=== PATIENT | male | born 1995 | race Caucasian/White ===

== ENCOUNTER 2022-09-09 08:54 | Emergency (ER) | payer MEDICAID, SELFPAY ==
[2022-09-09 09:00] VITALS: BP 142/86; PULSE 89; RESP 20; TEMP 36.7; O2SAT 97
--- NOTE | 2022-09-09 09:13 | ED.EAR ---
HPI - Ear Problem General Chief complaint: Ear Stated complaint: ears Time Seen by Provider: 09/09/22 09:14 Source: patient, RN notes reviewed and old records reviewed Mode of arrival: ambulatory Limitations: no limitations History of Present Illness HPI Narrative: 27 year old male who presents to [facility] with complaints of right ear pain for the past month but consistent discomfort for the past week. Patient reports he has feelings of fluid in his ear with some intermittent pain. Patient reports he has been taking Singulair daily using nasal saline also some nasal spray OTC from [facility]. Patient denies any fevers chills or sweats, or body aches. Patient reports chronic sinus congestion and drainage reports that he has had sinus surgery in past. MD Complaint: ear pain Location: right ear Duration: intermittent Severity: moderate Discharge from ear: Reports no Treatment prior to arrival: eardrops Related Data Home Medications Medication Instructions Recorded Confirmed amlodipine 10 mg tablet mg 09/09/22 lisinopril 10 mg tablet mg 09/09/22 montelukast 10 mg tablet mg 09/09/22 omeprazole 40 mg capsule,delayed mg 09/09/22 release pravastatin 40 mg tablet mg 09/09/22 sitagliptin phosphate 25 mg tablet mg 09/09/22 (Januvia) Allergies Allergy/AdvReac Type Severity Reaction Status Date / Time No Known Allergies Allergy Verified 09/09/22 09:16 Review of Systems Review of Systems: CONSTITUTIONAL: Denies malaise, chills, sweats, or fever. EYES: Denies visual changes, redness, or discharge. ENT: Reports rhinorrhea, congestion, sinus pain, right otalgia no sore throat. CARDIOVASCULAR: Denies chest pain, palpitations, or edema. RESPIRATORY: Reports no acute cough.? Denies dyspnea. GASTROINTESTINAL: Denies abdominal pain, nausea, vomiting, diarrhea SKIN: Denies rash or itching. MUSCULOSKELETAL: Denies myalgia. NEUROLOGIC: Reports some headaches. All systems reviewed & are unremarkable except as noted in HPI and below PMFSH Past Medical History Medical History (Updated 09/10/22 @ 08:44 by Opal Hood NP) Arthrogryposis Sinus infection Surgical History Surgical History (Updated 09/09/22 @ 09:38 by Opal Hood NP) History of sinus surgery Hx of appendectomy Social History Social History Smoking status: Never smoker Substance use type: does not use Living arrangements: with family Gender identity (if verbalized by the patient): Male Comments At time of signature, agree with nursing past medical, surgical, social and family history. There is no relevant family history pertinent to the presenting complaint Exam Narrative: GENERAL: Well-appearing, well-nourished, and in no acute distress. HEAD: Normocephalic EYES: PERRLA, conjunctivae clear ENT: Nares clear, turbinates edematous and erythematous, clear discharge. Mucous membranes moist. TM pearly retana with dull light reflex bilaterally; no tragal tenderness.fluid noted on right TM.. Oropharynx erythematous without lesions. Tonsils not enlarged and without exudate, no drooling, no hoarseness, no trismus, uvula midline.post nasal drainage NECK: Supple. No lymphadenopathy CHEST: Clear to auscultation, breath sounds equal. No wheezing, rhonchi, rales, or stridor. No respiratory distress, speaks in full sentences.no cough, SAO2 97% on room air HEART: Regular rate and rhythm. No murmur heard. SKIN: Warm, dry, no rash. NEURO: Alert and oriented x3. PSYCH: Normal mood and affect Course Course Emergency Course: Patient is aware of diagnosis, understands and agrees to treatment plan.? Anticipatory guidance given.? Patient agrees to follow-up as directed and is aware of reasons to seek care at the emergency department. Portions of this record may have been created with voice recognition software Level of Care: [facility] Care Visit V
== END 2022-09-09 09:33 | disposition home or self-care (01) ==
PROVIDERS: Emergency Provider Registered Nurse; PCP Internal Medicine
DX: H69.91 Unspecified Eustachian tube disorder, right ear (principal); J06.9 Acute upper respiratory infection, unspecified
CPT/HCPCS: 99203; G0463

== ENCOUNTER 2023-05-06 15:29 | Emergency (ER) | payer OTHER, MEDICAID, SELFPAY ==
--- NOTE | ~2023-05-06 | US_ITS ---
US scrotum doppler DATE: 05/06/2023 16:59 INDICATION: Scrotal pain TECHNIQUE: Real-time and color flow imaging and Doppler analysis COMPARISON: None FINDINGS: The right testicle measures 4.2 x 2 x 3 cm. The left testicle measures 4.6 x 2.1 x 2.5 cm. No testicular mass lesion or torsion is evident. There is vascular flow to both testicles. There is an approximately 7 mm cyst of the head of the right epididymis. No hydrocele or varicocele is demonstrated. IMPRESSION: No testicular mass lesion or torsion 7 mm cyst of head of right epididymis Reviewed, dictated and finalized at [facility]. Reviewed, dictated and finalized at [facility]. [facility] SERVICE COORDINATOR
[2023-05-06 15:36] VITALS: BP 134/97; PULSE 100; RESP 18; TEMP 37; O2SAT 100
--- NOTE | 2023-05-06 19:01 | ED.MALEGU ---
HPI - Male Genitourinary General Chief complaint: Urogenital-Male Stated complaint: Testicle pain Time Seen by Provider: 05/06/23 18:52 Source: patient Mode of arrival: ambulatory Limitations: no limitations History of Present Illness HPI Narrative: This is a 28 year old male that presents to the ER for right testicular pain. Reports intermittent over the last couple of weeks. Reports some dysuria. The pain worsened today which prompted him to be seen. Reports no concern for STDs. Denies fever, edema, erythema or hematuria. Related Data Home Medications Medication Instructions Recorded Confirmed amlodipine 10 mg tablet mg 09/09/22 lisinopril 10 mg tablet mg 09/09/22 montelukast 10 mg tablet mg 09/09/22 omeprazole 40 mg capsule,delayed mg 09/09/22 release pravastatin 40 mg tablet mg 09/09/22 sitagliptin phosphate 25 mg tablet mg 09/09/22 (Januvia) Allergies Allergy/AdvReac Type Severity Reaction Status Date / Time No Known Allergies Allergy Verified 09/09/22 09:16 Review of Systems Review of Systems: CONSTITUTIONAL: Denies fever GASTROINTESTINAL: Denies abdominal pain, nausea, vomiting GENITOURINARY: Reports dysuria. Denies hematuria. SKIN: Denies rash All systems reviewed & are unremarkable except as noted in HPI and below PMFSH Past Medical History Medical History (Updated 05/06/23 @ 20:07 by Gloria Whyte PA-C) Arthrogryposis History of gastroesophageal reflux (GERD) History of hyperlipidemia History of hypertension Surgical History Surgical History (Updated 09/09/22 @ 09:38 by Opal Hood NP) History of sinus surgery Hx of appendectomy Social History Social History Smoking status: Never smoker Substance use type: does not use Living arrangements: with family Gender identity (if verbalized by the patient): Male Exam Narrative: GENERAL: Well-appearing, well-nourished, and in no acute distress. HEAD: Normocephalic, atraumatic. EYES: EOMI. CHEST: Clear to auscultation. No respiratory distress. No wheezes rales or rhonchi HEART: Regular rate and rhythm. No murmur heard. Normal peripheral pulses. ABDOMEN: Soft, nontender, nondistended, normal active bowel sounds. No CVA tenderness EXTREMITIES: Normal range of motion. No edema. SKIN: Warm, dry, no rash. NEURO: No focal deficits. Alert and oriented x3. PSYCH: Normal mood and affect MALE GENITAL: No abnormal rashes or lesions. Mild tenderness to palpation of the right testicle. No abnormal erythema or edema of the scrotum Course Course Emergency Course: Patient updated on his workup. Reports he has outpatient follow up with urology. Would like to be discharged and follow up as planned Vital Signs Vital signs: Vital Signs Temperature 98.6 F 05/06/23 15:36 Pulse Rate 100 05/06/23 15:36 Respiratory Rate 18 05/06/23 15:36 Blood Pressure 134/97 H 05/06/23 15:36 Pulse Oximetry 100 05/06/23 15:36 Oxygen Delivery Room Air 05/06/23 15:36 Temperature 98.6 F 05/06/23 15:36 Pulse Rate 100 05/06/23 15:36 Respiratory Rate 18 05/06/23 15:36 Blood Pressure 134/97 H 05/06/23 15:36 Pulse Oximetry 100 05/06/23 15:36 Oxygen Delivery Room Air 05/06/23 15:36 MDM - Male Genitourinary MDM Narrative Medical decision making narrative: Patient presents to the emergency department for right testicular pain ongoing over the last couple of weeks. He is afebrile and nontoxic appearing. No concerning findings on exam. UA without evidence of infection. Testicular ultrasound shows a 7 mm cyst of the head of the right epididymis. No other acute abnormalities. Patient updated on his workup. Reports he has outpatient follow up with urology. Would like to be discharged and follow up as planned. He was given warnings to return to the ER Differential Diagnosis Differential diagnosis: Likely urinary tract infection, epididymitis and ot
--- NOTE | 2023-05-06 19:15 | PC.NURSE ---
Report received from BRYANT Gongora. Assumed care of patient at this time.
[2023-05-06 19:52] LABS: Appearance Urine Clear (Clear); Bacteria Urine None Seen /hpf; Bilirubin Urine Negative (Negative); Blood Urine Negative (Negative); Color Urine Dark Yellow (Yellow); Glucose Urine UA Negative (Negative); Ketones Urine Negative (Negative); Leukocyte Esterase Ur Negative LEU/UL (Negative); Nitrate Urine Negative (Negative); Non Pathogenic Casts 0-2; Protein Urine Trace mg/dL (Negative); RBC Urine 0-2 /hpf (0-2); Squamous Epithelial Cell Urine None seen /hpf (Few); WBC Urine 0-5 /hpf
[2023-05-06 19:54] LABS: Add Urine Microscopic? YES
== END 2023-05-06 20:35 | disposition home or self-care (01) ==
PROVIDERS: Emergency Provider Physician Assistant; PCP Internal Medicine
DX: N50.811 Right testicular pain (principal); E78.5 Hyperlipidemia, unspecified; I10 Essential (primary) hypertension
CPT/HCPCS: 76870; 81001; 93976; 99284

== ENCOUNTER 2023-12-12 18:34 | Emergency (ER) | payer OTHER, MEDICAID, SELFPAY ==
[2023-12-12 18:40] VITALS: BP 132/90; PULSE 91; RESP 20; TEMP 37.2; O2SAT 98
--- NOTE | 2023-12-12 18:51 | ED.GENADULT ---
HPI - General Adult General Chief complaint: Upper Respiratory Infection Stated complaint: Sore Throat/Headache Time Seen by Provider: 12/12/23 18:51 Source: patient, RN notes reviewed and old records reviewed Mode of arrival: ambulatory Limitations: no limitations History of Present Illness HPI narrative: 28-year-old male to [facility] for complaint of sore throat, headache, bilateral ear pain worse on the right, excessive sweating intermittently for 1 month. Patient reports history of sinus issues including septoplasty. Patient endorses 12 year history of chewing tobacco use; quit 3 years ago. Patient verbalizes concern for malignancy due to tobacco history. Patient has attempted to treat at home with [id number] medications with little relief. Patient denies shortness of breath, difficulty swallowing, hoarseness, fever, chest pain. Patient reports that he is anticipating the arrival of his baby girl in December wants to make sure that he does not have anything that is contagious. Patient able to tolerate fluids by mouth. Respirations even and nonlabored. Patient able to speak in complete sentences without difficulty. Patient in no acute distress. Related Data Home Medications Medication Instructions Recorded Confirmed amlodipine 10 mg tablet 10 mg PO DAILY 09/09/22 12/12/23 lisinopril 10 mg tablet 10 mg PO DAILY 09/09/22 12/12/23 montelukast 10 mg tablet 10 mg PO DAILY 09/09/22 12/12/23 omeprazole 40 mg capsule,delayed 40 mg PO DAILY 09/09/22 12/12/23 release pravastatin 40 mg tablet 40 mg PO DAILY 09/09/22 12/12/23 sitagliptin phosphate 25 mg tablet 25 mg PO DAILY 09/09/22 12/12/23 (Januvia) bupropion HCl 75 mg tablet 75 mg PO BID 12/12/23 12/12/23 ezetimibe 10 mg tablet 10 mg PO DAILY 12/12/23 12/12/23 linagliptin 5 mg tablet (Tradjenta) 5 mg PO DAILY 12/12/23 12/12/23 sulfasalazine 500 mg 500 mg PO BID 12/12/23 12/12/23 tablet,delayed release tretinoin 0.1 % topical cream See Rx Instructions .Route .COMPLEX 12/12/23 12/12/23 vilazodone 10 mg tablet 10 mg PO DAILY 12/12/23 12/12/23 Allergies Allergy/AdvReac Type Severity Reaction Status Date / Time No Known Allergies Allergy Verified 12/12/23 18:58 Review of Systems Review of Systems: All systems reviewed & are unremarkable except as noted in HPI and below Constitutional: Constitutional: Reports as per HPI, Reports excessive sweating and Reports headache(s) Eyes: Eyes: Reports no additional eye complaints ENT: Reports as per HPI, Reports otalgia ( Bilateral; worsening right), Reports nasal congestion and Reports sore throat Cardiovascular: Cardiovascular: Reports no additional cardiovascular complaints, Denies chest pain and Denies dyspnea Respiratory: Respiratory: Reports no additional respiratory complaints, Denies cough and Denies dyspnea Musculoskeletal: Musculoskeletal: Reports no additional musculoskeletal complaints Neurologic: Reports system reviewed and no additional complaints, except as documented Psychiatric: Psychiatric: Reports no additional psychiatric complaints PMFSH Past Medical History Medical History Arthrogryposis History of gastroesophageal reflux (GERD) History of hyperlipidemia History of hypertension Surgical History Surgical History History of sinus surgery Hx of appendectomy Social History Social History Smoking status: Never smoker Substance use type: does not use Living arrangements: with family Gender identity (if verbalized by the patient): Male Comments At the time of my signature, I reviewed and agree with the nursing past medical, surgical, social, and family history. There is no relevant family history pertinent to the patient complaint. Exam Const: General: cooperative, no acute distress, alert, tired appe
[2023-12-12 19:13] LABS: EDINFLUASCREEN Negative; EDINFLUBSCREEN Negative
[2023-12-12 19:14] LABS: EDMONONEGPOS Negative; EDSTREPNEGPOS1 Presumptive Negative
== END 2023-12-12 19:25 | disposition home or self-care (01) ==
PROVIDERS: Emergency Provider Nurse Practitioner Family; PCP Internal Medicine
DX: H66.92 Otitis media, unspecified, left ear (principal); Z20.822 Contact with and (suspected) exposure to COVID-19; K21.9 Gastro-esophageal reflux disease without esophagitis; E78.5 Hyperlipidemia, unspecified; I10 Essential (primary) hypertension; Z87.891 Personal history of nicotine dependence
CPT/HCPCS: 36416; 86308; 87081; 87426; 87804; 87880; 99213; G0463

== ENCOUNTER 2024-05-06 10:10 | Emergency (ER) | payer OTHER, MEDICAID, SELFPAY ==
[2024-05-06 10:26] VITALS: BP 141/95; PULSE 105; RESP 18; TEMP 37.6; O2SAT 98
--- NOTE | 2024-05-06 10:44 | ED.URI ---
HPI - URI/Sore Throat General Chief Complaint: Upper Respiratory Infection Stated Complaint: Sore Throat/Headache History of Present Illness HPI Narrative: Patient presents with sore throat, nasal drainage cough fever and body aches. No shortness of breath no chest pain no trouble swallowing no drooling. Patient is not taking thing [id number] for symptoms. Related Data Home Medications ?Medication ?Instructions ?Recorded ?Confirmed ?Last Taken ?Type amlodipine 10 mg tablet 10 mg PO DAILY 09/09/22 05/06/24 Unknown History lisinopril 10 mg tablet 10 mg PO DAILY 09/09/22 05/06/24 Unknown History montelukast 10 mg tablet 10 mg PO DAILY 09/09/22 05/06/24 Unknown History omeprazole 40 mg capsule,delayed 40 mg PO DAILY 09/09/22 05/06/24 Unknown History release pravastatin 40 mg tablet 40 mg PO DAILY 09/09/22 05/06/24 Unknown History bupropion HCl 75 mg tablet 75 mg PO BID 12/12/23 05/06/24 Unknown History ezetimibe 10 mg tablet 10 mg PO DAILY 12/12/23 05/06/24 Unknown History linagliptin 5 mg tablet (Tradjenta) 5 mg PO DAILY 12/12/23 05/06/24 Unknown History sulfasalazine 500 mg 500 mg PO BID 12/12/23 12/12/23 Unknown History tablet,delayed release vilazodone 10 mg tablet 10 mg PO DAILY 12/12/23 12/12/23 Unknown History sulfasalazine 500 mg tablet 05/06/24 Unknown History Allergies Allergy/AdvReac Type Severity Reaction Status Date / Time No Known Allergies Allergy Verified 05/06/24 10:22 Review of Systems Review of Systems: CONSTITUTIONAL: Denies chills, or sweats. Reports fever and generalized body aches EYES: Denies visual changes, redness, or discharge. ENT: Denies otalgia. Reports nasal congestion runny nose and sore throat CARDIOVASCULAR: Denies chest pain, palpitations, or edema. RESPIRATORY: Denies dyspnea. Reports occasional cough GASTROINTESTINAL: Denies abdominal pain, nausea, vomiting, or diarrhea. GENITOURINARY: Denies dysuria or hematuria. SKIN: Denies rash or itching. MUSCULOSKELETAL: Denies back pain, joint pain, or myalgia. Reports generalized body aches NEUROLOGIC: Denies headache, numbness, or weakness. PSYCHIATRIC: Denies anxiety or depression. [facility] Past Medical History Medical History Arthrogryposis History of gastroesophageal reflux (GERD) History of hyperlipidemia History of hypertension Surgical History Surgical History History of sinus surgery Hx of appendectomy Social History Social History Smoking status: Never smoker Substance use type: does not use Living arrangements: with family Gender identity (if verbalized by the patient): Male Comments At time of signature, agree with nursing past medical, surgical, social and family history. There is no relevant family history pertinent to the presenting complaint Exam Narrative: The patient is a well-developed, well-nourished in no acute distress. SKIN: Skin is warm and dry without erythema, swelling or exudate. There is good turgor. No tenting. HEAD: Atraumatic. Normocephalic. No temporal or scalp tenderness. EYES: Moist and bright. Sclera and conjunctivae normal. No discharge. PERRLA. Extraocular motions intact. Gross visual acuity intact. EARS: Pinna is normal shape and contour. Clear external auditory canals. TM pearly hazel with good cone of light, no erythema or suppuration. Bilateral cerumen noted no gross hearing deficit. NOSE: pink, moist mucosa with good air movement. Clear rhinorrhea without nasal flaring. Septum midline. Mouth: moist mucous membranes. THROAT; mild erythema noted to posterior oropharynx with moderate postnasal drainage. Without exudate or ulceration.. Uvula midline. Normal movement of soft palate. NECK: Supple and nontender with full range of motion without discomfort. No meningeal signs. LUNGS: Equal and bilateral breath sounds without wheezes, rales or rhonchi. CHEST: The chest wall is without retractions or use of accessory muscles. HEART: Has a regular rate and rhythm without murmur, gallops, click or rub. ABDOMEN: Soft, nontender with positive active bowel sounds. No rebound tenderness. EXTREMITIES: Without cyanosis, clubbing or edema. Equal 2+ distal pulses and 2 second capillary refill noted. NEUROLOGIC: alert, active, . The patient moves all extremities with normal muscle strength. Normal muscle tone is noted. Normal coordination is noted. NO focal neurological findings noted. Course Course Level of Care: Express Care Visit Vital Signs Vital signs: Vital Signs Temperature 37.6 C 05/06/24 10:26 Pulse Rate 105 H 05/06/24 10:26 Respiratory Rate 18 05/06/24 10:26 Blood Pressure 141/95 H 05/06/24 10:26 Pulse Oximetry 98 05/06/24 10:26 Oxygen Delivery Room Air 05/06/24 10:26 Temperature 37.6 C 05/06/24 10:26 Pulse Rate 105 H 05/06/24 10:26 Respiratory Rate 18 05/06/24 10:26 Blood Pressure 141/95 H 05/06/24 10:26 Pulse Oximetry 98 05/06/24 10:26 Oxygen Delivery Room Air 05/06/24 10:26 Please ISAAC schedule a followup visit with your personal physician for further evaluation and treatment. Including recheck and discussion of your blood pressure. If your symptoms persist, change or worsen significantly before you can contact your personal physician then please, without delay, go to the emergency department for further evaluation Discharge Plan Discharge Clinical Impression: Upper respiratory infection, Viral infection Patient Disposition: Home, Self-Care Condition: Stable Instructions: Antibiotic Form Additional Instructions: *Throw away your current toothbrush and begin using a new toothbrush in 48 hours in order to prevent re-infection. If anyone else's toothbrush is stored near yours, they should also throw away their current toothbrush and begin using a new one. *Sanitize all reusable water bottles. *Do not share items with others. *Wash your hands often. Supportive care/Soothing measures/Pain relief: *Avoid cigarette smoke (including secondhand smoke) *Avoid acidic foods and beverages *Eat a soft diet for the next 3-4 days *Salt water gargles may alleviate some of the throat discomfort. Most recipes call for ? to ? teaspoon of salt per 8 ounces (approximately 240 mL) of warm water. *You can take tylenol or ibuprofen per the package instructions for pain/fever. *Sipping cold or warm beverages (eg, tea with honey or lemon) *Eat cold or frozen desserts (eg, ice cream, popsicles) *Sucking on ice *Sucking on hard candy Viruses are everywhere and can spread like wildfire. Sx can last up to 3-4 weeks. Treatment is aimed toward your specific symptoms. You must treat your symptoms in order to feel better while the virus runs it's course. Increase fluids especially water. Do not share items with others. You can take Tylenol or ibuprofen per the package instructions for pain/fever. Wash your hands as often as possible. Purchase and begin using an over the counter antihistamine/decongestant combo such as Zyrtec D, Belinda D, Claritin D as well as Flonase nasal spray per the package instructions. Salt water gargles may alleviate some of your throat discomfort. Go to the ER if your symptoms become worse of if ANY new symptoms develop Patient Language: Tongan Prescriptions: No Action pravastatin 40 mg tablet 40 mg PO DAILY omeprazole 40 mg capsule,delayed release(DR/EC) 40 mg PO DAILY amlodipine 10 mg tablet 10 mg PO DAILY lisinopril 10 mg tablet 10 mg PO DAILY montelukast 10 mg tablet 10 mg PO DAILY bupropion HCl 75 mg tablet 75 mg PO BID ezetimibe 10 mg tablet 10 mg PO DAILY Tradjenta 5 mg tablet 5 mg PO DAILY vilazodone 10 mg tablet 10 mg PO DAILY sulfasalazine 500 mg tablet,delayed release (DR/EC) 500 mg PO BID sulfasalazine 500 mg tablet Follow-up/Referrals: Shakira,MD Pankaj [Primary Care Provider] - Stand Alone Forms: Work/School Release IP
[2024-05-06 10:52] LABS: EDSTREPNEGPOS1 Negative (Negative)
[2024-05-06 11:03] LABS: EDCOVIDSCREEN Negative (Negative); EDINFLUASCREEN Negative (Negative); EDINFLUBSCREEN Negative (Negative)
--- OUTSIDE RECORDS SUMMARY | 2024-05-13 10:42 | XMS_ITS | Encounter Summary ---
Author Organization [facility] Address [address] [place] [address] Care Team Providers Care Mobile Game Engineer Name Role Phone Pankaj Rosenberg MD Primary Care Provider Reason for Visit * Auth/Cert (Routine) Specialty Diagnoses / Procedures Referred By Horacio t Referred To Contact Diagnoses Gallbladder polyp Gallbladder polyp Procedures LAPAROSCOPIC CHOLECYSTECTOMY Referral ID Status Reason Start Date Expiration Date Visits Re quested Visits Authorized [id number] 1 1 Encounter Details Date Type Department Care Team (Late st Contact Info) Description 07/13/2022 7:25 AM DOMESTIC TRAVEL CONSULTANT Anesthesia Event [facility] [address] [place] [address] Ramin Cuello MD [address] [place] [id number] Marla Richard, POSITION DESCRIPTION MANAGER-HONEY BLENDER [address] [facility] [place] [address] Anesthesia Record Procedure Summary Procedure Name Responsible Anesthesiologist Anesthesia Start Time Anesthesia Stop Time LAPAROSCOPIC CHOLECYSTECTOMY (Abdomen) Ramin Cuello MD 07/13/22 0725 07/13/22 0948 Events Date Time Event Comment 07/13/2022 0718 0725 An Start 0725 Pt In Room 0725 An Start Data 0731 PT Reassessment 0731 Induction 0734 An Intubation 0734 Anes Ready 0751 Time Out Anesthesia part icipated in timeout at the time documented in the record by nursing 0753 Proc Start 0933 Proc Stop 0933 An Emergence 0935 Extubation 0938 an stop data 0938 Pt out of Room 0938 ANPTO2 0948 An Stop Meds Name Total ceFAZolin 2,000 mg IVPB 3 g midazolam 2 mg/2mL injection 2 mg fentaNYL 100 mcg/2ml injection 100 mcg propofol 200mg/20mL injection 250 mg rocuronium 50 mg/5 mL injection 120 mg hydromorphone 2 mg/10mL prefilled syring e 1 mg sugammadex 200 mg/2mL injection 250 mg ondansetron 4mg/2mL injection 4 mg dexmedeTOMIDine (Precedex) 80 mcg in 20 mL infusion 20 mcg lactated ringers infusion 750 mL * Agents Name Insp. N2O Exp. Isoflurane Exp. N2O O2 Air Insp. Isoflurane * Blood No blood administrations on file. Lines, Drains, and Airways Type Details Placement Removal Peripheral IV Date: 07/13/22; Time : 06; Orientation: Anterior, Distal, Right; Placed By: MAEGAN; Tolerance: Well 07/13/22 0644 by Maria A Abreu RN 07/13/22 1118 by Mounika Perry RN ETT Date: 07/13/22; Time : 733; Placed By: Saman Orantes; Vent: mask not attempted; Induction: Standard IV, Rapid Sequence; Blade Type: Video; Blade Size: 4; Laryngoscopy View: Grade 1 (full cords); Intubation Adjuncts: Stylet, Video Laryngoscope; Tube: Endotracheal Tube; Placement: Oral; Tube Type: Cuffed-inflated; Tube Size(mm): 8 MM; Depth of Insertion: 23 CM; Measured From: teeth; Attempts: 1; Cuff Infated: Air; Cuff Vol(mL): 10 mL; Verified By: Direct visualization, Bilateral breath sounds, Chest Auscultation, CO2 Monitor 07/13/22 0734 by Jenifer Coto Anes Asst 07/13/22 0935 by Jenifer Coto Anes Asst Peripheral IV Date: 07/13/22; Time : 07; Orientation: Right; Placed By: joann coto; Tolerance: Well, General Anesthesia 07/13/22 0735 by Jenifer Coto Anes Asst 07/13/22 1052 by Mounika Perry RN Gastric Tube 07/13/22; 0745; charleen lindsey, caa; OGT; 18; Well, General Anesthesia; 07/13/22; 0934; lashonda; Per protocol 07/13/22 0745 by Jenifer Coto Anes Asst 07/13/22 0934 by Jenifer Coto, Cherelles Asst Procedural Site (Incision) 07/13/22; 0809; Abdomen; Laparoscopic; 07/13/22; 1727 07/13/22 0809 by Jorge A Keith RN 07/13/22 1727 by Generic, Auto Release documented in this encounter Social History Tobacco Use Types Packs/Day Years Used Date Smoking Tobacco: Never Smokeless Tobacco: Former Chew Quit: 09/15/2020 Alcohol Use Standard Drinks/Week Comments Yes 0 (1 standard drink = 0.6 oz pur e alcohol) occ AUDIT-C Answer Date Recorded Q1: How often do you have a drink containing alc ohol? Monthly or less 03/17/2022 Q2: How many drinks containi ng alcohol do you have on a typical day when you are drinking? 1 or 2 03/17/2022 Q3: How often do you have si x or more drinks on one occasion? Never 03/17/2022 Hunger Vital Sign Answer Date Recorded Within the past 12 months, y ou worried that your food would run out before you got the money to buy more. Never true 03/18/20 22 Within the past 12 months, t he food you bought just didn't last and you didn't have money to get more. Never true 03/18/2022 Sex and Gender Information Value Date Recorded Sex Assigned at Not on file Gender Identity Not on file Sexual Orientation Not on file documented as of this encounter Functional Status Functional Status Response Date of Assess ment Is person deaf or have serious hearing difficult y? No 03/18/2022 Is person blind or have serious difficulty seein g? No 03/18/2022 Does person have serious dif ficulty walking/climbing stairs? No 03/18/2022 Does person have difficulty dressing/bathing? No 03/18/2022 Does person have difficulty doing errands alone? No 03/18/2022 Cognitive Status Response Date of Assessm ent Does person have difficulty concentrating/remembering/making decisions? No 03/18/2022 documented as of this encounter Progress Notes * Ramin Cuello MD - 07/13/2022 11:00 AM CST ANESTHESIA POSTOP EVALUATION NOTE Procedure: LAPAROSCOPIC CHOLECYSTECTOMY (Abdomen) Chuck Barlow is a 27 year old male Patient Vitals for the past 6 hrs: BP Temp Pulse Resp SpO2 Pain Rating Score #1 Pain Scale/Observation Pulse - (SPO2/Cuff) 07/13/22 0940 128/77 99.1 ??F (37.3 ??C) 99 12 97 % 4 N;B -- 07/13/22 0945 117/65 -- 109 23 98 % -- -- -- 07/13/22 0950 114/80 -- 98 20 99 % -- B -- 07/13/22 0955 120/68 -- 99 16 99 % -- -- -- 07/13/22 1000 124/84 -- 95 20 99 % 4 N -- 07/13/22 1005 132/76 -- 92 18 99 % -- -- -- 07/13/22 1010 117/65 -- 97 21 99 % -- -- -- 07/13/22 1015 116/70 98.6 ??F (37 ??C) 100 18 95 % 4 N -- 07/13/22 1020 114/63 -- 92 17 94 % -- -- -- 07/13/22 1025 112/73 -- 96 10 94 % 3 N -- 07/13/22 1038 -- 98.7 ??F (37.1 ??C) -- -- -- -- -- -- 07/13/22 1039 -- 98.7 ??F (37.1 ??C) -- -- -- -- -- -- 07/13/22 1040 -- -- -- -- -- 4 N -- 07/13/22 1045 109/72 -- 91 19 93 % -- -- 90 bpm 07/13/22 1050 120/78 -- 95 13 93 % -- -- 94 bpm 07/13/22 1100 115/76 -- 88 22 93 % -- -- 88 bpm 07/13/22 1101 115/76 -- 94 14 93 % -- -- 94 bpm 07/13/22 1105 122/74 -- 83 26 92 % -- -- 83 bpm 07/13/22 1110 117/72 -- 90 18 94 % -- -- 89 bpm 07/13/22 1115 -- -- -- -- -- 2 N -- Anesthesia Type: general ETT Pre-op Diagnosis Codes: * Gallbladder polyp [K82.4] Mental Status: awake Neuro Status: No numbness, tingling or visual disturbances Respiratory Function: natural Cardiac Function: stable Postop Pain: acceptable to the patient Postop Hydration: adequate Postop Nausea: none Assessment: no apparent anesthetic complications Patient Disposition: Release from Anesthesia Care Additional Comments: Patient reports that pain is well-controlled and is ready for discharge to thenext level of care. NOTABLE EVENTS: There were no known notable events for this encounter. STIC TRAVEL CONSULTANT * aRmin Cuello MD - 06/29/2022 1:45 PM CST Images from the original note were not included. ANESTHESIA PREOPERATIVE EVALUATION NOTE Procedure: LAPAROSCOPIC CHOLECYSTECTOMY WITH POSSIBLE OPEN (Abdomen) Vitals: LMP: No LMP for male patient. OB Status: unknown ANESTHESIA PRE-EVALUATION NOTE History of Present Illness: 27 year old male with history of gastroschisis and small bowel obstruction with multiple growing polyps. He is scheduled for laparoscopic cholecystectomy, possible open with Dr. Miles. Medical history is significant for HLD, KARRIE (CPAP compliant), NIDDM (HgA1c 5.6%), obesity (BMI 37),GERD (well controlled), HTN No known allergies The patient is a current non-smoker. Physical Exam: Orientation X3 Airway/Mallampati Score: III Mouth Opening Distance: 3 fingerwidths Neck ROM: full (thick neck) TM Distance: > 3 FB Teeth: normal Heart: normal - S1 S2 Lungs: clear to ausculation bilaterally (decreased at bases) Abdomen Exam: obese Review of Systems: History of anesthetic complications: Yes Sleep Apnea Risk: Yes, CPAP - compliant Malignant Hyperthermia: No Delayed Emergence: No Emergence Agitation: No Induction/Emergence Bronchospasm: No Post Dural Puncture Headache: No Atypical Pseudocholinesterase: No Difficult IV Access: Yes (use sonosite) GERD: Yes, well controlled Poor Exercise Tolerance: No (can walk 3-4 blocks without CP or SOB at moderate pace) Recent Chest Pain: No Shortness of Breath: No AICD/Pacemaker: No Renal Disease: No Diagnostic Tests: ECG(s) reviewed: Yes Lab(s) reviewed: Yes (06/29/22). Other Findings: 08/18/21 SINUS RHYTHM 78 bpm ANESTHESIA PLAN ASA Score: 2 NPO Status: Patient instructed to be NPO after midnight Anesthesia Plan: general ETT Planned Induction: intravenous Planned Postop Destination: PACU Anesthetic plan was discussed with: patient Anesthetic Plan discussion was: Consented The patient's procedural Anesthetic Plan was discussed with the resident, orthodontic technician assistant and WAFER POLISHING WORKER. This evaluation was based on PAT clinic visit I. Perioperative Cardiac Risk Index Stratification based on 2014 ACC/AHA Guidelines for patients undergoing noncardiac surgery Perioperative risk of a Major Adverse Cardiac Event (MACE) during hospitalization. Add one point (0-6) for each positive RCRI (Revised Cardiac Risk Indicator) 1. Is the surgery high-risk? NO 2. History of ischemic heart disease? NO 3. History of CHF? no New Murmur? no 4. History of cerebrovascular disease? Prior TIA or stroke no Carotid bruit ? no 5. Insulin-dependent Diabetes? YES 6. Preoperative creatinine > 2 mg/dl? no Baseline Cr? 0.8-0.97 Total RCRI / MACE score 1 Point >= 0.9% If MACE < 1%, no further testing required. Proceed to surgery. Patient is at low risk of MACE. If MACE > 1% Elevated risk. Need to assess the patient's functional capacity. 4 METs = Can walk up a flight of steps or a hill or walk on level ground at 3 mph If > 4 METs. Proceed to surgery. If < 4 METs or unknown functional capacity then discuss with attending, as further workup may beindicated. II. Consults: NO III. CIEDs Does patient have a CIED (cardiovascular implantable electronic device eg: PM, AICD)? no IV. Anticoagulants Is patient receiving chronic antiplatelet/ anticoagulant medications? What is periop plan ? NO V. Previous blood transfusion? no VII. Known KARRIE or STOP-BANG> 5 yes Snoring, feel Tired, Observed apnea, high blood Pressure, BMI>35, Age > 50, Neck circumference > 18 VIII. Known or suspected difficult airway no IX. Frailty screen: No data recorded X. Suboxone (Buprenorphine / Naloxone) therapy? N/A XI. Most recent EKG 4/5/22 SINUS RHYTHM 78 bpm No previous ECG available for comparison XII. Additional testing needed within 3 months prior to DOS (if possible, else on DOS) - CBC w/o diff if ASA >= 3 OR expected blood loss >250 OR previously abnormal - BMP if ASA >= 3 AND non low- risk procedure / previously abnormal - CMP (instead of BMP) for patient with chronic liver disease or previously abnormal -PT/ PTT/ INR if recent use of anticoagulants OR scheduled for major vascular procedures including aortic and carotid stents / aneurysm coiling / TIPS Additional testing needed on DOS : - EPOC blood glucose for patients w/ DM - EPOC whole blood K+ for patient with ESRD or poorly controlled K+ Labs ordered today including PAT and surgeon orders: CBC, BMP and T&S Labs/ tests ordered or in need of review on DOS: T&S and POC glucose Summary: Chuck Barlow is a 27 year old male presenting for LAPAROSCOPIC CHOLECYSTECTOMY WITH POSSIBLE OPEN (Abdomen). They have an ASA score of 2 and a RCRI / MACE score of 0 Points >= 0.4% Follow up results - have ALL the above ordered labs and vital signs been reviewed? YES - results are grossly WNL for this patient They ARE OPTIMIZED - PAT EVALUATION COMPLETE Marla Richard, POSITION DESCRIPTION MANAGER-HONEY BLENDER 06/30/2022 9:01 AM for this procedure. Preoperative plan was not discussed with PAT attending, preoperative plan and physical exam will bediscussed with attending in holding area. Final clearance pending evaluation by the attending Anesthesiologist on the day of surgery. PAT evaluation end: BMI, Height, Weight Tobacco History Estimated body mass index is 37.73 kg/m?? as calculated from the following: Height as of this encounter: 1.803 m (5' 11 ). Weight as of this encounter: 122.7 kg (270 lb 8 oz). Social History Tobacco Use Smoking Status Never Smokeless Tobacco Former ??? Types: Chew ??? Quit date: 09/15/2020 Alcohol History Drug History Social History Substance and Sexual Activity Alcohol Use Yes Comment: occ Social History Substance and Sexual Activity Drug Use Never Outpatient Medications: Inpatient Medications: Outpatient Medications Marked as Taking for the 06/29/22 encounter (Hospital Encounter) with [facility] 1 Medication Sig Last Dose ??? ketoconazole Apply to affected area Two times a week ??? omeprazole Take 1 (one) capsule by mouth once daily as needed No current facility-administered medications for this encounter. Allergies: No Known Allergies Relevant Problems Anesthesia (+) KARRIE (obstructive sleep apnea) Cardiovascular (+) Essential hypertension, benign Neuro/Psych (+) History of gastroschisis Pulmonary (+) KARRIE (obstructive sleep apnea) GI (+) Gastroesophageal reflux disease without esophagitis Endocrine (+) Controlled type 2 diabetes mellitus without complication, without long-term current use of insulin ([facility]) Other (+) Nonalcoholic steatohepatitis Problem List: Patient Active Problem List Diagnosis Date Noted ??? Leukocytosis 03/21/2022 Priority: Not Prioritized ??? Partial small bowel obstruction ([facility]) 03/17/2022 Priority: Not Prioritized ??? S/P small bowel resection 09/17/2021 Priority: Not Prioritized ??? S/P exploratory laparotomy 09/17/2021 Priority: Not Prioritized ??? History of gastroschisis 09/16/2021 Priority: Not Prioritized ??? KARRIE (obstructive sleep apnea) 09/12/2021 Priority: Not Prioritized ??? Pure hypercholesterolemia 09/12/2021 Priority: Not Prioritized ??? Gastroesophageal reflux disease without esophagitis 07/13/2021 Priority: Not Prioritized ??? Controlled type 2 diabetes mellitus without complication, without long-term current use of insulin ([facility]) 06/16/2021 Priority: Not Prioritized ??? Arthrogryposis 06/15/2021 Priority: Not Prioritized ??? Essential hypertension, benign 12/11/2020 Priority: Not Prioritized ??? Gallbladder polyp 12/11/2020 Priority: Not Prioritized ??? Mixed hyperlipidemia 12/11/2020 Priority: Not Prioritized ??? Nonalcoholic steatohepatitis 12/11/2020 Priority: Not Prioritized ??? Deviated nasal septum 12/13/2019 Priority: Not Prioritized Last Assessment & Plan: Continue nasal saline 2-3 times per day May blow nose gently Restart Allergy medications once cleared by Surgical Scrub Tech PROCEDURE PERFORMED: Septoplasty Submucosal Reduction of Inferior Turbinates bilaterally Last Assessment & Plan: Continue nasal saline 2-3 times per day May blow nose gently Restart Allergy medications once cleared by Surgical Scrub Tech PROCEDURE PERFORMED: Septoplasty Submucosal Reduction of Inferior Turbinates bilaterally ??? Hypertrophy of nasal turbinates 12/13/2019 Priority: Not Prioritized Last Assessment & Plan: Septoplasty and Inferior turbinate submucosal reduction bilaterally Risks and complications include anesthesia, bleeding, infection, injury to surrounding structures including brain with csf leak, eyes with vision changes, nasal mucosa, atrophic rhinitis, septal perforation, no guarantee that sense of smell will return, need for further surgery. Added automatically from request for surgery [id number] ??? Allergic rhinitis 10/22/2019 Priority: Not Prioritized Last Assessment & Plan: Continue nasal saline 2-3 times per day May blow nose gently Restart Allergy medications once cleared by Surgical Scrub Tech Last Assessment & Plan: Continue nasal saline 2-3 times per day May blow nose gently Restart Allergy medications once cleared by Surgical Scrub Tech ??? Elbow problem 09/10/2013 Priority: Not Prioritized ??? Insomnia 09/10/2013 Priority: Not Prioritized Medical History: Past Medical History: Diagnosis Date ??? Arthrogryposis 06/15/2021 ??? Controlled type 2 diabetes mellitus without complication, without long-term current use of insulin ([facility]) 06/16/2021 last A1C 5.6 1 month ago ??? Essential hypertension controlled with medication ??? GERD (gastroesophageal reflux disease) controlled with medication ??? 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 KARRIE (obstructive sleep apnea) 09/12/2021 Surgical History: Past Surgical History: Procedure Laterality Date ??? Laparotomy N/A 09/17/2021 N/A; LAPAROTOMY EXPLORATORY, BOWEL RESECTION, ENTROLYSIS ??? Small Bowel Resection EVP BUSINESS DEVELOPMENT Status: No LMP for male patient. unknown OB History No obstetric history on file. Covid Vaccine: Lab Results: Recent Labs Base Name 03/21/22 0815 [id number] SPECIMENTYPE Cap Fingerstick Recent Labs Component Name 06/29/22 1504 WBC 9.6 RBC 5.15 HCT 41.7 HGB 13.5 PLTCOUNT 359 MCV 81.0 MCH 26.2* MCHC 32.4 MPV 10.3 Recent Labs Component Name 06/29/22 1504 ABORH O POS ABSCG NEG Recent Labs Component Name 03/17/22 1703 BLOODU Negative WBCU 0-5 NITRITE Negative PROTEINU Negative Recent Labs Component Name 06/29/22 1504 POTASSIUM 4.0 CALCIUM 9.7 CO2 23 GLUCOSE 150* BUN 11 CREATININE 0.63* Recent Labs Component Name 03/21/22 0606 MAGNESIUM 2.1 Recent Labs Component Name 03/21/22 0606 PHOS 3.7 No results found for requested labs within last 120 days. Recent Labs Result Component Current Result Alkaline Phosphatase 113 (03/17/2022) ALT 40 (03/17/2022) Anion Gap 15 (06/29/2022) AST 17 (03/17/2022) eGFR by CKD-EPI >90 (06/29/2022) STIC TRAVEL CONSULTANT documented in this encounter Procedure Notes * Jenifer Coto Anes Asst - 07/13/2022 8:05 AM CSTAssociated Order(s): ETT Placement Endotracheal Tube Placement: Patient Location: OR. Intubation Event Date/Time: 07/13/2022 7:34 AM Procedure: intubation (85236). Procedure Section: Sedation: under general anesthesia. Indications for Airway Management: anesthesia Procedure pretreatments used? No Induction: standard IV and rapid sequence Patient Position: sniffing and supine (shoulder roll) Mask Ventilation: not attempted. Blade Type: Video Blade Size: 4 Laryngoscopy View: grade 1 (full cords) Intubation Adjuncts: stylet and video laryngoscope Tube: endotracheal tube Placement: oral Tube type: cuff - inflated Tube Size (MM): 8 Depth of Insertion (CM): 23 Measured From: teeth Cuff volume (mL): 10 Cuff Inflated With: air Number of Attempts: 1. Placement Verified By: direct visualization, bilateral breath sounds, chest auscultation and CO2 monitor CXR Findings: ETT in proper place. Tube secured with: adhesive tape. Dentition unchanged? Yes Difficult Airway? No. Procedure Start Time: 07/13/2022 7:34 AM. Procedure End Time: 07/13/2022 7:34 AM. Procedure Total Time: 0 minutes. Staff Section Anesthesia Provider: Jenifer Coto Anes Asst, Performed the procedure STIC TRAVEL CONSULTANT documented in this encounter Miscellaneous Notes * Addendum Note - Ramin Cuello MD - 07/13/2022 5:00 PM CST Addendum created 07/13/22 1700 by Ramin Cuello MD Intraprocedure Staff edited STIC TRAVEL CONSULTANT * Anesthesia Transfer of Care - Jenifer Coto Anes Asst - 07/13/2022 9:48 AM CST ANESTHESIA TRANSFER OF CARE NOTE Today's Date: 07/13/2022 Date of : 1995 Patient: Chuck Barlow Procedure(s): LAPAROSCOPIC CHOLECYSTECTOMY Surgeon(s): Primary: Carolyn Miles MD Resident - Assisting: Jessica Vogel MD; Serena Farmer MD Preop Diagnosis: Pre-op Diagnois: * Gallbladder polyp [K82.4] Pre-op Meds (From admission, onward) Start Stop Status Route Frequency Ordered 07/13/22 0746 ceFAZolin (Ancef) 2,000 mg in 50 mL IVPB -- Sent IV PRN 07/13/22 0747 07/13/22 0750 dexmedeTOMIDine (Precedex) 80 mcg in 20 mL infusion -- Sent IV PRN 07/13/22 0808 07/13/22 0731 fentaNYL (PF) (Sublimaze) injection -- Sent IV PRN 07/13/22 0807 07/13/22 0758 HYDROmorphone HCl-NaCl 2-0.9 MG/10ML-% SOSY -- Sent IV PRN 07/13/22 0758 07/13/22 0545 lactated ringers infusion -- Dispensed IV PRE-OP CONTINUOUS 07/13/22 0539 07/13/22 0725 midazolam (Versed) injection -- Sent IV PRN 07/13/22 0807 07/13/22 0908 ondansetron (Zofran) injection -- Sent IV PRN 07/13/22 0908 07/13/22 1000 oxyCODONE (immediate release) (Roxicodone) tablet 5 mg 07/13 2158 Sent PO ONCE 07/13/22 0944 07/13/22 0731 propofol (Diprivan) injection -- Sent IV PRN 07/13/22 0807 07/13/22 0731 rocuronium (Zemuron) injection -- Sent IV PRN 07/13/22 0808 07/13/22 0931 sugammadex (Bridion) injection -- Sent IV PRN 07/13/22 0931 Post-op Diagnosis: * Gallbladder polyp [K82.4] . No Known Allergies Vitals: Patient Vitals for the past 3 hrs: BP Temp Pulse Resp SpO2 07/13/22 0945 117/65 -- 109 23 98 % 07/13/22 0940 128/77 99.1 ??F (37.3 ??C) 99 12 97 % Lines, Drains, and Airways Type Details Placement Removal Peripheral IV Date: 07/13/22; Time: 643; Orientation: Anterior, Distal, Left; Location: Wrist; Placed By: MAEGAN; Gauge: 18 Gauge; Locals: None; Tolerance: Well 07/13/22643 by Maria A Abreu RN ETT Date: 07/13/22; Time: 733; Placed By: Saman Orantes; Vent: mask not attempted; Induction: Standard IV, Rapid Sequence; Blade Type: Video; Blade Size: 4; Laryngoscopy View: Grade 1 (full cords); Intubation Adjuncts: Stylet, Video Laryngoscope; Tube: Endotracheal Tube; Placement: Oral; Tube Type: Cuffed- inflated; Tube Size(mm): 8 MM; Depth of Insertion: 23 CM; Measured From: teeth; Attempts: 1; Cuff Infated: Air; Cuff Vol(mL): 10 mL; Verified By: Direct visualization, Bilateral breath sounds, Chest Auscultation, CO2 Monitor 07/13/22733 by Jenifer Coto Anes Asst 07/13/22934 by Jenifer Coto Anes Asst Peripheral IV Date: 07/13/22; Time: 734; Orientation: Right; Location: Foot; Placed By: joann coto; Gauge: 20 Gauge; Locals: None; Tolerance: Well, General Anesthesia 07/13/22 0735 by Jenifer Coto Anes Asst Gastric Tube 07/13/22; 0745; lashonda, caa; OGT; 18; Well, General Anesthesia; 07/13/22; 0934; lashonda; Per protocol 07/13/22 0745 by Jenifer Coto Anes Asst 07/13/22 0934 by Jenifer Coto Anes Asst Intraprocedure I/O Totals Intake lactated ringers infusion 250.00 mL ceFAZolin 2,000 mg IVPB 10.00 mL Total Intake 260 mL Output Estimated Blood Loss 25 mL Total Output 25 mL Net Net Volume 235 mL Patient Transfer Location: PACU Transport Airway: spontaneous respirations and supplemental O2 Transport Monitoring: heart rate and continuous pulse oximetry Complications: None Handoff Given? Yes Checklist or Protocol - The worrell handoff elements that must be included in the transfer of care checklist include: 1. Identification of patient. 2. Identification of responsible practitioner (PACU nurse or advanced practitioner). 3. Discussion of pertinent medical history. 4. Discussion of the surgical/procedure course (procedure, reason for surgery, procedure performed). 5. Intraoperative anesthetic management and issue/concerns. 6. Expectations/Plans for the early post-procedure period. 7. Opportunity for questions and acknowledgement of understanding of report from the receiving PACUteam. Saman Orantes STIC TRAVEL CONSULTANT * Anesthesia Transfer of Care - Jenifer Coto Anes Asst - 07/13/2022 9:47 AM CST ANESTHESIA TRANSFER OF CARE NOTE Today's Date: 07/13/2022 Date of : 1995 Patient: Chuck Barlow Procedure(s): LAPAROSCOPIC CHOLECYSTECTOMY Surgeon(s): Primary: Carolyn Miles MD Resident - Assisting: Jessica Vogel MD; Serena Farmer MD Preop Diagnosis: Pre-op Diagnois: * Gallbladder polyp [K82.4] Pre-op Meds (From admission, onward) Start Stop Status Route Frequency Ordered 07/13/22 0746 ceFAZolin (Ancef) 2,000 mg in 50 mL IVPB -- Sent IV PRN 07/13/22 0747 07/13/22 0750 dexmedeTOMIDine (Precedex) 80 mcg in 20 mL infusion -- Sent IV PRN 07/13/22 0808 07/13/22 0731 fentaNYL (PF) (Sublimaze) injection -- Sent IV PRN 07/13/22 0807 07/13/22 0758 HYDROmorphone HCl-NaCl 2-0.9 MG/10ML-% SOSY -- Sent IV PRN 07/13/22 0758 07/13/22 0545 lactated ringers infusion -- Dispensed IV PRE-OP CONTINUOUS 07/13/22 0539 07/13/22 0725 midazolam (Versed) injection -- Sent IV PRN 07/13/22 0807 07/13/22 0908 ondansetron (Zofran) injection -- Sent IV PRN 07/13/22 0908 07/13/22 1000 oxyCODONE (immediate release) (Roxicodone) tablet 5 mg 07/13 2158 Sent PO ONCE 07/13/22 0944 07/13/22 0731 propofol (Diprivan) injection -- Sent IV PRN 07/13/22 0807 07/13/22 0731 rocuronium (Zemuron) injection -- Sent IV PRN 07/13/22 0808 07/13/22 0931 sugammadex (Bridion) injection -- Sent IV PRN 07/13/22 0931 Post-op Diagnosis: * Gallbladder polyp [K82.4] . No Known Allergies Vitals: Patient Vitals for the past 3 hrs: BP Temp Pulse Resp SpO2 07/13/22 0945 117/65 -- 109 23 98 % 07/13/22 0940 128/77 99.1 ??F (37.3 ??C) 99 12 97 % Lines, Drains, and Airways Type Details Placement Removal Peripheral IV Date: 07/13/22; Time: 643; Orientation: Anterior, Distal, Left; Location: Wrist; Placed By: MAEGAN; Gauge: 18 Gauge; Locals: None; Tolerance: Well 07/13/22 0644 by Maria A Abreu RN ETT Date: 07/13/22; Time: 733; Placed By: Saman Orantes; Vent: mask not attempted; Induction: Standard IV, Rapid Sequence; Blade Type: Video; Blade Size: 4; Laryngoscopy View: Grade 1 (full cords); Intubation Adjuncts: Stylet, Video Laryngoscope; Tube: Endotracheal Tube; Placement: Oral; Tube Type: Cuffed- inflated; Tube Size(mm): 8 MM; Depth of Insertion: 23 CM; Measured From: teeth; Attempts: 1; Cuff Infated: Air; Cuff Vol(mL): 10 mL; Verified By: Direct visualization, Bilateral breath sounds, Chest Auscultation, CO2 Monitor 07/13/2234 by Jenifer Coto Anes Asst 07/13/2235 by Jenifer Coto Anes Asst Peripheral IV Date: 07/13/22; Time: 734; Orientation: Right; Location: Foot; Placed By: joann coto; Gauge: 20 Gauge; Locals: None; Tolerance: Well, General Anesthesia 07/13/2235 by Jenifer Coto Anes Asst Gastric Tube 07/13/22; 0745; joann coto; OGT; 18; Well, General Anesthesia; 07/13/22; 0934; [email or web address]; Per protocol 07/13/22 0745 by Jenifer Coto Anes Asst 07/13/22933 by Jenifer Coto Anes Asst Intraprocedure I/O Totals Intake lactated ringers infusion 250.00 mL ceFAZolin 2,000 mg IVPB 10.00 mL Total Intake 260 mL Output Estimated Blood Loss 25 mL Total Output 25 mL Net Net Volume 235 mL Patient Transfer Location: Endo Recovery Transport Airway: supplemental O2 and spontaneous respirations Transport Monitoring: heart rate and continuous pulse oximetry Complications: None Handoff Given? Yes Checklist or Protocol - The worrell handoff elements that must be included in the transfer of care checklist include: 1. Identification of patient. 2. Identification of responsible practitioner (PACU nurse or advanced practitioner). 3. Discussion of pertinent medical history. 4. Discussion of the surgical/procedure course (procedure, reason for surgery, procedure performed). 5. Intraoperative anesthetic management and issue/concerns. 6. Expectations/Plans for the early post-procedure period. 7. Opportunity for questions and acknowledgement of understanding of report from the receiving PACUteam. Saman Orantes STIC TRAVEL CONSULTANT documented in this encounter Plan of Treatment Not on file documented as of this encounter Procedures Procedure Name Priority Date/Time Associated Diagnosis Comments ENDOTRACHEAL TUBE NOTE Routine 07/13/2022 8:05 AM DOMESTIC TRAVEL CONSULTANT documented in this encounter Results * ETT LINE PERFORMABLE (07/13/2022 8:05 AM DOMESTIC TRAVEL CONSULTANT) Narrative Jenifer Coto Anes Asst - 07/13/2022 8:05 AM DOMESTIC TRAVEL CONSULTANT Jenifer Coto Anes Asst ? 07/13/2022 ??8:06 AM Endotracheal Tube Placement: ? Patient Location: OR. Intubation Event Date/Time: ??07/13/2022 7:34 AM Procedure: intubation ([id number]). Procedure Section: ?? Sedation: under general anesthesia. Indications for Airway Management: ??anesthesia Procedure pretreatments used? ??No Induction: standard IV and rapid sequence Patient Position: ??sniffing and supine (shoulder roll) Mask Ventilation: not attempted. Blade Type: Video Blade Size: 4 Laryngoscopy View: grade 1 (full cords) Intubation Adjuncts: stylet and video laryngoscope Tube: endotracheal tube Placement: oral Tube type: cuff - inflated Tube Size (MM): 8 Depth of Insertion (CM): 23 Measured From: teeth Cuff volume (mL): ??10 Cuff Inflated With: air Number of Attempts: 1. Placement Verified By: direct visualization, bilateral breath sounds, chest auscultation and CO2 monitor CXR Findings: ETT in proper place. Tube secured with: ??adhesive tape. Dentition unchanged? ??Yes Difficult Airway? ??No. Procedure Start Time: 07/13/2022 7:34 AM. Procedure End Time: 07/13/2022 7:34 AM. Procedure Total Time: 0 ??minutes. Staff Section ? Anesthesia Provider: Jenifer Coto Anes Asst, Performed the procedure Ramin Cuello MD GENERAL ANESTHESIA O RDERABLES documented in this encounter Visit Diagnoses Not on filedocumented in this encounter Administered Medications Inactive Administered Medications - up to 3 most recent administrations Medication Order MAR Action Action Date Dose Rate Site ceFAZolin (Ancef) 2,000 mg in 50 mL IVPB Intravenous, PRN, Starting on Tue07/13/22 at 0746, Until Tue07/13/22 at 0948, Anesthesia Intra-op $ Given 07/13/2022 7:46 AM DOMESTIC TRAVEL CONSULTANT 3 g dexmedeTOMIDine (Precedex) 80 mcg in 20 mL infusion Intravenous, PRN, Starting on Tue07/13/22 at 0750, Until Tue07/13/22 at 0948, Anesthesia Intra-op $ Given 07/13/2022 9:04 AM DOMESTIC TRAVEL CONSULTANT 4 mcg $ Given 07/13/2022 8:31 AM DOMESTIC TRAVEL CONSULTANT 8 mcg $ Given 07/13/2022 7:50 AM DOMESTIC TRAVEL CONSULTANT 8 mcg fentaNYL (PF) (Sublimaze) injection Intravenous, PRN, Starting on Tue07/13/22 at 0731, Until Tue07/13/22 at 0948, Anesthesia Intra-op $ Given 07/13/2022 7:31 AM DOMESTIC TRAVEL CONSULTANT 100 mcg HYDROmorphone HCl-NaCl 2-0.9 MG/10ML-% SOSY Intravenous, PRN, Starting on Tue07/13/22 at 0758, Until Tue07/13/22 at 0948, Anesthesia Intra-op $ Given 07/13/2022 7:58 AM DOMESTIC TRAVEL CONSULTANT 0.5 mg $ Given 07/13/2022 7:49 AM DOMESTIC TRAVEL CONSULTANT 0.5 mg lactated ringers infusion at 20 mL/hr, Intravenous, PRE-OP CONTINUOUS, Starting on Tue07/13/22 at 0545, Until Tue07/13/22 at 1227, Pre-op Restarted 07/13/2022 7:24 AM DOMESTIC TRAVEL CONSULTANT $ New Bag/Syringe 07/13/2022 6:58 AM DOMESTIC TRAVEL CONSULTANT 20 mL/ hr midazolam (Versed) injection Intravenous, PRN, Starting on Tue07/13/22 at 0725, Until Tue07/13/22 at 0948, Anesthesia Intra-op $ Given 07/13/2022 7:25 AM DOMESTIC TRAVEL CONSULTANT 2 mg ondansetron (Zofran) injection Intravenous, PRN, Starting on Tue07/13/22 at 0908, Until Tue07/13/22 at 0948, Anesthesia Intra-op $ Given 07/13/2022 9:08 AM DOMESTIC TRAVEL CONSULTANT 4 mg propofol (Diprivan) injection Intravenous, PRN, Starting on Tue07/13/22 at 0731, Until Tue07/13/22 at 0948, Anesthesia Intra-op $ Given 07/13/2022 9:29 AM DOMESTIC TRAVEL CONSULTANT 50 mg $ Given 07/13/2022 7:31 AM DOMESTIC TRAVEL CONSULTANT 200 mg rocuronium (Zemuron) injection Intravenous, PRN, Starting on Tue07/13/22 at 0731, Until Tue07/13/22 at 0948, Anesthesia Intra-op $ Given 07/13/2022 9:02 AM DOMESTIC TRAVEL CONSULTANT 20 mg $ Given 07/13/2022 8:16 AM DOMESTIC TRAVEL CONSULTANT 20 mg $ Given 07/13/2022 7:31 AM DOMESTIC TRAVEL CONSULTANT 80 mg sugammadex (Bridion) injection Intravenous, PRN, Starting on Tue07/13/22 at 0931, Until Tue07/13/22 at 0948, Anesthesia Intra-op $ Given 07/13/2022 9:31 AM DOMESTIC TRAVEL CONSULTANT 250 mg documented in this encounter Care Teams Mobile Game Engineer Relationship Specialty Start Date End Date Pankaj Rosenberg MD [id number] [address] PCP - General 10/06/21 documented as of this encounter
--- OUTSIDE RECORDS SUMMARY | 2024-05-13 10:42 | XMS_ITS | Encounter Summary ---
Author Organization [facility] Address [address] [facility] [address] Care Team Providers Care Machine Folder Name Role Phone Pankaj Rosenberg MD Primary Care Provider [phone] Reason for Visit * Auth/Cert (Routine) Specialty Diagnoses / Procedures Referred By Horacio espinoza Referred To Contact Diagnoses Gallbladder polyp Gallbladder polyp Procedures LAPAROSCOPIC CHOLECYSTECTOMY Referral ID Status Reason Start Date Expiration Date Visits Re quested Visits Authorized [id number] 1 1 Encounter Details Date Type Department Care Team (Late st Contact Info) Description 07/13/2022 7:30 AM CHILD WELFARE SPECIALIST - 07/13/2022 9:52 AM CHILD WELFARE SPECIALIST Surgery [facility] [address] [place] [phone] Carolyn Miles MD [address] [place] [address] LAPAROSCOPIC CHOLECYSTECTOMY Surgery Details Date/Time Status Location OR Service Patient Class Case Class Case Type Trauma Case? 07/13/2022 7:30 AM Posted [facility] OR OR 14 General Surgery Day Care Elective > 5 days Panel 1 Procedure LRB Anes Op Region Wound Class Comments LAPAROSCOPIC CHOLECYSTECTOMY N/A General Abdomen C lean Contaminated Surgeon Surgeon Role Service Panel Carolyn Miles MD Primary General 1 Jessica Vogel MD Resident - Assisting General 1 Serena Farmer MD Resident - Assisting General 1 Special Needs SUPINE 2/20am documented in this encounter Social History Tobacco Use Types Packs/Day Years Used Date Smoking Tobacco: Never Smokeless Tobacco: Former Chew Quit: 09/15/2020 Tobacco Cessation:Counseling Given: Not Answered Alcohol Use Standard Drinks/Week Comments Yes 0 [...] on file documented as of this encounter Last Filed Vital Signs Vital Sign Reading Time Taken Comments Blood Pressure 114/80 07/13/2022 9:50 AM CHILD WELFARE SPECIALIST Pulse 98 07/13/2022 9:50 AM CHILD WELFARE SPECIALIST Temperature 37.3 ??C (99.1 ??F) 07/13/2022 9:40 AM CS T Respiratory Rate 20 07/13/2022 9:50 AM CHILD WELFARE SPECIALIST Oxygen Saturation 99% 07/13/2022 9:50 AM CHILD WELFARE SPECIALIST Inhaled Oxygen Concentration - - Weight 121.2 kg (267 lb 4.8 oz) 07/13/2022 6:01 AM CHILD WELFARE SPECIALIST Height 180.3 cm (5' 11 ) 07/13/2022 6:01 AM CHILD WELFARE SPECIALIST Body Mass Index 37.28 07/13/2022 6:01 AM CHILD WELFARE SPECIALIST documented in this encounter Functional Status Functional Status Response Date of Assess ment Is person deaf or have serious hearing difficult y? No 07/13/2022 Is person blind or have serious difficulty seein g? No 07/13/2022 Does person have serious dif ficulty walking/climbing stairs? No 07/13/2022 Does person have difficulty dressing/bathing? No 07/13/2022 Does person have difficulty doing errands alone? No 07/13/2022 Cognitive Status Response Date of Assessm ent Does person have difficulty concentrating/remembering/making decisions? No 07/13/2022 documented as of this encounter Medications at Time of Discharge Medication Sig Dispensed Refills Start Date End Date amLODIPine (NORVASC) 10 MG tablet Take 1 (one) tablet by mouth once daily 09/09/2021 ketoconazole (Nizoral) 2 % shampoo Apply to affected area Two times a week 06/17/2022 montelukast (SINGULAIR) 10 MG tablet Take 1 (one) tablet by mouth at bedtime 09/10/2021 omeprazole (PriLOSEC) 40 MG capsule Take 1 (one) capsule by mouth once daily as needed 06/15/2022 pravastatin (PRAVACHOL) 40 MG tablet Take 1 (one) tablet by mouth every evening 04/29/2021 SALINE NASAL SPRAY NA SITagliptin (JANUVIA) 25 MG tablet Take 1 (one) tablet by mouth once daily 08/21/2021 acetaminophen (Tylenol) 325 MG tablet Take 2 (two) tablets by mouth every 4 hours as needed for Fever or Pain Maximum allowable Acetaminophen amount = 4 Grams (4000 mg) / 24 hours. 30 tablet 07/13/2022 10/08/2022 Lancets (ONETOUCH DELICA PLUS 33G EXTRA FINE LANCET) USE 1 LANCET TO PRICK FINGER TWICE DAILY BEFORE TESTING 100 Each 09/16/2021 10/08/2022 lisinopril (PRINIVIL; ZESTRIL) 40 MG tablet Take 1 (one) tablet by mouth once daily 08/21/2021 07/28/2022 oxyCODONE, immediate release, (Roxicodone) 5 MG tabletIndications:Ga llbladder polyp Take 1 (one) tablet by mouth every 6 hours as needed for Pain 10 tablet 07/13/2022 10/08/2022 senna-docusate (Senokot-S) 8.6-50 MG tablet Take 1 (one) tablet by mouth 2 times daily as needed for Constipation 07/13/2022 07/29/19 23 documented as of this encounter H&P Notes * Gulshan Owusu DO - 07/13/2022 6:06 AM CST Images from the original note were not included. 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 - Admit to pre-op holding - Proceed with procedure: laparoscopic cholecystectomy, possible open - Risks and benefits of procedure, complications and expected course discussed with patient/family.Consent in chart. - Blood consent in chart - Pre-operative antibiotics - NPO since 0000 - OK for OR with Dr. Miles SUBJECTIVE Procedure: Laparoscopic cholecystectomy, possible open History of Present Illness: Patient is a 27 year old male hx of gastroschisis, small bowel obstruction (s/p laparotomy small bowel resection). Who presents for discussion cholecystectomy in the setting of gallbladder polyps. Hestates these have been followed for some time, but have recently gotten larger. His previous imaging from 01/03 showed a 0.6cm polyp, and repeat us 09/04 showed a 7.8 x 6.3x 8.4 mm polyp, with a second non-mobile foci. There was not any findings of cholecystitis on last imaging. On presentation today, patient has had no changes to his past medical history and denies any fevers, chills, nausea, or vomiting. He was NPO at midnight. Past Medical History: Past Medical History: Diagnosis Date ??? Arthrogryposis 06/15/2021 ??? Controlled type 2 diabetes mellitus without complication, without long-term current use of insulin ([facility]) 06/16/2021 last A1C 5.6 1 month ago ??? Essential hypertension controlled with medication ??? GERD (gastroesophageal reflux disease) controlled with medication ??? 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 KARRIE (obstructive sleep apnea) 09/12/2021 PCP: Pankaj Rosenberg MD Past Surgical History: Past Surgical History: Procedure Laterality Date ??? Laparotomy N/A 09/17/2021 N/A; LAPAROTOMY EXPLORATORY, BOWEL RESECTION, ENTROLYSIS ??? Small Bowel Resection Family History: No family history on file. Social History: Social History Tobacco Use ??? Smoking status: Never ??? Smokeless tobacco: Former Types: Chew Quit date: 09/15/2020 Substance Use Topics ??? Alcohol use: Yes Comment: occ Allergies: No Known Allergies Medications: Medications Prior to Admission Medication Sig Dispense Refill ??? amLODIPine (NORVASC) 10 MG tablet Take 1 (one) tablet by mouth once daily ??? ketoconazole (Nizoral) 2 % shampoo Apply to affected area Two times a week ??? Lancets (ONETOUCH DELICA PLUS 33G EXTRA FINE LANCET) USE 1 LANCET TO PRICK FINGER TWICE DAILY BEFORE TESTING 100 Each PRN ??? lisinopril (PRINIVIL; ZESTRIL) 40 MG tablet Take 1 (one) tablet by mouth once daily ??? montelukast (SINGULAIR) 10 MG tablet Take 1 (one) tablet by mouth at bedtime ??? omeprazole (PriLOSEC) 40 MG capsule Take 1 (one) capsule by mouth once daily as needed ??? pravastatin (PRAVACHOL) 40 MG tablet Take 1 tablet by mouth every evening (Patient not taking: Reported on 06/17/2022) ??? SALINE NASAL SPRAY NA ??? SITagliptin (JANUVIA) 25 MG tablet Take 1 (one) tablet by mouth once daily Review of Systems: positives are in bold; Constitutional: fevers, chills, sweats, fatigue, weight loss/gain, chronic pain HEENT: head trauma, vision/hearing/voice changes, eye/ear/throat pain, nasal discharge, dysphagia, sores, ulcers, sinus pain Respiratory: cough, hemoptysis, sputum, KASPER, dyspnea at rest, PND, wheezing Cardiovascular: chest pain/discomfort, palpitations, lower extremity edema, calf/leg pain Gastrointestinal: nausea/vomiting, diarrhea, constipation, melena, abdominal pain Genitourinary: dysuria, urgency, frequency, incontinence, hematuria Integument: rash, ulcers, itching Hematologic/lymphatic: easy bruising, bleeding, petechiae Musculoskeletal: myalgias, arthralgias Neurological: headaches, dizziness, numbness, tingling, seizures Behavioral/Psych: anxiety, depression, memory problems Endocrine: polyuria, polydipsia, polyphagia, heat/cold intolerance OBJECTIVE Vitals: 07/13/22 0601 Weight: 121.2 kg (267 lb 4.8 oz) Height: 1.803 m (5' 11 ) No data recorded. No data recorded. No data recorded. Estimated body mass index is 37.28 kg/m?? as calculated from the following: Height as of this encounter: 1.803 m (5' 11 ). Weight as of this encounter: 121.2 kg (267 lb 4.8 oz). PREVIOUS WEIGHTS: Wt Readings from Last 5 Encounters: 07/13/22 121.2 kg (267 lb 4.8 oz) 06/29/22 122.7 kg (270 lb 8 oz) 06/17/22 122.5 kg (270 lb) 03/17/22 117.9 kg (260 lb) 10/07/21 110.7 kg (244 lb) Physical Examination: Physical Exam General: Alert, NAD, AAOx4. HEENT: NCAT, PERRL, No Scleral Injection Neck: Trachea Midline, No JVD, Supple, no LAD Chest: No increase of respiratory effort, CTAB Cardiovascular: RRR, no murmurs, no lower extremity edema Abdomen: soft, NTND, well-healed midline incision Skin: No rashes or ulcers noted Neurological: CN II-XII grossly intact. No focal deficits Data Review: Labs: Recent Labs Component Name 06/29/22 1504 WBC 9.6 HCT 41.7 HGB 13.5 PLTCOUNT 359 Recent Labs Component Name 06/29/22 1504 NA 139 POTASSIUM 4.0 CL 105 CO2 23 BUN 11 CREATININE 0.63* Recent Labs Component Name 03/21/22 0606 03/18/22 0419 03/17/22 0341 ALT - - 40 AST - - 17 ALKPHOS - - 113 TBILI - - 1.0 ALB 3.6 - 4.1 - = values in this interval not displayed. No results for input(s): INR, PTT in the last 07566 hours. Radiology Impressions: U/S 08/18/2021- found in media tabs Impression: 1. 2nonmobile hyperechoic foci attached to the gallbladder wall. Most likely polyps. The largest measures 7.8x6.3x8.4mm, and located closer to the fundus. No shadowing gallbladder calculi. No gallbladder wall thickening or pericholecystic fluid. 2. Mild fatty infiltration of the liver without focal mass. Hepatic and portal veins are patent. Common bile duct measure 4.4mm 3. Right kidney measures 10.9x5.4x5.9cm. No focal mass or hydronephrosis. 4. Partially visualized pancreas without gross abnormality ? Gulshan Owusu, PGY-1 General Surgery 07/12/2022 6:06 AM D WELFARE SPECIALIST Associated attestation - Carolyn Miles MD - 07/13/2022 7:07 AM CHILD WELFARE SPECIALIST I have seen and examined the patient with the resident and I agree with the findings and plan of care as documented by the resident. Date of Service: 07/13/22 Plan for lap vs open cholecystectomy Risks and benefits again discussed. Questions answered Carolyn Miles MD documented in this encounter OR Notes * Brief Op Note - Serena Farmer MD - 07/13/2022 7:53 AM CST Brief Op Note Procedure: LAPAROSCOPIC CHOLECYSTECTOMY Patient Name: Chuck Barlow Date of Service: 07/13/2022 Pre-Op Diagnosis: Gallbladder polyp Post-Op Diagnosis: Same Surgeon(s) and Role: * Carolyn Miles MD - Primary * Serena Farmer MD - Resident - Assisting * Jessica Vogel MD - Resident - Assisting Composite Mechanic(s): Dylan [email or web address] Anesthesia Type: general ETT Complications: none Findings: Small gallbladder, no inflammation, no cystic artery identified EBL: minimal blood loss Urine Output : None IV Fluid Intake: per anesthesia Drains: None Specimen(s): ID Type Source Tests Collected by Time Destination A : GALLBLADDER Resection without Tumor [place]bl[place] [id number] Implant(s): None Serena Farmer MD D WELFARE SPECIALIST * Operative - Carolyn Miles MD - 07/13/2022 7:53 AM CST Operative Report Patient Name: Chuck Barlow DATE OF PROCEDURE: 07/13/22 ? Surgeons and Role: Attending: Carolyn Miles MD Resident: Jessica Vogel MD, Ronda Farmer MD? Anesthesia: General endotracheal anesthesia ? Preoperative Diagnosis:?? Gallbladder polyps ? Postoperative Diagnosis:?? Same ? Procedure:?? 1. Laparoscopic cholecystectomy ? Brief findings: 1. Single cystic duct, diminutive cystic artery ? Lines/Tubes: PIV ? Disposition:?? PACU? Status:?? Stable ? EBL:? 5??cc ? Complications: None apparent ? Specimen(s): Gallbladder ?? INDICATIONS FOR PROCEDURE: Chuck Barlow is a 27 year old male who presents with hx of gallbladder polyps recently getting largeron last ultrasound. We discussed continued surveillance vs cholecystectomy- he would like to proceed with cholecystectomy Due to the nature of the diagnosis a discussion of operative and non-operative treatment options, as well as the risks and benefits, was held with the patient and patient's family. After discussing the options, risks, and benefits, the patient and patient's family elected to undergo operative intervention. Informed consent was obtained and we proceeded to the operating room for treatment. DETAILED SURGICAL PROCEDURE: The patient brought to the operating room. His identity was confirmed by the operating room staff. After the patient's identity was confirmed the patient was anesthetized. The patient was then positioned on the surgical table in the supine position with a footboard. The patient was then prepped with chlorhexadine in standard sterile fashion. Following completion of surgical site preparation, the patient was draped in standard sterile fashion. A time out was then called to again confirm and identify the patient, position, surgical site and side, procedure, pre-op antibiotic, allergies, and that all necessary equipment was in the room. The abdomen was entered using a veress needle at houser's point and once insufflation was achieved a visiport was used at the same spot. On entrance there was no injury noted. There were dense adhesions of small bowel to the anterior abdominal wall. We were able to stay way from this for our port pl acement. A 5mm port was placed in the midline at the superior portion of his upper midline scar. 2 other 5mm ports were placed along the right subcostal margin. A 10mm port was placed in the epigastrium. The gallbladder was grasped and retracted cephalad. The infundibulum and cystic duct were identified using blunt dissection and eletrocautery. The cystic plate was cleared more than fci up the gallbladder. There was a single very diminutive vessel that did not appear to be the cystic artery- but there were no other vessels found when the cystic plate was cleared. On clearing the cystic duct it was inadvertently entered and bile was spilled. This was suctioned free. The duct was then theonly thing running into the gallbladder and this was clipped and transected. The gallbladder was then removed off the bed and put into an endocatch bag. The cystic plate was evaluated and hemostasis was achieved. The gallbladder was placed in an endocatch bag and removed through the epigastric portsite. The epigastric port site fascia was closed with 0 vicryl. Skin was closed with 4-0 monocryl and skin glue. The patient tolerated the procedure well, was extubated and taken to PACU. Carolyn Miles MD 07/13/2022 9:08 AM D WELFARE SPECIALIST documented in this encounter Miscellaneous Notes * Clinical References AVS - Mounika Luke RN - 07/13/2022 10:54 AM CHILD WELFARE SPECIALIST [id number] Discharge Instructions for Laparoscopic Gallbladder Removal Surgery (Cholecystectomy) You had surgery to remove your gallbladder. This is called a cholecystectomy. You had the surgery done with laparoscopy. This means it was done with several small incisions. People who have the surgery done this way often recover more quickly. They may have less pain than with open gallbladder surgery. You can live a full and healthy life without your gallbladder. This includes eating the foods and doing the things you enjoyed before. Below are guidelines for home care after surgery. Home care To care for yourself at home: ?? Get plenty of rest. Don?t worry if you feel tired for the first couple of weeks after your surgery. Fatigue is common. Nap when you feel tired. ?? Wash the skin around your cut (incision) daily with mild soap and water. It's OK to shower the day after your surgery unless your healthcare provider says not to. ?? Eat your normal diet. But don't eat rich, greasy, or spicy food for a few days. Many surgeons advise a low-fat diet for the first month after surgery. Don?t eat fried food during this time. ?? You can walk around the house, do office work, climb stairs, or ride in a car if you feel able to do so. ?? Ask someone to drive you to your appointments for the next [address] until you have stopped taking pain medicine. Make sure you can step on the brake pedal with no delay. ?? Eat more fiber and use a stool softener if you are constipated. Pain medicine can cause constipation. Talk with your provider if you need more help. ?? Don?t sit in a bathtub, swimming pool, or hot tub until your healthcare provider says it?s safe.Wait until the incision is closed. Wait until any surgical tubes (drains) are removed. Follow-up care Make a follow-up appointment with your surgeon as advised. Call your healthcare provider if these symptoms don?t go away within 1 week after your surgery: ?? Extreme tiredness (fatigue) ?? Pain around the incision ?? Diarrhea or constipation ?? Loss of appetite When to call your healthcare provider Call your healthcare provider right away if you have any of these: ?? Yellowing of your eyes or skin (jaundice) ?? Chills ?? Fever of 100.4??F (38.0??C) or higher, or as directed by your provider ?? Redness or swelling of the incision ?? Fluid leaking or a bad smell from the incision ?? Incision pain that gets worse ?? Dark or rust-colored urine ?? Stool that is light in color instead of brown ?? Increasing belly pain ?? Rectal bleeding ?? Trouble breathing or shortness of breath ?? Leg swelling Last Reviewed Date: 2021 ?? [id number] [employer]. All rights reserved. This information is not intended as a substitute for professional medical care. Always follow your healthcare professional's instructions. D WELFARE SPECIALIST documented in this encounter Plan of Treatment Not on file documented as of this encounter Procedures Procedure Name Priority Date/Time Associated Diagnosis Comments GLUCOSE - POINT OF CARE Routine 07/13/2022 9:54 AM CHILD WELFARE SPECIALIST PATHOLOGY TISSUE Routine 07/13/2022 9:02 AM CHILD WELFARE SPECIALIST Gallbladder polyp [place] LAP,CHOLECYSTECTO MY 07/13/2022 7:53 AM CHILD WELFARE SPECIALIST Gallbladder polyp Special Needs SUPINE 2/20am TYPE + SCREEN PANEL ISAAC 07/13/2022 6:35 AM CHILD WELFARE SPECIALIST Pre-op exam GLUCOSE - POINT OF CARE Routine 07/13/2022 6:16 AM CHILD WELFARE SPECIALIST documented in this encounter Results * (ABNORMAL) GLUCOSE - POINT OF CARE (07/13/2022 9:54 AM CHILD WELFARE SPECIALIST) Glucose WB/POC 154(H) 70 - 115 mg/dL 07/13/2022 10:00 AM CHILD WELFARE SPECIALIST [facility] Specimen Type Cap Fingerstick 2022 10:00 AM CHILD WELFARE SPECIALIST [facility] Blood BLOOD SPECIMEN / Unknown 07/13/2022 9:54 AM CHILD WELFARE SPECIALIST 07/13/2022 10:00 AM CHILD WELFARE SPECIALIST Carolyn Miles MD LAB - POINT OF CARE ORDERABLES Performing Organization Address [facility]/State/[facility] Co de Phone Number [facility] [address] [place] [phone], [facility] [phone] * PATHOLOGY TISSUE (07/13/2022 9:02 AM CHILD WELFARE SPECIALIST) Case Report Surgical Pathology Report ? Case: [id number] ? Authorizing Provider: ??Carolyn Miles MD ? Collected: ? 07/13/2022 09:02 AM ? Ordering Location: ? [facility] ?Received: ?07/13/2022 10:25 AM ? Pathologist: ? Gene Guardado MD ? Specimen: ?Gallbladder, GALLBLADDER ? 07/16/2022 1:33 PM [facility] Final Diagnosis Gallbladder, cholecystectomy (A): - Mild chronic cholecystitis 07/16/2022 1:33 PM [facility] Microscopic Description and Comment Microscopic examination substantiates the final diagnosis. No polyp identified grossly. 07/16/2022 1:33 PM [facility] Clinical History The patient is is a 27 year old male who presents with hx of gallbladder polyps recently getting larger on last ultrasound. The patient underwent cholecystectomy 07/16/2022 1:33 PM [facility] Gross Description Requisition and specimen are labeled with the patient's name,Chuck Barlow. Received in formalin, specimen A is an intact gallbladder 4.5 cm length by 2.5 cm diameter. The serosa is sutherland-purple. The open cystic duct measures 0.4 x 0.4 cm. Opened to show sutherland-brown velvety mucosa with a mild erosion.No stones or lesions are identified. The wall thickness is up to 0.2 cm. Market Researcher section is submitted in cassette A1-A2. /MA Additional sections are submitted in cassettes A3. /ME 07/16/2022 1:33 PM [facility] Disclaimer The performance characteristics of all immunohistochemical and indirect immunofluorescence stains (if any) cited in this report were determined by the Histopathology Laboratory of [facility]. Some of these tests were developed by our own laboratory and have not been cleared or approved by the US Food and Drug Administration. The FDA does not require this test to go through premarket FDA review. These tests are used for clinical purposes. They should not be regarded as investigational or for research. This laboratory is certified under the Clinical Laboratory Improvement Amendments (CLIA) as qualified to perform high complexity clinical laboratory testing. This case has been personally reviewed and interpreted by the attending (teaching) pathologist. 07/16/2022 1:33 PM CHILD WELFARE SPECIALIST [facility] Embedded Images 07/16/2022 1:33 PM [facility] Resection without Tumor ENTIRE GALLBLADDER / Unknown 07/13/2022 9:02 AM CHILD WELFARE SPECIALIST 07/13/2022 10:25 AM CHILD WELFARE SPECIALIST Comment:Pre-op diagnosis: Gallbladder polyp Carolyn Miles MD LAB - PATHOLOGY/CYTO LOGY ORDERABLES Performing Organization Address City/[facility]/ZIP Co de Phone Number [facility] [address] [place] [address], [facility] [phone] * TYPE + SCREEN PANEL (07/13/2022 6:35 AM CHILD WELFARE SPECIALIST) Antibody Screen NEG 7:27 AM [facility] ABO Rh O POS 07/13/2022 7:27 AM [facility] Blood Bank BLOOD SPECIMEN / Unknown Venipuncture / Unknown 07/13/2022 6:35 AM CHILD WELFARE SPECIALIST 07/13/2022 6:47 AM CHILD WELFARE SPECIALIST Marla Richard PRODUCT SAFETY TESTER-LIGHTING ENGINEERING TECHNICIAN LAB - BLOOD BANK ORDERABLES Performing Organization Address [facility]/ZIP Co de Phone Number [facility] [address] [phone], [facility] [phone] * (ABNORMAL) GLUCOSE - POINT OF CARE (07/13/2022 6:16 AM CHILD WELFARE SPECIALIST) Glucose WB/POC 139(H) 70 - 115 mg/dL 07/13/2022 6:20 AM CHILD WELFARE SPECIALIST [facility] Specimen Type Venous 07/13/2022 6:20 AM CHILD WELFARE SPECIALIST [facility] Blood BLOOD SPECIMEN / Unknown 07/13/2022 6:16 AM CHILD WELFARE SPECIALIST 07/13/2022 6:20 AM CHILD WELFARE SPECIALIST Carolyn Miles MD LAB - POINT OF CARE ORDERABLES [facility] [address] [place] [phone], [facility] [phone] documented in this encounter Visit Diagnoses Diagnosis Pre-op exam- Primary Preoperative examination, unspecified Gallbladder polyp Cholesterolosis of gallbladder Gallbladder polyp Cholesterolosis of gallbladder documented in this encounter Administered Medications Inactive Administered Medications - up to 3 most recent administrations Medication Order MAR Action Action Date Dose Rate Site acetaminophen (Tylenol) tablet 650 mg 650 mg, Oral, ONCE PRN, pain, 1 dose, Starting on Tue07/13/22 at 0955, Until Tue07/13/22 at 1227, For pain, if not given in last 6 hours. Patient preference for lesser PRN pain meds may be honored when the patient requests a less strong medication, a lower dose, or a less intrusive route of administration when the lesser drug, dose and route have been ordered for the patient. This patient request must be documented in the MAR., PACU BUPivacaine PF (Marcaine PF) 0.25 % injection PRN, Starting on Tue07/13/22 at 0838, Until Tue07/13/22 at 0944, Intra-op $ Given 07/13/2022 8:38 AM CHILD WELFARE SPECIALIST 10.5 mL dexAMETHasone (Decadron) injection 4 mg 4 mg, Intravenous, ONCE PRN, Nausea/Vomiting, 1 dose, Starting on Tue07/13/22 at 0955, Until Tue07/13/22 at 1227, Third choice, use if first and second choice was ineffective., PACU EPINEPHrine 1 MG/ML injection PRN, Starting on Tue07/13/22 at 0839, Until Tue07/13/22 at 0944, Intra-op $ Given 07/13/2022 8:39 AM CHILD WELFARE SPECIALIST 0.105 mcg fentaNYL (PF) (Sublimaze) injection 25 mcg 25 mcg, Intravenous, EVERY 10 MIN PRN, Mild Pain, 4 doses, Starting on Tue07/13/22 at 0955, Until Tue07/13/22 at 1227, Maximum total of 4 doses. If patient reaches max total dose, please consult anesthesiologist prior to further administration of pain meds. Hold pain meds if there are signs of hypoventilation. Patient preference for lesser PRN pain meds may be honored when the patient requests a less strong medication, a lower dose, or a less intrusive route of administration when the lesser drug, dose and route have been ordered for the patient. This patient request must be documented in the MAR., PACU $ Given 07/13/2022 10:15 AM CHILD WELFARE SPECIALIST 25 mcg $ Given 07/13/2022 10:00 AM CHILD WELFARE SPECIALIST 25 mcg fentaNYL (PF) (Sublimaze) injection 50 mcg 50 mcg, Intravenous, EVERY 10 MIN PRN, Moderate Pain, 4 doses, Starting on Tue07/13/22 at 0955, Until Tue07/13/22 at 1227, Maximum total of 4 doses. If patient reaches max total dose, please consult anesthesiologist prior to further administration of pain meds. Hold pain meds if there are signs of hypoventilation. Patient preference for lesser PRN pain meds may be honored when the patient requests a less strong medication, a lower dose, or a less intrusive route of administration when the lesser drug, dose and route have been ordered for the patient. This patient request must be documented in the MAR., PACU HYDROmorphone (Dilaudid) injection 0.5 mg 0.5 mg, Intravenous, EVERY 10 MIN PRN, Severe Pain, 4 doses, Starting on Tue07/13/22 at 0955, Until Tue07/13/22 at 1227, Maximum total of 4 doses If patient reaches max total dose, please consult anesthesiologist prior to further administration of pain meds. Hold pain meds if there are signs of hypoventilation. Patient preference for lesser PRN pain meds may be honored when the patient requests a less strong medication, a lower dose, or a less intrusive route of administration when the lesser drug, dose and route have been ordered for the patient. This patient request must be documented in the MAR., PACU lactated ringers infusion at 20 mL/hr, Intravenous, PRE-OP CONTINUOUS, Starting on Tue07/13/22 at 0545, Until Tue07/13/22 at 1227, Pre-op Restarted 07/13/2022 7:24 AM CHILD WELFARE SPECIALIST $ New Bag/Syringe 07/13/2022 6:58 AM CHILD WELFARE SPECIALIST 20 mL/ hr lidocaine PF (Xylocaine MPF) 1 % injection PRN, Starting on Tue07/13/22 at 0839, Until Tue07/13/22 at 0944, Intra-op $ Given 07/13/2022 8:39 AM CHILD WELFARE SPECIALIST 10.5 mL naloxone (Narcan) injection 0.04 mg 0.04 mg, Intravenous, POST-OP MULTIPLE, Starting on Tue07/13/22 at 0955, Until Tue07/13/22 at 1227, If respirations are less than 8 per minute and O2 sat is less than 90%, bag/mask patient and notify anesthesia immediately. If directed to administer naloxone, dilute 0.4mg in 9mL normal saline for dilution of 0.04mg/mL. Administer 1mL over 30 seconds while observing the patient response and titrating to effect. If no response, continue IV naloxone at the same rate up to a total of 0.8 mg of diluted naloxone., PACU ondansetron (Zofran) injection 4 mg 4 mg, Intravenous, ONCE PRN, Nausea/Vomiting, 1 dose, Starting on Tue07/13/22 at 0955, Until Tue07/13/22 at 1227, Second choice, use if first choice was ineffective., PACU oxyCODONE (immediate release) (Roxicodone) tablet 5 mg 5 mg, Oral, ONCE, 1 dose, On Tue07/13/22 at 1000, Patient preference for lesser PRN pain meds may be honored when the patient requests a less strong medication, a lower dose, or a less intrusive route of administration when the lesser drug, dose and route have been ordered for the patient. This patient request must be documented in the MAR. $ Given 07/13/2022 10:46 AM CHILD WELFARE SPECIALIST 5 mg prochlorperazine (Compazine) injection 10 mg 10 mg, Intravenous, ONCE PRN, Nausea/Vomiting, 1 dose, Starting on Tue07/13/22 at 0955, Until Tue07/13/22 at 1227, First choice, PACU throat lozenge 1 lozenge 1 lozenge, Oral, EVERY 1 HOUR PRN, Sore Throat, Starting on Tue07/13/22 at 0955, Until Tue07/13/22 at 1227, PACU documented in this encounter Active and Recently Administered Medications Times are shown in CHILD WELFARE SPECIALIST. Scheduled Medication Order 07/11/2022 07/12/2022 07/13/2022 naloxone (Narcan) injection 0.04 mg 0.04 mg, Intravenous, POST-OP MULTIPLE, Starting on Tue07/13/22 at 0955, Until Tue07/13/22 at 1227, If respirations are less than 8 per minute and O2 sat is less than 90%, bag/mask patient and notify anesthesia immediately. If directed to administer naloxone, dilute 0.4mg in 9mL normal saline for dilution of 0.04mg/mL. Administer 1mL over 30 seconds while observing the patient response and titrating to effect. If no response, continue IV naloxone at the same rate up to a total of 0.8 mg of diluted naloxone., PACU oxyCODONE (immediate release) (Roxicodone) tablet 5 mg (COMPLETED) 5 mg, Oral, ONCE, 1 dose, On Tue07/13/22 at 1000, Patient preference for lesser PRN pain meds may be honored when the patient requests a less strong medication, a lower dose, or a less intrusive route of administration when the lesser drug, dose and route have been ordered for the patient. This patient request must be documented in the MAR. 1046 ($ Given - Prov ider: Mounika Luke RN) Continuous Medication Order 07/11/2022 07/12/2022 07/13/2022 lactated ringers infusion at 20 mL/hr, Intravenous, PRE-OP CONTINUOUS, Starting on Tue07/13/22 at 0545, Until Tue07/13/22 at 1227, Pre-op 0658 ($ New Bag/Syri nge - Provider: Maria A Abreu RN)0723 (Paused - Provider: Saman Orantes - Comment: Switch to gravity)0724 (Restarted - Provider: Saman Orantes Assalexis)0932 (Anesthesia Volume Adjustment - Provider: Saman Orantes) PRN Medication Order 07/11/2022 07/12/2022 07/13/2022 acetaminophen (Tylenol) tablet 650 mg 650 mg, Oral, ONCE PRN, pain, 1 dose, Starting on Tue07/13/22 at 0955, Until Tue07/13/22 at 1227, For pain, if not given in last 6 hours. Patient preference for lesser PRN pain meds may be honored when the patient requests a less strong medication, a lower dose, or a less intrusive route of administration when the lesser drug, dose and route have been ordered for the patient. This patient request must be documented in the MAR., PACU BUPivacaine PF (Marcaine PF) 0.25 % injection (CANCELED) PRN, Starting on Tue07/13/22 at 0838, Until Tue07/13/22 at 0944, Intra-op 0838 ($ Given - Prov ider: Carolyn Miles MD) dexAMETHasone (Decadron) injection 4 mg 4 mg, Intravenous, ONCE PRN, Nausea/Vomiting, 1 dose, Starting on Tue07/13/22 at 0955, Until Tue07/13/22 at 1227, Third choice, use if first and second choice was ineffective., PACU EPINEPHrine 1 MG/ML injection (CANCELED) PRN, Starting on Tue07/13/22 at 0839, Until Tue07/13/22 at 0944, Intra-op 0839 ($ Given - Prov ider: Carolyn Miles MD) fentaNYL (PF) (Sublimaze) injection 25 mcg 25 mcg, Intravenous, EVERY 10 MIN PRN, Mild Pain, 4 doses, Starting on Tue07/13/22 at 0955, Until Tue07/13/22 at 1227, Maximum total of 4 doses. If patient reaches max total dose, please consult anesthesiologist prior to further administration of pain meds. Hold pain meds if there are signs of hypoventilation. Patient preference for lesser PRN pain meds may be honored when the patient requests a less strong medication, a lower dose, or a less intrusive route of administration when the lesser drug, dose and route have been ordered for the patient. This patient request must be documented in the MAR., PACU 1000 ($ Given - Prov ider: Lissa J Mikayla)1015 ($ Given - Provider: Lissa Degroot) fentaNYL (PF) (Sublimaze) injection 50 mcg 50 mcg, Intravenous, EVERY 10 MIN PRN, Moderate Pain, 4 doses, Starting on Tue07/13/22 at 0955, Until Tue07/13/22 at 1227, Maximum total of 4 doses. If patient reaches max total dose, please consult anesthesiologist prior to further administration of pain meds. Hold pain meds if there are signs of hypoventilation. Patient preference for lesser PRN pain meds may be honored when the patient requests a less strong medication, a lower dose, or a less intrusive route of administration when the lesser drug, dose and route have been ordered for the patient. This patient request must be documented in the MAR., PACU HYDROmorphone (Dilaudid) injection 0.5 mg 0.5 mg, Intravenous, EVERY 10 MIN PRN, Severe Pain, 4 doses, Starting on Tue07/13/22 at 0955, Until Tue07/13/22 at 1227, Maximum total of 4 doses If patient reaches max total dose, please consult anesthesiologist prior to further administration of pain meds. Hold pain meds if there are signs of hypoventilation. Patient preference for lesser PRN pain meds may be honored when the patient requests a less strong medication, a lower dose, or a less intrusive route of administration when the lesser drug, dose and route have been ordered for the patient. This patient request must be documented in the MAR., PACU lidocaine PF (Xylocaine MPF) 1 % injection (CANCELED) PRN, Starting on Tue07/13/22 at 0839, Until Tue07/13/22 at 0944, Intra-op 0839 ($ Given - Prov ider: Carolyn Miles MD) ondansetron (Zofran) injection 4 mg 4 mg, Intravenous, ONCE PRN, Nausea/Vomiting, 1 dose, Starting on Tue07/13/22 at 0955, Until Tue07/13/22 at 1227, Second choice, use if first choice was ineffective., PACU prochlorperazine (Compazine) injection 10 mg 10 mg, Intravenous, ONCE PRN, Nausea/Vomiting, 1 dose, Starting on Tue07/13/22 at 0955, Until Tue07/13/22 at 1227, First choice, PACU throat lozenge 1 lozenge 1 lozenge, Oral, EVERY 1 HOUR PRN, Sore Throat, Starting on Tue07/13/22 at 0955, Until Tue07/13/22 at 1227, PACU documented in this encounter Care Teams Machine Folder Relationship Specialty Start Date End Date Pankaj Rosenberg MD [address] [facility] [address] [place] [id number] PCP - General 10/06/21 documented as of this encounter
--- OUTSIDE RECORDS SUMMARY | 2024-05-13 10:42 | XMS_ITS | Encounter Summary ---
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 2-4 times a month 09/15/2021 Q2: How many drinks containi ng alcohol do you have on a typical day when you are drinking? 3 or 4 09/15/2021 Q3: How often do you have si x or more drinks on one occasion? Weekly 09/15/2021 Hunger Vital Sign Answer Date Recorded Within the past 12 months, y ou worried that your food would run out before you got the money to buy more. Never true 09/17/19 22 Within the past 12 months, t he food you bought just didn't last and you didn't have money to get more. Never true 09/16/2021 Sex and Gender Information Value Date Recorded Sex Assigned at Not on file Gender Identity Not on file Sexual Orientation Not on file documented as of this encounter Functional Status Functional Status Response Date of Assess ment Is person deaf or have serious hearing difficult y? No 09/15/2021 Is person blind or have serious difficulty seein g? No 09/15/2021 Does person have serious dif ficulty walking/climbing stairs? No 09/15/2021 Does person have difficulty dressing/bathing? No 09/15/2021 Does person have difficulty doing errands alone? No 09/15/2021 Cognitive Status Response Date of Assessm ent Does person have difficulty concentrating/remembering/making decisions? No 09/15/2021 documented as of this encounter Progress Notes * Alise Serra, OD - 02/25/2022 12:01 PM CDT HPI Chief Complaint Patient presents with ??? Retina Evaluation Pt was diagnosed with diabetes <1 year ago. Is compliant with Januvia, takes it every morning. Current A1C 5.5 (2 months ago), unknown blood sugar. Does not wear glasses, denies distance and near blur. The following was also reviewed and updated: Current Outpatient Medications Medication Sig Dispense Refill ??? Alcohol Swabs (ALCOHOL PREP) 70 % USE 1 SWAB TO CLEAN SKIN TWICE DAILY BEFORE TESTING 100 Each PRN ??? amLODIPine (NORVASC) 10 MG tablet Take 10 mg by mouth once daily ??? blood glucose (ONETOUCH VERIO) test strip USE 1 STRIP TO CHECK BLOOD SUGAR TWICE DAILY Reasons:FOR DIABETES EDUCATION 100 strip PRN ??? Blood Glucose Monitoring Suppl (ONETOUCH VERIO REFLECT) w/Device KIT Use 1 Units 2 times daily USE MACHINE TO CHECK BLOOD SUGAR TWICE DAILY 1 kit 0 ??? cetirizine (ZYRTEC) 5 MG chew tablet Take 5 mg by mouth once daily ??? cyclobenzaprine (FLEXERIL) 10 MG tablet Take 1 (one) tablet by mouth 3 times daily (Patient nottaking: Reported on 10/07/2021) 30 tablet 0 ??? HYDROcodone-acetaminophen (NORCO) 7.5-325 MG tablet Take 1 (one) tablet by mouth every 6 hours as needed for Pain (Patient not taking: Reported on 10/07/2021) 12 tablet 0 ??? Lancets (ONETOUCH DELICA PLUS 33G EXTRA FINE LANCET) USE 1 LANCET TO PRICK FINGER TWICE DAILY BEFORE TESTING 100 Each PRN ??? lidocaine (LIDODERM) 5 % patch Apply 1 (one) patch to skin every 24 hours (Patient not taking: Reported on 10/07/2021) 12 patch 0 ??? lisinopril (PRINIVIL; ZESTRIL) 40 MG tablet Take 40 mg by mouth once daily ??? loratadine (CLARITIN) 10 MG tablet Take 10 mg by mouth once daily as needed (Patient not taking: Reported on 10/07/2021) ??? montelukast (SINGULAIR) 10 MG tablet Take 10 mg by mouth at bedtime ??? omeprazole (PRILOSEC) 40 MG capsule Take 40 mg by mouth once daily ??? polyethylene glycol 3350 (MIRALAX) 17 GM/SCOOP powder Take 17 (seventeen) g by mouth once daily(Patient not taking: Reported on 10/07/2021) 238 g 0 ??? pravastatin (PRAVACHOL) 40 MG tablet Take 1 tablet by mouth every evening ??? SALINE NASAL SPRAY NA ??? SITagliptin (JANUVIA) 25 MG tablet Take 25 mg by mouth once daily ??? traMADol 100 MG TABS Take 100 mg by mouth every 8 hours (Patient not taking: Reported on 10/07/2021) 12 tablet 0 No current facility-administered medications for this visit. No Known Allergies Review of Systems Past Medical History: Diagnosis Date ??? Arthrogryposis 06/15/2021 ??? Controlled type 2 diabetes mellitus without complication, without long-term current use of insulin 06/16/2021 ??? 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 KARRIE (obstructive sleep apnea) 09/12/2021 Past Surgical History: Procedure Laterality Date ??? Laparotomy N/A 09/17/2021 N/A; LAPAROTOMY EXPLORATORY, BOWEL RESECTION, ENTROLYSIS No family history on file. Social History Tobacco Use ??? Smoking status: Never Smoker ??? Smokeless tobacco: Former User Types: Chew Quit date: 09/15/2020 Vaping Use ??? Vaping Use: Never used Substance Use Topics ??? Alcohol use: Yes Comment: occ ??? Drug use: Never Base Eye Exam Visual Acuity (Snellen - Linear) Right Left Dist cc 20/15 20/15 Tonometry (Applanation, 2:22 PM) Right Left Pressure 15 15 Pupils Pupils Shape React APD Right PERRL Round Brisk None Left PERRL Round Brisk None Visual Coker Left Right Full Full Extraocular Movement Right Left Full Full Neuro/Psych Oriented x3: Yes Mood/Affect: Normal Dilation Both eyes: 1.0% Mydriacyl @ 2:22 PM Slit Lamp and Fundus Exam External Exam Right Left External Normal Normal Slit Lamp Exam Right Left Lids/Lashes Normal Normal Conjunctiva/Sclera White and quiet White and quiet Cornea Clear Clear Anterior Chamber Deep and quiet Deep and quiet Iris Round and reactive, no NVI Round and reactive, no NVI Lens Clear Clear Anterior Vitreous Normal Normal Fundus Exam Right Left Disc Normal, no NVD Normal, no NVD C/D Ratio 0.2 0.2 Macula Normal, no CSME Normal, no CSME Vessels Normal Normal Periphery Normal, no NVE Normal, no NVE Study findings: none Assessment/Plan 1. Diabetes type 2 with no ocular manifestations OU Encouraged tight BG control and continued care with managing physician, discussed consequences of elevated glucose over time -explained to patient that although initial diabetic changes are usually reversible, the ophthalmiccomplications of diabetes can be vision threatening. Patient expressed understanding of the need tocontrol DM. Alise Serra, OD * Puma Purcell - 02/24/2022 2:24 PM CDT Puma's A&P #DM II without ocular manifestations Uncorrected VA today 20/15 OD, OS, OU No retinopathy Dx <1 year ago A1c 5.5 Unknown BS Encourage pt to continue good BS control and PCP follow up. Pt ed on effects of diabetes in the eye. Puma Sibley 4th Year Optometry Movie Extra documented in this encounter Plan of Treatment Not on file documented as of this encounter Visit Diagnoses Diagnosis Diabetes mellitus without ophthalmic manifestations (HCC)- Primary Type II or unspecified type diabetes mellitus without mention of complication, not stated as uncontrolled documented in this encounter Care Teams Building Construction Ironworker Relationship Specialty Start Date End Date Pankaj Rosenberg MD [address] [address] PCP - General 10/06/21 documented as of this encounter
--- OUTSIDE RECORDS SUMMARY | 2024-05-13 10:42 | XMS_ITS | Encounter Summary ---
Author Organization [facility] Address [address] [place] [address] Care Team Providers Care Nuclear Technician Name Role Phone Bertha Ochoa MD Primary Care Provider [phone] Encounter Details Date Type Department Care Team (Late st Contact Info) Description 09/22/2021 11:59 PM CDT Anesthesia Event [facility] [address] [place] [phone] Alexsandra Ingram DO [address] [place] [address] [place] [address] Anesthesia Record Procedure Summary Procedure Name Responsible Anesthesiologist Anesthesia Start Time Anesthesia Stop Time PAIN POSTOP ANES Events No events on file. Meds * Agents No agents on file. * Blood No blood administrations on file. Lines, Drains, and Airways No LDAs on file. documented in this encounter Social History Tobacco Use Types Packs/Day Years Used Date Smoking Tobacco: Never Smokeless Tobacco: Former Chew Quit: 09/15/2020 Alcohol Use Standard Drinks/Week Comments Yes 0 (1 standard drink = 0.6 oz pur e alcohol) occ AUDIT-C Answer Date Recorded Q1: How often do you have a drink containing alcohol? Never 07/25/2022 Q2: How many drinks containi ng alcohol do you have on a typical day when you are drinking? Patient does not drink Q3: How often do you have si x or more drinks on one occasion? Never 07/25/2022 Overall Financial Resource Strain (CARDIA) Answe r Date Recorded How hard is it for you to pa y for the very basics like food, housing, medical care, and heating? Not hard at all 07/27/2022 [facility] [place] of Occupat ional Health - Occupational Stress Questionnaire Answer Date Recorded Do you feel stress - tense, restless, nervous, or anxious, or unable to sleep at night because your mind is troubled all the time - these days? Not at all 07/27/2022 Hunger Vital Sign Answer Date Recorded Within the past 12 months, y ou worried that your food would run out before you got the money to buy more. Never true 07/28/19 23 Within the past 12 months, t he food you bought just didn't last and you didn't have money to get more. Never true 07/27/2022 PRAPARE - Transportation Answer Date Re corded In the past 12 months, has l ack of transportation kept you from medical appointments or from getting medications? No 07/14 In the past 12 months, has l ack of transportation kept you from meetings, work, or from getting things needed for daily living? No 07/27/2022 Housing Stability Vital Sign Answer Kaiden e Recorded In the last 12 months, was t here a time when you were not able to pay the mortgage or rent on time? Yes 07/27/2022 In the last 12 months, how many places have you lived? 1 07/27/2022 In the last 12 months, was t here a time when you did not have a steady place to sleep or slept in a jail (including now)? No 07/27/2022 Sex and Gender Information Value Date Recorded [...] as of this encounter Progress Notes * Alexsandra Ingram DO - 09/22/2021 8:19 AM CDT [facility] Plan of Care Note Patient seen and examined. Patient's pain adequately controlled on PO regimen, discharge paperwork already printed. Patient vocalized understanding for discharge pain regimen. Patient seen and discussed with Dr. Godinez. Alexsandra Ingram DO Anesthesiology and Critical Care PGY-2 09/22/2021 10:23 AM documented in this encounter Plan of Treatment Not on file documented as of this encounter Visit Diagnoses Not on filedocumented in this encounter Care Teams Nuclear Technician Relationship Specialty Start Date End Date Bertha Ochoa MD [address] [place] [address] PCP - General 09/21/21 10/05/21 documented as of this encounter
--- OUTSIDE RECORDS SUMMARY | 2024-05-13 10:42 | XMS_ITS | Encounter Summary ---
Author Organization [facility] Address [address] [place] [address] Care Team Providers Care Tobacco Stemmer Machine Name Role Phone Pankaj Rosenberg MD Primary Care Provider [phone] Reason for Visit * Reason Onset Date Comments Surgery Scheduling 06/17/2022 Encounter Details Date Type Department Care Team (Late st Contact Info) Description 06/17/2022 Telephone [facility] [address] [place] [address] Carolyn Miles MD [address] [place] [address] Surgery Scheduling Social History Tobacco Use Types Packs/Day Years [...] No 03/18/2022 documented as of this encounter Plan of Treatment Not on file documented as of this encounter Visit Diagnoses Not on filedocumented in this encounter Care Teams Tobacco Stemmer Machine Relationship Specialty Start Date End Date Pankaj Rosenberg MD [address] [address] PCP - General 10/06/21 documented as of this encounter
--- OUTSIDE RECORDS SUMMARY | 2024-05-13 10:42 | XMS_ITS | Patient Health Summary ---
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 PM [facility] Lymphocyte Absolute 2.07 1.10 - 3.90 10? 3 /uL 10/07/2022 5:46 PM [facility] Monocytes Absolute 0.52 0.26 - 1.07 10? 3 /uL 10/07/2022 5:46 PM [facility] Eosinophils Absolute 0.09 0.00 - 0.47 10? 3 /uL 10/07/2022 5:46 PM [facility] Basophils Absolute 0.06 0.00 - 0.08 10? 3 /uL 10/07/2022 5:46 PM [facility] Immature Granulocytes % 0.4 0.0 - 1.0 % 10/07/2022 5:46 PM [facility] Immature Granulocytes Absolute 0.05 10/07/2022 5:46 PM [facility] Blood BLOOD SPECIMEN / Unknown Venipuncture / Unknown 10/07/2022 5:34 PM CDT 10/07/2022 5:40 PM CDT Bharati Delaney PA-C LAB - HEMATOLOGY OR DERABLES [facility] [address] [place] [address], [facility] [phone] * (ABNORMAL) COMPREHENSIVE METABOLIC PANEL (10/07/2022 5:34 PM [facility]) Only the most recent of4 resultswithin the time period is included. BUN 16 7 - 26 mg/dL 10/07/2022 6:08 PM [facility] Creatinine 0.76 0.71 - 1.16 mg/dL 10/07/2022 6:08 PM [facility] Sodium 138 136 - 145 mmol/L 10/07/2022 6:08 PM [facility] Potassium 4.3 3.5 - 4.5 mmol/L 10/07/2022 6:08 PM [facility] Chloride 103 98 - 107 mmol/L 10/07/2022 6:08 PM [facility] CO2 23 22 - 29 mmol/L 10/07/2022 6:08 PM [facility] Glucose 116(H) 70 - 115 mg/dL 10/07/2022 6:08 PM [facility] Calcium 10.5(H) 8.4 - 10.2 mg/dL 10/07/2022 6:08 PM [facility] Protein Total 8.7(H) 6.0 - 8.3 g/dL 10/07/2022 6:08 PM [facility] Albumin 4.5 3.4 - 5.0 g/dL 10/07/2022 6:08 PM [facility] Bilirubin Total 1.0 0.2 - 1.2 mg/dL 10/07/2022 6:08 PM [facility] Alkaline Phosphatase 98 40 - 150 U/L 10/07/2022 6:08 PM [facility] ALT 40 5 - 55 U/L 10/07/2022 6:08 PM [facility] AST 23 5 - 34 U/L 10/07/2022 6:08 PM [facility] Anion Gap 16 8 - 18 10/07/2022 6:08 PM [facility] BUN/Creatinine Ratio 21 7 - 23 10/07/2022 6:08 PM [facility] Osmolality Calculated 288 270 - 300 mOsm/kg 10/07/2022 6:08 PM [facility] Albumin/Globulin Ratio 1.1 1.1 - 2.3 10/07/2022 6:08 PM [facility] eGFR by CKD-EPI >90 >=90 mL/min/1.7 3 m2 10/07/2022 6:08 PM [facility] Blood BLOOD SPECIMEN / Unknown Venipuncture / Unknown 10/07/2022 5:34 PM CDT 10/07/2022 5:40 PM CDT Bharati Delaney PA-C LAB - CHEMISTRY ORD ERABLES [facility] [address] [place] [address], [facility] [phone] * (ABNORMAL) CBC W/O DIFFERENTIAL (07/28/2022 2:43 AM CDT) Only the most recent of16 resultswithin the time period is included. WBC 8.6 3.5 - 10.5 10? 3 /uL 07/28/2022 3:21 AM [facility] RBC 4.83 4.30 - 5.70 10? 6 /uL 07/28/2022 3:21 AM [facility] Hemoglobin 12.7 12.0 - 17.6 g/dL 07/28/2022 3:21 AM [facility] Hematocrit 39.2 35.2 - 51.7 % 07/28/2022 3:21 AM [facility] MCV 81.2 80.7 - 98.3 fL 07/28/2022 3:21 AM [facility] MCH 26.3(L) 26.7 - 34.0 pg 07/28/2022 3:21 AM [facility] MCHC 32.4 30.8 - 35.9 g/dL 07/28/2022 3:21 AM [facility] RDW-SD 39.4 36.0 - 50.0 fL 07/28/2022 3:21 AM [facility] RDW-CV 13.5 11.2 - 14.8 % 07/28/2022 3:21 AM [facility] Platelet Count 352 150 - 400 10? 3 /uL 07/28/2022 3:21 AM [facility] MPV 10.2 9.4 - 12.9 fL 07/28/2022 3:21 AM [facility] nRBC Absolute 0.00 0 10? 3 /uL 07/28/2022 3:21 AM [facility] nRBC Auto 0.0 0 /100 WBC 07/28/2022 3:21 AM [facility] Blood BLOOD SPECIMEN / Unknown Lab Venipuncture / Unknown 07/28/2022 2:43 AM CDT 07/28/2022 3:13 AM CDT Velia Gray MD LAB - HEMATOLOGY ORD ERABLES [facility] [address] [place] [address], [facility] [phone] * (ABNORMAL) BASIC METABOLIC PANEL (CALCIUM TOTAL) (07/28/2022 2:43 AM CDT) Only the most recent of11 resultswithin the time period is included. BUN 15 7 - 26 mg/dL 07/28/2022 3:39 AM [facility] Creatinine 0.86 0.71 - 1.16 mg/dL 07/28/2022 3:39 AM [facility] Sodium 144 136 - 145 mmol/L 07/28/2022 3:39 AM [facility] Potassium 3.8 3.5 - 4.5 mmol/L 07/28/2022 3:39 AM [facility] Chloride 105 98 - 107 mmol/L 07/28/2022 3:39 AM [facility] CO2 25 22 - 29 mmol/L 07/28/2022 3:39 AM [facility] Glucose 121(H) 70 - 115 mg/dL 07/28/2022 3:39 AM [facility] Calcium 9.4 8.4 - 10.2 mg/dL 07/28/2022 3:39 AM [facility] Anion Gap 18 8 - 18 07/28/2022 3:39 AM [facility] BUN/Creatinine Ratio 17 7 - 23 07/28/2022 3:39 AM CDT [facility] Osmolality Calculated 300 270 - 300 mOsm/kg 07/28/2022 3:39 AM CDT [facility] eGFR by CKD-EPI >90 >=90 mL/min/1.7 3 m2 07/28/2022 3:39 AM CDT [facility] Blood BLOOD SPECIMEN / Unknown Lab Venipuncture / Unknown 07/28/2022 2:43 AM CDT 07/28/2022 3:09 AM CDT Velia Gray MD LAB - CHEMISTRY ORDPatricia REYES [address] [address], [facility] [phone] * PHOSPHORUS BLOOD (07/28/2022 2:43 AM CDT) Only the most recent of10 resultswithin the time period is included. Phosphorus 4.2 2.8 - 5.1 mg/dL 07/28/2022 3:39 AM CDT [facility] Blood BLOOD SPECIMEN / Unknown Lab Venipuncture / Unknown 07/28/2022 2:43 AM CDT 07/28/2022 3:09 AM CDT Velia Gray MD LAB - CHEMISTRY ORDPatricia REYES [address] [address], [place] [phone] * MAGNESIUM BLOOD (07/28/2022 2:43 AM CDT) Only the most recent of14 resultswithin the time period is included. Magnesium 2.2 1.6 - 2.6 mg/dL 07/28/2022 3:39 AM CDT [facility] Blood BLOOD SPECIMEN / Unknown Lab Venipuncture / Unknown 07/28/2022 2:43 AM CDT 07/28/2022 3:09 AM CDT Velia Gray MD LAB - CHEMISTRY ORDE RABLES [facility] Organization Address City/State/ZIP Co de Phone Number [facility] [address] [place] [address], [facility] [phone] * FL SMALL BOWEL SERIES (07/27/2022 2:25 PM CDT) Only the most recent of2 resultswithin the time period is included. Anatomical Region Laterality Modality Abdomen Radiographic Merissa ging 07/27/2022 2:22 PM CDT Impressions 07/27/2022 2:27 PM CDT IMPRESSION: No evidence of small bowel bowel obstruction. > Interpreting Provider: Ginette Wellington MD on 07/27/2022 2:27 PM Narrative 07/27/2022 2:27 PM CDT PROCEDURE: ??FL SMALL BOWEL SERIES, DATE/TIME OF EXAM: ??07/27/2022 2:26 PM, LOCATION ??[facility] INDICATION: K56.600: Partial obstruction of small intestine (CMS/HCC) ADDITIONAL CLINICAL INFORMATION: Ordering Provider Reason For Exam: ??SBO Technique/contrast: The nasogastric tube was advanced further into the stomach so that the side-port was within the stomach. A total of 200 cc water-soluble contrast (Isovue-300) was given through the NG tube, 100 cc at a time. Serial images were taken. FINDINGS: Aircraft Engineer image shows small bowel distention up to 4.5 cm. There is progressive advancement of the contrast column, with opacification of the ascending colon at 2 hours. Much of the small bowel is right-sided. Procedure Note Ginette Wellington MD - 07/27/2022 PROCEDURE: FL SMALL BOWEL SERIES, DATE/TIME OF EXAM: 07/27/2022 2:26PM, LOCATION [facility] INDICATION: K56.600: Partial obstruction of small intestine (CMS/HCC) ADDITIONAL CLINICAL INFORMATION: Ordering Provider Reason For Exam: SBO Technique/contrast: The nasogastric tube was advanced further into the stomach so that the side-port was within the stomach. A total of 200 cc water-solublecontrast (Isovue-300) was given through the NG tube, 100 cc at a time. Serialimages were taken. FINDINGS: Aircraft Engineer image shows small bowel distention up to 4.5 cm. There isprogressive advancement of the contrast column, with opacification of the ascending colon at 2 hours. Much of the small bowel is right-sided. IMPRESSION: No evidence of small bowel bowel obstruction. > Interpreting Provider: Ginette Wellington MD on 07/27/2022 2:27 PM Christiane Downing MD FLUOROSCOPY ORDERABL ES * (ABNORMAL) HEMOGLOBIN A1C (07/26/2022 3:44 AM CDT) Only the most recent of2 resultswithin the time period is included. Hemoglobin A1c 6.3(H) <=5.6 % 07/26/2022 11:04 AM CDT [facility] Estimated Average Glucose 134 mg/dL 07/26/2022 11:04 AM CDT [facility] Comment: HbA1c Interpretation: Normal : < 5.7% Pre-diabetes: 5.7-6.4% Diabetes: Equal to or greater than 6.5% Test results diagnostic of diabetes should be repeated for confirmation. Treatment target values recommended by ADA and other clinical organizations should be used to evaluate metabolic control in patients. Reference: [place] [employer], Standards of Care in Diabetes -2020 In patients 70 years and older consider HbA1c target range of 7.0-7.5% (Reference: Reid Orellana et al. JAMDA. 2012) The Sebia assay for the measurement of HbA1c is a National Glycohemoglobin Standardization Program (NGSP) certified method. Blood BLOOD SPECIMEN / Unknown Venipuncture / Unknown 07/26/2022 3:44 AM CDT 07/26/2022 4:05 AM CDT Velia Gray MD LAB - CHEMISTRY [place] [facility] [address] [address], [facility] [phone] * XR ABDOMEN KUB PORTABLE (07/25/2022 11:18 PM CDT) Only the most recent of4 resultswithin the time period is included. Anatomical Region Laterality Modality Abdomen Radiographic Merissa ging 07/25/2022 11:3 2 PM CDT Narrative 07/26/2022 12:25 AM CDT PROCEDURE: ??XR ABDOMEN KUB PORTABLE, DATE/TIME OF EXAM: ??07/25/2022 11:19 PM, LOCATION ??[facility] INDICATION: R10.84: Abdominal pain, generalized ADDITIONAL CLINICAL INFORMATION: Ordering Provider Reason For Exam: ??ng tube placement COMPARISON: Abdominal radiographs 07/25/2022 at 4:45 PM FINDINGS/IMPRESSION: 1.Interval placement of a suction-type enteric tube that courses below the diaphragm and with the distal tip superimposing the gastric body. 2.Previously seen liquid levels within some bowel loops is no longer conspicuous on this examination. 3.Surgical clips projecting over the right upper abdominal quadrant, consistent with prior cholecystectomy. Report dictated by Adelita Pruitt MD (family medicine resident). Oseas Zhou MD, PhD have personally reviewed and interpreted this examination/study. > Interpreting Provider: Oseas Nguyen MD, PhD on 07/26/2022 12:25 AM Procedure Note Oseas Nguyen MD - 07/26/2022 PROCEDURE: XR ABDOMEN KUB PORTABLE, DATE/TIME OF EXAM: 07/25/2022 11:19 PM, LOCATION [facility] INDICATION: R10.84: Abdominal pain, generalized ADDITIONAL CLINICAL INFORMATION: Ordering Provider Reason For Exam: ng tube placement COMPARISON: Abdominal radiographs 07/25/2022 at 4:45 PM FINDINGS/IMPRESSION: 1.Interval placement of a suction-type enteric tube that courses belowthe diaphragm and with the distal tip superimposing the gastric body. 2.Previously seen liquid levels within some bowel loops is no longer conspicuous on this examination. 3.Surgical clips projecting over the right upper abdominal quadrant, consistent with prior cholecystectomy. Report dictated by Adelita Pruitt MD (family medicine resident). Oseas Zhou MD, PhD have personally reviewed and interpreted this examination/study. > Interpreting Provider: Oseas Nguyen MD, PhD on 07/26/2022 12:25 AM Velia Gray MD DIAGNOSTIC IMAGING O RDERABLES * PT-INR [facility] (07/25/2022 4:57 PM CDT) [facility] PT 12.7 12.1 - 14.8 Seconds 07/25/2022 5:39 PM CDT [facility] INR 1.0 See Comment 07/25/2022 5:39 PM CDT [facility] Comment:The suggested therap eutic range for standard coumadin (warfarin) therapy is an INR of 2.0-3.0. For high-risk patients (Mechanical Mitral Valve Prosthesis, etc.), the suggested prophylactic therapeutic range is an INR of 2.5-3.5. Blood BLOOD SPECIMEN / Unknown Venipuncture / Unknown 07/25/2022 4:57 PM CDT 07/25/2022 5:17 PM CDT Velia Gray MD LAB - COAGULATION OR DERABLES Performing Organization Address City/[facility]/ZIP Co de Phone Number [address] [address], [place] [phone] * TYPE + SCREEN PANEL (07/25/2022 4:57 PM CDT) Only the most recent of3 resultswithin the time period is included. Antibody Screen NEG 5:48 PM CDT [facility] ABO Rh O POS 07/25/2022 5:48 PM CDT [facility] Blood Bank BLOOD SPECIMEN / Unknown Venipuncture / Unknown 07/25/2022 4:57 PM CDT 07/25/2022 5:13 PM CDT Velia Gray MD LAB - BLOOD BANK ORD ERABLES [facility] [address] [place] [address], [place] [phone] * LACTIC ACID BLOOD (07/25/2022 4:57 PM CDT) Only the most recent of2 resultswithin the time period is included. Lactic Acid-Stat 1.6 <=2.0 mmol/L 07/25/2022 5:38 PM CDT [facility] Blood BLOOD SPECIMEN / Unknown Venipuncture / Unknown 07/25/2022 4:57 PM CDT 07/25/2022 5:17 PM CDT Velia Gray MD LAB - CHEMISTRY [place] [facility] Organization Address City/State/ZIP Co de Phone Number [facility] [address] [place] [address], [facility] [phone] * XR ABDOMEN KUB (07/25/2022 4:52 PM CDT) Only the most recent of2 resultswithin the time period is included. Anatomical Region Laterality Modality Abdomen Radiographic Merissa ging 07/25/2022 5:06 PM CDT Impressions 07/25/2022 11:16 PM CDT IMPRESSION: Stool in the distal colon. Multiple small bowel air-fluid levels without significant small bowel distention. Recommend clinical correlation with constipation. Report dictated by Uche Hensley MD (family medicine resident). Sabra Zhou MD have personally reviewed and interpreted this examination/study. > Interpreting Provider: Sabra Tracy MD on 07/25/2022 11:16 PM Narrative 07/25/2022 11:16 PM CDT PROCEDURE: ??XR ABDOMEN KUB, DATE/TIME OF EXAM: ??07/25/2022 4:27 PM, LOCATION [facility] INDICATION: R10.84: Abdominal pain, generalized ADDITIONAL CLINICAL INFORMATION: Ordering Provider Reason For Exam: ??n/a COMPARISON: Multiple prior examinations, most recently portable KUB dated 03/17/2022 FINDINGS: Multiple small bowel air-fluid levels are noted without significant small bowel distention. Stool is present throughout the colon most prominent in the sigmoid colon. Free intraperitoneal air is not adequately assessed on supine radiographs. The visible osseous structures are intact. The lung bases are clear. 2 surgical likely postsurgical cholecystectomy clips superimpose the right upper quadrant. Procedure Note Lexi Tracy MD - 07/25/2022 PROCEDURE: XR ABDOMEN KUB, DATE/TIME OF EXAM: 07/25/2022 4:27 PM,LOCATION [facility] INDICATION: R10.84: Abdominal pain, generalized ADDITIONAL CLINICAL INFORMATION: Ordering Provider Reason For Exam: n/a COMPARISON: Multiple prior examinations, most recently portable KUB dated 03/17/2022 FINDINGS: Multiple small bowel air-fluid levels are noted without significantsmall bowel distention. Stool is present throughout the colon most prominentin the sigmoid colon. Free intraperitoneal air is not adequately assessedon supine radiographs. The visible osseous structures are intact. The lung bases are clear. 2 surgical likely postsurgical cholecystectomy clips superimpose the right upper quadrant. IMPRESSION: Stool in the distal colon. Multiple small bowel air-fluid levels without significant small bowel distention. Recommend clinical correlation with constipation. Report dictated by Uche Hensley MD (family medicine resident). ISabra MD have personally reviewed and interpreted this examination/study. > Interpreting Provider: Sabra Tracy MD on 07/25/2022 11:16 PM Velia Gray MD DIAGNOSTIC IMAGING O RDERABLES * PATHOLOGY TISSUE (07/13/2022 9:02 AM [employer]ACHINE [employer]) Only the most recent of2 resultswithin the time period is included. Case Report Surgical Pathology Report ? Case: [id number] ? Authorizing Provider: ??Carolyn Miles MD ? Collected: ? 07/13/2022 09:02 AM ? Ordering Location: ? [facility] ?Received: ?07/13/2022 10:25 AM ? Pathologist: ? Gene Guardado MD ? Specimen: ?Gallbladder, GALLBLADDER ? 07/16/2022 1:33 PM [facility] Final Diagnosis Gallbladder, cholecystectomy (A): - Mild chronic cholecystitis 07/16/2022 1:33 PM [facility] Microscopic Description and Comment Microscopic examination substantiates the final diagnosis. No polyp identified grossly. 07/16/2022 1:33 PM [facility] Clinical History The patient is is a 27 year old male who presents with hx of gallbladder polyps recently getting larger on last ultrasound. The patient underwent cholecystectomy 07/16/2022 1:33 PM [facility] Gross Description Requisition [...] wall thickness is up to 0.2 cm. Furnace Reliner section is submitted in cassette A1-A2. /MA Additional sections are submitted in cassettes A3. /ME 07/16/2022 1:33 PM [facility] Disclaimer The performance characteristics of all immunohistochemical and indirect immunofluorescence stains (if any) cited in this report were determined by the Histopathology Laboratory of [facility]. Some of these tests were [...] the attending (teaching) pathologist. 07/16/2022 1:33 PM [facility] Embedded Images 07/16/2022 1:33 PM [facility] Resection without Tumor ENTIRE GALLBLADDER / Unknown 07/13/2022 9:02 AM SECTION LEADER AND MACHINE SETTER 07/13/2022 10:25 AM [employer] [facility] [employer] Comment:Pre-op diagnosis: Gallbladder polyp Carolyn Miles MD LAB - PATHOLOGY/CYTO LOGY ORDERABLES [facility] [address] [place] [address], [facility] [phone] * ETT LINE PERFORMABLE (07/13/2022 8:05 AM SECTION LEADER AND MACHINE SETTER) Narrative Jenifer Coto Anes Asst - 07/13/2022 8:05 AM SECTION LEADER AND MACHINE SETTER Jenifer Coto Anes Asst ? 07/13/2022 ??8:06 AM Endotracheal Tube Placement: ? Patient Location: OR. Intubation Event Date/Time: ??07/13/2022 7:34 AM Procedure: intubation ([id number]). Procedure Section: ?? Sedation: under general anesthesia. [...] Ramin Cuello MD GENERAL ANESTHESIA O RDERABLES * RENAL FUNCTION PANEL (03/21/2022 6:06 AM [facility]) Only the most recent of4 resultswithin the time period is included. BUN 11 7 - 26 mg/dL 03/21/2022 8:26 AM [facility] Creatinine 0.82 0.71 - 1.16 mg/dL 03/21/2022 8:26 AM [facility] Sodium 140 136 - 145 mmol/L 03/21/2022 8:26 AM [facility] Potassium 4.0 3.5 - 4.5 mmol/L 03/21/2022 8:26 AM [facility] Chloride 107 98 - 107 mmol/L 03/21/2022 8:26 AM [facility] CO2 23 22 - 29 mmol/L 03/21/2022 8:26 AM [facility] Glucose 109 70 - 115 mg/dL 03/21/2022 8:26 AM [facility] Albumin 3.6 3.4 - 5.0 g/dL 03/21/2022 8:26 AM [facility] Calcium 9.3 8.4 - 10.2 mg/dL 03/21/2022 8:26 AM [facility] Phosphorus 3.7 2.8 - 5.1 mg/dL 03/21/2022 8:26 AM [facility] Anion Gap 14 8 - 18 03/21/2022 8:26 AM [facility] BUN/Creatinine Ratio 13 7 - 23 03/21/2022 8:26 AM [facility] Osmolality Calculated 290 270 - 300 mOsm/kg 03/21/2022 8:26 AM [facility] eGFR by CKD-EPI >90 >=90 mL/min/1.7 3 m2 03/21/2022 8:26 AM [facility] Blood BLOOD SPECIMEN / Unknown Lab Venipuncture / Unknown 03/21/2022 6:06 AM SE[employer] LEAD[employer] AND MACHINE SETTER 03/21/2022 7:05 AM [facility] Jay King PA-C LAB - CHEMISTRY ORD ERABLES [facility] [address] [place] [address], [facility] [phone] * CULTURE BLOOD (03/17/2022 5:27 AM CDT) Only the most recent of2 resultswithin the time period is included. Culture No growth day 5 YAN 03/22/2022 7:30 AM SECTION LEADER AND MACHINE SETTER [facility] Blood PERIPHERAL BLOOD / Unknown Venipuncture / Unknown 03/17/2022 5:27 AM CDT 03/17/2022 5:32 AM CDT Carolyn Houston MD LAB - MICROBIOLOGY O RDERABLES [facility] [address] [place], [place] [address], [facility] [phone] * PROCALCITONIN LEVEL (03/17/2022 5:22 AM CDT) PROCALCITONIN <0.02 <=0.10 ng/mL 03/17/2022 6:42 AM CDT [facility] Blood BLOOD SPECIMEN / Unknown Venipuncture / Unknown 03/17/2022 5:22 AM CDT 03/17/2022 5:47 AM CDT Narrative [facility] - 03/17/2022 6:42 AM CDT The change in procalcitonin (PCT) concentration over time provides support in decision making on antibiotic discontinuation for suspected or confirmed septic patients. Follow-up samples should be tested once every 1-2 days based upon physician discretion taking into account the patient? s evolution and progress. Consider discontinuation of ??antibiotic therapy ??if the PCT current ??is <= 0.5 ng/mL or if the delta PCT is > 80%. ??Duration of antibiotics should not be determined solely on PCT; established guidelines for the indication should be followed. ? PCT peak: ??Highest observed PCT concentration ? PCT current: Most recent PCT concentration ? Calculate delta PCT using the following equation: ?Delta PCT ??= ?? PCT Peak ? PCT current ??X 100% ? PCT Peak The Change in Procalcitonin Calculator is available at [email or web address] ?? If clinical picture has not improved and PCT remains high, reevaluate and consider treatment failure or other causes. Carolyn Houston MD LAB - CHEMISTRY [place] Performing Organization Address City/[facility]/ZIP Co de Phone Number [address] [address], [place] [phone] * CREATININE - POCT INTERFACED (03/17/2022 4:16 AM CDT) Creatinine POCT 0.89 0.30 - 1.30 mg/dL 03/17/2022 4:28 AM CDT [facility] eGFR >90 >90 mL/min/1.7 3 m2 03/17/2022 4:28 AM CDT [facility] Blood BLOOD SPECIMEN / Unknown 03/17/2022 4:16 AM CDT 03/17/2022 4:27 AM CDT Provider Unknown LAB - POINT OF CARE ORDERABLES Performing Organization Address [facility]/ZIP Co de Phone Number [address] [address], [place] [phone] * LIPASE BLOOD (03/17/2022 3:41 AM CDT) Lipase 26 8 - 78 U/L 03/17/2022 4:19 AM CDT [facility] Blood BLOOD SPECIMEN / Unknown Venipuncture / Unknown 03/17/2022 3:41 AM CDT 03/17/2022 3:51 AM CDT Eriberto Plascencia PA-C LAB - CHEM ISTRY ORDERABLES [facility] [address] [place] [address], [facility] [phone] * ARTERIAL LINE PERFORMABLE (09/17/2021 10:51 AM CDT) Narrative Darryl Samano MD - 09/17/2021 10:51 AM CDT Gene Rangel DO ? 09/17/2021 10:51 AM Arterial Line Placement Procedure Note Patient Location: OR. Procedure: Arterial Line ([id number]). Procedure Section ?? Indications: continuous blood pressure monitoring. Skin Prep: Chloraprep. Orientation: Left. Site: radial. Site Identification: ultrasound guided with sterile sleeve and gel. Sterile Technique: cap and mask. Gauge: 20. Catheter Length: 1 and 3/4 inch. Catheter Type: Arrow. Number of Attempts: 2. Line Secured with: tape and Tegaderm. Procedure Tolerance: performed while patient under general anesthesia. Procedure Start Time: 09/17/2021 10:32 AM. Staff Section ? Anesthesia Provider: Darryl Samano MD ? Provider #1: Gene Rangel DO, Performed the procedure. Darryl Samano MD GENERAL ANESTHESI A ORDERABLES * ETT LINE PERFORMABLE (09/17/2021 10:49 AM CDT) Narrative Darryl Samano MD - 09/17/2021 10:49 AM CDT Gene Rangel DO ? 09/17/2021 11:01 AM Endotracheal Tube Placement: ? Patient Location: OR. Intubation Event Date/Time: ??09/17/2021 10:16 AM Procedure: intubation (15788). Procedure Section: ?? Sedation: under general anesthesia. Indications for Airway Management: ??anesthesia Induction: rapid sequence Patient Position: ??sniffing and supine Mask Ventilation: not attempted. Blade Type: Video Blade Size: 4 Laryngoscopy View: grade 1 (full cords) Intubation Adjuncts: stylet Tube: endotracheal tube Placement: oral Tube type: cuff - inflated Tube Size (MM): 8 Depth of Insertion (CM): 23 Measured From: lips Cuff Inflated With: air Number of Attempts: 2. Placement Verified By: direct visualization, bilateral breath sounds, chest auscultation and CO2 monitor Tube secured with: ??adhesive tape. Difficult Airway? ??No. Procedure Start Time: 09/17/2021 10:16 AM. Staff Section ? Anesthesia Provider: Darryl Samano MD ? Provider #1: Gene Rangel DO, Performed the procedure. Darryl Samano MD GENERAL ANESTHESI A ORDERABLES * EPIDURAL BLOCK PERF (09/17/2021 9:55 AM CDT) Narrative Nicole Suárez MD - 09/17/2021 9:55 AM CDT Nicole Suárez MD ? 09/17/2021 10:01 AM Neuraxial Block Note ?? Pre-Procedure: ?? Procedure Name: ??Neuraxial Block Patient Location: ??Pre-op Referred By: surgeon. Indications: ??at surgeon's request Pre-Anesthetic Checklist: ??Patient identified, IV Checked, Risks and benefits discussed, Surgical consent verified, Monitors and equipment, Site examined, Pre-op evaluation done, Time-out performed, Informed consent obtained, Questions answered/anesthesia questions answered and Allergies reviewed Anticoagulation/ Anti-thrombosis status confirmed? ??Yes Supplemental O2: ??nasal cannula Monitors: ??BP, continuous pluse ox, EKG and End tidal CO2 Patient Condition: ??awake Patient Sedated? ??Yes ? Sedation Type: ??mild ? Sedation Agents: ??midazolam (VERSED) injection - Intravenous 2 mg - 09/17/2021 9:35:00 AM Procedure: ?? Block Type: ??Epidural Prep: ??Chloraprep Sterile Field: ??mask, cap/hat, sterile established and sterile gloves Approach: ??midline Skin was localized? ??Yes Skin localized with: lidocaine (XYLOCAINE) 1 % injection - Infiltration 1 mL - 09/17/2021 4:56:00 AM Epidural Block: ?? Is this procedure for postop pain? ??Yes ? Reason: ??anticipated postoperative pain Needle Type: ??Tuohy Needle gauge: ??18 G Placement Site: ??Thoracic (T12-L1) Number of Attempts: ??1 Loss of Resistance: ??8 ?? saline Catheter threaded to (cm): ??6 Catheter length at skin (cm): ??14 CSF Aspirated from catheter: ??No Blood Aspirated: ??No Test Dose: ??lidocaine 1.5% with 1-200,000 epinephrine ?? 3 ??mL at ??09/17/2021 9:54 AM Test Dose Response: ??No Epidural Local Anesthetic Used? ??No Degree of difficulty: ??none Procedure Tolerance: ??tolerated well Sensory Level: ??T9 Motor Blockade: ??No Position post procedure: ??head of bed elevated 30 degrees Start Time: ??09/17/2021 7:40 PM End Time: ??09/17/2021 7:58 PM Total Time: ??18 Staff: ?? Anesthesia Provider: ??Nicole Suárez MD Provider #1: ??Alexsandra Ingram, DO ?? - ??performed the procedure Additional Notes: ??Procedure performed for postoperative pain relief after abdominal surgery. I was present and supervised throughout the procedure. Nicole Suárez MD Nicole Suárez MD [facility] Care Teams Micromatic Hone Operator Relationship Specialty Start Date End Date Pankaj Rosenberg MD [address] [place] [address] PCP - General 10/06/21
--- OUTSIDE RECORDS SUMMARY | 2024-05-13 10:42 | XMS_ITS | Encounter Summary ---
Author Organization [facility] Address [address] [place] [address] Care Team Providers Care Customer Contact Sales Associate Name Role Phone Pankaj Rosenberg MD Primary Care Provider [phone] Reason for Visit * Reason Comments Post-Op LAP POST OP 5.10.04 Encounter Details Date Type Department Care Team (Late st Contact Info) Description 10/07/2021 1:45 PM CDT Office Visit [facility] General Surgery [address] [place] [id number] S/P partial resection of colon (Primary Dx) Social History Tobacco Use Types [...] Sign Reading Time Taken Comments Blood Pressure 129/101 10/07/2021 1:45 PM CDT Pulse 116 10/07/2021 1:45 PM CDT Temperature 36.5 ??C (97.7 ??F) 10/07/2021 1:45 PM CD T Respiratory Rate 18 10/07/2021 1:45 PM CDT Oxygen Saturation 98% 10/07/2021 1:45 PM CDT Inhaled Oxygen Concentration - - Weight 110.7 kg (244 lb) 10/07/2021 1:45 PM CDT Height 180.3 cm (5' 11 ) 10/07/2021 1:45 PM CDT Body Mass Index 34.03 10/07/2021 1:45 PM CDT documented in this encounter Functional Status Functional [...] as of this encounter Progress Notes * Jt Seo - 10/07/2021 1:45 PM CDT Images from the original note were not included. Acute Care Surgery Clinic Progress Note Patient Name: Chuck Barlow Date of : 1995 Chief Complaint/Reason for clinic visit: post-operative visit HPI: Chuck Barlow is a 26 year old male with a PMHx of HTN, HLD, T2DM, GERD, gastroschisis, and two small bowel obstructions s/p small bowel resections prior to age 4 who was transferred to [facility] on OSH on 09/15 for evaluation of small bowel obstruction. He underwent exploratory laparotomy, small bowel resection, and enterolysis on 09/17/21. Pathology showed serosal adhesions, stricture, and focal ulceration. Surgical margins were viable. Subjective: Patient is s/p exploratory laparotomy, small bowel resection, and enterolysis on 09/17/21. He is continuing to recover well. He is having bowel movements and flatus consistently. Patient denies blood in stool. He is voiding spontaneously. He is tolerating an unrestricted diet well. He denies fevers, chills, nausea, vomiting, and diarrhea. Patient no longer experiences any abdominal pain or discomfort. Objective There were no vitals filed for this visit. Current Outpatient Medications Medication Sig Dispense Refill ??? Alcohol Swabs (ALCOHOL PREP) 70 % USE 1 SWAB TO CLEAN SKIN TWICE DAILY BEFORE TESTING 100 Each PRN ??? amLODIPine (NORVASC) 10 MG tablet Take 10 mg by mouth once daily ??? blood glucose (emereUCH VERIO) test strip USE 1 STRIP TO CHECK BLOOD SUGAR TWICE DAILY Reasons:FOR DIABETES EDUCATION 100 strip PRN ??? Blood Glucose Monitoring Suppl (emereUCH VERIO REFLECT) w/Device KIT Use 1 Units 2 times daily USE MACHINE TO CHECK BLOOD SUGAR TWICE DAILY 1 kit 0 ??? cetirizine (ZYRTEC) 5 MG chew tablet Take 5 mg by mouth once daily ??? cyclobenzaprine (FLEXERIL) 10 MG tablet Take 1 (one) tablet by mouth 3 times daily 30 tablet 0 ??? HYDROcodone-acetaminophen (NORCO) 7.5-325 MG tablet Take 1 (one) tablet by mouth every 6 hours as needed for Pain 12 tablet 0 ??? Lancets (PROGENESIS TECHNOLOGIESTOUCH DELICA PLUS 33G EXTRA FINE LANCET) USE 1 LANCET TO PRICK FINGER TWICE DAILY BEFORE TESTING 100 Each PRN ??? lidocaine (LIDODERM) 5 % patch Apply 1 (one) patch to skin every 24 hours 12 patch 0 ??? lisinopril (PRINIVIL; ZESTRIL) 40 MG tablet Take 40 mg by mouth once daily ??? loratadine (CLARITIN) 10 MG tablet Take 10 mg by mouth once daily as needed ??? montelukast (SINGULAIR) 10 MG tablet Take 10 mg by mouth at bedtime ??? omeprazole (PRILOSEC) 40 MG capsule Take 40 mg by mouth once daily ??? polyethylene glycol 3350 (MIRALAX) 17 GM/SCOOP powder Take 17 (seventeen) g by mouth once [id number] g 0 ??? pravastatin (PRAVACHOL) 40 MG tablet Take 1 tablet by mouth every evening ??? SALINE NASAL SPRAY NA ??? SITagliptin (JANUVIA) 25 MG tablet Take 25 mg by mouth once daily ??? traMADol 100 MG TABS Take 100 mg by mouth every 8 hours 12 tablet 0 No current facility-administered medications for this visit. Physical Exam Gen: NAD HEENT: AT/NC, EOMI CV: RRR Pulm: Nonlabored respirations. Symmetric chest rise. Abd: Soft, NT/ND. Midline incision dry and well approximated with alessia. MSK: WWP, no c/c/e Neuro: Moving all extremities, no focal deficits Psych: Appropriate mood and affect Assessment/Plan Chuck Barlow is a 26 year old male who is s/p exploratory laparotomy, small bowel resection, and enterolysis on 09/17/21. He continues to recover well, with no return of obstructive symptoms. Today we removed his midline alessia. Plan: 1) We recommend OTC stool softener, Colace. 2) Avoid lifting over 20 pounds for 3 more weeks. 3) Call the office with any concerns. 4) Follow up as needed. 5) Recommend continued diabetic control. HIRA Mukherjee Patient seen in clinic with HIRA Hernandez Wound healed Discussed postop lifting restrictions and duration Alessia removed Agree with assessment and plan as outlined documented in this encounter Plan of Treatment Not on file documented as of this encounter Visit Diagnoses Diagnosis S/P partial resection of colon- Primary Other postprocedural status documented in this encounter Care Teams Customer Contact Sales Associate Relationship Specialty Start Date End Date Pankaj Rosenberg MD [address] [facility] [address] [place] [id number] PCP - General 10/06/21 documented as of this encounter
--- OUTSIDE RECORDS SUMMARY | 2024-05-13 10:42 | XMS_ITS | Encounter Summary ---
Author Organization [facility] Address [address] [facility] [place] [address] Care Team Providers Care Patent Solicitor Name Role Phone Pankaj Rosenberg MD Primary Care Provider [phone] Reason for Referral * Evaluate & Treat (Routine) - Closed Specialty Diagnoses / Procedures Referred By Horacio t Referred To Contact Surgery-General Diagnoses Partial obstruction of small intestine (HCC) S/P exploratory laparotomy Christiane Downing MD [address] [place] [address] Count Includes [facility] [address] [facility], [place] [address] Referral ID Status Reason Start Date Expiration Date V isits Requested Visits Authorized [id number] Closed Discharge Follow-up 07/27/2022 07/27/2023 1 1 Reason for Visit * Reason Comments Pain Abdominal 27 y/o male to ED w/ abdominal pain since this AM; PMHx includes multiple bowel obstruction, cholecystectomy on 07/13, and bowel resection 09/2021. Says pain he is having is similar to how he presented with obstructions. LBM was this AM. * Auth/Cert (Routine) Specialty Diagnoses / Procedures Referred By Contac t Referred To Contact Referral ID Status Reason Start Date Expiration Date Visits Re quested Visits Authorized [id number] 1 1 Encounter Details Date Type Department Care Team (Latest Contact Info) Description 07/25/2022 4:40 PM CDT - 07/28/2022 10:58 AM CDT Hospital Encounter [facility] ACUTE [address] [place] [id number] Velia Gray MD [address] [place] [address] Nikita Chavez MD [address] [id number] Christiane Downing MD [address] [place] [address] Shelbi Vasques DO [address] OF [facility] INTERNAL MEDICINE [place], [place] [id number] Internal Medicine Discharge Disposition: Home or Self Care Social History Tobacco Use Types Packs/Day Years [...] and heating? Not hard at all 07/27/2022 [employer] [facility] - Occupational Stress [...] Sign Reading Time Taken Comments Blood Pressure 132/93 07/28/2022 7:57 AM CDT Pulse 75 07/28/2022 7:57 AM CDT Temperature 37.1 ??C (98.8 ??F) 07/28/2022 7:57 AM CD T Respiratory Rate 20 07/28/2022 4:21 AM CDT Oxygen Saturation 100% 07/28/2022 7:57 AM CDT Inhaled Oxygen Concentration - - Weight 120.2 kg (265 lb) 07/25/2022 4:03 PM CDT Height 180.3 cm (5' 11 ) 07/25/2022 4:03 PM CDT Body Mass Index 36.96 07/25/2022 4:03 PM CDT documented in this encounter Functional Status Functional Status Response Date of Assess ment Is person deaf or have serious hearing difficult y? No 07/27/2022 Is person blind or have serious difficulty seein g? No 07/27/2022 Does person have serious dif ficulty walking/climbing stairs? No 07/27/2022 Does person have difficulty dressing/bathing? No 07/27/2022 Does person have difficulty doing errands alone? No 07/27/2022 Cognitive Status Response Date of Assessm ent Does person have difficulty concentrating/remembering/making decisions? No 07/27/2022 documented as of this encounter Discharge Summaries * Gurinder Alatorre MD - 07/28/2022 8:35 AM CDT Images from the original note were not included. [facility] INTERNAL MEDICINE DISCHARGE SUMMARY PATIENT: Sheri Cannon 27 year old male : 1995 ADMISSION INFORMATION ADMISSION DISCHARGE Date: 07/25/2022 Date: 07/28/2022 Admitting Physician Christiane Downing MD Discharge Physician: Shelbi Jones, DO Present on Admission: ??? (Resolved) Abdominal pain, generalized ??? History of gastroschisis ??? Partial small bowel obstruction (CMS/HCC) ??? S/P small bowel resection ??? S/P exploratory laparotomy ??? 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 ACS was consulted and placed NGT to LITS for decompression. Pt improved significantly over the day. On 07/27, he had a small bowel follow through which showed no signs of obstruction after which his NGT was removed and his diet was advanced. Pt tolerating PO intake well. He has been given clear instructions of following up with General Surgery. He is being discharged with a bowel regimen which has been sent to his preferred pharmacy in [place], [place]. Note to PCP: Med changes w/rationale: 1. Miralax 17g BID and [id number] BID for constipation Abx: none Follow up imaging: none Follow up labs: none Follow-up appointments: Future Appointments July 10:00 AM Appointment with Carolyn Miles at [facility] ([phone]) [address] [facility], Second Level [facility] [address] Significant Diagnostic Studies: Labs this admission: CBC: Recent Labs Lab 07/28/22 0243 07/27/22 0257 07/26/22 0344 WBC 8.6 8.2 11.2* HGB 12.7 12.2 12.4 HCT 39.2 38.1 38.6 MCV 81.2 80.5* 80.4* PLTCOUNT 352 342 411* BMP: Recent Labs Lab 07/28/22 0243 07/27/22 0257 07/26/22 0344 NA 144 141 136 POTASSIUM 3.8 3.9 4.0 CL 105 105 101 BUN 15 15 16 CREATININE 0.86 0.86 0.77 CALCIUM 9.4 9.3 9.4 CMP: Recent Labs Lab 07/25/22 1754 03/21/22 0606 03/20/22 0428 03/18/22 0419 03/17/22 0341 09/15/21 1848 AST 20 -- -- -- 17 22 ALT 55 -- -- -- 40 47 TBILI 0.8 -- -- -- 1.0 1.2 ALKPHOS 120 -- -- -- 113 80 ALB 4.2 3.6 3.5 1 4.1 3.7 PROT 8.2 -- -- -- 8.2 7.7 1 = values in this interval not displayed. Coagulation: Recent Labs Lab Units 07/25/22 1657 PT Seconds 12.7 INR 1.0 Pertinent Microbiology: none Pending labs: none Imaging: XR ABDOMEN KUB Result Date: 07/25/2022 IMPRESSION: Stool in the distal colon. Multiple small bowel air-fluid levels without significant small bowel distention. Recommend clinical correlation with constipation. Report dictated by Uche Hensley MD (radiology clerk). I, Sabra Tracy MD have personally reviewed and interpreted this examination/study. > Interpreting Provider: Sabra Tracy MD on 07/25/2022 11:[address] ABDOMEN PELVIS W CONTRAST Result Date: 07/25/2022 IMPRESSION Mild borderline dilatation of small bowel loops in the right hemiabdomen. No discrete transition point however suggestion of mild narrowing at the anastomosis. Findings may represent partial obstruction. These findings are not significantly changed since prior CT dated 09/15/2021. The ileocecal valve is located in the left lower quadrant. This report was drafted by Dr. Robin Lundberg MD. (vice president talent management). I, Adriel Rosen MD have personally reviewed and interpreted this examination/study. > Interpreting Provider: Adriel Rosen MD on 07/25/2022 11:14 PM FL SMALL BOWEL SERIES Result Date: 07/27/2022 IMPRESSION: No evidence of small bowel bowel obstruction. > Interpreting Provider: Ginette Wellington MD on 07/27/2022 2:27 PM Discharge Exam: Vitals: BP 132/93 Pulse 75 Temp 98.8 ??F (37.1 ??C) Resp 20 Ht 1.803 m (5' 11 ) Wt 120.2 kg (265 lb) SpO2 100% Gen: Alert, cooperative, no distress Head: Normocephalic, without obvious abnormality, atraumatic Eyes: Conjunctivae/corneas clear, EOMI Nose: Mucosa normal. No drainage. Throat: Moist mucous membranes Neck: No JVD, no carotid bruit, trachea midline Back: Symmetric, no curvature Resp: CTAB, no wheezes/crackles CV: RRR, S1S2, No M/R/G Abd: S/NT/ND, BS+, no bruits, midline scars present, lap kirstie ports healing well Ext: RUE with bowing of humerus Pulses: 2+ DP B Skin: Skin color, texture, turgor normal. No rashes or lesions Neuro: No focal deficits DISCHARGE PLANNING Disposition: Home Patient Instructions: Medication List START taking these medications polyethylene glycol 3350 17 GM/SCOOP powder Commonly known as: Miralax Take 17 (seventeen) g by mouth 2 times daily senna-docusate 8.6-50 MG tablet Commonly known as: Senokot-S Take 1 (one) tablet by mouth 2 times daily for 90 days CONTINUE taking these medications amLODIPine 10 MG tablet Commonly known as: Norvasc ketoconazole 2 % shampoo Commonly known as: Nizoral lisinopril 10 MG tablet Commonly known as: Prinivil; Zestril Take 1 (one) tablet by mouth once daily for 90 days montelukast 10 MG tablet Commonly known as: Singulair omeprazole 40 MG capsule Commonly known as: PriLOSEC pravastatin 40 MG tablet Commonly known as: Pravachol SALINE NASAL SPRAY NA SITagliptin 25 MG tablet Commonly known as: Maximuvia ASK your doctor about these medications acetaminophen 325 MG tablet Commonly known as: Tylenol Take 2 (two) tablets by mouth every 4 hours as needed for Fever or Pain Maximum allowable Acetaminophen amount = 4 Grams (4000 mg) / 24 hours. ONETOUCH DELICA PLUS 33G EXTRA FINE LANCET USE 1 LANCET TO PRICK FINGER TWICE DAILY BEFORE TESTING oxyCODONE (immediate release) 5 MG tablet Commonly known as: Roxicodone Take 1 (one) tablet by mouth every 6 hours as needed for Pain Where to Get Your Medications These medications were sent to [facility] #[id number] - [address] [facility] [address] [facility] [address] , [facility] [address] ?? lisinopril 10 MG tablet ?? polyethylene glycol 3350 17 GM/SCOOP powder ?? senna-docusate 8.6-50 MG tablet Discharge Instructions [facility] ACUTE CARE SURGERY PATIENT DISCHARGE INSTRUCTIONS Date of admission: 07/25/2022 Date of discharge: 07/28/22 Admitting Diagnosis: partial bowel obstruction Primary surgical team: Acute Care Surgery Service Consultation teams: radiology Summary of Specific instructions for SHERI CANNON Diet: Resume your diet as tolerated. Activity: Resume your normal activities Bathing: Shower daily. 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 Call our office to schedule a follow-up appointment if one wasn't make for you prior to your discharge. The number is [phone]. Option 1 for General Surgery. Acute Care Surgery Clinic: [facility] Acute Care Surgery Clinic-[address] [place] [address] If you have questions or concerns: 1. Please call the general surgery office at [phone]. 2. You may also contact the Acute Care Surgery Nurse Practitioner, THEE Michelle at [phone]. Outside Business Hours Questions or Concerns 1. Please call [facility] Hospital Plaster Caster at [phone] and have the General Surgery software consultant resident paged. Medications: You have been provided a prescription for: Medication List START taking these medications polyethylene glycol 3350 17 GM/SCOOP powder Commonly known as: Miralax Take 17 (seventeen) g by mouth 2 times daily senna-docusate 8.6-50 MG tablet Commonly known as: Senokot-S Take 1 (one) tablet by mouth 2 times daily for 90 days CONTINUE taking these medications amLODIPine 10 MG tablet Commonly known as: Norvasc ketoconazole 2 % shampoo Commonly known as: Nizoral lisinopril 10 MG tablet Commonly known as: Prinivil; Zestril Take 1 (one) tablet by mouth once daily for 90 days montelukast 10 MG tablet Commonly known as: Singulair omeprazole 40 MG capsule Commonly known as: PriLOSEC pravastatin 40 MG tablet Commonly known as: Pravachol SALINE NASAL SPRAY NA SITagliptin 25 MG tablet Commonly known as: Januvia ASK your doctor about these medications acetaminophen 325 MG tablet Commonly known as: Tylenol Take 2 (two) tablets by mouth every 4 hours as needed for Fever or Pain Maximum allowable Acetaminophen amount = 4 Grams (4000 mg) / 24 hours. ONETOUCH DELICA PLUS 33G EXTRA FINE LANCET USE 1 LANCET TO PRICK FINGER TWICE DAILY BEFORE TESTING oxyCODONE (immediate release) 5 MG tablet Commonly known as: Roxicodone Take 1 (one) tablet by mouth every 6 hours as needed for Pain Where to Get Your Medications These medications were sent to [facility] #[id number] - [address] [facility] [address] [facility] [address], [facility] [address] ?? lisinopril 10 MG tablet ?? polyethylene glycol 3350 17 GM/SCOOP powder ?? senna-docusate 8.6-50 MG tablet General Your full recovery will take some time. This handout covers some common questions and concerns. Pain Control When you leave the hospital, you should have a prescription for pain medication. Have it filled at a pharmacy near your home if it was not filled prior to discharge by [facility] Outpatient [facility]. Some patients experience nausea and/or vomiting from certain narcotics. If you get any of these side effects, call the office at the number listed above or call the main hospital ([phone]) and ask for the Acute Care Surgery Resident software consultant. A prescription for a different pain reliever can be called in to your pharmacist. (Please have the number of your pharmacy available). You may also try regularTylenol. Medication refills can be obtained from the office during business hours (Tuesday through Tuesday, 8:00 a.m. to 2:00 p.m.). Constipation is a frequent side effect of narcotic use. Please see instructions below for ways to help prevent constipation. Do not drive while on narcotic pain medication. Bowel Movements Your bowel movements may be irregular for several weeks. If you go for more than a couple of days without having a bowel movement, you may try to relieve the constipation by drinking warm prune juice, eating prunes, apples, apricots, raisins, or bran and water, or by taking an over the counter laxative such at MiraLAX Activity It is common after you first get home to feel very tired. This may last for several weeks. You willneed lots of rest. Check with your doctor if your job entails heavy physical exertion or if you have specific questions regarding when you should return to work You may do normal daily activities as you are able. This includes walking up and down stairs, walking outside the house, travelling as a passenger in a car, etc. Avoid strenuous activities, such as sports or weight lifting until your follow up visit. What to Watch For If any of the following occur in the first two weeks after you get home, call the General Surgery Office at the number listed above. ??? You feel as if you are getting sicker instead of better. ??? Pain becomes much worse than when you left the hospital. ??? The area around your incision develops green/yellow drainage, foul odor, bleeding, warmth, swelling, redness ??? Your temperature goes above 101.4??F (38.5??C). ??? You have vomiting that lasts more than one day. ??? You have severe diarrhea lasting more than three days. Seek Immediate Medical Attention at an Emergency Room for the following: ??? Loss of consciousness ??? Altered mental status/confusion ??? Chest pain/pressure/palpitations ??? Shortness of Breath ??? Severe pain FMLA/Short Term Disability/School Excuse Paperwork If you have paperwork that needs to be completed by your surgical team; please have it faxed to: THEE Michelle Division of Acute Care Surgery [phone] Or you may have it emailed to: [email or web address] MyChart: All of your medical records, test results, inpatient notes, upcoming appointments and prescription refills can be accessed via Music Messenger (MM). You may also message your treatment team for non urgent requests. If you have not signed up for Music Messenger (MM), ask your health care provider to send you the link. This is the best way to stay up to date on your healthcare. [email or web address] Signed: Gurinder Piña MD Internal Medicine Resident [facility] 07/28/2022 10:39 AM Associated attestation - Shelbi Vasques DO - 07/28/2022 4:09 PM CDT I have seen and examined the patient with the resident and I agree with the findings and plan of care as documented by the resident. Date of Service: 07/28/2022 Shelbi Vasques DO documented in this encounter Discharge Instructions * Discharge Instructions* Gurinder Alatorre MD - 07/27/2022 8:42 AM CDT [facility] ACUTE CARE SURGERY PATIENT DISCHARGE INSTRUCTIONS Date of admission: 07/25/2022 Date of discharge: 07/28/22 Admitting Diagnosis: partial bowel obstruction Primary surgical team: Acute Care Surgery Service Consultation teams: radiology Summary of Specific instructions for SHERI CANNON Diet: Resume your diet as tolerated. Activity: Resume your normal activities Bathing: Shower daily. 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 Call our office to schedule a follow-up appointment if one wasn't make for you prior to your discharge. The number is [phone]. Option 1 for General Surgery. Acute Care Surgery Clinic: [facility] Acute Care Surgery Clinic-[address] [place] [address] If you have questions or concerns: 1. Please call the general surgery office at [phone]. 2. You may also contact the Acute Care Surgery Nurse Practitioner, THEE Michelle at [phone]. Outside Business Hours Questions or Concerns 1. Please call [facility] Plaster Caster at [phone] and have the General Surgery software consultant resident paged. Medications: You have been provided a prescription for: Medication List START taking these medications polyethylene glycol 3350 17 GM/SCOOP powder Commonly known as: Miralax Take 17 (seventeen) g by mouth 2 times daily senna-docusate 8.6-50 MG tablet Commonly known as: Senokot-S Take 1 (one) tablet by mouth 2 times daily for 90 days CONTINUE taking these medications amLODIPine 10 MG tablet Commonly known as: Norvasc ketoconazole 2 % shampoo Commonly known as: Nizoral lisinopril 10 MG tablet Commonly known as: Prinivil; Zestril Take 1 (one) tablet by mouth once daily for 90 days montelukast 10 MG tablet Commonly known as: Singulair omeprazole 40 MG capsule Commonly known as: PriLOSEC pravastatin 40 MG tablet Commonly known as: Pravachol SALINE NASAL SPRAY NA SITagliptin 25 MG tablet Commonly known as: Januvia ASK your doctor about these medications acetaminophen 325 MG tablet Commonly known as: Tylenol Take 2 (two) tablets by mouth every 4 hours as needed for Fever or Pain Maximum allowable Acetaminophen amount = 4 Grams (4000 mg) / 24 hours. ONETOUCH DELICA PLUS 33G EXTRA FINE LANCET USE 1 LANCET TO PRICK FINGER TWICE DAILY BEFORE TESTING oxyCODONE (immediate release) 5 MG tablet Commonly known as: Roxicodone Take 1 (one) tablet by mouth every 6 hours as needed for Pain Where to Get Your Medications These medications were sent to [facility] #[id number] - [address] [facility] [address] [address], [facility] [address] lisinopril 10 MG tablet polyethylene glycol 3350 17 GM/SCOOP powder senna-docusate 8.6-50 MG tablet General Your full recovery will take some time. This handout covers some common questions and concerns. Pain Control When you leave the hospital, you should have a prescription for pain medication. Have it filled at a pharmacy near your home if it was not filled prior to discharge by [facility] Out[facility]. Some patients experience nausea and/or vomiting from certain narcotics. If you get any of these side effects, call the office at the number listed above or call the [facility] ([phone]) and ask for the Acute Care Surgery Resident software consultant. A prescription for a different pain reliever can be called in to your pharmacist. (Please have the number of your pharmacy available). You may also try regularTylenol. Medication refills can be obtained from the office during business hours (Tuesday through Tuesday, 8:00 a.m. to 2:00 p.m.). Constipation is a frequent side effect of narcotic use. Please see instructions below for ways to help prevent constipation. Do not drive while on narcotic pain medication. Bowel Movements Your bowel movements may be irregular for several weeks. If you go for more than a couple of days without having a bowel movement, you may try to relieve the constipation by drinking warm prune juice, eating prunes, apples, apricots, raisins, or bran and water, or by taking an over the counter laxative such at MiraLAX Activity It is common after you first get home to feel very tired. This may last for several weeks. You willneed lots of rest. Check with your doctor if your job entails heavy physical exertion or if you have specific questions regarding when you should return to work You may do normal daily activities as you are able. This includes walking up and down stairs, walking outside the house, travelling as a passenger in a car, etc. Avoid strenuous activities, such as sports or weight lifting until your follow up visit. What to Watch For If any of the following occur in the first two weeks after you get home, call the General Surgery Office at the number listed above. You feel as if you are getting sicker instead of better. Pain becomes much worse than when you left the hospital. The area around your incision develops green/yellow drainage, foul odor, bleeding, warmth, swelling, redness Your temperature goes above 101.4??F (38.5??C). You have vomiting that lasts more than one day. You have severe diarrhea lasting more than three days. Seek Immediate Medical Attention at an Emergency Room for the following: Loss of consciousness Altered mental status/confusion Chest pain/pressure/palpitations Shortness of Breath Severe pain FMLA/Short Term Disability/School Excuse Paperwork If you have paperwork that needs to be completed by your surgical team; please have it faxed to: Elvia Hawkins [facility] Division of Acute Care Surgery [phone] Or you may have it emailed to: [email or web address] MyChart: All of your medical records, test results, inpatient notes, upcoming appointments and prescription refills can be accessed via Music Messenger (MM). You may also message your treatment team for non urgent requests. If you have not signed up for Music Messenger (MM), ask your health care provider to send you the link. This is the best way to stay up to date on your healthcare. [email or web address] documented in this encounter Medications at Time of Discharge [...] by mouth once daily as needed 06/15/2022 polyethylene glycol 3350 (Miralax) 17 GM/SCOOP powder Take 17 (seventeen) g by mouth 2 times daily 850 g 2 07/28/2022 pravastatin (PRAVACHOL) 40 MG tablet Take 1 [...] BEFORE TESTING 100 Each 09/16/2021 10/08/2022 lisinopril (Prinivil; Zestril) 10 MG tablet Take 1 (one) tablet by mouth once daily for 90 days 30 tablet 2 07/28/2022 10/26/2022 oxyCODONE, immediate release, (Roxicodone) 5 MG tabletIndications:Ga llbladder polyp Take 1 (one) tablet by mouth every 6 hours as needed for Pain 10 tablet 07/13/2022 10/08/2022 senna-docusate (Senokot-S) 8.6-50 MG tablet Take 1 (one) tablet by mouth 2 times daily for 90 days 60 tablet 2 07/28/2022 10/26/2022 documented as of this encounter Progress Notes * Cherelle Martinez - 07/28/2022 8:08 AM CDT Internal Medicine MS3 Progress Note 07/28/2022 8:08 AM Patient: Sheri Cannon (:1995) Room: [facility] Admit Date: 07/25/2022. Hospital Day: 3 CC: abdominal pain and nausea Subjective: Interval History: No acute events overnight. Patient had diarrhea from the fluoroscopy dye until about midnight and has been passing gas since then. He denies any nausea. He continues to have some soreness in mid-abdomen near scar from previous abdominal surgeries. He is tolerating solid diet well. Hospital Course: Sheri Cannon is a 27 year old male with PMH of gastroschisis as a child, SBO 09/2021 s/p ex lap (managed conservatively), recent laparoscopic cholecystectomy on 07/13/22) who presents with acute GI illness and possible SBO. Surgery was consulted and had no concern for acute perforation, however CT showed partial small bowel obstruction and NG tube was placed for urgent decompression.Small bowel fluoroscopy on 07/27/22 did not show any obstruction and NG tube was removed. Review of Systems Constitutional: Negative for chills and fever. Respiratory: Negative for cough and shortness of breath. Cardiovascular: Negative for chest pain. Gastrointestinal: Positive for abdominal pain and diarrhea. Negative for nausea and vomiting. Genitourinary: Negative for hematuria. Neurological: Negative for dizziness and tingling. Objective: Patient Vitals for the past 6 hrs: Temp Pulse Resp BP BP Method 07/28/22 0757 98.8 ??F (37.1 ??C) 75 -- 132/93 -- 07/28/22 0421 97.8 ??F (36.6 ??C) 81 20 113/79 Automatic Intake/Output Summary (Last 24 hours) at 07/28/2022 0808 Last data filed at 07/27/2022 2350 Gross per 24 hour Intake 1170 ml Output -- Net 1170 ml Physical Exam: General: Well-appearing, A&Ox3, no acute distress. HEENT: Normocephalic and atraumatic. Neck: Supple, trachea is midline. Cardiac: RRR. Normal S1 and S2. No murmurs, rubs, or gallops. Pulmonary: CTAB while supine, no wheezes or crackles. No use of accessory breathing muscles. Abdominal: Soft, mildly tender, non-distended. Bowel sounds are present. No hepatomegaly, splenomegaly, or masses noted. Extremities: No clubbing, cyanosis, or edema noted. Neuro: No focal neurologic deficits noted. CN II-XII grossly intact. Moves all extremities spontaneously. Skin: Warm and dry. No rashes or lesions noted. Labs: CBC: Recent Labs Component Name 07/28/2224207/27/2225607/26/22343 WBC 8.6 8.2 11.2* HGB 12.7 12.2 12.4 PLTCOUNT 352 342 411* BMP: Recent Labs Component Name 07/28/2224207/27/2225607/26/22343 NA 144 141 136 POTASSIUM 3.8 3.9 4.0 CL 105 105 101 CO2 25 25 25 BUN 15 15 16 CREATININE 0.86 0.86 0.77 Recent Labs Component Name 07/28/2224207/27/2225623 0344 CALCIUM 9.4 9.3 9.4 MAGNESIUM 2.2 2.1 1.9 PHOS 4.2 3.8 4.0 LFT: Recent Labs Component Name 07/25/22 1754 03/21/22 0606 03/20/22 0428 03/18/22 0419 03/17/22 0341 09/15/21 1848 PROT 8.2 - - - 8.2 7.7 ALB 4.2 3.6 3.5 - 4.1 3.7 ALKPHOS 120 - - - 113 80 AST 20 - - - 17 22 ALT 55 - - - 40 47 - = values in this interval not displayed. Coagulation: Recent Labs Component Name 07/25/22 1657 PT 12.7 INR 1.0 Cardiac markers: No results for input(s): CKTOTAL, CKMB, TROPONINI in the last 84341 hours. ABG:No results for input(s): PHART, IPA7IUZ, PO2ART, LKL4KGH, BASEEXCESS in the last 40889 hours. Invalid input(s): SO2ABG, FOHBABG UA:@EPUA@ Imaging: PROCEDURE: FL SMALL BOWEL SERIES, DATE/TIME OF EXAM: 07/27/2022 2:26 PM, LOCATION [facility] ?? IMPRESSION: ?? No evidence of small bowel bowel obstruction. 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 #Small bowel obstruction, resolved Assessment: ?? Possibly due to recent cholecystectomy given past history of SBO ?? Small bowel series normal, no SBO noted Plan: ?? Normal diet ?? Compazine inj 10mg Q6H PRN for nausea/vomiting ?? Toradol inj 15mg Q6H PRN for moderate/severe pain ?? Tylenol 650mg Q4H PRN for moderate pain ?? F/u surgery outpatient for recurrent SBO #Hypertension ?? Continue home amlodipine 10mg QD and lisinopril 40mg QD #DMII ?? SSI humalog 100u/ml 0-6 #Leukocytosis, resolved ?? Likely reactive, low concern for infection Consults: surgery F/E/N: Diet: clear liquid Lytes: Keep K~4, P~3, Mg~2 IVF: n/a Lines: peripheral IV L wrist DVT Prophylaxis: lovenox inj 40mg SQ QD Code: full Dispo: d/c today This patient was discussed with Dr. Vasques, internal medicine attending. Cherelle Martinez, MS3 Associated attestation - Shelbi Vasques DO - 07/28/2022 4:04 PM CDT This note is for educational purposes. Please see resident/attending note from today. Shelbi Vasques DO 07/28/22 * Gurpreet Klein DO - 07/28/2022 6:12 AM CDT OK to DC from ACS perspective now with JI. Can follow up in clinic to discuss his recurrent SBO. Call with questions. Gurpreet Klein DO General Surgery Resident PGY-5 [facility] July 28, 2022 6:13 AM * Irma Alvarez RN - 07/27/2022 10:51 PM CDT Problem: Pain/Discomfort Goal: Patient exhibits reduced pain/discomfort as evidenced by pain scores Outcome: Progressing Goal: Patient uses pharmacological and non-pharmacological pain management strategies. Outcome: Progressing Goal: Patient verbalizes acceptable level of pain relief and ability to engage in desired activity. Outcome: Progressing Problem: Ineffective breathing pattern related to obstructive sleep apnea Goal: Maintains optimal sleep pattern, as evidenced by relaxed breathing at normal rate and depth. Outcome: Progressing Goal: Adheres to CPAP (Continuous Positive Airway Pressure) device regimen as prescribed. Outcome: Progressing Problem: Sleep deprivation related to sleep apnea. Goal: Achieves restful, refreshing sleep pattern. Outcome: Progressing * Gurinder Alatorre MD - 07/27/2022 6:40 PM CDT [facility] INTERNAL MEDICINE PROGRESS NOTE Patient: Sheri Cannon Sex: male Age: [age] year old Date of : 1995 Date of Admission: 07/25/2022 Date: 07/27/2022 LOS: 2 SUBJECTIVE Interval History: No acute events overnight. Pt much improved clinically. Small bowel follow through with no concernsfor obstruction. NG tube removed. OK to ADAT per ACS. Hospital Course: Sheri Cannon is a 27 year old male with a PMHx of gastroschisis with repair in infancy, SBO 10/04 s/p ex lap and resection of mid-terminal ileum, and most recently, lap kirstie on 07/13 who presented to EDwith abdominal pain found to have a partial obstruction on CT. ACS was consulted and placed NGT to LITS for decompression. Pt improved significantly over the day. On 07/27, he had a small bowel followthrough which showed no signs of obstruction after which his NGT was removed and his diet was advanced. Pt tolerating PO intake well. OBJECTIVE Vital Signs: Vitals: 07/27/22 0405 07/27/22 0725 07/27/22 1159 07/27/22 1556 BP: 123/81 137/89 128/87 128/91 Pulse: 71 77 90 99 Resp: 18 18 20 Temp: 98.3 ??F (36.8 ??C) 97.4 ??F (36.3 ??C) 98.2 ??F (36.8 ??C) 98.1 ??F (36.7 ??C) SpO2: 96% 94% 96% 94% Weight: Height: Temp Min: 97.4 ??F (36.3 ??C) Max: 98.3 ??F (36.8 ??C), Pulse Min: 71 Max: 110, Resp Min: 16 Max: 20, BP Min: 104/87 Max: 163/92 Intake & Output: In: 164.1 [I.V.:164.1] Out: 1200 [Urine:700; Drains:500] Physical Exam: General: Alert and oriented to person, place, time and situation, no acute distress, obese. Neck: No JVD or cartoid bruit. Trachea midline. Heart: RRR, Normal S1 and S2. No murmurs appreciated. Chest: Normal breath sounds, no wheezes or rhonchi Abdomen: Soft, tender, non-distended, bowel sounds present, multiple scars present notable for big scar at midline and smaller incisions consistent with lap kirstie port sites Extremities: No lower extremity edema, 2+ distal peripheral pulses, R arm with weakness in upper arm supported by blankets and pillows Neuro: No focal deficits noted Intake/Output Summary (Last 24 hours) at 07/27/2022 1840 Last data filed at 07/27/2022 1505 Gross per 24 hour Intake 664.05 ml Output 1400 ml Net -735.95 ml Current Medications: Scheduled: ??? [START ON 07/28/2022] amLODIPine 10 mg Oral QDAY ??? enoxaparin 40 mg Subcutaneous QDAY ??? insulin aspart 0-6 Units Subcutaneous q4h ??? iopamidol 30 mL Oral Contrast - Once ??? iopamidol Intravenous Contrast - Once ??? [START ON 07/28/2022] lisinopril 40 mg Oral QDAY ??? montelukast 10 mg Oral AT BEDTIME ??? pantoprazole EC 40 mg Oral QDAY ??? patient supplied medication 1 drop Each Eye QDAY ??? pravastatin 40 mg Oral QPM Continuous: PRN: ??? acetaminophen ??? dextrose IV for hypoglycemia OR dextrose IV for hypoglycemia ??? glucagon ??? glucose (Diabetic Use) ??? glucose (Diabetic Use) gel ??? glucose chew tab Significant Lab Results: Recent Labs Component Name 07/27/22 02507/26/22 0344 07/25/22 1630 WBC 8.2 11.2* 14.9* HGB 12.2 12.4 14.4 HCT 38.1 38.6 44.5 PLTCOUNT 342 411* 477* Recent Labs Component Name 07/27/22 0257 07/26/22 0344 07/25/22 1754 POTASSIUM 3.9 - 4.0 CO2 25 - 24 BUN 15 - 13 CREATININE 0.86 - 0.68* CALCIUM 9.3 - 10.1 ALT - - 55 AST - - 20 GLUCOSE 95 - 126* - = values in this interval not displayed. Microbiology: n/a Imaging & Studies: XR ABDOMEN KUB Result Date: 07/25/2022 IMPRESSION: Stool in the distal colon. Multiple small bowel air-fluid levels without significant small bowel distention. Recommend clinical correlation with constipation. Report dictated by Uche Hensley MD (radiology clerk). ISabra MD have personally reviewed and interpreted this examination/study. > Interpreting Provider: Sabra Tracy MD on 07/25/2022 11:[address] ABDOMEN PELVIS W CONTRAST Result Date: 07/25/2022 IMPRESSION Mild borderline dilatation of small bowel loops in the right hemiabdomen. No discrete transition point however suggestion of mild narrowing at the anastomosis. Findings may represent partial obstruction. These findings are not significantly changed since prior CT dated 09/15/2021. The ileocecal valve is located in the left lower quadrant. This report was drafted by Dr. Robin Lundberg MD. (vice president talent management). I, Adriel Rosen MD have personally reviewed and interpreted this examination/study. > Interpreting Provider: Adriel Rosen MD on 07/25/2022 11:14 PM FL SMALL BOWEL SERIES Result Date: 07/27/2022 IMPRESSION: No evidence of small bowel bowel obstruction. > Interpreting Provider: Ginette Wellington MD on 07/27/2022 2:27 PM ASSESSMENT & PLAN #Bowel obstruction Hx of multiple bowel surgeries due to gastroschisis and prior bowel obstructions, most recently Mayrequiring surgery and in Nov (not requiring surg). Plan: -ACS consulted, appreciate recs -NGT out -ADAT ?? #Hypertension (HTN) No evidence of new target-organ dysfunction related to HTN. Past 24 hrs: Blood pressure control: adequate. Plan: -Serial monitoring of blood pressure. -Continue home amlodipine -Continue home lisinopril ?? #Type 2 diabetes mellitus (T2DM) Long-term glycemic control unknown. Past 24 hrs: Glycemic control: adequate; Plan: -Daily assessment of glycemic control and modification of insulin regimen to maintain serum glucoselevel 140-180 mg/dL. -Follow up on pending HbA1c to evaluate long-term glycemic control. 0-6 SSI ?? #Leukocytosis Low concern for infection, likely reactive. Plan: -CTM ?? GERD: Continue home omeprazole Hyperlipidemia: Continue home pravastatin Obstructive sleep apnea: Home CPAP Nausea: Compazine PRN Code: Full Code Diet: DIET REGULAR Electrolytes: Replete PRN to K ~4, Mg ~2 and Phos ~3 PPx: Lovenox Access: Peripheral IV Left Wrist (Active) Placement Date/Time: 07/25/22 1630 Orientation: Left Location: Wrist IV Catheter Size: (c) 22 GaugeProcedure Tolerance: Well Blood Specimens obtained?: Yes Number of days: 2 Dispo: Home on dc The above assessment and plan will be discussed with the attending. This note is not final until attested by attending physician. GURINDER PIÑA MD Internal Medicine Resident [facility] 07/27/2022 6:40 PM Associated attestation - Shelbi Vasques DO - 07/28/2022 4:00 PM CDT I have seen and examined the patient with the resident and I agree with the findings and plan of care as documented by the resident. Active Problem List History of gastroschisis POA: Yes S/P small bowel resection POA: Yes S/P exploratory laparotomy POA: Yes Partial small bowel obstruction (CMS/HCC) POA: Yes Date of Service: 07/27/2022 Shelbi Vasques DO * Jayesh Banks, RN - 07/27/2022 2:33 PM CDT Case Management Initial Assessment Anticipated Discharge Date: 07/28/22 Transportation at Discharge: Friend Anticipated level of care at discharge: Home Anticipated level of care provider: None Prior to admission level of care: Home Prior to admit provider: None Discharge Goals and Plans: Plans: No discharge needs identified at this time. Consult Case Management if discharge planning needs arrise. Comments: 27 year old male with Gastroschisis as childhood, admitted 07/25 for management of his diabetes, hypertension and SBO. 07/27 NGT removed. Lives with: Significant Other and child Physical Limitations: None Requires Assistance With: None Preferred Pharmacy: [facility] - [address] [facility] [id number] [address] [facility] [id number] Advance Directive: No Advance Directive Information Given: Refused Information Would you like assistance on completing and executing or revising an Advance Directive?: No READMISSION RISK SCORE is 14 at 4:20 PM 07/27/2022. Met with patient and significant other Family Support (name and phone): Extended Emergency Contact Information Primary Emergency Contact: Lizeth Cannon Address: [address] [place] [address] Relation: Other Secondary Emergency Contact: Mary Montes De Oca Mobile Relation: Significant other Patient or unit support representative requests care coordination reach out to family or caregiver listed above regarding discharge planning and at time of discharge? No Patient/Family provided with list of resources? Unknown Preferred Provider / High Quality Network List given?: Unknown Reason for provider choice: Unknown Equipment at Home: CPAP List DME pt. requires but does not have.: None Dj Instructor Referral: No Will continue to follow. For any questions or needs please contact: [employer] Name/Phone number: Jayesh Banks RN [phone] * Cherelle Martinez - 07/27/2022 1:31 PM CDT Internal Medicine MS3 Progress Note 07/27/2022 1:32 PM Patient: Sheri Cannon (:1995) Room: [facility] Admit Date: 07/25/2022. Hospital Day: 2 CC: abdominal pain and nausea Subjective: Interval History: No acute events overnight. Patient has been passing gas and nausea is decreased. He denies any bowel movements overnight but did have bowel movements yesterday. He continues to have some soreness in mid-abdomen near scar from previous abdominal surgeries. 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 Surgery was consulted and had no concern for acute perforation, however CT showed partial small bowel obstruction and NG tube was placed for urgent decompression. Review of Systems Constitutional: Negative for chills and fever. Respiratory: Negative for cough and shortness of breath. Cardiovascular: Negative for chest pain. Gastrointestinal: Positive for abdominal pain. Negative for nausea and vomiting. Neurological: Negative for dizziness. Objective: Patient Vitals for the past 6 hrs: Temp Pulse Resp BP BP Method 07/27/22 1159 98.2 ??F (36.8 ??C) 90 18 128/87 Automatic Intake/Output Summary (Last 24 hours) at 07/27/2022 1332 Last data filed at 07/27/2022 0737 Gross per 24 hour Intake 164.05 ml Output 1400 ml Net -1235.95 ml Physical Exam: General: Well-appearing, A&Ox3, no acute distress. HEENT: Normocephalic and atraumatic, NG tube in place. Neck: Supple, trachea is midline. Cardiac: RRR. Normal S1 and S2. No murmurs, rubs, or gallops. Pulmonary: CTAB, no wheezes or crackles. No use of accessory breathing muscles. Abdominal: Soft, mildly tender, non-distended. Bowel sounds are present. No hepatomegaly, splenomegaly, or masses noted. Extremities: No clubbing, cyanosis, or edema noted. Neuro: No focal neurologic deficits noted. CN II-XII grossly intact. Moves all extremities spontaneously. Skin: Warm and dry. No rashes or lesions noted. Labs: CBC: Recent Labs Component Name 07/27/2225607/26/2234307/25/22 1630 WBC 8.2 11.2* 14.9* HGB 12.2 12.4 14.4 PLTCOUNT 342 411* 477* BMP: Recent Labs Component Name 07/27/2225607/26/22 0344 07/25/22 1754 NA 141 136 139 POTASSIUM 3.9 4.0 4.0 CL 105 101 104 CO2 25 25 24 BUN 15 16 13 CREATININE 0.86 0.77 0.68* Recent Labs Component Name 07/27/22 02507/26/22 0344 07/25/22 1754 06/29/22 1504 03/21/22 0606 CALCIUM 9.3 9.4 10.1 - 9.3 MAGNESIUM 2.1 1.9 - - 2.1 PHOS 3.8 4.0 - - 3.7 - = values in this interval not displayed. LFT: Recent Labs Component Name 07/25/22 1754 03/21/22 0606 03/20/22 0428 03/18/22 0419 03/17/22 0341 09/15/21 1848 PROT 8.2 - - - 8.2 7.7 ALB 4.2 3.6 3.5 - 4.1 3.7 ALKPHOS 120 - - - 113 80 AST 20 - - - 17 22 ALT 55 - - - 40 47 - = values in this interval not displayed. Coagulation: Recent Labs Component Name 07/25/22 1657 PT 12.7 INR 1.0 Cardiac markers: No results for input(s): CKTOTAL, CKMB, TROPONINI in the last 31649 hours. ABG:No results for input(s): PHART, OJU1YYB, PO2ART, OJC1NZZ, BASEEXCESS in the last 73279 hours. Invalid input(s): SO2ABG, FOHBABG UA:@EPUA@ Imaging: Small bowel fluoroscopy series 07/27/22, not resulted at the time of this note. 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 #Small bowel obstruction Assessment: ?? Possibly due to recent cholecystectomy given past history of SBO Plan: ?? NG tube decompression ?? Small bowel series ?? If obstruction is resolved, consult surgery for removal of NG tube during PM rounds and increasediet ?? If obstruction is not resolved, continue NG decompression ?? Compazine inj 10mg Q6H PRN for nausea/vomiting ?? Toradol inj 15mg Q6H PRN for moderate/severe pain ?? Tylenol 650mg Q4H PRN for moderate pain #Hypertension ?? Continue home amlodipine 10mg QD and lisinopril 40mg QD #DMII ?? SSI humalog 100u/ml 0-6 #Leukocytosis, resolved ?? Likely reactive, low concern for infection Consults: surgery F/E/N: Diet: clear liquid Lytes: Keep K~4, P~3, Mg~2 IVF: n/a Lines: peripheral IV L wrist DVT Prophylaxis: lovenox inj 40mg SQ QD Code: full Dispo: inpatient This patient was discussed with Dr. Vasques, internal medicine attending. Cherelle Martinez, MS3 Associated attestation - Shelbi Vasques DO - 07/27/2022 4:36 PM CDT This note is for educational purposes. Please see resident/attending note from today. Shelbi Vasques DO 07/27/22 * Leslie Bal RN - 07/27/2022 10:18 AM CDT Problem: Pain/Discomfort Goal: Patient exhibits reduced pain/discomfort as evidenced by pain scores Outcome: Progressing Goal: Patient uses pharmacological and non-pharmacological pain management strategies. Outcome: Progressing Goal: Patient verbalizes acceptable level of pain relief and ability to engage in desired activity. Outcome: Progressing Problem: Ineffective breathing pattern related to obstructive sleep apnea Goal: Maintains optimal sleep pattern, as evidenced by relaxed breathing at normal rate and depth. Outcome: Progressing Goal: Adheres to CPAP (Continuous Positive Airway Pressure) device regimen as prescribed. Outcome: Progressing Problem: Sleep deprivation related to sleep apnea. Goal: Achieves restful, refreshing sleep pattern. Outcome: Progressing Problem: Fall Risk Goal: Fall risk and fall related injury risk are minimized (interventions related to the fall risk can be found in the flowsheet documentation) Outcome: Progressing * Akhil Gross DO - 07/27/2022 8:00 AM CDT ACUTE CARE SURGERY PROGRESS NOTE ADMIT: 07/25/2022 4:40 PM LOS: 2 days 07/27/2022 RECENT EVENTS: Patient has been HDS, afebrile, reported passing flatus overnight. Bilious output from NGT and mild distention and minimal tenderness. Reports no appetite. EXAM: Blood pressure 137/89, pulse 77, temperature 97.4 ??F (36.3 ??C), temperature source Oral, resp. rate 18, height 1.803 m (5' 11 ), weight 120.2 kg (265 lb), SpO2 94 %. Temp: [97.4 ??F (36.3 ??C)-98.3 ??F (36.8 ??C)] 97.4 ??F (36.3 ??C) Pulse: [71-85] 77 Resp: [16-18] 18 BP: (104-148)/(70-99) 137/89 DIET: DIET NPO Except: NO EXCEPTIONS Ins/Outs: 07/26 0701 - 07/27 0700 In: 164.1 [I.V.:164.1] Out: 1000 [Urine:700; Drains:300] Physical Exam Gen: NAD HEENT: AT/NC, EOMI, oropharynx clear CV: RRR Pulm: Nonlabored respirations Abd: Midline scar appears well healed no palpable ventral hernias, Soft, moderately distended, tender along periumbilical region. Recent laparoscopic incision c/d/i. MSK: WWP, no c/c/e Neuro: Moving all extremities, no focal deficits Psych: Appropriate mood and affect RECENT LABS: Recent Labs Component Name 07/27/22 02507/26/22 0344 07/25/22 1630 WBC 8.2 11.2* 14.9* HGB 12.2 12.4 14.4 HCT 38.1 38.6 44.5 MCV 80.5* 80.4* 81.1 Recent Labs Component Name 07/27/22 0257 07/26/22 0344 07/25/22 1754 06/29/22 1504 03/21/22 0606 NA 141 136 139 - 140 CL 105 101 104 - 107 CO2 25 25 24 - 23 BUN 15 16 13 - 11 CREATININE 0.86 0.77 0.68* - 0.82 CALCIUM 9.3 9.4 10.1 - 9.3 MAGNESIUM 2.1 1.9 - - 2.1 PHOS 3.8 4.0 - - 3.7 - = values in this interval not displayed. Recent Labs Component Name 07/25/22 1754 03/21/22 0606 03/20/22 0428 03/18/22 0419 03/17/22 0341 09/15/21 1848 PROT 8.2 - - - 8.2 7.7 ALB 4.2 3.6 3.5 - 4.1 3.7 TBILI 0.8 - - - 1.0 1.2 AST 20 - - - 17 22 ALT 55 - - - 40 47 ALKPHOS 120 - - - 113 80 - = values in this interval not displayed. Recent Labs Component Name 07/25/22 1657 INR 1.0 ASSESSMENT: Sheri Cannon is a 27 year old male with Gastroschisis as childhood, small bowel obstruction in 09/2021 s/p ex lap, then SBO managed conservatively, recent laparoscopic cholecystectomy (07/13/22) who presented following an acute viral gastrointestinal illness with imaging, and symptoms consistent with partial SBO. Patient is currently admitted to medicine team for management of his diabetes, hypertension and SBO. PLAN: - Plan for small bowel follow through today (ordered) - If contrast passes to patients colon then OK to remove NG tube and advance diet - Continue IVF and electrolyte replacements as contrast can cause diarrhea - Surgery will plan to reevaluate patient on PM rounds for NGT removal Staff: Dr. Vladimir Gross DO 07/26/2022 8:00 AM General Surgery PGY3 I respond to [employer] Chat when on-call and able. Associated attestation - Ananda Gilbert DO - 07/30/2022 12:55 PM CDT I examined patient with resident team on the date of service. I agree with above note and plan. Ananda Gilbert DO * Akhil Gross DO - 07/26/2022 8:56 AM CDT ACUTE CARE SURGERY PROGRESS NOTE ADMIT: 07/25/2022 4:40 PM LOS: 1 day 07/26/2022 RECENT EVENTS: Patient has been HDS, afebrile, reports passing two bowel movements overnight. High output from NGT and mild distention and minimal tenderness. Reports no appetite. EXAM: Blood pressure 119/76, pulse 88, temperature 97.5 ??F (36.4 ??C), resp. rate 16, height 1.803 m (5'11 ), weight 120.2 kg (265 lb), SpO2 94 %. Temp: [97.5 ??F (36.4 ??C)] 97.5 ??F (36.4 ??C) Pulse: [88-110] 88 Resp: [16-18] 16 BP: (119-163)/(76-100) 119/76 DIET: DIET NPO Except: NO EXCEPTIONS Ins/Outs: 07/25 0701 - 07/26 0700 In: - Out: 200 [Drains:200] Physical Exam Gen: NAD HEENT: AT/NC, EOMI, oropharynx clear CV: RRR Pulm: Nonlabored respirations Abd: Midline scar appears well healed no palpable ventral hernias, Soft, moderately distended, tender along periumbilical region. Recent laparoscopic incision c/d/i. MSK: WWP, no c/c/e Neuro: Moving all extremities, no focal deficits Psych: Appropriate mood and affect RECENT LABS: Recent Labs Component Name 07/26/22 03407/25/22 1630 06/29/22 1504 WBC 11.2* 14.9* 9.6 HGB 12.4 14.4 13.5 HCT 38.6 44.5 41.7 MCV 80.4* 81.1 81.0 Recent Labs Component Name 07/26/22 0344 07/25/22 1754 06/29/22 1504 03/21/22 0606 03/20/22 0428 NA 136 139 139 140 144 CL 101 104 105 107 109* CO2 25 24 23 23 19* BUN 16 13 11 11 10 CREATININE 0.77 0.68* 0.63* 0.82 0.97 CALCIUM 9.4 10.1 9.7 9.3 9.2 MAGNESIUM 1.9 - - 2.1 2.1 PHOS 4.0 - - 3.7 4.5 Recent Labs Component Name 07/25/22 1754 03/21/22 0606 03/20/22 0428 03/18/22 0419 03/17/22 0341 09/15/21 1848 PROT 8.2 - - - 8.2 7.7 ALB 4.2 3.6 3.5 - 4.1 3.7 TBILI 0.8 - - - 1.0 1.2 AST 20 - - - 17 22 ALT 55 - - - 40 47 ALKPHOS 120 - - - 113 80 - = values in this interval not displayed. Recent Labs Component Name 07/25/22 1657 INR 1.0 ASSESSMENT: Sheri Cannon is a 27 year old male with Gastroschisis as childhood, small bowel obstruction in 09/2021 s/p ex lap, then SBO managed conservatively, recent laparoscopic cholecystectomy (07/13/22) who presented following an acute viral gastrointestinal illness with imaging, and symptoms consistent with partial SBO. Patient is currently admitted to medicine team for management of his diabetes, hypertension and SBO. PLAN: - NGT LIWS still has high output, recommend leaving NGT for re-evaluation this evening or tomorrow. - Continue bowel rest NPO and IVF Staff: Dr. Vladimir Gross, 07/26/2022 9:05 AM General Surgery PGY3 I respond to Epic Chat when on-call and able. Associated attestation - Ananda Gilbert DO - 07/30/2022 12:54 PM CDT I examined patient with resident team on the date of service. I agree with above note and plan. Ananda Gilbert DO documented in this encounter H&P Notes * Cedric Love MD - 07/25/2022 10:32 PM CDT [facility] INTERNAL MEDICINE HISTORY & PHYSICAL NOTE Date of Admission: 07/25/2022 Patient: Sheri Cannon Sex: male Age: [age] year old Date of : 1995 Code Status: Prior ASSESSMENT & PLAN In summary, the patient is a 27 year old male with a history of gastroschisis s/p repair, multiple prior abdominal surgeries, T2DM, KARRIE and GERD who presents with acute abdominal pain and nausea, is found to have imaging consistant with partial obstruction Patient Active Problem List: History of gastroschisis Allergic rhinitis Arthrogryposis Controlled type 2 diabetes mellitus without complication, without long-term current use of insulin (CMS/HCC) Deviated nasal septum Elbow problem Essential hypertension, benign Gallbladder polyp Gastroesophageal reflux disease without esophagitis Hypertrophy of nasal turbinates Insomnia Mixed hyperlipidemia Nonalcoholic steatohepatitis KARRIE (obstructive sleep apnea) Pure hypercholesterolemia S/P small bowel resection S/P exploratory laparotomy Partial small bowel obstruction (CMS/HCC) Leukocytosis Abdominal pain, generalized Bowel obstruction Hx of multiple bowel surgeries due to gastroschisis and prior bowel obstructions, most recently Mayrequiring surgery and in Nov (not requiring surg). Plan: ACS consulted, appreciate recs NG decompression Tap water enema Dulcolax suppository Hypertension (HTN) No evidence of new target-organ dysfunction related to HTN. Past 24 hrs: Blood pressure control: adequate. Plan: Serial monitoring of blood pressure. Continue home amlodipine Continue home lisinopril Type 2 diabetes mellitus (T2DM) Long-term glycemic control unknown. Past 24 hrs: Glycemic control: adequate; Plan: Daily assessment of glycemic control and modification of insulin regimen to maintain serum glucose level 140-180 mg/dL. Follow up on pending HbA1c to evaluate long-term glycemic control. 0-6 SSI Leukocytosis Low concern for infection, likely reactive. Plan: CTM GERD: Continue home omeprazole Hyperlipidemia: Continue home pravastatin Obstructive sleep apnea: Home CPAP Nausea: Compazine PRN FEN: DIET NPO Except: NO EXCEPTIONS GI PPx: PPI po DVT PPx: Enoxaparin Activity: Bedrest LDA: PIV Disposition: Admit to medicine Code Status: Full Code SUBJECTIVE Chief Complaint: Chief Complaint Patient presents with ??? Pain Abdominal 27 y/o male to ED w/ abdominal pain since this AM; PMHx includes multiple bowel obstruction, cholecystectomy on 07/13, and bowel resection 09/2021. Says pain he is having is similar to how he presented with obstructions. LBM was this AM. History of Present Illness: Sheri Cannon is a 27 year old male with a PMH of HTN, T2DM, HLD, KARRIE and gastroschisis who present toED with abdominal pain found to have a partial obstruction on CT. Abdominal pain since this AM; PMHx includes multiple bowel obstruction, cholecystectomy on 07/13, and bowel resection 09/2021. Says pain he is having is similar to how he presented with obstructions.LBM was this AM. Not passing gas. Onset of symptoms was gradual with gradually worsening course since that time. The pain is located epigastric without radiation. The pain is intermittent with waves of intense pain. The pain is made worse by nothing and is relieved by nothing. The patient also complains of nausea. The patient denies vomiting, diarrhea, constipation, melena, coffee ground emesis, hematemesis, hematochezia, fever, chills. The pertinent past history includes multiple bowel surgeries most recently 09/2021 s/p ex lap, resection of mid-terminal ileum and laparoscopic cholecystectomy by Dr. Miles on 07/13/22 In the ED radiological images were obtained through a CT A/P concerning for partial obstruction. Pertinent labs. CBC: leukocytosis 14.9 , thrombocythemia 477, VS: WNL Review of Systems: Review of Systems Constitutional: Positive for diaphoresis. HENT: Negative. Eyes: Negative. Respiratory: Negative. Cardiovascular: Negative. Gastrointestinal: Positive for abdominal pain and nausea. Negative for blood in stool, constipation, diarrhea, heartburn, melena and vomiting. Genitourinary: Negative. Musculoskeletal: Negative. Skin: Negative. Neurological: Negative. Endo/Heme/Allergies: Negative. Psychiatric/Behavioral: Negative. Medical and Surgical History Past Medical History: Diagnosis Date ??? Arthrogryposis 06/15/2021 ??? Controlled type 2 diabetes mellitus without complication, without long-term current use of insulin ([facility]) 06/16/2021 last A1C 5.6 1 month ago ??? Essential hypertension controlled with medication ??? GERD (gastroesophageal reflux disease) controlled with medication ??? 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 KARRIE (obstructive sleep apnea) 09/12/2021 Past Surgical History: Procedure Laterality Date ??? Cholecystectomy, Laparoscopic N/A 07/13/2022 N/A; LAPAROSCOPIC CHOLECYSTECTOMY ??? Laparotomy N/A 09/17/2021 N/A; LAPAROTOMY EXPLORATORY, BOWEL RESECTION, ENTROLYSIS ??? Septoplasty Bilateral 2019 ??? Small Bowel Resection Current Outpatient Medications Medication Instructions ??? acetaminophen (TYLENOL) 650 mg, Oral, EVERY 4 HOURS PRN, Maximum allowable Acetaminophen amount= 4 Grams (4000 mg) / 24 hours. ??? amLODIPine (NORVASC) 10 mg, Oral, DAILY ??? ketoconazole (Nizoral) 2 % shampoo Topical, TWO TIMES WEEKLY ??? Lancets (ONETOUCH DELICA PLUS 33G EXTRA FINE LANCET) USE 1 LANCET TO PRICK FINGER TWICE DAILY BEFORE TESTING ??? lisinopril (PRINIVIL; ZESTRIL) 40 mg, Oral, DAILY ??? montelukast (SINGULAIR) 10 mg, Oral, AT BEDTIME ??? omeprazole (PRILOSEC) 40 mg, Oral, DAILY PRN ??? oxyCODONE (immediate release) (ROXICODONE) 5 mg, Oral, EVERY 6 HOURS PRN ??? pravastatin (PRAVACHOL) 40 MG tablet 1 tablet, Oral, EVERY EVENING ??? SALINE NASAL SPRAY NA Nasal ??? senna-docusate (Senokot-S) 8.6-50 MG tablet 1 tablet, Oral, 2 TIMES DAILY PRN ??? SITagliptin (JANUVIA) 25 mg, Oral, DAILY No Known Allergies Social and Family Medical History Social History Socioeconomic History ??? Marital status: Single Spouse name: Not on file ??? Number of children: Not on file ??? Years of education: Not on file ??? Highest education level: Not on file Occupational History ??? Not on file Tobacco Use ??? Smoking status: Never ??? Smokeless tobacco: Former Types: Chew Quit date: 09/15/2020 Vaping Use ??? Vaping Use: Never used Substance and Sexual Activity ??? Alcohol use: Yes Comment: occ ??? Drug use: Never ??? Sexual activity: Not on file Other Topics Concern ??? Not on file Social History Narrative ??? Not on file Social Determinants of Health Financial Resource Strain: Not on file Food Insecurity: No Food Insecurity ??? Worried About Running Out of Food in the Last Year: Never true ??? Ran Out of Food in the Last Year: Never true Transportation Needs: Not on file Stress: Not on file Housing Stability: Not on file No family history on file. Home Medications: No current facility-administered medications on file prior to encounter. Current Outpatient Medications on File Prior to Encounter Medication Sig Dispense Refill ??? acetaminophen (Tylenol) 325 MG tablet Take 2 (two) tablets by mouth every 4 hours as needed forFever or Pain Maximum allowable Acetaminophen amount = 4 Grams (4000 mg) / 24 hours. 30 tablet 0 ??? amLODIPine (NORVASC) 10 MG tablet Take [...] by mouth once daily as needed ??? oxyCODONE, immediate release, (Roxicodone) 5 MG tablet Take 1 (one) tablet by mouth every 6 hours as needed for Pain 10 tablet 0 ??? pravastatin (PRAVACHOL) 40 MG tablet Take 1 (one) tablet by mouth every evening ??? SALINE NASAL SPRAY NA ??? senna-docusate (Senokot-S) 8.6-50 MG tablet Take 1 (one) tablet by mouth 2 times daily as needed for Constipation ??? SITagliptin (JANUVIA) 25 MG tablet Take 1 (one) tablet by mouth once daily Current Medications: Scheduled: ??? [START ON 07/26/2022] amLODIPine 10 mg Oral QDAY ??? bisacodyl 10 mg Rectal Once ??? [START ON 07/26/2022] enoxaparin 40 mg Subcutaneous QDAY ??? [START ON 07/26/2022] insulin aspart 0-6 Units Subcutaneous q4h ??? iopamidol Intravenous Contrast - Once ??? [START ON 07/26/2022] lisinopril 40 mg Oral QDAY ??? montelukast 10 mg Oral AT BEDTIME ??? [START ON 07/26/2022] pravastatin 40 mg Oral QPM Continuous: PRN: OBJECTIVE Vital Signs: Temp: [97.5 ??F (36.4 ??C)] 97.5 ??F (36.4 ??C) Pulse: [90-110] 90 Resp: [16-18] 16 BP: (121-143)/(88-100) 142/88 Physical Exam: General: alert and oriented, no acute distress, pleasant and cooperative Head: normocephalic, atraumatic Eyes: conjunctivae clear, extraocular muscles intact Mouth/Throat: oropharynx clear with no lesions, moist mucous membranes Neck: no jugular venous distension, no cervical lympadenopathy, good range of motion CV: regular rate and rhythm, no murmurs appreciated Resp: clear to auscultation bilaterally, no wheezes or crackles heard Abd: soft, tender, distended, normoactive bowel sounds, multiple scars present Extremities: no lower extremity edema, no cyanosis Skin: skin color and turgor normal, no rashes or lesions noted Neuro: moving all extremities well, no focal deficits Lab Results: CBC: Recent Labs Component Name 07/25/22 1630 06/29/22 1504 03/21/22 0606 WBC 14.9* 9.6 6.7 HGB 14.4 13.5 13.1 HCT 44.5 41.7 40.5 MCV 81.1 81.0 81.5 Coagulation Panel: Recent Labs Component Name 07/25/22 1657 PT 12.7 INR 1.0 BMP: Recent Labs Component Name 07/25/22 1754 06/29/22 1504 03/21/22 0606 NA 139 139 140 POTASSIUM 4.0 4.0 4.0 CL 104 105 107 CO2 24 23 23 BUN 13 11 11 CREATININE 0.68* 0.63* 0.82 CALCIUM 10.1 9.7 9.3 Recent Labs Component Name 03/21/22 0606 03/20/22 0428 03/19/22 0321 MAGNESIUM 2.1 2.1 2.1 Recent Labs Component Name 03/21/22 0606 03/20/22 0428 03/19/22 0321 PHOS 3.7 4.5 3.9 Hepatic Panel: Recent Labs Component Name 07/25/22 1754 03/21/22 0606 03/20/22 0428 03/18/22 0419 03/17/22 0341 09/15/21 1848 AST 20 - - - 17 22 ALT 55 - - - 40 47 ALKPHOS 120 - - - 113 80 TBILI 0.8 - - - 1.0 1.2 ALB 4.2 3.6 3.5 - 4.1 3.7 - = values in this interval not displayed. ABG: No results for input(s): PH, PCO2, PO2 in the last 16823 hours. Invalid input(s): BICAR3 Amylase/Lipase: Invalid input(s): AMYL, LIPA Thyroid Studies: No results for input(s): TSH, T4 in the last 48187 hours. Cardiac Enzymes: No results for input(s): CKTOTAL, CKMB, TROPONINI in the last 78293 hours. Invalid input(s): CKMBINDEX Lipid Panel: No results for input(s): LDLCALC, HDL in the last 10669 hours. Microbiology: Reviewed in chart Imaging & Studies: Reviewed in chart The above assessment and plan will be discussed with the attending. This note is not final until attested by attending physician. Cedric Love MD Internal Medicine Resident [facility] 07/25/2022 10:32 PM Associated attestation - Nikita Chavez MD - 07/26/2022 11:59 AM CDT I have seen and examined the patient with the resident and I agree with the findings and plan of care as documented by the resident. In addition: Active Problem List History of gastroschisis POA: Yes S/P small bowel resection POA: Yes S/P exploratory laparotomy POA: Yes Partial small bowel obstruction (CMS/HCC) POA: Yes Leukocytosis POA: Yes Abdominal pain, generalized POA: Yes Plan -Partial SBO: pt with prior hx of SBO in the setting of multiple abdominal surgeries in the past.. Already improving clinically with treatment overnight. Continue NPO with mIVF. NGT to LIWS. Replete electrolytes. Avoid opioids. ACS following -Leukocytosis: likely reactive, low suspicion for infxn Date of Service: 07/26/2022 Nikita Chavez MD * Gene Quesada MD - 07/25/2022 9:06 PM CDT Images from the original note were not included. Acute Care Surgery History and Physical Patient Name: Sheri Cannon Age/Gender: 27 year old male : 1995 Date: 07/25/2022 Chief Complaint: Nausea, vomiting and Abdominal pain. Consult Reason: Small bowel obstruction. HPI: Sheri Cannon is a 27 year old male with medical history of HTN, DM, HLD and significant history of Gastroschisis as childhood repaired primarily, small bowel obstruction in 09/2021 s/p ex lap, resection of mid-terminal ileum, primary anastomosis by Dr. Cesar and most recent laparoscopic kirstie cystectomy by Dr. Miles on 07/13/22 has presented with complain of abdominal pain associated with nausea and loss of appetite for 1 day. He describes the pain as he previously had when he found to have obstruction and recently also had similar pain in 03/2022 when managed non operatively for partial small bowel obstruction successfully. Patient reports pain along periumbilical region, non radiating and constant. He had last BM this AM, small in amount. He denies any vomiting but complains persistent nausea for which he has not been able to tolerate any food. Denies any recent weight loss, fever or chills. On arrival to ED, his vitals HR 110, received bolus and improved to 90. Stable from there. BP 140-130/88-92. Temp 97.5 Labs remarkable for WBC 14.9. Lactate 1.6and BMP wnl. He underwent CT AP with IV contrast that suggestive of proximal dilation of small intestine and narrowing at the previous small bowel anastomosis concerning possible stricture and partial small bowelobstruction. ACS consulted for the same. Past Medical History: Diagnosis Date ??? Arthrogryposis 06/15/2021 ??? Controlled type 2 diabetes mellitus without complication, without long-term current use of insulin ([facility]) 06/16/2021 last A1C 5.6 1 month ago ??? Essential hypertension controlled with medication ??? GERD (gastroesophageal reflux disease) controlled with medication ??? 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 KARRIE (obstructive sleep apnea) 09/12/2021 Past Surgical History: Procedure Laterality Date ??? Cholecystectomy, Laparoscopic N/A 07/13/2022 N/A; LAPAROSCOPIC CHOLECYSTECTOMY ??? Laparotomy N/A 09/17/2021 N/A; LAPAROTOMY EXPLORATORY, BOWEL RESECTION, ENTROLYSIS ??? Septoplasty Bilateral 2020 ??? Small Bowel Resection Outpatient Medications: ??? acetaminophen (Tylenol) 325 MG tablet ??? amLODIPine (NORVASC) 10 MG tablet ??? ketoconazole (Nizoral) 2 % shampoo ??? Lancets (ONETOUCH DELICA PLUS 33G EXTRA FINE LANCET) ??? lisinopril (PRINIVIL; ZESTRIL) 40 MG tablet ??? montelukast (SINGULAIR) 10 MG tablet ??? omeprazole (PriLOSEC) 40 MG capsule ??? oxyCODONE, immediate release, (Roxicodone) 5 MG tablet ??? pravastatin (PRAVACHOL) 40 MG tablet ??? SALINE NASAL SPRAY NA ??? senna-docusate (Senokot-S) 8.6-50 MG tablet ??? SITagliptin (JANUVIA) 25 MG tablet REVIEW OF SYSTEMS Constitutional: Anorexia Eyes: Negative for visual changes CV: Negative for chest pain Pulm: Negative for dyspnea GI: Abdominal pain, nausea. : Negative for dysuria, hematuria MSK: Negative for myalgias, arthralgias Skin: Negative for skin changes Neuro: Negative for weakness Remainder of ROS negative unless documented in HPI PHYSICAL EXAM Vitals: 07/25/22 1603 07/25/22 1700 07/25/22 1900 BP: (!) 143/100 121/92 142/88 Pulse: 107 (!) 110 90 Resp: 18 16 16 Temp: 97.5 ??F (36.4 ??C) SpO2: 99% 93% 94% Weight: 120.2 kg (265 lb) Height: 1.803 m (5' 11 ) Estimated body mass index is 36.96 kg/m?? as calculated from the following: Height as of this encounter: 1.803 m (5' 11 ). Weight as of this encounter: 120.2 kg (265 lb). Gen: NAD HEENT: AT/NC, EOMI, oropharynx clear CV: RRR Pulm: Nonlabored respirations Abd: Soft, moderately distended, tender along periumbilical region. Recent laparoscopic incision c/d/i. MSK: WWP, no c/c/e Neuro: Moving all extremities, no focal deficits Psych: Appropriate mood and affect Recent Labs: Recent Labs Component Name 07/25/22 1630 WBC 14.9* HGB 14.4 HCT 44.5 Recent Labs Component Name 07/25/22 1754 NA 139 CL 104 CO2 24 BUN 13 CREATININE 0.68* Recent Labs Component Name 07/25/22 1657 PT 12.7 INR 1.0 Imaging: CT AP with IV contrast: 07/25/22 - 19:29 Mild borderline dilatation of small bowel loops in the right hemiabdomen. No discrete transition point however suggestion of mild narrowing at the anastomosis. Findings may represent partial obstruction. These findings are not significantly changed since prior CT dated 09/15/2021. Assessment and Plan: Sheri Cannon is a 27 year old male with medical history of HTN, DM, HLD and significant history of Gastroschisis as childhood repaired primarily, small bowel obstruction in 09/2021 s/p ex lap, resection of mid-terminal ileum, primary anastomosis by Dr. Cesar and most recent laparoscopic cholecyste ctomy by Dr. Miles on 07/13/22 has presented with complain of abdominal pain associated with nauseaand loss of appetite for 1 day. Based on clinical exam and labs with vitals patient appears to be non peritonitic. No acute concernfor perforation. - Given the obstruction in small bowel finding on CT at the previous anastomotic site, recommend NGdecompression urgent. - Keep the NG to LIWS once placement is confirmed. - Recommend enema and dulcolax suppository to help with aggressive bowel clean out. - Surgery following closely. Recommend rest of the care per ED. Staff: Dr. Quesada Senior: Dr. Og Elizabeth MD General Surgery PGY-1 07/25/2022 9:08 PM Pt seen and examined with team History and exam discussed with ACS chief Labs and films reviewed Agree with above assessments and plan Pt with obstructive sx -NG -IVF -will follow documented in this encounter Consult Notes * Jose Beard, RD/LD - 07/27/2022 1:11 PM CDTAssociated Order(s): IP CONSULT TO NUTRITIONAL SERV Initial Nutrition Assessment Brief Synopsis: Patient is at Nutrition Risk; Specific criteria can be found in assessment below Nutrition Plan: NPO+TF TF recommendations continuous Jevity 1.5 at 60 ml/hr. Provides 2160 kcal, 92 g protein, 311 g carbohydrate, 1094 ml free water. +100 ml q 6 hrs free water flush or per MD if on IVF +200 ml q4 hrs free water flush or per MD if not on additional fluids Tube Feeding Recommendations-Bolus Jevity 1.5 360ml x4 bolus/day +120 ml water flush before and after each bolus feed Recommendations to Physician: Pt at risk for refeeding. Recommend starting TF at 20ml/hr and advancing 20ml/h q12h until at goal. Monitor for refeeding andreplace lytes before beginning TF if needed. Comments: Consulted for MST score of 3. RD attempted to see Pt this morning, Pt was off floor. Pt currently NPO, noted NG tube placed, team will discuss NGT removal, see TF recs for both continuous and bolus above as needed. Last BM was 07/[address] to follow up per clinical nutrition guidelines. Assessment: Med/Surg History and Clinical Diagnoses: 27 year old male with Gastroschisis as childhood, small bowel obstruction in 09/2021 s/p ex lap, then SBO managed conservatively, recent laparoscopic cholecystectomy (07/13/22) who presented following an acute viral gastrointestinal illness with imaging, and symptoms consistent with partial SBO. Height: 180.3 cm (5' 11 ) Weight: 120.2 kg (265 lb) BMI: Body mass index is 36.96 kg/m??. BMI Range: Severely Obese Class 2 IBW/lb (Calculated) Male: 172 , Recent Weights/Methods 09/15/2021 1700 09/15/2021 1822 10/07/2021 1345 03/17/2022 0822 06/17/2022 0935 06/29/2022 1422 07/13/2022 0601 07/25/2022 1603 Weight: -- 118 kg (260 lb 2.3 oz) 110.7 kg (244 lb) 117.9 kg (260 lb) 122.5 kg (270 lb) 122.7 kg (270 lb 8 oz) 121.2 kg (267 lb 4.8 oz) 120.2 kg (265 lb) Weight Method (Utilize Scales): -- -- -- Stated -- -- Standing Stated Wt Comments: monitoring Diet order accuracy Current diet order: NPO Nutrition recommendation: alter/change nutrition order P.O.Intake for the past 48 hrs: No data recorded Supplement(s) Consumed- Last 48 hours None Food Allergies: No known food allergies GI Concerns: None Chewing/Swallowing: None Estimated Needs: KCAL: 0930-5580 (25-30kcal/kg IBW) Protein (g): 78-94 (1-1.2g/kg IBW) Fluid (ml): 1 ml/kcal Needs based on: Kcal/kg- (Comment) (78kg) Recommended Access Route: TF Laboratory values: Recent Labs Component Name 07/27/22 0257 07/26/22 0344 07/25/22 1754 06/29/22 1504 03/21/22 0606 03/20/22 0428 03/17/22 0416 03/17/22 0341 09/16/21 0238 09/15/21 1848 BUN 15 16 13 - 11 - 7 CREATININE 0.86 0.77 0.68* - 0.82 0.97 - 0.83 - 0.64* NA 141 136 139 - 140 144 - 138 - 139 POTASSIUM 3.9 4.0 4.0 - 4.0 4.2 - 4.5 - 3.7 CL 105 101 104 - 107 109* - 105 - 101 CO2 25 25 24 - 23 19* - 20* - 24 GLUCOSE 95 151* 126* - 109 92 - 158* - 79 CALCIUM 9.3 9.4 10.1 - 9.3 9.2 - 10.1 - 9.7 PROT - - 8.2 - - - - 8.2 - 7.7 ALB - - 4.2 - 3.6 3.5 - 4.1 - 3.7 TBILI - - 0.8 - - - - 1.0 - 1.2 ALKPHOS - - 120 - - - - 113 - 80 ALT - - 55 - - - - 40 - 47 AST - - 20 - - - - 17 - 22 ANIONGAP 15 14 15 - 14 20* - 18 - 18 BCR 17 21 19 - 13 10 - 11 OSMOLALITY 293 286 290 - 290 297 - 290 - 285 AGRATIO - - 1.1 - - - - 1.0* - 0.9* EGFR >90 >90 >90 - >90 >90 - >90 - >90 - = values in this interval not displayed. Medications: Current Facility-Administered Medications Medication ??? acetaminophen (Tylenol) tablet 650 mg ??? amLODIPine (Norvasc) tablet 10 mg ??? dextrose 10 % IV bolus Or ??? dextrose 10 % IV bolus ??? enoxaparin (Lovenox) injection 40 mg ??? glucagon (Glucagen) injection 1 mg ??? glucose (Diabetic Use) (Dex4 Glucose) oral liquid ??? glucose (Diabetic Use) oral gel ??? glucose chew tablet 4 tablet ??? insulin lispro (HumaLOG;ADMelog) 100 UNIT/ML pen 0-6 Units ??? iopamidol (Isovue 300) 61 % contrast 30 mL ??? iopamidol (Isovue 370) 76 % contrast ??? lisinopril (Prinivil; Zestril) tablet 40 mg ??? montelukast (Singulair) tablet 10 mg ??? pantoprazole EC (Protonix) tablet 40 mg ??? pravastatin (Pravachol) tablet 40 mg ??? prochlorperazine (Compazine) injection 10 mg Skin/Wound: WDL Education needed: None Education Provided: Not indicated Nutrition Care Process (1) Nutrition Diagnostic Statement: Inadequate oral intake related to:: decreased ability to consume or tolerate food and/or fluids due to illness as evidenced by:: need for parenteral or enteral intake to supplement oral intake Nutrition Diagnostic Statement Progress: New diagnostic statement established Nutrition Intervention: Enteral nutrition: Monitoring: TF, BM, labs, meds, weight Evaluation: Nutrition Goal: Total intake will meet estimated nutrient needs Nutrition Goal Timeframe: Throughout stay Nutrition Goal Progress: New goal established Ascom: [id number] documented in this encounter ED Notes * Michelle Qureshi RN - 07/26/2022 11:48 PM CDT Report called to BRYANT Calabrese * Michelle Qureshi RN - 07/26/2022 10:20 PM CDT Gave patient toothbrush and toothpaste per his request and escorted sister to and from cafeteria after they opened at 10pm * Michelle Qureshi RN - 07/26/2022 10:08 PM CDT Spoke with Provider Singh and informed him patients pain is 5/10. Explained to patient that opioids will effect the intestine and since he has a bowel obstructions that is not ideal and can not have PO meds with NG tube, will notify provider if pain worsens, no orders at this time * Micehlle Qureshi RN - 07/26/2022 9:53 PM CDT Patient requesting pain meds, collector of internal revenue A paged * Michelle Qureshi RN - 07/26/2022 8:12 PM CDT Placed recliner in room for family, patient watching TV and on cell phone * Michelle Qureshi RN - 07/26/2022 7:40 PM CDT Assumed care of patient at 1915, patient resting at this time * Katlyn Mercedes RN - 07/26/2022 7:16 PM CDT Report to machinist 2nd shift RN * Katlyn Mercedes RN - 07/26/2022 7:24 AM CDT Report from Alicia HURTADO * Alicia Howard RN - 07/26/2022 4:25 AM CDT Pt opting to take the second dulcolax suppository in hopes that he can have another bowel movement.Requesting to hold off on the enema for now. * Alicia Howard RN - 07/26/2022 2:54 AM CDT Pt able to pass a small amount of soft, watery stool prior to enema administration, and feels he could pass more soon on his own. Pt reconsidering the second dulcolax suppository that was previously refused. RN will check back shortly. * Alicia Howard RN - 07/26/2022 1:05 AM CDT Reached out to ED charge regarding out of stock enema supplies. * Alicia Howard RN - 07/25/2022 11:03 PM CDT at bedside. LEOBARDO delayed. * Velia Gray MD - 07/25/2022 4:49 PM CDT ED Attending Note: Chief complaint: Chief Complaint Patient presents with ??? Pain Abdominal 27 y/o male to ED w/ abdominal pain since this AM; PMHx includes multiple bowel obstruction, cholecystectomy on 07/13, and bowel resection 09/2021. Says pain he is having is similar to how he presented with obstructions. LBM was this AM. HPI: Sheri R Aud is a 27 year old male with history of arthogryposis, gastroschisis s/p infant repair, multiple prior abdominal surgeries (most recently bowel obstruction -> small bowel resection) presenting to [facility] for abdominal pain, nausea, vomiting. States this AM abdominal pain woke him from sleep, diffuse, mostly lower abdominal / midline and radiates to the sides, waxes/wanes in severity but always there, sharp in quality. Denies fevers, chills. +nausea, +NBNB emesis. Last BM this AM, andwas normal, non-bloody. Endorses normal bowel movements up until today. Has not passed gas since this AM. Was concerned he had another SBO, so came to [facility] ED for evaluation. Past Medical History: Diagnosis Date ??? Arthrogryposis 06/15/2021 ??? Controlled type 2 diabetes mellitus without complication, without long-term current use of insulin ([facility]) 06/16/2021 last A1C 5.6 1 month ago ??? Essential hypertension controlled with medication ??? GERD (gastroesophageal reflux disease) controlled with medication ??? 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 KARRIE (obstructive sleep apnea) 09/12/2021 Past Surgical History: Procedure Laterality Date ??? Cholecystectomy, Laparoscopic N/A 07/13/2022 N/A; LAPAROSCOPIC CHOLECYSTECTOMY ??? Laparotomy N/A 09/17/2021 N/A; LAPAROTOMY EXPLORATORY, BOWEL RESECTION, ENTROLYSIS ??? Septoplasty Bilateral 2019 ??? Small Bowel Resection Social History Tobacco Use ??? Smoking status: Never ??? Smokeless tobacco: Former Types: Chew Quit date: 09/15/2020 Vaping Use ??? Vaping Use: Never used Substance Use Topics ??? Alcohol use: Yes Comment: occ ??? Drug use: Never Review of Systems Constitutional: Negative for diaphoresis and fever. HENT: Negative for congestion and sore throat. Eyes: Negative for pain and redness. Respiratory: Negative for cough, shortness of breath and wheezing. Cardiovascular: Negative for chest pain and leg swelling. Gastrointestinal: Positive for abdominal pain, nausea and vomiting. Negative for blood in stool anddiarrhea. Genitourinary: Negative for dysuria and urgency. Musculoskeletal: Negative for back pain, myalgias and neck pain. Skin: Negative for rash. Neurological: Negative for loss of consciousness and headaches. Physical Exam Vitals and nursing note reviewed. Constitutional: General: He is not in acute distress. Appearance: He is well-developed. He is not diaphoretic. HENT: Head: Normocephalic and atraumatic. Eyes: General: No scleral icterus. Pupils: Pupils are equal, round, and reactive to light. Neck: Vascular: No JVD. Cardiovascular: Rate and Rhythm: Regular rhythm. Heart sounds: Normal heart sounds. No murmur heard. No friction rub. No gallop. Comments: tachycardic Pulmonary: Effort: Pulmonary effort is normal. No respiratory distress. Breath sounds: Normal breath sounds. No wheezing or rales. Abdominal: General: Bowel sounds are normal. There is no distension. Palpations: Abdomen is soft. Tenderness: There is generalized abdominal tenderness. There is no guarding or rebound. Musculoskeletal: General: No deformity. Normal range of motion. Cervical back: Normal range of motion and neck supple. Skin: General: Skin is warm and dry. Findings: No rash. Neurological: Mental Status: He is alert and oriented to person, place, and time. Cranial Nerves: No cranial nerve deficit. Motor: No abnormal muscle tone. The patient's oxygen saturation monitor was interpreted by me. The reading was 100%. The patient was on RA at the time of the reading. This is interpreted as normal. Medical Decision Making: Patient presents to [facility] ED with diffuse abdominal pain, here on evaluation uncomfortable, nauseated, endorsing diffuse abdominal pain, though fortunately no peritoneal signs. History of multiple prior SBOs, including small bowel resection in September 2021. Would favor symptomatic control with IV fluids, pain control, antiemetics; obtain labwork, including lactate; obtain CT abd/pelvis with IV contrast to evaluate for ?SBO. DDx may also include colitis,diverticulitis, appendicitis - would not favor aortic pathology, gallbladder pathology, hepatitis, p ancreatitis. However highest degree of concern is for SBO vs pSBO. He is agreeable to this plan. I ordered and independently interpreted the following labwork/imaging: Lactate wnl at 1.6 WBC mildly elevated to 14.9 I reviewed and summarized prior records as follows: Prior SBO with bowel resection in September 2021 I discussed the patient's case with the following consultants/providers: ACS - will come to evaluate the patient Medicine - will accept patient for admission Labs Reviewed CBC W AUTO DIFFERENTIAL - Abnormal; Notable for the following components: Result Value WBC 14.9 (*) MCH 26.2 (*) Platelet Count 477 (*) Neutrophils % 75.2 (*) Lymphocytes % 16.6 (*) Monocytes % 4.2 (*) Neutrophils Absolute 11.18 (*) Basophils Absolute 0.12 (*) All other components within normal limits COMPREHENSIVE METABOLIC PANEL - Abnormal; Notable for the following components: Creatinine 0.68 (*) Glucose 126 (*) All other components within normal limits GLUCOSE - POINT OF CARE - Abnormal; Notable for the following components: Glucose WB/POC 134 (*) All other components within normal limits PT-INR [facility] - Normal LACTIC ACID BLOOD - Normal PHOSPHORUS BLOOD MAGNESIUM BLOOD CBC W/O DIFFERENTIAL BASIC METABOLIC PANEL (CALCIUM TOTAL) HEMOGLOBIN A1C TYPE + SCREEN PANEL XR ABDOMEN KUB PORTABLE Final Result PROCEDURE: XR ABDOMEN KUB PORTABLE, DATE/TIME OF EXAM: 07/25/2022 11:19 PM, LOCATION [facility] INDICATION: R10.84: Abdominal pain, generalized ADDITIONAL CLINICAL [...] cholecystectomy. Report dictated by Adelita Pruitt MD (radiology clerk). I, Oseas Nguyen MD, PhD have personally reviewed and interpreted this examination/study. > Interpreting Provider: Oseas Nguyen MD, PhD on 07/26/2022 12:[address] ABDOMEN PELVIS W CONTRAST Final Result PROCEDURE: CT ABDOMEN PELVIS W CONTRAST, DATE/TIME OF EXAM: 07/25/2022 7:30 PM, LOCATION [facility] INDICATION: R10.84: Abdominal pain, generalized ADDITIONAL CLINICAL INFORMATION: Ordering Provider Reason For Exam: prior history of SBO requiring resection, concern for SBO vs appy today COMPARISON: CT abdomen pelvis dated 03/17/2022 and 09/15/2021 TECHNIQUE: CT of the abdomen and pelvis was performed following the uneventful administration of 100 mL of Isovue 370 intravenous contrast according to standard protocol. Findings Lower Chest: Lung bases are clear. Abdomen: Liver and Gall Bladder: Interval postoperative changes of cholecystectomy. There is mild stranding at the gallbladder fossa (series 3, image 55), likely scarring/post cholecystectomy. There is no focal hepatic lesion. There is no intrahepatic or extrahepatic bile duct dilatation. Spleen: Normal. Pancreas: Normal. Kidneys and Adrenals: Both kidneys enhance symmetrically. There is no hydronephrosis or nephrolithiasis. Adrenals are normal. Gastrointestinal: The lower esophagus and stomach are normal. There are changes of small bowel anastomosis in the lower anterior abdomen are redemonstrated. There is mild borderline dilatation of small bowel loops in the lower right hemiabdomen, no significant change since 09/15/2021. No discrete transition point is identified however there is suggestion of mild narrowing at the small bowel anastomosis (series 3, image 121). This may represent partial obstruction. The cecum is located in the left mid abdomen. Bowel loop enhances normally. There is no pneumatosis or bowel wall thickening. Large bowel loops are decompressed. The ileocecal valve is located in the left lower quadrant on series 3 image 80 and series 4 image 32. Mesentery/Peritoneum/Retroperitoneum: Multiple subcentimeter mesenteric and retroperitoneal lymph nodes are unchanged, nonspecific. No enlarged retroperitoneal lymph node. There is no free intraperitoneal air or fluid. Pelvic Structures: The urinary bladder is normal. The prostate is normal. There is no pelvic lymphadenopathy. No free pelvic fluid. Vasculature: The abdominal aorta and IVC are normal. Retroaortic left renal vein is incidentally noted. Bones and Soft tissues: Bone windows demonstrate no suspicious lytic or blastic lesions. The visible osseous structures are intact. IMPRESSION Mild borderline dilatation of small bowel loops in the right hemiabdomen. No discrete transition point however suggestion of mild narrowing at the anastomosis. Findings may represent partial obstruction. These findings are not significantly changed since prior CT dated 09/15/2021. The ileocecal valve is located in the left lower quadrant. This report was drafted by Dr. Robin Lundberg MD. (vice president talent management). I, Adriel Rosen MD have personally reviewed and interpreted this examination/study. > Interpreting Provider: Adriel Rosen MD on 07/25/2022 11:14 PM XR ABDOMEN KUB Final Result PROCEDURE: XR ABDOMEN KUB, DATE/TIME OF EXAM: 07/25/2022 4:27 PM, LOCATION [facility] INDICATION: R10.84: Abdominal pain, generalized ADDITIONAL CLINICAL [...] constipation. Report dictated by Uche Hensley MD (radiology clerk). ISabra MD have personally reviewed and interpreted this examination/study. > Interpreting Provider: Sabra Tracy MD on 07/25/2022 11:16 PM No results found. ED Course: 7:00pm - CT imaging notable for dilated loops of fluid-filled small bowel, without significant air-fluid levels. There is a stricture noted, likely at prior anastomatic site, which could be contributory to what is likely pSBO. Will discuss with ACS for evaluation. 10:00pm - Discussed with ACS, recommend NGT placement, suppository for constipation, admission for pain control, serial abdominal examinations, and staged diet advancement to medicine service. ACS will continue to follow. Patient counseled on this plan and agreable. Final Clinical Impression: 1. Partial obstruction of small intestine (CMS/HCC) 2. Abdominal pain, generalized Disposition: Admission to medicine floor, ACS following. Velia Gray M.D. 07/25/2022 4:49 PM * Aurelio Youngblood, BRYANT - 07/25/2022 4:07 PM CDT 27 y/o male to ED w/ abdominal pain since this AM; PMHx includes multiple bowel obstruction, cholecystectomy on 07/13, and bowel resection 09/2021. Says pain he is having is similar to how he presented with obstructions. LBM was this AM. documented in this encounter Plan of Treatment Scheduled Referrals Name Type Priority Associated Diagnoses Orde r Schedule Ref to General Surgery [facility] Outpatient Referral Routine Partial obstruction of small intestine (HCC) S/P exploratory laparotomy Ordered: 07/27/2022 documented as of this encounter Procedures Procedure Name Priority Date/Time Associated Diagnosis Comments GLUCOSE - POINT OF CARE Routine 07/28/2022 8:21 AM CDT GLUCOSE - POINT OF CARE Routine 07/28/2022 4:26 AM CDT CBC W/O DIFFERENTIAL AM Draw 07/28/2022 2:43 AM CDT BASIC METABOLIC PANEL (CALCIUM TOTAL) AM Draw 07/28/2022 2:43 AM CDT PHOSPHORUS BLOOD AM Draw 07/28/2022 2:43 AM CDT MAGNESIUM BLOOD AM Draw 07/28/2022 2:43 AM CDT GLUCOSE - POINT OF CARE Routine 07/27/2022 11:45 PM CDT GLUCOSE - POINT OF CARE Routine 07/27/2022 8:06 PM CDT GLUCOSE - POINT OF CARE Routine 07/27/2022 5:24 PM CDT FL SMALL BOWEL SERIES STAT 07/27/2022 2:25 PM CDT Partial obstruction of small intestine (HCC) GLUCOSE - POINT OF CARE Routine 07/27/2022 11:59 AM CDT GLUCOSE - POINT OF CARE Routine 07/27/2022 7:26 AM CDT GLUCOSE - POINT OF CARE Routine 07/27/2022 4:01 AM CDT CBC W/O DIFFERENTIAL AM Draw 07/27/2022 2:57 AM CDT BASIC METABOLIC PANEL (CALCIUM TOTAL) AM Draw 07/27/2022 2:57 AM CDT PHOSPHORUS BLOOD AM Draw 07/27/2022 2:57 AM CDT MAGNESIUM BLOOD AM Draw 07/27/2022 2:57 AM CDT GLUCOSE - POINT OF CARE Routine 07/27/2022 1:08 AM CDT GLUCOSE - POINT OF CARE Routine 07/26/2022 8:59 PM CDT GLUCOSE - POINT OF CARE Routine 07/26/2022 2:13 PM CDT GLUCOSE - POINT OF CARE Routine 07/26/2022 8:38 AM CDT HEMOGLOBIN A1C ISAAC 07/26/2022 3:44 AM CDT CBC W/O DIFFERENTIAL STAT 07/26/2022 3:44 AM CDT BASIC METABOLIC PANEL (CALCIUM TOTAL) STAT 07/26/2022 3:44 AM CDT PHOSPHORUS BLOOD STAT 07/26/2022 3:44 AM CDT MAGNESIUM BLOOD STAT 07/26/2022 3:44 AM CDT GLUCOSE - POINT OF CARE Routine 07/26/2022 3:42 AM CDT GLUCOSE - POINT OF CARE Routine 07/26/2022 12:18 AM CDT XR ABDOMEN KUB PORTABLE STAT 07/25/2022 11:18 PM CDT Abdominal pain, generalized CT ABDOMEN PELVIS W CONTRAST STAT 07/25/2022 7:29 PM CDT Abdominal pain, generalized COMPREHENSIVE METABOLIC PANEL STAT 07/25/2022 5:54 PM CDT PT-INR [facility] STAT 07/25/2022 4:57 PM CDT TYPE + SCREEN PANEL STAT 07/25/2022 4 :57 PM CDT LACTIC ACID BLOOD STAT 07/25/2022 4:5 7 PM CDT XR ABDOMEN KUB STAT 07/25/2022 4:52 PM CDT Abdominal pain, generalized CBC W AUTO DIFFERENTIAL STAT 07/25/2022 4:30 PM CDT documented in this encounter Results * GLUCOSE - POINT OF CARE (07/28/2022 8:21 AM CDT) Glucose WB/POC 103 70 - 115 mg/dL 07/28/2022 8:31 AM CDT [facility] Specimen Type Cap Fingerstick 2022 8:31 AM CDT [facility] Blood BLOOD SPECIMEN / Unknown 07/28/2022 8:21 AM CDT 07/28/2022 8:31 AM CDT Shelbi Vasques DO LAB - POINT OF CARE ORDERABLES Performing Organization Address City/State/[facility] Co de Phone Number [address] [address], [facility] [phone] * (ABNORMAL) GLUCOSE - POINT OF CARE (07/28/2022 4:26 AM CDT) Glucose WB/POC 154(H) 70 - 115 mg/dL 07/28/2022 4:30 AM CDT [facility] Specimen Type Venous 07/28/2022 4:30 AM CDT [facility] Blood BLOOD SPECIMEN / Unknown 07/28/2022 4:26 AM CDT 07/28/2022 4:30 AM CDT Shelbi Vasques DO LAB - POINT OF CARE ORDERABLES Performing Organization Address City/[facility]/ZIP Co de Phone Number [facility] [address] [place] [address], [facility] [phone] * (ABNORMAL) BASIC METABOLIC PANEL (CALCIUM TOTAL) (07/28/2022 2:43 AM CDT) BUN 15 7 - 26 mg/dL 07/28/2022 3:39 AM [facility] Creatinine 0.86 0.71 - 1.16 mg/dL 07/28/2022 3:39 AM [facility] Sodium 144 136 - 145 mmol/L 07/28/2022 3:39 AM [facility] Potassium 3.8 3.5 - 4.5 mmol/L 07/28/2022 3:39 AM [facility] Chloride 105 98 - 107 mmol/L 07/28/2022 3:39 AM [facility] CO2 25 22 - 29 mmol/L 07/28/2022 3:39 AM [facility] Glucose 121(H) 70 - 115 mg/dL 07/28/2022 3:39 AM [facility] Calcium 9.4 8.4 - 10.2 mg/dL 07/28/2022 3:39 AM [facility] Anion Gap 18 8 - 18 07/28/2022 3:39 AM [facility] BUN/Creatinine Ratio 17 7 - 23 07/28/2022 3:39 AM [facility] Osmolality Calculated 300 270 - 300 mOsm/kg 07/28/2022 3:39 AM [facility] eGFR by CKD-EPI >90 >=90 mL/min/1.7 3 m2 07/28/2022 3:39 AM [facility] Blood BLOOD SPECIMEN / Unknown Lab Venipuncture / Unknown 07/28/2022 2:43 AM CDT 07/28/2022 3:09 AM CDT Velia Gray MD LAB - CHEMISTRY [place] [facility] [address] [place] [address], [facility] [phone] * (ABNORMAL) CBC W/O DIFFERENTIAL (07/28/2022 2:43 AM CDT) WBC 8.6 3.5 - 10.5 10? 3 /uL 07/28/2022 3:21 AM CDT [facility] RBC 4.83 4.30 - 5.70 10? 6 /uL 07/28/2022 3:21 AM [facility] Hemoglobin 12.7 12.0 - 17.6 g/dL 07/28/2022 3:21 AM [facility] Hematocrit 39.2 35.2 - 51.7 % 07/28/2022 3:21 AM [facility] MCV 81.2 80.7 - 98.3 fL 07/28/2022 3:21 AM [facility] MCH 26.3(L) 26.7 - 34.0 pg 07/28/2022 3:21 AM [facility] MCHC 32.4 30.8 - 35.9 g/dL 07/28/2022 3:21 AM [facility] RDW-SD 39.4 36.0 - 50.0 fL 07/28/2022 3:21 AM [facility] RDW-CV 13.5 11.2 - 14.8 % 07/28/2022 3:21 AM [facility] Platelet Count 352 150 - 400 10? 3 /uL 07/28/2022 3:21 AM [facility] MPV 10.2 9.4 - 12.9 fL 07/28/2022 3:21 AM [facility] nRBC Absolute 0.00 0 10? 3 /uL 07/28/2022 3:21 AM [facility] nRBC Auto 0.0 0 /100 WBC 07/28/2022 3:21 AM [facility] Blood BLOOD SPECIMEN / Unknown Lab Venipuncture / Unknown 07/28/2022 2:43 AM CDT 07/28/2022 3:13 AM CDT Velia Gray MD LAB - HEMATOLOGY [facility] [place] [address] [address], [place] [phone] * MAGNESIUM BLOOD (07/28/2022 2:43 AM CDT) Magnesium 2.2 1.6 - 2.6 mg/dL 07/28/2022 3:39 AM CDT [facility] Blood BLOOD SPECIMEN / Unknown Lab Venipuncture / Unknown 07/28/2022 2:43 AM CDT 07/28/2022 3:09 AM CDT Velia Gray MD LAB - CHEMISTRY [place] [address] [address], [place] [phone] * PHOSPHORUS BLOOD (07/28/2022 2:43 AM CDT) Phosphorus 4.2 2.8 - 5.1 mg/dL 07/28/2022 3:39 AM CDT [facility] Blood BLOOD SPECIMEN / Unknown Lab Venipuncture / Unknown 07/28/2022 2:43 AM CDT 07/28/2022 3:09 AM CDT Velia Gray MD LAB - CHEMISTRY [place] [address] [address], [place] [phone] * GLUCOSE - POINT OF CARE (07/27/2022 11:45 PM CDT) Glucose WB/POC 111 70 - 115 mg/dL 07/27/2022 11:58 PM CDT [facility] Specimen Type Venous 07/27/2022 11:58 PM CDT [facility] Blood BLOOD SPECIMEN / Unknown 07/27/2022 11:45 PM CDT 07/27/2022 11:58 PM CDT Shelbi Vasques DO LAB - POINT OF CARE ORDERABLES [address] [address], [place] [phone] * (ABNORMAL) GLUCOSE - POINT OF CARE (07/27/2022 8:06 PM CDT) Glucose WB/POC 122(H) 70 - 115 mg/dL 07/27/2022 8:11 PM CDT [facility] Specimen Type Venous 07/27/2022 8:11 PM CDT [facility] Blood BLOOD SPECIMEN / Unknown 07/27/2022 8:06 PM CDT 07/27/2022 8:11 PM CDT Christiane Downing MD LAB - POINT OF CARE ORDERABLES Performing Organization Address City/[facility]/ZIP Co de Phone Number [address] [address], [place] [phone] * GLUCOSE - POINT OF CARE (07/27/2022 5:24 PM CDT) Glucose WB/POC 105 70 - 115 mg/dL 07/27/2022 6:19 PM CDT [facility] Specimen Type Arterial 07/27/2022 6:19 PM CDT [facility] Blood BLOOD SPECIMEN / Unknown 07/27/2022 5:24 PM CDT 07/27/2022 6:19 PM CDT Christiane Downing MD LAB - POINT OF CARE ORDERABLES [address] [address], [place] [phone] * FL SMALL BOWEL SERIES (07/27/2022 2:25 PM CDT) Anatomical Region Laterality Modality Abdomen Radiographic Merissa ging 07/27/2022 2:22 PM CDT Impressions 07/27/2022 2:27 PM CDT IMPRESSION: No evidence of small bowel bowel obstruction. > Interpreting Provider: Ginette Wellington MD on 07/27/2022 2:27 PM Narrative 07/27/2022 2:27 PM CDT PROCEDURE: ??FL SMALL BOWEL SERIES, DATE/TIME OF EXAM: ??07/27/2022 2:26 PM, LOCATION ??[facility] INDICATION: K56.600: Partial obstruction of small intestine (CMS/HCC) ADDITIONAL CLINICAL INFORMATION: Ordering Provider Reason For Exam: ??SBO Technique/contrast: The nasogastric tube was advanced further into the stomach so that the side-port was within the stomach. A total of 200 cc water-soluble contrast (Isovue-300) was given through the NG tube, 100 cc at a time. Serial images were taken. FINDINGS: Deli Worker image shows small bowel distention up to 4.5 cm. There is progressive advancement of the contrast column, with opacification of the ascending colon at 2 hours. Much of the small bowel is right-sided. Procedure Note Ginette Wellington MD - 07/27/2022 PROCEDURE: FL SMALL BOWEL SERIES, DATE/TIME OF EXAM: 07/27/2022 2:26PM, LOCATION [facility] INDICATION: K56.600: Partial obstruction of small intestine (CMS/HCC) ADDITIONAL CLINICAL INFORMATION: Ordering Provider Reason For Exam: SBO Technique/contrast: The nasogastric tube was advanced further into the stomach so that the side-port was within the stomach. A total of 200 cc water-solublecontrast (Isovue-300) was given through the NG tube, 100 cc at a time. Serialimages were taken. FINDINGS: Deli Worker image shows small bowel distention up to 4.5 cm. There isprogressive advancement of the contrast column, with opacification of the ascending colon at 2 hours. Much of the small bowel is right-sided. IMPRESSION: No evidence of small bowel bowel obstruction. > Interpreting Provider: Ginette Wellington MD on 07/27/2022 2:27 PM Christiane Downing MD FLUOROSCOPY ORDERABL ES * (ABNORMAL) GLUCOSE - POINT OF CARE (07/27/2022 11:59 AM CDT) Glucose WB/POC 122(H) 70 - 115 mg/dL 07/27/2022 6:19 PM CDT [facility] Specimen Type Arterial 07/27/2022 6:19 PM CDT [facility] Blood BLOOD SPECIMEN / Unknown 07/27/2022 11:59 AM CDT 07/27/2022 6:19 PM CDT Christiane Downing MD LAB - POINT OF CARE ORDERABLES [address] [address], [place] [phone] * GLUCOSE - POINT OF CARE (07/27/2022 7:26 AM CDT) Glucose WB/POC 104 70 - 115 mg/dL 07/27/2022 11:30 AM CDT [facility] Specimen Type Arterial 07/27/2022 11:30 AM CDT [facility] Blood BLOOD SPECIMEN / Unknown 07/27/2022 7:26 AM CDT 07/27/2022 11:30 AM CDT Christiane Downing MD LAB - POINT OF CARE ORDERABLES Performing Organization Address City/[facility]/ZIP Co de Phone Number [address] [address], [place] [phone] * GLUCOSE - POINT OF CARE (07/27/2022 4:01 AM CDT) Glucose WB/POC 97 70 - 115 mg/dL 07/27/2022 4:02 AM CDT [facility] Specimen Type Cap Fingerstick 2022 4:02 AM CDT [facility] Blood BLOOD SPECIMEN / Unknown 07/27/2022 4:01 AM CDT 07/27/2022 4:02 AM CDT Christiane oDwning MD LAB - POINT OF CARE ORDERABLES [address] [address], [place] [phone] * BASIC METABOLIC PANEL (CALCIUM TOTAL) (07/27/2022 2:57 AM CDT) Pathologist [facility] BUN 15 7 - 26 mg/dL 07/27/2022 4:19 AM [facility] Creatinine 0.86 0.71 - 1.16 mg/dL 07/27/2022 4:19 AM [facility] Sodium 141 136 - 145 mmol/L 07/27/2022 4:19 AM [facility] Potassium 3.9 3.5 - 4.5 mmol/L 07/27/2022 4:19 AM [facility] Chloride 105 98 - 107 mmol/L 07/27/2022 4:19 AM [facility] CO2 25 22 - 29 mmol/L 07/27/2022 4:19 AM [facility] Glucose 95 70 - 115 mg/dL 07/27/2022 4:19 AM [facility] Calcium 9.3 8.4 - 10.2 mg/dL 07/27/2022 4:19 AM [facility] Anion Gap 15 8 - 18 07/27/2022 4:19 AM [facility] BUN/Creatinine Ratio 17 7 - 23 07/27/2022 4:19 AM [facility] Osmolality Calculated 293 270 - 300 mOsm/kg 07/27/2022 4:19 AM [facility] eGFR by CKD-EPI >90 >=90 mL/min/1.7 3 m2 07/27/2022 4:19 AM [facility] Blood BLOOD SPECIMEN / Unknown Lab Venipuncture / Unknown 07/27/2022 2:57 AM CDT 07/27/2022 3:49 AM CDT Velia Gray MD LAB - CHEMISTRY [place] [facility] Organization Address City/State/ZIP Co de Phone Number [address] [address], [facility] [phone] * (ABNORMAL) CBC W/O DIFFERENTIAL (07/27/2022 2:57 AM CDT) Pathologist [facility] WBC 8.2 3.5 - 10.5 10? 3 /uL 07/27/2022 4:03 AM [facility] RBC 4.73 4.30 - 5.70 10? 6 /uL 07/27/2022 4:03 AM [facility] Hemoglobin 12.2 12.0 - 17.6 g/dL 07/27/2022 4:03 AM [facility] Hematocrit 38.1 35.2 - 51.7 % 07/27/2022 4:03 AM [facility] MCV 80.5(L) 80.7 - 98.3 fL 07/27/2022 4:03 AM [facility] MCH 25.8(L) 26.7 - 34.0 pg 07/27/2022 4:03 AM [facility] MCHC 32.0 30.8 - 35.9 g/dL 07/27/2022 4:03 AM [facility] RDW-SD 38.7 36.0 - 50.0 fL 07/27/2022 4:03 AM [facility] RDW-CV 13.4 11.2 - 14.8 % 07/27/2022 4:03 AM [facility] Platelet Count 342 150 - 400 10? 3 /uL 07/27/2022 4:03 AM [facility] MPV 10.3 9.4 - 12.9 fL 07/27/2022 4:03 AM [facility] nRBC Absolute 0.00 0 10? 3 /uL 07/27/2022 4:03 AM [facility] nRBC Auto 0.0 0 /100 WBC 07/27/2022 4:03 AM [facility] Blood BLOOD SPECIMEN / Unknown Lab Venipuncture / Unknown 07/27/2022 2:57 AM CDT 07/27/2022 3:50 AM CDT Velia Gray MD LAB - HEMATOLOGY ORD ERABLES [facility] [address] [place] [address], [facility] [phone] * MAGNESIUM BLOOD (07/27/2022 2:57 AM CDT) Magnesium 2.1 1.6 - 2.6 mg/dL 07/27/2022 4:19 AM CDT [facility] Blood BLOOD SPECIMEN / Unknown Lab Venipuncture / Unknown 07/27/2022 2:57 AM CDT 07/27/2022 3:49 AM CDT Velia Gray MD LAB - CHEMISTRY ORDPatricia REYES [address] [address], [place] [phone] * PHOSPHORUS BLOOD (07/27/2022 2:57 AM CDT) Phosphorus 3.8 2.8 - 5.1 mg/dL 07/27/2022 4:19 AM CDT [facility] Blood BLOOD SPECIMEN / Unknown Lab Venipuncture / Unknown 07/27/2022 2:57 AM CDT 07/27/2022 3:49 AM CDT Velia Gray MD LAB - CHEMISTRY [place] REYES Performing Organization Address [facility]/ZIP Co de Phone Number [address] [address], [place] [phone] * GLUCOSE - POINT OF CARE (07/27/2022 1:08 AM CDT) Glucose WB/POC 83 70 - 115 mg/dL 07/27/2022 4:02 AM CDT [facility] Specimen Type Cap Fingerstick 2022 4:02 AM CDT [facility] Blood BLOOD SPECIMEN / Unknown 07/27/2022 1:08 AM CDT 07/27/2022 4:02 AM CDT Christiane Downing MD LAB - POINT OF CARE ORDERABLES Performing Organization Address City/[facility]/ZIP Co de Phone Number [address] [address], [place] [phone] * GLUCOSE - POINT OF CARE (07/26/2022 8:59 PM CDT) Glucose WB/POC 100 70 - 115 mg/dL 07/26/2022 9:04 PM CDT [facility] Specimen Type Cap Fingerstick 2022 9:04 PM CDT [facility] Blood BLOOD SPECIMEN / Unknown 07/26/2022 8:59 PM CDT 07/26/2022 9:04 PM CDT Nikita Chavez MD LAB - POINT OF CARE ORDERABLES Performing Organization Address City/[facility]/ZIP Co de Phone Number [address] [address], [place] [phone] * GLUCOSE - POINT OF CARE (07/26/2022 2:13 PM CDT) Glucose WB/POC 106 70 - 115 mg/dL 07/26/2022 2:17 PM CDT [facility] Specimen Type Cap Fingerstick 2022 2:17 PM CDT [facility] Blood BLOOD SPECIMEN / Unknown 07/26/2022 2:13 PM CDT 07/26/2022 2:17 PM CDT Nikita Chavez MD LAB - POINT OF CARE ORDERABLES Performing Organization Address City/[facility]/ZIP Co de Phone Number [address] [address], [place] [phone] * (ABNORMAL) GLUCOSE - POINT OF CARE (07/26/2022 8:38 AM CDT) Glucose WB/POC 130(H) 70 - 115 mg/dL 07/26/2022 8:39 AM CDT [facility] Specimen Type Cap Fingerstick 2022 8:39 AM CDT [facility] Blood BLOOD SPECIMEN / Unknown 07/26/2022 8:38 AM CDT 07/26/2022 8:39 AM CDT Nikita Chavez MD LAB - POINT OF CARE ORDERABLES [facility] [address] [place] [address], [facility] [phone] * (ABNORMAL) BASIC METABOLIC PANEL (CALCIUM TOTAL) (07/26/2022 3:44 AM CDT) BUN 16 7 - 26 mg/dL 07/26/2022 4:32 AM [facility] Creatinine 0.77 0.71 - 1.16 mg/dL 07/26/2022 4:32 AM [facility] Sodium 136 136 - 145 mmol/L 07/26/2022 4:32 AM [facility] Potassium 4.0 3.5 - 4.5 mmol/L 07/26/2022 4:32 AM [facility] Chloride 101 98 - 107 mmol/L 07/26/2022 4:32 AM [facility] CO2 25 22 - 29 mmol/L 07/26/2022 4:32 AM [facility] Glucose 151(H) 70 - 115 mg/dL 07/26/2022 4:32 AM [facility] Calcium 9.4 8.4 - 10.2 mg/dL 07/26/2022 4:32 AM [facility] Anion Gap 14 8 - 18 07/26/2022 4:32 AM [facility] BUN/Creatinine Ratio 21 7 - 23 07/26/2022 4:32 AM [facility] Osmolality Calculated 286 270 - 300 mOsm/kg 07/26/2022 4:32 AM [facility] eGFR by CKD-EPI >90 >=90 mL/min/1.7 3 m2 07/26/2022 4:32 AM [facility] Blood BLOOD SPECIMEN / Unknown Venipuncture / Unknown 07/26/2022 3:44 AM CDT 07/26/2022 4:05 AM [facility][NOTE 3] Velia Gray MD LAB - CHEMISTRY TRAY REYES [facility] [address] [place] [address], [facility] [phone] * (ABNORMAL) CBC W/O DIFFERENTIAL (07/26/2022 3:44 AM CDT) WBC 11.2(H) 3.5 - 10.5 10? 3 /uL 07/26/2022 4:10 AM [facility] RBC 4.80 4.30 - 5.70 10? 6 /uL 07/26/2022 4:10 AM [facility] Hemoglobin 12.4 12.0 - 17.6 g/dL 07/26/2022 4:10 AM [facility] Hematocrit 38.6 35.2 - 51.7 % 07/26/2022 4:10 AM [facility] MCV 80.4(L) 80.7 - 98.3 fL 07/26/2022 4:10 AM [facility] MCH 25.8(L) 26.7 - 34.0 pg 07/26/2022 4:10 AM [facility] MCHC 32.1 30.8 - 35.9 g/dL 07/26/2022 4:10 AM [facility] RDW-SD 40.0 36.0 - 50.0 fL 07/26/2022 4:10 AM [facility] RDW-CV 13.6 11.2 - 14.8 % 07/26/2022 4:10 AM [facility] Platelet Count 411(H) 150 - 400 10? 3 /uL 07/26/2022 4:10 AM [facility] MPV 10.3 9.4 - 12.9 fL 07/26/2022 4:10 AM [facility] nRBC Absolute 0.00 0 10? 3 /uL 07/26/2022 4:10 AM [facility] nRBC Auto 0.0 0 /100 WBC 07/26/2022 4:10 AM [facility] Blood BLOOD SPECIMEN / Unknown Venipuncture / Unknown 07/26/2022 3:44 AM CDT 07/26/2022 4:05 AM CDT Velia Gray MD LAB - HEMATOLOGY ORD ERABLES [facility] [address] [place] [address], [facility] [phone] * MAGNESIUM BLOOD (07/26/2022 3:44 AM CDT) Magnesium 1.9 1.6 - 2.6 mg/dL 07/26/2022 4:32 AM CDT [facility] Blood BLOOD SPECIMEN / Unknown Venipuncture / Unknown 07/26/2022 3:44 AM CDT 07/26/2022 4:05 AM CDT Velia Gray MD LAB - CHEMISTRY ORDPatricia REYES [address] [address], [facility] [phone] * PHOSPHORUS BLOOD (07/26/2022 3:44 AM CDT) Phosphorus 4.0 2.8 - 5.1 mg/dL 07/26/2022 4:32 AM CDT [facility] Blood BLOOD SPECIMEN / Unknown Venipuncture / Unknown 07/26/2022 3:44 AM CDT 07/26/2022 4:05 AM CDT Velia Gray MD LAB - CHEMISTRY [place] RE[place] Performing Organization Address City/[facility]/ZIP Co de Phone Number [address] [address], [facility] [phone] * (ABNORMAL) HEMOGLOBIN A1C (07/26/2022 3:44 AM CDT) Hemoglobin A1c 6.3(H) <=5.6 % 07/26/2022 11:04 AM CDT [facility] Estimated Average Glucose 134 mg/dL 07/26/2022 11:04 AM CDT [facility] Comment: HbA1c Interpretation: Normal : < 5.7% Pre-diabetes: 5.7-6.4% Diabetes: Equal to or greater than 6.5% Test results diagnostic of diabetes should be repeated for confirmation. Treatment target values recommended by ADA and other clinical organizations should be used to evaluate metabolic control in patients. Reference: [place] [employer], Standards of Care in Diabetes [...] Gray MD LAB - CHEMISTRY ORDE RABLES [address] [address], [place] [phone] * (ABNORMAL) GLUCOSE - POINT OF CARE (07/26/2022 3:42 AM CDT) Glucose WB/POC 147(H) 70 - 115 mg/dL 07/26/2022 3:43 AM CDT [facility] Specimen Type Venous 07/26/2022 3:43 AM CDT [facility] Blood BLOOD SPECIMEN / Unknown 07/26/2022 3:42 AM CDT 07/26/2022 3:43 AM CDT Velia Gray MD LAB - POINT OF CARE ORDERABLES [address] [address], [place] [phone] * (ABNORMAL) GLUCOSE - POINT OF CARE (07/26/2022 12:18 AM CDT) Glucose WB/POC 134(H) 70 - 115 mg/dL 07/26/2022 12:24 AM CDT [facility] Specimen Type Venous 07/26/2022 12:24 AM CDT [facility] Blood BLOOD SPECIMEN / Unknown 07/26/2022 12:18 AM CDT 07/26/2022 12:24 AM CDT Velia Gray MD LAB - POINT OF CARE ORDERABLES [facility] [address] [place] [address], [facility] [phone] * XR ABDOMEN KUB PORTABLE (07/25/2022 11:18 PM CDT) Anatomical Region Laterality Modality Abdomen Radiographic Merissa ging 07/25/2022 11:3 2 PM CDT Narrative 07/26/2022 12:25 AM CDT PROCEDURE: ??XR ABDOMEN KUB PORTABLE, DATE/TIME OF EXAM: ??07/25/2022 11:19 PM, LOCATION ??[facility] INDICATION: R10.84: Abdominal pain, generalized ADDITIONAL CLINICAL [...] cholecystectomy. Report dictated by Adelita Pruitt MD (radiology clerk). I, Oseas Nguyen MD, PhD have personally reviewed and interpreted this examination/study. > Interpreting Provider: Oseas Nguyen MD, PhD on 07/26/2022 12:25 AM Procedure Note Oseas Nguyen MD - 07/26/2022 PROCEDURE: XR ABDOMEN KUB PORTABLE, DATE/TIME OF EXAM: 07/25/2022 11:19 PM, LOCATION [facility] INDICATION: R10.84: Abdominal pain, generalized ADDITIONAL CLINICAL [...] cholecystectomy. Report dictated by Adelita Pruitt MD (radiology clerk). Oseas Zhou MD, PhD have personally reviewed and interpreted this examination/study. > Interpreting Provider: Oseas Nguyen MD, PhD on 07/26/2022 12:25 AM Velia Gray MD DIAGNOSTIC IMAGING O RDERABLES * CT ABDOMEN PELVIS W CONTRAST (07/25/2022 7:29 PM CDT) Anatomical Region Laterality Modality Abdomen, Pelvis Computed Tomogra phy 07/25/2022 7:34 PM CDT Impressions 07/25/2022 11:14 PM CDT IMPRESSION Mild borderline dilatation of small bowel loops in the right hemiabdomen. No discrete transition point however suggestion of mild narrowing at the anastomosis. Findings may represent partial obstruction. These findings are not significantly changed since prior CT dated 09/15/2021. The ileocecal valve is located in the left lower quadrant. This report was drafted by Dr. Robin Lundberg MD. (vice president talent management). IAdriel MD have personally reviewed and interpreted this examination/study. > Interpreting Provider: Adriel Rosen MD on 07/25/2022 11:14 PM Narrative 07/25/2022 11:14 PM CDT PROCEDURE: ??CT ABDOMEN PELVIS W CONTRAST, DATE/TIME OF EXAM: ??07/25/2022 7:30 PM, LOCATION ??[facility] INDICATION: R10.84: Abdominal pain, generalized ADDITIONAL CLINICAL INFORMATION: Ordering Provider Reason For Exam: ??prior history of SBO requiring resection, concern for SBO vs appy today COMPARISON: CT abdomen pelvis dated 03/17/2022 and 09/15/2021 TECHNIQUE: CT of the abdomen and pelvis was performed following the uneventful administration of 100 mL of Isovue 370 intravenous contrast according to standard protocol. Findings Lower Chest: Lung bases are clear. Abdomen: Liver and Gall Bladder: Interval postoperative changes of cholecystectomy. There is mild stranding at the gallbladder fossa (series 3, image 55), likely scarring/post cholecystectomy. There is no focal hepatic lesion. There is no intrahepatic or extrahepatic bile duct dilatation. Spleen: Normal. Pancreas: Normal. Kidneys and Adrenals: Both kidneys enhance symmetrically. There is no hydronephrosis or nephrolithiasis. Adrenals are normal. Gastrointestinal: The lower esophagus and stomach are normal. There are changes of small bowel anastomosis in the lower anterior abdomen are redemonstrated. There is mild borderline dilatation of small bowel loops in the lower right hemiabdomen, no significant change since 09/15/2021. No discrete transition point is identified however there is suggestion of mild narrowing at the small bowel anastomosis (series 3, image 121). This may represent partial obstruction. The cecum is located in the left mid abdomen. Bowel loop enhances normally. There is no pneumatosis or bowel wall thickening. Large bowel loops are decompressed. The ileocecal valve is located in the left lower quadrant on series 3 image 80 and series 4 image 32. Mesentery/Peritoneum/Retroperitoneum: Multiple subcentimeter mesenteric and retroperitoneal lymph nodes are unchanged, nonspecific. No enlarged retroperitoneal lymph node. There is no free intraperitoneal air or fluid. Pelvic Structures: The urinary bladder is normal. The prostate is normal. There is no pelvic lymphadenopathy. No free pelvic fluid. Vasculature: The abdominal aorta and IVC are normal. Retroaortic left renal vein is incidentally noted. Bones and Soft tissues: Bone windows demonstrate no suspicious lytic or blastic lesions. The visible osseous structures are intact. Procedure Note Adriel Rosen MD - 07/25/2022 PROCEDURE: CT ABDOMEN PELVIS W CONTRAST, DATE/TIME OF EXAM: 07/25/2022 7:30 PM, LOCATION [facility] INDICATION: R10.84: Abdominal pain, generalized ADDITIONAL CLINICAL INFORMATION: Ordering Provider Reason For Exam: prior history of SBO requiring resection, concern for SBO vs appy today COMPARISON: CT abdomen pelvis dated 03/17/2022 and 09/15/2021 TECHNIQUE: CT of the abdomen and pelvis was performed following the uneventful administration of 100 mL of Isovue 370 intravenous contrast according to standard protocol. Findings Lower Chest: Lung bases are clear. Abdomen: Liver and Gall Bladder: Interval postoperative changes of cholecystectomy. There is mildstranding at the gallbladder fossa (series 3, image 55), likely scarring/post cholecystectomy. There is no focal hepatic lesion. There is no intrahepatic orextrahepatic bile duct dilatation. Spleen: Normal. Pancreas: Normal. Kidneys and Adrenals: Both kidneys enhance symmetrically. There is no hydronephrosis or nephrolithiasis. Adrenals are normal. Gastrointestinal: The lower esophagus and stomach are normal. There are changes of small bowel anastomosis in the lower anterior abdomen are redemonstrated.There is mild borderline dilatation of small bowel loops in the lower right hemiabdomen, no significant change since 09/15/2021. No discretetransition point is identified however there is suggestion of mild narrowing at the small bowel anastomosis (series 3, image 121). This may representpartial obstruction. The cecum is located in the left mid abdomen. Bowel loop enhances normally. There is no pneumatosis or bowel wall thickening.Large bowel loops are decompressed. The ileocecal valve is located in the left lower quadrant on series 3 image 80 and series 4 image 32. Mesentery/Peritoneum/Retroperitoneum: Multiple subcentimeter mesenteric and retroperitoneal lymph nodes are unchanged, nonspecific. No enlarged retroperitoneal lymph node. There isno free intraperitoneal air or fluid. Pelvic Structures: The urinary bladder is normal. The prostate is normal. There is nopelvic lymphadenopathy. No free pelvic fluid. Vasculature: The abdominal aorta and IVC are normal. Retroaortic left renal vein is incidentally noted. Bones and Soft tissues: Bone windows demonstrate no suspicious lytic or blastic lesions. The visible osseous structures are intact. IMPRESSION Mild borderline dilatation of small bowel loops in the righthemiabdomen. No discrete transition point however suggestion of mild narrowing at the anastomosis. Findings may represent partial obstruction. These findingsare not significantly changed since prior CT dated 09/15/2021. The ileocecal valve is located in the left lower quadrant. This report was drafted by Dr. Robin Lundberg MD. (vice president talent management). I, Adriel Rosen MD have personally reviewed and interpreted this examination/study. > Interpreting Provider: Adriel Rosen MD on 07/25/2022 11:14 PM Velia Gray MD CT ORDERABLES * (ABNORMAL) COMPREHENSIVE METABOLIC PANEL (07/25/2022 5:54 PM CDT) BUN 13 7 - 26 mg/dL 07/25/2022 6:25 PM CDT [facility] Creatinine 0.68(L) 0.71 - 1.16 mg/dL 07/25/2022 6:25 PM CDT [facility] Sodium 139 136 - 145 mmol/L 07/25/2022 6:25 PM [facility] Potassium 4.0 3.5 - 4.5 mmol/L 07/25/2022 6:25 PM [facility] Chloride 104 98 - 107 mmol/L 07/25/2022 6:25 PM [facility] CO2 24 22 - 29 mmol/L 07/25/2022 6:25 PM [facility] Glucose 126(H) 70 - 115 mg/dL 07/25/2022 6:25 PM [facility] Calcium 10.1 8.4 - 10.2 mg/dL 07/25/2022 6:25 PM [facility] Protein Total 8.2 6.0 - 8.3 g/dL 07/25/2022 6:25 PM [facility] Albumin 4.2 3.4 - 5.0 g/dL 07/25/2022 6:25 PM [facility] Bilirubin Total 0.8 0.2 - 1.2 mg/dL 07/25/2022 6:25 PM [facility] Alkaline Phosphatase 120 40 - 150 U/L 07/25/2022 6:25 PM [facility] ALT 55 5 - 55 U/L 07/25/2022 6:25 PM [facility] AST 20 5 - 34 U/L 07/25/2022 6:25 PM [facility] Anion Gap 15 8 - 18 07/25/2022 6:25 PM [facility] BUN/Creatinine Ratio 19 7 - 23 07/25/2022 6:25 PM [facility] Osmolality Calculated 290 270 - 300 mOsm/kg 07/25/2022 6:25 PM [facility] Albumin/Globulin Ratio 1.1 1.1 - 2.3 07/25/2022 6:25 PM [facility] eGFR by CKD-EPI >90 >=90 mL/min/1.7 3 m2 07/25/2022 6:25 PM [facility] Blood BLOOD SPECIMEN / Unknown Venipuncture / Unknown 07/25/2022 5:54 PM CDT 07/25/2022 6:00 PM CDT Velia Gray MD LAB - CHEMISTRY [place]RAY RE[place] [address] [address], [place] [phone] * LACTIC ACID BLOOD (07/25/2022 4:57 PM CDT) [facility] Lactic Acid-Stat 1.6 <=2.0 mmol/L 07/25/2022 5:38 PM CDT [facility] Blood BLOOD SPECIMEN / Unknown Venipuncture / Unknown 07/25/2022 4:57 PM CDT 07/25/2022 5:17 PM CDT Velia Gray MD LAB - CHEMISTRY TRAY REYES Performing Organization Address City/[facility]/ZIP Co de Phone Number [address] [address], [place] [phone] * PT-INR [facility] (07/25/2022 4:57 PM CDT) [facility] PT 12.7 12.1 - 14.8 Seconds 07/25/2022 5:39 PM CDT [facility] INR 1.0 See Comment 07/25/2022 5:39 PM CDT [facility] Comment:The suggested therap eutic range for standard coumadin (warfarin) therapy is an INR of 2.0-3.0. For high-risk patients (Mechanical Mitral Valve Prosthesis, etc.), the suggested prophylactic therapeutic range is an INR of 2.5-3.5. Blood BLOOD SPECIMEN / Unknown Venipuncture / Unknown 07/25/2022 4:57 PM CDT 07/25/2022 5:17 PM CDT Velia Gray MD LAB - COAGULATION OR DERABLES [address] [address], [place] [phone] * TYPE + SCREEN PANEL (07/25/2022 4:57 PM CDT) [facility] Antibody Screen NEG 5:48 PM CDT [facility] ABO Rh O POS 07/25/2022 5:48 PM CDT [facility] Blood Bank BLOOD SPECIMEN / Unknown Venipuncture / Unknown 07/25/2022 4:57 PM CDT 07/25/2022 5:13 PM CDT Velia Gray MD LAB - BLOOD BANK ORD ERABLES [facility] [address] [place] [address], [facility] [phone] * XR ABDOMEN KUB (07/25/2022 4:52 PM CDT) Anatomical Region Laterality Modality Abdomen Radiographic Merissa ging 07/25/2022 5:06 PM CDT Impressions 07/25/2022 11:16 PM CDT IMPRESSION: Stool in the distal colon. Multiple small bowel air-fluid levels without significant small bowel distention. Recommend clinical correlation with constipation. Report dictated by Uche Hensley MD (radiology clerk). ISabra MD have personally reviewed and interpreted this examination/study. > Interpreting Provider: Sabra Tracy MD on 07/25/2022 11:16 PM Narrative 07/25/2022 11:16 PM CDT PROCEDURE: ??XR ABDOMEN KUB, DATE/TIME OF EXAM: ??07/25/2022 4:27 PM, LOCATION [facility] INDICATION: R10.84: Abdominal pain, generalized ADDITIONAL CLINICAL [...] KUB, DATE/TIME OF EXAM: 07/25/2022 4:27 PM,LOCATION [facility] INDICATION: R10.84: Abdominal pain, generalized ADDITIONAL CLINICAL [...] constipation. Report dictated by Uche Hensley MD (radiology clerk). ISabra MD have personally reviewed and interpreted this examination/study. > Interpreting Provider: Sabra Tracy MD on 07/25/2022 11:16 PM Velia Gray MD DIAGNOSTIC IMAGING O RDERABLES * (ABNORMAL) CBC W AUTO DIFFERENTIAL (07/25/2022 4:30 PM CDT) WBC 14.9(H) 3.5 - 10.5 10? 3 /uL 07/25/2022 4:40 PM T [facility] RBC 5.49 4.30 - 5.70 10? 6 /uL 07/25/2022 4:40 PM [facility] Hemoglobin 14.4 12.0 - 17.6 g/dL 07/25/2022 4:40 PM [facility] Hematocrit 44.5 35.2 - 51.7 % 07/25/2022 4:40 PM [facility] MCV 81.1 80.7 - 98.3 fL 07/25/2022 4:40 PM [facility] MCH 26.2(L) 26.7 - 34.0 pg 07/25/2022 4:40 PM [facility] MCHC 32.4 30.8 - 35.9 g/dL 07/25/2022 4:40 PM [facility] RDW-SD 39.5 36.0 - 50.0 fL 07/25/2022 4:40 PM [facility] RDW-CV 13.6 11.2 - 14.8 % 07/25/2022 4:40 PM [facility] Platelet Count 477(H) 150 - 400 10? 3 /uL 07/25/2022 4:40 PM [facility] MPV 10.2 9.4 - 12.9 fL 07/25/2022 4:40 PM [facility] nRBC Absolute 0.00 0 10? 3 /uL 07/25/2022 4:40 PM [facility] nRBC Auto 0.0 0 /100 WBC 07/25/2022 4:40 PM [facility] Neutrophils % 75.2(H) 35.0 - 70.0 % 07/25/2022 4:40 PM [facility] Lymphocytes % 16.6(L) 20.0 - 43.0 % 07/25/2022 4:40 PM [facility] Monocytes % 4.2(L) 5.0 - 13.0 % 07/25/2022 4:40 PM [facility] Eosinophils % 2.4 0.0 - 6.0 % 07/25/2022 4:40 PM [facility] Basophil % 0.8 0.0 - 2.0 % 07/25/2022 4:40 PM [facility] Neutrophils Absolute 11.18(H) 1.60 - 7.00 10? 3 /uL 07/25/2022 4:40 PM [facility] Lymphocyte Absolute 2.47 1.10 - 3.90 10? 3 /uL 07/25/2022 4:40 PM [facility] Monocytes Absolute 0.63 0.26 - 1.07 10? 3 /uL 07/25/2022 4:40 PM [facility] Eosinophils Absolute 0.35 0.00 - 0.47 10? 3 /uL 07/25/2022 4:40 PM [facility] Basophils Absolute 0.12(H) 0.00 - 0.08 10? 3 /uL 07/25/2022 4:40 PM [facility] Immature Granulocytes % 0.8 0.0 - 1.0 % 07/25/2022 4:40 PM CDT [facility] Immature Granulocytes Absolute 0.12 07/25/2022 4:40 PM CDT [facility] Blood BLOOD SPECIMEN / Unknown Venipuncture / Unknown 07/25/2022 4:30 PM CDT 07/25/2022 4:36 PM CDT Velia Gray MD LAB - HEMATOLOGY ORD ERABLES [facility] [address] [place] [address], [facility] [phone] documented in this encounter Visit Diagnoses Diagnosis Partial obstruction of small intestine (HCC)- Primary Unspecified intestinal obstruction Abdominal pain, generalized Partial small bowel obstruction (HCC) Unspecified intestinal obstruction S/P exploratory laparotomy Other postprocedural status Abdominal pain, generalized History of gastroschisis Partial small bowel obstruction (HCC) Unspecified intestinal obstruction S/P small bowel resection Other postprocedural status S/P exploratory laparotomy Other postprocedural status Leukocytosis Leukocytosis, unspecified documented in this encounter Administered Medications Inactive Administered Medications - up to 3 most recent administrations Medication Order MAR Action Action Date Dose Rate Site amLODIPine (Norvasc) tablet 10 mg 10 mg, Oral, DAILY, First dose (after last modification) on Tue07/28/22 at 0900, Until Discontinued $ Given 07/28/2022 8:40 AM CDT 10 mg bisacodyl (Dulcolax) suppository 10 mg 10 mg, Rectal, ONCE, 1 dose, On Tue07/25/22 at 2215 $ Given 07/25/2022 10:22 PM CDT 10 mg bisacodyl (Dulcolax) suppository 10 mg 10 mg, Rectal, ONCE, 1 dose, On Tue07/25/22 at 2345 $ Given 07/26/2022 4:28 AM CDT 10 mg dextrose 10 % IV bolus 12.5 g, at 468.75 mL/hr, Intravenous, PRN, Other, Bedside Glucose less than 70 mg/dL -If NOT able to eat and/or NPO and with IV Access, Starting on Tue07/25/22 at 2313, Until Tue07/28/22 at 1206, If NOT able to eat and/or NPO and with IV Access: For Bedside Glucose 54-69 mg/dL give 12.5 g Dextrose IV STAT For Bedside Glucose LESS than 54 mg/dl verify with a second Bedside Glucose (from a different site) and give 25 g Dextrose IV STAT Re-check and Re-treat blood glucose EVERY , 10-25 minutes until blood glucose GREATER than or equal to 80 mg/dl. NOTIFY PROVIDER OF HYPOGLYCEMIC EVENT. dextrose 10 % IV bolus 25 g, at 937.5 mL/hr, Intravenous, PRN, Other, Bedside Glucose less than 70 mg/dL -If NOT able to eat and/or NPO and with IV Access, Starting on Tue07/25/22 at 2313, Until Tue07/28/22 at 1206, If NOT able to eat and/or NPO and with IV Access: For Bedside Glucose 54-69 mg/dL - give 12.5 g Dextrose IV STAT For Bedside Glucose LESS than 54 mg/dl - verify with a second Bedside Glucose (from a different site) and give 25 g Dextrose IV STAT Re-check and Re-treat blood glucose EVERY - 10-25 minutes until blood glucose GREATER than or equal to 80 mg/dl. - If repeat bedside glucose 54-79 give 12.5 g Dextrose IV STAT NOTIFY PROVIDER OF HYPOGLYCEMIC EVENT. dextrose 5 % and lactated ringers infusion at 75 mL/hr, Intravenous, CONTINUOUS, Starting on Tue07/26/22 at 0100, Until Tue07/27/22 at 0059 $ New Bag/Syringe 07/26/2022 3:12 PM CDT 75 mL/hr $ New Bag/Syringe 07/26/2022 12:44 AM CDT 75 mL /hr dextrose 5 % and lactated ringers infusion at 75 mL/hr, Intravenous, CONTINUOUS, Starting on Tue07/27/22 at 0200, Until Tue07/27/22 at 0959 Current Rate 07/27/2022 6:12 AM CDT 75 mL/hr Current Rate 07/27/2022 4:00 AM CDT 75 mL/hr $ New Bag/Syringe 07/27/2022 4:00 AM CDT 75 mL/ hr enoxaparin (Lovenox) injection 40 mg 40 mg, Subcutaneous, DAILY, First dose on Tue07/26/22 at 0900, Until Discontinued, (for prefilled syringes) do not expel air bubble from the syringe prior to the injection Remind Patient to not rub injection site. Could cause hematoma. $ Given 07/28/2022 8:41 AM CDT 40 mg Ab dominal Tissue $ Given 07/27/2022 12:12 PM CDT 40 mg A bdominal Tissue $ Given 07/26/2022 8:52 AM CDT 40 mg Ab d Left Upper Quadrant glucagon (Glucagen) injection 1 mg 1 mg, Subcutaneous, PRN, Bedside Glucose less than 70 mg/dL - If NOT able to eat and/or NPO and withOUT IV Access, Starting on 07/25/22 at 2313, Until Tue07/28/22 at 1206, If NOT able to eat and/or NPO and NO IV Access: For Bedside glucose 54-69 mg/dL - Give 1 mg SQ For Bedside Glucose LESS than 54 mg/dl - verify with a second bedside glucose (from a different site) - Give 1 mg SQ Re-check and Re-treat blood glucose EVERY 10-25 minutes until blood glucose GREATER than or equal to 80 mg/dl. NOTIFY PROVIDER OF HYPOGLYCEMIC EVENT. Reconstitute vial with 1 mL of sterile water for injection for a final concentration of 1 mg/mL; shake vial gently; use immediately and discard unused portion glucose (Diabetic Use) (Dex4 Glucose) oral liquid Oral, PRN, Other, Bedside Glucose less than 70 mg/dL -If able to eat and does not have swallowing difficulties, Starting on 07/25/22 at 2313, Until Tue07/28/22 at 1206, If able to eat and can swallow thin liquids: For Bedside Glucose 54 - 69 mg/dL Give 15 grams of oral carbohydrates - 1 glucose liquid (see MAR) If patient refuses glucose liquid, then offer: - 4 ounces of fruit juice OR - 4 ounces non-diet soda OR - 8 ounces of fat-free milk For Bedside Glucose LESS than 54 mg/dL - verify with a second Bedside Glucose (from a different site) - If pt is symptomatic, do not delay treatment - If accuracy of the POC glucose is in question, confirm glucose with a STAT laboratory test. Give 30 grams of oral carbohydrates - 2 glucose liquid (see MAR) If patient refuses glucose liquid, then offer: - 8 ounces of fruit juice OR - 8 ounces non-diet soda OR - 16 ounces of fat-free milk Re-check and Re-treat blood glucose EVERY 10-25 minutes until blood glucose GREATER than or equal to 80 mg/dl. - If on recheck, bedside glucose 54-79 mg/dL - Give 15 grams of oral carbohydrates (see above for choices) NOTIFY PROVIDER OF HYPOGLYCEMIC EVENT. glucose (Diabetic Use) oral gel Oral, PRN, Other, Bedside Glucose less than 70 mg/dL -If able to eat and does not have swallowing difficulties, Starting on 07/25/22 at 2313, Until Tue07/28/22 at 1206, If able to eat and is better able to swallow gel: For Bedside Glucose 54 - 69 mg/dL Give 15 grams of oral carbohydrates - 1 glucose gel (see MAR) If patient refuses glucose gel, then offer: - 4 ounces of fruit juice OR - 4 ounces non-diet soda OR - 8 ounces of fat-free milk For Bedside Glucose LESS than 54 mg/dL verify with a second Bedside Glucose (from a different site) - If pt is symptomatic, do not delay treatment - If accuracy of the POC glucose is in question, confirm glucose with a STAT laboratory test Give 30 grams of oral carbohydrates - 2 glucose gels (see MAR) If patient refuses glucose gel, then offer: - 8 ounces of fruit juice OR - 8 ounces non-diet soda OR - 16 ounces of fat-free milk Re-check and Re-treat blood glucose EVERY 10-25 minutes until blood glucose GREATER than or equal to 80 mg/dl. - If on recheck, bedside glucose 54-79 mg/dL - Give 15 grams of oral carbohydrates (see above for choices) NOTIFY PROVIDER OF HYPOGLYCEMIC EVENT. glucose chew tablet 4 tablet 4 tablet (16 g), Oral, PRN, Other, Bedside Glucose less than 70 mg/dL -If able to eat and does not have swallowing difficulties, Starting on 07/25/22 at 2313, Until Tue07/28/22 at 1206, If able to eat and does not have swallowing difficulties: For Bedside Glucose 54 - 69 mg/dL Give 16 grams of oral carbohydrates - 4 glucose tabs (see MAR) If patient refuses glucose tabs, then offer: - 4 ounces of fruit juice OR - 4 ounces non-diet soda OR - 8 ounces of fat-free milk For Bedside Glucose LESS than 54 mg/dL - verify with a second Bedside Glucose (from a different site) - If pt is symptomatic, do not delay treatment - If accuracy of the POC glucose is in question, confirm glucose with a STAT laboratory test. Give 32 grams of oral carbohydrates - 8 glucose tabs (see MAR) If patient refuses glucose gel, then offer: - 8 ounces of fruit juice OR - 8 ounces non-diet soda OR - 16 ounces of fat-free milk Re-check and Re-treat blood glucose EVERY 10-25 minutes until blood glucose GREATER than or equal to 80 mg/dl. - If on recheck, bedside glucose 54-79 mg/dL - Give 15 grams of oral carbohydrates (see above for choices). NOTIFY PROVIDER OF HYPOGLYCEMIC EVENT. HYDROmorphone (Dilaudid) injection 0.5 mg 0.5 mg, Intravenous, NOW, 1 dose, On 07/25/22 at 1745, Patient preference for lesser PRN pain meds may be honored when the patient requests a less strong medication, a lower dose, or a less intrusive route of administration when the lesser drug, dose and route have been ordered for the patient. This patient request must be documented in the MAR. $ Given 07/25/2022 5:45 PM CDT 0.5 mg HYDROmorphone (Dilaudid) injection 0.5 mg 0.5 mg, Intravenous, NOW, 1 dose, On 07/25/22 at 2215, Patient preference for lesser PRN pain meds may be honored when the patient requests a less strong medication, a lower dose, or a less intrusive route of administration when the lesser drug, dose and route have been ordered for the patient. This patient request must be documented in the MAR. $ Given 07/25/2022 10:20 PM CDT 0.5 mg insulin lispro (HumaLOG;ADMelog) 100 UNIT/ML pen 0-6 Units 0-6 Units, Subcutaneous, EVERY 4 HOURS, First dose on 07/26/22 at 0000, Until Discontinued, DO NOT HOLD CORRECTION BOLUS EVEN IF PATIENT IS NPO. BEDSIDE GLUCOSE MUST BE PERFORMED AND DOCUMENTED WITHIN 30-60 MINUTES OF CORRECTION INSULIN ADMINISTRATION. BG (mg/dL) LESS than 70 = follow Hypoglycemic guidelines 150-200 = give 1 unit 201-250 = give 2 units 251-300 = give 3 units 301-350 = give 4 units 351-400 = give 5 units and notify physician GREATER than 400 = give 6 units and notify physician iopamidol (Isovue 300) 61 % contrast 30 mL 30 mL, Oral, CONTRAST ONCE, Starting on Tue07/27/22 at 1156, Until Tue07/28/22 at 1206 $ Given - Contrast 07/27/2022 10:00 AM CDT 200 mL iopamidol (Isovue 370) 76 % contrast Intravenous, CONTRAST ONCE, Starting on Tue07/25/22 at 1921, Until Tue07/27/22 at 1920 $ Given - Contrast 07/25/2022 7:21 PM CDT 100 mL ketorolac (Toradol) injection 15 mg 15 mg, Intravenous, ONCE, 1 dose, On Tue07/26/22 at 0900 $ Given 07/26/2022 8:52 AM CDT 15 mg ketorolac (Toradol) injection 15 mg 15 mg, Intravenous, ONCE, 1 dose, On Tue07/27/22 at 0030 $ Given 07/27/2022 1:01 AM CDT 15 mg ketorolac (Toradol) injection 15 mg 15 mg, Intravenous, EVERY 6 HOURS PRN, Moderate Pain, Severe Pain, Starting on Tue07/27/22 at 1320, Until Tue07/27/22 at 1544 $ Given 07/27/2022 1:51 PM CDT 15 mg ketorolac (Toradol) injection 30 mg 30 mg, Intravenous, ONCE, 1 dose, On Tue07/26/22 at 1615 $ Given 07/26/2022 4:12 PM CDT 30 mg lactated ringers IV bolus 1,000 mL, at 983.61 mL/hr, Administer over 61 Minutes, ONCE, 1 dose, On Tue07/25/22 at 1800 $ New Bag/Syringe 07/25/2022 5:48 PM CDT 1,000 mL 983.61 mL/hr lisinopril (Prinivil; Zestril) tablet 40 mg 40 mg, Oral, DAILY, First dose (after last modification) on Tue07/28/22 at 0900, Until Discontinued $ Given 07/28/2022 8:40 AM CDT 40 mg montelukast (Singulair) tablet 10 mg 10 mg, Oral, AT BEDTIME, First dose (after last reorder) on Tue07/27/22 at 2100, Until Discontinued $ Given 07/27/2022 9:13 PM CDT 10 mg morphine injection 4 mg 4 mg, Intravenous, ONCE, 1 dose, On Tue07/25/22 at 2000, Patient preference for lesser PRN pain meds may be honored when the patient requests a less strong medication, a lower dose, or a less intrusive route of administration when the lesser drug, dose and route have been ordered for the patient. This patient request must be documented in the MAR. $ Given 07/25/2022 7:49 PM CDT 4 mg ondansetron (Zofran) injection 4 mg 4 mg, Intravenous, NOW, 1 dose, On Tue07/25/22 at 1745, Administer over 2 to 5 minutes. $ Given 07/25/2022 5:46 PM CDT 4 mg ondansetron (Zofran) injection 4 mg 4 mg, Intravenous, NOW, 1 dose, On Tue07/25/22 at 1945, Administer over 2 to 5 minutes. $ Given 07/25/2022 7:49 PM CDT 4 mg Other MED NAME: ketotifen fumarate ophthalmic solution 0.035%, instill one drop into each eye daily, Each Eye, DAILY, First dose on Tue07/27/22 at 2100, Until Discontinued $ Given 07/27/2022 9:21 PM CDT pantoprazole EC (Protonix) tablet 40 mg 40 mg, Oral, DAILY, First dose on Tue07/26/22 at 0900, Until Discontinued, Do not crush, chew, or cut in half. pravastatin (Pravachol) tablet 40 mg 40 mg, Oral, EVERY EVENING, First dose (after last modification) on Tue07/27/22 at 1700, Until Discontinued $ Given 07/27/2022 9:13 PM CDT 40 mg prochlorperazine (Compazine) injection 10 mg 10 mg, Intravenous, ONCE, 1 dose, On Tue07/25/22 at 2230, Max intravenous rate = 5 mg/min $ Given 07/25/2022 10:21 PM CDT 10 mg documented in this encounter Active and Recently Administered Medications Times are shown in CDT. Scheduled Medication Order 07/26/2022 07/27/2022 07/28/2022 amLODIPine (Norvasc) tablet 10 mg 10 mg, Oral, DAILY, First dose (after last modification) on Tue07/28/22 at 0900, Until Discontinued 0840 ($ Given - Provider: Cindy Solis, RN) bisacodyl (Dulcolax) suppository 10 mg (COMPLETED) 10 mg, Rectal, ONCE, 1 dose, On Tue07/25/22 at 2345 0428 ($ Given - Provider: Alicia Howard, BRYANT) enoxaparin (Lovenox) injection 40 mg 40 mg, Subcutaneous, DAILY, First dose on Tue07/26/22 at 0900, Until Discontinued, (for prefilled syringes) do not expel air bubble from the syringe prior to the injection Remind Patient to not rub injection site. Could cause hematoma. 0852 ($ Given - Provider: Katlyn Mercedes RN) 1212 ($ Given - Provider: Leslie Bal RN) 0841 ($ Given - Provider: Cindy Solis, BRYANT) insulin lispro (HumaLOG;ADMelog) 100 UNIT/ML pen 0-6 Units 0-6 Units, Subcutaneous, EVERY 4 HOURS, First dose on Tue07/26/22 at 0000, Until Discontinued, DO NOT HOLD CORRECTION BOLUS EVEN IF PATIENT IS NPO. BEDSIDE GLUCOSE MUST BE PERFORMED AND DOCUMENTED WITHIN 30-60 MINUTES OF CORRECTION INSULIN ADMINISTRATION. BG (mg/dL) LESS than 70 = follow Hypoglycemic guidelines 150-200 = give 1 unit 201-250 = give 2 units 251-300 = give 3 units 301-350 = give 4 units 351-400 = give 5 units and notify physician GREATER than 400 = give 6 units and notify physician 0019 (Not Administered - Provider: Alicia Howard RN - Reason: Per Administration Instructions)0344 (Not Administered - Provider: Alicia Howard RN - Reason: Per Administration Instructions)0839 (Not Administered - Provider: Katlyn Mercedes RN - Reason: Patient Condition - Comment: bgl 130)1400 (Not Administered - Provider: Katlyn Mercedes RN - Reason: Patient Condition - Comment: bgl <150)1701 (Not Administered - Provider: Katlyn Mercedes RN - Reason: NPO)2150 (Not Administered - Provider: Michelle Qureshi RN - Reason: See Comments - Comment: glucose 100) 0049 (Not Administered - Provider: Jesika Leon - Reason: Patient Condition - Comment: Glucose 83mg/dl)0402 (Not Administered - Provider: Jesika Leon - Reason: Per Administration Instructions - Comment: blood sugar 97)0758 (Not Administered - Provider: Leslie Bal RN - Reason: Per Administration Instructions)1209 (Not Administered - Provider: Leslie Bal RN - Reason: Per Administration Instructions)1819 (Not Administered - Provider: Leslie Bal RN - Reason: Per Administration Instructions)2033 (Not Administered - Provider: Irma Alvarez RN - Reason: See Comments - Comment: 122) 0041 (Not Administered - Provider: Irma Alvarez RN - Reason: See Comments - Comment: 111)0550 (Not Administered - Provider: Irma Alvarez RN - Reason: Medication not available - Comment: no pen available ,pen requested)0844 (Not Administered - Provider: Cindy Solis RN - Reason: Per Administration Instructions) iopamidol (Isovue 300) 61 % contrast 30 mL 30 mL, Oral, CONTRAST ONCE, Starting on Tue07/27/22 at 1156, Until Tue07/28/22 at 1206 1000 ($ Given - Contrast - Provider: Prosper Mariscal) ketorolac (Toradol) injection 15 mg (COMPLETED) 15 mg, Intravenous, ONCE, 1 dose, On Tue07/26/22 at 0900 0852 ($ Given - Provider: Katlyn Mercedes RN) ketorolac (Toradol) injection 15 mg (COMPLETED) 15 mg, Intravenous, ONCE, 1 dose, On Tue07/27/22 at 0030 0101 ($ Given - Provider: Jesika Leon) ketorolac (Toradol) injection 30 mg (COMPLETED) 30 mg, Intravenous, ONCE, 1 dose, On Tue07/26/22 at 1615 1612 ($ Given - Provider: Katlyn Mercedes RN) lisinopril (Prinivil; Zestril) tablet 40 mg 40 mg, Oral, DAILY, First dose (after last modification) on Tue07/28/22 at 0900, Until Discontinued 0840 ($ Given - Provider: Cindy Solis RN) montelukast (Singulair) tablet 10 mg 10 mg, Oral, AT BEDTIME, First dose (after last reorder) on Tue07/27/22 at 2100, Until Discontinued 2112 ($ Given - Provider: Irma Alvarez RN) Other MED NAME: ketotifen fumarate ophthalmic solution 0.035%, instill one drop into each eye daily, Each Eye, DAILY, First dose on Tue07/27/22 at 2100, Until Discontinued 2120 ($ Given - Provider: Irma Alvarez RN) 0844 (Not Administered - Provider: Cindy Solis RN - Reason: Refused-Patient) pantoprazole EC (Protonix) tablet 40 mg 40 mg, Oral, DAILY, First dose on Tue07/26/22 at 0900, Until Discontinued, Do not crush, chew, or cut in half. 0845 (Not Administered - Provider: Katlyn Mercedes RN - Reason: NPO) 0935 (Not Administered - Provider: Leslie Bal RN - Reason: NPO - Comment: hold per md request) 0844 (Not Administered - Provider: Cindy Solis RN - Reason: Refused-Patient) pravastatin (Pravachol) tablet 40 mg 40 mg, Oral, EVERY EVENING, First dose (after last modification) on Tue07/27/22 at 1700, Until Discontinued 2112 ($ Given - Provider: Irma Alvarez RN) Continuous Medication Order 07/26/2022 07/27/2022 07/28/2022 dextrose 5 % and lactated ringers infusion () at 75 mL/hr, Intravenous, CONTINUOUS, Starting on Tue07/26/22 at 0100, Until Tue07/27/22 at 0059 0044 ($ New Bag/Syringe - Provider: Alicia Howard RN)1512 ($ New Bag/Syringe - Provider: Katlyn Mercedes RN) dextrose 5 % and lactated ringers infusion () at 75 mL/hr, Intravenous, CONTINUOUS, Starting on Tue07/27/22 at 0200, Until Tue07/27/22 at 0959 0400 ($ New Bag/Syringe - Provider: Jesika Leon)0400 (Current Rate - Provider: Jesika Leon)0612 (Current Rate - Provider: Jesika Leon) PRN Medication Order 07/26/2022 07/27/2022 07/28/2022 acetaminophen (Tylenol) tablet 650 mg 650 mg, Oral, EVERY 4 HOURS PRN, Moderate Pain, Starting on 07/25/22 at 2315, Until Tue07/28/22 at 1206, Patient preference for lesser PRN pain meds may be honored when the patient requests a less strong medication, a lower dose, or a less intrusive route of administration when the lesser drug, dose and route have been ordered for the patient. This patient request must be documented in the MAR. dextrose 10 % IV bolus(Linked Group 1) 12.5 g, at 468.75 mL/hr, Intravenous, PRN, Other, Bedside Glucose less than 70 mg/dL -If NOT able to eat and/or NPO and with IV Access, Starting on 07/25/22 at 2313, Until Tue07/28/22 at 1206, If NOT able to eat and/or NPO and with IV Access: For Bedside Glucose 54-69 mg/dL give 12.5 g Dextrose IV STAT For Bedside Glucose LESS than 54 mg/dl verify with a second Bedside Glucose (from a different site) and give 25 g Dextrose IV STAT Re-check and Re-treat blood glucose EVERY , 10-25 minutes until blood glucose GREATER than or equal to 80 mg/dl. NOTIFY PROVIDER OF HYPOGLYCEMIC EVENT. dextrose 10 % IV bolus(Linked Group 1) 25 g, at 937.5 mL/hr, Intravenous, PRN, Other, Bedside Glucose less than 70 mg/dL -If NOT able to eat and/or NPO and with IV Access, Starting on 07/25/22 at 2313, Until Tue07/28/22 at 1206, If NOT able to eat and/or NPO and with IV Access: For Bedside Glucose 54-69 mg/dL - give 12.5 g Dextrose IV STAT For Bedside Glucose LESS than 54 mg/dl - verify with a second Bedside Glucose (from a different site) and give 25 g Dextrose IV STAT Re-check and Re-treat blood glucose EVERY - 10-25 minutes until blood glucose GREATER than or equal to 80 mg/dl. - If repeat bedside glucose 54-79 give 12.5 g Dextrose IV STAT NOTIFY PROVIDER OF HYPOGLYCEMIC EVENT. glucagon (Glucagen) injection 1 mg 1 mg, Subcutaneous, PRN, Bedside Glucose less than 70 mg/dL - If NOT able to eat and/or NPO and withOUT IV Access, Starting on Tue07/25/22 at 2313, Until Tue07/28/22 at 1206, If NOT able to eat and/or NPO and NO IV Access: For Bedside glucose 54-69 mg/dL - Give 1 mg SQ For Bedside Glucose LESS than 54 mg/dl - verify with a second bedside glucose (from a different site) - Give 1 mg SQ Re-check and Re-treat blood glucose EVERY 10-25 minutes until blood glucose GREATER than or equal to 80 mg/dl. NOTIFY PROVIDER OF HYPOGLYCEMIC EVENT. Reconstitute vial with 1 mL of sterile water for injection for a final concentration of 1 mg/mL; shake vial gently; use immediately and discard unused portion glucose (Diabetic Use) (Dex4 Glucose) oral liquid Oral, PRN, Other, Bedside Glucose less than 70 mg/dL -If able to eat and does not have swallowing difficulties, Starting on Tue07/25/22 at 2313, Until Tue07/28/22 at 1206, If able to eat and can swallow thin liquids: For Bedside Glucose 54 - 69 mg/dL Give 15 grams of oral carbohydrates - 1 glucose liquid (see MAR) If patient refuses glucose liquid, then offer: - 4 ounces of fruit juice OR - 4 ounces non-diet soda OR - 8 ounces of fat-free milk For Bedside Glucose LESS than 54 mg/dL - verify with a second Bedside Glucose (from a different site) - If pt is symptomatic, do not delay treatment - If accuracy of the POC glucose is in question, confirm glucose with a STAT laboratory test. Give 30 grams of oral carbohydrates - 2 glucose liquid (see MAR) If patient refuses glucose liquid, then offer: - 8 ounces of fruit juice OR - 8 ounces non-diet soda OR - 16 ounces of fat-free milk Re-check and Re-treat blood glucose EVERY 10-25 minutes until blood glucose GREATER than or equal to 80 mg/dl. - If on recheck, bedside glucose 54-79 mg/dL - Give 15 grams of oral carbohydrates (see above for choices) NOTIFY PROVIDER OF HYPOGLYCEMIC EVENT. glucose (Diabetic Use) oral gel Oral, PRN, Other, Bedside Glucose less than 70 mg/dL -If able to eat and does not have swallowing difficulties, Starting on 07/25/22 at 2313, Until 07/28/22 at 1206, If able to eat and is better able to swallow gel: For Bedside Glucose 54 - 69 mg/dL Give 15 grams of oral carbohydrates - 1 glucose gel (see MAR) If patient refuses glucose gel, then offer: - 4 ounces of fruit juice OR - 4 ounces non-diet soda OR - 8 ounces of fat-free milk For Bedside Glucose LESS than 54 mg/dL verify with a second Bedside Glucose (from a different site) - If pt is symptomatic, do not delay treatment - If accuracy of the POC glucose is in question, confirm glucose with a STAT laboratory test Give 30 grams of oral carbohydrates - 2 glucose gels (see MAR) If patient refuses glucose gel, then offer: - 8 ounces of fruit juice OR - 8 ounces non-diet soda OR - 16 ounces of fat-free milk Re-check and Re-treat blood glucose EVERY 10-25 minutes until blood glucose GREATER than or equal to 80 mg/dl. - If on recheck, bedside glucose 54-79 mg/dL - Give 15 grams of oral carbohydrates (see above for choices) NOTIFY PROVIDER OF HYPOGLYCEMIC EVENT. glucose chew tablet 4 tablet 4 tablet (16 g), Oral, PRN, Other, Bedside Glucose less than 70 mg/dL -If able to eat and does not have swallowing difficulties, Starting on 07/25/22 at 2313, Until 07/28/22 at 1206, If able to eat and does not have swallowing difficulties: For Bedside Glucose 54 - 69 mg/dL Give 16 grams of oral carbohydrates - 4 glucose tabs (see MAR) If patient refuses glucose tabs, then offer: - 4 ounces of fruit juice OR - 4 ounces non-diet soda OR - 8 ounces of fat-free milk For Bedside Glucose LESS than 54 mg/dL - verify with a second Bedside Glucose (from a different site) - If pt is symptomatic, do not delay treatment - If accuracy of the POC glucose is in question, confirm glucose with a STAT laboratory test. Give 32 grams of oral carbohydrates - 8 glucose tabs (see MAR) If patient refuses glucose gel, then offer: - 8 ounces of fruit juice OR - 8 ounces non-diet soda OR - 16 ounces of fat-free milk Re-check and Re-treat blood glucose EVERY 10-25 minutes until blood glucose GREATER than or equal to 80 mg/dl. - If on recheck, bedside glucose 54-79 mg/dL - Give 15 grams of oral carbohydrates (see above for choices). NOTIFY PROVIDER OF HYPOGLYCEMIC EVENT. ketorolac (Toradol) injection 15 mg (CANCELED) 15 mg, Intravenous, EVERY 6 HOURS PRN, Moderate Pain, Severe Pain, Starting on Tue07/27/22 at 1320, Until Tue07/27/22 at 1544 1351 ($ Given - Provider: Leslie Bal RN) Linked Groups Order Group 1: dextrose 10 % IV bolusJump to med 12.5 g, at 468.75 mL/hr, Intravenous, PRN, Other, Bedside Glucose less than 70 mg/dL -If NOT able to eat and/or NPO and with IV Access, Starting on Tue07/25/22 at 2313, Until Tue07/28/22 at 1206, If NOT able to eat and/or NPO and with IV Access: For Bedside Glucose 54-69 mg/dL give 12.5 g Dextrose IV STAT For Bedside Glucose LESS than 54 mg/dl verify with a second Bedside Glucose (from a different site) and give 25 g Dextrose IV STAT Re-check and Re-treat blood glucose EVERY , 10-25 minutes until blood glucose GREATER than or equal to 80 mg/dl. NOTIFY PROVIDER OF HYPOGLYCEMIC EVENT. Or dextrose 10 % IV bolusJump to med 25 g, at 937.5 mL/hr, Intravenous, PRN, Other, Bedside Glucose less than 70 mg/dL -If NOT able to eat and/or NPO and with IV Access, Starting on Tue07/25/22 at 2313, Until Tue07/28/22 at 1206, If NOT able to eat and/or NPO and with IV Access: For Bedside Glucose 54-69 mg/dL - give 12.5 g Dextrose IV STAT For Bedside Glucose LESS than 54 mg/dl - verify with a second Bedside Glucose (from a different site) and give 25 g Dextrose IV STAT Re-check and Re-treat blood glucose EVERY - 10-25 minutes until blood glucose GREATER than or equal to 80 mg/dl. - If repeat bedside glucose 54- 79 give 12.5 g Dextrose IV STAT NOTIFY PROVIDER OF HYPOGLYCEMIC EVENT. documented in this encounter Care Teams Patent Solicitor Relationship Specialty Start Date End Date Pankaj Rosenberg MD [address] [facility] [address] [place] [id number] PCP - General 10/06/21 documented as of this encounter
--- OUTSIDE RECORDS SUMMARY | 2024-05-13 10:42 | XMS_ITS | Encounter Summary ---
Author Organization [facility] Address [address] [place] [address] Care Team Providers Care Endodontics Dentist Name Role Phone Pankaj Rosenberg MD Primary Care Provider [phone] Encounter Details Date Type Department Care Team (Latest Contact Info) Description 06/29/2022 1:30 PM CUSTOMER EXPERIENCE CONSULTANT - 06/29/2022 2:46 PM [facility] Hospital Encounter [facility] PAT [address] [place] [address] Carolyn Miles MD [address] [place] [address] Discharge Disposition: Home or Self Care Anesthesia Record Procedure Summary Procedure Name Responsible [...] Room 0938 ANPTO2 0948 An Stop Meds * Agents No agents on file. * Blood No blood administrations on file. Lines, Drains, and Airways Type Details Placement Removal Peripheral IV Date: 07/13/22; Time : 0644; Orientation: Anterior, Distal, Right; Placed By: MAEGAN; Tolerance: Well 07/13/22 0644 by Maria A Abreu RN 07/13/22 1118 by Mounika Perry RN ETT Date: 07/13/22; Time : 0734; Placed By: Saman Orantes; Vent: mask not [...] Monitor 07/13/22 0734 by Jenifer Coto Anes Assalexis 07/13/22 0935 by Jenifer Coto Anes Asst Peripheral IV Date: 07/13/22; Time : 734; Orientation: Right; Placed By: joann coto; Tolerance: Well, General Anesthesia 07/13/22 0735 by Jenifer Coto Anes Asst 07/13/22 1052 by Mounika Perry RN Gastric Tube 07/13/22; 0745; joann sheriff; OGT; 18; Well, General Anesthesia; 07/13/22; 0934; lashonda; Per protocol 07/13/22 0745 by Jenifer Coto Anes Asst 07/13/22 0934 by Jenifer Coto Anes Asst Procedural Site (Incision) 07/13/22; 0809; Abdomen; Laparoscopic; 07/13/22; 1727 07/13/22 0809 by Jorge A Keith RN 07/13/22 1727 by Belle, Auto Release documented in this encounter Social [...] Sign Reading Time Taken Comments Blood Pressure 148/89 06/29/2022 2:22 PM CUSTOMER EXPERIENCE CONSULTANT Pulse 86 06/29/2022 2:22 PM CUSTOMER EXPERIENCE CONSULTANT Temperature 36.9 ??C (98.5 ??F) 06/29/2022 2:22 PM CS T Respiratory Rate 18 06/29/2022 2:22 PM CUSTOMER EXPERIENCE CONSULTANT Oxygen Saturation 99% 06/29/2022 2:22 PM CUSTOMER EXPERIENCE CONSULTANT Inhaled Oxygen Concentration - - Weight 122.7 kg (270 lb 8 oz) 06/29/2022 2:22 PM CUSTOMER EXPERIENCE CONSULTANT Height 180.3 cm (5' 11 ) 06/29/2022 2:22 PM CUSTOMER EXPERIENCE CONSULTANT Body Mass Index 37.73 06/29/2022 2:22 PM CUSTOMER EXPERIENCE CONSULTANT documented in this encounter Functional Status Functional [...] No 03/18/2022 documented as of this encounter Medications at [...] 24 hours. 30 tablet 07/13/2022 10/08/2022 Lancets (AVIATOUCH DELICA PLUS 33G EXTRA FINE LANCET) USE [...] 07/29/19 23 documented as of this encounter Plan of Treatment Not on file documented as of this encounter Results * TYPE + SCREEN PANEL (06/29/2022 3:04 PM CUSTOMER EXPERIENCE CONSULTANT) Antibody Screen NEG 3 4:02 PM [facility] ABO Rh O POS 06/29/2022 4:02 PM [facility] Blood Bank BLOOD SPECIMEN / Unknown Lab Venipuncture / Unknown 06/29/2022 3:04 PM CUSTOMER EXPERIENCE CONSULTANT 06/29/2022 3:07 PM CUSTOMER EXPERIENCE CONSULTANT Marla Richard AUTOMATIC SCREWMAKER-ALUMINUM MOLDER LAB - BLOOD BANK ORDERABLES [facility] B[facility]OD [facility] LAB [address] [place] [address], [facility] [phone] * (ABNORMAL) CBC W/O DIFFERENTIAL (06/29/2022 3:04 PM CUSTOMER EXPERIENCE CONSULTANT) WBC 9.6 3.5 - 10.5 10? 3 /uL 06/29/2022 3:31 PM [facility] RBC 5.15 4.30 - 5.70 10? 6 /uL 06/29/2022 3:31 PM [facility] Hemoglobin 13.5 12.0 - 17.6 g/dL 06/29/2022 3:31 PM [facility] Hematocrit 41.7 35.2 - 51.7 % 06/29/2022 3:31 PM [facility] MCV 81.0 80.7 - 98.3 fL 06/29/2022 3:31 PM [facility] MCH 26.2(L) 26.7 - 34.0 pg 06/29/2022 3:31 PM [facility] MCHC 32.4 30.8 - 35.9 g/dL 06/29/2022 3:31 PM [facility] RDW-SD 40.5 36.0 - 50.0 fL 06/29/2022 3:31 PM [facility] RDW-CV 14.0 11.2 - 14.8 % 06/29/2022 3:31 PM [facility] Platelet Count 359 150 - 400 10? 3 /uL 06/29/2022 3:31 PM [facility] MPV 10.3 9.4 - 12.9 fL 06/29/2022 3:31 PM [facility] nRBC Absolute 0.00 0 10? 3 /uL 06/29/2022 3:31 PM [facility] nRBC Auto 0.0 0 /100 WBC 06/29/2022 3:31 PM [facility] Blood BLOOD SPECIMEN / Unknown Lab Venipuncture / Unknown 06/29/2022 3:04 PM CUSTOMER EXPERIENCE CONSULTANT 06/29/2022 3:26 PM CUSTOMER EXPERIENCE CONSULTANT Marla Richard AUTOMATIC SCREWMAKER-ALUMINUM MOLDER LAB - HEMATOLOGY ORDERABLES [facility] [address] [place] [address], [facility] [phone] * (ABNORMAL) BASIC METABOLIC PANEL (CALCIUM TOTAL) (06/29/2022 3:04 PM CUSTOMER EXPERIENCE CONSULTANT) BUN 11 7 - 26 mg/dL 06/29/2022 3:52 PM [facility] Creatinine 0.63(L) 0.71 - 1.16 mg/dL 06/29/2022 3:52 PM [facility] Sodium 139 136 - 145 mmol/L 06/29/2022 3:52 PM [facility] Potassium 4.0 3.5 - 4.5 mmol/L 06/29/2022 3:52 PM [facility] Chloride 105 98 - 107 mmol/L 06/29/2022 3:52 PM [facility] CO2 23 22 - 29 mmol/L 06/29/2022 3:52 PM [facility] Glucose 150(H) 70 - 115 mg/dL 06/29/2022 3:52 PM [facility] Calcium 9.7 8.4 - 10.2 mg/dL 06/29/2022 3:52 PM [facility] Anion Gap 15 8 - 18 06/29/2022 3:52 PM [facility] BUN/Creatinine Ratio 17 7 - 23 06/29/2022 3:52 PM [facility] Osmolality Calculated 290 270 - 300 mOsm/kg 06/29/2022 3:52 PM [facility] eGFR by CKD-EPI >90 >=90 mL/min/1.7 3 m2 06/29/2022 3:52 PM [facility] Blood BLOOD SPECIMEN / Unknown Lab Venipuncture / Unknown 06/29/2022 3:04 PM CUSTOMER EXPERIENCE CONSULTANT 06/29/2022 3:26 PM CUSTOMER EXPERIENCE CONSULTANT Marla Richard AUTOMATIC SCREWMAKER-ALUMINUM MOLDER LAB - CHEMISTRY ORDERABLES [facility] [address] [place] [address], [facility] [phone] documented in this encounter Visit Diagnoses Diagnosis Pre-op evaluation- Primary Preoperative examination, unspecified documented in this encounter Care Teams Endodontics Dentist Relationship Specialty Start Date End Date Pankaj Rosenberg MD [facility] [address] [place] [address] PCP - General 10/06/21 documented as of this encounter
--- OUTSIDE RECORDS SUMMARY | 2024-05-13 10:42 | XMS_ITS | Encounter Summary ---
Author Organization [facility] Address [address] [place] [address] Care Team Providers Care Warp Changer Name Role Phone Pankaj Rosenberg MD Primary Care Provider [phone] Reason for Visit * Auth/Cert (Routine) Specialty Diagnoses / Procedures Referred By Horacio t Referred To Contact Diagnoses Gallbladder polyp Gallbladder polyp Procedures LAPAROSCOPIC CHOLECYSTECTOMY Referral ID Status Reason Start Date Expiration Date Visits Re quested Visits Authorized [id number] 1 1 Encounter Details Date Type Department Care Team (Latest Contact Info) Description 07/13/2022 5:27 AM [facility] - 07/13/2022 11:27 AM [facility] Hospital Encounter [facility] [address] [place] [address] Carolyn Miles MD [address] [place] [address] Surgery General Discharge Disposition: Home or Self Care Social [...] Sign Reading Time Taken Comments Blood Pressure 117/72 07/13/2022 11:10 AM [facility] Pulse 90 07/13/2022 11:10 AM [facility] Temperature 37.1 ??C (98.7 ??F) 07/13/2022 1 0:39 AM [facility] Respiratory Rate 18 07/13/2022 11:1 0 AM [facility] Oxygen Saturation 94% 07/13/2022 11: 10 AM [facility] Inhaled Oxygen Concentration - - Weight 121.2 kg (267 lb 4.8 oz) 07/13/2022 6:01 AM [facility] Height 180.3 cm (5' 11 ) 07/13/2022 6:01 AM [facility] Body Mass Index 37.28 07/13/2022 6:01 AM [facility] PEELER documented in this encounter Functional Status Functional [...] Blue Surgery Pre-Op History and Physical Chuck Barlow Age: [age] year old male Date of [...] complication, without long-term current use of insulin ([facility]) 06/16/2021 last A1C 5.6 1 month ago [...] 07/13/22 121.2 kg (267 lb 4.8 oz) 02/14/23 122.7 kg (270 lb 8 oz) 06/17/22 [...] for input(s): INR, PTT in the last 84461 hours. Radiology Impressions: U/S 08/18/2021- found in [...] pancreas without gross abnormality ? Gulshan Owusu, DO PGY-1 General Surgery 07/12/2022 6:06 AM [facility] Associated attestation - Carolyn Miles MD - 07/13/2022 7:07 AM [facility] I have seen and examined the patient [...] Jessica Vogel MD - Resident - Assisting Signaler(s): Dylan [id number] Anesthesia Type: general ETT Complications: none Findings: Small gallbladder, no inflammation, no cystic artery identified EBL: minimal blood loss Urine Output : None IV Fluid Intake: per anesthesia Drains: None Specimen(s): ID Type Source Tests Collected by Time Destination A : GALLBLADDER Resection without Tumor Gallbl[place] [id number] Implant(s): None Serena Farmer MD [facility] * Operative - Carolyn Miles MD - [...] The cystic plate was cleared more than prison up the gallbladder. There was a single [...] PACU. Carolyn Miles MD 07/13/2022 9:08 AM [facility] documented in this encounter Miscellaneous Notes * Clinical References ARTURO - Mounika Luke RN - 07/13/2022 10:54 AM [facility] [id number] Discharge Instructions for Laparoscopic Gallbladder Removal Surgery [...] Leg swelling Last Reviewed Date: 2021 ?? [id number] [employer]. All rights reserved. This information is not intended as a substitute for professional medical care. Always follow your healthcare professional's instructions. [facility] documented in this encounter Plan of Treatment Not on file documented as of this encounter Procedures Procedure Name Priority Date/Time Associated Diagnosis Comments GLUCOSE - POINT OF CARE Routine 07/13/2022 9:54 AM [facility] PATHOLOGY TISSUE Routine 07/13/2022 9:02 AM [facility] Gallbladder polyp NE LAP,CHOLECYSTECTO MY 07/13/2022 7:53 AM [facility] Gallbladder polyp Special Needs SUPINE 2/20am TYPE + SCREEN PANEL ISAAC 07/13/2022 6:35 AM [facility] Pre-op exam GLUCOSE - POINT OF CARE Routine 07/13/2022 6:16 AM [facility] documented in this encounter Results * (ABNORMAL) GLUCOSE - POINT OF CARE (07/13/2022 9:54 AM [facility]) Glucose WB/POC 154(H) 70 - 115 mg/dL 07/13/2022 10:00 AM [facility] Specimen Type Cap Fingerstick 2022 10:00 AM [facility] Blood BLOOD SPECIMEN / Unknown 07/13/2022 9:54 AM [facility] 07/13/2022 10:00 AM [facility] Carolyn Miles MD LAB - POINT OF CARE ORDERABLES Performing Organization Address [facility] de Phone Number [facility] [address] [place], [place] [address], [facility] [phone] * PATHOLOGY TISSUE (07/13/2022 9:02 AM [facility]) Pathologist [facility] Case Report Surgical Pathology Report ? Case: [id number] ? Authorizing Provider: ??Carolyn Miles MD ? Collected: ? 07/13/2022 09:02 AM ? Ordering Location: ? [facility] ?Received: ?07/13/2022 10:25 AM ? Pathologist: ? Gene Guardado MD ? Specimen: ?Gallbladder, GALLBLADDER ? 07/16/2022 1:33 PM [facility] PATHOLOGY LAB Final Diagnosis Gallbladder, cholecystectomy (A): - Mild chronic cholecystitis 07/16/2022 1:33 PM [facility] PATH[facility] Microscopic Description and Comment Microscopic examination substantiates the final diagnosis. No polyp identified grossly. 07/16/2022 1:33 PM [facility] PATH[facility] Clinical History The patient is is a 27 year old male who presents with hx of gallbladder polyps recently getting larger on last ultrasound. The patient underwent cholecystectomy 07/16/2022 1:33 PM [facility] PATH[facility]Y [facility] Gross Description Requisition and specimen [...] wall thickness is up to 0.2 cm. Net Repairer section is submitted in cassette [id number]. /MA Additional sections are submitted in cassettes A3. /ME 07/16/2022 1:33 PM [facility] PATH[facility] Disclaimer The performance characteristics of all immunohistochemical and indirect immunofluorescence stains (if any) cited in this report were determined by the Histopathology Laboratory of [facility]. Some of these tests were developed by [...] the attending (teaching) pathologist. 07/16/2022 1:33 PM [facility] PATHOLOGY LAB Embedded Images 07/16/2022 1:33 PM [facility] PATH[facility]Y LAB Resection without Tumor ENTIRE GALLBLADDER / Unknown 07/13/2022 9:02 AM [facility] 07/13/2022 10:25 AM [facility] Comment:Pre-op diagnosis: Gallbladder polyp Carolyn Miles MD LAB - PATHOLOGY/CYTO LOGY ORDERABLES Performing Organization Address City/[facility]/ZIP Co de Phone Number [facility] PATHOLOGY LAB [address] [place] [address], [facility] [phone] * TYPE + SCREEN PANEL (07/13/2022 6:35 AM [facility]) Antibody Screen NEG 7:27 AM [facility] BLOOD [facility] LAB ABO Rh O POS 07/13/2022 7:27 AM [facility] B[facility]OD [facility] LAB Blood Bank BLOOD SPECIMEN / Unknown Venipuncture / Unknown 07/13/2022 6:35 AM [facility] 07/13/2022 6:47 AM [facility] Marla Richard APRN-PRIVATE ADVISOR LAB - BLOOD BANK ORDERABLES Performing Organization Address [facility]/ZIP Co de Phone Number [facility] B[facility]OD [facility] LAB [address] [place] [address], [facility] [phone] * (ABNORMAL) GLUCOSE - POINT OF CARE (07/13/2022 6:16 AM [facility]) Glucose WB/POC 139(H) 70 - 115 mg/dL 07/13/2022 6:20 AM [facility] Specimen Type Venous 07/13/2022 6:20 AM [facility] Blood BLOOD SPECIMEN / Unknown 07/13/2022 6:16 AM [facility] 07/13/2022 6:20 AM [facility] Carolyn Miles MD LAB - POINT OF CARE ORDERABLES Performing Organization Address City/[facility]/ZIP Co de Phone Number [facility] [address] [place] [address], [place] [phone] documented in this encounter Visit Diagnoses Diagnosis Pre-op exam- Primary Preoperative examination, unspecified Gallbladder polyp Cholesterolosis of gallbladder documented in [...] must be documented in the MAR., PACU dexAMETHasone (Decadron) injection 4 mg 4 mg, Intravenous, ONCE PRN, Nausea/Vomiting, 1 dose, Starting on Tue07/13/22 at 0955, Until Tue07/13/22 at 1227, Third choice, use if first and second choice was ineffective., PACU fentaNYL (PF) (Sublimaze) injection 25 mcg 25 [...] MAR., PACU $ Given 07/13/2022 10:15 AM [facility] 25 mcg $ Given 07/13/2022 10:00 AM [facility] 25 mcg fentaNYL (PF) (Sublimaze) injection 50 [...] at 1227, Pre-op Restarted 07/13/2022 7:24 AM [facility] $ New Bag/Syringe 07/13/2022 6:58 AM [facility] 20 mL/ hr naloxone (Narcan) injection 0.04 mg 0.04 mg, [...] the MAR. $ Given 07/13/2022 10:46 AM [facility] 5 mg prochlorperazine (Compazine) injection 10 mg 10 mg, Intravenous, ONCE PRN, Nausea/Vomiting, 1 dose, Starting on Tue07/13/22 at 0955, Until Tue07/13/22 at 1227, First choice, PACU throat lozenge 1 lozenge 1 lozenge, Oral, EVERY 1 HOUR PRN, Sore Throat, Starting on Tue07/13/22 at 0955, Until Tue07/13/22 at 1227, PACU documented in this encounter Active and Recently Administered Medications Times are shown in [facility]. Scheduled Medication Order 07/11/2022 07/12/2022 07/13/2022 naloxone [...] Abreu RN)0723 (Paused - Provider: Saman Orantes Assalexis - Comment: Switch to gravity)0724 (Restarted - Provider: Saman Orantes)0932 (Anesthesia Volume Adjustment - Provider: Saman Orantes) [...] 1000 ($ Given - Prov ider: Lissa Degroot)1015 ($ Given - Provider: Lissa Degroot) fentaNYL [...] PACU documented in this encounter Care Teams Warp Changer Relationship Specialty Start Date End Date Pankaj Rosenberg MD [address] [facility] [address] [place] [address] PCP - General 10/06/21 documented as of this encounter
--- OUTSIDE RECORDS SUMMARY | 2024-05-13 10:42 | XMS_ITS | Encounter Summary ---
Author Organization [facility] Address [address] [place] [address] Care Team Providers Care Corrections Corporal Name Role Phone Pankaj Rosenberg MD Primary Care Provider [phone] Encounter Details Date Type Department Care Team (Latest Contact Info) Description 06/29/2022 Travel Social History Tobacco Use Types Packs/Day Years [...] on filedocumented in this encounter Care Teams Corrections Corporal Relationship Specialty Start Date End Date Pankaj Rosenberg MD [address] [address] PCP - General 10/06/21 documented as of this encounter
--- OUTSIDE RECORDS SUMMARY | 2024-05-13 10:42 | XMS_ITS | Encounter Summary ---
Author Organization [facility] Address [address] [facility] [place] [address] Care Team Providers Care Bag Machine Operator Name Role Phone Pankaj Rosenberg MD Primary Care Provider [phone] Reason for Visit * Reason Onset Date Comments Results 07/19/2022 Encounter Details Date Type Department Care Team (Late st Contact Info) Description 07/19/2022 Telephone [facility] [address] [place] [address] Carolyn Miles MD [address] [place] [address] Results (/) Social History Tobacco Use Types Packs/Day Years [...] No 07/13/2022 documented as of this encounter Miscellaneous Notes * Telephone Encounter - Carolyn Miles MD - 07/19/2022 9:20 AM CST Called to discuss pathology results. Mild chronic kirstie. Girlfriend and patient had a few days of n/v/d- possibly viral. Feeling better today. Plan to see him in clinic for wound check. Carolyn Miles MD 07/19/2022 9:23 AM E FIGHTER documented in this encounter Plan of Treatment Not on file documented as of this encounter Visit Diagnoses Not on filedocumented in this encounter Care Teams Bag Machine Operator Relationship Specialty Start Date End Date Pankaj Rosenberg MD [address] [address] PCP - General 10/06/21 documented as of this encounter
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
--- OUTSIDE RECORDS SUMMARY | 2024-05-13 10:42 | XMS_ITS | Referral Summary ---
Author Organization [facility] Address [address] [place] [address] Care Team Providers Care Mortgage Accounting Clerk Name Role Phone Pankaj Rosenberg MD Primary Care Provider [phone] Source Comments [facility],non-owned Affiliates and Associated Physician Practices is amultiple site organization consisting of ambulatory clinics and hospital sitesin [place], [place], [place] and [place]. This disclosure is being madepursuant to the Care Everywhere program and may not contain all information available regarding this patient. Last updated 18.[facility] [employer] Allergies No known active allergies Medications * [...] gently Restart Allergy medications once cleared by Senior Construction Manager PROCEDURE PERFORMED: Septoplasty Submucosal Reduction of Inferior Turbinates bilaterally Last Assessment & Plan: Continue nasal saline 2-3 times per day May blow nose gently Restart Allergy medications once cleared by Senior Construction Manager PROCEDURE PERFORMED: Septoplasty Submucosal Reduction of Inferior [...] surgery. Added automatically from request for surgery [id number] Allergic rhinitis 10/22/2019 Overview (09/16/2021): Last Assessment & Plan: Continue nasal saline 2-3 times per day May blow nose gently Restart Allergy medications once cleared by Senior Construction Manager Last Assessment & Plan: Continue nasal saline 2-3 times per day May blow nose gently Restart Allergy medications once cleared by Senior Construction Manager Elbow problem 09/10/2013 Insomnia 09/10/2013 Resolved Problems [...] and heating? Not hard at all 07/27/2022 [facility] of Occupat ional Health - Occupational Stress [...] place to sleep or slept in a fdc (including now)? No 07/27/2022 Sex and Gender [...] Mass Index 36.26 10/07/2022 4:29 PM CDT Functional Status Functional Status Response Date of [...] person have difficulty concentrating/remembering/making decisions? No 07/27/2022 Plan of Treatment Not on file Procedures Procedure Name Priority Date/Time Associated Diagnosis Comments COMPREHENSIVE METABOLIC PANEL STAT 10/07/2022 5:34 PM CDT HEMOGLOBIN A1C ISAAC 07/26/2022 3:44 AM CDT from Last 3 Months or Most Recently Relevant to Health Maintenance Results * (ABNORMAL) COMPREHENSIVE METABOLIC PANEL (10/07/2022 5:34 PM CDT) BUN 16 7 - 26 mg/dL 10/07/2022 6:08 PM [facility] Creatinine 0.76 0.71 - 1.16 mg/dL 10/07/2022 6:08 PM [facility] Sodium 138 136 - 145 mmol/L 10/07/2022 6:08 PM [facility] Potassium 4.3 3.5 - 4.5 mmol/L 10/07/2022 6:08 PM [facility] Chloride 103 98 - 107 mmol/L 10/07/2022 6:08 PM [facility] CO2 23 22 - 29 mmol/L 10/07/2022 6:08 PM [facility] Glucose 116(H) 70 - 115 mg/dL 10/07/2022 6:08 PM [facility] Calcium 10.5(H) 8.4 - 10.2 mg/dL 10/07/2022 6:08 PM [facility] Protein Total 8.7(H) 6.0 - 8.3 g/dL 10/07/2022 6:08 PM [facility] Albumin 4.5 3.4 - 5.0 g/dL 10/07/2022 6:08 PM [facility] Bilirubin Total 1.0 0.2 - 1.2 mg/dL 10/07/2022 6:08 PM [facility] Alkaline Phosphatase 98 40 - 150 U/L 10/07/2022 6:08 PM [facility] ALT 40 5 - 55 U/L 10/07/2022 6:08 PM [facility] AST 23 5 - 34 U/L 10/07/2022 6:08 PM [facility] Anion Gap 16 8 - 18 10/07/2022 6:08 PM [facility] BUN/Creatinine Ratio 21 7 - 23 10/07/2022 6:08 PM [facility] Osmolality Calculated 288 270 - 300 mOsm/kg 10/07/2022 6:08 PM [facility] Albumin/Globulin Ratio 1.1 1.1 - 2.3 10/07/2022 6:08 PM [facility] eGFR by CKD-EPI >90 >=90 mL/min/1.7 3 m2 10/07/2022 6:08 PM [facility] Blood BLOOD SPECIMEN / Unknown Venipuncture / Unknown 10/07/2022 5:34 PM CDT 10/07/2022 5:40 PM T Bharati Delaney PA-C LAB - CHEMISTRY ORD ERABLES [facility] [address] [place] [address], [facility] [phone] * (ABNORMAL) HEMOGLOBIN A1C (07/26/2022 3:[address] [facility]) Hemoglobin A1c 6.3(H) <=5.6 % 07/26/2022 11:04 AM [facility] Estimated Average Glucose 134 mg/dL 07/26/2022 11:04 AM [facility] Comment: HbA1c Interpretation: Normal : < 5.7% Pre-diabetes: 5.7-6.4% Diabetes: Equal to or greater than 6.5% Test results diagnostic of diabetes should be repeated for confirmation. Treatment target values recommended by ADA and other clinical organizations should be used to evaluate metabolic control in patients. Reference: [place] Diabetes Association, Standards of Care in Diabetes [...] Gray MD LAB - CHEMISTRY [facility] Organization Address City/State/ZIP Co de Phone Number [facility] [address] [place] [address], [facility] [phone] from Last 3 Months or Most Recently [...] 5:54 PM 09/22/2021 10:49 AM Care Teams Mortgage Accounting Clerk Relationship Specialty Start Date End Date Pankaj Rosenberg MD [address] [address] PCP - General 10/06/21
--- OUTSIDE RECORDS SUMMARY | 2024-05-13 10:42 | XMS_ITS | Encounter Summary ---
Author Organization [facility] Address [address] [place] [address] Care Team Providers Care Environmental Monitoring Specialist Name Role Phone Pankaj Rosenberg MD Primary Care Provider [phone] Encounter Details Date Type Department Care Team (Latest Contact Info) Description 06/29/2022 2:47 PM FRONT DESK SUPERVISOR - 06/29/2022 11:59 PM [facility] Hospital Encounter [facility] OP DRAW STATION [address] [place] [address] Carolyn Miles MD [address] [place] [address] Discharge Disposition: Home or Self Care Social [...] daily as needed for Constipation 07/13/2022 07/29/19 documented as of this encounter Plan of Treatment Not on file documented as of this encounter Procedures Procedure Name Priority Date/Time Associated Diagnosis Comments TYPE + SCREEN PANEL Routine 06/29/2022 3 :04 PM FRONT DESK SUPERVISOR Pre-op evaluation CBC W/O DIFFERENTIAL Routine 06/29/2022 3:04 PM FRONT DESK SUPERVISOR Pre-op evaluation BASIC METABOLIC PANEL (CALCIUM TOTAL) Routine 06/29/2022 3:04 PM FRONT DESK SUPERVISOR Pre-op evaluation documented in this encounter Results * TYPE + SCREEN PANEL (06/29/2022 3:04 PM FRONT DESK SUPERVISOR) Pathologist [facility] Antibody Screen NEG 3 4:02 PM FRONT DESK SUPERVISOR [facility] ABO Rh O POS 06/29/2022 4:02 PM FRONT DESK SUPERVISOR [facility] Blood Bank BLOOD SPECIMEN / Unknown Lab Venipuncture / Unknown 06/29/2022 3:04 PM FRONT DESK SUPERVISOR 06/29/2022 3:07 PM FRONT DESK SUPERVISOR Marla Richard HSE ADVISOR-CRAYON MOLDING MACHINE OPERATOR LAB - BLOOD BANK ORDERABLES [facility] [address] [place] [address], [place] [phone] * (ABNORMAL) CBC W/O DIFFERENTIAL (06/29/2022 3:04 PM FRONT DESK SUPERVISOR) Pathologist [facility] WBC 9.6 3.5 - 10.5 10? 3 /uL 06/29/2022 3:31 PM FRONT DESK SUPERVISOR [facility] RBC 5.15 4.30 - 5.70 10? 6 /uL 06/29/2022 3:31 PM [facility] Hemoglobin 13.5 12.0 - 17.6 g/dL 06/29/2022 3:31 PM [facility] Hematocrit 41.7 35.2 - 51.7 % 06/29/2022 3:31 PM [facility] MCV 81.0 80.7 - 98.3 fL 06/29/2022 3:31 PM [facility] MCH 26.2(L) 26.7 - 34.0 pg 06/29/2022 3:31 PM [facility] MCHC 32.4 30.8 - 35.9 g/dL 06/29/2022 3:31 PM [facility] RDW-SD 40.5 36.0 - 50.0 fL 06/29/2022 3:31 PM [facility] RDW-CV 14.0 11.2 - 14.8 % 06/29/2022 3:31 PM [facility] Platelet Count 359 150 - 400 10? 3 /uL 06/29/2022 3:31 PM [facility] MPV 10.3 9.4 - 12.9 fL 06/29/2022 3:31 PM [facility] nRBC Absolute 0.00 0 10? 3 /uL 06/29/2022 3:31 PM [facility] nRBC Auto 0.0 0 /100 WBC 06/29/2022 3:31 PM [facility] Blood BLOOD SPECIMEN / Unknown Lab Venipuncture / Unknown 06/29/2022 3:04 PM FRONT DESK SUPERVISOR 06/29/2022 3:26 PM [facility] Marla Richard HSE ADVISOR-CRAYON MOLDING MACHINE OPERATOR LAB - HEMATOLOGY ORDERABLES [facility] [address] [place] [address], [place] [phone] * (ABNORMAL) BASIC METABOLIC PANEL (CALCIUM TOTAL) (06/29/2022 3:04 PM FRONT DESK SUPERVISOR) BUN 11 7 - 26 mg/dL 06/29/2022 3:52 PM [facility] Creatinine 0.63(L) 0.71 - 1.16 mg/dL 06/29/2022 3:52 PM [facility] Sodium 139 136 - 145 mmol/L 06/29/2022 3:52 PM [facility] Potassium 4.0 3.5 - 4.5 mmol/L 06/29/2022 3:52 PM [facility] Chloride 105 98 - 107 mmol/L 06/29/2022 3:52 PM [facility] CO2 23 22 - 29 mmol/L 06/29/2022 3:52 PM [facility] Glucose 150(H) 70 - 115 mg/dL 06/29/2022 3:52 PM [facility] Calcium 9.7 8.4 - 10.2 mg/dL 06/29/2022 3:52 PM [facility] Anion Gap 15 8 - 18 06/29/2022 3:52 PM [facility] BUN/Creatinine Ratio 17 7 - 23 06/29/2022 3:52 PM [facility] Osmolality Calculated 290 270 - 300 mOsm/kg 06/29/2022 3:52 PM [facility] eGFR by CKD-EPI >90 >=90 mL/min/1.7 3 m2 06/29/2022 3:52 PM [facility] Blood BLOOD SPECIMEN / Unknown Lab Venipuncture / Unknown 06/29/2022 3:04 PM FRONT DESK SUPERVISOR 06/29/2022 3:26 PM [facility] Marla Richard HSE ADVISOR-CRAYON MOLDING MACHINE OPERATOR LAB - CHEMISTRY ORDERABLES Performing Organization Address [facility]/ZIP Co de Phone Number [facility] [address] [place] [address] [phone] documented in this encounter Visit Diagnoses Diagnosis Pre-op evaluation Preoperative examination, unspecified documented in this encounter Care Teams Environmental Monitoring Specialist Relationship Specialty Start Date End Date Pankaj Rosenberg MD [address] [facility] [address] [place] [address] PCP - General 10/06/21 documented as of this encounter
--- OUTSIDE RECORDS SUMMARY | 2024-05-13 10:42 | XMS_ITS | Encounter Summary ---
Author Organization [facility] Address [address] [place] [address] Care Team Providers Care Top Polisher Name Role Phone Pankaj Rosenberg MD Primary Care Provider [phone] Reason for Visit * Reason Comments Establish Care Gallbladder polyp * Consult, Test & Treat (Routine) - Closed Specialty Diagnoses / Procedures Referred By Horacio espinoza Referred To Contact General Surgery Diagnoses [place] [id number] [facility] [address] [place] [id number] Referral ID Status Reason Start Date Expiration Date Visits Re quested Visits Authorized [id number] Closed 04/30/2022 04/30/2023 1 1 Encounter Details Date Type Department Care Team (Late st Contact Info) Description 06/17/2022 9:30 AM CORKING MACHINE OPERATOR Office Visit [facility] General Surgery [address] [facility] [place] [id number] Carolyn Miles MD [address] [place] [address] Gallbladder polyp (Primary Dx) Social History Tobacco Use Types [...] Sign Reading Time Taken Comments Blood Pressure 158/97 06/17/2022 9:35 AM CORKING MACHINE OPERATOR Pulse 102 06/17/2022 9:35 AM CORKING MACHINE OPERATOR Temperature 37.1 ??C (98.7 ??F) 06/17/2022 9:35 AM CS T Respiratory Rate - - Oxygen Saturation - - Inhaled Oxygen Concentration - - Weight 122.5 kg (270 lb) 06/17/2022 9:35 AM CORKING MACHINE OPERATOR Height 180.3 cm (5' 11 ) 06/17/2022 9:35 AM CORKING MACHINE OPERATOR Body Mass Index 37.66 06/17/2022 9:35 AM CORKING MACHINE OPERATOR documented in this encounter Functional Status Functional [...] as of this encounter Progress Notes * Carolyn Miles MD - 06/17/2022 9:53 AM CST Images from the original note were not included. Surgical Oncology History and Physical Encounter Date: 06/17/2022 Patient's Primary Care Physician: Pankaj Rosenberg MD Name: Chuck Barlow Age: [age] year old Sex: male Chief Complaint: Gallbladder polyps Assessment and Plan: Mr. Chuck Barlow is a 27yo male with hx of gastroschisis and small bowel obstruction with multiple growing polyps. - Discussed plan for laparoscopic vs open cholecystectomy - Risks and benefits were discussed including hollow viscous injury, bile leak, common bile duct injury, intraabdominal infection among others. He has had multiple surgeries previously, we discussed the potential of needing adhesiolysis History of Present Illness Chuck Barlow is a 27 year old male with hx of gastroschisis, small bowel obstruction (s/p laparotomy small bowel resection). Who presents for discussion cholecystectomy in the setting of gallbladder polyps. He states these have been followed for some time, but have recently gotten larger. He was admitted to [facility] 03/2022 for small bowel obstruction which was treated with exploration and small bowel resection. Since that time he has been doing well. He does not have any pain with meals, nausea or vomiting. He states he has intermittent abdominal pain which he has attributed to his other surgical history. His previous imaging from 01/03 showed a 0.6cm polyp, and repeat us 09/04 showed a 7.8 x 6.3x 8.4 mm polyp, with a second non-mobile foci. There was not any findings of cholecystitis on last imaging. Past Medical History: Past Medical History: Diagnosis Date ??? Arthrogryposis 06/15/2021 ??? Controlled type 2 diabetes mellitus without complication, without long-term current use of insulin ([facility]) 06/16/2021 ??? 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 KARRIE (obstructive sleep apnea) 09/12/2021 Past Surgical Hisotry: Past Surgical History: Procedure Laterality Date ??? Laparotomy N/A 09/17/2021 N/A; LAPAROTOMY EXPLORATORY, BOWEL RESECTION, ENTROLYSIS Family History: No family history pertinent to this episode Social History: Social History Occupational History ??? Not on file Tobacco Use ??? Smoking status: Never ??? Smokeless tobacco: Former Types: Chew Quit date: 09/15/2020 Vaping Use ??? Vaping Use: Never used Substance and Sexual Activity ??? Alcohol use: Yes Comment: occ ??? Drug use: Never ??? Sexual activity: Not on file Current medications: Current Outpatient Medications on File Prior to Visit Medication Sig Dispense Refill ??? Alcohol Swabs (ALCOHOL PREP) 70 % USE 1 SWAB TO CLEAN SKIN TWICE DAILY BEFORE TESTING (Patient not taking: Reported on 06/17/2022) 100 Each PRN ??? amLODIPine (NORVASC) 10 MG tablet Take 1 (one) tablet by mouth once daily ??? blood glucose (FloorPrep SolutionsTOUCH VERIO) test strip USE 1 STRIP TO CHECK BLOOD SUGAR TWICE DAILY Reasons:FOR DIABETES EDUCATION (Patient not taking: Reported on 06/17/2022) 100 strip PRN ??? Blood Glucose Monitoring Suppl (FloorPrep SolutionsTOUCH VERIO REFLECT) w/Device KIT Use 1 Units 2 times daily USE MACHINE TO CHECK BLOOD SUGAR TWICE DAILY (Patient not taking: Reported on 06/17/2022) 1 kit 0 ??? Lancets (FloorPrep SolutionsTOUCH DELICA PLUS 33G EXTRA FINE LANCET) USE 1 LANCET TO PRICK FINGER TWICE DAILY BEFORE TESTING 100 Each PRN ??? lisinopril (PRINIVIL; ZESTRIL) 40 MG tablet Take 1 (one) tablet by mouth once daily ??? montelukast (SINGULAIR) 10 MG tablet Take 1 (one) tablet by mouth at bedtime ??? oxyCODONE, immediate release, (Roxicodone) 5 MG tablet Take 1 (one) tablet by mouth every 6 hours as needed for Pain (Patient not taking: Reported on 06/17/2022) 7 tablet 0 ??? polyethylene glycol 3350 (MIRALAX) 17 GM/SCOOP powder Take 17 (seventeen) g by mouth once daily(Patient not taking: Reported on 06/17/2022) 238 g 0 ??? pravastatin (PRAVACHOL) 40 MG tablet Take 1 tablet by mouth every evening (Patient not taking: Reported on 06/17/2022) ??? SALINE NASAL SPRAY NA ??? SITagliptin (JANUVIA) 25 MG tablet Take 1 (one) tablet by mouth once daily No current facility-administered medications on file prior to visit. Allergies: No allergies Review of Systems Constitutional: Negative for fatigue, weight loss, fevers, chills, anorexia. Eyes: Negative for changes in vision or ocular discharge Ears: Negative for ear pain Nose: Negative for rhinorrhea, epistaxis Mouth: Negative for sores Throat: Negative for sore throat Respiratory: Negative for shortness of breath, acute cough, asthma, wheezing Cardiovascular: Negative for chest pain, cyanosis Gastrointestinal: Negative for nausea, vomiting, hemetemesis, hematochezia, abdominal pain, constipation, diarrhea Genitourinary: Negative for dysuria, hematuria Skin: Negative for rash Hematologic/lymphatic: Negative for easy bruising Musculoskeletal:Negative for joint pain, muscle pain Neurological: Negative for headaches, seizures Physical Examination: BP 158/97 Pulse 102 Temp 98.7 ??F (37.1 ??C) (Temporal) Ht 1.803 m (5' 11 ) Wt 122.5 kg (270 lb) Exam GEN: NAD, well appearing HEENT: NC/AT, no ocular discharge, non-erythematous posterior pharynx Neck: Supple, no thyromegaly Resp: CTAB, non-labored on room air CV: RRR, no m/r/g Abd: Soft, NT/ND, well healed vertical midline incision Ext: no cyanosis, clubbing, or edema Neuro: A&Ox3, grossly intact Psych: appropriate mood and affect Labs No new labs Imaging: U/S 08/18/2021- found in media tabs Impression: [...] 4. Partially visualized pancreas without gross abnormality Carolyn Miles MD 06/17/2022 9:53 AM ING MACHINE OPERATOR documented in this encounter Plan of Treatment Not on file documented as of this encounter Visit Diagnoses Diagnosis Gallbladder polyp- Primary Cholesterolosis of gallbladder documented in this encounter Care Teams Top Polisher Relationship Specialty Start Date End Date Pankaj Rosenberg MD [facility] [facility] [address] [place] [address] PCP - General 10/06/21 documented as of this encounter
--- OUTSIDE RECORDS SUMMARY | 2024-05-13 10:42 | XMS_ITS | Encounter Summary ---
Author Organization [facility] Address [address] [place] [address] Care Team Providers Care Track Laying Machine Operator Name Role Phone Pankaj Rosenberg MD Primary Care Provider Reason for Visit * Reason Comments Pain Abdominal Pt c/o sharp abdomin al pain around his belly button X 1 day. Pt reports hx bowel resection in September feels the same as when I needed this pt reports hot flashes, n/v. Pt denies fever, chills * Auth/Cert (Routine) Specialty Diagnoses / Procedures Referred By Horacio t Referred To Contact Referral ID Status Reason Start Date Expiration Date Visits Re quested Visits Authorized [id number] 1 1 Encounter Details Date Type Department Care Team (Late st Contact Info) Description 03/17/2022 2:29 AM CDT - 03/21/2022 11:15 AM [facility] Hospital Encounter [facility] 7S ACUTE [address] [place] [id number] Ananda Shepherd MD [address] [place] [address] [place] [address] Hector Funk DO [address] [place] [address] [place] [address] [place] [id number] Internal Medicine Discharge Disposition: Home or Self [...] Sign Reading Time Taken Comments Blood Pressure 144/91 03/21/2022 8:13 AM SPRAY DRIER OPERATOR Pulse 70 03/21/2022 8:13 AM SPRAY DRIER OPERATOR Temperature 36.9 ??C (98.4 ??F) 03/21/2022 8:13 AM CS T Respiratory Rate 18 03/21/2022 8:13 AM SPRAY DRIER OPERATOR Oxygen Saturation 98% 03/21/2022 8:13 AM SPRAY DRIER OPERATOR Inhaled Oxygen Concentration - - Weight 117.9 kg (260 lb) 03/17/2022 8:22 AM CDT Height 177.8 cm (5' 10 ) 03/17/2022 8:22 AM CDT Body Mass Index 37.31 03/17/2022 8:22 AM CDT documented in this encounter Functional Status [...] No 03/18/2022 documented as of this encounter Discharge Summaries * Modesto Traylor MD - 03/21/2022 10:22 AM CST Physician Discharge Summary Patient ID: Chuck Barlow [id number] 26 year old 1995 Admit date: 03/17/2022 Discharge date: 03/21/2022 Admitting Physician: Hector Funk DO Discharge Physician: Modesto Traylor MD Discharged Condition: stable Problem List History of gastroschisis POA: Yes Controlled type 2 diabetes mellitus without complication, without long-term current use of insulin (CMS/HCC) POA: Yes Essential hypertension, benign POA: Yes Partial small bowel obstruction (CMS/HCC) POA: Yes Leukocytosis POA: Yes Hospital Course: Patient is a 26 yo M w/ hx of HTN, DM2, gastroschisis who presents with abdominal pain. Found to have partial SBO managed medically with NG, fluids and pain control. Surgery consulted but no surgicalintervention was necessary as SBO resolved with conservative management only. Patient having flatusthroughout, had large BM on day of discharge with good improvement of pain overall. Consults: General surgery Significant Diagnostic Studies: See hospital course Treatments: See hospital course Discharge Exam: General appearance: alert, cooperative, no distress Heart: regular rhythm, normal S1 and S2, without murmurs, rubs or gallops Lungs: breath sounds normal and symmetric; no rales or wheezes Abdomen: soft without mass, non-tender, with normal bowel sounds Extremities: no clubbing, cyanosis or edema Disposition: Home Patient Instructions: Current Discharge Medication List START taking these medications Instructions Authorizing Provider oxyCODONE (immediate release) 5 MG tablet Commonly known as: Roxicodone Quantity Dispensed: 7 tablet Take 1 (one) tablet by mouth every 6 hours as needed for Pain Modesto Traylor MD polyethylene glycol 3350 17 GM/SCOOP powder Commonly known as: Miralax Quantity Dispensed: 238 g Take 17 (seventeen) g by mouth once daily Elvia Hawkins, CASTING MOLDER-LIFTS AND CRANES INSPECTOR CONTINUE taking these medications which have NOT CHANGED Instructions Authorizing Provider Alcohol Prep 70 % Quantity Dispensed: 100 Each USE 1 SWAB TO CLEAN SKIN TWICE DAILY BEFORE TESTING Ananda Gilbert, DO amLODIPine 10 MG tablet Commonly known as: Norvasc Take 10 mg by mouth once daily lisinopril 40 MG tablet Commonly known as: Prinivil; Zestril Take 40 mg by mouth once daily montelukast 10 MG tablet Commonly known as: Singulair Take 10 mg by mouth at bedtime ONETOUCH DELICA PLUS 33G EXTRA FINE LANCET Quantity Dispensed: 100 Each USE 1 LANCET TO PRICK FINGER TWICE DAILY BEFORE TESTING Ananda Gilbert, DO OneTouch Verio Reflect w/Device Kit Quantity Dispensed: 1 kit Use 1 Units 2 times daily USE MACHINE TO CHECK BLOOD SUGAR TWICE DAILY Ananda Gilbert, DO OneTouch Verio test strip Generic drug: blood glucose Quantity Dispensed: 100 strip USE 1 STRIP TO CHECK BLOOD SUGAR TWICE DAILY Reasons: FOR DIABETES EDUCATION Ananda Gilbert, DO pravastatin 40 MG tablet Commonly known as: Pravachol Take 1 tablet by mouth every evening SALINE NASAL SPRAY NA SITagliptin 25 MG tablet Commonly known as: Januvia Take 25 mg by mouth once daily STOP taking these medications cetirizine 5 MG chew tablet Commonly known as: ZyrTEC cyclobenzaprine 10 MG tablet Commonly known as: Flexeril HYDROcodone-acetaminophen 7.5-325 MG tablet Commonly known as: [place] lidocaine 5 % patch Commonly known as: Lidoderm loratadine 10 MG tablet Commonly known as: Claritin omeprazole 40 MG capsule Commonly known as: PriLOSEC traMADol HCl 100 MG Tabs Signed: Modesto Traylor MD 03/21/2022 1:06 PM Y DRIER OPERATOR documented in this encounter Discharge Instructions * Discharge Instructions* Karrie Melo RN - 03/21/2022 10:21 AM SPRAY DRIER OPERATOR DISCHARGE INSTRUCTIONS: Mr Barlow You were admitted for small bowel obstruction. Luckily it has resolved without surgery. If you havethe symptoms that brought you in again - abdominal pain, bloating, constipation, especially if you stop having gas- please come to the emergency room. Please continue to take Miralax - or the generic equivalent once per day but you can stop if you are having very watery stools or having diarrhea. If you need to call [facility] for any reason, you may reach us at [phone] and dial [phone] for the hydro electric station operator. CONCERNING SYMPTOMS: When to call your healthcare provider: Call your healthcare provider immediately if you have any of the following: - Dizziness - Weakness in arms/legs - Fever of 101??F or higher - Shaking chills - Intractable nausea and vomiting - Severe headache - Confusion/altered mental status - Seizures (convulsions) If you are unable to reach your primary provider, please go to the nearest emergency room or call EMS ([phone]). FOLLOW-UP APPOINTMENTS: There is a full list of your follow up appointments at the beginning of this document. It is essential that you keep all of your follow-up appointments and go to your doctors appointments as scheduled. If a follow-up with your primary care provider has not been scheduled, you need to schedule an appointment tofollow-up on your hospitalization within 1-2 weeks. If there is a conflict,please call the clinic ahead of time and reschedule the appointment. Thanks! Modesto Traylor MD Internal Medicine Department [address] [address] Y DRIER OPERATOR documented in this encounter Medications at Time of Discharge Medication Sig Dispensed Refills Start Date End Date amLODIPine (NORVASC) 10 MG tablet Take 1 (one) tablet by mouth once daily 09/09/2021 montelukast (SINGULAIR) 10 MG tablet Take 1 (one) tablet by mouth at bedtime 09/10/2021 pravastatin (PRAVACHOL) 40 MG tablet Take 1 (one) tablet by mouth every evening 04/29/2021 SALINE NASAL SPRAY NA SITagliptin (JANUVIA) 25 MG tablet Take 1 (one) tablet by mouth once daily 08/21/2021 Alcohol Swabs (ALCOHOL PREP) 70 % USE 1 SWAB TO CLEAN SKIN TWICE DAILY BEFORE TESTING 100 Each 09/16/2021 06/29/2022 blood glucose (ONETOUCH VERIO) test stripIndications:FOR DIABETES EDUCATION USE 1 STRIP TO CHECK BLOOD SUGAR TWICE DAILY Reasons: FOR DIABETES EDUCATION 100 strip 09/16/2021 06/29/2022 Blood Glucose Monitoring Suppl (ONETOUCH VERIO REFLECT) w/Device KIT Use 1 Units 2 times daily USE MACHINE TO CHECK BLOOD SUGAR TWICE DAILY 1 kit 09/16/2021 06/29/2022 Lancets (ONETOUCH DELICA PLUS 33G EXTRA FINE LANCET) USE 1 LANCET TO PRICK FINGER TWICE DAILY BEFORE TESTING 100 Each 09/16/2021 10/08/2022 lisinopril (PRINIVIL; ZESTRIL) 40 MG tablet Take 1 (one) tablet by mouth once daily 08/21/2021 07/28/2022 oxyCODONE, immediate release, (Roxicodone) 5 MG tablet Take 1 (one) tablet by mouth every 6 hours as needed for Pain 7 tablet 03/21/2022 06/29/2022 polyethylene glycol 3350 (MIRALAX) 17 GM/SCOOP powder Take 17 (seventeen) g by mouth once daily 238 g 09/22/2021 06/29/2022 documented as of this encounter Progress Notes * Milagros Foreman RN - 03/21/2022 11:15 AM CST Discharge To Home Discharge Date: 03/21/2022 Transportation at time of Discharge: private car Family Member who will transport: patient arranged Comments: No further case management needs at this time. Milagros Foreman RN Case Manager [phone] Y DRIER OPERATOR * Karrie Melo RN - 03/21/2022 10:41 AM CST Problem: Pain/Discomfort Goal: Patient exhibits reduced pain/discomfort as evidenced by pain scores 03/21/2022 1041 by Karrie Melo RN Outcome: Adequate for Discharge 03/21/2022 0845 by Karrie Melo RN Outcome: Progressing Goal: Patient uses pharmacological and non-pharmacological pain management strategies. 03/21/2022 1041 by Karrie Melo RN Outcome: Adequate for Discharge 03/21/2022 0845 by Karrie Melo RN Outcome: Progressing Goal: Patient verbalizes acceptable level of pain relief and ability to engage in desired activity. 03/21/2022 1041 by Karrie Melo RN Outcome: Adequate for Discharge 03/21/2022 0845 by Karrie Melo RN Outcome: Progressing Problem: Fall Risk Goal: Fall risk and fall related injury risk are minimized (interventions related to the fall risk can be found in the flowsheet documentation) 03/21/2022 1041 by Karrie Melo RN Outcome: Adequate for Discharge 03/21/2022 0845 by Karrie Melo RN Outcome: Progressing Y DRIER OPERATOR * Karrie Melo RN - 03/21/2022 8:46 AM CST Problem: Pain/Discomfort Goal: Patient exhibits reduced pain/discomfort as evidenced by pain scores Outcome: Progressing Goal: Patient uses pharmacological and non-pharmacological pain management strategies. Outcome: Progressing Goal: Patient verbalizes acceptable level of pain relief and ability to engage in desired activity. Outcome: Progressing Problem: Fall Risk Goal: Fall risk and fall related injury risk are minimized (interventions related to the fall risk can be found in the flowsheet documentation) Outcome: Progressing Y DRIER OPERATOR * Lorna Parmar RN - 03/20/2022 7:30 PM CDT Problem: Pain/Discomfort Goal: Patient exhibits reduced pain/discomfort as evidenced by pain scores Outcome: Progressing Goal: Patient uses pharmacological and non-pharmacological pain management strategies. Outcome: Progressing Goal: Patient verbalizes acceptable level of pain relief and ability to engage in desired activity. Outcome: Progressing Problem: Fall Risk Goal: Fall risk and fall related injury risk are minimized (interventions related to the fall risk can be found in the flowsheet documentation) Outcome: Progressing * Modesto Traylor MD - 03/20/2022 2:42 PM CDT Internal Medicine Progress Note Med 4 Admission Date: 03/17/2022 Hospital Day: 3 Interval History: Pain continues to improve, more flatus, tolerating solids, no BM yet OBJECTIVE Exam: Height: 177.8 cm (5' 10 ) Body mass index is 37.31 kg/m??. Unable to calculate weight change. Weight: 117.9 kg (260 lb) Temp (24hrs), Av ??F (36.7 ??C), Min:97.3 ??F (36.3 ??C), Max:98.4 ??F (36.9 ??C) Intake/Output Summary (Last 24 hours) at 03/20/2022 1442 Last data filed at 03/20/2022 1311 Gross per 24 hour Intake 4011.13 ml Output 2800 ml Net 1211.13 ml Vitals: 03/19/22 2307 03/20/22 0413 03/20/22 0754 03/20/22 1223 BP: 135/94 130/85 135/85 134/88 Pulse: 72 72 62 71 Resp: 18 16 18 18 Temp: 98.4 ??F (36.9 ??C) 97.6 ??F (36.4 ??C) 97.3 ??F (36.3 ??C) 98.1 ??F (36.7 ??C) SpO2: 97% 98% 99% 99% Weight: Height: Exam Gen: NAD, conversational, pleasant, cooperative Eyes: EOMI; PERRL; anicteric, non-injected sclerae Mouth: moist oral mucous membrane; no lesions or sores appreciated; no tonsillar exudates CV: normal S1, S2; RRR; no MRGs appreciated; 2+ radial, DP pulses bilaterally; no LE edema bilaterally Pulm: CTAB; no wheezes or crackles GI: abd mod distended, mod ttp worst at epigastrium/RUQ; +BS; no HSM, no guarding or rebound Psych: AOx3; calm, congruent affect Skin: no rashes appreciated Labs: CBC: Recent Labs Lab 03/20/22426 WBC 7.1 HGB 12.1 HCT 37.8 MCV 81.8 PLTCOUNT 280 BMP: Recent Labs Lab 03/20/22427 NA 144 POTASSIUM 4.2 CL 109* CO2 19* BUN 10 CREATININE 0.97 CALCIUM 9.2 CMP: Recent Labs Lab 03/20/22 0428 03/18/22 0419 03/17/22 0341 AST -- -- 17 ALT -- -- 40 TBILI -- -- 1.0 ALKPHOS -- -- 113 ALB 3.5 1 4.1 PROT -- -- 8.2 1 = values in this interval not displayed. Imaging: Reviewed in chart Problem List Partial small bowel obstruction (CMS/HCC) POA: Unknown Assessment/Plan: Partial SBO - improved - clamp trial yesterday went well - NG removed - Cont reg diet - Start miralax and docusate - ACS following DM2 - well controlled, can dc bs checks if ok once starts diet HTN - hold home meds for now F/E/N- Replete electrolytes as needed, npo diet Code Status- Full Code DVT ppx- lovenox Dispo- Floor Modseto Traylor MD * Miranda Mcclendon RN - 03/20/2022 9:32 AM CDT Problem: Pain/Discomfort Goal: Patient exhibits reduced pain/discomfort as evidenced by pain scores Outcome: Progressing Goal: Patient uses pharmacological and non-pharmacological pain management strategies. Outcome: Progressing Goal: Patient verbalizes acceptable level of pain relief and ability to engage in desired activity. Outcome: Progressing * Lorna Parmar RN - 03/19/2022 8:37 PM CDT Problem: Pain/Discomfort Goal: Patient exhibits reduced pain/discomfort as evidenced by pain scores Outcome: Progressing Goal: Patient uses pharmacological and non-pharmacological pain management strategies. Outcome: Progressing Goal: Patient verbalizes acceptable level of pain relief and ability to engage in desired activity. Outcome: Progressing Problem: Fall Risk Goal: Fall risk and fall related injury risk are minimized (interventions related to the fall risk can be found in the flowsheet documentation) Outcome: Progressing * Modesto Traylor MD - 03/19/2022 1:09 PM CDT Internal Medicine Progress Note Med 4 Admission Date: 03/17/2022 Hospital Day: 2 Interval History: Pain improved, more flatus overnight. OBJECTIVE Exam: Height: 177.8 cm (5' 10 ) Body mass index is 37.31 kg/m??. Unable to calculate weight change. Weight: 117.9 kg (260 lb) Temp (24hrs), Av.2 ??F (36.8 ??C), Min:97.7 ??F (36.5 ??C), Max:99 ??F (37.2 ??C) Intake/Output Summary (Last 24 hours) at 03/19/2022 1309 Last data filed at 03/19/2022 1147 Gross per 24 hour Intake 1693.1 ml Output 3525 ml Net -1831.9 ml Vitals: 03/18/22 2337 03/19/22 0441 03/19/22 0739 03/19/22 1146 BP: 142/97 118/76 139/95 132/81 Pulse: 84 64 70 70 Resp: 18 18 16 16 Temp: 98.7 ??F (37.1 ??C) 97.9 ??F (36.6 ??C) 97.9 ??F (36.6 ??C) 98.1 ??F (36.7 ??C) SpO2: 96% 97% 98% 100% Weight: Height: Exam Gen: NAD, conversational, pleasant, cooperative Eyes: EOMI; PERRL; anicteric, non-injected sclerae Mouth: moist oral mucous membrane; no lesions or sores appreciated; no tonsillar exudates CV: normal S1, S2; RRR; no MRGs appreciated; 2+ radial, DP pulses bilaterally; no LE edema bilaterally Pulm: CTAB; no wheezes or crackles GI: abd mod distended, mod ttp worst at epigastrium/RUQ; +BS; no HSM, no guarding or rebound Psych: AOx3; calm, congruent affect Skin: no rashes appreciated Labs: CBC: Recent Labs Lab 03/19/22 0321 WBC 7.3 HGB 11.4* HCT 36.1 MCV 82.4 PLTCOUNT 306 BMP: Recent Labs Lab 03/19/22 0321 NA 139 POTASSIUM 3.6 CL 105 CO2 26 BUN 9 CREATININE 0.82 CALCIUM 9.2 CMP: Recent Labs Lab 03/19/22 0321 03/18/22 0419 03/17/22 0341 AST -- -- 17 ALT -- -- 40 TBILI -- -- 1.0 ALKPHOS -- -- 113 ALB 3.4 1 4.1 PROT -- -- 8.2 1 = values in this interval not displayed. Imaging: Reviewed in chart Problem List Partial small bowel obstruction (CMS/HCC) POA: Unknown Assessment/Plan: Partial SBO - improved - clamp trial yesterday went well - NG removed - Tolerating CLD yesterday into this am - Start FLD today - ACS following DM2 - well controlled, can dc bs checks if ok once starts diet HTN - hold home meds for now F/E/N- Replete electrolytes as needed, npo diet Code Status- Full Code DVT ppx- lovenox Dispo- Floor Modesto Traylor MD * Miranda Mcclendon RN - 03/19/2022 8:05 AM CDT Problem: Pain/Discomfort Goal: Patient exhibits reduced pain/discomfort as evidenced by pain scores Outcome: Progressing Goal: Patient uses pharmacological and non-pharmacological pain management strategies. Outcome: Progressing Goal: Patient verbalizes acceptable level of pain relief and ability to engage in desired activity. Outcome: Progressing * Tena Napier DO - 03/19/2022 6:02 AM CDT Images from the original note were not included. ACUTE CARE SURGERY PROGRESS NOTE ADMIT: 03/17/2022 2:29 AM LOS: 2 days 03/19/2022 HISTORY: Chuck Barlow is a 26 year old male with PMHx s/f gastroschisis, SBO as an infant, and SBO w/small bowel resection in 09/17/2021, HTN, HLD, and T2DM??who presented to the ED initially for 1-day of worsening periumbilical pain and nausea.??He first noticed the abd pain upon waking up on 03/16, and the pain worsened and became sharp throughout the day. It radiates to his L and R abdomen. He says the pain feels similar to when I had my last obstruction. Pt has also been nauseated, and he had1 episode of bilious, non-bloody emesis upon arrival to [facility]. He reports passing gas while waiting for a room in the ED, and he last passed a normal BM on 03/16. Pt's last full meal was around noon on 03/16. Laboratory workup in the ED revealed a WBC of 24.2 and initial lactate of 3.0 w/ repeat lactate 1.6. CT abdomen revealed mild small bowel dilation with no definitive transition point suggesting partial small bowel obstruction. NG tube was successfully placed in the ED, and pt's pain and nausea have improved since onset. His NG was removed and he is tolerating a clear liquid diet. Procedures: ACS: 03/17/22 - NG tube placed in ED 03/18/22 - NG removed SUBJECTIVE: Pt continued having abdominal pain overnight ranging from 1-7 out of 10 overnight, but his pain hasimproved since being admitted. Pt was able to tolerate 960 mL of PO intake on clear liquid diet after his NG tube was removed. He is passing gas but has not passed a BM in 3 days. No nausea or vomiting. Pt has not been ambulating. WBC decreased to 7.3 today. He has been afebrile w/ regular pulse, respiratory rate, and oxygen saturation. Holding home blood pressure meds now. Antibiotics: None OBJECTIVE: Blood pressure 118/76, pulse 64, temperature 97.9 ??F (36.6 ??C), resp. rate 18, height 5' 10 (1.778 m), weight 260 lb (117.9 kg), SpO2 97 %. Temp: [97.7 ??F (36.5 ??C)-99 ??F (37.2 ??C)] 97.9 ??F (36.6 ??C) Pulse: [64-84] 64 Resp: [18] 18 BP: (118-143)/(76-97) 118/76 DIET: DIET CLEAR LIQUID Ins/Outs: 03/18 701 - 03/19 700 In: 3156.4 [P.O.:960; I.V.:2136.4] Out: 3250 [Urine:3150; Drains:100] Physical Exam Gen: No acute distress; appears comfortable, resting in bed ENT: Head atraumatic; NG tube has been removed Resp: Non-labored breathing on room air CV: Regular rate Abd: Soft, no distension; no peritoneal signs MSK: No edema Neuro: No focal deficits, able to move all extremities Psych: Appropriate mood and affect RECENT LABS: Recent Labs Component Name 03/19/2232003/18/2241803/17/22340 WBC 7.3 9.7 24.2* HGB 11.4* 11.8* 13.7 HCT 36.1 36.8 43.2 MCV 82.4 82.3 81.8 Recent Labs Component Name 03/19/2232003/18/2241803/17/2234009/22/21 025 NA 139 141 138 141 CL 105 107 105 105 CO2 26 22 20* 23 BUN 9 13 14 8 CREATININE 0.82 0.90 0.83 0.80 CALCIUM 9.2 8.8 10.1 9.6 MAGNESIUM 2.1 2.1 - 1.9 PHOS 3.9 3.8 - 4.5 Recent Labs Component Name 03/19/2232003/18/2241803/17/2234009/15/21 1848 PROT - - 8.2 7.7 ALB 3.4 3.3* 4.1 3.7 TBILI - - 1.0 1.2 AST - - 17 22 ALT - - 40 47 ALKPHOS - - 113 80 No results for input(s): PROTIME, INR, PTT in the last 19288 hours. CULTURES: Culture Date/Time Value Ref Range Status 03/17/2022 05:27 AM No growth 24 hours Preliminary 03/17/2022 05:22 AM No growth 24 hours Preliminary RECENT IMAGING: XR ABDOMEN KUB Result Date: 03/17/2022 IMPRESSION: Enteric tube terminates in the stomach. I, Ginette Wellington MD have personally reviewed andinterpreted this examination/study. > Interpreting Provider: Ginette Wellington MD on 03/17/2022 8:[address] ABDOMEN PELVIS W CONTRAST Result Date: 03/17/2022 Impression: 1.Mild small bowel dilation, predominantly in the right abdomen, gradually tapering down in the distal ileum. There is no definitive transition point, likely representing partial bowel obstruction versus ileus. No pneumatosis. 2.There is mild mesenteric stranding in the lower abdomen around the anastomosis, which may represent postoperative changes or reactive changes. These findings were discussed in detail with the patient's care provider, Ms. Plascencia (FERNANDO) by Dr. Fitch via telephone at 5:00 PM on 03/17/2022 with readback comprehension and verification. > Dictated by Gwen Fitch MD(consultant luxury and auto. vice president [employer] (ex )). I, Andrea Guillory have personally reviewed and interpreted this examination/ study. > Interpreting Provider: Andrea Guillory on 03/17/2022 9:36 AM PATHOLOGY: Specimens (From admission, onward) None ASSESSMENT: Chuck Barlow is a 26 year old male with PMH s/f gastroschisis, SBO as an infant, and SBO with small bowel resection on 09/17/21. He presented to [facility] for partial SBO evident on CT of the abdomen. NG tube was placed in the ED and placed to low intermittent wall suction. CBC at admission revealed a leukocytosis of 24.2. No evidence of an acute abdomen. NG tube was removed on 03/18 and pt is tolerating a clear liquid diet. PLAN: Neuro: Multimodal Pain regimen - IV Tylenol 1,000 mg q8h PRN - IV Dilaudid 0.5 mg q4h PRN - Phenol 1.4% liquid spray for sore throat related to NG tube insertion Cardiac: - Normal heart rate - Holding home blood pressure medications - Continue to monitor vital signs Pulm: - Normal oxygen saturation on room air - Encourage I/S FEN/GI: - Diet: advance as tolerated - IVF: 0.9% NaCl infusion at 100 mL/hr - Ulcer ppx: N/A - Bowel regimen/bowel movement: None currently. Has not passed a BM since 03/16. - Replete lytes Mg >2, Phos >3, K >4 - IV Compazine 5 mg q6h PRN Renal: UOP is adequate Strict I&Os Heme: - WBC decreased from 24.2 on admission to 7.3 (03/19) - Hgb 11.4 - Continue daily CBCs - Anticoagulation with lovenox 40 mg subQ QD Transfuse Hgb <7, platelets <50 ID: -No acute concerns Endo: - Hx of Type 2 DM - Insulin lispro 0-6 units SubQ TID w/ meals MSK: - AAT - PT/OT - OOB x3 Ppx: Lovenox 40 mg QD, encouraged pt to ambulate, IV Compazine 5 mg q6h PRN LDAs: PIV x2 Dispo: Inpatient floor No acute surgical indication present at this time. Acute Care Surgery will be signing off. Please page ACS for any new questions or concerns. Thank you for allowing us to participate in the care of this patient. Debi Martinez 3rd-year Medical Student Resident Addendum I have verified the documentation of the medical student including all history, exam, and medical decision-making details. I have personally performed a physical exam and have personally reviewed thedata to support my medical decision-making as outlined in the medical student's note, and I arrive i ndependently at the same conclusion. Note has been edited by me where appropriate. Tena Napier DO PGY1 Surgery Resident Associated attestation - Devang Noel MD - 03/20/2022 11:20 AM CDT I have seen and examined the patient with the resident and I agree with the findings and plan of care as documented by the resident. Date of Service: 03/19 Devang Noel MD * Lorna Parmar RN - 03/18/2022 7:37 PM CDT Problem: Pain/Discomfort Goal: Patient exhibits reduced pain/discomfort as evidenced by pain scores Outcome: Progressing Goal: Patient uses pharmacological and non-pharmacological pain management strategies. Outcome: Progressing Goal: Patient verbalizes acceptable level of pain relief and ability to engage in desired activity. Outcome: Progressing Problem: Fall Risk Goal: Fall risk and fall related injury risk are minimized (interventions related to the fall risk can be found in the flowsheet documentation) Outcome: Progressing * Milagros Foreman RN - 03/18/2022 3:29 PM CDT A Chart Review has been conducted by Case Management. Based on current condition, will patient be able to return to prior living situation? yes Anticipated Discharge Date: 03/19/22 Anticipated discharge needs: will be determined closer to discharge date Barriers to discharge / additional discharge needs: n/a Additional comments: n/a Per nursing assessments: Transportation at discharge: Family Transportation (who): patient to arrange Metal Crafts Teacher/Support: Lizeth Barlow Metal Crafts Teacher person: n/a Home/Functional Status: Functional and Cognitive Status Is person deaf or have serious hearing difficulty?: No Is person blind or have serious difficulty seeing?: No Does person have serious difficulty walking/climbing stairs?: No Does person have difficulty dressing/bathing?: No Does person have difficulty doing errands alone?: No Does person have difficulty concentrating/remembering/making decisions?: No ?. Will continue to follow. For any questions or needs please contact: Transportation Agent Name/Phone number: Milagros Foreman RN Case Manager [phone] * Patito Trevizo - 03/18/2022 1:44 PM CDT Casting Machine Operator [employer] had initial visit with this patient and his mother. I introduced the role of pastoral careand inquired about needs. No immediate needs at this time, but patient and mother aware of the 06/12presence of rehabilitation therapist support as needed. Pastoral Care Ascom: [phone] Patito Trevizo 03/18/2022 1:47 PM * Diane Hyatt MD - 03/18/2022 12:04 PM CDT Images from the original note were not included. ACUTE CARE SURGERY PROGRESS NOTE ADMIT: 03/17/2022 2:29 AM LOS: 1 day 03/18/2022 HISTORY: Chuck Barlow is a 26 year old male with PMHx s/f gastroschisis, SBO as an , and SBO w/small bowel resection in 09/17/2021, HTN, HLD, and T2DM who presented to the ED initially for 1-day of worsening periumbilical pain and nausea. He first noticed the abd pain upon waking up yesterday (03/16), and the pain worsened and became sharp throughout the day. It radiates to his L and R abdomen.He says the pain feels similar to when I had my last obstruction. Pt has also been nauseated, andhe had 1 episode of bilious, non-bloody emesis upon arrival to [facility] ED. He reports passing gas whilewaiting for a room in the ED, and he last passed a normal BM yesterday. Pt's last full meal was around noon yesterday, but he had a piece of chicken last night. Laboratory workup in the ED revealed aWBC of 24.2 and initial lactate of 3.0 w/ repeat lactate 1.6. CT abdomen revealed mild small bowel dilation with no definitive transition point suggesting partial small bowel obstruction. NG tube wassuccessfully placed in the ED, and pt's pain and nausea have improved since onset. Procedures: ACS: 03/17/22 - NG tube placed in ED SUBJECTIVE: NAEON. Feels better this AM, reports mild abdominal soreness but reports it has improved since yesterday. Passed flatus several times overnight, no BM. NG put out 660 since placement yesterday. Antibiotics: None OBJECTIVE: Blood pressure 143/88, pulse 83, temperature 98.5 ??F (36.9 ??C), temperature source Oral, resp. rate 18, height 5' 10 (1.778 m), weight 260 lb (117.9 kg), SpO2 97 %. Temp: [98.4 ??F (36.9 ??C)-99.1 ??F (37.3 ??C)] 98.5 ??F (36.9 ??C) Pulse: [83-92] 83 Resp: [16-18] 18 BP: (122-145)/(84-97) 143/88 DIET: DIET NPO Except: ICE CHIPS Ins/Outs: 03/17 701 - 03/18 07 In: 60 Out: 1560 [Urine:900; Drains:660] Physical Exam Gen: Alert and oriented, NAD ENT: Head atraumatic, NG tube in place Resp: unlabored breathing on RA CV: RRR, pulse 2+ Abd: Soft, NT/ND, no rebound/guarding, non-peritoneal MSK: WWP, no c/c/e Neuro: Moving all extremities, no focal deficits Psych: Appropriate mood and affect RECENT LABS: Recent Labs Component Name 03/18/2241803/17/2234009/22/21 0252 WBC 9.7 24.2* 9.5 HGB 11.8* 13.7 12.0 HCT 36.8 43.2 36.4 MCV 82.3 81.8 84.8 Recent Labs Component Name 03/18/2241803/17/2234009/22/21 0252 09/21/21 0235 NA 141 138 141 141 CL 107 105 105 103 CO2 22 20* 23 27 BUN 13 14 8 5* CREATININE 0.90 0.83 0.80 0.58* CALCIUM 8.8 10.1 9.6 9.3 MAGNESIUM 2.1 - 1.9 1.8 PHOS 3.8 - 4.5 4.1 Recent Labs Component Name 03/18/2241803/17/2234009/15/21 1848 PROT - 8.2 7.7 ALB 3.3* 4.1 3.7 TBILI - 1.0 1.2 AST - 17 22 ALT - 40 47 ALKPHOS - 113 80 No results for input(s): PROTIME, INR, PTT in the last 15678 hours. CULTURES: Culture Date/Time Value Ref Range Status 03/17/2022 05:27 AM No growth 24 hours Preliminary 03/17/2022 05:22 AM No growth 24 hours Preliminary RECENT IMAGING: XR ABDOMEN KUB Result Date: 03/17/2022 IMPRESSION: Enteric tube terminates in the stomach. IGinette MD have personally reviewed andinterpreted this examination/study. > Interpreting Provider: Ginette Wellington MD on 03/17/2022 8:[address] ABDOMEN PELVIS W CONTRAST Result Date: 03/17/2022 Impression: 1.Mild small bowel dilation, predominantly in the right abdomen, gradually tapering down in the distal ileum. There is no definitive transition point, likely representing partial bowel obstruction versus ileus. No pneumatosis. 2.There is mild mesenteric stranding in the lower abdomen around the anastomosis, which may represent postoperative changes or reactive changes. These findings were discussed in detail with the patient's care provider, Ms. Plascencia ([place]) by Dr. Fitch via telephone at 5:00 PM on 03/17/2022 with readback comprehension and verification. > Dictated by Gwen Fitch MD(consultant luxury and auto. vice president [employer] (ex )). IAndrea have personally reviewed and interpreted this examination/ study. > Interpreting Provider: Andrea Guillory on 03/17/2022 9:36 AM PATHOLOGY: Specimens (From admission, onward) None ASSESSMENT: Chuck Barlow is a 26 year old male with PMH s/f gastroschisis, SBO as an , and SBO with small bowel resection on 09/17/21. He presented to [facility] for partial SBO evident on CT of the abdomen. NGT was placed in the ED and placed to LIWS. CBC at admission revealed a leukocytosis of 24.2. No evidence of an acute abdomen. 660 of bilious content out of NG tube since placement yesterday. PLAN: Neuro: Multimodal Pain regimen - Acetaminophen IV 1000mg x8PRN - Dilaudid 0.5 mg q4h prn Cardiac: - MAPs > 65 - Continue to monitor vital signs Pulm: - Encourage I/S FEN/GI: Diet: NPO IVF: NS @ 100ml/hr NG tube to LIWS, placed to gravity this morning -plan to DC later today and start CLD Ulcer ppx: N/A Bowel regimen/bowel movement: None Replete lytes Mg >2, Phos >3, K >4 Renal: UOP Strict I&Os Heme: - Hgb 11.8 (from 13.7) - Continue daily CBCs - Anticoagulation with heparin Transfuse Hgb <7, platelets <50 ID: -No acute concerns Endo: - Humalog 100u/ml, 0-6 units MSK: - AAT - PT/OT - OOB x3 Ppx: Heparin, SCDs LDAs: PIV, NG tube Dispo: inpatient floor Patient to be seen with: Dr. Bert Napier, PGY-1 03/18/2022 12:04 PM Chief Resident Attestation I have independently examined the patient and agree with the above note, except where addended. Diane Hyatt MD 03/18/2022 12:14 PM Associated attestation - Devang Noel MD - 03/20/2022 11:20 AM CDT I have seen and examined the patient with the resident and I agree with the findings and plan of care as documented by the resident. Date of Service: 03/18 Devang Noel MD * Modesto Traylor MD - 03/18/2022 11:25 AM CDT Internal Medicine Progress Note Med 4 Admission Date: 03/17/2022 Hospital Day: 1 Interval History: Patient feeling better, less pain, having flatus OBJECTIVE Exam: Height: 177.8 cm (5' 10 ) Body mass index is 37.31 kg/m??. Unable to calculate weight change. Weight: 117.9 kg (260 lb) Temp (24hrs), Av.7 ??F (37.1 ??C), Min:98.4 ??F (36.9 ??C), Max:99.1 ??F (37.3 ??C) Intake/Output Summary (Last 24 hours) at 03/18/2022 1127 Last data filed at 03/18/2022 0813 Gross per 24 hour Intake 1613.26 ml Output 1960 ml Net -346.74 ml Vitals: 03/17/22 2217 03/17/22 2218 03/18/22 0409 03/18/22 0750 BP: 129/91 122/89 143/88 Pulse: 91 92 83 Resp: 16 18 18 18 Temp: 99.1 ??F (37.3 ??C) 98.4 ??F (36.9 ??C) 98.5 ??F (36.9 ??C) SpO2: 96% 98% 97% Weight: Height: Exam Gen: NAD, conversational, pleasant, cooperative Eyes: EOMI; PERRL; anicteric, non-injected sclerae Mouth: moist oral mucous membrane; no lesions or sores appreciated; no tonsillar exudates CV: normal S1, S2; RRR; no MRGs appreciated; 2+ radial, DP pulses bilaterally; no LE edema bilaterally Pulm: CTAB; no wheezes or crackles GI: abd mod distended, mod ttp worst at epigastrium/RUQ; +BS; no HSM, no guarding or rebound Psych: AOx3; calm, congruent affect Skin: no rashes appreciated Labs: CBC: Recent Labs Lab 03/18/22 0419 WBC 9.7 HGB 11.8* HCT 36.8 MCV 82.3 PLTCOUNT 300 BMP: Recent Labs Lab 03/18/22 0419 NA 141 POTASSIUM 4.0 CL 107 CO2 22 BUN 13 CREATININE 0.90 CALCIUM 8.8 CMP: Recent Labs Lab 03/18/22 0419 03/17/22 0341 AST -- 17 ALT -- 40 TBILI -- 1.0 ALKPHOS -- 113 ALB 3.3* 4.1 PROT -- 8.2 Imaging: Reviewed in chart Problem List Partial small bowel obstruction (CMS/HCC) POA: Unknown Assessment/Plan: Partial SBO - improved - clamp trial today - CLD later if doing well - ACS following - Cont IVF - Cont anitemetics - Cont pain control DM2 - well controlled, can dc bs checks if ok once starts diet HTN - hold home meds for now F/E/N- Replete electrolytes as needed, npo diet Code Status- Full Code DVT ppx- lovenox Dispo- Floor Modesto Traylor MD * Mira Hoffman RN - 03/18/2022 8:10 AM CDT Problem: Pain/Discomfort Goal: Patient exhibits reduced pain/discomfort as evidenced by pain scores Outcome: Progressing Goal: Patient uses pharmacological and non-pharmacological pain management strategies. Outcome: Progressing Goal: Patient verbalizes acceptable level of pain relief and ability to engage in desired activity. Outcome: Progressing Problem: Fall Risk Goal: Fall risk and fall related injury risk are minimized (interventions related to the fall risk can be found in the flowsheet documentation) Outcome: Progressing * Lorna Parmar RN - 03/17/2022 11:59 PM CDT Problem: Pain/Discomfort Goal: Patient exhibits reduced pain/discomfort as evidenced by pain scores Outcome: Progressing Goal: Patient uses pharmacological and non-pharmacological pain management strategies. Outcome: Progressing Goal: Patient verbalizes acceptable level of pain relief and ability to engage in desired activity. Outcome: Progressing documented in this encounter H&P Notes * Jay King PA-C - 03/17/2022 12:30 PM CDT Images from the original note were not included. GENERAL INTERNAL MEDICINE HISTORY AND PHYSICAL Chief Complaint: Abdominal pain History of Present Illness: Chuck Barlow is a 26 year old male with history s/f gastroschisis, SBO as an , and SBO w/ exploratory laparotomy and small bowel resection, on 09/17/2021, HTN, HLD, T2DM, who presented to the ED for 1 day of worsening periumbilical pain and nausea. He first noticed the abdominal pain, when waking up on 03/16 and the pain worsened and became sharp throughout the day. It radiates to his L & R abdomen and he states that it is similar in character to his last SBO. Pain worsened to extreme and unbearable so he decided to come into ED. He was nauseated and had 1 episode of bilious, non-bloody emesis upon ED arrival this morning, and he last had a normal BM yesterday. Of note, patient passed gas while sititng in waiting room last night. NG tube was placed in ED, andhis pain and nausea improved. Currently endorses mild periumblical pain that radiates bilaterally to sides of abdomen, but not to his back. Denies N/V, constipation. Review of Systems: Constitutional: Negative for fevers, chills, fatigue, appetite changes, weight gain or weight loss. Eyes: Negative for visual disturbance. Ears, nose, mouth, throat, and face: Negative for sore throat, rhinorrhea. Respiratory: Negative for cough, shortness of breath or wheezing. Cardiovascular: Negative for chest pain or palpitations. Gastrointestinal: Positive for abdominal pain, negative for nausea, vomiting, constipation, diarrhea, hematemesis, hematochezia and melena. Genitourinary: Negative for dysuria, frequency, urgency or incontinence. Hematologic/lymphatic: Negative for bleeding or easy bruising Integument: Negative for rash or ulcers Musculoskeletal: Negative for myalgias or arthralgias. Neurological: Negative for dizziness, lightheadedness, headache. Past Medical History: Past Medical History: Diagnosis Date ??? Arthrogryposis 06/15/2021 ??? Controlled type 2 diabetes mellitus without complication, without long-term current use of insulin ([facility]) 06/16/2021 ??? 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 KARRIE (obstructive sleep apnea) 09/12/2021 - HTN - High cholesterol Surgical History: Past Surgical History: Procedure Laterality Date ??? Laparotomy N/A 09/17/2021 N/A; LAPAROTOMY EXPLORATORY, BOWEL RESECTION, ENTROLYSIS - Septoplasty 2020 Social History: Social History Socioeconomic History ??? Marital status: Single Tobacco Use ??? Smoking status: Never ??? Smokeless tobacco: Former Types: Chew Quit date: 09/15/2020 Vaping Use ??? Vaping Use: Never used Substance and Sexual Activity ??? Alcohol use: Yes, 6-8 drinks per week Comment: occ ??? Drug use: Never Family History: Hypertension in grandparents Heart disease in grandparents Allergies: Denies. Home Medications: Current Medications Alcohol Swabs (ALCOHOL PREP) 70 % USE 1 SWAB TO CLEAN SKIN TWICE DAILY BEFORE TESTING amLODIPine (NORVASC) 10 MG tablet Take 10 mg by mouth once daily blood glucose (ONETOUCH VERIO) test strip USE 1 STRIP TO CHECK BLOOD SUGAR TWICE DAILY Reasons: FORDIABETES EDUCATION Blood Glucose Monitoring Suppl (NeurOpticsUCH VERIO REFLECT) w/Device KIT Use 1 Units 2 times daily USE MACHINE TO CHECK BLOOD SUGAR TWICE DAILY cetirizine (ZYRTEC) 5 MG chew tablet Take 5 mg by mouth once daily cyclobenzaprine (FLEXERIL) 10 MG tablet Take 1 (one) tablet by mouth 3 times daily HYDROcodone-acetaminophen (NORCO) 7.5-325 MG tablet Take 1 (one) tablet by mouth every 6 hours as needed for Pain Lancets (Elite Form DELICA PLUS 33G EXTRA FINE LANCET) USE 1 LANCET TO PRICK FINGER TWICE DAILY BEFORE TESTING lidocaine (LIDODERM) 5 % patch Apply 1 (one) patch to skin every 24 hours lisinopril (PRINIVIL; ZESTRIL) 40 MG tablet Take 40 mg by mouth once daily loratadine (CLARITIN) 10 MG tablet Take 10 mg by mouth once daily as needed montelukast (SINGULAIR) 10 MG tablet Take 10 mg by mouth at bedtime omeprazole (PRILOSEC) 40 MG capsule Take 40 mg by mouth once daily polyethylene glycol 3350 (MIRALAX) 17 GM/SCOOP powder Take 17 (seventeen) g by mouth once daily pravastatin (PRAVACHOL) 40 MG tablet Take 1 tablet by mouth every evening SALINE NASAL SPRAY NA SITagliptin (JANUVIA) 25 MG tablet Take 25 mg by mouth once daily traMADol 100 MG TABS Take 100 mg by mouth every 8 hours Physical Examination: BP 135/85 Pulse 98 Temp 98.1 ??F (36.7 ??C) (Temporal) Resp 16 Ht 1.778 m (5' 10 ) Wt 117.9 kg (260 lb) SpO2 95% Comments; NG tube securely in place GEN: In NAD HEENT: NCAT, EOMI, MMM RESP: Clear to auscultation bilaterally CARDIO: Regular rate and rhythm, Nl S1 and S2 No gallops. GI: Abdomen soft and mildly tender on palpation in periumbilical region non- distended, +BS, no organomegaly EXT: No edema. NEURO: No focal deficits PSYCH: A+Ox3 SKIN: Warm and dry, no rashes or lesions Labs: CBC: Recent Labs Lab Units 03/17/22 0341 WBC 10??3/uL 24.2* RBC 10??6/uL 5.28 HGB g/dL 13.7 HCT % 43.2 BMP: Recent Labs Lab Units 03/17/22 0341 NA mmol/L 138 CL mmol/L 105 CO2 mmol/L 20* BUN mg/dL 14 CREATININE mg/dL 0.83 CALCIUM mg/dL 10.1 LFTs: Recent Labs Lab Units 03/17/22 0341 AST U/L 17 ALT U/L 40 TBILI mg/dL 1.0 ALB g/dL 4.1 Radiology: XR ABDOMEN KUB Result Date: 03/17/2022 IMPRESSION: Enteric tube terminates in the stomach. IGinette MD have personally reviewed andinterpreted this examination/study. > Interpreting Provider: Ginette Wellington MD on 03/17/2022 8:[address] ABDOMEN PELVIS W CONTRAST Result Date: 03/17/2022 Impression: 1.Mild small bowel dilation, predominantly in the right abdomen, gradually tapering down in the distal ileum. There is no definitive transition point, likely representing partial bowel obstruction versus ileus. No pneumatosis. 2.There is mild mesenteric stranding in the lower abdomen around the anastomosis, which may represent postoperative changes or reactive changes. These findings were discussed in detail with the patient's care provider, Ms. Plascencia ([place]) by Dr. Fitch via telephone at 5:00 PM on 03/17/2022 with readback comprehension and verification. > Dictated by Gwen Fitch MD(consultant luxury and auto. vice president [employer] (ex )). IAndrea have personally reviewed and interpreted this examination/ study. > Interpreting Provider: Andrea Guillory on 03/17/2022 9:36 AM Assessment & Plan SBO - past medical history s/f gastroschisis, SBO as an , and SBO w/ exploratory laparotomy and small bowel resection, on 09/17/2021 - CT A/P 03/17 revealed mild dilation of SB in R abdomen, gradually tapering down in the distal ileum. No evidence of transition point, likely representing partial SBO vs. Ileus PLAN: NG tube with intermittent suction (NG tube was accidentally pulled out while repositioning patient,but successfully re-inserted, with KUB confirming proper placement) Antiemetics Pain control with Tylenol IV 1g q8 PRN for mild/moderate and 0.5 mg Dilaudid q4 PRN for severe IV fluids NPO, Advance diet as tolerated Surgery c/s appreciate recs -> no surgical intervention at this time Leukocytosis - likely 2/2 SBO - no signs/symptoms of infection - UA negative - Bcx pending - continue to monitor T2DM - Hgb A1c 6.5 - on Januvia at home - SSI, bedside glucose QID HTN - Hold home Amlodipine, Lisinopril , as BP is stable; resume once SBO improves - monitor and restart as needed Hyperlipidemia - continue statin once SBO improves DVT PPx: Heparin Code Status: Full Discharge Planning: Pharmacy: Will determine PCP: Pankaj Rosenberg MD PT/OT Consulted: No SW/Dispo: Inpatient This was discussed with the Attending Physician. Jay King PA-C General Internal Medicine 03/17/2022 11:42 AM documented in this encounter Consult Notes * Diane Hyatt MD - 03/17/2022 10:41 AM CDT ACUTE CARE SURGERY CONSULT NOTE ADMIT: 03/17/2022 2:29 AM LOS: 0 days 03/17/2022 History of Present Illness: Chuck Barlow is a 26 year old male with PMHx s/f gastroschisis, SBO as an infant, and SBO w/ small bowel resection in 09/17/2021, HTN, HLD, and T2DM who presented to the ED initially for 1-day of worsening periumbilical pain and nausea. He first noticed the abd pain upon waking up yesterday (03/16), andthe pain worsened and became sharp throughout the day. It radiates to his L and R abdomen. He says the pain feels similar to when I had my last obstruction. Pt has also been nauseated, and he had 1episode of bilious, non-bloody emesis upon [facility]. He reports passing gas while waiting for a room in the ED, and he last passed a normal BM yesterday. Pt's last full meal was around noon yesterday, but he had a piece of chicken last night. Laboratory workup in the ED revealed a WBC of 24.2 and initial lactate of 3.0 w/ repeat lactate 1.6. CT abdomen revealed mild small bowel dilation with no definitive transition point suggesting partial small bowel obstruction. NG tube was successfully placed in the ED, and pt's pain and nausea have improved since onset. Past Medical History: Past Medical History: Diagnosis Date ??? Arthrogryposis 06/15/2021 ??? Controlled type 2 diabetes mellitus without complication, without long-term current use of insulin ([facility]) 06/16/2021 ??? 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 KARRIE (obstructive sleep apnea) 09/12/2021 - HTN - High cholesterol Past Surgical History: Past Surgical History: Procedure Laterality Date ??? Laparotomy N/A 09/17/2021 N/A; LAPAROTOMY EXPLORATORY, BOWEL RESECTION, ENTROLYSIS Home Medications: Current Facility-Administered Medications Medication ??? 0.9% NaCl infusion ??? 0.9% NaCl injection 3 mL And ??? 0.9% NaCl injection 1-10 mL ??? cefTRIAXone (Rocephin) 2,000 mg in 0.9% NaCl IV 50 mL IVPB ??? HYDROmorphone (Dilaudid) injection 0.5 mg ??? phenol 1.4 % liquid 1 spray ??? prochlorperazine (Compazine) injection 5 mg Current Outpatient Medications Medication Sig ??? Alcohol Swabs (ALCOHOL PREP) 70 % USE 1 SWAB TO CLEAN SKIN TWICE DAILY BEFORE TESTING ??? amLODIPine (NORVASC) 10 MG tablet Take 10 mg by mouth once daily ??? blood glucose (ONETOUCH VERIO) test strip USE 1 STRIP TO CHECK BLOOD SUGAR TWICE DAILY Reasons:FOR DIABETES EDUCATION ??? Blood Glucose Monitoring Suppl (ONETOUCH VERIO REFLECT) w/Device KIT Use 1 Units 2 times daily USE MACHINE TO CHECK BLOOD SUGAR TWICE DAILY ??? cetirizine (ZYRTEC) 5 MG chew tablet Take 5 mg by mouth once daily ??? cyclobenzaprine (FLEXERIL) 10 MG tablet Take 1 (one) tablet by mouth 3 times daily (Patient nottaking: Reported on 10/07/2021) ??? HYDROcodone-acetaminophen (NORCO) 7.5-325 MG tablet Take 1 (one) tablet by mouth every 6 hours as needed for Pain (Patient not taking: Reported on 10/07/2021) ??? Lancets (ONETOUCH DELICA PLUS 33G EXTRA FINE LANCET) USE 1 LANCET TO PRICK FINGER TWICE DAILY BEFORE TESTING ??? lidocaine (LIDODERM) 5 % patch Apply 1 (one) patch to skin every 24 hours (Patient not taking: Reported on 10/07/2021) ??? lisinopril (PRINIVIL; ZESTRIL) 40 MG tablet [...] once daily(Patient not taking: Reported on 10/07/2021) ??? pravastatin (PRAVACHOL) 40 MG tablet Take 1 tablet by mouth every evening ??? SALINE NASAL SPRAY NA ??? SITagliptin (JANUVIA) 25 MG tablet Take 25 mg by mouth once daily ??? traMADol 100 MG TABS Take 100 mg by mouth every 8 hours (Patient not taking: Reported on 10/07/2021) Allergies: No Known Allergies Social History: Social History Socioeconomic History ??? Marital status: Single Tobacco Use ??? Smoking status: Never ??? Smokeless tobacco: Former Types: Chew Quit date: 09/15/2020 Vaping Use ??? Vaping Use: Never used Substance and Sexual Activity ??? Alcohol use: Yes Comment: occ ??? Drug use: Never Family History: No family history on file. Review of Systems: positives are in bold; [...] problems Endocrine: polyuria, polydipsia, polyphagia, heat/cold intolerance Objective: BP 135/85 Pulse 98 Temp 98.1 ??F (36.7 ??C) (Temporal) Resp 16 Ht 5' 10 (1.778 m) Wt 260lb (117.9 kg) SpO2 95% Physical Exam: Vital Signs: Temp: [98.1 ??F (36.7 ??C)] Pulse: [98] Resp: [16] BP: (135-142)/(85-92) SpO2: [95 %] GEN: Sitting comfortably in bed; no acute distress; not toxic appearing HEENT: NG tube in place; head atraumatic Resp: Non-labored breathing on room air; lungs are clear to auscultation bilaterally CV: RRR Abd: Soft, mild diffuse tenderness; normoactive BS in all quadrants; no rebound/guarding; no peritoneal signs; negative Ashton's sign; negative McBurney's sign; prior vertical midline incision is well-healed w/ no signs of infection MSK: No edema Neuro: No focal deficits; able to move all his extremities Labs: CBC: Lab results smartLinks are not currently available BMP: Lab results smartLinks are not currently available Recent Labs Component Name 03/17/2234009/22/2125109/21/21 0235 WBC 24.2* 9.5 10.1 HGB 13.7 12.0 10.7* HCT 43.2 36.4 32.3* Recent Labs Component Name 03/17/2234009/22/2125109/21/21 0235 09/20/21 0935 NA 138 141 141 141 CL 105 105 103 103 CO2 20* 23 27 25 BUN 14 8 5* 5* CREATININE 0.83 0.80 0.58* 0.60* CALCIUM 10.1 9.6 9.3 9.3 MAGNESIUM - 1.9 1.8 1.8 Recent Labs Component Name 03/17/22 0341 09/15/21 1848 PROT 8.2 7.7 ALB 4.1 3.7 TBILI 1.0 1.2 AST 17 22 ALT 40 47 ALKPHOS 113 80 No results for input(s): PROTIME, INR, PTT in the last 95956 hours. Imaging: XR ABDOMEN KUB Result Date: 03/17/2022 IMPRESSION: Enteric tube terminates in the stomach. I, Ginette Wellington MD have personally reviewed andinterpreted this examination/study. > Interpreting Provider: Ginette Wellington MD on 03/17/2022 8:[address] ABDOMEN PELVIS W CONTRAST Result Date: 03/17/2022 Impression: 1.Mild small bowel dilation, predominantly in the right abdomen, gradually tapering down in the distal ileum. There is no definitive transition point, likely representing partial bowel obstruction versus ileus. No pneumatosis. 2.There is mild mesenteric stranding in the lower abdomen around the anastomosis, which may represent postoperative changes or reactive changes. These findings were discussed in detail with the patient's care provider, Ms. Plascencia ([place]) by Dr. Fitch via telephone at 5:00 PM on 03/17/2022 with readback comprehension and verification. > Dictated by Gwen Fitch MD(consultant luxury and auto. vice president [employer] (ex )). IAndrea have personally reviewed and interpreted this examination/ study. > Interpreting Provider: Andrea Guillory on 03/17/2022 9:36 AM Assessment: Chuck Barlow is a 26 year old male with PMHx s/f gastroschisis, SBO as an , and SBOw/ small bowel resection in 09/17/2021, presenting here today for partial small bowel obstruction evident on CT scan. NG tube was placed for low intermittent wall suction. No acute abdomen signs. Pt also has leukocytosis (WBC 24.2). Plan: - NPO; pt may have occasional ice chips and cough drops while NG tube is in place - Continue decompression w/ low intermittent wall suction by NG tube - No acute surgical intervention at this time - Recommend further workup of leukocytosis; please contact surgery with any questions/concerns Debi Martinez 3rd-year Medical Student Chief Resident Attestation I have independently examined the patient and agree with the above note, except where addended. Leukocytosis not typical for SBO of 1-day duration, and patient is passing flatus and last BM was day prior to presentation. Recommend further workup for etiology of leukocytosis, which could also be thecausative agent of his emesis. If patient continues to pass flatus and have BMs, will likely remove NG tube tomorrow AM. Diane Hyatt MD 03/17/2022 11:24 AM Associated attestation - Devang Noel MD - 03/19/2022 5:07 PM CDT I have seen and examined the patient with the resident and I agree with the findings and plan of care as documented by the resident. Date of Service: 03/17 Patient seen and examined, having symptoms of pSBO h/o Gastroschisis Will manage non operatively at first Devang Noel MD documented in this encounter ED Notes * Lacy Mercedes RN - 03/17/2022 8:22 AM CDT Xray performed to check NG placement * Marshall Cotton MD - 03/17/2022 8:02 AM CDT Bed: [facility] Expected date: Expected time: Means of arrival: Comments: Fast track Alpha * Devang Noel MD - 03/17/2022 6:48 AM CDT ED Attending Note History: Chuck Barlow is a 26 year old male with a past medical history that includes HTN, HLD, T2DM, GERD, gastroschisis, two SBO s/p small bowel resections prior to age 4, and an additional SBO s/p ex-lap, small bowel resection, and enterolysis on 09/17 is presenting to the ED c/o sharp perumbilical abdominalpain that began on Tuesday (03/16) morning. He states that he recently had a bowel resection in September and he states his pain feels similar to when he needed the procedure. Patient states he had a normalBM yesterday. He reports that his pain has progressively worsened. Patient states that he was vomited multiple times during his ED stay. He denies any blood in his stool or vomit. He mentions that heis currently still nauseous. Patient states that he is still passing gas. Patient also reports that his GI wanted his gallbladder to be removed as well, but his GI wanted to wait. Patient denies a fever, chills, shortness of breath, and chest pain. Patient has no other complaints or modifying factors. Past Medical History: Diagnosis Date ??? Arthrogryposis 06/15/2021 ??? Controlled type 2 diabetes mellitus without complication, without long-term current use of insulin ([facility]) 06/16/2021 ??? 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 KARRIE (obstructive sleep apnea) 09/12/2021 Past Surgical History: Procedure Laterality Date ??? Laparotomy N/A 09/17/2021 N/A; LAPAROTOMY EXPLORATORY, BOWEL RESECTION, ENTROLYSIS Social History Socioeconomic History ??? Marital status: [...] Never true Transportation Needs: Not on file Physical Activity: Not on file Stress: Not on file Social Connections: Not on file Intimate Partner Violence: Not on file Housing Stability: Not on file Review of Systems: Review of Systems Constitutional: Negative for chills, fever and malaise/fatigue. HENT: Negative for congestion, ear pain and sore throat. Eyes: Negative for blurred vision, pain and discharge. Respiratory: Negative for cough and shortness of breath. Cardiovascular: Negative for chest pain and palpitations. Gastrointestinal: Positive for abdominal pain, nausea and vomiting. Negative for diarrhea. Genitourinary: Negative for dysuria, frequency and hematuria. Musculoskeletal: Negative for back pain, myalgias and neck pain. Skin: Negative for itching and rash. Neurological: Negative for dizziness, tingling and headaches. Psychiatric/Behavioral: Negative for depression and suicidal ideas. Patient Vitals for the past 6 hrs: BP 03/17/22 0824 135/85 Exam: Physical Exam Vitals and nursing note reviewed. Constitutional: General: He is not in acute distress. Appearance: He is not diaphoretic. HENT: Head: Normocephalic and atraumatic. Mouth/Throat: Mouth: Mucous membranes are moist. Eyes: General: No scleral icterus. Extraocular Movements: Extraocular movements intact. Conjunctiva/sclera: Conjunctivae normal. Pupils: Pupils are equal, round, and reactive to light. Cardiovascular: Rate and Rhythm: Normal rate and regular rhythm. Pulses: Normal pulses. Radial pulses are 2+ on the right side and 2+ on the left side. Dorsalis pedis pulses are 2+ on the right side and 2+ on the left side. Heart sounds: No murmur heard. No friction rub. No gallop. Pulmonary: Effort: Pulmonary effort is normal. No respiratory distress. Breath sounds: Normal breath sounds. No wheezing. Abdominal: General: Abdomen is flat. Bowel sounds are normal. There is no distension. Palpations: Abdomen is soft. Tenderness: There is abdominal tenderness in the right lower quadrant and periumbilical area. Musculoskeletal: General: No swelling or deformity. Normal range of motion. Cervical back: Normal range of motion and neck supple. Skin: General: Skin is warm and dry. Findings: No bruising. Neurological: General: No focal deficit present. Mental Status: He is alert and oriented to person, place, and time. Psychiatric: Mood and Affect: Mood normal. Behavior: Behavior normal. Medical Decision Makin. Abdominal pain DDX: SBO vs partial SBO vs bowel ischemia vs appendicitis vs pancreatitis vs cholecystitis vs metabolic abnormality vs other Plan: labs, CT A/P, symptomatic management, reassess, anticipate admission Results: Labs Reviewed COMPREHENSIVE METABOLIC PANEL - Abnormal; Notable for the following components: Result Value CO2 20 (*) Glucose 158 (*) Albumin/Globulin Ratio 1.0 (*) All other components within normal limits CBC W AUTO DIFFERENTIAL - Abnormal; Notable for the following components: WBC 24.2 (*) MCH 25.9 (*) Platelet Count 484 (*) Neutrophils % 85.0 (*) Lymphocytes % 10.1 (*) Monocytes % 3.8 (*) Neutrophils Absolute 20.57 (*) All other components within normal limits LACTIC ACID BLOOD - Abnormal; Notable for the following components: Lactic Acid-Stat 3.0 (*) All other components within normal limits LIPASE BLOOD - Normal PROCALCITONIN LEVEL - Normal Narrative: The change in procalcitonin (PCT) concentration over time provides support in decision making on antibiotic discontinuation for suspected or confirmed septic patients. Follow-up samples should be tested once every 1-2 days based upon physician discretion taking into account the patient???s evolution and progress. Consider discontinuation of antibiotic therapy if the PCT current is <= 0.5 ng/mL or if the delta PCT is > 80%. Duration of antibiotics should not be determined solely on PCT; established guidelines for the indication should be followed. ?? PCT peak: Highest observed PCT concentration ?? PCT current: Most recent PCT concentration ?? Calculate delta PCT using the following equation: Delta PCT = PCT Peak - PCT current X 100% PCT Peak The Change in Procalcitonin Calculator is available at [email or web address] If clinical picture has not improved and PCT remains high, reevaluate and consider treatment failure or other causes. LACTIC ACID BLOOD REFLEX TO REPEAT - Normal CREATININE - POCT INTERFACED - Normal CULTURE BLOOD CULTURE BLOOD URINALYSIS REFLEX TO MICROSCOPIC NO CULTURE XR ABDOMEN KUB Final Result PROCEDURE: XR ABDOMEN KUB, DATE/TIME OF EXAM: 03/17/2022 8:14 AM, LOCATION [facility] INDICATION: K56.600: Partial small bowel obstruction (CMS/HCC) R11.14: Bilious vomiting with nausea ADDITIONAL CLINICAL INFORMATION: Ordering Provider Reason For Exam: post-NGT placement IMPRESSION: Enteric tube terminates in the stomach. I, Ginette Wellington MD have personally reviewed and interpreted this examination/study. > Interpreting Provider: Ginette Wellington MD on 03/17/2022 8:[address] ABDOMEN PELVIS W CONTRAST Final Result EXAMINATION: CT ABDOMEN PELVIS W CONTRAST DATE/TIME OF EXAM: 03/17/2022 4:33 AM, LOCATION [facility] HISTORY: R10.13: Abdominal pain, epigastric 26M with h/o arthrogryposis, gastroschisis, multiple small bowel obstructions s/p small bowel resection x 2 in childhood and on 09/17/2021 . evaluate SBO COMPARISON: CT abdomen pelvis with contrast dated 09/15/2021 TECHNIQUE: CT of the abdomen and pelvis was performed following the uneventful administration of 100 mL of Isovue 370 intravenous contrast according to standard protocol. Findings: Lower Chest: The visible lung bases are clear. The heart size is normal without pericardial effusion. Liver: The liver enhances homogenously. The portal vein is patent. Gallbladder and Bile Ducts: The gallbladder is nondistended. The intrahepatic and extrahepatic bile ducts are nondilated. Spleen: Normal. Pancreas: Normal. Adrenals: Normal in morphology without mass lesion. Kidneys: The kidneys enhance symmetrically. There is no evidence of renal calculus or hydronephrosis. Gastrointestinal: The distal esophagus and stomach appear normal. Suture line in the small bowel loop in the midabdomen with focal bowel dilatation measuring up to 4.8 cm proximal to the small bowel anastomosis (series 4 image 52), favored to represent expected postoperative changes. There is mild diffuse dilatation of the small bowel loops in the right abdomen, measuring up to 3.3 cm (series 3 image 116), gradually tapering down in the distal ileum, without a definitive transition point. Ventrally oriented small bowel loops likely related to adhesions. No bowel wall thickening/hypoenhancement or pneumatosis. The colon and proximal small bowel are nondilated. The cecum is identified in the left mid abdomen. The appendix is not identified. There is no inflammatory changes around the cecum. Mesentery/Peritoneum/Retroperitoneum: Multiple prominent mesenteric lymph nodes and 1.3 cm portacaval lymph node (series 3 image 52) are likely reactive. There is no free intraperitoneal air or fluid. There is mild mesenteric stranding in the lower abdomen (series 4 image 60). Bladder: Normal. Reproductive Organs: The prostate is normal in size with punctate calcification. Vasculature: No vascular abnormality is present. Bones: No suspicious lytic or blastic lesions. The visible osseous structures are intact. Soft tissues: Normal. Impression: 1.Mild small bowel dilation, predominantly in the right abdomen, gradually tapering down in the distal ileum. There is no definitive transition point, likely representing partial bowel obstruction versus ileus. No pneumatosis. 2.There is mild mesenteric stranding in the lower abdomen around the anastomosis, which may represent postoperative changes or reactive changes. These findings were discussed in detail with the patient's care provider, Ms. Plascencia ([place]) by Dr. Fitch via telephone at 5:00 PM on 03/17/2022 with readback comprehension and verification. > Dictated by Gwen Fitch MD (consultant luxury and auto. vice president [employer] (ex )). I, Andrea Guillory have personally reviewed and interpreted this examination/study. > Interpreting Provider: Andrea Guillory on 03/17/2022 9:36 AM ED course: The patient's Oxygen Saturation Monitor was interpreted by me. The reading was 99%. The patient wason RA at the time of the reading. This is interpreted as normal. 6:51 AM Labs reviewed. Leukocytosis to 24.2. H&H is stable. Creatinine at baseline. No marked electrolyte abnormality. Lactic is elevated. Lipase is negative. CT A/P reads mild small bowel dilation, predominantly in the right abdomen, gradually tapering down in the distal ileum. There is no definitive transition point, likely representing partial bowel obstruction. There is mild mesenteric stranding in the lower abdomen around the anastomosis, which may represent postoperative changes or reactive changes. Will order Rocephin and will consult ACS. 7:06 AM Discussed all the pertinent aspects of the case with ACS who will see the patient. 10:41 AM Spoke with ACS who recommends admission to medicine. Per ACS, no acute surgical intervention required at this time. Med admissions paged. 10:58 AM After discussion with medicine, the patient will be admitted to their service for further management of nausea, vomiting, and partial SBO. Admitting provider is Dr. Funk. -I have reviewed the diagnostic findings with the patient and they have had an opportunity to ask me any questions they have about care, diagnosis, and reason for admission. The patient states understanding and agrees to admission. - Medicine team has assumed care Consult Yes 1. ACS Procedure done at this time No Ultrasound done at this time No Orders Placed This Encounter ??? CULTURE BLOOD ??? CT ABDOMEN PELVIS W CONTRAST ??? XR ABDOMEN KUB ??? COMPREHENSIVE METABOLIC PANEL ??? CBC W AUTO DIFFERENTIAL ??? LACTIC ACID BLOOD ??? LIPASE BLOOD ??? URINALYSIS REFLEX TO MICROSCOPIC NO CULTURE ??? PROCALCITONIN LEVEL ??? LACTIC ACID BLOOD REFLEX TO REPEAT ??? IP CONSULT TO GENERAL SURGERY ??? AND Linked Order Group ??? 0.9% NaCl injection 3 mL ??? 0.9% NaCl injection 1-10 mL ??? ondansetron (Zofran) injection 4 mg ??? famotidine (Pepcid) injection 20 mg ??? iopamidol (Isovue 370) contrast ADS Med ??? cefTRIAXone (Rocephin) 2,000 mg in 0.9% NaCl IV 50 mL IVPB ??? 0.9% NaCl infusion ??? prochlorperazine (Compazine) injection 5 mg ??? DISCONTD: HYDROmorphone (Dilaudid) injection 0.2 mg ??? HYDROmorphone (Dilaudid) injection 0.2 mg ??? phenol 1.4 % liquid 1 spray ??? HYDROmorphone (Dilaudid) injection 0.5 mg ??? DISCONTD: phenol 1.4 % liquid 1 spray Medications 0.9% NaCl injection 3 mL (3 mL Intracatheter $ Given 03/17/22 0745) And 0.9% NaCl injection 1-10 mL (has no administration in time range) cefTRIAXone (Rocephin) 2,000 mg in 0.9% NaCl IV 50 mL IVPB (2,000 mg Intravenous $ Bolus New Bag 03/17/22 0523) 0.9% NaCl infusion ( Intravenous $ New Bag 03/17/22 0800) prochlorperazine (Compazine) injection 5 mg (5 mg Intravenous $ Given 03/17/22 0743) phenol 1.4 % liquid 1 spray (1 spray Mouth/Throat $ Given 03/17/22 1045) ondansetron (Zofran) injection 4 mg (4 mg Intravenous $ Given 03/17/22 0402) famotidine (Pepcid) injection 20 mg (20 mg Intravenous $ Given 03/17/22 0402) iopamidol (Isovue 370) contrast ADS Med (100 mL $ Given - Contrast 03/17/22 9693) HYDROmorphone (Dilaudid) injection 0.2 mg (0.2 mg Intravenous $ Given 03/17/22 3713) HYDROmorphone (Dilaudid) injection 0.5 mg (0.5 mg Intravenous $ Given 03/17/22 9421) Clinical Impression: 1. Abdominal pain, epigastric 2. Partial small bowel obstruction (CMS/HCC) 3. Bilious vomiting with nausea Disposition: Admitted to medicine By signing my name below, I, Pattie Espinal, attest that this documentation has been prepared under the direction and in the presence of Dr. Shepherd. Signed: Kenyatta Le. I, Dr. Shepherd, personally performed the services described in this documentation. All medical record entries made by the scribe were at my direction and in my presence. I have reviewed the chart andagree that the record reflects my personal performance and is accurate and complete. documented in this encounter Plan of Treatment Not on file documented as of this encounter Procedures Procedure Name Priority Date/Time Associated Diagnosis Comments GLUCOSE - POINT OF CARE Routine 03/21/2022 8:15 AM SPRAY DRIER OPERATOR CBC W/O DIFFERENTIAL AM Draw 03/21/2022 6:06 AM SPRAY DRIER OPERATOR RENAL FUNCTION PANEL Routine 03/21/2022 6:06 AM SPRAY DRIER OPERATOR MAGNESIUM BLOOD Routine 03/21/2022 6:06 AM SPRAY DRIER OPERATOR GLUCOSE - POINT OF CARE Routine 03/20/2022 8:42 PM CDT GLUCOSE - POINT OF CARE Routine 03/20/2022 5:08 PM CDT GLUCOSE - POINT OF CARE Routine 03/20/2022 12:21 PM CDT GLUCOSE - POINT OF CARE Routine 03/20/2022 7:51 AM CDT RENAL FUNCTION PANEL Routine 03/20/2022 4:28 AM CDT MAGNESIUM BLOOD Routine 03/20/2022 4:28 AM CDT CBC W/O DIFFERENTIAL AM Draw 03/20/2022 4:27 AM CDT GLUCOSE - POINT OF CARE Routine 03/19/2022 8:23 PM CDT GLUCOSE - POINT OF CARE Routine 03/19/2022 5:39 PM CDT GLUCOSE - POINT OF CARE Routine 03/19/2022 11:45 AM CDT GLUCOSE - POINT OF CARE Routine 03/19/2022 7:37 AM CDT CBC W/O DIFFERENTIAL AM Draw 03/19/2022 3:21 AM CDT RENAL FUNCTION PANEL Routine 03/19/2022 3:21 AM CDT MAGNESIUM BLOOD Routine 03/19/2022 3:21 AM CDT GLUCOSE - POINT OF CARE Routine 03/18/2022 7:58 PM CDT GLUCOSE - POINT OF CARE Routine 03/18/2022 3:48 PM CDT GLUCOSE - POINT OF CARE Routine 03/18/2022 12:30 PM CDT GLUCOSE - POINT OF CARE Routine 03/18/2022 7:50 AM CDT CBC W/O DIFFERENTIAL AM Draw 03/18/2022 4:19 AM CDT RENAL FUNCTION PANEL Routine 03/18/2022 4:19 AM CDT MAGNESIUM BLOOD Routine 03/18/2022 4:19 AM CDT GLUCOSE - POINT OF CARE Routine 03/17/2022 10:20 PM CDT GLUCOSE - POINT OF CARE Routine 03/17/2022 6:16 PM CDT URINALYSIS REFLEX TO MICROSCOPIC NO CULTURE STAT 03/17/2022 5:03 PM CDT XR ABDOMEN KUB PORTABLE STAT 03/17/2022 3:16 PM CDT Abdominal pain, epigastric Bilious vomiting with nausea XR ABDOMEN KUB PORTABLE STAT 03/17/2022 1:24 PM CDT Abdominal pain, epigastric LACTIC ACID BLOOD REFLEX TO REPEAT STAT 03/17/2022 8:33 AM CDT XR ABDOMEN KUB STAT 03/17/2022 8:27 AM CDT Partial small bowel obstruction (HCC) Bilious vomiting with nausea CULTURE BLOOD Timed 03/17/2022 5:27 AM CDT PROCALCITONIN LEVEL STAT 03/17/2022 5 :22 AM CDT CULTURE BLOOD Timed 03/17/2022 5:[address] ABDOMEN PELVIS W CONTRAST STAT 03/17/2022 4:31 AM CDT Abdominal pain, epigastric CREATININE - POCT INTERFACED Routine 03/17/2022 4:16 AM CDT CBC W AUTO DIFFERENTIAL STAT 03/17/2022 3:41 AM CDT COMPREHENSIVE METABOLIC PANEL STAT 03/17/2022 3:41 AM CDT LIPASE BLOOD STAT 03/17/2022 3:41 AM CDT LACTIC ACID BLOOD STAT 03/17/2022 3:4 1 AM CDT documented in this encounter Results * GLUCOSE - POINT OF CARE (03/21/2022 8:15 AM SPRAY DRIER OPERATOR) Pathologist [facility] Glucose WB/POC 96 70 - 115 mg/dL 03/21/2022 8:45 AM [facility] Specimen Type Cap Fingerstick 2021 8:45 AM [facility] Blood BLOOD SPECIMEN / Unknown 03/21/2022 8:15 AM SPRAY DRIER OPERATOR 03/21/2022 8:45 AM SPRAY DRIER OPERATOR Modesto Traylor MD LAB - POINT OF CARE ORDERABLES [facility] [address] [place] [address], [place] [phone] * MAGNESIUM BLOOD (03/21/2022 6:06 AM SPRAY DRIER OPERATOR) [facility] Magnesium 2.1 1.6 - 2.6 mg/dL 03/21/2022 8:26 AM [facility] Blood BLOOD SPECIMEN / Unknown Lab Venipuncture / Unknown 03/21/2022 6:06 AM SPRAY DRIER OPERATOR 03/21/2022 7:05 AM SPRAY DRIER OPERATOR Jay King PA-C LAB - CHEMISTRY ORD ERABLES [facility] [address] [place] [id number], [place] [phone] * RENAL FUNCTION PANEL (03/21/2022 6:06 AM SPRAY DRIER OPERATOR) Pathologist [facility] BUN 11 7 - 26 mg/dL 03/21/2022 8:26 AM [facility] Creatinine 0.82 0.71 - 1.16 mg/dL 03/21/2022 8:26 AM [facility] Sodium 140 136 - 145 mmol/L 03/21/2022 8:26 AM [facility] Potassium 4.0 3.5 - 4.5 mmol/L 03/21/2022 8:26 AM [facility] Chloride 107 98 - 107 mmol/L 03/21/2022 8:26 AM [facility] CO2 23 22 - 29 mmol/L 03/21/2022 8:26 AM [facility] Glucose 109 70 - 115 mg/dL 03/21/2022 8:26 AM [facility] Albumin 3.6 3.4 - 5.0 g/dL 03/21/2022 8:26 AM [facility] Calcium 9.3 8.4 - 10.2 mg/dL 03/21/2022 8:26 AM [facility] Phosphorus 3.7 2.8 - 5.1 mg/dL 03/21/2022 8:26 AM [facility] Anion Gap 14 8 - 18 03/21/2022 8:26 AM [facility] BUN/Creatinine Ratio 13 7 - 23 03/21/2022 8:26 AM [facility] Osmolality Calculated 290 270 - 300 mOsm/kg 03/21/2022 8:26 AM [facility] eGFR by CKD-EPI >90 >=90 mL/min/1.7 3 m2 03/21/2022 8:26 AM [facility] Blood BLOOD SPECIMEN / Unknown Lab Venipuncture / Unknown 03/21/2022 6:06 AM [facility] 03/21/2022 7:05 AM [facility] Jay King PA-C LAB - CHEMISTRY ORD ERABLES [facility] [address] [place] [address], [facility] [phone] * (ABNORMAL) CBC W/O DIFFERENTIAL (03/21/2022 6:06 AM [facility]) WBC 6.7 3.5 - 10.5 10? 3 /uL 03/21/2022 7:14 AM [facility] RBC 4.97 4.30 - 5.70 10? 6 /uL 03/21/2022 7:14 AM [facility] Hemoglobin 13.1 12.0 - 17.6 g/dL 03/21/2022 7:14 AM [facility] Hematocrit 40.5 35.2 - 51.7 % 03/21/2022 7:14 AM [facility] MCV 81.5 80.7 - 98.3 fL 03/21/2022 7:14 AM [facility] MCH 26.4(L) 26.7 - 34.0 pg 03/21/2022 7:14 AM [facility] MCHC 32.3 30.8 - 35.9 g/dL 03/21/2022 7:14 AM [facility] RDW-SD 38.5 36.0 - 50.0 fL 03/21/2022 7:14 AM [facility] RDW-CV 13.2 11.2 - 14.8 % 03/21/2022 7:14 AM [facility] Platelet Count 324 150 - 400 10? 3 /uL 03/21/2022 7:14 AM [facility] MPV 10.2 9.4 - 12.9 fL 03/21/2022 7:14 AM [facility] nRBC Absolute 0.00 0 10? 3 /uL 03/21/2022 7:14 AM [facility] nRBC Auto 0.0 0 /100 WBC 03/21/2022 7:14 AM [facility] Blood BLOOD SPECIMEN / Unknown Lab Venipuncture / Unknown 03/21/2022 6:06 AM SPRAY DRIER OPERATOR 03/21/2022 7:04 AM SPRAY DRIER OPERATOR Jay King PA-C LAB - HEMATOLOGY OR DERABLES Performing Organization Address [facility] Co de Phone Number [facility] [address] [place] [phone] [phone] * GLUCOSE - POINT OF CARE (03/20/2022 8:42 PM CDT) Glucose WB/POC 112 70 - 115 mg/dL 03/20/2022 8:44 PM CDT [facility] Specimen Type Cap Fingerstick 2021 8:44 PM CDT [facility] Blood BLOOD SPECIMEN / Unknown 03/20/2022 8:42 PM CDT 03/20/2022 8:44 PM CDT Modesto Traylor MD LAB - POINT OF CARE ORDERABLES [address] [address], [place] [phone] * (ABNORMAL) GLUCOSE - POINT OF CARE (03/20/2022 5:08 PM CDT) Glucose WB/POC 118(H) 70 - 115 mg/dL 03/20/2022 5:20 PM CDT [facility] Specimen Type Cap Fingerstick 2021 5:20 PM CDT [facility] Blood BLOOD SPECIMEN / Unknown 03/20/2022 5:08 PM CDT 03/20/2022 5:20 PM CDT Modesto Traylor MD LAB - POINT OF CARE ORDERABLES Performing Organization Address City/[facility]/ZIP Co de Phone Number [address] [address], [place] [phone] * GLUCOSE - POINT OF CARE (03/20/2022 12:21 PM CDT) Glucose WB/POC 96 70 - 115 mg/dL 03/20/2022 12:26 PM CDT [facility] Specimen Type Cap Fingerstick 2021 12:26 PM CDT [facility] Blood BLOOD SPECIMEN / Unknown 03/20/2022 12:21 PM CDT 03/20/2022 12:26 PM CDT [place] Traylor MD LAB - POINT OF CARE ORDERABLES [address] [address], [place] [phone] * GLUCOSE - POINT OF CARE (03/20/2022 7:51 AM CDT) Glucose WB/POC 89 70 - 115 mg/dL 03/20/2022 7:56 AM CDT [facility] Specimen Type Cap Fingerstick 2021 7:56 AM CDT [facility] Blood BLOOD SPECIMEN / Unknown 03/20/2022 7:51 AM CDT 03/20/2022 7:56 AM CDT Modesto Traylor MD LAB - POINT OF CARE ORDERABLES Performing Organization Address [facility] Co de Phone Number [address] [address], [facility] [phone] * MAGNESIUM BLOOD (03/20/2022 4:28 AM CDT) Magnesium 2.1 1.6 - 2.6 mg/dL 03/20/2022 6:42 AM CDT [facility] Comment:Hemolysis detected i n this specimen. Hemolysis is known to cause elevations in this analyte. Caution should be exercised in the interpretation of this result. Recommend repeat testing if clinically indicated. Blood BLOOD SPECIMEN / Unknown Lab Venipuncture / Unknown 03/20/2022 4:28 AM CDT 03/20/2022 5:34 AM CDT Jay King PA-C LAB - CHEMISTRY ORD ERABLES Performing Organization Address [facility]/ZIP Co de Phone Number [address] [address], [facility] [phone] * (ABNORMAL) RENAL FUNCTION PANEL (03/20/2022 4:28 AM CDT) BUN 10 7 - 26 mg/dL 03/20/2022 6:37 AM CDT [facility] Creatinine 0.97 0.71 - 1.16 mg/dL 03/20/2022 6:37 AM CDT [facility] Sodium 144 136 - 145 mmol/L 03/20/2022 6:37 AM CDT [facility] Potassium 4.2 3.5 - 4.5 mmol/L 03/20/2022 6:37 AM T [facility] Comment:Hemolysis detected i n this specimen. Hemolysis may cause false elevations in potassium leading to pseudohyperkalemia or masked hypokalemia. Recommend repeat testing if clinically indicated. Chloride 109(H) 98 - 107 mmol/L 03/20/2022 6:37 AM [facility] CO2 19(L) 22 - 29 mmol/L 03/20/2022 6:37 AM [facility] Glucose 92 70 - 115 mg/dL 03/20/2022 6:37 AM [facility] Albumin 3.5 3.4 - 5.0 g/dL 03/20/2022 6:37 AM [facility] Calcium 9.2 8.4 - 10.2 mg/dL 03/20/2022 6:37 AM [facility] Phosphorus 4.5 2.8 - 5.1 mg/dL 03/20/2022 6:37 AM [facility] Anion Gap 20(H) 8 - 18 03/20/2022 6:37 AM [facility] BUN/Creatinine Ratio 10 7 - 23 1109/2021 6:37 AM [facility] Osmolality Calculated 297 270 - 300 mOsm/kg 03/20/2022 6:37 AM [facility] eGFR by CKD-EPI >90 >=90 mL/min/1. 73 m2 03/20/2022 6:37 AM [facility] Blood BLOOD SPECIMEN / Unknown Lab Venipuncture / Unknown 03/20/2022 4:28 AM CDT 03/20/2022 5:34 AM CDT Jay King PA-C LAB - CHEMISTRY ORD ERABLES Performing Organization Address [facility]/State/[facility] Co de Phone Number [facility] [address] [place] [phone] [phone] * (ABNORMAL) CBC W/O DIFFERENTIAL (03/20/2022 4:27 AM CDT) WBC 7.1 3.5 - 10.5 10? 3 /uL 03/20/2022 5:50 AM [facility] RBC 4.62 4.30 - 5.70 10? 6 /uL 03/20/2022 5:50 AM [facility] Hemoglobin 12.1 12.0 - 17.6 g/dL 03/20/2022 5:50 AM [facility] Hematocrit 37.8 35.2 - 51.7 % 03/20/2022 5:50 AM [facility] MCV 81.8 80.7 - 98.3 fL 03/20/2022 5:50 AM [facility] MCH 26.2(L) 26.7 - 34.0 pg 03/20/2022 5:50 AM [facility] MCHC 32.0 30.8 - 35.9 g/dL 03/20/2022 5:50 AM [facility] RDW-SD 38.5 36.0 - 50.0 fL 03/20/2022 5:50 AM [facility] RDW-CV 13.1 11.2 - 14.8 % 03/20/2022 5:50 AM [facility] Platelet Count 280 150 - 400 10? 3 /uL 03/20/2022 5:50 AM [facility] MPV 11.0 9.4 - 12.9 fL 03/20/2022 5:50 AM [facility] nRBC Absolute 0.00 0 10? 3 /uL 03/20/2022 5:50 AM [facility] nRBC Auto 0.0 0 /100 WBC 03/20/2022 5:50 AM [facility] Blood BLOOD SPECIMEN / Unknown Lab Venipuncture / Unknown 03/20/2022 4:27 AM CDT 03/20/2022 5:34 AM CDT Jay King PA-C LAB - HEMATOLOGY OR DERABLES [facility] [address] [place] [address], [facility] [phone] * (ABNORMAL) GLUCOSE - POINT OF CARE (03/19/2022 8:23 PM CDT) Glucose WB/POC 121(H) 70 - 115 mg/dL 03/19/2022 8:28 PM [facility] Specimen Type Cap Fingerstick 2021 8:28 PM [facility] Blood BLOOD SPECIMEN / Unknown 03/19/2022 8:23 PM CDT 03/19/2022 8:28 PM CDT Modesto Traylor MD LAB - POINT OF CARE ORDERABLES [facility] [address] [place] [address], [place] [phone] * (ABNORMAL) GLUCOSE - POINT OF CARE (03/19/2022 5:39 PM CDT) Glucose WB/POC 144(H) 70 - 115 mg/dL 03/19/2022 5:49 PM CDT [facility] Specimen Type Cap Fingerstick 2021 5:49 PM CDT [facility] Blood BLOOD SPECIMEN / Unknown 03/19/2022 5:39 PM CDT 03/19/2022 5:49 PM CDT Modesto Traylor MD LAB - POINT OF CARE ORDERABLES Performing Organization Address City/[facility]/ZIP Co de Phone Number [address] [address], [place] [phone] * (ABNORMAL) GLUCOSE - POINT OF CARE (03/19/2022 11:45 AM CDT) Glucose WB/POC 136(H) 70 - 115 mg/dL 03/19/2022 11:49 AM CDT [facility] Specimen Type Cap Fingerstick 2021 11:49 AM CDT [facility] Blood BLOOD SPECIMEN / Unknown 03/19/2022 11:45 AM CDT 03/19/2022 11:49 AM CDT Modesto Traylor MD LAB - POINT OF CARE ORDERABLES [address] [address], [place] [phone] * GLUCOSE - POINT OF CARE (03/19/2022 7:37 AM CDT) Glucose WB/POC 89 70 - 115 mg/dL 03/19/2022 7:48 AM CDT [facility] Specimen Type Cap Fingerstick 2021 7:48 AM CDT [facility] Blood BLOOD SPECIMEN / Unknown 03/19/2022 7:37 AM CDT 03/19/2022 7:48 AM CDT Modesto Traylor MD LAB - POINT OF CARE ORDERABLES [address] [address], [place] [phone] * MAGNESIUM BLOOD (03/19/2022 3:21 AM CDT) Pathologist [facility] Magnesium 2.1 1.6 - 2.6 mg/dL 03/19/2022 5:24 AM CDT [facility] Blood BLOOD SPECIMEN / Unknown Lab Venipuncture / Unknown 03/19/2022 3:21 AM CDT 03/19/2022 4:57 AM CDT Jay King PA-C LAB - CHEMISTRY ORD ERABLES Performing Organization Address City/[facility]/ZIP Co de Phone Number [address] [address], [place] [phone] * RENAL FUNCTION PANEL (03/19/2022 3:21 AM CDT) Pathologist [facility] BUN 9 7 - 26 mg/dL 03/19/2022 5:24 AM CDT [facility] Creatinine 0.82 0.71 - 1.16 mg/dL 03/19/2022 5:24 AM T [facility] Sodium 139 136 - 145 mmol/L 03/19/2022 5:24 AM T [facility] Potassium 3.6 3.5 - 4.5 mmol/L 03/19/2022 5:24 AM [facility] Chloride 105 98 - 107 mmol/L 03/19/2022 5:24 AM T [facility] CO2 26 22 - 29 mmol/L 03/19/2022 5:24 AM [facility] Glucose 79 70 - 115 mg/dL 03/19/2022 5:24 AM [facility] Albumin 3.4 3.4 - 5.0 g/dL 03/19/2022 5:24 AM [facility] Calcium 9.2 8.4 - 10.2 mg/dL 03/19/2022 5:24 AM [facility] Phosphorus 3.9 2.8 - 5.1 mg/dL 03/19/2022 5:24 AM [facility] Anion Gap 12 8 - 18 03/19/2022 5:24 AM [facility] BUN/Creatinine Ratio 11 7 - 23 03/19/2022 5:24 AM [facility] Osmolality Calculated 286 270 - 300 mOsm/kg 03/19/2022 5:24 AM [facility] eGFR by CKD-EPI >90 >=90 mL/min/1.7 3 m2 03/19/2022 5:24 AM [facility] Blood BLOOD SPECIMEN / Unknown Lab Venipuncture / Unknown 03/19/2022 3:21 AM CDT 03/19/2022 4:57 AM CDT Jay King PA-C LAB - CHEMISTRY ORD ERABLES [facility] [address] [place] [address], [facility] [phone] * (ABNORMAL) CBC W/O DIFFERENTIAL (03/19/2022 3:21 AM CDT) WBC 7.3 3.5 - 10.5 10? 3 /uL 03/19/2022 5:12 AM [facility] RBC 4.38 4.30 - 5.70 10? 6 /uL 03/19/2022 5:12 AM [facility] Hemoglobin 11.4(L) 12.0 - 17.6 g/dL 03/19/2022 5:12 AM [facility] Hematocrit 36.1 35.2 - 51.7 % 03/19/2022 5:12 AM [facility] MCV 82.4 80.7 - 98.3 fL 03/19/2022 5:12 AM T [facility] MCH 26.0(L) 26.7 - 34.0 pg 03/19/2022 5:12 AM T [facility] MCHC 31.6 30.8 - 35.9 g/dL 03/19/2022 5:12 AM [facility] RDW-SD 39.3 36.0 - 50.0 fL 03/19/2022 5:12 AM [facility] RDW-CV 13.2 11.2 - 14.8 % 03/19/2022 5:12 AM [facility] Platelet Count 306 150 - 400 10? 3 /uL 03/19/2022 5:12 AM [facility] MPV 10.2 9.4 - 12.9 fL 03/19/2022 5:12 AM [facility] nRBC Absolute 0.00 0 10? 3 /uL 03/19/2022 5:12 AM [facility] nRBC Auto 0.0 0 /100 WBC 03/19/2022 5:12 AM [facility] Blood BLOOD SPECIMEN / Unknown Lab Venipuncture / Unknown 03/19/2022 3:21 AM CDT 03/19/2022 4:57 AM CDT Jay King PA-C LAB - HEMATOLOGY OR DERABLES Performing Organization Address City/State/[facility] Co de Phone Number [facility] [address] [place] [address], [facility] [phone] * GLUCOSE - POINT OF CARE (03/18/2022 7:58 PM CDT) Glucose WB/POC 86 70 - 115 mg/dL 03/18/2022 8:06 PM CDT [facility] Specimen Type Cap Fingerstick 2021 8:06 PM CDT [facility] Blood BLOOD SPECIMEN / Unknown 03/18/2022 7:58 PM CDT 03/18/2022 8:06 PM CDT Modesto Traylor MD LAB - POINT OF CARE ORDERABLES Performing Organization Address City/[facility]/ZIP Co de Phone Number [address] [address], [place] [phone] * GLUCOSE - POINT OF CARE (03/18/2022 3:48 PM CDT) Glucose WB/POC 83 70 - 115 mg/dL 03/18/2022 3:52 PM CDT [facility] Specimen Type Cap Fingerstick 2021 3:52 PM CDT [facility] Blood BLOOD SPECIMEN / Unknown 03/18/2022 3:48 PM CDT 03/18/2022 3:52 PM CDT Modesto Traylor MD LAB - POINT OF CARE ORDERABLES Performing Organization Address [facility]/ZIP Co de Phone Number [address] [address], [place] [phone] * GLUCOSE - POINT OF CARE (03/18/2022 12:30 PM CDT) Glucose WB/POC 86 70 - 115 mg/dL 03/18/2022 12:38 PM CDT [facility] Specimen Type Cap Fingerstick 2021 12:38 PM CDT [facility] Blood BLOOD SPECIMEN / Unknown 03/18/2022 12:30 PM CDT 03/18/2022 12:38 PM CDT Modesto Traylor MD LAB - POINT OF CARE ORDERABLES Performing Organization Address City/[facility]/ZIP Co de Phone Number [address] [address], [place] [phone] * GLUCOSE - POINT OF CARE (03/18/2022 7:50 AM CDT) Glucose WB/POC 90 70 - 115 mg/dL 03/18/2022 8:00 AM CDT [facility] Specimen Type Cap Fingerstick 2021 8:00 AM CDT [facility] Blood BLOOD SPECIMEN / Unknown 03/18/2022 7:50 AM CDT 03/18/2022 8:00 AM CDT Hector Funk DO LAB - POINT OF CARE ORDERABLES Performing Organization Address City/[facility]/ZIP Co de Phone Number [address] [address], [facility] [phone] * MAGNESIUM BLOOD (03/18/2022 4:19 AM CDT) Magnesium 2.1 1.6 - 2.6 mg/dL 03/18/2022 5:41 AM T [facility] Blood BLOOD SPECIMEN / Unknown Lab Venipuncture / Unknown 03/18/2022 4:19 AM CDT 03/18/2022 5:12 AM CDT Jay King PA-C LAB - CHEMISTRY ORD ERABLES Performing Organization Address City/[facility]/ZIP Co de Phone Number [address] [address], [facility] [phone] * (ABNORMAL) RENAL FUNCTION PANEL (03/18/2022 4:19 AM CDT) BUN 13 7 - 26 mg/dL 03/18/2022 5:41 AM [facility] Creatinine 0.90 0.71 - 1.16 mg/dL 03/18/2022 5:41 AM [facility] Sodium 141 136 - 145 mmol/L 03/18/2022 5:41 AM [facility] Potassium 4.0 3.5 - 4.5 mmol/L 03/18/2022 5:41 AM [facility] Chloride 107 98 - 107 mmol/L 03/18/2022 5:41 AM [facility] CO2 22 22 - 29 mmol/L 03/18/2022 5:41 AM [facility] Glucose 90 70 - 115 mg/dL 03/18/2022 5:41 AM [facility] Albumin 3.3(L) 3.4 - 5.0 g/dL 03/18/2022 5:41 AM [facility] Calcium 8.8 8.4 - 10.2 mg/dL 03/18/2022 5:41 AM [facility] Phosphorus 3.8 2.8 - 5.1 mg/dL 03/18/2022 5:41 AM [facility] Anion Gap 16 8 - 18 03/18/2022 5:41 AM [facility] BUN/Creatinine Ratio 14 7 - 23 03/18/2022 5:41 AM [facility] Osmolality Calculated 292 270 - 300 mOsm/kg 03/18/2022 5:41 AM [facility] eGFR by CKD-EPI >90 >=90 mL/min/1.7 3 m2 03/18/2022 5:41 AM [facility] Blood BLOOD SPECIMEN / Unknown Lab Venipuncture / Unknown 03/18/2022 4:19 AM CDT 03/18/2022 5:12 AM CDT Jay King PA-C LAB - CHEMISTRY ORD ERABLES [facility] [address] [place] [address], [facility] [phone] * (ABNORMAL) CBC W/O DIFFERENTIAL (03/18/2022 4:19 AM CDT) WBC 9.7 3.5 - 10.5 10? 3 /uL 03/18/2022 5:41 AM [facility] RBC 4.47 4.30 - 5.70 10? 6 /uL 03/18/2022 5:41 AM [facility] Hemoglobin 11.8(L) 12.0 - 17.6 g/dL 03/18/2022 5:41 AM [facility] Hematocrit 36.8 35.2 - 51.7 % 03/18/2022 5:41 AM [facility] MCV 82.3 80.7 - 98.3 fL 03/18/2022 5:41 AM [facility] MCH 26.4(L) 26.7 - 34.0 pg 03/18/2022 5:41 AM [facility] MCHC 32.1 30.8 - 35.9 g/dL 03/18/2022 5:41 AM [facility] RDW-SD 40.2 36.0 - 50.0 fL 03/18/2022 5:41 AM [facility] RDW-CV 13.6 11.2 - 14.8 % 03/18/2022 5:41 AM [facility] Platelet Count 300 150 - 400 10? 3 /uL 03/18/2022 5:41 AM [facility] MPV 10.4 9.4 - 12.9 fL 03/18/2022 5:41 AM [facility] nRBC Absolute 0.00 0 10? 3 /uL 03/18/2022 5:41 AM [facility] nRBC Auto 0.0 0 /100 WBC 03/18/2022 5:41 AM [facility] Blood BLOOD SPECIMEN / Unknown Lab Venipuncture / Unknown 03/18/2022 4:19 AM CDT 03/18/2022 5:12 AM CDT Jay King PA-C LAB - HEMATOLOGY OR DERABLES [address] [address], [facility] [phone] * GLUCOSE - POINT OF CARE (03/17/2022 10:20 PM CDT) [facility] Glucose WB/POC 89 70 - 115 mg/dL 03/17/2022 11:55 PM T [facility] Specimen Type Arterial 03/17/2022 11:55 PM T [facility] Blood BLOOD SPECIMEN / Unknown 03/17/2022 10:20 PM CDT 03/17/2022 11:55 PM CDT Hector Funk DO LAB - POINT OF CARE ORDERABLES [address] [address], [place] [phone] * GLUCOSE - POINT OF CARE (03/17/2022 6:16 PM CDT) Glucose WB/POC 87 70 - 115 mg/dL 03/17/2022 6:21 PM CDT [facility] Specimen Type Cap Fingerstick 2021 6:21 PM CDT [facility] Blood BLOOD SPECIMEN / Unknown 03/17/2022 6:16 PM CDT 03/17/2022 6:21 PM CDT Ananda Shepherd MD LAB - POINT OF CARE ORDERABLES [facility] [address] [place] [phone], [facility] [phone] * URINALYSIS REFLEX TO MICROSCOPIC NO CULTURE (03/17/2022 5:03 PM CDT) Color UA Yellow Straw, Yellow 03/17/2022 5:14 PM CDT [facility] Clarity UA Clear Clear 03/17/2022 5:14 PM T [facility] Specific [place] UA 1.024 1.005 - 1.030 03/17/2022 5:14 PM [facility] pH UA 7.0 5.0 - 8.0 pH 03/17/2022 5:14 PM T [facility] Protein UA Negative Negative 03/17/2022 5:14 PM T [facility] Glucose UA Negative Negative 03/17/2022 5:14 PM T [facility] Ketone UA Negative Negative 03/17/2022 5:14 PM T [facility] Bilirubin UA Negative Negative 03/17/2022 5:14 PM [facility] Blood UA Negative Negative 03/17/2022 5:14 PM [facility] Nitrite UA Negative Negative 03/17/2022 5:14 PM [facility] Leukocyte Esterase Negative Negative 03/17/2022 5:14 PM T [facility] Urobilinogen UA Negative Negative mg/dL 03/17/2022 5:14 PM T [facility] RBC UA 0-2 None Seen, 0-2, 3-5 /HPF 03/17/2022 5:14 PM CDT [facility] WBC UA 0-5 None Seen, 0-5 /HPF 03/17/2022 5:14 PM CDT [facility] Squamous Epithelial Cells UA None Seen None Seen, 0-2, 3-5 /HPF 03/17/2022 5:14 PM CDT [facility] Urine URINE SPECIMEN OBTAINED BY CLEAN CATCH PROCEDURE / Unknown Collection / Unknown 03/17/2022 5:03 PM CDT 03/17/2022 5:07 PM CDT Narrative [facility] - 03/17/2022 5:14 PM CDT Eriberto Plascencia PA-C LAB - URIN ALYSIS ORDERABLES [facility] [address] [place] [phone], [facility] [phone] * XR ABDOMEN KUB PORTABLE (03/17/2022 3:16 PM CDT) Anatomical Region Laterality Modality Abdomen Radiographic Merissa ging 03/17/2022 3:19 PM CDT Narrative 03/17/2022 3:26 PM CDT PROCEDURE: ??XR ABDOMEN KUB PORTABLE, DATE/TIME OF EXAM: ??03/17/2022 3:17 PM, LOCATION ??[facility] INDICATION: R10.13: Abdominal pain, epigastric R11.14: Bilious vomiting with nausea ADDITIONAL CLINICAL INFORMATION: Ordering Provider Reason For Exam: ??NG tube placement confirmation - will need new KUB per radiologist. Please capture upper abdomen and at least half the thorax. Thanks. COMPARISON: X-ray abdomen from 03/17/2022 FINDINGS/IMPRESSION: Enteric tube courses below the diaphragm with the distal tip superimposing the expected location of the stomach. Report dictated by Ananda Ashton DO (consultant [employer]. vice president [employer] (ex )). IAndrea have personally reviewed and interpreted this examination/study. > Interpreting Provider: Andrea Guillory on 03/17/2022 3:26 PM Procedure Note Andrea Guillory MD - 03/17/2022 PROCEDURE: XR ABDOMEN KUB PORTABLE, DATE/TIME OF EXAM: 03/17/2022 3:17PM, LOCATION [facility] INDICATION: R10.13: Abdominal pain, epigastric R11.14: Bilious vomiting with nausea ADDITIONAL CLINICAL INFORMATION: Ordering Provider Reason For Exam: NG tube placement confirmation -will need new KUB per radiologist. Please capture upper abdomen and at least half the thorax. Thanks. COMPARISON: X-ray abdomen from 03/17/2022 FINDINGS/IMPRESSION: Enteric tube courses below the diaphragm with the distal tipsuperimposing the expected location of the stomach. Report dictated by Ananda Ashton DO (consultant [employer]. vice president [employer] (ex )). Andrea Zhou have personally reviewed and interpreted this examination/study. > Interpreting Provider: Andrea Guillory on 03/17/2022 3:26 PM Jay King PA-C DIAGNOSTIC IMAGING ORDERABLES * XR ABDOMEN KUB PORTABLE (03/17/2022 1:24 PM CDT) Anatomical Region Laterality Modality Abdomen Radiographic Merissa ging 03/17/2022 1:2 8 PM CDT Narrative 03/17/2022 3:07 PM CDT PROCEDURE: ??XR ABDOMEN KUB PORTABLE, DATE/TIME OF EXAM: ??03/17/2022 1:24 PM, LOCATION ??[facility] INDICATION: R10.13: Abdominal pain, epigastric ADDITIONAL CLINICAL INFORMATION: Ordering Provider Reason For Exam: ??Confirm NG tube placement The tip and side port of an enteric tube terminates in stomach. Andrea Zhou have personally reviewed and interpreted this examination/study. > Interpreting Provider: Andrea Guillory on 03/17/2022 3:07 PM Procedure Note Andrea Guillory MD - 03/17/2022 PROCEDURE: XR ABDOMEN KUB PORTABLE, DATE/TIME OF EXAM: 03/17/2022 1:24PM, LOCATION [facility] INDICATION: R10.13: Abdominal pain, epigastric ADDITIONAL CLINICAL INFORMATION: Ordering Provider Reason For Exam: Confirm NG tube placement The tip and side port of an enteric tube terminates in stomach. Andrea Zhou have personally reviewed and interpreted this examination/study. > Interpreting Provider: Andrea Guillory on 03/17/2022 3:07 PM Jay King PA-C DIAGNOSTIC IMAGING ORDERABLES * LACTIC ACID BLOOD REFLEX TO REPEAT (03/17/2022 8:33 AM CDT) Lactic Acid-Stat 1.6 <=2.0 mmol/L 03/17/2022 9:04 AM CDT [facility] Blood BLOOD SPECIMEN / Unknown Venipuncture / Unknown 03/17/2022 8:33 AM CDT 03/17/2022 8:38 AM CDT Carolyn Houston MD LAB - CHEMISTRY [place] Performing Organization Address City/State/[facility] Co de Phone Number [facility] [address] [place] [phone], [facility] [phone] * XR ABDOMEN KUB (03/17/2022 8:27 AM CDT) Anatomical Region Laterality Modality Abdomen Radiographic Merissa ging 03/17/2022 8:26 AM CDT Impressions 03/17/2022 8:57 AM CDT IMPRESSION: Enteric tube terminates in the stomach. IGinette MD have personally reviewed and interpreted this examination/study. > Interpreting Provider: Ginette Wellington MD on 03/17/2022 8:57 AM Narrative 03/17/2022 8:57 AM CDT PROCEDURE: ??XR ABDOMEN KUB, DATE/TIME OF EXAM: ??03/17/2022 8:14 AM, LOCATION [facility] INDICATION: K56.600: Partial small bowel obstruction (CMS/HCC) R11.14: Bilious vomiting with nausea ADDITIONAL CLINICAL INFORMATION: Ordering Provider Reason For Exam: ??post-NGT placement Procedure Note Ginette Wellington MD - 03/17/2022 PROCEDURE: XR ABDOMEN KUB, DATE/TIME OF EXAM: 03/17/2022 8:14 AM,LOCATION [facility] INDICATION: K56.600: Partial small bowel obstruction (CMS/HCC) R11.14: Bilious vomiting with nausea ADDITIONAL CLINICAL INFORMATION: Ordering Provider Reason For Exam: post-NGT placement IMPRESSION: Enteric tube terminates in the stomach. I, Ginette Wellington MD have personally reviewed and interpreted this examination/study. > Interpreting Provider: Ginette Wellington MD on 03/17/2022 8:57 AM Ananda Shepherd MD DIAGNOSTIC IMAGING O RDERABLES * CULTURE BLOOD (03/17/2022 5:27 AM CDT) Culture No growth day 5 YAN 03/22/2022 7:30 AM [employer]AY D[employer]ER OPERATOR [facility] MICROBIOLOGY Blood PERIPHERAL BLOOD / Unknown Venipuncture / Unknown 03/17/2022 5:27 AM CDT 03/17/2022 5:32 AM CDT Carolyn Houston MD LAB - MICROBIOLOGY O RDERABLES [facility] MICROBIOLOG[facility] [address] [place] [phone] * PROCALCITONIN LEVEL (03/17/2022 5:22 AM CDT) PROCALCITONIN <0.02 <=0.10 ng/mL 03/17/2022 6:42 AM CDT [facility] Blood BLOOD SPECIMEN / Unknown Venipuncture / Unknown 03/17/2022 5:22 AM CDT 03/17/2022 5:47 AM CDT Narrative [facility] - 03/17/2022 6:42 AM CDT The change [...] Change in Procalcitonin Calculator is available at [email or web address] ?? If clinical picture has not improved and PCT remains high, reevaluate and consider treatment failure or other causes. Carolyn Houston MD LAB - CHEMISTRY [place] Performing Organization Address [facility] Co de Phone Number [address] [phone], [place] [phone] * CULTURE BLOOD (03/17/2022 5:22 AM CDT) Culture No growth day 5 YAN 03/22/2022 7:30 AM SPRAY DRIER OPERATOR [facility] MICROBIOLOGY Blood PERIPHERAL BLOOD / Unknown Venipuncture / Unknown 03/17/2022 5:22 AM CDT 03/17/2022 5:32 AM CDT Carolyn Houston MD LAB - MICROBIOLOGY O RDERABLES Performing Organization Address City/[facility] Co de Phone Number [facility] [employer] MICROBIOLOGY [address] [place] [address], [facility] [phone] * CT ABDOMEN PELVIS W CONTRAST (03/17/2022 4:31 AM CDT) Anatomical Region Laterality Modality Abdomen, Pelvis Computed Tomogra phy 03/17/2022 4:35 AM CDT Impressions 03/17/2022 9:36 AM CDT Impression: 1.Mild small bowel dilation, predominantly in the right abdomen, gradually tapering down in the distal ileum. There is no definitive transition point, likely representing partial bowel obstruction versus ileus. No pneumatosis. 2.There is mild mesenteric stranding in the lower abdomen around the anastomosis, which may represent postoperative changes or reactive changes. These findings were discussed in detail with the patient's care provider, Thais (FERNANDO) by Dr. Fitch via telephone at 5:00 PM on 03/17/2022 with readback comprehension and verification. > Dictated by Gwen Fitch MD (consultant luxury and auto. vice president [employer] (ex )). I, Andrea Guillory have personally reviewed and interpreted this examination/study. 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 evaluate SBO COMPARISON: CT abdomen pelvis with contrast dated 09/15/2021 TECHNIQUE: CT of the abdomen and pelvis was performed following the uneventful administration of 100 mL of Isovue 370 intravenous contrast according to standard protocol. Findings: Lower Chest: The visible lung bases are clear. The heart size is normal without pericardial effusion. Liver: The liver enhances homogenously. The portal vein is patent. ?? Gallbladder and Bile Ducts: The gallbladder is nondistended. The intrahepatic and extrahepatic bile ducts are nondilated. Spleen: Normal. Pancreas: Normal. ?? Adrenals: Normal in morphology without mass lesion. Kidneys: The kidneys enhance symmetrically. There is no evidence of renal calculus or hydronephrosis. Gastrointestinal: The distal esophagus and stomach appear normal. Suture line in the small bowel loop in the midabdomen with focal bowel dilatation measuring up to 4.8 cm proximal to the small bowel anastomosis (series 4 image 52), favored to represent expected postoperative changes. There is mild diffuse dilatation of the small bowel loops in the right abdomen, measuring up to 3.3 cm (series 3 image 116), gradually tapering down in the distal ileum, without a definitive transition point. Ventrally oriented small bowel loops likely related to adhesions. No bowel wall thickening/hypoenhancement or pneumatosis. The colon and proximal small bowel are nondilated. The cecum is identified in the left mid abdomen. The appendix is not identified. There is no inflammatory changes around the cecum. Mesentery/Peritoneum/Retroperitoneum: Multiple prominent mesenteric lymph nodes and 1.3 cm portacaval lymph node (series 3 image 52) are likely reactive. There is no free intraperitoneal air or fluid. There is mild mesenteric stranding in the lower abdomen (series 4 image 60). Bladder: Normal. Reproductive Organs: The prostate is normal in size with punctate calcification. Vasculature: No vascular abnormality is present. Bones: No suspicious lytic or blastic lesions. The visible osseous structures are intact. Soft tissues: Normal. Procedure Note Andrea Guillory MD - 03/17/2022 EXAMINATION: CT ABDOMEN PELVIS W CONTRAST DATE/TIME OF EXAM: 03/17/2022 4:33 AM, LOCATION [facility] HISTORY: R10.13: Abdominal pain, epigastric 26M with h/o arthrogryposis, gastroschisis, multiple small bowel obstructions s/p small bowelresection x 2 in childhood and on 09/17/2021 . evaluate SBO COMPARISON: CT abdomen pelvis with contrast dated 09/15/2021 TECHNIQUE: CT of the abdomen and pelvis was performed following the uneventful administration of 100 mL of Isovue 370 intravenous contrast according to standard protocol. Findings: Lower Chest: The visible lung bases are clear. The heart size is normal without pericardial effusion. Liver: The liver enhances homogenously. The portal vein is patent. Gallbladder and Bile Ducts: The gallbladder is nondistended. The intrahepatic and extrahepatic bile ducts are nondilated. Spleen: Normal. Pancreas: Normal. Adrenals: Normal in morphology without mass lesion. Kidneys: The kidneys enhance symmetrically. There is no evidence of renalcalculus or hydronephrosis. Gastrointestinal: The distal esophagus and stomach appear normal. Suture line in the small bowel loop in the midabdomen with focal bowel dilatation measuring up to 4.8 cm proximal to the small bowel anastomosis (series 4 image 52),favored to represent expected postoperative changes. There is mild diffuse dilatation of the small bowel loops in the right abdomen, measuring upto 3.3 cm (series 3 image 116), gradually tapering down in the distalileum, without a definitive transition point. Ventrally oriented small bowelloops likely related to adhesions. No bowel wall thickening/hypoenhancement or pneumatosis. The colon and proximal small bowel are nondilated. Thececum is identified in the left mid abdomen. The appendix is not identified. There is no inflammatory changes around the cecum. Mesentery/Peritoneum/Retroperitoneum: Multiple prominent mesenteric lymph nodes and 1.3 cm portacaval lymphnode (series 3 image 52) are likely reactive. There is no freeintraperitoneal air or fluid. There is mild mesenteric stranding in the lower abdomen (series 4 image 60). Bladder: Normal. Reproductive Organs: The prostate is normal in size with punctate calcification. Vasculature: No vascular abnormality is present. Bones: No suspicious lytic or blastic lesions. The visible osseous structuresare intact. Soft tissues: Normal. Impression: 1.Mild small bowel dilation, predominantly in the right abdomen,gradually tapering down in the distal ileum. There is no definitive transitionpoint, likely representing partial bowel obstruction versus ileus. Nopneumatosis. 2.There is mild mesenteric stranding in the lower abdomen around the anastomosis, which may represent postoperative changes or reactivechanges. These findings were discussed in detail with the patient's careprovider, Ms. Plascencia (FERNANDO) by Dr. Fitch via telephone at 5:00 PM on 03/17/2022 with readback comprehension and verification. > Dictated by Gwen Fitch MD (consultant luxury and auto. vice president [employer] (ex )). I, Andrea Guillory have personally reviewed and interpreted this examination/study. > Interpreting Provider: Andrea Guillory on 03/17/2022 9:36 AM Eriberto Plascencia PA-C CT ORDERAB LES * CREATININE - POCT INTERFACED (03/17/2022 4:16 AM CDT) Creatinine POCT 0.89 0.30 - 1.30 mg/dL 03/17/2022 4:28 AM CDT [facility] eGFR >90 >90 mL/min/1.7 3 m2 03/17/2022 4:28 AM CDT [facility] Blood BLOOD SPECIMEN / Unknown 03/17/2022 4:16 AM CDT 03/17/2022 4:27 AM CDT Provider Unknown LAB - POINT OF CARE ORDERABLES [facility] [address] [place] [id number], [place] [phone] * LIPASE BLOOD (03/17/2022 3:41 AM CDT) Lipase 26 8 - 78 U/L 03/17/2022 4:19 AM CDT [facility] Blood BLOOD SPECIMEN / Unknown Venipuncture / Unknown 03/17/2022 3:41 AM CDT 03/17/2022 3:51 AM CDT Eriberto Plascencia PA-C LAB - CHEM ISTRY ORDERABLES Performing Organization Address [facility]/ZIP Co de Phone Number [address] [address], [place] [phone] * (ABNORMAL) LACTIC ACID BLOOD (03/17/2022 3:41 AM CDT) Pathologist [facility] Lactic Acid-Stat 3.0(H) <=2.0 mmol/L 03/17/2022 4:13 AM CDT [facility] Blood BLOOD SPECIMEN / Unknown Venipuncture / Unknown 03/17/2022 3:41 AM CDT 03/17/2022 3:51 AM CDT Eriberto Plascencia PA-C LAB - CHEM ISTRY ORDERABLES [address] [address], [place] [phone] * (ABNORMAL) CBC W AUTO DIFFERENTIAL (03/17/2022 3:41 AM CDT) WBC 24.2(H) 3.5 - 10.5 10? 3 /uL 03/17/2022 3:55 AM CDT [facility] RBC 5.28 4.30 - 5.70 10? 6 /uL 03/17/2022 3:55 AM [facility] Hemoglobin 13.7 12.0 - 17.6 g/dL 03/17/2022 3:55 AM [facility] Hematocrit 43.2 35.2 - 51.7 % 03/17/2022 3:55 AM [facility] MCV 81.8 80.7 - 98.3 fL 03/17/2022 3:55 AM [facility] MCH 25.9(L) 26.7 - 34.0 pg 03/17/2022 3:55 AM [facility] MCHC 31.7 30.8 - 35.9 g/dL 03/17/2022 3:55 AM [facility] RDW-SD 39.9 36.0 - 50.0 fL 03/17/2022 3:55 AM [facility] RDW-CV 13.5 11.2 - 14.8 % 03/17/2022 3:55 AM [facility] Platelet Count 484(H) 150 - 400 10? 3 /uL 03/17/2022 3:55 AM [facility] MPV 10.1 9.4 - 12.9 fL 03/17/2022 3:55 AM [facility] nRBC Absolute 0.00 0 10? 3 /uL 03/17/2022 3:55 AM [facility] nRBC Auto 0.0 0 /100 WBC 03/17/2022 3:55 AM [facility] Neutrophils % 85.0(H) 35.0 - 70.0 % 03/17/2022 3:55 AM [facility] Lymphocytes % 10.1(L) 20.0 - 43.0 % 03/17/2022 3:55 AM [facility] Monocytes % 3.8(L) 5.0 - 13.0 % 03/17/2022 3:55 AM [facility] Eosinophils % 0.1 0.0 - 6.0 % 03/17/2022 3:55 AM [facility] Basophil % 0.3 0.0 - 2.0 % 03/17/2022 3:55 AM CDT [facility] Neutrophils Absolute 20.57(H) 1.60 - 7.00 10? 3 /uL 03/17/2022 3:55 AM T [facility] Lymphocyte Absolute 2.44 1.10 - 3.90 10? 3 /uL 03/17/2022 3:55 AM T [facility] Monocytes Absolute 0.91 0.26 - 1.07 10? 3 /uL 03/17/2022 3:55 AM T [facility] Eosinophils Absolute 0.02 0.00 - 0.47 10? 3 /uL 03/17/2022 3:55 AM T [facility] Basophils Absolute 0.08 0.00 - 0.08 10? 3 /uL 03/17/2022 3:55 AM [facility] Immature Granulocytes % 0.7 0.0 - 1.0 % 03/17/2022 3:55 AM [facility] Immature Granulocytes Absolute 0.16 03/17/2022 3:55 AM [facility] Blood BLOOD SPECIMEN / Unknown Venipuncture / Unknown 03/17/2022 3:41 AM CDT 03/17/2022 3:51 AM CDT Eriberto Plascencia PA-C LAB - TOM TOLOGY ORDERABLES Performing Organization Address [facility]/State/[facility] Co de Phone Number [address] [address], [facility] [phone] * (ABNORMAL) COMPREHENSIVE METABOLIC PANEL (03/17/2022 3:41 AM CDT) BUN 14 7 - 26 mg/dL 03/17/2022 4:19 AM [facility] Creatinine 0.83 0.71 - 1.16 mg/dL 03/17/2022 4:19 AM [facility] Sodium 138 136 - 145 mmol/L 03/17/2022 4:19 AM [facility] Potassium 4.5 3.5 - 4.5 mmol/L 03/17/2022 4:19 AM [facility] Chloride 105 98 - 107 mmol/L 03/17/2022 4:19 AM [facility] CO2 20(L) 22 - 29 mmol/L 03/17/2022 4:19 AM [facility] Glucose 158(H) 70 - 115 mg/dL 03/17/2022 4:19 AM [facility] Calcium 10.1 8.4 - 10.2 mg/dL 03/17/2022 4:19 AM [facility] Protein Total 8.2 6.0 - 8.3 g/dL 03/17/2022 4:19 AM [facility] Albumin 4.1 3.4 - 5.0 g/dL 03/17/2022 4:19 AM [facility] Bilirubin Total 1.0 0.2 - 1.2 mg/dL 03/17/2022 4:19 AM [facility] Alkaline Phosphatase 113 40 - 150 U/L 03/17/2022 4:19 AM [facility] ALT 40 5 - 55 U/L 03/17/2022 4:19 AM [facility] AST 17 5 - 34 U/L 03/17/2022 4:19 AM [facility] Anion Gap 18 8 - 18 03/17/2022 4:19 AM [facility] BUN/Creatinine Ratio 17 7 - 23 03/17/2022 4:19 AM [facility] Osmolality Calculated 290 270 - 300 mOsm/kg 03/17/2022 4:19 AM [facility] Albumin/Globulin Ratio 1.0(L) 1.1 - 2.3 03/17/2022 4:19 AM [facility] eGFR by CKD-EPI >90 >=90 mL/min/1.7 3 m2 03/17/2022 4:19 AM [facility] Blood BLOOD SPECIMEN / Unknown Venipuncture / Unknown 03/17/2022 3:41 AM T 03/17/2022 3:51 AM [facility] Eriberto Plascencia PA-C LAB - CHEM ISTRY ORDERABLES [facility] [address] [place] [address], [facility] [phone] documented in this encounter Visit Diagnoses Diagnosis Abdominal pain, epigastric Partial small bowel obstruction (HCC) Unspecified intestinal obstruction Bilious vomiting with nausea Partial small bowel obstruction (HCC) Unspecified intestinal obstruction documented in this encounter Administered Medications Inactive Administered Medications - up to 3 most recent administrations Medication Order MAR Action Action Date Dose Rate Site 0.9% NaCl infusion at 100 mL/hr, Intravenous, CONTINUOUS, Starting on Tue03/17/22 at 0800, Until Tue03/17/22 at 1259 $ New Bag/Syringe 03/17/2022 8:00 AM CDT 100 mL/hr 0.9% NaCl infusion at 100 mL/hr, Intravenous, CONTINUOUS, Starting on Tue03/17/22 at 1700, Until Tue03/18/22 at 1000 $ New Bag/Syringe 03/18/2022 8:46 AM CDT 100 mL/hr $ New Bag/Syringe 03/17/2022 10:41 PM CDT 100 m L/hr $ New Bag/Syringe 03/17/2022 4:59 PM CDT 100 mL /hr 0.9% NaCl infusion at 100 mL/hr, Intravenous, CONTINUOUS, Starting on Tue03/18/22 at 1230, Until Tue03/21/22 at 0915 $ New Bag/Syringe 03/20/2022 4:46 AM CDT 100 mL/hr Current Rate 03/19/2022 4:23 PM CDT 100 mL/hr $ New Bag/Syringe 03/19/2022 3:40 PM CDT 100 mL /hr 0.9% NaCl injection 1-10 mL 1-10 mL, Intracatheter, PRN, Other, peripheral line flush, Starting on Tue03/17/22 at 0218, Until Tue03/21/22 at 1215, Flush peripheral IV catheter with 1-10 mL of normal saline before and after medications and prn to clear blood from the line or to verify patency. $ Given 03/18/2022 11:47 AM CDT 10 mL 0.9% NaCl injection 3 mL 3 mL, Intracatheter, EVERY 8 HOURS, First dose on Tue03/17/22 at 0600, Until Discontinued, Flush peripheral IV catheter with 3 mL of normal saline every 8 hours. $ Given 03/21/2022 6:44 AM SPRAY DRIER OPERATOR 3 mL $ Given 03/20/2022 8:33 PM CDT 3 mL $ Given 03/20/2022 12:58 PM CDT 3 mL acetaminophen (Ofirmev) injection 1,000 mg 1,000 mg, at 400 mL/hr, Intravenous, EVERY 8 HOURS PRN, Mild Pain, Moderate Pain, 3 doses, Starting on Tue03/17/22 at 1307, Until Tue03/19/22 at 0912, See Retidocedex for renal dosing guidelines. Patient preference for lesser PRN pain meds may be honored when the patient requests a less strong medication, a lower dose, or a less intrusive route of administration when the lesser drug, dose and route have been ordered for the patient. This patient request must be documented in the MAR. $ New Bag/Syringe 03/18/2022 5:22 PM CDT 1,000 mg 400 mL/hr $ New Bag/Syringe 03/18/2022 10:51 AM CDT 1,000 mg 400 m L/hr acetaminophen (Tylenol) tablet 1,000 mg 1,000 mg, Oral, 3 TIMES DAILY, 9 doses, First dose on Tue03/19/22 at 0915, Last dose on Tue03/22/22 at 0200, Patient preference for lesser PRN pain meds may be honored when the patient requests a less strong medication, a lower dose, or a less intrusive route of administration when the lesser drug, dose and route have been ordered for the patient. This patient request must be documented in the MAR. $ Given 03/21/2022 10:35 AM SPRAY DRIER OPERATOR 1,000 mg $ Given 03/20/2022 5:23 PM CDT 1,000 mg $ Given 03/20/2022 9:51 AM CDT 1,000 mg cefTRIAXone (Rocephin) 2,000 mg in 0.9% NaCl IV 50 mL IVPB 2,000 mg (2 g), at 100 mL/hr, Intravenous, EVERY 24 HOURS, First dose on Tue03/17/22 at 0500, Until Discontinued, Ceftriaxone can cause precipitation when administered with calcium-containing fluids, including LR. Flush lines with a compatible fluid, such as D5W or NS before and after ceftriaxone dose. Admin through separate lumens is acceptable. , Indication for anti-infective therapy: Suspected infection, Site of anti-infective therapy: Intra-abdominal $ Bolus New Bag 03/17/2022 5:23 AM CDT 2,000 mg 100 mL/hr docusate sodium (Colace) capsule 100 mg 100 mg, Oral, 2 TIMES DAILY, First dose on Tue03/20/22 at 1130, Until Discontinued $ Given 03/21/2022 8:35 AM SPRAY DRIER OPERATOR 100 mg $ Given 03/20/2022 8:33 PM CDT 100 mg $ Given 03/20/2022 12:05 PM CDT 100 mg enoxaparin (Lovenox) injection 40 mg 40 mg, Subcutaneous, DAILY, First dose on Tue03/19/22 at 0900, Until Discontinued, (for prefilled syringes) do not expel air bubble from the syringe prior to the injection Remind Patient to not rub injection site. Could cause hematoma. $ Given 03/21/2022 8:35 AM SPRAY DRIER OPERATOR 40 mg Ab dominal Tissue $ Given 03/20/2022 9:01 AM CDT 40 mg Ab d Right Lower Quadrant $ Given 03/19/2022 8:34 AM CDT 40 mg Ab d Right Lower Quadrant famotidine (Pepcid) injection 20 mg 20 mg, Intravenous, NOW, 1 dose, On Tue03/17/22 at 0230, Dilute with 0.9% NaCl, D5W solution, or SWI to a volume of 5 to 10 mL and administer over at least 2 minutes. $ Given 03/17/2022 4:02 AM CDT 20 mg heparin injection 5,000 Units 5,000 Units, Subcutaneous, 3 TIMES DAILY, First dose on Tue03/17/22 at 1400, Until Discontinued $ Given 03/18/2022 8:03 AM CDT 5,000 Units Abdominal Tissue $ Given 03/17/2022 10:17 PM CDT 5,000 Units Abd Left Lower Quadrant HYDROmorphone (Dilaudid) injection 0.2 mg 0.2 mg, Intravenous, ONCE PRN, Severe Pain, Moderate Pain, 1 dose, Starting on Tue03/17/22 at 0733, Until Tue03/17/22 at 0744, Patient preference for lesser PRN pain meds may be honored when the patient requests a less strong medication, a lower dose, or a less intrusive route of administration when the lesser drug, dose and route have been ordered for the patient. This patient request must be documented in the MAR. $ Given 03/17/2022 7:44 AM CDT 0.2 mg HYDROmorphone (Dilaudid) injection 0.2 mg 0.2 mg, Intravenous, EVERY 4 HOURS PRN, Severe Pain, Starting on Tue03/17/22 at 1301, Until Tue03/17/22 at 1634, Patient preference for lesser PRN pain meds may be honored when the patient requests a less strong medication, a lower dose, or a less intrusive route of administration when the lesser drug, dose and route have been ordered for the patient. This patient request must be documented in the MAR. $ Given 03/17/2022 2:05 PM CDT 0.2 m g HYDROmorphone (Dilaudid) injection 0.5 mg 0.5 mg, Intravenous, NOW, 1 dose, On Tue03/17/22 at 1030, Patient preference for lesser PRN pain meds may be honored when the patient requests a less strong medication, a lower dose, or a less intrusive route of administration when the lesser drug, dose and route have been ordered for the patient. This patient request must be documented in the MAR. $ Given 03/17/2022 10:44 AM CDT 0.5 mg HYDROmorphone (Dilaudid) injection 0.5 mg 0.5 mg, Intravenous, EVERY 4 HOURS PRN, Severe Pain, Starting on Tue03/17/22 at 1633, Until Tue03/19/22 at 0912, Patient preference for lesser PRN pain meds may be honored when the patient requests a less strong medication, a lower dose, or a less intrusive route of administration when the lesser drug, dose and route have been ordered for the patient. This patient request must be documented in the MAR. $ Given 03/19/2022 5:33 AM CDT 0.5 m g $ Given 03/18/2022 11:36 PM CDT 0.5 mg $ Given 03/18/2022 7:29 PM CDT 0.5 mg HYDROmorphone (Dilaudid) injection 0.5 mg 0.5 mg, Intravenous, EVERY 4 HOURS PRN, Severe Pain, 2nd line after po option given or if unavailable, Starting on Tue03/19/22 at 0911, Until Tue03/21/22 at 1215, Patient preference for lesser PRN pain meds may be honored when the patient requests a less strong medication, a lower dose, or a less intrusive route of administration when the lesser drug, dose and route have been ordered for the patient. This patient request must be documented in the MAR. $ Given 03/19/2022 11:15 PM CDT 0.5 mg insulin lispro (HumaLOG;ADMelog) 100 UNIT/ML pen 0-6 Units 0-6 Units, Subcutaneous, 3 TIMES DAILY WITH MEALS, First dose on Tue03/17/22 at 1800, Until Discontinued, DO NOT HOLD CORRECTION BOLUS EVEN IF PATIENT IS NPO. If patient is eating meals and has orders for Mealtime Insulin Bolus, combine and give at the same time. BEDSIDE GLUCOSE MUST BE PERFORMED AND DOCUMENTED WITHIN 30-60 MINUTES OF CORRECTION INSULIN ADMINISTRATION. BG (mg/dL) LESS than 70 = follow Hypoglycemic guidelines 150-200 = give 1 unit 201-250 = give 2 units, 251-300 = give 3 units 301-350 = give 4 units 351-400 = give 5 units and notify physician GREATER than 400 = give 6 units and notify physician iopamidol (Isovue 370) contrast ADS Med 1 dose, Starting on Tue03/17/22 at 0403, Until Tue03/17/22 at 0417, Created by cabinet override $ Given - Contrast 03/17/2022 4:17 AM CDT 100 mL ondansetron (Zofran) injection 4 mg 4 mg, Intravenous, NOW, 1 dose, On Tue03/17/22 at 0230, Administer over 2 to 5 minutes. $ Given 03/17/2022 4:02 AM CDT 4 mg oxyCODONE (immediate release) (Roxicodone) tablet 5 mg 5 mg, Oral, EVERY 6 HOURS PRN, Severe Pain, Starting on Tue03/19/22 at 0911, Until Tue03/19/22 at 1553, Patient preference for lesser PRN pain meds may be honored when the patient requests a less strong medication, a lower dose, or a less intrusive route of administration when the lesser drug, dose and route have been ordered for the patient. This patient request must be documented in the MAR. $ Given 03/19/2022 10:30 AM CDT 5 mg oxyCODONE (immediate release) (Roxicodone) tablet 5 mg 5 mg, Oral, EVERY 4 HOURS PRN, Severe Pain, Starting on Tue03/19/22 at 1600, Until 03/21/22 at 1215, Patient preference for lesser PRN pain meds may be honored when the patient requests a less strong medication, a lower dose, or a less intrusive route of administration when the lesser drug, dose and route have been ordered for the patient. This patient request must be documented in the MAR. $ Given 03/20/2022 5:23 PM CDT 5 mg $ Given 03/20/2022 12:57 PM CDT 5 mg $ Given 03/20/2022 9:02 AM CDT 5 mg phenol 1.4 % liquid 1 spray 1 spray, Mouth/Throat, EVERY 1 HOUR PRN, Sore Throat, 6 doses, Starting on Tue03/17/22 at 1024, Until 03/21/22 at 1215 $ Given 03/17/2022 10:45 AM CDT 1 spray polyethylene glycol 3350 (Miralax) packet 17 g 17 g, Oral, DAILY, First dose on 03/20/22 at 1130, Until Discontinued, Mix in 8 ounces of water, juice, soda, coffee or tea prior to administration $ Given 03/21/2022 8:35 AM SPRAY DRIER OPERATOR 17 g $ Given 03/20/2022 12:05 PM CDT 17 g polyethylene glycol 3350 (Miralax) packet 17 g 17 g, Oral, 3 TIMES DAILY (before breakfast,lunch,bedtime), First dose (after last modification) on 03/21/22 at 1130, Until Discontinued, Mix in 8 ounces of water, juice, soda, coffee or tea prior to administration prochlorperazine (Compazine) injection 5 mg 5 mg, Intravenous, EVERY 6 HOURS PRN, Nausea/Vomiting, Starting on Tue03/17/22 at 0729, Until 03/21/22 at 1215, Max intravenous rate = 5 mg/min $ Given 03/17/2022 7:43 AM CDT 5 mg documented in this encounter Active and Recently Administered Medications Due to Daylight Saving Time, this section may contain times in both CDT and SPRAY DRIER OPERATOR. Scheduled Medication Order 03/19/2022 03/20/2022 03/21/2022 0.9% NaCl injection 3 mL(Linked Group 1) 3 mL, Intracatheter, EVERY 8 HOURS, First dose on Tue03/17/22 at 0600, Until Discontinued, Flush peripheral IV catheter with 3 mL of normal saline every 8 hours. 0536 ($ Given - Provider: Lorna Parmar RN)1540 (Not Administered - Provider: Miranda Mcclendon RN - Reason: IV Currently Infusing)204 ($ Given - Provider: Lorna Parmar RN) 0445 ($ Given - Provider: Lorna Parmar RN)1258 ($ Given - Provider: Miranda Mcclendon RN)203 ($ Given - Provider: Lorna Parmar RN) 0644 ($ Given - Provider: Lorna Parmar RN) acetaminophen (Tylenol) tablet 1,000 mg 1,000 mg, Oral, 3 TIMES DAILY, 9 doses, First dose on Tue03/19/22 at 0915, Last dose on Tue03/22/22 at 0200, Patient preference for lesser PRN pain meds may be honored when the patient requests a less strong medication, a lower dose, or a less intrusive route of administration when the lesser drug, dose and route have been ordered for the patient. This patient request must be documented in the MAR. 1029 ($ Given - Provider: Miranda Mcclendon RN)1738 ($ Given - Provider: Miranda Mcclendon RN) 0443 ($ Given - Provider: Lorna Parmar RN)0951 ($ Given - Provider: Miranda Mcclendon RN)1723 ($ Given - Provider: Miranda Mcclendon RN) 0720 (Not Administered - Provider: Lorna Parmar RN - Reason: Refused-Patient)103 5 ($ Given - Provider: Karrie Melo RN) docusate sodium (Colace) capsule 100 mg 100 mg, Oral, 2 TIMES DAILY, First dose on Tue03/20/22 at 1130, Until Discontinued 1205 ($ Given - Provider: Miranda Mcclendon RN)2033 ($ Given - Provider: Lorna Parmar RN) 0835 ($ Given - Provider: Karrie Melo, BRYANT) enoxaparin (Lovenox) injection 40 mg 40 mg, Subcutaneous, DAILY, First dose on Tue03/19/22 at 0900, Until Discontinued, (for prefilled syringes) do not expel air bubble from the syringe prior to the injection Remind Patient to not rub injection site. Could cause hematoma. 0834 ($ Given - Provider: Miranda Mcclendon RN) 0901 ($ Given - Provider: Miranda Mcclendon RN) 0835 ($ Given - Provider: Karrie Melo, BRYANT) insulin lispro (HumaLOG;ADMelog) 100 UNIT/ML pen 0-6 Units 0-6 Units, Subcutaneous, 3 TIMES DAILY WITH MEALS, First dose on Tue03/17/22 at 1800, Until Discontinued, DO NOT HOLD CORRECTION BOLUS EVEN IF PATIENT IS NPO. If patient is eating meals and has orders for Mealtime Insulin Bolus, combine and give at the same time. BEDSIDE GLUCOSE MUST BE PERFORMED AND DOCUMENTED WITHIN 30-60 MINUTES OF CORRECTION INSULIN ADMINISTRATION. BG (mg/dL) LESS than 70 = follow Hypoglycemic guidelines 150-200 = give 1 unit 201-250 = give 2 units, 251-300 = give 3 units 301-350 = give 4 units 351-400 = give 5 units and notify physician GREATER than 400 = give 6 units and notify physician 0801 (Not Administered - Provider: Miranda Mcclendon RN - Reason: Per Administration Instructions)1313 (Not Administered - Provider: Miranda Mcclendon RN - Reason: Per Administration Instructions)1739 (Not Administered - Provider: Miranda Mcclendon RN - Reason: Per Administration Instructions) 0900 (Not Administered - Provider: Miranda Mcclendon RN - Reason: Per Administration Instructions)1251 (Not Administered - Provider: Miranda Mcclendon RN - Reason: Per Administration Instructions)1756 (Not Administered - Provider: Miranda Mcclendon RN - Reason: Per Administration Instructions) 0838 (Not Administered - Provider: Karrie Melo RN - Reason: Patient Condition) polyethylene glycol 3350 (Miralax) packet 17 g (CANCELED) 17 g, Oral, DAILY, First dose on Tue03/20/22 at 1130, Until Discontinued, Mix in 8 ounces of water, juice, soda, coffee or tea prior to administration 1205 ($ Given - Provider: Miranda Mcclendon RN) 0835 ($ Given - Provider: Karrie Melo, BRYANT) polyethylene glycol 3350 (Miralax) packet 17 g 17 g, Oral, 3 TIMES DAILY (before breakfast,lunch,bedtim e), First dose (after last modification) on 03/21/22 at 1130, Until Discontinued, Mix in 8 ounces of water, juice, soda, coffee or tea prior to administration Continuous Medication Order 03/19/2022 03/20/2022 03/21/2022 0.9% NaCl infusion (CANCELED) at 100 mL/hr, Intravenous, CONTINUOUS, Starting on Avani 03/18/22 at 1230, Until 03/21/22 at 0915 0532 (Current Rate - Provider: Miranda Mcclendon RN)0534 ($ New Bag/Syringe - Provider: Lorna Parmar RN)0540 (Current Rate - Provider: Miranda Mcclendon RN)1026 (Current Rate - Provider: Miranda Mcclendon RN)1540 ($ New Bag/Syringe - Provider: Miranda Mcclendon RN)1623 (Current Rate - Provider: Miranda Mcclendon RN) 0446 ($ New Bag/Syringe - Provider: Lorna Parmar RN)1058 (Stopped - Provider: Miranda Mcclendon RN) PRN Medication Order 03/19/2022 03/20/2022 03/21/2022 0.9% NaCl injection 1-10 mL(Linked Group 1) 1-10 mL, Intracatheter, PRN, Other, peripheral line flush, Starting on Tue03/17/22 at 0218, Until Tue03/21/22 at 1215, Flush peripheral IV catheter with 1-10 mL of normal saline before and after medications and prn to clear blood from the line or to verify patency. HYDROmorphone (Dilaudid) injection 0.5 mg (CANCELED) 0.5 mg, Intravenous, EVERY 4 HOURS PRN, Severe Pain, Starting on Tue03/17/22 at 1633, Until Tue03/19/22 at 0912, Patient preference for lesser PRN pain meds may be honored when the patient requests a less strong medication, a lower dose, or a less intrusive route of administration when the lesser drug, dose and route have been ordered for the patient. This patient request must be documented in the MAR. 0533 ($ Given - Provider: Lorna Parmar RN) HYDROmorphone (Dilaudid) injection 0.5 mg 0.5 mg, Intravenous, EVERY 4 HOURS PRN, Severe Pain, 2nd line after po option given or if unavailable, Starting on Tue03/19/22 at 0911, Until Tue03/21/22 at 1215, Patient preference for lesser PRN pain meds may be honored when the patient requests a less strong medication, a lower dose, or a less intrusive route of administration when the lesser drug, dose and route have been ordered for the patient. This patient request must be documented in the JUL. 2315 ($ Given - Provider: Lorna Parmar RN) oxyCODONE (immediate release) (Roxicodone) tablet 5 mg (CANCELED) 5 mg, Oral, EVERY 6 HOURS PRN, Severe Pain, Starting on Tue03/19/22 at 0911, Until Tue03/19/22 at 1553, Patient preference for lesser PRN pain meds may be honored when the patient requests a less strong medication, a lower dose, or a less intrusive route of administration when the lesser drug, dose and route have been ordered for the patient. This patient request must be documented in the JUL. 1030 ($ Given - Provider: Miranda Mcclendon RN) oxyCODONE (immediate release) (Roxicodone) tablet 5 mg 5 mg, Oral, EVERY 4 HOURS PRN, Severe Pain, Starting on Tue03/19/22 at 1600, Until Tue03/21/22 at 1215, Patient preference for lesser PRN pain meds may be honored when the patient requests a less strong medication, a lower dose, or a less intrusive route of administration when the lesser drug, dose and route have been ordered for the patient. This patient request must be documented in the JUL. 1559 ($ Given - Provider: Miranda Mcclendon RN)2042 ($ Given - Provider: Lorna Parmar RN) 0444 ($ Given - Provider: Lorna Parmar RN)0902 ($ Given - Provider: Miranda Mcclendon RN)1257 ($ Given - Provider: Miranda Mcclendon RN)1723 ($ Given - Provider: Miranda Mcclendon RN) phenol 1.4 % liquid 1 spray 1 spray, Mouth/Throat, EVERY 1 HOUR PRN, Sore Throat, 6 doses, Starting on Tue03/17/22 at 1024, Until Tue03/21/22 at 1215 prochlorperazine (Compazine) injection 5 mg 5 mg, Intravenous, EVERY 6 HOURS PRN, Nausea/Vomiting, Starting on Tue03/17/22 at 0729, Until Tue03/21/22 at 1215, Max intravenous rate = 5 mg/min Linked Groups Order Group 1: SALINE LOCK, INSERT AND MAINTAIN (CANCELED) Routine, CONTINUOUS, Starting on Tue03/17/22 at 0230, Until Specified, New collection, Task Completed: Yes And 0.9% NaCl injection 3 mLJump to med 3 mL, Intracatheter, EVERY 8 HOURS, First dose on Tue03/17/22 at 0600, Until Discontinued, Flush peripheral IV catheter with 3 mL of normal saline every 8 hours. And 0.9% NaCl injection 1-10 mLJump to med 1-10 mL, Intracatheter, PRN, Other, peripheral line flush, Starting on Tue03/17/22 at 0218, Until Tue03/21/22 at 1215, Flush peripheral IV catheter with 1-10 mL of normal saline before and after medications and prn to clear blood from the line or to verify patency. 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
--- OUTSIDE RECORDS SUMMARY | 2024-05-13 10:42 | XMS_ITS | Encounter Summary ---
Author Organization [facility] Address [address] [place] [address] Care Team Providers Care Director Of Enrollment Name Role Phone Pankaj Rosenberg MD Primary Care Provider [phone] Reason for Visit * Reason Comments Pain Abdominal PT BIBself for incre ased abd. pain x1 week. Pt last BM today, has nausea without vomiting. PMH, DM, HTN, bowel blockage(July 2022). Pt states it feels like I have a bowel obstruction again. * Auth/Cert (Routine) Specialty Diagnoses / Procedures Referred By Horacio t Referred To Contact Referral ID Status Reason Start Date Expiration Date Visits Re quested Visits Authorized [id number] 1 1 Encounter Details Date Type Department Care Team (Late st Contact Info) Description 10/07/2022 11:32 PM CDT - 10/08/2022 3:17 PM CDT Emergency [facility] EMERGENCY DEPARTMENT [address] [place] [id number] Carolyn Houston MD [address] [facility] [place] [address] Julio Irwin MD [address] [facility] [place] [address] Small bowel obstruction, partial (HCC) (Primary Dx); Abdominal pain, generalized; Nausea and vomiting, unspecified vomiting type Discharge Disposition: Home or Self Care Social [...] and heating? Not hard at all 07/27/2022 [employer] [place] [facility] [employer] [facility] - Occupational Stress [...] place to sleep or slept in a penitentiary (including now)? No 07/27/2022 Sex and Gender [...] Mass Index 36.26 10/07/2022 4:29 PM CDT documented in this encounter Functional [...] as of this encounter Discharge Summaries * Tommy Burr, - 10/08/2022 2:07 PM CDT [facility] INTERNAL MEDICINE DISCHARGE SUMMARY PATIENT: Chuck Barlow 27 year old male : 1995 ADMISSION INFORMATION ADMISSION DISCHARGE Date: 10/07/2022 Date: 10/08/[address] Devang Burgess Discharge Physician: Dr. Tommy Burr Present on Admission: ??? 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 Patient describes pain as sharp, cramping pain that waxes and wanes. He compares it as similar to his previous SBO/partial SBOs that have hospitalized him in the past. He has not had any n/v. He has been passing flatus. ?? In the ED, patient was afebrile, HD stable. Labs significant for mild leukocytosis. CT AP w/ mild dilatation of multiple small bowel loops in R abdomen proximal to anastomosis consistent with partialSBO. ACS consulted. Patient admitted to medicine for further management. Patient has had several good BMs thus far today and has had resolution of his abdominal pain. Tolerating a diet well. Appears his partial SBO is now resolved. Surgery has signed off. Will discharge home with close outpatient follow-up. Note to PCP (e.g. vitals, labs, imaging, medication start/stop, etc. to follow): Patient was recently seen for small bowel obstruction, partial. Patient was initially treated with pain management, bowel rest and fluids. Patient was started on a clear liquid diet with slow transition to regular diet. Patient had a good bowel movement with slow resolution of symptoms. We discussed lifestyle changes such as: diet, exercise, increase fiber intake, miralax/senna PRN. Patient will follow-up with our surgery team in 1-week to discuss buttermaker helper options for recurrent bouts of bowel obstruction. Significant Diagnostic Studies: Labs this admission: CBC: Recent Labs Lab 10/07/22 1734 07/28/22 0243 07/27/22 0257 WBC 12.0* 8.6 8.2 HGB 14.8 12.7 12.2 HCT 43.8 39.2 38.1 MCV 80.2* 81.2 80.5* PLTCOUNT 406* 352 342 BMP: Recent Labs Lab 10/07/22 1734 07/28/22 0243 07/27/22 0257 NA 138 144 141 POTASSIUM 4.3 3.8 3.9 CL 103 105 105 BUN 16 15 15 CREATININE 0.76 0.86 0.86 CALCIUM 10.5* 9.4 9.3 CMP: Recent Labs Lab 10/07/22 1734 07/25/22 1754 03/21/22 0606 03/18/22 0419 03/17/22 0341 AST 23 20 -- -- 17 ALT 40 55 -- -- 40 TBILI 1.0 0.8 -- -- 1.0 ALKPHOS 98 120 -- -- 113 ALB 4.5 4.2 3.6 1 4.1 PROT 8.7* 8.2 -- -- 8.2 1 = values in this interval not displayed. Coagulation: No results for input(s): PT, INR, APTT in the last 168 hours. Pertinent Microbiology: none Pending labs: none Imaging: (only include the pertinent ones) CT ABDOMEN PELVIS W CONTRAST Result Date: 10/08/2022 Impression: Mild borderline dilatation of multiple small bowel loops in the right hemiabdomen just proximal to the small bowel anastomosis, unchanged since 09/15/2021, and likely representing partial small bowel obstruction versus ileus. No definite transition point is seen. > Dictated by MD Gwendolyn (vice president of operations). I, Adriel Rosen MD have personally reviewed and interpreted this exam ination/study. > Interpreting Provider: Adriel Rosen MD on 10/08/2022 1:45 AM Discharge Exam: Vitals: BP 120/81 Pulse 78 Temp 97.7 ??F (36.5 ??C) (Skin) Resp 17 Ht 1.803 m (5' 11 ) Wt 117.9 kg (260 lb) SpO2 99% Gen: Alert, cooperative, no distress Head: Normocephalic, without obvious abnormality, atraumatic Eyes: Conjunctivae/corneas clear, EOMI Nose: Mucosa normal. No drainage. Throat: Moist mucous membranes Neck: No JVD, no carotid bruit, trachea midline Back: Symmetric, no curvature Resp: CTAB, no wheezes/crackles CV: RRR, S1S2, No M/R/G Abd: S/NT/ND, BS+, no bruits. Mild tenderness to palpation between the RUQ and RLQ. Improved from prior exam. Ext: No clubbing, cyanosis, edema; no skin changes consistent with venous stasis or arterial disease. Right elbow with anterior orientation with mild weakness compared to left. Pulses: 2+ DP B Skin: Skin color, texture, turgor normal. No rashes or lesions Neuro: No focal deficits DISCHARGE PLANNING Disposition: Home Patient Instructions: Medication List CONTINUE taking these medications amLODIPine 10 MG tablet Commonly known as: Norvasc ketoconazole 2 % shampoo Commonly known as: Nizoral lisinopril 10 MG tablet Commonly known as: Prinivil; Zestril Take 1 (one) tablet by mouth once daily for 90 days montelukast 10 MG tablet Commonly known as: Singulair omeprazole 40 MG capsule Commonly known as: PriLOSEC polyethylene glycol 3350 17 GM/SCOOP powder Commonly known as: Miralax Take 17 (seventeen) g by mouth 2 times daily pravastatin 40 MG tablet Commonly known as: Pravachol SALINE NASAL SPRAY NA senna-docusate 8.6-50 MG tablet Commonly known as: Senokot-S Take 1 (one) tablet by mouth 2 times daily for 90 days SITagliptin 25 MG tablet Commonly known as: Beryl STOP taking these medications acetaminophen 325 MG tablet Commonly known as: Tylenol ONETOUCH DELICA PLUS 33G EXTRA FINE LANCET oxyCODONE (immediate release) 5 MG tablet Commonly known as: Roxicodone Discharge Instructions DISCHARGE INSTRUCTIONS? A MESSAGE FROM YOUR DOCTORS:?? Dear Chuck Barlow,? You were admitted for suspected small bowel obstruction vs ileus and CT imaging showed no change from prior exam. You were treated with pain medications in addition to bowel rest then transitioned toa clear liquid diet. Diet was advanced slowly with improved flatus production and one bowel movement.? The surgery team recommends that you take miralax daily with follow-up visit in 1-week. ? 1. DISCHARGE MEDICATIONS:? Medication List CONTINUE taking these medications amLODIPine 10 MG tablet Commonly known as: Norvasc ketoconazole 2 % shampoo Commonly known as: Nizoral lisinopril 10 MG tablet Commonly known as: Prinivil; Zestril Take 1 (one) tablet by mouth once daily for 90 days montelukast 10 MG tablet Commonly known as: Singulair omeprazole 40 MG capsule Commonly known as: PriLOSEC polyethylene glycol 3350 17 GM/SCOOP powder Commonly known as: Miralax Take 17 (seventeen) g by mouth 2 times daily pravastatin 40 MG tablet Commonly known as: Pravachol SALINE NASAL SPRAY NA senna-docusate 8.6-50 MG tablet Commonly known as: Senokot-S Take 1 (one) tablet by mouth 2 times daily for 90 days SITagliptin 25 MG tablet Commonly known as: Januvia STOP taking these medications acetaminophen 325 MG tablet Commonly known as: Tylenol ONETOUCH DELICA PLUS 33G EXTRA FINE LANCET oxyCODONE (immediate release) 5 MG tablet Commonly known as: Roxicodone Other than the changes stated above, continue all other home medications as prescribed.? Please discuss these changes with your Primary Care Physician (or your specialist doctor).?? If you have any questions about your medications, please ask the pharmacy when you orange picker your prescription. You may also call your primary provider if you still have questions.? ? 2. FOLLOW-UP:? A) It is essential that you keep all your follow-up appointments and go to your doctors??? appointments as scheduled. If a follow-up with your primary care provider has not been scheduled, you need to schedule an appointment to follow- up on your hospitalization within 1-2 weeks. If there is a conflict, please call the clinic ahead of time and reschedule the appointment.? ? 3. ?Lifestyle Modifications? -It is important to maintain a health level of fiber in your diet which will help improve symptoms of constipation and cause you to have more regular bowel movements with normal consistency. -It is very important for your health to AVOID/STOP smoking cigarettes. Please talk to your primarycare physician if you need help quitting smoking.? -Please include plenty of fruits and vegetables in your diet and maintain a healthy diet.? -Discuss an exercise program with your primary care physician. It is recommended that most individuals should exercise for 20 minutes at least 5 times per week.? Please call your Primary Care Provider, report to the nearest emergency room or call 911 if you develop new or concerning symptoms, including, but not limited to, fever, chest pain, palpitations, numbness, worsening confusion, weakness in arms/legs, dizziness, or worsening shortness of breath.? Thank you for allowing us to participate in your care!? ? Internal Medicine Team? [facility] [address]? [place] [address]? Signed: Tommy Burr DO Internal Medicine Resident [facility] 10/08/2022 2:08 PM documented in this encounter Discharge Instructions * Discharge Instructions* Tommy Burr DO - 10/08/2022 12:52 PM CDT DISCHARGE INSTRUCTIONS? A MESSAGE FROM YOUR DOCTORS:?? Dear Chuck Barlow,? You were admitted for suspected small bowel obstruction vs ileus and CT imaging showed no change from prior exam. You were treated with pain medications in addition to bowel rest then transitioned toa clear liquid diet. Diet was advanced slowly with improved flatus production and one bowel movement.? ? DISCHARGE MEDICATIONS:? Medication List CONTINUE taking these medications amLODIPine 10 MG tablet Commonly known as: Norvasc ketoconazole 2 % shampoo Commonly known as: Nizoral lisinopril 10 MG tablet Commonly known as: Prinivil; Zestril Take 1 (one) tablet by mouth once daily for 90 days montelukast 10 MG tablet Commonly known as: Singulair omeprazole 40 MG capsule Commonly known as: PriLOSEC polyethylene glycol 3350 17 GM/SCOOP powder Commonly known as: Miralax Take 17 (seventeen) g by mouth 2 times daily pravastatin 40 MG tablet Commonly known as: Pravachol SALINE NASAL SPRAY NA senna-docusate 8.6-50 MG tablet Commonly known as: Senokot-S Take 1 (one) tablet by mouth 2 times daily for 90 days SITagliptin 25 MG tablet Commonly known as: Januvia STOP taking these medications acetaminophen 325 MG tablet Commonly known as: Tylenol ONETOUCH DELICA PLUS 33G EXTRA FINE LANCET oxyCODONE (immediate release) 5 MG tablet Commonly known as: Roxicodone Other than the changes stated above, continue all other home medications as prescribed.? Please discuss these changes with your Primary Care Physician (or your specialist doctor).?? If you have any questions about your medications, please ask the pharmacy when you orange picker your prescription. You may also call your primary provider if you still have questions.? ? 2. FOLLOW-UP:? A) It is essential that you keep all your follow-up appointments and go to your doctors??? appointments as scheduled. If a follow-up with your primary care provider has not been scheduled, you need to schedule an appointment to follow- up on your hospitalization within 1-2 weeks. If there is a conflict, please call the clinic ahead of time and reschedule the appointment.? ? 3. ?Lifestyle Modifications? -It is important to maintain a health level of fiber in your diet which will help improve symptoms of constipation and cause you to have more regular bowel movements with normal consistency. -It is very important for your health to AVOID/STOP smoking cigarettes. Please talk to your primarycare physician if you need help quitting smoking.? -Please include plenty of fruits and vegetables in your diet and maintain a healthy diet.? -Discuss an exercise program with your primary care physician. It is recommended that most individuals should exercise for 20 minutes at least 5 times per week.? Please call your Primary Care Provider, report to the nearest emergency room or call 911 if you develop new or concerning symptoms, including, but not limited to, fever, chest pain, palpitations, numbness, worsening confusion, weakness in arms/legs, dizziness, or worsening shortness of breath.? Thank you for allowing us to participate in your care!? ? Internal Medicine Team? [address]? [place] [address]? documented in this encounter Medications at Time [...] (one) tablet by mouth once daily 08/21/2021 lisinopril (Prinivil; Zestril) 10 MG tablet Take 1 (one) tablet by mouth once daily for 90 days 30 tablet 2 07/28/2022 10/26/2022 senna-docusate (Senokot-S) 8.6-50 MG tablet Take 1 (one) tablet by mouth 2 times daily for 90 days 60 tablet 2 07/28/2022 10/26/2022 documented as of this encounter Progress Notes * Jessica Vogel MD - 10/08/2022 1:07 PM CDT ACS Surgery plan of care Note: Chuck Barlow??is a 27 year old??male??PMH of HTN, DM, HLD, and surgical history significant for gastroschisis s/p primary repair, small bowel obstruction s/p exlap with resection of mid-terminal ileum,primary anastomosis (10/04), s/p laparoscopic cholecystectomy (07/13/22) admitted with pSBO. Patient tolerated regular diet and had BMX1, denies any abdominal pain , nausea or emesis. Patient can be discharged from surgical standpoint. Patient will follow up with ACS clinic after 2 week to discuss the treatment plan of his recurrent SBO including anastomosis revision vs non operative management. Patient voiced understanding. All questions were answered Plan: - Follow up- scheduled - Laxatives on discharge - Rest of care per primary team - ACS will sign off Jessica Vogel MD 10/08/2022 1:07 PM * Jessica Vogel MD - 10/08/2022 8:39 AM CDT ACS Surgery plan of care Note: Chuck Barlow is a 27 year old male PMH of HTN, DM, HLD, and surgical history significant for gastroschisis s/p primary repair, small bowel obstruction s/p exlap with resection of mid-terminal ileum, primary anastomosis (10/04), s/p laparoscopic cholecystectomy (07/13/22) admitted with pSBO. Currently the patient reports improvement in abdominal pain and is passing flatus. Initial plan wasSBFT (but he declined now) Plan: - Trial of clears - Serial abdominal exam - Replete lytes (K>4, Mg>2, Phos>3) - Remainder of care per primary Jessica Vogel MD 10/08/2022 8:40 AM documented in this encounter H&P Notes * Devang Burgess MD - 10/08/2022 4:51 AM CDT [facility] - [facility] INTERNAL MEDICINE HISTORY & PHYSICAL NOTE Date of Admission: 10/07/2022 Patient: Chuck Barlow Sex: male Age: [age] year old Date of : 1995 Code Status: Full Code SUBJECTIVE Chief Complaint: Abdominal pain History of Present Illness: Chuck Barlow is a 27 year old man with 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 Patient describes pain as sharp, cramping pain that waxes and wanes. He compares it as similar to his previous SBO/partial SBOs that have hospitalized him in the past. He has not had any n/v. He has been passing flatus. In the ED, patient was afebrile, HD stable. Labs significant for mild leukocytosis. CT AP w/ mild dilatation of multiple small bowel loops in R abdomen proximal to anastomosis consistent with partialSBO. ACS consulted. Patient admitted to medicine for further management. Past Medical History: Past Medical History: Diagnosis Date ??? Arthrogryposis 06/15/2021 ??? Controlled type 2 diabetes mellitus without complication, without long-term current use of insulin ([facility]) 06/16/2021 last A1C 5.6 1 month ago ??? Essential hypertension controlled with medication ??? GERD (gastroesophageal reflux disease) controlled with medication ??? 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 KARRIE (obstructive sleep apnea) 09/12/2021 Past Surgical History: Past Surgical History: Procedure Laterality Date ??? Cholecystectomy, Laparoscopic N/A 07/13/2022 N/A; LAPAROSCOPIC CHOLECYSTECTOMY ??? Laparotomy N/A 09/17/2021 N/A; LAPAROTOMY EXPLORATORY, BOWEL RESECTION, ENTROLYSIS ??? Septoplasty Bilateral 2019 ??? Small Bowel Resection Family History: No family history on file. Social History: Social History Socioeconomic History ??? Marital status: Single Spouse name: Not on file ??? Number of children: Not on file ??? Years of education: Not on file ??? Highest education level: Not on file Occupational History ??? Not on file Tobacco Use ??? Smoking status: Never ??? Smokeless tobacco: Former Types: Chew Quit date: 09/15/2020 Vaping Use ??? Vaping status: Never Used Substance and Sexual Activity ??? Alcohol use: Yes Comment: occ ??? Drug use: Never ??? Sexual activity: Not on file Other Topics Concern ??? Not on file Social History Narrative ??? Not on file Social Determinants of Health Financial Resource Strain: Low Risk (07/27/2022) Overall Financial Resource Strain (CARDIA) ??? Difficulty of Paying Living Expenses: Not hard at all Food Insecurity: No Food Insecurity (07/27/2022) Hunger Vital Sign ??? Worried About Running Out of Food in the Last Year: Never true ??? Ran Out of Food in the Last Year: Never true Transportation Needs: No Transportation Needs (07/27/2022) PRAPARE - Transportation ??? Lack of Transportation (Medical): No ??? Lack of Transportation (Non-Medical): No Stress: No Stress Concern Present (07/27/2022) [employer] [place] [employer] - Occupational Stress Questionnaire ??? Feeling of Stress : Not at all Housing Stability: High Risk (07/27/2022) Housing Stability Vital Sign ??? Unable to Pay for Housing in the Last Year: Yes ??? Number of Places Lived in the Last Year: 1 ??? Unstable Housing in the Last Year: No Allergies: No Known Allergies Home Medications: No current facility-administered medications on file prior to encounter. Current Outpatient Medications on File Prior to Encounter Medication Sig Dispense Refill ??? acetaminophen (Tylenol) 325 MG tablet Take 2 (two) tablets by mouth every 4 hours as needed forFever or Pain Maximum allowable Acetaminophen amount = 4 Grams (4000 mg) / 24 hours. (Patient not taking: Reported on 07/27/2022) 30 tablet 0 ??? amLODIPine (NORVASC) 10 MG tablet Take 1 (one) tablet by mouth once daily ??? ketoconazole (Nizoral) 2 % shampoo Apply to affected area Two times a week ??? Lancets (ONETOUCH DELICA PLUS 33G EXTRA FINE LANCET) USE 1 LANCET TO PRICK FINGER TWICE DAILY BEFORE TESTING (Patient not taking: Reported on 07/27/2022) 100 Each PRN ??? lisinopril (Prinivil; Zestril) 10 MG tablet Take 1 (one) tablet by mouth once daily for 90 days30 tablet 2 ??? montelukast (SINGULAIR) 10 MG tablet Take 1 (one) tablet by mouth at bedtime ??? omeprazole (PriLOSEC) 40 MG capsule Take 1 (one) capsule by mouth once daily as needed ??? oxyCODONE, immediate release, (Roxicodone) 5 MG tablet Take 1 (one) tablet by mouth every 6 hours as needed for Pain (Patient not taking: Reported on 07/27/2022) 10 tablet 0 ??? polyethylene glycol 3350 (Miralax) 17 GM/SCOOP powder Take 17 (seventeen) g by mouth 2 times daily 850 g 2 ??? pravastatin (PRAVACHOL) 40 MG tablet Take 1 (one) tablet by mouth every evening ??? SALINE NASAL SPRAY NA ??? senna-docusate (Senokot-S) 8.6-50 MG tablet Take 1 (one) tablet by mouth 2 times daily for 90 days 60 tablet 2 ??? SITagliptin (JANUVIA) 25 MG tablet Take 1 (one) tablet by mouth once daily Current Medications: Scheduled: ??? 0.9% NaCl 3 mL Intracatheter q8h ??? amLODIPine 10 mg Oral QDAY ??? insulin aspart 0-6 Units Subcutaneous q4h ??? iopamidol Intravenous Contrast - Once ??? lisinopril 10 mg Oral QDAY ??? pantoprazole EC 40 mg Oral QDAY ??? pravastatin 40 mg Oral QPM Continuous: PRN: Review of Systems: Review of Systems Constitutional: Negative for chills and fever. Respiratory: Negative for cough and shortness of breath. Cardiovascular: Negative for chest pain and leg swelling. Gastrointestinal: Positive for abdominal pain and constipation. Negative for diarrhea, nausea and vomiting. Genitourinary: Negative for dysuria and flank pain. Neurological: Negative for weakness. OBJECTIVE Vital Signs: Temp: [97.5 ??F (36.4 ??C)-97.7 ??F (36.5 ??C)] 97.7 ??F (36.5 ??C) Pulse: [78-114] 78 Resp: [16-17] 17 BP: (108-141)/(64-92) 124/89 Physical Exam: Physical Exam Constitutional: General: He is not in acute distress. Appearance: Normal appearance. HENT: Head: Normocephalic and atraumatic. Mouth/Throat: Mouth: Mucous membranes are moist. Eyes: Extraocular Movements: Extraocular movements intact. Conjunctiva/sclera: Conjunctivae normal. Cardiovascular: Rate and Rhythm: Normal rate and regular rhythm. Pulses: Normal pulses. Heart sounds: Normal heart sounds. Pulmonary: Effort: Pulmonary effort is normal. Breath sounds: Normal breath sounds. Abdominal: General: Abdomen is flat. Palpations: Abdomen is soft. Comments: Mild diffuse TTP, high pitched bowel sounds Neurological: Mental Status: He is alert. Lab Results: CBC: Recent Labs Component Name 10/07/22173307/28/2224207/27/22256 WBC 12.0* 8.6 8.2 HGB 14.8 12.7 12.2 HCT 43.8 39.2 38.1 MCV 80.2* 81.2 80.5* Coagulation Panel: Recent Labs Component Name 07/25/22 1657 PT 12.7 INR 1.0 BMP: Recent Labs Component Name 10/07/22173307/28/2224207/27/22256 NA 138 144 141 POTASSIUM 4.3 3.8 3.9 CL 103 105 105 CO2 25 BUN 16 15 15 CREATININE 0.76 0.86 0.86 CALCIUM 10.5* 9.4 9.3 Recent Labs Component Name 07/28/2224207/27/2225607/26/22 0344 MAGNESIUM 2.2 2.1 1.9 Recent Labs Component Name 07/28/2224207/27/22 0257 07/26/22 0344 PHOS 4.2 3.8 4.0 Hepatic Panel: Recent Labs Component Name 10/07/22 17307/25/22 1754 03/21/22 0606 03/18/22 0419 03/17/22 0341 AST 23 20 - - 17 ALT 40 55 - - 40 ALKPHOS 98 120 - - 113 TBILI 1.0 0.8 - - 1.0 ALB 4.5 4.2 3.6 - 4.1 - = values in this interval not displayed. Microbiology: Reviewed Imaging & Studies: Reviewed ASSESSMENT & PLAN Small bowel obstruction, partial (CMS/HCC) (POA: Unknown) #Partial SBO - 2/2 bowel surgeries from gastroschisis - Currently passing gas, pain improving without intervention, no nausea/emesis no BM Plan: - ACS consulted, appreciate recs - NPO pending ACS recs #HTN - Home meds: amlodipine/lisinopril Plan: - Continue home meds #DM2 - Last A1c 07/26/22 6.3% - Home regimen januvia Plan: - Accuchecks + SSI #Leukocytosis - reactive, CTM #GERD: PPI #HLD: home statin #KARRIE: home CPAP Code: Full Diet: NPO sips Electrolytes: Replete PRN PPx: SCDs Access: PIV Dispo: Admit to Medicine. The above assessment and plan will be discussed with the attending. This note is not final until attested by attending physician. Devang Burgess MD Internal Medicine Resident [facility] - [facility] 10/08/2022 5:31 AM Associated attestation - Julio Irwin MD - 10/08/2022 2:09 PM CDT I have verified the documentation of the resident including all history, exam, and medical decision-making details. I have personally performed a physical exam and have personally reviewed the data to support my medical decision-making as outlined in their note. I agree with their assessment and plan other than any corrections/additions as documented below. Corrections/Additions: - Patient has had several good BMs thus far today and has had resolution of his abdominal pain. Tolerating a diet well. Appears his partial SBO is now resolved. Surgery has signed off. Will dischargehome with close outpatient followup. Date of Service: 10/08/2022 Julio Irwin MD documented in this encounter Consult Notes * Yanni Kang MD - 10/08/2022 6:55 AM CDTAssociated Order(s): IP CONSULT TO GENERAL SURGERY Images from the original note were not included. Acute Care Surgery Consult History and Physical Patient Name: Chuck Barlow Age/Gender: 27 year old male : 1995 Date: 10/08/2022 Reason for Consult: partial SBO HPI: Chuck Barlow is a 27 year old male with PMH s/f gastroschisis as childhood repaired primarily, small bowel obstruction in 09/2021 s/p ex lap, resection of mid-terminal ileum, primary anastomosis by Dr. Cesar and most recent laparoscopic cholecystectomy by Dr. Miles on 07/13/22 presents witha recurrent partial small bowel obstruction. Patient reports feeling 24 hours of abdominal pain associated with nausea and loss of appetite. He has passed flatus today and had a bowel movement this AM - however he became concerned this afternoon as his symptoms began to mimic his previous presentations of partial SBO. Reports his abdominal pain is generalized and located periumbilical without radiation. He states that it is hard to pinpoint the pain and describes the pain and abdominal cramps. Denies fever, chills, emesis, or diarrhea. Labs remarkable for a WBC of 12, Lactate of 1, and BMP unremarkable. CT AP with IV contrast revealed mild borderline dilatation of multiple small bowel loops in the right hemiadbomen just proxima lto the small bowel anastatmosis, unchanged since prior (09/15/21) and likely representing partial small bowel obstruction vs ileus. No definite transition point seen. ACS sub sequently consulted. Past Medical History: Diagnosis Date ??? Arthrogryposis 06/15/2021 ??? Controlled type 2 diabetes mellitus without complication, without long-term current use of insulin ([facility]) 06/16/2021 last A1C 5.6 1 month [...] Septoplasty Bilateral 2019 ??? Small Bowel Resection No Known Allergies Outpatient Medications: ??? acetaminophen (Tylenol) 325 MG tablet ??? amLODIPine (NORVASC) 10 MG tablet ??? ketoconazole (Nizoral) 2 % shampoo ??? Lancets (ONETOUCH DELICA PLUS 33G EXTRA FINE LANCET) ??? lisinopril (Prinivil; Zestril) 10 MG tablet ??? montelukast (SINGULAIR) 10 MG tablet ??? omeprazole (PriLOSEC) 40 MG capsule ??? oxyCODONE, immediate release, (Roxicodone) 5 MG tablet ??? polyethylene glycol 3350 (Miralax) 17 GM/SCOOP powder ??? pravastatin (PRAVACHOL) 40 MG tablet ??? SALINE NASAL SPRAY NA ??? senna-docusate (Senokot-S) 8.6-50 MG tablet ??? SITagliptin (JANUVIA) 25 MG tablet Inpatient Medications: Current Facility-Administered Medications Medication ??? 0.9% NaCl injection 3 mL And ??? 0.9% NaCl injection 1-10 mL ??? amLODIPine (Norvasc) tablet 10 mg ??? dextrose 10 % IV bolus Or ??? dextrose 10 % IV bolus ??? glucagon (Glucagen) injection 1 mg ??? glucose (Diabetic Use) (Dex4 Glucose) oral liquid ??? glucose (Diabetic Use) oral gel ??? glucose chew tablet 4 tablet ??? insulin lispro (HumaLOG;ADMelog) 100 UNIT/ML pen 0-6 Units ??? iopamidol (Isovue 370) 76 % contrast ??? lisinopril (Prinivil; Zestril) tablet 10 mg ??? pantoprazole EC (Protonix) tablet 40 mg ??? pravastatin (Pravachol) tablet 40 mg Current Outpatient Medications Medication ??? acetaminophen (Tylenol) 325 MG tablet ??? amLODIPine (NORVASC) 10 MG tablet ??? ketoconazole (Nizoral) 2 % shampoo ??? Lancets (ONETOUCH DELICA PLUS 33G EXTRA FINE LANCET) ??? lisinopril (Prinivil; Zestril) 10 MG tablet ??? montelukast (SINGULAIR) 10 MG tablet ??? omeprazole (PriLOSEC) 40 MG capsule ??? oxyCODONE, immediate release, (Roxicodone) 5 MG tablet ??? polyethylene glycol 3350 (Miralax) 17 GM/SCOOP powder ??? pravastatin (PRAVACHOL) 40 MG tablet ??? SALINE NASAL SPRAY NA ??? senna-docusate (Senokot-S) 8.6-50 MG tablet ??? SITagliptin (JANUVIA) 25 MG tablet Social History Tobacco Use ??? Smoking status: Never ??? Smokeless tobacco: Former Types: Chew Quit date: 09/15/2020 Vaping Use ??? Vaping status: Never Used Substance Use Topics ??? Alcohol use: Yes Comment: occ ??? Drug use: Never No family history on file. Problem List/Present on Admission: Small bowel obstruction, partial (CMS/HCC) (POA: Unknown) REVIEW OF SYSTEMS REVIEW OF SYSTEMS (positives in bold): CONST: fever, chills EENT: visual changes, sore throat CV: chest pain, palpitations RESP: shortness of breath, cough GI: abdominal pain, nausea, fullness, vomiting, diarrhea, constipation : dysuria, hematuria MSK: myalgias, arthralgias NEURO: weakness, syncope SKIN: rash, skin changes Remainder of ROS negative unless documented in HPI PHYSICAL EXAM Vitals: 10/08/22 0302 10/08/22 0332 10/08/22 0402 10/08/22 0432 BP: 122/76 118/74 121/64 124/89 Pulse: Resp: Temp: SpO2: 99% 99% 96% 99% Weight: Height: Estimated body mass index is 36.26 kg/m?? as calculated from the following: Height as of this encounter: 1.803 m (5' 11 ). Weight as of this encounter: 117.9 kg (260 lb). Gen: alert and oriented, NAD ENT: Head atraumatic Resp: unlabored breathing on RA CV: RRR, pulse 2+ Abd: Soft, nontender, nondisteded, no rebound/guarding, non-peritoneal MSK: WWP, no c/c/e Neuro: Moving all extremities, no focal deficits Psych: Appropriate mood and affect Recent Labs: CBC: Recent Labs Component Name 10/07/22 1734 WBC 12.0* HGB 14.8 HCT 43.8 BMP: Recent Labs Component Name 10/07/22 1734 NA 138 CL 103 CO2 23 BUN 16 CREATININE 0.76 Recent Labs Component Name 07/25/22 1657 PT 12.7 INR 1.0 Imaging: CT ABDOMEN PELVIS W CONTRAST Result Date: 10/08/2022 Impression: Mild borderline dilatation of multiple small bowel loops in the right hemiabdomen just proximal to the small bowel anastomosis, unchanged since 09/15/2021, and likely representing partial small bowel obstruction versus ileus. No definite transition point is seen. > Dictated by MD Gwendolyn (vice president of operations). I, Adriel Rosen MD have personally reviewed and interpreted this exam ination/study. > Interpreting Provider: Adriel Rosen MD on 10/08/2022 1:45 AM Assessment and Plan: Chuck Barlow is a 27 year old male PMH of HTN, DM, HLD, and surgical history significant for gastroschisis s/p primary repair, small bowel obstruction s/p exlap with resection of mid-terminal ileum, primary anastomosis (10/04), s/p laparoscopic cholecystectomy (07/13/22) who presents with abdominal pain and fullness with associated nausea for the past day. Patient is hemodynamically stable and non peritonitic. Patients history, physical examination, labs, and imaging indicate likely partial small bowel obstruction. - Plan for SBFT this AM - NPO until SBFT, mIVF - Serial abdominal exams - Replete lytes (K>4, Mg>2, Phos>3) - Remainder of care per primary Note written with assistance from night resident Dr. Napier Staffed:Jorge Luis Wilkerson MD General Surgery Resident, PGY1 10/08/2022 6:55 AM Patient seen on rounds with team Known to me from previous clinic visits Imaging and report reviewed Labs reviewed Improving abdominal pain Passing flatus Will hold on SBFT and begin clear liquids I have seen and examined the patient with the resident, and I agree with the findings and plan of care as documented by the resident Date of service:10/08/22 Yanni Kang MD 10/08/2022 10:12 AM documented in this encounter ED Notes * Aleta Arboleda RN - 10/08/2022 2:59 PM CDT Per MD Burr, pt okay to be discharged at this time. * Aleta Arboleda RN - 10/08/2022 11:23 AM CDT Pt states he finished his ordered breakfast, clear liquids, over an hour ago and has had no N/V. Will inform treating resident. * Aleta Arboleda RN - 10/08/2022 8:56 AM CDT Patient does report passing gas this morning. MD Maier aware. * Aleta Arboleda RN - 10/08/2022 8:17 AM CDT Patient given urinal. Patient also requesting to remove NC at this time. Patient 98% on 2L. NC removed per patient request, but patient informed NC will need to be reapplied if his SPO2 drops. Will continue to monitor SPO2. * Brian Wray RN - 10/08/2022 7:21 AM CDT Report to day shift RN * Carolyn Houston MD - 10/07/2022 11:37 PM CDT ED ATTENDING NOTE Patient seen as a team with Dr. Alvares who has also contributed to this note. History: Chuck Barlow is a 27 year old male with a past medical history that includes GERD, gastroschisis, and multiple SBOs s/p small bowel resection is presenting to the ED for abdominal pain. Patient reports history of 3-4 bowel blockages in the past and states that current abdominal pain feels similar to previous SBO. Patient reports pain is localized to central abdomen, and onset a few hours ago. Patient reports he passed gas twice day and had a bowel movement this morning, but states this was his presentation for previous SBO. Patient reports hx of several abdominal surgeries including a cholecystectomy 2 months ago. Patient denies fever and vomiting. Patient reports he had vomiting with his first two bowel obstructions. Patient denies issues urinating. Patient reports tolerating fluids. Patient denies taking any pain medications today. Patient has had similar symptoms in the past. Symptoms are worse with nothing, better with dilaudid. Patient has no other complaints. Past Medical History: Diagnosis Date ??? Arthrogryposis 06/15/2021 ??? Controlled type 2 diabetes mellitus without complication, without long-term current use of insulin ([facility]) 06/16/2021 last A1C 5.6 1 month [...] 2019 ??? Small Bowel Resection Social History Socioeconomic History ??? Marital status: Single Spouse name: Not on file ??? Number of children: Not on file ??? Years of education: Not on file ??? Highest education level: Not on file Occupational History ??? Not on file Tobacco Use ??? Smoking status: Never ??? Smokeless tobacco: Former Types: Chew Quit date: 09/15/2020 Vaping Use ??? Vaping status: Never Used Substance and Sexual Activity ??? Alcohol use: Yes Comment: occ ??? Drug use: Never ??? Sexual activity: Not on file Other Topics Concern ??? Not on file Social History Narrative ??? Not on file Social Determinants of Health Financial Resource Strain: Low Risk (07/27/2022) Overall Financial Resource Strain (CARDIA) ??? Difficulty of Paying Living Expenses: Not hard at all Food Insecurity: No Food Insecurity (07/27/2022) Hunger Vital Sign ??? Worried About Running Out of Food in the Last Year: Never true ??? Ran Out of Food in the Last Year: Never true Transportation Needs: No Transportation Needs (07/27/2022) PRAPARE - Transportation ??? Lack of Transportation (Medical): No ??? Lack of Transportation (Non-Medical): No Stress: No Stress Concern Present (07/27/2022) [employer] [place] [employer] - Occupational Stress Questionnaire ??? Feeling of Stress : Not at all Housing Stability: High Risk (07/27/2022) Housing Stability Vital Sign ??? Unable to Pay for Housing in the Last Year: Yes ??? Number of Places Lived in the Last Year: 1 ??? Unstable Housing in the Last Year: No Review of Systems: Review of Systems Constitutional: Negative for chills and fever. HENT: Negative for rhinorrhea and sore throat. Eyes: Negative for pain and visual disturbance. Respiratory: Negative for cough and shortness of breath. Cardiovascular: Negative for chest pain and palpitations. Gastrointestinal: Positive for abdominal pain. Negative for diarrhea, nausea and vomiting. Genitourinary: Negative for difficulty urinating and dysuria. Musculoskeletal: Negative for arthralgias and back pain. Skin: Negative for rash and wound. Neurological: Negative for weakness and headaches. Exam: Vitals: 10/07/22 1629 10/07/22 2047 BP: 141/91 130/92 Pulse: (!) 114 78 Resp: 16 17 Temp: 97.5 ??F (36.4 ??C) 97.7 ??F (36.5 ??C) SpO2: 96% 100% Weight: 117.9 kg (260 lb) Height: 1.803 m (5' 11 ) Physical Exam Constitutional: Appearance: He is well-developed. Comments: Awake, alert, sitting in chair, appears uncomfortable Pt able to ambulate independently with steady gait HENT: Head: Normocephalic and atraumatic. Eyes: Extraocular Movements: Extraocular movements intact. Cardiovascular: Rate and Rhythm: Normal rate and regular rhythm. Pulmonary: Effort: Pulmonary effort is normal. Breath sounds: Normal breath sounds. Abdominal: General: A surgical scar is present. Bowel sounds are normal. There is no distension. Palpations: Abdomen is soft. Tenderness: There is generalized abdominal tenderness. Comments: Abdomen soft, Well healed midline surgical scar Musculoskeletal: General: No deformity. Cervical back: Neck supple. Skin: General: Skin is warm and dry. Neurological: Mental Status: He is alert and oriented to person, place, and time. The patient's Oxygen Saturation Monitor was interpreted by me. The reading was 100%. The patient was on RA at the time of the reading. This is interpreted as normal. Labs Reviewed CBC W AUTO DIFFERENTIAL - Abnormal; Notable for the following components: Result Value WBC 12.0 (*) MCV 80.2 (*) Platelet Count 406 (*) Neutrophils % 76.9 (*) Lymphocytes % 17.2 (*) Monocytes % 4.3 (*) Neutrophils Absolute 9.22 (*) All other components within normal limits COMPREHENSIVE METABOLIC PANEL - Abnormal; Notable for the following components: Glucose 116 (*) Calcium 10.5 (*) Protein Total 8.7 (*) All other components within normal limits LACTIC ACID BLOOD REFLEX TO REPEAT - Normal URINALYSIS REFLEX TO MICROSCOPIC NO CULTURE CT ABDOMEN PELVIS W CONTRAST Final Result PROCEDURE: CT ABDOMEN PELVIS W CONTRAST, DATE/TIME OF EXAM: 10/07/2022 7:19 PM, LOCATION [facility] INDICATION: R10.84: Abdominal pain, generalized ADDITIONAL CLINICAL INFORMATION: Ordering Provider Reason For Exam: abdominal pain, extensive surgical hx, hx obstruction; r/o [...] seen. > Dictated by Adelita Pruitt MD (vice president of operations). I, Adriel Rosen MD have personally reviewed and interpreted this examination/study. > Interpreting Provider: Adriel Rosen MD on 10/08/2022 1:45 AM Medications iopamidol (Isovue 370) 76 % contrast (100 mL Intravenous $ Given - Contrast 10/07/22 190) droPERidol (Inapsine) injection 1.25 mg (1.25 mg Intravenous $ Given 10/07/22 1751) HYDROmorphone (Dilaudid) injection 0.4 mg (0.4 mg Intravenous $ Given 10/08/22 0042) Medical Decision Makin27 year old male with above history brought for evaluation of belly cramps. DDx: SBO vs partial SBOvs ileus vs intra abdominal infection vs dehydration vs other 1. Work Up - See lab and radiology orders 2. Therapy - See orders Amount and/or Complexity of Data Reviewed: Patient information was obtained primarily from the patient Social determinants of health: Yes Social Determinants of Health Tobacco Use: Medium Risk (10/07/2022) Patient History ??? Smoking Tobacco Use: Never ??? Smokeless Tobacco Use: Former ??? Passive Exposure: Not on file Alcohol Use: Not At Risk (07/25/2022) AUDIT-C ??? Frequency of Alcohol Consumption: Never ??? Average Number of Drinks: Patient does not drink ??? Frequency of Binge Drinking: Never Financial Resource Strain: Low Risk (07/27/2022) Overall Financial Resource Strain (CARDIA) ??? Difficulty of Paying Living Expenses: Not hard at all Food Insecurity: No Food Insecurity (07/27/2022) Hunger Vital Sign ??? Worried About Running Out of Food in the Last Year: Never true ??? Ran Out of Food in the Last Year: Never true Transportation Needs: No Transportation Needs (07/27/2022) PRAPARE - Transportation ??? Lack of Transportation (Medical): No ??? Lack of Transportation (Non-Medical): No Stress: No Stress Concern Present (07/27/2022) [employer] [place] [employer] - Occupational Stress Questionnaire ??? Feeling of Stress : Not at all Depression: Not on file Housing Stability: High Risk (07/27/2022) Housing Stability Vital Sign ??? Unable to Pay for Housing in the Last Year: Yes ??? Number of Places Lived in the Last Year: 1 ??? Unstable Housing in the Last Year: No Amount and/or Complexity of Data Reviewed medical complexity: Triage notes and available nursing notes reviewed , Clinical lab tests: orderedand reviewed and Discuss the patient with other providers: yes ?? 12:00 AM - CT A/P w contrast indicates mild borderline dilatation of multiple small bowel loops in the right hemiabdomen just proximal to the small bowel anastomosis, unchanged since 09/15/2021, and likely representing partial small bowel obstruction versus ileus. No definite transition point is seen. Labs reviewed. CMP grossly unremarkable, CBC shows elevated WBC to 12. lactic acid WNL at 1.0. Given pain meds. 12:30 AM - Reassuring that patient has had a bowel movement and flatus since pain started. Will plan to admit patient for pain control at this time. 1:30 AM - Discussed patient case with medicine who requests a surgery consult. Will page surgery. 2:00 AM - Discussed all the pertinent aspects of the case with Surgery who will see the patient. ACS has seen and evaluated pt. They state no surgical intervention and clear pt for admission to medicine. - After discussion with Medicine, the patient will be admitted to their service for further management of partial SBO vs ileus and pain control. -[id number] -Medicine has assumed care of pt at this time. -I have reviewed the diagnostic findings with the patient and they have had an opportunity to ask me any questions they have about care, diagnosis, and reason for admission. The patient states understanding and agrees to admission. Procedure done at this time No Ultrasound done at this time No Medications given in ED: Yes Medications prescribed: No Revised home medications: No Conclusion and Disposition: Acute problems: abdominal pain, partial SBO Exacerbations of chronic problems: recurrent SBO Systemic issues: none Consultations in the ED: Medicine, ACS Follow up: pending Clinical Impression: 1. Small bowel obstruction, partial (CMS/HCC) 2. Abdominal pain, generalized 3. Nausea and vomiting, unspecified vomiting type Disposition: Admit to Medicine, awaits inpt bed. By signing my name below, I, Reena Chin, attest that this documentation has been prepared underthe direction and in the presence of Dr. Houston. Signed: Kenyatta Hoff. I, Dr. Houston, personally performed the services described in this documentation. All medical record entries made by the scribe were at my direction and in my presence. I have reviewed the chart and agree that the record reflects my personal performance and is accurate and complete. * Carolyn Houston MD - 10/07/2022 11:32 PM CDT Bed: [facility] Expected date: Expected time: Means of arrival: Comments: Jinny * Thom Hall - 10/07/2022 5:34 PM CDT UA needed * Guillermina Gamez PA-C - 10/07/2022 5:00 PM CDT Medical Screening Exam 10/07/2022 5:00 PM Provider contact with the patient Chuck Barlow CC: Pain Abdominal Chief complaint narrative was entered by triage nurse, not by provider Provider in Triage HPI: Chuck Barlow is a 27 year old male PMH DM and HTN who presents to the ED withconcern for bowl obstruction. States he has abdominal pain since this morning. States he had BM this morning and has passed minimal gas 1 time. States this is how his obstructions have presented in the past. Denies N/V. Limited Chart History: Past Medical History: Diagnosis Date ??? Arthrogryposis 06/15/2021 ??? Controlled type 2 diabetes mellitus without complication, without long-term current use of insulin ([facility]) 06/16/2021 last A1C 5.6 1 month [...] Septoplasty Bilateral 2019 ??? Small Bowel Resection No current facility-administered medications for this encounter. Current Outpatient Medications Medication Sig Dispense Refill ??? acetaminophen (Tylenol) 325 MG tablet Take 2 (two) tablets by mouth every 4 hours as needed forFever or Pain Maximum allowable Acetaminophen amount = 4 Grams (4000 mg) / 24 hours. (Patient not taking: Reported on 07/27/2022) 30 tablet 0 ??? amLODIPine (NORVASC) 10 MG tablet Take 1 (one) tablet by mouth once daily ??? ketoconazole (Nizoral) 2 % shampoo Apply to affected area Two times a week ??? Lancets (ONETOUCH DELICA PLUS 33G EXTRA FINE LANCET) USE 1 LANCET TO PRICK FINGER TWICE DAILY BEFORE TESTING (Patient not taking: Reported on 07/27/2022) 100 Each PRN ??? lisinopril (Prinivil; Zestril) 10 MG tablet Take 1 (one) tablet by mouth once daily for 90 days30 tablet 2 ??? montelukast (SINGULAIR) 10 MG tablet Take 1 (one) tablet by mouth at bedtime ??? omeprazole (PriLOSEC) 40 MG capsule Take 1 (one) capsule by mouth once daily as needed ??? oxyCODONE, immediate release, (Roxicodone) 5 MG tablet Take 1 (one) tablet by mouth every 6 hours as needed for Pain (Patient not taking: Reported on 07/27/2022) 10 tablet 0 ??? polyethylene glycol 3350 (Miralax) 17 GM/SCOOP powder Take 17 (seventeen) g by mouth 2 times daily 850 g 2 ??? pravastatin (PRAVACHOL) 40 MG tablet Take 1 (one) tablet by mouth every evening ??? SALINE NASAL SPRAY NA ??? senna-docusate (Senokot-S) 8.6-50 MG tablet Take 1 (one) tablet by mouth 2 times daily for 90 days 60 tablet 2 ??? SITagliptin (JANUVIA) 25 MG tablet Take 1 (one) tablet by mouth once daily No Known Allergies PCP: Pankaj Rosenberg MD (Above may be pending completion) Review of Systems: Primary System Noted in HPI. Constitutional: No fevers or chills Psychiatric: No mood changes All other systems reviewed and are negative. Vital Signs reviewed in Triage BP 141/91 Pulse (!) 114 Temp 97.5 ??F (36.4 ??C) Resp 16 Ht 1.803 m (5' 11 ) Wt 117.9 kg (260 lb) SpO2 96% Pertinent Physical Findings: Constitutional: vitals as above, WDWN. Appears uncomfortable Head: Head normocephalic, atraumatic Eyes: conjunctiva clear ENT: no rhinorrhea Neck: neck supple, no nuchal rigidity Resp: respirations even and unlabored, lungs clear bilaterally CV: tachycardic Abd: nondistended Skin: warm, dry MSK: ambulatory, moves all extremities Neuro: A&O x 3, CN 2-12 grossly intact bilat Psych: Normal affect Complete physical exam is limited due to patient sitting in up right position in chair MDM: I have reviewed all lab and imaging resulted ordered during this visit and available at the time ofthis note. Triage notes and available nursing notes reviewed. Previous medical record reviewed whenavailable. Management options include but not limited to: physical exam, laboratory testing, discussion with other providers. PLAN Diagnostic tests ordered: No orders of the defined types were placed in this encounter. MEDICATIONS FOR CURRENT ENCOUNTER: ?? SCHEDULED MEDICATIONS: ?? No current facility-administered medications for this encounter. ?? CONTINUOUS MEDICATIONS: ?? No current facility-administered medications for this encounter. ?? PRN MEDICATIONS: ?? No current facility-administered medications for this encounter. Clinical Impression: 1.Abdominal pain Based on the Medical Screening Exam performed and diagnostic tests at this time, further evaluationis indicated and will be performed. Patient will be transferred to a main ED room when one is available and care will be transferred to ER provider. GUILLERMINA GAMEZ PA-C documented in this encounter Plan of Treatment Not on file documented as of this encounter Procedures Procedure Name Priority Date/Time Associated Diagnosis Comments GLUCOSE - POINT OF CARE Routine 10/08/2022 2:50 PM CDT URINALYSIS REFLEX TO MICROSCOPIC NO CULTURE STAT 10/08/2022 8:51 AM CDT GLUCOSE - POINT OF CARE Routine 10/08/2022 8:[address] ABDOMEN PELVIS W CONTRAST STAT 10/07/2022 7:19 PM CDT Abdominal pain, generalized LACTIC ACID BLOOD REFLEX TO REPEAT STAT 10/07/2022 5:34 PM CDT CBC W AUTO DIFFERENTIAL STAT 10/07/2022 5:34 PM CDT COMPREHENSIVE METABOLIC PANEL STAT 10/07/2022 5:34 PM CDT documented in this encounter Results * (ABNORMAL) GLUCOSE - POINT OF CARE (10/08/2022 2:50 PM CDT) Glucose WB/POC 121(H) 70 - 115 mg/dL 10/08/2022 2:55 PM CDT [facility] Specimen Type Cap Fingerstick 05/26/ 2023 2:55 PM [facility] Blood BLOOD SPECIMEN / Unknown 10/08/2022 2:50 PM CDT 10/08/2022 2:55 PM CDT Julio Irwin MD LAB - POINT OF CARE ORDERABLES [facility] [address] [place] [id number], [facility] [phone] * (ABNORMAL) URINALYSIS REFLEX TO MICROSCOPIC NO CULTURE (10/08/2022 8:51 AM T) Color UA Yellow Straw, Yellow 10/08/2022 9:07 AM [facility] Clarity UA Clear Clear 10/08/2022 9:07 AM [facility] Specific [place] UA 1.042(H) 1.005 - 1.030 10/08/2022 9:07 AM [facility] pH UA 5.0 5.0 - 8.0 pH 10/08/2022 9:07 AM [facility] Protein UA Negative Negative 10/08/2022 9:07 AM [facility] Glucose UA Negative Negative 10/08/2022 9:07 AM [facility] Ketone UA 1+(A) Negative 10/08/2022 9:07 AM [facility] Bilirubin UA Negative Negative 10/08/2022 9:07 AM [facility] Blood UA Negative Negative 10/08/2022 9:07 AM [facility] Nitrite UA Negative Negative 10/08/2022 9:07 AM [facility] Leukocyte Esterase Negative Negative 10/08/2022 9:07 AM [facility] Urobilinogen UA Negative Negative mg/dL 10/08/2022 9:07 AM [facility] RBC UA 0-2 None Seen, 0-2, 3-5 /HPF 10/08/2022 9:07 AM [facility] WBC UA 0-5 None Seen, 0-5 /HPF 10/08/2022 9:07 AM [facility] Squamous Epithelial Cells UA None Seen None Seen, 0-2, 3-5 /HPF 10/08/2022 9:07 AM CDT [facility] Mucus UA 1+ /LPF 10/08/2022 9:07 AM CDT [facility] Urine URINE SPECIMEN OBTAINED BY CLEAN CATCH PROCEDURE / Unknown Collection / Unknown 10/08/2022 8:51 AM CDT 10/08/2022 8:59 AM CDT Narrative [facility] - 10/08/2022 9:07 AM CDT Guillermina Gamez PA-C LAB - URINALYSIS OR DERABLES [address] [address], [place] [phone] * GLUCOSE - POINT OF CARE (10/08/2022 8:45 AM CDT) Glucose WB/POC 114 70 - 115 mg/dL 10/08/2022 8:54 AM CDT [facility] Specimen Type Cap Fingerstick 2022 8:54 AM CDT [facility] Blood BLOOD SPECIMEN / Unknown 10/08/2022 8:45 AM CDT 10/08/2022 8:54 AM CDT Julio Irwin MD LAB - POINT OF CARE ORDERABLES [address] [address], [place] [phone] * CT ABDOMEN PELVIS W CONTRAST (10/07/2022 7:19 PM CDT) Anatomical Region Laterality Modality Abdomen, [...] seen. > Dictated by Adelita Pruitt MD (vice president of operations). I, Adriel Rosen MD have personally reviewed and interpreted this examination/study. > Interpreting Provider: Adriel Rosen MD on 10/08/2022 1:45 AM Narrative 10/08/2022 1:45 AM CDT PROCEDURE: ??CT ABDOMEN PELVIS W CONTRAST, DATE/TIME OF EXAM: ??10/07/2022 7:19 PM, LOCATION ??[facility] INDICATION: R10.84: Abdominal pain, generalized ADDITIONAL CLINICAL [...] DATE/TIME OF EXAM: 10/07/2022 7:19 PM, LOCATION [facility] INDICATION: R10.84: Abdominal pain, generalized ADDITIONAL CLINICAL [...] seen. > Dictated by Adelita Pruitt MD (vice president of operations). I, Adriel Rosen MD have personally reviewed and interpreted this examination/study. > Interpreting Provider: Adriel Rosen MD on 10/08/2022 1:45 AM Guillermina Gamez PA-C CT ORDERABLES * LACTIC ACID BLOOD REFLEX TO REPEAT (10/07/2022 5:34 PM CDT) Lactic Acid-Stat 1.0 <=2.0 mmol/L 10/07/2022 6:03 PM CDT [facility] Blood BLOOD SPECIMEN / Unknown Venipuncture / Unknown 10/07/2022 5:34 PM CDT 10/07/2022 5:40 PM CDT Guillermina Gamez PA-C LAB - CHEMISTRY ORD ERABLES [facility] [address] [place] [address], [facility] [phone] * (ABNORMAL) COMPREHENSIVE METABOLIC PANEL (10/07/2022 5:34 PM CDT) BUN 16 7 - 26 mg/dL 10/07/2022 6:08 PM [facility] Creatinine 0.76 0.71 - 1.16 mg/dL 10/07/2022 6:08 PM [facility] Sodium 138 136 - 145 mmol/L 10/07/2022 6:08 PM [facility] Potassium 4.3 3.5 - 4.5 mmol/L 10/07/2022 6:08 PM [facility] Chloride 103 98 - 107 mmol/L 10/07/2022 6:08 PM [facility] CO2 23 22 - 29 mmol/L 10/07/2022 6:08 PM [facility] Glucose 116(H) 70 - 115 mg/dL 10/07/2022 6:08 PM [facility] Calcium 10.5(H) 8.4 - 10.2 mg/dL 10/07/2022 6:08 PM [facility] Protein Total 8.7(H) 6.0 - 8.3 g/dL 10/07/2022 6:08 PM [facility] Albumin 4.5 3.4 - 5.0 g/dL 10/07/2022 6:08 PM [facility] Bilirubin Total 1.0 0.2 - 1.2 mg/dL 10/07/2022 6:08 PM [facility] Alkaline Phosphatase 98 40 - 150 U/L 10/07/2022 6:08 PM [facility] ALT 40 5 - 55 U/L 10/07/2022 6:08 PM [facility] AST 23 5 - 34 U/L 10/07/2022 6:08 PM [facility] Anion Gap 16 8 - 18 10/07/2022 6:08 PM [facility] BUN/Creatinine Ratio 21 7 - 23 10/07/2022 6:08 PM [facility] Osmolality Calculated 288 270 - 300 mOsm/kg 10/07/2022 6:08 PM [facility] Albumin/Globulin Ratio 1.1 1.1 - 2.3 10/07/2022 6:08 PM [facility] eGFR by CKD-EPI >90 >=90 mL/min/1.7 3 m2 10/07/2022 6:08 PM [facility] Blood BLOOD SPECIMEN / Unknown Venipuncture / Unknown 10/07/2022 5:34 PM CDT 10/07/2022 5:40 PM CDT Guillermina Gamez PA-C LAB - CHEMISTRY ORD ERABLES [facility] [address] [place] [address], [facility] [phone] * (ABNORMAL) CBC W AUTO DIFFERENTIAL (10/07/2022 5:34 PM CDT) WBC 12.0(H) 3.5 - 10.5 10? 3 /uL 10/07/2022 5:46 PM [facility] RBC 5.46 4.30 - 5.70 10? 6 /uL 10/07/2022 5:46 PM [facility] Hemoglobin 14.8 12.0 - 17.6 g/dL 10/07/2022 5:46 PM [facility] Hematocrit 43.8 35.2 - 51.7 % 10/07/2022 5:46 PM [facility] MCV 80.2(L) 80.7 - 98.3 fL 10/07/2022 5:46 PM [facility] MCH 27.1 26.7 - 34.0 pg 10/07/2022 5:46 PM [facility] MCHC 33.8 30.8 - 35.9 g/dL 10/07/2022 5:46 PM [facility] RDW-SD 40.0 36.0 - 50.0 fL 10/07/2022 5:46 PM [facility] RDW-CV 13.9 11.2 - 14.8 % 10/07/2022 5:46 PM [facility] Platelet Count 406(H) 150 - 400 10? 3 /uL 10/07/2022 5:46 PM [facility] MPV 10.2 9.4 - 12.9 fL 10/07/2022 5:46 PM [facility] nRBC Absolute 0.00 0 10? 3 /uL 10/07/2022 5:46 PM [facility] nRBC Auto 0.0 0 /100 WBC 10/07/2022 5:46 PM [facility] Neutrophils % 76.9(H) 35.0 - 70.0 % 10/07/2022 5:46 PM [facility] Lymphocytes % 17.2(L) 20.0 - 43.0 % 10/07/2022 5:46 PM [facility] Monocytes % 4.3(L) 5.0 - 13.0 % 10/07/2022 5:46 PM [facility] Eosinophils % 0.7 0.0 - 6.0 % 10/07/2022 5:46 PM [facility] Basophil % 0.5 0.0 - 2.0 % 10/07/2022 5:46 PM [facility] Neutrophils Absolute 9.22(H) 1.60 - 7.00 10? 3 /uL 10/07/2022 5:46 PM [facility] Lymphocyte Absolute 2.07 1.10 - 3.90 10? 3 /uL 10/07/2022 5:46 PM [facility] Monocytes Absolute 0.52 0.26 - 1.07 10? 3 /uL 10/07/2022 5:46 PM [facility] Eosinophils Absolute 0.09 0.00 - 0.47 10? 3 /uL 10/07/2022 5:46 PM [facility] Basophils Absolute 0.06 0.00 - 0.08 10? 3 /uL 10/07/2022 5:46 PM CDT [facility] Immature Granulocytes % 0.4 0.0 - 1.0 % 10/07/2022 5:46 PM CDT [facility] Immature Granulocytes Absolute 0.05 10/07/2022 5:46 PM CDT [facility] Blood BLOOD SPECIMEN / Unknown Venipuncture / Unknown 10/07/2022 5:34 PM CDT 10/07/2022 5:40 PM CDT Guillermina Gamez PA-C LAB - HEMATOLOGY OR DERABLES [facility] [address] [place] [id number], [facility] [phone] documented in this encounter Visit Diagnoses Diagnosis Small bowel obstruction, partial (HCC)- Primary Unspecified intestinal obstruction Abdominal pain, generalized Nausea and vomiting, unspecified vomiting type Small bowel obstruction, partial (HCC) Unspecified intestinal obstruction documented in this encounter Administered Medications Inactive Administered Medications - up to 3 most recent administrations Medication Order MAR Action Action Date Dose Rate Site 0.9% NaCl injection 1-10 mL 1-10 mL, Intracatheter, PRN, Other, peripheral line flush, Starting on Tue10/08/22 at 0508, Until Tue10/08/22 at 1703, Flush peripheral IV catheter with 1-10 mL of normal saline before and after medications and prn to clear blood from the line or to verify patency. 0.9% NaCl injection 3 mL 3 mL, Intracatheter, EVERY 8 HOURS, First dose on Tue10/08/22 at 0600, Until Discontinued, Flush peripheral IV catheter with 3 mL of normal saline every 8 hours. $ Given 10/08/2022 6:57 AM CDT 3 mL amLODIPine (Norvasc) tablet 10 mg 10 mg, Oral, DAILY, First dose on Tue10/08/22 at 0900, Until Discontinued $ Given 10/08/2022 8:47 AM CDT 10 mg dextrose 10 % IV bolus 12.5 g, at 468.75 mL/hr, Intravenous, PRN, Other, Bedside Glucose less than 70 mg/dL -If NOT able to eat and/or NPO and with IV Access, Starting on Tue10/08/22 at 0518, Until Tue10/08/22 at 170, If NOT able to eat and/or NPO [...] NPO and with IV Access, Starting on Tue10/08/22 at 0518, Until Tue10/08/22 at 170, If NOT able to eat and/or NPO [...] IV STAT NOTIFY PROVIDER OF HYPOGLYCEMIC EVENT. droPERidol (Inapsine) injection 1.25 mg 1.25 mg, Intravenous, ONCE, 1 dose, On Avani 10/07/22 at 1800 $ Given 10/07/2022 5:51 PM CDT 1.25 mg glucagon (Glucagen) injection 1 mg 1 mg, Subcutaneous, PRN, Bedside Glucose less than 70 mg/dL - If NOT able to eat and/or NPO and withOUT IV Access, Starting on Tue10/08/22 at 0518, Until Tue10/08/22 at 170, If NOT able to eat and/or NPO and NO IV Access: For Bedside glucose 54-69 mg/dL - Give 1 mg subcutaneous For Bedside Glucose LESS than 54 mg/dl - verify with a second bedside glucose (from a different site) - Give 1 mg subcutaneous Re-check and Re-treat blood glucose EVERY 10-25 [...] does not have swallowing difficulties, Starting on Tue10/08/22 at 0518, Until Tue10/08/22 at 1703, If able to eat and can swallow [...] does not have swallowing difficulties, Starting on Tue10/08/22 at 0518, Until Tue10/08/22 at 1703, If able to eat and is better [...] does not have swallowing difficulties, Starting on Tue10/08/22 at 0518, Until Tue10/08/22 at 1703, If able to eat and does not [...] PROVIDER OF HYPOGLYCEMIC EVENT. HYDROmorphone (Dilaudid) injection 0.4 mg 0.4 mg, Intravenous, NOW, 1 dose, On Tue10/08/22 at 0030, Patient preference for lesser PRN pain meds may be honored when the patient requests a less strong medication, a lower dose, or a less intrusive route of administration when the lesser drug, dose and route have been ordered for the patient. This patient request must be documented in the MAR. $ Given 10/08/2022 12:42 AM CDT 0.4 mg insulin lispro (HumaLOG;ADMelog) 100 UNIT/ML pen 0-6 Units 0-6 Units, Subcutaneous, EVERY 4 HOURS, First dose on Tue10/08/22 at 0800, Until Discontinued, DO NOT HOLD CORRECTION BOLUS [...] units and notify physician iopamidol (Isovue 370) 76 % contrast Intravenous, CONTRAST ONCE, Starting on Tue10/07/22 at 1828, Until Tue10/08/22 at 0838 $ Given - Contrast 10/07/2022 7:08 PM CDT 100 mL lisinopril (Prinivil; Zestril) tablet 10 mg 10 mg, Oral, DAILY, First dose on Tue10/08/22 at 0900, Until Discontinued $ Given 10/08/2022 8:48 AM CDT 10 mg pantoprazole EC (Protonix) tablet 40 mg 40 mg, Oral, DAILY, First dose on Tue10/08/22 at 0900, Until Discontinued, Do not crush, chew, or cut in half. $ Given 10/08/2022 8:49 AM CDT 40 mg documented in this encounter Active and Recently Administered Medications Times are shown in CDT. Scheduled Medication Order 10/06/2022 10/07/2022 10/08/2022 0.9% NaCl injection 3 mL(Linked Group 1) 3 mL, Intracatheter, EVERY 8 HOURS, First dose on Tue10/08/22 at 0600, Until Discontinued, Flush peripheral IV catheter with 3 mL of normal saline every 8 hours. 0657 ($ Given - Prov ider: Brian Wray RN)1400 (Due) amLODIPine (Norvasc) tablet 10 mg 10 mg, Oral, DAILY, First dose on Tue10/08/22 at 0900, Until Discontinued 0847 ($ Given - Prov ider: Aleta Arboleda RN) droPERidol (Inapsine) injection 1.25 mg (COMPLETED) 1.25 mg, Intravenous, ONCE, 1 dose, On Tue10/07/22 at 1800 1751 ($ Given - Provider: Nicolas Levi RN) HYDROmorphone (Dilaudid) injection 0.4 mg (COMPLETED) 0.4 mg, Intravenous, NOW, 1 dose, On Tue10/08/22 at 0030, Patient preference for lesser PRN pain meds may be honored when the patient requests a less strong medication, a lower dose, or a less intrusive route of administration when the lesser drug, dose and route have been ordered for the patient. This patient request must be documented in the MAR. 004 ($ Given - Prov ider: Debi Estrada RN) insulin lispro (HumaLOG;ADMelog) 100 UNIT/ML pen 0-6 Units 0-6 Units, Subcutaneous, EVERY 4 HOURS, First dose on Tue10/08/22 at 0800, Until Discontinued, DO NOT HOLD CORRECTION BOLUS [...] = give 6 units and notify physician 0846 (Not Administer ed - Provider: Aleta Arboleda RN - Reason: Patient Condition)1452 (Not Administered - Provider: Rashida Solorio RN - Reason: Per Administration Instructions - Comment: bg is lower than parameters) iopamidol (Isovue 370) 76 % contrast (CANCELED) Intravenous, CONTRAST ONCE, Starting on Tue10/07/22 at 1828, Until Tue10/08/22 at 0838 1908 ($ Given - Contrast - Provider: Steffany Avilez, RT(R)CT) lisinopril (Prinivil; Zestril) tablet 10 mg 10 mg, Oral, DAILY, First dose on Tue10/08/22 at 0900, Until Discontinued 0848 ($ Given - Prov ider: Aleta Arboleda RN) pantoprazole EC (Protonix) tablet 40 mg 40 mg, Oral, DAILY, First dose on Tue10/08/22 at 0900, Until Discontinued, Do not crush, chew, or cut in half. 0849 ($ Given - Prov ider: Aleta Arboleda RN) pravastatin (Pravachol) tablet 40 mg 40 mg, Oral, EVERY EVENING, First dose on Tue10/08/22 at 1700, Until Discontinued PRN Medication Order 10/06/2022 10/07/2022 10/08/2022 0.9% NaCl injection 1-10 mL(Linked Group 1) 1-10 mL, Intracatheter, PRN, Other, peripheral line flush, Starting on Tue10/08/22 at 0508, Until Tue10/08/22 at 170, Flush peripheral IV catheter with 1-10 mL of normal saline before and after medications and prn to clear blood from the line or to verify patency. dextrose 10 % IV bolus(Linked Group 2) 12.5 g, at 468.75 mL/hr, Intravenous, PRN, Other, Bedside Glucose less than 70 mg/dL -If NOT able to eat and/or NPO and with IV Access, Starting on Tue10/08/22 at 0518, Until Tue10/08/22 at 170, If NOT able to eat and/or NPO [...] EVENT. dextrose 10 % IV bolus(Linked Group 2) 25 g, at 937.5 mL/hr, Intravenous, PRN, Other, Bedside Glucose less than 70 mg/dL -If NOT able to eat and/or NPO and with IV Access, Starting on Tue10/08/22 at 0518, Until Tue10/08/22 at 170, If NOT able to eat and/or NPO [...] NPO and withOUT IV Access, Starting on Tue10/08/22 at 0518, Until Tue10/08/22 at 1703, If NOT able to eat and/or NPO and NO IV Access: For Bedside glucose 54-69 mg/dL - Give 1 mg subcutaneous For Bedside Glucose LESS than 54 mg/dl - verify with a second bedside glucose (from a different site) - Give 1 mg subcutaneous Re-check and Re-treat blood glucose EVERY 10-25 [...] does not have swallowing difficulties, Starting on Tue10/08/22 at 0518, Until Tue10/08/22 at 1703, If able to eat and can swallow [...] does not have swallowing difficulties, Starting on Tue10/08/22 at 0518, Until Tue10/08/22 at 1703, If able to eat and is better [...] does not have swallowing difficulties, Starting on Tue10/08/22 at 0518, Until Tue10/08/22 at 1703, If able to eat and does not [...] for choices). NOTIFY PROVIDER OF HYPOGLYCEMIC EVENT. Linked Groups Order Group 1: SALINE LOCK, INSERT AND MAINTAIN (CANCELED) Routine, CONTINUOUS, Starting on Tue10/08/22 at 0515, Until Specified, New collection, Task Completed: Yes And 0.9% NaCl injection 3 mLJump to med 3 mL, Intracatheter, EVERY 8 HOURS, First dose on Tue10/08/22 at 0600, Until Discontinued, Flush peripheral IV catheter with 3 mL of normal saline every 8 hours. And 0.9% NaCl injection 1-10 mLJump to med 1-10 mL, Intracatheter, PRN, Other, peripheral line flush, Starting on Tue10/08/22 at 0508, Until Tue10/08/22 at 1703, Flush peripheral IV catheter with 1-10 mL of normal saline before and after medications and prn to clear blood from the line or to verify patency. Group 2: dextrose 10 % IV bolusJump to med 12.5 g, at 468.75 mL/hr, Intravenous, PRN, Other, Bedside Glucose less than 70 mg/dL -If NOT able to eat and/or NPO and with IV Access, Starting on Tue10/08/22 at 0518, Until Tue10/08/22 at 1703, If NOT able to eat and/or NPO [...] NPO and with IV Access, Starting on Tue10/08/22 at 0518, Until Tue10/08/22 at 1703, If NOT able to eat and/or NPO [...] EVENT. documented in this encounter Care Teams Director Of Enrollment Relationship Specialty Start Date End Date Pankaj Rosenberg MD [address] [facility] [address] [place] [address] PCP - General 10/06/21 documented as of this encounter
--- OUTSIDE RECORDS SUMMARY | 2024-05-13 10:43 | XMS_ITS | Encounter Summary ---
Author Organization [facility] Address [address] [place] [address] Care Team Providers Care Decontamination Technician Name Role Phone Maria Alejandra Benjamin MD Primary Care Provider Reason for Visit * Auth/Cert Specialty Diagnoses / Procedures Referred By Horacio t Referred To Contact Diagnoses Small Bowel Obstruction Referral ID Status Reason Start Date Expiration Date Visits Re quested Visits Authorized [id number] 1 1 Encounter Details Date Type Department Care Team (Late st Contact Info) Description 09/17/2021 9:40 AM CDT - 09/17/2021 12:15 PM CDT Surgery [facility] [address] [place] [address] Cindi Cesar MD [address] [place] [address] LAPAROTOMY EXPLORATORY, BOWEL RESECTION, ENTROLYSIS Surgery Details Date/Time Status Location OR Service Patient Class Case Class Case Type Trauma Case? 09/17/2021 9:40 AM Posted [facility] OR OR 02 General Inpatient Panel 1 Procedure LRB Anes Op Region Wound Class Comments LAPAROTOMY EXPLORATORY, ERNIE L RESECTION, ENTROLYSIS N/A General Clean Contaminated Surgeon Surgeon Role Service Panel Cindi Cesar MD Primary General 1 Maria A Serna MD Resident - Assisting 1 documented in this encounter Social History Tobacco Use Types Packs/Day Years Used Date Smoking Tobacco: Never Smokeless Tobacco: Former Chew Quit: 09/15/2020 Tobacco Cessation:Counseling Given: No Alcohol Use Standard Drinks/Week Comments Yes 0 [...] money to buy more. Never true 09/17/19 Within the past 12 months, t he [...] Sign Reading Time Taken Comments Blood Pressure 108/81 09/17/2021 9:53 AM CDT Pulse 135 09/17/2021 9:53 AM CDT Temperature 36.8 ??C (98.3 ??F) 09/17/2021 9:30 AM CD T Respiratory Rate 12 09/17/2021 9:53 AM CDT Oxygen Saturation 95% 09/17/2021 9:53 AM CDT Inhaled Oxygen Concentration - - Weight 118 kg (260 lb 2.3 oz) 09/15/2021 6:22 PM CDT Height 180.3 cm (5' 11 ) 09/15/2021 6:22 PM CDT Body Mass Index 36.28 09/15/2021 6:22 PM CDT documented in this encounter Functional [...] No 09/15/2021 documented as of this encounter Discharge Summaries * Akhil Potter MD - 09/22/2021 7:23 AM CDT Images from the original note were not included. Physician Discharge Summary Patient ID: Chuck Cannon [id number] 26 year old male 1995 Admit date: 09/15/2021 Discharge date and time: 09/22/2021 Admitting Physician: Cindi Cesar MD Discharge Physician: Ananda Gilbert DO Admitting Diagnosis: small bowel obstruction Discharge Diagnoses: same Admission Condition: stable Discharged Condition: fair Indication for Admission: Chuck Cannon is a 26 year old male with PMHx of HTN, HLD, T2DM, GERD, gastroschisis, and two small bowel obstructions s/p small bowel resections prior to age 4 who was transferred to [facility] on OSH on 09/15 for evaluation of small bowel obstruction requiring NG decompression for management of symptoms, with OSH SBFT revealing no contrast in colon after 4 hours but some after 8 hours. He was transferred to [facility] for further evaluation and management. Hospital Course: Patient was admitted to ACS service upon arrival at which time he was found to be afebrile and hemodynamically stable with non-peritonitic abdominal exam, so nonoperative management with NG to LIWS was initiated with slight improvement of symptoms. However, patient became nauseous with clamp trial of NG and failed to have return of bowel function, with repeat SBFT on HD 2 without passage of contrast into colon. He was subsequently escalated to operative management of his SBO. 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 There were no intraoperative complications, and the patient was transferred to the floor after initial recovery in the PACU. Post-operatively, patient initially required Dilaudid PUBLIC WORKS LABORER for pain control. This was discontinued on POD 3, with pain well-controlled on PO medications by time of discharge. He was voiding spontaneously with adequate UOP throughout admission. He had return of bowel function on POD 4 at which time his diet was advanced, and he tolerated a regular diet without nausea or emesis. He received evaluation by PT and OT who noted independence in ambulation and ADLs. He was discharged to home in stable condition and will follow up in ACS clinic in 2 weeks. Consults: PT, OT, Regional and Acute Pain Service, Sap Technical Developer Procedures: 09/17/21 - exploratory laparotomy, small bowel resection, and enterolysis Significant Diagnostic Studies: 09/17/21 - FL SMALL BOWEL SERIES High-grade or complete small bowel obstruction. 09/15/21 - CT ABDOMEN PELVIS W CONTRAST 1.Findings concerning for partial small bowel obstruction -- Specifically, small bowel loops are dilated up to 3.7 cm with a narrow caliber transition point at midline anteriorly. There is contrast in the colon. The cecum is located to the left of midline which could be due to malrotation and/or post surgical. Correlate with history of prior abdominal surgeries. Discharge Exam: GEN: Resting in bed. No acute distress. HEENT: Normocephalic. Atraumatic. CV: Regular rate and rhythm. RESP: Unlabored respirations on room air. Symmetric chest rise. ABD: Soft, nondistended, minimally tender to palpation. No rebound, guarding, or rigidity. Midline incision well-approximated with goyo without surrounding erythema, induration, bleeding, or discharge. EXT: Warm and well-perfused. No lower extremity edema. NEURO: Alert and oriented. Moves all extremities. PSYCH: Normal speech and affect. Disposition: Home Patient Instructions: Medication List START taking these medications Alcohol Prep 70 % USE 1 SWAB TO CLEAN SKIN TWICE DAILY BEFORE TESTING ONETOUCH DELICA PLUS 33G EXTRA FINE LANCET USE 1 LANCET TO PRICK FINGER TWICE DAILY BEFORE TESTING OneTouch Verio Reflect w/Device Kit Use 1 Units 2 times daily USE MACHINE TO CHECK BLOOD SUGAR TWICE DAILY OneTouch Verio test strip Generic drug: blood glucose USE 1 STRIP TO CHECK BLOOD SUGAR TWICE DAILY Reasons: FOR DIABETES EDUCATION ASK your doctor about these medications amLODIPine 10 MG tablet Commonly known as: Norvasc atorvastatin 20 MG tablet Commonly known as: Lipitor cetirizine 5 MG chew tablet Commonly known as: ZyrTEC * lisinopril 20 MG tablet Commonly known as: Prinivil; Zestril * lisinopril 40 MG tablet Commonly known as: Prinivil; Zestril loratadine 10 MG tablet Commonly known as: Claritin montelukast 10 MG tablet Commonly known as: Singulair omeprazole 40 MG capsule Commonly known as: PriLOSEC pravastatin 40 MG tablet Commonly known as: Pravachol SALINE NASAL SPRAY NA SITagliptin 25 MG tablet Commonly known as: Januvia * This list has 2 medication(s) that are the same as other medications prescribed for you. Read thedirections carefully, and ask your doctor or other care provider to review them with you. Where to Get Your Medications These medications were sent to [facility], [facility] - [address] [facility] [address] [place] [address] ?? Alcohol Prep 70 % ?? ONETOUCH DELICA PLUS 33G EXTRA FINE LANCET ?? OneTouch Verio Reflect w/Device Kit ?? OneTouch Verio test strip Follow-up Information Maria Alejandra Benjamin MD . Specialty: Family Medicine Geriatric Medicine Why: follow up with pcp in 1-2 weeks Contact information: [address] [place] [address] Discharge Instructions None Signed: Akhil Potter MD General Surgery PGY-3 09/22/2021 3:55 PM documented in this encounter Discharge Instructions * Discharge Instructions* Elvia Hawkins, JOINT CUTTER-PUBLIC WORKS LABORER - 09/22/2021 7:27 AM CDT Images from the original note were not included. [facility] GENERAL SURGERY PATIENT DISCHARGE INSTRUCTIONS Date of admission: 09/15/2021 Date of discharge: 09/22/21 The name of your operation is: Exploratory laparotomy, bowel resection with anastomosis, enterolysis The name of your surgeon is: Acute Care Surgery Service Summary of Specific instructions for CHUCK CANNON Diet: Regular diet as tolerated, high in protein and green leafy vegetables Activity: No lifting anything more than 10 pounds for 4 weeks minimum. You surgeon my give you morespecific activity instructions based on your surgery. Sutures or Goyo: We will remove your sutures or goyo in clinic if you have them. Drains: You will need to empty and record your drainage output daily if you have one. Bathing: You may shower if you keep your dressings clean and dry. No swimming, hot tubs, baths, or submerging your wound under water for 2 weeks. Followup: Call your surgeon's office to schedule a follow-up appointment if one wasn't make for you prior to your discharge. The number is [phone]. Option 1 for General Surgery. Acute Care Surgery Patients: [facility]- [address] [place] [address] During Business Hours Questions or Concerns (Adult Patients) 1. Please call the general surgery office at [phone] Outside Business Hours Questions or Concerns (Adult Patients) 1. Please call [facility] Optical Dispenser at [phone] and have the General Surgery marketing consultant resident paged. Medications: You have been provided a prescription for: Medication List START taking these medications Alcohol Prep 70 % USE 1 SWAB TO CLEAN SKIN TWICE DAILY BEFORE TESTING cyclobenzaprine 10 MG tablet Commonly known as: Flexeril Take 1 (one) tablet by mouth 3 times daily HYDROcodone-acetaminophen 7.5-325 MG tablet Commonly known as: [place] Take 1 (one) tablet by mouth every 6 hours as needed for Pain lidocaine 5 % patch Commonly known as: Lidoderm Apply 1 (one) patch to skin every 24 hours ONETOUCH DELICA PLUS 33G EXTRA FINE LANCET USE 1 LANCET TO PRICK FINGER TWICE DAILY BEFORE TESTING OneTouch Verio Reflect w/Device Kit Use 1 Units 2 times daily USE MACHINE TO CHECK BLOOD SUGAR TWICE DAILY OneTouch Verio test strip Generic drug: blood glucose USE 1 STRIP TO CHECK BLOOD SUGAR TWICE DAILY Reasons: FOR DIABETES EDUCATION polyethylene glycol 3350 17 GM/SCOOP powder Commonly known as: Miralax Take 17 (seventeen) g by mouth once daily traMADol HCl 100 MG Tabs Take 100 mg by mouth every 8 hours CHANGE how you take these medications lisinopril 40 MG tablet Commonly known as: Prinivil; Zestril What changed: Another medication with the same name was removed. Continue taking this medication, and follow the directions you see here. CONTINUE taking these medications amLODIPine 10 MG tablet Commonly known as: Norvasc cetirizine 5 MG chew tablet Commonly known as: ZyrTEC loratadine 10 MG tablet Commonly known as: Claritin montelukast 10 MG tablet Commonly known as: Singulair omeprazole 40 MG capsule Commonly known as: PriLOSEC pravastatin 40 MG tablet Commonly known as: Pravachol SALINE NASAL SPRAY NA SITagliptin 25 MG tablet Commonly known as: Januvalejandra STOP taking these medications atorvastatin 20 MG tablet Commonly known as: Lipitor Where to Get Your Medications These medications were sent to [facility], [facility] - [address] [facility] [address] [place] [address] Alcohol Prep 70 % cyclobenzaprine 10 MG tablet HYDROcodone-acetaminophen 7.5-325 MG tablet lidocaine 5 % patch ONETOUCH DELICA PLUS 33G EXTRA FINE LANCET OneTouch Verio Reflect w/Device Kit OneTouch Verio test strip polyethylene glycol 3350 17 GM/SCOOP powder traMADol HCl 100 MG Tabs General Your full recovery will take some time. This handout covers some common questions and concerns. Diet: As long as you are eating a balanced diet, there are no foods that will speed up or delay your recovery. Eat smaller, more frequent meals if you find yourself feeling full quickly. During your first few days at home, make sure you drink enough fluids. Pain Control When you leave the hospital, you should have a prescription for pain medication. Have it filled at a pharmacy near your home. Some patients experience nausea and/or vomiting from certain narcotics. If you get any of these side effects, call the office at the number listed above or call the [facility] hospital ([phone]) and ask for the Acute Care Surgery Resident marketing consultant. A prescription for a different narcotic can be called in to your pharmacist. (Please have the number of your pharmacy available). You may also try regular Tylenol. Medication refills can be obtained from the office during business hours (Tuesday through Tuesday, 8:00 a.m. to 2:00 p.m.). Constipation is a frequent side effect of narcotic use. Please see instructions below (Bowel Movements) for ways to help prevent constipation. Bowel Movements Your bowel movements may be irregular for several weeks. If you go for more than a couple of days without having a bowel movement, you may try to relieve the constipation by drinking warm prune juice, eating prunes, apples, apricots, raisins, or bran and water, or by taking a mild laxative, such asmilk of magnesia. Bowel Regimen: Goal to keep your bowels regular. -While you are taking narcotics, you need to take over the counter medication to help with your bowel movements -docusate sodium (Colace), polyethylene glycol (Miralax), Milk of Magnesia and/or Senna are examples -Take suppository or enema if needed. Okay to take generic brand -Hold for diarrhea Activity It is common after you first [...] the hospital. The area around your incision becomes red, increasingly tender, or begins to drain pus. Small amounts of blood-tinged fluid are common and are no cause for concern. Your temperature goes above 101.4??F (38.5??C). You have vomiting that lasts more than one day. You have severe diarrhea lasting more than three days. [address] not drive while on narcotic pain medication. * Attachments The following attachments cannot be sent through Care Everywhere. * Bowel Obstruction (Inpatient Care) (Cymro) documented in this encounter Medications at Time [...] TESTING 100 Each 09/16/2021 06/29/2022 blood glucose (LifeWaveUCH VERIO) test stripIndications:FOR DIABETES EDUCATION USE 1 STRIP TO CHECK BLOOD SUGAR TWICE DAILY Reasons: FOR DIABETES EDUCATION 100 strip 09/16/2021 06/29/2022 Blood Glucose Monitoring Suppl (ArgantealTOUCH VERIO REFLECT) w/Device KIT Use 1 Units 2 times daily USE MACHINE TO CHECK BLOOD SUGAR TWICE DAILY 1 kit 09/16/2021 06/29/2022 cetirizine (ZYRTEC) 5 MG chew tablet Take 5 mg by mouth once daily 03/21/2022 cyclobenzaprine (FLEXERIL) 10 MG tablet Take 1 (one) tablet by mouth 3 times daily 30 tablet 09/22/2021 03/21/2022 HYDROcodone-acetaminop hen (NORCO) 7.5-325 MG tablet Take 1 (one) tablet by mouth every 6 hours as needed for Pain 12 tablet 09/22/2021 03/21/2022 Lancets (LifeWaveUCH DELICA PLUS 33G EXTRA FINE LANCET) USE 1 LANCET TO PRICK FINGER TWICE DAILY BEFORE TESTING 100 Each 09/16/2021 10/08/2022 lidocaine (LIDODERM) 5 % patch Apply 1 (one) patch to skin every 24 hours 12 patch 09/22/2021 03/21/2022 lisinopril (PRINIVIL; ZESTRIL) 40 MG tablet Take 1 (one) tablet by mouth once daily 08/21/2021 07/28/2022 loratadine (CLARITIN) 10 MG tablet Take 10 mg by mouth once daily as needed 09/14/2021 03/21/2022 omeprazole (PRILOSEC) 40 MG capsule Take 40 mg by mouth once daily 08/21/2021 03/21/2022 polyethylene glycol 3350 (MIRALAX) 17 GM/SCOOP powder Take 17 (seventeen) g by mouth once daily 238 g 09/22/2021 06/29/2022 traMADol 100 MG TABS Take 100 mg by mouth every 8 hours 12 tablet 09/22/2021 03/21/2022 documented as of this encounter Progress Notes * Emiliano Mcdonald CPhT - 09/22/2021 9:49 AM CDT MEDICATION TO BEDSIDE DELIVERY: COMPLETE Medication to Bedside delivery was completed for Chuck Cannon. ??? A total of 5 prescriptions were delivered to the patient for discharge. ??? Medications were given to NURSE (ANGELINA) ??? This delivery included a controlled substance: YES, given to NURSE ANGELINA ??? This delivery included medication that should be stored in the fridge: NO Thank you for allowing the outpatient pharmacy to participate in the care of Chuck Cannon. If you have any questions, please contact the outpatient pharmacy at [phone]. Emiliano Mcdonald [facility] at [address], [address] Floor [place], [place] [address] Hours of Operation Tuesday - Tuesday: 8:00am to 6:00pm Tuesday: 9:00am to 1:00pm Epic: [facility] *Ensure the patient and clinic's nearby ZIP codes box is unchecked* * Virginia López RN - 09/22/2021 9:49 AM CDT Discharge To Home Discharge Date: 09/22/2021 Transportation at time of Discharge: Patient arranged Comments: Patient discharged home no further case management needs. Virginia López RN Case credit relationship manager: [phone] 09/22/2021 * Nicole Shipman PTA - 09/22/2021 8:20 AM CDT [facility] Physical Medicine and Rehabilitation PhysicalTherapy Progress Note Patient: Chuck Cannon Med Record Number: [id number] Date of : 1995 Age: [age] year old Face Mask: Therapist and Debi REDDY wore a surgical mask and eye protection Pt wore a surgical mask [facility] Discharge Recommendation: Patient should be able to return home when medically cleared by physicianteam. Therapy will continue to treat patient while in hospital. See current amount of assist neededbelow. Subjective: I am discharging today. I am waiting for my medications to leave . Patient currently using no assistive device. Mental Status: Alert and oriented x 4 and followed 100% of commands. He was agreeable to PT. At start of therapy session, patient found in bed, with no alarm and mom at bedside. Pain: Patient has no pain at this time Follow-up for pain: No follow-up for pain indicated and patient agreed to proceed with treatment Weight Bearing Status: no restrictions Mobility: Rolling: Independent Supine to Sit:Independent Sit to Supine: Independent Sit to Stand:Independent Bed to Chair: Independent Gait: Device:none; gait belt and non skid socks applied Assistance: Independent Distance: 450' x 1 Deviations: Slow rani with minimal lateral sway noted Balance: Static Sitting: good Dynamic sitting: good Static Standing: good Dynamic Standing: good Stairs : Ascend/descend 5 steps with 1 rail independent Vitals: (*Assess the 3 levels of oxygen saturations both for room air and 02 unless rest on room air is 88% or less). Rest BP: 120/94 HR: 84 Sp02 96% Room Air Activity Tolerance: Patient's activity tolerance: good Treatment/therapeutic Exercise: Bed mobility, transfer and gait/stair training EDUCATION: While performing PT, Patient was instructed in:Functional mobility training/weight bearing status and Safety awareness/fall precaution Patient demonstrated Good understanding of instructions given. GOALS: Short Term Goals: Goal formation??with patient Patient will perform bed mobility:??Independent MET Patient will transfer sit to/from stand:??Independent MET Patient will transfer bed to/from chair:??Independent MET Patient will ambulate??200??feet with Independent??and appropriate AD MET Patient will ascend/descend??5??steps: Stand By Assist MET Patient will perform home exercise program independently ?? Container Filler Goal(s): Patient to be independent/baseline with functional mobility and self care and be able to safely discharge to prior level of care Update Treatment Plan: Continue PT per POC If patient is discharged from the facility, this note serves as a discharge note if further physical therapy visits did not occur. Following therapy session, patient left in patient bedside chair, with call light within reach, with family in room and with RN, Angelina aware. * Dorothea Hartman OT - 09/21/2021 3:40 PM CDT [facility] Physical Medicine and Rehabilitation Occupational Therapy Progress Note/DC summary Patient: Chuck Cannon [facility] Record Number: [id number] Date of : 1995 Age: [age] year old Face Mask: donned mask. Tech: n/a Discharge Recommendation: Patient should be able to return home when medically cleared by physicianteam. Pt demo's independence with functional mobility and ADL tasks; no further skilled OT required. Precautions: no restrictions Subjective: Lets go for another walk. At start of therapy session, patient found in patient bedside chair and with no alarm . Pain: Patient has very mild pain in abdomen; agreeable to participate Follow-up for pain: No follow-up for pain indicated and patient agreed to proceed with treatment Activities of Daily Living Feeding:NT Grooming/Bathing: not tested pt declines need; discussed bathing routine with pt. Pt states understanding and denies any concerns. Upper Extremity Dressing: not tested Lower Extremity Dressing: Independent to doff and don clean socks Toileting/Transfers: not tested denies need Mobility: Assist device: gait belt Rolling: not tested Supine to/from Sit:not tested Sit to/from Stand: Independent Bed to/from Chair: Independent Functional Mobility: pt completes functional household distance in room and hallway with independence to SBA. Balance: Static Sitting: good Dynamic Sitting: good Static Standing: good Dynamic Standing: good Observations: VSS throughout; no signs of distress noted. Activity tolerance: good Cognitive/Perceptual: A&Ox4, 100% command follow. Pt is able to make needs known. Demo's good insight and safety. Treatment/Therapeutic Exercise: Treatment session this date focused on ADL training Functional transfer training Endurance training Bed mobility Safety awareness EDUCATION: While performing mobility and self care, Patient was instructed in: Functional mobility training/weight bearing status, Safety awareness/fall precaution and Self care training Presented to patient who demonstrates Good understanding of instructions given. Equipment Issued: none Update Treatment Plan/Goals : DC from further OT; independent Short Term Goals: INDEPENDENT, ALL GOALS MET. DC OT Patient will perform grooming standing at sink Independently Patient will perform lower extremity dressing Independently Patient will transfer to toilet Independently Residential Goal:Patient to be independent/baseline with functional mobility and self care and be able to safely discharge to prior level of care If patient is discharged from the facility, this note serves as a discharge note if further occupational therapy visits did not occur. Following therapy session, patient left in patient bedside chair, with call light within reach and with family in room. * Kenzie tSone, PT - 09/21/2021 1:11 PM CDT [facility] Physical Medicine and Rehabilitation PhysicalTherapy Progress Note Patient: Chuck Cannon Med Record Number: [id number] Date of : 1995 Age: [age] year old PT wears surgical mask, goggles, gloves. Discharge Recommendation: Patient should be able to return home when medically cleared by physicianteam. Therapy will continue to treat patient while in hospital. See current amount of assist neededbelow. Subjective: Yeah, they told me I needed to walk today. Agreeable to therapy session with education. Patient currently using no assistive device. Mental Status: Alert, oriented x4. 100% CF. At start of therapy session, patient found in bed and with no alarm . Pain: Patient has 4/10 pain in abdomen Follow-up for pain: No follow-up for pain indicated and patient agreed to proceed with treatment; pt had pain meds prior to treatment Weight Bearing Status: WBAT Mobility: Rolling: Stand By Assist Supine to Sit:Stand By Assist Sit to Supine: not tested Sit to Stand:Stand By Assist Bed to Chair: Stand By Assist Gait: Device:none and gait belt, non slip socks Assistance: Stand By Assist Distance: 450ft Deviations: Pt demos occasional decreased step length/height B LE. Able to tolerate increased distance of ambulation this session. Balance: Static Sitting: good Dynamic sitting: good Static Standing: good Dynamic Standing: good minus Stairs : NT, pt declines at this time Vitals: (*Assess the 3 levels of oxygen saturations both for room air and 02 unless rest on room air is 88% or less). Rest BP: 133/95 HR: 95 Sp02 Sp02 98% Room Air L O2 RA Ex/Gait/Activity Without 02 BP: HR: Sp02 Room Air Ex/Gait/Activity With 02 BP: HR: Sp02 L O2 Post Activity BP: HR: Sp02 Sp02 L O2 Room Air Observations: VSS throughout session. Pt without any SOB, dizziness, or signs/symptoms of distress. Activity Tolerance: Patient's activity tolerance: good Treatment/therapeutic Exercise: Pt instructed in log roll technique to assist with coming to sitting EOB. He is able to complete without assist from therapist. Pt stands and ambulates without AD. He tolerates increased distance of ambulation this session; transfers to recliner at end of session. Ptperforms seated knee extension, hip flexion, APs B LE when in chair. Educated on taking walk later with family to continue to progress gait distance and technique. EDUCATION: While performing PT, Patient was instructed in:Functional mobility training/weight bearing status, Energy conservation, Safety awareness/fall precaution, Home exercise program and Discharge plan Patient demonstrated Good understanding of instructions given. GOALS: Short Term Goals: Goal Formation With patient Patient will perform bed mobility: Independent Patient will transfer sit to/from stand: Independent Patient will transfer bed to/from chair: Independent Patient will ambulate 200 feet with Independent and appropriate AD Patient will ascend/descend 5 steps: Stand By Assist Patient will perform home exercise program independently ?? Container Filler Goal(s): Patient to be independent/baseline with functional mobility and self care and be able to safely discharge to prior level of care Update Treatment Plan: Continue with current PT plan of care to improve safety and functional mobility, especially focusing on progressing gait distance, stairs. If patient is discharged from the facility, this note serves as a discharge note if further physical therapy visits did not occur. Following therapy session, patient left in patient bedside chair, with call light within reach, with family in room and with Angelina HURTADO aware. * Angelina Garcia RN - 09/21/2021 11:25 AM CDT Problem: Pain/Discomfort Goal: Patient exhibits [...] found in the flowsheet documentation) Outcome: Progressing Problem: General Goal: STG-Patient will Description: Complete lower body dressing independently Outcome: Progressing Problem: Mobility Goal: LTG - Patient will ambulate community distance Outcome: Progressing * Angelina Ingram DO - 09/21/2021 9:06 AM CDT Regional & Acute Pain Service Progress Note Admit Date: 09/15/2021 Hospital Day: 7 The patient is a 26 year old male who is s/p ex lap, lysis of adhesions on 09/17/2021. The patient received a pre-op epidural for post-op pain management. Subjective: [employer] discontinued overnight last night. Patient reporting 8/10 pain control with scheduled oxycodone, reports that he has taken oxycodone in the past without significant improvement in pain. Amenable to trying tramadol this morning when discussed. Otherwise tolerating clears without issue. Pain Level: 3-4 moderate pain Sedation: Alert Activity Level: as tolerates Objective: Physical Exam: BP 134/97 Pulse 75 Temp 98.2 ??F (36.8 ??C) Resp 16 Ht 1.803 m (5' 11 ) Wt 118 kg (260 lb 2.3 oz) SpO2 98% BMI 36.28 kg/m2 Constitutional: alert, cooperative, no distress Lung: CTAB Heart: RRR Abdomen: soft, non-tender Skin: Skin color, texture, turgor normal. Extremity: normal, atraumatic, no cyanosis or edema Current Facility-Administered Medications Medication Dose Route Frequency Provider Last Rate Last Admin ??? *Hold/Avoid Anticoagulants and Antiplatelet agents Other 799 and 1999 Angelina Ingram DO ??? *Hold/Avoid Medication Other 799 and 1999 Angelina Ingram DO ??? 0.9% NaCl injection 3 mL 3 mL Intracatheter q8h Akhil Potter MD 3 mL at 09/20/216 And ??? 0.9% NaCl injection 1-10 mL 1-10 mL Intracatheter PRN Akhil Potter MD ??? acetaminophen (Tylenol) tablet 650 mg 650 mg Oral q6h Akhil Potter MD 650 mg at 09/21/21 0114 ??? bisacodyl (Dulcolax) suppository 10 mg 10 mg Rectal q8h PRN Ananda Gilbert DO ??? cyclobenzaprine (Flexeril) tablet 10 mg 10 mg Oral TID PRN Akhil Potter MD 10 mg at 09/21/21 0805 ??? dextrose 10 % IV bolus 12.5 g Intravenous PRN Isaiah Barnye MD Or ??? dextrose 10 % IV bolus 25 g Intravenous PRN Isaiah Barney MD ??? enoxaparin (Lovenox) injection 40 mg 40 mg Subcutaneous QDAY Akhil Potter MD 40 mg at 09/21/21 08 ??? famotidine (Pepcid) injection 20 mg 20 mg Intravenous BID Akhil Potter MD 20 mg at 09/21/21 08 ??? glucagon (Glucagen) injection 1 mg 1 mg Intramuscular PRN Isaiah Barney MD ??? glucose (Diabetic Use) (Dex4 Glucose) oral liquid Oral PRN Isaiah Barney MD ??? glucose (Diabetic Use) oral gel Oral PRN Isaiah Barney MD ??? glucose chew tablet 4 tablet 16 g Oral PRN Isaiah Barney MD ??? hydrALAZINE (Apresoline) injection 10 mg 10 mg Intravenous q4h PRN Akhil Potter MD ??? HYDROmorphone (Dilaudid) injection 0.1 mg 0.1 mg Intravenous q2h PRN Isaiah Barney MD Or ??? HYDROmorphone (Dilaudid) injection 0.2 mg 0.2 mg Intravenous q2h PRN Isaiah Barney MD 0.2 mg at 09/17/21 0808 ??? insulin lispro (HumaLOG;ADMelog) 100 UNIT/ML pen 0-6 Units 0-6 Units Subcutaneous q4h Isaiah Barney MD 1 Units at 09/17/212013 ??? ketorolac (Toradol) injection 30 mg 30 mg Intravenous q6h PRN Akhil Potter MD 30 mg at 09/21/21 08 ??? labetalol (Normodyne; Trandate) injection 10 mg 10 mg Intravenous q4h PRN Akhil Potter MD ??? lidocaine (Lidoderm) 5 % patch 1 patch 1 patch Transdermal q24h Tod Ingram MD 1 patch at09/20/212050 ??? lidocaine viscous (Xylocaine) 2 % solution 5 mL 5 mL Mouth/Throat TID PRN Akhil Potter MD5 mL at 09/16/21 1119 ??? montelukast (Singulair) tablet 10 mg 10 mg Oral AT BEDTIME Isaiah Barney MD 10 mg at 09/20/212050 ??? naloxone (Narcan) injection 0.2 mg 0.2 mg Intravenous PRN Angelina Ingram, DO ??? ondansetron (Zofran) injection 4 mg 4 mg Intravenous q6h PRN Akhil Potter MD 4 mg at 09/16/212000 ??? oxyCODONE (immediate release) (Roxicodone) tablet 5 mg 5 mg Oral q6h PRN Angelina Ingram, DO Or ??? oxyCODONE (immediate release) (Roxicodone) tablet 10 mg 10 mg Oral q6h PRN Angelina Ingram, DO ??? polyethylene glycol 3350 (Miralax) packet 17 g 17 g Oral QDAY PRN Akhil Potter MD ??? potassium chloride ER (Klor-Con M) tablet 40 mEq 40 mEq Oral QDAY WITH BREAKFAST Akhil Potter MD 40 mEq at 09/21/21804 ??? pravastatin (Pravachol) tablet 40 mg 40 mg Oral AT BEDTIME Isaiah Barney MD 40 mg at 09/20/212050 ??? prochlorperazine (Compazine) injection 10 mg 10 mg Intravenous q6h PRN Isaiah Barney MD 10 mg at 09/17/21 08 ??? senna-docusate (Senokot-S) tablet 1 tablet 1 tablet Oral QDAY Akhil Potter MD 1 tablet at09/21/21 0805 ??? throat lozenge 1 lozenge 1 lozenge Oral q2h PRN Akhil Potter MD ??? traMADol (Ultram) tablet 100 mg 100 mg Oral q8h Angelina Ingram DO Lab Data: Recent Labs Component Name 09/21/21 02309/20/21 0935 09/19/21 0337 09/18/21 0306 09/17/21 1933 WBC 10.1 9.9 7.8 10.7* 15.3* HGB 10.7* 11.3* 12.0 12.6 13.5 HCT 32.3* 34.4* 37.0 38.5 40.5 Recent Labs Component Name 09/21/2123409/20/2135 09/19/2133609/18/21 0306 09/17/21 0228 NA 141 141 140 139 138 CL 103 103 105 108* 103 CO2 27 25 23 22 20* BUN 5* 5* 9 11 16 CREATININE 0.58* 0.60* 0.73 0.84 0.91 CALCIUM 9.3 9.3 8.6 9.1 10.1 PHOS 4.1 3.7 2.6* 3.4 4.5 Pain Management Meds: Adjuvants: toradol 30 q6h PRN, tylenol 650mg q6h, flexeril 10mg TID PRN, lidocaine patches, dilaudid 0.1mg q2hPRN or dilaudid 0.2mg q2h PRN Assessment: Pain Relief/Comfort Goal Met: Yes Anticoagulant Use Checked: Yes Plan: - Recommend starting tramadol 100mg q8h - continue oxycodone 5mg/10mg as needed for additional pain - continue dilaudid as written for breakthrough pain despite maximum oral therapy - Continue to encourage bowel regimen and early ambulation as tolerates. - Encourage incentive spirometery The patient was seen and the plan was discussed with my attending Dr. Aguilar. Angelina Ingram DO Anesthesiology and Critical Care PGY-2 09/21/2021 9:09 AM Associated attestation - Tavo Aguilar MD - 09/21/2021 2:00 PM CDT I was present for exam and discussion of patient with the resident and medical student. I agree with progress note and plan for the patient's Post Operative Pain Management. PS3 Pain well controlled. * Akhil Potter MD - 09/21/2021 6:32 AM CDT Images from the original note were not included. ACUTE CARE SURGERY PROGRESS NOTE ADMIT: 09/15/2021 4:22 PM LOS: 6 days 4 Days Post-Op 09/21/2021 HISTORY: Chuck Cannon is a 26 year old male with PMHx of HTN, HLD, T2DM, GERD, gastroschisis, and multiple small bowel obstructions s/p small bowel resection x2 as a child who was transferred to [facility] from OSH on 09/15 for evaluation of small bowel obstruction requiring NG decompression for managementof symptoms, with OSH SBFT revealing no contrast in colon after 4 hours but some after 8 hours. He was admitted to ACS service upon arrival and underwent initial medical management. However, he continued to be symptomatic with significant NG output and failed repeat SBFT 09/16. He underwent ex lap,small bowel resection, and enterolysis on 09/17. NG tube removed 09/19. Tolerating advancement of diet without nausea or vomiting. SUBJECTIVE: - 4 Days Post-Op s/p ex lap, small bowel resection, and enterolysis - Afebrile, VSS, sats wnl on room air - Adequate UOP (0.54) - [employer] discontinued yesterday and transitioned to oral pain regimen. Reports pain is controlled, with some pressure that feels like gas discomfort. - Tolerating clear liquid diet without nausea or vomiting. - Reports passing consistent flatus. Denies BM. OBJECTIVE: Blood pressure 120/97, pulse 71, temperature 98.4 ??F (36.9 ??C), temperature source Oral, resp. rate 18, height 5' 11 (1.803 m), weight 260 lb 2.3 oz (118 kg), SpO2 96 %. Temp: [98.2 ??F (36.8 ??C)-98.6 ??F (37 ??C)] 98.4 ??F (36.9 ??C) Pulse: [69-86] 71 Resp: [18-20] 18 BP: (120-135)/(84-98) 120/97 DIET: DIET CLEAR LIQUID Ins/Outs: 09/20 0701 - 09/21 0700 In: - Out: 1550 [Urine:1550] Physical Exam GEN: Resting in bed. No acute distress. SKIN: Warm, dry, intact. HEENT: Normocephalic. Atraumatic. CV: Regular rate and rhythm. RESP: Unlabored respirations on NC. Symmetric chest rise. ABD: Soft, nondistended, appropriately tender to palpation. No rebound, guarding, or rigidity. Midline incision well-approximated with goyo. Dressings clean, dry and intact. EXT: Warm and well-perfused. No lower extremity edema. NEURO: Alert and oriented. Moves all extremities. PSYCH: Normal speech and affect. RECENT LABS: Recent Labs Component Name 09/21/2123409/20/21 0935 09/19/21 0337 WBC 10.1 9.9 7.8 HGB 10.7* 11.3* 12.0 HCT 32.3* 34.4* 37.0 MCV 85.0 85.4 85.5 Recent Labs Component Name 09/21/2123409/20/21 0935 09/19/21 0337 NA 141 141 140 CL 103 103 105 CO2 27 25 23 BUN 5* 5* 9 CREATININE 0.58* 0.60* 0.73 CALCIUM 9.3 9.3 8.6 MAGNESIUM 1.8 1.8 1.7 PHOS 4.1 3.7 2.6* Recent Labs Component Name 09/15/21 1848 PROT 7.7 ALB 3.7 TBILI 1.2 AST 22 ALT 47 ALKPHOS 80 RECENT IMAGING: No new imaging results. ASSESSMENT: Chuck Cannon is a 26 year old male with PMHx of HTN, HLD, T2DM, GERD, gastroschisis, and multiple small bowel obstructions s/p small bowel resection x2 as a child who was transferred to [facility] from OSH on 09/15 for evaluation of small bowel obstruction. He was admitted to ACS service upon arrival and underwent initial medical management. However, he continued to be symptomatic with significant NG output and failed repeat SBFT 09/16. He is now 4 Days Post- Op s/p ex lap, small bowel resection, and enterolysis on 09/17. He remains afebrile and hemodynamically stable with postoperative pain improving. Awaiting return of bowel function. NEURO: #Post-operative pain - Pain team following: appreciate recs - Multimodal pain regimen: Scheduled oxycodone 10mg q4h with breakthrough dilaudid as needed with plans to de-escalate from scheduled to PRN oxycodone after 24 hours, Tylenol 650mg q6h, Flexeril 10mgTID PRN, lidocaine patch, ketorolac 30mg q6h PRN - Viscous lidocaine tid PRN CV: - VSS, monitor q4h #Hx of HTN - Labetalol q4h PRN, hydralazine q4h PRN #Hx of HLD - Home pravastatin qhs RESP: - Sats wnl on room air - Pulse ox monitoring - Encourage IS #Hx of asthma - Home Singulair qhs FEN/GI: #SBO #S/p ex lap, small bowel resection, enterolysis - Clear liquid diet - Bowel regimen: senna-docusate, miralax PRN - Antiemetics: Zofran q6h PRN, Compazine q6h PRN - GI PPx: Pepcid bid RENAL: - UOP adequate (0.54) - Continue to monitor UOP - Electrolyte repletion PRN - Daily BMP, Mg, Phos HEME/ID: - Hgb stable - Afebrile without leukocytosis - Daily CBC ENDO: #Hx of T2DM - SSI 0-6U MSK: - PT/OT - VTE PPx: SCDs, Lovenox qd Lines: epidural, PIV Code status: Full Code Dispo: floor management Akhil Potter MD General Surgery PGY-3 09/21/2021 7:20 AM * Angelina Ingram DO - 09/20/2021 6:25 PM CDT Regional & Acute Pain Service Progress Note Admit Date: 09/15/2021 Hospital Day: 6 The patient is a 26 year old male who is s/p ex lap, lysis of adhesions on 09/17/2021. The patient received a pre-op epidural for post-op pain management. Subjective: [employer] with adequate pain control over last 24 hours. Tolerating clears without issues this evening. Pain Level: 3-4 moderate pain Sedation: Alert Activity Level: as tolerates Objective: Physical Exam: BP 122/84 Pulse 69 Temp 98.2 ??F (36.8 ??C) (Oral) Resp 19 Ht 1.803 m (5' 11 ) Wt 118 kg (260 lb 2.3 oz) SpO2 96% BMI 36.28 kg/m2 Constitutional: alert, cooperative, no distress Lung: CTAB Heart: RRR Abdomen: soft, non-tender Skin: Skin color, texture, turgor normal. Extremity: normal, atraumatic, no cyanosis or edema Current Facility-Administered Medications Medication Dose Route Frequency Provider Last Rate Last Admin ??? *Hold/Avoid Anticoagulants and Antiplatelet agents Other 799 and 1999 Angelina Ingram, DO ??? *Hold/Avoid Medication Other 799 and 1999 Angelina Ingram, DO ??? 0.9% NaCl injection 3 mL 3 mL Intracatheter q8h Akhil Potter MD 3 mL at 09/19/212036 And ??? 0.9% NaCl injection 1-10 mL 1-10 mL Intracatheter PRN Akhil Potter MD ??? acetaminophen (Tylenol) tablet 650 mg 650 mg Oral q6h Akhil Potter MD 650 mg at 09/20/21 1703 ??? bisacodyl (Dulcolax) suppository 10 mg 10 mg Rectal q8h PRN Akhil Potter MD ??? cyclobenzaprine (Flexeril) tablet 10 mg 10 mg Oral TID PRN Akhil Potter MD ??? dextrose 10 % IV bolus 12.5 g Intravenous PRN Isaiah Barney MD Or ??? dextrose 10 % IV bolus 25 g Intravenous PRN Isaiah Barney MD ??? enoxaparin (Lovenox) injection 40 mg 40 mg Subcutaneous QDAY Akhil Potter MD 40 mg at 09/20/21 0752 ??? famotidine (Pepcid) injection 20 mg 20 mg Intravenous BID Akhil Potter MD 20 mg at 09/20/212050 ??? glucagon (Glucagen) injection 1 mg 1 mg Intramuscular PRN Isaiah Barney MD ??? glucose (Diabetic Use) (Dex4 Glucose) oral liquid Oral PRN Isaiah Barney MD ??? glucose (Diabetic Use) oral gel Oral PRN Isaiah Barney MD ??? glucose chew tablet 4 tablet 16 g Oral PRN Isaiah Barney MD ??? hydrALAZINE (Apresoline) injection 10 mg 10 mg Intravenous q4h PRN Akhil Potter MD ??? HYDROmorphone (Dilaudid) injection 0.1 mg 0.1 mg Intravenous q2h PRN Isaiah Barney MD Or ??? HYDROmorphone (Dilaudid) injection 0.2 mg 0.2 mg Intravenous q2h PRN Isaiah Barney MD 0.2 mg at 09/17/21 0808 ??? insulin lispro (HumaLOG;ADMelog) 100 UNIT/ML pen 0-6 Units 0-6 Units Subcutaneous q4h Isaiah Barney MD 1 Units at 09/17/212013 ??? ketorolac (Toradol) injection 30 mg 30 mg Intravenous q6h PRN Akhil Potter MD 30 mg at 09/19/212231 ??? labetalol (Normodyne; Trandate) injection 10 mg 10 mg Intravenous q4h PRN Akhil Potter MD ??? lidocaine (Lidoderm) 5 % patch 1 patch 1 patch Transdermal q24h Tod Ingram MD 1 patch at09/20/212050 ??? lidocaine viscous (Xylocaine) 2 % solution 5 mL 5 mL Mouth/Throat TID PRN Akhil Potter MD5 mL at 09/16/21 1119 ??? montelukast (Singulair) tablet 10 mg 10 mg Oral AT BEDTIME Isaiah Barney MD 10 mg at 09/20/212050 ??? naloxone (Narcan) injection 0.2 mg 0.2 mg Intravenous PRN Angelina Ingram DO ??? ondansetron (Zofran) injection 4 mg 4 mg Intravenous q6h PRN Akhil Potter MD 4 mg at 09/16/212000 ??? oxyCODONE (immediate release) (Roxicodone) tablet 10 mg 10 mg Oral q4h Angelina Ingram, DO ??? oxyCODONE (immediate release) (Roxicodone) tablet 5 mg 5 mg Oral q6h PRN Akhil Potter MD ??? pravastatin (Pravachol) tablet 40 mg 40 mg Oral AT BEDTIME Isaiah Barney MD 40 mg at 09/20/212050 ??? prochlorperazine (Compazine) injection 10 mg 10 mg Intravenous q6h PRN Isaiah Barney MD 10 mg at 09/17/21 0808 ??? throat lozenge 1 lozenge 1 lozenge Oral q2h PRN Akhil Potter MD Lab Data: Recent Labs Component Name 09/20/21 0935 09/19/21 0337 09/18/21 0306 09/17/21 1933 09/17/21 0228 WBC 9.9 7.8 10.7* 15.3* 13.8* HGB 11.3* 12.0 12.6 13.5 14.5 HCT 34.4* 37.0 38.5 40.5 43.1 Recent Labs Component Name 09/20/21 0935 09/19/21 0337 09/18/21 0306 09/17/21 0228 09/16/21 0238 NA 141 140 139 138 141 CL 103 105 108* 103 102 CO2 25 23 22 20* 20* BUN 5* 9 11 16 7 CREATININE 0.60* 0.73 0.84 0.91 0.77 CALCIUM 9.3 8.6 9.1 10.1 9.8 PHOS 3.7 2.6* 3.4 4.5 3.8 Pain Management Meds: dilaudid [employer] 0.4 q15m - attempts/doses given matched well overnight Adjuvants: toradol, lidocaine patches, dilaudid PRN Assessment: Pain Relief/Comfort Goal Met: Yes Anticoagulant Use Checked: Yes Plan: - dicontinue [employer] - schedule oxycodone 10mg q4h with breakthrough dilaudid as needed with plans to de-escalate from scheduled to PRN oxycodone after 24 hours - Continue to encourage bowel regimen and early ambulation as tolerates. - Encourage incentive spirometery The patient was seen and the plan was discussed with my attending Dr. Suárez. Angelina Ingram, DO Anesthesiology and Critical Care PGY-2 09/20/2021 1825 Associated attestation - Nicole Suárez MD - 09/20/2021 9:34 PM CDT I have seen and examined the patient with the resident and I agree with the findings and plan of care for this pt on 09/20/21 for pain management after abdominal surgery. Nicole Suárez MD 09/20/2021 9:34 PM * Maeve Guardado RN - 09/20/2021 3:33 PM CDT Problem: Pain/Discomfort Goal: Patient exhibits [...] found in the flowsheet documentation) Outcome: Progressing Problem: General Goal: STG-Patient will Description: Complete lower body dressing independently Outcome: Progressing Problem: Mobility Goal: LTG - Patient will ambulate community distance Outcome: Progressing * Akhil Potter MD - 09/20/2021 8:36 AM CDT Images from the original note were not included. ACUTE CARE SURGERY PROGRESS NOTE ADMIT: 09/15/2021 4:22 PM LOS: 5 days 3 Days Post-Op 09/20/2021 HISTORY: Chuck Cannon is a 26 year old male with PMHx of HTN, HLD, T2DM, GERD, gastroschisis, and multiple small bowel obstructions s/p small bowel resection x2 as a child who was transferred to [facility] from OSH on 09/15 for evaluation of small bowel obstruction requiring NG decompression for managementof symptoms, with OSH SBFT revealing no contrast in colon after 4 hours but some after 8 hours. He was admitted to ACS service upon arrival and underwent initial medical management. However, he continued to be symptomatic with significant NG output and failed repeat SBFT 09/16. He underwent ex lap,small bowel resection, and enterolysis on 09/17. NG tube removed 09/19 without nausea or vomiting. SUBJECTIVE: - 3 Days Post-Op s/p ex lap, small bowel resection, and enterolysis - Afebrile, VSS, sats wnl on 2L/min NC - Adequate UOP (0.67) - Continues on [employer], patient reports increased pain with coughing - NG tubed removed yesterday. Denies nausea or vomiting with sips and chips. - Denies flatus or bowel movement OBJECTIVE: Blood pressure 135/98, pulse 86, temperature 98.5 ??F (36.9 ??C), temperature source Oral, resp. rate 19, height 5' 11 (1.803 m), weight 260 lb 2.3 oz (118 kg), SpO2 96 %. Temp: [98 ??F (36.7 ??C)-98.6 ??F (37 ??C)] 98.5 ??F (36.9 ??C) Pulse: [86-94] 86 Resp: [18-19] 19 BP: (133-149)/(94-114) 135/98 DIET: DIET NPO Except: SIPS WITH MEDS, SIPS, ICE CHIPS Ins/Outs: 09/19 0701 - 09/20 0700 In: 800 Out: 1900 [Urine:1900] Physical Exam GEN: Resting in bed. No acute distress. SKIN: Warm, dry, intact. HEENT: Normocephalic. Atraumatic. CV: Regular rate and rhythm. RESP: Unlabored respirations on NC. Symmetric chest rise. ABD: Soft, nondistended, appropriately tender to palpation. No rebound, guarding, or rigidity. Midline incision well-approximated with goyo. Dressings clean, dry and intact. Replaced at bedside. EXT: Warm and well-perfused. No lower extremity edema. NEURO: Alert and oriented. Moves all extremities. PSYCH: Normal speech and affect. RECENT LABS: Recent Labs Component Name 09/19/21 0337 09/18/21 0306 09/17/21 1933 WBC 7.8 10.7* 15.3* HGB 12.0 12.6 13.5 HCT 37.0 38.5 40.5 MCV 85.5 86.3 85.1 Recent Labs Component Name 09/19/21 0337 09/18/21 0306 09/17/21 0228 NA 140 139 138 CL 105 108* 103 CO2 23 22 20* BUN 9 11 16 CREATININE 0.73 0.84 0.91 CALCIUM 8.6 9.1 10.1 MAGNESIUM 1.7 2.2 2.5 PHOS 2.6* 3.4 4.5 Recent Labs Component Name 09/15/21 1848 PROT 7.7 ALB 3.7 TBILI 1.2 AST 22 ALT 47 ALKPHOS 80 RECENT IMAGING: No new imaging results. ASSESSMENT: Chuck Cannon is a 26 year old male with PMHx of HTN, HLD, T2DM, GERD, gastroschisis, and multiple small bowel obstructions s/p small bowel resection x2 as a child who was transferred to [facility] from OSH on 09/15 for evaluation of small bowel obstruction. He was admitted to ACS service upon arrival and underwent initial medical management. However, he continued to be symptomatic with significant NG output and failed repeat SBFT 09/16. He is now 3 Days Post- Op s/p ex lap, small bowel resection, and enterolysis on 09/17. He remains afebrile and hemodynamically stable with postoperative pain improving. Awaiting return of bowel function. NEURO: #Post-operative pain - Dilaudid [employer] per pain team - Multimodal pain regimen: Tylenol 650mg q6h, Flexeril 10mg TID PRN, lidocaine patch, Dilaudid IV, ketorolac q6h PRN - Viscous lidocaine tid PRN CV: - VSS, monitor q4h #Hx of HTN - Labetalol q4h PRN, hydralazine q4h PRN #Hx of HLD - Home pravastatin qhs RESP: - Sats wnl on 2L/min NC - Pulse ox monitoring - Encourage IS #Hx of asthma - Home Singulair qhs FEN/GI: #SBO #S/p ex lap, small bowel resection, enterolysis - NPO + sips/chips, mIVF D5 1/2NS at 100ml/hr - Bowel regimen: Dulcolax q8h PRN - Antiemetics: Zofran q6h PRN, Compazine q6h PRN - GI PPx: Pepcid bid RENAL: - UOP adequate (0.67) - Continue to monitor UOP - Electrolyte repletion PRN - Daily BMP, Mg, Phos HEME/ID: - Hgb stable, labs pending - Afebrile without leukocytosis, labs pending - Daily CBC ENDO: #Hx of T2DM - SSI 0-6U MSK: - PT/OT - VTE PPx: SCDs, Lovenox qd Lines: epidural, PIV Code status: Full Code Dispo: floor management The assessment and management of this patient has been discussed with senior resident, Dr. Potter,and attending physician, Dr. Cesar. Marley Stephens, MS4 09/20/21 8:37 AM I have seen and examined the patient with the the medical student and I agree with the findings andplan of care documented in the medical student note. I have changed the note where indicated to reflect the accurate plan. Akhil Potter MD General Surgery PGY-3 09/20/2021 9:47 AM Associated attestation - Cindi Cesar MD - 09/20/2021 5:05 PM CDT I have seen and examined the patient on 09/20/2021 in conjunction with the Resident. I agree with thefindings and plan of care as documented in the resident's note and as discussed with the resident. 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 Denies n/v/f/c/cp/sob. Tolerating PO (sips clears) and having flatus this afternoon. Afebrile, hemodynamically normal, on RA with end tidal co2 monitoring. Can start clears, miralax/docusate/senna. ADAT. Get off [employer] tomorrow if andres clears and transition to PO pain meds. Recent Labs Component Name 09/20/21 0935 09/19/21 0337 09/18/21 0306 WBC 9.9 7.8 10.7* HGB 11.3* 12.0 12.6 HCT 34.4* 37.0 38.5 PLTCOUNT 323 [id number] 380 Recent Labs Component Name 09/20/21 0935 09/19/21 0337 09/18/21 0306 POTASSIUM 3.6 3.5 4.4 CO2 25 22 BUN 5* 9 11 CREATININE 0.60* 0.73 0.84 EGFR >90 >90 >90 GLUCOSE 126* 104 133* CALCIUM 9.3 8.6 9.1 Patient Vitals for the past 24 hrs: Temp Pulse Resp BP SpO2 09/20/21 1609 98.2 ??F (36.8 ??C) 69 19 122/84 96 % 09/20/21 1211 98.4 ??F (36.9 ??C) 74 20 130/86 95 % 09/20/21 0742 98.5 ??F (36.9 ??C) 86 19 135/98 96 % 09/19/21 2000 98.6 ??F (37 ??C) 90 -- 148/97 97 % Active Hospital Problems Diagnosis Date Noted Small bowel obstruction 09/14/2021 Priority: 1. S/P small bowel resection 09/17/2021 Priority: 1. S/P exploratory laparotomy 09/17/2021 Priority: 1. Postoperative abdominal pain 09/18/2021 Priority: 2. History of gastroschisis 09/16/2021 Priority: Not Prioritized KARRIE (obstructive sleep apnea) 09/12/2021 Priority: Not Prioritized Controlled type 2 diabetes mellitus without complication, without long-term current use of insulin 06/16/2021 Priority: Not Prioritized Arthrogryposis 06/15/2021 Priority: Not Prioritized Resolved Hospital Problems No resolved problems to display. I spent > 25 minutes directly involved in this patient's care, > 50% of the time was spent inthe counseling and the coordination of the care of this patient. Cindi Cesar MD filling machine operator Trauma / Critical Care / Acute Care / Burn Surgeon * Zackery García RN - 09/19/2021 9:36 PM CDT Problem: Pain/Discomfort Goal: Patient exhibits [...] found in the flowsheet documentation) Outcome: Progressing Problem: General Goal: STG-Patient will Description: Complete lower body dressing independently Outcome: Progressing Problem: Mobility Goal: LTG - Patient will ambulate community distance Outcome: Progressing * Angelina Ingram, - 09/19/2021 10:05 AM CDT Regional & Acute Pain Service Progress Note Admit Date: 09/15/2021 Hospital Day: 5 The patient is a 26 year old male who is s/p ex lap, lysis of adhesions on 09/17/2021. The patient received a pre-op epidural for post-op pain management. Subjective: Epidural removed yesterday 09/18. [employer]ER controlling his pain adequately. NGT still in place and diet not yet advanced. Pain Level: 3-4 moderate pain Sedation: Alert Activity Level: as tolerates Objective: Physical Exam: BP 136/94 Pulse 86 Temp 97.5 ??F (36.4 ??C) (Oral) Resp 17 Ht 1.803 m (5' 11 ) Wt 118 kg (260 lb 2.3 oz) SpO2 97% BMI 36.28 kg/m2 Constitutional: alert, cooperative, no distress Lung: CTAB Heart: RRR Abdomen: soft, non-tender Sensory Block: Yes Motor Block: No Skin: Skin color, texture, turgor normal. Extremity: normal, atraumatic, no cyanosis or edema Catheter site: clean and not tender Current Facility-Administered Medications Medication Dose Route Frequency Provider Last Rate Last Admin ??? *Hold/Avoid Anticoagulants and Antiplatelet agents Other 799 and 1999 Angelina Ingram DO ??? *Hold/Avoid Medication Other 00 and 1999 Angelina Ingram DO ??? 0.9% NaCl injection 3 mL 3 mL Intracatheter q8h Akhil Potter MD 3 mL at 09/17/212014 And ??? 0.9% NaCl injection 1-10 mL 1-10 mL Intracatheter PRN Akhil Potter MD ??? bisacodyl (Dulcolax) suppository 10 mg 10 mg Rectal q8h PRN Akhil Potter MD ??? dextrose 10 % IV bolus 12.5 g Intravenous PRN Isaiah Barney MD Or ??? dextrose 10 % IV bolus 25 g Intravenous PRN Isaiah Barney MD ??? dextrose 5 % and 0.45% NaCl infusion Intravenous Continuous Tod Ingram MD 100 mL/hr at 09/19/21 06 New Bag at 09/19/21 06 ??? enoxaparin (Lovenox) injection 40 mg 40 mg Subcutaneous QDAY Akhil Potter MD 40 mg at 09/18/21 0920 ??? famotidine (Pepcid) injection 20 mg 20 mg Intravenous BID Akhil Potter MD 20 mg at 09/19/21 0848 ??? glucagon (Glucagen) injection 1 mg 1 mg Intramuscular PRN Isaiah Barney MD ??? glucose (Diabetic Use) (Dex4 Glucose) oral liquid Oral PRN Isaiah Barney MD ??? glucose (Diabetic Use) oral gel Oral PRN Isaiah Barney MD ??? glucose chew tablet 4 tablet 16 g Oral PRN Isaiah Barney MD ??? hydrALAZINE (Apresoline) injection 10 mg 10 mg Intravenous q4h PRN Akhil Potter MD ??? HYDROmorphone (Dilaudid) 0.2 mg/ml [employer] Intravenous [employer] Angelina Ingram DO New Bag at ??? HYDROmorphone (Dilaudid) injection 0.1 mg 0.1 mg Intravenous q2h PRN Isaaih Barney MD Or ??? HYDROmorphone (Dilaudid) injection 0.2 mg 0.2 mg Intravenous q2h PRN Isaiah Barney MD 0.2 mg at 09/17/21 0808 ??? insulin lispro (HumaLOG;ADMelog) 100 UNIT/ML pen 0-6 Units 0-6 Units Subcutaneous q4h Isaiah Barney MD 1 Units at 09/17/212013 ??? ketorolac (Toradol) injection 30 mg 30 mg Intravenous q6h PRN Akhil Potter MD 30 mg at 09/18/21 2336 ??? labetalol (Normodyne; Trandate) injection 10 mg 10 mg Intravenous q4h PRN Akhil Potter MD ??? lidocaine (Lidoderm) 5 % patch 1 patch 1 patch Transdermal q24h Tod Ingram MD 1 patch at09/18/212056 ??? lidocaine viscous (Xylocaine) 2 % solution 5 mL 5 mL Mouth/Throat TID PRN Akhil Potter MD5 mL at 09/16/21 1119 ??? montelukast (Singulair) tablet 10 mg 10 mg Oral AT BEDTIME Isaiah Barney MD 10 mg at 09/18/212051 ??? naloxone (Narcan) injection 0.2 mg 0.2 mg Intravenous PRN Angelina Ingram DO ??? ondansetron (Zofran) injection 4 mg 4 mg Intravenous q6h PRN Akhil Potter MD 4 mg at 09/16/212000 ??? pravastatin (Pravachol) tablet 40 mg 40 mg Oral AT BEDTIME Isaiah Barney MD 40 mg at 09/18/212051 ??? prochlorperazine (Compazine) injection 10 mg 10 mg Intravenous q6h PRN Isaiah Barney MD 10 mg at 09/17/21 0808 ??? throat lozenge 1 lozenge 1 lozenge Oral q2h PRN Akhil Potter MD Lab Data: Recent Labs Component Name 09/19/21 0337 09/18/21 0306 09/17/21 1933 09/17/21 0228 09/16/21 0238 WBC 7.8 10.7* 15.3* 13.8* 10.6* HGB 12.0 12.6 13.5 14.5 13.4 HCT 37.0 38.5 40.5 43.1 40.3 Recent Labs Component Name 09/19/21 0337 09/18/21 0306 09/17/21 0228 09/16/21 0238 09/15/21 1848 NA 140 139 138 141 139 CL 105 108* 103 102 101 CO2 23 22 20* 20* 24 BUN 9 11 16 7 7 CREATININE 0.73 0.84 0.91 0.77 0.64* CALCIUM 8.6 9.1 10.1 9.8 9.7 PHOS 2.6* 3.4 4.5 3.8 - Pain Management Meds: dilaudid [employer] 0.4 q15m - attempts/doses given matched well overnight Adjuvants: toradol, lidocaine patches, dilaudid PRN Assessment: Pain Relief/Comfort Goal Met: Yes Anticoagulant Use Checked: Yes Plan: - Continue [employer] until tolerating PO, then can transition from [employer]ER to oxycodone PO. - Would recommend starting with oxycodone 10mg q4h scheduled for at least 24 hours to adequately cover his pain and then can de-escalate pending tolerance. - Continue to encourage bowel regimen and early ambulation as tolerates. - Encourage incentive spirometery The patient was seen and the plan was discussed with my attending Dr. Suárez. Angelina Ingram, DO Anesthesiology and Critical Care PGY-2 09/19/2021 10:09 AM Associated attestation - Nicole Suárez MD - 09/20/2021 6:26 PM CDT I have seen and examined the patient with the resident and I agree with the findings and plan of care for this pt on 09/19/21 for pain management after abdominal surgery. * Steffany Sunshine RN - 09/19/2021 8:56 AM CDT Care plan reviewed. Will continue to monitor and update care plan as patient reaches his goals. * Steffany Sunshine RN - 09/19/2021 8:50 AM CDT Intact Ng tube removed. Pt tolerated removal well. No acute distress noted and patient voices no complaints at this time. Daily assessment completed at bedside. See flowsheet for further details. Family a bedside. No acute distress noted. * Akhil Potter MD - 09/19/2021 8:30 AM CDT Images from the original note were not included. ACUTE CARE SURGERY PROGRESS NOTE ADMIT: 09/15/2021 4:22 PM LOS: 4 days 2 Days Post-Op 09/19/2021 HISTORY: Chuck Cannon is a 26 year old male with PMHx of HTN, HLD, T2DM, GERD, gastroschisis, and multiple small bowel obstructions s/p small bowel resection x2 as a child who was transferred to [facility] from OSH on 09/15 for evaluation of small bowel obstruction requiring NG decompression for managementof symptoms, with OSH SBFT revealing no contrast in colon after 4 hours but some after 8 hours. He was admitted to ACS service upon arrival and underwent initial medical management. However, he continued to be symptomatic with significant NG output and failed repeat SBFT 09/16. He underwent ex lap,small bowel resection, and enterolysis on 09/17. SUBJECTIVE: - 2 Days Post-Op s/p ex lap, small bowel resection, and enterolysis - Afebrile, VSS, sats wnl on 2L/min NC - Low UOP overnight, improved with 1L LR bolus - Continues on [employer]ER with pain well-controlled today - NG remains in place, denies nausea or emesis - Denies flatus or bowel movement OBJECTIVE: Blood pressure 136/94, pulse 86, temperature 97.5 ??F (36.4 ??C), resp. rate 18, height 5' 11 (1.803 m), weight 260 lb 2.3 oz (118 kg), SpO2 97 %. Temp: [97.5 ??F (36.4 ??C)-98.4 ??F (36.9 ??C)] 97.5 ??F (36.4 ??C) Pulse: [79-106] 86 Resp: [18] 18 BP: (121-139)/(78-100) 136/94 DIET: DIET NPO Except: SIPS WITH MEDS, SIPS, ICE CHIPS Ins/Outs: 09/18 0701 - 09/19 0700 In: 1900 [I.V.:900] Out: 1550 [Urine:550; Drains:1000] Physical Exam GEN: Resting in bed. No acute distress. SKIN: Warm, dry, intact. HEENT: Normocephalic. Atraumatic. NG in place with gastric output. CV: Regular rate and rhythm. RESP: Unlabored respirations on NC. Symmetric chest rise. ABD: Soft, nondistended, appropriately tender to palpation. No rebound, guarding, or rigidity. Midline incision well-approximated with goyo. Dressings with serosanguineous strikethrough, redressedat bedside. EXT: Warm and well-perfused. No lower extremity edema. NEURO: Alert and oriented. Moves all extremities. PSYCH: Normal speech and affect. RECENT LABS: Recent Labs Component Name 09/19/21 03309/18/21 0306 09/17/21 1933 WBC 7.8 10.7* 15.3* HGB 12.0 12.6 13.5 HCT 37.0 38.5 40.5 MCV 85.5 86.3 85.1 Recent Labs Component Name 09/19/21 03309/18/21 0306 09/17/21 0228 NA 140 139 138 CL 105 108* 103 CO2 23 22 20* BUN 9 11 16 CREATININE 0.73 0.84 0.91 CALCIUM 8.6 9.1 10.1 MAGNESIUM 1.7 2.2 2.5 PHOS 2.6* 3.4 4.5 Recent Labs Component Name 09/15/21 1848 PROT 7.7 ALB 3.7 TBILI 1.2 AST 22 ALT 47 ALKPHOS 80 RECENT IMAGING: No new imaging results. ASSESSMENT: Chuck Cannon is a 26 year old male with PMHx of HTN, HLD, T2DM, GERD, gastroschisis, and multiple small bowel obstructions s/p small bowel resection x2 as a child who was transferred to [facility] from OSH on 09/15 for evaluation of small bowel obstruction. He was admitted to ACS service upon arrival and underwent initial medical management. However, he continued to be symptomatic with significant NG output and failed repeat SBFT 09/16. He is now 2 Days Post- Op s/p ex lap, small bowel resection, and enterolysis on 09/17. He remains afebrile and hemodynamically stable with postoperative pain improving. Now awaiting return of bowel function. NEURO: #Post-operative pain - Dilaudid [employer]ER per pain team - Multimodal pain regimen: lidocaine patch, Dilaudid IV q2h PRN, ketorolac q6h PRN - Viscous lidocaine tid PRN CV: - VSS, monitor q4h #Hx of HTN - Labetalol q4h PRN, hydralazine q4h PRN #Hx of HLD - Home pravastatin qhs RESP: - Sats wnl on 2L/min NC - Pulse ox monitoring - Encourage IS #Hx of asthma - Home Singulair qhs FEN/GI: #SBO #S/p ex lap, small bowel resection, enterolysis - NPO + sips/chips, mIVF D5 1/2NS at 100ml/hr - Will remove NG today - Bowel regimen: Dulcolax q8h PRN - Antiemetics: Zofran q6h PRN, Compazine q6h PRN - GI PPx: Pepcid bid RENAL: - UOP low overnight, improved 0.50cc/kg/hr following 1L LR bolus - Continue to monitor UOP - Electrolyte repletion PRN - Daily BMP, Mg, Phos HEME/ID: - Hgb stable 12 (12.6) - Afebrile, WBC 7.8 (10.7) - Daily CBC ENDO: #Hx of T2DM - SSI 0-6U MSK: - PT/OT - VTE PPx: SCDs, Lovenox qd Lines: epidural, PIV, NG (remove today) Code status: Full Code Dispo: floor management The assessment and management of this patient has been discussed with senior resident, Dr. Potter,and attending physician, Dr. Cesar. Naila Coburn, MS4 09/19/21 8:31 AM I have seen and examined the patient with the the medical student and I agree with the findings andplan of care documented in the medical student note. I have changed the note where indicated to reflect the accurate plan. Akhil Potter MD General Surgery PGY-3 09/19/2021 9:22 AM Associated attestation - Cindi Cesar MD - 09/19/2021 4:07 PM CDT I have seen and examined the patient on 09/19/2021 in conjunction with the Resident. I agree with thefindings and plan of care as documented in the resident's note and as discussed with the resident. My findings are below: NGT 800 cc past 24 hrs, no n/v. Removed NGT. Tolerating sips of clears without n/v. No flatus or BM yet. Pain appears well controlled on current regimen. Denies n/v/f/c/cp/sob. Afebrile, hemodynamically normal, on room air. Incision clean and intact. Some serosanguinous drainage at umbilical portion. Dry dressing re-applied. Awaiting return of bowel function to advance diet and transition to oral pain regimen. Continue IV fluids for dehydration. Recent Labs Component Name 09/19/21 0337 09/18/21 0306 09/17/211932 WBC 7.8 10.7* 15.3* HGB 12.0 12.6 13.5 HCT 37.0 38.5 40.5 PLTCOUNT 287 380 426* Recent Labs Component Name 09/19/21 0337 09/18/21 0306 09/17/21 0228 POTASSIUM 3.5 4.4 3.9 CO2 23 22 20* BUN 9 11 16 CREATININE 0.73 0.84 0.91 EGFR >90 >90 >90 GLUCOSE 104 133* 128* CALCIUM 8.6 9.1 10.1 Patient Vitals for the past 24 hrs: Temp Pulse Resp BP SpO2 09/19/21 1533 98 ??F (36.7 ??C) 94 18 (!) 149/114 98 % 09/19/21 1135 98.4 ??F (36.9 ??C) 87 19 145/97 98 % 09/19/21 0809 97.5 ??F (36.4 ??C) 86 17 136/94 97 % 09/19/21 0445 98.1 ??F (36.7 ??C) 101 18 (!) 138/100 100 % 09/19/21 0015 98.4 ??F (36.9 ??C) 79 18 121/78 96 % 09/18/21 1955 98 ??F (36.7 ??C) 90 18 139/98 97 % Active Hospital Problems Diagnosis Date Noted Small bowel obstruction 09/14/2021 Priority: 1. S/P small bowel resection 09/17/2021 Priority: 1. S/P exploratory laparotomy 09/17/2021 Priority: 1. Postoperative abdominal pain 09/18/2021 Priority: 2. History of gastroschisis 09/16/2021 Priority: Not Prioritized KARRIE (obstructive sleep apnea) 09/12/2021 Priority: Not Prioritized Controlled type 2 diabetes mellitus without complication, without long-term current use of insulin 06/16/2021 Priority: Not Prioritized Arthrogryposis 06/15/2021 Priority: Not Prioritized Resolved Hospital Problems No resolved problems to display. I spent > 25 minutes directly involved in this patient's care, > 50% of the time was spent inthe counseling and the coordination of the care of this patient. Cindi Cesar MD filling machine operator Trauma / Critical Care / Acute Care / Burn Surgeon * Maeve Guardado RN - 09/18/2021 3:34 PM CDT Problem: Pain/Discomfort Goal: Patient exhibits [...] found in the flowsheet documentation) Outcome: Progressing Problem: General Goal: STG-Patient will Description: Complete lower body dressing independently Outcome: Progressing * Carolyn Jimenez PT - 09/18/2021 3:16 PM CDT [facility] Physical Medicine and Rehabilitation Physical Therapy Initial Evaluation Note Patient: Chuck Cannon [facility] Record Number: [id number] Date of : 1995 Age: [age] year old Face mask: PT had procedure mask and eye protection donned throughout session. Tech: no Discharge Recommendation: Patient should be able to return home when medically cleared by physicianteam. Therapy will continue to treat patient while in hospital. See current amount of assist neededbelow. In addition to the 1:1 evaluation of the patient, additional eval time was spent completing the chart review prior to the assessment, completing the multidisciplinary plan of care and education plan post evaluation and communicating results of the eval to other treatment team members. Patient currently using no assistive device. Occupational Therapy contacted regarding patient status and/or discharge plan. Physician Orders: Evaluation and Treat PRECAUTIONS: Fall Activity Level up ad jim DIAGNOSIS: Patient Active Problem List: Small bowel obstruction History of gastroschisis Allergic rhinitis Arthrogryposis Controlled type 2 diabetes mellitus without complication, without long-term current use of insulin Deviated nasal septum Elbow problem Essential hypertension, benign Gallbladder polyp Gastroesophageal reflux disease without esophagitis Hypertrophy of nasal turbinates Insomnia Mixed hyperlipidemia Nonalcoholic steatohepatitis KARRIE (obstructive sleep apnea) Pure hypercholesterolemia S/P small bowel resection S/P exploratory laparotomy Postoperative abdominal pain Past Medical History: Diagnosis Date ??? Arthrogryposis 06/15/2021 ??? Controlled type 2 diabetes mellitus without complication, without long-term current use of insulin 06/16/2021 ??? 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 KARRIE (obstructive sleep apnea) 09/12/2021 SUBJECTIVE: Patient is pleasant and agreeable to work with PT PATIENT GOALS: go home and get his catheter out Home living: Type of Residence: Private Residence Lives with:: Significant Other Steps to Enter: 5 (with one rail) Home Structure: One Story;Basement Primary Bedroom: First Floor Primary Bathroom: First Floor Bathroom : Tub/Shower Combo Equipment At Home: Grab Bars Prior Function: Mobility: Ambulate-In Community;Ambulate-In Home ;Independent;Without Assistive Device Fallen Within 6 Mos: No Have Help at Home?: Yes, there is help at home now How often is assistance provided?: Pt is independent with ADLS, IADLs and mobiliyt. Family can assist as needed upon d/c. 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 Pain: Patient has 6/10 pain in abdomen Follow-up for pain: No follow-up for pain indicated and patient agreed to proceed with treatment; currently utilizing [employer]ER ?? OBJECTIVE: General Appearance: 26 yo male supine, NAD Precautions: IV's: Peripheral line, epidural line, NG/Dobbhoff, [employer]ER, catheter Edema: None noted ?? Vitals: (*Assess the 3 levels of oxygen saturations both for room air and 02 unless rest on room air is 88% or less). Rest BP: 140/88 HR: 97 SpO2 ?? SpO2 97 Room Air ? Observations: no signs/symptoms of distress MENTAL STATUS: Alert and oriented times 4 DIRECTION FOLLOWING: Able to follow 1 step commands 100 % ROM: BLE AROM STRENGTH: BLE WFL SENSATION:BLE grossly intact FUNCTIONAL MOBILITY Not Tested Not Applicable Independent Stand by Assist Minimal Moderate Maximum Dependent Rolling x Scooting x Supine to/from sit x Sit to/from Stand x Bed to/ chair x BALANCE: Sitting Static: good Dynamic: good Standing Static: fair Dynamic: fair GAIT: Weight Bearing: WBAT Distance: 10 feet Device: gait belt and non-slip socks Assistance: Minimal assist Balance: fair fair plus endurance Observation: decreased rani and decreased B step length, distance limited by NG ACTIVITY TOLERANCE: Patient's activity tolerance: good TREATMENT/INTERVENTIONS: evaluation EDUCATION: While performing PT, Patient and mother was instructed in:Functional mobility training/weight bearing status Patient demonstrated Good understanding of instructions given. INFORMED CONSENT TO TREATMENT: Plan of care including recommended therapy, goals and frequency, discussed with patient who understands and agrees to proceed. ASSESSMENT: Patient would benefit from additional Physical Therapy to achieve the following functional goals toenhance independence. Short Term Goals: Goal Formation With patient Patient will perform bed mobility: Independent Patient will transfer sit to/from stand: Independent Patient will transfer bed to/from chair: Independent Patient will ambulate 200 feet with Independent and appropriate AD Patient will ascend/descend 5 steps: Stand By Assist Patient will perform home exercise program independently Residential Goal(s): Patient to be independent/baseline with functional mobility and self care and be able to safely discharge to prior level of care Equipment Issued: gait belt Plan: If patient is discharged from the facility, this note serves as a discharge summary if further physical therapy visits did not occur. Following therapy session, patient left in patient bedside chair, with chair alarm on and with calllight within reach * Virginia López RN - 09/18/2021 12:47 PM CDT Case Management Progress Note Anticipated level of care at discharge: Home Discharge Plan: Home -POD 0 exploratory laparotomy, small bowel resection, enterolysis. -[employer]ER pump initiated for pain -NPO -NG tube until return of bowl function -Patient not medically ready to DC Basic Needs Assessment (BNA) Score: 9 Anticipated Discharge Date: Anticipated Discharge Date: 09/21/21 Transportation at Discharge: Family PCP: Dr. Benjamin Transportation to MD:Drives self Equipment at Home: Equipment At Home: Grab Bars List DME patient requires but does not have: List DME pt. requires but does not have.: None Hunger Screening: Within the past 12 months, you worried that your food would run out before you got the money to buymore.: Never true Within the past 12 months, the food you bought just didn't last and you didn't have money to get more.: Never true Food Bank Resources Provided: Patient refused Medication affordability concerns: [place]: Virginia López RN Case credit relationship manager: [phone] 09/18/2021 * Angelina Ingram DO - 09/18/2021 10:53 AM CDT Acute Pain Management: Epidural was removed at approx 0830. The catheter tip was intact upon removal. The insertion site is non tender, non erythematous, and there is no sanguinous, serosanguinous or purulent drainage noted. The patient has no sensory or motor deficits. The patient denies any urinary incontinence, bowel incontinence or saddle anesthesia. May restart Lovenox in 4 hours or SQH in 2 hours. Continue [employer]ER at dose as written. Will re-evaluate for conversion to PO regimen once tolerating diethopefully tomorrow. Angelina Ingram DO 09/18/2021 10:53 AM * Akhil Potter MD - 09/18/2021 9:09 AM CDT Images from the original note were not included. ACUTE CARE SURGERY PROGRESS NOTE ADMIT: 09/15/2021 4:22 PM LOS: 3 days 1 Day Post-Op 09/18/2021 HISTORY: Chuck Cannon is a 26 year old male with PMHx of HTN, HLD, T2DM, GERD, gastroschisis, and multiple small bowel obstructions s/p small bowel resection x2 as a child who was transferred to [facility] from OSH on 09/15 for evaluation of small bowel obstruction requiring NG decompression for managementof symptoms, with OSH SBFT revealing no contrast in colon after 4 hours but some after 8 hours. He was admitted to ACS service upon arrival and underwent initial medical management. However, he continued to be symptomatic with significant NG output and failed repeat SBFT 09/16. He underwent ex lap,small bowel resection, and enterolysis on 09/17. SUBJECTIVE: - 1 Day Post-Op s/p ex lap, small bowel resection, and enterolysis - Afebrile - Tachycardic overnight, improved following 1L bolus - Vitals otherwise stable, sats wnl on 2L/min NC - Increased pain overnight, now improved following [employer]ER adjustment per pain team - NG remains in place, denies nausea or emesis - Denies flatus or bowel movement OBJECTIVE: Blood pressure 140/88, pulse 92, temperature 98 ??F (36.7 ??C), temperature source Oral, resp. rate18, height 5' 11 (1.803 m), weight 260 lb 2.3 oz (118 kg), SpO2 97 %. Temp: [97.3 ??F (36.3 ??C)-98.8 ??F (37.1 ??C)] 98 ??F (36.7 ??C) Pulse: [92-135] 92 Resp: [12-27] 18 BP: (108-167)/(74-111) 140/88 DIET: DIET NPO Except: SIPS WITH MEDS Ins/Outs: 09/17 0701 - 09/18 0700 In: 1900 [I.V.:1900] Out: 1950 [Urine:1350; Drains:600] Physical Exam GEN: Resting in bed. No acute distress. SKIN: Warm, dry, intact. HEENT: Normocephalic. Atraumatic. NG in place with bilious output. CV: Regular rate and rhythm. RESP: Unlabored respirations on NC. Symmetric chest rise. ABD: Soft, nondistended, appropriately tender to palpation. No rebound, guarding, or rigidity. Midline incision well-approximated with goyo. Dressing clean, dry, and intact. : Ash in place with carolyn urine. EXT: Warm and well-perfused. No lower extremity edema. NEURO: Alert and oriented. Moves all extremities. PSYCH: Normal speech and affect. RECENT LABS: Recent Labs Component Name 09/18/21 03009/17/21 1933 09/17/21 0228 WBC 10.7* 15.3* 13.8* HGB 12.6 13.5 14.5 HCT 38.5 40.5 43.1 MCV 86.3 85.1 83.9 Recent Labs Component Name 09/18/2130509/17/218 09/16/21 0238 NA 139 138 141 CL 108* 103 102 CO2 22 20* 20* BUN 11 16 7 CREATININE 0.84 0.91 0.77 CALCIUM 9.1 10.1 9.8 MAGNESIUM 2.2 2.5 2.1 PHOS 3.4 4.5 3.8 Recent Labs Component Name 09/15/21 1848 PROT 7.7 ALB 3.7 TBILI 1.2 AST 22 ALT 47 ALKPHOS 80 RECENT IMAGING: XR ABDOMEN 09/17: report pending ASSESSMENT: Chuck Cannon is a 26 year old male with PMHx of HTN, HLD, T2DM, GERD, gastroschisis, and multiple small bowel obstructions s/p small bowel resection x2 as a child who was transferred to [facility] from OSH on 09/15 for evaluation of small bowel obstruction. He was admitted to ACS service upon arrival and underwent initial medical management. However, he continued to be symptomatic with significant NG output and failed repeat SBFT 09/16. He is now 1 Day Post-Op s/pex lap, small bowel resection, and enterolysis on 09/17. He remains afebrile and hemodynamically stable with postoperative painimproving with recs per pain team. Continues with NG to LIWS while awaiting return of bowel function. NEURO: #Post-operative pain - Dilaudid [employer] WOR[employer]ORER per pain team - Multimodal pain regimen: Tylenol IV q8h, lidocaine patch, Dilaudid IV q2h PRN, ketorolac q6h PRN - Viscous lidocaine tid PRN CV: - VSS, monitor q4h #Hx of HTN - Labetalol q4h PRN, hydralazine q4h PRN #Hx of HLD - Home pravastatin qhs RESP: - Sats wnl on 2L/min NC - Pulse ox monitoring - Encourage IS #Hx of asthma - Home Singulair qhs FEN/GI: #SBO #S/p ex lap, small bowel resection, enterolysis - NPO, mIVF D5 1/2NS @ 100ml/hr - NG to LIWS while awaiting bowel function - Bowel regimen: Dulcolax q8h PRN - Antiemetics: Zofran q6h PRN, Compazine q6h PRN - GI PPx: Pepcid bid RENAL: - Ash in place while on 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 Serna, and attending physician, Dr. Cesar. Naila Coburn, MS4 09/18/21 9:11 AM I have seen and examined the patient with the the medical student and I agree with the findings andplan of care documented in the medical student note. I have changed the note where indicated to reflect the accurate plan. Akhil Potter MD General Surgery PGY-3 09/18/2021 11:39 AM Associated attestation - Cindi Cesar MD - 09/18/2021 2:19 PM CDT I have seen and examined the patient on 09/18/2021 in conjunction with the Resident. I agree with thefindings and plan of care as documented in the resident's note and as discussed with the resident. My findings are below: Postoperative abdominal pain improved with PUBLIC WORKS LABORER. Epidural was removed this morning by pain team as was not effective. No flatus or BM. Voiding via ash. Will remove. NGT 600 ml. Will keep x1 more day. Likely remove tomorrow and trial of clear liquid diet. Abdomen benign, expected postop tenderness. Continue IVF, concentrated urine, HR improved with fluid boluses given yesterday. Still at risk forsome dehydration/hypovolemia given degree of SBO / time frame of poor PO intake. Recent Labs Component Name 09/18/21 0306 09/17/21 1933 09/17/21 0228 WBC 10.7* 15.3* 13.8* HGB 12.6 13.5 14.5 HCT 38.5 40.5 43.1 PLTCOUNT 380 426* 413* Recent Labs Component Name 09/18/21 0306 09/17/21 0228 09/16/21 0238 POTASSIUM 4.4 3.9 3.8 CO2 22 20* 20* BUN 11 16 7 CREATININE 0.84 0.91 0.77 EGFR >90 >90 >90 GLUCOSE 133* 128* 77 CALCIUM 9.1 10.1 9.8 Patient Vitals for the past 24 hrs: Temp Pulse Resp BP SpO2 09/18/21 1213 98.2 ??F (36.8 ??C) 94 18 122/87 97 % 09/18/21 0755 98 ??F (36.7 ??C) 92 18 140/88 97 % 09/18/21 0435 98 ??F (36.7 ??C) 95 18 125/85 96 % 09/18/21 0035 98.2 ??F (36.8 ??C) 101 18 130/91 94 % 09/17/211999 98.2 ??F (36.8 ??C) (!) 130 18 151/80 94 % 09/17/211954 -- -- -- -- 09/17/21 1557 98.8 ??F (37.1 ??C) (!) 122 20 147/99 93 % Active Hospital Problems Diagnosis Date Noted Small bowel obstruction 09/14/2021 Priority: 1. S/P small bowel resection 09/17/2021 Priority: 1. S/P exploratory laparotomy 09/17/2021 Priority: 1. Postoperative abdominal pain 09/18/2021 Priority: 2. History of gastroschisis 09/16/2021 Priority: Not Prioritized KARRIE (obstructive sleep apnea) 09/12/2021 Priority: Not Prioritized Controlled type 2 diabetes mellitus without complication, without long-term current use of insulin 06/16/2021 Priority: Not Prioritized Arthrogryposis 06/15/2021 Priority: Not Prioritized Resolved Hospital Problems No resolved problems to display. I spent > 35 minutes directly involved in this patient's care, > 50% of the time was spent inthe counseling and the coordination of the care of this patient. Cindi Cesar MD filling machine operator Trauma / Critical Care / Acute Care / Burn Surgeon * Michelle Montesinos, OT - 09/18/2021 8:49 AM CDT [facility] Physical Medicine and Rehabilitation Occupational Therapy Initial Evaluation Note Patient: Chuck Cannon [facility] Record Number: [id number] Date of : 1995 Age: [age] year old Face Mask: procedural mask throughout Tech: not present Discharge Recommendation: Patient should be able to return home when medically cleared by physicianteam. Therapy will continue to treat patient while in hospital. See current amount of assist neededbelow. In addition to the 1:1 evaluation of the patient, additional eval time was spent completing the chart review prior to the assessment, completing the multidisciplinary plan of care and education plan post evaluation and communicating results of the eval to other treatment team members. Plan: ADL training Functional transfer training Endurance training Bed mobility Safety awareness Physician Orders: Evaluation and Treat Precautions: s/p abdominal sx DIAGNOSIS: Patient Active Problem List: Small bowel obstruction History of gastroschisis Allergic rhinitis Arthrogryposis Controlled type 2 diabetes mellitus without complication, without long-term current use of insulin Deviated nasal septum Elbow problem Essential hypertension, benign Gallbladder polyp Gastroesophageal reflux disease without esophagitis Hypertrophy of nasal turbinates Insomnia Mixed hyperlipidemia Nonalcoholic steatohepatitis KARRIE (obstructive sleep apnea) Pure hypercholesterolemia S/P small bowel resection S/P exploratory laparotomy Past Medical History: Diagnosis Date ??? Arthrogryposis 06/15/2021 ??? Controlled type 2 diabetes mellitus without complication, without long-term current use of insulin 06/16/2021 ??? 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 KARRIE (obstructive sleep apnea) 09/12/2021 SUBJECTIVE: agreeable to work with therapy PATIENT GOALS: None Home living: Type of Residence: Private Residence Lives with:: Significant Other Steps to Enter: 5 (with one rail) Home Structure: One Story;Basement Primary Bedroom: First Floor Primary Bathroom: First Floor Bathroom : Tub/Shower Combo Equipment At Home: Grab Bars Prior Function: Mobility: Ambulate-In Community;Ambulate-In Home ;Independent;Without Assistive Device Fallen Within 6 Mos: No Have Help at Home?: Yes, there is help at home now How often is assistance provided?: Pt is independent with ADLS, IADLs and mobiliyt. Family can assist as needed upon d/c. 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 Pain: Patient has 6/10 pain in abdomen Follow-up for pain: No follow-up for pain indicated and patient agreed to proceed with treatment; currently utilizing PUBLIC [employer]ER OBJECTIVE: General Appearance: 26 yo male supine, NAD Precautions: IV's: Peripheral line, epidural line, NG/Dobbhoff, PUBLIC [employer] LABORER, catheter Edema: None noted Vitals: (*Assess the 3 levels of oxygen saturations both for room air and 02 unless rest on room air is 88% or less). Rest BP: 140/88 HR: 97 SpO2 SpO2 97 Room Air Observations: no signs/symptoms of distress Cognitive: Alert, oriented x 4, follows 100% one step commands, good insight to safety/deficits Perceptual: WNL Upper extremity range of motion: WFL Upper extremity strength: WFL L UE; R UE displays limited elbow flex/ext and shoulder flex secondary to chronic deficit since Tone: WNL Coordination: WFL Sensation: WNL B UE light touch Patient's activity tolerance: fair Comments: FUNCTIONAL MOBILITY Not tested Independent Stand by Assist Minimal Moderate Maximum Dependent Rolling x Supine to/from sit x Sit to/from Standing x Bed to/from chair x Minimal assist to ambulate ~5ft from EOB to recliner without use of AD. A gait belt and non-slip socks were used for all out of bed mobility. Limited with mobility due to NG tube hooked to wall suction. Balance: Static Sitting: good Dynamic Sitting: good Static Standing: fair Dynamic Standing: fair Activities of Daily Living Feeding: independent Grooming/Bathing: Minimal assist Upper Extremity Dressing: Stand By Assist Lower Extremity Dressing: Maximal assist don socks Toileting/Transfers: currently using catheter Splint Issued/Checked: none TREATMENT / EDUCATION / EVALUATION: Purpose of Occupational Therapy evaluation explained. While performing mobility and self care, Patient and spouse was instructed in: Functional mobility training/weight bearing status, Safety awareness/fall precaution, Discharge plan and Self care training Presented to patient who demonstrates Good understanding of instructions given. INFORMED CONSENT TO TREATMENT: Plan of care including recommended therapy, goals and frequency, as well as potential risks and benefits of treatment/assessment explained to patient. Patient understands and agrees to proceed. ASSESSMENT: Functional performance limited due to: limited activities of daily living, pain, decreased mobilityand endurance Nurse and PT contacted regarding patient status and/or discharge plan. Short Term Goals: Patient will perform grooming standing at sink Independently Patient will perform lower extremity dressing Independently Patient will transfer to toilet Independently Container Filler Goal: Patient to be independent/baseline with functional mobility and self care and be able to safely discharge to prior level of care If patient is discharged from the facility, this note serves as a discharge summary if further occupational therapy visits did not occur. Following therapy session, patient left in patient bedside chair, with chair alarm on, with call light within reach, with family in room and with RNMaeve aware. * Tod Ingram MD - 09/17/2021 9:19 PM CDT [facility] Post Op Check 09/17/2021 Admit: 09/15/2021 4:22 PM Hospital Day: 3 POD: Day of Surgery NAME: Chuck Cannon Procedure: Exploratory laparotomy, small bowel resection, enterolysis Subjective: No acute events post-operatively. Patient reports pain is uncontrolled. Afebrile with tachycardia. Objective: BP 151/80 Pulse 130 Temp 98.2 ??F (36.8 ??C) (Oral) Resp 18 Ht 5' 11 (1.803 m) Wt 260 lb 2.3 oz (118 kg) SpO2 94% BMI 36.28 kg/m2 Urine output post op: 200mL Physical Exam: Gen: Lying in bed, NAD CV: RRR Resp: Nonlabored respirations Abd: Soft, appropriately tender to palpation, non distended, non-peritonitic. Midline incision withstaples bandaged, clean, dry and intact. : Ash in place Ext: No c/c/e, extremities wwp Neuro: Moving all extremities spontaneously, no focal deficits Assessment Chuck Cannon is a 26 year old male s/p exploratory laparotomy, small bowel resection, enterolysis forsmall bowel obstruction. POD#0. Afebrile and tachycardic with uncontrolled pain. Plan: - Multimodal pain regimen will need adjustments - Pain team was called - NPO, mIVF -Tachycardia - possibly secondary to pain- PUBLIC WOR[employer] LABORER adjusted per pain recs - LR 1L bolus ordered - NG to remain in place, awaiting return of bowel function - CBC - Strict Is/Os - dressings, dry and intact - continue post op care, This note was written with the aid of Medical student Marley MS4 . Patient care was discussed withchief marketing consultant Tod Ingram MD 09/17/2021 9:19 PM * Celeste Payne RN - 09/17/2021 11:41 AM CDT Problem: Tobacco Use Goal: Inpatient tobacco-use cessation counseling participation Outcome: Completed * Akhil Potter MD - 09/17/2021 7:37 AM CDT Images from the original note were not included. ACUTE CARE SURGERY PROGRESS NOTE ADMIT: 09/15/2021 4:22 PM LOS: 2 days 09/17/2021 HISTORY: Chuck Cannon is a 26 year old male with PMH of HTN, HLD, DM2, GERD, gastroschisis, and two small bowel resections for SBO prior to the age of 4 who presented as a transfer from [facility] for evaluation of small bowel obstruction. Patient originally presented to [facility] on 09/11 with 3 day history of abdominal pain. Patient underwent a small bowel follow through on 09/13 which did not show contrast in the colon in 4 hours, but some contrast in the colon in the 8 hours. Patient had an NGtube placed on 09/14 and he was transferred to [facility] today. Patient states that he has not had any other issues since he was a child, nor has he had any other abdominal surgeries. Patient states that hehad multiple rounds of emesis and then had NG tube placed 09/14. SUBJECTIVE: -No acute overnight events, afebrile and VSS -SBFT obtained yesterday, with old contrast in the colon, no confirmation of new contrast -Nauseated after NG clamped, returned to suction with a total of 1,200mL of output in the last 24 hours. -Abdominal pain controlled -No BM or flatus this morning, -NPO, will plan to add on to OR today for exploratory laparotomy, possible bowel resection, possible ostomy, possible open cholecystectomy. OBJECTIVE: Blood pressure 115/73, pulse 78, temperature 97.8 ??F (36.6 ??C), temperature source Oral, resp. rate 18, height 5' 11 (1.803 m), weight 260 lb 2.3 oz (118 kg), SpO2 97 %. Temp: [97.8 ??F (36.6 ??C)-98.2 ??F (36.8 ??C)] 97.8 ??F (36.6 ??C) Pulse: [78-106] 78 Resp: [18] 18 BP: (115-143)/(73-94) 115/73 DIET: DIET NPO Except: ICE CHIPS, SIPS WITH MEDS Ins/Outs: 09/16 0701 - 09/17 0700 In: - Out: 1500 [Urine:300; Drains:1200] Physical Exam GEN: In no acute distress. Resting comfortably in bed HEENT: Normocephalic. Atraumatic. NG in place with dark gastric output Resp: Normal work of breathing on room air, saturating well on RA CV: Regular rate and rhythm. Normotensive Abd: Soft and distended, moderately tender to palpation in the supraumbilical and epigastric area. Non distended. No rebound or guarding. Ext: no cyanosis, clubbing, or edema, 2+ distal pulses bilaterally, normal ROM in all extremities Skin: Warm and well perfused Neuro: A&Ox3, CN 2-12 grossly intact, no focal deficits Psych: appropriate mood and affect RECENT LABS: Recent Labs Component Name 09/17/218 09/16/21 0238 09/15/21 1848 WBC 13.8* 10.6* 11.1* HGB 14.5 13.4 13.8 HCT 43.1 40.3 41.0 MCV 83.9 85.0 84.9 Recent Labs Component Name 09/17/2122709/16/218 09/15/21 1848 NA 138 141 139 CL 103 102 101 CO2 20* 20* 24 BUN 16 7 7 CREATININE 0.91 0.77 0.64* CALCIUM 10.1 9.8 9.7 MAGNESIUM 2.5 2.1 - PHOS 4.5 3.8 - Recent Labs Component Name 09/15/21 1848 PROT 7.7 ALB 3.7 TBILI 1.2 AST 22 ALT 47 ALKPHOS 80 No results for input(s): PROTIME, INR, PTT in the last 52320 hours. RECENT IMAGING: SMFT 09/16/21: Small bowel follow through showing old contrast in the colon, no confirmation of new contrast CT Abdomen Pelvis w Contrast 09/15/21 Findings concerning for partial small bowel obstruction--Specifically, small bowel loops are dilated up to 3.7 cm with a narrow caliber transition point at midline anteriorly. There is contrast in the colon. The cecum is located to the left of midline which could be due to malrotation and/or post surgical. Correlate with history of prior abdominal surgeries. ASSESSMENT: Chuck Cannon is a 26 year old male with PMH of HTN, HLD, DM2, GERD, gastroschisis who presented as a transfer from H for evaluation of small bowel obstruction. Leandra originally presented to [facility] on 09/11 with 3 day history of abdominal pain. Patient underwent a small bowel follow through on 09/13 which did not show contrast in the colon in 4 hours, but some contrast in the colon in the 8 hours. Patient had an NG tube placed on 09/14 and he was transferred to [facility] 09/15/21. Patient underwent CT A/P on 09/15 which showed concerning for a partial small bowel obstruction. Patient was decompressed with NG suction for 24 hours and underwent a small bowel follow through with didnot show new contrast entering into the colon. Patient has been NPO since midnight, consented and will go to the OR today for exploratory laparotomy, possible bowel resection, possible ostomy, possible open cholecystectomy. #SBO -To or today for exploratory laparotomy, possible bowel resection, possible ostomy, possible open cholecystectomy -NPO, mIVF D5 1/2NS w/ 20KCl at 100mL/hr -NG to LIWS -CT A/P shows partial small bowel obstruction -SBFT showing no new contrast into the colon -NG to LIWS -Bowel Regimen -IV Zofran -IV pepcid -PLOV #Pain control -Dialudid .1mg Q2 PRN -Viscous lidocaine 2% 5mL TID PRN #HTN -PRN hydralazine and labetolol #[place] -Continue home singulair 10mg HS #HLD -Continue home pravastatin 40mg HS #DM2 -SSI Staff: Dr. Tali Potter MD General Surgery PGY-3 09/16/2021 7:37 AM Associated attestation - Cindi Cesar MD - 09/17/2021 9:46 AM CDT I have seen and examined the patient on 09/17/2021 in conjunction with the Resident. I agree with thefindings and plan of care as documented in the resident's note and as discussed with the resident. My findings are below: Patient did not pass small bowel series, dilated proximal bowel, transition terminal ileum. Having some flatus and one BM, but timeframe extended now and not recovering. 1.2 L NGT output. Has failed medical management of his SBO. To OR today for ex-lap, enterolysis, possible bowel resection, possible cholecystectomy (patient with history of gallbladder polyps). Though priority is the small bowel. Recent Labs Component Name 05/05/22709/16/2123709/15/21 1848 WBC 13.8* 10.6* 11.1* HGB 14.5 13.4 13.8 HCT 43.1 40.3 41.0 PLTCOUNT 413* 360 323 Recent Labs Component Name 09/17/2122709/16/2123709/15/21 1848 POTASSIUM 3.9 3.8 3.7 CO2 20* 20* 24 BUN 16 7 7 CREATININE 0.91 0.77 0.64* EGFR >90 >90 >90 GLUCOSE 128* 77 79 CALCIUM 10.1 9.8 9.7 Patient Vitals for the past 24 hrs: Temp Pulse Resp BP SpO2 09/17/21 0930 98.3 ??F (36.8 ??C) -- -- -- -- 09/17/21 0430 97.8 ??F (36.6 ??C) 78 18 115/73 97 % 09/17/21 0030 97.9 ??F (36.6 ??C) 98 18 131/85 96 % 09/16/21 1939 98.1 ??F (36.7 ??C) 106 18 143/88 96 % Active Hospital Problems Diagnosis Date Noted Small bowel obstruction 09/14/2021 Priority: 1. History of gastroschisis 09/16/2021 Priority: Not Prioritized KARRIE (obstructive sleep apnea) 09/12/2021 Priority: Not Prioritized Controlled type 2 diabetes mellitus without complication, without long-term current use of insulin 06/16/2021 Priority: Not Prioritized Arthrogryposis 06/15/2021 Priority: Not Prioritized Resolved Hospital Problems No resolved problems to display. I spent > 35 minutes directly involved in this patient's care, > 50% of the time was spent inthe counseling and the coordination of the care of this patient. Cindi Cesar MD filling machine operator * Virginia López RN - 09/16/2021 4:24 PM CDT Case Management Initial Assessment Case Management screen completed & Welcome Letter given. 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 Yes Anticipated Discharge Date: 09/18/21 Transportation at Discharge: Family Transportation to MD appointments: Drives self Equipment at Home: Equipment At Home: None Additional equipment needed at home but does not have: If no PCP, action taken: Dr. Benjamin Pharmacy benefit: Yes Medication affordability concerns: No Hunger Screening: Within the past 12 months, you worried that your food would run out before you got the money to buymore.: Never true Within the past 12 months, the food you bought just didn't last and you didn't have money to get more.: Never true Food Bank Resources Provided: Patient refused Plunger Scoop Operator Referral: No If patient requires HHC at discharge, he/she requests: Will continue to follow. For any questions or needs please contact: Crate Maker Name/Phone number: Virginia López RN Case credit relationship manager: [phone] 09/16/2021 * Rene Szymanski, PharmD - 09/16/2021 2:17 PM CDT MEDICATION TO BEDSIDE DELIVERY: COMPLETE Medication to Bedside delivery was completed for Chuck Cannon. ??? A total of 4 prescriptions were delivered to the patient for discharge. ??? Medications were given to NURSE (CELESTE) ??? This delivery included a controlled substance: NO ??? This delivery included medication that should be stored in the fridge: NO Thank you for allowing the outpatient pharmacy to participate in the care of Chuck Cannon. If you have any questions, please contact the outpatient pharmacy at [phone]. Rene Szymanski, Ham Facer [facility] at [address], [address] Floor [place], [place] [address] Hours of Operation Tuesday - Tuesday: 8:00am to 6:00pm Tuesday: 9:00am to 1:00pm [facility]: [facility], [facility] *Ensure the patient and clinic's nearby ZIP codes box is unchecked* * Celeste Payne RN - 09/16/2021 11:10 AM CDT Pt had small, formed, hard, bowel movement. * Akhil Potter MD - 09/16/2021 5:47 AM CDT Images from the original note were not included. ACUTE CARE SURGERY PROGRESS NOTE ADMIT: 09/15/2021 4:22 PM LOS: 1 day 09/16/2021 HISTORY: Chuck Cannon is a 26 year old male with PMH of HTN, HLD, DM2, GERD, gastroschisis, and two small bowel resections for SBO prior to the age of 4 who presented as a transfer from OSH for evaluation of small bowel obstruction. Patient originally presented to [facility] on 09/11 with 3 day history of abdominal pain. Patient underwent a small bowel follow through on 09/13 which did not show contrast in the colon in 4 hours, but some contrast in the colon in the 8 hours. Patient had an NGtube placed on 09/14 and he was transferred to [facility] today. Patient states that he has not had any other issues since he was a child, nor has he had any other abdominal surgeries. Patient states that hehad multiple rounds of emesis and then had NG tube placed 09/14. SUBJECTIVE: -No acute overnight events -Abdominal pain controlled -No BM, but states passing flatus this morning. -Throat discomfort -Improved abdominal pain, rated 7/10 -Improved nausea; denies recent vomiting -700ml NG output of dark green fluid OBJECTIVE: Blood pressure 126/80, pulse 92, temperature 98.2 ??F (36.8 ??C), resp. rate 18, height 5' 11 (1.803 m), weight 260 lb 2.3 oz (118 kg), SpO2 96 %. Temp: [98.2 ??F (36.8 ??C)-98.8 ??F (37.1 ??C)] 98.2 ??F (36.8 ??C) Pulse: [90-97] 92 Resp: [18-20] 18 BP: (118-153)/(78-99) 126/80 DIET: DIET NPO Except: NO EXCEPTIONS Ins/Outs: 09/15 07 - 09/16 07 In: - Out: 500 [Urine:500] Physical Exam General: resting in bed, NAD HEENT: NC, AT, NG in place with dark gastric output Heart: RRR, no m/r/g Lungs: clear to auscultation, no wheezing Abdomen: soft, distended, epigastric tenderness to palpation Extremities: no edema, warm RECENT LABS: Recent Labs Component Name 09/16/21 0238 09/15/21 1848 WBC 10.6* 11.1* HGB 13.4 13.8 HCT 40.3 41.0 MCV 85.0 84.9 Recent Labs Component Name 09/16/21 0238 09/15/21 1848 NA 141 139 CL 102 101 CO2 20* 24 BUN 7 7 CREATININE 0.77 0.64* CALCIUM 9.8 9.7 MAGNESIUM 2.1 - PHOS 3.8 - Recent Labs Component Name 09/15/21 1848 PROT 7.7 ALB 3.7 TBILI 1.2 AST 22 ALT 47 ALKPHOS 80 No results for input(s): PROTIME, INR, PTT in the last 22077 hours. RECENT IMAGING: CT Abdomen Pelvis w Contrast 09/15/21 Findings concerning for partial small bowel obstruction--Specifically, small bowel loops are dilated up to 3.7 cm with a narrow caliber transition point at midline anteriorly. There is contrast in the colon. The cecum is located to the left of midline which could be due to malrotation and/or post surgical. Correlate with history of prior abdominal surgeries. ASSESSMENT: Chuck Cannon is a 26 year old male with PMH of HTN, HLD, DM2, GERD, gastroschisis who presented as a transfer from H for evaluation of small bowel obstruction. Leandra originally presented to [facility] on 09/11 with 3 day history of abdominal pain. Patient underwent a small bowel follow through on 09/13 which did not show contrast in the colon in 4 hours, but some contrast in the colon in the 8 hours. Patient had an NG tube placed on 09/14 and he was transferred to [facility] 09/15/21. Patient underwent CT A/P on 09/15 which showed concerning for a partial small bowel obstruction. Patient reports passing flatus this morning. Plan to obtain a small bowel follow through. If patient obstr uction does not resolve in the next 24 hours, will plan for operative intervention. NG to LIWS.? #SBO -NPO, mIVF D5 1/2NS w/ 20KCl at 100mL/hr -NG to LIWS -CT A/P shows partial small bowel obstruction -Obtain SBFT today -NG to LI -Bowel Regimen -IV Zofran -IV pepcid -PLOV -Labs ?? #Pain control -Dialudid .1mg Q2 PRN -Viscous lidocaine 2% 5mL TID PRN #HTN -PRN hydralazine and labetolol ?? #[place]ham -Continue home singulair 10mg HS #HLD -Continue home pravastatin 40mg HS #DM2 -SSI Staff: Dr. Tali Potter MD General Surgery PGY-3 09/16/2021 10:55 AM Associated attestation - Cindi Cesar MD - 09/16/2021 6:54 PM CDT I have seen and examined the patient on 09/16/2021 in conjunction with the Resident. I agree with thefindings and plan of care as documented in the resident's note and as discussed with the resident. My findings are below: Small bowel challenge / follow through today with hyperosmolar contrast, possibly diagnostic and therapeutic. Notable terminal ileum to be transition point on CT, but contrast in proximal colon. OR tomorrow if fails, if passes, clears ADAT. Add viscous lidocaine TID prn for throat discomfort related to NGT, can gurgle/swallow. Recent Labs Component Name 09/16/21 0238 09/15/21 1848 WBC 10.6* 11.1* HGB 13.4 13.8 HCT 40.3 41.0 PLTCOUNT 360 323 Recent Labs Component Name 09/16/21 0238 09/15/21 1848 POTASSIUM 3.8 3.7 CO2 20* 24 BUN 7 7 CREATININE 0.77 0.64* EGFR >90 >90 GLUCOSE 77 79 CALCIUM 9.8 9.7 Patient Vitals for the past 24 hrs: Temp Pulse Resp BP SpO2 09/16/21 0832 98.2 ??F (36.8 ??C) 106 18 127/94 98 % 09/16/21 0300 98.2 ??F (36.8 ??C) 92 18 126/80 96 % 09/15/21 2300 98.5 ??F (36.9 ??C) 90 18 133/80 96 % 09/15/21 1915 98.5 ??F (36.9 ??C) 93 18 118/78 98 % Active Hospital Problems Diagnosis Date Noted Small bowel obstruction 09/14/2021 Priority: 1. History of gastroschisis 09/16/2021 Priority: Not Prioritized KARRIE (obstructive sleep apnea) 09/12/2021 Priority: Not Prioritized Controlled type 2 diabetes mellitus without complication, without long-term current use of insulin 06/16/2021 Priority: Not Prioritized Arthrogryposis 06/15/2021 Priority: Not Prioritized Resolved Hospital Problems No resolved problems to display. I spent > 35 minutes directly involved in this patient's care, > 50% of the time was spent inthe counseling and the coordination of the care of this patient. Cindi Cesar MD filling machine operator * Celeste Payne RN - 09/15/2021 2:46 PM CDT Report received from BRYANT Dahl at [facility]. Patient transfer set up for 2:30pm to [facility]. documented in this encounter H&P Notes * Akhil Potter MD - 09/15/2021 5:58 PM CDT Images from the original note were not included. Acute Care Surgery Inpatient Consult Note Chuck Cannon (26 year old male) Date of : 1995 Admit Date: 09/15/2021 Date of consult: 09/15/2021 Hospital day: 0 Room: [facility]/ Reason for consult: Small bowel obstruction Requesting Physician: Ananda Gilbert DO History of Present Illness: Patient is a 26 year old male with PMH of HTN, HLD, DM2, GERD, gastroschisis who presented as a transfer from [facility] for evaluation of small bowel obstruction. Patient originally presented to [facility] on 09/11 with 3 day history of abdominal pain. Patient underwent a small bowel follow through on 09/13 which did not show contrast in the colon in 4 hours, but some contrast in the colon in the 8 hours. Patient had an NG tube placed on 09/14 and he was transferred to [facility] today. Patient has a history of gastroschisis and reportedny two small bowel resections for small bowel obstruction prior to the age of 4. Patient states that he has not had any other issues since he was a child, nor has hehad any other abdominal surgeries. Patient states that he had multiple rounds of emesis yesterday and then had NG tube placed 09/14. Patient has not passed gas in two days and has not had a BM on 09/11.Patient denies any recent fever or chills. Past Medical History: HTN, HLD, DM2, KARRIE, GERD, Gastroschesis PCP: Bertha Ochoa MD Past Surgical History: Gastroschisis, Small bowel resection Family History: No family history on file. Social History: Social History Tobacco Use ??? Smoking status: Never Smoker ??? Smokeless tobacco: Former User Types: Chew Quit date: 09/15/2020 Substance Use Topics ??? Alcohol use: Not on file Allergies: No Known Allergies Medications: No medications prior to admission. Review of Systems: positives are in bold; [...] polyuria, polydipsia, polyphagia, heat/cold intolerance OBJECTIVE Vitals: 09/15/21 1701 BP: 153/99 Pulse: 97 Resp: 20 Temp: 98.8 ??F (37.1 ??C) Temp (24hrs), Av.8 ??F (37.1 ??C), Min:98.8 ??F (37.1 ??C), Max:98.8 ??F (37.1 ??C) Systolic (36hrs), Av , Min:153 , Max:153 Diastolic (36hrs), Av, Min:99, Max:99 There is no height or weight on file to calculate BMI. PREVIOUS WEIGHTS: Wt Readings from Last 5 Encounters: No data found for Wt Physical Examination: GEN: In no acute distress. Resting comfortably in bed HEENT: Normocephalic. Atraumatic. NG tube in palce Resp: Normal work of breathing on room air, saturating well on RA CV: Regular rate and rhythm. Normotensive Abd: Soft distended, minimally tender to palpation in the epigastric and supraumbilical area, priorscars in the umbilical area Ext: no cyanosis, clubbing, or edema, 2+ distal pulses bilaterally, normal ROM in all extremities Skin: Warm and well perfused Neuro: A&Ox3, CN 2-12 grossly intact, no focal deficits Psych: appropriate mood and affect Data Review: Labs: CBC No results for input(s): WBC, HGB, HCT, PLTCOUNT in the last 85587 hours. BMP No results for input(s): NA, POTASSIUM, CL, CO2, BUN, CREATININE, GLUCOSE, CALCIUM, MAGNESIUM, PHOSin the last 32343 hours. LFTs No results for input(s): PROT, ALB, TBILI, ALT, AST, ALKPHOS in the last 86302 hours. Coag No results for input(s): PT, PTT, INR in the last 46250 hours. Cardiac markers No results for input(s): CKTOTAL, CKMB, TROPONINI in the last 60831 hours. Iron Studies No results for input(s): FERRITIN, TRANSFERRIN, IRON, RETICCTPCT, RETICULOCYTE in the last 82630 hours. Urine: UA No results for input(s): COLORU, CLARITYU, PHUR, PROTEINTO, GLUCOSEU, KETONES, BILIRUBINUR, BLOODU,EGFR, NITRITE, UROBILINOGEN, WBCU, RBCU, URINEBACT, YEASTBUDDING in the last 65294 hours. Invalid input(s): LABSPEC, LUEKOCYTE, MUCOUSU UDS No results for input(s): OPIATESUR, LABAMPH, LABBARB, LABBENZ, COCAINESCRN, METHADONE, LABPHEN, LABCANN in the last 03993 hours. Other Blood Alcohol (BAL): No results for input(s): ETOH in the last 23792 hours. Serum Acetaminophen: No results for input(s): ACETAMINO in the last 19568 hours. Serum Salicylate:No results for input(s): SALICYLATE in the last 51455 hours. Microbiology: Microbiology Results (Displays last 21 days for this encounter ONLY) No results found for the last 504 hours. Radiology Impressions: No results found. Pathology: No recent pathology Assessment: Chuck Cannon is a 26 year old male with PMH of HTN, HLD, DM2, GERD, gastroschisis who presented as a transfer from [facility] for evaluation of small bowel obstruction. Leandra originally presented to [facility] on 09/11 with 3 day history of abdominal pain. Patient underwent a small bowel follow through on 09/13 which did not show contrast in the colon in 4 hours, but some contrast in the colon in th e 8 hours. Patient had an NG tube placed on 09/14 and he was transferred to [facility] today. Patient has ahistory of gastroschisis and reportedny two small bowel resections for small bowel obstruction prior to the age of 4. Patient is currently afebrile, hemodynamically stable, non peritonitic on exam, so no acute surgical intervention is indicated. Will obtain CT A/P with IV contrast and leave NG to [facility]. #SBO -NPO, mIVF -NG to LIWS -Obtain CT A/P with IV contrast -IV pepcid -PLOV -Labs #HTN -PRN hydralazine and labetolol Staff: Dr. Tali Potter MD General Surgery PGY-3 Associated attestation - Cindi Cesar MD - 09/16/2021 8:11 AM CDT I have seen and examined the patient on 09/15/2021 in conjunction with the Resident. I agree with thefindings and plan of care as documented in the resident's note and as discussed with the resident. My findings are below: Small bowel obstruction: --NGT LIWS, flush Q4hrs with water or saline. --Replete NGT output 1:1 for first 24 hours with LR or plasmalyte. --If difficulty placing NGT use viscous lidocaine gurgle/swallow and 2% lidocaine jelly as lubricant/snort application to nares for easier placement. --Keep normal K/Mg/[place]/Ca and check daily labs --IVF at maintenance with sugar source as tolerated while NPO. --Okay for chewing gum, hard candy and sips of ice chips. --Pain control with minimal opioids (use toradol and tylenol primarily, avoid IV opioids if able). --Nausea control with antiemetics Zofran prn. --Scheduled per rectal bowel regimen to ensure no fecal impaction as detriment to intestinal flow with Q8hrs bisacodyl per rectum, initial soap suds x1 and/or fleets enema x1 if CT shows significant fecal load. --Daily KUB. --After period of NGT decompression, plan gastrografin small bowel follow through (SBFT) [possibly both diagnostic and therapeutic]. May need operation [exploratory laparotomy with enterolysis, possible bowel resection, possible ostomy] this admission if develops peritonitis, signs of bowel ischemia or perforation/infection, or does not pass SBFT with gastrografin study. Admit, inpatient, expect > 2 Midnights. Cindi Cesar MD filling machine operator documented in this encounter Consult Notes * Ana Apodaca RN - 09/21/2021 12:00 PM CDT Inpatient Sap Technical Developer Note Today's Date: 09/21/21 Chuck Cannon is a 26 year old male currently hospitalized. A consult with Diabetes Education was requested due to Other (use comments). Chuck's nurse admission screening, recent diagnosis of diabetes mellitus. Current Hospitalization Concerns: Patient admitted to hospital with small bowel obstruction. Patient had exp laparotomy and lysis of adhesions on 09/17/2021. Patient is having pain and not up to doing diabetes education at this time. Recent Labs: Pertinent labs were reviewed. A1c 6.5% on 09/16/2021. Participant Reported Labs/Blood Glucose Control: Glucometer ordered from outpatient pharmacy, will review with patient how to use this when he feelsup to doing diabetes education. Compliance With Medications: Education/Support: Education efforts focused on diabetes management when the patient feels like doing the education. . Chuck's overall adherence potential is assessed as follows: Thank you for the opportunity to participate in your patient's care. Ana Apodaca RN, , [place] Sap Technical Developer * Gloria Monsalve - 09/18/2021 8:38 AM CDTAssociated Order(s): IP CONSULT TO [facility] Substance Abuse - Brief Intervention Referral due to: hx of ETOH use ADVISE regarding risky drinking: Discussed quantity and frequency of alcohol consumed by the patient in comparison with national norms: Yes ASSESS regarding the risks and consequences of risky drinking: Discussed negative physical, emotional and occupational consequences; discussed overall severity of problem: Yes ASSIST the patient in setting goal: Agrees to reduce quantity/frequency of drinking: No ARRANGE plans for follow up: Patient will follow up with: Declined follow-up Brief Intervention Completed: Has alcohol brief intervention been completed by psychiatric social worker/therapist?: Yes Gloria Monsalve Phone: [phone] 09/18/2021 * Ana Apodaca RN - 09/17/2021 9:58 AM CDT Inpatient Sap Technical Developer Note Today's Date: 09/17/21 Chuck Cannon is a 26 year old male currently hospitalized. A consult with Diabetes Education was requested due to Other (use comments). Chuck's nurse admission screening, recnet diagnosis of diabetes 1 and 1/2 month ago. Current Hospitalization Concerns: Patient admitted to hospital with small bowel obstruction. Patient in OR and unable to do diabetes education at this time. Recent Labs: Pertinent labs were reviewed. A1c 6.5%. Participant Reported Labs/Blood Glucose Control: Compliance With Medications: Education/Support: Education efforts focused on diabetes education when patient is able to participate in diabetes education session.. Chuck's overall adherence potential is assessed as follows: Thank you for the opportunity to participate in your patient's care. Ana Apodaca RN, , [facility] Sap Technical Developer * Ana Apodaca RN - 09/16/2021 11:51 AM CDT Inpatient Sap Technical Developer Note Today's Date: 09/16/21 Chuck Cannon is a 26 year old male currently hospitalized. A consult with Diabetes Education was requested due to Other (use comments). Chuck's nurse admission screening. Patient stated he was diagnosedwith diabetes about 1 and 1/2 months ago. Current Hospitalization Concerns: Patient admitted to hospital with small bowel obstruction. Recent Labs: Pertinent labs were reviewed. A1c none in medical record. Participant Reported Labs/Blood Glucose Control: Patient does not have glucometer, stated he was told he didn't zoe one when he was diagnosed with diabetes. Glucometer, lancet device, lancets and test strips ordered through [facility] outpatient pharmacy. Compliance With Medications: Patient takes Januvia 25 mg daily at home for diabetes. Education/Support: Education efforts focused on disease process and treatment options. Patient is currently NPO, having pain. Diabetes education packet left at bedside, will follow uo tomorrow for diabetes education . Chuck's overall adherence potential is assessed as follows: Thank you for the opportunity to participate in your patient's care. Ana Apodaca RN, , NS Sap Technical Developer documented in this encounter OR Notes * Brief Op Note - Cindi Cesar MD - 09/17/2021 10:49 AM CDT Brief Op Note Procedure: LAPAROTOMY EXPLORATORY, SMALL BOWEL RESECTION, ENTROLYSIS Patient Name: Chuck Cannon Date of Service: 09/17/2021 Pre-Op Diagnosis: Small bowel obstruction [K56.609] Post-Op Diagnosis: same Surgeon(s) and Role: * Cindi Cesar MD - Primary * Maria A Serna MD - Resident - Assisting Health Aid(s): Marley MS4 Anesthesia Type: general ETT Complications: none Findings: strictured area of distal / mid ileum adherent to the anterior abdominal wall, site of obstruction. Resected, primary anastomosis EBL: blood loss of 10 ml Urine Output : see anesthesia record IV Fluid Intake: see anesthesia record Drains: Enteral - Nasal/Oral Nostril/Nare (Active) Output Amount (mL) 1200 ML 09/16/21 1802 Output Description Brown;Green 09/16/211999 Tube Status To low intermittent suction 09/17/21 1220 Surrounding Skin Dry;Intact 09/17/21 1220 Site Assessment WDL 09/17/21 1220 Tube Repositioned No 09/16/211999 Specimen(s): ID Type Source Tests Collected by Time Destination A : ileum Biopsy, Excision Soft Tissue, Other PATHOLOGY TISSUE Cindi Cesar MD 09/17/2021 1123 Implant(s): * No implants in log * Cindi Cesar MD filling machine operator Trauma / Critical Care / Acute Care / Burn Surgeon * Operative - Maria A Serna MD - 09/17/2021 10:49 AM CDT GENERAL SURGERY OPERATIVE REPORT NAME: Chuck Cannon : 1995 AGE: [age] year old PROC DATE: 09/17/2021 ATTENDING SURGEON: Cindi Cesar MD RESIDENT SURGEON: Maria A Serna MD PREOPERATIVE DIAGNOSIS: Small bowel obstruction POSTOPERATIVE DIAGNOSIS: Small bowel obstruction PROCEDURES: Exploratory laparotomy, small bowel resection, enterolysis ANESTHESIA: General INDICATIONS: Chuck Cannon is a 26 year old male with 4 day history of obstipation, nausea and emesis who had CT findings consistent with SBO. Exploration was indicated. PROCEDURE IN DETAIL: The patient was taken to the operating room and identified by name and date ofbirth. An anesthesia timeout was performed identifying the correct patient, site, and procedure. All were in agreement and elected to proceed. The patient was transferred to the operating table, placed in the supine position and general anesthesia was induced without complication. Sequential compression devices were placed and pre-operative Ertapenem was given. After optimal positioning and padding of all pressure points, the abdomen was prepped and draped in the usual sterile fashion. A surgical timeout was performed identifying the correct patient, procedure, and site. All were in agreementand elected to proceed. A midline incision was made through the patient's previous scar and carried down to fascia using electrocautery. The fascia was entered sharply in the superior aspect. There was noted to be a loop ofsmall bowel adherent to the midline at the level of the umbilicus. This was taken off the abdominalwall sharply without perforation. The small bowel was eviscerated and run from the jejunum to the te rminal ileum and the transition point was noted to be at a stricture in the mid ileum where the bowel was previously adhered to the umbilicus. This area of strictured ileum was transected proximally and distally with a linear cutting stapler. The mesentery was ligated with bertha clamps and 2-0 silksutures. We then performed a stapled side to side antimesenteric anastomosis with a stapled common enterotomy. The common channel was palpated and noted to be patent. The abdomen was irrigated and suctioned until clear. The fascia was closed with #1 looped PDS. The skin was closed with stapled and dressed with an island dressing. At this point the procedure was concluded, anesthesia was terminated, the patient was extubated andtransported to the PACU in stable condition. All sponge/instrument and needle counts were correct at the conclusion of the case. Dr. Tapia was present and scrubbed for all portions of the procedure. COMPLICATIONS: none CONDITION: stable ESTIMATED BLOOD LOSS: 10cc URINE OUTPUT: see anesthesia record FLUIDS/BLOOD PRODUCTS: see anesthesia record SPECIMENS: ileum DISPO: floor Maria A Serna MD General Surgery Resident 09/17/2021 Associated attestation - Cindi Cesar MD - 09/17/2021 5:42 PM CDT I was scrubbed in for the entire procedure on 09/17/21. documented in this encounter Plan of Treatment Not on file documented as of this encounter Procedures Procedure Name Priority Date/Time Associated Diagnosis Comments GLUCOSE - POINT OF CARE Routine 09/22/2021 7:52 AM CDT GLUCOSE - POINT OF CARE Routine 09/22/2021 4:23 AM CDT CBC W/O DIFFERENTIAL AM Draw 09/22/2021 2:52 AM CDT Small bowel obstruction (HCC) BASIC METABOLIC PANEL (CALCIUM TOTAL) AM Draw 09/22/2021 2:52 AM CDT Small bowel obstruction (HCC) PHOSPHORUS BLOOD Routine 09/22/2021 2:52 AM CDT Small bowel obstruction (HCC) MAGNESIUM BLOOD Routine 09/22/2021 2:52 AM CDT Small bowel obstruction (HCC) GLUCOSE - POINT OF CARE Routine 09/22/2021 12:10 AM CDT GLUCOSE - POINT OF CARE Routine 09/21/2021 8:38 PM CDT GLUCOSE - POINT OF CARE Routine 09/21/2021 5:10 PM CDT GLUCOSE - POINT OF CARE Routine 09/21/2021 11:56 AM CDT GLUCOSE - POINT OF CARE Routine 09/21/2021 7:27 AM CDT GLUCOSE - POINT OF CARE Routine 09/21/2021 4:29 AM CDT CBC W/O DIFFERENTIAL AM Draw 09/21/2021 2:35 AM CDT Small bowel obstruction (HCC) BASIC METABOLIC PANEL (CALCIUM TOTAL) AM Draw 09/21/2021 2:35 AM CDT Small bowel obstruction (HCC) PHOSPHORUS BLOOD Routine 09/21/2021 2:35 AM CDT Small bowel obstruction (HCC) MAGNESIUM BLOOD Routine 09/21/2021 2:35 AM CDT Small bowel obstruction (HCC) GLUCOSE - POINT OF CARE Routine 09/21/2021 1:04 AM CDT GLUCOSE - POINT OF CARE Routine 09/20/2021 8:03 PM CDT GLUCOSE - POINT OF CARE Routine 09/20/2021 4:47 PM CDT GLUCOSE - POINT OF CARE Routine 09/20/2021 12:09 PM CDT CBC W/O DIFFERENTIAL AM Draw 09/20/2021 9:35 AM CDT Small bowel obstruction (HCC) BASIC METABOLIC PANEL (CALCIUM TOTAL) AM Draw 09/20/2021 9:35 AM CDT Small bowel obstruction (HCC) PHOSPHORUS BLOOD Routine 09/20/2021 9:35 AM CDT Small bowel obstruction (HCC) MAGNESIUM BLOOD Routine 09/20/2021 9:35 AM CDT Small bowel obstruction (HCC) GLUCOSE - POINT OF CARE Routine 09/20/2021 8:48 AM CDT GLUCOSE - POINT OF CARE Routine 09/20/2021 4:44 AM CDT GLUCOSE - POINT OF CARE Routine 09/20/2021 12:38 AM CDT GLUCOSE - POINT OF CARE Routine 09/19/2021 8:04 PM CDT GLUCOSE - POINT OF CARE Routine 09/19/2021 4:24 PM CDT GLUCOSE - POINT OF CARE Routine 09/19/2021 11:33 AM CDT GLUCOSE - POINT OF CARE Routine 09/19/2021 8:08 AM CDT GLUCOSE - POINT OF CARE Routine 09/19/2021 4:50 AM CDT CBC W/O DIFFERENTIAL AM Draw 09/19/2021 3:37 AM CDT Small bowel obstruction (HCC) BASIC METABOLIC PANEL (CALCIUM TOTAL) AM Draw 09/19/2021 3:37 AM CDT Small bowel obstruction (HCC) PHOSPHORUS BLOOD Routine 09/19/2021 3:37 AM CDT Small bowel obstruction (HCC) MAGNESIUM BLOOD Routine 09/19/2021 3:37 AM CDT Small bowel obstruction (HCC) GLUCOSE - POINT OF CARE Routine 09/19/2021 12:13 AM CDT GLUCOSE - POINT OF CARE Routine 09/18/2021 8:01 PM CDT GLUCOSE - POINT OF CARE Routine 09/18/2021 5:11 PM CDT GLUCOSE - POINT OF CARE Routine 09/18/2021 12:04 PM CDT GLUCOSE - POINT OF CARE Routine 09/18/2021 7:57 AM CDT OT EVAL AND TREAT Routine 09/18/2021 7:2 7 AM CDT GLUCOSE - POINT OF CARE Routine 09/18/2021 4:34 AM CDT CBC W/O DIFFERENTIAL AM Draw 09/18/2021 3:06 AM CDT Small bowel obstruction (HCC) BASIC METABOLIC PANEL (CALCIUM TOTAL) AM Draw 09/18/2021 3:06 AM CDT Small bowel obstruction (HCC) PHOSPHORUS BLOOD Routine 09/18/2021 3:06 AM CDT Small bowel obstruction (HCC) MAGNESIUM BLOOD Routine 09/18/2021 3:06 AM CDT Small bowel obstruction (HCC) GLUCOSE - POINT OF CARE Routine 09/18/2021 12:39 AM CDT XR ABDOMEN KUB PORTABLE STAT 09/17/2021 9:12 PM CDT Small bowel obstruction (HCC) GLUCOSE - POINT OF CARE Routine 09/17/2021 8:01 PM CDT CBC W AUTO DIFFERENTIAL STAT 09/17/2021 7:33 PM CDT GLUCOSE - POINT OF CARE Routine 09/17/2021 6:14 PM CDT GLUCOSE - POINT OF CARE Routine 09/17/2021 12:39 PM CDT PATHOLOGY TISSUE Routine 09/17/2021 11:2 3 AM CDT Small bowel obstruction (HCC) AL EXPLORATORY OF ABDOMEN 09/17/2021 10:49 AM CDT Small bowel obstruction (HCC) FL SMALL BOWEL SERIES STAT 09/17/2021 10:45 AM CDT Small bowel obstruction (HCC) GLUCOSE - POINT OF CARE Routine 09/17/2021 8:07 AM CDT GLUCOSE - POINT OF CARE Routine 09/17/2021 4:35 AM CDT CBC W/O DIFFERENTIAL AM Draw 09/17/2021 2:28 AM CDT Small bowel obstruction (HCC) BASIC METABOLIC PANEL (CALCIUM TOTAL) AM Draw 09/17/2021 2:28 AM CDT Small bowel obstruction (HCC) PHOSPHORUS BLOOD Routine 09/17/2021 2:28 AM CDT Small bowel obstruction (HCC) MAGNESIUM BLOOD Routine 09/17/2021 2:28 AM CDT Small bowel obstruction (HCC) GLUCOSE - POINT OF CARE Routine 09/17/2021 12:35 AM CDT GLUCOSE - POINT OF CARE Routine 09/16/2021 7:40 PM CDT GLUCOSE - POINT OF CARE Routine 09/16/2021 5:59 PM CDT GLUCOSE - POINT OF CARE Routine 09/16/2021 11:31 AM CDT GLUCOSE - POINT OF CARE Routine 09/16/2021 8:57 AM CDT GLUCOSE - POINT OF CARE Routine 09/16/2021 5:26 AM CDT HEMOGLOBIN A1C Routine 09/16/2021 2:38 AM CDT CBC W/O DIFFERENTIAL AM Draw 09/16/2021 2:38 AM CDT Small bowel obstruction (HCC) BASIC METABOLIC PANEL (CALCIUM TOTAL) AM Draw 09/16/2021 2:38 AM CDT Small bowel obstruction (HCC) PHOSPHORUS BLOOD Routine 09/16/2021 2:38 AM CDT Small bowel obstruction (HCC) MAGNESIUM BLOOD Routine 09/16/2021 2:38 AM CDT Small bowel obstruction (HCC) GLUCOSE - POINT OF CARE Routine 09/15/2021 11:[address] ABDOMEN PELVIS W CONTRAST Routine 09/15/2021 8:37 PM CDT Small bowel obstruction (HCC) CBC W/O DIFFERENTIAL STAT 09/15/2021 6:48 PM CDT Small bowel obstruction (HCC) COMPREHENSIVE METABOLIC PANEL STAT 09/15/2021 6:48 PM CDT Small bowel obstruction (HCC) documented in this encounter Results * GLUCOSE - POINT OF CARE (09/22/2021 7:52 AM CDT) Glucose WB/POC 109 70 - 115 mg/dL 09/22/2021 7:57 AM CDT [facility] Specimen Type Cap Fingerstick 2021 7:57 AM CDT [facility] Blood BLOOD SPECIMEN / Unknown 09/22/2021 7:52 AM CDT 09/22/2021 7:57 AM CDT Ananda Gilbert DO LAB - POINT OF CARE ORDERABLES Performing Organization Address City/[facility]/ZIP Co de Phone Number [address] [address], [facility] [phone] * GLUCOSE - POINT OF CARE (09/22/2021 4:23 AM CDT) Glucose WB/POC 114 70 - 115 mg/dL 09/22/2021 4:27 AM CDT [facility] Specimen Type Cap Fingerstick 2021 4:27 AM CDT [facility] Blood BLOOD SPECIMEN / Unknown 09/22/2021 4:23 AM CDT 09/22/2021 4:27 AM CDT Ananda Gilbert DO LAB - POINT OF CARE ORDERABLES [address] [address], [place] [phone] * PHOSPHORUS BLOOD (09/22/2021 2:52 AM CDT) Phosphorus 4.5 2.8 - 5.1 mg/dL 09/22/2021 3:58 AM CDT [facility] Blood BLOOD SPECIMEN / Unknown Lab Venipuncture / Unknown 09/22/2021 2:52 AM CDT 09/22/2021 3:19 AM CDT Ananda Orellana Vladimir LAB - CHEMISTRY ERIC [address] [address], [place] [phone] * MAGNESIUM BLOOD (09/22/2021 2:52 AM CDT) Magnesium 1.9 1.6 - 2.6 mg/dL 09/22/2021 3:58 AM CDT [facility] Blood BLOOD SPECIMEN / Unknown Lab Venipuncture / Unknown 09/22/2021 2:52 AM CDT 09/22/2021 3:19 AM CDT Ananda Orellana Vladimir LAB - CHEMISTRY ORDPatricia REYES [address] [address], [place] [phone] * (ABNORMAL) CBC W/O DIFFERENTIAL (09/22/2021 2:52 AM CDT) WBC 9.5 3.5 - 10.5 10? 3 /uL 09/22/2021 3:30 AM CDT [facility] RBC 4.29(L) 4.30 - 5.70 10? 6 /uL 09/22/2021 3:30 AM CDT [facility] Hemoglobin 12.0 12.0 - 17.6 g/dL 09/22/2021 3:30 AM T [facility] Hematocrit 36.4 35.2 - 51.7 % 09/22/2021 3:30 AM [facility] MCV 84.8 80.7 - 98.3 fL 09/22/2021 3:30 AM [facility] MCH 28.0 26.7 - 34.0 pg 09/22/2021 3:30 AM [facility] MCHC 33.0 30.8 - 35.9 g/dL 09/22/2021 3:30 AM [facility] Platelet Count 291 150 - 400 10? 3 /uL 09/22/2021 3:30 AM [facility] RDW-SD 37.0 36.0 - 50.0 fL 09/22/2021 3:30 AM [facility] RDW-CV 12.2 11.2 - 14.8 % 09/22/2021 3:30 AM [facility] MPV 10.8 9.4 - 12.9 fL 09/22/2021 3:30 AM [facility] nRBC Absolute 0.00 0 10? 3 /uL 09/22/2021 3:30 AM [facility] nRBC Auto 0.0 0 /100 WBC 09/22/2021 3:30 AM [facility] Blood BLOOD SPECIMEN / Unknown Lab Venipuncture / Unknown 09/22/2021 2:52 AM CDT 09/22/2021 3:18 AM CDT Ananda Gilbert DO LAB - HEMATOLOGY ORD ERABLES [facility] [address] [place] [address], [facility] [phone] * (ABNORMAL) BASIC METABOLIC PANEL (CALCIUM TOTAL) (09/22/2021 2:52 AM CDT) BUN 8 7 - 26 mg/dL 09/22/2021 3:58 AM [facility] Creatinine 0.80 0.71 - 1.16 mg/dL 09/22/2021 3:58 AM [facility] Sodium 141 136 - 145 mmol/L 09/22/2021 3:58 AM [facility] Potassium 4.1 3.5 - 4.5 mmol/L 09/22/2021 3:58 AM [facility] Comment:Hemolysis detected i n this specimen. Hemolysis may cause false elevations in potassium leading to pseudohyperkalemia or masked hypokalemia. Recommend repeat testing if clinically indicated. Chloride 105 98 - 107 mmol/L 09/22/2021 3:58 AM [facility] CO2 23 22 - 29 mmol/L 09/22/2021 3:58 AM [facility] Glucose 116(H) 70 - 115 mg/dL 09/22/2021 3:58 AM [facility] Calcium 9.6 8.4 - 10.2 mg/dL 09/22/2021 3:58 AM [facility] Anion Gap 17 8 - 18 09/22/2021 3:58 AM [facility] BUN/Creatinine Ratio 10 7 - 23 09/13 3:58 AM [facility] Osmolality Calculated 291 270 - 300 mOsm/kg 09/22/2021 3:58 AM [facility] eGFR by CKD-EPI >90 >=90 mL/min/1. 73 m2 09/22/2021 3:58 AM [facility] Blood BLOOD SPECIMEN / Unknown Lab Venipuncture / Unknown 09/22/2021 2:52 AM CDT 09/22/2021 3:19 AM CDT Ananda Gilbert DO LAB - CHEMISTRY [place] Organization Address City/State/ZIP Co de Phone Number [facility] [address] [place] [address], [facility] [phone] * GLUCOSE - POINT OF CARE (09/22/2021 12:10 AM CDT) Glucose WB/POC 99 70 - 115 mg/dL 09/22/2021 12:30 AM [facility] Specimen Type Cap Fingerstick 2021 12:30 AM [facility] Blood BLOOD SPECIMEN / Unknown 09/22/2021 12:10 AM CDT 09/22/2021 12:30 AM CDT Ananda Gilbert DO LAB - POINT OF CARE ORDERABLES [address] [address], [place] [phone] * (ABNORMAL) GLUCOSE - POINT OF CARE (09/21/2021 8:38 PM CDT) Glucose WB/POC 133(H) 70 - 115 mg/dL 09/21/2021 8:53 PM CDT [facility] Specimen Type Cap Fingerstick 2021 8:53 PM CDT [facility] Blood BLOOD SPECIMEN / Unknown 09/21/2021 8:38 PM CDT 09/21/2021 8:53 PM CDT Ananda Gilbert DO LAB - POINT OF CARE ORDERABLES [address] [address], [place] [phone] * GLUCOSE - POINT OF CARE (09/21/2021 5:10 PM CDT) Glucose WB/POC 107 70 - 115 mg/dL 09/21/2021 5:17 PM CDT [facility] Specimen Type Cap Fingerstick 2021 5:17 PM CDT [facility] Blood BLOOD SPECIMEN / Unknown 09/21/2021 5:10 PM CDT 09/21/2021 5:17 PM CDT Ananda Gilbert DO LAB - POINT OF CARE ORDERABLES [address] [address], [place] [phone] * GLUCOSE - POINT OF CARE (09/21/2021 11:56 AM CDT) Glucose WB/POC 95 70 - 115 mg/dL 09/21/2021 12:01 PM CDT [facility] Specimen Type Cap Fingerstick 2021 12:01 PM CDT [facility] Blood BLOOD SPECIMEN / Unknown 09/21/2021 11:56 AM CDT 09/21/2021 12:01 PM CDT Ananda Gilbert DO LAB - POINT OF CARE ORDERABLES Performing Organization Address City/[facility]/ZIP Co de Phone Number [facility] [address] [place] [address], [place] [phone] * GLUCOSE - POINT OF CARE (09/21/2021 7:27 AM CDT) Glucose WB/POC 113 70 - 115 mg/dL 09/21/2021 7:32 AM CDT [facility] Specimen Type Cap Fingerstick 2021 7:32 AM CDT [facility] Blood BLOOD SPECIMEN / Unknown 09/21/2021 7:27 AM CDT 09/21/2021 7:31 AM CDT Ananda Gilbert DO LAB - POINT OF CARE ORDERABLES Performing Organization Address City/[facility]/ZIP Co de Phone Number [facility] [address] [place] [address], [place] [phone] * GLUCOSE - POINT OF CARE (09/21/2021 4:29 AM CDT) Glucose WB/POC 99 70 - 115 mg/dL 09/21/2021 4:34 AM CDT [facility] Specimen Type Cap Fingerstick 2021 4:34 AM CDT [facility] Blood BLOOD SPECIMEN / Unknown 09/21/2021 4:29 AM CDT 09/21/2021 4:34 AM CDT Ananda Goodrichper DO LAB - POINT OF CARE ORDERABLES [facility] [address] [place] [address], [place] [phone] * PHOSPHORUS BLOOD (09/21/2021 2:35 AM CDT) Phosphorus 4.1 2.8 - 5.1 mg/dL 09/21/2021 3:11 AM CDT [facility] Blood BLOOD SPECIMEN / Unknown Venipuncture / Unknown 09/21/2021 2:35 AM CDT 09/21/2021 2:45 AM CDT Ananda Goodrichper LAB - CHEMISTRY ORDPatricia REYES Performing Organization Address [facility]/ZIP Co de Phone Number [address] [address], [facility] [phone] * MAGNESIUM BLOOD (09/21/2021 2:35 AM CDT) Pathologist [facility] Magnesium 1.8 1.6 - 2.6 mg/dL 09/21/2021 3:11 AM CDT [facility] Blood BLOOD SPECIMEN / Unknown Venipuncture / Unknown 09/21/2021 2:35 AM CDT 09/21/2021 2:45 AM CDT Ananda Orellana Vladimir [facility] - CHEMISTRY ORDPatricia REYES Performing Organization Address [facility]/State/ZIP Co de Phone Number [address] [address], [facility] [phone] * (ABNORMAL) CBC W/O DIFFERENTIAL (09/21/2021 2:35 AM CDT) [facility] WBC 10.1 3.5 - 10.5 10? 3 /uL 09/21/2021 2:52 AM [facility] RBC 3.80(L) 4.30 - 5.70 10? 6 /uL 09/21/2021 2:52 AM [facility] Hemoglobin 10.7(L) 12.0 - 17.6 g/dL 09/21/2021 2:52 AM [facility] Hematocrit 32.3(L) 35.2 - 51.7 % 09/21/2021 2:52 AM [facility] MCV 85.0 80.7 - 98.3 fL 09/21/2021 2:52 AM [facility] MCH 28.2 26.7 - 34.0 pg 09/21/2021 2:52 AM T [facility] MCHC 33.1 30.8 - 35.9 g/dL 09/21/2021 2:52 AM [facility] Platelet Count 316 150 - 400 10? 3 /uL 09/21/2021 2:52 AM [facility] RDW-SD 37.1 36.0 - 50.0 fL 09/21/2021 2:52 AM [facility] RDW-CV 11.9 11.2 - 14.8 % 09/21/2021 2:52 AM [facility] MPV 10.0 9.4 - 12.9 fL 09/21/2021 2:52 AM [facility] nRBC Absolute 0.00 0 10? 3 /uL 09/21/2021 2:52 AM [facility] nRBC Auto 0.0 0 /100 WBC 09/21/2021 2:52 AM [facility] Blood BLOOD SPECIMEN / Unknown Venipuncture / Unknown 09/21/2021 2:35 AM CDT 09/21/2021 2:45 AM CDT Ananda Gilbert DO LAB - HEMATOLOGY ORD ERABLES [facility] [address] [place] [address], [facility] [phone] * (ABNORMAL) BASIC METABOLIC PANEL (CALCIUM TOTAL) (09/21/2021 2:35 AM CDT) BUN 5(L) 7 - 26 mg/dL 09/21/2021 3:11 AM [facility] Creatinine 0.58(L) 0.71 - 1.16 mg/dL 09/21/2021 3:11 AM [facility] Sodium 141 136 - 145 mmol/L 09/21/2021 3:11 AM [facility] Potassium 3.4(L) 3.5 - 4.5 mmol/L 09/21/2021 3:11 AM [facility] Chloride 103 98 - 107 mmol/L 09/21/2021 3:11 AM [facility] CO2 27 22 - 29 mmol/L 09/21/2021 3:11 AM [facility] Glucose 107 70 - 115 mg/dL 09/21/2021 3:11 AM [facility] Calcium 9.3 8.4 - 10.2 mg/dL 09/21/2021 3:11 AM [facility] Anion Gap 14 8 - 18 09/21/2021 3:11 AM [facility] BUN/Creatinine Ratio 9 7 - 23 09/21/2021 3:11 AM [facility] Osmolality Calculated 290 270 - 300 mOsm/kg 09/21/2021 3:11 AM [facility] eGFR by CKD-EPI >90 >=90 mL/min/1.7 3 m2 09/21/2021 3:11 AM [facility] Blood BLOOD SPECIMEN / Unknown Venipuncture / Unknown 09/21/2021 2:35 AM CDT 09/21/2021 2:45 AM CDT Ananda Gilbert DO LAB - CHEMISTRY ORDE RABLES [address] [address], [place] [phone] * (ABNORMAL) GLUCOSE - POINT OF CARE (09/21/2021 1:04 AM CDT) Glucose WB/POC 124(H) 70 - 115 mg/dL 09/21/2021 1:09 AM [facility] Specimen Type Cap Fingerstick 2021 1:09 AM [facility] Blood BLOOD SPECIMEN / Unknown 09/21/2021 1:04 AM CDT 09/21/2021 1:08 AM CDT Ananda Gilbert DO LAB - POINT OF CARE ORDERABLES [address] [address], [place] [phone] * (ABNORMAL) GLUCOSE - POINT OF CARE (09/20/2021 8:03 PM CDT) Glucose WB/POC 141(H) 70 - 115 mg/dL 09/20/2021 8:42 PM CDT [facility] Specimen Type Cap Fingerstick 2021 8:42 PM CDT [facility] Blood BLOOD SPECIMEN / Unknown 09/20/2021 8:03 PM CDT 09/20/2021 8:42 PM CDT Ananda Orellana Vladimir DO LAB - POINT OF CARE ORDERABLES [address] [address], [place] [phone] * (ABNORMAL) GLUCOSE - POINT OF CARE (09/20/2021 4:47 PM CDT) Glucose WB/POC 121(H) 70 - 115 mg/dL 09/20/2021 4:52 PM CDT [facility] Specimen Type Cap Fingerstick 2021 4:52 PM CDT [facility] Blood BLOOD SPECIMEN / Unknown 09/20/2021 4:47 PM CDT 09/20/2021 4:52 PM CDT Ananda A Vladimir DO LAB - POINT OF CARE ORDERABLES [address] [address], [place] [phone] * (ABNORMAL) GLUCOSE - POINT OF CARE (09/20/2021 12:09 PM CDT) Glucose WB/POC 148(H) 70 - 115 mg/dL 09/20/2021 12:17 PM CDT [facility] Specimen Type Cap Fingerstick 2021 12:17 PM CDT [facility] Blood BLOOD SPECIMEN / Unknown 09/20/2021 12:09 PM CDT 09/20/2021 12:17 PM CDT Ananda Gilbert DO LAB - POINT OF CARE ORDERABLES [address] [address], [facility] [phone] * PHOSPHORUS BLOOD (09/20/2021 9:35 AM CDT) Phosphorus 3.7 2.8 - 5.1 mg/dL 09/20/2021 10:10 AM CDT [facility] Blood BLOOD SPECIMEN / Unknown Lab Venipuncture / Unknown 09/20/2021 9:35 AM CDT 09/20/2021 9:40 AM CDT Ananda Gilbert DO LAB - CHEMISTRY ORDE TERRELLMATHIEU Performing Organization Address City/[facility]/ZIP Co de Phone Number [address] [address], [facility] [phone] * MAGNESIUM BLOOD (09/20/2021 9:35 AM CDT) Magnesium 1.8 1.6 - 2.6 mg/dL 09/20/2021 10:10 AM CDT [facility] Blood BLOOD SPECIMEN / Unknown Lab Venipuncture / Unknown 09/20/2021 9:35 AM CDT 09/20/2021 9:40 AM CDT Ananda Reyna Vladimir [facility] - CHEMISTRY [place] [address] [address], [facility] [phone] * (ABNORMAL) CBC W/O DIFFERENTIAL (09/20/2021 9:35 AM CDT) WBC 9.9 3.5 - 10.5 10? 3 /uL 09/20/2021 9:44 AM CDT [facility] RBC 4.03(L) 4.30 - 5.70 10? 6 /uL 09/20/2021 9:44 AM CDT [facility] Hemoglobin 11.3(L) 12.0 - 17.6 g/dL 09/20/2021 9:44 AM [facility] Hematocrit 34.4(L) 35.2 - 51.7 % 09/20/2021 9:44 AM [facility] MCV 85.4 80.7 - 98.3 fL 09/20/2021 9:44 AM [facility] MCH 28.0 26.7 - 34.0 pg 09/20/2021 9:44 AM [facility] MCHC 32.8 30.8 - 35.9 g/dL 09/20/2021 9:44 AM [facility] Platelet Count 323 150 - 400 10? 3 /uL 09/20/2021 9:44 AM [facility] RDW-SD 37.4 36.0 - 50.0 fL 09/20/2021 9:44 AM [facility] RDW-CV 12.0 11.2 - 14.8 % 09/20/2021 9:44 AM [facility] MPV 9.7 9.4 - 12.9 fL 09/20/2021 9:44 AM [facility] nRBC Absolute 0.00 0 10? 3 /uL 09/20/2021 9:44 AM [facility] nRBC Auto 0.0 0 /100 WBC 09/20/2021 9:44 AM [facility] Blood BLOOD SPECIMEN / Unknown Lab Venipuncture / Unknown 09/20/2021 9:35 AM CDT 09/20/2021 9:40 AM T Ananda Gilbert DO LAB - HEMATOLOGY ORD ERABLES [facility] [address] [place] [address], [facility] [phone] * (ABNORMAL) BASIC METABOLIC PANEL (CALCIUM TOTAL) (09/20/2021 9:35 AM CDT) BUN 5(L) 7 - 26 mg/dL 09/20/2021 10:10 AM [facility] Creatinine 0.60(L) 0.71 - 1.16 mg/dL 09/20/2021 10:10 AM [facility] Sodium 141 136 - 145 mmol/L 09/20/2021 10:10 AM [facility] Potassium 3.6 3.5 - 4.5 mmol/L 09/20/2021 10:10 AM [facility] Chloride 103 98 - 107 mmol/L 09/20/2021 10:10 AM [facility] CO2 25 22 - 29 mmol/L 09/20/2021 10:10 AM [facility] Glucose 126(H) 70 - 115 mg/dL 09/20/2021 10:10 AM [facility] Calcium 9.3 8.4 - 10.2 mg/dL 09/20/2021 10:10 AM [facility] Anion Gap 17 8 - 18 09/20/2021 10:10 AM [facility] BUN/Creatinine Ratio 8 7 - 23 09/20/2021 10:10 AM [facility] Osmolality Calculated 291 270 - 300 mOsm/kg 09/20/2021 10:10 AM [facility] eGFR by CKD-EPI >90 >=90 mL/min/1.7 3 m2 09/20/2021 10:10 AM [facility] Blood BLOOD SPECIMEN / Unknown Lab Venipuncture / Unknown 09/20/2021 9:35 AM CDT 09/20/2021 9:40 AM CDT Ananda Gilbert DO LAB - CHEMISTRY [place] Organization Address [facility]/State/[facility] Co de Phone Number [facility] [address] [place] [address], [facility] [phone] * (ABNORMAL) GLUCOSE - POINT OF CARE (09/20/2021 8:48 AM CDT) Glucose WB/POC 124(H) 70 - 115 mg/dL 09/20/2021 8:57 AM [facility] Specimen Type Cap Fingerstick 2021 8:57 AM [facility] Blood BLOOD SPECIMEN / Unknown 09/20/2021 8:48 AM CDT 09/20/2021 8:56 AM CDT Ananda Gilbert DO LAB - POINT OF CARE ORDERABLES [address] [address], [place] [phone] * (ABNORMAL) GLUCOSE - POINT OF CARE (09/20/2021 4:44 AM CDT) Glucose WB/POC 127(H) 70 - 115 mg/dL 09/20/2021 4:54 AM CDT [facility] Specimen Type Cap Fingerstick 2021 4:54 AM CDT [facility] Blood BLOOD SPECIMEN / Unknown 09/20/2021 4:44 AM CDT 09/20/2021 4:53 AM CDT Ananda Gilbert DO LAB - POINT OF CARE ORDERABLES Performing Organization Address City/[facility]/ZIP Co de Phone Number [address] [address], [place] [phone] * (ABNORMAL) GLUCOSE - POINT OF CARE (09/20/2021 12:38 AM CDT) Glucose WB/POC 136(H) 70 - 115 mg/dL 09/20/2021 12:45 AM CDT [facility] Specimen Type Cap Fingerstick 2021 12:45 AM CDT [facility] Blood BLOOD SPECIMEN / Unknown 09/20/2021 12:38 AM CDT 09/20/2021 12:45 AM CDT Ananda Gilbert DO LAB - POINT OF CARE ORDERABLES [address] [address], [place] [phone] * (ABNORMAL) GLUCOSE - POINT OF CARE (09/19/2021 8:04 PM CDT) Glucose WB/POC 125(H) 70 - 115 mg/dL 09/19/2021 8:08 PM CDT [facility] Specimen Type Cap Fingerstick 2021 8:08 PM CDT [facility] Blood BLOOD SPECIMEN / Unknown 09/19/2021 8:04 PM CDT 09/19/2021 8:08 PM CDT Ananda Goodrichper DO LAB - POINT OF CARE ORDERABLES [address] [address], [place] [phone] * (ABNORMAL) GLUCOSE - POINT OF CARE (09/19/2021 4:24 PM CDT) Glucose WB/POC 139(H) 70 - 115 mg/dL 09/19/2021 4:25 PM CDT [facility] Specimen Type Arterial 09/19/2021 4:25 PM CDT [facility] Blood BLOOD SPECIMEN / Unknown 09/19/2021 4:24 PM CDT 09/19/2021 4:25 PM CDT Ananda Gilbert DO LAB - POINT OF CARE ORDERABLES Performing Organization Address City/[facility]/ZIP Co de Phone Number [address] [address], [place] [phone] * (ABNORMAL) GLUCOSE - POINT OF CARE (09/19/2021 11:33 AM CDT) Glucose WB/POC 127(H) 70 - 115 mg/dL 09/19/2021 11:34 AM CDT [facility] Specimen Type Arterial 09/19/2021 11:34 AM CDT [facility] Blood BLOOD SPECIMEN / Unknown 09/19/2021 11:33 AM CDT 09/19/2021 11:34 AM CDT Ananda Goodrichper DO LAB - POINT OF CARE ORDERABLES [address] [address], [place] [phone] * (ABNORMAL) GLUCOSE - POINT OF CARE (09/19/2021 8:08 AM CDT) Glucose WB/POC 121(H) 70 - 115 mg/dL 09/19/2021 8:18 AM CDT [facility] Specimen Type Arterial 09/19/2021 8:18 AM CDT [facility] Blood BLOOD SPECIMEN / Unknown 09/19/2021 8:08 AM CDT 09/19/2021 8:18 AM CDT Ananda Gilbert DO LAB - POINT OF CARE ORDERABLES [address] [address], [place] [phone] * GLUCOSE - POINT OF CARE (09/19/2021 4:50 AM CDT) Glucose WB/POC 104 70 - 115 mg/dL 09/19/2021 4:50 AM CDT [facility] Specimen Type Cap Fingerstick 2021 4:50 AM CDT [facility] Blood BLOOD SPECIMEN / Unknown 09/19/2021 4:50 AM CDT 09/19/2021 4:50 AM CDT Ananda Gilbert DO LAB - POINT OF CARE ORDERABLES [address] [address], [place] [phone] * (ABNORMAL) PHOSPHORUS BLOOD (09/19/2021 3:37 AM CDT) Phosphorus 2.6(L) 2.8 - 5.1 mg/dL 09/19/2021 4:19 AM CDT [facility] Blood BLOOD SPECIMEN / Unknown Lab Venipuncture / Unknown 09/19/2021 3:37 AM CDT 09/19/2021 3:45 AM CDT Ananda Gilbert DO LAB - CHEMISTRY ORDE TERRELLMATHIEU Performing Organization Address City/[facility]/ZIP Co de Phone Number [facility] [address] [place] [address], [facility] [phone] * MAGNESIUM BLOOD (09/19/2021 3:37 AM CDT) Pathologist [facility] Magnesium 1.7 1.6 - 2.6 mg/dL 09/19/2021 4:19 AM T [facility] Blood BLOOD SPECIMEN / Unknown Lab Venipuncture / Unknown 09/19/2021 3:37 AM CDT 09/19/2021 3:45 AM CDT Ananda Gilbert DO LAB - CHEMISTRY ZIPatricia ERIC Performing Organization Address [facility]/ZIP Co de Phone Number [facility] [address] [place] [address], [facility] [phone] * CBC W/O DIFFERENTIAL (09/19/2021 3:37 AM CDT) Pathologist [facility] WBC 7.8 3.5 - 10.5 10? 3 /uL 09/19/2021 4:05 AM [facility] RBC 4.33 4.30 - 5.70 10? 6 /uL 09/19/2021 4:05 AM [facility] Hemoglobin 12.0 12.0 - 17.6 g/dL 09/19/2021 4:05 AM [facility] Hematocrit 37.0 35.2 - 51.7 % 09/19/2021 4:05 AM [facility] MCV 85.5 80.7 - 98.3 fL 09/19/2021 4:05 AM [facility] MCH 27.7 26.7 - 34.0 pg 09/19/2021 4:05 AM [facility] MCHC 32.4 30.8 - 35.9 g/dL 09/19/2021 4:05 AM [facility] Platelet Count 287 150 - 400 10? 3 /uL 09/19/2021 4:05 AM [facility] RDW-SD 37.6 36.0 - 50.0 fL 09/19/2021 4:05 AM [facility] RDW-CV 12.1 11.2 - 14.8 % 09/19/2021 4:05 AM [facility] MPV 10.0 9.4 - 12.9 fL 09/19/2021 4:05 AM [facility] nRBC Absolute 0.00 0 10? 3 /uL 09/19/2021 4:05 AM [facility] nRBC Auto 0.0 0 /100 WBC 09/19/2021 4:05 AM [facility] Blood BLOOD SPECIMEN / Unknown Lab Venipuncture / Unknown 09/19/2021 3:37 AM CDT 09/19/2021 3:46 AM T Ananda Gilbert DO LAB - HEMATOLOGY ORD ERABLES [facility] [address] [place] [address], [facility] [phone] * BASIC METABOLIC PANEL (CALCIUM TOTAL) (09/19/2021 3:37 AM CDT) BUN 9 7 - 26 mg/dL 09/19/2021 4:19 AM [facility] Creatinine 0.73 0.71 - 1.16 mg/dL 09/19/2021 4:19 AM [facility] Sodium 140 136 - 145 mmol/L 09/19/2021 4:19 AM [facility] Potassium 3.5 3.5 - 4.5 mmol/L 09/19/2021 4:19 AM [facility] Chloride 105 98 - 107 mmol/L 09/19/2021 4:19 AM [facility] CO2 23 22 - 29 mmol/L 09/19/2021 4:19 AM [facility] Glucose 104 70 - 115 mg/dL 09/19/2021 4:19 AM [facility] Calcium 8.6 8.4 - 10.2 mg/dL 09/19/2021 4:19 AM [facility] Anion Gap 16 8 - 18 09/19/2021 4:19 AM CDT [facility] BUN/Creatinine Ratio 12 7 - 23 09/19/2021 4:19 AM CDT [facility] Osmolality Calculated 289 270 - 300 mOsm/kg 09/19/2021 4:19 AM CDT [facility] eGFR by CKD-EPI >90 >=90 mL/min/1.7 3 m2 09/19/2021 4:19 AM CDT [facility] Blood BLOOD SPECIMEN / Unknown Lab Venipuncture / Unknown 09/19/2021 3:37 AM CDT 09/19/2021 3:45 AM CDT Ananda Gilbert DO LAB - CHEMISTRY ORDE RAB[place] [address] [address], [place] [phone] * GLUCOSE - POINT OF CARE (09/19/2021 12:13 AM CDT) Glucose WB/POC 112 70 - 115 mg/dL 09/19/2021 12:20 AM CDT [facility] Specimen Type Cap Fingerstick 2021 12:20 AM CDT [facility] Blood BLOOD SPECIMEN / Unknown 09/19/2021 12:13 AM CDT 09/19/2021 12:20 AM CDT Ananda Gilbert DO LAB - POINT OF CARE ORDERABLES [facility] [address] [place] [address], [place] [phone] * GLUCOSE - POINT OF CARE (09/18/2021 8:01 PM CDT) Glucose WB/POC 98 70 - 115 mg/dL 09/18/2021 8:02 PM CDT [facility] Specimen Type Cap Fingerstick 2021 8:02 PM CDT [facility] Blood BLOOD SPECIMEN / Unknown 09/18/2021 8:01 PM CDT 09/18/2021 8:02 PM CDT Ananda Gilbert DO LAB - POINT OF CARE ORDERABLES Performing Organization Address City/[facility]/ZIP Co de Phone Number [facility] [address] [place] [address], [place] [phone] * GLUCOSE - POINT OF CARE (09/18/2021 5:11 PM CDT) Glucose WB/POC 107 70 - 115 mg/dL 09/18/2021 5:12 PM CDT [facility] Specimen Type Arterial 09/18/2021 5:12 PM CDT [facility] Blood BLOOD SPECIMEN / Unknown 09/18/2021 5:11 PM CDT 09/18/2021 5:12 PM CDT Ananda Gilbert DO LAB - POINT OF CARE ORDERABLES Performing Organization Address [facility]/ZIP Co de Phone Number [address] [address], [place] [phone] * (ABNORMAL) GLUCOSE - POINT OF CARE (09/18/2021 12:04 PM CDT) Glucose WB/POC 125(H) 70 - 115 mg/dL 09/18/2021 12:05 PM CDT [facility] Specimen Type Arterial 09/18/2021 12:05 PM CDT [facility] Blood BLOOD SPECIMEN / Unknown 09/18/2021 12:04 PM CDT 09/18/2021 12:05 PM CDT Ananda Gilbert DO LAB - POINT OF CARE ORDERABLES Performing Organization Address City/[facility]/ZIP Co de Phone Number [address] [address], [place] [phone] * (ABNORMAL) GLUCOSE - POINT OF CARE (09/18/2021 7:57 AM CDT) Glucose WB/POC 126(H) 70 - 115 mg/dL 09/18/2021 11:48 AM CDT [facility] Specimen Type Arterial 09/18/2021 11:48 AM CDT [facility] Blood BLOOD SPECIMEN / Unknown 09/18/2021 7:57 AM CDT 09/18/2021 11:47 AM CDT Ananda Orellana Vladimir [facility] - POINT OF CARE ORDERABLES Performing Organization Address City/[facility]/ZIP Co de Phone Number [address] [address], [place] [phone] * (ABNORMAL) GLUCOSE - POINT OF CARE (09/18/2021 4:34 AM CDT) Glucose WB/POC 136(H) 70 - 115 mg/dL 09/18/2021 7:24 PM CDT [facility] Specimen Type Cap Fingerstick 2021 7:24 PM CDT [facility] Blood BLOOD SPECIMEN / Unknown 09/18/2021 4:34 AM CDT 09/18/2021 7:23 PM CDT Ananda Orellana Vladimir [facility] - POINT OF CARE ORDERABLES Performing Organization Address [facility]/ZIP Co de Phone Number [address] [address], [place] [phone] * PHOSPHORUS BLOOD (09/18/2021 3:06 AM CDT) Phosphorus 3.4 2.8 - 5.1 mg/dL 09/18/2021 3:47 AM CDT [facility] Blood BLOOD SPECIMEN / Unknown Lab Venipuncture / Unknown 09/18/2021 3:06 AM CDT 09/18/2021 3:16 AM CDT Ananda Reyna Vladimir [facility] - CHEMISTRY ORDE RABLES [address] [address], [place] [phone] * MAGNESIUM BLOOD (09/18/2021 3:06 AM CDT) Magnesium 2.2 1.6 - 2.6 mg/dL 09/18/2021 3:47 AM [facility] Blood BLOOD SPECIMEN / Unknown Lab Venipuncture / Unknown 09/18/2021 3:06 AM CDT 09/18/2021 3:16 AM CDT Ananda Gilbert DO LAB - CHEMISTRY TRAY RE[place] [facility] [address] [place] [address], [facility] [phone] * (ABNORMAL) CBC W/O DIFFERENTIAL (09/18/2021 3:06 AM CDT) WBC 10.7(H) 3.5 - 10.5 10? 3 /uL 09/18/2021 3:24 AM [facility] RBC 4.46 4.30 - 5.70 10? 6 /uL 09/18/2021 3:24 AM [facility] Hemoglobin 12.6 12.0 - 17.6 g/dL 09/18/2021 3:24 AM [facility] Hematocrit 38.5 35.2 - 51.7 % 09/18/2021 3:24 AM [facility] MCV 86.3 80.7 - 98.3 fL 09/18/2021 3:24 AM [facility] MCH 28.3 26.7 - 34.0 pg 09/18/2021 3:24 AM [facility] MCHC 32.7 30.8 - 35.9 g/dL 09/18/2021 3:24 AM [facility] Platelet Count 380 150 - 400 10? 3 /uL 09/18/2021 3:24 AM [facility] RDW-SD 38.5 36.0 - 50.0 fL 09/18/2021 3:24 AM [facility] RDW-CV 12.2 11.2 - 14.8 % 09/18/2021 3:24 AM [facility] MPV 10.0 9.4 - 12.9 fL 09/18/2021 3:24 AM [facility] nRBC Absolute 0.00 0 10? 3 /uL 09/18/2021 3:24 AM [facility] nRBC Auto 0.0 0 /100 WBC 09/18/2021 3:24 AM [facility] Blood BLOOD SPECIMEN / Unknown Lab Venipuncture / Unknown 09/18/2021 3:06 AM CDT 09/18/2021 3:16 AM CDT Ananda Gilbert DO LAB - HEMATOLOGY ORD ERABLES [facility] [address] [place] [address], [facility] [phone] * (ABNORMAL) BASIC METABOLIC PANEL (CALCIUM TOTAL) (09/18/2021 3:06 AM T) BUN 11 7 - 26 mg/dL 09/18/2021 3:47 AM [facility] Creatinine 0.84 0.71 - 1.16 mg/dL 09/18/2021 3:47 AM [facility] Sodium 139 136 - 145 mmol/L 09/18/2021 3:47 AM [facility] Potassium 4.4 3.5 - 4.5 mmol/L 09/18/2021 3:47 AM [facility] Chloride 108(H) 98 - 107 mmol/L 09/18/2021 3:47 AM [facility] CO2 22 22 - 29 mmol/L 09/18/2021 3:47 AM [facility] Glucose 133(H) 70 - 115 mg/dL 09/18/2021 3:47 AM [facility] Calcium 9.1 8.4 - 10.2 mg/dL 09/18/2021 3:47 AM [facility] Anion Gap 13 8 - 18 09/18/2021 3:47 AM [facility] BUN/Creatinine Ratio 13 7 - 23 09/18/2021 3:47 AM [facility] Osmolality Calculated 289 270 - 300 mOsm/kg 09/18/2021 3:47 AM [facility] eGFR by CKD-EPI >90 >=90 mL/min/1.7 3 m2 09/18/2021 3:47 AM [facility] Blood BLOOD SPECIMEN / Unknown Lab Venipuncture / Unknown 09/18/2021 3:06 AM CDT 09/18/2021 3:16 AM CDT Ananda Orellana Vladimir [facility] - CHEMISTRY ORDE ERIC Performing Organization Address City/[facility]/ZIP Co de Phone Number [address] [address], [facility] [phone] * (ABNORMAL) GLUCOSE - POINT OF CARE (09/18/2021 12:39 AM CDT) Glucose WB/POC 135(H) 70 - 115 mg/dL 09/18/2021 11:47 AM CDT [facility] Specimen Type Cap Fingerstick 2021 11:47 AM CDT [facility] Blood BLOOD SPECIMEN / Unknown 09/18/2021 12:39 AM CDT 09/18/2021 11:47 AM CDT Ananda Orellana Vladimir [facility] - POINT OF CARE ORDERABLES Performing Organization Address [facility]/ZIP Co de Phone Number [address] [address], [facility] [phone] * XR ABDOMEN KUB PORTABLE (09/17/2021 9:12 PM CDT) Anatomical Region Laterality Modality Abdomen Radiographic Merissa ging 09/18/2021 10:3 1 AM CDT Narrative 09/18/2021 10:34 AM CDT Examination: XR ABDOMEN KUB PORTABLE Date: 09/17/2021 9:12 PM Indications: K56.609: Small bowel obstruction Comparison: 09/16/2021. Technique: Assessment of enteric tube placement Findings: Support Devices: Distal end of the enteric tube is in the region of fundus of stomach and side-port is in the region of gastroesophageal junction, advancement of the tube for 3 to 5 cm is advised. Bladder catheter is noted. Lungs: Not included in the images. Bowel gas pattern: Some contrast media noted in the transverse colon and descending colon. Transverse colon is appears stretched. There is some dilation of the small bowel loops noted (approximate diameter is 5.5 cm). This report was electronically signed by BAMBI YARBROUGH MD, FRCR ??on 09/18/2021 10:34 AM . Procedure Note Bambi Yarbrough MD - 09/18/2021 Examination: XR ABDOMEN KUB PORTABLE Date: 09/17/2021 9:12 PM Indications: K56.609: Small bowel obstruction Comparison: 09/16/2021. Technique: Assessment of enteric tube placement Findings: Support Devices: Distal end of the enteric tube is in the region offundus of stomach and side-port is in the region of gastroesophageal junction, advancement of the tube for 3 to 5 cm is advised. Bladder catheter is noted. Lungs: Not included in the images. Bowel gas pattern: Some contrast media noted in the transverse colon and descending colon. Transverse colon is appears stretched. There is some dilation of the small bowel loops noted (approximate diameter is 5.5cm). This report was electronically signed by BAMBI YARBROUGH MD, FRCR on 09/18/2021 10:34 AM . Ananda Gilbert DO DIAGNOSTIC IMAGING O RDERABLES * (ABNORMAL) GLUCOSE - POINT OF CARE (09/17/2021 8:01 PM CDT) Glucose WB/POC 163(H) 70 - 115 mg/dL 09/17/2021 8:42 PM CDT [facility] Specimen Type Cap Fingerstick 2021 8:42 PM CDT [facility] Blood BLOOD SPECIMEN / Unknown 09/17/2021 8:01 PM CDT 09/17/2021 8:42 PM CDT Ananda Gilbert DO LAB - POINT OF CARE ORDERABLES [facility] [address] [place] [address], [facility] [phone] * (ABNORMAL) CBC W AUTO DIFFERENTIAL (09/17/2021 7:33 PM CDT) WBC 15.3(H) 3.5 - 10.5 10? 3 /uL 09/17/2021 8:44 PM [facility] RBC 4.76 4.30 - 5.70 10? 6 /uL 09/17/2021 8:44 PM [facility] Hemoglobin 13.5 12.0 - 17.6 g/dL 09/17/2021 8:44 PM [facility] Hematocrit 40.5 35.2 - 51.7 % 09/17/2021 8:44 PM [facility] MCV 85.1 80.7 - 98.3 fL 09/17/2021 8:44 PM [facility] MCH 28.4 26.7 - 34.0 pg 09/17/2021 8:44 PM [facility] MCHC 33.3 30.8 - 35.9 g/dL 09/17/2021 8:44 PM [facility] Platelet Count 426(H) 150 - 400 10? 3 /uL 09/17/2021 8:44 PM [facility] RDW-SD 37.2 36.0 - 50.0 fL 09/17/2021 8:44 PM [facility] RDW-CV 12.1 11.2 - 14.8 % 09/17/2021 8:44 PM [facility] MPV 10.0 9.4 - 12.9 fL 09/17/2021 8:44 PM [facility] nRBC Absolute 0.00 0 10? 3 /uL 09/17/2021 8:44 PM [facility] nRBC Auto 0.0 0 /100 WBC 09/17/2021 8:44 PM [facility] Neutrophils % 89.3(H) 35.0 - 70.0 % 09/17/2021 8:44 PM [facility] Lymphocytes % 4.9(L) 20.0 - 43.0 % 09/17/2021 8:44 PM [facility] Monocytes % 4.8(L) 5.0 - 13.0 % 09/17/2021 8:44 PM CDT [facility] Eosinophils % 0.0 0.0 - 6.0 % 09/17/2021 8:44 PM CDT [facility] Basophil % 0.3 0.0 - 2.0 % 09/17/2021 8:44 PM [facility] Neutrophils Absolute 13.6(H) 1.6 - 7.0 10? 3 /uL 09/17/2021 8:44 PM [facility] Lymphocyte Absolute 0.7(L) 1.1 - 3.9 10? 3 /uL 09/17/2021 8:44 PM T [facility] Monocytes Absolute 0.73 0.26 - 1.07 10? 3 /uL 09/17/2021 8:44 PM [facility] Eosinophils Absolute 0.00 0.00 - 0.47 10? 3 /uL 09/17/2021 8:44 PM T [facility] Basophils Absolute 0.04 0.00 - 0.08 10? 3 /uL 09/17/2021 8:44 PM [facility] Immature Granulocytes % 0.7 0.0 - 1.0 % 09/17/2021 8:44 PM [facility] Immature Granulocytes Absolute 0.11 09/17/2021 8:44 PM [facility] Blood BLOOD SPECIMEN / Unknown Lab Venipuncture / Unknown 09/17/2021 7:33 PM CDT 09/17/2021 8:39 PM CDT Ananda Gilbert DO LAB - HEMATOLOGY ORD ERABLES Performing Organization Address [facility] Co de Phone Number [address] [address] [phone] * (ABNORMAL) GLUCOSE - POINT OF CARE (09/17/2021 6:14 PM CDT) Glucose WB/POC 147(H) 70 - 115 mg/dL 09/18/2021 12:28 AM T [facility] Specimen Type Arterial 09/18/2021 12:28 AM [facility] Blood BLOOD SPECIMEN / Unknown 09/17/2021 6:14 PM CDT 09/18/2021 12:28 AM CDT Ananda Orellana Vladimir DO LAB - POINT OF CARE ORDERABLES Performing Organization Address [facility] de Phone Number [address] [address], [facility] [phone] * (ABNORMAL) GLUCOSE - POINT OF CARE (09/17/2021 12:39 PM CDT) Glucose WB/POC 136(H) 70 - 115 mg/dL 09/17/2021 8:04 PM CDT [facility] Specimen Type Cap Fingerstick 2021 8:04 PM CDT [facility] Blood BLOOD SPECIMEN / Unknown 09/17/2021 12:39 PM CDT 09/17/2021 8:04 PM CDT Ananda Gilbert DO LAB - POINT OF CARE ORDERABLES Performing Organization Address [facility] de Phone Number [address] [address], [facility] [phone] * PATHOLOGY TISSUE (09/17/2021 11:23 AM CDT) Case Report Surgical Pathology Report ? Case: [id number] ? Authorizing Provider: ??Cindi Cesar, ??Collected: ? 09/17/2021 11:23 AM ? MD ? Ordering Location: ? [facility] ?Received: ?09/17/2021 01:42 PM ? Pathologist: ? Steffany Sarmiento MD ? Specimen: ?Colon Ileum, ileum ? 09/21/2021 3:28 PM [facility] Final Diagnosis Small intestine, ileum, resection (A): - Serosal adhesions, stricture, and focal ulceration - Surgical margins viable - See comment 09/21/2021 3:28 PM [facility] Microscopic Description and Comment Microscopic examination substantiates the final diagnosis. 09/21/2021 3:28 PM [facility] Clinical History The patient is a 26-year-old man with history of gastroschisis, now with 4 day history of obstipation, nausea and emesis who had CT findings consistent with SBO. Operative procedure/findings: exploration - midline incision through previous scar, there was noted to be a loop of small bowel adherent to the midline at the level of the umbilicus, stricture in mid ileum where the bowel was previously adhered to the umbilicus, transected. 09/21/2021 3:28 PM [facility] Gross Description The requisition and specimen label(s) are identified with the patient's name, Chuck Cannon. Received in formalin, specimen A , is a 10.5 cm in length by 3.5 cm in diameter portion of unoriented small bowel with a minimal amount of attached mesentery. The serosa is sutherland-pink and smooth apart from a 4.0 x 3.5 cm red-purple serosal disruption that corresponds to an area of stricture (1.5 cm in diameter). Opening shows a sutherland-pink mucosa with the normal folding pattern. Recoating Machine Operator sections are submitted as follows: [id number], en face, A3-strictured area/serosal disruption, A4-uninvolved 09/21/2021 3:28 PM CDT [facility] Disclaimer The performance characteristics of all immunohistochemical and indirect immunofluorescence stains (if any) cited in this report were determined by the Histopathology Laboratory of [facility]. Some of these tests were [...] and interpreted by the attending (teaching) pathologist. 09/21/2021 3:28 PM CDT [facility] Embedded Images 09/21/2021 3:28 PM CDT [facility] Biopsy, Excision ENTIRE ILEUM / Unknown 09/17/2021 11:23 AM CDT 09/17/2021 1:42 PM CDT Comment:Pre-op diagnosis: Small bowel obstruction [K56.609] Cindi Cesar MD LAB - PATHOLO GY/CYTOLOGY ORDERABLES Performing Organization Address [facility]/State/[facility] Phone Number [facility] [address] [phone] * FL SMALL BOWEL SERIES (09/17/2021 10:45 AM CDT) Anatomical Region Laterality Modality Abdomen Radiographic Merissa ging 09/17/2021 1:58 PM CDT Impressions 09/17/2021 2:18 PM CDT IMPRESSION: High-grade or complete small bowel obstruction. This report was electronically signed by CITLALLI WELLINGTON M.D. ??on 09/17/2021 2:18 PM . Narrative 09/17/2021 2:18 PM CDT Exam: FL SMALL BOWEL SERIES Date: 09/17/2021 10:45 AM History: K56.609: Small bowel obstruction by current CT. History of gastroschisis and small bowel obstruction with 2 small bowel resections prior to age. Contrast: 200 cc Isovue 300 FINDINGS: Initial images show that the duodenum extends to midline, but without jejunum in the left upper quadrant. Multiple segments of moderately dilated small bowel are demonstrated in the right abdomen, measuring up to 5.5 cm. Images taken in the Radiology department up to 4 hours show persistent small bowel dilatation and faint opacification of dilated loops in the left paraspinal region. Subsequent images taken to 17 hours were performed portably and are nondiagnostic, but show persistent contrast within small bowel in the right abdomen and nonopacification of colon (contrast is seen on the human resources office manager exam within the ascending colon, positioned near midline, from prior outside exam). Procedure Note Citlalli Wellington MD - 09/17/2021 Exam: FL SMALL BOWEL SERIES Date: 09/17/2021 10:45 AM History: K56.609: Small bowel obstruction by current CT. History of gastroschisis and small bowel obstruction with 2 small bowel resections prior to age. Contrast: 200 cc Isovue 300 FINDINGS: Initial images show that the duodenum extends to midline, but without jejunum in the left upper quadrant. Multiple segments of moderately dilated small bowel are demonstrated in the right abdomen, measuring upto 5.5 cm. Images taken in the Radiology department up to 4 hours show persistent small bowel dilatation and faint opacification of dilatedloops in the left paraspinal region. Subsequent images taken to 17 hours were performed portably and are nondiagnostic, but show persistent contrast within small bowel in the right abdomen and nonopacification of colon (contrast is seen on the human resources office manager exam within the ascending colon,positioned near midline, from prior outside exam). IMPRESSION: High-grade or complete small bowel obstruction. This report was electronically signed by CITLALLI WELLINGTON M.D. on 09/17/2021 2:18 PM . Ananda Gilbert DO FLUOROSCOPY ORDERABL ES * (ABNORMAL) GLUCOSE - POINT OF CARE (09/17/2021 8:07 AM CDT) Glucose WB/POC 141(H) 70 - 115 mg/dL 09/17/2021 8:41 AM CDT [facility] Specimen Type Arterial 09/17/2021 8:41 AM CDT [facility] Blood BLOOD SPECIMEN / Unknown 09/17/2021 8:07 AM CDT 09/17/2021 8:41 AM CDT Ananda Gilbert DO LAB - POINT OF CARE ORDERABLES Performing Organization Address City/[facility]/ZIP Co de Phone Number [address] [address], [place] [phone] * (ABNORMAL) GLUCOSE - POINT OF CARE (09/17/2021 4:35 AM CDT) Glucose WB/POC 130(H) 70 - 115 mg/dL 09/17/2021 4:35 AM CDT [facility] Specimen Type Cap Fingerstick 2021 4:35 AM CDT [facility] Blood BLOOD SPECIMEN / Unknown 09/17/2021 4:35 AM CDT 09/17/2021 4:35 AM CDT Ananda Gilbert DO LAB - POINT OF CARE ORDERABLES Performing Organization Address City/[facility]/ZIP Co de Phone Number [address] [address], [place] [phone] * PHOSPHORUS BLOOD (09/17/2021 2:28 AM CDT) Phosphorus 4.5 2.8 - 5.1 mg/dL 09/17/2021 3:24 AM CDT [facility] Blood BLOOD SPECIMEN / Unknown Lab Venipuncture / Unknown 09/17/2021 2:28 AM CDT 09/17/2021 2:42 AM CDT Ananda Gilbert DO LAB - CHEMISTRY [place] [address] [place] [address], [facility] [phone] * MAGNESIUM BLOOD (09/17/2021 2:28 AM CDT) Pathologist [facility] Magnesium 2.5 1.6 - 2.6 mg/dL 09/17/2021 3:24 AM [facility] Blood BLOOD SPECIMEN / Unknown Lab Venipuncture / Unknown 09/17/2021 2:28 AM CDT 09/17/2021 2:42 AM CDT Ananda Gilbert DO LAB - CHEMISTRY ZIE ERIC [address] [address], [facility] [phone] * (ABNORMAL) CBC W/O DIFFERENTIAL (09/17/2021 2:28 AM CDT) WBC 13.8(H) 3.5 - 10.5 10? 3 /uL 09/17/2021 2:54 AM [facility] RBC 5.14 4.30 - 5.70 10? 6 /uL 09/17/2021 2:54 AM [facility] Hemoglobin 14.5 12.0 - 17.6 g/dL 09/17/2021 2:54 AM [facility] Hematocrit 43.1 35.2 - 51.7 % 09/17/2021 2:54 AM [facility] MCV 83.9 80.7 - 98.3 fL 09/17/2021 2:54 AM [facility] MCH 28.2 26.7 - 34.0 pg 09/17/2021 2:54 AM [facility] MCHC 33.6 30.8 - 35.9 g/dL 09/17/2021 2:54 AM [facility] Platelet Count 413(H) 150 - 400 10? 3 /uL 09/17/2021 2:54 AM [facility] RDW-SD 37.2 36.0 - 50.0 fL 09/17/2021 2:54 AM [facility] RDW-CV 12.2 11.2 - 14.8 % 09/17/2021 2:54 AM [facility] MPV 9.7 9.4 - 12.9 fL 09/17/2021 2:54 AM [facility] nRBC Absolute 0.00 0 10? 3 /uL 09/17/2021 2:54 AM [facility] nRBC Auto 0.0 0 /100 WBC 09/17/2021 2:54 AM [facility] Blood BLOOD SPECIMEN / Unknown Lab Venipuncture / Unknown 09/17/2021 2:28 AM CDT 09/17/2021 2:42 AM CDT Ananda Gilbert DO LAB - HEMATOLOGY ORD ERABLES [facility] [address] [place] [address], [facility] [phone] * (ABNORMAL) BASIC METABOLIC PANEL (CALCIUM TOTAL) (09/17/2021 2:28 AM CDT) BUN 16 7 - 26 mg/dL 09/17/2021 3:24 AM [facility] Creatinine 0.91 0.71 - 1.16 mg/dL 09/17/2021 3:24 AM [facility] Sodium 138 136 - 145 mmol/L 09/17/2021 3:24 AM [facility] Potassium 3.9 3.5 - 4.5 mmol/L 09/17/2021 3:24 AM [facility] Chloride 103 98 - 107 mmol/L 09/17/2021 3:24 AM [facility] CO2 20(L) 22 - 29 mmol/L 09/17/2021 3:24 AM [facility] Glucose 128(H) 70 - 115 mg/dL 09/17/2021 3:24 AM [facility] Calcium 10.1 8.4 - 10.2 mg/dL 09/17/2021 3:24 AM [facility] Anion Gap 19(H) 8 - 18 09/17/2021 3:24 AM [facility] BUN/Creatinine Ratio 18 7 - 23 09/17/2021 3:24 AM CDT [facility] Osmolality Calculated 289 270 - 300 mOsm/kg 09/17/2021 3:24 AM CDT [facility] eGFR by CKD-EPI >90 >=90 mL/min/1.7 3 m2 09/17/2021 3:24 AM CDT [facility] Blood BLOOD SPECIMEN / Unknown Lab Venipuncture / Unknown 09/17/2021 2:28 AM CDT 09/17/2021 2:42 AM CDT Ananda Gilbert DO LAB - CHEMISTRY ORDE RABLES [address] [address], [place] [phone] * (ABNORMAL) GLUCOSE - POINT OF CARE (09/17/2021 12:35 AM CDT) Glucose WB/POC 128(H) 70 - 115 mg/dL 09/17/2021 12:39 AM CDT [facility] Specimen Type Cap Fingerstick 2021 12:39 AM CDT [facility] Blood BLOOD SPECIMEN / Unknown 09/17/2021 12:35 AM CDT 09/17/2021 12:39 AM CDT Ananda Gilbert DO LAB - POINT OF CARE ORDERABLES [address] [address], [place] [phone] * GLUCOSE - POINT OF CARE (09/16/2021 7:40 PM CDT) Glucose WB/POC 107 70 - 115 mg/dL 09/16/2021 7:41 PM CDT [facility] Specimen Type Cap Fingerstick 2021 7:41 PM CDT [facility] Blood BLOOD SPECIMEN / Unknown 09/16/2021 7:40 PM CDT 09/16/2021 7:41 PM CDT Ananda Gilbert DO LAB - POINT OF CARE ORDERABLES Performing Organization Address City/[facility]/ZIP Co de Phone Number [address] [address], [place] [phone] * GLUCOSE - POINT OF CARE (09/16/2021 5:59 PM CDT) Glucose WB/POC 100 70 - 115 mg/dL 09/16/2021 7:41 PM CDT [facility] Specimen Type Cap Fingerstick 2021 7:41 PM CDT [facility] Blood BLOOD SPECIMEN / Unknown 09/16/2021 5:59 PM CDT 09/16/2021 7:41 PM CDT Ananda Gilbert DO LAB - POINT OF CARE ORDERABLES Performing Organization Address [facility]/ZIP Co de Phone Number [address] [address], [place] [phone] * GLUCOSE - POINT OF CARE (09/16/2021 11:31 AM CDT) Glucose WB/POC 98 70 - 115 mg/dL 09/16/2021 11:36 AM CDT [facility] Specimen Type Cap Fingerstick 2021 11:36 AM CDT [facility] Blood BLOOD SPECIMEN / Unknown 09/16/2021 11:31 AM CDT 09/16/2021 11:36 AM CDT Ananda Gilbert DO LAB - POINT OF CARE ORDERABLES Performing Organization Address City/[facility]/ZIP Co de Phone Number [address] [address], [place] [phone] * GLUCOSE - POINT OF CARE (09/16/2021 8:57 AM CDT) Glucose WB/POC 84 70 - 115 mg/dL 09/16/2021 9:02 AM CDT [facility] Specimen Type Cap Fingerstick 2021 9:02 AM CDT [facility] Blood BLOOD SPECIMEN / Unknown 09/16/2021 8:57 AM CDT 09/16/2021 9:02 AM CDT Ananda Orellana Vladimir DO LAB - POINT OF CARE ORDERABLES [address] [address], [place] [phone] * GLUCOSE - POINT OF CARE (09/16/2021 5:26 AM CDT) Glucose WB/POC 79 70 - 115 mg/dL 09/16/2021 5:27 AM CDT [facility] Specimen Type Arterial 09/16/2021 5:27 AM CDT [facility] Blood BLOOD SPECIMEN / Unknown 09/16/2021 5:26 AM CDT 09/16/2021 5:27 AM CDT Ananda Orellana Vladimir [facility] - POINT OF CARE ORDERABLES [address] [address], [place] [phone] * PHOSPHORUS BLOOD (09/16/2021 2:38 AM CDT) Phosphorus 3.8 2.8 - 5.1 mg/dL 09/16/2021 3:25 AM CDT [facility] Blood BLOOD SPECIMEN / Unknown Lab Venipuncture / Unknown 09/16/2021 2:38 AM CDT 09/16/2021 2:52 AM CDT Ananda Orellana Vladimir [facility] - CHEMISTRY ORDE [place] [address] [address], [place] [phone] * MAGNESIUM BLOOD (09/16/2021 2:38 AM CDT) Magnesium 2.1 1.6 - 2.6 mg/dL 09/16/2021 3:25 AM [facility] Blood BLOOD SPECIMEN / Unknown Lab Venipuncture / Unknown 09/16/2021 2:38 AM CDT 09/16/2021 2:52 AM CDT Ananda Gilbert DO LAB - CHEMISTRY ORDE [facility] [address] [place] [address], [facility] [phone] * (ABNORMAL) CBC W/O DIFFERENTIAL (09/16/2021 2:38 AM CDT) WBC 10.6(H) 3.5 - 10.5 10? 3 /uL 09/16/2021 3:02 AM [facility] RBC 4.74 4.30 - 5.70 10? 6 /uL 09/16/2021 3:02 AM [facility] Hemoglobin 13.4 12.0 - 17.6 g/dL 09/16/2021 3:02 AM [facility] Hematocrit 40.3 35.2 - 51.7 % 09/16/2021 3:02 AM [facility] MCV 85.0 80.7 - 98.3 fL 09/16/2021 3:02 AM [facility] MCH 28.3 26.7 - 34.0 pg 09/16/2021 3:02 AM [facility] MCHC 33.3 30.8 - 35.9 g/dL 09/16/2021 3:02 AM [facility] Platelet Count 360 150 - 400 10? 3 /uL 09/16/2021 3:02 AM [facility] RDW-SD 36.3 36.0 - 50.0 fL 09/16/2021 3:02 AM [facility] RDW-CV 11.9 11.2 - 14.8 % 09/16/2021 3:02 AM [facility] MPV 9.7 9.4 - 12.9 fL 09/16/2021 3:02 AM [facility] nRBC Absolute 0.00 0 10? 3 /uL 09/16/2021 3:02 AM [facility] nRBC Auto 0.0 0 /100 WBC 09/16/2021 3:02 AM [facility] Blood BLOOD SPECIMEN / Unknown Lab Venipuncture / Unknown 09/16/2021 2:38 AM CDT 09/16/2021 2:52 AM CDT Ananda Gilbert DO LAB - HEMATOLOGY ORD ERABLES [facility] [address] [place] [address], [facility] [phone] * (ABNORMAL) BASIC METABOLIC PANEL (CALCIUM TOTAL) (09/16/2021 2:38 AM CDT) BUN 7 7 - 26 mg/dL 09/16/2021 3:25 AM [facility] Creatinine 0.77 0.71 - 1.16 mg/dL 09/16/2021 3:25 AM [facility] Sodium 141 136 - 145 mmol/L 09/16/2021 3:25 AM [facility] Potassium 3.8 3.5 - 4.5 mmol/L 09/16/2021 3:25 AM [facility] Chloride 102 98 - 107 mmol/L 09/16/2021 3:25 AM [facility] CO2 20(L) 22 - 29 mmol/L 09/16/2021 3:25 AM [facility] Glucose 77 70 - 115 mg/dL 09/16/2021 3:25 AM [facility] Calcium 9.8 8.4 - 10.2 mg/dL 09/16/2021 3:25 AM [facility] Anion Gap 23(H) 8 - 18 09/16/2021 3:25 AM [facility] BUN/Creatinine Ratio 9 7 - 23 09/16/2021 3:25 AM [facility] Osmolality Calculated 289 270 - 300 mOsm/kg 09/16/2021 3:25 AM [facility] eGFR by CKD-EPI >90 >=90 mL/min/1.7 3 m2 09/16/2021 3:25 AM [facility] Blood BLOOD SPECIMEN / Unknown Lab Venipuncture / Unknown 09/16/2021 2:38 AM CDT 09/16/2021 2:52 AM CDT Ananda Goodrichper DO LAB - CHEMISTRY [place] [facility] [address] [place] [address], [place] [phone] * (ABNORMAL) HEMOGLOBIN A1C (09/16/2021 2:38 AM CDT) Hemoglobin A1c 6.5(H) <=5.6 % 09/16/2021 11:55 AM CDT [facility] Estimated Average Glucose 140 mg/dL 09/16/2021 11:55 AM CDT [facility] Comment: HbA1c Interpretation: Normal : < 5.7% Pre-diabetes: 5.7-6.4% Diabetes: Equal to or greater than 6.5% Test results diagnostic of diabetes should be repeated for confirmation. Treatment target values recommended by ADA and other clinical organizations should be used to evaluate metabolic control in patients. Reference: [place] [employer], Standards of Care in Diabetes -2020 In patients 70 years and older consider HbA1c target range of 7.0-7.5% (Reference: Reid Orellana et al. JAMDA. 2012) The Sebia assay for the measurement of HbA1c is a National Glycohemoglobin Standardization Program (NGSP) certified method. Blood BLOOD SPECIMEN / Unknown Lab Venipuncture / Unknown 09/16/2021 2:38 AM CDT 09/16/2021 2:52 AM CDT Ananda Orellana Vladimir LAB - CHEMISTRY [place] [facility] [address] [place] [address], [place] [phone] * GLUCOSE - POINT OF CARE (09/15/2021 11:29 PM CDT) Glucose WB/POC 75 70 - 115 mg/dL 09/15/2021 11:30 PM CDT [facility] Specimen Type Arterial 09/15/2021 11:30 PM CDT [facility] Blood BLOOD SPECIMEN / Unknown 09/15/2021 11:29 PM CDT 09/15/2021 11:30 PM CDT Ananda Gilbert DO LAB - POINT OF CARE ORDERABLES Performing Organization Address City/State/[facility] Co de Phone Number [facility] [address] [place] [address], [facility] [phone] * CT ABDOMEN PELVIS W CONTRAST (09/15/2021 8:37 PM CDT) Anatomical Region Laterality Modality Abdomen, Pelvis Computed Tomogra phy 09/16/2021 8:05 AM CDT Impressions 09/16/2021 9:57 AM CDT Impression: 1.Findings concerning for partial small bowel obstruction--Specifically, small bowel loops are dilated up to 3.7 cm with a narrow caliber transition point at midline anteriorly. There is contrast in the colon. The cecum is located to the left of midline which could be due to malrotation and/or post surgical. Correlate with history of prior abdominal surgeries. Report drafted by Itz Goldberg (resident) I, Dr. JORDIN ROSEN have personally reviewed and interpreted this examination/study. This report was electronically signed by JORDIN ROSEN ??on 09/16/2021 9:57 AM . Narrative 09/16/2021 9:57 AM CDT Procedure Information DATE: 09/15/2021 8:40 PM EXAMINATION: Computed tomography (CT) of the abdomen and pelvis with contrast TECHNIQUE: CT of the abdomen and pelvis was performed following the uneventful administration of 100 mL of Isovue 370 intravenous contrast according to standard protocol. Clinical Information HISTORY: K56.609: Small bowel obstruction COMPARISON: None. Findings Lower Chest: Mild dependent lung atelectasis is noted. Hepatobiliary: Normal. Pancreas: Normal. Spleen: Normal. Kidneys: Normal with retroaortic left renal vein. Adrenals: Normal. Retroperitoneum: Normal. Peritoneum: Normal. Gastrointestinal: The stomach appears unremarkable. The cecum and ascending colon are located to the left of midline. The small bowel is dilated up to 3.7 cm with air/fluid levels. A narrow caliber transition point is seen near the midline anteriorly on series 3 image 110. Intracolonic contrast is present from a prior upper GI study. Pelvic Structures: Normal. Vasculature: Normal. Bones: The visible osseous structures are intact. Soft tissues: Normal. Procedure Note Jordin Rosen MD - 09/16/2021 Procedure Information DATE: 09/15/2021 8:40 PM EXAMINATION: Computed tomography (CT) of the abdomen and pelvis with contrast TECHNIQUE: CT of the abdomen and pelvis was performed following the uneventful administration of 100 mL of Isovue 370 intravenous contrast according to standard protocol. Clinical Information HISTORY: K56.609: Small bowel obstruction COMPARISON: None. Findings Lower Chest: Mild dependent lung atelectasis is noted. Hepatobiliary: Normal. Pancreas: Normal. Spleen: Normal. Kidneys: Normal with retroaortic left renal vein. Adrenals: Normal. Retroperitoneum: Normal. Peritoneum: Normal. Gastrointestinal: The stomach appears unremarkable. The cecum and ascending colon are located to the left of midline. The small bowel is dilated up to 3.7 cm with air/fluid levels. A narrow caliber transition point is seen near the midline anteriorly on series 3 image 110. Intracolonic contrast is present from a prior upper GI study. Pelvic Structures: Normal. Vasculature: Normal. Bones: The visible osseous structures are intact. Soft tissues: Normal. Impression: 1.Findings concerning for partial small bowel obstruction--Specifically, small bowel loops are dilated up to 3.7 cm with a narrow caliber transition point at midline anteriorly. There is contrast in the colon. The cecum is located to the left of midline which could be due to malrotation and/or post surgical. Correlate with history of prior abdominal surgeries. Report drafted by Itz Goldberg (resident) I, Dr. JORDIN ROSEN have personally reviewed and interpreted this examination/study. This report was electronically signed by JORDIN ROSEN on 09/16/2021 9:57 AM. Ananda Gilbert DO CT ORDERABLES * (ABNORMAL) COMPREHENSIVE METABOLIC PANEL (09/15/2021 6:48 PM CDT) BUN 7 7 - 26 mg/dL 09/15/2021 7:32 PM CDT [facility] Creatinine 0.64(L) 0.71 - 1.16 mg/dL 09/15/2021 7:32 PM [facility] Sodium 139 136 - 145 mmol/L 09/15/2021 7:32 PM [facility] Potassium 3.7 3.5 - 4.5 mmol/L 09/15/2021 7:32 PM [facility] Chloride 101 98 - 107 mmol/L 09/15/2021 7:32 PM [facility] CO2 24 22 - 29 mmol/L 09/15/2021 7:32 PM [facility] Glucose 79 70 - 115 mg/dL 09/15/2021 7:32 PM [facility] Calcium 9.7 8.4 - 10.2 mg/dL 09/15/2021 7:32 PM [facility] Protein Total 7.7 6.0 - 8.3 g/dL 09/15/2021 7:32 PM [facility] Albumin 3.7 3.4 - 5.0 g/dL 09/15/2021 7:32 PM [facility] Bilirubin Total 1.2 0.2 - 1.2 mg/dL 09/15/2021 7:32 PM [facility] Alkaline Phosphatase 80 40 - 150 U/L 09/15/2021 7:32 PM [facility] ALT 47 5 - 55 U/L 09/15/2021 7:32 PM [facility] AST 22 5 - 34 U/L 09/15/2021 7:32 PM [facility] Anion Gap 18 8 - 18 09/15/2021 7:32 PM [facility] BUN/Creatinine Ratio 11 7 - 23 09/15/2021 7:32 PM [facility] Osmolality Calculated 285 270 - 300 mOsm/kg 09/15/2021 7:32 PM [facility] Albumin/Globulin Ratio 0.9(L) 1.1 - 2.3 09/15/2021 7:32 PM [facility] eGFR by CKD-EPI >90 >=90 mL/min/1.7 3 m2 09/15/2021 7:32 PM [facility] Blood BLOOD SPECIMEN / Unknown Lab Venipuncture / Unknown 09/15/2021 6:48 PM CDT 09/15/2021 7:07 PM CDT Ananda Gilbert DO LAB - CHEMISTRY ZIE ER[facility] [address] [place] [address], [facility] [phone] * (ABNORMAL) CBC W/O DIFFERENTIAL (09/15/2021 6:48 PM CDT) WBC 11.1(H) 3.5 - 10.5 10? 3 /uL 09/15/2021 7:15 PM CDT [facility] RBC 4.83 4.30 - 5.70 10? 6 /uL 09/15/2021 7:15 PM [facility] Hemoglobin 13.8 12.0 - 17.6 g/dL 09/15/2021 7:15 PM [facility] Hematocrit 41.0 35.2 - 51.7 % 09/15/2021 7:15 PM [facility] MCV 84.9 80.7 - 98.3 fL 09/15/2021 7:15 PM [facility] MCH 28.6 26.7 - 34.0 pg 09/15/2021 7:15 PM [facility] MCHC 33.7 30.8 - 35.9 g/dL 09/15/2021 7:15 PM [facility] Platelet Count 323 150 - 400 10? 3 /uL 09/15/2021 7:15 PM [facility] RDW-SD 35.8(L) 36.0 - 50.0 fL 09/15/2021 7:15 PM [facility] RDW-CV 11.9 11.2 - 14.8 % 09/15/2021 7:15 PM [facility] MPV 9.8 9.4 - 12.9 fL 09/15/2021 7:15 PM [facility] nRBC Absolute 0.00 0 10? 3 /uL 09/15/2021 7:15 PM [facility] nRBC Auto 0.0 0 /100 WBC 09/15/2021 7:15 PM CDT [facility] Blood BLOOD SPECIMEN / Unknown Lab Venipuncture / Unknown 09/15/2021 6:48 PM CDT 09/15/2021 7:07 PM CDT Ananda Gilbert LAB - HEMATOLOGY ORD ERABLES [facility] [address] [place] [address], [facility] [phone] documented in this encounter Visit Diagnoses Diagnosis Small bowel obstruction (HCC)- Primary Unspecified intestinal obstruction Small bowel obstruction (HCC) Unspecified intestinal obstruction History of gastroschisis Controlled type 2 diabetes mellitus without complication, without long-term current use of insulin (HCC) Arthrogryposis Other specific muscle disorders KARRIE (obstructive sleep apnea) Obstructive sleep apnea (adult) (pediatric) Small bowel obstruction (HCC) Unspecified intestinal obstruction documented in this encounter Administered Medications Inactive Administered Medications - up to 3 most recent administrations Medication Order MAR Action Action Date Dose Rate Site *Hold/Avoid Anticoagulants and Antiplatelet agents EVERY 12 HOURS ( and ), First dose on Avani 09/17/21 at 1015, Until Discontinued, SPINAL/EPIDURAL ANTIPLATELET/ANTICOAGULANT PRECAUTIONS: Hold/avoid antiplatelet agents. The only acceptable anticoagulation within 4 hours of epidural placement or removal is heparin 5000 units subcutaneous, If an epidural catheter is in place and has been in place for 8 or more hours, prophylactic doses of anticoagulants (enoxaparin 30 mg or 40 mg once daily or subcutaneous heparin 7500 units twice daily) may be given. Following removal of epidural catheter, excluding heparin 5000 units subcutaneous, avoid all other anticoagulants in the first 4 hours after removal of the epidural catheter. *Hold/Avoid Medication EVERY 12 HOURS (08 and 20), First dose on Avani 09/17/21 at 1015, Until Discontinued, SPINAL/EPIDURAL NEURAXIAL NARCOTIC ANALGESIA PRECAUTIONS: Hold/avoid sedatives (including benzodiazepines) and narcotics except as ordered by anesthesia. 0.9% NaCl injection 1-10 mL 1-10 mL, Intracatheter, PRN, Other, peripheral line flush, Starting on Tue09/15/21 at 1747, Until Tu09/22/21 at 1049, Flush peripheral IV catheter with 1-10 mL of normal saline before and after medications and prn to clear blood from the line or to verify patency. 0.9% NaCl injection 3 mL 3 mL, Intracatheter, EVERY 8 HOURS, First dose on Tue09/15/21 at 2200, Until Discontinued, Flush peripheral IV catheter with 3 mL of normal saline every 8 hours. $ Given 09/21/2021 9:46 PM CDT 3 mL $ Given 09/20/2021 9:06 PM CDT 3 mL $ Given 09/19/2021 8:37 PM CDT 3 mL acetaminophen (Tylenol) tablet 650 mg 650 mg, Oral, EVERY 6 HOURS, First dose on Tue09/20/21 at 0745, Until Discontinued, Patient preference for lesser PRN pain meds may be honored when the patient requests a less strong medication, a lower dose, or a less intrusive route of administration when the lesser drug, dose and route have been ordered for the patient. This patient request must be documented in the MAR. $ Given 09/22/2021 5:51 AM CDT 650 m g $ Given 09/22/2021 12:26 AM CDT 650 mg $ Given 09/21/2021 12:46 PM CDT 650 mg bisacodyl (Dulcolax) suppository 10 mg 10 mg, Rectal, EVERY 8 HOURS PRN, Constipation, if miralax ineffective, Starting on Tue09/21/21 at 0633, Until Tue09/22/21 at 1049 cyclobenzaprine (Flexeril) tablet 10 mg 10 mg, Oral, 3 TIMES DAILY, First dose (after last modification) on Tue09/21/21 at 1400, Until Discontinued $ Given 09/22/2021 8:01 AM CDT 10 mg $ Given 09/21/2021 9:39 PM CDT 10 mg $ Given 09/21/2021 1:14 PM CDT 10 mg dextrose 10 % IV bolus 12.5 g, at 468.75 mL/hr, Intravenous, PRN, Other, Bedside Glucose less than 70 mg/dL -If NOT able to eat and/or NPO and with IV Access, Starting on Tue09/15/21 at 2157, Until Tue09/22/21 at 1049, If NOT able to eat and/or NPO [...] NPO and with IV Access, Starting on Tue09/15/21 at 2157, Until Tue09/22/21 at 1049, If NOT able to eat and/or NPO [...] 80 mg/dl. NOTIFY PROVIDER OF HYPOGLYCEMIC EVENT. enoxaparin (Lovenox) injection 40 mg 40 mg, Subcutaneous, DAILY, First dose on Tue09/15/21 at 1830, Until Discontinued, (for prefilled syringes) do not expel air bubble from the syringe prior to the injection Remind Patient to not rub injection site. Could cause hematoma. $ Given 09/22/2021 8:01 AM CDT 40 mg Abdominal Tissue $ Given 09/21/2021 8:04 AM CDT 40 mg Ab dominal Tissue $ Given 09/20/2021 7:52 AM CDT 40 mg Ab dominal Tissue famotidine (Pepcid) injection 20 mg 20 mg, Intravenous, 2 TIMES DAILY, First dose on Tue09/15/21 at 2100, Until Discontinued, Dilute with 0.9% NaCl, D5W solution, or SWI to a volume of 5 to 10 mL and administer over at least 2 minutes. $ Given 09/22/2021 8:01 AM CDT 20 m g $ Given 09/21/2021 9:39 PM CDT 20 mg $ Given 09/21/2021 8:04 AM CDT 20 mg glucagon (Glucagen) injection 1 mg 1 mg, Intramuscular, PRN, Bedside Glucose less than 70 mg/dL - If NOT able to eat and/or NPO and withOUT IV Access, Starting on Tue09/15/21 at 2156, Until Tue09/22/21 at 1048, If NOT able to eat and/or NPO and NO IV Access: For Bedside glucose 54-69 mg/dL Give 1 mg IM or SQ For Bedside Glucose LESS than 54 mg/dl verify with a second bedside glucose (from a different site) and Give 1 mg IM or SQ Re-check and Re-treat blood glucose EVERY [...] does not have swallowing difficulties, Starting on Tue09/15/21 at 2156, Until Tue09/22/21 at 1048, If able to eat and can swallow [...] pt is symptomatic, do not delay treatment Consider confirming the glucose with a STAT laboratory test Give [...] 80 mg/dl. NOTIFY PROVIDER OF HYPOGLYCEMIC EVENT. glucose (Diabetic Use) oral gel Oral, PRN, Other, Bedside Glucose less than 70 mg/dL -If able to eat and does not have swallowing difficulties, Starting on Tue09/15/21 at 2156, Until Tue09/22/21 at 1049, If able to eat and is better [...] pt is symptomatic, do not delay treatment Consider confirming the glucose with a STAT laboratory test Give [...] 80 mg/dl. NOTIFY PROVIDER OF HYPOGLYCEMIC EVENT. glucose chew tablet 4 tablet 4 tablet (16 g), Oral, PRN, Other, Bedside Glucose less than 70 mg/dL -If able to eat and does not have swallowing difficulties, Starting on Tue09/15/21 at 2157, Until Tue09/22/21 at 1049, If able to eat and does not [...] pt is symptomatic, do not delay treatment Consider confirming the glucose with a STAT laboratory test Give 32 grams of oral carbohydrates - 8 glucose tabs (see MAR) If patient refuses glucose gel, then offer: - 8 ounces of fruit juice OR - 8 ounces non-diet soda OR - 16 ounces of fat-free milk Re-check and Re-treat blood glucose EVERY 10-25 minutes until blood glucose GREATER than or equal to 80 mg/dl. NOTIFY PROVIDER OF HYPOGLYCEMIC EVENT. hydrALAZINE (Apresoline) injection 10 mg 10 mg, Intravenous, EVERY 4 HOURS PRN, SBP greater than 160 mmHg, Hold for HR >90, Starting on Tue09/15/21 at 1750, Until Tue09/22/21 at 1049 HYDROmorphone (Dilaudid) injection 0.1 mg 0.1 mg, Intravenous, EVERY 2 HOURS PRN, Moderate Pain, Starting on Tue09/15/21 at 2057, Until Tue09/22/21 at 1049, If oral route not effective Patient preference for lesser PRN pain meds may be honored when the patient requests a less strong medication, a lower dose, or a less intrusive route of administration when the lesser drug, dose and route have been ordered for the patient. This patient request must be documented in the MAR. HYDROmorphone (Dilaudid) injection 0.2 mg 0.2 mg, Intravenous, EVERY 2 HOURS PRN, Severe Pain, Starting on Tue09/15/21 at 2057, Until Tue09/22/21 at 104, Give IV if PO is refused, ineffective, or not tolerated Patient preference for lesser PRN pain meds may be honored when the patient requests a less strong medication, a lower dose, or a less intrusive route of administration when the lesser drug, dose and route have been ordered for the patient. This patient request must be documented in the MAR. $ Given 09/17/2021 8:08 AM CDT 0.2 mg $ Given 09/17/2021 3:08 AM CDT 0.2 mg $ Given 09/17/2021 12:46 AM CDT 0.2 mg insulin lispro (HumaLOG;ADMelog) 100 UNIT/ML pen 0-6 Units 0-6 Units, Subcutaneous, EVERY 4 HOURS, First dose on Tue09/16/21 at 0000, Until Discontinued, DO NOT HOLD [...] = give 6 units and notify physician $ Given 09/17/2021 8:14 PM CDT 1 Units Abdominal Tissue labetalol (Normodyne; Trandate) injection 10 mg 10 mg, Intravenous, EVERY 4 HOURS PRN, SBP greater than 160 mmHg, Hold for HR <60, Starting on Tue09/15/21 at 1751, Until Tue09/22/21 at 1049, Max IV dose is 300mg/24 hours. lidocaine (Lidoderm) 5 % patch 1 patch 1 patch, Administer over 12 Hours, EVERY 24 HOURS, First dose on Tue09/17/21 at 2030, Until Discontinued, Apply near pain area and remove patch after a max of 12 hours of application within a 24 hour period. $ Applied 09/21/2021 9:49 PM CDT 1 patch Abdominal Tissue $ Applied 09/20/2021 8:51 PM CDT 1 patch Ab dominal Tissue $ Applied 09/19/2021 8:37 PM CDT 1 patch Ab dominal Tissue lidocaine viscous (Xylocaine) 2 % solution 5 mL 5 mL, Mouth/Throat, 3 TIMES DAILY PRN, Sore Throat, Starting on Tue09/16/21 at 0952, Until Tue09/22/21 at 1049, Maximum 8 doses per day. $ Given 09/16/2021 11:19 AM CDT 5 mL montelukast (Singulair) tablet 10 mg 10 mg, Oral, AT BEDTIME, First dose on Tue09/15/21 at 2230, Until Discontinued $ Given 09/21/2021 9:39 PM CDT 10 mg $ Given 09/20/2021 8:51 PM CDT 10 mg $ Given 09/19/2021 8:37 PM CDT 10 mg naloxone (Narcan) injection 0.2 mg 0.2 mg, Intravenous, PRN, Other, respiratory rate less than 8 OR difficult to arouse, Starting on Tue09/17/21 at 1010, Until Tue09/22/21 at 1049, For respiratory rate LESS than 8 per minute OR difficult to arouse ondansetron (Zofran) injection 4 mg 4 mg, Intravenous, EVERY 6 HOURS PRN, Nausea/Vomiting, Starting on Tue09/16/21 at 1051, Until Tue09/22/21 at 1049, Administer over 2 to 5 minutes. $ Given 09/16/2021 8:01 PM CDT 4 mg $ Given 09/16/2021 3:25 PM CDT 4 mg oxyCODONE (immediate release) (Roxicodone) tablet 10 mg 10 mg, Oral, EVERY 6 HOURS PRN, Severe Pain, Starting on Tue09/21/21 at 0905, Until Tue09/22/21 at 1049, Patient preference for lesser PRN pain meds may be honored when the patient requests a less strong medication, a lower dose, or a less intrusive route of administration when the lesser drug, dose and route have been ordered for the patient. This patient request must be documented in the MAR. $ Given 09/21/2021 12:46 PM CDT 10 m g oxyCODONE (immediate release) (Roxicodone) tablet 5 mg 5 mg, Oral, EVERY 6 HOURS PRN, Moderate Pain, Starting on Tue09/21/21 at 0905, Until Tue09/22/21 at 1049, Patient preference for lesser PRN pain meds may be honored when the patient requests a less strong medication, a lower dose, or a less intrusive route of administration when the lesser drug, dose and route have been ordered for the patient. This patient request must be documented in the MAR. polyethylene glycol 3350 (Miralax) packet 17 g 17 g, Oral, DAILY PRN, Constipation, Starting on Tue09/21/21 at 0630, Until Tue09/22/21 at 1049, Mix in 8 ounces of water, juice, soda, coffee or tea prior to administration potassium chloride ER (Klor-Con M) tablet 40 mEq 40 mEq, Oral, DAILY WITH BREAKFAST, First dose on Tue09/21/21 at 0800, Until Discontinued, Do not crush or chew. $ Given 09/22/2021 8:00 AM CDT 40 mEq $ Given 09/21/2021 8:05 AM CDT 40 mEq pravastatin (Pravachol) tablet 40 mg 40 mg, Oral, AT BEDTIME, First dose on Tue09/15/21 at 2315, Until Discontinued $ Given 09/21/2021 9:39 PM CDT 40 mg $ Given 09/20/2021 8:51 PM CDT 40 mg $ Given 09/19/2021 8:37 PM CDT 40 mg prochlorperazine (Compazine) injection 10 mg 10 mg, Intravenous, EVERY 6 HOURS PRN, Nausea/Vomiting, Starting on Avani 22 at 0055, Until Tue09/22/21 at 1049, Max intravenous rate = 5 mg/min $ Given 09/17/2021 8:08 AM CDT 10 mg $ Given 09/17/2021 1:12 AM CDT 10 mg senna-docusate (Senokot-S) tablet 1 tablet 1 tablet, Oral, DAILY, First dose on Tue09/21/21 at 0900, Until Discontinued $ Given 09/22/2021 8:01 AM CDT 1 tablet $ Given 09/21/2021 8:05 AM CDT 1 tablet throat lozenge 1 lozenge 1 lozenge, Oral, EVERY 2 HOURS PRN, Sore Throat, Starting on Tue09/16/21 at 0603, Until Tue09/22/21 at 1049 traMADol (Ultram) tablet 100 mg 100 mg, Oral, EVERY 8 HOURS, First dose on Tue09/21/21 at 0945, Until Discontinued, Patient preference for lesser PRN pain meds may be honored when the patient requests a less strong medication, a lower dose, or a less intrusive route of administration when the lesser drug, dose and route have been ordered for the patient. This patient request must be documented in the MAR. $ Given 09/22/2021 5:51 AM CDT 100 m g $ Given 09/21/2021 9:39 PM CDT 100 mg $ Given 09/21/2021 12:47 PM CDT 100 mg documented in this encounter Active and Recently Administered Medications Times are shown in CDT. Scheduled Medication Order 09/20/2021 09/21/2021 09/22/2021 *Hold/Avoid Anticoagulants and Antiplatelet agents EVERY 12 HOURS (08 and ), First dose on Tue09/17/21 at 1015, Until Discontinued, SPINAL/EPIDURAL ANTIPLATELET/ANTICOAGU LANT PRECAUTIONS: Hold/avoid antiplatelet agents. The only acceptable anticoagulation within 4 hours of epidural placement or removal is heparin 5000 units subcutaneous, If an epidural catheter is in place and has been in place for 8 or more hours, prophylactic doses of anticoagulants (enoxaparin 30 mg or 40 mg once daily or subcutaneous heparin 7500 units twice daily) may be given. Following removal of epidural catheter, excluding heparin 5000 units subcutaneous, avoid all other anticoagulants in the first 4 hours after removal of the epidural catheter. 0725 (*Reviewed - Provider: Maeve Guardado RN)2050 (*Reviewed - Provider: Parisa Soares RN) 08 (*Reviewed - Provider: Angelina Garcia RN)2136 (*Reviewed - Provider: Parisa Soares RN) 0801 (*Reviewed - Provider: Angelina Garcia RN) *Hold/Avoid Medication EVERY 12 HOURS (08 and 20), First dose on Avani 09/17/21 at 1015, Until Discontinued, SPINAL/EPIDURAL NEURAXIAL NARCOTIC ANALGESIA PRECAUTIONS: Hold/avoid sedatives (including benzodiazepines) and narcotics except as ordered by anesthesia. 0725 (*Reviewed - Provider: Maeve Guardado RN)2050 (*Reviewed - Provider: Parisa Soares RN) 075 (*Reviewed - Provider: Angelina Garcia RN)2137 (*Reviewed - Provider: Parisa Soares RN) 0801 (*Reviewed - Provider: Angelina Garcia RN) 0.9% NaCl injection 3 mL(Linked Group 1) 3 mL, Intracatheter, EVERY 8 HOURS, First dose on Tue09/15/21 at 2200, Until Discontinued, Flush peripheral IV catheter with 3 mL of normal saline every 8 hours. 0457 (Not Administered - Provider: Zackery García RN - Reason: See Comments)1450 (Not Administered - Provider: Maeve Guardado RN - Reason: IV Currently Infusing)2106 ($ Given - Provider: Parisa Soares RN) 0635 (Canceled Entry - Provider: Parisa Soares RN)1249 (Not Administered - Provider: Angelina Garcia RN - Reason: See Comments - Comment: infused earlier with meds)2146 ($ Given - Provider: Parisa Soares RN) 0747 (Canceled Entry - Provider: Parisa Soares RN) acetaminophen (Tylenol) tablet 650 mg 650 mg, Oral, EVERY 6 HOURS, First dose on Tue09/20/21 at 0745, Until Discontinued, Patient preference for lesser PRN pain meds may be honored when the patient requests a less strong medication, a lower dose, or a less intrusive route of administration when the lesser drug, dose and route have been ordered for the patient. This patient request must be documented in the MAR. 0752 ($ Given - Provider: Maeve Guardado RN)1140 ($ Given - Provider: Maeve Guardado RN)1703 ($ Given - Provider: Maeve Guardado RN) 0114 ($ Given - Provider: Parisa Soares RN)0634 (Not Administered - Provider: Parisa Soares RN - Reason: Refused-Patient)1246 ($ Given - Provider: Angelina Garcia RN)1757 (Not Administered - Provider: Angelina Garcia RN - Reason: Patient sleeping) 0026 ($ Given - Provider: Parisa Soares RN)0551 ($ Given - Provider: Parisa Soares RN) cyclobenzaprine (Flexeril) tablet 10 mg 10 mg, Oral, 3 TIMES DAILY, First dose (after last modification) on Tue09/21/21 at 1400, Until Discontinued 1314 ($ Given - Provider: Angelina Garcia RN)2139 ($ Given - Provider: Parisa Soares RN) 0801 ($ Given - Provider: Angelina Garcia RN) enoxaparin (Lovenox) injection 40 mg 40 mg, Subcutaneous, DAILY, First dose on Tue09/15/21 at 1830, Until Discontinued, (for prefilled syringes) do not expel air bubble from the syringe prior to the injection Remind Patient to not rub injection site. Could cause hematoma. 0752 ($ Given - Provider: Maeve Guardado RN) 0804 ($ Given - Provider: Angelina Garcia RN) 0801 ($ Given - Provider: Angelina Garcia RN) famotidine (Pepcid) injection 20 mg 20 mg, Intravenous, 2 TIMES DAILY, First dose on Tue09/15/21 at 2100, Until Discontinued, Dilute with 0.9% NaCl, D5W solution, or SWI to a volume of 5 to 10 mL and administer over at least 2 minutes. 0752 ($ Given - Provider: Maeve Guardado RN)2051 ($ Given - Provider: Parisa Soares RN) 0804 ($ Given - Provider: Angelina Garcia RN)2139 ($ Given - Provider: Parisa Soares RN) 0801 ($ Given - Provider: Angelina Garcia RN) insulin lispro (HumaLOG;ADMelog) 100 UNIT/ML pen 0-6 Units 0-6 Units, Subcutaneous, EVERY 4 HOURS, First dose on Tue09/16/21 at 0000, Until Discontinued, DO NOT HOLD [...] = give 6 units and notify physician 0041 (Not Administered - Provider: Zackery García RN - Reason: See Comments)0457 (Not Administered - Provider: Zackery García RN - Reason: See Comments)0754 (Not Administered - Provider: Maeve Guardado RN - Reason: Per Administration Instructions)1252 (Not Administered - Provider: Maeve Guardado RN - Reason: Per Administration Instructions)1656 (Not Administered - Provider: Maeve Guardado RN - Reason: Per Administration Instructions)2050 (Not Administered - Provider: Parisa Soares RN - Reason: Per Administration Instructions - Comment: blood glucose 141) 0108 (Not Administered - Provider: Parisa Soares RN - Reason: Per Administration Instructions - Comment: blood [id number])0429 (Not Administered - Provider: Parisa Soares RN - Reason: Per Administration Instructions - Comment: blood sugar 99)0812 (Not Administered - Provider: Angelina Garcia RN - Reason: Per Administration Instructions)1248 (Not Administered - Provider: Angelina Garcia RN - Reason: Per Administration Instructions)1737 (Not Administered - Provider: Angelina Garcia RN - Reason: Per Administration Instructions)2138 (Not Administered - Provider: Parisa Soares RN - Reason: Per Administration Instructions - Comment: blood sugar 133) 0044 (Not Administered - Provider: Parisa Soares RN - Reason: Per Administration Instructions - Comment: blood sugar 99)0426 (Not Administered - Provider: Parisa Soares RN - Reason: Per Administration Instructions - Comment: blood sugar 114)0802 (Not Administered - Provider: Angelina Garcia RN - Reason: Per Administration Instructions) lidocaine (Lidoderm) 5 % patch 1 patch 1 patch, Administer over 12 Hours, EVERY 24 HOURS, First dose on Tue09/17/21 at 2030, Until Discontinued, Apply near pain area and remove patch after a max of 12 hours of application within a 24 hour period. 075 (Removed - Provider: Maeve Guardado RN)2050 ($ Applied - Provider: Parisa Soares RN) 804 (Removed - Provider: Angelina Garcia RN)2148 ($ Applied - Provider: Parisa Soares RN) 08 (Removed - Provider: Angelina Garcia RN) montelukast (Singulair) tablet 10 mg 10 mg, Oral, AT BEDTIME, First dose on Tue09/15/21 at 2230, Until Discontinued 2050 ($ Given - Provider: Parisa Soares RN) 2138 ($ Given - Provider: Parisa Soares RN) oxyCODONE (immediate release) (Roxicodone) tablet 10 mg (CANCELED) 10 mg, Oral, EVERY 4 HOURS, First dose on Tue09/20/21 at 2100, Until Discontinued, Patient preference for lesser PRN pain meds may be honored when the patient requests a less strong medication, a lower dose, or a less intrusive route of administration when the lesser drug, dose and route have been ordered for the patient. This patient request must be documented in the MAR. 2145 ($ Given - Provider: Parisa Soares RN) 011 (Not Administered - Provider: Parisa Soares RN - Reason: Refused-Patient - Comment: pt states he wants toradol instead)043 ($ Given - Provider: Parisa Soares RN)08 ($ Given - Provider: Angelina Garcia RN) potassium chloride ER (Klor-Con M) tablet 40 mEq 40 mEq, Oral, DAILY WITH BREAKFAST, First dose on Tue09/21/21 at 0800, Until Discontinued, Do not crush or chew. 0805 ($ Given - Provider: Angelina Garcia RN) 0800 ($ Given - Provider: Angelina Garcia RN) pravastatin (Pravachol) tablet 40 mg 40 mg, Oral, AT BEDTIME, First dose on Tue09/15/21 at 2315, Until Discontinued 2050 ($ Given - Provider: Parisa Soares RN) 213 ($ Given - Provider: Parisa Soares RN) senna-docusate (Senokot-S) tablet 1 tablet 1 tablet, Oral, DAILY, First dose on Tue09/21/21 at 0900, Until Discontinued 08 ($ Given - Provider: Angelina Garcia RN) 08 ($ Given - Provider: Angelina Garcia RN) traMADol (Ultram) tablet 100 mg 100 mg, Oral, EVERY 8 HOURS, First dose on Tue09/21/21 at 0945, Until Discontinued, Patient preference for lesser PRN pain meds may be honored when the patient requests a less strong medication, a lower dose, or a less intrusive route of administration when the lesser drug, dose and route have been ordered for the patient. This patient request must be documented in the MAR. 1246 (Canceled Entry - Provider: Angelina Garcia RN)1247 ($ Given - Provider: Angelina Garcia RN)2138 ($ Given - Provider: Parisa Soares RN) 0551 ($ Given - Provider: Parisa Soares RN) Continuous Medication Order 09/20/2021 09/21/2021 09/22/2021 dextrose 5 % and 0.45% NaCl infusion (CANCELED) at 100 mL/hr, Intravenous, CONTINUOUS, Starting on Avani 09/17/21 at 1815, Until 09/20/21 at 1645 0304 ($ New Bag/Syringe - Provider: Zackery García RN) HYDROmorphone (Dilaudid) 0.2 mg/ml [employer]ER (CANCELED) [employer]ER Dose: 0.4 mg, [employer] Lockout Interval: 15 Minutes, One Hour Limit\Max Limit: 1.6 mg, Clinician Bolus (Load): 0.2 mg, Intravenous, [employer], Starting on Avani 09/17/21 at 2000, Until Tue09/20/21 at 1645, [employer] Pump Therapy: 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 bisacodyl (Dulcolax) suppository 10 mg 10 mg, Rectal, EVERY 8 HOURS PRN, Constipation, if miralax ineffective, Starting on Tue09/21/21 at 0633, Until Tue09/22/21 at 1049 cyclobenzaprine (Flexeril) tablet 10 mg (CANCELED) 10 mg, Oral, 3 TIMES DAILY PRN, Muscle Spasms, Starting on Tue09/20/21 at 0706, Until Tue09/21/21 at 1249 0805 ($ Given - Provider: Angelina Garcia RN) dextrose 10 % IV bolus(Linked Group 2) 12.5 g, at 468.75 mL/hr, Intravenous, PRN, Other, Bedside Glucose less than 70 mg/dL -If NOT able to eat and/or NPO and with IV Access, Starting on Tue09/15/21 at 2157, Until Tue09/22/21 at 1049, If NOT able to eat and/or NPO [...] NPO and with IV Access, Starting on Tue09/15/21 at 2156, Until Tue09/22/21 at 1048, If NOT able to eat and/or NPO [...] 80 mg/dl. NOTIFY PROVIDER OF HYPOGLYCEMIC EVENT. glucagon (Glucagen) injection 1 mg 1 mg, Intramuscular, PRN, Bedside Glucose less than 70 mg/dL - If NOT able to eat and/or NPO and withOUT IV Access, Starting on Tue09/15/21 at 2156, Until Tue09/22/21 at 1048, If NOT able to eat and/or NPO and NO IV Access: For Bedside glucose 54-69 mg/dL Give 1 mg IM or SQ For Bedside Glucose LESS than 54 mg/dl verify with a second bedside glucose (from a different site) and Give 1 mg IM or SQ Re-check and Re-treat blood glucose EVERY [...] does not have swallowing difficulties, Starting on Tue09/15/21 at 2156, Until Tue09/22/21 at 1048, If able to eat and can swallow [...] pt is symptomatic, do not delay treatment Consider confirming the glucose with a STAT laboratory test Give [...] 80 mg/dl. NOTIFY PROVIDER OF HYPOGLYCEMIC EVENT. glucose (Diabetic Use) oral gel Oral, PRN, Other, Bedside Glucose less than 70 mg/dL -If able to eat and does not have swallowing difficulties, Starting on Tue09/15/21 at 2157, Until Tue09/22/21 at 1049, If able to eat and is better [...] pt is symptomatic, do not delay treatment Consider confirming the glucose with a STAT laboratory test Give [...] 80 mg/dl. NOTIFY PROVIDER OF HYPOGLYCEMIC EVENT. glucose chew tablet 4 tablet 4 tablet (16 g), Oral, PRN, Other, Bedside Glucose less than 70 mg/dL -If able to eat and does not have swallowing difficulties, Starting on Tue09/15/21 at 2157, Until Tue09/22/21 at 1049, If able to eat and does not [...] pt is symptomatic, do not delay treatment Consider confirming the glucose with a STAT laboratory test Give 32 grams of oral carbohydrates - 8 glucose tabs (see MAR) If patient refuses glucose gel, then offer: - 8 ounces of fruit juice OR - 8 ounces non-diet soda OR - 16 ounces of fat-free milk Re-check and Re-treat blood glucose EVERY 10-25 minutes until blood glucose GREATER than or equal to 80 mg/dl. NOTIFY PROVIDER OF HYPOGLYCEMIC EVENT. hydrALAZINE (Apresoline) injection 10 mg 10 mg, Intravenous, EVERY 4 HOURS PRN, SBP greater than 160 mmHg, Hold for HR >90, Starting on Tue09/15/21 at 1750, Until Tue09/22/21 at 1049 HYDROmorphone (Dilaudid) injection 0.1 mg(Linked Group 3) 0.1 mg, Intravenous, EVERY 2 HOURS PRN, Moderate Pain, Starting on Tue09/15/21 at 2057, Until Tue09/22/21 at 1049, If oral route not effective Patient preference for lesser PRN pain meds may be honored when the patient requests a less strong medication, a lower dose, or a less intrusive route of administration when the lesser drug, dose and route have been ordered for the patient. This patient request must be documented in the MAR. HYDROmorphone (Dilaudid) injection 0.2 mg(Linked Group 3) 0.2 mg, Intravenous, EVERY 2 HOURS PRN, Severe Pain, Starting on Tue09/15/21 at 2057, Until Tue09/22/21 at 1049, Give IV if PO is refused, ineffective, or not tolerated Patient preference for lesser PRN pain meds may be honored when the patient requests a less strong medication, a lower dose, or a less intrusive route of administration when the lesser drug, dose and route have been ordered for the patient. This patient request must be documented in the MAR. ketorolac (Toradol) injection 30 mg () 30 mg, Intravenous, EVERY 6 HOURS PRN, Moderate Pain, Starting on Tue09/16/21 at 1155, Until Tue09/21/21 at 1154 0115 ($ Given - Provider: Parisa Soares RN)0804 ($ Given - Provider: Angelina Garcia RN) labetalol (Normodyne; Trandate) injection 10 mg 10 mg, Intravenous, EVERY 4 HOURS PRN, SBP greater than 160 mmHg, Hold for HR <60, Starting on Tue09/15/21 at 1751, Until Tue09/22/21 at 1049, Max IV dose is 300mg/24 hours. lidocaine viscous (Xylocaine) 2 % solution 5 mL 5 mL, Mouth/Throat, 3 TIMES DAILY PRN, Sore Throat, Starting on Tue09/16/21 at 0952, Until Tue09/22/21 at 1049, Maximum 8 doses per day. naloxone (Narcan) injection 0.2 mg 0.2 mg, Intravenous, PRN, Other, respiratory rate less than 8 OR difficult to arouse, Starting on Avani 09/17/21 at 1010, Until Tue09/22/21 at 1049, For respiratory rate LESS than 8 per minute OR difficult to arouse ondansetron (Zofran) injection 4 mg 4 mg, Intravenous, EVERY 6 HOURS PRN, Nausea/Vomiting, Starting on Tue09/16/21 at 1051, Until Tue09/22/21 at 1049, Administer over 2 to 5 minutes. oxyCODONE (immediate release) (Roxicodone) tablet 10 mg(Linked Group 4) 10 mg, Oral, EVERY 6 HOURS PRN, Severe Pain, Starting on Tue09/21/21 at 0905, Until Tue09/22/21 at 1049, Patient preference for lesser PRN pain meds may be honored when the patient requests a less strong medication, a lower dose, or a less intrusive route of administration when the lesser drug, dose and route have been ordered for the patient. This patient request must be documented in the JUL. 1246 ($ Given - Provider: Angelina Garcia RN) oxyCODONE (immediate release) (Roxicodone) tablet 5 mg(Linked Group 4) 5 mg, Oral, EVERY 6 HOURS PRN, Moderate Pain, Starting on Tue09/21/21 at 0905, Until Tue09/22/21 at 1049, Patient preference for lesser PRN pain meds may be honored when the patient requests a less strong medication, a lower dose, or a less intrusive route of administration when the lesser drug, dose and route have been ordered for the patient. This patient request must be documented in the 1245 (See Alternative - Provider: Angelina Garcia RN) polyethylene glycol 3350 (Miralax) packet 17 g 17 g, Oral, DAILY PRN, Constipation, Starting on 09/21/21 at 0630, Until Tue09/22/21 at 1049, Mix in 8 ounces of water, juice, soda, coffee or tea prior to administration prochlorperazine (Compazine) injection 10 mg 10 mg, Intravenous, EVERY 6 HOURS PRN, Nausea/Vomiting, Starting on Avani 09/17/21 at 0055, Until Tue09/22/21 at 1049, Max intravenous rate = 5 mg/min throat lozenge 1 lozenge 1 lozenge, Oral, EVERY 2 HOURS PRN, Sore Throat, Starting on Tue09/16/21 at 0603, Until Tue09/22/21 at 1049 Linked Groups Order Group 1: SALINE LOCK, INSERT AND MAINTAIN (CANCELED) Routine, CONTINUOUS, Starting on Tue09/15/21 at 1800, Until Specified, New collection And 0.9% NaCl injection 3 mLJump to med 3 mL, Intracatheter, EVERY 8 HOURS, First dose on Tue09/15/21 at 2200, Until Discontinued, Flush peripheral IV catheter with 3 mL of normal saline every 8 hours. And 0.9% NaCl injection 1-10 mLJump to med 1-10 mL, Intracatheter, PRN, Other, peripheral line flush, Starting on Tue09/15/21 at 1747, Until Tue09/22/21 at 1049, Flush peripheral IV catheter with 1-10 mL of normal saline before and after medications and prn to clear blood from the line or to verify patency. Group 2: dextrose 10 % IV bolusJump to med 12.5 g, at 468.75 mL/hr, Intravenous, PRN, Other, Bedside Glucose less than 70 mg/dL -If NOT able to eat and/or NPO and with IV Access, Starting on Tue09/15/21 at 2157, Until Tue09/22/21 at 1049, If NOT able to eat and/or NPO [...] NPO and with IV Access, Starting on Tue09/15/21 at 2156, Until Tue09/22/21 at 1048, If NOT able to eat and/or NPO [...] 80 mg/dl. NOTIFY PROVIDER OF HYPOGLYCEMIC EVENT. Group 3: HYDROmorphone (Dilaudid) injection 0.1 mgJump to med 0.1 mg, Intravenous, EVERY 2 HOURS PRN, Moderate Pain, Starting on Tue09/15/21 at 2056, Until Tue09/22/21 at 1048, If oral route not effective Patient preference for lesser PRN pain meds may be honored when the patient requests a less strong medication, a lower dose, or a less intrusive route of administration when the lesser drug, dose and route have been ordered for the patient. This patient request must be documented in the MAR. Or HYDROmorphone (Dilaudid) injection 0.2 mgJump to med 0.2 mg, Intravenous, EVERY 2 HOURS PRN, Severe Pain, Starting on Tue09/15/21 at 2056, Until Tue09/22/21 at 1048, Give IV if PO is refused, ineffective, or not tolerated Patient preference for lesser PRN pain meds may be honored when the patient requests a less strong medication, a lower dose, or a less intrusive route of administration when the lesser drug, dose and route have been ordered for the patient. This patient request must be documented in the MAR. Group 4: oxyCODONE (immediate release) (Roxicodone) tablet 5 mgJump to med 5 mg, Oral, EVERY 6 HOURS PRN, Moderate Pain, Starting on Tue09/21/21 at 0905, Until Tue09/22/21 at 1049, Patient preference for lesser PRN pain meds may be honored when the patient requests a less strong medication, a lower dose, or a less intrusive route of administration when the lesser drug, dose and route have been ordered for the patient. This patient request must be documented in the MAR. Or oxyCODONE (immediate release) (Roxicodone) tablet 10 mgJump to med 10 mg, Oral, EVERY 6 HOURS PRN, Severe Pain, Starting on Tue09/21/21 at 0905, Until Tue09/22/21 at 1049, Patient preference for lesser PRN pain meds may be honored when the patient requests a less strong medication, a lower dose, or a less intrusive route of administration when the lesser drug, dose and route have been ordered for the patient. This patient request must be documented in the MAR. documented in this encounter Care Teams Decontamination Technician Relationship Specialty Start Date End Date Maria Alejandra Benjamin MD [address] [place] [id number] PCP - General Family Medicine Geriatric Medicine 09/16/21 09/20/21 documented as of this encounter
--- OUTSIDE RECORDS SUMMARY | 2024-05-13 10:43 | XMS_ITS | Clinical Summary ---
Author Organization [facility] Address [address] [place] [address]. [place] [address] [place] [address] Care Team Providers Care Human Resources Consultant Name Role Phone Pankaj Rosenberg MD Primary Care Provider [phone] Allergies No known active allergies Medications CPAP DEVICE, DME,Indications:O SA (obstructive sleep apnea) Use daily when sleeping or taking a nap. 1 Device Active Blood Glucose Monitoring Suppl (ONETOUCH VERIO REFLECT) w/Device Kit 1 Units by Does not apply route 2 (two) times daily. Active Lancets (ONETOUCH DELICA PLUS [id number]) [facility] [place] USE 1 LANCET TO PRICK FINGER TWICE DAILY BEFORE TESTING Active TRUEplus Lancets 33G Misc Active mupirocin (BACTROBAN) 2 % ointmentIndicatio ns:Dermatitis Apply topically 2 (two) times daily. Use on the scalp on the rash. 22 g 3 023 Active Additional Information Patient not taking.Reported on 05/01/2024 Chlorhexidine Gluconate 2 % SolutionIndicatio ns:Folliculitis Use twice daily for rash. 473 mL 024 Active Additional Information Patient not taking.Reported on 05/01/2024 tretinoin (RETIN-A) 0.1 % creamIndications: Acne vulgaris Apply topically nightly at bedtime. 45 g 4 024 Active Additional Information Patient not taking.Reported on 05/01/2024 vilazodone (VIIBRYD) 10 MG tabletIndications :Mild episode of recurrent major depressive disorder (CMS/HCC) Take 1 tablet (10 mg total) by mouth daily. Take with food 30 tablet 5 Active Additional Information Patient not taking.Reported on 05/01/2024 montelukast (SINGULAIR) 10 MG tabletIndications :Environmental allergies,Allergi c rhinitis, unspecified seasonality, unspecified trigger Take 1 tablet (10 mg total) by mouth nightly at bedtime. 30 tablet 6 Active lisinopril (PRINIVIL) 10 MG tabletIndications :Hypertension associated with type 2 diabetes mellitus (CMS/HCC HHS/HCC),Essentia l hypertension, benign Take 1 tablet (10 mg total) by mouth daily. 90 tablet 1 Active ezetimibe (ZETIA) 10 MG tabletIndications :Mixed hyperlipidemia Take 1 tablet (10 mg total) by mouth daily. 90 tablet 1 Active azelastine (ASTELIN) 0.1 % nasal sprayIndications: Allergic rhinitis, unspecified seasonality, unspecified trigger USE 1 SPRAY IN EACH NOSTRIL TWICE DAILY DIRECTED 90 mL Active cyclobenzaprine (FLEXERIL) 5 MG tabletIndications :Acute pain of left shoulder Take 1 tablet (5 mg total) by mouth nightly as needed for Muscle Spasms. 20 tablet Active Additional Information Patient not taking.Reported on 05/01/2024 pravastatin (PRAVACHOL) 40 MG tabletIndications :Mixed hyperlipidemia,Hy perlipidemia due to type 2 diabetes mellitus (CMS/HCC HHS/HCC) TAKE 1 TABLET(40 MG) BY MOUTH EVERY NIGHT AT BEDTIME 90 tablet 1 Active amLODIPine (NORVASC) 10 MG tabletIndications :Hypertension associated with type 2 diabetes mellitus (CMS/HCC HHS/HCC),Essentia l hypertension, benign TAKE 1 TABLET(10 MG) BY MOUTH DAILY 90 tablet Active sulfaSALAzine (AZULFIDINE) 500 MG tabletIndications :Ileitis,Epigastr ic pain,Generalized abdominal pain,Rectal bleeding,Constipa tion, unspecified constipation type,SBO (small bowel obstruction) (CMS/HCC HHS/HCC) Take 1 tablet (500 mg total) by mouth 2 (two) times daily. 180 tablet 024 2024 Active buPROPion (WELLBUTRIN) 75 MG tabletIndications :Mild episode of recurrent major depressive disorder (CMS/HCC) TAKE 1 TABLET(75 MG) BY MOUTH TWICE DAILY 180 tablet Active TRADJENTA 5 MG tabletIndications :Type 2 diabetes mellitus with hyperglycemia, without long-term current use of insulin (CMS/HCC HHS/HCC) TAKE 1 TABLET(5 MG) BY MOUTH DAILY 90 tablet Active omeprazole (PRILOSEC) 40 MG capsuleIndication s:Gastroesophagea l reflux disease without esophagitis TAKE 1 CAPSULE(40 MG) BY MOUTH DAILY NEEDED 90 capsule 024 Active buPROPion (WELLBUTRIN) 75 MG tabletIndications :Mild episode of recurrent major depressive disorder (CMS/HCC) Take 1 tablet (75 mg total) by mouth 2 (two) times daily. 180 tablet 1 024 2023 Discontinued(R eorder) omeprazole (PRILOSEC) 40 MG capsuleIndication s:Gastroesophagea l reflux disease without esophagitis Take 1 capsule (40 mg total) by mouth daily. 90 capsule 1 024 2023 Discontinued linaGLIPtin (TRADJENTA) 5 MG tabletIndications :Type 2 diabetes mellitus with hyperglycemia, without long-term current use of insulin (CMS/HCC HHS/HCC) Take 1 tablet (5 mg total) by mouth daily. 90 tablet 1 024 2023 Discontinued YARON Armenta, (MEDROL DOSEPAK) 4 MG tabletIndications :Acute pain of left shoulder 6 TABLETS ON DAY ONE, 5 TABLETS DAY TWO, 4 TABLETS DAY THREE, 3 TABLETS DAY FOUR, 2 TABLETS DAY FIVE, AND 1 TABLET DAY SIX 1 each 024 2023 Discontinued(O ther- Please enter comment in Notes field) buPROPion (WELLBUTRIN) 75 MG tabletIndications :Mild episode of recurrent major depressive disorder (CMS/HCC) Take 1 tablet (75 mg total) by mouth 2 (two) times daily. 180 tablet 024 2023 Discontinued Hospital, Clinic, or Other Facility Administered Medication Ordered Dose Route Frequency Start Date End Date Status BUpivacaine (MARCAINE) 0.25 % injection 50 mLIndications:Chronic left shoulder pain [address] Once 04/30/2024 Active triamcinolone acetonide (KENALOG-40) injection 40 mgIndications:Chronic left shoulder pain 40 mg IM Once 04/30/2024 Active lidocaine (XYLOCAINE) 1 % injection SOLN 2 mLIndications:Chronic left shoulder pain 2 mL IX Once 05/01/2024 05/01/2024 Ended triamcinolone acetonide (KENALOG-40) injection 80 mgIndications:Chronic left shoulder pain 80 mg IX Once 05/01/2024 05/01/2024 Ended Active Problems Problem Noted Date Diagnosed Date Hyperlipidemia due to type 2 diabetes mellitus ([facility]) 11/14/2023 Folliculitis 11/14/2023 Mild episode of recurrent major depressive disor isak 11/14/2023 Hypertension associated with type 2 diabetes mellitus ([facility]) 11/14/2023 Generalized abdominal pain 08/09/2023 Rectal bleeding 08/09/2023 Epigastric pain 08/09/2023 Constipation, unspecified constipation type 07/15 SBO (small bowel obstruction) ([facility]) 08/09/2023 Polyp of gallbladder 08/09/2023 KARRIE (obstructive sleep apnea) 11/09/2021 S/P exploratory laparotomy 09/17/2021 S/P small bowel resection 09/17/2021 History of gastroschisis 09/16/2021 Nausea and vomiting, unspecified vomiting type 0 08/04/2021 Overview (08/04/2021): Added automatically from request for surgery [id number] Change in bowel function 08/04/2021 Overview (08/04/2021): Added automatically from request for surgery [id number] Epigastric burning sensation 08/04/2021 Overview (08/04/2021): Added automatically from request for surgery [id number] Gastroesophageal reflux disease without esophagi tis 07/13/2021 Type 2 diabetes mellitus wit h hyperglycemia, without long-term current use of insulin ([facility]) 06/16/2021 Mixed hyperlipidemia 06/15/2021 Arthrogryposis 06/15/2021 Nonalcoholic steatohepatitis 12/11/2020 Gallbladder polyp 12/11/2020 Essential hypertension, benign 12/11/2020 Deviated nasal septum 12/13/2019 Overview (06/15/2021): Last Assessment & Plan: Continue nasal saline 2-3 times per day May blow nose gently Restart Allergy medications once cleared by Instrumentation Supervisor PROCEDURE PERFORMED: Septoplasty Submucosal Reduction of Inferior Turbinates bilaterally Hypertrophy of nasal turbinates 12/13/2019 Overview (11/18/2021): Last Assessment & Plan: Septoplasty and Inferior turbinate submucosal reduction bilaterally Risks and complications include anesthesia, bleeding, infection, injury to surrounding structures including brain with csf leak, eyes with vision changes, nasal mucosa, atrophic rhinitis, septal perforation, no guarantee that sense of smell will return, need for further surgery. Added automatically from request for surgery [id number] Allergic rhinitis 10/22/2019 Overview (06/15/2021): Last Assessment & Plan: Continue nasal saline 2-3 times per day May blow nose gently Restart Allergy medications once cleared by Instrumentation Supervisor Traumatic brain injury ([facility]) 014 Fracture of spinous process of cervical vertebra ([facility]) 08/25/2013 Overview (06/15/2021): C6-7 C6-7 Assessment & Plan (06/15/2021 1:17 PM SPORTS TRAINER): Stable with no concerns for now. Encounters Date Type Department Care Team Description 05/06/2024 Scan Solfo SRVCS Scanned, [facility] (SCAN) 05/06/2024 Scan Reissued SRVCS Scanned, [facility] (SCAN) 05/01/2024 4:00 PM SPORTS TRAINER Office Visit [place] [address] [address] [address] [place] [address] Pankaj Rosenberg MD Follow Up (Joint injection ) 05/01/2024 Travel 04/30/2024 3:40 PM SPORTS TRAINER Telemedicine [address] [place] [address] [address] [place] [address] Pankaj Rosenberg MD Follow Up (Medication f/u for vilazidone and sore shoulder ); Shoulder Pain; Depression 04/30/2024 Telephone [place] [address] [place] [address] [address] [address] [place] [address] Pankaj Rosenberg MD Information 04/23/[address] [place] [address] [address] [place] [address] Pankaj Rosenberg MD Other 04/11/2024 1:20 PM SPORTS TRAINER Office Visit [address], [address] [place] [address] Bob Oneal MD Follow Up 04/11/2024 Travel 02/15/2024 8:00 AM CDT Office Visit [place] [address] [address] [address] [place] [address] Pankaj Rosenberg MD Follow Up; Shoulder Pain (Pt states he might have torn something in his left shoulder states it happened a year ago, got better but has bothered him this past month. ) 02/15/2024 Travel from Last 3 Months Immunizations Name Administration Dates Next Due DTaP-IPV (Kinrix) 05/05/1998 Dtap (Generic) 1994,1994 Dtp (Generic) 05/05/1998,07/20/1995,1994 Fluarix (IIV4) 03/28/2000,03/27/1999,02/20/1999 HPV GARDASIL 9-VALENT 11/14/2023,06/15/2023 HPV4 (Gardasil) 04/11/2013 Hepatitis A (Generic) 08/11/2007 Hepatitis A (Havrix [address]) 04/11/2013 Hepatitis A Vaccine 08/11/2007 Hepatitis B Pediatric 1994,1994,04/15 Hib (Generic) 07/20/1995, 5,1994,07/02 Hib (Generic;4 Dose) 07/20/1995,1994,07/02 Hib 4 Dose Schedule 1994 Influenza (Generic) 2013, 2,02/05/2009,03/22,03/29/2007,03/28/2000,03/27/1999 ,02/20/1999 Influenza Adult (Generic) 04/03/2013 MMR (MMRII) 05/05/1998,04/27/1995 Meningococcal (Menactra) 04/11/2013 PFIZER COVID-19 (ORIGINAL FO RMULATION, PURPLE CAP) mRNA, LNP-S, PF, 30 MCG/0.3 ML DOSE 09/20/2020,08/28/2020 Pneumococcal (Pneumovax 23) 08/21/2021 Pneumococcal (Prevnar 13) 03/09/2023 Polio IPV (Ipol) 1994,1994 Polio Ipv (Generic) 05/05/1998 Polio Opv (Generic) 05/05/1998,07/20/1995,1994 Tdap (Adacel) 11/14/2023 Tdap (Generic) 08/25/2013,08/11/2007 Varicella (Varivax) 08/11/2007,04/27/1995 Family History Medical History Relation Comments No Known Problems Father Heart Disease Maternal Grandfather No Known Problems Mother Heart Disease Paternal Grandfather Thyroid Disease Paternal Grandfather Relation Status Comments Father Maternal Grandfather Mother Alive Paternal Grandfather Social History Tobacco Use Types Packs/Day Years Used Date Smoking Tobacco: Never Smokeless Tobacco: Former Snuff, Chew Quit: 08/14/2020 Tobacco Cessation:Counseling Given: Yes Comments:counseled by Dr Rosenberg Alcohol Use Standard Drinks/Week Comments Yes 5 (1 standard drink = 0.6 oz pur e alcohol) socially on weekends PHQ-2 Answer Date Recorded Patient Health Questionnaire-2 Score 2 02/15/2024 Sex and Gender Information Value Date Recorded Sex Assigned at Not on file Legal Sex Male 2:58 PM SPORTS TRAINER Gender Identity Male 07/13/2021 5:19 AM SPORTS TRAINER Sexual Orientation Straight 07/13/2021 5: 19 AM SPORTS TRAINER Last Filed Vital Signs Vital Sign Reading Time Taken Comments Blood Pressure 139/91 05/01/2024 4:30 PM SPORTS TRAINER Pulse 85 05/01/2024 4:08 PM SPORTS TRAINER Temperature 36.4 ??C (97.6 ??F) 05/01/2024 4:08 PM CS T Respiratory Rate 18 05/01/2024 4:08 PM SPORTS TRAINER Oxygen Saturation 97% 05/01/2024 4:08 PM SPORTS TRAINER Inhaled Oxygen Concentration - - Weight 120.4 kg (265 lb 6.4 oz) 05/01/2024 4:08 PM SPORTS TRAINER Height 180.3 cm (5' 11 ) 05/01/2024 4:08 PM SPORTS TRAINER Body Mass Index 37.02 05/01/2024 4:08 PM SPORTS TRAINER Plan of Treatment Upcoming Encounters Date Type Department Care Team (Late st Contact Info) Description 05/15/2024 3:30 PM [place] [address] Pankaj Rosenberg MD [address] [place] [address] 05/25/2024 12:45 PM SPORTS TRAINER Office Visit [facility] Physical Therapy [address] [place] [address] Pankaj Rosenberg MD [address] [place] [address] Maya Magaña, [place] [address] 05/30/2024 3:40 PM SPORTS TRAINER Office Visit [facility] [place] [address] [address] [place] [address] Pankaj Rosenberg MD [address] [address] 06/20/2024 3:40 PM SPORTS TRAINER [facility] - [address] [place] [address] Pankaj Rosenberg MD [address] [address] 06/21/2024 1:00 PM SPORTS TRAINER Office Visit [facility] [place] [address] [place] [address] Jose Ratliff MD [address] [facility] [id number] [place] [address] 03/27/2025 1:00 PM SPORTS TRAINER Office Visit [facility] [address] [facility] [address] [place] [address] Bob Oneal MD 3 [facility] [address] [place] [address] Health Maintenance Due Date Last Done Comments COVID-19 Vaccine ( season) 2024 09/20/2020, 08/28/2020 Diabetes: Retinopathy Eye Exam 02/25/2024 02/24/2022 Hemoglobin A1C 06/01/2024 11/30/2023, 11/0 01/2023, 09/22/2022, Additional history exists Annual Physical 11/13/2024 11/14/2023, 05/18, 06/15/2021 Kidney Health Evaluation 11/13/2024 11/14/2023 Lipid Panel 11/29/2024 11/30/2023, 0 01/2023, 09/22/2022, Additional history exists Influenza Adult (#1) 2025 2013, 04/03/2013, 02/28/2012, Additional history exists Postponed from 02/14/2024 (Patient Refused) DTaP, Tdap and Td Vaccines (9 - Td or Tdap) 11/13/2033 11/14/2023, 08/25/2013, 08/11/2007, Additional history exists Pneumococcal Vaccine: Pediatrics (0 to 5 Years) and At-Risk Patients (6 to 64 Years) (3 of 3 - PPSV23 or PCV20) 2059 03/09/2023, 08/21/2021 Hepatitis B Vaccines Completed 1994, 1994, 1994 Meningococcal Vaccine Completed 04/11/2013 Hepatitis C Completed 09/22/2022, 06/15/2021 HPV Vaccines Completed 11/14/2023, 05/18, 04/11/2013 RSV Immunizations Under 20 Months Aged Out No longer eligible based on patient's age to complete this topic Procedures Procedure Name Priority Date/Time Associated Diagnosis Comments OUTSIDE LAB (SCAN ORDER) 05/06/2024 OUTSIDE LAB COVID-19 (SCAN ORDER) Routine 05/06/2024 OUTSIDE LAB (SCAN ORDER) 05/06/2024 OUTSIDE LAB (SCAN ORDER) 05/06/2024 DRAIN/INJECT LARGE JOINT/BURSA Routine 05/01/2024 4:00 PM SPORTS TRAINER Chronic left shoulder pain XR SHOULDER LT MIN 2V Routine 02/15/2024 9:10 AM CDT Acute pain of left shoulder LIPID PANEL Routine 11/30/2023 9:12 AM CDT Annual physical exam General medical exam Screening for hyperlipidemia HEMOGLOBIN, GLYCOSYLATED Routine 11/30/2023 9:12 AM CDT Annual physical exam General medical exam Screening for diabetes mellitus HEPATITIS C ANTIBODY Routine 09/22/2022 7:42 AM CDT Annual physical exam DIABETIC RETINOPATHY EXAM (NEGATIVE)(SCAN ORDER) Routine 02/24/2022 from Last 3 Months or Most Recently Relevant to Health Maintenance Results * OUTSIDE LAB COVID-19 (05/06/2024) CORONAVIRUS SARS COV 2 PCR (RESP) NOT DETECTED NOT DETECTED [facility] 05/06/2024 Result [facility] Scanned SCANNING Final Resu lt [facility] * OUTSIDE LAB (SCAN ORDER) (05/06/2024) Only the most recent of3 resultswithin the time period is included. 05/06/2024 Result [facility] Scanned SCANNING Final Resu lt * DRAIN/INJECT LARGE JOINT/BURSA (05/01/2024 4:00 PM SPORTS TRAINER) Narrative Pankaj Rosenbegr MD - 05/01/2024 4:00 PM SPORTS TRAINER Pankaj Rosenberg MD ? 05/01/2024 ??4:26 PM *Joint Aspiration/Injection Date/Time: 05/01/2024 4:00 PM Performed by: Pankaj Rosenberg MD Authorized by: Pankaj Rosenberg MD ?? Consent: ??Consent obtained: ??Verbal ??Consent given by: ??Patient ??Risks discussed: ??Pain ??Alternatives discussed: ??No treatment [place] protocol: ??Procedure explained and questions answered to patient or proxy's satisfaction: yes ?Relevant documents present and verified: yes ?Imaging studies available: yes ?Patient identity confirmed: ??Verbally with patient Location: ??Location: ??Shoulder ??Shoulder: ??L glenohumeral Procedure details: ??Needle gauge: ??18 G ??Ultrasound guidance: no ?Approach: ??Posterior ??Steroid injected: yes ?Specimen collected: no ?? Post-procedure details: ??Dressing: ??Sterile dressing ??Procedure completion: ??Tolerated Pankaj Rosenberg MD PROCEDURE/MINOR SURGICAL ORDERAB LES Final Result * XR SHOULDER LT MIN 2V (02/15/2024 9:10 AM CDT) Anatomical Region Laterality Modality Shoulder Radiographic Merissa ging 02/15/2024 9:30 AM CDT Narrative 02/15/2024 10:49 AM CDT [address] ??[address] ??[address] EXAMINATION: XR left shoulder HISTORY: Left shoulder pain x 1 month EXAM TIME: 02/15/2024 9:03 AM COMPARISON: None TECHNIQUE: 2 views of the left shoulder were obtained FINDINGS: No acute fractures ??or other bony abnormalities are identified in the left shoulder. ??There is mild lateral acromial downsloping. ??The glenohumeral joint has a normal appearance. ??The acromioclavicular and coracoclavicular relationships are maintained. IMPRESSION: 1. No acute fracture of the left shoulder. 2. Mild lateral acromial downsloping, which could impress upon the underlying supraspinatus. Dictated By: China Ryan DO on 02/15/2024 9:30 AM Referred By: PANKAJ ROSENBERG Interpreted By: China Ryan DO, 02/15/2024 9:30 AM Procedure Note Benjamin Pearce DO - 02/15/[address] [address] [place] [id number] [place] [address] EXAMINATION: XR left shoulder HISTORY: Left shoulder pain x 1 month EXAM TIME: 02/15/2024 9:03 AM COMPARISON: None TECHNIQUE: 2 views of the left shoulder were obtained FINDINGS: No acute fractures or other bony abnormalities are identified in the leftshoulder. There is mild lateral acromial downsloping. The glenohumeraljoint has a normal appearance. The acromioclavicular and coracoclavicularrelationships are maintained. IMPRESSION: 1. No acute fracture of the left shoulder. 2. Mild lateral acromial downsloping, which could impress upon theunderlying supraspinatus. Dictated By: China Ryan DO on 02/15/2024 9:30 AM Referred By: PANKAJ ROSENBERG Interpreted By: China Ryan DO, 02/15/2024 9:30 AM Pankaj Rosenberg MD GENERAL IMAGING Final Result * (ABNORMAL) HEMOGLOBIN, GLYCOSYLATED (11/30/2023 9:12 AM CDT) HGB A1C 6.0 4.5 - 6.2 % 11/30/2023 7:35 PM CDT [facility] ESTIMATED AVG GLUCOSE 126(H) 74 - 106 MG/DL 11/30/2023 7:35 PM CDT [facility] 11/30/2023 9:12 AM CDT Pankaj Rosenberg MD LABORATORY Final Result [facility] [address] [place] [address], * (ABNORMAL) LIPID PANEL (11/30/2023 9:12 AM CDT) Pathologist [facility] CHOLESTEROL 146 <200 MG/DL 11/30/2023 3:42 PM CDT [facility] TRIGLYCERIDES 131 <150 MG/DL 11/30/2023 3:42 PM CDT [facility] HDL 39(L) >40 MG/DL 11/30/2023 3:42 PM CDT [facility] LDL-C 81 <100 MG/DL 11/30/2023 3:42 PM CDT [facility] VLDL CALCULATION 26 5 - 28 MG/DL 11/30/2023 3:42 PM CDT [facility] CHOL/HDL RATIO 3.7 0.0 - 4.0 11/30/2023 3:42 PM CDT [facility] LDL/HDL 2.1 0.41 - 2.13 11/30/2023 3:42 PM CDT [facility] NON HDL CHOLESTEROL 107 <140 MG/DL 11/30/2023 3:42 PM CDT [facility] 11/30/2023 9:12 AM CDT us Pankaj Rosenberg MD LABORATORY Final Result [facility] [address] [place] [address], [place] [phone] * HEPATITIS C ANTIBODY ([facility] ONLY) (09/22/2022 7:42 AM CDT) HEPATITIS C AB NON-REACTI VE NON-REACT RACHELLE 09/22/2022 11:59 PM CDT [facility] Comment: ANTIBODIES TO HCV NOT DETECTED. DOES NOT EXCLUDE THE POSSIBILITY OF EXPOSURE TO HCV. 09/22/2022 7:42 AM CDT us Pankaj Rosenberg MD LABORATORY Final Result [facility] [address] [place] [address], [place] [phone] [id number] * DIABETIC RETINOPATHY EXAM (NEGATIVE)(SCAN) (02/24/2022) us [facility] Scanned SCANNING Final Resu lt [facility] ONBASE from Last 3 Months or Most Recently Relevant to Health Maintenance Insurance MEDICAID DEPT OF [address] Care Teams Human Resources Consultant Relationship Specialty Start Date End Date Pankaj Rosenberg MD [address] [facility] [address] [place] [id number] PCP - General INTERNAL MEDICINE 06/15/21
--- OUTSIDE RECORDS SUMMARY | 2024-05-13 10:43 | XMS_ITS | Encounter Summary ---
Author Organization [facility] Address [address] [place] [address]. [place] [address] [place] [address] Care Team Providers Care Clinical Appeals Specialist Name Role Phone Pankaj Rosenberg MD Primary Care Provider [phone] Reason for Visit * Reason Comments Lab (SCAN) Encounter Details Date Type Department Care Team (Latest Contact Info) Description 12/12/2023 Scan HEALTH INFO SRVCS Scanned, Doc Med Group Lab (SCAN) Social History Tobacco Use Types Packs/Day Years Used Date Smoking Tobacco: Never Smokeless Tobacco: Former Snuff, Chew Quit: 08/14/2020 Comments:counseled by Dr Sammie gallardo Alcohol Use Standard Drinks/Week Comments Yes 5 (1 standard drink = 0.6 oz pur e alcohol) socially on weekends PHQ-2 Answer Date Recorded Patient Health Questionnaire-2 Score 2 11/14/2023 Sex and Gender Information Value Date Recorded Sex Assigned at Not on file Legal Sex Male 2:58 PM RECEIVER Gender Identity Male 07/13/2021 5:19 AM RECEIVER Sexual Orientation Straight 07/13/2021 5: 19 AM RECEIVER documented as of this encounter Plan of Treatment Upcoming Encounters Date Type Department Care Team (Late st Contact Info) Description 05/15/2024 3:[address] [facility] [place] [place] [address] Pankaj Rosenberg MD [address] [facility] [address] [place] [address] 05/25/2024 12:45 PM RECEIVER Office Visit [facility] Physical Therapy [address] [address] Pankaj Rosenberg MD [address] [address] Maya Magaña, [place] [address] 05/30/2024 3:40 PM RECEIVER [facility] [place] [address] [address] [place] [address] Pankaj Rosenberg MD [address] [address] 06/20/2024 3:40 PM RECEIVER [facility] [place] [address] [address] [place] [address] Pankaj Rosenberg MD [address] [address] 06/21/2024 1:00 PM RECEIVER Office Visit [facility] Orthopedic & Sports Medicine - [place] [address] [place] [address] Jose Ratliff MD [id number] [place] [address] 03/27/2025 1:00 PM RECEIVER Office Visit [facility] Care - [facility] [address] [facility] [place] [address] Bob Oneal MD 3 [facility] [address] [place] [address] documented as of this encounter Procedures Procedure Name Priority Date/Time Associated Diagnosis Comments OUTSIDE LAB COVID-19 (SCAN ORDER) Routine 12/12/2023 documented in this encounter Results * OUTSIDE LAB COVID-19 (12/12/2023) CORONAVIRUS SARS COV 2 PCR (RESP) NOT DETECTED NOT DETECTED [facility] 12/12/2023 us Doc Med Group Scanned SCANNING Final Resu lt [facility] documented in this encounter Visit Diagnoses Not on filedocumented in this encounter Additional Health Concerns Assessment Noted Time PHQ-9 Depression Total Score: 4 06/15/19 24 9:40 AM RECEIVER documented as of this encounter Care Teams Clinical Appeals Specialist Relationship Specialty Start Date End Date Pankaj Rosenberg MD [address] [address] PCP - General INTERNAL MEDICINE 06/15/21 documented as of this encounter
--- OUTSIDE RECORDS SUMMARY | 2024-05-13 10:43 | XMS_ITS | Encounter Summary ---
Author Organization [facility] Address [address] [place] [address]. [place] [address] [place] [address] Care Team Providers Care Ticket Puller Name Role Phone Pankaj Rosenberg MD Primary Care Provider [phone] Reason for Visit * Reason Onset Date Comments Refill Request 01/27/2024 Encounter Details Date Type Department Care Team (Late st Contact Info) Description 01/27/2024 Telephone [facility] Medical Group Multispecialty Care - [facility] [address] [facility] [place] [address] Bob Oneal MD 3 [facility] [address] [place] [address] Refill Request Social History Tobacco Use Types Packs/Day Years [...] on file Legal Sex Male 2:58 PM NUMERICAL CONTROL LATHE OPERATOR Gender Identity Male 07/13/2021 5:19 AM NUMERICAL CONTROL LATHE OPERATOR Sexual Orientation Straight 07/13/2021 5: 19 AM NUMERICAL CONTROL LATHE OPERATOR documented as of this encounter Progress Notes * Amara Mcgarry LPN - 01/27/2024 9:51 AM CDT Pt called to r/s appt. Pt moved to 04/11/24. Script sent to pharmacy to cover until f/u documented in this encounter Plan of Treatment Upcoming Encounters Date Type Department Care Team (Late st Contact Info) Description 05/15/2024 3:30 PM NUMERICAL CONTROL LATHE OPERATOR Appointment [facility] [place] [address] Pankaj Rosenberg MD [address] [place] [address] 05/25/2024 12:45 PM NUMERICAL CONTROL LATHE OPERATOR Office Visit [facility] Physical Therapy [address] [place] [address] Pankaj Rosenberg MD [address] [place] [address] Maya Magaña, [place] [address] 05/30/2024 3:40 PM NUMERICAL CONTROL LATHE OPERATOR [facility] Care - [address] [address] Pankaj Rosenberg MD [address] [place] [address] 06/20/2024 3:40 PM NUMERICAL CONTROL LATHE OPERATOR Telemedicine [facility] - [address] [address] Pankaj Rosenberg MD [address] [place] [address] 06/21/2024 1:00 PM NUMERICAL CONTROL LATHE OPERATOR Office Visit [facility] Orthopedic & Sports Medicine - [place] [address] [place] [address] Jose Ratliff MD [address] [place] [address] [place] [address] 03/27/2025 1:00 PM NUMERICAL CONTROL LATHE OPERATOR Office Visit [facility] Multispecialty Care - [facility] [address] [facility] [place] [address] Bob Oneal MD 3 [facility] [address] [place] [address] documented as of this encounter Visit Diagnoses Diagnosis Ileitis- Primary Other and unspecified noninfectious gastroenteritis and colitis Epigastric pain Abdominal pain, epigastric Generalized abdominal pain Abdominal pain, generalized Rectal bleeding Hemorrhage of rectum and anus Constipation, unspecified constipation type SBO (small bowel obstruction) ([facility]) Unspecified intestinal obstruction documented in this encounter Additional Health Concerns Assessment Noted Time PHQ-9 Depression Total Score: 4 06/15/19 24 9:40 AM NUMERICAL CONTROL LATHE OPERATOR documented as of this encounter Care Teams Ticket Puller Relationship Specialty Start Date End Date Pankaj Rosenberg MD [address]8 [facility] [address] [place] [address] PCP - General INTERNAL MEDICINE 06/15/21 documented as of this encounter
--- OUTSIDE RECORDS SUMMARY | 2024-05-13 10:43 | XMS_ITS | Encounter Summary ---
Author Organization [facility] Address [address] [place] [address]. [place], [place] [address] [place] [address] Care Team Providers Care [employer] Name Role Phone Pankaj Rosenberg MD Primary Care Provider [phone] Reason for Visit * Reason Onset Date Comments Other 04/23/2024 Encounter Details Date Type Department Care Team (Late st Contact Info) Description 04/23/2024 Telephone [facility] Medical Group Multispecialty Care - [place] [address] [address] [place] [address] Pankaj Rosenberg MD [address] [place] [address] [address] [place] [address] Other Social History Tobacco Use Types Packs/Day Years [...] on file Legal Sex Male 2:58 PM ROSTER CLERK Gender Identity Male 07/13/2021 5:19 AM ROSTER CLERK Sexual Orientation Straight 07/13/2021 5: 19 AM ROSTER CLERK documented as of this encounter Progress Notes * Isela Daily MA - 04/23/2024 2:01 PM CST Patient called to reschedule his appt for next Tuesday and is wondering if Dr Rosenberg can go ahead andorder an MRI of his left shoulder. ER CLERK documented in this encounter Plan of Treatment Upcoming Encounters Date Type Department Care Team (Late st Contact Info) Description 05/15/2024 3:30 PM ROSTER CLERK Appointment [facility] [place] [address] Pankaj Rosenberg MD [address] [place] [address] 05/25/2024 12:45 PM ROSTER CLERK Office Visit [facility] Physical Therapy [address] [place] [address] Pankaj Rosenberg MD [address] [place] [address] Maya Magaña, [place] [address] 05/30/2024 3:40 PM ROSTER CLERK Office Visit [facility] Medical [facility] Multispecialty Care - [address] [address] Pankaj Rosenberg MD Critical access hospital[address] [address] 06/20/2024 3:40 PM ROSTER CLERK Telemedicine [facility] Multispecialty Care - [place] [address] [address] [place] [address] Pankaj Roesnberg MD Critical access hospital[address] [address] 06/21/2024 1:00 PM ROSTER CLERK Office Visit [facility] Medical Group Orthopedic & Sports Medicine - [address] [place] [address] Jose Ratliff MD [address] [address] [place] [address] 03/27/2025 1:00 PM ROSTER CLERK Office Visit [facility] Medical Group Multispecialty Care - [facility] [address] [facility] [address] [place] [address] Bob Oneal MD [facility] [address] [place] [address] documented as of this encounter Visit Diagnoses Not on filedocumented in this encounter Additional Health Concerns Assessment Noted Time PHQ-9 Depression Total Score: 5 02/15/20 24 8:25 AM CDT documented as of this encounter Care Teams [employer] Relationship Specialty Start Date End Date Pankaj Rosenberg MD [address] [address] PCP - General INTERNAL MEDICINE 06/15/21 documented as of this encounter
--- OUTSIDE RECORDS SUMMARY | 2024-05-13 10:43 | XMS_ITS | Encounter Summary ---
Author Organization [facility] Address [address] [place] [address]. [place], [place] [address] [place] [address] Care Team Providers Care Smoking Tobacco Cutter Operator Name Role Phone Pankaj Rosenberg MD Primary Care Provider [phone] Encounter Details Date Type Department Care Team (Latest Contact Info) Description 04/11/2024 Travel Social History Tobacco Use Types Packs/Day [...] on file Legal Sex Male 2:58 PM INSIDE SALES REPRESENTATIVE Gender Identity Male 07/13/2021 5:19 AM INSIDE SALES REPRESENTATIVE Sexual Orientation Straight 07/13/2021 5: 19 AM INSIDE SALES REPRESENTATIVE documented as of this encounter Plan of Treatment Upcoming Encounters Date Type Department Care Team (Late st Contact Info) Description 05/15/2024 3:30 PM INSIDE SALES REPRESENTATIVE Appointment [facility] [place] [address] Pankaj Rosenberg MD [address] [address] 05/25/2024 12:45 PM INSIDE SALES REPRESENTATIVE Office Visit [facility] Physical Therapy [address] [address] Pankaj Rosenberg MD [address] [address] Maya Magaña, [place] [address] 05/30/2024 3:40 PM INSIDE SALES REPRESENTATIVE Office Visit [facility] Medical [facility] Multispecialty Care - [place] [address] [address] [place] [address] Pankaj Rosenberg MD [address] [address] 06/20/2024 3:40 PM INSIDE SALES REPRESENTATIVE [facility]icine [facility] [place] [address] [address] [place] [address] Paknaj Rosenberg MD [address] [address] 06/21/2024 1:00 PM INSIDE SALES REPRESENTATIVE Office Visit [facility] Medical Group Orthopedic & Sports Medicine - [place] [address] [place] [address] Jose Ratliff MD [phone] [place] [address] 03/27/2025 1:00 PM INSIDE SALES REPRESENTATIVE Office Visit [facility] Medical [facility] Multispecialty Care - [facility] [address] [facility] [place] [address] Bob Oneal MD 3 [facility] [address] [place] [address] documented as of this encounter Visit Diagnoses Not on filedocumented in this encounter Additional Health Concerns Assessment Noted Time PHQ-9 Depression Total Score: 5 02/15/20 24 8:25 AM CDT documented as of this encounter Care Teams Smoking Tobacco Cutter Operator Relationship Specialty Start Date End Date Pankaj Rosenberg MD [address] [address] PCP - General INTERNAL MEDICINE 06/15/21 documented as of this encounter
--- OUTSIDE RECORDS SUMMARY | 2024-05-13 10:43 | XMS_ITS | Encounter Summary ---
Author Organization [facility] Address [address] [place] [address]. [place], [place] [address] [place] [address] Care Team Providers Care Health Safety Specialist Name Role Phone Pankaj Rosenberg MD Primary Care Provider [phone] Encounter Details Date Type Department Care Team (Latest Contact Info) Description 05/01/2024 Travel Social History Tobacco Use Types Packs/Day [...] on file Legal Sex Male 2:58 PM DESK LIEUTENANT Gender Identity Male 07/13/2021 5:19 AM DESK LIEUTENANT Sexual Orientation Straight 07/13/2021 5: 19 AM DESK LIEUTENANT documented as of this encounter Plan of Treatment Upcoming Encounters Date Type Department Care Team (Late st Contact Info) Description 05/15/2024 3:30 PM DESK LIEUTENANT Appointment [facility] [place] [address] Pankaj Rosenberg MD [address] [address] 05/25/2024 12:45 PM DESK LIEUTENANT Office Visit [facility] Physical Therapy [address] [address] Pankaj Rosenberg MD [address] [address] Maya Magaña, [place] [address] 05/30/2024 3:40 PM DESK LIEUTENANT Office Visit [facility] Medical [facility] Multispecialty Care - [place] [address] [address] [place] [address] Pankaj Rosenberg MD [address] [address] 06/20/2024 3:40 PM DESK LIEUTENANT [facility] [place] [address] [address] [place] [address] Pankaj Rosenberg MD [address] [address] 06/21/2024 1:00 PM DESK LIEUTENANT Office Visit [facility] Medical Group Orthopedic & Sports Medicine - [place] [address] [place] [address] Jose Ratliff MD [address] [place] [address] 03/27/2025 1:00 PM DESK LIEUTENANT Office Visit [facility] Medical [facility] Multispecialty Care - [facility] 3 [facility] [address] [place] [address] Bob Oneal MD 3 [facility] [address] [place] [address] documented as of this encounter Visit Diagnoses Not on filedocumented in this encounter Additional Health Concerns Assessment Noted Time PHQ-9 Depression Total Score: 5 02/15/20 24 8:25 AM CDT documented as of this encounter Care Teams Health Safety Specialist Relationship Specialty Start Date End Date Pankaj Rosenberg MD [address] [address] PCP - General INTERNAL MEDICINE 06/15/21 documented as of this encounter
--- OUTSIDE RECORDS SUMMARY | 2024-05-13 10:43 | XMS_ITS | Encounter Summary ---
Author Organization [facility] Address [address] [place] [address]. [place], [place] [id number] [place] [address] Care Team Providers Care Lap Layer Name Role Phone Pankaj Rosenberg MD Primary Care Provider [phone] Reason for Visit * Reason Comments Follow Up Shoulder Pain Pt states he might h ave torn something in his left shoulder states it happened a year ago, got better but has bothered him this past month. Encounter Details Date Type Department Care Team (Latest Contact Info) Description 02/15/2024 8:00 AM CDT Office Visit [facility] Multispecialty Care - [place] [address] [address] [place] [address] Pankaj Rosenberg MD [address] [place] [address] [address] [place] [address] Follow Up; Shoulder Pain (Pt states he might have torn something in his left shoulder states it happened a year ago, got better but has bothered him this past month. ) Social History Tobacco Use Types Packs/Day Years [...] on file Legal Sex Male 2:58 PM BACK UP SCAN COORDINATOR Gender Identity Male 07/13/2021 5:19 AM BACK UP SCAN COORDINATOR Sexual Orientation Straight 07/13/2021 5: 19 AM BACK UP SCAN COORDINATOR documented as of this encounter Patient Instructions * Patient Instructions* Pankaj Rosenberg MD - 02/15/2024 8:00 AM CDT [address] [place] [id number] * Attachments The following attachments cannot be sent through Care Everywhere. * Shoulder Pain Discharge Instructions (Turkmen) documented in this encounter Progress Notes * Pankaj Rosenberg MD - 02/15/2024 8:00 AM CDTSummary: Acute visit notes Images from the original note were not included. Internal Medicine Outpatient Progress Note CC: Follow Up and Shoulder Pain (Pt states he might have torn something in his left shoulder statesit happened a year ago, got better but has bothered him this past month. ) HPI: Chuck Barlow is a 28-year-old male who presents for acute visit for left shoulder pain. He was given wellbutrin to help offset sexual side effects and currently on 75 mg twice daily of wellbutrin while on his antianxiety medication. He is now on vilazodone and will like to come later todiscuss as he did not start medication yet. He plans on starting later and will follow up later to discuss. He will like to discuss his left shoulder today. He reports he hurt his left shoulder about one year ago- mainly sprain. Over the last one month now having another episode of left shoulder pain with throwing or removing his cap from his head or lifting a gallon of milk. Pain is about 2-5/10. Throbbing. No numbness or tingling. Has not tried any pain medications as tyelnol does not help. Not taking ibuprofen. No popping sound with this left shoulder pain. No swelling of the left shoulder. No prior surgeries to the left shoulder. No prior imaging to the left shoulder. Concerned and would like this addressed instead at today's visit. Problem List Patient Active Problem List Diagnosis Mixed hyperlipidemia Traumatic brain injury ([facility]/HCC HHS/HCC) Nonalcoholic steatohepatitis Gallbladder polyp Fracture of spinous process of cervical vertebra ([facility]) Essential hypertension, benign Deviated nasal septum Allergic rhinitis Arthrogryposis Type 2 diabetes mellitus with hyperglycemia, without long-term current use of insulin ([facility]) Gastroesophageal reflux disease without esophagitis Nausea and vomiting, unspecified vomiting type Change in bowel function Epigastric burning sensation KARRIE (obstructive sleep apnea) History of gastroschisis Hypertrophy of nasal turbinates S/P exploratory laparotomy S/P small bowel resection Generalized abdominal pain Rectal bleeding Epigastric pain Constipation, unspecified constipation type SBO (small bowel obstruction) ([facility]) Polyp of gallbladder Hyperlipidemia due to type 2 diabetes mellitus ([facility]) Folliculitis Mild episode of recurrent major depressive disorder ([facility]) Hypertension associated with type 2 diabetes mellitus ([facility]) Past Medical History: Diagnosis Date Allergy Arthrogryposis Diabetes mellitus ([facility]) Hyperlipidemia Hypertension Obstructive sleep apnea Personal history of (corrected) gastroschisis Past Surgical History: Procedure Laterality Date APPENDECTOMY as a baby along with gastroschisis COLONOSCOPY N/A 08/26/2021 COLONOSCOPY WITH POLYPECTOMY performed by Bob Oneal MD at [facility] OR COLONOSCOPY N/A 09/02/2023 Colonoscopy with Biopsy performed by Bob Oneal MD at [facility] OR SEPTOPLASTY SMALL INTESTINE SURGERY Family History Problem Relation Name Age of Onset No Known Problems Mother No Known Problems Father Heart Disease Maternal Grandfather Heart Disease Paternal Grandfather Thyroid Disease Paternal Grandfather Social History Tobacco Use Smoking status: Never Smokeless tobacco: Former Types: Snuff, Chew Quit date: 08/14/2020 Tobacco comments: counseled by Dr Rosenberg Vaping Use Vaping status: Never Used Substance Use Topics Alcohol use: Yes Alcohol/week: 5.0 standard drinks of alcohol Types: 3 Cans of beer per week Comment: socially on weekends Drug use: Never Medications: Outpatient Medications Marked as Taking for the 02/15/24 encounter (Office Visit) with Pankaj Rosenberg MD Medication Sig Dispense Refill amLODIPine (NORVASC) 10 MG tablet Take 1 tablet (10 mg total) by mouth daily. 90 tablet 1 azelastine (ASTELIN) 0.1 % nasal spray USE 1 SPRAY IN EACH NOSTRIL TWICE DAILY DIRECTED 90 mL 1 Blood Glucose Monitoring Suppl (ONETOUCH VERIO REFLECT) w/Device Kit 1 Units by Does not apply route 2 (two) times daily. buPROPion (WELLBUTRIN) 75 MG tablet Take 1 tablet (75 mg total) by mouth 2 (two) times daily. 180 tablet 1 Chlorhexidine Gluconate 2 % Solution Use twice daily for rash. 473 mL 0 CPAP DEVICE, DME, Use daily when sleeping or taking a nap. 1 Device 0 cyclobenzaprine (FLEXERIL) 5 MG tablet Take 1 tablet (5 mg total) by mouth nightly as needed for Muscle Spasms. 20 tablet 0 ezetimibe (ZETIA) 10 MG tablet Take 1 tablet (10 mg total) by mouth daily. 90 tablet 1 Lancets (Wardrobe Housekeeper DELICA PLUS [id number]) [facility] USE 1 LANCET TO PRICK FINGER TWICE DAILY BEFORE TESTING linaGLIPtin (TRADJENTA) 5 MG tablet Take 1 tablet (5 mg total) by mouth daily. 90 tablet 1 lisinopril (PRINIVIL) 10 MG tablet Take 1 tablet (10 mg total) by mouth daily. 90 tablet 1 [START ON 02/17/2024] methylPREDNISolone, YARON, (MEDROL DOSEPAK) 4 MG tablet 6 TABLETS ON DAY ONE, 5 TABLETS DAY TWO, 4 TABLETS DAY THREE, 3 TABLETS DAY FOUR, 2 TABLETS DAY FIVE, AND 1 TABLET DAY SIX 1each 0 montelukast (SINGULAIR) 10 MG tablet Take 1 tablet (10 mg total) by mouth nightly at bedtime. 30 tablet 6 omeprazole (PRILOSEC) 40 MG capsule Take 1 capsule (40 mg total) by mouth daily. 90 capsule 1 pravastatin (PRAVACHOL) 40 MG tablet Take 1 tablet (40 mg total) by mouth nightly at bedtime. 90 tablet 1 sulfaSALAzine (AZULFIDINE) 500 MG tablet Take 1 tablet (500 mg total) by mouth 2 (two) times daily.180 tablet 0 tretinoin (RETIN-A) 0.1 % cream Apply topically nightly at bedtime. 45 g 4 Current Facility-Administered Medications for the 02/15/24 encounter (Office Visit) with Pankaj Rosenberg MD Medication Dose Route Frequency Provider Last Rate Last Admin ketorolac (TORADOL) injection 60 mg 60 mg Intramuscular Once methylPREDNISolone acetate (DEPO-Medrol) injection 40 mg 40 mg Intramuscular Once Allergies: Review of patient's allergies indicates: No Known Allergies Review of Systems Constitutional: Negative for chills, diaphoresis, fever, malaise/fatigue and weight loss. HENT: Negative. Eyes: Negative. Respiratory: Negative. Cardiovascular: Negative for chest pain, palpitations, orthopnea, claudication, leg swelling and PND. Gastrointestinal: Negative. Genitourinary: Negative. Musculoskeletal: Positive for joint pain. Negative for back pain, falls, myalgias and neck pain. Neurological: Negative. Psychiatric/Behavioral: Negative. Objective: There were no vitals filed for this visit. There is no height or weight on file to calculate BMI. General alert, cooperative, no distress HEENT EOM's intact. Oral mucosa normal. Nasal septum is midline. Neck Supple, symmetrical, trachea midline, no adenopathy, no thyromegaly, no JVD. Lungs No acute respiratory distress, no accessory muscle use, symmetric motion of the chest wall, lungs are clear to auscultation bilaterally, no wheezes or rales. Heart Regular rate and regular rhythm. S1, S2 normal. No murmurs. No rubs, clicks, or gallops. Abdomen Soft, non-tender, non-distended. Bowel sounds normal. No masses. No hepatomegaly appreciated. Extremities Extremities atraumatic, no cyanosis, 2+ pedal pulses, no edema Skin Skin color, texture, turgor normal. No rashes or lesions appreciated. Neurologic No focal deficits, motor strength is grossly normal and symmetric Psych Normal mood and affect MSK No synovitis, no bony tenderness, no joint effusions Lymph No cervical or supraclavicular adenopathy Assessment and Plan: Encounter Diagnose(s) ICD-10-CM SNOMED CT(R) 1. Acute pain of left shoulder M25.512 PAIN OF LEFT SHOULDER REGION ketorolac (TORADOL) injection 60 mg methylPREDNISolone acetate (DEPO-Medrol) injection 40 mg cyclobenzaprine (FLEXERIL) 5 MG tablet XR SHOULDER LT MIN 2V methylPREDNISolone, YARON, (MEDROL DOSEPAK) 4 MG tablet 1. Acute pain of left shoulder - ketorolac (TORADOL) injection 60 mg - methylPREDNISolone acetate (DEPO-Medrol) injection 40 mg - cyclobenzaprine (FLEXERIL) 5 MG tablet; Take 1 tablet (5 mg total) by mouth nightly as needed forMuscle Spasms. Dispense: 20 tablet; Refill: 0 - XR SHOULDER LT MIN 2V; Future - methylPREDNISolone, YARON, (MEDROL DOSEPAK) 4 MG tablet; 6 TABLETS ON DAY ONE, 5 TABLETS DAY TWO, 4TABLETS DAY THREE, 3 TABLETS DAY FOUR, 2 TABLETS DAY FIVE, AND 1 TABLET DAY SIX Dispense: 1 each; Refill: 0 -Follow-up sooner if worsening symptoms. Counseling given: Yes Tobacco comments: counseled by Dr Rosenberg I personally spent a total of 30 minutes on the day of the encounter. This includes hjns-ma-puec and [id number]-face time I provided on the day of the encounter & excludes time spent performing separately reportable services. Side effects and less common but more severe adverse effects of recommended medical therapies were explained to the patient. Follow up office visit in 2 months for depression, anxiety and folliculitis. Requested MyChart or telephone follow up prn if symptoms change, worsen, or persist, or if side effect of treatment is experienced. DRAGON: This dictation was at least in part performed using D square nv and there may be some inherent flaws in this system dispatcher due to the nature of this program. Pankaj Rosenberg MD Internal Medicine [facility]. documented in this encounter Plan of Treatment Upcoming Encounters Date Type Department Care Team (Late st Contact Info) Description 05/15/2024 3:30 PM BACK UP SCAN COORDINATOR Appointment [facility] [place] [address] Pankaj Rosenberg MD [address] [place] [address] 05/25/2024 12:45 PM BACK UP SCAN COORDINATOR Office Visit [facility] Physical Therapy [address] [place] [address] Pankaj Rosenberg MD [address] [place] [address] Maya Magaña, [place] [address] 05/30/2024 3:40 PM BACK UP SCAN COORDINATOR Office Visit [facility] Multispecialty [facility] - [address] [place] [address] [address] [place] [address] Pankaj Rosenberg MD [address] [address] 06/20/2024 3:40 PM BACK UP SCAN COORDINATOR [facility] [place] [address] [address] [place] [address] Pankaj Rosenberg MD [address] [address] 06/21/2024 1:00 PM BACK UP SCAN COORDINATOR Office Visit [facility] - [place] [address] [place] [address] Jose Ratliff MD [address] [address] [place] [address] 03/27/2025 1:00 PM BACK UP SCAN COORDINATOR Office Visit [facility] Multispecialty [facility] [address] [facility] [address] [place] [address] Bob Oneal MD [address] [facility] [address] [place] [address] documented as of this encounter Results * XR SHOULDER LT MIN 2V (02/15/2024 9:10 AM CDT) Anatomical Region Laterality Modality Shoulder Radiographic Merissa ging 02/15/2024 9:30 AM CDT Narrative 02/15/2024 10:49 AM CDT [facility] Internal [address] ??[address] ??[address] EXAMINATION: XR left shoulder HISTORY: Left shoulder [...] Procedure Note Benjamin Pearce DO - 02/15/2024 [facility] Internal [address] [address] EXAMINATION: XR left shoulder HISTORY: Left shoulder [...] Pankaj Rosenberg MD GENERAL IMAGING Final Result documented in this encounter Visit Diagnoses Diagnosis Acute pain of left shoulder- Primary documented in this encounter Administered Medications Inactive Administered Medications - up to 3 most recent administrations Medication Order MAR Action Action Date Dose Rate Site ketorolac (TORADOL) injection 60 mg 60 mg, Intramuscular, Once, 1 dose, On Tue02/15/24 at 0845Indications:Acute pain of left shoulder Given 02/15/2024 8:32 AM CDT 60 mg L eft Deltoid methylPREDNISolone acetate (DEPO-Medrol) injection 40 mg 40 mg, Intramuscular, Once, 1 dose, On Tue02/15/24 at 0845, Shake WellIndications:Acute pain of left shoulder Given 02/15/2024 8:32 AM CDT 40 mg L eft Deltoid documented in this encounter Additional Health Concerns Assessment Noted Time PHQ-9 Depression Total Score: 5 02/15/20 24 8:25 AM CDT documented as of this encounter Care Teams Lap Layer Relationship Specialty Start Date End Date Pankaj Rosenberg MD [address] [facility] [address] [place] [address] PCP - General INTERNAL MEDICINE 06/15/21 documented as of this encounter
--- OUTSIDE RECORDS SUMMARY | 2024-05-13 10:43 | XMS_ITS | Encounter Summary ---
Author Organization [facility] Address [address] [place] [address]. [place], [place] [id number] [place] [address] Care Team Providers Care Data Operations Director Name Role Phone Pankaj Rosenberg MD Primary Care Provider [phone] Reason for Visit * Reason Onset Date Comments Information 04/30/2024 Encounter Details Date Type Department Care Team (Late st Contact Info) Description 04/30/2024 Telephone [facility] Multispecialty Care - [place] [address] [address] [place] [address] Pankaj Rosenberg MD [address] [place] [address] [address] [place] [address] Information Social History Tobacco Use Types Packs/Day Years [...] on file Legal Sex Male 2:58 PM ROLL TABLE OPERATOR Gender Identity Male 07/13/2021 5:19 AM ROLL TABLE OPERATOR Sexual Orientation Straight 07/13/2021 5: 19 AM ROLL TABLE OPERATOR documented as of this encounter Progress Notes * Artur Cruz - 04/30/2024 3:31 PM CST Pt called today and canceled his appt had a sick child at home, he is wanting an MRI for his left shoulder. I changed appt to a Virtual Appt for today. TABLE OPERATOR documented in this encounter Plan of Treatment Upcoming Encounters Date Type Department Care Team (Late st Contact Info) Description 05/15/2024 3:30 PM ROLL TABLE OPERATOR Appointment [facility] [place] [address] Pankaj Rosenberg MD [address] [place] [address] 05/25/2024 12:45 PM ROLL TABLE OPERATOR Office Visit [facility] Physical Therapy [address] [place] [address] Pankaj Rosenberg MD [address] [place] [address] Maya Magaña, [place] [address] 05/30/2024 3:40 PM ROLL TABLE OPERATOR [facility] [place] [address] [address] [place] [address] Pankaj Rosenberg MD [facility] [address] 06/20/2024 3:40 PM ROLL TABLE OPERATOR [facility] [address] [place] [address] Pankaj Rosenberg MD [address] [place] [address] 06/21/2024 1:00 PM ROLL TABLE OPERATOR Office Visit [facility] Orthopedic & Sports Medicine - [address] [place] [address] Jose Ratliff MD [address] [address] [place] [address] 03/27/2025 1:00 PM ROLL TABLE OPERATOR Office Visit [facility] Multispecialty Care - [facility] [address] [facility] [address] [place] [address] Bob Oneal MD [address] [facility] [address] [place] [address] documented as of this encounter Visit Diagnoses Not on filedocumented in this encounter Additional Health Concerns Assessment Noted Time PHQ-9 Depression Total Score: 5 02/15/20 24 8:25 AM CDT documented as of this encounter Care Teams Data Operations Director Relationship Specialty Start Date End Date Pankaj Rosenberg MD [address] [facility] [address] [place] [address] PCP - General INTERNAL MEDICINE 06/15/21 documented as of this encounter
--- OUTSIDE RECORDS SUMMARY | 2024-05-13 10:43 | XMS_ITS | Encounter Summary ---
Author Organization [facility] Address [address] [place] [address] Care Team Providers Care Bin Piler Name Role Phone Maria Alejandra Benjamin MD Primary Care Provider [phone] Reason for Visit * Auth/Cert Specialty Diagnoses / Procedures Referred By Horacio t Referred To Contact Diagnoses Small Bowel Obstruction Referral ID Status Reason Start Date Expiration Date Visits Re quested Visits Authorized [id number] 1 1 Encounter Details Date Type Department Care Team (Late st Contact Info) Description 09/17/2021 10:05 AM CDT Anesthesia Event [facility] [address] [place] [id number] Darryl Samano MD [address] [facility] [place] [address] Gene Rangel DO [address] [place] [id number] Anesthesia Record Procedure Summary Procedure Name Responsible Anesthesiologist Anesthesia Start Time Anesthesia Stop Time LAPAROTOMY EXPLORATORY, BOWEL RESECTION, ENTROLYSIS Darryl Samano MD 09/17/21 1005 09/17/21 1217 Events Date Time Event Comment 09/17/2021 0924 1005 An Start 1005 Pt In Room 1005 An Start Data 1012 Anes Timeout 1012 PT Reassessment 1012 Induction 1016 An Intubation 1026 PIV Placement 1032 Insert Art Line 1034 Anes Ready 1048 Time Out Anesthesia part icipated in timeout at the time documented in the record by nursing 1049 Proc Start 1205 Proc Stop 1205 An Emergence 1211 Extubation 1214 an stop data 1214 Pt out of Room 1214 ANPTO2 1217 An Stop Meds Name Total fentaNYL 100 mcg/2ml injection 200 mcg propofol 200mg/20mL injection 150 mg succinylcholine 20 mg/mL injection 160 m g rocuronium 50 mg/5 mL injection 80 mg phenylephrine 100 mcg/mL syringe 100 mcg dexamethasone 10 mg/ml PF injection 4 mg famotidine 20 mg/2mL injection 20 mg ondansetron 4mg/2mL injection 4 mg hydromorphone 2 mg/10mL prefilled syring e 1.4 mg sugammadex 200 mg/2mL injection 400 mg midazolam (VERSED) injection 2 mg lidocaine (XYLOCAINE) 1 % injection 11 m L meropenem (Merrem) 1 g injection 1 g LR (Lactated ringers) 700 mL Isolyte-S infusion 700 mL albumin 5% 500 mL * Agents Name Insp. N2O Exp. Sevoflurane Exp. N2O O2 Air Insp. Sevoflurane N2O * Blood No blood administrations on file. Lines, Drains, and Airways Type Details Placement Removal Gastric Tube 09/15/21; 1500; NGT; Nostril/Nare; 09/19/21; 0850 09/15/21 1500 by Chidi Sanchez RN 09/19/21 0850 by Steffany Sunshine RN Peripheral IV Date: 09/15/21; Time : 2024; Orientation: Anterior, Left; Placed By: Carmen Ahumada RN; Tolerance: Well 09/15/212024 by Zita Solorio V. BUILDING CUSTODIAN-CHEMICAL STRENGTH TESTER 09/17/21 1730 by Sonia Payne RN Epidural Date: 09/17/21; Time : 0800 09/17/21 0800 by Jeannette Ochoa APRN-FELI 09/18/21 0830 by Maeve Guardado RN Urethral Catheter 09/17/21; 1000 (in O R); General Anesthesia; 09/18/21; 1302; Per order; cmiller 09/17/21 1000 by Jeannette Ochoa APRN-CHEMICAL STRENGTH TESTER 09/18/21 1302 by Maeve Guardado RN ETT Date: 09/17/21; Time : 1016; Placed By: Darryl Samano MD; Vent: mask not attempted; Induction: Rapid Sequence; Blade Type: Video; Blade Size: 4; Laryngoscopy View: Grade 1 (full cords); Intubation Adjuncts: Stylet; Tube: Endotracheal Tube; Placement: Oral; Tube Type: Cuffed-inflated; Tube Size(mm): 8 MM; Depth of Insertion: 23 CM; Measured From: lips; Attempts: 2; Cuff Infated: Air; Verified By: Direct visualization, Bilateral breath sounds, Chest Auscultation, CO2 Monitor 09/17/21 1016 by Gene Rangel, DO 09/17/21 1211 by London Christine DO Peripheral IV Date: 09/17/21; Time : 1021; Orientation: Right; Tolerance: General Anesthesia 09/17/21 1021 by Gene Rangel, DO 09/21/21 0115 by Parisa Soares RN Arterial Line Date: 09/17/21; Time : 1032; Placed By: Darryl Samano MD; Location: radial; Orientation: Left; Gauge: 20; Line Secured: Taped; Tolerance: General Anesthesia 09/17/21 1032 by Gene Rangel, DO 09/17/21 1245 by Jeannette Ochoa APRN-CNP Procedural Site (Incision) 09/17/21; 1135; Abdomen; [place], island dressing; 09/22/21; 1550 09/17/21 1135 by Bertha Sanford, BRYANT 09/22/21 1550 by Generic, Auto Release documented in this [...] as of this encounter Progress Notes * Sejal Motley MD - 09/18/2021 10:27 AM CDT ANESTHESIA POSTOP EVALUATION NOTE Procedure: LAPAROTOMY EXPLORATORY, BOWEL RESECTION, ENTROLYSIS (N/A ) Chuck Barlow is a 26 year old male Patient Vitals for the past 6 hrs: BP Temp Pulse Resp SpO2 09/18/21 0435 125/85 98 ??F (36.7 ??C) 95 18 96 % 09/18/21 0755 140/88 98 ??F (36.7 ??C) 92 18 97 % Anesthesia Type: general ETT Pre-op Diagnosis Codes: * Small bowel obstruction [K56.609] Mental Status: awake, alert, oriented, neurologic status has returned to preoperative level and sufficiently recovered from acute administration of anesthesia to participate in the evaluation Neuro Status: No numbness, tingling or visual disturbances Respiratory Function: natural and supported (NC) Cardiac Function: stable Postop Pain: adequate (epidural not covering incisions, 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 Sejal Motley MD Anesthesia PGY-2 09/18/21 10:28 AM Associated attestation - Darryl Samano MD - 09/19/2021 1:09 AM CDT Patient seen and evaluated by resident. Darryl Samano MD * Darryl Samano MD - 09/17/2021 12:57 PM CDT ANESTHESIA POSTOP EVALUATION NOTE Procedure: LAPAROTOMY EXPLORATORY, BOWEL RESECTION, ENTROLYSIS (N/A ) Chuck Barlow is a 26 year old male Patient Vitals for the past 6 hrs: BP Temp Pulse Resp SpO2 Pain Rating Score #1 Pain Scale/Observation Pulse - (SPO2/Cuff) 09/17/21 0725 -- -- -- -- -- 7 N -- 09/17/21 0808 -- -- -- -- -- 8 N -- 09/17/21 0928 119/91 -- (!) 112 16 -- -- -- -- 09/17/21 0929 -- -- -- -- -- 0 N -- 09/17/21 0930 126/84 98.3 ??F (36.8 ??C) (!) 113 18 97 % -- -- -- 09/17/21 0944 134/86 -- (!) 130 20 95 % -- -- 131 bpm 09/17/21 0949 133/74 -- (!) 131 22 94 % -- -- 132 bpm 09/17/21 0953 108/81 -- (!) 135 12 95 % -- -- 135 bpm 09/17/21 1220 (!) 167/111 97.3 ??F (36.3 ??C) 104 13 99 % -- B -- 09/17/21 1225 (!) 165/103 -- 105 12 100 % -- -- -- 09/17/21 1230 164/96 -- 109 16 99 % -- -- -- 09/17/21 1235 161/95 -- (!) 114 15 99 % -- -- -- 09/17/21 1240 154/98 -- (!) 113 15 100 % -- -- -- 09/17/21 1245 -- -- (!) 116 23 95 % -- -- -- 09/17/21 1250 150/86 -- (!) 113 27 96 % -- -- -- 09/17/21 1255 -- -- (!) 112 22 97 % -- -- -- Anesthesia Type: general ETT Pre-op Diagnosis Codes: * Small bowel obstruction [K56.609] Mental Status: awake, alert, oriented and sufficiently recovered from acute administration of anesthesia to participate in the evaluation Neuro Status: No numbness, tingling or visual disturbances Respiratory Function: natural Postop Pain: adequate Postop Hydration: adequate Postop Nausea: none Assessment: no apparent anesthetic complications, patient tolerated procedure well and no evidence of recall Patient Disposition: Follow Up Needed COMPLICATIONS: No complications documented. * Darryl Samano MD - 09/17/2021 9:18 AM CDT ANESTHESIA PREOPERATIVE EVALUATION NOTE Procedure: LAPAROTOMY EXPLORATORY (N/A ) Vitals: Patient Vitals for the past 6 hrs: BP Temp Pulse Resp SpO2 Pain Rating Score #1 09/17/21 0808 -- -- -- -- -- 8 09/17/21 0430 115/73 97.8 ??F (36.6 ??C) 78 18 97 % -- ANESTHESIA PRE-EVALUATION NOTE History of Present Illness: 26yo with SBO here for a exploratory laparotomy under GA. PMH significant HTN, HLD, DM2, GERD, gastroschisis, and two small bowel resections for SBO prior tothe age of 4 who presented as a transfer from OSH for evaluation of small bowel obstruction. The patient is a current non-smoker. Physical Exam: Orientation X3 Airway/Mallampati Score: III Mouth Opening Distance: 2.5 fingerwidths Neck ROM: full TM Distance: > 3 FB Teeth: normal Heart: normal - S1 S2 Lungs: clear to ausculation bilaterally Abdomen Exam: obese and soft Review of Systems: History of anesthetic complications: No Sleep Apnea Risk: Yes GERD: Yes Poor Exercise Tolerance: No Recent Chest Pain: No Shortness of Breath: No AICD/Pacemaker: No Renal Disease: No Diagnostic Tests: Lab(s) reviewed: Yes. ANESTHESIA PLAN ASA Score: 3 NPO Status: No solids since midnight, No liquids within 2 hours and No solids for 8 hours Anesthesia Plan: general ETT Planned Induction: intravenous Planned Adjuncts: art line Planned Postop Destination: PACU Anesthetic plan was discussed with: patient Anesthetic Plan discussion was: Consented Use of blood products were discussed with: patient Use of blood product discussion was: Consented The patient's procedural Anesthetic Plan was discussed with the resident. Overall additional findings/comments: The patient was interviewed and examined in the preoperative area. Risks associated with the GETA (dental injury, sore throat, nausea/vomiting, need for prolonged ventilatory support, post op ICU Monitoring, ME, stroke and ) discussed with patient. Patientvoiced his understanding and agrees to proceed with the above anesthetic plan.. BMI, Height, Weight Tobacco History Estimated body mass index is 36.28 kg/m?? as calculated from the following: Height as of this encounter: 1.803 m (5' 11 ). Weight as of this encounter: 118 kg (260 lb 2.3 oz). Social History Tobacco Use Smoking Status Never Smoker Smokeless Tobacco Former User ??? Types: Chew ??? Quit date: 09/15/2020 Alcohol History Drug History Social History Substance and Sexual Activity Alcohol Use None Social History Substance and Sexual Activity Drug Use Not on file Outpatient Medications: Inpatient Medications: Outpatient Medications Marked as Taking for the 09/15/21 encounter (Hospital Encounter) Medication Sig Last Dose ??? Alcohol Prep USE 1 SWAB TO CLEAN SKIN TWICE DAILY BEFORE TESTING ??? amLODIPine Take 10 mg by mouth once daily ??? OneTouch Verio USE 1 STRIP TO CHECK BLOOD SUGAR TWICE DAILY Reasons: FOR DIABETES EDUCATION ??? OneTouch Verio Reflect Use 1 Units 2 times daily USE MACHINE TO CHECK BLOOD SUGAR TWICE DAILY ??? ONETOUCH DELICA PLUS 33G EXTRA FINE LANCET USE 1 LANCET TO PRICK FINGER TWICE DAILY BEFORE TESTING ??? lisinopril Take 20 mg by mouth once daily ??? lisinopril Take 40 mg by mouth once daily ??? loratadine Take 10 mg by mouth once daily as needed ??? montelukast Take 10 mg by mouth at bedtime ??? omeprazole Take 40 mg by mouth once daily ??? pravastatin Take 1 tablet by mouth every evening ??? SITagliptin Take 25 mg by mouth once daily Current Facility-Administered Medications Medication Dose Last Admin ??? 0.9% NaCl 3 mL And ??? 0.9% NaCl 1-10 mL ??? bisacodyl 10 mg ??? dextrose IV for hypoglycemia 12.5 g Or ??? dextrose IV for hypoglycemia 25 g ??? dextrose 5 % and 0.45 % NaCl with KCl 20 mEq New Bag at 09/16/21 1125 ??? enoxaparin 40 mg 40 mg at 09/17/21 0807 ??? famotidine 20 mg 20 mg at 09/17/21 0808 ??? glucagon 1 mg ??? glucose (Diabetic Use) ??? glucose (Diabetic Use) gel ??? glucose chew tab 16 g ??? hydrALAZINE 10 mg ??? HYDROmorphone 0.1 mg Or ??? HYDROmorphone 0.2 mg 0.2 mg at 09/17/21 0808 ??? insulin aspart 0-6 Units ??? iopamidol 200 mL at 09/16/21 1451 ??? iopamidol 100 mL at 09/15/21 2032 ??? ketorolac 30 mg 30 mg at 09/17/21 0308 ??? labetalol 10 mg ??? lactated ringers New Bag at 09/16/21 0845 ??? lidocaine viscous 5 mL 5 mL at 09/16/21 1119 ??? montelukast 10 mg 10 mg at 09/16/212000 ??? ondansetron 4 mg 4 mg at 09/16/212000 ??? pravastatin 40 mg 40 mg at 09/16/212000 ??? prochlorperazine 10 mg 10 mg at 09/17/21 0808 ??? throat lozenge 1 lozenge Allergies: No Known Allergies Relevant Problems No relevant active problems Problem List: Patient Active Problem List Diagnosis Date Noted ??? History of gastroschisis 09/16/2021 Priority: Not Prioritized ??? Small bowel obstruction 09/14/2021 Priority: Not Prioritized ??? KARRIE (obstructive sleep apnea) 09/12/2021 Priority: Not Prioritized ??? Pure hypercholesterolemia 09/12/2021 Priority: Not Prioritized ??? Gastroesophageal reflux disease without esophagitis 07/13/2021 Priority: Not Prioritized ??? Controlled type 2 diabetes mellitus without complication, without long-term current use of insulin 06/16/2021 Priority: Not Prioritized ??? Arthrogryposis 06/15/2021 [...] gently Restart Allergy medications once cleared by Brush Maker Machine PROCEDURE PERFORMED: Septoplasty Submucosal Reduction of Inferior Turbinates bilaterally Last Assessment & Plan: Continue nasal saline 2-3 times per day May blow nose gently Restart Allergy medications once cleared by Brush Maker Machine PROCEDURE PERFORMED: Septoplasty Submucosal Reduction of Inferior [...] surgery. Added automatically from request for surgery [id number] ??? Allergic rhinitis 10/22/2019 Priority: Not Prioritized Last Assessment & Plan: Continue nasal saline 2-3 times per day May blow nose gently Restart Allergy medications once cleared by Brush Maker Machine Last Assessment & Plan: Continue nasal saline 2-3 times per day May blow nose gently Restart Allergy medications once cleared by Brush Maker Machine ??? Elbow problem 09/10/2013 Priority: Not Prioritized ??? Insomnia 09/10/2013 Priority: Not Prioritized Medical History: Past Medical History: Diagnosis Date ??? Arthrogryposis 06/15/2021 ??? Controlled type 2 diabetes mellitus without complication, without long-term current use of insulin 06/16/2021 ??? 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 KARRIE (obstructive sleep apnea) 09/12/2021 Surgical History: No past surgical history on file. Covid Vaccine: Lab Results: Recent Labs Base Name 09/17/21 0807 [id number] 141* SPECIMENTYPE Arterial Recent Labs Component Name 09/17/21227 WBC 13.8* RBC 5.14 HCT 43.1 HGB 14.5 PLTCOUNT 413* MCV 83.9 MCH 28.2 MCHC 33.6 MPV 9.7 Recent Labs Component Name 09/17/21227 POTASSIUM 3.9 CALCIUM 10.1 CO2 20* GLUCOSE 128* BUN 16 CREATININE 0.91 Recent Labs Component Name 09/17/21227 MAGNESIUM 2.5 Recent Labs Component Name 09/17/21 0228 PHOS 4.5 No results found for requested labs within last 120 days. Recent Labs Result Component Current Result Alkaline Phosphatase 80 (09/15/2021) ALT 47 (09/15/2021) Anion Gap 19 (H) (09/17/2021) AST 22 (09/15/2021) eGFR by CKD-EPI >90 (09/17/2021) documented in this encounter Procedure Notes * Gene Rangel DO - 09/17/2021 10:51 AM CDTAssociated Order(s): Arterial Line Placement Arterial Line Placement Procedure Note Patient Location: OR. Procedure: Arterial Line ([id number]). Procedure Section Indications: continuous blood pressure monitoring. Skin Prep: Chloraprep. Orientation: Left. Site: radial. Site Identification: ultrasound guided with sterile sleeve and gel. Sterile Technique: cap and mask. Gauge: 20. Catheter Length: 1 and 3/4 inch. Catheter Type: Arrow. Number of Attempts: 2. Line Secured with: tape and Tegaderm. Procedure Tolerance: performed while patient under general anesthesia. Procedure Start Time: 09/17/2021 10:32 AM. Staff Section Anesthesia Provider: Darryl Samano MD Provider #1: Gene Rangel DO, Performed the procedure. * Gene Rangel DO - 09/17/2021 10:49 AM CDTAssociated Order(s): ETT Placement Endotracheal Tube Placement: Patient Location: OR. Intubation Event Date/Time: 09/17/2021 10:16 AM Procedure: intubation ([id number]). Procedure Section: Sedation: under general anesthesia. Indications for Airway Management: anesthesia Induction: rapid sequence Patient Position: sniffing and supine Mask Ventilation: not attempted. Blade [...] auscultation and CO2 monitor Tube secured with: adhesive tape. Difficult Airway? No. Procedure Start Time: 09/17/2021 10:16 AM. Staff Section Anesthesia Provider: Darryl Samano MD Provider #1: Gene Rangel DO Performed the procedure. * Nicole Suárez MD - 09/17/2021 9:55 AM CDTAssociated Order(s): Neuraxial Block Neuraxial Block Note Pre-Procedure: Procedure Name: Neuraxial Block Patient Location: Pre-op Referred By: surgeon. Indications: at surgeon's request Pre-Anesthetic Checklist: Patient identified, IV Checked, Risks and benefits discussed, Surgical consent verified, Monitors and equipment, Site examined, Pre-op evaluation done, Time-out performed, Informed consent obtained, Questions answered/anesthesia questions answered and Allergies reviewed Anticoagulation/ Anti-thrombosis status confirmed? Yes Supplemental O2: nasal cannula Monitors: BP, continuous pluse ox, EKG and End tidal CO2 Patient Condition: awake Patient Sedated? Yes Sedation Type: mild Sedation Agents: midazolam (VERSED) injection - Intravenous 2 mg - 09/17/2021 9:35:00 AM Procedure: Block Type: Epidural Prep: Chloraprep Sterile Field: mask, cap/hat, sterile established and sterile gloves Approach: midline Skin was localized? Yes Skin localized with: lidocaine (XYLOCAINE) 1 % injection - Infiltration 1 mL - 09/17/2021 4:56:00 AM Epidural Block: Is this procedure for postop pain? Yes Reason: anticipated postoperative pain Needle Type: Tuohy Needle gauge: 18 G Placement Site: Thoracic (T12-L1) Number of Attempts: 1 Loss of Resistance: 8 saline Catheter threaded to (cm): 6 Catheter length at skin (cm): 14 CSF Aspirated from catheter: No Blood Aspirated: No Test Dose: lidocaine 1.5% with 1-200,000 epinephrine 3 mL at 09/17/2021 9:54 AM Test Dose Response: No Epidural Local Anesthetic Used? No Degree of difficulty: none Procedure Tolerance: tolerated well Sensory Level: T9 Motor Blockade: No Position post procedure: head of bed elevated 30 degrees Start Time: 09/17/2021 7:40 PM End Time: 09/17/2021 7:58 PM Total Time: 18 Staff: Anesthesia Provider: Nicole Suárez MD Provider #1: Alexsandra Ingram DO - performed the procedure Additional Notes: Procedure performed for postoperative pain relief after abdominal surgery. I was present and supervised throughout the procedure. Nicole Suárez MD documented in this encounter Miscellaneous Notes * Addendum Note - Darryl Samaon MD - 10/05/2021 1:14 PM CDT Addendum created 10/05/21 1314 by Darryl Samano MD Cosign clinical note * Addendum Note - Sejal Motley MD - 09/18/2021 10:28 AM CDT Addendum created 09/18/21 1028 by eSjal Motley MD Clinical Note Signed * Anesthesia Transfer of Care - Zbigniew Beaver DO - 09/17/2021 12:18 PM CDT ANESTHESIA TRANSFER OF CARE NOTE Today's Date: 09/17/2021 Date of : 1995 Patient: Chuck Barlow Procedure(s): LAPAROTOMY EXPLORATORY, BOWEL RESECTION, ENTROLYSIS Surgeon(s): Primary: Cindi Cesar MD Resident - Assisting: Maria A Serna MD Preop Diagnosis: Pre-op Diagnois: * Small bowel obstruction [K56.609] Pre-op Meds (From admission, onward) Start Stop Status Route Frequency Ordered 09/17/21 1015 *Hold/Avoid Anticoagulants and Antiplatelet agents -- Verified OTHER EVERY 12 HOURS (08 and 20) 09/17/21 1013 09/17/21 1015 *Hold/Avoid Medication -- Verified OTHER EVERY 12 HOURS (08 and 20) 09/17/21 1013 09/15/21 1747 0.9% NaCl injection 1-10 mL And Linked Group Details -- Dispensed IK PRN 09/15/21 1754 09/15/21 2200 0.9% NaCl injection 3 mL And Linked Group Details -- Dispensed IK EVERY 8 HOURS 09/15/21 1754 09/16/21 1051 bisacodyl (Dulcolax) suppository 10 mg -- Verified RE EVERY 8 HOURS PRN 09/16/21 1056 09/15/21 2157 dextrose 10 % IV bolus Or Linked Group Details -- Verified IV PRN 09/15/21 2158 09/15/21 2157 dextrose 10 % IV bolus Or Linked Group Details -- Verified IV PRN 09/15/21 2158 09/16/21 1130 dextrose 5 % and 0.45 % NaCl with KCl 20 mEq infusion -- Dispensed IV CONTINUOUS 09/16/21 1056 09/15/21 1830 enoxaparin (Lovenox) injection 40 mg -- Dispensed SC DAILY 09/15/21175309/15/212099 famotidine (Pepcid) injection 20 mg -- Dispensed IV 2 TIMES DAILY 09/15/21175309/15/212156 glucagon (Glucagen) injection 1 mg -- Verified IM PRN 09/15/21215709/15/212156 glucose (Diabetic Use) (Dex4 Glucose) oral liquid -- Verified PO PRN 09/15/21215709/15/212156 glucose (Diabetic Use) oral gel -- Verified PO PRN 09/15/21 2158 09/15/212156 glucose chew tablet 4 tablet -- Verified PO PRN 09/15/21215709/15/211749 hydrALAZINE (Apresoline) injection 10 mg -- Verified IV EVERY 4 HOURS PRN 09/15/21175309/17/21 1100 HYDROmorphone (Dilaudid) 10 mcg/mL, bupivacaine PF (Marcaine PF) 0.0625 % in 0.9% NaCl IV epidural infusion 09/22 1059 Dispensed EP CONTINUOUS 09/17/21 1013 09/15/212056 HYDROmorphone (Dilaudid) injection 0.1 mg Or Linked Group Details -- Verified IV EVERY 2 HOURS PRN 09/15/21205609/15/212056 HYDROmorphone (Dilaudid) injection 0.2 mg Or Linked Group Details -- Dispensed IV EVERY 2 HOURS PRN 09/15/21205609/16/21 0000 insulin lispro (HumaLOG;ADMelog) 100 UNIT/ML pen 0-6 Units -- Dispensed SC EVERY 4 HOURS 09/15/21215709/16/211450 iopamidol (Isovue 300) 61 % contrast 09/18 1449 Verified IV CONTRAST ONCE 09/16/21 1451 09/15/212002 iopamidol (Isovue 370) 76 % contrast 09/17 2001 Dispensed IV CONTRAST ONCE 09/15/21200209/16/21 115 ketorolac (Toradol) injection 30 mg 09/21 115 Dispensed IV EVERY 6 HOURS PRN 09/16/21 1155 09/15/21 175 labetalol (Normodyne; Trandate) injection 10 mg -- Verified IV EVERY 4 HOURS PRN 09/15/21 1754 09/15/21 1830 lactated ringers infusion -- Dispensed IV CONTINUOUS 09/15/21 1754 09/17/21 0456 lidocaine (Xylocaine) 1 % injection 09/17 101 Completed INFILTRATION 09/17/21 1001 09/16/21 0952 lidocaine viscous (Xylocaine) 2 % solution 5 mL -- Dispensed MT 3 TIMES DAILY PRN 09/16/21 0953 09/17/21 0935 midazolam (Versed) injection 09/17 934 Completed IV 09/17/21 1001 09/15/21 223 montelukast (Singulair) tablet 10 mg Note to Pharmacy: OP sig: Take 10 mg by mouth at bedtime -- Dispensed PO AT BEDTIME 09/15/21 21509/17/21 1010 naloxone (Narcan) injection 0.2 mg -- Verified IV PRN 09/17/21 1013 09/16/21 1051 ondansetron (Zofran) injection 4 mg -- Dispensed IV EVERY 6 HOURS PRN 09/16/21 1056 09/15/21 2315 pravastatin (Pravachol) tablet 40 mg -- Dispensed PO AT BEDTIME 09/15/21 2241 09/17/21 0055 prochlorperazine (Compazine) injection 10 mg -- Dispensed IV EVERY 6 HOURS PRN 09/17/21 0055 09/16/21 0603 throat lozenge 1 lozenge -- Dispensed PO EVERY 2 HOURS PRN 09/16/21 0603 Post-op Diagnosis: * Small bowel obstruction [K56.609] . No Known Allergies Vitals: Patient Vitals for the past 3 hrs: BP Temp Pulse Resp SpO2 Pain Rating Score #1 09/17/21 0953 108/81 -- (!) 135 12 95 % -- 09/17/21 0949 133/74 -- (!) 131 22 94 % -- 09/17/21 0944 134/86 -- (!) 130 20 95 % -- 09/17/21 0930 126/84 98.3 ??F (36.8 ??C) (!) 113 18 97 % -- 09/17/21 0929 -- -- -- -- -- 0 05/05/22 0928 119/91 -- (!) 112 16 -- -- Lines, Drains, and Airways Type Details Placement Removal Gastric Tube 09/15/21; 1500; Nostril/Nare 09/15/21 1500 by Chidi Sanchez RN Peripheral IV Date: 09/15/21; Time: 2024; Orientation: Anterior, Left; Location: Forearm; Placed By: Carmen Ahumada RN; Gauge: 20 Gauge; Locals: Trans Dermal; Tolerance: Well 09/15/212024 by Zita Morales RN ETT Date: 09/17/21; Time: 1015; Placed By: Darryl Samano MD; Vent: mask not attempted; Induction: Rapid Sequence; Blade Type: Video; Blade Size: 4; Laryngoscopy View: Grade 1 (full cords); Intubation Adjuncts: Stylet; Tube: Endotracheal Tube; Placement: Oral; Tube Type: Cuffed-inflated; TubeSize(mm): 8 MM; Depth of Insertion: 23 CM; Measured From: lips; Attempts: 2; Cuff Infated: Air; Verified By: Direct visualization, Bilateral breath sounds, Chest Auscultation, CO2 Monitor 09/17/21 1016 by Gene Rangel DO 09/17/21 1211 by [place] Christine DO Peripheral IV Date: 09/17/21; Time: 102; Orientation: Right; Location: Hand; Gauge: 16 Gauge; Tolerance: General Anesthesia 09/17/21 1021 by Gene Rangel DO Arterial Line Date: 09/17/21; Time: 1032; Placed By: Darryl Samano MD; Location: radial; Orientation: Left; Gauge: 20; Line Secured: Taped; Tolerance: General Anesthesia 09/17/21 1032 by Gene Rangel DO Intraprocedure I/O Totals Intake Isolyte-S infusion 500.00 mL LR (Lactated ringers) 500.00 mL albumin 5% 500.00 mL Total Intake 1500 mL Patient Transfer Location: PACU Transport Airway: [...] understanding of report from the receiving PACUteam. Zbigniew Beaver DO documented in this encounter Plan of Treatment Not on file documented as of this encounter Procedures Procedure Name Priority Date/Time Associated Diagnosis Comments ARTERIAL LINE NOTE Routine 09/17/2021 10 :51 AM CDT ENDOTRACHEAL TUBE NOTE Routine 09/17/2021 10:49 AM CDT NEURAXIAL BLOCK Routine 09/17/2021 9:55 AM CDT documented in this encounter Results * ARTERIAL LINE PERFORMABLE (09/17/2021 10:51 AM CDT) Narrative Darryl Samano MD - 09/17/2021 10:51 AM CDT Gene Rangel DO ? 09/17/2021 10:51 AM Arterial Line Placement Procedure Note Patient Location: OR. Procedure: Arterial Line ([id number]). Procedure Section ?? Indications: continuous blood pressure [...] Event Date/Time: ??09/17/2021 10:16 AM Procedure: intubation ([id number]). Procedure Section: ?? Sedation: under general anesthesia. [...] MD Nicole Suárez MD GENERAL ANESTHESIA O RDERABLES documented in this encounter Visit Diagnoses Not on filedocumented in this encounter Administered Medications Inactive Administered Medications - up to 3 most recent administrations Medication Order MAR Action Action Date Dose Rate Site albumin human 5 % infusion Intravenous, CONTINUOUS PRN, Starting on Avani 09/17/21 at 1140, Until Avani 09/17/21 at 1217, Anesthesia Intra-op $ New Bag/Syringe 09/17/2021 11:40 AM CDT dexAMETHasone Sod Phosphate PF injection Intravenous, PRN, Starting on Avani 09/17/21 at 1121, Until Avani 09/17/21 at 1217, Anesthesia Intra-op $ Given 09/17/2021 11:21 AM CDT 4 mg famotidine (Pepcid) injection Intravenous, PRN, Starting on Avani 09/17/21 at 1121, Until Avani 09/17/21 at 1217, Anesthesia Intra-op $ Given 09/17/2021 11:21 AM CDT 20 mg fentaNYL (PF) (Sublimaze) injection Intravenous, PRN, Starting on Avani 09/17/21 at 1015, Until Avani 09/17/21 at 1217, Anesthesia Intra-op $ Given 09/17/2021 11:01 AM CDT 50 mcg $ Given 09/17/2021 10:48 AM CDT 50 mcg $ Given 09/17/2021 10:15 AM CDT 100 mcg HYDROmorphone HCl-NaCl 2-0.9 MG/10ML-% SOSY Intravenous, PRN, Starting on Avani 09/17/21 at 1146, Until Avani 09/17/21 at 1217, Anesthesia Intra-op $ Given 09/17/2021 12:24 PM CDT 0.4 mg $ Given 09/17/2021 12:19 PM CDT 0.2 mg $ Given 09/17/2021 12:14 PM CDT 0.4 mg isolyte-S pH 7.4 infusion Intravenous, CONTINUOUS PRN, Starting on Avani 09/17/21 at 1005, Until Avani 09/17/21 at 1217, Anesthesia Intra-op $ New Bag/Syringe 09/17/2021 10:05 AM CDT lactated ringers infusion Intravenous, CONTINUOUS PRN, Starting on Avani 09/17/21 at 1005, Until Avani 09/17/21 at 1217, Anesthesia Intra-op $ New Bag/Syringe 09/17/2021 10:05 AM CDT lidocaine (Xylocaine) 1 % injection Infiltration, Starting on Avani 09/17/21 at 0456, Until Avani 09/17/21 at 1015, Anesthesia Intra-op $ Given 09/17/2021 10:15 AM CDT 100 mg $ Given 09/17/2021 4:56 AM CDT 1 mL meropenem (Merrem) injection Intravenous, PRN, Starting on Avani 09/17/21 at 1046, Until Avani 09/17/21 at 1217, Anesthesia Intra-op $ Given 09/17/2021 10:46 AM CDT 1 g midazolam (Versed) injection Intravenous, Starting on Avani 09/17/21 at 0935, Until Avani 09/17/21 at 0935, Anesthesia Intra-op $ Given 09/17/2021 9:35 AM CDT 2 mg ondansetron (Zofran) injection Intravenous, PRN, Starting on Avani 09/17/21 at 1146, Until Avani 09/17/21 at 1217, Anesthesia Intra-op $ Given 09/17/2021 11:46 AM CDT 4 mg phenylephrine 100 mcg/mL injection Intravenous, PRN, Starting on Avani 09/17/21 at 1015, Until Avani 09/17/21 at 1217, Anesthesia Intra-op $ Given 09/17/2021 10:15 AM CDT 100 mcg propofol (Diprivan) injection Intravenous, PRN, Starting on Avani 09/17/21 at 1015, Until Avani 09/17/21 at 1217, Anesthesia Intra-op $ Given 09/17/2021 10:15 AM CDT 150 mg rocuronium (Zemuron) injection Intravenous, PRN, Starting on Avani 09/17/21 at 1028, Until Avani 09/17/21 at 1217, Anesthesia Intra-op $ Given 09/17/2021 11:41 AM CDT 20 mg $ Given 09/17/2021 11:31 AM CDT 10 mg $ Given 09/17/2021 10:44 AM CDT 20 mg succinylcholine (Anectine) injection Intravenous, PRN, Starting on Avani 09/17/21 at 1016, Until Avani 09/17/21 at 1217, Anesthesia Intra-op $ Given 09/17/2021 10:16 AM CDT 160 mg sugammadex (Bridion) injection Intravenous, PRN, Starting on Avani 09/17/21 at 1204, Until Avani 09/17/21 at 1217, Anesthesia Intra-op $ Given 09/17/2021 12:04 PM CDT 400 mg documented in this encounter Care Teams Bin Piler Relationship Specialty Start Date End Date Maria Alejandra Benjamin MD [address] [place] [address] PCP - General Family Medicine Geriatric Medicine 09/16/21 09/20/21 documented as of this encounter
--- OUTSIDE RECORDS SUMMARY | 2024-05-13 10:43 | XMS_ITS | Encounter Summary ---
Author Organization [facility] Address [address] [place] [address]. [place], [place] [address] [place] [id number] Care Team Providers Care Senior Network Systems Engineer Name Role Phone Pankaj Rosenberg MD Primary Care Provider [phone] Reason for Visit * Reason Comments Follow Up Joint injection Encounter Details Date Type Department Care Team (Latest Contact Info) Description 05/01/2024 4:00 PM GLUE MIXER Office Visit [facility] Multispecialty Care - [place] [address] [address] [place] [address] Pankaj Rosenberg MD [address] [place] [address] [address] [place], [place] [id number] Follow Up (Joint injection ) Social History Tobacco Use Types Packs/Day [...] on file Legal Sex Male 2:58 PM GLUE MIXER Gender Identity Male 07/13/2021 5:19 AM GLUE MIXER Sexual Orientation Straight 07/13/2021 5: 19 AM GLUE MIXER documented as of this encounter Last Filed Vital Signs Vital Sign Reading Time Taken Comments Blood Pressure 139/91 05/01/2024 4:30 PM GLUE MIXER Pulse 85 05/01/2024 4:08 PM GLUE MIXER Temperature 36.4 ??C (97.6 ??F) 05/01/2024 4:08 PM CS T Respiratory Rate 18 05/01/2024 4:08 PM GLUE MIXER Oxygen Saturation 97% 05/01/2024 4:08 PM GLUE MIXER Inhaled Oxygen Concentration - - Weight 120.4 kg (265 lb 6.4 oz) 05/01/2024 4:08 PM GLUE MIXER Height 180.3 cm (5' 11 ) 05/01/2024 4:08 PM GLUE MIXER Body Mass Index 37.02 05/01/2024 4:08 PM GLUE MIXER documented in this encounter Progress Notes * Pankaj Rosenberg MD - 05/01/2024 4:00 PM CSTAssociated Order(s): *Joint Aspiration/Injection Post-Procedure Diagnose(s): Chronic left shoulder pain Summary: ACute visit notes Images from the original note were not included. Internal Medicine Outpatient Progress Note CC: Follow Up (Joint injection ) HPI: Chuck Barlow is a 29-year-old male who is an established patient with me presents for follow-up for left shoulder joint injection. Patient with chronic left shoulder joint pain. Seen for an office visit via telemedicine yesterday. Interested in getting shots done and here for injections to be done. Problem List Patient Active Problem List Diagnosis Mixed hyperlipidemia Traumatic brain injury ([facility]) Nonalcoholic steatohepatitis Gallbladder polyp Fracture of spinous process of cervical vertebra ([facility]) Essential hypertension, benign Deviated nasal septum Allergic rhinitis Arthrogryposis Type 2 diabetes mellitus with hyperglycemia, without long-term current use of insulin ([facility]) Gastroesophageal reflux disease without esophagitis Nausea and vomiting, unspecified vomiting type Change in bowel function Epigastric burning sensation KARRIE (obstructive sleep apnea) History of gastroschisis Hypertrophy of nasal turbinates S/P exploratory laparotomy S/P small bowel resection Generalized abdominal pain Rectal bleeding Epigastric pain Constipation, unspecified constipation type SBO (small bowel obstruction) ([facility]) Polyp of gallbladder Hyperlipidemia due to type 2 diabetes mellitus ([facility]) Folliculitis Mild episode of recurrent major depressive disorder ([facility]) Hypertension associated with type 2 diabetes mellitus ([facility]) Past Medical History: Diagnosis Date Allergy Arthrogryposis Diabetes mellitus ([facility]) Hyperlipidemia Hypertension Obstructive sleep apnea Personal history of (corrected) gastroschisis Past Surgical History: Procedure Laterality Date APPENDECTOMY as a baby along with gastroschisis COLONOSCOPY N/A 08/26/2021 COLONOSCOPY WITH POLYPECTOMY performed by Bob Oneal MD at [facility] OR COLONOSCOPY N/A 09/02/2023 Colonoscopy with Biopsy performed by Bob Oneal MD at [facility] OR SEPTOPLASTY SMALL INTESTINE SURGERY Family History [...] Outpatient Medications Marked as Taking for the 05/01/24 encounter (Office Visit) with Pankaj Rosenberg MD Medication Sig Dispense Refill amLODIPine (NORVASC) 10 MG tablet TAKE 1 TABLET(10 MG) BY MOUTH DAILY 90 tablet 1 azelastine (ASTELIN) 0.1 % nasal spray USE 1 SPRAY IN EACH NOSTRIL TWICE DAILY DIRECTED 90 mL 1 Blood Glucose Monitoring Suppl ([employer] VERIO REFLECT) w/Device Kit 1 Units by Does not apply route 2 (two) times daily. buPROPion (WELLBUTRIN) 75 MG tablet Take 1 tablet (75 mg total) by mouth 2 (two) times daily. 180 tablet 0 CPAP DEVICE, DME, Use daily when sleeping or taking a nap. 1 Device 0 ezetimibe (ZETIA) 10 MG tablet Take 1 tablet (10 mg total) by mouth daily. 90 tablet 1 Lancets (Opegi HoldingsUCH DELICA PLUS [id number]) [facility] USE 1 LANCET TO PRICK FINGER TWICE DAILY BEFORE TESTING linaGLIPtin (TRADJENTA) 5 MG tablet Take 1 tablet (5 mg total) by mouth daily. 90 tablet 1 lisinopril (PRINIVIL) 10 MG tablet Take 1 tablet (10 mg total) by mouth daily. 90 tablet 1 montelukast (SINGULAIR) 10 MG tablet Take 1 tablet (10 mg total) by mouth nightly at bedtime. 30 tablet 6 omeprazole (PRILOSEC) 40 MG capsule Take 1 capsule (40 mg total) by mouth daily. 90 capsule 1 pravastatin (PRAVACHOL) 40 MG tablet TAKE 1 TABLET(40 MG) BY MOUTH EVERY NIGHT AT BEDTIME 90 tablet1 sulfaSALAzine (AZULFIDINE) 500 MG tablet Take 1 tablet (500 mg total) by mouth 2 (two) times daily.180 tablet 0 Current Facility-Administered Medications for the 05/01/24 encounter (Office Visit) with Pankaj Rosenberg MD Medication Dose Route Frequency Provider Last Rate Last Admin BUpivacaine (MARCAINE) 0.25 % injection 50 mL 50 mL Intrapleural Once lidocaine (XYLOCAINE) 1 % injection SOLN 2 mL 2 mL Intra-articular Once triamcinolone acetonide (KENALOG-40) injection 40 mg 40 mg Intramuscular Once triamcinolone acetonide (KENALOG-40) injection 80 mg 80 mg Intra-articular Once Allergies: Review of patient's allergies indicates: No Known Allergies Review of Systems Constitutional: Negative for chills, diaphoresis, fever, malaise/fatigue and weight loss. HENT: Negative. Eyes: Negative. Respiratory: Negative. Cardiovascular: Negative for chest pain, palpitations, orthopnea, claudication, leg swelling and PND. Gastrointestinal: Negative. Genitourinary: Negative. Musculoskeletal: Positive for joint pain. Negative for back pain, falls, myalgias and neck pain. Objective: Filed Vitals: 05/01/24 1608 BP: (!) 140/92 Pulse: 85 Resp: 18 Temp: 97.6 ??F (36.4 ??C) TempSrc: Temporal SpO2: 97% Weight: 120.4 kg (265 lb 6.4 oz) Height: 1.803 m (5' 11 ) Body mass index is 37.02 kg/m??. General alert, cooperative, no distress HEENT EOM's [...] Plan: Encounter Diagnose(s) ICD-10-CM SNOMED CT(R) 1. Chronic left shoulder pain M25.512 CHRONIC PAIN OF LEFT UPPER LIMB lidocaine (XYLOCAINE) 1 % injection SOLN 2 mL G89.29 triamcinolone acetonide (KENALOG-40) injection 80 mg 1. Chronic left shoulder pain - lidocaine (XYLOCAINE) 1 % injection SOLN 2 mL - triamcinolone acetonide (KENALOG-40) injection 80 mg *Joint Aspiration/Injection Date/Time: 05/01/2024 4:00 PM Performed by: Pankaj Rosenberg MD Authorized by: Pankaj Rosenberg MD Consent: Consent obtained: Verbal Consent given by: Patient Risks discussed: Pain Alternatives discussed: No treatment [place] protocol: Procedure explained and questions answered to patient or proxy's satisfaction: yes Relevant documents present and verified: yes Imaging studies available: yes Patient identity confirmed: Verbally with patient Location: Location: Shoulder Shoulder: L glenohumeral Procedure details: Needle gauge: 18 G Ultrasound guidance: no Approach: Posterior Steroid injected: yes Specimen collected: no Post-procedure details: Dressing: Sterile dressing Procedure completion: Tolerated Counseling given: Yes Tobacco comments: counseled by Dr Rosenberg I personally spent a total of 10 minutes on the day of the encounter. This includes [id number]-[id number] and otm-mbvh-hb-face time I provided on the day of the encounter & excludes time spent performing separately reportable services. Side effects and less common but more severe adverse effects of recommended medical therapies were explained to the patient. Requested MyChart or telephone follow up prn if symptoms change, worsen, or persist, or if side effect of treatment is experienced. KATARINAON: This dictation was at least in part performed using Retidoc and there may be some inherent flaws in this product strategy director due to the nature of this program. Pankaj Rosenberg MD Internal Medicine [facility], [facility]. MIXER documented in this encounter Plan of Treatment Upcoming Encounters Date Type Department Care Team (Late st Contact Info) Description 05/15/2024 3:30 PM GLUE MIXER Appointment [facility] [place] [address] Pankaj Rosenberg MD [address] [place] [address] 05/25/2024 12:45 PM GLUE MIXER Office Visit [facility] [address] [place] [address] Pankaj Rosenberg MD [address] [place] [address] Maya Magaña, [place] [address] 05/30/2024 3:40 PM GLUE MIXER Office Visit [facility] Medical [facility] Multispecialty Care - [address] [address] Pankaj Rosenberg MD [address] [place] [address] 06/20/2024 3:40 PM GLUE MIXER Telemedicine [facility] Medical [facility] Multispec[facility]ty Care - [place] [address] [place] [address] Pankaj Rosenberg MD [address] [place] [address] 06/21/2024 1:00 PM GLUE MIXER Office Visit [facility] [place] [address] [place] [address] Jose Ratliff MD [address] [address] [place] [address] 03/27/2025 1:00 PM GLUE MIXER Office Visit [facility] Multispecialty Care - [facility] [address] [place] [address] Bob Oneal MD [address] [facility] [address] [place] [address] documented as of this encounter Procedures Procedure Name Priority Date/Time Associated Diagnosis Comments DRAIN/INJECT LARGE JOINT/BURSA Routine 05/01/2024 4:00 PM GLUE MIXER Chronic left shoulder pain documented in this encounter Results * DRAIN/INJECT LARGE JOINT/BURSA (05/01/2024 4:00 PM GLUE MIXER) Narrative Pankaj Rosenberg MD - 05/01/2024 4:00 PM GLUE MIXER Pankaj Rosenberg MD ? 05/01/2024 ??4:26 PM *Joint Aspiration/Injection Date/Time: 05/01/2024 4:00 PM Performed by: Pankaj Rosenberg MD Authorized by: Pankaj Rosenberg MD ?? Consent: ??Consent obtained: ??Verbal ??Consent given by: ??Patient ??Risks discussed: ??Pain ??Alternatives discussed: ??No treatment [place] protocol: ??Procedure explained and questions answered to patient or proxy's satisfaction: yes ?Relevant documents present and verified: yes ?Imaging studies available: yes ?Patient identity confirmed: ??Verbally with patient Location: ??Location: ??Shoulder ??Shoulder: ??L glenohumeral Procedure details: ??Needle gauge: ??18 G ??Ultrasound guidance: no ?Approach: ??Posterior ??Steroid injected: yes ?Specimen collected: no ?? Post-procedure details: ??Dressing: ??Sterile dressing ??Procedure completion: ??Tolerated Result [facility] Pankaj Rosenberg MD PROCEDURE/MINOR SURGICAL ORDERAB LES Final Result documented in this encounter Visit Diagnoses Diagnosis Chronic left shoulder pain- Primary Pain in joint, shoulder region documented in this encounter Administered Medications Inactive Administered Medications - up to 3 most recent administrations Medication Order MAR Action Action Date Dose Rate Site lidocaine (XYLOCAINE) 1 % injection SOLN 2 mL 2 mL, Intra-articular, Once, 1 dose, On Tue05/01/24 at 1645Indications:Chronic left shoulder pain Given 05/01/2024 4:43 PM GLUE MIXER 2 mLs Left Shoulder triamcinolone acetonide (KENALOG-40) injection 80 mg 80 mg, Intra-articular, Once, 1 dose, On Tue05/01/24 at 1645, Shake Well IM Administration: Give in the gluteal muscle.Indications:Chronic left shoulder pain Given 05/01/2024 4:45 PM GLUE MIXER 80 mg Left Shoulder documented in this encounter Additional Health Concerns Assessment Noted Time PHQ-9 Depression Total Score: 5 02/15/20 24 8:25 AM CDT documented as of this encounter Care Teams Senior Network Systems Engineer Relationship Specialty Start Date End Date Pankaj Rosenberg MD [address] [address] PCP - General INTERNAL MEDICINE 06/15/21 documented as of this encounter
--- OUTSIDE RECORDS SUMMARY | 2024-05-13 10:43 | XMS_ITS | Encounter Summary ---
Author Organization [facility] Address [address] [place] [address]. [place], [place] [address] [place] [address] Care Team Providers Care Pretzel Cooker Name Role Phone Pankaj Rosenberg MD Primary Care Provider [phone] Reason for Visit * Reason Comments Follow Up Encounter Details Date Type Department Care Team (Late st Contact Info) Description 04/11/2024 1:20 PM ONLINE MARKETING ANALYST Office Visit [facility] Medical [facility] Multispecialty Care - [facility] 3 [facility] [address] [place] [phone] Mario Oneal MD 3 [facility] [place] [address] [place] [id number] Follow Up Social History Tobacco Use Types Packs/Day Years [...] on file Legal Sex Male 2:58 PM ONLINE MARKETING ANALYST Gender Identity Male 07/13/2021 5:19 AM ONLINE MARKETING ANALYST Sexual Orientation Straight 07/13/2021 5: 19 AM ONLINE MARKETING ANALYST documented as of this encounter Last Filed Vital Signs Vital Sign Reading Time Taken Comments Blood Pressure 131/91 04/11/2024 1:41 PM ONLINE MARKETING ANALYST Pulse 110 04/11/2024 1:41 PM ONLINE MARKETING ANALYST Temperature 36.7 ??C (98.1 ??F) 04/11/2024 1:41 PM CS T Respiratory Rate 16 04/11/2024 1:41 PM ONLINE MARKETING ANALYST Oxygen Saturation 96% 04/11/2024 1:41 PM ONLINE MARKETING ANALYST Inhaled Oxygen Concentration - - Weight 121.1 kg (267 lb) 04/11/2024 1:41 PM ONLINE MARKETING ANALYST Height 180.3 cm (5' 11 ) 04/11/2024 1:41 PM ONLINE MARKETING ANALYST Body Mass Index 37.24 04/11/2024 1:41 PM ONLINE MARKETING ANALYST documented in this encounter Progress Notes * Mario Oneal MD - 04/11/2024 1:20 PM CST Images from the original note were not included. Gastroenterology Established Visit Reason for Visit: Follow Up History of Present Illness: 3-month follow-up on colitis symptoms. Doing much better on Azulfidine 500 mg twice a day. Symptomsare about 90% improved. No abdominal pain. Medications: Current Outpatient Medications: amLODIPine (NORVASC) 10 MG tablet, TAKE 1 TABLET(10 MG) BY MOUTH DAILY, Disp: 90 tablet, Rfl: 1 azelastine (ASTELIN) 0.1 % nasal spray, USE 1 SPRAY IN EACH NOSTRIL TWICE DAILY DIRECTED, Disp: 90 mL, Rfl: 1 Blood Glucose Monitoring Suppl (MightyQuiz VERIO REFLECT) w/Device Kit, 1 Units by Does not apply route 2 (two) times daily., Disp: , Rfl: buPROPion (WELLBUTRIN) 75 MG tablet, Take 1 tablet (75 mg total) by mouth 2 (two) times daily., Disp: 180 tablet, Rfl: 1 Chlorhexidine Gluconate 2 % Solution, Use twice daily for rash., Disp: 473 mL, Rfl: 0 CPAP DEVICE, DME,, Use daily when sleeping or taking a nap., Disp: 1 Device, Rfl: 0 cyclobenzaprine (FLEXERIL) 5 MG tablet, Take 1 tablet (5 mg total) by mouth nightly as needed for Muscle Spasms., Disp: 20 tablet, Rfl: 0 ezetimibe (ZETIA) 10 MG tablet, Take 1 tablet (10 mg total) by mouth daily., Disp: 90 tablet, Rfl: 1 Lancets (MightyQuiz DELICA PLUS [id number]) [facility], USE 1 LANCET TO PRICK FINGER TWICE DAILY BEFORE TESTING, Disp: , Rfl: linaGLIPtin (TRADJENTA) 5 MG tablet, Take 1 tablet (5 mg total) by mouth daily., Disp: 90 tablet, Rfl: 1 lisinopril (PRINIVIL) 10 MG tablet, Take 1 tablet (10 mg total) by mouth daily., Disp: 90 tablet, Rfl: 1 methylPREDNISolone, YARON, (MEDROL DOSEPAK) 4 MG tablet, 6 TABLETS ON DAY ONE, 5 TABLETS DAY TWO, 4 TABLETS DAY THREE, 3 TABLETS DAY FOUR, 2 TABLETS DAY FIVE, AND 1 TABLET DAY SIX, Disp: 1 each, Rfl: 0 montelukast (SINGULAIR) 10 MG tablet, Take 1 tablet (10 mg total) by mouth nightly at bedtime., Disp: 30 tablet, Rfl: 6 mupirocin (BACTROBAN) 2 % ointment, Apply topically 2 (two) times daily. Use on the scalp on the rash., Disp: 22 g, Rfl: 3 omeprazole (PRILOSEC) 40 MG capsule, Take 1 capsule (40 mg total) by mouth daily., Disp: 90 capsule, Rfl: 1 pravastatin (PRAVACHOL) 40 MG tablet, TAKE 1 TABLET(40 MG) BY MOUTH EVERY NIGHT AT BEDTIME, Disp: 90 tablet, Rfl: 1 sulfaSALAzine (AZULFIDINE) 500 MG tablet, TAKE 1 TABLET(500 MG) BY MOUTH TWICE DAILY, Disp: 180 tablet, Rfl: 0 tretinoin (RETIN-A) 0.1 % cream, Apply topically nightly at bedtime., Disp: 45 g, Rfl: 4 TRUEplus Lancets 33G [facility], , Disp: , Rfl: vilazodone (VIIBRYD) 10 MG tablet, Take 1 tablet (10 mg total) by mouth daily. Take with food, Disp: 30 tablet, Rfl: 5 Allergies: No Known Allergies Medical History: Past Medical History: Diagnosis Date Allergy Arthrogryposis Diabetes mellitus (CMS/HCC HHS/HCC) Hyperlipidemia Hypertension Obstructive sleep apnea Personal history of (corrected) gastroschisis Surgical History: Past Surgical History: Procedure Laterality Date APPENDECTOMY as a baby along with gastroschisis COLONOSCOPY N/A 08/26/2021 COLONOSCOPY WITH POLYPECTOMY performed by Mario Oneal MD at [facility] OR COLONOSCOPY N/A 09/02/2023 Colonoscopy with Biopsy performed by Mario Oneal MD at [facility] OR SEPTOPLASTY SMALL INTESTINE SURGERY PE: Filed Vitals: 04/11/24 1341 BP: (!) 131/91 Pulse: (!) 110 Resp: 16 Temp: 98.1 ??F (36.7 ??C) SpO2: 96% Weight: 121.1 kg (267 lb) Height: 1.803 m (5' 11 ) General: In NAD, pleasant and appropriate HEENT: Anicteric Skin: Anicteric, no rashes Neuro: A&Ox3 Diagnoses/Impression: Inflammatory bowel disease. Possible Crohn's disease. Continue Azulfidine 500 twice daily. Check CBC and CMP. Recommendations and Plan: Renew medications and check CBC and CMP and lipase MARIO ONEAL MD 04/12/2024 Voice recognition software utilized NE MARKETING ANALYST documented in this encounter Plan of Treatment Upcoming Encounters Date Type Department Care Team (Late st Contact Info) Description 05/15/2024 3:30 PM ONLINE MARKETING ANALYST Appointment [facility] [place] [address] Pankaj Rosenberg MD [address] [place] [id number] 05/25/2024 12:45 PM ONLINE MARKETING ANALYST Office Visit [facility] Physical Therapy [address] [place] [address] Pankaj Rosenberg MD [address] [place] [id number] Maya Magaña, [place] [address] 05/30/2024 3:40 PM ONLINE MARKETING ANALYST Office Visit [facility] Medical Group Multispecialty Care - [place] [address] [address] [place] [address] Pankaj Rosenberg MD [address] [facility] [address] [place] [address] 06/20/2024 3:40 PM ONLINE MARKETING ANALYST Telemedicine [facility] Multispecialty Care - [place] [address] [facility] [address] [place] [address] Pankaj Rosenberg MD [address] [facility] [address] [place] [address] 06/21/2024 1:00 PM ONLINE MARKETING ANALYST Office Visit [facility] - [place] [address] [place] [address] Jose Ratliff MD [address] [facility] [address] [place] [address] 03/27/2025 1:00 PM ONLINE MARKETING ANALYST Office Visit [facility] Multispecialty Care - [facility] 3 [facility] [place] [id number] Mario Oneal MD 3 [facility] [place] [address] [place] [address] Scheduled Orders Name Type Priority Associated Diagnoses Orde r Schedule CBC W/DIFF AUTOMATED Lab Routine IBD (inflammatory bowel disease) Ileitis Expected: 04/11/2024, Expires: 04/11/2025 COMPREHENSIVE METABOLIC PANEL Lab Routine IBD (inflammatory bowel disease) Ileitis Expected: 04/11/2024, Expires: 04/11/2025 LIPASE Lab Routine IBD (inflammatory bowel disease) Ileitis Expected: 05/12/2024, Expires: 04/12/2025 documented as of this encounter Visit Diagnoses Diagnosis IBD (inflammatory bowel disease)- Primary Other and unspecified noninfectious gastroenteritis and colitis Ileitis Other and unspecified noninfectious gastroenteritis and colitis Epigastric pain Abdominal pain, epigastric Generalized abdominal pain Abdominal pain, generalized Rectal bleeding Hemorrhage of rectum and anus Constipation, unspecified constipation type SBO (small bowel obstruction) (CMS/HCC HHS/HCC) Unspecified intestinal obstruction documented in this encounter Additional Health Concerns Assessment Noted Time PHQ-9 Depression Total Score: 5 02/15/20 24 8:25 AM CDT documented as of this encounter Care Teams Pretzel Cooker Relationship Specialty Start Date End Date Pankaj Rosenberg MD [address] [address] PCP - General INTERNAL MEDICINE 06/15/21 documented as of this encounter
--- OUTSIDE RECORDS SUMMARY | 2024-05-13 10:43 | XMS_ITS | Encounter Summary ---
Author Organization [facility] Address [address] [place] [address]. [place], [place] [id number] [place] [address] Care Team Providers Care Insurance Investigator Name Role Phone Pankaj Rosenberg MD Primary Care Provider [phone] Reason for Referral * Consultation (Routine) - New Request Specialty Diagnoses / Procedures Referred By Contac t Referred To Contact ORTHOPAEDICS Diagnoses Chronic left shoulder pain Procedures OFFICE/OUTPATIENT NEW LOW MDM 30-44 MINUTES OFFICE/OUTPT VISIT,NEW,LEVL IV OFFICE/OUTPT VISIT,NEW,LEVL V OFFICE/OUTPT VISIT,EST,LEVL III OFFICE/OUTPT VISIT,EST,LEVL IV OFFICE/OUTPT VISIT,EST,LEVL V Pankaj Rosenberg MD [address] [facility] [address] [place] [address] Phone: tel: fax: Jose Ratliff MD [address] [place] [address] Phone: tel: fax: Referral ID Status Reason Start Date Expiration Date Visits Requested Visits Authorized [id number] New Request Specialty Services 06/01/2025 100 100 W HAT BRIM CUTTER OPERATOR * Physical Medicine (Routine) - Authorized Specialty Diagnoses / Procedures Referred By Contac t Referred To Contact PHYSICAL THERAPY / [facility] Physical Therapy Diagnoses Chronic left shoulder pain Procedures OFFICE/OUTPATIENT NEW LOW MDM 30-44 MINUTES OFFICE/OUTPT VISIT,NEW,LEVL IV OFFICE/OUTPT VISIT,NEW,LEVL V OFFICE/OUTPT VISIT,EST,LEVL III OFFICE/OUTPT VISIT,EST,LEVL IV OFFICE/OUTPT VISIT,EST,LEVL V Pankaj Rosenberg MD [address]8 [place] [address] Phone: tel: fax: [facility] Physical Therapy [address] [place] [address] Phone: tel: fax: Referral ID Status Reason Start Date Expiration Date Visits Requested Visits Authorized [id number] Authorized Physical Therapy 05/30/2025 1 1 W HAT BRIM CUTTER OPERATOR * Imaging (Routine) - Authorized Specialty Diagnoses / Procedures Referred By Contac t Referred To Contact RADIOLOGY Diagnoses Chronic left shoulder pain Procedures MRI SHOULDER LT WO CON Pankaj Rosenberg MD [address] [place] [address] Phone: tel: fax: Referral ID Status Reason Start Date Expiration Date V isits Requested Visits Authorized [id number] Authorized 04/30/2024 04/30/2025 1 1 W HAT BRIM CUTTER OPERATOR Reason for Visit * Reason Comments Follow Up Medication f/u for v ilazidone and sore shoulder Shoulder Pain Depression Encounter Details Date Type Department Care Team (Latest Contact Info) Description 04/30/2024 3:40 PM STRAW HAT BRIM CUTTER OPERATOR Telemedicine [facility] Multispecialty Care - [place] [address] [address] [place] [address] Pankaj Rosenberg MD [address] [place] [address] Follow Up (Medication f/u for vilazidone and sore shoulder ); Shoulder Pain; Depression Social History Tobacco Use Types Packs/Day Years [...] on file Legal Sex Male 2:58 PM STRAW HAT BRIM CUTTER OPERATOR Gender Identity Male 07/13/2021 5:19 AM STRAW HAT BRIM CUTTER OPERATOR Sexual Orientation Straight 07/13/2021 5: 19 AM STRAW HAT BRIM CUTTER OPERATOR documented as of this encounter Last Filed Vital Signs Vital Sign Reading Time Taken Comments Blood Pressure - - Pulse - - Temperature - - Respiratory Rate - - Oxygen Saturation - - Inhaled Oxygen Concentration - - Weight 117.9 kg (260 lb) 04/30/2024 3:43 PM STRAW HAT BRIM CUTTER OPERATOR Height - - Body Mass Index 36.26 04/11/2024 1:41 PM STRAW HAT BRIM CUTTER OPERATOR documented in this encounter Patient Instructions * Patient Instructions* Pankaj Rosenberg MD - 04/30/2024 3:40 PM STRAW HAT BRIM CUTTER OPERATOR Referral call You will receive a call from our referral team ([phone]) regarding your referral. Insurance authorization Our auto inspection specialist will contact your insurance company to get prior authorization if needed. Appointment If you have been referred to an [facility] hospital or [facility] provider, the hospital or clinic you have been referred to will call you to schedule your appointment. For those outside services of [facility], our referral expects will be in contact by phone or mail regarding your recently placed referral. If you have not heard anything from your referral in about 1 week, please call [phone]. Working with insurance companies can be cumbersome, but we are dedicated to processing your referral timely and efficiently. Please know you have a caring and competent team working on your behalf [facility] continuum of care as quickly as possible. W HAT BRIM CUTTER OPERATOR * Attachments The following attachments cannot be sent through Care Everywhere. * Shoulder Pain Discharge Instructions (Georgian) documented in this encounter Progress Notes * Pankaj Rosenberg MD - 04/30/2024 3:40 PM CSTSummary: Acute visit notes TELE- VISIT NOTES Reason for Visit: Follow Up (Medication f/u for vilazidone and sore shoulder ), Shoulder Pain, and Depression History of Present Illness: Chuck Barlow is a 29-year-old male here for telemedicine visit. He is concerned about left shoulder pain that is still ongoing for more than 8 weeks now. He is also here to discuss his mood medications. Patient was seen in February 2024. During that visit, he did bring to my attention having chronic left shoulder pain that recently was sprained about a month prior. He reports he was throwing or removing his From his head or lifting a gallon of milk when he experienced throbbing pain in the left shoulder. Currently still no numbness or tingling but pain is noticeable with activities that involve lifting. Currently not taking any pain medications due to GI concerns. Concerns for GERD symptoms andpatient cannot tolerate most pain medications. No prior surgeries to the left shoulder. He did not hear any popping sound of the left shoulder. No swelling of the left shoulder joint at this time. Hewas given a course of steroids and a steroid and Toradol shot to the deltoid. X-ray done did not show any acute bony changes however confirmed mild lateral acromial downsloping which could impress upon the underlying supraspinatus muscle. He does not follow with orthopedics at this time. Comes in to discuss the neck steps. For his mood medications, he is only currently taking his Wellbutrin 75 mg twice daily. He wanted to bring to my attention that he is doing okay and has not started vilazodone. He tells me his mood is stable. I did explain to patient that we can always readdress how he is doing during his May 2024 appointment. Okay to continue with Wellbutrin only for now. I introduced and identified myself, received verbal consent from the patient to proceed with this video visit and made the patient aware that the same confidentiality and information systems security specialist practices apply. The patient joined the video visit from Vehicle. I completed the virtual visit from Office. The following clinical staff helped with this visit MA: Carolyne Mendoza Total Time Spent in Minutes: 40 Patient in the [facility] at time of this visit. ROS: Review of Systems Medications: Current Outpatient Medications: amLODIPine (NORVASC) 10 MG tablet, TAKE 1 TABLET(10 MG) BY MOUTH DAILY, Disp: 90 tablet, Rfl: 1 azelastine (ASTELIN) 0.1 % nasal spray, USE 1 SPRAY IN EACH NOSTRIL TWICE DAILY DIRECTED, Disp: 90 mL, Rfl: 1 Blood Glucose Monitoring Suppl (Nasza-klasa.pl VERIO REFLECT) w/Device Kit, 1 Units by Does not apply route 2 (two) times daily., Disp: , Rfl: buPROPion (WELLBUTRIN) 75 MG tablet, Take 1 tablet (75 mg total) by mouth 2 (two) times daily., Disp: 180 tablet, Rfl: 0 CPAP DEVICE, DME,, Use daily when sleeping or taking a nap., Disp: 1 Device, Rfl: 0 ezetimibe (ZETIA) 10 MG tablet, Take 1 tablet (10 mg total) by mouth daily., Disp: 90 tablet, Rfl: 1 Lancets (Nasza-klasa.pl DELICA PLUS [id number]) [facility], USE 1 LANCET TO PRICK FINGER TWICE DAILY BEFORE TESTING, Disp: , Rfl: linaGLIPtin (TRADJENTA) 5 MG tablet, Take 1 tablet (5 mg total) by mouth daily., Disp: 90 tablet, Rfl: 1 lisinopril (PRINIVIL) 10 MG tablet, Take 1 tablet (10 mg total) by mouth daily., Disp: 90 tablet, Rfl: 1 montelukast (SINGULAIR) 10 MG tablet, Take 1 tablet (10 mg total) by mouth nightly at bedtime., Disp: 30 tablet, Rfl: 6 omeprazole (PRILOSEC) 40 MG capsule, Take 1 capsule (40 mg total) by mouth daily., Disp: 90 capsule, Rfl: 1 pravastatin (PRAVACHOL) 40 MG tablet, TAKE 1 TABLET(40 MG) BY MOUTH EVERY NIGHT AT BEDTIME, Disp: 90 tablet, Rfl: 1 sulfaSALAzine (AZULFIDINE) 500 MG tablet, Take 1 tablet (500 mg total) by mouth 2 (two) times daily., Disp: 180 tablet, Rfl: 0 Chlorhexidine Gluconate 2 % Solution, Use twice daily for rash. (Patient not taking: Reported on 04/30/2024), Disp: 473 mL, Rfl: 0 cyclobenzaprine (FLEXERIL) 5 MG tablet, Take 1 tablet (5 mg total) by mouth nightly as needed for Muscle Spasms. (Patient not taking: Reported on 04/30/2024), Disp: 20 tablet, Rfl: 0 mupirocin (BACTROBAN) 2 % ointment, Apply topically 2 (two) times daily. Use on the scalp on the rash. (Patient not taking: Reported on 04/30/2024), Disp: 22 g, Rfl: 3 tretinoin (RETIN-A) 0.1 % cream, Apply topically nightly at bedtime. (Patient not taking: Reported on 04/30/2024), Disp: 45 g, Rfl: 4 TRUEplus Lancets 33G [facility], , Disp: , Rfl: vilazodone (VIIBRYD) 10 MG tablet, Take 1 tablet (10 mg total) by mouth daily. Take with food (Patient not taking: Reported on 04/30/2024), Disp: 30 tablet, Rfl: 5 Current Facility-Administered Medications: BUpivacaine (MARCAINE) 0.25 % injection 50 mL, 50 mL, Intrapleural, Once, triamcinolone acetonide (KENALOG-40) injection 40 mg, 40 mg, Intramuscular, Once, Review of patient's allergies indicates: No Known Allergies Past Medical History: Diagnosis Date Allergy Arthrogryposis Diabetes mellitus ([facility]) Hyperlipidemia Hypertension Obstructive sleep apnea Personal history of (corrected) gastroschisis Past Surgical History: Procedure Laterality Date APPENDECTOMY as a baby along with gastroschisis COLONOSCOPY N/A 08/26/2021 COLONOSCOPY WITH POLYPECTOMY performed by Bob Oneal MD at [facility] OR COLONOSCOPY N/A 09/02/2023 Colonoscopy with Biopsy performed by Bob Oneal MD at [facility] OR SEPTOPLASTY SMALL INTESTINE SURGERY Social History Socioeconomic History Marital status: Tobacco Use Smoking status: Never Smokeless tobacco: Former Types: Snuff, Chew Quit date: 08/14/2020 Tobacco comments: counseled by Dr Rosenberg Vaping Use Vaping status: Never Used Substance and Sexual Activity Alcohol use: Yes Alcohol/week: 5.0 standard drinks of alcohol Types: 3 Cans of beer per week Comment: socially on weekends Drug use: Never Sexual activity: Yes Social Drivers of Health Financial Resource Strain: Low Risk (07/27/2022) Received from [facility] [employer], [facility] [employer] Overall Financial Resource Strain (CARDIA) Difficulty of Paying Living Expenses: Not hard at all Food Insecurity: No Food Insecurity (07/27/2022) Received from [facility] Hunger Vital Sign Worried About Running Out of Food in the Last Year: Never true Ran Out of Food in the Last Year: Never true Transportation Needs: No Transportation Needs (07/27/2022) Received from [facility] PRAPARE - Transportation Lack of Transportation (Medical): No Lack of Transportation (Non-Medical): No Stress: No Stress Concern Present (07/27/2022) Received from [facility] Occupational [facility] - Occupational Stress Questionnaire Feeling of Stress : Not at all Housing Stability: High Risk (07/27/2022) Received from [facility] Housing Stability Vital Sign Unable to Pay for Housing in the Last Year: Yes Number of Places Lived in the Last Year: 1 Unstable Housing in the Last Year: No Family History Problem Relation Name Age of Onset No Known Problems Mother No Known Problems Father Heart Disease Maternal Grandfather Heart Disease Paternal Grandfather Thyroid Disease Paternal Grandfather Family Status Relation Name Status Mother Alive Father MGF (Not Specified) PGF (Not Specified) No partnership data on file Still with limited mobility of the left upper extremity. Otherwise examination limited. Diagnoses/Impression: 1. Chronic left shoulder pain MRI SHOULDER LT WO CON Ambulatory referral to Physical Therapy BUpivacaine (MARCAINE) 0.25 % injection 50 mL triamcinolone acetonide (KENALOG-40) injection 40 mg Ambulatory referral to Orthopedics ( [place]) 2. Mild episode of recurrent major depressive disorder (CMS/HCC) buPROPion (WELLBUTRIN) 75 MG tablet 1. Chronic left shoulder pain -Still not controlled. Still unable to use the left upper extremity and still has pain with lifting. Discussed cortisone shots with the patient and patient will come in at a different time to have done. Referral to orthopedics also placed at today's visit if patient is a candidate for arthroscopy versus other form of treatment/management. Getting MRI to ensure no torn muscle. Not a candidate for NSAIDs. - MRI SHOULDER LT WO CON; Future - Ambulatory referral to Physical Therapy - BUpivacaine (MARCAINE) 0.25 % injection 50 mL - triamcinolone acetonide (KENALOG-40) injection 40 mg - Ambulatory referral to Orthopedics ( [place]) 2. Mild episode of recurrent major depressive disorder (CMS/HCC) -Stable for now. Patient did bring to my attention not taking Viibryd and for now we will monitor. Close follow-up in 4 weeks. -Continue with buPROPion (WELLBUTRIN) 75 MG tablet; Take 1 tablet (75 mg total) by mouth 2 (two) times daily. Dispense: 180 tablet; Refill: 0 I personally spent a total of 40 minutes on the day of the encounter. This includes mtvt-wv-cbch and wtr-kwvi-pr-face time I provided on the day of the encounter & excludes time spent performing separately reportable services. Orders Placed This Encounter Ambulatory referral to Physical Therapy Ambulatory referral to Orthopedics ( ) MRI SHOULDER LT WO CON BUpivacaine (MARCAINE) 0.25 % injection 50 mL triamcinolone acetonide (KENALOG-40) injection 40 mg buPROPion (WELLBUTRIN) 75 MG tablet PANKAJ ROSENBERG MD Referring Provider: No ref. provider found PCP: PANKAJ ROSENBERG MD W HAT BRIM CUTTER OPERATOR documented in this encounter Plan of Treatment Upcoming Encounters Date Type Department Care Team (Late st Contact Info) Description 05/15/2024 3:30 PM STRAW HAT BRIM CUTTER [place] [address] Pankaj Rosenberg MD [address] [place] [phone] 05/25/2024 12:45 PM STRAW HAT BRIM CUTTER OPERATOR Office Visit [facility] Physical Therapy [address] [place] [address] [phone] Pankaj Rosenberg MD [address] [place] [address] Maya [place]aña, [place] [address] 05/30/2024 3:40 PM STRAW HAT BRIM CUTTER OPERATOR Office Visit [facility] Multispecialty Care - [place] [address] [address] [place] [address] Pankaj Rosenberg MD [address] [address] 06/20/2024 3:40 PM STRAW HAT BRIM CUTTER OPERATOR [facility] [place] [address] [address] [place] [address] Pankaj Rosenberg MD [address] [address] 06/21/2024 1:00 PM STRAW HAT BRIM CUTTER OPERATOR Office Visit [facility] Orthopedic & Sports Medicine - [place] [address] [place] [address] Jose Ratliff MD 670 [facility] [id number] [place] [address] 03/27/2025 1:00 PM STRAW HAT BRIM CUTTER OPERATOR Office Visit [facility] Multispecialty [facility] 3 [facility], [address] [place] [phone] Bob Oneal MD [address] [place] [address] [address] [place] [address] Scheduled Orders Name Type Priority Associated Diagnoses Orde r Schedule MRI SHOULDER LT WO CON MRI Routine Chronic left shoulder pain Expected: 04/30/2024, Expires: 04/30/2025 Scheduled Referrals Name Type Priority Associated Diagnoses Orde r Schedule Ambulatory referral to Physical Therapy Referral Routine Chronic left shoulder pain Ordered: 04/30/2024 Ambulatory referral to Orthopedics ( [place]) Referral Routine Chronic left shoulder pain Ordered: 04/30/2024 documented as of this encounter Visit Diagnoses Diagnosis Chronic left shoulder pain- Primary Pain in joint, shoulder region Mild episode of recurrent major depressive disorder (CMS/HCC) documented in this encounter Additional Health Concerns Assessment Noted Time PHQ-9 Depression Total Score: 5 02/15/20 24 8:25 AM CDT documented as of this encounter Care Teams Insurance Investigator Relationship Specialty Start Date End Date Pankaj Rosenberg MD [address] [phone] PCP - General INTERNAL MEDICINE 06/15/21 documented as of this encounter
--- OUTSIDE RECORDS SUMMARY | 2024-05-13 10:43 | XMS_ITS | Encounter Summary ---
Author Organization [facility] Address [address] [place] [address]. [place], [place] [id number] [place] [address] Care Team Providers Care Press And Blow Machine Tender Name Role Phone Pankaj Rosenberg MD Primary Care Provider [phone] Encounter Details Date Type Department Care Team (Latest Contact Info) Description 02/15/2024 Travel Social History Tobacco Use Types Packs/Day [...] on file Legal Sex Male 2:58 PM WINDOW SYSTEMS ADMINISTRATOR Gender Identity Male 07/13/2021 5:19 AM WINDOW SYSTEMS ADMINISTRATOR Sexual Orientation Straight 07/13/2021 5: 19 AM WINDOW SYSTEMS ADMINISTRATOR documented as of this encounter Plan of Treatment Upcoming Encounters Date Type Department Care Team (Late st Contact Info) Description 05/15/2024 3:30 PM WINDOW SYSTEMS ADMINISTRATOR Appointment [facility] [place] [address] Pankaj Rosenberg MD [address] [address] 05/25/2024 12:45 PM WINDOW SYSTEMS ADMINISTRATOR Office Visit [facility] Physical Therapy [address] [address] Pankaj Rosenberg MD [address] [address] Maya Magaña, [place] [address] 05/30/2024 3:40 PM WINDOW SYSTEMS ADMINISTRATOR Office Visit [facility] Medical [facility] Multispecialty Care - [place] [address] [address] [place] [address] Pankaj Rosenberg MD [address] [address] 06/20/2024 3:40 PM WINDOW SYSTEMS ADMINISTRATOR [facility] [place] [address] [address] [place] [address] Pankaj Rosenberg MD [address] [address] 06/21/2024 1:00 PM WINDOW SYSTEMS ADMINISTRATOR Office Visit [facility] Medical Group Orthopedic & Sports Medicine - [place] [address] [place] [address] Jose Ratliff MD [phone] [place] [address] 03/27/2025 1:00 PM WINDOW SYSTEMS ADMINISTRATOR Office Visit [facility] Medical [facility] Mult[facility]pecialty Care - [facility] 3 [facility] [address] [place] [phone] Bob Oneal MD 3 [facility] [address] [place] [address] documented as of this encounter Visit Diagnoses Not on filedocumented in this encounter Additional Health Concerns Assessment Noted Time PHQ-9 Depression Total Score: 5 02/15/20 24 8:25 AM CDT documented as of this encounter Care Teams Press And Blow Machine Tender Relationship Specialty Start Date End Date Pankaj Rosenberg MD [address] [address] PCP - General INTERNAL MEDICINE 06/15/21 documented as of this encounter
--- OUTSIDE RECORDS SUMMARY | 2024-05-13 10:44 | XMS_ITS | Encounter Summary ---
Author Organization [facility] Address [address] [place] [address]. [place], [place] [phone] [place] [address] Care Team Providers Care Service Worker Name Role Phone Pankaj Rosenberg MD Primary Care Provider [phone] Reason for Visit * Reason Onset Date Comments Information 06/20/2023 Encounter Details Date Type Department Care Team (Late st Contact Info) Description 06/20/2023 Telephone [facility] Multispecialty Care - [place] [address] [address] [place] [address] Pankaj Rosenberg MD [address] [place] [address] [address] [place] [address] Information Social History Tobacco Use Types Packs/Day Years Used Date Smoking Tobacco: Never Smokeless Tobacco: Former Snuff, Chew Quit: 08/14/2020 Comments:counseled by Dr Sammie gallardo Alcohol Use Standard Drinks/Week Comments Yes 5 (1 standard drink = 0.6 oz pur e alcohol) socially on weekends PHQ-2 Answer Date Recorded Patient Health Questionnaire-2 Score 2 06/15/2023 Sex and Gender Information Value Date Recorded Sex Assigned at Not on file Legal Sex Male 2:58 PM CIVIL TECHNICIAN Gender Identity Male 07/13/2021 5:19 AM CIVIL TECHNICIAN Sexual Orientation Straight 07/13/2021 5: 19 AM CIVIL TECHNICIAN documented as of this encounter Progress Notes * Viviana Romero MA - 06/20/2023 1:16 PM CST Pt called saying his pror auth needs to be prioritized as he needs his medication. It was prescribed Tuesday informed pt we are off on weekends and prior auth is still in works he should be hearing within the next day or two. L TECHNICIAN documented in this encounter Plan of Treatment Upcoming Encounters Date Type Department Care Team (Late st Contact Info) Description 05/15/2024 3:30 PM CIVIL TECHNICIAN Appointment [facility] [place] [address] [place] [address] [place] [address] 05/25/2024 12:45 PM CIVIL TECHNICIAN Office Visit [facility] Physical Therapy [address] [place] [address] Pankaj Rosenberg MD [address] [place] [phone] Maya Magaña, [place] [address] 05/30/2024 3:40 PM CIVIL TECHNICIAN Office Visit [facility] - [address] [address] Pankaj Rosenberg MD [address] [place] [address] 06/20/2024 3:40 PM CIVIL TECHNICIAN Telemedicine [facility] - [place] [address] [place] [address] Pankaj Rosenberg MD [facility] [address] [address] 06/21/2024 1:00 PM CIVIL TECHNICIAN Office Visit [facility] Orthopedic & Sports Medicine - [place] [address] [place] [address] Jose Ratliff MD [address] [place] [address] [place] [address] 03/27/2025 1:00 PM CIVIL TECHNICIAN Office Visit [facility] Multispecialty Care - [facility] 3 [facility] [address] [place] [address] Bob Oneal MD [facility] [address] [place] [address] documented as of this encounter Visit Diagnoses Not on filedocumented in this encounter Additional Health Concerns Assessment Noted Time PHQ-9 Depression Total Score: 4 06/15/19 24 9:40 AM CIVIL TECHNICIAN documented as of this encounter Care Teams Service Worker Relationship Specialty Start Date End Date Pankaj Rosenberg MD [address] [address] PCP - General INTERNAL MEDICINE 06/15/21 documented as of this encounter
--- OUTSIDE RECORDS SUMMARY | 2024-05-13 10:44 | XMS_ITS | Encounter Summary ---
Author Organization [facility] Address [address] [place] [address]. [place], [place] [id number] [place] [id number] Care Team Providers Care Lead Handler Name Role Phone Pankaj Rosenberg MD Primary Care Provider [phone] Reason for Referral * Consultation (Routine) - Authorized Specialty Diagnoses / Procedures Referred By Contac t Referred To Contact OPHTHALMOLOGY Diagnoses Type 2 diabetes mellitus with hyperglycemia, without long-term current use of insulin ([facility]) Procedures OFFICE/OUTPATIENT NEW LOW MDM 30-44 MINUTES OFFICE/OUTPT VISIT,NEW,LEVL IV OFFICE/OUTPT VISIT,NEW,LEVL V OFFICE/OUTPT VISIT,EST,LEVL III OFFICE/OUTPT VISIT,EST,LEVL IV OFFICE/OUTPT VISIT,EST,[place] [address] [place] [address] [address] [place] [address] Phone: tel: fax: [address] [place] [address] Phone: tel: Referral ID Status Reason Start Date Expiration Date Visits Requested Visits Authorized [id number] Authorized Specialty Services 11/14/2023 12/13/2024 99 99 Reason for Visit * Reason Comments Physical Hypertension Hyperlipidemia Rash Depression Anxiety GERD Encounter Details Date Type Department Care Team (Latest Contact Info) Description 11/14/2023 3:00 PM CDT Office Visit [facility] - [address] [place] [id number] Pankaj Rosenberg MD [address] [facility] [address] [place] [address] Physical; Hypertension; Hyperlipidemia; Rash; Depression; Anxiety; GERD Social History Tobacco Use Types Packs/Day Years [...] on file 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 Gender Identity Male 07/13/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 Sexual Orientation Straight 07/13/2021 5: 19 AM RADIOLOGICAL ENGINEER documented as of this encounter Last Filed Vital Signs Vital Sign Reading Time Taken Comments Blood Pressure 121/81 11/14/2023 2:58 PM CDT Pulse 96 11/14/2023 2:58 PM CDT Temperature 36.7 ??C (98.1 ??F) 11/14/2023 2:58 PM CD T Respiratory Rate 18 11/14/2023 2:58 PM CDT Oxygen Saturation 97% 11/14/2023 2:58 PM CDT Inhaled Oxygen Concentration - - Weight 115.9 kg (255 lb 9.6 oz) 11/14/2023 2:58 PM CDT Height 180.3 cm (5' 11 ) 11/14/2023 2:58 PM CDT Body Mass Index 35.65 11/14/2023 2:58 PM CDT documented in this encounter Patient Instructions * Patient Instructions* Pankaj Rosenberg MD - 11/14/2023 3:00 PM CDT Follow up in 8 weeks in January 2024 for your anxiety medication. * Attachments The following attachments cannot be sent through Care Everywhere. * Yearly Physical for Adults (Nicaraguan) documented in this encounter Progress Notes * Pankaj Rosenberg MD - 11/14/2023 3:00 PM CDTSummary: Annual physical notes Images from the original note were not included. ANNUAL PHYSICAL NOTES Encounter Date: 11/14/2023 Chief Complaint: 28-year-old male presents for Physical, Hypertension, Hyperlipidemia, Rash, Depression, Anxiety, and GERD HPI The patient is being seen for a health maintenance evaluation and for follow up of chronic medical issues. His main concern at today's visit is that of rash that is still present on his scalp and face. Was prescribed clindamycin gel as well as mupirocin but this is not helping. Concerns for folliculitis. Had cultures done which only showed Staph aureus with coagulase-negative findings. Was seen by dermatology in the past and currently no longer following with dermatology. Patient also concerned about uncontrolled major depression. His major depression with currently prescribed Wellbutrin 150 mg twice daily however he reports he did have difficulty climaxing though initially, no issues with sexual side effects whilst on medication. He has since cut back on his dose of Wellbutrin to 75 mg twice daily and this particular issue has resolved however still reports uncontrolled depression symptoms. He is still concerned. His scores appear much lower than he seems to beconcerned. Currently not following with therapy or psychiatry. He endorses compliance to medications. No suicidal thoughts or intentions to harm. No ronn, delusions or hallucinations. Patient also with hyperlipidemia currently on pravastatin 40 mg nightly. He is also on ezetimibe 10mg daily and compliance. No myalgias. Patient is also diabetic and hypertensive. Patient also with diabetes mellitus currently on Tradjenta. Previously had been on Januvia however due to insurance issues, this had to be changed. Compliance. No polyuria or polydipsia. He reports noticing more constipation but is unsure if this is due to the Tradjenta or due to his pantoprazole. Otherwise no hypoglycemic symptoms. He currently does not follow with endocrinology. Patient also with hypertension currently on lisinopril 10 mg daily and amlodipine 10 mg daily. He is taking his medication as directed with no adverse side effects. Denies any chronic cough.Denies any concerns for shortness of breath, chest tightness with activity, palpitations, ankle swelling, orthopnea, paroxysmal nocturnal or chronic cough. Currently does not follow with cardiology. His blood pressure is controlled at today's visit. He has underlining allergies which is currently stable on azelastine nasal spray and [id number] antihistamines with stable symptoms. She recently saw gastroenterology and had and colonoscopy and endoscopy done in August 2023. 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 Colonoscopy with terminal ilial ulcers taking as well. Pathology results revealed small intestinal mucosa with no significant pathologic abnormality. Dilated lacteals. Terminal ileum biopsy showed small intestinal mucosa with no significant otologic abnormality. Scant detached fragments of ulcerated tissue. CMV negative. No fungalorganisms. Patient has since been started on sulfasalazine and has been on medication at least for the past few weeks. He denies any side effects from medication. He has follow-up appointment with gas troenterology in January 2024. Denies any blood in stool or melena. He reports recently hitting his head against his basement to roof whilst working on renovating partof his house. Subsequently suffered concussion symptoms notable for dizziness, headaches, confusionafter he hit his head against basement wall and doing well for now. He was seen at the ER and doingwell. Not on any medications at this time. He has underlining GERD and currently on pantoprazole 40 mg daily. He reports he did better on omeprazole with less constipation side effects and once prescription changed. No blood in stool or melena. Recently underwent endoscopy with no concerning findings other than duodenal lymphangiectasia. Obstructive sleep apnea on CPAP. Currently patient on CPAP machine. Using machine as directed. Reports this helps. Follows with pulmonary. 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 Recently has been battling with partial obstructive symptoms which have been managed conservatively with no recent surgeries. So far doing well. Follows closely with gastroenterology. Patient Active Problem List Diagnosis Mixed hyperlipidemia Traumatic brain injury ([facility]HCC) Nonalcoholic steatohepatitis Gallbladder polyp Fracture of spinous process of cervical vertebra ([facility]) Essential hypertension, benign Deviated nasal septum Allergic rhinitis Arthrogryposis Type 2 diabetes mellitus with hyperglycemia, without long-term current use of insulin ([facility]) Gastroesophageal reflux disease without esophagitis Nausea and vomiting, unspecified vomiting type Change in bowel function Epigastric burning sensation KARRIE (obstructive sleep apnea) History of gastroschisis Hypertrophy of nasal turbinates S/P exploratory laparotomy S/P small bowel resection Generalized abdominal pain Rectal bleeding Epigastric pain Constipation, unspecified constipation type SBO (small bowel obstruction) ([facility]) Polyp of gallbladder Hyperlipidemia due to type 2 diabetes mellitus ([facility]) Folliculitis Mild episode of recurrent major depressive disorder ([facility]) Hypertension associated with type 2 diabetes mellitus ([facility]) General Health: good Dental Health: Sees dentist regularly Vision Health: No vision correction Hearing Health: No hearing problems Immunizations Needed: Tdap and HPV Weight: Obese Body mass index is 35.65 kg/m??. Physical Activity: Acitve lifestyle Prostate Cancer Screening: None Testicular Cancer Screening: None Colorectal Cancer Screening: None Metabolic Screening: Patient needs to be screened today. HCV Screening: Done PHQ-9 Screening Score: PHQ-9: 10/21/2023 1:04 PM 11/14/2023 3:59 PM PHQ2/PHQ 9 DEPRESSION SCREEN QUESTIONAIRE Little interest or pleasure in doing things Not at all Several days Feeling down, depressed, or hopeless Not at all Several days Patient Health Questionnaire-2 Score 0 2 KANCHAN-7 (Generalized Anxiety Disorder) Screening 06/15/2023 9:41 AM 11/14/2023 4:00 PM KANCHAN-7 Feeling nervous, anxious, or on edge 1 1 Not being able to stop or control worrying 0 0 Worrying too much about different things 0 0 Trouble relaxing 0 0 Being so restless that it is hard to sit still 0 0 Becoming easily annoyed or irritable 1 1 Feeling afraid as if something awful might happen 0 0 KANCHAN-7 Total Score 2 2 How difficult have these problems made it for you to do your work, take care of things at home, or get along with other people? Not difficult at all Somewhat difficult Smoking Status: History Smoking Status Never Smokeless Tobacco Former Types: Snuff, Chew Quit date: 08/14/2020 Patient does not meet criteria for Low Dose CT screening Sleep Apnea Risk Factors: KARRIE on CPAP Review of Systems Constitutional: Negative for chills, diaphoresis, fever, malaise/fatigue and weight loss. HENT: Negative. Eyes: Negative. Respiratory: Negative. Cardiovascular: Negative for chest pain, palpitations, orthopnea, claudication, leg swelling and PND. Gastrointestinal: Negative. Genitourinary: Negative. Musculoskeletal: Negative. Neurological: Negative. Psychiatric/Behavioral: Negative. Past Medical History: Diagnosis Date Allergy Arthrogryposis Diabetes mellitus ([facility]) Hyperlipidemia Hypertension Obstructive sleep apnea Personal history of (corrected) gastroschisis Past Surgical History: Procedure Laterality Date APPENDECTOMY as a baby along with gastroschisis COLONOSCOPY N/A 08/26/2021 COLONOSCOPY WITH POLYPECTOMY performed by Bob Oneal MD at [facility] OR COLONOSCOPY N/A 09/02/2023 Colonoscopy with Biopsy performed by Bob Oneal MD at [facility] OR SEPTOPLASTY SMALL INTESTINE SURGERY Family History Problem Relation Name Age of Onset No Known Problems Mother No Known Problems Father Heart Disease Maternal Grandfather Heart Disease Paternal Grandfather Thyroid Disease Paternal Grandfather Social History Socioeconomic History Marital status: Spouse name: Not on file Number of children: Not on file Years of education: Not on file Highest education level: Not on file Occupational History Not on file Tobacco Use Smoking status: Never Smokeless tobacco: Former Types: Snuff, Chew Quit date: 08/14/2020 Tobacco comments: counseled by Dr Rosenberg Vaping Use Vaping status: Never Used Substance and Sexual Activity Alcohol use: Yes Alcohol/week: 5.0 standard drinks of alcohol Types: 3 Cans of beer per week Comment: socially on weekends Drug use: Never Sexual activity: Yes Other Topics Concern Not on file Social History Narrative Not on file Social Determinants of Health Financial Resource Strain: Low Risk (07/27/2022) Received from [facility] Overall Financial Resource Strain (CARDIA) Difficulty of Paying Living Expenses: Not hard at all Food Insecurity: No Food Insecurity (07/27/2022) Received from [facility] Hunger Vital Sign Worried About Running Out of Food in the Last Year: Never true Ran Out of Food in the Last Year: Never true Transportation Needs: No Transportation Needs (07/27/2022) Received from [facility] PRAPARE - Transportation Lack of Transportation (Medical): No Lack of Transportation (Non-Medical): No Physical Activity: Not on file Stress: No Stress Concern Present (07/27/2022) Received from [facility] [employer] - Occupational Stress Questionnaire Feeling of Stress : Not at all Social Connections: Not on file Intimate Partner Violence: Not on file Housing Stability: High Risk (07/27/2022) Received from [facility], [facility] Housing Stability Vital Sign Unable to Pay for Housing in the Last Year: Yes Number of Places Lived in the Last Year: 1 In the last 12 months, was there a time when you did not have a steady place to sleep or slept in ashelter (including now)?: No Immunization History Administered Date(s) Administered DTaP-IPV (Kinrix) 05/05/1998 Dtap (Generic) 1994, 1994 Dtp (Generic) 1994, 07/20/1995, 05/05/1998 Fluarix (IIV4) 02/20/1999, 03/27/1999, 03/28/2000 HPV GARDASIL 9-VALENT 06/15/2023, 11/14/2023 HPV4 (Gardasil) 04/11/2013 Hepatitis A (Generic) 08/11/2007 Hepatitis A (Havrix 720 El.U) 04/11/2013 Hepatitis A Vaccine 08/11/2007 Hepatitis B Pediatric 1994, 1994, 1994 Hib (Generic) 1994, 1994, 1994, 07/20/1995 Hib (Generic;4 Dose) 1994, 1994, 07/20/1995 Hib 4 Dose Schedule 1994 Influenza 02/20/1999, 03/27/1999, 03/28/2000, 03/29/2007, 03/22/2008, 02/05/2009, 02/28/2012, 2013 Influenza Adult (Generic) 04/03/2013 MMR (MMRII) 04/27/1995, 05/05/1998 Meningococcal (Menactra) 04/11/2013 PFIZER COVID-19 (ORIGINAL FORMULATION, PURPLE CAP) mRNA, LNP-S, PF, 30 MCG/0.3 ML DOSE 08/28/2020, 09/20/2020 Pneumococcal (Pneumovax 23) 08/21/2021 Pneumococcal (Prevnar 13) 03/09/2023 Polio IPV (Ipol) 1994, 1994 Polio Ipv (Generic) 05/05/1998 Polio Opv (Generic) 1994, 07/20/1995, 05/05/1998 Tdap (Adacel) 11/14/2023 Tdap (Generic) 08/11/2007, 08/25/2013 Varicella (Varivax) 04/27/1995, 08/11/2007 Current Outpatient Medications Medication Sig Dispense Refill amLODIPine (NORVASC) 10 MG tablet Take 1 tablet (10 mg total) by mouth daily. 90 tablet 1 azelastine (ASTELIN) 0.1 % nasal spray USE 1 SPRAY IN EACH NOSTRIL TWICE DAILY DIRECTED 90 mL 1 Blood Glucose Monitoring Suppl ([employer] REFLECT) w/Device Kit 1 Units by Does [...] by mouth daily. 90 tablet 1 Lancets ([employer] DELICA PLUS [id number]) [facility] USE 1 LANCET TO PRICK FINGER TWICE DAILY BEFORE TESTING linaGLIPtin (TRADJENTA) 5 MG tablet Take 1 tablet (5 mg total) by mouth daily. 90 tablet 1 lisinopril (PRINIVIL) 10 MG tablet Take 1 tablet (10 mg total) by mouth daily. 90 tablet 1 montelukast (SINGULAIR) 10 MG tablet Take 1 tablet (10 mg total) by mouth nightly at bedtime. 30 tablet 6 mupirocin (BACTROBAN) 2 % ointment Apply topically 2 (two) times daily. Use on the scalp on the rash. 22 g 3 omeprazole (PRILOSEC) 40 MG capsule Take 1 capsule (40 mg total) by mouth daily. 90 capsule 1 pravastatin (PRAVACHOL) 40 MG tablet Take 1 tablet (40 mg total) by mouth nightly at bedtime. 90 tablet 1 sulfaSALAzine EC (AZULFIDINE EN) 500 MG tablet Take 1 tablet (500 mg total) by mouth 2 (two) times daily. 180 tablet 0 tretinoin (RETIN-A) 0.1 % cream Apply topically nightly at bedtime. 45 g 4 vilazodone (VIIBRYD) 10 MG tablet Take 1 tablet (10 mg total) by mouth daily. Take with food 30 tablet 5 TRUEplus Lancets 33G Misc (Patient not taking: Reported on 11/14/2023) No current facility-administered medications for this visit. Current Outpatient Medications on File Prior to Visit Medication Sig Blood Glucose Monitoring Suppl ([employer] VERIO REFLECT) w/Device Kit 1 Units by Does not apply route 2 (two) times daily. CPAP DEVICE, DME, Use daily when sleeping or taking a nap. Lancets ([employer] DELICA PLUS [id number]) Misc USE 1 LANCET TO PRICK FINGER TWICE DAILY BEFORE TESTING mupirocin (BACTROBAN) 2 % ointment Apply topically 2 (two) times daily. Use on the scalp on the rash. sulfaSALAzine EC (AZULFIDINE EN) 500 MG tablet Take 1 tablet (500 mg total) by mouth 2 (two) times daily. TRUEplus Lancets 33G Misc (Patient not taking: Reported on 11/14/2023) No current facility-administered medications on file prior to visit. Review of patient's allergies indicates: No Known Allergies Objective: Filed Vitals: 11/14/23 1458 BP: 121/81 Pulse: 96 Resp: 18 Temp: 98.1 ??F (36.7 ??C) TempSrc: Temporal SpO2: 97% Weight: 115.9 kg (255 lb 9.6 oz) Height: 1.803 m (5' 11 ) Physical Exam Constitutional: General: He is not in acute distress. Appearance: He is not ill-appearing, toxic-appearing or diaphoretic. HENT: Head: Normocephalic and atraumatic. Right Ear: Tympanic membrane, ear canal and external ear normal. There is no impacted cerumen. Left Ear: Tympanic membrane and external ear normal. Nose: Nose normal. No congestion. Mouth/Throat: Mouth: Mucous membranes are moist. Pharynx: Oropharynx is clear. No oropharyngeal exudate. Eyes: General: No scleral icterus. Right eye: No discharge. Left eye: No discharge. Conjunctiva/sclera: Conjunctivae normal. Pupils: Pupils are equal, round, and reactive to light. Neck: Thyroid: No thyromegaly. Vascular: No carotid bruit or JVD. Trachea: No tracheal deviation. Cardiovascular: Rate and Rhythm: Normal rate and regular rhythm. Pulses: Normal pulses. Heart sounds: Normal heart sounds. No murmur heard. No friction rub. No gallop. Pulmonary: Effort: Pulmonary effort is normal. No respiratory distress. Breath sounds: Normal breath sounds. No stridor. No wheezing or rales. Chest: Chest wall: No tenderness. Abdominal: General: Bowel sounds are normal. There is no distension. Palpations: Abdomen is soft. There is no mass. Tenderness: There is no abdominal tenderness. There is no right CVA tenderness, left CVA tenderness, guarding or rebound. Hernia: No hernia is present. Musculoskeletal: General: No swelling, tenderness, deformity or signs of injury. Normal range of motion. Cervical back: Normal range of motion and neck supple. No rigidity or tenderness. Right lower leg: No edema. Left lower leg: No edema. Lymphadenopathy: Cervical: No cervical adenopathy. Skin: General: Skin is warm. Coloration: Skin is not jaundiced or pale. Findings: No bruising, erythema, lesion or rash. Neurological: Mental Status: He is alert and oriented to person, place, and time. Cranial Nerves: No cranial nerve deficit. Sensory: No sensory deficit. Motor: No weakness or abnormal muscle tone. Coordination: Coordination normal. Gait: Gait is intact. Gait normal. Deep Tendon Reflexes: Reflexes are normal and symmetric. Reflexes normal. Psychiatric: Mood and Affect: Affect normal. Cognition and Memory: Memory normal. Judgment: Judgment normal. Assessment & Plan: Chuck was seen today for physical, hypertension, hyperlipidemia, rash, depression, anxiety and gerd. Diagnoses and all orders for this visit: Annual physical exam Reviewed with the patient BMI, blood pressure, diet, exercise, and encouraged healthy lifestyle choices. Screened for substance use, risk factors for STIs, diet and exercise habits, and symptoms of depression. Emphasized normal blood pressure of < 140/90 and lipid and diabetes screening for all men > 35 or for men 20-34 with risk factors. Recommended US screening for AAA for all men 65-75 who have ever smoked. Recommended prostate screening. Colon screening starting at 45. Recommended preventive immunizations according to age. - URINALYSIS AUTO DIP - HEMOGLOBIN, GLYCOSYLATED; Future - TSH W/REFLEX; Future - LIPID PANEL; Future - COMPREHENSIVE METABOLIC PANEL; Future - CBC W/DIFF AUTOMATED; Future - VENIPUNC ARM DRAW - Checking microalbumin General medical exam - Patient past medical, surgical, family history and social history updated. Allergies, immunizations and medications updated. Also did discuss healthy lifestyle including exercising, dietary changes and safe sexual practices as well as safe habits common to patient age group including wearing seat belt when transporting in a vehicle and limiting alcohol and avoiding smoking/second hand smoking. Patient will set up [facility]. Patient will fax over any remaining outside records that would be relevant to care provided. - URINALYSIS AUTO DIP - HEMOGLOBIN, GLYCOSYLATED; Future - TSH W/REFLEX; Future - LIPID PANEL; Future - COMPREHENSIVE METABOLIC PANEL; Future - CBC W/DIFF AUTOMATED; Future - VENIPUNC ARM DRAW - Checking microalbumin Screening for diabetes mellitus - HEMOGLOBIN, GLYCOSYLATED; Future Screening for hyperlipidemia - LIPID PANEL; Future Screening for hypothyroidism - TSH W/REFLEX; Future Type 2 diabetes mellitus with hyperglycemia, without long-term current use of insulin ([facility]) - Controlled and stable - - Compliant with medication regimen without significant side effects: yes - Recent blood glucose readings and hemoglobin A1C are at goal: yes - Urine microalbumin completed within last year or ordered today: yes - Lipid panel and treatment assessed recently or ordered today: yes - Blood pressure control and treatment adequate: yes - Routine eye examination done in the last year or ordered today: yes - Diabetic foot exam done today?: yes Visual: no ulceration Sensory: normal monofilament testing Pulses: normal bilaterally - Diabetic education assessed. - Influenza vaccination discussed as indicated during flu season. - Pt has received pneumovax vaccine or was discussed today yes -Continue with linaGLIPtin (TRADJENTA) 5 MG tablet; Take 1 tablet (5 mg total) by mouth daily. - Ambulatory Referral to Ophthalmology Gastroesophageal reflux disease without esophagitis - Stable symptoms. Having more constipation on pantoprazole -Changed her omeprazole (PRILOSEC) 40 MG capsule; Take 1 capsule (40 mg total) by mouth daily. Hypertension associated with type 2 diabetes mellitus ([facility]) - Controlled - Patient currently controlled on current treatment for hypertension. Will continue. Continued to discuss weight loss, adequate cardiovascular fitness. DASH diet was discussed as well as decrease in sodium intake. BP goal of < 140/90 expressed. - Lifestyle modification including dietary changes to include less saturated fats, lean meat, more vegetables and exercise at least 30 min every day. - Continue lisinopril (PRINIVIL) 10 MG tablet; Take 1 tablet (10 mg total) by mouth daily. - Continue amLODIPine (NORVASC) 10 MG tablet; Take 1 tablet (10 mg total) by mouth daily. Mild episode of recurrent major depressive disorder (CMS/HCC) -Stable though not optimally controlled ; patient did not do well on higher dosing of Wellbutrin and has since self decreased to 75 mg twice daily - I personally reviewed PHQ-9 and KANCHAN-7 scores with patient today and explained the meaning of patient's scores to patient. Patient is currently uncontrolled. I counseled for about 3 minutes on strategies including stress management, sleep hygiene, balanced diet, regular physical activity includingaerobic exercise, weight reduction, activity pacing, maintenance of overall health lifestyle, medication compliance and the need for close follow up. Comorbidities including depression, anxiety currently being managed. Active nonpharmacological therapies including supervised and graded exercise program as well as cognitive behavioral interventions discussed as well. Based on patient scores today,I have discussed with patient the plan as outlined below. - Refill sent for buPROPion (WELLBUTRIN) 75 MG tablet; Take 1 tablet (75 mg total) by mouth 2 (two)times daily. - Add vilazodone (VIIBRYD) 10 MG tablet; Take 1 tablet (10 mg total) by mouth daily. Take with food - Follow-up in 4 weeks Folliculitis - Failed clindamycin. He continues on mupirocin. For now, patient cannot do antibiotics given his underlining gastrointestinal symptoms and concerns about development of C. difficile if he is placed on daily antibiotics. He also has significant GERD symptoms and will avoid daily doxycycline. Close follow-up 4 weeks -Sending prescription for Chlorhexidine Gluconate 2 % Solution; Use twice daily for rash. Acne vulgaris - Sent prescription for tretinoin (RETIN-A) 0.1 % cream; Apply topically nightly at bedtime. Mixed hyperlipidemia - Stable and compliant - pravastatin (PRAVACHOL) 40 MG tablet; Take 1 tablet (40 mg total) by mouth nightly at bedtime. - ezetimibe (ZETIA) 10 MG tablet; Take 1 tablet (10 mg total) by mouth daily. Essential hypertension, benign - Controlled - lisinopril (PRINIVIL) 10 MG tablet; Take 1 tablet (10 mg total) by mouth daily. - amLODIPine (NORVASC) 10 MG tablet; Take 1 tablet (10 mg total) by mouth daily. Hyperlipidemia due to type 2 diabetes mellitus ([facility]) - Continue pravastatin (PRAVACHOL) 40 MG tablet; Take 1 tablet (40 mg total) by mouth nightly at bedtime. Need for iomrmvvazu-navchtz-rdlcpcujr (Tdap) vaccine - [39693] Adacel (Tdap) Need for prophylactic vaccination against human papillomavirus - [72091] Gardasil 9 (HPV) Environmental allergies - Stable symptoms -Continue montelukast (SINGULAIR) 10 MG tablet; Take 1 tablet (10 mg total) by mouth nightly at bedtime. Allergic rhinitis, unspecified seasonality, unspecified trigger - Stable - Continue azelastine (ASTELIN) 0.1 % nasal spray; USE 1 SPRAY IN EACH NOSTRIL TWICE DAILY DIRECTED I personally spent a total of 50 minutes on the day of the encounter. This includes trxe-yh-ymow and ozl-oacj-po-face time I provided on the day of the encounter & excludes time spent performing separately reportable services. DRAGON: This dictation was at least in part performed using [employer] and there may be some inherent flaws in this supervisor records change due to the nature of this program. MD Pankaj QUEVEDO MD Internal Medicine [facility] documented in this encounter Plan of Treatment Upcoming Encounters Date Type Department Care Team (Late st Contact Info) Description 05/15/2024 3:30 PM RADIOLOGICAL ENGINEER Appointment [facility] [place] [address] [place] [address] [place] [address] 05/25/2024 12:45 PM RADIOLOGICAL ENGINEER Office Visit [facility] Physical Therapy [address] [address] Pankaj Rosenberg MD [address] [address] Maya Magaña, [place] [address] 05/30/2024 3:40 PM RADIOLOGICAL ENGINEER Office Visit [facility] Medical [facility] Multispecialty [facility] [place] [address] [address] [place] [address] Pankaj Rosenberg MD [facility]ly [facility] [address] 06/20/2024 3:40 PM RADIOLOGICAL ENGINEER [facility] [place] [address] [address] [place] [address] Pankaj Rosenberg MD [address] [address] 06/21/2024 1:00 PM RADIOLOGICAL ENGINEER Office Visit [facility] Medical Group [facility] [place] [address] [place] [address] Jose Ratliff MD [address] [place] [address] 03/27/2025 1:00 PM RADIOLOGICAL ENGINEER Office Visit [facility] Medical [facility] Multispecialty Care - [facility] 3 [facility] [address] [place] [id number] Bob Oneal MD 3 [facility] [address] [place] [address] Scheduled Referrals Name Type Priority Associated Diagnoses Orde r Schedule Ambulatory Referral to Ophthalmology Referral Routine Type 2 diabetes mellitus with hyperglycemia, without long-term current use of insulin ([facility]) Ordered: 11/14/2023 documented as of this encounter Procedures Procedure Name Priority Date/Time Associated Diagnosis Comments VENIPUNC ARM DRAW Routine 11/14/2023 3:4 1 PM CDT Annual physical exam General medical exam URINALYSIS AUTO DIP Routine 11/14/2023 Annual physical exam General medical exam ALBUMIN URINE RANDOM W/CREATININE Routine 11/14/2023 Type 2 diabetes mellitus with hyperglycemia, without long-term current use of insulin ([facility]) documented in this encounter Results * (ABNORMAL) CBC W/DIFF AUTOMATED (11/30/2023 9:12 AM CDT) WBC 6.20 4.00 - 10.80 x10'3/uL 11/30/2023 4:27 PM [facility] RBC 5.14 4.50 - 6.10 x10'6/uL 11/30/2023 4:27 PM CDT [facility] HGB 13.7 13.0 - 18.0 G/DL 11/30/2023 4:27 PM CDT [facility] HCT 42.5 37.0 - 52.0 % 11/30/2023 4:27 PM CDT [facility] MCV 82.7 78.0 - 100.0 FL 11/30/2023 4:27 PM CDT [facility] MCH 26.7(L) 27.0 - 31.0 PG 11/30/2023 4:27 PM CDT [facility] MCHC 32.2(L) 33.0 - 36.0 G/DL 11/30/2023 4:27 PM CDT [facility] RDW 13.7 11.5 - 14.5 % 11/30/2023 4:27 PM CDT [facility] PLT 330 150 - 350 x10'3/uL 11/30/2023 4:27 PM CDT [facility] MPV 10.4 7.4 - 10.4 FL 11/30/2023 4:27 PM CDT [facility] DIFFERENTIAL TYPE AUTOMATED DIFFERENTIAL 11/30/2023 4:27 PM CDT [facility] NEUTROPHILS % 61.6 % 11/30/2023 4:27 PM CDT [facility] LYMPHOCYTES % 26.1 % 11/30/2023 4:27 PM CDT [facility] MONOCYTES % 9.0 % 11/30/2023 4:27 PM CDT [facility] EOSINOPHILS % 2.3 % 11/30/2023 4:27 PM CDT [facility] BASOPHILS % 0.5 % 11/30/2023 4:27 PM CDT [facility] IMMATURE GRANS % 0.5 % 11/30/2023 4:27 PM CDT [facility] ABS. NEUTROPHILS 3.82 1.60 - 8.30 x10'3/uL 11/30/2023 4:27 PM CDT [facility] ABS. LYMPHOCYTES 1.62 0.80 - 4.70 x10'3/uL 11/30/2023 4:27 PM CDT [facility] ABS. MONOCYTES 0.56 0.00 - 1.50 x10'3/uL 11/30/2023 4:27 PM CDT [facility] ABS. EOSINOPHILS 0.14 0.00 - 0.40 x10'3/uL 11/30/2023 4:27 PM CDT [facility] ABS. BASOPHILS 0.03 0.00 - 0.20 x10'3/uL 11/30/2023 4:27 PM CDT [facility] ABS. IMMATURE GRANULOCYTES 0.03 0.00 - 0.03 x10'3/uL 11/30/2023 4:27 PM CDT [facility] 11/30/2023 9:12 AM CDT Pankaj Rosenberg MD LABORATORY Final Result -[facility] [address] [place] [address], * (ABNORMAL) COMPREHENSIVE METABOLIC PANEL (11/30/2023 9:12 AM CDT) [facility] SODIUM S/P/B 138 136 - 145 MMOL/L 11/30/2023 3:42 PM CDT -[facility] POTASSIUM S/P/B 4.6 3.5 - 5.1 MMOL/L 11/30/2023 3:42 PM CDT -[facility] CHLORIDE S/P/B 102 98 - 107 MMOL/L 11/30/2023 3:42 PM CDT -[facility] CO2 26.6 21 - 32 MMOL/L 11/30/2023 3:42 PM CDT -[facility] GLUCOSE 108(H) 70 - 99 MG/DL 11/30/2023 3:42 PM CDT [facility] BUN 14 7 - 18 MG/DL 11/30/2023 3:42 PM CDT -[facility] CREATININE S/P/B 0.85 0.70 - 1.30 MG/DL 11/30/2023 3:42 PM CDT [facility] CALCIUM S/P/B 9.1 8.4 - 10.5 MG/DL 11/30/2023 3:42 PM CDT [facility] BILIRUBIN TOTAL S/P/B 0.5 0.2 - 1.0 MG/DL 11/30/2023 3:42 PM CDT [facility] ALKALINE PHOSPHATASE S/P/B 115 45 - 115 U/L 11/30/2023 3:42 PM CDT [facility] AST 19 15 - 37 U/L 11/30/2023 3:42 PM CDT [facility] ALT 55 16 - 63 U/L 11/30/2023 3:42 PM CDT [facility] TOTAL PROTEIN S/P/B 7.8 6.4 - 8.2 G/DL 11/30/2023 3:42 PM T [facility] ALBUMIN S/P/B 3.8 3.4 - 5.0 G/DL 11/30/2023 3:42 PM CDT [facility] ANION GAP 9.4 5 - 15 MMOL/L 11/30/2023 3:42 PM CDT [facility] Comment:REFERENCE RANGE NOT ESTABLISHED OSMOLALITY (CALC) 287 MOSM/KG 024 3:42 PM T [facility] Comment:REFERENCE RANGE NOT ESTABLISHED GFR ESTIMATE >90 >90 ML/MIN/1. 73 M2 11/30/2023 3:42 PM CDT [facility] GFR NOTES GFR REFERENCE S: 11/30/2023 3:42 PM T [facility] Comment: THE ESTIMATED GFR IS CALCULATED USING THE 2020 CKD-EPI EQUATION. THE FOLLOWING CATEGORIES FOR GRADING RENAL FUNCTION ARE RECOMMENDED BY THE INTERNATIONAL SOCIETY OF NEPHROLOGY (KDIGO 2012 CLINICAL PRACTICE GUIDELINE). G1,NORMAL OR HIGH: >89 ml/min/1.73 m2 G2,MILDLY DECREASED: 60-89 ml/min/1.73 m2 G3A,MILDLY TO MODERATELY DECREASED: 45-59 ml/min/1.73 m2 G3B,MODERATELY TO SEVERELY DECREASED: 30-44 ml/min/1.73 m2 G4,SEVERELY DECREASED: 15-29 ml/min/1.73 m2 G5,KIDNEY FAILURE: <15 ml/min/1.73 m2 11/30/2023 9:12 AM CDT us Pankaj Rosenberg MD LABORATORY Final Result -[facility] [address] [place] [address], * (ABNORMAL) LIPID PANEL (11/30/2023 9:12 AM CDT) CHOLESTEROL 146 <200 MG/DL 11/30/2023 3:42 PM CDT [facility] TRIGLYCERIDES 131 <150 MG/DL 11/30/2023 3:42 PM CDT [facility] HDL 39(L) >40 MG/DL 11/30/2023 3:42 PM CDT [facility] LDL-C 81 <100 MG/DL 11/30/2023 3:42 PM CDT [facility] VLDL CALCULATION 26 5 - 28 MG/DL 11/30/2023 3:42 PM CDT [facility] CHOL/HDL RATIO 3.7 0.0 - 4.0 11/30/2023 3:42 PM CDT [facility] LDL/HDL 2.1 0.41 - 2.13 11/30/2023 3:42 PM CDT [facility] NON HDL CHOLESTEROL 107 <140 MG/DL 11/30/2023 3:42 PM CDT [facility] 11/30/2023 9:12 AM CDT Pankaj Rosenberg MD LABORATORY Final Result [facility] [address] [place] [address], * TSH W/REFLEX (11/30/2023 9:12 AM CDT) TSH 1.753 0.358 - 3.740 uIU/ML 11/30/2023 3:42 PM CDT [facility] 11/30/2023 9:12 AM CDT Pankaj Rosenberg MD LABORATORY Final Result Performing Organization Address City/[facility]/ZIP Co de Phone Number [facility] [address] [place] [address], [place] [phone] * (ABNORMAL) HEMOGLOBIN, GLYCOSYLATED (11/30/2023 9:12 AM CDT) HGB A1C 6.0 4.5 - 6.2 % 11/30/2023 7:35 PM CDT [facility] ESTIMATED AVG GLUCOSE 126(H) 74 - 106 MG/DL 11/30/2023 7:35 PM CDT [facility] 11/30/2023 9:12 AM CDT Pankaj Rosenberg MD LABORATORY Final Result Performing Organization Address [facility] Co de Phone Number [facility] [address] [place] [address], [place] [phone] * ALBUMIN URINE RANDOM W/CREATININE (11/14/2023) MICROALBUMIN (U) 10 MG- [address], [place] CREATININE RANDOM (U) 100 MG-[address], [place] MICROALB/CREAT <30 MG-[address], [place] URINE SPECIMEN / Unknown 11/14/2023 Pankaj Rosenberg MD URINE ORDERABLES Final Result Performing Organization Address City/[facility]/ZIP Co de Phone Number MG-[address], [place] [address] [place] [address], [place] [phone] * URINALYSIS AUTO DIP (11/14/2023) COLOR (U) DARK YELLOW YELLOW MG[address], [facility] TRANSPARENCY CLEAR CLEAR MG-[address], [facility] GLUCOSE (U) NEGATIVE NEGATIVE MG/DL MG-[address], [facility] BILIRUBIN (U) NEGATIVE NEGATIVE MG-[address], [facility] KETONES MG/DL (U) NEGATIVE NEGATIVE MG/DL MG-[address], [facility] SPECIFIC GRAVITY (U) 1.020 1.001 - 1.035 MG[address], [facility] BLOOD (U) NEGATIVE NEGATIVE MG-[address], [facility] U PH 6.5 5.0 - 9.0 MG-[address], [facility] PROTEIN (U) NEGATIVE NEGATIVE mg/dL MG-[address], [facility] UROBILINOGEN 1.0 0.2 - 1.0 EU/dL = mg/dL MG-[address], [facility] NITRITES NEGATIVE NEGATIVE MG/DL MG-[address], [facility] LEUKOCYTES (U) NEGATIVE NEGATIVE MG-[address], [place] URINE SPECIMEN OBTAINED BY CLEAN CATCH PROCEDURE / Unknown 11/14/2023 Pankaj Rosenberg MD URINE ORDERABLES Final Result [address], [facility] [address] [place] [address], [place] [phone] documented in this encounter Visit Diagnoses Diagnosis Annual physical exam- Primary Routine general medical examination at a health care facility General medical exam Unspecified general medical examination Screening for diabetes mellitus Screening for hyperlipidemia Screening for lipoid disorders Screening for hypothyroidism Screening for thyroid disorder Type 2 diabetes mellitus with hyperglycemia, without long-term current use of insulin ([facility]) Gastroesophageal reflux disease without esophagitis Esophageal reflux Hypertension associated with type 2 diabetes mellitus ([facility]) Mild episode of recurrent major depressive disorder ([facility]) Folliculitis Other specified disease of hair and hair follicles Acne vulgaris Other acne Mixed hyperlipidemia Essential hypertension, benign Hyperlipidemia due to type 2 diabetes mellitus ([facility]) Need for xwowcmdron-dcctikx-qeinobgsz (Tdap) vaccine Need for prophylactic vaccination with combined lkqhbnylcz-wowvclt-ibwvtxvnn (DTP) vaccine Need for prophylactic vaccination against human papillomavirus Need for prophylactic vaccination and inoculation against other viral diseases Environmental allergies Allergic rhinitis, cause unspecified Allergic rhinitis, unspecified seasonality, unspecified trigger documented in this encounter Additional Health Concerns Assessment Noted Time PHQ-9 Depression Total Score: 4 06/15/19 24 9:40 AM RADIOLOGICAL ENGINEER documented as of this encounter Care Teams Lead Handler Relationship Specialty Start Date End Date Pankaj Rosenberg MD [address] [address] PCP - General INTERNAL MEDICINE 06/15/21 documented as of this encounter
--- OUTSIDE RECORDS SUMMARY | 2024-05-13 10:44 | XMS_ITS | Encounter Summary ---
Author Organization [facility] Address [address] [place] [address]. [place], [place] [address] [place] [address] Care Team Providers Care Strategic Planning Analyst Name Role Phone Pankaj Rosenberg MD Primary Care Provider [phone] Encounter Details Date Type Department Care Team (Latest Contact Info) Description 06/15/2023 - 06/15/2023 11:59 PM NATURAL SCIENCES PROFESSOR Hospital Encounter [facility] [address] [place] [address] Pankaj Rosenberg MD [address] [facility] [address] [place] [address] Discharge Disposition: Home or Self Care (Routine Discharge) Social History Tobacco Use Types Packs/Day Years [...] on file Legal Sex Male 2:58 PM NATURAL SCIENCES PROFESSOR Gender Identity Male 07/13/2021 5:19 AM NATURAL SCIENCES PROFESSOR Sexual Orientation Straight 07/13/2021 5: 19 AM NATURAL SCIENCES PROFESSOR documented as of this encounter Medications at Time of Discharge Blood Glucose Monitoring Suppl (ONETOUCH VERIO REFLECT) w/Device Kit 1 Units by Does not apply route 2 (two) times daily. 09/16/2021 CPAP DEVICE, DME,Indications:KARRIE (obstructive sleep apnea) Use daily when sleeping or taking a nap. 1 Device 08/21/2021 Lancets (ONETOUCH DELICA PLUS [id number]) [facility] USE 1 LANCET TO PRICK FINGER TWICE DAILY BEFORE TESTING 09/16/2021 mupirocin (BACTROBAN) 2 % ointmentIndications: Dermatitis Apply topically 2 (two) times daily. Use on the scalp on the rash. 22 g 3 11/24/2022 TRUEplus Lancets 33G Misc 09/16/2021 amLODIPine (NORVASC) 10 MG tabletIndications:Es sential hypertension, benign,Hypertension associated with type 2 diabetes mellitus (CMS/HCC HHS/HCC) Take 1 tablet (10 mg total) by mouth daily. 90 tablet 1 03/09/2023 4 azelastine (ASTELIN) 0.1 % nasal sprayIndications:All ergic rhinitis, unspecified seasonality, unspecified trigger USE 1 SPRAY IN EACH NOSTRIL TWICE DAILY DIRECTED 90 mL 1 11/24/2022 4 buPROPion SR (WELLBUTRIN SR) 150 MG 12 hr tabletIndications:Re current major depressive disorder, remission status unspecified ([facility]) Take 1 tablet (150 mg total) by mouth 2 (two) times daily. 180 tablet 1 06/15/2023 4 chlorhexidine (HIBICLENS) 4 % LiquidIndications:Fo lliculitis Apply topically daily as needed. 3790 mL 1 06/15/2023 4 clindamycin (CLEOCIN T) 1 % external solutionIndications: Folliculitis Apply topically 2 (two) times daily. 180 mL 2 06/15/2023 4 doxycycline hyclate (VIBRAMYCIN) 100 MG capsuleIndications:F olliculitis Take 1 capsule (100 mg total) by mouth 2 (two) times daily for 7 days. 14 capsule 06/15/2023 4 ezetimibe (ZETIA) 10 MG tabletIndications:Mi xed hyperlipidemia Take 1 tablet (10 mg total) by mouth daily. 90 tablet 1 06/02/2023 4 lisinopril (PRINIVIL) 10 MG tabletIndications:Es sential hypertension, benign,Hypertension associated with type 2 diabetes mellitus ([facility]/HCC HHS/HCC) Take 1 tablet (10 mg total) by mouth daily. 90 tablet 1 03/09/2023 4 montelukast (SINGULAIR) 10 MG tabletIndications:En vironmental allergies,Allergic rhinitis, unspecified seasonality, unspecified trigger Take 1 tablet (10 mg total) by mouth nightly at bedtime. 30 tablet 6 03/09/2023 4 omeprazole (PRILOSEC) 40 MG capsuleIndications:G astroesophageal reflux disease without esophagitis Take 1 capsule (40 mg total) by mouth daily. 90 capsule 1 06/03/2023 4 pravastatin (PRAVACHOL) 40 MG tabletIndications:Mi xed hyperlipidemia,Hyper lipidemia due to type 2 diabetes mellitus ([facility]/HCC HHS/HCC) Take 1 tablet (40 mg total) by mouth nightly at bedtime. 90 tablet 1 03/09/2023 4 SITagliptin (JANUVIA) 25 mg TabIndications:Type 2 diabetes mellitus with hyperglycemia, without long-term current use of insulin ([facility]/HCC HHS/HCC) Take 1 tablet (25 mg total) by mouth daily. 90 tablet 1 03/09/2023 4 documented as of this encounter Plan of Treatment Upcoming Encounters Date Type Department Care Team (Late st Contact Info) Description 05/15/2024 3:30 PM NATURAL SCIENCES PROFESSOR Appointment [facility] [address] Pankaj Rosenberg MD [address] [place] [address] 05/25/2024 12:45 PM NATURAL SCIENCES PROFESSOR Office Visit [facility] Physical Therapy [address] [place] [address] Pankaj Rosenberg MD [address] [place] [address] Maya Magaña, [place] [address] 05/30/2024 3:40 PM NATURAL SCIENCES PROFESSOR Office Visit [facility] Multispecialty [facility] [place] [address] [address] [place] [address] Pankaj Rosenberg MD [address] [address] 06/20/2024 3:40 PM NATURAL SCIENCES PROFESSOR [facility] [place] [address] [address] [place] [address] Pankaj Rosenberg MD [address] [address] 06/21/2024 1:00 PM NATURAL SCIENCES PROFESSOR Office Visit [facility] Orthopedic & Sports Medicine - [place] [address] [place] [address] Jose Ratliff MD [id number] [place] [address] 03/27/2025 1:00 PM NATURAL SCIENCES PROFESSOR Office Visit [facility] Multispecialty Care - [facility] [address] [facility], [address] [place] [address] Bob Oneal MD 3 [facility] [address] [place] [address] documented as of this encounter Visit Diagnoses Not on filedocumented in this encounter Additional Health Concerns Assessment Noted Time PHQ-9 Depression Total Score: 4 06/15/19 24 9:40 AM NATURAL SCIENCES PROFESSOR documented as of this encounter Care Teams Strategic Planning Analyst Relationship Specialty Start Date End Date Pankaj Rosenberg MD [facility] [address] [address] PCP - General INTERNAL MEDICINE 06/15/21 documented as of this encounter
--- OUTSIDE RECORDS SUMMARY | 2024-05-13 10:44 | XMS_ITS | Encounter Summary ---
Author Organization [facility] Address [address] [place] [address]. [place] [address] [place] [address] Care Team Providers Care Cook Night Name Role Phone Pankaj Rosenberg MD Primary Care Provider [phone] Reason for Visit * Auth/Cert (Routine) Specialty Diagnoses / Procedures Referred By Contac t Referred To Contact Diagnoses Generalized abdominal pain Rectal bleeding Epigastric pain Constipation, unspecified constipation type SBO (small bowel obstruction) (CMS/HCC HHS/HCC) Polyp of gallbladder Nausea and vomiting, unspecified vomiting type Change in bowel function Abdominal pain, rectal bleeding, constipation Procedures UPPER GI ENDOSCOPY,DIAGNOSIS COLONOSCOPY,DIAGNOSTIC EGD COLONOSCOPY DIAGNOSTIC WITH/WITHOUT SPECIMEN BRUSH/WASH Mario Oneal MD [address] [place] [address] Phone: tel: fax: Referral ID Status Reason Start Date Expiration Date Visits Re quested Visits Authorized [id number] 1 1 Encounter Details Date Type Department Care Team (Late st Contact Info) Description 09/02/2023 11:06 AM CDT - 09/02/2023 11:47 AM CDT Surgery [facility] [address] [place] [address] Mario Oneal MD [address] [place] [address] [phone] Upper Endoscopy with Biopsy Surgery Details Date/Time Status Location OR Service Patient Class Case Class Case Type Trauma Case? 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 Gender Identity Male 07/13/2021 5:19 AM LOCKSTITCHER Sexual Orientation Straight 07/13/2021 5 :19 AM LOCKSTITCHER documented as of this encounter Last Filed Vital Signs Vital Sign Reading Time Taken Comments Blood Pressure 127/78 09/02/2023 11:21 AM CDT Pulse 89 09/02/2023 11:21 AM CDT Temperature 37.1 ??C (98.8 ??F) 09/02/2023 11:21 AM C DT Respiratory Rate 18 09/02/2023 11:21 AM CDT Oxygen Saturation 97% 09/02/2023 11:21 AM CDT Inhaled Oxygen Concentration - - Weight 114.8 kg (253 lb) 08/22/2023 10:40 AM CDT Height 180.3 cm (5' 11 ) 08/22/2023 10:40 AM CDT Body Mass Index 35.29 08/22/2023 10:40 AM CDT documented in this encounter Discharge Instructions * Attachments The following attachments cannot be sent through Care Everywhere. * Upper GI Endoscopy Discharge Instructions (Swiss) * Colonoscopy Discharge Instructions (Swiss) * Moderate Sedation in Adults Discharge Instructions (Swiss) documented in this encounter Medications at Time of Discharge Blood Glucose Monitoring Suppl (Eons VERIO REFLECT) w/Device Kit 1 Units by Does not apply route 2 (two) times daily. 09/16/2021 CPAP DEVICE, DME,Indications:KARRIE (obstructive sleep apnea) Use daily when sleeping or taking a nap. 1 Device 08/21/2021 Lancets (ONETOUCH DELICA PLUS [id number]) [facility] USE 1 LANCET TO PRICK FINGER TWICE DAILY BEFORE TESTING 09/16/2021 mupirocin (BACTROBAN) 2 % ointmentIndications: Dermatitis Apply topically 2 (two) times daily. Use on the scalp on the rash. 22 g 3 11/24/2022 TRUEplus Lancets 33G Misc 09/16/2021 amLODIPine (NORVASC) 10 MG tabletIndications:Es sential hypertension, benign,Hypertension associated with type 2 diabetes mellitus ([facility] H[facility]) Take 1 tablet (10 mg total) by mouth daily. 90 tablet 1 03/09/2023 4 azelastine (ASTELIN) 0.1 % nasal sprayIndications:All ergic rhinitis, unspecified seasonality, unspecified trigger USE 1 SPRAY IN EACH NOSTRIL TWICE DAILY DIRECTED 90 mL 1 11/24/2022 4 buPROPion SR (WELLBUTRIN SR) 150 MG 12 hr tabletIndications:Re current major depressive disorder, remission status unspecified ([facility]) Take 1 tablet (150 mg total) by mouth 2 (two) times daily. 180 tablet 1 06/15/2023 4 chlorhexidine (HIBICLENS) 4 % LiquidIndications:Fo lliculitis Apply topically daily as needed. 3790 mL 1 06/15/2023 4 clindamycin (CLEOCIN T) 1 % external solutionIndications: Folliculitis Apply topically 2 (two) times daily. 180 mL 2 06/15/2023 4 ezetimibe (ZETIA) 10 MG tabletIndications:Mi xed hyperlipidemia Take 1 tablet (10 mg total) by mouth daily. 90 tablet 1 06/02/2023 4 linaGLIPtin (TRADJENTA) 5 MG tabletIndications:Ty pe 2 diabetes mellitus with hyperglycemia, without long-term current use of insulin ([facility] HHS/HCC) Take 1 tablet (5 mg total) by mouth daily. 90 tablet 06/21/2023 4 lisinopril (PRINIVIL) 10 MG tabletIndications:Es sential hypertension, benign,Hypertension associated with type 2 diabetes mellitus (CMS/HCC HHS/HCC) Take 1 tablet (10 mg total) by mouth daily. 90 tablet 1 03/09/2023 4 montelukast (SINGULAIR) 10 MG tabletIndications:En vironmental allergies,Allergic rhinitis, unspecified seasonality, unspecified trigger Take 1 tablet (10 mg total) by mouth nightly at bedtime. 30 tablet 6 03/09/2023 4 pantoprazole EC (PROTONIX) 40 MG tabletIndications:Ga stroesophageal reflux disease without esophagitis Take 1 tablet (40 mg total) by mouth daily. 90 tablet 1 07/18/2023 4 pravastatin (PRAVACHOL) 40 MG tabletIndications:Mi xed hyperlipidemia,Hyper lipidemia due to type 2 diabetes mellitus (CMS/HCC HHS/HCC) Take 1 tablet (40 mg total) by mouth nightly at bedtime. 90 tablet 1 03/09/2023 4 documented as of this encounter Progress Notes * Mario Oneal MD - 09/02/2023 1:00 PM CDT Your biopsies of the small bowel show no significant pathology. It is negative. * Gloria Chaves RN - 09/02/2023 12:[address] Oneal in room speaking with patient documented in this encounter H&P Notes * Mario Oneal MD - 09/02/2023 11:46 AM CDT GASTROENTEROLOGY H&P 09/02/2023 11:46 AM Reason for Consult: Abdominal burning. History of Present Illness: Sheri Barlow is a 28-year-old has had bowel obstruction x 4 requiring an operation. Cholecystectomy last year. Review of systems: General: no fever, chills, malaise, fatigue, weight loss or gain. HEENT: no acute changes in vision or hearing Respiratory: no shortness of breath, cough, sputum production, hemoptysis Cardiovascular: no chest pain, palpitations, orthopnea Gastrointestinal: as per HPI Genitourinary: no dysuria, hematuria, incontinence Musculoskeletal: no extremity edema, myalgia. Neuro: no dizziness, headache, seizures Hematology: no easy bruising, bleeding Skin: no new skin rashes or lesions. Patient Active Problem List Diagnosis Mixed hyperlipidemia Traumatic brain injury ([facility]) Nonalcoholic steatohepatitis Gallbladder polyp Fracture of spinous process of cervical vertebra ([facility]) Essential hypertension, benign Deviated nasal septum Allergic rhinitis Arthrogryposis Type 2 diabetes mellitus with hyperglycemia, without long-term current use of insulin ([facility]) Gastroesophageal reflux disease without esophagitis Nausea and vomiting, unspecified vomiting type Change in bowel function Epigastric burning sensation KARRIE (obstructive sleep apnea) History of gastroschisis Hypertrophy of nasal turbinates S/P exploratory laparotomy S/P small bowel resection Generalized abdominal pain Rectal bleeding Epigastric pain Constipation, unspecified constipation type SBO (small bowel obstruction) ([facility]) Polyp of gallbladder Past Medical History: Diagnosis Date Allergy Arthrogryposis Diabetes mellitus ([facility]) Hyperlipidemia Hypertension Obstructive sleep apnea Personal history of (corrected) gastroschisis Past Surgical History: Procedure Laterality Date APPENDECTOMY as a baby along with gastroschisis COLONOSCOPY N/A 08/26/2021 COLONOSCOPY WITH POLYPECTOMY performed by Mario Oneal MD at [facility] OR SEPTOPLASTY SMALL INTESTINE SURGERY [...] Resource Strain: Low Risk (07/27/2022) Received from [employer] The [facility]ing Team Overall Financial Resource Strain (CARDIA) Difficulty of Paying Living Expenses: Not hard at all Food Insecurity: No Food Insecurity (07/27/2022) Received from [employer] [facility]ing Team Hunger Vital Sign Worried About Running Out of Food in the Last Year: Never true Ran Out of Food in the Last Year: Never true Transportation Needs: No Transportation Needs (07/27/2022) Received from [employer] [facility] Team PRAPARE - Transportation Lack of Transportation (Medical): No Lack of Transportation (Non-Medical): No Physical Activity: Not on file Stress: No Stress Concern Present (07/27/2022) Received from [employer] [facility] The [facility]ing Team [facility] [place] of Occupational Health - Occupational Stress Questionnaire Feeling of Stress : Not at all Social Connections: Not on file Intimate Partner Violence: Not on file Housing Stability: High Risk (07/27/2022) Received from [employer] [facility] The [facility]ing Team Housing Stability Vital Sign Unable to Pay for Housing in the Last Year: Yes Number of Places Lived in the Last Year: 1 In the last 12 months, was there a time when you did not have a steady place to sleep or slept in ashelter (including now)?: No No Known Allergies PHYSICAL EXAM: Filed Vitals: 08/22/23 1040 09/02/23 1121 BP: 127/78 Pulse: 89 Resp: 18 Temp: 98.8 ??F (37.1 ??C) TempSrc: Temporal SpO2: 97% Weight: 114.8 kg (253 lb) Height: 1.803 m (5' 11 ) Wt Readings from Last 3 Encounters: 08/22/23 114.8 kg (253 lb) 08/09/23 114.9 kg (253 lb 4.8 oz) 07/18/23 114.7 kg (252 lb 12.8 oz) General: pleasant, no distress Lungs: clear to auscultation bilaterally Heart: regular rate and rhythm, normal s1-s2 Abdomen: soft, non-tender, non-distended, bowel sounds normal, no palpable masses Neuro: Alert, oriented, cooperative Labs: No results for input(s): WBC , HGB , MCV , PLT , INR in the last 168 hours. No results for input(s): NA , K , CL , CO2 , BUN in the last 168 hours. Invalid input(s): CREATININE No results for input(s): AST , ALT , ALB in the last 168 hours. Invalid input(s): ALKPHOS , TBILI ? Assessment and Plan: Abdominal burning and pain. History of bowel obstruction surgery. History of cholecystectomy last year. Plan, repeat EGD and colonoscopy. The procedural risks, benefits, alternatives were discussed fully with the patient, including the risks of complications of bleeding, infection, bowel injury or perforation, anesthesia related risks but not limited to the above. Post complication remedies could include hospitalization, antibiotics,surgery or even the remote possibility of . The patient verbalized understanding of the risks and wishes to proceed. Thank you for this consult. Please do not hesitate to contact us with further questions. MARIO ONEAL MD Voice recognition software utilized documented in this encounter OR Notes * Op Note - Mario Oneal MD - 09/02/2023 12:12 PM CDT [facility] OpNote Upper Endoscopy with Biopsy, Colonoscopy with Biopsy Procedure Note Sheri Hinds Aud 09/02/2023 1106 Procedure(s) (LRB): Upper Endoscopy with Biopsy (N/A) Colonoscopy with Biopsy (N/A) Surgeon(s): Mario Oneal MD Staff: Circulating Nurse 1: Anneliese Cai RN Scrub Person 1: Mounika Sam CST Anesthesia: Monitor Anesthesia Care POLICE SURGEON: Lisa Holt CRNA Pre-Op Diagnosis: Abdominal pain, rectal bleeding, constipation Post-Op Diagnosis: Small bowel lymphangiectasia. Terminal ileum ulcers biopsied. Procedure Description: Informed consent was obtained earlier. Patient was brought to the OR and placed in supine lateral decubitus position and sedated under MAC anesthesia. EGD with biopsy. GIF 190 gastroscope was lubricated inserted into the hypopharynx advanced directly. Upper middle and distal esophagus looked normal. Stomach distended well. Retroflexion was of the cardia fundus angularis revealed no abnormalities. Antrum looked normal. First and second part of duodenum looked normal. There appeared to be a small benign lymphangiectasia in the small bowel which was biopsied. Colonoscopy with biopsy. PCF 190 colonoscope was lubricated inserted into the rectum and advanced to the cecum. Terminal ileum was intubated and few aphthous ulcers were seen and biopsied in the terminal ileum. Cecum looked normal. Ascending colon transverse colon descending sigmoid rectum were allnormal as well. Retroflexion at the anal verge revealed mild hemorrhoids. Findings: EGD with duodenal biopsies for lymphangiectasia. Colonoscopy with terminal ileum ulcers biopsied. Rule out inflammatory bowel disease. Plan: Check biopsies. Start Questran for the burning. Complications: None Estimated Blood Loss: None Specimens: Order Name Source Comment Collection Info Order Time PATHOLOGY STOMACH Collected By: Mario Oneal MD 09/02/2023 12:11 PM Release to patient System release Voice recognition software utilized. MARIO ONEAL MD Date: 09/02/2023 Time: 12:12 PM Voice recognition software utilized. documented in this encounter Plan of Treatment Upcoming Encounters Date Type Department Care Team (Late st Contact Info) Description 05/15/2024 3:30 PM [place] [address] Pankaj Rosenberg MD [address] [place] [address] 05/25/2024 12:45 PM LOCKSTITCHER Office Visit [facility] Physical Therapy [address] [place] [address] Pankaj Rosenberg MD [address] [place] [address] Maay Magaña, [place] [address] 05/30/2024 3:40 PM LOCKSTITCHER Office Visit [facility] Multispecialty Care - [place] [address] [address] [place] [address] Pankaj Rosenberg MD [address] [facility] [address] [place] [address] 06/20/2024 3:[address] [facility]pecialty Care - [place] [address] [facility] [address] [place] [address] Pankaj Rosenberg MD 118[address] [facility] [address] [place] [address] 06/21/2024 1:00 PM LOCKSTITCHER Office Visit [facility] - [place] [address] [place] [address] Jose Ratliff MD 6[address] [facility] [address] [place] [address] 03/27/2025 1:00 PM LOCKSTITCHER [facility] [address] [facility] [address] [place] [id number] Mario Oneal MD [address] [facility] [address] [place] [address] documented as of this encounter Procedures Procedure Name Priority Date/Time Associated Diagnosis Comments COLONOSCOPY FLX DX W/COLLJ SPEC WHEN PFRMD 09/02/2023 11:47 AM CDT Generalized abdominal pain Rectal bleeding Epigastric pain Constipation, unspecified constipation type SBO (small bowel obstruction) (CMS/HCC HHS/HCC) Polyp of gallbladder Nausea and vomiting, unspecified vomiting type Change in bowel function Case Notes C UPPER GI ENDOSCOPY,DIAGNOSI S 09/02/2023 11:47 AM CDT Generalized abdominal pain Rectal bleeding Epigastric pain Constipation, unspecified constipation type SBO (small bowel obstruction) (CMS/HCC HHS/HCC) Polyp of gallbladder Nausea and vomiting, unspecified vomiting type Change in bowel function Case Notes C POCT GLUCOSE - FERRO DOCKED DEVICE Routine 09/02/2023 11:20 AM CDT PATHOLOGY Routine 09/02/2023 12:00 AM CDT documented in this encounter Results * POCT glucose (09/02/2023 11:20 AM CDT) GLUCOSE POC 103 70 - 110 mg/dL 09/05/2023 7:48 AM CDT [facility] 09/02/2023 11:2 0 AM CDT us Mario Oneal MD POCT ORDERABLES - DEVICE Final R esult [facility] [address] [place] [address], * Pathology (09/02/2023 12:00 AM CDT) PATHOLOGY [facility] ? Department of Laboratory Medicine ?[address] [facility] ?[place] [address] ? , extension [phone] ? Pathology Report ? Surgical Pathology Report Name: SHERI BARLOW ? Specimen #: [id number] Age: 12 1995 (Age: 28) ? Location: [facility] Sex: M ?Procedure Date: 09/02/2023 Hospital #: [id number] ?Date Received: 09/05/2023 Date Reported: 09/08/2023 Provider: MARIO ONEAL MD Source: A: Duodenum, biopsies B: Terminal ileum, biopsies Clinical History: Abdominal pain, rectal bleeding, and constipation. Gross Description: A. ??Received in formalin, labeled with a patient label and as duodenal biopsy is a 0.2 cm piece of white-[place]uther[place] tissue. ??The specimen is entirely submitted in cassette A1. B. ??Received in formalin, labeled with a patient label and as terminal ileum is a 0.3 cm piece of sutherland tissue. ??The specimen is entirely submitted in cassette B1. Gross examination (when applicable) was performed at [facility], [address] [place] [address]. This case was interpreted and signed out at [facility], [address] [place] [address]. FINAL DIAGNOSIS: A. Duodenum, biopsy: ? -Small intestinal mucosa with no significant pathologic abnormality ? -Dilated lacteals ??B. Terminal ileum, biopsy: ? -Small intestinal mucosa with no significant pathologic abnormality ? -Scant detached fragment of ulcerative tissue Diagnosis Comment: Immunohistochemical stain performed on block B1 for CMV is negative. GMS stain performed on block B1 is negative for fungal organisms. The reported immunohistochemistry test(s) was developed and its performance characteristics determined by [facility]. It has not been cleared or approved by the U.S. Food and Drug Administration. However, the use of Analyte Specific Reagents does not require FDA approval. Electronically Signed Out ? LORE ARMENTA MD [facility] TISSUE STOMACH STRUCTURE / Unknown 09/02/2023 11:56 AM CDT Tissue specimen (specimen) ILEAL STRUCTURE / Unknown 09/02/2023 12:09 PM CDT us Mario Oneal MD PATHOLOGY/CYTOLOGY ORDERABLES Fi nal Result [facility] [address] [place] [address], [place] [phone] documented in this encounter Visit Diagnoses Diagnosis Nausea and vomiting, unspecified vomiting type Change in bowel function Other symptoms involving digestive system Generalized abdominal pain Abdominal pain, generalized Rectal bleeding Hemorrhage of rectum and anus Epigastric pain Abdominal pain, epigastric Constipation, unspecified constipation type SBO (small bowel obstruction) ([facility]) Unspecified intestinal obstruction Polyp of gallbladder Cholesterolosis of gallbladder Generalized abdominal pain Abdominal pain, generalized Rectal bleeding Hemorrhage of rectum and anus Epigastric pain Abdominal pain, epigastric Constipation, unspecified constipation type SBO (small bowel obstruction) ([facility]) Unspecified intestinal obstruction Polyp of gallbladder Cholesterolosis of gallbladder Nausea and vomiting, unspecified vomiting type Change in bowel function Other symptoms involving digestive system documented in this encounter Admitting Diagnoses Diagnosis Nausea and vomiting, unspecified vomiting type Change in bowel function Other symptoms involving digestive system Generalized abdominal pain Abdominal pain, generalized Rectal bleeding Hemorrhage of rectum and anus Epigastric pain Abdominal pain, epigastric Constipation, unspecified constipation type SBO (small bowel obstruction) ([facility]) Unspecified intestinal obstruction Polyp of gallbladder Cholesterolosis of gallbladder documented in this encounter Administered Medications Inactive Administered Medications - up to 3 most recent administrations Medication Order MAR Action Action Date Dose Rate Site lactated ringers infusion at 10 mL/hr, Intravenous, Continuous, Starting on Tue09/02/23 at 1130, Until Tue09/02/23 at 1500, Infuse at TKO rate, Pre-Op Continued by Anesthesia 09/02/2023 11:47 AM CDT 10 mL/hr New Bag 09/02/2023 11:30 AM CDT 10 mL/hr documented in this encounter Active and Recently Administered Medications Times are shown in CDT. Continuous Medication Order 08/31/2023 09/01/2023 09/02/2023 lactated ringers infusion at 10 mL/hr, Intravenous, Continuous, Starting on Tue09/02/23 at 1130, Until Tue09/02/23 at 1500, Infuse at TKO rate, Pre-Op 1130 (New Bag - Prov ider: Rimma Wilkerson RN)1147 (Continued by Anesthesia - Provider: Lisa Holt CRNA)1249 (Infusion Stop Time - Provider: Gloria Chaves RN) documented in this encounter Additional Health Concerns Assessment Noted Time PHQ-9 Depression Total Score: 4 06/15/19 24 9:40 AM LOCKSTITCHER documented as of this encounter Care Teams Cook Night Relationship Specialty Start Date End Date Pankaj Rosenberg MD [address] [address] PCP - General INTERNAL MEDICINE 06/15/21 documented as of this encounter
--- OUTSIDE RECORDS SUMMARY | 2024-05-13 10:44 | XMS_ITS | Encounter Summary ---
Author Organization [facility] Address [address] [place] [address]. [place], [place] [address] [place] [address] Care Team Providers Care Dental Cream Maker Name Role Phone Pankaj Rosenberg MD Primary Care Provider [phone] Encounter Details Date Type Department Care Team (Late st Contact Info) Description 06/20/[address] 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 [place] [address] Pankaj Rosenberg MD [address] [address] 05/25/2024 12:45 PM FLOATER OPERATOR Office Visit [facility] Physical Therapy [address] [place] [address] Pankaj Rosenberg MD [address] [address] Maya Magaña, [place] [address] 05/30/2024 3:40 PM FLOATER OPERATOR Office Visit [facility] Medical [facility] Multispecialty Care - [place] [address] [address] [place] [address] Pankaj Rosenberg MD [facility] [address] [address] 06/20/2024 3:40 PM FLO[address] OPERATOR Telemedicine [facility] Medical [facility] Multispecialty Care - [place] [address] [address] [place] [address] Pankaj Rosenberg MD [address] [address] 06/21/2024 1:00 PM FLOATER OPERATOR Office Visit [facility] Orthopedic & Sports Medicine - [place] [address] [place] [address] Jose Ratliff MD [address] [address] [place] [address] 03/27/2025 1:00 PM FLOATER OPERATOR Office Visit [facility] Multispecialty Care - [facility] [address] [facility], [address] [place] [address] Bob Oneal MD [address] [place] [address] documented as of this encounter Visit Diagnoses Not on filedocumented in this encounter Additional Health Concerns Assessment Noted Time PHQ-9 Depression Total Score: 4 06/15/19 24 9:40 AM FLOATER OPERATOR documented as of this encounter Care Teams Dental Cream Maker Relationship Specialty Start Date End Date Pankaj Rosenberg MD [address] [facility] [address] [place] [address] PCP - General INTERNAL MEDICINE 06/15/21 documented as of this encounter
--- OUTSIDE RECORDS SUMMARY | 2024-05-13 10:44 | XMS_ITS | Encounter Summary ---
Author Organization [facility] Address [address] [place] [address]. [place] [address] [place] [address] Care Team Providers Care Microfilming Document Preparer Name Role Phone Pankaj Rosenberg MD Primary Care Provider [phone] Reason for Visit * Reason Comments Lab [...] on file Legal Sex Male 2:58 PM HEAD OF HUMAN RESOURCES Gender Identity Male 07/13/2021 5:19 AM HEAD OF HUMAN RESOURCES Sexual Orientation Straight 07/13/2021 5: 19 AM HEAD OF HUMAN RESOURCES documented as of this encounter Plan of Treatment Upcoming Encounters Date Type Department Care Team (Late st Contact Info) Description 05/15/2024 3:30 PM HEAD OF HUMAN RESOURCES [facility]ment [facility] [place] [place] [address] Pankaj Rosenberg MD [address] [facility] [address] [place] [address] 05/25/2024 12:45 PM HEAD OF HUMAN RESOURCES Office Visit [facility] Physical Therapy [address] [address] Pankaj Rosenberg MD [address] [address] Maya Magaña, [place] [address] 05/30/2024 3:40 PM HEAD OF HUMAN RESOURCES [facility] [place] [address] [address] [place] [address] Pankaj Rosenberg MD [address] [address] 06/20/2024 3:40 PM HEAD OF HUMAN RESOURCES [facility]medicine [facility] [place] [address] [address] [place] [address] Pankaj Rosenberg MD [address] [address] 06/21/2024 1:00 PM HEAD OF HUMAN RESOURCES Office Visit [facility] [place] [address] [place] [address] Jose Ratliff MD [id number] [place] [address] 03/27/2025 1:00 PM HEAD OF HUMAN RESOURCES Office Visit [facility] 3 [facility] [place] [address] [place] [address] Bob Oneal MD 3 [facility] [address] [place] [address] documented as of this encounter Procedures Procedure Name Priority Date/Time Associated Diagnosis Comments OUTSIDE LAB (SCAN ORDER) 12/12/2023 OUTSIDE LAB (SCAN ORDER) 12/12/2023 OUTSIDE LAB (SCAN ORDER) 12/12/2023 OUTSIDE LAB (SCAN ORDER) 12/12/2023 OUTSIDE LAB (SCAN ORDER) 12/12/2023 OUTSIDE LAB (SCAN ORDER) 12/12/2023 OUTSIDE LAB (SCAN ORDER) 12/12/2023 documented in this encounter Results * OUTSIDE LAB (SCAN ORDER) (12/12/2023) 12/12/2023 [facility] Scanned SCANNING Final Resu lt * OUTSIDE LAB (SCAN ORDER) (12/12/2023) 12/12/2023 [facility] Scanned SCANNING Final Resu lt * OUTSIDE LAB (SCAN ORDER) (12/12/2023) 12/12/2023 [facility] Scanned SCANNING Final Resu lt * OUTSIDE LAB (SCAN ORDER) (12/12/2023) 12/12/2023 [facility] Scanned SCANNING Final Resu lt * OUTSIDE LAB (SCAN ORDER) (12/12/2023) 12/12/2023 [facility] Scanned SCANNING Final Resu lt * OUTSIDE LAB (SCAN ORDER) (12/12/2023) 12/12/2023 [facility] Scanned SCANNING Final Resu lt * OUTSIDE LAB (SCAN ORDER) (12/12/2023) 12/12/2023 [facility] Scanned SCANNING Final Resu lt documented in this encounter Visit Diagnoses Not on filedocumented in this encounter Additional Health Concerns Assessment Noted Time PHQ-9 Depression Total Score: 4 06/15/19 24 9:40 AM HEAD OF HUMAN RESOURCES documented as of this encounter Care Teams Microfilming Document Preparer Relationship Specialty Start Date End Date Pankaj Rosenberg MD [address] [address] PCP - General INTERNAL MEDICINE 06/15/21 documented as of this encounter
--- OUTSIDE RECORDS SUMMARY | 2024-05-13 10:44 | XMS_ITS | Encounter Summary ---
Author Organization [facility] Address [address] [place] [address]. [place], [place] [address] [place] [address] Care Team Providers Care Felt Washing Machine Tender Name Role Phone Pankaj Rosenberg MD Primary Care Provider [phone] Reason for Visit * Reason Comments Stomach Pains Pt is here today wit h c/o stomach pain Encounter Details Date Type Department Care Team (Latest Contact Info) Description 07/18/2023 10:00 AM OCCUPATIONAL HEALTH AND SAFETY MANAGER Office Visit [facility] Care - [place] [address] [address] [place] [address] Pankaj Rosenberg MD [address] [place] [address] [address] [place], [place] [id number] Stomach Pains (Pt is here today with c/o stomach pain) Social History Tobacco Use Types Packs/Day Years [...] on file Legal Sex Male 2:58 PM OCCUPATIONAL HEALTH AND SAFETY MANAGER Gender Identity Male 07/13/2021 5:19 AM OCCUPATIONAL HEALTH AND SAFETY MANAGER Sexual Orientation Straight 07/13/2021 5: 19 AM OCCUPATIONAL HEALTH AND SAFETY MANAGER documented as of this encounter Last Filed Vital Signs Vital Sign Reading Time Taken Comments Blood Pressure 156/92 07/18/2023 10:50 AM OCCUPATIONAL HEALTH AND SAFETY MANAGER Pulse 85 07/18/2023 9:59 AM OCCUPATIONAL HEALTH AND SAFETY MANAGER Temperature 37.3 ??C (99.2 ??F) 07/18/2023 9:59 AM CS T Respiratory Rate 18 07/18/2023 9:59 AM OCCUPATIONAL HEALTH AND SAFETY MANAGER Oxygen Saturation 99% 07/18/2023 9:59 AM OCCUPATIONAL HEALTH AND SAFETY MANAGER Inhaled Oxygen Concentration - - Weight 114.7 kg (252 lb 12.8 oz) 07/18/2023 9:59 AM OCCUPATIONAL HEALTH AND SAFETY MANAGER Height 180.3 cm (5' 11 ) 07/18/2023 9:59 AM OCCUPATIONAL HEALTH AND SAFETY MANAGER Body Mass Index 35.26 07/18/2023 9:59 AM OCCUPATIONAL HEALTH AND SAFETY MANAGER documented in this encounter Progress Notes * Pankaj Rosenberg MD - 07/18/2023 10:00 AM CSTSummary: Acute visit notes Images from the original note were not included. Internal Medicine Outpatient Progress Note CC: Stomach Pains (Pt is here today with c/o stomach pain) HPI: Chuck Barlow is a 28-year-old male who presents for concerns about abdominal pain that is mainly in the epigastric region associated with nausea and diarrhea- Stomach is churning. Patient with prior history of gastroparesis status post surgical repair with several episodes of partial small bowel obstruction. Patient is also diabetic. He is currently on linagliptin. Januvia no longer covered by his insurance. He tells me symptoms have been occurring from time to time and this episode started about one monthago. This has since been persistent though diarrhea has improved. He previously was having multiplebowel movements which were watery but non bloody. He did have his gallbladder taken out a few months ago. He did have an EGD and colonoscopy done in 2021 with no concerning findings documented. He isusing 20 mg of omeprazole over the last one week as as his previous insurance was no longer covering for 40 mg daily of omeprazole. No reports of fever or chills. He tells me this feels different from his bowel obstruction symptoms. He has a positive family history of celiac's disease in his sister. He currently follows a general diet. No recent antibiotic use or concerns about C. difficile exposure. He only had 1 bowel movement today. Possibility of irritable bowel syndrome. He tells me he has not chewed tobacco in the last 3 yrs. Problem List Patient Active Problem List Diagnosis Mixed hyperlipidemia Traumatic brain injury (CMS/HCC) Nonalcoholic steatohepatitis Gallbladder polyp Fracture of spinous process of cervical vertebra (HHS/HCC) ([facility]) Essential hypertension, benign Deviated nasal septum Allergic rhinitis Arthrogryposis Type 2 diabetes mellitus with hyperglycemia, without long-term current use of insulin (HHS/HCC) ([facility]/HCC) Gastroesophageal reflux disease without esophagitis Nausea and vomiting, unspecified vomiting type Change in bowel function Epigastric burning sensation KARRIE (obstructive sleep apnea) History of gastroschisis Hypertrophy of nasal turbinates S/P exploratory laparotomy S/P small bowel resection Past Medical History: Diagnosis Date Allergy Arthrogryposis Diabetes mellitus (HHS/HCC) ([facility]/HCC) 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) Hyperlipidemia Hypertension Obstructive sleep apnea Past Surgical History: Procedure Laterality Date APPENDECTOMY as a baby along with gastroschisis COLONOSCOPY N/A 08/26/2021 COLONOSCOPY WITH POLYPECTOMY performed by Bob Oneal MD at [facility] OR SEPTOPLASTY SMALL INTESTINE SURGERY Family History Problem Relation Name Age of Onset No Known Problems Mother No Known Problems Father Heart Disease Maternal Grandfather Heart Disease Paternal Grandfather Thyroid Disease Paternal Grandfather Social History Tobacco Use Smoking status: Never Smokeless tobacco: Former Types: Snuff, Chew Quit date: 08/14/2020 Tobacco comments: counseled by Dr Rosenberg Vaping Use Vaping Use: Never used Substance Use Topics Alcohol use: Yes Alcohol/week: 5.0 standard drinks of alcohol Types: 3 Cans of beer per week Comment: socially on weekends Drug use: Never Medications: Outpatient Medications Marked as Taking for the 07/18/23 encounter (Office Visit) with Pankaj Rosenberg MD Medication Sig Dispense Refill amLODIPine (NORVASC) 10 MG tablet Take 1 tablet (10 mg total) by mouth daily. 90 tablet 1 azelastine (ASTELIN) 0.1 % nasal spray USE 1 SPRAY IN EACH NOSTRIL TWICE DAILY DIRECTED 90 mL 1 Blood Glucose Monitoring Suppl (RegulatoryBinderUCH VERIO REFLECT) w/Device Kit 1 Units by Does not apply route 2 (two) times daily. buPROPion SR (WELLBUTRIN SR) 150 MG 12 hr tablet Take 1 tablet (150 mg total) by mouth 2 (two) times daily. 180 tablet 1 clindamycin (CLEOCIN T) 1 % external solution Apply topically 2 (two) times daily. 180 mL 2 CPAP DEVICE, DME, Use daily when sleeping or taking a nap. 1 Device 0 ezetimibe (ZETIA) 10 MG tablet Take 1 tablet (10 mg total) by mouth daily. 90 tablet 1 Lancets (ONETOUCH DELICA PLUS [id number]) [facility] USE 1 LANCET TO PRICK FINGER TWICE DAILY BEFORE TESTING linaGLIPtin (TRADJENTA) 5 MG tablet Take 1 tablet (5 mg total) by mouth daily. 90 tablet 0 lisinopril (PRINIVIL) 10 MG tablet Take 1 tablet (10 mg total) by mouth daily. 90 tablet 1 montelukast (SINGULAIR) 10 MG tablet Take 1 tablet (10 mg total) by mouth nightly at bedtime. 30 tablet 6 pantoprazole EC (PROTONIX) 40 MG tablet Take 1 tablet (40 mg total) by mouth daily. 90 tablet 1 pravastatin (PRAVACHOL) 40 MG tablet Take 1 tablet (40 mg total) by mouth nightly at bedtime. 90 tablet 1 TRUEplus Lancets 33G [facility] Allergies: Review of patient's allergies indicates: Not on File Review of Systems Constitutional: Negative for chills, diaphoresis, fever, malaise/fatigue and weight loss. HENT: Negative. Eyes: Negative. Respiratory: Negative. Cardiovascular: Negative for chest pain, palpitations, orthopnea, claudication, leg swelling and PND. Gastrointestinal: Negative. Genitourinary: Negative. Musculoskeletal: Negative. Objective: Filed Vitals: 07/18/23 0959 07/18/23 1050 BP: (!) 147/85 (!) 156/92 Pulse: 85 Resp: 18 Temp: 99.2 ??F (37.3 ??C) TempSrc: Temporal SpO2: 99% Weight: 114.7 kg (252 lb 12.8 oz) Height: 1.803 m (5' 11 ) Body mass index is 35.26 kg/m??. General alert, cooperative, no distress HEENT [...] Plan: Encounter Diagnose(s) ICD-10-CM SNOMED CT(R) 1. Gastroesophageal reflux disease without esophagitis K21.9 GASTROESOPHAGEAL REFLUX DISEASE WITHOUT ESOPHAGITIS CELIAC DISEASE ANTIBODY PANEL H. PYLORI UREA BREATH TEST pantoprazole EC (PROTONIX) 40 MG tablet H. PYLORI UREA BREATH TEST 2. Diarrhea, unspecified type R19.7 DIARRHEA CELIAC DISEASE ANTIBODY PANEL VENIPUNC ARM DRAW LIPASE CBC W/DIFF AUTOMATED 3. Primary hypertension I10 ESSENTIAL HYPERTENSION 1. Gastroesophageal reflux disease without esophagitis -Patient symptoms not optimally controlled on 20 mg of omeprazole. Suspect likely contributory to his recent worsening symptoms. -CELIAC DISEASE ANTIBODY PANEL; Future - H. PYLORI UREA BREATH TEST; Future - pantoprazole EC (PROTONIX) 40 MG tablet; Take 1 tablet (40 mg total) by mouth daily. Dispense: 90tablet; Refill: 1 - H. PYLORI UREA BREATH TEST -Further recommendations pending results. 2. Diarrhea, unspecified type -Improving. Will defer any antibiotics at this time. Continue with electrolyte replacement therapy. -CELIAC DISEASE ANTIBODY PANEL; Future - VENIPUNC ARM DRAW - LIPASE; Future - CBC W/DIFF AUTOMATED; Future 3. Primary hypertension -Blood pressures appear uncontrolled at today's visit however I will defer adjusting his doses of medication and patient will continue with amlodipine 10 mg daily with lisinopril 10 mg daily. He has an upcoming appointment in about 4 weeks and we will reassess during that time in August 2023. Low-sodium diet. Increase activity by exercising 150 minutes/week. Counseling given: Yes Tobacco comments: counseled by Dr Rosenberg I personally spent a total of 30 minutes on the day of the encounter. This includes jyrr-ju-wlav and jry-pbaj-wk-face time I provided on the day of the encounter & excludes time spent performing separately reportable services. Side effects and less common but more severe adverse effects of recommended medical therapies were explained to the patient. Follow up office visit in 1 month. Requested MyChart or telephone follow up prn if symptoms change,worsen, or persist, or if side effect of treatment is experienced. DRAGON: This dictation was at least in part performed using [employer] and there may be some inherent flaws in this manufacturing specialist due to the nature of this program. Pankaj Rosenberg MD Internal Medicine [facility], [facility]. PATIONAL HEALTH AND SAFETY MANAGER documented in this encounter Plan of Treatment Upcoming Encounters Date Type Department Care Team (Late st Contact Info) Description 05/15/2024 3:30 PM OCCUPATIONAL HEALTH AND SAFETY MANAGER Appointment [facility] [address] Pankaj Rosenberg MD [address] [place] [address] 05/25/2024 12:45 PM OCCUPATIONAL HEALTH AND SAFETY MANAGER Office Visit [facility] Physical Therapy [address] [place] [address] Pankaj Rosenberg MD [facility] [address] [address] Maya Magaña, [place] [address] 05/30/2024 3:40 PM OCCUPATIONAL HEALTH AND SAFETY MANAGER Office Visit [facility] - [place] [address] [address] [place] [address] Pankaj Rosenberg MD [facility] [address] [address] 06/20/2024 3:40 PM OCCUPATIONAL HEALTH AND SAFETY MANAGER Telemedicine [facility] Multispec[facility]ty Care - [place] [address] [place] [address] [address] [place] [address] Pankaj Rosenberg MD 1188 [facility] [address] [place] [address] 06/21/2024 1:00 PM OCCUPATIONAL HEALTH AND SAFETY MANAGER Office Visit [facility] - [place] [address] [place] [address] Jose Ratliff MD [address] [place] [address] [place] [address] 03/27/2025 1:00 PM OCCUPATIONAL HEALTH AND SAFETY MANAGER [facility] 3 [facility] [address] [place] [address] Bob Oneal MD 3 [facility] [address] [place] [address] Scheduled Orders Name Type Priority Associated Diagnoses Orde r Schedule CELIAC DISEASE ANTIBODY PANEL Lab Routine Gastroesophageal reflux disease without esophagitis Diarrhea, unspecified type Expected: 07/18/2023, Expires: 07/17/2024 LIPASE Lab Routine Diarrhea, unspecified type Expected: 07/18/2023, Expires: 07/17/2024 CBC W/DIFF AUTOMATED Lab Routine Diarrhea, unspecified type Expected: 07/18/2023, Expires: 07/17/2024 documented as of this encounter Procedures Procedure Name Priority Date/Time Associated Diagnosis Comments H. PYLORI UREA BREATH TEST Routine 07/18/2023 11:29 AM OCCUPATIONAL HEALTH AND SAFETY MANAGER Gastroesophageal reflux disease without esophagitis VENIPUNC ARM DRAW Routine 07/18/2023 10: 26 AM OCCUPATIONAL HEALTH AND SAFETY MANAGER Diarrhea, unspecified type documented in this encounter Results * H. PYLORI UREA BREATH TEST (07/18/2023 11:29 AM OCCUPATIONAL HEALTH AND SAFETY MANAGER) H. PYLORI UREA BREATH TEST NOT DETECTED NOT DETECTED [facility] Comment: Antimicrobials, proton pump inhibitors, and bismuth preparations are known to suppress H. pylori, and ingestion of these prior to H. pylori diagnostic testing may lead to false negative results. If clinically indicated, the test may be repeated on a new specimen obtained two weeks after discontinuing treatment. However, a positive result is still clinically valid. 07/18/2023 11:2 9 AM OCCUPATIONAL HEALTH AND SAFETY MANAGER 07/18/2023 11:29 AM OCCUPATIONAL HEALTH AND SAFETY MANAGER Narrative [facility] - 07/19/2023 2:52 PM OCCUPATIONAL HEALTH AND SAFETY MANAGER FASTING:NO FASTING: NO Resulting Agency Comment Performing Organization Information: ?Site ID: [id number] ?Name: [email or web address] [facility] ?Address: [address] [place] [address] ?Director: Radha Scott MD Pankaj Rosenberg MD LABORATORY Final Result Performing Organization Address City/State/[facility] [[email or web address]] Co de Phone Number [facility] [address] [place], [place] [address] documented in this encounter Visit Diagnoses Diagnosis Gastroesophageal reflux disease without esophagitis- Primary Esophageal reflux Diarrhea, unspecified type Primary hypertension Unspecified essential hypertension documented in this encounter Additional Health Concerns Assessment Noted Time PHQ-9 Depression Total Score: 4 06/15/19 24 9:40 AM OCCUPATIONAL HEALTH AND SAFETY MANAGER documented as of this encounter Care Teams Felt Washing Machine Tender Relationship Specialty Start Date End Date Pankaj Rosenberg MD 1188 [facility] [address] [place] [address] PCP - General INTERNAL MEDICINE 06/15/21 documented as of this encounter
--- OUTSIDE RECORDS SUMMARY | 2024-05-13 10:44 | XMS_ITS | Encounter Summary ---
Author Organization [facility] Address [address] [place] [address]. [place], [place] [address] [place] [address] Care Team Providers Care Valve Maker Name Role Phone Pankaj Rosenberg MD Primary Care Provider Encounter Details Date Type Department Care Team (Latest Contact Info) Description 06/15/2023 Travel Social History Tobacco Use Types Packs/Day [...] on file Legal Sex Male 2:58 PM SIEVE GRADER TENDER Gender Identity Male 07/13/2021 5:19 AM SIEVE GRADER TENDER Sexual Orientation Straight 07/13/2021 5: 19 AM SIEVE GRADER TENDER documented as of this encounter Plan of Treatment Upcoming Encounters Date Type Department Care Team (Late st Contact Info) Description 05/15/2024 3:30 PM SIEVE GRADER TENDER Appointment [facility] [place] [address] Pankaj Rosenberg MD [address] [address] 05/25/2024 12:45 PM SIEVE GRADER TENDER Office Visit [facility] Physical Therapy [address] [address] Pankaj Rosenberg MD [address] [address] Maya Magaña, [place] [address] 05/30/2024 3:40 PM SIEVE GRADER TENDER Office Visit [facility] Medical [facility] Multispecialty Care - [place] [address] [address] [place] [address] Pankaj Rosenberg MD [address] [address] 06/20/2024 3:40 PM SIEVE GRADER TENDER [facility] - [place] [address] [address] [place] [address] Pankaj Rosenberg MD [address] [address] 06/21/2024 1:00 PM SIEVE GRADER TENDER Office Visit [facility] - [place] [address] [place] [address] Jose Ratliff MD [id number] [place] [address] 03/27/2025 1:00 PM SIEVE GRADER TENDER Office Visit [facility] Medical [facility] - [facility] 3 [facility] [place] [address] Bob Oneal MD 3 [facility] [address] [place] [address] documented as of this encounter Visit Diagnoses Not on filedocumented in this encounter Additional Health Concerns Assessment Noted Time PHQ-9 Depression Total Score: 4 06/15/19 24 9:40 AM SIEVE GRADER TENDER documented as of this encounter Care Teams Valve Maker Relationship Specialty Start Date End Date Pankaj Rosenberg MD [address] [address] PCP - General INTERNAL MEDICINE 06/15/21 documented as of this encounter
--- OUTSIDE RECORDS SUMMARY | 2024-05-13 10:44 | XMS_ITS | Encounter Summary ---
Author Organization [facility] Address [address] [place] [address]. [place], [place] [address] [place] [address] Care Team Providers Care Headstart Teacher Name Role Phone Pankaj Rosenberg MD Primary Care Provider [phone] Reason for Visit * Reason Onset Date Comments Prior Authorization 08/10/2023 [id number];453 80;[id number] Encounter Details Date Type Department Care Team (Late st Contact Info) Description 08/10/2023 Telephone [facility] Medical Group Multispecialty Care - [facility] [address] [facility], [address] [place] [id number] Mario Oneal MD [address] [place] [address] [place] [address] Prior Authorization ([id number];[id number]; [id number];[id number]/Colonoscopy -[id number]) Social History Tobacco Use Types Packs/Day Years [...] on file Legal Sex Male 2:58 PM SPONSORSHIP COORDINATOR Gender Identity Male 07/13/2021 5:19 AM SPONSORSHIP COORDINATOR Sexual Orientation Straight 07/13/2021 5: 19 AM SPONSORSHIP COORDINATOR documented as of this encounter Progress Notes * Malia Ghosh MA - 08/10/2023 8:25 AM CDT Notification or Prior Authorization is not required for the requested services. This [facility] [employer] member's plan does not currently require a prior authorization forthese services. If you have general questions about the prior authorization requirements, please call us at [phone] or visit Storee > Clinician Resources > Advance and Admission Notification Requirements. The number above acknowledges your notification. Please write this number down for future reference. Notification is not a guarantee of coverage or payment. Decision ID #: [id number] The number above acknowledges your inquiry and our response. Please write this number down and refer to it for future inquiries. Coverage and payment for an item or service is governed by the member's benefit plan document, and, if applicable, the provider's participation agreement with the Health Plan. Patient details Patient name CHUCK BARLOW Member number [id number] Group number [id number] Product POS Relationship Spouse Effective date 01/31/2023 Termination date 05/15/9999 Insurance type Commercial Verbal language preference - Written language preference - A future timeline may be available for this member. For future coverage please call the telephone number located on the back of the member's Medical ID card. Admitting/attending physician details Name Mario Oneal Tax ID number [id number] Address [address] [address] Status In network Service details Place of service Outpatient Facility/Outpatient Hospital What is place of service? Service details Surgical Facility details Name [facility] Tax ID number [id number] Address [address] [place] [address] Status In network Facility service dates details Start date 09/02/2023 End date 12/01/2023 Service description Scheduled What is service description? Diagnosis code details Code pointer Primary Diagnosis code R11.2 Description Nausea with vomiting, unspecified Code pointer New Diagnosis code R19.8 Description Other specified symptoms and signs involving the digestive system and abdomen Code pointer New Diagnosis code R10.13 Description Epigastric pain Code pointer New Diagnosis code Z90.49 Description Acquired absence of other specified parts of digestive tract Code pointer New Diagnosis code K62.5 Description Hemorrhage of anus and rectum Procedure code details Code pointer Primary Procedure Code 03210 Description ESOPHAGOGASTRODUODENOSCOPY TRANSORAL DIAGNOSTIC Selected servicing provider The provider who is providing the service being requested. Servicing provider name MARIO ONEAL Tax ID number [id number] Address [address] [place] [address] T. [phone] Status In network Code pointer New Procedure Code 72340 Description EGD TRANSORAL BIOPSY SINGLE/MULTIPLE Selected servicing provider The provider who is providing the service being requested. Servicing provider name MARIO ONEAL Tax ID number [id number] Address [address] [place] [address] T. [phone] Status In network Code pointer New Procedure Code 85427 Description EGD DILATION GASTRIC/DUODENAL STRICTURE Selected servicing provider The provider who is providing the service being requested. Servicing provider name MARIO ONEAL Tax ID number [id number] Address [address] [place] [address] T. [phone] Status In network Code pointer New Procedure Code 31839 Description EGD FLEX REMOVAL LESION(S) BY HOT BIOPSY FORCEPS Selected servicing provider The provider who is providing the service being requested. Servicing provider name MARIO ONEAL Tax ID number [id number] Address [address] [place] [address] T. [phone] Status In network Code pointer New Procedure Code 36747 Description EGD REMOVAL TUMOR POLYP/OTHER LESION SNARE TECH Selected servicing provider The provider who is providing the service being requested. Servicing provider name MARIO ONEAL Tax ID number [id number] Address [address] [place] [address] T. [phone] Status In network Code pointer New Procedure Code 13644 Description COLONOSCOPY FLX DX W/COLLJ SPEC WHEN PFRMD Selected servicing provider The provider who is providing the service being requested. Servicing provider name MARIO ONEAL Tax ID number [id number] Address [address] [facility] [address], [place] [address] T. [phone] Status In network Code pointer New Procedure Code 18194 Description COLONOSCOPY W/BIOPSY SINGLE/MULTIPLE Selected servicing provider The provider who is providing the service being requested. Servicing provider name MARIO ONEAL Tax ID number [id number] Address [address] [facility] [address], [place] [address] T. [phone] Status In network Code pointer New Procedure Code 63559 Description COLSC FLX W/RMVL OF TUMOR POLYP LESION SNARE TQ Selected servicing provider The provider who is providing the service being requested. Servicing provider name MARIO ONEAL Tax ID number [id number] Address [address] [facility] [address], [place] [address] T. [phone] Status In network documented in this encounter Plan of Treatment Upcoming Encounters Date Type Department Care Team (Late st Contact Info) Description 05/15/2024 3:30 PM SPONSORSHIP COORDINATOR Appointment [facility] [place] [address] Pankaj Rosenberg MD [address] [place] [address] 05/25/2024 12:45 PM SPONSORSHIP COORDINATOR Office Visit [facility] Physical Therapy [address] [place] [address] Pankaj Rosenberg MD [address] [place] [address] Maya Magaña, [place] [address] 05/30/2024 3:40 PM SPONSORSHIP COORDINATOR Office Visit [facility] Multispecialty Care - [place] [address] [address] [place] [address] Pankaj Rosenberg MD [address] [address] 06/20/2024 3:40 PM SPONSORSHIP COORDINATOR [facility] [place] [address] [address] [place] [address] Pankaj Rosenberg MD [address] [address] 06/21/2024 1:00 PM SPONSORSHIP COORDINATOR Office Visit [facility] Orthopedic & Sports Medicine - [place] [address] [place] [address] Jose Ratliff MD [address] [address] [place] [address] 03/27/2025 1:00 PM SPONSORSHIP COORDINATOR Office Visit [facility] Multispecialty [facility] 3 [facility], [address] [place] [address] Mario Oneal MD 3 [facility] [address] [place] [address] documented as of this encounter Visit Diagnoses Not on filedocumented in this encounter Additional Health Concerns Assessment Noted Time PHQ-9 Depression Total Score: 4 06/15/19 24 9:40 AM SPONSORSHIP COORDINATOR documented as of this encounter Care Teams Headstart Teacher Relationship Specialty Start Date End Date Pankaj Rosenberg MD [address] [place] [address] PCP - General INTERNAL MEDICINE 06/15/21 documented as of this encounter
--- OUTSIDE RECORDS SUMMARY | 2024-05-13 10:44 | XMS_ITS | Encounter Summary ---
Author Organization [facility] Address [address] [place] [address]. [place] [address] [place] [address] Care Team Providers Care Bee Rancher Name Role Phone Pankaj Rosenberg MD Primary Care Provider [phone] Reason for Visit * Auth/Cert (Routine) Specialty [...] DIAGNOSTIC WITH/WITHOUT SPECIMEN BRUSH/WASH Mario Oneal MD [address] [place] [address] Phone: tel: fax: Referral ID Status Reason Start Date Expiration Date Visits Re quested Visits Authorized [id number] 1 1 Encounter Details Date Type Department Care Team (Latest Contact Info) Description 09/02/2023 11:00 AM CDT - 09/02/2023 1:00 PM T Hospital Encounter [facility] [address] [place] [address] Mario Oneal MD [address] [place] [phone] Discharge Disposition: Home or Self Care (Routine [...] on file Legal Sex Male 2:58 PM QUARTER TRIMMER Gender Identity Male 07/13/2021 5:19 AM QUARTER TRIMMER Sexual Orientation Straight 07/13/2021 5: 19 AM QUARTER TRIMMER documented as of this encounter Last Filed Vital Signs Vital Sign Reading Time Taken Comments Blood Pressure 123/76 09/02/2023 12:35 PM CDT Pulse 79 09/02/2023 12:35 PM CDT Temperature 36.8 ??C (98.3 ??F) 09/02/2023 12:35 PM C DT Respiratory Rate 18 09/02/2023 12:35 PM CDT Oxygen Saturation 98% 09/02/2023 12:35 PM CDT Inhaled Oxygen Concentration - - Weight 114.8 kg (253 lb) 08/22/2023 10:40 AM CDT Height 180.3 cm (5' 11 ) 08/22/2023 10:40 AM CDT Body Mass Index 35.29 08/22/2023 10:40 AM CDT documented in this encounter Discharge Instructions * Attachments The following attachments cannot be sent through Care Everywhere. * Upper GI Endoscopy Discharge Instructions (Puerto Rican) * Colonoscopy Discharge Instructions (Puerto Rican) * Moderate Sedation in Adults Discharge Instructions ([place]erto Rican) documented in this encounter Medications at Time of Discharge Blood Glucose Monitoring Suppl ([employer] VERIO REFLECT) w/Device Kit 1 Units by Does not apply route 2 (two) times daily. 09/16/2021 CPAP DEVICE, DME,Indications:KARRIE (obstructive sleep apnea) Use daily when sleeping or taking a nap. 1 Device 08/21/2021 Lancets (SpaceFaceUCH DELICA PLUS [id number]) Misc USE 1 LANCET TO PRICK FINGER TWICE DAILY BEFORE TESTING 09/16/2021 mupirocin (BACTROBAN) 2 % ointmentIndications: Dermatitis Apply topically 2 (two) times daily. Use on the scalp on the rash. 22 g 3 11/24/2022 TRUEplus Lancets 33G Misc 09/16/2021 amLODIPine (NORVASC) 10 MG tabletIndications:Es sential hypertension, benign,Hypertension associated with type 2 diabetes mellitus ([facility] HHS/HCC) Take 1 tablet (10 mg total) by mouth daily. 90 tablet 1 03/09/2023 4 azelastine (ASTELIN) 0.1 % nasal sprayIndications:All ergic rhinitis, unspecified seasonality, unspecified trigger USE 1 SPRAY IN EACH NOSTRIL TWICE DAILY DIRECTED 90 mL 1 11/24/2022 4 buPROPion SR (WELLBUTRIN SR) 150 MG 12 hr tabletIndications:Re current major depressive disorder, remission status unspecified ([facility]) Take 1 tablet (150 mg total) [...] hyperglycemia, without long-term current use of insulin ([facility] HHS/HCC) Take 1 tablet (5 mg total) by mouth daily. 90 tablet 06/21/2023 4 lisinopril (PRINIVIL) 10 MG tabletIndications:Es sential hypertension, benign,Hypertension associated with type 2 diabetes mellitus ([facility] HHS/HCC) Take 1 tablet (10 mg total) [...] lipidemia due to type 2 diabetes mellitus ([facility] HHS/[facility]) Take 1 tablet (40 mg total) by [...] List Diagnosis Mixed hyperlipidemia Traumatic brain injury (CMS/HCC HHS/HCC) Nonalcoholic steatohepatitis Gallbladder polyp Fracture of spinous process of cervical vertebra ([facility]) Essential hypertension, benign Deviated nasal septum Allergic rhinitis Arthrogryposis Type 2 diabetes mellitus with hyperglycemia, without long-term current use of insulin ([facility]) Gastroesophageal reflux disease without esophagitis Nausea and vomiting, unspecified vomiting type Change in bowel function Epigastric burning sensation KARRIE (obstructive sleep apnea) History of gastroschisis Hypertrophy of nasal turbinates S/P exploratory laparotomy S/P small bowel resection Generalized abdominal pain Rectal bleeding Epigastric pain Constipation, unspecified constipation type SBO (small bowel obstruction) ([facility]) Polyp of gallbladder Past Medical History: Diagnosis Date Allergy Arthrogryposis Diabetes mellitus ([facility]) Hyperlipidemia Hypertension Obstructive sleep apnea Personal history of (corrected) gastroschisis Past Surgical History: Procedure Laterality Date APPENDECTOMY as a baby along with gastroschisis COLONOSCOPY N/A 08/26/2021 COLONOSCOPY WITH POLYPECTOMY performed by Mario Oneal MD at [facility] OR SEPTOPLASTY SMALL INTESTINE SURGERY Family [...] Resource Strain: Low Risk (07/27/2022) Received from [facility] [employer] [facility] Overall Financial Resource Strain (CARDIA) Difficulty of Paying Living Expenses: Not hard at all Food Insecurity: No Food Insecurity (07/27/2022) Received from [facility] [employer] [facility] Hunger Vital Sign Worried About Running Out of Food in the Last Year: Never true Ran Out of Food in the Last Year: Never true Transportation Needs: No Transportation Needs (07/27/2022) Received from [facility] - Transportation Lack of Transportation (Medical): No Lack of Transportation (Non-Medical): No Physical Activity: Not on file Stress: No Stress Concern Present (07/27/2022) Received from [employer] [facility] - Occupational Stress Questionnaire Feeling of Stress : Not at all Social Connections: Not on file Intimate Partner Violence: Not on file Housing Stability: High Risk (07/27/2022) Received from [employer] Housing Stability Vital Sign Unable to Pay [...] Mounika Sam CST Anesthesia: Monitor Anesthesia Care TRADER: Lisa Holt CRNA Pre-Op Diagnosis: Abdominal pain, [...] st Contact Info) Description 05/15/2024 3:30 PM QUARTER TRIMMER Appointment [facility] [place] [address] Pankaj Rosenberg MD [address] [place] [address] 05/25/2024 12:45 PM QUARTER TRIMMER Office Visit [facility] Physical Therapy [address] [place] [address] Pankaj Rosenberg MD [address] [place] [address] Maya Magaña, [place] [address] 05/30/2024 3:40 PM QUARTER TRIMMER [facility] [place] [address] [address] [place] [address] Pankaj Rosenberg MD [address] [place] [address] 06/20/2024 3:40 PM QUARTER TRIMMER Telemedicine [place] [address] [address] [place] [address] Pankaj Rosenberg MD [address] [facility] [address] [place] [address] 06/21/2024 1:00 PM QUARTER TRIMMER Office Visit [facility] Orthopedic & Sports Medicine - [place] [address] [place] [address] Jose Ratliff MD [address] [address] [place] [address] 03/27/2025 1:00 PM QUARTER TRIMMER Office Visit [facility] Multispecialty Care - [facility] 3 [facility] [address] [place] [address] Mario Oneal MD 3 [facility] [address] [place] [address] documented as of this encounter Procedures Procedure [...] - 110 mg/dL 09/05/2023 7:48 AM CDT [facility] 09/02/2023 11:2 0 AM CDT us Mario Oneal MD POCT ORDERABLES - DEVICE Final R esult Performing Organization Address [facility]/State/ZIP Co de Phone Number [facility] [address] [place] [address], * Pathology (09/02/2023 12:00 AM CDT) PATHOLOGY [facility] ? Department of Laboratory Medicine ?[address] [facility] ?[place] [address] ? , [facility] [id number] ? Pathology Report ? Surgical Pathology Report Name: SHERI BARLOW R ? Specimen #: [id number] Age: 12 1995 (Age: 28) ? Location: [facility] Sex: M ?Procedure Date: 09/02/2023 [facility] #: [id number] ?Date Received: 09/05/2023 Date Reported: 09/08/2023 Provider: [...] Gross examination (when applicable) was performed at [facility], [address] [place] [address]. This case was interpreted and signed out at [facility], [address] [place] [address]. FINAL DIAGNOSIS: A. Duodenum, biopsy: ? -Small [...] developed and its performance characteristics determined by [facility]. It has not been cleared or approved by the U.S. Food and Drug Administration. However, the use of Analyte Specific Reagents does not require FDA approval. Electronically Signed Out ? LORE ARMENTA MD [facility] TISSUE STOMACH STRUCTURE / Unknown 09/02/2023 11:56 AM CDT Tissue specimen (specimen) ILEAL STRUCTURE / Unknown 09/02/2023 12:09 PM CDT us Mario Oneal MD PATHOLOGY/CYTOLOGY ORDERABLES Fi nal Result [facility] [address] [place] [address], [id number] documented in this encounter Visit Diagnoses Diagnosis Nausea and vomiting, unspecified vomiting type Change in bowel function Other symptoms involving digestive system Generalized abdominal pain Abdominal pain, generalized Rectal bleeding Hemorrhage of rectum and anus Epigastric pain Abdominal pain, epigastric Constipation, unspecified constipation type SBO (small bowel obstruction) ([facility]) Unspecified intestinal obstruction Polyp of gallbladder Cholesterolosis of gallbladder documented in this encounter Admitting Diagnoses Diagnosis Nausea and vomiting, unspecified vomiting type Change in bowel function Other symptoms involving digestive system Generalized abdominal pain Abdominal pain, generalized Rectal bleeding Hemorrhage of rectum and anus Epigastric pain Abdominal pain, epigastric Constipation, unspecified constipation type SBO (small bowel obstruction) ([facility] HHS/HCC) Unspecified intestinal obstruction Polyp of gallbladder Cholesterolosis [...] CRNA)1249 (Infusion Stop Time - Provider: Gloria Chaves, RN) documented in this encounter Additional Health Concerns Assessment Noted Time PHQ-9 Depression Total Score: 4 06/15/19 24 9:40 AM QUARTER TRIMMER documented as of this encounter Care Teams Bee Rancher Relationship Specialty Start Date End Date Pankaj Rosenberg MD [address] [facility] [address] [place] [address] PCP - General INTERNAL MEDICINE 06/15/21 documented as of this encounter
--- OUTSIDE RECORDS SUMMARY | 2024-05-13 10:44 | XMS_ITS | Encounter Summary ---
Author Organization [facility] Address [address] [place] [address]. [place], [place] [address] [place] [address] Care Team Providers Care Angle Bender Name Role Phone Pankaj Rosenberg MD Primary Care Provider [phone] Reason for Visit * Reason Comments Follow Up Depression Derm Problem Encounter Details Date Type Department Care Team (Latest Contact Info) Description 06/15/2023 9:20 AM DOCUMENTATION SUPERVISOR Office Visit [facility] Medical Group Multispecialty Care - [place] [address] [address] [place] [address] Pankaj Rosenberg MD [address] [place] [address] [address] [place], [place] [address] Follow Up; Depression; Derm Problem Social History Tobacco Use Types Packs/Day Years [...] on file Legal Sex Male 2:58 PM DOCUMENTATION SUPERVISOR Gender Identity Male 07/13/2021 5:19 AM DOCUMENTATION SUPERVISOR Sexual Orientation Straight 07/13/2021 5: 19 AM DOCUMENTATION SUPERVISOR documented as of this encounter Last Filed Vital Signs Vital Sign Reading Time Taken Comments Blood Pressure 137/89 06/15/2023 9:45 AM DOCUMENTATION SUPERVISOR Pulse 68 06/15/2023 9:16 AM DOCUMENTATION SUPERVISOR Temperature 36.7 ??C (98 ??F) 06/15/2023 9:16 AM DOCUMENTATION SUPERVISOR Respiratory Rate 16 06/15/2023 9:16 AM DOCUMENTATION SUPERVISOR Oxygen Saturation 99% 06/15/2023 9:16 AM DOCUMENTATION SUPERVISOR Inhaled Oxygen Concentration - - Weight 117.1 kg (258 lb 3.2 oz) 06/15/2023 9:16 AM DOCUMENTATION SUPERVISOR Height 180.3 cm (5' 11 ) 06/15/2023 9:16 AM DOCUMENTATION SUPERVISOR Body Mass Index 36.01 06/15/2023 9:16 AM DOCUMENTATION SUPERVISOR documented in this encounter Patient Instructions * Patient Instructions* Pankaj Rosenberg MD - 06/15/2023 9:20 AM DOCUMENTATION SUPERVISOR Follow up in 4 to 8 weeks for your physical- come fasting. MENTATION SUPERVISOR * Attachments The following attachments cannot be sent through Care Everywhere. * Bacterial Folliculitis Discharge Instructions (Tajik) documented in this encounter Progress Notes * Pankaj Rosenberg MD - 06/15/2023 9:20 AM CSTSummary: Follow-up notes Images from the original note were not included. Internal Medicine Outpatient Progress Note CC: Follow Up, Depression, and Derm Problem HPI: Chuck Barlow is a 28-year-old male who presents for follow-up for depression and concerns about ongoing folliculitis. Patient was seen a couple of weeks ago for uncontrolled depression. Comes in today for follow-up. He was started on Wellbutrin 75 mg twice daily. Tolerating medications well. Has noticed some improvements but still thinks his symptoms not optimally controlled. He is wondering if his dose of medication can be changed at today's visit. No side effects. No suicidal thoughts or intentions to harm. Nomania, delusions or hallucinations. Currently not following with therapy or psychiatry. He will be getting his second HPV vaccine at today's visit. PHQ-9: 03/09/2023 2:22 PM 06/15/2023 9:40 AM PHQ2/PHQ 9 DEPRESSION SCREEN QUESTIONAIRE Little interest or pleasure in doing things Not at all Several days Feeling down, depressed, or hopeless Several days Several days Patient Health Questionnaire-2 Score 1 2 Trouble falling or staying asleep, or sleeping too much Not at all Not at all Feeling tired or having little energy Several days Several days Poor appetite or overeating Not at all Not at all Feeling bad about yourself - or that you are a failure or have let yourself or your family down Notat all Not at all Trouble concentrating on things, such as reading the newspaper or watching television Not at all Several days Moving or speaking so slowly that other people could have noticed? Or the opposite - being so fidgety or restless that you have been moving around a lot more than usual. Not at all Not at all Thoughts that you would be better off or hurting yourself in some way Not at all Not at all Patient Health Questionnaire-9 Score 2 4 How difficult have these problems made it for you to do your work, take care of things at home, or get along with other people? Somewhat difficult Somewhat difficult KANCHAN-7 (Generalized Anxiety Disorder) Screening 03/09/2023 2:22 PM 06/15/2023 9:41 AM KANCHAN-7 Feeling nervous, anxious, or on edge [...] with other people? Not difficult at all Not difficult at all Problem List Patient Active Problem List Diagnosis Mixed hyperlipidemia Traumatic brain injury ([facility]/HCC) Nonalcoholic steatohepatitis Gallbladder polyp Fracture of spinous process of cervical vertebra ([facility]/HCC) ([facility]) Essential hypertension, benign Deviated nasal septum Allergic rhinitis Arthrogryposis Type 2 diabetes mellitus with hyperglycemia, without long-term current use of insulin ([facility]) ([facility]) Gastroesophageal reflux disease without esophagitis Nausea and vomiting, unspecified vomiting type Change in bowel function Epigastric burning sensation KARRIE (obstructive sleep apnea) History of gastroschisis Hypertrophy of nasal turbinates S/P exploratory laparotomy S/P small bowel resection Past Medical History: Diagnosis Date Allergy Arthrogryposis Diabetes mellitus ([facility]) ([facility]/HCC) 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 90 tablet 1 azelastine (ASTELIN) 0.1 % nasal spray USE 1 SPRAY IN EACH NOSTRIL TWICE DAILY DIRECTED 90 mL 1 Blood Glucose Monitoring Suppl (Cashkaro VERIO REFLECT) w/Device Kit 1 Units by Does not apply route 2 (two) times daily. buPROPion SR (WELLBUTRIN SR) 150 MG 12 hr tablet Take 1 tablet (150 mg total) by mouth 2 (two) times daily. 180 tablet 1 chlorhexidine (HIBICLENS) 4 % Liquid Apply topically daily as needed. 3790 mL 1 clindamycin (CLEOCIN T) 1 % external solution Apply topically 2 (two) times daily. 180 mL 2 CPAP DEVICE, DME, Use daily when sleeping or taking a nap. 1 Device 0 doxycycline hyclate (VIBRAMYCIN) 100 MG capsule Take 1 capsule (100 mg total) by mouth 2 (two) times daily for 7 days. 14 capsule 0 ezetimibe (ZETIA) 10 MG tablet Take 1 tablet (10 mg total) by mouth daily. 90 tablet 1 Lancets (Cashkaro DELICA PLUS [id number]) Mis USE 1 LANCET TO PRICK FINGER TWICE DAILY BEFORE TESTING lisinopril (PRINIVIL) 10 MG tablet Take 1 [...] mouth nightly at bedtime. 90 tablet 1 SITagliptin (JANUVIA) 25 mg Tab Take 1 tablet (25 mg total) by mouth daily. 90 tablet 1 TRUEplus Lancets 33G [facility] Allergies: Review of patient's allergies indicates: Not on File Review of Systems Constitutional: Negative for chills, diaphoresis, fever, malaise/fatigue and weight loss. HENT: Negative. Eyes: Negative. Respiratory: Negative. Cardiovascular: Negative for chest pain, palpitations, orthopnea, claudication, leg swelling and PND. Gastrointestinal: Negative. Genitourinary: Negative. Musculoskeletal: Negative. Skin: Positive for rash. Negative for itching. Neurological: Negative. Objective: Filed Vitals: 06/15/23 0916 06/15/23 0945 BP: (!) 148/93 137/89 Pulse: 68 Resp: 16 Temp: 98 ??F (36.7 ??C) TempSrc: Temporal SpO2: 99% Weight: 117.1 kg (258 lb 3.2 oz) Height: 1.803 m (5' 11 ) Body mass index is 36.01 kg/m??. General alert, cooperative, no distress HEENT [...] Plan: Encounter Diagnose(s) ICD-10-CM SNOMED CT(R) 1. Need for prophylactic vaccination against human papillomavirus Z23 REQUIRES VACCINATION [14834] Gardasil 9 (HPV) 2. Recurrent major depressive disorder, remission status unspecified (CMS/HCC) F33.9 RECURRENT MAJOR DEPRESSION buPROPion SR (WELLBUTRIN SR) 150 MG 12 hr tablet 3. Folliculitis L73.9 FOLLICULITIS chlorhexidine (HIBICLENS) 4 % Liquid clindamycin (CLEOCIN T) 1 % external solution doxycycline hyclate (VIBRAMYCIN) 100 MG capsule CULTURE, ROUTINE W/ GRAM STAIN (SMD/SJS/SFL ONLY) 1. Need for prophylactic vaccination against human papillomavirus - [23911] Gardasil 9 (HPV) 2. Recurrent major depressive disorder, remission status unspecified (CMS/HCC) - improving - I personally reviewed PHQ-9 and KACNHAN-7 scores with patient today and explained the meaning of patient's scores to patient. Patient is currently improving. I counseled for about 3 minutes on strategies including stress management, sleep hygiene, balanced diet, regular physical activity including aerobic exercise, weight reduction, activity pacing, maintenance of overall health lifestyle, medication compliance and the need for close follow up. Comorbidities including depression, anxiety currently being managed. Active nonpharmacological therapies including supervised and graded exercise program as well as cognitive behavioral interventions discussed as well. Based on patient scores today, I carol finn discussed with patient the plan as outlined below. - increase to buPROPion SR (WELLBUTRIN SR) 150 MG 12 hr tablet; Take 1 tablet (150 mg total) by mouth 2 (two) times daily. Dispense: 180 tablet; Refill: 1 3. Folliculitis - chlorhexidine (HIBICLENS) 4 % Liquid; Apply topically daily as needed. Dispense: 3790 mL; Refill:1 - clindamycin (CLEOCIN T) 1 % external solution; Apply topically 2 (two) times daily. Dispense: 180mL; Refill: 2 - doxycycline hyclate (VIBRAMYCIN) 100 MG capsule; Take 1 capsule (100 mg total) by mouth 2 (two) times daily for 7 days. Dispense: 14 capsule; Refill: 0 - CULTURE, ROUTINE W/ GRAM STAIN (SMD/SJS/SFL ONLY); Future Counseling given: Yes Tobacco comments: counseled by Dr Rosenberg I personally spent a total of 30 minutes on the day of the encounter. This includes cnrv-wn-huwl and bif-mdvm-ve-face time I provided on the day of the encounter & excludes time spent performing separately reportable services. Side effects and less common but more severe adverse effects of recommended medical therapies were explained to the patient. Follow up office visit in 2 months. Requested MyChart or telephone follow up prn if symptoms change, worsen, or persist, or if side effect of treatment is experienced. DARREL: This dictation was at least in part performed using [employer] and there may be some inherent flaws in this digitizer operator due to the nature of this program. Pankaj Rosenberg MD Internal Medicine [facility], [facility]. MENTATION SUPERVISOR documented in this encounter Plan of Treatment Upcoming Encounters Date Type Department Care Team (Late st Contact Info) Description 05/15/2024 3:30 PM DOCUMENTATION SUPERVISOR Appointment [facility] [place] [address] Pankaj Rosenberg MD [address] [place] [address] 05/25/2024 12:45 PM DOCUMENTATION SUPERVISOR Office Visit [facility] Physical Therapy [address] [place] [address] Pankaj Rosenberg MD [address] [place] [address] Maya Magaña, [place] [address] 05/30/2024 3:40 PM DOCUMENTATION SUPERVISOR Office Visit [facility] Multispecialty Care - [place] [address] [facility] [address] [place] [address] Pankaj Rosenberg MD [address] [address] 06/20/2024 3:40 PM DOCUMENTATION SUPERVISOR [facility] - [place] [address] [facility] [address] [place] [address] Pankaj Rosenberg MD 1188 [facility] 157 [place] [address] 06/21/2024 1:00 PM DOCUMENTATION SUPERVISOR Office Visit [facility] Orthopedic & Sports Medicine - [place] [address] [place] [address] Jose Ratliff MD 670 [facility] [address] [place] [address] 03/27/2025 1:00 PM DOCUMENTATION SUPERVISOR [facility] 3 [facility], [address] [place] [address] Bob Oneal MD 3 [facility] [address] [place] [address] documented as of this encounter Procedures Procedure Name Priority Date/Time Associated Diagnosis Comments CULTURE, ROUTINE W/ GRAM STAIN Routine 06/15/2023 10:32 AM DOCUMENTATION SUPERVISOR Folliculitis documented in this encounter Results * CULTURE, ROUTINE W/ GRAM STAIN (SMD/SJS/SFL ONLY) (06/15/2023 10:32 AM DOCUMENTATION SUPERVISOR) SPEC DESCRIPTION SCALP: SWAB 06/15/2023 10:33 AM DOCUMENTATION SUPERVISOR [facility] SPECIAL REQUESTS NO SPECIAL REQUEST 06/15/2023 10:33 AM DOCUMENTATION SUPERVISOR [facility] GRAM STAIN RESULT MODERATE DEGENERATED NEUTROPHILS 06/16/2023 3:33 AM DOCUMENTATION SUPERVISOR [facility] GRAM STAIN RESULT NO ORGANISMS SEEN 06/16/2023 3:33 AM DOCUMENTATION SUPERVISOR [facility] CULTURE RESULT FEW STAPHYLOCOCCUS, COAGULASE NEGATIVE 06/18/2023 8:30 AM DOCUMENTATION SUPERVISOR [facility] SPECIMEN FROM HEAD AND NECK STRUCTURE / Unknown 06/15/2023 10:32 AM DOCUMENTATION SUPERVISOR 06/15/2023 8:33 PM DOCUMENTATION SUPERVISOR Comment:SWAB Pankaj Rosenberg MD MICROBIOLOGY - GENERAL ORDERABLE S Final Result [facility] [address] [place] [address], [id number] documented in this encounter Visit Diagnoses Diagnosis Need for prophylactic vaccination against human papillomavirus- Primary Need for prophylactic vaccination and inoculation against other viral diseases Recurrent major depressive disorder, remission status unspecified (CMS/HCC) Folliculitis Other specified disease of hair and hair follicles documented in this encounter Additional Health Concerns Assessment Noted Time PHQ-9 Depression Total Score: 4 06/15/19 24 9:40 AM DOCUMENTATION SUPERVISOR documented as of this encounter Care Teams Angle Bender Relationship Specialty Start Date End Date Pankaj Rosenberg MD 1188 [facility] [address] [place] [address] PCP - General INTERNAL MEDICINE 06/15/21 documented as of this encounter
--- OUTSIDE RECORDS SUMMARY | 2024-05-13 10:44 | XMS_ITS | Encounter Summary ---
Author Organization [facility] Address [address] [place] [address]. [place], [place] [id number] [place] [address] Care Team Providers Care Litigation Claim Representative Name Role Phone Pankaj Rosenberg MD Primary Care Provider [phone] Reason for Visit * Reason Onset Date Comments Medication 06/21/2023 Encounter Details Date Type Department Care Team (Late st Contact Info) Description 06/21/2023 Telephone [facility] Medical Group Multispecialty Care [place] [address] [address] [place] [address] Pankaj Rosenberg MD [address] [place] [address] 157 [place], [place] [id number] Medication Social History Tobacco Use Types Packs/Day [...] on file Legal Sex Male 2:58 PM POLITICAL ADVISOR Gender Identity Male 07/13/2021 5:19 AM POLITICAL ADVISOR Sexual Orientation Straight 07/13/2021 5: 19 AM POLITICAL ADVISOR documented as of this encounter Plan of Treatment Upcoming Encounters Date Type Department Care Team (Late st Contact Info) Description 05/15/2024 3:30 PM [address] [facility] [facility] ONE [place] [phone] Pankaj Rosenberg MD [address] [address] 05/25/2024 12:45 PM POLITICAL ADVISOR Office Visit [facility] Physical [facility] [address] [address] Pankaj Rosenberg MD [address] [address] Maya Magaña, [place] [address] 05/30/2024 3:40 PM POLITICAL ADVISOR Office Visit [facility] Medical [facility] Multispecialty Care - [place] [address] [address] [place] [address] Pankaj Rosenberg MD [address] [address] 06/20/2024 3:40 PM POLITICAL ADVISOR Telemedicine [facility] - [place] [address] [address] [place] [address] Pankaj Rosenberg MD [address] [address] 06/21/2024 1:00 PM POLITICAL ADVISOR Office Visit [facility] Medical Group Orthopedic & Sports Medicine - [facility] [address] [place] [address] Jose Ratliff MD [address] [address] [place] [address] 03/27/2025 1:00 PM POLITICAL ADVISOR Office Visit [facility] Medical [facility] Multispecialty Care - [facility] 3 [facility] [address] [place] [address] Bob Oneal MD [address] [facility] [address] [place] [address] documented as of this encounter Visit Diagnoses Diagnosis Type 2 diabetes mellitus with hyperglycemia, without long-term current use of insulin ([facility])- Primary documented in this encounter Additional Health Concerns Assessment Noted Time PHQ-9 Depression Total Score: 4 06/15/19 24 9:40 AM POLITICAL ADVISOR documented as of this encounter Care Teams Litigation Claim Representative Relationship Specialty Start Date End Date Pankaj Rosenberg MD 1188 [facility] [address] [place] [address] PCP - General INTERNAL MEDICINE 06/15/21 documented as of this encounter
--- OUTSIDE RECORDS SUMMARY | 2024-05-13 10:44 | XMS_ITS | Encounter Summary ---
Author Organization [facility] Address [address] [place] [address]. [place], [place] [address] [place] [address] Care Team Providers Care Vehicle Fare Collector Name Role Phone Pankaj Rosenberg MD Primary Care Provider [phone] Reason for Visit * Reason Onset Date Comments Medication 06/20/2023 Encounter Details Date Type Department Care Team (Late st Contact Info) Description 06/20/2023 Telephone [facility] Multispecialty Care - [place] [address] [address] [place] [address] Pankaj Rosenberg MD [address] [place] [address] 157 [place], [place] [id number] Medication Social History Tobacco Use Types Packs/Day [...] on file Legal Sex Male 2:58 PM AIR PUMPER Gender Identity Male 07/13/2021 5:19 AM AIR PUMPER Sexual Orientation Straight 07/13/2021 5: 19 AM AIR PUMPER documented as of this encounter Progress Notes * Viviana Romero MA - 06/21/2023 3:58 PM CST New prescription sent to pharmacy that is elligble for insurance. Pts copay is $40. Called pt to ask if he is on medicaid to help with co payment of medication. PUMPER * Viviana Romero MA - 06/21/2023 3:57 PM CST Pa denied via epic. PUMPER * Pankaj Rosenberg MD - 06/20/2023 3:12 PM CST ----- Message from Viviana Romero MA sent at 06/20/2023 2:57 PM AIR PUMPER ----- Can you start a prior auth for this pts medication he called into the office today stating it was urgent for the januvia. Blood sugar medication PUMPER documented in this encounter Plan of Treatment Upcoming Encounters Date Type Department Care Team (Late st Contact Info) Description 05/15/2024 3:30 PM AIR PUMPER Appointment [facility] [place] [address] Pankaj Rosenberg MD [address] [place] [address] 05/25/2024 12:45 PM AIR PUMPER Office Visit [facility] Physical Therapy [address] [place] [address] Pankaj Rosenberg MD [facility] [address] Maya Magaña, [place] [address] 05/30/2024 3:40 PM AIR PUMPER Office Visit [facility] Group Multispecialty Care - [place] [address] [address] [place] [address] Pankaj Rosenberg MD [address] [address] 06/20/2024 3:40 PM AIR PUMPER Telemedicine [facility] Multispecialty [facility] - [place] [address] [address] [place] [address] Pankaj Rosenberg MD [facility] [address] 06/21/2024 1:00 PM AIR PUMPER Office Visit [facility] Orthopedic & Sports Medicine - [place] [address] [place] [address] Jose Ratliff MD 670 [facility] [address] [place] [address] 03/27/2025 1:00 PM AIR PUMPER Office Visit [facility] Multispecialty [facility] - [facility] [address] [facility] [address] [place] [id number] Bob Oneal MD 3 [facility] [address] [place] [address] documented as of this encounter Visit Diagnoses Diagnosis Type 2 diabetes mellitus with hyperglycemia, without long-term current use of insulin ([facility]) documented in this encounter Additional Health Concerns Assessment Noted Time PHQ-9 Depression Total Score: 4 06/15/19 24 9:40 AM AIR PUMPER documented as of this encounter Care Teams Vehicle Fare Collector Relationship Specialty Start Date End Date Pankaj Rosenberg MD [address] [place] [address] PCP - General INTERNAL MEDICINE 06/15/21 documented as of this encounter
--- OUTSIDE RECORDS SUMMARY | 2024-05-13 10:44 | XMS_ITS | Encounter Summary ---
Author Organization [facility] Address [address] [place] [address]. [place], [place] [address] [place] [address] Care Team Providers Care Plastic Surgery Specialist Name Role Phone Pankaj Rosenberg MD Primary Care Provider [phone] Reason for Visit * Reason Onset Date Comments Medication 06/17/2023 Encounter Details Date Type Department Care Team (Late st Contact Info) Description 06/17/2023 Telephone [facility] Medical Group Multispecialty Care - [place] [address] [address] [place] [address] Pankaj Rosenberg MD [address] [place] [address] 157 [place], [place] [id number] Medication Social History Tobacco Use Types Packs/Day [...] on file Legal Sex Male 2:58 PM GRIZZLY WORKER Gender Identity Male 07/13/2021 5:19 AM GRIZZLY WORKER Sexual Orientation Straight 07/13/2021 5: 19 AM GRIZZLY WORKER documented as of this encounter Progress Notes * Viviana Romero MA - 06/20/2023 3:35 PM CST Prior auth started via boosk ZLY WORKER * Pankaj Rosenberg MD - 06/17/2023 6:17 PM CST Preauthorization needed on Januvia. Please work on PA for Januvia for patient thank you. I called and spoke to patient and he has a few tablets to last for about 48 hours thanks. ZLY WORKER * Artur Cruz - 06/17/2023 3:45 PM CST Pt called today and stated that the pharmacy stated he needs a pre authorization for Januvia 25 mg,he cis ompletely out, pls call pt ZLY WORKER documented in this encounter Plan of Treatment Upcoming Encounters Date Type Department Care Team (Late st Contact Info) Description 05/15/2024 3:30 PM GRIZZLY WORKER Appointment [facility] [place] [address] [place] [address] [place] [address] 05/25/2024 12:45 PM GRIZZLY WORKER Office Visit [facility] Physical Therapy [address] [place] [address] [place] [address] [place] [address] Maya Magaña, [place] [address] 05/30/2024 3:40 PM GRIZZLY WORKER Office Visit [facility] Medical Group Multispecialty Care - [place] [address] [address] [place] [address] Pankaj Rosenberg MD 1188 [facility] 157 [place] [address] 06/20/2024 3:40 PM GRIZZLY WORKER Telemedicine [facility] Multispecialty [facility] - [place] [address] [address] [place] [address] Pankaj Rosenberg MD 1188 [facility] 157 [place] [address] 06/21/2024 1:00 PM GRIZZLY WORKER Office Visit [facility] Orthopedic & Sports Medicine - [place] [address] [place] [address] Jose Ratliff MD 670 [facility] [address] [place] [address] 03/27/2025 1:00 PM GRIZZLY WORKER Office Visit [facility] Multispecialty Care - [facility] 3 [facility] [address] [place] [address] Bob Oneal MD [address] [facility] [address] [place] [address] documented as of this encounter Visit Diagnoses Diagnosis Type 2 diabetes mellitus with hyperglycemia, without long-term current use of insulin ([facility])- Primary documented in this encounter Additional Health Concerns Assessment Noted Time PHQ-9 Depression Total Score: 4 06/15/19 24 9:40 AM GRIZZLY WORKER documented as of this encounter Care Teams Plastic Surgery Specialist Relationship Specialty Start Date End Date Pankaj Rosenberg MD 1188 [facility] 157 [place] [address] PCP - General INTERNAL MEDICINE 06/15/21 documented as of this encounter
--- OUTSIDE RECORDS SUMMARY | 2024-05-13 10:44 | XMS_ITS | Encounter Summary ---
Author Organization [facility] Address [address] [place] [address]. [place], [place] [address] [place] [address] Care Team Providers Care Motor Runner Name Role Phone Pankaj Rosenberg MD Primary Care Provider [phone] Reason for Visit * Reason Onset Date Comments Prior Authorization 06/20/2023 Beryl Encounter Details Date Type Department Care Team (Late st Contact Info) Description 06/20/2023 Telephone [facility] Medical Group Multispecialty Care - [place] [address] [address] [place], [place] [id number] Pankaj Rosenberg MD [address] [place] [address] 157 [place] [address] Prior Authorization (Beryl) Social History Tobacco Use Types Packs/Day Years [...] on file Legal Sex Male 2:58 PM MAP PLOTTER Gender Identity Male 07/13/2021 5:19 AM MAP PLOTTER Sexual Orientation Straight 07/13/2021 5: 19 AM MAP PLOTTER documented as of this encounter Progress Notes * Isela Daily MA - 06/20/2023 1:39 PM CST Sent Beryl KING to insurance company will notify patient if approved or denied. PLOTTER documented in this encounter Plan of Treatment Upcoming Encounters Date Type Department Care Team (Late st Contact Info) Description 05/15/2024 3:30 PM MAP PLOTTER Appointment [facility] [place] [address] Pankaj Rosenberg MD [address] [place] [address] 05/25/2024 12:45 PM MAP PLOTTER Office Visit [facility] Physical Therapy [address] [place] [address] Pankaj Rosenberg MD [address] [place] [address] Maya Magaña, [place] [address] 05/30/2024 3:40 PM MAP PLOTTER Office Visit [facility] Medical [facility] Multispecialty Care - [place] [address] [address] [place] [address] Pankaj Rosenberg MD [facility] [address] 06/20/2024 3:40 PM MAP PLOTTER Telemedicine [facility] Multispecialty Care - [address] [place] [address] Pankaj Rosenberg MD [facility] [address] 06/21/2024 1:00 PM MAP PLOTTER Office Visit [facility] Medical Group Orthopedic & Sports Medicine - [address] [place] [address] Jose Ratliff MD [address] [address] [place] [address] 03/27/2025 1:00 PM MAP PLOTTER Office Visit [facility] Medical Group Multispecialty Care - [facility] [address] [facility] [address] [place] [address] Bob Oneal MD [address] [facility] [address] [place] [address] documented as of this encounter Visit Diagnoses Not on filedocumented in this encounter Additional Health Concerns Assessment Noted Time PHQ-9 Depression Total Score: 4 06/15/19 24 9:40 AM MAP PLOTTER documented as of this encounter Care Teams Motor Runner Relationship Specialty Start Date End Date Pankaj Rosenberg MD 1188 [facility] 157 [place] [address] PCP - General INTERNAL MEDICINE 06/15/21 documented as of this encounter
--- OUTSIDE RECORDS SUMMARY | 2024-05-13 10:44 | XMS_ITS | Encounter Summary ---
Author Organization [facility] Address [address] [place] [address]. [place], [place] [address] [place] [address] Care Team Providers Care Energy Efficiency Specialist Name Role Phone Pankaj Rosenberg MD Primary Care Provider [phone] Encounter Details Date Type Department Care Team (Latest Contact Info) Description 07/18/2023 Travel Social History Tobacco Use Types Packs/Day [...] on file Legal Sex Male 2:58 PM AUTOMOBILE CLUB MEMBERSHIP SALES AGENT Gender Identity Male 07/13/2021 5:19 AM AUTOMOBILE CLUB MEMBERSHIP SALES AGENT Sexual Orientation Straight 07/13/2021 5: 19 AM AUTOMOBILE CLUB MEMBERSHIP SALES AGENT documented as of this encounter Plan of Treatment Upcoming Encounters Date Type Department Care Team (Late st Contact Info) Description 05/15/2024 3:30 PM AUTOMOBILE CLUB MEMBERSHIP SALES AGENT Appointment [facility] [place] [address] Pankaj Rosenberg MD [address] [address] 05/25/2024 12:45 PM AUTOMOBILE CLUB MEMBERSHIP SALES AGENT Office Visit [facility] Physical Therapy [address] [address] Pankaj Rosenberg MD [address] [address] Maya Magaña, [place] [address] 05/30/2024 3:40 PM AUTOMOBILE CLUB MEMBERSHIP SALES AGENT Office Visit [facility] Medical [facility] Multispecialty Care - [place] [address] [address] [place] [address] Pankaj Rosenberg MD [address] [address] 06/20/2024 3:40 PM AUTOMOBILE CLUB MEMBERSHIP SALES AGENT [facility] - [place] [address] [address] [place] [address] Pankaj Rosenberg MD [address] [address] 06/21/2024 1:00 PM AUTOMOBILE CLUB MEMBERSHIP SALES AGENT Office Visit [facility] Medical Group Orthopedic & Sports Medicine - [place] [address] [place] [address] Jose Ratliff MD [id number] [place] [address] 03/27/2025 1:00 PM AUTOMOBILE CLUB MEMBERSHIP SALES AGENT Office Visit [facility] Medical [facility] Multispecialty Care - [facility] 3 [facility] [address] [place] [address] Bob Oneal MD 3 [facility] [address] [place] [address] documented as of this encounter Visit Diagnoses Not on filedocumented in this encounter Additional Health Concerns Assessment Noted Time PHQ-9 Depression Total Score: 4 06/15/19 24 9:40 AM AUTOMOBILE CLUB MEMBERSHIP SALES AGENT documented as of this encounter Care Teams Energy Efficiency Specialist Relationship Specialty Start Date End Date Pankaj Rosenberg MD [address] [address] PCP - General INTERNAL MEDICINE 06/15/21 documented as of this encounter
--- OUTSIDE RECORDS SUMMARY | 2024-05-13 10:44 | XMS_ITS | Encounter Summary ---
Author Organization [facility] Address [address] [place] [address]. [place], [place] [address] [place] [address] Care Team Providers Care Assembler Sandal Parts Name Role Phone Pankaj Rosenberg MD Primary Care Provider [phone] Encounter Details Date Type Department Care Team (Latest Contact Info) Description 08/16/2023 Travel Social History Tobacco Use Types Packs/Day [...] on file Legal Sex Male 2:58 PM GAS PUMPING STATION HELPER Gender Identity Male 07/13/2021 5:19 AM GAS PUMPING STATION HELPER Sexual Orientation Straight 07/13/2021 5: 19 AM GAS PUMPING STATION HELPER documented as of this encounter Plan of Treatment Upcoming Encounters Date Type Department Care Team (Late st Contact Info) Description 05/15/2024 3:30 PM GAS PUMPING STATION HELPER Appointment [facility] [place] [address] Pankaj Rosenberg MD [address] [address] 05/25/2024 12:45 PM GAS PUMPING STATION HELPER Office Visit [facility] Physical Therapy [address] [address] Pankaj Rosenberg MD [address] [address] Maya Magaña, [place] [address] 05/30/2024 3:40 PM GAS PUMPING STATION HELPER Office Visit [facility] Medical [facility] Multispecialty Care - [place] [address] [address] [place] [address] Pankaj Rosenberg MD [address] [address] 06/20/2024 3:40 PM GAS PUMPING STATION HELPER [facility] [place] [facility] - [place] [address] [address] [place] [address] Pankaj Rosenberg MD [address] [address] 06/21/2024 1:00 PM GAS PUMPING STATION HELPER Office Visit [facility] Medical Group Orthopedic & Sports Medicine - [place] [address] [place] [address] Jose Ratliff MD [id number] [place] [address] 03/27/2025 1:00 PM GAS PUMPING STATION HELPER Office Visit [facility] Medical [facility] Multispecialty Care - [facility] 3 [facility] [address] [place] [address] Bob Oneal MD 3 [facility] [address] [place] [address] documented as of this encounter Visit Diagnoses Not on filedocumented in this encounter Additional Health Concerns Assessment Noted Time PHQ-9 Depression Total Score: 4 06/15/19 24 9:40 AM GAS PUMPING STATION HELPER documented as of this encounter Care Teams Assembler Sandal Parts Relationship Specialty Start Date End Date Pankaj Rosenberg MD [address] [address] PCP - General INTERNAL MEDICINE 06/15/21 documented as of this encounter
--- OUTSIDE RECORDS SUMMARY | 2024-05-13 10:44 | XMS_ITS | Encounter Summary ---
Author Organization [facility] Address [address] [place] [address]. [place], [place] [address] [place] [address] Care Team Providers Care Telephonic Case Manager Name Role Phone Pankaj Rosenberg MD Primary Care Provider [phone] Reason for Visit * Reason Onset Date Comments Referral 08/02/2023 Encounter Details Date Type Department Care Team (Late st Contact Info) Description 08/02/2023 Telephone [facility] Medical Group Multispecialty Care - [place] [address] [address] [place] [address] Pankaj Rosenberg MD [address] [place] [address] 157 [place], [place] [phone] Referral Social History Tobacco Use Types Packs/Day Years [...] on file Legal Sex Male 2:58 PM CENTRAL PROCESSING TECH Gender Identity Male 07/13/2021 5:19 AM CENTRAL PROCESSING TECH Sexual Orientation Straight 07/13/2021 5: 19 AM CENTRAL PROCESSING TECH documented as of this encounter Progress Notes * Doc Ribera - 08/02/2023 12:51 PM CDT Patient called and requested that his referral to GI Specialist be faxed to Dr. Mauricio Cameron at [phone]. Referral successfully faxed on 08/02/23. documented in this encounter Plan of Treatment Upcoming Encounters Date Type Department Care Team (Late st Contact Info) Description 05/15/2024 3:30 PM CENTRAL PROCESSING TECH Appointment [facility] [place] [address] Pankaj Rosenberg MD [address] [place] [address] 05/25/2024 12:45 PM CENTRAL PROCESSING TECH Office Visit [facility] Physical Therapy [address] [place] [address] Pankaj Rosenberg MD [address] [place] [address] Maya Magaña, [place] [address] 05/30/2024 3:40 PM CENTRAL PROCESSING TECH Office Visit [facility] Multispecialty Care - [address] [address] Pankaj Rosenberg MD [address] [place] [address] 06/20/2024 3:40 PM CENTRAL PROCESSING TECH [facility] [place] [address] [place] [address] Pankaj Rosenberg MD [address] [place] [address] 06/21/2024 1:00 PM CENTRAL PROCESSING TECH Office Visit [facility] Orthopedic & Sports Medicine - [place] [address] [place] [address] Jose Ratliff MD [address] [address] [place] [address] 03/27/2025 1:00 PM CENTRAL PROCESSING TECH Office Visit [facility] Multispecialty Care - [facility] 3 [facility] [address] [place] [address] Bob Oneal MD [facility] [address] [place] [address] documented as of this encounter Visit Diagnoses Not on filedocumented in this encounter Additional Health Concerns Assessment Noted Time PHQ-9 Depression Total Score: 4 06/15/19 24 9:40 AM CENTRAL PROCESSING TECH documented as of this encounter Care Teams Telephonic Case Manager Relationship Specialty Start Date End Date Pankaj Rosenberg MD [address] [address] PCP - General INTERNAL MEDICINE 06/15/21 documented as of this encounter
--- OUTSIDE RECORDS SUMMARY | 2024-05-13 10:44 | XMS_ITS | Encounter Summary ---
Author Organization [facility] Address [address] [place] [address]. [place] [address] [place] [address] Care Team Providers Care Clear Coat Sprayer Name Role Phone Pankaj Rosenberg MD Primary Care Provider [phone] Reason for Visit * Reason Onset Date Comments Results 08/31/2023 Encounter Details Date Type Department Care Team (Late st Contact Info) Description 08/31/2023 Telephone [facility] Medical Group Multispecialty Care - [facility] 3 [facility], [address] [place] [address] Carolyn Rutledge NP 3 [facility] [address] [place] [address] Results Social History Tobacco Use Types Packs/Day Years [...] on file Legal Sex Male 2:58 PM FIELD SALES MANAGER Gender Identity Male 07/13/2021 5:19 AM FIELD SALES MANAGER Sexual Orientation Straight 07/13/2021 5: 19 AM FIELD SALES MANAGER documented as of this encounter Progress Notes * Dorothea Correia MA - 08/31/2023 10:47 AM CDT Verbalized results Per SHERRY KAUFMAN pt VU----- Message from Carolyn Rutledge NP sent at 08/31/2023 8:30 AM CDT ----- Regarding: Notification of Unviewed Test Results Contact: See below documented in this encounter Plan of Treatment Upcoming Encounters Date Type Department Care Team (Late st Contact Info) Description 05/15/2024 3:30 PM FIELD SALES MANAGER Appointment [facility] [place] [address] Pankaj Rosenberg MD [address] [place] [address] 05/25/2024 12:45 PM FIELD SALES MANAGER Office Visit [facility] Physical Therapy [address] [place] [address] Pankaj Rosenberg MD [address] [place] [address] Maya Magaña, [place] [address] 05/30/2024 3:40 PM FIELD SALES MANAGER [facility] - [place] [address] [place] [address] Pankaj Rosenberg MD [address] [place] [address] 06/20/2024 3:40 PM FIELD SALES MANAGER [facility] - [place] [address] [address] [place] [address] Pankaj Rosenberg MD 1188 [facility] 157 [place] [address] 06/21/2024 1:00 PM FIELD SALES MANAGER Office Visit [facility] Orthopedic & Sports Medicine - [place] [address] [place] [address] Jose Ratliff MD [address] [place] [address] [place] [address] 03/27/2025 1:00 PM FIELD SALES MANAGER Office Visit [facility] Multispecialty Care - [facility] 3 [facility] [address] [place] [address] Bob Oneal MD 3 [facility] [address] [place] [address] documented as of this encounter Visit Diagnoses Not on filedocumented in this encounter Additional Health Concerns Assessment Noted Time PHQ-9 Depression Total Score: 4 06/15/19 24 9:40 AM FIELD SALES MANAGER documented as of this encounter Care Teams Clear Coat Sprayer Relationship Specialty Start Date End Date Pankaj Rosenberg MD [address] [address] PCP - General INTERNAL MEDICINE 06/15/21 documented as of this encounter
--- OUTSIDE RECORDS SUMMARY | 2024-05-13 10:44 | XMS_ITS | Encounter Summary ---
Author Organization [facility] Address [address] [place] [address]. [place] [address] [place] [address] Care Team Providers Care Management Intern Name Role Phone Pankaj Rosenberg MD Primary Care Provider [phone] Reason for Referral * Surgical (Routine) - New Request Specialty Diagnoses / Procedures Referred By Contac t Referred To Contact Diagnoses Generalized abdominal pain Rectal bleeding Epigastric pain Constipation, unspecified constipation type SBO (small bowel obstruction) (CMS/HCC HHS/HCC) Polyp of gallbladder Nausea and vomiting, unspecified vomiting type Change in bowel function Procedures Case request operating room: EGD, COLONOSCOPY DIAGNOSTIC WITH/WITHOUT SPECIMEN BRUSH/WASH Bob Oneal MD [address] [place] [address] Phone: tel: fax: Referral ID Status Reason Start Date Expiration Date V isits Requested Visits Authorized [id number] New Request 08/09/2023 08/08/2024 1 1 Encounter Details Date Type Department Care Team (Late st Contact Info) Description 08/09/2023 Orders Only [facility] Medical Group Multispecialty Care - [address] [place] [address] Bob Oneal MD [address] [place] [address] [address] [place] [address] Social History Tobacco Use Types Packs/Day Years [...] on file Legal Sex Male 2:58 PM PILE OPERATOR Gender Identity Male 07/13/2021 5:19 AM PILE OPERATOR Sexual Orientation Straight 07/13/2021 5: 19 AM PILE OPERATOR documented as of this encounter Plan of Treatment Upcoming Encounters Date Type Department Care Team (Late st Contact Info) Description 05/15/2024 3:30 PM PILE OPERATOR Appointment [facility] [place] [place] [address] Pankaj Rosenberg MD [address] [place] [address] 05/25/2024 12:45 PM PILE OPERATOR Office Visit [facility] Physical Therapy [address] [place] [address] Pankaj Rosenberg MD [facility] [address] [address] Maya Magaña, [place] [address] 05/30/2024 3:40 PM PILE OPERATOR Office Visit [facility] Medical Group Multispecialty Care - [place] [address] [address] [place] [address] Pankaj Rosenberg MD [facility] [address] [address] 06/20/2024 3:40 PM PILE OPERATOR Telemedicine [facility] Multispecialty Care - [place] [address] [place] [address] [address] [place] [address] Pankaj Rosenberg MD 1188 [facility] [address] [place] [address] 06/21/2024 1:00 PM PILE OPERATOR Office Visit [facility] Orthopedic & Sports Medicine - [place] [address] [place] [address] Joes Ratliff MD [address] [place] [address] [place] [address] 03/27/2025 1:00 PM PILE OPERATOR Office Visit [facility] Multispecialty Care - [facility] 3 [facility] [address] [place] [address] Bob Oneal MD 3 [facility] [address] [place] [address] Scheduled Orders Name Type Priority Associated Diagnoses Orde r Schedule Case request operating room: EGD, COLONOSCOPY DIAGNOSTIC WITH/WITHOUT SPECIMEN BRUSH/WASH Case Request Routine Generalized abdominal pain Rectal bleeding Epigastric pain Constipation, unspecified constipation type SBO (small bowel obstruction) ([facility]) Polyp of gallbladder Nausea and vomiting, unspecified vomiting type Change in bowel function Ordered: 08/09/2023 documented as of this encounter Visit Diagnoses Diagnosis Generalized abdominal pain- Primary Abdominal pain, generalized Rectal bleeding Hemorrhage of rectum and anus Epigastric pain Abdominal pain, epigastric Constipation, unspecified constipation type SBO (small bowel obstruction) ([facility] HHS/[facility]) Unspecified intestinal obstruction Polyp of gallbladder Cholesterolosis of gallbladder Nausea and vomiting, unspecified vomiting type Change in bowel function Other symptoms involving digestive system documented in this encounter Additional Health Concerns Assessment Noted Time PHQ-9 Depression Total Score: 4 06/15/19 24 9:40 AM PILE OPERATOR documented as of this encounter Care Teams Management Intern Relationship Specialty Start Date End Date Pankaj Rosenberg MD [address] [address] PCP - General INTERNAL MEDICINE 06/15/21 documented as of this encounter
--- OUTSIDE RECORDS SUMMARY | 2024-05-13 10:44 | XMS_ITS | Encounter Summary ---
Author Organization [facility] Address [address] [place] [address]. [place] [address] [place] [address] Care Team Providers Care Enterprise Architect Manager Name Role Phone Pankaj Rosenberg MD Primary Care Provider [phone] Reason for Visit * Auth/Cert (Routine) Specialty [...] COLONOSCOPY,DIAGNOSTIC EGD COLONOSCOPY DIAGNOSTIC WITH/WITHOUT SPECIMEN BRUSH/WASH Bob Oneal MD [address] [place] [address] Phone: tel: fax: Referral ID Status Reason Start Date Expiration Date Visits Re quested Visits Authorized [id number] 1 1 Encounter Details Date Type Department Care Team (Late st Contact Info) Description 09/02/2023 11:47 AM CDT Anesthesia Event [facility] [address] [place] [address] Lisa Holt CRNA 2022 [place] [address] Anesthesia Record Procedure Summary Procedure Name Responsible Anesthesiologist Anesthesia Start Time Anesthesia Stop Time Upper Endoscopy with Biopsy Lisa Holt CRNA 09/02/23 1147 09/02/23 1212 Events Date Time Event Comment 09/02/2023 1143 1143 AN Anesthesia Prepped 1147 An Start Patient ID and consent checked and patient reassessed. 1147 An Start Data 1147 AN Immediate Reassess The pa tient was reevaluated immediately before sedation or regional anesthesia. 1147 Nasal Cannula Applied 1147 Anesthesia Ready 1212 Nasal Cannula Removed 1212 an stop data 1212 An Stop 1213 Post Anesthetic Care Handoff I completed my handoff to the receiving nurse during which we: 1. Identified the patient 2. Identified the responsible provider 3. Reviewed the pertinent medical history 4. Discussed the surgical course 5. Reviewed intra-op anesthesia management and issues during anesthesia 6. Set expectations for post-procedure period 7. Allowed opportunity for questions and acknowledgement of understanding. Meds Name Total lidocaine (PF) (XYLOCAINE) 1% injection 100 mg propofol (DIPRIVAN) 200 mg/20 mL injecti on 550 mg lactated ringers infusion 0 mL * Agents Name O2 * Blood No blood administrations on file. Lines, Drains, and Airways Type Details Placement Removal Peripheral IV Placement Date: 08/14 02/06; Placement Time: 1130; Placed Outside of This Facility?: No; Size: 22 G; Orientation: Left; Location: Forearm; Site Prep: Chlorhexidine; Insertion attempts: 1; Patient Tolerance: Tolerated well; Removal Date: 09/02/23; Removal Time: 1249 09/02/23 1130 by Rimma Wilkerson RN 09/02/23 1249 by Gloria Chaves RN documented in this encounter Social History Tobacco [...] on file Legal Sex Male 2:58 PM OPERA SINGER Gender Identity Male 07/13/2021 5:19 AM OPERA SINGER Sexual Orientation Straight 07/13/2021 5: 19 AM OPERA SINGER documented as of this encounter OR Notes * Anesthesia Postprocedure Evaluation - Lisa Hlot CRNA - 09/02/2023 12:13 PM CDT Anesthesia Post-op Note Chuck Hinds Yen Procedure(s): Upper Endoscopy with Biopsy Colonoscopy with Biopsy Anesthesia type: MAC Vitals: 09/02/23 1121 BP: 127/78 Vitals: 09/02/23 1121 Pulse: 89 Vitals: 09/02/23 1121 Resp: 18 Vitals: 09/02/23 1121 Temp: 37.1 ??C Vitals: 09/02/23 1121 SpO2: 97% Patient Location: Phase II/Outpatient Level of Consciousness: awake, alert and oriented Pain Management: adequate analgesia Airway Patency: patent Respiratory Status: acceptable Cardiovascular Status: acceptable Post-Op Nausea: none Postoperative Hydration: euvolemic There were no known notable events for this encounter. * Anesthesia Preprocedure Evaluation - Lisa Holt CRNA - 08/24/2023 8:01 AM CDT Anesthesia ROS/MED History Reviewed: Patient summary , Nursing notes , Family history anesthesia, Anesthesia history , Medications Pre-Anesthetic State: alert, awake and responds appropriately Pulmonary (+) sleep apnea Cardiovascular (+) hypertension, hyperlipidemia Neuro/Psych Substance Use (+) smokeless tobacco use (former), alcohol use, weekly, 5-6 GI/Hepatic/Renal (+) GERD, liver disease, (fatty liver disease) Endo/Other (+) diabetes mellitus, obese NPO Status: Physical Evaluation Airway Mallampati: II TM Distance: >3 FB Neck ROM: normal Dental No notable dental history Pulmonary Pulmonary exam normal Breath sounds clear to auscultation Cardiovascular Rhythm: regular Rate: normal Cardiovascular exam normal STOP-Bang Assessment: Anesthesia Plan ASA 3 Intravenous Induction Anesthesia type: MAC Plan for Airway: nasal cannula/simple face mask Informed Consent Anesthetic plan and risks discussed with patient of whom consent was obtained. . documented in this encounter Plan of Treatment Upcoming Encounters Date Type Department Care Team (Chelle hollingsworth Contact Info) Description 05/15/2024 3:30 PM OPERA SINGER Appointment [place] [address] Pankaj Rosenberg MD [address] [address] 05/25/2024 12:45 PM OPERA SINGER Office Visit [facility] Physical Therapy [address] [place] [address] Pankaj Rosenberg MD [address] [place] [address] Maya Magaña, [place] [address] 05/30/2024 3:40 PM OPERA SINGER Office Visit [facility] Medical Group Multispecialty Care - [address] [address] Pankaj Rosenberg MD [facility] [address] 06/20/2024 3:40 PM OPERA SINGER Telemedicine [facility] [place] - [address] [address] Pankaj Rosenberg MD [facility] [address] [address] 06/21/2024 1:00 PM OPERA SINGER Office Visit [facility] Medical Group Orthopedic & Sports Medicine - [place] [address] [place] [address] Jose Ratliff MD [address] [address] [place] [address] 03/27/2025 1:00 PM OPERA SINGER Office Visit [facility] Medical Group Multispecialty Care - [facility] [address] [place] [address] Bob Oneal MD [address] [facility] [address] [place] [address] documented as of this encounter Visit Diagnoses [...] Bag 09/02/2023 11:30 AM CDT 10 mL/hr lidocaine (PF) (XYLOCAINE) 1 % injection Intravenous, PRN, Starting on Tue09/02/23 at 1153, Until Tue09/02/23 at 1212, Anesthesia Intra-Op Given 09/02/2023 11:53 AM CDT 100 mg propofol (DIPRIVAN) IV bolus Intravenous, PRN, Starting on Tue09/02/23 at 1153, Until Tue09/02/23 at 1212, Anesthesia Intra-Op Given 09/02/2023 12:10 PM CDT 50 mg Given 09/02/2023 12:07 PM CDT 50 mg Given 09/02/2023 12:04 PM CDT 50 mg documented in this encounter Additional Health Concerns Assessment Noted Time PHQ-9 Depression Total Score: 4 06/15/19 24 9:40 AM OPERA SINGER documented as of this encounter Care Teams Enterprise Architect Manager Relationship Specialty Start Date End Date Pankaj Rosenberg MD [address] [facility] [address] [place] [address] PCP - General INTERNAL MEDICINE 06/15/21 documented as of this encounter
--- OUTSIDE RECORDS SUMMARY | 2024-05-13 10:44 | XMS_ITS | Encounter Summary ---
Author Organization [facility] Address [address] [place] [address]. [place], [place] [address] [place] [address] Care Team Providers Care Recreation Engineer Name Role Phone Pankaj Rosenberg MD Primary Care Provider [phone] Encounter Details Date Type Department Care Team (Latest Contact Info) Description 10/21/2023 Travel Social History Tobacco Use Types Packs/Day Years Used Date Smoking Tobacco: Never Smokeless Tobacco: Former Snuff, Chew Quit: 08/14/2020 Comments:counseled by Dr Sammie gallardo Alcohol Use Standard Drinks/Week Comments Yes 5 (1 standard drink = 0.6 oz pur e alcohol) socially on weekends PHQ-2 Answer Date Recorded Patient Health Questionnaire-2 Score 0 10/21/2023 Sex and Gender Information Value Date Recorded Sex Assigned at Not on file Legal Sex Male 2:58 PM FINAL DRESSING CUTTER Gender Identity Male 07/13/2021 5:19 AM FINAL DRESSING CUTTER Sexual Orientation Straight 07/13/2021 5: 19 AM FINAL DRESSING CUTTER documented as of this encounter Plan of Treatment Upcoming Encounters Date Type Department Care Team (Late st Contact Info) Description 05/15/2024 3:30 PM FINAL DRESSING CUTTER Appointment [facility] [place] [address] Pankaj Rosenberg MD [address] [address] 05/25/2024 12:45 PM FINAL DRESSING CUTTER Office Visit [facility] Physical Therapy [address] [address] Pankaj Rosenberg MD [address] [address] Maya Magaña, [place] [address] 05/30/2024 3:40 PM FINAL DRESSING CUTTER Office Visit [facility] Medical [facility] Multispecialty Care - [place] [address] [address] [place] [address] Pankaj Rosenberg MD [address] [address] 06/20/2024 3:40 PM FINAL DRESSING CUTTER [facility]medicine [facility] [place] - [place] [address] [address] [place] [address] Pankaj Rosenberg MD [address] [address] 06/21/2024 1:00 PM FINAL DRESSING CUTTER Office Visit [facility] Medical Group Orthopedic & Sports Medicine - [place] [address] [place] [address] Jose Ratliff MD [id number] [place] [address] 03/27/2025 1:00 PM FINAL DRESSING CUTTER Office Visit [facility] Medical [facility] Multispecialty Care - [facility] [address] [facility] [address] [place] [address] Bob Oneal MD 3 [facility] [address] [place] [address] documented as of this encounter Visit Diagnoses Not on filedocumented in this encounter Additional Health Concerns Assessment Noted Time PHQ-9 Depression Total Score: 4 06/15/19 24 9:40 AM FINAL DRESSING CUTTER documented as of this encounter Care Teams Recreation Engineer Relationship Specialty Start Date End Date Pankaj Rosenberg MD [address] [address] PCP - General INTERNAL MEDICINE 06/15/21 documented as of this encounter
--- OUTSIDE RECORDS SUMMARY | 2024-05-13 10:44 | XMS_ITS | Encounter Summary ---
Author Organization [facility] Address [address] [place] [address]. [place], [place] [address] [place] [address] Care Team Providers Care Assistant Gm Of Content & Delivery Name Role Phone Pankaj Rosenberg MD Primary Care Provider [phone] Encounter Details Date Type Department Care Team (Late st Contact Info) Description 07/21/2023 MyChart Message Enc [facility] Medical Group Multispecialty Care - [place] [address] [address] [place], [place] [address] Pankaj Rosenberg MD [address] [place] [address] [place], [place] [phone] Results Social History Tobacco Use Types Packs/Day [...] on file Legal Sex Male 2:58 PM SLITTER CREASER SLOTTER OPERATOR Gender Identity Male 07/13/2021 5:19 AM SLITTER CREASER SLOTTER OPERATOR Sexual Orientation Straight 07/13/2021 5: 19 AM SLITTER CREASER SLOTTER OPERATOR documented as of this encounter Plan of Treatment Upcoming Encounters Date Type Department Care Team (Late st Contact Info) Description 05/15/2024 3:30 PM SLITTER CREASER SLOTTER OPERATOR Appointment [facility] [place] [address] Pankaj Rosenberg MD [address] [address] 05/25/2024 12:45 PM SLITTER CREASER SLOTTER OPERATOR Office Visit [facility] Physical Therapy [address] [place] [address] Pankaj Rosenberg MD [address] [address] Maya Magaña, [place] [address] 05/30/2024 3:40 PM SLITTER CREASER SLOTTER OPERATOR Office Visit [facility] Medical [facility] Multispecialty Care - [place] [address] [address] [place] [address] Pankaj Rosenberg MD [facility] [address] [address] 06/20/2024 3:40 PM SLITTER CREASER SLOTTER OPERATOR Telemedicine [facility] Medical [facility] Multispecialty Care - [place] [address] [address] [place] [address] Pankaj Rosenberg MD [address] [address] 06/21/2024 1:00 PM SLITTER CREASER SLOTTER OPERATOR Office Visit [facility] Medical Group Orthopedic & Sports Medicine - [place] [address] [place] [address] Jose Ratliff MD [address] [address] [place] [address] 03/27/2025 1:00 PM SLITTER CREASER SLOTTER OPERATOR Office Visit [facility] Medical Group Multispecialty Care - [facility] [address] [facility], [address] [place] [address] Bob Oneal MD [address] [facility] [address] [place] [address] documented as of this encounter Visit Diagnoses Not on filedocumented in this encounter Additional Health Concerns Assessment Noted Time PHQ-9 Depression Total Score: 4 06/15/19 24 9:40 AM SLITTER CREASER SLOTTER OPERATOR documented as of this encounter Care Teams Assistant Gm Of Content & Delivery Relationship Specialty Start Date End Date Pankaj Rosenberg MD [address] [facility] [address] [place] [address] PCP - General INTERNAL MEDICINE 06/15/21 documented as of this encounter
--- OUTSIDE RECORDS SUMMARY | 2024-05-13 10:44 | XMS_ITS | Encounter Summary ---
Author Organization [facility] Address [address] [place] [address]. [place], [place] [address] [place] [address] Care Team Providers Care Welt Slasher Name Role Phone Pankaj Rosenberg MD Primary Care Provider [phone] Reason for Visit * Reason Onset Date Comments Information 07/15/2023 Encounter Details Date Type Department Care Team (Late st Contact Info) Description 07/15/2023 Telephone [facility] Medical Group Multispecialty Care - [place] [address] [address] [place] [address] Pankaj Rosenberg MD [address] [place] [address] [place] [address] Information Social History Tobacco Use [...] on file Legal Sex Male 2:58 PM VIDEO JOURNALIST Gender Identity Male 07/13/2021 5:19 AM VIDEO JOURNALIST Sexual Orientation Straight 07/13/2021 5: 19 AM VIDEO JOURNALIST documented as of this encounter Progress Notes * Bertha Bonilla MA - 07/15/2023 12:43 PM CST Spoke with patient and he said he has an appointment with you Tuesday and doesn't want to go to the er O JOURNALIST * Bertha Bonilla MA - 07/15/2023 12:42 PM CST ----- Message from Pankaj Rosenberg MD sent at 07/14/2023 5:29 PM VIDEO JOURNALIST ----- ER aneta for abdominal pain please thanks. ----- Message ----- From: Artur Cruz Sent: 07/14/2023 9:39 AM VIDEO JOURNALIST To: Pankaj Rosenberg MD O JOURNALIST documented in this encounter Plan of Treatment Upcoming Encounters Date Type Department Care Team (Late st Contact Info) Description 05/15/2024 3:30 PM VIDEO [place] [address] Pankaj Rosenberg MD [address] [place] [address] 05/25/2024 12:45 PM VIDEO JOURNALIST Office Visit [facility] Physical [facility] [address] [place] [address] Pankaj Rosenberg MD [address] [place] [address] Maya Magaña, [place] [address] 05/30/2024 3:40 PM VIDEO JOURNALIST Office Visit [facility] Medical Group Multispecialty Care - [place] [address] [address] [place] [address] Pankaj Rosenberg MD [address] [place] [address] 06/20/2024 3:40 PM VIDEO JOURNALIST Telemedicine [facility] Multispecialty Care - [place] [address] [address] [place] [address] Pankaj Rosenberg MD [address] [address] 06/21/2024 1:00 PM VIDEO JOURNALIST Office Visit [facility] Orthopedic & Sports Medicine - [place] [address] [place] [address] Jsoe Ratliff MD [address] [place] [address] [place] [address] 03/27/2025 1:00 PM VIDEO JOURNALIST [facility] [address] [facility] [place] [address] Bob Oneal MD 3 [facility] [address] [place] [address] documented as of this encounter Visit Diagnoses Not on filedocumented in this encounter Additional Health Concerns Assessment Noted Time PHQ-9 Depression Total Score: 4 06/15/19 24 9:40 AM VIDEO JOURNALIST documented as of this encounter Care Teams Welt Slasher Relationship Specialty Start Date End Date Pankaj Rosenberg MD [address] [facility] [address] [place] [address] PCP - General INTERNAL MEDICINE 06/15/21 documented as of this encounter
--- OUTSIDE RECORDS SUMMARY | 2024-05-13 10:44 | XMS_ITS | Encounter Summary ---
Author Organization [facility] - [facility] Address [address] [place] [address]. [place], [place] [address] [place] [address] Care Team Providers Care Senior Linux Systems Administrator Name Role Phone Pankaj Rosenberg MD Primary Care Provider [phone] Reason for Visit * Reason Comments Allied Health Visit Pt is here for lab w ork Encounter Details Date Type Department Care Team (Latest Contact Info) Description 11/30/2023 9:00 AM CDT Allied Health/Nurse Visit [facility] Medical Group Multispecialty Care - [place] [address] [address] [place] [address] Pankaj Rosenberg MD [address] [place] [address] 157 [place], [place] [phone] Allied Health Visit (Pt is here for lab work) Social History Tobacco Use Types Packs/Day Years [...] on file Legal Sex Male 2:58 PM ELECTRICIAN CONTROL EQUIPMENT Gender Identity Male 07/13/2021 5:19 AM ELECTRICIAN CONTROL EQUIPMENT Sexual Orientation Straight 07/13/2021 5: 19 AM ELECTRICIAN CONTROL EQUIPMENT documented as of this encounter Progress Notes * Isela Daiyl MA - 11/30/2023 9:00 AM CDT Pt is here for lab work documented in this encounter Plan of Treatment Upcoming Encounters Date Type Department Care Team (Late st Contact Info) Description 05/15/2024 3:30 PM ELECTRICIAN CONTROL EQUIPMENT Appointment [facility] [place] [address] Pankaj Rosenberg MD [address] [place] [address] 05/25/2024 12:45 PM ELECTRICIAN CONTROL EQUIPMENT Office Visit [facility] Physical Therapy [address] [place] [address] Pankaj Rosenberg MD [address] [place] [address] Maya Magaña, [place] [address] 05/30/2024 3:40 PM ELECTRICIAN CONTROL EQUIPMENT Office Visit [facility] Medical [facility] Multispecialty Care - [place] [address] [place] [address] Pankaj Rosenberg MD Critical access hospital[address] [address] 06/20/2024 3:40 PM ELECTRICIAN CONTROL EQUIPMENT [facility] - [place] [address] [address] [place] [address] Pankaj Rosenberg MD [address] [place] [address] 06/21/2024 1:00 PM ELECTRICIAN CONTROL EQUIPMENT Office Visit [facility] Medical Group Orthopedic & Sports Medicine - [address] [place] [address] Jose Ratliff MD [address] [address] [place] [address] 03/27/2025 1:00 PM ELECTRICIAN CONTROL EQUIPMENT Office Visit [facility] Medical Group Multispecialty Care - [facility] [address] [facility] [address] [place] [address] Bob Oneal MD [address] [facility] [address] [place] [address] documented as of this encounter Procedures Procedure Name Priority Date/Time Associated Diagnosis Comments TSH W/REFLEX Routine 11/30/2023 9:12 AM CDT Annual physical exam General medical exam Screening for hypothyroidism HEMOGLOBIN, GLYCOSYLATED Routine 11/30/2023 9:12 AM CDT Annual physical exam General medical exam Screening for diabetes mellitus COMPREHENSIVE METABOLIC PANEL Routine 11/30/2023 9:12 AM CDT Annual physical exam General medical exam LIPID PANEL Routine 11/30/2023 9:12 AM CDT Annual physical exam General medical exam Screening for hyperlipidemia CBC W/DIFF AUTOMATED Routine 11/30/2023 9:12 AM CDT Annual physical exam General medical exam VENIPUNC ARM DRAW Routine 11/30/2023 9: 05 AM CDT Annual physical exam documented in this encounter Results * (ABNORMAL) HEMOGLOBIN, GLYCOSYLATED (11/30/2023 9:12 AM CDT) HGB A1C 6.0 4.5 - 6.2 % 11/30/2023 7:35 PM CDT [facility] ESTIMATED AVG GLUCOSE 126(H) 74 - 106 MG/DL 11/30/2023 7:35 PM CDT [facility] 11/30/2023 9:12 AM CDT us Pankaj Rosenberg MD LABORATORY Final Result Performing Organization Address [facility]/ZIP Co de Phone Number [facility] [address] [place] [address], [place] [phone] * TSH W/REFLEX (11/30/2023 9:12 AM CDT) TSH 1.753 0.358 - 3.740 uIU/ML 11/30/2023 3:42 PM CDT [facility] 11/30/2023 9:12 AM CDT us Pankaj Rosenberg MD LABORATORY Final Result Performing Organization Address [facility] Co de Phone Number [place] [phone] [place] [address], [place] [phone] * (ABNORMAL) LIPID PANEL (11/30/2023 9:12 AM CDT) CHOLESTEROL 146 <200 MG/DL 11/30/2023 3:42 PM CDT [facility] TRIGLYCERIDES 131 <150 MG/DL 11/30/2023 3:42 PM CDT [facility] HDL 39(L) >40 MG/DL 11/30/2023 3:42 PM CDT [facility] LDL-C 81 <100 MG/DL 11/30/2023 3:42 PM CDT [facility] VLDL CALCULATION 26 5 - 28 MG/DL 11/30/2023 3:42 PM CDT [facility] CHOL/HDL RATIO 3.7 0.0 - 4.0 11/30/2023 3:42 PM CDT [facility] LDL/HDL 2.1 0.41 - 2.13 11/30/2023 3:42 PM CDT [facility] NON HDL CHOLESTEROL 107 <140 MG/DL 11/30/2023 3:42 PM CDT [facility] 11/30/2023 9:12 AM CDT Pankaj Rosenberg MD LABORATORY Final Result [facility] [place] [address] [place] [address], * (ABNORMAL) COMPREHENSIVE METABOLIC PANEL (11/30/2023 9:12 AM CDT) Pathologist [facility] SODIUM S/P/B 138 136 - 145 MMOL/L 11/30/2023 3:42 PM CDT -[facility] POTASSIUM S/P/B 4.6 3.5 - 5.1 MMOL/L 11/30/2023 3:42 PM CDT -[facility] CHLORIDE S/P/B 102 98 - 107 MMOL/L 11/30/2023 3:42 PM CDT -[facility] CO2 26.6 21 - 32 MMOL/L 11/30/2023 3:42 PM CDT [facility] GLUCOSE 108(H) 70 - 99 MG/DL 11/30/2023 3:42 PM CDT [facility] BUN 14 7 - 18 MG/DL 11/30/2023 3:42 PM CDT [facility] CREATININE S/P/B 0.85 0.70 - 1.30 MG/DL 11/30/2023 3:42 PM CDT [facility] [place] CALCIUM S/P/B 9.1 8.4 - 10.5 MG/DL 11/30/2023 3:42 PM CDT [facility] BILIRUBIN TOTAL S/P/B 0.5 0.2 - 1.0 MG/DL 11/30/2023 3:42 PM CDT [facility] [place] ALKALINE PHOSPHATASE S/P/B 115 45 - 115 U/L 11/30/2023 3:42 PM CDT [facility] [place] AST 19 15 - 37 U/L 11/30/2023 3:42 PM CDT [facility] [place] ALT 55 16 - 63 U/L 11/30/2023 3:42 PM CDT [facility] [place] TOTAL PROTEIN S/P/B 7.8 6.4 - 8.2 G/DL 11/30/2023 3:42 PM CDT [facility] [place] ALBUMIN S/P/B 3.8 3.4 - 5.0 G/DL 11/30/2023 3:42 PM T [facility] ANION GAP 9.4 5 - 15 MMOL/L 11/30/2023 3:42 PM T [facility] Comment:REFERENCE RANGE NOT ESTABLISHED OSMOLALITY (CALC) 287 MOSM/KG 024 3:42 PM T [facility] Comment:REFERENCE RANGE NOT ESTABLISHED GFR ESTIMATE >90 >90 ML/MIN/1. 73 M2 11/30/2023 3:42 PM T [facility] GFR NOTES GFR REFERENCE S: 11/30/2023 3:42 PM T [facility] Comment: THE ESTIMATED GFR IS CALCULATED USING [...] <15 ml/min/1.73 m2 11/30/2023 9:12 AM CDT Pankaj Rosenberg MD LABORATORY Final Result [facility] [place] [address] [place] [address], * (ABNORMAL) CBC W/DIFF AUTOMATED (11/30/2023 9:12 AM CDT) WBC 6.20 4.00 - 10.80 x10'3/uL 11/30/2023 4:27 PM CDT [facility] RBC 5.14 4.50 - 6.10 x10'6/uL 11/30/2023 4:27 PM CDT [facility] HGB 13.7 13.0 - 18.0 G/DL 11/30/2023 4:27 PM CDT [facility] HCT 42.5 37.0 - 52.0 % 11/30/2023 4:27 PM CDT [facility] MCV 82.7 78.0 - 100.0 FL 11/30/2023 4:27 PM CDT [facility] MCH 26.7(L) 27.0 - 31.0 PG 11/30/2023 4:27 PM CDT [facility] MCHC 32.2(L) 33.0 - 36.0 G/DL 11/30/2023 4:27 PM CDT [facility] RDW 13.7 11.5 - 14.5 % 11/30/2023 4:27 PM CDT [facility] PLT 330 150 - 350 x10'3/uL 11/30/2023 4:27 PM CDT [facility] MPV 10.4 7.4 - 10.4 FL 11/30/2023 4:27 PM CDT [facility] DIFFERENTIAL TYPE AUTOMATED DIFFERENTIAL 11/30/2023 4:27 PM CDT [facility] NEUTROPHILS % 61.6 % 11/30/2023 4:27 PM CDT -[facility] LYMPHOCYTES % 26.1 % 11/30/2023 4:27 PM CDT -[facility] MONOCYTES % 9.0 % 11/30/2023 4:27 PM CDT -[facility] EOSINOPHILS % 2.3 % 11/30/2023 4:27 PM CDT -[facility] BASOPHILS % 0.5 % 11/30/2023 4:27 PM CDT -[facility] IMMATURE GRANS % 0.5 % 11/30/2023 4:27 PM CDT [facility] ABS. NEUTROPHILS 3.82 1.60 - 8.30 x10'3/uL 11/30/2023 4:27 PM CDT [facility] ABS. LYMPHOCYTES 1.62 0.80 - 4.70 x10'3/uL 11/30/2023 4:27 PM CDT -[facility] ABS. MONOCYTES 0.56 0.00 - 1.50 x10'3/uL 11/30/2023 4:27 PM CDT [facility] ABS. EOSINOPHILS 0.14 0.00 - 0.40 x10'3/uL 11/30/2023 4:27 PM CDT [facility] ABS. BASOPHILS 0.03 0.00 - 0.20 x10'3/uL 11/30/2023 4:27 PM CDT [facility] ABS. IMMATURE GRANULOCYTES 0.03 0.00 - 0.03 x10'3/uL 11/30/2023 4:27 PM CDT [facility] 11/30/2023 9:12 AM CDT us Pankaj Rosenberg MD LABORATORY Final Result [facility] [address] [place] [address], documented in this encounter Visit Diagnoses Diagnosis Annual physical exam- Primary Routine general medical examination at a health care facility General medical exam Unspecified general medical examination Screening for hyperlipidemia Screening for lipoid disorders Screening for hypothyroidism Screening for thyroid disorder Screening for diabetes mellitus documented in this encounter Additional Health Concerns Assessment Noted Time PHQ-9 Depression Total Score: 4 06/15/19 24 9:40 AM ELECTRICIAN CONTROL EQUIPMENT documented as of this encounter Care Teams Senior Linux Systems Administrator Relationship Specialty Start Date End Date Pankaj Rosenberg MD [address] [address] PCP - General INTERNAL MEDICINE 06/15/21 documented as of this encounter
--- OUTSIDE RECORDS SUMMARY | 2024-05-13 10:44 | XMS_ITS | Encounter Summary ---
Author Organization [facility] Address [address] [place] [address]. [place], [place] [address] [place] [address] Care Team Providers Care Director Of Marketing Communications Name Role Phone Pankaj Rosenberg MD Primary Care Provider [phone] Reason for Visit * Reason Onset Date Comments Medication 06/03/2023 Encounter Details Date Type Department Care Team (Late st Contact Info) Description 06/03/2023 Telephone [facility] Medical Group Multispecialty Care - [place] [address] [address] [place] [address] Pankaj Rosenberg MD [address] [place] [address] [address] [place], [place] [id number] Medication Social History Tobacco Use Types Packs/Day Years Used Date Smoking Tobacco: Never Smokeless Tobacco: Former Snuff, Chew Quit: 08/14/2020 Comments:counseled by Dr Sammie gallardo Alcohol Use Standard Drinks/Week Comments Yes 5 (1 standard drink = 0.6 oz pur e alcohol) socially on weekends PHQ-2 Answer Date Recorded Patient Health Questionnaire-2 Score 1 03/09/2023 Sex and Gender Information Value Date Recorded Sex Assigned at Not on file Legal Sex Male 2:58 PM TRUCK REPAIR SUPERVISOR Gender Identity Male 07/13/2021 5:19 AM TRUCK REPAIR SUPERVISOR Sexual Orientation Straight 07/13/2021 5: 19 AM TRUCK REPAIR SUPERVISOR documented as of this encounter Progress Notes * Bertha Bonilla MA - 06/03/2023 12:34 PM CST Spoke with patient and informed him of his medication sent to pharmacy K REPAIR SUPERVISOR * Bertha Bonilla MA - 06/03/2023 12:34 PM CST ----- Message from Pankaj Rosenberg MD sent at 06/03/2023 11:54 AM TRUCK REPAIR SUPERVISOR ----- Omeprazole sent. ----- Message ----- From: Bertha Bonilla MA Sent: 06/03/2023 9:29 AM TRUCK REPAIR SUPERVISOR To: Pankaj Rosenberg MD ----- Message from Bertha Bonilla MA sent at 06/03/2023 9:29 AM TRUCK REPAIR SUPERVISOR ----- Thanks for the update. If he still has any issues with this elizondo to let me know. Thank you again. ----- Message ----- From: Bertha Bonilla MA Sent: 06/02/2023 12:13 PM TRUCK REPAIR SUPERVISOR To: Pankaj Rosenberg MD K REPAIR SUPERVISOR documented in this encounter Plan of Treatment Upcoming Encounters Date Type Department Care Team (Late st Contact Info) Description 05/15/2024 3:30 PM TRUCK REPAIR SUPERVISOR Appointment [facility] [place] [address] Pankaj Rosenberg MD [address] [phone] 05/25/2024 12:45 PM TRUCK REPAIR SUPERVISOR Office Visit [facility] Physical Therapy [address] [place] [phone] Pankaj Rosenberg MD [address] [phone] Maya Magaña, [place] [address] 05/30/2024 3:40 PM TRUCK REPAIR SUPERVISOR Office Visit [facility] Multispecialty Care - [place] [address] [address] [place] [address] Pankaj Rosenberg MD [address] [address] 06/20/2024 3:40 PM TRUCK REPAIR SUPERVISOR Telemedicine [facility] Multispecialty [facility] - [place] [address] [address] [place] [address] Pankaj Rosenberg MD [address] [address] 06/21/2024 1:00 PM TRUCK REPAIR SUPERVISOR Office Visit [facility] Orthopedic & Sports Medicine - [place] [address] [place] [address] Jose Ratliff MD [address] [address] [place] [address] 03/27/2025 1:00 PM TRUCK REPAIR SUPERVISOR Office Visit [facility] Multispecialty Care - [facility] [address] [facility], [address] [place] [address] Bob Oneal MD 3 [facility] [address] [place] [address] documented as of this encounter Visit Diagnoses Not on filedocumented in this encounter Additional Health Concerns Assessment Noted Time PHQ-9 Depression Total Score: 2 03/09/20 23 2:22 PM CDT documented as of this encounter Care Teams Director Of Marketing Communications Relationship Specialty Start Date End Date Pankaj Rosenberg MD [address] [place] [address] PCP - General INTERNAL MEDICINE 06/15/21 documented as of this encounter
--- OUTSIDE RECORDS SUMMARY | 2024-05-13 10:44 | XMS_ITS | Encounter Summary ---
Author Organization [facility] Address [address] [place] [address]. [place], [place] [address] [place] [address] Care Team Providers Care Balance Staff Staker Name Role Phone Pankaj Rosenberg MD Primary Care Provider [phone] Encounter Details Date Type Department Care Team (Latest Contact Info) Description 11/30/2023 Travel Social History Tobacco Use Types Packs/Day [...] on file Legal Sex Male 2:58 PM HEALTH ANALYTICS CONSULTANT Gender Identity Male 07/13/2021 5:19 AM HEALTH ANALYTICS CONSULTANT Sexual Orientation Straight 07/13/2021 5: 19 AM HEALTH ANALYTICS CONSULTANT documented as of this encounter Plan of Treatment Upcoming Encounters Date Type Department Care Team (Late st Contact Info) Description 05/15/2024 3:30 PM HEALTH ANALYTICS CONSULTANT Appointment [facility] [place] [address] Pankaj Rosenberg MD [address] [address] 05/25/2024 12:45 PM HEALTH ANALYTICS CONSULTANT Office Visit [facility] Physical Therapy [address] [address] Pankaj Rosenberg MD [address] [address] Maya Magaña, [place] [address] 05/30/2024 3:40 PM HEALTH ANALYTICS CONSULTANT Office Visit [facility] Medical [facility] Multispecialty Care - [place] [address] [address] [place] [address] Pankaj Rosenberg MD [address] [address] 06/20/2024 3:40 PM HEALTH ANALYTICS CONSULTANT [facility] - [place] [address] [address] [place] [address] Pankaj Rosenberg MD [address] [address] 06/21/2024 1:00 PM HEALTH ANALYTICS CONSULTANT Office Visit [facility] Medical Group Orthopedic & Sports Medicine - [place] [address] [place] [address] Jose Ratliff MD [phone] [place] [address] 03/27/2025 1:00 PM HEALTH ANALYTICS CONSULTANT Office Visit [facility] Medical [facility] Multispecialty Care - [facility] 3 [facility] [address] [place] [address] Bob Oneal MD 3 [facility] [address] [place] [address] documented as of this encounter Visit Diagnoses Not on filedocumented in this encounter Additional Health Concerns Assessment Noted Time PHQ-9 Depression Total Score: 4 06/15/19 24 9:40 AM HEALTH ANALYTICS CONSULTANT documented as of this encounter Care Teams Balance Staff Staker Relationship Specialty Start Date End Date Pankaj Rosenberg MD [address] [address] PCP - General INTERNAL MEDICINE 06/15/21 documented as of this encounter
--- OUTSIDE RECORDS SUMMARY | 2024-05-13 10:44 | XMS_ITS | Encounter Summary ---
Author Organization [facility] Address [address] [place] [address]. [place] [address] [place] [address] Care Team Providers Care Lmsw Name Role Phone Pankaj Rosenberg MD Primary Care Provider [phone] Reason for Visit * Reason Onset Date Comments Results 08/31/2023 Returned Call 08/31/2023 Encounter Details Date Type Department Care Team (Late st Contact Info) Description 08/31/2023 Telephone [facility] Medical Group Multispecialty Care - [facility] [address] [facility], [address] [place] [phone] Carolyn Rutledge NP 3 [facility] [address] [place] [address] Results; Returned Call Social History Tobacco Use Types Packs/Day Years [...] on file Legal Sex Male 2:58 PM DATA SYSTEMS ANALYST Gender Identity Male 07/13/2021 5:19 AM DATA SYSTEMS ANALYST Sexual Orientation Straight 07/13/2021 5: 19 AM DATA SYSTEMS ANALYST documented as of this encounter Progress Notes * Noa Guardado - 08/31/2023 10:44 AM CDT Pt returned missed call from Mariajose Billy * Dorothea Croreia MA - 08/31/2023 9:53 AM CDT LVM(results)----- Message from Carolyn Rutledge NP sent at 08/31/2023 8:30 AM CDT ----- Regarding: Notification of Unviewed Test Results Contact: See below documented in this encounter Plan of Treatment Upcoming Encounters Date Type Department Care Team (Late st Contact Info) Description 05/15/2024 3:30 PM DATA SYSTEMS ANALYST Appointment [facility] [place] [address] Pankaj Rosenberg MD [address] [place] [address] 05/25/2024 12:45 PM DATA SYSTEMS ANALYST Office Visit [facility] Physical Therapy [address] [place] [address] Pankaj Rosenberg MD [address] [place] [address] Maya Magaña, [place] [address] 05/30/2024 3:40 PM DATA SYSTEMS ANALYST Office Visit [facility] Medical Group Multispecialty Care - [place] [address] [address] [place] [address] Pankaj Rosenberg MD [address] [place] [address] [place] [address] 06/20/2024 3:40 PM DATA SYSTEMS ANALYST Telemedicine [facility] Multispecialty [facility] - [place] [address] [address] [place] [address] Pankaj Rosenberg MD [address] [address] 06/21/2024 1:00 PM DATA SYSTEMS ANALYST Office Visit [facility] Orthopedic & Sports Medicine - [place] [address] [place] [address] Jose Ratliff MD [address] [address] [place] [address] 03/27/2025 1:00 PM DATA SYSTEMS ANALYST Office Visit [facility] Multispecialty [facility] - [facility] 3 [facility] [address] [place] [address] Bob Oneal MD 3 [facility] [address] [place] [address] documented as of this encounter Visit Diagnoses Not on filedocumented in this encounter Additional Health Concerns Assessment Noted Time PHQ-9 Depression Total Score: 4 06/15/19 24 9:40 AM DATA SYSTEMS ANALYST documented as of this encounter Care Teams Lmsw Relationship Specialty Start Date End Date Pankaj Rosenberg MD [address] [place] [address] PCP - General INTERNAL MEDICINE 06/15/21 documented as of this encounter
--- OUTSIDE RECORDS SUMMARY | 2024-05-13 10:44 | XMS_ITS | Encounter Summary ---
Author Organization [facility] Address [address] [place] [address]. [place], [place] [address] [place] [address] Care Team Providers Care Seafood Processor Name Role Phone Pankaj Rosenberg MD Primary Care Provider [phone] Encounter Details Date Type Department Care Team (Latest Contact Info) Description 09/02/2023 Travel Social History Tobacco Use Types Packs/Day [...] on file Legal Sex Male 2:58 PM SOCK IRONER Gender Identity Male 07/13/2021 5:19 AM SOCK IRONER Sexual Orientation Straight 07/13/2021 5: 19 AM SOCK IRONER documented as of this encounter Plan of Treatment Upcoming Encounters Date Type Department Care Team (Late st Contact Info) Description 05/15/2024 3:30 PM SOCK IRONER Appointment [facility] [place] [address] Pankaj Rosenberg MD [address] [address] 05/25/2024 12:45 PM SOCK IRONER Office Visit [facility] Physical Therapy [address] [address] Pankaj Rosenberg MD [address] [address] Maya Magaña, [place] [address] 05/30/2024 3:40 PM SOCK IRONER Office Visit [facility] Medical [facility] Multispecialty Care - [place] [address] [address] [place] [address] Pankaj Rosenberg MD [address] [address] 06/20/2024 3:40 PM SOCK IRONER [facility] - [place] [address] [address] [place] [address] Pankaj Rosenberg MD [address] [address] 06/21/2024 1:00 PM SOCK IRONER Office Visit [facility] Medical Group Orthopedic & Sports Medicine - [place] [address] [place] [address] Jose Ratliff MD [phone] [place] [address] 03/27/2025 1:00 PM SOCK IRONER Office Visit [facility] Medical [facility] Multispecialty Care - [facility] 3 [facility] [address] [place] [address] Bob Oneal MD 3 [facility] [address] [place] [address] documented as of this encounter Visit Diagnoses Not on filedocumented in this encounter Additional Health Concerns Assessment Noted Time PHQ-9 Depression Total Score: 4 06/15/19 24 9:40 AM SOCK IRONER documented as of this encounter Care Teams Seafood Processor Relationship Specialty Start Date End Date Pankaj Rosenberg MD [address] [address] PCP - General INTERNAL MEDICINE 06/15/21 documented as of this encounter
--- OUTSIDE RECORDS SUMMARY | 2024-05-13 10:44 | XMS_ITS | Encounter Summary ---
Author Organization [facility] Address [address] [place] [address]. [place], [place] [id number] [place] [address] Care Team Providers Care Catholic Priest Name Role Phone Pankaj Rosenberg MD Primary Care Provider [phone] Reason for Referral * Imaging (Routine) - Closed Specialty Diagnoses / Procedures Referred By Contac t Referred To Contact RADIOLOGY Diagnoses Epigastric pain Generalized abdominal pain Rectal bleeding Constipation, unspecified constipation type SBO (small bowel obstruction) ([facility]/HCC [facility]) Procedures CT ABD+PEL W CON Chaparro Rutledge, SHERRY 3 [facility] [address] [place] [address] Phone: tel: fax: Referral ID Status Reason Start Date Expiration Date Visits Re quested Visits Authorized [id number] Closed 08/09/2023 08/09/2024 1 1 Reason for Visit * Reason Comments Abdominal Pain Nausea Hx of bowel obstruct ion * Consultation (Urgent) - Authorized Specialty Diagnoses / Procedures Referred By Contac t Referred To Contact GASTROENTEROLOGY Diagnoses Abdominal pain, unspecified abdominal location Pankaj Rosenberg MD [address] [place] [address] Phone: tel: fax: [facility] - [address] [address] Phone: tel: fax: Referral ID Status Reason Start Date Expiration Date Visits Requested Visits Authorized [id number] Authorized Specialty Services 07/21/2023 07/20/2024 99 99 Encounter Details Date Type Department Care Team (Latest Contact Info) Description 08/09/2023 1:40 PM CDT Office Visit [facility] Medical [facility] Multispecialty Care - [facility] [address] [place] [phone] Pankaj Rosenberg MD [address] [facility] [address] [place] [address] Chaparro Rutledge NP 3 [facility] [address] [place] [address] Abdominal Pain; Nausea (Hx of bowel obstruction) Social History Tobacco Use Types Packs/Day Years [...] on file Legal Sex Male 2:58 PM NEURODIAGNOSTIC TECH Gender Identity Male 07/13/2021 5:19 AM NEURODIAGNOSTIC TECH Sexual Orientation Straight 07/13/2021 5: 19 AM NEURODIAGNOSTIC TECH documented as of this encounter Last Filed Vital Signs Vital Sign Reading Time Taken Comments Blood Pressure 137/88 08/09/2023 2:26 PM CDT Pulse 90 08/09/2023 1:35 PM CDT Temperature 37.1 ??C (98.8 ??F) 08/09/2023 1:35 PM CD T Respiratory Rate - - Oxygen Saturation 98% 08/09/2023 1:35 PM CDT Inhaled Oxygen Concentration - - Weight 114.9 kg (253 lb 4.8 oz) 08/09/2023 1:35 PM CDT Height 180.3 cm (5' 11 ) 08/09/2023 1:35 PM CDT Body Mass Index 35.33 08/09/2023 1:35 PM CDT documented in this encounter Patient Instructions * Attachments The following attachments cannot be sent through Care Everywhere. * Acid reflux and GERD in adults (Setswana) documented in this encounter Progress Notes * Chaparro Rutledge, SHERRY - 08/09/2023 1:40 PM CDT Images from the original note were not included. GASTROENTEROLOGY CONSULT 08/09/2023 2:24 PM Reason for Visit: Abdominal Pain and Nausea (Hx of bowel obstruction) History of Present Illness: Chuck Barlow is a 28-year-old male who presents today for evaluation of abdominal pain. Referral placed by PCP Dr. Rosenberg. Reports chronic abdominal and epigastric pain with recent flare lasting over a month. Previous flares only lasted a few days at a time. C/O constant burning pain in his epigastric region. Has been taking prescribed pantoprazole 40 mg daily for several yrs. Had a negative EGD in 08/2021 and recently tested neg for H. Pylori. Denies any dysphagia or frequent heartburn symptoms. Has a h/o multiple SBO starting when he was young. 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 He had a small bowel obstruction requiring partial resection of the small bowel in 09/2021 at [facility]. Surgeon did discuss further surgery to remove suspected scarring and adhesions from earlier surgeries but patient declined any additional surgery at that time. H/O gallbladder polyp, he had his gallbladder removed in 2022. Post cholecystectomy he had more regular bowel habits, however reports some mild constipation over the past three weeks. Is taking a fiber supplement daily and only using a laxative every few days. Has a BM daily but stool is often hard. Reports infrequent hematochezia over the past three months as well, denies any melena. Had a colonoscopy in 08/2022 which was positive for one small hyperplastic polyp otherwise was unremarkable. No biopsies were done at that time. Patient feels his abdominal pain has steadily worsened over the past few months. Tested negative for celiac disease earlier this month. Lipase was WNL. No hx of hepatitis infection NSAID/Anticoagulant use: None Past Medical History: Diagnosis Date Allergy Arthrogryposis Diabetes mellitus (CMS/HCC HHS/HCC) Hyperlipidemia Hypertension Obstructive sleep apnea Personal history of (corrected) gastroschisis Past Surgical History: Procedure Laterality Date APPENDECTOMY as a baby along with gastroschisis COLONOSCOPY N/A 08/26/2021 COLONOSCOPY WITH POLYPECTOMY performed by Bob Oneal MD at [facility] OR SEPTOPLASTY SMALL INTESTINE SURGERY Family [...] Comment: socially on weekends Drug use: Never Outpatient Medications Marked as Taking for the 08/09/23 encounter (Office Visit) with Chaparro Rutledge NP Medication Sig Dispense Refill amLODIPine (NORVASC) 10 MG tablet Take 1 tablet (10 mg total) by mouth daily. 90 tablet 1 azelastine (ASTELIN) 0.1 % nasal spray USE 1 SPRAY IN EACH NOSTRIL TWICE DAILY DIRECTED 90 mL 1 Blood Glucose Monitoring Suppl (Sigmascreening VERIO REFLECT) w/Device Kit 1 Units by [...] by mouth daily. 90 tablet 1 Lancets (LeadjiniUCH DELICA PLUS [id number]) [facility] USE 1 LANCET TO PRICK FINGER TWICE [...] scalp on the rash. 22 g 3 pantoprazole EC (PROTONIX) 40 MG tablet Take 1 tablet (40 mg total) by mouth daily. 90 tablet 1 polyethylene glycol-electrolytes (NULYTELY) 420 g solution Take 4,000 mLs by mouth once for 1 dose.4000 mL 0 pravastatin (PRAVACHOL) 40 MG tablet Take 1 tablet (40 mg total) by mouth nightly at bedtime. 90 tablet 1 TRUEplus Lancets 33G [facility] Review of patient's allergies indicates: No Known Allergies REVIEW OF SYSTEMS: Review of Systems Constitutional: Negative for unexpected weight change. Respiratory: Negative for shortness of breath. Cardiovascular: Negative for leg swelling. Gastrointestinal: Per HPI Musculoskeletal: Negative for joint swelling. Skin: Negative for rash. Neurological: Negative for dizziness and headaches. Psychiatric/Behavioral: Negative for confusion. The patient is not nervous/anxious. PHYSICAL EXAM: Filed Vitals: 08/09/23 1335 BP: (!) 144/89 Pulse: 90 Temp: 98.8 ??F (37.1 ??C) TempSrc: Temporal SpO2: 98% Weight: 114.9 kg (253 lb 4.8 oz) Height: 1.803 m (5' 11 ) Wt Readings from Last 1 Encounters: 08/09/23 114.9 kg (253 lb 4.8 oz) Physical Exam Vitals reviewed. Constitutional: Appearance: Normal appearance. Cardiovascular: Rate and Rhythm: Normal rate and regular rhythm. Pulmonary: Breath sounds: Normal breath sounds. Abdominal: General: Bowel sounds are normal. There is no distension. Palpations: Abdomen is soft. There is no mass. Tenderness: There is no abdominal tenderness. There is no guarding or rebound. Hernia: No hernia is present. Musculoskeletal: Right lower leg: No edema. Left lower leg: No edema. Skin: General: Skin is warm and dry. Findings: No rash. Neurological: Mental Status: He is alert and oriented to person, place, and time. Psychiatric: Mood and Affect: Mood normal. Behavior: Behavior normal. Labs: Lab Results Component Value Date WBC 9.0 07/18/2023 RBC 5.17 07/18/2023 HGB 13.5 07/18/2023 HCT 41.8 07/18/2023 RDW 13.6 07/18/2023 PLT 372 07/18/2023 NA 138 03/24/2023 K 4.2 03/24/2023 CL 105 03/24/2023 AGAP 10.9 09/22/2022 GLU 114 (H) 03/24/2023 BUN 12 03/24/2023 CR 0.72 03/24/2023 GFRNON >90 06/15/2021 GFR >90 06/15/2021 CA 9.7 03/24/2023 MAGNESIUM 2.0 09/28/2021 ALB 4.4 03/24/2023 ALT 40 03/24/2023 AST 22 03/24/2023 ALKP 101 03/24/2023 Imagin10/07/22 CT ABD+PEL W CON Mild borderline dilatation of multiple small bowel loops in the right hemiabdomen just proximal to the small bowel anastomosis, unchanged since 09/15/2021, and likely representing partial small bowel obstruction versus ileus. No definite transition point is seen. 07/27/22 Small Bowel Series No evidence of small bowel bowel obstruction. 07/25/22 KUB 1.Interval placement of a suction-type enteric tube that courses below the diaphragm and with the distal tip superimposing the gastric body. 2.Previously seen liquid levels within some bowel loops is no longer conspicuous on this examination. 07/25/22 CT ABD+PEL W CON Mild borderline dilatation of small bowel loops in the right hemiabdomen. No discrete transition point however suggestion of mild narrowing at the anastomosis. Findings may represent partial obstruction. These findings are not significantly changed since prior CT dated 09/15/2021. The ileocecal valveis located in the left lower quadrant. 03/17/22 CT ABD+PEL W CON 1.Mild small bowel dilation, predominantly in the right abdomen, gradually tapering down in the distal ileum. There is no definitive transition point, likely representing partial bowel obstruction versus ileus. No pneumatosis. 2.There is mild mesenteric stranding in the lower abdomen around the anastomosis, which may represent postoperative changes or reactive changes. 09/15/21 CT ABD+PEL W CON 1.Findings concerning for partial small bowel obstruction--Specifically, small bowel loops are dilated up to 3.7 cm with a narrow caliber transition point at midline anteriorly. There is contrast in the colon. The cecum is located to the left of midline which could be due to malrotation and/or post surgical. 09/11/21 CT ABD+PEL W CON 1. Mildly dilated small bowel loops within the right lower quadrant. No definite transition point is seen. This is favored to represent enteritis/ileus rather than developing obstruction. Recommend close monitoring of the patient's abdominal exam and continued follow-up. 2. Abnormal configuration of the bowel with the cecum located within the left midabdomen and the majority of the small bowel clustered within the right abdomen. This is favored to be chronic in this patient with reported history of bowel surgery as an infant. 3. Prominent indeterminate mesenteric lymph nodes, likely reactive. 08/18/21 US ABD Limited 1. 2 nonmobile hyperechoic foci attached to the gallbladder wall. Most likely polyps. The largest measures 7.8 x 6.3 x 8.4 mm, and located closer toward the fundus. No shadowing gallbladder calculi. No gallbladder wall thickening or pericholecystic fluid. 2. Mild fatty infiltration of the liver without focal mass. Hepatic and portal veins are patent.. Common bile duct measures.4.4 mm. Endoscopies: 08/26/21 EGD and Colonoscopy by Dr. Oneal Negative EGD. Colonoscopy with small sigmoid polyp (hyperplastic) Otherwise negative exam to cecum with excellentbowel prep. Repeat colonoscopy in 10 yrs Assessment 1. Epigastric pain - CT ABD+PEL W CON; Future 2. Generalized abdominal pain - CT ABD+PEL W CON; Future - polyethylene glycol-electrolytes (NULYTELY) 420 g solution; Take 4,000 mLs by mouth once for 1 dose. Dispense: 4000 mL; Refill: 0 3. Rectal bleeding - CT ABD+PEL W CON; Future - polyethylene glycol-electrolytes (NULYTELY) 420 g solution; Take 4,000 mLs by mouth once for 1 dose. Dispense: 4000 mL; Refill: 0 4. Constipation, unspecified constipation type - CT ABD+PEL W CON; Future - polyethylene glycol-electrolytes (NULYTELY) 420 g solution; Take 4,000 mLs by mouth once for 1 dose. Dispense: 4000 mL; Refill: 0 5. SBO (small bowel obstruction) (CMS/HCC HHS/HCC) - CT ABD+PEL W CON; Future Recommendations/Plan: Schedule EGD and Colonoscopy per worsening abdominal and epigastric pain with rectal bleeding and change in bowel habits. Consider r/u IBD, likely of the small bowel due to frequent SBO Golytely prep prescribed CT scan of abdomen and pelvis ordered per worsening abdominal pain Continue Omeprazole 40 mg daily. Initiate OTC famotidine 20 mg BID Recommend bland diet, anti-reflux measures discussed Advised to use Miralax 1-2 times daily as needed for constipation. Uncontrolled constipation can lead to further obstructions Discussed strong possibility that patient significant surgical hx and suspected scarring/adhesions are contributing to current symptoms. Patient may need to f/u with general surgery post endoscopies pending findings All questions answered More recommendations to follow endoscopic evaluation Risks/Benefits/Options: Risks, benefits and alternatives of the procedure(s) were discussed which can include but are not limited to: discomfort, missing lesions, allergic or adverse reaction to the sedation, perforation ofthe bowel or upper GI tract which may require hospitalization and surgery, bleeding, infection, aspiration. All questions were answered, patient is in agreement to proceed as planned. Orders placed this encounter: Orders Placed This Encounter CT ABD+PEL W CON polyethylene glycol-electrolytes (NULYTELY) 420 g solution Chaparro Rutledge NP Gastroenterology documented in this encounter Plan of Treatment Upcoming Encounters Date Type Department Care Team (Late st Contact Info) Description 05/15/2024 3:30 PM NEURODIAGNOSTIC TECH Appointment [facility] [place] [address] Pankaj Rosenberg MD [address] [place] [address] 05/25/2024 12:45 PM NEURODIAGNOSTIC TECH Office Visit [facility] Physical Therapy [address] [place] [address] Pankaj Rosenberg MD [address] [place] [address] Maya Magaña, [place] [address] 05/30/2024 3:40 PM NEURODIAGNOSTIC TECH Office Visit [facility] Multispecialty [facility] [place] [address] [address] [place] [address] Pankaj Rosenberg MD [address] [place] [address] 06/20/2024 3:40 PM NEURODIAGNOSTIC TECH [facility] - [address] [place] [address] [place] [address] [place] [address] 06/21/2024 1:00 PM NEURODIAGNOSTIC TECH Office Visit [facility] Orthopedic & Sports Medicine - [place] [address] [place] [address] Jose Ratliff MD [address] [facility] [id number] [place] [address] 03/27/2025 1:00 PM NEURODIAGNOSTIC TECH [facility] [address] [facility] [address] [place] [address] Bob Oneal MD 3 [facility] [address] [place] [address] documented as of this encounter Results * CT ABD+PEL W CON (08/16/2023 12:27 PM CDT) Anatomical Region Laterality Modality Abdomen Computed Tomogra phy 08/17/2023 5:51 AM CDT Impressions 08/17/2023 5:56 AM CDT IMPRESSION: ===== 1. ??No acute abdominal or pelvic abnormalities. 2. ??Small left para midline abdominal wall hernia contains only fat. 3. ??Bowel resection postsurgical changes with no CT evidence of complication. Referred By: CHAPARRO RUTLEDGE Interpreted By: Thony Salgado MD, 08/17/2023 5:51 AM Narrative 08/17/2023 5:56 AM CDT EXAMINATION: CT Abdomen and Pelvis with contrast EXAM DATE/TIME: 08/16/2023 12:05 PM REASON FOR EXAM: ??h/o multiple SBO and surgeries Abdominal pain, acute, nonlocalized ?? Upper abdominal pain and fullness for one to 2 years. ??Prior cholecystectomy. COMPARISON: No prior CTA. TECHNIQUE: Axial CT images of the abdomen and pelvis are obtained following uneventful intravenous administration of 100 cc Isovue-370. Subsequent coronal and sagittal reformatted sequences are created for evaluation. ??A dose lowering technique was used for this procedure, which may include, but is not limited to, dose reduction technique, automated exposure control, iterative reconstruction, ALARA (As Low As Reasonably Achievable), or Image Gently techniques. FINDINGS: Lung bases clear. ??No pleural effusion. ??Heart size normal. ??No pericardial effusion. The liver and spleen are normal in size and surface contour. ??No abnormal enhancing hepatic lesions. ??Cholecystectomy. ??Pancreas and adrenal glands unremarkable. ??Kidneys demonstrate symmetric uptake of contrast. ??No hydronephrosis or obstructive uropathy on either side. ??Abdominal aorta normal in caliber throughout. ??Retroaortic left renal vein. ??Small left para midline anterior abdominal wall hernia contains only mesenteric fat. ??Mouth measures up to 10 mm in diameter. ??Center of herniation is 8 cm above the umbilicus. ??Bowel is normal in caliber throughout. ??Small bowel anastomotic sutures noted in the lower anterior abdomen from prior resection. ??Right colon is free with probable partial prior resection. ??No free fluid in the pelvis. ??Bladder contour is unremarkable. ??Bone level imaging shows no acute osseous abnormalities. ===== Procedure Note Thony Salgado MD - 08/17/2023 EXAMINATION: CT Abdomen and Pelvis with contrast EXAM DATE/TIME: 08/16/2023 12:05 PM REASON FOR EXAM: h/o multiple SBO and surgeries Abdominal pain, acute, nonlocalized Upper abdominal pain and fullness for one to 2 years. Priorcholecystectomy. COMPARISON: No prior CTA. TECHNIQUE: Axial CT images of the abdomen and pelvis are obtainedfollowing uneventful intravenous administration of 100 cc Isovue-370.Subsequent coronal and sagittal reformatted sequences are created forevaluation. A dose lowering technique was used for this procedure, whichmay include, but is not limited to, dose reduction technique, automatedexposure control, iterative reconstruction, ALARA (As Low As ReasonablyAchievable), or Image Gently techniques. FINDINGS: Lung bases clear. No pleural effusion. Heart size normal. Nopericardial effusion. The liver and spleen are normal in size and surface contour. No abnormalenhancing hepatic lesions. Cholecystectomy. Pancreas and adrenal glandsunremarkable. Kidneys demonstrate symmetric uptake of contrast. Nohydronephrosis or obstructive uropathy on either side. Abdominal aortanormal in caliber throughout. Retroaortic left renal vein. Small leftpara midline anterior abdominal wall hernia contains only mesenteric fat.Mouth measures up to 10 mm in diameter. Center of herniation is 8 cmabove the umbilicus. Bowel is normal in caliber throughout. Small bowelanastomotic sutures noted in the lower anterior abdomen from priorresection. Right colon is free with probable partial prior resection. Nofree fluid in the pelvis. Bladder contour is unremarkable. Bone levelimaging shows no acute osseous abnormalities. ===== IMPRESSION: ===== 1. No acute abdominal or pelvic abnormalities. 2. Small left para midline abdominal wall hernia contains only fat. 3. Bowel resection postsurgical changes with no CT evidence ofcomplication. Referred By: CHAPARRO RUTLEDGE Interpreted By: Thony Salgado MD, 08/17/2023 5:51 AM us Chaparro Rutledge PLASMA SPECIALIST CT Final Resul t documented in this encounter Visit Diagnoses Diagnosis Epigastric pain- Primary Abdominal pain, epigastric Generalized abdominal pain Abdominal pain, generalized Rectal bleeding Hemorrhage of rectum and anus Constipation, unspecified constipation type SBO (small bowel obstruction) ([facility]) Unspecified intestinal obstruction Epigastric pain Abdominal pain, epigastric Generalized abdominal pain Abdominal pain, generalized Rectal bleeding Hemorrhage of rectum and anus Constipation, unspecified constipation type SBO (small bowel obstruction) ([facility] HHS/[facility]) Unspecified intestinal obstruction documented in this encounter Additional Health Concerns Assessment Noted Time PHQ-9 Depression Total Score: 4 06/15/19 24 9:40 AM NEURODIAGNOSTIC TECH documented as of this encounter Care Teams Catholic Priest Relationship Specialty Start Date End Date Pankaj Rosenberg MD [address] [address] PCP - General INTERNAL MEDICINE 06/15/21 documented as of this encounter
--- OUTSIDE RECORDS SUMMARY | 2024-05-13 10:44 | XMS_ITS | Encounter Summary ---
Author Organization [facility] Address [address] [place] [address]. [place], [place] [address] [place] [address] Care Team Providers Care Operations Analyst Name Role Phone Pankaj Rosenberg MD Primary Care Provider [phone] Reason for Visit * Reason Onset Date Comments Pain 07/14/2023 Encounter Details Date Type Department Care Team (Late st Contact Info) Description 07/14/2023 Telephone [facility] Medical [facility] Multispecialty Care - [place] [address] [address] [place], [place] [id number] Pankaj Rosenberg MD [address] [place] [address] 157 [place] [address] Pain Social History Tobacco Use Types Packs/Day Years [...] on file Legal Sex Male 2:58 PM BUSINESS CONTROL MANAGER Gender Identity Male 07/13/2021 5:19 AM BUSINESS CONTROL MANAGER Sexual Orientation Straight 07/13/2021 5: 19 AM BUSINESS CONTROL MANAGER documented as of this encounter Progress Notes * Artur Cruz - 07/14/2023 9:35 AM CST Pt called today and is having a stomach flair up that's been going on for 3 weeks now, pt is in pain, pls advise and call pt. NESS CONTROL MANAGER documented in this encounter Plan of Treatment Upcoming Encounters Date Type Department Care Team (Late st Contact Info) Description 05/15/2024 3:30 PM BUSINESS CONTROL MANAGER Appointment [facility] [place] [address] Pankaj Rosenberg MD [address] [place] [address] 05/25/2024 12:45 PM BUSINESS CONTROL MANAGER Office Visit [facility] Physical Therapy [address] [place] [address] Pankaj Rosenberg MD [address] [place] [address] Maya Magaña, [place] [address] 05/30/2024 3:40 PM BUSINESS CONTROL MANAGER Office Visit [facility] Medical [facility] Multispecialty Care - [place] [address] [place] [address] Pankaj Rosenberg MD [facility] [address] [address] 06/20/2024 3:40 PM BUSINESS CONTROL MANAGER Telemedicine [facility] Multispecialty [facility] - [place] [address] [address] [place] [address] Pankaj Rosenberg MD [address] [place] [address] 06/21/2024 1:00 PM BUSINESS CONTROL MANAGER Office Visit [facility] Medical Group Orthopedic & Sports Medicine - [address] [place] [address] Jose Ratliff MD [address] [address] [place] [address] 03/27/2025 1:00 PM BUSINESS CONTROL MANAGER Office Visit [facility] Medical Group Multispecialty Care - [facility] [address] [facility] [address] [place] [address] Bob Oneal MD [address] [facility] [address] [place] [address] documented as of this encounter Visit Diagnoses Not on filedocumented in this encounter Additional Health Concerns Assessment Noted Time PHQ-9 Depression Total Score: 4 06/15/19 24 9:40 AM BUSINESS CONTROL MANAGER documented as of this encounter Care Teams Operations Analyst Relationship Specialty Start Date End Date Pankaj Rosenberg MD 1188 [facility] [address] [place] [address] PCP - General INTERNAL MEDICINE 06/15/21 documented as of this encounter
--- OUTSIDE RECORDS SUMMARY | 2024-05-13 10:44 | XMS_ITS | Encounter Summary ---
Author Organization [facility] Address [address] [place] [address]. [place] [address] [place] [address] Care Team Providers Care Health Assistant Name Role Phone Pankaj Rosenberg MD Primary Care Provider [phone] Encounter Details Date Type Department Care Team (Latest Contact Info) Description 11/21/2023 Scan [facility] INFO SRVCS Scanned, Doc Med Group Social History Tobacco Use Types Packs/Day Years [...] on file Legal Sex Male 2:58 PM MATERIALS RECYCLER Gender Identity Male 07/13/2021 5:19 AM MATERIALS RECYCLER Sexual Orientation Straight 07/13/2021 5: 19 AM MATERIALS RECYCLER documented as of this encounter Plan of Treatment Upcoming Encounters Date Type Department Care Team (Late st Contact Info) Description 05/15/2024 3:30 PM MATERIALS RECYCLER Appointment [facility] [place] [address] Pankaj Rosenberg MD [address] [facility] [address] [place] [address] 05/25/2024 12:45 PM MATERIALS RECYCLER Office Visit [facility] Physical Therapy [address] [place] [address] Pankaj Rosenberg MD [address] [address] Maya Magaña, [place] [address] 05/30/2024 3:40 PM MATERIALS RECYCLER Office Visit [facility] Multispecialty Care - [place] [address] [address] [place] [address] Pankaj Rosenberg MD [facility] [address] 06/20/2024 3:40 PM MATERIALS RECYCLER [facility] Emergency Department - [place] [address] [address] [place] [address] Panakj Rosenberg MD [facility] [address] [address] 06/21/2024 1:00 PM MATERIALS RECYCLER Office Visit [facility] Medical Group Orthopedic & Sports Medicine - [place] [address] [place] [address] Jose Ratliff MD 670 [facility] [id number] [place] [address] 03/27/2025 1:00 PM MATERIALS RECYCLER Office Visit [facility] Medical Group Multispecialty Care - [facility] 3 [facility] [address] [place] [address] Bob Oneal MD 3 [facility] [address] [place] [address] documented as of this encounter Visit Diagnoses Not on filedocumented in this encounter Additional Health Concerns Assessment Noted Time PHQ-9 Depression Total Score: 4 06/15/19 24 9:40 AM MATERIALS RECYCLER documented as of this encounter Care Teams Health Assistant Relationship Specialty Start Date End Date Pankaj Rosenberg MD [address] [address] PCP - General INTERNAL MEDICINE 06/15/21 documented as of this encounter
--- OUTSIDE RECORDS SUMMARY | 2024-05-13 10:44 | XMS_ITS | Encounter Summary ---
Author Organization [facility] Address [address] [place] [address]. [place], [place] [address] [place] [address] Care Team Providers Care Business Continuity Director Name Role Phone Pankaj Rosenberg MD Primary Care Provider [phone] Encounter Details Date Type Department Care Team (Late st Contact Info) Description 07/18/2023 Orders Only [facility] Medical Group Multispecialty Care - [place] [address] [address] [place] [address] Pankaj Rosenberg MD [address] [place] [address] 157 [place] [address] Social History Tobacco Use Types Packs/Day Years [...] on file Legal Sex Male 2:58 PM HOME STAGER Gender Identity Male 07/13/2021 5:19 AM HOME STAGER Sexual Orientation Straight 07/13/2021 5: 19 AM HOME STAGER documented as of this encounter Plan of Treatment Upcoming Encounters Date Type Department Care Team (Late st Contact Info) Description 05/15/2024 3:30 PM HOME STAGER Appointment [facility] [place] [address] Pankaj Rosenberg MD [address] [address] 05/25/2024 12:45 PM HOME STAGER Office Visit [facility] Physical Therapy [facility] [address] Pankaj Rosenberg MD [address] [address] Maya Magaña, [place] [address] 05/30/2024 3:40 PM HOME STAGER Office Visit [facility] Medical [facility] Multispecialty [facility] - [place] [address] [address] [place] [address] Pankaj Rosenberg MD [facility] [address] [address] 06/20/2024 3:40 PM HOME STAGER Telemedicine [facility] Medical [facility] Multispecialty [facility] - [place] [address] [address] [place] [address] Pankaj Rosenberg MD [address] [address] 06/21/2024 1:00 PM HOME STAGER Office Visit [facility] Medical Group Orthopedic & Sports Medicine - [place] [address] [place] [address] Jose Ratliff MD [address] [address] [place] [address] 03/27/2025 1:00 PM HOME STAGER Office Visit [facility] Medical [facility] Multispecialty Care - [facility] 3 [facility] [place] [address] Bob Oneal MD 3 [facility] [address] [place] [address] documented as of this encounter Procedures Procedure Name Priority Date/Time Associated Diagnosis Comments CELIAC DISEASE COMP PANEL Routine 07/18/2023 11:42 AM HOME STAGER CBC W/DIFF AUTOMATED Routine 07/18/2023 11:42 AM HOME STAGER LIPASE Routine 07/18/2023 11:42 AM HOME STAGER documented in this encounter Results * LIPASE (07/18/2023 11:42 AM HOME STAGER) LIPASE 24 7 - 60 U/L [facility] 07/18/2023 11:4 2 AM HOME STAGER 07/18/2023 11:42 AM HOME STAGER Narrative [facility] [place] - 07/21/2023 2:39 AM HOME STAGER FASTING:NO FASTING: NO Resulting Agency Comment Performing Organization Information: ?Site ID: [place] ?Name: [facility] ?Address: [id number] [place] [address] [place] [address] ?Director: Radha Scott MD Pankaj Rosenberg MD LABORATORY Final Result [facility] [place] [facility] [facility] [address] [place] [address], * CELIAC DISEASE COMP PANEL (07/18/2023 11:42 AM HOME STAGER) INTERPRETATION [facility] Comment: No serological evidence of celiac disease. tTG IgA may normalize in individuals with celiac disease who maintain a gluten-free diet. Consider HLA DQ2 and DQ8 testing to rule out celiac disease. Celiac disease is extremely rare in the absence of DQ2 or DQ8. TISSUE TRANSGLUTAMINASE IGA AB <1.0 U/mL [facility] Comment: Value ?Interpretation ----- ? <15.0 ?Antibody not detected > or = 15.0 ?Antibody detected IGA 298 47 - 310 mg/dL [facility] 07/18/2023 11:4 2 AM HOME STAGER 07/18/2023 11:42 AM HOME STAGER Narrative [facility] [place] [facility] - 07/21/2023 2:39 AM HOME STAGER FASTING:NO FASTING: NO Resulting Agency Comment Performing Organization Information: ?Site ID: CB ?Name: [facility] ?Address: [address] [place] [id number] ?Director: Desmond Montelongo Pankaj Rosenberg MD LABORATORY Final Result [facility] [place] [address] [place] [address] * (ABNORMAL) CBC W/DIFF AUTOMATED (07/18/2023 11:42 AM HOME STAGER) WBC 9.0 3.8 - 10.8 Thousand/ uL [facility] RBC 5.17 4.20 - 5.80 Million/u L [facility] HGB 13.5 13.2 - 17.1 g/dL [facility] HCT 41.8 38.5 - 50.0 % [facility] MCV 80.9 80.0 - 100.0 fL [facility] MCH 26.1(L) 27.0 - 33.0 pg [facility] MCHC 32.3 32.0 - 36.0 g/dL [facility] RDW 13.6 11.0 - 15.0 % [facility] PLT 372 140 - 400 Thousand/ uL [facility] MPV 10.9 7.5 - 12.5 fL [facility] ABS. NEUTROPHILS 6,507 1,500 - 7,800 cells/uL [facility] ABS. LYMPHOCYTES 1,827 850 - 3,900 cells/uL [facility] ABS. MONOCYTES 513 200 - 950 cells/uL [facility] ABS. EOSINOPHILS 90 15 - 500 cells/uL [facility] ABS. BASOPHILS 63 0 - 200 cells/uL [facility] SEG NEUTROPHILS 72.3 % [facility] LYMPHOCYTES 20.3 % [facility] MONOCYTES 5.7 % [facility] EOSINOPHILS 1.0 % [facility] BASOPHILS 0.7 % [facility] 07/18/2023 11:4 2 AM HOME STAGER 07/18/2023 11:42 AM HOME STAGER Narrative [facility] [place] - 07/21/2023 2:39 AM HOME STAGER FASTING:NO FASTING: NO Resulting Agency Comment Performing Organization Information: ?Site ID: [place] ?Name: [facility] ?Address: [address] [place], [place] [address] ?Director: Radha Scott MD us Pankaj Rosenberg MD LABORATORY Final Result [facility] [place] [facility] [id number] [place] [address] documented in this encounter Visit Diagnoses Not on filedocumented in this encounter Additional Health Concerns Assessment Noted Time PHQ-9 Depression Total Score: 4 06/15/19 24 9:40 AM HOME STAGER documented as of this encounter Care Teams Business Continuity Director Relationship Specialty Start Date End Date Pankaj Rosenberg MD [address] [address] PCP - General INTERNAL MEDICINE 06/15/21 documented as of this encounter
--- OUTSIDE RECORDS SUMMARY | 2024-05-13 10:44 | XMS_ITS | Encounter Summary ---
Author Organization [facility] Address [address] [place] [address]. [place] [address] [place] [address] Care Team Providers Care Lumber Piler Operator Name Role Phone Pankaj Rosenberg MD Primary Care Provider [phone] Reason for Visit * Reason Onset Date Comments Appointment Reminder 09/15/2023 Encounter Details Date Type Department Care Team (Late st Contact Info) Description 09/15/2023 Telephone [facility] Medical Group Multispecialty Care - [facility] 3 [facility] [address] [place] [address] Bob Oneal MD 3 [facility] [address] [place] [address] Appointment Reminder Social History Tobacco Use Types Packs/Day Years [...] on file Legal Sex Male 2:58 PM CAST SHELL GRINDER Gender Identity Male 07/13/2021 5:19 AM CAST SHELL GRINDER Sexual Orientation Straight 07/13/2021 5: 19 AM CAST SHELL GRINDER documented as of this encounter Progress Notes * Amara Mcgarry LPN - 09/15/2023 11:44 AM CDT Pt called and appt made * Dorcas Gu - 09/15/2023 11:23 AM CDT Patient had colonoscopy/Endo done 2 weeks ago, was told he needs to be seen within 2 weeks [phone] documented in this encounter Plan of Treatment Upcoming Encounters Date Type Department Care Team (Late st Contact Info) Description 05/15/2024 3:30 PM CAST SHELL GRINDER Appointment [facility] [address] Pankaj Rosenberg MD [address] [place] [phone] 05/25/2024 12:45 PM CAST SHELL GRINDER Office Visit [facility] Physical Therapy [address] [place] [phone] Pankaj Rosenberg MD [address] [place] [phone] Maya Magaña, [place] [address] 05/30/2024 3:40 PM CAST SHELL GRINDER [facility] [place] [address] [address] [place], [place] [address] Pankaj Rosenberg MD [address] [place] [address] 06/20/2024 3:40 PM CAST SHELL GRINDER Telemedicine [facility] - [place] [address] [address] [place] [address] Pankaj Rosenberg MD 1188 [facility] 157 [place] [address] 06/21/2024 1:00 PM CAST SHELL GRINDER Office Visit [facility] Medical Group Orthopedic & Sports Medicine - [place] [address] [place] [address] Jose Ratliff MD [address] [address] [place] [address] 03/27/2025 1:00 PM CAST SHELL GRINDER Office Visit [facility] Multispecialty Care - [facility] 3 [facility] [place] [address] Bob Oneal MD 3 [facility] [address] [place] [address] documented as of this encounter Visit Diagnoses Not on filedocumented in this encounter Additional Health Concerns Assessment Noted Time PHQ-9 Depression Total Score: 4 06/15/19 24 9:40 AM CAST SHELL GRINDER documented as of this encounter Care Teams Lumber Piler Operator Relationship Specialty Start Date End Date Pankaj Rosenberg MD 1188 [facility] 157 [place] [address] PCP - General INTERNAL MEDICINE 06/15/21 documented as of this encounter
--- OUTSIDE RECORDS SUMMARY | 2024-05-13 10:44 | XMS_ITS | Encounter Summary ---
Author Organization [facility] Address [address] [place] [address]. [place], [place] [address] [place] [address] Care Team Providers Care Longwall Foreman Name Role Phone Pankaj Rosenberg MD Primary Care Provider [phone] Reason for Referral * Imaging (Routine) - Closed Specialty Diagnoses / Procedures Referred By Contac t Referred To Contact RADIOLOGY Diagnoses Epigastric pain Generalized abdominal pain Rectal bleeding Constipation, unspecified constipation type SBO (small bowel obstruction) ([facility]) Procedures CT ABD+PEL W CON Chaparro Rutledge NP 3 [place] [address] Phone: tel: fax: Referral ID Status Reason Start Date Expiration Date Visits Re quested Visits Authorized [id number] Closed 08/09/2023 08/09/2024 1 1 Reason for Visit * Imaging (Routine) - Closed Specialty Diagnoses / Procedures Referred By Contac t Referred To Contact RADIOLOGY Diagnoses Epigastric pain Generalized abdominal pain Rectal bleeding Constipation, unspecified constipation type SBO (small bowel obstruction) ([facility] HHS/[facility]) Procedures CT ABD+PEL W CON Chaparro Rutledge NP 3 [facility] [address] [place] [address] Phone: tel: fax: Referral ID Status Reason Start Date Expiration Date Visits Re quested Visits Authorized [id number] Closed 08/09/2023 08/09/2024 1 1 Encounter Details Date Type Department Care Team (Latest Contact Info) Description 08/16/2023 12:00 PM CDT - 08/16/2023 11:59 PM CDT Hospital Encounter [facility] [address] [place] [address] Chaparro Rutledge NP 3 [facility] [address] [place] [address] Discharge Disposition: Home or Self Care (Routine [...] on file Legal Sex Male 2:58 PM COOLING ROOM ATTENDANT Gender Identity Male 07/13/2021 5:19 AM COOLING ROOM ATTENDANT Sexual Orientation Straight 07/13/2021 5: 19 AM COOLING ROOM ATTENDANT documented as of this encounter Medications at Time of Discharge Blood Glucose Monitoring Suppl (ONETOUCH VERIO REFLECT) w/Device Kit 1 Units by Does not apply route 2 (two) times daily. 09/16/2021 CPAP DEVICE, DME,Indications:KARRIE (obstructive sleep apnea) Use daily when sleeping or taking a nap. 1 Device 08/21/2021 Lancets (ONETOUCH DELICA PLUS [id number]) Misc USE 1 LANCET TO PRICK FINGER TWICE DAILY BEFORE TESTING 09/16/2021 mupirocin (BACTROBAN) 2 % ointmentIndications: Dermatitis Apply topically 2 (two) times daily. Use on the scalp on the rash. 22 g 3 11/24/2022 TRUEplus Lancets 33G Misc 09/16/2021 amLODIPine (NORVASC) 10 MG tabletIndications:Es sential hypertension, benign,Hypertension associated with type 2 diabetes mellitus ([facility] HHS/[facility]) Take 1 tablet (10 mg total) by mouth daily. 90 tablet 1 03/09/2023 4 azelastine (ASTELIN) 0.1 % nasal sprayIndications:All ergic rhinitis, unspecified seasonality, unspecified trigger USE 1 SPRAY IN EACH NOSTRIL TWICE DAILY DIRECTED 90 mL 1 11/24/2022 4 buPROPion SR (WELLBUTRIN SR) 150 MG 12 hr tabletIndications:Re current major depressive disorder, remission status unspecified ([facility]) Take 1 tablet (150 mg [...] hyperglycemia, without long-term current use of insulin ([facility]) Take 1 tablet (5 mg total) by mouth daily. 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 90 tablet 1 03/09/2023 4 documented as of this encounter Plan of Treatment Upcoming Encounters Date Type Department Care Team (Late st Contact Info) Description 05/15/2024 3:30 PM COOLING ROOM ATTENDANT Appointment [place] [address] Pankaj Rosenberg MD [address] [place] [address] 05/25/2024 12:45 PM COOLING ROOM ATTENDANT Office Visit [facility] Physical Therapy [address] [place] [address] Pankaj Rosenberg MD [address] [place] [address] Maya Magaña, [place] [address] 05/30/2024 3:40 PM COOLING ROOM ATTENDANT Office Visit [facility] - [place] [address] [address] [place] [address] Pankaj Rosenberg MD [address] [place] [address] 06/20/2024 3:40 PM COOLING ROOM ATTENDANT [facility] [address] [address] [place] [address] Pankaj Rosenberg MD [address] [place] [address] 06/21/2024 1:00 PM COOLING ROOM ATTENDANT Office Visit [facility] Orthopedic & Sports Medicine - [place] [address] [place] [address] Jose Ratliff MD [address] [place] [address] [place] [address] 03/27/2025 1:00 PM COOLING ROOM ATTENDANT Office Visit [facility] Multispecialty Care - [facility] [address] [facility] [address] [place] [address] Bob Oneal MD [address] [facility] [address] [place] [address] documented as of this encounter Procedures Procedure Name Priority Date/Time Associated Diagnosis Comments CT ABD+PEL W CON Routine 08/16/2023 12:2 7 PM CDT Epigastric pain Generalized abdominal pain Rectal bleeding Constipation, unspecified constipation type SBO (small bowel obstruction) ([facility]) CREATININE WHOLE BLOOD Routine 08/16/2023 12:18 PM CDT documented in this encounter Results * CT ABD+PEL W [...] MD, 08/17/2023 5:51 AM us Chaparro Rutledge CERTIFIED MASTER [employer]SM[employer] CT Final Resul t * CREATININE WHOLE BLOOD (08/16/2023 12:18 PM CDT) CREATININE WHOLE BLOOD 0.7 0.70 - 1.20 mg/dL 08/17/2023 8:05 AM CDT [facility] 08/16/2023 12:1 8 PM CDT us Chaparro Rutledge CERTIFIED [facility] Final Resul t [facility] 3 [place] [address], [place] [phone] documented in this encounter Visit Diagnoses Diagnosis Epigastric pain Abdominal pain, epigastric Generalized abdominal pain Abdominal pain, generalized Rectal bleeding Hemorrhage of rectum and anus Constipation, unspecified constipation type SBO (small bowel obstruction) (CMS/HCC HHS/HCC) Unspecified intestinal obstruction documented in this encounter Administered Medications Inactive Administered Medications - up to 3 most recent administrations Medication Order MAR Action Action Date Dose Rate Site iopamidol ([id number]-370) 76 % injection 100 mL 100 mL, Intravenous, IMG once as needed, Contrast, 1 dose, Starting on 08/16/23 at 1227, Until 08/16/23 at 1227 Given 08/16/2023 12:27 PM CDT 100 mLs documented in this encounter Additional Health Concerns Assessment Noted Time PHQ-9 Depression Total Score: 4 06/15/19 24 9:40 AM COOLING ROOM ATTENDANT documented as of this encounter Care Teams Longwall Foreman Relationship Specialty Start Date End Date Pankaj Rosenberg MD 1188 [facility] [address] [place] [address] PCP - General INTERNAL MEDICINE 06/15/21 documented as of this encounter
--- OUTSIDE RECORDS SUMMARY | 2024-05-13 10:44 | XMS_ITS | Encounter Summary ---
Author Organization [facility] Address [address] [place] [address]. [place] [address] [place] [address] Care Team Providers Care Director Of Application Development Name Role Phone Pankaj Rosenberg MD Primary Care Provider [phone] Reason for Visit * Reason Comments Lab (SCAN) Encounter Details Date Type Department Care Team (Latest Contact Info) Description 12/11/2023 Scan HEALTH INFO SRVCS Scanned, Doc Med [...] on file Legal Sex Male 2:58 PM PARK GUIDE Gender Identity Male 07/13/2021 5:19 AM PARK GUIDE Sexual Orientation Straight 07/13/2021 5: 19 AM PARK GUIDE documented as of this encounter Plan of Treatment Upcoming Encounters Date Type Department Care Team (Late st Contact Info) Description 05/15/2024 3:[address] [place] [address] Pankaj Rosenberg MD 1188 [facility] [address] [place] [address] 05/25/2024 12:45 PM PARK GUIDE Office Visit [facility] Physical Therapy [address] [address] Pankaj Rosenberg MD [address] [address] Maya Magaña, [place] [address] 05/30/2024 3:40 PM PARK GUIDE [facility] - [place] [address] [address] [place] [address] Pankaj Rosenberg MD [address] [address] 06/20/2024 3:40 PM PARK GUIDE [facility] - [place] [address] [address] [place] [address] Pankaj Rosenberg MD [address] [address] 06/21/2024 1:00 PM PARK GUIDE Office Visit [facility] Orthopedic & Sports Medicine - [place] [address] [place] [address] Jose Ratliff MD [address] [place] [address] 03/27/2025 1:00 PM PARK GUIDE Office Visit [facility] Multispecialty Care - [facility] 3 [facility] [address] [place] [address] Bob Oneal MD 3 [facility] [address] [place] [address] documented as of this encounter Procedures Procedure Name Priority Date/Time Associated Diagnosis Comments OUTSIDE LAB COVID-19 (SCAN ORDER) Routine 12/11/2023 documented in this encounter Results * OUTSIDE LAB COVID-19 (12/11/2023) CORONAVIRUS SARS COV 2 PCR (RESP) NOT DETECTED NOT DETECTED [facility] 12/11/2023 us [facility] Scanned SCANNING Final Resu lt [facility] documented in this encounter Visit Diagnoses Not on filedocumented in this encounter Additional Health Concerns Assessment Noted Time PHQ-9 Depression Total Score: 4 06/15/19 24 9:40 AM PARK GUIDE documented as of this encounter Care Teams Director Of Application Development Relationship Specialty Start Date End Date Pankaj Rosenberg MD [address] [address] PCP - General INTERNAL MEDICINE 06/15/21 documented as of this encounter
--- OUTSIDE RECORDS SUMMARY | 2024-05-13 10:44 | XMS_ITS | Encounter Summary ---
Author Organization [facility] Address [address] [place] [address]. [place], [place] [address] [place] [address] Care Team Providers Care Riveter Portable Machine Name Role Phone Pankaj Rosenberg MD Primary Care Provider [phone] Reason for Referral * Consultation (Urgent) - Authorized Specialty Diagnoses / Procedures Referred By Contac t Referred To Contact GASTROENTEROLOGY Diagnoses Abdominal pain, unspecified abdominal location Pankaj Rosenberg MD [address] [place] [address] Phone: tel: fax: [facility] Medical [facility] - [address] [address] Phone: tel: fax: Referral ID Status Reason Start Date Expiration Date Visits Requested Visits Authorized [id number] Authorized Specialty Services 07/21/2023 07/20/2024 99 99 Reason for Visit * Reason Onset Date Comments Referral Request 07/21/2023 Encounter Details Date Type Department Care Team (Late st Contact Info) Description 07/21/2023 Telephone [facility] Medical Group Multispecialty Care - [place] [address] [address] [place] [address] Pankaj Rosenberg MD [facility] [place] [address] [address] Referral Request Social History Tobacco Use Types Packs/Day [...] on file Legal Sex Male 2:58 PM RELAY CHECKER Gender Identity Male 07/13/2021 5:19 AM RELAY CHECKER Sexual Orientation Straight 07/13/2021 5: 19 AM RELAY CHECKER documented as of this encounter Progress Notes * Pankaj Rosenberg MD - 07/27/2023 12:44 PM CDTAddended by: PANKAJ ROSENBERG on: 07/27/2023 12:44 PM Modules accepted: Orders documented in this encounter Plan of Treatment Upcoming Encounters Date Type Department Care Team (Late st Contact Info) Description 05/15/2024 3:30 PM RELAY CHECKER Appointment [facility] [place] [address] Pankaj Rosenberg MD [address] [place] [address] 05/25/2024 12:45 PM RELAY CHECKER Office Visit [facility] Physical Therapy [address] [place] [address] Pankaj Rosenberg MD [facility] [place] [address] Maya Magaña, [place] [address] 05/30/2024 3:40 PM RELAY CHECKER Office Visit [facility] Medical Group Multispecialty Care - [place] [address] [address] [place] [address] Pankaj Rosenberg MD [address] [address] 06/20/2024 3:40 PM RELAY CHECKER Telemedicine [facility] Multispecialty [facility] - [place] [address] [address] [place] [address] Pankaj Rosenberg MD [facility] [place] [address] 06/21/2024 1:00 PM RELAY CHECKER Office Visit [facility] [place] 670 [place] [address] Jose Ratliff MD 670 [facility] [address] [place] [address] 03/27/2025 1:00 PM RELAY CHECKER Office Visit [facility] Mult[facility]pecialty [facility] 3 [facility], [address] [place] [address] Bob Oneal MD 3 [facility] [address] [place] [address] Scheduled Referrals Name Type Priority Associated Diagnoses Orde r Schedule Ambulatory referral to Gastroenterology (OTHER) Referral Routine Abdominal pain, unspecified abdominal location Ordered: 07/27/2023 documented as of this encounter Visit Diagnoses Diagnosis Abdominal pain, unspecified abdominal location- Primary documented in this encounter Additional Health Concerns Assessment Noted Time PHQ-9 Depression Total Score: 4 06/15/19 24 9:40 AM RELAY CHECKER documented as of this encounter Care Teams Riveter Portable Machine Relationship Specialty Start Date End Date Pankaj Rosenberg MD [address] [place] [address] PCP - General INTERNAL MEDICINE 06/15/21 documented as of this encounter
--- OUTSIDE RECORDS SUMMARY | 2024-05-13 10:44 | XMS_ITS | Encounter Summary ---
Author Organization [facility] Address [address] [place] [address]. [place] [address] [place] [address] Care Team Providers Care Floater Operator Name Role Phone Pankaj Rosenberg MD Primary Care Provider [phone] Reason for Visit * Reason Onset Date Comments Medication 10/24/2023 Encounter Details Date Type Department Care Team (Late st Contact Info) Description 10/24/[address] [facility] Medical Group Multispecialty Care - [facility] 3 [facility] [address] [place] [address] Bob Oneal MD 3 [facility] [place] [address] [place] [address] Medication Social History Tobacco Use Types Packs/Day [...] on file Legal Sex Male 2:58 PM WEB MARKETING ANALYST Gender Identity Male 07/13/2021 5:19 AM WEB MARKETING ANALYST Sexual Orientation Straight 07/13/2021 5: 19 AM WEB MARKETING ANALYST documented as of this encounter Progress Notes * Amara Mcgarry LPN - 10/24/2023 3:35 PM CDT Pt called and new script sent to pharmacy in [place]. * Patito Corado - 10/24/2023 11:26 AM CDT Patient called today saying his pharmacy has not received the order for his new medication. He doesn't know the name. Please call him to discuss. documented in this encounter Plan of Treatment Upcoming Encounters Date Type Department Care Team (Late st Contact Info) Description 05/15/2024 3:30 PM WEB MARKETING ANALYST Appointment [facility] [place] [address] Pankaj Rosenberg MD [address] [place] [address] 05/25/2024 12:45 PM WEB MARKETING ANALYST Office Visit [facility] Physical Therapy [address] [place] [address] Pankaj Rosenberg MD [address] [place] [address] Maya Magaña, [place] [address] 05/30/2024 3:40 PM WEB MARKETING ANALYST [facility] - [place] [address] [address] [place] [address] Pankaj Rosenberg MD [address] [place] [address] 06/20/2024 3:40 PM WEB MARKETING ANALYST Telemedicine [facility] - [address] [place] [address] Pankaj Rosenberg MD 1188 [facility] 157 [place] [address] 06/21/2024 1:00 PM WEB MARKETING ANALYST Office Visit [facility] Orthopedic [facility] Sports Medicine - [place] [address] [place] [address] Jose Ratliff MD [address] [address] [place] [address] 03/27/2025 1:00 PM WEB MARKETING ANALYST Office Visit [facility] Multispecialty [facility] - [facility] 3 [facility] [address] [place] [address] Bob Oneal MD 3 [facility] [place] [address] [place] [address] documented as of this encounter Visit Diagnoses Not on filedocumented in this encounter Additional Health Concerns Assessment Noted Time PHQ-9 Depression Total Score: 4 06/15/19 24 9:40 AM WEB MARKETING ANALYST documented as of this encounter Care Teams Floater Operator Relationship Specialty Start Date End Date Pankaj Rosenberg MD 1188 [facility] 157 [place] [address] PCP - General INTERNAL MEDICINE 06/15/21 documented as of this encounter
--- OUTSIDE RECORDS SUMMARY | 2024-05-13 10:44 | XMS_ITS | Encounter Summary ---
Author Organization [facility] Address [address] [place] [address]. [place], [place] [address] [place] [place] [address] Care Team Providers Care Orthophotography Technician Name Role Phone Pankaj Rosenberg MD Primary Care Provider [phone] Reason for Visit * Reason Onset Date Comments Medication 06/03/2023 Encounter Details Date Type Department Care Team (Late st Contact Info) Description 06/03/2023 Telephone [facility] Medical Group Multispecialty Care - [place] [address] [address] [place] [address] Pankaj Rosenberg MD [address] [place] [address] [place], [place] [id number] Medication Social History Tobacco Use Types Packs/Day [...] on file Legal Sex Male 2:58 PM DIRECTOR INTERNATIONAL Gender Identity Male 07/13/2021 5:19 AM DIRECTOR INTERNATIONAL Sexual Orientation Straight 07/13/2021 5: 19 AM DIRECTOR INTERNATIONAL documented as of this encounter Progress Notes * Pankaj Rosenberg MD - 06/03/2023 11:53 AM CST Patient will like omeprazole instead- sent. CTOR INTERNATIONAL * Pankaj Rosenberg MD - 06/03/2023 11:53 AM CST ----- Message from Bertha Bonilla MA sent at 06/03/2023 9:29 AM DIRECTOR INTERNATIONAL ----- Thanks for the update. If he still has any issues with this elizondo to let me know. Thank you again. ----- Message ----- From: Bertha Bonilla MA Sent: 06/02/2023 12:13 PM DIRECTOR INTERNATIONAL To: Pankaj Rosenberg MD CTOR INTERNATIONAL documented in this encounter Plan of Treatment Upcoming Encounters Date Type Department Care Team (Late st Contact Info) Description 05/15/2024 3:30 PM DIRECTOR INTERNATIONAL Appointment [facility] [place] [address] Pankaj Rosenberg MD [address] [place] [address] 05/25/2024 12:45 PM DIRECTOR INTERNATIONAL Office Visit [facility] [place] Physical Therapy [address] [place] [address] Pankaj Rosenberg MD [address] [place] [address] Maya Magaña, [place] [address] 05/30/2024 3:40 PM DIRECTOR INTERNATIONAL Office Visit [facility] Medical Group Multispecialty Care - [place] [address] [address] [place] [address] Pankaj Rosenberg MD [address] [place] [address] 06/20/2024 3:40 PM DIRECTOR INTERNATIONAL Telemedicine [facility] Multispecialty Care - [place] 1188 [facility] [address] [place] [address] Pankaj Rosenberg MD [address] [address] 06/21/2024 1:00 PM DIRECTOR INTERNATIONAL Office Visit [facility] Orthopedic & Sports Medicine - [place] [address] [place] [address] Jose Ratliff MD [address] [place] [address] [place] [address] 03/27/2025 1:00 PM DIRECTOR INTERNATIONAL [facility] 3 [facility] [address] [place] [address] Bob Oneal MD 3 [facility] [address] [place] [address] documented as of this encounter Visit Diagnoses Diagnosis Gastroesophageal reflux disease without esophagitis- Primary Esophageal reflux documented in this encounter Additional Health Concerns Assessment Noted Time PHQ-9 Depression Total Score: 2 03/09/20 23 2:22 PM CDT documented as of this encounter Care Teams Orthophotography Technician Relationship Specialty Start Date End Date Pankaj Rosenberg MD 1188 [facility] 157 [place] [address] PCP - General INTERNAL MEDICINE 06/15/21 documented as of this encounter
--- OUTSIDE RECORDS SUMMARY | 2024-05-13 10:44 | XMS_ITS | Encounter Summary ---
Author Organization [facility] Address [address] [place] [address]. [place], [place] [address] [place] [address] Care Team Providers Care Devops Developer Name Role Phone Pankaj Rosenberg MD Primary Care Provider Encounter Details Date Type Department Care Team (Latest Contact Info) Description 08/09/2023 Travel Social History Tobacco Use Types Packs/Day [...] on file Legal Sex Male 2:58 PM CONSTRUCTION PROJECT MGR Gender Identity Male 07/13/2021 5:19 AM CONSTRUCTION PROJECT MGR Sexual Orientation Straight 07/13/2021 5: 19 AM CONSTRUCTION PROJECT MGR documented as of this encounter Plan of Treatment Upcoming Encounters Date Type Department Care Team (Late st Contact Info) Description 05/15/2024 3:30 PM CONSTRUCTION PROJECT MGR Appointment [facility] [place] [address] Pankaj Rosenberg MD [address] [address] 05/25/2024 12:45 PM CONSTRUCTION PROJECT MGR Office [facility] Physical Therapy [address] [address] Pankaj Rosenberg MD [address] [address] Maya Magaña, [place] [address] 05/30/2024 3:40 PM CONSTRUCTION PROJECT MGR Office Visit [facility] Medical [facility] Multispecialty Care - [place] [address] [address] [place] [address] Pankaj Rosenberg MD [address] [address] 06/20/2024 3:40 PM CONSTRUCTION PROJECT MGR [facility] - [place] [address] [address] [place] [address] Pankaj Rosenberg MD [address] [address] 06/21/2024 1:00 PM CONSTRUCTION PROJECT MGR Office Visit [facility] Medical Group Orthopedic & Sports Medicine - [place] [address] [place] [address] Jose aRtliff MD [address] [place] [place] [address] 03/27/2025 1:00 PM CONSTRUCTION PROJECT MGR Office Visit [facility] Medical [facility] Multispecialty Care - [facility] 3 [facility] [address] [place] [address] Bob Oneal MD 3 [facility] [address] [place] [address] documented as of this encounter Visit Diagnoses Not on filedocumented in this encounter Additional Health Concerns Assessment Noted Time PHQ-9 Depression Total Score: 4 06/15/19 24 9:40 AM CONSTRUCTION PROJECT MGR documented as of this encounter Care Teams Devops Developer Relationship Specialty Start Date End Date Pankaj Rosenberg MD [address] [address] PCP - General INTERNAL MEDICINE 06/15/21 documented as of this encounter
--- OUTSIDE RECORDS SUMMARY | 2024-05-13 10:44 | XMS_ITS | Encounter Summary ---
Author Organization [facility] Address [address] [place] [address]. [place], [place] [address] [place] [address] Care Team Providers Care Certified Driver Examiner Name Role Phone Pankaj Rosenberg MD Primary Care Provider [phone] Reason for Visit * Reason Onset Date Comments Follow Up Call 10/07/2023 Encounter Details Date Type Department Care Team (Late st Contact Info) Description 10/07/2023 Telephone [facility] Medical Group Multispecialty Care - [place] [address] [address] [place], [place] [address] Pankaj Rosenberg MD [address] [place] [address] 157 [place] [address] Follow Up Call (/) Social History Tobacco Use Types Packs/Day [...] on file Legal Sex Male 2:58 PM YARN SPOOLER Gender Identity Male 07/13/2021 5:19 AM YARN SPOOLER Sexual Orientation Straight 07/13/2021 5: 19 AM YARN SPOOLER documented as of this encounter Progress Notes * Doc Ribera - 10/12/2023 11:12 AM CDT Called patient no answer. Will try again. * Pankaj Rosenberg MD - 10/07/2023 7:26 PM CDT Please schedule patient with nurse practitioner. Recent head injury with concussion from the ED. Schedule for follow-up visit. ED notes scanned into chart. Thanks. documented in this encounter Plan of Treatment Upcoming Encounters Date Type Department Care Team (Late st Contact Info) Description 05/15/2024 3:30 [address] [facility] [place] [address] Pankaj Rosenberg MD [address] [place] [address] 05/25/2024 12:45 PM YARN SPOOLER Office Visit [facility] Physical Therapy [address] [place] [address] Pankaj Rosenberg MD [address] [place] [address] Maya Magaña, [place] [address] 05/30/2024 3:40 PM YARN SPOOLER [facility] - [place] [address] [address] [place] [address] Pankaj Rosenberg MD [address] [place] [address] 06/20/2024 3:40 PM YARN SPOOLER Telemedicine [facility] - [place] [address] [address] [place] [address] Pankaj Rosenberg MD 1188 [facility] 157 [place] [address] 06/21/2024 1:00 PM YARN SPOOLER Office Visit [facility] Orthopedic & Sports Medicine - [place] [address] [place] [address] Jose Ratliff MD [address] [address] [place] [address] 03/27/2025 1:00 PM YARN SPOOLER Office Visit [facility] Multispecialty Care - [facility] 3 [facility] [address] [place] [address] Bob Oneal MD [facility] [address] [place] [address] documented as of this encounter Visit Diagnoses Not on filedocumented in this encounter Additional Health Concerns Assessment Noted Time PHQ-9 Depression Total Score: 4 06/15/19 24 9:40 AM YARN SPOOLER documented as of this encounter Care Teams Certified Driver Examiner Relationship Specialty Start Date End Date Pankaj Rosenberg MD 1188 [facility] 157 [place] [address] PCP - General INTERNAL MEDICINE 06/15/21 documented as of this encounter
--- OUTSIDE RECORDS SUMMARY | 2024-05-13 10:44 | XMS_ITS | Encounter Summary ---
Author Organization [facility] Address [address] [place] [address]. [place] [address] [place] [address] Care Team Providers Care Photo Machine Operator Name Role Phone Pankaj Rosenberg MD Primary Care Provider [phone] Encounter Details Date Type Department Care Team (Latest Contact Info) Description 10/06/2023 Scan [facility] Scanned, Doc [...] on file Legal Sex Male 2:58 PM REPAIRER AUTO CLOCKS Gender Identity Male 07/13/2021 5:19 AM REPAIRER AUTO CLOCKS Sexual Orientation Straight 07/13/2021 5: 19 AM REPAIRER AUTO CLOCKS documented as of this encounter Plan of Treatment Upcoming Encounters Date Type Department Care Team (Late st Contact Info) Description 05/15/2024 3:30 PM REPAIRER AUTO CLOCKS Appointment [facility] [place] [address] Pankaj Rosenberg MD 1188 [facility] [address] [place] [address] 05/25/2024 12:45 PM REPAIRER AUTO CLOCKS Office Visit [facility] Physical Therapy [address] [place] [address] Pankaj Rosenberg MD [address] [address] Maya Magaña, [place] [address] 05/30/2024 3:40 PM REPAIRER AUTO CLOCKS Office Visit [facility] Multispecialty Care - [place] [address] [address] [place] [address] Pankaj Rosenberg MD Critical access hospital[address] [address] 06/20/2024 3:40 PM REPAIRER AUTO CLOCKS [facility]medicine [facility] Emergency Department - [place] [address] [address] [place] [address] Pankaj Rosenberg MD Critical access hospital8 [address] [address] 06/21/2024 1:00 PM REPAIRER AUTO CLOCKS Office Visit [facility] Medical Group Orthopedic & Sports Medicine - [place] [address] [place] [address] Jose Ratliff MD [address] [facility] [address] [place] [address] 03/27/2025 1:00 PM REPAIRER AUTO CLOCKS Office Visit [facility] Medical Group Multispecialty Care - [facility] 3 [facility] [address] [place] [address] Bob Oneal MD 3 [facility] [address] [place] [address] documented as of this encounter Visit Diagnoses Not on filedocumented in this encounter Additional Health Concerns Assessment Noted Time PHQ-9 Depression Total Score: 4 06/15/19 24 9:40 AM REPAIRER AUTO CLOCKS documented as of this encounter Care Teams Photo Machine Operator Relationship Specialty Start Date End Date Pankaj Rosenberg MD [address] [address] PCP - General INTERNAL MEDICINE 06/15/21 documented as of this encounter
--- OUTSIDE RECORDS SUMMARY | 2024-05-13 10:44 | XMS_ITS | Encounter Summary ---
Author Organization [facility] Address [address] [place] [address]. [place], [place] [address] [place] [address] Care Team Providers Care Livestock Buyer Name Role Phone Pankaj Rosenberg MD Primary Care Provider [phone] Encounter Details Date Type Department Care Team (Latest Contact Info) Description 11/14/2023 Travel Social History Tobacco Use Types Packs/Day [...] on file Legal Sex Male 2:58 PM SVP RESEARCH AND STRATEGIC ANALYSIS Gender Identity Male 07/13/2021 5:19 AM SVP RESEARCH AND STRATEGIC ANALYSIS Sexual Orientation Straight 07/13/2021 5: 19 AM SVP RESEARCH AND STRATEGIC ANALYSIS documented as of this encounter Plan of Treatment Upcoming Encounters Date Type Department Care Team (Late st Contact Info) Description 05/15/2024 3:30 PM SVP RESEARCH AND STRATEGIC ANALYSIS Appointment [facility] [place] [address] Pankaj Rosenberg MD [address] [address] 05/25/2024 12:45 PM SVP RESEARCH AND STRATEGIC ANALYSIS Office Visit [facility] Physical Therapy [address] [address] Pankaj Rosenberg MD [address] [address] Maya Mgaaña, [place] [address] 05/30/2024 3:40 PM SVP RESEARCH AND STRATEGIC ANALYSIS Office [facility] Medical [facility] Multispecialty Care - [place] [address] [address] [place] [address] Pankaj Rosenberg MD [address] [address] 06/20/2024 3:40 PM SVP RESEARCH AND STRATEGIC ANALYSIS Telemedicine [facility] - [place] [address] [address] [place] [address] Pankaj Rosenberg MD [address] [address] 06/21/2024 1:00 PM SVP RESEARCH AND STRATEGIC ANALYSIS Office Visit [facility] Medical Group Orthopedic & Sports Medicine - [place] [address] [place] [address] Jose Ratliff MD [address] [place] [address] 03/27/2025 1:00 PM SVP RESEARCH AND STRATEGIC ANALYSIS Office Visit [facility] Medical [facility] Multispecialty Care - [facility] 3 [facility] [address] [place] [address] Bob Oneal MD 3 [facility] [address] [place] [address] documented as of this encounter Visit Diagnoses Not on filedocumented in this encounter Additional Health Concerns Assessment Noted Time PHQ-9 Depression Total Score: 4 06/15/19 24 9:40 AM SVP RESEARCH AND STRATEGIC ANALYSIS documented as of this encounter Care Teams Livestock Buyer Relationship Specialty Start Date End Date Pankaj Rosenberg MD [address] [address] PCP - General INTERNAL MEDICINE 06/15/21 documented as of this encounter
--- OUTSIDE RECORDS SUMMARY | 2024-05-13 10:44 | XMS_ITS | Encounter Summary ---
Author Organization [facility] Address [address] [place] [address]. [place], [place] [address] [place] [address] Care Team Providers Care Presales Consultant Name Role Phone Pankaj Rosenberg MD Primary Care Provider [phone] Reason for Visit * Reason Comments Follow Up F/u (procedures) Encounter Details Date Type Department Care Team (Latest Contact Info) Description 10/21/2023 1:00 PM CDT Office Visit [facility] [address] [address] Mario Oneal MD [address] [place] [address] Follow Up (F/u (procedures)) Social History Tobacco Use Types Packs/Day Years Used Date Smoking Tobacco: Never Smokeless Tobacco: Former Snuff, Chew Quit: 08/14/2020 Tobacco Cessation:Counseling Given: No Comments:counseled by Dr Rosenberg Alcohol Use Standard Drinks/Week Comments Yes 5 (1 standard drink = 0.6 oz pur e alcohol) socially on weekends PHQ-2 Answer Date Recorded Patient Health Questionnaire-2 Score 0 10/21/2023 Sex and Gender Information Value Date Recorded Sex Assigned at Not on file Legal Sex Male 2:58 PM DATA CONVERSION DEVELOPER Gender Identity Male 07/13/2021 5:19 AM DATA CONVERSION DEVELOPER Sexual Orientation Straight 07/13/2021 5: 19 AM DATA CONVERSION DEVELOPER documented as of this encounter Last Filed Vital Signs Vital Sign Reading Time Taken Comments Blood Pressure 126/78 10/21/2023 1:04 PM CDT Pulse 78 10/21/2023 1:04 PM CDT Temperature 36.8 ??C (98.3 ??F) 10/21/2023 1:04 PM CD T Respiratory Rate 20 10/21/2023 1:04 PM CDT Oxygen Saturation 98% 10/21/2023 1:04 PM CDT Inhaled Oxygen Concentration - - Weight 112.9 kg (249 lb) 10/21/2023 1:04 PM CDT Height 160 cm (5' 3 ) 10/21/2023 1:04 PM CDT Body Mass Index 44.11 10/21/2023 1:04 PM CDT documented in this encounter Progress Notes * Elisha Mcgarry LPN - 10/21/2023 1:00 PM CDTAddended by: ELISHA MCGARRY on: 10/24/2023 03:34 PM Modules accepted: Orders * Mario Oneal MD - 10/21/2023 1:00 PM CDT Images from the original note were not included. Gastroenterology Established Visit Reason for Visit: Follow Up (F/u (procedures)) History of Present Illness: Patient has had a couple of flareups lasting up to a week since his last colonoscopy. He describes these as burning in the abdomen. Some nausea decreased appetite but increased constipation. He has ahistory of a bowel resection. Terminal ileum biopsies were nonspecific. Medications: Current Outpatient Medications: amLODIPine (NORVASC) 10 MG tablet, Take 1 tablet (10 mg total) by mouth daily., Disp: 90 tablet, Rfl: 1 azelastine (ASTELIN) 0.1 % nasal spray, USE 1 SPRAY IN EACH NOSTRIL TWICE DAILY DIRECTED, Disp: 90 mL, Rfl: 1 Blood Glucose Monitoring Suppl (HawthorneUCH VERIO REFLECT) w/Device Kit, 1 Units by Does not apply route 2 (two) times daily., Disp: , Rfl: buPROPion SR (WELLBUTRIN SR) 150 MG 12 hr tablet, Take 1 tablet (150 mg total) by mouth 2 (two) times daily., Disp: 180 tablet, Rfl: 1 chlorhexidine (HIBICLENS) 4 % Liquid, Apply topically daily as needed., Disp: 3790 mL, Rfl: 1 clindamycin (CLEOCIN T) 1 % external solution, Apply topically 2 (two) times daily., Disp: 180 mL, Rfl: 2 CPAP DEVICE, DME,, Use daily when sleeping or taking a nap., Disp: 1 Device, Rfl: 0 ezetimibe (ZETIA) 10 MG tablet, Take 1 tablet (10 mg total) by mouth daily., Disp: 90 tablet, Rfl: 1 Lancets (ONETOUCH DELICA PLUS [id number]) [facility], USE 1 LANCET TO PRICK FINGER TWICE DAILY BEFORE TESTING, Disp: , Rfl: lisinopril (PRINIVIL) 10 MG tablet, Take 1 tablet (10 mg total) by mouth daily., Disp: 90 tablet, Rfl: 1 montelukast (SINGULAIR) 10 MG tablet, Take 1 tablet (10 mg total) by mouth nightly at bedtime., Disp: 30 tablet, Rfl: 6 mupirocin (BACTROBAN) 2 % ointment, Apply topically 2 (two) times daily. Use on the scalp on the rash., Disp: 22 g, Rfl: 3 pantoprazole EC (PROTONIX) 40 MG tablet, Take 1 tablet (40 mg total) by mouth daily., Disp: 90 tablet, Rfl: 1 pravastatin (PRAVACHOL) 40 MG tablet, Take 1 tablet (40 mg total) by mouth nightly at bedtime., Disp: 90 tablet, Rfl: 1 TRADJENTA 5 MG tablet, TAKE 1 TABLET(5 MG) BY MOUTH DAILY, Disp: 90 tablet, Rfl: 0 TRUEplus Lancets 33G [facility], , Disp: , Rfl: Allergies: Not on File Medical History: Past Medical History: Diagnosis Date Allergy Arthrogryposis Diabetes mellitus (CMS/HCC HHS/HCC) Hyperlipidemia Hypertension Obstructive sleep apnea Personal history of (corrected) gastroschisis Surgical History: Past Surgical History: Procedure Laterality Date APPENDECTOMY as a baby along with gastroschisis COLONOSCOPY N/A 08/26/2021 COLONOSCOPY WITH POLYPECTOMY performed by Mario Oneal MD at [facility] OR COLONOSCOPY N/A 09/02/2023 Colonoscopy with Biopsy performed by Mario Oneal MD at [facility] OR SEPTOPLASTY SMALL INTESTINE SURGERY PE: Filed Vitals: 10/21/23 1304 BP: 126/78 Pulse: 78 Resp: 20 Temp: 98.3 ??F (36.8 ??C) TempSrc: Temporal SpO2: 98% Weight: 112.9 kg (249 lb) Height: 1.6 m (5' 3 ) General: In NAD, pleasant and appropriate HEENT: Anicteric Skin: Anicteric, no rashes Neuro: A&Ox3 Diagnoses/Impression: Terminal ileum biopsies are nonspecific and do not necessarily signify inflammatory bowel disease. However given his flareup in symptoms will empirically treat with Pentasa low-dose. Consider IBS treatment as well. Recommendations and Plan: Empiric start Pentasa 2 tablets daily for 3 months. See me back in 3 months to see if he should continue this therapy or switch to IBS meds MARIO ONEAL MD 10/21/2023 Voice recognition software utilized documented in this encounter Plan of Treatment Upcoming Encounters Date Type Department Care Team (Late st Contact Info) Description 05/15/2024 3:30 PM DATA CONVERSION DEVELOPER Appointment [facility] [place] [address] Pankaj Rosenberg MD [address] [place] [address] 05/25/2024 12:45 PM DATA CONVERSION DEVELOPER Office Visit [facility] Physical Therapy [address] [place] [address] Pankaj Rosenberg MD [address] [place] [address] Maya Magaña, [place] [address] 05/30/2024 3:40 PM DATA CONVERSION DEVELOPER Office Visit [facility] Medical Group Multispecialty Care - [place] [address] [address] [place] [address] [place] [address] [place] [address] 06/20/2024 3:40 PM DATA CONVERSION DEVELOPER [facility] [place] [address] [address] [place] [address] Pankaj Rosenberg MD [address] [address] 06/21/2024 1:00 PM DATA CONVERSION DEVELOPER Office Visit [facility] Orthopedic & Sports Medicine - [place] [address] [place] [address] Jose Ratliff MD 670 [facility] [address] [place] [address] 03/27/2025 1:00 PM DATA CONVERSION DEVELOPER Office Visit [facility] Multispecialty [facility] 3 [facility] [address] [place] [address] Mario Oneal MD 3 [facility] [address] [place] [address] documented as of this encounter Visit Diagnoses Diagnosis Ileitis- Primary Other and unspecified noninfectious gastroenteritis and colitis documented in this encounter Additional Health Concerns Assessment Noted Time PHQ-9 Depression Total Score: 4 06/15/19 24 9:40 AM DATA CONVERSION DEVELOPER documented as of this encounter Care Teams Presales Consultant Relationship Specialty Start Date End Date Pankaj Rosenberg MD [address] [place] [address] PCP - General INTERNAL MEDICINE 06/15/21 documented as of this encounter
--- OUTSIDE RECORDS SUMMARY | 2024-05-13 10:45 | XMS_ITS | Encounter Summary ---
Author Organization [facility] Address [address] [place] [address]. [place], [place] [address] [place] [address] Care Team Providers Care Business Applications Specialist Name Role Phone Pankaj Rosenberg MD Primary Care Provider [phone] Reason for Visit * Reason Onset Date Comments Information 06/02/2023 Encounter Details Date Type Department Care Team (Late st Contact Info) Description 06/02/2023 Telephone [facility] Medical Group Multispecialty Care - [place] [address] [address] [place] [address] Pankaj Rosenberg MD [address] [place] [address] [address] [place] [address] Information Social History Tobacco Use [...] on file Legal Sex Male 2:58 PM ELEMENTARY SCIENCE TEACHER Gender Identity Male 07/13/2021 5:19 AM ELEMENTARY SCIENCE TEACHER Sexual Orientation Straight 07/13/2021 5: 19 AM ELEMENTARY SCIENCE TEACHER documented as of this encounter Progress Notes * Bertha Bonilla MA - 06/03/2023 9:27 AM CST Patient would like for you to send in the omeprazole instead of the pantoprazole since his insurance will cover it thank you ENTARY SCIENCE TEACHER * Bertha Bonilla MA - 06/02/2023 12:11 PM CST Spoke with the pharmcy his primary insurance is covering both medications but his secondary wont cover because its over the limit the pay for so his co pays are 21.42 and 15.00 dollars I left a message for the patient to call meso I could explain this to him ENTARY SCIENCE TEACHER documented in this encounter Plan of Treatment Upcoming Encounters Date Type Department Care Team (Late st Contact Info) Description 05/15/2024 3:30 PM ELEMENTARY SCIENCE TEACHER Appointment [facility] [place] [address] Pankaj Rosenberg MD [address] [place] [address] 05/25/2024 12:45 PM ELEMENTARY SCIENCE TEACHER Office Visit [facility] Physical Therapy [address] [place] [address] Pankaj Rosenberg MD [address] [place] [address] Maya Magaña, [place] [address] 05/30/2024 3:40 PM ELEMENTARY SCIENCE TEACHER Office Visit [facility] Multispecialty Care - [place] [address] [address] [place] [address] Pankaj Rosenberg MD [address] [place] [address] 06/20/2024 3:40 PM ELEMENTARY SCIENCE TEACHER Telemedicine [facility] Multispecialty Care - [place] [address] [address] [place] [address] [place] [address] [place] [address] 157 [place] [address] 06/21/2024 1:00 PM ELEMENTARY SCIENCE TEACHER Office Visit [facility] Orthopedic & Sports Medicine - [place] [address] [place] [address] Jose Ratliff MD [address] [place] [address] [place] [address] 03/27/2025 1:00 PM ELEMENTARY SCIENCE TEACHER Office Visit [facility] Multispecialty [facility] 3 [facility] [address] [place] [address] Bob Oneal MD 3 [facility] [address] [place] [address] documented as of this encounter Visit Diagnoses Not on filedocumented in this encounter Additional Health Concerns Assessment Noted Time PHQ-9 Depression Total Score: 2 03/09/20 23 2:22 PM CDT documented as of this encounter Care Teams Business Applications Specialist Relationship Specialty Start Date End Date Pankaj Rosenberg MD [address] [place] [address] PCP - General INTERNAL MEDICINE 06/15/21 documented as of this encounter
--- OUTSIDE RECORDS SUMMARY | 2024-05-13 10:45 | XMS_ITS | Encounter Summary ---
Author Organization [facility] Address [address] [place] [address]. [place] [address] [place] [address] Care Team Providers Care Oil Agent Name Role Phone Pankaj Rosenberg MD Primary Care Provider [phone] Reason for Visit * Reason Comments Lab (SCAN) Ultrasound (SCAN) Encounter Details Date Type Department Care Team (Late Contact Info) Description 05/06/2023 Scan [facility] Scanned, Doc Med Group Lab (SCAN); Ultrasound (SCAN) Social History Tobacco Use Types Packs/Day [...] on file Legal Sex Male 2:58 PM COVERED BUTTON MAKER Gender Identity Male 07/13/2021 5:19 AM COVERED BUTTON MAKER Sexual Orientation Straight 07/13/2021 5: 19 AM COVERED BUTTON MAKER documented as of this encounter Plan of Treatment Upcoming Encounters Date Type Department Care Team (Late Contact Info) Description 05/15/2024 3:30 PM COVERED BUTTON MAKER [facility]ment [facility] [place] [address] Pankaj Rosenberg MD 1188 [facility] [address] [place] [address] 05/25/2024 12:45 PM COVERED BUTTON MAKER Office Visit [facility] Physical Therapy [address] [facility] [address] [place] [address] Pankaj Rosenberg MD 1188 [facility] 157 [place] [address] Maya Magaña, PT [place] [address] 05/30/2024 3:40 PM COVERED BUTTON MAKER [facility] - [address] [place] [address] Pankaj Rosenberg MD [address] [address] 06/20/2024 3:40 PM COVERED BUTTON MAKER Telemedicine [facility] - [place] [address] [address] [place] [address] Pankaj Rosenberg MD [address] [address] 06/21/2024 1:00 PM COVERED BUTTON MAKER Office Visit [facility] Orthopedic & Sports Medicine - [place] [address] [place] [address] Jose Ratliff MD [address] [address] [place] [address] 03/27/2025 1:00 PM COVERED BUTTON MAKER [facility] 3 [facility] [place] [address] Bob Oneal MD 3 [facility] [address] [place] [address] documented as of this encounter Procedures Procedure Name Priority Date/Time Associated Diagnosis Comments OUTSIDE LAB (SCAN ORDER) 05/06/2023 ULTRASOUND GENERIC (SCAN ORDER) 05/06/2023 documented in this encounter Results * OUTSIDE LAB (SCAN) (05/06/2023) 05/06/2023 [facility] Scanned SCANNING Final Resu lt * ULTRASOUND GENERIC (05/06/2023) Anatomical Region Laterality Modality Other 05/06/2023 [facility] Scanned SCANNING Final Resu lt documented in this encounter Visit Diagnoses Not on filedocumented in this encounter Additional Health Concerns Assessment Noted Time PHQ-9 Depression Total Score: 2 03/09/20 23 2:22 PM CDT documented as of this encounter Care Teams Oil Agent Relationship Specialty Start Date End Date Pankaj Rosenberg MD [address] [address] PCP - General INTERNAL MEDICINE 06/15/21 documented as of this encounter
--- OUTSIDE RECORDS SUMMARY | 2024-05-13 10:45 | XMS_ITS | Encounter Summary ---
Author Organization [facility] Address [address] [place] [address]. [place], [place] [address] [place] [address] Care Team Providers Care Screen Making Technician Name Role Phone Pankaj Rosenberg MD Primary Care Provider [phone] Reason for Visit * Reason Onset Date Comments Medication 06/02/2023 Encounter Details Date Type Department Care Team (Late st Contact Info) Description 06/02/2023 Telephone [facility] Medical Group Multispecialty Care - [place] [address] [address] [place] [address] Pankaj Rosenberg MD [address] [place] [address] [place], [place] [phone] Medication Social History Tobacco Use Types Packs/Day [...] on file Legal Sex Male 2:58 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 Please find out if aPA is needed on any of these medications and let me know please. Thank you. [employer] * Artur Cruz - 06/02/2023 9:46 AM CST Pt called today and stated that his insurance will not cover Ezetimibe 10 mg and Omeprazole 40 mg. His Omeprazole [facility] will not cover at all and Medicaid partial. Patient would like you to help get itcovered, pt only has one pill left Primary Ins- UHC Secondary- Medicaid [employer] documented in this encounter Plan of Treatment Upcoming Encounters Date Type Department Care Team (Late st Contact Info) Description 05/15/2024 3:30 PM [employer]RE [employer] Appointment [facility] [place] [address] Pankaj Rosenberg MD [address] [place] [phone] 05/25/2024 12:45 PM [employer] Office Visit [facility] Physical Therapy [address] [place] [phone] Pankaj Rosenberg MD [address] [address] Maya Magaña, [place] [address] 05/30/2024 3:40 PM [employer] Office Visit [facility] Multispecialty Care - [place] [address] [address] [place] [address] Pankaj Rosenberg MD [address] [address] 06/20/2024 3:40 PM [employer] Telemedicine [facility] Multispecialty [facility] - [place] [address] [address] [place] [address] Pankaj Rosenberg MD [address] [address] 06/21/2024 1:00 PM [employer] Office Visit [facility] Orthopedic & Sports Medicine - [place] [address] [place] [address] Jose Ratliff MD 670 [facility] [address] [place] [address] 03/27/2025 1:00 PM [employer] Office Visit [facility] Multispecialty Care - [facility] 3 [facility], [address] [place] [address] Bob Oneal MD 3 [facility] [address] [place] [address] documented as of this encounter Visit Diagnoses Diagnosis Gastroesophageal reflux disease without esophagitis- Primary Esophageal reflux Mixed hyperlipidemia documented in this encounter Additional Health Concerns Assessment Noted Time PHQ-9 Depression Total Score: 2 03/09/20 23 2:22 PM CDT documented as of this encounter Care Teams Screen Making Technician Relationship Specialty Start Date End Date Pankaj Rosenberg MD [address] [place] [phone] PCP - General INTERNAL MEDICINE 06/15/21 documented as of this encounter
--- OUTSIDE RECORDS SUMMARY | 2024-05-13 10:46 | XMS_ITS | Encounter Summary ---
Author Organization [facility] Address [address] [place] [address]. [place], [place] [address] [place] [address] Care Team Providers Care Basket Maker Name Role Phone Pankaj Rosenberg MD Primary Care Provider [phone] Reason for Visit * Reason Onset Date Comments Follow Up Call 03/09/2023 Encounter Details Date Type Department Care Team (Late st Contact Info) Description 03/09/2023 Telephone 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 * Pankaj Rosenberg MD - 03/09/2023 2:35 PM CDT Please reach out to [facility] on behalf of this patient. They want a form filled out for him to report compliance with CPAP. Have them fax it over and will get this form filled out for him thank you. documented in this encounter Plan of Treatment Upcoming Encounters Date Type Department Care Team (Late st Contact Info) Description 05/15/2024 3:30 PM POLISHER APPRENTICE Appointment [facility] [place] [address] Pankaj Rosenberg MD [address] [place] [address] 05/25/2024 12:45 PM POLISHER APPRENTICE Office Visit [facility] Physical Therapy [address] [place] [phone] Pankaj Rosenberg MD [facility] [address] [address] Maya Magaña, [place] [address] 05/30/2024 3:40 PM POLISHER APPRENTICE Office Visit [place] [address] [address] [place], [place] [address] Pankaj Rosenberg MD [address] [address] 06/20/2024 3:40 PM POLISHER APPRENTICE Telemedicine [facility] [address] [place] [address] Pankaj Rosenberg MD 1188 [facility] 157 [place] [address] 06/21/2024 1:00 PM POLISHER APPRENTICE [facility] Visit [facility] Orthopedic & Sports Medicine - [place] [address] [place] [address] Jose Ratliff MD [address] [place] [address] [place] [address] 03/27/2025 1:00 PM POLISHER APPRENTICE Office Visit [facility] Multispecialty Care - [facility] 3 [facility] [address] [place] [address] Bob Oneal MD 3 [facility] [address] [place] [address] documented as of this encounter Visit Diagnoses Not on filedocumented in this encounter Additional Health Concerns Assessment Noted Time PHQ-9 Depression Total Score: 2 03/09/20 23 2:22 PM CDT documented as of this encounter Care Teams Basket Maker Relationship Specialty Start Date End Date Pankaj Rosenberg MD [address] [place] [address] 157 [place] [address] PCP - General INTERNAL MEDICINE 06/15/21 documented as of this encounter
--- OUTSIDE RECORDS SUMMARY | 2024-05-13 10:46 | XMS_ITS | Encounter Summary ---
Author Organization [facility] Address [address] [place] [address]. [place], [place] [address] [place] [address] Care Team Providers Care Utility Pipe Layer Name Role Phone Pankaj Rosenberg MD Primary Care Provider [phone] Encounter Details Date Type Department Care Team (Late st Contact Info) Description 03/24/2023 Orders Only [facility] Medical Group Multispecialty Care - [place] [address] [address] [place] [address] Pankaj Rosenberg MD [address] [place] [address] 157 [place] [address] Social History Tobacco Use Types Packs/Day Years [...] on file Legal Sex Male 2:58 PM PLANNING TECHNICIAN Gender Identity Male 07/13/2021 5:19 AM PLANNING TECHNICIAN Sexual Orientation Straight 07/13/2021 5: 19 AM PLANNING TECHNICIAN documented as of this encounter Plan of Treatment Upcoming Encounters Date Type Department Care Team (Late st Contact Info) Description 05/15/2024 3:30 PM PLANNING TECHNICIAN Appointment [facility] [place] [address] Pankaj Rosenberg MD [address] [address] 05/25/2024 12:45 PM PLANNING TECHNICIAN Office Visit [facility] Physical Therapy [facility] [address] Pankaj Rosenberg MD [address] [address] Maya Magaña, [place] [address] 05/30/2024 3:40 PM PLANNING TECHNICIAN Office Visit [facility] Medical [facility] Multispecialty [facility] - [place] [address] [address] [place] [address] Pankaj Rosenberg MD [facility] [address] [address] 06/20/2024 3:40 PM PLANNING TECHNICIAN Telemedicine [facility] Medical [facility] Multispecialty [facility] - [place] [address] [address] [place] [address] Pankaj Rosenberg MD [address] [address] 06/21/2024 1:00 PM PLANNING TECHNICIAN Office Visit [facility] Medical Group [facility] - [place] [address] [place] [address] Jose Ratliff MD [address] [address] [place] [address] 03/27/2025 1:00 PM PLANNING TECHNICIAN Office Visit [facility] Medical [facility] Mult[facility]pecialty Care - [facility] 3 [facility] [address] [place] [address] Bob Oneal MD 3 [facility] [address] [place] [address] documented as of this encounter Procedures Procedure Name Priority Date/Time Associated Diagnosis Comments HEMOGLOBIN, GLYCOSYLATED Routine 03/24/2023 9:14 AM PLANNING TECHNICIAN COMPREHENSIVE METABOLIC PANEL Routine 03/24/2023 9:14 AM PLANNING TECHNICIAN LIPID PANEL Routine 03/24/2023 9:14 AM PLANNING TECHNICIAN CBC W/DIFF AUTOMATED Routine 03/24/2023 9:14 AM PLANNING TECHNICIAN documented in this encounter Results * (ABNORMAL) HEMOGLOBIN, GLYCOSYLATED (03/24/2023 9:14 AM PLANNING TECHNICIAN) HGB A1C 6.4(H) <5.7 % of total Hgb [facility] [place] Comment: For someone without known diabetes, a hemoglobin A1c value between 5.7% and 6.4% is consistent with prediabetes and should be confirmed with a follow-up test. For someone with known diabetes, a value <7% indicates that their diabetes is well controlled. A1c targets should be individualized based on duration of diabetes, age, comorbid conditions, and other considerations. This assay result is consistent with an increased risk of diabetes. Currently, no consensus exists regarding use of hemoglobin A1c for diagnosis of diabetes for children. 03/24/2023 9:14 AM PLANNING TECHNICIAN 03/24/2023 9:16 AM PLANNING TECHNICIAN Narrative [facility] - 03/25/2023 7:20 AM PLANNING TECHNICIAN FASTING:YES FASTING: YES Resulting Agency Comment Performing Organization Information: ?Site ID: SL ?Name: [facility] ?Address: [facility] [place] [address] ?Director: Radha Scott Pankaj Rosenberg MD LABORATORY Final Result [facility], [place] [address] [place] [address] * (ABNORMAL) CBC W/DIFF AUTOMATED (03/24/2023 9:14 AM PLANNING TECHNICIAN) WBC 7.3 3.8 - 10.8 Thousand/ uL [facility] RBC 4.86 4.20 - 5.80 Million/u L [facility] HGB 12.8(L) 13.2 - 17.1 g/dL [facility] HCT 39.2 38.5 - 50.0 % [facility] MCV 80.7 80.0 - 100.0 fL [facility] MCH 26.3(L) 27.0 - 33.0 pg [facility] MCHC 32.7 32.0 - 36.0 g/dL [facility] RDW 13.1 11.0 - 15.0 % [facility] PLT 359 140 - 400 Thousand/ uL [facility] MPV 10.7 7.5 - 12.5 fL [facility] ABS. NEUTROPHILS 4,876 1,500 - 7,800 cells/uL [facility] ABS. LYMPHOCYTES 1,818 850 - 3,900 cells/uL [facility] ABS. MONOCYTES 453 200 - 950 cells/uL [facility] ABS. EOSINOPHILS 117 15 - 500 cells/uL [facility] ABS. BASOPHILS 37 0 - 200 cells/uL [facility] SEG NEUTROPHILS 66.8 % [facility] LYMPHOCYTES 24.9 % [facility] MONOCYTES 6.2 % [facility] EOSINOPHILS 1.6 % [facility] BASOPHILS 0.5 % [facility] 03/24/2023 9:14 AM PLANNING TECHNICIAN 03/24/2023 9:16 AM PLANNING TECHNICIAN Narrative [facility] - 03/25/2023 7:20 AM PLANNING TECHNICIAN FASTING:YES FASTING: YES Resulting Agency Comment Performing Organization Information: ?Site ID: MT ?Name: [employer] [facility] ?Address: [address] [place] [address] ?Director: Radha Scott MD Pankaj Rosenberg MD LABORATORY Final Result [facility] [address] [address], [place] * (ABNORMAL) COMPREHENSIVE METABOLIC PANEL (03/24/2023 9:14 AM PLANNING TECHNICIAN) GLUCOSE 114(H) 65 - 99 mg/dL [facility] Comment: ? Fasting reference interval For someone without known diabetes, a glucose value between 100 and 125 mg/dL is consistent with prediabetes and should be confirmed with a follow-up test. BUN 12 7 - 25 mg/dL [facility] CREATININE S/P/B 0.72 0.60 - 1.24 mg/dL [facility] GFR ESTIMATE 128 > OR = 60 mL/min/1. 73m2 [facility] BUN CREATININE RATIO SEE NOTE: (calc) [facility] Comment: ?? Not Reported: BUN and Creatinine are within ?? reference range. ? SODIUM S/P/B 138 135 - 146 mmol/L [facility] POTASSIUM S/P/B 4.2 3.5 - 5.3 mmol/L [facility] CHLORIDE S/P/B 105 98 - 110 mmol/L [facility] CO2 23 20 - 32 mmol/L [facility] CALCIUM S/P/B 9.7 8.6 - 10.3 mg/dL [facility] TOTAL PROTEIN S/P/B 7.4 6.1 - 8.1 g/dL [facility] ALBUMIN S/P/B 4.4 3.6 - 5.1 g/dL [facility] GLOBULIN 3.0 1.9 - 3.7 g/dL (calc) [facility] ALBUMIN/GLOBULI N RATIO 1.5 1.0 - 2.5 (calc) [facility] BILIRUBIN TOTAL S/P/B 0.9 0.2 - 1.2 mg/dL [facility] ALKALINE PHOSPHATASE S/P/B 101 36 - 130 U/L [facility] AST 22 10 - 40 U/L [facility] ALT 40 9 - 46 U/L [facility] 03/24/2023 9:14 AM PLANNING TECHNICIAN 03/24/2023 9:16 AM PLANNING TECHNICIAN Narrative [facility] - 03/25/2023 7:20 AM PLANNING TECHNICIAN FASTING:YES FASTING: YES Resulting Agency Comment Performing Organization Information: ?Site ID: [id number] ?Name: Krystian Ivey ?Address: [address] [address] ?Director: Radha Scott MD us Pankaj Rosenberg MD LABORATORY Final Result [facility] [address] [place] [address], * (ABNORMAL) LIPID PANEL (03/24/2023 9:14 AM PLANNING TECHNICIAN) CHOLESTEROL 140 <200 mg/dL [facility] HDL 34(L) > OR = 40 mg/dL [facility] TRIGLYCERIDES 109 <150 mg/dL [facility] LDL (CALCULATED) 85 mg/dL (calc) [facility] Comment: Reference range: <100 Desirable range <100 mg/dL for primary prevention; ?? <70 mg/dL for patients with CHD or diabetic patients with > or = 2 CHD risk factors. LDL-C is now calculated using the Evens-Leeanna calculation, which is a validated novel method providing better accuracy than the Friedewald equation in the estimation of LDL-C. Evens SS et al. MAYE. 2013;310(19): 9700-6539 (http://education.[employer].Applause/faq/VEG168) CHOL/HDL RATIO 4.1 <5.0 (calc) [facility] NON HDL CHOLESTEROL 106 <130 mg/dL (calc) [facility] Comment: For patients with diabetes plus 1 major ASCVD risk factor, treating to a non-HDL-C goal of <100 mg/dL (LDL-C of <70 mg/dL) is considered a therapeutic option. 03/24/2023 9:14 AM PLANNING TECHNICIAN 03/24/2023 9:16 AM PLANNING TECHNICIAN Narrative [facility] - 03/25/2023 7:20 AM PLANNING TECHNICIAN FASTING:YES FASTING: YES Resulting Agency Comment Performing Organization Information: ?Site ID: MT ?Name: Krystian Ivey ?Address: [address] [address] ?Director: Radha Scott MD us Pankaj Rosenberg MD LABORATORY Final Result [facility] [address] [place], [place] [address] documented in this encounter Visit Diagnoses Not on filedocumented in this encounter Additional Health Concerns Assessment Noted Time PHQ-9 Depression Total Score: 2 03/09/20 23 2:22 PM CDT documented as of this encounter Care Teams Utility Pipe Layer Relationship Specialty Start Date End Date Pankaj Rosenberg MD 1188 [facility] [address] [place] [address] PCP - General INTERNAL MEDICINE 06/15/21 documented as of this encounter
--- OUTSIDE RECORDS SUMMARY | 2024-05-13 10:46 | XMS_ITS | Encounter Summary ---
Author Organization [facility] Address [address] [place] [address]. [place] [address] [place] [address] Care Team Providers Care Crawler Tractor Operator Name Role Phone Pankaj Rosenberg MD Primary Care Provider [phone] Encounter Details Date Type Department Care Team (Latest Contact Info) Description 03/09/2023 Scan HEALTH INFO SRVCS Scanned, Doc Med [...] file Legal Sex Male 2:58 PM FIRE EXTINGUISHER MECHANIC Gender Identity Male 07/13/2021 5:19 AM FIRE EXTINGUISHER MECHANIC Sexual Orientation Straight 07/13/2021 5: 19 AM FIRE EXTINGUISHER MECHANIC documented as of this encounter Plan of Treatment Upcoming Encounters Date Type Department Care Team (Late st Contact Info) Description 05/15/2024 3:30 PM FIRE EXTINGUISHER MECHANIC Appointment [facility] [place] [address] Pankaj Rosenberg MD [address] [facility] [address] [place] [address] 05/25/2024 12:45 PM FIRE EXTINGUISHER MECHANIC Office Visit [facility] Physical Therapy [address] [place] [address] Pankaj Rosenberg MD [address] [address] Maya Magaña, [place] [address] 05/30/2024 3:40 PM FIRE EXTINGUISHER MECHANIC Office Visit [facility] Multispecialty Care - [place] [address] [address] [place] [address] Pankaj Rosenberg MD [facility] [address] [address] 06/20/2024 3:40 PM FIRE EXTINGUISHER MECHANIC [facility] - [place] [address] [address] [place] [address] Pankaj Rosenberg MD [facility] [address] [address] 06/21/2024 1:00 PM FIRE EXTINGUISHER MECHANIC Office Visit [facility] Medical Group Orthopedic & Sports Medicine - [place] [address] [address] Jose Ratliff MD [address] [facility] [id number] [place] [address] 03/27/2025 1:00 PM FIRE EXTINGUISHER MECHANIC Office Visit [facility] Medical Group Multispecialty Care - [facility] [address] [facility] [place] [address] Bob Oneal MD 3 [facility] [address] [place] [address] documented as of this encounter Visit Diagnoses Not on filedocumented in this encounter Additional Health Concerns Assessment Noted Time PHQ-9 Depression Total Score: 2 03/09/20 23 2:22 PM CDT documented as of this encounter Care Teams Crawler Tractor Operator Relationship Specialty Start Date End Date Pankaj Rosenberg MD [address] [address] PCP - General INTERNAL MEDICINE 06/15/21 documented as of this encounter
--- OUTSIDE RECORDS SUMMARY | 2024-05-13 10:46 | XMS_ITS | Encounter Summary ---
Author Organization [facility] Address [address] [place] [address]. [place], [place] [address] [place] [address] Care Team Providers Care On Site Nurse Name Role Phone Pankaj Rosenberg MD Primary Care Provider [phone] Encounter Details Date Type Department Care Team (Latest Contact Info) Description 03/11/2023 Datamolinot Message Enc [facility] Medical Group Multispecialty Care - [place] [address] [address] [place], [place] [address] Pankaj Rosenberg MD [address] [place] [address] [address] [place], [place] [address] Specialist referral Social History Tobacco Use Types Packs/Day Years [...] on file Legal Sex Male 2:58 PM CELL MAKER Gender Identity Male 07/13/2021 5:19 AM CELL MAKER Sexual Orientation Straight 07/13/2021 5: 19 AM CELL MAKER documented as of this encounter Plan of Treatment Upcoming Encounters Date Type Department Care Team (Late st Contact Info) Description 05/15/2024 3:[address] [facility] [facility] [place] [address] Pankaj Rosenberg MD [address] [address] 05/25/2024 12:45 PM CELL MAKER Office Visit [facility] Physical Therapy [address] [place] [address] Pankaj Rosenberg MD [address] [address] Maya Magaña, [place] [address] 05/30/2024 3:40 PM CELL MAKER Office Visit [facility] Medical [facility] Multispecialty Care - [place] [address] [address] [place] [address] Pankaj Rosenberg MD [facility] [address] [address] 06/20/2024 3:40 PM CELL MAKER Telemedicine [facility] Medical [facility] Multispecialty Care - [place] [address] [address] [place] [address] Pankaj Rosenberg MD [address] [address] 06/21/2024 1:00 PM CELL MAKER Office Visit [facility] Medical Group Orthopedic & Sports Medicine - [place] [address] [place] [address] Jose Ratliff MD [address] [address] [place] [address] 03/27/2025 1:00 PM CELL MAKER Office Visit [facility] Medical Group Multispecialty Care - [facility] [address] [facility], [address] [place] [address] Bob Oneal MD 3 [facility] [address] [place] [address] documented as of this encounter Visit Diagnoses Not on filedocumented in this encounter Additional Health Concerns Assessment Noted Time PHQ-9 Depression Total Score: 2 03/09/20 23 2:22 PM CDT documented as of this encounter Care Teams On Site Nurse Relationship Specialty Start Date End Date Pankaj Rosenberg MD 1188 [facility] [address] [place] [address] PCP - General INTERNAL MEDICINE 06/15/21 documented as of this encounter
--- OUTSIDE RECORDS SUMMARY | 2024-05-13 10:46 | XMS_ITS | Encounter Summary ---
Author Organization [facility] Address [address] [place] [address]. [place] [address] [place] [address] Care Team Providers Care Event Sales Manager Name Role Phone Pankaj Rosenberg MD Primary Care Provider [phone] Reason for Visit * Reason Onset Date Comments Appointment Request 03/21/2023 Encounter Details Date Type Department Care Team (Late st Contact Info) Description 03/21/2023 Telephone [facility] Medical Group Multispecialty Care - [facility] [address] [facility] [place] [address] Milton Andino MD 3 [facility] [address] [place] [address] Appointment Request Social History Tobacco Use Types Packs/Day [...] on file Legal Sex Male 2:58 PM ZINC SKIMMER Gender Identity Male 07/13/2021 5:19 AM ZINC SKIMMER Sexual Orientation Straight 07/13/2021 5: 19 AM ZINC SKIMMER documented as of this encounter Progress Notes * [place] [facility] CRT - 03/21/2023 1:22 PM CST Called patient and LMOM stating that their appt on 03/25/[address] Andino in [place] will becancelled due to the provider out of the office. Advised patient to call back to get rescheduled. - if patient calls back, please schedule next available [address] Andino (okay for video visit) SKIMMER documented in this encounter Plan of Treatment Upcoming Encounters Date Type Department Care Team (Late st Contact Info) Description 05/15/2024 3:30 PM ZINC SKIMMER Appointment [facility] [place] [address] Pankaj Rosenberg MD [address] [place] [address] 05/25/2024 12:45 PM ZINC SKIMMER Office Visit [facility] Physical Therapy [address] [place] [address] Pankaj Rosenberg MD [address] [place] [address] Maya Magaña, [place] [address] 05/30/2024 3:40 PM ZINC SKIMMER [facility] - [place] [address] [place] [address] Pankaj Rosenberg MD [address] [place] [address] 06/20/2024 3:40 PM ZINC SKIMMER [facility] - [place] [address] [address] [place] [address] Pankaj Rosenberg MD 1188 [facility] [address] [place] [address] 06/21/2024 1:00 PM ZINC SKIMMER Office Visit [facility] Orthopedic & Sports Medicine - [place] [address] [place] [address] Jose Ratliff MD [address] [address] [place] [address] 03/27/2025 1:00 PM ZINC SKIMMER Office Visit [facility] Multispecialty Care - [facility] [address] [facility] [place] [address] Bob Oneal MD 3 [facility] [address] [place] [address] documented as of this encounter Visit Diagnoses Not on filedocumented in this encounter Additional Health Concerns Assessment Noted Time PHQ-9 Depression Total Score: 2 03/09/20 23 2:22 PM CDT documented as of this encounter Care Teams Event Sales Manager Relationship Specialty Start Date End Date Pankaj Rosenberg MD [address] [address] PCP - General INTERNAL MEDICINE 06/15/21 documented as of this encounter
--- OUTSIDE RECORDS SUMMARY | 2024-05-13 10:47 | XMS_ITS | Encounter Summary ---
Author Organization [facility] Address [address] [place] [address]. [place], [place] [address] [place] [address] Care Team Providers Care Casting Operator Name Role Phone Pankaj Rosenberg MD Primary Care Provider [phone] Encounter Details Date Type Department Care Team (Latest Contact Info) Description 09/22/2022 Travel Social History Tobacco Use Types Packs/Day Years Used Date Smoking Tobacco: Never Smokeless Tobacco: Former Snuff, Chew Quit: 08/14/2020 Comments:counseled by Dr Sammie gallardo Alcohol Use Standard Drinks/Week Comments Yes 5 (1 standard drink = 0.6 oz pur e alcohol) socially on weekends PHQ-2 Answer Date Recorded Patient Health Questionnaire-2 Score 0 06/15/2022 Sex and Gender Information Value Date Recorded Sex Assigned at Not on file Legal Sex Male 2:58 PM SURFBOARD DESIGNER Gender Identity Male 07/13/2021 5:19 AM SURFBOARD DESIGNER Sexual Orientation Straight 07/13/2021 5: 19 AM SURFBOARD DESIGNER COVID-19 Exposure Response Date Recorded In the last 10 days, have yo u been in contact with someone who was confirmed or suspected to have Coronavirus/COVID-19? No / Unsure 09/22/2022 7:20 AM CDT documented as of this encounter Plan of Treatment Upcoming Encounters Date Type Department Care Team (Late st Contact Info) Description 05/15/2024 3:30 PM SURFBOARD DESIGNER Appointment [facility] [place] [address] Pankaj Rosenberg MD 1188 [facility] [address] [place] [address] 05/25/2024 12:45 PM SURFBOARD DESIGNER Office Visit [facility] Physical Therapy [facility] [address] [place] [address] Pankaj Rosenberg MD 1188 [facility] [address] [place] [address] Maya Magaña, PT [address] [facility] [place] [address] 05/30/2024 3:40 PM SURFBOARD DESIGNER [facility] - [place] [address] [facility] [address] [place] [address] Pankaj Rosenberg MD [address] [address] 06/20/2024 3:40 PM SURFBOARD DESIGNER [facility]medicine [facility] - [place] [address] [address] [place] [address] Pankaj Rosenberg MD [address] [address] 06/21/2024 1:00 PM SURFBOARD DESIGNER Office Visit [facility] Medical [facility] Orthopedic & Sports Medicine - [place] [address] [place] [address] Jose Ratliff MD [address] [address] [place] [address] 03/27/2025 1:00 PM SURFBOARD DESIGNER Office Visit [facility] Multispecialty Care - [facility] [address] [facility] [place] [address] Bob Oneal MD 3 [facility] [address] [place] [address] documented as of this encounter Visit Diagnoses Not on filedocumented in this encounter Additional Health Concerns Assessment Noted Time PHQ-9 Depression Total Score: 0 08/01/19 22 2:12 PM CDT documented as of this encounter Care Teams Casting Operator Relationship Specialty Start Date End Date Pankaj Rosenberg MD [facility]8 [facility] 157 [place] [address] PCP - General INTERNAL MEDICINE 06/15/21 documented as of this encounter
--- OUTSIDE RECORDS SUMMARY | 2024-05-13 10:47 | XMS_ITS | Encounter Summary ---
Author Organization [facility] Address [address] [place] [address]. [place], [place] [id number] [place] [address] Care Team Providers Care Hospice Aide Name Role Phone Pankaj Rosenberg MD Primary Care Provider [phone] Encounter Details Date Type Department Care Team (Latest Contact Info) Description 09/22/2022 - 09/22/2022 11:59 PM CDT [facility] [address] [place] [address] Pankaj Rosenberg MD [address] [address] Discharge Disposition: Home or Self Care [...] on file Legal Sex Male 2:58 PM ROOM SERVICE WAITER/WAITRESS Gender Identity Male 07/13/2021 5:19 AM ROOM SERVICE WAITER/WAITRESS Sexual Orientation Straight 07/13/2021 5: 19 AM ROOM SERVICE WAITER/WAITRESS COVID-19 Exposure Response Date Recorded In the last 10 days, have yo u been in contact with someone who was confirmed or suspected to have Coronavirus/COVID-19? No / Unsure 09/22/2022 7:20 AM CDT documented as of this encounter Medications at Time of Discharge Blood Glucose Monitoring Suppl ([email or web address] VERIO REFLECT) w/Device Kit 1 Units by Does not apply route 2 (two) times daily. 09/16/2021 CPAP DEVICE, DME,Indications:KARRIE (obstructive sleep apnea) Use daily when sleeping or taking a nap. 1 Device 08/21/2021 Lancets (NovaTorqueTOUCH DELICA PLUS [id number]) [facility] [place] LANCET TO PRICK FINGER TWICE DAILY BEFORE TESTING 09/16/2021 TRUEplus Lancets 33G Misc 09/16/2021 Alcohol Swabs (ALCOHOL WIPES) 70 % Pads USE 1 SWAB TO CLEAN SKIN TWICE DAILY BEFORE TESTING 09/16/2021 3 amLODIPine (NORVASC) 10 MG tabletIndications:Hy pertension associated with type 2 diabetes mellitus ([facility]),Essential hypertension, benign Take 1 tablet (10 mg total) by mouth daily. 90 tablet 1 06/15/2022 3 azelastine (ASTELIN) 0.1 % nasal sprayIndications:All ergic rhinitis, unspecified seasonality, unspecified trigger USE 1 SPRAY IN EACH NOSTRIL TWICE DAILY DIRECTED 90 mL 1 06/15/2022 3 cetirizine 5 MG chewable tabletIndications:En vironmental allergies,Allergic rhinitis, unspecified seasonality, unspecified trigger Chew 5 mg by mouth daily. 3 ketoconazole (NIZORAL) 2 % shampooIndications:S eborrheic dermatitis Apply topically twice a week. 120 mL 1 06/17/2022 4 lidocaine 5 % Place 1 patch onto the skin daily. 09/22/2021 3 lisinopril (PRINIVIL) 10 MG tabletIndications:Hy pertension associated with type 2 diabetes mellitus ([facility]),Essential hypertension, benign Take 1 tablet (10 mg total) by mouth daily. 90 tablet 1 06/15/2022 3 montelukast (SINGULAIR) 10 MG tabletIndications:Al lergic rhinitis, unspecified seasonality, unspecified trigger,Environmenta l allergies Take 1 tablet (10 mg total) by mouth nightly at bedtime. 30 tablet 6 06/15/2022 3 omeprazole (PRILOSEC) 40 MG capsuleIndications:G astroesophageal reflux disease without esophagitis Take 1 capsule (40 mg total) by mouth daily as needed. 90 capsule 1 06/15/2022 3 polyethylene glycol 17 GM/SCOOP powder Take 17 g by mouth daily. 09/22/2021 3 pravastatin (PRAVACHOL) 40 MG tabletIndications:Hy perlipidemia due to type 2 diabetes mellitus ([facility]),Mixed hyperlipidemia Take 1 tablet (40 mg total) by mouth nightly at bedtime. 90 tablet 1 06/15/2022 3 SITagliptin (JANUVIA) 25 mg TabIndications:Type 2 diabetes mellitus with hyperglycemia, without long-term current use of insulin ([facility]) Take 1 tablet (25 mg total) by mouth daily. 30 tablet 5 06/15/2022 3 SUCRALFATE 1 G tabletIndications:Ga stroesophageal reflux disease without esophagitis TAKE 1 TABLET(1 GRAM) BY MOUTH THREE TIMES DAILY BEFORE MEALS 120 tablet 09/01/2021 3 triamcinolone acetonide 55 MCG/ACT nasal inhalerIndications:E nvironmental allergies,Allergic rhinitis, unspecified seasonality, unspecified trigger 03/09 3 documented as of this encounter Plan of Treatment Upcoming Encounters Date Type Department Care Team (Late st Contact Info) Description 05/15/2024 3:30 PM ROOM SERVICE WAITER/WAITRESS Appointment [facility] [place] [address] Pankaj Rosenberg MD [address] [place] [address] 05/25/2024 12:45 PM ROOM SERVICE WAITER/WAITRESS Office Visit [facility] Physical Therapy [address] [place] [address] Pankaj Rosenberg MD [address] [address] Maya Magaña, [place] [address] 05/30/2024 3:40 PM ROOM SERVICE WAITER/WAITRESS Office Visit [facility] Multispecialty Care - [place] [address] [address] [place] [address] Pankaj Rosenberg MD [address] [place] [address] 06/20/2024 3:40 PM ROOM SERVICE WAITER/WAITRESS [facility] [place] [address] [address] [place] [address] [place] [address] [place] [address] 06/21/2024 1:00 PM ROOM SERVICE WAITER/WAITRESS Office Visit [facility] Orthopedic & Sports Medicine - [place] [address] [place] [address] Jose Ratliff MD [address] [address] [place] [address] 03/27/2025 1:00 PM ROOM SERVICE WAITER/WAITRESS Office Visit [facility] Mult[facility]pec[facility]ty [place] [facility] - [facility] [address] [facility] [address] [place] [address] Bob Oneal MD 3 [facility] [address] [place] [address] documented as of this encounter Visit Diagnoses Not on filedocumented in this encounter Additional Health Concerns Assessment Noted Time PHQ-9 Depression Total Score: 0 08/01/19 22 2:12 PM CDT documented as of this encounter Care Teams Hospice Aide Relationship Specialty Start Date End Date Pankaj Rosenberg MD [address] [address] PCP - General INTERNAL MEDICINE 06/15/21 documented as of this encounter
--- OUTSIDE RECORDS SUMMARY | 2024-05-13 10:47 | XMS_ITS | Encounter Summary ---
Author Organization [facility] Address [address] [place] [address]. [place], [place] [id number] [place] [address] Care Team Providers Care Community Relations Director Name Role Phone Pankaj Rosenberg MD Primary Care Provider [phone] Encounter Details Date Type Department Care Team (Latest Contact Info) Description 12/28/2022 Intellinote Message [facility] Multispecialty Care - [place] [address] [address] [place] [address] [facility] Provider Reschedule Appointment with Dr. Rosenberg Social History Tobacco Use Types Packs/Day Years Used Date Smoking Tobacco: Never Smokeless Tobacco: Former Snuff, Chew Quit: 08/14/2020 Comments:counseled by Dr Sammie gallardo Alcohol Use Standard Drinks/Week Comments Yes 5 (1 standard drink = 0.6 oz pur e alcohol) socially on weekends PHQ-2 Answer Date Recorded Patient Health Questionnaire-2 Score 2 11/24/2022 Sex and Gender Information Value Date Recorded Sex Assigned at Not on file Legal Sex Male 2:58 PM QUALITY CONTROL CHECKER Gender Identity Male 07/13/2021 5:19 AM QUALITY CONTROL CHECKER Sexual Orientation Straight 07/13/2021 5: 19 AM QUALITY CONTROL CHECKER documented as of this encounter Plan of Treatment Upcoming Encounters Date Type Department Care Team (Late st Contact Info) Description 05/15/2024 3:30 PM QUALITY CONTROL CHECKER Appointment [facility] [place] [address] [place] [address] [place] [address] [address] [place] [address] 05/25/2024 12:45 PM QUALITY CONTROL CHECKER Office Visit [facility] Physical [facility] [address] [facility] [address] [place] [address] Pankaj Rosenberg MD 1188 [facility] [address] [place] [address] Maya Magaña, [place] [address] 05/30/2024 3:40 PM QUALITY CONTROL CHECKER Office Visit [facility] Multispecialty [facility] [place] [address] [facility] [address] [place] [address] Pankaj Rosenberg MD [address] [address] 06/20/2024 3:40 PM QUALITY CONTROL CHECKER [facility] [place] [address] [place] [address] [address] [place] [address] Pankaj Rosenberg MD [address] [address] 06/21/2024 1:00 PM QUALITY CONTROL CHECKER Office Visit [facility] Medical [facility] - [place] [address] [place] [address] Jose Ratliff MD [address] [address] [place] [address] 03/27/2025 1:00 PM QUALITY CONTROL CHECKER Office Visit [facility] Multispecialty Care - [facility] [address] [facility] [place] [id number] Bob Oneal MD [address] [address] documented as of this encounter Visit Diagnoses Not on filedocumented in this encounter Additional Health Concerns Assessment Noted Time PHQ-9 Depression Total Score: 0 08/01/19 22 2:12 PM CDT documented as of this encounter Care Teams Community Relations Director Relationship Specialty Start Date End Date Pankaj Rosenberg MD [address] [address] PCP - General INTERNAL MEDICINE 06/15/21 documented as of this encounter
--- OUTSIDE RECORDS SUMMARY | 2024-05-13 10:47 | XMS_ITS | Encounter Summary ---
Author Organization [facility] Address [address] [place] [address]. [place], [place] [address] [place] [address] Care Team Providers Care Host/Hostess Head Name Role Phone Pankaj Rosenberg MD Primary Care Provider [phone] Encounter Details Date Type Department Care Team (Latest Contact Info) Description 12/02/2022 MyChart Message Enc [facility] Medical Group Multispecialty Care - [place] [address] [address] [place], [place] [id number] [place] [address] [place] [address] [address] [place], [place] [id number] Side effect from new medications Social History Tobacco Use Types Packs/Day Years [...] on file Legal Sex Male 2:58 PM CONE TREATER Gender Identity Male 07/13/2021 5:19 AM CONE TREATER Sexual Orientation Straight 07/13/2021 5: 19 AM CONE TREATER documented as of this encounter Plan of Treatment Upcoming Encounters Date Type Department Care Team (Late st Contact Info) Description 05/15/2024 3:30 PM [address] [facility] [place] [address] Pankaj Rosenberg MD [address] [address] 05/25/2024 12:45 PM CONE TREATER Office Visit [facility] Physical Therapy [address] [address] Pankaj Rosenberg MD [address] [address] Maya Magaña, [place] [address] 05/30/2024 3:40 PM CONE TREATER Office Visit [facility] Medical [facility] Multispecialty Care - [place] [address] [address] [place] [address] Pankaj Rosenberg MD [address] [address] 06/20/2024 3:40 PM CONE TREATER Telemedicine [facility] Medical [facility] Multispecialty [facility] - [place] [address] [address] [place] [address] Pankaj Rosenberg MD [address] [address] 06/21/2024 1:00 PM CONE TREATER Office Visit [facility] - [place] [address] [place] [address] Jose Ratliff MD [address] [address] [place] [address] 03/27/2025 1:00 PM CONE TREATER Office Visit [facility] Multispecialty Care - [facility] [address] [facility] [address] [place] [address] Bob Oneal MD 3 [facility] [address] [place] [address] documented as of this encounter Visit Diagnoses Not on filedocumented in this encounter Additional Health Concerns Assessment Noted Time PHQ-9 Depression Total Score: 0 08/01/19 22 2:12 PM CDT documented as of this encounter Care Teams Host/Hostess Head Relationship Specialty Start Date End Date Pankaj Rosenberg MD [address] [address] PCP - General INTERNAL MEDICINE 06/15/21 documented as of this encounter
--- OUTSIDE RECORDS SUMMARY | 2024-05-13 10:47 | XMS_ITS | Encounter Summary ---
Author Organization [facility] Address [address] [place] [address]. [place], [place] [id number] [place] [address] Care Team Providers Care Heating Element Winder Name Role Phone Pankaj Rosenberg MD Primary Care Provider [phone] Reason for Visit * Reason Comments Follow Up Pt is following up f or chronic medical issues Physical Encounter Details Date Type Department Care Team (Latest Contact Info) Description 06/15/2022 2:20 PM BRAND COMMUNICATIONS MANAGER Office Visit [facility] - [place] [address] [address] [place] [address] Pankaj Rosenberg MD [address] [place] [address] [phone] Follow Up (Pt is following up for chronic medical issues); Physical Social History Tobacco Use Types Packs/Day Years [...] on file Legal Sex Male 2:58 PM BRAND COMMUNICATIONS MANAGER Gender Identity Male 07/13/2021 5:19 AM BRAND COMMUNICATIONS MANAGER Sexual Orientation Straight 07/13/2021 5: 19 AM BRAND COMMUNICATIONS MANAGER COVID-19 Exposure Response Date Recorded In the last 10 days, have yo u been in contact with someone who was confirmed or suspected to have Coronavirus/COVID-19? No / Unsure 06/15/2022 1:57 PM BRAND COMMUNICATIONS MANAGER documented as of this encounter Last Filed Vital Signs Vital Sign Reading Time Taken Comments Blood Pressure 135/87 06/15/2022 3:10 PM BRAND COMMUNICATIONS MANAGER Pulse 99 06/15/2022 2:21 PM BRAND COMMUNICATIONS MANAGER Temperature 37.3 ??C (99.2 ??F) 06/15/2022 2:21 PM CS T Respiratory Rate 18 06/15/2022 2:21 PM BRAND COMMUNICATIONS MANAGER Oxygen Saturation 97% 06/15/2022 2:21 PM BRAND COMMUNICATIONS MANAGER Inhaled Oxygen Concentration - - Weight 121.5 kg (267 lb 12.8 oz) 06/15/2022 2:21 PM BRAND COMMUNICATIONS MANAGER Height 180.3 cm (5' 11 ) 06/15/2022 2:21 PM BRAND COMMUNICATIONS MANAGER Body Mass Index 37.35 06/15/2022 2:21 PM BRAND COMMUNICATIONS MANAGER documented in this encounter Patient Instructions * Patient Instructions* Pankaj Rosenberg MD - 06/15/2022 2:20 PM BRAND COMMUNICATIONS MANAGER Follow-up within 1 week fasting and early in the morning for your blood draw. Follow-up in 4 months for your next visit D COMMUNICATIONS MANAGER * Attachments The following attachments cannot be sent through Care Everywhere. * Yearly Physical for Adults (Greenlandic) documented in this encounter Progress Notes * Pankaj Rosenberg MD - 06/15/2022 2:20 PM CSTSummary: Annual physical notes Images from the original note were not included. ANNUAL PHYSICAL NOTES Encounter Date: 06/15/2022 Chief Complaint: 27-year-old male presents for Follow Up (Pt is following up for chronic medical issues) and Physical HPI The patient is being seen for a health maintenance evaluation and for follow up chronic medical issues. He is concerned about flaking of the scalp which has been present for a while and not improved mwnhuupz-icl-szndvyj medications. He tells me he has seen dermatology in the past but has not noticed any significant improvement. He was prescribed benzyl peroxide and still having ongoing concerns. Patient wants this addressed at today's visit. ?? Low testosterone levels Patient was seen about 8 weeks ago for his last visit with myself. During that visit, concerns for ongoing chronic fatigue. Patient was very much concerned about his energy level. Has been using his CPAP machine as directed for his sleep apnea however still has ongoing concerns. Elevated BMI at 37.35 kg/m2. Testosterone levels were checked and his levels were found to be low at 196.8 ng/dL. He has a referral into see urology and yet to get established. He wants his testosterone levels checked 1more time. Has never been on testosterone in the past. ?? Hypertension Patient also with hypertension currently on amlodipine 10 mg daily and lisinopril 10 mg daily. Patient taking medications as directed without any adverse side effects. Denies any concerns for shortness of breath, chest tightness with activity, palpitations, ankle swelling, orthopnea, paroxysmal nocturnal or chronic cough. Currently does not follow routinely with cardiology. His blood pressure at today's visit is controlled. ?? Obstructive sleep apnea on CPAP Patient also with obstructive sleep apnea currently on CPAP. His last sleep study was done on 08/06/2021 and currently patient follows with pulmonary and results came back confirming severe obstructive sleep apnea. Currently follows with pulmonary and sees Dr. Andino. Since initiating his CPAP machine, patient reports he is doing a little better but still feels tired. Currently more active than previously as his fiancee got gastric surgery done and they are both motivated to exercise. His weight is currently at 267 pounds. ?? Hyperlipidemia Patient also with hyperlipidemia currently on pravastatin 40 mg daily and taking medications as directed. Denies any muscle cramps on his current dose of medication. Patient with diabetes mellitus and hypertension. His last LDL was about a year ago at 116 with total cholesterol of 195 and triglycerides of 196. He will come fasting for his labs. ?? History of gallbladder polyp Patient with prior history of gallbladder polyp. Plans to follow-up with surgery to discuss next steps for possible surgery. Currently patient reports he has an appointment with surgery in the next few days. He did have episodes of partial bowel obstruction for which this was managed conservatively. His last abdominal ultrasound done on 08/18/2021 showed 2 normal bowel hypoechoic foci attached to th e gallbladder wall most likely polyps. The largest measures 7.8 x 6.3 x 8.4 mm and located closer towards the fundus. No shadowing gallbladder calculi reported. ?? Elevated liver enzymes Noted on previous blood work. Patient denies use of chronic alcohol. His last abdominal ultrasound was done in August 2021 and mild fatty liver infiltration reported without any focal mass. Hepatic and portal veins were reported as patent. The common bile duct measured about 4.4 mm. Denies any concerns for jaundice, pruritus or right upper quadrant abdominal discomfort. ?? GERD Currently patient is on omeprazole 40 mg daily as needed and reports taking medications as directed. He denies any concerns for blood in stool or melena. Currently reports his symptoms are controlledwith medications. He previously was also on sulcalfate which helped. ?? Diabetes mellitus Currently patient is on Januvia 25 mg daily. Has not tolerated metformin in the past. His last A1c was 5.7% in November 2021. Denies any concerns for polyuria, polydipsia, nocturia or recurrent urinary tract infections. No emergency room admissions for diabetic complications. Currently does not follow routinely with endocrinology. He is up to date with his diabetic eye exam done in 02/2022. ?? Allergic rhinitis Currently patient is on Zyrtec, azelastine nasal spray and montelukast 10 mg daily. He reports his symptoms are stable. He currently does not follow routinely with an animal nutrition consultant. ?? Patient Active Problem List Diagnosis ??? Mixed hyperlipidemia ??? Traumatic brain injury (CMS/HCC) ??? Nonalcoholic steatohepatitis ??? Gallbladder polyp ??? Fracture of spinous process of cervical vertebra (CMS/HCC) ??? Essential hypertension, benign ??? Deviated nasal septum ??? Allergic rhinitis ??? Arthrogryposis ??? Type 2 diabetes mellitus with hyperglycemia, without long-term current use of insulin (CMS/HCC) ??? Gastroesophageal reflux disease without esophagitis ??? Nausea and vomiting, unspecified vomiting type ??? Change in bowel function ??? Epigastric burning sensation ??? KARRIE (obstructive sleep apnea) ??? History of gastroschisis ??? Hypertrophy of nasal turbinates ??? S/P exploratory laparotomy ??? S/P small bowel resection General Health: good Dental Health: Sees dentist regularly Vision Health: No vision correction Hearing Health: No hearing problems Immunizations Needed: Influenza and COVID Weight: Obese Body mass index is 37.35 kg/m??. Physical Activity: Acitve lifestyle Prostate Cancer Screening: none Testicular Cancer Screening: None Colorectal Cancer Screening: None Metabolic Screening: Patient needs to be screened today. HCV Screening: done PHQ-9 Screening Score: PHQ-9: 03/26/2022 06/15/2022 PHQ2/PHQ 9 DEPRESSION SCREEN QUESTIONAIRE Little interest or pleasure in doing things Not at all Feeling down, depressed, or hopeless Not at all Patient Health Questionnaire-2 Score 0 How difficult have these problems made it for you to do your work, take care of things at home, or get along with other people? Not difficult at all LITTLE INTEREST OR PLEASURE IN DOING THINGS 0-Not at All FEELING DOWN, DEPRESSSED,OR HOPELESS 0-Not at All PHQ2 DEPRESSION TOTAL SCORE 0 Multiple values from one day are sorted in reverse-chronological order KANCHAN-7 (Generalized Anxiety Disorder) Screening 06/15/2021 06/15/2022 KANCHAN-7 Feeling nervous, anxious and on edge 0 - not at all 0 - not at all Not being able to stop or control worrying 0 - not at all 0 - not at all Worrying too much about different things 0 - not at all 0 - not at all Trouble Relaxing 0 - not at all 0 - not at all Being so restless that it's hard to sit still 0 - not at all 0 - not at all Becoming easily annoyed or irritable 0 - not at all 0 - not at all Feeling afraid as if something awful might happen 0 - not at all 0 - not at all Total Score 0 0 If you checked off any problems, how difficult have those problems made it for you to do your work take care of things at home or get along with other people? not difficult at all not difficult at all Multiple values from one day are sorted in reverse-chronological order Smoking Status: History Smoking Status ??? Never Smokeless Tobacco ??? Former ??? Types: Snuff, Chew ??? Quit date: 08/14/2020 Patient does not meet criteria for Low Dose CT screening Sleep Apnea Risk Factors: KARRIE on CPAP Review of Systems Constitutional: Negative for chills, diaphoresis, fever, malaise/fatigue and weight loss. HENT: Negative. Eyes: Negative. Respiratory: Negative. Cardiovascular: Negative for chest pain, palpitations, orthopnea, claudication, leg swelling and PND. Gastrointestinal: Negative. Genitourinary: Negative. Musculoskeletal: Negative. Skin: Negative. Neurological: Negative. Psychiatric/Behavioral: Negative. Past Medical History: Diagnosis Date ??? Allergy ??? Arthrogryposis ??? Diabetes mellitus (CMS/HCC) ??? Gastroschisis ??? Hyperlipidemia ??? Hypertension ??? Obstructive sleep apnea Past Surgical History: Procedure Laterality Date ??? 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 COLONOSCOPY N/A 08/26/2021 COLONOSCOPY WITH POLYPECTOMY performed by Bob Oneal MD at [facility] OR ??? SEPTOPLASTY ??? SMALL INTESTINE SURGERY Family History Problem Relation Name Age of Onset ??? No Known Problems Mother ??? No Known Problems Father ??? Heart Disease Maternal Grandfather ??? Heart Disease Paternal Grandfather ??? Thyroid Disease Paternal Grandfather Social History Socioeconomic History ??? Marital status: Single Spouse name: Not on file ??? Number of children: Not on file ??? Years of education: Not on file ??? Highest education level: Not on file Occupational History ??? Not on file Tobacco Use ??? Smoking status: Never ??? Smokeless tobacco: Former Types: Snuff, Chew Quit date: 08/14/2020 ??? Tobacco comments: counseled by Dr Rosenberg Vaping Use ??? Vaping Use: Never used Substance and Sexual Activity ??? Alcohol use: Yes Alcohol/week: 5.0 standard drinks Types: 3 Cans of beer per week Comment: socially on weekends ??? Drug use: Never ??? Sexual activity: Yes Other Topics Concern ??? Not on file Social History Narrative ??? Not on file Social Determinants of Health Financial Resource Strain: Not on file Food Insecurity: Not on file Transportation Needs: Not on file Physical Activity: Not on file Stress: Not on file Social Connections: Not on file Intimate Partner Violence: Not on file Housing Stability: Not on file Immunization History Administered Date(s) Administered ??? DTaP-IPV (Kinrix) 05/05/1998 ??? Dtap (Generic) 1994, 1994 ??? Dtp (Generic) 1994, 07/20/1995, 05/05/1998 ??? Fluarix (IIV4) 02/20/1999, 03/27/1999, 03/28/2000 ??? HPV4 (Gardasil) 04/11/2013 ??? Hepatitis A (Generic) 08/11/2007 ??? Hepatitis A (Havrix [address].U) 04/11/2013 ??? Hepatitis A Vaccine 08/11/2007 ??? Hepatitis B Pediatric 1994, 1994, 1994 ??? Hib (Generic) 1994, 1994, 1994, 07/20/1995 ??? Hib (Generic;4 Dose) 1994, 1994, 07/20/1995 ??? Hib 4 Dose Schedule 1994 ??? Influenza 02/20/1999, 03/27/1999, 03/28/2000, 03/29/2007, 03/22/2008, 02/05/2009, 02/28/2012, 2013 ??? Influenza Adult (Generic) 04/03/2013 ??? MMR (MMRII) 04/27/1995, 05/05/1998 ??? Meningococcal (Menactra) 04/11/2013 ??? PFIZER COVID-19 (ORIGINAL FORMULATION, PURPLE CAP), MRNA, LNP-S, PF, 30 MCG/0.3 ML DOSE 08/28/2020, 09/20/2020 ??? Pneumococcal (Pneumovax 23) 08/21/2021 ??? Polio IPV (Ipol) 1994, 1994 ??? Polio Ipv (Generic) 05/05/1998 ??? Polio Opv (Generic) 1994, 07/20/1995, 05/05/1998 ??? Tdap (Generic) 08/11/2007, 08/25/2013 ??? Varicella (Varivax) 04/27/1995, 08/11/2007 Current Outpatient Medications Medication Sig Dispense Refill ??? Alcohol Swabs (ALCOHOL WIPES) 70 % Pads USE 1 SWAB TO CLEAN SKIN TWICE DAILY BEFORE TESTING ??? amLODIPine (NORVASC) 10 MG tablet Take 1 tablet (10 mg total) by mouth daily. 90 tablet 1 ??? azelastine (ASTELIN) 0.1 % nasal spray USE 1 SPRAY IN EACH NOSTRIL TWICE DAILY DIRECTED 90 mL 1 ??? Blood Glucose Monitoring Suppl (ONETOUCH VERIO REFLECT) w/Device Kit 1 Units by Does not apply route 2 (two) times daily. ??? cetirizine 5 MG chewable tablet Chew 5 mg by mouth daily. ??? CPAP DEVICE, DME, Use daily when sleeping or taking a nap. 1 Device 0 ??? [START ON 06/17/2022] ketoconazole (NIZORAL) 2 % shampoo Apply topically twice a week. 120 mL 1 ??? Lancets (Broadcast Grade Weather [employer] Channel Branding Graphics Display SystemTOUCH DELICA PLUS [id number]) [facility] USE 1 LANCET TO PRICK FINGER TWICE DAILY BEFORE TESTING ??? lidocaine 5 % Place 1 patch onto the skin daily. ??? lisinopril (PRINIVIL) 10 MG tablet Take 1 tablet (10 mg total) by mouth daily. 90 tablet 1 ??? montelukast (SINGULAIR) 10 MG tablet Take 1 tablet (10 mg total) by mouth nightly at bedtime. 30 tablet 6 ??? omeprazole (PRILOSEC) 40 MG capsule Take 1 capsule (40 mg total) by mouth daily as needed. 90 capsule 1 ??? polyethylene glycol 17 GM/SCOOP powder Take 17 g by mouth daily. ??? pravastatin (PRAVACHOL) 40 MG tablet Take 1 tablet (40 mg total) by mouth nightly at bedtime. 90 tablet 1 ??? SITagliptin (JANUVIA) 25 mg Tab Take 1 tablet (25 mg total) by mouth daily. 30 tablet 5 ??? SUCRALFATE 1 G tablet TAKE 1 TABLET(1 GRAM) BY MOUTH THREE TIMES DAILY BEFORE MEALS 120 tablet 0 ??? triamcinolone acetonide 55 MCG/ACT nasal inhaler ??? TRUEplus Lancets 33G [facility] No current facility-administered medications for this visit. Current Outpatient Medications on File Prior to Visit Medication Sig ??? Alcohol Swabs (ALCOHOL WIPES) 70 % Pads USE 1 SWAB TO CLEAN SKIN TWICE DAILY BEFORE TESTING ??? Blood Glucose Monitoring Suppl (ONETOUCH VERIO REFLECT) w/Device Kit 1 Units by Does not apply route 2 (two) times daily. ??? cetirizine 5 MG chewable tablet Chew 5 mg by mouth daily. ??? CPAP DEVICE, DME, Use daily when sleeping or taking a nap. ??? Lancets (Broadcast Grade Weather [employer] Channel Branding Graphics Display SystemTOUCH DELICA PLUS [id number]) [facility] USE 1 LANCET TO PRICK FINGER TWICE DAILY BEFORE TESTING ??? lidocaine 5 % Place 1 patch onto the skin daily. ??? polyethylene glycol 17 GM/SCOOP powder Take 17 g by mouth daily. ??? SUCRALFATE 1 G tablet TAKE 1 TABLET(1 GRAM) BY MOUTH THREE TIMES DAILY BEFORE MEALS ??? triamcinolone acetonide 55 MCG/ACT nasal inhaler ??? TRUEplus Lancets 33G [facility] No current facility-administered medications on file prior to visit. No Known Allergies Objective: Filed Vitals: 06/15/22 1421 06/15/22 1510 BP: (!) 142/88 135/87 Pulse: 99 Resp: 18 Temp: 99.2 ??F (37.3 ??C) TempSrc: Temporal SpO2: 97% Weight: 121.5 kg (267 lb 12.8 oz) Height: 5' 11 (1.803 m) Physical Exam Vitals and nursing note reviewed. Constitutional: General: He is not in acute distress. Appearance: He is not ill-appearing, toxic-appearing or diaphoretic. HENT: Head: Normocephalic and atraumatic. Right Ear: Tympanic membrane, ear canal and external ear normal. There is no impacted cerumen. Left Ear: Tympanic membrane, ear canal and external ear normal. There is no impacted cerumen. Nose: Nose normal. No congestion. Mouth/Throat: Mouth: [...] or rebound. Hernia: No hernia is present. Comments: Well healed surgical scars. Musculoskeletal: General: No swelling, tenderness, deformity or [...] symmetric. Reflexes normal. Psychiatric: Mood and Affect: Mood and affect normal. Behavior: Behavior normal. Thought Content: Thought content normal. Cognition and Memory: Memory normal. Judgment: Judgment normal. Assessment & Plan: Chuck was seen today for follow up and physical. Diagnoses and all orders for this visit: Annual physical exam - VENIPUNC ARM DRAW - CBC W/DIFF AUTOMATED; Future - COMPREHENSIVE METABOLIC PANEL; Future - LIPID PANEL; Future - TSH W/REFLEX; Future - HEMOGLOBIN, GLYCOSYLATED; Future - VITAMIN D, 25 OH; Future - HEPATITIS C ANTIBODY; Future - URINALYSIS AUTO DIP - ALBUMIN URINE RANDOM Low testosterone - TESTOSTERONE, TOTAL; Future Seborrheic dermatitis - ketoconazole (NIZORAL) 2 % shampoo; Apply topically twice a week. Hypertension associated with type 2 diabetes mellitus (CMS/HCC) - amLODIPine (NORVASC) 10 MG tablet; Take 1 tablet (10 mg total) by mouth daily. - lisinopril (PRINIVIL) 10 MG tablet; Take 1 tablet (10 mg total) by mouth daily. Essential hypertension, benign - amLODIPine (NORVASC) 10 MG tablet; Take 1 tablet (10 mg total) by mouth daily. - lisinopril (PRINIVIL) 10 MG tablet; Take 1 tablet (10 mg total) by mouth daily. Allergic rhinitis, unspecified seasonality, unspecified trigger - azelastine (ASTELIN) 0.1 % nasal spray; USE 1 SPRAY IN EACH NOSTRIL TWICE DAILY DIRECTED - montelukast (SINGULAIR) 10 MG tablet; Take 1 tablet (10 mg total) by mouth nightly at bedtime. Environmental allergies - montelukast (SINGULAIR) 10 MG tablet; Take 1 tablet (10 mg total) by mouth nightly at bedtime. Gastroesophageal reflux disease without esophagitis - omeprazole (PRILOSEC) 40 MG capsule; Take 1 capsule (40 mg total) by mouth daily as needed. Hyperlipidemia due to type 2 diabetes mellitus (CMS/HCC) - pravastatin (PRAVACHOL) 40 MG tablet; Take 1 tablet (40 mg total) by mouth nightly at bedtime. Mixed hyperlipidemia - pravastatin (PRAVACHOL) 40 MG tablet; Take 1 tablet (40 mg total) by mouth nightly at bedtime. Type 2 diabetes mellitus with hyperglycemia, without long-term current use of insulin (CMS/HCC) - SITagliptin (JANUVIA) 25 mg Tab; Take 1 tablet (25 mg total) by mouth daily. I spent 40 minutes today reviewing the patient's medical record, obtaining history, performing an exam, ordering medications, tests, and/or procedures, documenting in the medical record, referring and/or communicating with other health care providers, counseling and educating the patient, reviewingand communicating test results and coordinating care. DRAGON: This dictation was at least in part performed using Hara and there may be some inherent flaws in this truck crane operator helper due to the nature of this program. MD Pankaj QUEVEDO MD Internal Medicine [facility]. D COMMUNICATIONS MANAGER documented in this encounter Plan of Treatment Upcoming Encounters Date Type Department Care Team (Late st Contact Info) Description 05/15/2024 3:30 PM BRAND COMMUNICATIONS MANAGER Appointment [facility] [place] [address] Pankaj Rosenberg MD [address] [facility] [address] [place] [address] 05/25/2024 12:45 PM BRAND COMMUNICATIONS MANAGER Office Visit [facility] Physical Therapy [address] [address] Pankaj Rosenberg MD [address] [address] Maya Magaña, [place] [address] 05/30/2024 3:40 PM BRAND COMMUNICATIONS MANAGER [facility] [place] [address] [address] [place] [address] Pankaj Rosenberg MD [facility] [address] [address] 06/20/2024 3:40 PM BRAND COMMUNICATIONS MANAGER [facility] [place] [address] [address] [place] [address] Pankaj Rosenberg MD [facility] [address] [address] 06/21/2024 1:00 PM BRAND COMMUNICATIONS MANAGER Office Visit [facility] [place] [address] [place] [address] Jose Ratliff MD [id number] [place] [address] 03/27/2025 1:00 PM BRAND COMMUNICATIONS MANAGER Office Visit [facility] Multispec[facility] Care - [address] [place] [address] Bob Oneal MD [address] [facility] [place] [address] documented as of this encounter Procedures Procedure Name Priority Date/Time Associated Diagnosis Comments VENIPUNC ARM DRAW Routine 06/15/2022 2:5 7 PM BRAND COMMUNICATIONS MANAGER Annual physical exam URINALYSIS AUTO DIP Routine 06/15/2022 Annual physical exam ALBUMIN URINE RANDOM W/CREATININE Routine 06/15/2022 Annual physical exam documented in this encounter Results * ALBUMIN URINE RANDOM (06/15/2022) MICROALBUMIN (U) 30 MG- [address] [place] CREATININE RANDOM (U) [address] [place] MICROALB/CREAT <30 MG-[address] [place] Comment:normal URINE SPECIMEN / Unknown 06/15/2022 Pankaj Rosenberg MD URINE ORDERABLES Final Result [address], [place] [address] [place] [address], * URINALYSIS AUTO DIP (06/15/2022) COLOR (U) YELLOW MG[address], [place] TRANSPARENCY CLEAR MG[address] [place] GLUCOSE (U) NEGATIVE NEGATIVE MG/DL MG[address], [place] BILIRUBIN (U) NEGATIVE NEGATIVE MG-[address], [place] KETONES MG/DL (U) NEGATIVE NEGATIVE MG/DL MG[address], [place] SPECIFIC GRAVITY (U) >=1.030 1.001 - 1.035 [address], [place] BLOOD (U) NEGATIVE NEGATIVE MG[address], [place] U PH 7.0 5.0 - 9.0 MG[address], [place] PROTEIN (U) NEGATIVE NEGATIVE mg/dL MG[address], [place] UROBILINOGEN 0.2 0.2 - 1.0 EU/dL = mg/dL MG-[address], [place] NITRITES NEGATIVE NEGATIVE MG/DL MG-[address], [place] LEUKOCYTES (U) NEGATIVE NEGATIVE MG-[address], [place] URINE SPECIMEN OBTAINED BY CLEAN CATCH PROCEDURE / Unknown 06/15/2022 Pankaj Rosenberg MD URINE ORDERABLES Final Result MG[address], [place] [address] [facility] [address] [place] [address], documented in this encounter Visit Diagnoses Diagnosis Annual physical exam- Primary Routine general medical examination at a health care facility Low testosterone Other testicular hypofunction Seborrheic dermatitis Seborrheic dermatitis, unspecified Hypertension associated with type 2 diabetes mellitus ([facility]) Essential hypertension, benign Allergic rhinitis, unspecified seasonality, unspecified trigger Environmental allergies Allergic rhinitis, cause unspecified Gastroesophageal reflux disease without esophagitis Esophageal reflux Hyperlipidemia due to type 2 diabetes mellitus ([facility]) Mixed hyperlipidemia Type 2 diabetes mellitus with hyperglycemia, without long-term current use of insulin ([facility]) documented in this encounter Additional Health Concerns Assessment Noted Time PHQ-9 Depression Total Score: 0 08/01/19 22 2:12 PM CDT documented as of this encounter Care Teams Heating Element Winder Relationship Specialty Start Date End Date Pankaj Rosenberg MD 1188 [facility] [address] [place] [address] PCP - General INTERNAL MEDICINE 06/15/21 documented as of this encounter
--- OUTSIDE RECORDS SUMMARY | 2024-05-13 10:47 | XMS_ITS | Encounter Summary ---
Author Organization [facility] Address [address] [place] [address]. [place] [address] [place] [address] Care Team Providers Care Ship Painter Helper Name Role Phone Pankaj Rosenberg MD Primary Care Provider [phone] Encounter Details Date Type Department Care Team (Latest Contact Info) Description 11/01/2022 Scan HEALTH INFO SRVCS Scanned, Doc Med [...] on file Legal Sex Male 2:58 PM BULK MAIL CLERK Gender Identity Male 07/13/2021 5:19 AM BULK MAIL CLERK Sexual Orientation Straight 07/13/2021 5: 19 AM BULK MAIL CLERK documented as of this encounter Plan of Treatment Upcoming Encounters Date Type Department Care Team (Late st Contact Info) Description 05/15/2024 3:30 PM BULK MAIL CLERK Appointment [facility] [address] Pankaj Rosenberg MD 1188 [facility] [address] [place] [address] 05/25/2024 12:45 PM BULK MAIL CLERK Office Visit [facility] Physical Therapy [address] [place] [address] Pankaj Rosenberg MD [address] [address] Maya Magaña, [place] [address] 05/30/2024 3:40 PM BULK MAIL CLERK Office Visit [facility] Multispecialty Care - [place] [address] [address] [place] [address] Pankaj Rosenberg MD [facility] [address] 06/20/2024 3:40 PM BULK MAIL CLERK [facility] - [place] [address] [address] [place] [address] Pankaj Rosenberg MD [facility] [address] 06/21/2024 1:00 PM BULK MAIL CLERK Office Visit [facility] Medical Group Orthopedic & Sports Medicine - [place] [address] [place] [address] Jose Ratliff MD 670 [facility] [address] [place] [address] 03/27/2025 1:00 PM BULK MAIL CLERK Office Visit [facility] Medical Group Multispecialty Care - [facility] [address] [facility] [address] [place] [address] Bob Oneal MD 3 [facility] [address] [place] [address] documented as of this encounter Visit Diagnoses Not on filedocumented in this encounter Additional Health Concerns Assessment Noted Time PHQ-9 Depression Total Score: 0 08/01/19 22 2:12 PM CDT documented as of this encounter Care Teams Ship Painter Helper Relationship Specialty Start Date End Date Panakj Rosenberg MD [address] [address] PCP - General INTERNAL MEDICINE 06/15/21 documented as of this encounter
--- OUTSIDE RECORDS SUMMARY | 2024-05-13 10:47 | XMS_ITS | Encounter Summary ---
Author Organization [facility] Address [address] [place] [address]. [place] [address] [place] [address] Care Team Providers Care Grocery Stocker Name Role Phone Pankaj Rosenberg MD Primary Care Provider [phone] Encounter Details Date Type Department Care Team (Latest Contact Info) Description 07/26/2022 Scan HEALTH INFO SRVCS Scanned, Doc Med [...] on file Legal Sex Male 2:58 PM SALES SYSTEMS ENGINEER Gender Identity Male 07/13/2021 5:19 AM SALES SYSTEMS ENGINEER Sexual Orientation Straight 07/13/2021 5: 19 AM SALES SYSTEMS ENGINEER documented as of this encounter Plan of Treatment Upcoming Encounters Date Type Department Care Team (Late st Contact Info) Description 05/15/2024 3:30 PM SALES SYSTEMS ENGINEER Appointment [facility] [place] [address] Pankaj Rosenberg MD 1188 [facility] [address] [place] [address] 05/25/2024 12:45 PM SALES SYSTEMS ENGINEER Office Visit [facility] Physical Therapy [address] [place] [address] Pankaj Rosenberg MD [address] [address] Maya Magaña, [place] [address] 05/30/2024 3:40 PM SALES SYSTEMS ENGINEER Office Visit [facility] Multispecialty Care - [place] [address] [address] [place] [address] Pankaj Rosenberg MD [facility] [address] 06/20/2024 3:40 PM SALES SYSTEMS ENGINEER [facility] - [place] [address] [address] [place] [address] Pankaj Rosenberg MD [facility] [address] 06/21/2024 1:00 PM SALES SYSTEMS ENGINEER Office Visit [facility] Medical Group Orthopedic & Sports Medicine - [place] [address] [place] [address] Jose Ratliff MD 670 [facility] [id number] [place] [address] 03/27/2025 1:00 PM SALES SYSTEMS ENGINEER Office Visit [facility] Medical Group Multispecialty Care - [facility] 3 [facility] [address] [place] [address] Bob Oneal MD 3 [facility] [address] [place] [address] documented as of this encounter Visit Diagnoses Not on filedocumented in this encounter Additional Health Concerns Assessment Noted Time PHQ-9 Depression Total Score: 0 08/01/19 22 2:12 PM CDT documented as of this encounter Care Teams Grocery Stocker Relationship Specialty Start Date End Date Pankaj Rosenberg MD [address] [address] PCP - General INTERNAL MEDICINE 06/15/21 documented as of this encounter
--- OUTSIDE RECORDS SUMMARY | 2024-05-13 10:47 | XMS_ITS | Encounter Summary ---
Author Organization [facility] Address [address] [place] [address]. [place], [place] [address] [place] [address] Care Team Providers Care President And Chief Commercial Officer Name Role Phone Pankaj Rosenberg MD Primary Care Provider [phone] Reason for Visit * Reason Comments Procedure (SCAN) Encounter Details Date Type Department Care Team ([facility] Contact Info) Description 07/13/2022 Scan HEALTH INFO SRVCS Scanned, Doc Med Group Procedure (SCAN) Social History Tobacco Use Types Packs/Day [...] on file Legal Sex Male 2:58 PM EXHAUST AND MUFFLER FITTER Gender Identity Male 07/13/2021 5:19 AM EXHAUST AND MUFFLER FITTER Sexual Orientation Straight 07/13/2021 5: 19 AM EXHAUST AND MUFFLER FITTER COVID-19 Exposure Response Date Recorded In the last 10 days, have yo u been in contact with someone who was confirmed or suspected to have Coronavirus/COVID-19? No / Unsure 06/15/2022 1:57 PM EXHAUST AND MUFFLER FITTER documented as of this encounter Plan of Treatment Upcoming Encounters Date Type Department Care Team ([facility] Contact Info) Description 05/15/2024 3:30 PM EXHAUST AND MUFFLER FITTER Appointment [facility] [place] [address] Pankaj Rosenberg MD [address] [facility] [address] [place] [address] 05/25/2024 12:45 PM EXHAUST AND MUFFLER FITTER Office Visit [facility] Physical Therapy [facility] [address] Pankaj Rosenberg MD [address] [address] Maya Magaña, [place] [address] 05/30/2024 3:40 PM EXHAUST AND MUFFLER FITTER Office Visit [facility] Medical [facility] Multispecialty [facility] - [place] [address] [address] [place] [address] Pankaj Rosenberg MD [address] [address] 06/20/2024 3:40 PM EXHAUST AND MUFFLER FITTER Telemedicine [facility] - [place] [address] [address] [place] [address] Pankaj Rosenberg MD [address] [address] 06/21/2024 1:00 PM EXHAUST AND MUFFLER FITTER Office Visit [facility] Medical Group Orthopedic & Sports Medicine - [place] [address] [place] [address] Jose Ratliff MD [address] [address] [place] [address] 03/27/2025 1:00 PM EXHAUST AND MUFFLER FITTER Office Visit [facility] Medical Group Multispecialty Care - [facility] [address] [facility] [place] [address] Bob Oneal MD [address] [facility] [address] [place] [address] documented as of this encounter Procedures Procedure Name Priority Date/Time Associated Diagnosis Comments PROCEDURE GENERIC (SCAN ORDER) 07/13/2022 documented in this encounter Results * PROCEDURE GENERIC (07/13/2022) 07/13/2022 us Doc Med Group Scanned SCANNING Final Resu lt documented in this encounter Visit Diagnoses Not on filedocumented in this encounter Additional Health Concerns Assessment Noted Time PHQ-9 Depression Total Score: 0 08/01/19 22 2:12 PM CDT documented as of this encounter Care Teams President And Chief Commercial Officer Relationship Specialty Start Date End Date Pankaj Rosenberg MD [address]8 [facility] [address] [place] [address] PCP - General INTERNAL MEDICINE 06/15/21 documented as of this encounter
--- OUTSIDE RECORDS SUMMARY | 2024-05-13 10:47 | XMS_ITS | Encounter Summary ---
Author Organization [facility] Address [address] [place] [address]. [place], [place] [address] [place] [address] Care Team Providers Care Oracle Apex Developer Name Role Phone Pankaj Rosenberg MD Primary Care Provider [phone] Encounter Details Date Type Department Care Team (Latest Contact Info) Description 09/22/2022 Hospital Encounter [facility] [address] [facility] [address] [facility] [place] [address] Pankaj Rosenberg MD 1188 [facility] [address] [place] [address] Discharge Disposition: Home or Self [...] on file Legal Sex Male 2:58 PM SPRING PRODUCTION SUPERVISOR Gender Identity Male 07/13/2021 5:19 AM SPRING PRODUCTION SUPERVISOR Sexual Orientation Straight 07/13/2021 5: 19 AM SPRING PRODUCTION SUPERVISOR documented as of this encounter Medications at Time of Discharge Blood Glucose Monitoring Suppl (ONETOUCH VERIO REFLECT) w/Device Kit 1 Units by Does not apply route 2 (two) times daily. 09/16/2021 CPAP DEVICE, DME,Indications:KARRIE (obstructive sleep apnea) Use daily when sleeping or taking a nap. 1 Device 08/21/2021 Lancets (ONETOUCH DELICA PLUS [id number]) [facility] USE 1 LANCET TO PRICK FINGER TWICE DAILY BEFORE TESTING 09/16/2021 TRUEplus Lancets 33G [facility] 09/16/2021 Alcohol Swabs (ALCOHOL WIPES) 70 % Pads USE 1 SWAB TO CLEAN SKIN TWICE DAILY BEFORE TESTING 09/16/2021 3 amLODIPine (NORVASC) 10 MG tabletIndications:Hy pertension associated with type 2 diabetes mellitus ([facility]),Essential hypertension, benign Take 1 tablet (10 mg [...] pertension associated with type 2 diabetes mellitus ([facility]),Essential hypertension, benign Take 1 tablet (10 mg [...] perlipidemia due to type 2 diabetes mellitus ([facility]),Mixed hyperlipidemia Take 1 tablet (40 mg total) by mouth nightly at bedtime. 90 tablet 1 06/15/2022 3 SITagliptin (JANUVIA) 25 mg TabIndications:Type 2 diabetes mellitus with hyperglycemia, without long-term current use of insulin ([facility]) Take 1 tablet (25 mg total) by [...] st Contact Info) Description 05/15/2024 3:30 PM SPRING PRODUCTION SUPERVISOR Appointment [facility] [place] [address] Pankaj Rosenberg MD [address] [place] [address] 05/25/2024 12:45 PM SPRING PRODUCTION SUPERVISOR Office Visit [facility] Physical Therapy [address] [place] [address] Pankaj Rosenberg MD [facility] [address] Maya Magaña, [place] [address] 05/30/2024 3:40 PM SPRING PRODUCTION SUPERVISOR Office Visit [facility] Multispecialty Care - [place] [address] [address] [place] [address] [place] [address] [place] [address] 06/20/2024 3:40 PM SPRING PRODUCTION SUPERVISOR Telemedicine [facility] Multispecialty [facility] - [place] [address] [address] [place] [address] Pankaj Rosenberg MD [facility] [address] 06/21/2024 1:00 PM SPRING PRODUCTION SUPERVISOR Office Visit [facility] Orthopedic & Sports Medicine - [place] [address] [place] [address] Jose Ratliff MD 670 [facility] [address] [place] [address] 03/27/2025 1:00 PM SPRING PRODUCTION SUPERVISOR Office Visit [facility] Multispecialty Care - [facility] 3 [facility], [address] [place] [address] Bob Oneal MD 3 [facility] [address] [place] [address] documented as of this encounter Visit Diagnoses Not on filedocumented in this encounter Additional Health Concerns Assessment Noted Time PHQ-9 Depression Total Score: 0 08/01/19 2:12 PM CDT documented as of this encounter Care Teams Oracle Apex Developer Relationship Specialty Start Date End Date Pankaj Rosenberg MD [address] [place] [address] PCP - General INTERNAL MEDICINE 06/15/21 documented as of this encounter
--- OUTSIDE RECORDS SUMMARY | 2024-05-13 10:47 | XMS_ITS | Encounter Summary ---
Author Organization [facility] Address [address] [place] [address]. [place], [place] [address] [place] [address] Care Team Providers Care Delivery Lead Name Role Phone Pankaj Rosenberg MD Primary Care Provider [phone] Reason for Visit * Reason Onset Date Comments Follow Up Call 07/21/2022 Encounter Details Date Type Department Care Team (Late st Contact Info) Description 07/21/2022 Telephone [facility] Medical Group Multispecialty Care - [place] [address] [address] [place], [place] [address] Pankaj Rosenberg MD [address] [place] [address] [address] [place] [address] Follow Up Call Social History [...] on file Legal Sex Male 2:58 PM RIBBON LAP MACHINE TENDER Gender Identity Male 07/13/2021 5:19 AM RIBBON LAP MACHINE TENDER Sexual Orientation Straight 07/13/2021 5: 19 AM RIBBON LAP MACHINE TENDER documented as of this encounter Progress Notes * Rocio Marie MA - 07/21/2022 11:23 AM CST Pt called back and informed me that he had gallbladder removal last Tuesday, it was outpatient and he is feeling fine and he has a follow up with the surgeon on 07/30/22 Pt informed he has nurse visit with our office on 07/28/22 Informed pt to call our office if any issues.Pt verbalized understanding ON LAP MACHINE TENDER * Rocio Marie MA - 07/21/2022 10:05 AM CST Called and lm on vm to call our office ON LAP MACHINE TENDER * Pankaj Rosenberg MD - 07/21/2022 7:56 AM CST Patient currently on oxygen at an outside hospital for gallbladder polyp surgery. Please call and find out if patient is discharged. Schedule for TCM as appropriate. Thank you. ON LAP MACHINE TENDER documented in this encounter Plan of Treatment Upcoming Encounters Date Type Department Care Team (Late st Contact Info) Description 05/15/2024 3:30 PM RIBBON LAP MACHINE TENDER Appointment [place] [address] Pankaj Rosenberg MD [address] [place] [address] 05/25/2024 12:45 PM RIBBON LAP MACHINE TENDER Office Visit [facility] Physical Therapy [address] [place] [address] Pankaj Rosenberg MD [facility] [address] Maya Magaña, [place] [address] 05/30/2024 3:40 PM RIBBON LAP MACHINE TENDER Office Visit [facility] Multispecialty Care - [place] [address] [address] [place] [address] Pankaj Rosenberg MD [address] [address] 06/20/2024 3:40 PM RIBBON LAP MACHINE TENDER [facility] - [place] [address] [address] [place] [address] Pankaj Rosenberg MD [address] [address] 06/21/2024 1:00 PM RIBBON LAP MACHINE TENDER Office Visit [facility] Orthopedic & Sports Medicine - [place] [address] [place] [address] Jose Ratliff MD [address] [place] [address] [place] [address] 03/27/2025 1:00 PM RIBBON LAP MACHINE TENDER Office Visit [facility] Multispecialty [facility] - [facility] 3 [facility], [address] [place] [address] Bob Oneal MD 3 [facility] [address] [place] [address] documented as of this encounter Visit Diagnoses Not on filedocumented in this encounter Additional Health Concerns Assessment Noted Time PHQ-9 Depression Total Score: 0 08/01/19 2:12 PM CDT documented as of this encounter Care Teams Delivery Lead Relationship Specialty Start Date End Date Pankaj Rosenberg MD [address] [place] [address] PCP - General INTERNAL MEDICINE 06/15/21 documented as of this encounter
--- OUTSIDE RECORDS SUMMARY | 2024-05-13 10:47 | XMS_ITS | Encounter Summary ---
Author Organization [facility] Address [address] [place] [address]. [place], [place] [address] [place] [address] Care Team Providers Care Bindery Technician Name Role Phone Pankaj Rosenberg MD Primary Care Provider [phone] Reason for Referral * Consultation (Urgent) - Closed Specialty Diagnoses / Procedures Referred By Contac t Referred To Contact ENDOCRINOLOGY Diagnoses Low testosterone in male Procedures OFFICE/OUTPT VISIT,NEW,LEVL III OFFICE/OUTPT VISIT,NEW,LEVL IV OFFICE/OUTPT VISIT,NEW,LEVL V OFFICE/OUTPT VISIT,EST,LEVL III OFFICE/OUTPT VISIT,EST,LEVL IV OFFICE/OUTPT VISIT,EST,LEVL V Pankaj Rosenberg MD [address] [facility] [address] [place] [address] Phone: tel: fax: Lupe Tenorio MD [address] [facility] 1 [place] [address] Phone: tel: fax: Referral ID Status Reason Start Date Expiration Date Visits Re quested Visits Authorized [id number] Closed 11/24/2022 12/26/2023 99 99 Reason for Visit * Reason Comments Diabetes Sleep Problem Hypertension Depression Follow Up Your testosterone le vels, chronic medical issues Ear Problem Encounter Details Date Type Department Care Team (Latest Contact Info) Description 11/24/2022 4:00 PM CDT Office Visit [facility] Medical Group Multispecialty Care [place] [address] [place] [address] [address] [place] [address] Pankaj Rosenberg MD [address] [facility] 157 [place] [address] Diabetes; Sleep Problem; Hypertension; Depression; Follow Up (Your testosterone levels, chronic medical issues); Ear Problem Social History Tobacco Use Types Packs/Day [...] on file Legal Sex Male 2:58 PM OPERATIONS VICE PRESIDENT Gender Identity Male 07/13/2021 5:19 AM OPERATIONS VICE PRESIDENT Sexual Orientation Straight 07/13/2021 5: 19 AM OPERATIONS VICE PRESIDENT documented as of this encounter Last Filed Vital Signs Vital Sign Reading Time Taken Comments Blood Pressure 139/88 11/24/2022 4:10 PM CDT Pulse 116 11/24/2022 4:10 PM CDT Temperature 36.3 ??C (97.3 ??F) 11/24/2022 4:10 PM CD T Respiratory Rate 18 11/24/2022 4:10 PM CDT Oxygen Saturation 97% 11/24/2022 4:10 PM CDT Inhaled Oxygen Concentration - - Weight 119.3 kg (263 lb) 11/24/2022 4:10 PM CDT Height 180.3 cm (5' 11 ) 11/24/2022 4:10 PM CDT Body Mass Index 36.68 11/24/2022 4:10 PM CDT documented in this encounter Patient Instructions * Patient Instructions* Pankaj Rosenberg MD - 11/24/2022 4:00 PM CDT Follow up in 4 weeks for your mood medication and ear issues. documented in this encounter Progress Notes * Pankaj Rosenberg MD - 11/24/2022 4:00 PM CDTSumaly: Follow-up note Images from the original note were not included. Internal Medicine Outpatient Progress Note CC: Diabetes, Sleep Problem, Hypertension, Depression, Follow Up (Your testosterone levels, chronicmedical issues), and Ear Problem HPI: Chuck Barlow is a 27-year-old male who presents for follow-up for hypertension, sleep apnea and diabetes mellitus and to discuss recent test results as well as concerns about severe issues. Patient with hypertension currently on amlodipine 10 mg daily with lisinopril 10 mg daily. He is taking his medications as directed with no adverse side effects. He tells me he did have a big cup of coffee prior to today's visit. Slightly tachycardic with heart rate around 116 but without any chestpain or shortness of breath. Taking medications as directed. Currently not following with cardiology. Patient also with hyperlipidemia currently on pravastatin 40 mg nightly. He endorses compliance to his medications with no myalgias. His last blood work done did show elevated triglycerides above 250. Adding fenofibrate at today's visit. Patient agreeable to plan. Patient is hypertensive. Patient also concerned about worsening depression. He has been in and out of the hospital multiple times recently due to gastrointestinal issues. Most of his concerns have been partial intestinal obstructions due to underlining history of gastrochisis and surgeries done in the past. He does have underlying intestinal adhesions. Recently underwent gallbladder surgery as well. He has an upcoming wedding on 01/15/2023 and this has been a little pressure on him as well. He is interested in discussing his treatment options. No suicidal thoughts or intentions to harm. Denies any ronn, delusions or hallucinations. Not on medications at this time. Not following with therapy. His labs recently came back showing very low testosterone was below 200. He does have a biological child who is about 4 years old. He is concerned about possible infertility given that he is about toget and is interested in having children right away after his wedding. Has ongoing chronic fatigue. Patient also with underlining obstructive sleep apnea for which he is using his CPAP as directed. He currently has a nasal prongs. Recently was seen by pulmonary and doing well. Still has ongoing fatigue. Using his CPAP as directed. Patient also with diabetes mellitus. His last A1c was 6.6%. He is currently on Januvia 25 mg daily and tolerating medications with no adverse side effects. No polyuria, polydipsia or nocturia. Patient also with GERD currently on 40 mg daily as needed of omeprazole. Recently his insurance wasnot covering his prescription and patient was using 20 mg of omeprazole and reports symptoms not controlled. He also has underlining allergies for which he uses Flonase, Singulair and azelastine nasal spray. He reports fullness of the right ear for which she was recently seen by an urgent care and prescribed steroids but never took it due to not understanding the instructions clearly. Concerned about feeling as though he is underwater all the time. He did undergo nose surgery which she thinks did help some. We will discuss getting his Prevnar at a different visit. Problem List Patient Active Problem List Diagnosis Mixed hyperlipidemia Traumatic brain injury (CMS/HCC) Nonalcoholic steatohepatitis Gallbladder polyp Fracture of spinous process of cervical vertebra (CMS/HCC) Essential hypertension, benign Deviated nasal septum Allergic rhinitis Arthrogryposis Type 2 diabetes mellitus with hyperglycemia, without long-term current use of insulin (CMS/HCC) Gastroesophageal reflux disease without esophagitis Nausea and vomiting, unspecified vomiting type Change in bowel function Epigastric burning sensation KARRIE (obstructive sleep apnea) History of gastroschisis Hypertrophy of nasal turbinates S/P exploratory laparotomy S/P small bowel resection Past Medical History: Diagnosis Date Allergy Arthrogryposis Diabetes mellitus (CMS/HCC) Gastroschisis Hyperlipidemia Hypertension Obstructive sleep apnea Past Surgical History: Procedure Laterality Date APPENDECTOMY as a baby along with gastroschisis COLONOSCOPY N/A 08/26/2021 COLONOSCOPY WITH POLYPECTOMY performed by Bob Oneal MD at [facility] OR SEPTOPLASTY SMALL INTESTINE SURGERY Family [...] Outpatient Medications Marked as Taking for the 11/24/22 encounter (Office Visit) with Pankaj Rosenberg MD Medication Sig Dispense Refill Alcohol Swabs (ALCOHOL WIPES) 70 % Pads USE 1 SWAB TO CLEAN SKIN TWICE DAILY BEFORE TESTING amLODIPine (NORVASC) 10 MG tablet Take 1 tablet (10 mg total) by mouth daily. 90 tablet 1 azelastine (ASTELIN) 0.1 % nasal spray USE 1 SPRAY IN EACH NOSTRIL TWICE DAILY DIRECTED 90 mL 1 azithromycin (ZITHROMAX Z-YARON) 250 MG tablet Take 2 tablets by mouth on day one then 1 daily for four days. 6 tablet 0 Blood Glucose Monitoring Suppl ([employer] VERIO REFLECT) w/Device Kit 1 Units by Does not apply route 2 (two) times daily. buPROPion (WELLBUTRIN) 75 MG tablet Take 0.5 tablets (37.5 mg total) by mouth 2 (two) times daily. 180 tablet 1 CPAP DEVICE, DME, Use daily when sleeping or taking a nap. 1 Device 0 fenofibrate 160 MG tablet Take 1 tablet (160 mg total) by mouth daily. 90 tablet 1 Lancets ([employer]UCH DELICA PLUS [id number]) [facility] USE 1 LANCET TO PRICK FINGER TWICE DAILY BEFORE TESTING lisinopril (PRINIVIL) 10 MG tablet Take 1 tablet (10 mg total) by mouth daily. 90 tablet 1 methylPREDNISolone, YARON, (MEDROL DOSEPAK) 4 MG tablet 6 TABLETS ON DAY ONE, 5 TABLETS DAY TWO, 4 TABLETS DAY THREE, 3 TABLETS DAY FOUR, 2 TABLETS DAY FIVE, AND 1 TABLET DAY SIX 1 each 0 montelukast (SINGULAIR) 10 MG tablet Take 1 tablet (10 mg total) by mouth nightly at bedtime. 30 tablet 6 mupirocin (BACTROBAN) 2 % ointment Apply topically 2 (two) times daily. Use on the scalp on the rash. 22 g 3 omeprazole (PRILOSEC) 40 MG capsule Take 1 capsule (40 mg total) by mouth daily as needed. 90 capsule 1 pravastatin (PRAVACHOL) 40 MG tablet Take 1 tablet (40 mg total) by mouth nightly at bedtime. 90 tablet 1 SITagliptin (JANUVIA) 25 mg Tab Take 1 tablet (25 mg total) by mouth daily. 90 tablet 1 TRUEplus Lancets 33G [facility] Allergies: Review of patient's allergies indicates: No Known Allergies Review of Systems Constitutional: Negative for chills, diaphoresis, fever, malaise/fatigue and weight loss. HENT: Negative. Eyes: Negative. Respiratory: Negative. Cardiovascular: Negative for chest pain, palpitations, orthopnea, claudication, leg swelling and PND. Gastrointestinal: Negative. Genitourinary: Negative. Musculoskeletal: Negative. Skin: Positive for rash (on scalp). Neurological: Negative. Psychiatric/Behavioral: Positive for depression. Negative for hallucinations, memory loss, substance abuse and suicidal ideas. The patient is not nervous/anxious and does not have insomnia. Objective: Filed Vitals: 11/24/22 1610 BP: 139/88 Pulse: (!) 116 Resp: 18 Temp: 97.3 ??F (36.3 ??C) TempSrc: Temporal SpO2: 97% Weight: 119.3 kg (263 lb) Height: 5' 11 (1.803 m) Body mass index is 36.68 kg/m??. General alert, cooperative, no distress HEENT [...] cyanosis, 2+ pedal pulses, no edema Skin Scalp with maculopapular rash Neurologic No focal deficits, motor strength is grossly normal and symmetric Psych Normal mood and affect MSK No synovitis, no bony tenderness, no joint effusions Lymph No cervical or supraclavicular adenopathy Assessment and Plan: Encounter Diagnose(s) ICD-10-CM ICD-9-CM SNOMED CT(R) 1. Low testosterone in male R79.89 790.99 TESTOSTERONE LEVEL BELOW REFERENCE RANGE Ambulatory referral to Endocrinology ([facility]) 2. Essential hypertension, benign I10 401.1 BENIGN ESSENTIAL HYPERTENSION amLODIPine (NORVASC) 10 MG tablet lisinopril (PRINIVIL) 10 MG tablet 3. Hypertension associated with type 2 diabetes mellitus ([facility]) E11.59 250.80 HYPERTENSIVE DISORDER amLODIPine (NORVASC) 10 MG tablet I15.2 401.9 lisinopril (PRINIVIL) 10 MG tablet 4. Gastroesophageal reflux disease without esophagitis K21.9 530.81 GASTROESOPHAGEAL REFLUX DISEASEWITHOUT ESOPHAGITIS omeprazole (PRILOSEC) 40 MG capsule 5. Environmental allergies Z91.09 V15.09 ENVIRONMENTAL ALLERGY montelukast (SINGULAIR) 10 MG tablet 6. Allergic rhinitis, unspecified seasonality, unspecified trigger J30.9 477.9 ALLERGIC RHINITIS montelukast (SINGULAIR) 10 MG tablet azelastine (ASTELIN) 0.1 % nasal spray 7. Mixed hyperlipidemia E78.2 272.2 MIXED HYPERLIPIDEMIA pravastatin (PRAVACHOL) 40 MG tablet 8. Hyperlipidemia due to type 2 diabetes mellitus ([facility]) E11.69 250.80 HYPERLIPIDEMIA DUE TO TYPE 2 DIABETES MELLITUS pravastatin (PRAVACHOL) 40 MG tablet E78.5 272.4 fenofibrate 160 MG tablet 9. Type 2 diabetes mellitus with hyperglycemia, without long-term current use of insulin ([facility]) E11.65 250.00 TYPE 2 DIABETES MELLITUS SITagliptin (JANUVIA) 25 mg Tab 790.29 10. Recurrent major depressive disorder, remission status unspecified ([facility]) F33.9 296.30 RECURRENT MAJOR DEPRESSION buPROPion (WELLBUTRIN) 75 MG tablet 11. Dermatitis L30.9 692.9 INFLAMMATORY DERMATOSIS mupirocin (BACTROBAN) 2 % ointment 12. Acute otitis media, unspecified otitis media type H66.90 382.9 ACUTE OTITIS MEDIA methylPREDNISolone, YARON, (MEDROL DOSEPAK) 4 MG tablet azithromycin (ZITHROMAX Z-YARON) 250 MG tablet 1. Low testosterone in male - Ambulatory referral to Endocrinology ([facility]) 2. Essential hypertension, benign - controlled - Patient currently controlled on current treatment for hypertension. Will continue. Continued to discuss weight loss, adequate cardiovascular fitness. DASH diet was discussed as well as decrease in sodium intake. BP goal of < 140/90 expressed. - Lifestyle modification including dietary changes to include less saturated fats, lean meat, more vegetables and exercise at least 30 min every day. - continue amLODIPine (NORVASC) 10 MG tablet; Take 1 tablet (10 mg total) by mouth daily. Dispense:90 tablet; Refill: 1 - continue lisinopril (PRINIVIL) 10 MG tablet; Take 1 tablet (10 mg total) by mouth daily. Dispense: 90 tablet; Refill: 1 3. Hypertension associated with type 2 diabetes mellitus (CMS/HCC) - controlled - Patient currently controlled on current treatment for hypertension. Will continue. Continued to discuss weight loss, adequate cardiovascular fitness. DASH diet was discussed as well as decrease in sodium intake. BP goal of < 140/90 expressed. - continue amLODIPine (NORVASC) 10 MG tablet; Take 1 tablet (10 mg total) by mouth daily. Dispense:90 tablet; Refill: 1 - continue lisinopril (PRINIVIL) 10 MG tablet; Take 1 tablet (10 mg total) by mouth daily. Dispense: 90 tablet; Refill: 1 4. Gastroesophageal reflux disease without esophagitis - not controlled on OTC dose - change to omeprazole (PRILOSEC) 40 MG capsule; Take 1 capsule (40 mg total) by mouth daily as needed. Dispense: 90 capsule; Refill: 1 5. Environmental allergies - continue montelukast (SINGULAIR) 10 MG tablet; Take 1 tablet (10 mg total) by mouth nightly at bedtime. Dispense: 30 tablet; Refill: 6 6. Allergic rhinitis, unspecified seasonality, unspecified trigger - stable - continue montelukast (SINGULAIR) 10 MG tablet; Take 1 tablet (10 mg total) by mouth nightly at bedtime. Dispense: 30 tablet; Refill: 6 - continue azelastine (ASTELIN) 0.1 % nasal spray; USE 1 SPRAY IN EACH NOSTRIL TWICE DAILY DIRECTED Dispense: 90 mL; Refill: 1 7. Mixed hyperlipidemia - pravastatin (PRAVACHOL) 40 MG tablet; Take 1 tablet (40 mg total) by mouth nightly at bedtime. Dispense: 90 tablet; Refill: 1 8. Hyperlipidemia due to type 2 diabetes mellitus (CMS/HCC) - not controlled - continue pravastatin (PRAVACHOL) 40 MG tablet; Take 1 tablet (40 mg total) by mouth nightly at bedtime. Dispense: 90 tablet; Refill: 1 -add fenofibrate 160 MG tablet; Take 1 tablet (160 mg total) by mouth daily. Dispense: 90 tablet; Refill: 1 9. Type 2 diabetes mellitus with hyperglycemia, without long-term current use of insulin ([facility]) - controlled - Lifestyle modification including dietary changes to include less saturated fats, lean meat, more vegetables and exercise at least 30 min every day. - continue SITagliptin (JANUVIA) 25 mg Tab; Take 1 tablet (25 mg total) by mouth daily. Dispense: 90 tablet; Refill: 1 10. Recurrent major depressive disorder, remission status unspecified ([facility]) - new diagnosis and not controlled - no red flag signs -start buPROPion (WELLBUTRIN) 75 MG tablet; Take 0.5 tablets (37.5 mg total) by mouth 2 (two) timesdaily. Dispense: 180 tablet; Refill: 1 11. Dermatitis - start mupirocin (BACTROBAN) 2 % ointment; Apply topically 2 (two) times daily. Use on the scalp on the rash. Dispense: 22 g; Refill: 3 - follow up in 4 weeks 12. Acute otitis media, unspecified otitis media type - methylPREDNISolone, YARON, (MEDROL DOSEPAK) 4 MG tablet; 6 TABLETS ON DAY ONE, 5 TABLETS DAY TWO, 4TABLETS DAY THREE, 3 TABLETS DAY FOUR, 2 TABLETS DAY FIVE, AND 1 TABLET DAY SIX Dispense: 1 each; Refill: 0 - azithromycin (ZITHROMAX Z-YARON) 250 MG tablet; Take 2 tablets by mouth on day one then 1 daily forfour days. Dispense: 6 tablet; Refill: 0 Counseling given: Yes Tobacco comments: counseled by Dr Rosenberg I personally spent a total of 40 minutes on the day of the encounter. This includes [id number] and jpy-cyzj-[id number]-face time I provided on the day of [...] was at least in part performed using [employer] and there may be some inherent flaws in this rip machine operator due to the nature of this program. Pankaj Rosenberg MD Internal Medicine [facility]. documented in this encounter Plan of Treatment Upcoming Encounters Date Type Department Care Team (Late st Contact Info) Description 05/15/2024 3:30 PM OPERATIONS VICE PRESIDENT Appointment [facility] [place] [address] [place] [address] [place] [address] 05/25/2024 12:45 PM OPERATIONS VICE PRESIDENT Office Visit [facility] Physical Therapy [address] [place] [address] [place] [address] [place] [address] Maya Magaña, [place] [address] 05/30/2024 3:40 PM OPERATIONS VICE PRESIDENT Office Visit [facility] Medical Group Multispecialty Care - [place] [address] [place] [address] Pankaj Rosenberg MD Counts include 234 beds at the [facility] [address] 06/20/2024 3:40 PM OPERATIONS VICE PRESIDENT Telemedicine [facility] Medical [facility] Multispecialty Care - [place] [address] [place] [address] Pankaj Rosenberg MD Counts include 234 beds at the [facility] [address] 06/21/2024 1:00 PM OPERATIONS VICE PRESIDENT Office Visit [facility] Medical Group Orthopedic & Sports Medicine - [address] [place] [address] Jose Ratliff MD [address] [address] [place] [address] 03/27/2025 1:00 PM OPERATIONS VICE PRESIDENT Office Visit [facility] Medical Group Multispecialty Care - [facility] [address] [place] [address] Bob Oneal MD [address] [facility] [address] [place] [address] Scheduled Referrals Name Type Priority Associated Diagnoses Orde r Schedule Ambulatory referral to Endocrinology ([facility]) Referral Routine Low testosterone in male Ordered: 11/24/2022 documented as of this encounter Visit Diagnoses Diagnosis Low testosterone in male- Primary Essential hypertension, benign Hypertension associated with type 2 diabetes mellitus ([facility] [place] [facility]) Gastroesophageal reflux disease without esophagitis Esophageal reflux Environmental allergies Allergic rhinitis, cause unspecified Allergic rhinitis, unspecified seasonality, unspecified trigger Mixed hyperlipidemia Hyperlipidemia due to type 2 diabetes mellitus ([facility] [place] [facility]) Type 2 diabetes mellitus with hyperglycemia, without long-term current use of insulin ([facility] [place] [facility]) Recurrent major depressive disorder, remission status unspecified ([facility]) Dermatitis Contact dermatitis and other eczema, due to unspecified cause Acute otitis media, unspecified otitis media type documented in this encounter Additional Health Concerns Assessment Noted Time PHQ-9 Depression Total Score: 0 08/01/19 22 2:12 PM CDT documented as of this encounter Care Teams Bindery Technician Relationship Specialty Start Date End Date Pankaj Rosenberg MD [address] [address] PCP - General INTERNAL MEDICINE 06/15/21 documented as of this encounter
--- OUTSIDE RECORDS SUMMARY | 2024-05-13 10:47 | XMS_ITS | Encounter Summary ---
Author Organization [facility] Address [address] [place] [address]. [place], [place] [id number] [place] [address] Care Team Providers Care Portfolio Management Marketing Name Role Phone Pankaj Rosenberg MD Primary Care Provider [phone] Reason for Visit * Reason Onset Date Comments Insurance Coverage 12/27/2022 Encounter Details Date Type Department Care Team (Late st Contact Info) Description 12/27/[address] [facility] Medical [facility] Multispecialty Care - [place] [address] [address] [place] [address] Pankaj Rosenberg MD [address] [place] [address] [address] [place], [place] [phone] Insurance Coverage Social History Tobacco Use Types Packs/Day Years [...] on file Legal Sex Male 2:58 PM BUILDING MECHANIC Gender Identity Male 07/13/2021 5:19 AM BUILDING MECHANIC Sexual Orientation Straight 07/13/2021 5: 19 AM BUILDING MECHANIC documented as of this encounter Progress Notes * Doc Ribera - 12/27/2022 3:03 PM CDT Patient's mother states that he will have a new PCP in 2022 due to the fact that we are not innetwork with patient's current insurance Community . She asked that refills be accepted by Dr. Rosenberg until his initial visit with new PCP. She also expressed how he will miss Dr. Rosenberg and very much enjoyed her being his PCP. documented in this encounter Plan of Treatment Upcoming Encounters Date Type Department Care Team (Late st Contact Info) Description 05/15/2024 3:30 PM BUILDING MECHANIC Appointment [facility] [place] [address] Pankaj Rosenberg MD [address] [place] [id number] 05/25/2024 12:45 PM BUILDING MECHANIC Office Visit Health system Physical Therapy [address] [place] [address] Pankaj Rosenberg MD [address] [place] [phone] Maya Magaña, [place] [address] 05/30/2024 3:40 PM BUILDING MECHANIC [facility] [place] [address] [address] [place] [address] Pankaj Rosenberg MD [facility] [address] [address] 06/20/2024 3:40 PM BUILDING MECHANIC [facility] [place] [address] [address] [place] [address] Pankaj Rosenberg MD [facility] [address] [address] 06/21/2024 1:00 PM BUILDING MECHANIC Office Visit [facility] Orthopedic & [facility] - [place] [address] [place] [address] Jose Ratliff MD [address] [address] [place] [address] 03/27/2025 1:00 PM BUILDING MECHANIC Office Visit [facility] Multispecialty Care - [facility] [address] [place] [id number] Bob Oneal MD [address] [facility] [address] [place] [address] documented as of this encounter Visit Diagnoses Not on filedocumented in this encounter Additional Health Concerns Assessment Noted Time PHQ-9 Depression Total Score: 0 08/01/19 22 2:12 PM CDT documented as of this encounter Care Teams Portfolio Management Marketing Relationship Specialty Start Date End Date Pankaj Rosenberg MD [address] [facility] [address] [place] [address] PCP - General INTERNAL MEDICINE 06/15/21 documented as of this encounter
--- OUTSIDE RECORDS SUMMARY | 2024-05-13 10:47 | XMS_ITS | Encounter Summary ---
Author Organization [facility] Address [address] [place] [address]. [place], [place] [address] [place] [address] Care Team Providers Care Giver Name Role Phone Pankaj Rosenberg MD Primary Care Provider [phone] Reason for Referral * Consultation (Urgent) - Closed Specialty Diagnoses / Procedures Referred By Contac t Referred To Contact UROLOGY Diagnoses Low testosterone in male Procedures OFFICE/OUTPATIENT NEW LOW MDM 30-44 MINUTES OFFICE/OUTPT VISIT,NEW,LEVL IV OFFICE/OUTPT VISIT,NEW,LEVL V OFFICE/OUTPT VISIT,EST,LEVL III OFFICE/OUTPT VISIT,EST,LEVL IV OFFICE/OUTPT VISIT,EST,LEVL V Pankaj Rosenberg MD [address] [facility] [address] [place] [address] Phone: tel: fax: Sally Espitia PA 3 [facility] [address] [place] [address] Phone: tel: fax: Referral ID Status Reason Start Date Expiration Date V isits Requested Visits Authorized [id number] Closed Specialty Services 03/09/2023 03/09/2024 99 99 Scheduling Instructions New insurance- needs a new insurance. Reason for Visit * Reason Comments Follow Up Medication pt states he had problems with insurance and missed first follow up. Pt also mentions blood work to see if a new medication worked. Hyperlipidemia Hypertension Obstructive Sleep Apnea Depression Encounter Details Date Type Department Care Team (Latest Contact Info) Description 03/09/2023 1:40 PM CDT Office Visit [facility] Medical Group Multispecialty Care - [address] [place] [address] Pankaj Rosenberg MD 1188 [facility] [address] [place] [address] Follow Up (Medication pt states he had problems with insurance and missed first follow up. Pt also mentions blood work to see if a new medication worked. ); Hyperlipidemia; Hypertension; Obstructive Sleep Apnea ; Depression Social History Tobacco Use Types Packs/Day [...] on file Legal Sex Male 2:58 PM AOC OPERATIONS INTELLIGENCE OFFICER Gender Identity Male 07/13/2021 5:19 AM AOC OPERATIONS INTELLIGENCE OFFICER Sexual Orientation Straight 07/13/2021 5: 19 AM AOC OPERATIONS INTELLIGENCE OFFICER documented as of this encounter Last Filed Vital Signs Vital Sign Reading Time Taken Comments Blood Pressure 113/74 03/09/2023 1:57 PM CDT Pulse 93 03/09/2023 1:57 PM CDT Temperature 36.7 ??C (98 ??F) 03/09/2023 1:57 PM CDT Respiratory Rate 18 03/09/2023 1:57 PM CDT Oxygen Saturation 97% 03/09/2023 1:57 PM CDT Inhaled Oxygen Concentration - - Weight 118.8 kg (261 lb 12.8 oz) 03/09/2023 1:57 PM CDT Height 180.3 cm (5' 11 ) 03/09/2023 1:57 PM CDT Body Mass Index 36.51 03/09/2023 1:57 PM CDT documented in this encounter Patient Instructions * Patient Instructions* Pankaj Rosenberg MD - 03/09/2023 1:40 PM CDT Follow up April 2023 for your depression medication. documented in this encounter Progress Notes * Pankaj Rosenberg MD - 03/09/2023 1:40 PM CDTSummary: Follow up notes Images from the original note were not included. Internal Medicine Outpatient Progress Note CC: Follow Up (Medication pt states he had problems with insurance and missed first follow up. Pt also mentions blood work to see if a new medication worked. ), Hyperlipidemia, Hypertension, Obstructive Sleep Apnea , and Depression HPI: Chuck Barlow is a 27-year-old male who presents for follow-up for chronic medical issues including diabetes with hypertriglyceridemia with hypercholesterolemia, low testosterone, sleep apnea and allergies. Currently patient taking all medications as directed with no adverse side effects. For his hypertension, patient currently on amlodipine 10 mg daily with lisinopril 10 mg daily and reports compliance with medications. No side effects. No chest pain or shortness of breath. No palpitations. Does not see cardiology. Denies any ankle swelling. Denies any dry cough. Blood pressures athome according to patient are much higher. His blood pressures at today's visit well controlled. Overall, patient doing well. Patient also with sleep apnea and currently compliant with using his CPAP. He follows with pulmonary regularly. Denies any chronic fatigue. Overall, patient is benefiting from use of machine. He is losing weight appropriately. He is also here for follow-up for his hypertriglyceridemia with hypercholesterolemia and currently compliant with taking his Zetia. He is also on pravastatin 40 mg nightly. Compliant. Denies any myalgias. For his diabetes, he is currently tolerating 25 mg of Januvia. Compliant. No hypoglycemic symptoms.Denies any polyuria or polydipsia. Overall patient doing well. For his depression, patient reports he is not adequately controlled. His screening testing done at today's visit shows improvement in his scores. He is currently on 37.5 mg twice daily of Wellbutrin and dose to be adjusted at today's visit. PHQ-9: 11/24/2022 4:54 PM 03/09/2023 2:22 PM PHQ2/PHQ 9 DEPRESSION SCREEN QUESTIONAIRE Little interest or pleasure in doing things Several days Not at all Feeling down, depressed, or hopeless Several days Several days Patient Health Questionnaire-2 Score 2 1 Trouble falling or staying asleep, or sleeping too much Not at all Feeling tired or having little energy Several days Poor appetite or overeating Not at all Feeling bad about yourself - or that you are a failure or have let yourself or your family down Notat all Trouble concentrating on things, such as reading the newspaper or watching television Not at all Moving or speaking so slowly that other people could have noticed? Or the opposite - being so fidgety or restless that you have been moving around a lot more than usual. Not at all Thoughts that you would be better off or hurting yourself in some way Not at all Patient Health Questionnaire-9 Score 2 How difficult have these problems made it for you to do your work, take care of things at home, or get along with other people? Somewhat difficult Somewhat difficult KANCHAN-7 (Generalized Anxiety Disorder) Screening 11/24/2022 4:54 PM 03/09/2023 2:22 PM KANCHAN-7 Feeling nervous, anxious, or on edge 0 1 Not being able to stop or control worrying 0 0 Worrying too much about different things 0 0 Trouble relaxing 0 0 Being so restless that it is hard to sit still 0 0 Becoming easily annoyed or irritable 1 1 Feeling afraid as if something awful might happen 0 0 KANCHAN-7 Total Score 1 2 How difficult have these problems made it for you to do your work, take care of things at home, or get along with other people? Somewhat difficult Not difficult at all Problem List Patient Active Problem List Diagnosis Mixed hyperlipidemia Traumatic brain injury (CMS/HCC) Nonalcoholic steatohepatitis Gallbladder polyp Fracture of spinous process of cervical vertebra (HHS/HCC) ([facility]/HCC) Essential hypertension, benign Deviated nasal septum Allergic rhinitis Arthrogryposis Type 2 diabetes mellitus with hyperglycemia, without long-term current use of insulin ([facility]/HCC) (CMS/HCC) Gastroesophageal reflux disease without esophagitis Nausea and vomiting, unspecified vomiting type Change in bowel function Epigastric burning sensation KARRIE (obstructive sleep apnea) History of gastroschisis Hypertrophy of nasal turbinates S/P exploratory laparotomy S/P small bowel resection Past Medical History: Diagnosis Date Allergy Arthrogryposis Diabetes mellitus (HHS/HCC) (CMS/HCC) Gastroschisis (HHS/HCC) Hyperlipidemia Hypertension Obstructive sleep apnea Past Surgical History: Procedure Laterality Date APPENDECTOMY as a baby along with gastroschisis COLONOSCOPY N/A 08/26/2021 COLONOSCOPY WITH POLYPECTOMY performed by Bob Oneal MD at [facility] OR SEPTOPLASTY SMALL INTESTINE SURGERY Family History [...] Outpatient Medications Marked as Taking for the 03/09/23 encounter (Office Visit) with Pankaj Rosenberg MD Medication Sig Dispense Refill amLODIPine (NORVASC) 10 MG tablet Take 1 tablet (10 mg total) by mouth daily. 90 tablet 1 azelastine (ASTELIN) 0.1 % nasal spray USE 1 SPRAY IN EACH NOSTRIL TWICE DAILY DIRECTED 90 mL 1 Blood Glucose Monitoring Suppl ([employer] VERIO REFLECT) w/Device Kit 1 Units by [...] by mouth daily. 90 tablet 1 Lancets ([employer]UCH DELICA PLUS [id number]) [facility] USE 1 LANCET [...] daily. 90 tablet 1 TRUEplus Lancets 33G Misc Allergies: Review of patient's allergies indicates: Not on File Review of Systems Constitutional: Negative for chills, diaphoresis, fever, malaise/fatigue and weight loss. HENT: Negative. Eyes: Negative. Respiratory: Negative. Cardiovascular: Negative for chest pain, palpitations, orthopnea, claudication, leg swelling and PND. Gastrointestinal: Negative. Genitourinary: Negative. Musculoskeletal: Negative. Neurological: Negative. Psychiatric/Behavioral: Positive for depression. Negative for hallucinations, memory loss, substance abuse and suicidal ideas. The patient is not nervous/anxious and does not have insomnia. Objective: Filed Vitals: 03/09/23 1357 BP: 113/74 Pulse: 93 Resp: 18 Temp: 98 ??F (36.7 ??C) TempSrc: Temporal SpO2: 97% Weight: 118.8 kg (261 lb 12.8 oz) Height: 1.803 m (5' 11 ) Body mass index is 36.51 kg/m??. General alert, cooperative, no distress HEENT [...] strength is grossly normal and symmetric Psych Depressed MSK No synovitis, no bony tenderness, no joint effusions Lymph No cervical or supraclavicular adenopathy Assessment and Plan: Encounter Diagnose(s) ICD-10-CM SNOMED CT(R) 1. Type 2 diabetes mellitus with hyperglycemia, without long-term current use of insulin ([facility]/HCC) ([facility]) E11.65 TYPE 2 DIABETES MELLITUS LIPID PANEL COMPREHENSIVE METABOLIC PANEL CBC W/DIFF AUTOMATED SITagliptin (JANUVIA) 25 mg Tab HEMOGLOBIN, GLYCOSYLATED 2. Recurrent major depressive disorder, remission status unspecified ([facility]) F33.9 RECURRENT MAJOR DEPRESSION buPROPion (WELLBUTRIN) 75 MG tablet 3. Low testosterone in male R79.89 TESTOSTERONE LEVEL BELOW REFERENCE RANGE Ambulatory referral to Urology (OTHER) 4. Essential hypertension, benign I10 BENIGN ESSENTIAL HYPERTENSION lisinopril (PRINIVIL) 10 MG tablet amLODIPine (NORVASC) 10 MG tablet 5. Hypertension associated with type 2 diabetes mellitus ([facility]/HCC) ([facility]) E11.59 HYPERTENSIVE DISORDER lisinopril (PRINIVIL) 10 MG tablet I15.2 amLODIPine (NORVASC) 10 MG tablet 6. Mixed hyperlipidemia E78.2 MIXED HYPERLIPIDEMIA ezetimibe (ZETIA) 10 MG tablet pravastatin (PRAVACHOL) 40 MG tablet 7. Environmental allergies Z91.09 ENVIRONMENTAL ALLERGY montelukast (SINGULAIR) 10 MG tablet 8. Allergic rhinitis, unspecified seasonality, unspecified trigger J30.9 ALLERGIC RHINITIS montelukast (SINGULAIR) 10 MG tablet 9. Need for prophylactic vaccination against Streptococcus pneumoniae (pneumococcus) Z23 REQUIRES VACCINATION AGAINST STREPTOCOCCUS PNEUMONIAE [87922] Prevnar 13 (Pneumococcal) 10. Hyperlipidemia due to type 2 diabetes mellitus ([facility]/HCC) ([facility]) E11.69 HYPERLIPIDEMIA DUE TOTYPE 2 DIABETES MELLITUS pravastatin (PRAVACHOL) 40 MG tablet E78.5 1. Recurrent major depressive disorder, remission status unspecified ([facility]) -Currently patient's symptoms improving though not optimally controlled and patient would like medication dose adjusted at today's visit. Close follow-up in 8 weeks. -I personally reviewed PHQ-9 and KANCHAN-7 scores with [...] close follow up. Comorbidities including depression, anxiety currentlybeing managed. Active nonpharmacological therapies including supervised and graded exercise programas well as cognitive behavioral interventions discussed as well. Based on patient scores today, I have discussed with patient the plan as outlined below. -Increase to buPROPion (WELLBUTRIN) 75 MG tablet; Take 1 tablet (75 mg total) by mouth 2 (two) times daily. Dispense: 180 tablet; Refill: 1 2. Type 2 diabetes mellitus with hyperglycemia, without long-term current use of insulin (HHS/HCC) ([facility]) -Stable and controlled - LIPID PANEL; Future - COMPREHENSIVE METABOLIC PANEL; Future - CBC W/DIFF AUTOMATED; Future -Continue SITagliptin (JANUVIA) 25 mg Tab; Take 1 tablet (25 mg total) by mouth daily. Dispense: 90tablet; Refill: 1 - HEMOGLOBIN, GLYCOSYLATED; Future 3. Low testosterone in male - Ambulatory referral to Urology (OTHER) -Recent new change in insurance. Needing a new referral. 4. Essential hypertension, benign -Controlled - Patient currently controlled on current treatment for hypertension. Will continue. Continued to discuss weight loss, adequate cardiovascular fitness. DASH diet was discussed as well as decrease in sodium intake. BP goal of < 140/90 expressed. - Lifestyle modification including dietary changes to include less saturated fats, lean meat, more vegetables and exercise at least 30 min every day. -Continue lisinopril (PRINIVIL) 10 MG tablet; Take 1 tablet (10 mg total) by mouth daily. Dispense:90 tablet; Refill: 1 -Continue amLODIPine (NORVASC) 10 MG tablet; Take 1 tablet (10 mg total) by mouth daily. Dispense: 90 tablet; Refill: 1 5. Hypertension associated with type 2 diabetes mellitus (HHS/HCC) ([facility]) -Stable and controlled. Refill sent. - lisinopril (PRINIVIL) 10 MG tablet; Take 1 tablet (10 mg total) by mouth daily. Dispense: 90 tablet; Refill: 1 - amLODIPine (NORVASC) 10 MG tablet; Take 1 tablet (10 mg total) by mouth daily. Dispense: 90 tablet; Refill: 1 6. Mixed hyperlipidemia -Tolerating medications well. -Continue ezetimibe (ZETIA) 10 MG tablet; Take 1 tablet (10 mg total) by mouth daily. Dispense: 90 tablet; Refill: 1 -Continue with pravastatin 40 mg nightly 7. Environmental allergies -Controlled -Continue montelukast (SINGULAIR) 10 MG tablet; Take 1 tablet (10 mg total) by mouth nightly at bedtime. Dispense: 30 tablet; Refill: 6 8.Need for prophylactic vaccination against Streptococcus pneumoniae (pneumococcus) - [41093] Prevnar 13 (Pneumococcal) Counseling given: Yes Tobacco comments: counseled by Dr Rosenberg I personally spent a total of 40 minutes on the day of the encounter. This includes [id number]-phrg and [id number]-ri-face time I provided on the day of [...] was at least in part performed using Victoria Plumb and there may be some inherent flaws in this management services technician due to the nature of this program. Pankaj Rosenberg MD Internal Medicine [facility]. documented in this encounter Plan of Treatment Upcoming Encounters Date Type Department Care Team (Late st Contact Info) Description 05/15/2024 3:30 PM AOC OPERATIONS INTELLIGENCE [place] [address] Pankaj Rosenberg MD [address] [place] [address] 05/25/2024 12:45 PM AOC OPERATIONS INTELLIGENCE OFFICER Office Visit [facility] Physical Therapy [address] [place] [address] Pankaj Rosenberg MD [address] [address] Maya Magaña, [place] [address] 05/30/2024 3:40 PM AOC OPERATIONS INTELLIGENCE OFFICER Office Visit [facility] Mult[facility]pec[facility]ty [facility] - [address] [place] [address] Pankaj Rosenberg MD [address] [address] 06/20/2024 3:40 PM AOC OPERATIONS INTELLIGENCE OFFICER [facility] [place] [address] [address] [place] [address] Pankaj Rosenberg MD [address] [address] 06/21/2024 1:00 PM AOC OPERATIONS INTELLIGENCE OFFICER Office Visit [facility] Orthopedic & Sports Medicine - [place] [address] [place] [address] Jose Ratliff MD [id number] [place] [address] 03/27/2025 1:00 PM AOC OPERATIONS INTELLIGENCE OFFICER Office Visit [facility] - [address], [address] [place] [address] Bob Oneal MD 3 [facility] [address] [place] [address] Scheduled Referrals Name Type Priority Associated Diagnoses Orde r Schedule Ambulatory referral to Urology (OTHER) Referral Routine Low testosterone in male Ordered: 03/09/2023 documented as of this encounter Visit Diagnoses Diagnosis Type 2 diabetes mellitus with hyperglycemia, without long-term current use of insulin ([facility])- Primary Recurrent major depressive disorder, remission status unspecified ([facility]) Low testosterone in male Essential hypertension, benign Hypertension associated with type 2 diabetes mellitus ([facility] HHS/[facility]) Mixed hyperlipidemia Environmental allergies Allergic rhinitis, cause unspecified Allergic rhinitis, unspecified seasonality, unspecified trigger Need for prophylactic vaccination against Streptococcus pneumoniae (pneumococcus) Need for prophylactic vaccination against streptococcus pneumoniae (pneumococcus) Hyperlipidemia due to type 2 diabetes mellitus ([facility] HHS/[facility]) documented in this encounter Additional Health Concerns Assessment Noted Time PHQ-9 Depression Total Score: 2 03/09/20 23 2:22 PM CDT documented as of this encounter Care Teams Giver Relationship Specialty Start Date End Date Pankaj Rosenberg MD [address] [facility] [address] [place] [address] PCP - General INTERNAL MEDICINE 06/15/21 documented as of this encounter
--- OUTSIDE RECORDS SUMMARY | 2024-05-13 10:47 | XMS_ITS | Encounter Summary ---
Author Organization [facility] Address [address] [place] [address]. [place], [place] [address] [place] [address] Care Team Providers Care Harvest Contractor Name Role Phone Pankaj Rosenberg MD Primary Care Provider [phone] Reason for Visit * Reason Onset Date Comments Other 07/27/2022 Encounter Details Date Type Department Care Team (Late st Contact Info) Description 07/27/2022 Telephone [facility] Medical Group Multispecialty Care - [place] [address] [address] [place] [address] Pankaj Rosenberg MD [address] [place] [address] [address] [place] [address] Other Social History Tobacco Use [...] on file Legal Sex Male 2:58 PM CASE MANAGERS Gender Identity Male 07/13/2021 5:19 AM CASE MANAGERS Sexual Orientation Straight 07/13/2021 5: 19 AM CASE MANAGERS documented as of this encounter Progress Notes * Doc Ribera - 07/27/2022 2:18 PM CDT Patient called to cancel his appt for 07/28/22 @ 7:00 a.m. He is currently in [facility] for a partial blockage of his small bowel. He will call once d/c from Hospital to schedule TCM appt. documented in this encounter Plan of Treatment Upcoming Encounters Date Type Department Care Team (Late st Contact Info) Description 05/15/2024 3:30 PM CASE MANAGERS Appointment [place] [address] Pankaj Rosenberg MD [address] [place] [address] 05/25/2024 12:45 PM CASE MANAGERS Office Visit [facility] Physical Therapy [address] [place] [address] Pankaj Rosenberg MD [address] [place] [address] Maya Magaña, [place] [address] 05/30/2024 3:40 PM CASE MANAGERS [facility] [address] [address] Pankaj Rosenberg MD [address] [place] [address] 06/20/2024 3:40 PM CASE MANAGERS Telemedicine [place] [address] [address] [place] [address] Pankaj Rosenberg MD [facility] [address] [address] 06/21/2024 1:00 PM CASE MANAGERS Office Visit [facility] Orthopedic & Sports Medicine - [place] [address] [place] [address] Jose Ratliff MD [address] [address] [place] [address] 03/27/2025 1:00 PM CASE MANAGERS Office Visit [facility] Multispecialty Care - [facility] 3 [facility] [address] [place] [address] Bob Oneal MD [address] [place] [address] documented as of this encounter Visit Diagnoses Not on filedocumented in this encounter Additional Health Concerns Assessment Noted Time PHQ-9 Depression Total Score: 0 08/01/19 22 2:12 PM CDT documented as of this encounter Care Teams Harvest Contractor Relationship Specialty Start Date End Date Pankaj Rosenberg MD [address] [address] PCP - General INTERNAL MEDICINE 06/15/21 documented as of this encounter
--- OUTSIDE RECORDS SUMMARY | 2024-05-13 10:47 | XMS_ITS | Encounter Summary ---
Author Organization [facility] Address [address] [place] [address]. [place], [place] [address] [place] [address] Care Team Providers Care Fitness Manager Name Role Phone Pankaj Rosenberg MD Primary Care Provider [phone] Encounter Details Date Type Department Care Team (Latest Contact Info) Description 06/15/2022 Travel Social History Tobacco Use Types Packs/Day [...] on file Legal Sex Male 2:58 PM MEDICAL RECORDS ADMINISTRATOR Gender Identity Male 07/13/2021 5:19 AM MEDICAL RECORDS ADMINISTRATOR Sexual Orientation Straight 07/13/2021 5: 19 AM MEDICAL RECORDS ADMINISTRATOR COVID-19 Exposure Response Date Recorded In the last 10 days, have yo u been in contact with someone who was confirmed or suspected to have Coronavirus/COVID-19? No / Unsure 06/15/2022 1:57 PM MEDICAL RECORDS ADMINISTRATOR documented as of this encounter Plan of Treatment Upcoming Encounters Date Type Department Care Team (Late st Contact Info) Description 05/15/2024 3:30 PM MEDICAL RECORDS ADMINISTRATOR Appointment [facility] [place] [address] [place] [address] [place] [address] [place] [address] 05/25/2024 12:45 PM MEDICAL RECORDS ADMINISTRATOR Office Visit [facility] Physical Therapy [facility] [address] [place] [address] Pankaj Rosenberg MD [address] [address] Maya Magaña, [place] [address] 05/30/2024 3:40 PM MEDICAL RECORDS ADMINISTRATOR Office Visit [facility] Multispecialty [facility] [place] [address] [place] [address] [address] [place] [address] Pankaj Rosenberg MD [address] [address] 06/20/2024 3:40 PM MEDICAL RECORDS ADMINISTRATOR [facility]icine [facility] [place] [address] [address] [place] [address] Pankaj Rosenberg MD [address] [address] 06/21/2024 1:00 PM MEDICAL RECORDS ADMINISTRATOR Office Visit [facility] Medical [facility] Orthopedic & Sports Medicine - [place] [address] [place] [address] Jose Ratliff MD [address] [address] [place] [address] 03/27/2025 1:00 PM MEDICAL RECORDS ADMINISTRATOR Office Visit [facility] Multispecialty Care - [facility] 3 [facility] [address] [place] [address] Bob Oneal MD 3 [facility] [address] [place] [address] documented as of this encounter Visit Diagnoses Not on filedocumented in this encounter Additional Health Concerns Assessment Noted Time PHQ-9 Depression Total Score: 0 08/01/19 22 2:12 PM CDT documented as of this encounter Care Teams Fitness Manager Relationship Specialty Start Date End Date Pankaj Rosenberg MD 1188 [facility] [address] [place] [address] PCP - General INTERNAL MEDICINE 06/15/21 documented as of this encounter
--- OUTSIDE RECORDS SUMMARY | 2024-05-13 10:47 | XMS_ITS | Encounter Summary ---
Author Organization [facility] Address [address] [place] [address]. [place], [place] [address] [place] [address] Care Team Providers Care Precision Farming Coordinator Name Role Phone Pankaj Rosenberg MD Primary Care Provider [phone] Encounter Details Date Type Department Care Team (Latest Contact Info) Description 11/24/2022 Travel Social History Tobacco Use Types Packs/Day [...] file Legal Sex Male 2:58 PM DIRECTOR PRIVATE Gender Identity Male 07/13/2021 5:19 AM DIRECTOR PRIVATE Sexual Orientation Straight 07/13/2021 5: 19 AM DIRECTOR PRIVATE documented as of this encounter Plan of Treatment Upcoming Encounters Date Type Department Care Team (Late st Contact Info) Description 05/15/2024 3:30 PM DIRECTOR PRIVATE Appointment [facility] [place] [address] Pankaj Rosenberg MD [address] [address] 05/25/2024 12:45 PM DIRECTOR PRIVATE Office Visit [facility] Physical Therapy [address] [address] Pankaj Rosenberg MD [address] [address] Maya Magaña, [place] [address] 05/30/2024 3:40 PM DIRECTOR PRIVATE Office Visit [facility] Medical [facility] Multispecialty Care - [place] [address] [address] [place] [address] Pankaj Rosenberg MD [address] [address] 06/20/2024 3:40 PM DIRECTOR PRIVATE Telemedicine [facility] - [place] [address] [address] [place] [address] Pankaj Rosenberg MD [address] [address] 06/21/2024 1:00 PM DIRECTOR PRIVATE Office Visit [facility] Medical Group [facility] - [place] [address] [place] [address] Jose Ratliff MD [phone] [place] [address] 03/27/2025 1:00 PM DIRECTOR PRIVATE Office Visit [facility] Medical [facility] Multispecialty Care - [facility] [address] [facility] [place] [phone] Bob Oneal MD 3 [facility] [address] [place] [address] documented as of this encounter Visit Diagnoses Not on filedocumented in this encounter Additional Health Concerns Assessment Noted Time PHQ-9 Depression Total Score: 0 08/01/19 2:12 PM CDT documented as of this encounter Care Teams Precision Farming Coordinator Relationship Specialty Start Date End Date Pankaj Rosenberg MD [address] [address] PCP - General INTERNAL MEDICINE 06/15/21 documented as of this encounter
--- OUTSIDE RECORDS SUMMARY | 2024-05-13 10:47 | XMS_ITS | Encounter Summary ---
Author Organization [facility] - [facility] Address [address] [place] [address]. [place], [place] [address] [place] [address] Care Team Providers Care Anglesmith Helper Name Role Phone Pankaj Rosenberg MD Primary Care Provider [phone] Reason for Visit * Reason Comments Allied Health Visit Lab draw Encounter Details Date Type Department Care Team (Latest Contact Info) Description 09/22/2022 7:30 AM CDT Allied Health/Nurse Visit [facility] Medical Group Multispecialty Care - [place] [address] [address] [place] [address] Pankaj Rosenberg MD [address] [place] [address] [phone] Allied Health Visit (Lab draw) Social History Tobacco Use Types Packs/Day Years [...] on file Legal Sex Male 2:58 PM ELECTRONIC EQUIPMENT REPAIRER Gender Identity Male 07/13/2021 5:19 AM ELECTRONIC EQUIPMENT REPAIRER Sexual Orientation Straight 07/13/2021 5: 19 AM ELECTRONIC EQUIPMENT REPAIRER COVID-19 Exposure Response Date Recorded In the last 10 days, have yo u been in contact with someone who was confirmed or suspected to have Coronavirus/COVID-19? No / Unsure 09/22/2022 7:20 AM CDT documented as of this encounter Progress Notes * Isela Daily MA - 09/22/2022 7:30 AM CDT Lab draw documented in this encounter Plan of Treatment Upcoming Encounters Date Type Department Care Team (Late st Contact Info) Description 05/15/2024 3:30 PM ELECTRONIC EQUIPMENT REPAIRER Appointment [facility] [place] [address] Pankaj Rosenberg MD [address] [place] [address] 05/25/2024 12:45 PM ELECTRONIC EQUIPMENT REPAIRER Office Visit [facility] Physical Therapy [address] [place] [address] Pankaj Rosenberg MD [address] [place] [address] Maya Magaña, [place] [address] 05/30/2024 3:40 PM ELECTRONIC EQUIPMENT REPAIRER Office Visit [facility] - [place] [address] [place] [address] Pankaj Rosenberg MD [address] [place] [address] 06/20/2024 3:40 PM ELECTRONIC EQUIPMENT REPAIRER Telemedicine [facility] - [place] [address] [address] [place] [address] Pankaj Rosenberg MD [address] [place] [address] 06/21/2024 1:00 PM ELECTRONIC EQUIPMENT REPAIRER Office Visit [facility] Orthopedic & Sports Medicine - [place] [address] [place] [address] Jose Ratliff MD [address] [facility] [address] [place] [address] 03/27/2025 1:00 PM ELECTRONIC EQUIPMENT REPAIRER Office Visit [facility] Multispecialty Care - [facility] [address] [facility] [address] [place] [phone] Bob Oneal MD [address] [facility] [address] [place] [address] documented as of this encounter Procedures Procedure Name Priority Date/Time Associated Diagnosis Comments TSH W/REFLEX Routine 09/22/2022 7:42 AM CDT Annual physical exam HEMOGLOBIN, GLYCOSYLATED Routine 09/22/2022 7:42 AM CDT Annual physical exam COMPREHENSIVE METABOLIC PANEL Routine 09/22/2022 7:42 AM CDT Annual physical exam LIPID PANEL Routine 09/22/2022 7:42 AM CDT Annual physical exam HEPATITIS C ANTIBODY Routine 09/22/2022 7:42 AM CDT Annual physical exam CBC W/DIFF AUTOMATED Routine 09/22/2022 7:42 AM CDT Annual physical exam TESTOSTERONE, TOTAL Routine 09/22/2022 7 :42 AM CDT Low testosterone VITAMIN D, 25 OH Routine 09/22/2022 7:42 AM CDT Annual physical exam VENIPUNC ARM DRAW Routine 09/22/2022 7:2 6 AM CDT Annual physical exam documented in this encounter Results * (ABNORMAL) TESTOSTERONE, TOTAL (09/22/2022 7:42 AM CDT) Testosterone: 182.6(L) 197.4 - 669.6 NG/DL 09/23/2022 2:19 PM CDT [facility] Comment: ASSAY PERFORMED BY CHEMILUMINESCENCE METHODOLOGY USING SIEMENS [employer] XPT REAGENT. PATIENT RESULTS DETERMINED BY ASSAYS USING DIFFERENT MANUFACTURERS FOR METHODS MAY NOT BE COMPARABLE. 09/22/2022 7:42 AM CDT Pankaj Rosenberg MD LABORATORY Final Result [facility] [address] [place] [id number], * (ABNORMAL) CBC W/DIFF AUTOMATED (09/22/2022 7:42 AM CDT) Pathologist [facility] WBC 8.52 4.00 - 10.80 x10'3/uL 09/22/2022 2:34 PM CDT [facility] RBC 4.97 4.50 - 6.10 x10'6/uL 09/22/2022 2:34 PM CDT [facility] HGB 12.9(L) 13.0 - 18.0 G/DL 09/22/2022 2:34 PM CDT [facility] HCT 40.8 37.0 - 52.0 % 09/22/2022 2:34 PM CDT [facility] MCV 82.1 78.0 - 100.0 FL 09/22/2022 2:34 PM CDT [facility] MCH 26.0(L) 27.0 - 31.0 PG 09/22/2022 2:34 PM CDT [facility] MCHC 31.6(L) 33.0 - 36.0 G/DL 09/22/2022 2:34 PM CDT [facility] RDW 13.4 11.5 - 14.5 % 09/22/2022 2:34 PM CDT [facility] PLT 346 150 - 350 x10'3/uL 09/22/2022 2:34 PM CDT [facility] MPV 10.6(H) 7.4 - 10.4 FL 09/22/2022 2:34 PM CDT [facility] DIFFERENTIAL TYPE AUTOMATED DIFFERENTIAL 09/22/2022 2:35 PM CDT [facility] NEUTROPH[facility] % 63.1 % 09/22/2022 2:35 PM CDT [facility] LYMPHOCYTES % 27.6 % 09/22/2022 2:35 PM CDT [facility] MONOCYTES % 6.6 % 09/22/2022 2:35 PM CDT [facility] EOSINOPHILS % 1.6 % 09/22/2022 2:35 PM CDT [facility] BASOPHIL[facility] % 0.4 % 09/22/2022 2:35 PM CDT [facility] IMMATURE GRANS % 0.7 % 09/22/2022 2:35 PM CDT [facility] ABS. NEUTROPHILS 5.38 1.60 - 8.30 x10'3/uL 09/22/2022 2:35 PM CDT [facility] ABS. LYMPHOCYTES 2.35 0.80 - 4.70 x10'3/uL 09/22/2022 2:35 PM CDT [facility] ABS. MONOCYTES 0.56 0.00 - 1.50 x10'3/uL 09/22/2022 2:35 PM CDT [facility] ABS. EOSINOPHILS 0.14 0.00 - 0.40 x10'3/uL 09/22/2022 2:35 PM CDT [facility] ABS. BASOPHILS 0.03 0.00 - 0.20 x10'3/uL 09/22/2022 2:35 PM CDT [facility] ABS. IMMATURE GRANULOCYTES 0.06(H) 0.00 - 0.03 x10'3/uL 09/22/2022 2:35 PM CDT -[facility] 09/22/2022 7:42 AM CDT Pankaj Rosenberg MD LABORATORY Final Result [facility] [address] [place] [address], * (ABNORMAL) COMPREHENSIVE METABOLIC PANEL (09/22/2022 7:42 AM CDT) SODIUM S/P/B 138 136 - 145 MMOL/L 09/22/2022 3:54 PM CDT -[facility] POTASSIUM S/P/B 4.4 3.5 - 5.1 MMOL/L 09/22/2022 3:54 PM CDT -[facility] CHLORIDE S/P/B 103 98 - 107 MMOL/L 09/22/2022 3:54 PM CDT [facility] CO2 24.1 21 - 32 MMOL/L 09/22/2022 3:54 PM CDT [facility] GLUCOSE 167(H) 70 - 99 MG/DL 09/22/2022 3:54 PM CDT [facility] BUN 14 7 - 18 MG/DL 09/22/2022 3:54 PM CDT -[facility] CREATININE S/P/B 0.95 0.70 - 1.30 MG/DL 09/22/2022 3:54 PM CDT [facility] CALCIUM S/P/B 9.0 8.4 - 10.5 MG/DL 09/22/2022 3:54 PM CDT [facility] BILIRUBIN TOTAL S/P/B 0.3 0.2 - 1.0 MG/DL 09/22/2022 3:54 PM CDT [facility] ALKALINE PHOSPHATASE S/P/B 136(H) 45 - 115 U/L 09/22/2022 3:54 PM CDT [facility] AST 18 15 - 37 U/L 09/22/2022 3:54 PM T [facility] ALT 48 16 - 63 U/L 09/22/2022 3:54 PM T [facility] TOTAL PROTEIN S/P/B 7.3 6.4 - 8.2 G/DL 09/22/2022 3:54 PM T [facility] ALBUMIN S/P/B 3.6 3.4 - 5.0 G/DL 09/22/2022 3:54 PM T [facility] ANION GAP 10.9 5 - 15 MMOL/L 09/22/2022 3:54 PM T [facility] Comment:REFERENCE RANGE NOT ESTABLISHED OSMOLALITY (CALC) 290 MOSM/KG 023 3:54 PM T [facility] Comment:REFERENCE RANGE NOT ESTABLISHED GFR ESTIMATE >90 >90 ML/MIN/1. 73 M2 09/22/2022 3:[address] [facility] GFR NOTES GFR REFERENCE S: 09/22/2022 3:[address] [facility] Comment: THE ESTIMATED GFR IS CALCULATED [...] ml/min/1.73 m2 G5,KIDNEY FAILURE: <15 ml/min/1.73 m2 09/22/2022 7:42 AM CDT us Pankaj Rosenberg MD LABORATORY Final Result [facility] [address] [place] [address], [place] [phone] * (ABNORMAL) LIPID PANEL (09/22/2022 7:42 AM CDT) CHOLESTEROL 170 <200 MG/DL 09/22/2022 3:54 PM CDT [facility] TRIGLYCERIDES 245(H) <150 MG/DL 09/22/2022 3:54 PM CDT [facility] HDL 30(L) >40 MG/DL 09/22/2022 3:54 PM CDT [facility] LDL-C 91 <100 MG/DL 09/22/2022 3:54 PM CDT [facility] VLDL CALCULATION 49(H) 5 - 28 MG/DL 09/22/2022 3:54 PM CDT [facility] CHOL/HDL RATIO 5.7(H) 0.0 - 4.0 09/22/2022 3:54 PM CDT [facility] LDL/HDL 3.0(H) 0.41 - 2.13 09/22/2022 3:54 PM CDT [facility] NON HDL CHOLESTEROL 140(H) <140 MG/DL 09/22/2022 3:54 PM CDT [facility] 09/22/2022 7:42 AM CDT us Pankaj Rosenberg MD LABORATORY Final Result [facility] [address] [place] [address], [place] [phone] * TSH W/REFLEX (09/22/2022 7:42 AM CDT) TSH 0.990 0.358 - 3.740 uIU/ML 09/22/2022 3:54 PM CDT [facility] 09/22/2022 7:42 AM CDT Pankaj Rosenberg MD LABORATORY Final Result Performing Organization Address [facility] de Phone Number [facility] [address] [place] [address], [place] [phone] * (ABNORMAL) HEMOGLOBIN, GLYCOSYLATED (09/22/2022 7:42 AM CDT) [facility] HGB A1C 6.6(H) 4.5 - 6.2 % 09/22/2022 3:53 PM CDT [facility] ESTIMATED AVG GLUCOSE 143(H) 74 - 106 MG/DL 09/22/2022 3:53 PM CDT [facility] 09/22/2022 7:42 AM CDT Pankaj Rosenberg MD LABORATORY Final Result Performing Organization Address [facility] de Phone Number [address] [address], * (ABNORMAL) VITAMIN D, 25 OH (09/22/2022 7:42 AM CDT) [facility] VITAMIN D 25 HYDROXY TOTAL S/P/B 13.4(L) 30 - 100 NG/ML 09/22/2022 3:54 PM CDT [facility] Comment: ? DEFICIENT ??<20 ?INSUFFICIENT 20-30 ?SUFFICIENT 30-100 09/22/2022 7:42 AM CDT Pankaj Rosenberg MD LABORATORY Final Result [facility] [address] [facility] [place] [address], [place] [phone] * HEPATITIS C ANTIBODY ([facility] ONLY) (09/22/2022 7:42 AM CDT) HEPATITIS C AB NON-REACTI VE NON-REACT RACHELLE 09/22/2022 11:59 PM CDT [facility] Comment: ANTIBODIES TO HCV NOT DETECTED. DOES NOT EXCLUDE THE POSSIBILITY OF EXPOSURE TO HCV. 09/22/2022 7:42 AM CDT Pankaj Rosenberg MD LABORATORY Final Result Performing Organization Address City/[facility]/ZIP Co de Phone Number [facility] [address] [place] [address], [place] [phone] documented in this encounter Visit Diagnoses Diagnosis Annual physical exam- Primary Routine general medical examination at a health care facility Low testosterone Other testicular hypofunction documented in this encounter Additional Health Concerns Assessment Noted Time PHQ-9 Depression Total Score: 0 08/01/19 22 2:12 PM CDT documented as of this encounter Care Teams Anglesmith Helper Relationship Specialty Start Date End Date Pankaj Rosenberg MD [address] [facility] [address] [place] [address] PCP - General INTERNAL MEDICINE 06/15/21 documented as of this encounter
--- OUTSIDE RECORDS SUMMARY | 2024-05-13 10:47 | XMS_ITS | Encounter Summary ---
Author Organization [facility] Address [address] [place] [address]. 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 No / Unsure 09/22/2022 7:20 AM CDT documented as of this encounter Progress Notes * Isela Daily MA - 10/12/2022 7:46 AM CDT The ED notes are already in his chart. * Jus Carson MD - 10/08/2022 4:14 PM CDT He had an ER visit for abdominal pain. He has a visit scheduled on 10/13/[address] Rosenberg. Please obtain records for her. documented in this encounter Plan of Treatment Upcoming Encounters Date Type Department Care Team (Late st Contact Info) Description 05/15/2024 3:30 PM LOCAL SALES [place] [address] Pankaj Rosenberg MD [address] [place] [phone] 05/25/2024 12:45 PM LOCAL SALES ASSOCIATE Office Visit [facility] Physical Therapy [address] [place] [address] Pankaj Rosenberg MD [address] [place] [address] Maya Magaña, [place] [address] 05/30/2024 3:40 PM LOCAL SALES ASSOCIATE Office Visit [facility] Medical [facility] Multispecialty Care - [place] [address] [address] [place], [place] [phone] Pankaj Rosenberg MD [address] [place] [address] 06/20/2024 3:40 PM LOCAL SALES ASSOCIATE Telemedicine [facility] Multispecialty Care - [place] [address] [address] [place] [address] Pankaj Rosenberg MD 1188 [facility] [address] [place] [address] 06/21/2024 1:00 PM LOCAL SALES ASSOCIATE Office Visit [facility] Orthopedic & Sports Medicine - [place] [address] [place] [address] Jose Ratliff MD [address] [address] [place] [address] 03/27/2025 1:00 PM LOCAL SALES ASSOCIATE Office Visit [facility] Multispecialty [facility] Emergency Department - [facility] [address] [facility] [address] [place] [address] Bob Oneal MD 3 [facility] [address] [place] [address] documented as of this encounter Visit Diagnoses Not on filedocumented in this encounter Additional Health Concerns Assessment Noted Time PHQ-9 Depression Total Score: 0 08/01/19 22 2:12 PM CDT documented as of this encounter Care Teams Service Advisor Relationship Specialty Start Date End Date Pankaj Rosenberg MD [address] [place] [address] PCP - General INTERNAL MEDICINE 06/15/21 documented as of this encounter
--- OUTSIDE RECORDS SUMMARY | 2024-05-13 10:47 | XMS_ITS | Encounter Summary ---
Author Organization [facility] Address [address] [place] [address]. [place], [place] [address] [place] [address] Care Team Providers Care Machine Slat Basket Maker Name Role Phone Pankaj Rosenberg MD Primary Care Provider [phone] Reason for Visit * Reason Onset Date Comments Prior Authorization 06/17/2022 Encounter Details Date Type Department Care Team (Late st Contact Info) Description 06/17/2022 Telephone [facility] Medical Group Multispecialty Care - [place] [address] [address] [place] [address] Pankaj Rosenberg MD [address] [place] [address] [address] [place], [place] [phone] Prior Authorization Social History Tobacco Use Types Packs/Day Years [...] on file Legal Sex Male 2:58 PM PATIENT CARE NURSING ASSISTANT Gender Identity Male 07/13/2021 5:19 AM PATIENT CARE NURSING ASSISTANT Sexual Orientation Straight 07/13/2021 5: 19 AM PATIENT CARE NURSING ASSISTANT COVID-19 Exposure Response Date Recorded In the last 10 days, have yo u been in contact with someone who was confirmed or suspected to have Coronavirus/COVID-19? No / Unsure 06/15/2022 1:57 PM PATIENT CARE NURSING ASSISTANT documented as of this encounter Progress Notes * Rocio Marie MA - 06/22/2022 10:15 AM CST Pt called back and states he still has enough Omeprazole for at least another month. Pt states he will notify our office if he cannot afford to pay for it out of pocket since his insurance does not cover it ENT CARE NURSING ASSISTANT * Rocio Marie MA - 06/21/2022 3:53 PM CST Called and lm on vm for pt to call our office ENT CARE NURSING ASSISTANT * Rocio Marie MA - 06/17/2022 7:14 AM CST Pharmacy sent fax stating that the Omeprazole it is not covered due to the patients age Pt's insurance has changed to Medicaid this year ENT CARE NURSING ASSISTANT ENT CARE NURSING ASSISTANT documented in this encounter Plan of Treatment Upcoming Encounters Date Type Department Care Team (Late st Contact Info) Description 05/15/2024 3:30 PM PATIENT CARE NURSING ASSISTANT Appointment [facility] [place] [address] Pankaj Rosenberg MD [address] [place] [address] 05/25/2024 12:45 PM PATIENT CARE NURSING ASSISTANT Office Visit [facility] Physical Therapy [address] [place] [address] Pankaj Rosenberg MD [address] [place] [address] Maya Magaña, [place] [address] 05/30/2024 3:40 PM PATIENT CARE NURSING ASSISTANT Office Visit [facility] Multispecialty Care - [place] [address] [address] [place] [address] Pankaj Rosenberg MD [address] [place] [address] 06/20/2024 3:40 PM PATIENT CARE NURSING ASSISTANT [facility]icine [facility] - [place] [address] [address] [place] [address] Pankaj Rosenberg MD [address] [place] [address] 06/21/2024 1:00 PM PATIENT CARE NURSING ASSISTANT Office Visit [facility] Orthopedic & Sports Medicine - [place] [address] [place] [address] Jose Ratliff MD [address] [address] [place] [address] 03/27/2025 1:00 PM PATIENT CARE NURSING ASSISTANT Office Visit [facility] Multispecialty Care - [facility] [address] [facility], [address] [place] [address] Bob Oneal MD 3 [facility] [address] [place] [address] documented as of this encounter Visit Diagnoses Not on filedocumented in this encounter Additional Health Concerns Assessment Noted Time PHQ-9 Depression Total Score: 0 08/01/19 22 2:12 PM CDT documented as of this encounter Care Teams Machine Slat Basket Maker Relationship Specialty Start Date End Date Pankaj Rosenberg MD [address] [place] [address] PCP - General INTERNAL MEDICINE 06/15/21 documented as of this encounter
--- OUTSIDE RECORDS SUMMARY | 2024-05-13 10:47 | XMS_ITS | Encounter Summary ---
Author Organization [facility] Address [address] [place] [address]. [place], [place] [address] [place] [address] Care Team Providers Care Pasting Machine Operator Name Role Phone Pankaj Rosenberg MD Primary Care Provider [phone] Encounter Details Date Type Department Care Team (Latest Contact Info) Description 10/08/2022 Scan [facility] INFO SRVCS Scanned, Doc [...] on file Legal Sex Male 2:58 PM RADIATOR FITTER Gender Identity Male 07/13/2021 5:19 AM RADIATOR FITTER Sexual Orientation Straight 07/13/2021 5: 19 AM RADIATOR FITTER COVID-19 Exposure Response Date Recorded In the last 10 days, have yo u been in contact with someone who was confirmed or suspected to have Coronavirus/COVID-19? No / Unsure 09/22/2022 7:20 AM CDT documented as of this encounter Plan of Treatment Upcoming Encounters Date Type Department Care Team (Late st Contact Info) Description 05/15/2024 3:30 PM RADIATOR FITTER Appointment [facility] MRI ONE [place], [place] [address] Pankaj Rosenberg MD [address] [address] 05/25/2024 12:45 PM RADIATOR FITTER Office [facility] Physical Therapy [address] [address] Pankaj Rosenberg MD [address] [address] Maya Magaña, [place] [address] 05/30/2024 3:40 PM RADIATOR FITTER Office Visit [facility] Medical [facility] Multispecialty [facility] [place] [address] [facility] [address] [place] [address] Pankaj Rosenberg MD [address] [address] 06/20/2024 3:40 PM RADIATOR FITTER Telemedicine [facility] Medical [facility] Multispecialty [facility] [place] [address] [address] [place] [address] Pankaj Rosenberg MD [address] [address] 06/21/2024 1:00 PM RADIATOR FITTER Office Visit [facility] Medical Group [facility] - [place] [address] [place] [address] Jose Ratliff MD [address] [address] [place] [address] 03/27/2025 1:00 PM RADIATOR FITTER Office Visit [facility] Medical [facility] Multispecialty Care - [facility] 3 [facility] [address] [place] [phone] Bob Oneal MD [address] [place] [address] documented as of this encounter Visit Diagnoses Not on filedocumented in this encounter Additional Health Concerns Assessment Noted Time PHQ-9 Depression Total Score: 0 08/01/19 22 2:12 PM CDT documented as of this encounter Care Teams Pasting Machine Operator Relationship Specialty Start Date End Date Pankaj Rosenberg MD [address] [address] PCP - General INTERNAL MEDICINE 06/15/21 documented as of this encounter
--- OUTSIDE RECORDS SUMMARY | 2024-05-13 10:47 | XMS_ITS | Encounter Summary ---
Author Organization [facility] Address [address] [place] [address]. [place], [place] [address] [place] [address] Care Team Providers Care Farmworkers Name Role Phone Pankaj Rosenberg MD Primary Care Provider [phone] Reason for Visit * Reason Onset Date Comments Follow Up Call 07/21/2022 Encounter Details Date Type Department Care Team (Late st Contact Info) Description 07/21/2022 Telephone [facility] Medical Group Multispecialty Care - [place] [address] [address] [place], [place] [id number] Pankaj Rosenberg MD [address] [place] [address] 157 [place] [address] Follow Up Call Social History [...] on file Legal Sex Male 2:58 PM ELECTRIC ENGINE MECHANIC Gender Identity Male 07/13/2021 5:19 AM ELECTRIC ENGINE MECHANIC Sexual Orientation Straight 07/13/2021 5: 19 AM ELECTRIC ENGINE MECHANIC documented as of this encounter Progress Notes * Pankaj Rosenberg MD - 07/21/2022 11:21 AM CST I am notified patient recent surgery was done on outpatient bases for his gallbladder polyp and patient will be following up his surgeon post op. TRIC ENGINE MECHANIC documented in this encounter Plan of Treatment Upcoming Encounters Date Type Department Care Team (Late st Contact Info) Description 05/15/2024 3:30 PM ELECTRIC ENGINE MECHANIC Appointment [facility] [place] [address] Pankaj Rosenberg MD [address] [place] [address] 05/25/2024 12:45 PM ELECTRIC ENGINE MECHANIC Office Visit [facility] Physical Therapy [address] [place] [address] Pankaj Rosenberg MD [address] [place] [address] Maya Magaña, [place] [address] 05/30/2024 3:40 PM ELECTRIC ENGINE MECHANIC Office Visit [facility] Medical [facility] Multispecialty Care - [address] [address] Pankaj Rosenberg MD [facility] [address] [address] 06/20/2024 3:40 PM ELECTRIC ENGINE MECHANIC Telemedicine [facility] Multispecialty Care - [place] [address] [address] [place] [address] Pankaj Rosenberg MD [facility] [address] [address] 06/21/2024 1:00 PM ELECTRIC ENGINE MECHANIC Office Visit [facility] Medical Group Orthopedic & Sports Medicine - [address] [place] [address] Jose Ratliff MD [address] [address] [place] [address] 03/27/2025 1:00 PM ELECTRIC ENGINE MECHANIC Office Visit [facility] Medical Group Multispecialty Care - [facility] [address] [place] [address] Bob Oneal MD [address] [facility] [address] [place] [address] documented as of this encounter Visit Diagnoses Not on filedocumented in this encounter Additional Health Concerns Assessment Noted Time PHQ-9 Depression Total Score: 0 08/01/19 22 2:12 PM CDT documented as of this encounter Care Teams Farmworkers Relationship Specialty Start Date End Date Pankaj Rosenberg MD [address] [address] PCP - General INTERNAL MEDICINE 06/15/21 documented as of this encounter
--- OUTSIDE RECORDS SUMMARY | 2024-05-13 10:47 | XMS_ITS | Encounter Summary ---
Author Organization [facility] Address [address] [place] [address]. [place], [place] [address] [place] [address] Care Team Providers Care Photo Tube Assembler Name Role Phone Pankaj Rosenberg MD Primary Care Provider [phone] Reason for Visit * Reason Onset Date Comments Error 07/01/2022 Encounter Details Date Type Department Care Team (Late st Contact Info) Description 07/01/2022 Telephone [facility] Medical Group Multispecialty Care - [place] [address] [address] [place] [address] Pankaj Rosenberg MD [address] [place] [address] 157 [place], [place] [id number] Error Social History Tobacco Use Types Packs/Day Years [...] on file Legal Sex Male 2:58 PM MANAGER REGIONAL SALES Gender Identity Male 07/13/2021 5:19 AM MANAGER REGIONAL SALES Sexual Orientation Straight 07/13/2021 5: 19 AM MANAGER REGIONAL SALES COVID-19 Exposure Response Date Recorded In the last 10 days, have yo u been in contact with someone who was confirmed or suspected to have Coronavirus/COVID-19? No / Unsure 06/15/2022 1:57 PM MANAGER REGIONAL SALES documented as of this encounter Plan of Treatment Upcoming Encounters Date Type Department Care Team (Late st Contact Info) Description 05/15/2024 3:30 PM MANAGER REGIONAL SALES Appointment [facility] [place] [address] Pankaj Rosenberg MD [address] [address] 05/25/2024 12:45 PM MANAGER REGIONAL SALES Office Visit [facility] Physical Therapy [address] [place] [address] Pankaj Rosenberg MD [facility] [address] [address] Maya Magaña, [place] [address] 05/30/2024 3:40 PM MANAGER REGIONAL SALES Office Visit [facility] Medical [facility] Multispecialty Care - [address] [address] Pankaj Rosenberg MD [address] [address] 06/20/2024 3:40 PM MANAGER REGIONAL SALES Telemedicine [facility] Multispecialty Care - [place] [address] [address] [place] [address] Pankaj Rosenberg MD [address] [address] 06/21/2024 1:00 PM MANAGER REGIONAL SALES Office Visit [facility] Medical Group Orthopedic & Sports Medicine - [place] [address] [place], [place] [address] Jose Ratliff MD [address] [place] [address] 03/27/2025 1:00 PM MANAGER REGIONAL SALES Office Visit [facility] Medical Group Multispecialty Care - [facility] 3 [facility] [address] [place] [address] Bob Oneal MD 3 [facility] [address] [place] [address] documented as of this encounter Visit Diagnoses Not on filedocumented in this encounter Additional Health Concerns Assessment Noted Time PHQ-9 Depression Total Score: 0 08/01/19 22 2:12 PM CDT documented as of this encounter Care Teams Photo Tube Assembler Relationship Specialty Start Date End Date Pankaj Rosenberg MD 1188 [facility] [address] [place] [address] PCP - General INTERNAL MEDICINE 06/15/21 documented as of this encounter
--- OUTSIDE RECORDS SUMMARY | 2024-05-13 10:47 | XMS_ITS | Encounter Summary ---
Author Organization [facility] Address [address] [place] [address]. [place], [place] [address] [place] [address] Care Team Providers Care Stage Set Up Worker Name Role Phone Pankaj Rosenberg MD Primary Care Provider [phone] Reason for Visit * Reason Onset Date Comments Follow Up Call 07/13/2022 Encounter Details Date Type Department Care Team (Late st Contact Info) Description 07/13/2022 Telephone [facility] Medical Group Multispecialty Care - [place] [address] [address] [place], [place] [id number] Pankaj Rosenberg MD [address] [place] [address] 157 [place] [address] Follow Up Call Social History [...] on file Legal Sex Male 2:58 PM SAFETY COMPANION Gender Identity Male 07/13/2021 5:19 AM SAFETY COMPANION Sexual Orientation Straight 07/13/2021 5: 19 AM SAFETY COMPANION COVID-19 Exposure Response Date Recorded In the last 10 days, have yo u been in contact with someone who was confirmed or suspected to have Coronavirus/COVID-19? No / Unsure 06/15/2022 1:57 PM SAFETY COMPANION documented as of this encounter Progress Notes * Doc Ribera - 07/14/2022 9:52 AM CST Called patient on 07/13/22 and he was currently in surgery. I LVM for him to schedule a TCM/follow up appt upon discharge. TY COMPANION * Pankaj Rosenberg MD - 07/13/2022 2:04 PM CST Patient was recently discharged from the hospital for gallbladder polyp surgery. Please call and schedule for a hospital follow-up. Thank you. TY COMPANION documented in this encounter Plan of Treatment Upcoming Encounters Date Type Department Care Team (Late st Contact Info) Description 05/15/2024 3:30 PM SAFETY COMPANION Appointment [facility] [place] [address] Pankaj Rosenberg MD [address] [place] [address] 05/25/2024 12:45 PM SAFETY COMPANION Office Visit [facility] Physical Therapy [address] [place] [address] Pankaj Rosenberg MD [facility] [address] [address] Maya Magaña, [place] [address] 05/30/2024 3:40 PM SAFETY COMPANION Office Visit [facility] Medical Group Multispecialty Care - [place] [address] [address] [place] [address] Pankaj Rosenberg MD [address] [place] [address] 06/20/2024 3:40 PM SAFETY COMPANION Telemedicine [facility] Multispecialty Care - [place] [address] [address] [place] [address] Pankaj Rosenberg MD 1188 [facility] 157 [place] [address] 06/21/2024 1:00 PM SAFETY COMPANION Office Visit [facility] Orthopedic & Sports Medicine - [place] [address] [place] [address] Jose Ratliff MD [address] [place] [address] [place] [address] 03/27/2025 1:00 PM SAFETY COMPANION [facility] 3 [facility] [address] [place] [address] Bob Oneal MD 3 [facility] [address] [place] [address] documented as of this encounter Visit Diagnoses Not on filedocumented in this encounter Additional Health Concerns Assessment Noted Time PHQ-9 Depression Total Score: 0 08/01/19 22 2:12 PM CDT documented as of this encounter Care Teams Stage Set Up Worker Relationship Specialty Start Date End Date Pankaj Rosenberg MD 1188 [facility] 157 [place] [address] PCP - General INTERNAL MEDICINE 06/15/21 documented as of this encounter
--- OUTSIDE RECORDS SUMMARY | 2024-05-13 10:47 | XMS_ITS | Encounter Summary ---
Author Organization [facility] Address [address] [place] [address]. [place], [place] [address] [place] [address] Care Team Providers Care Automobile Racer Name Role Phone Pankaj Rosenberg MD Primary Care Provider [phone] Reason for Visit * Reason Onset Date Comments Reschedule 06/30/2022 Called patient a nd left voicemail that we need to reschedule their appt scheduled for this July 02 and to call the office back at [phone]. Encounter Details Date Type Department Care Team (Late st Contact Info) Description 06/30/2022 Telephone [facility] Medical Group Multispecialty Care - [place] [address] [address] [place] [address] Pankaj Rosenberg MD [address] [place] [address] Reschedule (Called patient and left voicemail that we need to reschedule their appt scheduled for this July 02 and to call the office back at [phone]. ) Social History Tobacco Use Types Packs/Day [...] file Legal Sex Male 2:58 PM ROLL CONTOUR GRINDER Gender Identity Male 07/13/2021 5:19 AM ROLL CONTOUR GRINDER Sexual Orientation Straight 07/13/2021 5: 19 AM ROLL CONTOUR GRINDER COVID-19 Exposure Response Date Recorded In the last 10 days, have yo u been in contact with someone who was confirmed or suspected to have Coronavirus/COVID-19? No / Unsure 06/15/2022 1:57 PM ROLL CONTOUR GRINDER documented as of this encounter Plan of Treatment Upcoming Encounters Date Type Department Care Team (Late st Contact Info) Description 05/15/2024 3:30 PM ROLL CONTOUR GRINDER Appointment [facility] [place] [address] Pankaj Rosenberg MD [address] [place] [address] 05/25/2024 12:45 PM ROLL CONTOUR GRINDER Office Visit [facility] Physical Therapy [address] [place] [address] Pankaj Rosenberg MD [address] [place] [address] Maya Magaña, [place] [address] 05/30/2024 3:40 PM ROLL CONTOUR GRINDER Office Visit [facility] - [place] [address] [address] [place] [address] Pankaj Rosenberg MD [address] [place] [address] 06/20/2024 3:40 PM ROLL CONTOUR GRINDER [facility]medicine [facility] [place] [address] [address] [place] [address] Pankaj Rosenberg MD [address] [place] [address] 06/21/2024 1:00 PM ROLL CONTOUR GRINDER Office Visit [facility] Orthopedic & Sports Medicine - [place] [address] [place] [address] Jose Ratliff MD [address] [place] [address] [place] [address] 03/27/2025 1:00 PM ROLL CONTOUR GRINDER Office Visit [facility] Multispecialty Care - [facility] 3 [facility] [place] [address] Bob Oneal MD [address] [facility] [address] [place] [address] documented as of this encounter Visit Diagnoses Not on filedocumented in this encounter Additional Health Concerns Assessment Noted Time PHQ-9 Depression Total Score: 0 08/01/19 22 2:12 PM CDT documented as of this encounter Care Teams Automobile Racer Relationship Specialty Start Date End Date Pankaj Rosenberg MD 1188 [facility] 157 [place] [address] PCP - General INTERNAL MEDICINE 06/15/21 documented as of this encounter
--- OUTSIDE RECORDS SUMMARY | 2024-05-13 10:47 | XMS_ITS | Encounter Summary ---
Author Organization [facility] Address [address] [place] [address]. [place], [place] [address] [place] [address] Care Team Providers Care Red Lead Burner Name Role Phone Pankaj Rosenberg MD Primary Care Provider [phone] Encounter Details Date Type Department Care Team (Latest Contact Info) Description 07/01/2022 Stribe Message Enc [facility] Medical Group Multispecialty Care - [address] [place] [address] [facility] Provider Reschedule Tuesday, July 02 lab appt Social History Tobacco Use Types Packs/Day Years [...] on file Legal Sex Male 2:58 PM ORACLE APPLICATION CONSULTANT Gender Identity Male 07/13/2021 5:19 AM ORACLE APPLICATION CONSULTANT Sexual Orientation Straight 07/13/2021 5: 19 AM ORACLE APPLICATION CONSULTANT COVID-19 Exposure Response Date Recorded In the last 10 days, have yo u been in contact with someone who was confirmed or suspected to have Coronavirus/COVID-19? No / Unsure 06/15/2022 1:57 PM ORACLE APPLICATION CONSULTANT documented as of this encounter Plan of Treatment Upcoming Encounters Date Type Department Care Team (Late st Contact Info) Description 05/15/2024 3:30 PM ORACLE APPLICATION CONSULTANT Appointment [facility] [place] [address] Pankaj Rosenberg MD [facility] [place] [address] 05/25/2024 12:45 PM ORACLE APPLICATION CONSULTANT Office Visit [facility] Physical Therapy [address] [place] [address] Pankaj Rosenberg MD [facility] [place] [address] Maya Magaña, [place] [address] 05/30/2024 3:40 PM ORACLE APPLICATION CONSULTANT Office Visit [facility] Medical [facility] Multispecialty Care - [place] [address] [address] [place] [address] Pankaj Rosenberg MD [facility] [place] [address] 06/20/2024 3:40 PM ORACLE APPLICATION CONSULTANT Telemedicine [facility] Medical [facility] - [place] [address] [address] [place] [address] Pankaj Rosenberg MD [facility] [place] [address] 06/21/2024 1:00 PM ORACLE APPLICATION CONSULTANT Office Visit [facility] Medical Group Orthopedic & Sports Medicine - [place] [address] [place] [address] Jose Ratliff MD [address] [address] [place] [address] 03/27/2025 1:00 PM ORACLE APPLICATION CONSULTANT Office Visit [facility] Medical Group Multispecialty Care - [facility] 3 [facility] [place] [address] Bob Oneal MD 3 [facility] [address] [place] [address] documented as of this encounter Visit Diagnoses Not on filedocumented in this encounter Additional Health Concerns Assessment Noted Time PHQ-9 Depression Total Score: 0 08/01/19 22 2:12 PM CDT documented as of this encounter Care Teams Red Lead Burner Relationship Specialty Start Date End Date Pankaj Rosenberg MD [address] [address] PCP - General INTERNAL MEDICINE 06/15/21 documented as of this encounter
--- OUTSIDE RECORDS SUMMARY | 2024-05-13 10:47 | XMS_ITS | Encounter Summary ---
Author Organization [facility] Address [address] [place] [address]. [place] [address] [place] [address] Care Team Providers Care Station Installation Supervisor Name Role Phone Pankaj Rosenberg MD Primary Care Provider [phone] Encounter Details Date Type Department Care Team (Latest Contact Info) Description 09/09/2022 Scan HEALTH INFO SRVCS Scanned, Doc Med [...] on file Legal Sex Male 2:58 PM CARPENTRY TEACHER Gender Identity Male 07/13/2021 5:19 AM CARPENTRY TEACHER Sexual Orientation Straight 07/13/2021 5: 19 AM CARPENTRY TEACHER documented as of this encounter Plan of Treatment Upcoming Encounters Date Type Department Care Team (Late st Contact Info) Description 05/15/2024 3:30 PM CARPENTRY TEACHER Appointment [facility] [place] [address] Pankaj Rosenberg MD 1188 [facility] [address] [place] [address] 05/25/2024 12:45 PM CARPENTRY TEACHER Office Visit [facility] Physical Therapy [address] [place] [address] Pankaj Rosenberg MD [address] [address] Maya Magaña, [place] [address] 05/30/2024 3:40 PM CARPENTRY TEACHER Office Visit [facility] Multispecialty Care - [place] [address] [address] [place] [address] Pankaj Rosenberg MD [facility]8 [address] [address] 06/20/2024 3:40 PM CARPENTRY TEACHER [facility] - [place] [address] [address] [place] [address] Pankaj Rosenberg MD [facility] [address] [address] 06/21/2024 1:00 PM CARPENTRY TEACHER Office Visit [facility] Medical Group Orthopedic & Sports Medicine - [place] [address] [place] [address] Jose Ratliff MD 670 [facility] [address] [place] [address] 03/27/2025 1:00 PM CARPENTRY TEACHER Office Visit [facility] Medical Group Multispecialty Care - [facility] 3 [facility] [address] [place] [address] Bob Oneal MD 3 [facility] [address] [place] [address] documented as of this encounter Visit Diagnoses Not on filedocumented in this encounter Additional Health Concerns Assessment Noted Time PHQ-9 Depression Total Score: 0 08/01/19 22 2:12 PM CDT documented as of this encounter Care Teams Station Installation Supervisor Relationship Specialty Start Date End Date Pankaj Rosenberg MD [address] [address] PCP - General INTERNAL MEDICINE 06/15/21 documented as of this encounter
--- OUTSIDE RECORDS SUMMARY | 2024-05-13 10:47 | XMS_ITS | Encounter Summary ---
Author Organization [facility] Address [address] [place] [address]. [place], [place] [address] [place] [address] Care Team Providers Care Still Operator Name Role Phone Pankaj Rosenberg MD Primary Care Provider [phone] Reason for Visit * Reason Onset Date Comments Forms 11/05/2022 Encounter Details Date Type Department Care Team (Late st Contact Info) Description 11/05/2022 Telephone [facility] Medical Group Multispecialty Care - [place] [address] [address] [address] [place] [address] Pankaj Rosenberg MD [address] [place] [address] 157 [place], [place] [phone] Forms Social History Tobacco Use Types Packs/Day Years [...] on file Legal Sex Male 2:58 PM MUSIC THERAPY SPECIALIST Gender Identity Male 07/13/2021 5:19 AM MUSIC THERAPY SPECIALIST Sexual Orientation Straight 07/13/2021 5: 19 AM MUSIC THERAPY SPECIALIST documented as of this encounter Progress Notes * Pankaj Rosenberg MD - 11/05/2022 7:12 AM CDT Faxing over form to verify patient last visit and future visit with pulmonary for his CPAP over. documented in this encounter Plan of Treatment Upcoming Encounters Date Type Department Care Team (Late st Contact Info) Description 05/15/2024 3:30 PM MUSIC THERAPY SPECIALIST Appointment [facility] [place] [address] Pankaj Rosenberg MD [address] [place] [address] 05/25/2024 12:45 PM MUSIC THERAPY SPECIALIST Office Visit [facility] Physical Therapy [address] [place] [address] Pankaj Rosenberg MD [address] [place] [address] Maya Magaña, [place] [address] 05/30/2024 3:40 PM MUSIC THERAPY SPECIALIST Office Visit [facility] Medical [facility] Multispecialty Care - [place] [address] [address] [address] [place] [address] Pankaj Rosenberg MD [facility] [address] 06/20/2024 3:40 PM MUSIC THERAPY SPECIALIST Telemedicine [facility] Medical [facility] Multispecialty Care - [place] [address] [address] [address] [place] [address] Pankaj Rosenberg MD [facility] [address] [address] 06/21/2024 1:00 PM MUSIC THERAPY SPECIALIST Office Visit [facility] Medical Group Orthopedic & Sports Medicine - [address] [place] [address] Jose Ratliff MD [address] [address] [place] [address] 03/27/2025 1:00 PM MUSIC THERAPY SPECIALIST Office Visit [facility] Medical Group Multispecialty Care - [facility] [address] [place] [address] Bob Oneal MD [address] [facility] [address] [place] [address] [place] [address] documented as of this encounter Visit Diagnoses Not on filedocumented in this encounter Additional Health Concerns Assessment Noted Time PHQ-9 Depression Total Score: 0 08/01/19 2:12 PM CDT documented as of this encounter Care Teams Still Operator Relationship Specialty Start Date End Date Pankaj Rosenberg MD [address] [address] PCP - General INTERNAL MEDICINE 06/15/21 documented as of this encounter
--- OUTSIDE RECORDS SUMMARY | 2024-05-13 10:47 | XMS_ITS | Encounter Summary ---
Author Organization [facility] Address [address] [place] [address]. [place], [place] [address] [place] [address] Care Team Providers Care Loan Approver Name Role Phone Pankaj Rosenberg MD Primary Care Provider [phone] Reason for Visit * Reason Onset Date Comments Earache 09/09/2022 Encounter Details Date Type Department Care Team (Late st Contact Info) Description 09/09/2022 Telephone [facility] Medical Group Multispecialty Care - [place] [address] [address] [address] [place] [address] Pankaj Rosenberg MD [address] [place] [address] 157 [place], [place] [id number] Earache Social History Tobacco Use Types Packs/Day Years [...] on file Legal Sex Male 2:58 PM EQUIPMENT TECHNICIAN Gender Identity Male 07/13/2021 5:19 AM EQUIPMENT TECHNICIAN Sexual Orientation Straight 07/13/2021 5: 19 AM EQUIPMENT TECHNICIAN documented as of this encounter Progress Notes * Rocio Marie MA - 09/09/2022 9:45 AM CDT Pt called back and ended up going to the urgent care and they prescribed him medications No need for Dr. Rosenberg to send anything in * Rocio Marie MA - 09/09/2022 7:34 AM CDT Pt called and states he has fluid in his ear for the past month and he has just let it go and now he is wanting to have an antibiotic called in . Asked pt to schedule appt and he states he cant this week documented in this encounter Plan of Treatment Upcoming Encounters Date Type Department Care Team (Late st Contact Info) Description 05/15/2024 3:30 PM EQUIPMENT TECHNICIAN Appointment [facility] [place] [address] Pankaj Rosenberg MD [address] [place] [address] 05/25/2024 12:45 PM EQUIPMENT TECHNICIAN Office Visit [facility] Physical Therapy [address] [place] [address] Pankaj Rosenberg MD [facility] [address] [address] Maya Magaña, [place] [address] 05/30/2024 3:40 PM EQUIPMENT TECHNICIAN [facility] - [address] [address] [address] [place] [address] Pankaj Rosenberg MD [facility] [address] [address] 06/20/2024 3:40 PM EQUIPMENT TECHNICIAN [facility] [address] [place] [address] Pankaj Rosenberg MD 1188 [facility] 157 [place] [address] 06/21/2024 1:00 PM EQUIPMENT TECHNICIAN Office Visit [facility] Orthopedic & Sports Medicine - [place] [address] [place] [address] Jose Ratliff MD [address] [place] [address] [place] [address] 03/27/2025 1:00 PM EQUIPMENT TECHNICIAN Office Visit [facility] Multispecialty [facility] - [facility] [address] [facility] [address] [place] [address] Bob Oneal MD 3 [facility] [address] [place] [address] documented as of this encounter Visit Diagnoses Not on filedocumented in this encounter Additional Health Concerns Assessment Noted Time PHQ-9 Depression Total Score: 0 08/01/19 22 2:12 PM CDT documented as of this encounter Care Teams Loan Approver Relationship Specialty Start Date End Date Pankaj Rosenberg MD [address] [place] [address] PCP - General INTERNAL MEDICINE 06/15/21 documented as of this encounter
--- OUTSIDE RECORDS SUMMARY | 2024-05-13 10:47 | XMS_ITS | Encounter Summary ---
Author Organization [facility] Address [address] [place] [address]. [place], [place] [address] [place] [address] Care Team Providers Care Medical Office Rep Name Role Phone Pankaj Rosenberg MD Primary Care Provider [phone] Reason for Visit * Reason Onset Date Comments Appointment Reminder 08/04/2022 Encounter Details Date Type Department Care Team (Late st Contact Info) Description 08/04/2022 Telephone [facility] Medical Group Multispecialty Care - [place] [address] [address] [address] [place] [address] Pankaj Rosenberg MD [address] [place] [address] 157 [place], [place] [phone] Appointment Reminder Social History Tobacco Use Types [...] on file Legal Sex Male 2:58 PM ASSISTANT PRESS OPERATOR OFFSET Gender Identity Male 07/13/2021 5:19 AM ASSISTANT PRESS OPERATOR OFFSET Sexual Orientation Straight 07/13/2021 5: 19 AM ASSISTANT PRESS OPERATOR OFFSET documented as of this encounter Progress Notes * Doc Ribera - 08/05/2022 3:38 PM CDT Patient just called and stated that he didn't feel that he needs a f/u appt at this time but he didschedule his fasting labs nurse visit. He said he feels fine . * Sanaz Cherry MA - 08/04/2022 1:08 PM CDT PC to pt for Status update. He was admitted to [facility] for abd pain on 07/25/22. Call went to [facility].Requested return call back from pt. * Sanaz Cherry MA - 08/04/2022 1:06 PM CDT ----- Message from Pankaj Rosenberg MD sent at 08/03/2022 8:55 AM CDT ----- Please check if patient is discharged yet thanks. documented in this encounter Plan of Treatment Upcoming Encounters Date Type Department Care Team (Late st Contact Info) Description 05/15/2024 3:30 PM ASSISTANT PRESS OPERATOR OFFSET Appointment [facility] [place] [place] [address] Pankaj Rosenberg MD [address] [place] [phone] 05/25/2024 12:45 PM ASSISTANT PRESS OPERATOR OFFSET Office Visit [facility] Physical Therapy [address] [place] [phone] Pankaj Rosenberg MD [address] [place] [address] Maya Magaña, [place] [address] 05/30/2024 3:40 PM ASSISTANT PRESS OPERATOR OFFSET Office Visit [facility] Multispecialty Care - [place] [address] [address] [address] [place] [address] Pankaj Rosenberg MD [address] [address] 06/20/2024 3:40 PM ASSISTANT PRESS OPERATOR OFFSET [facility] [place] [address] [address] [address] [place] [address] [place] [address] [place] [address] 06/21/2024 1:00 PM ASSISTANT PRESS OPERATOR OFFSET Office Visit [facility] Orthopedic & Sports Medicine - [place] [address] [place] [address] Jose Ratliff MD [address] [place] [address] [place] [address] 03/27/2025 1:00 PM ASSISTANT PRESS OPERATOR OFFSET Office Visit [facility] Multispecialty Care - [facility] [address] [facility], [address] [place] [address] Bob Oneal MD 3 [facility] [address] [place] [address] documented as of this encounter Visit Diagnoses Not on filedocumented in this encounter Additional Health Concerns Assessment Noted Time PHQ-9 Depression Total Score: 0 08/01/19 22 2:12 PM CDT documented as of this encounter Care Teams Medical Office Rep Relationship Specialty Start Date End Date Pankaj Rosenberg MD [address] [place] [address] PCP - General INTERNAL MEDICINE 06/15/21 documented as of this encounter
--- OUTSIDE RECORDS SUMMARY | 2024-05-13 10:47 | XMS_ITS | Encounter Summary ---
Author Organization [facility] Address [address] [place] [address]. [place], [place] [address] [place] [address] Care Team Providers Care Dairy Quality Assurance Officer Name Role Phone Pankaj Rosenberg MD Primary Care Provider [phone] Reason for Visit * Reason Onset Date Comments Medication 12/02/2022 Encounter Details Date Type Department Care Team (Late st Contact Info) Description 12/02/2022 Telephone [facility] Medical Group Multispecialty Care - [place] [address] [address] [address] [place] [address] Pankaj Rosenberg MD [address] [place] [address] 157 [place], [place] [phone] Medication Social History Tobacco Use Types Packs/Day [...] on file Legal Sex Male 2:58 PM FRAME SAMPLE AND PATTERN SUPERVISOR Gender Identity Male 07/13/2021 5:19 AM FRAME SAMPLE AND PATTERN SUPERVISOR Sexual Orientation Straight 07/13/2021 5: 19 AM FRAME SAMPLE AND PATTERN SUPERVISOR documented as of this encounter Progress Notes * Pankaj Rosenberg MD - 12/02/2022 10:33 AM CDT Patient having sexual side effects since initiating fenofibrate. He does have very low testosteronethough though symptoms worse with initiation of fenofibrate. 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 * Pankaj Rosenberg MD - 12/02/2022 10:33 AM CDT ----- Message from Chuck Barlow sent at 12/02/2022 9:24 AM CDT ----- Regarding: Side effect from new medications Contact: [facility] doctor. One of the new medications I have started is giving me a sexual side effect. I???m not sure which medication is causing the issue but I do not like this issue I???m having. documented in this encounter Plan of Treatment Upcoming Encounters Date Type Department Care Team (Late st Contact Info) Description 05/15/2024 3:30 PM FRAME SAMPLE AND PATTERN SUPERVISOR Appointment [facility] [place] [address] Pankaj Rosenberg MD [address] [place] [address] 05/25/2024 12:45 PM FRAME SAMPLE AND PATTERN SUPERVISOR Office Visit [facility] Physical Therapy [address] [place] [address] Pankaj Rosenberg MD [address] [place] [address] Maya Magaña, [place] [address] 05/30/2024 3:40 PM FRAME SAMPLE AND PATTERN SUPERVISOR Office Visit [facility] Medical Group Multispecialty Care - [place] [address] [address] [address] [place] [address] [place] [address] [place] [address] 06/20/2024 3:40 PM FRAME SAMPLE AND PATTERN SUPERVISOR [facility] [place] - [place] [address] [address] [address] [place] [address] Pankaj Rosenberg MD [address] [address] 06/21/2024 1:00 PM FRAME SAMPLE AND PATTERN SUPERVISOR Office Visit [facility] Orthopedic & Sports Medicine - [place] [address] [place] [address] Jose Ratliff MD 670 [facility] [address] [place] [address] 03/27/2025 1:00 PM FRAME SAMPLE AND PATTERN SUPERVISOR [facility] - [facility] [address] [facility] [address] [place] [address] Bob Oneal MD 3 [facility] [address] [place] [address] documented as of this encounter Visit Diagnoses Diagnosis Mixed hyperlipidemia- Primary documented in this encounter Additional Health Concerns Assessment Noted Time PHQ-9 Depression Total Score: 0 08/01/19 2:12 PM CDT documented as of this encounter Care Teams Dairy Quality Assurance Officer Relationship Specialty Start Date End Date Pankaj Rosenberg MD [address] [place] [address] PCP - General INTERNAL MEDICINE 06/15/21 documented as of this encounter
--- OUTSIDE RECORDS SUMMARY | 2024-05-13 10:47 | XMS_ITS | Encounter Summary ---
Author Organization [facility] Address [address] [place] [address]. [place], [place] [address] [place] [address] Care Team Providers Care Cigar Packer And Shader Name Role Phone Pankaj Rosenberg MD Primary Care Provider Reason for Visit * Reason Onset Date Comments Information 02/03/2023 Encounter Details Date Type Department Care Team (Late st Contact Info) Description 02/03/2023 Telephone [facility] Medical Group Multispecialty Care - [place] [address] [address] [address] [place] [address] Pankaj Rosenberg MD [address] [place] [address] 157 [place] [address] Information Social History Tobacco Use [...] file Legal Sex Male 2:58 PM HOME HELP AIDE Gender Identity Male 07/13/2021 5:19 AM HOME HELP AIDE Sexual Orientation Straight 07/13/2021 5: 19 AM HOME HELP AIDE documented as of this encounter Progress Notes * Isela Daily MA - 02/04/2023 11:23 AM CDT Faxed over office notes from Dr Rosenberg and Dr Andino to [facility] * Artur Cruz - 02/03/2023 3:15 PM CDT Reece called needing recent office notes pls fax to [phone]. documented in this encounter Plan of Treatment Upcoming Encounters Date Type Department Care Team (Late st Contact Info) Description 05/15/2024 3:30 PM HOME HELP AIDE Appointment [facility] [place] [address] Pankaj Rosenberg MD [address] [place] [address] 05/25/2024 12:45 PM HOME HELP AIDE Office Visit [facility] Physical Therapy [address] [place] [address] Pankaj Rosenberg MD [address] [place] [address] Maya Magaña, [place] [address] 05/30/2024 3:40 PM HOME HELP AIDE Office Visit [facility] - [address] [address] [address] [place] [address] Pankaj Rosenberg MD [facility] [address] 06/20/2024 3:40 PM HOME HELP AIDE [facility]medicine [facility] - [place] [address] [address] [place] [address] Pankaj Rosenberg MD [address] [place] [address] [place] [address] 06/21/2024 1:00 PM HOME HELP AIDE Office Visit [facility] Orthopedic & Sports Medicine - [place] [address] [place] [address] Jose Ratliff MD [address] [address] [place] [address] 03/27/2025 1:00 PM HOME HELP AIDE Office Visit [facility] Multispecialty Care - [facility] 3 [facility] [place] [address] Bob Oneal MD [address] [facility] [place] [address] [place] [address] documented as of this encounter Visit Diagnoses Not on filedocumented in this encounter Additional Health Concerns Assessment Noted Time PHQ-9 Depression Total Score: 0 08/01/19 22 2:12 PM CDT documented as of this encounter Care Teams Cigar Packer And Shader Relationship Specialty Start Date End Date Pankaj Rosenberg MD [address] [address] PCP - General INTERNAL MEDICINE 06/15/21 documented as of this encounter
--- OUTSIDE RECORDS SUMMARY | 2024-05-13 10:48 | XMS_ITS | Encounter Summary ---
Author Organization [facility] Address [address] [place] [address]. [place], [place] [address] [place] [address] Care Team Providers Care International Relations Teacher Name Role Phone Pankaj Rosenberg MD Primary Care Provider [phone] Reason for Referral * Consultation/Treatment (Routine) - Closed Specialty Diagnoses / Procedures Referred By Horacio espinoza Referred To Contact GENERAL SURGERY Diagnoses Gallbladder polyp Procedures OFFICE/OUTPT VISIT,NEW,LEVL III OFFICE/OUTPT VISIT,NEW,LEVL IV OFFICE/OUTPT VISIT,NEW,LEVL V OFFICE/OUTPT VISIT,EST,LEVL III OFFICE/OUTPT VISIT,EST,LEVL IV OFFICE/OUTPT VISIT,EST,LEVL V Bernardo Wallace MD Phone: tel: fax: [facility] [address] [place] [address] Phone: tel: fax: Referral ID Status Reason Start Date Expiration Date V isits Requested Visits Authorized [id number] Closed Specialty Services 04/29/2022 04/29/2023 99 99 R TESTER POLYPHASE Reason for Visit * Reason Comments Gallbladder Polyp on gallbladder - Dr. Oneal sent here for it to be removed- had to delay due to having a bowel obstruction with a resection Encounter Details Date Type Department Care Team (Late st Contact Info) Description 04/29/2022 10:40 AM METER TESTER POLYPHASE Office Visit [facility] General Surgery [address], [address] [place] [address] [place] [address] [facility] [address] [place] [address] Gallbladder (Polyp on gallbladder- Dr. Oneal sent here for it to be removed- had to delay due to having a bowel obstruction with a resection) Social History Tobacco Use Types Packs/Day Years Used Date Smoking Tobacco: Never Smokeless Tobacco: Former Snuff, Chew Quit: 08/14/2020 Tobacco Cessation:Counseling Given: Not Answered Comments:counseled by Dr Rosenberg Alcohol Use Standard Drinks/Week Comments Yes 5 (1 standard drink = 0.6 oz pur e alcohol) socially on weekends PHQ-2 Answer Date Recorded PHQ-2 Score - If the patient scores above 3, please move on to questions 3-9 0 03/26/2022 Sex and Gender Information Value Date Recorded Sex Assigned at Not on file Legal Sex Male 2:58 PM METER TESTER POLYPHASE Gender Identity Male 07/13/2021 5:19 AM METER TESTER POLYPHASE Sexual Orientation Straight 07/13/2021 5: 19 AM METER TESTER POLYPHASE COVID-19 Exposure Response Date Recorded In the last 10 days, have yo u been in contact with someone who was confirmed or suspected to have Coronavirus/COVID-19? No / Unsure 04/29/2022 10:26 AM METER TESTER POLYPHASE documented as of this encounter Last Filed Vital Signs Vital Sign Reading Time Taken Comments Blood Pressure 151/96 04/29/2022 10:31 AM METER TESTER POLYPHASE just took his bpmeds Pulse 87 04/29/2022 10:31 AM METER TESTER POLYPHASE Temperature 36.8 ??C (98.3 ??F) 04/29/2022 1 0:31 AM METER TESTER POLYPHASE Respiratory Rate 20 04/29/2022 10:3 1 AM METER TESTER POLYPHASE Oxygen Saturation 98% 04/29/2022 10: 31 AM METER TESTER POLYPHASE Inhaled Oxygen Concentration - - Weight 120.6 kg (265 lb 12.8 oz) 04/29/2022 10:31 AM METER TESTER POLYPHASE Height 180.3 cm (5' 11 ) 04/29/2022 10: 31 AM METER TESTER POLYPHASE Body Mass Index 37.07 04/29/2022 10:31 AM METER TESTER POLYPHASE documented in this encounter Progress Notes * Bernardo Wallace MD - 04/29/2022 10:40 AM CST Reason for Visit: Gallbladder (Polyp on gallbladder- Dr. Oneal sent here for it to be removed- had to delay due to having a bowel obstruction with a resection) History of Present Illness: Patient is a 27 y/o WM Who presents with gallbladder polyps which have increased in size. He has PMHx of gastroschisis , s/p repair as an infant. He was Found to have Gallbladder polyps. F/u US showed increase in size. Before he could be Reevaluated For laparoscopic cholecystectomy, he developed a small bowel obstruction. On 09/17/21 He underwent an exploratory laparotomy , Small bowel Resection for small bowel obstruction' At [facility]. Surgeon at the time elected not to remove his gallbladder. He now presents for gallbladder polyps. Surgeon at the time of his laparotomy Told him he though he could get it out laparoscopically. Gallbladder ultrasound 12/17/20 showed a stable 0.6 cm polyp , US on 08/18/21 Showed polyp had increased in size to 7.8 x 6.3x 8.[address] Oneal ( GI) [place] [facility] needed to be removed. ROS: Review of Systems All other systems reviewed and are negative. Medications: Current Outpatient Medications: ??? Alcohol Swabs (ALCOHOL WIPES) 70 % Pads, USE 1 SWAB TO CLEAN SKIN TWICE DAILY BEFORE TESTING, Disp: , Rfl: ??? amLODIPine (NORVASC) 10 MG tablet, Take 1 tablet (10 mg total) by mouth daily., Disp: 90 tablet, Rfl: 1 ??? Blood Glucose Monitoring Suppl (ONETOUCH VERIO REFLECT) w/Device Kit, 1 Units by Does not applyroute 2 (two) times daily., Disp: , Rfl: ??? CPAP DEVICE, DME,, Use daily when sleeping or taking a nap., Disp: 1 Device, Rfl: 0 ??? Lancets (ONETOUCH DELICA PLUS [id number]) [facility], USE 1 LANCET TO PRICK FINGER TWICE DAILY BEFORE TESTING, Disp: , Rfl: ??? lisinopril (PRINIVIL) 10 MG tablet, Take 1 tablet (10 mg total) by mouth daily., Disp: 90 tablet, Rfl: 1 ??? montelukast (SINGULAIR) 10 MG tablet, TAKE 1 TABLET(10 MG) BY MOUTH EVERY NIGHT AT BEDTIME, Disp: 30 tablet, Rfl: 3 ??? omeprazole (PRILOSEC) 40 MG capsule, Take 1 capsule (40 mg total) by mouth daily as needed., Disp: 90 capsule, Rfl: 1 ??? pravastatin (PRAVACHOL) 40 MG tablet, Take 1 tablet (40 mg total) by mouth nightly at bedtime.,Disp: 90 tablet, Rfl: 1 ??? SITagliptin (JANUVIA) 25 mg Tab, Take 1 tablet (25 mg total) by mouth daily., Disp: 30 tablet, Rfl: 5 ??? triamcinolone acetonide 55 MCG/ACT nasal inhaler, , Disp: , Rfl: ??? TRUEplus Lancets 33G Misc, , Disp: , Rfl: ??? AZELASTINE 0.1 % nasal spray, USE 1 SPRAY IN EACH NOSTRIL TWICE DAILY DIRECTED, Disp: 90 mL,Rfl: 1 ??? cetirizine 5 MG chewable tablet, Chew 5 mg by mouth daily., Disp: , Rfl: ??? lidocaine 5 %, Place 1 patch onto the skin daily., Disp: , Rfl: ??? polyethylene glycol 17 GM/SCOOP powder, Take 17 g by mouth daily., Disp: , Rfl: ??? SUCRALFATE 1 G tablet, TAKE 1 TABLET(1 GRAM) BY MOUTH THREE TIMES DAILY BEFORE MEALS, Disp: 120tablet, Rfl: 0 No Known Allergies Past Medical History: Diagnosis Date ??? Allergy ??? Arthrogryposis ??? Diabetes mellitus (CMS/HCC) ??? Gastroschisis ??? Hyperlipidemia ??? Hypertension ??? Obstructive sleep apnea Past Surgical History: Procedure Laterality Date ??? 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 COLONOSCOPY N/A 08/26/2021 COLONOSCOPY WITH POLYPECTOMY performed by Bob Oneal MD at [facility] OR ??? SEPTOPLASTY ??? SMALL INTESTINE SURGERY Social History Socioeconomic History ??? Marital status: [...] Drug use: Never ??? Sexual activity: Yes Family History Problem Relation Name Age of Onset ??? No Known Problems Mother ??? No Known Problems Father ??? Heart Disease Maternal Grandfather ??? Heart Disease Paternal Grandfather ??? Thyroid Disease Paternal Grandfather Family Status Relation Name Status ??? Mother Alive ??? Father ??? MGF (Not Specified) ??? PGF (Not Specified) Physical Exam Abdominal: General: Abdomen is flat. Bowel sounds are normal. There is no distension. Palpations: Abdomen is soft. There is no mass. Tenderness: There is no abdominal tenderness. There is no guarding or rebound. Hernia: No hernia is present. Comments: Large well healed midline incision Filed Vitals: 04/29/22 1031 BP: (!) 151/96 Pulse: 87 Resp: 20 Temp: 98.3 ??F (36.8 ??C) TempSrc: Core SpO2: 98% Weight: 120.6 kg (265 lb 12.8 oz) Height: 5' 11 (1.803 m) PainSc: 0 (0-10 Scale) Diagnoses/Impression: 1. Gallbladder polyp Ambulatory referral to General Surgery (OTHER) Recommendations and Plan: Would recommend patient return to his surgeon at [facility]. Reviewed and updated this visit by provider: Libby WALLACE Referring Provider: Pankaj Rosenberg MD PCP: PANKAJ ROSENBERG MD R TESTER POLYPHASE documented in this encounter Plan of Treatment Upcoming Encounters Date Type Department Care Team (Late st Contact Info) Description 05/15/2024 3:30 PM METER TESTER POLYPHASE Appointment [facility] [address] [facility] [place] [place] [address] Pankaj Rosenberg MD [address] [address] 05/25/2024 12:45 PM METER TESTER POLYPHASE Office Visit [facility] Physical Therapy [address] [address] Pankaj Rosenberg MD [address] [address] Maya Magaña, [place] [address] 05/30/2024 3:40 PM METER TESTER POLYPHASE Office Visit [facility]pecialty Care - [place] [address] [address] [place] [address] Pankaj Rosenberg MD [address] [address] 06/20/2024 3:40 PM METER TESTER POLYPHASE [facility] [place] [address] [address] [place] [address] Pankaj Rosenberg MD [address] [address] 06/21/2024 1:00 PM METER TESTER POLYPHASE Office Visit [facility] - [place] [address] [place] [address] Jose Ratliff MD [address] [address] 03/27/2025 1:00 PM METER TESTER POLYPHASE Office Visit [facility]pecialty Care - [facility] [address] [facility] [place] [address] Bob Oneal MD 3 [facility] [address] [place] [address] Scheduled Referrals Name Type Priority Associated Diagnoses Orde r Schedule Ambulatory referral to General Surgery (OTHER) Referral Routine Gallbladder polyp Ordered: 04/29/2022 documented as of this encounter Visit Diagnoses Diagnosis Gallbladder polyp- Primary Cholesterolosis of gallbladder documented in this encounter Additional Health Concerns Assessment Noted Time PHQ-9 Depression Total Score: 0 08/01/19 2:12 PM CDT documented as of this encounter Care Teams International Relations Teacher Relationship Specialty Start Date End Date Pankaj Rosenberg MD [facility] [address] [address] PCP - General INTERNAL MEDICINE 06/15/21 documented as of this encounter
--- OUTSIDE RECORDS SUMMARY | 2024-05-13 10:48 | XMS_ITS | Encounter Summary ---
Author Organization [facility] Address [address] [place] [address]. [place], [place] [address] [place] [address] Care Team Providers Care Traffic Monitor Specialist Name Role Phone Pankaj Rosenberg MD Primary Care Provider [phone] Reason for Visit * Reason Comments Obstructive Sleep Apnea CPAP * Consultation (Routine) - Closed Specialty Diagnoses / Procedures Referred By Contact Referred To Contact SLEEP & RESPIRATORY CARE Diagnoses KARRIE (obstructive sleep apnea) Pankaj Rosenberg MD [address] [place] [address] Phone: tel: fax: [facility] [place] [address] Phone: tel: fax: Referral ID Status Reason Start Date Expiration Date V isits Requested Visits Authorized [id number] Closed Specialty Services 08/21/2021 09/20/2022 99 99 Encounter Details Date Type Department Care Team (Late st Contact Info) Description 03/26/2022 10:20 AM COMBINATION WELDER APPRENTICE Office Visit [facility] [place] [address] Milton Andino MD [address] [place] [address] Obstructive Sleep Apnea (CPAP) Social History Tobacco Use Types Packs/Day Years Used Date Smoking Tobacco: Never Smokeless Tobacco: Former Snuff, Chew Quit: 08/14/2020 Tobacco Cessation:Counseling Given: Yes Comments:counseled by Dr Rosenberg Alcohol Use Standard Drinks/Week Comments Yes 5 (1 standard drink = 0.6 oz pur e alcohol) PHQ-2 Answer Date Recorded PHQ-2 Score - If the patient scores above 3, please move on to questions 3-9 0 03/26/2022 Sex and Gender Information Value Date Recorded Sex Assigned at Not on file Legal Sex Male 2:58 PM COMBINATION WELDER APPRENTICE Gender Identity Male 07/13/2021 5:19 AM COMBINATION WELDER APPRENTICE Sexual Orientation Straight 07/13/2021 5: 19 AM COMBINATION WELDER APPRENTICE COVID-19 Exposure Response Date Recorded In the last 10 days, have yo u been in contact with someone who was confirmed or suspected to have Coronavirus/COVID-19? No / Unsure 03/26/2022 10:17 AM COMBINATION WELDER APPRENTICE documented as of this encounter Last Filed Vital Signs Vital Sign Reading Time Taken Comments Blood Pressure 127/83 03/26/2022 10:20 AM COMBINATION WELDER APPRENTICE Pulse 87 03/26/2022 10:20 AM COMBINATION WELDER APPRENTICE Temperature 37.4 ??C (99.4 ??F) 03/26/2022 10:[address] Respiratory Rate 12 03/26/2022 10:20 AM COMBINATION WELDER APPRENTICE Oxygen Saturation 98% 03/26/2022 10:20 AM COMBINATION WELDER APPRENTICE Inhaled Oxygen Concentration - - Weight 117.9 kg (260 lb) 03/26/2022 10:20 AM COMBINATION WELDER APPRENTICE Height 180.3 cm (5' 11 ) 03/26/2022 10:20 AM COMBINATION WELDER APPRENTICE Body Mass Index 36.26 03/26/2022 10:20 AM COMBINATION WELDER APPRENTICE documented in this encounter Patient Instructions * Patient Instructions* Milton Andino MD - 03/26/2022 10:20 AM COMBINATION WELDER APPRENTICE - Continue using CPAP every single night - Use distilled water - Change the mask, straps, tubing every 3 to 6 months - Work on weight loss - Follow-up in 1 year, sooner if needed INATION WELDER APPRENTICE documented in this encounter Progress Notes * Milton Andino MD - 03/26/2022 10:20 AM CST [facility] PULMONARY [facility]IC[facility] History Chief Complaint Patient presents with ??? Obstructive Sleep Apnea CPAP Referring provider: Pankaj Rosenberg MD Chuck Barlow is a 26-year-old male with a past medical history of obstructive sleep apnea, diabetes mellitus, hypertension, hyperlipidemia who is referred to pulmonary clinic for evaluation of obstructive sleep apnea. He was diagnosed with obstructive sleep apnea several months ago and started on CPAP. He goes to bed between 11 and 12 AM. He wakes up for the day between 9 and 10 AM. He does not typically feel refreshed in the morning. Unsure if he feels any better with the CPAP. He will not doze off during the day but occasionally feels like he needs to take a nap. He has never fallen asleep driving. Endorses snoring and snort arousals prior to CPAP. No witnessed apnea. Was noting issues with headaches, may be slightly better since starting CPAP. Notes chronic sinusitis and allergies. No smoking history, previously smokeless tobacco. Works from home for a [employer]. Past Medical History: Diagnosis Date ??? Allergy ??? Arthrogryposis ??? Diabetes mellitus (CMS/HCC) ??? Gastroschisis ??? Hyperlipidemia ??? Hypertension ??? Obstructive sleep apnea Past Surgical History: Procedure Laterality Date ??? 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 COLONOSCOPY N/A 08/26/2021 COLONOSCOPY WITH POLYPECTOMY performed by Bob Oneal MD at [facility] OR ??? SEPTOPLASTY ??? SMALL INTESTINE SURGERY Social History Tobacco Use ??? Smoking status: Never Smoker ??? Smokeless tobacco: Former User Types: Snuff, Chew Quit date: 08/14/2020 ??? Tobacco comment: counseled by Dr Rosenberg Vaping Use ??? Vaping Use: Never used Substance Use Topics ??? Alcohol use: Yes Alcohol/week: 5.0 standard drinks Types: 3 Cans of beer per week ??? Drug use: Never Family History Problem Relation Name Age of Onset ??? No Known Problems Mother ??? No Known Problems Father ??? Heart Disease Maternal Grandfather ??? Heart Disease Paternal Grandfather ??? Thyroid Disease Paternal Grandfather Current Outpatient Medications Medication Sig Dispense Refill ??? Alcohol Swabs (ALCOHOL WIPES) 70 % Pads USE 1 SWAB TO CLEAN SKIN TWICE DAILY BEFORE TESTING ??? amLODIPine 10 MG tablet Take 1 tablet (10 mg total) by mouth daily. 90 tablet 1 ??? AZELASTINE 0.1 % nasal spray USE 1 SPRAY IN EACH NOSTRIL TWICE DAILY DIRECTED 90 mL 1 ??? cetirizine 5 MG chewable tablet Chew 5 mg by mouth daily. ??? CPAP DEVICE, DME, Use daily when sleeping or taking a nap. 1 Device 0 ??? lidocaine 5 % Place 1 patch onto the skin daily. ??? lisinopril 10 MG tablet Take 1 tablet (10 mg total) by mouth daily. 90 tablet 1 ??? montelukast (SINGULAIR) 10 MG tablet TAKE 1 TABLET(10 MG) BY MOUTH EVERY NIGHT AT BEDTIME 30 tablet 3 ??? omeprazole 40 MG capsule Take 1 capsule (40 mg total) by mouth daily. 30 capsule 4 ??? polyethylene glycol 17 GM/SCOOP powder Take 17 g by mouth daily. ??? pravastatin 40 MG tablet Take 1 tablet (40 [...] MCG/ACT nasal inhaler ??? TRUEplus Lancets 33G [facility] ??? Blood Glucose Monitoring Suppl (ONETOUCH VERIO REFLECT) w/Device Kit 1 Units by Does not apply route 2 (two) times daily. ??? Lancets (ONETOUCH DELICA PLUS [id number]) [facility] USE 1 LANCET TO PRICK FINGER TWICE DAILY BEFORE TESTING No current facility-administered medications for this visit. No Known Allergies Immunization History Administered Date(s) Administered ??? DTaP-IPV [...] 08/11/2007, 08/25/2013 ??? Varicella (Varivax) 04/27/1995, 08/11/2007 Review of Systems Constitutional: Negative for chills, fever and weight loss. HENT: Positive for congestion. Negative for ear pain, hearing loss and nosebleeds. Eyes: Negative for blurred vision, double vision and redness. Respiratory: Negative for cough, hemoptysis, sputum production, shortness of breath and wheezing. Cardiovascular: Negative for chest pain, palpitations, orthopnea, leg swelling and PND. Gastrointestinal: Negative for heartburn, nausea and vomiting. Genitourinary: Negative for dysuria, frequency and urgency. Musculoskeletal: Negative for myalgias. Skin: Negative for rash. Neurological: Negative for dizziness, tingling and headaches. Endo/Heme/Allergies: Does not bruise/bleed easily. Psychiatric/Behavioral: Negative for depression and suicidal ideas. Physical Exam Filed Vitals: 03/26/22 1020 BP: 127/83 Pulse: 87 Resp: 12 Temp: 99.4 ??F (37.4 ??C) TempSrc: Temporal SpO2: 98% Weight: 117.9 kg (260 lb) Height: 5' 11 (1.803 m) Body mass index is 36.26 kg/m??. Physical Exam: General: Alert, pleasant, in NAD Neuro: Alert, appropriate Psych: Affect normal Head: NC, AT EENT: No Sinus tenderness to palpation, mallampati 3 Neck: Supple Lymph: No appreciable cervical lymphadenopathy Respiratory: non-labored, ctab, no wheezes/crackles Cardiovascular: s1,s2, rrr, no audible murmur GI: non-distended, bs+ Musc: Bilateral wrist ROM wnl Ext: no edema, no clubbing Skin: No visible rashes, Yes visible tattoos Sleep Studies: 08/06/2021 AHI 46.1/h Pertinent Labs Reviewed CPAP compliance 03/26/2022 reviewed. 77% use over the last 30 days. Average time 7 hours and 6 minutes. Pressure set between 4 and 20 cm H2O. AHI 2.1/h Assessment 1. Severe obstructive sleep apnea 2. Obesity 3. Hypertension Plan - Continue auto CPAP 4 to 20 cm H2O. He demonstrates good compliance and will continue to benefit from use - Change the mask, straps, tubing every 3 to 6 months - Advised use of distilled water - Advised efforts at weight loss Return in about 1 year (around 03/26/2023). iMlton Andino MD INATION WELDER APPRENTICE documented in this encounter Plan of Treatment Upcoming Encounters Date Type Department Care Team (Late st Contact Info) Description 05/15/2024 3:30 PM COMBINATION WELDER APPRENTICE Appointment [facility] [place] [address] Pankaj Rosenberg MD [address] [address] 05/25/2024 12:45 PM COMBINATION WELDER APPRENTICE Office Visit [facility] Physical Therapy [facility] access hospital[address] [address] Pankaj Rosenberg MD [address] [address] Maya Magaña, [place] [address] 05/30/2024 3:40 PM COMBINATION WELDER APPRENTICE Office Visit [facility] Multispecialty [facility] - [place] [address] [address] [place] [address] Pankaj Rosenberg MD Critical access hospital8 [address] [address] 06/20/2024 3:40 PM COMBINATION WELDER APPRENTICE Telemedicine [facility] Multispec[facility]ty [facility] [place] [address] [address] [place] [address] Pankaj Rosenberg MD [address] [address] 06/21/2024 1:00 PM COMBINATION WELDER APPRENTICE Office Visit [facility] - [place] [address] [place] [address] Jose Ratliff MD [address] [address] [place] [address] 03/27/2025 1:00 PM COMBINATION WELDER APPRENTICE Office Visit [facility] - [facility] [address] [facility] [address] [place] [address] Bob Oneal MD [address] [facility] [address] [place] [address] documented as of this encounter Visit Diagnoses Diagnosis KARRIE (obstructive sleep apnea)- Primary Obstructive sleep apnea (adult) (pediatric) Essential hypertension, benign Class 2 obesity due to excess calories without serious comorbidity with body mass index (BMI) of 36.0 to 36.9 in adult documented in this encounter Additional Health Concerns Assessment Noted Time PHQ-9 Depression Total Score: 0 08/01/19 22 2:12 PM CDT documented as of this encounter Care Teams Traffic Monitor Specialist Relationship Specialty Start Date End Date Pankaj Rosenberg MD [address] [facility] [address] [place] [address] PCP - General INTERNAL MEDICINE 06/15/21 documented as of this encounter
--- OUTSIDE RECORDS SUMMARY | 2024-05-13 10:48 | XMS_ITS | Encounter Summary ---
Author Organization [facility] Address [address] [place] [address]. [place], [place] [address] [place] [address] Care Team Providers Care Kiln Operator Name Role Phone Pankaj Rosenberg MD Primary Care Provider [phone] Encounter Details Date Type Department Care Team (Latest Contact Info) Description 03/21/2022 Scan HEALTH INFO SRVCS Scanned, Doc Med [...] on file Legal Sex Male 2:58 PM GEAR CUTTER Gender Identity Male 07/13/2021 5:19 AM GEAR CUTTER Sexual Orientation Straight 07/13/2021 5: 19 AM GEAR CUTTER COVID-19 Exposure Response Date Recorded In the last 10 days, have yo u been in contact with someone who was confirmed or suspected to have Coronavirus/COVID-19? No / Unsure 03/26/2022 10:17 AM GEAR CUTTER documented as of this encounter Plan of Treatment Upcoming Encounters Date Type Department Care Team (Late st Contact Info) Description 05/15/2024 3:30 PM GEAR C[address] App[address] [facility] [place] [address] Pankaj Rosenberg MD [address] [place] [address] [address] [place] [address] 05/25/2024 12:45 PM GEAR CUTTER Office Visit [facility] Physical Therapy [facility] [address] [address] Pankaj Rosenberg MD [address] [address] Maya Magaña, [place] [address] 05/30/2024 3:40 PM GEAR CUTTER Office Visit [facility] Medical [facility] [place] [facility] [place] [address] [address] [place] [address] Pankaj Rosenberg MD [address] [address] 06/20/2024 3:40 PM GEAR CUTTER Telemedicine [facility] [place] [facility] - [place] [address] [address] [place] [address] Pankaj Rosenberg MD [address] [address] 06/21/2024 1:00 PM GEAR CUTTER Office Visit [facility] Medical [facility] - [place] [address] [place] [address] Jose Ratliff MD [address] [address] [place] [address] 03/27/2025 1:00 PM GEAR CUTTER Office Visit [facility] Medical Group Multispecialty Care - [facility] 3 [facility] [address] [place] [address] Bob Oneal MD 3 [facility] [address] [place] [address] documented as of this encounter Visit Diagnoses Not on filedocumented in this encounter Additional Health Concerns Assessment Noted Time PHQ-9 Depression Total Score: 0 08/01/19 22 2:12 PM CDT documented as of this encounter Care Teams Kiln Operator Relationship Specialty Start Date End Date Pankaj Rosenberg MD [address] [address] PCP - General INTERNAL MEDICINE 06/15/21 documented as of this encounter
--- OUTSIDE RECORDS SUMMARY | 2024-05-13 10:48 | XMS_ITS | Encounter Summary ---
Author Organization [facility] Address [address] [place] [address]. [place], [place] [address] [place] [address] Care Team Providers Care Technology Methodology Consultant Name Role Phone Pankaj Rosenberg MD Primary Care Provider [phone] Reason for Visit * Reason Comments Hospital Follow Up Pt was in the hospit al for a partial obstruction. Pt was a [facility] hospital Encounter Details Date Type Department Care Team (Latest Contact Info) Description 04/06/2022 11:20 AM SIGNALING PROJECT ENGINEER Office Visit [facility] Medical Group Multispecialty Care - [address] [place], [place] [id number] Pankaj Rosenberg MD [address] [place] [address] 157 [place] [address] Hospital Follow Up (Pt was in the hospital for a partial obstruction. Pt was a [facility] hospital) Social History Tobacco Use Types Packs/Day Years [...] on file Legal Sex Male 2:58 PM SIGNALING PROJECT ENGINEER Gender Identity Male 07/13/2021 5:19 AM SIGNALING PROJECT ENGINEER Sexual Orientation Straight 07/13/2021 5: 19 AM SIGNALING PROJECT ENGINEER COVID-19 Exposure Response Date Recorded In the last 10 days, have srinivasan choi been in contact with someone who was confirmed or suspected to have Coronavirus/COVID-19? No / Unsure 04/28/2022 7:22 AM SIGNALING PROJECT ENGINEER documented as of this encounter Last Filed Vital Signs Vital Sign Reading Time Taken Comments Blood Pressure 138/89 04/06/2022 11:44 AM SIGNALING PROJECT ENGINEER Pulse 80 04/06/2022 11:21 AM SIGNALING PROJECT ENGINEER Temperature 37.2 ??C (98.9 ??F) 04/06/2022 1 1:21 AM SIGNALING PROJECT ENGINEER Respiratory Rate 18 04/06/2022 11:2 1 AM SIGNALING PROJECT ENGINEER Oxygen Saturation 97% 04/06/2022 11: 21 AM SIGNALING PROJECT ENGINEER Inhaled Oxygen Concentration - - Weight 118.5 kg (261 lb 3.2 oz) 022 11:21 AM SIGNALING PROJECT ENGINEER Height 180.3 cm (5' 11 ) 04/06/2022 11: 21 AM SIGNALING PROJECT ENGINEER Body Mass Index 36.43 04/06/2022 11:21 AM SIGNALING PROJECT ENGINEER documented in this encounter Patient Instructions * Patient Instructions* Pankaj Rosenberg MD - 04/06/2022 11:20 AM SIGNALING PROJECT ENGINEER Please follow up with your surgeon for the gall bladder polyp: please call [phone] to follow up. Bernardo Pedraza MD - SURGERY Priority: Routine Type: Surgical Visits Requested: 99 Decision Date: 09/09/2021 Start Date: 08/26/2021 Expiration Date: 09/26/2022 [facility] Gen Surg ALING PROJECT ENGINEER ALING PROJECT ENGINEER * Attachments The following attachments cannot be sent through Care Everywhere. * Constipation, Adult ED (Uruguayan) * Lowering Your Risk of High Blood Pressure ([place]ruguayan) documented in this encounter Progress Notes * Pankaj Rosenberg MD - 04/06/2022 11:20 AM CSTSummary: Hospital follow-up visit notes Images from the original note were not included. Internal Medicine Outpatient Progress Note CC: Hospital Follow Up (Pt was in the hospital for a partial obstruction. Pt was a [facility] hospital) HPI: Chuck Barlow is a 26-year-old male who presents for hospital follow-up after being admitted at [facility] after presenting with acute abdominal pain concerning for partial small bowel obstruction. 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 He presented to the hospital on 03/17/2022 and was discharged on 03/21/2022. Patient was managed with pain medication, IV fluids and NG tube with resolution of symptoms. Surgery was consulted however no surgical interventions carried out. Patient had a large bowel movement with complete resolution of symptoms prior to discharge. He has since resumed his blood pressure medications-a mlodipine 10 mg daily with lisinopril 10 mg daily and Januvia 25 mg daily. He is also on pravastatin 40 mg at bedtime and omeprazole 40 mg daily to help with reflux symptoms. Not on any opioid. Currently reports his symptoms are better since discharge. He is currently seeing Dr Andino for his obstructive sleep apnea. He is concerned about his energy level. He tells me has been using his CPAP as directed. His BMI is currently 36.43 kg/m??. Patient tells me he is not actively exercising. We did discuss incorporating active exercise into his regimen. Denies any recent concerns for any infection or insect bites. He tells me this is longstanding. He usually does deer hunting. No fever or chills. Problem List Patient Active Problem List Diagnosis ??? Mixed [...] exploratory laparotomy ??? S/P small bowel resection Past Medical History: Diagnosis Date ??? Allergy ??? Arthrogryposis ??? Diabetes mellitus (CMS/HCC) ??? Gastroschisis ??? Hyperlipidemia ??? Hypertension ??? Obstructive sleep apnea Past Surgical History: Procedure Laterality Date ??? 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 COLONOSCOPY N/A 08/26/2021 COLONOSCOPY WITH POLYPECTOMY performed by Bob Oneal MD at [facility] OR ??? SEPTOPLASTY ??? SMALL INTESTINE SURGERY Family History Problem Relation Name Age of Onset ??? No Known Problems Mother ??? No Known Problems Father ??? Heart Disease Maternal Grandfather ??? Heart Disease Paternal Grandfather ??? Thyroid Disease Paternal Grandfather Social History Tobacco Use ??? Smoking status: Never ??? Smokeless tobacco: Former Types: Snuff, Chew Quit date: 08/14/2020 ??? Tobacco comments: counseled by Dr Rosenberg Vaping Use ??? Vaping Use: Never used Substance Use Topics ??? Alcohol use: Yes Alcohol/week: 5.0 standard drinks Types: 3 Cans of beer per week ??? Drug use: Never Medications: Outpatient Medications Marked as Taking for the 04/06/22 encounter (Office Visit) with Pankaj Rosenberg MD Medication Sig Dispense Refill ??? Alcohol Swabs (ALCOHOL WIPES) 70 % Pads USE 1 SWAB TO CLEAN SKIN TWICE DAILY BEFORE TESTING ??? amLODIPine (NORVASC) 10 MG tablet Take 1 tablet (10 mg total) by mouth daily. 90 tablet 1 ??? AZELASTINE 0.1 % nasal spray USE 1 SPRAY IN EACH NOSTRIL TWICE DAILY DIRECTED 90 mL 1 ??? Blood Glucose Monitoring Suppl (ihijiTOUCH VERIO REFLECT) w/Device Kit 1 Units by Does not apply route 2 (two) times daily. ??? cetirizine 5 MG chewable tablet Chew 5 mg by mouth daily. ??? CPAP DEVICE, DME, Use daily when sleeping or taking a nap. 1 Device 0 ??? Lancets (ihijiTOUCH DELICA PLUS [id number]) [facility] USE 1 LANCET TO PRICK FINGER TWICE DAILY BEFORE TESTING ??? lidocaine 5 % Place 1 patch onto the skin daily. ??? lisinopril (PRINIVIL) 10 MG tablet Take 1 tablet (10 mg total) by mouth daily. 90 tablet 1 ??? montelukast (SINGULAIR) 10 MG tablet TAKE 1 TABLET(10 MG) BY MOUTH EVERY NIGHT AT BEDTIME 30 tablet 3 ??? omeprazole (PRILOSEC) 40 MG capsule Take [...] MCG/ACT nasal inhaler ??? TRUEplus Lancets 33G Misc Allergies: No Known Allergies Review of Systems Constitutional: Negative for chills, diaphoresis, fever, malaise/fatigue and weight loss. HENT: Negative. Eyes: Negative. Respiratory: Negative. Cardiovascular: Negative for chest pain, palpitations, orthopnea, claudication, leg swelling and PND. Gastrointestinal: Negative. Genitourinary: Negative. Musculoskeletal: Negative. Neurological: Negative. Psychiatric/Behavioral: Negative. Objective: Filed Vitals: 04/06/22 1121 04/06/22 1144 BP: (!) 146/89 138/89 Pulse: 80 Resp: 18 Temp: 98.9 ??F (37.2 ??C) TempSrc: Temporal SpO2: 97% Weight: 118.5 kg (261 lb 3.2 oz) Height: 5' 11 (1.803 m) Body mass index is 36.43 kg/m??. General alert, cooperative, no distress HEENT [...] Encounter Diagnose(s) ICD-10-CM ICD-9-CM SNOMED CT(R) 1. Partial small bowel obstruction (CMS/HCC) K56.600 560.9 PARTIAL OBSTRUCTION OF SMALL BOWEL 2. Type 2 diabetes mellitus with hyperglycemia, without long-term current use of insulin (CMS/HCC) E11.65 250.00 TYPE 2 DIABETES MELLITUS SITagliptin (JANUVIA) 25 mg Tab 790.29 3. Hypertension associated with type 2 diabetes mellitus (CMS/HCC) E11.59 250.80 HYPERTENSIVE DISORDER amLODIPine (NORVASC) 10 MG tablet I15.2 401.9 lisinopril (PRINIVIL) 10 MG tablet 4. Hyperlipidemia due to type 2 diabetes mellitus (CMS/HCC) E11.69 250.80 HYPERLIPIDEMIA DUE TO TYPE 2 DIABETES MELLITUS pravastatin (PRAVACHOL) 40 MG tablet E78.5 272.4 5. History of gastroschisis Z87.761 V13.67 HISTORY OF GASTROSCHISIS 6. Gastroesophageal reflux disease without esophagitis K21.9 530.81 GASTROESOPHAGEAL REFLUX DISEASEWITHOUT ESOPHAGITIS omeprazole (PRILOSEC) 40 MG capsule 7. Chronic fatigue R53.82 780.79 FATIGUE TESTOSTERONE, TOTAL LYME DISEASE ANTIBODY 8. Mixed hyperlipidemia E78.2 272.2 MIXED HYPERLIPIDEMIA pravastatin (PRAVACHOL) 40 MG tablet 9. Essential hypertension, benign I10 401.1 BENIGN ESSENTIAL HYPERTENSION amLODIPine (NORVASC) 10 MG tablet lisinopril (PRINIVIL) 10 MG tablet 1. Partial small bowel obstruction (CMS/HCC) - resolved; noted history of gastroschisis s/p surgery during his infancy - patient encouraged to continue to maintain adequate hydration and incorporate fiber in his diet 2. Type 2 diabetes mellitus with hyperglycemia, without long-term current use of insulin (CMS/HCC) - controlled - continue SITagliptin (JANUVIA) 25 mg Tab; Take 1 tablet (25 mg total) by mouth daily. Dispense: 30 tablet; Refill: 5 3. Hypertension associated with type 2 diabetes mellitus (CMS/HCC) - Controlled; he took his medication about 2 hours prior to this visit - Patient currently controlled on current treatment [...] daily. Dispense: 90 tablet; Refill: 1 4. Hyperlipidemia due to type 2 diabetes mellitus (CMS/HCC) - continue pravastatin (PRAVACHOL) 40 MG tablet; Take 1 tablet (40 mg total) by mouth nightly at bedtime. Dispense: 90 tablet; Refill: 1 - recently liver numbers looking good 5. History of gastroschisis - noted and stable 6. Gastroesophageal reflux disease without esophagitis - doing well - change to using omeprazole (PRILOSEC) 40 MG capsule; Take 1 capsule (40 mg total) by mouth daily as needed. Dispense: 90 capsule; Refill: 1 7. Chronic fatigue - TESTOSTERONE, TOTAL; Future - LYME DISEASE ANTIBODY; Future 8. Mixed hyperlipidemia -continue pravastatin (PRAVACHOL) 40 MG tablet; Take 1 tablet (40 mg total) by mouth nightly at bedtime. Dispense: 90 tablet; Refill: 1 9. Essential hypertension, benign - controlled - Patient [...] by mouth daily. Dispense:90 tablet; Refill: 1 -continue lisinopril (PRINIVIL) 10 MG tablet; Take 1 tablet (10 mg total) by mouth daily. Dispense:90 tablet; Refill: 1 Counseling given: Yes Tobacco comments: counseled by Dr Rosenberg I spent 40 minutes today reviewing the patient's medical record, obtaining history, performing an exam, ordering medications, tests, and/or procedures, documenting in the medical record, referring and/or communicating with other health care providers, counseling and educating the patient, reviewingand communicating test results and coordinating care. Side effects and less common but more severe adverse effects of recommended medical therapies were explained to the patient. Follow up office visit in 2 months. Requested MyChart or telephone follow up prn if symptoms change, worsen, or persist, or if side effect of treatment is experienced. DRAGON: This dictation was at least in part performed using [employer] and there may be some inherent flaws in this bench assembler due to the nature of this program. Pankaj Rosenberg MD Internal Medicine [facility], [facility]. ALING PROJECT ENGINEER documented in this encounter Plan of Treatment Upcoming Encounters Date Type Department Care Team (Late st Contact Info) Description 05/15/2024 3:30 PM SIGNALING PROJECT [place] [address] Pankaj Rosenberg MD [address] [place] [address] 05/25/2024 12:45 PM SIGNALING PROJECT ENGINEER Office Visit [facility] Physical Therapy [address] [place] [address] Panakj Rosenberg MD [address] [place] [address] Maya Magaña, [place] [address] 05/30/2024 3:40 PM SIGNALING PROJECT ENGINEER Office Visit [facility] Medical Group Multispecialty Care - [place] [address] [address] [place] [address] Pankaj Rosenberg MD 1188 [facility] 157 [place] [address] 06/20/2024 3:40 PM SIGNALING PROJECT ENGINEER Telemedicine [facility] Multispecialty Care - [place] [address] [facility] [address] [place] [address] Pankaj Rosenberg MD 1188 [facility] 157 [place] [address] 06/21/2024 1:00 PM SIGNALING PROJECT ENGINEER Office Visit [facility] Orthopedic & Sports Medicine - [place] [address] [place] [address] Jose Ratliff MD 670 [facility] [address] [place] [address] 03/27/2025 1:00 PM SIGNALING PROJECT ENGINEER Office Visit [facility] Multispecialty Care - [facility] 3 [facility] [address] [place] [phone] Bob Oneal MD 3 [facility] [address] [place], [place] [address] documented as of this encounter Results * (ABNORMAL) TESTOSTERONE, TOTAL (04/28/2022 7:41 AM SIGNALING PROJECT ENGINEER) Testosterone: 196.8(L) 197.4 - 669.6 NG/DL 04/28/2022 7:26 PM SIGNALING PROJECT ENGINEER [facility] Comment: ASSAY PERFORMED BY CHEMILUMINESCENCE METHODOLOGY USING SIEMENS CENTAUR XPT REAGENT. PATIENT RESULTS DETERMINED BY ASSAYS USING DIFFERENT MANUFACTURERS FOR METHODS MAY NOT BE COMPARABLE. 04/28/2022 7:41 AM SIGNALING PROJECT ENGINEER Pankaj Rosenberg MD LABORATORY Final Result [facility] [address] [place] [address], [id number] documented in this encounter Visit Diagnoses Diagnosis Partial small bowel obstruction ([facility] HHS/HCC)- Primary Unspecified intestinal obstruction Type 2 diabetes mellitus with hyperglycemia, without long-term current use of insulin ([facility] HHS/HCC) Hypertension associated with type 2 diabetes mellitus ([facility] HHS/HCC) Hyperlipidemia due to type 2 diabetes mellitus ([facility] HHS/HCC) History of gastroschisis Gastroesophageal reflux disease without esophagitis Esophageal reflux Chronic fatigue Other malaise and fatigue Mixed hyperlipidemia Essential hypertension, benign documented in this encounter Additional Health Concerns Assessment Noted Time PHQ-9 Depression Total Score: 0 08/01/19 22 2:12 PM CDT documented as of this encounter Care Teams Technology Methodology Consultant Relationship Specialty Start Date End Date Pankaj Rosenberg MD [address] [facility] [address] [place] [address] PCP - General INTERNAL MEDICINE 06/15/21 documented as of this encounter
--- OUTSIDE RECORDS SUMMARY | 2024-05-13 10:48 | XMS_ITS | Encounter Summary ---
Author Organization [facility] Address [address] [place] [address]. [place], [place] [address] [place] [address] Care Team Providers Care Publishing Manager Name Role Phone Pankaj Rosenberg MD Primary Care Provider [phone] Reason for Visit * Reason Onset Date Comments Referral 03/19/2022 Encounter Details Date Type Department Care Team (Late st Contact Info) Description 03/19/2022 Telephone [facility] Medical Group Multispecialty Care - [place] [address] [address] [place], [place] [phone] Pankaj Rosenberg MD [address] [place] [address] 157 [place] [address] Referral Social History Tobacco Use Types Packs/Day Years Used Date Smoking Tobacco: Never Smokeless Tobacco: Former Snuff, Chew Quit: 08/14/2020 Comments:counseled by Dr Sammie gallardo Alcohol Use Standard Drinks/Week Comments Yes 5 (1 standard drink = 0.6 oz pur e alcohol) PHQ-2 Answer Date Recorded PHQ-2 Score - If the patient scores above 3, please move on to questions 3-9 0 07/31/2021 Sex and Gender Information Value Date Recorded Sex Assigned at Not on file Legal Sex Male 2:58 PM PRESSING MACHINE TENDER Gender Identity Male 07/13/2021 5:19 AM PRESSING MACHINE TENDER Sexual Orientation Straight 07/13/2021 5: 19 AM PRESSING MACHINE TENDER documented as of this encounter Progress Notes * Pankaj Rosenberg MD - 03/19/2022 11:16 PM CDT Please follow up on patient to see if he is discharged from hospital and schedule for hospital follow up thanks. * Pankaj Rosenberg MD - 03/19/2022 11:14 PM CDT Patient is currently on admission at [facility] Patient was admitted on 03/17/2022 after presenting with a1 day history of worsening periumbilical abdominal pain with nausea. Currently on admission. We will follow-up once patient is discharged for TCM visit. Concerns for small bowel obstruction. documented in this encounter Plan of Treatment Upcoming Encounters Date Type Department Care Team (Late st Contact Info) Description 05/15/2024 3:30 PM PRESSING MACHINE TENDER Appointment [facility] [place] [address] Pankaj Rosenberg MD [address] [place] [address] 05/25/2024 12:45 PM PRESSING MACHINE TENDER Office Visit [facility] Physical Therapy [address] [place] [address] Pankaj Rosenberg MD [address] [place] [address] Maya Magaña, [place] [address] 05/30/2024 3:40 PM PRESSING MACHINE TENDER Office Visit [facility] Medical Group Multispecialty Care - [place] [address] [address] [place] [address] Pankaj Rosenberg MD [facility] [address] [address] 06/20/2024 3:40 PM PRESSING MACHINE TENDER Telemedicine [facility] Multispecialty Care - [address] [place] [address] Pankaj Rosenberg MD 1188 [facility] 157 [place] [address] 06/21/2024 1:00 PM PRESSING MACHINE TENDER Office Visit [facility] Orthopedic & Sports Medicine - [place] [address] [place] [address] Jose Ratliff MD 670 [facility] [address] [place] [address] 03/27/2025 1:00 PM PRESSING MACHINE TENDER [facility] 3 [facility] [address] [place] [address] Bob Oneal MD 3 [facility] [address] [place] [address] documented as of this encounter Visit Diagnoses Not on filedocumented in this encounter Additional Health Concerns Assessment Noted Time PHQ-9 Depression Total Score: 0 08/01/19 22 2:12 PM CDT documented as of this encounter Care Teams Publishing Manager Relationship Specialty Start Date End Date Pankaj Rosenberg MD [address] [place] [address] PCP - General INTERNAL MEDICINE 06/15/21 documented as of this encounter
--- OUTSIDE RECORDS SUMMARY | 2024-05-13 10:48 | XMS_ITS | Encounter Summary ---
Author Organization [facility] Address [address] [place] [address]. [place], [place] [address] [place] [address] Care Team Providers Care Stake Setter Name Role Phone Pankaj Rosenberg MD Primary Care Provider [phone] Reason for Visit * Reason Onset Date Comments Follow Up Call 03/21/2022 Encounter Details Date Type Department Care Team (Late st Contact Info) Description 03/21/2022 Telephone [facility] Medical Group Multispecialty Care - [place] [address] [address] [place], [place] [id number] Pankaj Rosenberg MD [address] [place] [address] 157 [place] [address] Follow Up Call Social History [...] on file Legal Sex Male 2:58 PM CONCAVER Gender Identity Male 07/13/2021 5:19 AM CONCAVER Sexual Orientation Straight 07/13/2021 5: 19 AM CONCAVER documented as of this encounter Progress Notes * Pankaj Rosenberg MD - 03/21/2022 8:42 PM CST Patient has been discharged from outside hospital. Please call and schedule for TCM visit and please get outside discharge summary notes. Thanks Pankaj Rosenberg MD Internal Medicine [facility]. AVER documented in this encounter Plan of Treatment Upcoming Encounters Date Type Department Care Team (Late st Contact Info) Description 05/15/2024 3:30 PM CONCAVER Appointment [facility] [place] [address] Pankaj Rosenberg MD [address] [place] [address] 05/25/2024 12:45 PM CONCAVER Office Visit [facility] Physical Therapy [address] [place] [address] Pankaj Rosenberg MD [address] [place] [address] Maya Magaña, [place] [address] 05/30/2024 3:40 PM CONCAVER [facility] [address] [address] Pankaj Rosenberg MD [address] [place] [address] 06/20/2024 3:40 PM CONCAVER Telemedicine [facility] Emergency Department - [address] [address] Pankaj Rosenberg MD [facility] [address] [address] 06/21/2024 1:00 PM CONCAVER Office Visit [facility] Orthopedic & Sports Medicine - [place] [address] [place] [address] Jose Ratliff MD [address] [address] [place] [address] 03/27/2025 1:00 PM CONCAVER Office Visit [facility] Multispecialty Care - [facility] 3 [facility] [address] [place] [address] Bob Oneal MD 3 [facility] [address] [place] [address] documented as of this encounter Visit Diagnoses Not on filedocumented in this encounter Additional Health Concerns Assessment Noted Time PHQ-9 Depression Total Score: 0 08/01/19 22 2:12 PM CDT documented as of this encounter Care Teams Stake Setter Relationship Specialty Start Date End Date Pankaj Rosenberg MD [address] [address] PCP - General INTERNAL MEDICINE 06/15/21 documented as of this encounter
--- OUTSIDE RECORDS SUMMARY | 2024-05-13 10:48 | XMS_ITS | Encounter Summary ---
Author Organization [facility] Address [address] [place] [address]. [place], [place] [address] [place] [address] Care Team Providers Care Supervisor Denture Department Name Role Phone Pankaj Rosenberg MD Primary Care Provider [phone] Reason for Visit * Reason Onset Date Comments Orders 03/25/2022 Encounter Details Date Type Department Care Team (Late st Contact Info) Description 03/25/2022 Telephone [facility] Medical Group Multispecialty Care - [place] [address] [address] [place] [address] Pankaj Rosenberg MD [address] [place] [address] 157 [place] [address] Orders Social History Tobacco Use Types Packs/Day Years [...] on file Legal Sex Male 2:58 PM APPLICATIONS ENGINEER Gender Identity Male 07/13/2021 5:19 AM APPLICATIONS ENGINEER Sexual Orientation Straight 07/13/2021 5: 19 AM APPLICATIONS ENGINEER documented as of this encounter Progress Notes * Pankaj Rosenberg MD - 03/25/2022 8:33 AM CST I received order request from [facility] respiratory care for patient CPAP supplies. Forms filled and faxed to . Pankaj Rosenberg MD Internal Medicine [facility]. ICATIONS ENGINEER documented in this encounter Plan of Treatment Upcoming Encounters Date Type Department Care Team (Late st Contact Info) Description 05/15/2024 3:30 PM APPLICATIONS ENGINEER Appointment [facility] [place] [address] Pankaj Rosenberg MD [address] [place] [address] 05/25/2024 12:45 PM APPLICATIONS ENGINEER Office Visit [facility] Physical Therapy [address] [place] [address] Pankaj Rosenberg MD [address] [place] [address] Maya Magaña, [place] [address] 05/30/2024 3:40 PM APPLICATIONS ENGINEER [facility] [place] [address] [place] [address] Pankaj Rosenberg MD [address] [place] [address] 06/20/2024 3:40 PM APPLICATIONS ENGINEER Telemedicine [facility] - [place] [address] [place] [address] Pankaj Rosenberg MD [facility] [address] [address] 06/21/2024 1:00 PM APPLICATIONS ENGINEER Office Visit [facility] Orthopedic & Sports Medicine - [place] [address] [place] [address] Jose Ratliff MD [address] [address] [place] [address] 03/27/2025 1:00 PM APPLICATIONS ENGINEER Office Visit [facility] Multispecialty Care - [facility] 3 [facility] [address] [place] [address] Bob nOeal MD 3 [facility] [address] [place] [address] documented as of this encounter Visit Diagnoses Not on filedocumented in this encounter Additional Health Concerns Assessment Noted Time PHQ-9 Depression Total Score: 0 08/01/19 22 2:12 PM CDT documented as of this encounter Care Teams Supervisor Denture Department Relationship Specialty Start Date End Date Pankaj Rosenberg MD [address] [address] PCP - General INTERNAL MEDICINE 06/15/21 documented as of this encounter
--- OUTSIDE RECORDS SUMMARY | 2024-05-13 10:48 | XMS_ITS | Encounter Summary ---
Author Organization [facility] Address [address] [place] [address]. [place], [place] [address] [place] [address] Care Team Providers Care Executive Recruiter Name Role Phone Pankaj Rosenberg MD Primary Care Provider [phone] Encounter Details Date Type Department Care Team (Latest Contact Info) Description 04/29/2022 Travel Social History Tobacco Use Types Packs/Day [...] on file Legal Sex Male 2:58 PM FOOD WRITER Gender Identity Male 07/13/2021 5:19 AM FOOD WRITER Sexual Orientation Straight 07/13/2021 5: 19 AM FOOD WRITER COVID-19 Exposure Response Date Recorded In the last 10 days, have yo u been in contact with someone who was confirmed or suspected to have Coronavirus/COVID-19? No / Unsure 04/29/2022 10:26 AM FOOD WRITER documented as of this encounter Plan of Treatment Upcoming Encounters Date Type Department Care Team (Late st Contact Info) Description 05/15/2024 3:30 PM FOOD WRITER Appointment [facility] MRI ONE [place], [place] [address] Pankaj Rosenberg MD [address] [address] 05/25/2024 12:45 PM FOOD WRITER Office Visit [facility] Physical Therapy [facility] [address] Pankaj Rosenberg MD [address] [address] Maya Magaña, [place] [address] 05/30/2024 3:40 PM FOOD WRITER Office Visit [facility] Medical [facility] Multispecialty [facility] - [place] [address] [place] [address] [address] [address] [place] [address] Pankaj Rosenberg MD [address] [address] 06/20/2024 3:40 PM FOOD WRITER Telemedicine [facility] Medical [facility] Multispecialty [facility] - [place] [address] [address] [place] [address] Pankaj Rosenberg MD [address] [address] 06/21/2024 1:00 PM FOOD WRITER Office Visit [facility] Medical Group Orthopedic & Sports Medicine - [place] [address] [place] [address] Jose Ratliff MD [address] [address] [place] [address] 03/27/2025 1:00 PM FOOD WRITER Office Visit [facility] Medical Group Multispecialty Care - [facility] 3 [facility] [address] [place] [address] Bob Oneal MD [address] [place] [address] documented as of this encounter Visit Diagnoses Not on filedocumented in this encounter Additional Health Concerns Assessment Noted Time PHQ-9 Depression Total Score: 0 08/01/19 22 2:12 PM CDT documented as of this encounter Care Teams Executive Recruiter Relationship Specialty Start Date End Date Pankaj Rosenberg MD [address] [address] PCP - General INTERNAL MEDICINE 06/15/21 documented as of this encounter
--- OUTSIDE RECORDS SUMMARY | 2024-05-13 10:48 | XMS_ITS | Encounter Summary ---
Author Organization [facility] Address [address] [place] [address]. [place], [place] [address] [place] [address] Care Team Providers Care Golf Teacher Name Role Phone Pankaj Rosenberg MD Primary Care Provider [phone] Encounter Details Date Type Department Care Team (Latest Contact Info) Description 04/28/2022 Travel Social History Tobacco Use Types Packs/Day [...] on file Legal Sex Male 2:58 PM SENIOR ASIC ENGINEER Gender Identity Male 07/13/2021 5:19 AM SENIOR ASIC ENGINEER Sexual Orientation Straight 07/13/2021 5: 19 AM SENIOR ASIC ENGINEER COVID-19 Exposure Response Date Recorded In the last 10 days, have yo u been in contact with someone who was confirmed or suspected to have Coronavirus/COVID-19? No / Unsure 04/28/2022 7:22 AM SENIOR ASIC ENGINEER documented as of this encounter Plan of Treatment Upcoming Encounters Date Type Department Care Team (Late st Contact Info) Description 05/15/2024 3:30 PM SENIOR ASIC ENGINEER [facility]ointment [facility] [place] [address] Pankaj Rosenberg MD [address] [phone] 05/25/2024 12:45 PM SENIOR ASIC ENGINEER Office Visit [facility] Physical Therapy Critical access hospital[address] [address] Pankaj Rosenberg MD 1188 [facility] 157 [place] [address] Maya Magaña, [place] [address] 05/30/2024 3:40 PM SENIOR ASIC ENGINEER Office Visit [facility] Multispecialty [facility] Emergency Department - [place] [address] [place] [address] [address] [address] [place] [address] Pankaj Rosenberg MD [address] [address] 06/20/2024 3:40 PM SENIOR ASIC ENGINEER [facility]medicine [facility] Emergency Department - [place] [address] [address] [place] [address] Pankaj Rosenberg MD [address] [address] 06/21/2024 1:00 PM SENIOR ASIC ENGINEER Office Visit [facility] Medical Group Orthopedic & Sports Medicine - [place] [address] [place] [address] Jose Ratliff MD [address] [address] [place] [address] 03/27/2025 1:00 PM SENIOR ASIC ENGINEER Office Visit [facility] Medical [facility] Multispecialty Care - [facility] 3 [facility] [address] [place] [phone] Bob Oneal MD [address] [place] [address] documented as of this encounter Visit Diagnoses Not on filedocumented in this encounter Additional Health Concerns Assessment Noted Time PHQ-9 Depression Total Score: 0 08/01/19 2:12 PM CDT documented as of this encounter Care Teams Golf Teacher Relationship Specialty Start Date End Date Pankaj Rosenberg MD [address] [address] PCP - General INTERNAL MEDICINE 06/15/21 documented as of this encounter
--- OUTSIDE RECORDS SUMMARY | 2024-05-13 10:48 | XMS_ITS | Encounter Summary ---
Author Organization [facility] Address [address] [place] [address]. [place], [place] [address] [place] [address] Care Team Providers Care Stallion Manager Name Role Phone Pankaj Rosenberg MD Primary Care Provider [phone] Encounter Details Date Type Department Care Team (Latest Contact Info) Description 04/06/2022 Travel Social History Tobacco Use Types Packs/Day [...] on file Legal Sex Male 2:58 PM FILM NUMBERER Gender Identity Male 07/13/2021 5:19 AM FILM NUMBERER Sexual Orientation Straight 07/13/2021 5: 19 AM FILM NUMBERER COVID-19 Exposure Response Date Recorded In the last 10 days, have yo u been in contact with someone who was confirmed or suspected to have Coronavirus/COVID-19? No / Unsure 04/06/2022 11:04 AM FILM NUMBERER documented as of this encounter Plan of Treatment Upcoming Encounters Date Type Department Care Team (Late st Contact Info) Description 05/15/2024 3:[address] [facility] [facility] [address] Pankaj Rosenberg MD [address] [phone] 05/25/2024 12:45 PM FILM NUMBERER Office Visit [facility] Physical Therapy [facility] [address] Pankaj Rosenberg MD 1188 [facility] [address] [place] [address] Maya Magaña, [place] [address] 05/30/2024 3:40 PM FILM NUMBERER Office Visit [facility] Multispecialty [facility] - [place] [address] [place] [address] [address] [place] [address] Pankaj Rosenberg MD [address] [address] 06/20/2024 3:40 PM FILM NUMBERER [facility] - [place] [address] [address] [place] [address] Pankaj Rosenberg MD [address] [address] 06/21/2024 1:00 PM FILM NUMBERER Office Visit [facility] Medical Group Orthopedic & Sports Medicine - [place] [address] [place] [address] Jose Ratliff MD [address] [address] [place] [address] 03/27/2025 1:00 PM FILM NUMBERER Office Visit [facility] Medical [facility] Multispecialty Care - [facility] 3 [facility] [address] [place] [phone] Bob Oneal MD [address] [place] [address] documented as of this encounter Visit Diagnoses Not on filedocumented in this encounter Additional Health Concerns Assessment Noted Time PHQ-9 Depression Total Score: 0 08/01/19 2:12 PM CDT documented as of this encounter Care Teams Stallion Manager Relationship Specialty Start Date End Date Pankaj Rosenberg MD [address] [address] PCP - General INTERNAL MEDICINE 06/15/21 documented as of this encounter
--- OUTSIDE RECORDS SUMMARY | 2024-05-13 10:48 | XMS_ITS | Encounter Summary ---
Author Organization [facility] Address [address] [place] [address]. [place], [place] [address] [place] [address] Care Team Providers Care Independent Beauty Consultant Name Role Phone Pankaj Rosenberg MD Primary Care Provider [phone] Reason for Visit * Reason Comments Allied Health Visit Pt is here for lab d raw Encounter Details Date Type Department Care Team (Latest Contact Info) Description 04/28/2022 7:30 AM BAR GAUGER AND LUBRICATOR TENDER Allied Health/Nurse Visit [facility] Medical Group Multispecialty Care - [place] [address] [address] [place] [address] Pankaj Rosenberg MD [address] [place] [address] 157 [place], [place] [phone] Allied Health Visit (Pt is here for lab draw) Social History Tobacco Use Types Packs/Day [...] on file Legal Sex Male 2:58 PM BAR GAUGER AND LUBRICATOR TENDER Gender Identity Male 07/13/2021 5:19 AM BAR GAUGER AND LUBRICATOR TENDER Sexual Orientation Straight 07/13/2021 5: 19 AM BAR GAUGER AND LUBRICATOR TENDER COVID-19 Exposure Response Date Recorded In the last 10 days, have yo u been in contact with someone who was confirmed or suspected to have Coronavirus/COVID-19? No / Unsure 04/28/2022 7:22 AM BAR GAUGER AND LUBRICATOR TENDER documented as of this encounter Progress Notes * Alisia Felix - 04/28/2022 7:30 AM CSTAddended by: ALISIA FELIX on: 04/28/2022 03:41 PM Modules accepted: Orders GAUGER AND LUBRICATOR TENDER * Isela Daily MA - 04/28/2022 7:30 AM CST Pt is here for lab draw GAUGER AND LUBRICATOR TENDER documented in this encounter Plan of Treatment Upcoming Encounters Date Type Department Care Team (Late st Contact Info) Description 05/15/2024 3:30 PM BAR GAUGER AND LUBRICATOR TENDER Appointment [place] [address] Pankaj Rosenberg MD [address] [place] [address] 05/25/2024 12:45 PM BAR GAUGER AND LUBRICATOR TENDER Office Visit [facility] Physical Therapy [address] [place] [address] Pankaj Rosenberg MD [address] [place] [address] Maya Magaña, [place] [address] 05/30/2024 3:40 PM BAR GAUGER AND LUBRICATOR TENDER Office Visit [facility] Medical Group Multispecialty Care - [place] [address] [address] [place] [address] Pankaj Rosenberg MD [address] [place] [address] 06/20/2024 3:40 PM BAR GAUGER AND LUBRICATOR TENDER Telemedicine [facility] Multispecialty Care - [place] [address] [place] [address] [address] [place] [address] Pankaj Rosenberg MD 1188 [facility] 157 [place] [address] 06/21/2024 1:00 PM BAR GAUGER AND LUBRICATOR TENDER Office Visit [facility] - [facility] [address] [place] [address] Jose Ratliff MD 670 [facility] [address] [place] [address] 03/27/2025 1:00 PM BAR GAUGER AND LUBRICATOR TENDER [facility] 3 [facility] [address] [place] [address] Bob Oneal MD 3 [facility] [address] [place] [address] documented as of this encounter Procedures Procedure Name Priority Date/Time Associated Diagnosis Comments LYME DISEASE ANTIBODY Routine 04/28/2022 7:42 AM BAR GAUGER AND LUBRICATOR TENDER Chronic fatigue VENIPUNC ARM DRAW Routine 04/28/2022 7:4 1 AM BAR GAUGER AND LUBRICATOR TENDER Chronic fatigue documented in this encounter Results * LYME DISEASE ANTIBODY (04/28/2022 7:42 AM BAR GAUGER AND LUBRICATOR TENDER) LYME IGG/IGM <0.90 index [facility] Comment: ? Index ?Interpretation ? ----- ? < 0.90 ? Negative ? 0.90-1.09 ?Equivocal ? > 1.09 ? Positive ?? As recommended by the Food and Drug Administration (FDA), all samples with positive or equivocal results in a Borrelia burgdorferi antibody screen will be tested using a blot method. Positive or equivocal screening test results should not be interpreted as truly positive until verified as such using a supplemental assay (e.g., B. burgdorferi blot). The screening test and/or blot for B. burgdorferi antibodies may be falsely negative in early stages of Lyme disease, including the period when erythema migrans is apparent. 04/28/2022 7:42 AM BAR GAUGER AND LUBRICATOR TENDER 04/29/2022 2:37 AM BAR GAUGER AND LUBRICATOR TENDER Narrative Resulting Agency Comment Performing Organization Information: ?Site ID: [place] ?Name: [facility] ?Address: [address] [place] [address] ?Director: Wild Romero D.O., GERARD Pankaj Rosenberg MD LABORATORY Final Result Performing Organization Address City/State/[facility] Co de Phone Number [employer] [facility] [address] [address] [place], [place] [address] documented in this encounter Visit Diagnoses Diagnosis Chronic fatigue- Primary Other malaise and fatigue documented in this encounter Additional Health Concerns Assessment Noted Time PHQ-9 Depression Total Score: 0 08/01/19 2:12 PM CDT documented as of this encounter Care Teams Independent Beauty Consultant Relationship Specialty Start Date End Date Pankaj Rosenberg MD 1188 [facility] [address] [place] [address] PCP - General INTERNAL MEDICINE 06/15/21 documented as of this encounter
--- OUTSIDE RECORDS SUMMARY | 2024-05-13 10:48 | XMS_ITS | Encounter Summary ---
Author Organization [facility] Address [address] [place] [address]. [place], [place] [address] [place] [address] Care Team Providers Care Home Care Aide Name Role Phone Pankaj Rosenberg MD Primary Care Provider [phone] Reason for Visit * Reason Comments Sleep Study (SCAN) Encounter Details Date Type Department Care Team ([facility] Contact Info) Description 03/25/2022 Scan HEALTH INFO SRVCS Scanned, Doc Med Group Sleep Study (SCAN) Social History Tobacco Use Types Packs/Day [...] on file Legal Sex Male 2:58 PM VIOLIN RESTORER Gender Identity Male 07/13/2021 5:19 AM VIOLIN RESTORER Sexual Orientation Straight 07/13/2021 5: 19 AM VIOLIN RESTORER COVID-19 Exposure Response Date Recorded In the last 10 days, have yo u been in contact with someone who was confirmed or suspected to have Coronavirus/COVID-19? No / Unsure 03/26/2022 10:17 AM VIOLIN RESTORER documented as of this encounter Plan of Treatment Upcoming Encounters Date Type Department Care Team ([facility] Contact Info) Description 05/15/2024 3:30 PM [address] [facility] [place] [address] Pankaj Rosenberg MD [address] [address] 05/25/2024 12:45 PM VIOLIN RESTORER Office Visit [facility] Physical Therapy [address] [place] [address] Pankaj Rosenberg MD [address] [address] Maya Magaña, [place] [address] 05/30/2024 3:40 PM VIOLIN RESTORER Office Visit [facility] Medical [facility] Multispecialty Care - [place] [address] [address] [place] [address] Pankaj Rosenberg MD [facility]8 [address] [address] 06/20/2024 3:40 PM VIOLIN RESTORER Telemedicine [facility] - [place] [address] [address] [place] [address] Pankaj Rosenberg MD [facility] [address] [address] 06/21/2024 1:00 PM VIOLIN RESTORER Office Visit [facility] Medical Group Orthopedic & Sports Medicine - [place] [address] [place] [address] Jose Ratliff MD [address] [address] [place] [address] 03/27/2025 1:00 PM VIOLIN RESTORER Office Visit [facility] Medical Group Multispecialty Care - [facility] 3 [facility] [address] [place] [address] Bob Oneal MD 3 [facility] [address] [place] [address] documented as of this encounter Procedures Procedure Name Priority Date/Time Associated Diagnosis Comments SLEEP STUDY GENERIC (SCAN ORDER) 03/25/2022 documented in this encounter Results * SLEEP STUDY GENERIC (03/25/2022) 03/25/2022 us Doc Med Group Scanned SCANNING Final Resu lt documented in this encounter Visit Diagnoses Not on filedocumented in this encounter Additional Health Concerns Assessment Noted Time PHQ-9 Depression Total Score: 0 08/01/19 22 2:12 PM CDT documented as of this encounter Care Teams Home Care Aide Relationship Specialty Start Date End Date Pankaj Rosenberg MD 1188 [facility] 157 [place] [address] PCP - General INTERNAL MEDICINE 06/15/21 documented as of this encounter
--- OUTSIDE RECORDS SUMMARY | 2024-05-13 10:48 | XMS_ITS | Encounter Summary ---
Author Organization [facility] Address [address] [place] [address]. [place], [place] [address] [place] [address] Care Team Providers Care Poultry Husbandman Name Role Phone Pankaj Rosenberg MD Primary Care Provider [phone] Encounter Details Date Type Department Care Team (Latest Contact Info) Description 03/26/2022 Travel Social History Tobacco Use Types Packs/Day [...] on file Legal Sex Male 2:58 PM FLIGHT RADIO OFFICER Gender Identity Male 07/13/2021 5:19 AM FLIGHT RADIO OFFICER Sexual Orientation Straight 07/13/2021 5: 19 AM FLIGHT RADIO OFFICER COVID-19 Exposure Response Date Recorded In the last 10 days, have yo u been in contact with someone who was confirmed or suspected to have Coronavirus/COVID-19? No / Unsure 03/26/2022 10:17 AM FLIGHT RADIO OFFICER documented as of this encounter Plan of Treatment Upcoming Encounters Date Type Department Care Team (Late st Contact Info) Description 05/15/2024 3:30 PM FLIGHT RADIO OFFICER [facility]ointment [facility] [place] [address] Pankaj Rosenberg MD [address] [address] [phone] 05/25/2024 12:45 PM FLIGHT RADIO OFFICER Office Visit [facility] Physical Therapy [facility] [address] Pankaj Rosenberg MD 1188 [facility] 157 [place] [address] Maya Magaña, [place] [address] 05/30/2024 3:40 PM FLIGHT RADIO OFFICER Office Visit [facility] Multispecialty [facility] [place] [address] [place] [address] [address] [place] [address] Pankaj Rosenberg MD [address] [address] 06/20/2024 3:40 PM FLIGHT RADIO OFFICER [facility] [place] [address] [address] [place] [address] Pankaj Rosenberg MD [address] [address] 06/21/2024 1:00 PM FLIGHT RADIO OFFICER Office Visit [facility] Medical Group Orthopedic & Sports Medicine - [place] [address] [place] [address] Jose Ratliff MD [address] [address] [place] [address] 03/27/2025 1:00 PM FLIGHT RADIO OFFICER Office Visit [facility] Medical [facility] Multispecialty Care - [facility] 3 [facility] [address] [place] [phone] Bob Oneal MD [address] [place] [address] documented as of this encounter Visit Diagnoses Not on filedocumented in this encounter Additional Health Concerns Assessment Noted Time PHQ-9 Depression Total Score: 0 08/01/19 2:12 PM CDT documented as of this encounter Care Teams Poultry Husbandman Relationship Specialty Start Date End Date Pankaj Rosenberg MD [address] [address] PCP - General INTERNAL MEDICINE 06/15/21 documented as of this encounter
--- OUTSIDE RECORDS SUMMARY | 2024-05-13 10:48 | XMS_ITS | Encounter Summary ---
Author Organization [facility] Address [address] [place] [address]. [place] [address] [place] [address] Care Team Providers Care Interpreter For The Deaf Name Role Phone Pankaj Rosenberg MD Primary Care Provider [phone] Reason for Visit * Reason Onset Date Comments Information 05/18/2022 Encounter Details Date Type Department Care Team (Late st Contact Info) Description 05/18/2022 Telephone [facility] Medical Group Multispecialty Care - [facility] 3 [facility] [address] [place] [id number] Milton Andino MD 3 [facility] [address] [place] [address] Information Social History Tobacco Use Types Packs/Day [...] on file Legal Sex Male 2:58 PM TRIAL MANAGER Gender Identity Male 07/13/2021 5:19 AM TRIAL MANAGER Sexual Orientation Straight 07/13/2021 5: 19 AM TRIAL MANAGER COVID-19 Exposure Response Date Recorded In the last 10 days, have yo u been in contact with someone who was confirmed or suspected to have Coronavirus/COVID-19? No / Unsure 04/29/2022 10:26 AM TRIAL MANAGER documented as of this encounter Progress Notes * Malia Ghosh MA - 05/18/2022 3:14 PM CST Called and LM informing Gloria patient is using and benefiting from CPAP. She is to call back with a fax number if she is needing the note from 03-26-2022 faxed L MANAGER * Artur Cruz - 05/18/2022 10:20 AM CST Gloria from [employer] called today wanting to know if CPap is benefiting the pt with his sleep apnea pls call and discuss [phone], if she is not available pls leav a detailed msg. L MANAGER documented in this encounter Plan of Treatment Upcoming Encounters Date Type Department Care Team (Late st Contact Info) Description 05/15/2024 3:30 PM TRIAL MANAGER Appointment [facility] [place] [address] [place] [address] [place] [phone] 05/25/2024 12:45 PM TRIAL MANAGER Office Visit [facility] Physical Therapy [address] [place] [phone] Pankaj Rosenberg MD [address] [phone] Maya Magaña, [place] [address] 05/30/2024 3:40 PM TRIAL MANAGER Office Visit [facility] Multispecialty Care - [place] [address] [address] [place] [address] Pankaj Rosenberg MD [address] [address] 06/20/2024 3:40 PM TRIAL MANAGER Telemedicine [facility] Multispecialty [facility] [place] [address] [address] [place] [address] Pankaj Rosenberg MD [address] [address] 06/21/2024 1:00 PM TRIAL MANAGER Office Visit [facility] Orthopedic & Sports Medicine - [place] [address] [place] [address] Jose Ratliff MD [address] [place] [address] [place] [address] 03/27/2025 1:00 PM TRIAL MANAGER Office Visit [facility] Multispecialty Care - [facility] 3 [facility], [address] [place] [address] Bob Oneal MD 3 [facility] [address] [place] [address] documented as of this encounter Visit Diagnoses Not on filedocumented in this encounter Additional Health Concerns Assessment Noted Time PHQ-9 Depression Total Score: 0 08/01/19 2:12 PM CDT documented as of this encounter Care Teams Interpreter For The Deaf Relationship Specialty Start Date End Date Pankaj Rosenberg MD [address] [place] [address] PCP - General INTERNAL MEDICINE 06/15/21 documented as of this encounter
--- OUTSIDE RECORDS SUMMARY | 2024-05-13 10:48 | XMS_ITS | Encounter Summary ---
Author Organization [facility] Address [address] [place] [address]. [place], [place] [address] [place] [address] Care Team Providers Care Ug Designer Name Role Phone Pankaj Rosenberg MD Primary Care Provider [phone] Encounter Details Date Type Department Care Team (Latest Contact Info) Description 04/28/2022 - 04/28/2022 11:59 PM DIRECTOR OF MANUFACTURING OPERATIONS Hospital Encounter [facility] [address] [place] [address] Pankaj Rosenberg MD [address] [address] Discharge Disposition: Home or Self [...] file Legal Sex Male 2:58 PM DIRECTOR OF MANUFACTURING OPERATIONS Gender Identity Male 07/13/2021 5:19 AM DIRECTOR OF MANUFACTURING OPERATIONS Sexual Orientation Straight 07/13/2021 5: 19 AM DIRECTOR OF MANUFACTURING OPERATIONS COVID-19 Exposure Response Date Recorded In the last 10 days, have yo u been in contact with someone who was confirmed or suspected to have Coronavirus/COVID-19? No / Unsure 04/28/2022 7:22 AM DIRECTOR OF MANUFACTURING OPERATIONS documented as of this encounter Medications at Time of Discharge Blood Glucose Monitoring Suppl (BankerBay TechnologiesTOUCH VERIO REFLECT) w/Device Kit 1 Units by Does not apply route 2 (two) times daily. 09/16/2021 CPAP DEVICE, DME,Indications:KARRIE (obstructive sleep apnea) Use daily when sleeping or taking a nap. 1 Device 08/21/2021 Lancets (BankerBay TechnologiesTOUCH DELICA PLUS [id number]) [facility] [place] 1 LANCET TO PRICK FINGER TWICE DAILY BEFORE TESTING 09/16/2021 TRUEplus Lancets 33G Misc 09/16/2021 Alcohol Swabs (ALCOHOL WIPES) 70 % Pads USE 1 SWAB TO CLEAN SKIN TWICE DAILY BEFORE TESTING 09/16/2021 3 amLODIPine (NORVASC) 10 MG tabletIndications:Hy pertension associated with type 2 diabetes mellitus ([facility]),Essential hypertension, benign Take 1 tablet (10 mg total) by mouth daily. 90 tablet 1 04/06/2022 3 AZELASTINE 0.1 % nasal sprayIndications:All ergic rhinitis, unspecified seasonality, unspecified trigger USE 1 SPRAY IN EACH NOSTRIL TWICE DAILY DIRECTED 90 mL 1 07/13/2021 3 cetirizine 5 MG chewable tabletIndications:En vironmental allergies,Allergic rhinitis, unspecified seasonality, unspecified trigger Chew 5 mg by mouth daily. 3 lidocaine 5 % Place 1 patch onto the skin daily. 09/22/2021 3 lisinopril (PRINIVIL) 10 MG tabletIndications:Hy pertension associated with type 2 diabetes mellitus ([facility]/HCC),Essential hypertension, benign Take 1 tablet (10 mg total) by mouth daily. 90 tablet 1 04/06/2022 3 montelukast (SINGULAIR) 10 MG tabletIndications:En vironmental allergies,Allergic rhinitis, unspecified seasonality, unspecified trigger TAKE 1 TABLET(10 MG) BY MOUTH EVERY NIGHT AT BEDTIME 30 tablet 3 02/05/2022 3 omeprazole (PRILOSEC) 40 MG capsuleIndications:G astroesophageal reflux disease without esophagitis Take 1 capsule (40 mg total) by mouth daily as needed. 90 capsule 1 04/06/2022 3 polyethylene glycol 17 GM/SCOOP powder Take 17 g by mouth daily. 09/22/2021 3 pravastatin (PRAVACHOL) 40 MG tabletIndications:Hy perlipidemia due to type 2 diabetes mellitus ([facility]),Mixed hyperlipidemia Take 1 tablet (40 mg total) by mouth nightly at bedtime. 90 tablet 1 04/06/2022 3 SITagliptin (JANUVIA) 25 mg TabIndications:Type 2 diabetes mellitus with hyperglycemia, without long-term current use of insulin ([facility]) Take 1 tablet (25 mg total) by mouth daily. 30 tablet 5 04/06/2022 3 SUCRALFATE 1 G tabletIndications:Ga stroesophageal reflux [...] Contact Info) Description 05/15/2024 3:30 PM DIRECTOR OF MANUFACTURING OPERATIONS Appointment [facility] [place] [address] Pankaj Rosenberg MD [address] [place] [address] 05/25/2024 12:45 PM DIRECTOR OF MANUFACTURING OPERATIONS Office Visit [facility] Physical Therapy [address] [place] [address] Pankaj Rosenberg MD [address] [place] [address] Maya Magaña, [place] [address] 05/30/2024 3:40 PM DIRECTOR OF MANUFACTURING OPERATIONS Office Visit [facility] Multispecialty Care - [place] [address] [address] [place] [address] Pankaj Rosenberg MD [address] [address] 06/20/2024 3:40 PM DIRECTOR OF MANUFACTURING OPERATIONS [facility] [place] [address] [address] [place] [address] Pankaj Rosenberg MD Counts include 234 beds at the [facility] [address] 06/21/2024 1:00 PM DIRECTOR OF MANUFACTURING OPERATIONS Office Visit [facility] Orthopedic & Sports Medicine - [place] [address] [place] [address] Jose Ratliff MD [address] [address] [place] [address] 03/27/2025 1:00 PM DIRECTOR OF MANUFACTURING OPERATIONS Office Visit [facility] Multispecialty [facility] - [facility] 3 [facility], [address] [place] [address] Bob Oneal MD 3 [facility] [address] [place] [address] documented as of this encounter Visit Diagnoses Not on filedocumented in this encounter Additional Health Concerns Assessment Noted Time PHQ-9 Depression Total Score: 0 08/01/19 22 2:12 PM CDT documented as of this encounter Care Teams Ug Designer Relationship Specialty Start Date End Date Pankaj Rosenberg MD [address] [place] [address] PCP - General INTERNAL MEDICINE 06/15/21 documented as of this encounter
--- OUTSIDE RECORDS SUMMARY | 2024-05-13 10:48 | XMS_ITS | Encounter Summary ---
Author Organization [facility] Address [address] [place] [address]. [place] [address] [place] [address] Care Team Providers Care Stain Dipper Name Role Phone Pankaj Rosenberg MD Primary Care Provider [phone] Reason for Visit * Reason Onset Date Comments TCM 03/22/2022 Encounter Details Date Type Department Care Team (Late st Contact Info) Description 03/22/2022 Telephone [facility] Medical Group Multispecialty Care - [place] [address] [address] [place] [address] Pankaj Rosenberg MD [address] [place] [address] 157 [place] [address] TCM Social History Tobacco Use Types Packs/Day Years [...] on file Legal Sex Male 2:58 PM REPAIRING CALIBRATOR Gender Identity Male 07/13/2021 5:19 AM REPAIRING CALIBRATOR Sexual Orientation Straight 07/13/2021 5: 19 AM REPAIRING CALIBRATOR documented as of this encounter Progress Notes * Isela Daily MA - 03/22/2022 4:20 PM CST LM for patient to call us back about being discharged from the hospital IRING CALIBRATOR documented in this encounter Plan of Treatment Upcoming Encounters Date Type Department Care Team (Late st Contact Info) Description 05/15/2024 3:30 PM REPAIRING CALIBRATOR Appointment [facility] [place] [address] Pankaj Rosenberg MD [address] [place] [address] 05/25/2024 12:45 PM REPAIRING CALIBRATOR Office Visit [facility] Physical Therapy [address] [place] [address] Pankaj Rosenberg MD [address] [place] [address] Maya Magaña, [place] [address] 05/30/2024 3:40 PM REPAIRING CALIBRATOR Office Visit [facility] Medical [facility] Multispecialty Care - [place] [address] [place] [address] Pankaj Rosenberg MD [facility]8 [address] [address] 06/20/2024 3:40 PM REPAIRING CALIBRATOR Telemedicine [facility] Medical [facility] Multispecialty Care - [place] [address] [address] [place] [address] Pankaj Rosenberg MD [address] [place] [address] 06/21/2024 1:00 PM REPAIRING CALIBRATOR Office Visit [facility] Medical Group Orthopedic & Sports Medicine - [address] [place] [address] Jose Ratliff MD [address] [place] [address] [address] [place] [address] 03/27/2025 1:00 PM REPAIRING CALIBRATOR Office Visit [facility] Medical Group Multispecialty Care - [facility] [address] [facility] [address] [place] [address] Bob Oneal MD [address] [facility] [address] [place] [address] documented as of this encounter Visit Diagnoses Not on filedocumented in this encounter Additional Health Concerns Assessment Noted Time PHQ-9 Depression Total Score: 0 08/01/19 22 2:12 PM CDT documented as of this encounter Care Teams Stain Dipper Relationship Specialty Start Date End Date Pankaj Rosenberg MD [address] [address] PCP - General INTERNAL MEDICINE 06/15/21 documented as of this encounter
--- OUTSIDE RECORDS SUMMARY | 2024-05-13 10:48 | XMS_ITS | Encounter Summary ---
Author Organization [facility] Address [address] [place] [address]. [place], [place] [address] [place] [address] Care Team Providers Care Manager Union Name Role Phone Pankaj Rosenberg MD Primary Care Provider [phone] Encounter Details Date Type Department Care Team (Late st Contact Info) Description 04/28/2022 Orders Only [facility] Medical Group Multispecialty Care - [address] [place], [place] [address] Isela Daily MA Social History Tobacco Use Types Packs/Day Years [...] on file Legal Sex Male 2:58 PM EMANATIONS ANALYSIS TECHNICIAN Gender Identity Male 07/13/2021 5:19 AM EMANATIONS ANALYSIS TECHNICIAN Sexual Orientation Straight 07/13/2021 5: 19 AM EMANATIONS ANALYSIS TECHNICIAN COVID-19 Exposure Response Date Recorded In the last 10 days, have yo u been in contact with someone who was confirmed or suspected to have Coronavirus/COVID-19? No / Unsure 04/29/2022 10:26 AM EMANATIONS ANALYSIS TECHNICIAN documented as of this encounter Plan of Treatment Upcoming Encounters Date Type Department Care Team (Late st Contact Info) Description 05/15/2024 3:30 PM EMANATIONS ANALYSIS TECHNICIAN [place] [address] Pankaj Rosenberg MD [address] [address] 05/25/2024 12:45 PM EMANATIONS ANALYSIS TECHNICIAN Office Visit [facility] Physical Therapy [address] [place] [address] Pankaj Rosenberg MD [facility]8 [address] [address] Maya Magaña, [place] [address] 05/30/2024 3:40 PM EMANATIONS ANALYSIS TECHNICIAN Office Visit [facility] Medical [facility] Multispecialty Care - [address] [address] Pankaj Rosenberg MD [facility]8 [address] [address] 06/20/2024 3:40 PM EMANATIONS ANALYSIS TECHNICIAN Telemedicine [facility] Medical [facility] Multispecialty Care - [address] [address] Pankaj Rosenberg MD [address] [place] [address] 06/21/2024 1:00 PM EMANATIONS ANALYSIS TECHNICIAN Office Visit [facility] Medical Group Orthopedic & Sports Medicine - [place] [address] [place] [address] Jose Ratliff MD [address] [address] [place] [address] 03/27/2025 1:00 PM EMANATIONS ANALYSIS TECHNICIAN Office Visit [facility] Medical Group Multispecialty Care - [facility] [address] [facility] [address] [place] [address] Bob Oneal MD [address] [facility] [address] [place] [address] documented as of this encounter Procedures Procedure Name Priority Date/Time Associated Diagnosis Comments TESTOSTERONE, TOTAL Routine 04/28/2022 7 :41 AM EMANATIONS ANALYSIS TECHNICIAN Chronic fatigue documented in this encounter Results * (ABNORMAL) TESTOSTERONE, TOTAL (04/28/2022 7:41 AM EMANATIONS ANALYSIS TECHNICIAN) Testosterone: 196.8(L) 197.4 - 669.6 NG/DL 04/28/2022 7:26 PM EMANATIONS ANALYSIS TECHNICIAN [facility] Comment: ASSAY PERFORMED BY CHEMILUMINESCENCE METHODOLOGY USING SIEMENS bounce.ioAUR XPT REAGENT. PATIENT RESULTS DETERMINED BY ASSAYS USING DIFFERENT MANUFACTURERS FOR METHODS MAY NOT BE COMPARABLE. 04/28/2022 7:41 AM EMANATIONS ANALYSIS TECHNICIAN Pankaj Rosenberg MD LABORATORY Final Result [facility] [address] [place] [address], [phone] documented in this encounter Visit Diagnoses Diagnosis Chronic fatigue Other malaise and fatigue documented in this encounter Additional Health Concerns Assessment Noted Time PHQ-9 Depression Total Score: 0 08/01/19 22 2:12 PM CDT documented as of this encounter Care Teams Manager Union Relationship Specialty Start Date End Date Pankaj Rosenberg MD 1188 [facility] [address] [place] [address] PCP - General INTERNAL MEDICINE 06/15/21 documented as of this encounter
--- OUTSIDE RECORDS SUMMARY | 2024-05-13 10:48 | XMS_ITS | Encounter Summary ---
Author Organization [facility] Address [address] [place] [address]. [place], [place] [address] [place] [address] Care Team Providers Care Household Worker Name Role Phone Pankaj Rosenberg MD Primary Care Provider [phone] Reason for Visit * Reason Onset Date Comments Reschedule 06/07/2022 Encounter Details Date Type Department Care Team (Late st Contact Info) Description 06/07/2022 Telephone [facility] Medical Group Multispecialty Care - [place] [address] [address] [place] [address] Pankaj Rosenberg MD [address] [place] [address] 157 [place], [place] [phone] Reschedule Social History Tobacco Use Types Packs/Day Years [...] on file Legal Sex Male 2:58 PM LONG TERM ACUTE CARE REGISTERED NURSE Gender Identity Male 07/13/2021 5:19 AM LONG TERM ACUTE CARE REGISTERED NURSE Sexual Orientation Straight 07/13/2021 5: 19 AM LONG TERM ACUTE CARE REGISTERED NURSE documented as of this encounter Progress Notes * Milagros Knight - 06/11/2022 10:30 AM CST Rescheduled for 06/15 TERM ACUTE CARE REGISTERED NURSE * Ivana Falk - 06/07/2022 10:29 AM CST Please call patient to see if he can reschedule this appt he cancelled for 06/08/22 for a physical. TERM ACUTE CARE REGISTERED NURSE documented in this encounter Plan of Treatment Upcoming Encounters Date Type Department Care Team (Late st Contact Info) Description 05/15/2024 3:30 PM LONG TERM ACUTE CARE REGISTERED NURSE Appointment [facility] [place] [address] Pankaj Rosenberg MD [address] [place] [address] 05/25/2024 12:45 PM LONG TERM ACUTE CARE REGISTERED NURSE Office Visit [facility] Physical Therapy [address] [place] [address] Pankaj Rosenberg MD [address] [place] [address] Maya Magaña, [place] [address] 05/30/2024 3:40 PM LONG TERM ACUTE CARE REGISTERED NURSE [facility] - [place] [address] [address] [place] [address] Pankaj Rosenberg MD [address] [place] [address] 06/20/2024 3:40 PM LONG TERM ACUTE CARE REGISTERED NURSE [facility]medicine [facility] - [place] [address] [address] [place] [address] Pankaj Rosenberg MD 1188 [facility] 157 [place] [address] 06/21/2024 1:00 PM LONG TERM ACUTE CARE REGISTERED NURSE Office Visit [facility] Orthopedic & Sports Medicine - [place] [address] [place] [address] Jose Ratliff MD [address] [place] [address] [place] [address] 03/27/2025 1:00 PM LONG TERM ACUTE CARE REGISTERED NURSE Office Visit [facility] Multispecialty Care - [facility] 3 [facility] [address] [place] [address] Bob Oneal MD [address] [facility] [address] [place] [address] documented as of this encounter Visit Diagnoses Not on filedocumented in this encounter Additional Health Concerns Assessment Noted Time PHQ-9 Depression Total Score: 0 08/01/19 22 2:12 PM CDT documented as of this encounter Care Teams Household Worker Relationship Specialty Start Date End Date Pankaj Rosenberg MD 1188 [facility] 157 [place] [address] PCP - General INTERNAL MEDICINE 06/15/21 documented as of this encounter
--- OUTSIDE RECORDS SUMMARY | 2024-05-13 10:48 | XMS_ITS | Encounter Summary ---
Author Organization [facility] Address [address] [place] [address]. [place], [place] [address] [place] [address] Care Team Providers Care Maintenance Repairman Name Role Phone Pankaj Rosenberg MD Primary Care Provider [phone] Reason for Visit * Reason Onset Date Comments Error 04/01/2022 Encounter Details Date Type Department Care Team (Late st Contact Info) Description 04/01/2022 Telephone [facility] Medical Group Multispecialty Care - [place] [address] [address] [place], [place] [id number] Pankaj Rosenberg MD [address] [place] [address] 157 [place] [address] Error Social History Tobacco Use Types Packs/Day [...] on file Legal Sex Male 2:58 PM MAILING MACHINE HELPER Gender Identity Male 07/13/2021 5:19 AM MAILING MACHINE HELPER Sexual Orientation Straight 07/13/2021 5: 19 AM MAILING MACHINE HELPER COVID-19 Exposure Response Date Recorded In the last 10 days, have yo u been in contact with someone who was confirmed or suspected to have Coronavirus/COVID-19? No / Unsure 03/26/2022 10:17 AM MAILING MACHINE HELPER documented as of this encounter Progress Notes * Pankaj Rosenberg MD - 04/01/2022 10:07 AM CST error ING MACHINE HELPER documented in this encounter Plan of Treatment Upcoming Encounters Date Type Department Care Team (Late st Contact Info) Description 05/15/2024 3:30 PM MAILING MACHINE HELPER Appointment [facility] [address] Pankaj Rosenberg MD [address] [place] [address] 05/25/2024 12:45 PM MAILING MACHINE HELPER Office Visit [facility] Physical Therapy [address] [place] [address] Pankaj Rosenberg MD [address] [place] [address] Maya Magaña, [place] [address] 05/30/2024 3:40 PM MAILING MACHINE HELPER Office Visit [facility] [place] [address] [place] [address] [place] [address] [place] [address] 06/20/2024 3:40 PM MAILING MACHINE HELPER Telemedicine [facility] - [place] [address] [address] [place] [address] Pankaj Rosenberg MD [address] [address] 06/21/2024 1:00 PM MAILING MACHINE HELPER Office Visit [facility] Orthopedic & Sports Medicine - [place] [address] [place] [address] Jose Ratliff MD [address] [place] [address] [place] [address] 03/27/2025 1:00 PM MAILING MACHINE HELPER Office Visit [facility] Multispecialty Care - [facility] [address] [facility] [place] [address] Bob Oneal MD [address] [facility] [address] [place] [address] documented as of this encounter Visit Diagnoses Not on filedocumented in this encounter Additional Health Concerns Assessment Noted Time PHQ-9 Depression Total Score: 0 08/01/19 2:12 PM CDT documented as of this encounter Care Teams Maintenance Repairman Relationship Specialty Start Date End Date Pankaj Rosenberg MD [address] [address] PCP - General INTERNAL MEDICINE 06/15/21 documented as of this encounter
--- OUTSIDE RECORDS SUMMARY | 2024-05-13 10:48 | XMS_ITS | Encounter Summary ---
Author Organization [facility] Address [address] [place] [address]. [place], [place] [address] [place] [address] Care Team Providers Care Vp Client Services Name Role Phone Pankaj Rosenberg MD Primary Care Provider [phone] Encounter Details Date Type Department Care Team (Latest Contact Info) Description 03/24/2022 Scan HEALTH INFO SRVCS Scanned, Doc Med [...] on file Legal Sex Male 2:58 PM NURSING TECH Gender Identity Male 07/13/2021 5:19 AM NURSING TECH Sexual Orientation Straight 07/13/2021 5: 19 AM NURSING TECH COVID-19 Exposure Response Date Recorded In the last 10 days, have yo u been in contact with someone who was confirmed or suspected to have Coronavirus/COVID-19? No / Unsure 03/26/2022 10:17 AM NURSING TECH documented as of this encounter Plan of Treatment Upcoming Encounters Date Type Department Care Team (Late st Contact Info) Description 05/15/2024 3:30 PM NURSING TECH Appointment [facility] [place] [address] Pankaj Rosenberg MD [address] [place] [address] 157 [place] [address] 05/25/2024 12:45 PM NURSING TECH Office Visit [facility] Physical Therapy [facility] [address] [address] Pankaj Rosenberg MD [address] [address] Maya Magaña, [place] [address] 05/30/2024 3:40 PM NURSING TECH Office Visit [facility] Medical [facility] Multispecialty [facility] - [place] [address] [address] [place] [address] Pankaj Rosenberg MD [address] [address] 06/20/2024 3:40 PM NURSING TECH Telemedicine [facility] Medical [facility] Multispecialty [facility] - [place] [address] [address] [place] [address] Pankaj Rosenberg MD [address] [address] 06/21/2024 1:00 PM NURSING TECH Office Visit [facility] Medical Group Orthopedic & Sports Medicine - [place] [address] [place] [address] Jose Ratliff MD [address] [address] [place] [address] 03/27/2025 1:00 PM NURSING TECH Office Visit [facility] Medical Group Multispecialty Care - [facility] [address] [facility] [address] [place] [address] Bob Oneal MD 3 [facility] [address] [place] [address] documented as of this encounter Visit Diagnoses Not on filedocumented in this encounter Additional Health Concerns Assessment Noted Time PHQ-9 Depression Total Score: 0 08/01/19 22 2:12 PM CDT documented as of this encounter Care Teams Vp Client Services Relationship Specialty Start Date End Date Pankaj Rosenberg MD [address] [address] PCP - General INTERNAL MEDICINE 06/15/21 documented as of this encounter
--- OUTSIDE RECORDS SUMMARY | 2024-05-13 10:49 | XMS_ITS | Encounter Summary ---
Author Organization [facility] Address [address] [place] [address]. [place], [place] [address] [place] [address] Care Team Providers Care Cupola Tapper Helper Name Role Phone Pankaj Rosenberg MD Primary Care Provider [phone] Encounter Details Date Type Department Care Team (Latest Contact Info) Description 03/17/2022 Scan MG HEALTH INFO SRVCS Scanned, Doc [...] on file Legal Sex Male 2:58 PM CHIN STRAP MAKER Gender Identity Male 07/13/2021 5:19 AM CHIN STRAP MAKER Sexual Orientation Straight 07/13/2021 5: 19 AM CHIN STRAP MAKER documented as of this encounter Plan of Treatment Upcoming Encounters Date Type Department Care Team (Late st Contact Info) Description 05/15/2024 3:30 PM CHIN STRAP MAKER Appointment [facility] [place] [address] Pankaj Rosenberg MD [address] [address] 05/25/2024 12:45 PM CHIN STRAP MAKER Office Visit [facility] Physical Therapy [facility] [address] [address] Pankaj Rosenberg MD [address] [address] Maya Magaña, PT One [facility] [address] 05/30/2024 3:40 PM CHIN STRAP MAKER [facility] - [place] [address] [address] [place] [address] Pankaj Rosenberg MD [facility] [address] [address] 06/20/2024 3:40 PM CHIN STRAP MAKER [facility] - [place] [address] [address] [place] [address] Pankaj Rosenberg MD [address] [address] 06/21/2024 1:00 PM CHIN STRAP MAKER Office Visit [facility] Orthopedic & Sports Medicine - [place] [address] [place] [address] Jose Ratliff MD [address] [address] [place] [address] 03/27/2025 1:00 PM CHIN STRAP MAKER Office Visit [facility] Multispecialty Care - [facility] 3 [facility] [address] [place] [address] Bob Oneal MD 3 [facility] [address] [place] [address] documented as of this encounter Visit Diagnoses Not on filedocumented in this encounter Additional Health Concerns Assessment Noted Time PHQ-9 Depression Total Score: 0 08/01/19 22 2:12 PM CDT documented as of this encounter Care Teams Cupola Tapper Helper Relationship Specialty Start Date End Date Pankaj Rosenberg MD [address] [address] PCP - General INTERNAL MEDICINE 06/15/21 documented as of this encounter
--- OUTSIDE RECORDS SUMMARY | 2024-05-13 10:50 | XMS_ITS | Encounter Summary ---
Author Organization [facility] Address [address] [place] [address]. [place], [place] [address] [place] [address] Care Team Providers Care Biostatistics Professor Name Role Phone Pankaj Rosenberg MD Primary Care Provider [phone] Reason for Visit * Reason Comments Dilated Eye Exam (SCAN) Encounter Details Date Type Department Care Team ([facility] Contact Info) Description 02/24/2022 Scan HEALTH INFO SRVCS Scanned, Doc Med Group Dilated Eye Exam (SCAN) Social History Tobacco Use Types Packs/Day [...] on file Legal Sex Male 2:58 PM BRANCH LENDING OFFICER Gender Identity Male 07/13/2021 5:19 AM BRANCH LENDING OFFICER Sexual Orientation Straight 07/13/2021 5: 19 AM BRANCH LENDING OFFICER COVID-19 Exposure Response Date Recorded In the last 10 days, have yo u been in contact with someone who was confirmed or suspected to have Coronavirus/COVID-19? No / Unsure 04/06/2022 11:04 AM BRANCH LENDING OFFICER documented as of this encounter Plan of Treatment Upcoming Encounters Date Type Department Care Team ([facility] Contact Info) Description 05/15/2024 3:30 PM BRANCH LENDING OFFICER [facility] [place] [address] Pankaj Rosenberg MD [address] [address] 05/25/2024 12:45 PM BRANCH LENDING OFFICER Office Visit [facility] Physical Therapy [address] [place] [address] Pankaj Rosenberg MD [address] [address] Maya Magaña, [place] [address] 05/30/2024 3:40 PM BRANCH LENDING OFFICER Office Visit [facility] Medical [facility] Multispecialty Care - [place] [address] [address] [place] [address] Pankaj Rosenberg MD [address] [address] 06/20/2024 3:40 PM BRANCH LENDING OFFICER Telemedicine [facility] - [address] [place] [address] Pankaj Rosenberg MD [facility] [address] [address] 06/21/2024 1:00 PM BRANCH LENDING OFFICER Office Visit [facility] Medical Group Orthopedic & Sports Medicine - [place] [address] [place] [address] Jose Ratliff MD [address] [address] [place] [address] 03/27/2025 1:00 PM BRANCH LENDING OFFICER Office Visit [facility] Medical Group Multispecialty Care - [address] [place] [address] Bob Oneal MD [address] [facility] [address] [place] [address] documented as of this encounter Procedures Procedure Name Priority Date/Time Associated Diagnosis Comments DIABETIC RETINOPATHY EXAM (NEGATIVE)(SCAN ORDER) Routine 02/24/2022 documented in this encounter Results * DIABETIC RETINOPATHY EXAM (NEGATIVE)(SCAN) (02/24/2022) us Doc Med Group Scanned SCANNING Final Resu lt [facility] documented in this encounter Visit Diagnoses Not on filedocumented in this encounter Additional Health Concerns Assessment Noted Time PHQ-9 Depression Total Score: 0 08/01/19 22 2:12 PM CDT documented as of this encounter Care Teams Biostatistics Professor Relationship Specialty Start Date End Date Pankaj Rosenberg MD 1188 [facility] [address] [place] [address] PCP - General INTERNAL MEDICINE 06/15/21 documented as of this encounter
--- OUTSIDE RECORDS SUMMARY | 2024-05-13 10:51 | XMS_ITS | Encounter Summary ---
Author Organization [facility] Address [address] [place] [address]. [place], [place] [address] [place] [address] Care Team Providers Care City Designer Name Role Phone Pankaj Rosenebrg MD Primary Care Provider [phone] Reason for Visit * Reason Onset Date Comments Follow Up Call 02/08/2022 Encounter Details Date Type Department Care Team (Late st Contact Info) Description 02/08/2022 Telephone [facility] Medical Group Multispecialty Care - [place] [address] [address] [place], [place] [address] Pankaj Rosenberg MD [address] [place] [address] 157 [place] [address] Follow Up Call Social History [...] on file Legal Sex Male 2:58 PM MANUFACTURING ADVISOR Gender Identity Male 07/13/2021 5:19 AM MANUFACTURING ADVISOR Sexual Orientation Straight 07/13/2021 5: 19 AM MANUFACTURING ADVISOR documented as of this encounter Progress Notes * Pankaj Rosenberg MD - 02/08/2022 3:27 PM CDT help desk manager transferred call to me regarding: [employer] called and questions answered for patient with regards to when his last visit was. documented in this encounter Plan of Treatment Upcoming Encounters Date Type Department Care Team (Late st Contact Info) Description 05/15/2024 3:30 PM MANUFACTURING ADVISOR Appointment [facility] [place] [address] Pankaj Rosenberg MD [address] [place] [address] 05/25/2024 12:45 PM MANUFACTURING ADVISOR Office Visit [facility] Physical Therapy [address] [place] [address] Pankaj Rosenberg MD [address] [place] [address] Maya Magaña, [place] [address] 05/30/2024 3:40 PM MANUFACTURING ADVISOR Office Visit [facility] Multispecialty Care - [place] [address] [place] [address] Pankaj Rosenberg MD [address] [place] [address] 06/20/2024 3:40 PM MANUFACTURING ADVISOR [facility]icine [facility] [place] [address] [place] [address] Pankaj Rosenberg MD [facility] [address] [address] 06/21/2024 1:00 PM MANUFACTURING ADVISOR Office Visit [facility] Orthopedic & Sports Medicine - [place] [address] [place] [address] Jose Ratliff MD [address] [address] [place] [address] 03/27/2025 1:00 PM MANUFACTURING ADVISOR Office Visit [facility] Multispecialty Care - [facility] 3 [facility] [place] [address] Bob Oneal MD [address] [facility] [address] [place] [address] documented as of this encounter Visit Diagnoses Not on filedocumented in this encounter Additional Health Concerns Assessment Noted Time PHQ-9 Depression Total Score: 0 08/01/19 2:12 PM CDT documented as of this encounter Care Teams City Designer Relationship Specialty Start Date End Date Pankaj Rosenberg MD [address] [address] PCP - General INTERNAL MEDICINE 06/15/21 documented as of this encounter
--- OUTSIDE RECORDS SUMMARY | 2024-05-13 10:51 | XMS_ITS | Encounter Summary ---
Author Organization [facility] Address [address] [place] [address]. [place], [place] [address] [place] [address] Care Team Providers Care Assignment Clerk Name Role Phone Pankaj Rosenberg MD Primary Care Provider [phone] Encounter Details Date Type Department Care Team (Latest Contact Info) Description 11/18/2021 Travel Social History Tobacco Use Types Packs/Day [...] on file Legal Sex Male 2:58 PM FACULTY INSTRUCTOR Gender Identity Male 07/13/2021 5:19 AM FACULTY INSTRUCTOR Sexual Orientation Straight 07/13/2021 5: 19 AM FACULTY INSTRUCTOR COVID-19 Exposure Response Date Recorded In the last 10 days, have yo u been in contact with someone who was confirmed or suspected to have Coronavirus/COVID-19? No / Unsure 11/18/2021 2:18 PM CDT documented as of this encounter Plan of Treatment Upcoming Encounters Date Type Department Care Team (Late st Contact Info) Description 05/15/2024 3:30 PM FACULTY INSTRUCTOR Appointment [facility] [place], [place] [address] Pankaj Rosenberg MD [address] [address] 05/25/2024 12:45 PM FACULTY INSTRUCTOR Office Visit [facility] Physical Therapy [facility] [address] [place] [address] Pankaj Rosenberg MD 1188 [facility] 157 [place] [address] Maya Magaña, [place] [address] 05/30/2024 3:40 PM FACULTY INSTRUCTOR Office Visit [facility] Medical [facility] Multispecialty [facility] Emergency Department - [place] [address] [facility] [address] [place] [address] Pankaj Rosenberg MD [address] [address] 06/20/2024 3:40 PM FACULTY INSTRUCTOR Telemedicine [facility] Emergency Department - [address] [place] [address] Pankaj Rosenberg MD [address] [address] 06/21/2024 1:00 PM FACULTY INSTRUCTOR Office Visit [facility] Medical Group Orthopedic & Sports Medicine - [place] [address] [place] [address] Jose Ratliff MD [address] [address] [place] [address] 03/27/2025 1:00 PM FACULTY INSTRUCTOR Office Visit [facility] Medical [facility] Multispecialty Care - [facility] 3 [facility], [address] [place] [address] Bob Oneal MD [address] [place] [address] documented as of this encounter Visit Diagnoses Not on filedocumented in this encounter Additional Health Concerns Assessment Noted Time PHQ-9 Depression Total Score: 0 08/01/19 22 2:12 PM CDT documented as of this encounter Care Teams Assignment Clerk Relationship Specialty Start Date End Date Pankaj Rosenberg MD [address] [address] PCP - General INTERNAL MEDICINE 06/15/21 documented as of this encounter
--- OUTSIDE RECORDS SUMMARY | 2024-05-13 10:51 | XMS_ITS | Encounter Summary ---
Author Organization [facility] Address [address] [place] [address]. [place], [place] [address] [place] [address] Care Team Providers Care Assessment Expert Name Role Phone Pankaj Rosenberg MD Primary Care Provider [phone] Encounter Details Date Type Department Care Team (Latest Contact Info) Description 12/24/2021 Scan MG HEALTH INFO SRVCS Scanned, Doc Med Group Social History Tobacco Use Types Packs/Day Years Used Date Smoking Tobacco: Never Smokeless Tobacco: Former Snuff, Chew Quit: 08/14/2020 Comments:counseled by Dr Sammie gallardo Alcohol Use Standard Drinks/Week Comments Yes 5 (1 standard drink = 0.6 oz pur e alcohol) PHQ-2 Answer Date Recorded Patient Health Questionnaire-2 Score 0 06/15/2022 Sex and Gender Information Value Date Recorded Sex Assigned at Not on file Legal Sex Male 2:58 PM AEMT Gender Identity Male 07/13/2021 5:19 AM AEMT Sexual Orientation Straight 07/13/2021 5: 19 AM AEMT COVID-19 Exposure Response Date Recorded In the last 10 days, have yo u been in contact with someone who was confirmed or suspected to have Coronavirus/COVID-19? No / Unsure 06/15/2022 1:57 PM AEMT documented as of this encounter Plan of Treatment Upcoming Encounters Date Type Department Care Team (Late st Contact Info) Description 05/15/2024 3:30 PM AEMT [place]ointment [place] [address] Pankaj Rosenberg MD [address] [address] 05/25/2024 12:45 PM AEMT Office Visit [facility] Physical Therapy [facility] [address] [address] Pankaj Rosenberg MD [address] [address] Maya Magaña, [place] [address] 05/30/2024 3:40 PM AEMT Office Visit [facility] - [place] [address] [address] [place] [address] Pankaj Rosenberg MD [address] [address] 06/20/2024 3:40 PM AEMT [facility] - [place] [address] [address] [place] [address] Pankaj Rosenberg MD [address] [address] 06/21/2024 1:00 PM AEMT Office Visit [facility] Medical Group Orthopedic & Sports Medicine - [place] [address] [place] [address] Jose Ratliff MD [address] [address] [place] [address] 03/27/2025 1:00 PM AEMT Office Visit [facility] Medical [facility]ty [facility] - [facility] 3 [facility] [address] [place] [address] Bob Oneal MD [address] [address] documented as of this encounter Visit Diagnoses Not on filedocumented in this encounter Additional Health Concerns Assessment Noted Time PHQ-9 Depression Total Score: 0 08/01/19 22 2:12 PM CDT documented as of this encounter Care Teams Assessment Expert Relationship Specialty Start Date End Date Pankaj Rosenberg MD 1188 [facility] 157 [place] [address] PCP - General INTERNAL MEDICINE 06/15/21 documented as of this encounter
--- OUTSIDE RECORDS SUMMARY | 2024-05-13 10:51 | XMS_ITS | Encounter Summary ---
Author Organization [facility] Address [address] [place] [address]. [place], [place] [address] [place] [address] Care Team Providers Care Pig Conveyor Operator Name Role Phone Pankaj Rosenberg MD Primary Care Provider [phone] Reason for Visit * Reason Onset Date Comments Record Request 02/09/2022 Encounter Details Date Type Department Care Team (Late st Contact Info) Description 02/09/2022 Telephone [facility] Multispecialty Care - [place] [address] [address] [place], [place] [id number] Pankaj Rosenberg MD [address] [place] [address] [address] [place], [place] [id number] Record Request Social History Tobacco Use Types Packs/Day [...] file Legal Sex Male 2:58 PM ASSISTANT CHILD CARE TEACHER Gender Identity Male 07/13/2021 5:19 AM ASSISTANT CHILD CARE TEACHER Sexual Orientation Straight 07/13/2021 5: 19 AM ASSISTANT CHILD CARE TEACHER documented as of this encounter Progress Notes * Sanaz Cherry MA - 02/09/2022 2:57 PM CDT Rcvd fax from [employer] requesting most recent progress note regarding sleep apnea . Pt is using this company for his cpap & supplies 11/18/21 progress note was faxed for continuation ofcare documented in this encounter Plan of Treatment Upcoming Encounters Date Type Department Care Team (Late st Contact Info) Description 05/15/2024 3:30 PM ASSISTANT CHILD CARE TEACHER Appointment [facility] [place] [address] Pankaj Rosenberg MD [address] [place] [address] 05/25/2024 12:45 PM ASSISTANT CHILD CARE TEACHER Office Visit [facility] Physical Therapy [address] [place] [address] Pankaj Rosenberg MD [address] [place] [address] Maya Magaña, [place] [address] 05/30/2024 3:40 PM ASSISTANT CHILD CARE TEACHER [facility] [address] [address] Pankaj Rosenberg MD [address] [place] [address] 06/20/2024 3:40 PM ASSISTANT CHILD CARE TEACHER Telemedicine [facility] - [place] [address] [address] [place] [address] Pankaj Rosenberg MD [address] [address] 06/21/2024 1:00 PM ASSISTANT CHILD CARE TEACHER Office Visit [facility] - [place] [address] [place] [address] Jose Ratliff MD [address] [address] [place] [address] 03/27/2025 1:00 PM ASSISTANT CHILD CARE TEACHER Office Visit [facility] Multispecialty Care - [facility] [address] [facility] [place] [id number] Bob Oneal MD [facility] [address] [place] [address] documented as of this encounter Visit Diagnoses Not on filedocumented in this encounter Additional Health Concerns Assessment Noted Time PHQ-9 Depression Total Score: 0 08/01/19 22 2:12 PM CDT documented as of this encounter Care Teams Pig Conveyor Operator Relationship Specialty Start Date End Date Pankaj Rosenberg MD [address] [address] PCP - General INTERNAL MEDICINE 06/15/21 documented as of this encounter
--- OUTSIDE RECORDS SUMMARY | 2024-05-13 10:51 | XMS_ITS | Encounter Summary ---
Author Organization [facility] Address [address] [place] [address]. [place], [place] [address] [place] [address] Care Team Providers Care Assistant Track Coach Name Role Phone Pankaj Rosenberg MD Primary Care Provider [phone] Reason for Visit * Reason Onset Date Comments Other 12/29/2021 Encounter Details Date Type Department Care Team (Late st Contact Info) Description 12/29/2021 Telephone [facility] Multispecialty Care - [place] [address] [address] [place], [place] [phone] Pankaj Rosenberg MD [address] [place] [address] 157 [place] [address] Other Social History Tobacco Use [...] on file Legal Sex Male 2:58 PM JUNIOR SALES REPRESENTATIVE Gender Identity Male 07/13/2021 5:19 AM JUNIOR SALES REPRESENTATIVE Sexual Orientation Straight 07/13/2021 5: 19 AM JUNIOR SALES REPRESENTATIVE documented as of this encounter Progress Notes * Roberto Moffett - 12/29/2021 1:37 PM CDT Patient called to notify that he finally received his CPAP machine. documented in this encounter Plan of Treatment Upcoming Encounters Date Type Department Care Team (Late st Contact Info) Description 05/15/2024 3:30 PM JUNIOR SALES REPRESENTATIVE Appointment [facility] [place] [address] Pankaj Rosenberg MD [address] [place] [address] 05/25/2024 12:45 PM JUNIOR SALES REPRESENTATIVE Office Visit [facility] Physical Therapy [address] [place] [address] Pankaj Rosenberg MD [facility] [address] Maya Magaña, [place] [address] 05/30/2024 3:40 PM JUNIOR SALES REPRESENTATIVE Office Visit [facility] Medical [facility] Multispecialty Care - [place] [address] [address] [place] [address] Pankaj Rosenberg MD [facility] [address] [address] 06/20/2024 3:40 PM JUNIOR SALES REPRESENTATIVE Telemedicine [facility] Medical [facility] Multispecialty Care - [place] [address] [address] [place] [address] Pankaj Rosenberg MD [facility] [address] [address] 06/21/2024 1:00 PM JUNIOR SALES REPRESENTATIVE Office Visit [facility] Orthopedic & Sports Medicine - [address] [address] Jose Ratliff MD [address] [place] [address] [place] [address] 03/27/2025 1:00 PM JUNIOR SALES REPRESENTATIVE Office Visit [facility] Multispecialty Care - [facility] [address] [place] [id number] Bob Oneal MD [address] [facility] [address] [place] [address] documented as of this encounter Visit Diagnoses Not on filedocumented in this encounter Additional Health Concerns Assessment Noted Time PHQ-9 Depression Total Score: 0 08/01/19 22 2:12 PM CDT documented as of this encounter Care Teams Assistant Track Coach Relationship Specialty Start Date End Date Pankaj Rosenberg MD [address] [address] PCP - General INTERNAL MEDICINE 06/15/21 documented as of this encounter
--- OUTSIDE RECORDS SUMMARY | 2024-05-13 10:52 | XMS_ITS | Encounter Summary ---
Author Organization [facility] Address [address] [place] [address]. [place], [place] [address] [place] [address] Care Team Providers Care Rim Roller Setter Name Role Phone Pankaj Rosenberg MD Primary Care Provider [phone] Reason for Referral * Consultation (Routine) - Closed Specialty Diagnoses / Procedures Referred By Contact Referred To Contact SLEEP & RESPIRATORY CARE Diagnoses KARRIE (obstructive sleep apnea) Pankaj Rosenberg MD [address] [place] [address] Phone: tel: fax: [facility] Medical [facility] - [address] [address] Phone: tel: fax: Referral ID Status Reason Start Date Expiration Date V isits Requested Visits Authorized [id number] Closed Specialty Services 08/21/2021 09/20/2022 99 99 Reason for Visit * Reason Comments Results Pt is here for sleep study results, DM, HTN Encounter Details Date Type Department Care Team (Latest Contact Info) Description 08/21/2021 2:30 PM CDT Office Visit [facility] Medical Group Multispecialty Care - [place] [address] [address] [place] [address] Pankaj Rosenberg MD [facility] [address] [address] Results (Pt is here for sleep study results, DM, HTN ) Social History Tobacco Use Types Packs/Day [...] on file Legal Sex Male 2:58 PM RESEARCH ADVISOR Gender Identity Male 07/13/2021 5:19 AM RESEARCH ADVISOR Sexual Orientation Straight 07/13/2021 5: 19 AM RESEARCH ADVISOR COVID-19 Exposure Response Date Recorded In the last 10 days, have yo u been in contact with someone who was confirmed or suspected to have Coronavirus/COVID-19? No / Unsure 08/21/2021 2:04 PM CDT documented as of this encounter Last Filed Vital Signs Vital Sign Reading Time Taken Comments Blood Pressure 157/93 08/21/2021 3:37 PM CDT Pulse 111 08/21/2021 2:16 PM CDT Temperature 37.4 ??C (99.3 ??F) 08/21/2021 2:16 PM CD T Respiratory Rate 18 08/21/2021 2:16 PM CDT Oxygen Saturation 98% 08/21/2021 2:16 PM CDT Inhaled Oxygen Concentration - - Weight 120.7 kg (266 lb) 08/21/2021 2:16 PM CDT Height 180.3 cm (5' 11 ) 08/21/2021 2:16 PM CDT Body Mass Index 37.1 08/21/2021 2:16 PM CDT documented in this encounter Patient Instructions * Patient Instructions* Pankaj Rosenberg MD - 08/21/2021 2:30 PM CDT Follow up in 3 months. Please get your diabetic eye exam done. Continue to work on weight loss. Patient Education Patient Education Lowering Your Risk of High Blood Pressure About this topic High blood pressure happens when your heart must work harder than normal to pump blood to the body.Blood pressure measures the pressure in your arteries when your heart beats. Your arteries are tubes that carry blood from your heart to the rest of your body. If the arteries are clogged, stiff, or squeeze too tightly, the pressure goes up and your heart must work harder than normal. Your blood pressure has two numbers. The top number is the systolic number. It measures the highestamount of pressure in the artery when the heart is beating. The second number or bottom number is the diastolic number. It is the lowest pressure in the artery when the heart is resting. Sometimes diseases, like kidney disease or abnormal hormones, can lead to high blood pressure. Mostpeople have no known cause or reason for high blood pressure. In most cases, high blood pressure cannot be cured. You must control it with drugs and lifestyle changes. If high blood pressure is not controlled, it can lead to heart attack, stroke, and kidney problems. Many people with high blood pressure do not feel sick and don???t know that they have it until their blood pressure is checked. However, this does not mean that you do not need treatment for high blood pressure. General Many things can raise your chances of having high blood pressure. Some of them you can control and others you cannot. It is important to know about all of them. Some health conditions may raise your chances for having high blood pressure. Take extra care and work with your doctor to keep these health problems under control. Your risk for high blood pressure is higher if you have: ?? Diabetes ?? Kidney disease ?? High cholesterol ?? Obstructive sleep apnea ?? Hormone problems - thyroid disease, Edson???s syndrome, acromegaly, hyperaldosteronism, and pheochromocytoma ?? Lupus ?? Scleroderma You may have control over some things that make you more likely to have high blood pressure. It is important to know about them and work to keep these problems under control. You are at a higher riskof high blood pressure if you: ?? Smoke or use tobacco ?? Use alcohol or illegal drugs ?? Do not exercise regularly ?? Are overweight ?? Have a lot of stress in your life ?? Have a poor diet or a diet high in salt or sodium ?? Have a diet low in potassium ?? Take certain medications Some things you are not able to control, but they are important to know about. For example, men aremore likely to have high blood pressure before about age 60. However, women are more likely to havehigh blood pressure after menopause. You are also at a higher risk for high blood pressure if you: ?? Are older. Your risk gets higher the older you are. ?? Have a family history of high blood pressure ?? Are What lifestyle changes are needed? ?? You may be asked to get a blood pressure monitor to use at home. Learn how to use it and record your blood pressure results between doctor visits. ?? Stop smoking and using tobacco. Smoking causes your arteries to narrow and raises your blood pressure. Talk to your doctor if you need help quitting. ?? Limit how much alcohol you drink to no more than 1 drink a day for women or 2 drinks a day for men. ?? Do not use illegal drugs. Talk to your doctor if you need help quitting. ?? If you are under a great deal of stress, ask your doctor for advice on how to lower the stress. You may need to learn a variety of stress reduction methods, such as yoga, meditation, guided imagery, annamarie chi, or even have a drug prescribed to help you. ?? Eat a healthy, well-balanced diet. Try to limit how much salt or sodium you eat each day. ?? Lose weight if you are overweight. ?? Get regular exercise. This can help your heart pump better, lower your blood pressure, and help you lose weight. ?? Work with your doctor to treat problems like sleep apnea, diabetes, high cholesterol, and kidneyproblems. ?? Talk with your doctor or pharmacist about all of your drugs, including oppo-axq-ivghyvl medicines, to see if they may cause high blood pressure. What drugs may be needed? Your doctor may order drugs to: ?? Lower blood pressure ?? Control blood sugar ?? Lower cholesterol levels ?? Help with your mood ?? Help you stop using tobacco Take your drugs exactly as ordered. Controlling problems like high blood pressure, diabetes, or high cholesterol are all ways to lower your chances of having high blood pressure. Will physical activity be limited? It is good to get some kind of exercise each day. Walking, gardening, swimming, riding a bike, or dancing are all good ways to add exercise to your life. Always check with your doctor if you have questions about starting an exercise program. What changes to diet are needed? Eat a healthy diet. Talk to your doctor or a dietitian if you need to lose weight. ?? Do not use salt on your food. Use herbs and spices to improve the taste. ?? Do not eat more than 2.3 grams of sodium a day. If you have high blood pressure, aim for 1.5 grams of sodium a day. Read food labels to see how much sodium is in a food. ?? Limit coffee, tea, and soda to 2 cups (480 mL) a day. ?? Eat lots of fruits, vegetables, and low-fat dairy products. ?? Avoid fatty foods, like fried foods or chips. ?? Talk with your dietitian about the diet changes you need and the number of calories you should eat each day. When do I need to call the doctor? Activate the emergency medical system right away if you have signs of a heart attack. Call 911 in the [place] or [place]. The sooner treatment begins, the better your chances for recovery. Call for emergency help right away if you have: ?? Signs of heart attack: ? Chest pain ? Pain in other areas of the upper body (either or both arms, jaw, neck, etc.) ? Trouble breathing ? Fast heartbeat ? Feeling dizzy ?? Signs of stroke: ? Sudden numbness or weakness of the face, arm, or leg, especially on one side of the body ? Sudden confusion, trouble speaking or understanding ? Sudden trouble seeing in one or both eyes ? Sudden trouble walking, dizziness, loss of balance or coordination ? Sudden severe headache with no known cause ? Face droops on one side Call your doctor if you have: ?? Blood pressure that is 20 points higher than your normal top or bottom number ?? Two blood pressure readings higher than 180/120 ?? Very bad headache ?? Confusion ?? Sudden change in hearing or eyesight ?? Nosebleed Where can I learn more? [employer] https://www.heart.org/en/health-topics/mxww-pbzqf-rgzchgkc/rxmacze-mli-pue-make- zy-qaxkrv-xlbi-blood-pressure [employer] https://www.heart.org/en/health-topics/xsnf-mfmad-ywzlvszk/uaf-dpkp-jrksz-pressu kr-ho-n-silent-killer/rjcd-jjto-ybzo-errtqaa-dmc-twmu-blood-pressure Centers for Disease Control and Prevention https://www.cdc.gov/bloodpressure/risk_factors.htm NHS Choices https://www.nhs.uk/conditions/dabs-ncbdw-rmirlbjv-hypertension/ Last Reviewed Date 2019-08-09 Consumer Information Use and Disclaimer This generalized information is a limited summary of diagnosis, treatment, and/or medication information. It is not meant to be comprehensive and should be used as a tool to help the user understand and/or assess potential diagnostic and treatment options. It does NOT include all information about conditions, treatments, medications, side effects, or risks that may apply to a specific patient. Itis not intended to be medical advice or a substitute for the medical advice, diagnosis, or treatment of a health care provider based on the health care provider's examination and assessment of a patient???s specific and unique circumstances. Patients must speak with a health care provider for complete information about their health, medical questions, and treatment options, including any risks orbenefits regarding use of medications. This information does not endorse any treatments or medications as safe, effective, or approved for treating a specific patient. [employer] and its affiliates disclaim any warranty or liability relating to this information or the use thereof. The use of this information is governed by the Terms of Use, available at https://www.Sound[employer].com/en/solutions/lexicomp/about/mili Copyright Copyright ?? 2020 [employer] and its affiliates and/or licensors. All rights reserved. documented in this encounter Progress Notes * Pankaj Rosenberg MD - 08/21/2021 2:30 PM CDTSummary: Follow-up note Images from the original note were not included. Internal Medicine Outpatient Progress Note CC: Results (Pt is here for sleep study results, DM, HTN ) HPI: Chuck Barlow is a 26-year-old male who presents for follow-up sleep study results and diabetes mellitus. Patient recently underwent sleep study and results that showed severe obstructive sleep apnea. Currently does not follow routinely with pulmonary. Notes associated midday fatigue and excessive snoring. He is currently on 25 mg daily of sitagliptin and doing well on his current dose. A1C at todays visit is 5.6%. Doing well with no side effects. He is currently on 20 mg of lisinopril daily and currently not controlled. No side effects. No concerns for chest pain or shortness of breath, no leg edemaor cough. Problem List Patient Active Problem List Diagnosis [...] in bowel function ??? Epigastric burning sensation Past Medical History: Diagnosis Date ??? Allergy ??? Arthrogryposis ??? Gastroschisis ??? Hyperlipidemia ??? Hypertension ??? Obstructive sleep apnea Past Surgical History: Procedure Laterality Date ??? 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 NONE ??? SEPTOPLASTY Family History Problem Relation Name Age of Onset ??? No Known Problems Mother ??? No Known Problems Father ??? Heart Disease Maternal Grandfather ??? Heart Disease Paternal Grandfather ??? Thyroid Disease Paternal Grandfather Social History Tobacco Use ??? Smoking status: Never Smoker ??? Smokeless tobacco: Former User Types: Snuff, Chew ??? Tobacco comment: counseled by Dr Rosenberg Vaping Use ??? Vaping Use: Never used Substance Use Topics ??? Alcohol use: Yes Alcohol/week: 5.0 standard drinks Types: 3 Cans of beer per week ??? Drug use: Never Medications: Outpatient Medications Marked as Taking for the 08/21/21 encounter (Office Visit) with Pankaj Rosenberg MD Medication Sig Dispense Refill ??? amLODIPine 10 MG tablet Take 1 tablet (10 mg total) by mouth daily. 90 tablet 1 ??? AZELASTINE 0.1 % nasal spray USE 1 SPRAY IN EACH NOSTRIL TWICE DAILY DIRECTED 90 mL 1 ??? cetirizine 5 MG chewable tablet Chew 5 mg by mouth daily. ??? CPAP DEVICE, DME, Use daily when sleeping or taking a nap. 1 Device 0 ??? lisinopril 40 MG tablet Take 1 tablet (40 mg total) by mouth daily. 90 tablet 1 ??? montelukast (SINGULAIR) 10 MG tablet Take 1 tablet (10 mg total) by mouth nightly at bedtime. 30 tablet 3 ??? omeprazole 40 MG capsule Take 1 capsule (40 mg total) by mouth daily. 30 capsule 2 ??? pravastatin 40 MG tablet Take 1 tablet (40 mg total) by mouth nightly at bedtime. 90 tablet 1 ??? SITagliptin (JANUVIA) 25 mg Tab Take 1 tablet (25 mg total) by mouth daily. 30 tablet 5 ??? SUCRALFATE 1 G tablet TAKE 1 TABLET(1 GRAM) BY MOUTH THREE TIMES DAILY BEFORE MEALS 120 tablet 0 ??? triamcinolone acetonide (NASACORT ALLERGY 24HR) 55 MCG/ACT nasal inhaler Allergies: No Known Allergies Review of Systems Constitutional: Positive for malaise/fatigue (fatigue.). Negative for chills, diaphoresis, fever and weight loss. HENT: Negative. Eyes: Negative. Respiratory: Negative. Cardiovascular: Negative for chest pain, palpitations, orthopnea, claudication, leg swelling and PND. Gastrointestinal: Negative. Genitourinary: Negative. Musculoskeletal: Negative. Neurological: Negative. Objective: Filed Vitals: 08/21/21 1416 08/21/21 1537 BP: (!) 148/82 (!) 157/93 Pulse: 111 Resp: 18 Temp: 99.3 ??F (37.4 ??C) TempSrc: Temporal SpO2: 98% Weight: 120.7 kg (266 lb) Height: 5' 11 (1.803 m) Body mass index is 37.1 kg/m??. General alert, cooperative, no distress HEENT [...] Encounter Diagnose(s) ICD-10-CM ICD-9-CM SNOMED CT(R) 1. Type 2 diabetes mellitus with hyperglycemia, without long-term current use of insulin ([facility]) E11.65 250.00 TYPE 2 DIABETES MELLITUS A1C (BACK OFFICE) 790.29 SITagliptin (JANUVIA) 25 mg Tab 2. KARRIE (obstructive sleep apnea) G47.33 327.23 OBSTRUCTIVE SLEEP APNEA SYNDROME CPAP DEVICE, DME, Ambulatory referral to Pulmonology ([facility]) 3. Primary hypertension I10 401.9 ESSENTIAL HYPERTENSION lisinopril 40 MG tablet 4. Gastroesophageal reflux disease without esophagitis K21.9 530.81 GASTROESOPHAGEAL REFLUX DISEASEWITHOUT ESOPHAGITIS omeprazole 40 MG capsule 5. Mixed hyperlipidemia E78.2 272.2 MIXED HYPERLIPIDEMIA pravastatin 40 MG tablet 6. Need for prophylactic vaccination against Streptococcus pneumoniae (pneumococcus) Z23 V03.82 REQUIRES VACCINATION [53401] Pneumovax 23 (Pneumococcal) 1. Type 2 diabetes mellitus with hyperglycemia, without long-term current use of insulin ([facility]) - controlled - A1C (BACK OFFICE) - continue SITagliptin (JANUVIA) 25 mg Tab; Take 1 tablet (25 mg total) by mouth daily. Dispense: 30 tablet; Refill: 5 - patient already scheduled for his diabetic eye exam and will follow up on results. 2. KARRIE (obstructive sleep apnea) - CPAP DEVICE, DME,; Use daily when sleeping or taking a nap. Dispense: 1 Device; Refill: 0 - faxing over order for CPAP, order paper and office notes to [facility] - Ambulatory referral to Pulmonology ([facility]) 3. Primary hypertension - Patient currently uncontrolled on current treatment for hypertension. Will continue and adjust medications as ordered. Continued to discuss weight loss, adequate cardiovascular fitness. DASH diet was discussed as well as decrease in sodium intake. BP goal of ~ 120/80 expressed. Weight loss encouraged. - increase to lisinopril 40 MG tablet; Take 1 tablet (40 mg total) by mouth daily. Dispense: 90 tablet; Refill: 1 4. Gastroesophageal reflux disease without esophagitis - stable for now and follow up with GI as planned - continue omeprazole 40 MG capsule; Take 1 capsule (40 mg total) by mouth daily. Dispense: 30 capsule; Refill: 2 5. Mixed hyperlipidemia - continue with pravastatin 40 MG tablet; Take 1 tablet (40 mg total) by mouth nightly at bedtime. Dispense: 90 tablet; Refill: 1 - had not tolerated atorvastatin or rosuvastatin in the past per patient as these increase his liver numbers 6. Need for prophylactic vaccination against Streptococcus pneumoniae (pneumococcus) - [04642] Pneumovax 23 (Pneumococcal) Counseling given: Yes Comment: counseled by Dr Rosenberg I spent 30 minutes today reviewing the patient's medical record, obtaining history, performing an exam, ordering medications, tests, and/or procedures, documenting in the medical record, referring and/or communicating with other health care providers, counseling and educating the patient/family/caregiver, reviewing and communicating test results and coordination of care. Side effects and less common but more severe adverse effects of recommended medical therapies were explained to the patient. Follow up office visit in 3 months. Requested MyChart or telephone follow up prn if symptoms change, worsen, or persist, or if side effect of treatment is experienced. DARREL: This dictation was at least in part performed using Anne Fogarty speak and there may be some inherent flaws in this bmw sales consultant due to the nature of this program. Pankaj Rosenberg MD Internal Medicine [facility], [facility]. documented in this encounter Plan of Treatment Upcoming Encounters Date Type Department Care Team (Late st Contact Info) Description 05/15/2024 3:30 PM RESEARCH ADVIS[address] [facility] [place] [address] Pankaj Rosenberg MD [address] [address] 05/25/2024 12:45 PM RESEARCH ADVISOR Office Visit [facility] Physical Therapy [address] [place] [address] Pankaj Rosenberg MD [address] [address] Maya Magaña, [place] [address] 05/30/2024 3:40 PM RESEARCH ADVISOR Office Visit [facility] Medical [facility] Multispecialty Care - [address] [place] [address] [address] [place] [address] Pankaj Rosenberg MD [facility] [address] [address] 06/20/2024 3:40 PM RESEARCH ADVISOR Telemedicine [facility] - [place] [address] [address] [place] [address] Pankaj Rosenberg MD [facility] [address] [address] 06/21/2024 1:00 PM RESEARCH ADVISOR Office Visit [facility] Medical Group Orthopedic [facility] - [place] [address] [place] [address] Jose Ratliff MD [address] [address] [place] [address] 03/27/2025 1:00 PM RESEARCH ADVISOR Office Visit [facility] Medical Group Multispecialty Care - [facility] [address] [facility] [address] [place] [address] Bob Oneal MD 3 [facility] [address] [place] [address] Scheduled Referrals Name Type Priority Associated Diagnoses Orde r Schedule Ambulatory referral to Pulmonology ([facility]) Referral Routine KARRIE (obstructive sleep apnea) Ordered: 08/21/2021 documented as of this encounter Procedures Procedure Name Priority Date/Time Associated Diagnosis Comments HEMOGLOBIN, GLYCOSYLATED Routine 08/21/2021 Type 2 diabetes mellitus with hyperglycemia, without long-term current use of insulin ([facility]) documented in this encounter Results * A1C (BACK OFFICE) (08/21/2021) HGB A1C 5.6 % [address], [place] 08/21/2021 Pankaj Rosenberg MD LABORATORY Final Result [place] [address] [address], [address] [place] [address], documented in this encounter Visit Diagnoses Diagnosis Type 2 diabetes mellitus with hyperglycemia, without long-term current use of insulin ([facility])- Primary KARRIE (obstructive sleep apnea) Obstructive sleep apnea (adult) (pediatric) Primary hypertension Unspecified essential hypertension Gastroesophageal reflux disease without esophagitis Esophageal reflux Mixed hyperlipidemia Need for prophylactic vaccination against Streptococcus pneumoniae (pneumococcus) Need for prophylactic vaccination against streptococcus pneumoniae (pneumococcus) documented in this encounter Additional Health Concerns Assessment Noted Time PHQ-9 Depression Total Score: 0 08/01/19 22 2:12 PM CDT documented as of this encounter Care Teams Rim Roller Setter Relationship Specialty Start Date End Date Pankaj Rosenberg MD [address] [facility] [address] [place] [address] PCP - General INTERNAL MEDICINE 06/15/21 documented as of this encounter
--- OUTSIDE RECORDS SUMMARY | 2024-05-13 10:52 | XMS_ITS | Encounter Summary ---
Author Organization [facility] Address [address] [place] [address]. [place], [place] [address] [place] [address] Care Team Providers Care V/Stol Landing Signal Officer Name Role Phone Pankaj Rosenberg MD Primary Care Provider [phone] Reason for Visit * Reason Onset Date Comments Follow Up Call 09/15/2021 Encounter Details Date Type Department Care Team (Late st Contact Info) Description 09/15/2021 Telephone [facility] Multispecialty Care - [place] [address] [address] [place], [place] [id number] Pankaj Rosenberg MD [address] [place] [address] [address] [place] [address] Follow Up Call Social History [...] on file Legal Sex Male 2:58 PM ORE CHARGER Gender Identity Male 07/13/2021 5:19 AM ORE CHARGER Sexual Orientation Straight 07/13/2021 5: 19 AM ORE CHARGER COVID-19 Exposure Response Date Recorded In the last 10 days, have yo u been in contact with someone who was confirmed or suspected to have Coronavirus/COVID-19? No / Unsure 08/26/2021 6:53 AM CDT documented as of this encounter Progress Notes * Pankaj Rosenberg MD - 09/15/2021 7:28 PM CDT Patient discharged from [facility] 09/15/2021. Please call and run and TCM questions and schedule him. Thanks Pankaj Rosenberg MD Internal Medicine [facility]. documented in this encounter Plan of Treatment Upcoming Encounters Date Type Department Care Team (Late st Contact Info) Description 05/15/2024 3:30 PM ORE CHARGER Appointment [facility] [place] [address] Pankaj Rosneberg MD [address] [place] [address] 05/25/2024 12:45 PM ORE CHARGER Office Visit [facility] Physical Therapy [address] [place] [address] [place] [address] [place] [address] Maya Magaña, [place] [address] 05/30/2024 3:40 PM ORE CHARGER [facility] [place] [address] [address] [place] [address] [place] [address] [place] [address] 06/20/2024 3:40 PM ORE CHARGER [facility] Emergency Department - [place] [address] [address] [place] [address] Pankaj Rosenberg MD 118[address] [facility] 157 [place] [address] 06/21/2024 1:00 PM ORE CHARGER Office Visit [facility] Orthopedic & Sports Medicine - [place] [address] [place] [address] Jose Ratliff MD [address] [facility] [address] [place] [address] 03/27/2025 1:00 PM ORE CHARGER Office Visit [facility] Mult[facility]ialty Care - [facility] [address] [facility] [place] [address] Bob Oneal MD 3 [facility] [address] [place] [address] documented as of this encounter Visit Diagnoses Not on filedocumented in this encounter Additional Health Concerns Assessment Noted Time PHQ-9 Depression Total Score: 0 08/01/19 22 2:12 PM CDT documented as of this encounter Care Teams V/Stol Landing Signal Officer Relationship Specialty Start Date End Date Pankaj Rosenberg MD 118[address] [facility] 157 [place] [address] PCP - General INTERNAL MEDICINE 06/15/21 documented as of this encounter
--- OUTSIDE RECORDS SUMMARY | 2024-05-13 10:52 | XMS_ITS | Encounter Summary ---
Author Organization [facility] Address [address] [place] [address]. [place] [address] [place] [address] Care Team Providers Care Senior Software Manager Name Role Phone Pankaj Rosenberg MD Primary Care Provider [phone] Reason for Visit * Reason Onset Date Comments Results 08/19/2021 Encounter Details Date Type Department Care Team (Late st Contact Info) Description 08/19/2021 Telephone [facility] Multispecialty Care - [address] [place] [phone] Bob Oneal MD 3 [facility] [place] [place] [address] Results Social History Tobacco Use Types Packs/Day [...] on file Legal Sex Male 2:58 PM COLOR CONTROL SUPERVISOR Gender Identity Male 07/13/2021 5:19 AM COLOR CONTROL SUPERVISOR Sexual Orientation Straight 07/13/2021 5: 19 AM COLOR CONTROL SUPERVISOR COVID-19 Exposure Response Date Recorded In the last 10 days, have yo u been in contact with someone who was confirmed or suspected to have Coronavirus/COVID-19? No / Unsure 08/18/2021 9:51 AM CDT documented as of this encounter Progress Notes * Gloria Braxton - 08/19/2021 11:14 AM CDT Chuck called and asked to speak with someone regarding his US results. Call transferred to [place]. documented in this encounter Plan of Treatment Upcoming Encounters Date Type Department Care Team (Late st Contact Info) Description 05/15/2024 3:30 PM COLOR CONTROL SUPERVISOR Appointment [facility] [address] Pankaj Rosenberg MD [address] [place] [address] 05/25/2024 12:45 PM COLOR CONTROL SUPERVISOR Office Visit [facility] Physical Therapy [address] [place] [address] Pankaj Rosenberg MD [address] [place] [address] Maya Magaña, [place] [address] 05/30/2024 3:40 PM COLOR CONTROL SUPERVISOR [facility] [place] [address] [address] [place] [address] Pankaj Rosenberg MD [address] [place] [address] 06/20/2024 3:40 PM COLOR CONTROL SUPERVISOR [facility] [place] [address] [address] [place] [address] Pankaj Rosenberg MD 1188 [facility] 157 [place] [address] 06/21/2024 1:00 PM COLOR CONTROL SUPERVISOR Office Visit [facility] Orthopedic & Sports Medicine - [place] [address] [place] [address] Jose Ratliff MD [address] [address] [place] [address] 03/27/2025 1:00 PM COLOR CONTROL SUPERVISOR Office Visit [facility] Mult[facility]pecialty Care - [facility] 3 [facility] [address] [place] [address] Bob Oneal MD [address] [facility] [address] [place] [address] documented as of this encounter Visit Diagnoses Not on filedocumented in this encounter Additional Health Concerns Assessment Noted Time PHQ-9 Depression Total Score: 0 08/01/19 2:12 PM CDT documented as of this encounter Care Teams Senior Software Manager Relationship Specialty Start Date End Date Pankaj Rosenberg MD 1188 [facility] 157 [place] [address] PCP - General INTERNAL MEDICINE 06/15/21 documented as of this encounter
--- OUTSIDE RECORDS SUMMARY | 2024-05-13 10:52 | XMS_ITS | Encounter Summary ---
Author Organization [facility] Address [address] [place] [address]. [place] [address] [place] [address] Care Team Providers Care Industrial X Ray Operator Name Role Phone Pankaj Rosenberg MD Primary Care Provider [phone] Reason for Visit * Auth/Cert Specialty Diagnoses / Procedures Referred By Horacio espinoza Referred To Contact Diagnoses Nausea and vomiting, unspecified vomiting type Change in bowel function Epigastric burning sensation Early satiety, nausea vomiting and epigastric burning of unclear etiology. Procedures UPPER GI ENDOSCOPY,DIAGNOSIS COLONOSCOPY,DIAGNOSTIC EGD COLONOSCOPY Referral ID Status Reason Start Date Expiration Date Visits Re quested Visits Authorized [id number] 1 1 Encounter Details Date Type Department Care Team (Late st Contact Info) Description 08/26/2021 8:09 AM CDT Anesthesia Event [facility] [address] [place] [address] Nishi Romero CRNA [address] [place] [address] Lisa Holt CRNA 2022 [place] [address] Anesthesia Record Procedure Summary Procedure Name Responsible Anesthesiologist Anesthesia Start Time Anesthesia Stop Time EGD Nishi Romero CRNA 08/26/21 0809 08/26 0841 Events Date Time Event Comment 08/26/2021 0723 0723 AN Anesthesia Prepped 0723 AN ASSET MANAGER Prepped 0809 An Start Patient ID and consent checked and patient reassessed. 0809 An Start Data 0810 AN Immediate Reassess The pa tient was reevaluated immediately before sedation or regional anesthesia. 0810 Face Mask Applied 0812 Anesthesia Ready 0841 An Stop 0841 an stop data 0842 Post Anesthetic Care Handoff I completed my handoff to the receiving nurse during which we: 1. Identified the patient 2. Identified the responsible provider 3. Reviewed the pertinent medical history 4. Discussed the surgical course 5. Reviewed intra-op anesthesia management and issues during anesthesia 6. Set expectations for post-procedure period 7. Allowed opportunity for questions and acknowledgement of understanding. Meds Name Total propofol (DIPRIVAN) 200 mg/20 mL injecti on 700 mg lidocaine (PF) (XYLOCAINE) 1% injection 100 mg midazolam 2 mg/2 mL injection 1 mg sodium chloride 0.9% infusion 500 mL * Agents Name O2 * Blood No blood administrations on file. Lines, Drains, and Airways Type Details Placement Removal Peripheral IV Placement Date: 08/14 08/04; Placement Time: 724; Placed Outside of This Facility?: No; Size: 20 G; Orientation: Left; Location: Hand; Site Prep: Chlorhexidine; Local Anesthetic: None; Inserted By: Rachel HURTADO; Insertion attempts: 1; Ultrasound-guided Placement?: No; Patient Tolerance: Tolerated well; Removal Date: 08/26/21; Removal Time: 905; Removal Reason: Patient Discharged 08/26/21724 by Kristen Flynn RN 08/26/21905 by Rachel Nichole RN documented in this encounter Social History [...] on file Legal Sex Male 2:58 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 No / Unsure 08/26/2021 6:53 AM CDT documented as of this encounter OR Notes * Anesthesia Postprocedure Evaluation - Nishi Romero CRNA - 08/26/2021 8:42 AM CDT Anesthesia Post-op Note Chuck Hinds Yen Procedure(s): EGD (N/A ) COLONOSCOPY WITH POLYPECTOMY (N/A ) Anesthesia type: MAC Vitals: 08/26/21711 BP: 139/89 Vitals: 08/26/21711 Pulse: 114 Vitals: 08/26/21711 Resp: 20 Vitals: 08/26/21711 Temp: 36.5 ??C Vitals: 08/26/21711 SpO2: 97% Patient Location: Phase II/Outpatient Level of Consciousness: sedated and responds to stimulation Pain Management: adequate analgesia Airway Patency: patent Respiratory Status: acceptable Cardiovascular Status: acceptable Post-Op Nausea: none Postoperative Hydration: euvolemic There were no known complications for this encounter. * Anesthesia Preprocedure Evaluation - Nishi Romero CRNA - 08/19/2021 9:12 AM CDT Anesthesia ROS/MED History Reviewed: Patient summary , Nursing notes , Family history anesthesia, Anesthesia history , Medications Pre-Anesthetic State: alert, awake and responds appropriately Pulmonary (+) sleep apnea, asthma, smoker (former) Cardiovascular Exercise tolerance:good (+) hypertension, hyperlipidemia Neuro/Psych neg neuro/psych ROS GI/Hepatic/Renal (+) GERD, liver disease, (fatty liver disease) Endo/Other (+) diabetes mellitus, obese, (Morbid) Physical Evaluation Airway Mallampati: III TM Distance: >3 FB Neck ROM: small mouth opening Dental No notable dental history Pulmonary Pulmonary exam normal Breath sounds clear to auscultation Cardiovascular Rhythm: regular Rate: normal Cardiovascular exam normal Anesthesia Plan ASA 3 Intravenous Induction Anesthesia type: MAC Plan for Airway: nasal cannula/simple face mask Informed Consent Anesthetic plan and risks discussed with patient of whom consent was obtained. . Cosigned by Bob Oneal MD at 08/29/2021 11:12 AM CDT documented in this encounter Plan of Treatment Upcoming Encounters Date Type Department Care Team (Late st Contact Info) Description 05/15/2024 3:30 PM PAINT PREP TECHNICIAN Appointment [facility] [place] [address] Pankaj Rosenberg MD [address] [place] [address] 05/25/2024 12:45 PM PAINT PREP TECHNICIAN Office Visit [facility] Physical Therapy [address] [place] [address] Pankaj Rosenberg MD [address] [place] [address] Maya Magaña, [place] [address] 05/30/2024 3:40 PM PAINT PREP TECHNICIAN [facility] [place] [address] [address] [place] [address] Pankaj Rosenberg MD [address] [place] [address] 06/20/2024 3:40 PM PAINT PREP TECHNICIAN [facility] - [place] [address] [address] [place] [address] Pankaj Rosenberg MD [address] [facility] [address] [place] [address] 06/21/2024 1:00 PM PAINT PREP TECHNICIAN Office Visit [facility] Orthopedic & Sports Medicine - [place] [address] [place] [address] Jose Ratliff MD [address] [facility] [address] [place] [address] 03/27/2025 1:00 PM PAINT PREP TECHNICIAN Office Visit [facility] Multispecialty Care - [facility] 3 [facility] [place] [phone] Bob Oneal MD 3 [facility] [address] [place] [address] documented as of this encounter Visit Diagnoses Not on filedocumented in this encounter Administered Medications Inactive Administered Medications - up to 3 most recent administrations Medication Order MAR Action Action Date Dose Rate Site lidocaine (PF) (XYLOCAINE) 1 % injection Intravenous, PRN, Starting on Tue08/26/21 at 0812, Until Tue08/26/21 at 0841, Anesthesia Intra-Op Given 08/26/2021 8:12 AM CDT 100 mg midazolam (VERSED) injection Intravenous, PRN, Starting on Tue08/26/21 at 0810, Until Tue08/26/21 at 0841, Anesthesia Intra-Op Given 08/26/2021 8:10 AM CDT 1 mg propofol (DIPRIVAN) IV bolus Intravenous, PRN, Starting on Tue08/26/21 at 0813, Until Tue08/26/21 at 0841, Anesthesia Intra-Op Given 08/26/2021 8:31 AM CDT 50 mg Given 08/26/2021 8:30 AM CDT 50 mg Given 08/26/2021 8:28 AM CDT 50 mg sodium chloride 0.9% infusion at 10 mL/hr, Intravenous, Continuous, Starting on Tue08/26/21 at 0730, Until Tue08/26/21 at 1125, Infuse at TKO rate. Use mini-drip tubing for ESRD patients., Pre-Op Restarted 08/26/2021 8:34 AM CDT Continued by Anesthesia 08/26/2021 8:09 AM CDT 10 mL/hr New Bag 08/26/2021 7:26 AM CDT 10 mL/hr documented in this encounter Additional Health Concerns Assessment Noted Time PHQ-9 Depression Total Score: 0 08/01/19 2:12 PM CDT documented as of this encounter Care Teams Industrial X Ray Operator Relationship Specialty Start Date End Date Pankaj Rosenberg MD [address] [address] PCP - General INTERNAL MEDICINE 06/15/21 documented as of this encounter
--- OUTSIDE RECORDS SUMMARY | 2024-05-13 10:52 | XMS_ITS | Encounter Summary ---
Author Organization [facility] Address [address] [place] [address]. [place], [place] [address] [place] [address] Care Team Providers Care Residential Leasing Agent Name Role Phone Pankaj Rosenberg MD Primary Care Provider [phone] Reason for Visit * Auth/Cert Specialty Diagnoses / Procedures Referred By Horacio espinoza Referred To Contact Diagnoses Nausea and vomiting, unspecified vomiting type Change in bowel function Epigastric burning sensation Early satiety, nausea vomiting and epigastric burning of unclear etiology. Procedures UPPER GI ENDOSCOPY,DIAGNOSIS COLONOSCOPY,DIAGNOSTIC EGD COLONOSCOPY Referral ID Status Reason Start Date Expiration Date Visits Re quested Visits Authorized [id number] 1 1 Encounter Details Date Type Department Care Team (Latest Contact Info) Description 08/26/2021 6:53 AM CDT - 08/26/2021 9:25 AM CDT Hospital Encounter [facility] [address] [place] [address] Mario Oneal MD [address] [place] [address] [phone] Discharge Disposition: Home or Self Care (Routine [...] on file Legal Sex Male 2:58 PM PORTABLE PINCH RIVETER Gender Identity Male 07/13/2021 5:19 AM PORTABLE PINCH RIVETER Sexual Orientation Straight 07/13/2021 5: 19 AM PORTABLE PINCH RIVETER COVID-19 Exposure Response Date Recorded In the last 10 days, have srinivasan u been in contact with someone who was confirmed or suspected to have Coronavirus/COVID-19? No / Unsure 08/26/2021 6:53 AM CDT documented as of this encounter Last Filed Vital Signs Vital Sign Reading Time Taken Comments Blood Pressure 126/61 08/26/2021 9:00 AM CDT Pulse 114 08/26/2021 7:12 AM CDT Temperature 36.5 ??C (97.7 ??F) 08/26/2021 7:12 AM CD T Respiratory Rate 30 08/26/2021 9:00 AM CDT Oxygen Saturation 95% 08/26/2021 9:00 AM CDT Inhaled Oxygen Concentration - - Weight 117.9 kg (260 lb) 08/26/2021 7:12 AM CDT Height 180.3 cm (5' 11 ) 08/26/2021 7:12 AM CDT Body Mass Index 36.26 08/26/2021 7:12 AM CDT documented in this encounter Discharge Instructions * Attachments The following attachments cannot be sent through Care Everywhere. * Upper GI Endoscopy Discharge Instructions (Filipino) * Colonoscopy Discharge Instructions (Filipino) * Monitored Anesthesia Care (Filipino) documented in this encounter Medications at Time of Discharge CPAP DEVICE, DME,Indications:KARRIE (obstructive sleep apnea) Use daily when sleeping or taking a nap. 1 Device 08/21/2021 amLODIPine 10 MG tabletIndications:Pr imary hypertension Take 1 tablet (10 mg total) by mouth daily. 90 tablet 1 06/15/2021 2 AZELASTINE 0.1 % nasal sprayIndications:All ergic rhinitis, unspecified seasonality, unspecified trigger USE 1 SPRAY IN EACH NOSTRIL TWICE DAILY DIRECTED 90 mL 1 07/13/2021 3 cetirizine 5 MG chewable tabletIndications:En vironmental allergies,Allergic rhinitis, unspecified seasonality, unspecified trigger Chew 5 mg by mouth daily. 3 lisinopril 40 MG tabletIndications:Pr imary hypertension Take 1 tablet (40 mg total) by mouth daily. 90 tablet 1 08/21/2021 2 montelukast (SINGULAIR) 10 MG tabletIndications:En vironmental allergies,Allergic rhinitis, unspecified seasonality, unspecified trigger Take 1 tablet (10 mg total) by mouth nightly at bedtime. 30 tablet 3 06/15/2021 2 omeprazole 40 MG capsuleIndications:G astroesophageal reflux disease without esophagitis Take 1 capsule (40 mg total) by mouth daily. 30 capsule 2 08/21/2021 2 pravastatin 40 MG tabletIndications:Mi xed hyperlipidemia Take 1 tablet (40 mg total) by mouth nightly at bedtime. 90 tablet 1 08/21/2021 2 pravastatin 40 MG tablet Take 1 tablet by mouth nightly at bedtime. 04/29/2021 2 SITagliptin (JANUVIA) 25 mg TabIndications:Type 2 diabetes mellitus with hyperglycemia, without long-term current use of insulin ([facility]/HCC HHS/HCC) Take 1 tablet (25 mg total) by mouth daily. 30 tablet 5 08/21/2021 2 SUCRALFATE 1 G tabletIndications:Ga stroesophageal reflux disease without esophagitis TAKE 1 TABLET(1 GRAM) BY MOUTH THREE TIMES DAILY BEFORE MEALS 120 tablet 07/22/2021 2 triamcinolone acetonide 55 MCG/ACT nasal inhalerIndications:E nvironmental allergies,Allergic rhinitis, unspecified seasonality, unspecified trigger 03/09 3 documented as of this encounter Progress Notes * Mario Oneal MD - 08/26/2021 9:25 AM CDT Your colon polyp is benign. Repeat colon in 10 years * Rachel Nichole RN - 08/26/2021 9:24 AM CDT Up in room without dizziness. No nausea, Abd soft and non distended. Verbalized understanding to discharge instructions. documented in this encounter H&P Notes * Mario Oneal MD - 08/26/2021 7:30 AM CDT HISTORY AND PHYSICAL INTERVAL NOTE: I have reviewed Sheri Cannon History & Physical which was performed within the past 30 days. After examining Sheri Cannon, no change has occurred in the patient's condition since the H&P was completed. Informed Consent Discussion: Potential benefits, risks, and side effects of the patient's procedure/surgery; the likelihood of the patient achieving his or her goals; and any potential problems that might occur during recuperation were discussed with the patient/family/personal business banking representative. Reasonable alternatives to the patient's proposed procedure/surgery including benefits, risks, and side effects related to the alternatives and the risks related to not receiving the proposed care were also discussed with the patient/family/personal business banking representative. Questions were answered and the patient/family/personal business banking representative verbalized understanding and desires to proceed. Source Note - Mario Oneal MD - 07/31/2021 2:00 PM CDT Images from the original note were not included. Gastroenterology Initial Visit Reason for Visit: New Patient (GERD) History of Present Illness: 26-year-old male complains of 2 years of abdominal discomfort early satiety nausea, epigastric burning. And vomiting. Patient was started on omeprazole and sucralfate and it helps some of the symptoms but the burning persists. It is getting worse. Patient is diabetic. He also reports change in bowel habits with alternating diarrhea and constipation. 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 He states he has a gallbladder polyp diagnosed on gallbladder ultrasound 6 months ago. He also had a normal HIDA scan. ROS: General: No fever, chills, malaise, fatigue, weight loss or gain HEENT: No acute changes in vision or hearing Respiratory: No shortness of breath, cough, sputum production, hemoptysis Cardiovascular: No chest pain, palpitations, orthopnea Gastrointestinal: As per HPI Musculoskeletal: No dysuria, hematuria, incontinence Neuro: No extremity edema, myalgia Hematology: No easy bruising, bleeding Skin: No new skin rashes or lesions Medications: Current Outpatient Medications: ??? amLODIPine 10 MG tablet, Take 1 tablet (10 mg total) by mouth daily., Disp: 90 tablet, Rfl: 1 ??? AZELASTINE 0.1 % nasal spray, USE 1 SPRAY IN EACH NOSTRIL TWICE DAILY DIRECTED, Disp: 90 mL,Rfl: 1 ??? cetirizine 5 MG chewable tablet, Chew 5 mg by mouth daily., Disp: , Rfl: ??? glipiZIDE 5 MG tablet, Take 0.5 tablets (2.5 mg total) by mouth every morning before breakfast., Disp: 60 tablet, Rfl: 1 ??? lisinopril 20 MG tablet, Take 1 tablet (20 mg total) by mouth daily., Disp: 90 tablet, Rfl: 1 ??? montelukast (SINGULAIR) 10 MG tablet, Take 1 tablet (10 mg total) by mouth nightly at bedtime.,Disp: 30 tablet, Rfl: 3 ??? omeprazole 40 MG capsule, Take 1 capsule (40 mg total) by mouth daily., Disp: 30 capsule, Rfl: 2 ??? pravastatin 40 MG tablet, Take 1 tablet (40 mg total) by mouth nightly at bedtime., Disp: 90 tablet, Rfl: 1 ??? SUCRALFATE 1 G tablet, TAKE 1 TABLET(1 GRAM) BY MOUTH THREE TIMES DAILY BEFORE MEALS, Disp: 120tablet, Rfl: 0 ??? triamcinolone acetonide (NASACORT ALLERGY 24HR) 55 MCG/ACT nasal inhaler, , Disp: , Rfl: Allergies: No Known Allergies Medical History: Past Medical History: Diagnosis Date ??? Allergy ??? Arthrogryposis ??? Gastroschisis ??? Hyperlipidemia ??? Hypertension Surgical History: Past Surgical History: Procedure Laterality Date ??? 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 NONE ??? SEPTOPLASTY Social History: Family History: Family History Problem Relation Name Age of Onset ??? No Known Problems Mother ??? No Known Problems Father ??? Heart Disease Maternal Grandfather ??? Heart Disease Paternal Grandfather ??? Thyroid Disease Paternal Grandfather PE: Filed Vitals: 07/31/21 1407 BP: 130/82 Pulse: 97 Temp: 97.3 ??F (36.3 ??C) TempSrc: Temporal SpO2: 98% Weight: 116.9 kg (257 lb 12.8 oz) Height: 5' 11 (1.803 m) General: In NAD, pleasant and appropriate HEENT: Anicteric Cardiovascular: RRR, no m Pulmonary: CTA BL, no added sounds Abdomen: Soft, ND/NT, normoactive BS Skin: Anicteric, no rashes Neuro: A&Ox3 Labs: Diagnoses/Impression: Early satiety, nausea vomiting and epigastric burning of unclear etiology. History of gastroschisissurgery as a . Patient is diabetic so he may have gastroparesis. Gallbladder polyp was 6 mm 1 year ago will need to be careful observation. Recommendations and Plan: ?? EGD and colonoscopy. ?? Ultrasound of the gallbladder ?? All questions answered ?? More recommendations to follow endoscopic evaluation Risks/Benefits/Options: Patient presented with risks (can include but are not limited to: discomfort, missing lesions, allergic or adverse reaction to the sedation, perforation of the bowel which may require hospitaliztion and surgery, bleeding, infection, aspiration), benefits, and alternatives to the procedure(s) and they are in agreement to proceed as planned. MARIO ONEAL MD 07/31/2021 Voice recognition software utilized documented in this encounter OR Notes * Op Note - Mario Oneal MD - 08/26/2021 8:35 AM CDT [facility] OpNote EGD, COLONOSCOPY WITH POLYPECTOMY Procedure Note Sheri Hinds Aud 08/26/2021 0730 Procedure(s) (LRB): EGD (N/A) COLONOSCOPY WITH POLYPECTOMY (N/A) Surgeon(s): Mario Oneal MD Staff: Circulating Nurse 1: Rimma Wilkerson RN Scrub Person 1: Cindy Alvarado RN Anesthesia: Monitor Anesthesia Care PRODUCTION ENGINE REPAIRER: Nishi Romero CRNA Pre-Op Diagnosis: Early satiety, nausea vomiting and epigastric burning of unclear etiology. Post-Op Diagnosis: Negative EGD. Sigmoid colon polyp removed. Procedure Description: Informed consent was obtained earlier. Patient was brought to the OR and placed in supine lateral decubitus position and sedated under MAC anesthesia. EGD. GIF 190 gastroscope was lubricated inserted into the hypopharynx and advanced directly. Upper middle and distal esophagus looked normal. GE junction was normal at 40 cm. Stomach distended well. Retroflexed views of the cardia fundus angularis revealed no abnormalities. Antrum looked normal. First and second parts of the duodenum looked normal so scope withdrawn. Colonoscopy with cold snare. PCF 190 colonoscope was lubricated inserted into the rectum and advanced to the cecum. Bowel prep was excellent. Cecum was identified by the ileocecal valve and the appendiceal orifice. Cecum ascending colon transverse colon descending colon looked normal. In the sigmoid colon there was a 6 mm polyp that was cold snared and removed completely. The rectum was normal. Retroflexion revealed mild hemorrhoids and scope withdrawn. Findings: Negative EGD. Colonoscopy with small sigmoid polyp removed by cold snare. Otherwise negative exam to cecum with excellent bowel prep. Plan: Check pathology. Repeat colonoscopy recommended in 5 years pending path. Patient should have his gallbladder removed given growth of polyps in the gallbladder. Will refer him to general surgery. Complications: none Estimated Blood Loss: * No values recorded between 08/26/2021 8:09 AM and 08/26/2021 8:35 AM * Specimens: Order Name Source Comment Collection Info Order Time PATHOLOGY COLON N/V; epigastric pain Collected By: Mario Oneal MD 08/26/2021 8:34 AM Release to patient System release Voice recognition software utilized. MARIO ONEAL MD Date: 08/26/2021 Time: 8:35 AM Voice recognition software utilized. documented in this encounter Plan of Treatment Upcoming Encounters Date Type Department Care Team (Late st Contact Info) Description 05/15/2024 3:30 PM PORTABLE PINCH RIVETER Appointment [facility] [place] [address] Pankaj Rosenberg MD [address] [facility] [address] [place] [address] 05/25/2024 12:45 PM PORTABLE PINCH RIVETER Office Visit [facility] Physical Therapy [address] [facility] [address] [place] [address] Pankaj Rosenberg MD [address] [facility] [address] [place] [address] Maya Magaña, [place] [address] 05/30/2024 3:40 PM PORTABLE PINCH RIVETER [facility] - [address] [place] [address] Pankaj Rosenberg MD [address] [address] 06/20/2024 3:40 PM PORTABLE PINCH RIVETER Telemedicine [facility] [place] [address] [address] [place] [address] Pankaj Rosenberg MD [address] [address] 06/21/2024 1:00 PM PORTABLE PINCH RIVETER Office Visit [facility] - [place] [address] [place] [address] Jose Ratliff MD [address] [address] [place] [address] 03/27/2025 1:00 PM PORTABLE PINCH RIVETER [facility] [address] [facility] [address] [place] [address] Mario Oneal MD [address] [facility] [address] [place] [address] documented as of this encounter Procedures Procedure Name Priority Date/Time Associated Diagnosis Comments COLONOSCOPY FLX DX W/COLLJ SPEC WHEN PFRMD 08/26/2021 8:09 AM CDT Nausea and vomiting, unspecified vomiting type Change in bowel function Epigastric burning sensation Special Needs pt is diabetic 0700 UPPER GI ENDOSCOPY,DIAGNOSIS 08/26/2021 8:09 AM CDT Nausea and vomiting, unspecified vomiting type Change in bowel function Epigastric burning sensation Special Needs pt is diabetic 0700 POCT GLUCOSE - FERRO DOCKED DEVICE Routine 08/26/2021 7:22 AM CDT PATHOLOGY Routine 08/26/2021 12:00 AM CDT documented in this encounter Results * POCT glucose (08/26/2021 7:22 AM CDT) GLUCOSE POC 105 70 - 110 mg/dL 08/26/2021 7:28 AM CDT [facility] 08/26/2021 7:22 AM CDT Mario Oneal MD POCT ORDERABLES - DEVICE Final R esult Performing Organization Address City/State/[facility] Co de Phone Number [facility] [address] [place] [address], * Pathology (08/26/2021 12:00 AM CDT) PATHOLOGY [facility] ? Department of Laboratory Medicine ?[address] [facility] ?[place] [address] ? , extension [phone] ? Pathology Report ? Surgical Pathology Report Name: SHERI CANNON ? Specimen #: [id number] Age: 12 1995 (Age: 26) ? Location: [facility] Sex: M ?Procedure Date: 08/26/2021 [facility] #: [id number] ?Date Received: 08/27/2021 Date Reported: 08/28/2021 Provider: MARIO ONEAL MD Source: Colon, sigmoid, polyp Clinical History: Early satiety, nausea, vomiting, and epigastric burning of unclear etiology. Gross Description: Received in formalin, labeled with a patient label and as sigmoid colon polyp is a 0.3 cm sutherland polyp. ??A base is not identified. ??The specimen is entirely submitted in cassette 1. Gross examination (when applicable), interpretation and sign-out were performed at [facility], [address] [place] [address], [id number]. FINAL DIAGNOSIS: COLON, SIGMOID, POLYP, BIOPSY: ? - HYPERPLASTIC POLYP. ? Electronically Signed Out ? C. Boris Lim M.D. [facility] Tissue specimen (specimen) COLON STRUCTURE / Unknown 08/26/2021 8:24 AM CDT Comment:N/V; epigastric pain Mario Oneal MD PATHOLOGY/CYTOLOGY ORDERABLES Fi nal Result [facility] [address] [place] [address], [id number] documented in this encounter Visit Diagnoses Diagnosis Nausea and vomiting, unspecified vomiting type Change in bowel function Other symptoms involving digestive system Epigastric burning sensation Abdominal pain, epigastric documented in this encounter Admitting Diagnoses Diagnosis Nausea and vomiting, unspecified vomiting type Change in bowel function Other symptoms involving digestive system Epigastric burning sensation Abdominal pain, epigastric documented in this encounter Administered Medications Inactive Administered Medications - up to 3 most recent administrations Medication Order MAR Action Action Date Dose Rate Site sodium chloride 0.9% infusion at 10 mL/hr, [...] are shown in CDT. Continuous Medication Order 08/24/2021 08/25/2021 08/26/2021 sodium chloride 0.9% infusion at 10 mL/hr, Intravenous, Continuous, Starting on Tue08/26/21 at 0730, Until Tue08/26/21 at 1125, Infuse at TKO rate. Use mini-drip tubing for ESRD patients., Pre-Op 0726 (New Bag - Prov ider: Kristen Flynn RN)0809 (Continued by Anesthesia - Provider: Nishi Romero CRNA)0833 (Paused - Provider: Nishi Romero CRNA - Comment: Switch to gravity)0834 (Restarted - Provider: Nishi Romero CRNA)0905 (Infusion Stop Time - Provider: Rachel Nichole RN) documented in this encounter Additional Health Concerns Assessment Noted Time PHQ-9 Depression Total Score: 0 08/01/19 22 2:12 PM CDT documented as of this encounter Care Teams Residential Leasing Agent Relationship Specialty Start Date End Date Pankaj Rosenberg MD [address] [facility] [address] [place] [address] PCP - General INTERNAL MEDICINE 06/15/21 documented as of this encounter
--- OUTSIDE RECORDS SUMMARY | 2024-05-13 10:52 | XMS_ITS | Encounter Summary ---
Author Organization [facility] Address [address] [place] [address]. [place], [place] [address] [place] [address] Care Team Providers Care Warehouse Manager Name Role Phone Pankaj Rosenberg MD Primary Care Provider [phone] Encounter Details Date Type Department Care Team (Latest Contact Info) Description 08/26/2021 Travel Social History Tobacco Use Types Packs/Day [...] on file Legal Sex Male 2:58 PM PUBLIC POLICY MANAGER Gender Identity Male 07/13/2021 5:19 AM PUBLIC POLICY MANAGER Sexual Orientation Straight 07/13/2021 5: 19 AM PUBLIC POLICY MANAGER COVID-19 Exposure Response Date Recorded In the last 10 days, have yo u been in contact with someone who was confirmed or suspected to have Coronavirus/COVID-19? No / Unsure 08/26/2021 6:53 AM CDT documented as of this encounter Plan of Treatment Upcoming Encounters Date Type Department Care Team (Late st Contact Info) Description 05/15/2024 3:30 PM PUBLIC POLICY MANAGER Appointment [facility] [place], [place] [id number] Pankaj Rosenberg MD [address] [address] 05/25/2024 12:45 PM PUBLIC POLICY MANAGER Office Visit [facility] Physical Therapy [facility] [facility] [address] [place] [address] Pankaj Rosenberg MD [address] [facility] [address] [place] [address] Maya Magaña, [place] [address] 05/30/2024 3:40 PM PUBLIC POLICY MANAGER Office Visit [facility] Medical [facility]pecialty [facility] [place] [address] [facility] [address] [place] [address] aPnkaj Rosenberg MD [address] [address] 06/20/2024 3:40 PM PUBLIC POLICY MANAGER Telemedicine [facility] - [address] [place] [address] Pankaj Rosenberg MD [address] [address] 06/21/2024 1:00 PM PUBLIC POLICY MANAGER Office Visit [facility] Medical Group [facility]opedic [facility] - [place] [address] [place] [address] Jose Ratliff MD [address] [address] [place] [address] 03/27/2025 1:00 PM PUBLIC POLICY MANAGER Office Visit [facility] Medical [facility] Multispecialty Care - [facility] 3 [facility], [address] [place] [id number] Bob Oneal MD [address] [place] [address] documented as of this encounter Visit Diagnoses Not on filedocumented in this encounter Additional Health Concerns Assessment Noted Time PHQ-9 Depression Total Score: 0 08/01/19 22 2:12 PM CDT documented as of this encounter Care Teams Warehouse Manager Relationship Specialty Start Date End Date Pankaj Rosenberg MD [address] [address] PCP - General INTERNAL MEDICINE 06/15/21 documented as of this encounter
--- OUTSIDE RECORDS SUMMARY | 2024-05-13 10:52 | XMS_ITS | Encounter Summary ---
Author Organization [facility] Address [address] [place] [address]. [place] [address] [place] [address] Care Team Providers Care Report Manager Name Role Phone Pankaj Rosenberg MD Primary Care Provider [phone] Reason for Referral * Surgical (Routine) - Closed Specialty Diagnoses / Procedures Referred By Contac t Referred To Contact SURGERY Diagnoses Gallbladder polyp Bob Oneal MD [address] [facility] [address] [place] [address] Phone: tel: fax: Bernardo Pedraza MD Phone: tel: fax: Referral ID Status Reason Start Date Expiration Date Visits Re quested Visits Authorized [id number] Closed 08/26/2021 09/26/2022 99 99 Encounter Details Date Type Department Care Team (Late st Contact Info) Description 08/26/2021 Orders Only [facility] Multispecialty Care - [facility] [address] [place] [address] Bob Oneal MD 3 [facility] [address] [place] [address] Social History Tobacco Use Types Packs/Day Years [...] on file Legal Sex Male 2:58 PM DEPARTMENTAL SECRETARY Gender Identity Male 07/13/2021 5:19 AM DEPARTMENTAL SECRETARY Sexual Orientation Straight 07/13/2021 5: 19 AM DEPARTMENTAL SECRETARY COVID-19 Exposure Response Date Recorded In the last 10 days, have yo u been in contact with someone who was confirmed or suspected to have Coronavirus/COVID-19? No / Unsure 08/26/2021 6:53 AM CDT documented as of this encounter Plan of Treatment Upcoming Encounters Date Type Department Care Team (Late st Contact Info) Description 05/15/2024 3:30 PM DEPARTMENTAL SECRETARY Appointment [facility] [place] [address] Pankaj Rosenberg MD [address] [place] [phone] 05/25/2024 12:45 PM DEPARTMENTAL SECRETARY Office Visit [facility] Physical Therapy [address] [place] [phone] Pankaj Rosenberg MD [address] [place] [phone] Maya Magaña, [place] [address] 05/30/2024 3:40 PM DEPARTMENTAL SECRETARY Office Visit [facility] Multispecialty Care - [place] [address] [address] [place] [address] Pankaj Rosenberg MD [address] [place], [place] [address] [address] 06/20/2024 3:40 PM DEPARTMENTAL SECRETARY Telemedicine [facility] Multispecialty [facility] [place] - [place] [address] [place] [address] [address] [place] [address] Pankaj Rosenberg MD [address] [address] 06/21/2024 1:00 PM DEPARTMENTAL SECRETARY Office Visit [facility] Orthopedic & Sports Medicine - [place] [address] [place] [address] Jose Ratliff MD [address] [facility] [address] [place] [address] 03/27/2025 1:00 PM DEPARTMENTAL SECRETARY Office Visit [facility] Multispecialty [facility] [place] - [facility] [address] [place] [address] Bob Oneal MD 3 [facility] [address] [place] [address] Scheduled Referrals Name Type Priority Associated Diagnoses Orde r Schedule Ambulatory referral to General Surgery (OTHER) Referral Routine Gallbladder polyp Ordered: 08/26/2021 documented as of this encounter Visit Diagnoses Diagnosis Gallbladder polyp- Primary Cholesterolosis of gallbladder documented in this encounter Additional Health Concerns Assessment Noted Time PHQ-9 Depression Total Score: 0 08/01/19 2:12 PM CDT documented as of this encounter Care Teams Report Manager Relationship Specialty [place] [address] [place] [phone] PCP - General INTERNAL MEDICINE 06/15/21 documented as of this encounter
--- OUTSIDE RECORDS SUMMARY | 2024-05-13 10:52 | XMS_ITS | Encounter Summary ---
Author Organization [facility] Address [address] [place] [address]. [place], [place] [id number] [place] [id number] Care Team Providers Care Master Automotive Technician Name Role Phone Pankaj Rosenberg MD Primary Care Provider [phone] Reason for Visit * Reason Comments TCM patient is here for TCM Encounter Details Date Type Department Care Team (Latest Contact Info) Description 09/28/2021 1:50 PM CDT Office Visit [facility] Multispecialty Care - [address] [address] [address] [place] [address] Pankaj Rosenberg MD [address] [place] [address] [address] [place], [place] [id number] TCM (patient is here for TCM) Social History Tobacco Use Types Packs/Day Years [...] on file Legal Sex Male 2:58 PM RESPOOLER Gender Identity Male 07/13/2021 5:19 AM RESPOOLER Sexual Orientation Straight 07/13/2021 5: 19 AM RESPOOLER COVID-19 Exposure Response Date Recorded In the last 10 days, have yo u been in contact with someone who was confirmed or suspected to have Coronavirus/COVID-19? No / Unsure 09/28/2021 1:40 PM CDT documented as of this encounter Last Filed Vital Signs Vital Sign Reading Time Taken Comments Blood Pressure 126/87 09/28/2021 2:17 PM CDT Pulse 101 09/28/2021 2:17 PM CDT Temperature 36.5 ??C (97.7 ??F) 09/28/2021 1:54 PM CD T Respiratory Rate 18 09/28/2021 1:54 PM CDT Oxygen Saturation 97% 09/28/2021 1:54 PM CDT Inhaled Oxygen Concentration - - Weight 109.1 kg (240 lb 9.6 oz) 09/28/2021 1:54 PM CDT Height 180.3 cm (5' 11 ) 09/28/2021 1:54 PM CDT Body Mass Index 33.56 09/28/2021 1:54 PM CDT documented in this encounter Patient Instructions * Patient Instructions* Pankaj Rosenberg MD - 09/28/2021 1:50 PM CDT Images from the original note were not included. Please follow up with surgery as planned for your next appointment. Please get your diabetic eye exam done. Maintain hydration as much as possible. Patient Education Patient Education Small Bowel Obstruction Discharge Instructions About this topic A small bowel obstruction is when the small bowel is blocked. Doctors may order tests to diagnose ablocked small bowel. The small bowel may be partly blocked or totally blocked. This obstruction maycause a buildup of stool and other digested contents inside the bowel. It may cause serious problems if not treated right away. What care is needed at home? ?? Ask your doctor what you need to do when you go home. Make sure you ask questions if you do not understand what the doctor says. This way you will know what you need to do. ?? You may have a tube in your nose in the hospital to remove digestive fluids. If you still have atube in your nose when you go home, your doctor will tell you how to clean and care for it. ?? Take your drugs as ordered by your doctor. If you had surgery, ask your doctor about how to care for your cut site: ?? When you should change your bandages ?? When you may take a bath or shower ?? If you need to be careful with lifting things over 10 pounds (4.5 kg) ?? When you may go back to your normal activities like work and driving What follow-up care is needed? ?? Your doctor may ask you to make visits to the office to check on your progress. Be sure to keep these visits. ?? If you have stitches or goyo, you will need to have them taken out. Your doctor will often want to do this in 1 to 2 weeks. If the doctor used skin glue, the glue will fall off on its own. ?? Your doctor may order extra tests to see how well you are doing. ?? If this condition was caused by cancer, your doctor may tell you to have other treatments for the cancer. What drugs may be needed? The doctor may order drugs to: ?? Help with pain ?? Fight an infection ?? Keep your stool soft Will physical activity be limited? Physical activities may be limited if you are suffering from pain. Talk to your doctor about the right amount of activity for you. If your doctor says it is okay, take short walks every day to help prevent blood clots. What changes to diet are needed? Ask your doctor or dietitian for a diet plan. Your doctor may suggest a liquid or soft diet until your bowel is stable and ready for regular food. Drink lots of clear liquids. Clear liquids include water, fruit juices, soup broth, gelatin, popsicles that do not have fruit or fruit pulp, tea or coffee with no added milk, and sports drinks. Avoid beer, wine, and mixed drinks (alcohol) and limit caffeine. What problems could happen? ?? Hard stools ?? Dehydration ?? Infection ?? Tear or hole in the small bowel ?? Tissue ?? Bowel function does not return to normal When do I need to call the doctor? ?? Signs of infection. These include a fever of 100.4??F (38??C) or higher, chills, pain with passing urine or not able to pass urine, wound that will not heal. ?? Signs of wound infection. These include swelling, redness, warmth around the wound; too much pain when touched; yellowish, greenish, or bloody discharge; foul smell coming from the cut site; cut site opens up. ?? Unable to pass stool or gas ?? Very upset stomach or throwing up ?? Very bad belly pain Teach Back: Helping You Understand The Teach Back Method helps you understand the information we are giving you. After you talk with the staff, tell them in your own words what you learned. This helps to make sure the staff has described each thing clearly. It also helps to explain things that may have been confusing. Before going home, make sure you can do these: ?? I can tell you about my condition. ?? I can tell you how to care for my cut site, if I have one. ?? I can tell you what I will do if I have an upset stomach, throwing up, or am not able to pass stool or gas. Where can I learn more? [employer] [place] http://www.cancer.gov/cancertopics/pdq/supportivecare/gastrointestinalcomplicati ons/Patient/page4 Last Reviewed Date 2020-10-01 Consumer Information Use and Disclaimer This generalized [...] or approved for treating a specific patient. [employer]. and its affiliates disclaim any warranty or liability relating to this information or the use thereof. The use of this information is governed by the Terms of Use, available at https://www.ilustrum.com/en/know/hlavvrzc-wvcsbdcympsva-qrvlw Copyright Copyright ?? 2021 [employer]. and its affiliates and/or licensors. All rights reserved. documented in this encounter Progress Notes * Pankaj Rosenberg MD - 09/28/2021 1:50 PM CDTSummary: TCM notes TRANSITIONAL CARE MANAGEMENT NOTES Reason for Visit: TCM (patient is here for TCM) History of Present Illness: Transitional Care Note: Pt was admitted on: 09/11/2021 Pt was discharged on: 09/22/2021 Admit Diagnosis: partial small bowel obstruction Discharge Diagnosis: small bowel obstruction Initial Nursing contact: See telephone encounter on: 09/23/2021 Discharge note from 09/22/2021 was reviewed Medication at time of discharge reviewed. Current list of medications reviewed as well. In summary: 26-year-old male with history of gastroparesis status post surgery as an infant, hypertension, hyperlipidemia, type 2 diabetes mellitus with GERD and 2 prior histories of small bowel obstructions status post small bowel resection prior to age 4 status post recent admission forpartial small bowel obstruction and status post exploratory laparotomy with small bowel resection and enterolysis comes in today for hospital follow-up. Since Discharge: Chuck has been doing well and trying very hard to maintain hydration. He tells me he is no longer requiring his pain medications. He has an upcoming appointment with surgery in a week's time. HPI: Chuck is a 26-year-old male with history of gastroparesis status post surgery as an , hypertension, hyperlipidemia, type 2 diabetes mellitus, GERD and 2 prior history of small bowel obstruction status post small bowel resection prior to age 4 recently admitted to the hospital for severe cramping abdominal pain associated with nausea and vomiting. He initially was at 2 different hospitals prior to transferring to [facility] for management. He initially was managed nonoperatively with NG tube connected to low intermittent suction with slight improvement howeverpatient became very nauseous upon trial of clamping of NG tube with failure to return to normal peace l function. Had small bowel follow-through without passage of contrast into bowel. Subsequently managed operatively for small bowel obstruction. Underwent exploratory laparotomy, small bowel resection and enterolysis 09/17/2021 with intraoperative findings notable for transition point at mid ileal stricture with adherence to umbilicus. No intraoperative complications noted. Pain was managed with Dilaudid PIT STEWARD pump which was discontinued on postop day 3. Diet was successfully advanced. He was evaluated by physical therapy and Occupational Therapy prior to discharge in a stable condition. Of note,CT abdomen pelvis with contrast done on 09/15/2021 did show partial small bowel obstruction specifically small bowel loops dilated up to 3.7 cm with narrow caliber transition point at midline anteriorly. The cecum was located to the left of midline which could be due to malrotation and or postsurgical changes. Currently patient on amlodipine 10 mg daily. Has not initiated lisinopril or Januvia. Tells me he had a burger for lunch today. Gradually advancing fluids. Denies any fever or chills. His la st bowel movement was yesterday. Denies any abdominal distention or bloatedness. No discharge from wound site. ROS: Review of Systems Constitutional: Negative for chills, diaphoresis, fever, malaise/fatigue and weight loss. HENT: Negative. Eyes: Negative. Respiratory: Negative. Cardiovascular: Negative for chest pain, palpitations, orthopnea, claudication, leg swelling and PND. Gastrointestinal: Negative. Genitourinary: Negative. Musculoskeletal: Negative. Medications: Current Outpatient Medications: ??? Alcohol Swabs (ALCOHOL WIPES) 70 % Pads, USE 1 SWAB TO CLEAN SKIN TWICE DAILY BEFORE TESTING, Disp: , Rfl: ??? AMLODIPINE 10 MG tablet, TAKE 1 TABLET(10 MG) BY MOUTH DAILY, Disp: 90 tablet, Rfl: 1 ??? AZELASTINE 0.1 % nasal spray, USE 1 SPRAY IN EACH NOSTRIL TWICE DAILY DIRECTED, Disp: 90 mL,Rfl: 1 ??? Blood Glucose Monitoring Suppl ([employer] VERIO REFLECT) w/Device Kit, 1 Units by Does not applyroute 2 (two) times daily., Disp: , Rfl: ??? cetirizine 5 MG chewable tablet, Chew 5 mg by mouth daily., Disp: , Rfl: ??? CPAP DEVICE, DME,, Use daily when sleeping or taking a nap., Disp: 1 Device, Rfl: 0 ??? Lancets (TigerTextTOUCH DELICA PLUS [id number]) [facility], USE 1 LANCET TO PRICK FINGER TWICE DAILY BEFORE TESTING, Disp: , Rfl: ??? lidocaine 5 %, Place 1 patch onto the skin daily., Disp: , Rfl: ??? lisinopril 10 MG tablet, Take 1 tablet (10 mg total) by mouth daily., Disp: 30 tablet, Rfl: 2 ??? loratadine 10 MG tablet, Take 10 mg by mouth daily as needed., Disp: , Rfl: ??? MONTELUKAST 10 MG tablet, TAKE 1 TABLET(10 MG) BY MOUTH EVERY NIGHT AT BEDTIME, Disp: 30 tablet, Rfl: 3 ??? omeprazole 40 MG capsule, Take 1 capsule (40 mg total) by mouth daily., Disp: 30 capsule, Rfl: 2 ??? polyethylene glycol 17 GM/SCOOP powder, Take 17 g by mouth daily., Disp: , Rfl: ??? pravastatin 40 MG tablet, Take 1 tablet (40 mg total) by mouth nightly at bedtime., Disp: 90 tablet, Rfl: 1 ??? SITagliptin (JANUVIA) 25 mg Tab, Take 1 tablet (25 mg total) by mouth daily., Disp: 30 tablet, Rfl: 5 ??? SUCRALFATE 1 G tablet, TAKE 1 TABLET(1 GRAM) BY MOUTH THREE TIMES DAILY BEFORE MEALS, Disp: 120tablet, Rfl: 0 ??? triamcinolone acetonide (NASACORT ALLERGY 24HR) 55 MCG/ACT nasal inhaler, , Disp: , Rfl: ??? TRUEplus Lancets 33G [facility], , Disp: , Rfl: Current Outpatient Medications on File Prior to Visit Medication Sig ??? Alcohol Swabs (ALCOHOL WIPES) 70 % Pads USE 1 SWAB TO CLEAN SKIN TWICE DAILY BEFORE TESTING ??? AMLODIPINE 10 MG tablet TAKE 1 TABLET(10 MG) BY MOUTH DAILY ??? AZELASTINE 0.1 % nasal spray USE 1 SPRAY IN EACH NOSTRIL TWICE DAILY DIRECTED ??? Blood Glucose Monitoring Suppl (ONETOUCH VERIO REFLECT) w/Device Kit 1 Units by Does not apply route 2 (two) times daily. ??? cetirizine 5 MG chewable tablet Chew 5 mg by mouth daily. ??? CPAP DEVICE, DME, Use daily when sleeping or taking a nap. ??? Lancets (ONETOUCH DELICA PLUS [id number]) [facility] USE 1 LANCET TO PRICK FINGER TWICE DAILY BEFORE TESTING ??? lidocaine 5 % Place 1 patch onto the skin daily. ??? loratadine 10 MG tablet Take 10 mg by mouth daily as needed. ??? MONTELUKAST 10 MG tablet TAKE 1 TABLET(10 MG) BY MOUTH EVERY NIGHT AT BEDTIME ??? polyethylene glycol 17 GM/SCOOP powder Take 17 g by mouth daily. ??? pravastatin 40 MG tablet Take 1 tablet (40 mg total) by mouth nightly at bedtime. ??? SUCRALFATE 1 G tablet TAKE 1 TABLET(1 GRAM) BY MOUTH THREE TIMES DAILY BEFORE MEALS ??? triamcinolone acetonide (NASACORT ALLERGY 24HR) 55 MCG/ACT nasal inhaler ??? TRUEplus Lancets 33G [facility] No current facility-administered medications on file prior to visit. No Known Allergies Patient Active Problem List Diagnosis ??? Mixed [...] POLYPECTOMY performed by Bob Oneal MD at [facility] OR ??? NONE ??? SEPTOPLASTY ??? SMALL INTESTINE SURGERY Social History Socioeconomic History ??? Marital status: Single Spouse name: Not on file ??? Number of children: Not on file ??? Years of education: Not on file ??? Highest education level: Not on file Occupational History ??? Not on file Tobacco Use ??? Smoking status: Never Smoker ??? Smokeless tobacco: Former User Types: Snuff, Chew ??? Tobacco comment: counseled by Dr Rosenberg Vaping Use ??? Vaping Use: Never used Substance and Sexual Activity ??? Alcohol use: Yes Alcohol/week: 5.0 standard drinks Types: 3 Cans of beer per week ??? Drug use: Never ??? Sexual activity: Yes Other Topics Concern ??? Not on file Social History Narrative ??? Not on file Social Determinants of Health Financial Resource Strain: Not on file Food Insecurity: Not on file Transportation Needs: Not on file Physical Activity: Not on file Stress: Not on file Social Connections: Not on file Intimate Partner Violence: Not on file Family History Problem Relation Name Age of Onset ??? No Known Problems Mother ??? No Known Problems Father ??? Heart Disease Maternal Grandfather ??? Heart Disease Paternal Grandfather ??? Thyroid Disease Paternal Grandfather Family Status Relation Name Status ??? Mother Alive ??? Father ??? MGF (Not Specified) ??? PGF (Not Specified) Filed Vitals: 09/28/21 1354 09/28/21 1417 BP: (!) 147/95 126/87 Pulse: 115 101 Resp: 18 Temp: 97.7 ??F (36.5 ??C) TempSrc: Temporal SpO2: 97% Weight: 109.1 kg (240 lb 9.6 oz) Height: 5' 11 (1.803 m) Physical Exam Vitals and nursing note reviewed. Constitutional: General: He is not in acute distress. Appearance: He is normal weight. He is not ill-appearing, toxic-appearing or diaphoretic. HENT: Head: Normocephalic. Right Ear: Tympanic membrane, ear canal and external ear normal. Left Ear: Tympanic membrane, ear canal and external ear normal. Nose: Nose normal. No congestion. Mouth/Throat: Mouth: Mucous membranes are moist. Pharynx: No oropharyngeal exudate or posterior oropharyngeal erythema. Eyes: General: No scleral icterus. Conjunctiva/sclera: Conjunctivae normal. Pupils: Pupils are equal, round, and reactive to light. Neck: Vascular: No carotid bruit. Cardiovascular: Rate and Rhythm: Regular rhythm. Tachycardia present. Pulses: Normal pulses. Heart sounds: Normal heart sounds. No murmur heard. Pulmonary: Effort: Pulmonary effort is normal. No respiratory distress. Breath sounds: Normal breath sounds. No wheezing or rales. Abdominal: General: Abdomen is flat. Bowel sounds are normal. There is no distension. Palpations: Abdomen is soft. There is no mass. Tenderness: There is no abdominal tenderness. There is no right CVA tenderness, left CVA tenderness, guarding or rebound. Hernia: No hernia is present. Comments: Capulin in place and wound site dry and healing well. Musculoskeletal: Cervical back: Normal range of motion. No rigidity or tenderness. Lymphadenopathy: Cervical: No cervical adenopathy. Skin: General: Skin is warm. Coloration: Skin is not jaundiced or pale. Findings: No bruising, erythema, lesion or rash. Neurological: General: No focal deficit present. Mental Status: He is alert. Mental status is at baseline. Cranial Nerves: No cranial nerve deficit. Sensory: No sensory deficit. Assessment & Plan: Chuck was seen today for tcm. Diagnoses and all orders for this visit: Small bowel obstruction (CMS/HCC) - patient with history of gastroparesis status post surgery as an . Recently with concerns for partial small obstruction for which patient underwent exploratory laparotomy with small bowel resection and enterolysis. Doing well postop. Has advance diet. No longer on pain medications. Ambulating well. Having normal bowel movements. No concerns for fever or chills. For now, goyo appear in place. Incisional site clean without any bleeding or discharge. Patient will follow up with general surgery as planned for routine checkup. No need for antibiotics at this time. Hydration encouraged. - CBC W/DIFF AUTOMATED; Future - COMPREHENSIVE METABOLIC PANEL; Future - MAGNESIUM; Future - MAGNESIUM - COMPREHENSIVE METABOLIC PANEL - CBC W/DIFF AUTOMATED Hospital discharge follow-up - patient with history of gastroparesis status post surgery as an infant. Recently with concerns for partial small obstruction for which patient underwent exploratory laparotomy with small bowel resection and enterolysis. Doing well postop. Has advance diet. No longer on pain medications. Ambulating well. Having normal bowel movements. No concerns for fever or chills. For now, goyo appear in place. Incisional site clean without any bleeding or discharge. Patient will follow up with general surgery as planned for routine checkup. No need for antibiotics at this time. Hydration encouraged. Hospital discharge summary reviewed/ diagnosis reviewed with the patient: yes Medication reconciliation performed: yes Tests pending at time of discharge reviewed: Yes Any needed follow up testing or specialty consultation: yes Discussed how to reach us after office hours: yes Place exchange information in AVS yes Discussed healthcare directive/DPA for healthcare issues yes If > 80 or chronically ill Code Status discussed not applicable Follow up appointment in 4 weeks Essential hypertension, benign - blood pressures well controlled. Continue with amlodipine. Change from lisinopril 40 mg to 10 mg daily. - CBC W/DIFF AUTOMATED; Future - COMPREHENSIVE METABOLIC PANEL; Future - MAGNESIUM; Future - lisinopril 10 MG tablet; Take 1 tablet (10 mg total) by mouth daily. - MAGNESIUM - COMPREHENSIVE METABOLIC PANEL - CBC W/DIFF AUTOMATED - Follow-up in 4 to 6 weeks Type 2 diabetes mellitus with hyperglycemia, without long-term current use of insulin ([facility]) - patient currently has advanced his diet substantially. Start Januvia 25 mg daily - CBC W/DIFF AUTOMATED; Future - COMPREHENSIVE METABOLIC PANEL; Future - MAGNESIUM; Future - MAGNESIUM - COMPREHENSIVE METABOLIC PANEL - CBC W/DIFF AUTOMATED Gastroesophageal reflux disease without esophagitis - stable symptoms with no red flag signs - Continue omeprazole 40 MG capsule; Take 1 capsule (40 mg total) by mouth daily. I spent 40 minutes today reviewing the patient's medical record, obtaining history, performing an exam, ordering medications, tests, and/or procedures, documenting in the medical record, referring and/or communicating with other health care providers, counseling and educating the patient/family/caregiver, reviewing and communicating test results and coordination of care. 1. Medications/DME - See orders. 2. Lab/Diagnostics - See orders. 3. Education - Current treatment discussed and patient education given as appropriate. 4. Referrals - Scheduled to follow-up with general surgery. 5. RTC - 4 week(s) MD Pankaj QUEVEDO MD Internal Medicine [facility] documented in this encounter Plan of Treatment Upcoming Encounters Date Type Department Care Team (Late st Contact Info) Description 05/15/2024 3:30 PM RESPOOLER Appointment [facility] [place] [address] Pankaj Rosenberg MD [address] [address] 05/25/2024 12:45 PM RESPOOLER Office Visit [facility] [address] [place] [address] Pankaj Rosenberg MD [facility] [address] Maya Magaña, [place] [address] 05/30/2024 3:40 PM RESPOOLER Office Visit [facility] Medical [facility] Multispecialty Care - [address] [address] Pankaj Rosenberg MD [facility] [address] [address] 06/20/2024 3:40 PM RESPOOLER Telemedicine [facility] Multispecialty Care - [address] [address] [address] [place] [address] Pankaj Rosenberg MD [facility] [address] [address] 06/21/2024 1:00 PM RESPOOLER Office Visit [facility] Orthopedic & Sports [facility] - [place] [address] [place], [place] [address] Jose Ratliff MD [id number] [place] [address] 03/27/2025 1:00 PM RESPOOLER Office Visit [facility] Multispecialty Care - [facility] [address] [facility] [place] [address] Bob Oneal MD [address] [facility] [address] [place] [address] documented as of this encounter Procedures Procedure Name Priority Date/Time Associated Diagnosis Comments COMPREHENSIVE METABOLIC PANEL Routine 09/28/2021 2:25 PM CDT Essential hypertension, benign Type 2 diabetes mellitus with hyperglycemia, without long-term current use of insulin (CMS/HCC HHS/HCC) Small bowel obstruction (CMS/HCC HHS/HCC) CBC W/DIFF AUTOMATED Routine 09/28/2021 2:25 PM CDT Essential hypertension, benign Type 2 diabetes mellitus with hyperglycemia, without long-term current use of insulin (CMS/HCC HHS/HCC) Small bowel obstruction (CMS/HCC HHS/HCC) MAGNESIUM Routine 09/28/2021 2:25 PM CDT Essential hypertension, benign Type 2 diabetes mellitus with hyperglycemia, without long-term current use of insulin (CMS/HCC HHS/HCC) Small bowel obstruction (CMS/HCC HHS/HCC) documented in this encounter Results * MAGNESIUM (09/28/2021 2:25 PM CDT) MAGNESIUM 2.0 1.8 - 2.4 MG/DL 09/28/2021 9:35 PM CDT [facility] 09/28/2021 2:25 PM CDT us Pankaj Rosenberg MD LABORATORY Final Result [facility] [address] [place] [address], * (ABNORMAL) COMPREHENSIVE METABOLIC PANEL (09/28/2021 2:25 PM CDT) [facility] SODIUM S/P/B 140 136 - 145 MMOL/L 09/28/2021 9:35 PM CDT [facility] POTASSIUM S/P/B 4.3 3.5 - 5.1 MMOL/L 09/28/2021 9:35 PM CDT [facility] CHLORIDE S/P/B 103 98 - 107 MMOL/L 09/28/2021 9:35 PM CDT [facility] CO2 24.9 21 - 32 MMOL/L 09/28/2021 9:35 PM T [facility] GLUCOSE 169(H) 70 - 99 MG/DL 09/28/2021 9:35 PM CDT [facility] BUN 11 7 - 18 MG/DL 09/28/2021 9:35 PM CDT [facility] CREATININE S/P/B 0.87 0.70 - 1.30 MG/DL 09/28/2021 9:35 PM T [facility] CALCIUM S/P/B 10.0 8.4 - 10.5 MG/DL 09/28/2021 9:35 PM CDT [facility] BILIRUBIN TOTAL S/P/B 0.5 0.2 - 1.0 MG/DL 09/28/2021 9:35 PM CDT [facility] ALKALINE PHOSPHATASE S/P/B 144(H) 45 - 115 U/L 09/28/2021 9:35 PM CDT [facility] AST 48(H) 15 - 37 U/L 09/28/2021 9:35 PM CDT [facility] [facility] ALT 139(H) 16 - 63 U/L 09/28/2021 9:35 PM T [facility] TOTAL PROTEIN S/P/B 8.0 6.4 - 8.2 G/DL 09/28/2021 9:35 PM CDT [facility] ALBUMIN S/P/B 3.7 3.4 - 5.0 G/DL 09/28/2021 9:35 PM CDT [facility] ANION GAP 12.1 5 - 15 MMOL/L 09/28/2021 9:35 PM CDT [facility] Comment:REFERENCE RANGE NOT ESTABLISHED OSMOLALITY (CALC) 293 MOSM/KG 022 9:35 PM CDT [facility] Comment:REFERENCE RANGE NOT ESTABLISHED GFR ESTIMATE >90 >90 ML/MIN/1. 73 M2 09/28/2021 9:35 PM CDT [facility] GFR NOTES GFR REFERENCE S: 09/28/2021 9:35 PM CDT [facility] Comment: THE ESTIMATED GFR IS [...] ml/min/1.73 m2 G5,KIDNEY FAILURE: <15 ml/min/1.73 m2 09/28/2021 2:25 PM CDT us Pankaj Rosenberg MD LABORATORY Final Result [facility] [address] [place] [address], * (ABNORMAL) CBC W/DIFF AUTOMATED (09/28/2021 2:25 PM CDT) WBC 10.3 4.0 - 10.8 x10'3/uL 09/28/2021 7:44 PM CDT [facility] RBC 4.67 4.50 - 6.10 x10'6/uL 09/28/2021 7:44 PM CDT [facility] HGB 13.1 13.0 - 18.0 G/DL 09/28/2021 7:44 PM CDT [facility] HCT 40.4 37.0 - 52.0 % 09/28/2021 7:44 PM CDT [facility] MCV 86.5 78.0 - 100.0 FL 09/28/2021 7:44 PM CDT [facility] MCH 28.1 27.0 - 31.0 PG 09/28/2021 7:44 PM CDT [facility] MCHC 32.4(L) 33.0 - 36.0 G/DL 09/28/2021 7:44 PM CDT [facility] RDW 11.8 11.5 - 14.5 % 09/28/2021 7:44 PM CDT [facility] PLT 506(H) 150 - 350 x10'3/uL 09/28/2021 7:44 PM CDT [facility] MPV 10.1 7.4 - 10.4 FL 09/28/2021 7:44 PM CDT [facility] DIFFERENTIAL TYPE AUTOMATED DIFFERENTIAL 09/28/2021 7:44 PM CDT [facility] NEUTROPHILS % 71.4 % 09/28/2021 7:44 PM CDT [facility] LYMPHOCYTES % 20.0 % 09/28/2021 7:44 PM CDT [facility] % 4.9 % 09/28/2021 7:44 PM CDT [facility] EOSINOPHILS % 1.8 % 09/28/2021 7:44 PM CDT [facility] BASOPHILS % 0.5 % 09/28/2021 7:44 PM CDT [facility] IMMATURE GRANS % 1.4 % 09/28/2021 7:44 PM CDT [facility] ABS. NEUTROPHILS 7.35 1.60 - 8.30 x10'3/uL 09/28/2021 7:44 PM CDT [facility] ABS. LYMPHOCYTES 2.06 0.80 - 4.70 x10'3/uL 09/28/2021 7:44 PM CDT [facility] ABS. MONOCYTES 0.50 0.00 - 1.50 x10'3/uL 09/28/2021 7:44 PM CDT [facility] ABS. EOSINOPHILS 0.19 0.00 - 0.40 x10'3/uL 09/28/2021 7:44 PM CDT [facility] ABS. BASOPHILS 0.05 0.00 - 0.20 x10'3/uL 09/28/2021 7:44 PM CDT [facility] ABS. IMMATURE GRANULOCYTES 0.14(H) 0.00 - 0.03 x10'3/uL 09/28/2021 7:44 PM CDT [facility] 09/28/2021 2:25 PM CDT Pankaj Rosenberg MD LABORATORY Final Result Performing Organization Address City/State/[facility] Co de Phone Number [facility] [address] [place] [address], [place] [phone] documented in this encounter Visit Diagnoses Diagnosis Small bowel obstruction ([facility] HHS/HCC)- Primary Unspecified intestinal obstruction Hospital discharge follow-up Other follow-up examination Essential hypertension, benign Type 2 diabetes mellitus with hyperglycemia, without long-term current use of insulin (CMS/HCC HHS/HCC) Gastroesophageal reflux disease without esophagitis Esophageal reflux documented in this encounter Additional Health Concerns Assessment Noted Time PHQ-9 Depression Total Score: 0 08/01/19 22 2:12 PM CDT documented as of this encounter Care Teams Master Automotive Technician Relationship Specialty Start Date End Date Pankaj Rosenberg MD [address] [address] PCP - General INTERNAL MEDICINE 06/15/21 documented as of this encounter
--- OUTSIDE RECORDS SUMMARY | 2024-05-13 10:52 | XMS_ITS | Encounter Summary ---
Author Organization [facility] Address [address] [place] [address]. [place], [place] [address] [place] [address] Care Team Providers Care Furnace Mechanic Name Role Phone Pankaj Rosenberg MD Primary Care Provider [phone] Encounter Details Date Type Department Care Team (Latest Contact Info) Description 09/11/2021 Scan HEALTH INFO SRVCS Scanned, Documents Social History Tobacco Use Types Packs/Day Years [...] on file Legal Sex Male 2:58 PM OUTPATIENT PHARMACY MANAGER Gender Identity Male 07/13/2021 5:19 AM OUTPATIENT PHARMACY MANAGER Sexual Orientation Straight 07/13/2021 5: 19 AM OUTPATIENT PHARMACY MANAGER COVID-19 Exposure Response Date Recorded In the last 10 days, have yo u been in contact with someone who was confirmed or suspected to have Coronavirus/COVID-19? No / Unsure 08/26/2021 6:53 AM CDT documented as of this encounter Plan of Treatment Upcoming Encounters Date Type Department Care Team (Late st Contact Info) Description 05/15/2024 3:30 PM OUTPATIENT PHARMACY MANAGER Appointment [facility] [place] [address] Pankaj Rosenberg MD 1188 [facility] 157 [place] [address] 05/25/2024 12:45 PM OUTPATIENT PHARMACY MANAGER Office Visit [facility] Physical Therapy Critical access hospital[address] [address] Pankaj Rosenberg MD [address] [address] Maya Magaña, [place] [address] 05/30/2024 3:40 PM OUTPATIENT PHARMACY MANAGER Office Visit [facility] Medical [facility] Multispecialty [facility] [place] [address] [address] [place] [address] Pankaj Rosenberg MD [address] [address] 06/20/2024 3:40 PM OUTPATIENT PHARMACY MANAGER Telemedicine [facility] [place] [address] [address] [place] [address] Pankaj Rosenberg MD [address] [address] 06/21/2024 1:00 PM OUTPATIENT PHARMACY MANAGER Office Visit [facility] Medical Group [facility] - [place] [address] [place] [address] Jose Ratliff MD [address] [address] [place], [place] [address] 364- 03/27/2025 1:00 PM OUTPATIENT PHARMACY MANAGER Office Visit [facility] Medical [facility] Multispecialty Care - [facility] [address] [facility] [place] [address] Bob Oneal MD 3 [facility] [address] [place] [address] documented as of this encounter Visit Diagnoses Not on filedocumented in this encounter Additional Health Concerns Assessment Noted Time PHQ-9 Depression Total Score: 0 08/01/19 22 2:12 PM CDT documented as of this encounter Care Teams Furnace Mechanic Relationship Specialty Start Date End Date Pankaj Rosenberg MD [address] [address] PCP - General INTERNAL MEDICINE 06/15/21 documented as of this encounter
--- OUTSIDE RECORDS SUMMARY | 2024-05-13 10:52 | XMS_ITS | Encounter Summary ---
Author Organization [facility] Address [address] [place] [address]. [place], [place] [address] [place] [address] Care Team Providers Care Dance Hall Hostess Name Role Phone Pankaj Rosenberg MD Primary Care Provider [phone] Reason for Visit * Reason Onset Date Comments TCM 09/23/2021 Encounter Details Date Type Department Care Team (Late st Contact Info) Description 09/23/2021 Telephone [facility] Medical Group Multispecialty Care - [place] [address] [address] [place] [address] Pankaj Rosenberg MD [address] [place] [address] 157 [place] [address] TCM Social History Tobacco Use [...] on file Legal Sex Male 2:58 PM TRANSLATOR/INTERPRETER Gender Identity Male 07/13/2021 5:19 AM TRANSLATOR/INTERPRETER Sexual Orientation Straight 07/13/2021 5: 19 AM TRANSLATOR/INTERPRETER COVID-19 Exposure Response Date Recorded In the last 10 days, have yo u been in contact with someone who was confirmed or suspected to have Coronavirus/COVID-19? No / Unsure 08/26/2021 6:53 AM CDT documented as of this encounter Progress Notes * Isela Daily MA - 09/23/2021 3:53 PM CDT HERLINDA Schaefer Follow up call to patient post hospitalization Date of hospital discharge: 09.22.21 Date of admission: 09.11.2021 Patient discharged from: [facility] Discharge diagnosis/diagnoses: Obstruction bowel Procedures performed while inpatient: surgery Any follow up services needed: none Education on self management: yes Does patient have access to care and services (rides, etc) : yes Appointment scheduled for follow up in the office: 09.28.21 [place] documented in this encounter Plan of Treatment Upcoming Encounters Date Type Department Care Team (Late st Contact Info) Description 05/15/2024 3:30 PM TRANSLATOR/INTERPRETER Appointment [facility] [place] [address] Pankaj Rosenberg MD [address] [place] [address] 05/25/2024 12:45 PM TRANSLATOR/INTERPRETER Office Visit [facility] Physical Therapy [address] [place] [address] Pankaj Rosenberg MD [address] [place] [address] Maya Magaña, [place] [address] 05/30/2024 3:40 PM TRANSLATOR/INTERPRETER Office Visit [facility] Medical Group Multispecialty Care - [place] [address] [address] [place] [address] Pankaj Rosenberg MD [address] [place] [address] 06/20/2024 3:40 PM TRANSLATOR/INTERPRETER Telemedicine [facility] Multispecialty Care - [place] [address] [place] [address] [address] [place] [address] Pankaj Rosenberg MD 1188 [facility] 157 [place] [address] 06/21/2024 1:00 PM TRANSLATOR/INTERPRETER Office Visit [facility] Orthopedic & Sports Medicine - [place] [address] [place] [address] Jose Ratliff MD [address] [address] [place] [address] 03/27/2025 1:00 PM TRANSLATOR/INTERPRETER Office Visit [facility] Multispecialty Care - [facility] [address] [facility] [place] [address] Bob Oneal MD 3 [facility] [place] [address] [place] [address] documented as of this encounter Visit Diagnoses Not on filedocumented in this encounter Additional Health Concerns Assessment Noted Time PHQ-9 Depression Total Score: 0 08/01/19 22 2:12 PM CDT documented as of this encounter Care Teams Dance Hall Hostess Relationship Specialty Start Date End Date Pankaj Rosenberg MD 1188 [facility] 157 [place] [address] PCP - General INTERNAL MEDICINE 06/15/21 documented as of this encounter
--- OUTSIDE RECORDS SUMMARY | 2024-05-13 10:52 | XMS_ITS | Encounter Summary ---
Author Organization [facility] Address [address] [place] [address]. [place], [place] [address] [place] [address] Care Team Providers Care Skein Straightener Name Role Phone Pankaj Rosenberg MD Primary Care Provider [phone] Reason for Visit * Reason Onset Date Comments TCM 09/17/2021 Encounter Details Date Type Department Care Team (Late st Contact Info) Description 09/17/[address] [facility] Medical Group Multispecialty Care - [place] [address] [address] [place] [address] Pankaj Rosenberg MD [address] [place] [address] 157 [place] [address] TCM Social History Tobacco Use [...] on file Legal Sex Male 2:58 PM BELLMAKER Gender Identity Male 07/13/2021 5:19 AM BELLMAKER Sexual Orientation Straight 07/13/2021 5: 19 AM BELLMAKER COVID-19 Exposure Response Date Recorded In the last 10 days, have yo u been in contact with someone who was confirmed or suspected to have Coronavirus/COVID-19? No / Unsure 08/26/2021 6:53 AM CDT documented as of this encounter Progress Notes * Isela Daily MA - 09/17/2021 3:11 PM CDT Called patient again and went to , I left a message earlier so I did not leave another one. I will try again tomorrow inbetween patients. * Isela Daily MA - 09/17/2021 1:41 PM CDT LM for patient to call back. Been trying to call patient with no success about him being in the hospital. documented in this encounter Plan of Treatment Upcoming Encounters Date Type Department Care Team (Late st Contact Info) Description 05/15/2024 3:30 PM BELLMAKER Appointment [facility] [place] [address] Pankaj Rosenberg MD [address] [place] [address] 05/25/2024 12:45 PM BELLMAKER Office Visit [facility] Physical Therapy [address] [place] [address] Pankaj Rosenberg MD [address] [place] [address] Maya Magaña, [place] [address] 05/30/2024 3:40 PM BELLMAKER Office Visit [facility] Medical Group Multispecialty Care - [place] [address] [address] [place] [address] Pankaj Rosenberg MD [address] [place] [address] 06/20/2024 3:40 PM BELLMAKER Telemedicine [facility] Multispecialty [facility] [place] [address] [address] [place] [address] Pankaj Rosenberg MD 1188 [facility] 157 [place] [address] 06/21/2024 1:00 PM BELLMAKER Office Visit [facility] Orthopedic & Sports Medicine - [place] [address] [place] [address] Jose Ratliff MD [address] [place] [address] [place] [address] 03/27/2025 1:00 PM BELLMAKER Office Visit [facility] Multispecialty [facility] [address] [facility] [place] [address] Bob Oneal MD 3 [facility] [address] [place] [address] documented as of this encounter Visit Diagnoses Not on filedocumented in this encounter Additional Health Concerns Assessment Noted Time PHQ-9 Depression Total Score: 0 08/01/19 2:12 PM CDT documented as of this encounter Care Teams Skein Straightener Relationship Specialty Start Date End Date Pankaj Rosenberg MD [address] [place] [address] PCP - General INTERNAL MEDICINE 06/15/21 documented as of this encounter
--- OUTSIDE RECORDS SUMMARY | 2024-05-13 10:52 | XMS_ITS | Encounter Summary ---
Author Organization [facility] Address [address] [place] [address]. [place], [place] [address] [place] [address] Care Team Providers Care Sprinkler Truck Driver Name Role Phone Pankaj Rosenberg MD Primary Care Provider [phone] Reason for Visit * Reason Onset Date Comments Follow Up Call 08/18/2021 Encounter Details Date Type Department Care Team (Late st Contact Info) Description 08/18/2021 Telephone [facility] Medical Group Multispecialty Care - [place] [address] [address] [place], [place] [address] Pankaj Rosenberg MD [address] [place] [address] 157 [place] [address] Follow Up Call Social History [...] on file Legal Sex Male 2:58 PM LYE PEEL OPERATOR Gender Identity Male 07/13/2021 5:19 AM LYE PEEL OPERATOR Sexual Orientation Straight 07/13/2021 5: 19 AM LYE PEEL OPERATOR COVID-19 Exposure Response Date Recorded In the last 10 days, have yo u been in contact with someone who was confirmed or suspected to have Coronavirus/COVID-19? No / Unsure 08/18/2021 9:51 AM CDT documented as of this encounter Progress Notes * Pankaj Rosenberg MD - 08/18/2021 3:38 PM CDT I called and updated him to call [facility]; provided their number. He was returning an earlier call he had missed from MOHINDER Oneal. All questions answered. Pankaj Rosenberg MD Internal Medicine [facility]. documented in this encounter Plan of Treatment Upcoming Encounters Date Type Department Care Team (Late st Contact Info) Description 05/15/2024 3:30 PM LYE PEEL OPER[place] [address] Pankaj Rosenberg MD [address] [place] [address] 05/25/2024 12:45 PM LYE PEEL OPERATOR Office Visit [facility] Physical Therapy [address] [place] [address] [place] [address] [place] [address] Maya Magaña, [place] [address] 05/30/2024 3:40 PM LYE PEEL OPERATOR Office Visit [facility] - [address] [address] Pankaj Rosenberg MD [address] [place] [address] 06/20/2024 3:40 PM LYE PEEL OPERATOR [facility]icine [facility] [place] [address] [address] [place] [address] Pankaj Rosenberg MD 1188 [facility] 157 [place] [address] 06/21/2024 1:00 PM LYE PEEL OPERATOR Office Visit [facility] Medical Group Orthopedic & Sports Medicine - [place] [address] [place] [address] Jose Ratliff MD [address] [address] [place] [address] 03/27/2025 1:00 PM LYE PEEL OPERATOR Office Visit [facility] Multispecialty Care - [facility] [address] [facility] [place] [address] Bob Oneal MD 3 [facility] [address] [place] [address] documented as of this encounter Visit Diagnoses Not on filedocumented in this encounter Additional Health Concerns Assessment Noted Time PHQ-9 Depression Total Score: 0 08/01/19 22 2:12 PM CDT documented as of this encounter Care Teams Sprinkler Truck Driver Relationship Specialty Start Date End Date Pankaj Rosenberg MD 1188 [facility] 157 [place] [address] PCP - General INTERNAL MEDICINE 06/15/21 documented as of this encounter
--- OUTSIDE RECORDS SUMMARY | 2024-05-13 10:52 | XMS_ITS | Encounter Summary ---
Author Organization [facility] Address [address] [place] [address]. [place] [address] [place] [address] Care Team Providers Care Sugar Refinery Supervisor Name Role Phone Pankaj Rosenberg MD Primary Care Provider [phone] Encounter Details Date Type Department Care Team (Latest Contact Info) Description 08/18/2021 11:10 AM CDT - 08/18/2021 11:59 PM [facility] Hospital Encounter [facility] Cardiopulmonary Services [address] [place] [address] Mario Oneal MD [address] [place] [phone] Discharge Disposition: Home or Self Care (Routine [...] on file Legal Sex Male 2:58 PM SWIMMING POOL SERVICEPERSON Gender Identity Male 07/13/2021 5:19 AM SWIMMING POOL SERVICEPERSON Sexual Orientation Straight 07/13/2021 5: 19 AM SWIMMING POOL SERVICEPERSON COVID-19 Exposure Response Date Recorded In the last 10 days, have yo u been in contact with someone who was confirmed or suspected to have Coronavirus/COVID-19? No / Unsure 08/18/2021 9:51 AM CDT documented as of this encounter Medications at Time of Discharge amLODIPine 10 MG tabletIndications:Pr imary hypertension Take [...] 5 mg by mouth daily. 3 lisinopril 20 MG tabletIndications:Pr imary hypertension Take 1 tablet (20 mg total) by mouth daily. 90 tablet 1 07/13/2021 2 montelukast (SINGULAIR) 10 MG tabletIndications:En vironmental allergies,Allergic rhinitis, unspecified seasonality, unspecified trigger Take 1 tablet (10 mg total) by mouth nightly at bedtime. 30 tablet 3 06/15/2021 2 omeprazole 40 MG capsuleIndications:G astroesophageal reflux disease without esophagitis Take 1 capsule (40 mg total) by mouth daily. 30 capsule 2 06/15/2021 2 pravastatin 40 MG tabletIndications:Mi xed hyperlipidemia Take 1 tablet (40 mg total) by mouth nightly at bedtime. 90 tablet 1 06/15/2021 2 pravastatin 40 MG tablet Take 1 tablet by mouth nightly at bedtime. 04/29/2021 2 SITagliptin (JANUVIA) 25 mg TabIndications:Type 2 diabetes mellitus with hyperglycemia, without long-term current use of insulin ([facility]) Take 1 tablet (25 mg total) by mouth daily. 30 tablet 2 08/05/2021 2 SUCRALFATE 1 G tabletIndications:Ga stroesophageal reflux disease without esophagitis TAKE 1 TABLET(1 GRAM) BY MOUTH THREE TIMES DAILY BEFORE MEALS 120 tablet 07/22/2021 2 triamcinolone acetonide 55 MCG/ACT nasal inhalerIndications:E nvironmental allergies,Allergic rhinitis, unspecified seasonality, unspecified trigger 03/09 3 documented as of this encounter Plan of Treatment Upcoming Encounters Date Type Department Care Team (Late st Contact Info) Description 05/15/2024 3:30 PM SWIMMING POOL SERVICEPERSON Appointment [facility] [place] [address] Pankaj Rosenberg MD [address] [place] [address] 05/25/2024 12:45 PM SWIMMING POOL SERVICEPERSON Office Visit [facility] Physical Therapy [address] [place] [address] Pankaj Rosenberg MD [address] [place] [address] Maya Magaña, [place] [address] 05/30/2024 3:40 PM SWIMMING POOL SERVICEPERSON Office Visit [facility] Medical [facility] Multispecialty Care - [address] [address] Pankaj Rosenberg MD [address] [place] [address] 06/20/2024 3:40 PM SWIMMING POOL SERVICEPERSON Telemedicine [facility] Medical [facility] Multispecialty Care - [place] [address] [address] [place] [address] Pankaj Rosenberg MD [address] [place] [address] 06/21/2024 1:00 PM SWIMMING POOL SERVICEPERSON Office Visit [facility] Orthopedic [facility] Sports Medicine - [place] [address] [place] [address] Jose Ratliff MD [address] [address] [place] [address] 03/27/2025 1:00 PM SWIMMING POOL SERVICEPERSON Office Visit [facility] Multispecialty Care - [place] [address] [place] [address] Mario Oneal MD [address] [facility] [address] [place] [address] documented as of this encounter Procedures Procedure Name Priority Date/Time Associated Diagnosis Comments ECG 12-LEAD Routine 08/18/2021 11:17 AM CDT Pre-op testing documented in this encounter Results * ECG 12-Lead (08/18/2021 11:17 AM CDT) 08/18/2021 11:1 7 AM CDT Narrative [facility] RAD - 08/20/2021 9:01 PM CDT ?[facility] ? Test Date: ?2021-08-18 Pat Name: ? CHUCK AUD ? Department: ?? 85 ? Room: ? Gender: ? Male ? Dba Developer: ?? : ?1995 ? Requested By: MARIO ONEAL Order Number: [id number] ? Reading : ?? Logan Rutledge ? Measurements Intervals ?[place] ? Rate: ? 78 ? P: ?29 WV: ? 148 ?QRS: ?53 QRSD: ? 98 ? T: ?39 QT: ? 379 ? QTc: ?434 ? Interpretive Statements SINUS RHYTHM No previous ECG available for comparison Procedure Logan Begum MD - 08/20/2021 [facility] Test Date: 2021-08-18 Pat Name: CHUCK BARLOW Department: 85 Room: Gender: Male Dba Developer: : 1995 Requested By: MARIO ONEAL Order Number: [id number] [place] MD: Logan Rutledge Measurements Intervals [place] Rate: 78 P: 29 WV: 148 QRS: 53 QRSD: 98 T: 39 QT: 379 QTc: 434 Interpretive Statements SINUS RHYTHM No previous ECG available for comparison us Mario Oneal MD ECG ORDERABLES Final Result [facility] documented in this encounter Visit Diagnoses Diagnosis Pre-op testing Preoperative examination, unspecified documented in this encounter Additional Health Concerns Assessment Noted Time PHQ-9 Depression Total Score: 0 08/01/19 22 2:12 PM CDT documented as of this encounter Care Teams Sugar Refinery Supervisor Relationship Specialty Start Date End Date Pankaj Rosenberg MD [address] [address] PCP - General INTERNAL MEDICINE 06/15/21 documented as of this encounter
--- OUTSIDE RECORDS SUMMARY | 2024-05-13 10:52 | XMS_ITS | Encounter Summary ---
Author Organization [facility] Address [address] [place] [address]. [place], [place] [address] [place] [address] Care Team Providers Care Second Shift Supervisor Name Role Phone Pankaj Rosenberg MD Primary Care Provider [phone] Encounter Details Date Type Department Care Team (Latest Contact Info) Description 09/15/2021 Scan HEALTH INFO SRVCS Scanned, Documents Social [...] on file Legal Sex Male 2:58 PM MARKETING ANALYTICS MANAGER Gender Identity Male 07/13/2021 5:19 AM MARKETING ANALYTICS MANAGER Sexual Orientation Straight 07/13/2021 5: 19 AM MARKETING ANALYTICS MANAGER COVID-19 Exposure Response Date Recorded In the last 10 days, have yo u been in contact with someone who was confirmed or suspected to have Coronavirus/COVID-19? No / Unsure 08/26/2021 6:53 AM CDT documented as of this encounter Plan of Treatment Upcoming Encounters Date Type Department Care Team (Late st Contact Info) Description 05/15/2024 3:30 PM MARKETING ANALYTICS MANAGER Appointment [place] [address] Pankaj Rosenberg MD 1188 [facility] 157 [place] [address] 05/25/2024 12:45 PM MARKETING ANALYTICS MANAGER Office Visit [facility] Physical Therapy [facility] [address] Pankaj Rosenberg MD [address] [address] Maya Magaña, [place] [address] 05/30/2024 3:40 PM MARKETING ANALYTICS MANAGER Office Visit [facility] Mult[facility]ty [facility] [place] [address] [address] [place] [address] Pankaj Rosenberg MD [address] [address] 06/20/2024 3:40 PM MARKETING ANALYTICS MANAGER Telemedicine [facility] [place] [address] [address] [place] [address] Pankaj Rosenberg MD [address] [address] 06/21/2024 1:00 PM MARKETING ANALYTICS MANAGER Office Visit [facility] - [place] [address] [place] [address] Jose Ratliff MD [address] [address] [place], [place] [address]- 03/27/2025 1:00 PM MARKETING ANALYTICS MANAGER Office Visit [facility]ty Care - [facility] 3 [facility] [address] [place] [address] Bob Oneal MD 3 [facility] [address] [place] [address] documented as of this encounter Visit Diagnoses Not on filedocumented in this encounter Additional Health Concerns Assessment Noted Time PHQ-9 Depression Total Score: 0 08/01/19 22 2:12 PM CDT documented as of this encounter Care Teams Second Shift Supervisor Relationship Specialty Start Date End Date Pankaj Rosenberg MD [address] [address] PCP - General INTERNAL MEDICINE 06/15/21 documented as of this encounter
--- OUTSIDE RECORDS SUMMARY | 2024-05-13 10:52 | XMS_ITS | Encounter Summary ---
Author Organization [facility] Address [address] [place] [address]. [place], [place] [address] [place] [address] Care Team Providers Care Assistant Professor Surgical Technology Name Role Phone Pankaj Rosenberg MD Primary Care Provider [phone] Reason for Referral * Surgical (Routine) - Canceled Specialty Diagnoses / Procedures Referred By Horacio espinoza Referred To Contact GENERAL SURGERY Diagnoses Polyp of gallbladder Nausea and vomiting, unspecified vomiting type Change in bowel function Lily Cuello NP [address] [address] Phone: tel: fax: Referral ID Status Reason Start Date Expiration Date V isits Requested Visits Authorized [id number] Canceled 08/19/2021 09/19/2022 1 1 Scheduling Instructions 08/18/2021 right upper quadrant ultrasound findings revealed 2 nonmobile hyperechoic foci attached to the gallbladder wall. Most likely polyps. The largest measures 7.8 x 6.3 x 8.4 mm, and located closer toward the fundus. No shadowing gallbladder calculi. No gallbladder wall thickening or pericholecystic fluid. Increase in size and number since 2020 ultrasound. Reason for Visit * Reason Comments Follow Up US results * Consultation (Routine) - Closed Specialty Diagnoses / Procedures Referred By Horacio espinoza Referred To Contact GASTROENTEROLOGY Diagnoses Gastroesophageal reflux disease without esophagitis Pankaj Rosenberg MD 1188 [facility] [address] [place] [address] Phone: tel: fax: [facility] - [address], [address] [place] [address] Phone: tel: fax: Referral ID Status Reason Start Date Expiration Date Visits Re quested Visits Authorized [id number] Closed 07/13/2021 08/14/2022 99 99 Encounter Details Date Type Department Care Team (Latest Contact Info) Description 08/19/2021 2:20 PM CDT Teleconsult [facility] - [address], [address] [place] [phone] Lily Cuello NP 3 [facility]. [place] [address] [place] [address] Follow Up (US results) Social History Tobacco Use Types Packs/Day Years [...] on file Legal Sex Male 2:58 PM LOG SCALER Gender Identity Male 07/13/2021 5:19 AM LOG SCALER Sexual Orientation Straight 07/13/2021 5: 19 AM LOG SCALER COVID-19 Exposure Response Date Recorded In the last 10 days, have yo u been in contact with someone who was confirmed or suspected to have Coronavirus/COVID-19? No / Unsure 08/18/2021 9:51 AM CDT documented as of this encounter Patient Instructions * Patient Instructions* Lily Cuello NP - 08/19/2021 2:20 PM CDT General recommendations for fatty liver disease should include balance and healthy diet, increase physical activity, and avoid alcohol or unnecessary medications. General weight loss (5-10% over 6 months to 1 year) and good control of blood glucose (hemoglobin A1c less than 7%) are recommended. Patient with dyslipidemia should be treated with a statin. documented in this encounter Progress Notes * Lily Cuello NP - 08/19/2021 2:20 PM CDT I introduced and identified myself, received verbal consent from the patient to proceed with this telephone visit and made the patient aware that the same confidentiality and information technology technician practices apply. The patient joined the telephone visit from Home. I completed the virtual visit from Office. The following clinical staff helped with this visit MA: Jennifer Dolan MA. Total Time Spent in Minutes: 10 minutes from [id number] Patient requesting results from ultrasound performed on 08/18/2021. I informed him Dr. Oneal has not had a chance to review these findings yet my recommendations are to have a surgical evaluation for possible gallbladder removal based off of now to gallbladder polyps. One has increased in size over thepast year. Patient has had 2 years of abdominal discomfort early satiety nausea, epigastric burning. History of gastroschisis surgery as a . Patient is diabetic so he may have gastroparesis. Pt has EGD and colonoscopy scheduled on 08/26/[address] Oneal. Currently taking omeprazole 40 mg daily and sucralfate 1 Gm AC. Nausea and fullness has improved. Gassy still. Notes changes in DM medication which has helped his diarrhea fluctuations. Pt still having burning in stomach. Patient is veryagreeable to seeing a surgeon and is okay with [facility]. 08/18/2021 RUQ US IMPRESSION: 1. 2 nonmobile hyperechoic foci attached to the gallbladder wall. Most likely polyps. The largest measures 7.8 x 6.3 x 8.4 mm, and located closer toward the fundus. No shadowing gallbladder calculi. No gallbladder wall thickening or pericholecystic fluid. 2. Mild fatty infiltration of the liver without focal mass..Hepatic and portal veins are patent.. Common bile duct measures.4.4 mm. 3. Right kidney uvcuopxo15.9 x 5.4 x 5.9 cm. No focal mass or hydronephrosis. 4. Partially visualized pancreas without gross abnormality. Ordered By: MARIO ONEAL General recommendations for fatty liver disease should include balance and healthy diet, increase physical activity, and avoid alcohol or unnecessary medications. General weight loss (5-10% over 6 months to 1 year) and good control of blood glucose (hemoglobin A1c less than 7%) are recommended. Patient with dyslipidemia should be treated with a statin. Cosigned by Mario Oneal MD at 08/24/2021 5:00 PM CDT documented in this encounter Plan of Treatment Upcoming Encounters Date Type Department Care Team (Late st Contact Info) Description 05/15/2024 3:30 PM LOG SCALER Appointment [facility] [place] [address] Pnakaj Rosenberg MD [address] [place] [address] 05/25/2024 12:45 PM LOG SCALER Office Visit [facility] Physical Therapy [address] [place] [address] Pankaj Rosenberg MD [address] [place] [address] Maya Magaña, [place] [address] 05/30/2024 3:40 PM LOG SCALER Office Visit [facility] Multispecialty Care - [place] [address] [address] [place] [address] Pankaj Rosenberg MD [address] [place] [address] [place] [address] 06/20/2024 3:40 PM LOG SCALER Telemedicine [facility] Multispecialty [facility] - [place] [address] [address] [place] [address] Pankaj Rosenberg MD [address] [address] 06/21/2024 1:00 PM LOG SCALER Office Visit [facility] Orthopedic & Sports Medicine - [place] [address] [place] [address] Jose Ratliff MD 670 [facility] [address] [place] [address] 03/27/2025 1:00 PM LOG SCALER Office Visit [facility] Mult[facility]pec[facility]ty [facility] - [facility] 3 [facility], [address] [place] [address] Mario Oneal MD 3 [facility] [place] [address] [place] [address] Scheduled Referrals Name Type Priority Associated Diagnoses Orde r Schedule Ambulatory referral to General Surgery (OTHER) Referral Routine Polyp of gallbladder Nausea and vomiting, unspecified vomiting type Change in bowel function Ordered: 08/19/2021 documented as of this encounter Visit Diagnoses Diagnosis Polyp of gallbladder- Primary Cholesterolosis of gallbladder Nausea and vomiting, unspecified vomiting type Change in bowel function Other symptoms involving digestive system documented in this encounter Additional Health Concerns Assessment Noted Time PHQ-9 Depression Total Score: 0 08/01/19 22 2:12 PM CDT documented as of this encounter Care Teams Assistant Professor Surgical Technology Relationship Specialty Start Date End Date Pankaj Rosenberg MD [address] [place] [address] PCP - General INTERNAL MEDICINE 06/15/21 documented as of this encounter
--- OUTSIDE RECORDS SUMMARY | 2024-05-13 10:52 | XMS_ITS | Encounter Summary ---
Author Organization [facility] Address [address] [place] [address]. [place], [place] [address] [place] [address] Care Team Providers Care Senior Data Scientist Name Role Phone Pankaj Rosenberg MD Primary Care Provider [phone] Reason for Visit * Reason Onset Date Comments Abdominal Pain 09/11/2021 Encounter Details Date Type Department Care Team (Late st Contact Info) Description 09/11/2021 Telephone [facility] Multispecialty Care - [place] [address] [address] [place], [place] [address] Pankaj Rosenberg MD [address] [place] [address] 157 [place] [address] Abdominal Pain Social History Tobacco Use Types Packs/Day [...] on file Legal Sex Male 2:58 PM GLOBAL CEO Gender Identity Male 07/13/2021 5:19 AM GLOBAL CEO Sexual Orientation Straight 07/13/2021 5: 19 AM GLOBAL CEO COVID-19 Exposure Response Date Recorded In the last 10 days, have yo u been in contact with someone who was confirmed or suspected to have Coronavirus/COVID-19? No / Unsure 08/26/2021 6:53 AM CDT documented as of this encounter Progress Notes * Isela Daily MA - 09/11/2021 10:19 AM CDT Called patient back and Dr Rosenberg offered to see him today but he would rather go to the ER. [facility] Patient called and is stating that he has been having abdominal pain and last night was the worse. Patient says the pain is ranging between 7/10 and some time its been a 10. Patient says the pain is like a sharp burning pain and is wondering if he should go to the ER for it. documented in this encounter Plan of Treatment Upcoming Encounters Date Type Department Care Team (Late st Contact Info) Description 05/15/2024 3:30 PM GLOBAL CEO Appointment [facility] [place] [address] Pankaj Rosenberg MD [facility] [address] [address] 05/25/2024 12:45 PM GLOBAL CEO Office Visit [facility] Physical Therapy [address] [place] [address] Pankaj Rosenberg MD [address] [place] [address] Maya Magaña, [place] [address] 05/30/2024 3:40 PM GLOBAL CEO Office Visit [facility] Multispecialty Care - [place] [address] [address] [place] [address] Pankaj Rosenberg MD [address] [place] [address] [place] [address] 06/20/2024 3:40 PM GLOBAL CEO Telemedicine [facility] Multispecialty [facility] - [place] [address] [place] [address] [address] [place] [address] Pankaj Rosenberg MD 1188 [facility] 157 [place] [address] 06/21/2024 1:00 PM GLOBAL CEO Office Visit [facility] Orthopedic & Sports Medicine - [place] [address] [place] [address] Jose Ratliff MD [address] [address] [place] [address] 03/27/2025 1:00 PM GLOBAL CEO Office Visit [facility] Multispecialty [facility] 3 [facility] [address] [place] [address] Bob Oneal MD 3 [facility] [address] [place] [address] documented as of this encounter Visit Diagnoses Not on filedocumented in this encounter Additional Health Concerns Assessment Noted Time PHQ-9 Depression Total Score: 0 08/01/19 22 2:12 PM CDT documented as of this encounter Care Teams Senior Data Scientist Relationship Specialty Start Date End Date Pankaj Rosenberg MD [address] [place] [address] 157 [place] [address] PCP - General INTERNAL MEDICINE 06/15/21 documented as of this encounter
--- OUTSIDE RECORDS SUMMARY | 2024-05-13 10:52 | XMS_ITS | Encounter Summary ---
Author Organization [facility] Address [address] [place] [address]. [place] [address] [place] [address] Care Team Providers Care Front End Architect Name Role Phone Pankaj Rosenberg MD Primary Care Provider [phone] Reason for Visit * Auth/Cert Specialty Diagnoses / Procedures Referred By Contac t Referred To Contact Diagnoses Nausea and vomiting, unspecified vomiting type Change in bowel function Epigastric burning sensation Early satiety, nausea vomiting and epigastric burning of unclear etiology. Procedures UPPER GI ENDOSCOPY,DIAGNOSIS COLONOSCOPY,DIAGNOSTIC EGD COLONOSCOPY Referral ID Status Reason Start Date Expiration Date Visits Re quested Visits Authorized [id number] 1 1 Encounter Details Date Type Department Care Team (Late st Contact Info) Description 08/26/2021 7:30 AM CDT - 08/26/2021 8:14 AM CDT Surgery [facility] [address] [place] [address] Mario Oneal MD [address] [place] [id number] EGD Surgery Details Date/Time Status Location OR Service Patient Class Case Class Case Type Trauma Case? 08/26/2021 7:30 AM Posted [facility] OR Endo Gastroenterology Short Stay/Outpa tient Surgery No Panel 1 Procedure LRB Anes Op Region Wound Class Comments EGD N/A Monitor Anesthes ia Care Clean Contaminated COLONOSCOPY WITH POLYPECTOMY N/A Monitor Anesthesia Care Clean Contaminated Surgeon Surgeon Role Service Panel Mario Oneal MD Primary Gastroenterology 1 Special Needs pt is diabetic [address]700 documented in this encounter Social History Tobacco [...] on file Legal Sex Male 2:58 PM PIT HOIST OPERATOR Gender Identity Male 07/13/2021 5:19 AM PIT HOIST OPERATOR Sexual Orientation Straight 07/13/2021 5: 19 AM PIT HOIST OPERATOR COVID-19 Exposure Response Date Recorded In the last 10 days, have yo u been in contact with someone who was confirmed or suspected to have Coronavirus/COVID-19? No / Unsure 08/26/2021 6:53 AM CDT documented as of this encounter Last Filed Vital Signs Vital Sign Reading Time Taken Comments Blood Pressure 139/89 08/26/2021 7:12 AM CDT Pulse 114 08/26/2021 7:12 AM CDT Temperature 36.5 ??C (97.7 ??F) 08/26/2021 7:12 AM CD T Respiratory Rate 20 08/26/2021 7:12 AM CDT Oxygen Saturation 97% 08/26/2021 7:12 AM CDT Inhaled Oxygen Concentration - - Weight 117.9 kg (260 lb) 08/26/2021 7:12 AM CDT Height 180.3 cm (5' 11 ) 08/26/2021 7:12 AM CDT Body Mass Index 36.26 08/26/2021 7:12 AM CDT documented in this encounter Discharge Instructions * Attachments The following attachments cannot be sent through Care Everywhere. * Upper GI Endoscopy Discharge Instructions (Paraguayan) * Colonoscopy Discharge Instructions (Paraguayan) * Monitored Anesthesia Care (Paraguayan) documented in this encounter Medications at Time of Discharge CPAP DEVICE, DME,Indications:KARRIE (obstructive sleep apnea) Use daily when sleeping or taking a nap. 1 Device 08/21/2021 amLODIPine 10 MG tabletIndications:Pr imary hypertension Take 1 tablet (10 mg total) by mouth daily. 90 tablet 1 06/15/2021 04/28/202 2 AZELASTINE 0.1 % nasal sprayIndications:All ergic [...] hyperglycemia, without long-term current use of insulin ([facility]) Take 1 tablet (25 mg [...] PHYSICAL INTERVAL NOTE: I have reviewed Sheri Barlow History & Physical which was performed within the past 30 days. After examining Sheri Barlow, no change has occurred in the patient's condition since the H&P was completed. Informed Consent Discussion: Potential benefits, risks, and side effects of the patient's procedure/surgery; the likelihood of the patient achieving his or her goals; and any potential problems that might occur during recuperation were discussed with the patient/family/personal signs and displays sales representative. Reasonable alternatives to the patient's proposed procedure/surgery including benefits, risks, and side effects related to the alternatives and the risks related to not receiving the proposed care were also discussed with the patient/family/personal signs and displays sales representative. Questions were answered and the patient/family/personal signs and displays sales representative verbalized understanding and desires to proceed. [...] Oneal MD - 08/26/2021 8:35 AM CDT [facility] OpNote EGD, COLONOSCOPY WITH POLYPECTOMY Procedure Note Sheri Barlow 08/26/2021 0730 Procedure(s) (LRB): EGD (N/A) COLONOSCOPY WITH POLYPECTOMY (N/A) Surgeon(s): Mario Oneal MD Staff: Circulating Nurse 1: Rimma Wilkerson RN Scrub Person 1: Cindy Alvarado RN Anesthesia: Monitor Anesthesia Care SERVICE REPRESENTATIVE: Nishi Romero CRNA Pre-Op Diagnosis: Early satiety, [...] st Contact Info) Description 05/15/2024 3:30 PM PIT HOIST OPERATOR Appointment [facility] [place] [address] Pankaj Rosenberg MD [address] [place] [address] 05/25/2024 12:45 PM PIT HOIST OPERATOR Office Visit [facility] Physical Therapy [address] [place] [address] Pankaj Rosenberg MD [address] [place] [address] Maya Magaña, [place] [address] 05/30/2024 3:40 PM PIT HOIST OPERATOR Office Visit [facility] Medical [facility] Multispecialty Care - [address] [address] Pankaj Rosenberg MD [address] [place] [address] 06/20/2024 3:40 PM PIT HOIST OPERATOR Telemedicine [facility] Medical [facility] Multispecialty Care - [address] [address] Pankaj Rosenberg MD [address] [place] [address] 06/21/2024 1:00 PM PIT HOIST OPERATOR Office Visit [facility] Medical Group Orthopedic & Sports Medicine - [place] [address] [place] [address] Jose Ratliff MD [address] [address] [place], [place] [address] 03/27/2025 1:00 PM PIT HOIST OPERATOR Office Visit [facility] Medical Group Multispecialty Care - [facility] 3 [facility] [address] [place] [address] Mario Oneal MD 3 [facility] [address] [place] [address] documented as of this encounter Procedures Procedure [...] - 110 mg/dL 08/26/2021 7:28 AM CDT [facility] 08/26/2021 7:22 AM CDT us Mario Oneal MD POCT ORDERABLES - DEVICE Final R esult [facility] [address] [place] [address], [place] [phone] * Pathology (08/26/2021 12:00 AM CDT) PATHOLOGY [facility] ? Department of Laboratory Medicine ?[address] ?[place] [address] ? , extension [phone] ? Pathology Report ? Surgical Pathology Report Name: DAVIS, SHERI R ? Specimen #: [id number] Age: 12 1995 (Age: 26) ? Location: [facility] Sex: M ?Procedure Date: 08/26/2021 Hospital #: [id number] ?Date Received: 08/27/2021 Date Reported: 08/28/2021 Provider: [...] applicable), interpretation and sign-out were performed at [facility], [address] [place] [address], [place], [place], [address]. FINAL DIAGNOSIS: COLON, SIGMOID, POLYP, BIOPSY: ? - HYPERPLASTIC POLYP. ? Electronically Signed Out ? C. Boris Lim M.D. [facility] Tissue specimen (specimen) COLON STRUCTURE / Unknown 08/26/2021 8:24 AM CDT Comment:N/V; epigastric pain us Mario Oneal MD PATHOLOGY/CYTOLOGY ORDERABLES Fi nal Result [facility] [address] [place] [address], [phone] documented in this encounter Visit Diagnoses Diagnosis Nausea and vomiting, unspecified vomiting type Change in bowel function Other symptoms involving digestive system Epigastric burning sensation Abdominal pain, epigastric Nausea and vomiting, unspecified vomiting type Change [...] documented as of this encounter Care Teams Front End Architect Relationship Specialty Start Date End Date Pankaj Rosenberg MD 1188 [facility] [address] [place] [address] PCP - General INTERNAL MEDICINE 06/15/21 documented as of this encounter
--- OUTSIDE RECORDS SUMMARY | 2024-05-13 10:52 | XMS_ITS | Encounter Summary ---
Author Organization [facility] Address [address] [place] [address]. [place], [place] [address] [place] [address] Care Team Providers Care Education Manager Name Role Phone Pankaj Rosenberg MD Primary Care Provider [phone] Encounter Details Date Type Department Care Team (Latest Contact Info) Description 08/21/2021 Scan HEALTH INFO SRVCS Scanned, Documents Social [...] on file Legal Sex Male 2:58 PM POWERTRAIN CALIBRATION ENGINEER Gender Identity Male 07/13/2021 5:19 AM POWERTRAIN CALIBRATION ENGINEER Sexual Orientation Straight 07/13/2021 5: 19 AM POWERTRAIN CALIBRATION ENGINEER COVID-19 Exposure Response Date Recorded In the last 10 days, have yo u been in contact with someone who was confirmed or suspected to have Coronavirus/COVID-19? No / Unsure 08/26/2021 6:53 AM CDT documented as of this encounter Plan of Treatment Upcoming Encounters Date Type Department Care Team (Late st Contact Info) Description 05/15/2024 3:30 PM POWERTRAIN CALIBRATION ENGINEER Appointment [facility] [address] Pankaj Rosenberg MD 1188 [facility] 157 [place] [address] 05/25/2024 12:45 PM POWERTRAIN CALIBRATION ENGINEER Office Visit [facility] [address] Pankaj Rosenberg MD [address] [address] Maya Magaña, [place] [address] 05/30/2024 3:40 PM POWERTRAIN CALIBRATION ENGINEER Office Visit [facility] Medical [facility] Multispecialty [facility] [place] [address] [address] [place] [address] Pankaj Rosenberg MD [address] [address] 06/20/2024 3:40 PM POWERTRAIN CALIBRATION ENGINEER Telemedicine [facility] [place] [address] [address] [place] [address] Pankaj Rosenberg MD [address] [address] 06/21/2024 1:00 PM POWERTRAIN CALIBRATION ENGINEER Office Visit [facility] Medical Group [facility] - [place] [address] [place] [address] Jose Ratliff MD [address] [address] [place] [address]- 03/27/2025 1:00 PM POWERTRAIN CALIBRATION ENGINEER Office Visit [facility] Medical [facility] Multispecialty Care - [facility] 3 [facility] [address] [place] [address] Bob Oneal MD 3 [facility] 5000 [place] [address] documented as of this encounter Visit Diagnoses Not on filedocumented in this encounter Additional Health Concerns Assessment Noted Time PHQ-9 Depression Total Score: 0 08/01/19 22 2:12 PM CDT documented as of this encounter Care Teams Education Manager Relationship Specialty Start Date End Date Pankaj Rosenberg MD [address] [address] PCP - General INTERNAL MEDICINE 06/15/21 documented as of this encounter
--- OUTSIDE RECORDS SUMMARY | 2024-05-13 10:52 | XMS_ITS | Encounter Summary ---
Author Organization [facility] Address [address] [place] [address]. [place], [place] [address] [place] [address] Care Team Providers Care Washing Machine Loader And Puller Name Role Phone Pankaj Rosenberg MD Primary Care Provider [phone] Encounter Details Date Type Department Care Team (Latest Contact Info) Description 08/18/2021 Travel Social History Tobacco Use Types Packs/Day [...] on file Legal Sex Male 2:58 PM PNEUMATIC DEICER INSPECTOR Gender Identity Male 07/13/2021 5:19 AM PNEUMATIC DEICER INSPECTOR Sexual Orientation Straight 07/13/2021 5: 19 AM PNEUMATIC DEICER INSPECTOR COVID-19 Exposure Response Date Recorded In the last 10 days, have yo u been in contact with someone who was confirmed or suspected to have Coronavirus/COVID-19? No / Unsure 08/18/2021 9:51 AM CDT documented as of this encounter Plan of Treatment Upcoming Encounters Date Type Department Care Team (Late st Contact Info) Description 05/15/2024 3:30 PM PNEUMATIC DEICER INSPECTOR Appointment [facility] [place], [place] [address] Pankaj Rosenberg MD [address] [address] 05/25/2024 12:45 PM PNEUMATIC DEICER INSPECTOR Office Visit [facility] Physical Therapy [facility] 157 [place] [address] Pankaj Rosenberg MD 1188 [facility] 157 [place] [address] Maya Magaña, [place] [address] 05/30/2024 3:40 PM PNEUMATIC DEICER INSPECTOR Office Visit [facility] Medical [facility] [place] [facility] Multispecialty [facility] [place] [address] [facility] 157 [address] [place] [address] Pankaj Rosenberg MD [address] [address] 06/20/2024 3:40 PM PNEUMATIC DEICER INSPECTOR Telemedicine [facility] [address] [place] [address] Pankaj Rosenberg MD [address] [address] 06/21/2024 1:00 PM PNEUMATIC DEICER INSPECTOR Office Visit [facility] Medical Group [facility] - [place] [address] [place] [address] Jose Ratliff MD [address] [address] [place] [address] 03/27/2025 1:00 PM PNEUMATIC DEICER INSPECTOR Office Visit [facility] Medical [facility] Multispecialty Care - [facility] 3 [facility], [address] [place] [phone] Bob Oneal MD [address] [place] [address] documented as of this encounter Visit Diagnoses Not on filedocumented in this encounter Additional Health Concerns Assessment Noted Time PHQ-9 Depression Total Score: 0 08/01/19 22 2:12 PM CDT documented as of this encounter Care Teams Washing Machine Loader And Puller Relationship Specialty Start Date End Date Pankaj Rosenberg MD [address] [address] PCP - General INTERNAL MEDICINE 06/15/21 documented as of this encounter
--- OUTSIDE RECORDS SUMMARY | 2024-05-13 10:52 | XMS_ITS | Encounter Summary ---
Author Organization [facility] Address [address] [place] [address]. [place], [place] [address] [place] [address] Care Team Providers Care Barber Apprentice Name Role Phone Pankaj Rosenberg MD Primary Care Provider [phone] Reason for Visit * Reason Onset Date Comments Medication 09/24/2021 Encounter Details Date Type Department Care Team (Late st Contact Info) Description 09/24/2021 Telephone [facility] Medical Group Multispecialty Care - [place] [address] [address] [place], [place] [phone] Pankaj Rosenberg MD [address] [place] [address] 157 [place] [address] Medication Social History Tobacco Use Types Packs/Day [...] on file Legal Sex Male 2:58 PM ACT ENGLISH TUTOR Gender Identity Male 07/13/2021 5:19 AM ACT ENGLISH TUTOR Sexual Orientation Straight 07/13/2021 5: 19 AM ACT ENGLISH TUTOR COVID-19 Exposure Response Date Recorded In the last 10 days, have yo u been in contact with someone who was confirmed or suspected to have Coronavirus/COVID-19? No / Unsure 08/26/2021 6:53 AM CDT documented as of this encounter Progress Notes * Isela Daily MA - 09/24/2021 3:08 PM CDT Chuck called and is worried. He hasnt heard anything about if he should go back on his meds or not. Can you call him and let him know or what should I tell him documented in this encounter Plan of Treatment Upcoming Encounters Date Type Department Care Team (Late st Contact Info) Description 05/15/2024 3:30 PM ACT ENGLISH TUTOR Appointment [facility] [place] [address] Pankaj Rosenberg MD [address] [place] [id number] 05/25/2024 12:45 PM ACT ENGLISH TUTOR Office Visit [facility] Physical Therapy [address] [place] [address] Pankaj Rosenberg MD [address] [place] [address] Maya Magaña, [place] [address] 05/30/2024 3:40 PM ACT ENGLISH TUTOR [facility] [place] [address] [address] [place] [address] [place] [address] [place] [address] 06/20/2024 3:40 PM ACT ENGLISH TUTOR Telemedicine [facility] [place] [address] [address] [place] [address] Pankaj Rosenberg MD 1188 [facility] 157 [place] [address] 06/21/2024 1:00 PM ACT ENGLISH TUTOR Office Visit [facility] Group [facility] - [place] [address] [place] [address] Jose Ratliff MD [address] [address] [place] [address] 03/27/2025 1:00 PM ACT ENGLISH TUTOR Office Visit [facility] Multispecialty Care - [facility] 3 [facility] [address] [place] [address] Bob Oneal MD 3 [facility] [place] [address] [place] [address] documented as of this encounter Visit Diagnoses Not on filedocumented in this encounter Additional Health Concerns Assessment Noted Time PHQ-9 Depression Total Score: 0 08/01/19 22 2:12 PM CDT documented as of this encounter Care Teams Barber Apprentice Relationship Specialty Start Date End Date Pankaj Rosenberg MD 1188 [facility] 157 [place] [address] PCP - General INTERNAL MEDICINE 06/15/21 documented as of this encounter
--- OUTSIDE RECORDS SUMMARY | 2024-05-13 10:52 | XMS_ITS | Encounter Summary ---
Author Organization [facility] Address [address] [place] [address]. [place] [address] [place] [address] Care Team Providers Care Insurance Risk Manager Name Role Phone Pankaj Rosenberg MD Primary Care Provider [phone] Reason for Referral * Imaging (Routine) - Closed Specialty Diagnoses / Procedures Referred By Horacio espinoza Referred To Contact RADIOLOGY Diagnoses Gallbladder polyp Procedures US ABD LIMITED Mario Oneal MD [address] [address] Phone: tel: fax: Referral ID Status Reason Start Date Expiration Date Visits Re quested Visits Authorized [id number] Closed 07/31/2021 08/31/2022 1 1 Reason for Visit * Imaging (Routine) - Closed Specialty Diagnoses / Procedures Referred By Horacio espinoza Referred To Contact RADIOLOGY Diagnoses Gallbladder polyp Procedures US ABD LIMITED Mario Oneal MD [address] [address] Phone: tel: fax: Referral ID Status Reason Start Date Expiration Date Visits Re quested Visits Authorized [id number] Closed 07/31/2021 08/31/2022 1 1 Encounter Details Date Type Department Care Team (Latest Contact Info) Description 08/18/2021 9:55 AM CDT - 08/18/2021 11:09 AM CDT Hospital Encounter [facility] [address] [place] [id number] Mario Oneal MD [address] [place] [address] Discharge Disposition: Home or Self Care (Routine [...] on file Legal Sex Male 2:58 PM FLUME MAKER Gender Identity Male 07/13/2021 5:19 AM FLUME MAKER Sexual Orientation Straight 07/13/2021 5: 19 AM FLUME MAKER COVID-19 Exposure Response Date Recorded In the [...] of insulin ([facility]) Take 1 tablet (25 mg total) [...] Progress Notes * Mario Oneal MD - 08/18/2021 10:30 AM CDT Your US shows gallbladder polyps that have grown in size. See surgery for possible removal. * Louann Lomeli LPN - 08/18/2021 10:30 AM CDT Pt aware of results documented in this encounter Plan of Treatment Upcoming Encounters Date Type Department Care Team (Late st Contact Info) Description 05/15/2024 3:30 [address] [place] [address] Pankaj Rosenberg MD [address] [address] 05/25/2024 12:45 PM FLUME MAKER Office [facility] Physical Therapy [address] [place] [address] Pankaj Rosenberg MD [address] [address] Maya Magaña, [place] [address] 05/30/2024 3:40 PM FLUME MAKER Office Visit [facility] Medical [facility] Multispecialty Care - [place] [address] [address] [place] [address] Pankaj Rosenberg MD [address] [address] 06/20/2024 3:40 PM FLUME MAKER Telemedicine [facility] Medical [facility] [place] [address] [address] [place] [address] Pankaj Rosenberg MD [facility]8 [address] [address] 06/21/2024 1:00 PM FLUME MAKER Office Visit [facility] Medical Group Orthopedic [facility] Medicine - [place] [address] [place] [address] Jose Ratliff MD [address] [address] [place] [address] 03/27/2025 1:00 PM FLUME MAKER Office Visit [facility] Medical Group Multispecialty Care - [address] [place] [address] Mario Oneal MD 3 [facility] [place] [place] [address] documented as of this encounter Procedures Procedure Name Priority Date/Time Associated Diagnosis Comments US ABD LIMITED Routine 08/18/2021 10:46 AM CDT Gallbladder polyp documented in this encounter Results * US ABD LIMITED (08/18/2021 10:46 AM CDT) Anatomical Region Laterality Modality Abdomen Ultrasound 08/18/2021 11:0 1 AM CDT Impressions 08/18/2021 11:04 AM CDT IMPRESSION: 1. ??2 nonmobile hyperechoic foci attached to the gallbladder wall. Most likely polyps. The largest measures 7.8 x 6.3 x 8.4 mm, and located closer toward the fundus. No shadowing gallbladder calculi. No gallbladder wall thickening or pericholecystic fluid. 2. ??Mild fatty infiltration of the liver without focal mass..Hepatic and portal veins are patent.. Common bile duct measures.4.4 mm. 3. ??Right kidney iyehzype48.9 x 5.4 x 5.9 cm. No focal mass or hydronephrosis. 4. ??Partially visualized pancreas without gross abnormality. Ordered By: MARIO ONEAL Interpreted By: Herman Perkins, 08/18/2021 11:01 AM Narrative 08/18/2021 11:04 AM CDT IMAGING STUDIES: ??US ABD LIMITED ? DATE: ??08/18/2021 10:02 AM COMPARISON STUDIES: No previous exams available CLINICAL HISTORY: Cholesterolosis of gallbladder. Procedure Note Nikolai Perkins MD - 08/18/2021 IMAGING STUDIES: US ABD LIMITED DATE: 08/18/2021 10:02 AM COMPARISON STUDIES: No previous exams available CLINICAL HISTORY: Cholesterolosis of gallbladder. IMPRESSION: 1. 2 nonmobile hyperechoic foci attached to the gallbladder wall. Mostlikely polyps. The largest measures 7.8 x 6.3 x 8.4 mm, and located closertoward the fundus. No shadowing gallbladder calculi. No gallbladder wallthickening or pericholecystic fluid. 2. Mild fatty infiltration of the liver without focal mass..Hepatic andportal veins are patent.. Common bile duct measures.4.4 mm. 3. Right kidney qvmacxxc85.9 x 5.4 x 5.9 cm. No focal mass orhydronephrosis. 4. Partially visualized pancreas without gross abnormality. Ordered By: MARIO ONEAL Interpreted By: Herman Perkins, 08/18/2021 11:01 AM Mario Oneal MD ULTRASOUND Final Result documented in this encounter Visit Diagnoses Diagnosis Gallbladder polyp Cholesterolosis of gallbladder documented in this encounter Additional Health Concerns Assessment Noted Time PHQ-9 Depression Total Score: 0 08/01/19 22 2:12 PM CDT documented as of this encounter Care Teams Insurance Risk Manager Relationship Specialty Start Date End Date Pankaj Rosenberg MD [address] [address] PCP - General INTERNAL MEDICINE 06/15/21 documented as of this encounter
--- OUTSIDE RECORDS SUMMARY | 2024-05-13 10:52 | XMS_ITS | Encounter Summary ---
Author Organization [facility] Address [address] [place] [address]. [place], [place] [address] [place] [address] Care Team Providers Care Enrollment Representative Name Role Phone Pankaj Rosenberg MD Primary Care Provider Reason for Visit * Reason Onset Date Comments TCM 09/16/2021 Encounter Details Date Type Department Care Team (Late st Contact Info) Description 09/16/2021 Telephone [facility] Medical Group Multispecialty Care - [place] [address] [address] [place] [address] Pankaj Rosenberg MD [address] [place] [address] 157 [place] [address] TCM Social History Tobacco Use [...] on file Legal Sex Male 2:58 PM FUEL EFFICIENT AIRCRAFT DESIGNER Gender Identity Male 07/13/2021 5:19 AM FUEL EFFICIENT AIRCRAFT DESIGNER Sexual Orientation Straight 07/13/2021 5: 19 AM FUEL EFFICIENT AIRCRAFT DESIGNER COVID-19 Exposure Response Date Recorded In the last 10 days, have yo u been in contact with someone who was confirmed or suspected to have Coronavirus/COVID-19? No / Unsure 08/26/2021 6:53 AM CDT documented as of this encounter Progress Notes * Isela Daily MA - 09/16/2021 2:38 PM CDT Tried and called patient and phone went to . Will tried before end of day documented in this encounter Plan of Treatment Upcoming Encounters Date Type Department Care Team (Late st Contact Info) Description 05/15/2024 3:30 PM FUEL EFFICIENT AIRCRAFT DESIGNER Appointment [facility] [place] [address] Pankaj Rosenberg MD [address] [place] [address] 05/25/2024 12:45 PM FUEL EFFICIENT AIRCRAFT DESIGNER Office Visit [facility] Physical Therapy [address] [place] [address] Pankaj Rosenberg MD [address] [place] [address] Maya Magaña, [place] [address] 05/30/2024 3:40 PM FUEL EFFICIENT AIRCRAFT DESIGNER [facility] - [place] [address] [address] [place] [address] Pankaj Rosenberg MD [facility] [address] [address] 06/20/2024 3:40 PM FUEL EFFICIENT AIRCRAFT DESIGNER Telemedicine [place] [address] [address] [place] [address] Pankaj Rosenberg MD [address] [place] [address] 06/21/2024 1:00 PM FUEL EFFICIENT AIRCRAFT DESIGNER Office Visit [facility]opedic [facility] - [place] [address] [place] [address] Jose Ratliff MD [address] [place] [address] [place] [address] 03/27/2025 1:00 PM FUEL EFFICIENT AIRCRAFT DESIGNER Office Visit [facility] Multispecialty Care - [facility] 3 [facility] [address] [place] [address] Bob Oneal MD [address] [facility] [address] [place] [address] documented as of this encounter Visit Diagnoses Not on filedocumented in this encounter Additional Health Concerns Assessment Noted Time PHQ-9 Depression Total Score: 0 08/01/19 22 2:12 PM CDT documented as of this encounter Care Teams Enrollment Representative Relationship Specialty Start Date End Date Pankaj Rosenberg MD 1188 [facility] 157 [place] [address] PCP - General INTERNAL MEDICINE 06/15/21 documented as of this encounter
--- OUTSIDE RECORDS SUMMARY | 2024-05-13 10:52 | XMS_ITS | Encounter Summary ---
Author Organization [facility] Address [address] [place] [address]. [place], [place] [address] [place] [address] Care Team Providers Care Amusement Ride Operator Name Role Phone Pankaj Rosenberg MD Primary Care Provider [phone] Reason for Visit * Reason Onset Date Comments Follow Up Call 09/21/2021 Encounter Details Date Type Department Care Team (Late st Contact Info) Description 09/21/2021 Telephone [facility] Medical Group Multispecialty Care - [place] [address] [address] [place], [place] [phone] Pankaj Rosenberg MD [address] [place] [address] 157 [place] [address] Follow Up Call Social History Tobacco Use Types Packs/Day Years Used Date Smoking Tobacco: Never Smokeless Tobacco: Former Snuff, Chew Quit: 08/14/2020 Comments:counseled by Dr Sammie gallarod Alcohol Use Standard Drinks/Week Comments Yes 5 (1 standard drink = 0.6 oz pur e alcohol) PHQ-2 Answer Date Recorded PHQ-2 Score - If the patient scores above 3, please move on to questions 3-9 0 07/31/2021 Sex and Gender Information Value Date Recorded Sex Assigned at Not on file Legal Sex Male 2:58 PM TRAVEL FREIGHT AND PASSENGER AGENT Gender Identity Male 07/13/2021 5:19 AM TRAVEL FREIGHT AND PASSENGER AGENT Sexual Orientation Straight 07/13/2021 5: 19 AM TRAVEL FREIGHT AND PASSENGER AGENT COVID-19 Exposure Response Date Recorded In the last 10 days, have yo u been in contact with someone who was confirmed or suspected to have Coronavirus/COVID-19? No / Unsure 08/26/2021 6:53 AM CDT documented as of this encounter Progress Notes * Pankaj Rosenberg MD - 09/21/2021 7:36 AM CDT I called and spoke to patient. He is still at [facility]. He tells me he is not yet discharged. He will call once discharged to set up for a TCM follow up. Pankaj Rosenberg MD Internal Medicine [facility]. documented in this encounter Plan of Treatment Upcoming Encounters Date Type Department Care Team (Late st Contact Info) Description 05/15/2024 3:30 PM TRAVEL FREIGHT AND PASSENGER AGENT Appointment [facility] [place] [address] Pankaj Rosenberg MD [address] [place] [address] 05/25/2024 12:45 PM TRAVEL FREIGHT AND PASSENGER AGENT Office Visit [facility] Physical Therapy [address] [place] [address] Pankaj Rosenberg MD [address] [address] Maya Magaña, [place] [address] 05/30/2024 3:40 PM TRAVEL FREIGHT AND PASSENGER AGENT [facility] [place] [address] [address] [place] [address] Pankaj Rosenberg MD [address] [address] 06/20/2024 3:40 PM TRAVEL FREIGHT AND PASSENGER AGENT [facility] - [address] [place] [address] Pankaj Rosenberg MD 1188 [facility] 157 [place] [address] 06/21/2024 1:00 PM TRAVEL FREIGHT AND PASSENGER AGENT Office Visit [facility] Orthopedic & Sports Medicine - [place] [address] [place] [address] Jose Ratliff MD [address] [place] [address] [place] [address] 03/27/2025 1:00 PM TRAVEL FREIGHT AND PASSENGER AGENT Office Visit [facility] Multispecialty Care - [facility] 3 [facility] [address] [place] [address] Bob Oneal MD 3 [facility] [address] [place] [address] documented as of this encounter Visit Diagnoses Not on filedocumented in this encounter Additional Health Concerns Assessment Noted Time PHQ-9 Depression Total Score: 0 08/01/19 22 2:12 PM CDT documented as of this encounter Care Teams Amusement Ride Operator Relationship Specialty Start Date End Date Pankaj Rosenberg MD [address] [place] [address] 157 [place] [address] PCP - General INTERNAL MEDICINE 06/15/21 documented as of this encounter
--- OUTSIDE RECORDS SUMMARY | 2024-05-13 10:52 | XMS_ITS | Encounter Summary ---
Author Organization [facility] Address [address] [place] [address]. [place] [address] [place] [address] Care Team Providers Care Teaching Associate Name Role Phone Pankaj Rosenberg MD Primary Care Provider [phone] Reason for Visit * Reason Onset Date Comments Results 08/19/2021 Encounter Details Date Type Department Care Team (Late st Contact Info) Description 08/19/2021 Telephone [facility] Multispecialty Care - [address] [place] [id number] Bob Oneal MD 3 [facility] [place] [address] [place] [address] Results Social History Tobacco Use Types Packs/Day [...] on file Legal Sex Male 2:58 PM BOWLING BALL PATCHER Gender Identity Male 07/13/2021 5:19 AM BOWLING BALL PATCHER Sexual Orientation Straight 07/13/2021 5: 19 AM BOWLING BALL PATCHER COVID-19 Exposure Response Date Recorded In the last 10 days, have yo u been in contact with someone who was confirmed or suspected to have Coronavirus/COVID-19? No / Unsure 08/18/2021 9:51 AM CDT documented as of this encounter Progress Notes * Jennifer Dolan - 08/19/2021 12:40 PM CDT Phone visit scheduled. * Lily Cuello NP - 08/19/2021 12:04 PM CDT Please schedule telephone appointment with patient to discuss findings if patient is willing to do so I will talk to him today after clinic patients. * Jennifer Dolan - 08/19/2021 11:17 AM CDT Patient is requesting ultrasound results. Please advise? documented in this encounter Plan of Treatment Upcoming Encounters Date Type Department Care Team (Late st Contact Info) Description 05/15/2024 3:30 PM BOWLING BALL PATCHER Appointment [facility] [place] [address] Pankaj Rosenberg MD [address] [place] [address] 05/25/2024 12:45 PM BOWLING BALL PATCHER Office Visit [facility] Physical Therapy [address] [place] [address] Pankaj Rosenberg MD [address] [place] [address] Maya Magaña, [place] [address] 05/30/2024 3:40 PM BOWLING BALL PATCHER Office Visit [facility] Multispecialty Care - [place] [address] [address] [place] [address] Pankaj Rosenberg MD [address] [address] 06/20/2024 3:40 PM BOWLING BALL PATCHER Telemedicine [facility] Multispecialty Care - [place] [address] [address] [place] [address] Pankaj Rosenberg MD [address] [address] 06/21/2024 1:00 PM BOWLING BALL PATCHER Office Visit [facility] Orthopedic & Sports Medicine - [address] [place] [address] Jose Ratliff MD [address] [facility] [address] [place] [address] 03/27/2025 1:00 PM BOWLING BALL PATCHER Office Visit [facility] Multispecialty Care - [facility] 3 [facility], [address] [place] [address] Bob Oneal MD 3 [facility] [address] [place] [address] documented as of this encounter Visit Diagnoses Not on filedocumented in this encounter Additional Health Concerns Assessment Noted Time PHQ-9 Depression Total Score: 0 08/01/19 2:12 PM CDT documented as of this encounter Care Teams Teaching Associate Relationship Specialty Start Date End Date Pankaj Rosenberg MD [address] [place] [address] PCP - General INTERNAL MEDICINE 06/15/21 documented as of this encounter
--- OUTSIDE RECORDS SUMMARY | 2024-05-13 10:52 | XMS_ITS | Encounter Summary ---
Author Organization [facility] Address [address] [place] [address]. [place], [place] [address] [place] [address] Care Team Providers Care Human Resources Benefits Manager Name Role Phone Pankaj Rosenberg MD Primary Care Provider [phone] Encounter Details Date Type Department Care Team [...] on file Legal Sex Male 2:58 PM SOFTWARE ENGINEER Gender Identity Male 07/13/2021 5:19 AM SOFTWARE ENGINEER Sexual Orientation Straight 07/13/2021 5: 19 AM SOFTWARE ENGINEER COVID-19 Exposure Response Date Recorded In the last 10 days, have yo u been in contact with someone who was confirmed or suspected to have Coronavirus/COVID-19? No / Unsure 09/28/2021 1:40 PM CDT documented as of this encounter Plan of Treatment Upcoming Encounters Date Type Department Care Team (Late st Contact Info) Description 05/15/2024 3:30 PM SOFTWARE ENGINEER Appointment [facility] [place] [address] Pankaj Rosenberg MD 1188 [facility] 157 [place] [address] 05/25/2024 12:45 PM SOFTWARE ENGINEER Office Visit [facility] Physical Therapy [facility] [address] Pankaj Rosenberg MD [address] [address] Maya Magaña, [place] [address] 05/30/2024 3:40 PM SOFTWARE ENGINEER Office Visit [facility] Multispecialty [facility] - [place] [address] [address] [place] [address] Pankaj Rosenberg MD [address] [address] 06/20/2024 3:40 PM SOFTWARE ENGINEER Telemedicine [facility] Medical [facility] - [place] [address] [address] [place] [address] Pankaj Rosenberg MD [address] [address] 06/21/2024 1:00 PM SOFTWARE ENGINEER Office Visit [facility] Medical Group Orthopedic & Sports Medicine - [place] [address] [place] [address] Jose Ratliff MD [address] [address] [place], [place] [address] 03/27/2025 1:00 PM SOFTWARE ENGINEER Office Visit [facility] Mult[facility]pecialty Care - [facility] 3 [facility] [address] [place] [address] Bob Oneal MD 3 [facility] [address] [place] [address] documented as of this encounter Visit Diagnoses Not on filedocumented in this encounter Additional Health Concerns Assessment Noted Time PHQ-9 Depression Total Score: 0 08/01/19 22 2:12 PM CDT documented as of this encounter Care Teams Human Resources Benefits Manager Relationship Specialty Start Date End Date Pankaj Rosenberg MD [address] [address] PCP - General INTERNAL MEDICINE 06/15/21 documented as of this encounter
--- OUTSIDE RECORDS SUMMARY | 2024-05-13 10:52 | XMS_ITS | Encounter Summary ---
Author Organization [facility] Address [address] [place] [address]. [place], [place] [address] [place] [address] Care Team Providers Care Shading Painter Name Role Phone Pankaj Rosenberg MD Primary Care Provider [phone] Reason for Visit * Reason Comments Diabetes GERD Hypertension Sleep Apnea Pt has been called r egarding cpap & on wtg list for machine Hyperlipidemia Encounter Details Date Type Department Care Team (Latest Contact Info) Description 11/18/2021 2:30 PM CDT Office Visit [facility] Medical Group Multispecialty Care - [address] [place] [address] Pankaj Rosenberg MD [address] [place] [address] 157 [place] [address] Diabetes; GERD; Hypertension; Sleep Apnea (Pt has been called regarding cpap & on wtg list for machine); Hyperlipidemia Social History Tobacco Use Types Packs/Day Years [...] on file Legal Sex Male 2:58 PM DECKHAND ENGINEER Gender Identity Male 07/13/2021 5:19 AM DECKHAND ENGINEER Sexual Orientation Straight 07/13/2021 5: 19 AM DECKHAND ENGINEER COVID-19 Exposure Response Date Recorded In the last 10 days, have srinivasan choi been in contact with someone who was confirmed or suspected to have Coronavirus/COVID-19? No / Unsure 11/18/2021 2:18 PM CDT documented as of this encounter Last Filed Vital Signs Vital Sign Reading Time Taken Comments Blood Pressure 129/84 11/18/2021 2:36 PM CDT Pulse 97 11/18/2021 2:36 PM CDT Temperature 37.4 ??C (99.3 ??F) 11/18/2021 2:36 PM CD T Respiratory Rate 18 11/18/2021 2:36 PM CDT Oxygen Saturation 97% 11/18/2021 2:36 PM CDT Inhaled Oxygen Concentration - - Weight 113.9 kg (251 lb) 11/18/2021 2:36 PM CDT Height 180.3 cm (5' 11 ) 11/18/2021 2:36 PM CDT Body Mass Index 35.01 11/18/2021 2:36 PM CDT documented in this encounter Patient Instructions * Patient Instructions* Pankaj Rosenberg MD - 11/18/2021 2:58 PM CDT Follow up in 5 months for your next visit. Please work on loosing some weight. Cut back on using alcohol. Follow up with pulmonary as planned. Please get your diabetic eye exam done. [facility] # [phone]. documented in this encounter Progress Notes * Pankaj Rosenberg MD - 11/18/2021 2:30 PM CDTSummary: Follow-up notes Images from the original note were not included. Internal Medicine Outpatient Progress Note CC: Diabetes, GERD, Hypertension, Sleep Apnea (Pt has been called regarding cpap & on wtg list for machine), and Hyperlipidemia HPI: Chuck Barlow is a 26-year-old male who presents for follow-up for hypertension, diabetes mellitus, GERD and obstructive sleep apnea. ?? For patient's hypertension, recently his dose of lisinopril had to be decreased from 40 mg to 10 mg. He was recently out of the hospital and noted to have soft blood pressures. Home blood pressures currently average 120/80mmhg. His blood pressure at today's visit is controlled at 129/84 mmhg. Also on amlodipine 10 mg daily. Known diabetic. Denies any concerns for shortness of breath, chest tightness with activity, palpitations, ankle swelling, orthopnea, paroxysmal nocturnal or chronic cough. ?? Patient also here for follow-up of diabetes mellitus. Patient is currently on Januvia 25 mg daily. Has not tolerated metformin in the past. Compliant with medications without any side effects. A1c attoda's visit is 5.7%. Has a referral to have his diabetic eye exam and patient tells me he is yet to get done. Denies any concerns for polyuria, polydipsia, nocturia or recent admissions to the emergency room for diabetic complications. ?? Patient is also here for follow-up of GERD symptoms. He is currently on omeprazole 40 mg daily. He recently was seen by gastroenterology. 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 He tells me he still has the gall bladder polyp whichhas to be taken care of at some point in time. he will like to eventually follow up with Dr Castellanos at [facility] at some point in time to get done. Currently patient notes he is feeling well and has no complaints. Of note, patient with underlining history of anthrogryposis. His CMP since dischar ge was noted to be abnormal for his liver enzymes. Uses alcohol occasionally. ?? Patient also diagnosed with severe obstructive sleep apnea. He has an order for CPAP machine and patient tells me he is yet to get his machine. Was referred to [facility]. Has since been referred to pulmonary and has an appointment in March of 2022. Problem List Patient Active Problem List Diagnosis [...] POLYPECTOMY performed by Bob Oneal MD at [facility] OR ??? NONE ??? SEPTOPLASTY ??? SMALL INTESTINE SURGERY Family [...] Outpatient Medications Marked as Taking for the 11/18/21 encounter (Office Visit) with Pankaj Rosenberg MD Medication Sig Dispense Refill ??? amLODIPine 10 MG tablet Take 1 tablet (10 mg total) by mouth daily. 90 tablet 1 ??? cetirizine 5 MG chewable tablet Chew 5 mg by mouth daily. ??? lisinopril 10 MG tablet Take 1 tablet (10 mg total) by mouth daily. 90 tablet 1 ??? omeprazole 40 MG capsule Take 1 capsule (40 mg total) by mouth daily. 30 capsule 4 ??? pravastatin 40 MG tablet Take 1 tablet (40 mg total) by mouth nightly at bedtime. 90 tablet 1 ??? SITagliptin (JANUVIA) 25 mg Tab Take 1 tablet (25 mg total) by mouth daily. 30 tablet 5 ??? triamcinolone acetonide 55 MCG/ACT nasal inhaler Allergies: No Known Allergies Review of Systems Constitutional: Negative for chills, diaphoresis, fever, malaise/fatigue and weight loss. HENT: Negative. Eyes: Negative. Respiratory: Negative. Cardiovascular: Negative for chest pain, palpitations, orthopnea, claudication, leg swelling and PND. Gastrointestinal: Negative. Genitourinary: Negative. Musculoskeletal: Negative. Neurological: Negative. Psychiatric/Behavioral: Negative. Objective: Filed Vitals: 11/18/21 1436 BP: 129/84 Pulse: 97 Resp: 18 Temp: 99.3 ??F (37.4 ??C) TempSrc: Temporal SpO2: 97% Weight: 113.9 kg (251 lb) Height: 5' 11 (1.803 m) Body mass index is 35.01 kg/m??. General alert, cooperative, no distress HEENT [...] sounds normal. No masses. No hepatomegaly appreciated. Surgical scar well healed. No hernia. Extremities Extremities atraumatic, no cyanosis, 2+ pedal [...] hyperglycemia, without long-term current use of insulin ([facility]) E11.65 250.00 TYPE 2 DIABETES MELLITUS A1C (BACK OFFICE) 790.29 COMPREHENSIVE METABOLIC PANEL SITagliptin (JANUVIA) 25 mg Tab COMPREHENSIVE METABOLIC PANEL 2. Essential hypertension, benign I10 401.1 BENIGN ESSENTIAL HYPERTENSION COMPREHENSIVE METABOLIC PANEL amLODIPine 10 MG tablet lisinopril 10 MG tablet COMPREHENSIVE METABOLIC PANEL 3. Mixed hyperlipidemia E78.2 272.2 MIXED HYPERLIPIDEMIA pravastatin 40 MG tablet 4. Gastroesophageal reflux disease without esophagitis K21.9 530.81 GASTROESOPHAGEAL REFLUX DISEASEWITHOUT ESOPHAGITIS omeprazole 40 MG capsule 5. KARRIE (obstructive sleep apnea) G47.33 327.23 OBSTRUCTIVE SLEEP APNEA SYNDROME 6. Primary hypertension I10 401.9 ESSENTIAL HYPERTENSION 7. Elevated liver enzymes R74.8 790.5 ELEVATED LIVER ENZYMES LEVEL 8. Gallbladder polyp K82.4 575.6 POLYP OF GALLBLADDER 1. Type 2 diabetes mellitus with hyperglycemia, without long-term current use of insulin ([facility]) - controlled with A1C of 5.7% - A1C (BACK OFFICE) - COMPREHENSIVE METABOLIC PANEL; Future - continue SITagliptin (JANUVIA) 25 mg Tab; Take 1 tablet (25 mg total) by mouth daily. Dispense: 30 tablet; Refill: 5 2. Essential hypertension, benign - controlled - [...] at least 30 min every day. - COMPREHENSIVE METABOLIC PANEL; Future - continue lisinopril 10 MG tablet; Take 1 tablet (10 mg total) by mouth daily. Dispense: 90 tablet; Refill: 1 - continue amLODIPine 10 MG tablet; Take 1 tablet (10 mg total) by mouth daily. Dispense: 90 tablet; Refill: 1 3. Mixed hyperlipidemia - tolerating medications with no concerns - continue pravastatin 40 MG tablet; Take 1 tablet (40 mg total) by mouth nightly at bedtime. Dispense: 90 tablet; Refill: 1 4. Gastroesophageal reflux disease without esophagitis - controlled - continue omeprazole 40 MG capsule; Take 1 capsule (40 mg total) by mouth daily. Dispense: 30 capsule; Refill: 4 5. KARRIE (obstructive sleep apnea) - order placed to [facility] - start using machine once you secure and follow up with pulmonary as planned in March - weight loss encouraged 6. Elevated liver enzymes - noted on blood work done in September 2021, previous labs stable - avoid alcohol and hepatotoxic medications - weight loss encouraged 7. Gallbladder polyp - will plan to follow up during his next visit - will need repeat follow up imaging and referral to surgery Counseling given: Yes Comment: counseled by Dr Rosenberg I spent 40 [...] the patient. Follow up office visit in 5 months. Requested MyChart or telephone follow up prn if symptoms change, worsen, or persist, or if side effect of treatment is experienced. KATARINAON: This dictation was at least in part performed using [facility] and there may be some inherent flaws in this manager support due to the nature of this program. Pankaj Rosenberg MD Internal Medicine [facility]. documented in this encounter Plan of Treatment Upcoming Encounters Date Type Department Care Team (Late st Contact Info) Description 05/15/2024 3:30 PM DECKHAND [place] [address] Pankaj Rosenberg MD [address] [place] [address] 05/25/2024 12:45 PM DECKHAND ENGINEER Office Visit [facility] Physical Therapy [address] [place] [address] Pankaj Rosenberg MD [facility] [address] [address] Maya Magaña, [place] [address] 05/30/2024 3:40 PM DECKHAND ENGINEER Office Visit [facility] Multispecialty Care - [place] [address] [address] [place] [address] Pankaj Rosenberg MD [address] [address] 06/20/2024 3:40 PM DECKHAND ENGINEER [facility] - [place] [address] [address] [place] [address] Pankaj Rosenberg MD [address] [address] 06/21/2024 1:00 PM DECKHAND ENGINEER Office Visit [facility] Orthopedic & Sports Medicine - [place] [address] [place] [address] Jose Ratliff MD 670 [facility] [address] [place] [address] 03/27/2025 1:00 PM DECKHAND ENGINEER Office Visit [facility] Multispecialty Care - [facility] 3 [facility], [address] [place] [phone] Bob Oneal MD 3 [facility] [place] [place] [address] documented as of this encounter Procedures Procedure Name Priority Date/Time Associated Diagnosis Comments COMPREHENSIVE METABOLIC PANEL Routine 11/18/2021 3:13 PM CDT Type 2 diabetes mellitus with hyperglycemia, without long-term current use of insulin ([facility] HHS/HCC) Essential hypertension, benign HEMOGLOBIN, GLYCOSYLATED Routine 11/18/2021 Type 2 diabetes mellitus with hyperglycemia, without long-term current use of insulin ([facility] HHS/HCC) documented in this encounter Results * (ABNORMAL) COMPREHENSIVE METABOLIC PANEL (11/18/2021 3:13 PM CDT) [facility] SODIUM S/P/B 137 136 - 145 MMOL/L 11/18/2021 8:13 PM CDT -[facility] POTASSIUM S/P/B 4.1 3.5 - 5.1 MMOL/L 11/18/2021 8:13 PM CDT [facility] CHLORIDE S/P/B 102 98 - 107 MMOL/L 11/18/2021 8:13 PM CDT [facility] CO2 28.1 21 - 32 MMOL/L 11/18/2021 8:13 PM CDT -[facility] GLUCOSE 150(H) 70 - 99 MG/DL 11/18/2021 8:13 PM CDT [facility] BUN 14 7 - 18 MG/DL 11/18/2021 8:13 PM CDT [facility] CREATININE S/P/B 0.84 0.70 - 1.30 MG/DL 11/18/2021 8:13 PM CDT [facility] CALCIUM S/P/B 9.4 8.4 - 10.5 MG/DL 11/18/2021 8:13 PM CDT -[facility] BILIRUBIN TOTAL S/P/B 0.7 0.2 - 1.0 MG/DL 11/18/2021 8:13 PM CDT [facility] ALKALINE PHOSPHATASE S/P/B 119(H) 45 - 115 U/L 11/18/2021 8:13 PM CDT [facility] AST 15 15 - 37 U/L 11/18/2021 8:13 PM CDT [facility] ALT 56 16 - 63 U/L 11/18/2021 8:13 PM CDT [facility] TOTAL PROTEIN S/P/B 7.9 6.4 - 8.2 G/DL 11/18/2021 8:13 PM CDT [facility] ALBUM[facility] S/P/B 4.0 3.4 - 5.0 G/DL 11/18/2021 8:13 PM CDT [facility] [place] ANION GAP 6.9 5 - 15 MMOL/L 11/18/2021 8:13 PM CDT [facility] [place] Comment:REFERENCE RANGE NOT ESTABLISHED OSMOLALITY (CALC) 287 MOSM/KG 022 8:13 PM CDT [facility] [place] Comment:REFERENCE RANGE NOT ESTABLISHED GFR ESTIMATE >90 >90 ML/MIN/1. 73 M2 11/18/2021 8:13 PM CDT [facility] GFR NOTES GFR REFERENCE S: 11/18/2021 8:13 PM CDT [facility] [place] Comment: THE ESTIMATED GFR IS CALCULATED USING [...] ml/min/1.73 m2 G5,KIDNEY FAILURE: <15 ml/min/1.73 m2 11/18/2021 3:13 PM CDT us Pankaj Rosenberg MD LABORATORY Final Result [facility] [place] [address] [place] [address], * A1C (BACK OFFICE) (11/18/2021) HGB A1C 5.7 % [address], [place] 11/18/2021 Pankaj Rosenberg MD LABORATORY Final Result [address], [address] [place] [address], documented in this encounter Visit Diagnoses Diagnosis Type 2 diabetes mellitus with hyperglycemia, without long-term current use of insulin ([facility])- Primary Essential hypertension, benign Mixed hyperlipidemia Gastroesophageal reflux disease without esophagitis Esophageal reflux KARRIE (obstructive sleep apnea) Obstructive sleep apnea (adult) (pediatric) Primary hypertension Unspecified essential hypertension Elevated liver enzymes Nonspecific elevation of levels of transaminase or lactic acid dehydrogenase (LDH) Gallbladder polyp Cholesterolosis of gallbladder documented in this encounter Additional Health Concerns Assessment Noted Time PHQ-9 Depression Total Score: 0 08/01/19 22 2:12 PM CDT documented as of this encounter Care Teams Shading Painter Relationship Specialty Start Date End Date Pankaj Rosenberg MD 1188 [facility] [address] [place] [address] PCP - General INTERNAL MEDICINE 06/15/21 documented as of this encounter
--- OUTSIDE RECORDS SUMMARY | 2024-05-13 10:52 | XMS_ITS | Encounter Summary ---
Author Organization [facility] Address [address] [place] [address]. [place], [place] [address] [place] [address] Care Team Providers Care Cable Weaver Name Role Phone Pankaj Rosenberg MD Primary Care Provider [phone] Encounter Details Date Type Department Care Team (Latest Contact Info) Description 09/28/2021 Travel Social History Tobacco Use Types Packs/Day [...] on file Legal Sex Male 2:58 PM WOODEN TANK ERECTOR Gender Identity Male 07/13/2021 5:19 AM WOODEN TANK ERECTOR Sexual Orientation Straight 07/13/2021 5: 19 AM WOODEN TANK ERECTOR COVID-19 Exposure Response Date Recorded In the last 10 days, have yo u been in contact with someone who was confirmed or suspected to have Coronavirus/COVID-19? No / Unsure 09/28/2021 1:40 PM CDT documented as of this encounter Plan of Treatment Upcoming Encounters Date Type Department Care Team (Late st Contact Info) Description 05/15/2024 3:30 PM WOODEN TANK ERECTOR Appointment [facility] [place], [place] [address] Pankaj Rosenberg MD [address] [address] 05/25/2024 12:45 PM WOODEN TANK ERECTOR Office Visit [facility] Physical Therapy [facility] [address] [place] [address] Pankaj Rosenberg MD 1188 [facility] [address] [place] [address] Maya Magaña, [place] [address] 05/30/2024 3:40 PM WOODEN TANK ERECTOR Office Visit [facility] Medical [facility] Multispecialty [facility] Emergency Department - [place] [address] [facility] [address] [place] [address] Pankaj Rosenberg MD [address] [address] 06/20/2024 3:40 PM WOODEN TANK ERECTOR Telemedicine [facility] Emergency Department - [address] [place] [address] Pankaj Rosenberg MD [address] [address] 06/21/2024 1:00 PM WOODEN TANK ERECTOR Office Visit [facility] Medical Group Orthopedic & Sports Medicine - [place] [address] [place] [address] Jose Ratliff MD [address] [address] [place] [address] 03/27/2025 1:00 PM WOODEN TANK ERECTOR Office Visit [facility] Medical [facility] Multispecialty Care - [facility] 3 [facility], [address] [place] [phone] Bob Oneal MD [address] [place] [address] documented as of this encounter Visit Diagnoses Not on filedocumented in this encounter Additional Health Concerns Assessment Noted Time PHQ-9 Depression Total Score: 0 08/01/19 22 2:12 PM CDT documented as of this encounter Care Teams Cable Weaver Relationship Specialty Start Date End Date Pankaj Rosenberg MD [address] [address] PCP - General INTERNAL MEDICINE 06/15/21 documented as of this encounter
--- OUTSIDE RECORDS SUMMARY | 2024-05-13 10:52 | XMS_ITS | Encounter Summary ---
Author Organization [facility] Address [address] [place] [address]. [place], [place] [address] [place] [address] Care Team Providers Care Procurement Cost Coordinator Name Role Phone Pankaj Rosenberg MD Primary Care Provider [phone] Encounter Details Date Type Department Care Team (Latest Contact Info) Description 08/17/2021 Safehist Message Enc [facility] Medical Group Multispecialty Care - [place] [address] [address] [place] [address] [place] [address] [place] [address] 157 [place], [place] [id number] Ear nose and throat appointment Social History Tobacco Use Types Packs/Day Years Used Date Smoking Tobacco: Never Smokeless Tobacco: Former Snuff Quit: 08/14/2020 Comments:counseled by Dr Sammie gallardo Alcohol Use Standard Drinks/Week Comments Yes 5 (1 standard drink = 0.6 oz pur e alcohol) PHQ-2 Answer Date Recorded PHQ-2 Score - If the patient scores above 3, please move on to questions 3-9 0 07/31/2021 Sex and Gender Information Value Date Recorded Sex Assigned at Not on file Legal Sex Male 2:58 PM MANAGER ENGLISH Gender Identity Male 07/13/2021 5:19 AM MANAGER ENGLISH Sexual Orientation Straight 07/13/2021 5: 19 AM MANAGER ENGLISH COVID-19 Exposure Response Date Recorded In the last 10 days, have yo u been in contact with someone who was confirmed or suspected to have Coronavirus/COVID-19? No / Unsure 08/18/2021 9:51 AM CDT documented as of this encounter Plan of Treatment Upcoming Encounters Date Type Department Care Team (Late st Contact Info) Description 05/15/2024 3:30 PM MANAGER ENGLISH Appointment [facility] [place] [address] Pankaj Rosenberg MD [address] [address] 05/25/2024 12:45 PM MANAGER ENGLISH Office Visit [facility] Physical Therapy [address] [place] [address] Pankaj Rosenberg MD [facility] [address] [address] Maya Magaña, [place] [address] 05/30/2024 3:40 PM MANAGER ENGLISH Office Visit [facility] Medical [facility] Multispecialty Care - [address] [address] Pankaj Rosenberg MD [address] [address] 06/20/2024 3:40 PM MANAGER ENGLISH Telemedicine [facility] Medical [facility] Multispecialty Care - [address] [address] Pankaj Rosenberg MD [address] [address] 06/21/2024 1:00 PM MANAGER ENGLISH Office Visit [facility] Medical Group Orthopedic & Sports Medicine - [place] [address] [place], [place] [address] Jose Ratliff MD [address] [address] 03/27/2025 1:00 PM MANAGER ENGLISH Office Visit [facility] Medical Group Multispecialty Care - [facility] 3 [facility] [address] [place] [address] Bob Oneal MD 3 [facility] [address] [place] [address] documented as of this encounter Visit Diagnoses Not on filedocumented in this encounter Additional Health Concerns Assessment Noted Time PHQ-9 Depression Total Score: 0 08/01/19 22 2:12 PM CDT documented as of this encounter Care Teams Procurement Cost Coordinator Relationship Specialty Start Date End Date Pankaj Rosenberg MD 1188 [facility] [address] [place] [address] PCP - General INTERNAL MEDICINE 06/15/21 documented as of this encounter
--- OUTSIDE RECORDS SUMMARY | 2024-05-13 10:52 | XMS_ITS | Encounter Summary ---
Author Organization [facility] Address [address] [place] [address]. [place], [place] [address] [place] [address] Care Team Providers Care Cafeteria Aide Name Role Phone Pankaj Rosenberg MD Primary Care Provider [phone] Encounter Details Date Type Department Care Team (Latest Contact Info) Description 08/17/2021 Scan HEALTH INFO SRVCS Scanned, Documents Social [...] on file Legal Sex Male 2:58 PM SOCIAL WORK THERAPIST Gender Identity Male 07/13/2021 5:19 AM SOCIAL WORK THERAPIST Sexual Orientation Straight 07/13/2021 5: 19 AM SOCIAL WORK THERAPIST COVID-19 Exposure Response Date Recorded In the last 10 days, have yo u been in contact with someone who was confirmed or suspected to have Coronavirus/COVID-19? No / Unsure 08/21/2021 2:04 PM CDT documented as of this encounter Plan of Treatment Upcoming Encounters Date Type Department Care Team (Late st Contact Info) Description 05/15/2024 3:30 PM SOCIAL WORK THERAPIST Appointment [facility] [address] Pankaj Rosenberg MD [address] [address] 05/25/2024 12:45 PM SOCIAL WORK THERAPIST Office Visit [facility] Physical Therapy [facility] [address] Pankaj Rosenberg MD [address] [address] Maya Magaña, [place] [address] 05/30/2024 3:40 PM SOCIAL WORK THERAPIST Office Visit [facility] Medical [facility] Multispecialty Care - [place] [address] [address] [place] [address] Pankaj Rosenberg MD [address] [address] 06/20/2024 3:40 PM SOCIAL WORK THERAPIST Telemedicine [facility] - [place] [address] [address] [place] [address] Pankaj Rosenberg MD [address] [address] 06/21/2024 1:00 PM SOCIAL WORK THERAPIST Office Visit [facility] Medical Group Orthopedic & Sports Medicine - [place] [address] [place] [address] Jose Ratliff MD [address] [address] [place] [address] 03/27/2025 1:00 PM SOCIAL WORK THERAPIST Office Visit [facility] Medical Group Multispecialty Care - [facility] 3 [facility], [address] [place] [address] Bob Oneal MD 3 [facility] [address] [place] [address] documented as of this encounter Visit Diagnoses Not on filedocumented in this encounter Additional Health Concerns Assessment Noted Time PHQ-9 Depression Total Score: 0 08/01/19 22 2:12 PM CDT documented as of this encounter Care Teams Cafeteria Aide Relationship Specialty Start Date End Date Pankaj Rosenberg MD 1188 [facility] 157 [place] [address] PCP - General INTERNAL MEDICINE 06/15/21 documented as of this encounter
--- OUTSIDE RECORDS SUMMARY | 2024-05-13 10:52 | XMS_ITS | Encounter Summary ---
Author Organization [facility] Address [address] [place] [address]. [place], [place] [address] [place] [address] Care Team Providers Care Catering Barista Name Role Phone Pankaj Rosenberg MD Primary Care Provider [phone] Encounter Details Date Type Department Care Team (Latest Contact Info) Description 08/21/2021 Travel Social History Tobacco Use Types Packs/Day [...] on file Legal Sex Male 2:58 PM HOSIERY LOOPER Gender Identity Male 07/13/2021 5:19 AM HOSIERY LOOPER Sexual Orientation Straight 07/13/2021 5: 19 AM HOSIERY LOOPER COVID-19 Exposure Response Date Recorded In the last 10 days, have yo u been in contact with someone who was confirmed or suspected to have Coronavirus/COVID-19? No / Unsure 08/21/2021 2:04 PM CDT documented as of this encounter Plan of Treatment Upcoming Encounters Date Type Department Care Team (Late st Contact Info) Description 05/15/2024 3:30 PM HOSIERY LOOPER Appointment [facility] [place], [place] [address] Pankaj Rosenberg MD [address] [address] 05/25/2024 12:45 PM HOSIERY LOOPER Office Visit [facility] Physical Therapy [facility] 157 [place] [address] Pankaj Rosenberg MD 1188 [facility] 157 [place] [address] Maya Magaña, [place] [address] 05/30/2024 3:40 PM HOSIERY LOOPER Office Visit [facility] Medical [facility] Multispecialty [facility] - [place] [address] [facility] [address] [place] [address] Pankaj Rosenberg MD [address] [address] 06/20/2024 3:40 PM HOSIERY LOOPER Telemedicine [facility] - [address] [place] [address] Pankaj Rosenberg MD [address] [address] 06/21/2024 1:00 PM HOSIERY LOOPER Office Visit [facility] Medical Group Orthopedic & Sports Medicine - [place] [address] [place] [address] Jose Ratliff MD [address] [address] [place] [address] 03/27/2025 1:00 PM HOSIERY LOOPER Office Visit [facility] Medical [facility] Multispecialty Care - [facility] 3 [facility], [address] [place] [phone] Bob Oneal MD [address] [place] [address] documented as of this encounter Visit Diagnoses Not on filedocumented in this encounter Additional Health Concerns Assessment Noted Time PHQ-9 Depression Total Score: 0 08/01/19 22 2:12 PM CDT documented as of this encounter Care Teams Catering Barista Relationship Specialty Start Date End Date Pankaj Rosenberg MD [address] [address] PCP - General INTERNAL MEDICINE 06/15/21 documented as of this encounter
--- OUTSIDE RECORDS SUMMARY | 2024-05-13 10:52 | XMS_ITS | Encounter Summary ---
Author Organization [facility] Address [address] [place] [address]. [place] [address] [place] [address] Care Team Providers Care Supervisor Seaming Name Role Phone Pankaj Rosenberg MD Primary Care Provider [phone] Encounter Details Date Type Department Care Team (Late st Contact Info) Description 08/18/2021 Prep for Procedure [facility] [address] [place] [address] Mario Oneal MD [address] [place] [id number] Social History Tobacco Use Types Packs/Day Years [...] on file Legal Sex Male 2:58 PM FIBER DESIGNER Gender Identity Male 07/13/2021 5:19 AM FIBER DESIGNER Sexual Orientation Straight 07/13/2021 5: 19 AM FIBER DESIGNER COVID-19 Exposure Response Date Recorded In the last 10 days, have yo u been in contact with someone who was confirmed or suspected to have Coronavirus/COVID-19? No / Unsure 08/21/2021 2:04 PM CDT documented as of this encounter Plan of Treatment Upcoming Encounters Date Type Department Care Team (Late st Contact Info) Description 05/15/2024 3:30 PM FIBER DESIGNER Appointment [facility] [place] [address] Pankaj Rosenberg MD [address] [address] 05/25/2024 12:45 PM FIBER DESIGNER Office [facility] Physical Therapy [address] [place] [address] Pankaj Rosenberg MD [facility] [address] [address] Maya Magaña, [place] [address] 05/30/2024 3:40 PM FIBER DESIGNER Office Visit [facility] Medical [facility] Multispecialty Care - [place] [address] [place] [address] Pankaj Rosenberg MD [facility] [address] [address] 06/20/2024 3:40 PM FIBER DESIGNER Telemedicine [facility] Medical [facility] Multispecialty Care - [place] [address] [address] [place] [address] Pankaj Rosenberg MD [facility] [address] [address] 06/21/2024 1:00 PM FIBER DESIGNER Office Visit [facility] Medical Group Orthopedic & Sports Medicine - [place] [address] [place], [place] [address] Jose Ratliff MD [address] [address] [place] [address] 03/27/2025 1:00 PM FIBER DESIGNER Office Visit [facility] Medical Group Mult[facility]ialty Care [facility] [address] [place] [address] Mario Oneal MD [address] [place] [address] documented as of this encounter Results * ECG 12-Lead (08/18/2021 11:17 AM CDT) 08/18/2021 11:1 7 AM CDT Narrative [facility] RAD - 08/20/2021 9:01 PM CDT ?[facility] ? Test Date: ?2021-08-18 Pat Name: ? CHUCK AUD ? Department: ?? 85 ? Room: ? Gender: ? Male ? Pumping Station Engineer: ?? : ?1995 ? Requested By: MARIO ONEAL Order Number: [id number] ? Reading : ?? oLgan Rutledge ? Measurements Intervals ?[place] ? Rate: ? 78 ? P: ?29 MS: ? 148 ?QRS: ?53 QRSD: ? 98 ? T: ?39 QT: ? 379 ? QTc: ?434 ? Interpretive Statements SINUS RHYTHM No previous ECG available for comparison Procedure Note Logan Rutledge MD - 08/20/2021 [facility] Test Date: 2021-08-18 Pat Name: CHUCK BARLOW Department: 85 Room: Gender: Male Pumping Station Engineer: : 1995 Requested By: MARIO ONEAL Order Number: [id number] Reading MD: Logan Rutledge Measurements Intervals [place] Rate: 78 P: 29 MS: 148 QRS: 53 QRSD: 98 T: 39 QT: 379 QTc: 434 Interpretive Statements SINUS RHYTHM No previous ECG available for comparison us Mario Oneal MD ECG ORDERABLES Final Result Performing Organization Address City/State/[facility] Co de Phone Number [facility] documented in this encounter Visit Diagnoses Diagnosis Pre-op testing- Primary Preoperative examination, unspecified Pre-op testing Preoperative examination, unspecified documented in this encounter Additional Health Concerns Assessment Noted Time PHQ-9 Depression Total Score: 0 08/01/19 22 2:12 PM CDT documented as of this encounter Care Teams Supervisor Seaming Relationship Specialty Start Date End Date Pankaj Rosenberg MD 1188 [facility] [address] [place] [address] PCP - General INTERNAL MEDICINE 06/15/21 documented as of this encounter
--- OUTSIDE RECORDS SUMMARY | 2024-05-13 10:52 | XMS_ITS | Encounter Summary ---
Author Organization [facility] Address [address] [place] [address]. [place], [place] [address] [place] [address] Care Team Providers Care Systems Analysis Manager Name Role Phone Pankaj Rosenberg MD Primary Care Provider [phone] Reason for Visit * Reason Onset Date Comments Reschedule 11/09/2021 Encounter Details Date Type Department Care Team (Late st Contact Info) Description 11/09/2021 Telephone [facility] Medical Group Multispecialty Care - [place] [address] [address] [place], [place] [address] Pankaj Rosenberg MD [address] [place] [address] 157 [place] [address] Reschedule Social History Tobacco Use Types Packs/Day [...] file Legal Sex Male 2:58 PM MANAGER PHP Gender Identity Male 07/13/2021 5:19 AM MANAGER PHP Sexual Orientation Straight 07/13/2021 5: 19 AM MANAGER PHP documented as of this encounter Progress Notes * Roberto Moffett - 11/09/2021 10:10 AM CDT Patient called and rescheduled appointment for 11/18/21 @ 2:30pm. documented in this encounter Plan of Treatment Upcoming Encounters Date Type Department Care Team (Late st Contact Info) Description 05/15/2024 3:30 PM MANAGER PHP Appointment [facility] [place] [address] Pankaj Rosenberg MD [address] [place] [address] 05/25/2024 12:45 PM MANAGER PHP Office Visit [facility] Physical Therapy [address] [place] [address] Pankaj Rosenberg MD [address] [place] [address] Maya Magaña, [place] [address] 05/30/2024 3:40 PM MANAGER PHP Office Visit [facility] Medical [facility] Multispecialty Care - [address] [address] Pankaj Rosenberg MD [facility] [address] 06/20/2024 3:40 PM MANAGER PHP Telemedicine [facility] Multispecialty Care - [place] [address] [address] [place] [address] Pankaj Rosenberg MD [facility]8 [address] [address] 06/21/2024 1:00 PM MANAGER PHP Office Visit [facility] Medical Group Orthopedic & Sports Medicine - [address] [address] Jose Ratliff MD [address] [address] [place] [address] 03/27/2025 1:00 PM MANAGER PHP Office Visit [facility] Medical Group Multispecialty Care - [facility] 3 [facility] [address] [place] [address] Bob Oneal MD [address] [facility] [address] [place] [address] documented as of this encounter Visit Diagnoses Not on filedocumented in this encounter Additional Health Concerns Assessment Noted Time PHQ-9 Depression Total Score: 0 08/01/19 22 2:12 PM CDT documented as of this encounter Care Teams Systems Analysis Manager Relationship Specialty Start Date End Date Pankaj Rosenberg MD [address] [address] PCP - General INTERNAL MEDICINE 06/15/21 documented as of this encounter
--- OUTSIDE RECORDS SUMMARY | 2024-05-13 10:52 | XMS_ITS | Encounter Summary ---
Author Organization [facility] Address [address] [place] [address]. [place], [place] [address] [place] [address] Care Team Providers Care Eyelet Machine Operator Name Role Phone Pankaj Rosenberg MD Primary Care Provider [phone] Reason for Visit * Reason Onset Date Comments Follow Up Call 09/24/2021 Encounter Details Date Type Department Care Team (Late st Contact Info) Description 09/24/2021 Telephone [facility] Medical Group Multispecialty Care - [place] [address] [address] [place], [place] [address] Pankaj Rosenberg MD [address] [place] [address] 157 [place] [address] Follow Up Call Social History [...] on file Legal Sex Male 2:58 PM AGRICULTURAL COMMODITIES INSPECTOR Gender Identity Male 07/13/2021 5:19 AM AGRICULTURAL COMMODITIES INSPECTOR Sexual Orientation Straight 07/13/2021 5: 19 AM AGRICULTURAL COMMODITIES INSPECTOR COVID-19 Exposure Response Date Recorded In the last 10 days, have yo u been in contact with someone who was confirmed or suspected to have Coronavirus/COVID-19? No / Unsure 08/26/2021 6:53 AM CDT documented as of this encounter Progress Notes * Pankaj Rosenberg MD - 09/24/2021 5:23 PM CDT I called patient. He is gradually advancing diet but has little appetite. Has not started any of his blood pressure medication or Januvia. No fever or chills. He tells me his wound is healing nicely. He has upcoming appointment with surgery in the next few weeks. I did make him check his home blood pressure and currently averaging around 140/90. For now, patient will hold off taking his lisinopril. He will start taking his amlodipine starting tomorrow if blood pressures greater than 140/90. He will hold off starting his Januvia given poor appetite at this time. Will discuss his lisinopril and Januvia during his upcoming visit with me on 09/28/2021. Patient verbalized understanding and grateful for the call. All questions answered. Pankaj Rosenberg MD Internal Medicine [facility] Medical [facility]. documented in this encounter Plan of Treatment Upcoming Encounters Date Type Department Care Team (Late st Contact Info) Description 05/15/2024 3:30 PM AGRICULTURAL COMMODITIES [place] [address] Pankaj Rosenberg MD [address] [place] [address] 05/25/2024 12:45 PM AGRICULTURAL COMMODITIES INSPECTOR Office Visit [facility] Physical Therapy [address] [place] [address] Pankaj Rosenberg MD [facility]8 [address] [address] Maya Magaña, [place] [address] 05/30/2024 3:40 PM AGRICULTURAL COMMODITIES INSPECTOR Office Visit [facility] Multispecialty Care - [address] [place] [address] Pankaj Rosenberg MD [address] [address] 06/20/2024 3:40 PM AGRICULTURAL COMMODITIES INSPECTOR [facility] - [place] [address] [address] [place] [address] Pankaj Rosenberg MD [address] [address] 06/21/2024 1:00 PM AGRICULTURAL COMMODITIES INSPECTOR Office Visit [facility] Orthopedic & Sports Medicine - [place] [address] [place] [address] Jose Ratliff MD 670 [facility] [address] [place] [address] 03/27/2025 1:00 PM AGRICULTURAL COMMODITIES INSPECTOR Office Visit [facility] Multispecialty [facility] - [facility] 3 [facility], [address] [place] [address] Bob Oneal MD 3 [facility] [address] [place] [address] documented as of this encounter Visit Diagnoses Not on filedocumented in this encounter Additional Health Concerns Assessment Noted Time PHQ-9 Depression Total Score: 0 08/01/19 22 2:12 PM CDT documented as of this encounter Care Teams Eyelet Machine Operator Relationship Specialty Start Date End Date Pankaj Rosenberg MD [address] [place] [address] PCP - General INTERNAL MEDICINE 06/15/21 documented as of this encounter
--- OUTSIDE RECORDS SUMMARY | 2024-05-13 10:53 | XMS_ITS | Encounter Summary ---
Author Organization [facility] Address [address] [place] [address]. 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 No / Unsure 08/06/2021 1:59 PM CDT documented as of this encounter Plan of Treatment Upcoming Encounters Date Type Department Care Team (Late st Contact Info) Description 05/15/2024 3:30 PM HOUSEKEEPER CAREGIVER Appointment [place] [place], [place] [address] Pankaj Rosenberg MD [address] [address] 05/25/2024 12:45 PM HOUSEKEEPER CAREGIVER Office Visit [facility] Physical Therapy [facility]8 [address] [address] Pankaj Rosenberg MD [address] [address] Maya Magaña, [place] [address] 05/30/2024 3:40 PM HOUSEKEEPER CAREGIVER [facility] - [place] [address] [address] [place] [address] Pankaj Rosenberg MD [address] [address] 06/20/2024 3:40 PM HOUSEKEEPER CAREGIVER [facility]icine [facility] - [place] [address] [address] [place] [address] Pankaj Rosenberg MD [address] [address] 06/21/2024 1:00 PM HOUSEKEEPER CAREGIVER Office Visit [facility] Medical Group Orthopedic & Sports Medicine - [place] [address] [place] [address] Jose Ratliff MD [address] [address] [place] [address] 03/27/2025 1:00 PM HOUSEKEEPER CAREGIVER Office Visit [facility] Medical [facility] Multispecialty Care - [facility] 3 [facility] [address] [place] [phone] Bob Oneal MD [address] [place] [address] documented as of this encounter Visit Diagnoses Not on filedocumented in this encounter Additional Health Concerns Assessment Noted Time PHQ-9 Depression Total Score: 0 08/01/19 2:12 PM CDT documented as of this encounter Care Teams Planning Consultant Relationship Specialty Start Date End Date Pankaj Rosenberg MD [address] [address] PCP - General INTERNAL MEDICINE 06/15/21 documented as of this encounter
--- OUTSIDE RECORDS SUMMARY | 2024-05-13 10:54 | XMS_ITS | Encounter Summary ---
Author Organization [facility] Address [address] [place] [address]. [place], [place] [address] [place] [address] Care Team Providers Care Sales Training Manager Name Role Phone Pankaj Rosenberg MD Primary Care Provider [phone] Reason for Visit * Reason Onset Date Comments Medication 08/04/2021 Encounter Details Date Type Department Care Team (Late st Contact Info) Description 08/04/2021 Telephone [facility] Multispecialty Care - [place] [address] [address] [place] [address] Pankaj Rosenberg MD [address] [place] [address] 157 [place] [address] Medication Social History Tobacco Use [...] Legal Sex Male 2:58 PM HEAD OF DRAMA Gender Identity Male 07/13/2021 5:19 AM HEAD OF DRAMA Sexual Orientation Straight 07/13/2021 5: 19 AM HEAD OF DRAMA COVID-19 Exposure Response Date Recorded In the last 10 days, have yo u been in contact with someone who was confirmed or suspected to have Coronavirus/COVID-19? No / Unsure 07/31/2021 1:58 PM CDT documented as of this encounter Progress Notes * Pankaj Rosenberg MD - 08/04/2021 9:43 AM CDT Patient not tolerating glipizide due to GI side effects - diarrhea. Change to Farxiga. Pankaj Rosenberg MD Internal Medicine [facility]. documented in this encounter Plan of Treatment Upcoming Encounters Date Type Department Care Team (Late st Contact Info) Description 05/15/2024 3:30 PM HEAD OF DRAMA Appointment [facility] [place] [address] Pankaj Rosenberg MD [address] [place] [address] 05/25/2024 12:45 PM HEAD OF DRAMA Office Visit [facility] Physical Therapy [address] [place] [address] Pankaj Rosenberg MD [address] [address] Maya Magaña, [place] [address] 05/30/2024 3:40 PM HEAD OF DRAMA [facility] - [place] [address] [place] [address] [place] [address] [place] [address] 06/20/2024 3:40 PM HEAD OF DRAMA [facility] [place] [address] [address] [place] [address] Pankaj Rosenberg MD 1188 [facility] 157 [place] [address] 06/21/2024 1:00 PM HEAD OF DRAMA Office Visit [facility] Orthopedic & Sports Medicine - [place] [address] [place] [address] Jose Ratliff MD [address] [address] [place] [address] 03/27/2025 1:00 PM HEAD OF DRAMA Office Visit [facility] Multispecialty Care - [facility] 3 [facility] [address] [place] [address] Bob Oneal MD 3 [facility] [address] [place] [address] documented as of this encounter Visit Diagnoses Diagnosis Type 2 diabetes mellitus with hyperglycemia, without long-term current use of insulin ([facility] Primary documented in this encounter Additional Health Concerns Assessment Noted Time PHQ-9 Depression Total Score: 0 08/01/19 22 2:12 PM CDT documented as of this encounter Care Teams Sales Training Manager Relationship Specialty Start Date End Date Pankaj Rosenberg MD [address] [address] PCP - General INTERNAL MEDICINE 06/15/21 documented as of this encounter
--- OUTSIDE RECORDS SUMMARY | 2024-05-13 10:54 | XMS_ITS | Encounter Summary ---
Author Organization [facility] Address [address] [place] [address]. [place], [place] [address] [place] [address] Care Team Providers Care Agricultural Plow Operator Name Role Phone Pankaj Rosenberg MD Primary Care Provider [phone] Encounter Details Date Type Department Care Team (Latest Contact Info) Description 08/05/2021 CHEQROOMt Message Enc [facility] Multispecialty Care - [place] [address] [address] [place] [address] Pankaj Rosenberg MD [address] [place] [address] 157 [place], [place] [id number] diabetes medication Social History Tobacco Use Types Packs/Day Years [...] file Legal Sex Male 2:58 PM SPORTS THERAPIST Gender Identity Male 07/13/2021 5:19 AM SPORTS THERAPIST Sexual Orientation Straight 07/13/2021 5: 19 AM SPORTS THERAPIST COVID-19 Exposure Response Date Recorded In the last 10 days, have yo u been in contact with someone who was confirmed or suspected to have Coronavirus/COVID-19? No / Unsure 08/06/2021 1:59 PM CDT documented as of this encounter Plan of Treatment Upcoming Encounters Date Type Department Care Team (Late st Contact Info) Description 05/15/2024 3:30 PM SPORTS THERAPIST Appointment [facility] [place] [address] Pankaj Rosenberg MD [address] [address] 05/25/2024 12:45 PM SPORTS THERAPIST Office Visit [facility] Physical Therapy [address] [place] [address] Pankja Rosenberg MD [facility] [address] [address] Maya Magaña, [place] [address] 05/30/2024 3:40 PM SPORTS THERAPIST Office Visit [facility] Medical [facility] Multispecialty Care - [address] [address] Pankaj Rosenberg MD [facility] [address] [address] 06/20/2024 3:40 PM SPORTS THERAPIST Telemedicine [facility] Medical [facility] Multispecialty Care - [place] [address] [address] [place] [address] Pankaj Rosenberg MD [facility] [address] [address] 06/21/2024 1:00 PM SPORTS THERAPIST Office Visit [facility] Group Orthopedic & Sports Medicine - [place] [address] [place] [address] Jose Ratliff MD [address] [address] [place] [address] 03/27/2025 1:00 PM SPORTS THERAPIST Office Visit [facility] Group Multispecialty Care - [facility] 3 [facility] [address] [place] [address] Bob Oneal MD 3 [facility] [address] [place] [address] documented as of this encounter Visit Diagnoses Not on filedocumented in this encounter Additional Health Concerns Assessment Noted Time PHQ-9 Depression Total Score: 0 08/01/19 22 2:12 PM CDT documented as of this encounter Care Teams Agricultural Plow Operator Relationship Specialty Start Date End Date Pankaj Rosenberg MD 1188 [facility] [address] [place] [address] PCP - General INTERNAL MEDICINE 06/15/21 documented as of this encounter
--- OUTSIDE RECORDS SUMMARY | 2024-05-13 10:54 | XMS_ITS | Encounter Summary ---
Author Organization [facility] Address [address] [place] [address]. [place] [address] [place] [address] Care Team Providers Care Jacquard Loom Fixer Name Role Phone Pankaj Rosenberg MD Primary Care Provider [phone] Reason for Referral * Surgical (Routine) - Closed Specialty Diagnoses / Procedures Referred By Contac t Referred To Contact Diagnoses Nausea and vomiting, unspecified vomiting type Change in bowel function Epigastric burning sensation Procedures Case request operating room: EGD, COLONOSCOPY DIAGNOSTIC WITH/WITHOUT SPECIMEN BRUSH/WASH Bob Oneal MD 3 [facility] [address] [place] [address] Phone: tel: fax: Referral ID Status Reason Start Date Expiration Date Visits Re quested Visits Authorized [id number] Closed 08/03/2021 09/03/2022 1 1 Encounter Details Date Type Department Care Team (Late st Contact Info) Description 08/03/2021 Orders Only [facility] Multispecialty Care - [facility] 3 [facility] [address] [place] [address] Bob Oneal MD 3 [facility] [address] [place], [place] [id number] Social History Tobacco Use Types Packs/Day Years [...] file Legal Sex Male 2:58 PM PATIENT SERVICES REP Gender Identity Male 07/13/2021 5:19 AM PATIENT SERVICES REP Sexual Orientation Straight 07/13/2021 5: 19 AM PATIENT SERVICES REP COVID-19 Exposure Response Date Recorded In the last 10 days, have yo u been in contact with someone who was confirmed or suspected to have Coronavirus/COVID-19? No / Unsure 08/06/2021 1:59 PM CDT documented as of this encounter Plan of Treatment Upcoming Encounters Date Type Department Care Team (Late st Contact Info) Description 05/15/2024 3:30 PM PATIENT SERVICES REP Appointment [facility] [place] [place] [address] Pankaj Rosenberg MD [address] [place] [phone] 05/25/2024 12:45 PM PATIENT SERVICES REP Office Visit [facility] Physical Therapy [address] [place] [phone] Pankaj Rosenberg MD [address] [place] [address] Maya Magaña, [place] [address] 05/30/2024 3:40 PM PATIENT SERVICES REP Office Visit [facility] Medical Group Multispecialty Care - [place] [address] [address] [place] [address] Pankaj Rosenberg MD [address] [place] [address] 06/20/2024 3:40 PM PATIENT SERVICES REP Telemedicine [facility] Multispecialty [facility] - [place] [address] [address] [place] [address] Pankaj Rosenberg MD [address] [address] 06/21/2024 1:00 PM PATIENT SERVICES REP Office Visit [facility] Orthopedic & Sports Medicine - [place] [address] [place] [address] Jose Ratliff MD 670 [facility] [place] [address] [place] [address] 03/27/2025 1:00 PM PATIENT SERVICES REP [facility] [facility] 3 [facility], [address] [place] [address] Bob Oneal MD 3 [facility] [address] [place] [address] Scheduled Orders Name Type Priority Associated Diagnoses Orde r Schedule Case request operating room: EGD, COLONOSCOPY DIAGNOSTIC WITH/WITHOUT SPECIMEN BRUSH/WASH Case Request Routine Nausea and vomiting, unspecified vomiting type Change in bowel function Epigastric burning sensation Ordered: 08/03/2021 documented as of this encounter Visit Diagnoses Diagnosis Nausea and vomiting, unspecified vomiting type- Primary Change in bowel function Other symptoms involving digestive system Epigastric burning sensation Abdominal pain, epigastric documented in this encounter Additional Health Concerns Assessment Noted Time PHQ-9 Depression Total Score: 0 08/01/19 22 2:12 PM CDT documented as of this encounter Care Teams Jacquard Loom Fixer Relationship Specialty Start Date End Date Pankaj Rosenberg MD [address] [address] PCP - General INTERNAL MEDICINE 06/15/21 documented as of this encounter
--- OUTSIDE RECORDS SUMMARY | 2024-05-13 10:54 | XMS_ITS | Encounter Summary ---
Author Organization [facility] Address [address] [place] [address]. [place], [place] [address] [place] [address] Care Team Providers Care Aws Solution Architect Name Role Phone Pankaj Rosenberg MD Primary Care Provider [phone] Reason for Visit * Sleep Lab (Routine) - Closed Specialty Diagnoses / Procedures Referred By Contac t Referred To Contact Diagnoses Chronic fatigue Suspected sleep apnea Procedures Limited Channel Unattended (Home Study) (G0399) Pankaj Rosenberg MD [address] [address] Phone: tel: fax: Referral ID Status Reason Start Date Expiration Date Visits Re quested Visits Authorized [id number] Closed 06/15/2021 07/16/2022 1 1 Encounter Details Date Type Department Care Team (Latest Contact Info) Description 08/06/2021 2:00 PM CDT - 08/06/2021 11:59 PM CDT Hospital Encounter [facility] Sleep Lab [address] [place] [address] Pankaj Rosenberg MD [address] [address] Discharge Disposition: Home or Self [...] on file Legal Sex Male 2:58 PM TOUR ESCORT Gender Identity Male 07/13/2021 5:19 AM TOUR ESCORT Sexual Orientation Straight 07/13/2021 5: 19 AM TOUR ESCORT COVID-19 Exposure Response Date Recorded In the last 10 days, have yo u been in contact with someone who was confirmed or suspected to have Coronavirus/COVID-19? No / Unsure 08/06/2021 1:59 PM CDT documented as of this encounter Medications [...] tablet by mouth nightly at bedtime. 04/29/2021 05/16/202 2 SITagliptin (JANUVIA) 25 mg TabIndications:Type 2 diabetes mellitus with hyperglycemia, without long-term current use of insulin ([facility]) Take 1 tablet (25 mg total) by mouth daily. 30 tablet 2 08/05/2021 2 SUCRALFATE 1 G tabletIndications:Ga stroesophageal reflux disease without esophagitis TAKE 1 TABLET(1 GRAM) BY MOUTH THREE TIMES DAILY BEFORE MEALS 120 tablet 07/22/2021 2 triamcinolone acetonide 55 MCG/ACT nasal inhalerIndications:E nvironmental allergies,Allergic rhinitis, unspecified seasonality, unspecified trigger 03/09 3 documented as of this encounter Procedure Notes * Jian Liu MD - 08/06/2021 2:00 PM CDTAssociated Order(s): LIMITED CHANNEL UNATTENDED (HOME STUDY) [facility]???[place], [place] HOME SLEEP STUDY INTERPRETATION PATIENT NAME: Chuck Barlow DATE OF : 1995 DATE OF SERVICE: 08/06/2021 Ordering Phy Exam Description Pankaj Rosenberg M.D. Home Sleep Study ATTENDING PHYSICIAN: Dr. Jian Liu REFERRING PHYSICIAN: Dr. Pankaj Rosenberg SUMMARY DATA Sleep Study/ Architecture: This patient was studied using [employer] devices using 1 RIP effort belt and a pressure-based flow sensor. The evaluation was initiated at 08/06/2021 at 10:41 PM and was stopped at 08/07/2021 at 7:16 AM. The total recording time was 548.9 minutes,and the total monitoring time was 541 minutes. DIAGNOSTIC Total Apnea/ Hypopnea Index: 46.1/hr Average Sleep Oxygen Saturation: 93 Minimum Sleep Oxygen Saturation: Mean Heart Rate during Sleep: 83 73.0 Assessment/Plan: Severe Obstructive Sleep Apnea. [place] treatment option should be discussed with the patient and a plan for treatment should be made. Potential health consequences and medical importance of treatment should also be discussed with the patient. This patient should maintain good sleep hygiene techniques, maintain a consistent sleep/wake schedule with adequate hours of sleep, and avoid hazardous activities when sleepy. The patient should be cautioned about factors that may potentially exacerbate snoring and sleep-related problems, such as SALES OPERATIONS ASSISTANT depressants, especially at bedtime. This document was electronically signed by: Jian Liu M.D. on 08/11/2021 at 11:37 AM. documented in this encounter Plan of Treatment Upcoming Encounters Date Type Department Care Team (Late st Contact Info) Description 05/15/2024 3:30 PM TOUR ESCORT Appointment [facility] [place] [address] Pankaj Rosenberg MD [address] [place] [address] 05/25/2024 12:45 PM TOUR ESCORT Office Visit [facility] Physical Therapy [address] [place] [address] Pankaj Rosenberg MD [address] [place] [address] Maya Magaña, [place] [address] 05/30/2024 3:40 PM TOUR ESCORT Office Visit [facility] [place] [facility] - [address] [address] Pankaj Rosenberg MD [address] [place] [address] 06/20/2024 3:40 PM TOUR ESCORT Telemedicine [place] [address] [place] [address] Pankaj Rosenberg MD [address] [place] [address] 06/21/2024 1:00 PM TOUR ESCORT Office Visit [facility] Medical [facility] Orthopedic & Sports Medicine - [place] [address] [place] [address] Jose Ratliff MD [address] [place] [address] [place] [address] 03/27/2025 1:00 PM TOUR ESCORT Office Visit [facility] Multispecialty Care - [facility] 3 [facility] [address] [place] [address] Bob Oneal MD 3 [facility] [place] [address] [place] [address] documented as of this encounter Procedures Procedure Name Priority Date/Time Associated Diagnosis Comments LIMITED CHANNEL UNATTENDED (HOME STUDY) Routine 08/06/2021 2:00 PM CDT Chronic fatigue Suspected sleep apnea documented in this encounter Results * Limited Channel Unattended (Home Study) (G0399) (08/06/2021 2:00 PM CDT) Narrative [facility] SLEEP LAB - 08/06/2021 2:00 PM CDT Jian Liu MD ? 08/12/2021 10:53 AM [facility] [place] [place] HOME SLEEP STUDY INTERPRETATION PATIENT NAME: Chuck Barlow DATE OF : 1995 DATE OF SERVICE: 08/06/2021 Ordering Phy Exam Description Pankaj Rosenberg M.D. Home Sleep Study ATTENDING PHYSICIAN: Dr. Jian Liu REFERRING PHYSICIAN: Dr. Pankaj Rosenberg SUMMARY DATA Sleep Study/ Architecture: This patient was studied using [employer] devices using 1 RIP effort belt and a pressure-based flow sensor. The evaluation was initiated at 08/06/2021 at 10:41 PM and was stopped at 08/07/2021 at 7:16 AM. The total recording time was 548.9 minutes, and the total monitoring time was 541 minutes. DIAGNOSTIC Total Apnea/ Hypopnea Index: 46.1/hr Average Sleep Oxygen Saturation: 93 Minimum Sleep Oxygen Saturation: Mean Heart Rate during Sleep: 83 73.0 Assessment/Plan: Severe Obstructive Sleep Apnea. [place] treatment option should be discussed with the patient and a plan for treatment should be made. Potential health consequences and medical importance of treatment should also be discussed with the patient. This patient should maintain good sleep hygiene techniques, maintain a consistent sleep/wake schedule with adequate hours of sleep, and avoid hazardous activities when sleepy. The patient should be cautioned about factors that may potentially exacerbate snoring and sleep-related problems, such as SALES OPERATIONS ASSISTANT depressants, especially at bedtime. This document was electronically signed by: Jian Liu M.D. on 08/11/2021 at 11:37 AM. us Pankaj Rosenberg MD SLEEP CENTER ORDERABLES Final Re sult [facility] SLEEP [facility] documented in this encounter Visit Diagnoses Not on filedocumented in this encounter Additional Health Concerns Assessment Noted Time PHQ-9 Depression Total Score: 0 08/01/19 22 2:12 PM CDT documented as of this encounter Care Teams Aws Solution Architect Relationship Specialty Start Date End Date Pankaj Rosenberg MD [address] [address] PCP - General INTERNAL MEDICINE 06/15/21 documented as of this encounter
--- OUTSIDE RECORDS SUMMARY | 2024-05-13 10:54 | XMS_ITS | Encounter Summary ---
Author Organization [facility] Address [address] [place] [address]. [place], [place] [address] [place] [address] Care Team Providers Care Video Game Repair Technician Name Role Phone Pankaj Rosenberg MD Primary Care Provider [phone] Encounter Details Date Type Department Care Team (Latest Contact Info) Description 07/31/2021 Travel Social History Tobacco Use Types Packs/Day [...] on file Legal Sex Male 2:58 PM ASSOCIATE BUSINESS ANALYST Gender Identity Male 07/13/2021 5:19 AM ASSOCIATE BUSINESS ANALYST Sexual Orientation Straight 07/13/2021 5: 19 AM ASSOCIATE BUSINESS ANALYST COVID-19 Exposure Response Date Recorded In the last 10 days, have yo u been in contact with someone who was confirmed or suspected to have Coronavirus/COVID-19? No / Unsure 07/31/2021 1:58 PM CDT documented as of this encounter Plan of Treatment Upcoming Encounters Date Type Department Care Team (Late st Contact Info) Description 05/15/2024 3:30 PM ASSOCIATE BUSINESS ANALYST Appointment [facility] [place], [place] [address] Pankaj Rosenberg MD [address] [address] 05/25/2024 12:45 PM ASSOCIATE BUSINESS ANALYST Office [facility] Physical Therapy [facility] [address] [address] Pankaj Rosenberg MD [address] [address] Maya Magaña, [place] [address] 05/30/2024 3:40 PM ASSOCIATE BUSINESS ANALYST [facility] - [place] [address] [address] [place] [address] Pankaj Rosenberg MD [address] [address] 06/20/2024 3:40 PM ASSOCIATE BUSINESS ANALYST [facility]medicine [facility] - [place] [address] [address] [place] [address] Pankaj Rosenberg MD [address] [address] 06/21/2024 1:00 PM ASSOCIATE BUSINESS ANALYST Office Visit [facility] Medical Group Orthopedic & Sports Medicine - [place] [address] [place] [address] Jose Ratliff MD [address] [address] [place] [address] 03/27/2025 1:00 PM ASSOCIATE BUSINESS ANALYST Office Visit [facility] Medical [facility] Multispecialty Care - [facility] 3 [facility] [address] [place] [phone] Bob Oneal MD [address] [place] [address] documented as of this encounter Visit Diagnoses Not on filedocumented in this encounter Additional Health Concerns Assessment Noted Time PHQ-9 Depression Total Score: 0 08/01/19 2:12 PM CDT documented as of this encounter Care Teams Video Game Repair Technician Relationship Specialty Start Date End Date Pankaj Rosenberg MD [address] [address] PCP - General INTERNAL MEDICINE 06/15/21 documented as of this encounter
--- OUTSIDE RECORDS SUMMARY | 2024-05-13 10:54 | XMS_ITS | Encounter Summary ---
Author Organization [facility] Address [address] [place] [address]. [place], [place] [address] [place] [address] Care Team Providers Care Travel Counselor Automobile Club Name Role Phone Pankaj Rosenberg MD Primary Care Provider [phone] Reason for Referral * Imaging (Routine) - Closed Specialty Diagnoses / Procedures Referred By Horacio espinoza Referred To Contact RADIOLOGY Diagnoses Gallbladder polyp Procedures US ABD LIMITED Mario Oneal MD [address] [place] [address] [place] [address] Phone: tel: fax: Referral ID Status Reason Start Date Expiration Date Visits Re quested Visits Authorized [id number] Closed 07/31/2021 08/31/2022 1 1 Reason for Visit * Reason Comments New Patient GERD * Consultation (Routine) - Closed Specialty Diagnoses / Procedures Referred By Horacio espinoza Referred To Contact GASTROENTEROLOGY Diagnoses Gastroesophageal reflux disease without esophagitis Pankaj Rosenberg MD [address] [address] Phone: tel: fax: [facility] Medical Group Multispecialty Care - [address] [place] [address] Phone: tel: fax: Referral ID Status Reason Start Date Expiration Date Visits Re quested Visits Authorized [id number] Closed 07/13/2021 08/14/2022 99 99 Encounter Details Date Type Department Care Team (Latest Contact Info) Description 07/31/2021 2:00 PM CDT Office Visit [facility] Medical [facility] [address] [address] Mario Oneal MD [address] [place] [address] New Patient (GERD) Social History Tobacco Use Types Packs/Day Years Used Date Smoking Tobacco: Never Smokeless Tobacco: Former Snuff Quit: 08/14/2020 Tobacco Cessation:Counseling Given: No Comments:counseled [...] on file Legal Sex Male 2:58 PM CURATORIAL SPECIALIST Gender Identity Male 07/13/2021 5:19 AM CURATORIAL SPECIALIST Sexual Orientation Straight 07/13/2021 5: 19 AM CURATORIAL SPECIALIST COVID-19 Exposure Response Date Recorded In the last 10 days, have yo u been in contact with someone who was confirmed or suspected to have Coronavirus/COVID-19? No / Unsure 07/31/2021 1:58 PM CDT documented as of this encounter Last Filed Vital Signs Vital Sign Reading Time Taken Comments Blood Pressure 130/82 07/31/2021 2:07 PM CDT Pulse 97 07/31/2021 2:07 PM CDT Temperature 36.3 ??C (97.3 ??F) 07/31/2021 2:07 PM CD T Respiratory Rate - - Oxygen Saturation 98% 07/31/2021 2:07 PM CDT Inhaled Oxygen Concentration - - Weight 116.9 kg (257 lb 12.8 oz) 07/31/2021 2:07 PM CDT Height 180.3 cm (5' 11 ) 07/31/2021 2:07 PM CDT Body Mass Index 35.96 07/31/2021 2:07 PM CDT documented in this encounter Progress Notes * Mario Oneal MD - 07/31/2021 2:00 PM [...] st Contact Info) Description 05/15/2024 3:30 PM CURATORIAL SPECIALIST Appointment [facility] [place] [address] Pankaj Rosenberg MD [address] [place] [address] 05/25/2024 12:45 PM CURATORIAL SPECIALIST Office Visit [facility] Physical Therapy [address] [place] [address] Pankaj Rosenberg MD [address] [place] [address] Maya Magaña, [place] [address] 05/30/2024 3:40 PM CURATORIAL SPECIALIST [facility] [address] [address] [address] [place] [address] Pankaj Rosenberg MD [address] [place] [address] 06/20/2024 3:40 PM CURATORIAL SPECIALIST [facility] [address] [address] [place] [address] Pankaj Rosenberg MD [address] [place] [address] 06/21/2024 1:00 PM CURATORIAL SPECIALIST Office Visit [facility] Orthopedic & Sports Medicine - [place] [address] [place] [address] Jose Ratliff MD [address] [address] [place] [address] 03/27/2025 1:00 PM CURATORIAL SPECIALIST Office Visit [facility] Multispecialty Care - [facility] [address] [place] [address] Mario Oneal MD [address] [facility] [place] [address] documented as of this encounter Results * US ABD LIMITED [...] bile duct measures.4.4 mm. 3. ??Right kidney okoewayv02.9 x 5.4 x 5.9 cm. No focal [...] bile duct measures.4.4 mm. 3. Right kidney .9 x 5.4 x 5.9 cm. No focal mass orhydronephrosis. 4. Partially visualized pancreas without gross abnormality. Ordered By: MARIO ONEAL Interpreted By: Herman Perkins, 08/18/2021 11:01 AM Mario Oneal MD ULTRASOUND Final Result documented in this encounter Visit Diagnoses Diagnosis Gallbladder polyp- Primary Cholesterolosis of gallbladder Nausea and vomiting, unspecified vomiting type Change in bowel function Other symptoms involving digestive system Gallbladder polyp Cholesterolosis of gallbladder documented in this encounter Additional Health Concerns Assessment Noted Time PHQ-9 Depression Total Score: 0 08/01/19 22 2:12 PM CDT documented as of this encounter Care Teams Travel Counselor Automobile Club Relationship Specialty Start Date End Date Pankaj Rosenberg MD [address] [address] PCP - General INTERNAL MEDICINE 06/15/21 documented as of this encounter
--- OUTSIDE RECORDS SUMMARY | 2024-05-13 10:54 | XMS_ITS | Encounter Summary ---
Author Organization [facility] Address [address] [place] [address]. [place] [address] [place] [address] Care Team Providers Care Museum Librarian Name Role Phone Pankaj Rosenberg MD Primary Care Provider [phone] Reason for Visit * Reason Onset Date Comments Question 07/30/2021 Returned Call 07/30/2021 Encounter Details Date Type Department Care Team (Late st Contact Info) Description 07/30/2021 Telephone [facility] Medical Group Multispecialty Care - [address] [place] [phone] Bob Oneal MD [address] [place] [address] [address] [place], [place] [id number] Question; Returned Call Social History Tobacco Use Types [...] on file Legal Sex Male 2:58 PM FIRER ELECTRIC LOCOMOTIVE Gender Identity Male 07/13/2021 5:19 AM FIRER ELECTRIC LOCOMOTIVE Sexual Orientation Straight 07/13/2021 5: 19 AM FIRER ELECTRIC LOCOMOTIVE COVID-19 Exposure Response Date Recorded In the last 10 days, have yo u been in contact with someone who was confirmed or suspected to have Coronavirus/COVID-19? No / Unsure 07/13/2021 1:21 PM FIRER ELECTRIC LOCOMOTIVE documented as of this encounter Progress Notes * Violeta Gutierrez - 07/30/2021 11:34 AM CDT Pt returned call. I relayed the below message. Pt is ok with seeing Lily for his MANAGER CORPORATE COMMUNICATIONS appt on 07/31 No call back needed unless there are additional questions or concerns * Jennifer Dolan - 07/30/2021 8:26 AM CDT LVM for pt to give the office a call, patient has an appt with Dr. Oneal on 07/31/2021 in [place]. MANAGER CORPORATE COMMUNICATIONS Lily can see the patient for the visit if it's okay. documented in this encounter Plan of Treatment Upcoming Encounters Date Type Department Care Team (Late st Contact Info) Description 05/15/2024 3:30 PM FIRER ELECTRIC LOCOMOTIVE Appointment [facility] [place] [address] Pankaj Rosenberg MD [address] [place] [address] 05/25/2024 12:45 PM FIRER ELECTRIC LOCOMOTIVE Office Visit [facility] Physical Therapy [address] [place] [address] [place] [address] [place] [address] Maya Magaña, [place] [address] 05/30/2024 3:40 PM FIRER ELECTRIC LOCOMOTIVE Office Visit [facility] Multispecialty Care - [place] [address] [address] [address] [place] [address] Pankaj Rosenberg MD [address] [address] 06/20/2024 3:40 PM FIRER ELECTRIC LOCOMOTIVE Telemedicine [facility] Multispecialty Care - [place] [address] [address] [address] [place] [address] Pankaj Rosenberg MD [address] [address] 06/21/2024 1:00 PM FIRER ELECTRIC LOCOMOTIVE Office Visit [facility] Orthopedic & Sports Medicine - [place] [address] [place] [address] Jose Ratliff MD [address] [facility] [address] [place] [address] 03/27/2025 1:00 PM FIRER ELECTRIC LOCOMOTIVE Office Visit [facility] Multispecialty Care - [facility] [address] [facility], [address] [place] [address] Bob Oneal MD 3 [facility] [address] [place] [address] documented as of this encounter Visit Diagnoses Not on filedocumented in this encounter Additional Health Concerns Assessment Noted Time PHQ-9 Depression Total Score: 1 06/15/19 22 12:13 PM FIRER ELECTRIC LOCOMOTIVE documented as of this encounter Care Teams Museum Librarian Relationship Specialty Start Date End Date Pankaj Rosenberg MD [address] [place] [address] PCP - General INTERNAL MEDICINE 06/15/21 documented as of this encounter
--- OUTSIDE RECORDS SUMMARY | 2024-05-13 10:54 | XMS_ITS | Encounter Summary ---
Author Organization [facility] Address [address] [place] [address]. [place], [place] [address] [place] [address] Care Team Providers Care Percussion Instrument Tuner Name Role Phone Pankaj Rosenberg MD Primary Care Provider [phone] Reason for Visit * Reason Onset Date Comments Referral 07/27/2021 Encounter Details Date Type Department Care Team (Late st Contact Info) Description 07/27/2021 Telephone [facility] Medical Group Multispecialty Care - [place] [address] [address] [address] [place] [address] Pankaj Rosenberg MD [address] [place] [address] 157 [place] [address] Referral Social History Tobacco Use Types Packs/Day Years Used Date Smoking Tobacco: Never Smokeless Tobacco: Former Snuff Quit: 08/14/2020 Comments:counseled by Dr Sammie gallardo Alcohol Use Standard Drinks/Week Comments Yes 5 (1 standard drink = 0.6 oz pur e alcohol) PHQ-2 Answer Date Recorded PHQ-2 Score - If the patient scores above 3, please move on to questions 3-9 1 06/15/2021 Sex and Gender Information Value Date Recorded Sex Assigned at Not on file Legal Sex Male 2:58 PM ENGLISH AS A SECOND LANGUAGE TEACHER Gender Identity Male 07/13/2021 5:19 AM ENGLISH AS A SECOND LANGUAGE TEACHER Sexual Orientation Straight 07/13/2021 5: 19 AM ENGLISH AS A SECOND LANGUAGE TEACHER COVID-19 Exposure Response Date Recorded In the last 10 days, have yo u been in contact with someone who was confirmed or suspected to have Coronavirus/COVID-19? No / Unsure 07/13/2021 1:21 PM ENGLISH AS A SECOND LANGUAGE TEACHER documented as of this encounter Progress Notes * Pankaj Rosenberg MD - 07/27/2021 1:38 PM CDT ENT not accepting his current insurance. Referral center notified. documented in this encounter Plan of Treatment Upcoming Encounters Date Type Department Care Team (Late st Contact Info) Description 05/15/2024 3:30 PM ENGLISH AS A SECOND LANGUAGE TEACHER Appointment [facility] [place] [address] Pankaj Rosenberg MD [address] [address] 05/25/2024 12:45 PM ENGLISH AS A SECOND LANGUAGE TEACHER Office Visit [facility] Physical Therapy [address] [place] [address] Pankaj Rosenberg MD [address] [address] Maya Magaña, [place] [address] 05/30/2024 3:40 PM ENGLISH AS A SECOND LANGUAGE TEACHER Office Visit [facility] - [place] [address] [place] [address] Pankaj Rosenberg MD [address] [address] 06/20/2024 3:40 PM ENGLISH AS A SECOND LANGUAGE TEACHER Telemedicine [address] [address] [address] [place] [address] Pankaj Rosenberg MD [address] [address] 06/21/2024 1:00 PM ENGLISH AS A SECOND LANGUAGE TEACHER Office Visit [facility] Medical Group Orthopedic & Sports Medicine - [place] [address] [place] [address] Jose Ratliff MD [address] [address] [place] [address] 03/27/2025 1:00 PM ENGLISH AS A SECOND LANGUAGE TEACHER Office Visit [facility] Multispecialty Care - [facility] 3 [facility] [place] [address] Bob Oneal MD [address] [facility] [place] [address] documented as of this encounter Visit Diagnoses Not on filedocumented in this encounter Additional Health Concerns Assessment Noted Time PHQ-9 Depression Total Score: 1 06/15/19 22 12:13 PM ENGLISH AS A SECOND LANGUAGE TEACHER documented as of this encounter Care Teams Percussion Instrument Tuner Relationship Specialty Start Date End Date Pankaj Rosenberg MD [address] [address] PCP - General INTERNAL MEDICINE 06/15/21 documented as of this encounter
--- OUTSIDE RECORDS SUMMARY | 2024-05-13 10:54 | XMS_ITS | Encounter Summary ---
Author Organization [facility] Address [address] [place] [address]. [place], [place] [address] [place] [address] Care Team Providers Care Print Graphic Designer Name Role Phone Pankaj Rosenberg MD Primary Care Provider [phone] Reason for Visit * Reason Onset Date Comments Medication 08/05/2021 Encounter Details Date Type Department Care Team (Late st Contact Info) Description 08/05/2021 Telephone [facility] Medical Group Multispecialty Care - [place] [address] [address] [address] [place] [address] Pankaj Rosenberg MD [address] [place] [address] 157 [place] [address] Medication Social History Tobacco Use [...] on file Legal Sex Male 2:58 PM BODY AND FRAME TECHNICIAN Gender Identity Male 07/13/2021 5:19 AM BODY AND FRAME TECHNICIAN Sexual Orientation Straight 07/13/2021 5: 19 AM BODY AND FRAME TECHNICIAN COVID-19 Exposure Response Date Recorded In the last 10 days, have yo u been in contact with someone who was confirmed or suspected to have Coronavirus/COVID-19? No / Unsure 07/31/2021 1:58 PM CDT documented as of this encounter Progress Notes * Pankaj Rosenberg MD - 08/05/2021 7:02 PM CDT Fargixa still costly even after insurance. Change to sitagliptin 25 mg daily. Pharmacy called and cost down to $25/month supply. Patient notified. documented in this encounter Plan of Treatment Upcoming Encounters Date Type Department Care Team (Late st Contact Info) Description 05/15/2024 3:30 PM BODY AND FRAME TECHNICIAN Appointment [facility] [place] [address] Pankaj Rosenberg MD [address] [place] [address] 05/25/2024 12:45 PM BODY AND FRAME TECHNICIAN Office Visit [facility] Physical Therapy [address] [place] [address] Pankaj Rosenberg MD [address] [place] [address] Maya Magaña, [place] [address] 05/30/2024 3:40 PM BODY AND FRAME TECHNICIAN [facility] [place] [address] [address] [address] [place] [address] Pankaj Rosenberg MD [address] [place] [address] 06/20/2024 3:40 PM BODY AND FRAME TECHNICIAN [facility]medicine [facility] [place] [address] [address] [address] [place] [address] Pankaj Rosenberg MD 1188 [facility] 157 [place] [address] 06/21/2024 1:00 PM BODY AND FRAME TECHNICIAN Office Visit [facility] Medical Group Orthopedic & Sports Medicine - [place] [address] [place] [address] Jose Ratliff MD [address] [address] [place] [address] 03/27/2025 1:00 PM BODY AND FRAME TECHNICIAN Office Visit [facility] Multispecialty Care - [facility] 3 [facility] [address] [place] [address] Bob Oneal MD [address] [place] [address] documented as of this encounter Visit Diagnoses Diagnosis Type 2 diabetes mellitus with hyperglycemia, without long-term current use of insulin ([facility])- Primary documented in this encounter Additional Health Concerns Assessment Noted Time PHQ-9 Depression Total Score: 0 08/01/19 22 2:12 PM CDT documented as of this encounter Care Teams Print Graphic Designer Relationship Specialty Start Date End Date Pankaj Rosenberg MD [address] [address] PCP - General INTERNAL MEDICINE 06/15/21 documented as of this encounter
--- OUTSIDE RECORDS SUMMARY | 2024-05-13 10:55 | XMS_ITS | Encounter Summary ---
Author Organization [facility] Address [address] [place] [address]. [place], [place] [address] [place] [address] Care Team Providers Care Still Operator Brandy Name Role Phone Pankaj Rosenberg MD Primary Care Provider [phone] Reason for Visit * Reason Onset Date Comments Question 06/22/2021 Medication Quest ion Encounter Details Date Type Department Care Team (Late st Contact Info) Description 06/22/2021 Telephone [facility] Medical Group Multispecialty Care - [place] [address] [address] [address] [place] [address] Pankaj Rosenberg MD [address] [place] [address] 157 [place] [address] Question (Medication Question) Social History Tobacco Use Types Packs/Day Years [...] on file Legal Sex Male 2:58 PM MECHANICAL MAINTENANCE Gender Identity Male 07/13/2021 5:19 AM MECHANICAL MAINTENANCE Sexual Orientation Straight 07/13/2021 5: 19 AM MECHANICAL MAINTENANCE COVID-19 Exposure Response Date Recorded In the last month, have you been in contact with someone who was confirmed or suspected to have Coronavirus / COVID-19? No / Unsure 06/15/2021 11:05 AM MECHANICAL MAINTENANCE documented as of this encounter Progress Notes * Pankaj Rosenberg MD - 06/22/2021 3:28 PM CST I called and spoke to patient. Okay to hold off initiating Metformin at this time due to upper respiratory symptoms. Once he recovers, he will resume taking Metformin. All questions answered. ANICAL MAINTENANCE * Pankaj Rosenberg MD - 06/22/2021 3:28 PM CST ----- Message from Kimmy Hull MA sent at 06/22/2021 1:59 PM MECHANICAL MAINTENANCE ----- ----- Message ----- From: Roberto Moffett Sent: 06/22/2021 11:29 AM MECHANICAL MAINTENANCE To: Pankaj Riggins Nurse ANICAL MAINTENANCE * Kimmy Hull MA - 06/22/2021 1:59 PM CST Please advise. ANICAL MAINTENANCE * Roberto Moffett - 06/22/2021 11:26 AM CST Patient called and said that he currently has a cold and wanted to know if he should wait to take metformin until after he is better due the side effects that is can cause. Please call patient. ANICAL MAINTENANCE documented in this encounter Plan of Treatment Upcoming Encounters Date Type Department Care Team (Late st Contact Info) Description 05/15/2024 3:30 PM MECHANICAL MAINTENANCE Appointment [facility] [place] [address] Pankaj Rosenberg MD 1188 [facility] [address] [place] [address] 05/25/2024 12:45 PM MECHANICAL MAINTENANCE Office Visit [facility] Physical Therapy [facility] [address] [address] Pankaj Rosenberg MD [address] [address] Maya Magaña, [place] [address] 05/30/2024 3:40 PM MECHANICAL MAINTENANCE [facility] - [place] [address] [address] [address] [place] [address] Pankaj Rosenberg MD [address] [address] 06/20/2024 3:40 PM MECHANICAL MAINTENANCE [facility]icine [facility] - [place] [address] [address] [place] [address] Pankaj Rosenberg MD [address] [address] 06/21/2024 1:00 PM MECHANICAL MAINTENANCE Office Visit [facility] Medical [facility] Orthopedic & Sports Medicine - [place] [address] [place] [address] Jose Ratliff MD [address] [address] [place] [address] 03/27/2025 1:00 PM MECHANICAL MAINTENANCE [facility] 3 [facility] [address] [place] [address] Bob Oneal MD 3 [facility] [address] [place] [address] documented as of this encounter Visit Diagnoses Not on filedocumented in this encounter Additional Health Concerns Assessment Noted Time PHQ-9 Depression Total Score: 1 06/15/19 22 12:13 PM MECHANICAL MAINTENANCE documented as of this encounter Care Teams Still Operator Brandy Relationship Specialty Start Date End Date Pankaj Rosenberg MD [facility] [address] [place] [address] PCP - General INTERNAL MEDICINE 06/15/21 documented as of this encounter
--- OUTSIDE RECORDS SUMMARY | 2024-05-13 10:55 | XMS_ITS | Encounter Summary ---
Author Organization [facility] Address [address] [place] [address]. [place], [place] [address] [place] [address] Care Team Providers Care Cashier Clerk Name Role Phone Pankaj Rosenberg MD Primary Care Provider [phone] Reason for Visit * Reason Onset Date Comments Medication 06/16/2021 Encounter Details Date Type Department Care Team (Late st Contact Info) Description 06/16/2021 Telephone [facility] Medical Group Multispecialty Care - [place] [address] [address] [place] [address] Pankaj Rosenberg MD [address] [place] [address] 157 [place] [address] Medication Social History Tobacco Use [...] on file Legal Sex Male 2:58 PM WIRELINE FIELD OPERATOR Gender Identity Male 07/13/2021 5:19 AM WIRELINE FIELD OPERATOR Sexual Orientation Straight 07/13/2021 5: 19 AM WIRELINE FIELD OPERATOR COVID-19 Exposure Response Date Recorded In the last month, have you been in contact with someone who was confirmed or suspected to have Coronavirus / COVID-19? No / Unsure 06/15/2021 11:05 AM WIRELINE FIELD OPERATOR documented as of this encounter Plan of Treatment Upcoming Encounters Date Type Department Care Team (Late st Contact Info) Description 05/15/2024 3:30 PM WIRELINE FIELD OPERATOR Appointment [facility] [place] [address] Pankaj Rosenberg MD [address] [id number] 05/25/2024 12:45 PM WIRELINE FIELD OPERATOR Office Visit [facility] Physical Therapy [address] [place] [address] Pankaj Rosenberg MD [address] [place] [address] Maya Magaña, [place] [address] 05/30/2024 3:40 PM WIRELINE FIELD OPERATOR Office Visit [facility] Medical [facility] Multispecialty Care - [address] [address] Pankaj Rosenberg MD [address] [address] 06/20/2024 3:40 PM WIRELINE FIELD OPERATOR Telemedicine [facility] Medical [facility] Multispecialty Care - [place] [address] [address] [place] [address] Pankaj Rosenberg MD [address] [address] 06/21/2024 1:00 PM WIRELINE FIELD OPERATOR Office Visit [facility] Medical Group Orthopedic & Sports Medicine - [place] [address] [place] [address] Jose Ratliff MD [address] [address] [place] [address] 03/27/2025 1:00 PM WIRELINE FIELD OPERATOR Office Visit [facility] Medical Group Multispecialty Care - [facility] 3 [facility] [address] [place] [address] Bob Oneal MD 3 [facility] [address] [place] [address] documented as of this encounter Visit Diagnoses Diagnosis Type 2 diabetes mellitus with hyperglycemia, without long-term current use of insulin ([facility])- Primary documented in this encounter Additional Health Concerns Assessment Noted Time PHQ-9 Depression Total Score: 1 06/15/19 22 12:13 PM WIRELINE FIELD OPERATOR documented as of this encounter Care Teams Cashier Clerk Relationship Specialty Start Date End Date aPnkaj Rosenberg MD [address] [address] PCP - General INTERNAL MEDICINE 06/15/21 documented as of this encounter
--- OUTSIDE RECORDS SUMMARY | 2024-05-13 10:55 | XMS_ITS | Encounter Summary ---
Author Organization [facility] Address [address] [place] [address]. [place], [place] [address] [place] [address] Care Team Providers Care Safety Instruction Police Officer Name Role Phone Pankaj Rosenberg MD Primary Care Provider [phone] Encounter Details Date Type Department Care Team (Latest Contact Info) Description 07/13/2021 Travel Social History Tobacco Use Types Packs/Day [...] on file Legal Sex Male 2:58 PM ADJUNCT ART HISTORY INSTRUCTOR Gender Identity Male 07/13/2021 5:19 AM ADJUNCT ART HISTORY INSTRUCTOR Sexual Orientation Straight 07/13/2021 5: 19 AM ADJUNCT ART HISTORY INSTRUCTOR COVID-19 Exposure Response Date Recorded In the last 10 days, have yo u been in contact with someone who was confirmed or suspected to have Coronavirus/COVID-19? No / Unsure 07/13/2021 1:21 PM ADJUNCT ART HISTORY INSTRUCTOR documented as of this encounter Plan of Treatment Upcoming Encounters Date Type Department Care Team (Late st Contact Info) Description 05/15/2024 3:30 PM ADJUNCT ART HISTORY INSTRUCTOR Appointment [facility] [place], [place] [id number] Pankaj Rosenberg MD [address] [address] 05/25/2024 12:45 PM ADJUNCT ART HISTORY INSTRUCTOR Office Visit [facility] Physical [facility] [address] [address] Pankaj Rosenberg MD [address] [address] Maya Magaña, [place] [address] 05/30/2024 3:40 PM ADJUNCT ART HISTORY INSTRUCTOR Office Visit [facility] [address] [address] [place] [address] Pankaj Rosenberg MD [address] [address] 06/20/2024 3:40 PM ADJUNCT ART HISTORY INSTRUCTOR [facility] [address] [address] [place] [address] Pankaj Rosenberg MD [address] [address] 06/21/2024 1:00 PM ADJUNCT ART HISTORY INSTRUCTOR Office Visit [facility] Medical [facility] [place] [address] [place] [address] Jose Ratliff MD [address] [address] [place] [address] 03/27/2025 1:00 PM ADJUNCT ART HISTORY INSTRUCTOR Office Visit [facility] Medical [facility] Multispecialty Care - [facility] [address] [facility] [address] [place] [address] Bob Oneal MD [address] [place] [address] documented as of this encounter Visit Diagnoses Not on filedocumented in this encounter Additional Health Concerns Assessment Noted Time PHQ-9 Depression Total Score: 1 06/15/19 22 12:13 PM ADJUNCT ART HISTORY INSTRUCTOR documented as of this encounter Care Teams Safety Instruction Police Officer Relationship Specialty Start Date End Date Pankaj Rosenberg MD [facility] [address] [place] [address] PCP - General INTERNAL MEDICINE 06/15/21 documented as of this encounter
--- OUTSIDE RECORDS SUMMARY | 2024-05-13 10:55 | XMS_ITS | Encounter Summary ---
Author Organization [facility] Address [address] [place] [address]. [place], [place] [address] [place] [address] Care Team Providers Care Manager Assessment Name Role Phone Pankaj Rosenberg MD Primary Care Provider [phone] Encounter Details Date Type Department Care Team (Latest Contact Info) Description 07/12/2021 Travel Social History Tobacco Use Types Packs/Day [...] file Legal Sex Male 2:58 PM MEDICAL OFFICER PSYCHIATRY Gender Identity Male 07/13/2021 5:19 AM MEDICAL OFFICER PSYCHIATRY Sexual Orientation Straight 07/13/2021 5: 19 AM MEDICAL OFFICER PSYCHIATRY COVID-19 Exposure Response Date Recorded In the last 10 days, have yo u been in contact with someone who was confirmed or suspected to have Coronavirus/COVID-19? No / Unsure 07/12/2021 9:21 AM MEDICAL OFFICER PSYCHIATRY documented as of this encounter Plan of Treatment Upcoming Encounters Date Type Department Care Team (Late st Contact Info) Description 05/15/2024 3:30 PM MEDICAL OFFICER PSYCHIATRY Appointment [place] [address] Pankaj Rosenberg MD [address] [address] 05/25/2024 12:45 PM MEDICAL OFFICER PSYCHIATRY Office Visit [facility] Physical Therapy [facility] [address] [address] Pankaj Rosenberg MD [address] [address] Maya Magaña, [place] [address] 05/30/2024 3:40 PM MEDICAL OFFICER PSYCHIATRY Office [facility] [place] [facility] [address] [address] [place] [address] Pankaj Rosenberg MD [address] [address] 06/20/2024 3:40 PM MEDICAL OFFICER PSYCHIATRY [facility] [place] [facility] [address] [address] [place] [address] Pankaj Rosenberg MD [address] [address] 06/21/2024 1:00 PM MEDICAL OFFICER PSYCHIATRY Office Visit [facility] Medical [facility] [place] [address] [place] [address] Jose Ratliff MD [address] [address] [place] [address] 03/27/2025 1:00 PM MEDICAL OFFICER PSYCHIATRY Office Visit [facility] Medical [facility] Multispecialty Care - [facility] [address] [facility] [address] [place] [phone] Bob Oneal MD [address] [place] [address] documented as of this encounter Visit Diagnoses Not on filedocumented in this encounter Additional Health Concerns Assessment Noted Time PHQ-9 Depression Total Score: 1 06/15/19 22 12:13 PM MEDICAL OFFICER PSYCHIATRY documented as of this encounter Care Teams Manager Assessment Relationship Specialty Start Date End Date Pankaj Rosenberg MD [facility] [address] [place] [address] PCP - General INTERNAL MEDICINE 06/15/21 documented as of this encounter
--- OUTSIDE RECORDS SUMMARY | 2024-05-13 10:55 | XMS_ITS | Encounter Summary ---
Author Organization [facility] Address [address] [place] [address]. [place], [place] [id number] [place] [id number] Care Team Providers Care Assistant Account Manager Name Role Phone Pankaj Rosenberg MD Primary Care Provider [phone] Reason for Referral * Consultation (Routine) - Closed Specialty Diagnoses / Procedures Referred By Contac t Referred To Contact OTOLARYNGOLOGY Diagnoses Allergic rhinitis, unspecified seasonality, unspecified trigger Chronic frontal sinusitis Pankaj Rosenberg MD [address] [address] Phone: tel: fax: [facility] [address] [place] [phone] Phone: tel: fax: Referral ID Status Reason Start Date Expiration Date Visits Re quested Visits Authorized [id number] Closed 07/13/2021 08/12/2022 100 100 OWNED SALES MANAGER * Consultation (Routine) - Closed Specialty Diagnoses / Procedures Referred By Contlilian t Referred To Contact GASTROENTEROLOGY Diagnoses Gastroesophageal reflux disease without esophagitis Pankaj Rosenberg MD [address] [address] Phone: tel: fax: [facility] Mult[facility]pecialty Care - [address], [address] [place] [address] Phone: tel: fax: Referral ID Status Reason Start Date Expiration Date Visits Re quested Visits Authorized [id number] Closed 07/13/2021 08/14/2022 99 99 OWNED SALES MANAGER * Consultation/Treatment (Routine) - Closed Specialty Diagnoses / Procedures Referred By Contac t Referred To Contact OPHTHALMOLOGY Diagnoses Type 2 diabetes mellitus with hyperglycemia, without long-term current use of insulin ([facility]) Pankaj Rosenberg MD [address] [address] Phone: tel: fax: [facility] [address] [place] [address] Phone: tel: fax: Referral ID Status Reason Start Date Expiration Date V isits Requested Visits Authorized [id number] Closed Specialty Services 07/13/2021 08/12/2022 100 100 OWNED SALES MANAGER Reason for Visit * Reason Comments Follow Up Pt is here to follow up on gerd and Diabetes. Encounter Details Date Type Department Care Team (Latest Contact Info) Description 07/13/2021 1:30 PM PRE OWNED SALES MANAGER Office Visit [facility] Multispecialty Care - [place] [address] [address] [place] [address] Pankaj Rosenberg MD [address] [place] [phone] Follow Up (Pt is here to follow up on gerd and Diabetes.) Social History Tobacco Use Types Packs/Day Years Used Date Smoking Tobacco: Never Smokeless Tobacco: Former Snuff Quit: 08/14/2020 Tobacco Cessation:Counseling Given: Yes Comments:counseled [...] on file Legal Sex Male 2:58 PM PRE OWNED SALES MANAGER Gender Identity Male 07/13/2021 5:19 AM PRE OWNED SALES MANAGER Sexual Orientation Straight 07/13/2021 5: 19 AM PRE OWNED SALES MANAGER COVID-19 Exposure Response Date Recorded In the last 10 days, have yo u been in contact with someone who was confirmed or suspected to have Coronavirus/COVID-19? No / Unsure 07/13/2021 1:21 PM PRE OWNED SALES MANAGER documented as of this encounter Last Filed Vital Signs Vital Sign Reading Time Taken Comments Blood Pressure 137/88 07/13/2021 1:38 PM PRE OWNED SALES MANAGER Pulse 97 07/13/2021 1:38 PM PRE OWNED SALES MANAGER Temperature 36.9 ??C (98.5 ??F) 07/13/2021 1:38 PM CS T Respiratory Rate 18 07/13/2021 1:38 PM PRE OWNED SALES MANAGER Oxygen Saturation 99% 07/13/2021 1:38 PM PRE OWNED SALES MANAGER Inhaled Oxygen Concentration - - Weight 118.4 kg (261 lb) 07/13/2021 1:38 PM PRE OWNED SALES MANAGER Height 180.3 cm (5' 11 ) 07/13/2021 1:38 PM PRE OWNED SALES MANAGER Body Mass Index 36.4 07/13/2021 1:38 PM PRE OWNED SALES MANAGER documented in this encounter Patient Instructions * Patient Instructions* Pankaj Rosenberg MD - 07/13/2021 1:30 PM PRE OWNED SALES MANAGER Images from the original note were not included. Follow up in 2 months. Patient Education Patient Education Acid Reflux and Gastroesophageal Reflux Disease in Adults The Basics Written by the doctors and editors at [facility] What is acid reflux???--??Acid reflux is when the acid that is normally in your stomach backs up into the esophagus. The esophagus is the tube that carries food from your mouth to your stomach (figure 1). When acid reflux causes bothersome symptoms or damage, doctors call it gastroesophageal reflux disease or GERD. What are the symptoms of acid reflux???--??The most common symptoms are: ?? Heartburn, which is a burning feeling in the chest ?? Regurgitation, which is when acid and undigested food flow back into your throat or mouth Other symptoms might include: ?? Stomach or chest pain ?? Trouble swallowing ?? Having a raspy voice or a sore throat ?? Unexplained cough ?? Nausea or vomiting Is there anything I can do on my own to feel better???--??Yes. You might feel better if you: ?? Lose weight (if you are overweight) ?? Raise the head of your bed by 6 to 8 inches - You can do this by putting blocks of wood or rubber under 2 legs of the bed or a foam wedge under the mattress. ?? Avoid foods that make your symptoms worse - For some people these include coffee, chocolate, alcohol, peppermint, and fatty foods. ?? Stop smoking, if you smoke ?? Avoid late meals - Lying down with a full stomach can make reflux worse. Try to plan meals for at least 2 to 3 hours before bedtime. ?? Avoid tight clothing - Some people feel better if they wear comfortable clothing that does not squeeze the stomach area. How is acid reflux treated???--??There are a few main types of medicines that can help with the symptoms of acid reflux. The most common are antacids, histamine blockers, and proton pump inhibitors (table 1). All of these medicines work by reducing or blocking stomach acid. But they each do that orestes different way. ?? For mild symptoms, antacids can help, but they work only for a short time. Histamine blockers are stronger and last longer than antacids. You can buy antacids and most histamine blockers without aprescription. ?? For frequent and more severe symptoms, proton pump inhibitors are the most effective medicines. Some of these medicines are sold without a prescription. But there are other versions that your doctor can prescribe. Sometimes, medicines cost less if you get them with a doctor's prescription. Other times, non-prescription medicines cost less. If you are worried about cost, ask your pharmacist about ways to pay less for your medicines. Should I see a doctor or nurse about my acid reflux???--??Some people can manage their acid reflux on their own by changing their habits or taking non- prescription medicines. But you should see a doctor or nurse if: ?? Your symptoms are severe or last a long time ?? You cannot seem to control your symptoms ?? You have had symptoms for many years You should also see a doctor or nurse right away if you: ?? Have trouble swallowing, or feel as though food gets stuck on the way down ?? Lose weight when you are not trying to ?? Have chest pain ?? Choke when you eat ?? Vomit blood or have bowel movements that are red, black, or look like tar What if my child or teenager has acid reflux???--??If your child or teenager has acid reflux, take him or her to see a doctor or nurse. Do not give your child medicines to treat acid reflux without talking to a doctor or nurse. In children, acid reflux can be caused by a number of problems. It's important to have a doctor or nurse check for these problems before trying any treatments. All topics are updated as new evidence becomes available and our peer review process is complete. This topic retrieved from [employer] on: Apr 21, 2021. Topic 69775 Version 11.0 Release: 29.5.2 - C29.340 ?2020??[employer] and/or its affiliates.??All rights reserved. figure 1: Upper digestive tract The upper digestive tract includes the esophagus??(the tube that connects the mouth to the stomach), the stomach, and the duodenum (the first part of the small intestine). Graphic 80104 Version 6.0 table 1: Medicines used to reduce stomach acid Medicine type Medicine name examples Antacids* Calcium carbonate (sample brand names: Maalox, Tums) Aluminum hydroxide, magnesium hydroxide, and simethicone (sample brand name: Mylanta) Surface agents Sucralfate (brand name: Carafate) Histamine blockers?? Famotidine (brand name: Pepcid) Cimetidine (brand name: Tagamet) Proton pump inhibitors Omeprazole (brand name: Prilosec) Esomeprazole (brand name: Nexium) Pantoprazole (brand name: Protonix) Lansoprazole (brand name: Prevacid) Dexlansoprazole (brand name: Dexilant) Rabeprazole (brand name: AcipHex) Graphic 99466 Version 14.0 Consumer Information Use and Disclaimer This information is not specific medical advice and does not replace information you receive from your health care provider. This is only a brief summary of general information. It does NOT include all information about conditions, illnesses, injuries, tests, procedures, treatments, therapies, discharge instructions or life-style choices that may apply to you. You must talk with your health care provider for complete information about your health and treatment options. This information should not be used to decide whether or not to accept your health care provider's advice, instructions or recommendations. Only your health care provider has the knowledge and training to provide advice that is right for you. The use of this information is governed by the [employer] End User License Agreement, available at https://www.Panvidea/en/solutions/icanbuy/about/mili.The use of [employer] content is governed by the [employer] Terms of Use. ??2020 [employer]. All rights reserved. Copyright ?2020??[employer] and/or its affiliates.??All rights reserved. OWNED SALES MANAGER OWNED SALES MANAGER documented in this encounter Progress Notes * Pankaj Rosenberg MD - 07/13/2021 1:30 PM CSTSummary: Follow-up notes Images from the original note were not included. Internal Medicine Outpatient Progress Note CC: Follow Up (Pt is here to follow up on gerd and Diabetes.) HPI: Chuck Barlow is a 26-year-old male who presents for follow-up for new diagnosis of diabetes mellitus, GERD symptoms and allergies. Patient was seen a couple of weeks ago to establish care. Noted underlining history of arthrogryposis. Blood work revealed new diagnosis of diabetes mellitus with A1c of 6.5%. He has since been started on Metformin 500 mg twice daily. Endorses compliance to medications but has noticed ongoing bloatedness and diarrhea and still has epigastric discomfort. Currently does not follow routinely with endocrinology. Patient also here for follow-up for GERD symptoms. He has since been started on omeprazole 40 mg daily and sulcrafate. Notes symptoms are not controlled though his nausea has improved. Denies any concerns for blood in stool or melena. Taking medications appropriately. Denies any concerns for pain with swallowing or difficulty with swallowing. Worried about on going symptoms. Patient is also here for follow-up for allergies. Recently started on Zyrtec and singulair to help with symptoms. Notes symptoms are not controlled. He had nasal septum repaired a while back. He was to have have had allergy shots but never started. Problem List Patient Active Problem List Diagnosis ??? Mixed hyperlipidemia ??? Traumatic brain injury (CMS/HCC) ??? Nonalcoholic steatohepatitis ??? Gallbladder polyp ??? Fracture of spinous process of cervical vertebra (CMS/HCC) ??? Essential hypertension, benign ??? Deviated nasal septum ??? Allergic rhinitis ??? Arthrogryposis ??? Type 2 diabetes mellitus with hyperglycemia, without long-term current use of insulin (CMS/HCC) ??? Gastroesophageal reflux disease without esophagitis Past Medical History: Diagnosis Date ??? Allergy ??? Arthrogryposis ??? Gastroschisis ??? Hyperlipidemia ??? Hypertension Past Surgical History: Procedure Laterality Date ??? NONE Family History Problem Relation Name Age of Onset ??? No Known Problems Mother ??? No Known Problems Father ??? Heart Disease Maternal Grandfather ??? Heart Disease Paternal Grandfather ??? Thyroid Disease Paternal Grandfather Social History Tobacco Use ??? Smoking status: Never Smoker ??? Smokeless tobacco: Former User Types: Snuff ??? Tobacco comment: counseled by Dr Rosenberg Vaping Use ??? Vaping Use: Never used Substance Use Topics ??? Alcohol use: Yes Alcohol/week: 5.0 standard drinks Types: 3 Cans of beer per week ??? Drug use: Never Medications: Outpatient Medications Marked as Taking for the 07/13/21 encounter (Office Visit) with Pankaj Rosenberg MD Medication Sig Dispense Refill ??? amLODIPine 10 MG tablet Take 1 tablet (10 mg total) by mouth daily. 90 tablet 1 ??? amoxicillin-clavulanate (AUGMENTIN) 875-125 MG tablet Take 1 tablet (875 mg total) by mouth 2 (two) times daily for 5 days. 10 tablet 0 ??? azelastine 0.1 % nasal spray 1 spray by Nasal route 2 (two) times daily. Use in each nostril asdirected 30 mL 1 ??? cetirizine 5 MG chewable tablet Chew 5 mg by mouth daily. ??? glipiZIDE 5 MG tablet Take 0.5 tablets (2.5 mg total) by mouth every morning before breakfast. 60 tablet 1 ??? lisinopril 20 MG tablet Take 1 tablet (20 mg total) by [...] nightly at bedtime. 90 tablet 1 ??? sucralfate 1 G tablet Take 1 tablet (1 g total) by mouth 3 (three) times daily before meals. 120 tablet 0 ??? triamcinolone acetonide (NASACORT ALLERGY 24HR) 55 MCG/ACT nasal inhaler Allergies: No Known Allergies Review of Systems Constitutional: Negative for chills, diaphoresis, fever, malaise/fatigue and weight loss. HENT: Negative. Eyes: Negative. Respiratory: Negative. Cardiovascular: Negative for chest pain, palpitations, orthopnea, claudication, leg swelling and PND. Gastrointestinal: Positive for abdominal pain and heartburn. Negative for blood in stool, constipation, diarrhea, melena, nausea and vomiting. Genitourinary: Negative. Musculoskeletal: Negative. Neurological: Negative. Psychiatric/Behavioral: Negative. Objective: Filed Vitals: 07/13/21 1338 BP: 137/88 Pulse: 97 Resp: 18 Temp: 98.5 ??F (36.9 ??C) TempSrc: Temporal SpO2: 99% Weight: 118.4 kg (261 lb) Height: 5' 11 (1.803 m) Body mass index is 36.4 kg/m??. General alert, cooperative, no distress HEENT [...] No rubs, clicks, or gallops. Abdomen Soft, mild tenderness in the epigastric region, non-distended. Bowel sounds normal. No masses. No [...] without long-term current use of insulin ([facility]) E11.65 250.00 TYPE 2 DIABETES MELLITUS Ambulatory Referral to Ophthalmology 790.29 glipiZIDE 5 MG tablet 2. Allergic rhinitis, unspecified seasonality, unspecified trigger J30.9 477.9 ALLERGIC RHINITIS azelastine 0.1 % nasal spray Ambulatory referral to ENT 3. Gastroesophageal reflux disease without esophagitis K21.9 530.81 GASTROESOPHAGEAL REFLUX DISEASEWITHOUT ESOPHAGITIS Ambulatory referral to Gastroenterology ( [place]) 4. Primary hypertension I10 401.9 ESSENTIAL HYPERTENSION lisinopril 20 MG tablet 5. Chronic frontal sinusitis J32.1 473.1 CHRONIC FRONTAL SINUSITIS amoxicillin- clavulanate (AUGMENTIN) 875-125 MG tablet Ambulatory referral to ENT 1. Type 2 diabetes mellitus with hyperglycemia, without long-term current use of insulin ([facility]) - Not tolerating metformin; discontinue - Ambulatory Referral to Ophthalmology - change to glipiZIDE 5 MG tablet; Take 0.5 tablets (2.5 mg total) by mouth every morning before breakfast. Dispense: 60 tablet; Refill: 1 - [facility] 2. Allergic rhinitis, unspecified seasonality, unspecified trigger - azelastine 0.1 % nasal spray; 1 spray by Nasal route 2 (two) times daily. Use in each nostril as directed Dispense: 30 mL; Refill: 1 - Ambulatory referral to ENT - continue with nasacort as directed - continue Zyrtec as needed - continue with montelukast 10 mg daily 3. Gastroesophageal reflux disease without esophagitis - slightly better but still has on going symptoms of abdominal discomfort - no red flag signs for symptoms at this time - given duration or symptom will refer to see gastroenterology - Ambulatory referral to Gastroenterology ( [place]) - continue with omeprazole 40 mg daily and sulcrafate as directed - referring to gastroenterology to evaluate for endoscopy 4. Primary hypertension -Controlled; no dose adjustments at today's visit. Medication compliance discussed. DASH diet recommended - continue lisinopril 20 MG tablet; Take 1 tablet (20 mg total) by mouth daily. Dispense: 90 tablet; Refill: 1 5. Chronic frontal sinusitis -Still has ongoing concerns; status post nasal septum repair. Still has ongoing intermittent frontal headache that is not due to migraine headaches. No need to be evaluated by gear straightener at this time given ongoing concerns - amoxicillin-clavulanate (AUGMENTIN) 875-125 MG tablet; Take 1 tablet (875 mg total) by mouth 2 (two) times daily for 5 days. Dispense: 10 tablet; Refill: 0 - Ambulatory referral to ENT Counseling given: Yes Comment: counseled by Dr [...] was at least in part performed using XZERES and there may be some inherent flaws in this tobacco sorter due to the nature of this program. Pankaj Rosenberg MD Internal Medicine [facility], [facility]. OWNED SALES MANAGER documented in this encounter Plan of Treatment Upcoming Encounters Date Type Department Care Team (Late st Contact Info) Description 05/15/2024 3:30 PM PRE OWNED SALES MANAGER Appointment [facility] [place] [address] Pankaj Rosenberg MD [address] [address] 05/25/2024 12:45 PM PRE OWNED SALES MANAGER Office Visit [facility] Physical Therapy [facility] [address] Pankaj Rosenberg MD [address] [address] Maya Magaña, [place] [address] 05/30/2024 3:40 PM PRE OWNED SALES MANAGER Office Visit [facility] Medical [facility] Multispecialty [facility] [place] - [place] [address] [address] [place] [address] Pankaj Rosenberg MD [facility] [address] 06/20/2024 3:40 PM PRE OWNED SALES MANAGER Telemedicine [facility] Medical [facility] Multispec[facility]ty [facility] [place] - [place] [address] [address] [place] [address] Pankaj Rosenberg MD [address] [address] 06/21/2024 1:00 PM PRE OWNED SALES MANAGER Office Visit [facility] - [place] [address] [place] [address] Jose Ratliff MD [address] [address] [place] [address] 03/27/2025 1:00 PM PRE OWNED SALES MANAGER Office Visit [facility] Medical [facility] Mult[facility]pecialty Care - [facility] 3 [facility] [address] [place] [phone] Bob Oneal MD 3 [facility] [place] [address] [place] [address] Scheduled Referrals Name Type Priority Associated Diagnoses Orde r Schedule Ambulatory Referral to Ophthalmology Referral Routine Type 2 diabetes mellitus with hyperglycemia, without long-term current use of insulin ([facility]) Ordered: 07/13/2021 Ambulatory referral to Gastroenterology ([facility]) Referral Routine Gastroesophageal reflux disease without esophagitis Ordered: 07/13/2021 Ambulatory referral to ENT Referral Routine Allergic rhinitis, unspecified seasonality, unspecified trigger Chronic frontal sinusitis Ordered: 07/13/2021 documented as of this encounter Visit Diagnoses Diagnosis Type 2 diabetes mellitus with hyperglycemia, without long-term current use of insulin ([facility])- Primary Allergic rhinitis, unspecified seasonality, unspecified trigger Gastroesophageal reflux disease without esophagitis Esophageal reflux Primary hypertension Unspecified essential hypertension Chronic frontal sinusitis documented in this encounter Additional Health Concerns Assessment Noted Time PHQ-9 Depression Total Score: 1 06/15/19 22 12:13 PM PRE OWNED SALES MANAGER documented as of this encounter Care Teams Assistant Account Manager Relationship Specialty Start Date End Date Pankaj Rosenberg MD [address] [address] PCP - General INTERNAL MEDICINE 06/15/21 documented as of this encounter
--- OUTSIDE RECORDS SUMMARY | 2024-05-13 10:55 | XMS_ITS | Encounter Summary ---
Author Organization [facility] Address [address] [place] [address]. [place], [place] [address] [place] [address] Care Team Providers Care Potline Monitor Name Role Phone Pankaj Rosenberg MD Primary Care Provider [phone] Encounter Details Date Type Department Care Team (Latest Contact Info) Description 06/15/2021 - 06/15/2021 11:59 PM VACUUM CLEANER OPERATOR Hospital Encounter [place] [address] [place] [address] Pankaj Rosenberg MD [address] [address] Discharge Disposition: Home or Self [...] on file Legal Sex Male 2:58 PM VACUUM CLEANER OPERATOR Gender Identity Male 07/13/2021 5:19 AM VACUUM CLEANER OPERATOR Sexual Orientation Straight 07/13/2021 5: 19 AM VACUUM CLEANER OPERATOR COVID-19 Exposure Response Date Recorded In the last month, have you been in contact with someone who was confirmed or suspected to have Coronavirus / COVID-19? No / Unsure 06/15/2021 11:05 AM VACUUM CLEANER OPERATOR documented as of this encounter Medications at Time of Discharge amLODIPine 10 MG tabletIndications:Pr imary hypertension Take 1 tablet (10 mg total) by mouth daily. 90 tablet 1 06/15/2021 2 cetirizine 5 MG chewable tabletIndications:En vironmental allergies,Allergic rhinitis, unspecified seasonality, unspecified trigger Chew 5 mg by mouth daily. 3 lisinopril 20 MG tabletIndications:Pr imary hypertension Take 1 tablet (20 mg total) by mouth daily. 90 tablet 1 06/15/2021 2 montelukast (SINGULAIR) 10 MG tabletIndications:En vironmental [...] by mouth nightly at bedtime. 04/29/2021 2 sucralfate 1 G tabletIndications:Ga stroesophageal reflux disease without esophagitis Take 1 tablet (1 g total) by mouth 3 (three) times daily before meals. 120 tablet 06/15/2021 2 triamcinolone acetonide 55 MCG/ACT nasal inhalerIndications:E nvironmental allergies,Allergic rhinitis, unspecified seasonality, unspecified trigger 03/09 3 documented as of this encounter Plan of Treatment Upcoming Encounters Date Type Department Care Team (Late st Contact Info) Description 05/15/2024 3:30 PM VACUUM CLEANER OPERATOR [facility] [place] [address] Pankaj Rosenberg MD [address] [address] 05/25/2024 12:45 PM VACUUM CLEANER OPERATOR Office Visit [facility] Physical [facility] [address] [address] Pankaj Rosenberg MD [address] [address] Maya Magaña, [place] [address] 05/30/2024 3:40 PM VACUUM CLEANER OPERATOR Office [facility] [place] [address] [address] [place] [address] Pankaj Rosenberg MD [address] [address] 06/20/2024 3:40 PM VACUUM CLEANER OPERATOR [facility] [place] [address] [address] [place] [address] Pankaj Rosenberg MD [address] [address] 06/21/2024 1:00 PM VACUUM CLEANER OPERATOR Office Visit [facility] Medical Group [facility]opedic [facility] Medicine - [place] [address] [place] [address] Jose Ratliff MD [address] [address] [place] [address] 03/27/2025 1:00 PM VACUUM CLEANER OPERATOR Office Visit [facility] Medical [facility] Multispecialty Care - [facility] [address] [facility] [address] [place] [address] Bob Oneal MD [address] [place] [address] documented as of this encounter Visit Diagnoses Not on filedocumented in this encounter Additional Health Concerns Assessment Noted Time PHQ-9 Depression Total Score: 1 06/15/19 22 12:13 PM VACUUM CLEANER OPERATOR documented as of this encounter Care Teams Potline Monitor Relationship Specialty Start Date End Date Pankaj Rosenberg MD [facility] [address] [address] PCP - General INTERNAL MEDICINE 06/15/21 documented as of this encounter
--- OUTSIDE RECORDS SUMMARY | 2024-05-13 10:56 | XMS_ITS | Encounter Summary ---
Author Organization [facility] Address [address] [place] [address]. [place], [place] [address] [place] [address] Care Team Providers Care Warper Creeler Name Role Phone Pankaj Rosenberg MD Primary Care Provider [phone] Encounter Details Date Type Department Care Team (Latest Contact Info) Description 07/02/2019 Scan HEALTH INFO SRVCS Scanned, Documents Social History Tobacco Use Types Packs/Day Years Used Date Smoking Tobacco: Never Assessed PHQ-2 Answer Date Recorded PHQ-2 Score - If the patient scores above 3, please move on to questions 3-9 1 06/15/2021 Sex and Gender Information Value Date Recorded Sex Assigned at Not on file Legal Sex Male 2:58 PM SENIOR LINUX UNIX ADMINISTRATOR Gender Identity Male 07/13/2021 5:19 AM SENIOR LINUX UNIX ADMINISTRATOR Sexual Orientation Straight 07/13/2021 5: 19 AM SENIOR LINUX UNIX ADMINISTRATOR COVID-19 Exposure Response Date Recorded In the last month, have you been in contact with someone who was confirmed or suspected to have Coronavirus / COVID-19? No / Unsure 06/15/2021 11:05 AM SENIOR LINUX UNIX ADMINISTRATOR documented as of this encounter Plan of Treatment Upcoming Encounters Date Type Department Care Team (Late st Contact Info) Description 05/15/2024 3:30 PM SENIOR LINUX UNIX ADMINISTRATOR [facility]ment [facility] [place] [address] Pankaj Rosenberg MD [address] [address] 05/25/2024 12:45 PM SENIOR LINUX UNIX ADMINISTRATOR Office Visit [facility] Physical Therapy [facility] [address] Pankaj Rosenberg MD [address] [address] Maya Magaña, PT One [facility] [place] [address] 05/30/2024 3:40 PM SENIOR LINUX UNIX ADMINISTRATOR [facility] [place] - [place] [address] [address] [place] [address] Pankaj Rosenberg MD [facility] [address] [address] 06/20/2024 3:40 PM SENIOR LINUX UNIX ADMINISTRATOR Telemedicine [facility] [place] - [place] [address] [address] [place] [address] Pankaj Rosenberg MD [address] [address] 06/21/2024 1:00 PM SENIOR LINUX UNIX ADMINISTRATOR Office Visit [facility] Orthopedic & Sports Medicine - [place] [address] [place] [address] Jose Ratliff MD [address] [place] [address] 03/27/2025 1:00 PM SENIOR LINUX UNIX ADMINISTRATOR Office Visit [facility] Multispecialty Care - [facility] 3 [facility] [address] [place] [address] Bob Oneal MD 3 [facility] [address] [place] [address] documented as of this encounter Visit Diagnoses Not on filedocumented in this encounter Care Teams Warper Creeler Relationship Specialty Start Date End Date Pankaj Rosenberg MD [address] [address] PCP - General INTERNAL MEDICINE 06/15/21 documented as of this encounter
--- OUTSIDE RECORDS SUMMARY | 2024-05-13 10:56 | XMS_ITS | Encounter Summary ---
Author Organization [facility] Address [address] [place] [address]. [place], [place] [address] [place] [address] Care Team Providers Care Eye Clinic Manager Name Role Phone Pankaj Rosenberg MD Primary Care Provider [phone] Reason for Visit * Reason Comments Procedure (SCAN) Encounter Details Date Type Department Care Team (Late Contact Info) Description 01/21/2021 Scan HEALTH INFO SRVCS Scanned, Documents Procedure (SCAN) Social History Tobacco Use Types Packs/Day Years Used Date Smoking Tobacco: Never Assessed PHQ-2 Answer Date Recorded PHQ-2 Score - If the patient scores above 3, please move on to questions 3-9 1 06/15/2021 Sex and Gender Information Value Date Recorded Sex Assigned at Not on file Legal Sex Male 2:58 PM PRN PHYSICAL THERAPIST Gender Identity Male 07/13/2021 5:19 AM PRN PHYSICAL THERAPIST Sexual Orientation Straight 07/13/2021 5: 19 AM PRN PHYSICAL THERAPIST COVID-19 Exposure Response Date Recorded In the last month, have you been in contact with someone who was confirmed or suspected to have Coronavirus / COVID-19? No / Unsure 06/15/2021 11:05 AM PRN PHYSICAL THERAPIST documented as of this encounter Plan of Treatment Upcoming Encounters Date Type Department Care Team (Late Contact Info) Description 05/15/2024 3:30 PM PRN PHYSICAL THERAPIST [facility]ment [facility] [place] [address] Pankaj Rosenberg MD 1188 [facility] [address] [place] [address] 05/25/2024 12:45 PM PRN PHYSICAL THERAPIST Office Visit [facility] Physical Therapy [address] [address] Pankaj Rosenberg MD [address] [address] Maya Magaña, [place] [address] 05/30/2024 3:40 PM PRN PHYSICAL THERAPIST [facility] [place] - [place] [address] [address] [place] [address] Pankaj Rosenberg MD [address] [address] 06/20/2024 3:40 PM PRN PHYSICAL THERAPIST [facility]icine [facility] [place] [address] [address] [place] [address] Pankaj Rosenberg MD [address] [address] 06/21/2024 1:00 PM PRN PHYSICAL THERAPIST Office Visit [facility] Medical [facility] Orthopedic & Sports Medicine - [place] [address] [place] [address] Jose Ratliff MD [address] [address] [place] [address] 03/27/2025 1:00 PM PRN PHYSICAL THERAPIST [facility] [place] - [address] [place] [address] Bob Oneal MD [address] [address] documented as of this encounter Procedures Procedure Name Priority Date/Time Associated Diagnosis Comments PROCEDURE GENERIC (SCAN ORDER) 01/21/2021 documented in this encounter Results * PROCEDURE GENERIC (01/21/2021) 01/21/2021 Narrative 01/21/2021 Ordered by an unspecified provider. us Documents Scanned SCANNING Final Result documented in this encounter Visit Diagnoses Not on filedocumented in this encounter Care Teams Eye Clinic Manager Relationship Specialty Start Date End Date Pankaj Rosenberg MD 1188 [facility] [address] [place] [address] PCP - General INTERNAL MEDICINE 06/15/21 documented as of this encounter
--- OUTSIDE RECORDS SUMMARY | 2024-05-13 10:56 | XMS_ITS | Encounter Summary ---
Author Organization [facility] Address [address] [place] [address]. [place], [place] [address] [place] [address] Care Team Providers Care Officer Lieutenant Name Role Phone Pankaj Rosenberg MD Primary Care Provider [phone] Encounter Details Date Type Department Care Team (Latest Contact Info) Description 08/22/2020 Scan HEALTH INFO SRVCS Scanned, Documents Social History Tobacco Use Types Packs/Day Years Used Date Smoking Tobacco: Never Assessed PHQ-2 Answer Date Recorded PHQ-2 Score - If the patient scores above 3, please move on to questions 3-9 1 06/15/2021 Sex and Gender Information Value Date Recorded Sex Assigned at Not on file Legal Sex Male 2:58 PM DIRECTOR OF PARKS AND RECREATION Gender Identity Male 07/13/2021 5:19 AM DIRECTOR OF PARKS AND RECREATION Sexual Orientation Straight 07/13/2021 5: 19 AM DIRECTOR OF PARKS AND RECREATION COVID-19 Exposure Response Date Recorded In the last month, have you been in contact with someone who was confirmed or suspected to have Coronavirus / COVID-19? No / Unsure 06/15/2021 11:05 AM DIRECTOR OF PARKS AND RECREATION documented as of this encounter Plan of Treatment Upcoming Encounters Date Type Department Care Team (Late st Contact Info) Description 05/15/2024 3:30 PM DIRECTOR OF PARKS AND RECREATION [facility] [address] Pankaj Rosenberg MD [address] [address] 05/25/2024 12:45 PM DIRECTOR OF PARKS AND RECREATION Office Visit [facility] Physical Therapy [address] [address] Pankaj Rosenberg MD [address] [address] Maya Magaña, PT One [facility] [place] [address] 05/30/2024 3:40 PM DIRECTOR OF PARKS AND RECREATION [facility] - [place] [address] [address] [place] [address] Pankaj [facility]berg MD [facility] [address] [address] 06/20/2024 3:40 PM DIRECTOR OF PARKS AND RECREATION [facility]icine [facility] Emergency [facility] - [place] [address] [address] [place] [address] Pankaj Rosenberg MD [address] [address] 06/21/2024 1:00 PM DIRECTOR OF PARKS AND RECREATION Office Visit [facility] Orthopedic & Sports Medicine - [place] [address] [place] [address] Jose Ratliff MD [address] [place] [address] 03/27/2025 1:00 PM DIRECTOR OF PARKS AND RECREATION Office Visit [facility] Multispecialty Care - [facility] 3 [facility] [place] [address] Bob Oneal MD 3 [facility] [address] [place] [address] documented as of this encounter Visit Diagnoses Not on filedocumented in this encounter Care Teams Officer Lieutenant Relationship Specialty Start Date End Date Pankaj Rosenberg MD [address] [address] PCP - General INTERNAL MEDICINE 06/15/21 documented as of this encounter
--- OUTSIDE RECORDS SUMMARY | 2024-05-13 10:56 | XMS_ITS | Encounter Summary ---
Author Organization [facility] Address [address] [place] [address]. [place], [place] [address] [place] [address] Care Team Providers Care Forecast Analyst Name Role Phone Pankaj Rosenberg MD Primary Care Provider [phone] Encounter Details Date Type Department Care Team (Latest Contact Info) Description 12/11/2020 Scan HEALTH INFO SRVCS Scanned, Documents Social History Tobacco Use Types Packs/Day Years Used Date Smoking Tobacco: Never Assessed PHQ-2 Answer Date Recorded PHQ-2 Score - If the patient scores above 3, please move on to questions 3-9 1 06/15/2021 Sex and Gender Information Value Date Recorded Sex Assigned at Not on file Legal Sex Male 2:58 PM GLASS CYLINDER FLANGER Gender Identity Male 07/13/2021 5:19 AM GLASS CYLINDER FLANGER Sexual Orientation Straight 07/13/2021 5: 19 AM GLASS CYLINDER FLANGER COVID-19 Exposure Response Date Recorded In the last month, have you been in contact with someone who was confirmed or suspected to have Coronavirus / COVID-19? No / Unsure 06/15/2021 11:05 AM GLASS CYLINDER FLANGER documented as of this encounter Plan of Treatment Upcoming Encounters Date Type Department Care Team (Late st Contact Info) Description 05/15/2024 3:30 PM GLASS CYLINDER FLANGER [facility]ment [facility] [place] [address] Pankaj Rosenberg MD [address] [address] 05/25/2024 12:45 PM GLASS CYLINDER FLANGER Office Visit [facility] Physical Therapy [address] [address] Pankaj Rosenberg MD [address] [address] Maya Magaña, PT One [facility] [address] 05/30/2024 3:40 PM GLASS CYLINDER FLANGER [facility] - [place] [address] [address] [place] [address] Pankaj Rosenberg MD [facility] [address] [address] 06/20/2024 3:40 PM GLASS CYLINDER FLANGER [facility]icine [facility] - [place] [address] [address] [place] [address] Pankaj Rosenberg MD [address] [address] 06/21/2024 1:00 PM GLASS CYLINDER FLANGER Office [facility] Orthopedic & Sports Medicine - [place] [address] [place] [address] Jose Ratliff MD [address] [place] [address] 03/27/2025 1:00 PM GLASS CYLINDER FLANGER Office Visit [facility] Mult[facility]ialty Care - [facility] 3 [facility] [address] [place] [address] Bob Oneal MD 3 [facility] [address] [place] [address] documented as of this encounter Visit Diagnoses Not on filedocumented in this encounter Care Teams Forecast Analyst Relationship Specialty Start Date End Date Pankaj Rosenberg MD [address] [address] PCP - General INTERNAL MEDICINE 06/15/21 documented as of this encounter
--- OUTSIDE RECORDS SUMMARY | 2024-05-13 10:56 | XMS_ITS | Encounter Summary ---
Author Organization [facility] Address [address] [place] [address]. [place], [place] [address] [place] [address] Care Team Providers Care Regional Commercial Sales Manager Name Role Phone Pankaj Rosenberg MD Primary Care Provider [phone] Reason for Visit * Reason Comments Ultrasound (SCAN) Encounter Details Date Type Department Care Team (Late st Contact Info) Description 12/17/2020 Scan HEALTH INFO SRVCS Scanned, Documents Ultrasound (SCAN) Social History Tobacco Use Types Packs/Day Years Used Date Smoking Tobacco: Never Assessed PHQ-2 Answer Date Recorded PHQ-2 Score - If the patient scores above 3, please move on to questions 3-9 1 06/15/2021 Sex and Gender Information Value Date Recorded Sex Assigned at Not on file Legal Sex Male 2:58 PM GUIDANCE AND CONTROL SYSTEM ENGINEER Gender Identity Male 07/13/2021 5:19 AM GUIDANCE AND CONTROL SYSTEM ENGINEER Sexual Orientation Straight 07/13/2021 5: 19 AM GUIDANCE AND CONTROL SYSTEM ENGINEER COVID-19 Exposure Response Date Recorded In the last month, have you been in contact with someone who was confirmed or suspected to have Coronavirus / COVID-19? No / Unsure 06/15/2021 11:05 AM GUIDANCE AND CONTROL SYSTEM ENGINEER documented as of this encounter Plan of Treatment Upcoming Encounters Date Type Department Care Team (Late Contact Info) Description 05/15/2024 3:30 PM GUIDANCE AND CONTROL SYSTEM ENGINEER [facility]ment [facility] [place] [place] [address] Pankaj Rosenberg MD 1188 [facility] [address] [place] [address] 05/25/2024 12:45 PM GUIDANCE AND CONTROL SYSTEM ENGINEER Office Visit [facility] Physical Therapy [address] [address] Pankaj Rosenberg MD [address] [address] Maya Magaña, [place] [address] 05/30/2024 3:40 PM GUIDANCE AND CONTROL SYSTEM ENGINEER [facility] [place] - [place] [address] [address] [place] [address] Pankaj Rosenberg MD [address] [address] 06/20/2024 3:40 PM GUIDANCE AND CONTROL SYSTEM ENGINEER Telemedicine [facility] [place] - [place] [address] [address] [place] [address] Pankaj Rosenberg MD [address] [address] 06/21/2024 1:00 PM GUIDANCE AND CONTROL SYSTEM ENGINEER Office Visit [facility] Medical [facility] Orthopedic & Sports Medicine - [place] [address] [place] [address] Jose Ratliff MD [address] [address] [place] [address] 03/27/2025 1:00 PM GUIDANCE AND CONTROL SYSTEM ENGINEER [facility] [place] - [address] [place] [address] Bob Oneal MD 3 [facility] [address] [address] documented as of this encounter Procedures Procedure Name Priority Date/Time Associated Diagnosis Comments ULTRASOUND GENERIC (SCAN ORDER) 12/17/2020 documented in this encounter Results * ULTRASOUND GENERIC (12/17/2020) Anatomical Region Laterality Modality Other 12/17/2020 Narrative 12/17/2020 Ordered by an unspecified provider. us Documents Scanned SCANNING Final Result documented in this encounter Visit Diagnoses Not on filedocumented in this encounter Care Teams Regional Commercial Sales Manager Relationship Specialty Start Date End Date Pankaj Rosenberg MD [address] [address] PCP - General INTERNAL MEDICINE 06/15/21 documented as of this encounter
--- OUTSIDE RECORDS SUMMARY | 2024-05-13 10:56 | XMS_ITS | Encounter Summary ---
Author Organization [facility] Address [address] [place] 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 Pt wants a referral to GI. Encounter Details Date Type Department Care Team (Latest Contact Info) Description 06/15/2021 11:20 AM AUTO TECH Office Visit [facility] [place] [address] [address] [place] [address] Pankaj Rosenberg MD [address] [place] [id number] Establish Care (Pt is here to establish care. Pt wants a referral to GI. ) Social History Tobacco Use Types Packs/Day [...] on file Legal Sex Male 2:58 PM AUTO TECH Gender Identity Male 07/13/2021 5:19 AM AUTO TECH Sexual Orientation Straight 07/13/2021 5: 19 AM AUTO TECH COVID-19 Exposure Response Date Recorded In the last month, have you been in contact with someone who was confirmed or suspected to have Coronavirus / COVID-19? No / Unsure 06/15/2021 11:05 AM AUTO TECH documented as of this encounter Last Filed Vital Signs Vital Sign Reading Time Taken Comments Blood Pressure 135/88 06/15/2021 11:23 AM AUTO TECH Pulse 94 06/15/2021 11:23 AM AUTO TECH Temperature 37.2 ??C (98.9 ??F) 06/15/2021 11:[address] Respiratory Rate 18 06/15/2021 11:23 AM AUTO TECH Oxygen Saturation 96% 06/15/2021 11:23 AM AUTO TECH Inhaled Oxygen Concentration - - Weight 119.7 kg (264 lb) 06/15/2021 11:23 AM AUTO TECH Height 180.3 cm (5' 11 ) 06/15/2021 11:23 AM AUTO TECH Body Mass Index 36.82 06/15/2021 11:23 AM AUTO TECH documented in this encounter Patient Instructions * Patient Instructions* Pankaj Rosenberg MD - 06/15/2021 11:20 AM AUTO TECH Images from the original note were not included. Follow up in 4 weeks. Patient Education Patient Education Acid Reflux and Gastroesophageal Reflux Disease in Adults The Basics Written by the doctors and editors at [employer] What is acid reflux???--??Acid reflux is when [...] process is complete. This topic retrieved from [employer] on: Apr 21, 2021. Topic 62987 Version 11.0 Release: 29.5.2 - C29.340 ?2020??[employer]. and/or its affiliates.??All rights reserved. figure 1: Upper digestive tract The upper digestive tract includes the esophagus??(the tube that connects the mouth to the stomach), the stomach, and the duodenum (the first part of the small intestine). Graphic 29914 Version 6.0 table 1: Medicines used to [...] name: Dexilant) Rabeprazole (brand name: AcipHex) Graphic 27852 Version 14.0 Consumer Information Use and Disclaimer [...] of this information is governed by the [employer] End User License Agreement, available at https://www.Local Lift/en/solutions/[employer]/about/mili.The use of [employer] content is governed by the [employer] Terms of Use. ??2020 [employer]. All rights reserved. Copyright ?2020??[employer] and/or its affiliates.??All rights reserved. Patient Education Patient Education DASH Diet About this topic DASH stands for Dietary Approaches to Stop Hypertension. The DASH diet may help you lower blood pressure. It may also help keep you from getting high blood pressure. You will eat less fat and more fiber on the DASH diet. This diet gives you more minerals that fight high blood pressure. Some nutrients in this diet are: ?? Potassium ? Acts to help you get rid of salt. This may help to lower blood pressure. ?? Calcium ? Makes blood vessels and muscles work the right way ?? Magnesium - Helps blood vessels relax ?? Fiber ? Helps you feel full. It also helps digestion. What will the results be? The DASH diet may help you: ?? Lower your blood pressure and cholesterol ?? Lower your risk for cancer, heart disease, heart attack, and stroke. It may also lower your riskfor heart failure, kidney stones, and diabetes. ?? Lose weight or keep a healthy weight What lifestyle changes are needed? ?? Add regular exercise to get the most help from this diet. ?? Try to lower stress. Find ways to relax. ?? Stop smoking. Avoid secondhand smoke. ?? Limit alcohol intake. What changes to diet are needed? ?? Know about poor eating habits. Then, you can fix them as you work with the program. ?? This diet encourages fruits and vegetables, whole grains, lean meats, healthy fats, and low-fat or fat-free dairy products. ?? This diet is lower in saturated fats, trans-fats, cholesterol, added sugars, and sodium. Who should use this diet? This eating plan is good for the whole family. It is also good for people with high blood pressure and those at risk for high blood pressure. What foods are good to eat? ?? Grains: Try to eat 6 to 8 servings of whole grain, high fiber foods each day. These are bread, cereals, brown rice, or pasta. ?? Fruits and vegetables: Eat 4 to 5 servings each day. Try to pick many kinds and colors. Fresh orfrozen are best. Look for low sodium or salt-free if you choose canned. ?? Dairy: Try to eat 2 to 3 servings of fat free and low fat milk products each day. ?? Lean meats, poultry, and seafood: Try to eat 6 servings or less of lean meats, poultry, and seafood each day. Try to choose more low fat or lean meats like chicken and turkey. Eat less red meat. Eat more fish instead. ?? Nuts, seeds, and legumes (dry beans and peas): Try to eat 4 to 5 servings each week. Try to picknuts such as almonds and walnuts, sunflower seeds, peanut butter, soy beans, lentils, kidney beans,and split peas. ?? Fats and oils: Try to eat 2 to 3 servings of fats and oils each day. Eat good fats found in fish, nuts, and avocados. Try using olive oil or vegetable oils such as canola oil. Other good oils to try are corn, safflower, sunflower, or soybean oils. Use low-sodium and low-fat salad dressing and mayonnaise. ?? Condiments: Pepper, herbs, spices, vinegar, lemon or false pass juices are great for seasoning. Be careful to choose low-sodium or salt-free products if you use broths, soups, or soy sauce. ?? Sweets: Try to eat less than 5 servings each week. Choose low-fat and trans fat-free desserts. These are things like fruit flavored gelatin, sorbet, jelly beans, jimmie crackers, animal crackers, low-fat fig bars, and meggan snaps. Eat fruit to satisfy your desire for sweets. What foods should be limited or avoided? ?? Grains: Salted breads, rolls, crackers, quick breads, self-rising flours, biscuit mixes, regularbread crumbs, instant hot cereals, commercially-prepared rice, pasta, stuffing mixes ?? Fruits and vegetables: Commercially-prepared potatoes and vegetable mixes, regular canned vegetables and juices, vegetables frozen with sauce or pickled vegetables, processed fruits with salt or sodium ?? Milk: Whole milk, malted milk, chocolate milk, buttermilk, cheese, ice cream ?? Meats and beans: Smoked, cured, salted, or canned fish; meats or poultry such as oliva, sausages, sardines; high-fat cuts of meat like beef, ayala, or pork; chicken with the skin on it ?? Fats: Cut back on solid fats like butter, lard, and margarine. Eat less food with high saturatedfat, cholesterol and total fat. ?? Condiments and snacks: Salted and canned peas, beans, and olives; salted snack foods; fried foods; soda or other sweetened drinks ?? Sweets: High-fat baked goods such as muffins, donuts, pastries, commercial baked goods, candy bars ?? If you choose to drink alcohol, limit the amount you drink. Women should have 1 drink or less per day and men should have 2 drinks or less per day. Helpful tips ?? Avoid eating canned vegetables and processed foods. These have a lot of salt in them. Look for alow-salt or low-sodium choice. ?? Try baking or broiling instead of frying food. ?? Write down the foods you eat. This will help you track what you have eaten each week. ?? When you go to a grocery store, have a list or a meal plan. Do not shop when you are hungry to avoid cravings for foods. ?? Read food labels with care. They will show you how much is in a serving. The amount is given as a percentage of the total amount you need each day. Reading labels will help you make healthy food choices. ?? Avoid fast foods. ?? Talk to your doctor or dietitian to see if you need vitamin and mineral supplements to help you balance your diet. ?? Talk to a dietitian for help. Where can I learn more? Academy of [employer] and Dietetics https://www.eatright.org/health/wellness/vopph-zbe-nlxedsccegmdom-health/dash-di nq-yhtgfzji-becoylomwlst-afflspw-wtmi-pdk-lifestyle FamilyDoctor.org http://familydoctor.org/familydoctor/en/prevention-wellness/food-nutrition/weigh t-loss/lug-bphg-gdti-wwnqwbv-zadeur-qy-fbtpbxh-otjy-uglju-pressure.html Last Reviewed Date 2020-07-28 Consumer Information Use and Disclaimer This generalized [...] or approved for treating a specific patient. [employer] and its affiliates disclaim any warranty or liability relating to this information or the use thereof. The use of this information is governed by the Terms of Use, available at https://www.ESB[employer]ech.Chinacars/en/solutions/lexicomp/about/mili Copyright Copyright ?? 2020 [employer]. and its affiliates and/or licensors. All rights reserved. TECH TECH documented in this encounter Progress Notes * Pankaj Rosenberg MD - 06/15/2021 1:17 PM CSTAssociated Problem(s): Fracture of spinous process of cervical vertebra (CMS/HCC HHS/HCC) Stable with no concerns for now. TECH * Pankaj Rosenberg MD - 06/15/2021 11:20 AM CSTSummary: New patient notes Images from the original note were not included. ANNUAL PHYSICAL NOTES Encounter Date: 06/15/2021 Chief Complaint: 26-year-old male presents for Establish Care (Pt is here to establish care. Pt wants a referral to GI. ) HPI The patient is being seen for a health maintenance evaluation and to establish care and follow-up on chronic medical issues. Patient is also concerned about gastrointestinal symptoms and would like to see gastroenterology. GERD According to patient, his symptoms started about 2 years ago. He has had substernal discomfort withbloatedness and nausea on and off for the past 2 years. Has not been on medications during this time. Previously used to take NSAIDs regularly for back pain. Was seen by gastroenterology about 4 months ago and plans for colonoscopy per patient report but this never got done. Also had right upper quadrant abdominal ultrasound done that showed a single gallbladder polyp that was stable in size. Substernal discomfort is localized. Concerns also for hepatic steatosis. Patient denies any metallic taste in the mouth. Abdominal symptoms unrelated to changes in position. Patient tells me he quit using nicotine about 10 months ago and this has aggravated his symptoms. Denies any melena but notes occasional blood around the stool. No history of inflammatory bowel disease. He is not sure if he has hemorrhoids. Patient currently very concerned and asking to see a street light wirer. Of note, patient with underlining arthrogryposis. Was born with gastroschisis per patient report. Sinus issues with septoplasty done 2020 at [facility]. Has been using nasal sprays and Zrytec for allergies. Has seen an peer financial counselor in the past and needed shots but his again has not happened as patient did not follow up. Headaches are frontal and pressure like. No history of migraine headaches.Quit chewing tobacco 10 months ago. Prior to was using tobacco for about 12 years. Hypertension Patient diagnosed about 2 years ago. Currently patient is on amlodipine 5 mg daily and lisinopril 20 mg daily. Endorses compliance to medications without any side effects. Patient tells me he was extensively worked up and he is signing a release form to get his records. Denies any concerns for chest tightness on exertion, chronic dry cough, palpitations, ankle swelling, orthopnea or paroxysmal nocturnal dyspnea. Currently does not follow routinely with cardiology. Blood pressures at today's visit is 135/88mmhg. Notable family history of hypertension and heart disease in the paternal grandparent. Father from a car accident at age 21 and so patient does not know much about him. Heis not familiar with his maternal medical history. Hyperlipidemia Currently patient is on pravastatin 40 mg daily. Did not tolerate other statin as they worsened his liver numbers . He denies any concerns for muscle cramping, joint aches or pains. Arthrogryposis Noted underlining history of arthrogryposis since . 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 Coming in today with gastrointestinal complaints. Passing flatusand having bowel movements at the moment. Symptoms as described above. Patient Active Problem List Diagnosis ??? Mixed hyperlipidemia ??? Traumatic brain injury (CMS/HCC) ??? Nonalcoholic steatohepatitis ??? Gallbladder polyp ??? Fracture of spinous process of cervical vertebra (CMS/HCC) ??? Essential hypertension, benign ??? Deviated nasal septum ??? Allergic rhinitis ??? 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 Physical Activity: Acitve lifestyle Prostate Cancer Screening: None Testicular Cancer Screening: None Colorectal Cancer Screening: None Metabolic Screening: Patient needs to be screened today. HCV Screening: Done PHQ-9 Screening Score: PHQ-9: Over the last two weeks, how often have you been bothered by any of the following problems? 06/15/2021 LITTLE INTEREST OR PLEASURE IN DOING THINGS 1-Several Days FEELING DOWN, DEPRESSSED,OR HOPELESS 0-Not at All PHQ2 DEPRESSION TOTAL SCORE 1 DEPRESSION SCREENING TOTAL SCORE 1 IF YOU CHECKED OFF ANY PROBLEMS Somewhat difficult KANCHAN-7 (Generalized Anxiety Disorder) Screening KANCHAN-7 06/15/2021 Feeling nervous, anxious and on edge 0 - not at all Not being able to stop or control worrying 0 - not at all Worrying too much about different things 0 - not at all Trouble Relaxing 0 - not at all Being so restless that it's hard to sit still 0 - not at all Becoming easily annoyed or irritable 0 - not at all Feeling afraid as if something awful might happen 0 - not at all Total Score 0 If you checked off any problems, how difficult have those problems made it for you to do your work take care of things at home or get along with other people? not difficult at all Smoking Status: History Smoking Status ??? Never Smoker Smokeless Tobacco ??? Former User ??? Types: Snuff ??? Quit date: 08/14/2020 Comment: counseled by Dr Rosenberg Patient does not meet criteria for Low Dose CT screening Sleep Apnea Risk Factors: Snoring, Fatigue, HTN, BMI>35, NC>16in and Male STOP Questionnaire STOP Bang Known/Diagnosed KARRIE Do you have a diagnosis of sleep apnea?: No STOP-Bang Questionnaire Do you snore loudly?: Yes Do you often feel tired or fatigued after your sleep?: Yes Has anyone ever observed you stop breathing in your sleep?: No Do you have or are you being treated for high blood pressure?: Yes Recent BMI (Calculated): 36.8 Is BMI greater than 35 kg/m2?: 1=Yes Age older than 50 years old?: 0=No Is your neck circumference greater than 17 inches (Male) or 16 inches (Female)?: Yes Gender - Male: 1=Yes STOP-Bang Total Score: 6 Review of Systems Constitutional: Negative. HENT: Negative. Eyes: Negative. Respiratory: Negative. Cardiovascular: Negative. Gastrointestinal: Positive for abdominal pain, blood in stool (ocassional around stool), heartburn and nausea. Negative for constipation, diarrhea, melena and vomiting. Genitourinary: Negative. Musculoskeletal: Negative. [...] file Intimate Partner Violence: Not on file Immunization History Administered Date(s) Administered ??? Dtap (Generic) 1994, 1994 ??? Dtp [...] 30 MCG/0.3 ML DOSE 08/28/2020, 09/20/2020 ??? Polio IPV (Ipol) 1994, 1994 ??? Polio Ipv (Generic) 05/05/1998 ??? Polio Opv (Generic) 1994, 07/20/1995, 05/05/1998 ??? Tdap (Generic) 08/11/2007, 08/25/2013 ??? Varicella (Varivax) 04/27/1995, 08/11/2007 Current Outpatient Medications Medication Sig Dispense Refill ??? amLODIPine 10 MG tablet Take 1 tablet (10 mg total) by mouth daily. 90 tablet 1 ??? cetirizine 5 MG chewable tablet Chew 5 mg by mouth daily. ??? lisinopril 20 MG tablet Take 1 [...] (NASACORT ALLERGY 24HR) 55 MCG/ACT nasal inhaler No current facility-administered medications for this visit. Current Outpatient Medications on File Prior to Visit Medication Sig ??? cetirizine 5 MG chewable tablet Chew 5 mg by mouth daily. ??? triamcinolone acetonide (NASACORT ALLERGY 24HR) 55 MCG/ACT nasal inhaler No current facility-administered medications on file prior to visit. No Known Allergies Objective: Filed Vitals: 06/15/21 1123 BP: 135/88 Pulse: 94 Resp: 18 Temp: 98.9 ??F (37.2 ??C) TempSrc: Temporal SpO2: 96% Weight: 119.7 kg (264 lb) Height: 5' 11 (1.803 m) Physical Exam Constitutional: General: He is not in acute distress. Appearance: He is obese. He is not ill-appearing, toxic-appearing or diaphoretic. HENT: Head: Normocephalic and atraumatic. Right Ear: Tympanic membrane, ear canal and external ear normal. There is no impacted cerumen. Left Ear: Tympanic membrane, ear canal and external ear normal. There is no impacted cerumen. Nose: No congestion or rhinorrhea. Comments: Mild deviated nasal septum Mouth/Throat: Mouth: Mucous membranes are moist. Pharynx: Oropharynx is clear. No oropharyngeal exudate or posterior oropharyngeal erythema. Eyes: General: No scleral icterus. Right eye: No discharge. Left eye: No discharge. Extraocular Movements: Extraocular movements intact. Conjunctiva/sclera: Conjunctivae normal. Pupils: Pupils are equal, round, and reactive to light. Neck: Vascular: No carotid bruit. Cardiovascular: Rate and Rhythm: Normal rate and regular rhythm. Pulses: Normal pulses. Heart sounds: Normal heart sounds. No murmur heard. No friction rub. Pulmonary: Effort: Pulmonary effort is normal. No respiratory distress. Breath sounds: Normal breath sounds. No stridor. No wheezing, rhonchi or rales. Chest: Chest wall: No tenderness. Abdominal: General: Bowel sounds are normal. There is no distension. Palpations: Abdomen is soft. There is no mass. Tenderness: There is no abdominal tenderness. There is no right CVA tenderness, left CVA tenderness, guarding or rebound. Hernia: No hernia is present. Comments: Well healed abdominal scar Musculoskeletal: General: Deformity (contracture of the elbow and wrist joints) present. No swelling, tenderness or signs of injury. Cervical back: Normal range of motion and neck supple. No rigidity or tenderness. Right lower leg: No edema. Left lower leg: No edema. Lymphadenopathy: Cervical: No cervical adenopathy. Skin: General: Skin is warm. Coloration: Skin is not jaundiced or pale. Findings: No bruising, erythema, lesion or rash. Neurological: Mental Status: He is alert. Mental status is at baseline. He is disoriented. Cranial Nerves: No cranial nerve deficit. Sensory: No sensory deficit. Motor: Weakness (in the upper extermity with with mild spasticity) present. Coordination: Coordination normal. Deep Tendon Reflexes: Reflexes normal. Psychiatric: Mood and Affect: Mood normal. Behavior: Behavior normal. Thought Content: Thought content normal. Judgment: Judgment normal. Assessment & Plan: Encounter Diagnose(s) ICD-10-CM ICD-9-CM SNOMED CT(R) 1. Annual physical exam Z V70.0 PATIENT ENCOUNTER STATUS CBC W/DIFF AUTOMATED COMPREHENSIVE METABOLIC PANEL LIPID PANEL TSH W/REFLEX HEMOGLOBIN, GLYCOSYLATED HEPATITIS C ANTIBODY URINALYSIS AUTO DIP ALBUMIN URINE RANDOM VENIPUNC ARM DRAW HEPATITIS C ANTIBODY HEMOGLOBIN, GLYCOSYLATED TSH W/REFLEX LIPID PANEL COMPREHENSIVE METABOLIC PANEL CBC W/DIFF AUTOMATED 2. Encounter for medical examination to establish care Z V70.9 PATIENT ENCOUNTER STATUS CBC W/DIFF AUTOMATED COMPREHENSIVE METABOLIC PANEL LIPID PANEL TSH W/REFLEX HEMOGLOBIN, GLYCOSYLATED HEPATITIS C ANTIBODY URINALYSIS AUTO DIP ALBUMIN URINE RANDOM VENIPUNC ARM DRAW HEPATITIS C ANTIBODY HEMOGLOBIN, GLYCOSYLATED TSH W/REFLEX LIPID PANEL COMPREHENSIVE METABOLIC PANEL CBC W/DIFF AUTOMATED 3. General medical exam Z V70.9 PATIENT ENCOUNTER STATUS CBC W/DIFF AUTOMATED COMPREHENSIVE METABOLIC PANEL LIPID PANEL TSH W/REFLEX HEMOGLOBIN, GLYCOSYLATED HEPATITIS C ANTIBODY URINALYSIS AUTO DIP ALBUMIN URINE RANDOM VENIPUNC ARM DRAW HEPATITIS C ANTIBODY HEMOGLOBIN, GLYCOSYLATED TSH W/REFLEX LIPID PANEL COMPREHENSIVE METABOLIC PANEL CBC W/DIFF AUTOMATED 4. Screening for diabetes mellitus Z13.1 V77.1 PATIENT ENCOUNTER STATUS HEMOGLOBIN, GLYCOSYLATED HEMOGLOBIN, GLYCOSYLATED 5. Screening for hypothyroidism Z13.29 V77.0 PATIENT ENCOUNTER STATUS TSH W/REFLEX TSH W/REFLEX 6. Encounter for hepatitis C screening test for low risk patient Z11.59 V73.89 PATIENT ENCOUNTER STATUS HEPATITIS C ANTIBODY HEPATITIS C ANTIBODY 7. Mixed hyperlipidemia E78.2 272.2 MIXED HYPERLIPIDEMIA pravastatin 40 MG tablet LIPID PANEL LIPID PANEL 8. Gastroesophageal reflux disease without esophagitis K21.9 530.81 GASTROESOPHAGEAL REFLUX DISEASEWITHOUT ESOPHAGITIS omeprazole 40 MG capsule sucralfate 1 G tablet 9. Chronic fatigue R53.82 780.79 FATIGUE Limited Channel Unattended (Home Study) (G0399) Limited Channel Unattended (Home Study) (G0399) 10. Primary hypertension I10 401.9 ESSENTIAL HYPERTENSION amLODIPine 10 MG tablet lisinopril 20 MG tablet CBC W/DIFF AUTOMATED COMPREHENSIVE METABOLIC PANEL LIPID PANEL TSH W/REFLEX URINALYSIS AUTO DIP ALBUMIN URINE RANDOM TSH W/REFLEX LIPID PANEL COMPREHENSIVE METABOLIC PANEL CBC W/DIFF AUTOMATED 11. Environmental allergies Z91.09 V15.09 ENVIRONMENTAL ALLERGY triamcinolone acetonide (NASACORT ALLERGY 24HR) 55 MCG/ACT nasal inhaler cetirizine 5 MG chewable tablet montelukast (SINGULAIR) 10 MG tablet 12. Suspected sleep apnea R29.818 781.99 DISEASE SUSPECTED Limited Channel Unattended (Home Study) (G0399) Limited Channel Unattended (Home Study) (G0399) 13. Arthrogryposis Q68.8 756.9 ARTHROGRYPOSIS 14. Allergic rhinitis, unspecified seasonality, unspecified trigger J30.9 477.9 ALLERGIC RHINITIS triamcinolone acetonide (NASACORT ALLERGY 24HR) 55 MCG/ACT nasal inhaler cetirizine 5 MG chewable tablet montelukast (SINGULAIR) 10 MG tablet 15. Deviated nasal septum J34.2 470 DEVIATED NASAL SEPTUM 16. Gallbladder polyp K82.4 575.6 POLYP OF GALLBLADDER 17. Nonalcoholic steatohepatitis K75.81 571.8 NONALCOHOLIC STEATOHEPATITIS COMPREHENSIVE METABOLIC PANEL COMPREHENSIVE METABOLIC PANEL 18. History of brain concussion Z87.820 V15.52 HISTORY OF CONCUSSION INJURY OF BRAIN Chuck was seen today for establish care. Diagnoses and all orders for this visit: Annual physical exam - Patient past medical, surgical, family history and social history updated. Allergies, immunizations and medications updated. Also did discuss healthy lifestyle including exercising, dietary changes and safe sexual practices as well as safe habits common to patient age group including wearing seat belt when transporting in a vehicle and limiting alcohol and avoiding smoking/second hand smoking. Patient will set up [employer]. Patient will fax over any remaining outside records that would be relevant to care provided. Getting his records from previous provider on work up to rule out secondary causes of hypertension - CBC W/DIFF AUTOMATED; Future - COMPREHENSIVE METABOLIC PANEL; Future - LIPID PANEL; Future - TSH W/REFLEX; Future - HEMOGLOBIN, GLYCOSYLATED; Future - HEPATITIS C ANTIBODY; Future - URINALYSIS AUTO DIP - ALBUMIN URINE RANDOM - VENIPUNC ARM DRAW - HEPATITIS C ANTIBODY - HEMOGLOBIN, GLYCOSYLATED - TSH W/REFLEX - LIPID PANEL - COMPREHENSIVE METABOLIC PANEL - CBC W/DIFF AUTOMATED Encounter for medical examination to establish care - Patient past medical, surgical, family history and social history updated. Allergies, immunizations and medications updated. Also did discuss healthy lifestyle including exercising, dietary changes and safe sexual practices as well as safe habits common to patient age group including wearing seat belt when transporting in a vehicle and limiting alcohol and avoiding smoking/second hand smoking. Patient will set up [employer]. Patient will fax over any remaining outside records that would be relevant to care provided. - CBC W/DIFF AUTOMATED; Future - COMPREHENSIVE METABOLIC PANEL; Future - LIPID PANEL; Future - TSH W/REFLEX; Future - HEMOGLOBIN, GLYCOSYLATED; Future - HEPATITIS C ANTIBODY; Future - URINALYSIS AUTO DIP - ALBUMIN URINE RANDOM - VENIPUNC ARM DRAW - HEPATITIS C ANTIBODY - HEMOGLOBIN, GLYCOSYLATED - TSH W/REFLEX - LIPID PANEL - COMPREHENSIVE METABOLIC PANEL - CBC W/DIFF AUTOMATED General medical exam - CBC W/DIFF AUTOMATED; Future - COMPREHENSIVE METABOLIC PANEL; Future - LIPID PANEL; Future - TSH W/REFLEX; Future - HEMOGLOBIN, GLYCOSYLATED; Future - HEPATITIS C ANTIBODY; Future - URINALYSIS AUTO DIP - ALBUMIN URINE RANDOM - VENIPUNC ARM DRAW - HEPATITIS C ANTIBODY - HEMOGLOBIN, GLYCOSYLATED - TSH W/REFLEX - LIPID PANEL - COMPREHENSIVE METABOLIC PANEL - CBC W/DIFF AUTOMATED Screening for diabetes mellitus - HEMOGLOBIN, GLYCOSYLATED; Future - HEMOGLOBIN, GLYCOSYLATED Screening for hypothyroidism - TSH W/REFLEX; Future - TSH W/REFLEX Encounter for hepatitis C screening test for low risk patient - HEPATITIS C ANTIBODY; Future - HEPATITIS C ANTIBODY Mixed hyperlipidemia - Liver enzymes seem to have gone up on other statins - Continue pravastatin 40 MG tablet; Take 1 tablet (40 mg total) by mouth nightly at bedtime for now. - Low fatty diet recommended; lifestyle modification including dietary changes to include less saturated fats, lean meat, more vegetables and exercise at least 30 min every day. - LIPID PANEL; Future - LIPID PANEL Gastroesophageal reflux disease without esophagitis - New diagnosis with recent worsening symptoms; no significant red flag signs - AVS with instruction on GERD symptoms - Start omeprazole 40 MG capsule; Take 1 capsule (40 mg total) by mouth daily. - Start sucralfate 1 G tablet; Take 1 tablet (1 g total) by mouth 3 (three) times daily before meals. - Follow up in 4 weeks Chronic fatigue - Limited Channel Unattended (Home Study) (G0399); Future - Limited Channel Unattended (Home Study) (G0399) - Work on weight loss Primary hypertension - Controlled but would prefer blood pressures </= 130/80 mmhg; DASH diet recommended, exercise 30 minutes daily for at least 5 days - Continue amLODIPine 10 MG tablet; Take 1 tablet (10 mg total) by mouth daily. - Continue lisinopril 20 MG tablet; Take 1 tablet (20 mg total) by mouth daily. - CBC W/DIFF AUTOMATED; Future - COMPREHENSIVE METABOLIC PANEL; Future - LIPID PANEL; Future - TSH W/REFLEX; Future - URINALYSIS AUTO DIP - ALBUMIN URINE RANDOM - TSH W/REFLEX - LIPID PANEL - COMPREHENSIVE METABOLIC PANEL - CBC W/DIFF AUTOMATED - Getting records for secondary work up for hypertension Environmental allergies - Uncontrolled - Continue daily Zyrtec and Nasocort - Start montelukast (SINGULAIR) 10 MG tablet; Take 1 tablet (10 mg total) by mouth nightly at bedtime. - May need to see ENT vs peer financial counselor in the future- recommendations made for allergy shots in the past but patient did not get this done Suspected sleep apnea - Limited Channel Unattended (Home Study) (G0399); Future - Limited Channel Unattended (Home Study) (G0399) - STOP Questionnaire STOP Bang Known/Diagnosed KARRIE Do you have a diagnosis of sleep apnea?: No STOP-Bang Questionnaire Do you snore loudly?: Yes Do you often feel tired or fatigued after your sleep?: Yes Has anyone ever observed you stop breathing in your sleep?: No Do you have or are you being treated for high blood pressure?: Yes Recent BMI (Calculated): 36.8 Is BMI greater than 35 kg/m2?: 1=Yes Age older than 50 years old?: 0=No Is your neck circumference greater than 17 inches (Male) or 16 inches (Female)?: Yes Gender - Male: 1=Yes STOP-Bang Total Score: 6 Arthrogryposis - Stable for now; deformity mainly in the upper limbs; 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 Deviated nasal septum - s/p repair and stable Gallbladder polyp - noted on ultrasound and noted to be stable Nonalcoholic steatohepatitis - COMPREHENSIVE METABOLIC PANEL; Future - COMPREHENSIVE METABOLIC PANEL - Work on weight loss and lifestyle modification including dietary changes to include less saturated fats, lean meat, more vegetables and exercise at least 30 min every day. History of brain concussion - Stable with no acute concerns History of cervical spine fracture - stable for now with no concerns I spent 20 minutes for her physical and 45 minutes today for EM reviewing the patient's medical record, obtaining history, performing an exam, ordering medications, tests, and/or procedures, documenting in the medical record, referring and/or communicating with other health care providers, counseling and educating the patient/family/caregiver, reviewing and communicating test results and coordination of care. DRAGON: This dictation was at least in part performed using TriCipher and there may be some inherent flaws in this cover seamer due to the nature of this program. MD Pankaj QUEVEDO MD Internal Medicine [facility], [facility]. TECH TECH TECH documented in this encounter Plan of Treatment Upcoming Encounters Date Type Department Care Team (Late st Contact Info) Description 05/15/2024 3:30 PM AUTO TECH [facility] [place] [address] Pankaj Rosenberg MD [address] [address] 05/25/2024 12:45 PM AUTO TECH Office Visit [facility] Physical Therapy [address] [place] [address] Pankaj Rosenberg MD [address] [place] [address] Maya Magaña, [place] [address] 05/30/2024 3:40 PM AUTO TECH Office Visit [facility] Medical [facility] Multispecialty Care - [address] [address] Pankaj Rosenberg MD [facility] [address] 06/20/2024 3:40 PM AUTO TECH Telemedicine [facility] Medical [facility] Multispecialty Care - [address] [address] Pankaj Rosenberg MD [address] [place] [address] 06/21/2024 1:00 PM AUTO TECH Office Visit [facility] - [place] [address] [place] [address] Jose Ratliff MD [address] [address] [place] [address] 03/27/2025 1:00 PM AUTO TECH Office Visit [facility] Multispecialty Care - [facility] [address] [place] [id number] Bob Oneal MD [address] [place] [address] documented as of this encounter Procedures Procedure Name Priority Date/Time Associated Diagnosis Comments TSH W/REFLEX Routine 06/15/2021 12:28 PM AUTO TECH Annual physical exam Encounter for medical examination to establish care General medical exam Screening for hypothyroidism Primary hypertension HEMOGLOBIN, GLYCOSYLATED Routine 06/15/2021 12:28 PM AUTO TECH Annual physical exam Encounter for medical examination to establish care General medical exam Screening for diabetes mellitus COMPREHENSIVE METABOLIC PANEL Routine 06/15/2021 12:28 PM AUTO TECH Annual physical exam Encounter for medical examination to establish care General medical exam Primary hypertension Nonalcoholic steatohepatitis LIPID PANEL Routine 06/15/2021 12:28 PM AUTO TECH Annual physical exam Encounter for medical examination to establish care General medical exam Mixed hyperlipidemia Primary hypertension HEPATITIS C ANTIBODY Routine 06/15/2021 12:28 PM AUTO TECH Annual physical exam Encounter for medical examination to establish care General medical exam Encounter for hepatitis C screening test for low risk patient CBC W/DIFF AUTOMATED Routine 06/15/2021 12:28 PM AUTO TECH Annual physical exam Encounter for medical examination to establish care General medical exam Primary hypertension VENIPUNC ARM DRAW Routine 06/15/2021 12: 17 PM AUTO TECH Annual physical exam Encounter for medical examination to establish care General medical exam URINALYSIS AUTO DIP Routine 06/15/2021 Annual physical exam Encounter for medical examination to establish care General medical exam Primary hypertension ALBUMIN URINE RANDOM W/CREATININE Routine 06/15/2021 Annual physical exam Encounter for medical examination to establish care General medical exam Primary hypertension documented in this encounter Results * Limited Channel Unattended (Home Study) (G0399) (08/06/2021 2:00 PM CDT) Narrative [facility] - 08/06/2021 2:00 PM CDT Jian Liu MD ? 08/12/2021 10:53 AM [facility] O? [place], [place] HOME SLEEP STUDY INTERPRETATION PATIENT NAME: Chuck Barlow DATE OF : 1995 DATE OF SERVICE: 08/06/2021 Ordering Phy Exam Description Pankaj Rosenberg M.D. Home Sleep Study ATTENDING PHYSICIAN: Dr. Jian Liu REFERRING PHYSICIAN: Dr. Pankaj Rosenberg SUMMARY DATA Sleep Study/ Architecture: This patient was studied using Bridg devices using 1 RIP effort belt and [...] 83 73.0 Assessment/Plan: Severe Obstructive Sleep Apnea. [place] treatment option should be discussed with the [...] exacerbate snoring and sleep-related problems, such as MAMMOGRAPHY SUPERVISOR depressants, especially at bedtime. This document was electronically signed by: Jian Liu M.D. on 08/11/2021 at 11:37 AM. us Pankaj Rosenberg MD SLEEP CENTER ORDERABLES Final Re sult [facility] * HEPATITIS C ANTIBODY (06/15/2021 12:28 PM AUTO TECH) HEPATITIS C AB NON-REACTI VE NON-REACT RACHELLE 06/15/2021 10:00 PM AUTO TECH [facility] Comment: ANTIBODIES TO HCV NOT DETECTED. DOES NOT EXCLUDE THE POSSIBILITY OF EXPOSURE TO HCV. 06/15/2021 12:2 8 PM AUTO TECH us Pankaj Rosenberg MD LABORATORY Final Result Performing Organization Address City/[facility]/ZIP Co de Phone Number [facility] [address] [place] [address], [phone] * (ABNORMAL) HEMOGLOBIN, GLYCOSYLATED (06/15/2021 12:28 PM AUTO TECH) HGB A1C 6.5(H) 3.80 - 5.60 % 06/16/2021 10:17 AM AUTO TECH [facility] ESTIMATED AVG GLUCOSE 140(H) 74 - 106 MG/DL 06/16/2021 10:17 AM AUTO TECH [facility] 06/15/2021 12:2 8 PM AUTO TECH Pankaj Rosenberg MD LABORATORY Final Result Performing Organization Address [facility] Co de Phone Number [place] [id number] [place] [address], * TSH W/REFLEX (06/15/2021 12:28 PM AUTO TECH) TSH 1.051 0.358 - 3.740 uIU/ML 06/15/2021 8:51 PM AUTO TECH [facility] 06/15/2021 12:2 8 PM AUTO TECH us Pankaj Rosenberg MD LABORATORY Final Result Performing Organization Address City/[facility] Co de Phone Number [facility] [address] [place] [address], [place] [phone] * (ABNORMAL) LIPID PANEL (06/15/2021 12:28 PM AUTO TECH) CHOLESTEROL 195 <200 MG/DL 06/15/2021 8:51 PM AUTO TECH [facility] TRIGLYCERIDES 196(H) <150 MG/DL 06/15/2021 8:51 PM [facility] HDL 40(L) >40 MG/DL 06/15/2021 8:51 PM AUTO TECH [facility] LDL-C 116(H) <100 MG/DL 06/15/2021 8:51 PM AUTO TECH [facility] VLDL CALCULATION 39(H) 5 - 28 MG/DL 06/15/2021 8:51 PM [facility] CHOL/HDL RATIO 4.9(H) 0.0 - 4.0 06/15/2021 8:51 PM AUTO TECH [facility] LDL/HDL 2.9(H) 0.41 - 2.13 06/15/2021 8:51 PM [facility] NON HDL CHOLESTEROL 155(H) <140 MG/DL 06/15/2021 8:51 PM [facility] 06/15/2021 12:2 8 PM AUTO TECH Pankaj Rosenberg MD LABORATORY Final Result [facility] [address] [place] [address], * (ABNORMAL) COMPREHENSIVE METABOLIC PANEL (06/15/2021 12:28 PM AUTO TECH) SODIUM S/P/B 135(L) 136 - 145 MMOL/L 06/15/2021 8:51 PM AUTO TECH [facility] POTASSIUM S/P/B 4.6 3.5 - 5.1 MMOL/L 06/15/2021 8:51 PM AUTO TECH [facility] CHLORIDE S/P/B 102 98 - 107 MMOL/L 06/15/2021 8:51 PM [facility] CO2 27.0 21 - 32 MMOL/L 06/15/2021 8:51 PM [facility] GLUCOSE 125(H) 70 - 99 MG/DL 06/15/2021 8:51 PM [facility] BUN 12 6 - 24 MG/DL 06/15/2021 8:51 PM [facility] CREATININE S/P/B 0.84 0.70 - 1.30 MG/DL 06/15/2021 8:51 PM [facility] CALCIUM S/P/B 9.6 8.4 - 10.5 MG/DL 06/15/2021 8:51 PM [facility] BILIRUBIN TOTAL S/P/B 0.7 0.2 - 1.0 MG/DL 06/15/2021 8:51 PM [facility] ALKALINE PHOSPHATASE S/P/B 115 45 - 115 U/L 06/15/2021 8:51 PM [facility] AST 20 15 - 37 U/L 06/15/2021 8:51 PM [facility] ALT 66(H) 16 - 63 U/L 06/15/2021 8:51 PM [facility] TOTAL PROTEIN S/P/B 8.1 6.4 - 8.2 G/DL 06/15/2021 8:51 PM [facility] ALBUMIN S/P/B 4.1 3.4 - 5.0 G/DL 06/15/2021 8:51 PM [facility] ANION GAP 6.0 5 - 15 MMOL/L 06/15/2021 8:51 PM [facility] Comment:REFERENCE RANGE NOT ESTABLISHED OSMOLALITY (CALC) 281 MOSM/KG 06/15/2021 8:51 PM [facility] Comment:REFERENCE RANGE NOT ESTABLISHED EGFR NON-AFR. AMER. >90 >90 ML/MIN/1 .73 M2 06/15/2021 8:51 PM AUTO TECH [facility] EGFR AFR. AMER. >90 >90 ML/MIN/1 .73 M2 06/15/2021 8:51 PM AUTO TECH [facility] GFR NOTES THE ESTIMATED GFR IS CALCULATED USING THE 2009 CKD-EPI EQUATION. THE FOLLOWING CATEGORIES FOR GRADING RENAL FUNCTION ARE RECOMMENDED BY THE INTERNATIONAL SOCIETY OF NEPHROLOGY (KDIGO 2012 CLINICAL PRACTICE GUIDELINE). 06/15/2021 8:51 PM AUTO TECH [facility] [place] Comment: G1,NORMAL OR HIGH: >89 ml/min/1.73 m2 G2,MILDLY DECREASED: 60-89 ml/min/1.73 m2 G3A,MILDLY TO MODERATELY DECREASED: 45-59 ml/min/1.73 m2 G3B,MODERATELY TO SEVERELY DECREASED: 30-44 ml/min/1.73 m2 G4,SEVERELY DECREASED: 15-29 ml/min/1.73 m2 G5,KIDNEY FAILURE: <15 ml/min/1.73 m2 06/15/2021 12:2 8 PM AUTO TECH us Pankaj Rosenberg MD LABORATORY Final Result [facility] [address] [place] [address], * (ABNORMAL) CBC W/DIFF AUTOMATED (06/15/2021 12:28 PM AUTO TECH) WBC 10.3 4.0 - 10.8 x10'3/uL 06/15/2021 7:32 PM AUTO TECH [facility] RBC 5.22 4.50 - 6.10 x10'6/uL 06/15/2021 7:32 PM AUTO TECH [facility] HGB 15.0 13.0 - 18.0 G/DL 06/15/2021 7:32 PM AUTO TECH [facility] HCT 44.8 37.0 - 52.0 % 06/15/2021 7:32 PM AUTO TECH [facility] MCV 85.8 78.0 - 100.0 FL 06/15/2021 7:32 PM [facility] MCH 28.7 27.0 - 31.0 PG 06/15/2021 7:32 PM [facility] MCHC 33.5 33.0 - 36.0 G/DL 06/15/2021 7:32 PM [facility] RDW 12.7 11.5 - 14.5 % 06/15/2021 7:32 PM [facility] PLT 370(H) 150 - 350 x10'3/uL 06/15/2021 7:32 PM [facility] MPV 10.8(H) 7.4 - 10.4 FL 06/15/2021 7:32 PM [facility] DIFFERENTIAL TYPE AUTOMATED DIFFERENTIAL 06/15/2021 7:32 PM [facility] NEUTROPHILS % 65.4 % 06/15/2021 7:32 PM [facility] LYMPHOCYTES % 24.8 % 06/15/2021 7:32 PM [facility] MONOCYTES % 6.9 % 06/15/2021 7:32 PM [facility] EOSINOPHILS % 1.4 % 06/15/2021 7:32 PM [facility] BASOPHILS % 0.5 % 06/15/2021 7:32 PM [facility] IMMATURE GRANS % 1.0 % 06/15/2021 7:32 PM [facility] ABS. NEUTROPHILS 6.76 1.60 - 8.30 x10'3/uL 06/15/2021 7:32 PM [facility] ABS. LYMPHOCYTES 2.56 0.80 - 4.70 x10'3/uL 06/15/2021 7:32 PM [facility] ABS. MONOCYTES 0.71 0.00 - 1.50 x10'3/uL 06/15/2021 7:32 PM AUTO TECH [facility] ABS. EOSINOPHILS 0.14 0.00 - 0.40 x10'3/uL 06/15/2021 7:32 PM AUTO TECH [facility] ABS. BASOPHILS 0.05 0.00 - 0.20 x10'3/uL 06/15/2021 7:32 PM AUTO TECH [facility] ABS. IMMATURE GRANULOCYTES 0.10(H) 0.00 - 0.03 x10'3/uL 06/15/2021 7:32 PM AUTO TECH [facility] 06/15/2021 12:2 8 PM AUTO TECH us Pankaj Rosenberg MD LABORATORY Final Result Performing Organization Address [facility]/ZIP Co de Phone Number [facility] [place] [place] [address] [place] [address], * ALBUMIN URINE RANDOM (06/15/2021) MICROALBUMIN (U) 30 MG- [address], [place] CREATININE RANDOM (U) 300 MG[address], [place] MICROALB/CREAT <30 MG-[address], [place] URINE SPECIMEN / Unknown 06/15/2021 us Pankaj Rosenberg MD URINE ORDERABLES Final Result Performing Organization Address City/[facility]/ZIP Co de Phone Number [id number], [place] [address] [place] [address], [place] [phone] * URINALYSIS AUTO DIP (06/15/2021) COLOR (U) YELLOW MG[address], [place] TRANSPARENCY CLEAR [address], [place] GLUCOSE (U) NEGATIVE NEGATIVE MG/DL [address], [place] BILIRUBIN (U) NEGATIVE NEGATIVE MG-[address], [place] KETONES MG/DL (U) NEGATIVE NEGATIVE MG/DL [address], [place] SPECIFIC GRAVITY (U) >=1.030 1.001 - 1.035 [address], [place] BLOOD (U) NEGATIVE NEGATIVE [address], [place] U PH 6.0 5.0 - 9.0 [address], [place] PROTEIN (U) NEGATIVE NEGATIVE mg/dL MG-[address], [place] UROBILINOGEN 0.2 0.2 - 1.0 EU/dL = mg/dL MG-[address], [place] NITRITES NEGATIVE NEGATIVE MG/DL MG[address], [place] LEUKOCYTES (U) NEGATIVE NEGATIVE MG-[address], [place] URINE SPECIMEN OBTAINED BY CLEAN CATCH PROCEDURE / Unknown 06/15/2021 Pankaj Rosenberg MD URINE ORDERABLES Final Result Performing Organization Address City/State/[facility] Co de Phone Number [id number], [place] [address] [facility] [address] [place] [address], documented in this encounter Visit Diagnoses Diagnosis Annual physical exam- Primary Routine general medical examination at a health care facility Encounter for medical examination to establish care General medical exam Unspecified general medical examination Screening for diabetes mellitus Screening for hypothyroidism Screening for thyroid disorder Encounter for hepatitis C screening test for low risk patient Mixed hyperlipidemia Gastroesophageal reflux disease without esophagitis Esophageal reflux Chronic fatigue Other malaise and fatigue Primary hypertension Unspecified essential hypertension Environmental allergies Allergic rhinitis, cause unspecified Suspected sleep apnea Arthrogryposis Other specific muscle disorders Allergic rhinitis, unspecified seasonality, unspecified trigger Deviated nasal septum Gallbladder polyp Cholesterolosis of gallbladder Nonalcoholic steatohepatitis Other chronic nonalcoholic liver disease History of brain concussion Closed fracture of spinous process of cervical vertebra, sequela documented in this encounter Additional Health Concerns Assessment Noted Time PHQ-9 Depression Total Score: 1 06/15/19 22 12:13 PM AUTO TECH documented as of this encounter Care Teams Kiln Door Repairer Relationship Specialty Start Date End Date Pankaj Rosenberg MD [address] [facility] [address] [place] [address] PCP - General INTERNAL MEDICINE 06/15/21 documented as of this encounter
--- OUTSIDE RECORDS SUMMARY | 2024-05-13 10:56 | XMS_ITS | Encounter Summary ---
Author Organization [facility] Address [address] [place] [address]. [place], [place] [address] [place] [address] Care Team Providers Care Filter Washer And Presser Name Role Phone Pankaj Rosenberg MD Primary Care Provider [phone] Encounter Details Date Type Department Care Team (Latest Contact Info) Description 06/15/2021 Travel Social History Tobacco Use Types Packs/Day [...] on file Legal Sex Male 2:58 PM ROTARY PUMP OPERATOR Gender Identity Male 07/13/2021 5:19 AM ROTARY PUMP OPERATOR Sexual Orientation Straight 07/13/2021 5: 19 AM ROTARY PUMP OPERATOR COVID-19 Exposure Response Date Recorded In the last month, have you been in contact with someone who was confirmed or suspected to have Coronavirus / COVID-19? No / Unsure 06/15/2021 11:05 AM ROTARY PUMP OPERATOR documented as of this encounter Plan of Treatment Upcoming Encounters Date Type Department Care Team (Late st Contact Info) Description 05/15/2024 3:30 PM ROTARY PUMP OPERATOR Appointment [place] [address] Pankaj Rosenberg MD [address] [address] 05/25/2024 12:45 PM ROTARY PUMP OPERATOR Office Visit [facility] Physical Therapy [facility] [address] Pankaj Rosenberg MD [address] [facility] [address] [place] [address] Maya [place]aña, [place] [address] 05/30/2024 3:40 PM ROTARY PUMP OPERATOR [facility] [place] [address] [address] [address] [place] [address] Pankaj Rosenberg MD [address] [address] 06/20/2024 3:40 PM ROTARY PUMP OPERATOR [facility] [place] [address] [address] [place] [address] Pankaj Rosenberg MD [address] [address] 06/21/2024 1:00 PM ROTARY PUMP OPERATOR Office Visit [facility] Medical Group Orthopedic & Sports Medicine - [place] [address] [place] [address] Jose Ratliff MD [id number] [place] [address] 03/27/2025 1:00 PM ROTARY PUMP OPERATOR Office Visit [facility] Mult[facility] - [facility] [address] [facility] [address] [place] [id number] Bob Oneal MD [address] [place] [address] documented as of this encounter Visit Diagnoses Not on filedocumented in this encounter Additional Health Concerns Assessment Noted Time PHQ-9 Depression Total Score: 1 06/15/19 22 12:13 PM ROTARY PUMP OPERATOR documented as of this encounter Care Teams Filter Washer And Presser Relationship Specialty Start Date End Date Pankaj Rosenberg MD [facility] [address] PCP - General INTERNAL MEDICINE 06/15/21 documented as of this encounter
--- OUTSIDE RECORDS SUMMARY | 2024-05-13 10:56 | XMS_ITS | Encounter Summary ---
Author Organization [facility] Address [address] [place] [address]. [place], [place] [address] [place] [address] Care Team Providers Care Pension Fund Manager Name Role Phone Pankaj Rosenberg MD Primary Care Provider [phone] Encounter Details Date Type Department Care Team (Latest Contact Info) Description 11/12/2019 Scan HEALTH INFO SRVCS Scanned, Documents Social History Tobacco Use Types Packs/Day Years Used Date Smoking Tobacco: Never Assessed PHQ-2 Answer Date Recorded PHQ-2 Score - If the patient scores above 3, please move on to questions 3-9 1 06/15/2021 Sex and Gender Information Value Date Recorded Sex Assigned at Not on file Legal Sex Male 2:58 PM BIO MEDICAL TECHNICIAN Gender Identity Male 07/13/2021 5:19 AM BIO MEDICAL TECHNICIAN Sexual Orientation Straight 07/13/2021 5: 19 AM BIO MEDICAL TECHNICIAN COVID-19 Exposure Response Date Recorded In the last month, have you been in contact with someone who was confirmed or suspected to have Coronavirus / COVID-19? No / Unsure 06/15/2021 11:05 AM BIO MEDICAL TECHNICIAN documented as of this encounter Plan of Treatment Upcoming Encounters Date Type Department Care Team (Late st Contact Info) Description 05/15/2024 3:30 PM BIO MEDICAL TECHNICIAN [facility]ointment [facility] [place] [address] Pankaj Rosenberg MD [address] [address] 05/25/2024 12:45 PM BIO MEDICAL TECHNICIAN Office Visit [facility] Physical Therapy [facility] [address] Pankaj Rosenberg MD [address] [address] Maya Magaña, PT One [facility] [place] [address] 05/30/2024 3:40 PM BIO MEDICAL TECHNICIAN [facility] [place] [address] [address] [place] [address] Pankaj Rosenberg MD [facility] [address] [address] 06/20/2024 3:40 PM BIO MEDICAL TECHNICIAN [facility] [place] [address] [address] [place] [address] Pankaj Rosenberg MD [address] [address] 06/21/2024 1:00 PM BIO MEDICAL TECHNICIAN Office Visit [facility] - [place] [address] [place] [address] Jose Ratliff MD [address] [place] [address] 03/27/2025 1:00 PM BIO MEDICAL TECHNICIAN Office Visit [facility] - [facility] [address] [facility] [place] [address] Bob Oneal MD 3 [facility] [address] [place] [address] documented as of this encounter Visit Diagnoses Not on filedocumented in this encounter Care Teams Pension Fund Manager Relationship Specialty Start Date End Date Pankaj Rosenberg MD [address] [address] PCP - General INTERNAL MEDICINE 06/15/21 documented as of this encounter
--- OUTSIDE RECORDS SUMMARY | 2024-05-13 10:56 | XMS_ITS | Encounter Summary ---
Author Organization [facility] Address [address] [place] [address]. [place], [place] [address] [place] [address] Care Team Providers Care Can Maker Name Role Phone Pankaj Rosenberg MD Primary Care Provider [phone] Encounter Details Date Type Department Care Team (Latest Contact Info) Description 06/28/2019 Scan HEALTH INFO SRVCS Scanned, Documents Social History Tobacco Use Types Packs/Day Years Used Date Smoking Tobacco: Never Assessed PHQ-2 Answer Date Recorded PHQ-2 Score - If the patient scores above 3, please move on to questions 3-9 1 06/15/2021 Sex and Gender Information Value Date Recorded Sex Assigned at Not on file Legal Sex Male 2:58 PM ELECTRICAL CONTROLS TECHNICIAN Gender Identity Male 07/13/2021 5:19 AM ELECTRICAL CONTROLS TECHNICIAN Sexual Orientation Straight 07/13/2021 5: 19 AM ELECTRICAL CONTROLS TECHNICIAN COVID-19 Exposure Response Date Recorded In the last month, have you been in contact with someone who was confirmed or suspected to have Coronavirus / COVID-19? No / Unsure 06/15/2021 11:05 AM ELECTRICAL CONTROLS TECHNICIAN documented as of this encounter Plan of Treatment Upcoming Encounters Date Type Department Care Team (Late st Contact Info) Description 05/15/2024 3:30 PM ELECTRICAL CONTROLS TECHNICIAN [facility]ment [facility] [place] [address] Pankaj Rosenberg MD [address] [address] 05/25/2024 12:45 PM ELECTRICAL CONTROLS TECHNICIAN Office Visit [facility] Physical Therapy [facility] [address] Pankaj Rosenberg MD [address] [address] Maya Magaña, PT One [facility] [place] [address] 05/30/2024 3:40 PM ELECTRICAL CONTROLS TECHNICIAN [facility] [facility] [place] [address] [address] [place] [address] Pankaj Rosenberg MD [facility] [address] 06/20/2024 3:40 PM ELECTRICAL CONTROLS TECHNICIAN [facility] [facility] [place] [address] [address] [place] [address] Pankaj Rosenberg MD [address] [address] 06/21/2024 1:00 PM ELECTRICAL CONTROLS TECHNICIAN Office Visit [facility] - [place] [address] [place] [address] Jose Ratliff MD [address] [place] [address] 03/27/2025 1:00 PM ELECTRICAL CONTROLS TECHNICIAN Office Visit [facility] - [facility] 3 [facility] [address] [place] [address] Bob Oneal MD 3 [facility] [address] [place] [address] documented as of this encounter Visit Diagnoses Not on filedocumented in this encounter Care Teams Can Maker Relationship Specialty Start Date End Date Pankaj Rosenberg MD [address] [address] PCP - General INTERNAL MEDICINE 06/15/21 documented as of this encounter
--- OUTSIDE RECORDS SUMMARY | 2024-05-13 10:57 | XMS_ITS | Encounter Summary ---
Author Organization [facility] Address [address] [place] [address]. [place], [place] [address] [place] [address] Care Team Providers Care Truck Unloader Name Role Phone Pankaj Rosenberg MD Primary Care Provider [phone] Encounter Details Date Type Department Care Team (Latest Contact Info) Description 05/31/2019 Scan HEALTH INFO SRVCS Scanned, Documents Social History Tobacco Use Types Packs/Day Years Used Date Smoking Tobacco: Never Assessed PHQ-2 Answer Date Recorded PHQ-2 Score - If the patient scores above 3, please move on to questions 3-9 1 06/15/2021 Sex and Gender Information Value Date Recorded Sex Assigned at Not on file Legal Sex Male 2:58 PM GRAPHIC ARTS TECHNICIAN Gender Identity Male 07/13/2021 5:19 AM GRAPHIC ARTS TECHNICIAN Sexual Orientation Straight 07/13/2021 5: 19 AM GRAPHIC ARTS TECHNICIAN COVID-19 Exposure Response Date Recorded In the last month, have you been in contact with someone who was confirmed or suspected to have Coronavirus / COVID-19? No / Unsure 06/15/2021 11:05 AM GRAPHIC ARTS TECHNICIAN documented as of this encounter Plan of Treatment Upcoming Encounters Date Type Department Care Team (Late st Contact Info) Description 05/15/2024 3:30 PM GRAPHIC ARTS TECHNICIAN [facility]ment [facility] [place] [address] Pankaj Rosenberg MD [address] [address] 05/25/2024 12:45 PM GRAPHIC ARTS TECHNICIAN Office Visit [facility] Physical Therapy [facility] [address] Pankaj Rosenberg MD [address] [address] Maya Magaña, PT One [facility] [place] [address] 05/30/2024 3:40 PM GRAPHIC ARTS TECHNICIAN [facility] [facility] [place] [address] [address] [place] [address] Pankaj Rosenberg MD [facility] [address] [address] 06/20/2024 3:40 PM GRAPHIC ARTS TECHNICIAN [facility] [place] [facility] [place] [address] [address] [place] [address] Pankaj Rosenberg MD [address] [address] 06/21/2024 1:00 PM GRAPHIC ARTS TECHNICIAN Office Visit [facility] - [place] [address] [place] [address] Jose Ratliff MD [address] [place] [address] 03/27/2025 1:00 PM GRAPHIC ARTS TECHNICIAN Office Visit [facility] - [facility] 3 [facility] [address] [place] [address] Bob Oneal MD 3 [facility] [address] [place] [address] documented as of this encounter Visit Diagnoses Not on filedocumented in this encounter Care Teams Truck Unloader Relationship Specialty Start Date End Date Pankaj Rosenberg MD [address] [address] PCP - General INTERNAL MEDICINE 06/15/21 documented as of this encounter
--- OUTSIDE RECORDS SUMMARY | 2024-05-13 11:06 | XMS_ITS | Clinical Summary ---
Author Organization [facility] Address [address] [place] [address] Phone Care Team Providers Care Dehydrogenation Operator Name Role Phone Charles Vogel MD Primary Care Provider [phone] Allergies No known active allergies Medications lisinopril (PRINIVIL, ZESTRIL) 20 MG TabletIndicatio ns:Essential hypertension, benign Take 1 Tablet by mouth daily. 90 Tablet 1 01/05/2021 Active amLODIPine (NORVASC) 5 MG TabletIndicatio ns:Essential hypertension, benign Take 1 Tablet by mouth 2 times daily. 180 Tablet 1 01/05/2021 Active SALINE NASAL SPRAY NA by Nasal route. Active pravastatin (PRAVACHOL) 40 MG Tablet TAKE 1 TABLET BY MOUTH EVERY EVENING 30 Tablet 3 04/29/2021 Active Active Problems Problem Noted Date Diagnosed Date Essential hypertension, benign 12/11/2020 Mixed hyperlipidemia 12/11/2020 Gallbladder polyp 12/11/2020 Nonalcoholic steatohepatitis 12/11/2020 Immunizations Immunization Administration Dates Next Due Covid-19, Mrna, Lnp-s, Pf, 3 0 Mcg/0.3 Ml Dose ([place]) 09/20/2020,08/28/2020 DTAP VACCINE, UNSPECIFIED FORMULATION 1994 ,1994 DTP Vaccine 05/05/1998,07/20/1995,1994 Hepatitis A Vaccine, Pediatric/adolescent, 2 Dose Schedule 04/11/2013 Hepatitis A Vaccine,unspecif ied Formulation 08/11/2007 Hepatitis B Vaccine, Pediatric/adolescent 1994,1994,1994 Hib Vaccine,unspecified Formulation 10/1995,1994,1994,07/02 Human Papillomavirus Vaccine (HPV), quadrivalent 04/11/2013 Inactivated Polio Vaccine 1994,1994 Influenza Vaccine 02/28/2012 Influenza Vaccine, Quadrivalent, PF 04/03/2013 Influenza Vaccine,unspecifie d Formulation 03/28/2000,03/27/1999,02/20/1999 MMR Vaccine 05/05/1998,04/27/1995 Meningococcal Vaccine 04/11/2013 OPV 1994 Polio Vaccine,unspecified Formulation 05/05/1998 ,07/20/1995 TDAP Vaccine 08/11/2007 Varicella Vaccine Live 08/11/2007,04/27/1995 Family History Medical History Relation Name Comments No Known Problems Mother Relation Name Status Comments Father Mother Alive Social History Tobacco Use Types Packs/Day Years Used Date Smoking Tobacco: Former Cigarettes Q uit: 08/11/2020 Smokeless Tobacco: Former Chew Tobacco Cessation:Counseling Given: No Alcohol Use Standard Drinks/Week Comments Yes 0 (1 standard drink = 0.6 oz pur e alcohol) couple times monthly PHQ-2 Answer Date Recorded Total Score - Questions 1-9 0 11/14 Sexually Active Control Partners Comments Yes Sex and Gender Information Value Date Recorded Sex Assigned at Not on file Legal Sex Male 7:15 PM CDT Gender Identity Not on file Sexual Orientation Not on file Last Filed Vital Signs Vital Sign Reading Time Taken Comments Blood Pressure 132/70 01/15/2021 10:17 AM CDT Pulse 92 01/15/2021 10:17 AM CDT Temperature 37.2 ??C (99 ??F) 01/15/2021 10:17 AM CDT Respiratory Rate 20 01/15/2021 10:17 AM CDT Oxygen Saturation 98% 01/15/2021 10:17 AM CDT Inhaled Oxygen Concentration - - Weight 115.2 kg (254 lb) 01/15/2021 10:17 AM CDT Height 180.3 cm (5' 11 ) 01/15/2021 10:17 AM CDT Body Mass Index 35.43 01/15/2021 10:17 AM CDT Plan of Treatment Health Maintenance Due Date Last Done Comments DTaP/Tdap/Td Immunization (7 - Td or Tdap) 08/10/2017 08/11/2007, 05/05/1998, 07/20/1995, Additional history exists Influenza Immunization (#1) 01/15/202403/16, 02/28/2012, 03/28/2000, Additional history exists SARS-COV-2 Immunization ( season) 2024 09/20/2020, 08/28/2020 Respiratory Syncytial Virus (RSV) Immunization (Adult) (1 - 1-dose 75+ series) 2069 Hepatitis B Immunization Completed 995, 1994, 1994 Human Papillomavirus (HPV) Immunization Discontinued 04/11/2013 Meningococcal Immunization (ACWY) Completed 04/11/2013 Hepatitis C Virus (HCV) Screening Completed 06/18/2020 Pneumococcal Immunization Combined Aged Out No longer eligible based on patient's age to complete this topic Rotavirus Immunization Aged Out No lo nger eligible based on patient's age to complete this topic Procedures Procedure Name Priority Date/Time Associated Diagnosis Comments HEPATITIS C ANTIBODY Routine 06/18/2020 8:37 AM COMPETITIVE INTELLIGENCE ANALYST Abnormal liver function test from Last 3 Months or Most Recently Relevant to Health Maintenance Results * HEPATITIS C ANTIBODY (06/18/2020 8:37 AM COMPETITIVE INTELLIGENCE ANALYST) hepatitis C antibody 0.13 <1 S/CO [facility] ARCH [id number] B 06/18/2020 6:45 PM COMPETITIVE INTELLIGENCE ANALYST [facility] Comment: Signal/Cutoff ratio ??< 0.79 is Nondetected Signal/Cutoff ratio 0.80-0.99 is Grayzone Signal/Cutoff ratio > 0.99 is Detected Supplemental assays are recommended if signal/cutoff ratio is >/=1.00. ??Signal/cutoff ratio result >/= 5.00 is 97% predictive of positivity for recombinant immunoblot assay (RIBA) and will be reported to the [place] Department of Public Health as required. Blood Venipuncture / Unknown 06/18/2020 8:37 AM COMPETITIVE INTELLIGENCE ANALYST 06/18/2020 9:07 AM COMPETITIVE INTELLIGENCE ANALYST us Charles Vogel MD CHEMISTRY ORDERABLES Final Result [facility] [address] [place] [address], from Last 3 Months or Most Recently Relevant to Health Maintenance Insurance [facility] Care Teams Dehydrogenation Operator Relationship Specialty Start Date End Date Charles Vogel MD [address] [place] [address] PCP - General Internal Medicine 02/21/19
--- OUTSIDE RECORDS SUMMARY | 2024-05-13 11:07 | XMS_ITS | Encounter Summary ---
Author Organization [facility] Address [address] [place] [address] Phone Care Team Providers Care Senior Analytic Consultant Name Role Phone Charles Vogel MD Primary Care Provider [phone]- [phone] Reason for Referral * Other (Routine) - Canceled Specialty Diagnoses / Procedures Referred By Contac t Referred To Contact Gastroenterology Diagnoses Stomach pain Nausea Constipation, unspecified constipation type Procedures GASTRO PROCEDURE Sonu Malave MD Referral ID Status Reason Start Date Expiration Date V isits Requested Visits Authorized [id number] Canceled 01/15/2021 1 1 * Other (Routine) - Canceled Specialty Diagnoses / Procedures Referred By Contac t Referred To Contact Gastroenterology Diagnoses Stomach pain Nausea Procedures GASTRO PROCEDURE Sonu Malave MD Referral ID Status Reason Start Date Expiration Date V isits Requested Visits Authorized [id number] Canceled 01/15/2021 1 1 * Radiology Services (Routine) - Closed Specialty Diagnoses / Procedures Referred By Contac t Referred To Contact Radiology Diagnoses Stomach pain Gall bladder polyp Nausea Constipation, unspecified constipation type Procedures NM HEPATOBILIARY WITH PHARM Sonu Malave MD Referral ID Status Reason Start Date Expiration Date Visits Re quested Visits Authorized [id number] Closed 01/15/2021 1 1 Reason for Visit * Reason Comments New Patient Abdominal Pain Constipation Nausea Anorexia Gas * Consult, Test & Initiate Treatment (Less Than 2 Weeks) - Closed Specialty Diagnoses / Procedures Referred By Contact Referred To Contact Gastroenterology Diagnoses Stomach pain Charles Vogel MD [address] [place] [address] Phone: tel: fax: [facility] Gastroenterology [facility] [address] [place] [address] Phone: tel: fax: Referral ID Status Reason Start Date Expiration Date Visits Re quested Visits Authorized [id number] Closed 01/05/2021 1 1 Encounter Details Date Type Department Care Team (Late st Contact Info) Description 01/15/2021 10:15 AM CDT Office Visit [facility] [address] [place] [address] Charles Vogel MD [address] [place] [address] Sonu Malave MD Nausea (Primary Dx); Stomach pain; Gall bladder polyp; Constipation, unspecified constipation type Discharge Disposition: Discharged to home or Selfcare Social History Tobacco Use Types Packs/Day Years [...] on file Sexual Orientation Not on file COVID-19 Exposure Response Date Recorded In the last month, have you been in contact with someone who was confirmed or suspected to have Coronavirus / COVID-19? No / Unsure 01/15/2021 10:14 AM CDT documented as of this encounter [...] Mass Index 35.43 01/15/2021 10:17 AM CDT documented in this encounter Progress Notes * Sonu Malave MD - 01/15/2021 10:15 AM CDT [facility] GASTROENTEROLOGY CONSULT/H&P NAME: Chuck Barlow DATE 1995 DATE OF CONSULT: 01/15/2021 Very pleasant patient was seen at the request of Dr. RODRIGUEZ and with the patient's permission. The patient was examined and the chart was reviewed. HISTORY: MIDLINE PERIUMBILICAL PAIN, CONSTIPATION FOR ONE YEAR, ABNORMAL RUQ ULTRASOUND WITH GALLBLADDER ULTRASOUND. SICK AFTER MEALS AND AWAKENED AT NIGHT WITH PAIN. ALLERGIES: No Known Allergies MEDICATIONS (Not in a hospital admission) PROBLEM LIST Patient Active Problem List Diagnosis ??? Essential hypertension, benign ??? Mixed hyperlipidemia ??? Gallbladder polyp ??? Nonalcoholic steatohepatitis MEDICAL HISTORY: Past Medical History Positives Diagnosis Date ??? Gall bladder polyp ??? Gastroschisis ??? High cholesterol ??? Hypertension SURGICAL HISTORY: Past Surgical History: Procedure Laterality Date ??? APPENDECTOMY ??? SINUS SURGERY FAMILY HISTORY: Family History Problem Relation Age of Onset ??? No Known Problems Mother SOCIAL HISTORY: Social History Socioeconomic History ??? Marital status: Single Spouse name: Not on file ??? Number of children: Not on file ??? Years of education: Not on file ??? Highest education level: Not on file Occupational History ??? Not on file Tobacco Use ??? Smoking status: Former Smoker Packs/day: 1.00 Types: Cigarettes Quit date: 08/11/2020 Years since quittin.4 ??? Smokeless tobacco: Former User Types: Chew Vaping Use ??? Vaping Use: Never used Substance and Sexual Activity ??? Alcohol use: Yes Comment: couple times monthly ??? Drug use: Never ??? Sexual activity: Yes Other Topics Concern ??? Not on file Social History Narrative ??? Not on file Social Determinants of Health Social determinant risk not applicable to this patient. OBSTETRICS HISTORY: REVIEW OF RESULTS: LAB REVIEWED: No results found for: SODIUM, POTASSIUM, CHLORIDE, CO2VEN, ANIONGAP, GLUCOSE, BUN, CREATININE, BCRATIO8, TOTALPROTEIN, ALBUMIN, AGRATIO, CALCIUM, TBIL, SGOTAST, SGPTALT, ALKALINEPHO, GFRNA, GFRA No results found for: SODIUM, POTASSIUM, CHLORIDE, CO2VEN, ANIONGAP, GLUCOSE, BUN, CREATININE, BCRATIO8, TOTALPROTEIN, ALBUMIN, AGRATIO, CALCIUM, TBIL, SGOTAST, SGPTALT, ALKALINEPHO, GFRNA, GFRAT-1 No results for input(s): ALBUMIN, TBIL, BILIRUBIN, ALKALINEPHO, SGOTAST, SGPTALT, TOTALPROTEIN in the last 72 hours. No results found for: WBC, HEMOGLOBIN, HEMATOCRIT, PLATELETCNT, MCV LAST IMAGING: US LIVER, PANCREAS AND GALLBLADDER Narrative: EXAM DESCRIPTION: US ABDOMEN LIMITED LEVEL 3 THREE ORGAN REASON FOR STUDY: History of gallbladder polyp for 1 year follow-up. TECHNIQUE: Ultrasound of the right upper quadrant of the abdomen was performed with grayscale and color doppler. COMPARISON: Ultrasound dated June 18, 2020 FINDINGS: PANCREAS: Visualized portions of the pancreas are within normal limits. Portions of the pancreatic body and tail are obscured due to bowel gas. LIVER: The liver appears normal in echotexture and echogenicity. No focal lesion identified. The main portal vein is patent with antegrade flow. GALLBLADDER: Within the gallbladder there is a 0.6 cm echogenic nonmobile nonshadowing structure compatible with a polyp. No cholelithiasis. No gallbladder wall thickening or pericholecystic fluid. No positive sonographic Ashton's sign reported. BILIARY: There is no intrahepatic or extrahepatic biliary ductal dilatation. Common bile duct measures 0.5 cm in diameter. RIGHT KIDNEY: Normal size. Normal echogenicity. No solid mass or cyst. No hydronephrosis. Measures 10.5 cm in length. OTHER: No other significant findings. THIS IS AN ELECTRONICALLY VERIFIED FINAL REPORT 12/17/2020 5:03 PM - Electronically signed by Joseph More M.D. JA: BRE Report ID: [id number] Reading Location: [place] [address] Impression: IMPRESSION: 0.6 cm gallbladder polyp, unchanged. Continued follow-up in 1 year. EXAMINATION BP 132/70 Pulse 92 Temp 99 ??F (37.2 ??C) Resp 20 Ht 5' 11 (1.803 m) Wt 254 lb (115.2 kg) SpO2 98% BMI 35.43 kg/m?? General appearance: alert, no distress, cooperative, appears stated age. HEENT: No scleral icterus Heart: regular rate and rhythm, S1, S2 normal, no murmur, click, rub or gallop. Lungs: no acute distress, clear to auscultation bilaterally anterior and posterior, good effort. Abdomen: soft, non-tender. Bowel sounds normal. No hepatosplenomegaly. No abdominal tenderness. Extremities: extremities normal, atraumatic, no cyanosis or edema, negative homans/warner Skin: Skin color, texture, turgor normal. No rashes or lesions. Lymph nodes: Cervical nodes normal., Supraclavicular nodes normal. Neurologic: Alert and oriented X 3. No focal deficits. ROBERTO: No significant joint tenderness and swelling. No muscle atrophy. Mental status: Orientation X3. Affect was appropriate. Rectal exam: Deferred. IMPRESSION: GALLBLADER POLYP WITH DYSMOTILITY. RECOMMENDATIONS: HISIDA SCAN TODAY, SCHEDULE EGD /COLON IF HISIDA SCAN NEGATIVE. BRBPR WHEN CONSTIPATED. Thank you for much for the opportunity to participate in the care of this patient. Please do not hesitate to contact us if we can be of any further assistance. Documentation for this visit on 01/15/21 was completed using a template. I have seen and examined thepatient. Everything documented was personally performed at this visit with the necessary additions,deletions and changes made as appropriate. Chuck Hinds Yen is a . 25 y.o. male who presents with Chief Complaint Patient presents with ??? New Patient ??? Abdominal Pain ??? Constipation ??? Nausea ??? Anorexia ??? Gas . ALLERGIES: No Known Allergies MEDICATIONS: Current Outpatient Medications Medication Sig Dispense Refill ??? amLODIPine (NORVASC) 5 MG Tablet Take 1 Tablet by mouth 2 times daily. 180 Tablet 1 ??? lisinopril (PRINIVIL, ZESTRIL) 20 MG Tablet Take 1 Tablet by mouth daily. 90 Tablet 1 ??? pravastatin (PRAVACHOL) 40 MG Tablet Take 1 Tablet by mouth every evening. 30 Tablet 3 ??? SALINE NASAL SPRAY NA by Nasal route. No current facility-administered medications for this visit. PROBLEM LIST: Patient Active Problem List Diagnosis ??? Essential hypertension, benign ??? Mixed hyperlipidemia ??? Gallbladder polyp ??? Nonalcoholic steatohepatitis PMS/H: Past Medical History Positives Diagnosis Date ??? Gall bladder polyp ??? Gastroschisis ??? High cholesterol ??? Hypertension Past Surgical History: Procedure Laterality Date ??? APPENDECTOMY ??? SINUS SURGERY SOCIAL: Social History Tobacco Use ??? Smoking status: Former Smoker Packs/day: 1.00 Types: Cigarettes Quit date: 08/11/2020 Years since quittin.4 ??? Smokeless tobacco: Former User Types: Chew Vaping Use ??? Vaping Use: Never used Substance Use Topics ??? Alcohol use: Yes Comment: couple times monthly ??? Drug use: Never FAMILY HX: Family History Problem Relation Age of Onset ??? No Known Problems Mother VITAL SIGNS: Vitals: 01/15/21 1017 BP: 132/70 Pulse: 92 Resp: 20 Temp: 99 ??F (37.2 ??C) SpO2: 98% Weight: 254 lb (115.2 kg) Height: 5' 11 (1.803 m) GENERAL EXAM: GENERAL: Well developed, well nourished, in no acute distress. AAO x3. Cooperative. HEENT: Normocephalic. PERRLA. Nonicteric. No iritis or scleritis identified. NECK: Supple/ non tender/ full ROM, no ulcerations, normal thyroid. LYMPH NODES: No adenopathy. CARDIOVASCULAR: RRR/ S1S2/ No cardiac murmurs. PULMONARY: Respirations easy and regular. Breath sounds clear bilaterally. No rhonchi/ rales/ wheezes. GI: Abdomen soft, non tender, rebound, guarding or masses. No hepatosplenomegaly. Bowel sounds normoactive. MUSCULOSKELETAL: No CVA tenderness. No large joint swelling or tenderness. SKIN: General-warm, pink and dry. No rashes/ lesions. PSYCHIATRIC: Affect appropriate. Normal thought process TEST RESULTS: Results for orders placed or performed in visit on 12/23/20 LIPID PANEL Result Value Ref Range TOTAL CHOLESTEROL 236 HDL 42 mg/dL LDL 163 (A) 0 - 130 mg/dL LABS/ RADIOLOGY REPORTS/ CONSULT NOTES REVIEWED AND DISCUSSED- EXPRESSES UNDERSTANDING. Medication changes/ treatment plan reviewed. Risks and benefits discussed. Expressed understanding. DIAGNOSIS, PLAN AND FOLLOW UP: Diagnoses and all orders for this visit: Nausea - NM HEPATOBILIARY WITH PHARM; Future - GASTRO PROCEDURE; Future - GASTRO PROCEDURE; Future Stomach pain - GASTROENTEROLOGY REFERRAL - NM HEPATOBILIARY WITH PHARM; Future - GASTRO PROCEDURE; Future - GASTRO PROCEDURE; Future Gall bladder polyp - NM HEPATOBILIARY WITH PHARM; Future Constipation, unspecified constipation type - NM HEPATOBILIARY WITH PHARM; Future - GASTRO PROCEDURE; Future Other orders - SALINE NASAL SPRAY NA; by Nasal route. No follow-ups on file. There are no Patient Instructions on file for this visit. Sonu Malave MD documented in this encounter Plan of Treatment Scheduled Orders Name Type Priority Associated Diagnoses Orde r Schedule GASTRO PROCEDURE Procedures Routine Stomach pain Nausea Expected: 09/14/2021 (Approximate), Expires: 01/15/2022 GASTRO PROCEDURE Procedures Routine Stomach pain Nausea Constipation, unspecified constipation type Expected: 09/14/2021 (Approximate), Expires: 01/15/2022 documented as of this encounter Results * NM HEPATOBILIARY WITH PHARM (01/21/2021 12:13 PM CDT) Anatomical Region Laterality Modality Abdomen N/A Nuclear Medicine 01/21/2021 12:2 5 PM CDT Impressions 01/21/2021 12:28 PM CDT IMPRESSION: ?? 1. ??No scintigraphic evidence of common bile or cystic duct obstruction. 2. ??Normal contractile response of the gallbladder to fatty meal stimulation. 3. ??Trace amount of enterogastric reflux. Narrative 01/21/2021 12:28 PM CDT EXAM DESCRIPTION: ?? NM HEPATOBILIARY WITH PHARM RADIOPHARMACEUTICAL: ?? 4.8 mCi Tc-99m mebrofenin via a ??left hand IV site and 8 oz Ensure Plus or equivalent P.O. REASON FOR STUDY: ?? Right upper abdominal pain for 1 year. TECHNIQUE: ??Following the intravenous administration of the radiopharmaceutical, sequential abdominal images were obtained. COMPARISON: ?? Abdominal ultrasound 12/17/2020 FINDINGS: ?? Adequate clearance of the radiotracer from the blood pool. ??Activity appears within the gallbladder at the 10 minute image. ??Subsequent images show activity within the small bowel. Following the oral administration of Ensure Plus or equivalent, the gallbladder ejection fraction was calculated and was ??46% (normal: greater than 40%, equivocal: 30-40%, and abnormal: less than 30%). Trace amount of enterogastric reflux. THIS IS AN ELECTRONICALLY VERIFIED FINAL REPORT 01/21/2021 12:25 PM - Electronically signed by Jose López M.D. LB: GIAN D: ??01/21/2021 12:25 PM T: ??01/21/2021 12:25 PM Report ID: [id number] Reading Location: ??[id number] Procedure Note Jose López MD - 01/21/2021 EXAM DESCRIPTION: NM HEPATOBILIARY WITH PHARM RADIOPHARMACEUTICAL: 4.8 mCi Tc-99m mebrofenin via a left hand IV site and 8 oz Ensure Plus or equivalent P.O. REASON FOR STUDY: Right upper abdominal pain for 1 year. TECHNIQUE: Following the intravenous administration of the radiopharmaceutical, sequential abdominal images were obtained. COMPARISON: Abdominal ultrasound 12/17/2020 FINDINGS: Adequate clearance of the radiotracer from the blood pool. Activity appears within the gallbladder at the 10 minute image. Subsequent images show activity within the small bowel. Following the oral administration of Ensure Plus or equivalent, the gallbladder ejection fraction was calculated and was 46% (normal: greater than 40%, equivocal: 30-40%, and abnormal: less than 30%). Trace amount of enterogastric reflux. THIS IS AN ELECTRONICALLY VERIFIED FINAL REPORT 01/21/2021 12:25 PM - Electronically signed by Jose López M.D. LB: GIAN Report ID: [id number] Reading Location: [id number] IMPRESSION: 1. No scintigraphic evidence of common bile or cystic duct obstruction. 2. Normal contractile response of the gallbladder to fatty meal stimulation. 3. Trace amount of enterogastric reflux. us Sonu Malave MD IMG NM ORDERABLES Final Resu lt documented in this encounter Visit Diagnoses Diagnosis Nausea- Primary Nausea alone Stomach pain Dyspepsia and other specified disorders of function of stomach Gall bladder polyp Cholesterolosis of gallbladder Constipation, unspecified constipation type Stomach pain Dyspepsia and other specified disorders of function of stomach Gall bladder polyp Cholesterolosis of gallbladder Nausea Nausea alone Constipation, unspecified constipation type documented in this encounter Additional Health Concerns Assessment Noted Time PHQ-9 Depression Total Score: 0 12/12/19 21 9:00 AM CDT documented as of this encounter Care Teams Senior Analytic Consultant Relationship Specialty Start Date End Date Charles Vogel MD [address] [place] [address] PCP - General Internal Medicine 02/21/19 documented as of this encounter
--- OUTSIDE RECORDS SUMMARY | 2024-05-13 11:07 | XMS_ITS | Encounter Summary ---
Author Organization [facility] Address [address] [place] [address] Phone Care Team Providers Care Occupational Work Experience Teacher Name Role Phone Charles Vogel MD Primary Care Provider [phone] Reason for Referral * Radiology Services (Routine) - Closed Specialty Diagnoses / Procedures Referred By Horacio espinoza Referred To Contact Radiology Diagnoses Gallbladder polyp Procedures US ABDOMEN LIMITED LEVEL 3 THREE ORGAN Charles Vogel MD [address] [place] [address] Phone: tel: fax: Referral ID Status Reason Start Date Expiration Date Visits Re quested Visits Authorized [id number] Closed 12/11/2020 1 1 Reason for Visit * Radiology Services (Routine) - Closed Specialty Diagnoses / Procedures Referred By Horacio espinoza Referred To Contact Radiology Diagnoses Gallbladder polyp Procedures US ABDOMEN LIMITED LEVEL 3 THREE ORGAN Charles Vogel MD [address] [place] [address] Phone: tel: fax: Referral ID Status Reason Start Date Expiration Date Visits Re quested Visits Authorized [id number] Closed 12/11/2020 1 1 Encounter Details Date Type Department Care Team (Late st Contact Info) Description 12/17/2020 10:02 AM CDT - 12/17/2020 11:59 PM CDT Hospital Encounter [facility] Ultrasound [address] [place] [address] Charles Vogel MD [address] [place] [address] Discharge Disposition: Discharged to home or Selfcare Social History Tobacco Use Types Packs/Day Years Used Date Smoking Tobacco: Former Cigarettes Q uit: 08/11/2020 Smokeless Tobacco: Current Chew Alcohol Use Standard Drinks/Week Comments Yes 0 (1 standard drink = 0.6 oz pur e alcohol) PHQ-2 Answer Date Recorded Total Score - [...] have Coronavirus / COVID-19? No / Unsure 12/17/2020 9:55 AM CDT documented as of this encounter Medications at Time of Discharge amLODIPine (NORVASC) 5 MG TabletIndications :Essential hypertension, benign Take 1 Tablet by mouth 2 times daily. 180 Tablet 09/12/2020 01/05/2021 lisinopril (PRINIVIL, ZESTRIL) 20 MG Tablet Take 1 Tablet by mouth daily. 30 Tablet 11/19/2020 01/05/2021 documented as of this encounter Plan of Treatment Not on file documented as of this encounter Procedures Procedure Name Priority Date/Time Associated Diagnosis Comments US ABDOMEN LIMITED LEVEL 3 THREE ORGAN Routine 12/17/2020 10:21 AM CDT Gallbladder polyp documented in this encounter Results * US LIVER, PANCREAS AND GALLBLADDER (12/17/2020 10:21 AM CDT) Anatomical Region Laterality Modality Abdomen N/A Ultrasound 12/17/2020 5:03 PM CDT Impressions 12/17/2020 5:06 PM CDT IMPRESSION: ?? 0.6 cm gallbladder polyp, unchanged. ??Continued follow-up in 1 year. Narrative 12/17/2020 5:06 PM CDT EXAM DESCRIPTION: ?? US ABDOMEN LIMITED LEVEL 3 THREE ORGAN REASON FOR STUDY: ?? History of gallbladder polyp for 1 year follow-up. TECHNIQUE: ??Ultrasound of the right upper quadrant of the abdomen was performed with grayscale and color doppler. COMPARISON: ?? Ultrasound dated June 18, 2020 FINDINGS: ??PANCREAS: ??Visualized portions of the pancreas are within normal limits. Portions of the pancreatic body and tail are obscured due to bowel gas. LIVER: ??The liver appears normal in echotexture and echogenicity. No focal lesion identified. The main portal vein is patent with antegrade flow. GALLBLADDER: Within the gallbladder there is a 0.6 cm echogenic nonmobile nonshadowing structure compatible with a polyp. ??No cholelithiasis. ??No gallbladder wall thickening or pericholecystic fluid. No positive sonographic Ashton's sign reported. BILIARY: ??There is no intrahepatic or extrahepatic biliary ductal dilatation. Common bile duct measures ??0.5 cm in diameter. RIGHT KIDNEY: ??Normal size. Normal echogenicity. No solid mass or cyst. ??No hydronephrosis. Measures ??10.5 cm in length. OTHER: ??No other significant findings. THIS IS AN ELECTRONICALLY VERIFIED FINAL REPORT 12/17/2020 5:03 PM - Electronically signed by Joseph More M.D. JA: BRE D: ??12/17/2020 5:03 PM T: ??12/17/2020 5:03 PM Report ID: [id number] Reading Location: ??[id number] Procedure Note Joseph More MD - 12/17/2020 EXAM DESCRIPTION: US ABDOMEN LIMITED LEVEL 3 [...] Joseph More M.D. JA: BRE Report ID: [id number] Reading Location: [id number] IMPRESSION: 0.6 cm gallbladder polyp, unchanged. Continued follow-up in 1 year. 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
--- OUTSIDE RECORDS SUMMARY | 2024-05-13 11:07 | XMS_ITS | Encounter Summary ---
Author Organization [facility] Address [address] [place] [address] Phone Care Team Providers Care Director Of Materials Name Role Phone Charles Vogel MD Primary Care Provider [phone]- [phone] Reason for Visit * Reason Onset Date Comments Labs Only 03/13/2021 Encounter Details Date Type Department Care Team (Late st Contact Info) Description 03/13/2021 Telephone [facility] - Internal Medicine - [facility] [address] [place] [id number] Charles Vogel MD [address] [place] [address] Labs Only Social History Tobacco Use Types Packs/Day Years Used Date Smoking Tobacco: Former Cigarettes Q uit: 08/11/2020 Smokeless Tobacco: Former Chew Alcohol Use Standard Drinks/Week Comments Yes [...] have Coronavirus / COVID-19? No / Unsure 03/11/2021 10:44 AM CDT documented as of this encounter Miscellaneous Notes * Telephone Encounter - Antonieta Angel RN - 03/13/2021 8:14 AM CDT MyChart message sent. * Telephone Encounter - Antonieta Angel RN - 03/13/2021 8:08 AM CDT ----- Message from GLEN Kelly sent at 03/11/2021 4:07 PM CDT ----- LDL mildly elevatedHDL low Diet, exercise Low fat low cholesterol documented in this encounter Plan of Treatment Not on file documented as of this encounter Visit Diagnoses Not on filedocumented in this encounter Additional Health Concerns Assessment Noted Time PHQ-9 Depression Total Score: 0 12/12/19 21 9:00 AM CDT documented as of this encounter Care Teams Director Of Materials Relationship Specialty Start Date End Date Charles Vogel MD [address] [place] [address] PCP - General Internal Medicine 02/21/19 documented as of this encounter
--- OUTSIDE RECORDS SUMMARY | 2024-05-13 11:07 | XMS_ITS | Encounter Summary ---
Author Organization [employer] Care Team Providers Care Websphere Portal Architect Name Role Phone Charles Vogel MD Primary Care Provider [phone]- [phone] Encounter Details Date Type Department Care Team (Latest Contact Info) Description 01/15/2021 Travel Social History Tobacco Use Types Packs/Day [...] documented as of this encounter Care Teams Websphere Portal Architect Relationship Specialty Start Date End Date Charles Vogel MD [address] [place] [address] PCP - General Internal Medicine 02/21/19 documented as of this encounter
--- OUTSIDE RECORDS SUMMARY | 2024-05-13 11:07 | XMS_ITS | Encounter Summary ---
Author Organization [facility] Address [address] [place] [address] Phone Care Team Providers Care Prosthodontist/Educator Name Role Phone Charles Vogel MD Primary Care Provider [phone] Encounter Details Date Type Department Care Team (Late st Contact Info) Description 03/11/2021 10:40 AM CDT Lab [facility] - Internal Medicine - [place] [address] [place] [address] [facility] Essential hypertension, benign; Mixed hyperlipidemia; Mixed hyperlipidemia; Abnormal liver function test Discharge Disposition: Discharged to home or Selfcare [...] as of this encounter Progress Notes * Zaina Perry, CHUCK - 03/11/2021 10:40 AM CDT Chuck presents for lab draw per order of Dr. Charles Vogel dated 03/11/2021. Specimen collected from left hand without incident. documented in this encounter Plan of Treatment Not on file documented as of this encounter Procedures Procedure Name Priority Date/Time Associated Diagnosis Comments LIPID PANEL Routine 03/11/2021 10:57 AM CDT Mixed hyperlipidemia Abnormal liver function test CMP (COMPREHENSIVE METABOLIC PANEL) Routine 03/11/2021 10:57 AM CDT Essential hypertension, benign Mixed hyperlipidemia documented in this encounter Results * (ABNORMAL) LIPID PANEL (03/11/2021 10:57 AM CDT) CHOLESTEROL 181 <=200 mg/dL 03/11/2021 3:52 PM CDT [facility] TRIGLYCERIDES 119 <150 mg/dL 03/11/2021 3:52 PM CDT [facility] HDL CHOLESTEROL 37.7(L) >40 mg/dL 3:52 PM CDT [facility] LDL 120 5 - 130 mg/dL 03/11/2021 3:52 PM CDT [facility] VLDL 24 5 - 55 mg/dL 03/11/2021 3:52 PM CDT [facility] CHOL/HDL RATIO 4.8(H) 0.0 - 4.4 03/11/2021 3:52 PM CDT [facility] NON-HDL CHOLESTEROL 143.3(H) <130 mg/dL 03/11/2021 3:52 PM CDT [facility] IS THE PATIENT REQUIRED TO BE FASTING? Yes 03/11/2021 3:52 PM CDT [facility] HAS THE PATIENT BEEN FASTING? Yes 03/11/2021 3:52 PM CDT [facility] Blood Venipuncture / Unknown 03/11/2021 10:57 AM CDT 03/11/2021 10:57 AM CDT us Charles Vogel MD CHEMISTRY ORDERABLES Final Result [facility] [address] [place] [address] * (ABNORMAL) CMP (COMPREHENSIVE METABOLIC PANEL) (03/11/2021 10:57 AM CDT) SODIUM 139 136 - 144 mmol/L 03/11/2021 3:52 PM CDT [facility] POTASSIUM 4.0 3.5 - 5.1 mmol/L 03/11/2021 3:52 PM CDT [facility] CHLORIDE 105 100 - 110 mmol/L 03/11/2021 3:52 PM CDT [facility] CO2, VENOUS 22 22 - 32 mmol/L 03/11/2021 3:52 PM CDT [facility] ANION GAP 16.0 8.0 - 20.0 mmol/L 03/11/2021 3:52 PM CDT [facility] GLUCOSE 102(H) 70 - 99 mg/dL 03/11/2021 3:52 PM CDT [facility] BUN 15 6 - 20 mg/dL 03/11/2021 3:52 PM CDT [facility] CREATININE, BLOOD 0.73(L) 0.80 - 1.30 mg/dL 03/11/2021 3:52 PM CDT [facility] BUN/CREATININE RATIO 21(H) 12 - 20 ratio 03/11/2021 3:52 PM CDT [facility] TOTAL PROTEIN 7.6 6.0 - 8.3 g/dL 03/11/2021 3:52 PM CDT [facility] ALBUMIN 4.4 3.5 - 5.2 g/dL 03/11/2021 3:52 PM CDT [facility] Comment: The colormetric methods used for the determination of Albumin may lead to falsely elevated test results in patients suffering from renal failure or insufficiency due to interference with other proteins. A/G RATIO 1.4 1.0 - 2.0 03/11/2021 3:52 PM CDT [facility] CALCIUM 9.7 8.9 - 10.3 mg/dL 03/11/2021 3:52 PM CDT [facility] T BILI 0.7 <=1.2 mg/dL 03/11/2021 3:52 PM CDT [facility] SGOT (AST) 22 <=40 U/L 03/11/2021 3:52 PM CDT [facility] SGPT (ALT) 41 <=41 U/L 03/11/2021 3:52 PM CDT [facility] ALKALINE PHOSPHATASE 100 40 - 130 U/L 03/11/2021 3:52 PM CDT [facility] GFR, EST. NONAFRICAN >60 >=60 03/11/2021 3:52 PM CDT [facility] GFR, EST. >60 >=60 021 3:52 PM CDT [facility] Comment: Creatinine Clearance is the preferred criteria for selecting drug dose adjustments in renally impaired patients. ??The GFR is provided as additional pertinent clinical information. GFR is reported in mL/min/1.73 sq m. IS THE PATIENT REQUIRED TO BE FASTING? No 03/11/2021 3:52 PM CDT [facility] Blood Venipuncture / Unknown 03/11/2021 10:57 AM CDT 03/11/2021 10:57 AM CDT us Charles Vogel MD CHEMISTRY ORDERABLES Final Result [facility] [address] [place] [address] documented in this encounter Visit Diagnoses Diagnosis Essential hypertension, benign Mixed hyperlipidemia Abnormal liver function test Other abnormal blood chemistry documented in this encounter Additional Health Concerns Assessment Noted Time PHQ-9 Depression Total Score: 0 12/12/19 21 9:00 AM CDT documented as of this encounter Care Teams Prosthodontist/Educator Relationship Specialty Start Date End Date Charles Vogel MD [address] [place] [address] PCP - General Internal Medicine 02/21/19 documented as of this encounter
--- OUTSIDE RECORDS SUMMARY | 2024-05-13 11:07 | XMS_ITS | Encounter Summary ---
Author Organization [facility] Address [address] [place] [address] Phone Care Team Providers Care Welder Apprentice Name Role Phone Charles Vogel MD Primary Care Provider [phone] Reason for Referral * Consult, Test & Initiate Treatment (Less Than 2 Weeks) - Closed Specialty Diagnoses / Procedures Referred By Contact Referred To Contact Gastroenterology Diagnoses Stomach pain Charles Vogel MD [address] [place] [address] Phone: tel: fax: [facility] - Gastroenterology [facility] [address] [place] [address] Phone: tel: fax: Referral ID Status Reason Start Date Expiration Date Visits Re quested Visits Authorized [id number] Closed 01/05/2021 1 1 Scheduling Instructions Chuck is being referred for stomach for last year. Please contact patient for scheduling questions or concerns. See below for Chuck's current medications, allergies and problem list. CURRENT MEDS: Current Outpatient Medications: amLODIPine (NORVASC) 5 MG Tablet, Take 1 Tablet by mouth 2 times daily., Disp: 180 Tablet, Rfl: 0 lisinopril (PRINIVIL, ZESTRIL) 20 MG Tablet, Take 1 Tablet by mouth daily., Disp: 30 Tablet, Rfl: 0 No current facility-administered medications for this visit. ALLERGIES: No Known Allergies PROBLEM LIST: Patient Active Problem List: Essential hypertension, benign Mixed hyperlipidemia Gallbladder polyp Nonalcoholic steatohepatitis Encounter Details Date Type Department Care Team (Late st Contact Info) Description 01/05/2021 Refill [facility] - Internal Medicine [facility] [address] [place] [address] Charles Vogel MD [address] [place] [address] Social History Tobacco Use Types Packs/Day Years [...] Telephone Encounter - Antonieta Angel RN - 01/05/2021 9:55 AM CDT Patient calling for medication and GI referral for stomach pains for the last year. documented in this encounter Plan of Treatment Scheduled Referrals Name Type Priority Associated Diagnoses Order Schedule GASTROENTEROLOGY REFERRAL Outpatient Referral Less Than 2 weeks Stomach pain Expected: 01/05/2021, Expires: 01/05/2022 documented as of this encounter Visit Diagnoses Diagnosis Stomach pain- Primary Dyspepsia and other specified disorders of function of stomach Essential hypertension, benign documented in this encounter Additional Health Concerns Assessment Noted Time PHQ-9 Depression Total Score: 0 12/12/19 9:00 AM CDT documented as of this encounter Care Teams Welder Apprentice Relationship Specialty Start Date End Date Charles Vogel MD [address] [place] [address] PCP - General Internal Medicine 02/21/19 documented as of this encounter
--- OUTSIDE RECORDS SUMMARY | 2024-05-13 11:07 | XMS_ITS | Encounter Summary ---
Author Organization [facility] Address [address] [place] [address] Phone Care Team Providers Care Parts Counter Clerk Name Role Phone Charles Vogel MD Primary Care Provider [phone] Encounter Details Date Type Department Care Team (Late st Contact Info) Description 01/27/2021 Telephone [facility] - Internal Medicine - [place] [address] [place] [address] Charles Vogel MD [address] [place] [address] Social History Tobacco Use Types Packs/Day Years Used Date Smoking Tobacco: Former Cigarettes Q uit: 08/11/2020 Smokeless Tobacco: Former Chew Alcohol Use Standard Drinks/Week Comments Yes 0 (1 standard drink = 0.6 oz pur e alcohol) couple times monthly PHQ-2 Answer Date Recorded Total Score - Questions 1-9 0 /01/2021 Sexually Active Control Partners Comments Yes Sex [...] have Coronavirus / COVID-19? No / Unsure 01/21/2021 10:03 AM CDT documented as of this encounter Miscellaneous Notes * Telephone Encounter - Charles Vogel MD - 01/27/2021 4:39 PM CDT Amoxicillin 500mg tid for 10d rx sent * Telephone Encounter - Radha Tai - 01/27/2021 3:33 PM CDT Patient states he has been using all of those medications and is not getting any relief. * Telephone Encounter - Charles Vogel MD - 01/27/2021 9:26 AM CDT Sounds like allergy symptoms. Should try otc Zyrtec, Loratadine or Belinda. * Telephone Encounter - Radha Tai - 01/27/2021 9:07 AM CDT Patient complainingg of headache, sinus drainage, draining down throat causing him to cough, sore throat, watery eyes. NKA and uses [facility]. Call back # [phone] documented in this encounter Plan of Treatment Not on file documented as of this encounter Visit Diagnoses Not on filedocumented in this encounter Additional Health Concerns Assessment Noted Time PHQ-9 Depression Total Score: 0 12/12/19 21 9:00 AM CDT documented as of this encounter Care Teams Parts Counter Clerk Relationship Specialty Start Date End Date Charles [place] [place] [address] PCP - General Internal Medicine 02/21/19 documented as of this encounter
--- OUTSIDE RECORDS SUMMARY | 2024-05-13 11:07 | XMS_ITS | Encounter Summary ---
Author Organization [facility] Address [address] [address] Phone Care Team Providers Care Electrician Second Name Role Phone Charles Vogel MD Primary Care Provider [phone] Reason for Visit * Reason Comments Medication Refill Encounter Details Date Type Department Care Team (Late st Contact Info) Description 04/29/2021 Refill [facility] - [facility] - [place] [address] [place] [id number] Charles Vogel MD [address] [place] [address] Medication Refill Social History Tobacco Use Types Packs/Day Years [...] on file documented as of this encounter Miscellaneous Notes * Telephone Encounter - Antonieta Angel RN - 04/29/2021 2:19 PM CST Medication(s) refilled and signed per [facility] Chronic Medication Refill Standing Order for Pediatricand Adult Patients. Requested Prescriptions Pending Prescriptions Disp Refills ??? pravastatin (PRAVACHOL) 40 MG Tablet [Pharmacy Med Name: PRAVASTATIN 40MG TABLETS] 30 Tablet 3 Sig: TAKE 1 TABLET BY MOUTH EVERY EVENING Hmg CoA Reductase Inhibitors Protocol Passed - 04/29/2021 11:48 AM Passed - Visit with relevant provider in past 12 months or upcoming 90 days Recent Visits Date Type Provider Dept 12/11/20 Office Visit Charles Vogel MD [facility] Showing recent visits within past 365 days and meeting all other requirements Future Appointments Date Type Provider Dept 06/15/21 Appointment Charles Vogel MD [facility] [place] Showing future appointments within next 90 days and meeting all other requirements Passed - Lipid panel in past 12 months LDL Date Value Ref Range Status 03/11/2021 120 5 - 130 mg/dL Final 12/19/2020 163 (A) 0 - 130 mg/dL Final HDL CHOLESTEROL Date Value Ref Range Status 03/11/2021 37.7 (L) >40 mg/dL Final CHOLESTEROL Date Value Ref Range Status 03/11/2021 181 <=200 mg/dL Final TRIGLYCERIDES Date Value Ref Range Status 03/11/2021 119 <150 mg/dL Final VLDL Date Value Ref Range Status 03/11/2021 24 5 - 55 mg/dL Final CHOL/HDL RATIO Date Value Ref Range Status 03/11/2021 4.8 (H) 0.0 - 4.4 Final NON-HDL CHOLESTEROL Date Value Ref Range Status 03/11/2021 143.3 (H) <130 mg/dL Final [employer]ESSING documented in this encounter Plan of Treatment Not on file documented as of this encounter Visit Diagnoses Not on filedocumented in this encounter Additional Health Concerns Assessment Noted Time PHQ-9 Depression Total Score: 0 12/12/19 21 9:00 AM CDT documented as of this encounter Care Teams Electrician Second Relationship Specialty Start Date End Date Charles Vogel MD [address] [place] [address] PCP - General Internal Medicine 02/21/19 documented as of this encounter
--- OUTSIDE RECORDS SUMMARY | 2024-05-13 11:07 | XMS_ITS | Encounter Summary ---
Author Organization [employer] Care Team Providers Care Lining Vamper Name Role Phone Charles Vogel MD Primary Care Provider [phone] Encounter Details Date Type Department Care Team (Latest Contact Info) Description 12/17/2020 Travel Social History Tobacco Use Types Packs/Day [...] documented as of this encounter Care Teams Lining Vamper Relationship Specialty Start Date End Date Charles Vogel MD [address] [place] [address] PCP - General Internal Medicine 02/21/19 documented as of this encounter
--- OUTSIDE RECORDS SUMMARY | 2024-05-13 11:07 | XMS_ITS | Encounter Summary ---
Author Organization [facility] Address [address] [place] [address] Phone Care Team Providers Care Aerial Planting And Cultivation Manager Name Role Phone Charles Vogel MD Primary Care Provider [phone] Reason for Visit * Reason Onset Date Comments Results 01/22/2021 Encounter Details Date Type Department Care Team (Late st Contact Info) Description 01/22/2021 Telephone [facility] - Gastroenterology - [place] [address] [place] [address] Sonali Rodarte Jud, [facility] [address] [place] [address] Results Social History Tobacco Use Types Packs/Day [...] Miscellaneous Notes * Telephone Encounter - Carolyn Hines RN - 01/27/2021 10:26 AM CDT Patient is aware and verbalizes understanding. Patient asking about getting scheduled for procedures. Colonoscopy and EGD order noted per chart review. * Telephone Encounter - Carolyn Hines RN - 01/22/2021 1:55 PM CDT Left message to call back. * Telephone Encounter - Carolyn Hines RN - 01/22/2021 1:55 PM CDT ----- Message from Sonali Rodarte PAC sent at 01/21/2021 12:33 PM CDT ----- Please advise HIDA scan was essentially normal however did demonstrate some mild reflux. documented in this encounter Plan of Treatment Not on file documented as of this encounter Visit Diagnoses Not on filedocumented in this encounter Additional Health Concerns Assessment Noted Time PHQ-9 Depression Total Score: 0 12/12/19 21 9:00 AM CDT documented as of this encounter Care Teams Aerial Planting And Cultivation Manager Relationship Specialty Start Date End Date Charles Vogel MD [address] [place] [address] PCP - General Internal Medicine 02/21/19 documented as of this encounter
--- OUTSIDE RECORDS SUMMARY | 2024-05-13 11:07 | XMS_ITS | Encounter Summary ---
Author Organization [email or web address] Care Team Providers Care Health Companion Name Role Phone Charles Vogel MD Primary Care Provider [phone] Encounter Details Date Type Department Care Team (Latest Contact Info) Description 03/11/2021 Travel Social History Tobacco Use Types Packs/Day Years Used Date Smoking Tobacco: Former Cigarettes Q uit: 08/11/2020 Smokeless Tobacco: Former Chew Alcohol Use Standard Drinks/Week Comments Yes 0 (1 standard drink = 0.6 oz pur e alcohol) couple times monthly PHQ-2 Answer Date Recorded Total Score - Questions 1-9 0 /2 01/2021 Sexually Active Control Partners Comments Yes Sex [...] as of this encounter Care Teams Health Companion Relationship Specialty Start Date End Date Charles Vogel MD [address] [place] [address] PCP - General Internal Medicine 02/21/19 documented as of this encounter
--- OUTSIDE RECORDS SUMMARY | 2024-05-13 11:07 | XMS_ITS | Encounter Summary ---
Author Organization [facility] Address [address] [place] [address] Phone Care Team Providers Care Trapper Animal Name Role Phone Charles Vogel MD Primary Care Provider Encounter Details Date Type Department Care Team (Late st Contact Info) Description 07/15/2021 Telephone [facility] - Gastroenterology [facility] [address] [place] [phone] Ruy Duran MD [address] [place] [address] Social History Tobacco Use Types Packs/Day Years [...] encounter Miscellaneous Notes * Telephone Encounter - Prabhjot Armendariz CMA - 07/15/2021 10:09 AM SMALLTALK DEVELOPER 2nd attempt to schedule egd/colon, letter mailed to contact office LTALK DEVELOPER documented in this encounter Plan of Treatment Not on file documented as of this encounter Visit Diagnoses Not on filedocumented in this encounter Additional Health Concerns Assessment Noted Time PHQ-9 Depression Total Score: 0 12/12/19 21 9:00 AM CDT documented as of this encounter Care Teams Trapper Animal Relationship Specialty Start Date End Date Charles Vogel MD [address] [place] [address] PCP - General Internal Medicine 02/21/19 documented as of this encounter
--- OUTSIDE RECORDS SUMMARY | 2024-05-13 11:07 | XMS_ITS | Encounter Summary ---
Author Organization [facility] Address [address] [place] [address] Phone Care Team Providers Care Head Of Acquisitions Name Role Phone Charles Vogel MD Primary Care Provider [phone] Reason for Visit * Reason Onset Date Comments Results 12/18/2020 ultrasound Encounter Details Date Type Department Care Team (Late st Contact Info) Description 12/18/2020 Telephone [facility] - Internal Medicine - [place] [address] [place] [id number] Charles Vogel MD [address] [place] [address] Results (ultrasound) Social History Tobacco Use Types Packs/Day Years [...] Telephone Encounter - Antonieta Angel RN - 12/19/2020 4:15 PM CDT Phoned patient with US results and provider's recommendations. Patient aware and verbalized understanding. * Telephone Encounter - Antonieta Angel RN - 12/18/2020 8:47 AM CDT ----- Message from Charles Vogel MD sent at 12/18/2020 8:36 AM CDT ----- Gallbladder polyp unchanged. Rpt US in one year documented in this encounter Plan of Treatment Not on file documented as of this encounter Visit Diagnoses Not on filedocumented in this encounter Additional Health Concerns Assessment Noted Time PHQ-9 Depression Total Score: 0 12/12/19 21 9:00 AM CDT documented as of this encounter Care Teams Head Of Acquisitions Relationship Specialty Start Date End Date Charles Vogel MD [address] [place] [address] PCP - General Internal Medicine 02/21/19 documented as of this encounter
--- OUTSIDE RECORDS SUMMARY | 2024-05-13 11:07 | XMS_ITS | Encounter Summary ---
Author Organization [facility] Address [address] [place] [address] Phone Care Team Providers Care Batch And Furnace Manager Name Role Phone Charles Vogel MD Primary Care Provider [phone] Reason for Referral * Radiology Services (Routine) - Closed Specialty Diagnoses / Procedures Referred By Contac t Referred To Contact Radiology Diagnoses Stomach pain Gall bladder polyp Nausea Constipation, unspecified constipation type Procedures NM HEPATOBILIARY WITH Sonu Bro MD Referral ID Status Reason Start Date Expiration Date Visits Re quested Visits Authorized [id number] Closed 01/15/2021 1 1 Reason for Visit * Radiology Services (Routine) - Closed Specialty Diagnoses / Procedures Referred By Contac t Referred To Contact Radiology Diagnoses Stomach pain Gall bladder polyp Nausea Constipation, unspecified constipation type Procedures NM HEPATOBILIARY WITH Sonu Bro MD Referral ID Status Reason Start Date Expiration Date Visits Re quested Visits Authorized [id number] Closed 01/15/2021 1 1 Encounter Details Date Type Department Care Team (Latest Contact Info) Description 01/21/2021 10:00 AM CDT - 01/21/2021 11:59 PM CDT Hospital Encounter [facility] Nuclear Medicine [address] [place] [id number] Sonu Malave MD Discharge Disposition: Discharged to home or Selfcare [...] 2 times daily. 180 Tablet 1 01/05/2021 lisinopril (PRINIVIL, ZESTRIL) 20 MG TabletIndications :Essential hypertension, benign Take 1 Tablet by mouth daily. 90 Tablet 1 01/05/2021 SALINE NASAL SPRAY NA by Nasal route. pravastatin (PRAVACHOL) 40 MG Tablet Take 1 Tablet by mouth every evening. 30 Tablet 3 01/05/2021 04/29/2021 documented as of this encounter Plan of Treatment Not on file documented as of this encounter Procedures Procedure Name Priority Date/Time Associated Diagnosis Comments NM HEPATOBILIARY WITH PHARM Routine 01/21/2021 12:13 PM CDT Stomach pain Gall bladder polyp Nausea Constipation, unspecified constipation type documented in this encounter Results * NM HEPATOBILIARY WITH [...] Electronically signed by Jose López M.D. LB: LB D: ??01/21/2021 12:25 PM T: ??01/21/2021 12:25 PM Report ID: [id number] Reading Location: ??[id number] Procedure Note Jose López MD - 01/21/2021 [...] Electronically signed by Jose López M.D. LB: LB Report ID: [id number] Reading Location: [id number] IMPRESSION: 1. No scintigraphic evidence of common bile or cystic duct obstruction. 2. Normal contractile response of the gallbladder to fatty meal stimulation. 3. Trace amount of enterogastric reflux. us Sonu Malave MD IMG NM ORDERABLES Final Resu lt documented in this encounter Visit Diagnoses Diagnosis Stomach pain Dyspepsia and other specified disorders of function of stomach Gall bladder polyp Cholesterolosis of gallbladder Nausea Nausea alone Constipation, unspecified constipation type documented in this encounter Administered Medications Inactive Administered Medications - up to 3 most recent administrations Medication Order MAR Action Action Date Dose Rate Site TC-99M MEBROFENIN PER DOSE,UP TO 15 MCI 1 Dose, Intravenous, ONCE, 1 dose, On Tue01/21/21 at 1100 Given 01/21/2021 10:20 AM CDT 1 Dose documented in this encounter Additional Health Concerns Assessment Noted Time PHQ-9 Depression Total Score: 0 12/12/19 9:00 AM CDT documented as of this encounter Care Teams Batch And Furnace Manager Relationship Specialty Start Date End Date Charles Vogel MD [address] [place] [address] PCP - General Internal Medicine 02/21/19 documented as of this encounter
--- OUTSIDE RECORDS SUMMARY | 2024-05-13 11:07 | XMS_ITS | Encounter Summary ---
Author Organization [employer] Care Team Providers Care Admissions Gate Attendant Name Role Phone Charles Vogel MD Primary Care Provider [phone] Encounter Details Date Type Department Care Team (Latest Contact Info) Description 12/11/2020 Travel Social History Tobacco Use Types Packs/Day [...] have Coronavirus / COVID-19? No / Unsure 12/11/2020 8:48 AM CDT documented as of this encounter Plan of Treatment Not on file documented as of this encounter Visit Diagnoses Not on filedocumented in this encounter Additional Health Concerns Assessment Noted Time PHQ-9 Depression Total Score: 0 12/12/19 21 9:00 AM CDT documented as of this encounter Care Teams Admissions Gate Attendant Relationship Specialty Start Date End Date Charles Vogel MD [address] [place] [address] PCP - General Internal Medicine 02/21/19 documented as of this encounter
--- OUTSIDE RECORDS SUMMARY | 2024-05-13 11:07 | XMS_ITS | Encounter Summary ---
Author Organization [employer] Care Team Providers Care Director Of Strategic Sales Name Role Phone Charles Vogel MD Primary Care Provider [phone] Encounter Details Date Type Department Care Team (Latest Contact Info) Description 01/21/2021 Travel Social History Tobacco Use Types Packs/Day [...] of this encounter Care Teams Director Of Strategic Sales Relationship Specialty Start Date End Date Charles Vogel MD [address] [place] [address] PCP - General Internal Medicine 02/21/19 documented as of this encounter
--- OUTSIDE RECORDS SUMMARY | 2024-05-13 11:07 | XMS_ITS | Encounter Summary ---
Author Organization [facility] Address [address] [place] [address] Phone Care Team Providers Care Beater Out Name Role Phone Charles Vogel MD Primary Care Provider [phone] Reason for Visit * Reason Onset Date Comments Labs Only 12/24/2020 Encounter Details Date Type Department Care Team (Late st Contact Info) Description 12/24/2020 Telephone [facility] - [facility] - [place] [address] [place] [phone] Charles Vogel MD [address] [place] [address] Labs Only Social History Tobacco [...] Encounter - Antonieta Angel RN - 01/05/2021 4:51 PM CDT Phoned patient with provider's recommendations. Patient aware and verbalized understanding. * Telephone Encounter - Charles Vogel MD - 01/05/2021 11:38 AM CDT Pravastatin 40 mg at bedtime Rx sent. Needs to have repeat lipid, ALT done in about 2 months. * Telephone Encounter - Antonieta Angel RN - 01/05/2021 9:53 AM CDT Phoned patient with labs results and provider's recommendations. Patient aware and verbalized understanding. Patient stated that he would be willing to try medication but wanted to make sure that you remembered that they have elevated his liver enzymes in the past. * Telephone Encounter - Antonieta Angel RN - 12/25/2020 4:14 PM CDT Attempted to call patient with results, no answer at this time. Left message to call back. * Telephone Encounter - Antonieta Angel RN - 12/24/2020 11:49 AM CDT ----- Message from Charles Vogel MD sent at 12/23/2020 8:40 AM CDT ----- Lipids elevated. Needs to be on cholesterol-lowering medication. documented in this encounter Plan of Treatment Not on file documented as of this encounter Results * (ABNORMAL) LIPID PANEL (03/11/2021 10:57 AM CDT) CHOLESTEROL 181 <=200 mg/dL 03/11/2021 3:52 PM CDT [facility] TRIGLYCERIDES 119 <150 mg/dL 03/11/2021 3:52 PM CDT [facility] HDL CHOLESTEROL 37.7(L) >40 mg/dL 3:52 PM CDT [facility] LDL 120 5 - 130 mg/dL 03/11/2021 3:52 PM CDT [facility] VLDL 24 5 - 55 mg/dL 03/11/2021 3:52 PM CDT [facility] CHOL/HDL RATIO 4.8(H) 0.0 - 4.4 03/11/2021 3:52 PM CDT [facility] NON-HDL CHOLESTEROL 143.3(H) <130 mg/dL 03/11/2021 3:52 PM CDT [facility] IS THE PATIENT REQUIRED TO BE FASTING? Yes 03/11/2021 3:52 PM CDT [facility] HAS THE PATIENT BEEN FASTING? Yes 03/11/2021 3:52 PM CDT [facility] Blood Venipuncture / Unknown 03/11/2021 10:57 AM CDT 03/11/2021 10:57 AM CDT Charles Vogel MD CHEMISTRY ORDERABLES Final Result [facility] [address] [place] [address] documented in this encounter Visit Diagnoses Diagnosis Mixed hyperlipidemia- Primary Abnormal liver function test Other abnormal blood chemistry documented in this encounter Additional Health Concerns Assessment Noted Time PHQ-9 Depression Total Score: 0 12/12/19 21 9:00 AM CDT documented as of this encounter Care Teams Beater Out Relationship Specialty Start Date End Date Charles Vogel MD [address] [place] [address] PCP - General Internal Medicine 02/21/19 documented as of this encounter
--- OUTSIDE RECORDS SUMMARY | 2024-05-13 11:08 | XMS_ITS | Encounter Summary ---
Author Organization [facility] Address [address] [facility] [facility] [place] [address] Phone Care Team Providers Care Hot Punch Press Operator Name Role Phone Charles Vogel MD Primary Care Provider [phone] Reason for Visit * Reason Onset Date Comments Medication Refill 03/11/2020 Encounter Details Date Type Department Care Team (Late st Contact Info) Description 03/11/2020 Refill [facility] - Internal Medicine - [place] [address] [place] [phone] Charles Vogel MD [address] [place] [address] Medication Refill Social History Tobacco Use Types Packs/Day Years Used Date Smoking Tobacco: Never Assessed Sex and Gender Information Value Date Recorded Sex Assigned at Not on file Legal Sex Male 7:15 PM CDT Gender Identity Not on file Sexual Orientation Not on file documented as of this encounter Miscellaneous Notes * Telephone Encounter - Antonieta Angel RN - 03/11/2020 4:34 PM CDT Order pended documented in this encounter Plan of Treatment Not on file documented as of this encounter Visit Diagnoses Not on filedocumented in this encounter Care Teams Hot Punch Press Operator Relationship Specialty Start Date End Date Charles Vogel MD [address] [place] [address] PCP - General Internal Medicine 02/21/19 documented as of this encounter
--- OUTSIDE RECORDS SUMMARY | 2024-05-13 11:08 | XMS_ITS | Encounter Summary ---
Author Organization [facility] Address [address] [place] [address] Phone Care Team Providers Care Administrative Personal Assistant Name Role Phone Charles Vogel MD Primary Care Provider Reason for Visit * Reason Onset Date Comments Results 04/24/2020 Encounter Details Date Type Department Care Team (Late st Contact Info) Description 04/24/2020 Telephone [facility] - Internal [facility] - [place] [address] [place] [phone] Charles Vogel MD [address] [facility] [place] [address] Results Social History Tobacco Use Types Packs/Day Years Used Date Smoking Tobacco: Never Assessed Sex and Gender Information Value Date Recorded Sex Assigned at Not on file Legal Sex Male 7:15 PM CDT Gender Identity Not on file Sexual Orientation Not on file documented as of this encounter Miscellaneous Notes * Telephone Encounter - Antonieta Angel RN - 04/30/2020 4:47 PM CST Phoned patient with lab results and provider's recommendation. Patient aware and verbalized understanding. CULAR BIOLOGY PROFESSOR * Telephone Encounter - Antonieta Angel RN - 04/30/2020 4:43 PM CST Attempted to call patient with results, no answer at this time. Left message to call back. CULAR BIOLOGY PROFESSOR * Telephone Encounter - Antonieta Angel RN - 04/24/2020 3:02 PM CST ----- Message from Charles Vogel MD sent at 04/24/2020 3:01 PM MOLECULAR BIOLOGY PROFESSOR ----- His LFTs elevated. Needs to change atorvastatin to 20 mg every other night. Repeat ALT/AST in 1 month CULAR BIOLOGY PROFESSOR documented in this encounter Plan of Treatment Not on file documented as of this encounter Results * AST (SGOT) (06/05/2020) Blood Charles Vogel MD CHEMISTRY ORDERABLES Final Result * ALT (SGPT) (06/05/2020) Blood Charles Vogel MD CHEMISTRY ORDERABLES Final Result documented in this encounter Visit Diagnoses Diagnosis Abnormal liver function test- Primary Other abnormal blood chemistry documented in this encounter Care Teams Administrative Personal Assistant Relationship Specialty Start Date End Date Charles Vogel MD [address] [place] [address] PCP - General Internal Medicine 02/21/19 documented as of this encounter
--- OUTSIDE RECORDS SUMMARY | 2024-05-13 11:08 | XMS_ITS | Encounter Summary ---
Author Organization [facility] Address [address] [place] [address] Phone Care Team Providers Care Drying Machine Receiver Name Role Phone Charels Vogel MD Primary Care Provider [phone] Encounter Details Date Type Department Care Team (Late st Contact Info) Description 03/10/2020 Refill [facility] [place] [address] [place] [address] Charles Vogel MD [address] [place] [address] Social History Tobacco Use Types Packs/Day Years Used Date Smoking Tobacco: Never Assessed Sex and Gender Information Value Date Recorded Sex Assigned at Not on file Legal Sex Male 7:15 PM CDT Gender Identity Not on file Sexual Orientation Not on file documented as of this encounter Miscellaneous Notes * Telephone Encounter - Antonieta Angel RN - 03/10/2020 3:49 PM CDT Order pended * Telephone Encounter - Radha Tai - 03/10/2020 3:21 PM CDT Patient calling in for refill on Lisinopril 20 mg 1 qd, uses [facility] in [place]. States the pharmacy says they faxed us a request. documented in this encounter Plan of Treatment Not on file documented as of this encounter Visit Diagnoses Not on filedocumented in this encounter Care Teams Drying Machine Receiver Relationship Specialty Start Date End Date Charles Vogel MD [address] [place] [address] PCP - General Internal Medicine 02/21/19 documented as of this encounter
--- OUTSIDE RECORDS SUMMARY | 2024-05-13 11:08 | XMS_ITS | Encounter Summary ---
Author Organization [facility] Address [address] [place] [address] Phone Care Team Providers Care Senior Qa Engineer Name Role Phone Charles Vogel MD Primary Care Provider Reason for Visit * Reason Comments Medication Refill Encounter Details Date Type Department Care Team (Late st Contact Info) Description 01/23/2020 Refill [facility] - Internal Medicine - [place] [address] [place] [phone] Charles Vogel MD [address] [place] [address] Medication Refill Social History Tobacco Use Types Packs/Day Years Used Date Smoking Tobacco: Never Assessed Sex and Gender Information Value Date Recorded Sex Assigned at Not on file Legal Sex Male 7:15 PM CDT Gender Identity Not on file Sexual Orientation Not on file documented as of this encounter Miscellaneous Notes * Telephone Encounter - Antonieta Angel RN - 01/24/2020 8:58 AM CDT Please review and sign. documented in this encounter Plan of Treatment Not on file documented as of this encounter Visit Diagnoses Not on filedocumented in this encounter Care Teams Senior Qa Engineer Relationship Specialty Start Date End Date Charles Vogel MD [address] [place] [address] PCP - General Internal Medicine 02/21/19 documented as of this encounter
--- OUTSIDE RECORDS SUMMARY | 2024-05-13 11:08 | XMS_ITS | Encounter Summary ---
Author Organization [facility] Address [address] [place] [address] Phone Care Team Providers Care Search Engineer Name Role Phone Charles Vogel MD Primary Care Provider Encounter Details Date Type Department Care Team (Late st Contact Info) Description 03/11/2020 Telephone [facility] - Internal Medicine - [place] [address] [place] [address] Cahrles Vogel MD [address] [place] [address] Social History Tobacco Use Types Packs/Day Years Used Date Smoking Tobacco: Never Assessed Sex and Gender Information Value Date Recorded Sex Assigned at Not on file Legal Sex Male 7:15 PM CDT Gender Identity Not on file Sexual Orientation Not on file documented as of this encounter Miscellaneous Notes * Telephone Encounter - Antonieta Angel RN - 03/11/2020 10:18 AM CDT Pharmacy changed * Telephone Encounter - Antonieta Angel RN - 03/11/2020 10:17 AM CDT ----- Message from Bety Bach sent at 03/11/2020 8:35 AM CDT ----- Regarding: [facility] HAS CHANGED PHARMACIES AND MEDICINE WAS SENT TO [facility]ER[facility],. SHERI DID LABEL SEWER FROM THAT PHARMACY BUT WOULD RATHER NOT. NEW PHARMACY ----[facility] Call back number:[phone] documented in this encounter Plan of Treatment Not on file documented as of this encounter Visit Diagnoses Not on filedocumented in this encounter Care Teams Search Engineer Relationship Specialty Start Date End Date Charles Vogel MD [address] [place] [address] PCP - General Internal Medicine 02/21/19 documented as of this encounter
--- OUTSIDE RECORDS SUMMARY | 2024-05-13 11:08 | XMS_ITS | Encounter Summary ---
Author Organization [employer] Care Team Providers Care Gasser Machine Operator Name Role Phone Charles Vogel MD Primary Care Provider [phone] Encounter Details Date Type Department Care Team (Latest Contact Info) Description 06/18/2020 Travel Social History Tobacco Use Types Packs/Day [...] have Coronavirus / COVID-19? No / Unsure 06/18/2020 7:35 AM EPITAXIAL REACTOR TECHNICIAN documented as of this encounter Plan of Treatment Not on file documented as of this encounter Visit Diagnoses Not on filedocumented in this encounter Care Teams Gasser Machine Operator Relationship Specialty Start Date End Date Charles Vogel MD [address] [place] [address] PCP - General Internal Medicine 02/21/19 documented as of this encounter
--- OUTSIDE RECORDS SUMMARY | 2024-05-13 11:08 | XMS_ITS | Encounter Summary ---
Author Organization [facility] Address [address] [place] [address] Phone Care Team Providers Care Electric Arc Welder Name Role Phone Charles Vogel MD Primary Care Provider [phone] Reason for Referral * Radiology Services (Routine) - Closed Specialty Diagnoses / Procedures Referred By Horacio espinoza Referred To Contact Radiology Diagnoses Abnormal liver function test Procedures US ABDOMEN COMPLETE Charles Vogel MD [address] [place] [address] Phone: tel: fax: Referral ID Status Reason Start Date Expiration Date Visits Re quested Visits Authorized [id number] Closed 06/06/2020 1 1 TENANCE SERVICE TECHNICIAN Reason for Visit * Radiology Services (Routine) - Closed Specialty Diagnoses / Procedures Referred By Horacio espinoza Referred To Contact Radiology Diagnoses Abnormal liver function test Procedures US ABDOMEN COMPLETE Charles Vogel MD [address] [place] [address] Phone: tel: fax: Referral ID Status Reason Start Date Expiration Date Visits Re quested Visits Authorized [id number] Closed 06/06/2020 1 1 Encounter Details Date Type Department Care Team (Late st Contact Info) Description 06/18/2020 7:48 AM MAINTENANCE SERVICE TECHNICIAN - 06/18/2020 11:59 PM MAINTENANCE SERVICE TECHNICIAN Hospital Encounter [facility] Ultrasound [address] [place] [address] Charles Vogel MD [address] [place] [address] Discharge Disposition: Discharged to home or Selfcare [...] COVID-19? No / Unsure 06/18/2020 7:35 AM MAINTENANCE SERVICE TECHNICIAN documented as of this encounter Medications at Time of Discharge amLODIPine (NORVASC) 5 MG TabletIndications :Essential hypertension, benign Take 1 Tab by mouth 2 times daily. 180 Tab 04/02/2020 06/20/2020 atorvastatin (LIPITOR) 20 MG Tablet TAKE 1 TABLET BY MOUTH EVERY NIGHT 30 Tab 1 05/19/2020 12/11/2020 lisinopril (PRINIVIL, ZESTRIL) 20 MG Tablet Take 1 Tab by mouth daily. 90 Tab 03/24/2020 06/20/2020 documented as of this encounter Plan of Treatment Not on file documented as of this encounter Procedures Procedure Name Priority Date/Time Associated Diagnosis Comments US ABDOMEN COMPLETE Routine 06/18/2020 8 :33 AM MAINTENANCE SERVICE TECHNICIAN Abnormal liver function test documented in this encounter Results * US ABDOMEN COMPLETE (06/18/2020 8:33 AM MAINTENANCE SERVICE TECHNICIAN) Anatomical Region Laterality Modality Abdomen N/A Ultrasound 06/18/2020 3:49 PM MAINTENANCE SERVICE TECHNICIAN Impressions 06/18/2020 3:52 PM MAINTENANCE SERVICE TECHNICIAN IMPRESSION: ?? 1. ?? Increased hepatic echogenicity, as seen with steatosis. 2. ??0.7 cm nodular echogenicity adherent to the gallbladder wall, possibly a polyp or adherent sludge. ??Recommend follow-up ultrasound in 6 months. Narrative 06/18/2020 3:52 PM MAINTENANCE SERVICE TECHNICIAN EXAM DESCRIPTION: ?? US ABDOMEN COMPLETE REASON FOR STUDY: ?? Abnormal results of liver function studies Elevated LFTs Duration = 2 months TECHNIQUE: ??Grayscale images acquired of the abdomen and recorded on PACS. Additional selected color Doppler and spectral images recorded. COMPARISON: ??None FINDINGS: ??PANCREAS: ??Visualized portions of the pancreas are within normal limits. Portions of the pancreatic body and tail are obscured due to bowel gas. LIVER: ??No visualized lesion. ??Increased echogenicity. ??Main portal vein is patent with antegrade flow. GALLBLADDER: ??0.7 cm nodular focus of increased echogenicity adherent to the gallbladder wall, possibly related to adherent sludge or polyp. ??No shadowing cholelithiasis. ??No gallbladder wall thickening or pericholecystic fluid. No positive sonographic Ashton's sign reported. BILIARY: ??There is no intrahepatic or extrahepatic biliary ductal dilatation. Common bile duct measures ??0.3 cm. INFERIOR VENA CAVA: ??Normal flow. AORTA: ??No aneurysm. RIGHT KIDNEY: ??Normal size. Normal echogenicity. No solid mass or cyst. ??No hydronephrosis. Measures ??10.1 cm in length. LEFT KIDNEY: ??Normal size. Normal echogenicity. No solid mass or cyst. No hydronephrosis. Measures ??10.8 cm in length. SPLEEN: ??Normal size. No solid masses. PERITONEAL AND PLEURAL SPACES: ??No ascites or effusions. OTHER: ??No other significant finding. THIS IS AN ELECTRONICALLY VERIFIED FINAL REPORT 06/18/2020 3:49 PM - Electronically signed by Larry Carlos BG: D: ??06/18/2020 3:49 PM T: ??06/18/2020 3:49 PM Report ID: [id number] Reading Location: ??[id number] Procedure Note Larry Carlos MD - 06/18/2020 EXAM DESCRIPTION: US ABDOMEN COMPLETE REASON FOR STUDY: Abnormal results of liver function studies Elevated LFTs Duration = 2 months TECHNIQUE: Grayscale images acquired of the abdomen and recorded on PACS. Additional selected color Doppler and spectral images recorded. COMPARISON: None FINDINGS: PANCREAS: Visualized portions of the pancreas are within normal limits. Portions of the pancreatic body and tail are obscured due to bowel gas. LIVER: No visualized lesion. Increased echogenicity. Main portal vein is patent with antegrade flow. GALLBLADDER: 0.7 cm nodular focus of increased echogenicity adherent to the gallbladder wall, possibly related to adherent sludge or polyp. No shadowing cholelithiasis. No gallbladder wall thickening or pericholecystic fluid. No positive sonographic Ashton's sign reported. BILIARY: There is no intrahepatic or extrahepatic biliary ductal dilatation. Common bile duct measures 0.3 cm. INFERIOR VENA CAVA: Normal flow. AORTA: No aneurysm. RIGHT KIDNEY: Normal size. Normal echogenicity. No solid mass or cyst. No hydronephrosis. Measures 10.1 cm in length. LEFT KIDNEY: Normal size. Normal echogenicity. No solid mass or cyst. No hydronephrosis. Measures 10.8 cm in length. SPLEEN: Normal size. No solid masses. PERITONEAL AND PLEURAL SPACES: No ascites or effusions. OTHER: No other significant finding. THIS IS AN ELECTRONICALLY VERIFIED FINAL REPORT 06/18/2020 3:49 PM - Electronically signed by Larry Carlos BG: BG Report ID: [id number] Reading Location: [place] [id number] IMPRESSION: 1. Increased hepatic echogenicity, as seen with steatosis. 2. 0.7 cm nodular echogenicity adherent to the gallbladder wall, possibly a polyp or adherent sludge. Recommend follow-up ultrasound in 6 months. us Charles Vogel MD [facility] [place] ORDERABLES Final Res ult documented in this encounter Visit Diagnoses Diagnosis Abnormal liver function test Other abnormal blood chemistry documented in this encounter Care Teams Electric Arc Welder Relationship Specialty Start Date End Date Charles Vogel MD [address] [place] [address] PCP - General Internal Medicine 02/21/19 documented as of this encounter
--- OUTSIDE RECORDS SUMMARY | 2024-05-13 11:08 | XMS_ITS | Encounter Summary ---
Author Organization [facility] Address [address] [place] [address] Phone Care Team Providers Care Drum Tender Name Role Phone Charles Vogel MD Primary Care Provider [phone] Reason for Referral * Radiology Services (Routine) - Closed Specialty Diagnoses / Procedures Referred By Contac t Referred To Contact Radiology Diagnoses Abnormal liver function test Procedures US ABDOMEN COMPLETE Charles Vogel MD [address] [place] [address] Phone: tel: fax: Referral ID Status Reason Start Date Expiration Date Visits Re quested Visits Authorized [id number] Closed 06/06/2020 1 1 COVERING MOLDER Encounter Details Date Type Department Care Team (Late st Contact Info) Description 06/06/2020 Telephone [facility] - Internal Medicine - [place] [address] [place] [id number] Charles Vogel MD [address] [place] [address] Social History Tobacco Use Types Packs/Day Years Used Date Smoking Tobacco: Never Assessed Sex and Gender Information Value Date Recorded Sex Assigned at Not on file Legal Sex Male 7:15 PM CDT Gender Identity Not on file Sexual Orientation Not on file documented as of this encounter Miscellaneous Notes * Telephone Encounter - Antonieta Angel RN - 06/11/2020 10:21 AM PIPE COVERING MOLDER Phoned patient with lab results and provider's recommendations. Patient aware and verbalized understanding. COVERING MOLDER * Telephone Encounter - Antonieta Angel RN - 06/06/2020 1:51 PM CST Attempted to call patient with results, no answer at this time. Left message to call back. COVERING MOLDER * Telephone Encounter - Antonieta Angel RN - 06/06/2020 1:45 PM CST ----- Message from Charles Vogel MD sent at 06/06/2020 12:58 PM PIPE COVERING MOLDER ----- ALT is worse than before. He needs hepatitis screening blood tests and ultrasound of liver. COVERING MOLDER documented in this encounter Plan of Treatment Not on file documented as of this encounter Results * HEPATITIS C ANTIBODY (06/18/2020 8:37 AM PIPE COVERING MOLDER) hepatitis C antibody 0.13 <1 S/CO [facility] [id number] 06/18/2020 6:45 PM PIPE COVERING MOLDER [facility] Comment: Signal/Cutoff ratio ??< 0.79 is Nondetected Signal/Cutoff ratio 0.80-0.99 is Grayzone Signal/Cutoff ratio > 0.99 is Detected Supplemental assays are recommended if signal/cutoff ratio is >/=1.00. ??Signal/cutoff ratio result >/= 5.00 is 97% predictive of positivity for recombinant immunoblot assay (RIBA) and will be reported to the [place] Department [facility] Public [facility] as required. Blood Venipuncture / Unknown 06/18/2020 8:37 AM PIPE COVERING MOLDER 06/18/2020 9:07 AM PIPE COVERING MOLDER us Charles Vogel MD CHEMISTRY ORDERABLES Final Result Performing Organization Address [facility] Co de Phone Number [facility] [address] [place] [address], [place] * HEPATITIS B SURFACE ANTIGEN (HBSAG) (06/18/2020 8:37 AM PIPE COVERING MOLDER) HEPATITIS B SURFACE ANTIGEN NON DETECTED NON DETECTED [facility] [id number] 06/18/2020 6:45 PM PIPE COVERING MOLDER [facility] Comment:A nonreactive test r esult does not exclude the possibility of exposure to or infection with Hepatitis B virus. A nonreactive test result in individuals with prior exposure to hepatitis B may be due to antigen levels below the detection limit of this assay or lack of antigen reactivity to the antibodies in this assay. Blood Venipuncture / Unknown 06/18/2020 8:37 AM PIPE COVERING MOLDER 06/18/2020 9:07 AM PIPE COVERING MOLDER Charles Vogle MD CHEMISTRY ORDERABLES Final Result Performing Organization Address [facility] Co de Phone Number [facility] [address] [place] [address], [place] * US ABDOMEN COMPLETE (06/18/2020 8:33 AM PIPE COVERING MOLDER) Anatomical Region Laterality Modality Abdomen N/A Ultrasound 06/18/2020 3:49 PM PIPE COVERING MOLDER Impressions 06/18/2020 3:52 PM PIPE COVERING MOLDER IMPRESSION: ?? 1. ?? Increased hepatic echogenicity, as seen with steatosis. 2. ??0.7 cm nodular echogenicity adherent to the gallbladder wall, possibly a polyp or adherent sludge. ??Recommend follow-up ultrasound in 6 months. Narrative 06/18/2020 3:52 PM PIPE COVERING MOLDER EXAM DESCRIPTION: ?? US ABDOMEN COMPLETE REASON [...] Electronically signed by Larry Carlos BG: BG D: ??06/18/2020 3:49 PM T: ??06/18/2020 3:49 PM Report ID: [id number] Reading Location: ??[id number] Procedure Note Larry Carlos MD - 06/18/2020 [...] - Electronically signed by Larry Carlos BG: Report ID: [id number] Reading Location: [place] [address] IMPRESSION: 1. Increased hepatic echogenicity, as seen with steatosis. 2. 0.7 cm nodular echogenicity adherent to the gallbladder wall, possibly a polyp or adherent sludge. Recommend follow-up ultrasound in 6 months. us Charles Vogel MD IMG US ORDERABLES Final Res ult documented in this encounter Visit Diagnoses Diagnosis Abnormal liver function test- Primary Other abnormal blood chemistry Abnormal liver function test Other abnormal blood chemistry documented in this encounter Care Teams Drum Tender Relationship Specialty Start Date End Date Charles Vogel MD [address] [place] [address] PCP - General Internal Medicine 02/21/19 documented as of this encounter
--- OUTSIDE RECORDS SUMMARY | 2024-05-13 11:08 | XMS_ITS | Encounter Summary ---
Author Organization [facility] Address [address] [place] [address] Phone Care Team Providers Care Process Safety Management Engineer Name Role Phone Charles Vogel MD Primary Care Provider Encounter Details Date Type Department Care Team (Late st Contact Info) Description 10/21/2020 Telephone [facility] - Internal Medicine - [place] [address] [place] [address] Charles Vogel MD [address] [place] [address] Social History Tobacco Use Types Packs/Day Years Used Date Smoking Tobacco: Never Assessed Sex and Gender Information Value Date Recorded Sex Assigned at Not on file Legal Sex Male 7:15 PM CDT Gender Identity Not on file Sexual Orientation Not on file documented as of this encounter Miscellaneous Notes * Telephone Encounter - Antonieta Angel RN - 10/21/2020 2:53 PM CDT ----- Message from Charles Vogel MD sent at 10/21/2020 2:51 PM CDT ----- Liver function tests normal. He needs follow-up visit for hypertension documented in this encounter Plan of Treatment Not on file documented as of this encounter Visit Diagnoses Not on filedocumented in this encounter Care Teams Process Safety Management Engineer Relationship Specialty Start Date End Date Charles Vogel MD [address] [place] [address] PCP - General Internal Medicine 02/21/19 documented as of this encounter
--- OUTSIDE RECORDS SUMMARY | 2024-05-13 11:08 | XMS_ITS | Encounter Summary ---
Author Organization [facility] Address [address] [place] [address] Phone Care Team Providers Care Construction Project Assistant Name Role Phone Charles Vogel MD Primary Care Provider [phone] Reason for Visit * Reason Comments Medication Refill Encounter Details Date Type Department Care Team (Late st Contact Info) Description 05/17/2020 Refill [facility] - Internal Medicine - [place] [address] [place] [phone] Charles Vogel MD [address] [place] [address] Medication Refill Social History Tobacco Use Types Packs/Day Years Used Date Smoking Tobacco: Never Assessed Sex and Gender Information Value Date Recorded Sex Assigned at Not on file Legal Sex Male 7:15 PM CDT Gender Identity Not on file Sexual Orientation Not on file documented as of this encounter Miscellaneous Notes * Telephone Encounter - Antonieta Angel RN - 05/19/2020 9:05 AM CST Please review and sign. 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
--- OUTSIDE RECORDS SUMMARY | 2024-05-13 11:08 | XMS_ITS | Encounter Summary ---
Author Organization [facility] Address [address] [place] [address] Phone Care Team Providers Care Incident Response Analyst Name Role Phone Chrales Vogel MD Primary Care Provider [phone] Reason for Visit * Reason Onset Date Comments Medication Refill 04/01/2020 Medication Refill 04/02/2020 Encounter Details Date Type Department Care Team (Late st Contact Info) Description 04/01/[address] [facility] - Internal Medicine - [place] [address] [place] [address] Charles Vogel MD [address] [place] [address] Medication Refill; Medication Refill Social History Tobacco Use Types Packs/Day Years Used Date Smoking Tobacco: Never Assessed Sex and Gender Information Value Date Recorded Sex Assigned at Not on file Legal Sex Male 7:15 PM CDT Gender Identity Not on file Sexual Orientation Not on file documented as of this encounter Miscellaneous Notes * Telephone Encounter - Pao Duran RN - 04/02/2020 11:05 AM CST Call to pt who is aware. ING VESSEL MATE * Telephone Encounter - Pao Duran RN - 04/02/2020 10:42 AM CST Patient recieveda 7 day supply on 03/21/2020: okay to fill-this rn placed order and d/c old order todecrease confusion. ING VESSEL MATE * Telephone Encounter - Charles Vogel MD - 04/01/2020 4:48 PM FISHING VESSEL MATE Please check with the pharmacy. If they have not received the Rx then okay to refill ING VESSEL MATE * Telephone Encounter - Pao Duran RN - 04/01/2020 2:34 PM CST It looks like he had 180 tablets filled on 03/24/2020 I don't know how he would be out so soon. Please review: much too early to fill. ING VESSEL MATE * Telephone Encounter - Pao Duran RN - 04/01/2020 2:32 PM CST ----- Message from August Correa sent at 04/01/2020 2:27 PM FISHING VESSEL MATE ----- Regarding: REFILL REQUEST HAVE YOU CALLED YOUR PHARMACY? yes MEDICATION(S): amlodipine 5 mg 2 x day PHARMACY: [id number] [place], [place] - [address] [facility] [address] [facility] [address] CALL BACK NUMBER:[phone] Patient only received 14 pills on last refil and is going out of town needs another refill ING VESSEL MATE documented in this encounter Plan of Treatment Not on file documented as of this encounter Visit Diagnoses Diagnosis Essential hypertension, benign- Primary documented in this encounter Care Teams Incident Response Analyst Relationship Specialty Start Date End Date Charles Vogel MD [address] [place] [address] PCP - General Internal Medicine 02/21/19 documented as of this encounter
--- OUTSIDE RECORDS SUMMARY | 2024-05-13 11:08 | XMS_ITS | Encounter Summary ---
Author Organization [facility] Address [address] [place] [address] Phone Care Team Providers Care Drag Out Man Name Role Phone Charles Vogel MD Primary Care Provider Encounter Details Date Type Department Care Team (Late st Contact Info) Description 02/08/2020 Telephone [facility] - Internal Medicine - [place] [address] [place] [address] Charles Vogel MD [address] [place] [address] Social History Tobacco Use Types Packs/Day Years Used Date Smoking Tobacco: Never Assessed Sex and Gender Information Value Date Recorded Sex Assigned at Not on file Legal Sex Male 7:15 PM CDT Gender Identity Not on file Sexual Orientation Not on file documented as of this encounter Miscellaneous Notes * Telephone Encounter - Antonieta Angel RN - 02/13/2020 3:15 PM CDT Addressed in separate encounter. * Telephone Encounter - Antonieta Angel RN - 02/08/2020 4:35 PM CDT Printed and given to provider * Telephone Encounter - Antonieta Angel RN - 02/08/2020 4:35 PM CDT ----- Message from August Correa sent at 02/08/2020 3:39 PM CDT ----- Regarding: LAB RESULTS REQUEST PATIENT IS REQUESTING THEIR LAB RESULTS FROM [facility]y Done a week ago would like results Call back #: [phone] documented in this encounter Plan of Treatment Not on file documented as of this encounter Visit Diagnoses Not on filedocumented in this encounter Care Teams Drag Out Man Relationship Specialty Start Date End Date Charles Vogel MD [address] [place] [address] PCP - General Internal Medicine 02/21/19 documented as of this encounter
--- OUTSIDE RECORDS SUMMARY | 2024-05-13 11:08 | XMS_ITS | Encounter Summary ---
Author Organization [facility] Address [address] [place] [address] Phone Care Team Providers Care Associate Professor Computer Science Name Role Phone Charles Vogel MD Primary Care Provider Encounter Details Date Type Department Care Team (Late st Contact Info) Description 02/13/2020 Telephone [facility] - Internal Medicine - [place] [address] [place] [address] Charles Vogel MD [address] [place] [address] Social History Tobacco Use Types Packs/Day Years Used Date Smoking Tobacco: Never Assessed Sex and Gender Information Value Date Recorded Sex Assigned at Not on file Legal Sex Male 7:15 PM CDT Gender Identity Not on file Sexual Orientation Not on file documented as of this encounter Miscellaneous Notes * Telephone Encounter - Zaina Perry CMA - 02/13/2020 2:10 PM CDT Called patient with his lab results. Left a message on voice mail. Labs are normal. documented in this encounter Plan of Treatment Not on file documented as of this encounter Visit Diagnoses Not on filedocumented in this encounter Care Teams Associate Professor Computer Science Relationship Specialty Start Date End Date Charles Vogel MD [address] [place] [address] PCP - General Internal Medicine 02/21/19 documented as of this encounter
--- OUTSIDE RECORDS SUMMARY | 2024-05-13 11:08 | XMS_ITS | Encounter Summary ---
Author Organization [facility] Address [address] [place] [address] Phone Care Team Providers Care Clinical Transplant Coordinator Name Role Phone Charles Vogel MD Primary Care Provider Encounter Details Date Type Department Care Team (Late st Contact Info) Description 04/22/2020 Telephone [facility] - Internal Medicine - [place] [address] [place] [address] Charles Vogel MD [address] [place] [address] Social History Tobacco Use Types Packs/Day Years Used Date Smoking Tobacco: Never Assessed Sex and Gender Information Value Date Recorded Sex Assigned at Not on file Legal Sex Male 7:15 PM CDT Gender Identity Not on file Sexual Orientation Not on file documented as of this encounter Miscellaneous Notes * Telephone Encounter - Antonieta Angel RN - 04/22/2020 1:04 PM CST Sent to [facility] R ENERGY SYSTEMS DESIGNER * Telephone Encounter - Charles Vogel MD - 04/22/2020 11:22 AM SOLAR ENERGY SYSTEMS DESIGNER Needs Lipid, ALT, AST R ENERGY SYSTEMS DESIGNER * Telephone Encounter - Antonieta Angel RN - 04/22/2020 10:47 AM SOLAR ENERGY SYSTEMS DESIGNER When looking at last phone visit I see that you said that you wanted to recheck lipid panel and theother is not coming up. I know that when dictating sometimes it puts it in differently. R ENERGY SYSTEMS DESIGNER documented in this encounter Plan of Treatment Not on file documented as of this encounter Results * AST (SGOT) (04/23/2020) Blood Charles Vogel MD CHEMISTRY ORDERABLES Final Result * ALT (SGPT) (04/23/2020) Blood Charles Vogel MD CHEMISTRY ORDERABLES Final Result * LIPID PANEL (04/23/2020) TOTAL CHOLESTEROL 154 LDL 96 0 - 130 mg/dL HDL 38 mg/dL Blood 04/23/2020 Charles Vogel MD CHEMISTRY ORDERABLES Final Result documented in this encounter Visit Diagnoses Diagnosis Mixed hyperlipidemia- Primary Medication management Encounter for other specified aftercare documented in this encounter Care Teams Clinical Transplant Coordinator Relationship Specialty Start Date End Date Charles Vogel MD [address] [place] [address] PCP - General Internal Medicine 02/21/19 documented as of this encounter
--- OUTSIDE RECORDS SUMMARY | 2024-05-13 11:08 | XMS_ITS | Encounter Summary ---
Author Organization [facility] Address [address] [place] [address] Phone Care Team Providers Care Capture Manager Name Role Phone Charles Vogel MD Primary Care Provider Encounter Details Date Type Department Care Team (Late st Contact Info) Description 11/19/2020 Refill [facility] - Internal Medicine - [place] [address] [place] [address] Charles Vogel MD [address] [place] [address] Social History Tobacco Use Types Packs/Day Years Used Date Smoking Tobacco: Never Assessed Sex and Gender Information Value Date Recorded Sex Assigned at Not on file Legal Sex Male 7:15 PM CDT Gender Identity Not on file Sexual Orientation Not on file documented as of this encounter Miscellaneous Notes * Telephone Encounter - Elsa George RN - 11/19/2020 9:56 AM CDT Requesting refill * Telephone Encounter - Elsa George RN - 11/19/2020 9:56 AM CDT ----- Message from August Sunny sent at 11/19/2020 9:23 AM CDT ----- Regarding: PATIENT MEDICAL QUESTION Refill request, patient is going on vacation for a couple weeks and will run out while gone. Pleaseauthorize refill Medication: Lisinopril Pharmacy: [id number] - [place], [place] - [address] [facility] [address] [facility] [address] Call back # [phone] documented in this encounter Plan of Treatment Not on file documented as of this encounter Visit Diagnoses Not on filedocumented in this encounter Care Teams Capture Manager Relationship Specialty Start Date End Date Charles Vogel MD [address] [place] [address] PCP - General Internal Medicine 02/21/19 documented as of this encounter
--- OUTSIDE RECORDS SUMMARY | 2024-05-13 11:08 | XMS_ITS | Encounter Summary ---
Author Organization [facility] Address [address] [place] [address] Phone Care Team Providers Care Vessel Engineer Name Role Phone Charles Vogel MD Primary Care Provider Reason for Visit * Reason Onset Date Comments Medication Refill 01/24/2020 Encounter Details Date Type Department Care Team (Late st Contact Info) Description 01/23/2020 Refill [facility] - Internal Medicine - [place] [address] [place] [id number] Charles Vogel MD [address] [place] [address] Medication Refill Social History Tobacco Use Types Packs/Day Years Used Date Smoking Tobacco: Never Assessed Sex and Gender Information Value Date Recorded Sex Assigned at Not on file Legal Sex Male 7:15 PM CDT Gender Identity Not on file Sexual Orientation Not on file documented as of this encounter Miscellaneous Notes * Telephone Encounter - Antonieta Angel RN - 01/23/2020 1:59 PM CDT Order pended * Telephone Encounter - Antonieta Angel RN - 01/23/2020 1:58 PM CDT ----- Message from Bety Bcah sent at 01/23/2020 11:49 AM CDT ----- Regarding: RX R/F HAVE YOU CALLED YOUR PHARMACY? yes Medication: AMLODIPINE 5 MG Pharmacy:[facility] Call back number:[phone] DETAILS documented in this encounter Plan of Treatment Not on file documented as of this encounter Visit Diagnoses Not on filedocumented in this encounter Care Teams Vessel Engineer Relationship Specialty Start Date End Date Charles Vogel MD [address] [place] [address] PCP - General Internal Medicine 02/21/19 documented as of this encounter
--- OUTSIDE RECORDS SUMMARY | 2024-05-13 11:08 | XMS_ITS | Encounter Summary ---
Author Organization [facility] Address [address] [place] [place] [address] Phone Care Team Providers Care Barkeeper Name Role Phone Charles Vogel MD Primary Care Provider [phone] Reason for Referral * Radiology Services (Routine) - Closed Specialty Diagnoses / Procedures Referred By Contac t Referred To Contact Radiology Diagnoses Gallbladder polyp Procedures US ABDOMEN LIMITED LEVEL 3 THREE ORGAN Charles Vogel MD [address] [place] [address] Phone: tel: fax: Referral ID Status Reason Start Date Expiration Date Visits Re quested Visits Authorized [id number] Closed 12/11/2020 1 1 Reason for Visit * Reason Comments Follow-up 6 mo f/u Encounter Details Date Type Department Care Team (Late st Contact Info) Description 12/11/2020 9:30 AM CDT Office Visit [facility] - Internal Medicine - [place] [address] [place] [id number] Charles Vogel MD [address] [place] [address] Essential hypertension, benign (Primary Dx); Mixed hyperlipidemia; Gallbladder polyp; Nonalcoholic steatohepatitis Discharge Disposition: Discharged to home or Selfcare [...] Sign Reading Time Taken Comments Blood Pressure 138/76 12/11/2020 8:56 AM CDT Pulse 96 12/11/2020 8:56 AM CDT Temperature 36.8 ??C (98.2 ??F) 12/11/2020 8:56 AM CD T Respiratory Rate - - Oxygen Saturation 98% 12/11/2020 8:56 AM CDT Inhaled Oxygen Concentration - - Weight 114.3 kg (252 lb) 12/11/2020 8:56 AM CDT Height 180.3 cm (5' 11 ) 12/11/2020 8:56 AM CDT Body Mass Index 35.15 12/11/2020 8:56 AM CDT documented in this encounter Progress Notes * Zaina Perry, SIMULATION EDUCATOR - 12/11/2020 9:30 AM CDT Chuck Guzman Barlow, 25 y.o., male is here for Follow-up (6 mo f/u) Medication Refills: Patient reports/denies need for medication refills. Orders Pended: no Requested Prescriptions No prescriptions requested or ordered in this encounter Home Medications Medication Sig Start Date End Date Taking? Authorizing Provider amLODIPine (NORVASC) 5 MG Tablet Take 1 Tablet by mouth 2 times daily. 09/12/20 Yes Robert Vogel MD atorvastatin (LIPITOR) 20 MG Tablet TAKE 1 TABLET BY MOUTH EVERY NIGHT 05/19/20 Yes Charles Vogel MD lisinopril (PRINIVIL, ZESTRIL) 20 MG Tablet Take 1 Tablet by mouth daily. 11/19/20 Yes Charles Vogel MD There are no discontinued medications. I have reviewed the home medication list with the patient and have reconciled discrepancies. The list is accurate to the best of my knowledge. Smoking Status: Social History Tobacco Use ??? Smoking status: Former Smoker Packs/day: 1.00 Types: Cigarettes Quit date: 08/11/2020 Years since quittin.3 ??? Smokeless tobacco: Current User Types: Chew Vaping Use ??? Vaping Use: Never used Substance Use Topics ??? Alcohol use: Yes ??? Drug use: Never Smoking Cessation Counseling Given: no Health Care Maintenance: Health Maintenance Due Topic Date Due ??? Human Papillomavirus (HPV) Immunization (2 - Male 3-dose series) 05/09/2013 ??? DTaP/Tdap/Td Immunization (7 - Td or Tdap) 08/10/2017 Orders Pended: no The following BPA's have been addressed with the patient today: Smoking and Depression * Charles Vogel MD - 12/11/2020 9:30 AM CDT PROGRESS NOTE [facility] - INTERNAL MEDICINE [address] [place] [address] PHONE: [phone] FAX: [phone] 12/11/2020 NAME: Chuck Barlow, : 1995, Assessment ASSESSMENT & PLAN: Return in about 6 months (around 06/13/2021) for htn. Diagnoses and all orders for this visit: Essential hypertension, benign Comments: Stable. Continue current medications Orders: - CMP (COMPREHENSIVE METABOLIC PANEL); Future - LIPID PANEL; Future Mixed hyperlipidemia Comments: Patient is off atorvastatin due to elevated LFT. Will repeat CMP, lipid profile and decide further treatment. Meanwhile continue to monitor diet. Orders: - CMP (COMPREHENSIVE METABOLIC PANEL); Future - LIPID PANEL; Future Gallbladder polyp Comments: Repeat ultrasound of liver and gallbladder for follow-up for gallbladder polyp. Orders: - US ABDOMEN LIMITED LEVEL 3 THREE ORGAN; Future Nonalcoholic steatohepatitis Comments: Weight loss advised. Check CMP, lipid profile Follow-up in 6 months, sooner if needed Chief Complaint Patient presents with ??? Follow-up 6 mo f/u HPI Patient is here for follow-up for hypertension other medical problems. Patient is feeling well. No chest pain or palpitation. No abdominal pain nausea vomiting. Tolerating medications well. Blood pressure at home remains less than 140/90. ROS Review of systems was negative, except as documented in HPI PHYSICAL EXAM VITALS: Wt Readings from Last 3 Encounters: 12/11/20 252 lb (114.3 kg) Temp Readings from Last 3 Encounters: 12/11/20 98.2 ??F (36.8 ??C) (Temporal) BP Readings from Last 3 Encounters: 12/11/20 138/76 Pulse Readings from Last 3 Encounters: 12/11/20 96 Physical Exam Vitals and nursing note reviewed. Constitutional: Appearance: Normal appearance. He is normal weight. HENT: Head: Normocephalic. Eyes: Extraocular Movements: Extraocular movements intact. Conjunctiva/sclera: Conjunctivae normal. Pupils: Pupils are equal, round, and reactive to light. Cardiovascular: Rate and Rhythm: Normal rate and regular rhythm. Pulses: Normal pulses. Heart sounds: Normal heart sounds. Pulmonary: Effort: Pulmonary effort is normal. Breath sounds: Normal breath sounds. Abdominal: General: Abdomen is flat. Bowel sounds are normal. Palpations: Abdomen is soft. Musculoskeletal: General: Normal range of motion. Cervical back: Normal range of motion and neck supple. Skin: General: Skin is warm and dry. Neurological: General: No focal deficit present. Mental Status: He is alert and oriented to person, place, and time. Psychiatric: Mood and Affect: Mood normal. Past medical, surgical, social and family history has been reviewed and updated as necessary. Medications and allergies has been reviewed and updated. No Known Allergies Current Outpatient Medications: ??? amLODIPine (NORVASC) 5 MG Tablet ??? lisinopril (PRINIVIL, ZESTRIL) 20 MG Tablet I educated Chuck regarding diagnoses and plan of care. He verbalizes understanding and will call theoffice if situation changes. Voice recognition software was utilized in this dictation. Despite proof reading, typographical errors and/or content errors may have occurred. By: Charles Vogel MD 12/11/2020 9:22 AM CDT documented in this encounter Plan of Treatment Not on file documented as of this encounter Results * (ABNORMAL) CMP (COMPREHENSIVE METABOLIC PANEL) (03/11/2021 10:57 AM CDT) SODIUM 139 136 - 144 mmol/L 03/11/2021 3:52 PM CDT [facility] POTASSIUM 4.0 3.5 - 5.1 mmol/L 03/11/2021 3:52 PM CDT [facility] CHLORIDE 105 100 - 110 mmol/L 03/11/2021 3:52 PM CDT [facility] CO2, VENOUS 22 22 - 32 mmol/L 03/11/2021 3:52 PM CDT [facility] ANION GAP 16.0 8.0 - 20.0 mmol/L 03/11/2021 3:52 PM CDT [facility] GLUCOSE 102(H) 70 - 99 mg/dL 03/11/2021 3:52 PM CDT [facility] BUN 15 6 - 20 mg/dL 03/11/2021 3:52 PM CDT [facility] CREATININE, BLOOD 0.73(L) 0.80 - 1.30 mg/dL 03/11/2021 3:52 PM CDT [facility] BUN/CREATININE RATIO 21(H) 12 - 20 ratio 03/11/2021 3:52 PM CDT [facility] TOTAL PROTEIN 7.6 6.0 - 8.3 g/dL 03/11/2021 3:52 PM CDT [facility] ALBUMIN 4.4 3.5 - 5.2 g/dL 03/11/2021 3:52 PM CDT [facility] Comment: The colormetric methods used for the determination of Albumin may lead to falsely elevated test results in patients suffering from renal failure or insufficiency due to interference with other proteins. A/G RATIO 1.4 1.0 - 2.0 03/11/2021 3:52 PM CDT [facility] CALCIUM 9.7 8.9 - 10.3 mg/dL 03/11/2021 3:52 PM CDT [facility] T BILI 0.7 <=1.2 mg/dL 03/11/2021 3:52 PM CDT [facility] SGOT (AST) 22 <=40 U/L 03/11/2021 3:52 PM CDT [facility] SGPT (ALT) 41 <=41 U/L 03/11/2021 3:52 PM CDT [facility] ALKALINE PHOSPHATASE 100 40 - 130 U/L 03/11/2021 3:52 PM CDT [facility] GFR, EST. NONAFRICAN >60 >=60 03/11/2021 3:52 PM CDT [facility] GFR, EST. >60 >=60 021 3:52 PM CDT [facility] Comment: Creatinine Clearance is the preferred criteria for selecting drug dose adjustments in renally impaired patients. ??The GFR is provided as additional pertinent clinical information. GFR is reported in mL/min/1.73 sq m. IS THE PATIENT REQUIRED TO BE FASTING? No 03/11/2021 3:52 PM CDT [facility] Blood Venipuncture / Unknown 03/11/2021 10:57 AM CDT 03/11/2021 10:57 AM CDT Charles Vogel MD CHEMISTRY ORDERABLES Final Result [facility] [address] [place] [address] * (ABNORMAL) LIPID PANEL (12/19/2020) TOTAL CHOLESTEROL 236 HDL 42 mg/dL LDL 163(A) 0 - 130 mg/dL Blood 12/19/2020 us Charles Vogel MD CHEMISTRY ORDERABLES Final Result * US LIVER, PANCREAS AND GALLBLADDER (12/17/2020 [...] PM T: ??12/17/2020 5:03 PM Report ID: [id number] Reading Location: ??[id number] Procedure Note Joseph More MD - 12/17/2020 [...] Joseph More M.D. JA: BRE Report ID: [id number] Reading Location: [id number] IMPRESSION: 0.6 cm gallbladder polyp, unchanged. Continued follow-up in 1 year. Charles Vogel MD [facility] ORDERABLES Final Res ult documented in this encounter Visit Diagnoses Diagnosis Essential hypertension, benign- Primary Mixed hyperlipidemia Gallbladder polyp Cholesterolosis of gallbladder Nonalcoholic steatohepatitis Other chronic nonalcoholic liver disease Gallbladder polyp Cholesterolosis of gallbladder documented in this encounter Additional Health Concerns Assessment Noted Time PHQ-9 Depression Total Score: 0 12/12/19 21 9:00 AM CDT documented as of this encounter Care Teams Barkeeper Relationship Specialty Start Date End Date Charles Vogel MD [address] [place] [address] PCP - General Internal Medicine 02/21/19 documented as of this encounter
--- OUTSIDE RECORDS SUMMARY | 2024-05-13 11:08 | XMS_ITS | Encounter Summary ---
Author Organization [facility] Address [address] [place] [address] Phone Care Team Providers Care Transportation Assistant Name Role Phone Charles Vogel MD Primary Care Provider [phone] Encounter Details Date Type Department Care Team (Late st Contact Info) Description 09/12/2020 Refill [facility] - Internal Medicine - [place] [address] [place] [address] Charles Vogel MD [address] [place] [address] Social History Tobacco Use Types Packs/Day Years Used Date Smoking Tobacco: Never Assessed Sex and Gender Information Value Date Recorded Sex Assigned at Not on file Legal Sex Male 7:15 PM CDT Gender Identity Not on file Sexual Orientation Not on file documented as of this encounter Miscellaneous Notes * Telephone Encounter - Radha Tai - 09/12/2020 4:06 PM CDT Patient requesting a refill on Lisinopril and Amlodipine documented in this encounter Plan of Treatment Not on file documented as of this encounter Visit Diagnoses Diagnosis Essential hypertension, benign documented in this encounter Care Teams Transportation Assistant Relationship Specialty Start Date End Date Charles Vogel MD [address] [place] [address] PCP - General Internal Medicine 02/21/19 documented as of this encounter
--- OUTSIDE RECORDS SUMMARY | 2024-05-13 11:08 | XMS_ITS | Encounter Summary ---
Author Organization [facility] Address [address] [place] [address] Phone Care Team Providers Care Secondary Art Teacher Name Role Phone Charles Vogel MD Primary Care Provider Reason for Visit * Reason Onset Date Comments Medication Refill 03/21/2020 Encounter Details Date Type Department Care Team (Late st Contact Info) Description 03/21/2020 Refill [facility] - Internal Medicine - [place] [address] [place] [id number] Charles Vogel MD [address] [place] [address] Medication Refill Social History Tobacco Use Types Packs/Day Years Used Date Smoking Tobacco: Never Assessed Sex and Gender Information Value Date Recorded Sex Assigned at Not on file Legal Sex Male 7:15 PM CDT Gender Identity Not on file Sexual Orientation Not on file documented as of this encounter Miscellaneous Notes * Telephone Encounter - Antonieta Angel RN - 03/21/2020 10:35 AM HIGH SCHOOL PHYSICAL EDUCATION TEACHER Order pended SCHOOL PHYSICAL EDUCATION TEACHER documented in this encounter Plan of Treatment Not on file documented as of this encounter Visit Diagnoses Not on filedocumented in this encounter Care Teams Secondary Art Teacher Relationship Specialty Start Date End Date Charles Vogel MD [address] [place] [address] PCP - General Internal Medicine 02/21/19 documented as of this encounter
--- OUTSIDE RECORDS SUMMARY | 2024-05-13 11:08 | XMS_ITS | Encounter Summary ---
Author Organization [facility] Address [address] [place] [address] Phone Care Team Providers Care Easter Bunny Name Role Phone Charles Vogel MD Primary Care Provider Reason for Visit * Reason Onset Date Comments Medication Refill 07/21/2020 Encounter Details Date Type Department Care Team (Late st Contact Info) Description 06/19/2020 Telephone [facility] - Internal Medicine - [place] [address] [place] [phone] Charles Vogel MD [address] [place] [address] Medication Refill Social History Tobacco [...] COVID-19? No / Unsure 06/18/2020 7:35 AM CLINICAL REVIEW SPECIALIST documented as of this encounter Miscellaneous Notes * Addendum Note - Antonieta Mccallum RN - 07/21/2020 2:09 PM CSTAddended by: ANTONIETA MCCALLUM on: 07/21/2020 02:09 PM Modules accepted: Orders ICAL REVIEW SPECIALIST * Telephone Encounter - Charles Vogel MD - 07/21/2020 1:37 PM CLINICAL REVIEW SPECIALIST Probably not related to Atorvastatin. He may stop Atorvastatin and we can repeat LFTs in one month and see if it get sbetter. ICAL REVIEW SPECIALIST * Telephone Encounter - Antonieta Mccallum RN - 06/20/2020 10:21 AM CLINICAL REVIEW SPECIALIST Patient was wondering if the Cholesterol medication could be causing the increase in his liver enzymes? Please advise. ICAL REVIEW SPECIALIST * Telephone Encounter - Antonieta Mccallum RN - 06/19/2020 8:04 AM CST ----- Message from Charles Vogel MD sent at 06/18/2020 5:01 PM CLINICAL REVIEW SPECIALIST ----- A truss sounds shows fatty liver. He needs to lose weight. Possible small nodule. Needs to repeat ultrasound in 6 months. Hepatitis B&C tests are negative ICAL REVIEW SPECIALIST ICAL REVIEW SPECIALIST documented in this encounter Plan of Treatment Not on file documented as of this encounter Results * HEPATIC FUNCTION PANEL (10/17/2020) Blood us Charles Vogel MD CHEMISTRY ORDERABLES Final Result documented in this encounter Visit Diagnoses Diagnosis Abnormal liver function test- Primary Other abnormal blood chemistry Essential hypertension, benign documented in this encounter Care Teams Easter Bunny Relationship Specialty Start Date End Date Charles Vogel MD [address] [place] [address] PCP - General Internal Medicine 02/21/19 documented as of this encounter
--- OUTSIDE RECORDS SUMMARY | 2024-05-13 11:08 | XMS_ITS | Encounter Summary ---
Author Organization [facility] Address [address] [place] [address] Phone Care Team Providers Care Knife Sharpener Name Role Phone Charles Vogel MD Primary Care Provider [phone] Reason for Visit * Reason Comments Medication Refill Encounter Details Date Type Department Care Team (Late st Contact Info) Description 02/06/2020 Refill [facility] - Internal Medicine - [place] [address] [place] [phone] Charles Vogel MD [address] [place] [address] Medication Refill Social History Tobacco Use Types Packs/Day Years Used Date Smoking Tobacco: Never Assessed Sex and Gender Information Value Date Recorded Sex Assigned at Not on file Legal Sex Male 7:15 PM CDT Gender Identity Not on file Sexual Orientation Not on file documented as of this encounter Miscellaneous Notes * Telephone Encounter - Antonieta Angel RN - 02/06/2020 7:58 AM CDT Please review and sign. documented in this encounter Plan of Treatment Not on file documented as of this encounter Visit Diagnoses Not on filedocumented in this encounter Care Teams Knife Sharpener Relationship Specialty Start Date End Date Charles Vogel MD [address] [place] [address] PCP - General Internal Medicine 02/21/19 documented as of this encounter
--- OUTSIDE RECORDS SUMMARY | 2024-05-13 11:08 | XMS_ITS | Encounter Summary ---
Author Organization [facility] Address [address] [place] [address] Phone Care Team Providers Care Twisting Press Operator Name Role Phone Charles Vogel MD Primary Care Provider Reason for Visit * Reason Comments Hypertension Encounter Details Date Type Department Care Team (Late st Contact Info) Description 03/24/2020 2:15 PM ESOL TEACHER ASSISTANT Telemedicine [facility] - Internal Medicine [place] [address] [place] [address] Charles Vogel MD [address] [place] [address] Essential hypertension, benign (Primary Dx); Mixed hyperlipidemia Social History Tobacco Use Types Packs/Day Years Used Date Smoking Tobacco: Never Assessed Sex and Gender Information Value Date Recorded Sex Assigned at Not on file Legal Sex Male 7:15 PM CDT Gender Identity Not on file Sexual Orientation Not on file documented as of this encounter Progress Notes * Charles Vogel MD - 03/24/2020 2:15 PM CST PROGRESS NOTE [facility] MEDICINE [address] [place] [address] 03/24/2020 Chuck Barlow 1995 Chief Complaint Patient presents with ??? Hypertension Patient telephone visit for follow-up for hypertension. Patient is feeling well. Blood pressure remains stable. No headache or dizziness. No chest pain, palpitation, shortness of breath. In November he had surgery for deviated nasal septum then subsequently had consultation with environmental management specialist. Recommended allergy shots but concerned about taking lisinopril. Patient is advised that we can change lisinopril to different blood pressure medication if environmental management specialist recommended it. ROS Review of Systems Constitutional: Negative. HENT: Negative. Eyes: Negative. Respiratory: Negative. Cardiovascular: Negative. Gastrointestinal: Negative. Endocrine: Negative. Genitourinary: Negative. Musculoskeletal: Negative. Skin: Negative. Allergic/Immunologic: Negative. Neurological: Negative. Hematological: Negative. Psychiatric/Behavioral: Negative. PHYSICAL EXAM Physical Exam Telephone visit Past medical, surgical, social and family history has been reviewed and updated as necessary. Medications and allergies has been reviewed and updated. No Known Allergies There are no active problems to display for this patient. Current Outpatient Medications: ??? amLODIPine (NORVASC) 5 MG Tablet ??? atorvastatin (LIPITOR) 20 MG Tablet ??? lisinopril (PRINIVIL, ZESTRIL) 20 MG Tablet Assessment ASSESSMENT & PLAN: No follow-ups on file. Diagnoses and all orders for this visit: Essential hypertension, benign Mixed hyperlipidemia Other orders - atorvastatin (LIPITOR) 20 MG Tablet; Take 1 Tab by mouth nightly. - amLODIPine (NORVASC) 5 MG Tablet; Take 1 Tab by mouth 2 times daily. - lisinopril (PRINIVIL, ZESTRIL) 20 MG Tablet; Take 1 Tab by mouth daily. Lab results from 11/21/2019 and 01/30/2020 reviewed and discussed with the patient. Patient is advised to start on cholesterol-lowering medication. Will start Lipitor. Advised to check lipid profile air TST in 4 weeks. Continue other medications as before. Prescription refilled. Follow-up in 3 months sooner if needed. Patient was assessed via telephone for a duration of 12 minutes. Patient verbally consented for this service to be performed and billed. I educated Chuck regarding diagnoses and plan of care. He verbalizes understanding and will call theoffice if situation changes. Voice recognition software was utilized in this dictation. Despite proof reading, typographical errors and/or content errors may have occurred. By: Charles Vogel MD 03/24/2020 2:20 PM ESOL TEACHER ASSISTANT TEACHER ASSISTANT documented in this encounter Plan of Treatment Not on file documented as of this encounter Visit Diagnoses Diagnosis Essential hypertension, benign- Primary Mixed hyperlipidemia documented in this encounter Care Teams Twisting Press Operator Relationship Specialty Start Date End Date Charles Vogel MD [address] [place] [address] PCP - General Internal Medicine 02/21/19 documented as of this encounter
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
--- OUTSIDE RECORDS SUMMARY | 2024-05-13 11:10 | XMS_ITS | Encounter Summary ---
Author Organization [facility] Address [address] [place] [address] Care Team Providers Care Branch Mechanic Name Role Phone Pankaj Rosenbegr MD Primary Care Provider [phone] Encounter Details Date Type Department Care Team (Latest Contact Info) Description 09/15/2021 3:12 PM CDT - 09/15/2021 11:59 PM CDT Hospital Encounter [facility] [id number] [place], [place] [id number] Discharge Disposition: Discharge to home or self care Social History Tobacco Use Types Packs/Day Years Used Date Smoking Tobacco: Never Smokeless Tobacco: Former Snuff Quit: 09/12/2020 Alcohol Use Standard Drinks/Week Comments Yes 0 (1 standard drink = 0.6 oz pur e alcohol) SOCIAL Sex and Gender Information Value Date Recorded Sex Assigned at Not on file 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 Gender Identity Not on file Sexual Orientation Not on file documented as of this encounter Medications at Time of Discharge amLODIPine (NORVASC) 10 mg tablet Take 10 mg by mouth daily 09/09/2021 atorvastatin (LIPITOR) 20 mg tablet Take by mouth nightly 05/19/2020 cetirizine (ZyrTEC) 5 mg chewable tablet Take 5 mg by mouth daily lisinopriL (PRINIVIL,ZESTRI L) 20 mg tablet Take 1 tablet (20 mg total) by mouth daily 30 tablet 11 09/15/2021 loratadine (CLARITIN) 10 mg tabletIndication s:liquid gel Take 1 tablet (10 mg total) by mouth daily as needed for allergies 09/14/2021 montelukast (SINGULAIR) 10 mg tablet Take 10 mg by mouth nightly omeprazole (PriLOSEC) 40 mg capsule Take 40 mg by mouth daily SITagliptin (JANUVIA) 25 mg tabletIndication s:type 2 diabetes mellitus Take 25 mg by mouth daily sodium chloride (OCEAN) 0.65 % nasal spray Administer 1 spray into each nostril as needed for congestion 15 mL 09/15/2021 3 documented as of this encounter Discharge Disposition Disposition Code Departure Means Destination Discharge to home or self care documented in this encounter Plan of Treatment Not on file documented as of this encounter Visit Diagnoses Not on filedocumented in this encounter Care Teams Branch Mechanic Relationship Specialty Start Date End Date Pankaj Rosenberg MD [address] [place] [address] PCP - General 09/11/21 documented as of this encounter
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
--- OUTSIDE RECORDS SUMMARY | 2024-05-13 11:11 | XMS_ITS | Encounter Summary ---
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 on Tue09/11/21 at 1749 1805 (New Bag - Prov ider: Lissa Monreal RN)2235 (Stopped - Provider: Thony Julien RN) PRN Medication Order 09/09/2021 09/10/2021 09/11/2021 HYDROmorphone (DILAUDID) injection 1 mg 1 mg, intravenous, Administer over 2 Minutes, Every 2 hours PRN, 1st line for pain, Starting on Tue09/11/21 at 1748, Indications: Pain 1829 (Given - Provid er: Christianne Richardson RN)2202 (Given - Provider: Natalie Gregory, BRYANT) ioversoL (OPTIRAY 350) injection 125 mL (COMPLETED) 125 mL, intravenous, Once in imaging, contrast, Starting on Tue09/11/21 at 1401, For 1 dose 1402 (Contrast Given - Provider: Rimma Weldon, RT - Comment: [id number]) documented in this encounter Care Teams Grounds Maintenance Manager Relationship Specialty Start Date End Date Pankaj Rosenberg MD [address] [place] [id number] PCP - General 09/11/21 documented as of this encounter
--- OUTSIDE RECORDS SUMMARY | 2024-05-13 11:11 | XMS_ITS | Encounter Summary ---
Author Organization [facility] Address [address] [place] [address] Care Team Providers Care Sanitary Inspector Name Role Phone Charles Vogel MD Primary Care Provider [phone]- [phone] Encounter Details Date Type Department Care Team (Late st Contact Info) Description 01/03/2020 Telephone [facility]ists - [facility] [address] [place] [address] Lacy Cordero MA Social History Tobacco Use Types Packs/Day Years Used Date Smoking Tobacco: Never Smokeless Tobacco: Current Snuff Alcohol Use Standard Drinks/Week Comments Yes 0 (1 standard drink = 0.6 oz pur e alcohol) Sex and Gender Information Value Date Recorded Sex Assigned at Not on file 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 * Telephone Encounter - Louann Zhu DO - 01/03/2020 5:56 PM CDT Pain is expected for the first few days, ice the cheeks and use the nasal saline every couple of hours * Telephone Encounter - Lacy Cordero MA - 01/03/2020 3:41 PM CDT Patient called and LVM asking if he could get stronger pain medication as the stuff he has now and is taking seems to not be enough/unable to get comfortable with. documented in this encounter Plan of Treatment Not on file documented as of this encounter Visit Diagnoses Not on filedocumented in this encounter Care Teams Sanitary Inspector Relationship Specialty Start Date End Date Charles Vogel MD [address] [place] [address] PCP - General 05/21/19 09/10/21 documented as of this encounter
--- OUTSIDE RECORDS SUMMARY | 2024-05-13 11:11 | XMS_ITS | Encounter Summary ---
Author Organization [facility] Healthcare Address [address] [place] [address] Care Team Providers Care Talent Buyer Name Role Phone Charles Vogel MD Primary Care Provider [phone] Encounter Details Date Type Department Care Team (Late st Contact Info) Description 01/02/2020 11:18 AM CDT - 01/02/2020 12:53 PM CDT Surgery [facility] Operating Room [address] [place] [address] Louann Zhu DO [address] [place] [address] DR GUTIERRES [address] [address] SEPTOPLASTY and Inferior Turbinate Submucosal Reduction bilaterally. Surgery Details Date/Time Status Location OR Service Patient Class Case Class Case Type Trauma Case? 01/02/2020 11:18 AM Posted [facility] OPERATING RO[facility] OR Otolaryngology Outpatient Elective Panel 1 Procedure LRB Anes Op Region Wound Class Comments SEPTOPLASTY and Inferior Turbinate Submucosal Reduction bilaterally. N/A General Nose Class II - Clean Contaminated Surgeon Surgeon Role Service Panel Louann Zhu DO Primary Otolaryngology 1 documented in this encounter Social History Tobacco Use Types Packs/Day Years Used Date Smoking Tobacco: Never Smokeless Tobacco: Current Snuff Alcohol Use Standard Drinks/Week Comments Yes 0 (1 standard drink = 0.6 oz pur e alcohol) Sex and Gender Information Value Date Recorded Sex Assigned at Not on file 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:34 PM RN ACUTE DIALYSIS Gender Identity Not on file Sexual Orientation Not on file documented as of this encounter Last Filed Vital Signs Vital Sign Reading Time Taken Comments Blood Pressure 121/64 01/02/2020 12:35 PM CDT Pulse 90 01/02/2020 12:35 PM CDT Temperature 36.8 ??C (98.3 ??F) 01/02/2020 1 2:35 PM CDT Respiratory Rate 18 01/02/2020 12:3 5 PM CDT Oxygen Saturation 92% 01/02/2020 12: 30 PM CDT Inhaled Oxygen Concentration - - Weight 114.6 kg (252 lb 10.4 oz) 01/02/2020 9:20 AM CDT Height 180.3 cm (5' 11 ) 01/02/2020 9:20 AM CDT Body Mass Index 35.24 01/02/2020 9:20 AM CDT documented in this encounter Discharge Instructions * Discharge Instructions* Louann Zhu, DO - 01/02/2020 11:59 AM CDT Septoplasty Post Operative Instructions What to Expect After Septoplasty Surgery: ?? Bleeding: It is normal to have some bloody discharge for the first 3-5 days after sinus surgery,especially after you use nasal saline. If steady bleeding occurs after surgery, You may dab your nose with tissue but avoid any nose blowing. If this does not stop the bleeding you may use Afrin spray. Several sprays will usually stop any bleeding. If Afrin fails to stop steady nasal bleeding then you should call our office or the assistant director of plant operations doctor (see contact below). ?? Pain: You should expect some nasal and sinus pressure and pain for the first several days after surgery. This may feel like a sinus infection or a dull ache in your sinuses. Extra-strength Tylenolis often all that is needed for mild post-operative discomfort. You should avoid aspirin and NSAIDssuch as Motrin, Advil, and Aleve (see below). If Tylenol is not sufficient to control the pain, youshould use the post-operative pain medication prescribed by your doctor. ?? Fatigue: You can expect to feel very tired for the first week after surgery. This is normal and most patients plan on taking at least 2 weeks off of work to recover Every patient is different and some return to work sooner. ?? Nasal Congestion and Discharge: You will have nasal congestion and discharge for the first few weeks after surgery. Your nasal passage and breathing should return to normal 2-3 weeks after surgery. ?? Postoperative Visits:You will have a certain number of postoperative visits depending on what surgery you have. There is some discomfort involved with the cleaning so it is best to take a pain medication (described above) 45 minutes before your visit. What to Avoid After Septoplasty Surgery: ?? Nose Blowing and Straining: You should avoid straining, heavy lifting (>20 lbs) and nose blowing for at least 10 days after surgery. Straining or nose blowing soon after surgery may cause bleeding. You can resume 50% of your regular exercise regimen at 2 weeks after surgery and your normal routine 2 weeks after surgery. ?? Aspirin or Non-Steroidal Anti-inflammatory (NSAIDs) medications: Aspirin and NSAIDs such as Motrin, Advil, and Aleve should be stopped 2 weeks prior to surgery. Aspirin and NSAIDs may cause bleeding and should be avoided for 2 weeks after surgery. ?? Steroid Nasal Sprays: If you were taking nasal steroid sprays prior to surgery you should avoid using these for at least 2 weeks after septoplasty surgery to allow the lining for the nose and sinuses to heal. Your doctor will tell you when it is safe to restart this medicine. Postoperative Care Instructions: ?? Nasal Saline spray: Nasal saline mist spray can be used every 2-3 hours after surgery and can make your nose more comfortable after surgery. These sprays ([place], Nome, Simple Saline) are hehe-tvf-bzwurla medications and can be purchased in any pharmacy. ?? Antibiotics: Take antibiotics as prescribed to prevent a sinus infection When to Call After Surgery: ?? Fever after the day of surgery higher than 101 F. ?? Constant clear watery discharge after the first week of surgery ?? Sudden visual changes or eye swelling ?? Severe headache or neck stiffness ?? Severe diarrhea ?? Steady, brisk nose bleeding that doesn't get better after using Afrin Who to Call After Surgery: [facility] [place] [facility]: Dr. Louann Zhu DO [address], [address] [place] [address] P: Exchange: [phone] * Attachments The following attachments cannot be sent through Care Everywhere. * General Anesthesia (Discharge Care) (Sol[place] Islander) * Hydrocodone/Acetaminophen (By mouth) ([place] Island[place]) * Amoxicillin/Clavulanate Potassium (By mouth) ([place] Islander) documented in this encounter Medications at Time of Discharge amoxicillin-clavu lanate (AUGMENTIN) 875-125 mg per tablet Take 1 tablet by mouth 2 (two) times a day for 14 days 28 tablet 01/02/2020 01/16/2020 amLODIPine (NORVASC) 5 mg tablet Take 5 mg by mouth 2 (two) times a day 10/14/2019 09/12/2021 HYDROcodone-aceta minophen (NORCO) 5-325 mg per tabletIndications :Pain Take 1 tablet by mouth every 6 (six) hours as needed for pain for up to 15 doses 15 tablet 01/02/2020 06/11/2020 lisinopriL (PRINIVIL,ZESTRIL ) 10 mg tablet Take 20 mg by mouth daily 10/15/2019 06/11/2020 loratadine (CLARITIN) 10 mg tabletIndications :liquid gel Take 10 mg by mouth daily 09/12/2021 documented as of this encounter Ordered Prescriptions Prescription Sig Dispense Quantity Refills Last Filled Start Date End Date HYDROcodone-acetam inophen (NORCO) 5-325 mg per tabletIndications: Pain Take 1 tablet by mouth every 6 (six) hours as needed for pain for up to 15 doses 15 tablet 01/02/2020 06/11/2020 amoxicillin-clavul anate (AUGMENTIN) 875-125 mg per tablet Take 1 tablet by mouth 2 (two) times a day for 14 days 28 tablet 01/02/2020 01/16/2020 HYDROcodone-acetam inophen (NORCO) 5-325 mg per tabletIndications: Pain Take 1 tablet by mouth every 6 (six) hours as needed for pain for up to 15 doses 15 tablet 01/02/2020 01/02/2020 documented in this encounter Discharge Disposition Disposition Code Departure Means Destination Discharge to home or self care documented in this encounter H&P Notes * Louann Zhu DO - 01/02/2020 10:19 AM CDT I have reviewed the H&P, examined the patient, and endorse the findings as written. Plan of Care : Based on the above findings, I consider Sheri Barlow to be an acceptable risk for : Procedure(s): SEPTOPLASTY and inferior turbinate submucosal reduction bilaterally. Source Note - Louann Zhu DO - 12/13/2019 1:00 PM CDT Images from the original note were not included. ENT Progress Note Reason for Follow up: nasal congestion Requesting Provider: No att. providers found SUBJECTIVE: Patient was following up for nasal congestion. HPI: Sheri reported complaint being Sinus infection for three weeks, received Augmentin with some improvement, finished this two weeks ago. Nasal congestion worse this week. Alelrgy blood testing: Grass, Tatum and Pecan Last seen: 10/22/2019 Allergic rhinitis, unspecified seasonality, unspecified trigger (Primary) Assessment & Plan: Nasal saline spray (Simply saline, Little Remedies, Nome, [place]) 2 second sprays or 2 squeezes into [...] results CT Sinus - call with results ?? Orders: - Expanded respiratory allergy profile; Future - CT Sinus Stealth WO Contrast; Future ??10/31/2019: The frontal, ethmoid, sphenoid and maxillary sinuses are well aerated. The nasal septum is deviated to the left. The ostiomeatal units are patent. There are no erosions. Medial bilateral maxillary wall defects are noted. The orbits are normal. The mastoids are well aerated. There are no fractures. Limited evaluation of the skull base appears normal. The ventricles appear normal in caliber IMPRESSION: 1. No CT evidence of acute sinusitis. Current Outpatient Medications on File Prior to Visit Medication Sig Dispense Refill ??? amLODIPine (NORVASC) 5 mg tablet Take 5 mg by mouth 2 (two) times a day ??? lisinopriL (PRINIVIL,ZESTRIL) 10 mg tablet Take 20 mg by mouth daily ??? loratadine (CLARITIN) 10 mg tablet Take 10 mg by mouth daily ??? amoxicillin (AMOXIL) 875 mg tablet ??? labetalol (NORMODYNE,TRANDATE) 100 mg tablet No current facility-administered medications on file prior to visit. No Known Allergies OBJECTIVE: Vitals BP 142/95 (BP Location: Left arm, Patient Position: Sitting) Pulse 109 Temp 36.5 ??C (97.7 ??F) (Temporal) Ht 180.3 cm (5' 11 ) Wt 114.5 kg (252 lb 6.4 oz) BMI 35.20 kg/m?? Review of Systems HENT: Positive for congestion, nosebleeds, postnasal drip, rhinorrhea, sinus pressure and sinus pain. Physical Exam HENT: Head: Normocephalic and atraumatic. Nose: Mucosal edema present. Mouth/Throat: Mucous membranes are moist. Posterior oropharyngeal erythema present. Eyes: Pupils are equal, round, and reactive to light. Abdominal: Normal appearance. Neurological: He is alert. Vitals reviewed. Nasal Endoscopy Procedure: Patient was seen and examined, verbal consent was obtained. Afrin was applied into each nasal cavity and after allowing time for local the congestion, flexible fiberoptic scope was introduced into each nasal cavity noting nasal vestibule nasal septum inferior, middle, and superior turbinates. The lateral nasal wall, posterior nasal septum nasopharynx including torus tubarius, fossa of Rosenmuller, posterior nasopharynx and eustachian tube orifice were examined today. Findings: no masses, polypsor purulence, inferior turbinate hypertrophy bilaterally, left sided nasal septal deviation with >95% obstruction at mid nasal septum. Assessment & Plan: Diagnoses and all orders for this visit: Allergic rhinitis, unspecified seasonality, unspecified trigger (Primary) Assessment & Plan: Referral to Oxyacetylene Welder - Dr. Fuchs Orders: - Ambulatory referral to Allergy; Future Deviated nasal septum Assessment & Plan: Septoplasty and Inferior turbinate submucosal reduction bilaterally Risks and complications include anesthesia, bleeding, infection, injury to surrounding structures including brain with csf leak, eyes with vision changes, nasal mucosa, atrophic rhinitis, septal perforation, no guarantee that sense of smell will return, need for further surgery. Hypertrophy of both inferior nasal turbinates Assessment & Plan: Septoplasty and Inferior turbinate submucosal reduction bilaterally Risks and complications include anesthesia, bleeding, infection, injury to surrounding structures including brain with csf leak, eyes with vision changes, nasal mucosa, atrophic rhinitis, septal perforation, no guarantee that sense of smell will return, need for further surgery. Louann Zhu DO documented in this encounter Miscellaneous Notes * Perioperative Nursing Note - Clari Velarde RN - 01/02/2020 2:22 PM CDT Nasal dressing changed x2. Oozing from left nare. Dr. Zhu here and pt seen * Op Note - Louann Zhu DO - 01/02/2020 10:58 AM CDT Operative Report DATE OF SURGERY: 01/02/2020 PREOPERATIVE DIAGNOSIS: Deviated Nasal Septum, Inferior Turbinate Hypertrophy bilaterally POSTOPERATIVE DIAGNOSIS: same PROCEDURE PERFORMED: Septoplasty Submucosal Reduction of Inferior Turbinates bilaterally ATTENDING SURGEON: Louann Zhu DO ANESTHESIA: General Endotracheal Anesthesia EBL: 50 mL FLUIDS: 1400 mL COMPLICATIONS: none SPECIMEN: Nasal septum FINDINGS: Deviated nasal septum to the left, inferior turbinate hypertrophy INDICATIONS/SIGNIFICANT HISTORY: This is a 24 y.o. male who has Nasal obstruction and deviated nasal septum, inferior turbinate hypertrophy. Risks benefits and alternatives were discussed with Sheri. Risks and complications include anesthesia, bleeding, infection, injury to surrounding structures including injury to nasal mucosa, atrophic rhinitis, septal perforation, no guarantee that sense of smell will return, need for furthersurgery. DESCRIPTION OF OPERATIVE PROCEDURE/FINDINGS: Patient was taken in the operating room, identified by armband and placed in supine position. The patient underwent general endotracheal anesthesia. The patient was prepped and draped in the usual fashion and time out performed. Local anesthesia was injected into the right and left nasal septum, inferior and middle turbinates. Afrin soaked pledgets were placed. After allowing enough time for local anesthesia and decongestant, #15 blade was used to make a Mehul incision on the left anterior nasal septum. The mucoperichondrial flap was raised and anterior septum was noted to be significantly deviated to the left mid nasal septum. Incision was made on the septum posterior to previous incision and mucoperichondrial flap was raised on the right nasal septum. D-knife was used to excise small inferior aspect of anterior nasal septum. Septal cartilage was realigned on the maxillary crest. Septal spuring and deviated bony septum was removed with Jantzen Prakash forceps, D-knife and V-chisel. Septum was approximated back on to the maxillary crest. #15 blade was use to create anterior incision on left inferior turbinate, flap was raised with a freer and turboplasty blade was introduced and submocusal resection was performed. This was repeated with similar results of reduction of inferior nasal turbinate on the right. The mucoperichondrial flaps were approximated with 5.0 fast absorbing plain gut. Aquaphor was applied to Obrien Splints and these were placed in the nasal cavity bilaterally. The splints were sutured into position with 2.0 silk suture. The patient tolerated the procedure well and was awoken, extubated and transferred to the recovery in stable condition. At the end of the case, all counts were correct. Louann Zhu DO * Perioperative Nursing Note - Adelita White RN - 12/28/2019 9:52 AM CDT covid screening 12/31/2019 * Pre-Procedure Instructions - Adelita White RN - 12/28/2019 9:52 AM CDT We are pleased that you and your doctor have chosen [facility] for your surgery. We hope that the following information will help make your visit a pleasant one. Surgery Date: 01/02/2020 Before your surgery: ?? Notify your doctor of ANY change in your health such as a cold, sore throat, fever, any infection or a change in the problem for which you are having your surgery. ?? Follow any instructions given to you by your doctor or surgeon. Check with your doctor if you need to STOP taking: ?? Aspirin (ordered by your doctor) ?? Plavix ?? Coumadin One week before surgery STOP taking: ?? All herbal supplements ?? Aspirin (not ordered by your doctor) ?? Aleve, Advil, Motrin, Ibuprofen, or other similar medications (Tylenol is okay). 24 hours before your surgery: ?? No smoking or alcoholic drinks. ?? Stop taking your: Metformin/Glucophage. Night before your surgery: ?? Do not eat or drink anything after midnight. ?? Take only half of your normal PM Insulin dose. ?? Follow surgeon's instructions for anti-bacterial shower night before and morning of surgery. Day of surgery: ?? Do not swallow any water when you brush your teeth. ?? Do not take your AM insulin dose or any diabetic medicines ?? ONLY take these pills with a tiny sip of water. Pre-Surgery Instructions: Medication Instructions ??? amLODIPine (NORVASC) 5 mg tablet ??? lisinopriL (PRINIVIL,ZESTRIL) 10 mg tablet ?? Use no make-up, nail chilean, lotions, oils or powders on your skin. ?? Wear comfortable clothes that will not be tight in the area of your surgery. ?? Leave all valuables and jewelry (including all body piercing jewelry) at home. ?? If you use a CPAP machine, please bring it with you to wear after your surgery. ?? Please bring your a photo ID and insurance cards with you. ?? Check in at the Registration Desk. ?? If you are 17 years old or younger, a parent or guardian must come with you. After your Outpatient Surgery: ?? You must have a responsible adult to drive you home, you will not be allowed to drive or take a cab home. ?? We recommend you have someone stay with you for 24 hours after your surgery. What to bring if you are spending the night with us: ?? Bring toiletry items such as: robe, slippers, toothbrush, toothpaste, brush or comb. ?? Bring contact lens, hearing aids, glass cases and denture container if you use any of these items. ?? The hospital will provide you with a gown. Questions or concerns: ?? If you have any questions or concerns regarding your procedure, contact your surgeon as soon as possible. ?? If you have questions regarding your Pre-Admission Testing, please call us. We can be reached atthe number posted at the top of the page. documented in this encounter Plan of Treatment Not on file documented as of this encounter Procedures Procedure Name Priority Date/Time Associated Diagnosis Comments SURGICAL PATHOLOGY Routine 01/02/2020 1: 25 PM CDT Deviated nasal septum Hypertrophy of inferior nasal turbinate SEPTOPLASTY 01/02/2020 10:24 AM CDT Deviated nasal septum Hypertrophy of inferior nasal turbinate documented in this encounter Results * Surgical pathology (01/02/2020 1:25 PM CDT) Tissue (Sinus contents) 01/02/2020 11:38 AM CDT Narrative PATHOLOGY [facility] ([place]) - 01/07/2020 12:33 PM CDT EPIC results best viewed via link to PDF [facility] Department of Pathology [address] [place] [address] Final Report Patient Name: ??SHERI BARLOWKelly Address: ??[address] [place] [address], ??[place], [place] [address] Gender: ??M : ??1995 (Age: 24) Service: ??Surgery Location: ??[facility] Hospital #: ??[id number] Patient Type: ??[facility] Accession # ?[id number] Taken: ??01/02/2020 Received: ??01/02/2020 Accessioned: ??01/02/2020 Reported: ??01/07/2020 Physician(s):LOUANN ZHU D.O. Diagnosis: Nasal septum, deviated septum repair: ? - No pathologic diagnosis (gross examination only) Nicole Parrish M.D. Report Electronically Reviewed and Signed Out By ??Nicole Parrish M.D. ??01/07/2020 12:33:09 Specimen(s) Received: A: Nasal septum Microscopic Description: None. Clinical History: Deviated nasal septum. ??Hypertrophy of inferior nasal turbinate. ??Septoplasty and inferior turbinate submucosal reduction bilaterally. Gross Description: The specimen is submitted in a single container labeled Sheri Barlow and Nasal septum . ??It is an approximate 1 cc aggregate of grossly unremarkable sutherland cartilage and bone. ??It is submitted for gross examination only unless otherwise requested. ??Lizeth Gray M.D./Zoraida Sagastume REPORT IMAGES AND SCANNED DOCUMENTS, IF INCLUDED, ONLY VIEWABLE IN PDF VERSION OF REPORT The performance characteristics of some immunohistochemical stains, fluorescence in-situ hybridization tests and immunophenotyping by flow cytometry cited in this report (if any) were determined by the Surgical Pathology Department at [facility] as part of an ongoing research associate quality control qc program and in compliance with federally mandated regulations drawn from the Clinical Laboratory Improvement Act of 1988 (CLIA '88). ??Some of these tests rely on the use of analyte specific reagents and are subject to specific labeling requirements by the US Food and Drug Administration. ??Such diagnostic tests may only be performed in a facility that is certified by the Department of Health and Human Services as a high complexity laboratory under CLIA '88. The FDA has determined that such clearance or approval is not necessary. ??This test is used for clinical purposes. ??It should not be regarded as investigational or for research. ??Nevertheless, federal rules concerning the medical use of analyte specific reagents require that the following disclaimer be attached to the report: This test was developed and its performance characteristics determined by the Surgical Pathology Department [facility]. ??It has not been cleared or approved by the U. S. Food and Drug Administration. Louann Zhu DO LAB PATHOLOGY ORDERABLES Fin al Result PATHOLOGY [facility] ([place]) [address] [place], [place] [id number] * COVID-19 Coronavirus RNA Nasopharyngeal (12/31/2019 10:18 AM CDT) COVID-19 RNA Not Detected [facility] ([place]) Comment: Interpretive Data Testing performed at [facility] Molecular Infectious Disease Laboratory. The 2019Novel Coronavirus Assay (COVID-19) Real Time RT-PCR assay is for in vitro diagnostic use under FDA emergency use authorization only. A negative RT-PCR result does not preclude infection with COVID-19 and should not be used as the sole basis for treatment or other patient management decisions. Additional sample types have been validated according to CLIA regulations. ?? Current Interpretive Data was last revised on 2019. Testing performed by: [facility], [address] [facility], [place]., [address] Nasopharyngeal 12/31/2019 10 :18 AM CDT 12/31/2019 12:52 PM CDT Narrative [facility] ([place]) - 12/31/2019 8:49 PM CDT Is the patient experiencing any symptoms consistent with COVID (eg. Fever, cough, shortness of breath)?->No What is the reason for testing?->Screening prior to scheduled (>12 hr) surgery or procedure us Louann Zhu DO LAB MICROBIOLOGY - GENERAL O RDERABLES Final Result [facility] ([place]) [address] [facility] Department [place] [address] documented in this encounter Visit Diagnoses Diagnosis Preoperative clearance- Primary Unspecified pre-operative examination Deviated nasal septum Hypertrophy of inferior nasal turbinate Preoperative clearance Unspecified pre-operative examination Deviated nasal septum Hypertrophy of inferior nasal turbinate documented in this encounter Admitting Diagnoses Diagnosis Deviated nasal septum Hypertrophy of inferior nasal turbinate documented in this encounter Administered Medications Inactive Administered Medications - up to 3 most recent administrations Medication Order MAR Action Action Date Dose Rate Site acetaminophen (TYLENOL) tablet 1,000 mg 1,000 mg, oral, Once, On Tue01/02/20 at 1015, For 1 dose, Pre-Op, Indications: Pre-Emptive AnalgesiaIndications:Pre-Em ptive Analgesia Given 01/02/2020 9:41 AM CDT 1,000 mg celecoxib (CeleBREX) capsule 200 mg 200 mg, oral, Once, On Tue01/02/20 at 1015, For 1 dose, Pre-Op, Indications: Pre-Emptive AnalgesiaIndications:Pre-Em ptive Analgesia Given 01/02/2020 9:42 AM CDT 200 mg HYDROcodone-acetaminophen (NORCO) 5-325 mg per tablet 1 tablet 1 tablet, oral, Once, On Tue01/02/20 at 1315, For 1 dose, Phase I, Indications: PainIndications:Pain Given 01/02/2020 12:50 PM CDT 1 tablet Lactated Ringer's (LR) infusion 30 mL/hr, intravenous, Continuous, Starting on Tue01/02/20 at 1015, Pre-Op New Bag 01/02/2020 11:25 AM CDT 100 mL /hr Rate/Dose Verify 01/02/2020 10:41 AM CDT 100 mL /hr lidocaine-EPINEPHrine (XYLOCAINE with EPI) 1 %-1:200,000 preservative free injection As needed, Starting on Tue01/02/20 at 1056, Intra-Op, Indications: Administration of Local AnesthesiaIndications:Administration of Local Anesthesia Given 01/02/2020 11:39 AM CDT 10 mL Intranasal Given 01/02/2020 10:56 AM CDT 10 mL I ntranasal oxymetazoline (AFRIN) 0.05 % nasal spray 2 spray 2 spray, each nostril, Every 10 min, First dose on Tue01/02/20 at 1015, For 10 doses, Pre-Op, 2 sprays into each nostril starting at least 30 minutes prior to OR scheduled time every 10 minutes for a total of 10 doses, Indications: in pre-op areaIndications:in pre-op area Given 01/02/2020 10:32 AM CDT 2 sprays Given 01/02/2020 10:22 AM CDT 2 sprays Given 01/02/2020 10:12 AM CDT 2 sprays oxymetazoline (AFRIN) 0.05 % nasal spray As needed, Starting on Tue01/02/20 at 1058, Intra-Op Given 01/02/2020 10:58 AM CDT 5 mL In tranasal documented in this encounter Discontinued Medications Medication Sig Discontinue Reason Start Date End Da te labetalol (NORMODYNE,TRANDATE) 100 mg tablet 05/31/2019 12/28/2019 amoxicillin (AMOXIL) 875 mg tablet 05/31/2019 12/28/2019 HYDROcodone-acetaminophe n (NORCO) 5-325 mg per tabletIndications:Pain Take 1 tablet by mouth every 6 (six) hours as needed for pain for up to 15 doses Reorder 01/02/2020 01/02/2020 documented as of this encounter Active and Recently Administered Medications Times are shown in CDT. Scheduled Medication Order 12/31/2019 01/01/2020 01/02/2020 acetaminophen (TYLENOL) tablet 1,000 mg (COMPLETED) 1,000 mg, oral, Once, On Tue01/02/20 at 1015, For 1 dose, Pre-Op, Indications: Pre-Emptive Analgesia 0941 (Given - Provid er: Clari Velarde RN) celecoxib (CeleBREX) capsule 200 mg (COMPLETED) 200 mg, oral, Once, On Tue01/02/20 at 1015, For 1 dose, Pre-Op, Indications: Pre-Emptive Analgesia 0942 (Given - Provid er: Clari Velarde RN) HYDROcodone-acetaminophen (NORCO) 5-325 mg per tablet 1 tablet (COMPLETED) 1 tablet, oral, Once, On Tue01/02/20 at 1315, For 1 dose, Phase I, Indications: Pain 1250 (Given - Provid er: Clari Velarde RN) oxymetazoline (AFRIN) 0.05 % nasal spray 2 spray 2 spray, each nostril, Every 10 min, First dose on Tue01/02/20 at 1015, For 10 doses, Pre-Op, 2 sprays into each nostril starting at least 30 minutes prior to OR scheduled time every 10 minutes for a total of 10 doses, Indications: in pre-op area 0942 (Given - Provid er: Clari Velarde RN)0952 (Given - Provider: Clari Velarde RN)1002 (Given - Provider: Clari Velarde RN)1012 (Given - Provider: Clari Velarde RN)1022 (Given - Provider: Clari Velarde RN)1032 (Given - Provider: Clari Velarde RN)1115 (Due)1125 (Due)1135 (Due)1145 (Due) Continuous Medication Order 12/31/2019 01/01/2020 01/02/2020 Lactated Ringer's (LR) infusion 30 mL/hr, intravenous, Continuous, Starting on Tue01/02/20 at 1015, Pre-Op 1041 (Rate/Dose Veri fy - Provider: Helen Altman CRNA)1125 (New Bag - Provider: Helen Altman CRNA)1203 (Anesthesia Volume Adjustment - Provider: Helen Altman CRNA) PRN Medication Order 12/31/2019 01/01/2020 01/02/2020 lidocaine-EPINEPHrine (XYLOCAINE with EPI) 1 %-1:200,000 preservative free injection (CANCELED) As needed, Starting on Tue01/02/20 at 1056, Intra-Op, Indications: Administration of Local Anesthesia 1056 (Given - Provid er: Louann Zhu DO)1139 (Given - Provider: Louann Zhu DO) oxymetazoline (AFRIN) 0.05 % nasal spray (CANCELED) As needed, Starting on Tue01/02/20 at 1058, Intra-Op 1058 (Given - Provid er: Louann Zhu DO - Comment: Same bottle from pre-op) documented in this encounter Orders Medications Ordered That Romel ht Not Have Been Administered Count Last Ordered Date First Ordered Date diphenhydrAMINE (BENADRYL) i njection 12.5 mg 1 01/02/2020 fentaNYL (SUBLIMAZE) 50 mcg/ mL preservative free injection - ADS Override Pull 1 01/02/2020 fentaNYL (SUBLIMAZE) preserv ative free injection 25 mcg 1 01/02/2020 fentaNYL (SUBLIMAZE) preserv ative free injection 50 mcg 1 01/02/2020 Lactated Ringer's (LR) infusion 1 0 meperidine (DEMEROL) preserv ative free injection 12.5 mg 1 01/02/2020 midazolam (VERSED) 1 mg/mL p reservative free injection - ADS Override Pull 1 01/02/2020 naloxone (NARCAN) 0.4 mg/mL injection 0.04-0.4 mg 1 01/02/2020 ondansetron (ZOFRAN) injection 4 mg 1 01/01 sodium chloride 0.9% flush 0.5-20 mL 2 12/14 Diet Count Last Ordered Date First Orde red Date ADULT DISCHARGE DIET 1 01/02/2020 Nursing Count Last Ordered Date First Orde red Date DISCHARGE CALL PROVIDER 5 01/02/2020 DISCHARGE DRESSING 1 01/02/2020 WEIGHT RESTRICTIONS 1 01/02/2020 documented in this encounter Care Teams Talent Buyer Relationship Specialty Start Date End Date Charles Vogel MD [address] [place] [address] PCP - General 05/21/19 09/10/21 documented as of this encounter
--- OUTSIDE RECORDS SUMMARY | 2024-05-13 11:11 | XMS_ITS | Encounter Summary ---
Author Organization [facility] Address [address] [place] [address] Care Team Providers Care Truck Repair Supervisor Name Role Phone Charles Vogel MD Primary Care Provider [phone]- [phone] Reason for Visit * Reason Comments Follow-up had a sinus infectio n--antibiotic. Encounter Details Date Type Department Care Team (Late st Contact Info) Description 12/13/2019 1:00 PM CDT Office Visit [facility] E[facility] Specialists - [facility] [address] [place] [address] Louann Zhu, [address] [place] [address] Allergic rhinitis, unspecified seasonality, unspecified trigger (Primary Dx); Deviated nasal septum; Hypertrophy of both inferior nasal turbinates Social History Tobacco Use Types Packs/Day Years Used Date Smoking Tobacco: Never Smokeless Tobacco: Current Alcohol Use Standard Drinks/Week Comments Yes 0 (1 standard drink = 0.6 oz pur e alcohol) Sex and Gender Information Value Date Recorded Sex Assigned at Not on file 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 Gender Identity Not on file Sexual Orientation Not on file documented as of this encounter Last Filed Vital Signs Vital Sign Reading Time Taken Comments Blood Pressure 142/95 12/13/2019 1:08 PM CDT Pulse 109 12/13/2019 1:08 PM CDT Temperature 36.5 ??C (97.7 ??F) 12/13/2019 1:08 PM CD T Respiratory Rate - - Oxygen Saturation - - Inhaled Oxygen Concentration - - Weight 114.5 kg (252 lb 6.4 oz) 12/13/2019 1:08 PM CDT Height 180.3 cm (5' 11 ) 12/13/2019 1:08 PM CDT Body Mass Index 35.2 12/13/2019 1:08 PM CDT documented in this encounter Patient Instructions * Patient Instructions* Louann Zhu DO - 12/13/2019 1:00 PM CDT Septoplasty and Inferior turbinate submucosal reduction bilaterally Risks and complications include anesthesia, bleeding, infection, injury to surrounding structures including brain with csf leak, eyes with vision changes, nasal mucosa, atrophic rhinitis, septal perforation, no guarantee that sense of smell will return, need for further surgery. Referral to Landscape Designer - Dr. Fuchs documented in this encounter Progress Notes * Louann Zhu DO - 12/13/2019 1:00 PM CDT Images from the original note were not included. ENT Progress Note Reason for Follow up: nasal congestion Requesting Provider: No att. providers found SUBJECTIVE: Patient was following up for nasal congestion. HPI: Chuck reported complaint being Sinus infection for three weeks, received Augmentin with some improvement, finished this two weeks ago. Nasal congestion worse this week. Alelrgy blood testing: [place], [place] and Pecan Last seen: 10/22/2019 Allergic rhinitis, unspecified seasonality, unspecified trigger (Primary) Assessment & Plan: Nasal saline spray (Simply saline, Little Remedies, [place], [place]) 2 second sprays or 2 squeezes into [...] trigger (Primary) Assessment & Plan: Referral to Landscape Designer - Dr. Fuchs Orders: - Ambulatory referral [...] documented in this encounter Miscellaneous Notes * Assessment & Plan Note - Louann Zhu DO - 12/13/2019 10:05 PM CDT Associated Problem(s): Allergic rhinitis Referral to Landscape Designer - Dr. Fuchs * Assessment & Plan Note - Louann Zhu DO - 12/13/2019 10:05 PM CDT Associated Problem(s): Deviated nasal septum Septoplasty and Inferior turbinate submucosal reduction bilaterally Risks and complications include anesthesia, bleeding, infection, injury to surrounding structures including brain with csf leak, eyes with vision changes, nasal mucosa, atrophic rhinitis, septal perforation, no guarantee that sense of smell will return, need for further surgery. * Assessment & Plan Note - Louann Zhu DO - 12/13/2019 10:04 PM CDT Associated Problem(s): Hypertrophy of both inferior nasal turbinates Septoplasty and Inferior turbinate submucosal reduction bilaterally Risks and complications include anesthesia, bleeding, infection, injury to surrounding structures including brain with csf leak, eyes with vision changes, nasal mucosa, atrophic rhinitis, septal perforation, no guarantee that sense of smell will return, need for further surgery. documented in this encounter Plan of Treatment Not on file documented as of this encounter Visit Diagnoses Diagnosis Allergic rhinitis, unspecified seasonality, unspecified trigger- Primary Deviated nasal septum Hypertrophy of both inferior nasal turbinates documented in this encounter Care Teams Truck Repair Supervisor Relationship Specialty Start Date End Date Charles Vogel MD [address] [place] [address] PCP - General 05/21/19 09/10/21 documented as of this encounter
--- OUTSIDE RECORDS SUMMARY | 2024-05-13 11:11 | XMS_ITS | Encounter Summary ---
Author Organization [facility] Address [address] [place] [address] Care Team Providers Care Stitcher Operator Name Role Phone Charles Vogel MD Primary Care Provider [phone]- [phone] Encounter Details Date Type Department Care Team (Late st Contact Info) Description 10/22/2019 12:00 PM CDT Lab [address] Louann Zhu, [address] [address] Allergic rhinitis, unspecified seasonality, unspecified trigger Discharge Disposition: Discharge to home or self care Social History Tobacco Use Types Packs/Day Years Used Date Smoking Tobacco: Never Smokeless Tobacco: Current Alcohol Use Standard Drinks/Week Comments Yes 0 (1 standard drink = 0.6 oz pur e alcohol) Sex and Gender Information Value Date Recorded Sex Assigned at Not on file 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:34 PM CIVIL 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 COORDINATOR Gender Identity Not on file Sexual Orientation Not on file documented as of this encounter Discharge Disposition Disposition Code Departure Means Destination Discharge to home or self care documented in this encounter Plan of Treatment Not on file documented as of this encounter Procedures Procedure Name Priority Date/Time Associated Diagnosis Comments REFLEX ALLERGEN EVALUATION Routine 10/22/2019 12:05 PM CDT Allergic rhinitis, unspecified seasonality, unspecified trigger ALLERGEN EXPANDED RESPIRATORY ALLERGY PROFILE Routine 10/22/2019 12:05 PM CDT Allergic rhinitis, unspecified seasonality, unspecified trigger documented in this encounter Results * Allergen evaluation (10/22/2019 12:05 PM CDT) RAST, allergen name See Interpretive data. SENAIT SALCEDO (TASHI) Comment: Interpretive data Rast Class ?Result range (KUnits/L) ?1+ ?0.35 ?- ?? 0.69 ?2+ ?0.70 ?- ?? 3.49 ?3+ ?3.50 ?- ??17.49 ?4+ ? 17.50 ?- ??49.99 ?5+ ? 50.00 ?- 100.00 ?6+ ? >100.00 Current interpretive data was last revised on 09. Testing performed by: [place]., [address] Blood specimen (specimen) 10/22/2019 12:05 PM CDT 10/22/2019 5:01 PM CDT Louann Zhu DO LAB BLOOD ORDERABLES Final R esult SENAIT SALCEDO (TASHI) 1 [facility] [place] [address] * (ABNORMAL) Expanded respiratory allergy profile (10/22/2019 12:05 PM CDT) Alternaria tenius IgE <0.10 0.00 - 0.34 kUnits/L SENAIT SALCEDO (TASHI) Comment:Testing performed by : [place]., [address] Julian white IgE <0.10 0.00 - 0.34 kUnits/L [facility] (TASHI) Comment:Testing performed by : [facility], [place]., [address] Aspergillus fumigatus IgE <0.10 0.00 - 0.34 kUnits/L [facility] (TASHI) Comment:Testing performed by : [facility], [place]., [address] Berm[place] grass IgE 1.13(H) 0.00 - 0.34 kUnits/L [facility] (TASHI) Comment:Testing performed by : [facility], [place]., [address] Cat dander IgE <0.10 0.00 - 0.34 kUnits/L [facility] (TASHI) Comment:Testing performed by : [facility], [place]., [address] Cladosporium herbarum IgE <0.10 0.00 - 0.34 kUnits/L [facility] (TASHI) Comment:Testing performed by : [facility], [place]., [address] Cockroach IgE <0.10 0.00 - 0.34 kUnits/L [facility] (TASHI) Comment:Testing performed by : [facility], [place]., [address] Morrow IgE <0.10 0.00 - 0.34 kUnits/L [facility] (TASHI) Comment:Testing performed by : [facility], [place]., [address] Dermatophyton farinae IgE <0.10 0.00 - 0.34 kUnits/L [facility] (TASHI) Comment:Testing performed by : [place]., [address] Dermatophyton pteronyssinus IgE <0.10 0.00 - 0.34 kUnits/L [facility] (TASHI) Comment:Testing performed by : [facility], [place]., [address] Dog dander IgE <0.10 0.00 - 0.34 kUnits/L [facility] (TASHI) Comment:Testing performed by : [facility], [place]., [address] Elm IgE <0.10 0.00 - 0.34 kUnits/L [facility] (TASHI) Comment:Testing performed by : [facility], [place]., [address] Maple/box elder IgE <0.10 0.00 - 0.34 kUnits/L [facility] (TASHI) Comment:Testing performed by : [facility], [place]., [address] Mountain juniper IgE 0.12 0.00 - 0.34 kUnits/L [facility] (TASHI) Comment:Testing performed by : [facility], [place]., [address] [place] IgE <0.10 0.00 - 0.34 kUnits/L [facility] (TASHI) Comment:Testing performed by : [facility], [place]., [address] [place] IgE 22.10(H) 0.00 - 0.34 kUnits/L [facility] (TASHI) Comment:Testing performed by : [facility], [place]., [address] Pecan (tree) IgE 0.37(H) 0.00 - 0.34 kUnits/L [facility] (TASHI) Comment:Testing performed by : [facility], [place]., [address] Penicillium chrysogenum IgE <0.10 0.00 - 0.34 kUnits/L [facility] (TASHI) Comment:Testing performed by : [facility], [place]., [address] Ragweed common IgE <0.10 0.00 - 0.34 kUnits/L [facility] (TASHI) Comment:Testing performed by : [facility], [place]., [address] [place]er rough IgE <0.10 0.00 - 0.34 kUnits/L [facility] (TASHI) Comment:Testing performed by : [facility], [place]., [address] Pigweed rough IgE <0.10 0.00 - 0.34 kUnits/L [facility] (TASHI) Comment:Testing performed by : [facility], [place]., [address] Thistle new zealander IgE 0.10 0.00 - 0.34 kUnits/L [facility] (TASHI) Comment:Testing performed by : [facility], [place]., [address] [place] IgE <0.10 0.00 - 0.34 kUnits/L [facility] (TASHI) Comment:Testing performed by : [facility], [place]., [address] Tomasz grass IgE 0.11 0.00 - 0.34 kUnits/L [facility] (TASHI) Comment:Testing performed by : [facility], [place]., [address] [place] (tree) IgE <0.10 0.00 - 0.34 kUnits/L [facility] (TASHI) Comment:Testing performed by : [facility], [place]., [address] IgE 146.2(H) 1.0 - 100.0 IUnits/mL [facility] (TASHI) Comment:Testing performed by : [place]., [address] Blood specimen (specimen) 10/22/2019 12:05 PM CDT 10/22/2019 5:01 PM CDT Louann Zhu DO LAB BLOOD ORDERABLES Final R esult SENAIT SALCEDO (TASHI) 1 [facility] Department [place] [address] documented in this encounter Visit Diagnoses Diagnosis Allergic rhinitis, unspecified seasonality, unspecified trigger documented in this encounter Care Teams Stitcher Operator Relationship Specialty Start Date End Date Charles Vogel MD [address] [place] [address] PCP - General 05/21/19 09/10/21 documented as of this encounter
--- OUTSIDE RECORDS SUMMARY | 2024-05-13 11:11 | XMS_ITS | Encounter Summary ---
Author Organization [facility] Address [address] [place] [address] Phone Care Team Providers Care Carton Gluing Machine Operator Name Role Phone Charles Vogel MD Primary Care Provider [phone]- [phone] Reason for Visit * Neurology (Routine) - Closed Specialty Diagnoses / Procedures Referred By Contac t Referred To Contact Diagnoses Numbness and tingling in both hands Procedures EMG/NCV -Please select the performing region: [facility] (All Locations); Procedure performed at: [facility] Ortho Physiatry Jesusita Jerez MD Phone: tel: fax: [facility] (All Locations) Referral ID Status Reason Start Date Expiration Date Visits Re quested Visits Authorized [id number] Closed 06/11/2020 07/11/2021 1 1 Encounter Details Date Type Department Care Team (Late st Contact Info) Description 06/23/2020 9:00 AM PLANER OFF BEARER Diagnostic [facility] Orthopaedic Surgery [address] [place] [address] Nicolas Stokes MD [address] [place] [address] Numbness and tingling in both hands Social History Tobacco Use Types Packs/Day Years Used Date Smoking Tobacco: Never Smokeless Tobacco: Current Snuff Alcohol Use Standard Drinks/Week Comments Yes 0 (1 standard drink = 0.6 oz pur e alcohol) SOCIAL Sex and Gender Information Value Date Recorded Sex Assigned at Not on file 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:34 PM PLANER OFF BEARER Gender Identity Not on file Sexual Orientation Not on file documented as of this encounter Progress Notes * Nicolas Mejía MD - 06/23/2020 9:00 AM CST Electrodiagnostic evaluation was performed today. Please see full report for details: linked under Media and/or Procedure tabs for this study. Under Media and/or Procedure tab, open this study, click on Neurology Scan to view full report. ER OFF BEARER documented in this encounter Plan of Treatment Not on file documented as of this encounter Procedures Procedure Name Priority Date/Time Associated Diagnosis Comments EMG/NCV Routine 06/23/2020 9:09 AM PLANER OFF BEARER Numbness and tingling in both hands documented in this encounter Results * EMG/NCV -Please select the performing region: [facility] (All Locations); Procedure performed at: [facility] Physiatry (06/23/2020 9:09 AM PLANER OFF BEARER) Anatomical Region Laterality Modality Other us Jesusita Jerez MD NEUROLOGY ORDERABLES Final Re sult documented in this encounter Visit Diagnoses Diagnosis Numbness and tingling in both hands documented in this encounter Care Teams Carton Gluing Machine Operator Relationship Specialty Start Date End Date Charles Vogel MD [address] [place] [id number] PCP - General 05/21/19 09/10/21 documented as of this encounter
--- OUTSIDE RECORDS SUMMARY | 2024-05-13 11:11 | XMS_ITS | Encounter Summary ---
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 No / Unsure 08/06/2019 12:48 PM CDT documented as of this encounter Plan of Treatment Not on file documented as of this encounter Visit Diagnoses Not on filedocumented in this encounter Care Teams Electrical Designer Relationship Specialty Start Date End Date Charles Vogel MD [address] [place] [address] PCP - General 05/21/19 09/10/21 documented as of this encounter
--- OUTSIDE RECORDS SUMMARY | 2024-05-13 11:11 | XMS_ITS | Encounter Summary ---
Author Organization [facility] Address [address] [place] [address] Care Team Providers Care Vertical Roll Operator Name Role Phone Charles Vogel MD Primary Care Provider [phone]- [phone] Reason for Visit * Reason Comments Post-op Encounter Details Date Type Department Care Team (Late st Contact Info) Description 01/10/2020 1:10 PM CDT Office Visit [facility] - [facility] [address] [place] [id number] Louann Zhu, [address] [place] [address] Deviated nasal septum (Primary Dx) Social History Tobacco Use Types Packs/Day Years Used Date Smoking Tobacco: Never Smokeless Tobacco: Current Snuff Alcohol Use Standard Drinks/Week Comments Yes 0 (1 standard drink = 0.6 oz pur e alcohol) Sex and Gender Information Value Date Recorded Sex Assigned at Not on file 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 Gender Identity Not on file Sexual Orientation Not on file documented as of this encounter Last Filed Vital Signs Vital Sign Reading Time Taken Comments Blood Pressure 120/74 01/10/2020 1:02 PM CDT Pulse 115 01/10/2020 1:02 PM CDT Temperature 36.6 ??C (97.8 ??F) 01/10/2020 1:02 PM CD T Respiratory Rate - - Oxygen Saturation - - Inhaled Oxygen Concentration - - Weight 114.3 kg (252 lb) 01/10/2020 1:02 PM CDT Height 180.3 cm (5' 11 ) 01/10/2020 1:02 PM CDT Body Mass Index 35.15 01/10/2020 1:02 PM CDT documented in this encounter Patient Instructions * Patient Instructions* Louann Zhu DO - 01/10/2020 1:10 PM CDT Continue Nasal saline 2-3 times per day Wear a Mask all the time at work Avoid nose blowing until seen in the office next week Have an appointment to see the Pharmacy Intern 01/22 documented in this encounter Progress Notes * Louann Zhu DO - 01/10/2020 1:10 PM CDT Images from the original note were not included. ENT Progress Note Reason for Follow up: s/p Septoplasty/Turb Requesting Provider: No att. providers found SUBJECTIVE: Patient was following up for s/p Septoplasty/Turb. HPI: Chuck reported complaint being improved, clear nasal secretions over the last couple of days. Last seen: 01/02/2020 PROCEDURE PERFORMED: Septoplasty Submucosal Reduction of Inferior Turbinates bilaterally Current Outpatient Medications on File Prior to Visit Medication Sig Dispense Refill ??? amLODIPine (NORVASC) 5 mg tablet Take 5 mg by mouth 2 (two) times a day ??? amoxicillin-clavulanate (AUGMENTIN) 875-125 mg per tablet Take 1 tablet by mouth 2 (two) times a day for 14 days 28 tablet 0 ??? HYDROcodone-acetaminophen (NORCO) 5-325 mg per tablet Take 1 tablet by mouth every 6 (six) hours as needed for pain for up to 15 doses 15 tablet 0 ??? lisinopriL (PRINIVIL,ZESTRIL) 10 mg tablet Take 20 mg by mouth daily ??? loratadine (CLARITIN) 10 mg tablet Take 10 mg by mouth daily No current facility-administered medications on file prior to visit. No Known Allergies OBJECTIVE: Vitals BP 120/74 (BP Location: Left arm, Patient Position: Sitting) Pulse 115 Temp 36.6 ??C (97.8 ??F) (Temporal) Ht 180.3 cm (5' 11 ) Wt 114.3 kg (252 lb) BMI 35.15 kg/m?? Review of Systems HENT: Positive for congestion and nosebleeds. Physical Exam HENT: Head: Normocephalic and atraumatic. Right Ear: External ear normal. Left Ear: External ear normal. Nose: Congestion present. Mouth/Throat: Mucous membranes are moist. Intranasally: splints in place, minimal debris, splints suture trimmed and splints removed with suture Nasal cavity suctioned and mucosa healing well. Septum in a more midline position and inferior turbinates without bleeding Eyes: Pupils are equal, round, and reactive to light. Abdominal: Normal appearance. Neurological: He is alert. Vitals reviewed. Assessment & Plan: Diagnoses and all orders for this visit: Deviated nasal septum (Primary) Assessment & Plan: Continue Nasal saline 2-3 times per day Wear a Mask all the time at work Avoid nose blowing until seen in the office next week Have an appointment to see the Pharmacy Intern 01/22 Louann Zhu DO documented in this encounter Miscellaneous Notes * Assessment & Plan Note - Louann Zhu DO - 01/10/2020 1:22 PM CDT Associated Problem(s): Deviated nasal septum Continue Nasal saline 2-3 times per day Wear a Mask all the time at work Avoid nose blowing until seen in the office next week Have an appointment to see the Pharmacy Intern 01/22 documented in this encounter Plan of Treatment Not on file documented as of this encounter Visit Diagnoses Diagnosis Deviated nasal septum- Primary documented in this encounter Care Teams Vertical Roll Operator Relationship Specialty Start Date End Date Charles Vogel MD [address] [place] [address] PCP - General 05/21/19 09/10/21 documented as of this encounter
--- OUTSIDE RECORDS SUMMARY | 2024-05-13 11:11 | XMS_ITS | Encounter Summary ---
Author Organization [facility] Address [address] [place] [address] Care Team Providers Care Press Feeder Name Role Phone Charles Vogel MD Primary Care Provider [phone]- [phone] Encounter Details Date Type Department Care Team (Late st Contact Info) Description 01/02/2020 10:41 AM CDT Anesthesia Event [facility] Operating Room [address] [place] [address] Eyad Wise MD [address] [facility] [address] [place] [address] Anesthesia Record Procedure Summary Procedure Name Responsible Anesthesiologist Anesthesia Start Time Anesthesia Stop Time SEPTOPLASTY and Inferior Turbinate Submucosal Reduction bilaterally. (Nose) Eyad Wise MD 01/02/20 1041 01/02/20 1203 Events Date Time Event Comment 01/02/2020 0937 1039 In Room 1041 An Start 1041 An Start Data 1045 An Induction The patient was reevaluated immediately before moderate or deep sedation use and before anesthesia induction. 1047 An Intubation 1050 Anesthesia Ready 1051 Proc Start 1058 Incision Start 1149 Proc Fin 1155 Out of Room 1155 An Extubation 1202 an stop data 1203 Handoff to RN I completed my handoff to the receiving nurse during which we: 1. Patient identified 2. Responsible provider identified 3. Pertinent medical history reviewed 4. Procedure type and surgical course discussed 5. Intraoperative anesthetic management and any significant issues discussed 6. Expectations and concerns for postop period discussed 7. Questions solicited from receiving nurse 8. Patient disposition at the time of handoff: PACU 1203 An Stop 1203 Release from care Meds Name Total midazolam 2 mg fentaNYL 100 mcg propofol 200 mg succinylcholine 180 mg phenylephrine 1,500 mcg ondansetron 4 mg esmolol 30 mg lidocaine 2 % PF 100 mg Lactated Ringer's (LR) infusion 1,400 mL * Agents Name O2 N2O Air Sevoflurane Inspired Sevoflurane * Blood No blood administrations on file. Lines, Drains, and Airways Type Details Placement Removal Peripheral IV Placement Date: 01/02/20; Placement Time: 0938; Catheter Size: 20 G; Orientation: Right; Location: Hand; Site Prep: Chlorhexidine; Technique: Anatomical landmarks; Insertion Attempts: 1; Patient Tolerance: Tolerated well; Removal Date: 01/02/20; Removal Time: 1422 01/02/20 0938 by Clari Velarde RN 01/02/20 1422 by Clari Velarde RN ETT Placement Date: 01/02/20; Placement Time: 1105 (created via procedure documentation); Mask Ventilation: 0; Technique: Video laryngoscopy; Type: ETT - single; Single Lumen Tube Size: 7.5 mm; Cuffed: Yes; Blade Size: 4; Location: Oral; Insertion Attempts: 1; Placement Verification: Auscultation, Capnometry; Removal Date: 01/02/20; Removal Time: 1155 01/02/20 1105 by Helen Altman CRNA 01/02/20 1155 by Helen Altman CRNA RETIRED Surgical Site 01/02/20; 1116; No se; 04/17/24 (Retired LDA, Removed/Completed by Toodalu with LDA Utility); 1213 (Retired LDA, Removed/Completed by [place]oodalu with LDA Utility) 01/02/20 1116 by Anita Lock RN 04/17/24 1213 by Discharge Provider, Automatic documented in this encounter Social History Tobacco Use Types Packs/Day Years Used Date Smoking Tobacco: Never Smokeless Tobacco: Current Snuff Alcohol Use Standard Drinks/Week Comments Yes 0 (1 standard drink = 0.6 oz pur e alcohol) Sex and Gender Information Value Date Recorded Sex Assigned at Not on file 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 (N/A Nose) Diagnosis: Deviated nasal septum Hypertrophy of inferior nasal turbinate (Deviated nasal septum [J34.2]) (Hypertrophy of inferior nasal turbinate [J34.3]) Provider: Louann Zhu DO Responsible Provider: Eyad Wise MD Anesthesia Type: general ASA Status: 2 Anesthesia Type: general Last vitals BP 114/76 Pulse 89 Temp 36.4 ??C (97.5 ??F) (Temporal) Resp 21 SpO2 92% Anesthesia Post Evaluation Patient location during evaluation: PACU Patient participation: complete - patient participated Level of consciousness: fully awake Pain score: 0 Pain management: adequate Airway patency: adequate Evidence of recall: no Anesthetic complications: no Cardiovascular status: acceptable Respiratory status: acceptable Hydration status: acceptable Pt is: normothermic Nausea/Vomiting status: none * Anesthesia Procedure Notes - Helen Altman CRNA - 01/02/2020 11:05 AM CDT Associated Order(s): Airway Airway Patient location: OR Urgency: elective Indications for airway management: anesthesia Difficult airway: no Staff: Supervising provider: Eyad Wise MD Placed by: PROCESS DEVELOPMENT MANAGER: Helen Altman CRNA Emergent airway documentation: Risks and benefits discussed: yes Consent obtained: yes Consent given by: patient Airway prep: Preoxygenated: yes Mask difficulty assessment: 0 - not attempted Sedation level during airway: GA Final airway details: Final airway type: endotracheal airway Tube type: ETT ETT size: 7.5 mm Cuffed: yes Technique used for successful ETT placement: video laryngoscopy Devices/Methods used in placement: intubating stylet Insertion site: oral Video blade type: Viera Blade size: 4 Cormack-Lehane (video): grade IIa - partial view of glottis Cuff volume: 8 mL Cuff inflated with: air ETT to lips: 22 cm Placement verified by: auscultation and CO2 detection Airway secured with: silk tape Number of attempts: 1 * Anesthesia Preprocedure Evaluation - Eyad Wise MD - 01/02/2020 9:33 AM CDT Images from the original note were not included. Anesthesia Evaluation Chuck Barlow is a 24 y.o. male Procedure(s): SEPTOPLASTY and inferior turbinate submucosal reduction bilaterally. Pre-Op Diagnosis Codes: * Deviated nasal septum [J34.2] * Hypertrophy of inferior nasal turbinate [J34.3] HISTORY Past Medical History Neurological Neuro/Psych system: negative Cardiovascular + Hypertension Respiratory Respiratory system: negative Renal / Renal/ system: negative Endocrine / Other + Obesity (BMI >30) Functional Capacity Functional capacity: 4-6 METs Patient Active Problem List Diagnosis ??? Allergic rhinitis ??? Deviated nasal septum ??? Hypertrophy of both inferior nasal turbinates ??? Hypertrophy of inferior nasal turbinate Past Medical History: Diagnosis Date ??? Hypertension History reviewed. No pertinent surgical history. No Known Allergies Med List Status: Nurse Complete Set By: Adelita White RN at 12/28/2019 9:48 AM Taking? Last Dose Start Date End Date Provider amLODIPine (NORVASC) 5 mg tablet 01/02/2020 10/14/19 -- Historical Provider, lisinopriL (PRINIVIL,ZESTRIL) 10 mg tablet 01/02/2020 10/15/19 -- Historical ProviderMD loratadine (CLARITIN) 10 mg tablet 12/26/2019 -- -- Historical Provider, No current facility-administered medications for this encounter. Social History Tobacco Use Smoking Status Never Smoker Smokeless Tobacco Current User ??? Types: Snuff Substance and Sexual Activity Alcohol Use Yes Substance and Sexual Activity Drug Use Not Currently No family history on file. Vitals: 01/02/20 0920 BP: 143/99 Pulse: 99 Resp: 18 Temp: 37.2 ??C (98.9 ??F) SpO2: 100% PT: No results found for requested labs within last 720 hours. INR: No results found for requested labs within last 720 hours. APTT: No results found for requested labs within last 720 hours. Hgb A1C: No results found for requested labs within last 720 hours. CBC RBC: No results found for requested labs within last 720 hours. RDW: No results found for requested labs within last 720 hours. MCHC: No results found for requested labs within last 720 hours. MCH: No results found for requested labs within last 720 hours. MCV: No results found for requested labs within last 720 hours. Hct: No results found for requested labs within last 720 hours. Hgb: No results found for requested labs within last 720 hours. WBC: No results found for requested labs within last 720 hours. MPV: No results found for requested labs within last 720 hours. Platelets: No results found for requested labs within last 720 hours. RDW CV: No results found for requested labs within last 720 hours. RDW Sd: No results found for requested labs within last 720 hours. BMP Glucose: No results found for requested labs within last 720 hours. Calcium: No results found for requested labs within last 720 hours. Sodium: No results found for requested labs within last 720 hours. Potassium: No results found for requested labs within last 720 hours. CO2: No results found for requested labs within last 720 hours. Chloride: No results found for requested labs within last 720 hours. BUN: No results found for requested labs within last 720 hours. Creatinine: No results found for requested labs within last 720 hours. DOS Physical Exam Medical history, medications, and allergies reviewed. Attestation: This PAT evaluation 01/02/2020. Airway Exam: Mallampati: II Cervical ROM: FROM TM distance: normal Jaw ROM: full Cardiovascular Exam: Rate: regular Rhythm: regular Pulmonary Exam: LCTA EENT Exam: trachea midline Dental Exam: Appears intact Skin Exam: Skin is warm. Turgor is normal. Abdominal Exam: Abdomen is soft. Current state: Patient's current state is cooperative. Anesthesia Plan ASA 2 Planned anesthesia: General Team communication plan: oral ET tube Induction: Induction: intravenous. Postoperative Plan: Postoperative administration opioids intended. No postoperative mechanical ventilation intended. Patient's planned disposition post procedure is Outpatient. Informed Consent: Discussed plan with PROCESS DEVELOPMENT MANAGER. Anesthesia plan and risks discussed with patient. Plan and Consent Comments: Plan for GETA w/ LTA. Multimodal analgesia and PONV prophylaxis Eyad Wise MD Consent and Attending signature: I and/or my designee have discussed the anesthesia plan, benefits, possible alternatives, parental presence at time of induction (if indicated), and clinically relevant risks that may include dental injury, unintentional awareness, and/or other complications. The patient and/or parent/legal guardian understand, and agree to proceed. All questions answered. documented in this encounter Plan of Treatment Not on file documented as of this encounter Procedures Procedure Name Priority Date/Time Associated Diagnosis Comments WI AN ELECTIVE ENDOTRACHEAL AIRWAY Routine 01/02/2020 11:05 AM CDT documented in this encounter Results * WI AN ELECTIVE ENDOTRACHEAL AIRWAY (01/02/2020 11:05 AM CDT) Helen Ho CRNA - 01/02/2020 11:05 AM CDT Helen Altman CRNA ? 01/02/2020 11:05 AM Airway Patient location: OR Urgency: elective Indications for airway management: anesthesia Difficult airway: no Staff: Supervising provider: Eyad Wise MD Placed by: PROCESS DEVELOPMENT MANAGER: Helen Altman CRNA Emergent airway documentation: Risks and benefits discussed: yes Consent obtained: yes Consent given by: patient Airway prep: Preoxygenated: yes Mask difficulty assessment: 0 - not attempted Sedation level during airway: GA Final airway details: Final airway type: endotracheal airway Tube type: ETT ETT size: 7.5 mm Cuffed: yes Technique used for successful ETT placement: video laryngoscopy Devices/Methods used in placement: intubating stylet Insertion site: oral Video blade type: Viera Blade size: 4 Cormack-Lehane (video): grade IIa - partial view of glottis Cuff volume: 8 mL Cuff inflated with: air ETT to lips: 22 cm Placement verified by: auscultation and CO2 detection Airway secured with: silk tape Number of attempts: 1 us Eyad Wise MD ANESTHESIA ORDERABLES Final Res ult documented in this encounter Visit Diagnoses Not on filedocumented in this encounter Administered Medications Inactive Administered Medications - up to 3 most recent administrations Medication Order MAR Action Action Date Dose Rate Site esmoloL (BREVIBLOC) injection Administer over 1 Minutes, As needed, Starting on Tue01/02/20 at 1045, Anesthesia Intra-op Given 01/02/2020 10:45 AM CDT 30 mg fentaNYL (SUBLIMAZE) preservative free injection intravenous, As needed, Starting on Tue01/02/20 at 1045, Anesthesia Intra-op Given 01/02/2020 11:10 AM CDT 50 mcg Given 01/02/2020 10:45 AM CDT 50 mcg Lactated Ringer's (LR) infusion 30 mL/hr, intravenous, Continuous, Starting on Tue01/02/20 at 1015, Pre-Op New Bag 01/02/2020 11:25 AM CDT 100 mL/hr Rate/Dose Verify 01/02/2020 10:41 AM CDT 100 mL /hr lidocaine (XYLOCAINE) 20 mg/mL (2 %) preservative free injection As needed, Starting on Tue01/02/20 at 1045, Anesthesia Intra-op Given 01/02/2020 10:45 AM CDT 100 mg midazolam (VERSED) preservative free injection intravenous, Administer over 2 Minutes, As needed, Starting on Tue01/02/20 at 1045, Anesthesia Intra-op Given 01/02/2020 10:45 AM CDT 2 mg ondansetron (ZOFRAN) injection intravenous, Administer over 2 Minutes, As needed, Starting on Tue01/02/20 at 1136, Anesthesia Intra-op Given 01/02/2020 11:36 AM CDT 4 mg phenylephrine (KHUSHBOO-SYNEPHRINE) injection intravenous, As needed, Starting on Tue01/02/20 at 1100, Anesthesia Intra-op Given 01/02/2020 11:47 AM CDT 100 mc g Given 01/02/2020 11:43 AM CDT 200 mcg Given 01/02/2020 11:36 AM CDT 200 mcg propofoL (DIPRIVAN) IV intravenous, As needed, Starting on Tue01/02/20 at 1045, Anesthesia Intra-op Given 01/02/2020 10:45 AM CDT 200 mg succinylcholine (ANECTINE) injection intravenous, As needed, Starting on Tue01/02/20 at 1046, Anesthesia Intra-op Given 01/02/2020 10:46 AM CDT 180 mg documented in this encounter Care Teams Press Feeder Relationship Specialty Start Date End Date Charles Vogel MD [address] [place] [address] PCP - General 05/21/19 09/10/21 documented as of this encounter
--- OUTSIDE RECORDS SUMMARY | 2024-05-13 11:11 | XMS_ITS | Encounter Summary ---
Author Organization [facility] Address [address] [place] [address] Care Team Providers Care Paper Coater Name Role Phone Charles Vogel MD Primary Care Provider [phone]- [phone] Reason for Referral * Diagnostic Imaging (Routine) - Closed Specialty Diagnoses / Procedures Referred By Contac t Referred To Contact Radiology Diagnoses Unspecified injury of muscle and tendon of unspecified wall of thorax, initial encounter Procedures MRI Thoracic Spine WO Contrast Andrae Frausto MD [address] [place] [address] Phone: tel: fax: Referral ID Status Reason Start Date Expiration Date Visits Re quested Visits Authorized [id number] Closed 05/17/2019 11/25/2020 1 1 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 MARKER SUPERVISOR Reason for Visit * Diagnostic Imaging (Routine) - Closed Specialty Diagnoses / Procedures Referred By Contac t Referred To Contact Radiology Diagnoses Unspecified injury of muscle and tendon of unspecified wall of thorax, initial encounter Procedures MRI Thoracic Spine WO Contrast Andrae Frausto MD [address] [place] [address] Phone: tel: fax: Referral ID Status Reason Start Date Expiration Date Visits Re quested Visits Authorized [id number] Closed 05/17/2019 11/25/2020 1 1 Encounter Details Date Type Department Care Team (Late st Contact Info) Description 05/21/2019 1:48 PM LAUNDRY MARKER SUPERVISOR - 05/21/2019 11:59 PM LAUNDRY MARKER SUPERVISOR Hospital Encounter [facility] [address] [place] [address] Andrae Frausto MD [address] [place] [address] Unspecified injury of muscle and tendon of unspecified wall of thorax, initial encounter Discharge Disposition: Discharge to home or self care Social History Tobacco Use Types Packs/Day Years Used Date Smoking Tobacco: Never Assessed Sex and Gender Information Value Date Recorded Sex Assigned at Not on file 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:34 PM 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 MARKER SUPERVISOR Gender Identity Not on file Sexual Orientation Not on file documented as of this encounter Discharge Disposition Disposition Code Departure Means Destination Discharge to home or self care documented in this encounter Plan of Treatment Not on file documented as of this encounter Procedures Procedure Name Priority Date/Time Associated Diagnosis Comments MRI THORACIC SPINE WO CONTRAST Schedule Routine, Read Routine (OP Routine) 05/21/2019 2:39 PM LAUNDRY MARKER SUPERVISOR Unspecified injury of muscle and tendon of unspecified wall of thorax, initial encounter documented in this encounter Results * MRI Thoracic Spine WO Contrast (05/21/2019 2:39 PM LAUNDRY MARKER SUPERVISOR) Anatomical Region Laterality Modality Spine N/A Magnetic Resonan ce 05/21/2019 2:06 PM LAUNDRY MARKER SUPERVISOR Narrative 05/21/2019 5:30 PM LAUNDRY MARKER SUPERVISOR [facility] ?Imaging Result Name: CHUCK BARLOW ?Ordering Phys: ANDRAE FRAUSTO Age: 24 ?Date of : 1995 ? Accession Number: [id number] Date of Service: 05/21/2019 ??Gender: M EXAM DESCRIPTION: ??MRI THORACIC SPINE WO CONTRAST REASON FOR STUDY: ??Mid thoracic pain. ??No known injury. Duration: 6 months TECHNIQUE: ??Sagittal and Axial imaging includes T1, T2, STIR and gradient echo sequences. COMPARISON: ??None. ??ALIGNMENT: Normal. VERTEBRAE: No definite acute compression fracture is identified although there is considerable pulsation artifact on the STIR sequence. ??No concerning marrow replacement. HARDWARE: None in the spine. CORD: Normal in caliber without expansion or atrophy. ??No definite intramedullary T2 signal is noted. ??No enlarged perimedullary flow voids or epidural fluid collections. THORACIC DISCS T1-T12: Mild thoracic disc degeneration is noted. ??However given limitations of technique, no large disc herniation, spinal canal stenosis or cord compression. ??No foraminal narrowing. SOFT TISSUES: Paraspinous soft tissues are unremarkable. LOWER CERVICAL: Very limited however there is mild lower cervical disc degeneration at C6-7. UPPER LUMBAR: Limited but unremarkable. OTHER: No other significant abnormality. IMPRESSION: 1. ??Mild lumbar disc degeneration. ??No disc herniation, spinal canal stenosis or spinal cord compression. 2. ??No definite acute thoracic spine compression fracture. THIS IS AN ELECTRONICALLY VERIFIED FINAL REPORT 05/21/2019 5:27 PM - Electronically signed by Bony Marcano D.O. : D: ??05/21/2019 5:27 PM T: ??05/21/2019 5:27 PM Report ID: [id number] Reading Location: ??[id number] Procedure Note Bony Marcano DO - 05/21/2019 [facility] Imaging Result Name: CHUCK BARLOW Ordering Phys: ANDRAE FRAUSTO Age: 24 Date of : 1995 Accession Number: [id number] Date of Service: 05/21/2019 Gender: M EXAM DESCRIPTION: MRI THORACIC SPINE WO CONTRAST REASON FOR STUDY: Mid thoracic pain. No known injury. Duration: 6months TECHNIQUE: Sagittal and Axial imaging includes T1, T2, STIR and gradientecho sequences. COMPARISON: None. ALIGNMENT: Normal. VERTEBRAE: No definite acute compression fracture is identified althoughthere is considerable pulsation artifact on the STIR sequence. No concerningmarrow replacement. HARDWARE: None in the spine. CORD: Normal in caliber without expansion or atrophy. No definite intramedullary T2 signal is noted. No enlarged perimedullary flow voidsor epidural fluid collections. THORACIC DISCS T1-T12: Mild thoracic disc degeneration is noted.However given limitations of technique, no large disc herniation, spinal canal stenosis or cord compression. No foraminal narrowing. SOFT TISSUES: Paraspinous soft tissues are unremarkable. LOWER CERVICAL: Very limited however there is mild lower cervical disc degeneration at C6-7. UPPER LUMBAR: Limited but unremarkable. OTHER: No other significant abnormality. IMPRESSION: 1. Mild lumbar disc degeneration. No disc herniation, spinal canalstenosis or spinal cord compression. 2. No definite acute thoracic spine compression fracture. THIS IS AN ELECTRONICALLY VERIFIED FINAL REPORT 05/21/2019 5:27 PM - Electronically signed by Bony Marcano D.O. : Report ID: [id number] Reading Location: [place] [address] Andrae Frausto MD IMG MRI PROCEDURES Final R esult documented in this encounter Visit Diagnoses Diagnosis Unspecified injury of muscle and tendon of unspecified wall of thorax, initial encounter documented in this encounter Care Teams Paper Coater Relationship Specialty Start Date End Date Charles Vogel MD [address] [place] [address] PCP - General 05/21/19 09/10/21 documented as of this encounter
--- OUTSIDE RECORDS SUMMARY | 2024-05-13 11:11 | XMS_ITS | Encounter Summary ---
Author Organization [facility] Address [address] [place] [address] Care Team Providers Care Jewel Inspector Name Role Phone Charles Vogel MD Primary Care Provider [phone]- [phone] Reason for Visit * Reason Comments Hypertension Encounter Details Date Type Department Care Team (Late st Contact Info) Description 06/01/2019 10:36 PM LASER BEAM CUTTER - 06/01/2019 11:44 PM LASER BEAM CUTTER Emergency [facility] Emergency Department [address] [place] [address] Martin Perla MD [address] [place] [id number] Hypertension, unspecified type (Primary Dx) Discharge Disposition: Discharge to home or self care Social History Tobacco Use Types Packs/Day Years Used Date Smoking Tobacco: Never Assessed Sex and Gender Information Value Date Recorded Sex Assigned at Not on file 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:34 PM LASER BEAM CUTTER Gender Identity Not on file Sexual Orientation Not on file documented as of this encounter Last Filed Vital Signs Vital Sign Reading Time Taken Comments Blood Pressure 133/92 06/01/2019 11:30 PM LASER BEAM CUTTER Pulse 90 06/01/2019 11:30 PM LASER BEAM CUTTER Temperature 36.7 ??C (98 ??F) 06/01/2019 10:38 PM LASER BEAM CUTTER Respiratory Rate 23 06/01/2019 11:30 PM LASER BEAM CUTTER Oxygen Saturation 96% 06/01/2019 11:30 PM LASER BEAM CUTTER Inhaled Oxygen Concentration - - Weight - - Height - - Body Mass Index - - documented in this encounter Discharge Diagnoses Diagnosis Essential (primary) hypertension - ESSENTIAL (PRIMARY) HYPERTENSION Unspecified essential hypertension Other group home (current) drug therapy - OTHER [facility] (CURRENT) DRUG THERAPY documented in this encounter Discharge Instructions * Attachments The following attachments cannot be sent through Care Everywhere. * Hypertension, Established (Wallisian) documented in this encounter Medications at Time of Discharge Medication Sig Dispense Quantity Refills Last Filled Start D ate End Date amoxicillin (AMOXIL) 875 mg tablet 05/31/2019 12/28/2019 labetalol (NORMODYNE,TRANDATE) 100 mg tablet 05/31/2019 12/28/2019 documented as of this encounter Discharge Disposition Disposition Code Departure Means Destination Comment s Discharge to home or self care Discharge instructions reviewed. Pt verbalizes understanding. documented in this encounter ED Notes * Martin Perla MD - 06/01/2019 10:41 PM CST HPI Chief Complaint Patient presents with ??? Hypertension Patient is a 24-year-old male presents emergency room stating his blood pressure has been high. Patient states his blood pressure has been high over the past couple months-primary physician started him on labetalol yesterday. Patient denies any vision changes speech changes or localized weakness ornumbness. There's no chest pain shortness of breath cough fevers or chills. No nausea vomiting diarrhea. No urinary symptoms. Currently blood pressure is 148/105. There is no aggravating or alleviating factors. There's no other complaints of further Patient History There are no active problems to display for this patient. History reviewed. No pertinent past medical history. No past surgical history on file. History reviewed. No pertinent family history. Social History Tobacco Use ??? Smoking status: Not on file Substance Use Topics ??? Alcohol use: Not on file ??? Drug use: Not on file Social History Patient does not qualify to have social determinant information on file (likely too young). Social History Narrative ??? Not on file Review of Systems Review of Systems All other systems reviewed and are negative. Physical Exam ED Triage Vitals [06/01/19 2238] Temp Pulse Resp BP SpO2 36.7 ??C (98 ??F) 97 18 (!) 155/114 97 % Temp src Heart Rate Source Patient Position BP Location FiO2 (%) -- -- -- -- -- Physical Exam Vitals signs and nursing note reviewed. Constitutional: General: He is not in acute distress. Appearance: Normal appearance. He is well-developed. He is not ill-appearing, toxic-appearing or diaphoretic. HENT: Head: Normocephalic and atraumatic. Right Ear: Tympanic membrane normal. Left Ear: Tympanic membrane normal. Mouth/Throat: Mouth: Mucous membranes are moist. Pharynx: Oropharynx is clear. Eyes: Extraocular Movements: Extraocular movements intact. Conjunctiva/sclera: Conjunctivae normal. Pupils: Pupils are equal, round, and reactive to light. Neck: Musculoskeletal: Normal range of motion and neck supple. Cardiovascular: Rate and Rhythm: Normal rate and regular rhythm. Pulses: Normal pulses. Heart sounds: Normal heart sounds. Pulmonary: Effort: Pulmonary effort is normal. No respiratory distress. Breath sounds: Normal breath sounds. Abdominal: General: Bowel sounds are normal. Palpations: Abdomen is soft. Tenderness: There is no tenderness. Musculoskeletal: Normal range of motion. Skin: General: Skin is warm and dry. Capillary Refill: Capillary refill takes less than 2 seconds. Neurological: General: No focal deficit present. Mental Status: He is alert and oriented to person, place, and time. Gait: Gait normal. Psychiatric: Thought Content: Thought content normal. [facility] ED Course as of Jun 01 2334 Time: 06/01 2329 Comment: Blood pressure 133/92, will discharge patient with him to follow up with primary on Tuesday By: Martin Perla MD Hypertension, unspecified type Martin Perla MD 06/01/192334 R BEAM CUTTER * Adama Arroyo RN - 06/01/2019 10:36 PM CST Pt arrives with C/O hypertension. Pt states my blood pressure has been through the roof. It was 160/115 earlier. Pt started blood pressure medicine yesterday from PCP. Pt denies headache, blurry vision. R BEAM CUTTER documented in this encounter Plan of Treatment Not on file documented as of this encounter Visit Diagnoses Diagnosis Hypertension, unspecified type- Primary documented in this encounter Historical Medications * This list may reflect changes made after this encounter. Medication Sig Dispense Quantity Refills Last Filled Start D ate End Date labetalol (NORMODYNE,TRANDATE) 100 mg tablet 05/31/2019 12/28/2019 amoxicillin (AMOXIL) 875 mg tablet 05/31/2019 12/28/2019 added in this encounter Care Teams Jewel Inspector Relationship Specialty Start Date End Date Charles Vogel MD [address] [place] [address] PCP - General 05/21/19 09/10/21 documented as of this encounter
--- OUTSIDE RECORDS SUMMARY | 2024-05-13 11:11 | XMS_ITS | Encounter Summary ---
Author Organization [facility] Healthcare Address [address] [place] [address] Care Team Providers Care Leather Scrubber Name Role Phone Pankaj Rosenberg MD Primary Care Provider [phone] Encounter Details Date Type Department Care Team (Latest Contact Info) Description 09/11/2021 11:36 PM CDT - 09/15/2021 3:51 PM CDT Hospital Encounter [facility] [address] [place] [address] Desmond [place] [id number] [place] [id number] Discharge Disposition: Discharge to home or self care Social History Tobacco Use Types Packs/Day Years Used Date Smoking Tobacco: Never Smokeless Tobacco: Former Snuff Quit: 09/12/2020 Alcohol Use Standard Drinks/Week Comments Yes 0 (1 standard drink = 0.6 oz pur e alcohol) SOCIAL Sex and Gender Information Value Date Recorded Sex Assigned at Not on file 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 Gender Identity Not on file Sexual Orientation Not on file documented as of this encounter Last Filed Vital Signs Vital Sign Reading Time Taken Comments Blood Pressure 134/95 09/15/2021 7:37 AM CDT Pulse 96 09/15/2021 12:51 PM CDT Temperature 36.2 ??C (97.2 ??F) 09/15/2021 7:37 AM CD T Respiratory Rate 18 09/15/2021 7:37 AM CDT Oxygen Saturation 97% 09/15/2021 7:37 AM CDT Inhaled Oxygen Concentration - - Weight 115.1 kg (253 lb 11.2 oz) 2021 12:02 AM CDT Height 180.3 cm (5' 11 ) 09/12/2021 12: 02 AM CDT Body Mass Index 35.38 09/12/2021 12:02 AM CDT documented in this encounter Discharge Diagnoses Diagnosis Other partial intestinal obstruction (HCC) - OTHER PARTIAL INTESTINAL OBSTRUCTION Type 2 diabetes mellitus without complications (CMS/HCC) (HCC) - TYPE 2 DIABETES MELLITUS WITHOUT COMPLICATIONS Obesity, unspecified - OBESITY, UNSPECIFIED Essential (primary) hypertension - ESSENTIAL (PRIMARY) HYPERTENSION Unspecified essential hypertension Other irritable bowel syndrome - OTHER IRRITABLE BOWEL SYNDROME Hyperlipidemia, unspecified - HYPERLIPIDEMIA, UNSPECIFIED Obstructive sleep apnea (adult) (pediatric) - OBSTRUCTIVE SLEEP APNEA (ADULT) (PEDIATRIC) Other chronic pain - OTHER CHRONIC PAIN Other seasonal allergic rhinitis - OTHER SEASONAL ALLERGIC RHINITIS Gastro-esophageal reflux disease without esophagitis - GASTRO-ESOPHAGEAL REFLUX DISEASE WITHOUT ESOPHAGITIS Cholesterolosis of gallbladder - CHOLESTEROLOSIS OF GALLBLADDER roasterman (current) use of oral hypoglycemic drugs - MECHANICAL ENERGY ENGINEER (CURRENT) USE OF ORAL HYPOGLYCEMIC DRUGS Other ocean transportation intermediary (current) drug therapy - OTHER MECHANICAL ENERGY ENGINEER (CURRENT) DRUG THERAPY Family history of ischemic heart disease and other diseases of the circulatory system - FAMILY HISTORY OF ISCHEMIC HEART DISEASE AND OTHER DISEASES OF THE CIRCULATORY SYSTEM documented in this encounter Discharge Summaries * Desmond Ro DO - 09/15/2021 2:14 PM CDT Inpatient Discharge Summary Patient Name - Chuck Barlow Patient Age - 26 yrs Patient - [id number] [facility] - [id number] Document Creation Date: 09/15/2021 Admitting Provider, MD: Jovita Cardoso MD Discharge Provider, : Desmond Ro DO Primary Care Physician at Discharge: Pankaj Rosenberg MD [phone] Admission Date: 09/11/2021 Discharge Date/time: 09/15/2021 Admission Location: [facility] LOS - LOS: 4 days DETAILS OF HOSPITAL STAY Hospital Problems/Diagnoses Principal Problem: Severe Partial Small Bowel Obstruction Active Problems: Allergic rhinitis Primary hypertension Pure hypercholesterolemia Gastroesophageal reflux disease without esophagitis KARRIE (obstructive sleep apnea) Controlled type 2 diabetes mellitus without complication, without long-term current use of insulin ([facility]/HCC) (HCC) 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 Per H&P HPI: Patient presented to the ER at [facility] with complaints of mid abdominal pain rated at worsen 01/31. Patient stated pain began gradually 3 days ago he noted an associated fever. Pain continued to worsen, night pain was so severe patient was unable to sleep described as sharp and burning he came to the emergency room in the morning. Patient stated he has been followed by GI doctor Bob Oneal in [place] for other issues he has been referred to a surgeon for gallbladder removal related to polyps that have been increasing in his gallbladder. Patient stated he had a colonoscopy and endoscopy done by Dr. Oneal approximately 2 weeks ago he had a polyp removed which came back benign. Patient has been diagnosed with sleep apnea currently does not have a CPAP he is waiting to follow up with Pulmonary stated his appointment is in March. Patient is a diabetic currently on Januvia daily, he was placed on metformin and glipizide both caused abdominal pain and diarrhea. Patient had 2 diarrhea stools this morning denies nausea and vomiting he reports having chronic constipation alternating with diarrhea, current pain is something new hehas not experienced before. He has had previous abdominal pain short episode which has resolved without interventions over the past several months. Patient has not eaten today. Hospital Course: He was started on IVF and IV Pain control. General surgery was consulted, evaluated the patient, and reported: 26 y/o M w/ chronic abd pain admitted with abd pain I'm not convinced that he has any evidence of a bowel obstruction. His abd is soft and ND. He is also not nauseous or having emesis now. I've ordered a small bowel series to confirm that he does not have an obstruction. He does have a gallbladder polyp but there is no evidence of an acute infectious process. Based on his recent US results, this has increased in size slightly. He may have symptomatic gallbladder disease due to his polyp but this is not guaranteed especially since his HIDA scan was unremarkable. he told me that the has an appointment with a general surgeon in [place] later in the week with respect to his GB polyp. I encouraged him to get another opinion to see if cholecystectomy may help him. He can be on a regular diet from a surgical standpoint. ?? However, Small bowel follow through was positive for partial small bowel obstruction. The patient began vomiting bilious emesis on 09/13 HS. Nasogastric tube was placed to Low intermittent suction on 09/14. At this time, case management informed hospitalist staff that his insurance, [employer], is out of network for [facility] and [facility]. The patient was informed of this and transfer to an in-network facility was requested. Per Case Management Note: CM met with pt at bedside to complete assessment for initial discharge planning.??Verbal consent obtained to proceed with mother Lizeth & significant other Mary at bedside.??Demographics verified per face sheet.??His father is emergency contact. Pt lives with Mary & 4yr old child. 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 Informed pt that [employer] is in-network with [facility] facilities, ie. [facility], [facility], [facility], [facility], & also [facility]. Attending & General Surgery informed & state pt is stable for transfer. Pt/family agreeable to transfer to in-network facility. [facility] was provided to attending to initiate transfer process (P:??[phone], [facility] [phone], [facility] [phone])/ However, after notification received from , MIKE called [facility] but was given instructions on a different process. This was escalated to CM Press Breaker Christianne for follow-up. ?? This occurred as above. As the hospitalist, I (Desmond Ro) contacted the transfer center and placed the request. They insisted that the patient could not be contacted until case management at our facility contacted and confirmed with case management at their facilities that they indeed accepted the insurance. This was further escalated as this barrier was not overcome. I was contacted around 7pm on 09/14/2021 by the patient's nurse whom stated that the family, specifically the patient's uncle, had been in communication with the division chief at [facility] and that the patient would be accepted and have a bed there. I contacted the transfer center again. They reported that [facility] did n ot have any beds and it would be a 3-5 day wait. They do have beds at [facility] and would start the transfer process there. I asked them to continue that process and I would contact the family to ask for their consent or redirection. They reported that they had assurances that [facility] would beable to take them, to place the transfer, the patient would be in the bed pool, and they would select him from the pool and get him a bed. I once again called the transfer center to relay this information. They again stated that they did not see how this was possible as there were no beds. I had been given the direct contact number for the [facility] PRELOAD SUPERVISOR and called it to add them to the call and attempt to sort this out. There was no answer and a message was left detailing the situation. The transfer center reported that a new person would be taking over the case as the one I had been speaking with was going off shift. I asked if they could provide me with the stone decorator case management or social work number so that I may relay it to the stone decorator case management rn or social scientist at [facility]. I did not hear back on 09/14. He received a bed at [facility] on September 15. I updated him on his condition(s), workup(s), treatment(s), and discharge plan. All of his questions were answered to his satisfaction. He was set up for transfer in stable condition on September 15, 2021. Discharge Details Physical Exam at Discharge: Discharge Condition: fair Pulse: 96 Resp: 18 BP: 134/95 Temp: 36.2 ??C (97.2 ??F) Weight: 115.1 kg (253 lb 11.2 oz) Pertinent Exam Findings at Discharge: Consistent with baseline. Discharge Disposition: Code Status at Discharge: Full Code Active Issues & Recommended Plan for Follow-up: Allergies: Patient has no known allergies. Discharge Medications: Your medication list START taking these medications Instructions Last Dose Given Next Dose Due sodium chloride 0.65 % nasal spray Commonly known as: OCEAN Administer 1 spray into each nostril as needed for congestion CHANGE how you take these medications Instructions Last Dose Given Next Dose Due lisinopriL 20 mg tablet Commonly known as: PRINIVIL,ZESTRIL What changed: ?? how much to take ?? when to take this ?? Another medication with the same name was removed. Continue taking this medication, and follow the directions you see here. Take 1 tablet (20 mg total) by mouth daily loratadine 10 mg tablet Commonly known as: CLARITIN What changed: ?? when to take this ?? reasons to take this Take 1 tablet (10 mg total) by mouth daily as needed for allergies CONTINUE taking these medications Instructions Last Dose Given Next Dose Due amLODIPine 10 mg tablet Commonly known as: NORVASC atorvastatin 20 mg tablet Commonly known as: LIPITOR cetirizine 5 mg chewable tablet Commonly known as: ZyrTEC montelukast 10 mg tablet Commonly known as: SINGULAIR omeprazole 40 mg capsule Commonly known as: PriLOSEC SITagliptin 25 mg tablet Commonly known as: JANUVIA Where to Get Your Medications Information about where to get these medications is not yet available Ask your nurse or doctor about these medications ?? lisinopriL 20 mg tablet ?? loratadine 10 mg tablet ?? sodium chloride 0.65 % nasal spray Time Spent in Discharge Process: I have spent 40 minutes on discharge planning activities. Time spent was on Counselling with patient/family, coordination of care Test Results Pending at Discharge (If Blank, None Found): Operative Procedures Performed (If Blank, None Found): Outpatient Follow-Up: Please schedule an appointment with the following provider(s): No follow-up provider specified. ANCILLARY INFORMATION Other Procedures & Diagnostic Tests: CT Abdomen Pelvis W Contrast Result Date: 09/11/2021 EXAM DESCRIPTION: CT ABDOMEN PELVIS W CONTRAST REASON FOR STUDY: Bowel obstruction high-grade suspected Severe abdominal pain for 3 days / GI surgery as an TECHNIQUE: CT scan of the abdomen and pelvis performed with intravenous and without oral contrast using helical scanning technique with d ynamic intravenous contrast injection. Reconstructed coronal and sagittal MPR images reviewed. All images stored on PACS. Automated exposure control was used as a dose optimization technique for thisexamination. CONTRAST TYPE/DOSE: 125mL of IOVERSOL 350 MG IODINE/ML INTRAVENOUS SOLUTION injected via intravenous COMPARISON: None FINDINGS: LOWER CHEST: Visualized lung bases are clear. LIVER: Liveris normal in size. No definite liver lesion [...] is partially distended. No substantial wall thickening or stranding. GI: There is stool throughout a nondilated colon. The cecum is located within the left midabdomen. The appendix is not definitely seen. The terminal ileum appears grossly normal. There is fluid throughout the small bowel. The distal small bowel is nondilated. There are prominent air and fluid- filled loops of small bowel within the right lower quadrant measuring up to 3.3 cm. No definite transition point is seen. The proximal jejunum is decompressed and located within the right-sided of the abdomen with relative paucity of small bowel within the left abdomen. The stomach and duodenum appear grossly normal. PERITONEUM: No free air or ascites. Mild mesenteric stranding. Prominent mesenteric lymph nodes, likely reactive. For reference is a 1.4 x 0.7 cm lymph node (108). RETROPERITONEUM: No retroperitoneal lymphadenopathy subcentimeter retroperitoneal lymph nodes noted. REPRODUCTIVE: No significant abnormality. VASCULATURE: Aorta is normal caliber. MUSCULOSKELETAL: Bone windows demonstrate no suspicious lytic or sclerotic lesion. OTHER: No other abnormality. IMPRESSION: 1. Mildly dilated small bowel loops within the right lower quadrant. No definite transition point is seen. This is favored to represent enteri tis/ileus rather than developing obstruction. Recommend close monitoring of the patient's abdominalexam and continued follow-up. 2. Abnormal configuration of [...] VERIFIED FINAL REPORT 09/11/2021 2:27 PM - Electronic ally signed by Bony Tristan M.D. AG: CALI Report ID: [id number] Reading Location: [place] [address] Recent Labs: Recent Labs Lab Units 09/15/2152809/13/2183509/12/21526 WBC K/cumm 9.3 7.9 11.2* HEMOGLOBIN g/dL 12.8* 13.1 13.6 HEMATOCRIT % 39.2 40.3 42.0 PLATELETS K/cumm 319 281 302 Recent Labs Lab Units 09/15/2152809/13/2183509/12/21526 WBC K/cumm 9.3 7.9 11.2* HEMOGLOBIN g/dL 12.8* 13.1 13.6 HEMATOCRIT % 39.2 40.3 42.0 PLATELETS K/cumm 319 281 302 NEUTROS PCT % 71.3 76.0 77.6 LYMPHS PCT % 19.1 14.9 14.2 MONOS PCT % 7.6 7.5 6.2 EOS PCT % 1.2 0.9 1.3 Recent Labs Lab Units 09/15/21 1239 09/15/2152809/13/21 2134 09/13/21 0836 09/12/21 0820 09/12/21 0527 09/12/217 09/11/21 1300 SODIUM mmol/L -- 136 -- 135 -- 137 -- 138 POTASSIUM PLASMA mmol/L -- 3.8 -- 4.2 -- 3.9 -- 3.9 CHLORIDE mmol/L -- 99 -- 101 -- 103 -- 103 CO2 mmol/L -- 25 -- 24 -- 21* -- 23 BUN SERUM mg/dL -- 10 -- 10 -- 11 -- 12 CREATININE mg/dL -- 0.61* -- 0.63* -- 0.71* -- 0.64* AWM-MOI-QHUCATR mL/min/1.73 m2 -- 135 -- 134 -- 129 -- 133 GLUCOSE mg/dL -- 105 -- 122 -- 126 -- 131 POC GLUCOSE MONITOR mg/dL 84 -- < > -- < > -- < > -- CALCIUM mg/dL -- 9.3 -- 9.1 -- 8.7 -- 9.3 ALBUMIN g/dL -- 3.9 -- -- -- 3.7 -- 4.3 PHOSPHORUS PLASMA mg/dL -- -- -- -- -- 4.0 -- -- < > = values in this interval not displayed. Recent Labs Lab Units 09/15/21 1239 09/15/21 0529 09/15/21 0332 09/13/21 2134 09/13/21 0836 09/12/21 0820 09/12/21 0527 09/12/2122609/11/21 1300 SODIUM mmol/L -- 136 -- -- 135 -- 137 -- 138 POTASSIUM PLASMA mmol/L -- 3.8 -- -- 4.2 -- 3.9 -- 3.9 CHLORIDE mmol/L -- 99 -- -- 101 -- 103 -- 103 CO2 mmol/L -- 25 -- -- 24 -- 21* -- 23 ANIONGAP mmol/L -- 12 -- -- 10 -- 13 -- 12 GLUCOSE mg/dL -- 105 -- -- 122 -- 126 -- 131 POC GLUCOSE MONITOR mg/dL 84 -- 97 < > -- < > -- < > -- BUN SERUM mg/dL -- 10 -- -- 10 -- 11 -- 12 CREATININE mg/dL -- 0.61* -- -- 0.63* -- 0.71* -- 0.64* CALCIUM mg/dL -- 9.3 -- -- 9.1 -- 8.7 -- 9.3 ALBUMIN g/dL -- 3.9 -- -- -- -- 3.7 -- 4.3 ALK PHOS Units/L -- 81 -- -- -- -- 92 -- 110 ALT Units/L -- 46 -- -- -- -- 60* -- 71* AST Units/L -- 25 -- -- -- -- 20 -- 30 BILIRUBIN TOTAL mg/dL -- 0.9 -- -- -- -- 0.8 -- 0.7 < > = values in this interval not displayed. Recent Labs Lab Units 09/15/21 0529 09/12/21 0527 09/11/21 1300 ALK PHOS Units/L 81 92 110 BILIRUBIN TOTAL mg/dL 0.9 0.8 0.7 TOTAL PROTEIN g/dL 7.2 6.9 7.7 ALT Units/L 46 60* 71* AST Units/L 25 20 30 Recent Labs Lab Units 09/12/21 0527 MAGNESIUM mg/dL 2.0 Lab Results Component Value Date GLUCOSE 84 09/15/2021 GLUCOSE 105 09/15/2021 GLUCOSE 97 09/15/2021 Implant: Implants No active implants to display in this view. General Precautions (If Blank, None Found): Isolation Status: No active isolations Nutritional Status and in-house recommendations: Dietary Orders (From admission, onward) Start Ordered 09/14/21 2100 Bedtime snack At bedtime Comments: If bedtime BG is less than 100mg/dl, give patient a 15 gram carbohydrate snack. 09/14/21201709/14/21 0001 NPO Diet Sips with meds Diet effective midnight Question: NPO except: Answer: Sips with meds 09/13/21 1642 Anticoagulation Indication: INR: No results found for requested labs within last 720 hours. Warfarin Administrations (last 168 hours) None Oxygen Status: O2 Therapy for the past 12 hrs: O2 Therapy O2 Flow Rate (L/min) 09/15/21 0400 Supplemental oxygen 3 L/min Wound Care Instructions Active LDAs (If Blank, None Found): Peripheral IV 09/13/21 22 G Anterior;Left;Upper Arm (Active) Placement Date/Time: 09/13/21 183 Type: Angiocath Size (Gauge): 22 G Location Orientation: Anterior;Left;Upper Location: Arm Insertion attempts: 1 Patient Tolerance: Tolerated well Patient Emergency Contact: Primary Emergency Contact: Uche Barlow Immunization Status at Discharge Immunization History Administered Date(s) Administered ??? Pfizer SARS-CoV-2 Vaccination (12+ yrs) PURPLE 08/28/2020, 09/20/2020 Desmond Ro DO documented in this encounter Medications at Time [...] 09/15/2021 3 documented as of this encounter Ordered Prescriptions Prescription Sig Dispense Quantity Refills Last Filled Start Date End Date loratadine (CLARITIN) 10 mg tabletIndications: liquid gel Take 1 tablet (10 mg total) by mouth daily as needed for allergies 09/14/2021 lisinopriL (PRINIVIL,ZESTRIL) 20 mg tablet Take 1 tablet (20 mg total) by mouth daily 30 tablet 11 09/15/2021 sodium chloride (OCEAN) 0.65 % nasal spray Administer 1 spray into each nostril as needed for congestion 15 mL 09/15/2021 3 documented in this encounter Discharge Disposition Disposition Code Departure Means Destination Discharge to home or [facility] care [facility] documented in this encounter Progress Notes * Jayce Yousif MD - 09/15/2021 10:15 AM CDT General Surgery Daily Progress Subjective F/u abd pain Feels slightly better with NG No flatus, no BM Awaiting transfer to [facility] Current Facility-Administered Medications: ??? acetaminophen (TYLENOL) tablet 650 mg, 650 mg, oral, Q4H PRN, Brenda Chicas NAUTICAL INSTRUMENT MECHANIC ? ? al & mag hydroxide ecgnbccriyk-mhrshomfinbhmei-llakcwbvz-nystatin (MAGIC MOUTHWASH) suspension 1-1-1-1, 15 mL, swish & swallow, Q4H PRN, Desmond Ro, ??? amLODIPine (NORVASC) tablet 10 mg, 10 mg, oral, Daily, Brenda Chicas NP, 10 mg at 09/15/21 0914 ??? dextrose oral liquid liquid 15 g, 15 g, oral, Q15 Min PRN OR dextrose (D10W) 10% bolus 250 mL, 250 mL, intravenous, Q15 Min PRN, Brenda Chicas NP ??? dextrose 5% and sodium chloride 0.9% infusion (premix), 100 mL/hr, intravenous, Continuous, rBenda Chicas NP, Last Rate: 100 mL/hr at 09/15/21 0729, 100 mL/hr at 09/15/21 0729 ??? dicyclomine (BENTYL) tablet 20 mg, 20 mg, oral, QID PRN, Desmond Ro, , 20 mg at 09/12/21 1435 ??? enoxaparin (LOVENOX) syringe 40 mg, 40 mg, subcutaneous, Daily-2100, Brenda Chicas NP, 40 mg at 09/14/212057 ??? glucagon injection 1 mg, 1 mg, intramuscular, Q30 Min PRN, Brenda Chicas NP ??? HYDROmorphone (DILAUDID) injection 2 mg, 2 mg, intravenous, Q2H PRN, Brenda Chicas NP, 2 mg at 09/15/21 0921 ??? lisinopriL (PRINIVIL,ZESTRIL) tablet 20 mg, 20 mg, oral, Daily, Brenda Chicas NP, 20 mgat 09/15/2113 ??? loratadine (CLARITIN) tablet 10 mg, 10 mg, oral, Daily PRN, Desmond Ro DO ??? montelukast (SINGULAIR) tablet 10 mg, 10 mg, oral, Nightly, Brenda Chicas NP, 10 mg at 09/13/212126 ??? ondansetron (ZOFRAN) injection 4 mg, 4 mg, intravenous, Q4H PRN, Desmond Ro DO, 4 mg at 09/14/21 0720 ??? ondansetron ODT (ZOFRAN-ODT) disintegrating tablet 4 mg, 4 mg, oral, Q4H PRN, Desmond Ro, DO ??? oxyCODONE-acetaminophen (PERCOCET) 5-325 mg per tablet 2 tablet, 2 tablet, oral, Q4H PRN, Desmond Ro, DO ??? pantoprazole DR (PROTONIX) extended release tablet 40 mg, 40 mg, oral, Daily, Brenda Chicas, SHERRY, 40 mg at 09/15/21 0913 ??? phenoL (CHLORASEPTIC) 1.4 % oral spray 1 spray, 1 spray, mouth/throat, Q4H PRN, Desmond Ro, DO ??? pravastatin (PRAVACHOL) tablet 40 mg, 40 mg, oral, Nightly, Brenda Chicas, SHERRY, 40 mg at 09/13/212126 ??? prochlorperazine (COMPAZINE) injection 5 mg, 5 mg, intravenous, Q6H PRN, Desmond Ro DO, 5 mg at 09/14/21 0228 ??? prochlorperazine (COMPAZINE) tablet 5 mg, 5 mg, oral, QID PRN, Desmond Ro, DO ??? sodium chloride (OCEAN) 0.65 % nasal spray 1 spray, 1 spray, each nostril, PRN, Desmond Ro, , 1 spray at 09/15/21 0921 ??? sodium chloride 0.9% flush 0.5-20 mL, 0.5-20 mL, intra-catheter, Q8H KARTHIK, Brenda Chicas NP, 5 mL at 09/15/21 0505 ??? sodium chloride 0.9% flush 0.5-20 mL, 0.5-20 mL, intra-catheter, PRN, Brenda Chicas, SHERRY Review of Systems Constitution: No headaches. Lungs: No SOB or cough. CV: No chest pain or palpitations. Abdomen: abd pain, + nausea Ex: No leg pain. All other systems reviewed and negative at this time Objective Vitals: BP 134/95 (BP Location: Left arm, Patient Position: Lying) Pulse 84 Temp 36.2 ??C (97.2 ??F) (Oral) Resp 18 Ht 180.3 cm (5' 11 ) Wt 115.1 kg (253 lb 11.2 oz) SpO2 97% BMI 35.38 kg/m?? Intake/Output Summary (Last 24 hours) at 09/15/2021 1015 Last data filed at 09/15/2021 0400 Gross per 24 hour Intake -- Output 1300 ml Net -1300 ml Physical Exam: Gen: A&O x3. NAD. Lungs: CTA bilateral. CV: RRR. Abdomen: Soft, mild distention, ttp in the epigastric region. Ext: No edema. Lab/Radiology/Diagnostic Review Recent Results (from the past 24 hour(s)) POCT glucose Collection Time: 09/14/21 8:01 PM Result Value Ref Range Glucose, POC 71 70 - 199 mg/dL POCT glucose Collection Time: 09/15/21 3:32 AM Result Value Ref Range Glucose, POC 97 70 - 199 mg/dL Comprehensive metabolic panel Collection Time: 09/15/21 5:29 AM Result Value Ref Range Sodium 136 135 - 145 mmol/L Potassium, pl 3.8 3.3 - 4.9 mmol/L Chloride 99 97 - 110 mmol/L CO2 25 22 - 32 mmol/L Anion gap 12 2 - 15 mmol/L BUN 10 8 - 25 mg/dL Creatinine 0.61 (L) 0.80 - 1.30 mg/dL Glucose 105 70 - 199 mg/dL Calcium 9.3 8.5 - 10.3 mg/dL Bilirubin, total 0.9 0.1 - 1.2 mg/dL Protein, pl 7.2 6.5 - 8.5 g/dL Albumin 3.9 3.5 - 5.0 g/dL Alk phos 81 40 - 130 Units/L ALT 46 7 - 55 Units/L AST 25 10 - 50 Units/L CBC with auto differential Collection Time: 09/15/21 5:29 AM Result Value Ref Range WBC 9.3 3.8 - 9.9 K/cumm Hgb 12.8 (L) 13.0 - 17.5 g/dL Hct 39.2 38.9 - 50.3 % Plt 319 150 - 400 K/cumm MPV 9.8 9.1 - 12.3 fL RBC 4.58 4.30 - 5.80 M/cumm MCV 85.6 81.3 - 96.4 fL MCH 27.9 27.1 - 33.3 pg MCHC 32.7 32.3 - 35.7 g/dL RDW CV 12.0 11.1 - 14.9 % RDW SD 37.2 35.7 - 48.1 fL NRBC abs 0.00 0.00 - 0.01 K/cumm Differential, auto Collection Time: 09/15/21 5:29 AM Result Value Ref Range Neutrophil abs 6.6 (H) 1.7 - 6.5 K/cumm Imm gran abs 0.1 0.0 - 0.1 K/cumm Lymphocyte abs 1.8 0.8 - 3.3 K/cumm Monocyte abs 0.7 0.2 - 0.8 K/cumm Eosinophil abs 0.1 0.0 - 0.5 K/cumm Basophil abs 0.0 0.0 - 0.1 K/cumm Neutrophil pct 71.3 % Imm gran pct 0.5 % Lymphocyte pct 19.1 % Monocyte pct 7.6 % Eosinophil pct 1.2 % Basophil pct 0.3 % eGFR Collection Time: 09/15/21 5:29 AM Result Value Ref Range eGFR 135 mL/min/1.73 m2 Assessment /Plan abd pain ? pSBO Cont NPO, NG LIWS, IVFs Stable to transfer * Maria L Mercedes RN - 09/14/2021 2:40 PM CDT CM Initial Discharge Planning Assessment Information Obtained From: Patient (09/14/211439) Admission Source: Transfer from [facility] Impression: c/o abd pain, nausea, vomiting; PSBO Plan Includes: General Surgery consulted, IVF, NPO, NG-Tube to LIS, pain management, antiemetics. Primary Source of Transportation: Does the patient need discharge transport arranged?: No (09/14/211439) Health Insurance Coverage: [employer] [place] Prescription Coverage: [facility] Pharmacy: [place], [place] Primary Care Provider: Pankaj Rosenberg MD -- Pt will make follow-up appointment. Prior to Admission: Primary Caregiver: Self Support System: Family members, Spouse/Significant Other Support system contact info (name, phone, availablity): Uche Barlow, father [phone]; iLzeth Barlow,mother [phone] Home Care Services: No Durable Medical Equipment: None (New CPAP ordered but on back order -- pt unable to recall providername) Living Arrangements: Spouse/significant other Type of Residence: Private residence Steps in home? : Yes, Outside of home Number of steps inside:: 15 steps (basement he does not have to access) Number of steps outside:: 4 steps (09/14/211439) Potential discharge needs include: none at this time Dialysis: n/a Behavioral Health Services: Behavioral Health Services: No (09/14/211439) Patient expects to be Discharged to: Private residence, (09/14/211439) Additional Information: CM met with pt at bedside to complete assessment for initial discharge planning. Verbal consent obtained to proceed with mother Lizeth & significant other Mary at bedside. Demographics verified per face sheet. His father is emergency contact. Pt lives with Mary & 4yr old child. 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 Pt's completed a sleep study & received order for a new CPAP but is on back-order -- pt unable to recall provider name. Goal is to return home with no new needs upon discharge. Pt informed [employer] insurance is out of network & he may be responsible for the inpatient hospitalbill. Informed pt that [employer] is in-network with [facility] facilities, ie. [facility], [facility], [facility], [facility], & also [facility]. Attending MD & General Surgery informed & state [facility] Pt/family agreeable to transfer to in-network facility. [facility] Access Line was provided to attending MD to initiate transfer process (P: [phone], [facility] [phone], [facility] [phone])/ However, after notification received from , CM called [facility] Access Line but was given instructions brenda different process. This was escalated to Press Breaker Christianne for follow-up. Patient's Identified Problem/Goal Problem: Ensure acute medical needs are met and that patient has a safe discharge plan. Goal: Secure a discharge plan that patient/family are agreeable with and ensure patient has continuum of care. Case management will follow for discharge planning and send referrals as needed. Goals include: To assure continuity of care, To maximize coping skills, To assure patient is in a safe environment and To assure access to community resources. MARLENE Cortez-BRYANT [facility] [phone] * Desmond Ro DO - 09/14/2021 11:15 AM CDT Hospitalist Progress Note Patient Information Name: Chuck Barlow Date of : 1995 (26 y.o.) Date of Service: 09/14/2021 at 7:44 PM Chief Complaint: Abdominal Pain Original History of Present Illness (HPI) and Brief Hospital Course Chuck Barlow is a 26 y.o. male admitted to [facility] on September 11, 2021 with a chief complaint of abdominal pain. Per H&P HPI: Patient presented to the ER at [facility] with complaints of mid abdominal pain rated at worsen 9/18. Patient stated pain began gradually 3 days agohe noted an associated fever. Pain continued to worsen, night pain was so severe patient was unable to sleep described as sharp and burning he came to the emergency room in the morning. Patient stated he has been followed by GI doctor Bob Oneal in [place] for other issues he has been referred to a surgeon for gallbladder removal related to polyps that have been increasing in his gallblad isak. Patient stated he had a colonoscopy and endoscopy done by Dr. Oneal approximately 2 weeks ago hehad a polyp removed which came back benign. Patient has been diagnosed with sleep apnea currently does not have a CPAP he is waiting to follow up with Pulmonary stated his appointment is in March.Patient is a diabetic currently on Januvia daily, he was placed on metformin and glipizide both caused abdominal pain and diarrhea. Patient had 2 diarrhea stools this morning denies nausea and vomiting he reports having chronic constipation alternating with diarrhea, current pain is something new he has not experienced before. He has had previous abdominal pain short episode which has resolved wit hout interventions over the past several months. Patient has not eaten today. 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 He was started on IVF and IV Pain control. General surgery was consulted, evaluated the patient, and reported: 26 y/o M w/ chronic abd pain admitted with abd pain I'm not convinced that he has any evidence of a bowel obstruction. His abd is soft and ND. He is also not nauseous or having emesis now. I've ordered a small bowel series to confirm that he does not have an obstruction. He does have a gallbladder polyp but there is no evidence of an acute infectious process. Based on his recent US results, this has increased in size slightly. He may have symptomatic gallbladder disease due to his polyp but this is not guaranteed especially since his HIDA scan was unremarkable. he told me that the has an appointment with a general surgeon in [place] later in the week with respect to his GB polyp. I encouraged him to get another opinion to see if cholecystectomy may help him. He can be on a regular diet from a surgical standpoint. However, Small bowel follow through was positive for partial small bowel obstruction. The patient began vomiting bilious emesis on 09/13 HS. Nasogastric tube was placed to Low intermittent suction on 09/14. At this time, case management informed hospitalist staff that his insurance, [employer], is out of network for [facility] and [facility]. The patient was informed of this and transfer to an in-network facility was requested. Per Case Management Note: CM met with pt at bedside to complete assessment for initial discharge planning. Verbal consent obtained to proceed with mother Lizeth & significant other Mary at bedside. Demographics verified per face sheet. His father is emergency contact. Pt lives with Mary & 4yr old child. 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 Pt's completed a sleep study & received order for a new CPAP but is on back- order -- pt unable to recall provider name. Goal is to return home with no new needs upon discharge. Pt informed [employer] insurance is out of network & he may beresponsible for the inpatient hospital bill. Informed pt that [facility] is in- network with [facility] facilities, ie. [facility], [facility], [facility], [facility], & also [facility]. Attending MD & General Surgeryinformed & state pt is stable for transfer. Pt/family agreeable to transfer to in-network facility. [facility] Access Line was provided to attending MD to initiate transfer process (P: [phone], [facility] [phone], [facility] [phone])/ However, after notification received from MD, CM called [facility] Access Line but was given instructions on a different process. This was escalated to CM Press Breaker Christianne for follow-up. This occurred as above. As the hospitalist, I (Desmond Ro) contacted the transfer center and placed the request. They insisted that the patient could not be contacted until case management at our facility contacted and confirmed with case management at their facilities that they indeed accepted the insurance. This was further escalated as this barrier was not overcome. I was contacted around 7pm on 09/14/2021 by the patient's nurse whom stated that the family, specifically the patient's uncle, had been in communication with the division chief at [facility] and that the patient would be accepted and have a bed there. I contacted the transfer center again. They reported that [facility] did n ot have any beds and it would be a 3-5 day wait. They do have beds at [facility] and would start the transfer process there. I asked them to continue that process and I would contact the family to ask for their consent or redirection. They reported that they had assurances that [facility] would beable to take them, to place the transfer, the patient would be in the bed pool, and they would select him from the pool and get him a bed. I once again called the transfer center to relay this information. They again stated that they did not see how this was possible as there were no beds. I had been given the direct contact number for the [employer] and called it to add them to the call and attempt to sort this out. There was no answer and a message was left detailing the situation. The transfer center reported that a new person would be taking over the case as the one I had been speaking with was going off shift. I asked if they could provide me with the stone decorator case management or social work number so that I may relay it to the stone decorator case management rn or social scientist at [facility]. I did not hear back on 09/14. Today's HPI The patient was seen and examined at bedside. He reports that he's doing fairly well at this time but had a rough night. He reports that his abdominal pain is controlled while he gets the medication.He reports that he began having intermittent abdominal distention and had several episodes of bilious emesis. He would like to know what our next steps are. His fiance and mother are at bedside. We had a lengthy discussion about his current condition, treatment plan, and likely course of treatment and prognosis. They had the opportunity to ask questions, and all questions were answered to their satisfaction. See Brief Hospital Course for transfer planning and process. I spoke with nursing staff at bedside. We discussed the case in detail. Past Medical, Family, and Social History Obtained on 09/11/2021 11:36 PM and is located in the History and Physical Note. Review of Systems See above. All 7 systems were reviewed and are otherwise negative. Physical Exam Vitals: 09/13/21 1600 09/13/21 2000 09/14/21 0000 09/14/21 0457 BP: 124/72 146/93 146/95 BP Location: Left arm Left arm Left arm Patient Position: HOB 30 degrees HOB 30 degrees HOB 30 degrees Pulse: 90 78 88 85 Resp: 18 18 18 Temp: 36.7 ??C (98.1 ??F) 36.6 ??C (97.8 ??F) 36.7 ??C (98 ??F) TempSrc: Oral Oral Oral SpO2: 100% 100% 99% Weight: Height: Constitutional: Awake, alert, of sound mind. Non-distressed on room air while supine. Non-toxic appearing. Well-nourished, overweight. Eyes: EOMI. Conjunctiva are normal. ENMT: Face, External ears, and Nose are normal appearing. Hearing is intact bilaterally. Oropharyngeal exam shows moist mucous membranes. Dentition is age-appropriate. Cardiovascular: Heart Rate and Rhythm Regular. No Murmur. No Jugular Venous Distention. Distal pulses are intact in the upper extremity. No edema in the lower extremities. Respiratory: Breath sounds are appropriate in all lung acevedo. No wheezing. No rhonchi. No rales. Gastrointestinal: Soft. Mildly tender in the periumbilical area without guarding. Non-distended. Nomass or organomegaly. May have a small, early stage hernia to the right of the umbilicus vs. peritoneal fold. Positive scars above, below, and to the 7 o'clock of the umbilicus at baseline. Skin: Warm, Dry. Capillary refill is brisk. Musculoskeletal: No inflamed joints. Bilateral Upper Extremity Phocomelia present. Neurological: No gross neurological deficits appreciated. Psychiatric: Mood and affect are appropriate. Pertinent Diagnostics: I have reviewed the new laboratory, radiographic, and other diagnostic studyreports. Recent Results (from the past 24 hour(s)) POCT glucose Collection Time: 09/13/21 9:34 PM Result Value Ref Range Glucose, POC 102 70 - 199 mg/dL ASSESSMENT AND PLAN: All conditions are present on admission unless otherwise noted. Abdominal Pain, Bilious Vomiting, and Constipation due to Partial Small Bowel Obstruction - Worsening Not improving as expected. I appreciate general surgery consultation and recommendations. Will continue IV fluids, regular diet. Awaiting small-bowel follow-through result. If this is negative, will obtain CTA A/P, consider HIDAscan and GI consultation. Skeletal/neurological exam is normal, skin is normal. Will continue IV medication p.r.n.. 09/14: NPO, NG Tube to LIS, Confirmation X ray, continue conservative measures for a few more days before considering Ex Lap. Chronic Irritable Bowel Syndrome secondary to Severe Uncontrolled Obstructive Sleep Apnea At baseline. Counseled extensively on September 12. Sleep study has been performed. Awaiting a mask fitting for the CPAP. There is currently a recall that is holding them up per the patient. Gastroesophageal Reflux Disease without Esophagitis Currently symptomatic. Will advance current medication regimen. Will monitor clinical condition. Essential Hypertension Currently normotensive. Will continue medications as appropriate. Will monitor vital signs per floor protocol. Dyslipidemia Will continue home statin medication. Will defer monitoring lipid profile to outpatient management. Diabetes Mellitus Type 2 without Long-Term Use of Insulin without complication Currently normoglycemic. No hypoglycemic episodes. Currently on SSI. Takes Januvia at home. DC SSI and POCT checks, A1c is only 5.6. Currently on a consistent carb diet. Oral intake has been low. Will continue to monitor glucose as appropriate. Allergic Rhinitis Controlled. Likely also due to uncontrolled GERD from KARRIE. Gallbladder Polyps Outpatient cholecystectomy. 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 Obesity At baseline. See above. Discharge Disposition: Unclear time to unclear location. I spent 80 minutes in the care of this patient today, over 50% of which was in counseling and coordination of care. This time included: See HPI and Hospital Course. Voice recognition software ([employer]) was used to complete this document. Grease Rack Worker variances and typographical errors may occur despite proofreading. Desmond Ro DO, DEION/RONEL Hospitalist in the [facility] Medical Group [facility] 09/14/2021 7:44 PM * Denice Choe NP - 09/14/2021 10:45 AM CDT [facility] Progress Note Follow up abdominal pain, nausea, vomiting Interval History No acute events. Patient states he continues to have a lot of abdominal pain. He is been vomiting large amount of green bile. He denies passing flatus, no BM. Vitals: Temp (24hrs), Av.7 ??C (98 ??F), Min:36.6 ??C (97.8 ??F), Max:36.7 ??C (98.1 ??F) Most Recent : Vitals: 09/13/21 1600 09/13/21 2000 09/14/21 0000 09/14/21 0457 BP: 124/72 146/93 146/95 BP Location: Left arm Left arm Left arm Patient Position: HOB 30 degrees HOB 30 degrees HOB 30 degrees Pulse: 90 78 88 85 Resp: 18 18 18 Temp: 36.7 ??C (98.1 ??F) 36.6 ??C (97.8 ??F) 36.7 ??C (98 ??F) TempSrc: Oral Oral Oral SpO2: 100% 100% 99% Weight: Height: I/O last 2 completed shifts: In: 480 [P.O.:480] Out: 1225 [Urine:1225] No intake/output data recorded. OBJECTIVE: Physical Exam: GENERAL: Well-appearing individual in no acute distress. NEURO/PSYCH: Alert and oriented x3, mood and affect appropriate. ABDOMEN: Soft, RUQ and epigastric tenderness to palpation, mild distention. no masses. Lab/Radiology/Diagnostic Review: Recent Results (from the past 24 hour(s)) POCT glucose Collection Time: 09/13/21 9:34 PM Result Value Ref Range Glucose, POC 102 70 - 199 mg/dL ASSESSMENT/PLAN: Principal Problem: SBO (small bowel obstruction) ([facility]) ([facility]) Active Problems: Allergic rhinitis Primary hypertension Pure hypercholesterolemia Gastroesophageal reflux disease without esophagitis KARRIE (obstructive sleep apnea) Controlled type 2 diabetes mellitus without complication, without long-term current use of insulin ([facility]) ([facility]) 1. 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 - NPO - IVFs - Pain control - Antiemetics - Notified by case management, patient insurance is [id number]. Patient is stable for transfer. [facility] [phone] - NGT to [facility] Cosigned by Jayce Yousif MD at 09/14/2021 12:49 PM CDT * Desmond Ro DO - 09/13/2021 4:43 PM CDT Hospitalist Progress Note Patient Information Name: Chuck Barlow Date of : 1995 (26 y.o.) Date of Service: 09/13/2021 at 4:43 PM Chief Complaint: Abdominal Pain Original History of Present Illness (HPI) and Brief Hospital Course Chuck Barlow is a 26 y.o. male admitted to [facility] on September 11, 2021 with a chief complaint of abdominal pain. Per H&P HPI: Patient presented to the ER at [facility] with complaints of mid abdominal pain rated at worsen 9/18. Patient stated pain began gradually 3 days agohe noted an associated fever. Pain continued to worsen, night pain was so severe patient was unable to sleep described as sharp and burning he came to the emergency room in the morning. Patient stated he has been followed by GI doctor Bob Oneal in [place] for other issues he has been referred to a surgeon for gallbladder removal related to polyps that have been increasing in his gallblad isak. Patient stated he had a colonoscopy and endoscopy done by Dr. Oneal approximately 2 weeks ago hehad a polyp removed which came back benign. Patient has been diagnosed with sleep apnea currently does not have a CPAP he is waiting to follow up with Pulmonary stated his appointment is in March.Patient is a diabetic currently on Januvia daily, he was placed on metformin and glipizide both caused abdominal pain and diarrhea. Patient had 2 diarrhea stools this morning denies nausea and vomiting he reports having chronic constipation alternating with diarrhea, current pain is something new he has not experienced before. He has had previous abdominal pain short episode which has resolved wit hout interventions over the past several months. Patient has not eaten today. 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 He was started on IVF and IV Pain control. General surgery was consulted, evaluated the patient, and reported: 26 y/o M w/ chronic abd pain admitted with abd pain I'm not convinced that he has any evidence of a bowel obstruction. His abd is soft and ND. He is also not nauseous or having emesis now. I've ordered a small bowel series to confirm that he does not have an obstruction. He does have a gallbladder polyp but there is no evidence of an acute infectious process. Based on his recent US results, this has increased in size slightly. He may have symptomatic gallbladder disease due to his polyp but this is not guaranteed especially since his HIDA scan was unremarkable. he told me that the has an appointment with a general surgeon in [place] later in the week with respect to his GB polyp. I encouraged him to get another opinion to see if cholecystectomy may help him. He can be on a regular diet from a surgical standpoint. Today's HPI The patient was seen and examined at bedside. He reports that he's doing fair. He reports that he had a rough night. He had difficulty with the CPAP where it kept beeping loudly enough to wake him upthe moment he fell asleep, and even when it wasn't his oxygen meter was going off. He also reports that he tried to go without the dilaudid from 12am-6am and was in horrible pain. He felt a very hardarea in his upper abdomen that felt like it wasn't there before; it is now back to his normal. He has no other new or worsening symptoms. His family is at bedside and would like to know what the planis and how his test results are. I updated him on his condition(s), workup(s), treatment(s), and discharge plan. All of his questions were answered to his satisfaction. I spoke with nursing staff at bedside. We discussed the case in detail. Past Medical, Family, and Social History Obtained on 09/11/2021 11:36 PM and is located in the History and Physical Note. Review of Systems See above. All 7 systems were reviewed and are otherwise negative. Physical Exam Vitals: 09/13/21 0413 09/13/21 0700 09/13/21 0800 09/13/21 1200 BP: 122/77 BP Location: Left arm Patient Position: Lying Pulse: 86 75 92 Resp: 21 Temp: 36.7 ??C (98.1 ??F) TempSrc: Oral SpO2: 98% 99% Weight: Height: Constitutional: Awake, alert, of sound mind. Non-distressed on room air while supine. Non-toxic appearing. Well-nourished, overweight. Eyes: EOMI. Conjunctiva are normal. ENMT: Face, External ears, and Nose are normal appearing. Hearing is intact bilaterally. Oropharyngeal exam shows moist mucous membranes. Dentition is age-appropriate. Cardiovascular: Heart Rate and Rhythm Regular. No Murmur. No Jugular Venous Distention. Distal pulses are intact in the upper extremity. No edema in the lower extremities. Respiratory: Breath sounds are appropriate in all lung acevedo. No wheezing. No rhonchi. No rales. Gastrointestinal: Soft. Non-tender without guarding. Non-distended. No mass or organomegaly. May have a small, early stage hernia to the right of the umbilicus vs. peritoneal fold. Positive scars above, below, and to the 7 o'clock of the umbilicus at baseline. Some tenderness to the superior abdominal rectus muscles with spasms. No other pain source identified. Skin: Warm, Dry. Capillary refill is brisk. Musculoskeletal: No inflamed joints. Bilateral Upper Extremity Phocomelia present. Neurological: No gross neurological deficits appreciated. Psychiatric: Mood and affect are appropriate. Pertinent Diagnostics: I have reviewed the new laboratory, radiographic, and other diagnostic studyreports. Recent Results (from the past 24 hour(s)) POCT glucose Collection Time: 09/12/21 5:09 PM Result Value Ref Range Glucose, POC 96 70 - 199 mg/dL CBC with auto differential Collection Time: 09/13/21 8:36 AM Result Value Ref Range WBC 7.9 3.8 - 9.9 K/cumm Hgb 13.1 13.0 - 17.5 g/dL Hct 40.3 38.9 - 50.3 % Plt 281 150 - 400 K/cumm MPV 10.1 9.1 - 12.3 fL RBC 4.53 4.30 - 5.80 M/cumm MCV 89.0 81.3 - 96.4 fL MCH 28.9 27.1 - 33.3 pg MCHC 32.5 32.3 - 35.7 g/dL RDW CV 12.1 11.1 - 14.9 % RDW SD 39.7 35.7 - 48.1 fL NRBC abs 0.00 0.00 - 0.01 K/cumm Basic metabolic panel Collection Time: 09/13/21 8:36 AM Result Value Ref Range Sodium 135 135 - 145 mmol/L Potassium, pl 4.2 3.3 - 4.9 mmol/L Chloride 101 97 - 110 mmol/L CO2 24 22 - 32 mmol/L Anion gap 10 2 - 15 mmol/L BUN 10 8 - 25 mg/dL Creatinine 0.63 (L) 0.80 - 1.30 mg/dL Glucose 122 70 - 199 mg/dL Calcium 9.1 8.5 - 10.3 mg/dL Differential, auto Collection Time: 09/13/21 8:36 AM Result Value Ref Range Neutrophil abs 6.0 1.7 - 6.5 K/cumm Imm gran abs 0.0 0.0 - 0.1 K/cumm Lymphocyte abs 1.2 0.8 - 3.3 K/cumm Monocyte abs 0.6 0.2 - 0.8 K/cumm Eosinophil abs 0.1 0.0 - 0.5 K/cumm Basophil abs 0.0 0.0 - 0.1 K/cumm Neutrophil pct 76.0 % Imm gran pct 0.4 % Lymphocyte pct 14.9 % Monocyte pct 7.5 % Eosinophil pct 0.9 % Basophil pct 0.3 % eGFR Collection Time: 09/13/21 8:36 AM Result Value Ref Range eGFR 134 mL/min/1.73 m2 ASSESSMENT AND PLAN: All conditions are present on admission unless otherwise noted. Abdominal Pain and Constipation of Unclear Etiology Not improving as expected. I appreciate general surgery consultation and recommendations. Will continue IV fluids, regular diet. Awaiting small-bowel follow-through result. If this is negative, will obtain CTA A/P, consider HIDAscan and GI consultation. Skeletal/neurological exam is normal, skin is normal. Will continue IV medication p.r.n.. Chronic Irritable Bowel Syndrome secondary to Severe Uncontrolled Obstructive Sleep Apnea At baseline. Counseled extensively on September 12. Sleep study has been performed. Awaiting a mask fitting for the CPAP. There is currently a recall that is holding them up per the patient. Gastroesophageal Reflux Disease without Esophagitis Currently symptomatic. Will advance current medication regimen. Will monitor clinical condition. Essential Hypertension Currently normotensive. Will continue medications as appropriate. Will monitor vital signs per floor protocol. Dyslipidemia Will continue home statin medication. Will defer monitoring lipid profile to outpatient management. Diabetes Mellitus Type 2 without Long-Term Use of Insulin without complication Currently normoglycemic. No hypoglycemic episodes. Currently on SSI. Takes Januvia at home. DC SSI and POCT checks, A1c is only 5.6. Currently on a consistent carb diet. Oral intake has been low. Will continue to monitor glucose as appropriate. Allergic Rhinitis Controlled. Likely also due to uncontrolled GERD from [place]. Gallbladder Polyps Outpatient cholecystectomy. 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 Obesity At baseline. See above. Discharge Disposition: Likely 2-3 days to home. MDM: high Voice recognition software ([employer] Fluency Direct) was used to complete this document. Grease Rack Worker variances and typographical errors may occur despite proofreading. Desmond Ro DO, FM/NMM Hospitalist in the [facility] Medical Group [facility] 09/13/2021 4:43 PM * Jayce Yousif MD - 09/13/2021 2:10 PM CDT General Surgery Daily Progress Subjective F/u on abd pain Had severe pain again in the AM More nausea Undergoing SBFT today No flatus, no BM Current Facility-Administered Medications: ??? acetaminophen (TYLENOL) tablet 650 mg, 650 mg, oral, Q4H PRN, Brenda Chicas, NAUTICAL INSTRUMENT MECHANIC ??? amLODIPine (NORVASC) tablet 10 mg, 10 mg, oral, Daily, Brenda Chicas, NAUTICAL INSTRUMENT MECHANIC, 10 mg at 09/13/21 0848 ??? dicyclomine (BENTYL) tablet 20 mg, 20 mg, oral, QID PRN, Desmond Ro DO, 20 mg at 09/12/21 1435 ??? enoxaparin (LOVENOX) syringe 40 mg, 40 mg, subcutaneous, Daily-2100, Brenda Chicas, NAUTICAL INSTRUMENT MECHANIC, 40 mg at 09/12/212134 ??? HYDROmorphone (DILAUDID) injection 2 mg, 2 mg, intravenous, Q2H PRN, Brenda Chicas, NAUTICAL INSTRUMENT MECHANIC, 2 mg at 09/13/21 1409 ??? lisinopriL (PRINIVIL,ZESTRIL) tablet 20 mg, 20 mg, oral, Daily, Brenda Chicas, NAUTICAL INSTRUMENT MECHANIC, 20 mgat 09/13/21 0848 ??? loratadine (CLARITIN) tablet 10 mg, 10 mg, oral, Daily, Desmond Ro DO ??? montelukast (SINGULAIR) tablet 10 mg, 10 mg, oral, Nightly, Brenda Chicas, NAUTICAL INSTRUMENT MECHANIC, 10 mg at 04/30/22 2135 ??? ondansetron (ZOFRAN) injection 4 mg, 4 mg, intravenous, Q4H PRN, Desmond Ro, DO ??? ondansetron ODT (ZOFRAN-ODT) disintegrating tablet 4 mg, 4 mg, oral, Q4H PRN, Desmond Ro, DO ??? oxyCODONE-acetaminophen (PERCOCET) 5-325 mg per tablet 2 tablet, 2 tablet, oral, Q4H PRN, Desmond Ro, DO ??? pantoprazole DR (PROTONIX) extended release tablet 40 mg, 40 mg, oral, Daily, MarianneG. Aviva, NAUTICAL INSTRUMENT MECHANIC, 40 mg at 09/13/21 0848 ??? pravastatin (PRAVACHOL) tablet 40 mg, 40 mg, oral, Nightly, Brenda Chicas, NAUTICAL INSTRUMENT MECHANIC, 40 mg at 09/12/212134 ??? prochlorperazine (COMPAZINE) injection 5 mg, 5 mg, intravenous, Q6H PRN, Desmond Ro, DO, 5 mg at 09/12/21 1924 ??? prochlorperazine (COMPAZINE) tablet 5 mg, 5 mg, oral, QID PRN, Desmond Ro, DO ??? sodium chloride 0.9% flush 0.5-20 mL, 0.5-20 mL, intra-catheter, Q8H KARTHIK, Brenda Chicas,NAUTICAL INSTRUMENT MECHANIC, 10 mL at 09/12/212135 ??? sodium chloride 0.9% flush 0.5-20 mL, 0.5-20 mL, intra-catheter, PRN, Brenda Chicas, NAUTICAL INSTRUMENT MECHANIC ??? sodium chloride 0.9% infusion, 100 mL/hr, intravenous, Continuous, Brenda Chicas, SHERRY, Last Rate: 100 mL/hr at 09/13/21 1209, 100 mL/hr at 09/13/21 1209 Review of Systems Constitution: No headaches. Lungs: No SOB or cough. CV: No chest pain or palpitations. Abdomen: + nausea/ pain Ex: No leg pain. All other systems reviewed and negative at this time Objective Vitals: BP 122/77 (BP Location: Left arm, Patient Position: Lying) Pulse 92 Temp 36.7 ??C (98.1 ??F) (Oral) Resp 21 Ht 180.3 cm (5' 11 ) Wt 115.1 kg (253 lb 11.2 oz) SpO2 99% BMI 35.38 kg/m?? Intake/Output Summary (Last 24 hours) at 09/13/2021 1410 Last data filed at 09/13/2021 1024 Gross per 24 hour Intake 240 ml Output 1700 ml Net -1460 ml Physical Exam: Gen: A&O x3. NAD. Lungs: CTA bilateral. CV: RRR. Abdomen: Soft, mild distention, epigastric ttp Ext: No edema. Lab/Radiology/Diagnostic Review Recent Results (from the past 24 hour(s)) POCT glucose Collection Time: 09/12/21 5:09 PM Result Value Ref Range Glucose, POC 96 70 - 199 mg/dL CBC with auto differential Collection Time: 09/13/21 8:36 AM Result Value Ref Range WBC 7.9 3.8 - 9.9 K/cumm Hgb 13.1 13.0 - 17.5 g/dL Hct 40.3 38.9 - 50.3 % Plt 281 150 - 400 K/cumm MPV 10.1 9.1 - 12.3 fL RBC 4.53 4.30 - 5.80 M/cumm MCV 89.0 81.3 - 96.4 fL MCH 28.9 27.1 - 33.3 pg MCHC 32.5 32.3 - 35.7 g/dL RDW CV 12.1 11.1 - 14.9 % RDW SD 39.7 35.7 - 48.1 fL NRBC abs 0.00 0.00 - 0.01 K/cumm Basic metabolic panel Collection Time: 09/13/21 8:36 AM Result Value Ref Range Sodium 135 135 - 145 mmol/L Potassium, pl 4.2 3.3 - 4.9 mmol/L Chloride 101 97 - 110 mmol/L CO2 24 22 - 32 mmol/L Anion gap 10 2 - 15 mmol/L BUN 10 8 - 25 mg/dL Creatinine 0.63 (L) 0.80 - 1.30 mg/dL Glucose 122 70 - 199 mg/dL Calcium 9.1 8.5 - 10.3 mg/dL Differential, auto Collection Time: 09/13/21 8:36 AM Result Value Ref Range Neutrophil abs 6.0 1.7 - 6.5 K/cumm Imm gran abs 0.0 0.0 - 0.1 K/cumm Lymphocyte abs 1.2 0.8 - 3.3 K/cumm Monocyte abs 0.6 0.2 - 0.8 K/cumm Eosinophil abs 0.1 0.0 - 0.5 K/cumm Basophil abs 0.0 0.0 - 0.1 K/cumm Neutrophil pct 76.0 % Imm gran pct 0.4 % Lymphocyte pct 14.9 % Monocyte pct 7.5 % Eosinophil pct 0.9 % Basophil pct 0.3 % eGFR Collection Time: 09/13/21 8:36 AM Result Value Ref Range eGFR 134 mL/min/1.73 m2 Assessment /Plan abd pain GB polyp SBFT pending Cont supportive care * Desmond Ro DO - 09/12/2021 1:30 PM CDT Hospitalist Progress Note Patient Information Name: Chuck Barlow Date of : 1995 (26 y.o.) Date of Service: 09/12/2021 at 5:23 PM Chief Complaint: Abdominal Pain Original History of Present Illness (HPI) and Brief Hospital Course Chuck Barlow is a 26 y.o. male admitted to [facility] on September 11, 2021 with a chief complaint of abdominal pain. Per H&P HPI: Patient presented to the ER at [facility] with complaints of mid abdominal pain rated at worsen 9/18. Patient stated pain began gradually 3 days agohe noted an associated fever. Pain continued to worsen, night pain was so severe patient was unable to sleep described as sharp and burning he came to the emergency room in the morning. Patient stated he has been followed by GI doctor Bob Oneal in [place] for other issues he has been referred to a surgeon for gallbladder removal related to polyps that have been increasing in his gallblad isak. Patient stated he had a colonoscopy and endoscopy done by Dr. Oneal approximately 2 weeks ago hehad a polyp removed which came back benign. Patient has been diagnosed with sleep apnea currently does not have a CPAP he is waiting to follow up with Pulmonary stated his appointment is in March.Patient is a diabetic currently on Januvia daily, he was placed on metformin and glipizide both caused abdominal pain and diarrhea. Patient had 2 diarrhea stools this morning denies nausea and vomiting he reports having chronic constipation alternating with diarrhea, current pain is something new he has not experienced before. He has had previous abdominal pain short episode which has resolved wit hout interventions over the past several months. Patient has not eaten today. PMHx s/f Gastroschisis as an s/p surgery, GERD, DM2 (a1c 5.6), HTN, HLD, Allergic Rhinitis, gallbladder polyps. He was started on IVF and IV Pain control. General surgery was consulted, evaluated the patient, and reported: 26 y/o M w/ chronic abd pain admitted with abd pain I'm not convinced that he has any evidence of a bowel obstruction. His abd is soft and ND. He is also not nauseous or having emesis now. I've ordered a small bowel series to confirm that he does not have an obstruction. He does have a gallbladder polyp but there is no evidence of an acute infectious process. Based on his recent US results, this has increased in size slightly. He may have symptomatic gallbladder disease due to his polyp but this is not guaranteed especially since his HIDA scan was unremarkable. he told me that the has an appointment with a general surgeon in [place] later in the week with respect to his GB polyp. I encouraged him to get another opinion to see if cholecystectomy may help him. He can be on a regular diet from a surgical standpoint. Today's HPI The patient was seen and examined at bedside. He reports he is doing fair. He reports he is still having intermittent severe, sharp stabbing mid abdominal pain which is periumbilical, does not radiate, has no inciting event, no exacerbating or relieving factors, several previous occurrences. He reports that this specific pain started a few days ago. He reiterates the history listed in the hospital course above. He reports that a few days ago he had 2 episodes of diarrhea, very small volume, andhas since not had a bowel movement. He reports he does pass flatus but that does not influence the abdominal pain. His family is at bedside. We had a lengthy discussion about his current condition, tr eatment plan, and likely course of treatment and prognosis. They had the opportunity to ask questions, and all questions were answered to their satisfaction. We also had a lengthy discussion regarding his chronic abdominal pain which is been going on for 1 and half years. He reports that he is having intermittent crampy migratory abdominal pain that will give him alternating episodes of constipation and diarrhea, often relieved by a small volume liquid explosive bowel movement, does not appear to have a lot of relieving factors, was exacerbated by metformin and glipizide, and is associated with fatigue, daytime somnolence, severe newly diagnosed uncontrolled sleep apnea, weight gain. I also discussed IBS and getting his sleep apnea treated at bedside. I spoke with nursing staff at bedside. We discussed the case in detail. Past Medical, Family, and Social History Obtained on 09/11/2021 11:36 PM and is located in the History and Physical Note. Review of Systems See above. All 7 systems were reviewed and are otherwise negative. Physical Exam Vitals: 09/12/21 0002 09/12/21 0720 09/12/21 1543 BP: 130/86 116/81 132/94 BP Location: Left arm Left arm Left arm Patient Position: Lying Lying Pulse: 94 92 92 Resp: 19 20 20 Temp: 36.5 ??C (97.7 ??F) 36.6 ??C (97.9 ??F) 36.7 ??C (98 ??F) TempSrc: Oral Oral Oral SpO2: 94% 98% 97% Weight: 115.1 kg (253 lb 11.2 oz) Height: 180.3 cm (5' 11 ) Constitutional: Awake, alert, of sound mind. Non-distressed on room air while supine. Non-toxic appearing. Well-nourished, overweight. Eyes: EOMI. Conjunctiva are normal. ENMT: Face, External ears, and Nose are normal appearing. Hearing is intact bilaterally. No pathologic abnormality of the nasal mucosa, septum, or turbinates. Oropharyngeal examination shows moist membranes and mild hyperemia in the posterior oropharynx. Dentition is age-appropriate. Cardiovascular: Heart Rate and Rhythm Regular. No Murmur. No Jugular Venous Distention. Distal pulses are intact in the upper extremity. No edema in the lower extremities. Respiratory: Breath sounds are appropriate in all lung acevedo. No wheezing. No rhonchi. No rales. Gastrointestinal: Soft. Non-tender without guarding. Non-distended. No mass or organomegaly. No hernia appreciated. Positive scar above the umbilicus. Skin: Warm, Dry. Capillary refill is brisk. Musculoskeletal: No inflamed joints. Bilateral Upper Extremity Phocomelia present. Neurological: No gross neurological deficits appreciated. Psychiatric: Mood and affect are appropriate. Pertinent Diagnostics: I have reviewed the new laboratory, radiographic, and other diagnostic studyreports. Recent Results (from the past 24 hour(s)) POCT glucose Collection Time: 09/12/21 2:27 AM Result Value Ref Range Glucose, POC 97 70 - 199 mg/dL Comprehensive metabolic panel Collection Time: 09/12/21 5:27 AM Result Value Ref Range Sodium 137 135 - 145 mmol/L Potassium, pl 3.9 3.3 - 4.9 mmol/L Chloride 103 97 - 110 mmol/L CO2 21 (L) 22 - 32 mmol/L Anion gap 13 2 - 15 mmol/L BUN 11 8 - 25 mg/dL Creatinine 0.71 (L) 0.80 - 1.30 mg/dL Glucose 126 70 - 199 mg/dL Calcium 8.7 8.5 - 10.3 mg/dL Bilirubin, total 0.8 0.1 - 1.2 mg/dL Protein, pl 6.9 6.5 - 8.5 g/dL Albumin 3.7 3.5 - 5.0 g/dL Alk phos 92 40 - 130 Units/L ALT 60 (H) 7 - 55 Units/L AST 20 10 - 50 Units/L Magnesium Collection Time: 09/12/21 5:27 AM Result Value Ref Range Magnesium 2.0 1.4 - 2.5 mg/dL Phosphorus Collection Time: 09/12/21 5:27 AM Result Value Ref Range Phosphorus, pl 4.0 2.3 - 4.5 mg/dL CBC with auto differential Collection Time: 09/12/21 5:27 AM Result Value Ref Range WBC 11.2 (H) 3.8 - 9.9 K/cumm Hgb 13.6 13.0 - 17.5 g/dL Hct 42.0 38.9 - 50.3 % Plt 302 150 - 400 K/cumm MPV 10.3 9.1 - 12.3 fL RBC 4.81 4.30 - 5.80 M/cumm MCV 87.3 81.3 - 96.4 fL MCH 28.3 27.1 - 33.3 pg MCHC 32.4 32.3 - 35.7 g/dL RDW CV 12.6 11.1 - 14.9 % RDW SD 40.6 35.7 - 48.1 fL NRBC abs 0.00 0.00 - 0.01 K/cumm Differential, auto Collection Time: 09/12/21 5:27 AM Result Value Ref Range Neutrophil abs 8.7 (H) 1.7 - 6.5 K/cumm Imm gran abs 0.1 0.0 - 0.1 K/cumm Lymphocyte abs 1.6 0.8 - 3.3 K/cumm Monocyte abs 0.7 0.2 - 0.8 K/cumm Eosinophil abs 0.2 0.0 - 0.5 K/cumm Basophil abs 0.0 0.0 - 0.1 K/cumm Neutrophil pct 77.6 % Imm gran pct 0.4 % Lymphocyte pct 14.2 % Monocyte pct 6.2 % Eosinophil pct 1.3 % Basophil pct 0.3 % eGFR Collection Time: 09/12/21 5:27 AM Result Value Ref Range eGFR 129 mL/min/1.73 m2 POCT glucose Collection Time: 09/12/21 8:20 AM Result Value Ref Range Glucose, POC 116 70 - 199 mg/dL ASSESSMENT AND PLAN: All conditions are present on admission unless otherwise noted. Abdominal Pain and Constipation likely secondary to Ileus I appreciate general surgery consultation and recommendations. Will continue IV fluids, will start regular diet. Awaiting small-bowel follow-through. Will continue IV medication p.r.n.. Chronic Irritable Bowel Syndrome secondary to Severe Uncontrolled Obstructive Sleep Apnea At baseline. Counseled extensively on September 12. Sleep study has been performed. Awaiting a mask fitting for the CPAP. There is currently a recall that is holding them up per the patient. Gastroesophageal Reflux Disease without Esophagitis Currently symptomatic. Will advance current medication regimen. Will monitor clinical condition. Essential Hypertension Currently normotensive. Will continue medications as appropriate. Will monitor vital signs per floor protocol. Dyslipidemia Will continue home statin medication. Will defer monitoring lipid profile to outpatient management. Diabetes Mellitus Type 2 without Long-Term Use of Insulin without complication Currently normoglycemic. No hypoglycemic episodes. Currently on SSI. Takes Januvia at home. DC SSI and POCT checks, A1c is only 5.6. Currently on a consistent carb diet. Oral intake has been low. Will continue to monitor glucose as appropriate. Allergic Rhinitis Controlled. Likely also due to uncontrolled GERD from [place]. Gallbladder Polyps Outpatient cholecystectomy. 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 Obesity At baseline. See above. Discharge Disposition: Likely 2-3 days to home. I spent 40 minutes in the care of this patient today, over 50% of which was in counseling and coordination of care. This time included: see HPI. Voice recognition software ([employer]) was used to complete this document. Grease Rack Worker variances and typographical errors may occur despite proofreading. Desmond Ro DO, DEION/RONEL Hospitalist in the [facility] Medical [facility] 09/12/2021 5:23 PM documented in this encounter H&P Notes * Brenda Chicas NAUTICAL INSTRUMENT MECHANIC - 09/11/2021 11:55 PM CDT History and Physical DATE OF SERVICE: 09/12/2021 2:07 AM Primary Care Physician: Pankaj Rosenberg MD [phone] SUBJECTIVE: Patient is a 26 y.o. male with a PMHx significant for allergic rhinitis, Gastroschisis,HTN and HLD Patient presents to ED with chief complaint of Abdominal pain. HPI: Patient presented to the ER at [facility] with complaints of mid abdominal pain rated at worsen 01/31. Patient stated pain began gradually 3 days ago he noted an associated fever. Pain continued to worsen, night pain was so severe patient was unable to sleep described as sharp and burning he came to the emergency room in the morning. Patient stated he has been followed by GI doctor Bob Oneal in [place] for other issues he has been referred to a surgeon for gallbladderremoval related to polyps that have been increasing in his gallbladder. Patient stated he had a colonoscopy and endoscopy done by Dr. Oneal approximately 2 weeks ago he had a polyp removed which came back benign. Patient has been diagnosed with sleep apnea currently does not have a CPAP he is waiting to follow up with Pulmonary stated his appointment is in March. Patient is a diabetic currentlyon Januvia daily, he was placed on metformin and glipizide both caused abdominal pain and diarrhea.Patient had 2 diarrhea stools this morning denies nausea and vomiting he reports having chronic constipation alternating with diarrhea, current pain is something new he has not experienced before. Aden had previous abdominal pain short episode which has resolved without interventions over the past several months. Patient has not eaten today. Past Medical History: Diagnosis Date ??? Allergic rhinitis ??? Gastroschisis ??? Hypertension ??? Sleep apnea Past Surgical History: Procedure Laterality Date ??? REPAIR GASTROSCHISIS / OMPHALOCELE 1994 [facility] ??? SEPTOPLASTY 2019 [facility] Medications Prior to Admission Medication Sig Dispense Refill Last Dose ??? amLODIPine (NORVASC) 5 mg tablet Take 5 mg by mouth 2 (two) times a day 09/11/2021 at Unknown time ??? atorvastatin (LIPITOR) 20 mg tablet Take by mouth nightly 09/11/2021 at Unknown time ??? lisinopriL (PRINIVIL,ZESTRIL) 20 mg tablet TK 1 T PO D 09/11/2021 at Unknown time ??? loratadine (CLARITIN) 10 mg tablet Take 10 mg by mouth daily 09/11/2021 at Unknown time ??? montelukast (SINGULAIR) 10 mg tablet Take 10 mg by mouth nightly 09/11/2021 at Unknown time ??? omeprazole (PriLOSEC) 40 mg capsule Take 40 mg by mouth daily 09/11/2021 at Unknown time ??? SITagliptin (JANUVIA) 25 mg tablet Take 25 mg by mouth daily 09/11/2021 at Unknown time No Known Allergies Social History Tobacco Use ??? Smoking status: Never Smoker ??? Smokeless tobacco: Former User Types: Snuff Substance Use Topics ??? Alcohol use: Yes Comment: SOCIAL Family History Problem Relation Age of Onset ??? Seizures Sister Mother - HTN Father- Review of Systems: Review of Systems Constitutional: Positive for appetite change. Negative for activity change, chills, diaphoresis, fatigue and fever. HENT: Negative for congestion, facial swelling, rhinorrhea, sinus pressure, sinus pain, sneezing, sore throat and trouble swallowing. Eyes: Negative for pain, discharge, redness, itching and visual disturbance. Respiratory: Negative for cough, choking, chest tightness, shortness of breath and wheezing. Cardiovascular: Negative for chest pain, palpitations and leg swelling. Gastrointestinal: Positive for abdominal pain, constipation and diarrhea. Negative for nausea and vomiting. Endocrine: Negative for cold intolerance and heat intolerance. Genitourinary: Negative for dysuria, flank pain, frequency, hematuria and urgency. Musculoskeletal: Negative for gait problem, neck pain and neck stiffness. Skin: Negative for color change. Neurological: Negative for dizziness, facial asymmetry, speech difficulty, weakness, light-headedness and headaches. Hematological: Negative for adenopathy. Does not bruise/bleed easily. Psychiatric/Behavioral: Negative for agitation, behavioral problems and confusion. OBJECTIVE: Vitals: Arrival Vitals Temp Pulse Resp BP SpO2 Temp src Heart Rate Source Patient Position BP Location FiO2 (%) 24hr Min/Max: Temp Min: 36.5 ??C (97.7 ??F) Max: 37.1 ??C (98.8 ??F) Pulse Min: 81 Max: 114 BP Min: 121/81 Max: 140/89 Resp Min: 16 Max: 23 SpO2 Min: 94 % Max: 100 % Most Recent : Vitals: 09/12/21 0002 BP: 130/86 BP Location: Left arm Pulse: 94 Resp: 19 Temp: 36.5 ??C (97.7 ??F) TempSrc: Oral SpO2: 94% Weight: 115.1 kg (253 lb 11.2 oz) Height: 180.3 cm (5' 11 ) No intake/output data recorded. I/O this shift: In: 1010 [I.V.:1010] Out: - Physical exam: Physical Exam Vitals and nursing note reviewed. Constitutional: General: He is not in acute distress. Appearance: Normal appearance. He is obese. He is ill-appearing. HENT: Head: Normocephalic and atraumatic. Right Ear: External ear normal. Left Ear: External ear normal. Nose: Nose normal. No congestion or rhinorrhea. Mouth/Throat: Mouth: Mucous membranes are moist. Pharynx: Oropharynx is clear. No oropharyngeal exudate or posterior oropharyngeal erythema. Eyes: General: Right eye: No discharge. Left eye: No discharge. Extraocular Movements: Extraocular movements intact. Conjunctiva/sclera: Conjunctivae normal. Pupils: Pupils are equal, round, and reactive to light. Cardiovascular: Rate and Rhythm: Normal rate and regular rhythm. Pulses: Normal pulses. Heart sounds: Normal heart sounds. Pulmonary: Effort: Pulmonary effort is normal. No respiratory distress. Breath sounds: Normal breath sounds. No wheezing. Abdominal: General: Bowel sounds are decreased. There is no distension. Palpations: Abdomen is soft. Tenderness: There is abdominal tenderness (mild mid abdominal ). Musculoskeletal: General: Deformity (right arm from ) present. No swelling or tenderness. Normal range of [...] and oriented to person, place, and time. Mental status is at baseline. Cranial Nerves: No cranial nerve deficit. Motor: No weakness. Psychiatric: Mood and Affect: Mood normal. Behavior: Behavior normal. Thought Content: Thought content normal. Judgment: Judgment normal. Lab/Radiology/Diagnostic Review: Laboratory review: Lab results in the last 24 hours: Recent Results (from the past 24 hour(s)) CBC with auto differential Collection Time: 09/11/21 1:00 PM Result Value Ref Range WBC 11.0 (H) 3.8 - 9.9 K/cumm Hgb 14.8 13.0 - 17.5 g/dL Hct 44.1 38.9 - 50.3 % Plt 334 150 - 400 K/cumm MPV 10.1 9.1 - 12.3 fL RBC 5.17 4.30 - 5.80 M/cumm MCV 85.3 81.3 - 96.4 fL MCH 28.6 27.1 - 33.3 pg MCHC 33.6 32.3 - 35.7 g/dL RDW CV 12.5 11.1 - 14.9 % RDW SD 38.8 35.7 - 48.1 fL NRBC abs 0.00 0.00 - 0.01 K/cumm Comprehensive metabolic panel Collection Time: 09/11/21 1:00 PM Result Value Ref Range Sodium 138 135 - 145 mmol/L Potassium, pl 3.9 3.3 - 4.9 mmol/L Chloride 103 97 - 110 mmol/L CO2 23 22 - 32 mmol/L Anion gap 12 2 - 15 mmol/L BUN 12 8 - 25 mg/dL Creatinine 0.64 (L) 0.80 - 1.30 mg/dL Glucose 131 70 - 199 mg/dL Calcium 9.3 8.5 - 10.3 mg/dL Bilirubin, total 0.7 0.1 - 1.2 mg/dL Protein, pl 7.7 6.5 - 8.5 g/dL Albumin 4.3 3.5 - 5.0 g/dL Alk phos 110 40 - 130 Units/L ALT 71 (H) 7 - 55 Units/L AST 30 10 - 50 Units/L Lipase Collection Time: 09/11/21 1:00 PM Result Value Ref Range Lipase 31 10 - 99 Units/L Differential, auto Collection Time: 09/11/21 1:00 PM Result Value Ref Range Neutrophil abs 8.5 (H) 1.7 - 6.5 K/cumm Imm gran abs 0.0 0.0 - 0.1 K/cumm Lymphocyte abs 1.5 0.8 - 3.3 K/cumm Monocyte abs 0.7 0.2 - 0.8 K/cumm Eosinophil abs 0.2 0.0 - 0.5 K/cumm Basophil abs 0.0 0.0 - 0.1 K/cumm Neutrophil pct 77.4 % Imm gran pct 0.4 % Lymphocyte pct 13.6 % Monocyte pct 6.7 % Eosinophil pct 1.6 % Basophil pct 0.3 % eGFR Collection Time: 09/11/21 1:00 PM Result Value Ref Range eGFR 133 mL/min/1.73 m2 Imaging review: I have reviewed the result(s) CT of abdomen and pelvis FINDINGS: LOWER CHEST: Visualized lung bases are clear. ?? LIVER: Liver is normal in size. No definite liver lesion is seen. ?? GALLBLADDER: Partially distended. ?? BILE DUCTS: Biliary ductal dilatation. ?? SPLEEN: Spleen is normal size. ?? PANCREAS: Pancreas is in size. No gross solid lesion or main ductal dilatation. ?? ADRENALS: Normal. ?? KIDNEYS/URINARY TRACT: The kidneys are normal in size and symmetric in enhancement. No hydronephrosis or perinephric stranding is seen. Urinary bladder is partially distended. No substantial wall thickening or stranding. ?? GI: There is stool throughout a nondilated colon. The cecum is located within the left midabdomen. The appendix is not definitely seen. The terminal ileum appears grossly normal. There is fluid throughout the small bowel. The distal small bowel is nondilated. There are prominent air and fluid-filled loops of small bowel within the right lower quadrant measuring up to 3.3 cm. No definite transition point is seen. The proximal jejunum is decompressed and located within the right-sided of the abdomen with relative paucity of small bowel within the left abdomen. The stomach and duodenum appear grossly normal. ?? PERITONEUM: No free air or ascites. Mild mesenteric stranding. Prominent mesenteric lymph nodes, likely reactive. For reference is a 1.4 x 0.7 cm lymph node (108). ?? RETROPERITONEUM: No retroperitoneal lymphadenopathy subcentimeter retroperitoneal lymph nodes noted. ?? REPRODUCTIVE: No significant abnormality. ?? VASCULATURE: Aorta is normal caliber. ?? MUSCULOSKELETAL: Bone windows demonstrate no suspicious lytic or sclerotic lesion. ?? OTHER: No other abnormality. IMPRESSION: ? 1. Mildly dilated small bowel loops within [...] performed in 3 months to document stability. Assessment /Plan Principal Problem: SBO (small bowel obstruction) (CMS/HCC) ([facility]) Active Problems: Allergic rhinitis Primary hypertension Pure hypercholesterolemia Gastroesophageal reflux disease without esophagitis KARRIE (obstructive sleep apnea) Controlled type 2 diabetes mellitus without complication, without long-term current use of insulin (CMS/HCC) ([facility]) 1. SBO- CT noted dilated small bowel loops in the right lower quad, patient is NPO with IV hydration and pain management PRN, consult general surgery 2. HTN- obtain vital signs per floor protocol and adjust medication as needed continue Norvasc 5 mgBID and Lisinopril 20 mg QD 3. HLD- pravastatin 40 Mg QD 4. Seasonal allergies- loratadine 10 mg every day, singular 10 mg QD 5. GERD- Protonix 40 mg every day 6. DM II- Accu check Q6 hours while NPO and cover with SSI hold Januvia 7. KARRIE- patient has been diagnosed with sleep apnea but reported his follow-up with pulmonary is not till March 23. DVT prophylaxis- Lovenox 40 Mg QD Full Code Estimated length of Stay: Inpatient > 3 midnights Brenda Chicas [facility] [id number] 09/12/2021 2:07 AM IBrenda [facility], spent 34 min on the management and care of this patient. Cosigned by Jovita Cardoso MD at 09/12/2021 6:45 AM CDT Associated attestation - Jovita Cardoso MD - 09/12/2021 6:45 AM CDT Patient was evaluated and cared for in conjunction with advanced practice provider. I have personally and independently examined the patient and reviewed the chart and all pertinent data including imaging and labs and agree with the history and physical as well as the management plan of the advanced practice provider. Patient is hospitalized with small bowel obstruction, has history of hypertension, dyslipidemia, diabetes and gastroesophageal reflux disease with few other comorbidities. He will be kept NPO will be maintained on IV fluids with an evaluation by the general surgeon in a.m.. I spent more than 35 minutes in taking care of the patient documented in this encounter Consult Notes * Jayce Yousif MD - 09/12/2021 3:30 PM CDTAssociated Order(s): IP CONSULT TO GENERAL SURGERY General Surgery Consult Reason for Consult: SBO Requesting Provider: Dr. King Chaidez Patient is a 26 y.o. male with chief complaint of abd pain. This has been a chronic issue for him. Initially started almost 2 years ago. Has had extensive work up at multiple facilities in [place] ([facility], [facility]). Pain mostly in the supraumbilical region associated with nausea. He has had intermittent episodes of constipation alternating with diarrhea as well. A abd US was done in 2020 which showed a small polyp in his GB (6 mm). This was followed up with a HIDA scan which was negative as well as EGD and Cscope which were unremarkable. A repeat US was done this year which showed that the polyp had increased in size slightly (7.8 x 6.3 x 8.4 mm). He was referred to a surgeon [place] for potential cholecystectomy but never made it to his appointment. In the last 48 hours, he has had increasing abd pain associated with nausea/emesis. Pain has been constant and localized in the supraumbilical region. He reports low grade fevers. Also had diarrhea yesterday. He went to the ED at [facility] yesterday and was transferred to [facility] as there was no general surgery coverage. A CT abd/pelv was done which showed mild dilation of small bowel concerning for enteritis vs ileus. 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 Past Medical History: Diagnosis Date ??? Allergic rhinitis ??? Gastroschisis ??? Hypertension ??? Sleep apnea Past Surgical History: Procedure Laterality Date ??? REPAIR GASTROSCHISIS / OMPHALOCELE 1994 [facility] ??? SEPTOPLASTY 2019 [facility] MEDICATIONS : amLODIPine (NORVASC) 5 mg tablet atorvastatin (LIPITOR) 20 mg tablet lisinopriL (PRINIVIL,ZESTRIL) 20 mg tablet loratadine (CLARITIN) 10 mg tablet montelukast (SINGULAIR) 10 mg tablet omeprazole (PriLOSEC) 40 mg capsule SITagliptin (JANUVIA) 25 mg tablet Current Facility-Administered Medications: ??? acetaminophen (TYLENOL) tablet 650 mg, 650 mg, oral, Q4H PRN ??? amLODIPine (NORVASC) tablet 5 mg, 5 mg, oral, BID, 5 mg at 09/12/21 0907 ??? dicyclomine (BENTYL) tablet 20 mg, 20 mg, oral, QID PRN, 20 mg at 09/12/21 1435 ??? enoxaparin (LOVENOX) syringe 40 mg, 40 mg, subcutaneous, Daily-2100 ??? HYDROmorphone (DILAUDID) injection 2 mg, 2 mg, intravenous, Q2H PRN, 2 mg at 09/12/21 1231 ??? lisinopriL (PRINIVIL,ZESTRIL) tablet 20 mg, 20 mg, oral, Daily, 20 mg at 09/12/21 0907 ??? loratadine (CLARITIN) tablet 10 mg, 10 mg, oral, Daily ??? montelukast (SINGULAIR) tablet 10 mg, 10 mg, oral, Nightly ??? ondansetron (ZOFRAN) injection 4 mg, 4 mg, intravenous, Q4H PRN, 4 mg at 09/12/21 1020 ??? pantoprazole DR (PROTONIX) extended release tablet 40 mg, 40 mg, oral, Daily, 40 mg at 907 ??? pravastatin (PRAVACHOL) tablet 40 mg, 40 mg, oral, Nightly ??? prochlorperazine (COMPAZINE) injection 5 mg, 5 mg, intravenous, Q6H PRN ??? sodium chloride 0.9% flush 0.5-20 mL, 0.5-20 mL, intra-catheter, Q8H KARTHIK, 10 mL at 09/12/21 0627 ??? sodium chloride 0.9% flush 0.5-20 mL, 0.5-20 mL, intra-catheter, PRN ??? sodium chloride 0.9% infusion, 100 mL/hr, intravenous, Continuous, Last Rate: 100 mL/hr at 09/12/21 1032, 100 mL/hr at 09/12/21 1032 No Known Allergies Social History Tobacco Use ??? Smoking status: Never Smoker ??? Smokeless tobacco: Former User Types: Snuff Substance Use Topics ??? Alcohol use: Yes Comment: SOCIAL Family History Problem Relation Age of Onset ??? Seizures Sister Review of Systems: Constitutional: + fevers HEENT: Negative for vision loss. Negative for nasal congestion and sore throat. Respiratory: + SOB Cardiovascular: Negative for chest pain, edema Gastrointestinal: + abd pain, + nausea/ diarrhea Genitourinary: Negative for dysuria, frequent urination, Metabolic/Endocrine: Negative for cold intolerance, polydipsia, weight gain and weight loss. Neuro/Psychiatric: Negative for dizziness, headache, lightheadedness and seizures. Dermatologic: Negative for rash, skin lesion and urticaria. Musculoskeletal: Negative for bone/joint symptoms. Hematology: Negative for bleeding, easy bruising and thromboembolic events. Immunology: Negative for fever. Vitals: BP 116/81 (BP Location: Left arm, Patient Position: Lying) Pulse 92 Temp 36.6 ??C (97.9 ??F) (Oral) Resp 20 Ht 180.3 cm (5' 11 ) Wt 115.1 kg (253 lb 11.2 oz) SpO2 98% BMI 35.38 kg/m?? Intake/Output Summary (Last 24 hours) at 09/12/2021 1530 Last data filed at 09/12/2021 0627 Gross per 24 hour Intake 1020 ml Output -- Net 1020 ml Objective Physical Exam: General: does not appear in acute distress; HEENT: Head: normocephalic/atraumatic Eyes: no discharge noted; (R,L) extraocular movements are intact Ears: (R,L) hearing grossly normal Nose/Mouth/Throat: mucous membranes moist Neck: neck inspection is normal; neck ROM normal Respiratory: has normal respiratory effort Cardiac: normal heart rate present Vascular: (R,L) normal radial pulse Gastrointestinal: abdomen soft; no abdominal tenderness;periumbilical incision noted Extremities: (R,L) pink and warm Musculoskeletal: normal range of motion present Neurology: patient is awake, alert, oriented x 3 Mood: has normal mood and affect Lab/Radiology/Diagnostic Review: Laboratory review: Chemistry CMP: Lab Results Component Value Date ALBUMIN 3.7 09/12/2021 BUNSER 11 09/12/2021 CALCIUM 8.7 09/12/2021 CO2 21 (L) 09/12/2021 CHLORIDE 103 09/12/2021 CREATININE 0.71 (L) 09/12/2021 GLUCOSE 116 09/12/2021 GLUCOSE 126 09/12/2021 POTASSIUM 3.9 09/12/2021 SODIUM 137 09/12/2021 BILITOT 0.8 09/12/2021 PROT 6.9 09/12/2021 ALT 60 (H) 09/12/2021 AST 20 09/12/2021 ALKPHOS 92 09/12/2021 and CBC: Lab Results Component Value Date WBC 11.2 (H) 09/12/2021 RBC 4.81 09/12/2021 HGB 13.6 09/12/2021 HCT 42.0 09/12/2021 MCV 87.3 09/12/2021 MCH 28.3 09/12/2021 MCHC 32.4 09/12/2021 RDWCV 12.6 09/12/2021 RDWSD 40.6 09/12/2021 MPV 10.3 09/12/2021 NRBCABS 0.00 09/12/2021 Imaging review: I have reviewed the result(s) records from [facility] reviewed as mentioned in the HPI and independently examined the CT abd/pelv image(s). My findings are IMPRESSION: ? 1. Mildly dilated small bowel loops within [...] performed in 3 months to document stability. Assessment /Plan 26 y/o M w/ chronic abd pain admitted with abd pain I'm not convinced that he has any evidence of a bowel obstruction. His abd is soft and ND. He is also not nauseous or having emesis now. I've ordered a small bowel series to confirm that he does not have an obstruction. He does have a gallbladder polyp but there is no evidence of an acute infectious process. Based on his recent US results, this has increased in size slightly. He may have symptomatic gallbladder disease due to his polyp but this is not guaranteed especially since his HIDA scan was unremarkable. he told me that the has an appointment with a general surgeon in [place] later in the week with respect to his GB polyp. I encouraged him to get another opinion to see if cholecystectomy may help him. He can be on a regular diet from a surgical standpoint. documented in this encounter Nursing Notes * Nabila Navarro, RN - 09/15/2021 2:28 PM CDT Report called to Sonia SALMERON RN * Angela Ghosh RN - 09/13/2021 6:14 AM CDT Assessment of patient???s baseline is established at the beginning of the shift in flowsheets. Patient reassessed per order, unexpected findings and/or deviations from baseline are captured in flowsheets. Frequent safety checks and comfort rounds provided. Orders and/or nursing care completed as indicated. Patient monitored for response to interventions and treatments as documented in flowsheets. Patient resting throughout night. VSS and patient remained afebrile throughout. Pain controlled adequately with dilaudid and no further episodes of nausea and vomiting. Patient voicing no further complaints. Fiance remains at bedside. Patient condition remains stable and unchanged. Will continue to monitor. * Asad Mooney RN - 09/12/2021 5:29 PM CDT Patient is for transfer to room 910,he was informed ,report called and given to Cindy. documented in this encounter Miscellaneous Notes * Plan of Care - Nabila Navarro RN - 09/15/2021 2:21 PM CDT Goals: Clinical Goals for the Shift: Monitor labs, tele, vitals Summary: Discharged to [facility]. IV access and NG in place * Plan of Care - Maria L Mercedes RN - 09/15/2021 12:06 PM CDT Per staffing recruiter Betty, she received notification of [facility] Hospital bed assignment per Dr. Gilbert, room 528, report ph# [phone]. clock and watch hands dipper to complete transfer authorization & CMN forms & arrange EMS transport. No further CM follow-up needed. MARLENE Cortez-BRYANT [facility] [phone] * Plan of Care - Maria L Mercedes RN - 09/15/2021 11:44 AM CDT CM informed pt & significant other Mary at bedside that he has assigned bed at [facility] pending bed occupancy. Await notification from [facility] with bed assignment. MARLENE Cortez-BRYANT [facility] [phone] * Plan of Care - Christianne Perkins RN - 09/15/2021 9:09 AM CDT Return call from Robyn MCCLAIN not received. Call placed to [facility], spoke with SARAHI Hinojosa, who confirmed that they take pt.'s [employer] insurance. Call placed to the [facility] access line. Pt. is currently on the waiting list for a bed at [facility] and is assigned to one but it is currently occupied, once that pt. discharges and bed is ready they will calland let us know. Dr. Ro & Anshul Mercedes RN CM notified. Christianne Perkins RN BSN, Press Breaker [phone]' * Plan of Care - Christianne Perkins RN - 09/14/2021 5:28 PM CDT Call placed to the [facility] access line to verify the transfer process. Spoke with Bobbi, who informed me that in order for a pt. to transfer due to insurance the hospital the patient is transferring to has to be called and the SW there has to verify that they take the patient's insurance. Inquired when this process has changed because we have never had to do that. Per Bobbi that is how the process was always supposed to be. Call placed to [facility], spoke with a SW - Roberto, she is not aware of this process and referred me to her chiropractic practice manager, Sarah - [phone]. Message left for Sarah with this information requesting a return call. Christianne Perkins RN BSN, Press Breaker [phone] * Plan of Care - Katlyn Hernandez RN - 09/14/2021 2:23 PM CDT Goals: Clinical Goals for the Shift: Stable VS & labs. Comfort & safety. Pain management. NG placement. Decompress stomach. Summary: Problem: Health Behavior: Goal: Understanding of discharge needs will improve Outcome: Progressing Problem: Lack of Knowledge: Goal: Ability to state ways to decrease the risk of falls will improve Outcome: Progressing Problem: Safety: Goal: Will remain free from falls Outcome: Progressing Goal: Will remain free from injury from falls Outcome: Progressing Goal: Will remain free from falls and injury in home environment Outcome: Progressing Problem: Activity: Goal: Risk for activity intolerance will decrease Outcome: Progressing Problem: Lack of Knowledge: Goal: Knowledge of disease or condition will improve Outcome: Progressing Goal: Ability to state and carry out methods to decrease the pain will improve Outcome: Progressing Problem: Health Behavior: Goal: Ability to state signs and symptoms to report to health care provider will improve Outcome: Progressing * Plan of Care - Katlyn Hernandez RN - 09/13/2021 4:51 PM CDT Goals: Clinical Goals for the Shift: Stable VS & labs. Comfort & safety. Pain management. Summary: Problem: Health Behavior: Goal: Understanding of discharge needs will improve 09/13/20211646 by Katlyn Hernandez, BRYANT Outcome: Progressing 09/13/20211646 by Katlyn Hernandez RN Outcome: Progressing Problem: Lack of Knowledge: Goal: Ability to state ways to decrease the risk of falls will improve 09/13/20211646 by Katlyn Hernandez RN Outcome: Progressing 09/13/20211646 by Katlyn Hernandez RN Outcome: Progressing Problem: Safety: Goal: Will remain free from falls 09/13/2021 164 by Katlyn Hernandez RN Outcome: Progressing 09/13/20211646 by Katlyn Hernandez RN Outcome: Progressing Goal: Will remain free from injury from falls 09/13/20211646 by Katlyn Hernandez RN Outcome: Progressing 09/13/20211646 by Katlyn Hernandez RN Outcome: Progressing Goal: Will remain free from falls and injury in home environment 09/13/20211646 by Katlyn Hernandez RN Outcome: Progressing 09/13/20211646 by Katlyn Hernandez RN Outcome: Progressing Problem: Activity: Goal: Risk for activity intolerance will decrease Outcome: Progressing Problem: Lack of Knowledge: Goal: Knowledge of disease or condition will improve Outcome: Progressing Goal: Ability to state and carry out methods to decrease the pain will improve Outcome: Progressing Problem: Health Behavior: Goal: Ability to state signs and symptoms to report to health care provider will improve Outcome: Progressing Problem: Sensory: Goal: Pain level will decrease Outcome: Not Progressing * Plan of Care - Angela Ghosh RN - 09/12/2021 7:56 PM CDT Goals: Clinical Goals for the Shift: managed pain, vss, comfort/safety Problem: Health Behavior: Goal: Understanding of discharge needs will improve Outcome: Progressing * Plan of Care - Asad Mooney RN - 09/12/2021 3:45 PM CDT Goals: Clinical Goals for the Shift: managed pain, vss, comfort/safety Summary: Complained of constant pain and nausea analgesic was administered as ordered.Patient is for transfer to a telemetry floor. * Plan of Care - Genesis Landers RN - 09/12/2021 5:51 AM CDT Problem: Health Behavior: Goal: Understanding of discharge needs will improve Outcome: Progressing Problem: Lack of Knowledge: Goal: Ability to state ways to decrease the risk of falls will improve Outcome: Progressing Problem: Safety: Goal: Will remain free from falls Outcome: Progressing Goal: Will remain free from injury from falls Outcome: Progressing Goal: Will remain free from falls and injury in home environment Outcome: Progressing Goals: Clinical Goals for the Shift: managed pain, vss, comfort/safety Summary: RECEIVED PATIENT A DIRECT ADMIT FROM [facility], VIA STRETCHER, ALERT AND ORIENTED. REPORT RECEIVED FORM BRYANT MCNALLY. ABLE TO MAKE NEEDS KNOWN. REFUSED BED ALARM. EDUCATED. VERBALIZED UNDERSTANDING. SKIN IS INTACT. 2 RN SKIN CHECK DONE. DEBORAE IS AT BEDSIDE ALL NIGHT. MANAGEMENT AWARE. C/O ALMA-UMBILICAL PAIN THROUGHOUT THE NIGHT. INFORMED BRENDA CHICAS NP. RECEIVED ORDER. SEE MAR. MEDICATED WITH DILAUDID 1 MG PER REQUESTS. PER PATIENT, IT DIDN'T HELP MUCH. MESSAGE ON-CALL. ORDER CHANGED. SEE MAR. C/O NAUSEA. INFORMED SHERRY CHICAS. RECEIVED ORDER. SEE MAR. GIVEN; HELPED. NO ACUTE DISTRESS NOTED. ACCUCHECKS ORDERED. RESTED ON-OFF TONIGHT. IVF CONTINUES. SAFETY CHECKS IN PLACE CALL LIGHT WITHIN REACH. WILL CONTINUE TO MONITOR. documented in this encounter Plan of Treatment Not on file documented as of this encounter Procedures Procedure Name Priority Date/Time Associated Diagnosis Comments POCT GLUCOSE DEVICE Routine 09/15/2021 1 2:39 PM CDT EGFR Routine 09/15/2021 5:29 AM CDT DIFFERENTIAL AUTO Routine 09/15/2021 5:2 9 AM CDT CBC WITH AUTO DIFFERENTIAL Routine 09/15/2021 5:29 AM CDT COMPREHENSIVE METABOLIC PANEL Routine 09/15/2021 5:29 AM CDT POCT GLUCOSE DEVICE Routine 09/15/2021 3 :32 AM CDT POCT GLUCOSE DEVICE Routine 09/14/2021 8 :01 PM CDT XR ABDOMEN AP 1 VIEW ED Urgent/IP Urgent 09/14/2021 12:49 PM CDT XR ABDOMEN AP 1 VIEW ED Urgent/IP Urgent 09/14/2021 12:08 PM CDT POCT GLUCOSE DEVICE Routine 09/13/2021 9 :34 PM CDT FL SMALL BOWEL SERIES IP Routine 09/13/2021 6:04 PM CDT EGFR Routine 09/13/2021 8:36 AM CDT DIFFERENTIAL AUTO Routine 09/13/2021 8:3 6 AM CDT CBC WITH AUTO DIFFERENTIAL Routine 09/13/2021 8:36 AM CDT BASIC METABOLIC PANEL Routine 09/13/2021 8:36 AM CDT POCT GLUCOSE DEVICE Routine 09/12/2021 5 :09 PM CDT POCT GLUCOSE DEVICE Routine 09/12/2021 8 :20 AM CDT EGFR Routine 09/12/2021 5:27 AM CDT DIFFERENTIAL AUTO Routine 09/12/2021 5:2 7 AM CDT CBC WITH AUTO DIFFERENTIAL Routine 09/12/2021 5:27 AM CDT PHOSPHORUS Routine 09/12/2021 5:27 AM CDT MAGNESIUM Routine 09/12/2021 5:27 AM CDT COMPREHENSIVE METABOLIC PANEL Routine 09/12/2021 5:27 AM CDT POCT GLUCOSE DEVICE Routine 09/12/2021 2 :27 AM CDT documented in this encounter Results * POCT glucose (09/15/2021 12:39 PM CDT) Glucose, POC 84 70 - 199 mg/dL [facility] Blood 09/15/2021 12:3 9 PM CDT 09/15/2021 12:39 PM CDT Desmond Ro DO LAB POCT ORDERABLES - GELACIO CE Final Result Performing Organization Address City/State/[facility] Co de Phone Number [facility] [id number] Department [place] [address] * eGFR (09/15/2021 5:29 AM CDT) eGFR [...] AM CDT 09/15/2021 5:36 AM CDT Desmond Karthikmayur Ro DO LAB BLOOD ORDERABLES Final Result [facility] [id number] Department [place] [address] * (ABNORMAL) Differential, auto (09/15/2021 5:29 AM CDT) Neutrophil abs 6.6(H) 1.7 - 6.5 K/cumm [facility] gran abs 0.1 0.0 - 0.1 K/cumm [facility] Lymphocyte abs 1.8 0.8 - 3.3 K/cumm [facility] Monocyte abs 0.7 0.2 - 0.8 K/cumm [facility] Eosinophil abs 0.1 0.0 - 0.5 K/cumm [facility] Basophil abs 0.0 0.0 - 0.1 K/cumm [facility] Neutrophil pct 71.3 % [facility] Comment: Interpretive Data Percent cell count reference ranges are not reported, since discordance with absolute values may lead to misinterpretation of CBC data. Current Interpretive Data was last revised on 2017. Imm gran pct 0.5 % [facility] Comment: Interpretive Data Percent cell count reference ranges are not reported, since discordance with absolute values may lead to misinterpretation of CBC data. Current Interpretive Data was last revised on 2017. Lymphocyte pct 19.1 % [facility] Comment: Interpretive Data Percent cell count reference ranges are not reported, since discordance with absolute values may lead to misinterpretation of CBC data. Current Interpretive Data was last revised on 2017. Monocyte pct 7.6 % [facility] Comment: Interpretive Data Percent cell count reference ranges are not reported, since discordance with absolute values may lead to misinterpretation of CBC data. Current Interpretive Data was last revised on 2017. Eosinophil pct 1.2 % [facility] Comment: Interpretive Data Percent cell count reference ranges are not reported, since discordance with absolute values may lead to misinterpretation of CBC data. Current Interpretive Data was last revised on 2017. Basophil pct 0.3 % [facility] Comment: Interpretive Data Percent cell count reference ranges are not reported, since discordance with absolute values may lead to misinterpretation of CBC data. Current Interpretive Data was last revised on 2017. Blood 09/15/2021 5:29 AM CDT 09/15/2021 5:36 AM CDT Desmond Ro DO LAB BLOOD ORDERABLES Final Result [facility] [address] Department [place] [address] * (ABNORMAL) CBC with auto differential (09/15/2021 5:29 AM CDT) WBC 9.3 3.8 - 9.9 K/cumm [facility] Hgb 12.8(L) 13.0 - 17.5 g/dL [facility] Hct 39.2 38.9 - 50.3 % [facility] Plt 319 150 - 400 K/cumm [facility] MPV 9.8 9.1 - 12.3 fL [facility] RBC 4.58 4.30 - 5.80 M/cumm [facility] MCV 85.6 81.3 - 96.4 fL [facility] MCH 27.9 27.1 - 33.3 pg [facility] MCHC 32.7 32.3 - 35.7 g/dL [facility] RDW CV 12.0 11.1 - 14.9 % [facility] RDW SD 37.2 35.7 - 48.1 fL [facility] NRBC abs 0.00 0.00 - 0.01 K/cumm [facility] Blood 09/15/2021 5:29 AM CDT 09/15/2021 5:36 AM CDT Desmond Ro DO LAB BLOOD ORDERABLES Final Result [facility] [address] Department [place] [address] * (ABNORMAL) Comprehensive metabolic panel (09/15/2021 5:29 AM CDT) Sodium 136 135 - 145 mmol/L [facility] Potassium, pl 3.8 3.3 - 4.9 mmol/L [facility] Chloride 99 97 - 110 mmol/L [facility] CO2 25 22 - 32 mmol/L [facility] Anion gap 12 2 - 15 mmol/L [facility] BUN 10 8 - 25 mg/dL [facility] Creatinine 0.61(L) 0.80 - 1.30 mg/dL [facility] Glucose 105 70 - 199 mg/dL [facility] Comment: Interpretive Data Fasting glucose >/= 126 [...] Calcium 9.3 8.5 - 10.3 mg/dL [facility] Bilirubin, total 0.9 0.1 - 1.2 mg/dL [facility] Protein, pl 7.2 6.5 - 8.5 g/dL [facility] Albumin 3.9 3.5 - 5.0 g/dL [facility] Alk phos 81 40 - 130 Units/L [facility] ALT 46 7 - 55 Units/L [facility] AST 25 10 - 50 Units/L [facility] Blood 09/15/2021 5:29 AM CDT 09/15/2021 5:36 AM CDT Desmond Karthik Jayjay DO LAB BLOOD ORDERABLES Final Result Performing Organization Address [facility]/ZIP Co de Phone Number [facility] [address] [facility] [employer] [place] [address] * POCT glucose (09/15/2021 3:32 AM CDT) Glucose, POC 97 70 - 199 mg/dL [facility] Blood 09/15/2021 3:32 AM CDT 09/15/2021 3:32 AM CDT [facility] POCT ORDERABLES - GELACIO CE Final Result Performing Organization Address [facility] Co de Phone Number [facility] [address] [facility] [employer] [place] [address] * POCT glucose (09/14/2021 8:01 PM CDT) Glucose, POC 71 70 - 199 mg/dL [facility] Blood 09/14/2021 8:01 PM CDT 09/14/2021 8:01 PM CDT us [facility] POCT ORDERABLES - GELACIO CE Final Result Performing Organization Address [facility] Co de Phone Number [facility] [address] [employer] [place] [address] * XR Abdomen Ap 1 Vw (09/14/2021 12:49 PM CDT) Anatomical Region Laterality Modality Body, Abdomen N/A Computed Radiogr aphy 09/14/2021 12:5 5 PM CDT Impressions 09/14/2021 12:55 PM CDT SATISFACTORY POSITIONING NASOGASTRIC TUBE Electronically signed by: Pato Evans M.D. Narrative 09/14/2021 12:55 PM CDT EXAMINATION: XR ABDOMEN AP 1 VIEW dated 09/14/2021 12:40 PM HISTORY: Tube placement TECHNIQUE: Nasogastric tube placement FINDINGS: KUB demonstrates tube well-positioned in the gastric fundus. Distended colon and small bowel.. Procedure Note Pato Evans MD - 09/14/2021 EXAMINATION: XR ABDOMEN AP 1 VIEW dated 09/14/2021 12:40 PM HISTORY: Tube placement TECHNIQUE: Nasogastric tube placement FINDINGS: KUB demonstrates tube well-positioned in the gastric fundus. Distended colon and small bowel.. IMPRESSION: SATISFACTORY POSITIONING NASOGASTRIC TUBE Electronically signed by: Pato Evans M.D. Desmond Ro DO IMG XR PROCEDURES Final Re sult * XR Abdomen Ap 1 Vw (09/14/2021 12:08 PM CDT) Anatomical Region Laterality Modality Body, Abdomen N/A Computed Radiogr aphy 09/14/2021 12:1 4 PM CDT Impressions 09/14/2021 12:14 PM CDT FINDINGS/IMPRESSION: There is a nonspecific colonic gas pattern with scattered fecal content and gas. ??The tip of the NG tube terminates in the distal esophagus and needs advancement of at least 10 to 12 cm to reach the stomach. ??There is scattered oral contrast throughout the moderately dilated distal small bowel as well as the normal-appearing colon.. No pathologic abdominal calcification is seen. Electronically signed by: Terrence Reyna M.D. Narrative 09/14/2021 12:14 PM CDT EXAMINATION: XR ABDOMEN AP 1 VIEW HISTORY: NG tube check ORDER DATE: 09/14/2021 11:55 AM Procedure Note Terrence Reyna MD - 09/14/2021 EXAMINATION: XR ABDOMEN AP 1 VIEW HISTORY: NG tube check ORDER DATE: 09/14/2021 11:55 AM IMPRESSION: FINDINGS/IMPRESSION: There is a nonspecific colonic gas pattern with scattered fecal content and gas. The tip of the NG tube terminates in the distal esophagus and needs advancement of at least 10 to 12 cm to reach the stomach. There is scattered oral contrast throughout the moderately dilated distal small bowel as well as the normal-appearing colon.. No pathologic abdominal calcification is seen. Electronically signed by: Terrence Reyna M.D. Desmond Ro DO IMG XR PROCEDURES Final Re sult * POCT glucose (09/13/2021 9:34 PM CDT) Glucose, POC 102 70 - 199 mg/dL [facility] Blood 09/13/2021 9:34 PM CDT 09/13/2021 9:34 PM CDT Desmond Ro DO LAB POCT ORDERABLES - GELACIO CE Final Result [facility] [address] Department [place] [address] * FL Small Bowel Series (09/13/2021 6:04 PM CDT) Anatomical Region Laterality Modality Body N/A Computed Radiogr aphy 09/14/2021 9:12 AM CDT Impressions 09/14/2021 9:12 AM CDT 1. 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 2. ??Mildly dilated loops of small bowel suggesting a partial small bowel obstruction. ??The colon is decompressed. 3. ??Follow-up radiographs of the abdomen may be helpful for further evaluation. Electronically signed by: Patrice Laguerre M.D. Narrative 09/14/2021 9:12 AM CDT EXAM: ?? FL SMALL BOWEL SERIES DATE: ?? 09/13/2021 8:35 AM CLINICAL HISTORY: ?? Small bowel obstruction versus ileus. COMPARISON: ?? CT abdomen/pelvis from 09/11/2021. FINDINGS: ?? The wireless communications engineer radiographs of the abdomen demonstrate mildly dilated loops of small bowel in the right abdomen. ??The patient drank water-soluble contrast material and imaging was performed for 8 hours. There are mildly dilated loops of jejunum which are located in the right abdomen. ??At 4 hours, contrast has not yet reached the colon. Note is made that the cecum is in the left side of the abdomen. ??At 8 hours, the contrast has become dilute, but there appears to be contrast in the colon. Procedure Note Patrice Laguerre MD - 09/14/2021 EXAM: FL SMALL BOWEL SERIES DATE: 09/13/2021 8:35 AM CLINICAL HISTORY: Small bowel obstruction versus ileus. COMPARISON: CT abdomen/pelvis from 09/11/2021. FINDINGS: The wireless communications engineer radiographs of the abdomen demonstrate mildly dilated loops of small bowel in the right abdomen. The patient drank water-soluble contrast material and imaging was performed for 8 hours. There are mildly dilated loops of jejunum which are located in the right abdomen. At 4 hours, contrast has not yet reached the colon. Note is made that the cecum is in the left side of the abdomen. At 8 hours, the contrast has become dilute, but there appears to be contrast in the colon. IMPRESSION: 1. 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 2. Mildly dilated loops of small bowel suggesting a partial small bowel obstruction. The colon is decompressed. 3. Follow-up radiographs of the abdomen may be helpful for further evaluation. Electronically signed by: Patrice Laguerre M.D. Jayce Yousif MD IMG FLUOROSCOPY PROCEDURES Final Result * eGFR (09/13/2021 8:36 AM CDT) eGFR 134 mL/min/1. 73 m2 [facility] Comment: Interpretive [...] interpretive data was last reviewed 2021. Blood 09/13/2021 8:36 AM CDT 09/13/2021 8:46 AM CDT Desmond Karthikmayur Ro DO LAB BLOOD ORDERABLES Final Result [facility] [address] Department [place] [address] * Differential, auto (09/13/2021 8:36 AM CDT) Neutrophil abs 6.0 1.7 - 6.5 K[facility] gran abs 0.0 0.0 - 0.1 K/cumm [facility] Lymphocyte abs 1.2 0.8 - 3.3 K/cumm [facility] Monocyte abs 0.6 0.2 - 0.8 K/cumm [facility] Eosinophil abs 0.1 0.0 - 0.5 K/cumm [facility] Basophil abs 0.0 0.0 - 0.1 K/cumm [facility] Neutrophil pct 76.0 % [facility] Comment: Interpretive Data Percent cell count reference ranges are not reported, since discordance with absolute values may lead to misinterpretation of CBC data. Current Interpretive Data was last revised on 2017. Imm gran pct 0.4 % [facility] Comment: Interpretive Data Percent cell count reference ranges are not reported, since discordance with absolute values may lead to misinterpretation of CBC data. Current Interpretive Data was last revised on 2017. Lymphocyte pct 14.9 % [facility] Comment: Interpretive Data Percent cell count reference ranges are not reported, since discordance with absolute values may lead to misinterpretation of CBC data. Current Interpretive Data was last revised on 2017. Monocyte pct 7.5 % [facility] Comment: Interpretive Data Percent cell count reference ranges are not reported, since discordance with absolute values may lead to misinterpretation of CBC data. Current Interpretive Data was last revised on 2017. Eosinophil pct 0.9 % [facility] Comment: Interpretive Data Percent cell count reference ranges are not reported, since discordance with absolute values may lead to misinterpretation of CBC data. Current Interpretive Data was last revised on 2017. Basophil pct 0.3 % [facility] Comment: Interpretive Data Percent cell count reference ranges are not reported, since discordance with absolute values may lead to misinterpretation of CBC data. Current Interpretive Data was last revised on 2017. Blood 09/13/2021 8:36 AM CDT 09/13/2021 8:46 AM CDT us Desmond oR LAB BLOOD ORDERABLES Final Result [facility] [address] Department [place] [address] * (ABNORMAL) Basic metabolic panel (09/13/2021 8:36 AM CDT) Sodium 135 135 - 145 mmol/L [facility] Potassium, pl 4.2 3.3 - 4.9 mmol/L [facility] Chloride 101 97 - 110 mmol/L [facility] CO2 24 22 - 32 mmol/L [facility] Anion gap 10 2 - 15 mmol/L [facility] BUN 10 8 - 25 mg/dL [facility] Creatinine 0.63(L) 0.80 - 1.30 mg/dL [facility] Glucose 122 70 - 199 mg/dL [facility] Comment: Interpretive Data Fasting glucose >/= 126 [...] interpretive data was last revised 2017. Calcium 9.1 8.5 - 10.3 mg/dL [facility] Blood 09/13/2021 8:36 AM CDT 09/13/2021 8:46 AM CDT Desmondjason [facility] BLOOD ORDERABLES Final Result [facility] [address] Department of [employer] [place] [address] * CBC with auto differential (09/13/2021 8:36 AM CDT) WBC 7.9 3.8 - 9.9 K/cumm [facility] Hgb 13.1 13.0 - 17.5 g/dL [facility] Hct 40.3 38.9 - 50.3 % [facility] Plt 281 150 - 400 K/cumm [facility] MPV 10.1 9.1 - 12.3 fL [facility] RBC 4.53 4.30 - 5.80 M/cumm [facility] MCV 89.0 81.3 - 96.4 fL [facility] MCH 28.9 27.1 - 33.3 pg [facility] MCHC 32.5 32.3 - 35.7 g/dL [facility] RDW CV 12.1 11.1 - 14.9 % [facility] RDW SD 39.7 35.7 - 48.1 fL [facility] NRBC abs 0.00 0.00 - 0.01 K/cumm [facility] Blood 09/13/2021 8:36 AM CDT 09/13/2021 8:46 [address] [facility] BLOOD ORDERABLES Final Result [facility] [address] Department of [employer] [place] [address] * POCT glucose (09/12/2021 5:09 PM CDT) Glucose, POC 96 70 - 199 mg/dL [facility] Blood 09/12/2021 5:09 PM CDT 09/12/2021 5:09 PM CDT Desmond Ro DO LAB POCT ORDERABLES - GELACIO CE Final Result Performing Organization Address City/[facility]/ZIP Co de Phone Number [facility] [address] [employer] [place] [address] * POCT glucose (09/12/2021 8:20 AM CDT) Glucose, POC 116 70 - 199 mg/dL [facility] Blood 09/12/2021 8:20 AM CDT 09/12/2021 8:20 AM CDT Desmond Ro DO LAB POCT ORDERABLES - GELACIO CE Final Result Performing Organization Address [facility] de Phone Number [facility] [address] of [employer] [place] [address] * eGFR (09/12/2021 5:27 AM CDT) eGFR 129 mL/min/1. 73 m2 [facility] Comment: Interpretive Data Reference Interval Normal ?>/= [...] interpretive data was last reviewed 2021. Blood 09/12/2021 5:27 AM CDT 09/12/2021 6:04 AM CDT us Brenda Chicas NP LAB BLOOD ORDERABLES Alexandra eaton Result [facility] [address] Department [place] [address] * (ABNORMAL) Differential, auto (09/12/2021 5:27 AM CDT) Neutrophil abs 8.7(H) 1.7 - 6.5 K/cumm [facility] Imm gran abs 0.1 0.0 - 0.1 K/cumm [facility] Lymphocyte abs 1.6 0.8 - 3.3 K/cumm [facility] Monocyte abs 0.7 0.2 - 0.8 K/cumm [facility] Eosinophil abs 0.2 0.0 - 0.5 K/cumm [facility] Basophil abs 0.0 0.0 - 0.1 K/cumm [facility] Neutrophil pct 77.6 % [facility] Comment: Interpretive Data Percent cell count reference ranges are not reported, since discordance with absolute values may lead to misinterpretation of CBC data. Current Interpretive Data was last revised on 2017. Imm gran pct 0.4 % [facility] Comment: Interpretive Data Percent cell count reference ranges are not reported, since discordance with absolute values may lead to misinterpretation of CBC data. Current Interpretive Data was last revised on 2017. Lymphocyte pct 14.2 % [facility] Comment: Interpretive Data Percent cell count reference ranges are not reported, since discordance with absolute values may lead to misinterpretation of CBC data. Current Interpretive Data was last revised on 2017. Monocyte pct 6.2 % [facility] Comment: Interpretive Data Percent cell count reference ranges are not reported, since discordance with absolute values may lead to misinterpretation of CBC data. Current Interpretive Data was last revised on 2017. Eosinophil pct 1.3 % [facility] Comment: Interpretive Data Percent cell count reference ranges are not reported, since discordance with absolute values may lead to misinterpretation of CBC data. Current Interpretive Data was last revised on 2017. Basophil pct 0.3 % [facility] Comment: Interpretive Data Percent cell count reference ranges are not reported, since discordance with absolute values may lead to misinterpretation of CBC data. Current Interpretive Data was last revised on 2017. Blood 09/12/2021 5:27 AM CDT 09/12/2021 6:04 AM CDT Brenda Chicas NAUTICAL INSTRUMENT MECHANIC LAB BLOOD ORDERABLES Alexandra l Result [facility] [address] Department [place] [address] * (ABNORMAL) CBC with auto differential (09/12/2021 5:27 AM CDT) WBC 11.2(H) 3.8 - 9.9 K/cumm [facility] Hgb 13.6 13.0 - 17.5 g/dL [facility] Hct 42.0 38.9 - 50.3 % [facility] Plt 302 150 - 400 K/cumm [facility] MPV 10.3 9.1 - 12.3 fL [facility] RBC 4.81 4.30 - 5.80 M/cumm [facility] MCV 87.3 81.3 - 96.4 fL [facility] MCH 28.3 27.1 - 33.3 pg [facility] MCHC 32.4 32.3 - 35.7 g/dL [facility] RDW CV 12.6 11.1 - 14.9 % [facility] RDW SD 40.6 35.7 - 48.1 fL [facility] NRBC abs 0.00 0.00 - 0.01 K/cumm [facility] Blood 09/12/2021 5:27 AM CDT 09/12/2021 6:04 AM CDT Brenda Chicas NAUTICAL INSTRUMENT MECHANIC LAB BLOOD ORDERABLES Alexandra l Result Performing Organization Address City/[facility]/ZIP Co de Phone Number [facility] [address] [facility] [employer] [place] [address] * Phosphorus (09/12/2021 5:27 AM CDT) Pathologist [facility] Phosphorus, pl 4.0 2.3 - 4.5 mg/dL [facility] Blood 09/12/2021 5:27 AM CDT 09/12/2021 6:04 AM CDT Brenda Chicas NAUTICAL INSTRUMENT MECHANIC LAB BLOOD ORDERABLES Alexandra l Result Performing Organization Address [facility] de Phone Number [facility] [address] [place] [address] * Magnesium (09/12/2021 5:27 AM CDT) Pathologist [facility] Magnesium 2.0 1.4 - 2.5 mg/dL [facility] Blood 09/12/2021 5:27 AM CDT 09/12/2021 6:04 AM CDT Brenda Chicas NAUTICAL INSTRUMENT MECHANIC LAB BLOOD ORDERABLES Alexandra l Result Performing Organization Address [facility] de Phone Number [facility] [address] [facility] [employer] [place] [address] * (ABNORMAL) Comprehensive metabolic panel (09/12/2021 5:27 AM CDT) Pathologist [facility] Sodium 137 135 - 145 mmol/L [facility] Potassium, pl 3.9 3.3 - 4.9 mmol/L [facility] Chloride 103 97 - 110 mmol/L [facility] CO2 21(L) 22 - 32 mmol/L [facility] Anion gap 13 2 - 15 mmol/L [facility] BUN 11 8 - 25 mg/dL [facility] Creatinine 0.71(L) 0.80 - 1.30 mg/dL [facility] Glucose 126 70 - 199 mg/dL [facility] Comment: Interpretive Data Fasting glucose >/= 126 [...] interpretive data was last revised 2017. Calcium 8.7 8.5 - 10.3 mg/dL [facility] Bilirubin, total 0.8 0.1 - 1.2 mg/dL [facility] Protein, pl 6.9 6.5 - 8.5 g/dL [facility] Albumin 3.7 3.5 - 5.0 g/dL [facility] Alk phos 92 40 - 130 Units/L [facility] ALT 60(H) 7 - 55 Units/L [facility] AST 20 10 - 50 Units/L [facility] Blood 09/12/2021 5:27 AM CDT 09/12/2021 6:04 AM CDT Brenda Chicas NAUTICAL INSTRUMENT MECHANIC LAB BLOOD ORDERABLES Alexandra l Result [facility] [address] [employer] [place], [place] [id number] * POCT glucose (09/12/2021 2:27 AM CDT) Glucose, POC 97 70 - 199 mg/dL [facility] Blood 09/12/2021 2:27 AM CDT 09/12/2021 2:27 AM CDT Desmond Ro DO LAB POCT ORDERABLES - GELACIO CE Final Result [facility] [address] [employer] [place] [address] documented in this encounter Visit Diagnoses Diagnosis SBO (small bowel obstruction) (CMS/HCC) (HCC)- Primary Unspecified intestinal obstruction Allergic rhinitis Allergic rhinitis, cause unspecified Primary hypertension Unspecified essential hypertension Pure hypercholesterolemia Gastroesophageal reflux disease without esophagitis Esophageal reflux KARRIE (obstructive sleep apnea) Obstructive sleep apnea (adult) (pediatric) Controlled type 2 diabetes mellitus without complication, without long-term current use of insulin (CMS/HCC) (HCC) Ileus (CMS/HCC) (HCC) Paralytic ileus documented in this encounter Administered Medications Inactive Administered Medications - up to 3 most recent administrations Medication Order MAR Action Action Date Dose Rate Site acetaminophen (TYLENOL) tablet 650 mg 650 mg, oral, Every 4 hours PRN, fever, headaches, fever greater than 38.3 C, Starting on 09/12/21 at 0004, Indications: Fever, PainIndications:Fever,Pain al & mag hydroxide tmqnemitcjq-whayocwwlxgyqxc-jrckzht ne-nystatin (MAGIC MOUTHWASH) suspension 1-1-1-1 15 mL, swish & swallow, Every 4 hours PRN, mucositis, other, Sore Throat 2nd Line, Starting on 09/14/21 at 1207 amLODIPine (NORVASC) tablet 10 mg 10 mg, oral, Daily, First dose (after last modification) on Tue09/13/21 at 0900 Given 09/15/2021 9:14 AM CDT 10 mg Given 09/14/2021 10:20 AM CDT 10 mg Given 09/13/2021 8:48 AM CDT 10 mg amLODIPine (NORVASC) tablet 5 mg 5 mg, oral, 2 times daily, First dose on 09/12/21 at 0900 Given 09/12/2021 9:07 AM CDT 5 mg amLODIPine (NORVASC) tablet 5 mg 5 mg, oral, Once, On 09/12/21 at 2030, For 1 dose Given 09/12/2021 9:35 PM CDT 5 mg dextrose (D10W) 10% bolus 250 mL 250 mL, intravenous, at 1,000 mL/hr, Administer over 15 Minutes, Every 15 min PRN, blood glucose less than 70 mg/dL and UNABLE to swallow/take PO glucose/juice., Starting on Tue09/14/21 at 2018, After treatment for hypoglycemia, recheck BG followed by treatment every 15 minutes until the BG is greater than 100 mg/dL. Then check BG 1 hour post treatment. If BG is less than 100 mg/dL, repeat Q15 minute BG checks and treatment. Call MD for each episode of hypoglycemia., Indications: hypoglycemic disorderIndications:hypoglycemic disorder dextrose 5% and sodium chloride 0.9% infusion (premix) 100 mL/hr, intravenous, Continuous, Starting on 09/14/21 at 2100 New Bag 09/15/2021 7:29 AM CDT 100 mL/hr 100 mL/hr New Bag 09/14/2021 9:05 PM CDT 100 mL/hr 100 mL/hr dextrose oral liquid liquid 15 g 15 g, oral, Every 15 min PRN, low blood sugar, blood glucose less than 70 mg/dL, Starting on Tue09/14/21 at 2018, If patient is alert and able to eat/drink, give 15 gm glucose or one juice (4 fluid ounces) NOT ORANGE JUICE. After treatment for hypoglycemia, recheck BG followed by treatment every 15 minutes until the BG is greater than 100 mg/dL. Then check BG 1 hour post-treatment. If BG is less than 100 mg/dL, repeat Q15 minute BG checks and treatment. Call MD for each episode of hypoglycemia., Indications: hypoglycemic disorderIndications:hypoglycemi c disorder dicyclomine (BENTYL) tablet 20 mg 20 mg, oral, 4 times daily PRN, abdominal discomfort, cramping, 1st Line, Starting on 09/12/21 at 0847 Given 09/12/2021 2:35 PM CDT 20 mg enoxaparin (LOVENOX) syringe 40 mg 40 mg, subcutaneous, Daily (for enoxaparin), First dose on 09/12/21 at 2100, Indications: Deep Vein Thrombosis PreventionIndications:Deep Vein Thrombosis Prevention Given 09/14/2021 8:58 PM CDT 40 mg Left Lower Abdomen Given 09/13/2021 9:27 PM CDT 40 mg Le ft Upper Abdomen Given 09/12/2021 9:35 PM CDT 40 mg Le ft Lower Abdomen glucagon injection 1 mg 1 mg, intramuscular, Every 30 min PRN, low blood sugar, blood glucose less than 70 mg/dL AND no IV access AND unable to take PO glucose/juice., Starting on Tue09/14/21 at 2018, After Glucagon is administered, position patient on side if possible to avoid aspiration. Obtain IV access. Follow glucagon treatment with glucose treatment or IV dextrose. After treatment for hypoglycemia, recheck BG followed by treatment every 15 minutes until the BG is greater than 100 mg/dL. Then check BG 1 hour post treatment. If BG is less than 100 mg/dL, repeat Q15 minute BG checks and treatment. Call MD for each episode of hypoglycemia. Reconstitute 1 mg vial with 1 mL SWFI. Use immediately following reconstitution. HYDROmorphone (DILAUDID) injection 1 mg 1 mg, intravenous, Administer over 2 Minutes, Every 2 hours PRN, 1st line for pain, Starting on 09/12/21 at 0004 Given 09/12/2021 4:17 AM CDT 1 mg Given 09/12/2021 2:19 AM CDT 1 mg Given 09/12/2021 12:19 AM CDT 1 mg HYDROmorphone (DILAUDID) injection 2 mg 2 mg, intravenous, Administer over 2 Minutes, Every 2 hours PRN, 1st line for pain, Starting on 09/12/21 at 0428 Given 09/15/2021 1:48 PM CDT 2 mg Given 09/15/2021 11:34 AM CDT 2 mg Given 09/15/2021 9:21 AM CDT 2 mg iohexoL (OMNIPAQUE) 300 mg iodine/mL injection solution 200 mL 200 mL, oral, Once in imaging, contrast, Starting on Tue09/13/21 at 1030, For 1 dose Contrast Given 09/13/2021 10:31 AM CDT 200 mL lisinopriL (PRINIVIL,ZESTRIL) tablet 20 mg 20 mg, oral, Daily, First dose on 09/12/21 at 0900 Given 09/15/2021 9:13 AM CDT 20 mg Given 09/14/2021 10:19 AM CDT 20 mg Given 09/13/2021 8:48 AM CDT 20 mg loratadine (CLARITIN) tablet 10 mg 10 mg, oral, Daily PRN, allergies, Starting on 09/14/21 at 2000, Indications: liquid gelIndications:liquid gel montelukast (SINGULAIR) tablet 10 mg 10 mg, oral, Nightly, First dose on 09/12/21 at 2100 Given 09/13/2021 9:27 PM CDT 10 mg Given 09/12/2021 9:35 PM CDT 10 mg ondansetron (ZOFRAN) injection 4 mg 4 mg, intravenous, Administer over 2 Minutes, Every 6 hours PRN, nausea, vomiting, Starting on 09/12/21 at 0427 Given 09/12/2021 4:32 AM CDT 4 mg ondansetron (ZOFRAN) injection 4 mg 4 mg, intravenous, Administer over 2 Minutes, Every 4 hours PRN, nausea, vomiting, 1st Line, Starting on 09/12/21 at 0900 Given 09/13/2021 12:09 PM CDT 4 mg Given 09/13/2021 6:52 AM CDT 4 mg Given 09/12/2021 4:55 PM CDT 4 mg ondansetron (ZOFRAN) injection 4 mg 4 mg, intravenous, Administer over 2 Minutes, Every 4 hours PRN, nausea, vomiting, 1st Line if he can't tolerate PO or prefers it, Starting on 09/13/21 at 1338 Given 09/14/2021 7:20 AM CDT 4 mg Given 09/13/2021 9:24 PM CDT 4 mg ondansetron ODT (ZOFRAN-ODT) disintegrating tablet 4 mg 4 mg, oral, Every 4 hours PRN, nausea, vomiting, 1st Line if he has no IV Access or Prefers it, Starting on 09/13/21 at 1338 oxyCODONE-acetaminophen (PERCOCET) 5-325 mg per tablet 2 tablet 2 tablet, oral, Every 4 hours PRN, 1st line for pain, If he has No IV Access, Starting on 09/13/21 at 1339, Indications: PainIndications:Pain pantoprazole DR (PROTONIX) extended release tablet 40 mg 40 mg, oral, Daily, First dose on 09/12/21 at 0900, Do not crush, chew, cut, dissolve, open or otherwise manipulate tablet/capsule., Indications: Treatment of Non-Bleeding Gastric DisorderIndications:Treatment of Non-Bleeding Gastric Disorder Given 09/15/2021 9:13 AM CDT 40 mg Given 09/14/2021 10:19 AM CDT 40 mg Given 09/13/2021 8:48 AM CDT 40 mg phenoL (CHLORASEPTIC) 1.4 % oral spray 1 spray 1 spray, mouth/throat, Every 4 hours PRN, sore throat, 1st Line, Starting on 09/14/21 at 1207 pravastatin (PRAVACHOL) tablet 40 mg 40 mg, oral, Nightly, First dose (after last modification) on 09/12/21 at 2100 Given 09/13/2021 9:27 PM CDT 40 mg Given 09/12/2021 9:35 PM CDT 40 mg prochlorperazine (COMPAZINE) injection 5 mg 5 mg, intravenous, Administer over 2 Minutes, Every 6 hours PRN, nausea, vomiting, 2nd Line, Starting on Tue09/12/21 at 0847 Given 09/14/2021 2:28 AM CDT 5 mg Given 09/13/2021 3:36 PM CDT 5 mg Given 09/12/2021 7:24 PM CDT 5 mg prochlorperazine (COMPAZINE) tablet 5 mg 5 mg, oral, 4 times daily PRN, nausea, vomiting, 2nd line if he doesn't have IV Access or prefers it to IV, Starting on Tue09/13/21 at 1338 sodium chloride (OCEAN) 0.65 % nasal spray 1 spray 1 spray, each nostril, As needed, congestion, Starting on Tue09/15/21 at 0850 Given 09/15/2021 9:21 AM CD T 1 spray sodium chloride 0.9% flush 0.5-20 mL 0.5-20 mL, intra-catheter, Every 8 hours scheduled, First dose on Tue09/12/21 at 0030, Flush volume based on line type and size. Given 09/15/2021 5:05 AM CDT 5 mL Given 09/14/2021 8:55 PM CDT 5 mL Given 09/14/2021 12:46 PM CDT 10 mL sodium chloride 0.9% flush 0.5-20 mL 0.5-20 mL, intra-catheter, As needed, line care, Starting on Tue09/11/21 at 2356, Flush volume based on line type and size. Flush before and after each use. sodium chloride 0.9% infusion 100 mL/hr, intravenous, Continuous, Starting on 09/12/21 at 0030 New Bag 09/14/2021 4:00 PM CDT 100 mL/hr 100 mL/hr New Bag 09/14/2021 2:36 AM CDT 100 mL/hr 100 mL/hr New Bag 09/13/2021 2:13 PM CDT 100 mL/hr 100 mL/hr documented in this encounter Discontinued Medications Medication Sig Discontinue Reason Start Date End Da te amLODIPine (NORVASC) 5 mg tablet Take 5 mg by mouth 2 (two) times a day 10/14/2019 09/12/2021 loratadine (CLARITIN) 10 mg tabletIndications:liqui d gel Take 10 mg by mouth daily 09/12/2021 lisinopriL (PRINIVIL,ZESTRIL) 20 mg tablet TK 1 T PO D 03/24/2020 09/13/2021 lisinopriL (PRINIVIL,ZESTRIL) 40 mg tablet Take 40 mg by mouth daily Stop Taking at Discharge 08/21/2021 09/15/2021 documented as of this encounter Historical Medications * This list may reflect changes made after this encounter. cetirizine (ZyrTEC) 5 mg chewable tablet Take 5 mg by mouth daily amLODIPine (NORVASC) 10 mg tablet Take 10 mg by mouth daily 09/09/2021 omeprazole (PriLOSEC) 40 mg capsule Take 40 mg by mouth daily SITagliptin (JANUVIA) 25 mg tabletIndications :type 2 diabetes mellitus Take 25 mg by mouth daily montelukast (SINGULAIR) 10 mg tablet Take 10 mg by mouth nightly lisinopriL (PRINIVIL,ZESTRIL ) 40 mg tablet Take 40 mg by mouth daily 08/21/2021 09/15/2021 added in this encounter Active and Recently Administered Medications Times are shown in CDT. Scheduled Medication Order 09/13/2021 09/14/2021 09/15/2021 amLODIPine (NORVASC) tablet 10 mg 10 mg, oral, Daily, First dose (after last modification) on 09/13/21 at 0900 0848 (Given - Provider: Katlyn Hernandez RN) 1020 (Given - Provider: Katlyn Hernandez RN) 0914 (Given - Provider: Nabila Navarro RN) enoxaparin (LOVENOX) syringe 40 mg 40 mg, subcutaneous, Daily (for enoxaparin), First dose on 09/12/21 at 2100, Indications: Deep Vein Thrombosis Prevention 2126 (Given - Provider: Marla Nash RN) 2057 (Given - Provider: Marla Nash RN) lisinopriL (PRINIVIL,ZESTRIL) tablet 20 mg 20 mg, oral, Daily, First dose on 09/12/21 at 0900 0848 (Given - Provider: Katlyn Hernandez RN) 1019 (Given - Provider: Katlyn Hernandez RN) 0913 (Given - Provider: Nabila Navarro RN) montelukast (SINGULAIR) tablet 10 mg 10 mg, oral, Nightly, First dose on 09/12/21 at 2100 2126 (Given - Provider: Marla Nash RN) 2053 (Hold - Provider: Marla Nash RN - Reason: Other - Comment: pt. with T-Brenda Chicas Aware) pantoprazole DR (PROTONIX) extended release tablet 40 mg 40 mg, oral, Daily, First dose on 09/12/21 at 0900, Do not crush, chew, cut, dissolve, open or otherwise manipulate tablet/capsule., Indications: Treatment of Non-Bleeding Gastric Disorder 0848 (Given - Provider: Katlyn Hernandez RN) 1019 (Given - Provider: Katlyn Hernandez RN) 0913 (Given - Provider: Nabila Navarro, BRYANT) pravastatin (PRAVACHOL) tablet 40 mg 40 mg, oral, Nightly, First dose (after last modification) on 09/12/21 at 2100 2126 (Given - Provider: Marla Nash RN) 2053 (Hold - Provider: Marla Nash RN - Reason: Other - Comment: pt. with NGT-Brenda Chicas Aware) sodium chloride 0.9% flush 0.5-20 mL 0.5-20 mL, intra-catheter, Every 8 hours scheduled, First dose on 09/12/21 at 0030, Flush volume based on line type and size. 0551 (Not Given - Provider: Angela Ghosh RN - Reason: IV Infusing)164 (Given - Provider: Katlyn Hernandez RN)2134 (Given - Provider: Marla Nash RN) 0503 (Given - Provider: Marla Nash RN)1246 (Given - Provider: Katlyn Hernandez RN)2055 (Given - Provider: Marla Nash RN) 0505 (Given - Provider: Marla Nash RN)1301 (Not Given - Provider: Nabila Navarro RN - Reason: IV Infusing) Continuous Medication Order 09/13/2021 09/14/2021 09/15/2021 dextrose 5% and sodium chloride 0.9% infusion (premix) 100 mL/hr, intravenous, Continuous, Starting on 09/14/21 at 2100 2105 (New Bag - Provider: Marla Nash RN) 0729 (New Bag - Provider: Marla Nash RN)0914 (Canceled Entry - Provider: Nabila Navarro RN)1953 (Due: Stopped) sodium chloride 0.9% infusion (CANCELED) 100 mL/hr, intravenous, Continuous, Starting on 09/12/21 at 0030 1209 (New Bag - Provider: Katlyn Hernandez RN)1413 (New Bag - Provider: Katlyn Hernandez RN) 0236 (New Bag - Provider: Marla Nash RN)1600 (New Bag - Provider: Katlyn Hernandez RN)2019 (Due: Stopped - Provider: Brenda Chicas NP) PRN Medication Order 09/13/2021 09/14/2021 09/15/2021 acetaminophen (TYLENOL) tablet 650 mg 650 mg, oral, Every 4 hours PRN, fever, headaches, fever greater than 38.3 C, Starting on 09/12/21 at 0004, Indications: Fever, Pain al & mag hydroxide simethicone-diphenhydrami nj-lekhzaovg-scwszibf (MAGIC MOUTHWASH) suspension 1-1-1-1 15 mL, swish & swallow, Every 4 hours PRN, mucositis, other, Sore Throat 2nd Line, Starting on 09/14/21 at 1207 dextrose (D10W) 10% bolus 250 mL(Linked Group 1) 250 mL, intravenous, at 1,000 mL/hr, Administer over 15 Minutes, Every 15 min PRN, blood glucose less than 70 mg/dL and UNABLE to swallow/take PO glucose/juice., Starting on Tue09/14/21 at 2017, After treatment for hypoglycemia, recheck BG followed by treatment every 15 minutes until the BG is greater than 100 mg/dL. Then check BG 1 hour post treatment. If BG is less than 100 mg/dL, repeat Q15 minute BG checks and treatment. Call MD for each episode of hypoglycemia., Indications: hypoglycemic disorder dextrose oral liquid liquid 15 g(Linked Group 1) 15 g, oral, Every 15 min PRN, low blood sugar, blood glucose less than 70 mg/dL, Starting on Tue09/14/21 at 2017, If patient is alert and able to eat/drink, give 15 gm glucose or one juice (4 fluid ounces) NOT ORANGE JUICE. After treatment for hypoglycemia, recheck BG followed by treatment every 15 minutes until the BG is greater than 100 mg/dL. Then check BG 1 hour post-treatment. If BG is less than 100 mg/dL, repeat Q15 minute BG checks and treatment. Call MD for each episode of hypoglycemia., Indications: hypoglycemic disorder dicyclomine (BENTYL) tablet 20 mg 20 mg, oral, 4 times daily PRN, abdominal discomfort, cramping, 1st Line, Starting on 09/12/21 at 0847 glucagon injection 1 mg 1 mg, intramuscular, Every 30 min PRN, low blood sugar, blood glucose less than 70 mg/dL AND no IV access AND unable to take PO glucose/juice., Starting on Tue09/14/21 at 2017, After Glucagon is administered, position patient on side if possible to avoid aspiration. Obtain IV access. Follow glucagon treatment with glucose treatment or IV dextrose. After treatment for hypoglycemia, recheck BG followed by treatment every 15 minutes until the BG is greater than 100 mg/dL. Then check BG 1 hour post treatment. If BG is less than 100 mg/dL, repeat Q15 minute BG checks and treatment. Call MD for each episode of hypoglycemia. Reconstitute 1 mg vial with 1 mL SWFI. Use immediately following reconstitution. HYDROmorphone (DILAUDID) injection 2 mg 2 mg, intravenous, Administer over 2 Minutes, Every 2 hours PRN, 1st line for pain, Starting on 09/12/21 at 0428 0648 (Given - Provider: Angela Ghosh, RN)0845 (Given - Provider: Katlyn Hernandez RN)1039 (Given - Provider: Katlyn Hernandez RN)1409 (Given - Provider: Katlyn Hernandez RN)1609 (Given - Provider: Katlyn Hernandez, BRYANT)1836 (Given - Provider: Katlyn Hernandez RN)2127 (Given - Provider: Marla Nash RN)2335 (Not Given - Provider: Marla Nash RN - Reason: Patient/family refused - Comment: Return witnessed by BRYANT Solorio) 0228 (Given - Provider: Marla Nash RN)0752 (Given - Provider: Katlyn Hernandez RN)1019 (Given - Provider: Katlyn Hernandez RN)1245 (Given - Provider: Katlyn Hernandez RN)1451 (Given - Provider: Katlyn Hernandez RN)1703 (Given - Provider: Katlyn Hernandez RN)1919 (Given - Provider: Katlyn Hernandez RN)2324 (Given - Provider: Marla Nash RN) 0326 (Given - Provider: Marla Nash RN)0725 (Given - Provider: Marla Nash RN)0921 (Given - Provider: Nabila Navarro, BRYANT)1134 (Given - Provider: Nabila Navarro, BRYANT)1348 (Given - Provider: Nabila Navarro, BRYANT) iohexoL (OMNIPAQUE) 300 mg iodine/mL injection solution 200 mL (COMPLETED) 200 mL, oral, Once in imaging, contrast, Starting on 09/13/21 at 1030, For 1 dose 1031 (Contrast Given - Provider: Durga Blair, RT) loratadine (CLARITIN) tablet 10 mg 10 mg, oral, Daily PRN, allergies, Starting on 09/14/21 at 2000, Indications: liquid gel ondansetron (ZOFRAN) injection 4 mg (CANCELED) 4 mg, intravenous, Administer over 2 Minutes, Every 4 hours PRN, nausea, vomiting, 1st Line, Starting on 09/12/21 at 0900 0652 (Given - Provider: Angela Ghosh RN)1209 (Given - Provider: Katlyn Hernandez, BRYANT) ondansetron (ZOFRAN) injection 4 mg 4 mg, intravenous, Administer over 2 Minutes, Every 4 hours PRN, nausea, vomiting, 1st Line if he can't tolerate PO or prefers it, Starting on 09/13/21 at 1338 2124 (Given - Provider: Marla Nash, BRYANT) 0720 (Given - Provider: Marla Nash RN) ondansetron ODT (ZOFRAN-ODT) disintegrating tablet 4 mg 4 mg, oral, Every 4 hours PRN, nausea, vomiting, 1st Line if he has no IV Access or Prefers it, Starting on 09/13/21 at 1338 oxyCODONE-acetaminophen (PERCOCET) 5-325 mg per tablet 2 tablet 2 tablet, oral, Every 4 hours PRN, 1st line for pain, If he has No IV Access, Starting on 09/13/21 at 1339, Indications: Pain phenoL (CHLORASEPTIC) 1.4 % oral spray 1 spray 1 spray, mouth/throat, Every 4 hours PRN, sore throat, 1st Line, Starting on 09/14/21 at 1207 prochlorperazine (COMPAZINE) injection 5 mg 5 mg, intravenous, Administer over 2 Minutes, Every 6 hours PRN, nausea, vomiting, 2nd Line, Starting on 09/12/21 at 0847 1536 (Given - Provider: Katlyn Hernandez, BRYANT) 0228 (Given - Provider: Marla Nash RN) prochlorperazine (COMPAZINE) tablet 5 mg 5 mg, oral, 4 times daily PRN, nausea, vomiting, 2nd line if he doesn't have IV Access or prefers it to IV, Starting on 09/13/21 at 1338 sodium chloride (OCEAN) 0.65 % nasal spray 1 spray 1 spray, each nostril, As needed, congestion, Starting on Tue09/15/21 at 0850 0921 (Given - Provider: Nabila Navarro RN) sodium chloride 0.9% flush 0.5-20 mL 0.5-20 mL, intra-catheter, As needed, line care, Starting on Tue09/11/21 at 2356, Flush volume based on line type and size. Flush before and after each use. Linked Groups Order Group 1: dextrose oral liquid liquid 15 gJump to med 15 g, oral, Every 15 min PRN, low blood sugar, blood glucose less than 70 mg/dL, Starting on Tue09/14/21 at 2018, If patient is alert and able to eat/drink, give 15 gm glucose or one juice (4 fluid ounces) NOT ORANGE JUICE. After treatment for hypoglycemia, recheck BG followed by treatment every 15 minutes until the BG is greater than 100 mg/dL. Then check BG 1 hour post-treatment. If BG is less than 100 mg/dL, repeat Q15 minute BG checks and treatment. Call MD for each episode of hypoglycemia., Indications: hypoglycemic disorder Or dextrose (D10W) 10% bolus 250 mLJump to med 250 mL, intravenous, at 1,000 mL/hr, Administer over 15 Minutes, Every 15 min PRN, blood glucose less than 70 mg/dL and UNABLE to swallow/take PO glucose/juice., Starting on Tue09/14/21 at 2018, After treatment for hypoglycemia, recheck BG followed by treatment every 15 minutes until the BG is greater than 100 mg/dL. Then check BG 1 hour post treatment. If BG is less than 100 mg/dL, repeat Q15 minute BG checks and treatment. Call MD for each episode of hypoglycemia., Indications: hypoglycemic disorder documented in this encounter Orders Medications Ordered That Romel ht Not Have Been Administered Count Last Ordered Date First Ordered Date al & mag hydroxide uvcnyvngfzd-tononfvlccbqtji-mltdueazm-nyst atin (MAGIC MOUTHWASH) suspension 1-1-1-1 1 09/14/2021 dextrose (D10W) 10% bolus 250 mL 2 09/15/19 22 09/12/2021 dextrose oral liquid liquid 15 g 2 09/15/19 22 09/12/2021 glucagon injection 1 mg 2 09/14/2021 04/ loratadine (CLARITIN) tablet 10 mg 3 202109/11/2021 phenoL (CHLORASEPTIC) 1.4 % oral spray 1 spray 1 09/14/2021 ondansetron ODT (ZOFRAN-ODT) disintegrating tablet 4 mg 1 09/13/2021 oxyCODONE-acetaminophen (PER COCET) 5-325 mg per tablet 2 tablet 1 09/13/2021 prochlorperazine (COMPAZINE) tablet 5 mg 1 09/13/2021 acetaminophen (TYLENOL) tablet 650 mg 2 09/11/2021 bisacodyl EC (DULCOLAX EC) tablet 10 mg 1 0 09/12/2021 insulin lispro (HumaLOG, ADM ELOG) 100 unit/mL injection 0-10 Units 1 09/12/2021 pravastatin (PRAVACHOL) tablet 40 mg 1 08/16 atorvastatin (LIPITOR) tablet 20 mg 1 09/11 sodium chloride 0.9% flush 0.5-20 mL 1 08/15 Lab Orders Without Results Count Last Ordered D ate First Ordered Date POCT GLUCOSE DEVICE 1 09/12/2021 Nursing Count Last Ordered Date First Orde red Date WEIGH PATIENT 1 09/11/2021 Consult Count Last Ordered Date First Orde red Date IP CONSULT TO GENERAL SURGERY 1 09/12/2021 documented in this encounter Care Teams Leather Scrubber Relationship Specialty Start Date End Date Pankaj Rosenberg MD [address] [place] [address] PCP - General 09/11/21 documented as of this encounter
--- OUTSIDE RECORDS SUMMARY | 2024-05-13 11:11 | XMS_ITS | Encounter Summary ---
Author Organization [facility] Address [address] [place] [address] Care Team Providers Care Brick Cleaner Name Role Phone Charles Vogel MD Primary Care Provider [phone]- [phone] Encounter Details Date Type Department Care Team (Late st Contact Info) Description 10/24/2019 Telephone [facility] ENT Specialists - [facility] [address] [place] [address] Lacy Cordero MA Social History Tobacco Use Types Packs/Day Years Used Date Smoking Tobacco: Never Smokeless Tobacco: Current Alcohol Use Standard Drinks/Week Comments Yes 0 (1 standard drink = 0.6 oz pur e alcohol) Sex and Gender Information Value Date Recorded Sex Assigned at Not on file 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 * Telephone Encounter - Lacy Cordero MA - 10/24/2019 2:55 PM CDT ----- Message from Louann Zhu DO sent at 10/24/2019 2:42 PM CDT ----- Please call: [place] and pe[place] were very significantly positive, some grass allergy, continue current treatment until the end of summer then may quit documented in this encounter Plan of Treatment Not on file documented as of this encounter Visit Diagnoses Not on filedocumented in this encounter Care Teams Brick Cleaner Relationship Specialty Start Date End Date Charles Vogel MD [address] [place] [address] PCP - General 05/21/19 09/10/21 documented as of this encounter
--- OUTSIDE RECORDS SUMMARY | 2024-05-13 11:11 | XMS_ITS | Encounter Summary ---
Author Organization [facility] Address [address] [place] [address] Phone Care Team Providers Care Starch Crab Name Role Phone Charles Vogel MD Primary Care Provider [phone]- [phone] Encounter Details Date Type Department Care Team (Late st Contact Info) Description 07/14/[address] 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 Jerez) his EMG was negative. If he is doing well with therapy he should continue, but if he is struggling Dr. Jerez would like him to come in the office to see her. STOCK RANCHER * Telephone Encounter - Winsome Echevarria RMA - 07/14/2020 9:38 AM CST ----- Message from Jesusita Jerez MD sent at 07/11/2020 7:31 AM LIVESTOCK RANCHER ----- Looks like the nerve studies were negative. 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 If he is still struggling, then he should come back in and see me. ----- Message ----- From: [facility] Incoming Scans - Cdr Via Onbase [[id number]] Sent: 07/08/2020 4:05 PM LIVESTOCK RANCHER To: Jesusita Jerez MD STOCK RANCHER documented in this encounter Plan of Treatment Not on file documented as of this encounter Visit Diagnoses Not on filedocumented in this encounter Care Teams Starch Crab Relationship Specialty Start Date End Date Charles [place] [address] [place] [address] PCP - General 05/21/19 09/10/21 documented as of this encounter
--- OUTSIDE RECORDS SUMMARY | 2024-05-13 11:11 | XMS_ITS | Encounter Summary ---
Author Organization [facility] Healthcare Address [address] [place] [address] Care Team Providers Care Proofer Apprentice Name Role Phone Charles Vogel MD Primary Care Provider [phone]- [phone] Encounter Details Date Type Department Care Team (Late st Contact Info) Description 12/31/2019 10:20 AM CDT [address] [address] Louann Zhu, DO [address] [place] [address] [place] [address] Preoperative clearance Discharge Disposition: Discharge to home or self care Social History Tobacco Use Types Packs/Day Years Used Date Smoking Tobacco: Never Smokeless Tobacco: Current Snuff Alcohol Use Standard Drinks/Week Comments Yes 0 (1 standard drink = 0.6 oz pur e alcohol) Sex and Gender Information Value Date Recorded Sex Assigned at Not on file 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 Gender Identity Not on file Sexual Orientation Not on file documented as of this encounter Discharge Disposition Disposition Code Departure Means Destination Discharge to home or self care documented in this encounter Plan of Treatment Not on file documented as of this encounter Procedures Procedure Name Priority Date/Time Associated Diagnosis Comments COVID-19 CORONAVIRUS RNA STAT 12/31/2019 10:18 AM CDT Preoperative clearance documented in this encounter Results * COVID-19 Coronavirus RNA Nasopharyngeal (12/31/2019 10:18 AM CDT) COVID-19 RNA Not Detected YUKO SALCEDO (TASHI) Comment: Interpretive Data Testing performed at [facility]. The 2019-Novel Coronavirus Assay (COVID-19) Real Time RT-PCR assay [...] last revised on 2019. Testing performed by: [facility], [address] [place]., [address] Nasopharyngeal 12/31/2019 10 :18 AM CDT 12/31/2019 12:52 PM CDT Narrative SENAIT SALCEDO (TASHI) - 12/31/2019 8:49 PM CDT Is the patient experiencing any symptoms consistent with COVID (eg. Fever, cough, shortness of breath)?->No What is the reason for testing?->Screening prior to scheduled (>12 hr) surgery or procedure Louann Zhu DO LAB MICROBIOLOGY - GENERAL O RDERABLES Final Result SENAIT SALCEDO (TASHI) [address] [facility] Department of [place] [address] documented in this encounter Visit Diagnoses Diagnosis Preoperative clearance Unspecified pre-operative examination documented in this encounter Care Teams Proofer Apprentice Relationship Specialty Start Date End Date Charles Vogel MD [address] [place] [address] PCP - General 05/21/19 09/10/21 documented as of this encounter
--- OUTSIDE RECORDS SUMMARY | 2024-05-13 11:11 | XMS_ITS | Encounter Summary ---
Author Organization [facility] Healthcare Address [address] [place] [address] Care Team Providers Care Business Systems Developer Name Role Phone Charles Vogel MD Primary Care Provider [phone]- [phone] Encounter Details Date Type Department Care Team (Latest Contact Info) Description 01/02/2020 9:10 AM CDT - 01/02/2020 2:27 PM CDT Hospital Encounter [facility] Operating Room [address] [place] [address] Louann Zhu, DO [address] [place] [address] DR GUTIERRES [address] [address] Preoperative clearance (Primary Dx); Deviated nasal septum; Hypertrophy of inferior nasal turbinate Discharge Disposition: Discharge to home or self care Social History Tobacco Use Types Packs/Day Years Used Date Smoking Tobacco: Never Smokeless Tobacco: Current Snuff Alcohol Use Standard Drinks/Week Comments Yes 0 (1 standard drink = 0.6 oz pur e alcohol) Sex and Gender Information Value Date Recorded Sex Assigned at Not on file 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 Gender Identity Not on file Sexual Orientation Not on file documented as of this encounter Last Filed Vital Signs Vital Sign Reading Time Taken Comments Blood Pressure 125/62 01/02/2020 2:23 PM CDT Pulse 80 01/02/2020 2:23 PM CDT Temperature 36.8 ??C (98.3 ??F) 01/02/2020 1 2:35 PM CDT Respiratory Rate 18 01/02/2020 2:23 PM CDT Oxygen Saturation 99% 01/02/2020 2:23 PM CDT Inhaled Oxygen Concentration - - Weight 114.6 kg (252 lb 10.4 oz) 01/02/2020 9:20 AM CDT Height 180.3 cm (5' 11 ) 01/02/2020 9:20 AM CDT Body Mass Index 35.24 01/02/2020 9:20 AM CDT documented in this encounter Discharge Diagnoses Diagnosis Allergic rhinitis, unspecified - ALLERGIC RHINITIS, UNSPECIFIED Deviated nasal septum - DEVIATED NASAL SEPTUM Hypertrophy of nasal turbinates - HYPERTROPHY OF NASAL TURBINATES Essential (primary) hypertension - ESSENTIAL (PRIMARY) HYPERTENSION Unspecified essential hypertension Obesity, unspecified - OBESITY, UNSPECIFIED Body mass index (BMI) 35.0-35.9, adult - BODY MASS INDEX (BMI) 35.0-35.9, ADULT Other [facility]p (current) drug therapy - OTHER 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 ?? Pain: You [...] nose more comfortable after surgery. These sprays ([place], Dor[place], Simple Saline) are nuhb-fbf-irzycit medications and can be purchased in any [...] using Afrin Who to Call After Surgery: [facility] [place]: Dr. Louann Zhu, [address], [address] [place] [address] P: Exchange: [phone] * Attachments The following attachments cannot be sent through Care Everywhere. * General Anesthesia (Discharge Care) (Malian) * Hydrocodone/Acetaminophen (By mouth) (Malian) * Amoxicillin/Clavulanate Potassium (By mouth) (Malian) documented in this encounter Medications at Time [...] documented in this encounter H&P Notes * Marko Louann DO Bret - 01/02/2020 10:19 AM CDT I have [...] worse this week. Alelrgy blood testing: Grass, [place] and Pecan Last seen: 10/22/2019 Allergic rhinitis, unspecified seasonality, unspecified trigger (Primary) Assessment & Plan: Nasal saline spray (Simply saline, Little Remedies, [place], [place]) 2 second sprays or 2 squeezes into [...] trigger (Primary) Assessment & Plan: Referral to [facility] - Dr. Fuchs Orders: - Ambulatory referral [...] #15 blade was used to make a [place] incision on the left anterior nasal septum. [...] that you and your doctor have chosen [facility] for your surgery. We hope that the [...] contents) 01/02/2020 11:38 AM CDT Narrative PATHOLOGY [facility] ([place]) - 01/07/2020 12:33 PM CDT EPIC results best viewed via link to PDF [facility] Department of Pathology [address] [place] [address] Final Report Patient Name: ??SHERI BARLOWKelyl Address: ??[address] [place] [address], ??[place], [place] [address] Gender: ??M : ??1995 (Age: 24) Service: ??Surgery Location: ??[facility] Hospital #: ??[id number] Patient Type: ??[facility] Accession # ?[id number] Taken: ??01/02/2020 Received: ??01/02/2020 Accessioned: ??01/02/2020 Reported: [...] determined by the Surgical Pathology Department at [facility] as part of an ongoing quality engineer program and in compliance with federally mandated [...] characteristics determined by the Surgical Pathology Department [facility]. ??It has not been cleared or approved by the U. S. Food and Drug Administration. us Louann Zhu DO LAB PATHOLOGY ORDERABLES Fin al Result PATHOLOGY [facility] [address] [place] [address] * COVID-19 Coronavirus RNA Nasopharyngeal (12/31/2019 10:18 AM CDT) COVID-19 RNA Not Detected [facility] ([place]) Comment: Interpretive Data Testing performed at University [...] last revised on 2019. Testing performed by: [facility], [address] [place]., [address] Nasopharyngeal 12/31/2019 10 :18 AM CDT 12/31/2019 [...] [facility] [place] [address] documented in this encounter Visit Diagnoses Diagnosis Preoperative clearance- Primary Unspecified pre-operative examination Deviated nasal septum Hypertrophy of inferior nasal turbinate Preoperative clearance Unspecified pre-operative examination documented in this encounter Admitting Diagnoses Diagnosis [...] 01/02/2020 10:41 AM CDT 100 mL /hr oxymetazoline (AFRIN) 0.05 % nasal spray 2 [...] Given 01/02/2020 10:12 AM CDT 2 sprays documented in this encounter Discontinued Medications Medication [...] 01/02/2020 Lactated Ringer's (LR) infusion 1 0 lidocaine-EPINEPHrine (XYLOC DORINDA with EPI) 1 %-1:200,000 preservative free injection 1 01/02/2020 meperidine (DEMEROL) preserv ative free injection 12.5 mg 1 01/02/2020 midazolam (VERSED) 1 mg/mL p reservative free injection - ADS Override Pull 1 01/02/2020 naloxone (NARCAN) 0.4 mg/mL injection 0.04-0.4 mg 1 01/02/2020 ondansetron (ZOFRAN) injection 4 mg 1 01/01 oxymetazoline (AFRIN) 0.05 % nasal spray 1 01/02/2020 sodium chloride 0.9% flush 0.5-20 mL 2 12/14 Diet Count Last Ordered Date First Orde red Date ADULT DISCHARGE DIET 1 01/02/2020 Nursing Count Last Ordered Date First Orde red Date DISCHARGE CALL PROVIDER 5 01/02/2020 DISCHARGE DRESSING 1 01/02/2020 WEIGHT RESTRICTIONS 1 01/02/2020 documented in this encounter Care Teams Business Systems Developer Relationship Specialty Start Date End Date Charles Vogel MD [address] [place] [address] PCP - General 05/21/19 09/10/21 documented as of this encounter
--- OUTSIDE RECORDS SUMMARY | 2024-05-13 11:11 | XMS_ITS | Encounter Summary ---
Author Organization [facility] Address [address] [place] [address] Phone Care Team Providers Care Blunger Name Role Phone Charles Vogel MD Primary Care Provider [phone]- [phone] Reason for Referral * Neurology (Routine) - Closed Specialty Diagnoses / Procedures Referred By Contac t Referred To Contact Diagnoses Numbness and tingling in both hands Procedures EMG/NCV -Please select the performing region: [facility] (All Locations); Procedure performed at: [facility] Ortho Physiatry Jesusita Jerez MD Phone: tel: fax: [facility] (All Locations) Referral ID Status Reason Start Date Expiration Date Visits Re quested Visits Authorized [id number] Closed 06/11/2020 07/11/2021 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 Reason for Visit * Reason Comments Pain Pain Encounter Details Date Type Department Care Team (Latest Contact Info) Description 06/11/2020 1:20 PM LIME KILN WORKER HELPER Office Visit [facility] Orthopaedic Surgery [address] [place] [address] [place] [address] [place] [address] Numbness and tingling in both hands (Primary Dx); Lateral epicondylitis of both elbows; Arthrogryposis Social History Tobacco Use Types Packs/Day Years Used Date Smoking Tobacco: Never Smokeless Tobacco: Current Snuff Alcohol Use Standard Drinks/Week Comments Yes 0 (1 standard drink = 0.6 oz pur e alcohol) SOCIAL Sex and Gender Information Value Date Recorded Sex Assigned at Not on file 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 Gender Identity Not on file Sexual Orientation Not on file documented as of this encounter Last Filed Vital Signs Vital Sign Reading Time Taken Comments Blood Pressure - - Pulse - - Temperature - - Respiratory Rate - - Oxygen Saturation - - Inhaled Oxygen Concentration - - Weight 109.8 kg (242 lb) 06/11/2020 2:20 PM LIME KILN WORKER HELPER Height 180.3 cm (5' 11 ) 06/11/2020 2:20 PM LIME KILN WORKER HELPER Body Mass Index 33.75 06/11/2020 2:20 PM LIME KILN WORKER HELPER documented in this encounter Progress Notes * Jesusita Jerez MD - 06/11/2020 1:20 PM CST NEW PATIENT VISIT CHIEF COMPLAINT Pain of the Left Hand and Pain of the Right Hand HISTORY OF PRESENT ILLNESS Chuck Barlow is a 25-year-old male who presents with a past medical history of arthrogryposis. He states that he has had increasing pain from his elbow that radiates down his forearms into his fingers.This wakes him up at night and states that he has pain more than numbness or tingling. He states that the pain is worst in his middle and ring fingers and worse with activity. He states that is worsened with video games and using his phone and texting. 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 He does note history of thoracic and lumbar spine issues and some radiating numbness. PAST MEDICAL HISTORY He has a past medical history of Allergic rhinitis and Hypertension. PAST SURGICAL HISTORY He has a past surgical history that includes Repair gastroschisis / omphalocele (1994) and Septoplasty (2019). INITIAL REVIEW OF MEDICATIONS He has a current medication list which includes the following prescription(s): amlodipine, atorvastatin, lisinopril, and loratadine. DRUG ALLERGIES He has No Known Allergies. SOCIAL HISTORY He reports that he has never smoked. His smokeless tobacco use includes snuff. He reports current alcohol use. He reports that he does not use drugs. FAMILY HISTORY His family history includes Seizures in his sister. REVIEW OF SYSTEMS Review of Systems All other systems reviewed and are negative. PHYSICAL EXAMINATION The patient is in no acute distress and is alert. He is 5 feet 11 inches tall and weighs pounds. His face is symmetric and atraumatic. There is no increase work of breathing. His mood and affect are appropriate. The patient's spine is grossly straight and He walks with a normal gait. This is a well-developed, well-nourished, age appropriate patient. He has bilateral internal rotation of his arms right greater than left and states pain in his lateral elbow on palpation. Is difficult to elicit pain with resisted extension of his wrist and middle finger secondary to his condition. He denies any numbness or tingling all assisted with Tinel at the cubital tunnel or carpal tunnel and negative Durkan's bilaterally. His 2 point discrimination is 5/5/5/5/5 bilaterally. He is warm and well perfused distally REVIEW OF X-RAYS/STUDIES None performed today IMPRESSION/DIAGNOSIS/PLAN This is a 25-year-old male with arthrogryposis who presents today with pain in his bilateral elbow that radiates down his forearms significant for lateral epicondylitis. We will treat him with therapy for lateral epicondylitis as well as provide bilateral wrist braces today. Additionally given his numbness and tingling down his bilateral upper extremities we will obtain and EMG. Notably he also has thoracic and lumbar spine issues and a history of a cervical spine fracture and this will help better elucidate the source of his upper extremity numbness and tingling. We will call him with the results of his nerve studies and discuss further treatment as per the results. All questions were answered and the patient and his Aunt who was present for the entirety of the visit were in understanding and agreement with the plan of care. Jesusita Jerez M.D. Business Process Consultant Hand and Upper Extremity [facility] Orthoped[facility] Jesusita Jerez MD dictating using Fluency Direct. Passenger Representative variances may occur. I was present for the critical portion of the history, physical examination and participated in theradiographic review and medical decision making on this patient. I agree with this report which wasgenerated with the assistance of Dr. Santos. KILN WORKER HELPER documented in this encounter Plan of Treatment Not on file documented as of this encounter Results * EMG/NCV -Please select the performing region: [facility] (All Locations); Procedure performed at: [facility] Ortho Physiatry (06/23/2020 9:09 AM LIME KILN WORKER HELPER) Anatomical Region Laterality Modality Other us Jesusita Jerez MD NEUROLOGY ORDERABLES Final Re sult documented in this encounter Visit Diagnoses Diagnosis Numbness and tingling in both hands- Primary Lateral epicondylitis of both elbows Arthrogryposis Other specific muscle disorders documented in this encounter Discontinued Medications Medication Sig Discontinue Reason Start Date End Da te lisinopriL (PRINIVIL,ZESTRIL) 10 mg tablet Take 20 mg by mouth daily Other 10/15/2019 06/11/2020 HYDROcodone-acetaminophe n (NORCO) 5-325 mg per tabletIndications:Pain Take 1 tablet by mouth every 6 (six) hours as needed for pain for up to 15 doses Other 01/02/2020 06/11/2020 documented as of this encounter Historical Medications * This list may reflect changes made after this encounter. atorvastatin (LIPITOR) 20 mg tablet Take by mouth nightly 05/19/2020 lisinopriL (PRINIVIL,ZESTRIL ) 20 mg tablet TK 1 T PO D 03/24/2020 2 added in this encounter Care Teams Blunger Relationship Specialty Start Date End Date Charles Vogel MD [address] [place] [address] PCP - General 05/21/19 09/10/21 documented as of this encounter
--- OUTSIDE RECORDS SUMMARY | 2024-05-13 11:11 | XMS_ITS | Encounter Summary ---
Author Organization [facility] Address [address] [place] [address] Care Team Providers Care Tire Installer Name Role Phone Charles Vogel MD Primary Care Provider [phone] Reason for Referral * Diagnostic Imaging (Routine) - Closed Specialty Diagnoses / Procedures Referred By Contac t Referred To Contact Radiology Diagnoses Allergic rhinitis, unspecified seasonality, unspecified trigger Procedures CT Sinus Stealth WO Contrast Louann Zhu DO Phone: tel: fax: [facility] [address] [place] [address] Referral ID Status Reason Start Date Expiration Date Visits Re quested Visits Authorized [id number] Closed 10/22/2019 04/21/2020 1 1 Reason for Visit * Reason Comments Sinusitis allergies Encounter Details Date Type Department Care Team (Late st Contact Info) Description 10/22/2019 11:00 AM CDT Office Visit [facility] ENT Specialists - [facility] [address] [place] [address] Louann Zhu DO [address] [place] [address] BHAVIK Ramirez SARAH [address] [place] [address] Allergic rhinitis, unspecified seasonality, unspecified trigger (Primary Dx) Social History Tobacco Use Types Packs/Day Years Used Date Smoking Tobacco: Never Smokeless Tobacco: Current Alcohol Use Standard Drinks/Week Comments Yes 0 (1 standard drink = 0.6 oz pur e alcohol) Sex and Gender Information Value Date Recorded Sex Assigned at Not on file 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 Gender Identity Not on file Sexual Orientation Not on file documented as of this encounter Last Filed Vital Signs Vital Sign Reading Time Taken Comments Blood Pressure 149/98 10/22/2019 10:58 AM CDT Pulse 108 10/22/2019 10:58 AM CDT Temperature 37.2 ??C (99 ??F) 10/22/2019 10: 58 AM CDT Respiratory Rate - - Oxygen Saturation - - Inhaled Oxygen Concentration - - Weight 114.1 kg (251 lb 9.6 oz) 020 10:58 AM CDT Height 180.3 cm (5' 11 ) 10/22/2019 10: 58 AM CDT Body Mass Index 35.09 10/22/2019 10:58 AM CDT documented in this encounter Patient Instructions * Patient Instructions* Louann Zhu DO - 10/22/2019 11:00 AM CDT Nasal saline spray (Simply saline, Little Remedies, [place], [place]) 2 second sprays or 2 squeezes into [...] results CT Sinus - call with results documented in this encounter Progress Notes * Louann Zhu DO - 10/22/2019 11:00 AM CDT Images from the original note were not included. ENT Consult Reason for Consult: sinus pressure Requesting Provider: Charles Vogel MD SUBJECTIVE: Patient is a 24 y.o. male with chief complaint of sinus pressure. HPI: Sheri reported location of complaint was sinuses. This compliant quality was reported as recurrent and has a severity of moderate. The duration of this complaint was the last 6-7 years. Onset of this problems was 6-7 years and was associated with watery eyes, headaches, sinus pressure, nasal drainage, sneezing. No previous allergy testing, 5 sinus infections this year, last sinus infection 2 months ago. He denied previous sinus imaging or nasal trauma. Allergies to dogs and cats. Linda irlfriend with three dogs. Using Nasacort, working better than Flonase. Claritin liquid gels every day and eye drops every day. Girlfriend stays with him. FH: Sister with allergies as a child History reviewed. No pertinent past medical history. Patient Active Problem List Diagnosis ??? Allergic rhinitis History reviewed. No pertinent surgical history. Social History Tobacco Use ??? Smoking status: Never Smoker ??? Smokeless tobacco: Current User Substance Use Topics ??? Alcohol use: Yes ??? Drug use: Not on file History reviewed. No pertinent family history. Current Outpatient Medications on File Prior to Visit Medication Sig Dispense Refill ??? amLODIPine (NORVASC) 5 mg tablet Take 5 mg by mouth 2 (two) times a day ??? lisinopriL (PRINIVIL,ZESTRIL) 10 mg tablet Take 10 mg by mouth daily ??? loratadine (CLARITIN) 10 mg tablet Take 10 mg by mouth daily ??? amoxicillin (AMOXIL) 875 mg tablet ??? labetalol (NORMODYNE,TRANDATE) 100 mg tablet No current facility-administered medications on file prior to visit. No Known Allergies OBJECTIVE: Vitals BP 149/98 (BP Location: Left arm, Patient Position: Sitting) Pulse 108 Temp 37.2 ??C (99 ??F) (Temporal) Ht 180.3 cm (5' 11 ) Wt 114.1 kg (251 lb 9.6 oz) BMI 35.09 kg/m?? Review of Systems Constitutional: Negative. Negative for chills, fatigue and fever. HENT: Positive for congestion, postnasal drip, rhinorrhea and sinus pain. Negative for ear discharge, ear pain, hearing loss, nosebleeds, sinus pressure, sore throat, tinnitus, trouble swallowing andvoice change. Eyes: Negative. Negative for pain and discharge. Respiratory: Negative for apnea, cough, choking, shortness of breath, wheezing and stridor. Cardiovascular: Negative for chest pain, palpitations and leg swelling. Gastrointestinal: Negative for abdominal pain, constipation, nausea and vomiting. Negative for Heartburn, trouble swallowing foods or liquids Endocrine: Negative. Negative for cold intolerance and heat intolerance. Musculoskeletal: Negative. Negative for arthralgias, joint swelling, myalgias, neck pain and neck stiffness. Skin: Negative. Negative for color change, rash and wound. Negative for new skin lesions Allergic/Immunologic: Negative. Negative for environmental allergies and food allergies. Neurological: Negative. Negative for dizziness, syncope, speech difficulty, light-headedness and headaches. Hematological: Negative. Negative for adenopathy. Does not bruise/bleed easily. Psychiatric/Behavioral: Negative for agitation, behavioral problems and dysphoric mood. The patientis not nervous/anxious. Physical Exam Constitutional: He is oriented to person, place, and time. He appears well- developed. He is cooperative. No distress. HENT: Head: Normocephalic and atraumatic. Right Ear: Hearing, tympanic membrane, external ear and ear canal normal. Left Ear: Hearing, tympanic membrane, external ear and ear canal normal. Nose: Mucosal edema present. No rhinorrhea, sinus tenderness or nasal deformity. Mouth/Throat: Uvula is midline and mucous membranes are normal. No oral lesions. Posterior oropharyngeal erythema present. Eyes: Pupils are equal, round, and reactive to light. Conjunctivae and lids are normal. Neck: Trachea normal and full passive range of motion without pain. Neck supple. Cardiovascular: No edema, no JVD, normal distal perfusion Pulmonary/Chest: Effort normal. No respiratory distress. No cough, wheezing or stridor Abdominal: Normal appearance. Musculoskeletal: Normal range of motion. Left shoulder: Normal. Lymphadenopathy: He has no cervical adenopathy. Neurological: He is alert and oriented to person, place, and time. No cranial nerve deficit. Coordination and gait normal. Skin: Skin is warm and dry. No rash noted. Nails show no clubbing. Psychiatric: His speech is normal and behavior is normal. Examination of the pharynx with use of the laryngeal mirror was not able to be performed due to patient discomfort Neck: no palpable abnormality of submandibular or parotid gland Facial Nerve strength intact and symmetric Nasal Endoscopy Procedure: Patient was seen and [...] eustachian tube orifice were examined today. Findings: Intranasally: no masses, polyps or purulence bilaterally, mucosa was boggy and pale with some inflammation noted, larynx: diffuse inflammation, vocal fold movement was symmetric to midline, swallow intact, no masses, polyps, lesions or ulcers. Assessment & Plan: Diagnoses and all orders for this visit: Allergic rhinitis, unspecified seasonality, unspecified trigger (Primary) Assessment & Plan: Nasal saline spray (Simply saline, Little Remedies, [place], [place]) 2 second sprays or 2 squeezes into [...] results CT Sinus - call with results Orders: - Expanded respiratory allergy profile; Future - CT Sinus Stealth WO Contrast; Future Louann Zhu DO documented in this encounter Miscellaneous Notes * Assessment & Plan Note - Louann Zhu DO - 10/22/2019 11:38 AM CDT Associated Problem(s): Allergic rhinitis Nasal saline spray (Simply saline, Little Remedies, [place], [place]) 2 second sprays or 2 squeezes into [...] results CT Sinus - call with results documented in this encounter Plan of Treatment Not on file documented as of this encounter Results * CT Sinus Stealth WO Contrast (10/31/2019 5:23 PM CDT) Anatomical Region Laterality Modality Head N/A Computed Tomogra phy 10/31/2019 5:12 PM CDT Impressions 11/02/2019 12:11 PM CDT 1. ??No CT evidence of acute sinusitis. THIS IS AN ELECTRONICALLY VERIFIED FINAL REPORT 11/02/2019 12:08 PM - Electronically signed by Edward Narayan MF: GENESIS D: ??11/02/2019 12:08 PM T: ??11/02/2019 12:08 PM Report ID: [id number] Reading Location: ??[id number] Narrative 11/02/2019 12:11 PM CDT [facility] ?Imaging Result Name: SHERI BARLOW ? Ordering Phys: LOUANN ZHU Age: 24 ?Date of : 1995 ? Accession Number: [id number] Date of Service: 10/31/2019 ??Gender: M EXAM DESCRIPTION: ?? CT SINUS STEALTH WO CONTRAST REASON FOR STUDY: ?? chronic sinusitis for several years, no history of surgery to sinusDuration: several years TECHNIQUE: ??Noncontrast scanning through the paranasal sinuses using bone algorithm. ??Reconstructed MPR images reviewed. ??All images stored on PACS. Automated exposure control was used as a dose optimization technique for this examination. COMPARISON: ?? None available ??The frontal, ethmoid, sphenoid and maxillary sinuses are well aerated. ??The nasal septum is deviated to the left. ??The ostiomeatal units are patent. ??There are no erosions. ??Medial bilateral maxillary wall defects are noted. The orbits are normal. ??The mastoids are well aerated. ??There are no fractures. ??Limited evaluation of the skull base appears normal. ??The ventricles appear normal in caliber Procedure Note Edward Narayan MD - 11/02/2019 [facility] Imaging Result Name: SHERI BARLOW Ordering Phys: LOUANN ZHU Age: 24 Date of : 1995 Accession Number: [id number] Date of Service: 10/31/2019 Gender: M EXAM DESCRIPTION: CT SINUS STEALTH WO CONTRAST REASON FOR STUDY: chronic sinusitis for several years, no history ofsurgery to sinusDuration: several years TECHNIQUE: Noncontrast scanning through the paranasal sinuses usingbone algorithm. Reconstructed MPR images reviewed. All images stored onPACS. Automated exposure control was used as a dose optimization technique forthis examination. COMPARISON: None available The frontal, ethmoid, sphenoid and maxillary sinuses are well aerated. The nasal septum is deviated to the left. The ostiomeatal unitsare patent. There are no erosions. Medial bilateral maxillary wall defectsare noted. The orbits are normal. The mastoids are well aerated. There are no fractures. Limited evaluation of the skull base appears normal. The ventricles appear normal in caliber IMPRESSION: 1. No CT evidence of acute sinusitis. THIS IS AN ELECTRONICALLY VERIFIED FINAL REPORT 11/02/2019 12:08 PM - Electronically signed by Edward Narayan MF: GENESIS Report ID: [id number] Reading Location: [place] [address] Lou[address] Zhu DO IMG [address] PROCEDURES Final Resu lt * (ABNORMAL) Expanded respiratory allergy profile (10/22/2019 12:05 PM CDT) Alternaria tenius IgE <0.10 0.00 - 0.34 kUnits/L [facility] ([facility]) Comment:Testing performed by : [facility], [place]., [address] Julian white IgE <0.10 0.00 - 0.34 kUnits/L [facility] ([facility]) Comment:Testing performed by : [facility], [place]., [address] Aspergillus fumigatus IgE <0.10 0.00 - 0.34 kUnits/L [facility] ([facility]) Comment:Testing performed by : [facility], [place]., [address] Bermuda grass IgE 1.13(H) 0.00 - 0.34 kUnits/L [facility] ([facility]) Comment:Testing performed by : [facility], [place]., [address] Cat dander IgE <0.10 0.00 - 0.34 kUnits/L [facility] (T[facility]I) Comment:Testing performed by : [facility], [place]., [address] Cladosporium herbarum IgE <0.10 0.00 - 0.34 kUnits/L [facility] ([facility]) Comment:Testing performed by : [facility], [place]., [address] Cockroach IgE <0.10 0.00 - 0.34 kUnits/L [facility] ([facility]) Comment:Testing performed by : [facility], [place]., [address] [place] IgE <0.10 0.00 - 0.34 kUnits/L [facility] ([facility]) Comment:Testing performed by : [facility], [place]., [address] Dermatophyton farinae IgE <0.10 0.00 - 0.34 kUnits/L [facility] ([facility]) Comment:Testing performed by : [facility], [place]., [address] Dermatophyton pteronyssinus IgE <0.10 0.00 - 0.34 kUnits/L [facility] ([facility]) Comment:Testing performed by : [facility], [place]., [address] Dog dander IgE <0.10 0.00 - 0.34 kUnits/L [facility] ([facility]) Comment:Testing performed by : [facility], [facility], [address] Elm IgE <0.10 0.00 - 0.34 kUnits/L [facility] ([facility]) Comment:Testing performed by : [facility], [place]., [address] Maple/box elder IgE <0.10 0.00 - 0.34 kUnits/L [facility] ([facility]) Comment:Testing performed by : [facility], [place]., [address] Mountain juniper IgE 0.12 0.00 - 0.34 kUnits/L [facility] ([facility]) Comment:Testing performed by : [facility], [place]., [address] [place] IgE <0.10 0.00 - 0.34 kUnits/L [facility] ([facility]) Comment:Testing performed by : [facility], [place]., [address] [place] IgE 22.10(H) 0.00 - 0.34 kUnits/L [facility] ([facility]) Comment:Testing performed by : [facility], [place]., [address] Pecan (tree) IgE 0.37(H) 0.00 - 0.34 kUnits/L [facility] ([facility]) Comment:Testing performed by : [facility], [place]., [address] Penicillium chrysogenum IgE <0.10 0.00 - 0.34 kUnits/L [facility] ([facility]) Comment:Testing performed by : [facility], [place]., [address] Ragweed common IgE <0.10 0.00 - 0.34 kUnits/L [facility] ([facility]) Comment:Testing performed by : [facility], [place]., [address] [place]er rough IgE <0.10 0.00 - 0.34 kUnits/L [facility] ([facility]) Comment:Testing performed by : [facility], [place]., [address] Pigweed rough IgE <0.10 0.00 - 0.34 kUnits/L [facility] ([facility]) Comment:Testing performed by : [facility], [address] Thistle tongan IgE 0.10 0.00 - 0.34 kUnits/L [facility] ([facility]) Comment:Testing performed by : [facility], [place]., [address] [place] IgE <0.10 0.00 - 0.34 kUnits/L [facility] ([facility]) Comment:Testing performed by : [facility], [place]., [address] Tomasz grass IgE 0.11 0.00 - 0.34 kUnits/L [facility] ([facility]) Comment:Testing performed by : [facility], [place]., [address] [place] (tree) IgE <0.10 0.00 - 0.34 kUnits/L [facility] ([facility]) Comment:Testing performed by : [facility], [place]., [address] IgE 146.2(H) 1.0 - 100.0 IUnits/mL [facility] ([facility]) Comment:Testing performed by : [facility], [place]., [address] Blood specimen (specimen) 10/22/2019 12:05 PM CDT 10/22/2019 5:01 PM CDT Louann Zhu DO LAB BLOOD ORDERABLES Final R esult [facility] (T[facility]) [address] [facility] Department [place] [address] documented in this encounter Visit Diagnoses Diagnosis Allergic rhinitis, unspecified seasonality, unspecified trigger- Primary Allergic rhinitis, unspecified seasonality, unspecified trigger documented in this encounter Historical Medications * This list may reflect changes made after this encounter. loratadine (CLARITIN) 10 mg tabletIndications :liquid gel Take 10 mg by mouth daily 09/12/2021 amLODIPine (NORVASC) 5 mg tablet Take 5 mg by mouth 2 (two) times a day 10/14/2019 09/12/2021 lisinopriL (PRINIVIL,ZESTRIL ) 10 mg tablet Take 20 mg by mouth daily 10/15/2019 06/11/2020 added in this encounter Care Teams Tire Installer Relationship Specialty Start Date End Date Charles Vogel MD [address] [place] [address] PCP - General 05/21/19 09/10/21 documented as of this encounter
--- OUTSIDE RECORDS SUMMARY | 2024-05-13 11:11 | XMS_ITS | Encounter Summary ---
Author Organization [facility] Healthcare Address [address] [place] [address] Care Team Providers Care Rules Examiner Name Role Phone Pankaj Rosenberg MD Primary Care Provider [phone] Encounter Details Date Type Department Care Team (Latest Contact Info) Description 09/11/2021 10:21 PM CDT - 09/11/2021 11:35 PM CDT Hospital Encounter [facility] Discharge Disposition: Discharge to home or self care Social History Tobacco Use Types Packs/Day Years Used Date Smoking Tobacco: Never Smokeless Tobacco: Current Snuff Alcohol Use Standard Drinks/Week Comments Yes 0 (1 standard drink = 0.6 oz pur e alcohol) SOCIAL Sex and Gender Information Value Date Recorded Sex Assigned at Not on file 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
--- OUTSIDE RECORDS SUMMARY | 2024-05-13 11:11 | XMS_ITS | Encounter Summary ---
Author Organization [facility] Address [address] [place] [address] Care Team Providers Care Farm Assistant Name Role Phone Charles Vogel MD Primary Care Provider [phone] Encounter Details Date Type Department Care Team (Late st Contact Info) Description 11/02/[address] 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 * Telephone Encounter - Lacy Cordero MA - 11/02/2019 3:04 PM CDT ----- Message from Louann Zhu DO sent at 11/02/2019 1:24 PM CDT ----- CT Sinus: Please call, sinuses were fine, significant deviated nasal septum to the left, suspect allergies as well, continue current treatment and follow up in 6 weeks to recheck documented in this encounter Plan of Treatment Not on file documented as of this encounter Visit Diagnoses Not on filedocumented in this encounter Care Teams Farm Assistant Relationship Specialty Start Date End Date Charles Vogel MD [address] [place] [address] PCP - General 05/21/19 09/10/21 documented as of this encounter
--- OUTSIDE RECORDS SUMMARY | 2024-05-13 11:11 | XMS_ITS | Encounter Summary ---
Author Organization [facility] Address [address] [place] [address] Care Team Providers Care Set And Exhibit Designer Name Role Phone Charles Vogel MD Primary Care Provider [phone] Reason for Visit * Reason Comments Post-op Encounter Details Date Type Department Care Team (Late st Contact Info) Description 01/22/2020 11:50 AM CDT Office Visit [facility] E[facility] Specialists - [facility] [address] [facility] [address] [place] [phone] Louann Zhu, 4 [facility] [address] [place] [address] Deviated nasal septum (Primary Dx); Allergic rhinitis, unspecified seasonality, unspecified trigger Social History Tobacco Use Types Packs/Day Years Used Date Smoking Tobacco: Never Smokeless Tobacco: Current Snuff Alcohol Use Standard Drinks/Week Comments Yes 0 (1 standard drink = 0.6 oz pur e alcohol) Sex and Gender Information Value Date Recorded Sex Assigned at Not on file 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 Gender Identity Not on file Sexual Orientation Not on file documented as of this encounter Last Filed Vital Signs Vital Sign Reading Time Taken Comments Blood Pressure 141/91 01/22/2020 11:50 AM CDT Pulse 108 01/22/2020 11:50 AM CDT Temperature 36.1 ??C (96.9 ??F) 01/22/2020 11:50 AM C DT Respiratory Rate - - Oxygen Saturation - - Inhaled Oxygen Concentration - - Weight 114.3 kg (252 lb) 01/22/2020 11:50 AM CDT Height 180.3 cm (5' 11 ) 01/22/2020 11:50 AM CDT Body Mass Index 35.15 01/22/2020 11:50 AM CDT documented in this encounter Patient Instructions * Patient Instructions* Louann Zhu DO - 01/22/2020 11:50 AM CDT Continue nasal saline 2-3 times per day May blow nose gently Restart Allergy medications once cleared by Sand Molder documented in this encounter Progress Notes * Louann Zhu DO - 01/22/2020 11:50 AM CDT Images from the original note were not included. ENT Progress Note Reason for Follow up: s/p Septoplasty Requesting Provider: No att. providers found SUBJECTIVE: Patient was following up for s/p Septoplasty. HPI: Chuck reported complaint being improved, some congestion remains, sense of smell not back to normal,seeing Sand Molder for skin testing tomorrow. Headaches have improved. Last seen: 01/10/2020 Deviated nasal septum (Primary) Assessment & Plan: Continue Nasal saline 2-3 times per day Wear a Mask all the time at work Avoid nose blowing until seen in the office next week Have an appointment to see the Sand Molder 01/2201/02/2020: PROCEDURE PERFORMED: Septoplasty Submucosal Reduction of Inferior Turbinates bilaterally Current Outpatient Medications on File Prior to Visit Medication Sig Dispense Refill ??? amLODIPine (NORVASC) 5 mg tablet Take 5 mg by mouth 2 (two) times a day ??? lisinopriL (PRINIVIL,ZESTRIL) 10 mg tablet Take 20 mg by mouth daily ??? loratadine (CLARITIN) 10 mg tablet Take 10 mg by mouth daily ??? HYDROcodone-acetaminophen (NORCO) 5-325 mg per tablet Take 1 tablet by mouth every 6 (six) hours as needed for pain for up to 15 doses (Patient not taking: Reported on 01/22/2020) 15 tablet 0 No current facility-administered medications on file prior to visit. No Known Allergies OBJECTIVE: Vitals BP 141/91 (BP Location: Left arm, Patient Position: Sitting) Pulse 108 Temp 36.1 ??C (96.9 ??F) (Temporal) Ht 180.3 cm (5' 11 ) Wt 114.3 kg (252 lb) BMI 35.15 kg/m?? Review of Systems HENT: Positive for congestion. Physical Exam HENT: Head: Normocephalic and atraumatic. Right Ear: External ear normal. Left Ear: External ear normal. Nose: Mucosal edema present. Mouth/Throat: Uvula is midline, oropharynx is clear and moist and mucous membranes are normal. Mucous membranes are moist. Anterior nasal crusting bilaterally Eyes: Pupils are equal, round, and reactive to light. Abdominal: Normal appearance. Neurological: He is alert. Nasal Endoscopy with crusted debris removed with suction today with improvement in nasal congestion Assessment & Plan: Diagnoses and all orders for this visit: Deviated nasal septum (Primary) Assessment & Plan: Continue nasal saline 2-3 times per day May blow nose gently Restart Allergy medications once cleared by Sand Molder PROCEDURE PERFORMED: Septoplasty Submucosal Reduction of Inferior Turbinates bilaterally Allergic rhinitis, unspecified seasonality, unspecified trigger Assessment & Plan: Continue nasal saline 2-3 times per day May blow nose gently Restart Allergy medications once cleared by Sand Molder Louann Zuh DO documented in this encounter Miscellaneous Notes * Assessment & Plan Note - Louann Zhu DO - 01/22/2020 12:56 PM CDT Associated Problem(s): Allergic rhinitis Continue nasal saline 2-3 times per day May blow nose gently Restart Allergy medications once cleared by Sand Molder * Assessment & Plan Note - Louann Zhu DO - 01/22/2020 12:16 PM CDT Associated Problem(s): Deviated nasal septum Continue nasal saline 2-3 times per day May blow nose gently Restart Allergy medications once cleared by Sand Molder PROCEDURE PERFORMED: Septoplasty Submucosal Reduction of Inferior Turbinates bilaterally documented in this encounter Plan of Treatment Not on file documented as of this encounter Visit Diagnoses Diagnosis Deviated nasal septum- Primary Allergic rhinitis, unspecified seasonality, unspecified trigger documented in this encounter Care Teams Set And Exhibit Designer Relationship Specialty Start Date End Date Charles Vogel MD [address] [place] [address] PCP - General 05/21/19 09/10/21 documented as of this encounter
--- OUTSIDE RECORDS SUMMARY | 2024-05-13 11:11 | XMS_ITS | Encounter Summary ---
Author Organization [facility] Address [address] [place] [address] Care Team Providers Care Group Burner Machine Name Role Phone Charles Vogel MD Primary Care Provider [phone] Reason for Referral * Diagnostic Imaging (Routine) - Closed Specialty Diagnoses / Procedures Referred By Contac t Referred To Contact Radiology Diagnoses Allergic rhinitis, unspecified seasonality, unspecified trigger Procedures CT Sinus Stealth WO Contrast Earline Zhu DO Phone: tel: fax: [address] [phone] Referral ID Status Reason Start Date Expiration Date Visits Re quested Visits Authorized [id number] Closed 10/22/2019 04/21/2020 1 1 Reason for Visit * Diagnostic Imaging (Routine) - Closed Specialty Diagnoses / Procedures Referred By Contac t Referred To Contact Radiology Diagnoses Allergic rhinitis, unspecified seasonality, unspecified trigger Procedures CT Sinus Stealth WO Contrast Earline Zhu DO Phone: tel: fax: [address] [phone] Referral ID Status Reason Start Date Expiration Date Visits Re quested Visits Authorized [id number] Closed 10/22/2019 04/21/2020 1 1 Encounter Details Date Type Department Care Team (Latest Contact Info) Description 10/31/2019 5:00 PM CDT - 10/31/2019 11:59 PM CDT Hospital Encounter [facility] [address] [place] [address] Earline Zhu, [address] [facility] [address] BHAVIK Ramirez [address] [place] [address] Allergic rhinitis, unspecified seasonality, unspecified trigger Discharge Disposition: Discharge to home or self care Social History Tobacco Use Types Packs/Day Years Used Date Smoking Tobacco: Never Smokeless Tobacco: Current Alcohol Use Standard Drinks/Week Comments Yes 0 (1 standard drink = 0.6 oz pur e alcohol) Sex and Gender Information Value Date Recorded Sex Assigned at Not on file 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:34 PM RECEIVABLE MANAGER Gender Identity Not on file Sexual Orientation Not on file documented as of this encounter Medications at Time of Discharge amLODIPine (NORVASC) 5 mg tablet Take 5 mg by mouth 2 (two) times a day 10/14/2019 09/12/2021 amoxicillin (AMOXIL) 875 mg tablet 05/31/2019 12/28/2019 labetalol (NORMODYNE,TRANDA TE) 100 mg tablet 05/31/2019 020 lisinopriL (PRINIVIL,ZESTRIL ) 10 mg tablet Take 20 mg by mouth daily 10/15/2019 06/11/2020 loratadine (CLARITIN) 10 mg tabletIndications :liquid gel Take 10 mg by mouth daily 09/12/2021 documented as of this encounter Discharge Disposition Disposition Code Departure Means Destination Discharge to home or self care documented in this encounter Plan of Treatment Not on file documented as of this encounter Procedures Procedure Name Priority Date/Time Associated Diagnosis Comments CT SINUS STEALTH WO CONTRAST Schedule Routine, Read Routine (OP Routine) 10/31/2019 5:23 PM CDT Allergic rhinitis, unspecified seasonality, unspecified trigger documented in this encounter Results * CT Sinus Stealth [...] PM T: ??11/02/2019 12:08 PM Report ID: [id number] Reading Location: ??[id number] Narrative 11/02/2019 12:11 PM CDT [facility] ?Imaging Result Name: SHERI BARLOW ? Ordering Phys: EARLINE ZHU Age: 24 ?Date of : 1995 ? Accession Number: [id number] Date of Service: 10/31/2019 ??Gender: M EXAM [...] Procedure Note Edward Narayan MD - 11/02/2019 [facility] Imaging Result Name: SHERI BARLOW Ordering Phys: EARLINE ZHU Age: 24 Date of : 1995 Accession Number: [id number] Date of Service: 10/31/2019 Gender: M EXAM [...] by Edward Narayan MF: GENESIS Report ID: [id number] Reading Location: [id number] Earline Zhu DO IMG CT PROCEDURES Final Resu lt documented in this encounter Visit Diagnoses Diagnosis Allergic rhinitis, unspecified seasonality, unspecified trigger documented in this encounter Care Teams Group Burner Machine Relationship Specialty Start Date End Date Charles Vogel MD [address] [place] [address] PCP - General 05/21/19 09/10/21 documented as of this encounter
--- OUTSIDE RECORDS SUMMARY | 2024-05-13 11:18 | XMS_ITS | Encounter Summary ---
Author Organization [facility] Address [address] [place] [address]. [place] [address] [place] [address] Care Team Providers Care Dental Mold Maker Name Role Phone Pankaj Rosenberg MD Primary Care Provider [phone] Reason for Visit * Reason Comments Lab [...] on file Legal Sex Male 2:58 PM FACILITIES TECHNICIAN Gender Identity Male 07/13/2021 5:19 AM FACILITIES TECHNICIAN Sexual Orientation Straight 07/13/2021 5: 19 AM FACILITIES TECHNICIAN documented as of this encounter Plan of Treatment Upcoming Encounters Date Type Department Care Team (Late st Contact Info) Description 05/15/2024 3:30 PM FACILITIES TECHNICIAN [facility]ointment [facility] [place] [address] Pankaj Rosenberg MD [address] [facility] [address] [place] [address] 05/25/2024 12:45 PM FACILITIES TECHNICIAN Office Visit [facility] [address] [address] Pankaj Rosenberg MD [address] [address] Maya Magaña, [place] [address] 05/30/2024 3:40 PM FACILITIES TECHNICIAN [facility] [place] [address] [address] [place] [address] Pankaj Rosenberg MD [address] [address] 06/20/2024 3:40 PM FACILITIES TECHNICIAN [facility] [place] [address] [address] [place] [address] Pankaj Rosenberg MD [address] [address] 06/21/2024 1:00 PM FACILITIES TECHNICIAN Office Visit [facility] - [place] [address] [place] [address] Jose Ratliff MD [id number] [place] [address] 03/27/2025 1:00 PM FACILITIES TECHNICIAN Office Visit [facility]ialty Care - [facility] [address] [facility] [address] [place] [address] Bob Oneal MD 3 [facility] [address] [place] [address] documented as of this encounter Procedures Procedure [...] Total Score: 4 06/15/19 24 9:40 AM FACILITIES TECHNICIAN documented as of this encounter Care Teams Dental Mold Maker Relationship Specialty Start Date End Date Pankaj Rosenberg MD [address] [address] PCP - General INTERNAL MEDICINE 06/15/21 documented as of this encounter
--- OUTSIDE RECORDS SUMMARY | 2024-05-13 11:18 | XMS_ITS | Encounter Summary ---
Author Organization [facility] Address [address] [place] [address]. [place], [place] [address] [place] [address] Care Team Providers Care Kettle Coordinator Name Role Phone Pankaj Rosenberg MD Primary Care Provider [phone] Reason for Visit * Reason Onset Date Comments Follow Up Call 10/07/2023 Encounter Details Date Type Department Care Team (Late st Contact Info) Description 10/07/2023 Telephone [facility] Multispecialty Care - [place] [address] [address] [place], [place] [id number] Pankaj Rosenberg MD [address] [place] [address] [address] [place] [address] Follow Up Call (/) Social History Tobacco Use Types Packs/Day Years Used Date Smoking Tobacco: Never Smokeless Tobacco: Former Snuff, Chew Quit: 08/14/2020 Comments:counseled by Dr Sammie gallrado Alcohol Use Standard Drinks/Week Comments Yes 5 (1 standard drink = 0.6 oz pur e alcohol) socially on weekends PHQ-2 Answer Date Recorded Patient Health Questionnaire-2 Score 2 06/15/2023 Sex and Gender Information Value Date Recorded Sex Assigned at Not on file Legal Sex Male 2:58 PM SYSTEMS REQUIREMENTS PLANNER Gender Identity Male 07/13/2021 5:19 AM SYSTEMS REQUIREMENTS PLANNER Sexual Orientation Straight 07/13/2021 5: 19 AM SYSTEMS REQUIREMENTS PLANNER documented as of this encounter Progress Notes [...] st Contact Info) Description 05/15/2024 3:30 PM SYSTEMS REQUIREMENTS PLANNER Appointment [facility] [address] Pankaj Rosenberg MD [address] [place] [address] 05/25/2024 12:45 PM SYSTEMS REQUIREMENTS PLANNER Office [facility] Physical Therapy [address] [place] [address] Pankaj Rosenberg MD [address] [place] [address] Maya Magaña, [place] [address] 05/30/2024 3:40 PM SYSTEMS REQUIREMENTS PLANNER [facility] [place] [address] [address] [place] [address] Pankaj Rosenberg MD [address] [place] [address] 06/20/2024 3:40 PM SYSTEMS REQUIREMENTS PLANNER [facility] [place] [address] [address] [place] [address] Pankaj Rosenberg MD [address] [facility] [address] [place] [address] 06/21/2024 1:00 PM SYSTEMS REQUIREMENTS PLANNER Office Visit [facility] Orthopedic & Sports Medicine - [place] [address] [place] [address] Jose Ratliff MD [address] [address] [place] [address] 03/27/2025 1:00 PM SYSTEMS REQUIREMENTS PLANNER Office Visit [facility] Multispecialty Care - [facility] 3 [facility] [address] [place] [address] Bob Oneal MD [address] [facility] [address] [place] [address] documented as of this encounter Visit Diagnoses Not on filedocumented in this encounter Additional Health Concerns Assessment Noted Time PHQ-9 Depression Total Score: 4 06/15/19 24 9:40 AM SYSTEMS REQUIREMENTS PLANNER documented as of this encounter Care Teams Kettle Coordinator Relationship Specialty Start Date End Date Pankaj Rosenberg MD [address] [facility] [address] [place] [address] PCP - General INTERNAL MEDICINE 06/15/21 documented as of this encounter
--- OUTSIDE RECORDS SUMMARY | 2024-05-13 11:18 | XMS_ITS | Encounter Summary ---
Author Organization [facility] Address [address] [place] [address]. [place] [address] [place] [address] Care Team Providers Care Business And Services Instructor Name Role Phone Pankaj Rosenberg MD Primary Care Provider [phone] Reason for Visit * Reason Onset Date Comments Results 08/31/2023 Encounter Details Date Type Department Care Team (Late st Contact Info) Description 08/31/2023 Telephone [facility] Multispecialty Care - [facility] [address] [facility], [address] [place] [address] Carolyn Rutledge NP 3 [facility] [address] [place] [address] Results Social History Tobacco Use Types Packs/Day [...] on file Legal Sex Male 2:58 PM VENEER STACKER Gender Identity Male 07/13/2021 5:19 AM VENEER STACKER Sexual Orientation Straight 07/13/2021 5: 19 AM VENEER STACKER documented as of this encounter Progress Notes [...] st Contact Info) Description 05/15/2024 3:30 PM VENEER STACKER Appointment [facility] [place] [address] Pankaj Rosenberg MD [address] [place] [address] 05/25/2024 12:45 PM VENEER STACKER Office Visit [facility] Physical Therapy [address] [place] [address] Pankaj Rosenberg MD [address] [place] [address] Maya Magaña, [place] [address] 05/30/2024 3:40 PM VENEER STACKER [facility] - [place] [address] [place] [address] Pankaj Rosenberg MD [address] [place] [address] 06/20/2024 3:40 PM VENEER STACKER [facility] [place] [address] [address] [place] [address] Pankaj Rosenberg MD 118[address] [facility] [address] [place] [address] 06/21/2024 1:00 PM VENEER STACKER Office Visit [facility] Orthopedic & Sports Medicine - [place] [address] [place] [address] Jose Ratliff MD [address] [place] [address] [place] [address] 03/27/2025 1:00 PM VENEER STACKER Office Visit [facility] Multispecialty Care - [facility] 3 [facility] [address] [place] [address] Bob Oneal MD 3 [facility] [address] [place] [address] documented as of this encounter Visit Diagnoses Not on filedocumented in this encounter Additional Health Concerns Assessment Noted Time PHQ-9 Depression Total Score: 4 06/15/19 24 9:40 AM VENEER STACKER documented as of this encounter Care Teams Business And Services Instructor Relationship Specialty Start Date End Date Pankaj Rosenberg MD [address] [address] PCP - General INTERNAL MEDICINE 06/15/21 documented as of this encounter
--- OUTSIDE RECORDS SUMMARY | 2024-05-13 11:18 | XMS_ITS | Continuity of Care Document ---
Author Organization [facility] Address [address] [facility] [address] [place] [address] Phone Care Team Providers Care Ladle Filler Name Role Phone Jack Medina MD Unavailable Unavailable Medications Medication Instructions Dosage Effective Dates (start - stop) Status Comments OXYCODONE HCL (unknown strength) Not Available - Active FLEXERIL (unknown strength) Not Available - Active ZOLPIDEM TARTRATE (unknown strength) Not Available - Active Procedures Procedure Date OFFICE/OUTPATIENT VISIT EST POSTOP FOLLOW-UP VISIT POSTOP FOLLOW-UP VISIT Advance Directives Directive Yes / No Effective Date File Name No Information Encounters Encounter Description Practice Location Reason(s) For Visit Diagnoses Date Provider Providers Copied on Encounter OFFICE/OUTPA TIENT VISIT EST [facility], [address] [place] [address], [facility], [phone] [facility] [place] f/u Cervical Spine (chief complaint) Postlaminectomy syndrome, cervical region -201 5 Carol Santiago. [address] [place] [address], [id number] . tel: [phone] [facility], [address] [place] [address], [address], tel:[phone] [facility] cervical spine (chief complaint) Closed fracture of cervical vertebra 3-201 4 Curylo Jack. [address] [place] [address], [id number] . tel: [phone] [facility], [address], [place], [address], [place] [phone] [facility] Closed fracture of cervical vertebra 4 Carol Santiago. [address], [place], [place], [id number] . tel: [phone] Family History Family Member Type Diagnosis Age At Onset No Information Payers Payer name Insurance type Covered democrat ID Authoriza tion(s) No Information Social History Type Description Quantity Date Captured Comments Alcohol Use Details Unknown Caffeine Use Details Unknown Tobacco Use Status Snuff user Smoking Status Smoker, current stat us unknown Non-Smoking Tobacco Use Details Snuff: No Details Available Snuff: No Details Available Sex Male Vital Signs Date / Time: Height Weight BMI Pulse Rate Blood Pressure Temperature Respiratory Rate Body Surface Area Head Circumference Head Circ. Percentile Wt./Breezy. Percentile BMI percentile Pulse Ox Inhaled Ox 1:40 PM 72.00 in 95.254 kg (210.00 lbs) 28.4 8 kg/m eter (2) 126/71 mm[Hg] Chief Complaint And Reason For Visit From encounter dated '09/26/2014 13:35'. f/u Cervical Spine (chief complaint) Reason For Referral Reason For Referral No Information Plan Of Treatment Date Type Action Status Referral Ordered: RADEX SPI CRV MINIMUM 4 VIEWS ordered Referral Ordered: RADEX SPI CRV 2/3 VIEWS ordered History Of Present Illness Encounter Date Complaint History Of Prese nt Illness f/u Cervical Spine Functional Status Date Functional Assessmen t No Information Instructions Date Instruction Additional Infor mation Physical activity counseling Rel ated to Dietary Surveillance Counseling Assessments Type Assessment Date assessment Postlaminectomy syndrome, cervic al region Patient Care Teams Name Effective Dates (start - stop) Status Members No Information
--- OUTSIDE RECORDS SUMMARY | 2024-05-13 11:18 | XMS_ITS | Encounter Summary ---
Author Organization [facility] Address [address] [place] [address]. [place], [place] [address] [place] [address] Care Team Providers Care Community Health Specialist Name Role Phone Pankaj Rosenberg MD Primary Care Provider [phone] Encounter Details Date Type Department Care Team [...] on file Legal Sex Male 2:58 PM SWAGING MACHINE OPERATOR Gender Identity Male 07/13/2021 5:19 AM SWAGING MACHINE OPERATOR Sexual Orientation Straight 07/13/2021 5: 19 AM SWAGING MACHINE OPERATOR documented as of this encounter Plan of Treatment Upcoming Encounters Date Type Department Care Team (Late st Contact Info) Description 05/15/2024 3:30 PM SWAGING MACHINE OPERATOR Appointment [facility] [place] [address] Pankaj Rosenberg MD [address] [address] 05/25/2024 12:45 PM SWAGING MACHINE OPERATOR Office Visit [facility] Physical Therapy [address] [address] Pankaj Rosenberg MD [address] [address] Maya Magaña, [place] [address] 05/30/2024 3:40 PM SWAGING MACHINE OPERATOR Office Visit [facility] Multispecialty Care - [place] [address] [address] [place] [address] Pankaj Rosenberg MD [address] [address] 06/20/2024 3:40 PM SWAGING MACHINE OPERATOR [facility] [place] [address] [address] [place] [address] Pankaj Rosenberg MD [address] [address] 06/21/2024 1:00 PM SWAGING MACHINE OPERATOR Office Visit [facility] Medical Group [facility] - [place] [address] [place] [address] Jose Ratliff MD [id number] [place] [address] 03/27/2025 1:00 PM SWAGING MACHINE OPERATOR Office Visit [facility] Medical [facility] Mult[facility]pecialty Care - [facility] 3 [facility] [address] [place] [id number] Bob Oneal MD 3 [facility] [address] [place] [address] documented as of this encounter Visit Diagnoses Not on filedocumented in this encounter Additional Health Concerns Assessment Noted Time PHQ-9 Depression Total Score: 4 06/15/19 24 9:40 AM SWAGING MACHINE OPERATOR documented as of this encounter Care Teams Community Health Specialist Relationship Specialty Start Date End Date Pankaj Rosenberg MD [address] [address] PCP - General INTERNAL MEDICINE 06/15/21 documented as of this encounter
--- OUTSIDE RECORDS SUMMARY | 2024-05-13 11:18 | XMS_ITS | Encounter Summary ---
Author Organization [facility] Address [address] [place] [address]. [place] [address] [place] [address] Care Team Providers Care Stable Manager Name Role Phone Pankaj Rosenberg MD Primary Care Provider [phone] Reason for Visit * Reason Onset Date Comments Appointment Reminder 09/15/2023 Encounter Details Date Type Department Care Team (Late st Contact Info) Description 09/15/2023 Telephone [facility] Medical Group Multispecialty Care - [facility] 3 [facility] [address] [place] [phone] Bob Oneal MD 3 [facility] [address] [place] [address] Appointment Reminder Social History Tobacco Use Types [...] on file Legal Sex Male 2:58 PM PHARMACY AIDE Gender Identity Male 07/13/2021 5:19 AM PHARMACY AIDE Sexual Orientation Straight 07/13/2021 5: 19 AM PHARMACY AIDE documented as of this encounter Progress Notes * Amara Mcgarry LPN - 09/15/2023 11:44 AM CDT Pt called and appt made * Dorcas Gu - 09/15/2023 11:23 AM CDT Patient had colonoscopy/Endo done 2 weeks ago, was told he needs to be seen within 2 weeks [phone] documented in this encounter Plan of Treatment Upcoming Encounters Date Type Department Care Team (Late st Contact Info) Description 05/15/2024 3:30 PM PHARMACY AIDE Appointment [facility] [place] [address] Pankaj Rosenberg MD [address] [place] [phone] 05/25/2024 12:45 PM PHARMACY AIDE Office Visit [facility] Physical Therapy [address] [place] [address] [phone] Pankaj Rosenberg MD [address] [place] [address] [phone] Maya Magaña, [place] [address] 05/30/2024 3:40 PM PHARMACY AIDE [facility] [place] [address] [address] [place], [place] [address] Pankaj Rosenberg MD [address] [place] [address] 06/20/2024 3:40 PM PHARMACY AIDE Telemedicine [facility] - [place] [address] [address] [place] [address] Pankaj Rosenberg MD 1188 [facility] [address] [place] [address] 06/21/2024 1:00 PM PHARMACY AIDE Office Visit [facility] Medical Group Orthopedic & Sports Medicine - [place] [address] [place] [address] Jose Ratliff MD [address] [address] [place] [address] 03/27/2025 1:00 PM PHARMACY AIDE Office Visit [facility] Multispecialty Care - [facility] 3 [facility] [address] [place] [address] Bob Oneal MD 3 [facility] [address] [place] [address] documented as of this encounter Visit Diagnoses Not on filedocumented in this encounter Additional Health Concerns Assessment Noted Time PHQ-9 Depression Total Score: 4 06/15/19 24 9:40 AM PHARMACY AIDE documented as of this encounter Care Teams Stable Manager Relationship Specialty Start Date End Date Pankaj Rosenberg MD 1188 [facility] 157 [place] [address] PCP - General INTERNAL MEDICINE 06/15/21 documented as of this encounter
--- OUTSIDE RECORDS SUMMARY | 2024-05-13 11:18 | XMS_ITS | Encounter Summary ---
Author Organization [facility] Address [address] [place] [address]. [place], [place] [address] [place] [address] Care Team Providers Care Information Security Risk Analyst Name Role Phone Pankaj Rosenberg MD Primary Care Provider [phone] Reason for Referral * Consultation (Routine) - New Request Specialty Diagnoses / Procedures Referred By Contac t Referred To Contact ORTHOPAEDICS Diagnoses Chronic left shoulder pain Procedures OFFICE/OUTPATIENT NEW LOW MDM 30-44 MINUTES OFFICE/OUTPT VISIT,NEW,LEVL IV OFFICE/OUTPT VISIT,NEW,LEVL V OFFICE/OUTPT VISIT,EST,LEVL III OFFICE/OUTPT VISIT,EST,LEVL IV OFFICE/OUTPT VISIT,EST,LEVL V Pankaj Rosenberg MD 1188 [facility] [address] [place] [address] Phone: tel: fax: Jose Ratliff MD [address] [place] [address] Phone: tel: fax: Referral ID Status Reason Start Date Expiration Date Visits Requested Visits Authorized [id number] New Request Specialty Services 06/01/2025 100 100 AL INSTRUMENT MAKER * Physical Medicine (Routine) - Authorized Specialty Diagnoses / Procedures Referred By Contac t Referred To Contact PHYSICAL THERAPY / [facility] Physical Therapy Diagnoses Chronic left shoulder pain Procedures OFFICE/OUTPATIENT NEW LOW MDM 30-44 MINUTES OFFICE/OUTPT VISIT,NEW,LEVL IV OFFICE/OUTPT VISIT,NEW,LEVL V OFFICE/OUTPT VISIT,EST,LEVL III OFFICE/OUTPT VISIT,EST,LEVL IV OFFICE/OUTPT VISIT,EST,LEVL V Pankaj Rosenberg MD 1188 [place] [address] Phone: tel: fax: [facility] Physical Therapy [address] [place] [address] Phone: tel: fax: Referral ID Status Reason Start Date Expiration Date Visits Requested Visits Authorized [id number] Authorized Physical Therapy 05/30/2025 1 1 AL INSTRUMENT MAKER * Imaging (Routine) - Authorized Specialty Diagnoses / Procedures Referred By Contac t Referred To Contact RADIOLOGY Diagnoses Chronic left shoulder pain Procedures MRI SHOULDER LT WO CON Pankaj Rosenberg MD [address] [place] [address] Phone: tel: fax: Referral ID Status Reason Start Date Expiration Date V isits Requested Visits Authorized [id number] Authorized 04/30/2024 04/30/2025 1 1 AL INSTRUMENT MAKER Reason for Visit * Reason Comments Follow Up Medication f/u for v ilazidone and sore shoulder Shoulder Pain Depression Encounter Details Date Type Department Care Team (Latest Contact Info) Description 04/30/2024 3:40 PM DENTAL INSTRUMENT MAKER Telemedicine [facility] Medical Group Multispecialty Care - [place] [address] [address] [place] [address] Pankaj Rosenberg MD [address] [place] [address] Follow Up (Medication f/u for vilazidone and [...] on file Legal Sex Male 2:58 PM DENTAL INSTRUMENT MAKER Gender Identity Male 07/13/2021 5:19 AM DENTAL INSTRUMENT MAKER Sexual Orientation Straight 07/13/2021 5: 19 AM DENTAL INSTRUMENT MAKER documented as of this encounter Last Filed Vital Signs Vital Sign Reading Time Taken Comments Blood Pressure - - Pulse - - Temperature - - Respiratory Rate - - Oxygen Saturation - - Inhaled Oxygen Concentration - - Weight 117.9 kg (260 lb) 04/30/2024 3:43 PM DENTAL INSTRUMENT MAKER Height - - Body Mass Index 36.26 04/11/2024 1:41 PM DENTAL INSTRUMENT MAKER documented in this encounter Patient Instructions * Patient Instructions* Pankaj Rosenberg MD - 04/30/2024 3:40 PM DENTAL INSTRUMENT MAKER Referral call You will receive a call from our referral team ([phone]) regarding your referral. Insurance authorization Our brake specialist will contact your insurance company to get prior authorization if needed. Appointment If you have been referred to an [facility] hospital or [facility] Medical Group provider, the hospital or clinic you have been referred to will call you to schedule your appointment. For those outside services of [facility], our referral expects will be in contact by phone or mail regarding your recently placed referral. If you have not heard anything from your referral in about 1 week, please call [phone]. Working with insurance companies can be cumbersome, but we are dedicated to processing your referral timely and efficiently. Please know you have a caring and competent team working on your behalf [facility] continuum of care as quickly as possible. AL INSTRUMENT MAKER * Attachments The following attachments cannot be sent through Care Everywhere. * Shoulder Pain Discharge Instructions (Tajik) documented in this encounter [...] that the same confidentiality and information systems project manager practices apply. The patient joined the video visit from Vehicle. I completed the virtual visit from Office. The following clinical staff helped with this visit MA: Carolyne Mendoza Total Time Spent in Minutes: 40 Patient in the [facility] at time of this visit. ROS: Review of Systems Medications: Current Outpatient Medications: amLODIPine (NORVASC) 10 MG tablet, TAKE 1 TABLET(10 MG) BY MOUTH DAILY, Disp: 90 tablet, Rfl: 1 azelastine (ASTELIN) 0.1 % nasal spray, USE 1 SPRAY IN EACH NOSTRIL TWICE DAILY DIRECTED, Disp: 90 mL, Rfl: 1 Blood Glucose Monitoring Suppl ([employer] VERIO REFLECT) w/Device Kit, 1 Units by [...] daily., Disp: 90 tablet, Rfl: 1 Lancets ([employer] DELICA PLUS [id number]) [facility], USE 1 LANCET TO PRICK FINGER TWICE [...] 45 g, Rfl: 4 TRUEplus Lancets 33G [facility], , Disp: , Rfl: vilazodone (VIIBRYD) 10 [...] History: Diagnosis Date Allergy Arthrogryposis Diabetes mellitus ([facility]) Hyperlipidemia Hypertension Obstructive sleep apnea Personal history of (corrected) gastroschisis Past Surgical History: Procedure Laterality Date APPENDECTOMY as a baby along with gastroschisis COLONOSCOPY N/A 08/26/2021 COLONOSCOPY WITH POLYPECTOMY performed by Bob Oneal MD at [facility] OR COLONOSCOPY N/A 09/02/2023 Colonoscopy with Biopsy performed by Bob Oneal MD at [facility] OR SEPTOPLASTY SMALL INTESTINE SURGERY Social [...] Resource Strain: Low Risk (07/27/2022) Received from [facility] imagine, [facility] imagine Overall Financial Resource Strain (CARDIA) Difficulty of Paying Living Expenses: Not hard at all Food Insecurity: No Food Insecurity (07/27/2022) Received from [facility] Hunger Vital Sign Worried About Running Out of Food in the Last Year: Never true Ran Out of Food in the Last Year: Never true Transportation Needs: No Transportation Needs (07/27/2022) Received from [facility] PRAPARE - Transportation Lack of Transportation (Medical): No Lack of Transportation (Non-Medical): No Stress: No Stress Concern Present (07/27/2022) Received from [facility] Occupational [facility] - Occupational Stress Questionnaire Feeling of Stress : Not at all Housing Stability: High Risk (07/27/2022) Received from [facility] Housing Stability Vital Sign Unable to Pay [...] 40 mg Ambulatory referral to Orthopedics ( [place]) 2. Mild episode of recurrent major depressive [...] mg - Ambulatory referral to Orthopedics ( [place]) 2. Mild episode of recurrent major depressive [...] the day of the encounter. This includes klbt-of-xsmj and ebd-mgxz-py-face time I provided on the day of [...] ref. provider found PCP: PANKAJ ROSENBERG MD AL INSTRUMENT MAKER documented in this encounter Plan of Treatment Upcoming Encounters Date Type Department Care Team (Late st Contact Info) Description 05/15/2024 3:30 PM DENTAL INSTRUMENT [place] [address] Pankaj Rosenberg MD [address] [place] [address] [phone] 05/25/2024 12:45 PM DENTAL INSTRUMENT MAKER Office Visit [facility] Physical Therapy [address] [place] [address] [phone] Pankaj Rosenberg MD [address] [place] [address] Maya Magaña, [place] [address] 05/30/2024 3:40 PM DENTAL INSTRUMENT MAKER Office Visit [facility] Multispecialty Care - [place] [address] [address] [place] [address] Pankaj Rosenberg MD [address] [address] 06/20/2024 3:40 PM DENTAL INSTRUMENT MAKER [facility] - [place] [address] [address] [place] [address] Pankaj Rosenberg MD [address] [address] 06/21/2024 1:00 PM DENTAL INSTRUMENT MAKER Office Visit [facility] Orthopedic & Sports Medicine - [place] [address] [place] [address] Jose Ratliff MD 670 [facility] [phone] [place] [address] 03/27/2025 1:00 PM DENTAL INSTRUMENT MAKER Office Visit [facility] Multispecialty [facility] - [facility] 3 [facility], [address] [place] [phone] Bob Oneal MD [address] [place] [address] [address] [place] [address] Scheduled Orders Name Type Priority Associated Diagnoses Orde r Schedule MRI SHOULDER LT WO CON MRI Routine Chronic left shoulder pain Expected: 04/30/2024, Expires: 04/30/2025 Scheduled Referrals Name Type Priority Associated Diagnoses Orde r Schedule Ambulatory referral to Physical Therapy Referral Routine Chronic left shoulder pain Ordered: 04/30/2024 Ambulatory referral to Orthopedics ( [place]) Referral Routine Chronic left shoulder pain Ordered: 04/30/2024 documented as of this encounter Visit Diagnoses Diagnosis Chronic left shoulder pain- Primary Pain in joint, shoulder region Mild episode of recurrent major depressive disorder (CMS/HCC) documented in this encounter Additional Health Concerns Assessment Noted Time PHQ-9 Depression Total Score: 5 02/15/20 24 8:25 AM CDT documented as of this encounter Care Teams Information Security Risk Analyst Relationship Specialty Start Date End Date Pankaj Rosenberg MD [address] [phone] PCP - General INTERNAL MEDICINE 06/15/21 documented as of this encounter
--- OUTSIDE RECORDS SUMMARY | 2024-05-13 11:18 | XMS_ITS | Encounter Summary ---
Author Organization [facility] Address [address] [place] [address]. [place] [address] [place] [address] Care Team Providers Care Pediatric Dietician Name Role Phone Pankaj Rosenberg MD Primary Care Provider [phone] Reason for Visit * Reason Onset Date Comments Results 08/31/2023 Returned Call 08/31/2023 Encounter Details Date Type Department Care Team (Late st Contact Info) Description 08/31/2023 Telephone [facility] Medical Group Multispecialty Care - [facility] 3 [facility], [address] [place] [phone] Carolyn Rutledge NP 3 [facility] [address] [place] [address] Results; Returned Call Social History Tobacco Use [...] file Legal Sex Male 2:58 PM FIELD ARTILLERY SENIOR SERGEANT Gender Identity Male 07/13/2021 5:19 AM FIELD ARTILLERY SENIOR SERGEANT Sexual Orientation Straight 07/13/2021 5: 19 AM FIELD ARTILLERY SENIOR SERGEANT documented as of this encounter Progress Notes * Noa Guardado - 08/31/2023 10:44 AM CDT Pt returned missed call from Mariajose Billy * Dorothea Correia MA - 08/31/2023 9:53 AM CDT LVM(results)----- Message from Carolyn Rutledge NP sent at 08/31/2023 8:30 AM CDT ----- Regarding: Notification of Unviewed Test Results Contact: See below documented in this encounter Plan of Treatment Upcoming Encounters Date Type Department Care Team (Late st Contact Info) Description 05/15/2024 3:30 PM FIELD ARTILLERY SENIOR SERGEANT [facility]ointment [facility] [place] [address] Pankaj Rosenberg MD [address] [place] [address] 05/25/2024 12:45 PM FIELD ARTILLERY SENIOR SERGEANT Office Visit [facility] Physical Therapy [address] [place] [address] Pankaj Rosenberg MD [address] [place] [address] Maya Magaña, [place] [address] 05/30/2024 3:40 PM FIELD ARTILLERY SENIOR SERGEANT Office Visit [facility] Medical Group Multispecialty Care - [place] [address] [address] [place] [address] Pankaj Rosenberg MD [address] [place] [address] [place] [address] 06/20/2024 3:40 PM FIELD ARTILLERY SENIOR SERGEANT Telemedicine [facility] Multispecialty [facility] - [place] [address] [address] [place] [address] Pankaj Rosenberg MD [address] [address] 06/21/2024 1:00 PM FIELD ARTILLERY SENIOR SERGEANT Office Visit [facility] Orthopedic & Sports Medicine - [place] [address] [place] [address] Jose Ratliff MD [address] [place] [address] [place] [address] 03/27/2025 1:00 PM FIELD ARTILLERY SENIOR SERGEANT Office Visit [facility] Multispecialty [facility] - [facility] 3 [facility] [address] [place] [address] Bob Oneal MD 3 [facility] [address] [place] [address] documented as of this encounter Visit Diagnoses Not on filedocumented in this encounter Additional Health Concerns Assessment Noted Time PHQ-9 Depression Total Score: 4 06/15/19 24 9:40 AM FIELD ARTILLERY SENIOR SERGEANT documented as of this encounter Care Teams Pediatric Dietician Relationship Specialty Start Date End Date Pankaj Rosenberg MD [address] [place] [address] PCP - General INTERNAL MEDICINE 06/15/21 documented as of this encounter
--- OUTSIDE RECORDS SUMMARY | 2024-05-13 11:18 | XMS_ITS | Encounter Summary ---
Author Organization [facility] Address [address] [place] [address]. [place], [place] [address] [place] [address] Care Team Providers Care Geographic Information Systems Director Name Role Phone Pankaj Rosenberg MD Primary Care Provider [phone] Encounter Details Date Type Department Care Team [...] on file Legal Sex Male 2:58 PM PAPER SHEETER Gender Identity Male 07/13/2021 5:19 AM PAPER SHEETER Sexual Orientation Straight 07/13/2021 5: 19 AM PAPER SHEETER documented as of this encounter Plan of Treatment Upcoming Encounters Date Type Department Care Team (Late st Contact Info) Description 05/15/2024 3:30 PM PAPER SHEETER Appointment [facility] [place] [address] Pankaj Rosenberg MD [address] [address] 05/25/2024 12:45 PM PAPER SHEETER Office Visit [facility] Physical Therapy [address] [address] Pankaj Rosenberg MD [address] [address] Maya Magaña, [place] [address] 05/30/2024 3:40 PM PAPER SHEETER Office Visit [facility] Medical [facility] Multispecialty Care - [place] [address] [address] [place] [address] Pankaj Rosenberg MD [address] [address] 06/20/2024 3:40 PM PAPER SHEETER [facility]icine [facility] - [place] [address] [address] [place] [address] Pankaj Rosenberg MD [address] [address] 06/21/2024 1:00 PM PAPER SHEETER Office Visit [facility] Medical Group Orthopedic & Sports Medicine - [place] [address] [place] [address] Jose Ratliff MD [phone] [place] [address] 03/27/2025 1:00 PM PAPER SHEETER Office Visit [facility] Medical [facility] Multispecialty Care - [facility] 3 [facility] [address] [place] [phone] Bob Oneal MD 3 [facility] [address] [place] [address] documented as of this encounter Visit Diagnoses Not on filedocumented in this encounter Additional Health Concerns Assessment Noted Time PHQ-9 Depression Total Score: 5 02/15/20 24 8:25 AM CDT documented as of this encounter Care Teams Geographic Information Systems Director Relationship Specialty Start Date End Date Pankaj Rosenberg MD [address] [address] PCP - General INTERNAL MEDICINE 06/15/21 documented as of this encounter
--- OUTSIDE RECORDS SUMMARY | 2024-05-13 11:18 | XMS_ITS | Encounter Summary ---
Author Organization [facility] Address [address] [place] [address]. [place], [place] [id number] [place] [address] Care Team Providers Care Book Jogger Name Role Phone Pankaj Rosenberg MD Primary Care Provider [phone] Reason for Referral * Imaging (Routine) - Closed Specialty Diagnoses / Procedures Referred By Contac t Referred To Contact RADIOLOGY Diagnoses Epigastric pain Generalized abdominal pain Rectal bleeding Constipation, unspecified constipation type SBO (small bowel obstruction) ([facility]) Procedures CT ABD+PEL W CON Chaparro Rutledge NP [address] [place] [address] Phone: tel: fax: Referral ID Status Reason Start Date Expiration Date Visits Re quested Visits Authorized [id number] Closed 08/09/2023 08/09/2024 1 1 Reason for Visit * Imaging (Routine) - Closed Specialty Diagnoses / Procedures Referred By Contac t Referred To Contact RADIOLOGY Diagnoses Epigastric pain Generalized abdominal pain Rectal bleeding Constipation, unspecified constipation type SBO (small bowel obstruction) ([facility]) Procedures CT ABD+PEL W CON Chaparro Rutledge NP 3 [facility] [address] [place] [address] Phone: tel: fax: Referral ID Status Reason Start Date Expiration Date Visits Re quested Visits Authorized [id number] Closed 08/09/2023 08/09/2024 1 1 Encounter Details Date Type Department Care Team (Latest Contact Info) Description 08/16/2023 12:00 PM CDT - 08/16/2023 11:59 PM CDT Hospital Encounter [facility] [address] [place] [address] Chaparro Rutledge NP 3 [facility] [address] [place] [address] Discharge Disposition: Home or Self Care (Routine [...] on file Legal Sex Male 2:58 PM HOST COORDINATOR Gender Identity Male 07/13/2021 5:19 AM HOST COORDINATOR Sexual Orientation Straight 07/13/2021 5: 19 AM HOST COORDINATOR documented as of this encounter Medications at Time of Discharge Blood Glucose Monitoring Suppl (ONETOUCH VERIO REFLECT) w/Device Kit 1 Units by Does not apply route 2 (two) times daily. 09/16/2021 CPAP DEVICE, DME,Indications:KARRIE (obstructive sleep apnea) Use daily when sleeping or taking a nap. 1 Device 08/21/2021 Lancets (ONETOUCH DELICA PLUS [id number]) Misc USE 1 LANCET TO PRICK FINGER TWICE DAILY BEFORE TESTING 09/16/2021 mupirocin (BACTROBAN) 2 % ointmentIndications: Dermatitis Apply topically 2 (two) times daily. Use on the scalp on the rash. 22 g 3 11/24/2022 TRUEplus Lancets 33G Misc 09/16/2021 amLODIPine (NORVASC) 10 MG tabletIndications:Es sential hypertension, benign,Hypertension associated with type 2 diabetes mellitus ([facility]) Take 1 tablet (10 mg total) by mouth daily. 90 tablet 1 03/09/2023 4 azelastine (ASTELIN) 0.1 % nasal sprayIndications:All ergic rhinitis, unspecified seasonality, unspecified trigger USE 1 SPRAY IN EACH NOSTRIL TWICE DAILY DIRECTED 90 mL 1 11/24/2022 4 buPROPion SR (WELLBUTRIN SR) 150 MG 12 hr tabletIndications:Re current major depressive disorder, remission status unspecified ([facility]) Take 1 tablet (150 mg total) by [...] of insulin ([facility]) Take 1 tablet (5 mg total) by mouth daily. 90 tablet 06/21/2023 4 lisinopril (PRINIVIL) 10 MG tabletIndications:Es sential hypertension, benign,Hypertension associated with type 2 diabetes mellitus ([facility]) Take 1 tablet (10 mg total) by [...] lipidemia due to type 2 diabetes mellitus ([facility]/HCC) Take 1 tablet (40 mg total) by mouth nightly at bedtime. 90 tablet 1 03/09/2023 4 documented as of this encounter Plan of Treatment Upcoming Encounters Date Type Department Care Team (Late st Contact Info) Description 05/15/2024 3:30 PM HOST COORDINATOR Appointment [facility] [place] [address] Pankaj Rosenberg MD [address] [place] [address] 05/25/2024 12:45 PM HOST COORDINATOR Office Visit [facility] Physical Therapy [address] [place] [address] Pankaj Rosenberg MD [address] [place] [address] Maya Magaña, [place] [address] 05/30/2024 3:40 PM HOST COORDINATOR Office Visit [facility] [place] [address] [address] [place] [address] Pankaj Rosenberg MD [address] [place] [address] 06/20/2024 3:40 PM HOST COORDINATOR [facility] [address] [address] [place] [address] Pankaj Rosenberg MD [address] [place] [address] 06/21/2024 1:00 PM HOST COORDINATOR Office Visit [facility] Orthopedic & Sports Medicine - [place] [address] [place] [address] Jose Ratliff MD [address] [address] [place] [address] 03/27/2025 1:00 PM HOST COORDINATOR Office Visit [facility] Multispecialty Care - [facility] [address] [facility] [address] [place] [phone] Bob Oneal MD [address] [facility] [address] [place] [address] documented as of this encounter Procedures Procedure Name Priority Date/Time Associated Diagnosis Comments CT ABD+PEL W CON Routine 08/16/2023 12:2 7 PM CDT Epigastric pain Generalized abdominal pain Rectal bleeding Constipation, unspecified constipation type SBO (small bowel obstruction) ([facility]) CREATININE WHOLE BLOOD Routine 08/16/2023 12:18 PM [...] MD, 08/17/2023 5:51 AM us Chaparro Rutledge PRINCIPAL CYBER ENGINEER CT Final Resul t * CREATININE WHOLE BLOOD (08/16/2023 12:18 PM CDT) CREATININE WHOLE BLOOD 0.7 0.70 - 1.20 mg/dL 08/17/2023 8:05 AM CDT [facility] 08/16/2023 12:1 8 PM CDT us Chaparro Rutledge PRINCIPAL CYBER ENGINEER LABORATORY Final Resul t [facility] [address] [place] [address], [place] [phone] documented in this encounter Visit Diagnoses Diagnosis [...] Total Score: 4 06/15/19 24 9:40 AM HOST COORDINATOR documented as of this encounter Care Teams Book Jogger Relationship Specialty Start Date End Date Pankaj Rosenberg MD [address] [facility] [address] [place] [address] PCP - General INTERNAL MEDICINE 06/15/21 documented as of this encounter
--- OUTSIDE RECORDS SUMMARY | 2024-05-13 11:18 | XMS_ITS | Encounter Summary ---
Author Organization [facility] Address [address] [place] [address]. [place] [address] [place] [address] Care Team Providers Care Surgical Aide Name Role Phone Pankaj Rosenberg MD Primary Care Provider [phone] Reason for Visit * Reason Onset Date Comments Refill Request 01/27/2024 Encounter Details Date Type Department Care Team (Late st Contact Info) Description 01/27/2024 Telephone [facility] Medical Group Multispecialty Care - [facility] [address] [facility] [place] [phone] Bob Oneal MD 3 [facility] [address] [place] [address] Refill Request Social History Tobacco Use Types [...] file Legal Sex Male 2:58 PM PHARMACY SERVICE ASSOCIATE Gender Identity Male 07/13/2021 5:19 AM PHARMACY SERVICE ASSOCIATE Sexual Orientation Straight 07/13/2021 5: 19 AM PHARMACY SERVICE ASSOCIATE documented as of this encounter Progress Notes * Amara Mcgarry LPN - 01/27/2024 9:51 AM CDT Pt called to r/s appt. Pt moved to 04/11/24. Script sent to pharmacy to cover until f/u documented in this encounter Plan of Treatment Upcoming Encounters Date Type Department Care Team (Late st Contact Info) Description 05/15/2024 3:30 PM PHARMACY SERVICE ASSOCIATE Appointment [facility] [place] [address] Pankaj Rosenberg MD [address] [place] [address] 05/25/2024 12:45 PM PHARMACY SERVICE ASSOCIATE Office Visit [facility] Physical Therapy [address] [place] [address] Pankaj Rosenberg MD [address] [place] [address] Maya Magaña, [place] [address] 05/30/2024 3:40 PM PHARMACY SERVICE ASSOCIATE [facility] [address] [address] Pankaj Rosenberg MD [address] [place] [address] 06/20/2024 3:40 PM PHARMACY SERVICE ASSOCIATE Telemedicine [facility] - [address] [address] Pankaj Rosenberg MD [address] [place] [address] 06/21/2024 1:00 PM PHARMACY SERVICE ASSOCIATE Office Visit [facility] Orthopedic & Sports Medicine - [place] [address] [place] [address] Jose Ratliff MD [address] [address] [place] [address] 03/27/2025 1:00 PM PHARMACY SERVICE ASSOCIATE Office Visit [facility] Multispecialty Care - [facility] [address] [facility] [place] [address] Bob Oneal MD 3 [facility] [address] [place] [address] documented as of this encounter Visit Diagnoses Diagnosis Ileitis- Primary Other and unspecified noninfectious gastroenteritis and colitis Epigastric pain Abdominal pain, epigastric Generalized abdominal pain Abdominal pain, generalized Rectal bleeding Hemorrhage of rectum and anus Constipation, unspecified constipation type SBO (small bowel obstruction) ([facility]) Unspecified intestinal obstruction documented in this encounter Additional Health Concerns Assessment Noted Time PHQ-9 Depression Total Score: 4 06/15/19 24 9:40 AM PHARMACY SERVICE ASSOCIATE documented as of this encounter Care Teams Surgical Aide Relationship Specialty Start Date End Date Pankaj Rosenberg MD [address] [facility] [address] [place] [address] PCP - General INTERNAL MEDICINE 06/15/21 documented as of this encounter
--- OUTSIDE RECORDS SUMMARY | 2024-05-13 11:18 | XMS_ITS | Encounter Summary ---
Author Organization [facility] Address [address] [place] [address]. [place], [place] [address] [place] [address] Care Team Providers Care Cena Name Role Phone Pankaj Rosenberg MD Primary Care Provider [phone] Encounter Details Date Type Department Care Team [...] file Legal Sex Male 2:58 PM AUTO DRIVER Gender Identity Male 07/13/2021 5:19 AM AUTO DRIVER Sexual Orientation Straight 07/13/2021 5: 19 AM AUTO DRIVER documented as of this encounter Plan of Treatment Upcoming Encounters Date Type Department Care Team (Late st Contact Info) Description 05/15/2024 3:30 PM AUTO DRIVER Appointment [facility] [place] [address] Pankaj Rosenberg MD [address] [address] 05/25/2024 12:45 PM AUTO DRIVER Office Visit [facility] Physical Therapy [address] [address] Pankaj Rosenberg MD [address] [address] Maya Magaña, [place] [address] 05/30/2024 3:40 PM AUTO DRIVER Office Visit [facility] Medical [facility] Multispecialty Care - [place] [address] [address] [place] [address] Pankaj Rosenberg MD [address] [address] 06/20/2024 3:40 PM AUTO DRIVER [facility] - [place] [address] [address] [place] [address] Pankaj Rosenberg MD [address] [address] 06/21/2024 1:00 PM AUTO DRIVER Office Visit [facility] Medical Group Orthopedic & Sports Medicine - [place] [address] [place] [address] Jose Ratliff MD [phone] [place] [address] 03/27/2025 1:00 PM AUTO DRIVER Office Visit [facility] Medical [facility] Multispecialty Care - [facility] [address] [facility] [place] [phone] Bob Oneal MD 3 [facility] [address] [place] [address] documented as of this encounter Visit Diagnoses Not on filedocumented in this encounter Additional Health Concerns Assessment Noted Time PHQ-9 Depression Total Score: 5 02/15/20 24 8:25 AM CDT documented as of this encounter Care Teams Cena Relationship Specialty Start Date End Date Pankaj Rosenberg MD [address] [address] PCP - General INTERNAL MEDICINE 06/15/21 documented as of this encounter
--- OUTSIDE RECORDS SUMMARY | 2024-05-13 11:18 | XMS_ITS | Encounter Summary ---
Author Organization [facility] Address [address] [place] [address]. [place], [place] [address] [place] [address] Care Team Providers Care Excavation Laborer Name Role Phone Pankaj Rosenberg MD Primary Care Provider [phone] Reason for Referral * Consultation (Routine) - Authorized Specialty Diagnoses / Procedures Referred By Contac t Referred To Contact OPHTHALMOLOGY Diagnoses Type 2 diabetes mellitus with hyperglycemia, without long-term current use of insulin ([facility]) Procedures OFFICE/OUTPATIENT NEW LOW MDM 30-44 MINUTES OFFICE/OUTPT VISIT,NEW,LEVL IV OFFICE/OUTPT VISIT,NEW,LEVL V OFFICE/OUTPT VISIT,EST,LEVL III OFFICE/OUTPT VISIT,EST,LEVL IV OFFICE/OUTPT VISIT,EST,[place] [address] [place] [address] [address] [place] [address] Phone: tel: fax: [address] [place] [address] Phone: tel: Referral ID Status Reason Start Date Expiration Date Visits Requested Visits Authorized [id number] Authorized Specialty Services 11/14/2023 12/13/2024 99 99 Reason for Visit * Reason Comments Physical Hypertension Hyperlipidemia Rash Depression Anxiety GERD Encounter Details Date Type Department Care Team (Latest Contact Info) Description 11/14/2023 3:00 PM CDT Office Visit [facility] Medical Group Multispecialty Care - [address] [place] [id number] Pankaj Rosenberg MD [address] [facility] [address] [place] [address] Physical; Hypertension; Hyperlipidemia; Rash; Depression; Anxiety; GERD [...] on file Legal Sex Male 2:58 PM GRAIN ELEVATOR MAN Gender Identity Male 07/13/2021 5:19 AM GRAIN ELEVATOR MAN Sexual Orientation Straight 07/13/2021 5: 19 AM GRAIN ELEVATOR MAN documented as of this encounter Last Filed [...] Care Everywhere. * Yearly Physical for Adults (Brazilian) documented in this encounter Progress Notes * [...] currently stable on azelastine nasal spray and kswx-kgg-kgbywvj antihistamines with stable symptoms. She recently saw [...] List Diagnosis Mixed hyperlipidemia Traumatic brain injury ([facility] HHS/HCC) Nonalcoholic steatohepatitis Gallbladder polyp Fracture of spinous process of cervical vertebra ([facility] HHS/HCC) Essential hypertension, benign Deviated nasal septum Allergic rhinitis Arthrogryposis Type 2 diabetes mellitus with hyperglycemia, without long-term current use of insulin ([facility] HHS/HCC) Gastroesophageal reflux disease without esophagitis Nausea and vomiting, unspecified vomiting type Change in bowel function Epigastric burning sensation KARRIE (obstructive sleep apnea) History of gastroschisis Hypertrophy of nasal turbinates S/P exploratory laparotomy S/P small bowel resection Generalized abdominal pain Rectal bleeding Epigastric pain Constipation, unspecified constipation type SBO (small bowel obstruction) ([facility]) Polyp of gallbladder Hyperlipidemia due to type 2 diabetes mellitus ([facility]) Folliculitis Mild episode of recurrent major depressive disorder ([facility]) Hypertension associated with type 2 diabetes mellitus ([facility]) General Health: good Dental Health: Sees dentist [...] History: Diagnosis Date Allergy Arthrogryposis Diabetes mellitus ([facility]/HCC [facility]) Hyperlipidemia Hypertension Obstructive sleep apnea Personal history of (corrected) gastroschisis Past Surgical History: Procedure Laterality Date APPENDECTOMY as a baby along with gastroschisis COLONOSCOPY N/A 08/26/2021 COLONOSCOPY WITH POLYPECTOMY performed by Bob Oneal MD at [facility] OR COLONOSCOPY N/A 09/02/2023 Colonoscopy with Biopsy performed by Bob Oneal MD at [facility] OR SEPTOPLASTY SMALL INTESTINE SURGERY Family History [...] Resource Strain: Low Risk (07/27/2022) Received from [employer] Overall Financial Resource Strain (CARDIA) Difficulty of Paying Living Expenses: Not hard at all Food Insecurity: No Food Insecurity (07/27/2022) Received from [employer] Hunger Vital Sign Worried About Running Out of Food in the Last Year: Never true Ran Out of Food in the Last Year: Never true Transportation Needs: No Transportation Needs (07/27/2022) Received from [employer] PRAPARE - Transportation Lack of Transportation (Medical): No Lack of Transportation (Non-Medical): No Physical Activity: Not on file Stress: No Stress Concern Present (07/27/2022) Received from [employer] [facility] - Occupational Stress Questionnaire Feeling of Stress : Not at all Social Connections: Not on file Intimate Partner Violence: Not on file Housing Stability: High Risk (07/27/2022) Received from [facility] [employer], [facility] Housing Stability Vital Sign Unable to Pay [...] 90 mL 1 Blood Glucose Monitoring Suppl (GlocalReach REFLECT) w/Device Kit 1 Units by Does [...] by mouth daily. 90 tablet 1 Lancets (TagaPetUCH DELICA PLUS [id number]) [place] USE 1 LANCET TO PRICK FINGER TWICE [...] Visit Medication Sig Blood Glucose Monitoring Suppl (dotSyntax VERIO REFLECT) w/Device Kit 1 Units by Does not apply route 2 (two) times daily. CPAP DEVICE, DME, Use daily when sleeping or taking a nap. Lancets (dotSyntax DELICA PLUS [id number]) Misc USE 1 LANCET TO PRICK FINGER [...] smoking/second hand smoking. Patient will set up [employer]. Patient will fax over any remaining outside [...] hyperglycemia, without long-term current use of insulin ([facility] HHS/HCC) - Controlled and stable - - [...] Hypertension associated with type 2 diabetes mellitus ([facility] HHS/HCC) - Controlled - Patient currently controlled [...] Hyperlipidemia due to type 2 diabetes mellitus ([facility]/HCC [facility]) - Continue pravastatin (PRAVACHOL) 40 MG tablet; Take 1 tablet (40 mg total) by mouth nightly at bedtime. Need for tgpyacmnku-hvxwhjq-aihjimwbm (Tdap) vaccine - [25661] Adacel (Tdap) Need for prophylactic vaccination against human papillomavirus - [08127] Gardasil 9 (HPV) Environmental allergies - Stable [...] the day of the encounter. This includes afur-tl-ygwj and ncw-gjcq-jp-face time I provided on the day of the encounter & excludes time spent performing separately reportable services. DRAGON: This dictation was at least in part performed using [employer] and there may be some inherent flaws in this upholstery auto trimmer due to the nature of this program. MD Pankaj QUEVEDO MD Internal Medicine [facility] documented in this encounter Plan of Treatment Upcoming Encounters Date Type Department Care Team (Late st Contact Info) Description 05/15/2024 3:30 PM GRAIN ELEVATOR MAN Appointment [facility] [place] [address] [place] [address] [place] [address] 05/25/2024 12:45 PM GRAIN ELEVATOR MAN Office Visit [facility] Physical Therapy [address] [address] Pankaj Rosenberg MD [address] [address] Maya Magaña, [place] [address] 05/30/2024 3:40 PM GRAIN ELEVATOR MAN Office Visit [facility] Medical [facility] Multispecialty [facility] [address] [address] [place] [address] Pankaj Rosenberg MD [facility] [address] 06/20/2024 3:40 PM GRAIN ELEVATOR MAN [facility] [address] [address] [place] [address] Pankaj Rosenberg MD [address] [address] 06/21/2024 1:00 PM GRAIN ELEVATOR MAN Office Visit [facility] Medical Group Orthopedic & Sports Medicine - [place] [address] [place] [address] Jose Ratliff MD [address] [place] [address] 03/27/2025 1:00 PM GRAIN ELEVATOR MAN Office Visit [facility] Medical [facility] Multispecialty Care - [facility] [address] [facility] [address] [place] [phone] Bob Oneal MD [address] [facility] [address] [place] [address] Scheduled Referrals Name Type Priority Associated Diagnoses Orde r Schedule Ambulatory Referral to Ophthalmology Referral Routine Type 2 diabetes mellitus with hyperglycemia, without long-term current use of insulin ([facility]) Ordered: 11/14/2023 documented as of this encounter Procedures Procedure Name Priority Date/Time Associated Diagnosis Comments VENIPUNC ARM DRAW Routine 11/14/2023 3:4 1 PM CDT Annual physical exam General medical exam URINALYSIS AUTO DIP Routine 11/14/2023 Annual physical exam General medical exam ALBUMIN URINE RANDOM W/CREATININE Routine 11/14/2023 Type 2 diabetes mellitus with hyperglycemia, without long-term current use of insulin ([facility]) documented in this encounter Results * (ABNORMAL) CBC W/DIFF AUTOMATED (11/30/2023 9:12 AM CDT) WBC 6.20 4.00 - 10.80 x10'3/uL 11/30/2023 4:27 PM CDT [facility] RBC 5.14 4.50 - 6.10 x10'6/uL 11/30/2023 4:27 PM CDT [facility] HGB 13.7 13.0 - 18.0 G/DL 11/30/2023 4:27 PM CDT [facility] HCT 42.5 37.0 - 52.0 % 11/30/2023 4:27 PM CDT [facility] MCV 82.7 78.0 - 100.0 FL 11/30/2023 4:27 PM CDT [facility] MCH 26.7(L) 27.0 - 31.0 PG 11/30/2023 4:27 PM CDT [facility] MCHC 32.2(L) 33.0 - 36.0 G/DL 11/30/2023 4:27 PM CDT [facility] RDW 13.7 11.5 - 14.5 % 11/30/2023 4:27 PM CDT [facility] PLT 330 150 - 350 x10'3/uL 11/30/2023 4:27 PM CDT [facility] MPV 10.4 7.4 - 10.4 FL 11/30/2023 4:27 PM CDT [facility] DIFFERENTIAL TYPE AUTOMATED DIFFERENTIAL 11/30/2023 4:27 PM CDT [facility] NEUTROPHILS % 61.6 % 11/30/2023 4:27 PM CDT [facility] LYMPHOCYTES % 26.1 % 11/30/2023 4:27 PM CDT [facility] MONOCYTES % 9.0 % 11/30/2023 4:27 PM CDT [facility] EOSINOPHILS % 2.3 % 11/30/2023 4:27 PM CDT [facility] BASOPHILS % 0.5 % 11/30/2023 4:27 PM CDT [facility] IMMATURE GRANS % 0.5 % 11/30/2023 4:27 PM CDT [facility] ABS. NEUTROPHILS 3.82 1.60 - 8.30 x10'3/uL 11/30/2023 4:27 PM CDT [facility] ABS. LYMPHOCYTES 1.62 0.80 - 4.70 x10'3/uL 11/30/2023 4:27 PM CDT [facility] ABS. MONOCYTES 0.56 0.00 - 1.50 x10'3/uL 11/30/2023 4:27 PM CDT [facility] ABS. EOSINOPHILS 0.14 0.00 - 0.40 x10'3/uL 11/30/2023 4:27 PM CDT [facility] ABS. BASOPHILS 0.03 0.00 - 0.20 x10'3/uL 11/30/2023 4:27 PM CDT [facility] ABS. IMMATURE GRANULOCYTES 0.03 0.00 - 0.03 x10'3/uL 11/30/2023 4:27 PM CDT [facility] 11/30/2023 9:12 AM CDT Pankaj Rosenberg MD LABORATORY Final Result -[facility] [address] [place] [address], * (ABNORMAL) COMPREHENSIVE METABOLIC PANEL (11/30/2023 9:12 AM CDT) [facility] SODIUM S/P/B 138 136 - 145 MMOL/L 11/30/2023 3:42 PM CDT -[facility] POTASSIUM S/P/B 4.6 3.5 - 5.1 MMOL/L 11/30/2023 3:42 PM CDT -[facility] CHLORIDE S/P/B 102 98 - 107 MMOL/L 11/30/2023 3:42 PM CDT -[facility] CO2 26.6 21 - 32 MMOL/L 11/30/2023 3:42 PM CDT -[facility] GLUCOSE 108(H) 70 - 99 MG/DL 11/30/2023 3:42 PM CDT [facility] BUN 14 7 - 18 MG/DL 11/30/2023 3:42 PM CDT -[facility] CREATININE S/P/B 0.85 0.70 - 1.30 MG/DL 11/30/2023 3:42 PM CDT [facility] CALCIUM S/P/B 9.1 8.4 - 10.5 MG/DL 11/30/2023 3:42 PM CDT [facility] BILIRUBIN TOTAL S/P/B 0.5 0.2 - 1.0 MG/DL 11/30/2023 3:42 PM CDT [facility] ALKALINE PHOSPHATASE S/P/B 115 45 - 115 U/L 11/30/2023 3:42 PM CDT [facility] AST 19 15 - 37 U/L 11/30/2023 3:42 PM CDT [facility] ALT 55 16 - 63 U/L 11/30/2023 3:42 PM CDT [facility] TOTAL PROTEIN S/P/B 7.8 6.4 - 8.2 G/DL 11/30/2023 3:42 PM T [facility] ALBUMIN S/P/B 3.8 3.4 - 5.0 G/DL 11/30/2023 3:42 PM CDT [facility] ANION GAP 9.4 5 - 15 MMOL/L 11/30/2023 3:42 PM CDT [facility] Comment:REFERENCE RANGE NOT ESTABLISHED OSMOLALITY (CALC) 287 MOSM/KG 024 3:42 PM T [facility] Comment:REFERENCE RANGE NOT ESTABLISHED GFR ESTIMATE >90 >90 ML/MIN/1. 73 M2 11/30/2023 3:42 PM CDT [facility] GFR NOTES GFR REFERENCE S: 11/30/2023 3:42 PM T [facility] Comment: THE ESTIMATED GFR IS CALCULATED [...] us Pankaj Rosenberg MD LABORATORY Final Result -[facility] [address] [place] [address], * (ABNORMAL) LIPID PANEL (11/30/2023 9:12 AM CDT) CHOLESTEROL 146 <200 MG/DL 11/30/2023 3:42 PM CDT [facility] TRIGLYCERIDES 131 <150 MG/DL 11/30/2023 3:42 PM CDT [facility] HDL 39(L) >40 MG/DL 11/30/2023 3:42 PM CDT [facility] LDL-C 81 <100 MG/DL 11/30/2023 3:42 PM CDT [facility] VLDL CALCULATION 26 5 - 28 MG/DL 11/30/2023 3:42 PM CDT [facility] CHOL/HDL RATIO 3.7 0.0 - 4.0 11/30/2023 3:42 PM CDT [facility] LDL/HDL 2.1 0.41 - 2.13 11/30/2023 3:42 PM CDT [facility] NON HDL CHOLESTEROL 107 <140 MG/DL 11/30/2023 3:42 PM CDT [facility] 11/30/2023 9:12 AM CDT Pankaj Rosenberg MD LABORATORY Final Result [facility] [address] [place] [address], * TSH W/REFLEX (11/30/2023 9:12 AM CDT) TSH 1.753 0.358 - 3.740 uIU/ML 11/30/2023 3:42 PM CDT [facility] 11/30/2023 9:12 AM CDT Pankaj Rosenberg MD LABORATORY Final Result Performing Organization Address City/[facility]/ZIP Co de Phone Number [facility] [address] [place] [address], [place] [phone] * (ABNORMAL) HEMOGLOBIN, GLYCOSYLATED (11/30/2023 9:12 AM CDT) HGB A1C 6.0 4.5 - 6.2 % 11/30/2023 7:35 PM CDT [facility] ESTIMATED AVG GLUCOSE 126(H) 74 - 106 MG/DL 11/30/2023 7:35 PM CDT [facility] 11/30/2023 9:12 AM CDT Pankaj Rosenberg MD LABORATORY Final Result Performing Organization Address [facility] Co de Phone Number [facility] [address] [place] [address], [place] [phone] * ALBUMIN URINE RANDOM W/CREATININE (11/14/2023) MICROALBUMIN (U) 10 MG- [address], [facility] CREATININE RANDOM (U) 100 [address], [facility] MICROALB/CREAT <30 MG-[address], [facility] URINE SPECIMEN / Unknown 11/14/2023 Pankaj Rosenberg MD URINE ORDERABLES Final Result Performing Organization Address City/[facility]/ZIP Co de Phone Number MG-[address], [place] [address] [place] [address], [place] [phone] * URINALYSIS AUTO DIP (11/14/2023) COLOR (U) DARK YELLOW YELLOW [address], [facility] TRANSPARENCY CLEAR CLEAR [address], [facility] GLUCOSE (U) NEGATIVE NEGATIVE MG/DL [address], [facility] BILIRUBIN (U) NEGATIVE NEGATIVE MG-[address], [facility] KETONES MG/DL (U) NEGATIVE NEGATIVE MG/DL [address], [facility] SPECIFIC GRAVITY (U) 1.020 1.001 - 1.035 [address], [facility] BLOOD (U) NEGATIVE NEGATIVE MG-[address], [facility] U PH 6.5 5.0 - 9.0 [address], [facility] PROTEIN (U) NEGATIVE NEGATIVE mg/dL MG-[address], [facility] UROBILINOGEN 1.0 0.2 - 1.0 EU/dL = mg/dL MG-[address], [facility] NITRITES NEGATIVE NEGATIVE MG/DL MG-[address], [facility] LEUKOCYTES (U) NEGATIVE NEGATIVE MG-[address], [facility] URINE SPECIMEN OBTAINED BY CLEAN CATCH PROCEDURE / Unknown 11/14/2023 Pankaj Rosenberg MD URINE ORDERABLES Final Result [address], [facility] [address] [place] [address], [place] [phone] documented in this encounter Visit Diagnoses Diagnosis Annual physical exam- Primary Routine general medical examination at a health care facility General medical exam Unspecified general medical examination Screening for diabetes mellitus Screening for hyperlipidemia Screening for lipoid disorders Screening for hypothyroidism Screening for thyroid disorder Type 2 diabetes mellitus with hyperglycemia, without long-term current use of insulin ([facility] HHS/[facility]) Gastroesophageal reflux disease without esophagitis Esophageal reflux Hypertension associated with type 2 diabetes mellitus ([facility] HHS/[facility]) Mild episode of recurrent major depressive disorder ([facility]) Folliculitis Other specified disease of hair and hair follicles Acne vulgaris Other acne Mixed hyperlipidemia Essential hypertension, benign Hyperlipidemia due to type 2 diabetes mellitus ([facility] HHS/[facility]) Need for dbfaaunevn-buihuzb-zxzcqcozf (Tdap) vaccine Need for prophylactic vaccination with combined zijvehbjiu-wupbbdb-dionuywls (DTP) vaccine Need for prophylactic vaccination against human papillomavirus Need for prophylactic vaccination and inoculation against other viral diseases Environmental allergies Allergic rhinitis, cause unspecified Allergic rhinitis, unspecified seasonality, unspecified trigger documented in this encounter Additional Health Concerns Assessment Noted Time PHQ-9 Depression Total Score: 4 06/15/19 24 9:40 AM GRAIN ELEVATOR MAN documented as of this encounter Care Teams Excavation Laborer Relationship Specialty Start Date End Date Pankaj Rosenberg MD [address] [address] PCP - General INTERNAL MEDICINE 06/15/21 documented as of this encounter
--- OUTSIDE RECORDS SUMMARY | 2024-05-13 11:18 | XMS_ITS | Encounter Summary ---
Author Organization [facility] Address [address] [place] [address] Care Team Providers Care Cobol Engineer Name Role Phone Unavailable Primary Care Provider Unavailabl e Encounter Details Date Type Department Care Team (Late st Contact Info) Description 10/17/2013 Abstract [facility] Trauma and General Surgery [address] [facility] [address] [place] [address] Armando Wheatley MD [address] [facility] [address] [facility] [place] [address] Social History Tobacco Use Types Packs/Day Years Used Date Smoking Tobacco: Never Smokeless Tobacco: Current Chew Alcohol Use Standard Drinks/Week Comments Yes 0 (1 standard drink = 0.6 oz pur e alcohol) occasional Sex and Gender Information Value Date Recorded Sex Assigned at Not on file Gender Identity Not on file Sexual Orientation Not on file documented as of this encounter Plan of Treatment Not on file documented as of this encounter Visit Diagnoses Not on filedocumented in this encounter
--- OUTSIDE RECORDS SUMMARY | 2024-05-13 11:18 | XMS_ITS | Encounter Summary ---
Author Organization [facility] Address [address] [place] [address]. [place], [place] [address] [place] [address] Care Team Providers Care Director Radio Name Role Phone Pankaj Rosenberg MD Primary Care Provider [phone] Reason for Visit * Reason Onset Date Comments Other 04/23/2024 Encounter Details Date Type Department Care Team (Late st Contact Info) Description 04/23/[address] [facility] Medical Group Multispecialty Care - [place] [address] [address] [place] [address] Pankaj Rosenberg MD [address] [place] [address] [address] [place] [address] Other Social History Tobacco Use [...] on file Legal Sex Male 2:58 PM ACTUARIAL ASSOCIATE Gender Identity Male 07/13/2021 5:19 AM ACTUARIAL ASSOCIATE Sexual Orientation Straight 07/13/2021 5: 19 AM ACTUARIAL ASSOCIATE documented as of this encounter Progress Notes * Isela Daily MA - 04/23/2024 2:01 PM CST Patient called to reschedule his appt for next Tuesday and is wondering if Dr Rosenberg can go ahead andorder an MRI of his left shoulder. ARIAL ASSOCIATE documented in this encounter Plan of Treatment Upcoming Encounters Date Type Department Care Team (Late st Contact Info) Description 05/15/2024 3:30 PM ACTUARIAL ASSOCIATE Appointment [facility] [place] [address] Pankaj Rosenberg MD [address] [place] [address] 05/25/2024 12:45 PM ACTUARIAL ASSOCIATE Office Visit [facility] Physical Therapy [address] [place] [address] Pankaj Rosenberg MD [address] [place] [address] Maya Magaña, [place] [address] 05/30/2024 3:40 PM ACTUARIAL ASSOCIATE Office Visit [facility] Medical [facility] Multispecialty Care - [address] [address] Pankaj Rosenberg MD [facility] [address] 06/20/2024 3:40 PM ACTUARIAL ASSOCIATE Telemedicine [facility] Multispecialty Care - [place] [address] [address] [place] [address] Pankaj Rosenberg MD [facility] [address] [address] 06/21/2024 1:00 PM ACTUARIAL ASSOCIATE Office Visit [facility] Medical Group Orthopedic & Sports Medicine - [address] [place] [address] Jose Ratliff MD [address] [address] [place] [address] 03/27/2025 1:00 PM ACTUARIAL ASSOCIATE Office Visit [facility] Medical Group Multispecialty Care - [facility] [address] [place] [address] Bob Oneal MD [address] [place] [address] documented as of this encounter Visit Diagnoses Not on filedocumented in this encounter Additional Health Concerns Assessment Noted Time PHQ-9 Depression Total Score: 5 02/15/20 24 8:25 AM CDT documented as of this encounter Care Teams Director Radio Relationship Specialty Start Date End Date Pankaj Rosenberg MD [address] [address] PCP - General INTERNAL MEDICINE 06/15/21 documented as of this encounter
--- OUTSIDE RECORDS SUMMARY | 2024-05-13 11:18 | XMS_ITS | Encounter Summary ---
Author Organization [facility] Address [address] [place] [address]. [place], [place] [address] [place] [address] Care Team Providers Care Bariatric Surgeon Name Role Phone Pankaj Rosenberg MD Primary Care Provider [phone] Reason for Visit * Reason Comments Follow Up Shoulder Pain Pt states he might h ave torn something in his left shoulder states it happened a year ago, got better but has bothered him this past month. Encounter Details Date Type Department Care Team (Latest Contact Info) Description 02/15/2024 8:00 AM CDT Office Visit [facility] Multispecialty Care - [place] [address] [address] [place] [address] Pankaj Rosenberg MD [address] [place] [address] [address] [place] [address] Follow Up; Shoulder Pain (Pt states he [...] on file Legal Sex Male 2:58 PM NETWORK CONTRACT MANAGER Gender Identity Male 07/13/2021 5:19 AM NETWORK CONTRACT MANAGER Sexual Orientation Straight 07/13/2021 5: 19 AM NETWORK CONTRACT MANAGER documented as of this encounter Patient Instructions * Patient Instructions* Pankaj Rosenberg MD - 02/15/2024 8:00 AM CDT [address] [place] [address] * Attachments The following attachments cannot be sent through Care Everywhere. * Shoulder Pain Discharge Instructions (Slovak) documented in this encounter Progress Notes * [...] List Diagnosis Mixed hyperlipidemia Traumatic brain injury ([facility]/HCC HHS/HCC) Nonalcoholic steatohepatitis Gallbladder polyp Fracture of spinous process of cervical vertebra ([facility]) Essential hypertension, benign Deviated nasal septum Allergic rhinitis Arthrogryposis Type 2 diabetes mellitus with hyperglycemia, without long-term current use of insulin ([facility]) Gastroesophageal reflux disease without esophagitis Nausea and vomiting, unspecified vomiting type Change in bowel function Epigastric burning sensation KARRIE (obstructive sleep apnea) History of gastroschisis Hypertrophy of nasal turbinates S/P exploratory laparotomy S/P small bowel resection Generalized abdominal pain Rectal bleeding Epigastric pain Constipation, unspecified constipation type SBO (small bowel obstruction) ([facility]) Polyp of gallbladder Hyperlipidemia due to type 2 diabetes mellitus ([facility]) Folliculitis Mild episode of recurrent major depressive disorder ([facility]) Hypertension associated with type 2 diabetes mellitus ([facility]) Past Medical History: Diagnosis Date Allergy Arthrogryposis Diabetes mellitus ([facility]) Hyperlipidemia Hypertension Obstructive sleep apnea Personal history of (corrected) gastroschisis Past Surgical History: Procedure Laterality Date APPENDECTOMY as a baby along with gastroschisis COLONOSCOPY N/A 08/26/2021 COLONOSCOPY WITH POLYPECTOMY performed by Bob Oneal MD at [facility] OR COLONOSCOPY N/A 09/02/2023 Colonoscopy with Biopsy performed by Bob Oneal MD at [facility] OR SEPTOPLASTY SMALL INTESTINE SURGERY [...] by mouth daily. 90 tablet 1 Lancets ([employer] DELICA PLUS [id number]) [facility] USE 1 [...] the day of the encounter. This includes yako-ok-nueh and aff-kjkd-pl-face time I provided on the day of [...] was at least in part performed using [employer] and there may be some inherent flaws in this early childhood specialist due to the nature of this program. Pankaj Rosenberg MD Internal Medicine [facility]. documented in this encounter Plan of Treatment Upcoming Encounters Date Type Department Care Team (Late st Contact Info) Description 05/15/2024 3:30 PM NETWORK CONTRACT MANAGER Appointment [facility] [place] [address] Pankaj Rosenberg MD [address] [place] [address] 05/25/2024 12:45 PM NETWORK CONTRACT MANAGER Office Visit [facility] Physical Therapy [address] [place] [address] Pankaj Rosenberg MD [address] [place] [address] Maya Magaña, [place] [address] 05/30/2024 3:40 PM NETWORK CONTRACT MANAGER Office Visit [facility] Multispecialty [facility] - [place] [address] [address] [place] [address] Panakj Rosenberg MD [address] [address] 06/20/2024 3:40 PM NETWORK CONTRACT MANAGER [facility] - [place] [address] [address] [place] [address] Pankaj Rosenberg MD [address] [address] 06/21/2024 1:00 PM NETWORK CONTRACT MANAGER Office Visit [facility] Orthopedic & Sports Medicine - [place] [address] [place] [address] Jose Ratliff MD [address] [address] [place] [address] 03/27/2025 1:00 PM NETWORK CONTRACT MANAGER Office Visit [facility] Multispecialty [facility] [address] [facility] [place] [address] Bob Oneal MD [address] [facility] [address] [place] [address] documented as of this encounter Results * XR SHOULDER LT MIN 2V (02/15/2024 9:10 AM CDT) Anatomical Region Laterality Modality Shoulder Radiographic Merissa ging 02/15/2024 9:30 AM CDT Narrative 02/15/2024 10:49 AM CDT [facility] Internal [address] ??[address] [address] ??[address] EXAMINATION: XR left shoulder HISTORY: Left shoulder [...] Procedure Note Benjamin Pearce DO - 02/15/2024 [facility] Internal [address] [address] EXAMINATION: XR left shoulder HISTORY: Left shoulder [...] documented as of this encounter Care Teams Bariatric Surgeon Relationship Specialty Start Date End Date Pankaj Rosenberg MD 1188 [facility] [address] [place] [address] PCP - General INTERNAL MEDICINE 06/15/21 documented as of this encounter
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
--- OUTSIDE RECORDS SUMMARY | 2024-05-13 11:18 | XMS_ITS | Encounter Summary ---
Author Organization [facility] Address [address] [place] [address]. [place], [place] [address] [place] [address] Care Team Providers Care Metal Furnace Operator Name Role Phone Pankaj Rosenberg MD Primary Care Provider [phone] Encounter Details Date Type Department Care Team [...] on file Legal Sex Male 2:58 PM INFRASTRUCTURE TECHNICIAN Gender Identity Male 07/13/2021 5:19 AM INFRASTRUCTURE TECHNICIAN Sexual Orientation Straight 07/13/2021 5: 19 AM INFRASTRUCTURE TECHNICIAN documented as of this encounter Plan of Treatment Upcoming Encounters Date Type Department Care Team (Late st Contact Info) Description 05/15/2024 3:30 PM INFRASTRUCTURE TECHNICIAN Appointment [facility] [place] [address] Pankaj Rosenberg MD [address] [address] 05/25/2024 12:45 PM INFRASTRUCTURE TECHNICIAN Office Visit [facility] Physical Therapy [address] [address] Pankaj Rosenberg MD [address] [address] Maya Magaña, [place] [address] 05/30/2024 3:40 PM INFRASTRUCTURE TECHNICIAN Office Visit [facility] Multispecialty Care - [place] [address] [address] [place] [address] Pankaj Rosenberg MD [address] [address] 06/20/2024 3:40 PM INFRASTRUCTURE TECHNICIAN [facility] - [place] [address] [address] [place] [address] Pankaj Rosenberg MD [address] [address] 06/21/2024 1:00 PM INFRASTRUCTURE TECHNICIAN Office Visit [facility] Group Orthopedic & Sports Medicine - [place] [address] [place] [address] Jose Ratliff MD [address] [place] [address] 03/27/2025 1:00 PM INFRASTRUCTURE TECHNICIAN Office Visit [facility] Mult[facility]ty Care - [facility] [address] [facility] [place] [address] Bob Oneal MD 3 [facility] [address] [place] [address] documented as of this encounter Visit Diagnoses Not on filedocumented in this encounter Additional Health Concerns Assessment Noted Time PHQ-9 Depression Total Score: 5 02/15/20 24 8:25 AM CDT documented as of this encounter Care Teams Metal Furnace Operator Relationship Specialty Start Date End Date Pankaj Rosenberg MD [address] [address] PCP - General INTERNAL MEDICINE 06/15/21 documented as of this encounter
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
--- OUTSIDE RECORDS SUMMARY | 2024-05-13 11:18 | XMS_ITS | Encounter Summary ---
Author Organization [facility] Address [address] [place] [address]. [place] [address] [place] [address] Care Team Providers Care Package Wrapper Name Role Phone Pankaj Rosenberg MD Primary Care Provider [phone] Reason for Visit * Auth/Cert (Routine) Specialty [...] DIAGNOSTIC WITH/WITHOUT SPECIMEN BRUSH/WASH Bob Oneal MD [address] [place] [address] Phone: tel: fax: Referral ID Status Reason Start Date Expiration Date Visits Re quested Visits Authorized [id number] 1 1 Encounter Details Date Type Department Care Team (Late st Contact Info) Description 09/02/2023 11:47 AM CDT Anesthesia Event [facility] [address] [place] [address] Lisa Holt CRNA 2022 [place] [address] Anesthesia Record Procedure Summary Procedure [...] on file Legal Sex Male 2:58 PM SPEECH AND HEARING DIRECTOR Gender Identity Male 07/13/2021 5:19 AM SPEECH AND HEARING DIRECTOR Sexual Orientation Straight 07/13/2021 5: 19 AM SPEECH AND HEARING DIRECTOR documented as of this encounter OR Notes * Anesthesia Postprocedure Evaluation - Lisa Holt CRNA - 09/02/2023 12:13 PM CDT Anesthesia [...] Encounters Date Type Department Care Team (Chelle hollingwsorth Contact Info) Description 05/15/2024 3:30 PM SPEECH AND HEARING DIRECTOR Appointment [facility] [address] Pankaj Rosenberg MD [address] [address] 05/25/2024 12:45 PM SPEECH AND HEARING DIRECTOR Office Visit [facility] Physical Therapy [address] [place] [address] Pankaj Rosenberg MD [address] [place] [address] Maya Magaña, [place] [address] 05/30/2024 3:40 PM SPEECH AND HEARING DIRECTOR Office Visit [facility] Medical Group Multispecialty Care - [address] [address] Pankaj Rosenberg MD [facility] [address] 06/20/2024 3:40 PM SPEECH AND HEARING DIRECTOR Telemedicine [facility] - [address] [address] Pankaj Rosenberg MD [facility] [address] [address] 06/21/2024 1:00 PM SPEECH AND HEARING DIRECTOR Office Visit [facility] Medical Group Orthopedic & Sports Medicine - [place] [address] [place] [address] Jose Ratliff MD [address] [address] [place] [address] 03/27/2025 1:00 PM SPEECH AND HEARING DIRECTOR Office Visit [facility] Medical Group Multispecialty Care - [facility] [address] [facility] [address] [place] [address] Bob Oneal MD [address] [facility] [address] [place] [address] documented as of this encounter Visit Diagnoses [...] Total Score: 4 06/15/19 24 9:40 AM SPEECH AND HEARING DIRECTOR documented as of this encounter Care Teams Package Wrapper Relationship Specialty Start Date End Date Pankaj Rosenberg MD [address] [facility] [address] [place] [address] PCP - General INTERNAL MEDICINE 06/15/21 documented as of this encounter
--- OUTSIDE RECORDS SUMMARY | 2024-05-13 11:18 | XMS_ITS | Encounter Summary ---
Author Organization [facility] Address [address] [place] [address]. [place], [place] [address] [place] [address] Care Team Providers Care Track Laborer Name Role Phone Pankaj Rosenberg MD Primary Care Provider [phone] Encounter Details Date Type Department Care Team [...] on file Legal Sex Male 2:58 PM WAREHOUSE PRICING AND INVENTORY CLERK Gender Identity Male 07/13/2021 5:19 AM WAREHOUSE PRICING AND INVENTORY CLERK Sexual Orientation Straight 07/13/2021 5: 19 AM WAREHOUSE PRICING AND INVENTORY CLERK documented as of this encounter Plan of Treatment Upcoming Encounters Date Type Department Care Team (Late st Contact Info) Description 05/15/2024 3:30 PM WAREHOUSE PRICING AND INVENTORY CLERK Appointment [facility] [place] [address] Pankaj Rosenberg MD [address] [address] 05/25/2024 12:45 PM WAREHOUSE PRICING AND INVENTORY CLERK Office [facility] Physical Therapy [address] [address] Pankaj Rosenberg MD [address] [address] Maya Magaña, [place] [address] 05/30/2024 3:40 PM WAREHOUSE PRICING AND INVENTORY CLERK Office Visit [facility] Medical [facility] Multispecialty Care - [place] [address] [address] [place] [address] Pankaj Rosenberg MD [address] [address] 06/20/2024 3:40 PM WAREHOUSE PRICING AND INVENTORY CLERK [facility] - [place] [address] [address] [place] [address] Pankaj Rosenberg MD [address] [address] 06/21/2024 1:00 PM WAREHOUSE PRICING AND INVENTORY CLERK Office Visit [facility] Medical Group Orthopedic & Sports Medicine - [place] [address] [place] [address] Jose Ratliff MD [phone] [place] [address] 03/27/2025 1:00 PM WAREHOUSE PRICING AND INVENTORY CLERK Office Visit [facility] Medical [facility] Multispecialty Care - [facility] [address] [facility] [place] [address] Bob Oneal MD 3 [facility] [address] [place] [address] documented as of this encounter Visit Diagnoses Not on filedocumented in this encounter Additional Health Concerns Assessment Noted Time PHQ-9 Depression Total Score: 4 06/15/19 24 9:40 AM WAREHOUSE PRICING AND INVENTORY CLERK documented as of this encounter Care Teams Track Laborer Relationship Specialty Start Date End Date Pankaj Rosenberg MD [address] [address] PCP - General INTERNAL MEDICINE 06/15/21 documented as of this encounter
--- OUTSIDE RECORDS SUMMARY | 2024-05-13 11:18 | XMS_ITS | Encounter Summary ---
Author Organization [facility] Address [address] [place] [address]. [place], [place] [address] [place] [address] Care Team Providers Care Phytopathology Teacher Name Role Phone Pankaj Rosenberg MD Primary Care Provider [phone] Encounter Details Date Type Department Care Team [...] on file Legal Sex Male 2:58 PM RENDERER Gender Identity Male 07/13/2021 5:19 AM RENDERER Sexual Orientation Straight 07/13/2021 5: 19 AM RENDERER documented as of this encounter Plan of Treatment Upcoming Encounters Date Type Department Care Team (Late st Contact Info) Description 05/15/2024 3:30 PM RENDERER Appointment [facility] [place] [address] Pankaj Rosenberg MD [address] [address] 05/25/2024 12:45 PM RENDERER Office Visit [facility] Physical Therapy [address] [address] Pankaj Rosenberg MD [address] [address] Maya Magaña, [place] [address] 05/30/2024 3:40 PM RENDERER Office Visit [facility] Medical [facility] Multispecialty Care - [place] [address] [address] [place] [address] Pankaj Rosenberg MD [address] [address] 06/20/2024 3:40 PM RENDERER [facility] - [place] [address] [address] [place] [address] Pankaj Rosenberg MD [address] [address] 06/21/2024 1:00 PM RENDERER Office Visit [facility] Medical Group Orthopedic & Sports Medicine - [place] [address] [place] [address] Jsoe Ratliff MD [phone] [place] [address] 03/27/2025 1:00 PM RENDERER Office Visit [facility] Medical [facility] Multispecialty Care - [facility] [address] [facility] [address] [place] [address] Bob Oneal MD 3 [facility] [address] [place] [address] documented as of this encounter Visit Diagnoses Not on filedocumented in this encounter Additional Health Concerns Assessment Noted Time PHQ-9 Depression Total Score: 4 06/15/19 24 9:40 AM RENDERER documented as of this encounter Care Teams Phytopathology Teacher Relationship Specialty Start Date End Date Pankaj Rosenberg MD [address] [address] PCP - General INTERNAL MEDICINE 06/15/21 documented as of this encounter
--- OUTSIDE RECORDS SUMMARY | 2024-05-13 11:18 | XMS_ITS | Encounter Summary ---
Author Organization [facility] Address [address] [place] [address]. [place] [address] [place] [address] Care Team Providers Care Clinical Lab Scientist Name Role Phone Pankaj Rosenberg MD Primary Care Provider [phone] Reason for Visit * Reason Comments Lab [...] on file Legal Sex Male 2:58 PM HOUSING DEVELOPMENT SPECIALIST Gender Identity Male 07/13/2021 5:19 AM HOUSING DEVELOPMENT SPECIALIST Sexual Orientation Straight 07/13/2021 5: 19 AM HOUSING DEVELOPMENT SPECIALIST documented as of this encounter Plan of Treatment Upcoming Encounters Date Type Department Care Team (Late st Contact Info) Description 05/15/2024 3:30 PM HOUSING DEVELOPMENT SPECIALIST [facility]ointment [facility] [place] [address] Pankaj Rosenberg MD 118[address] [facility] [address] [place] [address] 05/25/2024 12:45 PM HOUSING DEVELOPMENT SPECIALIST Office Visit [facility] Physical Therapy [address] [address] Pankaj Rosenberg MD [address] [address] Maya Magaña, [place] [address] 05/30/2024 3:40 PM HOUSING DEVELOPMENT SPECIALIST [facility] Emergency Department - [place] [address] [address] [place] [address] Pankaj Rosenberg MD [address] [address] 06/20/2024 3:40 PM HOUSING DEVELOPMENT SPECIALIST Telemedicine [facility] Emergency Department - [place] [address] [address] [place] [address] Pankaj Rosenberg MD [address] [address] 06/21/2024 1:00 PM HOUSING DEVELOPMENT SPECIALIST Office Visit [facility] Orthopedic & Sports Medicine - [place] [address] [place] [address] Jose Ratliff MD [id number] [place] [address] 03/27/2025 1:00 PM HOUSING DEVELOPMENT SPECIALIST Office Visit [facility] Multispecialty Care - [facility] 3 [facility] [address] [place] [address] Bob Oneal MD 3 [facility] [address] [place] [address] documented as of this encounter Procedures Procedure [...] Total Score: 4 06/15/19 24 9:40 AM HOUSING DEVELOPMENT SPECIALIST documented as of this encounter Care Teams Clinical Lab Scientist Relationship Specialty Start Date End Date Pankaj Rosenberg MD [address] [address] PCP - General INTERNAL MEDICINE 06/15/21 documented as of this encounter
--- OUTSIDE RECORDS SUMMARY | 2024-05-13 11:18 | XMS_ITS | Encounter Summary ---
Author Organization [facility] Address [address] [place] [address]. [place], [place] [address] [place] [address] Care Team Providers Care Plastic Extruding Machine Operator Name Role Phone Pankaj Rosenberg MD Primary Care Provider [phone] Reason for Visit * Reason Comments Follow Up Encounter Details Date Type Department Care Team (Late st Contact Info) Description 04/11/2024 1:20 PM EXTERNAL RELATIONS MANAGER Office Visit [facility] Multispecialty Care - [facility] 3 [facility] [address] [place] [address] Mario Oneal MD 3 [facility] [address] [place] [address] Follow Up Social History Tobacco Use Types [...] on file Legal Sex Male 2:58 PM EXTERNAL RELATIONS MANAGER Gender Identity Male 07/13/2021 5:19 AM EXTERNAL RELATIONS MANAGER Sexual Orientation Straight 07/13/2021 5: 19 AM EXTERNAL RELATIONS MANAGER documented as of this encounter Last Filed Vital Signs Vital Sign Reading Time Taken Comments Blood Pressure 131/91 04/11/2024 1:41 PM EXTERNAL RELATIONS MANAGER Pulse 110 04/11/2024 1:41 PM EXTERNAL RELATIONS MANAGER Temperature 36.7 ??C (98.1 ??F) 04/11/2024 1:41 PM CS T Respiratory Rate 16 04/11/2024 1:41 PM EXTERNAL RELATIONS MANAGER Oxygen Saturation 96% 04/11/2024 1:41 PM EXTERNAL RELATIONS MANAGER Inhaled Oxygen Concentration - - Weight 121.1 kg (267 lb) 04/11/2024 1:41 PM EXTERNAL RELATIONS MANAGER Height 180.3 cm (5' 11 ) 04/11/2024 1:41 PM EXTERNAL RELATIONS MANAGER Body Mass Index 37.24 04/11/2024 1:41 PM EXTERNAL RELATIONS MANAGER documented in this encounter Progress Notes [...] mL, Rfl: 1 Blood Glucose Monitoring Suppl (AdvanDx VERIO REFLECT) w/Device Kit, 1 Units by [...] daily., Disp: 90 tablet, Rfl: 1 Lancets (AdvanDx DELICA PLUS [id number]) [facility], USE 1 LANCET TO PRICK FINGER TWICE [...] 45 g, Rfl: 4 TRUEplus Lancets 33G [facility], , Disp: , Rfl: vilazodone (VIIBRYD) 10 [...] POLYPECTOMY performed by Mario Oneal MD at [facility] OR COLONOSCOPY N/A 09/02/2023 Colonoscopy with Biopsy performed by Mario Oneal MD at [facility] OR SEPTOPLASTY SMALL INTESTINE SURGERY PE: Filed [...] ONEAL MD 04/12/2024 Voice recognition software utilized RNAL RELATIONS MANAGER documented in this encounter Plan of Treatment Upcoming Encounters Date Type Department Care Team (Late st Contact Info) Description 05/15/2024 3:30 PM EXTERNAL RELATIONS MANAGER Appointment [place] [address] Pankaj Rosenberg MD [address] [place] [address] 05/25/2024 12:45 PM EXTERNAL RELATIONS MANAGER Office Visit [facility] Physical Therapy [address] [place] [address] Pankaj Rosenberg MD [address] [place] [address] Myaa Magaña, [place] [address] 05/30/2024 3:40 PM EXTERNAL RELATIONS MANAGER Office Visit [facility] Multispecialty Care - [place] [address] [address] [place] [address] Pankaj Rosenberg MD 1188 [facility] 157 [place] [address] 06/20/2024 3:40 PM EXTERNAL RELATIONS MANAGER Telemedicine [facility] Multispecialty Care - [place] [address] [facility] [address] [place] [address] Pankaj Rosenberg MD 1188 [facility] 157 [place] [address] 06/21/2024 1:00 PM EXTERNAL RELATIONS MANAGER Office Visit [facility] Orthopedic & [facility] Medicine - [place] [address]70 [place] [address] Jose Ratliff MD 670 [facility] [address] [place] [address] 03/27/2025 1:00 PM EXTERNAL RELATIONS MANAGER Office Visit [facility] Multispecialty Care - [facility] 3 [facility] [place] [address] Mario Oneal MD 3 [facility] [address] [place] [address] Scheduled Orders Name Type Priority Associated Diagnoses [...] as of this encounter Care Teams Plastic Extruding Machine Operator Relationship Specialty Start Date End Date Pankaj Rosenberg MD [address] [address] PCP - General INTERNAL MEDICINE 06/15/21 documented as of this encounter
--- OUTSIDE RECORDS SUMMARY | 2024-05-13 11:18 | XMS_ITS | Encounter Summary ---
Author Organization [facility] Address [address] [place] [address]. [place], [place] [address] [place] [address] Care Team Providers Care Spares Scheduler Name Role Phone Pankaj Rosenberg MD Primary Care Provider [phone] Reason for Visit * Reason Comments Follow Up Joint injection Encounter Details Date Type Department Care Team (Latest Contact Info) Description 05/01/2024 4:00 PM CERTIFIED BENCH JEWELER TECHNICIAN Office Visit [facility] Medical Group Multispecialty Care - [place] [address] [address] [place] [address] Pankaj Rosenberg MD [address] [place] [address] [address] [place], [place] [id number] Follow Up (Joint injection ) Social History [...] on file Legal Sex Male 2:58 PM CERTIFIED BENCH JEWELER TECHNICIAN Gender Identity Male 07/13/2021 5:19 AM CERTIFIED BENCH JEWELER TECHNICIAN Sexual Orientation Straight 07/13/2021 5: 19 AM CERTIFIED BENCH JEWELER TECHNICIAN documented as of this encounter Last Filed Vital Signs Vital Sign Reading Time Taken Comments Blood Pressure 139/91 05/01/2024 4:30 PM CERTIFIED BENCH JEWELER TECHNICIAN Pulse 85 05/01/2024 4:08 PM CERTIFIED BENCH JEWELER TECHNICIAN Temperature 36.4 ??C (97.6 ??F) 05/01/2024 4:08 PM CS T Respiratory Rate 18 05/01/2024 4:08 PM CERTIFIED BENCH JEWELER TECHNICIAN Oxygen Saturation 97% 05/01/2024 4:08 PM CERTIFIED BENCH JEWELER TECHNICIAN Inhaled Oxygen Concentration - - Weight 120.4 kg (265 lb 6.4 oz) 05/01/2024 4:08 PM CERTIFIED BENCH JEWELER TECHNICIAN Height 180.3 cm (5' 11 ) 05/01/2024 4:08 PM CERTIFIED BENCH JEWELER TECHNICIAN Body Mass Index 37.02 05/01/2024 4:08 PM CERTIFIED BENCH JEWELER TECHNICIAN documented in this encounter Progress Notes * [...] List Diagnosis Mixed hyperlipidemia Traumatic brain injury ([facility]) Nonalcoholic steatohepatitis Gallbladder polyp Fracture of spinous process of cervical vertebra ([facility]) Essential hypertension, benign Deviated nasal septum Allergic rhinitis Arthrogryposis Type 2 diabetes mellitus with hyperglycemia, without long-term current use of insulin ([facility]) Gastroesophageal reflux disease without esophagitis Nausea and vomiting, unspecified vomiting type Change in bowel function Epigastric burning sensation KARRIE (obstructive sleep apnea) History of gastroschisis Hypertrophy of nasal turbinates S/P exploratory laparotomy S/P small bowel resection Generalized abdominal pain Rectal bleeding Epigastric pain Constipation, unspecified constipation type SBO (small bowel obstruction) ([facility]) Polyp of gallbladder Hyperlipidemia due to type 2 diabetes mellitus ([facility]) Folliculitis Mild episode of recurrent major depressive disorder ([facility]) Hypertension associated with type 2 diabetes mellitus ([facility]) Past Medical History: Diagnosis Date Allergy Arthrogryposis Diabetes mellitus ([facility]) Hyperlipidemia Hypertension Obstructive sleep apnea Personal history of (corrected) gastroschisis Past Surgical History: Procedure Laterality Date APPENDECTOMY as a baby along with gastroschisis COLONOSCOPY N/A 08/26/2021 COLONOSCOPY WITH POLYPECTOMY performed by Bob Oneal MD at [facility] OR COLONOSCOPY N/A 09/02/2023 Colonoscopy with Biopsy performed by Bob Oneal MD at [facility] OR SEPTOPLASTY SMALL INTESTINE SURGERY [...] 90 mL 1 Blood Glucose Monitoring Suppl (Netsocket VERIO REFLECT) w/Device Kit 1 Units by [...] by mouth daily. 90 tablet 1 Lancets (DailyPathUCH DELICA PLUS [id number]) [facility] USE 1 [...] Risks discussed: Pain Alternatives discussed: No treatment [place] protocol: Procedure explained and questions answered to [...] the day of the encounter. This includes grac-tn-tyhr and dvz-ymrx-dw-face time I provided on the day of [...] was at least in part performed using [employer] and there may be some inherent flaws in this farm management adviser due to the nature of this program. Pankaj Rosenberg MD Internal Medicine [facility], [facility]. IFIED BENCH JEWELER TECHNICIAN documented in this encounter Plan of Treatment Upcoming Encounters Date Type Department Care Team (Late st Contact Info) Description 05/15/2024 3:30 PM CERTIFIED BENCH JEWELER TECHNICIAN Appointment [facility] [place] [address] Pankaj Rosenberg MD [address] [place] [address] 05/25/2024 12:45 PM CERTIFIED BENCH JEWELER TECHNICIAN Office Visit [facility] Physical Therapy [address] [place] [address] Pankaj Rosenberg MD [address] [place] [address] Maya Magaña, [place] [address] 05/30/2024 3:40 PM CERTIFIED BENCH JEWELER TECHNICIAN Office Visit [facility] Medical [facility] Multispecialty Care - [address] [address] Pankaj Rosenberg MD [address] [place] [address] 06/20/2024 3:40 PM CERTIFIED BENCH JEWELER TECHNICIAN Telemedicine [facility] Medical [facility] Multispecialty Care - [place] [address] [place] [address] Pankaj Rosenberg MD [address] [place] [address] 06/21/2024 1:00 PM CERTIFIED BENCH JEWELER TECHNICIAN Office Visit [facility] Orthopedic & Sports Medicine - [place] [address] [place] [address] Jose Ratliff MD [address] [address] [place] [address] 03/27/2025 1:00 PM CERTIFIED BENCH JEWELER TECHNICIAN Office Visit [facility] Multispecialty Care - [facility] [address] [facility] [address] [place] [address] Bob Oneal MD [address] [facility] [address] [place] [address] documented as of this encounter Procedures Procedure Name Priority Date/Time Associated Diagnosis Comments DRAIN/INJECT LARGE JOINT/BURSA Routine 05/01/2024 4:00 PM CERTIFIED BENCH JEWELER TECHNICIAN Chronic left shoulder pain documented in this encounter Results * DRAIN/INJECT LARGE JOINT/BURSA (05/01/2024 4:00 PM CERTIFIED BENCH JEWELER TECHNICIAN) Narrative Pankaj Rosenberg MD - 05/01/2024 4:00 PM CERTIFIED BENCH JEWELER TECHNICIAN Pankaj Rosenberg MD ? 05/01/2024 ??4:26 PM *Joint Aspiration/Injection Date/Time: 05/01/2024 4:00 PM Performed by: Pankaj Rosenberg MD Authorized by: Pankaj Rosenberg MD ?? Consent: ??Consent obtained: ??Verbal ??Consent given by: ??Patient ??Risks discussed: ??Pain ??Alternatives discussed: ??No treatment [place] protocol: ??Procedure explained and questions answered to patient or proxy's satisfaction: yes ?Relevant documents present and verified: yes ?Imaging studies available: yes ?Patient identity confirmed: ??Verbally with patient Location: ??Location: ??Shoulder ??Shoulder: ??L glenohumeral Procedure details: ??Needle gauge: ??18 G ??Ultrasound guidance: no ?Approach: ??Posterior ??Steroid injected: yes ?Specimen collected: no ?? Post-procedure details: ??Dressing: ??Sterile dressing ??Procedure completion: ??Tolerated Result [facility] Pankaj Rosenberg MD PROCEDURE/MINOR SURGICAL ORDERAB LES [...] left shoulder pain Given 05/01/2024 4:43 PM CERTIFIED BENCH JEWELER TECHNICIAN 2 mLs Left Shoulder triamcinolone acetonide (KENALOG-40) injection 80 mg 80 mg, Intra-articular, Once, 1 dose, On Tue05/01/24 at 1645, [facility] IM Administration: Give in the gluteal muscle.Indications:Chronic left shoulder pain Given 05/01/2024 4:45 PM CERTIFIED BENCH JEWELER TECHNICIAN 80 mg Left Shoulder documented in this encounter Additional Health Concerns Assessment Noted Time PHQ-9 Depression Total Score: 5 02/15/20 24 8:25 AM CDT documented as of this encounter Care Teams Spares Scheduler Relationship Specialty Start Date End Date Pankaj Rosenberg MD [address] [address] PCP - General INTERNAL MEDICINE 06/15/21 documented as of this encounter
--- OUTSIDE RECORDS SUMMARY | 2024-05-13 11:18 | XMS_ITS | Encounter Summary ---
Author Organization [facility] Address [address] [place] [address]. [place], [place] [address] [place] [address] Care Team Providers Care Fabricating Machine Operator Name Role Phone Pankaj Rosenberg MD Primary Care Provider [phone] Encounter Details Date Type Department Care Team [...] on file Legal Sex Male 2:58 PM FINANCE ASSISTANT Gender Identity Male 07/13/2021 5:19 AM FINANCE ASSISTANT Sexual Orientation Straight 07/13/2021 5: 19 AM FINANCE ASSISTANT documented as of this encounter Plan of Treatment Upcoming Encounters Date Type Department Care Team (Late st Contact Info) Description 05/15/2024 3:30 PM FINANCE ASSISTANT Appointment [facility] [place] [address] Pankaj Rosenberg MD [address] [address] 05/25/2024 12:45 PM FINANCE ASSISTANT Office Visit [facility] Physical Therapy [address] [address] Pankaj Rosenberg MD [address] [address] Maya Magaña, [place] [address] 05/30/2024 3:40 PM FINANCE ASSISTANT Office Visit [facility] Medical [facility] Multispecialty Care - [place] [address] [address] [place] [address] Pankaj Rosenberg MD [address] [address] 06/20/2024 3:40 PM FINANCE ASSISTANT [facility] - [place] [address] [address] [place] [address] Pankaj Rosenberg MD [address] [address] 06/21/2024 1:00 PM FINANCE ASSISTANT Office Visit [facility] Medical Group Orthopedic & Sports Medicine - [place] [address] [place] [address] Jose Ratliff MD [phone] [place] [address] 03/27/2025 1:00 PM FINANCE ASSISTANT Office Visit [facility] Medical [facility] Multispecialty Care - [facility] [address] [facility] [place] [phone] Bob Oneal MD 3 [facility] [address] [place] [address] documented as of this encounter Visit Diagnoses Not on filedocumented in this encounter Additional Health Concerns Assessment Noted Time PHQ-9 Depression Total Score: 4 06/15/19 24 9:40 AM FINANCE ASSISTANT documented as of this encounter Care Teams Fabricating Machine Operator Relationship Specialty Start Date End Date Pankaj Rosenberg MD [address] [address] PCP - General INTERNAL MEDICINE 06/15/21 documented as of this encounter
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
--- OUTSIDE RECORDS SUMMARY | 2024-05-13 11:18 | XMS_ITS | Encounter Summary ---
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 topical ointment (CANCELED) Topical, THREE TIMES DAILY, First dose on 08/25/13 at 1345, Until Discontinued, Routine 1345 (Canceled Entry - Provider: Veena Patel RN - Comment: not on floor available from pharmacy at this time.)1710 (Given - Provider: Veena Patel RN - Comment: left ear) 0815 (Given - Provider: Rowan Weiss RN - Comment: ear)1300 (Not Given - Provider: Rowan Weiss RN - Reason: Clarify-Other (Comment) - Comment: still has morning application applied to left ear)1737 (Given - Provider: Rowan Weiss RN - Comment: left ear) 0835 (Given - Provider: Mary Lawson, BRYANT - Comment: left ear)1348 (Given - Provider: Mary Lawson, RN - Comment: left ear)1817 (Given - Provider: Mary Lawson RN - Comment: left ear) ceFAZolin (ANCEF) IVPB 1,000 mg (COMPLETED) 1,000 mg, IV, ONE TIME ONLY, 1 dose, On 08/25/13 at 0530, Routine 0546 (New Bag - Provider: Milagros Lynch RN)0648 (Stopped - Provider: Milagros Lynch, BRYANT) ciprofloxacin in dextrose 5% (CIPRO) in dextrose ivpb 400 mg (COMPLETED) 400 mg, IV, ONE TIME ONLY, 1 dose, On 08/25/13 at 0630, Routine 0648 (New Bag - Provider: Milagros Lynch, BRYANT) 2306 (Stopped - Provider: Vidhya Orellana, BRYANT - Comment: stopped by another person) docusate sodium (COLACE) capsule 100 mg (CANCELED) 100 mg, Oral, TWO TIMES DAILY, First dose on 08/25/13 at 0900, Until Discontinued, Routine 1004 (Given - Provider: Veena Patel, BRYANT)2051 (Given - Provider: Jonathan Carmona, BRYANT) 08 (Given - Provider: Rowan Weiss, BRYANT)2038 (Given - Provider: Vidhya Orellana, BRYANT) 0832 (Given - Provider: Mary Lawson, BRYANT) enoxaparin (LOVENOX) injection 30 mg (CANCELED) 30 mg, subCUT, EVERY 12 HOURS, First dose on 08/25/13 at 0900, Until Discontinued, Routine 1004 (Given - Provider: Veena Patel, BRYANT)2052 (Given - Provider: Jonathan Carmona, BRYANT) 08 (Given - Provider: Rowan Weiss, BRYANT)2036 (Given - Provider: Vidhya Orellana, BRYANT) 0833 (Given - Provider: Mary Lawson, BRYANT) fentaNYL PF (SUBLIMAZE) 50 mcg/mL injection 50 mcg (COMPLETED) 50 mcg, IV, ONE TIME ONLY, 1 dose, On 08/25/13 at 0600, Routine 0604 (Given - Provider: Milagros Lynch, BRYANT) lidocaine-EPINEPHrine (XYLOCAINE-EPI) 2 %-1:100,000 injection 1 mL (COMPLETED) 1 mL, Infiltration, ONE TIME ONLY, 1 dose, On 08/25/13 at 1130, Stat, Please tube STAT 1130 (Admin by Another Clinician (Comment) - Provider: Veena Patel RN - Comment: given by dr. lee at bedside for bedside procedure (left ear laceration)) magnesium citrate oral solution 296 mL (COMPLETED) 296 mL, Oral, ONE TIME ONLY, 1 dose, On 08/27/13 at 1015, Routine 1110 (Given - Provider: Mary Lawson RN) ygyoagwt-nwztvoplrt-l olymyxin (NEOSPORIN) topical ointment 1 Packet (CANCELED) Topical, TWO TIMES DAILY, First dose on 08/25/13 at 0900, Until Discontinued, Routine 1004 (Given - Provider: Veena Patel RN)2052 (Given - Provider: Jonathan Carmona RN) 08 (Given - Provider: Rowan Weiss RN - Comment: scalp)2038 (Given - Provider: Vidhya Orellana RN - Comment: generalized abrasions) 0833 (Given - Provider: Mary Lawson RN - Comment: scalp) polyethylene glycol (MIRALAX) packet 17 Gram (CANCELED) 17 Gram, Oral, TWO TIMES DAILY, First dose on Tue08/26/13 at 0900, Until Discontinued, Routine 1008 (Given - Provider: Rowan Weiss RN)2034 (Given - Provider: Vidhya Orellana RN) 0832 (Given - Provider: Mary Lawson RN) sennosides (SENOKOT) tablet 17.2 mg (CANCELED) 17.2 mg, Oral, DAILY AT BEDTIME, First dose on 08/25/13 at 2100, Until Discontinued, Routine 2051 (Given - Provider: Jonathan Carmona RN) 2037 (Given - Provider: Vidhya Orellana RN) sodium chloride 0.9% bolus solution 1,000 mL (COMPLETED) 1,000 mL, IV, ONE TIME ONLY, 1 dose, On 08/25/13 at 0530, at 2,000 mL/hr, Administer over 30 Minutes, Routine 0546 (Started by Another Clinician - Provider: Milagros Lynch RN) 2307 (Stopped - Provider: Vidhay Orellana RN - Comment: stopped by another person) sodium chloride 0.9% bolus solution 1,000 mL (COMPLETED) 1,000 mL, IV, ONE TIME ONLY, 1 dose, On 08/25/13 at 0900, at 2,000 mL/hr, Administer over 30 Minutes, Routine 0901 (New Bag - Provider: Veena Patel RN)0959 (Stopped - Provider: Veena Patel RN) sodium phosphates (FLEET ADULT) enema 133 mL (COMPLETED) 133 mL, Rectal, ONE TIME ONLY, 1 dose, On 08/27/13 at 1430, Routine 1629 (Given - Provider: Mary Lawson, BRYANT) Continuous Medication Order 08/25/2013 08/26/2013 08/27/2013 sodium chloride 0.9% infusion (CANCELED) IV, at 100 mL/hr, CONTINUOUS, Starting on 08/25/13 at 0545, Until 08/25/13 at 0804, Routine 0545 (Started by Another Clinician - Provider: Veena Patel RN)0832 (Stopped - Provider: Veena Patel RN) PRN Medication Order 08/25/2013 08/26/2013 08/27/2013 acetaminophen (TYLENOL) tablet 650 mg 650 mg, Oral, EVERY 6 HOURS PRN, Starting on 08/25/13 at 0803, Until Tue08/27/13 at 2109, Temperature, For fever greater than 101, Routine 1527 (Given - Provider: Rowan Weiss RN - Comment: head ache) bisacodyl (DULCOLAX) rectal suppository 10 mg (CANCELED) 10 mg, Rectal, DAILY PRN, Starting on 08/25/13 at 0803, Until Tue08/27/13 at 2109, Constipation, Routine 1347 (Given - Provider: Mary Lawson, BRYANT) cyclobenzaprine (FLEXERIL) tablet 10 mg 10 mg, Oral, THREE TIMES DAILY PRN, Starting on 08/25/13 at 0804, Until Tue08/27/13 at 2109, Spasm, Routine 1709 (Given - Provider: Veena Patel RN) 0126 (Given - Provider: Jonathan Carmona RN)1149 (Given - Provider: Rowan Weiss RN) ibuprofen (MOTRIN) tablet 400 mg 400 mg, Oral, EVERY 6 HOURS PRN, Starting on 08/25/13 at 0803, Until 08/27/13 at 2109, Temperature, For fever greater than 101, Routine 1230 (Given - Provider: Rowan Weiss RN)2359 (Given - Provider: Vidhya Orellana RN) 0832 (Given - Provider: Mary Lawson, RN)1813 (Given - Provider: Mary Lawson RN) morphine injection 2 mg (CANCELED) 2 mg, IV, EVERY 2 HOURS PRN, Starting on 08/25/13 at 1211, Until 08/27/13 at 2109, Pain, Break-Through, Routine 1317 (Given - Provider: Veena Patel RN)1749 (Given - Provider: Veena Patel RN) 0256 (Given - Provider: Jonathan Carmona RN) morphine injection 4 mg (CANCELED) 4 mg, IV, EVERY 2 HOURS PRN, Starting on 08/25/13 at 0803, Until 08/25/13 at 1020, Pain, Break-Through, Routine 0809 (Given - Provider: Hilda Nolasco RN)1011 (Given - Provider: Veena Patel RN) oxyCODONE (ROXICODONE) tablet 15 mg (CANCELED) 15 mg, Oral, EVERY 4 HOURS PRN, Starting on 08/25/13 at 0803, Until 08/26/13 at 0744, Pain, Severe, For Pain Scale 7-10, Routine 1135 (Given - Provider: Veena Patel RN)1605 (Given - Provider: Veena Patel RN)2052 (Given - Provider: Jonathan Carmona RN) 0126 (Given - Provider: Jonathan Carmona, RN)0555 (Given - Provider: Jonathan Carmona RN) oxyCODONE (ROXICODONE) tablet 15 mg 15 mg, Oral, EVERY 3 HOURS PRN, Starting on 08/26/13 at 0745, Until 08/27/13 at 2109, Pain, Severe, For Pain Scale 7-10, Routine 0842 (Given - Provider: Rowan Weiss RN)1149 (Given - Provider: Rowan Weiss RN)1818 (Given - Provider: Rowan Weiss RN)2233 (Given - Provider: Vidhya Orellana RN) 0302 (Given - Provider: Vidhya Orellana RN)0612 (Given - Provider: Vihdya Orellana RN)1010 (Given - Provider: Mary Lawson RN) oxyCODONE (ROXICODONE) tablet 5 mg 5 mg, Oral, EVERY 3 HOURS PRN, Starting on 08/26/13 at 0743, Until 08/27/13 at 2109, Pain, For Pain Scale 1-3, Routine documented in this encounter
--- OUTSIDE RECORDS SUMMARY | 2024-05-13 11:18 | XMS_ITS | Encounter Summary ---
Author Organization [facility] Address [address] [place] [address]. [place], [place] [address] [place] [address] Care Team Providers Care Asset Protection Greeter Name Role Phone Pankaj Rosenberg MD Primary Care Provider Reason for Visit * Reason Onset Date Comments Prior Authorization 08/10/2023 [id number] Encounter Details Date Type Department Care Team (Late st Contact Info) Description 08/10/2023 Telephone [facility] Multispecialty Care - [facility] [address] [facility], [address] [place] [id number] Mario Oneal MD [address] [place] [address] [place] [id number] Prior Authorization ([id number]; [id number]/Colonoscopy -[id number]) Social History Tobacco Use Types Packs/Day Years [...] on file Legal Sex Male 2:58 PM DRILL BIT SHARPENER Gender Identity Male 07/13/2021 5:19 AM DRILL BIT SHARPENER Sexual Orientation Straight 07/13/2021 5: 19 AM DRILL BIT SHARPENER documented as of this encounter Progress Notes * Malia Ghosh MA - 08/10/2023 8:25 AM CDT Notification or Prior Authorization is not required for the requested services. This [facility] member's plan does not currently require a prior authorization forthese services. If you have general questions about the prior authorization requirements, please call us at [phone] or visit [employer] > Clinician Resources > Advance and Admission Notification Requirements. The number above acknowledges your notification. Please write this number down for future reference. Notification is not a guarantee of coverage or payment. Decision ID #: [id number] The number above acknowledges your inquiry and our response. Please write this number down and refer to it for future inquiries. Coverage and payment for an item or service is governed by the member's benefit plan document, and, if applicable, the provider's participation agreement with the Health Plan. Patient details Patient name CHUCK BARLOW Member number [id number] Group number [id number] Product POS Relationship Spouse Effective date 01/31/2023 Termination date 05/15/9999 Insurance type Commercial Verbal language preference - Written language preference - A future timeline may be available for this member. For future coverage please call the telephone number located on the back of the member's Medical ID card. Admitting/attending physician details Name Mario Oneal Tax ID number [id number] Address [address] [address] Status In network Service details Place of service Outpatient Facility/Outpatient Hospital What is place of service? Service details Surgical Facility details Name [facility] Tax ID number [id number] Address [address] [place] [address] Status In network Facility service dates [...] code details Code pointer Primary Procedure Code 48735 Description ESOPHAGOGASTRODUODENOSCOPY TRANSORAL DIAGNOSTIC Selected servicing provider The provider who is providing the service being requested. Servicing provider name MARIO ONEAL Tax ID number [id number] Address [address] [place] [address] T. [phone] Status In network Code pointer New Procedure Code 83338 Description EGD TRANSORAL BIOPSY SINGLE/MULTIPLE Selected servicing provider The provider who is providing the service being requested. Servicing provider name MARIO ONEAL Tax ID number [id number] Address [address] [place] [address] T. [phone] Status In network Code pointer New Procedure Code 17588 Description EGD DILATION GASTRIC/DUODENAL STRICTURE Selected servicing provider The provider who is providing the service being requested. Servicing provider name MARIO ONEAL Tax ID number [id number] Address [address] [place] [address] T. [phone] Status In network Code pointer New Procedure Code 58096 Description EGD FLEX REMOVAL LESION(S) BY HOT BIOPSY FORCEPS Selected servicing provider The provider who is providing the service being requested. Servicing provider name MARIO ONEAL Tax ID number [id number] Address [address] [place] [address] T. [phone] Status In network Code pointer New Procedure Code 52473 Description EGD REMOVAL TUMOR POLYP/OTHER LESION SNARE TECH Selected servicing provider The provider who is providing the service being requested. Servicing provider name MARIO ONEAL Tax ID number [id number] Address [address] [place] [address] T. [phone] Status In network Code pointer New Procedure Code 98408 Description COLONOSCOPY FLX DX W/COLLJ SPEC WHEN PFRMD Selected servicing provider The provider who is providing the service being requested. Servicing provider name MARIO ONEAL Tax ID number [id number] Address [address] [facility] [address], [place] [address] T. [phone] Status In network Code pointer New Procedure Code 19409 Description COLONOSCOPY W/BIOPSY SINGLE/MULTIPLE Selected servicing provider The provider who is providing the service being requested. Servicing provider name MARIO ONEAL Tax ID number [id number] Address [address] [facility] [address], [place] [address] T. [phone] Status In network Code pointer New Procedure Code 28165 Description COLSC FLX W/RMVL OF TUMOR POLYP LESION SNARE TQ Selected servicing provider The provider who is providing the service being requested. Servicing provider name MARIO ONEAL Tax ID number [id number] Address [address] [facility] [address], [place] [address] T. [phone] Status In network documented in this encounter Plan of Treatment Upcoming Encounters Date Type Department Care Team (Late st Contact Info) Description 05/15/2024 3:30 PM DRILL BIT SHARPENER Appointment [facility] [place] [address] Pankaj Rosenberg MD [address] [place] [address] 05/25/2024 12:45 PM DRILL BIT SHARPENER Office Visit [facility] Physical Therapy [address] [place] [address] Pankaj Rosenberg MD [address] [place] [address] Maya Magaña, [place] [address] 05/30/2024 3:40 PM DRILL BIT SHARPENER Office Visit [facility] Multispecialty Care - [place] [address] [address] [place] [address] Pankaj Rosenberg MD [address] [address] 06/20/2024 3:40 PM DRILL BIT SHARPENER [facility]medicine [facility] - [place] [address] [address] [place] [address] Pankaj Rosenberg MD [address] [address] 06/21/2024 1:00 PM DRILL BIT SHARPENER Office Visit [facility] Orthopedic & Sports Medicine - [place] [address] [place] [address] Jose Ratliff MD [address] [address] [place] [address] 03/27/2025 1:00 PM DRILL BIT SHARPENER Office Visit [facility] Multispecialty [facility] [address] [facility], [address] [place] [address] Mario Oneal MD 3 [facility] [address] [place] [address] documented as of this encounter Visit Diagnoses Not on filedocumented in this encounter Additional Health Concerns Assessment Noted Time PHQ-9 Depression Total Score: 4 06/15/19 24 9:40 AM DRILL BIT SHARPENER documented as of this encounter Care Teams Asset Protection Greeter Relationship Specialty Start Date End Date Pankaj Rosenberg MD [address] [place] [address] PCP - General INTERNAL MEDICINE 06/15/21 documented as of this encounter
--- OUTSIDE RECORDS SUMMARY | 2024-05-13 11:18 | XMS_ITS | Encounter Summary ---
Author Organization [facility] Address [address] [place] [address]. [place] [address] [place] [address] Care Team Providers Care Broadcast Operations Engineer Name Role Phone Pankaj Rosenberg MD Primary Care Provider [phone] Encounter Details Date Type Department Care Team [...] on file Legal Sex Male 2:58 PM DELIMBER OPERATOR Gender Identity Male 07/13/2021 5:19 AM DELIMBER OPERATOR Sexual Orientation Straight 07/13/2021 5: 19 AM DELIMBER OPERATOR documented as of this encounter Plan of Treatment Upcoming Encounters Date Type Department Care Team (Late st Contact Info) Description 05/15/2024 3:30 PM DELIMBER OPERATOR Appointment [facility] [place] [address] Pankaj Rosenberg MD [address] [facility] [address] [place] [address] 05/25/2024 12:45 PM DELIMBER OPERATOR Office Visit [facility] Physical Therapy [address] [place] [address] Pankaj Rosenberg MD [address] [address] Maya Magaña, [place] [address] 05/30/2024 3:40 PM DELIMBER OPERATOR Office Visit [facility] Multispecialty Care - [place] [address] [address] [place] [address] Pankaj Rosenberg MD [facility] [address] 06/20/2024 3:40 PM DELIMBER OPERATOR [facility] [place] [address] [address] [place] [address] Pankaj Rosenberg MD [facility] [address] [address] 06/21/2024 1:00 PM DELIMBER OPERATOR Office Visit [facility] Group Orthopedic & Sports Medicine - [place] [address] [place] [address] Jose Ratliff MD [address] [facility] [id number] [place] [address] 03/27/2025 1:00 PM DELIMBER OPERATOR Office Visit [facility] Medical Group Multispecialty Care - [facility] [address] [facility] [place] [address] Bob Oneal MD 3 [facility] [address] [place] [address] documented as of this encounter Visit Diagnoses Not on filedocumented in this encounter Additional Health Concerns Assessment Noted Time PHQ-9 Depression Total Score: 4 06/15/19 24 9:40 AM DELIMBER OPERATOR documented as of this encounter Care Teams Broadcast Operations Engineer Relationship Specialty Start Date End Date Pankaj Rosenberg MD [address] [address] PCP - General INTERNAL MEDICINE 06/15/21 documented as of this encounter
--- OUTSIDE RECORDS SUMMARY | 2024-05-13 11:18 | XMS_ITS | Encounter Summary ---
Author Organization [facility] Address [address] [place] [address]. [place] [address] [place] [address] Care Team Providers Care Biofuels Plant Manager Name Role Phone Pankaj Rosenberg MD Primary Care Provider [phone] Reason for Visit * Reason Onset Date Comments Medication 10/24/2023 Encounter Details Date Type Department Care Team (Late st Contact Info) Description 10/24/2023 Telephone [facility] Multispecialty Care - [facility] [address] [facility] [place] [address] Bob Oneal MD 3 [facility] [place] [address] [place] [address] Medication Social History Tobacco Use Types Packs/Day [...] on file Legal Sex Male 2:58 PM CURTAIN CLEANER Gender Identity Male 07/13/2021 5:19 AM CURTAIN CLEANER Sexual Orientation Straight 07/13/2021 5: 19 AM CURTAIN CLEANER documented as of this encounter Progress Notes * Amara Mcgarry LPN - 10/24/2023 3:35 PM CDT Pt called and new script sent to pharmacy in [place]. * Patito Corado - 10/24/2023 11:26 AM CDT Patient called today saying his pharmacy has not received the order for his new medication. He doesn't know the name. Please call him to discuss. documented in this encounter Plan of Treatment Upcoming Encounters Date Type Department Care Team (Late st Contact Info) Description 05/15/2024 3:30 PM CURTAIN CLEANER Appointment [place] [address] Pankaj Rosenberg MD [address] [place] [address] 05/25/2024 12:45 PM CURTAIN CLEANER Office Visit [facility] Physical Therapy [address] [place] [address] Pankaj Rosenberg MD [address] [place] [address] Maya Magaña, [place] [address] 05/30/2024 3:40 PM CURTAIN CLEANER [facility] [place] [address] [address] [place] [address] Pankaj Rosenberg MD [address] [place] [address] 06/20/2024 3:40 PM CURTAIN CLEANER Telemedicine [facility] - [address] [place] [address] Pankaj Rosenberg MD [address] [facility] [address] [place] [address] 06/21/2024 1:00 PM CURTAIN CLEANER Office Visit [facility] Orthopedic & Sports Medicine - [place] [address] [place] [address] Jose Ratliff MD [address] [place] [address] [place] [address] 03/27/2025 1:00 PM CURTAIN CLEANER Office Visit [facility] Multispecialty [facility] - [facility] [address] [facility] [place] [address] Bob Oneal MD 3 [facility] [address] [place] [address] documented as of this encounter Visit Diagnoses Not on filedocumented in this encounter Additional Health Concerns Assessment Noted Time PHQ-9 Depression Total Score: 4 06/15/19 24 9:40 AM CURTAIN CLEANER documented as of this encounter Care Teams Biofuels Plant Manager Relationship Specialty Start Date End Date Pankaj Rosenberg MD 1188 [facility] [address] [place] [address] PCP - General INTERNAL MEDICINE 06/15/21 documented as of this encounter
--- OUTSIDE RECORDS SUMMARY | 2024-05-13 11:18 | XMS_ITS | Encounter Summary ---
Author Organization [facility] Address [address] [place] [address]. [place] [address] [place] [address] Care Team Providers Care Screening Technician Name Role Phone Pankaj Rosenberg MD Primary Care Provider [phone] Encounter Details Date Type Department Care Team [...] on file Legal Sex Male 2:58 PM POURER CRANE LADLE Gender Identity Male 07/13/2021 5:19 AM POURER CRANE LADLE Sexual Orientation Straight 07/13/2021 5: 19 AM POURER CRANE LADLE documented as of this encounter Plan of Treatment Upcoming Encounters Date Type Department Care Team (Late st Contact Info) Description 05/15/2024 3:30 PM POURER CRANE LADLE Appointment [facility] [place] [address] Pankaj Rosenberg MD [address] [facility] [address] [place] [address] 05/25/2024 12:45 PM POURER CRANE LADLE Office Visit [facility] Physical Therapy [address] [place] [address] Pankaj Rosenberg MD [address] [address] Maya Magaña, [place] [address] 05/30/2024 3:40 PM POURER CRANE LADLE Office Visit [facility] Multispecialty Care - [place] [address] [address] [place] [address] Pankaj Rosenberg MD [facility] [address] 06/20/2024 3:40 PM POURER CRANE LADLE [facility] - [place] [address] [address] [place] [address] Pankaj Rosenberg MD [facility] [address] [address] 06/21/2024 1:00 PM POURER CRANE LADLE Office Visit [facility] Medical Group Orthopedic & Sports Medicine - [place] [address] [place] [address] Jose Ratliff MD [address] [facility] [address] [place] [address] 03/27/2025 1:00 PM POURER CRANE LADLE Office Visit [facility] Medical Group Multispecialty Care - [facility] [address] [facility] [address] [place] [address] Bob Oneal MD 3 [facility] [address] [place] [address] documented as of this encounter Visit Diagnoses Not on filedocumented in this encounter Additional Health Concerns Assessment Noted Time PHQ-9 Depression Total Score: 4 06/15/19 24 9:40 AM POURER CRANE LADLE documented as of this encounter Care Teams Screening Technician Relationship Specialty Start Date End Date Pankaj Rosenberg MD [address] [address] PCP - General INTERNAL MEDICINE 06/15/21 documented as of this encounter
--- OUTSIDE RECORDS SUMMARY | 2024-05-13 11:18 | XMS_ITS | Clinical Summary ---
Author Organization [facility] Address [address] [place] [address]. [place] [address] [place] [address] Care Team Providers Care Engine Repairer Production Name Role Phone Pankaj Rosenberg MD Primary Care Provider [phone] Allergies No known active allergies Medications CPAP DEVICE, DME,Indications:O SA (obstructive sleep apnea) Use daily when sleeping or taking a nap. 1 Device Active Blood Glucose Monitoring Suppl (ONETOUCH VERIO REFLECT) w/Device Kit 1 Units by Does not apply route 2 (two) times daily. Active Lancets (ONETOUCH DELICA PLUS [id number]) [facility] USE 1 LANCET TO PRICK FINGER TWICE [...] Hyperlipidemia due to type 2 diabetes mellitus ([facility]) 11/14/2023 Folliculitis 11/14/2023 Mild episode of recurrent major depressive disor isak 11/14/2023 Hypertension associated with type 2 diabetes mellitus ([facility]) 11/14/2023 Generalized abdominal pain 08/09/2023 Rectal bleeding 08/09/2023 Epigastric pain 08/09/2023 Constipation, unspecified constipation type 07/15 SBO (small bowel obstruction) ([facility]) 08/09/2023 Polyp of gallbladder 08/09/2023 KARRIE (obstructive sleep apnea) 11/09/2021 S/P exploratory laparotomy 09/17/2021 S/P small bowel resection 09/17/2021 History of gastroschisis 09/16/2021 Nausea and vomiting, unspecified vomiting type 0 08/04/2021 Overview (08/04/2021): Added automatically from request for surgery [id number] Change in bowel function 08/04/2021 Overview (08/04/2021): Added automatically from request for surgery [id number] Epigastric burning sensation 08/04/2021 Overview (08/04/2021): Added automatically from request for surgery [id number] Gastroesophageal reflux disease without esophagi tis 07/13/2021 Type 2 diabetes mellitus wit h hyperglycemia, without long-term current use of insulin ([facility]) 06/16/2021 Mixed hyperlipidemia 06/15/2021 Arthrogryposis 06/15/2021 Nonalcoholic steatohepatitis 12/11/2020 Gallbladder polyp 12/11/2020 Essential hypertension, benign 12/11/2020 Deviated nasal septum 12/13/2019 Overview (06/15/2021): Last Assessment & Plan: Continue nasal saline 2-3 times per day May blow nose gently Restart Allergy medications once cleared by Inner Tube Cutter PROCEDURE PERFORMED: Septoplasty Submucosal Reduction of Inferior [...] surgery. Added automatically from request for surgery [id number] Allergic rhinitis 10/22/2019 Overview (06/15/2021): Last Assessment & Plan: Continue nasal saline 2-3 times per day May blow nose gently Restart Allergy medications once cleared by Inner Tube Cutter Traumatic brain injury ([facility] 014 Fracture of spinous process of cervical vertebra ([facility]) 08/25/2013 Overview (06/15/2021): C6-7 C6-7 Assessment & Plan (06/15/2021 1:17 PM IMPORT/EXPORT CLERK): Stable with no concerns for now. Encounters Date Type Department Care Team Description 05/06/2024 Scan [place] [facility] Scanned, [facility] (SCAN) 05/06/2024 Scan [place] [facility] Scanned, [facility] (SCAN) 05/01/2024 4:00 PM IMPORT/EXPORT CLERK Office Visit [place] [address] [place] [address] [address] [address] [place] [address] Pankaj Rosenberg MD Follow Up (Joint injection ) 05/01/2024 Travel 04/30/2024 3:40 PM IMPORT/EXPORT CLERK Telemedicine [address] [place] [address] [address] [place] [address] Pankaj Rosenberg MD Follow Up (Medication f/u for vilazidone and sore shoulder ); Shoulder Pain; Depression 04/30/2024 Telephone [place] [address] [address] [place] [address] [address] [place] [address] Pankaj Rosenberg MD Information 04/23/[address] [place] [address] [address] [place] [address] Pankaj Rosenberg MD Other 04/11/2024 1:20 PM IMPORT/EXPORT CLERK Office Visit [address], [address] [place] [address] Bob Oneal MD Follow Up 04/11/2024 Travel 02/15/2024 8:00 AM CDT Office Visit [place] [address] [place] [address] [address] [place] [address] Pankaj Rosenberg MD Follow Up; Shoulder Pain [...] on file Legal Sex Male 2:58 PM IMPORT/EXPORT CLERK Gender Identity Male 07/13/2021 5:19 AM IMPORT/EXPORT CLERK Sexual Orientation Straight 07/13/2021 5: 19 AM IMPORT/EXPORT CLERK Last Filed Vital Signs Vital Sign Reading Time Taken Comments Blood Pressure 139/91 05/01/2024 4:30 PM IMPORT/EXPORT CLERK Pulse 85 05/01/2024 4:08 PM IMPORT/EXPORT CLERK Temperature 36.4 ??C (97.6 ??F) 05/01/2024 4:08 PM CS T Respiratory Rate 18 05/01/2024 4:08 PM IMPORT/EXPORT CLERK Oxygen Saturation 97% 05/01/2024 4:08 PM IMPORT/EXPORT CLERK Inhaled Oxygen Concentration - - Weight 120.4 kg (265 lb 6.4 oz) 05/01/2024 4:08 PM IMPORT/EXPORT CLERK Height 180.3 cm (5' 11 ) 05/01/2024 4:08 PM IMPORT/EXPORT CLERK Body Mass Index 37.02 05/01/2024 4:08 PM IMPORT/EXPORT CLERK Plan of Treatment Upcoming Encounters Date Type Department Care Team (Late st Contact Info) Description 05/15/2024 3:30 PM IMPORT/[place] [address] Pankaj Rosenberg MD [address] [place] [address] 05/25/2024 12:45 PM IMPORT/EXPORT CLERK Office Visit [facility] Physical Therapy [address] [place] [address] Pankaj Rosenberg MD [address] [place] [address] Maay Magaña, [place] [address] 05/30/2024 3:40 PM IMPORT/EXPORT CLERK Office Visit [facility] Multispecialty Care - [place] [address] [address] [place] [address] Pankaj Rosenberg MD [address] [address] 06/20/2024 3:40 PM IMPORT/EXPORT CLERK [facility] - [address] [place] [address] Pankaj Rosenberg MD [address] [address] 06/21/2024 1:00 PM IMPORT/EXPORT CLERK Office Visit [facility] Orthopedic & Sports Medicine - [place] [address] [place] [address] Jose Ratliff MD 670 [facility] [id number] [place] [address] 03/27/2025 1:00 PM IMPORT/EXPORT CLERK Office Visit [facility] Multispecialty Care - [facility] [address] [facility] [place] [address] Bob Oneal MD 3 [facility] [address] [place] [address] Health Maintenance Due Date Last Done Comments [...] DRAIN/INJECT LARGE JOINT/BURSA Routine 05/01/2024 4:00 PM IMPORT/EXPORT CLERK Chronic left shoulder pain XR SHOULDER LT [...] DETECTED NOT DETECTED [facility] 05/06/2024 Result [employer] Scanned SCANNING Final Resu lt [facility] * OUTSIDE LAB (SCAN ORDER) (05/06/2024) Only the most recent of3 resultswithin the time period is included. 05/06/2024 Result [facility] Scanned SCANNING Final Resu lt * DRAIN/INJECT LARGE JOINT/BURSA (05/01/2024 4:00 PM IMPORT/EXPORT CLERK) Narrative Pankaj Rosenberg MD - 05/01/2024 4:00 PM IMPORT/EXPORT CLERK Pankaj Rosenberg MD ? 05/01/2024 ??4:26 PM *Joint Aspiration/Injection Date/Time: 05/01/2024 4:00 PM Performed by: Pankaj Rosenberg MD Authorized by: Pankaj Rosenberg MD ?? Consent: ??Consent obtained: ??Verbal ??Consent given by: ??Patient ??Risks discussed: ??Pain ??Alternatives discussed: ??No treatment [place] protocol: ??Procedure explained and questions answered to [...] AM CDT Narrative 02/15/2024 10:49 AM CDT [address] ??[address] ??[address] EXAMINATION: XR left shoulder HISTORY: Left shoulder [...] Procedure Note Benjamin Pearce DO - 02/15/[address] [address] [place] [address] [place] [address] EXAMINATION: XR left shoulder HISTORY: Left shoulder [...] - 6.2 % 11/30/2023 7:35 PM CDT [facility] ESTIMATED AVG GLUCOSE 126(H) 74 - 106 MG/DL 11/30/2023 7:35 PM CDT [facility] 11/30/2023 9:12 AM CDT Pankaj Rosenberg MD LABORATORY Final Result [facility] [address] [place] [address], * (ABNORMAL) LIPID PANEL (11/30/2023 9:12 AM CDT) Pathologist [facility] CHOLESTEROL 146 <200 MG/DL 11/30/2023 3:42 PM CDT [facility] TRIGLYCERIDES 131 <150 MG/DL 11/30/2023 3:42 PM CDT [facility] HDL 39(L) >40 MG/DL 11/30/2023 3:42 PM CDT [facility] LDL-C 81 <100 MG/DL 11/30/2023 3:42 PM CDT [facility] VLDL CALCULATION 26 5 - 28 MG/DL 11/30/2023 3:42 PM CDT [facility] CHOL/HDL RATIO 3.7 0.0 - 4.0 11/30/2023 3:42 PM CDT [facility] LDL/HDL 2.1 0.41 - 2.13 11/30/2023 3:42 PM CDT [facility] NON HDL CHOLESTEROL 107 <140 MG/DL 11/30/2023 3:42 PM CDT [facility] 11/30/2023 9:12 AM CDT us Pankaj Rosenberg MD LABORATORY Final Result [facility] [address] [place] [address], [place] [phone] * HEPATITIS C ANTIBODY ([facility] ONLY) (09/22/2022 7:42 AM CDT) HEPATITIS C AB NON-REACTI VE NON-REACT RACHELLE 09/22/2022 11:59 PM CDT [facility] Comment: ANTIBODIES TO HCV NOT DETECTED. DOES NOT EXCLUDE THE POSSIBILITY OF EXPOSURE TO HCV. 09/22/2022 7:42 AM CDT us Pankaj Rosenberg MD LABORATORY Final Result [facility] [address] [place] [address], [place] [phone] [id number] * DIABETIC RETINOPATHY EXAM (NEGATIVE)(SCAN) (02/24/2022) us [facility] Scanned SCANNING Final Resu lt [facility] ONBASE from Last 3 Months or Most Recently Relevant to Health Maintenance Insurance MEDICAID DEPT OF [address] Care Teams Engine Repairer Production Relationship Specialty Start Date End Date Pankaj Rosenberg MD [address] [facility] [address] [place] [address] PCP - General INTERNAL MEDICINE 06/15/21
--- OUTSIDE RECORDS SUMMARY | 2024-05-13 11:18 | XMS_ITS | Encounter Summary ---
Author Organization [facility] - [facility] Address [address] [place] [address]. [place], [place] [id number] [place] [address] Care Team Providers Care Sap Data Architect Name Role Phone Pankaj Rosenberg MD Primary Care Provider [phone] Reason for Visit * Reason Comments Allied Health Visit Pt is here for lab w ork Encounter Details Date Type Department Care Team (Latest Contact Info) Description 11/30/2023 9:00 AM CDT Allied Health/Nurse Visit [facility] Medical Group Multispecialty Care - [place] [address] [address] [place] [address] Pankaj Rosenberg MD [address] [place] [address] [address] [place], [place] [id number] Allied Health Visit (Pt is here for [...] on file Legal Sex Male 2:58 PM FURNACE UTILITY OPERATOR Gender Identity Male 07/13/2021 5:19 AM FURNACE UTILITY OPERATOR Sexual Orientation Straight 07/13/2021 5: 19 AM FURNACE UTILITY OPERATOR documented as of this encounter Progress Notes * Isela Daily MA - 11/30/2023 9:00 AM CDT Pt is here for lab work documented in this encounter Plan of Treatment Upcoming Encounters Date Type Department Care Team (Late st Contact Info) Description 05/15/2024 3:30 PM FURNACE UTILITY OPERATOR Appointment [facility] [place] [address] Pankaj Rosenberg MD [address] [place] [address] 05/25/2024 12:45 PM FURNACE UTILITY OPERATOR Office Visit [facility] Physical Therapy [address] [place] [address] Pankaj Rosenberg MD [address] [place] [address] Maya Magaña, [place] [address] 05/30/2024 3:40 PM FURNACE UTILITY OPERATOR Office Visit [facility] Medical [facility] Multispecialty Care - [place] [address] [place] [address] Pankaj Rosenberg MD [facility] [address] [address] 06/20/2024 3:40 PM FURNACE UTILITY OPERATOR [facility] - [place] [address] [address] [place] [address] Pankaj Rosenberg MD [address] [place] [address] 06/21/2024 1:00 PM FURNACE UTILITY OPERATOR Office Visit [facility] Medical Group Orthopedic & Sports Medicine - [address] [place] [address] Jose Ratliff MD [address] [address] [place] [address] 03/27/2025 1:00 PM FURNACE UTILITY OPERATOR Office Visit [facility] Medical Group Multispecialty Care - [facility] [address] [place] [address] Bob Oneal MD [address] [facility] [address] [place] [address] documented as of this encounter Procedures Procedure [...] - 6.2 % 11/30/2023 7:35 PM CDT [facility] ESTIMATED AVG GLUCOSE 126(H) 74 - 106 MG/DL 11/30/2023 7:35 PM CDT [facility] 11/30/2023 9:12 AM CDT us Pankaj Rosenberg MD LABORATORY Final Result Performing Organization Address [facility]/ZIP Co de Phone Number [facility] [address] [place] [address], [place] [phone] * TSH W/REFLEX (11/30/2023 9:12 AM CDT) TSH 1.753 0.358 - 3.740 uIU/ML 11/30/2023 3:42 PM CDT [facility] 11/30/2023 9:12 AM CDT us Pankaj Rosenberg MD LABORATORY Final Result Performing Organization Address [facility] Co de Phone Number [address] [place] [address], [place] [phone] * (ABNORMAL) LIPID PANEL (11/30/2023 9:12 AM CDT) CHOLESTEROL 146 <200 MG/DL 11/30/2023 3:42 PM CDT [facility] TRIGLYCERIDES 131 <150 MG/DL 11/30/2023 3:42 PM CDT [facility] HDL 39(L) >40 MG/DL 11/30/2023 3:42 PM CDT [facility] LDL-C 81 <100 MG/DL 11/30/2023 3:42 PM CDT [facility] VLDL CALCULATION 26 5 - 28 MG/DL 11/30/2023 3:42 PM CDT [facility] CHOL/HDL RATIO 3.7 0.0 - 4.0 11/30/2023 3:42 PM CDT [facility] LDL/HDL 2.1 0.41 - 2.13 11/30/2023 3:42 PM CDT [facility] HDL CHOLESTEROL 107 <140 MG/DL 11/30/2023 3:42 PM CDT [facility] 11/30/2023 9:12 AM CDT Pankaj Rosenberg MD LABORATORY Final Result [facility] [place] [address] [place] [address], * (ABNORMAL) COMPREHENSIVE METABOLIC PANEL (11/30/2023 9:12 AM CDT) Pathologist [facility] SODIUM S/P/B 138 136 - 145 MMOL/L 11/30/2023 3:42 PM CDT -[facility] POTASSIUM S/P/B 4.6 3.5 - 5.1 MMOL/L 11/30/2023 3:42 PM CDT -[facility] CHLORIDE S/P/B 102 98 - 107 MMOL/L 11/30/2023 3:42 PM CDT -[facility] CO2 26.6 21 - 32 MMOL/L 11/30/2023 3:42 PM CDT [facility] GLUCOSE 108(H) 70 - 99 MG/DL 11/30/2023 3:42 PM CDT [facility] BUN 14 7 - 18 MG/DL 11/30/2023 3:42 PM CDT [facility] CREATININE S/P/B 0.85 0.70 - 1.30 MG/DL 11/30/2023 3:42 PM CDT [facility] [address] CALCIUM S/P/B 9.1 8.4 - 10.5 MG/DL 11/30/2023 3:42 PM CDT [facility] BILIRUBIN TOTAL S/P/B 0.5 0.2 - 1.0 MG/DL 11/30/2023 3:42 PM CDT [facility] [address] ALKALINE PHOSPHATASE S/P/B 115 45 - 115 U/L 11/30/2023 3:42 PM CDT [facility] [place] [address] AST 19 15 - 37 U/L 11/30/2023 3:42 PM CDT [facility] [place] ALT 55 16 - 63 U/L 11/30/2023 3:[address] [facility] [address] TOTAL PROTEIN S/P/B 7.8 6.4 - 8.2 G/DL 11/30/2023 3:[address] [facility] [address] ALBUMIN S/P/B 3.8 3.4 - 5.0 G/DL 11/30/2023 3:42 PM T [facility] ANION GAP 9.4 5 - 15 MMOL/L 11/30/2023 3:42 PM T [facility] Comment:REFERENCE RANGE NOT ESTABLISHED OSMOLALITY (CALC) 287 MOSM/KG 024 3:42 PM T [facility] Comment:REFERENCE RANGE NOT ESTABLISHED GFR ESTIMATE >90 >90 ML/MIN/1. 73 M2 11/30/2023 3:42 PM T [facility] GFR NOTES GFR REFERENCE S: 11/30/2023 3:42 PM T [facility] Comment: THE ESTIMATED GFR IS CALCULATED [...] CDT Pankaj Rosenberg MD LABORATORY Final Result [facility] [address] [place] [address], * (ABNORMAL) CBC W/DIFF AUTOMATED (11/30/2023 9:12 AM CDT) WBC 6.20 4.00 - 10.80 x10'3/uL 11/30/2023 4:27 PM CDT [facility] RBC 5.14 4.50 - 6.10 x10'6/uL 11/30/2023 4:27 PM CDT [facility] HGB 13.7 13.0 - 18.0 G/DL 11/30/2023 4:27 PM CDT [facility] HCT 42.5 37.0 - 52.0 % 11/30/2023 4:27 PM CDT [facility] MCV 82.7 78.0 - 100.0 FL 11/30/2023 4:27 PM CDT [facility] MCH 26.7(L) 27.0 - 31.0 PG 11/30/2023 4:27 PM CDT [facility] MCHC 32.2(L) 33.0 - 36.0 G/DL 11/30/2023 4:27 PM CDT [facility] RDW 13.7 11.5 - 14.5 % 11/30/2023 4:27 PM CDT [facility] PLT 330 150 - 350 x10'3/uL 11/30/2023 4:27 PM CDT [facility] MPV 10.4 7.4 - 10.4 FL 11/30/2023 4:27 PM CDT [facility] DIFFERENTIAL TYPE AUTOMATED DIFFERENTIAL 11/30/2023 4:27 PM CDT [facility] NEUTROPHILS % 61.6 % 11/30/2023 4:27 PM CDT -[facility] LYMPHOCYTES % 26.1 % 11/30/2023 4:27 PM CDT -[facility] MONOCYTES % 9.0 % 11/30/2023 4:27 PM CDT -[facility] EOSINOPHILS % 2.3 % 11/30/2023 4:27 PM CDT -[facility] BASOPHILS % 0.5 % 11/30/2023 4:27 PM CDT -[facility] IMMATURE GRANS % 0.5 % 11/30/2023 4:27 PM CDT [facility] ABS. NEUTROPHILS 3.82 1.60 - 8.30 x10'3/uL 11/30/2023 4:27 PM CDT [facility] ABS. LYMPHOCYTES 1.62 0.80 - 4.70 x10'3/uL 11/30/2023 4:27 PM CDT -[facility] ABS. MONOCYTES 0.56 0.00 - 1.50 x10'3/uL 11/30/2023 4:27 PM CDT [facility] ABS. EOSINOPHILS 0.14 0.00 - 0.40 x10'3/uL 11/30/2023 4:27 PM CDT [facility] ABS. BASOPHILS 0.03 0.00 - 0.20 x10'3/uL 11/30/2023 4:27 PM CDT [facility] ABS. IMMATURE GRANULOCYTES 0.03 0.00 - 0.03 x10'3/uL 11/30/2023 4:27 PM CDT [facility] 11/30/2023 9:12 AM CDT us Pankaj Rosenberg MD LABORATORY Final Result [facility] [address] [place] [address], documented in this encounter Visit Diagnoses Diagnosis [...] Total Score: 4 06/15/19 24 9:40 AM FURNACE UTILITY OPERATOR documented as of this encounter Care Teams Sap Data Architect Relationship Specialty Start Date End Date Pankaj Rosenberg MD [address] [address] PCP - General INTERNAL MEDICINE 06/15/21 documented as of this encounter
--- OUTSIDE RECORDS SUMMARY | 2024-05-13 11:18 | XMS_ITS | Encounter Summary ---
Author Organization [facility] Address [address] [place] [address]. [place], [place] [address] [place] [address] Care Team Providers Care Renovation Plant Supervisor Name Role Phone Pankaj Rosenberg MD Primary Care Provider [phone] Encounter Details Date Type Department Care Team [...] on file Legal Sex Male 2:58 PM INVESTIGATION CLERK Gender Identity Male 07/13/2021 5:19 AM INVESTIGATION CLERK Sexual Orientation Straight 07/13/2021 5: 19 AM INVESTIGATION CLERK documented as of this encounter Plan of Treatment Upcoming Encounters Date Type Department Care Team (Late st Contact Info) Description 05/15/2024 3:30 PM INVESTIGATION CLERK Appointment [facility] [place] [address] Pankaj Rosenberg MD [address] [address] 05/25/2024 12:45 PM INVESTIGATION CLERK Office Visit [facility] Physical Therapy [address] [address] Pankaj Rosenberg MD [address] [address] Maya Magaña, [place] [address] 05/30/2024 3:40 PM INVESTIGATION CLERK Office Visit [facility] Medical [facility] Multispecialty Care - [place] [address] [address] [place] [address] Pankaj Rosenberg MD [address] [address] 06/20/2024 3:40 PM INVESTIGATION CLERK [facility] - [place] [address] [address] [place] [address] Pankaj Rosenberg MD [address] [address] 06/21/2024 1:00 PM INVESTIGATION CLERK Office Visit [facility] Medical Group Orthopedic & Sports Medicine - [place] [address] [place] [address] Jose Ratliff MD [phone] [place] [address] 03/27/2025 1:00 PM INVESTIGATION CLERK Office Visit [facility] Medical [facility] Multispecialty Care - [facility] [address] [facility] [place] [address] Bob Oneal MD [address] [facility] [address] [place] [address] documented as of this encounter Visit Diagnoses Not on filedocumented in this encounter Additional Health Concerns Assessment Noted Time PHQ-9 Depression Total Score: 4 06/15/19 24 9:40 AM INVESTIGATION CLERK documented as of this encounter Care Teams Renovation Plant Supervisor Relationship Specialty Start Date End Date Pankaj Rosenberg MD [address] [address] PCP - General INTERNAL MEDICINE 06/15/21 documented as of this encounter
--- OUTSIDE RECORDS SUMMARY | 2024-05-13 11:18 | XMS_ITS | Encounter Summary ---
Author Organization [facility] Address [address] [place] [address] Care Team Providers Care Candy Attendant Name Role Phone Unavailable Primary Care Provider Unavailabl e Reason for Visit * Reason Onset Date Comments Letter for School/Work 08/27/2013 Encounter Details Date Type Department Care Team (Late st Contact Info) Description 08/27/2013 Telephone [facility] Trauma and General Surgery [address] [facility] [address] [address] Zahra Faye RMA Letter for School/Work Social History Tobacco Use Types Packs/Day Years [...] encounter Miscellaneous Notes * Telephone Encounter - Zahra Faye - 08/27/2013 10:12 AM CDT Pt's mother Miranda Parkinson called. She states that her son is currently in the hospital and thatshe needs a letter for her work to show that she has been here with him. She lives thousands of miles away. She states that the nurses at the hospital told her that she needed to contact our office. I asked her to hold and I would see who has seen her. There is no way for me to know if she has been at the hospital or not. I only work in the office, not the hospital. She agreed she was not sure why they told her to call here. I told her that I would see which of our docs or WALLPAPER CLEANER's have seen her and call them and get a letter typed up. That way she is not being sent all over place. Spoke with Thony Olivas NP. He said that the pt's mother has been in the room every time he has been to see the pt. He is fine with a letter being written stating that the pt's mother has been present. Miranda notified. She will come by the office and hand picker the letter. documented in this encounter Plan of Treatment Not on file documented as of this encounter Visit Diagnoses Not on filedocumented in this encounter
--- OUTSIDE RECORDS SUMMARY | 2024-05-13 11:18 | XMS_ITS | Encounter Summary ---
Author Organization [facility] Address [address] [place] [address]. [place], [place] [address] [place] [address] Care Team Providers Care Metal Roaster Name Role Phone Pankaj Rosenberg MD Primary Care Provider [phone] Reason for Visit * Reason Onset Date Comments Information 04/30/2024 Encounter Details Date Type Department Care Team (Late st Contact Info) Description 04/30/2024 Telephone [facility] Medical Group Multispecialty Care - [place] [address] [address] [place] [address] Pankaj Rosenberg MD [address] [place] [address] [address] [place] [address] Information Social History Tobacco Use [...] on file Legal Sex Male 2:58 PM COLLECTION SYSTEMS MODELER Gender Identity Male 07/13/2021 5:19 AM COLLECTION SYSTEMS MODELER Sexual Orientation Straight 07/13/2021 5: 19 AM COLLECTION SYSTEMS MODELER documented as of this encounter Progress Notes * Artur Cruz - 04/30/2024 3:31 PM CST Pt called today and canceled his appt had a sick child at home, he is wanting an MRI for his left shoulder. I changed appt to a Virtual Appt for today. ECTION SYSTEMS MODELER documented in this encounter Plan of Treatment Upcoming Encounters Date Type Department Care Team (Late st Contact Info) Description 05/15/2024 3:30 PM COLLECTION SYSTEMS MODELER Appointment [facility] [place] [address] Pankaj Rosenberg MD [address] [place] [address] 05/25/2024 12:45 PM COLLECTION SYSTEMS MODELER Office Visit [facility] Physical Therapy [address] [place] [address] Pankaj Rosenberg MD [address] [place] [address] Maya Magaña, [place] [address] 05/30/2024 3:40 PM COLLECTION SYSTEMS MODELER [facility] [place] [address] [address] [place] [address] Pankaj Rosenberg MD [facility] [address] [address] 06/20/2024 3:40 PM COLLECTION SYSTEMS MODELER [facility] [address] [place] [address] Pankaj Rosenberg MD [address] [place] [address] 06/21/2024 1:00 PM COLLECTION SYSTEMS MODELER Office Visit [facility] Medical Group Orthopedic & Sports Medicine - [address] [place] [address] Jose Ratliff MD [address] [address] [place] [address] 03/27/2025 1:00 PM COLLECTION SYSTEMS MODELER Office Visit [facility] Medical Group Multispecialty Care - [facility] [address] [place] [address] Bob Oneal MD [address] [facility] [address] [place] [address] documented as of this encounter Visit Diagnoses Not on filedocumented in this encounter Additional Health Concerns Assessment Noted Time PHQ-9 Depression Total Score: 5 02/15/20 24 8:25 AM CDT documented as of this encounter Care Teams Metal Roaster Relationship Specialty Start Date End Date Pankaj Rosenberg MD [address] [facility] [address] [place] [address] PCP - General INTERNAL MEDICINE 06/15/21 documented as of this encounter
--- OUTSIDE RECORDS SUMMARY | 2024-05-13 11:18 | XMS_ITS | Encounter Summary ---
Author Organization [facility] Address [address] [place] [address]. [place] [address] [place] [address] Care Team Providers Care Management Scientist Name Role Phone Pankaj Rosenberg MD Primary Care Provider [phone] Reason for Visit * Auth/Cert (Routine) Specialty [...] DIAGNOSTIC WITH/WITHOUT SPECIMEN BRUSH/WASH Mario Oneal MD [address] [place] [address] Phone: tel: fax: Referral ID Status Reason Start Date Expiration Date Visits Re quested Visits Authorized [id number] 1 1 Encounter Details Date Type Department Care Team (Latest Contact Info) Description 09/02/2023 11:00 AM CDT - 09/02/2023 1:00 PM T Hospital Encounter [facility] [address] [place] [address] Mario Oneal MD [address] [place] [address] [phone] Discharge Disposition: Home or Self Care (Routine [...] on file Legal Sex Male 2:58 PM HOLE DIGGER OPERATOR Gender Identity Male 07/13/2021 5:19 AM HOLE DIGGER OPERATOR Sexual Orientation Straight 07/13/2021 5: 19 AM HOLE DIGGER OPERATOR documented as of this encounter Last [...] Everywhere. * Upper GI Endoscopy Discharge Instructions (Polish) * Colonoscopy Discharge Instructions (Polish) * Moderate Sedation in Adults Discharge Instructions (Polish) documented in this encounter Medications at Time of Discharge Blood Glucose Monitoring Suppl (PolyPid VERIO REFLECT) w/Device Kit 1 Units by Does not apply route 2 (two) times daily. 09/16/2021 CPAP DEVICE, DME,Indications:KARRIE (obstructive sleep apnea) Use daily when sleeping or taking a nap. 1 Device 08/21/2021 Lancets (ViewpostUCH DELICA PLUS [id number]) Misc USE 1 LANCET TO PRICK FINGER TWICE DAILY BEFORE TESTING 09/16/2021 mupirocin (BACTROBAN) 2 % ointmentIndications: Dermatitis Apply topically 2 (two) times daily. Use on the scalp on the rash. 22 g 3 11/24/2022 TRUEplus Lancets 33G Misc 09/16/2021 amLODIPine (NORVASC) 10 MG tabletIndications:Es sential hypertension, benign,Hypertension associated with type 2 diabetes mellitus ([facility] HHS/HCC) Take 1 tablet (10 mg total) by mouth daily. 90 tablet 1 03/09/2023 4 azelastine (ASTELIN) 0.1 % nasal sprayIndications:All ergic rhinitis, unspecified seasonality, unspecified trigger USE 1 SPRAY IN EACH NOSTRIL TWICE DAILY DIRECTED 90 mL 1 11/24/2022 4 buPROPion SR (WELLBUTRIN SR) 150 MG 12 hr tabletIndications:Re current major depressive disorder, remission status unspecified ([facility]) Take 1 tablet (150 mg total) by [...] hyperglycemia, without long-term current use of insulin ([facility] HHS/HCC) Take 1 tablet (5 mg total) by mouth daily. 90 tablet 06/21/2023 4 lisinopril (PRINIVIL) 10 MG tabletIndications:Es sential hypertension, benign,Hypertension associated with type 2 diabetes mellitus ([facility] HHS/HCC) Take 1 tablet (10 mg total) [...] lipidemia due to type 2 diabetes mellitus ([facility] H[facility]) Take 1 tablet (40 mg total) by [...] spinous process of cervical vertebra ([facility]) Essential hypertension, benign Deviated nasal septum Allergic rhinitis Arthrogryposis Type 2 diabetes mellitus with hyperglycemia, without long-term current use of insulin ([facility]) Gastroesophageal reflux disease without esophagitis Nausea and vomiting, unspecified vomiting type Change in bowel function Epigastric burning sensation KARRIE (obstructive sleep apnea) History of gastroschisis Hypertrophy of nasal turbinates S/P exploratory laparotomy S/P small bowel resection Generalized abdominal pain Rectal bleeding Epigastric pain Constipation, unspecified constipation type SBO (small bowel obstruction) ([facility]) Polyp of gallbladder Past Medical History: Diagnosis Date Allergy Arthrogryposis Diabetes mellitus ([facility]) Hyperlipidemia Hypertension Obstructive sleep apnea Personal history of (corrected) gastroschisis Past Surgical History: Procedure Laterality Date APPENDECTOMY as a baby along with gastroschisis COLONOSCOPY N/A 08/26/2021 COLONOSCOPY WITH POLYPECTOMY performed by Mario Oneal MD at [facility] OR SEPTOPLASTY SMALL INTESTINE SURGERY Family History [...] Resource Strain: Low Risk (07/27/2022) Received from [facility] [employer] [facility] [email or web address] Overall Financial Resource Strain (CARDIA) Difficulty of Paying Living Expenses: Not hard at all Food Insecurity: No Food Insecurity (07/27/2022) Received from [facility] [employer] [facility] [email or web address] Hunger Vital Sign Worried About Running Out of Food in the Last Year: Never true Ran Out of Food in the Last Year: Never true Transportation Needs: No Transportation Needs (07/27/2022) Received from [facility] - Transportation Lack of Transportation (Medical): No Lack of Transportation (Non-Medical): No Physical Activity: Not on file Stress: No Stress Concern Present (07/27/2022) Received from [email or web address] [facility] of Occupational Health - Occupational Stress Questionnaire Feeling of Stress : Not at all Social Connections: Not on file Intimate Partner Violence: Not on file Housing Stability: High Risk (07/27/2022) Received from [email or web address] Housing Stability Vital Sign Unable to Pay [...] Mounika Sam CST Anesthesia: Monitor Anesthesia Care INFORMATION TECHNOLOGY DATA ANALYST: Lisa Holt CRNA Pre-Op Diagnosis: Abdominal pain, [...] st Contact Info) Description 05/15/2024 3:30 PM HOLE DIGGER OPERATOR Appointment [facility] [place] [address] Pankaj Rosenberg MD [address] [place] [address] 05/25/2024 12:45 PM HOLE DIGGER OPERATOR Office Visit [facility] Physical Therapy [address] [place] [address] Pankaj Rosenberg MD [address] [place] [address] Maya Magaña, [place] [address] 05/30/2024 3:40 PM HOLE DIGGER OPERATOR Office Visit [facility] [place] [address] [address] [place] [address] Pankaj Rosenberg MD [address] [place] [address] 06/20/2024 3:40 PM HOLE DIGGER OPERATOR Telemedicine [place] [address] [address] [place] [address] Pankaj Rosenberg MD [address] [facility] [address] [place] [address] 06/21/2024 1:00 PM HOLE DIGGER OPERATOR Office Visit [facility] Medical [facility] Medicine - [place] [address] [place] [address] Jose Ratliff MD [address] [place] [address] [place] [address] 03/27/2025 1:00 PM HOLE DIGGER OPERATOR Office Visit [facility] Multispecialty Care - [facility] [address] [facility] [place] [address] Mario Oneal MD [address] [facility] [address] [place] [address] documented as of this encounter Procedures Procedure [...] - 110 mg/dL 09/05/2023 7:48 AM CDT [facility] 09/02/2023 11:2 0 AM CDT us Mario Oneal MD POCT ORDERABLES - DEVICE Final R esult Performing Organization Address [facility]/State/ZIP Co de Phone Number [facility] [address] [place] [address], * Pathology (09/02/2023 12:00 AM CDT) PATHOLOGY [facility] ? Department of Laboratory Medicine ?[address] [facility] ?[place] [address] ? , [facility] [id number] ? Pathology Report ? Surgical Pathology Report Name: SHERI BARLOW R ? Specimen #: [id number] Age: 12 1995 (Age: 28) ? Location: [facility] Sex: M ?Procedure Date: 09/02/2023 [facility] #: [id number] ?Date Received: 09/05/2023 Date Reported: 09/08/2023 Provider: [...] Gross examination (when applicable) was performed at [facility], [address] [place] [address]. This case was interpreted and signed out at [facility], [address] [place] [address]. FINAL DIAGNOSIS: A. Duodenum, biopsy: ? -Small [...] developed and its performance characteristics determined by [facility]. It has not been cleared or approved by the U.S. Food and Drug Administration. However, the use of Analyte Specific Reagents does not require FDA approval. Electronically Signed Out ? LORE ARMENTA MD [facility] TISSUE STOMACH STRUCTURE / Unknown 09/02/2023 11:56 AM CDT Tissue specimen (specimen) ILEAL STRUCTURE / Unknown 09/02/2023 12:09 PM CDT us Mario Oneal MD PATHOLOGY/CYTOLOGY ORDERABLES Fi nal Result [facility] [address] [place] [address], [id number] documented in this encounter Visit Diagnoses Diagnosis Nausea and vomiting, unspecified vomiting type Change in bowel function Other symptoms involving digestive system Generalized abdominal pain Abdominal pain, generalized Rectal bleeding Hemorrhage of rectum and anus Epigastric pain Abdominal pain, epigastric Constipation, unspecified constipation type SBO (small bowel obstruction) ([facility] [place]) Unspecified intestinal obstruction Polyp of gallbladder Cholesterolosis of gallbladder documented in this encounter Admitting Diagnoses Diagnosis Nausea and vomiting, unspecified vomiting type Change in bowel function Other symptoms involving digestive system Generalized abdominal pain Abdominal pain, generalized Rectal bleeding Hemorrhage of rectum and anus Epigastric pain Abdominal pain, epigastric Constipation, unspecified constipation type SBO (small bowel obstruction) ([facility] HHS/HCC) Unspecified intestinal obstruction Polyp of gallbladder [...] Total Score: 4 06/15/19 24 9:40 AM HOLE DIGGER OPERATOR documented as of this encounter Care Teams Management Scientist Relationship Specialty Start Date End Date Pankaj Rosenberg MD [address] [facility] [address] [place] [address] PCP - General INTERNAL MEDICINE 06/15/21 documented as of this encounter
--- OUTSIDE RECORDS SUMMARY | 2024-05-13 11:18 | XMS_ITS | Encounter Summary ---
Author Organization [facility] Address [address] [place] [address]. [place], [place] [address] [place] [address] Care Team Providers Care Direct Care Worker Name Role Phone Pankaj Rosenberg MD Primary Care Provider [phone] Reason for Visit * Reason Comments Follow Up F/u (procedures) Encounter Details Date Type Department Care Team (Latest Contact Info) Description 10/21/2023 1:00 PM CDT Office Visit [facility] [address] [address] Mario Oneal MD [address] [place] [address] Follow Up (F/u (procedures)) Social History Tobacco [...] on file Legal Sex Male 2:58 PM COMPUTER SYSTEM TECHNICIAN Gender Identity Male 07/13/2021 5:19 AM COMPUTER SYSTEM TECHNICIAN Sexual Orientation Straight 07/13/2021 5: 19 AM COMPUTER SYSTEM TECHNICIAN documented as of this encounter Last [...] mL, Rfl: 1 Blood Glucose Monitoring Suppl (BriteseedUCH VERIO REFLECT) w/Device Kit, 1 Units by [...] tablet, Rfl: 1 Lancets (ONETOUCH DELICA PLUS [id number]) [facility], USE 1 LANCET TO PRICK FINGER TWICE [...] 90 tablet, Rfl: 0 TRUEplus Lancets 33G [facility], , Disp: , Rfl: Allergies: Not on File Medical History: Past Medical History: Diagnosis Date Allergy Arthrogryposis Diabetes mellitus (CMS/HCC HHS/HCC) Hyperlipidemia Hypertension Obstructive sleep apnea Personal history of (corrected) gastroschisis Surgical History: Past Surgical History: Procedure Laterality Date APPENDECTOMY as a baby along with gastroschisis COLONOSCOPY N/A 08/26/2021 COLONOSCOPY WITH POLYPECTOMY performed by Mario Oneal MD at [facility] OR COLONOSCOPY N/A 09/02/2023 Colonoscopy with Biopsy performed by Mario Oneal MD at [facility] OR SEPTOPLASTY SMALL INTESTINE SURGERY PE: Filed [...] st Contact Info) Description 05/15/2024 3:30 PM COMPUTER SYSTEM TECHNICIAN Appointment [facility] [place] [address] Pankaj Rosenberg MD [address] [place] [address] 05/25/2024 12:45 PM COMPUTER SYSTEM TECHNICIAN Office Visit [facility] Physical Therapy [address] [place] [address] Pankaj Rosenberg MD [address] [place] [address] Maya Magaña, [place] [address] 05/30/2024 3:40 PM COMPUTER SYSTEM TECHNICIAN Office Visit [facility] Multispecialty Care - [place] [address] [address] [place] [address] [place] [address] [place] [address] 06/20/2024 3:40 PM COMPUTER SYSTEM TECHNICIAN [facility] - [place] [address] [address] [place] [address] Pankaj Rosenberg MD [address] [address] 06/21/2024 1:00 PM COMPUTER SYSTEM TECHNICIAN Office Visit [facility] Orthopedic & Sports Medicine - [place] [address] [place] [address] Jose Ratliff MD [address] [facility] [address] [place] [address] 03/27/2025 1:00 PM COMPUTER SYSTEM TECHNICIAN Office Visit [facility] Multispecialty [facility] [address] [facility] [address] [place] [address] Mario Oneal MD 3 [facility] [address] [place] [address] documented as of this encounter Visit Diagnoses Diagnosis Ileitis- Primary Other and unspecified noninfectious gastroenteritis and colitis documented in this encounter Additional Health Concerns Assessment Noted Time PHQ-9 Depression Total Score: 4 06/15/19 24 9:40 AM COMPUTER SYSTEM TECHNICIAN documented as of this encounter Care Teams Direct Care Worker Relationship Specialty Start Date End Date Pankaj Rosenberg MD [address] [place] [address] PCP - General INTERNAL MEDICINE 06/15/21 documented as of this encounter
--- OUTSIDE RECORDS SUMMARY | 2024-05-13 11:18 | XMS_ITS | Encounter Summary ---
Author Organization [facility] Address [address] [place] [address]. [place] [address] [place] [address] Care Team Providers Care Wool Brusher Name Role Phone Pankaj Rosenberg MD Primary Care Provider [phone] Reason for Visit * Reason Comments Lab [...] on file Legal Sex Male 2:58 PM CLIENT CONSULTANT Gender Identity Male 07/13/2021 5:19 AM CLIENT CONSULTANT Sexual Orientation Straight 07/13/2021 5: 19 AM CLIENT CONSULTANT documented as of this encounter Plan of Treatment Upcoming Encounters Date Type Department Care Team (Late st Contact Info) Description 05/15/2024 3:30 PM CLIENT CONSULTANT [facility]ointment [place] [address] Pankaj Rosenberg MD [address] [facility] [address] [place] [address] 05/25/2024 12:45 PM CLIENT CONSULTANT Office Visit [facility] Physical Therapy [address] [address] Pankaj Rosenberg MD [address] [address] Maya Magaña, [place] [address] 05/30/2024 3:40 PM CLIENT CONSULTANT [facility] [place] [address] [address] [place] [address] Pankaj Rosenberg MD [address] [address] 06/20/2024 3:40 PM CLIENT CONSULTANT [facility]medicine [facility] [place] [address] [address] [place] [address] Pankaj Rosenberg MD [address] [address] 06/21/2024 1:00 PM CLIENT CONSULTANT Office Visit [facility] Orthopedic & Sports Medicine - [place] [address] [place] [address] Jose Ratliff MD [address] [place] [address] 03/27/2025 1:00 PM CLIENT CONSULTANT Office Visit [facility] Multispecialty Care - [facility] [address] [facility] [place] [address] Bob Oneal MD 3 [facility] [address] [place] [address] documented as of this encounter Procedures Procedure Name Priority Date/Time Associated Diagnosis Comments OUTSIDE LAB (SCAN ORDER) 12/12/2023 OUTSIDE LAB (SCAN ORDER) 12/12/2023 OUTSIDE LAB (SCAN ORDER) 12/12/2023 OUTSIDE LAB (SCAN ORDER) 12/12/2023 OUTSIDE LAB (SCAN ORDER) 12/12/2023 OUTSIDE LAB (SCAN ORDER) 12/12/2023 OUTSIDE LAB (SCAN ORDER) 12/12/2023 documented in this encounter Results * OUTSIDE LAB (SCAN ORDER) (12/12/2023) 12/12/2023 [facility] Scanned SCANNING Final Resu lt * OUTSIDE LAB (SCAN ORDER) (12/12/2023) 12/12/2023 [facility] Scanned SCANNING Final Resu lt * OUTSIDE LAB (SCAN ORDER) (12/12/2023) 12/12/2023 [facility] Scanned SCANNING Final Resu lt * OUTSIDE LAB (SCAN ORDER) (12/12/2023) 12/12/2023 [facility] Scanned SCANNING Final Resu lt * OUTSIDE LAB (SCAN ORDER) (12/12/2023) 12/12/2023 [facility] Scanned SCANNING Final Resu lt * OUTSIDE LAB (SCAN ORDER) (12/12/2023) 12/12/2023 [facility] Scanned SCANNING Final Resu lt * OUTSIDE LAB (SCAN ORDER) (12/12/2023) 12/12/2023 [facility] Scanned SCANNING Final Resu lt documented in this encounter Visit Diagnoses Not on filedocumented in this encounter Additional Health Concerns Assessment Noted Time PHQ-9 Depression Total Score: 4 06/15/19 24 9:40 AM CLIENT CONSULTANT documented as of this encounter Care Teams Wool Brusher Relationship Specialty Start Date End Date Pankaj Rosenberg MD [address] [address] PCP - General INTERNAL MEDICINE 06/15/21 documented as of this encounter
--- OUTSIDE RECORDS SUMMARY | 2024-05-13 11:18 | XMS_ITS | Encounter Summary ---
Author Organization [facility] Address [address] [place] [address]. [place] [address] [place] [address] Care Team Providers Care Inspector Hot Forgings Name Role Phone Pankaj Rosenberg MD Primary Care Provider [phone] Reason for Visit * Auth/Cert (Routine) Specialty [...] WITH/WITHOUT SPECIMEN BRUSH/WASH Mario Oneal MD [address] [place] [address] Phone: tel: fax: Referral ID Status Reason Start Date Expiration Date Visits Re quested Visits Authorized [id number] 1 1 Encounter Details Date Type Department Care Team (Late st Contact Info) Description 09/02/2023 11:06 AM CDT - 09/02/2023 11:47 AM CDT Surgery [facility] [address] [place] [address] Mario Oneal MD [address] [place] [address] [phone] Upper Endoscopy with Biopsy Surgery Details Date/Time Status Location OR Service Patient Class Case Class Case Type Trauma Case? 09/02/2023 11:06 AM Posted [facility] OR Endo Gastroenterology Short Stay/Outpa tient Surgery [...] on file Legal Sex Male 2:58 PM NURSE RECEPTIONIST Gender Identity Male 07/13/2021 5:19 AM NURSE RECEPTIONIST Sexual Orientation Straight 07/13/2021 5 :19 AM NURSE RECEPTIONIST documented as of this encounter Last Filed [...] Everywhere. * Upper GI Endoscopy Discharge Instructions (Central African) * Colonoscopy Discharge Instructions (Central African) * Moderate Sedation in Adults Discharge Instructions (Central African) documented in this encounter Medications at Time of Discharge Blood Glucose Monitoring Suppl ([employer] VERIO REFLECT) w/Device Kit 1 Units by Does not apply route 2 (two) times daily. 09/16/2021 CPAP DEVICE, DME,Indications:KARRIE (obstructive sleep apnea) Use daily when sleeping or taking a nap. 1 Device 08/21/2021 Lancets (ONETOUCH DELICA PLUS [id number]) [facility] [place] 1 LANCET TO PRICK FINGER TWICE DAILY BEFORE TESTING 09/16/2021 mupirocin (BACTROBAN) 2 % ointmentIndications: Dermatitis Apply topically 2 (two) times daily. Use on the scalp on the rash. 22 g 3 11/24/2022 TRUEplus Lancets 33G Misc 09/16/2021 amLODIPine (NORVASC) 10 MG tabletIndications:Es sential hypertension, benign,Hypertension associated with type 2 diabetes mellitus ([facility] HHS/[facility]) Take 1 tablet (10 mg total) by mouth daily. 90 tablet 1 03/09/2023 4 azelastine (ASTELIN) 0.1 % nasal sprayIndications:All ergic rhinitis, unspecified seasonality, unspecified trigger USE 1 SPRAY IN EACH NOSTRIL TWICE DAILY DIRECTED 90 mL 1 11/24/2022 4 buPROPion SR (WELLBUTRIN SR) 150 MG 12 hr tabletIndications:Re current major depressive disorder, remission status unspecified ([facility]) Take 1 tablet (150 mg [...] long-term current use of insulin ([facility] HHS/HCC) Take 1 tablet (5 [...] List Diagnosis Mixed hyperlipidemia Traumatic brain injury ([facility]) Nonalcoholic steatohepatitis Gallbladder polyp Fracture of spinous process of cervical vertebra ([facility]) Essential hypertension, benign Deviated nasal septum Allergic rhinitis Arthrogryposis Type 2 diabetes mellitus with hyperglycemia, without long-term current use of insulin ([facility]) Gastroesophageal reflux disease without esophagitis Nausea and vomiting, unspecified vomiting type Change in bowel function Epigastric burning sensation KARRIE (obstructive sleep apnea) History of gastroschisis Hypertrophy of nasal turbinates S/P exploratory laparotomy S/P small bowel resection Generalized abdominal pain Rectal bleeding Epigastric pain Constipation, unspecified constipation type SBO (small bowel obstruction) ([facility]) Polyp of gallbladder Past Medical History: Diagnosis Date Allergy Arthrogryposis Diabetes mellitus ([facility]) Hyperlipidemia Hypertension Obstructive sleep apnea Personal history of (corrected) gastroschisis Past Surgical History: Procedure Laterality Date APPENDECTOMY as a baby along with gastroschisis COLONOSCOPY N/A 08/26/2021 COLONOSCOPY WITH POLYPECTOMY performed by Mario Oneal MD at [facility] OR SEPTOPLASTY SMALL INTESTINE SURGERY Family History [...] Resource Strain: Low Risk (07/27/2022) Received from [employer] Overall Financial Resource Strain (CARDIA) Difficulty of Paying Living Expenses: Not hard at all Food Insecurity: No Food Insecurity (07/27/2022) Received from [facility] [employer] Hunger Vital Sign Worried About Running Out of Food in the Last Year: Never true Ran Out of Food in the Last Year: Never true Transportation Needs: No Transportation Needs (07/27/2022) Received from [facility] [employer] PRAPARE - Transportation Lack of Transportation (Medical): No Lack of Transportation (Non-Medical): No Physical Activity: Not on file Stress: No Stress Concern Present (07/27/2022) Received from [facility] [employer] [facility] of Occupational Health - Occupational Stress Questionnaire Feeling of Stress : Not at all Social Connections: Not on file Intimate Partner Violence: Not on file Housing Stability: High Risk (07/27/2022) Received from [facility] [employer] Housing Stability Vital Sign Unable to Pay [...] Mounika Sam CST Anesthesia: Monitor Anesthesia Care MARKET ASSET PROTECTION MANAGER: Lisa Holt CRNA Pre-Op Diagnosis: Abdominal pain, [...] st Contact Info) Description 05/15/2024 3:30 PM NURSE [place] [address] Pankaj Rosenberg MD [address] [place] [address] 05/25/2024 12:45 PM NURSE RECEPTIONIST Office Visit [facility] Physical Therapy [address] [place] [address] Pankaj Rosenberg MD [address] [place] [address] Maya Magaña, [place] [address] 05/30/2024 3:40 PM NURSE RECEPTIONIST Office Visit [facility] Medical Group Multispecialty Care - [place] [address] [address] [place] [address] Pankaj Rosenberg MD [address] [facility] [address] [place] [address] 06/20/2024 3:40 PM NURSE RECEPTIONIST Telemedicine [facility]pecialty Care - [place] [address] [facility] [address] [place] [address] Pankaj Rosenberg MD [address] [facility] [address] [place] [address] 06/21/2024 1:00 PM NURSE RECEPTIONIST Office Visit [facility] Orthopedic & Sports Medicine - [place] [address] [place] [address] Jose Ratliff MD [address] [facility] [address] [place] [address] 03/27/2025 1:00 PM NURSE RECEPTIONIST [facility] [address] [facility] [place] [address] Mario Oneal MD 3 [facility] [address] [place] [address] documented as of this encounter Procedures Procedure [...] - 110 mg/dL 09/05/2023 7:48 AM CDT [facility] 09/02/2023 11:2 0 AM CDT us Mario Oneal MD POCT ORDERABLES - DEVICE Final R esult [facility] [address] [place] [address], * Pathology (09/02/2023 12:00 AM CDT) PATHOLOGY [facility] ? Department of Laboratory Medicine ?[address] [facility] ?[place] [address] ? , extension [phone] ? Pathology Report ? Surgical Pathology Report Name: SHERI BARLOW ? Specimen #: [id number] Age: 12 1995 (Age: 28) ? Location: [facility] Sex: M ?Procedure Date: 09/02/2023 Hospital #: [id number] ?Date Received: 09/05/2023 Date Reported: 09/08/2023 Provider: [...] Gross examination (when applicable) was performed at [facility], [address] [place] [address]. This case was interpreted and signed out at [facility], [address] [place] [address]. FINAL DIAGNOSIS: A. Duodenum, biopsy: ? -Small [...] developed and its performance characteristics determined by [facility]. It has not been cleared or approved by the U.S. Food and Drug Administration. However, the use of Analyte Specific Reagents does not require FDA approval. Electronically Signed Out ? LORE ARMENTA MD [facility] TISSUE STOMACH STRUCTURE / Unknown 09/02/2023 11:56 AM CDT Tissue specimen (specimen) ILEAL STRUCTURE / Unknown 09/02/2023 12:09 PM CDT us Mario Oneal MD PATHOLOGY/CYTOLOGY ORDERABLES Fi nal Result [facility] [address] [place] [address], [place] [phone] documented in this encounter Visit Diagnoses Diagnosis Nausea and vomiting, unspecified vomiting type Change in bowel function Other symptoms involving digestive system Generalized abdominal pain Abdominal pain, generalized Rectal bleeding Hemorrhage of rectum and anus Epigastric pain Abdominal pain, epigastric Constipation, unspecified constipation type SBO (small bowel obstruction) ([facility]) Unspecified intestinal obstruction Polyp of gallbladder Cholesterolosis of gallbladder Generalized abdominal pain Abdominal pain, generalized Rectal bleeding Hemorrhage of rectum and anus Epigastric pain Abdominal pain, epigastric Constipation, unspecified constipation type SBO (small bowel obstruction) ([facility]) Unspecified intestinal obstruction Polyp of [...] unspecified constipation type SBO (small bowel obstruction) ([facility]) Unspecified intestinal obstruction Polyp of [...] Total Score: 4 06/15/19 24 9:40 AM NURSE RECEPTIONIST documented as of this encounter Care Teams Inspector Hot Forgings Relationship Specialty Start Date End Date Pankaj Rosenberg MD [address] [address] PCP - General INTERNAL MEDICINE 06/15/21 documented as of this encounter
--- OUTSIDE RECORDS SUMMARY | 2024-05-13 11:19 | XMS_ITS | Encounter Summary ---
Author Organization [facility] Address [address] [place] [address]. [place], [place] [address] [place] [address] Care Team Providers Care Manager Of Quality Name Role Phone Pankaj Rosenberg MD Primary Care Provider [phone] Encounter Details Date Type Department Care Team (Latest Contact Info) Description 06/15/2023 - 06/15/2023 11:59 PM BRUSH FINISHER Hospital Encounter [facility] [address] [place] [address] Pankaj Rosenberg MD [address]8 [facility] [address] [place] [address] Discharge Disposition: Home or Self [...] on file Legal Sex Male 2:58 PM BRUSH FINISHER Gender Identity Male 07/13/2021 5:19 AM BRUSH FINISHER Sexual Orientation Straight 07/13/2021 5: 19 AM BRUSH FINISHER documented as of this encounter Medications at Time of Discharge Blood Glucose Monitoring Suppl (ONETOUCH VERIO REFLECT) w/Device Kit 1 Units by Does not apply route 2 (two) times daily. 09/16/2021 CPAP DEVICE, DME,Indications:KARRIE (obstructive sleep apnea) Use daily when sleeping or taking a nap. 1 Device 08/21/2021 Lancets (ONETOUCH DELICA PLUS [id number]) [facility] USE 1 LANCET TO PRICK FINGER TWICE [...] current major depressive disorder, remission status unspecified ([facility]) Take 1 tablet (150 mg total) [...] benign,Hypertension associated with type 2 diabetes mellitus ([facility] HHS/HCC) Take 1 tablet (10 mg total) [...] lipidemia due to type 2 diabetes mellitus ([facility] HHS/HCC) Take 1 tablet (40 mg total) by mouth nightly at bedtime. 90 tablet 1 03/09/2023 4 SITagliptin (JANUVIA) 25 mg TabIndications:Type 2 diabetes mellitus with hyperglycemia, without long-term current use of insulin ([facility] HHS/HCC) Take 1 tablet (25 mg total) by mouth daily. 90 tablet 1 03/09/2023 4 documented as of this encounter Plan of Treatment Upcoming Encounters Date Type Department Care Team (Late st Contact Info) Description 05/15/2024 3:30 PM BRUSH FINISHER Appointment [facility] [place] [address] Pankaj Rosenberg MD [address] [place] [address] 05/25/2024 12:45 PM BRUSH FINISHER Office Visit [facility] Physical Therapy [address] [place] [address] Pankaj Rosenberg MD [address] [place] [address] Maya Magaña, [place] [address] 05/30/2024 3:40 PM BRUSH FINISHER Office Visit [facility] Multispecialty [facility] - [place] [address] [address] [place] [address] Pankaj Rosenberg MD [address] [address] 06/20/2024 3:40 PM BRUSH FINISHER [facility] [place] [address] [address] [place] [address] Pankaj Rosenberg MD [address] [address] 06/21/2024 1:00 PM BRUSH FINISHER Office Visit [facility] Orthopedic & Sports Medicine - [place] [address] [place] [address] Jose Ratliff MD [id number] [place] [address] 03/27/2025 1:00 PM BRUSH FINISHER Office Visit [facility] Multispecialty Care - [facility] 3 [facility] [place] [address] Bob Oneal MD 3 [facility] [address] [place] [address] documented as of this encounter Visit Diagnoses Not on filedocumented in this encounter Additional Health Concerns Assessment Noted Time PHQ-9 Depression Total Score: 4 06/15/19 24 9:40 AM BRUSH FINISHER documented as of this encounter Care Teams Manager Of Quality Relationship Specialty Start Date End Date Pankaj Rosenberg MD [facility] [address] PCP - General INTERNAL MEDICINE 06/15/21 documented as of this encounter
--- OUTSIDE RECORDS SUMMARY | 2024-05-13 11:19 | XMS_ITS | Encounter Summary ---
Author Organization [facility] Address [address] [place] [address]. [place], [place] [address] [place] [address] Care Team Providers Care Special Agent Fbi Name Role Phone Pankaj Rosenberg MD Primary Care Provider [phone] Reason for Referral * Consultation (Urgent) - Authorized Specialty Diagnoses / Procedures Referred By Contac t Referred To Contact GASTROENTEROLOGY Diagnoses Abdominal pain, unspecified abdominal location Pankaj Rosenberg MD [address] [place] [address] Phone: tel: fax: [facility] Medical [facility] G[facility] - [address] [address] Phone: tel: fax: Referral ID Status Reason Start Date Expiration Date Visits Requested Visits Authorized [id number] Authorized Specialty Services 07/21/2023 07/20/2024 99 99 Reason for Visit * Reason Onset Date Comments Referral Request 07/21/2023 Encounter Details Date Type Department Care Team (Late st Contact Info) Description 07/21/2023 Telephone [facility] Group Multispecialty Care - [place] [address] [address] [place] [address] Pankaj Rosenberg MD [facility] [address] [address] Referral Request Social History [...] on file Legal Sex Male 2:58 PM AGILE TEST LEAD Gender Identity Male 07/13/2021 5:19 AM AGILE TEST LEAD Sexual Orientation Straight 07/13/2021 5: 19 AM AGILE TEST LEAD documented as of this encounter Progress Notes * Pankaj Rosenberg MD - 07/27/2023 12:44 PM CDTAddended by: PANKAJ ROSENBERG on: 07/27/2023 12:44 PM Modules accepted: Orders documented in this encounter Plan of Treatment Upcoming Encounters Date Type Department Care Team (Late st Contact Info) Description 05/15/2024 3:30 PM AGILE TEST LEAD Appointment [facility] [place] [address] Pankaj Rosenberg MD [address] [place] [address] 05/25/2024 12:45 PM AGILE TEST LEAD Office Visit [facility] Physical Therapy [address] [place] [address] Pankaj Rosenberg MD [facility] [address] [address] Maya Magaña, [place] [address] 05/30/2024 3:40 PM AGILE TEST LEAD Office Visit [facility] Medical Group Multispecialty Care - [place] [address] [address] [place] [address] Pankaj Rosenberg MD [address] [address] 06/20/2024 3:40 PM AGILE TEST LEAD Telemedicine [facility] Multispecialty [facility] [facility] - [place] [address] [address] [place] [address] Pankaj Rosenberg MD [facility] [address] [address] 06/21/2024 1:00 PM AGILE TEST LEAD Office Visit [facility] Orthopedic & Sports Medicine - [place] [address] [place] [address] Jose Ratliff MD [address] [facility] [address] [place] [address] 03/27/2025 1:00 PM AGILE TEST LEAD Office Visit [facility] Multispecialty [place] [facility] - [facility] [address] [facility], [address] [place] [address] Bob Oneal MD 3 [facility] [address] [place] [address] Scheduled Referrals Name Type Priority Associated Diagnoses Orde r Schedule Ambulatory referral to Gastroenterology (OTHER) Referral Routine Abdominal pain, unspecified abdominal location Ordered: 07/27/2023 documented as of this encounter Visit Diagnoses Diagnosis Abdominal pain, unspecified abdominal location- Primary documented in this encounter Additional Health Concerns Assessment Noted Time PHQ-9 Depression Total Score: 4 06/15/19 24 9:40 AM AGILE TEST LEAD documented as of this encounter Care Teams Special Agent Fbi Relationship Specialty Start Date End Date Pankaj Rosenberg MD [address] [place] [address] PCP - General INTERNAL MEDICINE 06/15/21 documented as of this encounter
--- OUTSIDE RECORDS SUMMARY | 2024-05-13 11:19 | XMS_ITS | Encounter Summary ---
Author Organization [facility] Address [address] [place] [address]. [place], [place] [address] [place] [address] Care Team Providers Care Diesel Scoop Operator Name Role Phone Pankaj Rosenberg MD Primary Care Provider [phone] Reason for Visit * Reason Onset Date Comments Referral 08/02/2023 Encounter Details Date Type Department Care Team (Late st Contact Info) Description 08/02/2023 Telephone [facility] Medical Group Multispecialty Care - [place] [address] [address] [place] [address] Pankaj Rosenberg MD [address] [place] [address] [place], [place] [phone] Referral Social History Tobacco Use Types Packs/Day [...] on file Legal Sex Male 2:58 PM FIRMWARE ARCHITECT Gender Identity Male 07/13/2021 5:19 AM FIRMWARE ARCHITECT Sexual Orientation Straight 07/13/2021 5: 19 AM FIRMWARE ARCHITECT documented as of this encounter Progress Notes * Doc Ribera - 08/02/2023 12:51 PM CDT Patient called and requested that his referral to GI Specialist be faxed to Dr. Mauricio Cameron at [phone]. Referral successfully faxed on 08/02/23. documented in this encounter Plan of Treatment Upcoming Encounters Date Type Department Care Team (Late st Contact Info) Description 05/15/2024 3:30 PM FIRMWARE ARCHITECT Appointment [facility] [place] [address] Pankaj Rosenberg MD [address] [place] [address] 05/25/2024 12:45 PM FIRMWARE ARCHITECT Office Visit [facility] Physical Therapy [address] [place] [address] Pankaj Rosenberg MD [address] [place] [address] Maya Magaña, [place] [address] 05/30/2024 3:40 PM FIRMWARE ARCHITECT Office Visit [facility] Multispecialty Care - [address] [address] Pankaj Rosenberg MD [address] [place] [address] 06/20/2024 3:40 PM FIRMWARE ARCHITECT [facility] [place] [address] [place] [address] Pankaj Rosenberg MD [address] [place] [address] 06/21/2024 1:00 PM FIRMWARE ARCHITECT Office Visit [facility] Orthopedic & Sports Medicine - [place] [address] [place] [address] Jose Ratliff MD [address] [address] [place] [address] 03/27/2025 1:00 PM FIRMWARE ARCHITECT Office Visit [facility] Multispecialty Care - [facility] [address] [facility] [place] [address] Bob Oneal MD [facility] [address] [place] [address] documented as of this encounter Visit Diagnoses Not on filedocumented in this encounter Additional Health Concerns Assessment Noted Time PHQ-9 Depression Total Score: 4 06/15/19 24 9:40 AM FIRMWARE ARCHITECT documented as of this encounter Care Teams Diesel Scoop Operator Relationship Specialty Start Date End Date Pankaj Rosenberg MD [address] [address] PCP - General INTERNAL MEDICINE 06/15/21 documented as of this encounter
--- OUTSIDE RECORDS SUMMARY | 2024-05-13 11:19 | XMS_ITS | Encounter Summary ---
Author Organization [facility] Address [address] [place] [address]. [place], [place] [address] [place] [address] Care Team Providers Care Fishing Game Warden Name Role Phone aPnkaj Rosenberg MD Primary Care Provider [phone] Reason for Visit * Reason Onset Date Comments Pain 07/14/2023 Encounter Details Date Type Department Care Team (Late st Contact Info) Description 07/14/2023 Telephone [facility] Medical Group Multispecialty Care - [place] [address] [address] [place], [place] [address] Pankaj Rosenberg MD [address] [place] [address] 157 [place] [address] Pain Social History Tobacco Use [...] on file Legal Sex Male 2:58 PM AGENCY SALES DIRECTOR Gender Identity Male 07/13/2021 5:19 AM AGENCY SALES DIRECTOR Sexual Orientation Straight 07/13/2021 5: 19 AM AGENCY SALES DIRECTOR documented as of this encounter Progress Notes * Artur Cruz - 07/14/2023 9:35 AM CST Pt called today and is having a stomach flair up that's been going on for 3 weeks now, pt is in pain, pls advise and call pt. CY SALES DIRECTOR documented in this encounter Plan of Treatment Upcoming Encounters Date Type Department Care Team (Late st Contact Info) Description 05/15/2024 3:30 PM AGENCY SALES DIRECTOR Appointment [facility] [place] [address] Pankaj Rosenberg MD [address] [place] [address] 05/25/2024 12:45 PM AGENCY SALES DIRECTOR Office Visit [facility] Physical Therapy [address] [place] [address] Pankaj Rosenberg MD [address] [place] [address] Maya Magaña, [place] [address] 05/30/2024 3:40 PM AGENCY SALES DIRECTOR Office Visit [facility] Medical [facility] Multispecialty Care - [place] [address] [place] [address] Pankaj Rosenberg MD [facility] [address] 06/20/2024 3:40 PM AGENCY SALES DIRECTOR Telemedicine [facility] Multispecialty [facility] Emergency Department - [place] [address] [address] [place] [address] Pankaj Rosenberg MD [address] [place] [address] 06/21/2024 1:00 PM AGENCY SALES DIRECTOR Office Visit [facility] Medical Group Orthopedic & Sports Medicine - [address] [place] [address] Jose Ratliff MD [address] [address] [place] [address] 03/27/2025 1:00 PM AGENCY SALES DIRECTOR Office Visit [facility] Medical Group Multispecialty Care - [facility] [address] [place] [address] Bob Oneal MD [address] [facility] [address] [place] [address] [place] [address] documented as of this encounter Visit Diagnoses Not on filedocumented in this encounter Additional Health Concerns Assessment Noted Time PHQ-9 Depression Total Score: 4 06/15/19 24 9:40 AM AGENCY SALES DIRECTOR documented as of this encounter Care Teams Fishing Game Warden Relationship Specialty Start Date End Date Pankaj Rosenberg MD [address] [facility] 157 [place] [address] PCP - General INTERNAL MEDICINE 06/15/21 documented as of this encounter
--- OUTSIDE RECORDS SUMMARY | 2024-05-13 11:19 | XMS_ITS | Encounter Summary ---
Author Organization [facility] Address [address] [place] [address]. [place], [place] [address] [place] [address] Care Team Providers Care Water Restoration Technician Name Role Phone Pankaj Rosenberg MD Primary Care Provider [phone] Reason for Visit * Reason Onset Date Comments Medication 06/20/2023 Encounter Details Date Type Department Care Team (Late st Contact Info) Description 06/20/2023 Telephone [facility] Medical Group Multispecialty Care - [place] [address] [address] [place] [address] Pankaj Rosenberg MD [address] [place] [address] 157 [place], [place] [id number] Medication Social History Tobacco Use Types Packs/Day [...] file Legal Sex Male 2:58 PM QUALITY ASSURANCE QA LAB TECHNICIAN Gender Identity Male 07/13/2021 5:19 AM QUALITY ASSURANCE QA LAB TECHNICIAN Sexual Orientation Straight 07/13/2021 5: 19 AM QUALITY ASSURANCE QA LAB TECHNICIAN documented as of this encounter Progress Notes * Viviana Romero MA - 06/21/2023 3:58 PM CST New prescription sent to pharmacy that is elligble for insurance. Pts copay is $40. Called pt to ask if he is on medicaid to help with co payment of medication. ITY ASSURANCE QA LAB TECHNICIAN * Viviana Romero MA - 06/21/2023 3:57 PM CST Pa denied via epic. ITY ASSURANCE QA LAB TECHNICIAN * Pankaj Rosenberg MD - 06/20/2023 3:12 PM CST ----- Message from Viviana Romero MA sent at 06/20/2023 2:57 PM QUALITY ASSURANCE QA LAB TECHNICIAN ----- Can you start a prior auth for this pts medication he called into the office today stating it was urgent for the januvia. Blood sugar medication ITY ASSURANCE QA LAB TECHNICIAN documented in this encounter Plan of Treatment Upcoming Encounters Date Type Department Care Team (Late st Contact Info) Description 05/15/2024 3:30 PM QUALITY ASSURANCE QA LAB TECHNICIAN Appointment [facility] [place] [address] Pankaj Rosenberg MD [address] [place] [address] 05/25/2024 12:45 PM QUALITY ASSURANCE QA LAB TECHNICIAN Office Visit [facility] Physical Therapy [address] [place] [address] Pankaj Rosenberg MD [facility] [address] Maya Magaña, [place] [address] 05/30/2024 3:40 PM QUALITY ASSURANCE QA LAB TECHNICIAN Office Visit [facility] Medical Group Multispecialty Care - [place] [address] [address] [place] [address] Pankaj Rosenberg MD [address] [address] 06/20/2024 3:40 PM QUALITY ASSURANCE QA LAB TECHNICIAN Telemedicine [facility] Multispecialty [facility] - [place] [address] [address] [place] [address] Pankaj Rosenberg MD [facility] [address] [address] 06/21/2024 1:00 PM QUALITY ASSURANCE QA LAB TECHNICIAN Office Visit [facility] Orthopedic & Sports Medicine - [place] [address] [place] [address] Jose Ratliff MD 670 [facility] [address] [place] [address] 03/27/2025 1:00 PM QUALITY ASSURANCE QA LAB TECHNICIAN Office Visit [facility] Multispecialty [facility] - [facility] 3 [facility] [address] [place] [address] Bob Oneal MD 3 [facility] [address] [place] [address] documented as of this encounter Visit Diagnoses Diagnosis Type 2 diabetes mellitus with hyperglycemia, without long-term current use of insulin ([facility]) documented in this encounter Additional Health Concerns Assessment Noted Time PHQ-9 Depression Total Score: 4 06/15/19 24 9:40 AM QUALITY ASSURANCE QA LAB TECHNICIAN documented as of this encounter Care Teams Water Restoration Technician Relationship Specialty Start Date End Date Pankaj Rosenberg MD [address] [place] [address] PCP - General INTERNAL MEDICINE 06/15/21 documented as of this encounter
--- OUTSIDE RECORDS SUMMARY | 2024-05-13 11:19 | XMS_ITS | Encounter Summary ---
Author Organization [facility] Address [address] [place] [address]. [place], [place] [address] [place] [address] Care Team Providers Care Education And Training Coordinator Name Role Phone Pankaj Rosenberg MD Primary Care Provider [phone] Encounter Details Date Type Department Care Team (Late st Contact Info) Description 07/21/2023 MyChart Message Enc [facility] Medical Group Multispecialty Care - [place] [address] [address] [place], [place] [address] Pankaj Rosenberg MD [address] [place] [address] 157 [place], [place] [id number] Results Social History Tobacco Use Types Packs/Day [...] on file Legal Sex Male 2:58 PM PROMOS EXECUTIVE PRODUCER Gender Identity Male 07/13/2021 5:19 AM PROMOS EXECUTIVE PRODUCER Sexual Orientation Straight 07/13/2021 5: 19 AM PROMOS EXECUTIVE PRODUCER documented as of this encounter Plan of Treatment Upcoming Encounters Date Type Department Care Team (Late st Contact Info) Description 05/15/2024 3:30 PM PROMOS EXECUTIVE PRODUCER Appointment [facility] [address] Pankaj Rosenberg MD [address] [address] 05/25/2024 12:45 PM PROMOS EXECUTIVE PRODUCER Office Visit [facility] Physical Therapy [address] [place] [address] Pankaj Rosenberg MD [address] [address] Maya Magaña, [place] [address] 05/30/2024 3:40 PM PROMOS EXECUTIVE PRODUCER Office Visit [facility] Medical [facility] Multispecialty Care - [place] [address] [address] [place] [address] Pankaj Rosenberg MD [facility] [address] [address] 06/20/2024 3:40 PM PROMOS EXECUTIVE PRODUCER Telemedicine [facility] Medical [facility] Multispecialty Care - [place] [address] [address] [place] [address] Pankaj Rosenberg MD [address] [address] 06/21/2024 1:00 PM PROMOS EXECUTIVE PRODUCER Office Visit [facility] Medical Group Orthopedic & Sports Medicine - [place] [address] [place] [address] Jose Ratliff MD [address] [address] [place] [address] 03/27/2025 1:00 PM PROMOS EXECUTIVE PRODUCER Office Visit [facility] Medical Group Multispecialty Care - [facility] 3 [facility], [address] [place] [address] Bob Oneal MD 3 [facility] [address] [place] [address] documented as of this encounter Visit Diagnoses Not on filedocumented in this encounter Additional Health Concerns Assessment Noted Time PHQ-9 Depression Total Score: 4 06/15/19 24 9:40 AM PROMOS EXECUTIVE PRODUCER documented as of this encounter Care Teams Education And Training Coordinator Relationship Specialty Start Date End Date Pankaj Rosenberg MD 118[address] [facility] [address] [place] [address] PCP - General INTERNAL MEDICINE 06/15/21 documented as of this encounter
--- OUTSIDE RECORDS SUMMARY | 2024-05-13 11:19 | XMS_ITS | Encounter Summary ---
Author Organization [facility] Address [address] [place] [address]. [place] [address] [place] [address] Care Team Providers Care Aspnet Developer Name Role Phone Pankaj Rosenberg MD Primary Care Provider [phone] Reason for Referral * Surgical (Routine) - [...] DIAGNOSTIC WITH/WITHOUT SPECIMEN BRUSH/WASH Bob Oneal MD [address] [place] [address] Phone: tel: fax: Referral ID Status Reason Start Date Expiration Date V isits Requested Visits Authorized [id number] New Request 08/09/2023 08/08/2024 1 1 Encounter Details Date Type Department Care Team (Late st Contact Info) Description 08/09/2023 Orders Only [facility] Medical Group Multispecialty Care - [address] [place] [address] Bob Oneal MD [address] [place] [address] [address] [place] [address] Social History Tobacco Use Types Packs/Day Years [...] on file Legal Sex Male 2:58 PM MACHINE FILLER Gender Identity Male 07/13/2021 5:19 AM MACHINE FILLER Sexual Orientation Straight 07/13/2021 5: 19 AM MACHINE FILLER documented as of this encounter Plan of Treatment Upcoming Encounters Date Type Department Care Team (Late st Contact Info) Description 05/15/2024 3:30 PM MACHINE FILLER Appointment [facility] [place] [address] Pankaj Rosenberg MD [address] [place] [address] 05/25/2024 12:45 PM MACHINE FILLER Office Visit [facility] Physical Therapy [address] [place] [address] Pankaj Rosenberg MD [facility] [address] [address] Maya Magaña, [place] [address] 05/30/2024 3:40 PM MACHINE FILLER Office Visit [facility] Medical Group Multispecialty Care - [place] [address] [address] [place] [address] Pankaj Rosenberg MD [facility] [address] [address] 06/20/2024 3:40 PM MACHINE FILLER Telemedicine [facility] Multispecialty Care - [place] [address] [place] [address] [address] [place] [address] Pankaj Rosenberg MD [address] [facility] [address] [place] [address] 06/21/2024 1:00 PM MACHINE FILLER Office Visit [facility] Orthopedic & Sports Medicine - [place] [address] [place] [address] Jose Ratliff MD [address] [place] [address] [place] [address] 03/27/2025 1:00 PM MACHINE FILLER Office Visit [facility] Multispecialty Care - [facility] 3 [facility] [address] [place] [address] Bob Oneal MD 3 [facility] [address] [place] [address] Scheduled Orders Name Type Priority Associated Diagnoses Orde r Schedule Case request operating room: EGD, COLONOSCOPY DIAGNOSTIC WITH/WITHOUT SPECIMEN BRUSH/WASH Case Request Routine Generalized abdominal pain Rectal bleeding Epigastric pain Constipation, unspecified constipation type SBO (small bowel obstruction) ([facility]) Polyp of gallbladder Nausea and vomiting, unspecified vomiting type Change in bowel function Ordered: 08/09/2023 documented as of this encounter Visit Diagnoses Diagnosis Generalized abdominal pain- Primary Abdominal pain, generalized Rectal bleeding Hemorrhage of rectum and anus Epigastric pain Abdominal pain, epigastric Constipation, unspecified constipation type SBO (small bowel obstruction) ([facility]) Unspecified intestinal obstruction Polyp of gallbladder Cholesterolosis of gallbladder Nausea and vomiting, unspecified vomiting type Change in bowel function Other symptoms involving digestive system documented in this encounter Additional Health Concerns Assessment Noted Time PHQ-9 Depression Total Score: 4 06/15/19 24 9:40 AM MACHINE FILLER documented as of this encounter Care Teams Aspnet Developer Relationship Specialty Start Date End Date Pankaj Rosenberg MD [address] [address] PCP - General INTERNAL MEDICINE 06/15/21 documented as of this encounter
--- OUTSIDE RECORDS SUMMARY | 2024-05-13 11:19 | XMS_ITS | Encounter Summary ---
Author Organization [facility] Address [address] [place] [address]. [place], [place] [address] [place] [address] Care Team Providers Care Wire Brush Operator Name Role Phone Pankaj Rosenberg MD Primary Care Provider [phone] Encounter Details Date Type Department Care Team [...] on file Legal Sex Male 2:58 PM ORTHOPEDIC NURSE Gender Identity Male 07/13/2021 5:19 AM ORTHOPEDIC NURSE Sexual Orientation Straight 07/13/2021 5: 19 AM ORTHOPEDIC NURSE documented as of this encounter Plan of Treatment Upcoming Encounters Date Type Department Care Team (Late st Contact Info) Description 05/15/2024 3:30 PM ORTHOPEDIC NURSE Appointment [facility] [place] [address] Pankaj Rosenberg MD [address] [address] 05/25/2024 12:45 PM ORTHOPEDIC NURSE Office Visit [facility] Physical Therapy [address] [address] Pankaj Rosenberg MD [address] [address] Maya Magaña, [place] [address] 05/30/2024 3:40 PM ORTHOPEDIC NURSE Office Visit [facility] Medical [facility] Multispecialty Care - [place] [address] [address] [place] [address] Pankaj Rosenberg MD [address] [address] 06/20/2024 3:40 PM ORTHOPEDIC NURSE [facility] - [place] [address] [address] [place] [address] Pankaj Rosenberg MD [address] [address] 06/21/2024 1:00 PM ORTHOPEDIC NURSE Office Visit [facility] Medical Group Orthopedic & Sports Medicine - [place] [address] [place] [address] Jose Ratliff MD [address] [place] [address] 03/27/2025 1:00 PM ORTHOPEDIC NURSE Office Visit [facility] Medical [facility] Multispecialty Care - [facility] 3 [facility] [address] [place] [address] Bob Oneal MD 3 [facility] [address] [place] [address] documented as of this encounter Visit Diagnoses Not on filedocumented in this encounter Additional Health Concerns Assessment Noted Time PHQ-9 Depression Total Score: 4 06/15/19 24 9:40 AM ORTHOPEDIC NURSE documented as of this encounter Care Teams Wire Brush Operator Relationship Specialty Start Date End Date Pankaj Rosenberg MD [address] [address] PCP - General INTERNAL MEDICINE 06/15/21 documented as of this encounter
--- OUTSIDE RECORDS SUMMARY | 2024-05-13 11:19 | XMS_ITS | Encounter Summary ---
Author Organization [facility] Address [address] [place] [address]. [place], [place] [address] [place] [address] Care Team Providers Care Detective Homicide Squad Name Role Phone Pankaj Rosenberg MD Primary Care Provider [phone] Reason for Visit * Reason Onset Date Comments Information 06/20/2023 Encounter Details Date Type Department Care Team (Late st Contact Info) Description 06/20/2023 Telephone [facility] Medical Group Multispecialty Care - [place] [address] [address] [place] [address] Pankaj Rosenberg MD [address] [place] [address] 157 [place] [address] Information Social History Tobacco Use [...] on file Legal Sex Male 2:58 PM COSMETIC SURGEON Gender Identity Male 07/13/2021 5:19 AM COSMETIC SURGEON Sexual Orientation Straight 07/13/2021 5: 19 AM COSMETIC SURGEON documented as of this encounter Progress Notes * Viviana Romero MA - 06/20/2023 1:16 PM CST Pt called saying his pror auth needs to be prioritized as he needs his medication. It was prescribed Tuesday informed pt we are off on weekends and prior auth is still in works he should be hearing within the next day or two. ETIC SURGEON documented in this encounter Plan of Treatment Upcoming Encounters Date Type Department Care Team (Late st Contact Info) Description 05/15/2024 3:30 PM COSMETIC SURGEON Appointment [facility] [address] [place] [address] [place] [address] 05/25/2024 12:45 PM COSMETIC SURGEON Office Visit [facility] Physical Therapy [address] [place] [address] Pankaj Rosenberg MD [address] [place] [address] Maya Magaña, [place] [address] 05/30/2024 3:40 PM COSMETIC SURGEON Office Visit [facility] - [address] [address] Pankaj Rosenberg MD [address] [place] [address] 06/20/2024 3:40 PM COSMETIC SURGEON Telemedicine [facility] - [place] [address] [place] [address] Pankaj Rosenberg MD [facility] [address] [address] 06/21/2024 1:00 PM COSMETIC SURGEON Office Visit [facility] Orthopedic & Sports Medicine - [place] [address] [place] [address] Jose Ratliff MD [address] [address] [place] [address] 03/27/2025 1:00 PM COSMETIC SURGEON Office Visit [facility] Multispecialty Care - [facility] 3 [facility] [address] [place] [address] Bob Oneal MD [facility] [address] [place] [address] documented as of this encounter Visit Diagnoses Not on filedocumented in this encounter Additional Health Concerns Assessment Noted Time PHQ-9 Depression Total Score: 4 06/15/19 24 9:40 AM COSMETIC SURGEON documented as of this encounter Care Teams Detective Homicide Squad Relationship Specialty Start Date End Date Pankaj Rosenberg MD [address] [address] PCP - General INTERNAL MEDICINE 06/15/21 documented as of this encounter
--- OUTSIDE RECORDS SUMMARY | 2024-05-13 11:19 | XMS_ITS | Encounter Summary ---
Author Organization [facility] Address [address] [place] [address]. [place], [place] [address] [place] [address] Care Team Providers Care Head Of Talent Management Name Role Phone Pankaj Rosenberg MD Primary Care Provider [phone] Reason for Visit * Reason Onset Date Comments Information 07/15/2023 Encounter Details Date Type Department Care Team (Late st Contact Info) Description 07/15/2023 Telephone [facility] Medical Group Multispecialty Care - [place] [address] [address] [place] [address] Pankaj Rosenberg MD [address] [place] [address] 157 [place] [address] Information Social History Tobacco Use [...] on file Legal Sex Male 2:58 PM MARINE DIESEL TECHNICIAN Gender Identity Male 07/13/2021 5:19 AM MARINE DIESEL TECHNICIAN Sexual Orientation Straight 07/13/2021 5: 19 AM MARINE DIESEL TECHNICIAN documented as of this encounter Progress Notes * Bertha Bonilla MA - 07/15/2023 12:43 PM CST Spoke with patient and he said he has an appointment with you Tuesday and doesn't want to go to the er NE DIESEL TECHNICIAN * Betrha Bonilla MA - 07/15/2023 12:42 PM CST ----- Message from Pankaj Rosenberg MD sent at 07/14/2023 5:29 PM MARINE DIESEL TECHNICIAN ----- ER aneta for abdominal pain please thanks. ----- Message ----- From: Artur Cruz Sent: 07/14/2023 9:39 AM MARINE DIESEL TECHNICIAN To: Pankaj Rosenberg MD NE DIESEL TECHNICIAN documented in this encounter Plan of Treatment Upcoming Encounters Date Type Department Care Team (Late st Contact Info) Description 05/15/2024 3:30 PM MARINE DIESEL TECH[place] [address] Pankaj Rosenberg MD [address] [place] [address] 05/25/2024 12:45 PM MARINE DIESEL TECHNICIAN Office Visit [facility] Physical Therapy [address] [place] [address] Pankaj Rosenberg MD [address] [place] [address] Maya Magaña, [place] [address] 05/30/2024 3:40 PM MARINE DIESEL TECHNICIAN Office Visit [facility] Medical Group Multispecialty Care - [place] [address] [address] [place] [address] Pankaj Rosenberg MD [address] [place] [address] 06/20/2024 3:40 PM MARINE DIESEL TECHNICIAN Telemedicine [facility] Multispecialty Care - [place] [address] [address] [place] [address] Pankaj Rosenberg MD [address] [address] 06/21/2024 1:00 PM MARINE DIESEL TECHNICIAN Office Visit [facility] Orthopedic & Sports Medicine - [place] [address] [place] [address] Jose Ratliff MD [address] [address] [place] [address] 03/27/2025 1:00 PM MARINE DIESEL TECHNICIAN [facility] 3 Health system., [address] [place] [address] Bob Oneal MD 3 [facility] [address] [place] [address] documented as of this encounter Visit Diagnoses Not on filedocumented in this encounter Additional Health Concerns Assessment Noted Time PHQ-9 Depression Total Score: 4 06/15/19 24 9:40 AM MARINE DIESEL TECHNICIAN documented as of this encounter Care Teams Head Of Talent Management Relationship Specialty Start Date End Date Pankaj Rosenberg MD 1188 [facility] 157 [place] [address] PCP - General INTERNAL MEDICINE 06/15/21 documented as of this encounter
--- OUTSIDE RECORDS SUMMARY | 2024-05-13 11:19 | XMS_ITS | Encounter Summary ---
Author Organization [facility] Address [address] [place] [address]. [place], [place] [address] [place] [address] Care Team Providers Care Powersaw Supervisor Name Role Phone Pankaj Rosenberg MD Primary Care Provider [phone] Reason for Visit * Reason Comments Stomach Pains Pt is here today wit h c/o stomach pain Encounter Details Date Type Department Care Team (Latest Contact Info) Description 07/18/2023 10:00 AM TRUCKLOAD CHECKER Office Visit [facility] Medical Group Multispecialty Care - [place] [address] [address] [place] [address] Pankaj Rosenberg MD [address] [place] [address] 157 [place], [place] [id number] Stomach Pains (Pt is here today with [...] on file Legal Sex Male 2:58 PM TRUCKLOAD CHECKER Gender Identity Male 07/13/2021 5:19 AM TRUCKLOAD CHECKER Sexual Orientation Straight 07/13/2021 5: 19 AM TRUCKLOAD CHECKER documented as of this encounter Last Filed Vital Signs Vital Sign Reading Time Taken Comments Blood Pressure 156/92 07/18/2023 10:50 AM TRUCKLOAD CHECKER Pulse 85 07/18/2023 9:59 AM TRUCKLOAD CHECKER Temperature 37.3 ??C (99.2 ??F) 07/18/2023 9:59 AM CS T Respiratory Rate 18 07/18/2023 9:59 AM TRUCKLOAD CHECKER Oxygen Saturation 99% 07/18/2023 9:59 AM TRUCKLOAD CHECKER Inhaled Oxygen Concentration - - Weight 114.7 kg (252 lb 12.8 oz) 07/18/2023 9:59 AM TRUCKLOAD CHECKER Height 180.3 cm (5' 11 ) 07/18/2023 9:59 AM TRUCKLOAD CHECKER Body Mass Index 35.26 07/18/2023 9:59 AM TRUCKLOAD CHECKER documented in this encounter Progress Notes * [...] of spinous process of cervical vertebra (HHS/HCC) ([facility]) Essential hypertension, benign Deviated nasal septum Allergic rhinitis Arthrogryposis Type 2 diabetes mellitus with hyperglycemia, without long-term current use of insulin (HHS/HCC) ([facility]/HCC) Gastroesophageal reflux disease without esophagitis Nausea and vomiting, unspecified vomiting type Change in bowel function Epigastric burning sensation KARRIE (obstructive sleep apnea) History of gastroschisis Hypertrophy of nasal turbinates S/P exploratory laparotomy S/P small bowel resection Past Medical History: Diagnosis Date Allergy Arthrogryposis Diabetes mellitus (HHS/HCC) ([facility]/HCC) 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 OR SEPTOPLASTY SMALL INTESTINE SURGERY Family [...] 90 mL 1 Blood Glucose Monitoring Suppl ([employer] Biolog[employer] CorporationUCH VERIO REFLECT) w/Device Kit 1 Units by [...] 90 tablet 1 Lancets (ONETOUCH DELICA PLUS [id number]) [facility] USE 1 [...] bedtime. 90 tablet 1 TRUEplus Lancets 33G [facility] Allergies: Review of patient's allergies indicates: Not [...] the day of the encounter. This includes whfc-cs-zdto and pzf-ocmn-vg-face time I provided on the day of [...] was at least in part performed using ReferralMD and there may be some inherent flaws in this diesel engine inspector due to the nature of this program. Pankaj Rosenberg MD Internal Medicine [facility], [facility]. KLOAD CHECKER documented in this encounter Plan of Treatment Upcoming Encounters Date Type Department Care Team (Late st Contact Info) Description 05/15/2024 3:30 PM TRUCKLOAD CHECKER Appointment [facility] [place] [address] Pankaj Rosenberg MD [address] [place] [address] 05/25/2024 12:45 PM TRUCKLOAD CHECKER Office Visit [facility] Physical Therapy [address] [place] [address] Pankaj Rosenberg MD [facility] [address] Maya Magaña, [place] [address] 05/30/2024 3:40 PM TRUCKLOAD CHECKER Office Visit [facility] Medical Group Multispecialty Care [place] [address] [address] [place] [address] Pankaj Rosenberg MD [facility] [address] [address] 06/20/2024 3:40 PM TRUCKLOAD CHECKER Telemedicine [facility] Multispecialty Care - [place] [address] [place] [address] [address] [place] [address] Pankaj Rosenberg MD [address] [facility] [address] [place] [address] 06/21/2024 1:00 PM TRUCKLOAD CHECKER Office Visit [facility] Orthopedic & Sports Medicine - [place] [address] [place] [address] Jose Ratliff MD [address] [place] [address] [place] [address] 03/27/2025 1:00 PM TRUCKLOAD CHECKER [facility] 3 [facility] [address] [place] [address] Bob Oneal MD [address] [facility] [address] [place] [address] Scheduled Orders Name Type Priority Associated Diagnoses [...] UREA BREATH TEST Routine 07/18/2023 11:29 AM TRUCKLOAD CHECKER Gastroesophageal reflux disease without esophagitis VENIPUNC ARM DRAW Routine 07/18/2023 10: 26 AM TRUCKLOAD CHECKER Diarrhea, unspecified type documented in this encounter Results * H. PYLORI UREA BREATH TEST (07/18/2023 11:29 AM TRUCKLOAD CHECKER) H. PYLORI UREA BREATH TEST NOT DETECTED NOT DETECTED [facility] Comment: Antimicrobials, proton pump inhibitors, and bismuth preparations are known to suppress H. pylori, and ingestion of these prior to H. pylori diagnostic testing may lead to false negative results. If clinically indicated, the test may be repeated on a new specimen obtained two weeks after discontinuing treatment. However, a positive result is still clinically valid. 07/18/2023 11:2 9 AM TRUCKLOAD CHECKER 07/18/2023 11:29 AM TRUCKLOAD CHECKER Narrative [facility] - 07/19/2023 2:52 PM TRUCKLOAD CHECKER FASTING:NO FASTING: NO Resulting Agency Comment Performing Organization Information: ?Site ID: [id number] ?Name: [facility] ?Address: [address] [place] [address] ?Director: Radha Scott MD Pankaj Rosenberg MD LABORATORY Final Result Performing Organization Address City/State/[facility] Co de Phone Number [facility] [facility] [address] [place], [place] [address] documented in this encounter Visit Diagnoses Diagnosis Gastroesophageal reflux disease without esophagitis- Primary Esophageal reflux Diarrhea, unspecified type Primary hypertension Unspecified essential hypertension documented in this encounter Additional Health Concerns Assessment Noted Time PHQ-9 Depression Total Score: 4 06/15/19 24 9:40 AM TRUCKLOAD CHECKER documented as of this encounter Care Teams Powersaw Supervisor Relationship Specialty Start Date End Date Pankaj Rosenberg MD [address] [facility] [address] [place] [address] PCP - General INTERNAL MEDICINE 06/15/21 documented as of this encounter
--- OUTSIDE RECORDS SUMMARY | 2024-05-13 11:19 | XMS_ITS | Encounter Summary ---
Author Organization [facility] Address [address] [place] [address]. [place], [place] [address] [place] [address] Care Team Providers Care Laborer Shaft Sinking Name Role Phone Pankaj Rosenberg MD Primary Care Provider [phone] Reason for Referral * Imaging (Routine) - Closed Specialty Diagnoses / Procedures Referred By Contac t Referred To Contact RADIOLOGY Diagnoses Epigastric pain Generalized abdominal pain Rectal bleeding Constipation, unspecified constipation type SBO (small bowel obstruction) ([facility]) Procedures CT ABD+PEL W CON Chaparro Rutledge, SHERRY 3 [facility] [address] [place] [address] Phone: tel: fax: Referral ID Status Reason Start Date Expiration Date Visits Re quested Visits Authorized [id number] Closed 08/09/2023 08/09/2024 1 1 Reason for Visit * Reason Comments Abdominal Pain Nausea Hx of bowel obstruct ion * Consultation (Urgent) - Authorized Specialty Diagnoses / Procedures Referred By Contac t Referred To Contact GASTROENTEROLOGY Diagnoses Abdominal pain, unspecified abdominal location Pankaj Rosenberg MD [address] [place] [address] Phone: tel: fax: [facility] Medical Group G[facility] - [address] [address] Phone: tel: fax: Referral ID Status Reason Start Date Expiration Date Visits Requested Visits Authorized [id number] Authorized Specialty Services 07/21/2023 07/20/2024 99 99 Encounter Details Date Type Department Care Team (Latest Contact Info) Description 08/09/2023 1:40 PM CDT Office Visit [facility] Medical Group Multispecialty Care - [facility] [address] [facility] [address] [place] [address] Pankaj Rosenberg MD [address] [facility] [address] [place] [address] Chaparro Rutledge NP 3 [facility] [address] [place] [address] Abdominal Pain; Nausea (Hx of bowel obstruction) [...] on file Legal Sex Male 2:58 PM ROCK WOOL APPLICATOR Gender Identity Male 07/13/2021 5:19 AM ROCK WOOL APPLICATOR Sexual Orientation Straight 07/13/2021 5: 19 AM ROCK WOOL APPLICATOR documented as of this encounter Last Filed [...] * Acid reflux and GERD in adults ([place]ian) documented in this encounter Progress Notes [...] of the small bowel in 09/2021 at [facility]. Surgeon did discuss further surgery to remove [...] POLYPECTOMY performed by Bob Oneal MD at [facility] OR SEPTOPLASTY SMALL INTESTINE SURGERY Family [...] 90 mL 1 Blood Glucose Monitoring Suppl ([employer] VERIO REFLECT) w/Device Kit 1 Units by [...] by mouth daily. 90 tablet 1 Lancets ([employer].UCH DELICA PLUS [id number]) [facility] bedtime. 90 tablet 1 TRUEplus Lancets 33G [facility] Review of patient's allergies indicates: No Known [...] Endoscopies: 08/26/21 EGD and Colonoscopy by Dr. nOeal Negative EGD. Colonoscopy with small sigmoid polyp [...] st Contact Info) Description 05/15/2024 3:30 PM ROCK WOOL APPLICATOR Appointment [facility] [place] [address] Pankaj Rosenberg MD [address] [place] [address] 05/25/2024 12:45 PM ROCK WOOL APPLICATOR Office Visit [facility] Physical Therapy [address] [place] [address] Pankaj Rosenberg MD [address] [place] [address] Maya Magaña, [place] [address] 05/30/2024 3:40 PM ROCK WOOL APPLICATOR Office Visit [facility] Multispecialty [facility] Emergency Department - [place] [address] [address] [place] [address] Pankaj Rosenberg MD [address] [place] [address] 06/20/2024 3:40 PM ROCK WOOL APPLICATOR [facility] Emergency Department - [address] [place] [address] [place] [address] [place] [address] 06/21/2024 1:00 PM ROCK WOOL APPLICATOR Office Visit [facility] Orthopedic & Sports Medicine - [place] [address] [place] [address] Jose Ratliff MD 670 [facility] [phone] [place] [address] 03/27/2025 1:00 PM ROCK WOOL APPLICATOR [facility] - [facility] [address] [facility] [address] [place] [address] Bob Oneal MD 3 [facility] [address] [place] [address] documented as of this encounter Results * [...] MD, 08/17/2023 5:51 AM us Chaparro Rutledge HOME DEMONSTRATOR CT Final Resul t documented in this encounter Visit Diagnoses Diagnosis Epigastric pain- Primary Abdominal pain, epigastric Generalized abdominal pain Abdominal pain, generalized Rectal bleeding Hemorrhage of rectum and anus Constipation, unspecified constipation type SBO (small bowel obstruction) ([facility]) Unspecified intestinal obstruction Epigastric pain Abdominal pain, epigastric Generalized abdominal pain Abdominal pain, generalized Rectal bleeding Hemorrhage of rectum and anus Constipation, unspecified constipation type SBO (small bowel obstruction) ([facility] HHS/[facility]) Unspecified intestinal obstruction documented in this encounter Additional Health Concerns Assessment Noted Time PHQ-9 Depression Total Score: 4 06/15/19 24 9:40 AM ROCK WOOL APPLICATOR documented as of this encounter Care Teams Laborer Shaft Sinking Relationship Specialty Start Date End Date Pankaj Rosenberg MD [address] [address] PCP - General INTERNAL MEDICINE 06/15/21 documented as of this encounter
--- OUTSIDE RECORDS SUMMARY | 2024-05-13 11:19 | XMS_ITS | Encounter Summary ---
Author Organization [facility] Address [address] [place] [address]. [place], [place] [address] [place] [address] Care Team Providers Care Instructional Technology Coach Name Role Phone Pankaj Rosenberg MD Primary Care Provider [phone] Encounter Details Date Type Department Care Team [...] on file Legal Sex Male 2:58 PM CLINICAL PROFESSOR Gender Identity Male 07/13/2021 5:19 AM CLINICAL PROFESSOR Sexual Orientation Straight 07/13/2021 5: 19 AM CLINICAL PROFESSOR documented as of this encounter Plan of Treatment Upcoming Encounters Date Type Department Care Team (Late st Contact Info) Description 05/15/2024 3:30 PM CLINICAL PROFESSOR Appointment [facility] [place] [address] Pankaj Rosenberg MD [address] [address] 05/25/2024 12:45 PM CLINICAL PROFESSOR Office Visit [facility] Physical Therapy [address] [address] Pankaj Rosenberg MD [address] [address] Maya Magaña, [place] [address] 05/30/2024 3:40 PM CLINICAL PROFESSOR Office Visit [facility] Medical [facility] Multispecialty Care - [place] [address] [address] [place] [address] Pankaj Rosenberg MD [address] [address] 06/20/2024 3:40 PM CLINICAL PROFESSOR [facility] - [place] [address] [address] [place] [address] Pankaj Rosenberg MD [address] [address] 06/21/2024 1:00 PM CLINICAL PROFESSOR Office Visit [facility] Medical Group Orthopedic & Sports Medicine - [place] [address] [place] [address] Jose Ratliff MD [address] [place] [place] [address] 03/27/2025 1:00 PM CLINICAL PROFESSOR Office Visit [facility] Medical [facility] Multispecialty Care - [facility] [address] [facility] [place] [address] Bob Oneal MD 3 [facility] [address] [place] [address] documented as of this encounter Visit Diagnoses Not on filedocumented in this encounter Additional Health Concerns Assessment Noted Time PHQ-9 Depression Total Score: 4 06/15/19 24 9:40 AM CLINICAL PROFESSOR documented as of this encounter Care Teams Instructional Technology Coach Relationship Specialty Start Date End Date Pankaj Rosenberg MD [address] [address] PCP - General INTERNAL MEDICINE 06/15/21 documented as of this encounter
--- OUTSIDE RECORDS SUMMARY | 2024-05-13 11:19 | XMS_ITS | Encounter Summary ---
Author Organization [facility] Address [address] [place] [address]. [place], [place] [address] [place] [address] Care Team Providers Care Coating Machine Operator Helper Name Role Phone Pankaj Rosenberg MD Primary Care Provider [phone] Encounter Details Date Type Department Care Team (Late st Contact Info) Description 07/18/2023 Orders Only [facility] Medical Group Multispecialty Care - [place] [address] [address] [place] [address] Pankaj Rosenberg MD [address] [place] [address] 157 [place] [address] Social History Tobacco Use Types Packs/Day Years [...] on file Legal Sex Male 2:58 PM TEST CENTER ADMINISTRATOR Gender Identity Male 07/13/2021 5:19 AM TEST CENTER ADMINISTRATOR Sexual Orientation Straight 07/13/2021 5: 19 AM TEST CENTER ADMINISTRATOR documented as of this encounter Plan of Treatment Upcoming Encounters Date Type Department Care Team (Late st Contact Info) Description 05/15/2024 3:30 PM TEST CENTER ADMINISTRATOR Appointment [facility] [place] [address] Pankaj Rosenberg MD [address] [address] 05/25/2024 12:45 PM TEST CENTER ADMINISTRATOR Office Visit [facility] Physical Therapy Replaced by [facility] [address] Pankaj Rosenberg MD [address] [address] aMya Magaña, [place] [address] 05/30/2024 3:40 PM TEST CENTER ADMINISTRATOR Office Visit [facility] Medical [facility] Multispecialty [facility] - [place] [address] [address] [place] [address] Pankaj Rosenberg MD Replaced by [facility] [address] [address] 06/20/2024 3:40 PM TEST CENTER ADMINISTRATOR Telemedicine [facility] Medical [facility] Multispecialty [facility] - [place] [address] [address] [place] [address] Pankaj Rosenberg MD [address] [address] 06/21/2024 1:00 PM TEST CENTER ADMINISTRATOR Office Visit [facility] Medical Group Orthopedic & Sports Medicine - [place] [address] [place] [address] Jose Ratliff MD [address] [address] [place] [address] 03/27/2025 1:00 PM TEST CENTER ADMINISTRATOR Office Visit [facility] Medical [facility] Multispecialty Care - [facility] 3 [facility] [address] [place] [address] Bob Oneal MD 3 [facility] [address] [place] [address] documented as of this encounter Procedures Procedure Name Priority Date/Time Associated Diagnosis Comments CELIAC DISEASE COMP PANEL Routine 07/18/2023 11:42 AM TEST CENTER ADMINISTRATOR CBC W/DIFF AUTOMATED Routine 07/18/2023 11:42 AM TEST CENTER ADMINISTRATOR LIPASE Routine 07/18/2023 11:42 AM TEST CENTER ADMINISTRATOR documented in this encounter Results * LIPASE (07/18/2023 11:42 AM TEST CENTER ADMINISTRATOR) LIPASE 24 7 - 60 U/L [facility] 07/18/2023 11:4 2 AM TEST CENTER ADMINISTRATOR 07/18/2023 11:42 AM TEST CENTER ADMINISTRATOR Narrative [email or web address] ORDERS - 07/21/2023 2:39 AM TEST CENTER ADMINISTRATOR FASTING:NO FASTING: NO Resulting Agency Comment Performing Organization Information: ?Site ID: [id number] ?Name: [facility] ?Address: [id number] [place] [address] [place] [address] ?Director: Radha Scott MD Pankaj Rosenberg MD LABORATORY Final Result [email or web address] [address] [place] [address], * CELIAC DISEASE COMP PANEL (07/18/2023 11:42 AM TEST CENTER ADMINISTRATOR) INTERPRETATION [facility] Comment: No serological [...] mg/dL [facility] 07/18/2023 11:4 2 AM TEST CENTER ADMINISTRATOR 07/18/2023 11:42 AM TEST CENTER ADMINISTRATOR Narrative [facility] - 07/21/2023 2:39 AM TEST CENTER ADMINISTRATOR FASTING:NO FASTING: NO Resulting Agency Comment Performing Organization Information: ?Site ID: [id number] ?Name: [facility] ?Address: [address] [place] [address] ?Director: Desmond Montelongo Pankaj Rosenberg MD LABORATORY Final Result [facility] [address] [place] [address] * (ABNORMAL) CBC W/DIFF AUTOMATED (07/18/2023 11:42 AM TEST CENTER ADMINISTRATOR) WBC 9.0 3.8 - 10.8 Thousand/ uL [facility] RBC 5.17 4.20 - 5.80 Million/u L [facility] HGB 13.5 13.2 - 17.1 g/dL [facility] [...] [facility] 07/18/2023 11:4 2 AM TEST CENTER ADMINISTRATOR 07/18/2023 11:42 AM TEST CENTER ADMINISTRATOR Narrative [facility] - 07/21/2023 2:39 AM TEST CENTER ADMINISTRATOR FASTING:NO FASTING: NO Resulting Agency Comment Performing Organization Information: ?Site ID: [id number] ?Name: [employer] [facility] ?Address: [address] [place], [place] [address] ?Director: Radha Scott MD us Pankaj Rosenberg MD LABORATORY Final Result [email or web address] [id number] [place] [address] documented in this encounter Visit Diagnoses Not on filedocumented in this encounter Additional Health Concerns Assessment Noted Time PHQ-9 Depression Total Score: 4 06/15/19 24 9:40 AM TEST CENTER ADMINISTRATOR documented as of this encounter Care Teams Coating Machine Operator Helper Relationship Specialty Start Date End Date Pankaj Rosenberg MD [address] [address] PCP - General INTERNAL MEDICINE 06/15/21 documented as of this encounter
--- OUTSIDE RECORDS SUMMARY | 2024-05-13 11:19 | XMS_ITS | Encounter Summary ---
Author Organization [facility] Address [address] [place] [address]. [place], [place] [address] [place] [address] Care Team Providers Care Social Work Instructor Name Role Phone Pankaj Rosenberg MD Primary Care Provider [phone] Reason for Visit * Reason Onset Date Comments Medication 06/21/2023 Encounter Details Date Type Department Care Team (Late st Contact Info) Description 06/21/2023 Telephone [facility] Medical Group Multispecialty Care [place] [address] [address] [place] [address] Pankaj Rosenberg MD [address] [place] [address] 157 [place], [place] [id number] Medication Social History Tobacco Use Types Packs/Day [...] file Legal Sex Male 2:58 PM CLINICAL MICROBIOLOGIST Gender Identity Male 07/13/2021 5:19 AM CLINICAL MICROBIOLOGIST Sexual Orientation Straight 07/13/2021 5: 19 AM CLINICAL MICROBIOLOGIST documented as of this encounter Plan of Treatment Upcoming Encounters Date Type Department Care Team (Late st Contact Info) Description 05/15/2024 3:30 PM CLINICAL MICROBIOLOGIST [facility] [place] [phone] Pankaj Rosenberg MD [address] [address] 05/25/2024 12:45 PM CLINICAL MICROBIOLOGIST Office Visit [facility] Physical Therapy [facility] [address] Pankaj Rosenberg MD [address] [address] Maya Magaña, [place] [address] 05/30/2024 3:40 PM CLINICAL MICROBIOLOGIST Office Visit [facility] Medical [facility] Multispecialty Care - [place] [address] [address] [place] [address] Pankaj Rosenberg MD [address] [address] 06/20/2024 3:40 PM CLINICAL MICROBIOLOGIST Telemedicine [facility] - [place] [address] [address] [place] [address] Pankaj Rosenberg MD [address] [address] 06/21/2024 1:00 PM CLINICAL MICROBIOLOGIST Office Visit [facility] Medical Group Orthopedic & Sports Medicine - [place] [address] [place] [address] Jsoe Ratliff MD [address] [address] [place] [address] 03/27/2025 1:00 PM CLINICAL MICROBIOLOGIST Office Visit [facility] Medical [facility] Multispecialty Care - [facility] [address] [place] [address] Bob Oneal MD 3 [facility] [address] [place] [address] documented as of this encounter Visit Diagnoses Diagnosis Type 2 diabetes mellitus with hyperglycemia, without long-term current use of insulin ([facility])- Primary documented in this encounter Additional Health Concerns Assessment Noted Time PHQ-9 Depression Total Score: 4 06/15/19 24 9:40 AM CLINICAL MICROBIOLOGIST documented as of this encounter Care Teams Social Work Instructor Relationship Specialty Start Date End Date Pankaj Rosenberg MD 1188 [facility] 157 [place] [address] PCP - General INTERNAL MEDICINE 06/15/21 documented as of this encounter
--- OUTSIDE RECORDS SUMMARY | 2024-05-13 11:19 | XMS_ITS | Encounter Summary ---
Author Organization [facility] Address [address] [place] [address]. [place], [place] [address] [place] [address] Care Team Providers Care Merry Go Round Operator Name Role Phone Pankaj Rosenberg MD Primary Care Provider Encounter Details Date Type Department Care Team (Late st Contact Info) Description 06/20/2023 MyChart Message Enc [facility] Medical Group Multispecialty Care - [place] [address] [address] [place], [place] [phone] Pankaj Rosenberg MD [address] [place] [address] 157 [place], [place] [phone] Medication Social History Tobacco Use Types Packs/Day [...] file Legal Sex Male 2:58 PM AUTO CLUTCH REBUILDER Gender Identity Male 07/13/2021 5:19 AM AUTO CLUTCH REBUILDER Sexual Orientation Straight 07/13/2021 5: 19 AM AUTO CLUTCH REBUILDER documented as of this encounter Plan of Treatment Upcoming Encounters Date Type Department Care Team (Late st Contact Info) Description 05/15/2024 3:30 PM AUTO CLUTCH REBUILDER [facility] [place] [place] [address] Pankaj Rosenberg MD [address] [address] 05/25/2024 12:45 PM AUTO CLUTCH REBUILDER Office Visit [facility] Physical Therapy [address] [place] [address] Pankaj Rosenberg MD [address] [address] Maya Magaña, [place] [address] 05/30/2024 3:40 PM AUTO CLUTCH REBUILDER Office Visit [facility] Medical [facility] Multispecialty Care - [place] [address] [address] [place] [address] Pankaj Rosenberg MD [facility] [address] [address] 06/20/2024 3:40 PM AUTO CLUTCH REBUILDER Telemedicine [facility] Medical [facility] Multispecialty Care - [place] [address] [address] [place] [address] Pankaj Rosenberg MD [address] [address] 06/21/2024 1:00 PM AUTO CLUTCH REBUILDER Office Visit [facility] Medical Group Orthopedic & Sports Medicine - [place] [address] [place] [address] Jose Ratliff MD [address] [address] [place] [address] 03/27/2025 1:00 PM AUTO CLUTCH REBUILDER Office Visit [facility] Medical Group Multispecialty Care - [facility] 3 [facility], [address] [place] [address] Bob Oneal MD 3 [facility] [address] [place] [address] documented as of this encounter Visit Diagnoses Not on filedocumented in this encounter Additional Health Concerns Assessment Noted Time PHQ-9 Depression Total Score: 4 06/15/19 24 9:40 AM AUTO CLUTCH REBUILDER documented as of this encounter Care Teams Merry Go Round Operator Relationship Specialty Start Date End Date Pankaj Rosenberg MD 1188 [facility] [address] [place] [address] PCP - General INTERNAL MEDICINE 06/15/21 documented as of this encounter
--- OUTSIDE RECORDS SUMMARY | 2024-05-13 11:19 | XMS_ITS | Encounter Summary ---
Author Organization [facility] Address [address] [place] [address]. [place], [place] [address] [place] [address] Care Team Providers Care Copywriter Name Role Phone Pankaj Rosenberg MD Primary Care Provider [phone] Reason for Visit * Reason Onset Date Comments Medication 06/17/2023 Encounter Details Date Type Department Care Team (Late st Contact Info) Description 06/17/[address] [facility] Medical Group Multispecialty Care - [place] [address] [address] [place] [address] Pankaj Rosenberg MD [address] [place] [address] 157 [place], [place] [address] Medication Social History Tobacco Use Types Packs/Day [...] on file Legal Sex Male 2:58 PM DESIGN RELEASE ENGINEER Gender Identity Male 07/13/2021 5:19 AM DESIGN RELEASE ENGINEER Sexual Orientation Straight 07/13/2021 5: 19 AM DESIGN RELEASE ENGINEER documented as of this encounter Progress Notes * Viviana Romero MA - 06/20/2023 3:35 PM CST Prior auth started via [employer] GN RELEASE ENGINEER * Pankaj Rosenberg MD - 06/17/2023 6:17 PM CST Preauthorization needed on Januvia. Please work on PA for Januvia for patient thank you. I called and spoke to patient and he has a few tablets to last for about 48 hours thanks. GN RELEASE ENGINEER * Artur Cruz - 06/17/2023 3:45 PM CST Pt called today and stated that the pharmacy stated he needs a pre authorization for Januvia 25 mg,he cis ompletely out, pls call pt GN RELEASE ENGINEER documented in this encounter Plan of Treatment Upcoming Encounters Date Type Department Care Team (Late st Contact Info) Description 05/15/2024 3:30 PM DESIGN RELEASE ENGINEER Appointment [facility] [place] [address] [place] [address] [place] [address] 05/25/2024 12:45 PM DESIGN RELEASE ENGINEER Office [facility] Physical Therapy [address] [place] [address] [place] [address] [place] [address] Maya Magaña, [place] [address] 05/30/2024 3:40 PM DESIGN RELEASE ENGINEER Office Visit [facility] Medical Group Multispecialty Care - [place] [address] [address] [place] [address] Pankaj Rosenberg MD 1188 [facility] 157 [place] [address] 06/20/2024 3:40 PM DESIGN RELEASE ENGINEER Telemedicine [facility] Multispecialty [facility] - [place] [address] [address] [place] [address] Pankaj Rosenberg MD 1188 [facility] 157 [place] [address] 06/21/2024 1:00 PM DESIGN RELEASE ENGINEER Office Visit [facility] Orthopedic & Sports Medicine - [place] [address] [place] [address] Jose Ratliff MD 670 [facility] [address] [place] [address] 03/27/2025 1:00 PM DESIGN RELEASE ENGINEER Office Visit [facility] Multispecialty Care - [facility] 3 [facility] [address] [place] [address] Bob Oneal MD 3 [facility] [address] [place] [address] documented as of this encounter Visit Diagnoses Diagnosis Type 2 diabetes mellitus with hyperglycemia, without long-term current use of insulin ([facility] Primary documented in this encounter Additional Health Concerns Assessment Noted Time PHQ-9 Depression Total Score: 4 06/15/19 24 9:40 AM DESIGN RELEASE ENGINEER documented as of this encounter Care Teams Copywriter Relationship Specialty Start Date End Date Pankaj Rosenberg MD 1188 [facility] 157 [place] [address] PCP - General INTERNAL MEDICINE 06/15/21 documented as of this encounter
--- OUTSIDE RECORDS SUMMARY | 2024-05-13 11:19 | XMS_ITS | Encounter Summary ---
Author Organization [facility] Address [address] [place] [address]. [place], [place] [address] [place] [address] Care Team Providers Care Theatrical Rigger Name Role Phone Pankaj Rosenberg MD Primary Care Provider [phone] Encounter Details Date Type Department Care Team [...] on file Legal Sex Male 2:58 PM TINSMITH APPRENTICE Gender Identity Male 07/13/2021 5:19 AM TINSMITH APPRENTICE Sexual Orientation Straight 07/13/2021 5: 19 AM TINSMITH APPRENTICE documented as of this encounter Plan of Treatment Upcoming Encounters Date Type Department Care Team (Late st Contact Info) Description 05/15/2024 3:30 PM TINSMITH APPRENTICE Appointment [facility] [place] [address] Pankaj Rosenberg MD [address] [address] 05/25/2024 12:45 PM TINSMITH APPRENTICE Office Visit [facility] Physical Therapy [address] [address] Pankaj Rosenberg MD [address] [address] Maya Magaña, [place] [address] 05/30/2024 3:40 PM TINSMITH APPRENTICE Office Visit [facility] Medical [facility] Multispecialty Care - [place] [address] [address] [place] [address] Pankaj Rosenberg MD [address] [address] 06/20/2024 3:40 PM TINSMITH APPRENTICE [facility]icine [facility] - [place] [address] [address] [place] [address] Pankaj Rosenberg MD [address] [address] 06/21/2024 1:00 PM TINSMITH APPRENTICE Office Visit [facility] Medical Group Orthopedic & Sports Medicine - [place] [address] [place] [address] Jose Ratliff MD [phone] [place] [address] 03/27/2025 1:00 PM TINSMITH APPRENTICE Office Visit [facility] Medical [facility] Multispecialty Care - [facility] 3 [facility] [address] [place] [address] Bob Oneal MD 3 [facility] [address] [place] [address] documented as of this encounter Visit Diagnoses Not on filedocumented in this encounter Additional Health Concerns Assessment Noted Time PHQ-9 Depression Total Score: 4 06/15/19 24 9:40 AM TINSMITH APPRENTICE documented as of this encounter Care Teams Theatrical Rigger Relationship Specialty Start Date End Date Pankaj Rosenberg MD [address] [address] PCP - General INTERNAL MEDICINE 06/15/21 documented as of this encounter
--- OUTSIDE RECORDS SUMMARY | 2024-05-13 11:19 | XMS_ITS | Encounter Summary ---
Author Organization [facility] Address [address] [place] [address]. [place], [place] [address] [place] [address] Care Team Providers Care Strategic Insights Lead Name Role Phone Pankaj Rosenberg MD Primary Care Provider Reason for Visit * Reason Onset Date Comments Prior Authorization 06/20/2023 Beryl Encounter Details Date Type Department Care Team (Late st Contact Info) Description 06/20/2023 Telephone [facility] Medical Group Multispecialty Care - [place] [address] [address] [place], [place] [address] Pankaj Rosenberg MD [address] [place] [address] 157 [place] [address] Prior Authorization (Beryl) Social History [...] on file Legal Sex Male 2:58 PM CRYSTALIZER TENDER Gender Identity Male 07/13/2021 5:19 AM CRYSTALIZER TENDER Sexual Orientation Straight 07/13/2021 5: 19 AM CRYSTALIZER TENDER documented as of this encounter Progress Notes * Isela Daily MA - 06/20/2023 1:39 PM CST Sent Beryl KING to insurance company will notify patient if approved or denied. TALIZER TENDER documented in this encounter Plan of Treatment Upcoming Encounters Date Type Department Care Team (Late st Contact Info) Description 05/15/2024 3:30 PM CRYSTALIZER TENDER Appointment [facility] [place] [address] Pankaj Rosenberg MD [address] [place] [address] 05/25/2024 12:45 PM CRYSTALIZER TENDER Office [facility] Physical Therapy [address] [place] [address] Pankaj Rosenberg MD [address] [place] [address] Maya Magaña, [place] [address] 05/30/2024 3:40 PM CRYSTALIZER TENDER Office Visit [facility] Medical [facility] Multispecialty Care - [place] [address] [address] [place] [address] Pankaj Rosenberg MD [facility] [address] [address] 06/20/2024 3:40 PM CRYSTALIZER TENDER Telemedicine [facility] Multispecialty Care - [address] [place] [address] Pankaj Rosenberg MD [facility] [address] [address] 06/21/2024 1:00 PM CRYSTALIZER TENDER Office Visit [facility] Medical Group Orthopedic & Sports Medicine - [address] [place] [address] Jose Ratliff MD [address] [address] [place] [address] 03/27/2025 1:00 PM CRYSTALIZER TENDER Office Visit [facility] Medical Group Multispecialty Care - [facility] [address] [facility] [address] [place] [address] Bob Oneal MD [address] [facility] [address] [place] [address] documented as of this encounter Visit Diagnoses Not on filedocumented in this encounter Additional Health Concerns Assessment Noted Time PHQ-9 Depression Total Score: 4 06/15/19 24 9:40 AM CRYSTALIZER TENDER documented as of this encounter Care Teams Strategic Insights Lead Relationship Specialty Start Date End Date Pankaj Rosenberg MD 1188 [facility] 157 [place] [address] PCP - General INTERNAL MEDICINE 06/15/21 documented as of this encounter
--- OUTSIDE RECORDS SUMMARY | 2024-05-13 11:20 | XMS_ITS | Encounter Summary ---
Author Organization [facility] Address [address] [place] [address]. [place] [address] [place] [address] Care Team Providers Care Paradi Tender Name Role Phone Pankaj Rosenberg MD Primary Care Provider [phone] Encounter Details Date Type Department Care Team [...] on file Legal Sex Male 2:58 PM OPERATING SYSTEMS SPECIALIST Gender Identity Male 07/13/2021 5:19 AM OPERATING SYSTEMS SPECIALIST Sexual Orientation Straight 07/13/2021 5: 19 AM OPERATING SYSTEMS SPECIALIST documented as of this encounter Plan of Treatment Upcoming Encounters Date Type Department Care Team (Late st Contact Info) Description 05/15/2024 3:30 PM OPERATING SYSTEMS SPECIALIST Appointment [facility] [place] [address] Pankaj Rosenberg MD 1188 [facility] [address] [place] [address] 05/25/2024 12:45 PM OPERATING SYSTEMS SPECIALIST Office Visit [facility] Physical Therapy [address] [place] [address] Pankaj Rosenberg MD [address] [address] Maya Magaña, [place] [address] 05/30/2024 3:40 PM OPERATING SYSTEMS SPECIALIST Office Visit [facility] Multispecialty Care - [place] [address] [address] [place] [address] Pankaj Rosenberg MD [facility] [address] [address] 06/20/2024 3:40 PM OPERATING SYSTEMS SPECIALIST [facility] - [place] [address] [address] [place] [address] Pankaj Rosenberg MD [facility] [address] [address] 06/21/2024 1:00 PM OPERATING SYSTEMS SPECIALIST Office Visit [facility] Medical Group Orthopedic & Sports Medicine - [place] [address] [place] [address] Jose Ratliff MD 6[address] [facility] [address] [place] [address] 03/27/2025 1:00 PM OPERATING SYSTEMS SPECIALIST Office Visit [facility] Medical Group Multispecialty Care - [facility] 3 [facility] [address] [place] [address] Bob Oneal MD 3 [facility] [address] [place] [address] documented as of this encounter Visit Diagnoses Not on filedocumented in this encounter Additional Health Concerns Assessment Noted Time PHQ-9 Depression Total Score: 2 03/09/20 23 2:22 PM CDT documented as of this encounter Care Teams Paradi Tender Relationship Specialty Start Date End Date Pankaj Rosenberg MD [address] [address] PCP - General INTERNAL MEDICINE 06/15/21 documented as of this encounter
--- OUTSIDE RECORDS SUMMARY | 2024-05-13 11:20 | XMS_ITS | Encounter Summary ---
Author Organization [facility] Address [address] [place] [address]. [place], [place] [address] [place] [address] Care Team Providers Care Live Hanger Name Role Phone Pankaj Rosenberg MD Primary Care Provider [phone] Reason for Visit * Reason Onset Date Comments Medication 06/02/2023 Encounter Details Date Type Department Care Team (Late st Contact Info) Description 06/02/2023 Telephone [facility] Medical Group Multispecialty Care - [place] [address] [address] [place] [address] Pankaj Rosenberg MD [address] [place] [address] 157 [place], [place] [id number] Medication Social History Tobacco Use Types Packs/Day [...] on file Legal Sex Male 2:58 PM HEALTHCARE CONSULTING MANAGER Gender Identity Male 07/13/2021 5:19 AM HEALTHCARE CONSULTING MANAGER Sexual Orientation Straight 07/13/2021 5: 19 AM HEALTHCARE CONSULTING MANAGER documented as of this encounter Progress Notes * Bertha Bonilla MA - 06/02/2023 2:53 PM CST Spoke with pharmacy againg and they ran his insurance correctky this time and both of his medications went through with no co pay so he will get them at 0 cost to him THCARE CONSULTING MANAGER * Pankaj Rosenberg MD - 06/02/2023 10:56 AM CST I have prescribed pantoprazole to replace his omeprazole and resent ezetimibe. Please find out if aPA is needed on any of these medications and let me know please. Thank you. THCARE CONSULTING MANAGER * Artur Cruz - 06/02/2023 9:46 AM CST Pt called today and stated that his insurance will not cover Ezetimibe 10 mg and Omeprazole 40 mg. His Omeprazole [facility] will not cover at all and Medicaid partial. Patient would like you to help get itcovered, pt only has one pill left Primary Ins- U[employer] Secondary- Medicaid THCARE CONSULTING MANAGER documented in this encounter Plan of Treatment Upcoming Encounters Date Type Department Care Team (Late st Contact Info) Description 05/15/2024 3:30 PM HEALTHCARE CONSULTING MANAGER Appointment [facility] [place] [address] Pankaj Rosenberg MD [address] [place] [phone] 05/25/2024 12:45 PM HEALTHCARE CONSULTING MANAGER Office Visit [facility] Physical Therapy [address] [place] [phone] Pankaj Rosenberg MD [address] [address] Maya Magaña, [place] [address] 05/30/2024 3:40 PM HEALTHCARE CONSULTING MANAGER Office Visit [facility] Multispecialty Care - [place] [address] [address] [place] [address] Pankaj Rosenberg MD [address] [address] 06/20/2024 3:40 PM HEALTHCARE CONSULTING MANAGER Telemedicine [facility] Multispecialty [facility] - [place] [address] [address] [place] [address] Pankaj Rosenberg MD [address] [address] 06/21/2024 1:00 PM HEALTHCARE CONSULTING MANAGER Office Visit [facility] Orthopedic & Sports Medicine - [place] [address] [place] [address] Jose Ratliff MD 670 [facility] [address] [place] [address] 03/27/2025 1:00 PM HEALTHCARE CONSULTING MANAGER Office Visit [facility] Multispecialty Care - [facility] 3 [facility], [address] [place] [address] Bob Oneal MD 3 [facility] 5000 [place] [address] documented as of this encounter Visit Diagnoses Diagnosis Gastroesophageal reflux disease without esophagitis- Primary Esophageal reflux Mixed hyperlipidemia documented in this encounter Additional Health Concerns Assessment Noted Time PHQ-9 Depression Total Score: 2 03/09/20 23 2:22 PM CDT documented as of this encounter Care Teams Live Hanger Relationship Specialty Start Date End Date Pankaj Rosenberg MD [address] [place] [phone] PCP - General INTERNAL MEDICINE 06/15/21 documented as of this encounter
--- OUTSIDE RECORDS SUMMARY | 2024-05-13 11:20 | XMS_ITS | Encounter Summary ---
Author Organization [facility] Address [address] [place] [address]. [place], [place] [address] [place] [address] Care Team Providers Care Breeder Service Technician Name Role Phone Pankaj Rosenberg MD Primary Care Provider [phone] Reason for Visit * Reason Onset Date Comments Information 02/03/2023 Encounter Details Date Type Department Care Team (Late st Contact Info) Description 02/03/2023 Telephone [facility] Medical Group Multispecialty Care - [place] [address] [address] [place] [address] Pankaj Rosenberg MD [address] [place] [address] 157 [place] [address] Information Social History Tobacco Use [...] on file Legal Sex Male 2:58 PM HERB DIGGER Gender Identity Male 07/13/2021 5:19 AM HERB DIGGER Sexual Orientation Straight 07/13/2021 5: 19 AM HERB DIGGER documented as of this encounter Progress Notes * Isela Daily MA - 02/04/2023 11:23 AM CDT Faxed over office notes from Dr Rosenberg and Dr Andino to [facility] * Artur Cruz - 02/03/2023 3:15 PM CDT Reece called needing recent office notes pls fax to [phone]. documented in this encounter Plan of Treatment Upcoming Encounters Date Type Department Care Team (Late st Contact Info) Description 05/15/2024 3:30 PM HERB DIGGER Appointment [place] [address] Pankaj Rosenberg MD [address] [place] [address] 05/25/2024 12:45 PM HERB DIGGER Office Visit [facility] Physical Therapy [address] [place] [address] Pankaj Rosenberg MD [address] [place] [address] Maya Magaña, [place] [address] 05/30/2024 3:40 PM HERB DIGGER Office Visit [facility] - [place] [address] [address] [place] [address] Pankaj Rosenberg MD [facility] [address] [address] 06/20/2024 3:40 PM HERB DIGGER [facility]icine [facility] [place] [address] [address] [place] [address] Pankaj Rosenberg MD [address] [place] [address] [place] [address] 06/21/2024 1:00 PM HERB DIGGER Office Visit [facility] Orthopedic & Sports Medicine - [place] [address] [place] [address] Jose Ratliff MD [address] [address] [place] [address] 03/27/2025 1:00 PM HERB DIGGER Office Visit [facility] Multispecialty Care - [facility] 3 [facility] [address] [place] [address] Bob Oneal MD 3 [facility] [address] [place] [address] documented as of this encounter Visit Diagnoses Not on filedocumented in this encounter Additional Health Concerns Assessment Noted Time PHQ-9 Depression Total Score: 0 08/01/19 22 2:12 PM CDT documented as of this encounter Care Teams Breeder Service Technician Relationship Specialty Start Date End Date Pankaj Rosenberg MD [address] [address] PCP - General INTERNAL MEDICINE 06/15/21 documented as of this encounter
--- OUTSIDE RECORDS SUMMARY | 2024-05-13 11:20 | XMS_ITS | Encounter Summary ---
Author Organization [facility] Address [address] [place] [address]. [place], [place] [address] [place] [address] Care Team Providers Care Director Of Rooms Name Role Phone Pankaj Rosenberg MD Primary Care Provider [phone] Reason for Visit * Reason Onset Date Comments Medication 06/03/2023 Encounter Details Date Type Department Care Team (Late st Contact Info) Description 06/03/2023 Telephone [facility] Medical Group Multispecialty Care - [place] [address] [address] [place] [address] Pankaj Rosenberg MD [address] [place] [address] 157 [place], [place] [id number] Medication Social History Tobacco Use Types Packs/Day [...] on file Legal Sex Male 2:58 PM SOLARIS ADMINISTRATOR Gender Identity Male 07/13/2021 5:19 AM SOLARIS ADMINISTRATOR Sexual Orientation Straight 07/13/2021 5: 19 AM SOLARIS ADMINISTRATOR documented as of this encounter Progress Notes * Bertha Bonilla MA - 06/03/2023 12:34 PM CST Spoke with patient and informed him of his medication sent to pharmacy RIS ADMINISTRATOR * Bertha Bonilla MA - 06/03/2023 12:34 PM CST ----- Message from Pankaj Rosenberg MD sent at 06/03/2023 11:54 AM SOLARIS ADMINISTRATOR ----- Omeprazole sent. ----- Message ----- From: Bertha Bonilla MA Sent: 06/03/2023 9:29 AM SOLARIS ADMINISTRATOR To: Pankaj Rosenberg MD ----- Message from Bertha Bonilla MA sent at 06/03/2023 9:29 AM SOLARIS ADMINISTRATOR ----- Thanks for the update. If he still has any issues with this elizondo to let me know. Thank you again. ----- Message ----- From: Bertha Bonilla MA Sent: 06/02/2023 12:13 PM SOLARIS ADMINISTRATOR To: Pankaj Rosenberg MD RIS ADMINISTRATOR documented in this encounter Plan of Treatment Upcoming Encounters Date Type Department Care Team (Late st Contact Info) Description 05/15/2024 3:30 PM SOLARIS ADMINISTRATOR Appointment [facility] [place] [address] Pankaj Rosenberg MD [address] [phone] 05/25/2024 12:45 PM SOLARIS ADMINISTRATOR Office Visit [facility] Physical Therapy [address] [place] [address] Pankaj Rosenberg MD [address] [phone] Maya Magaña, [place] [address] 05/30/2024 3:40 PM SOLARIS ADMINISTRATOR Office Visit [facility] Multispecialty Care - [place] [address] [address] [place] [address] Pankaj Rosenberg MD [address] [address] 06/20/2024 3:40 PM SOLARIS ADMINISTRATOR Telemedicine [facility] Multispecialty [facility] - [place] [address] [address] [place] [address] Pankaj Rosenberg MD [address] [address] 06/21/2024 1:00 PM SOLARIS ADMINISTRATOR Office Visit [facility] Orthopedic & Sports Medicine - [place] [address] [place] [address] Jose Ratliff MD [address] [address] [place] [address] 03/27/2025 1:00 PM SOLARIS ADMINISTRATOR Office Visit [facility] Multispecialty Care - [facility] [address] [facility], [address] [place] [address] Bob Oneal MD 3 [facility] [address] [place] [address] documented as of this encounter Visit Diagnoses Not on filedocumented in this encounter Additional Health Concerns Assessment Noted Time PHQ-9 Depression Total Score: 2 03/09/20 23 2:22 PM CDT documented as of this encounter Care Teams Director Of Rooms Relationship Specialty Start Date End Date Pankaj Rosenberg MD [address] [place] [address] PCP - General INTERNAL MEDICINE 06/15/21 documented as of this encounter
--- OUTSIDE RECORDS SUMMARY | 2024-05-13 11:20 | XMS_ITS | Encounter Summary ---
Author Organization [facility] Address [address] [place] [address]. [place], [place] [address] [place] [address] Care Team Providers Care Horticultural Manager Name Role Phone Pankaj Rosenberg MD Primary Care Provider [phone] Reason for Referral * Consultation (Urgent) - Closed Specialty Diagnoses / Procedures Referred By Contac t Referred To Contact UROLOGY Diagnoses Low testosterone in male Procedures OFFICE/OUTPATIENT NEW LOW MDM 30-44 MINUTES OFFICE/OUTPT VISIT,NEW,LEVL IV OFFICE/OUTPT VISIT,NEW,LEVL V OFFICE/OUTPT VISIT,EST,LEVL III OFFICE/OUTPT VISIT,EST,LEVL IV OFFICE/OUTPT VISIT,EST,LEVL V Pankaj Rosenberg MD 1188 [facility] [address] [place] [address] Phone: tel: fax: Sally Espitia PA 3 [facility] [address] [place] [address] Phone: tel: fax: Referral ID Status Reason Start Date Expiration Date V isits Requested Visits Authorized [id number] Closed Specialty Services 03/09/2023 03/09/2024 99 99 [...] Description 03/09/2023 1:40 PM CDT Office Visit [facility] Medical Group Multispecialty Care - [address] [place] [address] Pankaj Rosenberg MD 1188 [facility] 157 [place] [address] Follow Up (Medication pt states he had [...] on file Legal Sex Male 2:58 PM SOFT DRINK POWDER MIXER Gender Identity Male 07/13/2021 5:19 AM SOFT DRINK POWDER MIXER Sexual Orientation Straight 07/13/2021 5: 19 AM SOFT DRINK POWDER MIXER documented as of this encounter Last [...] of spinous process of cervical vertebra (HHS/HCC) ([facility]/HCC) Essential hypertension, benign Deviated nasal septum Allergic rhinitis Arthrogryposis Type 2 diabetes mellitus with hyperglycemia, without long-term current use of insulin ([facility]/HCC) (CMS/HCC) Gastroesophageal reflux disease without esophagitis Nausea [...] by Bob Oneal MD at [facility] OR SEPTOPLASTY SMALL INTESTINE SURGERY Family History [...] 90 mL 1 Blood Glucose Monitoring Suppl (Tresata VERIO REFLECT) w/Device Kit 1 Units by [...] by mouth daily. 90 tablet 1 Lancets (CiashopUCH DELICA PLUS [id number]) [facility] USE 1 LANCET TO PRICK FINGER TWICE [...] long-term current use of insulin ([facility]/HCC) ([facility]) E11.65 TYPE 2 DIABETES MELLITUS LIPID PANEL COMPREHENSIVE METABOLIC PANEL CBC W/DIFF AUTOMATED SITagliptin (JANUVIA) 25 mg Tab HEMOGLOBIN, GLYCOSYLATED 2. Recurrent major depressive disorder, remission status unspecified ([facility]) F33.9 RECURRENT MAJOR DEPRESSION buPROPion (WELLBUTRIN) 75 MG tablet 3. Low testosterone in male R79.89 TESTOSTERONE LEVEL BELOW REFERENCE RANGE Ambulatory referral to Urology (OTHER) 4. Essential hypertension, benign I10 BENIGN ESSENTIAL HYPERTENSION lisinopril (PRINIVIL) 10 MG tablet amLODIPine (NORVASC) 10 MG tablet 5. Hypertension associated with type 2 diabetes mellitus ([facility]/HCC) ([facility]) E11.59 HYPERTENSIVE DISORDER lisinopril (PRINIVIL) [...] (pneumococcus) Z23 REQUIRES VACCINATION AGAINST STREPTOCOCCUS PNEUMONIAE [27613] Prevnar 13 (Pneumococcal) 10. Hyperlipidemia due to type 2 diabetes mellitus ([facility]/HCC) ([facility]) E11.69 HYPERLIPIDEMIA DUE TOTYPE 2 DIABETES MELLITUS pravastatin (PRAVACHOL) 40 MG tablet E78.5 1. Recurrent major depressive disorder, remission status unspecified ([facility]) -Currently patient's symptoms improving though [...] without long-term current use of insulin (HHS/HCC) ([facility]) -Stable and controlled - LIPID [...] associated with type 2 diabetes mellitus (HHS/HCC) ([facility]) -Stable and controlled. Refill sent. [...] prophylactic vaccination against Streptococcus pneumoniae (pneumococcus) - [92755] Prevnar 13 (Pneumococcal) Counseling given: Yes Tobacco comments: counseled by Dr Rosenberg I personally spent a total of 40 minutes on the day of the encounter. This includes vxwx-de-rfab and tcm-iiyk-kg-face time I provided on the day of [...] was at least in part performed using [employer] and there may be some inherent flaws in this tool and die machinist due to the nature of this program. Pankaj Rosenberg MD Internal Medicine [facility]. documented in this encounter Plan of Treatment Upcoming Encounters Date Type Department Care Team (Late st Contact Info) Description 05/15/2024 3:30 PM SOFT DRINK POWDER [place] [address] Pankaj Rosenberg MD [address] [place] [address] 05/25/2024 12:45 PM SOFT DRINK POWDER MIXER Office Visit [facility] Physical Therapy [address] [place] [address] Pankaj Rosenberg MD [address] [address] Maya Magaña, [place] [address] 05/30/2024 3:40 PM SOFT DRINK POWDER MIXER Office Visit [facility] Multispecialty [facility] - [address] [place] [address] Pankaj Rosenberg MD [address] [address] 06/20/2024 3:40 PM SOFT DRINK POWDER MIXER [facility] - [place] [address] [address] [place] [address] Pankaj Rosenberg MD [address] [address] 06/21/2024 1:00 PM SOFT DRINK POWDER MIXER Office Visit [facility] Orthopedic & Sports Medicine - [place] [address] [place] [address] Jose Ratliff MD [phone] [place] [address] 03/27/2025 1:00 PM SOFT DRINK POWDER MIXER Office Visit [facility] Multispecialty [facility] - [address], [address] [place] [address] Bob Oneal MD 3 [facility] [address] [place] [address] Scheduled Referrals Name Type Priority Associated Diagnoses Orde r Schedule Ambulatory referral to Urology (OTHER) Referral Routine Low testosterone in male Ordered: 03/09/2023 documented as of this encounter Visit Diagnoses Diagnosis Type 2 diabetes mellitus with hyperglycemia, without long-term current use of insulin ([facility])- Primary Recurrent major depressive disorder, remission status unspecified ([facility]) Low testosterone in male Essential hypertension, benign Hypertension associated with type 2 diabetes mellitus ([facility] HHS/[facility]) Mixed hyperlipidemia Environmental allergies Allergic rhinitis, cause unspecified Allergic rhinitis, unspecified seasonality, unspecified trigger Need for prophylactic vaccination against Streptococcus pneumoniae (pneumococcus) Need for prophylactic vaccination against streptococcus pneumoniae (pneumococcus) Hyperlipidemia due to type 2 diabetes mellitus ([facility] H[facility]) documented in this encounter Additional Health Concerns Assessment Noted Time PHQ-9 Depression Total Score: 2 03/09/20 23 2:22 PM CDT documented as of this encounter Care Teams Horticultural Manager Relationship Specialty Start Date End Date Pankaj Rosenberg MD 1188 [facility] [address] [place] [place] [address] PCP - General INTERNAL MEDICINE 06/15/21 documented as of this encounter
--- OUTSIDE RECORDS SUMMARY | 2024-05-13 11:20 | XMS_ITS | Encounter Summary ---
Author Organization [facility] Address [address] [place] [address]. [place], [place] [address] [place] [address] Care Team Providers Care Behavior Analyst Name Role Phone Pankaj Rosenberg MD Primary Care Provider [phone] Encounter Details Date Type Department Care Team (Latest Contact Info) Description 03/09/2023 Travel Social History Tobacco Use Types Packs/Day [...] on file Legal Sex Male 2:58 PM ENVELOPE FOLDING MACHINE OPERATOR Gender Identity Male 07/13/2021 5:19 AM ENVELOPE FOLDING MACHINE OPERATOR Sexual Orientation Straight 07/13/2021 5: 19 AM ENVELOPE FOLDING MACHINE OPERATOR documented as of this encounter Plan of Treatment Upcoming Encounters Date Type Department Care Team (Late st Contact Info) Description 05/15/2024 3:30 PM ENVELOPE FOLDING MACHINE OPERATOR Appointment [facility] [place] [address] Pankaj Rosenberg MD [address] [address] 05/25/2024 12:45 PM ENVELOPE FOLDING MACHINE OPERATOR Office Visit [facility] Physical Therapy [address] [address] Pankaj Rosenberg MD [address] [address] Maya Magaña, [place] [address] 05/30/2024 3:40 PM ENVELOPE FOLDING MACHINE OPERATOR Office Visit [facility] Medical [facility] Multispecialty Care - [place] [address] [address] [place] [address] Pankaj Rosenberg MD [address] [address] 06/20/2024 3:40 PM ENVELOPE FOLDING MACHINE OPERATOR [facility] - [place] [address] [address] [place] [address] Pankaj Rosenberg MD [address] [address] 06/21/2024 1:00 PM ENVELOPE FOLDING MACHINE OPERATOR Office Visit [facility] Medical Group Orthopedic & Sports Medicine - [place] [address] [place] [address] Jose Ratliff MD [phone] [place] [address] 03/27/2025 1:00 PM ENVELOPE FOLDING MACHINE OPERATOR Office Visit [facility] Medical [facility] Multispecialty Care - [facility] 3 [facility] [address] [place] [address] Bob Oneal MD 3 [facility] [address] [place] [address] documented as of this encounter Visit Diagnoses Not on filedocumented in this encounter Additional Health Concerns Assessment Noted Time PHQ-9 Depression Total Score: 2 03/09/20 23 2:22 PM CDT documented as of this encounter Care Teams Behavior Analyst Relationship Specialty Start Date End Date Pankaj Rosenberg MD [address] [address] PCP - General INTERNAL MEDICINE 06/15/21 documented as of this encounter
--- OUTSIDE RECORDS SUMMARY | 2024-05-13 11:20 | XMS_ITS | Encounter Summary ---
Author Organization [facility] Address [address] [place] [address]. [place] [address] [place] [address] Care Team Providers Care Paramedic Name Role Phone Pankaj Rosenberg MD Primary Care Provider [phone] Encounter Details Date Type Department Care Team (Latest Contact Info) Description 04/12/2023 Scan HEALTH INFO SRVCS Scanned, Doc Med [...] on file Legal Sex Male 2:58 PM CONSULTING HR PROFESSIONAL Gender Identity Male 07/13/2021 5:19 AM CONSULTING HR PROFESSIONAL Sexual Orientation Straight 07/13/2021 5: 19 AM CONSULTING HR PROFESSIONAL documented as of this encounter Plan of Treatment Upcoming Encounters Date Type Department Care Team (Late st Contact Info) Description 05/15/2024 3:30 PM CONSULTING HR PROFESSIONAL Appointment [facility] [place] [address] Pankaj Rosenberg MD 1188 [facility] [address] [place] [address] 05/25/2024 12:45 PM CONSULTING HR PROFESSIONAL Office Visit [facility] Physical Therapy [address] [place] [address] Pankaj Rosenberg MD [address] [address] Maya Magaña, [place] [address] 05/30/2024 3:40 PM CONSULTING HR PROFESSIONAL Office Visit [facility] Multispecialty Care - [place] [address] [address] [place] [address] Pankaj Rosenberg MD [facility] [address] [address] 06/20/2024 3:40 PM CONSULTING HR PROFESSIONAL [facility] - [place] [address] [address] [place] [address] Pankaj Rosenberg MD [facility] [address] [address] 06/21/2024 1:00 PM CONSULTING HR PROFESSIONAL Office Visit [facility] Medical Group Orthopedic & Sports Medicine - [place] [address] [place] [address] Jose Ratliff MD 670 [facility] [phone] [place] [address] 03/27/2025 1:00 PM CONSULTING HR PROFESSIONAL Office Visit [facility] Medical Group Multispecialty Care - [facility] 3 [facility] [address] [place] [address] Bob Oneal MD 3 [facility] [address] [place] [address] documented as of this encounter Visit Diagnoses Not on filedocumented in this encounter Additional Health Concerns Assessment Noted Time PHQ-9 Depression Total Score: 2 03/09/20 23 2:22 PM CDT documented as of this encounter Care Teams Paramedic Relationship Specialty Start Date End Date Pankaj Rosenberg MD [address] [address] PCP - General INTERNAL MEDICINE 06/15/21 documented as of this encounter
--- OUTSIDE RECORDS SUMMARY | 2024-05-13 11:20 | XMS_ITS | Encounter Summary ---
Author Organization [facility] Address [address] [place] [address]. [place] [address] [place] [address] Care Team Providers Care Obstetrics Gyn Name Role Phone Pankaj Rosenberg MD Primary Care Provider [phone] Reason for Visit * Reason Comments Lab [...] on file Legal Sex Male 2:58 PM KERSEY DEPARTMENT SUPERVISOR Gender Identity Male 07/13/2021 5:19 AM KERSEY DEPARTMENT SUPERVISOR Sexual Orientation Straight 07/13/2021 5: 19 AM KERSEY DEPARTMENT SUPERVISOR documented as of this encounter Plan of Treatment Upcoming Encounters Date Type Department Care Team (Late Contact Info) Description 05/15/2024 3:30 PM KERSEY DEPARTMENT SUPERVISOR [facility] [place] [address] Pankaj Rosenberg MD 1188 [facility] [address] [place] [address] 05/25/2024 12:45 PM KERSEY DEPARTMENT SUPERVISOR Office Visit [facility] Physical Therapy 1188 [facility] [address] [place] [address] Pankaj Rosenberg MD 1188 [facility] 157 [place] [address] Maya Magaña, PT One [facility] [place] [address] 05/30/2024 3:40 PM KERSEY DEPARTMENT SUPERVISOR [facility] - [address] [place] [address] Pankaj Rosenberg MD [address] [address] 06/20/2024 3:40 PM KERSEY DEPARTMENT SUPERVISOR Telemedicine [facility] - [place] [address] [address] [place] [address] Pankaj Rosenberg MD [address] [address] 06/21/2024 1:00 PM KERSEY DEPARTMENT SUPERVISOR Office Visit [facility] Orthopedic & Sports Medicine - [place] [address] [place] [address] Jose Ratliff MD [address] [address] [place] [address] 03/27/2025 1:00 PM KERSEY DEPARTMENT SUPERVISOR [facility] - [facility] 3 [facility] [address] [place] [address] Bob Oneal MD 3 [facility] [address] [place] [address] documented as of this encounter Procedures Procedure Name Priority Date/Time Associated Diagnosis Comments OUTSIDE LAB (SCAN ORDER) 05/06/2023 ULTRASOUND GENERIC (SCAN ORDER) 05/06/2023 documented in this encounter Results * OUTSIDE LAB (SCAN) (05/06/2023) 05/06/2023 [facility] Scanned SCANNING Final Resu lt * ULTRASOUND GENERIC (05/06/2023) Anatomical Region Laterality Modality Other 05/06/2023 us [facility] Scanned SCANNING Final Resu lt documented in this encounter Visit Diagnoses Not on filedocumented in this encounter Additional Health Concerns Assessment Noted Time PHQ-9 Depression Total Score: 2 03/09/20 23 2:22 PM CDT documented as of this encounter Care Teams Obstetrics Gyn Relationship Specialty Start Date End Date Pankaj Rosenberg MD [address] [address] PCP - General INTERNAL MEDICINE 06/15/21 documented as of this encounter
--- OUTSIDE RECORDS SUMMARY | 2024-05-13 11:20 | XMS_ITS | Encounter Summary ---
Author Organization [facility] Address [address] [place] [address]. [place], [place] [address] [place] [address] Care Team Providers Care Import Customer Service Manager Name Role Phone Pankaj Rosenberg MD Primary Care Provider [phone] Encounter Details Date Type Department Care Team (Latest Contact Info) Description 12/28/2022 APX Message [facility] Multispecialty Care - [place] [address] [address] [place] [address] [facility] Provider Reschedule Appointment with Dr. Rosenberg [...] file Legal Sex Male 2:58 PM CERTIFIED PEDORTHOTIST Gender Identity Male 07/13/2021 5:19 AM CERTIFIED PEDORTHOTIST Sexual Orientation Straight 07/13/2021 5: 19 AM CERTIFIED PEDORTHOTIST documented as of this encounter Plan of Treatment Upcoming Encounters Date Type Department Care Team (Late st Contact Info) Description 05/15/2024 3:30 PM CERTIFIED PEDORTHOTIST Appointment [facility] [address] [place] [address] [place] [address] 157 [place] [address] 05/25/2024 12:45 PM CERTIFIED PEDORTHOTIST Office Visit [facility] Physical Therapy [address] [facility] 157 [place] [address] Pankaj Rosenberg MD 1188 [facility] 157 [place] [address] Maya Magaña, [place] [address] 05/30/2024 3:40 PM CERTIFIED PEDORTHOTIST Office Visit [facility] Multispecialty [facility] [place] [address] [facility] [address] [place] [address] Pankaj Rosenberg MD [address] [address] 06/20/2024 3:40 PM CERTIFIED PEDORTHOTIST [facility] [place] [address] [place] [address] [address] [place] [address] Pankaj Rosenberg MD [address] [address] 06/21/2024 1:00 PM CERTIFIED PEDORTHOTIST Office Visit [facility] Medical [facility] Orthopedic & Sports Medicine - [place] [address] [place] [address] Jose Ratliff MD [address] [address] [place] [address] 03/27/2025 1:00 PM CERTIFIED PEDORTHOTIST Office Visit [facility] Multispecialty Care - [facility] 3 [facility] [address] [place] [address] Bob Oneal MD [address] [address] documented as of this encounter Visit Diagnoses Not on filedocumented in this encounter Additional Health Concerns Assessment Noted Time PHQ-9 Depression Total Score: 0 08/01/19 22 2:12 PM CDT documented as of this encounter Care Teams Import Customer Service Manager Relationship Specialty Start Date End Date Pankaj Rosenberg MD [address] [address] PCP - General INTERNAL MEDICINE 06/15/21 documented as of this encounter
--- OUTSIDE RECORDS SUMMARY | 2024-05-13 11:20 | XMS_ITS | Encounter Summary ---
Author Organization [facility] Address [address] [place] [address]. [place], [place] [address] [place] [address] Care Team Providers Care Anesthesiology Physician Assistant Name Role Phone Pankaj Rosenberg MD Primary Care Provider [phone] Reason for Visit * Reason Onset Date Comments Information 06/02/2023 Encounter Details Date Type Department Care Team (Late st Contact Info) Description 06/02/2023 Telephone [facility] Medical Group Multispecialty Care - [place] [address] [address] [place] [address] Pankaj Rosenberg MD [address] [place] [address] 157 [place] [address] Information Social History Tobacco Use [...] file Legal Sex Male 2:58 PM DATA INTEGRITY ANALYST Gender Identity Male 07/13/2021 5:19 AM DATA INTEGRITY ANALYST Sexual Orientation Straight 07/13/2021 5: 19 AM DATA INTEGRITY ANALYST documented as of this encounter Progress Notes * Bertha Bonilla MA - 06/03/2023 9:27 AM CST Patient would like for you to send in the omeprazole instead of the pantoprazole since his insurance will cover it thank you INTEGRITY ANALYST * Bertha Bonilla MA - 06/02/2023 12:11 PM CST Spoke with the pharmcy his primary insurance is covering both medications but his secondary wont cover because its over the limit the pay for so his co pays are 21.42 and 15.00 dollars I left a message for the patient to call meso I could explain this to him INTEGRITY ANALYST documented in this encounter Plan of Treatment Upcoming Encounters Date Type Department Care Team (Late st Contact Info) Description 05/15/2024 3:30 PM DATA INTEGRITY ANALYST Appointment [facility] [address] Paknaj Rosenberg MD [address] [place] [address] 05/25/2024 12:45 PM DATA INTEGRITY ANALYST Office Visit Health system Physical Therapy [address] [place] [address] Pankaj Rosenberg MD [address] [place] [address] Maya Magaña, [place] [address] 05/30/2024 3:40 PM DATA INTEGRITY ANALYST Office Visit [facility] Multispecialty Care - [place] [address] [address] [place] [address] Pankaj Rosenberg MD [address] [place] [address] 06/20/2024 3:40 PM DATA INTEGRITY ANALYST Telemedicine [facility] Multispecialty Care - [place] [address] [address] [place] [address] [place] [address] [place] [address] 157 [place] [address] 06/21/2024 1:00 PM DATA INTEGRITY ANALYST Office Visit [facility] Orthopedic & Sports Medicine - [place] [address] [place] [address] Jose Ratliff MD [address] [address] [place] [address] 03/27/2025 1:00 PM DATA INTEGRITY ANALYST Office Visit [facility] Multispecialty [facility] - [facility] 3 [facility] [address] [place] [address] Bob Oneal MD 3 [facility] [address] [place] [address] documented as of this encounter Visit Diagnoses Not on filedocumented in this encounter Additional Health Concerns Assessment Noted Time PHQ-9 Depression Total Score: 2 03/09/20 23 2:22 PM CDT documented as of this encounter Care Teams Anesthesiology Physician Assistant Relationship Specialty Start Date End Date Pankaj Rosenberg MD [address] [place] [address] PCP - General INTERNAL MEDICINE 06/15/21 documented as of this encounter
--- OUTSIDE RECORDS SUMMARY | 2024-05-13 11:20 | XMS_ITS | Encounter Summary ---
Author Organization [facility] Address [address] [place] [address]. [place], [place] [address] [place] [address] Care Team Providers Care Manager Drive Name Role Phone Pankaj Rosenberg MD Primary Care Provider [phone] Reason for Visit * Reason Onset Date Comments Medication 06/03/2023 Encounter Details Date Type Department Care Team (Late st Contact Info) Description 06/03/2023 Telephone [facility] Medical Group Multispecialty Care - [place] [address] [address] [place] [address] Pankaj Rosenberg MD [address] [place] [address] [address] [place], [place] [id number] Medication Social History Tobacco Use Types Packs/Day [...] on file Legal Sex Male 2:58 PM LION TAMER Gender Identity Male 07/13/2021 5:19 AM LION TAMER Sexual Orientation Straight 07/13/2021 5: 19 AM LION TAMER documented as of this encounter Progress Notes * Pankaj Rosenberg MD - 06/03/2023 11:53 AM CST Patient will like omeprazole instead- sent. TAMER * Pankaj Rosenberg MD - 06/03/2023 11:53 AM CST ----- Message from Bertha Bonilla MA sent at 06/03/2023 9:29 AM LION TAMER ----- Thanks for the update. If he still has any issues with this elizondo to let me know. Thank you again. ----- Message ----- From: Bertha Bonilla MA Sent: 06/02/2023 12:13 PM LION TAMER To: Pankaj Rosenberg MD TAMER documented in this encounter Plan of Treatment Upcoming Encounters Date Type Department Care Team (Late st Contact Info) Description 05/15/2024 3:30 PM LION TAMER Appointment [facility] [place] [address] Pankaj Rosenberg MD [address] [place] [address] 05/25/2024 12:45 PM LION TAMER Office Visit [facility] [place] Physical Therapy [address] [place] [address] Pankaj Rosenberg MD [address] [place] [address] Maya Magaña, [place] [address] 05/30/2024 3:40 PM LION TAMER Office Visit [facility] Medical Group Multispecialty Care - [place] [address] [address] [place] [address] Pankaj Rosenberg MD [address] [place] [address] 06/20/2024 3:40 PM LION TAMER Telemedicine [facility] Multispecialty Care - [place] [facility] [facility] [address] [place] [address] Pankaj Rosenberg MD [address] [address] 06/21/2024 1:00 PM LION TAMER Office Visit [facility] Orthopedic & Sports Medicine - [place] [address] [place] [address] Jose Ratliff MD [address] [place] [address] [place] [address] 03/27/2025 1:00 PM LION TAMER [facility] 3 [facility] [address] [place] [address] Bob Oneal MD 3 [facility] [address] [place] [address] documented as of this encounter Visit Diagnoses Diagnosis Gastroesophageal reflux disease without esophagitis- Primary Esophageal reflux documented in this encounter Additional Health Concerns Assessment Noted Time PHQ-9 Depression Total Score: 2 03/09/20 23 2:22 PM CDT documented as of this encounter Care Teams Manager Drive Relationship Specialty Start Date End Date Pankaj Rosenberg MD 1188 [facility] 157 [place] [address] PCP - General INTERNAL MEDICINE 06/15/21 documented as of this encounter
--- OUTSIDE RECORDS SUMMARY | 2024-05-13 11:20 | XMS_ITS | Encounter Summary ---
Author Organization [facility] Address [address] [place] [address]. [place] [address] [place] [address] Care Team Providers Care Diesel Truck Driver Name Role Phone Pankaj Rosenberg MD Primary Care Provider [phone] Reason for Visit * Reason Onset Date Comments Appointment Request 03/21/2023 Encounter Details Date Type Department Care Team (Late st Contact Info) Description 03/21/2023 Telephone [facility] Medical Group Multispecialty Care - [facility] 3 [facility] [address] [place] [address] Milton Andino MD 3 [facility] [address] [place] [address] Appointment Request Social History Tobacco Use Types [...] on file Legal Sex Male 2:58 PM FOUNDER Gender Identity Male 07/13/2021 5:19 AM FOUNDER Sexual Orientation Straight 07/13/2021 5: 19 AM FOUNDER documented as of this encounter Progress Notes * China Pineda CRT - 03/21/2023 1:22 PM CST Called patient and LMOM stating that their appt on 03/25/[address] Andino in [place] will becancelled due to the provider out of the office. Advised patient to call back to get rescheduled. - if patient calls back, please schedule next available [address] Andino (okay for video visit) DER documented in this encounter Plan of Treatment Upcoming Encounters Date Type Department Care Team (Late st Contact Info) Description 05/15/2024 3:30 PM FOUNDER Appointment [facility] [address] Pankaj Rosenberg MD [address] [place] [address] 05/25/2024 12:45 PM FOUNDER Office Visit [facility] Physical Therapy [address] [place] [address] Pankaj Rosenberg MD [address] [place] [address] Maya Magaña, [place] [address] 05/30/2024 3:40 PM FOUNDER [facility] [place] [address] [place] [address] Pankaj Rosenberg MD [address] [place] [address] 06/20/2024 3:40 PM FOUNDER [facility] [place] [address] [address] [place] [address] Pankaj Rosenberg MD 1188 [facility] 157 [place] [address] 06/21/2024 1:00 PM FOUNDER Office Visit [facility] Orthopedic & Sports Medicine - [place] [address] [place] [address] Jose Ratliff MD [address] [address] [place] [address] 03/27/2025 1:00 PM FOUNDER Office Visit [facility] Multispecialty Care - [facility] 3 [facility] [place] [address] Bob Oneal MD 3 [facility] [address] [place] [address] documented as of this encounter Visit Diagnoses Not on filedocumented in this encounter Additional Health Concerns Assessment Noted Time PHQ-9 Depression Total Score: 2 03/09/20 23 2:22 PM CDT documented as of this encounter Care Teams Diesel Truck Driver Relationship Specialty Start Date End Date Pankaj Rosenberg MD [address] [address] PCP - General INTERNAL MEDICINE 06/15/21 documented as of this encounter
--- OUTSIDE RECORDS SUMMARY | 2024-05-13 11:20 | XMS_ITS | Encounter Summary ---
Author Organization [facility] Address [address] [place] [address]. [place], [place] [address] [place] [address] Care Team Providers Care Senior Software Engineer Analytics Name Role Phone Pankaj Rosenberg MD Primary Care Provider [phone] Reason for Visit * Reason Onset Date Comments Follow Up Call 03/09/2023 Encounter Details Date Type Department Care Team (Late st Contact Info) Description 03/09/2023 Telephone [facility] Medical Group Multispecialty Care - [place] [address] [address] [place], [place] [address] Pankaj Rosenberg MD [address] [place] [address] 157 [place] [address] Follow Up Call Social History [...] on file Legal Sex Male 2:58 PM OTR FLATBED DRIVER Gender Identity Male 07/13/2021 5:19 AM OTR FLATBED DRIVER Sexual Orientation Straight 07/13/2021 5: 19 AM OTR FLATBED DRIVER documented as of this encounter Progress Notes * Doc Ribera - 03/14/2023 8:33 AM CDT Paperwork and AVS faxed to [facility] on 03/14/23. * Pankaj Rosenberg MD - 03/09/2023 2:35 PM CDT Please reach out to [facility] on behalf of this patient. They want a form filled out for him to report compliance with CPAP. Have them fax it over and will get this form filled out for him thank you. documented in this encounter Plan of Treatment Upcoming Encounters Date Type Department Care Team (Late st Contact Info) Description 05/15/2024 3:30 PM OTR FLATBED DRIVER Appointment [facility] [place] [address] Pankaj Rosenberg MD [address] [place] [address] 05/25/2024 12:45 PM OTR FLATBED DRIVER Office Visit [facility] Physical Therapy [address] [place] [address] Pankaj Rosenberg MD [facility] [address] [address] Maya Magaña, [place] [address] 05/30/2024 3:40 PM OTR FLATBED DRIVER Office Visit [place] [address] [address] [place], [place] [address] Pankaj Rosenberg MD [address] [address] 06/20/2024 3:40 PM OTR FLATBED DRIVER Telemedicine [facility] [address] [place] [address] Pankaj Rosenberg MD 1188 [facility] 157 [place] [address] 06/21/2024 1:00 PM OTR FLATBED DRIVER Office Visit [facility] Orthopedic & Sports Medicine - [place] [address] [place] [address] Jose Ratliff MD [address] [place] [address] [place] [address] 03/27/2025 1:00 PM OTR FLATBED DRIVER Office Visit [facility] Multispecialty Care - [facility] 3 [facility] [address] [place] [address] Bob Oneal MD 3 [facility] [address] [place] [address] documented as of this encounter Visit Diagnoses Not on filedocumented in this encounter Additional Health Concerns Assessment Noted Time PHQ-9 Depression Total Score: 2 03/09/20 23 2:22 PM CDT documented as of this encounter Care Teams Senior Software Engineer Analytics Relationship Specialty Start Date End Date Pankaj Rosenberg MD [address] [place] [address] 157 [place] [address] PCP - General INTERNAL MEDICINE 06/15/21 documented as of this encounter
--- OUTSIDE RECORDS SUMMARY | 2024-05-13 11:20 | XMS_ITS | Encounter Summary ---
Author Organization [facility] Address [address] [place] [address]. [place], [place] [address] [place] [address] Care Team Providers Care City Wellness Coordinator Name Role Phone Pankaj Rosenberg MD Primary Care Provider [phone] Reason for Visit * Reason Comments Follow Up Depression Derm Problem Encounter Details Date Type Department Care Team (Latest Contact Info) Description 06/15/2023 9:20 AM APPLE SOLUTIONS CONSULTANT Office Visit [facility] Medical Group Multispecialty Care - [place] [address] [address] [place] [address] Pankaj Rosenberg MD [address] [place] [address] [address] [place], [place] [id number] Follow Up; Depression; Derm Problem Social History [...] on file Legal Sex Male 2:58 PM APPLE SOLUTIONS CONSULTANT Gender Identity Male 07/13/2021 5:19 AM APPLE SOLUTIONS CONSULTANT Sexual Orientation Straight 07/13/2021 5: 19 AM APPLE SOLUTIONS CONSULTANT documented as of this encounter Last Filed Vital Signs Vital Sign Reading Time Taken Comments Blood Pressure 137/89 06/15/2023 9:45 AM APPLE SOLUTIONS CONSULTANT Pulse 68 06/15/2023 9:16 AM APPLE SOLUTIONS CONSULTANT Temperature 36.7 ??C (98 ??F) 06/15/2023 9:16 AM APPLE SOLUTIONS CONSULTANT Respiratory Rate 16 06/15/2023 9:16 AM APPLE SOLUTIONS CONSULTANT Oxygen Saturation 99% 06/15/2023 9:16 AM APPLE SOLUTIONS CONSULTANT Inhaled Oxygen Concentration - - Weight 117.1 kg (258 lb 3.2 oz) 06/15/2023 9:16 AM APPLE SOLUTIONS CONSULTANT Height 180.3 cm (5' 11 ) 06/15/2023 9:16 AM APPLE SOLUTIONS CONSULTANT Body Mass Index 36.01 06/15/2023 9:16 AM APPLE SOLUTIONS CONSULTANT documented in this encounter Patient Instructions * Patient Instructions* Pankaj Rosenberg MD - 06/15/2023 9:20 AM APPLE SOLUTIONS CONSULTANT Follow up in 4 to 8 weeks for your physical- come fasting. E SOLUTIONS CONSULTANT * Attachments The following attachments cannot be sent through Care Everywhere. * Bacterial Folliculitis Discharge Instructions (Amharic) documented in this encounter Progress Notes * [...] List Diagnosis Mixed hyperlipidemia Traumatic brain injury ([facility]/HCC) Nonalcoholic steatohepatitis Gallbladder polyp Fracture of spinous process of cervical vertebra ([facility]/HCC) ([facility]) Essential hypertension, benign Deviated nasal septum Allergic rhinitis Arthrogryposis Type 2 diabetes mellitus with hyperglycemia, without long-term current use of insulin ([facility]) ([facility]) Gastroesophageal reflux disease without esophagitis Nausea and vomiting, unspecified vomiting type Change in bowel function Epigastric burning sensation KARRIE (obstructive sleep apnea) History of gastroschisis Hypertrophy of nasal turbinates S/P exploratory laparotomy S/P small bowel resection Past Medical History: Diagnosis Date Allergy Arthrogryposis Diabetes mellitus ([facility]/HCC) ([facility]/HCC) 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 90 tablet 1 Lancets ([employer] DELICA PLUS [id number]) Mis USE 1 LANCET TO PRICK FINGER [...] daily. 90 tablet 1 TRUEplus Lancets [address] [facility] Allergies: Review of patient's allergies indicates: Not [...] vaccination against human papillomavirus Z23 REQUIRES VACCINATION [38085] Gardasil 9 (HPV) 2. Recurrent major depressive disorder, remission status unspecified (CMS/HCC) F33.9 RECURRENT MAJOR DEPRESSION buPROPion SR (WELLBUTRIN SR) 150 MG 12 hr tablet 3. Folliculitis L73.9 FOLLICULITIS chlorhexidine (HIBICLENS) 4 % Liquid clindamycin (CLEOCIN T) 1 % external solution doxycycline hyclate (VIBRAMYCIN) 100 MG capsule CULTURE, ROUTINE W/ GRAM STAIN (SMD/SJS/SFL ONLY) 1. Need for prophylactic vaccination against human papillomavirus - [23942] Gardasil 9 (HPV) 2. Recurrent major depressive disorder, remission status unspecified (CMS/HCC) - improving - I personally reviewed PHQ-9 and KANCHAN-7 [...] the day of the encounter. This includes vvpx-il-cykw and jcp-ifjd-gn-face time I provided on the day of [...] was at least in part performed using [employer] and there may be some inherent flaws in this transcription typist due to the nature of this program. Pankaj Rosenberg MD Internal Medicine [facility], [facility]. E SOLUTIONS CONSULTANT documented in this encounter Plan of Treatment Upcoming Encounters Date Type Department Care Team (Late st Contact Info) Description 05/15/2024 3:30 PM APPLE SOLUTIONS CONSULTANT Appointment [facility] [place] [address] Pankaj Rosenberg MD [address] [place] [address] 05/25/2024 12:45 PM APPLE SOLUTIONS CONSULTANT Office Visit [facility] Physical Therapy [address] [place] [address] Pankaj Rosenberg MD [address] [place] [address] Maya Magaña, [place] [address] 05/30/2024 3:40 PM APPLE SOLUTIONS CONSULTANT Office Visit [facility] Multispecialty Care - [place] [address] [facility] [address] [place] [address] Pankaj Rosenberg MD [address] [address] 06/20/2024 3:40 PM APPLE SOLUTIONS CONSULTANT Tele[facility]icine [facility] - [place] [address] [facility] [address] [place] [address] Pankaj Rosenberg MD 1188 [facility] [address] [place] [address] 06/21/2024 1:00 PM APPLE SOLUTIONS CONSULTANT Office Visit [facility] Orthopedic & Sports Medicine - [place] [address] [place] [address] Jose Ratliff MD 670 [facility] [phone] [place] [address] 03/27/2025 1:00 PM APPLE SOLUTIONS CONSULTANT [facility] [address] [facility], [address] [place] [address] Bob Oneal MD 3 [facility] [address] [place] [address] documented as of this encounter Procedures Procedure Name Priority Date/Time Associated Diagnosis Comments CULTURE, ROUTINE W/ GRAM STAIN Routine 06/15/2023 10:32 AM APPLE SOLUTIONS CONSULTANT Folliculitis documented in this encounter Results * CULTURE, ROUTINE W/ GRAM STAIN (SMD/SJS/SFL ONLY) (06/15/2023 10:32 AM APPLE SOLUTIONS CONSULTANT) SPEC DESCRIPTION SCALP: SWAB 06/15/2023 10:33 AM APPLE SOLUTIONS CONSULTANT [facility] SPECIAL REQUESTS NO SPECIAL REQUEST 06/15/2023 10:33 AM APPLE SOLUTIONS CONSULTANT [facility] GRAM STAIN RESULT MODERATE DEGENERATED NEUTROPHILS 06/16/2023 3:33 AM APPLE SOLUTIONS CONSULTANT [facility] GRAM STAIN RESULT NO ORGANISMS SEEN 06/16/2023 3:33 AM APPLE SOLUTIONS CONSULTANT [facility] CULTURE RESULT FEW STAPHYLOCOCCUS, COAGULASE NEGATIVE 06/18/2023 8:30 AM APPLE SOLUTIONS CONSULTANT [facility] SPECIMEN FROM HEAD AND NECK STRUCTURE / Unknown 06/15/2023 10:32 AM APPLE SOLUTIONS CONSULTANT 06/15/2023 8:33 PM APPLE SOLUTIONS CONSULTANT Comment:SWAB Pankaj Rosenberg MD MICROBIOLOGY - GENERAL ORDERABLE S Final Result [facility] [address] [place] [address], [id number] documented in this encounter Visit Diagnoses Diagnosis Need for prophylactic vaccination against human papillomavirus- Primary Need for prophylactic vaccination and inoculation against other viral diseases Recurrent major depressive disorder, remission status unspecified (CMS/HCC) Folliculitis Other specified disease of hair and hair follicles documented in this encounter Additional Health Concerns Assessment Noted Time PHQ-9 Depression Total Score: 4 06/15/19 24 9:40 AM APPLE SOLUTIONS CONSULTANT documented as of this encounter Care Teams City Wellness Coordinator Relationship Specialty Start Date End Date Pankaj Rosenberg MD [address]8 [facility] [address] [place] [address] PCP - General INTERNAL MEDICINE 06/15/21 documented as of this encounter
--- OUTSIDE RECORDS SUMMARY | 2024-05-13 11:20 | XMS_ITS | Encounter Summary ---
Author Organization [facility] Address [address] [place] [address]. [place], [place] [address] [place] [address] Care Team Providers Care Real Estate Office Supervisor Name Role Phone Pankaj Rosenberg MD Primary Care Provider [phone] Reason for Visit * Reason Onset Date Comments Medication 12/02/2022 Encounter Details Date Type Department Care Team (Late st Contact Info) Description 12/02/2022 Telephone [facility] Medical Group Multispecialty Care - [place] [address] [address] [place] [address] Pankaj Rosenberg MD [address] [place] [address] 157 [place], [place] [phone] Medication Social History Tobacco Use Types Packs/Day [...] on file Legal Sex Male 2:58 PM ICE CREAM CHEF Gender Identity Male 07/13/2021 5:19 AM ICE CREAM CHEF Sexual Orientation Straight 07/13/2021 5: 19 AM ICE CREAM CHEF documented as of this encounter Progress Notes * Pankaj Rosenberg MD - 12/02/2022 10:33 AM CDT Patient having sexual side effects since initiating fenofibrate. He does have very low testosteronethough though symptoms worse with initiation of fenofibrate. Stop fenofibrate; orange picking supervisor Zetia. * Pankaj Rosenberg MD - 12/02/2022 10:33 AM CDT ----- Message from Chuck Barlow sent at 12/02/2022 9:24 AM CDT ----- Regarding: Side effect from new medications Contact: [facility] doctor. One of the new medications I have started is giving me a sexual side effect. I???m not sure which medication is causing the issue but I do not like this issue I???m having. documented in this encounter Plan of Treatment Upcoming Encounters Date Type Department Care Team (Late st Contact Info) Description 05/15/2024 3:30 PM ICE CREAM CHEF Appointment [facility] [place] [address] Pankaj Rosenberg MD [address] [place] [address] 05/25/2024 12:45 PM ICE CREAM CHEF Office Visit [facility] Physical Therapy [address] [place] [address] Pankaj Rosenberg MD [address] [place] [address] Maya Magaña, [place] [address] 05/30/2024 3:40 PM ICE CREAM CHEF Office Visit [facility] Medical Group Multispecialty Care - [place] [address] [address] [place] [address] [place] [address] [place] [address] 06/20/2024 3:40 PM ICE CREAM CHEF [facility] - [place] [address] [address] [place] [address] Pankaj Rosenberg MD [address] [address] 06/21/2024 1:00 PM ICE CREAM CHEF Office Visit [facility] Orthopedic & Sports Medicine - [place] [address] [place] [address] Jose Ratliff MD 670 [facility] [address] [place] [address] 03/27/2025 1:00 PM ICE CREAM CHEF [facility] 3 [facility] [address] [place] [address] Bob Oneal MD 3 [facility] [address] [place] [address] documented as of this encounter Visit Diagnoses Diagnosis Mixed hyperlipidemia- Primary documented in this encounter Additional Health Concerns Assessment Noted Time PHQ-9 Depression Total Score: 0 08/01/19 2:12 PM CDT documented as of this encounter Care Teams Real Estate Office Supervisor Relationship Specialty Start Date End Date Pankaj Rosenberg MD [address] [place] [address] PCP - General INTERNAL MEDICINE 06/15/21 documented as of this encounter
--- OUTSIDE RECORDS SUMMARY | 2024-05-13 11:20 | XMS_ITS | Encounter Summary ---
Author Organization [facility] Address [address] [place] [address]. [place], [place] [address] [place] [address] Care Team Providers Care Water Maintenance Supervisor Name Role Phone Pankaj Rosenberg MD Primary Care Provider [phone] Encounter Details Date Type Department Care Team (Late st Contact Info) Description 03/24/2023 Orders Only [facility] Medical Group Multispecialty Care - [place] [address] [address] [place] [address] Pankaj Rosenberg MD [address] [place] [address] 157 [place] [address] Social History Tobacco Use Types Packs/Day Years [...] on file Legal Sex Male 2:58 PM TIME CHECKER Gender Identity Male 07/13/2021 5:19 AM TIME CHECKER Sexual Orientation Straight 07/13/2021 5: 19 AM TIME CHECKER documented as of this encounter Plan of Treatment Upcoming Encounters Date Type Department Care Team (Late st Contact Info) Description 05/15/2024 3:30 PM TIME CHECKER Appointment [facility] [place] [address] Pankaj Rosenberg MD [address] [address] 05/25/2024 12:45 PM TIME CHECKER Office Visit [facility] Physical Therapy [facility] [address] Pankaj Rosenberg MD [address] [address] Maya Magaña, [place] [address] 05/30/2024 3:40 PM TIME CHECKER Office Visit [facility] Medical [facility] Multispecialty [facility] - [place] [address] [address] [place] [address] Pankaj Rosenberg MD [facility] [address] [address] 06/20/2024 3:40 PM TIME CHECKER Telemedicine [facility] Medical [facility] Multispecialty [facility] - [place] [address] [address] [place] [address] Pankaj Rosenberg MD [address] [address] 06/21/2024 1:00 PM TIME CHECKER Office Visit [facility] Medical Group Orthopedic & Sports Medicine - [place] [address] [place] [address] Jose Ratliff MD [address] [address] [place] [address] 03/27/2025 1:00 PM TIME CHECKER Office Visit [facility] Medical [facility] Multispecialty Care - [facility] 3 [facility] [address] [place] [address] Bob Oneal MD 3 [facility] [address] [place] [address] documented as of this encounter Procedures Procedure Name Priority Date/Time Associated Diagnosis Comments HEMOGLOBIN, GLYCOSYLATED Routine 03/24/2023 9:14 AM TIME CHECKER COMPREHENSIVE METABOLIC PANEL Routine 03/24/2023 9:14 AM TIME CHECKER LIPID PANEL Routine 03/24/2023 9:14 AM TIME CHECKER CBC W/DIFF AUTOMATED Routine 03/24/2023 9:14 AM TIME CHECKER documented in this encounter Results * (ABNORMAL) HEMOGLOBIN, GLYCOSYLATED (03/24/2023 9:14 AM TIME CHECKER) HGB A1C 6.4(H) <5.7 % of total Hgb [facility] [place] Comment: For someone without known diabetes, [...] of diabetes for children. 03/24/2023 9:14 AM TIME CHECKER 03/24/2023 9:16 AM TIME CHECKER Narrative [facility] [place] [facility] - 03/25/2023 7:20 AM TIME CHECKER FASTING:YES FASTING: YES Resulting Agency Comment Performing Organization Information: ?Site ID: SL ?Name: [facility] ?Address: [facility] [place] [address] ?Director: Radha Scott Pankaj Rosenberg MD LABORATORY Final Result [facility] [place] [address] [place] [address] * (ABNORMAL) CBC W/DIFF AUTOMATED (03/24/2023 9:14 AM TIME CHECKER) WBC 7.3 3.8 - 10.8 Thousand/ uL [facility] RBC 4.86 4.20 - 5.80 Million/u L [facility] [place] HGB 12.8(L) 13.2 - 17.1 g/dL [facility] HCT 39.2 38.5 - 50.0 % [facility] MCV 80.7 80.0 - 100.0 fL [facility] MCH 26.3(L) 27.0 - 33.0 pg [facility] MCHC 32.7 32.0 - 36.0 g/dL [facility] RDW 13.1 11.0 - 15.0 % [facility] PLT 359 140 - 400 Thousand/ uL [facility] MPV 10.7 7.5 - 12.5 fL [facility] ABS. NEUTROPHILS 4,876 1,500 - 7,800 cells/uL [facility] [place] ABS. LYMPHOCYTES 1,818 850 - 3,900 cells/uL [facility] [place] ABS. MONOCYTES 453 200 - 950 cells/uL [facility] ABS. EOSINOPHILS 117 15 - 500 cells/uL [facility] ABS. BASOPHILS 37 0 - 200 cells/uL [facility] SEG NEUTROPHILS 66.8 % [facility] LYMPHOCYTES 24.9 % [facility] MONOCYTES 6.2 % [facility] EOSINOPHILS 1.6 % [facility] BASOPHILS 0.5 % [facility] 03/24/2023 9:14 AM TIME CHECKER 03/24/2023 9:16 AM TIME CHECKER Narrative [facility] [place] [facility] - 03/25/2023 7:20 AM TIME CHECKER FASTING:YES FASTING: YES Resulting Agency Comment Performing Organization Information: ?Site ID: NM ?Name: [facility] ?Address: [address] [place] [address] ?Director: Radha Scott MD Pankaj Rosenberg MD LABORATORY Final Result [facility] [address] [address] [address], [place] * (ABNORMAL) COMPREHENSIVE METABOLIC PANEL (03/24/2023 9:14 AM TIME CHECKER) GLUCOSE 114(H) 65 - 99 mg/dL [facility] Comment: ? Fasting reference interval For someone without known diabetes, a glucose value between 100 and 125 mg/dL is consistent with prediabetes and should be confirmed with a follow-up test. BUN 12 7 - 25 mg/dL [facility] CREATININE S/P/B 0.72 0.60 - 1.24 mg/dL [facility] GFR ESTIMATE 128 > OR = 60 mL/min/1. 73m2 [facility] BUN CREATININE RATIO SEE NOTE: (calc) [facility] Comment: ?? Not Reported: BUN and Creatinine are within ?? reference range. ? SODIUM S/P/B 138 135 - 146 mmol/L [facility] POTASSIUM S/P/B 4.2 3.5 - 5.3 mmol/L [facility] CHLORIDE S/P/B 105 98 - 110 mmol/L [facility] CO2 23 20 - 32 mmol/L [facility] CALCIUM S/P/B 9.7 8.6 - 10.3 mg/dL [facility] TOTAL PROTEIN S/P/B 7.4 6.1 - 8.1 g/dL [facility] ALBUMIN S/P/B 4.4 3.6 - 5.1 g/dL [facility] GLOBULIN 3.0 1.9 - 3.7 g/dL (calc) [facility] ALBUMIN/GLOBULI N RATIO 1.5 1.0 - 2.5 (calc) [facility] BILIRUBIN TOTAL S/P/B 0.9 0.2 - 1.2 mg/dL [facility] ALKALINE PHOSPHATASE S/P/B 101 36 - 130 U/L [facility] AST 22 10 - 40 U/L [facility] ALT 40 9 - 46 U/L [facility] 03/24/2023 9:14 AM TIME CHECKER 03/24/2023 9:16 AM TIME CHECKER Narrative [facility] - 03/25/2023 7:20 AM TIME CHECKER FASTING:YES FASTING: YES Resulting Agency Comment Performing Organization Information: ?Site ID: [id number] ?Name: Krystian Ivey ?Address: [address] [address] ?Director: Radha Scott MD us Pankaj Rosenberg MD LABORATORY Final Result [facility] [address] [place] [address], * (ABNORMAL) LIPID PANEL (03/24/2023 9:14 AM TIME CHECKER) CHOLESTEROL 140 <200 mg/dL [facility] HDL 34(L) > OR = 40 mg/dL [facility] TRIGLYCERIDES 109 <150 mg/dL [facility] LDL (CALCULATED) 85 mg/dL (calc) [facility] Comment: Reference range: <100 Desirable range <100 mg/dL for primary prevention; ?? <70 mg/dL for patients with CHD or diabetic patients with > or = 2 CHD risk factors. LDL-C is now calculated using the Evens-Leeanna calculation, which is a validated novel method providing better accuracy than the Friedewald equation in the estimation of LDL-C. Evens SS et al. MAYE. 2013;310(19): 2927-0047 (http://education.Xinrong.Kiwi Crate/faq/GRK127) CHOL/HDL RATIO 4.1 <5.0 (calc) [facility] NON HDL CHOLESTEROL 106 <130 mg/dL (calc) [facility] Comment: For patients with diabetes plus 1 major ASCVD risk factor, treating to a non-HDL-C goal of <100 mg/dL (LDL-C of <70 mg/dL) is considered a therapeutic option. 03/24/2023 9:14 AM TIME CHECKER 03/24/2023 9:16 AM TIME CHECKER Narrative [facility] - 03/25/2023 7:20 AM TIME CHECKER FASTING:YES FASTING: YES Resulting Agency Comment Performing Organization Information: ?Site ID: NM ?Name: Krystian Ivey ?Address: [address] [address] ?Director: Radha Scott MD us Pankaj Rosenberg MD LABORATORY Final Result [facility] [address] [place] [place], [place] [address] documented in this encounter Visit Diagnoses Not on filedocumented in this encounter Additional Health Concerns Assessment Noted Time PHQ-9 Depression Total Score: 2 03/09/20 23 2:22 PM CDT documented as of this encounter Care Teams Water Maintenance Supervisor Relationship Specialty Start Date End Date Pankaj Rosenberg MD 1188 [facility] [address] [place] [address] PCP - General INTERNAL MEDICINE 06/15/21 documented as of this encounter
--- OUTSIDE RECORDS SUMMARY | 2024-05-13 11:20 | XMS_ITS | Encounter Summary ---
Author Organization [facility] Address [address] [place] [address]. [place], [place] [address] [place] [address] Care Team Providers Care High Lift Operator Name Role Phone Pankaj Rosenberg MD Primary Care Provider [phone] Reason for Visit * Reason Onset Date Comments Insurance Coverage 12/27/2022 Encounter Details Date Type Department Care Team (Late st Contact Info) Description 12/27/2022 Telephone [facility] Multispecialty Care - [place] [address] [address] [place] [address] Pankaj Rosenberg MD [address] [place] [address] 157 [place], [place] [id number] Insurance Coverage Social History Tobacco Use Types [...] on file Legal Sex Male 2:58 PM GAME AUTHOR Gender Identity Male 07/13/2021 5:19 AM GAME AUTHOR Sexual Orientation Straight 07/13/2021 5: 19 AM GAME AUTHOR documented as of this encounter Progress Notes [...] st Contact Info) Description 05/15/2024 3:30 PM GAME AUTHOR Appointment [facility] [place] [address] Pankaj Rosenberg MD [address] [place] [address] 05/25/2024 12:45 PM GAME AUTHOR Office Visit [facility] Physical Therapy [address] [place] [address] Pankaj Rosenberg MD [address] [place] [address] Maya Magaña, [place] [address] 05/30/2024 3:40 PM GAME AUTHOR [facility] [place] [address] [address] [place] [address] Pankaj Rosenberg MD [facility] [address] 06/20/2024 3:40 PM GAME AUTHOR [facility]icine [facility] [place] [address] [address] [place] [address] Pankaj Rosenberg MD [facility] [address] [address] 06/21/2024 1:00 PM GAME AUTHOR Office Visit [facility] Sports Medicine - [place] [address] [place] [address] Jose Ratliff MD [address] [address] [place] [address] 03/27/2025 1:00 PM GAME AUTHOR Office Visit [facility] Multispecialty Care - [facility] [address] [place] [address] Bob Oneal MD [address] [facility] [address] [place] [address] documented as of this encounter Visit Diagnoses Not on filedocumented in this encounter Additional Health Concerns Assessment Noted Time PHQ-9 Depression Total Score: 0 08/01/19 22 2:12 PM CDT documented as of this encounter Care Teams High Lift Operator Relationship Specialty Start Date End Date Pankaj Rosenberg MD [address] [facility] [address] [place] [address] PCP - General INTERNAL MEDICINE 06/15/21 documented as of this encounter
--- OUTSIDE RECORDS SUMMARY | 2024-05-13 11:20 | XMS_ITS | Encounter Summary ---
Author Organization [facility] Address [address] [place] [address]. [place], [place] [address] [place] [address] Care Team Providers Care Race Car Driver Name Role Phone Pankaj Rosenberg MD Primary Care Provider [phone] Encounter Details Date Type Department Care Team (Latest Contact Info) Description 03/11/2023 [email or web address] Message Enc [facility] Group Multispecialty Care - [place] [address] [address] [place], [place] [id number] Pankaj Rosenberg MD [address] [place] [address] 157 [place], [place] [phone] Specialist referral Social History Tobacco Use Types [...] on file Legal Sex Male 2:58 PM SUPERVISOR CUSTOMER COMPLAINT SERVICE Gender Identity Male 07/13/2021 5:19 AM SUPERVISOR CUSTOMER COMPLAINT SERVICE Sexual Orientation Straight 07/13/2021 5: 19 AM SUPERVISOR CUSTOMER COMPLAINT SERVICE documented as of this encounter Plan of Treatment Upcoming Encounters Date Type Department Care Team (Late st Contact Info) Description 05/15/2024 3:30 PM SUPERVISOR CUSTOMER COMPLAINT SERVICE [facility] [place] [address] Pankaj Rosenberg MD [address] [address] 05/25/2024 12:45 PM SUPERVISOR CUSTOMER COMPLAINT SERVICE Office Visit [facility] Physical Therapy [address] [place] [address] Pankaj Rosenberg MD [address] [address] Maya Magaña, [place] [address] 05/30/2024 3:40 PM SUPERVISOR CUSTOMER COMPLAINT SERVICE Office Visit [facility] Medical [facility] Multispecialty Care - [place] [address] [address] [place] [address] Pankaj Rosenberg MD [facility] [address] [address] 06/20/2024 3:40 PM SUPERVISOR CUSTOMER COMPLAINT SERVICE Telemedicine [facility] Medical [facility] Multispecialty Care - [place] [address] [address] [place] [address] Pankaj Rosenberg MD [address] [address] 06/21/2024 1:00 PM SUPERVISOR CUSTOMER COMPLAINT SERVICE Office Visit [facility] Medical Group Orthopedic & Sports Medicine - [place] [address] [place] [address] Jose Ratliff MD [address] [address] [place] [address] 03/27/2025 1:00 PM SUPERVISOR CUSTOMER COMPLAINT SERVICE Office Visit [facility] Medical Group Multispecialty Care - [facility] [address], [address] [place] [address] Bob Oneal MD [address] [facility] [address] [place] [address] documented as of this encounter Visit Diagnoses Not on filedocumented in this encounter Additional Health Concerns Assessment Noted Time PHQ-9 Depression Total Score: 2 03/09/20 23 2:22 PM CDT documented as of this encounter Care Teams Race Car Driver Relationship Specialty Start Date End Date Pankaj Rosenberg MD [address] [facility] [address] [place] [address] PCP - General INTERNAL MEDICINE 06/15/21 documented as of this encounter
--- OUTSIDE RECORDS SUMMARY | 2024-05-13 11:21 | XMS_ITS | Encounter Summary ---
Author Organization [facility] Address [address] [place] [address]. [place], [place] [address] [place] [address] Care Team Providers Care Rotary Engraver Name Role Phone Pankaj Rosenberg MD Primary Care Provider [phone] Reason for Visit * Reason Onset Date Comments Forms 11/05/2022 Encounter Details Date Type Department Care Team (Late st Contact Info) Description 11/05/2022 Telephone [facility] Medical Group Multispecialty Care - [place] [address] [address] [place] [address] Pankaj Rosenberg MD [address] [place] [address] 157 [place], [place] [phone] Forms Social History Tobacco Use Types Packs/Day [...] on file Legal Sex Male 2:58 PM PRETZEL PACKER Gender Identity Male 07/13/2021 5:19 AM PRETZEL PACKER Sexual Orientation Straight 07/13/2021 5: 19 AM PRETZEL PACKER documented as of this encounter Progress Notes * Pankaj Rosenberg MD - 11/05/2022 7:12 AM CDT Faxing over form to verify patient last visit and future visit with pulmonary for his CPAP over. documented in this encounter Plan of Treatment Upcoming Encounters Date Type Department Care Team (Late st Contact Info) Description 05/15/2024 3:30 PM PRETZEL PACKER Appointment [facility] [place] [address] Pankaj Rosenberg MD [address] [place] [address] 05/25/2024 12:45 PM PRETZEL PACKER Office Visit [facility] Physical Therapy [address] [place] [address] Pankaj Rosenberg MD [address] [place] [address] Maya Magaña, [place] [address] 05/30/2024 3:40 PM PRETZEL PACKER Office Visit [facility] Medical [facility] Multispecialty Care - [place] [address] [address] [place] [address] Pankaj Rosenberg MD [facility] [address] [address] 06/20/2024 3:40 PM PRETZEL PACKER Telemedicine [facility] Medical [facility] Multispecialty Care - [place] [address] [address] [place] [address] Pankaj Rosenberg MD [facility] [address] [address] 06/21/2024 1:00 PM PRETZEL PACKER Office Visit [facility] Medical Group Orthopedic & Sports Medicine - [address] [place] [address] Jose Ratliff MD [address] [address] [place] [address] 03/27/2025 1:00 PM PRETZEL PACKER Office Visit [facility] Medical Group Multispecialty Care - [facility] [address] [place] [address] Bob Oneal MD [address] [facility] [address] [place] [address] documented as of this encounter Visit Diagnoses Not on filedocumented in this encounter Additional Health Concerns Assessment Noted Time PHQ-9 Depression Total Score: 0 08/01/19 2:12 PM CDT documented as of this encounter Care Teams Rotary Engraver Relationship Specialty Start Date End Date Pankaj Rosenberg MD [address] [address] PCP - General INTERNAL MEDICINE 06/15/21 documented as of this encounter
--- OUTSIDE RECORDS SUMMARY | 2024-05-13 11:21 | XMS_ITS | Encounter Summary ---
Author Organization [facility] Address [address] [place] [address]. [place], [place] [address] [place] [address] Care Team Providers Care Savings Teller Name Role Phone Pankaj Rosenberg MD Primary Care Provider [phone] Encounter Details Date Type Department Care Team (Latest Contact Info) Description 12/02/2022 MyChart Message Enc [facility] Medical Group Multispecialty Care - [place] [address] [address] [place], [place] [address] [place] [address] [place] [address] 157 [place], [place] [phone] Side effect from new medications Social History [...] on file Legal Sex Male 2:58 PM SANITATION WORKER CLEANING EQUIPMENT Gender Identity Male 07/13/2021 5:19 AM SANITATION WORKER CLEANING EQUIPMENT Sexual Orientation Straight 07/13/2021 5: 19 AM SANITATION WORKER CLEANING EQUIPMENT documented as of this encounter Plan of Treatment Upcoming Encounters Date Type Department Care Team (Late st Contact Info) Description 05/15/2024 3:30 PM SANITATION WORKER CLEANING EQUIPMENT [facility] [place] [address] Pankaj Rosenberg MD [address] [address] 05/25/2024 12:45 PM SANITATION WORKER CLEANING EQUIPMENT Office Visit [facility] Physical Therapy [address] [address] Pankaj Rosenberg MD [address] [address] Maya Magaña, [place] [address] 05/30/2024 3:40 PM SANITATION WORKER CLEANING EQUIPMENT Office Visit [facility] Medical [facility] Multispecialty Care - [place] [address] [address] [place] [address] Pankaj Rosenberg MD [address] [address] 06/20/2024 3:40 PM SANITATION WORKER CLEANING EQUIPMENT Telemedicine [facility] Medical [facility] Multispecialty [facility] - [place] [address] [address] [place] [address] Pankaj Rosenberg MD [address] [address] 06/21/2024 1:00 PM SANITATION WORKER CLEANING EQUIPMENT Office Visit [facility] Medical Group Orthopedic & Sports Medicine - [place] [address] [place] [address] Jose Ratliff MD [address] [address] [place] [address] 03/27/2025 1:00 PM SANITATION WORKER CLEANING EQUIPMENT Office Visit [facility] Medical Group Multispecialty Care - [facility] 3 [facility] [address] [place] [address] Bob Oneal MD 3 [facility] [address] [place] [address] documented as of this encounter Visit Diagnoses Not on filedocumented in this encounter Additional Health Concerns Assessment Noted Time PHQ-9 Depression Total Score: 0 08/01/19 22 2:12 PM CDT documented as of this encounter Care Teams Savings Teller Relationship Specialty Start Date End Date Pankaj Rosenberg MD [address] [address] PCP - General INTERNAL MEDICINE 06/15/21 documented as of this encounter
--- OUTSIDE RECORDS SUMMARY | 2024-05-13 11:21 | XMS_ITS | Encounter Summary ---
Author Organization [facility] Address [address] [place] [address]. [place], [place] [address] [place] [address] Care Team Providers Care Medical Massage Therapist Name Role Phone Pankaj Rosenberg MD Primary Care Provider [phone] Encounter Details Date Type Department Care Team [...] file Legal Sex Male 2:58 PM VIDEO SYSTEMS ENGINEER Gender Identity Male 07/13/2021 5:19 AM VIDEO SYSTEMS ENGINEER Sexual Orientation Straight 07/13/2021 5: 19 AM VIDEO SYSTEMS ENGINEER documented as of this encounter Plan of Treatment Upcoming Encounters Date Type Department Care Team (Late st Contact Info) Description 05/15/2024 3:30 PM VIDEO SYSTEMS ENGINEER Appointment [facility] [place] [address] Pankaj Rosenberg MD [address] [address] 05/25/2024 12:45 PM VIDEO SYSTEMS ENGINEER Office Visit [facility] Physical Therapy [address] [address] Pankaj Rosenberg MD [address] [address] Maya Magaña, [place] [address] 05/30/2024 3:40 PM VIDEO SYSTEMS ENGINEER Office Visit [facility] Medical [facility] Multispecialty Care - [place] [address] [address] [place] [address] Pankaj Rosenberg MD [address] [address] 06/20/2024 3:40 PM VIDEO SYSTEMS ENGINEER [facility]icine [facility] Emergency Department - [place] [address] [address] [place] [address] Pankaj Rosenberg MD [address] [address] 06/21/2024 1:00 PM VIDEO SYSTEMS ENGINEER Office Visit [facility] Medical Group Orthopedic & Sports Medicine - [place] [address] [place] [address] Jose Ratliff MD [address] [place] [address] 03/27/2025 1:00 PM VIDEO SYSTEMS ENGINEER Office Visit [facility] Medical [facility] Multispecialty Care - [facility] [address] [facility] [place] [address] Bob Oneal MD 3 [facility] [address] [place] [address] documented as of this encounter Visit Diagnoses Not on filedocumented in this encounter Additional Health Concerns Assessment Noted Time PHQ-9 Depression Total Score: 0 08/01/19 2:12 PM CDT documented as of this encounter Care Teams Medical Massage Therapist Relationship Specialty Start Date End Date Pankaj Rosenberg MD [address] [address] PCP - General INTERNAL MEDICINE 06/15/21 documented as of this encounter
--- OUTSIDE RECORDS SUMMARY | 2024-05-13 11:21 | XMS_ITS | Encounter Summary ---
Author Organization [facility] Address [address] [place] [address]. [place], [place] [address] [place] [address] Care Team Providers Care Cob Sawyer Name Role Phone Pankaj Rosenberg MD Primary Care Provider [phone] Reason for Referral * Consultation (Urgent) - Closed Specialty Diagnoses / Procedures Referred By Contac t Referred To Contact ENDOCRINOLOGY Diagnoses Low testosterone in male Procedures OFFICE/OUTPT VISIT,NEW,LEVL III OFFICE/OUTPT VISIT,NEW,LEVL IV OFFICE/OUTPT VISIT,NEW,LEVL V OFFICE/OUTPT VISIT,EST,LEVL III OFFICE/OUTPT VISIT,EST,LEVL IV OFFICE/OUTPT VISIT,EST,LEVL V Pankaj Rosenberg MD [address] [facility] [address] [place] [address] Phone: tel: fax: Lupe Tenorio MD [address] [facility] [place] [address] Phone: tel: fax: Referral ID Status Reason Start Date Expiration Date Visits Re quested Visits Authorized [id number] Closed 11/24/2022 12/26/2023 99 99 Reason for Visit * Reason Comments Diabetes Sleep Problem Hypertension Depression Follow Up Your testosterone le vels, chronic medical issues Ear Problem Encounter Details Date Type Department Care Team (Latest Contact Info) Description 11/24/2022 4:00 PM CDT Office Visit [facility] Medical Group Multispecialty Care - [place] [address] [place] [address] [address] [place] [address] Pankaj Rosenberg MD [address] [facility] 157 [place] [address] Diabetes; Sleep Problem; Hypertension; Depression; Follow Up [...] on file Legal Sex Male 2:58 PM OUTSIDE CUTTER HAND Gender Identity Male 07/13/2021 5:19 AM OUTSIDE CUTTER HAND Sexual Orientation Straight 07/13/2021 5: 19 AM OUTSIDE CUTTER HAND documented as of this encounter Last Filed [...] POLYPECTOMY performed by Bob Oneal MD at [facility] OR SEPTOPLASTY SMALL INTESTINE SURGERY Family [...] 6 tablet 0 Blood Glucose Monitoring Suppl ([employer] VERIO REFLECT) w/Device Kit 1 Units [...] by mouth daily. 90 tablet 1 Lancets (MedlanesUCH DELICA PLUS [id number]) [facility] USE 1 LANCET TO PRICK FINGER TWICE [...] daily. 90 tablet 1 TRUEplus Lancets 33G [facility] Allergies: Review of patient's allergies indicates: No [...] REFERENCE RANGE Ambulatory referral to Endocrinology ([facility]) 2. Essential hypertension, benign I10 401.1 BENIGN ESSENTIAL HYPERTENSION amLODIPine (NORVASC) 10 MG tablet lisinopril (PRINIVIL) 10 MG tablet 3. Hypertension associated with type 2 diabetes mellitus ([facility]) E11.59 250.80 HYPERTENSIVE DISORDER amLODIPine (NORVASC) 10 [...] Hyperlipidemia due to type 2 diabetes mellitus ([facility]) E11.69 250.80 HYPERLIPIDEMIA DUE TO TYPE 2 DIABETES MELLITUS pravastatin (PRAVACHOL) 40 MG tablet E78.5 272.4 fenofibrate 160 MG tablet 9. Type 2 diabetes mellitus with hyperglycemia, without long-term current use of insulin ([facility]) E11.65 250.00 TYPE 2 DIABETES MELLITUS SITagliptin (JANUVIA) 25 mg Tab 790.29 10. Recurrent major depressive disorder, remission status unspecified ([facility]) F33.9 296.30 RECURRENT MAJOR DEPRESSION buPROPion (WELLBUTRIN) 75 MG tablet 11. Dermatitis L30.9 692.9 INFLAMMATORY DERMATOSIS mupirocin (BACTROBAN) 2 % ointment 12. Acute otitis media, unspecified otitis media type H66.90 382.9 ACUTE OTITIS MEDIA methylPREDNISolone, YARON, (MEDROL DOSEPAK) 4 MG tablet azithromycin (ZITHROMAX Z-YARON) 250 MG tablet 1. Low testosterone in male - Ambulatory referral to Endocrinology ([facility]) 2. Essential hypertension, benign - controlled - [...] hyperglycemia, without long-term current use of insulin ([facility]) - controlled - Lifestyle modification including dietary changes to include less saturated fats, lean meat, more vegetables and exercise at least 30 min every day. - continue SITagliptin (JANUVIA) 25 mg Tab; Take 1 tablet (25 mg total) by mouth daily. Dispense: 90 tablet; Refill: 1 10. Recurrent major depressive disorder, remission status unspecified ([facility]) - new diagnosis and not controlled - [...] the day of the encounter. This includes fito-ln-tsiv and jmj-dkiq-qd-face time I provided on the day of [...] was at least in part performed using Not iT and there may be some inherent flaws in this superintendent greens due to the nature of this program. Pankaj Rosenberg MD Internal Medicine [facility]. documented in this encounter Plan of Treatment Upcoming Encounters Date Type Department Care Team (Late st Contact Info) Description 05/15/2024 3:30 PM OUTSIDE CUTTER HAND Appointment [facility] [place] [address] [place] [address] [place] [address] 05/25/2024 12:45 PM OUTSIDE CUTTER HAND Office Visit [facility] Physical Therapy [address] [place] [address] [place] [address] [place] [address] Maya Magaña, [place] [address] 05/30/2024 3:40 PM OUTSIDE CUTTER HAND Office Visit [facility] Medical Group Multispecialty Care - [place] [address] [place] [address] Pankaj Rosenberg MD [facility] [address] 06/20/2024 3:40 PM OUTSIDE CUTTER HAND Telemedicine [facility] Medical [facility] Multispecialty Care - [place] [address] [place] [address] Pankaj Rosenberg MD [facility] [address] [address] 06/21/2024 1:00 PM OUTSIDE CUTTER HAND Office Visit [facility] Medical Group Orthopedic & Sports Medicine - [address] [place] [address] Jose Ratliff MD [address] [address] [place] [address] 03/27/2025 1:00 PM OUTSIDE CUTTER HAND Office Visit [facility] Medical Group Multispecialty Care - [facility] [address] [facility] [address] [place] [address] Bob Oneal MD [address] [facility] [address] [place] [address] Scheduled Referrals Name Type Priority Associated Diagnoses Orde r Schedule Ambulatory referral to Endocrinology ([facility]) Referral Routine Low testosterone in male Ordered: 11/24/2022 documented as of this encounter Visit Diagnoses Diagnosis Low testosterone in male- Primary Essential hypertension, benign Hypertension associated with type 2 diabetes mellitus ([facility]) Gastroesophageal reflux disease without esophagitis Esophageal reflux Environmental allergies Allergic rhinitis, cause unspecified Allergic rhinitis, unspecified seasonality, unspecified trigger Mixed hyperlipidemia Hyperlipidemia due to type 2 diabetes mellitus ([facility]) Type 2 diabetes mellitus with hyperglycemia, without long-term current use of insulin ([facility]) Recurrent major depressive disorder, remission status unspecified ([facility]) Dermatitis Contact dermatitis and other eczema, due to unspecified cause Acute otitis media, unspecified otitis media type documented in this encounter Additional Health Concerns Assessment Noted Time PHQ-9 Depression Total Score: 0 08/01/19 22 2:12 PM CDT documented as of this encounter Care Teams Cob Sawyer Relationship Specialty Start Date End Date Pankaj Rosenberg MD [address] [address] PCP - General INTERNAL MEDICINE 06/15/21 documented as of this encounter
--- OUTSIDE RECORDS SUMMARY | 2024-05-13 11:22 | XMS_ITS | Encounter Summary ---
Author Organization [facility] Address [address] [place] [address]. [place], [place] [address] [place] [address] Care Team Providers Care Ductfixing Plumber Name Role Phone Pankaj Rosenberg MD Primary Care Provider [phone] Reason for Visit * Reason Onset Date Comments Other 07/27/2022 Encounter Details Date Type Department Care Team (Late st Contact Info) Description 07/27/2022 Telephone [facility] Medical Group Multispecialty Care - [place] [address] [address] [place] [address] Pankaj Rosenberg MD [address] [place] [address] 157 [place] [address] Other Social History Tobacco Use [...] file Legal Sex Male 2:58 PM GLUE BONE CRUSHER Gender Identity Male 07/13/2021 5:19 AM GLUE BONE CRUSHER Sexual Orientation Straight 07/13/2021 5: 19 AM GLUE BONE CRUSHER documented as of this encounter Progress Notes [...] Contact Info) Description 05/15/2024 3:30 PM GLUE BONE CRUSHER Appointment [facility] [place] [address] Pankaj Rosenberg MD [address] [place] [address] 05/25/2024 12:45 PM GLUE BONE CRUSHER Office Visit [facility] Physical Therapy [address] [place] [address] Pankaj Rosenberg MD [address] [place] [address] Maya Magaña, [place] [address] 05/30/2024 3:40 PM GLUE BONE CRUSHER [facility] [address] [address] Pankaj Rosenberg MD [address] [place] [address] 06/20/2024 3:40 PM GLUE BONE CRUSHER Telemedicine [place] [address] [address] [place] [address] Pankaj Rosenberg MD [facility] [address] 06/21/2024 1:00 PM GLUE BONE CRUSHER Office Visit [facility] Orthopedic & Sports Medicine - [place] [address] [place] [address] Jose Ratliff MD [address] [address] [place] [address] 03/27/2025 1:00 PM GLUE BONE CRUSHER Office Visit [facility] Multispecialty Care - [facility] 3 [facility] [address] [place] [address] Bob Oneal MD [address] [place] [address] documented as of this encounter Visit Diagnoses Not on filedocumented in this encounter Additional Health Concerns Assessment Noted Time PHQ-9 Depression Total Score: 0 08/01/19 22 2:12 PM CDT documented as of this encounter Care Teams Ductfixing Plumber Relationship Specialty Start Date End Date Pankaj Rosenberg MD [address] [address] PCP - General INTERNAL MEDICINE 06/15/21 documented as of this encounter
--- OUTSIDE RECORDS SUMMARY | 2024-05-13 11:22 | XMS_ITS | Encounter Summary ---
Author Organization [facility] Address [address] [place] [address]. [place], [place] [address] [place] [address] Care Team Providers Care Behavioral Scientist Name Role Phone Pankaj Rosenberg MD Primary Care Provider [phone] Reason for Visit * Reason Onset Date Comments Earache 09/09/2022 Encounter Details Date Type Department Care Team (Late st Contact Info) Description 09/09/2022 Telephone [facility] Medical Group Multispecialty Care - [place] [address] [address] [place] [address] Pankaj Rosenberg MD [address] [place] [address] 157 [place], [place] [address] Earache Social History Tobacco Use Types Packs/Day [...] on file Legal Sex Male 2:58 PM SIMULATION TECH Gender Identity Male 07/13/2021 5:19 AM SIMULATION TECH Sexual Orientation Straight 07/13/2021 5: 19 AM SIMULATION TECH documented as of this encounter Progress [...] st Contact Info) Description 05/15/2024 3:30 PM SIMULATION TECH Appointment [facility] [place] [address] Pankaj Rosenberg MD [address] [place] [address] 05/25/2024 12:45 PM SIMULATION TECH Office Visit [facility] Physical Therapy [address] [place] [address] Pankaj Rosenberg MD [facility] [address] Maya Magaña, [place] [address] 05/30/2024 3:40 PM SIMULATION TECH [facility] - [place] [address] [address] [place] [address] Pankaj Rosenberg MD [facility] [address] [address] 06/20/2024 3:40 PM SIMULATION TECH [facility]icine [facility] [address] [place] [address] Pankaj Rosenberg MD 1188 [facility] 157 [place] [address] 06/21/2024 1:00 PM SIMULATION TECH Office Visit [facility] Orthopedic & Sports Medicine - [place] [address] [place] [address] Jose Ratliff MD [address] [address] [place] [address] 03/27/2025 1:00 PM SIMULATION TECH Office Visit [facility] Multispecialty [facility] - [facility] 3 [facility] [address] [place] [address] Bob Oneal MD 3 [facility] [address] [place] [address] documented as of this encounter Visit Diagnoses Not on filedocumented in this encounter Additional Health Concerns Assessment Noted Time PHQ-9 Depression Total Score: 0 08/01/19 22 2:12 PM CDT documented as of this encounter Care Teams Behavioral Scientist Relationship Specialty Start Date End Date Pankaj Rosenberg MD [address] [place] [address] PCP - General INTERNAL MEDICINE 06/15/21 documented as of this encounter
--- OUTSIDE RECORDS SUMMARY | 2024-05-13 11:22 | XMS_ITS | Encounter Summary ---
Author Organization [facility] Address [address] [place] [address]. [place], [place] [address] [place] [address] Care Team Providers Care Fermenter Name Role Phone Pankaj Rosenberg MD Primary Care Provider [phone] Reason for Visit * Reason Comments Procedure (SCAN) Encounter Details Date Type Department Care Team ([facility] Contact Info) Description 07/13/2022 Scan HEALTH INFO [...] on file Legal Sex Male 2:58 PM ROUND CORNER CUTTER OPERATOR Gender Identity Male 07/13/2021 5:19 AM ROUND CORNER CUTTER OPERATOR Sexual Orientation Straight 07/13/2021 5: 19 AM ROUND CORNER CUTTER OPERATOR COVID-19 Exposure Response Date Recorded In the last 10 days, have yo u been in contact with someone who was confirmed or suspected to have Coronavirus/COVID-19? No / Unsure 06/15/2022 1:57 PM ROUND CORNER CUTTER OPERATOR documented as of this encounter Plan of Treatment Upcoming Encounters Date Type Department Care Team ([facility] Contact Info) Description 05/15/2024 3:30 PM ROUND CORNER CUTTER OPERATOR Appointment [facility] [place] [address] Pankaj Rosenberg MD 1188 [facility] 157 [place] [address] 05/25/2024 12:45 PM ROUND CORNER CUTTER OPERATOR Office Visit [facility] Physical Therapy [facility] [address] Pankaj Rosenberg MD [address] [address] Maya Magaña, [place] [address] 05/30/2024 3:40 PM ROUND CORNER CUTTER OPERATOR Office Visit [facility] Medical [facility] Multispecialty [facility] - [place] [address] [address] [place] [address] Pankaj Rosenberg MD [address] [address] 06/20/2024 3:40 PM ROUND CORNER CUTTER OPERATOR Telemedicine [facility] - [place] [address] [address] [place] [address] Pankaj Rosenberg MD [address] [address] 06/21/2024 1:00 PM ROUND CORNER CUTTER OPERATOR Office Visit [facility] Medical Group Orthopedic & Sports Medicine - [place] [address] [place] [address] Jose Ratliff MD [address] [address] [place] [address] 03/27/2025 1:00 PM ROUND CORNER CUTTER OPERATOR Office Visit [facility] Medical Group Multispecialty Care - [facility] 3 [facility] [address] [place] [address] Bob Oneal MD [address] [facility] [address] [place] [address] documented as of this encounter Procedures Procedure [...] documented as of this encounter Care Teams Fermenter Relationship Specialty Start Date End Date Pankaj Rosenberg MD 1188 [facility] 157 [place] [address] PCP - General INTERNAL MEDICINE 06/15/21 documented as of this encounter
--- OUTSIDE RECORDS SUMMARY | 2024-05-13 11:22 | XMS_ITS | Encounter Summary ---
Author Organization [facility] Address [address] [place] [address]. [place], [place] [address] [place] [address] Care Team Providers Care Revenue Collector Name Role Phone Pankaj Rosenberg MD Primary Care Provider [phone] Encounter Details Date Type Department Care Team [...] on file Legal Sex Male 2:58 PM PROCESS SERVER Gender Identity Male 07/13/2021 5:19 AM PROCESS SERVER Sexual Orientation Straight 07/13/2021 5: 19 AM PROCESS SERVER COVID-19 Exposure Response Date Recorded In the last 10 days, have yo u been in contact with someone who was confirmed or suspected to have Coronavirus/COVID-19? No / Unsure 09/22/2022 7:20 AM CDT documented as of this encounter Plan of Treatment Upcoming Encounters Date Type Department Care Team (Late st Contact Info) Description 05/15/2024 3:30 PM PROCESS SERVER Appointment [facility] MRI ONE [place], [place] [address] Pankaj Rosenberg MD [address] [address] 05/25/2024 12:45 PM PROCESS SERVER Office Visit [facility] Physical Therapy [address] [address] Pankaj Rosenberg MD [address] [address] Maya Magaña, [place] [address] 05/30/2024 3:40 PM PROCESS SERVER Office Visit [facility] Medical [facility] Multispecialty [facility] - [place] [address] [facility] [address] [place] [address] Pankaj Rosenberg MD [address] [address] 06/20/2024 3:40 PM PROCESS SERVER Telemedicine [facility] Medical [facility] Multispecialty [facility] - [place] [address] [address] [place] [address] Pankaj Rosenberg MD [address] [address] 06/21/2024 1:00 PM PROCESS SERVER Office Visit [facility] Medical Group Orthopedic & Sports Medicine - [place] [address] [place] [address] Jose Ratliff MD [address] [address] [place] [address] 03/27/2025 1:00 PM PROCESS SERVER Office Visit [facility] Medical [facility] Multispecialty Care - [facility] [address] [facility] [address] [place] [address] Bob Oneal MD [address] [place] [address] documented as of this encounter Visit Diagnoses Not on filedocumented in this encounter Additional Health Concerns Assessment Noted Time PHQ-9 Depression Total Score: 0 08/01/19 22 2:12 PM CDT documented as of this encounter Care Teams Revenue Collector Relationship Specialty Start Date End Date Pankaj Rosenberg MD [address] [address] PCP - General INTERNAL MEDICINE 06/15/21 documented as of this encounter
--- OUTSIDE RECORDS SUMMARY | 2024-05-13 11:22 | XMS_ITS | Encounter Summary ---
Author Organization [facility] Address [address] [place] [address]. [place], [place] [address] [address] Care Team Providers Care Smooth And Burr Worker Composites Name Role Phone Pankaj Rosenberg MD Primary Care Provider [phone] Reason for Visit * Reason Onset Date Comments Follow Up Call 10/08/2022 Encounter Details Date Type Department Care Team (Late st Contact Info) Description 10/08/2022 Telephone [facility] Medical Group Multispecialty Care - [address] [place] [address] Jus Carson MD Follow Up Call Social [...] on file Legal Sex Male 2:58 PM GEOSPATIAL INFORMATION SCIENTIST Gender Identity Male 07/13/2021 5:19 AM GEOSPATIAL INFORMATION SCIENTIST Sexual Orientation Straight 07/13/2021 5 :19 AM GEOSPATIAL INFORMATION SCIENTIST COVID-19 Exposure Response Date Recorded In the [...] st Contact Info) Description 05/15/2024 3:30 PM GEOSPATIAL INFORMATION [place] [address] Pankaj Rosenberg MD [address] [place] [id number] 05/25/2024 12:45 PM GEOSPATIAL INFORMATION SCIENTIST Office Visit [facility] Physical Therapy [address] [place] [address] Pankaj Rosenberg MD [address] [place] [address] Maya Magaña, [place] [address] 05/30/2024 3:40 PM GEOSPATIAL INFORMATION SCIENTIST Office Visit [facility] Medical [facility] Multispecialty Care - [place] [address] [address] [place], [place] [address] Pankaj Rosenberg MD [address] [place] [address] 06/20/2024 3:40 PM GEOSPATIAL INFORMATION SCIENTIST Telemedicine [facility] Multispecialty Care - [place] [address] [address] [place] [address] Pankaj Rosenberg MD 1188 [facility] 157 [place] [address] 06/21/2024 1:00 PM GEOSPATIAL INFORMATION SCIENTIST Office Visit [facility] Orthopedic & Sports Medicine - [place] [address] [place] [address] Jose Ratliff MD [address] [address] [place] [address] 03/27/2025 1:00 PM GEOSPATIAL INFORMATION SCIENTIST Office Visit [facility] Multispecialty [facility] - [facility] 3 [facility] [address] [place] [address] Bob Oneal MD 3 [facility] [address] [place] [address] documented as of this encounter Visit Diagnoses Not on filedocumented in this encounter Additional Health Concerns Assessment Noted Time PHQ-9 Depression Total Score: 0 08/01/19 22 2:12 PM CDT documented as of this encounter Care Teams Smooth And Burr Worker Composites Relationship Specialty Start Date End Date Pankaj Rosenberg MD [address] [place] [address] PCP - General INTERNAL MEDICINE 06/15/21 documented as of this encounter
--- OUTSIDE RECORDS SUMMARY | 2024-05-13 11:22 | XMS_ITS | Encounter Summary ---
Author Organization [facility] Address [address] [place] [address]. [place] [address] [place] [address] Care Team Providers Care Meter/Relay Technician Name Role Phone Pankaj Rosenberg MD Primary Care Provider [phone] Encounter Details Date Type Department Care Team [...] on file Legal Sex Male 2:58 PM BORING MACHINE OPERATOR Gender Identity Male 07/13/2021 5:19 AM BORING MACHINE OPERATOR Sexual Orientation Straight 07/13/2021 5: 19 AM BORING MACHINE OPERATOR documented as of this encounter Plan of Treatment Upcoming Encounters Date Type Department Care Team (Late st Contact Info) Description 05/15/2024 3:30 PM BORING MACHINE OPERATOR Appointment [facility] [place] [address] Pankaj Rosenberg MD 1188 [facility] [address] [place] [address] 05/25/2024 12:45 PM BORING MACHINE OPERATOR Office Visit [facility] Physical Therapy [address] [place] [address] Pankaj Rosenberg MD [address] [address] Maya Magaña, [place] [address] 05/30/2024 3:40 PM BORING MACHINE OPERATOR Office Visit [facility] Multispecialty Care - [place] [address] [address] [place] [address] Pankaj Rosenberg MD [facility] [address] [address] 06/20/2024 3:40 PM BORING MACHINE OPERATOR [facility] [place] - [place] [address] [address] [place] [address] Pankaj Rosenberg MD [facility] [address] [address] 06/21/2024 1:00 PM BORING MACHINE OPERATOR Office Visit [facility] Medical Group Orthopedic & Sports Medicine - [place] [address] [place] [address] Jose Ratliff MD [address] [facility] [phone] [place] [address] 03/27/2025 1:00 PM BORING MACHINE OPERATOR Office Visit [facility] Medical Group Multispecialty Care - [facility] 3 [facility] [address] [place] [address] Bob Oneal MD 3 [facility] [address] [place] [address] documented as of this encounter Visit Diagnoses Not on filedocumented in this encounter Additional Health Concerns Assessment Noted Time PHQ-9 Depression Total Score: 0 08/01/19 22 2:12 PM CDT documented as of this encounter Care Teams Meter/Relay Technician Relationship Specialty Start Date End Date Pankaj Rosenberg MD [address] [address] PCP - General INTERNAL MEDICINE 06/15/21 documented as of this encounter
--- OUTSIDE RECORDS SUMMARY | 2024-05-13 11:22 | XMS_ITS | Encounter Summary ---
Author Organization [facility] Address [address] [place] [place] [address]. [place], [place] [address] [place] [address] Care Team Providers Care Net Programmer Analyst Name Role Phone Pankaj Rosenberg MD Primary Care Provider [phone] Encounter Details Date Type Department Care Team (Latest Contact Info) Description 09/22/2022 - 09/22/2022 11:59 PM CDT [facility] [place] [address] [place] [address] Pankaj Rosenberg MD [address] [address] Discharge Disposition: Home or Self [...] on file Legal Sex Male 2:58 PM FLOOR RUNNER Gender Identity Male 07/13/2021 5:19 AM FLOOR RUNNER Sexual Orientation Straight 07/13/2021 5: 19 AM FLOOR RUNNER COVID-19 Exposure Response Date Recorded In the last 10 days, have yo u been in contact with someone who was confirmed or suspected to have Coronavirus/COVID-19? No / Unsure 09/22/2022 7:20 AM CDT documented as of this encounter Medications at Time of Discharge Blood Glucose Monitoring Suppl (Divide VERIO REFLECT) w/Device Kit 1 Units by Does not apply route 2 (two) times daily. 09/16/2021 CPAP DEVICE, DME,Indications:KARRIE (obstructive sleep apnea) Use daily when sleeping or taking a nap. 1 Device 08/21/2021 Lancets ([employer] GroupTOUCH DELICA PLUS [id number]) [facility] USE 1 LANCET TO PRICK FINGER TWICE DAILY BEFORE TESTING 09/16/2021 TRUEplus Lancets 33G Misc 09/16/2021 Alcohol Swabs (ALCOHOL WIPES) 70 % Pads USE 1 SWAB TO CLEAN SKIN TWICE DAILY BEFORE TESTING 09/16/2021 3 amLODIPine (NORVASC) 10 MG tabletIndications:Hy pertension associated with type 2 diabetes mellitus ([facility]HS/HCC),Essential hypertension, benign Take 1 tablet (10 [...] pertension associated with type 2 diabetes mellitus ([facility] H[facility]/HCC),Essential hypertension, benign Take 1 tablet (10 [...] perlipidemia due to type 2 diabetes mellitus ([facility]),Mixed hyperlipidemia Take 1 tablet (40 mg total) by mouth nightly at bedtime. 90 tablet 1 06/15/2022 3 SITagliptin (JANUVIA) 25 mg TabIndications:Type 2 diabetes mellitus with hyperglycemia, without long-term current use of insulin ([facility]) Take 1 tablet (25 mg total) [...] st Contact Info) Description 05/15/2024 3:30 PM FLOOR RUNNER Appointment [facility] [place] [address] Pankaj Rosenberg MD [address] [place] [address] 05/25/2024 12:45 PM FLOOR RUNNER Office Visit [facility] Physical Therapy [address] [place] [address] Pankaj Rosenberg MD [address] [address] Maya Magaña, [place] [address] 05/30/2024 3:40 PM FLOOR RUNNER Office Visit [facility] Multispecialty Care - [place] [address] [address] [place] [address] Pankaj Rosenberg MD [address] [place] [address] 06/20/2024 3:40 PM FLOOR RUNNER Telemedicine [facility] - [place] [address] [address] [place] [address] [place] [address] [place] [address] 06/21/2024 1:00 PM FLOOR RUNNER Office Visit [facility] Orthopedic & Sports Medicine - [place] [address] [place] [address] Jose Ratliff MD [address] [address] [place] [address] 03/27/2025 1:00 PM FLOOR RUNNER Office Visit [facility] Multispecialty [facility] - [facility] 3 [facility] [address] [place] [address] Bob Oneal MD 3 [facility] [address] [place] [address] documented as of this encounter Visit Diagnoses Not on filedocumented in this encounter Additional Health Concerns Assessment Noted Time PHQ-9 Depression Total Score: 0 08/01/19 22 2:12 PM CDT documented as of this encounter Care Teams Net Programmer Analyst Relationship Specialty Start Date End Date Pankaj Rosenberg MD [address] [address] PCP - General INTERNAL MEDICINE 06/15/21 documented as of this encounter
--- OUTSIDE RECORDS SUMMARY | 2024-05-13 11:22 | XMS_ITS | Encounter Summary ---
Author Organization [facility] Address [address] [place] [address]. [place] [address] [place] [address] Care Team Providers Care Customer Experience Associate Name Role Phone Pankaj Rosenberg MD Primary Care Provider [phone] Encounter Details Date Type Department Care Team [...] on file Legal Sex Male 2:58 PM RESPIRATORY CARE PROGRAM DIRECTOR Gender Identity Male 07/13/2021 5:19 AM RESPIRATORY CARE PROGRAM DIRECTOR Sexual Orientation Straight 07/13/2021 5: 19 AM RESPIRATORY CARE PROGRAM DIRECTOR documented as of this encounter Plan of Treatment Upcoming Encounters Date Type Department Care Team (Late st Contact Info) Description 05/15/2024 3:30 PM RESPIRATORY CARE PROGRAM DIRECTOR Appointment [facility] [place] [address] Pankaj Rosenberg MD 1188 [facility] [address] [place] [address] 05/25/2024 12:45 PM RESPIRATORY CARE PROGRAM DIRECTOR Office Visit [facility] Physical Therapy [address] [place] [address] Pankaj Rosenberg MD [address] [address] Maya Magaña, [place] [address] 05/30/2024 3:40 PM RESPIRATORY CARE PROGRAM DIRECTOR Office Visit [facility] Multispecialty Care - [place] [address] [address] [place] [address] Pankaj Rosenberg MD [facility] [address] 06/20/2024 3:40 PM RESPIRATORY CARE PROGRAM DIRECTOR [facility]icine [facility] - [place] [address] [address] [place] [address] Pankaj Rosenberg MD [facility] [address] [address] 06/21/2024 1:00 PM RESPIRATORY CARE PROGRAM DIRECTOR Office Visit [facility] Medical Group Orth[facility] Medicine - [place] [address] [place] [address] Jose Ratliff MD 670 [facility] [id number] [place] [address] 03/27/2025 1:00 PM RESPIRATORY CARE PROGRAM DIRECTOR Office Visit [facility] Medical Group Multispecialty Care - [facility] 3 [facility] [address] [place] [address] Bob Oneal MD 3 [facility] [address] [place] [address] documented as of this encounter Visit Diagnoses Not on filedocumented in this encounter Additional Health Concerns Assessment Noted Time PHQ-9 Depression Total Score: 0 08/01/19 22 2:12 PM CDT documented as of this encounter Care Teams Customer Experience Associate Relationship Specialty Start Date End Date Pankaj Rosenberg MD [address] [address] PCP - General INTERNAL MEDICINE 06/15/21 documented as of this encounter
--- OUTSIDE RECORDS SUMMARY | 2024-05-13 11:22 | XMS_ITS | Encounter Summary ---
Author Organization [facility] Address [address] [place] [address]. [place], [place] [address] [place] [address] Care Team Providers Care Public Health Physician Name Role Phone Pankaj Rosenberg MD Primary Care Provider [phone] Encounter Details Date Type Department Care Team [...] on file Legal Sex Male 2:58 PM TRADER FIXED INCOME Gender Identity Male 07/13/2021 5:19 AM TRADER FIXED INCOME Sexual Orientation Straight 07/13/2021 5: 19 AM TRADER FIXED INCOME COVID-19 Exposure Response Date Recorded In the last 10 days, have yo u been in contact with someone who was confirmed or suspected to have Coronavirus/COVID-19? No / Unsure 09/22/2022 7:20 AM CDT documented as of this encounter Plan of Treatment Upcoming Encounters Date Type Department Care Team (Late st Contact Info) Description 05/15/2024 3:30 PM TRADER FIXED INCOME Appointment [facility] [place] [address] Pankaj Rosenberg MD 1188 [facility] [address] [place] [address] 05/25/2024 12:45 PM TRADER FIXED INCOME Office Visit [facility] Physical Therapy [facility] [address] [place] [address] Pankaj Rosenberg MD 1188 [facility] [address] [place] [address] Maya Magaña, PT One [facility] [address] 05/30/2024 3:40 PM TRADER FIXED INCOME [facility] - [place] [address] [facility] [address] [place] [address] Pankaj Rosenberg MD [address] [address] 06/20/2024 3:40 PM TRADER FIXED INCOME Telemedicine [facility] - [place] [address] [address] [place] [address] Pankaj Rosenberg MD [address] [address] 06/21/2024 1:00 PM TRADER FIXED INCOME Office Visit [facility] Medical [facility] Orthopedic & Sports Medicine - [place] [address] [place] [address] Jose Ratliff MD [address] [address] [place] [address] 03/27/2025 1:00 PM TRADER FIXED INCOME Office Visit [facility] Multispecialty Care - [facility] 3 [facility] [address] [place] [address] Bob Oneal MD 3 [facility] [address] [place] [address] documented as of this encounter Visit Diagnoses Not on filedocumented in this encounter Additional Health Concerns Assessment Noted Time PHQ-9 Depression Total Score: 0 08/01/19 22 2:12 PM CDT documented as of this encounter Care Teams Public Health Physician Relationship Specialty Start Date End Date Pankaj Rosenberg MD [facility] [address] [place] [address] PCP - General INTERNAL MEDICINE 06/15/21 documented as of this encounter
--- OUTSIDE RECORDS SUMMARY | 2024-05-13 11:22 | XMS_ITS | Encounter Summary ---
Author Organization [facility] Address [address] [place] [address]. [place] [address] [place] [address] Care Team Providers Care Blunger Machine Operator Name Role Phone Pankaj Rosenberg MD Primary Care Provider [phone] Encounter Details Date Type Department Care Team [...] on file Legal Sex Male 2:58 PM CAMERA MECHANIC Gender Identity Male 07/13/2021 5:19 AM CAMERA MECHANIC Sexual Orientation Straight 07/13/2021 5: 19 AM CAMERA MECHANIC documented as of this encounter Plan of Treatment Upcoming Encounters Date Type Department Care Team (Late st Contact Info) Description 05/15/2024 3:30 PM CAMERA MECHANIC Appointment [facility] [place] [address] Pankaj Rosenberg MD 1188 [facility] [address] [place] [address] 05/25/2024 12:45 PM CAMERA MECHANIC Office Visit [facility] Physical Therapy [address] [place] [address] Pankaj Rosenberg MD [address] [address] Maya Magaña, [place] [address] 05/30/2024 3:40 PM CAMERA MECHANIC Office Visit [facility] Multispecialty Care - [place] [address] [address] [place] [address] Pankaj Rosenberg MD Critical access hospital[address] [address] 06/20/2024 3:40 PM CAMERA MECHANIC [facility]medicine [facility] - [place] [address] [address] [place] [address] Pankaj Rosenberg MD Critical access hospital8 [address] [address] 06/21/2024 1:00 PM CAMERA MECHANIC Office Visit [facility] Medical Group Orthopedic & Sports Medicine - [place] [address] [place] [address] Jose Ratliff MD [address] [facility] [address] [place] [address] 03/27/2025 1:00 PM CAMERA MECHANIC Office Visit [facility] Medical Group Multispecialty Care - [facility] 3 [facility] [address] [place] [address] Bob Oneal MD 3 [facility] [address] [place] [address] documented as of this encounter Visit Diagnoses Not on filedocumented in this encounter Additional Health Concerns Assessment Noted Time PHQ-9 Depression Total Score: 0 08/01/19 22 2:12 PM CDT documented as of this encounter Care Teams Blunger Machine Operator Relationship Specialty Start Date End Date Pankaj Rosenberg MD [address] [address] PCP - General INTERNAL MEDICINE 06/15/21 documented as of this encounter
--- OUTSIDE RECORDS SUMMARY | 2024-05-13 11:22 | XMS_ITS | Encounter Summary ---
Author Organization [facility] Address [address] [place] [address]. [place], [place] [address] [place] [address] Care Team Providers Care Cyber Security Systems Engineer Name Role Phone Pankaj Rosenberg MD Primary Care Provider [phone] Encounter Details Date Type Department Care Team (Latest Contact Info) Description 07/01/2022 Adpeps Message Enc [facility] Medical Group Multispecialty Care - [address] [place] [address] [employer] [facility] Provider Reschedule Tuesday, July 02 lab [...] on file Legal Sex Male 2:58 PM PARTY HOST/HOSTESS Gender Identity Male 07/13/2021 5:19 AM PARTY HOST/HOSTESS Sexual Orientation Straight 07/13/2021 5: 19 AM PARTY HOST/HOSTESS COVID-19 Exposure Response Date Recorded In the last 10 days, have yo u been in contact with someone who was confirmed or suspected to have Coronavirus/COVID-19? No / Unsure 06/15/2022 1:57 PM PARTY HOST/HOSTESS documented as of this encounter Plan of Treatment Upcoming Encounters Date Type Department Care Team (Late st Contact Info) Description 05/15/2024 3:30 PM PARTY HOST/HOSTESS Appointment [facility] [place] [address] Pankaj Rosenberg MD [facility]8 [address] [address] 05/25/2024 12:45 PM PARTY HOST/HOSTESS Office Visit [facility] Physical Therapy [address] [place] [address] Pankaj Rosenberg MD [facility]8 [address] [address] Maya Magaña, [place] [address] 05/30/2024 3:40 PM PARTY HOST/HOSTESS Office Visit [facility] Medical [facility] Multispecialty Care - [place] [address] [address] [place] [address] Pankaj Rosenberg MD [facility] [address] 06/20/2024 3:40 PM PARTY HOST/HOSTESS Telemedicine [facility] Medical [facility] - [place] [address] [address] [place] [address] Pankaj Rosenberg MD [facility] [address] [address] 06/21/2024 1:00 PM PARTY HOST/HOSTESS Office Visit [facility] Medical Group Orthopedic & Sports Medicine - [place] [address] [place] [address] Jose Ratliff MD [address] [address] [place] [address] 03/27/2025 1:00 PM PARTY HOST/HOSTESS Office Visit [facility] Medical Group Multispecialty Care - [facility] 3 [facility] [address] [place] [address] Bob Oneal MD [address] [facility] [address] [place] [address] documented as of this encounter Visit Diagnoses Not on filedocumented in this encounter Additional Health Concerns Assessment Noted Time PHQ-9 Depression Total Score: 0 08/01/19 22 2:12 PM CDT documented as of this encounter Care Teams Cyber Security Systems Engineer Relationship Specialty Start Date End Date Pankaj Rosenberg MD [address] [address] PCP - General INTERNAL MEDICINE 06/15/21 documented as of this encounter
--- OUTSIDE RECORDS SUMMARY | 2024-05-13 11:22 | XMS_ITS | Encounter Summary ---
Author Organization [facility] - [facility] Address [address] [place] [address]. [place], [place] [address] [place] [address] Care Team Providers Care Pit Hoist Operator Name Role Phone Pankaj Rosenberg MD Primary Care Provider [phone] Reason for Visit * Reason Comments Allied Health Visit Lab draw Encounter Details Date Type Department Care Team (Latest Contact Info) Description 09/22/2022 7:30 AM CDT Allied Health/Nurse Visit [facility] Medical Group Multispecialty Care - [place] [address] [address] [place] [address] Pankaj Rosenberg MD [address] [place] [phone] Allied Health Visit (Lab draw) Social History [...] on file Legal Sex Male 2:58 PM TECHNICIAN Gender Identity Male 07/13/2021 5:19 AM TECHNICIAN Sexual Orientation Straight 07/13/2021 5: 19 AM TECHNICIAN COVID-19 Exposure Response Date Recorded In [...] st Contact Info) Description 05/15/2024 3:[address] [facility] [place] [address] Pankaj Rosenberg MD [address] [place] [address] 05/25/2024 12:45 PM TECHNICIAN Office Visit [facility] Physical Therapy [address] [place] [address] Pankaj Rosenberg MD [address] [place] [address] Maya Magaña, [place] [address] 05/30/2024 3:40 PM TECHNICIAN Office Visit [facility] - [place] [address] [place] [address] Pankaj Rosenberg MD [address] [place] [address] 06/20/2024 3:40 PM TECHNICIAN Telemedicine [facility] - [place] [address] [address] [place] [address] Pankaj Rosenberg MD [address] [place] [address] 06/21/2024 1:00 PM TECHNICIAN Office Visit [facility] Orthopedic & Sports Medicine - [place] [address] [place] [address] Jose Ratliff MD [address] [facility] [address] [place] [address] 03/27/2025 1:00 PM TECHNICIAN Office Visit [facility] Multispecialty Care - [facility] [address] [facility] [address] [place] [address] Bob Oneal MD [address] [facility] [address] [place] [address] documented as of this encounter Procedures Procedure [...] - 669.6 NG/DL 09/23/2022 2:19 PM CDT [facility] Comment: ASSAY PERFORMED BY CHEMILUMINESCENCE METHODOLOGY USING SIEMENS food.deAUR XPT REAGENT. PATIENT RESULTS DETERMINED BY ASSAYS USING DIFFERENT MANUFACTURERS FOR METHODS MAY NOT BE COMPARABLE. 09/22/2022 7:42 AM CDT Pankaj Rosenberg MD LABORATORY Final Result [facility] [address] [place] [id number], * (ABNORMAL) CBC W/DIFF AUTOMATED (09/22/2022 7:42 AM CDT) Pathologist [facility] WBC 8.52 4.00 - 10.80 x10'3/uL 09/22/2022 2:34 PM CDT [facility] RBC 4.97 4.50 - 6.10 x10'6/uL 09/22/2022 2:34 PM CDT [facility] HGB 12.9(L) 13.0 - 18.0 G/DL 09/22/2022 2:34 PM CDT [facility] HCT 40.8 37.0 - 52.0 % 09/22/2022 2:34 PM CDT [facility] MCV 82.1 78.0 - 100.0 FL 09/22/2022 2:34 PM CDT [facility] MCH 26.0(L) 27.0 - 31.0 PG 09/22/2022 2:34 PM CDT [facility] MCHC 31.6(L) 33.0 - 36.0 G/DL 09/22/2022 2:34 PM CDT [facility] RDW 13.4 11.5 - 14.5 % 09/22/2022 2:34 PM CDT [facility] PLT 346 150 - 350 x10'3/uL 09/22/2022 2:34 PM CDT [facility] MPV 10.6(H) 7.4 - 10.4 FL 09/22/2022 2:34 PM CDT [facility] DIFFERENTIAL TYPE AUTOMATED DIFFERENTIAL 09/22/2022 2:35 PM CDT [facility] NEUTROPHIL[facility] % 63.1 % 09/22/2022 2:35 PM CDT [facility] LYMPHOCYTES % 27.6 % 09/22/2022 2:35 PM CDT [facility] MONOCYTES % 6.6 % 09/22/2022 2:35 PM CDT [facility] EOSINOPHILS % 1.6 % 09/22/2022 2:35 PM CDT [facility] BASOPHILS % 0.4 % 09/22/2022 2:35 PM CDT [facility] IMMATURE GRANS % 0.7 % 09/22/2022 2:35 PM CDT [facility] ABS. NEUTROPHILS 5.38 1.60 - 8.30 x10'3/uL 09/22/2022 2:35 PM CDT [facility] ABS. LYMPHOCYTES 2.35 0.80 - 4.70 x10'3/uL 09/22/2022 2:35 PM CDT [facility] ABS. MONOCYTES 0.56 0.00 - 1.50 x10'3/uL 09/22/2022 2:35 PM CDT [facility] ABS. EOSINOPHILS 0.14 0.00 - 0.40 x10'3/uL 09/22/2022 2:35 PM CDT [facility] ABS. BASOPHILS 0.03 0.00 - 0.20 x10'3/uL 09/22/2022 2:35 PM CDT [facility] ABS. IMMATURE GRANULOCYTES 0.06(H) 0.00 - 0.03 x10'3/uL 09/22/2022 2:35 PM CDT -[facility] 09/22/2022 7:42 AM CDT Pankaj Rosenberg MD LABORATORY Final Result [facility] [place] [address] [place] [address], * (ABNORMAL) COMPREHENSIVE METABOLIC PANEL (09/22/2022 7:42 AM CDT) SODIUM S/P/B 138 136 - 145 MMOL/L 09/22/2022 3:54 PM CDT -[facility] POTASSIUM S/P/B 4.4 3.5 - 5.1 MMOL/L 09/22/2022 3:54 PM CDT -[facility] CHLORIDE S/P/B 103 98 - 107 MMOL/L 09/22/2022 3:54 PM CDT [facility] CO2 24.1 21 - 32 MMOL/L 09/22/2022 3:54 PM CDT [facility] GLUCOSE 167(H) 70 - 99 MG/DL 09/22/2022 3:54 PM CDT [facility] BUN 14 7 - 18 MG/DL 09/22/2022 3:54 PM CDT -[facility] CREATININE S/P/B 0.95 0.70 - 1.30 MG/DL 09/22/2022 3:54 PM CDT [facility] CALCIUM S/P/B 9.0 8.4 - 10.5 MG/DL 09/22/2022 3:54 PM CDT [facility] BILIRUBIN TOTAL S/P/B 0.3 0.2 - 1.0 MG/DL 09/22/2022 3:54 PM CDT [facility] ALKALINE PHOSPHATASE S/P/B 136(H) 45 - 115 U/L 09/22/2022 3:54 PM CDT [facility] AST 18 15 - 37 U/L 09/22/2022 3:54 PM T [facility] ALT 48 16 - 63 U/L 09/22/2022 3:54 PM T [facility] TOTAL PROTEIN S/P/B 7.3 6.4 - 8.2 G/DL 09/22/2022 3:54 PM T [facility] ALBUMIN S/P/B 3.6 3.4 - 5.0 G/DL 09/22/2022 3:54 PM T [facility] ANION GAP 10.9 5 - 15 MMOL/L 09/22/2022 3:54 PM T [facility] Comment:REFERENCE RANGE NOT ESTABLISHED OSMOLALITY (CALC) 290 MOSM/KG 023 3:54 PM T [facility] Comment:REFERENCE RANGE NOT ESTABLISHED GFR ESTIMATE >90 >90 ML/MIN/1. 73 M2 09/22/2022 3:54 PM [facility] GFR NOTES GFR REFERENCE S: 09/22/2022 3:54 PM [facility] Comment: THE ESTIMATED GFR IS CALCULATED [...] Rosenberg MD LABORATORY Final Result [facility] [place] [address] [place] [address], [place] [phone] * (ABNORMAL) LIPID PANEL (09/22/2022 7:42 AM CDT) CHOLESTEROL 170 <200 MG/DL 09/22/2022 3:54 PM CDT [facility] TRIGLYCERIDES 245(H) <150 MG/DL 09/22/2022 3:54 PM CDT [facility] HDL 30(L) >40 MG/DL 09/22/2022 3:54 PM CDT [facility] LDL-C 91 <100 MG/DL 09/22/2022 3:54 PM CDT [facility] VLDL CALCULATION 49(H) 5 - 28 MG/DL 09/22/2022 3:54 PM CDT [facility] CHOL/HDL RATIO 5.7(H) 0.0 - 4.0 09/22/2022 3:54 PM CDT [facility] LDL/HDL 3.0(H) 0.41 - 2.13 09/22/2022 3:54 PM CDT [facility] NON HDL CHOLESTEROL 140(H) <140 MG/DL 09/22/2022 3:54 PM CDT [facility] 09/22/2022 7:42 AM CDT us Pankaj Rosenberg MD LABORATORY Final Result [facility] [place] [address] [place] [address], [place] [phone] * TSH W/REFLEX (09/22/2022 7:42 AM CDT) TSH 0.990 0.358 - 3.740 uIU/ML 09/22/2022 3:54 PM CDT [facility] 09/22/2022 7:42 AM CDT Pankaj Rosenberg MD LABORATORY Final Result Performing Organization Address [facility] de Phone Number [facility] [address] [place] [address], [place] [phone] * (ABNORMAL) HEMOGLOBIN, GLYCOSYLATED (09/22/2022 7:42 AM CDT) [facility] HGB A1C 6.6(H) 4.5 - 6.2 % 09/22/2022 3:53 PM CDT [facility] ESTIMATED AVG GLUCOSE 143(H) 74 - 106 MG/DL 09/22/2022 3:53 PM CDT [facility] 09/22/2022 7:42 AM CDT Pankaj Rosenberg MD LABORATORY Final Result Performing Organization Address [facility] de Phone Number [address] [address], * (ABNORMAL) VITAMIN D, 25 OH (09/22/2022 7:42 AM CDT) [facility] VITAMIN D 25 HYDROXY TOTAL S/P/B 13.4(L) 30 - 100 NG/ML 09/22/2022 3:54 PM CDT [facility] Comment: ? DEFICIENT ??<20 ?INSUFFICIENT 20-30 ?SUFFICIENT 30-100 09/22/2022 7:42 AM CDT Pankaj Rosenberg MD LABORATORY Final Result [facility] [address] [facility] [place] [place] [address], [place] [phone] * HEPATITIS C ANTIBODY ([facility] ONLY) (09/22/2022 7:42 AM CDT) HEPATITIS C AB NON-REACTI VE NON-REACT RACHELLE 09/22/2022 11:59 PM CDT [facility] Comment: ANTIBODIES TO HCV NOT DETECTED. DOES NOT EXCLUDE THE POSSIBILITY OF EXPOSURE TO HCV. 09/22/2022 7:42 AM CDT Pankaj Rosenberg MD LABORATORY Final Result Performing Organization Address City/[facility]/ZIP Co de Phone Number [facility] [address] [place] [address], [place] [phone] documented in this encounter Visit Diagnoses Diagnosis Annual physical exam- Primary Routine general medical examination at a health care facility Low testosterone Other testicular hypofunction documented in this encounter Additional Health Concerns Assessment Noted Time PHQ-9 Depression Total Score: 0 08/01/19 22 2:12 PM CDT documented as of this encounter Care Teams Pit Hoist Operator Relationship Specialty Start Date End Date Pankaj Rosenberg MD [address] [facility] [address] [place] [address] PCP - General INTERNAL MEDICINE 06/15/21 documented as of this encounter
--- OUTSIDE RECORDS SUMMARY | 2024-05-13 11:22 | XMS_ITS | Encounter Summary ---
Author Organization [facility] Address [address] [place] [address]. [place], [place] [address] [place] [address] Care Team Providers Care Clinical Systems Analyst Name Role Phone Pankaj Rosenberg MD Primary Care Provider [phone] Reason for Visit * Reason Onset Date Comments Appointment Reminder 08/04/2022 Encounter Details Date Type Department Care Team (Late st Contact Info) Description 08/04/2022 Telephone [facility] Multispecialty Care - [place] [address] [address] [place] [address] Pankaj Rosenberg MD [address] [place] [address] 157 [place], [place] [phone] Appointment Reminder Social History Tobacco Use Types [...] on file Legal Sex Male 2:58 PM SCRIBING MACHINE OPERATOR Gender Identity Male 07/13/2021 5:19 AM SCRIBING MACHINE OPERATOR Sexual Orientation Straight 07/13/2021 5: 19 AM SCRIBING MACHINE OPERATOR documented as of this encounter Progress [...] abd pain on 07/25/22. Call went to voicenmil.Requested return call back from pt. * Sanaz Cherry MA - 08/04/2022 1:06 PM CDT ----- Message from Pankaj Rosenberg MD sent at 08/03/2022 8:55 AM CDT ----- Please check if patient is discharged yet thanks. documented in this encounter Plan of Treatment Upcoming Encounters Date Type Department Care Team (Late st Contact Info) Description 05/15/2024 3:30 PM SCRIBING MACHINE OPERATOR Appointment [facility] [place] [address] Pankaj Rosenberg MD [address] [place] [address] [phone] 05/25/2024 12:45 PM SCRIBING MACHINE OPERATOR [facility] [address] [place] [address] [phone] Pankaj Rosenberg MD [address] [place] [address] Maya Magaña, [place] [address] 05/30/2024 3:40 PM SCRIBING MACHINE OPERATOR Office Visit [facility] Multispecialty Care - [place] [address] [address] [place] [address] Pankaj Rosenberg MD [address] [address] 06/20/2024 3:40 PM SCRIBING MACHINE OPERATOR [facility] [place] [address] [address] [place] [address] [place] [address] [place] [address] 06/21/2024 1:00 PM SCRIBING MACHINE OPERATOR Office Visit [facility] - [place] [address] [place] [address] Jose Ratliff MD [address] [address] [place] [address] 03/27/2025 1:00 PM SCRIBING MACHINE OPERATOR Office Visit [facility] Multispecialty Care - [facility] 3 [facility], [address] [place] [address] Bob Oneal MD 3 [facility] [address] [place] [address] documented as of this encounter Visit Diagnoses Not on filedocumented in this encounter Additional Health Concerns Assessment Noted Time PHQ-9 Depression Total Score: 0 08/01/19 22 2:12 PM CDT documented as of this encounter Care Teams Clinical Systems Analyst Relationship Specialty Start Date End Date Pankaj Rosenberg MD [address] [place] [address] PCP - General INTERNAL MEDICINE 06/15/21 documented as of this encounter
--- OUTSIDE RECORDS SUMMARY | 2024-05-13 11:22 | XMS_ITS | Encounter Summary ---
Author Organization [facility] Address [address] [place] [address]. [place], [place] [address] [place] [address] Care Team Providers Care Account Executive Metalworking Name Role Phone Pankaj Rosenberg MD Primary Care Provider [phone] Encounter Details Date Type Department Care Team (Latest Contact Info) Description 09/22/2022 Hospital Encounter [facility] [address] [address] [address] [address] [facility] [place] [address] Pankaj Rosenberg MD 1188 [facility] 157 [place] [address] Discharge Disposition: Home or Self [...] on file Legal Sex Male 2:58 PM FLASK MAKER Gender Identity Male 07/13/2021 5:19 AM FLASK MAKER Sexual Orientation Straight 07/13/2021 5: 19 AM FLASK MAKER documented as of this encounter Medications at Time of Discharge Blood Glucose Monitoring Suppl (ONETOUCH VERIO REFLECT) w/Device Kit 1 Units by Does not apply route 2 (two) times daily. 09/16/2021 CPAP DEVICE, DME,Indications:KARRIE (obstructive sleep apnea) Use daily when sleeping or taking a nap. 1 Device 08/21/2021 Lancets (ONETOUCH DELICA PLUS [id number]) [facility] USE 1 LANCET TO PRICK FINGER TWICE DAILY BEFORE TESTING 09/16/2021 TRUEplus Lancets 33G [facility] 09/16/2021 Alcohol Swabs (ALCOHOL WIPES) 70 % Pads USE 1 SWAB TO CLEAN SKIN TWICE DAILY BEFORE TESTING 09/16/2021 3 amLODIPine (NORVASC) 10 MG tabletIndications:Hy pertension associated with type 2 diabetes mellitus ([facility]),Essential hypertension, benign Take 1 tablet (10 mg [...] pertension associated with type 2 diabetes mellitus ([facility]),Essential hypertension, benign Take 1 tablet (10 mg [...] perlipidemia due to type 2 diabetes mellitus ([facility]),Mixed hyperlipidemia Take 1 tablet (40 mg total) by mouth nightly at bedtime. 90 tablet 1 06/15/2022 3 SITagliptin (JANUVIA) 25 mg TabIndications:Type 2 diabetes mellitus with hyperglycemia, without long-term current use of insulin ([facility]) Take 1 tablet (25 mg [...] st Contact Info) Description 05/15/2024 3:30 PM FLASK MAKER Appointment [facility] [place] [address] Pankaj Rosenberg MD [address] [place] [address] 05/25/2024 12:45 PM FLASK MAKER Office Visit [facility] Physical Therapy [address] [place] [address] Pankaj Rosenberg MD [facility] [address] [address] Maya Magaña, [place] [address] 05/30/2024 3:40 PM FLASK MAKER Office Visit [facility] Multispecialty Care - [place] [address] [address] [place] [address] [place] [address] [place] [address] 06/20/2024 3:40 PM FLASK MAKER Telemedicine [facility] Multispecialty [facility] - [place] [address] [address] [place] [address] Pankaj Rosenberg MD [facility] [address] [address] 06/21/2024 1:00 PM FLASK MAKER Office Visit [facility] - [place] [address] [place] [address] Jose Ratliff MD 670 [facility] [address] [place] [address] 03/27/2025 1:00 PM FLASK MAKER Office Visit [facility] Multispecialty Care - [facility] 3 [facility], [address] [place] [address] Bob Oneal MD 3 [facility] [address] [place] [address] documented as of this encounter Visit Diagnoses Not on filedocumented in this encounter Additional Health Concerns Assessment Noted Time PHQ-9 Depression Total Score: 0 08/01/19 2:12 PM CDT documented as of this encounter Care Teams Account Executive Metalworking Relationship Specialty Start Date End Date Pankaj Rosenberg MD [address] [place] [address] PCP - General INTERNAL MEDICINE 06/15/21 documented as of this encounter
--- OUTSIDE RECORDS SUMMARY | 2024-05-13 11:22 | XMS_ITS | Encounter Summary ---
Author Organization [facility] Address [address] [place] [address]. [place], [place] [address] [place] [address] Care Team Providers Care Irrigation System Installer Name Role Phone Pankaj Rosenberg MD Primary Care Provider [phone] Reason for Visit * Reason Onset Date Comments Follow Up Call 07/21/2022 Encounter Details Date Type Department Care Team (Late st Contact Info) Description 07/21/2022 Telephone [facility] Medical Group Multispecialty Care - [place] [address] [address] [place], [place] [address] Pankaj Rosenberg MD [address] [place] [address] 157 [place] [address] Follow Up Call Social History [...] on file Legal Sex Male 2:58 PM SHOER Gender Identity Male 07/13/2021 5:19 AM SHOER Sexual Orientation Straight 07/13/2021 5: 19 AM SHOER documented as of this encounter Progress Notes * Pankaj Rosenberg MD - 07/21/2022 11:21 AM CST I am notified patient recent surgery was done on outpatient bases for his gallbladder polyp and patient will be following up his surgeon post op. R documented in this encounter Plan of Treatment Upcoming Encounters Date Type Department Care Team (Late st Contact Info) Description 05/15/2024 3:30 PM SHOER Appointment [facility] [place] [address] Pankaj Rosenberg MD [address] [place] [address] 05/25/2024 12:45 PM SHOER Office Visit [facility] Physical Therapy [address] [place] [address] Pankaj Rosenberg MD [address] [place] [address] Maya Magaña, [place] [address] 05/30/2024 3:40 PM SHOER Office Visit [facility] Medical [facility] Multispecialty Care - [address] [address] Pankaj Rosenberg MD [facility] [address] 06/20/2024 3:40 PM SHOER Telemedicine [facility] Multispecialty Care - [place] [address] [address] [place] [address] Pankaj Rosenberg MD [facility] [address] [address] 06/21/2024 1:00 PM SHOER Office Visit [facility] Medical Group Orthopedic & Sports Medicine - [address] [place] [address] Jose Ratliff MD [address] [address] [place] [address] 03/27/2025 1:00 PM SHOER Office Visit [facility] Medical Group Multispecialty Care - [facility] [address] [facility] [address] [place] [address] Bob Oneal MD [address] [facility] [address] [place] [address] documented as of this encounter Visit Diagnoses Not on filedocumented in this encounter Additional Health Concerns Assessment Noted Time PHQ-9 Depression Total Score: 0 08/01/19 22 2:12 PM CDT documented as of this encounter Care Teams Irrigation System Installer Relationship Specialty Start Date End Date Pankaj Rosenberg MD [address] [address] PCP - General INTERNAL MEDICINE 06/15/21 documented as of this encounter
--- OUTSIDE RECORDS SUMMARY | 2024-05-13 11:22 | XMS_ITS | Encounter Summary ---
Author Organization [facility] Address [address] [place] [address]. [place], [place] [address] [place] [address] Care Team Providers Care Natural Resources Faculty Member Name Role Phone Pankaj Rosenberg MD Primary Care Provider Reason for Visit * Reason Onset Date Comments Follow Up Call 07/21/2022 Encounter Details Date Type Department Care Team (Late st Contact Info) Description 07/21/[address] [facility] Medical Group Multispecialty Care - [place] [address] [address] [place], [place] [address] Pankaj Rosenberg MD [address] [place] [address] 157 [place] [address] Follow Up Call Social History [...] file Legal Sex Male 2:58 PM AIR DRIER MACHINE OPERATOR Gender Identity Male 07/13/2021 5:19 AM AIR DRIER MACHINE OPERATOR Sexual Orientation Straight 07/13/2021 5: 19 AM AIR DRIER MACHINE OPERATOR documented as of this encounter [...] our office if any issues.Pt verbalized understanding DRIER MACHINE OPERATOR * Rocio Marie MA - 07/21/2022 10:05 AM CST Called and lm on vm to call our office DRIER MACHINE OPERATOR * Pankaj Rosenberg MD - 07/21/2022 7:56 AM CST Patient currently on oxygen at an outside hospital for gallbladder polyp surgery. Please call and find out if patient is discharged. Schedule for TCM as appropriate. Thank you. DRIER MACHINE OPERATOR documented in this encounter Plan of Treatment Upcoming Encounters Date Type Department Care Team (Late st Contact Info) Description 05/15/2024 3:30 PM AIR DRIER MACHINE OPERATOR Appointment [facility] [place] [address] Pankaj Rosenberg MD [address] [place] [address] 05/25/2024 12:45 PM AIR DRIER MACHINE OPERATOR Office [facility] Physical Therapy [address] [place] [address] Pankaj Rosenberg MD [facility] [address] [address] Maya Magaña, [place] [address] 05/30/2024 3:40 PM AIR DRIER MACHINE OPERATOR Office Visit [facility] Multispecialty Care - [place] [address] [address] [place] [address] Pankaj Rosenberg MD [address] [address] 06/20/2024 3:40 PM AIR DRIER MACHINE OPERATOR [facility] Emergency Department - [place] [address] [address] [place] [address] Pankaj Rosenberg MD [address] [address] 06/21/2024 1:00 PM AIR DRIER MACHINE OPERATOR Office Visit [facility] Orthopedic & Sports Medicine - [place] [address] [place] [address] Jose Ratliff MD [address] [address] [place] [address] 03/27/2025 1:00 PM AIR DRIER MACHINE OPERATOR Office Visit [facility] Multispecialty [facility] Emergency Department - [facility] 3 [facility], [address] [place] [address] Bob Oneal MD 3 [facility] [address] [place] [address] documented as of this encounter Visit Diagnoses Not on filedocumented in this encounter Additional Health Concerns Assessment Noted Time PHQ-9 Depression Total Score: 0 08/01/19 2:12 PM CDT documented as of this encounter Care Teams Natural Resources Faculty Member Relationship Specialty Start Date End Date Pankaj Rosenberg MD [address] [place] [address] PCP - General INTERNAL MEDICINE 06/15/21 documented as of this encounter
--- OUTSIDE RECORDS SUMMARY | 2024-05-13 11:22 | XMS_ITS | Encounter Summary ---
Author Organization [facility] Address [address] [place] [address]. [place], [place] [address] [place] [address] Care Team Providers Care Psychological Stress Evaluator Name Role Phone Pankaj Rosenberg MD Primary Care Provider Reason for Visit * Reason Onset Date Comments Follow Up Call 07/13/2022 Encounter Details Date Type Department Care Team (Late st Contact Info) Description 07/13/2022 Telephone [facility] Medical Group Multispecialty Care - [place] [address] [address] [place], [place] [address] Pankaj Rosenberg MD [address] [place] [address] 157 [place] [address] Follow Up Call Social History [...] file Legal Sex Male 2:58 PM PATIENT CARRIER Gender Identity Male 07/13/2021 5:19 AM PATIENT CARRIER Sexual Orientation Straight 07/13/2021 5: 19 AM PATIENT CARRIER COVID-19 Exposure Response Date Recorded In the last 10 days, have yo u been in contact with someone who was confirmed or suspected to have Coronavirus/COVID-19? No / Unsure 06/15/2022 1:57 PM PATIENT CARRIER documented as of this encounter Progress Notes * Doc Ribear - 07/14/2022 9:52 AM CST Called patient on 07/13/22 and he was currently in surgery. I LVM for him to schedule a TCM/follow up appt upon discharge. ENT CARRIER * Pankaj Rosenberg MD - 07/13/2022 2:04 PM CST Patient was recently discharged from the hospital for gallbladder polyp surgery. Please call and schedule for a hospital follow-up. Thank you. ENT CARRIER documented in this encounter Plan of Treatment Upcoming Encounters Date Type Department Care Team (Late st Contact Info) Description 05/15/2024 3:30 PM PATIENT CARRIER Appointment [facility] [place] [address] Pankaj Rosenberg MD [address] [place] [address] 05/25/2024 12:45 PM PATIENT CARRIER Office Visit [facility] Physical Therapy [address] [place] [address] Pankaj Rosenberg MD [facility] [address] [address] Maya Magaña, [place] [address] 05/30/2024 3:40 PM PATIENT CARRIER Office Visit [facility] Medical Group Multispecialty Care - [place] [address] [address] [place] [address] Pankaj Rosenberg MD [address] [place] [address] 06/20/2024 3:40 PM PATIENT CARRIER Telemedicine [facility] Multispecialty Care - [place] [address] [address] [place] [address] Pankaj Rosenberg MD 1188 [facility] 157 [place] [address] 06/21/2024 1:00 PM PATIENT CARRIER Office Visit [facility] Orthopedic & Sports Medicine - [place] [address] [place] [address] Jose Ratliff MD [address] [address] [place] [address] 03/27/2025 1:00 PM PATIENT CARRIER [facility] 3 [facility] [address] [place] [address] Bob Oneal MD 3 [facility] [address] [place] [address] documented as of this encounter Visit Diagnoses Not on filedocumented in this encounter Additional Health Concerns Assessment Noted Time PHQ-9 Depression Total Score: 0 08/01/19 22 2:12 PM CDT documented as of this encounter Care Teams Psychological Stress Evaluator Relationship Specialty Start Date End Date Pankaj Rosenberg MD 1188 [facility] 157 [place] [address] PCP - General INTERNAL MEDICINE 06/15/21 documented as of this encounter
--- OUTSIDE RECORDS SUMMARY | 2024-05-13 11:22 | XMS_ITS | Encounter Summary ---
Author Organization [facility] Address [address] [place] [address]. [place], [place] [address] [place] [address] Care Team Providers Care Supervisor Mail Carriers Name Role Phone Pankaj Rosenberg MD Primary Care Provider [phone] Reason for Visit * Reason Onset Date Comments Error 07/01/2022 Encounter Details Date Type Department Care Team (Late st Contact Info) Description 07/01/2022 Telephone [facility] Medical Group Multispecialty Care - [place] [address] [address] [place] [address] Pankaj Rosenberg MD [address] [place] [address] 157 [place], [place] [id number] Error Social History Tobacco Use Types Packs/Day [...] on file Legal Sex Male 2:58 PM FLOAT TENDER Gender Identity Male 07/13/2021 5:19 AM FLOAT TENDER Sexual Orientation Straight 07/13/2021 5: 19 AM FLOAT TENDER COVID-19 Exposure Response Date Recorded In the last 10 days, have yo u been in contact with someone who was confirmed or suspected to have Coronavirus/COVID-19? No / Unsure 06/15/2022 1:57 PM FLOAT TENDER documented as of this encounter Plan of Treatment Upcoming Encounters Date Type Department Care Team (Late st Contact Info) Description 05/15/2024 3:30 PM FLOAT TENDER Appointment [facility] [place] [address] Pankaj Rosenberg MD [address] [address] 05/25/2024 12:45 PM FLOAT TENDER Office Visit [facility] Physical Therapy [address] [place] [address] Pankaj Rosenberg MD [facility] [address] [address] Maya Magaña, [place] [address] 05/30/2024 3:40 PM FLOAT TENDER Office Visit [facility] Medical [facility] Multispecialty Care - [address] [address] Pankaj Rosenberg MD [address] [address] 06/20/2024 3:40 PM FLOAT TENDER Telemedicine [facility] Multispecialty Care - [place] [address] [address] [place] [address] Pankaj Rosenberg MD [address] [address] 06/21/2024 1:00 PM FLOAT TENDER Office Visit [facility] Medical Group Orthopedic & Sports Medicine - [place] [address] [place], [place] [address] Jose Ratliff MD [address] [place] [address] 03/27/2025 1:00 PM FLOAT TENDER Office Visit [facility] Medical Group Multispecialty Care - [facility] 3 [facility] [address] [place] [address] Bob Oneal MD 3 [facility] [address] [place] [address] documented as of this encounter Visit Diagnoses Not on filedocumented in this encounter Additional Health Concerns Assessment Noted Time PHQ-9 Depression Total Score: 0 08/01/19 22 2:12 PM CDT documented as of this encounter Care Teams Supervisor Mail Carriers Relationship Specialty Start Date End Date Pankaj Rosenberg MD 1188 [facility] [address] [place] [address] PCP - General INTERNAL MEDICINE 06/15/21 documented as of this encounter
--- OUTSIDE RECORDS SUMMARY | 2024-05-13 11:23 | XMS_ITS | Encounter Summary ---
Author Organization [facility] Address [address] [place] [address]. [place], [place] [address] [place] [address] Care Team Providers Care Organizational Development Director Name Role Phone Pankaj Rosenberg MD Primary Care Provider [phone] Encounter Details Date Type Department Care Team (Late st Contact Info) Description 04/28/2022 Orders Only [facility] Medical Group Multispecialty Care - [address] [place], [place] [address] Isela Daily MA Social History Tobacco Use [...] file Legal Sex Male 2:58 PM ELECTRICAL PROJECT ENGINEER Gender Identity Male 07/13/2021 5:19 AM ELECTRICAL PROJECT ENGINEER Sexual Orientation Straight 07/13/2021 5: 19 AM ELECTRICAL PROJECT ENGINEER COVID-19 Exposure Response Date Recorded In the last 10 days, have yo u been in contact with someone who was confirmed or suspected to have Coronavirus/COVID-19? No / Unsure 04/29/2022 10:26 AM ELECTRICAL PROJECT ENGINEER documented as of this encounter Plan of Treatment Upcoming Encounters Date Type Department Care Team (Late st Contact Info) Description 05/15/2024 3:30 PM ELECTRICAL PROJECT ENGINEER [place] [address] Pankaj Rosenberg MD [address] [address] 05/25/2024 12:45 PM ELECTRICAL PROJECT ENGINEER Office Visit [facility] Physical Therapy [address] [place] [address] Pankaj Rosenberg MD Critical access hospital[address] [address] Maya Magaña, [place] [address] 05/30/2024 3:40 PM ELECTRICAL PROJECT ENGINEER Office Visit [facility] Medical [facility] Multispecialty Care - [address] [address] Pankaj Rosenberg MD Critical access hospital8 [address] [address] 06/20/2024 3:40 PM ELECTRICAL PROJECT ENGINEER Telemedicine [facility] Medical [facility] Multispecialty Care - [address] [address] Pankaj Rosenberg MD [address] [place] [address] 06/21/2024 1:00 PM ELECTRICAL PROJECT ENGINEER Office Visit [facility] Medical Group Orthopedic & Sports Medicine - [place] [address] [place] [address] Jose Ratliff MD [address] [address] [place] [address] 03/27/2025 1:00 PM ELECTRICAL PROJECT ENGINEER Office Visit [facility] Medical Group Multispecialty Care - [facility] [address] [facility] [facility] [address] [place] [address] Bob Oneal MD [address] [facility] [address] [place] [address] documented as of this encounter Procedures Procedure Name Priority Date/Time Associated Diagnosis Comments TESTOSTERONE, TOTAL Routine 04/28/2022 7 :41 AM ELECTRICAL PROJECT ENGINEER Chronic fatigue documented in this encounter Results * (ABNORMAL) TESTOSTERONE, TOTAL (04/28/2022 7:41 AM ELECTRICAL PROJECT ENGINEER) Testosterone: 196.8(L) 197.4 - 669.6 NG/DL 04/28/2022 7:26 PM ELECTRICAL PROJECT ENGINEER [facility] Comment: ASSAY PERFORMED BY CHEMILUMINESCENCE METHODOLOGY USING SIEMENS [employer] XPT REAGENT. PATIENT RESULTS DETERMINED BY ASSAYS USING DIFFERENT MANUFACTURERS FOR METHODS MAY NOT BE COMPARABLE. 04/28/2022 7:41 AM ELECTRICAL PROJECT ENGINEER Pankaj Rosenberg MD LABORATORY Final Result [facility] [address] [place] [address], [id number] documented in this encounter Visit Diagnoses Diagnosis Chronic fatigue Other malaise and fatigue documented in this encounter Additional Health Concerns Assessment Noted Time PHQ-9 Depression Total Score: 0 08/01/19 22 2:12 PM CDT documented as of this encounter Care Teams Organizational Development Director Relationship Specialty Start Date End Date Pankaj Rosenberg MD 1188 [facility] [address] [place] [address] PCP - General INTERNAL MEDICINE 06/15/21 documented as of this encounter
--- OUTSIDE RECORDS SUMMARY | 2024-05-13 11:23 | XMS_ITS | Encounter Summary ---
Author Organization [facility] Address [address] [place] [address]. [place], [place] [address] [place] [address] Care Team Providers Care Management Trainee Marketing Name Role Phone Pankaj Rosenberg MD Primary Care Provider [phone] Encounter Details Date Type Department Care Team [...] on file Legal Sex Male 2:58 PM ELEMENT BURNER Gender Identity Male 07/13/2021 5:19 AM ELEMENT BURNER Sexual Orientation Straight 07/13/2021 5: 19 AM ELEMENT BURNER COVID-19 Exposure Response Date Recorded In the last 10 days, have yo u been in contact with someone who was confirmed or suspected to have Coronavirus/COVID-19? No / Unsure 06/15/2022 1:57 PM ELEMENT BURNER documented as of this encounter Plan of Treatment Upcoming Encounters Date Type Department Care Team (Late st Contact Info) Description 05/15/2024 3:30 PM ELEMENT BURNER Appointment [facility] [place] [address] [place] [address] [place] [address] [address] [place] [address] 05/25/2024 12:45 PM ELEMENT BURNER Office Visit [facility] Physical Therapy [facility] [address] [place] [address] Pankaj Rosenberg MD [address] [address] Maya Magaña, [place] [address] 05/30/2024 3:40 PM ELEMENT BURNER Office Visit [facility] Multispecialty [facility] [place] [address] [place] [address] [address] [address] [place] [address] Pankaj Rosenberg MD [address] [address] 06/20/2024 3:40 PM ELEMENT BURNER [facility]medicine [facility] [place] [address] [address] [place] [address] Pankaj Rosenberg MD [address] [address] 06/21/2024 1:00 PM ELEMENT BURNER Office Visit [facility] Medical [facility] Orthopedic & Sports Medicine - [place] [address] [place] [address] Jose Ratliff MD [address] [address] [place] [address] 03/27/2025 1:00 PM ELEMENT BURNER Office Visit [facility] Multispecialty Care - [facility] [address] [facility] [place] [address] Bob Oneal MD 3 [facility] [address] [place] [address] documented as of this encounter Visit Diagnoses Not on filedocumented in this encounter Additional Health Concerns Assessment Noted Time PHQ-9 Depression Total Score: 0 08/01/19 22 2:12 PM CDT documented as of this encounter Care Teams Management Trainee Marketing Relationship Specialty Start Date End Date Pankaj Rosenberg MD [address] [facility] [address] [place] [address] PCP - General INTERNAL MEDICINE 06/15/21 documented as of this encounter
--- OUTSIDE RECORDS SUMMARY | 2024-05-13 11:23 | XMS_ITS | Encounter Summary ---
Author Organization [facility] Address [address] [place] [address]. [place], [place] [address] [place] [address] Care Team Providers Care Automatic Maintainer Name Role Phone Pankaj Rosenberg MD Primary Care Provider [phone] Reason for Visit * Reason Comments Follow Up Pt is following up f or chronic medical issues Physical Encounter Details Date Type Department Care Team (Latest Contact Info) Description 06/15/2022 2:20 PM PRODUCT MANAGEMENT SPECIALIST Office Visit [facility] Medical Group Multispecialty Care - [place] [address] [address] [place] [address] Pankaj Rosenberg MD [address] [place] [phone] Follow Up (Pt is following up for [...] on file Legal Sex Male 2:58 PM PRODUCT MANAGEMENT SPECIALIST Gender Identity Male 07/13/2021 5:19 AM PRODUCT MANAGEMENT SPECIALIST Sexual Orientation Straight 07/13/2021 5: 19 AM PRODUCT MANAGEMENT SPECIALIST COVID-19 Exposure Response Date Recorded In the last 10 days, have yo u been in contact with someone who was confirmed or suspected to have Coronavirus/COVID-19? No / Unsure 06/15/2022 1:57 PM PRODUCT MANAGEMENT SPECIALIST documented as of this encounter Last Filed Vital Signs Vital Sign Reading Time Taken Comments Blood Pressure 135/87 06/15/2022 3:10 PM PRODUCT MANAGEMENT SPECIALIST Pulse 99 06/15/2022 2:21 PM PRODUCT MANAGEMENT SPECIALIST Temperature 37.3 ??C (99.2 ??F) 06/15/2022 2:21 PM CS T Respiratory Rate 18 06/15/2022 2:21 PM PRODUCT MANAGEMENT SPECIALIST Oxygen Saturation 97% 06/15/2022 2:21 PM PRODUCT MANAGEMENT SPECIALIST Inhaled Oxygen Concentration - - Weight 121.5 kg (267 lb 12.8 oz) 06/15/2022 2:21 PM PRODUCT MANAGEMENT SPECIALIST Height 180.3 cm (5' 11 ) 06/15/2022 2:21 PM PRODUCT MANAGEMENT SPECIALIST Body Mass Index 37.35 06/15/2022 2:21 PM PRODUCT MANAGEMENT SPECIALIST documented in this encounter Patient Instructions * Patient Instructions* Pankaj Rosenberg MD - 06/15/2022 2:20 PM PRODUCT MANAGEMENT SPECIALIST Follow-up within 1 week fasting and early in the morning for your blood draw. Follow-up in 4 months for your next visit UCT MANAGEMENT SPECIALIST * Attachments The following attachments cannot be sent through Care Everywhere. * Yearly Physical for Adults (Albanian) documented in this encounter Progress Notes * [...] present for a while and not improved bncepnrr-rmp-lvqvjns medications. He tells me he has seen [...] currently does not follow routinely with an cigarette packer. ?? Patient Active Problem List Diagnosis ??? [...] performed by Bob Oneal MD at [facility] OR ??? SEPTOPLASTY ??? SMALL INTESTINE SURGERY [...] a week. 120 mL 1 ??? Lancets (DragonplayTOUCH DELICA PLUS [id number]) [facility] USE 1 LANCET TO PRICK FINGER TWICE [...] MCG/ACT nasal inhaler ??? TRUEplus Lancets 33G [facility] No current facility-administered medications for this visit. [...] sleeping or taking a nap. ??? Lancets (DragonplayTOUCH DELICA PLUS [id number]) [facility] USE 1 LANCET TO PRICK FINGER TWICE DAILY BEFORE TESTING ??? lidocaine 5 % Place 1 patch onto the skin daily. ??? polyethylene glycol 17 GM/SCOOP powder Take 17 g by mouth daily. ??? SUCRALFATE 1 G tablet TAKE 1 TABLET(1 GRAM) BY MOUTH THREE TIMES DAILY BEFORE MEALS ??? triamcinolone acetonide 55 MCG/ACT nasal inhaler ??? TRUEplus Lancets 33G [facility] No current facility-administered medications on file prior [...] was at least in part performed using Druva and there may be some inherent flaws in this department secretary due to the nature of this program. MD Pankaj QUEVEDO MD Internal Medicine [facility] Medical Group, [facility]. UCT MANAGEMENT SPECIALIST documented in this encounter Plan of Treatment Upcoming Encounters Date Type Department Care Team (Late st Contact Info) Description 05/15/2024 3:30 PM PRODUCT MANAGEMENT SPECIALIST Appointment [place] [address] Pankaj Rosenberg MD 1188 [facility] [address] [place] [address] 05/25/2024 12:45 PM PRODUCT MANAGEMENT SPECIALIST Office Visit [facility] Physical Therapy [address] [address] Pankaj Rosenberg MD [address] [address] Maya Magaña, [place] [address] 05/30/2024 3:40 PM PRODUCT MANAGEMENT SPECIALIST [facility] [place] [address] [address] [place] [address] Pankaj Rosenberg MD [facility] [address] 06/20/2024 3:40 PM PRODUCT MANAGEMENT SPECIALIST [facility] [place] [address] [address] [place] [address] Pankaj Rosenberg MD [facility] [address] [address] 06/21/2024 1:00 PM PRODUCT MANAGEMENT SPECIALIST Office Visit [facility] Orthopedic & Sports Medicine - [place] [address] [place] [address] Jose Ratliff MD [address] [place] [address] 03/27/2025 1:00 PM PRODUCT MANAGEMENT SPECIALIST Office Visit [facility] Multispecialty Care - [address] [place] [address] Bob Oneal MD 3 [facility] [address] [place] [address] documented as of this encounter Procedures Procedure Name Priority Date/Time Associated Diagnosis Comments VENIPUNC ARM DRAW Routine 06/15/2022 2:5 7 PM PRODUCT MANAGEMENT SPECIALIST Annual physical exam URINALYSIS AUTO DIP Routine 06/15/2022 Annual physical exam ALBUMIN URINE RANDOM W/CREATININE Routine 06/15/2022 Annual physical exam documented in this encounter Results * ALBUMIN URINE RANDOM (06/15/2022) MICROALBUMIN (U) 30 MG- [address], [place] CREATININE RANDOM (U) 200 [address], [place] MICROALB/CREAT <30 MG-[address], [place] Comment:normal URINE SPECIMEN / Unknown 06/15/2022 Pankaj Rosenberg MD URINE ORDERABLES Final Result MG-[address], [place] [address] [place] [address], * URINALYSIS AUTO DIP (06/15/2022) COLOR (U) YELLOW MG-[address], [place] TRANSPARENCY CLEAR MG-[address], [place] GLUCOSE (U) NEGATIVE NEGATIVE MG/DL MG-[address], [place] BILIRUBIN (U) NEGATIVE NEGATIVE MG-[address], [place] KETONES MG/DL (U) NEGATIVE NEGATIVE MG/DL MG-[address], [place] SPECIFIC GRAVITY (U) >=1.030 1.001 - 1.035 MG-[address], [place] BLOOD (U) NEGATIVE NEGATIVE MG-[address], [place] U PH 7.0 5.0 - 9.0 MG-[address], [place] PROTEIN (U) NEGATIVE NEGATIVE mg/dL MG-[address], [place] UROBILINOGEN 0.2 0.2 - 1.0 EU/dL = mg/dL MG-[address], [place] NITRITES NEGATIVE NEGATIVE MG/DL MG-[address], [place] LEUKOCYTES (U) NEGATIVE NEGATIVE MG-[address], [place] URINE SPECIMEN OBTAINED BY CLEAN CATCH PROCEDURE / Unknown 06/15/2022 Pankaj Rosenberg MD URINE ORDERABLES Final Result MG-[address], [place] [address] [facility] [address] [place] [address], documented in this encounter Visit Diagnoses Diagnosis Annual physical exam- Primary Routine general medical examination at a health care facility Low testosterone Other testicular hypofunction Seborrheic dermatitis Seborrheic dermatitis, unspecified Hypertension associated with type 2 diabetes mellitus ([facility]) Essential hypertension, benign Allergic rhinitis, unspecified seasonality, unspecified trigger Environmental allergies Allergic rhinitis, cause unspecified Gastroesophageal reflux disease without esophagitis Esophageal reflux Hyperlipidemia due to type 2 diabetes mellitus ([facility]) Mixed hyperlipidemia Type 2 diabetes mellitus with hyperglycemia, without long-term current use of insulin ([facility]) documented in this encounter Additional Health Concerns Assessment Noted Time PHQ-9 Depression Total Score: 0 08/01/19 22 2:12 PM CDT documented as of this encounter Care Teams Automatic Maintainer Relationship Specialty Start Date End Date Pankaj Rosenberg MD 1188 [facility] [address] [place] [address] PCP - General INTERNAL MEDICINE 06/15/21 documented as of this encounter
--- OUTSIDE RECORDS SUMMARY | 2024-05-13 11:23 | XMS_ITS | Encounter Summary ---
Author Organization [facility] Address [address] [place] [address]. [place], [place] [address] [place] [address] Care Team Providers Care Purse Seiner Name Role Phone Pankaj Rosenberg MD Primary Care Provider [phone] Reason for Visit * Reason Onset Date Comments Reschedule 06/30/2022 Called patient a nd left voicemail that we need to reschedule their appt scheduled for this July 02 and to call the office back at [phone]. Encounter Details Date Type Department Care Team (Late st Contact Info) Description 06/30/[address] [facility] Medical Group Multispecialty Care - [place] [address] [address] [place] [address] Pankaj Rosenberg MD [address] [place] [address] Reschedule (Called patient and left voicemail that we need to reschedule their appt scheduled for this July 02 and to call the office back at [phone]. ) Social History Tobacco Use Types Packs/Day [...] on file Legal Sex Male 2:58 PM SALESFORCE SPECIALIST Gender Identity Male 07/13/2021 5:19 AM SALESFORCE SPECIALIST Sexual Orientation Straight 07/13/2021 5: 19 AM SALESFORCE SPECIALIST COVID-19 Exposure Response Date Recorded In the last 10 days, have yo u been in contact with someone who was confirmed or suspected to have Coronavirus/COVID-19? No / Unsure 06/15/2022 1:57 PM SALESFORCE SPECIALIST documented as of this encounter Plan of Treatment Upcoming Encounters Date Type Department Care Team (Late st Contact Info) Description 05/15/2024 3:30 PM SALESFORCE SPECIALIST Appointment [facility] [place] [address] Pankaj Rosenberg MD [address] [place] [address] 05/25/2024 12:45 PM SALESFORCE SPECIALIST Office Visit [facility] Physical Therapy [address] [place] [address] Pankaj Rosenberg MD [address] [place] [address] Maya Magaña, [place] [address] 05/30/2024 3:40 PM SALESFORCE SPECIALIST Office Visit [facility] - [place] [address] [address] [place] [address] Pankaj Rosenberg MD [address] [place] [address] 06/20/2024 3:40 PM SALESFORCE SPECIALIST [facility]icine [facility] [place] [address] [address] [place] [address] Pankaj Rosenberg MD [address] [place] [address] 06/21/2024 1:00 PM SALESFORCE SPECIALIST Office Visit [facility] Orthopedic & Sports Medicine - [place] [address] [place] [address] Jose Ratliff MD [address] [address] [place] [address] 03/27/2025 1:00 PM SALESFORCE SPECIALIST Office Visit [facility] Multispecialty Care - [facility] [address] [facility] [place] [address] Bob Oneal MD [address] [facility] [address] [place] [address] documented as of this encounter Visit Diagnoses Not on filedocumented in this encounter Additional Health Concerns Assessment Noted Time PHQ-9 Depression Total Score: 0 08/01/19 22 2:12 PM CDT documented as of this encounter Care Teams Purse Seiner Relationship Specialty Start Date End Date Pankaj Rosenberg MD 1188 [facility] 157 [place] [address] PCP - General INTERNAL MEDICINE 06/15/21 documented as of this encounter
--- OUTSIDE RECORDS SUMMARY | 2024-05-13 11:23 | XMS_ITS | Encounter Summary ---
Author Organization [facility] Address [address] [place] [address]. [place], [place] [address] [place] [address] Care Team Providers Care Office Specialist Name Role Phone Pankaj Rosenberg MD Primary Care Provider [phone] Reason for Visit * Reason Onset Date Comments Follow Up Call 03/21/2022 Encounter Details Date Type Department Care Team (Late st Contact Info) Description 03/21/2022 Telephone [facility] Medical Group Multispecialty Care - [place] [address] [address] [place], [place] [address] Pankaj Rosenberg MD [address] [place] [address] 157 [place] [address] Follow Up Call Social History [...] on file Legal Sex Male 2:58 PM TELEGRAPH EQUIPMENT MAINTAINER Gender Identity Male 07/13/2021 5:19 AM TELEGRAPH EQUIPMENT MAINTAINER Sexual Orientation Straight 07/13/2021 5: 19 AM TELEGRAPH EQUIPMENT MAINTAINER documented as of this encounter Progress Notes * Pankaj Rosenberg MD - 03/21/2022 8:42 PM CST Patient has been discharged from outside hospital. Please call and schedule for TCM visit and please get outside discharge summary notes. Thanks Pankaj Rosenberg MD Internal Medicine [facility]. GRAPH EQUIPMENT MAINTAINER documented in this encounter Plan of Treatment Upcoming Encounters Date Type Department Care Team (Late st Contact Info) Description 05/15/2024 3:30 PM TELEGRAPH EQUIPMENT MAINTAINER Appointment [facility] [place] [address] Pankaj Rosenberg MD [address] [place] [address] 05/25/2024 12:45 PM TELEGRAPH EQUIPMENT MAINTAINER Office Visit [facility] Physical Therapy [address] [place] [address] Pankaj Rosenberg MD [address] [place] [address] Maya Magaña, [place] [address] 05/30/2024 3:40 PM TELEGRAPH EQUIPMENT MAINTAINER [facility] - [address] [address] Pankaj Rosenberg MD [address] [place] [address] 06/20/2024 3:40 PM TELEGRAPH EQUIPMENT MAINTAINER [facility]medicine [facility] - [address] [address] Pankaj Rosenberg MD [facility] [address] [address] 06/21/2024 1:00 PM TELEGRAPH EQUIPMENT MAINTAINER Office Visit [facility] Orthopedic & Sports Medicine - [place] [address] [place] [address] Jose Ratliff MD [address] [address] [place] [address] 03/27/2025 1:00 PM TELEGRAPH EQUIPMENT MAINTAINER Office Visit [facility] Multispecialty Care - [facility] [address] [facility] [place] [address] Bob Oneal MD 3 [facility] [address] [place] [address] documented as of this encounter Visit Diagnoses Not on filedocumented in this encounter Additional Health Concerns Assessment Noted Time PHQ-9 Depression Total Score: 0 08/01/19 22 2:12 PM CDT documented as of this encounter Care Teams Office Specialist Relationship Specialty Start Date End Date Pankaj Rosenberg MD [address] [address] PCP - General INTERNAL MEDICINE 06/15/21 documented as of this encounter
--- OUTSIDE RECORDS SUMMARY | 2024-05-13 11:23 | XMS_ITS | Encounter Summary ---
Author Organization [facility] Address [address] [place] [address]. [place], [place] [address] [place] [address] Care Team Providers Care Data Miner Name Role Phone Pankaj Rosenberg MD Primary Care Provider [phone] Encounter Details Date Type Department Care Team [...] on file Legal Sex Male 2:58 PM COOK HELPER PRESERVES Gender Identity Male 07/13/2021 5:19 AM COOK HELPER PRESERVES Sexual Orientation Straight 07/13/2021 5: 19 AM COOK HELPER PRESERVES COVID-19 Exposure Response Date Recorded In the last 10 days, have yo u been in contact with someone who was confirmed or suspected to have Coronavirus/COVID-19? No / Unsure 04/29/2022 10:26 AM COOK HELPER PRESERVES documented as of this encounter Plan of Treatment Upcoming Encounters Date Type Department Care Team (Late st Contact Info) Description 05/15/2024 3:30 PM COOK HELPER PRESERVES Appointment [facility] MRI ONE [place], [place] [address] Pankaj Rosenberg MD [address] [address] 05/25/2024 12:45 PM COOK HELPER PRESERVES Office Visit [facility] Physical Therapy [facility] [address] Pankaj Rosenberg MD [address] [address] Myaa [place]aña, [place] [address] 05/30/2024 3:40 PM COOK HELPER PRESERVES Office Visit [facility] Medical [facility] Multispecialty [facility] [place] [address] [address] [address] [address] [place] [address] Pankaj Rosenberg MD [address] [address] 06/20/2024 3:40 PM COOK HELPER PRESERVES Telemedicine [facility] Medical [facility] Multispecialty [facility] [place] [address] [address] [place] [address] Pankaj Rosenberg MD [address] [address] 06/21/2024 1:00 PM COOK HELPER PRESERVES Office Visit [facility] Medical Group [facility] - [place] [address] [place] [address] Jose Ratliff MD [address] [address] [place] [address] 03/27/2025 1:00 PM COOK HELPER PRESERVES Office Visit [facility] Medical Group Multispecialty Care - [facility] 3 [facility] [address] [place] [address] Bob Oneal MD [address] [place] [address] documented as of this encounter Visit Diagnoses Not on filedocumented in this encounter Additional Health Concerns Assessment Noted Time PHQ-9 Depression Total Score: 0 08/01/19 22 2:12 PM CDT documented as of this encounter Care Teams Data Miner Relationship Specialty Start Date End Date Pankaj Rosenberg MD [address] [address] PCP - General INTERNAL MEDICINE 06/15/21 documented as of this encounter
--- OUTSIDE RECORDS SUMMARY | 2024-05-13 11:23 | XMS_ITS | Encounter Summary ---
Author Organization [facility] Address [address] [place] [address]. [place], [place] [address] [place] [address] Care Team Providers Care Line Prep Cook Name Role Phone Pankaj Rosenberg MD Primary Care Provider [phone] Encounter Details Date Type Department Care Team [...] file Legal Sex Male 2:58 PM MANUFACTURING ACCOUNTANT Gender Identity Male 07/13/2021 5:19 AM MANUFACTURING ACCOUNTANT Sexual Orientation Straight 07/13/2021 5: 19 AM MANUFACTURING ACCOUNTANT documented as of this encounter Plan of Treatment Upcoming Encounters Date Type Department Care Team (Late st Contact Info) Description 05/15/2024 3:30 PM MANUFACTURING ACCOUNTANT [facility]ointment [facility] [place] [address] Pankaj Rosenberg MD [address] [address] 05/25/2024 12:45 PM MANUFACTURING ACCOUNTANT Office Visit [facility] Physical Therapy [facility] [address] [address] Pankaj Rosenberg MD [address] [address] Maya Magaña, PT One [facility] [place] [address] 05/30/2024 3:40 PM MANUFACTURING ACCOUNTANT [facility] [place] [address] [address] [place] [address] Pankaj Rosenberg MD [facility] [address] [address] 06/20/2024 3:40 PM MANUFACTURING ACCOUNTANT Telemedicine [facility] - [place] [address] [address] [place] [address] Pankaj Rosenberg MD [address] [address] 06/21/2024 1:00 PM MANUFACTURING ACCOUNTANT Office Visit [facility] Orthopedic & Sports Medicine - [place] [address] [place] [address] Jose Ratliff MD [address] [address] [place] [address] 03/27/2025 1:00 PM MANUFACTURING ACCOUNTANT Office Visit [facility] Mult[facility]pecialty Care - [facility] 3 [facility] [address] [place] [address] Bob Oneal MD 3 [facility] [address] [place] [address] documented as of this encounter Visit Diagnoses Not on filedocumented in this encounter Additional Health Concerns Assessment Noted Time PHQ-9 Depression Total Score: 0 08/01/19 22 2:12 PM CDT documented as of this encounter Care Teams Line Prep Cook Relationship Specialty Start Date End Date Pankaj Rosenberg MD [address] [address] PCP - General INTERNAL MEDICINE 06/15/21 documented as of this encounter
--- OUTSIDE RECORDS SUMMARY | 2024-05-13 11:23 | XMS_ITS | Encounter Summary ---
Author Organization [facility] Address [address] [place] [address]. [place], [place] [address] [place] [address] Care Team Providers Care Calendering Supervisor Name Role Phone Pankaj Rosenberg MD Primary Care Provider [phone] Reason for Visit * Reason Comments Allied Health Visit Pt is here for lab d raw Encounter Details Date Type Department Care Team (Latest Contact Info) Description 04/28/2022 7:30 AM MANAGER OF PHOTOGRAPHY Allied Health/Nurse Visit [facility] Medical Group Multispecialty Care - [place] [address] [address] [place] [address] Pankaj Rosenberg MD [address] [place] [address] 157 [place], [place] [phone] Allied Health Visit (Pt is here for [...] file Legal Sex Male 2:58 PM MANAGER OF PHOTOGRAPHY Gender Identity Male 07/13/2021 5:19 AM MANAGER OF PHOTOGRAPHY Sexual Orientation Straight 07/13/2021 5: 19 AM MANAGER OF PHOTOGRAPHY COVID-19 Exposure Response Date Recorded In the last 10 days, have yo u been in contact with someone who was confirmed or suspected to have Coronavirus/COVID-19? No / Unsure 04/28/2022 7:22 AM MANAGER OF PHOTOGRAPHY documented as of this encounter Progress Notes * Alisia Felix - 04/28/2022 7:30 AM CSTAddended by: ALISIA FELIX on: 04/28/2022 03:41 PM Modules accepted: Orders GER OF PHOTOGRAPHY * Isela Daily MA - 04/28/2022 7:30 AM CST Pt is here for lab draw GER OF PHOTOGRAPHY documented in this encounter Plan of Treatment Upcoming Encounters Date Type Department Care Team (Late st Contact Info) Description 05/15/2024 3:30 PM MANAGER OF PHOTOGRAPHY Appointment [facility] [place] [address] Pankaj Rosenberg MD [address] [place] [address] 05/25/2024 12:45 PM MANAGER OF PHOTOGRAPHY Office Visit [facility] Physical Therapy [address] [place] [address] Pankaj Rosenberg MD [address] [place] [address] Maya Magaña, [place] [address] 05/30/2024 3:40 PM MANAGER OF PHOTOGRAPHY Office Visit [facility] Medical Group Multispecialty Care - [place] [address] [address] [place] [address] Pankaj Rosenberg MD [address] [place] [address] 06/20/2024 3:40 PM MANAGER OF PHOTOGRAPHY Telemedicine [facility] Multispecialty Care - [place] [address] [place] [address] [address] [place] [address] Pankaj Rosenberg MD 1188 [facility] 157 [place] [address] 06/21/2024 1:00 PM MANAGER OF PHOTOGRAPHY Office Visit [facility] Orthopedic & Sports Medicine - [place] [address] [place] [address] Jose Ratliff MD 670 [facility] [address] [place] [address] 03/27/2025 1:00 PM MANAGER OF PHOTOGRAPHY [facility] 3 [facility] [address] [place] [address] Bob Oneal MD 3 [facility] [address] [place] [address] documented as of this encounter Procedures Procedure Name Priority Date/Time Associated Diagnosis Comments LYME DISEASE ANTIBODY Routine 04/28/2022 7:42 AM MANAGER OF PHOTOGRAPHY Chronic fatigue VENIPUNC ARM DRAW Routine 04/28/2022 7:4 1 AM MANAGER OF PHOTOGRAPHY Chronic fatigue documented in this encounter Results * LYME DISEASE ANTIBODY (04/28/2022 7:42 AM MANAGER OF PHOTOGRAPHY) LYME IGG/IGM <0.90 index [facility] Comment: ? Index ?Interpretation ? ----- ? [...] erythema migrans is apparent. 04/28/2022 7:42 AM MANAGER OF PHOTOGRAPHY 04/29/2022 2:37 AM MANAGER OF PHOTOGRAPHY Narrative Resulting Agency Comment Performing Organization Information: ?Site ID: [id number] ?Name: [employer] ?Address: [address] [place] [address] ?Director: Wild Romero D.O., GERARD Pankaj Rosenberg MD LABORATORY Final Result Performing Organization Address City/State/[facility] Co de Phone Number [employer] [facility] - [employer] [facility] [address] [place], [place] [address] documented in this encounter Visit Diagnoses Diagnosis Chronic fatigue- Primary Other malaise and fatigue documented in this encounter Additional Health Concerns Assessment Noted Time PHQ-9 Depression Total Score: 0 08/01/19 2:12 PM CDT documented as of this encounter Care Teams Calendering Supervisor Relationship Specialty Start Date End Date Pankaj Rosenberg MD 1188 [facility] [address] [place] [address] PCP - General INTERNAL MEDICINE 06/15/21 documented as of this encounter
--- OUTSIDE RECORDS SUMMARY | 2024-05-13 11:23 | XMS_ITS | Encounter Summary ---
Author Organization [facility] Address [address] [place] [address]. [place], [place] [address] [place] [address] Care Team Providers Care Tmd Teacher Name Role Phone Pankaj Rosenberg MD Primary Care Provider [phone] Reason for Visit * Reason Comments Hospital Follow Up Pt was in the hospit al for a partial obstruction. Pt was a [facility] Encounter Details Date Type Department Care Team (Latest Contact Info) Description 04/06/2022 11:20 AM MAKEUP SALES CONSULTANT Office Visit [facility] Medical Group Multispecialty Care - [address] [place], [place] [address] Pankaj Rosenberg MD [address] [place] [address] 157 [place] [address] Hospital Follow Up (Pt was in the hospital for a partial obstruction. Pt was a [facility]) Social History Tobacco Use Types Packs/Day [...] on file Legal Sex Male 2:58 PM MAKEUP SALES CONSULTANT Gender Identity Male 07/13/2021 5:19 AM MAKEUP SALES CONSULTANT Sexual Orientation Straight 07/13/2021 5: 19 AM MAKEUP SALES CONSULTANT COVID-19 Exposure Response Date Recorded In the last 10 days, have srinivasan choi been in contact with someone who was confirmed or suspected to have Coronavirus/COVID-19? No / Unsure 04/28/2022 7:22 AM MAKEUP SALES CONSULTANT documented as of this encounter Last Filed Vital Signs Vital Sign Reading Time Taken Comments Blood Pressure 138/89 04/06/2022 11:44 AM MAKEUP SALES CONSULTANT Pulse 80 04/06/2022 11:21 AM MAKEUP SALES CONSULTANT Temperature 37.2 ??C (98.9 ??F) 04/06/2022 1 1:21 AM MAKEUP SALES CONSULTANT Respiratory Rate 18 04/06/2022 11:2 1 AM MAKEUP SALES CONSULTANT Oxygen Saturation 97% 04/06/2022 11: 21 AM MAKEUP SALES CONSULTANT Inhaled Oxygen Concentration - - Weight 118.5 kg (261 lb 3.2 oz) 022 11:21 AM MAKEUP SALES CONSULTANT Height 180.3 cm (5' 11 ) 04/06/2022 11: 21 AM MAKEUP SALES CONSULTANT Body Mass Index 36.43 04/06/2022 11:21 AM MAKEUP SALES CONSULTANT documented in this encounter Patient Instructions * Patient Instructions* Pankaj Rosenberg MD - 04/06/2022 11:20 AM MAKEUP SALES CONSULTANT Please follow up with your surgeon for the gall bladder polyp: please call [phone] to follow up. Bernardo Pedraza MD - SURGERY Priority: Routine Type: Surgical Visits Requested: 99 Decision Date: 09/09/2021 Start Date: 08/26/2021 Expiration Date: 09/26/2022 [facility] S[facility] UP SALES CONSULTANT UP SALES CONSULTANT * Attachments The following attachments cannot be sent through Care Everywhere. * Constipation, Adult ED (Barbadian) * Lowering Your Risk of High Blood Pressure (Barbadian) documented in this encounter Progress Notes * Pankaj Rosenberg MD - 04/06/2022 11:20 AM CSTSummary: Hospital follow-up visit notes Images from the original note were not included. Internal Medicine Outpatient Progress Note CC: Hospital Follow Up (Pt was in the hospital for a partial obstruction. Pt was a [facility]) HPI: Chuck Barlow is a 26-year-old male who presents for hospital follow-up after being admitted at [facility] after presenting with acute abdominal pain concerning [...] Oneal MD at [facility] OR ??? SEPTOPLASTY ??? SMALL INTESTINE SURGERY [...] mL 1 ??? Blood Glucose Monitoring Suppl (ShopItToMeTOUCH VERIO REFLECT) w/Device Kit 1 Units by Does not apply route 2 (two) times daily. ??? cetirizine 5 MG chewable tablet Chew 5 mg by mouth daily. ??? CPAP DEVICE, DME, Use daily when sleeping or taking a nap. 1 Device 0 ??? Lancets (ShopItToMeTOUCH DELICA PLUS [id number]) [facility] USE 1 LANCET TO PRICK FINGER TWICE [...] was at least in part performed using [employer] and there may be some inherent flaws in this nail tech due to the nature of this program. Pankaj Rosenberg MD Internal Medicine [facility]. UP SALES CONSULTANT documented in this encounter Plan of Treatment Upcoming Encounters Date Type Department Care Team (Late st Contact Info) Description 05/15/2024 3:30 PM MAKEUP SALES CON[place] [address] Pankaj Rosenberg MD [address] [place] [address] 05/25/2024 12:45 PM MAKEUP SALES CONSULTANT Office Visit [facility] Physical Therapy [address] [place] [address] Pankaj Rosenberg MD [address] [place] [address] Maya Magaña, [place] [address] 05/30/2024 3:40 PM MAKEUP SALES CONSULTANT Office Visit [facility] Medical Group Multispecialty Care - [place] [address] [address] [place] [address] Pankaj Rosenberg MD 1188 [facility] 157 [place] [address] 06/20/2024 3:40 PM MAKEUP SALES CONSULTANT Telemedicine [facility] Multispecialty Care - [place] 1188 [facility] [address] [place] [address] Pankaj Rosenberg MD 1188 [facility] 157 [place] [address] 06/21/2024 1:00 PM MAKEUP SALES CONSULTANT Office Visit [facility] Orthopedic & Sports Medicine - [place] [address] [place] [address] Jose Ratliff MD 670 [facility] [address] [place] [address] 03/27/2025 1:00 PM MAKEUP SALES CONSULTANT Office Visit [facility] Multispecialty Care - [facility] 3 [facility] [address] [place] [phone] Bob Oneal MD 3 [facility] [address] [place], [place] [address] documented as of this encounter Results * (ABNORMAL) TESTOSTERONE, TOTAL (04/28/2022 7:41 AM MAKEUP SALES CONSULTANT) Testosterone: 196.8(L) 197.4 - 669.6 NG/DL 04/28/2022 7:26 PM MAKEUP SALES CONSULTANT [facility] Comment: ASSAY PERFORMED BY CHEMILUMINESCENCE METHODOLOGY USING SIEMENS CENTAUR XPT REAGENT. PATIENT RESULTS DETERMINED BY ASSAYS USING DIFFERENT MANUFACTURERS FOR METHODS MAY NOT BE COMPARABLE. 04/28/2022 7:41 AM MAKEUP SALES CONSULTANT Pankaj Rosenberg MD LABORATORY Final Result [facility] [address] [place] [address], [id number] documented in this encounter Visit Diagnoses Diagnosis Partial small bowel obstruction ([facility] HHS/HCC)- Primary Unspecified intestinal obstruction Type 2 diabetes mellitus with hyperglycemia, without long-term current use of insulin ([facility] HHS/HCC) Hypertension associated with type 2 diabetes mellitus ([facility] HHS/HCC) Hyperlipidemia due to type 2 diabetes mellitus ([facility] HHS/HCC) History of gastroschisis Gastroesophageal reflux disease without esophagitis Esophageal reflux Chronic fatigue Other malaise and fatigue Mixed hyperlipidemia Essential hypertension, benign documented in this encounter Additional Health Concerns Assessment Noted Time PHQ-9 Depression Total Score: 0 08/01/19 22 2:12 PM CDT documented as of this encounter Care Teams Tmd Teacher Relationship Specialty Start Date End Date Pankaj Rosenberg MD 1188 [facility] [address] [place] [address] PCP - General INTERNAL MEDICINE 06/15/21 documented as of this encounter
--- OUTSIDE RECORDS SUMMARY | 2024-05-13 11:23 | XMS_ITS | Encounter Summary ---
Author Organization [facility] Address [address] [place] [address]. [place], [place] [address] [place] [address] Care Team Providers Care Biomedical Engineering Technician Name Role Phone Pankaj Rosenberg MD Primary Care Provider [phone] Encounter Details Date Type Department Care Team [...] on file Legal Sex Male 2:58 PM GOLF BALL TRIMMER Gender Identity Male 07/13/2021 5:19 AM GOLF BALL TRIMMER Sexual Orientation Straight 07/13/2021 5: 19 AM GOLF BALL TRIMMER COVID-19 Exposure Response Date Recorded In the last 10 days, have yo u been in contact with someone who was confirmed or suspected to have Coronavirus/COVID-19? No / Unsure 04/28/2022 7:22 AM GOLF BALL TRIMMER documented as of this encounter Plan of Treatment Upcoming Encounters Date Type Department Care Team (Late st Contact Info) Description 05/15/2024 3:30 PM GOLF BALL TRIMMER [facility]ment [facility] [place] [address] Pankaj Rosenberg MD [address] [phone] 05/25/2024 12:45 PM GOLF BALL TRIMMER Office Visit [facility] Physical Therapy [facility] [address] Pankaj Rosenberg MD 1188 [facility] 157 [place] [address] Maya Magaña, [place] [address] 05/30/2024 3:40 PM GOLF BALL TRIMMER Office Visit [facility] Multispecialty [facility] - [place] [address] [address] [address] [address] [place] [address] Pankaj Rosenberg MD [address] [address] 06/20/2024 3:40 PM GOLF BALL TRIMMER [facility] - [place] [address] [address] [place] [address] Pankaj Rosenberg MD [address] [address] 06/21/2024 1:00 PM GOLF BALL TRIMMER Office Visit [facility] Medical Group Orthopedic & Sports Medicine - [place] [address] [place] [address] Jose Ratliff MD [address] [address] [place] [address] 03/27/2025 1:00 PM GOLF BALL TRIMMER Office Visit [facility] Medical [facility] Multispecialty Care - [facility] 3 [facility] [address] [place] [phone] Bob Oneal MD [address] [place] [address] documented as of this encounter Visit Diagnoses Not on filedocumented in this encounter Additional Health Concerns Assessment Noted Time PHQ-9 Depression Total Score: 0 08/01/19 2:12 PM CDT documented as of this encounter Care Teams Biomedical Engineering Technician Relationship Specialty Start Date End Date Pankaj Rosenberg MD [address] [address] PCP - General INTERNAL MEDICINE 06/15/21 documented as of this encounter
--- OUTSIDE RECORDS SUMMARY | 2024-05-13 11:23 | XMS_ITS | Encounter Summary ---
Author Organization [facility] Address [address] [place] [address]. [place], [place] [address] [place] [address] Care Team Providers Care Equestrian Trainer Name Role Phone Pankaj Rosenberg MD Primary Care Provider [phone] Reason for Visit * Reason Onset Date Comments Reschedule 06/07/2022 Encounter Details Date Type Department Care Team (Late st Contact Info) Description 06/07/2022 Telephone [facility] Medical Group Multispecialty Care - [place] [address] [address] [place] [address] Pankaj Rosenberg MD [address] [place] [address] 157 [place], [place] [id number] Reschedule Social History Tobacco Use Types Packs/Day [...] on file Legal Sex Male 2:58 PM ADMISSIONS RN Gender Identity Male 07/13/2021 5:19 AM ADMISSIONS RN Sexual Orientation Straight 07/13/2021 5: 19 AM ADMISSIONS RN documented as of this encounter Progress Notes * Milagros Knight - 06/11/2022 10:30 AM CST Rescheduled for 06/15 SSIONS RN * Ivana Falk - 06/07/2022 10:29 AM CST Please call patient to see if he can reschedule this appt he cancelled for 06/08/22 for a physical. SSIONS RN documented in this encounter Plan of Treatment Upcoming Encounters Date Type Department Care Team (Late st Contact Info) Description 05/15/2024 3:30 PM ADMISSIONS RN Appointment [facility] [place] [address] Pankaj Rosenberg MD [address] [place] [address] 05/25/2024 12:45 PM ADMISSIONS RN Office Visit [facility] Physical Therapy [address] [place] [address] Pankaj Rosenberg MD [address] [place] [address] Maya Magaña, [place] [address] 05/30/2024 3:40 PM ADMISSIONS RN [facility] - [place] [address] [address] [place] [address] Pankaj Rosenberg MD [address] [place] [address] 06/20/2024 3:40 PM ADMISSIONS RN [facility]medicine [facility] - [place] [address] [address] [place] [address] Pankaj Rosenberg MD 1188 [facility] 157 [place] [address] 06/21/2024 1:00 PM ADMISSIONS RN Office Visit [facility] Orthopedic & Sports Medicine - [place] [address] [place] [address] Jose Ratliff MD [address] [place] [address] [place] [address] 03/27/2025 1:00 PM ADMISSIONS RN Office Visit [facility] Multispecialty Care - [facility] 3 [facility] [address] [place] [address] Bob Oneal MD [facility] [address] [place] [address] documented as of this encounter Visit Diagnoses Not on filedocumented in this encounter Additional Health Concerns Assessment Noted Time PHQ-9 Depression Total Score: 0 08/01/19 22 2:12 PM CDT documented as of this encounter Care Teams Equestrian Trainer Relationship Specialty Start Date End Date Pankaj Rosenberg MD 1188 [facility] 157 [place] [address] PCP - General INTERNAL MEDICINE 06/15/21 documented as of this encounter
--- OUTSIDE RECORDS SUMMARY | 2024-05-13 11:23 | XMS_ITS | Encounter Summary ---
Author Organization [facility] Address [address] [place] [address]. [place], [place] [address] [place] [address] Care Team Providers Care Brass Finisher Name Role Phone Pankaj Rosenberg MD Primary Care Provider [phone] Reason for Visit * Reason Onset Date Comments TCM 03/22/2022 Encounter Details Date Type Department Care Team (Late st Contact Info) Description 03/22/2022 Telephone [facility] Medical Group Multispecialty Care - [place] [address] [address] [place] [address] Pankaj Rosenberg MD [address] [place] [address] 157 [place] [address] TCM Social History Tobacco Use [...] on file Legal Sex Male 2:58 PM DELIVERY CONSULTANT Gender Identity Male 07/13/2021 5:19 AM DELIVERY CONSULTANT Sexual Orientation Straight 07/13/2021 5: 19 AM DELIVERY CONSULTANT documented as of this encounter Progress Notes * Isela Daily MA - 03/22/2022 4:20 PM CST LM for patient to call us back about being discharged from the hospital VERY CONSULTANT documented in this encounter Plan of Treatment Upcoming Encounters Date Type Department Care Team (Late st Contact Info) Description 05/15/2024 3:30 PM DELIVERY CONSULTANT Appointment [facility] [place] [address] Pankaj Rosenberg MD [address] [place] [address] 05/25/2024 12:45 PM DELIVERY CONSULTANT Office Visit [facility] Physical Therapy [address] [place] [address] Pankaj Rosenberg MD [address] [place] [address] Maya Magaña, [place] [address] 05/30/2024 3:40 PM DELIVERY CONSULTANT Office Visit [facility] Medical [facility] Multispecialty Care - [place] [address] [place] [address] Pankaj Rosenberg MD [facility] [address] [address] 06/20/2024 3:40 PM DELIVERY CONSULTANT Telemedicine [facility] Medical [facility] Multispecialty Care - [place] [address] [address] [place] [address] Pankaj Rosenberg MD [address] [place] [address] 06/21/2024 1:00 PM DELIVERY CONSULTANT Office Visit [facility] Medical Group Orthopedic & Sports Medicine - [address] [place] [address] Jose Ratliff MD [address] [place] [address] [place] [address] 03/27/2025 1:00 PM DELIVERY CONSULTANT Office Visit [facility] Medical Group Multispecialty Care - [facility] [address] [facility] [address] [place] [address] Bob Oneal MD [address] [facility] [address] [place] [address] [place] [address] documented as of this encounter Visit Diagnoses Not on filedocumented in this encounter Additional Health Concerns Assessment Noted Time PHQ-9 Depression Total Score: 0 08/01/19 22 2:12 PM CDT documented as of this encounter Care Teams Brass Finisher Relationship Specialty Start Date End Date Pankaj Rosenberg MD [address] [address] PCP - General INTERNAL MEDICINE 06/15/21 documented as of this encounter
--- OUTSIDE RECORDS SUMMARY | 2024-05-13 11:23 | XMS_ITS | Encounter Summary ---
Author Organization [facility] Address [address] [place] [address]. [place], [place] [address] [place] [address] Care Team Providers Care Sharepoint Application Architect Name Role Phone Pankaj Rosenberg MD Primary Care Provider [phone] Reason for Visit * Reason Onset Date Comments Orders 03/25/2022 Encounter Details Date Type Department Care Team (Late st Contact Info) Description 03/25/2022 Telephone [facility] Medical Group Multispecialty Care - [place] [address] [address] [place] [address] Pankaj Rosenberg MD [address] [place] [address] 157 [place] [address] Orders Social History Tobacco Use [...] on file Legal Sex Male 2:58 PM CHEESE FACTORY WORKER Gender Identity Male 07/13/2021 5:19 AM CHEESE FACTORY WORKER Sexual Orientation Straight 07/13/2021 5: 19 AM CHEESE FACTORY WORKER documented as of this encounter Progress Notes * Pankaj Rosenberg MD - 03/25/2022 8:33 AM CST I received order request from [facility] respiratory care for patient CPAP supplies. Forms filled and faxed to . Pankaj Rosenberg MD Internal Medicine [place]. SE FACTORY WORKER documented in this encounter Plan of Treatment Upcoming Encounters Date Type Department Care Team (Late st Contact Info) Description 05/15/2024 3:30 PM CHEESE FACTORY WORKER Appointment [facility] [place] [address] Pankaj Rosenberg MD [address] [place] [address] 05/25/2024 12:45 PM CHEESE FACTORY WORKER Office Visit [facility] Physical Therapy [address] [place] [address] Pankaj Rosenberg MD [address] [place] [address] Maya Magaña, [place] [address] 05/30/2024 3:40 PM CHEESE FACTORY WORKER [facility] [place] [address] [place] [address] Pankaj Rosenberg MD [address] [place] [address] 06/20/2024 3:40 PM CHEESE FACTORY WORKER Telemedicine [facility] - [place] [address] [place] [address] Pankaj Rosenberg MD [facility] [place] [address] 06/21/2024 1:00 PM CHEESE FACTORY WORKER Office Visit [facility] Orthopedic & Sports Medicine - [place] [address] [place] [address] Jose Ratliff MD [address] [address] [place] [address] 03/27/2025 1:00 PM CHEESE FACTORY WORKER Office Visit [facility] Multispecialty Care - [facility] [address] [facility] [place] [address] Bob Oneal MD [address] [facility] [place] [address] [place] [address] documented as of this encounter Visit Diagnoses Not on filedocumented in this encounter Additional Health Concerns Assessment Noted Time PHQ-9 Depression Total Score: 0 08/01/19 22 2:12 PM CDT documented as of this encounter Care Teams Sharepoint Application Architect Relationship Specialty Start Date End Date Pankaj Rosenberg MD [address] [address] PCP - General INTERNAL MEDICINE 06/15/21 documented as of this encounter
--- OUTSIDE RECORDS SUMMARY | 2024-05-13 11:23 | XMS_ITS | Encounter Summary ---
Author Organization [facility] Address [address] [place] [address]. [place], [place] [address] [place] [address] Care Team Providers Care Bait Tier Name Role Phone Pankaj Rosenberg MD Primary Care Provider [phone] Encounter Details Date Type Department Care Team [...] on file Legal Sex Male 2:58 PM HORSEBACK RIDING INSTRUCTOR Gender Identity Male 07/13/2021 5:19 AM HORSEBACK RIDING INSTRUCTOR Sexual Orientation Straight 07/13/2021 5: 19 AM HORSEBACK RIDING INSTRUCTOR COVID-19 Exposure Response Date Recorded In the last 10 days, have yo u been in contact with someone who was confirmed or suspected to have Coronavirus/COVID-19? No / Unsure 03/26/2022 10:17 AM HORSEBACK RIDING INSTRUCTOR documented as of this encounter Plan of Treatment Upcoming Encounters Date Type Department Care Team (Late st Contact Info) Description 05/15/2024 3:30 PM HORSEBACK RIDING INSTRUCTOR Appointment [facility] [place] [address] Pankaj Rosenberg MD [address] [place] [address] 157 [place] [address] 05/25/2024 12:45 PM HORSEBACK RIDING INSTRUCTOR Office Visit [facility] Physical Therapy [facility] [address] [address] Pankaj Rosenberg MD [address] [address] Maya Magaña, [place] [address] 05/30/2024 3:40 PM HORSEBACK RIDING INSTRUCTOR Office Visit [facility] Medical [facility] Multispecialty [facility] - [place] [address] [address] [place] [address] Pankaj Rosenberg MD [address] [address] 06/20/2024 3:40 PM HORSEBACK RIDING INSTRUCTOR Telemedicine [facility] Medical [facility] Multispecialty [facility] - [place] [address] [address] [place] [address] Pankaj Rosenberg MD [address] [address] 06/21/2024 1:00 PM HORSEBACK RIDING INSTRUCTOR Office Visit [facility] Medical Group Orthopedic & Sports Medicine - [place] [address] [place] [address] Jose Ratliff MD [address] [address] [place] [address] 03/27/2025 1:00 PM HORSEBACK RIDING INSTRUCTOR Office Visit [facility] Medical Group Multispecialty Care - [facility] [address] [facility] [address] [place] [address] Bob Oneal MD 3 [facility] [address] [place] [address] documented as of this encounter Visit Diagnoses Not on filedocumented in this encounter Additional Health Concerns Assessment Noted Time PHQ-9 Depression Total Score: 0 08/01/19 22 2:12 PM CDT documented as of this encounter Care Teams Bait Tier Relationship Specialty Start Date End Date Pankaj Rosenberg MD [address] [address] PCP - General INTERNAL MEDICINE 06/15/21 documented as of this encounter
--- OUTSIDE RECORDS SUMMARY | 2024-05-13 11:23 | XMS_ITS | Encounter Summary ---
Author Organization [facility] Address [address] [place] [address]. [place], [place] [address] [place] [address] Care Team Providers Care Bag Making Machine Operator Name Role Phone Pankaj Rosenberg MD Primary Care Provider [phone] Encounter Details Date Type Department Care Team [...] on file Legal Sex Male 2:58 PM SEED SORTER Gender Identity Male 07/13/2021 5:19 AM SEED SORTER Sexual Orientation Straight 07/13/2021 5: 19 AM SEED SORTER COVID-19 Exposure Response Date Recorded In the last 10 days, have yo u been in contact with someone who was confirmed or suspected to have Coronavirus/COVID-19? No / Unsure 03/26/2022 10:17 AM SEED SORTER documented as of this encounter Plan of Treatment Upcoming Encounters Date Type Department Care Team (Late st Contact Info) Description 05/15/2024 3:30 PM SEED SORTER Appointment [facility] [place] [address] Pankaj Rosenberg MD [address] [place] [address] 157 [place] [address] 05/25/2024 12:45 PM SEED SORTER Office Visit [facility] Physical Therapy Count includes the [facility] [address] [address] Pankaj Rosenberg MD [address] [address] Maya Magaña, [place] [address] 05/30/2024 3:40 PM SEED SORTER Office Visit [facility] Multispecialty [facility] - [place] [address] [address] [place] [address] Pankaj Rosenberg MD [address] [address] 06/20/2024 3:40 PM SEED SORTER Telemedicine [facility] Multispecialty [facility] - [place] [address] [address] [place] [address] Pankaj Rosenberg MD [address] [address] 06/21/2024 1:00 PM SEED SORTER Office Visit [facility] Medical Group Orthopedic & Sports Medicine - [place] [address] [place] [address] Jose Ratliff MD [address] [address] [place] [address] 03/27/2025 1:00 PM SEED SORTER Office Visit [facility] Medical Group Multispecialty Care - [facility] 3 [facility] [place] [address] Bob Oneal MD 3 [facility] 5000 [place] [address] documented as of this encounter Visit Diagnoses Not on filedocumented in this encounter Additional Health Concerns Assessment Noted Time PHQ-9 Depression Total Score: 0 08/01/19 22 2:12 PM CDT documented as of this encounter Care Teams Bag Making Machine Operator Relationship Specialty Start Date End Date Pankaj Rosenberg MD [address] [address] PCP - General INTERNAL MEDICINE 06/15/21 documented as of this encounter
--- OUTSIDE RECORDS SUMMARY | 2024-05-13 11:23 | XMS_ITS | Encounter Summary ---
Author Organization [facility] Address [address] [place] [address]. [place], [place] [address] [place] [address] Care Team Providers Care Senior Account Clerk Name Role Phone Pankaj Rosenberg MD Primary Care Provider [phone] Reason for Visit * Reason Onset Date Comments Error 04/01/2022 Encounter Details Date Type Department Care Team (Late st Contact Info) Description 04/01/2022 Telephone [facility] Medical Group Multispecialty Care - [place] [address] [address] [place], [place] [address] Pankaj Rosenberg MD [address] [place] [address] 157 [place] [address] Error Social History Tobacco Use [...] on file Legal Sex Male 2:58 PM ARC CUTTER PLASMA ARC Gender Identity Male 07/13/2021 5:19 AM ARC CUTTER PLASMA ARC Sexual Orientation Straight 07/13/2021 5: 19 AM ARC CUTTER PLASMA ARC COVID-19 Exposure Response Date Recorded In the last 10 days, have yo u been in contact with someone who was confirmed or suspected to have Coronavirus/COVID-19? No / Unsure 03/26/2022 10:17 AM ARC CUTTER PLASMA ARC documented as of this encounter Progress Notes * Pankaj Rosenberg MD - 04/01/2022 10:07 AM CST error CUTTER PLASMA ARC documented in this encounter Plan of Treatment Upcoming Encounters Date Type Department Care Team (Late st Contact Info) Description 05/15/2024 3:30 PM ARC CUTTER PLASMA ARC Appointment [facility] [place] [address] Pankaj Rosenberg MD [address] [place] [address] 05/25/2024 12:45 PM ARC CUTTER PLASMA ARC Office Visit [facility] Physical Therapy [address] [place] [address] Pankaj Rosenberg MD [address] [place] [address] Maya Magaña, [place] [address] 05/30/2024 3:40 PM ARC CUTTER PLASMA ARC Office Visit [facility] [place] [address] [place] [address] [place] [address] [place] [address] 06/20/2024 3:40 PM ARC CUTTER PLASMA ARC Telemedicine [facility] - [place] [address] [address] [place] [address] Pankaj Rosenberg MD [address] [address] 06/21/2024 1:00 PM ARC CUTTER PLASMA ARC Office Visit [facility] Orthopedic & Sports Medicine - [place] [address] [place] [address] Jose Ratliff MD [address] [place] [address] [place] [address] 03/27/2025 1:00 PM ARC CUTTER PLASMA ARC Office Visit [facility] Multispecialty Care - [facility] 3 [facility] [address] [place] [address] Bob Oneal MD [facility] [address] [place] [address] documented as of this encounter Visit Diagnoses Not on filedocumented in this encounter Additional Health Concerns Assessment Noted Time PHQ-9 Depression Total Score: 0 08/01/19 2:12 PM CDT documented as of this encounter Care Teams Senior Account Clerk Relationship Specialty Start Date End Date Pankaj Rosenberg MD [address] [address] PCP - General INTERNAL MEDICINE 06/15/21 documented as of this encounter
--- OUTSIDE RECORDS SUMMARY | 2024-05-13 11:23 | XMS_ITS | Encounter Summary ---
Author Organization [facility] Address [address] [place] [address]. [place], [place] [address] [place] [address] Care Team Providers Care Cook Vacuum Kettle Name Role Phone Pankaj Rosenberg MD Primary Care Provider [phone] Encounter Details Date Type Department Care Team (Latest Contact Info) Description 04/28/2022 - 04/28/2022 11:59 PM DAIRY HUSBANDRY WORKER Hospital Encounter [facility] [address] [place] [address] Pankaj Rosenberg MD [address] [address] Discharge Disposition: Home or Self [...] on file Legal Sex Male 2:58 PM DAIRY HUSBANDRY WORKER Gender Identity Male 07/13/2021 5:19 AM DAIRY HUSBANDRY WORKER Sexual Orientation Straight 07/13/2021 5: 19 AM DAIRY HUSBANDRY WORKER COVID-19 Exposure Response Date Recorded In the last 10 days, have yo u been in contact with someone who was confirmed or suspected to have Coronavirus/COVID-19? No / Unsure 04/28/2022 7:22 AM DAIRY HUSBANDRY WORKER documented as of this encounter Medications at Time of Discharge Blood Glucose Monitoring Suppl (Armune BioScienceTOUCH VERIO REFLECT) w/Device Kit 1 Units by Does not apply route 2 (two) times daily. 09/16/2021 CPAP DEVICE, DME,Indications:KARRIE (obstructive sleep apnea) Use daily when sleeping or taking a nap. 1 Device 08/21/2021 Lancets (Armune BioScienceTOUCH DELICA PLUS [id number]) [facility] USE 1 LANCET TO PRICK FINGER TWICE DAILY BEFORE TESTING 09/16/2021 TRUEplus Lancets 33G Misc 09/16/2021 Alcohol Swabs (ALCOHOL WIPES) 70 % Pads USE 1 SWAB TO CLEAN SKIN TWICE DAILY BEFORE TESTING 09/16/2021 3 amLODIPine (NORVASC) 10 MG tabletIndications:Hy pertension associated with type 2 diabetes mellitus ([facility]),Essential hypertension, benign Take 1 tablet [...] pertension associated with type 2 diabetes mellitus ([facility]/HCC),Essential hypertension, benign Take 1 tablet [...] perlipidemia due to type 2 diabetes mellitus ([facility]),Mixed hyperlipidemia Take 1 tablet (40 mg total) by mouth nightly at bedtime. 90 tablet 1 04/06/2022 3 SITagliptin (JANUVIA) 25 mg TabIndications:Type 2 diabetes mellitus with hyperglycemia, without long-term current use of insulin ([facility]) Take 1 tablet (25 [...] st Contact Info) Description 05/15/2024 3:30 PM DAIRY HUSBANDRY WORKER Appointment [facility] [place] [address] Pankaj Rosenberg MD [address] [place] [address] 05/25/2024 12:45 PM DAIRY HUSBANDRY WORKER Office Visit [facility] Physical Therapy [address] [place] [address] Pankaj Rosenberg MD [address] [place] [address] Maya Magaña, [place] [address] 05/30/2024 3:40 PM DAIRY HUSBANDRY WORKER Office Visit [facility] Multispecialty Care - [place] [address] [address] [place] [address] Pankaj Rosenberg MD [address] [address] 06/20/2024 3:40 PM DAIRY HUSBANDRY WORKER [facility] - [place] [address] [address] [place] [address] Pankaj Rosenberg MD [facility] [address] [address] 06/21/2024 1:00 PM DAIRY HUSBANDRY WORKER Office Visit [facility] Orthopedic & Sports Medicine - [place] [address] [place] [address] Jose Ratliff MD [address] [address] [place] [address] 03/27/2025 1:00 PM DAIRY HUSBANDRY WORKER Office Visit [facility] Multispecialty [facility] 3 [facility], [address] [place] [address] Bob Oneal MD 3 [facility] [address] [place] [address] documented as of this encounter Visit Diagnoses Not on filedocumented in this encounter Additional Health Concerns Assessment Noted Time PHQ-9 Depression Total Score: 0 08/01/19 22 2:12 PM CDT documented as of this encounter Care Teams Cook Vacuum Kettle Relationship Specialty Start Date End Date Pankaj Rosenberg MD [address] [place] [address] PCP - General INTERNAL MEDICINE 06/15/21 documented as of this encounter
--- OUTSIDE RECORDS SUMMARY | 2024-05-13 11:23 | XMS_ITS | Encounter Summary ---
Author Organization [facility] Address [address] [place] [address]. [place], [place] [address] [place] [address] Care Team Providers Care Checker Loader Name Role Phone Pankaj Rosenberg MD Primary Care Provider [phone] Reason for Visit * Reason Onset Date Comments Referral 03/19/2022 Encounter Details Date Type Department Care Team (Late st Contact Info) Description 03/19/2022 Telephone [facility] Medical Group Multispecialty Care - [place] [address] [address] [place], [place] [address] Pankaj Rosenberg MD [address] [place] [address] 157 [place] [address] Referral Social History Tobacco Use [...] on file Legal Sex Male 2:58 PM IS PROJECT MANAGER Gender Identity Male 07/13/2021 5:19 AM IS PROJECT MANAGER Sexual Orientation Straight 07/13/2021 5: 19 AM IS PROJECT MANAGER documented as of this encounter Progress Notes * Pankaj Rosenberg MD - 03/19/2022 11:16 PM CDT Please follow up on patient to see if he is discharged from hospital and schedule for hospital follow up thanks. * Pankaj Rosenberg MD - 03/19/2022 11:14 PM CDT Patient is currently on admission at [facility]. Patient was admitted on 03/17/2022 after presenting with a1 day history of worsening periumbilical abdominal pain with nausea. Currently on admission. We will follow-up once patient is discharged for TCM visit. Concerns for small bowel obstruction. documented in this encounter Plan of Treatment Upcoming Encounters Date Type Department Care Team (Late st Contact Info) Description 05/15/2024 3:30 PM IS PROJECT MANAGER Appointment [facility] [place] [address] Pankaj Rosenberg MD [address] [place] [address] 05/25/2024 12:45 PM IS PROJECT MANAGER Office Visit [facility] Physical Therapy [address] [place] [address] Pankaj Rosenberg MD [address] [place] [address] Maya Magaña, [place] [address] 05/30/2024 3:40 PM IS PROJECT MANAGER Office Visit [facility] Medical Group Multispecialty Care - [place] [address] [address] [place] [address] Pankaj Rosenberg MD [facility] [address] [address] 06/20/2024 3:40 PM IS PROJECT MANAGER Telemedicine [facility] Multispecialty Care - [address] [place] [address] Pankaj Rosenberg MD 1188 [facility] 157 [place] [address] 06/21/2024 1:00 PM IS PROJECT MANAGER Office Visit [facility] Orthopedic & Sports Medicine - [place] [address] [place] [address] Jose Ratliff MD 670 [facility] [address] [place] [address] 03/27/2025 1:00 PM IS PROJECT MANAGER [facility] 3 [facility] [address] [place] [address] Bob Oneal MD 3 [facility] [address] [place] [address] documented as of this encounter Visit Diagnoses Not on filedocumented in this encounter Additional Health Concerns Assessment Noted Time PHQ-9 Depression Total Score: 0 08/01/19 22 2:12 PM CDT documented as of this encounter Care Teams Checker Loader Relationship Specialty Start Date End Date Pankaj Rosenberg MD [address] [place] [address] PCP - General INTERNAL MEDICINE 06/15/21 documented as of this encounter
--- OUTSIDE RECORDS SUMMARY | 2024-05-13 11:23 | XMS_ITS | Encounter Summary ---
Author Organization [facility] Address [address] [place] [address]. [place], [place] [address] [place] [address] Care Team Providers Care Urban Gardening Specialist Name Role Phone Pankaj Rosenberg MD Primary Care Provider [phone] Encounter Details Date Type Department Care Team [...] file Legal Sex Male 2:58 PM COMPUTER SCIENCE PROFESSOR Gender Identity Male 07/13/2021 5:19 AM COMPUTER SCIENCE PROFESSOR Sexual Orientation Straight 07/13/2021 5: 19 AM COMPUTER SCIENCE PROFESSOR COVID-19 Exposure Response Date Recorded In the last 10 days, have yo u been in contact with someone who was confirmed or suspected to have Coronavirus/COVID-19? No / Unsure 04/06/2022 11:04 AM COMPUTER SCIENCE PROFESSOR documented as of this encounter Plan of Treatment Upcoming Encounters Date Type Department Care Team (Late st Contact Info) Description 05/15/2024 3:30 PM COMPUTER SCIENCE PROFESSOR [facility]ointment [facility] ONE [facility] [place] [address] Pankaj Rosenberg MD [address] [address] [phone] 05/25/2024 12:45 PM COMPUTER SCIENCE PROFESSOR Office Visit [facility] Physical Therapy [facility] [address] Pankaj Rosenberg MD 1188 [facility] 157 [place] [address] Maya [place]aña, [place] [address] 05/30/2024 3:40 PM COMPUTER SCIENCE PROFESSOR Office Visit [facility] Multispecialty [facility] [place] [address] [place] [address] [address] [place] [address] Pankaj Rosenberg MD [address] [address] 06/20/2024 3:40 PM COMPUTER SCIENCE PROFESSOR [facility] [place] [address] [address] [place] [address] Pankaj Rosenberg MD [address] [address] 06/21/2024 1:00 PM COMPUTER SCIENCE PROFESSOR Office Visit [facility] Medical Group Orthopedic & Sports Medicine - [place] [address] [place] [address] Jose Ratliff MD [address] [address] [place] [address] 03/27/2025 1:00 PM COMPUTER SCIENCE PROFESSOR Office Visit [facility] Medical [facility] Multispecialty Care - [facility] [address] [facility] [place] [phone] Bob Oneal MD [address] [place] [address] documented as of this encounter Visit Diagnoses Not on filedocumented in this encounter Additional Health Concerns Assessment Noted Time PHQ-9 Depression Total Score: 0 08/01/19 2:12 PM CDT documented as of this encounter Care Teams Urban Gardening Specialist Relationship Specialty Start Date End Date Pankaj Rosenberg MD [address] [address] PCP - General INTERNAL MEDICINE 06/15/21 documented as of this encounter
--- OUTSIDE RECORDS SUMMARY | 2024-05-13 11:23 | XMS_ITS | Encounter Summary ---
Author Organization [facility] Address [address] [place] [address]. [place], [place] [address] [place] [address] Care Team Providers Care Cloth Spreader Name Role Phone Pankaj Rosenberg MD Primary Care Provider [phone] Reason for Referral * Consultation/Treatment (Routine) - Closed Specialty Diagnoses / Procedures Referred By Horacio espinoza Referred To Contact GENERAL SURGERY Diagnoses Gallbladder polyp Procedures OFFICE/OUTPT VISIT,NEW,LEVL III OFFICE/OUTPT VISIT,NEW,LEVL IV OFFICE/OUTPT VISIT,NEW,LEVL V OFFICE/OUTPT VISIT,EST,LEVL III OFFICE/OUTPT VISIT,EST,LEVL IV OFFICE/OUTPT VISIT,EST,LEVL V Bernardo Wallace MD Phone: tel: fax: [facility] [address] [place] [address] Phone: tel: fax: Referral ID Status Reason Start Date Expiration Date V isits Requested Visits Authorized [id number] Closed Specialty Services 04/29/2022 04/29/2023 99 99 STANT BASKETBALL COACH Reason for Visit * Reason Comments Gallbladder Polyp on gallbladder - Dr. Oneal sent here for it to be removed- had to delay due to having a bowel obstruction with a resection Encounter Details Date Type Department Care Team (Late st Contact Info) Description 04/29/2022 10:40 AM ASSISTANT BASKETBALL COACH Office Visit [facility] Medical [facility] General Surgery [address] [place] [address] [place] [address] [facility] [address] [place] [address] Gallbladder (Polyp on gallbladder- Dr. [...] file Legal Sex Male 2:58 PM ASSISTANT BASKETBALL COACH Gender Identity Male 07/13/2021 5:19 AM ASSISTANT BASKETBALL COACH Sexual Orientation Straight 07/13/2021 5: 19 AM ASSISTANT BASKETBALL COACH COVID-19 Exposure Response Date Recorded In the last 10 days, have yo u been in contact with someone who was confirmed or suspected to have Coronavirus/COVID-19? No / Unsure 04/29/2022 10:26 AM ASSISTANT BASKETBALL COACH documented as of this encounter Last Filed Vital Signs Vital Sign Reading Time Taken Comments Blood Pressure 151/96 04/29/2022 10:31 AM ASSISTANT BASKETBALL COACH just took his bpmeds Pulse 87 04/29/2022 10:31 AM ASSISTANT BASKETBALL COACH Temperature 36.8 ??C (98.3 ??F) 04/29/2022 1 0:31 AM ASSISTANT BASKETBALL COACH Respiratory Rate 20 04/29/2022 10:3 1 AM ASSISTANT BASKETBALL COACH Oxygen Saturation 98% 04/29/2022 10: 31 AM ASSISTANT BASKETBALL COACH Inhaled Oxygen Concentration - - Weight 120.6 kg (265 lb 12.8 oz) 04/29/2022 10:31 AM ASSISTANT BASKETBALL COACH Height 180.3 cm (5' 11 ) 04/29/2022 10: 31 AM ASSISTANT BASKETBALL COACH Body Mass Index 37.07 04/29/2022 10:31 AM ASSISTANT BASKETBALL COACH documented in this encounter Progress Notes * [...] bowel Resection for small bowel obstruction' At [facility]. Surgeon at the time elected not to remove his gallbladder. He now presents for gallbladder polyps. Surgeon at the time of his laparotomy Told him he though he could get it out laparoscopically. Gallbladder ultrasound 12/17/20 showed a stable 0.6 cm polyp , US on 08/18/21 Showed polyp had increased in size to 7.8 x 6.[address] 8.[address] Oneal ( GI) [facility] needed to be removed. ROS: Review [...] Rfl: 0 ??? Lancets (ONETOUCH DELICA PLUS [id number]) [facility], USE 1 LANCET [...] POLYPECTOMY performed by Bob Oneal MD at [facility] OR ??? SEPTOPLASTY ??? SMALL INTESTINE SURGERY [...] recommend patient return to his surgeon at [facility]. Reviewed and updated this visit by provider: Libby WALLACE Referring Provider: Pankaj Rosenberg MD PCP: PANKAJ ROSENBERG MD STANT BASKETBALL COACH documented in this encounter Plan of Treatment Upcoming Encounters Date Type Department Care Team (Late st Contact Info) Description 05/15/2024 3:30 PM ASSISTANT BASKETBALL COACH Appointment [facility] [place] [address] Pankaj Rosenberg MD [address] [address] 05/25/2024 12:45 PM ASSISTANT BASKETBALL COACH Office Visit [facility] Physical Therapy [address] [address] Pankaj Rosenberg MD [address] [address] Maya Magaña, [place] [address] 05/30/2024 3:40 PM ASSISTANT BASKETBALL COACH Office Visit [facility] Medical [facility] Multispecialty Care - [place] [address] [address] [place] [address] Pankaj Rosenberg MD [address] [address] 06/20/2024 3:40 PM ASSISTANT BASKETBALL COACH [facility] [place] [address] [address] [place] [address] Pankaj Rosenberg MD [address] [address] 06/21/2024 1:00 PM ASSISTANT BASKETBALL COACH Office Visit [facility] Medical Group Orthopedic & Sports Medicine - [place] [address] [place] [address] Jose Ratliff MD [address] [address] 03/27/2025 1:00 PM ASSISTANT BASKETBALL COACH Office Visit [facility] Medical [facility] Multispecialty Care - [facility] 3 [facility] [address] [place] [phone] Bob Oneal MD 3 [facility] [address] [place] [address] Scheduled Referrals Name Type Priority Associated Diagnoses Orde r Schedule Ambulatory referral to General Surgery (OTHER) Referral Routine Gallbladder polyp Ordered: 04/29/2022 documented as of this encounter Visit Diagnoses Diagnosis Gallbladder polyp- Primary Cholesterolosis of gallbladder documented in this encounter Additional Health Concerns Assessment Noted Time PHQ-9 Depression Total Score: 0 08/01/19 2:12 PM CDT documented as of this encounter Care Teams Cloth Spreader Relationship Specialty Start Date End Date Pankaj Rosenberg MD [facility]8 [address] [address] PCP - General INTERNAL MEDICINE 06/15/21 documented as of this encounter
--- OUTSIDE RECORDS SUMMARY | 2024-05-13 11:23 | XMS_ITS | Encounter Summary ---
Author Organization [facility] Address [address] [place] [address]. [place], [place] [address] [address] Care Team Providers Care Alum Operator Name Role Phone Pankaj Rosenberg MD Primary Care Provider [phone] Encounter Details Date Type Department Care Team [...] on file Legal Sex Male 2:58 PM PRECISION OPTICAL GOODS WORKER Gender Identity Male 07/13/2021 5:19 AM PRECISION OPTICAL GOODS WORKER Sexual Orientation Straight 07/13/2021 5: 19 AM PRECISION OPTICAL GOODS WORKER COVID-19 Exposure Response Date Recorded In the last 10 days, have yo u been in contact with someone who was confirmed or suspected to have Coronavirus/COVID-19? No / Unsure 03/26/2022 10:17 AM PRECISION OPTICAL GOODS WORKER documented as of this encounter Plan of Treatment Upcoming Encounters Date Type Department Care Team (Late st Contact Info) Description 05/15/2024 3:30 PM PRECISION OPTICAL GOODS WORKER [facility]ointment [facility] [place] [address] Pankaj Rosenberg MD [address] [phone] 05/25/2024 12:45 PM PRECISION OPTICAL GOODS WORKER Office Visit [facility] Physical Therapy [facility] [address] Pankaj Rosenberg MD 1188 [facility] 157 [place] [address] Maya [place]aña, [place] [address] 05/30/2024 3:40 PM PRECISION OPTICAL GOODS WORKER Office Visit [facility] Multispecialty [facility] [place] [address] [address] [address] [address] [place] [address] Pankaj Rosenberg MD [address] [address] 06/20/2024 3:40 PM PRECISION OPTICAL GOODS WORKER [facility] [place] [address] [address] [place] [address] Pankaj Rosenberg MD [address] [address] 06/21/2024 1:00 PM PRECISION OPTICAL GOODS WORKER Office Visit [facility] Medical Group Orthopedic & Sports Medicine - [place] [address] [place] [address] Jose Ratliff MD [address] [address] [place] [address] 03/27/2025 1:00 PM PRECISION OPTICAL GOODS WORKER Office Visit [facility] Medical [facility] Multispecialty Care - [facility] 3 [facility] [address] [place] [phone] Bob Oneal MD [address] [place] [address] documented as of this encounter Visit Diagnoses Not on filedocumented in this encounter Additional Health Concerns Assessment Noted Time PHQ-9 Depression Total Score: 0 08/01/19 2:12 PM CDT documented as of this encounter Care Teams Alum Operator Relationship Specialty Start Date End Date Pankaj Rosenberg MD [address] [address] PCP - General INTERNAL MEDICINE 06/15/21 documented as of this encounter
--- OUTSIDE RECORDS SUMMARY | 2024-05-13 11:23 | XMS_ITS | Encounter Summary ---
Author Organization [facility] Address [address] [place] [address]. [place], [place] [address] [place] [address] Care Team Providers Care Manager State Name Role Phone Pankaj Rosenberg MD Primary Care Provider [phone] Reason for Visit * Reason Comments Obstructive Sleep Apnea CPAP * Consultation (Routine) - Closed Specialty Diagnoses / Procedures Referred By Contact Referred To Contact SLEEP & RESPIRATORY CARE Diagnoses KARRIE (obstructive sleep apnea) Pankaj Rosenberg MD [address] [place] [address] Phone: tel: fax: [facility] Medical Group [facility] [place] [address] Phone: tel: fax: Referral ID Status Reason Start Date Expiration Date V isits Requested Visits Authorized [id number] Closed Specialty Services 08/21/2021 09/20/2022 99 99 Encounter Details Date Type Department Care Team (Late st Contact Info) Description 03/26/2022 10:20 AM STENCILING MACHINE TENDER Office Visit [facility] Medical Group [facility] [address] Milton Andino MD [address] [place] [address] Obstructive Sleep Apnea (CPAP) Social History Tobacco [...] on file Legal Sex Male 2:58 PM STENCILING MACHINE TENDER Gender Identity Male 07/13/2021 5:19 AM STENCILING MACHINE TENDER Sexual Orientation Straight 07/13/2021 5: 19 AM STENCILING MACHINE TENDER COVID-19 Exposure Response Date Recorded In the last 10 days, have yo u been in contact with someone who was confirmed or suspected to have Coronavirus/COVID-19? No / Unsure 03/26/2022 10:17 AM STENCILING MACHINE TENDER documented as of this encounter Last Filed Vital Signs Vital Sign Reading Time Taken Comments Blood Pressure 127/83 03/26/2022 10:20 AM STENCILING MACHINE TENDER Pulse 87 03/26/2022 10:20 AM STENCILING MACHINE TENDER Temperature 37.4 ??C (99.4 ??F) 03/26/2022 10:[address] Respiratory Rate 12 03/26/2022 10:20 AM STENCILING MACHINE TENDER Oxygen Saturation 98% 03/26/2022 10:20 AM STENCILING MACHINE TENDER Inhaled Oxygen Concentration - - Weight 117.9 kg (260 lb) 03/26/2022 10:20 AM STENCILING MACHINE TENDER Height 180.3 cm (5' 11 ) 03/26/2022 10:20 AM STENCILING MACHINE TENDER Body Mass Index 36.26 03/26/2022 10:20 AM STENCILING MACHINE TENDER documented in this encounter Patient Instructions * Patient Instructions* Milton Andion MD - 03/26/2022 10:20 AM STENCILING MACHINE TENDER - Continue using CPAP every single night - Use distilled water - Change the mask, straps, tubing every 3 to 6 months - Work on weight loss - Follow-up in 1 year, sooner if needed CILING MACHINE TENDER documented in this encounter Progress Notes * Milton Andino MD - 03/26/2022 10:20 AM CST [facility] PULMONARY MEDICINE History Chief Complaint Patient presents [...] POLYPECTOMY performed by Bob Oneal MD at [facility] OR ??? SEPTOPLASTY ??? SMALL INTESTINE SURGERY [...] MCG/ACT nasal inhaler ??? TRUEplus Lancets 33G [facility] ??? Blood Glucose Monitoring Suppl (ONETOUCH VERIO REFLECT) w/Device Kit 1 Units by Does not apply route 2 (two) times daily. ??? Lancets (ONETOUCH DELICA PLUS [id number]) [facility] USE 1 LANCET TO PRICK FINGER TWICE [...] Return in about 1 year (around 03/26/2023). Milton Andino MD CILING MACHINE TENDER documented in this encounter Plan of Treatment Upcoming Encounters Date Type Department Care Team (Late st Contact Info) Description 05/15/2024 3:30 PM STENCILING MACHINE TENDER Appointment [facility] [place] [address] Pankaj Rosenberg MD [address] [address] 05/25/2024 12:45 PM STENCILING MACHINE TENDER Office Visit [facility] Physical Therapy [facility] [address] Pankaj Rosenberg MD [address] [address] Maya Magaña, [place] [address] 05/30/2024 3:40 PM STENCILING MACHINE TENDER Office Visit [facility] Medical [facility] Multispecialty [facility] [place] [address] [address] [place] [address] Pankaj Rosenberg MD [facility] [address] [address] 06/20/2024 3:40 PM STENCILING MACHINE TENDER Telemedicine [facility] Medical [facility] Multispecialty [facility] [place] [address] [address] [place] [address] Pankaj Rosenberg MD [address] [address] 06/21/2024 1:00 PM STENCILING MACHINE TENDER Office Visit [facility] Medical Group Orthopedic & Sports Medicine - [place] [address] [place] [address] Jose Ratliff MD [address] [address] [place] [address] 03/27/2025 1:00 PM STENCILING MACHINE TENDER Office Visit [facility] Medical [facility] Multispecialty Care - [facility] 3 [facility] [address] [place] [address] Bob Oneal MD 3 [facility] [address] [place] [address] documented as of this encounter Visit Diagnoses [...] as of this encounter Care Teams Manager State Relationship Specialty Start Date End Date Pankaj Rosenberg MD 1188 [facility] [address] [place] [address] PCP - General INTERNAL MEDICINE 06/15/21 documented as of this encounter
--- OUTSIDE RECORDS SUMMARY | 2024-05-13 11:23 | XMS_ITS | Encounter Summary ---
Author Organization [facility] Address [address] [place] [address]. [place] [address] [place] [address] Care Team Providers Care Instructor Product Inspection Name Role Phone Pankaj Rosenberg MD Primary Care Provider [phone] Reason for Visit * Reason Onset Date Comments Information 05/18/2022 Encounter Details Date Type Department Care Team (Late st Contact Info) Description 05/18/2022 Telephone [facility] Medical Group Multispecialty Care - [facility] 3 [facility] [address] [place] [phone] Milton Andino MD 3 [facility] [address] [place] [address] Information Social History Tobacco Use Types Packs/Day [...] on file Legal Sex Male 2:58 PM PARTS CATALOGUER Gender Identity Male 07/13/2021 5:19 AM PARTS CATALOGUER Sexual Orientation Straight 07/13/2021 5: 19 AM PARTS CATALOGUER COVID-19 Exposure Response Date Recorded In the last 10 days, have yo u been in contact with someone who was confirmed or suspected to have Coronavirus/COVID-19? No / Unsure 04/29/2022 10:26 AM PARTS CATALOGUER documented as of this encounter Progress Notes * Malia Ghosh MA - 05/18/2022 3:14 PM CST Called and LM informing Gloria patient is using and benefiting from CPAP. She is to call back with a fax number if she is needing the note from 03-26-2022 faxed S CATALOGUER * Artur Cruz - 05/18/2022 10:20 AM CST Gloria from [employer] called today wanting to know if CPap is benefiting the pt with his sleep apnea pls call and discuss [phone], if she is not available pls leav a detailed msg. S CATALOGUER documented in this encounter Plan of Treatment Upcoming Encounters Date Type Department Care Team (Late st Contact Info) Description 05/15/2024 3:30 PM PARTS CATALOGUER Appointment [place] [place] [address] [place] [address] [place] [id number] 05/25/2024 12:45 PM PARTS CATALOGUER Office Visit [facility] Physical Therapy [address] [place] [phone] Pankaj Rosenberg MD [address] [phone] Maya Magaña, [place] [address] 05/30/2024 3:40 PM PARTS CATALOGUER Office Visit [facility] Multispecialty Care - [place] [address] [address] [place] [address] Pankaj Rosenberg MD [address] [address] 06/20/2024 3:40 PM PARTS CATALOGUER Telemedicine [facility] Multispecialty [facility] [place] [address] [address] [place] [address] Pankaj Rosenberg MD [address] [address] 06/21/2024 1:00 PM PARTS CATALOGUER Office Visit [facility] Orthopedic & Sports Medicine - [place] [address] [place] [address] Jose Ratliff MD [address] [address] [place] [address] 03/27/2025 1:00 PM PARTS CATALOGUER Office Visit [facility] Multispecialty Care - [facility] 3 [facility], [address] [place] [address] Bob Oneal MD 3 [facility] [address] [place] [address] documented as of this encounter Visit Diagnoses Not on filedocumented in this encounter Additional Health Concerns Assessment Noted Time PHQ-9 Depression Total Score: 0 08/01/19 2:12 PM CDT documented as of this encounter Care Teams Instructor Product Inspection Relationship Specialty Start Date End Date Pankaj Rosenberg MD [address] [place] [address] PCP - General INTERNAL MEDICINE 06/15/21 documented as of this encounter
--- OUTSIDE RECORDS SUMMARY | 2024-05-13 11:23 | XMS_ITS | Encounter Summary ---
Author Organization [facility] Address [address] [place] [address]. [place], [place] [address] [place] [address] Care Team Providers Care Doping Supervisor Name Role Phone Pankaj Rosenberg MD Primary Care Provider [phone] Reason for Visit * Reason Onset Date Comments Follow Up Call 03/18/2022 Encounter Details Date Type Department Care Team (Late st Contact Info) Description 03/18/2022 Telephone [facility] Multispecialty Care - [place] [address] [address] [place], [place] [address] Pankaj Rosenberg MD [address] [place] [address] 157 [place] [address] Follow Up Call Social History [...] file Legal Sex Male 2:58 PM HEAD MACHINIST Gender Identity Male 07/13/2021 5:19 AM HEAD MACHINIST Sexual Orientation Straight 07/13/2021 5: 19 AM HEAD MACHINIST documented as of this encounter Progress Notes * Sanaz Cherry MA - 03/18/2022 10:56 AM CDT Called [facility] and was advised pt has not been discharged. Will follow up tomorrow if not otherwise notified * Pankaj Rosenberg MD - 03/18/2022 9:38 AM CDT I am notified patient is admitted to the hospital [facility]. Please call and find out if patient is discharged and schedule for a TCM visit is applicable. ?? Thanks ?? Pankaj Rosenberg MD Internal Medicine [facility]. ?? documented in this encounter Plan of Treatment Upcoming Encounters Date Type Department Care Team (Late st Contact Info) Description 05/15/2024 3:30 PM HEAD MACHINIST Appointment [facility] [place] [address] Pankaj Rosenberg MD [address] [place] [address] 05/25/2024 12:45 PM HEAD MACHINIST Office [facility] Physical Therapy [address] [place] [address] Pankaj Rosenberg MD [facility] [address] Maya Magaña, [place] [address] 05/30/2024 3:40 PM HEAD MACHINIST Office Visit [facility] Multispecialty Care - [place] [address] [address] [place] [address] Pankaj Rosenberg MD [address] [place] [address] [place] [address] 06/20/2024 3:40 PM HEAD MACHINIST Telemedicine [facility] Multispecialty [facility] - [place] [address] [place] [address] [address] [place] [address] Pankaj Rosenberg MD 1188 [facility] 157 [place] [address] 06/21/2024 1:00 PM HEAD MACHINIST Office Visit [facility] Orthopedic & Sports Medicine - [place] [address] [place] [address] Jose Ratliff MD [address] [place] [address] [place] [address] 03/27/2025 1:00 PM HEAD MACHINIST Office Visit [facility] Multispecialty [facility] 3 [facility] [address] [place] [address] Bob Oneal MD 3 [facility] [address] [place] [address] documented as of this encounter Visit Diagnoses Not on filedocumented in this encounter Additional Health Concerns Assessment Noted Time PHQ-9 Depression Total Score: 0 08/01/19 22 2:12 PM CDT documented as of this encounter Care Teams Doping Supervisor Relationship Specialty Start Date End Date Pankaj Rosenberg MD [address] [place] [address] 157 [place] [address] PCP - General INTERNAL MEDICINE 06/15/21 documented as of this encounter
--- OUTSIDE RECORDS SUMMARY | 2024-05-13 11:23 | XMS_ITS | Encounter Summary ---
Author Organization [facility] Address [address] [place] [address]. [place], [place] [address] [place] [address] Care Team Providers Care Mining Plant Operator Name Role Phone Pankaj Rosenberg MD Primary Care Provider [phone] Reason for Visit * Reason Onset Date Comments Prior Authorization 06/17/2022 Encounter Details Date Type Department Care Team (Late st Contact Info) Description 06/17/2022 Telephone [facility] Medical Group Multispecialty Care - [place] [address] [address] [place] [address] Pankaj Rosenberg MD [address] [place] [address] [address] [place], [place] [id number] Prior Authorization Social History Tobacco Use Types [...] on file Legal Sex Male 2:58 PM INVERFORM MACHINE OPERATOR Gender Identity Male 07/13/2021 5:19 AM INVERFORM MACHINE OPERATOR Sexual Orientation Straight 07/13/2021 5: 19 AM INVERFORM MACHINE OPERATOR COVID-19 Exposure Response Date Recorded In the last 10 days, have yo u been in contact with someone who was confirmed or suspected to have Coronavirus/COVID-19? No / Unsure 06/15/2022 1:57 PM INVERFORM MACHINE OPERATOR documented as of this encounter Progress Notes * Rocio Marie MA - 06/22/2022 10:15 AM CST Pt called back and states he still has enough Omeprazole for at least another month. Pt states he will notify our office if he cannot afford to pay for it out of pocket since his insurance does not cover it RFORM MACHINE OPERATOR * Rocio Marie MA - 06/21/2022 3:53 PM CST Called and lm on vm for pt to call our office RFORM MACHINE OPERATOR * Rocio Marie MA - 06/17/2022 7:14 AM CST Pharmacy sent fax stating that the Omeprazole it is not covered due to the patients age Pt's insurance has changed to Medicaid this year RFORM MACHINE OPERATOR RFORM MACHINE OPERATOR documented in this encounter Plan of Treatment Upcoming Encounters Date Type Department Care Team (Late st Contact Info) Description 05/15/2024 3:30 PM INVERFORM MACHINE OPERATOR Appointment [facility] [place] [address] Pankaj Rosenberg MD [address] [place] [address] 05/25/2024 12:45 PM INVERFORM MACHINE OPERATOR Office Visit [facility] Physical Therapy [address] [place] [address] Pankaj Rosenberg MD [address] [place] [address] Maya Magaña, [place] [address] 05/30/2024 3:40 PM INVERFORM MACHINE OPERATOR Office [facility] Multispecialty Care - [place] [address] [address] [place] [address] Pankaj Rosenberg MD [address] [place] [address] 06/20/2024 3:40 PM INVERFORM MACHINE OPERATOR [facility] - [place] [address] [address] [place] [address] Pankaj Rosenberg MD [address] [place] [address] 06/21/2024 1:00 PM INVERFORM MACHINE OPERATOR Office Visit [facility] Orthopedic & Sports Medicine - [place] [address] [place] [address] Jose Ratliff MD [address] [place] [address] [place] [address] 03/27/2025 1:00 PM INVERFORM MACHINE OPERATOR Office Visit [facility] Multispecialty Care - [facility] 3 [facility], [address] [place] [address] Bob Oneal MD 3 [facility] [address] [place] [address] documented as of this encounter Visit Diagnoses Not on filedocumented in this encounter Additional Health Concerns Assessment Noted Time PHQ-9 Depression Total Score: 0 08/01/19 22 2:12 PM CDT documented as of this encounter Care Teams Mining Plant Operator Relationship Specialty Start Date End Date Pankaj Rosenberg MD [address] [place] [address] PCP - General INTERNAL MEDICINE 06/15/21 documented as of this encounter
--- OUTSIDE RECORDS SUMMARY | 2024-05-13 11:23 | XMS_ITS | Encounter Summary ---
Author Organization [facility] Address [address] [place] [address]. [place], [place] [address] [place] [address] Care Team Providers Care Cloth Printer Name Role Phone Pankaj Rosenberg MD Primary Care Provider [phone] Reason for Visit * Reason Comments Sleep Study (SCAN) Encounter Details Date Type Department Care Team ([facility] Contact Info) Description 03/25/2022 Scan HEALTH [...] on file Legal Sex Male 2:58 PM AUTOMATED MANUFACTURING INSTRUCTOR Gender Identity Male 07/13/2021 5:19 AM AUTOMATED MANUFACTURING INSTRUCTOR Sexual Orientation Straight 07/13/2021 5: 19 AM AUTOMATED MANUFACTURING INSTRUCTOR COVID-19 Exposure Response Date Recorded In the last 10 days, have yo u been in contact with someone who was confirmed or suspected to have Coronavirus/COVID-19? No / Unsure 03/26/2022 10:17 AM AUTOMATED MANUFACTURING INSTRUCTOR documented as of this encounter Plan of Treatment Upcoming Encounters Date Type Department Care Team ([facility] Contact Info) Description 05/15/2024 3:30 PM AUTOMATED MANUFACTURING INSTRUCTOR [facility] [place] [address] Pankaj Rosenberg MD [address] [address] 05/25/2024 12:45 PM AUTOMATED MANUFACTURING INSTRUCTOR Office Visit [facility] Physical Therapy [address] [place] [address] Pankaj Rosenberg MD [address] [address] Maya Magaña, [place] [address] 05/30/2024 3:40 PM AUTOMATED MANUFACTURING INSTRUCTOR Office Visit [facility] Medical [facility] Multispecialty Care - [place] [address] [address] [place] [address] Pankaj Rosenberg MD [facility] [address] [address] 06/20/2024 3:40 PM AUTOMATED MANUFACTURING INSTRUCTOR Telemedicine [facility] - [place] [address] [address] [place] [address] Pankaj Rosenberg MD [facility] [address] [address] 06/21/2024 1:00 PM AUTOMATED MANUFACTURING INSTRUCTOR Office Visit [facility] Medical Group Orthopedic & Sports Medicine - [place] [address] [place] [address] Jose Ratliff MD [address] [address] [place] [address] 03/27/2025 1:00 PM AUTOMATED MANUFACTURING INSTRUCTOR Office Visit [facility] Medical Group Multispecialty Care - [facility] 3 [facility] [address] [place] [address] Bob Oneal MD 3 [facility] [address] [place] [address] documented as of this encounter Procedures Procedure [...] as of this encounter Care Teams Cloth Printer Relationship Specialty Start Date End Date Pankaj Rosenberg MD 1188 [facility] [address] [place] [address] PCP - General INTERNAL MEDICINE 06/15/21 documented as of this encounter
--- OUTSIDE RECORDS SUMMARY | 2024-05-13 11:24 | XMS_ITS | Encounter Summary ---
Author Organization [facility] Address [address] [place] [address]. [place], [place] [address] [place] [address] Care Team Providers Care Clinical Research Nurse Coordinator Name Role Phone Pnakaj Rosenberg MD Primary Care Provider Encounter Details [...] file Legal Sex Male 2:58 PM BULK TRUCK DRIVER Gender Identity Male 07/13/2021 5:19 AM BULK TRUCK DRIVER Sexual Orientation Straight 07/13/2021 5: 19 AM BULK TRUCK DRIVER COVID-19 Exposure Response Date Recorded In the last 10 days, have yo u been in contact with someone who was confirmed or suspected to have Coronavirus/COVID-19? No / Unsure 09/28/2021 1:40 PM CDT documented as of this encounter Plan of Treatment Upcoming Encounters Date Type Department Care Team (Late st Contact Info) Description 05/15/2024 3:30 PM BULK TRUCK DRIVER Appointment [facility] [place], [place] [address] Pankaj Rosenberg MD [address] [address] 05/25/2024 12:45 PM BULK TRUCK DRIVER Office Visit [facility] Physical Therapy [facility] 157 [place] [address] Pankaj Rosenberg MD 1188 [facility] 157 [place] [address] Maya Magaña, [place] [address] 05/30/2024 3:40 PM BULK TRUCK DRIVER Office Visit [facility] Medical [facility] Multispecialty [facility] - [place] [address] [facility] [address] [place] [address] Pankaj Rosenberg MD [address] [address] 06/20/2024 3:40 PM BULK TRUCK DRIVER Telemedicine [facility] - [address] [place] [address] Pankaj Rosenberg MD [address] [address] 06/21/2024 1:00 PM BULK TRUCK DRIVER Office Visit [facility] Medical Group Orthopedic & Sports Medicine - [place] [address] [place] [address] Joes Ratliff MD [address] [address] [place] [address] 03/27/2025 1:00 PM BULK TRUCK DRIVER Office Visit [facility] Medical [facility] Multispecialty [facility] - [facility] 3 [facility], [address] [place] [phone] Bob Oneal MD [address] [place] [address] documented as of this encounter Visit Diagnoses Not on filedocumented in this encounter Additional Health Concerns Assessment Noted Time PHQ-9 Depression Total Score: 0 08/01/19 22 2:12 PM CDT documented as of this encounter Care Teams Clinical Research Nurse Coordinator Relationship Specialty Start Date End Date Pankaj Rosenberg MD [address] [address] PCP - General INTERNAL MEDICINE 06/15/21 documented as of this encounter
--- OUTSIDE RECORDS SUMMARY | 2024-05-13 11:24 | XMS_ITS | Encounter Summary ---
Author Organization [facility] Address [address] [place] [address]. [place], [place] [address] [place] [address] Care Team Providers Care Hi Low Truck Driver Name Role Phone Pankaj Rosenberg MD Primary Care Provider [phone] Reason for Visit * Reason Onset Date Comments Follow Up Call 03/17/2022 Encounter Details Date Type Department Care Team (Late st Contact Info) Description 03/17/2022 Telephone [facility] Medical Group Multispecialty Care - [place] [address] [address] [place], [place] [address] Pankaj Rosenberg MD [address] [place] [address] 157 [place] [address] Follow Up Call Social History [...] on file Legal Sex Male 2:58 PM FILTER PRESS TENDER Gender Identity Male 07/13/2021 5:19 AM FILTER PRESS TENDER Sexual Orientation Straight 07/13/2021 5: 19 AM FILTER PRESS TENDER documented as of this encounter Progress Notes * Pankaj Rosenberg MD - 03/17/2022 10:48 AM CDT I am notified patient is admitted to the [place] [facility]. Please call and find out if patient is discharged and schedule for a TCM visit is applicable. Thanks Pankaj Rosenberg MD Internal Medicine [facility]. documented in this encounter Plan of Treatment Upcoming Encounters Date Type Department Care Team (Late st Contact Info) Description 05/15/2024 3:30 PM FILTER PRESS TENDER Appointment [facility] [place] [address] Pankaj Rosenberg MD [address] [place] [address] 05/25/2024 12:45 PM FILTER PRESS TENDER Office [facility] Physical Therapy [address] [place] [address] Pankaj Rosenberg MD [address] [place] [address] Maya Magaña, [place] [address] 05/30/2024 3:40 PM FILTER PRESS TENDER [facility] - [place] [address] [place] [address] Pankaj Rosenberg MD [facility] [address] [address] 06/20/2024 3:40 PM FILTER PRESS TENDER Telemedicine [facility] - [place] [address] [address] [place] [address] Pankaj Rosenberg MD [address] [address] 06/21/2024 1:00 PM FILTER PRESS TENDER Office Visit [facility] Orthopedic & Sports Medicine - [place] [address] [place] [address] Jose Ratliff MD [address] [place] [address] [place] [address] 03/27/2025 1:00 PM FILTER PRESS TENDER Office Visit [facility] Multispecialty Care - [facility] 3 [facility] [address] [place] [address] Bob Oneal MD 3 [facility] [address] [place] [address] documented as of this encounter Visit Diagnoses Not on filedocumented in this encounter Additional Health Concerns Assessment Noted Time PHQ-9 Depression Total Score: 0 08/01/19 22 2:12 PM CDT documented as of this encounter Care Teams Hi Low Truck Driver Relationship Specialty Start Date End Date Pankja Rosenberg MD [address] [address] PCP - General INTERNAL MEDICINE 06/15/21 documented as of this encounter
--- OUTSIDE RECORDS SUMMARY | 2024-05-13 11:24 | XMS_ITS | Encounter Summary ---
Author Organization [facility] Address [address] [place] [address]. [place], [place] [address] [place] [address] Care Team Providers Care Photogrammetric Technician Name Role Phone Pankaj Rosenberg MD Primary Care Provider [phone] Reason for Visit * Reason Onset Date Comments Record Request 02/09/2022 Encounter Details Date Type Department Care Team (Late st Contact Info) Description 02/09/2022 Telephone [facility] Medical Group Multispecialty Care - [place] [address] [address] [place], [place] [address] Pankaj Rosenberg MD [address] [place] [address] 157 [place], [place] [address] Record Request Social History Tobacco Use Types [...] on file Legal Sex Male 2:58 PM PHYSICIST LIGHT AND OPTICS Gender Identity Male 07/13/2021 5:19 AM PHYSICIST LIGHT AND OPTICS Sexual Orientation Straight 07/13/2021 5: 19 AM PHYSICIST LIGHT AND OPTICS documented as of this encounter Progress Notes * Sanaz Cherry MA - 02/09/2022 2:57 PM CDT Rcvd fax from [employer] requesting most recent progress note regarding sleep apnea . Pt is using this company for his cpap & supplies 11/18/21 progress note was faxed for continuation ofcare documented in this encounter Plan of Treatment Upcoming Encounters Date Type Department Care Team (Late st Contact Info) Description 05/15/2024 3:30 PM PHYSICIST LIGHT AND OPTICS Appointment [facility] [place] [address] Pankaj Rosenberg MD [address] [place] [address] 05/25/2024 12:45 PM PHYSICIST LIGHT AND OPTICS Office Visit [facility] Physical Therapy [address] [place] [address] Pankaj Rosenberg MD [address] [place] [address] Maya Magaña, [place] [address] 05/30/2024 3:40 PM PHYSICIST LIGHT AND OPTICS [facility] [address] [address] Pankaj Rosenberg MD [address] [place] [address] 06/20/2024 3:40 PM PHYSICIST LIGHT AND OPTICS Telemedicine [facility] - [place] [address] [address] [place] [address] Pankaj Rosenberg MD [address] [address] 06/21/2024 1:00 PM PHYSICIST LIGHT AND OPTICS Office Visit [facility] Orthopedic & Sports Medicine - [place] [address] [place] [address] Jose Ratliff MD [address] [place] [address] [place] [address] 03/27/2025 1:00 PM PHYSICIST LIGHT AND OPTICS Office Visit [facility] Multispecialty Care - [facility] 3 [facility] [address] [place] [address] Bob Oneal MD 3 [facility] [address] [place] [address] documented as of this encounter Visit Diagnoses Not on filedocumented in this encounter Additional Health Concerns Assessment Noted Time PHQ-9 Depression Total Score: 0 08/01/19 22 2:12 PM CDT documented as of this encounter Care Teams Photogrammetric Technician Relationship Specialty Start Date End Date Pankaj Rosenberg MD [address] [address] PCP - General INTERNAL MEDICINE 06/15/21 documented as of this encounter
--- OUTSIDE RECORDS SUMMARY | 2024-05-13 11:24 | XMS_ITS | Encounter Summary ---
Author Organization [facility] Address [address] [place] [address]. [place], [place] [address] [place] [address] Care Team Providers Care Accredited Farm Manager Name Role Phone Pankaj Rosenberg MD Primary Care Provider [phone] Reason for Visit * Reason Comments Diabetes GERD Hypertension Sleep Apnea Pt has been called r egarding cpap & on wtg list for machine Hyperlipidemia Encounter Details Date Type Department Care Team (Latest Contact Info) Description 11/18/2021 2:30 PM CDT Office Visit [facility] Medical Group Multispecialty Care - [address] [place] [address] Pankaj Rosenberg MD [address] [place] [address] 157 [place] [address] Diabetes; GERD; Hypertension; Sleep Apnea [...] file Legal Sex Male 2:58 PM AGRICULTURAL EQUIPMENT SALESPERSON Gender Identity Male 07/13/2021 5:19 AM AGRICULTURAL EQUIPMENT SALESPERSON Sexual Orientation Straight 07/13/2021 5: 19 AM AGRICULTURAL EQUIPMENT SALESPERSON COVID-19 Exposure Response Date Recorded In the [...] your diabetic eye exam done. [facility] # [phone]. documented in this encounter Progress Notes * [...] eventually follow up with Dr Castellanos at [facility] at some point in time to get [...] POLYPECTOMY performed by Bob Oneal MD at [facility] OR ??? NONE ??? [...] hyperglycemia, without long-term current use of insulin ([facility]) E11.65 250.00 TYPE 2 DIABETES MELLITUS A1C [...] hyperglycemia, without long-term current use of insulin ([facility]) - controlled with A1C of 5.7% - [...] was at least in part performed using ethority and there may be some inherent flaws in this transmission repairer due to the nature of this program. Pankaj Rosenberg MD Internal Medicine [facility]. documented in this encounter Plan of Treatment Upcoming Encounters Date Type Department Care Team (Late st Contact Info) Description 05/15/2024 3:30 PM AGRICULTURAL EQUIPMENT [place] [address] Pankaj Rosenberg MD [address] [place] [address] 05/25/2024 12:45 PM AGRICULTURAL EQUIPMENT SALESPERSON Office Visit [facility] Physical Therapy [address] [place] [address] Pankaj Rosenberg MD [facility] [address] Maya Magaña, [place] [address] 05/30/2024 3:40 PM AGRICULTURAL EQUIPMENT SALESPERSON Office Visit [facility] Multispecialty Care - [place] [address] [address] [place] [address] Pankaj Rosenberg MD [address] [address] 06/20/2024 3:40 PM AGRICULTURAL EQUIPMENT SALESPERSON [facility] [place] [address] [address] [place] [address] Pankaj Rosenberg MD [address] [address] 06/21/2024 1:00 PM AGRICULTURAL EQUIPMENT SALESPERSON Office Visit [facility] - [place] [address] [place] [address] Jose Ratliff MD 670 [facility] [address] [place] [address] 03/27/2025 1:00 PM AGRICULTURAL EQUIPMENT SALESPERSON Office Visit [facility] Multispecialty Care - [facility] [address] [facility], [address] [place] [address] Bob Oneal MD 3 [facility] [address] [place] [address] documented as of this encounter Procedures Procedure Name Priority Date/Time Associated Diagnosis Comments COMPREHENSIVE METABOLIC PANEL Routine 11/18/2021 3:13 PM CDT Type 2 diabetes mellitus with hyperglycemia, without long-term current use of insulin ([facility] HHS/HCC) Essential hypertension, benign HEMOGLOBIN, GLYCOSYLATED Routine 11/18/2021 Type 2 diabetes mellitus with hyperglycemia, without long-term current use of insulin ([facility]/HCC HHS/HCC) documented in this encounter Results * (ABNORMAL) COMPREHENSIVE METABOLIC PANEL (11/18/2021 3:13 PM CDT) [facility] SODIUM S/P/B 137 136 - 145 MMOL/L 11/18/2021 8:13 PM CDT -[facility] POTASSIUM S/P/B 4.1 3.5 - 5.1 MMOL/L 11/18/2021 8:13 PM CDT [facility] CHLORIDE S/P/B 102 98 - 107 MMOL/L 11/18/2021 8:13 PM CDT [facility] CO2 28.1 21 - 32 MMOL/L 11/18/2021 8:13 PM CDT -[facility] GLUCOSE 150(H) 70 - 99 MG/DL 11/18/2021 8:13 PM CDT [facility] BUN 14 7 - 18 MG/DL 11/18/2021 8:13 PM CDT [facility] CREATININE S/P/B 0.84 0.70 - 1.30 MG/DL 11/18/2021 8:13 PM CDT [facility] CALCIUM S/P/B 9.4 8.4 - 10.5 MG/DL 11/18/2021 8:13 PM CDT -[facility] BILIRUBIN TOTAL S/P/B 0.7 0.2 - 1.0 MG/DL 11/18/2021 8:13 PM CDT [facility] ALKALINE PHOSPHATASE S/P/B 119(H) 45 - 115 U/L 11/18/2021 8:13 PM CDT [facility] AST 15 15 - 37 U/L 11/18/2021 8:13 PM CDT [facility] ALT 56 16 - 63 U/L 11/18/2021 8:13 PM CDT [facility] TOTAL PROTEIN S/P/B 7.9 6.4 - 8.2 G/DL 11/18/2021 8:13 PM CDT [facility] ALBUMIN S/P/B 4.0 3.4 - 5.0 G/DL 11/18/2021 8:[address] [facility] ANION GAP 6.9 5 - 15 MMOL/L 11/18/2021 8:13 PM CDT [facility] Comment:REFERENCE RANGE NOT ESTABLISHED OSMOLALITY (CALC) 287 MOSM/KG 022 8:13 PM CDT [facility] Comment:REFERENCE RANGE NOT ESTABLISHED GFR ESTIMATE >90 >90 ML/MIN/1. 73 M2 11/18/2021 8:13 PM CDT [facility] GFR NOTES GFR REFERENCE S: 11/18/2021 8:13 PM CDT [facility] Comment: THE ESTIMATED GFR IS CALCULATED USING [...] Rosenberg MD LABORATORY Final Result [facility] [address] [place] [address], * A1C (BACK OFFICE) (11/18/2021) HGB A1C 5.7 % [address], [place] 11/18/2021 Pankaj Rosenberg MD LABORATORY Final Result -[address], [address] [place] [address], documented in this encounter Visit Diagnoses Diagnosis Type 2 diabetes mellitus with hyperglycemia, without long-term current use of insulin ([facility]/HCC [facility])- Primary Essential hypertension, benign Mixed hyperlipidemia Gastroesophageal [...] documented as of this encounter Care Teams Accredited Farm Manager Relationship Specialty Start Date End Date Pankaj Rosenberg MD [address] [facility] [address] [place] [address] PCP - General INTERNAL MEDICINE 06/15/21 documented as of this encounter
--- OUTSIDE RECORDS SUMMARY | 2024-05-13 11:24 | XMS_ITS | Encounter Summary ---
Author Organization [facility] Address [address] [place] [address]. [place], [place] [address] [place] [address] Care Team Providers Care Bellhop Service Captain Name Role Phone Pankaj Rosenberg MD Primary Care Provider Reason for Visit * Reason Onset Date Comments Follow Up Call 09/24/2021 Encounter Details Date Type Department Care Team (Late st Contact Info) Description 09/24/2021 Telephone [facility] Medical Group Multispecialty Care - [place] [address] [address] [place], [place] [address] Pankaj Rosenberg MD [address] [place] [address] 157 [place] [address] Follow Up Call Social History [...] on file Legal Sex Male 2:58 PM MELTING OPERATOR Gender Identity Male 07/13/2021 5:19 AM MELTING OPERATOR Sexual Orientation Straight 07/13/2021 5: 19 AM MELTING OPERATOR COVID-19 Exposure Response Date Recorded In [...] questions answered. Pankaj Rosenberg MD Internal Medicine [facility] Medical [facility]. documented in this encounter Plan of Treatment Upcoming Encounters Date Type Department Care Team (Late st Contact Info) Description 05/15/2024 3:30 PM MELTING [place] [address] Pankaj Rosenberg MD [address] [place] [address] 05/25/2024 12:45 PM MELTING OPERATOR Office Visit [facility] Physical Therapy [address] [place] [address] Pankaj Rosenberg MD [facility]8 [address] [address] Maya Magaña, [place] [address] 05/30/2024 3:40 PM MELTING OPERATOR Office Visit [facility] Multispecialty Care - [address] [place] [address] Pankaj Rosenberg MD [address] [address] 06/20/2024 3:40 PM MELTING OPERATOR [facility] - [place] [address] [address] [place] [address] Pankaj Rosenberg MD [address] [address] 06/21/2024 1:00 PM MELTING OPERATOR Office Visit [facility] Orthopedic & Sports Medicine - [place] [address] [place] [address] Jose Ratliff MD 670 [facility] [address] [place] [address] 03/27/2025 1:00 PM MELTING OPERATOR Office Visit [facility] Multispecialty [facility] - [facility] [address] [facility], [address] [place] [address] Bob Oneal MD 3 [facility] [address] [place] [address] documented as of this encounter Visit Diagnoses Not on filedocumented in this encounter Additional Health Concerns Assessment Noted Time PHQ-9 Depression Total Score: 0 08/01/19 22 2:12 PM CDT documented as of this encounter Care Teams Bellhop Service Captain Relationship Specialty Start Date End Date Pankaj Rosenberg MD [address] [place] [address] PCP - General INTERNAL MEDICINE 06/15/21 documented as of this encounter
--- OUTSIDE RECORDS SUMMARY | 2024-05-13 11:24 | XMS_ITS | Encounter Summary ---
Author Organization [facility] Address [address] [place] [address]. [place], [place] [address] [place] [address] Care Team Providers Care Fabric Worker Supervisor Name Role Phone Pankaj Rosenberg MD Primary Care Provider [phone] Reason for Visit * Reason Comments Dilated Eye Exam (SCAN) Encounter Details Date Type Department Care Team ([facility] Contact Info) Description 02/24/2022 Scan [...] on file Legal Sex Male 2:58 PM PAINTING TRADES WORKER Gender Identity Male 07/13/2021 5:19 AM PAINTING TRADES WORKER Sexual Orientation Straight 07/13/2021 5: 19 AM PAINTING TRADES WORKER COVID-19 Exposure Response Date Recorded In the last 10 days, have yo u been in contact with someone who was confirmed or suspected to have Coronavirus/COVID-19? No / Unsure 04/06/2022 11:04 AM PAINTING TRADES WORKER documented as of this encounter Plan of Treatment Upcoming Encounters Date Type Department Care Team ([facility] Contact Info) Description 05/15/2024 3:30 PM PAINTING TRADES WORKER [facility] [place] [address] Pankaj Rosenberg MD [address] [address] 05/25/2024 12:45 PM PAINTING TRADES WORKER Office Visit [facility] Physical Therapy [address] [place] [address] Pankaj Rosenberg MD [address] [address] Maya Magaña, [place] [address] 05/30/2024 3:40 PM PAINTING TRADES WORKER Office Visit [facility] Medical [facility] Multispecialty Care - [place] [address] [address] [place] [address] Pankaj Rosenberg MD [address] [address] 06/20/2024 3:40 PM PAINTING TRADES WORKER Telemedicine [facility] - [address] [place] [address] Pankaj Rosenberg MD [facility] [address] [address] 06/21/2024 1:00 PM PAINTING TRADES WORKER Office Visit [facility] Medical Group Orthopedic & Sports Medicine - [place] [address] [place] [address] Jose Ratliff MD [address] [address] [place] [address] 03/27/2025 1:00 PM PAINTING TRADES WORKER Office Visit [facility] Medical Group Multispecialty Care - [address] [place] [address] Bob Oneal MD [address] [facility] [address] [place] [address] documented as of this encounter Procedures Procedure Name Priority Date/Time Associated Diagnosis Comments DIABETIC RETINOPATHY EXAM (NEGATIVE)(SCAN ORDER) Routine 02/24/2022 documented in this encounter Results * DIABETIC RETINOPATHY EXAM (NEGATIVE)(SCAN) (02/24/2022) [facility] Scanned SCANNING Final Resu lt [facility] documented in this encounter Visit Diagnoses Not on filedocumented in this encounter Additional Health Concerns Assessment Noted Time PHQ-9 Depression Total Score: 0 08/01/19 22 2:12 PM CDT documented as of this encounter Care Teams Fabric Worker Supervisor Relationship Specialty Start Date End Date Pankaj Rosenberg MD 1188 [facility] [address] [place] [address] PCP - General INTERNAL MEDICINE 06/15/21 documented as of this encounter
--- OUTSIDE RECORDS SUMMARY | 2024-05-13 11:24 | XMS_ITS | Encounter Summary ---
Author Organization [facility] Address [address] [place] [address]. [place], [place] [address] [place] [address] Care Team Providers Care Order Planner Name Role Phone Pankaj Rosenberg MD Primary Care Provider [phone] Reason for Visit * Reason Onset Date Comments Reschedule 11/09/2021 Encounter Details Date Type Department Care Team (Late st Contact Info) Description 11/09/2021 Telephone [facility] Medical Group Multispecialty Care - [place] [address] [address] [address] [place], [place] [address] Pankaj Rosenberg MD [address] [place] [address] 157 [place] [address] Reschedule Social History Tobacco Use [...] file Legal Sex Male 2:58 PM SENIOR SOFTWARE QUALITY ANALYST Gender Identity Male 07/13/2021 5:19 AM SENIOR SOFTWARE QUALITY ANALYST Sexual Orientation Straight 07/13/2021 5: 19 AM SENIOR SOFTWARE QUALITY ANALYST documented as of this encounter Progress Notes * Roberto Moffett - 11/09/2021 10:10 AM CDT Patient called and rescheduled appointment for 11/18/21 @ 2:30pm. documented in this encounter Plan of Treatment Upcoming Encounters Date Type Department Care Team (Late st Contact Info) Description 05/15/2024 3:30 PM SENIOR SOFTWARE QUALITY ANALYST Appointment [facility] [place] [address] Pankaj Rosenberg MD [address] [place] [address] 05/25/2024 12:45 PM SENIOR SOFTWARE QUALITY ANALYST Office Visit [facility] Physical Therapy [address] [place] [address] Pankaj Rosenberg MD [address] [place] [address] Maya Magaña, [place] [address] 05/30/2024 3:40 PM SENIOR SOFTWARE QUALITY ANALYST Office Visit [facility] Medical [facility] Multispecialty Care - [address] [address] Pankaj Rosenberg MD [facility] [address] 06/20/2024 3:40 PM SENIOR SOFTWARE QUALITY ANALYST Telemedicine [facility] Multispecialty Care - [place] [address] [address] [place] [address] Pankaj Rosenberg MD [facility] [address] 06/21/2024 1:00 PM SENIOR SOFTWARE QUALITY ANALYST Office Visit [facility] Medical Group Orthopedic & Sports Medicine - [address] [place] [address] Jose Ratliff MD [address] [address] [place] [address] 03/27/2025 1:00 PM SENIOR SOFTWARE QUALITY ANALYST Office Visit [facility] Medical Group Multispecialty Care - [facility] [address] [facility] [address] [place] [address] Bob Oneal MD [address] [facility] [address] [place] [address] documented as of this encounter Visit Diagnoses Not on filedocumented in this encounter Additional Health Concerns Assessment Noted Time PHQ-9 Depression Total Score: 0 08/01/19 22 2:12 PM CDT documented as of this encounter Care Teams Order Planner Relationship Specialty Start Date End Date Pankaj Rosenberg MD [address] [address] PCP - General INTERNAL MEDICINE 06/15/21 documented as of this encounter
--- OUTSIDE RECORDS SUMMARY | 2024-05-13 11:24 | XMS_ITS | Encounter Summary ---
Author Organization [facility] Address [address] [place] [address]. [place], [place] [address] [place] [address] Care Team Providers Care Macaroni Press Operator Name Role Phone Pankaj Rosenberg MD Primary Care Provider [phone] Reason for Visit * Reason Onset Date Comments Other 12/29/2021 Encounter Details Date Type Department Care Team (Late st Contact Info) Description 12/29/2021 Telephone [facility] Medical Group Multispecialty Care - [place] [address] [address] [place], [place] [address] Pankaj Rosenberg MD [address] [place] [address] 157 [place] [address] Other Social History Tobacco Use [...] on file Legal Sex Male 2:58 PM COLLATERAL ANALYST Gender Identity Male 07/13/2021 5:19 AM COLLATERAL ANALYST Sexual Orientation Straight 07/13/2021 5: 19 AM COLLATERAL ANALYST documented as of this encounter Progress Notes * Roberto Moffett - 12/29/2021 1:37 PM CDT Patient called to notify that he finally received his CPAP machine. documented in this encounter Plan of Treatment Upcoming Encounters Date Type Department Care Team (Late st Contact Info) Description 05/15/2024 3:30 PM COLLATERAL ANALYST Appointment [place] [address] Pankaj Rosenberg MD [address] [place] [address] 05/25/2024 12:45 PM COLLATERAL ANALYST Office Visit [facility] Physical Therapy [address] [place] [address] Pankaj Rosenberg MD [facility] [address] Maya Magaña, [place] [address] 05/30/2024 3:40 PM COLLATERAL ANALYST Office Visit [facility] Medical [facility] Multispecialty Care - [place] [address] [address] [place] [address] Pankaj Rosenberg MD [facility] [address] [address] 06/20/2024 3:40 PM COLLATERAL ANALYST Telemedicine [facility] Medical [facility] Multispecialty Care - [place] [address] [address] [place] [address] Pankaj Rosenberg MD [facility] [address] [address] 06/21/2024 1:00 PM COLLATERAL ANALYST Office Visit [facility] Medical Group Orthopedic & Sports Medicine - [address] [address] Jose Ratliff MD [address] [place] [address] [place] [address] 03/27/2025 1:00 PM COLLATERAL ANALYST Office Visit [facility] Medical Group Multispecialty Care - [facility] [address] [facility] [address] [place] [address] Bob Oneal MD [address] [facility] [address] [place] [address] documented as of this encounter Visit Diagnoses Not on filedocumented in this encounter Additional Health Concerns Assessment Noted Time PHQ-9 Depression Total Score: 0 08/01/19 22 2:12 PM CDT documented as of this encounter Care Teams Macaroni Press Operator Relationship Specialty Start Date End Date Pankaj Rosenberg MD [address] [address] PCP - General INTERNAL MEDICINE 06/15/21 documented as of this encounter
--- OUTSIDE RECORDS SUMMARY | 2024-05-13 11:24 | XMS_ITS | Encounter Summary ---
Author Organization [facility] Address [address] [place] [address]. [place], [place] [address] [place] [address] Care Team Providers Care Conflicts Analyst Name Role Phone Pankaj Rosenberg MD Primary Care Provider [phone] Reason for Visit * Reason Onset Date Comments Follow Up Call 02/08/2022 Encounter Details Date Type Department Care Team (Late st Contact Info) Description 02/08/2022 Telephone [facility] Medical Group Multispecialty Care - [place] [address] [address] [place], [place] [address] Panakj Rosenberg MD [address] [place] [address] 157 [place] [address] Follow Up Call Social History [...] on file Legal Sex Male 2:58 PM POSTPARTUM NURSE Gender Identity Male 07/13/2021 5:19 AM POSTPARTUM NURSE Sexual Orientation Straight 07/13/2021 5: 19 AM POSTPARTUM NURSE documented as of this encounter Progress Notes * Pankaj Rosenberg MD - 02/08/2022 3:27 PM CDT help desk agent transferred call to me regarding: [employer] called and questions answered for patient with regards to when his last visit was. documented in this encounter Plan of Treatment Upcoming Encounters Date Type Department Care Team (Late st Contact Info) Description 05/15/2024 3:30 PM POSTPARTUM NURSE Appointment [facility] [place] [address] Pankaj Rosenberg MD [address] [place] [address] 05/25/2024 12:45 PM POSTPARTUM NURSE Office Visit [facility] Physical Therapy [address] [place] [address] Pankaj Rosenberg MD [address] [place] [address] Maya Magaña, [place] [address] 05/30/2024 3:40 PM POSTPARTUM NURSE Office Visit [facility] Multispecialty Care - [place] [address] [place] [address] Pankaj Rosenberg MD [address] [place] [address] 06/20/2024 3:40 PM POSTPARTUM NURSE [facility] - [place] [address] [place] [address] Pankaj Rosenberg MD [facility]8 [address] [address] 06/21/2024 1:00 PM POSTPARTUM NURSE Office Visit [facility] Orthopedic & Sports Medicine - [place] [address] [place] [address] Jose Ratliff MD [address] [address] [place] [address] 03/27/2025 1:00 PM POSTPARTUM NURSE Office Visit [facility] Multispecialty Care - [facility] [address] [facility] [address] [place] [address] Bob Oneal MD [facility] [address] [place] [address] documented as of this encounter Visit Diagnoses Not on filedocumented in this encounter Additional Health Concerns Assessment Noted Time PHQ-9 Depression Total Score: 0 08/01/19 2:12 PM CDT documented as of this encounter Care Teams Conflicts Analyst Relationship Specialty Start Date End Date Pankaj Rosenberg MD [address] [address] PCP - General INTERNAL MEDICINE 06/15/21 documented as of this encounter
--- OUTSIDE RECORDS SUMMARY | 2024-05-13 11:24 | XMS_ITS | Encounter Summary ---
Author Organization [facility] Address [address] [place] [address]. [place], [place] [address] [place] [address] Care Team Providers Care Machine Washer Name Role Phone Pankaj Rosenberg MD Primary Care Provider [phone] Encounter Details Date Type Department Care Team [...] file Legal Sex Male 2:58 PM ELECTRICAL EQUIPMENT TECHNICIAN Gender Identity Male 07/13/2021 5:19 AM ELECTRICAL EQUIPMENT TECHNICIAN Sexual Orientation Straight 07/13/2021 5: 19 AM ELECTRICAL EQUIPMENT TECHNICIAN COVID-19 Exposure Response Date Recorded In the last 10 days, have yo u been in contact with someone who was confirmed or suspected to have Coronavirus/COVID-19? No / Unsure 11/18/2021 2:18 PM CDT documented as of this encounter Plan of Treatment Upcoming Encounters Date Type Department Care Team (Late st Contact Info) Description 05/15/2024 3:30 PM ELECTRICAL EQUIPMENT TECHNICIAN Appointment [facility] [place], [place] [address] Pankaj Rosenberg MD [address] [address] 05/25/2024 12:45 PM ELECTRICAL EQUIPMENT TECHNICIAN Office Visit [facility] Physical [facility] [address] [place] [address] Pankaj Rosenberg MD 1188 [facility] 157 [place] [address] Maya Magaña, [place] [address] 05/30/2024 3:40 PM ELECTRICAL EQUIPMENT TECHNICIAN Office Visit [facility] Medical [facility] Multispecialty [facility] - [place] [address] [facility] [address] [place] [address] Pankaj Rosenberg MD [address] [address] 06/20/2024 3:40 PM ELECTRICAL EQUIPMENT TECHNICIAN Telemedicine [facility] Medical [facility] - [address] [place] [address] Pankaj Rosenberg MD [address] [address] 06/21/2024 1:00 PM ELECTRICAL EQUIPMENT TECHNICIAN Office Visit [facility] Medical [facility] - [place] [address] [place] [address] Jose Ratliff MD [address] [address] [place] [address] 03/27/2025 1:00 PM ELECTRICAL EQUIPMENT TECHNICIAN Office Visit [facility] Medical [facility] Multispecialty Care - [facility] 3 [facility], [address] [place] [address] Bob Oneal MD [address] [place] [address] documented as of this encounter Visit Diagnoses Not on filedocumented in this encounter Additional Health Concerns Assessment Noted Time PHQ-9 Depression Total Score: 0 08/01/19 22 2:12 PM CDT documented as of this encounter Care Teams Machine Washer Relationship Specialty Start Date End Date Pankaj Rosenberg MD [address] [address] PCP - General INTERNAL MEDICINE 06/15/21 documented as of this encounter
--- OUTSIDE RECORDS SUMMARY | 2024-05-13 11:24 | XMS_ITS | Encounter Summary ---
Author Organization [facility] Address [address] [place] [address]. [place], [place] [address] [place] [address] Care Team Providers Care Plan Examiner Name Role Phone Pankaj Rosenberg MD Primary Care Provider [phone] Encounter Details Date Type Department Care Team [...] on file Legal Sex Male 2:58 PM PLUG MAKING OPERATOR Gender Identity Male 07/13/2021 5:19 AM PLUG MAKING OPERATOR Sexual Orientation Straight 07/13/2021 5: 19 AM PLUG MAKING OPERATOR COVID-19 Exposure Response Date Recorded In the last 10 days, have yo u been in contact with someone who was confirmed or suspected to have Coronavirus/COVID-19? No / Unsure 06/15/2022 1:57 PM PLUG MAKING OPERATOR documented as of this encounter Plan of Treatment Upcoming Encounters Date Type Department Care Team (Late st Contact Info) Description 05/15/2024 3:30 PM PLUG MAKING OPERATOR Appointment [facility] [place] [address] Pankaj Rosenberg MD [address] [address] 05/25/2024 12:45 PM PLUG MAKING OPERATOR Office Visit [facility] Physical Therapy [facility]8 [address] [address] Pankaj Rosenberg MD [address] [address] Maya Magaña, [place] [address] 05/30/2024 3:40 PM PLUG MAKING OPERATOR Office Visit [facility] Medical [facility] [place] [address] [address] [place] [address] Pankaj Rosenberg MD [address] [address] 06/20/2024 3:40 PM PLUG MAKING OPERATOR Telemedicine [facility] [place] [address] [address] [place] [address] Pankaj Rosenberg MD [address] [address] 06/21/2024 1:00 PM PLUG MAKING OPERATOR Office Visit [facility] Medical Group [facility] - [place] [address] [place] [address] Jose Ratliff MD [address] [address] [place] [address] 03/27/2025 1:00 PM PLUG MAKING OPERATOR Office Visit [facility] Medical [facility] Multispecialty Care - [facility] 3 [facility] [address] [place] [address] Bob Oneal MD [address] [address] documented as of this encounter Visit Diagnoses Not on filedocumented in this encounter Additional Health Concerns Assessment Noted Time PHQ-9 Depression Total Score: 0 08/01/19 22 2:12 PM CDT documented as of this encounter Care Teams Plan Examiner Relationship Specialty Start Date End Date Pankaj Rosenberg MD 1188 [facility] 157 [place] [address] PCP - General INTERNAL MEDICINE 06/15/21 documented as of this encounter
--- OUTSIDE RECORDS SUMMARY | 2024-05-13 11:24 | XMS_ITS | Encounter Summary ---
Author Organization [facility] Address [address] [place] [address]. [place], [place] [address] [place] [address] Care Team Providers Care Transcript Evaluator Name Role Phone Pankaj Rosenberg MD Primary Care Provider [phone] Reason for Visit * Reason Comments TCM patient is here for TCM Encounter Details Date Type Department Care Team (Latest Contact Info) Description 09/28/2021 1:50 PM CDT Office Visit [facility] Medical Group Multispecialty Care - [place] [address] [address] [place] [address] Pankaj Rosenberg MD [address] [place] [address] 157 [place], [place] [id number] TCM (patient is here for TCM) Social [...] on file Legal Sex Male 2:58 PM CENTER MEDICAL SPECIALIST Gender Identity Male 07/13/2021 5:19 AM CENTER MEDICAL SPECIALIST Sexual Orientation Straight 07/13/2021 5: 19 AM CENTER MEDICAL SPECIALIST COVID-19 Exposure Response Date Recorded In [...] Where can I learn more? National Cancer Victor http://www.cancer.gov/cancertopics/pdq/supportivecare/gastrointestinalcomplicati ons/Patient/page4 Last Reviewed Date 2020-10-01 Consumer [...] or approved for treating a specific patient. [employer] and its affiliates disclaim any warranty or liability relating to this information or the use thereof. The use of this information is governed by the Terms of Use, available at https://www.hi5.com/en/know/ybckgssn-thupcnhpklgfl-ygatb Copyright Copyright ?? 2021 [employer]. and its affiliates and/or licensors. All rights [...] 2 different hospitals prior to transferring to [facility] for management. He initially was managed nonoperatively [...] complications noted. Pain was managed with Dilaudid RETAIL TEAM LEADER pump which was discontinued on postop day [...] mL,Rfl: 1 ??? Blood Glucose Monitoring Suppl ([employer] VERIO REFLECT) w/Device Kit, 1 Units by Does not applyroute 2 (two) times daily., Disp: , Rfl: ??? cetirizine 5 MG chewable tablet, Chew 5 mg by mouth daily., Disp: , Rfl: ??? CPAP DEVICE, DME,, Use daily when sleeping or taking a nap., Disp: 1 Device, Rfl: 0 ??? Lancets (The Veteran AdvantageTOUCH DELICA PLUS [id number]) [facility], USE 1 [...] Disp: , Rfl: ??? TRUEplus Lancets 33G [facility], , Disp: , Rfl: Current Outpatient Medications [...] a nap. ??? Lancets (ONETOUCH DELICA PLUS [id number]) [facility] USE 1 LANCET TO PRICK FINGER TWICE [...] MCG/ACT nasal inhaler ??? TRUEplus Lancets 33G [facility] No current facility-administered medications on file prior [...] POLYPECTOMY performed by Bob Oneal MD at [facility] OR ??? NONE ??? SEPTOPLASTY ??? SMALL [...] rebound. Hernia: No hernia is present. Comments: [place] in place and wound site dry and [...] long-term current use of insulin ([facility]) - patient currently has advanced [...] week(s) MD Pankaj QUEVEDO MD Internal Medicine [facility] documented in this encounter Plan of Treatment Upcoming Encounters Date Type Department Care Team (Late st Contact Info) Description 05/15/2024 3:30 PM CENTER MEDICAL SPECIALIST Appointment [facility] [place] [address] Pankaj Rosenberg MD [address] [address] 05/25/2024 12:45 PM CENTER MEDICAL SPECIALIST Office Visit [facility] Physical Therapy [address] [place] [address] Pankaj Rosenberg MD [facility]8 [address] [address] Maya Magaña, [place] [address] 05/30/2024 3:40 PM CENTER MEDICAL SPECIALIST Office Visit [facility] Medical [facility] Multispecialty Care - [address] [address] Pankaj Rosenberg MD [facility]8 [address] [address] 06/20/2024 3:40 PM CENTER MEDICAL SPECIALIST Telemedicine [facility] Multispecialty Care - [place] [address] [address] [place] [address] Pankaj Rosenberg MD [facility] [address] [address] 06/21/2024 1:00 PM CENTER MEDICAL SPECIALIST Office Visit [facility] Medical Group Orthopedic & Sports Medicine - [place] [address] [place], [place] [address] Jose Ratliff MD [address] [place] [address] 03/27/2025 1:00 PM CENTER MEDICAL SPECIALIST Office Visit [facility] Medical Group Multispecialty Care - [facility] 3 [facility] [address] [place] [address] Bob Oneal MD 3 [facility] [place] [address] [place] [address] documented as of this encounter Procedures Procedure [...] MG/DL 09/28/2021 9:35 PM CDT [facility] 09/28/2021 2:25 PM CDT us Pankaj Rosenberg MD LABORATORY Final Result [facility] [address] [facility] [place] [address], * (ABNORMAL) COMPREHENSIVE METABOLIC PANEL (09/28/2021 2:25 PM CDT) [facility] SODIUM S/P/B 140 136 - 145 MMOL/L 09/28/2021 9:35 PM CDT [facility] POTASSIUM S/P/B 4.3 3.5 - 5.1 MMOL/L 09/28/2021 9:35 PM CDT [facility] CHLORIDE S/P/B 103 98 - 107 MMOL/L 09/28/2021 9:35 PM CDT [facility] CO2 24.9 21 - 32 MMOL/L 09/28/2021 9:35 PM T [facility] GLUCOSE 169(H) 70 - 99 MG/DL 09/28/2021 9:35 PM CDT [facility] BUN 11 7 - 18 MG/DL 09/28/2021 9:35 PM CDT [facility] CREATININE S/P/B 0.87 0.70 - 1.30 MG/DL 09/28/2021 9:35 PM T [facility] CALCIUM S/P/B 10.0 8.4 - 10.5 MG/DL 09/28/2021 9:35 PM CDT [facility] BILIRUBIN TOTAL S/P/B 0.5 0.2 - 1.0 MG/DL 09/28/2021 9:35 PM CDT [facility] ALKALINE PHOSPHATASE S/P/B 144(H) 45 - 115 U/L 09/28/2021 9:35 PM CDT [facility] AST 48(H) 15 - 37 U/L 09/28/2021 9:35 PM CDT [facility] ALT 139(H) 16 - 63 U/L 09/28/2021 9:35 PM T [facility] TOTAL PROTEIN S/P/B 8.0 6.4 - 8.2 G/DL 09/28/2021 9:35 PM CDT [facility] ALBUMIN S/P/B 3.7 3.4 - 5.0 G/DL 09/28/2021 9:35 PM CDT [facility] ANION GAP 12.1 5 - 15 MMOL/L 09/28/2021 9:35 PM CDT [facility] Comment:REFERENCE RANGE NOT ESTABLISHED OSMOLALITY (CALC) 293 MOSM/KG 022 9:35 PM CDT [facility] Comment:REFERENCE RANGE NOT ESTABLISHED GFR ESTIMATE >90 >90 ML/MIN/1. 73 M2 09/28/2021 9:35 PM CDT [facility] GFR NOTES GFR REFERENCE S: 09/28/2021 9:35 PM CDT [facility] Comment: THE ESTIMATED GFR IS [...] us Pankaj Rosenberg MD LABORATORY Final Result [facility] [place] [facility] [address] [place] [address], * (ABNORMAL) CBC W/DIFF AUTOMATED (09/28/2021 2:25 PM CDT) WBC 10.3 4.0 - 10.8 x10'3/uL 09/28/2021 7:44 PM CDT [facility] RBC 4.67 4.50 - 6.10 x10'6/uL 09/28/2021 7:44 PM CDT [facility] HGB 13.1 13.0 - 18.0 G/DL 09/28/2021 7:44 PM CDT [facility] HCT 40.4 37.0 - 52.0 % 09/28/2021 7:44 PM CDT [facility] MCV 86.5 78.0 - 100.0 FL 09/28/2021 7:44 PM CDT [facility] MCH 28.1 27.0 - 31.0 PG 09/28/2021 7:44 PM CDT [facility] MCHC 32.4(L) 33.0 - 36.0 G/DL 09/28/2021 7:44 PM CDT [facility] RDW 11.8 11.5 - 14.5 % 09/28/2021 7:44 PM CDT [facility] PLT 506(H) 150 - 350 x10'3/uL 09/28/2021 7:44 PM CDT [facility] MPV 10.1 7.4 - 10.4 FL 09/28/2021 7:44 PM CDT [facility] DIFFERENTIAL TYPE AUTOMATED DIFFERENTIAL 09/28/2021 7:44 PM CDT [facility] NEUTROPHILS % 71.4 % 09/28/2021 7:44 PM CDT [facility] LYMPHOCYTES % 20.0 % 09/28/2021 7:44 PM CDT [facility] MONOC[facility] % 4.9 % 09/28/2021 7:44 PM CDT [facility] EOSINOPHILS % 1.8 % 09/28/2021 7:44 PM CDT [facility] BASOPHILS % 0.5 % 09/28/2021 7:44 PM CDT [facility] IMMATURE GRANS % 1.4 % 09/28/2021 7:44 PM CDT -[facility] ABS. NEUTROPHILS 7.35 1.60 - 8.30 x10'3/uL 09/28/2021 7:44 PM CDT [facility] ABS. LYMPHOCYTES 2.06 0.80 - 4.70 x10'3/uL 09/28/2021 7:44 PM CDT -[facility] ABS. MONOCYTES 0.50 0.00 - 1.50 x10'3/uL 09/28/2021 7:44 PM CDT -[facility] ABS. EOSINOPHILS 0.19 0.00 - 0.40 x10'3/uL 09/28/2021 7:44 PM CDT [facility] ABS. BASOPHILS 0.05 0.00 - 0.20 x10'3/uL 09/28/2021 7:44 PM CDT -[facility] ABS. IMMATURE GRANULOCYTES 0.14(H) 0.00 - 0.03 x10'3/uL 09/28/2021 7:44 PM CDT [facility] 09/28/2021 2:25 PM CDT Pankaj Rosenberg MD LABORATORY Final Result Performing Organization Address City/State/[facility] Co de Phone Number [facility] [address] [place] [address], [place] [phone] documented in this encounter Visit Diagnoses Diagnosis Small bowel obstruction ([facility] HHS/HCC)- Primary Unspecified intestinal obstruction [...] documented as of this encounter Care Teams Transcript Evaluator Relationship Specialty Start Date End Date Pankaj Rosenberg MD [address] [address] PCP - General INTERNAL MEDICINE 06/15/21 documented as of this encounter
--- OUTSIDE RECORDS SUMMARY | 2024-05-13 11:25 | XMS_ITS | Encounter Summary ---
Author Organization [facility] Address [address] [place] [address]. [place], [place] [address] [place] [address] Care Team Providers Care Chief Safety Officer Name Role Phone Pankaj Rosenberg MD Primary Care Provider [phone] Encounter Details Date Type Department Care Team [...] on file Legal Sex Male 2:58 PM MD PSYCHIATRY Gender Identity Male 07/13/2021 5:19 AM MD PSYCHIATRY Sexual Orientation Straight 07/13/2021 5: 19 AM MD PSYCHIATRY COVID-19 Exposure Response Date Recorded In the last 10 days, have yo u been in contact with someone who was confirmed or suspected to have Coronavirus/COVID-19? No / Unsure 08/26/2021 6:53 AM CDT documented as of this encounter Plan of Treatment Upcoming Encounters Date Type Department Care Team (Late st Contact Info) Description 05/15/2024 3:30 PM MD PSYCHIATRY Appointment [facility] [address] Pankaj Rosenberg MD 1188 [facility] 157 [place] [address] 05/25/2024 12:45 PM MD PSYCHIATRY Office Visit [facility] Physical Therapy [id number] [address] [address] Pankaj Rosenberg MD [address] [address] Maya Magaña, [place] [address] 05/30/2024 3:40 PM MD PSYCHIATRY Office Visit [facility] Medical [facility] Multispecialty [facility] [place] - [place] [address] [address] [place] [address] Pankaj Rosenberg MD [address] [address] 06/20/2024 3:40 PM MD PSYCHIATRY Telemedicine [facility] Medical [facility] [place] [address] [address] [place] [address] Pankaj Rosenberg MD [address] [address] 06/21/2024 1:00 PM MD PSYCHIATRY Office Visit [facility] Medical Group Orthopedic & Sports Medicine - [place] [address] [place] [address] Jose Ratliff MD [address] [address] [place], [place] [address]- 03/27/2025 1:00 PM MD PSYCHIATRY Office Visit [facility] Medical [facility] Multispecialty Care - [facility] 3 [facility] [address] [place] [address] Bob Oneal MD 3 [facility] [address] [place] [address] documented as of this encounter Visit Diagnoses Not on filedocumented in this encounter Additional Health Concerns Assessment Noted Time PHQ-9 Depression Total Score: 0 08/01/19 22 2:12 PM CDT documented as of this encounter Care Teams Chief Safety Officer Relationship Specialty Start Date End Date Pankaj Rosenberg MD [address] [address] PCP - General INTERNAL MEDICINE 06/15/21 documented as of this encounter
--- OUTSIDE RECORDS SUMMARY | 2024-05-13 11:25 | XMS_ITS | Encounter Summary ---
Author Organization [facility] Address [address] [place] [address]. [place], [place] [address] [place] [address] Care Team Providers Care Founder / Ceo Name Role Phone Pankaj Rosenberg MD Primary Care Provider Reason for Visit * Reason Onset Date Comments Abdominal Pain 09/11/2021 Encounter Details Date Type Department Care Team (Late st Contact Info) Description 09/11/2021 Telephone [facility] Medical Group Multispecialty Care - [place] [address] [address] [place], [place] [address] Pankaj Rosenberg MD [address] [place] [address] 157 [place] [address] Abdominal Pain Social History Tobacco [...] on file Legal Sex Male 2:58 PM INSURANCE CUSTOMER SERVICE SPECIALIST Gender Identity Male 07/13/2021 5:19 AM INSURANCE CUSTOMER SERVICE SPECIALIST Sexual Orientation Straight 07/13/2021 5: 19 AM INSURANCE CUSTOMER SERVICE SPECIALIST COVID-19 Exposure Response Date Recorded In [...] to the ER. [facility] willbe going to [facility] Patient called and is stating that [...] st Contact Info) Description 05/15/2024 3:30 PM INSURANCE CUSTOMER SERVICE SPECIALIST Appointment [facility] [place] [address] Pankaj Rosenberg MD [facility] [address] [address] 05/25/2024 12:45 PM INSURANCE CUSTOMER SERVICE SPECIALIST Office Visit [facility] Physical Therapy [address] [place] [address] Pankaj Rosenberg MD [address] [place] [address] Maya Magaña, [place] [address] 05/30/2024 3:40 PM INSURANCE CUSTOMER SERVICE SPECIALIST Office Visit [facility] Medical Group Multispecialty Care - [place] [address] [address] [place] [address] Pankaj Rosenberg MD [address] [place] [address] [place] [address] 06/20/2024 3:40 PM INSURANCE CUSTOMER SERVICE SPECIALIST Telemedicine [facility] Multispecialty [facility] [place] [facility] - [place] [address] [place] [address] [address] [place] [address] Pankaj Rosenberg MD 1188 [facility] 157 [place] [address] 06/21/2024 1:00 PM INSURANCE CUSTOMER SERVICE SPECIALIST Office Visit [facility] Orthopedic & Sports Medicine - [place] [address] [place] [address] Jose Ratliff MD [address] [place] [address] [place] [address] 03/27/2025 1:00 PM INSURANCE CUSTOMER SERVICE SPECIALIST Office Visit [facility] Multispecialty [facility] [place] [facility] - [facility] 3 [facility] [address] [place] [address] Bob Oneal MD 3 [facility] [place] [address] [place] [address] documented as of this encounter Visit Diagnoses Not on filedocumented in this encounter Additional Health Concerns Assessment Noted Time PHQ-9 Depression Total Score: 0 08/01/19 22 2:12 PM CDT documented as of this encounter Care Teams Founder / Ceo Relationship Specialty Start Date End Date Pankaj Rosenberg MD [address] [place] [address] 157 [place] [address] PCP - General INTERNAL MEDICINE 06/15/21 documented as of this encounter
--- OUTSIDE RECORDS SUMMARY | 2024-05-13 11:25 | XMS_ITS | Encounter Summary ---
Author Organization [facility] Address [address] [place] [address]. [place] [address] [place] [address] Care Team Providers Care Seed Analyst Name Role Phone Pankaj Rosenberg MD Primary Care Provider [phone] Reason for Visit * Reason Onset Date Comments Results 08/19/2021 Encounter Details Date Type Department Care Team (Late st Contact Info) Description 08/19/2021 Telephone [facility] Multispecialty Care - [address] [place] [phone] Bob Oneal MD 3 [facility] [place] [address] [place] [address] Results Social History Tobacco Use Types Packs/Day [...] file Legal Sex Male 2:58 PM FINANCE EXECUTIVE Gender Identity Male 07/13/2021 5:19 AM FINANCE EXECUTIVE Sexual Orientation Straight 07/13/2021 5: 19 AM FINANCE EXECUTIVE COVID-19 Exposure Response Date Recorded In the [...] Contact Info) Description 05/15/2024 3:30 PM FINANCE EXECUTIVE Appointment [facility] [address] Pankaj Rosenberg MD [address] [place] [address] 05/25/2024 12:45 PM FINANCE EXECUTIVE Office Visit [facility] Physical Therapy [address] [place] [address] Pankaj Rosenberg MD [address] [place] [address] Maya Magaña, [place] [address] 05/30/2024 3:40 PM FINANCE EXECUTIVE Office Visit [facility] Multispecialty Care - [place] [address] [address] [place] [address] Pankaj Rosenberg MD [address] [address] 06/20/2024 3:40 PM FINANCE EXECUTIVE Telemedicine [facility] Multispecialty Care - [place] [address] [address] [place] [address] Pankaj Rosenberg MD [address] [address] 06/21/2024 1:00 PM FINANCE EXECUTIVE Office Visit [facility] Orthopedic & Sports Medicine - [place] 670 [place] [address] Jose Ratliff MD 670 [facility] [address] [place] [address] 03/27/2025 1:00 PM FINANCE EXECUTIVE Office Visit [facility] Multispecialty Care - [facility] 3 [facility], [address] [place] [address] Bob Oneal MD 3 [facility] [address] [place] [address] documented as of this encounter Visit Diagnoses Not on filedocumented in this encounter Additional Health Concerns Assessment Noted Time PHQ-9 Depression Total Score: 0 08/01/19 2:12 PM CDT documented as of this encounter Care Teams Seed Analyst Relationship Specialty Start Date End Date Pankaj Rosenberg MD [address] [place] [address] PCP - General INTERNAL MEDICINE 06/15/21 documented as of this encounter
--- OUTSIDE RECORDS SUMMARY | 2024-05-13 11:25 | XMS_ITS | Encounter Summary ---
Author Organization [facility] Address [address] [place] [address]. [place], [place] [address] [place] [address] Care Team Providers Care Tavern Car Attendant Name Role Phone Pankaj Rosenberg MD Primary Care Provider [phone] Reason for Visit * Reason Onset Date Comments TCM 09/23/2021 Encounter Details Date Type Department Care Team (Late st Contact Info) Description 09/23/2021 Telephone [facility] Medical Group Multispecialty Care - [place] [address] [address] [place] [address] Pankaj Rosenberg MD [address] [place] [address] 157 [place] [address] TCM Social History Tobacco Use [...] on file Legal Sex Male 2:58 PM MARKET PRESIDENT Gender Identity Male 07/13/2021 5:19 AM MARKET PRESIDENT Sexual Orientation Straight 07/13/2021 5: 19 AM MARKET PRESIDENT COVID-19 Exposure Response Date Recorded In the [...] st Contact Info) Description 05/15/2024 3:30 PM MARKET PRESIDENT Appointment [facility] [place] [address] Pankaj Rosenberg MD [address] [place] [address] 05/25/2024 12:45 PM MARKET PRESIDENT Office Visit [facility] Physical Therapy [address] [place] [address] Pankaj Rosenberg MD [address] [place] [address] Maya Magaña, [place] [address] 05/30/2024 3:40 PM MARKET PRESIDENT Office Visit [facility] Medical Group Multispecialty Care - [place] [address] [address] [place] [address] Pankaj Rosenberg MD [address] [place] [address] 06/20/2024 3:40 PM MARKET PRESIDENT Telemedicine [facility] Multispecialty Care - [place] [address] [place] [address] 157 [address] [place] [address] Pankaj Rosenberg MD 1188 [facility] 157 [place] [address] 06/21/2024 1:00 PM MARKET PRESIDENT Office Visit [facility] Orthopedic & Sports Medicine - [place] [address] [place] [address] Jose Ratliff MD [address] [place] [address] [place] [address] 03/27/2025 1:00 PM MARKET PRESIDENT Office Visit [facility] Multispecialty Care - [facility] 3 [facility]., [address] [place] [address] Bob Oneal MD 3 [facility] [address] [place] [address] documented as of this encounter Visit Diagnoses Not on filedocumented in this encounter Additional Health Concerns Assessment Noted Time PHQ-9 Depression Total Score: 0 08/01/19 22 2:12 PM CDT documented as of this encounter Care Teams Tavern Car Attendant Relationship Specialty Start Date End Date Pankaj Rosenberg MD 1188 [facility] 157 [place] [address] PCP - General INTERNAL MEDICINE 06/15/21 documented as of this encounter
--- OUTSIDE RECORDS SUMMARY | 2024-05-13 11:25 | XMS_ITS | Encounter Summary ---
Author Organization [facility] Address [address] [place] [address]. [place], [place] [address] [place] [address] Care Team Providers Care Service Restorer Emergency Name Role Phone Pankaj Rosenberg MD Primary Care Provider [phone] Encounter Details Date Type Department Care Team [...] file Legal Sex Male 2:58 PM BUSINESS PROCESS ASSOCIATE Gender Identity Male 07/13/2021 5:19 AM BUSINESS PROCESS ASSOCIATE Sexual Orientation Straight 07/13/2021 5: 19 AM BUSINESS PROCESS ASSOCIATE COVID-19 Exposure Response Date Recorded In the last 10 days, have yo u been in contact with someone who was confirmed or suspected to have Coronavirus/COVID-19? No / Unsure 08/21/2021 2:04 PM CDT documented as of this encounter Plan of Treatment Upcoming Encounters Date Type Department Care Team (Late st Contact Info) Description 05/15/2024 3:30 PM BUSINESS PROCESS ASSOCIATE Appointment [facility] [place], [place] [address] Pankaj Rosenberg MD [address] [address] 05/25/2024 12:45 PM BUSINESS PROCESS ASSOCIATE Office Visit [facility] Physical Therapy [facility] 157 [place] [address] Pankaj Rosenberg MD 1188 [facility] 157 [place] [address] Maya Magaña, [place] [address] 05/30/2024 3:40 PM BUSINESS PROCESS ASSOCIATE Office Visit [facility] Medical [facility] Multispecialty [facility] - [place] [address] [facility] 157 [address] [place] [address] Pankaj Rosenberg MD [address] [address] 06/20/2024 3:40 PM BUSINESS PROCESS ASSOCIATE Telemedicine [facility] - [address] [place] [address] Pankaj Rosenberg MD [address] [address] 06/21/2024 1:00 PM BUSINESS PROCESS ASSOCIATE Office Visit [facility] Medical Group Orthopedic & Sports Medicine - [place] [address] [place] [address] Jose Ratliff MD [address] [address] [place] [address] 03/27/2025 1:00 PM BUSINESS PROCESS ASSOCIATE Office Visit [facility] Medical [facility] Multispecialty Care - [facility] 3 [facility], [address] [place] [phone] Bob Oneal MD [address] [place] [address] documented as of this encounter Visit Diagnoses Not on filedocumented in this encounter Additional Health Concerns Assessment Noted Time PHQ-9 Depression Total Score: 0 08/01/19 22 2:12 PM CDT documented as of this encounter Care Teams Service Restorer Emergency Relationship Specialty Start Date End Date Pankaj Rosenberg MD [address] [address] PCP - General INTERNAL MEDICINE 06/15/21 documented as of this encounter
--- OUTSIDE RECORDS SUMMARY | 2024-05-13 11:25 | XMS_ITS | Encounter Summary ---
Author Organization [facility] Address [address] [place] [address]. [place] [address] [place] [address] Care Team Providers Care Greeter Name Role Phone Pankaj Rosenberg MD Primary Care Provider [phone] Reason for Visit * Auth/Cert Specialty Diagnoses / Procedures Referred By Contac t Referred To Contact Diagnoses Nausea and vomiting, unspecified vomiting type Change in bowel function Epigastric burning sensation Early satiety, nausea vomiting and epigastric burning of unclear etiology. Procedures UPPER GI ENDOSCOPY,DIAGNOSIS COLONOSCOPY,DIAGNOSTIC EGD COLONOSCOPY Referral ID Status Reason Start Date Expiration Date Visits Re quested Visits Authorized [id number] 1 1 Encounter Details Date Type Department Care Team (Late st Contact Info) Description 08/26/2021 7:30 AM CDT - 08/26/2021 8:14 AM CDT Surgery [facility] [address] [place] [address] Mario Oneal MD [address] [place] [id number] EGD Surgery Details Date/Time Status Location OR [...] on file Legal Sex Male 2:58 PM COMMUNITY RESOURCE OFFICER Gender Identity Male 07/13/2021 5:19 AM COMMUNITY RESOURCE OFFICER Sexual Orientation Straight 07/13/2021 5: 19 AM COMMUNITY RESOURCE OFFICER COVID-19 Exposure Response Date Recorded In [...] Everywhere. * Upper GI Endoscopy Discharge Instructions (Scottish) * Colonoscopy Discharge Instructions (Scottish) * Monitored Anesthesia Care (Scottish) documented in this encounter Medications at Time [...] hyperglycemia, without long-term current use of insulin ([facility]) Take 1 tablet (25 mg total) by [...] AND PHYSICAL INTERVAL NOTE: I have reviewed Sheir Barlow History & Physical which was performed [...] during recuperation were discussed with the patient/family/personal disability representative. Reasonable alternatives to the patient's proposed procedure/surgery including benefits, risks, and side effects related to the alternatives and the risks related to not receiving the proposed care were also discussed with the patient/family/personal disability representative. Questions were answered and the patient/family/personal disability representative verbalized understanding and desires to proceed. [...] Oneal MD - 08/26/2021 8:35 AM CDT [facility] OpNote EGD, COLONOSCOPY WITH POLYPECTOMY Procedure Note Sheri Barlow 08/26/2021 0730 Procedure(s) (LRB): EGD (N/A) COLONOSCOPY WITH POLYPECTOMY (N/A) Surgeon(s): Mario Oneal MD Staff: Circulating Nurse 1: Rimma Wilkerson RN Scrub Person 1: Cindy Alvarado RN Anesthesia: Monitor Anesthesia Care ELECTRIC WHEELCHAIR REPAIRER: Nishi Romero CRNA Pre-Op Diagnosis: Early [...] st Contact Info) Description 05/15/2024 3:30 PM COMMUNITY RESOURCE OFFICER Appointment [facility] [place] [address] Pankaj Rosenberg MD [address] [place] [address] 05/25/2024 12:45 PM COMMUNITY RESOURCE OFFICER Office [facility] Physical Therapy [address] [place] [address] Pankaj Rosenberg MD [address] [place] [address] Maya Magaña, [place] [address] 05/30/2024 3:40 PM COMMUNITY RESOURCE OFFICER Office Visit [facility] Medical [facility] Multispecialty Care - [address] [address] Pankaj Rosenberg MD [address] [place] [address] 06/20/2024 3:40 PM COMMUNITY RESOURCE OFFICER Telemedicine [facility] Medical [facility] Multispecialty Care - [address] [address] Pankaj Rosenberg MD [address] [place] [address] 06/21/2024 1:00 PM COMMUNITY RESOURCE OFFICER Office Visit [facility] Medical Group Orthopedic & Sports Medicine - [place] [address] [place] [address] Jose Ratliff MD [address] [address] [place] [address] 03/27/2025 1:00 PM COMMUNITY RESOURCE OFFICER Office Visit [facility] Medical Group Multispecialty Care - [facility] 3 [facility]., [address] [place] [address] Mario Oneal MD 3 [facility] [address] [place] [address] documented as of this encounter Procedures Procedure [...] [facility] 08/26/2021 7:22 AM CDT us Mario Oneal MD POCT ORDERABLES - DEVICE Final R esult [facility] [address] [place] [address], [place] [phone] * Pathology (08/26/2021 12:00 AM CDT) PATHOLOGY [facility] ? Department of Laboratory Medicine ?[address] ?[place] [address] ? , extension [phone] ? Pathology Report ? Surgical Pathology Report Name: DAVIS, SHERI R ? Specimen #: [id number] Age: 12 1995 (Age: 26) ? Location: [facility] Sex: M ?Procedure Date: 08/26/2021 Hospital #: [id number] ?Date Received: 08/27/2021 Date Reported: 08/28/2021 Provider: [...] applicable), interpretation and sign-out were performed at [facility], [address] [place] [address], [place], [place], [address]. FINAL DIAGNOSIS: COLON, SIGMOID, POLYP, BIOPSY: ? - HYPERPLASTIC POLYP. ? Electronically Signed Out ? C. Boris Lim M.D. [facility] Tissue specimen (specimen) COLON STRUCTURE / Unknown 08/26/2021 8:24 AM CDT Comment:N/V; epigastric pain us Mario Oneal MD PATHOLOGY/CYTOLOGY ORDERABLES Fi nal Result [facility] [address] [place] [address], [id number] documented in this encounter Visit Diagnoses Diagnosis [...] documented as of this encounter Care Teams Greeter Relationship Specialty Start Date End Date Pankaj Rosenberg MD 1188 [facility] [address] [place] [address] PCP - General INTERNAL MEDICINE 06/15/21 documented as of this encounter
--- OUTSIDE RECORDS SUMMARY | 2024-05-13 11:25 | XMS_ITS | Encounter Summary ---
Author Organization [facility] Address [address] [place] [address]. [place], [place] [address] [place] [address] Care Team Providers Care Internet Technology Manager Name Role Phone Pankaj Rosenberg MD Primary Care Provider [phone] Reason for Visit * Reason Onset Date Comments Follow Up Call 09/21/2021 Encounter Details Date Type Department Care Team (Late st Contact Info) Description 09/21/2021 Telephone [facility] Medical Group Multispecialty Care - [place] [address] [address] [place], [place] [address] Pankaj Rosenberg MD [address] [place] [address] 157 [place] [address] Follow Up Call Social History [...] file Legal Sex Male 2:58 PM COMMUNITY CENTER DIRECTOR Gender Identity Male 07/13/2021 5:19 AM COMMUNITY CENTER DIRECTOR Sexual Orientation Straight 07/13/2021 5: 19 AM COMMUNITY CENTER DIRECTOR COVID-19 Exposure Response Date Recorded In the last 10 days, have yo u been in contact with someone who was confirmed or suspected to have Coronavirus/COVID-19? No / Unsure 08/26/2021 6:53 AM CDT documented as of this encounter Progress Notes * Pankaj Rosenberg MD - 09/21/2021 7:36 AM CDT I called and spoke to patient. He is still at [facility]. He tells me he is not yet discharged. He will call once discharged to set up for a TCM follow up. Pankaj Rosenberg MD Internal Medicine [facility]. documented in this encounter Plan of Treatment Upcoming Encounters Date Type Department Care Team (Late st Contact Info) Description 05/15/2024 3:30 PM COMMUNITY CENTER DIRECTOR Appointment [facility] [place] [address] Pankaj Rosenberg MD [address] [place] [address] 05/25/2024 12:45 PM COMMUNITY CENTER DIRECTOR Office Visit [facility] Physical Therapy [address] [place] [address] Pankaj Rosenberg MD [address] [address] Maya Magaña, [place] [address] 05/30/2024 3:40 PM COMMUNITY CENTER DIRECTOR [facility] - [place] [address] [address] [place] [address] Pankaj Rosenberg MD [address] [address] 06/20/2024 3:40 PM COMMUNITY CENTER DIRECTOR [facility] [address] [place] [address] Pankaj Rosenberg MD 1188 [facility] 157 [place] [address] 06/21/2024 1:00 PM COMMUNITY CENTER DIRECTOR Office Visit [facility] Group Orthopedic & Sports Medicine - [place] [address] [place] [address] Jose Ratliff MD [address] [address] [place] [address] 03/27/2025 1:00 PM COMMUNITY CENTER DIRECTOR Office Visit [facility] Multispecialty Care - [facility] 3 [facility] [address] [place] [address] Bob Oneal MD 3 [facility] [address] [place] [address] documented as of this encounter Visit Diagnoses Not on filedocumented in this encounter Additional Health Concerns Assessment Noted Time PHQ-9 Depression Total Score: 0 08/01/19 22 2:12 PM CDT documented as of this encounter Care Teams Internet Technology Manager Relationship Specialty Start Date End Date Pankaj Rosenberg MD [address] [place] [address] 157 [place] [address] PCP - General INTERNAL MEDICINE 06/15/21 documented as of this encounter
--- OUTSIDE RECORDS SUMMARY | 2024-05-13 11:25 | XMS_ITS | Encounter Summary ---
Author Organization [facility] Address [address] [place] [address]. [place], [place] [address] [place] [address] Care Team Providers Care Front End Assistant Name Role Phone Pankaj Rosenberg MD Primary Care Provider Reason for Visit * Reason Onset Date Comments TCM 09/16/2021 Encounter Details Date Type Department Care Team (Late st Contact Info) Description 09/16/2021 Telephone [facility] Medical Group Multispecialty Care - [place] [address] [address] [place] [address] Pankaj Rosenberg MD [address] [place] [address] 157 [place] [address] TCM Social History Tobacco Use [...] on file Legal Sex Male 2:58 PM FELT TIPPING MACHINE TENDER Gender Identity Male 07/13/2021 5:19 AM FELT TIPPING MACHINE TENDER Sexual Orientation Straight 07/13/2021 5: 19 AM FELT TIPPING MACHINE TENDER COVID-19 Exposure Response Date Recorded [...] st Contact Info) Description 05/15/2024 3:30 PM FELT TIPPING MACHINE TENDER Appointment [place] [address] Pankaj Rosenberg MD [address] [place] [address] 05/25/2024 12:45 PM FELT TIPPING MACHINE TENDER Office Visit [facility] Physical Therapy [address] [place] [address] Pankaj Rosenberg MD [address] [place] [address] Maya Magaña, [place] [address] 05/30/2024 3:40 PM FELT TIPPING MACHINE TENDER [facility] - [place] [address] [address] [place] [address] Pankaj Rosenberg MD [facility] [address] [address] 06/20/2024 3:40 PM FELT TIPPING MACHINE TENDER Telemedicine [place] [address] [address] [place] [address] Pankaj Rosenberg MD [address] [place] [address] 06/21/2024 1:00 PM FELT TIPPING MACHINE TENDER Office Visit [facility] Orthopedic & Sports Medicine - [place] [address] [place] [address] Jose Ratliff MD [address] [address] [place] [address] 03/27/2025 1:00 PM FELT TIPPING MACHINE TENDER Office Visit [facility] Multispecialty Care - [facility] 3 [facility]., [address] [place] [address] Bob Oneal MD [address] [facility] [address] [place] [address] documented as of this encounter Visit Diagnoses Not on filedocumented in this encounter Additional Health Concerns Assessment Noted Time PHQ-9 Depression Total Score: 0 08/01/19 22 2:12 PM CDT documented as of this encounter Care Teams Front End Assistant Relationship Specialty Start Date End Date Pankaj Rosenberg MD 1188 [facility] 157 [place] [address] PCP - General INTERNAL MEDICINE 06/15/21 documented as of this encounter
--- OUTSIDE RECORDS SUMMARY | 2024-05-13 11:25 | XMS_ITS | Encounter Summary ---
Author Organization [facility] Address [address] [place] [address]. [place] [address] [place] [address] Care Team Providers Care Production Repairer Name Role Phone Pankaj Rosenberg MD Primary Care Provider [phone] Reason for Visit * Auth/Cert Specialty Diagnoses / Procedures Referred By Horacio espinoza Referred To Contact Diagnoses Nausea and vomiting, unspecified vomiting type Change in bowel function Epigastric burning sensation Early satiety, nausea vomiting and epigastric burning of unclear etiology. Procedures UPPER GI ENDOSCOPY,DIAGNOSIS COLONOSCOPY,DIAGNOSTIC EGD COLONOSCOPY Referral ID Status Reason Start Date Expiration Date Visits Re quested Visits Authorized [id number] 1 1 Encounter Details Date Type Department Care Team (Late st Contact Info) Description 08/26/2021 8:09 AM CDT Anesthesia Event [facility] [address] [place] [address] Nishi Romero CRNA 7416 [place] [address] Lisa Holt CRNA 2022 [place] [address] Anesthesia Record Procedure Summary Procedure Name Responsible Anesthesiologist Anesthesia Start Time Anesthesia Stop Time EGD Nishi Romero CRNA 08/26/21 0809 08/26 0841 Events Date Time Event Comment 08/26/2021 0723 0723 AN Anesthesia Prepped 0723 AN WATCH AND CLOCK MAKER AND REPAIRER Prepped 0809 An Start Patient ID and [...] on file Legal Sex Male 2:58 PM LACE ROLLER OPERATOR Gender Identity Male 07/13/2021 5:19 AM LACE ROLLER OPERATOR Sexual Orientation Straight 07/13/2021 5: 19 AM LACE ROLLER OPERATOR COVID-19 Exposure Response Date Recorded In [...] st Contact Info) Description 05/15/2024 3:30 PM LACE ROLLER OPERATOR Appointment [facility] [place] [address] Pankaj Rosenberg MD [address] [place] [address] 05/25/2024 12:45 PM LACE ROLLER OPERATOR Office Visit [facility] Physical Therapy [address] [place] [address] Pankaj Rosenberg MD [address] [place] [address] Maya Magaña, [place] [address] 05/30/2024 3:40 PM LACE ROLLER OPERATOR [facility] - [place] [address] [address] [place] [address] Pankaj Rosenberg MD [address] [place] [address] 06/20/2024 3:40 PM LACE ROLLER OPERATOR [facility]medicine [facility] - [place] [address] [address] [place] [address] Pankaj Rosenberg MD 1188 [facility] [address] [place] [address] 06/21/2024 1:00 PM LACE ROLLER OPERATOR Office Visit [facility] Orthopedic & Sports Medicine - [place] [address] [place] [address] Jose Ratliff MD 670 [facility] [address] [place] [address] 03/27/2025 1:00 PM LACE ROLLER OPERATOR Office Visit [facility] Multispecialty Care - [facility] 3 [facility] [address] [place] [address] Bob Oneal MD 3 [facility] [address] [place] [address] documented as of this encounter Visit Diagnoses [...] documented as of this encounter Care Teams Production Repairer Relationship Specialty Start Date End Date Pankaj Rosenberg MD [address] [address] PCP - General INTERNAL MEDICINE 06/15/21 documented as of this encounter
--- OUTSIDE RECORDS SUMMARY | 2024-05-13 11:25 | XMS_ITS | Encounter Summary ---
Author Organization [facility] Address [address] [place] [address]. [place] [address] [place] [address] Care Team Providers Care Lift Truck Operator Name Role Phone Pankaj Rosenberg MD Primary Care Provider [phone] Reason for Referral * Surgical (Routine) - Closed Specialty Diagnoses / Procedures Referred By Contac t Referred To Contact SURGERY Diagnoses Gallbladder polyp Bob Oneal MD 3 [facility] [address] [place] [address] Phone: tel: fax: Bernardo Pedraza MD Phone: tel: fax: Referral ID Status Reason Start Date Expiration Date Visits Re quested Visits Authorized [id number] Closed 08/26/2021 09/26/2022 99 99 Encounter Details Date Type Department Care Team (Late st Contact Info) Description 08/26/2021 Orders Only [facility] Multispecialty Care - [facility] 3 [facility] [address] [place] [address] Bob Oneal MD 3 [facility] [address] [place] [address] Social History Tobacco Use Types Packs/Day Years [...] on file Legal Sex Male 2:58 PM DREDGEMASTER Gender Identity Male 07/13/2021 5:19 AM DREDGEMASTER Sexual Orientation Straight 07/13/2021 5: 19 AM DREDGEMASTER COVID-19 Exposure Response Date Recorded In the last 10 days, have yo u been in contact with someone who was confirmed or suspected to have Coronavirus/COVID-19? No / Unsure 08/26/2021 6:53 AM CDT documented as of this encounter Plan of Treatment Upcoming Encounters Date Type Department Care Team (Late st Contact Info) Description 05/15/2024 3:30 PM DREDGEMASTER Appointment [facility] [place] [address] Pankaj Rosenberg MD [address] [place] [id number] 05/25/2024 12:45 PM DREDGEMASTER Office Visit [facility] Physical Therapy [address] [place] [address] Pankaj Rosenberg MD [address] [place] [address] Maya Maagña, [place] [address] 05/30/2024 3:40 PM DREDGEMASTER Office Visit [facility] Medical Group Multispecialty Care - [place] [address] [address] [place] [address] Pankaj Rosenberg MD [address] [place], [place] [address] [address] 06/20/2024 3:40 PM DREDGEMASTER Telemedicine [facility] Mult[facility]pecialty [facility] - [place] [address] [place] [address] [address] [place] [address] Pankaj Rosenberg MD [address] [address] 06/21/2024 1:00 PM DREDGEMASTER Office Visit [facility] - [place] [address] [place] [address] Jose Ratliff MD 670 [facility] [address] [place] [address] 03/27/2025 1:00 PM DREDGEMASTER Office Visit [facility] [facility] - [facility] 3 [facility] [address] [place] [address] Bob Oneal MD 3 [facility] [address] [place] [address] Scheduled Referrals Name Type Priority Associated Diagnoses Orde r Schedule Ambulatory referral to General Surgery (OTHER) Referral Routine Gallbladder polyp Ordered: 08/26/2021 documented as of this encounter Visit Diagnoses Diagnosis Gallbladder polyp- Primary Cholesterolosis of gallbladder documented in this encounter Additional Health Concerns Assessment Noted Time PHQ-9 Depression Total Score: 0 08/01/19 2:12 PM CDT documented as of this encounter Care Teams Lift Truck Operator Relationship Specialty [place] [address] [place] [address] PCP - General INTERNAL MEDICINE 06/15/21 documented as of this encounter
--- OUTSIDE RECORDS SUMMARY | 2024-05-13 11:25 | XMS_ITS | Encounter Summary ---
Author Organization [facility] Address [address] [place] [address]. [place], [place] [address] [place] [address] Care Team Providers Care Sheet Rocker Name Role Phone Pankaj Rosenberg MD Primary Care Provider [phone] Reason for Visit * Reason Onset Date Comments TCM 09/17/2021 Encounter Details Date Type Department Care Team (Late st Contact Info) Description 09/17/2021 Telephone [facility] Multispecialty Care - [place] [address] [address] [place] [address] Pankaj Rosenberg MD [address] [place] [address] [address] [place] [address] TCM Social History Tobacco Use [...] on file Legal Sex Male 2:58 PM LOAN COUNSELOR Gender Identity Male 07/13/2021 5:19 AM LOAN COUNSELOR Sexual Orientation Straight 07/13/2021 5: 19 AM LOAN COUNSELOR COVID-19 Exposure Response Date Recorded In the [...] st Contact Info) Description 05/15/2024 3:30 PM LOAN COUNSELOR Appointment [facility] [place] [address] Pankaj Rosenberg MD [address] [place] [address] 05/25/2024 12:45 PM LOAN COUNSELOR Office Visit [facility] Physical Therapy [address] [place] [address] Pankaj Rosenberg MD [address] [place] [address] Maya Magaña, [place] [address] 05/30/2024 3:40 PM LOAN COUNSELOR Office Visit [facility] Multispecialty Care - [place] [address] [address] [place] [address] Pankaj Rsoenberg MD [address] [place] [address] 06/20/2024 3:40 PM LOAN COUNSELOR Telemedicine [facility] Multispecialty [facility] - [place] [address] [address] [place] [address] Pankaj Rosenberg MD 1188 [facility] 157 [place] [address] 06/21/2024 1:00 PM LOAN COUNSELOR Office Visit [facility] Orthopedic & Sports Medicine - [place] [address] [place] [address] Jose Ratliff MD [address] [address] [place] [address] 03/27/2025 1:00 PM LOAN COUNSELOR Office Visit [facility] Multispecialty [facility] 3 [facility] [address] [place] [address] Bob Oneal MD 3 [facility] [address] [place] [address] documented as of this encounter Visit Diagnoses Not on filedocumented in this encounter Additional Health Concerns Assessment Noted Time PHQ-9 Depression Total Score: 0 08/01/19 2:12 PM CDT documented as of this encounter Care Teams Sheet Rocker Relationship Specialty Start Date End Date Pankaj Rosenberg MD [address] [place] [address] PCP - General INTERNAL MEDICINE 06/15/21 documented as of this encounter
--- OUTSIDE RECORDS SUMMARY | 2024-05-13 11:25 | XMS_ITS | Encounter Summary ---
Author Organization [facility] Address [address] [place] [address]. [place], [place] [address] [place] [address] Care Team Providers Care International Exchange Coordinator Name Role Phone Pankaj Rosenberg MD Primary Care Provider [phone] Reason for Visit * Auth/Cert Specialty Diagnoses / Procedures Referred By Horacio espinoza Referred To Contact Diagnoses Nausea and vomiting, unspecified vomiting type Change in bowel function Epigastric burning sensation Early satiety, nausea vomiting and epigastric burning of unclear etiology. Procedures UPPER GI ENDOSCOPY,DIAGNOSIS COLONOSCOPY,DIAGNOSTIC EGD COLONOSCOPY Referral ID Status Reason Start Date Expiration Date Visits Re quested Visits Authorized [id number] 1 1 Encounter Details Date Type Department Care Team (Latest Contact Info) Description 08/26/2021 6:53 AM CDT - 08/26/2021 9:25 AM CDT Hospital Encounter [facility] [address] [place] [address] Mario Oneal MD [address] [place] [phone] Discharge Disposition: Home or Self Care (Routine [...] on file Legal Sex Male 2:58 PM AUXILIARY POWER EQUIPMENT OPERATOR Gender Identity Male 07/13/2021 5:19 AM AUXILIARY POWER EQUIPMENT OPERATOR Sexual Orientation Straight 07/13/2021 5: 19 AM AUXILIARY POWER EQUIPMENT OPERATOR COVID-19 Exposure Response Date Recorded In [...] Everywhere. * Upper GI Endoscopy Discharge Instructions (Malawian) * Colonoscopy Discharge Instructions (Malawian) * Monitored Anesthesia Care (Malawian) documented in this encounter Medications at Time [...] use of insulin ([facility]/HCC HHS/HCC) Take 1 tablet (25 mg [...] during recuperation were discussed with the patient/family/personal financial services representative. Reasonable alternatives to the patient's proposed procedure/surgery including benefits, risks, and side effects related to the alternatives and the risks related to not receiving the proposed care were also discussed with the patient/family/personal financial services representative. Questions were answered and the patient/family/personal financial services representative verbalized understanding and desires to proceed. [...] Oneal MD - 08/26/2021 8:35 AM CDT [facility] OpNote EGD, COLONOSCOPY WITH POLYPECTOMY Procedure Note Sheri Hinds Aud 08/26/2021 0730 Procedure(s) (LRB): EGD (N/A) COLONOSCOPY WITH POLYPECTOMY (N/A) Surgeon(s): Mario Oneal MD Staff: Circulating Nurse 1: Rimma Wilkerson RN Scrub Person 1: Cindy Alvarado RN Anesthesia: Monitor Anesthesia Care OIL DIPPER: Nishi Romero CRNA Pre-Op Diagnosis: Early satiety, [...] st Contact Info) Description 05/15/2024 3:30 PM AUXILIARY POWER EQUIPMENT OPERATOR Appointment [facility] [place] [address] Pankaj Rosenberg MD [address] [facility] [address] [place] [address] 05/25/2024 12:45 PM AUXILIARY POWER EQUIPMENT OPERATOR Office Visit [facility] Physical Therapy [address] [facility] 157 [place] [address] Pankaj Rosenberg MD 1188 [facility] 157 [place] [address] Maya Magaña, [place] [address] 05/30/2024 3:40 PM AUXILIARY POWER EQUIPMENT OPERATOR [facility] [facility] - [address] [place] [address] Pankaj Rosenberg MD [address] [address] 06/20/2024 3:40 PM AUXILIARY POWER EQUIPMENT OPERATOR Telemedicine [facility] - [place] [address] [address] [place] [address] Pankaj Rosenberg MD [address] [address] 06/21/2024 1:00 PM AUXILIARY POWER EQUIPMENT OPERATOR Office Visit [facility] Orthopedic & Sports Medicine - [place] [address] [place] [address] Jose Ratliff MD [address] [address] [place] [address] 03/27/2025 1:00 PM AUXILIARY POWER EQUIPMENT OPERATOR [facility] 3 [facility] [address] [place] [address] Mario Oneal MD 3 [facility] [address] [place] [address] documented as of this encounter Procedures Procedure [...] - 110 mg/dL 08/26/2021 7:28 AM CDT [facility] 08/26/2021 7:22 AM CDT Mario Oneal MD POCT ORDERABLES - DEVICE Final R esult Performing Organization Address City/State/RUST Co de Phone Number [facility] [address] [place] [address], * Pathology (08/26/2021 12:00 AM CDT) PATHOLOGY [facility] ? Department of Laboratory Medicine ?[address] [facility] ?[place] [address] ? , extension [phone] ? Pathology Report ? Surgical Pathology Report Name: SHERI CANNON ? Specimen #: [id number] Age: 12 1995 (Age: 26) ? Location: [facility] Sex: M ?Procedure Date: 08/26/2021 [facility] #: [id number] ?Date Received: 08/27/2021 Date Reported: 08/28/2021 Provider: [...] applicable), interpretation and sign-out were performed at [facility], [address] [place] [address], [phone]. FINAL DIAGNOSIS: COLON, SIGMOID, POLYP, BIOPSY: ? - HYPERPLASTIC POLYP. ? Electronically Signed Out ? C. Boris Lim M.D. [facility] Tissue specimen (specimen) COLON STRUCTURE / Unknown 08/26/2021 8:24 AM CDT Comment:N/V; epigastric pain Mario Oneal MD PATHOLOGY/CYTOLOGY ORDERABLES Fi nal Result [facility] [address] [place] [address], [id number] documented in this encounter Visit Diagnoses Diagnosis [...] as of this encounter Care Teams International Exchange Coordinator Relationship Specialty Start Date End Date Pankaj Rosenberg MD [address] [facility] [address] [place] [address] PCP - General INTERNAL MEDICINE 06/15/21 documented as of this encounter
--- OUTSIDE RECORDS SUMMARY | 2024-05-13 11:25 | XMS_ITS | Encounter Summary ---
Author Organization [facility] Address [address] [place] [address]. [place], [place] [address] [place] [address] Care Team Providers Care Doctor Assistant Name Role Phone Pankaj Rosenberg MD Primary Care Provider [phone] Encounter Details Date Type Department Care Team [...] file Legal Sex Male 2:58 PM PATIENT REGISTRATION REPRESENTATIVE Gender Identity Male 07/13/2021 5:19 AM PATIENT REGISTRATION REPRESENTATIVE Sexual Orientation Straight 07/13/2021 5: 19 AM PATIENT REGISTRATION REPRESENTATIVE COVID-19 Exposure Response Date Recorded In the last 10 days, have yo u been in contact with someone who was confirmed or suspected to have Coronavirus/COVID-19? No / Unsure 09/28/2021 1:40 PM CDT documented as of this encounter Plan of Treatment Upcoming Encounters Date Type Department Care Team (Late st Contact Info) Description 05/15/2024 3:30 PM PATIENT REGISTRATION REPRESENTATIVE Appointment [facility] [place] [address] Pankaj Rosenberg MD 1188 [facility] 157 [place] [address] 05/25/2024 12:45 PM PATIENT REGISTRATION REPRESENTATIVE Office Visit [facility] Physical Therapy [facility] [address] Pankaj Rosenberg MD [address] [address] Maya Magaña, [place] [address] 05/30/2024 3:40 PM PATIENT REGISTRATION REPRESENTATIVE Office Visit [facility] Medical [facility] Multispecialty [facility] - [place] [address] [address] [place] [address] Pankaj Rosenberg MD [address] [address] 06/20/2024 3:40 PM PATIENT REGISTRATION REPRESENTATIVE Telemedicine [facility] - [place] [address] [address] [place] [address] Pankaj Rosenberg MD [address] [address] 06/21/2024 1:00 PM PATIENT REGISTRATION REPRESENTATIVE Office Visit [facility] Medical Group Orthopedic & Sports Medicine - [place] [address] [place] [address] Jose Ratliff MD [address] [address] [place], [place] [address]- 03/27/2025 1:00 PM PATIENT REGISTRATION REPRESENTATIVE Office Visit [facility] Medical [facility] Multispecialty Care - [facility] 3 [facility] [address] [place] [address] Bob Oneal MD 3 [facility] [address] [place] [address] documented as of this encounter Visit Diagnoses Not on filedocumented in this encounter Additional Health Concerns Assessment Noted Time PHQ-9 Depression Total Score: 0 08/01/19 22 2:12 PM CDT documented as of this encounter Care Teams Doctor Assistant Relationship Specialty Start Date End Date Pankaj Rosenberg MD [address] [address] PCP - General INTERNAL MEDICINE 06/15/21 documented as of this encounter
--- OUTSIDE RECORDS SUMMARY | 2024-05-13 11:25 | XMS_ITS | Encounter Summary ---
Author Organization [facility] Address [address] [place] [address]. [place], [place] [address] [place] [address] Care Team Providers Care Cobbler Apprentice Name Role Phone Pankaj Rosenberg MD Primary Care Provider [phone] Encounter Details Date Type Department Care Team [...] on file Legal Sex Male 2:58 PM PLANT ECOLOGIST Gender Identity Male 07/13/2021 5:19 AM PLANT ECOLOGIST Sexual Orientation Straight 07/13/2021 5: 19 AM PLANT ECOLOGIST COVID-19 Exposure Response Date Recorded In the last 10 days, have yo u been in contact with someone who was confirmed or suspected to have Coronavirus/COVID-19? No / Unsure 08/26/2021 6:53 AM CDT documented as of this encounter Plan of Treatment Upcoming Encounters Date Type Department Care Team (Late st Contact Info) Description 05/15/2024 3:30 PM PLANT ECOLOGIST Appointment [facility] [place], [place] [address] Pankaj Rosenberg MD [address] [address] 05/25/2024 12:45 PM PLANT ECOLOGIST Office Visit [facility] Physical Therapy Counts include [facility] beds at the [facility] 157 [place] [address] Pankaj Rosenberg MD 1188 [facility] 157 [place] [address] Maya Magaña, [place] [address] 05/30/2024 3:40 PM PLANT ECOLOGIST Office Visit [facility] Medical [facility] Multispecialty [facility] - [place] [address] [facility] [address] [place] [address] Pankaj Rosenberg MD [address] [address] 06/20/2024 3:40 PM PLANT ECOLOGIST Telemedicine [facility] - [address] [place] [address] Pankaj Rosenberg MD [address] [address] 06/21/2024 1:00 PM PLANT ECOLOGIST Office Visit [facility] Medical Group Orthopedic & Sports Medicine - [place] [address] [place] [address] Jose Ratliff MD [address] [address] [place] [address] 03/27/2025 1:00 PM PLANT ECOLOGIST Office Visit [facility] Medical [facility] Multispecialty Care - [facility] 3 [facility], [address] [place] [address] Bob Oneal MD [address] [place] [address] documented as of this encounter Visit Diagnoses Not on filedocumented in this encounter Additional Health Concerns Assessment Noted Time PHQ-9 Depression Total Score: 0 08/01/19 22 2:12 PM CDT documented as of this encounter Care Teams Cobbler Apprentice Relationship Specialty Start Date End Date Pankaj Rosenberg MD [address] [address] PCP - General INTERNAL MEDICINE 06/15/21 documented as of this encounter
--- OUTSIDE RECORDS SUMMARY | 2024-05-13 11:25 | XMS_ITS | Encounter Summary ---
Author Organization [facility] Address [address] [place] [address]. [place], [place] [address] [place] [address] Care Team Providers Care Glaze Handler Name Role Phone Pankaj Rosenberg MD Primary Care Provider Encounter Details Date Type Department Care Team (Latest Contact Info) Description 08/21/2021 Scan HEALTH INFO SRVCS Scanned, Documents Social History Tobacco Use Types Packs/Day Years Used Date Smoking Tobacco: Never Smokeless Tobacco: Former Snuff, Chew Quit: 08/14/2020 Comments:counseled by Dr Sammie glalardo Alcohol Use Standard Drinks/Week Comments Yes 5 (1 standard drink = 0.6 oz pur e alcohol) PHQ-2 Answer Date Recorded PHQ-2 Score - If the patient scores above 3, please move on to questions 3-9 0 07/31/2021 Sex and Gender Information Value Date Recorded Sex Assigned at Not on file Legal Sex Male 2:58 PM JAI ALAI PLAYER Gender Identity Male 07/13/2021 5:19 AM JAI ALAI PLAYER Sexual Orientation Straight 07/13/2021 5: 19 AM JAI ALAI PLAYER COVID-19 Exposure Response Date Recorded In the last 10 days, have yo u been in contact with someone who was confirmed or suspected to have Coronavirus/COVID-19? No / Unsure 08/26/2021 6:53 AM CDT documented as of this encounter Plan of Treatment Upcoming Encounters Date Type Department Care Team (Late st Contact Info) Description 05/15/2024 3:30 PM JAI ALAI PLAYER Appointment [place] [address] Pankaj Rosenberg MD 1188 [facility] 157 [place] [address] 05/25/2024 12:45 PM JAI ALAI PLAYER Office [facility] Physical [id number] [address] [address] Pankaj Rosenberg MD [address] [address] Maya Magaña, [place] [address] 05/30/2024 3:40 PM JAI ALAI PLAYER Office Visit [facility] Medical [facility] Multispecialty [facility] [place] - [place] [address] [address] [place] [address] Pankaj Rosenberg MD [address] [address] 06/20/2024 3:40 PM JAI ALAI PLAYER Telemedicine [facility] [place] - [place] [address] [address] [place] [address] Pankaj Rosenberg MD [address] [address] 06/21/2024 1:00 PM JAI ALAI PLAYER Office Visit [facility] Medical Group Orthopedic & Sports Medicine - [place] [address] [place] [address] Jose Ratliff MD [address] [address] [place], [place] [address]- 03/27/2025 1:00 PM JAI ALAI PLAYER Office Visit [facility] Medical [facility] Multispecialty Care - [facility] 3 [facility] [address] [place] [address] Bob Oneal MD 3 [facility] [address] [place] [address] documented as of this encounter Visit Diagnoses Not on filedocumented in this encounter Additional Health Concerns Assessment Noted Time PHQ-9 Depression Total Score: 0 08/01/19 22 2:12 PM CDT documented as of this encounter Care Teams Glaze Handler Relationship Specialty Start Date End Date Pankaj Rosenberg MD [address] [address] PCP - General INTERNAL MEDICINE 06/15/21 documented as of this encounter
--- OUTSIDE RECORDS SUMMARY | 2024-05-13 11:25 | XMS_ITS | Encounter Summary ---
Author Organization [facility] Address [address] [place] [address]. [place], [place] [address] [place] [address] Care Team Providers Care Consumer Loan Manager Name Role Phone Pankaj Rosenberg MD Primary Care Provider [phone] Reason for Referral * Surgical (Routine) - Canceled Specialty Diagnoses / Procedures Referred By Horacio espinoza Referred To Contact GENERAL SURGERY Diagnoses Polyp of gallbladder Nausea and vomiting, unspecified vomiting type Change in bowel function Lily Cuello NP [address] [address] Phone: tel: fax: Referral ID Status Reason Start Date Expiration Date V isits Requested Visits Authorized [id number] Canceled 08/19/2021 09/19/2022 1 1 Scheduling Instructions [...] disease without esophagitis Pankaj Rosenberg MD 1188 [facility] [address] [place] [address] Phone: tel: fax: [facility] - [address], [address] [place] [address] Phone: tel: fax: Referral ID Status Reason Start Date Expiration Date Visits Re quested Visits Authorized [id number] Closed 07/13/2021 08/14/2022 99 99 Encounter Details Date Type Department Care Team (Latest Contact Info) Description 08/19/2021 2:20 PM CDT Teleconsult [facility] - [address], [address] [place] [address] Lily Cuello NP 3 [facility] [address] [place] [address] Follow Up (US results) Social History [...] on file Legal Sex Male 2:58 PM CLUB ATTENDANT Gender Identity Male 07/13/2021 5:19 AM CLUB ATTENDANT Sexual Orientation Straight 07/13/2021 5: 19 AM CLUB ATTENDANT COVID-19 Exposure Response Date Recorded In the [...] patient aware that the same confidentiality and geospatial information technologist practices apply. The patient joined the telephone visit from Home. I completed the virtual visit from Office. The following clinical staff helped with this visit MA: Jennifer Dolan MA. Total Time Spent in Minutes: 10 minutes from [id number] Patient requesting results from ultrasound performed on [...] seeing a surgeon and is okay with [facility]. 08/18/2021 RUQ US IMPRESSION: 1. [...] bile duct measures.4.4 mm. 3. Right kidney phclfuqa58.9 x 5.4 x 5.9 cm. No focal [...] st Contact Info) Description 05/15/2024 3:30 PM CLUB ATTENDANT Appointment [facility] [place] [address] Pankaj Rosenberg MD [address] [place] [address] 05/25/2024 12:45 PM CLUB ATTENDANT Office Visit [facility] Physical Therapy [address] [place] [address] Pankaj Rosenberg MD [address] [place] [address] Maya Magaña, [place] [address] 05/30/2024 3:40 PM CLUB ATTENDANT Office Visit [facility] Medical Group Multispecialty Care - [place] [address] [address] [place] [address] Pankaj Rosenberg MD [address] [place] [address] [place] [address] 06/20/2024 3:40 PM CLUB ATTENDANT Telemedicine [facility] Multispecialty [facility] - [place] [address] [address] [place] [address] Pankaj Rosenberg MD [address] [address] 06/21/2024 1:00 PM CLUB ATTENDANT Office Visit [facility] - [place] [address] [place] [address] Jose Ratliff MD 670 [facility] [address] [place] [address] 03/27/2025 1:00 PM CLUB ATTENDANT Office Visit [facility] Mult[facility]pecialty [facility] - [facility] 3 [facility], [address] [place] [address] Mario Oneal MD 3 [facility] [address] [place] [address] Scheduled Referrals Name Type Priority Associated Diagnoses [...] documented as of this encounter Care Teams Consumer Loan Manager Relationship Specialty Start Date End Date Pankaj Rosenberg MD [address] [place] [address] PCP - General INTERNAL MEDICINE 06/15/21 documented as of this encounter
--- OUTSIDE RECORDS SUMMARY | 2024-05-13 11:25 | XMS_ITS | Encounter Summary ---
Author Organization [facility] Address [address] [place] [address]. [place], [place] [address] [place] [address] Care Team Providers Care Air Box Tester Name Role Phone Pankaj Rosenberg MD Primary Care Provider [phone] Reason for Referral * Consultation (Routine) - Closed Specialty Diagnoses / Procedures Referred By Contact Referred To Contact SLEEP & RESPIRATORY CARE Diagnoses KARRIE (obstructive sleep apnea) Pankaj Rosenberg MD [address] [place] [address] Phone: tel: fax: [facility] Medical [facility] - [address] [address] Phone: tel: fax: Referral ID Status Reason Start Date Expiration Date V isits Requested Visits Authorized [id number] Closed Specialty Services 08/21/2021 09/20/2022 99 99 Reason for Visit * Reason Comments Results Pt is here for sleep study results, DM, HTN Encounter Details Date Type Department Care Team (Latest Contact Info) Description 08/21/2021 2:30 PM CDT Office Visit [facility] Medical Group Multispecialty Care - [place] [address] [address] [place] [address] Pankaj Rosenberg MD [facility] [address] Results (Pt is here for [...] on file Legal Sex Male 2:58 PM ULTRASONIC SOLDERER Gender Identity Male 07/13/2021 5:19 AM ULTRASONIC SOLDERER Sexual Orientation Straight 07/13/2021 5: 19 AM ULTRASONIC SOLDERER COVID-19 Exposure Response Date Recorded In the [...] apnea ?? Hormone problems - thyroid disease, [place]???s syndrome, acromegaly, hyperaldosteronism, and pheochromocytoma ?? Lupus [...] pharmacist about all of your drugs, including nbfj-wen-kkhodym medicines, to see if they may cause [...] ?? Nosebleed Where can I learn more? [place] [employer] https://www.heart.org/en/health-topics/qxul-ntcwv-cxutzusq/sddwiuh-xsh-fuw-make- mp-emsywx-tbey-blood-pressure [place] [employer] https://www.heart.org/en/health-topics/jtxv-ujbaz-ifuarzvi/bkn-wciy-kbosb-pressu mj-cj-i-silent-killer/cnrq-bcok-lpyw-jgyrmnj-zgh-ueyy-blood-pressure Centers for Disease Control and Prevention https://www.cdc.gov/bloodpressure/risk_factors.htm NHS Choices https://www.nhs.uk/conditions/qsqr-omswd-lzhdanps-hypertension/ Last Reviewed Date 2019-08-09 Consumer Information Use [...] or approved for treating a specific patient. [employer] and its affiliates disclaim any warranty or liability relating to this information or the use thereof. The use of this information is governed by the Terms of Use, available at https://www.[employer].com/en/solutions/lexicomp/about/mili Copyright Copyright ?? 2020 [employer] and its affiliates and/or licensors. All rights [...] hyperglycemia, without long-term current use of insulin ([facility]) E11.65 250.00 TYPE 2 DIABETES MELLITUS A1C (BACK OFFICE) 790.29 SITagliptin (JANUVIA) 25 mg Tab 2. KARRIE (obstructive sleep apnea) G47.33 327.23 OBSTRUCTIVE SLEEP APNEA SYNDROME CPAP DEVICE, DME, Ambulatory referral to Pulmonology ([facility]) 3. Primary hypertension I10 401.9 ESSENTIAL HYPERTENSION lisinopril 40 MG tablet 4. Gastroesophageal reflux disease without esophagitis K21.9 530.81 GASTROESOPHAGEAL REFLUX DISEASEWITHOUT ESOPHAGITIS omeprazole 40 MG capsule 5. Mixed hyperlipidemia E78.2 272.2 MIXED HYPERLIPIDEMIA pravastatin 40 MG tablet 6. Need for prophylactic vaccination against Streptococcus pneumoniae (pneumococcus) Z23 V03.82 REQUIRES VACCINATION [85438] Pneumovax 23 (Pneumococcal) 1. Type 2 diabetes mellitus with hyperglycemia, without long-term current use of insulin ([facility]) - controlled - A1C (BACK OFFICE) - [...] to Reece - Ambulatory referral to Pulmonology ([facility]) 3. Primary hypertension - Patient currently uncontrolled [...] prophylactic vaccination against Streptococcus pneumoniae (pneumococcus) - [40995] Pneumovax 23 (Pneumococcal) Counseling given: Yes Comment: [...] was at least in part performed using [employer] speak and there may be some inherent flaws in this electric trucker due to the nature of this program. Pankaj Rosenberg MD Internal Medicine [facility], [facility]. documented in this encounter Plan of Treatment Upcoming Encounters Date Type Department Care Team (Late st Contact Info) Description 05/15/2024 3:30 PM ULTRASONIC SOLDERER [facility]ment [facility] [place] [address] Pankaj Rosenberg MD [address] [address] 05/25/2024 12:45 PM ULTRASONIC SOLDERER Office Visit [facility] Physical Therapy [address] [place] [address] Pankaj Rosenberg MD [address] [address] Maya Magaña, [place] [address] 05/30/2024 3:40 PM ULTRASONIC SOLDERER Office Visit [facility] Medical [facility] Multispecialty Care - [place] [address] [address] [place] [address] Pankaj Rosenberg MD [facility] [address] [address] 06/20/2024 3:40 PM ULTRASONIC SOLDERER Telemedicine [facility] - [place] [address] [address] [place] [address] Pankaj Rosenberg MD [facility] [address] [address] 06/21/2024 1:00 PM ULTRASONIC SOLDERER Office Visit [facility] Medical Group Orth[facility] & [facility] - [place] [address] [place] [address] Jose Ratliff MD [address] [address] [place] [address] 03/27/2025 1:00 PM ULTRASONIC SOLDERER Office Visit [facility] Medical Group Multispecialty Care - [facility] 3 [facility] [address] [place] [address] Bob Oneal MD 3 [facility] [address] [place] [address] Scheduled Referrals Name Type Priority Associated Diagnoses Orde r Schedule Ambulatory referral to Pulmonology ([facility]) Referral Routine KARRIE (obstructive sleep apnea) Ordered: 08/21/2021 documented as of this encounter Procedures Procedure Name Priority Date/Time Associated Diagnosis Comments HEMOGLOBIN, GLYCOSYLATED Routine 08/21/2021 Type 2 diabetes mellitus with hyperglycemia, without long-term current use of insulin ([facility]) documented in this encounter Results * A1C (BACK OFFICE) (08/21/2021) HGB A1C 5.6 % [address], [place] 08/21/2021 Pankaj Rosenberg MD LABORATORY Final Result [place] [address] [address], [address] [place] [address], documented in this encounter Visit Diagnoses Diagnosis Type 2 diabetes mellitus with hyperglycemia, without long-term current use of insulin ([facility])- Primary KARRIE (obstructive sleep apnea) Obstructive sleep [...] documented as of this encounter Care Teams Air Box Tester Relationship Specialty Start Date End Date Pankaj Rosenberg MD 1188 [facility] [address] [place] [address] PCP - General INTERNAL MEDICINE 06/15/21 documented as of this encounter
--- OUTSIDE RECORDS SUMMARY | 2024-05-13 11:25 | XMS_ITS | Encounter Summary ---
Author Organization [facility] Address [address] [place] [address]. [place], [place] [address] [place] [address] Care Team Providers Care Rn Liaison Name Role Phone Pankaj Rosenberg MD Primary Care Provider [phone] Reason for Visit * Reason Onset Date Comments Medication 09/24/2021 Encounter Details Date Type Department Care Team (Late st Contact Info) Description 09/24/2021 Telephone [facility] Medical Group Multispecialty Care - [place] [address] [address] [place], [place] [address] Pankaj Rosenberg MD [address] [place] [address] 157 [place] [address] Medication Social History Tobacco Use [...] on file Legal Sex Male 2:58 PM APPRENTICE LINEMAN THIRD STEP Gender Identity Male 07/13/2021 5:19 AM APPRENTICE LINEMAN THIRD STEP Sexual Orientation Straight 07/13/2021 5: 19 AM APPRENTICE LINEMAN THIRD STEP COVID-19 Exposure Response Date Recorded In the [...] st Contact Info) Description 05/15/2024 3:30 PM APPRENTICE LINEMAN THIRD STEP Appointment [facility] [place] [address] Pankaj Rosenberg MD [address] [place] [id number] 05/25/2024 12:45 PM APPRENTICE LINEMAN THIRD STEP Office [facility] Physical Therapy [address] [place] [address] Pankaj Rosenberg MD [address] [place] [address] Maya Magaña, [place] [address] 05/30/2024 3:40 PM APPRENTICE LINEMAN THIRD STEP [facility] - [place] [address] [address] [place] [address] [place] [address] [place] [address] 06/20/2024 3:40 PM APPRENTICE LINEMAN THIRD STEP [facility]medicine [facility] - [place] [address] [address] [place] [address] Pankaj Rosenberg MD [address] [facility] [address] [place] [address] 06/21/2024 1:00 PM APPRENTICE LINEMAN THIRD STEP Office Visit [facility] Orthopedic & Sports Medicine - [place] [address] [place] [address] Jose Ratliff MD [address] [address] [place] [address] 03/27/2025 1:00 PM APPRENTICE LINEMAN THIRD STEP Office Visit [facility] Multispecialty Care - [facility] 3 [facility] [address] [place] [address] Bob Oneal MD 3 [facility] [address] [place] [address] documented as of this encounter Visit Diagnoses Not on filedocumented in this encounter Additional Health Concerns Assessment Noted Time PHQ-9 Depression Total Score: 0 08/01/19 22 2:12 PM CDT documented as of this encounter Care Teams Rn Liaison Relationship Specialty Start Date End Date Pankaj Rosenberg MD [address] [facility] [place] [address] PCP - General INTERNAL MEDICINE 06/15/21 documented as of this encounter
--- OUTSIDE RECORDS SUMMARY | 2024-05-13 11:25 | XMS_ITS | Encounter Summary ---
Author Organization [facility] Address [address] [place] [address]. [place], [place] [address] [place] [address] Care Team Providers Care Crown Attacher Name Role Phone Pankaj Rosenberg MD Primary Care Provider [phone] Encounter Details Date Type Department Care Team [...] on file Legal Sex Male 2:58 PM MOTOR VEHICLE REPRESENTATIVE Gender Identity Male 07/13/2021 5:19 AM MOTOR VEHICLE REPRESENTATIVE Sexual Orientation Straight 07/13/2021 5: 19 AM MOTOR VEHICLE REPRESENTATIVE COVID-19 Exposure Response Date Recorded In the last 10 days, have yo u been in contact with someone who was confirmed or suspected to have Coronavirus/COVID-19? No / Unsure 08/26/2021 6:53 AM CDT documented as of this encounter Plan of Treatment Upcoming Encounters Date Type Department Care Team (Late st Contact Info) Description 05/15/2024 3:30 PM MOTOR VEHICLE REPRESENTATIVE Appointment [facility] [address] Pankaj Rosenberg MD 1188 [facility] 157 [place] [address] 05/25/2024 12:45 PM MOTOR VEHICLE REPRESENTATIVE Office Visit [facility] Physical Therapy [facility] [address] Pankaj Rosenberg MD [address] [address] Maya Magaña, [place] [address] 05/30/2024 3:40 PM MOTOR VEHICLE REPRESENTATIVE Office Visit [facility] Medical [place] Multispecialty [facility] - [place] [address] [address] [place] [address] Pankaj Rosenberg MD [address] [address] 06/20/2024 3:40 PM MOTOR VEHICLE REPRESENTATIVE Telemedicine [facility] Medical [facility] - [place] [address] [address] [place] [address] Pankaj Rosenberg MD [address] [address] 06/21/2024 1:00 PM MOTOR VEHICLE REPRESENTATIVE Office Visit [facility] Medical Group Orthopedic & Sports Medicine - [place] [address] [place] [address] Jose Ratliff MD [address] [address] [place], [place] [address] 03/27/2025 1:00 PM MOTOR VEHICLE REPRESENTATIVE Office Visit [facility] Medical [facility] [facility] Multispecialty Care - [facility] 3 [facility] [address] [place] [address] Bob Oneal MD 3 [facility] [address] [place] [address] documented as of this encounter Visit Diagnoses Not on filedocumented in this encounter Additional Health Concerns Assessment Noted Time PHQ-9 Depression Total Score: 0 08/01/19 22 2:12 PM CDT documented as of this encounter Care Teams Crown Attacher Relationship Specialty Start Date End Date Pankaj Rosenberg MD [address] [address] PCP - General INTERNAL MEDICINE 06/15/21 documented as of this encounter
--- OUTSIDE RECORDS SUMMARY | 2024-05-13 11:25 | XMS_ITS | Encounter Summary ---
Author Organization [facility] Address [address] [place] [address]. [place], [place] [address] [place] [address] Care Team Providers Care Forest Fire Prevention Manager Name Role Phone Pankaj Rosenberg MD Primary Care Provider [phone] Reason for Visit * Reason Onset Date Comments Follow Up Call 09/15/2021 Encounter Details Date Type Department Care Team (Late st Contact Info) Description 09/15/2021 Telephone [facility] Medical Group Multispecialty Care - [place] [address] [address] [place], [place] [address] Pankaj Rosenberg MD [address] [place] [address] 157 [place] [address] Follow Up Call Social History [...] on file Legal Sex Male 2:58 PM HIGH RIGGER Gender Identity Male 07/13/2021 5:19 AM HIGH RIGGER Sexual Orientation Straight 07/13/2021 5: 19 AM HIGH RIGGER COVID-19 Exposure Response Date Recorded In the last 10 days, have yo u been in contact with someone who was confirmed or suspected to have Coronavirus/COVID-19? No / Unsure 08/26/2021 6:53 AM CDT documented as of this encounter Progress Notes * Pankaj Rosenberg MD - 09/15/2021 7:28 PM CDT Patient discharged from [facility] 09/15/2021. Please call and run and TCM questions and schedule him. Thanks Pankaj Rosenberg MD Internal Medicine [facility]. documented in this encounter Plan of Treatment Upcoming Encounters Date Type Department Care Team (Late st Contact Info) Description 05/15/2024 3:30 PM HIGH RIGGER Appointment [facility] [place] [address] Pankaj Rosenberg MD [address] [place] [address] 05/25/2024 12:45 PM HIGH RIGGER Office Visit [facility] Physical Therapy [address] [place] [address] [place] [address] [place] [address] Maya Magaña, [place] [address] 05/30/2024 3:40 PM HIGH RIGGER [facility] - [place] [address] [address] [place] [address] [place] [address] [place] [address] 06/20/2024 3:40 PM HIGH RIGGER [facility]medicine [facility] Emergency Department - [place] [address] [address] [place] [address] Pankaj Rosenberg MD 1188 [facility] 157 [place] [address] 06/21/2024 1:00 PM HIGH RIGGER Office Visit [facility] Orthopedic & Sports Medicine - [place] [address] [place] [address] Jose Ratliff MD 670 [facility] [address] [place] [address] 03/27/2025 1:00 PM HIGH RIGGER Office Visit [facility] Multispecialty Care - [facility] 3 [facility] [address] [place] [address] Bob Oneal MD 3 [facility] [address] [place] [address] documented as of this encounter Visit Diagnoses Not on filedocumented in this encounter Additional Health Concerns Assessment Noted Time PHQ-9 Depression Total Score: 0 08/01/19 22 2:12 PM CDT documented as of this encounter Care Teams Forest Fire Prevention Manager Relationship Specialty Start Date End Date Pankaj Rosenberg MD 1188 [facility] 157 [place] [address] PCP - General INTERNAL MEDICINE 06/15/21 documented as of this encounter
--- OUTSIDE RECORDS SUMMARY | 2024-05-13 11:26 | XMS_ITS | Encounter Summary ---
Author Organization [facility] Address [address] [place] [address]. [place], [place] [address] [place] [address] Care Team Providers Care Digital Field Service Technician Name Role Phone Pankaj Rosenberg MD Primary Care Provider [phone] Encounter Details Date Type Department Care Team [...] on file Legal Sex Male 2:58 PM CLEAT FEEDER Gender Identity Male 07/13/2021 5:19 AM CLEAT FEEDER Sexual Orientation Straight 07/13/2021 5: 19 AM CLEAT FEEDER COVID-19 Exposure Response Date Recorded In the last 10 days, have yo u been in contact with someone who was confirmed or suspected to have Coronavirus/COVID-19? No / Unsure 08/18/2021 9:51 AM CDT documented as of this encounter Plan of Treatment Upcoming Encounters Date Type Department Care Team (Late st Contact Info) Description 05/15/2024 3:30 PM CLEAT FEEDER Appointment [facility] [place], [place] [address] Pankaj Rosenberg MD [address] [address] 05/25/2024 12:45 PM CLEAT FEEDER Office Visit [facility] Physical [id number] [address] [place] [address] Pankaj Rosenberg MD 1188 [facility] 157 [place] [address] Maya Magaña, [place] [address] 05/30/2024 3:40 PM CLEAT FEEDER Office Visit [facility] Medical [facility] Multis[facility]ialty [facility] - [place] [address] [facility] [address] [place] [address] Pankaj Rosenberg MD [address] [address] 06/20/2024 3:40 PM CLEAT FEEDER Telemedicine [facility] - [address] [place] [address] Pankaj Rosenberg MD [address] [address] 06/21/2024 1:00 PM CLEAT FEEDER Office Visit [facility] Medical Group Orthopedic & Sports Medicine - [place] [address] [place] [address] Jose Ratliff MD [address] [address] [place] [address] 03/27/2025 1:00 PM CLEAT FEEDER Office Visit [facility] Medical [facility] Multispecialty Care - [facility] 3 [facility], [address] [place] [address] Bob Oneal MD [address] [place] [address] documented as of this encounter Visit Diagnoses Not on filedocumented in this encounter Additional Health Concerns Assessment Noted Time PHQ-9 Depression Total Score: 0 08/01/19 22 2:12 PM CDT documented as of this encounter Care Teams Digital Field Service Technician Relationship Specialty Start Date End Date Pankaj Rosenberg MD [address] [address] PCP - General INTERNAL MEDICINE 06/15/21 documented as of this encounter
--- OUTSIDE RECORDS SUMMARY | 2024-05-13 11:26 | XMS_ITS | Encounter Summary ---
Author Organization [facility] Address [address] [place] [address]. [place], [place] [address] [place] [address] Care Team Providers Care Customs Verifier Name Role Phone Panakj Rosenberg MD Primary Care Provider [phone] Encounter Details Date Type Department Care Team [...] on file Legal Sex Male 2:58 PM CHAIR CAR ATTENDANT Gender Identity Male 07/13/2021 5:19 AM CHAIR CAR ATTENDANT Sexual Orientation Straight 07/13/2021 5: 19 AM CHAIR CAR ATTENDANT COVID-19 Exposure Response Date Recorded In the last 10 days, have yo u been in contact with someone who was confirmed or suspected to have Coronavirus/COVID-19? No / Unsure 08/06/2021 1:59 PM CDT documented as of this encounter Plan of Treatment Upcoming Encounters Date Type Department Care Team (Late st Contact Info) Description 05/15/2024 3:30 PM CHAIR CAR ATTENDANT Appointment [facility] [place], [place] [address] Pankaj Rosenberg MD [address] [address] 05/25/2024 12:45 PM CHAIR CAR ATTENDANT Office Visit [facility] Physical Therapy [facility] [address] [address] Pankaj Rosenberg MD [address] [address] Maya Magaña, [place] [address] 05/30/2024 3:40 PM CHAIR CAR ATTENDANT [facility] [place] [address] [address] [place] [address] Pankaj Rosenberg MD [address] [address] 06/20/2024 3:40 PM CHAIR CAR ATTENDANT [facility] [place] [address] [address] [place] [address] Pankaj Rosenberg MD [address] [address] 06/21/2024 1:00 PM CHAIR CAR ATTENDANT Office Visit [facility] Medical Group [facility] - [place] [address] [place] [address] Jose Ratliff MD [address] [address] [place] [address] 03/27/2025 1:00 PM CHAIR CAR ATTENDANT Office Visit [facility] Medical [facility] Multispecialty Care - [facility] [address] [facility] [address] [place] [phone] Bob Oneal MD [address] [place] [address] documented as of this encounter Visit Diagnoses Not on filedocumented in this encounter Additional Health Concerns Assessment Noted Time PHQ-9 Depression Total Score: 0 08/01/19 2:12 PM CDT documented as of this encounter Care Teams Customs Verifier Relationship Specialty Start Date End Date Pankaj Rosenberg MD [address] [address] PCP - General INTERNAL MEDICINE 06/15/21 documented as of this encounter
--- OUTSIDE RECORDS SUMMARY | 2024-05-13 11:26 | XMS_ITS | Encounter Summary ---
Author Organization [facility] Address [address] [place] [address]. [place] [address] [place] [address] Care Team Providers Care Puller Out Name Role Phone Pankaj Rosenberg MD Primary Care Provider [phone] Reason for Referral * Imaging (Routine) - Closed Specialty Diagnoses / Procedures Referred By Horacio espinoza Referred To Contact RADIOLOGY Diagnoses Gallbladder polyp Procedures US ABD LIMITED Mario Oneal MD [address] [address] Phone: tel: fax: Referral ID Status Reason Start Date Expiration Date Visits Re quested Visits Authorized [id number] Closed 07/31/2021 08/31/2022 1 1 Reason for Visit * Imaging (Routine) - Closed Specialty Diagnoses / Procedures Referred By Horacio espinoza Referred To Contact RADIOLOGY Diagnoses Gallbladder polyp Procedures US ABD LIMITED Mario Oneal MD [address] [address] Phone: tel: fax: Referral ID Status Reason Start Date Expiration Date Visits Re quested Visits Authorized [id number] Closed 07/31/2021 08/31/2022 1 1 Encounter Details Date Type Department Care Team (Latest Contact Info) Description 08/18/2021 9:55 AM CDT - 08/18/2021 11:09 AM CDT Hospital Encounter [facility] [address] [place] [id number] Mario Oneal MD [address] [place] [address] Discharge Disposition: Home or Self Care (Routine [...] on file Legal Sex Male 2:58 PM DEVELOPMENT COORDINATOR Gender Identity Male 07/13/2021 5:19 AM DEVELOPMENT COORDINATOR Sexual Orientation Straight 07/13/2021 5: 19 AM DEVELOPMENT COORDINATOR COVID-19 Exposure Response Date Recorded In the [...] hyperglycemia, without long-term current use of insulin ([facility]) Take 1 tablet (25 mg [...] st Contact Info) Description 05/15/2024 3:30 PM DEVELOPMENT COORDINATOR [facility]ointment [facility] [place] [address] Pankaj Rosenberg MD [address] [address] 05/25/2024 12:45 PM DEVELOPMENT COORDINATOR Office Visit [facility] Physical Therapy [address] [place] [address] Pankaj Rosenberg MD [address] [address] Maya Magaña, [place] [address] 05/30/2024 3:40 PM DEVELOPMENT COORDINATOR Office Visit [facility] Medical [facility] Multispecialty Care - [place] [address] [address] [place] [address] Pankaj Rosenberg MD [address] [address] 06/20/2024 3:40 PM DEVELOPMENT COORDINATOR Telemedicine [facility] [place] [address] [address] [place] [address] Pankaj Rosenberg MD [facility] [address] 06/21/2024 1:00 PM DEVELOPMENT COORDINATOR Office Visit [facility] Medical Group [facility] - [place] [address] [place] [address] Jose Ratliff MD [address] [address] [place] [address] 03/27/2025 1:00 PM DEVELOPMENT COORDINATOR Office Visit [facility] Medical Group Multispecialty Care - [address] [place] [address] Mario Oneal MD [address] [facility] [address] [place] [address] documented as of this encounter Procedures Procedure [...] bile duct measures.4.4 mm. 3. ??Right kidney .9 x 5.4 x 5.9 cm. [...] bile duct measures.4.4 mm. 3. Right kidney mksxfpen87.9 x 5.4 x 5.9 cm. No focal [...] documented as of this encounter Care Teams Puller Out Relationship Specialty Start Date End Date Pankaj Rosenberg MD [address] [address] PCP - General INTERNAL MEDICINE 06/15/21 documented as of this encounter
--- OUTSIDE RECORDS SUMMARY | 2024-05-13 11:26 | XMS_ITS | Encounter Summary ---
Author Organization [facility] Address [address] [place] [address]. [place], [place] [address] [place] [address] Care Team Providers Care Optical Instrument Inspector Name Role Phone Pankaj Rosenberg MD Primary Care Provider [phone] Reason for Visit * Reason Onset Date Comments Follow Up Call 08/17/2021 Encounter Details Date Type Department Care Team (Late st Contact Info) Description 08/17/2021 Telephone [facility] Medical Group Multispecialty Care - [place] [address] [address] [place], [place] [phone] Pankaj Rosenberg MD [address] [place] [address] 157 [place] [address] Follow Up Call Social History [...] on file Legal Sex Male 2:58 PM CLOTHING WORKER Gender Identity Male 07/13/2021 5:19 AM CLOTHING WORKER Sexual Orientation Straight 07/13/2021 5: 19 AM CLOTHING WORKER COVID-19 Exposure Response Date Recorded In the last 10 days, have yo u been in contact with someone who was confirmed or suspected to have Coronavirus/COVID-19? No / Unsure 08/18/2021 9:51 AM CDT documented as of this encounter Progress Notes * Kimmy Hull MA - 08/19/2021 9:15 AM CDT Pt spoke to them yesterday and set an appt up with their office. * Kimmy Hull MA - 08/18/2021 1:56 PM CDT I left the patient a voice mail to call the office back. * Pankaj Rosenberg MD - 08/17/2021 10:18 PM CDT Please let patient know that [facility] is trying to contact him. They can be reached at [phone]. Thanks Pankaj Rosenberg MD Internal Medicine [facility] documented in this encounter Plan of Treatment Upcoming Encounters Date Type Department Care Team (Late st Contact Info) Description 05/15/2024 3:30 PM CLOTHING WORKER Appointment [facility] [place] [address] Pankaj Rosenberg MD [address] [place] [address] 05/25/2024 12:45 PM CLOTHING WORKER Office Visit [facility] Physical Therapy [address] [place] [address] Pankaj Rosenberg MD [facility] [address] [address] Maya Magaña, [place] [address] 05/30/2024 3:40 PM CLOTHING WORKER Office Visit [facility] Multispecialty [facility] - [place] [address] [address] [place] [address] Pankaj Rosenberg MD [address] [place] [address] 06/20/2024 3:40 PM CLOTHING WORKER [facility]icine [facility] - [place] [address] [address] [place] [address] Pankaj Rosenberg MD [address] [place] [address] 06/21/2024 1:00 PM CLOTHING WORKER Office Visit [facility] Orthopedic & Sports Medicine - [place] [address] [place] [address] Jose Ratliff MD [address] [place] [address] 03/27/2025 1:00 PM CLOTHING WORKER Office Visit [facility] Multispecialty Care - [facility] 3 [facility], [address] [place] [address] Bob Oneal MD 3 [facility] [address] [place] [address] documented as of this encounter Visit Diagnoses Not on filedocumented in this encounter Additional Health Concerns Assessment Noted Time PHQ-9 Depression Total Score: 0 08/01/19 22 2:12 PM CDT documented as of this encounter Care Teams Optical Instrument Inspector Relationship Specialty Start Date End Date Pankaj Rosenberg MD [address] [place] [address] PCP - General INTERNAL MEDICINE 06/15/21 documented as of this encounter
--- OUTSIDE RECORDS SUMMARY | 2024-05-13 11:26 | XMS_ITS | Encounter Summary ---
Author Organization [facility] Address [address] [place] [address]. [place], [place] [address] [place] [address] Care Team Providers Care Clinical Project Leader Name Role Phone Pankaj Rosenberg MD Primary Care Provider [phone] Encounter Details Date Type Department Care Team [...] on file Legal Sex Male 2:58 PM CONTROLLER OPERATIONS AND HR MANAGER Gender Identity Male 07/13/2021 5:19 AM CONTROLLER OPERATIONS AND HR MANAGER Sexual Orientation Straight 07/13/2021 5: 19 AM CONTROLLER OPERATIONS AND HR MANAGER COVID-19 Exposure Response Date Recorded In the last 10 days, have yo u been in contact with someone who was confirmed or suspected to have Coronavirus/COVID-19? No / Unsure 08/21/2021 2:04 PM CDT documented as of this encounter Plan of Treatment Upcoming Encounters Date Type Department Care Team (Late st Contact Info) Description 05/15/2024 3:30 PM CONTROLLER OPERATIONS AND HR MANAGER Appointment [facility] [address] Pankaj Rosenberg MD [address] [address] 05/25/2024 12:45 PM CONTROLLER OPERATIONS AND HR MANAGER Office Visit [facility] Physical Therapy [facility] [address] Pankaj Rosenberg MD [address] [address] Maya Magaña, [place] [address] 05/30/2024 3:40 PM CONTROLLER OPERATIONS AND HR MANAGER Office Visit [facility] Medical [facility] Multispecialty Care - [place] [address] [address] [place] [address] Pankaj Rosenberg MD [address] [address] 06/20/2024 3:40 PM CONTROLLER OPERATIONS AND HR MANAGER Telemedicine [facility] [place] - [place] [address] [address] [place] [address] Pankaj Rosenberg MD [address] [address] 06/21/2024 1:00 PM CONTROLLER OPERATIONS AND HR MANAGER Office Visit [facility] Medical Group Orthopedic & Sports Medicine - [place] [address] [place] [address] Jsoe Ratliff MD [address] [address] [place] [address] 03/27/2025 1:00 PM CONTROLLER OPERATIONS AND HR MANAGER Office Visit [facility] Medical Group Multispecialty Care - [facility] 3 [facility], [address] [place] [address] Bob Oneal MD 3 [facility] [address] [place] [address] documented as of this encounter Visit Diagnoses Not on filedocumented in this encounter Additional Health Concerns Assessment Noted Time PHQ-9 Depression Total Score: 0 08/01/19 22 2:12 PM CDT documented as of this encounter Care Teams Clinical Project Leader Relationship Specialty Start Date End Date Pankaj Rosenberg MD 1188 [facility] [address] [place] [address] PCP - General INTERNAL MEDICINE 06/15/21 documented as of this encounter
--- OUTSIDE RECORDS SUMMARY | 2024-05-13 11:26 | XMS_ITS | Encounter Summary ---
Author Organization [facility] Address [address] [place] [address]. [place] [address] [place] [address] Care Team Providers Care President [place] Name Role Phone Pankaj Rosenberg MD Primary Care Provider [phone] Encounter Details Date Type Department Care Team (Late st Contact Info) Description 08/18/2021 Prep for Procedure [facility] [address] [place] [address] Mario Oneal MD [address] [place] [address] [phone] Social History Tobacco Use Types Packs/Day Years [...] on file Legal Sex Male 2:58 PM GRINDING OPERATOR Gender Identity Male 07/13/2021 5:19 AM GRINDING OPERATOR Sexual Orientation Straight 07/13/2021 5: 19 AM GRINDING OPERATOR COVID-19 Exposure Response Date Recorded In the last 10 days, have yo u been in contact with someone who was confirmed or suspected to have Coronavirus/COVID-19? No / Unsure 08/21/2021 2:04 PM CDT documented as of this encounter Plan of Treatment Upcoming Encounters Date Type Department Care Team (Late st Contact Info) Description 05/15/2024 3:30 PM GRINDING OPERATOR Appointment [facility] [place] [address] Pankaj Rosenberg MD [address] [address] 05/25/2024 12:45 PM GRINDING OPERATOR Office Visit [facility] Physical Therapy [address] [place] [address] Pankaj Rosenberg MD [facility] [address] [address] Maya Magaña, [place] [address] 05/30/2024 3:40 PM GRINDING OPERATOR Office Visit [facility] Medical [facility] Multispecialty Care - [place] [address] [place] [address] Pankaj Rosenberg MD [facility] [address] [address] 06/20/2024 3:40 PM GRINDING OPERATOR Telemedicine [facility] Medical [facility] Multispecialty Care - [place] [address] [address] [place] [address] Pankaj Rosenberg MD [facility] [address] [address] 06/21/2024 1:00 PM GRINDING OPERATOR Office Visit [facility] Medical Group [facility]opedic [facility] Sports Medicine - [place] [address] [place], [place] [address] Jose Ratliff MD [address] [address] [place] [address] 03/27/2025 1:00 PM GRINDING OPERATOR Office Visit [facility] Medical Group Multispecialty Care - [facility] [address] [facility] [address] [place] [address] Mario Oneal MD [address] [place] [address] documented as of this encounter Results * ECG 12-Lead (08/18/2021 11:17 AM CDT) 08/18/2021 11:1 7 AM CDT Narrative [facility] RAD - 08/20/2021 9:01 PM CDT ?[facility] [place] ? Test Date: ?2021-08-18 Pat Name: ? CHUCK AUD ? Department: ?? 85 ? Room: ? Gender: ? Male ? Rice Drier: ?? : ?1995 ? Requested By: MARIO ONEAL Order Number: [id number] ? Reading : ?? Logan Rutledge ? Measurements Intervals ?[place] ? Rate: ? 78 ? P: ?29 SC: ? 148 ?QRS: ?53 QRSD: ? 98 ? T: ?39 QT: ? 379 ? QTc: ?434 ? Interpretive Statements SINUS RHYTHM No previous ECG available for comparison Procedure Note Logan Rutledge MD - 08/20/2021 [facility] Test Date: 2021-08-18 Pat Name: CHUCK BARLOW Department: 85 Room: Gender: Male Rice Drier: : 1995 Requested By: MARIO ONEAL Order Number: [id number] Reading MD: Logan Rutledge Measurements Intervals [place] Rate: 78 P: 29 SC: 148 QRS: 53 QRSD: 98 T: 39 QT: 379 QTc: 434 Interpretive Statements SINUS RHYTHM No previous ECG available for comparison us Mario Oneal MD ECG ORDERABLES Final Result Performing Organization Address City/State/[facility] Co de Phone Number [facility] documented in this encounter Visit Diagnoses Diagnosis Pre-op testing- Primary Preoperative examination, unspecified Pre-op testing Preoperative examination, unspecified documented in this encounter Additional Health Concerns Assessment Noted Time PHQ-9 Depression Total Score: 0 08/01/19 22 2:12 PM CDT documented as of this encounter Care Teams President [place] Relationship Specialty Start Date End Date Pankaj Rosenberg MD 1188 [facility] [address] [place] [address] PCP - General INTERNAL MEDICINE 06/15/21 documented as of this encounter
--- OUTSIDE RECORDS SUMMARY | 2024-05-13 11:26 | XMS_ITS | Encounter Summary ---
Author Organization [facility] Address [address] [place] [address]. [place] [address] [place] [address] Care Team Providers Care Clipper Counters Name Role Phone Pankaj Rosenberg MD Primary Care Provider Encounter Details Date Type Department Care Team (Latest Contact Info) Description 08/18/2021 11:10 AM CDT - 08/18/2021 11:59 PM [facility] Hospital Encounter [facility] Cardiopulmonary Services [address] [place] [address] Mario Oneal MD [address] [place] [phone] Discharge Disposition: Home or Self Care (Routine [...] on file Legal Sex Male 2:58 PM URBAN DESIGNER Gender Identity Male 07/13/2021 5:19 AM URBAN DESIGNER Sexual Orientation Straight 07/13/2021 5: 19 AM URBAN DESIGNER COVID-19 Exposure Response Date Recorded In [...] hyperglycemia, without long-term current use of insulin ([facility]) Take 1 tablet (25 mg [...] st Contact Info) Description 05/15/2024 3:30 PM URBAN DESIGNER Appointment [facility] [place] [address] Pankaj Rosenberg MD [address] [place] [address] 05/25/2024 12:45 PM URBAN DESIGNER Office Visit [facility] Physical Therapy [address] [place] [address] Pankaj Rosenberg MD [address] [place] [address] Maya Magaña, [place] [address] 05/30/2024 3:40 PM URBAN DESIGNER Office Visit [facility] Medical [facility] Multispecialty Care - [address] [address] Pankaj Rosenberg MD [address] [place] [address] 06/20/2024 3:40 PM URBAN DESIGNER Telemedicine [facility] Medical [facility] Multispecialty Care - [place] [address] [address] [place] [address] Pankaj Rosenberg MD [address] [place] [address] 06/21/2024 1:00 PM URBAN DESIGNER Office Visit [facility] Orthopedic [facility] Medicine - [place] [address] [place] [address] Jose Ratliff MD [address] [address] [place] [address] 03/27/2025 1:00 PM URBAN DESIGNER Office Visit [facility] Multispecialty Care - [place] [address] [place] [address] Mario Oneal MD [address] [facility] [place] [address] documented as of this encounter Procedures Procedure Name Priority Date/Time Associated Diagnosis Comments ECG 12-LEAD Routine 08/18/2021 11:17 AM CDT Pre-op testing documented in this encounter Results * ECG 12-Lead (08/18/2021 11:17 AM CDT) 08/18/2021 11:1 7 AM CDT Narrative [facility] RAD - 08/20/2021 9:01 PM CDT ?[facility] [place] ? Test Date: ?2021-08-18 Pat Name: ? CHUCK AUD ? Department: ?? 85 ? Room: ? Gender: ? Male ? Tailer Off: ?? : ?1995 ? Requested By: MARIO ONEAL Order Number: [id number] ? Reading : ?? Logan Rutledge ? Measurements Intervals ?[place] ? Rate: ? 78 ? P: ?29 [place]: ? 148 ?QRS: ?53 QRSD: ? 98 ? T: ?39 QT: ? 379 ? QTc: ?434 ? Interpretive Statements SINUS RHYTHM No previous ECG available for comparison Procedure Logan Begum MD - 08/20/2021 [facility] [place] Test Date: 2021-08-18 Pat Name: CHUCK BARLOW Department: 85 Room: Gender: Male Tailer Off: : 1995 Requested By: MARIO ONEAL Order Number: [id number] Reading MD: Logan Rutledge Measurements Intervals [place] Rate: 78 P: 29 W[place]: 148 QRS: 53 QRSD: 98 T: 39 QT: 379 QTc: 434 Interpretive Statements SINUS RHYTHM No previous ECG available for comparison us Mario Oneal MD ECG ORDERABLES Final Result [facility] documented in this encounter Visit Diagnoses Diagnosis Pre-op testing Preoperative examination, unspecified documented in this encounter Additional Health Concerns Assessment Noted Time PHQ-9 Depression Total Score: 0 08/01/19 22 2:12 PM CDT documented as of this encounter Care Teams Clipper Counters Relationship Specialty Start Date End Date Pankaj Rosenberg MD [address] [address] PCP - General INTERNAL MEDICINE 06/15/21 documented as of this encounter
--- OUTSIDE RECORDS SUMMARY | 2024-05-13 11:26 | XMS_ITS | Encounter Summary ---
Author Organization [facility] Address [address] [place] [address]. [place], [place] [address] [place] [address] Care Team Providers Care Physical Therapist Name Role Phone Pankaj Rosenberg MD Primary Care Provider [phone] Reason for Visit * Reason Onset Date Comments Follow Up Call 08/18/2021 Encounter Details Date Type Department Care Team (Late st Contact Info) Description 08/18/2021 Telephone [facility] Medical Group Multispecialty Care - [place] [address] [address] [place], [place] [phone] Pankaj Rosenberg MD [address] [place] [address] 157 [place] [address] Follow Up Call Social History [...] on file Legal Sex Male 2:58 PM WEBBING TACKER Gender Identity Male 07/13/2021 5:19 AM WEBBING TACKER Sexual Orientation Straight 07/13/2021 5: 19 AM WEBBING TACKER COVID-19 Exposure Response Date Recorded In the [...] questions answered. Pankaj Rosenberg MD Internal Medicine [facility]. documented in this encounter Plan of Treatment Upcoming Encounters Date Type Department Care Team (Late st Contact Info) Description 05/15/2024 3:30 PM WEBBING [place] [address] Pankaj Rosenberg MD [address] [place] [address] 05/25/2024 12:45 PM WEBBING TACKER Office Visit [facility] Physical Therapy [address] [place] [address] [phone] [place] [address] [place] [address] Maya Magaña, [place] [address] 05/30/2024 3:40 PM WEBBING TACKER Office Visit [facility] - [address] [address] Pankaj Rosenberg MD [address] [place] [address] 06/20/2024 3:40 PM WEBBING TACKER [facility] [place] [address] [address] [place] [address] Pankaj Rosenberg MD 1188 [facility] 157 [place] [address] 06/21/2024 1:00 PM WEBBING TACKER Office Visit [facility] Medical Group Orthopedic & Sports Medicine - [place] [address] [place] [address] Jose Ratliff MD [address] [address] [place] [address] 03/27/2025 1:00 PM WEBBING TACKER Office Visit [facility] Multispecialty Care - [facility] 3 [facility] [address] [place] [address] Bob Oneal MD 3 [facility] [address] [place] [address] documented as of this encounter Visit Diagnoses Not on filedocumented in this encounter Additional Health Concerns Assessment Noted Time PHQ-9 Depression Total Score: 0 08/01/19 22 2:12 PM CDT documented as of this encounter Care Teams Physical Therapist Relationship Specialty Start Date End Date Pankaj Rosenberg MD 1188 [facility] 157 [place] [address] PCP - General INTERNAL MEDICINE 06/15/21 documented as of this encounter
--- OUTSIDE RECORDS SUMMARY | 2024-05-13 11:26 | XMS_ITS | Encounter Summary ---
Author Organization [facility] Address [address] [place] [address]. [place], [place] [address] [place] [address] Care Team Providers Care Dumbwaiter Operator Name Role Phone Pankaj Rosenberg MD Primary Care Provider [phone] Encounter Details Date Type Department Care Team (Latest Contact Info) Description 08/17/2021 Wheretogett Message Enc [facility] Medical Group Multispecialty Care - [place] [address] [address] [place] [address] [place] [address] [place] [address] 157 [place], [place] [phone] Ear nose and throat appointment Social History [...] on file Legal Sex Male 2:58 PM STIFF LEG DERRICK OPERATOR Gender Identity Male 07/13/2021 5:19 AM STIFF LEG DERRICK OPERATOR Sexual Orientation Straight 07/13/2021 5: 19 AM STIFF LEG DERRICK OPERATOR COVID-19 Exposure Response Date Recorded In the last 10 days, have yo u been in contact with someone who was confirmed or suspected to have Coronavirus/COVID-19? No / Unsure 08/18/2021 9:51 AM CDT documented as of this encounter Plan of Treatment Upcoming Encounters Date Type Department Care Team (Late st Contact Info) Description 05/15/2024 3:30 PM STIFF LEG DERRICK OPERATOR Appointment [facility] [place] [address] Pankaj Rosenberg MD [address] [address] 05/25/2024 12:45 PM STIFF LEG DERRICK OPERATOR Office Visit [facility] Physical Therapy [address] [place] [address] Pankaj Rosenberg MD [facility] [address] [address] Maya Magaña, [place] [address] 05/30/2024 3:40 PM STIFF LEG DERRICK OPERATOR Office Visit [facility] Medical [facility] Multispecialty Care - [address] [address] Pankaj Rosenberg MD [address] [address] 06/20/2024 3:40 PM STIFF LEG DERRICK OPERATOR Telemedicine [facility] Medical [facility] Multispecialty Care - [address] [address] Pankaj Rosenberg MD [address] [address] 06/21/2024 1:00 PM STIFF LEG DERRICK OPERATOR Office Visit [facility] Medical Group Orthopedic & Sports Medicine - [place] [address] [place], [place] [address] Jose Ratliff MD [address] [address] 03/27/2025 1:00 PM STIFF LEG DERRICK OPERATOR Office Visit [facility] Medical Group Multispecialty Care - [facility] 3 [facility] [address] [place] [address] Bob Oneal MD 3 [facility] [address] [place] [address] documented as of this encounter Visit Diagnoses Not on filedocumented in this encounter Additional Health Concerns Assessment Noted Time PHQ-9 Depression Total Score: 0 08/01/19 22 2:12 PM CDT documented as of this encounter Care Teams Dumbwaiter Operator Relationship Specialty Start Date End Date Pankaj Rosenberg MD 1188 [facility] [address] [place] [address] PCP - General INTERNAL MEDICINE 06/15/21 documented as of this encounter
--- OUTSIDE RECORDS SUMMARY | 2024-05-13 11:26 | XMS_ITS | Encounter Summary ---
Author Organization [facility] Address [address] [place] [address]. [place] [address] [place] [address] Care Team Providers Care Heel Stainer Name Role Phone Pankaj Rosenberg MD Primary Care Provider [phone] Reason for Visit * Reason Onset Date Comments Results 08/19/2021 Encounter Details Date Type Department Care Team (Late st Contact Info) Description 08/19/2021 Telephone [facility] Medical Group Multispecialty Care - [address] [place] [phone] Bob Oneal MD 3 [facility] [address] [place] [address] Results Social History Tobacco Use Types Packs/Day [...] file Legal Sex Male 2:58 PM CLINICAL PSYCHOLOGIST Gender Identity Male 07/13/2021 5:19 AM CLINICAL PSYCHOLOGIST Sexual Orientation Straight 07/13/2021 5: 19 AM CLINICAL PSYCHOLOGIST COVID-19 Exposure Response Date Recorded In the last 10 days, have yo u been in contact with someone who was confirmed or suspected to have Coronavirus/COVID-19? No / Unsure 08/18/2021 9:51 AM CDT documented as of this encounter Progress Notes * Gloria Braxton - 08/19/2021 11:14 AM CDT Chuck called and asked to speak with someone regarding his US results. Call transferred to [place]. documented in this encounter Plan of Treatment Upcoming Encounters Date Type Department Care Team (Late st Contact Info) Description 05/15/2024 3:30 PM CLINICAL PSYCHOLOGIST Appointment [facility] [place] [address] Pankaj Rosenberg MD [address] [place] [address] 05/25/2024 12:45 PM CLINICAL PSYCHOLOGIST Office Visit [facility] Physical Therapy [address] [place] [address] Pankaj Rosenberg MD [address] [place] [address] Maya Magaña, [place] [address] 05/30/2024 3:40 PM CLINICAL PSYCHOLOGIST [facility] - [place] [address] [address] [place] [address] Pankaj Rosenberg MD [address] [place] [address] 06/20/2024 3:40 PM CLINICAL PSYCHOLOGIST [facility]icine [facility] - [place] [address] [address] [place] [address] Pankaj Rosenberg MD 1188 [facility] 157 [place] [address] 06/21/2024 1:00 PM CLINICAL PSYCHOLOGIST Office Visit [facility] Orthopedic & Sports Medicine - [place] [address] [place] [address] Jose Ratliff MD [address] [address] [place] [address] 03/27/2025 1:00 PM CLINICAL PSYCHOLOGIST Office Visit [facility] Multispecialty Care - [facility] 3 [facility] [address] [place] [address] Bob Oneal MD 3 [facility] [address] [place] [address] documented as of this encounter Visit Diagnoses Not on filedocumented in this encounter Additional Health Concerns Assessment Noted Time PHQ-9 Depression Total Score: 0 08/01/19 2:12 PM CDT documented as of this encounter Care Teams Heel Stainer Relationship Specialty Start Date End Date Pankaj Rosenberg MD 1188 [facility] 157 [place] [address] PCP - General INTERNAL MEDICINE 06/15/21 documented as of this encounter
--- OUTSIDE RECORDS SUMMARY | 2024-05-13 11:27 | XMS_ITS | Encounter Summary ---
Author Organization [facility] Address [address] [place] [address]. [place], [place] [address] [place] [address] Care Team Providers Care Educational Program Assistant Name Role Phone Pankaj Rosenberg MD Primary Care Provider [phone] Reason for Visit * Sleep Lab (Routine) - Closed Specialty Diagnoses / Procedures Referred By Contac t Referred To Contact Diagnoses Chronic fatigue Suspected sleep apnea Procedures Limited Channel Unattended (Home Study) (G0399) Pankaj Rosenberg MD [address] [address] Phone: tel: fax: Referral ID Status Reason Start Date Expiration Date Visits Re quested Visits Authorized [id number] Closed 06/15/2021 07/16/2022 1 1 Encounter Details Date Type Department Care Team (Latest Contact Info) Description 08/06/2021 2:00 PM CDT - 08/06/2021 11:59 PM CDT Hospital Encounter [facility] Sleep Lab [address] [place] [address] Pankaj Rosenberg MD [address] [address] Discharge Disposition: Home or Self [...] on file Legal Sex Male 2:58 PM MANAGEMENT INSTRUCTOR Gender Identity Male 07/13/2021 5:19 AM MANAGEMENT INSTRUCTOR Sexual Orientation Straight 07/13/2021 5: 19 AM MANAGEMENT INSTRUCTOR COVID-19 Exposure Response Date Recorded In [...] long-term current use of insulin ([facility]) Take 1 tablet (25 mg [...] CDTAssociated Order(s): LIMITED CHANNEL UNATTENDED (HOME STUDY) [facility] O???[place], [place] HOME SLEEP STUDY INTERPRETATION PATIENT NAME: Chuck Barlow DATE OF : 1995 DATE OF SERVICE: 08/06/2021 Ordering Phy Exam Description Pankaj Rosenberg M.D. Home Sleep Study ATTENDING PHYSICIAN: Dr. Jian Liu REFERRING PHYSICIAN: Dr. Pankaj Rosenberg SUMMARY DATA Sleep Study/ Architecture: This patient was studied using [employer] NightOne devices using 1 RIP effort belt [...] 83 73.0 Assessment/Plan: Severe Obstructive Sleep Apnea. Bazine treatment option should be discussed with the [...] exacerbate snoring and sleep-related problems, such as GANG PLANK WORKMAN depressants, especially at bedtime. This document was electronically signed by: Jian Liu M.D. on 08/11/2021 at 11:37 AM. documented in this encounter Plan of Treatment Upcoming Encounters Date Type Department Care Team (Late st Contact Info) Description 05/15/2024 3:30 PM MANAGEMENT INSTRUCTOR Appointment [facility] [place] [place] [address] Pankaj Rosenberg MD [address] [place] [address] 05/25/2024 12:45 PM MANAGEMENT INSTRUCTOR Office Visit [facility] Physical Therapy [address] [place] [address] Pankaj Rosenberg MD [address] [place] [address] Maya Magaña, [place] [address] 05/30/2024 3:40 PM MANAGEMENT INSTRUCTOR Office Visit [facility] Emergency Department - [address] [address] Pankaj Rosenberg MD [address] [place] [address] 06/20/2024 3:40 PM MANAGEMENT INSTRUCTOR Telemedicine [place] [address] [place] [address] Pankaj Rosenberg MD [address] [place] [address] 06/21/2024 1:00 PM MANAGEMENT INSTRUCTOR Office Visit [facility] Medical [facility] Orthopedic & Sports Medicine - [place] [address] [place] [address] Jose Ratliff MD [address] [place] [address] [place] [address] 03/27/2025 1:00 PM MANAGEMENT INSTRUCTOR Office Visit [facility] Multispecialty Care - [facility] 3 [facility] [place] [facility] [address] [place] [address] Bob Oneal MD 3 [facility] [address] [place] [address] documented as of this encounter Procedures Procedure Name Priority Date/Time Associated Diagnosis Comments LIMITED CHANNEL UNATTENDED (HOME STUDY) Routine 08/06/2021 2:00 PM CDT Chronic fatigue Suspected sleep apnea documented in this encounter Results * Limited Channel Unattended (Home Study) (G0399) (08/06/2021 2:00 PM CDT) Narrative [facility] SLEEP LAB - 08/06/2021 2:00 PM CDT Jian Liu MD ? 08/12/2021 10:53 AM [facility] [place] [facility] [place] HOME SLEEP STUDY INTERPRETATION PATIENT NAME: Chuck Barlow DATE OF : 1995 DATE OF SERVICE: 08/06/2021 Ordering Phy Exam Description Pankaj Rosenberg M.D. Home Sleep Study ATTENDING PHYSICIAN: Dr. Jian Lui REFERRING PHYSICIAN: Dr. Pankaj Rosenberg SUMMARY DATA Sleep Study/ Architecture: This patient was studied using [employer] devices using 1 RIP effort belt and [...] 83 73.0 Assessment/Plan: Severe Obstructive Sleep Apnea. Bazine treatment option should be discussed with the [...] exacerbate snoring and sleep-related problems, such as GANG PLANK WORKMAN depressants, especially at bedtime. This document was electronically signed by: Jian Liu M.D. on 08/11/2021 at 11:37 AM. us Pankaj Rosenberg MD SLEEP CENTER ORDERABLES Final Re sult [facility] SLEEP LAB documented in this encounter Visit Diagnoses Not on filedocumented in this encounter Additional Health Concerns Assessment Noted Time PHQ-9 Depression Total Score: 0 08/01/19 22 2:12 PM CDT documented as of this encounter Care Teams Educational Program Assistant Relationship Specialty Start Date End Date Pankaj Rosenberg MD [address] [address] PCP - General INTERNAL MEDICINE 06/15/21 documented as of this encounter
--- OUTSIDE RECORDS SUMMARY | 2024-05-13 11:27 | XMS_ITS | Encounter Summary ---
Author Organization [facility] Address [address] [place] [address]. [place], [place] [address] [place] [address] Care Team Providers Care Construction Manager Name Role Phone Pankaj Rosenberg MD Primary Care Provider [phone] Encounter Details Date Type Department Care Team [...] file Legal Sex Male 2:58 PM CLINICAL PATHOLOGIST Gender Identity Male 07/13/2021 5:19 AM CLINICAL PATHOLOGIST Sexual Orientation Straight 07/13/2021 5: 19 AM CLINICAL PATHOLOGIST COVID-19 Exposure Response Date Recorded In the last 10 days, have yo u been in contact with someone who was confirmed or suspected to have Coronavirus/COVID-19? No / Unsure 07/31/2021 1:58 PM CDT documented as of this encounter Plan of Treatment Upcoming Encounters Date Type Department Care Team (Late st Contact Info) Description 05/15/2024 3:30 PM CLINICAL PATHOLOGIST Appointment [facility] [place], [place] [address] Pankaj Rosenberg MD [address] [address] 05/25/2024 12:45 PM CLINICAL PATHOLOGIST Office Visit [facility] Physical Therapy [facility] [address] [address] Pankaj Rosenberg MD [address] [address] Maya Magaña, [place] [address] 05/30/2024 3:40 PM CLINICAL PATHOLOGIST [facility] [place] [address] [address] [place] [address] Pankaj Rosenberg MD [address] [address] 06/20/2024 3:40 PM CLINICAL PATHOLOGIST [facility]medicine [facility] [place] [address] [address] [place] [address] Pankaj Rosenberg MD [address] [address] 06/21/2024 1:00 PM CLINICAL PATHOLOGIST Office Visit [facility] Medical Group Orthopedic & Sports Medicine - [place] [address] [place] [address] Jose Ratliff MD [address] [address] [place] [address] 03/27/2025 1:00 PM CLINICAL PATHOLOGIST Office Visit [facility] Medical [facility] Multispecialty Care - [facility] 3 [facility] [address] [place] [phone] Bob Oneal MD [address] [place] [address] documented as of this encounter Visit Diagnoses Not on filedocumented in this encounter Additional Health Concerns Assessment Noted Time PHQ-9 Depression Total Score: 0 08/01/19 2:12 PM CDT documented as of this encounter Care Teams Construction Manager Relationship Specialty Start Date End Date Pankaj Rosenberg MD [address] [address] PCP - General INTERNAL MEDICINE 06/15/21 documented as of this encounter
--- OUTSIDE RECORDS SUMMARY | 2024-05-13 11:27 | XMS_ITS | Encounter Summary ---
Author Organization [facility] Address [address] [place] [address]. [place], [place] [address] [place] [address] Care Team Providers Care Director Of Vendor Management Name Role Phone Pankaj Rosenberg MD Primary Care Provider [phone] Reason for Visit * Reason Onset Date Comments Medication 08/04/2021 Encounter Details Date Type Department Care Team (Late st Contact Info) Description 08/04/2021 Telephone [facility] Medical Group Multispecialty Care - [place] [address] [address] [place] [address] Pankaj Rosenberg MD [address] [place] [address] 157 [place] [address] Medication Social History Tobacco Use [...] on file Legal Sex Male 2:58 PM TRANSIT PLANNER Gender Identity Male 07/13/2021 5:19 AM TRANSIT PLANNER Sexual Orientation Straight 07/13/2021 5: 19 AM TRANSIT PLANNER COVID-19 Exposure Response Date Recorded In the [...] to Farx[employer]. Pankaj Rosenberg MD Internal Medicine [facility]. documented in this encounter Plan of Treatment Upcoming Encounters Date Type Department Care Team (Late st Contact Info) Description 05/15/2024 3:30 PM TRANSIT PLANNER Appointment [facility] [place] [address] Pankaj Rosenberg MD [address] [place] [address] 05/25/2024 12:45 PM TRANSIT PLANNER Office Visit [facility] Physical Therapy [address] [place] [address] Pankaj Rosenberg MD [address] [address] Maya Magaña, [place] [address] 05/30/2024 3:40 PM TRANSIT PLANNER [facility] - [place] [address] [place] [address] [place] [address] [place] [address] 06/20/2024 3:40 PM TRANSIT PLANNER [facility]medicine [facility] - [place] [address] [address] [place] [address] Pankaj Rosenberg MD 1188 [facility] 157 [place] [address] 06/21/2024 1:00 PM TRANSIT PLANNER Office Visit [facility] Orthopedic & Sports Medicine - [place] [address] [place] [address] Jose Ratliff MD [address] [place] [address] [place] [address] 03/27/2025 1:00 PM TRANSIT PLANNER Office Visit [facility] Multispecialty Care - [facility] 3 [facility] [address] [place] [address] Bob Oneal MD 3 [facility] [address] [place] [address] documented as of this encounter Visit Diagnoses Diagnosis Type 2 diabetes mellitus with hyperglycemia, without long-term current use of insulin ([facility])- Primary documented in this encounter Additional Health Concerns Assessment Noted Time PHQ-9 Depression Total Score: 0 08/01/19 22 2:12 PM CDT documented as of this encounter Care Teams Director Of Vendor Management Relationship Specialty Start Date End Date Pankaj Rosenberg MD [address] [address] PCP - General INTERNAL MEDICINE 06/15/21 documented as of this encounter
--- OUTSIDE RECORDS SUMMARY | 2024-05-13 11:27 | XMS_ITS | Encounter Summary ---
Author Organization [facility] Address [address] [place] [address]. [place], [place] [address] [place] [address] Care Team Providers Care Cataloging Assistant Name Role Phone Pankaj Rosenberg MD Primary Care Provider [phone] Reason for Visit * Reason Onset Date Comments Referral 07/27/2021 Encounter Details Date Type Department Care Team (Late st Contact Info) Description 07/27/2021 Telephone [facility] Multispecialty Care - [place] [address] [address] [place] [address] Pankaj Rosenberg MD [address] [place] [address] 157 [place] [address] Referral Social History Tobacco Use [...] on file Legal Sex Male 2:58 PM DOG DAY CARE ATTENDANT Gender Identity Male 07/13/2021 5:19 AM DOG DAY CARE ATTENDANT Sexual Orientation Straight 07/13/2021 5: 19 AM DOG DAY CARE ATTENDANT COVID-19 Exposure Response Date Recorded In the last 10 days, have yo u been in contact with someone who was confirmed or suspected to have Coronavirus/COVID-19? No / Unsure 07/13/2021 1:21 PM DOG DAY CARE ATTENDANT documented as of this encounter Progress Notes * Pankaj Rosenberg MD - 07/27/2021 1:38 PM CDT ENT not accepting his current insurance. Referral center notified. documented in this encounter Plan of Treatment Upcoming Encounters Date Type Department Care Team (Late st Contact Info) Description 05/15/2024 3:30 PM DOG DAY CARE ATTENDANT Appointment [facility] [place] [address] Pankaj Rosenberg MD [address] [address] 05/25/2024 12:45 PM DOG DAY CARE ATTENDANT Office Visit [facility] Physical Therapy [address] [place] [address] Pankaj Rosenberg MD [address] [address] Maya Magaña, [place] [address] 05/30/2024 3:40 PM DOG DAY CARE ATTENDANT Office Visit [facility] - [place] [address] [place] [address] aPnkaj Rosenberg MD [address] [address] 06/20/2024 3:40 PM DOG DAY CARE ATTENDANT Telemedicine [place] [address] [address] [place] [address] Pankaj Rosenberg MD [address] [address] 06/21/2024 1:00 PM DOG DAY CARE ATTENDANT Office Visit [facility] Medical Group Orthopedic & Sports Medicine - [place] [address] [place] [address] Jose Ratliff MD [address] [address] [place] [address] 03/27/2025 1:00 PM DOG DAY CARE ATTENDANT Office Visit [facility] Multispecialty Care - [facility] 3 [facility] [address] [place] [address] Bob Oneal MD [address] [facility] [address] [place] [address] documented as of this encounter Visit Diagnoses Not on filedocumented in this encounter Additional Health Concerns Assessment Noted Time PHQ-9 Depression Total Score: 1 06/15/19 22 12:13 PM DOG DAY CARE ATTENDANT documented as of this encounter Care Teams Cataloging Assistant Relationship Specialty Start Date End Date Pankaj Rosenberg MD [address] [address] PCP - General INTERNAL MEDICINE 06/15/21 documented as of this encounter
--- OUTSIDE RECORDS SUMMARY | 2024-05-13 11:27 | XMS_ITS | Encounter Summary ---
Author Organization [facility] Address [address] [place] [address]. [place], [place] [address] [place] [address] Care Team Providers Care Mig Tig Welder Name Role Phone Pankaj Rosenberg MD Primary Care Provider [phone] Encounter Details Date Type Department Care Team (Latest Contact Info) Description 08/05/2021 FFFavst Message Enc [facility] Medical Group Multispecialty Care - [place] [address] [address] [place] [address] Pankaj Rosenberg MD [address] [place] [address] 157 [place], [place] [id number] diabetes medication Social History Tobacco Use Types [...] on file Legal Sex Male 2:58 PM AIRBORNE ELECTRONICS ANALYST Gender Identity Male 07/13/2021 5:19 AM AIRBORNE ELECTRONICS ANALYST Sexual Orientation Straight 07/13/2021 5: 19 AM AIRBORNE ELECTRONICS ANALYST COVID-19 Exposure Response Date Recorded In the last 10 days, have yo u been in contact with someone who was confirmed or suspected to have Coronavirus/COVID-19? No / Unsure 08/06/2021 1:59 PM CDT documented as of this encounter Plan of Treatment Upcoming Encounters Date Type Department Care Team (Late st Contact Info) Description 05/15/2024 3:30 PM AIRBORNE ELECTRONICS ANALYST Appointment [facility] [place] [address] Pankaj Rosenberg MD [address] [address] 05/25/2024 12:45 PM AIRBORNE ELECTRONICS ANALYST Office Visit [facility] Physical Therapy [address] [place] [address] Pankaj Rosenberg MD [facility] [address] [address] Maya Magaña, [place] [address] 05/30/2024 3:40 PM AIRBORNE ELECTRONICS ANALYST Office Visit [facility] Medical [facility] Multispecialty Care - [address] [address] Pankaj Rosenberg MD [facility] [address] [address] 06/20/2024 3:40 PM AIRBORNE ELECTRONICS ANALYST Telemedicine [facility] Medical [facility] Multispecialty Care - [place] [address] [address] [place] [address] Pankaj Rosenberg MD [facility] [address] [address] 06/21/2024 1:00 PM AIRBORNE ELECTRONICS ANALYST Office Visit [facility] Medical Group Orthopedic & Sports Medicine - [place] [address] [place] [address] Jose Ratliff MD [address] [address] [place] [address] 03/27/2025 1:00 PM AIRBORNE ELECTRONICS ANALYST Office Visit [facility] Medical Group Multispecialty Care - [facility] 3 [facility]., [address] [place] [address] Bob Oneal MD 3 [facility] [address] [place] [address] documented as of this encounter Visit Diagnoses Not on filedocumented in this encounter Additional Health Concerns Assessment Noted Time PHQ-9 Depression Total Score: 0 08/01/19 22 2:12 PM CDT documented as of this encounter Care Teams Mig Tig Welder Relationship Specialty Start Date End Date Pankaj Rosenberg MD [address] [facility] [address] [place] [address] PCP - General INTERNAL MEDICINE 06/15/21 documented as of this encounter
--- OUTSIDE RECORDS SUMMARY | 2024-05-13 11:27 | XMS_ITS | Encounter Summary ---
Author Organization [facility] Address [address] [place] [address]. [place], [place] [address] [place] [address] Care Team Providers Care Car Tracer Name Role Phone Pankaj Rosenberg MD Primary Care Provider Reason for Referral * Imaging (Routine) - Closed Specialty Diagnoses / Procedures Referred By Horacio espinoza Referred To Contact RADIOLOGY Diagnoses Gallbladder polyp Procedures US ABD LIMITED Mario Oneal MD [address] [place] [address] [place] [address] Phone: tel: fax: Referral ID Status Reason Start Date Expiration Date Visits Re quested Visits Authorized [id number] Closed 07/31/2021 08/31/2022 1 1 Reason for Visit * Reason Comments New Patient GERD * Consultation (Routine) - Closed Specialty Diagnoses / Procedures Referred By Horacio espinoza Referred To Contact GASTROENTEROLOGY Diagnoses Gastroesophageal reflux disease without esophagitis Pankaj Rosenberg MD [address] [address] Phone: tel: fax: [facility] Medical Group Multispecialty Care - [address] [place] [address] Phone: tel: fax: Referral ID Status Reason Start Date Expiration Date Visits Re quested Visits Authorized [id number] Closed 07/13/2021 08/14/2022 99 99 Encounter Details Date Type Department Care Team (Latest Contact Info) Description 07/31/2021 2:00 PM CDT Office Visit [facility]ty [facility] [address] [address] Mario Oneal MD [address] [place] [address] New Patient (GERD) Social History Tobacco [...] on file Legal Sex Male 2:58 PM JOY LOADING MACHINE OPERATOR Gender Identity Male 07/13/2021 5:19 AM JOY LOADING MACHINE OPERATOR Sexual Orientation Straight 07/13/2021 5: 19 AM JOY LOADING MACHINE OPERATOR COVID-19 Exposure Response Date Recorded [...] st Contact Info) Description 05/15/2024 3:30 PM JOY LOADING MACHINE OPERATOR Appointment [facility] [place] [address] Pankaj Rosenberg MD [address] [place] [address] 05/25/2024 12:45 PM JOY LOADING MACHINE OPERATOR Office Visit [facility] Physical Therapy [address] [place] [address] Pankaj Rosenberg MD [address] [place] [address] Maya Magaña, [place] [address] 05/30/2024 3:40 PM JOY LOADING MACHINE OPERATOR [facility] [place] [address] [address] [place] [address] Pankaj Rosenberg MD [address] [place] [address] 06/20/2024 3:40 PM JOY LOADING MACHINE OPERATOR Telemedicine [facility] [address] [address] [place] [address] Pankaj Rosenberg MD [address] [place] [address] 06/21/2024 1:00 PM JOY LOADING MACHINE OPERATOR Office Visit [facility] Orthopedic & Sports Medicine - [place] [address] [place] [address] Jose Ratliff MD [address] [place] [address] [place] [address] 03/27/2025 1:00 PM JOY LOADING MACHINE OPERATOR Office Visit [facility] Multispecialty Care - [facility] [address] [facility] [address] [place] [address] Mario Oneal MD [address] [facility] [place] [address] documented as of this encounter Results * [...] bile duct measures.4.4 mm. 3. ??Right kidney uhteioqz23.9 x 5.4 x 5.9 cm. No focal [...] bile duct measures.4.4 mm. 3. Right kidney exrpjhuz86.9 x 5.4 x 5.9 cm. No focal [...] documented as of this encounter Care Teams Car Tracer Relationship Specialty Start Date End Date Pankaj Rosenberg MD [address] [address] PCP - General INTERNAL MEDICINE 06/15/21 documented as of this encounter
--- OUTSIDE RECORDS SUMMARY | 2024-05-13 11:27 | XMS_ITS | Encounter Summary ---
Author Organization [facility] Address [address] [place] [address]. [place] [address] [place] [address] Care Team Providers Care Life Trainer Name Role Phone Pankaj Rosenberg MD Primary Care Provider [phone] Reason for Visit * Reason Onset Date Comments Question 07/30/2021 Returned Call 07/30/2021 Encounter Details Date Type Department Care Team (Late st Contact Info) Description 07/30/2021 Telephone [facility] Medical Group Multispecialty Care - [address] [place] [phone] Bob Onael MD [address] [place] [address] [address] [place], [place] [phone] Question; Returned Call Social History Tobacco Use [...] on file Legal Sex Male 2:58 PM PIE BAKER Gender Identity Male 07/13/2021 5:19 AM PIE BAKER Sexual Orientation Straight 07/13/2021 5: 19 AM PIE BAKER COVID-19 Exposure Response Date Recorded In the last 10 days, have yo u been in contact with someone who was confirmed or suspected to have Coronavirus/COVID-19? No / Unsure 07/13/2021 1:21 PM PIE BAKER documented as of this encounter Progress Notes * Violeta Gutierrez - 07/30/2021 11:34 AM CDT Pt returned call. I relayed the below message. Pt is ok with seeing Lily for his BANKING ANALYST appt on 07/31 No call back needed unless there are additional questions or concerns * Jennifer Dolan - 07/30/2021 8:26 AM CDT LVM for pt to give the office a call, patient has an appt with Dr. Oneal on 07/31/2021 in [place]. BANKING ANALYST Lily can see the patient for the visit if it's okay. documented in this encounter Plan of Treatment Upcoming Encounters Date Type Department Care Team (Late st Contact Info) Description 05/15/2024 3:30 PM PIE BAKER Appointment [place] [address] Pankaj Rosenberg MD [address] [place] [address] 05/25/2024 12:45 PM PIE BAKER Office Visit [facility] Physical Therapy [address] [place] [address] [place] [address] [place] [address] Maya Magaña, [place] [address] 05/30/2024 3:40 PM PIE BAKER Office Visit [facility] Multispecialty Care - [place] [address] [address] [place] [address] Pankaj Rosenberg MD [address] [address] 06/20/2024 3:40 PM PIE BAKER Telemedicine [facility] Multispecialty Care - [place] [address] [address] [place] [address] Pankaj Rosenberg MD [address] [address] 06/21/2024 1:00 PM PIE BAKER [facility] Orthopedic & Sports Medicine - [place] [address] [place] [address] Jose Ratliff MD 670 [facility] [address] [place] [address] 03/27/2025 1:00 PM PIE BAKER Office Visit [facility] Multispecialty Care - [facility] [address] [facility], [address] [place] [address] Bob Oneal MD 3 [facility] [address] [place] [address] documented as of this encounter Visit Diagnoses Not on filedocumented in this encounter Additional Health Concerns Assessment Noted Time PHQ-9 Depression Total Score: 1 06/15/19 22 12:13 PM PIE BAKER documented as of this encounter Care Teams Life Trainer Relationship Specialty Start Date End Date Pankaj Rosenberg MD [address] [place] [address] PCP - General INTERNAL MEDICINE 06/15/21 documented as of this encounter
--- OUTSIDE RECORDS SUMMARY | 2024-05-13 11:27 | XMS_ITS | Encounter Summary ---
Author Organization [facility] Address [address] [place] [address]. [place] [address] [place] [address] Care Team Providers Care Merchandising Specialist Name Role Phone Pankaj Rosenberg MD Primary Care Provider [phone] Reason for Referral * Surgical (Routine) - Closed Specialty Diagnoses / Procedures Referred By Contac t Referred To Contact Diagnoses Nausea and vomiting, unspecified vomiting type Change in bowel function Epigastric burning sensation Procedures Case request operating room: EGD, COLONOSCOPY DIAGNOSTIC WITH/WITHOUT SPECIMEN BRUSH/WASH Bob Oneal MD 3 [facility] [address] [place] [address] Phone: tel: fax: Referral ID Status Reason Start Date Expiration Date Visits Re quested Visits Authorized [id number] Closed 08/03/2021 09/03/2022 1 1 Encounter Details Date Type Department Care Team (Late st Contact Info) Description 08/03/2021 Orders Only [facility] Medical Group Multispecialty Care - [facility] 3 [facility] [address] [place] [address] Bob Oneal MD 3 [facility] [address] [place], [place] [phone] Social History Tobacco Use Types Packs/Day Years [...] on file Legal Sex Male 2:58 PM COLLECTIONS ASSISTANT Gender Identity Male 07/13/2021 5:19 AM COLLECTIONS ASSISTANT Sexual Orientation Straight 07/13/2021 5: 19 AM COLLECTIONS ASSISTANT COVID-19 Exposure Response Date Recorded In the last 10 days, have yo u been in contact with someone who was confirmed or suspected to have Coronavirus/COVID-19? No / Unsure 08/06/2021 1:59 PM CDT documented as of this encounter Plan of Treatment Upcoming Encounters Date Type Department Care Team (Late st Contact Info) Description 05/15/2024 3:30 PM COLLECTIONS ASSISTANT Appointment [facility] [place] [address] Pankaj Rosenberg MD [address] [place] [id number] 05/25/2024 12:45 PM COLLECTIONS ASSISTANT Office Visit [facility] Physical Therapy [address] [place] [phone] Pankaj Rosenberg MD [address] [place] [address] Maya Magaña, [place] [address] 05/30/2024 3:40 PM COLLECTIONS ASSISTANT Office Visit [facility] Medical Group Multispecialty Care - [place] [address] [address] [place] [address] Pankaj Rosenberg MD [address] [place] [address] 06/20/2024 3:40 PM COLLECTIONS ASSISTANT Telemedicine [facility] Multispecialty [facility] - [place] [address] [address] [place] [address] Pankaj Rosenberg MD [address] [address] 06/21/2024 1:00 PM COLLECTIONS ASSISTANT Office Visit [facility] Orthopedic & Sports Medicine - [place] [address] [place] [address] Jose Ratliff MD 670 [facility] [address] [place] [address] 03/27/2025 1:00 PM COLLECTIONS ASSISTANT [facility] 3 [facility], [address] [place] [address] Bob Oneal MD 3 [facility] [address] [place] [address] Scheduled Orders Name Type Priority Associated Diagnoses [...] documented as of this encounter Care Teams Merchandising Specialist Relationship Specialty Start Date End Date Pankaj Rosenberg MD [address] [address] PCP - General INTERNAL MEDICINE 06/15/21 documented as of this encounter
--- OUTSIDE RECORDS SUMMARY | 2024-05-13 11:27 | XMS_ITS | Encounter Summary ---
Author Organization [facility] Address [address] [place] [address]. [place], [place] [address] [place] [address] Care Team Providers Care Computer Console Operator Name Role Phone Pankaj Rosenberg MD Primary Care Provider [phone] Encounter Details Date Type Department Care Team [...] on file Legal Sex Male 2:58 PM FREE LANCE MODEL Gender Identity Male 07/13/2021 5:19 AM FREE LANCE MODEL Sexual Orientation Straight 07/13/2021 5: 19 AM FREE LANCE MODEL COVID-19 Exposure Response Date Recorded In the last 10 days, have yo u been in contact with someone who was confirmed or suspected to have Coronavirus/COVID-19? No / Unsure 07/13/2021 1:21 PM FREE LANCE MODEL documented as of this encounter Plan of Treatment Upcoming Encounters Date Type Department Care Team (Late st Contact Info) Description 05/15/2024 3:30 PM FREE LANCE MODEL Appointment [facility] [place], [place] [address] Pankaj Rosenberg MD [address] [address] 05/25/2024 12:45 PM FREE LANCE MODEL Office Visit [facility] Physical Therapy [facility] [address] [address] Pankaj Rosenberg MD [address] [address] Maya Magaña, [place] [address] 05/30/2024 3:40 PM FREE LANCE MODEL Office Visit [facility] - [place] [address] [address] [place] [address] Pankaj Rosenberg MD [address] [address] 06/20/2024 3:40 PM FREE LANCE MODEL [facility] - [place] [address] [address] [place] [address] Pankaj Rosenberg MD [address] [address] 06/21/2024 1:00 PM FREE LANCE MODEL Office Visit [facility] Medical Group Orthopedic & Sports Medicine - [place] [address] [place] [address] Jose Ratliff MD [address] [address] [place] [address] 03/27/2025 1:00 PM FREE LANCE MODEL Office Visit [facility] Medical [facility] Multis[facility]ialty Care - [facility] 3 [facility] [place] [address] Bob Oneal MD [address] [place] [address] documented as of this encounter Visit Diagnoses Not on filedocumented in this encounter Additional Health Concerns Assessment Noted Time PHQ-9 Depression Total Score: 1 06/15/19 22 12:13 PM FREE LANCE MODEL documented as of this encounter Care Teams Computer Console Operator Relationship Specialty Start Date End Date Pankaj Rosenberg MD [facility] [address] [place] [address] PCP - General INTERNAL MEDICINE 06/15/21 documented as of this encounter
--- OUTSIDE RECORDS SUMMARY | 2024-05-13 11:27 | XMS_ITS | Encounter Summary ---
Author Organization [facility] Address [address] [place] [address]. [place], [place] [address] [place] [address] Care Team Providers Care Supervisor Sewer System Name Role Phone Pankaj Rosenberg MD Primary Care Provider [phone] Reason for Visit * Reason Onset Date Comments Medication 08/05/2021 Encounter Details Date Type Department Care Team (Late st Contact Info) Description 08/05/2021 Telephone [facility] Medical Group Multispecialty Care - [place] [address] [address] [place] [address] Pankaj Rosenberg MD [address] [place] [address] 157 [place] [address] Medication Social History Tobacco Use [...] file Legal Sex Male 2:58 PM HOME SECURITY ALARM INSTALLER Gender Identity Male 07/13/2021 5:19 AM HOME SECURITY ALARM INSTALLER Sexual Orientation Straight 07/13/2021 5: 19 AM HOME SECURITY ALARM INSTALLER COVID-19 Exposure Response Date Recorded In the [...] Contact Info) Description 05/15/2024 3:30 PM HOME SECURITY ALARM INSTALLER Appointment [facility] [place] [address] Pankaj Rosenberg MD [address] [place] [address] 05/25/2024 12:45 PM HOME SECURITY ALARM INSTALLER Office Visit [facility] Physical Therapy [address] [place] [address] Pankaj Rosenberg MD [address] [place] [address] Maya Magaña, [place] [address] 05/30/2024 3:40 PM HOME SECURITY ALARM INSTALLER [facility] [place] [address] [address] [place] [address] Pankaj Rosenberg MD [address] [place] [address] 06/20/2024 3:40 PM HOME SECURITY ALARM INSTALLER [facility]medicine [facility] - [place] [address] [address] [place] [address] Pankaj Rosenberg MD 118[address] [facility] [address] [place] [address] 06/21/2024 1:00 PM HOME SECURITY ALARM INSTALLER Office Visit [facility] Medical Group Orthopedic & Sports Medicine - [place] [address] [place] [address] Jose Ratliff MD [address] [address] [place] [address] 03/27/2025 1:00 PM HOME SECURITY ALARM INSTALLER Office Visit [facility] Mult[facility]ialty Care - [facility] 3 [facility]., [address] [place] [address] Bob Oneal MD [address] [facility] [address] [place] [address] documented as of this encounter Visit Diagnoses Diagnosis Type 2 diabetes mellitus with hyperglycemia, without long-term current use of insulin ([facility])- Primary documented in this encounter Additional Health Concerns Assessment Noted Time PHQ-9 Depression Total Score: 0 08/01/19 22 2:12 PM CDT documented as of this encounter Care Teams Supervisor Sewer System Relationship Specialty Start Date End Date Pankaj Rosenberg MD [address] [address] PCP - General INTERNAL MEDICINE 06/15/21 documented as of this encounter
--- OUTSIDE RECORDS SUMMARY | 2024-05-13 11:28 | XMS_ITS | Encounter Summary ---
Author Organization [facility] Address [address] [place] [address]. [place], [place] [address] [place] [address] Care Team Providers Care Dobie Man Name Role Phone Pankaj Rosenberg MD Primary Care Provider [phone] Encounter Details Date Type Department Care Team [...] on file Legal Sex Male 2:58 PM INTERSTATE BUS DISPATCHER Gender Identity Male 07/13/2021 5:19 AM INTERSTATE BUS DISPATCHER Sexual Orientation Straight 07/13/2021 5: 19 AM INTERSTATE BUS DISPATCHER COVID-19 Exposure Response Date Recorded In the last 10 days, have yo u been in contact with someone who was confirmed or suspected to have Coronavirus/COVID-19? No / Unsure 07/12/2021 9:21 AM INTERSTATE BUS DISPATCHER documented as of this encounter Plan of Treatment Upcoming Encounters Date Type Department Care Team (Late st Contact Info) Description 05/15/2024 3:30 PM INTERSTATE BUS DISPATCHER [place] [address] Pankaj Rosenberg MD [address] [address] 05/25/2024 12:45 PM INTERSTATE BUS DISPATCHER Office Visit [facility] Physical Therapy [facility] [address] [address] Pankaj Rosenberg MD [address] [address] Maya Magaña, [place] [address] 05/30/2024 3:40 PM INTERSTATE BUS DISPATCHER Office [facility] [place] [address] [address] [place] [address] Pankaj Rosenberg MD [address] [address] 06/20/2024 3:40 PM INTERSTATE BUS DISPATCHER [facility] [place] [address] [address] [place] [address] Pankaj Rosenberg MD [address] [address] 06/21/2024 1:00 PM INTERSTATE BUS DISPATCHER Office Visit [facility] Medical Group [facility] [place] [address] [place] [address] Jose Ratliff MD [address] [address] [place] [address] 03/27/2025 1:00 PM INTERSTATE BUS DISPATCHER Office Visit [facility] Medical [facility] Multispecialty Care - [facility] [address] [facility] [address] [place] [phone] Bob Oneal MD [address] [place] [address] documented as of this encounter Visit Diagnoses Not on filedocumented in this encounter Additional Health Concerns Assessment Noted Time PHQ-9 Depression Total Score: 1 06/15/19 22 12:13 PM INTERSTATE BUS DISPATCHER documented as of this encounter Care Teams Dobie Man Relationship Specialty Start Date End Date Pankaj Rosenberg MD [facility] [address] [place] [address] PCP - General INTERNAL MEDICINE 06/15/21 documented as of this encounter
--- OUTSIDE RECORDS SUMMARY | 2024-05-13 11:28 | XMS_ITS | Encounter Summary ---
Author Organization [facility] Address [address] [place] [address]. [place] [address] [place] [address] Care Team Providers Care Television Program Director Name Role Phone Pankaj Rosenberg MD Primary Care Provider [phone] Reason for Referral * Sleep Lab (Routine) - Closed Specialty Diagnoses / Procedures Referred By Contac t Referred To Contact Diagnoses Chronic fatigue Suspected sleep apnea Procedures Limited Channel Unattended (Home Study) (G0399) Pankaj Rosenberg MD [address] [place] [address] Phone: tel: fax: Referral ID Status Reason Start Date Expiration Date Visits Re quested Visits Authorized [id number] Closed 06/15/2021 07/16/2022 1 1 HER SEASONER Reason for Visit * Reason Comments Establish Care Pt is here to establ dori care. Pt wants a referral to GI. Encounter Details Date Type Department Care Team (Latest Contact Info) Description 06/15/2021 11:20 AM LEATHER SEASONER Office Visit [facility] Group Multispecialty Care - [place] [address] [address] [place] [address] Pankaj Rosenberg MD [address] [place] [address] Establish Care (Pt is here to [...] on file Legal Sex Male 2:58 PM LEATHER SEASONER Gender Identity Male 07/13/2021 5:19 AM LEATHER SEASONER Sexual Orientation Straight 07/13/2021 5: 19 AM LEATHER SEASONER COVID-19 Exposure Response Date Recorded In the last month, have you been in contact with someone who was confirmed or suspected to have Coronavirus / COVID-19? No / Unsure 06/15/2021 11:05 AM LEATHER SEASONER documented as of this encounter Last Filed Vital Signs Vital Sign Reading Time Taken Comments Blood Pressure 135/88 06/15/2021 11:23 AM LEATHER SEASONER Pulse 94 06/15/2021 11:23 AM LEATHER SEASONER Temperature 37.2 ??C (98.9 ??F) 06/15/2021 11:[address] Respiratory Rate 18 06/15/2021 11:23 AM LEATHER SEASONER Oxygen Saturation 96% 06/15/2021 11:23 AM LEATHER SEASONER Inhaled Oxygen Concentration - - Weight 119.7 kg (264 lb) 06/15/2021 11:23 AM LEATHER SEASONER Height 180.3 cm (5' 11 ) 06/15/2021 11:23 AM LEATHER SEASONER Body Mass Index 36.82 06/15/2021 11:23 AM LEATHER SEASONER documented in this encounter Patient Instructions * Patient Instructions* Pankaj Rosenebrg MD - 06/15/2021 11:20 AM LEATHER SEASONER Images from the original note were not [...] process is complete. This topic retrieved from [employer] on: Apr 21, 2021. Topic 50442 Version 11.0 Release: 29.5.2 - C29.340 ?2020??[employer]. and/or its affiliates.??All rights reserved. figure 1: Upper digestive tract The upper digestive tract includes the esophagus??(the tube that connects the mouth to the stomach), the stomach, and the duodenum (the first part of the small intestine). Graphic 48706 Version 6.0 table 1: Medicines used to [...] name: Dexilant) Rabeprazole (brand name: AcipHex) Graphic 60364 Version 14.0 Consumer Information Use and Disclaimer [...] of this information is governed by the [employer] End User License Agreement, available at https://www.[employer]/en/solutions/dineout/about/mili.The use of [employer] content is governed by the [employer] Terms of Use. ??2020 [employer]. All rights reserved. Copyright ?2020??[employer] and/or its affiliates.??All rights reserved. Patient Education [...] Condiments: Pepper, herbs, spices, vinegar, lemon or platinum juices are great for seasoning. Be careful [...] learn more? Academy of Nutrition and Dietetics https://www.eatright.org/health/wellness/wjbqi-gqn-stdvmiqrybkkyz-health/dash-di mp-vaepqlrc-bqoxdlzizlnt-zjhdqze-wqho-ugv-lifestyle FamilyDoctor.org http://familydoctor.org/familydoctor/en/prevention-wellness/food-nutrition/weigh t-loss/qpo-tjhy-xwjm-vfxnhab-lnydol-ab-lqndmne-sctm-ntnuw-pressure.html Last Reviewed Date 2020-07-28 Consumer Information Use [...] or approved for treating a specific patient. [employer] and its affiliates disclaim any warranty or liability relating to this information or the use thereof. The use of this information is governed by the Terms of Use, available at https://www.mTraks.Actimize/en/solutions/lexicomp/about/mili Copyright Copyright ?? 2020 [employer]. and its affiliates and/or licensors. All rights reserved. HER SEASONER HER SEASONER documented in this encounter Progress Notes * Pankaj Rosenberg MD - 06/15/2021 1:17 PM CSTAssociated Problem(s): Fracture of spinous process of cervical vertebra (CMS/HCC HHS/HCC) Stable with no concerns for now. HER SEASONER * Pankaj Rosenberg MD - 06/15/2021 11:20 [...] very concerned and asking to see a skiing teacher. Of note, patient with underlining arthrogryposis. Was born with gastroschisis per patient report. Sinus issues with septoplasty done 2020 at [facility]. Has been using nasal sprays and Zrytec for allergies. Has seen an solvent plant treater in the past and needed shots but [...] smoking/second hand smoking. Patient will set up [facility]. Patient will fax over any remaining outside [...] smoking/second hand smoking. Patient will set up [employer] Inchart. Patient will fax over any remaining outside [...] - May need to see ENT vs solvent plant treater in the future- recommendations made for allergy [...] was at least in part performed using [employer] and there may be some inherent flaws in this special education tutor due to the nature of this program. MD Pankaj QUEVEDO MD Internal Medicine [facility], [facility]. HER SEASONER HER SEASONER HER SEASONER documented in this encounter Plan of Treatment Upcoming Encounters Date Type Department Care Team (Late st Contact Info) Description 05/15/2024 3:30 PM LEATHER SEASONER [facility] [place] [address] Pankaj Rosenberg MD [address] [address] 05/25/2024 12:45 PM LEATHER SEASONER Office Visit [facility] Physical Therapy [address] [place] [address] Pankaj Rosenberg MD [address] [place] [address] Maya Magaña, [place] [address] 05/30/2024 3:40 PM LEATHER SEASONER Office Visit [facility] Medical [facility] Multispecialty Care - [address] [address] Pankaj Rosenberg MD [facility] [address] [address] 06/20/2024 3:40 PM LEATHER SEASONER Telemedicine [facility] Medical [facility] Multispecialty Care - [address] [address] Pankaj Rosenberg MD [address] [place] [address] 06/21/2024 1:00 PM LEATHER SEASONER Office Visit [facility] Group [facility] - [place] [address] [place] [address] Jose Ratliff MD [address] [address] [place] [address] 03/27/2025 1:00 PM LEATHER SEASONER Office Visit [facility] Multispecialty Care - [facility] [address] [place] [phone] Bob Oneal MD [address] [place] [address] documented as of this encounter Procedures Procedure Name Priority Date/Time Associated Diagnosis Comments TSH W/REFLEX Routine 06/15/2021 12:28 PM LEATHER SEASONER Annual physical exam Encounter for medical examination to establish care General medical exam Screening for hypothyroidism Primary hypertension HEMOGLOBIN, GLYCOSYLATED Routine 06/15/2021 12:28 PM LEATHER SEASONER Annual physical exam Encounter for medical examination to establish care General medical exam Screening for diabetes mellitus COMPREHENSIVE METABOLIC PANEL Routine 06/15/2021 12:28 PM LEATHER SEASONER Annual physical exam Encounter for medical examination to establish care General medical exam Primary hypertension Nonalcoholic steatohepatitis LIPID PANEL Routine 06/15/2021 12:28 PM LEATHER SEASONER Annual physical exam Encounter for medical examination to establish care General medical exam Mixed hyperlipidemia Primary hypertension HEPATITIS C ANTIBODY Routine 06/15/2021 12:28 PM LEATHER SEASONER Annual physical exam Encounter for medical examination to establish care General medical exam Encounter for hepatitis C screening test for low risk patient CBC W/DIFF AUTOMATED Routine 06/15/2021 12:28 PM LEATHER SEASONER Annual physical exam Encounter for medical examination to establish care General medical exam Primary hypertension VENIPUNC ARM DRAW Routine 06/15/2021 12: 17 PM LEATHER SEASONER Annual physical exam Encounter for medical examination [...] Study) (G0399) (08/06/2021 2:00 PM CDT) Narrative [facility] - 08/06/2021 2:00 PM CDT Jian Liu MD ? 08/12/2021 10:53 AM [facility] O? [place], [place] HOME SLEEP STUDY INTERPRETATION PATIENT NAME: Chuck Barlow DATE OF : 1995 DATE OF SERVICE: 08/06/2021 Ordering Phy Exam Description Pankaj Rosenberg M.D. Home Sleep Study ATTENDING PHYSICIAN: Dr. Jian Liu REFERRING PHYSICIAN: Dr. Pankaj Rosenberg SUMMARY DATA Sleep Study/ Architecture: This patient was studied using [employer] devices using 1 RIP effort belt and [...] 83 73.0 Assessment/Plan: Severe Obstructive Sleep Apnea. [place] treatment option should be discussed with the [...] exacerbate snoring and sleep-related problems, such as SOCIAL WORK JOB TITLES depressants, especially at bedtime. This document was electronically signed by: Jian Liu M.D. on 08/11/2021 at 11:37 AM. us Pankaj Rosenberg MD SLEEP CENTER ORDERABLES Final Re sult [facility] * HEPATITIS C ANTIBODY (06/15/2021 12:28 PM LEATHER SEASONER) HEPATITIS C AB NON-REACTI VE NON-REACT RACHELLE 06/15/2021 10:[address] [facility] Comment: ANTIBODIES TO HCV NOT DETECTED. DOES NOT EXCLUDE THE POSSIBILITY OF EXPOSURE TO HCV. 06/15/2021 12:2 8 PM LEATHER SEASONER us Pankaj Rosenberg MD LABORATORY Final Result Performing Organization Address City/[facility]/ZIP Co de Phone Number [facility] [address] [place] [address], [id number] * (ABNORMAL) HEMOGLOBIN, GLYCOSYLATED (06/15/2021 12:28 PM LEATHER SEASONER) HGB A1C 6.5(H) 3.80 - 5.60 % 06/16/2021 10:17 AM LEATHER SEASONER [facility] ESTIMATED AVG GLUCOSE 140(H) 74 - 106 MG/DL 06/16/2021 10:17 AM LEATHER SEASONER [facility] 06/15/2021 12:2 8 PM LEATHER SEASONER Pankaj Rosenberg MD LABORATORY Final Result Performing Organization Address [facility] Co de Phone Number [place] [place] [address], * TSH W/REFLEX (06/15/2021 12:28 PM LEATHER SEASONER) TSH 1.051 0.358 - 3.740 uIU/ML 06/15/2021 8:51 PM LEATHER SEASONER [facility] 06/15/2021 12:2 8 PM LEATHER SEASONER us Pankaj Rosenberg MD LABORATORY Final Result Performing Organization Address City/[facility] Co de Phone Number [facility] [address] [place] [address], [place] [phone] * (ABNORMAL) LIPID PANEL (06/15/2021 12:28 PM LEATHER SEASONER) CHOLESTEROL 195 <200 MG/DL 06/15/2021 8:51 PM LEATHER SEASONER [facility] TRIGLYCERIDES 196(H) <150 MG/DL 06/15/2021 8:51 PM [facility] HDL 40(L) >40 MG/DL 06/15/2021 8:51 PM LEATHER SEASONER [facility] LDL-C 116(H) <100 MG/DL 06/15/2021 8:51 PM LEATHER SEASONER [facility] VLDL CALCULATION 39(H) 5 - 28 MG/DL 06/15/2021 8:51 PM [facility] CHOL/HDL RATIO 4.9(H) 0.0 - 4.0 06/15/2021 8:51 PM LEATHER SEASONER [facility] LDL/HDL 2.9(H) 0.41 - 2.13 06/15/2021 8:51 PM [facility] NON HDL CHOLESTEROL 155(H) <140 MG/DL 06/15/2021 8:51 PM [facility] 06/15/2021 12:2 8 PM LEATHER SEASONER Pankaj Rosenberg MD LABORATORY Final Result [facility] [address] [place] [address], * (ABNORMAL) COMPREHENSIVE METABOLIC PANEL (06/15/2021 12:28 PM LEATHER SEASONER) SODIUM S/P/B 135(L) 136 - 145 MMOL/L 06/15/2021 8:51 PM LEATHER SEASONER [facility] POTASSIUM S/P/B 4.6 3.5 - 5.1 MMOL/L 06/15/2021 8:51 PM LEATHER SEASONER [facility] CHLORIDE S/P/B 102 98 - 107 MMOL/L 06/15/2021 8:51 PM [facility] CO2 27.0 21 - 32 MMOL/L 06/15/2021 8:51 PM [facility] GLUCOSE 125(H) 70 - 99 MG/DL 06/15/2021 8:51 PM [facility] BUN 12 6 - 24 MG/DL 06/15/2021 8:51 PM [facility] CREATININE S/P/B 0.84 0.70 - 1.30 MG/DL 06/15/2021 8:51 PM [facility] CALCIUM S/P/B 9.6 8.4 - 10.5 MG/DL 06/15/2021 8:51 PM [facility] BILIRUBIN TOTAL S/P/B 0.7 0.2 - 1.0 MG/DL 06/15/2021 8:51 PM [facility] ALKALINE PHOSPHATASE S/P/B 115 45 - 115 U/L 06/15/2021 8:51 PM [facility] AST 20 15 - 37 U/L 06/15/2021 8:51 PM [facility] ALT 66(H) 16 - 63 U/L 06/15/2021 8:51 PM [facility] TOTAL PROTEIN S/P/B 8.1 6.4 - 8.2 G/DL 06/15/2021 8:51 PM [facility] ALBUMIN S/P/B 4.1 3.4 - 5.0 G/DL 06/15/2021 8:51 PM [facility] ANION GAP 6.0 5 - 15 MMOL/L 06/15/2021 8:51 PM [facility] Comment:REFERENCE RANGE NOT ESTABLISHED OSMOLALITY (CALC) 281 MOSM/KG 06/15/2021 8:51 PM [facility] Comment:REFERENCE RANGE NOT ESTABLISHED EGFR NON-AFR. AMER. >90 >90 ML/MIN/1 .73 M2 06/15/2021 8:51 PM LEATHER SEASONER [facility] EGFR AFR. AMER. >90 >90 ML/MIN/1 .73 M2 06/15/2021 8:51 PM LEATHER SEASONER [facility] GFR NOTES THE ESTIMATED GFR IS CALCULATED USING THE 2009 CKD-EPI EQUATION. THE FOLLOWING CATEGORIES FOR GRADING RENAL FUNCTION ARE RECOMMENDED BY THE INTERNATIONAL SOCIETY OF NEPHROLOGY (KDIGO 2012 CLINICAL PRACTICE GUIDELINE). 06/15/2021 8:51 PM LEATHER SEASONER [facility] [place] Comment: G1,NORMAL OR HIGH: >89 ml/min/1.73 m2 G2,MILDLY DECREASED: 60-89 ml/min/1.73 m2 G3A,MILDLY TO MODERATELY DECREASED: 45-59 ml/min/1.73 m2 G3B,MODERATELY TO SEVERELY DECREASED: 30-44 ml/min/1.73 m2 G4,SEVERELY DECREASED: 15-29 ml/min/1.73 m2 G5,KIDNEY FAILURE: <15 ml/min/1.73 m2 06/15/2021 12:2 8 PM LEATHER SEASONER us Pankaj Rosenberg MD LABORATORY Final Result [facility] [address] [place] [address], * (ABNORMAL) CBC W/DIFF AUTOMATED (06/15/2021 12:28 PM LEATHER SEASONER) WBC 10.3 4.0 - 10.8 x10'3/uL 06/15/2021 7:32 PM LEATHER SEASONER [facility] RBC 5.22 4.50 - 6.10 x10'6/uL 06/15/2021 7:32 PM LEATHER SEASONER [facility] HGB 15.0 13.0 - 18.0 G/DL 06/15/2021 7:32 PM LEATHER SEASONER [facility] HCT 44.8 37.0 - 52.0 % 06/15/2021 7:32 PM LEATHER SEASONER [facility] MCV 85.8 78.0 - 100.0 FL 06/15/2021 7:32 PM [facility] MCH 28.7 27.0 - 31.0 PG 06/15/2021 7:32 PM [facility] MCHC 33.5 33.0 - 36.0 G/DL 06/15/2021 7:32 PM [facility] RDW 12.7 11.5 - 14.5 % 06/15/2021 7:32 PM [facility] PLT 370(H) 150 - 350 x10'3/uL 06/15/2021 7:32 PM [facility] MPV 10.8(H) 7.4 - 10.4 FL 06/15/2021 7:32 PM [facility] DIFFERENTIAL TYPE AUTOMATED DIFFERENTIAL 06/15/2021 7:32 PM [facility] NEUTROPHILS % 65.4 % 06/15/2021 7:32 PM [facility] LYMPHOCYTES % 24.8 % 06/15/2021 7:32 PM [facility] MONOCYTES % 6.9 % 06/15/2021 7:32 PM [facility] EOSINOPHILS % 1.4 % 06/15/2021 7:32 PM [facility] BASOPHILS % 0.5 % 06/15/2021 7:32 PM [facility] IMMATURE GRANS % 1.0 % 06/15/2021 7:32 PM [facility] ABS. NEUTROPHILS 6.76 1.60 - 8.30 x10'3/uL 06/15/2021 7:32 PM [facility] ABS. LYMPHOCYTES 2.56 0.80 - 4.70 x10'3/uL 06/15/2021 7:32 PM [facility] ABS. MONOCYTES 0.71 0.00 - 1.50 x10'3/uL 06/15/2021 7:32 PM LEATHER SEASONER [facility] ABS. EOSINOPHILS 0.14 0.00 - 0.40 x10'3/uL 06/15/2021 7:32 PM LEATHER SEASONER [facility] ABS. BASOPHILS 0.05 0.00 - 0.20 x10'3/uL 06/15/2021 7:32 PM LEATHER SEASONER [facility] ABS. IMMATURE GRANULOCYTES 0.10(H) 0.00 - 0.03 x10'3/uL 06/15/2021 7:32 PM LEATHER SEASONER [facility] 06/15/2021 12:2 8 PM LEATHER SEASONER us Pankaj Rosenberg MD LABORATORY Final Result Performing Organization Address [facility]/ZIP Co de Phone Number [facility] [place] [address] [place] [address], * ALBUMIN URINE RANDOM (06/15/2021) MICROALBUMIN (U) 30 MG- [address], [facility] CREATININE RANDOM (U) 300 [address], [facility] MICROALB/CREAT <30 MG-[address], [facility] URINE SPECIMEN / Unknown 06/15/2021 us Pankaj Rosenberg MD URINE ORDERABLES Final Result Performing Organization Address City/[facility]/ZIP Co de Phone Number MG[address], [facility] [address] [place] [address], [place] [phone] * URINALYSIS AUTO DIP (06/15/2021) COLOR (U) YELLOW [address], [facility] TRANSPARENCY CLEAR [address], [facility] GLUCOSE (U) NEGATIVE NEGATIVE MG/DL [address], [facility] BILIRUBIN (U) NEGATIVE NEGATIVE MG-[address], [facility] KETONES MG/DL (U) NEGATIVE NEGATIVE MG/DL [address], [facility] SPECIFIC GRAVITY (U) >=1.030 1.001 - 1.035 [address], [facility] BLOOD (U) NEGATIVE NEGATIVE [address], [facility] U PH 6.0 5.0 - 9.0 [address], [facility] PROTEIN (U) NEGATIVE NEGATIVE mg/dL [address], [facility] UROBILINOGEN 0.2 0.2 - 1.0 EU/dL = mg/dL [address], [facility] NITRITES NEGATIVE NEGATIVE MG/DL MG[address], [facility] LEUKOCYTES (U) NEGATIVE NEGATIVE MG-[address], [facility] URINE SPECIMEN OBTAINED BY CLEAN CATCH PROCEDURE / Unknown 06/15/2021 Pankaj Rosenberg MD URINE ORDERABLES Final Result Performing Organization Address City/State/[facility] Co de Phone Number [address], [facility] [address] [facility] [address] [place] [address], documented in this encounter Visit Diagnoses Diagnosis [...] Total Score: 1 06/15/19 22 12:13 PM LEATHER SEASONER documented as of this encounter Care Teams Television Program Director Relationship Specialty Start Date End Date Pankaj Rosenberg MD [address] [facility] [address] [place] [address] PCP - General INTERNAL MEDICINE 06/15/21 documented as of this encounter
--- OUTSIDE RECORDS SUMMARY | 2024-05-13 11:28 | XMS_ITS | Encounter Summary ---
Author Organization [facility] Address [address] [place] [address]. [place], [place] [address] [place] [address] Care Team Providers Care Atomic Physics Teacher Name Role Phone Pankaj Rosenberg MD Primary Care Provider [phone] Reason for Visit * Reason Comments Procedure [...] on file Legal Sex Male 2:58 PM JBOSS ARCHITECT Gender Identity Male 07/13/2021 5:19 AM JBOSS ARCHITECT Sexual Orientation Straight 07/13/2021 5: 19 AM JBOSS ARCHITECT COVID-19 Exposure Response Date Recorded In the last month, have you been in contact with someone who was confirmed or suspected to have Coronavirus / COVID-19? No / Unsure 06/15/2021 11:05 AM JBOSS ARCHITECT documented as of this encounter Plan of Treatment Upcoming Encounters Date Type Department Care Team (Late Contact Info) Description 05/15/2024 3:30 [address] [facility] [place] [place] [address] Pankaj Rosenberg MD 1188 [facility] [address] [place] [address] 05/25/2024 12:45 PM JBOSS ARCHITECT Office Visit [facility] Physical Therapy [address] [address] Pankaj Rosenberg MD [address] [address] Maya Magaña, [place] [address] 05/30/2024 3:40 PM JBOSS ARCHITECT [facility] [place] [address] [address] [place] [address] Pankaj Rosenberg MD [address] [address] 06/20/2024 3:40 PM JBOSS ARCHITECT Telemedicine [facility] [place] [address] [address] [place] [address] Pankaj Rosenberg MD [address] [address] 06/21/2024 1:00 PM JBOSS ARCHITECT Office [facility] Medical [facility] Orthopedic & Sports Medicine - [place] [address] [place] [address] Jose Ratliff MD [address] [address] [place] [address] 03/27/2025 1:00 PM JBOSS ARCHITECT [facility] [address] [place] [address] Bob Oneal MD [address] [address] documented as of this encounter Procedures Procedure Name Priority Date/Time Associated Diagnosis Comments PROCEDURE GENERIC (SCAN ORDER) 01/21/2021 documented in this encounter Results * PROCEDURE GENERIC (01/21/2021) 01/21/2021 Narrative 01/21/2021 Ordered by an unspecified provider. us Documents Scanned SCANNING Final Result documented in this encounter Visit Diagnoses Not on filedocumented in this encounter Care Teams Atomic Physics Teacher Relationship Specialty Start Date End Date Pankaj Rosenberg MD 1188 [facility] [place] [address] PCP - General INTERNAL MEDICINE 06/15/21 documented as of this encounter
--- OUTSIDE RECORDS SUMMARY | 2024-05-13 11:28 | XMS_ITS | Encounter Summary ---
Author Organization [facility] Address [address] [place] [address]. [place], [place] [address] [place] [address] Care Team Providers Care Certified Welding Inspector Name Role Phone Pankaj Rosenberg MD Primary Care Provider [phone] Reason for Referral * Consultation (Routine) - Closed Specialty Diagnoses / Procedures Referred By Contac t Referred To Contact OTOLARYNGOLOGY Diagnoses Allergic rhinitis, unspecified seasonality, unspecified trigger Chronic frontal sinusitis Pankaj Rosenberg MD [address] [address] Phone: tel: fax: [facility] [address] [place] [address] Phone: tel: fax: Referral ID Status Reason Start Date Expiration Date Visits Re quested Visits Authorized [id number] Closed 07/13/2021 08/12/2022 100 100 SCHOOL SOCIAL STUDIES TUTOR * Consultation (Routine) - Closed Specialty Diagnoses / Procedures Referred By Contlilian t Referred To Contact GASTROENTEROLOGY Diagnoses Gastroesophageal reflux disease without esophagitis Pankaj Rosenberg MD [address] [address] Phone: tel: fax: [facility] Medical [facility] Multispecialty Care - [address], [address] [place] [address] Phone: tel: fax: Referral ID Status Reason Start Date Expiration Date Visits Re quested Visits Authorized [id number] Closed 07/13/2021 08/14/2022 99 99 SCHOOL SOCIAL STUDIES TUTOR * Consultation/Treatment (Routine) - Closed Specialty Diagnoses / Procedures Referred By Contac t Referred To Contact OPHTHALMOLOGY Diagnoses Type 2 diabetes mellitus with hyperglycemia, without long-term current use of insulin ([facility]) Pankaj Rosenberg MD [address] [address] Phone: tel: fax: [facility] [address] [place] [address] Phone: tel: fax: Referral ID Status Reason Start Date Expiration Date V isits Requested Visits Authorized [id number] Closed Specialty Services 07/13/2021 08/12/2022 100 100 SCHOOL SOCIAL STUDIES TUTOR Reason for Visit * Reason Comments Follow Up Pt is here to follow up on gerd and Diabetes. Encounter Details Date Type Department Care Team (Latest Contact Info) Description 07/13/2021 1:30 PM HIGH SCHOOL SOCIAL STUDIES TUTOR Office Visit [facility] Medical [facility] Multispecialty Care [place] [address] [address] [place] [address] Pankaj Rosenberg MD [address] [place] [address] Follow Up (Pt is here to follow [...] file Legal Sex Male 2:58 PM HIGH SCHOOL SOCIAL STUDIES TUTOR Gender Identity Male 07/13/2021 5:19 AM HIGH SCHOOL SOCIAL STUDIES TUTOR Sexual Orientation Straight 07/13/2021 5: 19 AM HIGH SCHOOL SOCIAL STUDIES TUTOR COVID-19 Exposure Response Date Recorded In the last 10 days, have yo u been in contact with someone who was confirmed or suspected to have Coronavirus/COVID-19? No / Unsure 07/13/2021 1:21 PM HIGH SCHOOL SOCIAL STUDIES TUTOR documented as of this encounter Last Filed Vital Signs Vital Sign Reading Time Taken Comments Blood Pressure 137/88 07/13/2021 1:38 PM HIGH SCHOOL SOCIAL STUDIES TUTOR Pulse 97 07/13/2021 1:38 PM HIGH SCHOOL SOCIAL STUDIES TUTOR Temperature 36.9 ??C (98.5 ??F) 07/13/2021 1:38 PM CS T Respiratory Rate 18 07/13/2021 1:38 PM HIGH SCHOOL SOCIAL STUDIES TUTOR Oxygen Saturation 99% 07/13/2021 1:38 PM HIGH SCHOOL SOCIAL STUDIES TUTOR Inhaled Oxygen Concentration - - Weight 118.4 kg (261 lb) 07/13/2021 1:38 PM HIGH SCHOOL SOCIAL STUDIES TUTOR Height 180.3 cm (5' 11 ) 07/13/2021 1:38 PM HIGH SCHOOL SOCIAL STUDIES TUTOR Body Mass Index 36.4 07/13/2021 1:38 PM HIGH SCHOOL SOCIAL STUDIES TUTOR documented in this encounter Patient Instructions * Patient Instructions* Pankaj Rosenberg MD - 07/13/2021 1:30 PM HIGH SCHOOL SOCIAL STUDIES TUTOR Images from the original note were not included. Follow up in 2 months. Patient Education Patient Education Acid Reflux and Gastroesophageal Reflux Disease in Adults The Basics Written by the doctors and editors at [facility] What is acid reflux???--??Acid reflux is when [...] process is complete. This topic retrieved from [employer] on: Apr 21, 2021. Topic 29498 Version 11.0 Release: 29.5.2 - C29.340 ?2020??[employer] and/or its affiliates.??All rights reserved. figure 1: Upper digestive tract The upper digestive tract includes the esophagus??(the tube that connects the mouth to the stomach), the stomach, and the duodenum (the first part of the small intestine). Graphic 79065 Version 6.0 table 1: Medicines used to [...] name: Dexilant) Rabeprazole (brand name: AcipHex) Graphic 63718 Version 14.0 Consumer Information Use and Disclaimer [...] of this information is governed by the [employer] End User License Agreement, available at [email or web address].The use of [employer] content is governed by the [employer] Terms of Use. ??2020 [employer]. All rights reserved. Copyright ?2020??[employer] and/or its affiliates.??All rights reserved. SCHOOL SOCIAL STUDIES TUTOR SCHOOL SOCIAL STUDIES TUTOR documented in this encounter Progress Notes * [...] insulin ([facility]) E11.65 250.00 TYPE 2 DIABETES MELLITUS Ambulatory Referral to Ophthalmology 790.29 glipiZIDE 5 MG tablet 2. Allergic rhinitis, unspecified seasonality, unspecified trigger J30.9 477.9 ALLERGIC RHINITIS azelastine 0.1 % nasal spray Ambulatory referral to ENT 3. Gastroesophageal reflux disease without esophagitis K21.9 530.81 GASTROESOPHAGEAL REFLUX DISEASEWITHOUT ESOPHAGITIS Ambulatory referral to Gastroenterology ( [place]) 4. Primary hypertension I10 401.9 ESSENTIAL HYPERTENSION lisinopril 20 MG tablet 5. Chronic frontal sinusitis J32.1 473.1 CHRONIC FRONTAL SINUSITIS amoxicillin- clavulanate (AUGMENTIN) 875-125 MG tablet Ambulatory referral to ENT 1. Type 2 diabetes mellitus with hyperglycemia, without long-term current use of insulin ([facility]) - Not tolerating metformin; discontinue - Ambulatory Referral to Ophthalmology - change to glipiZIDE 5 MG tablet; Take 0.5 tablets (2.5 mg total) by mouth every morning before breakfast. Dispense: 60 tablet; Refill: 1 - follow up in 2 [facility] 2. Allergic rhinitis, unspecified seasonality, unspecified trigger [...] gastroenterology - Ambulatory referral to Gastroenterology ( [place]) - continue with omeprazole 40 mg daily [...] headaches. No need to be evaluated by search marketing analyst at this time given ongoing concerns - [...] was at least in part performed using [employer] and there may be some inherent flaws in this storage center manager due to the nature of this program. Pankaj Rosenberg MD Internal Medicine [facility], [facility]. SCHOOL SOCIAL STUDIES TUTOR documented in this encounter Plan of Treatment Upcoming Encounters Date Type Department Care Team (Late st Contact Info) Description 05/15/2024 3:30 PM HIGH SCHOOL SOCIAL STUDIES TUTOR Appointment [facility] [place] [address] Pankaj Rosenberg MD [address] [address] 05/25/2024 12:45 PM HIGH SCHOOL SOCIAL STUDIES TUTOR Office Visit [facility] Physical Therapy [facility] [address] Pankaj Rosenberg MD [address] [address] Maya Magaña, [place] [address] 05/30/2024 3:40 PM HIGH SCHOOL SOCIAL STUDIES TUTOR Office Visit [facility] Medical [facility] Multispecialty [facility] [place] [address] [address] [place] [address] Pankaj Rosenberg MD [facility] [address] [address] 06/20/2024 3:40 PM HIGH SCHOOL SOCIAL STUDIES TUTOR Telemedicine [facility] Medical [facility] Multispecialty [facility] [place] [address] [address] [place] [address] Pankaj Rosenberg MD [address] [address] 06/21/2024 1:00 PM HIGH SCHOOL SOCIAL STUDIES TUTOR Office Visit [facility] Medical Group Orthopedic & [facility] Medicine - [place] [address] [place] [address] Jose Ratliff MD [address] [address] [place] [address] 03/27/2025 1:00 PM HIGH SCHOOL SOCIAL STUDIES TUTOR Office Visit [facility] Medical [facility] Multispecialty Care - [facility] 3 [facility] [address] [place] [address] Bob Oneal MD 3 [facility] [place] [address] [place] [address] Scheduled Referrals Name Type Priority Associated Diagnoses Orde r Schedule Ambulatory Referral to Ophthalmology Referral Routine Type 2 diabetes mellitus with hyperglycemia, without long-term current use of insulin ([facility]) Ordered: 07/13/2021 Ambulatory referral to Gastroenterology ([facility]) Referral Routine Gastroesophageal reflux disease without esophagitis Ordered: 07/13/2021 Ambulatory referral to ENT Referral Routine Allergic rhinitis, unspecified seasonality, unspecified trigger Chronic frontal sinusitis Ordered: 07/13/2021 documented as of this encounter Visit Diagnoses Diagnosis Type 2 diabetes mellitus with hyperglycemia, without long-term current use of insulin ([facility])- Primary Allergic rhinitis, unspecified seasonality, unspecified trigger Gastroesophageal reflux disease without esophagitis Esophageal reflux Primary hypertension Unspecified essential hypertension Chronic frontal sinusitis documented in this encounter Additional Health Concerns Assessment Noted Time PHQ-9 Depression Total Score: 1 06/15/19 22 12:13 PM HIGH SCHOOL SOCIAL STUDIES TUTOR documented as of this encounter Care Teams Certified Welding Inspector Relationship Specialty Start Date End Date Pankaj Rosenberg MD [address] [address] PCP - General INTERNAL MEDICINE 06/15/21 documented as of this encounter
--- OUTSIDE RECORDS SUMMARY | 2024-05-13 11:28 | XMS_ITS | Encounter Summary ---
Author Organization [facility] Address [address] [place] [address]. [place], [place] [address] [place] [address] Care Team Providers Care Upholsterer Inside Name Role Phone Pankaj Rosenberg MD Primary Care Provider [phone] Encounter Details Date Type Department Care Team [...] on file Legal Sex Male 2:58 PM PICCOLO MECHANIC Gender Identity Male 07/13/2021 5:19 AM PICCOLO MECHANIC Sexual Orientation Straight 07/13/2021 5: 19 AM PICCOLO MECHANIC COVID-19 Exposure Response Date Recorded In the last month, have you been in contact with someone who was confirmed or suspected to have Coronavirus / COVID-19? No / Unsure 06/15/2021 11:05 AM PICCOLO MECHANIC documented as of this encounter Plan of Treatment Upcoming Encounters Date Type Department Care Team (Late st Contact Info) Description 05/15/2024 3:30 PM PICCOLO MECHANIC Appointment [place] [address] Pankaj Rosenberg MD [address] [address] 05/25/2024 12:45 PM PICCOLO MECHANIC Office [facility] Physical Therapy [facility] [address] Pankaj Rosenberg MD 1188 [facility] [address] [place] [address] Maya Magaña, [place] [address] 05/30/2024 3:40 PM PICCOLO MECHANIC [facility] [place] [address] [place] [address] [address] [place] [address] Pankaj Rosenberg MD [address] [address] 06/20/2024 3:40 PM PICCOLO MECHANIC [facility]icine [facility] [place] [address] [address] [place] [address] Pankaj Rosenberg MD [address] [address] 06/21/2024 1:00 PM PICCOLO MECHANIC Office Visit [facility] Medical Group Orthopedic & Sports Medicine - [place] [address] [place] [address] Jose Ratliff MD [address] [place] [address] 03/27/2025 1:00 PM PICCOLO MECHANIC Office Visit [facility] - [facility] 3 [facility]., [address] [place] [address] Bob Oneal MD [address] [place] [address] documented as of this encounter Visit Diagnoses Not on filedocumented in this encounter Additional Health Concerns Assessment Noted Time PHQ-9 Depression Total Score: 1 06/15/19 22 12:13 PM PICCOLO MECHANIC documented as of this encounter Care Teams Upholsterer Inside Relationship Specialty Start Date End Date Pankaj Rosenberg MD [facility] [address] PCP - General INTERNAL MEDICINE 06/15/21 documented as of this encounter
--- OUTSIDE RECORDS SUMMARY | 2024-05-13 11:28 | XMS_ITS | Encounter Summary ---
Author Organization [facility] Address [address] [place] [address]. [place], [place] [address] [place] [address] Care Team Providers Care Window Shade Estimator Name Role Phone Pankaj Rosenberg MD Primary Care Provider [phone] Reason for Visit * Reason Comments Ultrasound [...] on file Legal Sex Male 2:58 PM YOUTH DIRECTOR Gender Identity Male 07/13/2021 5:19 AM YOUTH DIRECTOR Sexual Orientation Straight 07/13/2021 5: 19 AM YOUTH DIRECTOR COVID-19 Exposure Response Date Recorded In the last month, have you been in contact with someone who was confirmed or suspected to have Coronavirus / COVID-19? No / Unsure 06/15/2021 11:05 AM YOUTH DIRECTOR documented as of this encounter Plan of Treatment Upcoming Encounters Date Type Department Care Team (Late Contact Info) Description 05/15/2024 3:[address] [place] [address] Pankaj Rosenberg MD 1188 [facility] [address] [place] [phone] 05/25/2024 12:45 PM YOUTH DIRECTOR [facility] [address] [address] Pankaj Rosenberg MD [address] [address] Maya Magaña, [place] [address] 05/30/2024 3:40 PM YOUTH DIRECTOR [facility] [place] [address] [address] [place] [address] Pankaj Rosenberg MD [address] [address] 06/20/2024 3:40 PM YOUTH DIRECTOR [facility] [place] [address] [address] [place] [address] Pankaj Rosenberg MD [address] [address] 06/21/2024 1:00 PM YOUTH DIRECTOR Office [facility] Medical [facility] Orthopedic & Sports Medicine - [place] [address] [place] [address] Jose Ratliff MD [address] [address] [place] [address] 03/27/2025 1:00 PM YOUTH DIRECTOR [facility] - [address] [place] [address] Bob Oneal MD 3 [facility] [address] [address] documented as of this encounter Procedures Procedure Name Priority Date/Time Associated Diagnosis Comments ULTRASOUND GENERIC (SCAN ORDER) 12/17/2020 documented in this encounter Results * ULTRASOUND GENERIC (12/17/2020) Anatomical Region Laterality Modality Other 12/17/2020 Narrative 12/17/2020 Ordered by an unspecified provider. us Documents Scanned SCANNING Final Result documented in this encounter Visit Diagnoses Not on filedocumented in this encounter Care Teams Window Shade Estimator Relationship Specialty Start Date End Date Pankaj Rosenberg MD [address] [address] PCP - General INTERNAL MEDICINE 06/15/21 documented as of this encounter
--- OUTSIDE RECORDS SUMMARY | 2024-05-13 11:28 | XMS_ITS | Encounter Summary ---
Author Organization [facility] Address [address] [place] [address]. [place], [place] [address] [place] [address] Care Team Providers Care Epitaxial Reactor Operator Name Role Phone Pankaj Rosenberg MD Primary Care Provider [phone] Reason for Visit * Reason Onset Date Comments Medication 06/16/2021 Encounter Details Date Type Department Care Team (Late st Contact Info) Description 06/16/2021 Telephone [facility] Medical Group Multispecialty Care - [place] [address] [address] [place] [address] Pankaj Rosenberg MD [address] [place] [address] 157 [place] [address] Medication Social History Tobacco Use [...] on file Legal Sex Male 2:58 PM JAVA J2EE SOFTWARE ENGINEER Gender Identity Male 07/13/2021 5:19 AM JAVA J2EE SOFTWARE ENGINEER Sexual Orientation Straight 07/13/2021 5: 19 AM JAVA J2EE SOFTWARE ENGINEER COVID-19 Exposure Response Date Recorded In the last month, have you been in contact with someone who was confirmed or suspected to have Coronavirus / COVID-19? No / Unsure 06/15/2021 11:05 AM JAVA J2EE SOFTWARE ENGINEER documented as of this encounter Plan of Treatment Upcoming Encounters Date Type Department Care Team (Late st Contact Info) Description 05/15/2024 3:30 PM JAVA J2EE SOFTWARE ENGINEER Appointment [facility] [place] [address] Pankaj Rosenberg MD [address] [phone] 05/25/2024 12:45 PM JAVA J2EE SOFTWARE ENGINEER Office Visit [facility] Physical Therapy [address] [place] [phone] Pankaj Rosenberg MD [address] [place] [address] Maya Magaña, [place] [address] 05/30/2024 3:40 PM JAVA J2EE SOFTWARE ENGINEER Office Visit [facility] Medical [facility] Multispecialty Care - [address] [address] Pankaj Rosenberg MD [address] [address] 06/20/2024 3:40 PM JAVA J2EE SOFTWARE ENGINEER Telemedicine [facility] Medical [facility] Multispecialty Care - [place] [address] [address] [place] [address] Pankaj Rosenberg MD [address] [address] 06/21/2024 1:00 PM JAVA J2EE SOFTWARE ENGINEER Office Visit [facility] Medical Group Orthopedic & Sports Medicine - [place] [address] [place] [address] Jose Ratliff MD [address] [address] [place] [address] 03/27/2025 1:00 PM JAVA J2EE SOFTWARE ENGINEER Office Visit [facility] Medical Group Multispecialty Care - [facility] 3 [facility] [address] [place] [address] Bob Oneal MD 3 [facility] [address] [place] [address] documented as of this encounter Visit Diagnoses Diagnosis Type 2 diabetes mellitus with hyperglycemia, without long-term current use of insulin ([facility])- Primary documented in this encounter Additional Health Concerns Assessment Noted Time PHQ-9 Depression Total Score: 1 06/15/19 22 12:13 PM JAVA J2EE SOFTWARE ENGINEER documented as of this encounter Care Teams Epitaxial Reactor Operator Relationship Specialty Start Date End Date Pankaj Rosenberg MD [address] [address] PCP - General INTERNAL MEDICINE 06/15/21 documented as of this encounter
--- OUTSIDE RECORDS SUMMARY | 2024-05-13 11:28 | XMS_ITS | Encounter Summary ---
Author Organization [facility] Address [address] [place] [address]. [place], [place] [address] [place] [address] Care Team Providers Care Assistant Speech Language Pathologist Name Role Phone Pankaj Rosenberg MD Primary Care Provider [phone] Encounter Details Date Type Department Care Team (Latest Contact Info) Description 06/15/2021 - 06/15/2021 11:59 PM FLAT LOCK OPERATOR Hospital Encounter [place] [address] [place] [address] Pankaj Rosenberg MD [address] [address] Discharge Disposition: Home or Self [...] on file Legal Sex Male 2:58 PM FLAT LOCK OPERATOR Gender Identity Male 07/13/2021 5:19 AM FLAT LOCK OPERATOR Sexual Orientation Straight 07/13/2021 5: 19 AM FLAT LOCK OPERATOR COVID-19 Exposure Response Date Recorded In the last month, have you been in contact with someone who was confirmed or suspected to have Coronavirus / COVID-19? No / Unsure 06/15/2021 11:05 AM FLAT LOCK OPERATOR documented as of this encounter Medications [...] st Contact Info) Description 05/15/2024 3:30 PM FLAT LOCK OPERATOR [facility]ment [facility] [place] [address] Pankaj Rosenberg MD [address] [address] 05/25/2024 12:45 PM FLAT LOCK OPERATOR Office Visit [facility] Physical Therapy [facility] [address] Pankaj Rosenberg MD [address] [address] Maya Magaña, [place] [address] 05/30/2024 3:40 PM FLAT LOCK OPERATOR Office Visit [facility] [place] [address] [address] [place] [address] Pankaj Rosenberg MD [address] [address] 06/20/2024 3:40 PM FLAT LOCK OPERATOR [facility] [place] [address] [address] [place] [address] Pankaj Rosenberg MD [address] [address] 06/21/2024 1:00 PM FLAT LOCK OPERATOR Office Visit [facility] Medical Group [facility] - [place] [address] [place] [address] Jose Ratliff MD [address] [address] [place] [address] 03/27/2025 1:00 PM FLAT LOCK OPERATOR Office Visit [facility] Medical [facility] Multispecialty Care - [facility] 3 [facility] [address] [place] [address] Bob Oneal MD [address] [place] [address] documented as of this encounter Visit Diagnoses Not on filedocumented in this encounter Additional Health Concerns Assessment Noted Time PHQ-9 Depression Total Score: 1 06/15/19 22 12:13 PM FLAT LOCK OPERATOR documented as of this encounter Care Teams Assistant Speech Language Pathologist Relationship Specialty Start Date End Date Pankaj Rosenberg MD [facility] [address] PCP - General INTERNAL MEDICINE 06/15/21 documented as of this encounter
--- OUTSIDE RECORDS SUMMARY | 2024-05-13 11:28 | XMS_ITS | Encounter Summary ---
Author Organization [facility] Address [address] [place] [address]. [place], [place] [address] [place] [address] Care Team Providers Care Paper Cone Drying Machine Operator Name Role Phone Pankaj Rosenberg MD Primary Care Provider [phone] Encounter Details Date Type Department Care Team [...] file Legal Sex Male 2:58 PM PIT SUPERVISOR Gender Identity Male 07/13/2021 5:19 AM PIT SUPERVISOR Sexual Orientation Straight 07/13/2021 5: 19 AM PIT SUPERVISOR COVID-19 Exposure Response Date Recorded In the last month, have you been in contact with someone who was confirmed or suspected to have Coronavirus / COVID-19? No / Unsure 06/15/2021 11:05 AM PIT SUPERVISOR documented as of this encounter Plan of Treatment Upcoming Encounters Date Type Department Care Team (Late st Contact Info) Description 05/15/2024 3:30 PM [address] [facility] [facility] [place] [address] Pankaj Rosenberg MD [address] [address] 05/25/2024 12:45 PM PIT SUPERVISOR Office Visit [facility] Physical Therapy [address] [address] Pankaj Rosenberg MD [address] [address] Maya Magaña, PT One [facility] [place] [address] 05/30/2024 3:40 PM PIT SUPERVISOR [facility] [place] [address] [address] [place] [address] Pankaj Rosenberg MD Critical access hospital[address] [address] 06/20/2024 3:40 PM PIT SUPERVISOR [facility]icine [facility] [place] [address] [address] [place] [address] Pankaj Rosenberg MD [address] [address] 06/21/2024 1:00 PM PIT SUPERVISOR Office Visit [facility] Orthopedic & Sports Medicine - [place] [address] [place] [address] Jose Ratliff MD [address] [place] [address] 03/27/2025 1:00 PM PIT SUPERVISOR Office Visit [facility] Multispecialty Care - [facility] 3 [facility] [address] [place] [address] Bob Oneal MD 3 [facility] [address] [place] [address] documented as of this encounter Visit Diagnoses Not on filedocumented in this encounter Care Teams Paper Cone Drying Machine Operator Relationship Specialty Start Date End Date Pankaj Rosenberg MD [address] [address] PCP - General INTERNAL MEDICINE 06/15/21 documented as of this encounter
--- OUTSIDE RECORDS SUMMARY | 2024-05-13 11:28 | XMS_ITS | Encounter Summary ---
Author Organization [facility] Address [address] [place] [address]. [place], [place] [address] [place] [address] Care Team Providers Care Rn Transfer Name Role Phone Pankaj Rosenberg MD Primary Care Provider [phone] Reason for Visit * Reason Onset Date Comments Question 06/22/2021 Medication [facility] ion Encounter Details Date Type Department Care Team (Late st Contact Info) Description 06/22/2021 Telephone [facility] Medical Group Multispecialty Care - [place] [address] [address] [place] [address] Pankaj Rosenberg MD [address] [place] [address] [address] [place] [address] Question (Medication Question) Social History [...] on file Legal Sex Male 2:58 PM DITCH TENDER Gender Identity Male 07/13/2021 5:19 AM DITCH TENDER Sexual Orientation Straight 07/13/2021 5: 19 AM DITCH TENDER COVID-19 Exposure Response Date Recorded In the last month, have you been in contact with someone who was confirmed or suspected to have Coronavirus / COVID-19? No / Unsure 06/15/2021 11:05 AM DITCH TENDER documented as of this encounter Progress Notes * Pankaj Rosenberg MD - 06/22/2021 3:28 PM CST I called and spoke to patient. Okay to hold off initiating Metformin at this time due to upper respiratory symptoms. Once he recovers, he will resume taking Metformin. All questions answered. H TENDER * Pankaj Rosenberg MD - 06/22/2021 3:28 PM CST ----- Message from Kimmy Hull MA sent at 06/22/2021 1:59 PM DITCH TENDER ----- ----- Message ----- From: Roberto Moffett Sent: 06/22/2021 11:29 AM DITCH TENDER To: Pankaj Riggins Nurse H TENDER * Kimmy Hull MA - 06/22/2021 1:59 PM CST Please advise. H TENDER * Roberto Moffett - 06/22/2021 11:26 AM CST Patient called and said that he currently has a cold and wanted to know if he should wait to take metformin until after he is better due the side effects that is can cause. Please call patient. H TENDER documented in this encounter Plan of Treatment Upcoming Encounters Date Type Department Care Team (Late st Contact Info) Description 05/15/2024 3:30 PM DITCH TENDER Appointment [facility] [place] [address] Pankaj Rosenberg MD [address] [facility] [address] [place] [address] 05/25/2024 12:45 PM DITCH TENDER Office Visit [facility] Physical Therapy [facility]8 [address] [address] Pankaj Rosenberg MD [address] [place] [address] [address] Maya Magaña, [place] [address] 05/30/2024 3:40 PM DITCH TENDER [facility] [place] [address] [address] [place] [address] Pankaj Rosenberg MD [address] [address] 06/20/2024 3:40 PM DITCH TENDER [facility]medicine [facility] [place] [address] [address] [place] [address] Pankaj Rosenberg MD [address] [address] 06/21/2024 1:00 PM DITCH TENDER Office Visit [facility] Medical [facility] Orthopedic & Sports Medicine - [place] [address] [place] [address] Jose Ratliff MD [address] [address] [place] [address] 03/27/2025 1:00 PM DITCH TENDER [facility] 3 [facility] [address] [place] [address] Bob Oneal MD 3 [facility] [address] [place] [address] documented as of this encounter Visit Diagnoses Not on filedocumented in this encounter Additional Health Concerns Assessment Noted Time PHQ-9 Depression Total Score: 1 06/15/19 22 12:13 PM DITCH TENDER documented as of this encounter Care Teams Rn Transfer Relationship Specialty Start Date End Date Pankaj Rosenberg MD [facility] [address] [place] [address] PCP - General INTERNAL MEDICINE 06/15/21 documented as of this encounter
--- OUTSIDE RECORDS SUMMARY | 2024-05-13 11:28 | XMS_ITS | Encounter Summary ---
Author Organization [facility] Address [address] [place] [address]. [place], [place] [address] [place] [address] Care Team Providers Care Transit Driver Name Role Phone Pankaj Rosenberg MD Primary Care Provider [phone] Encounter Details Date Type Department Care Team [...] file Legal Sex Male 2:58 PM NURSE PRACTITIONER HOSPITALIST Gender Identity Male 07/13/2021 5:19 AM NURSE PRACTITIONER HOSPITALIST Sexual Orientation Straight 07/13/2021 5: 19 AM NURSE PRACTITIONER HOSPITALIST COVID-19 Exposure Response Date Recorded In the last month, have you been in contact with someone who was confirmed or suspected to have Coronavirus / COVID-19? No / Unsure 06/15/2021 11:05 AM NURSE PRACTITIONER HOSPITALIST documented as of this encounter Plan of Treatment Upcoming Encounters Date Type Department Care Team (Late st Contact Info) Description 05/15/2024 3:30 PM NURSE PRACTITIONER HOSPITALIST [facility]ment [facility] [place] [address] Pankaj Rosenberg MD [address] [address] 05/25/2024 12:45 PM NURSE PRACTITIONER HOSPITALIST Office Visit [facility] Physical Therapy [facility] [address] Pankaj Rosenberg MD [address] [address] Maya Magaña, PT One [facility] [place] [address] 05/30/2024 3:40 PM NURSE PRACTITIONER HOSPITALIST [facility] [place] [address] [address] [place] [address] Pankaj Rosenberg MD [facility] [address] [address] 06/20/2024 3:40 PM NURSE PRACTITIONER HOSPITALIST Telemedicine [facility] [place] [address] [address] [place] [address] Pankaj Rosenberg MD [address] [address] 06/21/2024 1:00 PM NURSE PRACTITIONER HOSPITALIST Office Visit [facility] Orthopedic & Sports Medicine - [place] [address] [place] [address] Jose Ratliff MD [address] [place] [address] 03/27/2025 1:00 PM NURSE PRACTITIONER HOSPITALIST Office Visit [facility] Multispecialty Care - [facility] 3 [facility]., [address] [place] [address] Bob Oneal MD 3 [facility] [address] [place] [address] documented as of this encounter Visit Diagnoses Not on filedocumented in this encounter Care Teams Transit Driver Relationship Specialty Start Date End Date Pankaj Rosenberg MD [address] [address] PCP - General INTERNAL MEDICINE 06/15/21 documented as of this encounter
--- OUTSIDE RECORDS SUMMARY | 2024-05-13 11:28 | XMS_ITS | Encounter Summary ---
Author Organization [facility] Address [address] [place] [address]. [place], [place] [address] [place] [address] Care Team Providers Care Web Press Jogger Name Role Phone Pankaj Rosenberg MD Primary Care Provider [phone] Encounter Details Date Type Department Care Team [...] on file Legal Sex Male 2:58 PM SHELL PRESS OPERATOR Gender Identity Male 07/13/2021 5:19 AM SHELL PRESS OPERATOR Sexual Orientation Straight 07/13/2021 5: 19 AM SHELL PRESS OPERATOR COVID-19 Exposure Response Date Recorded In the last month, have you been in contact with someone who was confirmed or suspected to have Coronavirus / COVID-19? No / Unsure 06/15/2021 11:05 AM SHELL PRESS OPERATOR documented as of this encounter Plan of Treatment Upcoming Encounters Date Type Department Care Team (Late st Contact Info) Description 05/15/2024 3:30 PM SHELL PRESS OPERATOR [facility]ointment [facility] [place] [address] Pankaj Rosenberg MD [address] [address] 05/25/2024 12:45 PM SHELL PRESS OPERATOR Office Visit [facility] Physical Therapy [address] [address] Pankaj Rosenberg MD [address] [address] Maya Magaña, PT One [facility] [place] [address] 05/30/2024 3:40 PM SHELL PRESS OPERATOR [facility] [place] [address] [address] [place] [address] Pankaj Rosenberg MD [facility] [address] [address] 06/20/2024 3:40 PM SHELL PRESS OPERATOR [facility]medicine [facility] [place] [address] [address] [place] [address] Pankaj Rosenberg MD [address] [address] 06/21/2024 1:00 PM SHELL PRESS OPERATOR Office Visit [facility] Orthopedic & Sports Medicine - [place] [address] [place] [address] Jose Ratliff MD [address] [place] [address] 03/27/2025 1:00 PM SHELL PRESS OPERATOR Office Visit [facility] Multispecialty Care - [facility] 3 [facility] [address] [place] [address] Bob Oneal MD 3 [facility] [address] [place] [address] documented as of this encounter Visit Diagnoses Not on filedocumented in this encounter Care Teams Web Press Jogger Relationship Specialty Start Date End Date Pankaj Rosenberg MD [address] [address] PCP - General INTERNAL MEDICINE 06/15/21 documented as of this encounter
--- OUTSIDE RECORDS SUMMARY | 2024-05-13 11:28 | XMS_ITS | Encounter Summary ---
Author Organization [facility] Address [address] [place] [address]. [place], [place] [address] [place] [address] Care Team Providers Care Strategic Client Executive Name Role Phone Pankaj Rosenberg MD Primary Care Provider [phone] Encounter Details Date Type Department Care Team [...] on file Legal Sex Male 2:58 PM EMBEDDED ENGINEER Gender Identity Male 07/13/2021 5:19 AM EMBEDDED ENGINEER Sexual Orientation Straight 07/13/2021 5: 19 AM EMBEDDED ENGINEER COVID-19 Exposure Response Date Recorded In the last month, have you been in contact with someone who was confirmed or suspected to have Coronavirus / COVID-19? No / Unsure 06/15/2021 11:05 AM EMBEDDED ENGINEER documented as of this encounter Plan of Treatment Upcoming Encounters Date Type Department Care Team (Late st Contact Info) Description 05/15/2024 3:30 PM EMBEDDED ENGINEER [facility]ment [place] [address] Pankaj Rosenberg MD [address] [address] 05/25/2024 12:45 PM EMBEDDED ENGINEER Office [facility] Physical Therapy [facility] [address] Pankaj Rosenberg MD [address] [address] Maya Magaña, PT One [facility] [place] [address] 05/30/2024 3:40 PM EMBEDDED ENGINEER [facility] [place] [address] [address] [place] [address] Pankaj Rosenberg MD [facility] [address] 06/20/2024 3:40 PM EMBEDDED ENGINEER [facility]icine [facility] [place] [address] [address] [place] [address] Pankaj Rosenberg MD [address] [address] 06/21/2024 1:00 PM EMBEDDED ENGINEER Office Visit [facility] Orthopedic & Sports Medicine - [place] [address] [place] [address] Jose Ratliff MD [address] [place] [address] 03/27/2025 1:00 PM EMBEDDED ENGINEER Office Visit [facility] Multispecialty Care - [facility] 3 [facility]., [address] [place] [address] oBb Oneal MD 3 [facility] [address] [place] [address] documented as of this encounter Visit Diagnoses Not on filedocumented in this encounter Care Teams Strategic Client Executive Relationship Specialty Start Date End Date Pankaj Rosenberg MD [address] [address] PCP - General INTERNAL MEDICINE 06/15/21 documented as of this encounter
--- OUTSIDE RECORDS SUMMARY | 2024-05-13 11:28 | XMS_ITS | Encounter Summary ---
Author Organization [facility] Address [address] [place] [address]. [place], [place] [address] [place] [address] Care Team Providers Care Paving Supervisor Name Role Phone Pankaj Rosenberg MD Primary Care Provider [phone] Encounter Details Date Type Department Care Team [...] on file Legal Sex Male 2:58 PM LOANS CONSULTANT Gender Identity Male 07/13/2021 5:19 AM LOANS CONSULTANT Sexual Orientation Straight 07/13/2021 5: 19 AM LOANS CONSULTANT COVID-19 Exposure Response Date Recorded In the last month, have you been in contact with someone who was confirmed or suspected to have Coronavirus / COVID-19? No / Unsure 06/15/2021 11:05 AM LOANS CONSULTANT documented as of this encounter Plan of Treatment Upcoming Encounters Date Type Department Care Team (Late st Contact Info) Description 05/15/2024 3:30 PM LOANS CON[address]ULTANT [facility] [facility] [place] [address] Pankaj Rosenberg MD [address] [address] 05/25/2024 12:45 PM LOANS CONSULTANT Office Visit [facility] Physical Therapy [facility] [address] Pankaj Rosenberg MD [address] [address] Maya Magaña, PT One [facility] [place] [address] 05/30/2024 3:40 PM LOANS CONSULTANT [facility] [place] [address] [address] [place] [address] Pankaj Rosenberg MD [facility]8 [address] [address] 06/20/2024 3:40 PM LOANS CONSULTANT Telemedicine [facility] - [place] [address] [address] [place] [address] Pankaj Rosenberg MD [address] [address] 06/21/2024 1:00 PM LOANS CONSULTANT Office Visit [facility] Orthopedic & Sports Medicine - [place] [address] [place] [address] Jose Ratliff MD [address] [place] [address] 03/27/2025 1:00 PM LOANS CONSULTANT Office Visit [facility] Multispecialty Care - [facility] 3 [facility]., [address] [place] [address] Bob Oneal MD 3 [facility] [address] [place] [address] documented as of this encounter Visit Diagnoses Not on filedocumented in this encounter Care Teams Paving Supervisor Relationship Specialty Start Date End Date Pankaj Rosenberg MD [address] [address] PCP - General INTERNAL MEDICINE 06/15/21 documented as of this encounter
--- OUTSIDE RECORDS SUMMARY | 2024-05-13 11:28 | XMS_ITS | Encounter Summary ---
Author Organization [facility] Address [address] [place] [address]. [place], [place] [address] [place] [address] Care Team Providers Care Venetian Blind Worker Name Role Phone Pankaj Rosenberg MD Primary Care Provider [phone] Encounter Details Date Type Department Care [...] on file Legal Sex Male 2:58 PM PRESS TENDER STAR SIGNAL Gender Identity Male 07/13/2021 5:19 AM PRESS TENDER STAR SIGNAL Sexual Orientation Straight 07/13/2021 5: 19 AM PRESS TENDER STAR SIGNAL COVID-19 Exposure Response Date Recorded In the last month, have you been in contact with someone who was confirmed or suspected to have Coronavirus / COVID-19? No / Unsure 06/15/2021 11:05 AM PRESS TENDER STAR SIGNAL documented as of this encounter Plan of Treatment Upcoming Encounters Date Type Department Care Team (Late st Contact Info) Description 05/15/2024 3:30 PM PRESS TENDER STAR SIGNAL [facility]ment [facility] [address] Pnakaj Rosenberg MD [address] [address] 05/25/2024 12:45 PM PRESS TENDER STAR SIGNAL Office Visit [facility] Physical Therapy [facility] [address] Pankaj Rosenberg MD [address] [address] Maya Magaña, PT One [facility] [place] [address] 05/30/2024 3:40 PM PRESS TENDER STAR SIGNAL [facility] [place] [address] [address] [place] [address] Pankaj Rosenberg MD [facility] [address] [address] 06/20/2024 3:40 PM PRESS TENDER STAR SIGNAL [facility]icine [facility] [place] [address] [address] [place] [address] Pankaj Rosenberg MD [address] [address] 06/21/2024 1:00 PM PRESS TENDER STAR SIGNAL Office Visit [facility] Orthopedic & Sports Medicine - [place] [address] [place] [address] Jose Ratliff MD [address] [place] [address] 03/27/2025 1:00 PM PRESS TENDER STAR SIGNAL Office Visit [facility] Multispecialty Care - [facility] 3 [facility] [address] [place] [address] Bob Oneal MD 3 [facility] [address] [place] [address] documented as of this encounter Visit Diagnoses Not on filedocumented in this encounter Care Teams Venetian Blind Worker Relationship Specialty Start Date End Date Pankaj Rosenberg MD [address] [address] PCP - General INTERNAL MEDICINE 06/15/21 documented as of this encounter
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
--- OUTSIDE RECORDS SUMMARY | 2024-05-13 11:36 | XMS_ITS | Continuity of Care Document ---
Author Organization [facility] Address [address] [place] [address] Phone Care Team Providers Care Valve And Regulator Repairer Name Role Phone Jack Medina MD Unavailable [...] Copied on Encounter OFFICE/OUTPA TIENT VISIT EST [facility], [address] [place] [address], [facility], [phone] [facility] Progress Kimberly f/u Cervical Spine (chief complaint) Postlaminectomy syndrome, cervical region -201 5 Carol Santiago. [address] [place] [address], [id number] . tel: [phone] [facility], [address] [place] [address], [id number], tel:[phone] [facility] cervical spine (chief complaint) Closed fracture of cervical vertebra 3-201 4 Curylo Jack. [address] [place] [address], [id number] . tel: [phone] [facility], [address], [place], [address], [place] [phone] [facility] Closed fracture of cervical vertebra 4 Carol Santiago. [address], [place], [place], [id number] . tel: [phone] Family History Family Member Type Diagnosis Age At Onset No Information Payers Payer name Insurance type Covered republican ID Authoriza tion(s) No Information Social History [...]
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
--- OUTSIDE RECORDS SUMMARY | 2024-05-13 11:37 | XMS_ITS | Encounter Summary ---
Author Organization [facility] Address [address] [place] [address] Phone Care Team Providers Care Marketing Automation Analyst Name Role Phone Charles Vogel MD Primary Care Provider [phone] Reason for Visit * Neurology (Routine) - Closed Specialty Diagnoses / Procedures Referred By Contac t Referred To Contact Diagnoses Numbness and tingling in both hands Procedures EMG/NCV -Please select the performing region: [facility] (All Locations); Procedure performed at: [facility] Ortho Physiatry Jesusita Jerez MD Phone: tel: fax: [facility] (All Locations) Referral ID Status Reason Start Date Expiration Date Visits Re quested Visits Authorized [id number] Closed 06/11/2020 07/11/2021 1 1 Encounter Details Date Type Department Care Team (Late st Contact Info) Description 06/23/2020 9:00 AM ADVISER SALES Diagnostic [facility] Orthopaedic Surgery [address] [place] [address] Nicolas Stokes MD [address] [facility] [address] [address] [address] [place] [address] Numbness and tingling in both hands Social History Tobacco Use Types Packs/Day Years Used Date Smoking Tobacco: Never Smokeless Tobacco: Current Snuff Alcohol Use Standard Drinks/Week Comments Yes 0 (1 standard drink = 0.6 oz pur e alcohol) SOCIAL Sex and Gender Information Value Date Recorded Sex Assigned at Not on file 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:34 PM ADVISER SALES Gender Identity Not on file Sexual Orientation Not on file documented as of this encounter Progress Notes * Nicolas Mejía MD - 06/23/2020 9:00 AM CST Electrodiagnostic evaluation was performed today. Please see full report for details: linked under Media and/or Procedure tabs for this study. Under Media and/or Procedure tab, open this study, click on Neurology Scan to view full report. SER SALES documented in this encounter Plan of Treatment Not on file documented as of this encounter Procedures Procedure Name Priority Date/Time Associated Diagnosis Comments EMG/NCV Routine 06/23/2020 9:09 AM ADVISER SALES Numbness and tingling in both hands documented in this encounter Results * EMG/NCV -Please select the performing region: [facility] (All Locations); Procedure performed at: [facility] Physiatry (06/23/2020 9:09 AM ADVISER SALES) Anatomical Region Laterality Modality Other us Jesusita Jerez MD NEUROLOGY ORDERABLES Final Re sult documented in this encounter Visit Diagnoses Diagnosis Numbness and tingling in both hands documented in this encounter Care Teams Marketing Automation Analyst Relationship Specialty Start Date End Date Charles Vogel MD [address] [place] [address] PCP - General 05/21/19 09/10/21 documented as of this encounter
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
--- OUTSIDE RECORDS SUMMARY | 2024-05-13 11:37 | XMS_ITS | Encounter Summary ---
Author Organization [facility] Healthcare Address [address] [place] [address] Care Team Providers Care Workers Compensation Claims Specialist Name Role Phone Pankaj Rosenberg MD Primary Care Provider [phone] Encounter Details Date Type Department Care Team (Latest Contact Info) Description 09/11/2021 11:36 PM CDT - 09/15/2021 3:51 PM CDT Hospital Encounter [facility] [address] [place] [address] Desmond Ro DO [id number] [place] [id number] Discharge Disposition: Discharge to home or self care Social History Tobacco Use Types Packs/Day Years Used Date Smoking Tobacco: Never Smokeless Tobacco: Former Snuff Quit: 09/12/2020 Alcohol Use Standard Drinks/Week Comments Yes 0 (1 standard drink = 0.6 oz pur e alcohol) SOCIAL Sex and Gender Information Value Date Recorded Sex Assigned at Not on file 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:34 PM RN CRITICAL CARE Gender Identity Not on file Sexual Orientation [...] Cholesterolosis of gallbladder - CHOLESTEROLOSIS OF GALLBLADDER lobsterman (current) use of oral hypoglycemic drugs - CIRCULATION CREW LEADER (CURRENT) USE OF ORAL HYPOGLYCEMIC DRUGS Other salvage determiner (current) drug therapy - OTHER CIRCULATION CREW LEADER (CURRENT) DRUG THERAPY Family history of ischemic heart disease and other diseases of the circulatory system - FAMILY HISTORY OF ISCHEMIC HEART DISEASE AND OTHER DISEASES OF THE CIRCULATORY SYSTEM documented in this encounter Discharge Summaries * Desmond Ro DO - 09/15/2021 2:14 PM CDT Inpatient Discharge Summary Patient Name - Chuck Barlow Patient Age - 26 yrs Patient - [id number] [facility] - [id number] Document Creation Date: 09/15/2021 Admitting Provider, MD: Jovita Cardoso MD Discharge Provider, : Desmond Ro DO Primary Care Physician at Discharge: Pankaj Rosenberg MD [phone] Admission Date: 09/11/2021 Discharge Date/time: 09/15/2021 Admission Location: [facility] LOS - LOS: 4 days DETAILS OF HOSPITAL STAY Hospital Problems/Diagnoses Principal Problem: Severe Partial Small Bowel Obstruction Active Problems: Allergic rhinitis Primary hypertension Pure hypercholesterolemia Gastroesophageal reflux disease without esophagitis KARRIE (obstructive sleep apnea) Controlled type 2 diabetes mellitus without complication, without long-term current use of insulin ([facility]/HCC) (HCC) 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 Per H&P HPI: Patient presented to the ER at [facility] with complaints of mid abdominal pain [...] followed by GI doctor Bob Oneal in [place] for other issues he has been referred [...] an appointment with a general surgeon in [place] later in the week with respect to [...] insurance, Nellir, is out of network for [facility] and [facility]. The patient was informed of this and [...] Informed pt that Nellir is in-network with [facility] facilities, ie. [facility], [facility], [facility], [facility], & also [facility]. Attending & General Surgery informed & state pt is stable for transfer. Pt/family agreeable to transfer to in-network facility. [facility] was provided to attending to initiate transfer process (P:??[phone], [facility] [phone], [facility] [phone])/ However, after notification received from , MIKE called [facility] but was given instructions on a different process. This was escalated to CM Cardiothoracic Anesthesia Technician Christianne for follow-up. ?? This occurred as [...] uncle, had been in communication with the fixed wing aircraft crew chief at [facility] and that the patient would be accepted and have a bed there. I contacted the transfer center again. They reported that [facility] did n ot have any beds and it would be a 3-5 day wait. They do have beds at [facility] and would start the transfer process there. I asked them to continue that process and I would contact the family to ask for their consent or redirection. They reported that they had assurances that [facility] would beable to take them, to place [...] given the direct contact number for the [facility] GRINDING AND SPRAYING SUPERVISOR and called it to add them to the call and attempt to sort this out. There was no answer and a message was left detailing the situation. The transfer center reported that a new person would be taking over the case as the one I had been speaking with was going off shift. I asked if they could provide me with the property preservation specialist case management or social work number so that I may relay it to the property preservation specialist medical case manager or social security specialist at [facility]. I did not hear back on 09/14. He received a bed at [facility] on September 15. I updated him [...] Bony Tristan M.D. AG: CALI Report ID: [id number] Reading Location: [place] [address] Recent Labs: Recent Labs Lab Units 09/15/[id number]/[id number] [...] 0.61* -- 0.63* -- 0.71* -- 0.64* TVZ-WND-DSVNITH mL/min/1.73 m2 -- 135 -- 134 -- [...] Departure Means Destination Discharge to home or [facility] care [facility] documented in this encounter Progress Notes * Jayce Yousif MD - 09/15/2021 10:15 AM CDT General Surgery Daily Progress Subjective F/u abd pain Feels slightly better with NG No flatus, no BM Awaiting transfer to [facility] Current Facility-Administered Medications: ??? acetaminophen (TYLENOL) tablet 650 mg, 650 mg, oral, Q4H PRN, Brenad Chicas JOB CHECKER ? ? al & mag hydroxide otbmoziraeb-ygueuhghpqscowb-vnckbogya-nystatin (MAGIC MOUTHWASH) suspension 1-1-1-1, 15 mL, swish [...] 0.9% infusion (premix), 100 mL/hr, intravenous, Continuous, Bernda Chicas NP, Last Rate: 100 mL/hr at [...] 10 mg, 10 mg, oral, Daily PRN, Desomnd Ro DO ??? montelukast (SINGULAIR) tablet 10 [...] From: Patient (09/14/211439) Admission Source: Transfer from [facility] Impression: c/o abd pain, nausea, vomiting; PSBO Plan Includes: General Surgery consulted, IVF, NPO, NG-Tube to LIS, pain management, antiemetics. Primary Source of Transportation: Does the patient need discharge transport arranged?: No (09/14/211439) Health Insurance Coverage: [employer] of [place] Prescription Coverage: [facility] ([facility]) Pharmacy: [place], [place] Primary Care Provider: Pankaj Rosenberg MD -- Pt will make follow-up appointment. Prior to Admission: Primary Caregiver: Self Support System: Family members, Spouse/Significant Other Support system contact info (name, phone, availablity): Uche Barlow, father [phone]; Lizeth Barlow,mother [phone] Home Care Services: No Durable Medical Equipment: [...] Informed pt that Ambetter is in-network with [facility] facilities, ie. [facility], [facility], [facility], [facility], & also [facility]. Attending MD & General Surgery informed & state [facility]. Pt/family agreeable to transfer to in-network facility. [facility] Access Line was provided to attending MD to initiate transfer process (P: [phone], [facility] [phone], [facility] [phone])/ However, after notification received from , CM called [facility] Access Line but was given instructions brenda different process. This was escalated to Cardiothoracic Anesthesia Technician Christianne for follow-up. Patient's Identified Problem/Goal Problem: [...] access to community resources. MARLENE Cortez-BRYANT [facility] [phone] * Desmond Ro DO - 09/14/2021 11:15 AM CDT Hospitalist Progress Note Patient Information Name: Chuck Barlow Date of : 1995 (26 y.o.) Date of Service: 09/14/2021 at 7:44 PM Chief Complaint: Abdominal Pain Original History of Present Illness (HPI) and Brief Hospital Course Chuck Barlow is a 26 y.o. male admitted to [facility] on September 11, 2021 with a chief complaint of abdominal pain. Per H&P HPI: Patient presented to the ER at [facility] with complaints of mid abdominal pain rated at worsen 9/18. Patient stated pain began gradually 3 days agohe noted an associated fever. Pain continued to worsen, night pain was so severe patient was unable to sleep described as sharp and burning he came to the emergency room in the morning. Patient stated he has been followed by GI doctor Bob Oneal in [place] for other issues he has been referred [...] an appointment with a general surgeon in [place] later in the week with respect to [...] management informed hospitalist staff that his insurance, [employer], is out of network for [facility] and [facility]. 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 Pt's completed a [...] pt that Arron is in- network with [facility] facilities, ie. [facility], [place], [facility], [facility], & also [facility]. Attending MD & General Surgeryinformed & state pt is stable for transfer. Pt/family agreeable to transfer to in-network facility. [facility] was provided to attending MD to initiate transfer process (P: [phone], [facility] [phone], [facility] [phone])/ However, after notification received from MD, CM called [facility] but was given instructions on a different process. This was escalated to CM Cardiothoracic Anesthesia Technician Chrsitianne for follow-up. This occurred as above. As [...] uncle, had been in communication with the fixed wing aircraft crew chief at [facility] and that the patient would be accepted and have a bed there. I contacted the transfer center again. They reported that [facility] did n ot have any beds and it would be a 3-5 day wait. They do have beds at [facility] and would start the transfer process there. I asked them to continue that process and I would contact the family to ask for their consent or redirection. They reported that they had assurances that [facility] would beable to take them, to place [...] the direct contact number for the U GRINDING AND SPRAYING SUPERVISOR and called it to add them to the call and attempt to sort this out. There was no answer and a message was left detailing the situation. The transfer center reported that a new person would be taking over the case as the one I had been speaking with was going off shift. I asked if they could provide me with the property preservation specialist case management or social work number so that I may relay it to the property preservation specialist medical case manager or social security specialist at [facility]. I did not hear back on [...] HPI and Hospital Course. Voice recognition software (StockUp Direct) was used to complete this document. Air Tester variances and typographical errors may occur despite proofreading. Desmond Ro DO, DEION/RONEL Hospitalist in the [facility] Medical Group [facility] 09/14/2021 7:44 PM * Denice Choe NP - 09/14/2021 10:45 AM CDT [facility] Surgery Progress Note Follow up abdominal pain, [...] ASSESSMENT/PLAN: Principal Problem: SBO (small bowel obstruction) ([facility]) ([facility]) Active Problems: Allergic rhinitis Primary hypertension Pure hypercholesterolemia Gastroesophageal reflux disease without esophagitis KARRIE (obstructive sleep apnea) Controlled type 2 diabetes mellitus without complication, without long-term current use of insulin ([facility]) ([facility]) 1. 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 - NPO - IVFs - Pain control - Antiemetics - Notified by case management, patient insurance is [id number]. Patient is stable for transfer. [facility] [phone] - NGT to [facility] Cosigned by Jayce Yousif MD at 09/14/2021 12:49 PM CDT * Desmond Ro DO - 09/13/2021 4:43 PM CDT Hospitalist Progress Note Patient Information Name: Chuck Barlow Date of : 1995 (26 y.o.) Date of Service: 09/13/2021 at 4:43 PM Chief Complaint: Abdominal Pain Original History of Present Illness (HPI) and Brief Hospital Course Chuck Barlow is a 26 y.o. male admitted to [facility] on September 11, 2021 with a chief complaint of abdominal pain. Per H&P HPI: Patient presented to the ER at [facility] with complaints of mid abdominal pain rated at worsen 9/18. Patient stated pain began gradually 3 days agohe noted an associated fever. Pain continued to worsen, night pain was so severe patient was unable to sleep described as sharp and burning he came to the emergency room in the morning. Patient stated he has been followed by GI doctor Bob Oneal in [place] for other issues he has been referred [...] an appointment with a general surgeon in [place] later in the week with respect to [...] to home. MDM: high Voice recognition software (MCapt'nSocial Fluency Direct) was used to complete this document. Air Tester variances and typographical errors may occur despite proofreading. Desmond Ro DO, FM/NMM Hospitalist in the [facility] Medical Group [facility] 09/13/2021 4:43 PM * Jayce Yousif MD - 09/13/2021 2:10 PM CDT General Surgery Daily Progress Subjective F/u on abd pain Had severe pain again in the AM More nausea Undergoing SBFT today No flatus, no BM Current Facility-Administered Medications: ??? acetaminophen (TYLENOL) tablet 650 mg, 650 mg, oral, Q4H PRN, Brenda Chicas, JOB CHECKER ??? amLODIPine (NORVASC) tablet 10 mg, 10 mg, oral, Daily, Brenda Chicas, JOB CHECKER, 10 mg at 09/13/21 0848 ??? dicyclomine (BENTYL) tablet 20 mg, 20 mg, oral, QID PRN, Desmond Ro DO, 20 mg at 09/12/21 1435 ??? enoxaparin (LOVENOX) syringe 40 mg, 40 mg, subcutaneous, Daily-2100, Brenda Chicas, JOB CHECKER, 40 mg at 09/12/212134 ??? HYDROmorphone (DILAUDID) injection 2 mg, 2 mg, intravenous, Q2H PRN, Brenda Chicas, JOB CHECKER, 2 mg at 09/13/21 1409 ??? lisinopriL (PRINIVIL,ZESTRIL) tablet 20 mg, 20 mg, oral, Daily, Brenda Chicas, JOB CHECKER, 20 mgat 09/13/21 0848 ??? loratadine (CLARITIN) tablet 10 mg, 10 mg, oral, Daily, Desmond oR DO ??? montelukast (SINGULAIR) tablet 10 mg, 10 mg, oral, Nightly, Brenda Chicas, JOB CHECKER, 10 mg at 04/30/22 2135 ??? ondansetron [...] mg, 40 mg, oral, Daily, MarianneG. Aviva, JOB CHECKER, 40 mg at 09/13/21 0848 ??? pravastatin (PRAVACHOL) tablet 40 mg, 40 mg, oral, Nightly, Brenda Chicas, JOB CHECKER, 40 mg at 09/12/212134 ??? prochlorperazine (COMPAZINE) injection 5 mg, 5 mg, intravenous, Q6H PRN, Desmond Ro, DO, 5 mg at 09/12/21 1924 ??? prochlorperazine (COMPAZINE) tablet 5 mg, 5 mg, oral, QID PRN, Desmond Ro, DO ??? sodium chloride 0.9% flush 0.5-20 mL, 0.5-20 mL, intra-catheter, Q8H KARTHIK, Brenda Chicas,JOB CHECKER, 10 mL at 09/12/212135 ??? sodium chloride 0.9% flush 0.5-20 mL, 0.5-20 mL, intra-catheter, PRN, Brenda Chicas, JOB CHECKER ??? sodium chloride 0.9% infusion, 100 mL/hr, [...] is a 26 y.o. male admitted to [facility] on September 11, 2021 with a chief complaint of abdominal pain. Per H&P HPI: Patient presented to the ER at [facility] with complaints of mid abdominal pain rated at worsen 9/18. Patient stated pain began gradually 3 days agohe noted an associated fever. Pain continued to worsen, night pain was so severe patient was unable to sleep described as sharp and burning he came to the emergency room in the morning. Patient stated he has been followed by GI doctor Bob Oneal in [place] for other issues he has been referred [...] an appointment with a general surgeon in [place] later in the week with respect to [...] time included: see HPI. Voice recognition software (StockUp Direct) was used to complete this document. Air Tester variances and typographical errors may occur despite proofreading. Desmond Ro DO, DEION/RONEL Hospitalist in the [facility] Medical Group [facility] 09/12/2021 5:23 PM documented in this encounter H&P Notes * Brenda Chicas JOB CHECKER - 09/11/2021 11:55 PM CDT History and Physical DATE OF SERVICE: 09/12/2021 2:07 AM Primary Care Physician: Pankaj Rosenberg MD [phone] SUBJECTIVE: Patient is a 26 y.o. male with a PMHx significant for allergic rhinitis, Gastroschisis,HTN and HLD Patient presents to ED with chief complaint of Abdominal pain. HPI: Patient presented to the ER at [facility] with complaints of mid abdominal pain [...] followed by GI doctor Bob Oneal in [place] for other issues he has been referred [...] / OMPHALOCELE 1995 CHILDRENS ??? SEPTOPLASTY 2019 [facility] Medications Prior to Admission Medication Sig Dispense [...] Principal Problem: SBO (small bowel obstruction) (CMS/HCC) ([facility]) Active Problems: Allergic rhinitis Primary hypertension Pure hypercholesterolemia Gastroesophageal reflux disease without esophagitis KARRIE (obstructive sleep apnea) Controlled type 2 diabetes mellitus without complication, without long-term current use of insulin (CMS/HCC) ([facility]) 1. SBO- CT noted dilated small bowel [...] Stay: Inpatient > 3 midnights Brenda Chicas COUNTS INCLUDE 234 BEDS AT THE [facility] Hospitalists [id number] 09/12/2021 2:07 AM IBrenda [facility], spent 34 min on the management [...] extensive work up at multiple facilities in [place] ([facility], [facility]). Pain mostly in the supraumbilical [...] He was referred to a surgeon in [place] for potential cholecystectomy but never made it to his appointment. In the last 48 hours, he has had increasing abd pain associated with nausea/emesis. Pain has been constant and localized in the supraumbilical region. He reports low grade fevers. Also had diarrhea yesterday. He went to the ED at [facility] yesterday and was transferred to [facility] as there was no general surgery coverage. [...] / OMPHALOCELE 1995 CHILDRENS ??? SEPTOPLASTY 2019 [facility] MEDICATIONS : amLODIPine (NORVASC) 5 mg tablet [...] an appointment with a general surgeon in [place] later in the week with respect to [...] Monitor labs, tele, vitals Summary: Discharged to [facility]. IV access and NG in place * Plan of Care - Maria L Mercedes RN - 09/15/2021 12:06 PM CDT Per director of medical staff services Betty, she received notification of [facility] Hospital bed assignment per Dr. Gilbert, room 528, report ph# [phone]. truck trailer final inspector to complete transfer authorization & CMN forms & arrange EMS transport. No further CM follow-up needed. MARLENE Cortez-BRYANT [facility] [phone] * Plan of Care - Maria L Mercedes RN - 09/15/2021 11:44 AM CDT CM informed pt & significant other Mary at bedside that he has assigned bed at [facility] pending bed occupancy. Await notification from [facility] with bed assignment. MARLENE Cortez-BRYANT [facility] [phone] * Plan of Care - Christianne Perkins RN - 09/15/2021 9:09 AM CDT Return call from Robyn MCCLAIN not received. Call placed to [facility], spoke with SARAHI Hinojosa, who confirmed that they take pt.'s Amb[employer] insurance. Call placed to the [facility] access line. Pt. is currently on the waiting list for a bed at [facility] and is assigned to one but it is currently occupied, once that pt. discharges and bed is ready they will calland let us know. Dr. Ro & Anshul Mercedes RN CM notified. Christianne Perkins RN BSN, Cardiothoracic Anesthesia Technician [phone]' * Plan of Care - Christianne Perkins [...] always supposed to be. Call placed to [facility], spoke with a SW - Roberto, she is not aware of this process and referred me to her production reproduction manager, Sarah - [phone]. Message left for Sarah with this information requesting a return call. Christianne Perkins RN BSN, Cardiothoracic Anesthesia Technician [phone] * Plan of Care - Katlyn Hernandez [...] Summary: RECEIVED PATIENT A DIRECT ADMIT FROM [facility], VIA STRETCHER, ALERT AND ORIENTED. REPORT RECEIVED [...] GELACIO CE Final Result Performing Organization Address City/State/[facility] Co de Phone Number SENAIT [address] [address] [place] [address] * eGFR (09/15/2021 5:29 AM CDT) eGFR [...] Ro DO LAB BLOOD ORDERABLES Final Result [facility] [address] [address] [place] [address] * (ABNORMAL) Differential, auto (09/15/2021 5:29 AM CDT) Neutrophil abs 6.6(H) 1.7 - 6.5 K/[facility] gran abs 0.1 0.0 - 0.1 K/cumm [facility] Lymphocyte abs 1.8 0.8 - 3.3 K/cumm [facility] Monocyte abs 0.7 0.2 - 0.8 K/cumm [facility] Eosinophil abs 0.1 0.0 - 0.5 K/cumm [facility] Basophil abs 0.0 0.0 - 0.1 K/cumm [facility] Neutrophil pct 71.3 % [facility] Comment: Interpretive Data Percent cell count reference ranges are not reported, since discordance with absolute values may lead to misinterpretation of CBC data. Current Interpretive Data was last revised on 2017. Imm gran pct 0.5 % [facility] Comment: Interpretive Data Percent cell count reference ranges are not reported, since discordance with absolute values may lead to misinterpretation of CBC data. Current Interpretive Data was last revised on 2017. Lymphocyte pct 19.1 % [facility] Comment: Interpretive Data Percent cell count reference ranges are not reported, since discordance with absolute values may lead to misinterpretation of CBC data. Current Interpretive Data was last revised on 2017. Monocyte pct 7.6 % [facility] Comment: Interpretive Data Percent cell count reference ranges are not reported, since discordance with absolute values may lead to misinterpretation of CBC data. Current Interpretive Data was last revised on 2017. Eosinophil pct 1.2 % [facility] Comment: Interpretive Data Percent cell count reference ranges are not reported, since discordance with absolute values may lead to misinterpretation of CBC data. Current Interpretive Data was last revised on 2017. Basophil pct 0.3 % [facility] Comment: Interpretive Data Percent cell count reference ranges are not reported, since discordance with absolute values may lead to misinterpretation of CBC data. Current Interpretive Data was last revised on 2017. Blood 09/15/2021 5:29 AM CDT 09/15/2021 5:36 AM CDT Desmond Ro DO LAB BLOOD ORDERABLES Final Result [facility] [address] Department [place] [address] * (ABNORMAL) CBC with auto differential (09/15/2021 5:29 AM CDT) WBC 9.3 3.8 - 9.9 K/cumm [facility] Hgb 12.8(L) 13.0 - 17.5 g/dL [facility] Hct 39.2 38.9 - 50.3 % [facility] Plt 319 150 - 400 K/cumm [facility] MPV 9.8 9.1 - 12.3 fL [facility] RBC 4.58 4.30 - 5.80 M/cumm [facility] MCV 85.6 81.3 - 96.4 fL [facility] MCH 27.9 27.1 - 33.3 pg [facility] MCHC 32.7 32.3 - 35.7 g/dL [facility] RDW CV 12.0 11.1 - 14.9 % [facility] RDW SD 37.2 35.7 - 48.1 fL [facility] NRBC abs 0.00 0.00 - 0.01 K/cumm [facility] Blood 09/15/2021 5:29 AM CDT 09/15/2021 5:36 AM CDT Desmond Ro DO LAB BLOOD ORDERABLES Final Result [facility] [address] Department [place] [address] * (ABNORMAL) Comprehensive metabolic panel (09/15/2021 5:29 [...] BLOOD ORDERABLES Final Result Performing Organization Address [facility]/ZIP Co de Phone Number [facility] NE[facility] [address] [facility] [place] [address] * POCT glucose (09/15/2021 3:32 AM CDT) Glucose, POC 97 70 - 199 mg/dL [facility] Blood 09/15/2021 3:32 AM CDT 09/15/2021 3:32 AM CDT [facility] POCT ORDERABLES - GELACIO CE Final Result Performing Organization Address [facility] Co de Phone Number [facility] NEAL [address] [address] [facility] [place] [address] * POCT glucose (09/14/2021 8:01 PM CDT) Glucose, POC 71 70 - 199 mg/dL [facility] Blood 09/14/2021 8:01 PM CDT 09/14/2021 8:01 PM CDT us [facility] POCT ORDERABLES - GELACIO CE Final Result Performing Organization Address [facility] Co de Phone Number [facility] NEAL [address] Department [place] [address] * XR Abdomen Ap 1 Vw (09/14/2021 [...] - GELACIO CE Final Result [facility] [address] [place] [address] * FL Small Bowel Series (09/13/2021 6:04 [...] CT abdomen/pelvis from 09/11/2021. FINDINGS: ?? The pickup driver radiographs of the abdomen demonstrate mildly dilated [...] COMPARISON: CT abdomen/pelvis from 09/11/2021. FINDINGS: The pickup driver radiographs of the abdomen demonstrate mildly dilated [...] DO LAB BLOOD ORDERABLES Final Result [facility] [address] [place] [address] * Differential, auto (09/13/2021 8:36 AM CDT) Neutrophil abs 6.0 1.7 - 6.5 K/cumm [facility] Imm gran abs 0.0 0.0 - 0.1 K/cumm [facility] Lymphocyte abs 1.2 0.8 - 3.3 K/cumm [facility] Monocyte abs 0.6 0.2 - 0.8 K/cumm [facility] Eosinophil abs 0.1 0.0 - 0.5 K/cumm [facility] Basophil abs 0.0 0.0 - 0.1 K/cumm [facility] Neutrophil pct 76.0 % [facility] Comment: Interpretive Data Percent cell count reference ranges are not reported, since discordance with absolute values may lead to misinterpretation of CBC data. Current Interpretive Data was last revised on 2017. Imm gran pct 0.4 % [facility] Comment: Interpretive Data Percent cell count reference ranges are not reported, since discordance with absolute values may lead to misinterpretation of CBC data. Current Interpretive Data was last revised on 2017. Lymphocyte pct 14.9 % [facility] Comment: Interpretive Data Percent cell count reference ranges are not reported, since discordance with absolute values may lead to misinterpretation of CBC data. Current Interpretive Data was last revised on 2017. Monocyte pct 7.5 % [facility] Comment: Interpretive Data Percent cell count reference ranges are not reported, since discordance with absolute values may lead to misinterpretation of CBC data. Current Interpretive Data was last revised on 2017. Eosinophil pct 0.9 % [facility] Comment: Interpretive Data Percent cell count reference ranges are not reported, since discordance with absolute values may lead to misinterpretation of CBC data. Current Interpretive Data was last revised on 2017. Basophil pct 0.3 % [facility] Comment: Interpretive Data Percent cell count reference ranges are not reported, since discordance with absolute values may lead to misinterpretation of CBC data. Current Interpretive Data was last revised on 2017. Blood 09/13/2021 8:36 AM CDT 09/13/2021 8:46 AM CDT us Desmond Ro LAB BLOOD ORDERABLES Final [facility] [address] Department [place] [address] * (ABNORMAL) Basic metabolic panel (09/13/2021 8:36 AM CDT) Sodium 135 135 - 145 mmol/L [facility] Potassium, pl 4.2 3.3 - 4.9 mmol/L [facility] Chloride 101 97 - 110 mmol/L [facility] CO2 24 22 - 32 mmol/L [facility] Anion gap 10 2 - 15 mmol/L [facility] BUN 10 8 - 25 mg/dL [facility] Creatinine 0.63(L) 0.80 - 1.30 mg/dL [facility] Glucose 122 70 - 199 mg/dL [facility] Comment: Interpretive Data Fasting glucose >/= 126 [...] 2017. Calcium 9.1 8.5 - 10.3 mg/dL [facility] Blood 09/13/2021 8:36 AM CDT 09/13/2021 8:46 AM CDT Desmondjason [facility] BLOOD ORDERABLES Final Result [facility] [address] Department of [place] [address] * CBC with auto differential (09/13/2021 8:36 AM CDT) WBC 7.9 3.8 - 9.9 K/cumm [facility] Hgb 13.1 13.0 - 17.5 g/dL [facility] Hct 40.3 38.9 - 50.3 % [facility] Plt 281 150 - 400 K/cumm [facility] MPV 10.1 9.1 - 12.3 fL [facility] RBC 4.53 4.30 - 5.80 M/cumm [facility] MCV 89.0 81.3 - 96.4 fL [facility] MCH 28.9 27.1 - 33.3 pg [facility] MCHC 32.5 32.3 - 35.7 g/dL [facility] RDW CV 12.1 11.1 - 14.9 % [facility] RDW SD 39.7 35.7 - 48.1 fL [facility] NRBC abs 0.00 0.00 - 0.01 K/cumm [facility] Blood 09/13/2021 8:36 AM CDT 09/13/2021 8:46 AM CDT Desmond Karthik [facility] BLOOD ORDERABLES Final Result [facility] [address] Department of [employer] [address] * POCT glucose (09/12/2021 5:09 PM CDT) Glucose, POC 96 70 - 199 mg/dL [facility] Blood 09/12/2021 5:09 PM CDT 09/12/2021 5:09 PM CDT Desmond Ro DO LAB POCT ORDERABLES - GELACIO CE Final Result Performing Organization Address City/[facility]/ZIP Co de Phone Number [facility] [address] Department [employer] [address] * POCT glucose (09/12/2021 8:20 AM CDT) Glucose, POC 116 70 - 199 mg/dL [facility] Blood 09/12/2021 8:20 AM CDT 09/12/2021 8:20 AM CDT Desmond Ro DO LAB POCT ORDERABLES - GELACIO CE Final Result Performing Organization Address [facility] de Phone Number [facility] NEAL [address] Department of [place] [address] * eGFR (09/12/2021 5:27 AM CDT) eGFR 129 mL/min/1. 73 m2 [facility] Comment: Interpretive Data Reference Interval Normal ?>/= [...] NP LAB BLOOD ORDERABLES Alexandra eaton Result [facility] [address] Department [place] [address] * (ABNORMAL) Differential, auto (09/12/2021 5:27 AM CDT) Neutrophil abs 8.7(H) 1.7 - 6.5 K/cumm [facility] Imm gran abs 0.1 0.0 - 0.1 K/cumm [facility] Lymphocyte abs 1.6 0.8 - 3.3 K/cumm [facility] Monocyte abs 0.7 0.2 - 0.8 K/cumm [facility] Eosinophil abs 0.2 0.0 - 0.5 K/cumm [facility] Basophil abs 0.0 0.0 - 0.1 K/cumm [facility] Neutrophil pct 77.6 % [facility] Comment: Interpretive Data Percent cell count reference ranges are not reported, since discordance with absolute values may lead to misinterpretation of CBC data. Current Interpretive Data was last revised on 2017. Imm gran pct 0.4 % [facility] Comment: Interpretive Data Percent cell count reference ranges are not reported, since discordance with absolute values may lead to misinterpretation of CBC data. Current Interpretive Data was last revised on 2017. Lymphocyte pct 14.2 % [facility] Comment: Interpretive Data Percent cell count reference ranges are not reported, since discordance with absolute values may lead to misinterpretation of CBC data. Current Interpretive Data was last revised on 2017. Monocyte pct 6.2 % [facility] Comment: Interpretive Data Percent cell count reference ranges are not reported, since discordance with absolute values may lead to misinterpretation of CBC data. Current Interpretive Data was last revised on 2017. Eosinophil pct 1.3 % [facility] Comment: Interpretive Data Percent cell count reference ranges are not reported, since discordance with absolute values may lead to misinterpretation of CBC data. Current Interpretive Data was last revised on 2017. Basophil pct 0.3 % [facility] Comment: Interpretive Data Percent cell count reference ranges are not reported, since discordance with absolute values may lead to misinterpretation of CBC data. Current Interpretive Data was last revised on 2017. Blood 09/12/2021 5:27 AM CDT 09/12/2021 6:04 AM CDT Brenda Chicas JOB CHECKER LAB BLOOD ORDERABLES Alexandra l Result [facility] [address] [place] [address] * (ABNORMAL) CBC with auto differential (09/12/2021 5:27 AM CDT) WBC 11.2(H) 3.8 - 9.9 K/cumm [facility] Hgb 13.6 13.0 - 17.5 g/dL [facility] Hct 42.0 38.9 - 50.3 % [facility] Plt 302 150 - 400 K/cumm [facility] MPV 10.3 9.1 - 12.3 fL [facility] RBC 4.81 4.30 - 5.80 M/cumm [facility] MCV 87.3 81.3 - 96.4 fL [facility] MCH 28.3 27.1 - 33.3 pg [facility] MCHC 32.4 32.3 - 35.7 g/dL [facility] RDW CV 12.6 11.1 - 14.9 % [facility] RDW SD 40.6 35.7 - 48.1 fL [facility] NRBC abs 0.00 0.00 - 0.01 K/cumm [facility] Blood 09/12/2021 5:27 AM CDT 09/12/2021 6:04 AM CDT Brenda Chicas JOB CHECKER LAB BLOOD ORDERABLES Alexandra l Result Performing Organization Address City/[facility]/ZIP Co de Phone Number [facility] NEAL [address] [facility] [place] [address] * Phosphorus (09/12/2021 5:27 AM CDT) Pathologist [facility] Phosphorus, pl 4.0 2.3 - 4.5 mg/dL [facility] Blood 09/12/2021 5:27 AM CDT 09/12/2021 6:04 AM CDT Brenda Chicas JOB CHECKER LAB BLOOD ORDERABLES Alexandra l Result Performing Organization Address [facility] de Phone Number [facility] NE[facility] [address] [place] [address] * Magnesium (09/12/2021 5:27 AM CDT) Pathologist [facility] Magnesium 2.0 1.4 - 2.5 mg/dL [facility] Blood 09/12/2021 5:27 AM CDT 09/12/2021 6:04 AM CDT Brenda Chicas JOB CHECKER LAB BLOOD ORDERABLES Alexandra l Result Performing Organization Address [facility] de Phone Number [facility] [address] [address] [facility] [place] [address] * (ABNORMAL) Comprehensive metabolic panel (09/12/2021 5:27 AM CDT) Pathologist [facility] Sodium 137 135 - 145 mmol/L [facility] Potassium, pl 3.9 3.3 - 4.9 mmol/L [facility] Chloride 103 97 - 110 mmol/L [facility] CO2 21(L) 22 - 32 mmol/L [...] CDT 09/12/2021 6:04 AM CDT Brenda Chicas JOB CHECKER LAB BLOOD ORDERABLES Alexandra l Result [facility] [address] [employer] [place], [place] [id number] * POCT glucose (09/12/2021 2:27 AM CDT) Glucose, POC 97 70 - 199 mg/dL [facility] Blood 09/12/2021 2:27 AM CDT 09/12/2021 2:27 AM CDT Desmond Ro DO LAB POCT ORDERABLES - GELACIO CE Final Result [facility] [address] [employer] [place] [address] documented in this encounter Visit Diagnoses Diagnosis [...] Indications: Fever, PainIndications:Fever,Pain al & mag hydroxide agjiveyfyzk-hxrsohkufwenwmc-xtzqyia ne-nystatin (MAGIC MOUTHWASH) suspension 1-1-1-1 15 mL, [...] Marla Nash RN) 2057 (Given - Provider: Mrala Nash RN) lisinopriL (PRINIVIL,ZESTRIL) tablet 20 mg [...] - Reason: Other - Comment: pt. with T-Brneda Chicas Aware) pantoprazole DR (PROTONIX) extended release [...] Fever, Pain al & mag hydroxide simethicone-diphenhydrami rn-mlaigootv-cgccjwma (MAGIC MOUTHWASH) suspension 1-1-1-1 15 mL, swish [...] Provider: Katlyn Hernandez RN)1039 (Given - Provider: Ktalyn Hernandez RN)1409 (Given - Provider: Katlyn Hernandez [...] First Ordered Date al & mag hydroxide pwjofxbiaul-ipldimgnstiyoco-uogpedmzr-nyst atin (MAGIC MOUTHWASH) suspension 1-1-1-1 1 09/14/2021 [...] 09/12/2021 documented in this encounter Care Teams Workers Compensation Claims Specialist Relationship Specialty Start Date End Date Pankaj Rosenberg MD [address] [place] [address] PCP - General 09/11/21 documented as of this encounter
--- OUTSIDE RECORDS SUMMARY | 2024-05-13 11:37 | XMS_ITS | Encounter Summary ---
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
--- OUTSIDE RECORDS SUMMARY | 2024-05-13 11:37 | XMS_ITS | Encounter Summary ---
Author Organization [facility] Address [address] [place] [address] Phone Care Team Providers Care Pipeline Executive Name Role Phone Charles Vogel MD Primary Care Provider [phone] Encounter Details Date Type Department Care Team (Late st Contact Info) Description 07/14/2020 Telephone [facility] Orthopaedic Surgery [address] [place] [address] [place] [address] [place] [address] Social History Tobacco Use Types Packs/Day Years Used Date Smoking Tobacco: Never Smokeless Tobacco: Current Snuff Alcohol Use Standard Drinks/Week Comments Yes 0 (1 standard drink = 0.6 oz pur e alcohol) SOCIAL Sex and Gender Information Value Date Recorded Sex Assigned at Not on file 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:34 PM SHIP/REC/DOC CONTROL Gender Identity Not on file Sexual Orientation Not on file documented as of this encounter Miscellaneous Notes * Telephone Encounter - Winsome Echevarria, [facility] - 07/14/2020 9:38 AM CST Lm for pt informing him that (per Dr. Jerez) his EMG was negative. If he is doing well with therapy he should continue, but if he is struggling Dr. Jerez would like him to come in the office to see her. /REC/DOC CONTROL * Telephone Encounter - Winsome Echevarria RMA - 07/14/2020 9:38 AM CST ----- Message from Jesusita Jerez MD sent at 07/11/2020 7:31 AM SHIP/REC/DOC CONTROL ----- Looks like the nerve studies were negative. 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 If he is still struggling, then he should come back in and see me. ----- Message ----- From: [facility] Incoming Scans - Cdr Via Onbase [[id number]] Sent: 07/08/2020 4:05 PM SHIP/REC/DOC CONTROL To: Jesusita Jerez MD /REC/DOC CONTROL documented in this encounter Plan of Treatment Not on file documented as of this encounter Visit Diagnoses Not on filedocumented in this encounter Care Teams Pipeline Executive Relationship Specialty Start Date End Date Cahr[place] [address] [place] [address] PCP - General 05/21/19 09/10/21 documented as of this encounter
--- OUTSIDE RECORDS SUMMARY | 2024-05-13 11:37 | XMS_ITS | Encounter Summary ---
Author Organization [facility] Address [address] [place] [address] Phone Care Team Providers Care Lion Trainer Name Role Phone Charles Vogel MD Primary Care Provider [phone] Reason for Referral * Neurology (Routine) - Closed Specialty Diagnoses / Procedures Referred By Contac t Referred To Contact Diagnoses Numbness and tingling in both hands Procedures EMG/NCV -Please select the performing region: [facility] (All Locations); Procedure performed at: [facility] Jesusita Jerez MD Phone: tel: fax: [facility] (All Locations) Referral ID Status Reason Start Date Expiration Date Visits Re quested Visits Authorized [id number] Closed 06/11/2020 07/11/2021 1 1 MILL OPERATOR Reason for Visit * Reason Comments Pain Pain Encounter Details Date Type Department Care Team (Latest Contact Info) Description 06/11/2020 1:20 PM GLUE MILL OPERATOR Office Visit [facility] Orthopaedic Surgery [address] [place] [address] [place] [address] [place] [address] Numbness and tingling in both hands (Primary [...] on file 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:34 PM GLUE MILL OPERATOR Gender Identity Not on file Sexual Orientation Not on file documented as of this encounter Last Filed Vital Signs Vital Sign Reading Time Taken Comments Blood Pressure - - Pulse - - Temperature - - Respiratory Rate - - Oxygen Saturation - - Inhaled Oxygen Concentration - - Weight 109.8 kg (242 lb) 06/11/2020 2:20 PM GLUE MILL OPERATOR Height 180.3 cm (5' 11 ) 06/11/2020 2:20 PM GLUE MILL OPERATOR Body Mass Index 33.75 06/11/2020 2:20 PM GLUE MILL OPERATOR documented in this encounter Progress Notes * [...] the plan of care. Jesusita Jerez M.D. Didactic Program In Dietetics Director Hand and Upper Extremity [facility] Jesusita Jerez MD dictating using Fluency Direct. Restaurant Culinary Manager variances may occur. I was present for the critical portion of the history, physical examination and participated in theradiographic review and medical decision making on this patient. I agree with this report which wasgenerated with the assistance of Dr. Santos. MILL OPERATOR documented in this encounter Plan of Treatment Not on file documented as of this encounter Results * EMG/NCV -Please select the performing region: [facility] (All Locations); Procedure performed at: [facility] (06/23/2020 9:09 AM GLUE MILL OPERATOR) Anatomical Region Laterality Modality Other us Jesusita [...] 2 added in this encounter Care Teams Lion Trainer Relationship Specialty Start Date End Date Charles Vogel MD [address] [place] [address] PCP - General 05/21/19 09/10/21 documented as of this encounter
--- OUTSIDE RECORDS SUMMARY | 2024-05-13 11:37 | XMS_ITS | Encounter Summary ---
Author Organization [facility] Healthcare Address [address] [place] [address] Care Team Providers Care Returning Officer Name Role Phone Pankaj Rosenberg MD Primary Care Provider [phone] Encounter Details Date Type Department Care Team (Latest Contact Info) Description 09/15/2021 3:12 PM CDT - 09/15/2021 11:59 PM CDT Hospital Encounter [facility] [address] [place], [place] [id number] Discharge Disposition: Discharge to home or self care Social History Tobacco Use Types Packs/Day Years Used Date Smoking Tobacco: Never Smokeless Tobacco: Former Snuff Quit: 09/12/2020 Alcohol Use Standard Drinks/Week Comments Yes 0 (1 standard drink = 0.6 oz pur e alcohol) SOCIAL Sex and Gender Information Value Date Recorded Sex Assigned at Not on file 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
--- OUTSIDE RECORDS SUMMARY | 2024-05-13 11:38 | XMS_ITS | Encounter Summary ---
Author Organization [facility] Address [address] [place] [address] Care Team Providers Care Railroad Track Repair Supervisor Name Role Phone Charles Vogel MD Primary Care Provider [phone] Reason for Visit * Reason Comments Post-op Encounter Details Date Type Department Care Team (Late st Contact Info) Description 01/10/2020 1:10 PM CDT Office Visit [facility] - [facility] [address] [place] [id number] Louann Zhu, [address] [place] [address] Deviated nasal septum (Primary Dx) Social History Tobacco Use Types Packs/Day Years Used Date Smoking Tobacco: Never Smokeless Tobacco: Current Snuff Alcohol Use Standard Drinks/Week Comments Yes 0 (1 standard drink = 0.6 oz pur e alcohol) Sex and Gender Information Value Date Recorded Sex Assigned at Not on file 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:34 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 Gender Identity Not on file Sexual [...] week Have an appointment to see the Manager Orange 01/22 documented in this encounter Progress Notes [...] week Have an appointment to see the Manager Orange 01/22 Louann Zhu DO documented in this encounter Miscellaneous Notes * Assessment & Plan Note - Louann Zhu DO - 01/10/2020 1:22 PM CDT Associated Problem(s): Deviated nasal septum Continue Nasal saline 2-3 times per day Wear a Mask all the time at work Avoid nose blowing until seen in the office next week Have an appointment to see the Manager Orange 01/22 documented in this encounter Plan of Treatment Not on file documented as of this encounter Visit Diagnoses Diagnosis Deviated nasal septum- Primary documented in this encounter Care Teams Railroad Track Repair Supervisor Relationship Specialty Start Date End Date Charles Vogel MD [address] [place] [address] PCP - General 05/21/19 09/10/21 documented as of this encounter
--- OUTSIDE RECORDS SUMMARY | 2024-05-13 11:38 | XMS_ITS | Encounter Summary ---
Author Organization [facility] Address [address] [place] [address] Care Team Providers Care Goal Umpire Name Role Phone Charles Vogel MD Primary Care Provider +1- [phone] Encounter Details Date Type Department Care Team (Late st Contact Info) Description 01/02/2020 10:41 AM CDT Anesthesia Event [facility] Operating Room 1 [place] [address] Eyad Wise MD [address] [facility] [place] [address] [place] [address] Anesthesia Record Procedure Summary Procedure [...] No se; 04/17/24 (Retired LDA, Removed/Completed by Monthlys with LDA Utility); 1213 (Retired LDA, Removed/Completed by Monthlys with LDA Utility) 01/02/20 1116 by Anita [...] on file 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:34 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 Informed Consent: Discussed plan with SAS PROGRAMMER ANALYST. Anesthesia plan and risks discussed with patient. [...] Procedure Name Priority Date/Time Associated Diagnosis Comments VT AN ELECTIVE ENDOTRACHEAL AIRWAY Routine 01/02/2020 11:05 AM CDT documented in this encounter Results * VT AN ELECTIVE ENDOTRACHEAL AIRWAY (01/02/2020 11:05 AM CDT) Helen Ho CRNA - 01/02/2020 11:05 AM CDT Helen Altman CRNA ? 01/02/2020 11:05 AM Airway Patient location: OR Urgency: elective Indications for airway management: anesthesia Difficult airway: no Staff: Supervising provider: Eyad Wise MD Placed by: SAS PROGRAMMER ANALYST: Helen Altman CRNA Emergent airway documentation: Risks [...] mg documented in this encounter Care Teams Goal Umpire Relationship Specialty Start Date End Date Charles Vogel MD [address] [place] [address] PCP - General 05/21/19 09/10/21 documented as of this encounter
--- OUTSIDE RECORDS SUMMARY | 2024-05-13 11:38 | XMS_ITS | Encounter Summary ---
Author Organization [facility] Healthcare Address [address] [place] [address] Care Team Providers Care Gerontology Aide Name Role Phone Charles Vogel MD Primary Care Provider +1- [phone] Encounter Details Date Type Department Care Team (Late st Contact Info) Description 01/02/2020 11:18 AM CDT - 01/02/2020 12:53 PM CDT Surgery [facility] Operating Room 1 [place] [address] Louann Zhu DO [address] [place] [address] DR GUT[address]ES [address] [address] SEPTOPLASTY and Inferior Turbinate Submucosal Reduction bilaterally. 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 ?? Pain: You [...] nose more comfortable after surgery. These sprays (Blanchard, Grafton, Simple Saline) are chqp-kmv-bzpzyis medications and can be purchased in any [...] using Afrin Who to Call After Surgery: [facility] [place]: Dr. Louann Zhu DO [address], [address] [place] [address] P: Exchange: [phone] * Attachments The following attachments cannot be sent through Care Everywhere. * General Anesthesia (Discharge Care) (Taiwanese) * Hydrocodone/Acetaminophen (By mouth) (Taiwanese) * Amoxicillin/Clavulanate Potassium (By mouth) (Taiwanese) documented in this encounter Medications at Time [...] worse this week. Alelrgy blood testing: Grass, [place] and Pecan Last seen: 10/22/2019 Allergic rhinitis, unspecified seasonality, unspecified trigger (Primary) Assessment & Plan: Nasal saline spray (Simply saline, Little Remedies, Grafton, Blanchard) 2 second sprays or 2 squeezes into [...] trigger (Primary) Assessment & Plan: Referral to Project Reservoir Engineer - Dr. Fuchs Orders: - Ambulatory referral [...] will return, need for further surgery. Louann hZu DO documented in this encounter Miscellaneous Notes [...] that you and your doctor have chosen [facility] for your surgery. We hope that [...] mg tablet ?? Use no make-up, nail filipino, lotions, oils or powders on your skin. [...] 11:38 AM CDT Narrative PATHOLOGY [facility] ([place]) - 01/07/2020 12:33 PM CDT EPIC results best viewed via link to PDF [facility] Department of Pathology [address] [place] [address] Final Report Patient Name: ??SHERI BARLOWKelly Address: ??[address] [place] [address], ??[place], [place] [address] Gender: ??M : ??1995 (Age: 24) Service: ??[facility]gery [facility] Hospital #: ??[id number] Patient Type: ??[facility] Accession # ?[id number] Taken: ??01/02/2020 Received: ??01/02/2020 Accessioned: ??01/02/2020 Reported: [...] determined by the Surgical Pathology Department at [facility] as part of an ongoing customer quality specialist program and in compliance with federally mandated [...] characteristics determined by the Surgical Pathology Department [facility]. ??It has not been cleared or approved by the U. S. Food and Drug Administration. Louann Zhu DO LAB PATHOLOGY ORDERABLES Fin al Result PATHOLOGY [facility] ([place]) 1 [place], [place] [address] * COVID-19 Coronavirus RNA Nasopharyngeal (12/31/2019 10:18 AM CDT) COVID-19 RNA Not Detected YUKO SALCEDO ([place]) Comment: Interpretive Data Testing performed at [facility] Molecular Infectious Disease Laboratory. The 2019Novel Coronavirus [...] last revised on 2019. Testing performed by: [facility], [address] [facility], [place]., [address] Nasopharyngeal 12/31/2019 10 :18 AM CDT 12/31/2019 12:52 PM CDT Narrative SENAIT SALCEDO ([place]) - 12/31/2019 8:49 PM CDT Is the patient experiencing any symptoms consistent with COVID (eg. Fever, cough, shortness of breath)?->No What is the reason for testing?->Screening prior to scheduled (>12 hr) surgery or procedure us Louann Zhu DO LAB MICROBIOLOGY - GENERAL O RDERABLES Final Result SENAIT SALCEDO ([place]) 1 [facility] Department [place] [address] documented in this encounter Visit Diagnoses Diagnosis [...] 01/02/2020 documented in this encounter Care Teams Gerontology Aide Relationship Specialty Start Date End Date Charles Vogel MD [address] [place] [address] PCP - General 05/21/19 09/10/21 documented as of this encounter
--- OUTSIDE RECORDS SUMMARY | 2024-05-13 11:38 | XMS_ITS | Encounter Summary ---
Author Organization [facility] Address [address] [place] [address] Care Team Providers Care Patient Relations Liaison Name Role Phone Charles Vogel MD Primary Care Provider +1- [phone] Reason for Visit * Reason Comments Post-op Encounter Details Date Type Department Care Team (Late st Contact Info) Description 01/22/2020 11:50 AM CDT Office Visit [facility] ENT Specialists - [facility] [address] [place] [id number] Louann Zhu, [address] 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 ENT Progress Note Reason for Follow up: s/p Septoplasty Requesting Provider: No att. providers found SUBJECTIVE: Patient was following up for s/p Septoplasty. HPI: Chuck reported complaint being improved, some congestion remains, sense of smell not back to normal,seeing Planning Engineer for skin testing tomorrow. Headaches have improved. Last seen: 01/10/2020 Deviated nasal septum (Primary) Assessment & Plan: Continue Nasal saline 2-3 times per day Wear a Mask all the time at work Avoid nose blowing until seen in the office next week Have an appointment to see the Planning Engineer 01/2201/02/2020: PROCEDURE PERFORMED: Septoplasty Submucosal Reduction of [...] gently Restart Allergy medications once cleared by Planning Engineer PROCEDURE PERFORMED: Septoplasty Submucosal Reduction of Inferior Turbinates bilaterally Allergic rhinitis, unspecified seasonality, unspecified trigger Assessment & Plan: Continue nasal saline 2-3 times per day May blow nose gently Restart Allergy medications once cleared by Planning Engineer Louann Zhu DO documented in this encounter Miscellaneous Notes * Assessment & Plan Note - Louann Zhu DO - 01/22/2020 12:56 PM CDT Associated Problem(s): Allergic rhinitis Continue nasal saline 2-3 times per day May blow nose gently Restart Allergy medications once cleared by Planning Engineer * Assessment & Plan Note - Louann Zhu DO - 01/22/2020 12:16 PM CDT Associated Problem(s): Deviated nasal septum Continue nasal saline 2-3 times per day May blow nose gently Restart Allergy medications once cleared by Planning Engineer PROCEDURE PERFORMED: Septoplasty Submucosal Reduction of Inferior Turbinates bilaterally documented in this encounter Plan of Treatment Not on file documented as of this encounter Visit Diagnoses Diagnosis Deviated nasal septum- Primary Allergic rhinitis, unspecified seasonality, unspecified trigger documented in this encounter Care Teams Patient Relations Liaison Relationship Specialty Start Date End Date Charles Vogel MD [address] [place] [address] PCP - General 05/21/19 09/10/21 documented as of this encounter
--- OUTSIDE RECORDS SUMMARY | 2024-05-13 11:38 | XMS_ITS | Encounter Summary ---
Author Organization [facility] Address [address] [place] [address] Care Team Providers Care On Car Supervisor Name Role Phone Charles Vogel MD Primary Care Provider +1- [phone] Encounter Details Date Type Department Care Team (Late st Contact Info) Description 01/03/2020 Telephone [facility] ENT Specialists - [facility] [address] [place] [address] Lacy Cordero MA Social History Tobacco Use Types Packs/Day Years Used Date Smoking Tobacco: Never Smokeless Tobacco: Current Snuff Alcohol Use Standard Drinks/Week Comments Yes 0 (1 standard drink = 0.6 oz pur e alcohol) Sex and Gender Information Value Date Recorded Sex Assigned at Not on file 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
--- OUTSIDE RECORDS SUMMARY | 2024-05-13 11:38 | XMS_ITS | Encounter Summary ---
Author Organization [facility] Healthcare Address [address] [place] [address] Care Team Providers Care Asphalt Patcher Name Role Phone Charles Vogel MD Primary Care Provider +1- [phone] Encounter Details Date Type Department Care Team (Late st Contact Info) Description 12/31/2019 10:20 AM CDT [address] [address] Louann Zhu, DO [address] [place] [address] [place] [address] Preoperative clearance Discharge Disposition: Discharge to home or self care Social History Tobacco Use Types Packs/Day Years Used Date Smoking Tobacco: Never Smokeless Tobacco: Current Snuff Alcohol Use Standard Drinks/Week Comments Yes 0 (1 standard drink = 0.6 oz pur e alcohol) Sex and Gender Information Value Date Recorded Sex Assigned at Not on file 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 The 2019-Novel [...] by: [facility], [address] [place] [address] Nasopharyngeal 12/31/2019 10 :18 AM CDT 12/31/2019 12:52 PM CDT Narrative SENAIT SALCEDO ([place]) - 12/31/2019 8:49 PM CDT Is the patient experiencing any symptoms consistent with COVID (eg. Fever, cough, shortness of breath)?->No What is the reason for testing?->Screening prior to scheduled (>12 hr) surgery or procedure Louann Zhu DO LAB MICROBIOLOGY - GENERAL O RDERABLES Final Result SENAIT SALCEDO ([place]) 1 [facility] Department [place] [address] documented in this encounter Visit Diagnoses Diagnosis Preoperative clearance Unspecified pre-operative examination documented in this encounter Care Teams Asphalt Patcher Relationship Specialty Start Date End Date Charles Vogel MD [address] [place] [address] PCP - General 05/21/19 09/10/21 documented as of this encounter
--- OUTSIDE RECORDS SUMMARY | 2024-05-13 11:38 | XMS_ITS | Encounter Summary ---
Author Organization [facility] Healthcare Address [address] [place] [address] Care Team Providers Care Inventory Planner Name Role Phone Charles Vogel MD Primary Care Provider +1- [phone] Encounter Details Date Type Department Care Team (Latest Contact Info) Description 01/02/2020 9:10 AM CDT - 01/02/2020 2:27 PM CDT Hospital Encounter [facility] Operating Room 1 [place] [address] Louann Zhu, DO [address] [place] [address] [address] G[address] [address] Preoperative clearance (Primary Dx); Deviated nasal septum; [...] on file 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 ?? Pain: You [...] nose more comfortable after surgery. These sprays (Quitman, Hudspeth, Simple Saline) are mrro-cwf-nhhxsmg medications and can be purchased in any [...] using Afrin Who to Call After Surgery: [facility] [place]: Dr. Louann Zhu, [address], [address] [place] [address] P: Exchange: [phone] * Attachments The following attachments cannot be sent through Care Everywhere. * General Anesthesia (Discharge Care) (Serbian) * Hydrocodone/Acetaminophen (By mouth) (Serbian) * Amoxicillin/Clavulanate Potassium (By mouth) (Serbian) documented in this encounter Medications at Time [...] worse this week. Alelrgy blood testing: Grass, [place] and Pecan Last seen: 10/22/2019 Allergic rhinitis, unspecified seasonality, unspecified trigger (Primary) Assessment & Plan: Nasal saline spray (Simply saline, Little Remedies, Hudspeth, Quitman) 2 second sprays or 2 squeezes into [...] trigger (Primary) Assessment & Plan: Referral to Clinical Research Technician - Dr. Fuchs Orders: - Ambulatory referral [...] #15 blade was used to make a [place] incision on the left anterior nasal septum. [...] that you and your doctor have chosen [facility] for your surgery. We hope that the [...] mg tablet ?? Use no make-up, nail guamanian, lotions, oils or powders on your skin. [...] contents) 01/02/2020 11:38 AM CDT Narrative PATHOLOGY [facility] ([place]) - 01/07/2020 12:33 PM CDT EPIC results best viewed via link to PDF [facility] Department of Pathology [address] [place] [address] Final Report Patient Name: ??SHERI BARLOWKelly Address: ??[address] [place] [address], ??[place], [place] [address] Gender: ??M : ??1995 (Age: 24) Service: ??Surgery Location: ??[facility] Hospital #: ??[id number] Patient Type: ??[facility] Accession # ?[id number] Taken: ??01/02/2020 Received: ??01/02/2020 Accessioned: ??01/02/2020 Reported: [...] determined by the Surgical Pathology Department at [facility] as part of an ongoing supplier quality engineering manager program and in compliance with federally mandated [...] characteristics determined by the Surgical Pathology Department [facility]. ??It has not been cleared or approved by the U. S. Food and Drug Administration. us Louann Zhu DO LAB PATHOLOGY ORDERABLES Fin al Result PATHOLOGY [facility] ([place]) 1 [place] [address] * COVID-19 Coronavirus RNA Nasopharyngeal (12/31/2019 10:18 AM CDT) COVID-19 RNA Not Detected YUKO ER DENISSE ([place]) Comment: Interpretive Data Testing performed at [facility] Molecular Infectious Disease Laboratory. The 2019-Novel [...] last revised on 2019. Testing performed by: [facility], [address] [place]., [address] Nasopharyngeal 12/31/2019 10 :18 AM CDT 12/31/2019 [...] Result SENAIT SALCEDO ([place]) 1 [facility] Department [place] [address] documented in this encounter Visit [...] 01/02/2020 documented in this encounter Care Teams Inventory Planner Relationship Specialty Start Date End Date Charles Vogel MD [address] [place] [address] PCP - General 05/21/19 09/10/21 documented as of this encounter
--- OUTSIDE RECORDS SUMMARY | 2024-05-13 11:39 | XMS_ITS | Encounter Summary ---
Author Organization [facility] Address [address] [place] [address] Care Team Providers Care Weigh Box Tender Name Role Phone Charles Vogel MD Primary Care Provider +1- [phone] Reason for Referral * Diagnostic Imaging (Routine) - Closed Specialty Diagnoses / Procedures Referred By Contac t Referred To Contact Radiology Diagnoses Allergic rhinitis, unspecified seasonality, unspecified trigger Procedures CT Sinus Stealth WO Contrast Earline Zhu DO Phone: tel: fax: [address] [address] Referral ID Status Reason Start Date Expiration Date Visits Re quested Visits Authorized [id number] Closed 10/22/2019 04/21/2020 1 1 Reason for Visit * Diagnostic Imaging (Routine) - Closed Specialty Diagnoses / Procedures Referred By Contac t Referred To Contact Radiology Diagnoses Allergic rhinitis, unspecified seasonality, unspecified trigger Procedures CT Sinus Stealth WO Contrast Earline Zhu DO Phone: tel: fax: [address] [address] Referral ID Status Reason Start Date Expiration Date Visits Re quested Visits Authorized [id number] Closed 10/22/2019 04/21/2020 1 1 Encounter Details Date Type Department Care Team (Latest Contact Info) Description 10/31/2019 5:00 PM CDT - 10/31/2019 11:59 PM CDT Hospital Encounter [facility] Imaging Center [address] [place] [address] Earline Zhu, [address]AV[address] [place] [address] Allergic rhinitis, unspecified seasonality, unspecified trigger Discharge Disposition: Discharge to home or self care Social History Tobacco Use Types Packs/Day Years Used Date Smoking Tobacco: Never Smokeless Tobacco: Current Alcohol Use Standard Drinks/Week Comments Yes 0 (1 standard drink = 0.6 oz pur e alcohol) Sex and Gender Information Value Date Recorded Sex Assigned at Not on file 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 Ordering Phys: EARLINE ZHU Age: 24 ?Date of : 1995 ? Accession Number: [id number] Date of Service: 10/31/2019 ??Gender: M EXAM [...] Procedure Note Edward Narayan MD - 11/02/2019 [facility] Imaging Result Name: SHERI BARLOW Ordering Phys: EARLINE ZHU Age: 24 Date of : 1995 Accession Number: [id number] Date of Service: 10/31/2019 Gender: M EXAM [...] by Edward Narayan MF: GENESIS Report ID: [id number] Reading Location: [id number] Earline Zhu DO IMG CT PROCEDURES Final Resu lt documented in this encounter Visit Diagnoses Diagnosis Allergic rhinitis, unspecified seasonality, unspecified trigger documented in this encounter Care Teams Weigh Box Tender Relationship Specialty Start Date End Date Charles Vogel MD [address] [place] [address] PCP - General 05/21/19 09/10/21 documented as of this encounter
--- OUTSIDE RECORDS SUMMARY | 2024-05-13 11:39 | XMS_ITS | Encounter Summary ---
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
--- OUTSIDE RECORDS SUMMARY | 2024-05-13 11:39 | XMS_ITS | Encounter Summary ---
Author Organization [facility] Address [address] [place] [address] Care Team Providers Care Curriculum Facilitator Name Role Phone Charles Vogel MD Primary Care Provider +1- [phone] Reason for Referral * Diagnostic Imaging (Routine) - Closed Specialty Diagnoses / Procedures Referred By Contac t Referred To Contact Radiology Diagnoses Unspecified injury of muscle and tendon of unspecified wall of thorax, initial encounter Procedures MRI Thoracic Spine WO Contrast Andrae Frausto MD [address] [place] [address] Phone: tel: fax: Referral ID Status Reason Start Date Expiration Date Visits Re quested Visits Authorized [id number] Closed 05/17/2019 11/25/2020 1 1 FARMER Reason for Visit * Diagnostic Imaging (Routine) - Closed Specialty Diagnoses / Procedures Referred By Contac t Referred To Contact Radiology Diagnoses Unspecified injury of muscle and tendon of unspecified wall of thorax, initial encounter Procedures MRI Thoracic Spine WO Contrast Andrae Frausto MD [address] [place] [address] Phone: tel: fax: Referral ID Status Reason Start Date Expiration Date Visits Re quested Visits Authorized [id number] Closed 05/17/2019 11/25/2020 1 1 Encounter Details Date Type Department Care Team (Late st Contact Info) Description 05/21/2019 1:48 PM RICE FARMER - 05/21/2019 11:59 PM RICE FARMER Hospital Encounter [facility] [address] [place] [address] Andrae Frausto MD [address] [place] [address] Unspecified injury of muscle and tendon of unspecified wall of thorax, initial encounter Discharge Disposition: Discharge to home or self care Social History Tobacco Use Types Packs/Day Years Used Date Smoking Tobacco: Never Assessed Sex and Gender Information Value Date Recorded Sex Assigned at Not on file 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 Accession Number: [id number] Date of Service: 05/21/2019 ??Gender: M EXAM [...] PM T: ??05/21/2019 5:27 PM Report ID: [id number] Reading Location: ??[id number] Procedure Note Bony Marcano DO - 05/21/2019 [facility] Imaging Result Name: CHUCK BARLOW Ordering Phys: ANDRAE FRAUSTO Age: 24 Date of : 1995 Accession Number: [id number] Date of Service: 05/21/2019 Gender: M EXAM [...] by Bony Marcano D.O. : Report ID: [id number] Reading Location: [place] [address] Andrae Frausto MD IMG MRI PROCEDURES Final R esult documented in this encounter Visit Diagnoses Diagnosis Unspecified injury of muscle and tendon of unspecified wall of thorax, initial encounter documented in this encounter Care Teams Curriculum Facilitator Relationship Specialty Start Date End Date Charles Vogel MD [address] [place] [address] PCP - General 05/21/19 09/10/21 documented as of this encounter
--- OUTSIDE RECORDS SUMMARY | 2024-05-13 11:39 | XMS_ITS | Encounter Summary ---
Author Organization [facility] Address [address] [place] [address] Care Team Providers Care Showroom Manager Name Role Phone Charles Vogel MD Primary Care Provider +1- [phone] Reason for Visit * Reason Comments Follow-up had a sinus infectio n--antibiotic. Encounter Details Date Type Department Care Team (Late st Contact Info) Description 12/13/2019 1:00 PM CDT Office Visit [facility] ENT Specialists - [facility] [address] [facility] [address] [place] [address] Louann Zhu, 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 Referral to Certified Phlebotomy Technician - Dr. Fuchs documented in this encounter [...] worse this week. Alelrgy blood testing: Grass, [place] and Pecan Last seen: 10/22/2019 Allergic rhinitis, unspecified seasonality, unspecified trigger (Primary) Assessment & Plan: Nasal saline spray (Simply saline, Little Remedies, [place], [place]) 2 second sprays or 2 squeezes into [...] trigger (Primary) Assessment & Plan: Referral to Certified Phlebotomy Technician - Dr. Fuchs Orders: - Ambulatory [...] CDT Associated Problem(s): Allergic rhinitis Referral to Certified Phlebotomy Technician - Dr. Fuchs * Assessment & Plan [...] turbinates documented in this encounter Care Teams Showroom Manager Relationship Specialty Start Date End Date Charles Vogel MD [address] [place] [address] PCP - General 05/21/19 09/10/21 documented as of this encounter
--- OUTSIDE RECORDS SUMMARY | 2024-05-13 11:39 | XMS_ITS | Encounter Summary ---
Author Organization [facility] Medical Group Address [address] [place] [address] Care Team Providers Care Oil Spreader Operator Name Role Phone Charles Vogel MD Primary Care Provider +1- [phone] Encounter Details Date Type Department Care Team (Late st Contact Info) Description 10/24/2019 Telephone [facility] Medical [facility] ENT Specialists - [facility] [address] [place] [address] Lacy Cordero MA Social History Tobacco Use Types Packs/Day Years Used Date Smoking Tobacco: Never Smokeless Tobacco: Current Alcohol Use Standard Drinks/Week Comments Yes 0 (1 standard drink = 0.6 oz pur e alcohol) Sex and Gender Information Value Date Recorded Sex Assigned at Not on file 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
--- OUTSIDE RECORDS SUMMARY | 2024-05-13 11:39 | XMS_ITS | Encounter Summary ---
Author Organization [facility] Healthcare Address [address] [place] [address] Care Team Providers Care Insurance Producer Name Role Phone Charles Vogel MD Primary Care Provider +1- [phone] Reason for Visit * Reason Comments Hypertension Encounter Details Date Type Department Care Team (Late st Contact Info) Description 06/01/2019 10:36 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 WATCHER - 06/01/2019 11:44 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 WATCHER Emergency [facility] Emergency Department [address] [place] [address] Martin Perla MD [address] [place] [address] Hypertension, unspecified type (Primary Dx) Discharge Disposition: Discharge to home or self care Social History Tobacco Use Types Packs/Day Years Used Date Smoking Tobacco: Never Assessed Sex and Gender Information Value Date Recorded Sex Assigned at Not on file 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:34 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 Gender Identity Not on file Sexual Orientation Not on file documented as of this encounter Last Filed Vital Signs Vital Sign Reading Time Taken Comments Blood Pressure 133/92 06/01/2019 11:30 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 WATCHER Pulse 90 06/01/2019 11:30 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 WATCHER Temperature 36.7 ??C (98 ??F) 06/01/2019 10:38 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 WATCHER Respiratory Rate 23 06/01/2019 11:30 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 WATCHER Oxygen Saturation 96% 06/01/2019 11:30 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 WATCHER Inhaled Oxygen Concentration - - Weight - - Height - - Body Mass Index - - documented in this encounter Discharge Diagnoses Diagnosis Essential (primary) hypertension - ESSENTIAL (PRIMARY) HYPERTENSION Unspecified essential hypertension Other m[facility]p (current) drug therapy - OTHER ASSISTED (CURRENT) DRUG THERAPY documented in this encounter Discharge Instructions * Attachments The following attachments cannot be sent through Care Everywhere. * Hypertension, Established (Gambian) documented in this encounter Medications at Time [...] normal. Psychiatric: Thought Content: Thought content normal. [facility] ED Course as of Jun 01 2334 Time: 06/01 2329 Comment: Blood pressure 133/92, will discharge patient with him to follow up with primary on Tuesday By: Martin Perla MD Hypertension, unspecified type Martin Perla MD 06/01/192334 OGRAPH WATCHER * Adama Arroyo RN - 06/01/2019 10:36 PM CST Pt arrives with C/O hypertension. Pt states my blood pressure has been through the roof. It was 160/115 earlier. Pt started blood pressure medicine yesterday from PCP. Pt denies headache, blurry vision. OGRAPH WATCHER documented in this encounter Plan of Treatment [...] 12/28/2019 added in this encounter Care Teams Insurance Producer Relationship Specialty Start Date End Date Charles Vogel MD [address] [place] [address] PCP - General 05/21/19 09/10/21 documented as of this encounter
--- OUTSIDE RECORDS SUMMARY | 2024-05-13 11:39 | XMS_ITS | Encounter Summary ---
Author Organization [facility] Address [address] [place] [address] Care Team Providers Care Door To Door Salesperson Name Role Phone Charles Vogel MD Primary Care Provider +1- [phone] Encounter Details Date Type Department Care Team (Late st Contact Info) Description 11/02/2019 Telephone [facility] ENT Specialists - [facility] [address] [place] [address] Lacy Cordero MA Social History Tobacco Use Types Packs/Day Years Used Date Smoking Tobacco: Never Smokeless Tobacco: Current Alcohol Use Standard Drinks/Week Comments Yes 0 (1 standard drink = 0.6 oz pur e alcohol) Sex and Gender Information Value Date Recorded Sex Assigned at Not on file 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
--- OUTSIDE RECORDS SUMMARY | 2024-05-13 11:39 | XMS_ITS | Encounter Summary ---
Author Organization [facility] Healthcare Address [address] [place] [address] Care Team Providers Care Orthopedic Mechanic Name Role Phone Charles Vogel MD Primary Care Provider +1- [phone] Encounter Details Date Type Department Care Team (Late st Contact Info) Description 10/22/2019 12:00 PM CDT Lab [address] Louann Zhu, [address] [address] Allergic rhinitis, unspecified seasonality, unspecified trigger Discharge Disposition: Discharge to home or self care Social History Tobacco Use Types Packs/Day Years Used Date Smoking Tobacco: Never Smokeless Tobacco: Current Alcohol Use Standard Drinks/Week Comments Yes 0 (1 standard drink = 0.6 oz pur e alcohol) Sex and Gender Information Value Date Recorded Sex Assigned at Not on file 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 Testing performed by: [place]., [address] Blood specimen (specimen) 10/22/2019 12:05 PM CDT 10/22/2019 5:01 PM CDT Louann Zhu DO LAB BLOOD ORDERABLES Final R esult [facility] ([place]) [address] [facility] [place] [address] * (ABNORMAL) Expanded respiratory allergy profile (10/22/2019 12:05 PM CDT) Alternaria tenius IgE <0.10 0.00 - 0.34 kUnits/L [facility] ([place]) Comment:Testing performed by : [place]., [address] Julian white IgE <0.10 0.00 - 0.34 kUnits/L [facility] ([place]) Comment:Testing performed by : [facility], [place]., [address] Aspergillus fumigatus IgE <0.10 0.00 - 0.34 kUnits/L [facility] ([place]) Comment:Testing performed by : [facility], [place]., [address] Bermuda grass IgE 1.13(H) 0.00 - 0.34 kUnits/L [facility] ([place]) Comment:Testing performed by : [facility], [place]., [address] Cat dander IgE <0.10 0.00 - 0.34 kUnits/L [facility] ([place]) Comment:Testing performed by : [facility], [place]., [address] Cladosporium herbarum IgE <0.10 0.00 - 0.34 kUnits/L [facility] ([place]) Comment:Testing performed by : [facility], [place]., [address] Cockroach IgE <0.10 0.00 - 0.34 kUnits/L [facility] ([place]) Comment:Testing performed by : [facility], [place]., [address] Monte[place] IgE <0.10 0.00 - 0.34 kUnits/L [facility] ([place]) Comment:Testing performed by : [facility], [place]., [address] Dermatophyton farinae IgE <0.10 0.00 - 0.34 kUnits/L [facility] ([place]) Comment:Testing performed by : [place]., [address] Dermatophyton pteronyssinus IgE <0.10 0.00 - 0.34 kUnits/L [facility] ([place]) Comment:Testing performed by : [facility], [place]., [address] Dog dander IgE <0.10 0.00 - 0.34 kUnits/L [facility] ([place]) Comment:Testing performed by : [facility], [place]., [address] Elm IgE <0.10 0.00 - 0.34 kUnits/L [facility] ([place]) Comment:Testing performed by : [facility], [place]., [address] Maple/box elder IgE <0.10 0.00 - 0.34 kUnits/L [facility] ([place]) Comment:Testing performed by : [facility], [place]., [address] Mountain juniper IgE 0.12 0.00 - 0.34 kUnits/L [facility] ([place]) Comment:Testing performed by : [facility], [place]., [address] [place] IgE <0.10 0.00 - 0.34 kUnits/L [facility] ([place]) Comment:Testing performed by : [facility], [place]., [address] Cum[place] IgE 22.10(H) 0.00 - 0.34 kUnits/L [facility] ([place]) Comment:Testing performed by : [facility], [place]., [address] Pecan (tree) IgE 0.37(H) 0.00 - 0.34 kUnits/L [facility] ([place]) Comment:Testing performed by : [facility], [place]., [address] Penicillium chrysogenum IgE <0.10 0.00 - 0.34 kUnits/L [facility] ([place]) Comment:Testing performed by : [facility], [place]., [address] Ragweed common IgE <0.10 0.00 - 0.34 kUnits/L [facility] ([place]) Comment:Testing performed by : [facility], [place]., [address] [place]helder rough IgE <0.10 0.00 - 0.34 kUnits/L [facility] ([place]) Comment:Testing performed by : [facility], [place]., [address] Pigweed rough IgE <0.10 0.00 - 0.34 kUnits/L [facility] ([place]) Comment:Testing performed by : [facility], [place]., [address] Thistle welsh IgE 0.10 0.00 - 0.34 kUnits/L [facility] ([place]) Comment:Testing performed by : [facility], [place]., [address] Kinsman IgE <0.10 0.00 - 0.34 kUnits/L [facility] ([place]) Comment:Testing performed by : [facility], [place]., [address] Tomasz grass IgE 0.11 0.00 - 0.34 kUnits/L [facility] ([place]) Comment:Testing performed by : [facility], [place]., [address] [place] (tree) IgE <0.10 0.00 - 0.34 kUnits/L [facility] ([place]) Comment:Testing performed by : [facility], [place]., [address] IgE 146.2(H) 1.0 - 100.0 IUnits/mL [facility] ([place]) Comment:Testing performed by : [place]., [address] Blood specimen (specimen) 10/22/2019 12:05 PM CDT 10/22/2019 5:01 PM CDT Louann Zhu DO LAB BLOOD ORDERABLES Final R esult [facility] ([place]) [address] [facility] Department [place] [address] documented in this encounter Visit Diagnoses Diagnosis Allergic rhinitis, unspecified seasonality, unspecified trigger documented in this encounter Care Teams Orthopedic Mechanic Relationship Specialty Start Date End Date Charles Vogel MD [address] [place] [address] PCP - General 05/21/19 09/10/21 documented as of this encounter
--- OUTSIDE RECORDS SUMMARY | 2024-05-13 11:39 | XMS_ITS | Encounter Summary ---
Author Organization [facility] Address [address] [place] [address] Care Team Providers Care Bead Wrapper Name Role Phone Charles Vogel MD Primary Care Provider +1- [phone] Reason for Referral * Diagnostic Imaging (Routine) - Closed Specialty Diagnoses / Procedures Referred By Contac t Referred To Contact Radiology Diagnoses Allergic rhinitis, unspecified seasonality, unspecified trigger Procedures CT Sinus Stealth WO Contrast Louann Zhu DO Phone: tel: fax: [facility] [address] [place] [address] Referral ID Status Reason Start Date Expiration Date Visits Re quested Visits Authorized [id number] Closed 10/22/2019 04/21/2020 1 1 Reason for Visit * Reason Comments Sinusitis allergies Encounter Details Date Type Department Care Team (Late st Contact Info) Description 10/22/2019 11:00 AM CDT Office Visit [facility] ENT Specialists - [facility] [address] [place] [address] Louann Zhu DO [address] [place] [address] BHAVIK Ramirez [address] [place] [address] Allergic rhinitis, unspecified seasonality, unspecified trigger (Primary Dx) Social History Tobacco Use Types Packs/Day Years Used Date Smoking Tobacco: Never Smokeless Tobacco: Current Alcohol Use Standard Drinks/Week Comments Yes 0 (1 standard drink = 0.6 oz pur e alcohol) Sex and Gender Information Value Date Recorded Sex Assigned at Not on file 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 Ordering Phys: LOUANN ZHU Age: 24 ?Date of : 1995 ? Accession Number: [id number] Date of Service: 10/31/2019 ??Gender: M EXAM [...] Note Edward Narayan MD - 11/02/2019 [facility] Imaging Result Name: SHERI BARLOW Ordering Phys: LOAUNN ZHU Age: 24 Date of : 1995 Accession Number: [id number] Date of Service: 10/31/2019 Gender: M EXAM [...] by Edward Narayan MF: GENESIS Report ID: [id number] Reading Location: [place] [address] Louann Zhu DO IMG CT PROCEDURES Final Resu lt * (ABNORMAL) Expanded respiratory allergy profile (10/22/2019 12:05 PM CDT) Alternaria tenius IgE <0.10 0.00 - 0.34 kUnits/L [facility] ([place]) Comment:Testing performed by : [facility], [place]., [address] Julian white IgE <0.10 0.00 - 0.34 kUnits/L [facility] ([place]) Comment:Testing performed by : [facility], [place]., [address] Aspergillus fumigatus IgE <0.10 0.00 - 0.34 kUnits/L [facility] ([place]) Comment:Testing performed by : [facility], [place]., [address] Berm[place] grass IgE 1.13(H) 0.00 - 0.34 kUnits/L [facility] ([place]) Comment:Testing performed by : [facility], [place]., [address] Cat dander IgE <0.10 0.00 - 0.34 kUnits/L [facility] ([place]) Comment:Testing performed by : [facility], [place]., [address] Cladosporium herbarum IgE <0.10 0.00 - 0.34 kUnits/L [facility] ([place]) Comment:Testing performed by : [facility], [place]., [address] Cockroach IgE <0.10 0.00 - 0.34 kUnits/L [facility] ([place]) Comment:Testing performed by : [facility], [place]., [address] [place] IgE <0.10 0.00 - 0.34 kUnits/L [facility] ([place]) Comment:Testing performed by : [facility], [place]., [address] Dermatophyton farinae IgE <0.10 0.00 - 0.34 kUnits/L [facility] ([place]) Comment:Testing performed by : [facility], [place]., [address] Dermatophyton pteronyssinus IgE <0.10 0.00 - 0.34 kUnits/L [facility] ([place]) Comment:Testing performed by : [facility], [place]., [address] Dog dander IgE <0.10 0.00 - 0.34 kUnits/L [facility] ([place]) Comment:Testing performed by : [facility], [facility], [address] Elm IgE <0.10 0.00 - 0.34 kUnits/L [facility] ([place]) Comment:Testing performed by : [facility], [place]., [address] Maple/box elder IgE <0.10 0.00 - 0.34 kUnits/L [facility] ([place]) Comment:Testing performed by : [facility], [place]., [address] Mountain juniper IgE 0.12 0.00 - 0.34 kUnits/L [facility] ([place]) Comment:Testing performed by : [facility], [place]., [address] [place] IgE <0.10 0.00 - 0.34 kUnits/L [facility] ([place]) Comment:Testing performed by : [facility], [place]., [address] Henley IgE 22.10(H) 0.00 - 0.34 kUnits/L [facility] ([place]) Comment:Testing performed by : [facility], [place]., [address] Pecan (tree) IgE 0.37(H) 0.00 - 0.34 kUnits/L [facility] ([place]) Comment:Testing performed by : [facility], [place]., [address] Penicillium chrysogenum IgE <0.10 0.00 - 0.34 kUnits/L [facility] ([place]) Comment:Testing performed by : [facility], [place]., [address] Ragweed common IgE <0.10 0.00 - 0.34 kUnits/L [facility] ([place]) Comment:Testing performed by : [facility], [place]., [address] [place]helder rough IgE <0.10 0.00 - 0.34 kUnits/L [facility] ([place]) Comment:Testing performed by : [facility], [place]., [address] Pigweed rough IgE <0.10 0.00 - 0.34 kUnits/L [facility] ([place]) Comment:Testing performed by : [facility], [address] Thistle kosovan IgE 0.10 0.00 - 0.34 kUnits/L [facility] ([place]) Comment:Testing performed by : [facility], [place]., [address] [place] IgE <0.10 0.00 - 0.34 kUnits/L [facility] ([place]) Comment:Testing performed by : [facility], [place]., [address] Tomasz grass IgE 0.11 0.00 - 0.34 kUnits/L [facility] ([place]) Comment:Testing performed by : [facility], [place]., [address] [place] (tree) IgE <0.10 0.00 - 0.34 kUnits/L [facility] ([place]) Comment:Testing performed by : [facility], [place]., [address] IgE 146.2(H) 1.0 - 100.0 IUnits/mL [facility] ([facility]) Comment:Testing performed by : [facility], [place]., [address] Blood specimen (specimen) 10/22/2019 12:05 PM CDT 10/22/2019 5:01 PM CDT Louann Zhu DO LAB BLOOD ORDERABLES Final R esult [facility] ([place]) [address] [facility] Department [place] [address] documented in this encounter Visit Diagnoses Diagnosis [...] 06/11/2020 added in this encounter Care Teams Bead Wrapper Relationship Specialty Start Date End Date Charles Vogel MD [address] [place] [address] PCP - General 05/21/19 09/10/21 documented as of this encounter
--- OUTSIDE RECORDS SUMMARY | 2024-05-13 11:41 | XMS_ITS | Encounter Summary ---
Author Organization [facility] Address [address] [place] [address] Care Team Providers Care Mail Forwarding System Markup Clerk Name Role Phone Pankaj Rosenberg MD Primary Care Provider [phone] Reason for Referral * Evaluate & Treat (Routine) - Closed Specialty Diagnoses / Procedures Referred By Horacio t Referred To Contact Surgery-General Diagnoses Partial obstruction of small intestine (HCC) S/P exploratory laparotomy Christiane Downing MD [address] [place] [address] [facility] [address] [facility], [place] [address] Referral ID Status Reason Start Date Expiration Date V isits Requested Visits Authorized [id number] Closed Discharge Follow-up 07/27/2022 07/27/2023 1 1 [...] Expiration Date Visits Re quested Visits Authorized [id number] 1 1 Encounter Details Date Type Department Care Team (Latest Contact Info) Description 07/25/2022 4:40 PM CDT - 07/28/2022 10:58 AM CDT Hospital Encounter [facility] 7N ACUTE [address] [place] [id number] Velia Gray MD [address] [place] [address] Nikita Chavez MD [address] [id number] Christiane Downing MD [address] [place] [address] Shelbi Vasques DO [address] OF [facility] INTERNAL MEDICINE [place], [place] [id number] Internal Medicine Discharge Disposition: Home or Self [...] and heating? Not hard at all 07/27/2022 [place] [facility] Occup[facility] ional [facility] - Occupational Stress [...] place to sleep or slept in a senior living (including now)? No 07/27/2022 Sex and Gender [...] from the original note were not included. [facility] INTERNAL MEDICINE DISCHARGE SUMMARY PATIENT: Sheri [...] been sent to his preferred pharmacy in [place], [place]. Note to PCP: Med changes w/rationale: 1. Miralax 17g BID and [id number] BID for constipation Abx: none Follow up imaging: none Follow up labs: none Follow-up appointments: Future Appointments July 10:00 AM Appointment with Carolyn Miles at [facility] ([phone]) [address] [facility], Second Level [facility] [address] Significant Diagnostic Studies: Labs this admission: CBC: [...] constipation. Report dictated by Uche Hensley MD (president & ceo). I, Sabra Tracy MD have personally reviewed [...] was drafted by Dr. Robin Lundberg MD. (resident hall director). I, Adriel Rosen MD have personally reviewed [...] Your Medications These medications were sent to [facility][id number] - [address] [facility] [address] [facility] [address] , [facility] [address] ?? lisinopril 10 MG tablet ?? polyethylene glycol 3350 17 GM/SCOOP powder ?? senna-docusate 8.6-50 MG tablet Discharge Instructions [facility] ACUTE CARE SURGERY PATIENT DISCHARGE INSTRUCTIONS [...] you in our outpatient clinic to discuss master dyer treatment of your recurrent small bowel obstructions. Call our office to schedule a follow-up appointment if one wasn't make for you prior to your discharge. The number is [phone]. Option 1 for General Surgery. Acute Care Surgery Clinic: [facility] Acute Care Surgery Clinic-[address] [place] [address] If you have questions or concerns: 1. Please call the general surgery office at [phone]. 2. You may also contact the Acute Care Surgery Nurse Practitioner, THEE Michelle at [phone]. Outside Business Hours Questions or Concerns 1. Please call [facility] Hospital Returning Officer at [phone] and have the General Surgery disposition clerk resident paged. Medications: You have been provided [...] Your Medications These medications were sent to [facility] #[id number] - [address] [facility] [address] [facility] [address], [facility] [address] ?? lisinopril 10 MG tablet ?? polyethylene [...] was not filled prior to discharge by [facility] Outpatient Pharmacy. Some patients experience nausea and/or vomiting from certain narcotics. If you get any of these side effects, call the office at the number listed above or call the main hospital ([phone]) and ask for the Acute Care Surgery Resident disposition clerk. A prescription for a different pain reliever [...] THEE Michelle Division of Acute Care Surgery [phone] Or you may have it emailed to: [email or web address] MyChart: All of your medical records, test results, inpatient notes, upcoming appointments and prescription refills can be accessed via [employer]. You may also message your treatment team for non urgent requests. If you have not signed up for [employer], ask your health care provider to send you the link. This is the best way to stay up to date on your healthcare. [email or web address] Signed: Gurinder Piña MD Internal Medicine Resident [facility] 07/28/2022 10:39 AM Associated attestation - Shelbi Vasques DO - 07/28/2022 4:09 PM CDT I have seen and examined the patient with the resident and I agree with the findings and plan of care as documented by the resident. Date of Service: 07/28/2022 Shelbi Vasques DO documented in this encounter Discharge Instructions * Discharge Instructions* Gurinder Alatorre MD - 07/27/2022 8:42 AM CDT [facility] ACUTE CARE SURGERY PATIENT DISCHARGE INSTRUCTIONS [...] you in our outpatient clinic to discuss master dyer treatment of your recurrent small bowel obstructions. Call our office to schedule a follow-up appointment if one wasn't make for you prior to your discharge. The number is [phone]. Option 1 for General Surgery. Acute Care Surgery Clinic: [facility] Acute Care Surgery Clinic-[address] [place] [address] If you have questions or concerns: 1. Please call the general surgery office at [phone]. 2. You may also contact the Acute Care Surgery Nurse Practitioner, THEE Michelle at [phone]. Outside Business Hours Questions or Concerns 1. Please call [facility] Returning Officer at [phone] and have the General Surgery disposition clerk resident paged. Medications: You have been provided [...] Your Medications These medications were sent to [facility] #[id number] - [address] [facility] [address] [facility] [address], [facility] [address] lisinopril 10 MG tablet polyethylene glycol 3350 17 GM/SCOOP powder senna-docusate 8.6-50 MG tablet General Your full recovery will take some time. This handout covers some common questions and concerns. Pain Control When you leave the hospital, you should have a prescription for pain medication. Have it filled at a pharmacy near your home if it was not filled prior to discharge by [facility] Outpatient Pharmacy. Some patients experience nausea and/or vomiting from certain narcotics. If you get any of these side effects, call the office at the number listed above or call the [facility] ([phone]) and ask for the Acute Care Surgery Resident disposition clerk. A prescription for a different pain reliever [...] please have it faxed to: [facility] Division of Acute Care Surgery [phone] Or you may have it emailed to: [email or web address] MyChart: All of your medical records, test results, inpatient notes, upcoming appointments and prescription refills can be accessed via [employer]. You may also message your treatment team for non urgent requests. If you have not signed up for [employer], ask your health care provider to send you the link. This is the best way to stay up to date on your healthcare. [email or web address] documented in this encounter Medications at Time [...] 8:08 AM Patient: Sheri Cannon (:1995) Room: [facility] Admit Date: 07/25/2022. Hospital Day: 3 CC: [...] input(s): CKTOTAL, CKMB, TROPONINI in the last 10788 hours. ABG:No results for input(s): PHART, NLS3EVY, PO2ART, TBJ7PQI, BASEEXCESS in the last 85698 hours. Invalid input(s): SO2ABG, FOHBABG UA:@EPUA@ Imaging: PROCEDURE: FL SMALL BOWEL SERIES, DATE/TIME OF EXAM: 07/27/2022 2:26 PM, LOCATION [facility] ?? IMPRESSION: ?? No evidence of small [...] Gurpreet Klein DO General Surgery Resident PGY-5 [facility] July 28, 2022 6:13 AM [...] Alatorre MD - 07/27/2022 6:40 PM CDT [facility] INTERNAL MEDICINE PROGRESS NOTE Patient: Sheri [...] constipation. Report dictated by Uche Hensley MD (president & ceo). ISabra MD have personally reviewed and interpreted [...] was drafted by Dr. Robin Lundberg MD. (resident hall director). I, Adriel Rosen MD have personally reviewed [...] physician. GURINDER PIÑA MD Internal Medicine Resident [facility] 07/27/2022 6:40 PM Associated attestation - Shelbi [...] None Requires Assistance With: None Preferred Pharmacy: [facility] - [address] [facility] [address] [address] [facility] [address] Advance Directive: No Advance Directive Information Given: Refused Information Would you like assistance on completing and executing or revising an Advance Directive?: No READMISSION RISK SCORE is 14 at 4:20 PM 07/27/2022. Met with patient and significant other Family Support (name and phone): Extended Emergency Contact Information Primary Emergency Contact: Lizeth Cannon Address: [address] [place] [address] Relation: Other Secondary Emergency Contact: Mary Montes De Oca Mobile Relation: Significant other Patient or retail representative requests care coordination reach out to family or caregiver listed above regarding discharge planning and at time of discharge? No Patient/Family provided with list of resources? Unknown Preferred Provider / High Quality Network List given?: Unknown Reason for provider choice: Unknown Equipment at Home: CPAP List DME pt. requires but does not have.: None Institutional Research Director Referral: No Will continue to follow. For any questions or needs please contact: Community Development Specialist Name/Phone number: Jayesh Banks RN [phone] * Cherelle Martinez - 07/27/2022 1:31 PM CDT Internal Medicine MS3 Progress Note 07/27/2022 1:32 PM Patient: Sheri Cannon (:1995) Room: [facility] Admit Date: 07/25/2022. Hospital Day: 2 CC: abdominal pain and nausea Subjective: Interval History: No acute events overnight. Patient has been passing gas and nausea is decreased. He denies any bowel movements overnight but did have bowel movements yesterday. He continues to have some soreness in mid-abdomen near scar from previous abdominal surgeries. Hospital Course: Sheri Cannon is a 27 [...] input(s): CKTOTAL, CKMB, TROPONINI in the last 77997 hours. ABG:No results for input(s): PHART, IYO1KEC, PO2ART, BXZ0IRX, BASEEXCESS in the last 26284 hours. Invalid input(s): SO2ABG, FOHBABG UA:@EPUA@ Imaging: [...] AM General Surgery PGY3 I respond to [facility] Chat when on-call and able. Associated attestation [...] Love MD - 07/25/2022 10:32 PM CDT [facility] INTERNAL MEDICINE HISTORY & PHYSICAL NOTE [...] complication, without long-term current use of insulin ([facility]) 06/16/2021 last A1C 5.6 1 [...] input(s): PH, PCO2, PO2 in the last 00866 hours. Invalid input(s): BICAR3 Amylase/Lipase: Invalid input(s): AMYL, LIPA Thyroid Studies: No results for input(s): TSH, T4 in the last 10047 hours. Cardiac Enzymes: No results for input(s): CKTOTAL, CKMB, TROPONINI in the last 05328 hours. Invalid input(s): CKMBINDEX Lipid Panel: No results for input(s): LDLCALC, HDL in the last 27663 hours. Microbiology: Reviewed in chart Imaging & Studies: Reviewed in chart The above assessment and plan will be discussed with the attending. This note is not final until attested by attending physician. Cedric Love MD Internal Medicine Resident [facility] 07/25/2022 10:32 PM Associated attestation - Nikita [...] complication, without long-term current use of insulin ([facility]) 06/16/2021 last A1C 5.6 1 [...] Concerns: None Chewing/Swallowing: None Estimated Needs: KCAL: 8885-6810 (25-30kcal/kg IBW) Protein (g): 78-94 (1-1.2g/kg IBW) [...] worsens, no orders at this time * Michelle Qureshi RN - 07/26/2022 9:53 PM CDT Patient requesting pain meds, digital media intern A paged * Michelle Qureshi RN - 07/26/2022 8:12 PM CDT Placed recliner in room for family, patient watching TV and on cell phone * Michelle Qureshi RN - 07/26/2022 7:40 PM CDT Assumed care of patient at 1915, patient resting at this time * Katlyn Mercedes RN - 07/26/2022 7:16 PM CDT Report to night clerk auditor RN * Katlyn Mercedes RN - 07/26/2022 [...] complication, without long-term current use of insulin ([facility]) 06/16/2021 last A1C 5.6 1 [...] DATE/TIME OF EXAM: 07/25/2022 11:19 PM, LOCATION [facility] INDICATION: R10.84: Abdominal pain, generalized [...] cholecystectomy. Report dictated by Adelita Pruitt MD (president & ceo). I, Oseas Nguyen MD, PhD have personally reviewed and interpreted this examination/study. > Interpreting Provider: Oseas Nguyen MD, PhD on 07/26/2022 12:[address] ABDOMEN PELVIS W CONTRAST Final Result PROCEDURE: CT ABDOMEN PELVIS W CONTRAST, DATE/TIME OF EXAM: 07/25/2022 7:30 PM, LOCATION [facility] INDICATION: R10.84: Abdominal pain, generalized [...] was drafted by Dr. Robin Lundberg MD. (resident hall director). I, Adriel Rosen MD have personally reviewed and interpreted this examination/study. > Interpreting Provider: Adriel Rosen MD on 07/25/2022 11:14 PM XR ABDOMEN KUB Final Result PROCEDURE: XR ABDOMEN KUB, DATE/TIME OF EXAM: 07/25/2022 4:27 PM, LOCATION [facility] INDICATION: R10.84: Abdominal pain, generalized [...] constipation. Report dictated by Uche Hensley MD (president & ceo). ISabra MD have personally reviewed and interpreted this examination/study. > Interpreting Provider: Sabra Trcay MD on 07/25/2022 11:16 PM No results [...] Orde r Schedule Ref to General Surgery [facility] Outpatient Referral Routine Partial obstruction of [...] PANEL STAT 07/25/2022 5:54 PM CDT PT-INR [facility] STAT 07/25/2022 4:57 PM CDT TYPE + [...] - 115 mg/dL 07/28/2022 8:31 AM CDT [facility] Specimen Type Cap Fingerstick 2022 8:31 AM CDT [facility] Blood BLOOD SPECIMEN / Unknown 07/28/2022 8:21 AM CDT 07/28/2022 8:31 AM CDT Shelbi Vasques DO LAB - POINT OF CARE ORDERABLES Performing Organization Address City/State/[facility] Co de Phone Number [address] [address], [facility] [phone] * (ABNORMAL) GLUCOSE - POINT OF CARE (07/28/2022 4:26 AM CDT) Glucose WB/POC 154(H) 70 - 115 mg/dL 07/28/2022 4:30 AM CDT [facility] Specimen Type Venous 07/28/2022 4:30 AM CDT [facility] Blood BLOOD SPECIMEN / Unknown 07/28/2022 4:26 AM CDT 07/28/2022 4:30 AM CDT Shelbi Vasques DO LAB - POINT OF CARE ORDERABLES Performing Organization Address City/[facility]/ZIP Co de Phone Number [facility] [address] [place] [address], [facility] [phone] * (ABNORMAL) BASIC METABOLIC PANEL (CALCIUM TOTAL) [...] 17 7 - 23 07/28/2022 3:39 AM [facility] Osmolality Calculated 300 270 - 300 mOsm/kg 07/28/2022 3:39 AM [facility] eGFR by CKD-EPI >90 >=90 mL/min/1.7 3 m2 07/28/2022 3:39 AM [facility] Blood BLOOD SPECIMEN / Unknown Lab Venipuncture / Unknown 07/28/2022 2:43 AM CDT 07/28/2022 3:09 AM CDT Velia Gray MD LAB - CHEMISTRY TRAY REYES [facility] [address] [place] [address], [facility] [phone] * (ABNORMAL) CBC W/O DIFFERENTIAL (07/28/2022 2:43 AM CDT) WBC 8.6 3.5 - 10.5 10? 3 /uL 07/28/2022 3:21 AM CDT [facility] RBC 4.83 4.30 - 5.70 10? [...] Gray MD LAB - HEMATOLOGY ZI CRAWFORD [address] [address], [place] [phone] * MAGNESIUM BLOOD (07/28/2022 2:43 AM CDT) Magnesium 2.2 1.6 - 2.6 mg/dL 07/28/2022 3:39 AM CDT [facility] Blood BLOOD SPECIMEN / Unknown Lab Venipuncture / Unknown 07/28/2022 2:43 AM CDT 07/28/2022 3:09 AM CDT Velia Gray MD LAB - CHEMISTRY TRAY REYES [address] [address], [place] [phone] * PHOSPHORUS BLOOD (07/28/2022 2:43 AM CDT) Phosphorus 4.2 2.8 - 5.1 mg/dL 07/28/2022 3:39 AM CDT [facility] Blood BLOOD SPECIMEN / Unknown Lab Venipuncture / Unknown 07/28/2022 2:43 AM CDT 07/28/2022 3:09 AM CDT Velia Gray MD LAB - CHEMISTRY TRAY RE[place] [address] [address], [place] [phone] * GLUCOSE - POINT OF CARE (07/27/2022 11:45 PM CDT) Glucose WB/POC 111 70 - 115 mg/dL 07/27/2022 11:58 PM CDT [facility] Specimen Type Venous 07/27/2022 11:58 PM CDT [facility] Blood BLOOD SPECIMEN / Unknown 07/27/2022 11:45 PM CDT 07/27/2022 11:58 PM CDT Shelbi Vasques DO LAB - POINT OF CARE ORDERABLES [address] [address], [place] [phone] * (ABNORMAL) GLUCOSE - POINT OF CARE (07/27/2022 8:06 PM CDT) Glucose WB/POC 122(H) 70 - 115 mg/dL 07/27/2022 8:11 PM CDT [facility] Specimen Type Venous 07/27/2022 8:11 PM CDT [facility] Blood BLOOD SPECIMEN / Unknown 07/27/2022 8:06 PM CDT 07/27/2022 8:11 PM CDT Christiane Downing MD LAB - POINT OF CARE ORDERABLES Performing Organization Address City/[facility]/ZIP Co de Phone Number [address] [address], [place] [phone] * GLUCOSE - POINT OF CARE (07/27/2022 5:24 PM CDT) Glucose WB/POC 105 70 - 115 mg/dL 07/27/2022 6:19 PM CDT [facility] Specimen Type Arterial 07/27/2022 6:19 PM CDT [facility] Blood BLOOD SPECIMEN / Unknown 07/27/2022 5:24 PM CDT 07/27/2022 6:19 PM CDT Christiane Downing MD LAB - POINT OF CARE ORDERABLES [address] [address], [place] [phone] * FL SMALL BOWEL SERIES (07/27/2022 2:25 PM CDT) Anatomical Region Laterality Modality Abdomen Radiographic Merissa ging 07/27/2022 2:22 PM CDT Impressions 07/27/2022 2:27 PM CDT IMPRESSION: No evidence of small bowel bowel obstruction. > Interpreting Provider: Ginette Wellington MD on 07/27/2022 2:27 PM Narrative 07/27/2022 2:27 PM CDT PROCEDURE: ??FL SMALL BOWEL SERIES, DATE/TIME OF EXAM: ??07/27/2022 2:26 PM, LOCATION ??[facility] INDICATION: K56.600: Partial obstruction of small intestine (CMS/HCC) ADDITIONAL CLINICAL INFORMATION: Ordering Provider Reason For Exam: ??SBO Technique/contrast: The nasogastric tube was advanced further into the stomach so that the side-port was within the stomach. A total of 200 cc water-soluble contrast (Isovue-300) was given through the NG tube, 100 cc at a time. Serial images were taken. FINDINGS: Print Graphic Designer image shows small bowel distention up to 4.5 cm. There is progressive advancement of the contrast column, with opacification of the ascending colon at 2 hours. Much of the small bowel is right-sided. Procedure Note Ginette Wellington MD - 07/27/2022 PROCEDURE: FL SMALL BOWEL SERIES, DATE/TIME OF EXAM: 07/27/2022 2:26PM, LOCATION [facility] INDICATION: K56.600: Partial obstruction of small intestine (CMS/HCC) ADDITIONAL CLINICAL INFORMATION: Ordering Provider Reason For Exam: SBO Technique/contrast: The nasogastric tube was advanced further into the stomach so that the side-port was within the stomach. A total of 200 cc water-solublecontrast (Isovue-300) was given through the NG tube, 100 cc at a time. Serialimages were taken. FINDINGS: Print Graphic Designer image shows small bowel distention up to [...] - 115 mg/dL 07/27/2022 6:19 PM CDT [facility] Specimen Type Arterial 07/27/2022 6:19 PM CDT [facility] Blood BLOOD SPECIMEN / Unknown 07/27/2022 11:59 AM CDT 07/27/2022 6:19 PM CDT Christiane Downing MD LAB - POINT OF CARE ORDERABLES [address] [address], [place] [phone] * GLUCOSE - POINT OF CARE (07/27/2022 7:26 AM CDT) Glucose WB/POC 104 70 - 115 mg/dL 07/27/2022 11:30 AM CDT [facility] Specimen Type Arterial 07/27/2022 11:30 AM CDT [facility] Blood BLOOD SPECIMEN / Unknown 07/27/2022 7:26 AM CDT 07/27/2022 11:30 AM CDT Christiane Downing MD LAB - POINT OF CARE ORDERABLES Performing Organization Address City/[facility]/ZIP Co de Phone Number [address] [address], [place] [phone] * GLUCOSE - POINT OF CARE (07/27/2022 4:01 AM CDT) Glucose WB/POC 97 70 - 115 mg/dL 07/27/2022 4:02 AM CDT [facility] Specimen Type Cap Fingerstick 2022 4:02 AM CDT [facility] Blood BLOOD SPECIMEN / Unknown 07/27/2022 4:01 AM CDT 07/27/2022 4:02 AM CDT Christiane Downing MD LAB - POINT OF CARE ORDERABLES [address] [address], [place] [phone] * BASIC METABOLIC PANEL (CALCIUM TOTAL) (07/27/2022 2:57 AM CDT) Pathologist [facility] BUN 15 7 - 26 mg/dL 07/27/2022 4:19 AM [facility] Creatinine 0.86 0.71 - 1.16 mg/dL 07/27/2022 4:19 AM [facility] Sodium 141 136 - 145 mmol/L 07/27/2022 4:19 AM [facility] Potassium 3.9 3.5 - 4.5 mmol/L 07/27/2022 4:19 AM [facility] Chloride 105 98 - 107 mmol/L 07/27/2022 4:19 AM [facility] CO2 25 22 - 29 mmol/L 07/27/2022 4:19 AM [facility] Glucose 95 70 - 115 mg/dL 07/27/2022 4:19 AM [facility] Calcium 9.3 8.4 - 10.2 mg/dL 07/27/2022 4:19 AM [facility] Anion Gap 15 8 - 18 07/27/2022 4:19 AM [facility] BUN/Creatinine Ratio 17 7 - 23 07/27/2022 4:19 AM [facility] Osmolality Calculated 293 270 - 300 mOsm/kg 07/27/2022 4:19 AM [facility] eGFR by CKD-EPI >90 >=90 mL/min/1.7 3 m2 07/27/2022 4:19 AM [facility] Blood BLOOD SPECIMEN / Unknown Lab Venipuncture / Unknown 07/27/2022 2:57 AM CDT 07/27/2022 3:49 AM CDT Velia Gray MD LAB - CHEMISTRY TRAY REYES [facility] Organization Address City/State/ZIP Co de Phone Number [address] [address], [facility] [phone] * (ABNORMAL) CBC W/O DIFFERENTIAL (07/27/2022 2:57 AM CDT) Pathologist [facility] WBC 8.2 3.5 - 10.5 10? 3 /uL 07/27/2022 4:03 AM [facility] RBC 4.73 4.30 - 5.70 10? 6 /uL 07/27/2022 4:03 AM [facility] Hemoglobin 12.2 12.0 - 17.6 g/dL 07/27/2022 4:03 AM [facility] Hematocrit 38.1 35.2 - 51.7 % 07/27/2022 4:03 AM [facility] MCV 80.5(L) 80.7 - 98.3 fL 07/27/2022 4:03 AM [facility] MCH 25.8(L) 26.7 - 34.0 pg 07/27/2022 4:03 AM [facility] MCHC 32.0 30.8 - 35.9 g/dL 07/27/2022 4:03 AM [facility] RDW-SD 38.7 36.0 - 50.0 fL 07/27/2022 4:03 AM [facility] RDW-CV 13.4 11.2 - 14.8 % 07/27/2022 4:03 AM [facility] Platelet Count 342 150 - 400 10? 3 /uL 07/27/2022 4:03 AM [facility] MPV 10.3 9.4 - 12.9 fL 07/27/2022 4:03 AM [facility] nRBC Absolute 0.00 0 10? 3 /uL 07/27/2022 4:03 AM [facility] nRBC Auto 0.0 0 /100 WBC 07/27/2022 4:03 AM [facility] Blood BLOOD SPECIMEN / Unknown Lab Venipuncture / Unknown 07/27/2022 2:57 AM CDT 07/27/2022 3:50 AM CDT Velia Gray MD LAB - HEMATOLOGY ORD ERABLES [facility] [address] [place] [address], [facility] [phone] * MAGNESIUM BLOOD (07/27/2022 2:57 AM CDT) Magnesium 2.1 1.6 - 2.6 mg/dL 07/27/2022 4:19 AM CDT [facility] Blood BLOOD SPECIMEN / Unknown Lab Venipuncture / Unknown 07/27/2022 2:57 AM CDT 07/27/2022 3:49 AM CDT Velia Gray MD LAB - CHEMISTRY ORDPatricia REYES [address] [address], [place] [phone] * PHOSPHORUS BLOOD (07/27/2022 2:57 AM CDT) Phosphorus 3.8 2.8 - 5.1 mg/dL 07/27/2022 4:19 AM CDT [facility] Blood BLOOD SPECIMEN / Unknown Lab Venipuncture / Unknown 07/27/2022 2:57 AM CDT 07/27/2022 3:49 AM CDT Velia Gray MD LAB - CHEMISTRY [place] Performing Organization Address [facility]/ZIP Co de Phone Number [address] [address], [place] [phone] * GLUCOSE - POINT OF CARE (07/27/2022 1:08 AM CDT) Glucose WB/POC 83 70 - 115 mg/dL 07/27/2022 4:02 AM CDT [facility] Specimen Type Cap Fingerstick 2022 4:02 AM CDT [facility] Blood BLOOD SPECIMEN / Unknown 07/27/2022 1:08 AM CDT 07/27/2022 4:02 AM CDT Christiane Downing MD LAB - POINT OF CARE ORDERABLES Performing Organization Address City/[facility]/ZIP Co de Phone Number [address] [address], [place] [phone] * GLUCOSE - POINT OF CARE (07/26/2022 8:59 PM CDT) Glucose WB/POC 100 70 - 115 mg/dL 07/26/2022 9:04 PM CDT [facility] Specimen Type Cap Fingerstick 2022 9:04 PM CDT [facility] Blood BLOOD SPECIMEN / Unknown 07/26/2022 8:59 PM CDT 07/26/2022 9:04 PM CDT Nikita Chavez MD LAB - POINT OF CARE ORDERABLES Performing Organization Address City/[facility]/ZIP Co de Phone Number [address] [address], [place] [phone] * GLUCOSE - POINT OF CARE (07/26/2022 2:13 PM CDT) Glucose WB/POC 106 70 - 115 mg/dL 07/26/2022 2:17 PM CDT [facility] Specimen Type Cap Fingerstick 2022 2:17 PM CDT [facility] Blood BLOOD SPECIMEN / Unknown 07/26/2022 2:13 PM CDT 07/26/2022 2:17 PM CDT Nikita Chavez MD LAB - POINT OF CARE ORDERABLES Performing Organization Address City/[facility]/ZIP Co de Phone Number [address] [address], [place] [phone] * (ABNORMAL) GLUCOSE - POINT OF CARE (07/26/2022 8:38 AM CDT) Glucose WB/POC 130(H) 70 - 115 mg/dL 07/26/2022 8:39 AM CDT [facility] Specimen Type Cap Fingerstick 2022 8:39 AM CDT [facility] Blood BLOOD SPECIMEN / Unknown 07/26/2022 8:38 AM CDT 07/26/2022 8:39 AM CDT Nikita Chavez MD LAB - POINT OF CARE ORDERABLES [facility] [address] [place] [address], [facility] [phone] * (ABNORMAL) BASIC METABOLIC PANEL (CALCIUM TOTAL) (07/26/2022 3:44 AM CDT) BUN 16 7 - 26 mg/dL 07/26/2022 4:32 AM [facility] Creatinine 0.77 0.71 - 1.16 mg/dL 07/26/2022 4:32 AM [facility] Sodium 136 136 - 145 mmol/L 07/26/2022 4:32 AM [facility] Potassium 4.0 3.5 - 4.5 mmol/L 07/26/2022 4:32 AM [facility] Chloride 101 98 - 107 mmol/L 07/26/2022 4:32 AM [facility] CO2 25 22 - 29 mmol/L 07/26/2022 4:32 AM [facility] Glucose 151(H) 70 - 115 mg/dL 07/26/2022 4:32 AM [facility] Calcium 9.4 8.4 - 10.2 mg/dL 07/26/2022 4:32 AM [facility] Anion Gap 14 8 - 18 07/26/2022 4:32 AM [facility] BUN/Creatinine Ratio 21 7 - 23 07/26/2022 4:32 AM [facility] Osmolality Calculated 286 270 - 300 mOsm/kg 07/26/2022 4:32 AM [facility] eGFR by CKD-EPI >90 >=90 mL/min/1.7 3 m2 07/26/2022 4:32 AM [facility] Blood BLOOD SPECIMEN / Unknown Venipuncture / Unknown 07/26/2022 3:44 AM CDT 07/26/2022 4:05 AM [facility] Velia Gray MD LAB - CHEMISTRY [place] [facility] [address] [place] [address], [facility] [phone] * (ABNORMAL) CBC W/O DIFFERENTIAL (07/26/2022 3:44 AM CDT) WBC 11.2(H) 3.5 - 10.5 10? 3 /uL 07/26/2022 4:10 AM [facility] RBC 4.80 4.30 - 5.70 10? 6 /uL 07/26/2022 4:10 AM [facility] Hemoglobin 12.4 12.0 - 17.6 g/dL 07/26/2022 4:10 AM [facility] Hematocrit 38.6 35.2 - 51.7 % 07/26/2022 4:10 AM [facility] MCV 80.4(L) 80.7 - 98.3 fL 07/26/2022 4:10 AM [facility] MCH 25.8(L) 26.7 - 34.0 pg 07/26/2022 4:10 AM [facility] MCHC 32.1 30.8 - 35.9 g/dL 07/26/2022 4:10 AM [facility] RDW-SD 40.0 36.0 - 50.0 fL 07/26/2022 4:10 AM [facility] RDW-CV 13.6 11.2 - 14.8 % 07/26/2022 4:10 AM [facility] Platelet Count 411(H) 150 - 400 10? 3 /uL 07/26/2022 4:10 AM [facility] MPV 10.3 9.4 - 12.9 fL 07/26/2022 4:10 AM [facility] nRBC Absolute 0.00 0 10? 3 /uL 07/26/2022 4:10 AM [facility] nRBC Auto 0.0 0 /100 WBC 07/26/2022 4:10 AM [facility] Blood BLOOD SPECIMEN / Unknown Venipuncture / Unknown 07/26/2022 3:44 AM CDT 07/26/2022 4:05 AM CDT Velia Gray MD LAB - HEMATOLOGY ORD ERABLES [facility] [address] [place] [address], [facility] [phone] * MAGNESIUM BLOOD (07/26/2022 3:44 AM CDT) Magnesium 1.9 1.6 - 2.6 mg/dL 07/26/2022 4:32 AM CDT [facility] Blood BLOOD SPECIMEN / Unknown Venipuncture / Unknown 07/26/2022 3:44 AM CDT 07/26/2022 4:05 AM CDT Velia Gray MD LAB - CHEMISTRY ORDPatricia REYES [address] [address], [facility] [phone] * PHOSPHORUS BLOOD (07/26/2022 3:44 AM CDT) Phosphorus 4.0 2.8 - 5.1 mg/dL 07/26/2022 4:32 AM CDT [facility] Blood BLOOD SPECIMEN / Unknown Venipuncture / Unknown 07/26/2022 3:44 AM CDT 07/26/2022 4:05 AM CDT Velia Gray MD LAB - CHEMISTRY [place] Performing Organization Address City/[facility]/ZIP Co de Phone Number [address] [address], [facility] [phone] * (ABNORMAL) HEMOGLOBIN A1C (07/26/2022 3:44 AM CDT) Hemoglobin A1c 6.3(H) <=5.6 % 07/26/2022 11:04 AM CDT [facility] Estimated Average Glucose 134 mg/dL 07/26/2022 11:04 AM CDT [facility] Comment: HbA1c Interpretation: Normal : < 5.7% Pre-diabetes: 5.7-6.4% Diabetes: Equal to or greater than 6.5% Test results diagnostic of diabetes should be repeated for confirmation. Treatment target values recommended by ADA and other clinical organizations should be used to evaluate metabolic control in patients. Reference: [place] [employer] Association, Standards of Care in Diabetes [...] Gray MD LAB - CHEMISTRY [place] [address] [address], [place] [phone] * (ABNORMAL) GLUCOSE - POINT OF CARE (07/26/2022 3:42 AM CDT) Glucose WB/POC 147(H) 70 - 115 mg/dL 07/26/2022 3:43 AM CDT [facility] Specimen Type Venous 07/26/2022 3:43 AM CDT [facility] Blood BLOOD SPECIMEN / Unknown 07/26/2022 3:42 AM CDT 07/26/2022 3:43 AM CDT Velia Gray MD LAB - POINT OF CARE ORDERABLES [address] [address], [place] [phone] * (ABNORMAL) GLUCOSE - POINT OF CARE (07/26/2022 12:18 AM CDT) Glucose WB/POC 134(H) 70 - 115 mg/dL 07/26/2022 12:24 AM CDT [facility] Specimen Type Venous 07/26/2022 12:24 AM CDT [facility] Blood BLOOD SPECIMEN / Unknown 07/26/2022 12:18 AM CDT 07/26/2022 12:24 AM CDT Velia Gray MD LAB - POINT OF CARE ORDERABLES [facility] [address] [place] [address], [facility] [phone] * XR ABDOMEN KUB PORTABLE (07/25/2022 11:18 PM CDT) Anatomical Region Laterality Modality Abdomen Radiographic Merissa ging 07/25/2022 11:3 2 PM CDT Narrative 07/26/2022 12:25 AM CDT PROCEDURE: ??XR ABDOMEN KUB PORTABLE, DATE/TIME OF EXAM: ??07/25/2022 11:19 PM, LOCATION ??[facility] INDICATION: R10.84: Abdominal pain, generalized [...] cholecystectomy. Report dictated by Adelita Pruitt MD (president & ceo). I, Oseas Nguyen MD, PhD have personally reviewed and interpreted this examination/study. > Interpreting Provider: Oseas Nguyen MD, PhD on 07/26/2022 12:25 AM Procedure Note Oseas Nguyen MD - 07/26/2022 PROCEDURE: XR ABDOMEN KUB PORTABLE, DATE/TIME OF EXAM: 07/25/2022 11:19 PM, LOCATION [facility] INDICATION: R10.84: Abdominal pain, generalized [...] cholecystectomy. Report dictated by Adelita Pruitt MD (president & ceo). Oseas Zhou MD, PhD have personally reviewed [...] was drafted by Dr. Robin Lundberg MD. (resident hall director). IAdriel MD have personally reviewed and interpreted this examination/study. > Interpreting Provider: Adriel Rosen MD on 07/25/2022 11:14 PM Narrative 07/25/2022 11:14 PM CDT PROCEDURE: ??CT ABDOMEN PELVIS W CONTRAST, DATE/TIME OF EXAM: ??07/25/2022 7:30 PM, LOCATION ??[facility] INDICATION: R10.84: Abdominal pain, generalized [...] DATE/TIME OF EXAM: 07/25/2022 7:30 PM, LOCATION [facility] INDICATION: R10.84: Abdominal pain, generalized [...] was drafted by Dr. Robin Lundberg MD. (resident hall director). I, Adriel Rosen MD have personally reviewed and interpreted this examination/study. > Interpreting Provider: Adriel Rosen MD on 07/25/2022 11:14 PM Velia Gray MD CT ORDERABLES * (ABNORMAL) COMPREHENSIVE METABOLIC PANEL (07/25/2022 5:54 PM CDT) BUN 13 7 - 26 mg/dL 07/25/2022 6:25 PM CDT [facility] Creatinine 0.68(L) 0.71 - 1.16 mg/dL 07/25/2022 6:25 PM CDT [facility] Sodium 139 136 - 145 mmol/L 07/25/2022 6:25 PM [facility] Potassium 4.0 3.5 - 4.5 mmol/L 07/25/2022 6:25 PM [facility] Chloride 104 98 - 107 mmol/L 07/25/2022 6:25 PM [facility] CO2 24 22 - 29 mmol/L 07/25/2022 6:25 PM [facility] Glucose 126(H) 70 - 115 mg/dL 07/25/2022 6:25 PM [facility] Calcium 10.1 8.4 - 10.2 mg/dL 07/25/2022 6:25 PM [facility] Protein Total 8.2 6.0 - 8.3 g/dL 07/25/2022 6:25 PM [facility] Albumin 4.2 3.4 - 5.0 g/dL 07/25/2022 6:25 PM [facility] Bilirubin Total 0.8 0.2 - 1.2 mg/dL 07/25/2022 6:25 PM [facility] Alkaline Phosphatase 120 40 - 150 U/L 07/25/2022 6:25 PM [facility] ALT 55 5 - 55 U/L 07/25/2022 6:25 PM [facility] AST 20 5 - 34 U/L 07/25/2022 6:25 PM [facility] Anion Gap 15 8 - 18 07/25/2022 6:25 PM [facility] BUN/Creatinine Ratio 19 7 - 23 07/25/2022 6:25 PM [facility] Osmolality Calculated 290 270 - 300 mOsm/kg 07/25/2022 6:25 PM [facility] Albumin/Globulin Ratio 1.1 1.1 - 2.3 07/25/2022 6:25 PM [facility] eGFR by CKD-EPI >90 >=90 mL/min/1.7 3 m2 07/25/2022 6:25 PM [facility] Blood BLOOD SPECIMEN / Unknown Venipuncture / Unknown 07/25/2022 5:54 PM CDT 07/25/2022 6:00 PM CDT Velia Gray MD LAB - CHEMISTRY [place] [address] [address], [place] [phone] * LACTIC ACID BLOOD (07/25/2022 4:57 PM CDT) [facility] Lactic Acid-Stat 1.6 <=2.0 mmol/L 07/25/2022 5:38 PM CDT [facility] Blood BLOOD SPECIMEN / Unknown Venipuncture / Unknown 07/25/2022 4:57 PM CDT 07/25/2022 5:17 PM CDT Velia Gray MD LAB - CHEMISTRY [place] Performing Organization Address City/[facility]/ZIP Co de Phone Number [address] [address], [place] [phone] * PT-INR [facility] (07/25/2022 4:57 PM CDT) [facility] PT 12.7 12.1 - 14.8 Seconds 07/25/2022 5:39 PM CDT [facility] INR 1.0 See Comment 07/25/2022 5:39 PM CDT [facility] Comment:The suggested therap eutic range for standard coumadin (warfarin) therapy is an INR of 2.0-3.0. For high-risk patients (Mechanical Mitral Valve Prosthesis, etc.), the suggested prophylactic therapeutic range is an INR of 2.5-3.5. Blood BLOOD SPECIMEN / Unknown Venipuncture / Unknown 07/25/2022 4:57 PM CDT 07/25/2022 5:17 PM CDT Velia Gray MD LAB - COAGULATION OR DERABLES [address] [address], [place] [phone] * TYPE + SCREEN PANEL (07/25/2022 4:57 PM CDT) [facility] Antibody Screen NEG 5:48 PM CDT [facility] ABO Rh O POS 07/25/2022 5:48 PM CDT [facility] Blood Bank BLOOD SPECIMEN / Unknown Venipuncture / Unknown 07/25/2022 4:57 PM CDT 07/25/2022 5:13 PM CDT Velia Gray MD LAB - BLOOD BANK ORD ERABLES [facility] [address] [place] [address], [facility] [phone] * XR ABDOMEN KUB (07/25/2022 4:52 PM CDT) Anatomical Region Laterality Modality Abdomen Radiographic Merissa ging 07/25/2022 5:06 PM CDT Impressions 07/25/2022 11:16 PM CDT IMPRESSION: Stool in the distal colon. Multiple small bowel air-fluid levels without significant small bowel distention. Recommend clinical correlation with constipation. Report dictated by Uche Hensley MD (president & ceo). ISabra MD have personally reviewed and interpreted this examination/study. > Interpreting Provider: Sabra Tracy MD on 07/25/2022 11:16 PM Narrative 07/25/2022 11:16 PM CDT PROCEDURE: ??XR ABDOMEN KUB, DATE/TIME OF EXAM: ??07/25/2022 4:27 PM, LOCATION [facility] INDICATION: R10.84: Abdominal pain, generalized [...] KUB, DATE/TIME OF EXAM: 07/25/2022 4:27 PM,LOCATION [facility] INDICATION: R10.84: Abdominal pain, generalized [...] constipation. Report dictated by Uche Hensley MD (president & ceo). ISabra MD have personally reviewed and interpreted this examination/study. > Interpreting Provider: Sabra Tracy MD on 07/25/2022 11:16 PM Velia Gray MD DIAGNOSTIC IMAGING O RDERABLES * (ABNORMAL) CBC W AUTO DIFFERENTIAL (07/25/2022 4:30 PM CDT) WBC 14.9(H) 3.5 - 10.5 10? 3 /uL 07/25/2022 4:40 PM T [facility] RBC 5.49 4.30 - 5.70 10? 6 /uL 07/25/2022 4:40 PM [facility] Hemoglobin 14.4 12.0 - 17.6 g/dL 07/25/2022 4:40 PM [facility] Hematocrit 44.5 35.2 - 51.7 % 07/25/2022 4:40 PM [facility] MCV 81.1 80.7 - 98.3 fL 07/25/2022 4:40 PM [facility] MCH 26.2(L) 26.7 - 34.0 pg 07/25/2022 4:40 PM [facility] MCHC 32.4 30.8 - 35.9 g/dL 07/25/2022 4:40 PM [facility] RDW-SD 39.5 36.0 - 50.0 fL 07/25/2022 4:40 PM [facility] RDW-CV 13.6 11.2 - 14.8 % 07/25/2022 4:40 PM [facility] Platelet Count 477(H) 150 - 400 10? 3 /uL 07/25/2022 4:40 PM [facility] MPV 10.2 9.4 - 12.9 fL 07/25/2022 4:40 PM [facility] nRBC Absolute 0.00 0 10? 3 /uL 07/25/2022 4:40 PM [facility] nRBC Auto 0.0 0 /100 WBC 07/25/2022 4:40 PM [facility] Neutrophils % 75.2(H) 35.0 - 70.0 % 07/25/2022 4:40 PM [facility] Lymphocytes % 16.6(L) 20.0 - 43.0 % 07/25/2022 4:40 PM [facility] Monocytes % 4.2(L) 5.0 - 13.0 % 07/25/2022 4:40 PM [facility] Eosinophils % 2.4 0.0 - 6.0 % 07/25/2022 4:40 PM [facility] Basophil % 0.8 0.0 - 2.0 % 07/25/2022 4:40 PM [facility] Neutrophils Absolute 11.18(H) 1.60 - 7.00 10? 3 /uL 07/25/2022 4:40 PM [facility] Lymphocyte Absolute 2.47 1.10 - 3.90 10? 3 /uL 07/25/2022 4:40 PM [facility] Monocytes Absolute 0.63 0.26 - 1.07 10? 3 /uL 07/25/2022 4:40 PM [facility] Eosinophils Absolute 0.35 0.00 - 0.47 10? 3 /uL 07/25/2022 4:40 PM [facility] Basophils Absolute 0.12(H) 0.00 - 0.08 10? 3 /uL 07/25/2022 4:40 PM [facility] Immature Granulocytes % 0.8 0.0 - 1.0 % 07/25/2022 4:40 PM CDT [facility] Immature Granulocytes Absolute 0.12 07/25/2022 4:40 PM CDT [facility] Blood BLOOD SPECIMEN / Unknown Venipuncture / Unknown 07/25/2022 4:30 PM CDT 07/25/2022 4:36 PM CDT Velia Gray MD LAB - HEMATOLOGY ORD ERABLES [facility] [address] [place] [address], [facility] [phone] documented in this encounter Visit Diagnoses Diagnosis [...] EVENT. documented in this encounter Care Teams Mail Forwarding System Markup Clerk Relationship Specialty Start Date End Date Pankaj Rosenberg MD [address] [facility] [address] [place] [phone] PCP - General 10/06/21 documented as of this encounter
--- OUTSIDE RECORDS SUMMARY | 2024-05-13 11:41 | XMS_ITS | Encounter Summary ---
Author Organization [facility] Address [address] [place] [address] Care Team Providers Care Cinder Crane Operator Name Role Phone Pankaj Rosenberg MD Primary Care Provider [phone] Encounter Details Date Type Department Care Team [...] on filedocumented in this encounter Care Teams Cinder Crane Operator Relationship Specialty Start Date End Date Pankaj Rosenberg MD [address] [id number] PCP - General 10/06/21 documented as of this encounter
--- OUTSIDE RECORDS SUMMARY | 2024-05-13 11:41 | XMS_ITS | Patient Health Summary ---
Author Organization [facility] Address [address] [place] [address] Care Team Providers Care Almond Blancher Name Role Phone Pankaj Rosenberg MD Primary Care Provider Note from [facility],non-owned Affiliates and Associated Physician Practices is amultiple site organization consisting of ambulatory clinics and hospital sitesin [place], [place], [place] and [place]. This disclosure is being madepursuant to the Care Everywhere program and may not contain all information available regarding this patient. Last updated 18.[facility] Allergies No known active allergies Medications * [...] and heating? Not hard at all 07/27/2022 [facility] [place] of Occupat ional Health - Occupational Stress [...] place to sleep or slept in a nursing home (including now)? No 07/27/2022 Sex and Gender [...] polyp * ENDOTRACHEAL TUBE NOTE(Performed 07/13/2022) * VT LAP,CHOLECYSTECTOMY(Performed 07/13/2022) Performed for Gallbladder polyp * [...] 09/17/2021) * ENDOTRACHEAL TUBE NOTE(Performed 09/17/2021) * VT EXPLORATORY OF ABDOMEN(Performed 09/17/2021) Performed for Small [...] of72 resultswithin the time period is included. [facility] Glucose WB/POC 121(H) 70 - 115 mg/dL 10/08/2022 2:55 PM CDT [facility] Specimen Type Cap Fingerstick 2022 2:55 PM T [facility] Blood BLOOD SPECIMEN / Unknown 10/08/2022 2:50 PM CDT 10/08/2022 2:55 PM CDT Julio Irwin MD LAB - POINT OF CARE ORDERABLES [facility] [address] [place] [id number], [facility] [phone] * (ABNORMAL) URINALYSIS REFLEX TO MICROSCOPIC NO CULTURE (10/08/2022 8:51 AM CDT) Only the most recent of2 resultswithin the time period is included. [facility] Color UA Yellow Straw, Yellow 10/08/2022 9:07 AM [facility] Clarity UA Clear Clear 10/08/2022 9:07 AM [facility] Specific Mcgregor UA 1.042(H) 1.005 - 1.030 10/08/2022 9:07 AM [facility] pH UA 5.0 5.0 - 8.0 pH 10/08/2022 9:07 AM [facility] Protein UA Negative Negative 10/08/2022 9:07 AM [facility] Glucose UA Negative Negative 10/08/2022 9:07 AM [facility] Ketone UA 1+(A) Negative 10/08/2022 9:07 AM [facility] Bilirubin UA Negative Negative 10/08/2022 9:07 AM [facility] Blood UA Negative Negative 10/08/2022 9:07 AM [facility] Nitrite UA Negative Negative 10/08/2022 9:07 AM [facility] Leukocyte Esterase Negative Negative 10/08/2022 9:07 AM CDT [facility] Urobilinogen UA Negative Negative mg/dL 10/08/2022 9:07 AM CDT [facility] RBC UA 0-2 None Seen, 0-2, 3-5 /HPF 10/08/2022 9:07 AM CDT [facility] WBC UA 0-5 None Seen, 0-5 /HPF 10/08/2022 9:07 AM CDT [facility] Squamous Epithelial Cells UA None Seen None Seen, 0-2, 3-5 /HPF 10/08/2022 9:07 AM CDT [facility] Mucus UA 1+ /LPF 10/08/2022 9:07 AM CDT [facility] Urine URINE SPECIMEN OBTAINED BY CLEAN CATCH PROCEDURE / Unknown Collection / Unknown 10/08/2022 8:51 AM CDT 10/08/2022 8:59 AM CDT Narrative [facility] - 10/08/2022 9:07 AM CDT Bharati Delaney PA-C LAB - URINALYSIS OR DERABLES [facility] [address] [place] [address], [facility] [phone] * CT ABDOMEN PELVIS W CONTRAST (10/07/2022 [...] seen. > Dictated by Adelita Pruitt MD (residential specialist). I, Adriel Rosen MD have personally reviewed and interpreted this examination/study. > Interpreting Provider: Adriel Rosen MD on 10/08/2022 1:45 AM Narrative 10/08/2022 1:45 AM CDT PROCEDURE: ??CT ABDOMEN PELVIS W CONTRAST, DATE/TIME OF EXAM: ??10/07/2022 7:19 PM, LOCATION ??[facility] INDICATION: R10.84: Abdominal pain, generalized ADDITIONAL [...] DATE/TIME OF EXAM: 10/07/2022 7:19 PM, LOCATION [facility] INDICATION: R10.84: Abdominal pain, generalized ADDITIONAL [...] seen. > Dictated by Adelita Pruitt MD (residential specialist). I, Adriel Rosen MD have personally reviewed and interpreted this examination/study. > Interpreting Provider: Adriel Rosen MD on 10/08/2022 1:45 AM Bharati KING-C CT ORDERABLES * LACTIC ACID BLOOD REFLEX TO REPEAT (10/07/2022 5:34 PM CDT) Only the most recent of2 resultswithin the time period is included. Lactic Acid-Stat 1.0 <=2.0 mmol/L 10/07/2022 6:03 PM CDT [facility] Blood BLOOD SPECIMEN / Unknown Venipuncture / Unknown 10/07/2022 5:34 PM CDT 10/07/2022 5:40 PM CDT Bharati Delaney PA-C LAB - CHEMISTRY ORD ERABLES [facility] [address] [place] [address], [facility] [phone] * (ABNORMAL) CBC W AUTO DIFFERENTIAL (10/07/2022 5:34 PM CDT) Only the most recent of4 resultswithin the time period is included. WBC 12.0(H) 3.5 - 10.5 10? 3 /uL 10/07/2022 5:46 PM CDT [facility] RBC 5.46 4.30 - 5.70 10? 6 /uL 10/07/2022 5:46 PM [facility] Hemoglobin 14.8 12.0 - 17.6 g/dL 10/07/2022 5:46 PM [facility] Hematocrit 43.8 35.2 - 51.7 % 10/07/2022 5:46 PM [facility] MCV 80.2(L) 80.7 - 98.3 fL 10/07/2022 5:46 PM [facility] MCH 27.1 26.7 - 34.0 pg 10/07/2022 5:46 PM [facility] MCHC 33.8 30.8 - 35.9 g/dL 10/07/2022 5:46 PM [facility] RDW-SD 40.0 36.0 - 50.0 fL 10/07/2022 5:46 PM [facility] RDW-CV 13.9 11.2 - 14.8 % 10/07/2022 5:46 PM [facility] Platelet Count 406(H) 150 - 400 10? 3 /uL 10/07/2022 5:46 PM [facility] MPV 10.2 9.4 - 12.9 fL 10/07/2022 5:46 PM [facility] nRBC Absolute 0.00 0 10? 3 /uL 10/07/2022 5:46 PM [facility] nRBC Auto 0.0 0 /100 WBC 10/07/2022 5:46 PM [facility] Neutrophils % 76.9(H) 35.0 - 70.0 % 10/07/2022 5:46 PM [facility] Lymphocytes % 17.2(L) 20.0 - 43.0 % 10/07/2022 5:46 PM [facility] Monocytes % 4.3(L) 5.0 - 13.0 % 10/07/2022 5:46 PM [facility] Eosinophils % 0.7 0.0 - 6.0 % 10/07/2022 5:46 PM [facility] Basophil % 0.5 0.0 - 2.0 % 10/07/2022 5:46 PM [facility] Neutrophils Absolute 9.22(H) 1.60 - 7.00 10? 3 /uL 10/07/2022 5:46 PM [facility] Lymphocyte Absolute 2.07 1.10 - 3.90 10? 3 /uL 10/07/2022 5:46 PM [facility] Monocytes Absolute 0.52 0.26 - 1.07 10? 3 /uL 10/07/2022 5:46 PM [facility] Eosinophils Absolute 0.09 0.00 - 0.47 10? 3 /uL 10/07/2022 5:46 PM [facility] Basophils Absolute 0.06 0.00 - 0.08 10? 3 /uL 10/07/2022 5:46 PM [facility] Immature Granulocytes % 0.4 0.0 - 1.0 % 10/07/2022 5:46 PM [facility] Immature Granulocytes Absolute 0.05 10/07/2022 5:46 PM [facility] Blood BLOOD SPECIMEN / Unknown Venipuncture / Unknown 10/07/2022 5:34 PM CDT 10/07/2022 5:40 PM CDT Bharati Delaney PA-C LAB - HEMATOLOGY OR DERABLES [facility] [address] [place] [address], [facility] [phone] * (ABNORMAL) COMPREHENSIVE METABOLIC PANEL (10/07/2022 5:34 PM [facility]) Only the most recent of4 resultswithin the time period is included. BUN 16 7 - 26 mg/dL 10/07/2022 6:08 PM [facility] Creatinine 0.76 0.71 - 1.16 mg/dL 10/07/2022 6:08 PM [facility] Sodium 138 136 - 145 mmol/L 10/07/2022 6:08 PM [facility] Potassium 4.3 3.5 - 4.5 mmol/L 10/07/2022 6:08 PM [facility] Chloride 103 98 - 107 mmol/L 10/07/2022 6:08 PM [facility] CO2 23 22 - 29 mmol/L 10/07/2022 6:08 PM [facility] Glucose 116(H) 70 - 115 mg/dL 10/07/2022 6:08 PM [facility] Calcium 10.5(H) 8.4 - 10.2 mg/dL 10/07/2022 6:08 PM [facility] Protein Total 8.7(H) 6.0 - 8.3 g/dL 10/07/2022 6:08 PM [facility] Albumin 4.5 3.4 - 5.0 g/dL 10/07/2022 6:08 PM [facility] Bilirubin Total 1.0 0.2 - 1.2 mg/dL 10/07/2022 6:08 PM [facility] Alkaline Phosphatase 98 40 - 150 U/L 10/07/2022 6:08 PM [facility] ALT 40 5 - 55 U/L 10/07/2022 6:08 PM [facility] AST 23 5 - 34 U/L 10/07/2022 6:08 PM [facility] Anion Gap 16 8 - 18 10/07/2022 6:08 PM [facility] BUN/Creatinine Ratio 21 7 - 23 10/07/2022 6:08 PM [facility] Osmolality Calculated 288 270 - 300 mOsm/kg 10/07/2022 6:08 PM [facility] Albumin/Globulin Ratio 1.1 1.1 - 2.3 10/07/2022 6:08 PM [facility] eGFR by CKD-EPI >90 >=90 mL/min/1.7 3 m2 10/07/2022 6:08 PM [facility] Blood BLOOD SPECIMEN / Unknown Venipuncture / Unknown 10/07/2022 5:34 PM CDT 10/07/2022 5:40 PM CDT Bharati Delaney PA-C LAB - CHEMISTRY ORD ERABLES [facility] [address] [place] [address], [facility] [phone] * (ABNORMAL) CBC W/O DIFFERENTIAL (07/28/2022 2:43 AM CDT) Only the most recent of16 resultswithin the time period is included. WBC 8.6 3.5 - 10.5 10? 3 /uL 07/28/2022 3:21 AM [facility] RBC 4.83 4.30 - 5.70 10? 6 /uL 07/28/2022 3:21 AM [facility] Hemoglobin 12.7 12.0 - 17.6 g/dL 07/28/2022 3:21 AM [facility] Hematocrit 39.2 35.2 - 51.7 % 07/28/2022 3:21 AM [facility] MCV 81.2 80.7 - 98.3 fL 07/28/2022 3:21 AM [facility] MCH 26.3(L) 26.7 - 34.0 pg 07/28/2022 3:21 AM [facility] MCHC 32.4 30.8 - 35.9 g/dL 07/28/2022 3:21 AM [facility] RDW-SD 39.4 36.0 - 50.0 fL 07/28/2022 3:21 AM [facility] RDW-CV 13.5 11.2 - 14.8 % 07/28/2022 3:21 AM [facility] Platelet Count 352 150 - 400 10? 3 /uL 07/28/2022 3:21 AM [facility] MPV 10.2 9.4 - 12.9 fL 07/28/2022 3:21 AM [facility] nRBC Absolute 0.00 0 10? 3 /uL 07/28/2022 3:21 AM [facility] nRBC Auto 0.0 0 /100 WBC 07/28/2022 3:21 AM [facility] Blood BLOOD SPECIMEN / Unknown Lab Venipuncture / Unknown 07/28/2022 2:43 AM CDT 07/28/2022 3:13 AM CDT Velia Gray MD LAB - HEMATOLOGY ORD ERABLES [facility] [address] [place] [address], [facility] [phone] * (ABNORMAL) BASIC METABOLIC PANEL (CALCIUM TOTAL) (07/28/2022 2:43 AM CDT) Only the most recent of11 resultswithin the time period is included. BUN 15 7 - 26 mg/dL 07/28/2022 3:39 AM [facility] Creatinine 0.86 0.71 - 1.16 mg/dL 07/28/2022 3:39 AM [facility] Sodium 144 136 - 145 mmol/L 07/28/2022 3:39 AM [facility] Potassium 3.8 3.5 - 4.5 mmol/L 07/28/2022 3:39 AM [facility] Chloride 105 98 - 107 mmol/L 07/28/2022 3:39 AM [facility] CO2 25 22 - 29 mmol/L 07/28/2022 3:39 AM [facility] Glucose 121(H) 70 - 115 mg/dL 07/28/2022 3:39 AM [facility] Calcium 9.4 8.4 - 10.2 mg/dL 07/28/2022 3:39 AM [facility] Anion Gap 18 8 - 18 07/28/2022 3:39 AM [facility] BUN/Creatinine Ratio 17 7 - 23 07/28/2022 3:39 AM CDT [facility] Osmolality Calculated 300 270 - 300 mOsm/kg 07/28/2022 3:39 AM CDT [facility] eGFR by CKD-EPI >90 >=90 mL/min/1.7 3 m2 07/28/2022 3:39 AM CDT [facility] Blood BLOOD SPECIMEN / Unknown Lab Venipuncture / Unknown 07/28/2022 2:43 AM CDT 07/28/2022 3:09 AM CDT Velia Gray MD LAB - CHEMISTRY ORDPatricia REYES [address] [address], [facility] [phone] * PHOSPHORUS BLOOD (07/28/2022 2:43 AM CDT) Only the most recent of10 resultswithin the time period is included. Phosphorus 4.2 2.8 - 5.1 mg/dL 07/28/2022 3:39 AM CDT [facility] Blood BLOOD SPECIMEN / Unknown Lab Venipuncture / Unknown 07/28/2022 2:43 AM CDT 07/28/2022 3:09 AM CDT Velia Gray MD LAB - CHEMISTRY ORDPatricia REYES [address] [address], [place] [phone] * MAGNESIUM BLOOD (07/28/2022 2:43 AM CDT) Only the most recent of14 resultswithin the time period is included. Magnesium 2.2 1.6 - 2.6 mg/dL 07/28/2022 3:39 AM CDT [facility] Blood BLOOD SPECIMEN / Unknown Lab Venipuncture / Unknown 07/28/2022 2:43 AM CDT 07/28/2022 3:09 AM CDT Velia Gray MD LAB - CHEMISTRY ORDE [facility] Organization Address City/State/ZIP Co de Phone Number [facility] [address] [place] [address], [facility] [phone] * FL SMALL BOWEL SERIES (07/27/2022 2:25 [...] DATE/TIME OF EXAM: ??07/27/2022 2:26 PM, LOCATION ??[facility] INDICATION: K56.600: Partial obstruction of small intestine (CMS/HCC) ADDITIONAL CLINICAL INFORMATION: Ordering Provider Reason For Exam: ??SBO Technique/contrast: The nasogastric tube was advanced further into the stomach so that the side-port was within the stomach. A total of 200 cc water-soluble contrast (Isovue-300) was given through the NG tube, 100 cc at a time. Serial images were taken. FINDINGS: Senior Air Director image shows small bowel distention up to 4.5 cm. There is progressive advancement of the contrast column, with opacification of the ascending colon at 2 hours. Much of the small bowel is right-sided. Procedure Note Ginette Wellington MD - 07/27/2022 PROCEDURE: FL SMALL BOWEL SERIES, DATE/TIME OF EXAM: 07/27/2022 2:26PM, LOCATION [facility] INDICATION: K56.600: Partial obstruction of small intestine (CMS/HCC) ADDITIONAL CLINICAL INFORMATION: Ordering Provider Reason For Exam: SBO Technique/contrast: The nasogastric tube was advanced further into the stomach so that the side-port was within the stomach. A total of 200 cc water-solublecontrast (Isovue-300) was given through the NG tube, 100 cc at a time. Serialimages were taken. FINDINGS: Senior Air Director image shows small bowel distention up to [...] 6.3(H) <=5.6 % 07/26/2022 11:04 AM CDT [facility] Estimated Average Glucose 134 mg/dL 07/26/2022 11:04 AM CDT [facility] Comment: HbA1c Interpretation: Normal : < 5.7% Pre-diabetes: 5.7-6.4% Diabetes: Equal to or greater than 6.5% Test results diagnostic of diabetes should be repeated for confirmation. Treatment target values recommended by ADA and other clinical organizations should be used to evaluate metabolic control in patients. Reference: [place] [employer], Standards of Care in Diabetes [...] Gray MD LAB - CHEMISTRY [place] REYES [facility] [address] [address], [facility] [phone] * XR ABDOMEN KUB PORTABLE (07/25/2022 11:18 PM CDT) Only the most recent of4 resultswithin the time period is included. Anatomical Region Laterality Modality Abdomen Radiographic Merissa ging 07/25/2022 11:3 2 PM CDT Narrative 07/26/2022 12:25 AM CDT PROCEDURE: ??XR ABDOMEN KUB PORTABLE, DATE/TIME OF EXAM: ??07/25/2022 11:19 PM, LOCATION ??[facility] INDICATION: R10.84: Abdominal pain, generalized ADDITIONAL [...] cholecystectomy. Report dictated by Adelita Pruitt MD (residential specialist). Oseas Zhou MD, PhD have personally reviewed and interpreted this examination/study. > Interpreting Provider: Oseas Nguyen MD, PhD on 07/26/2022 12:25 AM Procedure Note Oseas Nguyen MD - 07/26/2022 PROCEDURE: XR ABDOMEN KUB PORTABLE, DATE/TIME OF EXAM: 07/25/2022 11:19 PM, LOCATION [facility] INDICATION: R10.84: Abdominal pain, generalized ADDITIONAL [...] cholecystectomy. Report dictated by Adelita Pruitt MD (residential specialist). Oseas Zhou MD, PhD have personally reviewed and interpreted this examination/study. > Interpreting Provider: Oseas Nguyen MD, PhD on 07/26/2022 12:25 AM Velia Gray MD DIAGNOSTIC IMAGING O RDERABLES * PT-INR [facility] (07/25/2022 4:57 PM CDT) [facility] PT 12.7 12.1 - 14.8 Seconds 07/25/2022 5:39 PM CDT [facility] INR 1.0 See Comment 07/25/2022 5:39 PM CDT [facility] Comment:The suggested therap eutic range for standard coumadin (warfarin) therapy is an INR of 2.0-3.0. For high-risk patients (Mechanical Mitral Valve Prosthesis, etc.), the suggested prophylactic therapeutic range is an INR of 2.5-3.5. Blood BLOOD SPECIMEN / Unknown Venipuncture / Unknown 07/25/2022 4:57 PM CDT 07/25/2022 5:17 PM CDT Velia Gray MD LAB - COAGULATION OR DERABLES Performing Organization Address City/[facility]/ZIP Co de Phone Number [address] [address], [place] [phone] * TYPE + SCREEN PANEL (07/25/2022 4:57 PM CDT) Only the most recent of3 resultswithin the time period is included. Antibody Screen NEG 5:48 PM CDT [facility] ABO Rh O POS 07/25/2022 5:48 PM CDT [facility] Blood Bank BLOOD SPECIMEN / Unknown Venipuncture / Unknown 07/25/2022 4:57 PM CDT 07/25/2022 5:13 PM CDT Velia Gray MD LAB - BLOOD BANK ORD ERABLES [facility] B[facility] LAB [address] [place] [address], [place] [phone] * LACTIC ACID BLOOD (07/25/2022 4:57 PM CDT) Only the most recent of2 resultswithin the time period is included. Lactic Acid-Stat 1.6 <=2.0 mmol/L 07/25/2022 5:38 PM CDT [facility] Blood BLOOD SPECIMEN / Unknown Venipuncture / Unknown 07/25/2022 4:57 PM CDT 07/25/2022 5:17 PM CDT Velia Gray MD LAB - CHEMISTRY RTAY [facility] Organization Address City/State/ZIP Co de Phone Number [facility] [address] [place] [address], [facility] [phone] * XR ABDOMEN KUB (07/25/2022 4:52 PM CDT) Only the most recent of2 resultswithin the time period is included. Anatomical Region Laterality Modality Abdomen Radiographic Merissa ging 07/25/2022 5:06 PM CDT Impressions 07/25/2022 11:16 PM CDT IMPRESSION: Stool in the distal colon. Multiple small bowel air-fluid levels without significant small bowel distention. Recommend clinical correlation with constipation. Report dictated by Uche Hensley MD (residential specialist). Sabra Zhou MD have personally reviewed and interpreted this examination/study. > Interpreting Provider: Sabra Tracy MD on 07/25/2022 11:16 PM Narrative 07/25/2022 11:16 PM CDT PROCEDURE: ??XR ABDOMEN KUB, DATE/TIME OF EXAM: ??07/25/2022 4:27 PM, LOCATION [facility] INDICATION: R10.84: Abdominal pain, generalized ADDITIONAL [...] KUB, DATE/TIME OF EXAM: 07/25/2022 4:27 PM,LOCATION [facility] INDICATION: R10.84: Abdominal pain, generalized ADDITIONAL [...] constipation. Report dictated by Uche Hensley MD (residential specialist). ISabra MD have personally reviewed and interpreted this examination/study. > Interpreting Provider: Sabra Tracy MD on 07/25/2022 11:16 PM Velia Gray MD DIAGNOSTIC IMAGING O RDERABLES * PATHOLOGY TISSUE (07/13/2022 9:02 AM FLIGHT INFORMATION EXPEDITER) Only the most recent of2 resultswithin the time period is included. Case Report Surgical Pathology Report ? Case: [id number] ? Authorizing Provider: ??Carolyn Miles MD ? Collected: ? 07/13/2022 09:02 AM ? Ordering Location: ? [facility] ?Received: ?07/13/2022 10:25 AM ? Pathologist: ? Gene Guardado MD ? Specimen: ?Gallbladder, GALLBLADDER ? 07/16/2022 1:33 PM [facility] Final Diagnosis Gallbladder, cholecystectomy (A): - Mild chronic cholecystitis 07/16/2022 1:33 PM [facility] Microscopic Description and Comment Microscopic examination substantiates the final diagnosis. No polyp identified grossly. 07/16/2022 1:33 PM [facility] Clinical History The patient is is a 27 year old male who presents with hx of gallbladder polyps recently getting larger on last ultrasound. The patient underwent cholecystectomy 07/16/2022 1:33 PM [facility] Gross Description Requisition and specimen [...] wall thickness is up to 0.2 cm. Locks Tender section is submitted in cassette A1-A2. /MA Additional sections are submitted in cassettes A3. /ME 07/16/2022 1:33 PM [facility] Disclaimer The performance characteristics of all immunohistochemical and indirect immunofluorescence stains (if any) cited in this report were determined by the Histopathology Laboratory of [facility]. Some of these tests were developed [...] the attending (teaching) pathologist. 07/16/2022 1:33 PM [facility] Embedded Images 07/16/2022 1:33 PM [facility] Resection without Tumor ENTIRE GALLBLADDER / Unknown 07/13/2022 9:02 AM FLIGHT INFORMATION EXPEDITER 07/13/2022 10:25 AM FLIGHT INFORMATION EXPEDITER Comment:Pre-op diagnosis: Gallbladder polyp Carolyn Miles MD LAB - PATHOLOGY/CYTO LOGY ORDERABLES [facility] [address] [place] [address], [facility] [phone] * ETT LINE PERFORMABLE (07/13/2022 8:05 AM FLIGHT INFORMATION EXPEDITER) Narrative Jenifer Coto Anes Asst - 07/13/2022 8:05 AM FLIGHT INFORMATION EXPEDITER Jenifer Coto Anes Asst ? 07/13/2022 ??8:06 AM Endotracheal Tube Placement: ? Patient Location: OR. Intubation Event Date/Time: ??07/13/2022 7:34 AM Procedure: intubation (46201). Procedure Section: ?? Sedation: under general anesthesia. [...] * RENAL FUNCTION PANEL (03/21/2022 6:06 AM [facility]) Only the most recent of4 resultswithin the time period is included. BUN 11 7 - 26 mg/dL 03/21/2022 8:26 AM [facility] Creatinine 0.82 0.71 - 1.16 mg/dL 03/21/2022 8:26 AM [facility] Sodium 140 136 - 145 mmol/L 03/21/2022 8:26 AM [facility] Potassium 4.0 3.5 - 4.5 mmol/L 03/21/2022 8:26 AM [facility] Chloride 107 98 - 107 mmol/L 03/21/2022 8:26 AM [facility] CO2 23 22 - 29 mmol/L 03/21/2022 8:26 AM [facility] Glucose 109 70 - 115 mg/dL 03/21/2022 8:26 AM [facility] Albumin 3.6 3.4 - 5.0 g/dL 03/21/2022 8:26 AM [facility] Calcium 9.3 8.4 - 10.2 mg/dL 03/21/2022 8:26 AM [facility] Phosphorus 3.7 2.8 - 5.1 mg/dL 03/21/2022 8:26 AM [facility] Anion Gap 14 8 - 18 03/21/2022 8:26 AM [facility] BUN/Creatinine Ratio 13 7 - 23 03/21/2022 8:26 AM [facility] Osmolality Calculated 290 270 - 300 mOsm/kg 03/21/2022 8:26 AM [facility] eGFR by CKD-EPI >90 >=90 mL/min/1.7 3 m2 03/21/2022 8:26 AM [facility] Blood BLOOD SPECIMEN / Unknown Lab Venipuncture / Unknown 03/21/2022 6:06 AM FLIGHT INFORMATION EXPEDITER 03/21/2022 7:05 AM [facility] Jay King PA-C LAB - CHEMISTRY ORD ERABLES [facility] [address] [place] [address], [facility] [phone] * CULTURE BLOOD (03/17/2022 5:27 AM CDT) Only the most recent of2 resultswithin the time period is included. Culture No growth day 5 YAN 03/22/2022 7:30 AM FLIGHT INFORMATION EXPEDITER [facility] MICROBIOLOGY Blood PERIPHERAL BLOOD / Unknown Venipuncture / Unknown 03/17/2022 5:27 AM CDT 03/17/2022 5:32 AM CDT Carolyn Houston MD LAB - MICROBIOLOGY O RDERABLES [facility] MICROBIOLOGY [address] [place] [address], [facility] [phone] * PROCALCITONIN LEVEL (03/17/2022 5:22 AM CDT) PROCALCITONIN <0.02 <=0.10 ng/mL 03/17/2022 6:42 AM CDT [facility] Blood BLOOD SPECIMEN / Unknown Venipuncture / Unknown 03/17/2022 5:22 AM CDT 03/17/2022 5:47 AM CDT Narrative [facility] - 03/17/2022 6:42 AM CDT The change [...] Change in Procalcitonin Calculator is available at [email or web address] ?? If clinical picture has not improved and PCT remains high, reevaluate and consider treatment failure or other causes. Carolyn Houston MD LAB - CHEMISTRY [place] Performing Organization Address City/[facility] System/ZIP Co de Phone Number [address] [address], [place] [phone] * CREATININE - POCT INTERFACED (03/17/2022 4:16 AM CDT) Creatinine POCT 0.89 0.30 - 1.30 mg/dL 03/17/2022 4:28 AM CDT [facility] eGFR >90 >90 mL/min/1.7 3 m2 03/17/2022 4:28 AM CDT [facility] Blood BLOOD SPECIMEN / Unknown 03/17/2022 4:16 AM CDT 03/17/2022 4:27 AM CDT Provider Unknown LAB - POINT OF CARE ORDERABLES Performing Organization Address [facility]/ZIP Co de Phone Number [address] [address], [place] [phone] * LIPASE BLOOD (03/17/2022 3:41 AM CDT) Lipase 26 8 - 78 U/L 03/17/2022 4:19 AM CDT [facility] Blood BLOOD SPECIMEN / Unknown Venipuncture / Unknown 03/17/2022 3:41 AM CDT 03/17/2022 3:51 AM CDT Eriberto Plascencia PA-C LAB - CHEM ISTRY ORDERABLES [facility] [address] [place] [address], [facility] [phone] * ARTERIAL LINE PERFORMABLE (09/17/2021 10:51 AM CDT) Narrative Darryl Samano MD - 09/17/2021 10:51 AM CDT Gene Rangel DO ? 09/17/2021 10:51 AM Arterial Line Placement Procedure Note Patient Location: OR. Procedure: Arterial Line ([id number]). Procedure Section ?? Indications: continuous blood pressure [...] Event Date/Time: ??09/17/2021 10:16 AM Procedure: intubation ([id number]). Procedure Section: ?? Sedation: under general anesthesia. [...] MD Nicole Suárez MD [facility] Care Teams Almond Blancher Relationship Specialty Start Date End Date Pankaj Rosenberg MD [address] [facility] [address] [place] [address] PCP - General 10/06/21
--- OUTSIDE RECORDS SUMMARY | 2024-05-13 11:41 | XMS_ITS | Encounter Summary ---
Author Organization [facility] Address [address] [place] [address] Care Team Providers Care Rivet Sticker Name Role Phone Pankaj Rosenberg MD Primary Care Provider [phone] Encounter Details Date Type Department Care Team (Latest Contact Info) Description 06/29/2022 1:30 PM STRUCTURAL ARCHITECT - 06/29/2022 2:46 PM [facility] Hospital Encounter [facility] PAT [address] [place] [address] Carolyn Miles MD [address] [place] [address] Discharge Disposition: Home or Self Care Anesthesia [...] Comments Blood Pressure 148/89 06/29/2022 2:22 PM STRUCTURAL ARCHITECT Pulse 86 06/29/2022 2:22 PM STRUCTURAL ARCHITECT Temperature 36.9 ??C (98.5 ??F) 06/29/2022 2:22 PM CS T Respiratory Rate 18 06/29/2022 2:22 PM STRUCTURAL ARCHITECT Oxygen Saturation 99% 06/29/2022 2:22 PM STRUCTURAL ARCHITECT Inhaled Oxygen Concentration - - Weight 122.7 kg (270 lb 8 oz) 06/29/2022 2:22 PM STRUCTURAL ARCHITECT Height 180.3 cm (5' 11 ) 06/29/2022 2:22 PM STRUCTURAL ARCHITECT Body Mass Index 37.73 06/29/2022 2:22 PM STRUCTURAL ARCHITECT documented in this encounter Functional Status Functional [...] 24 hours. 30 tablet 07/13/2022 10/08/2022 Lancets (Buddha SoftwareTOUCH DELICA PLUS 33G EXTRA FINE LANCET) USE [...] TYPE + SCREEN PANEL (06/29/2022 3:04 PM STRUCTURAL ARCHITECT) Antibody Screen NEG 3 4:[address] [facility] LAB ABO Rh O POS 06/29/2022 4:[address] [facility] Blood Bank BLOOD SPECIMEN / Unknown Lab Venipuncture / Unknown 06/29/2022 3:04 PM STRUCTURAL ARCHITECT 06/29/2022 3:07 PM STRUCTURAL ARCHITECT Marla Richard ARCHITECTURE FACULTY MEMBER-WASTE WATER PLANT OPERATOR LAB - BLOOD BANK ORDERABLES [facility] BLOOD [facility] LAB [address] [place] [address], [facility] [phone] * (ABNORMAL) CBC W/O DIFFERENTIAL (06/29/2022 3:04 PM STRUCTURAL ARCHITECT) WBC 9.6 3.5 - 10.5 10? 3 /uL 06/29/2022 3:31 PM [facility] RBC 5.15 4.30 - 5.70 10? 6 /uL 06/29/2022 3:31 PM [facility] Hemoglobin 13.5 12.0 - 17.6 g/dL 06/29/2022 3:31 PM [facility] Hematocrit 41.7 35.2 - 51.7 % 06/29/2022 3:31 PM [facility] MCV 81.0 80.7 - 98.3 fL 06/29/2022 3:31 PM [facility] MCH 26.2(L) 26.7 - 34.0 pg 06/29/2022 3:31 PM [facility] MCHC 32.4 30.8 - 35.9 g/dL 06/29/2022 3:31 PM [facility] RDW-SD 40.5 36.0 - 50.0 fL 06/29/2022 3:31 PM [facility] RDW-CV 14.0 11.2 - 14.8 % 06/29/2022 3:31 PM [facility] Platelet Count 359 150 - 400 10? 3 /uL 06/29/2022 3:31 PM [facility] MPV 10.3 9.4 - 12.9 fL 06/29/2022 3:31 PM [facility] nRBC Absolute 0.00 0 10? 3 /uL 06/29/2022 3:31 PM [facility] nRBC Auto 0.0 0 /100 WBC 06/29/2022 3:31 PM [facility] Blood BLOOD SPECIMEN / Unknown Lab Venipuncture / Unknown 06/29/2022 3:04 PM STRUCTURAL ARCHITECT 06/29/2022 3:26 PM STRUCTURAL ARCHITECT Marla Richard ARCHITECTURE FACULTY MEMBER-WASTE WATER PLANT OPERATOR LAB - HEMATOLOGY ORDERABLES [facility] [address] [place] [address], [facility] [phone] * (ABNORMAL) BASIC METABOLIC PANEL (CALCIUM TOTAL) (06/29/2022 3:04 PM STRUCTURAL ARCHITECT) BUN 11 7 - 26 mg/dL 06/29/2022 3:52 PM [facility] Creatinine 0.63(L) 0.71 - 1.16 mg/dL 06/29/2022 3:52 PM [facility] Sodium 139 136 - 145 mmol/L 06/29/2022 3:52 PM [facility] Potassium 4.0 3.5 - 4.5 mmol/L 06/29/2022 3:52 PM [facility] Chloride 105 98 - 107 mmol/L 06/29/2022 3:52 PM [facility] CO2 23 22 - 29 mmol/L 06/29/2022 3:52 PM [facility] Glucose 150(H) 70 - 115 mg/dL 06/29/2022 3:52 PM [facility] Calcium 9.7 8.4 - 10.2 mg/dL 06/29/2022 3:52 PM [facility] Anion Gap 15 8 - 18 06/29/2022 3:52 PM [facility] BUN/Creatinine Ratio 17 7 - 23 06/29/2022 3:52 PM [facility] Osmolality Calculated 290 270 - 300 mOsm/kg 06/29/2022 3:52 PM [facility] eGFR by CKD-EPI >90 >=90 mL/min/1.7 3 m2 06/29/2022 3:52 PM [facility] Blood BLOOD SPECIMEN / Unknown Lab Venipuncture / Unknown 06/29/2022 3:04 PM STRUCTURAL ARCHITECT 06/29/2022 3:26 PM STRUCTURAL ARCHITECT Marla Richard ARCHITECTURE FACULTY MEMBER-WASTE WATER PLANT OPERATOR LAB - CHEMISTRY ORDERABLES [facility] [address] [place] [address], [facility] [phone] documented in this encounter Visit Diagnoses Diagnosis Pre-op evaluation- Primary Preoperative examination, unspecified documented in this encounter Care Teams Rivet Sticker Relationship Specialty Start Date End Date Pankaj Rosenberg MD [facility] [address] [place] [place] [address] PCP - General 10/06/21 documented as of this encounter
--- OUTSIDE RECORDS SUMMARY | 2024-05-13 11:41 | XMS_ITS | Encounter Summary ---
Author Organization [facility] Address [address] [facility] [place] [address] Care Team Providers Care Manager Construction Name Role Phone Pankaj Rosenberg MD Primary Care Provider [phone] Reason for Visit * Reason Onset Date Comments Surgery Scheduling 06/17/2022 Encounter Details Date Type Department Care Team (Late st Contact Info) Description 06/17/2022 Telephone [facility] [address] [place] [address] Carolyn Miles MD [address] [place] [address] Surgery Scheduling Social History Tobacco Use Types [...] on filedocumented in this encounter Care Teams Manager Construction Relationship Specialty Start Date End Date Pankaj Rosenberg MD [address] [address] PCP - General 10/06/21 documented as of this encounter
--- OUTSIDE RECORDS SUMMARY | 2024-05-13 11:41 | XMS_ITS | Clinical Summary ---
Author Organization [facility] Address [address] [facility] [place] [address] Care Team Providers Care Editorial Assistant Name Role Phone Pankaj Rosenberg MD Primary Care Provider [phone] Source Comments [facility],non-owned Affiliates and Associated Physician Practices is amultiple site organization consisting of ambulatory clinics and hospital sitesin [place], [place], [place] and [place]. This disclosure is being madepursuant to the Care Everywhere program and may not contain all information available regarding this patient. Last updated 18.[facility] Second Light Allergies No known active allergies Medications * [...] gently Restart Allergy medications once cleared by Woodworking Craftsman PROCEDURE PERFORMED: Septoplasty Submucosal Reduction of Inferior Turbinates bilaterally Last Assessment & Plan: Continue nasal saline 2-3 times per day May blow nose gently Restart Allergy medications once cleared by Woodworking Craftsman PROCEDURE PERFORMED: Septoplasty Submucosal Reduction of Inferior [...] surgery. Added automatically from request for surgery [id number] Allergic rhinitis 10/22/2019 Overview (09/16/2021): Last Assessment & Plan: Continue nasal saline 2-3 times per day May blow nose gently Restart Allergy medications once cleared by Woodworking Craftsman Last Assessment & Plan: Continue nasal saline 2-3 times per day May blow nose gently Restart Allergy medications once cleared by Woodworking Craftsman Elbow problem 09/10/2013 Insomnia 09/10/2013 Resolved Problems [...] and heating? Not hard at all 07/27/2022 [facility] [place] of Occupat ional Health - Occupational Stress [...] to sleep or slept in a senior care (including now)? No 07/27/2022 Sex and Gender [...] 7 - 26 mg/dL 10/07/2022 6:08 PM [facility] Creatinine 0.76 0.71 - 1.16 mg/dL 10/07/2022 6:08 PM [facility] Sodium 138 136 - 145 mmol/L 10/07/2022 6:08 PM [facility] Potassium 4.3 3.5 - 4.5 mmol/L 10/07/2022 6:08 PM [facility] Chloride 103 98 - 107 mmol/L 10/07/2022 6:08 PM [facility] CO2 23 22 - 29 mmol/L 10/07/2022 6:08 PM [facility] Glucose 116(H) 70 - 115 mg/dL 10/07/2022 6:08 PM [facility] Calcium 10.5(H) 8.4 - 10.2 mg/dL 10/07/2022 6:08 PM [facility] Protein Total 8.7(H) 6.0 - 8.3 g/dL 10/07/2022 6:08 PM [facility] Albumin 4.5 3.4 - 5.0 g/dL 10/07/2022 6:08 PM [facility] Bilirubin Total 1.0 0.2 - 1.2 mg/dL 10/07/2022 6:08 PM [facility] Alkaline Phosphatase 98 40 - 150 U/L 10/07/2022 6:08 PM [facility] ALT 40 5 - 55 U/L 10/07/2022 6:08 PM [facility] AST 23 5 - 34 U/L 10/07/2022 6:08 PM [facility] Anion Gap 16 8 - 18 10/07/2022 6:08 PM [facility] BUN/Creatinine Ratio 21 7 - 23 10/07/2022 6:08 PM [facility] Osmolality Calculated 288 270 - 300 mOsm/kg 10/07/2022 6:08 PM [facility] Albumin/Globulin Ratio 1.1 1.1 - 2.3 10/07/2022 6:08 PM [facility] eGFR by CKD-EPI >90 >=90 mL/min/1.7 3 m2 10/07/2022 6:08 PM CDT [facility] Blood BLOOD SPECIMEN / Unknown Venipuncture / Unknown 10/07/2022 5:34 PM CDT 10/07/2022 5:40 PM CDT Bharati Delaney PA-C LAB - CHEMISTRY ZI CRAWFORD Performing Organization Address City/[facility]/ZIP Co de Phone Number [facility] [address] [place] [address], [place] [phone] * (ABNORMAL) HEMOGLOBIN A1C (07/26/2022 3:44 AM CDT) Hemoglobin A1c 6.3(H) <=5.6 % 07/26/2022 11:04 AM T [facility] Estimated Average Glucose 134 mg/dL 07/26/2022 11:04 AM T [facility] Comment: HbA1c Interpretation: Normal : < 5.7% Pre-diabetes: 5.7-6.4% Diabetes: Equal to or greater than 6.5% Test results diagnostic of diabetes should be repeated for confirmation. Treatment target values recommended by ADA and other clinical organizations should be used to evaluate metabolic control in patients. Reference: [place] [employer], Standards of Care in Diabetes [...] Gray MD LAB - CHEMISTRY [place] [facility] [address] [place] [address], [place] [phone] from Last 3 Months or Most Recently [...] 5:54 PM 09/22/2021 10:49 AM Care Teams Editorial Assistant Relationship Specialty Start Date End Date Pankaj Rosenberg MD [address] [address] PCP - General 10/06/21
--- OUTSIDE RECORDS SUMMARY | 2024-05-13 11:41 | XMS_ITS | Encounter Summary ---
Author Organization [facility] Address [address] [facility] [place] [address] Care Team Providers Care Interactive Media Marketing Specialist Name Role Phone Pankaj Rosenberg MD Primary Care Provider [phone] Reason for Visit * Auth/Cert (Routine) Specialty Diagnoses / Procedures Referred By Horacio espinoza Referred To Contact Diagnoses Gallbladder polyp Gallbladder polyp Procedures LAPAROSCOPIC CHOLECYSTECTOMY Referral ID Status Reason Start Date Expiration Date Visits Re quested Visits Authorized [id number] 1 1 Encounter Details Date Type Department Care Team (Late st Contact Info) Description 07/13/2022 7:30 AM AMORTIZATION SCHEDULE CLERK - 07/13/2022 9:52 AM AMORTIZATION SCHEDULE CLERK Surgery [facility] [address] [place] [address] Carolyn Miles MD [address] [place] [address] LAPAROSCOPIC CHOLECYSTECTOMY Surgery Details Date/Time Status Location OR Service Patient Class Case Class Case Type Trauma Case? 07/13/2022 7:[address] [facility] OR OR 14 General Surgery Day [...] Comments Blood Pressure 114/80 07/13/2022 9:50 AM AMORTIZATION SCHEDULE CLERK Pulse 98 07/13/2022 9:50 AM AMORTIZATION SCHEDULE CLERK Temperature 37.3 ??C (99.1 ??F) 07/13/2022 9:40 AM CS T Respiratory Rate 20 07/13/2022 9:50 AM AMORTIZATION SCHEDULE CLERK Oxygen Saturation 99% 07/13/2022 9:50 AM AMORTIZATION SCHEDULE CLERK Inhaled Oxygen Concentration - - Weight 121.2 kg (267 lb 4.8 oz) 07/13/2022 6:01 AM AMORTIZATION SCHEDULE CLERK Height 180.3 cm (5' 11 ) 07/13/2022 6:01 AM AMORTIZATION SCHEDULE CLERK Body Mass Index 37.28 07/13/2022 6:01 AM AMORTIZATION SCHEDULE CLERK documented in this encounter Functional Status Functional [...] without long-term current use of insulin ([facility]) 06/16/2021 last A1C 5.6 [...] for input(s): INR, PTT in the last 20375 hours. Radiology Impressions: U/S 08/18/2021- found in [...] Owusu, PGY-1 General Surgery 07/12/2022 6:06 AM TIZATION SCHEDULE CLERK Associated attestation - Carolyn Miles MD - 07/13/2022 7:07 AM AMORTIZATION SCHEDULE CLERK I have seen and examined the patient [...] Jessica Vogel MD - Resident - Assisting Brusher Machine(s): Dylan MS3 Anesthesia Type: general ETT Complications: none Findings: Small gallbladder, no inflammation, no cystic artery identified EBL: minimal blood loss Urine Output : None IV Fluid Intake: per anesthesia Drains: None Specimen(s): ID Type Source Tests Collected by Time Destination A : GALLBLADDER Resection without Tumor Gallbl[place] [id number] Implant(s): None Serena Farmer MD TIZATION SCHEDULE CLERK * Operative - Carolyn Miles MD - [...] The cystic plate was cleared more than detention up the gallbladder. There was a single [...] PACU. Carolyn Miles MD 07/13/2022 9:08 AM TIZATION SCHEDULE CLERK documented in this encounter Miscellaneous Notes * Clinical References AVS - Mounika Luke RN - 07/13/2022 10:54 AM AMORTIZATION SCHEDULE CLERK [id number] Discharge Instructions for Laparoscopic Gallbladder Removal Surgery [...] Leg swelling Last Reviewed Date: 2021 ?? 1554-1550 [employer]. All rights reserved. This information is not intended as a substitute for professional medical care. Always follow your healthcare professional's instructions. TIZATION SCHEDULE CLERK documented in this encounter Plan of Treatment Not on file documented as of this encounter Procedures Procedure Name Priority Date/Time Associated Diagnosis Comments GLUCOSE - POINT OF CARE Routine 07/13/2022 9:54 AM AMORTIZATION SCHEDULE CLERK PATHOLOGY TISSUE Routine 07/13/2022 9:02 AM AMORTIZATION SCHEDULE CLERK Gallbladder polyp NE LAP,CHOLECYSTECTO MY 07/13/2022 7:53 AM AMORTIZATION SCHEDULE CLERK Gallbladder polyp Special Needs SUPINE 2/20am TYPE + SCREEN PANEL ISAAC 07/13/2022 6:35 AM AMORTIZATION SCHEDULE CLERK Pre-op exam GLUCOSE - POINT OF CARE Routine 07/13/2022 6:16 AM AMORTIZATION SCHEDULE CLERK documented in this encounter Results * (ABNORMAL) GLUCOSE - POINT OF CARE (07/13/2022 9:54 AM AMORTIZATION SCHEDULE CLERK) Glucose WB/POC 154(H) 70 - 115 mg/dL 07/13/2022 10:00 AM AMORTIZATION SCHEDULE CLERK [facility] Specimen Type Cap Fingerstick 2022 10:00 AM AMORTIZATION SCHEDULE CLERK [facility] Blood BLOOD SPECIMEN / Unknown 07/13/2022 9:54 AM AMORTIZATION SCHEDULE CLERK 07/13/2022 10:00 AM AMORTIZATION SCHEDULE CLERK Carolyn Miles MD LAB - POINT OF CARE ORDERABLES Performing Organization Address [facility]/State/[facility] Co de Phone Number [facility] [address] [place] [address], [facility] [phone] * PATHOLOGY TISSUE (07/13/2022 9:02 AM AMORTIZATION SCHEDULE CLERK) Case Report Surgical Pathology Report ? Case: [id number] ? Authorizing Provider: ??Carolyn Miles MD ? Collected: ? 07/13/2022 09:02 AM ? Ordering Location: ? [facility] ?Received: ?07/13/2022 10:25 AM ? Pathologist: ? Gene Guardado MD ? Specimen: ?Gallbladder, GALLBLADDER ? 07/16/2022 1:33 PM [facility] PATHOLOGY LAB Final Diagnosis Gallbladder, cholecystectomy (A): - Mild chronic cholecystitis 07/16/2022 1:33 PM [facility] PATHOLOGY LAB Microscopic Description and Comment Microscopic examination substantiates the final diagnosis. No polyp identified grossly. 07/16/2022 1:33 PM [facility] PATHOLOGY LAB Clinical History The patient is is a 27 year old male who presents with hx of gallbladder polyps recently getting larger on last ultrasound. The patient underwent cholecystectomy 07/16/2022 1:33 PM [facility] PATHOLOGY LAB Gross Description Requisition and specimen [...] wall thickness is up to 0.2 cm. Looping Machine Operator section is submitted in cassette [id number]. /MA Additional sections are submitted in cassettes A3. /ME 07/16/2022 1:33 PM [facility] PATHOLOGY LAB Disclaimer The performance characteristics of all immunohistochemical and indirect immunofluorescence stains (if any) cited in this report were determined by the Histopathology Laboratory of [facility]. Some of these tests were [...] the attending (teaching) pathologist. 07/16/2022 1:33 PM AMORTIZATION SCHEDULE CLERK [facility] PATHOLOGY LAB Embedded Images 07/16/2022 1:33 PM [facility] PATHOLOGY LAB Resection without Tumor ENTIRE GALLBLADDER / Unknown 07/13/2022 9:02 AM AMORTIZATION SCHEDULE CLERK 07/13/2022 10:25 AM AMORTIZATION SCHEDULE CLERK Comment:Pre-op diagnosis: Gallbladder polyp Carolyn Miles MD LAB - PATHOLOGY/CYTO LOGY ORDERABLES Performing Organization Address City/[facility]/ZIP Co de Phone Number [facility] PATHOLOGY LAB [address] [facility] [place] [address], [facility] [phone] * TYPE + SCREEN PANEL (07/13/2022 6:35 AM AMORTIZATION SCHEDULE CLERK) Antibody Screen NEG 7:27 AM [facility] B[facility]OD [facility] LAB ABO Rh O POS 07/13/2022 7:27 AM [facility] Blood Bank BLOOD SPECIMEN / Unknown Venipuncture / Unknown 07/13/2022 6:35 AM AMORTIZATION SCHEDULE CLERK 07/13/2022 6:47 AM AMORTIZATION SCHEDULE CLERK Marla Richard DENTAL INSTRUMENT MAKER-CLOTH SHADER LAB - BLOOD BANK ORDERABLES Performing Organization Address [facility]/ZIP Co de Phone Number [facility] [address] [place] [phone], [facility] [phone] * (ABNORMAL) GLUCOSE - POINT OF CARE (07/13/2022 6:16 AM AMORTIZATION SCHEDULE CLERK) Glucose WB/POC 139(H) 70 - 115 mg/dL 07/13/2022 6:20 AM AMORTIZATION SCHEDULE CLERK [facility] Specimen Type Venous 07/13/2022 6:20 AM AMORTIZATION SCHEDULE CLERK [facility] Blood BLOOD SPECIMEN / Unknown 07/13/2022 6:16 AM AMORTIZATION SCHEDULE CLERK 07/13/2022 6:20 AM AMORTIZATION SCHEDULE CLERK Carolyn Miles MD LAB - POINT OF CARE ORDERABLES [facility] [address] [place] [address], [facility] [phone] documented in this encounter Visit Diagnoses Diagnosis [...] 0944, Intra-op $ Given 07/13/2022 8:38 AM AMORTIZATION SCHEDULE CLERK 10.5 mL dexAMETHasone (Decadron) injection 4 mg 4 mg, Intravenous, ONCE PRN, Nausea/Vomiting, 1 dose, Starting on Tue07/13/22 at 0955, Until Tue07/13/22 at 1227, Third choice, use if first and second choice was ineffective., PACU EPINEPHrine 1 MG/ML injection PRN, Starting on Tue07/13/22 at 0839, Until Tue07/13/22 at 0944, Intra-op $ Given 07/13/2022 8:39 AM AMORTIZATION SCHEDULE CLERK 0.105 mcg fentaNYL (PF) (Sublimaze) injection 25 [...] MAR., PACU $ Given 07/13/2022 10:15 AM AMORTIZATION SCHEDULE CLERK 25 mcg $ Given 07/13/2022 10:00 AM AMORTIZATION SCHEDULE CLERK 25 mcg fentaNYL (PF) (Sublimaze) injection 50 [...] at 1227, Pre-op Restarted 07/13/2022 7:24 AM AMORTIZATION SCHEDULE CLERK $ New Bag/Syringe 07/13/2022 6:58 AM AMORTIZATION SCHEDULE CLERK 20 mL/ hr lidocaine PF (Xylocaine MPF) 1 % injection PRN, Starting on Tue07/13/22 at 0839, Until Tue07/13/22 at 0944, Intra-op $ Given 07/13/2022 8:39 AM AMORTIZATION SCHEDULE CLERK 10.5 mL naloxone (Narcan) injection 0.04 mg [...] the MAR. $ Given 07/13/2022 10:46 AM AMORTIZATION SCHEDULE CLERK 5 mg prochlorperazine (Compazine) injection 10 mg 10 mg, Intravenous, ONCE PRN, Nausea/Vomiting, 1 dose, Starting on Tue07/13/22 at 0955, Until Tue07/13/22 at 1227, First choice, PACU throat lozenge 1 lozenge 1 lozenge, Oral, EVERY 1 HOUR PRN, Sore Throat, Starting on Tue07/13/22 at 0955, Until Tue07/13/22 at 1227, PACU documented in this encounter Active and Recently Administered Medications Times are shown in AMORTIZATION SCHEDULE CLERK. Scheduled Medication Order 07/11/2022 07/12/2022 07/13/2022 naloxone [...] PACU documented in this encounter Care Teams Interactive Media Marketing Specialist Relationship Specialty Start Date End Date Pankaj Rosenberg MD [address] [facility] [address] [place] [address] PCP - General 10/06/21 documented as of this encounter
--- OUTSIDE RECORDS SUMMARY | 2024-05-13 11:41 | XMS_ITS | Encounter Summary ---
Author Organization [facility] Address [address] [place] [address] Care Team Providers Care Supervisor Roving Name Role Phone Pankaj Rosenberg MD Primary Care Provider [phone] Encounter Details Date Type Department Care Team (Latest Contact Info) Description 06/29/2022 2:47 PM COST AND SALES RECORD SUPERVISOR - 06/29/2022 11:59 PM [facility] Hospital Encounter [facility] LAB OP DRAW STATION [address] [place] [address] Carolyn Miles MD [address] [place] [address] Discharge Disposition: Home or Self [...] SCREEN PANEL Routine 06/29/2022 3 :04 PM COST AND SALES RECORD SUPERVISOR Pre-op evaluation CBC W/O DIFFERENTIAL Routine 06/29/2022 3:04 PM COST AND SALES RECORD SUPERVISOR Pre-op evaluation BASIC METABOLIC PANEL (CALCIUM TOTAL) Routine 06/29/2022 3:04 PM COST AND SALES RECORD SUPERVISOR Pre-op evaluation documented in this encounter Results * TYPE + SCREEN PANEL (06/29/2022 3:04 PM COST AND SALES RECORD SUPERVISOR) Pathologist [facility] Antibody Screen NEG 3 4:02 PM COST AND SALES RECORD SUPERVISOR [facility] LAB ABO Rh O POS 06/29/2022 4:02 PM COST AND SALES RECORD SUPERVISOR [facility] Blood Bank BLOOD SPECIMEN / Unknown Lab Venipuncture / Unknown 06/29/2022 3:04 PM COST AND SALES RECORD SUPERVISOR 06/29/2022 3:07 PM COST AND SALES RECORD SUPERVISOR Marla Richard PERSONAL LINES UNDERWRITER-DENTAL SCHEDULING COORDINATOR LAB - BLOOD BANK ORDERABLES [facility] LAB [address] [place] [address], [facility] [phone] * (ABNORMAL) CBC W/O DIFFERENTIAL (06/29/2022 3:04 PM COST AND SALES RECORD SUPERVISOR) Pathologist [facility] WBC 9.6 3.5 - 10.5 10? 3 /uL 06/29/2022 3:31 PM COST AND SALES RECORD SUPERVISOR [facility] RBC 5.15 4.30 - 5.70 10? 6 /uL 06/29/2022 3:31 PM [facility] Hemoglobin 13.5 12.0 - 17.6 g/dL 06/29/2022 3:31 PM [facility] Hematocrit 41.7 35.2 - 51.7 % 06/29/2022 3:31 PM [facility] MCV 81.0 80.7 - 98.3 fL 06/29/2022 3:31 PM [facility] MCH 26.2(L) 26.7 - 34.0 pg 06/29/2022 3:31 PM [facility] MCHC 32.4 30.8 - 35.9 g/dL 06/29/2022 3:31 PM [facility] RDW-SD 40.5 36.0 - 50.0 fL 06/29/2022 3:31 PM [facility] RDW-CV 14.0 11.2 - 14.8 % 06/29/2022 3:31 PM [facility] Platelet Count 359 150 - 400 10? 3 /uL 06/29/2022 3:31 PM [facility] MPV 10.3 9.4 - 12.9 fL 06/29/2022 3:31 PM [facility] nRBC Absolute 0.00 0 10? 3 /uL 06/29/2022 3:31 PM [facility] nRBC Auto 0.0 0 /100 WBC 06/29/2022 3:31 PM [facility] Blood BLOOD SPECIMEN / Unknown Lab Venipuncture / Unknown 06/29/2022 3:04 PM COST AND SALES RECORD SUPERVISOR 06/29/2022 3:26 PM [facility] Marla Richard PERSONAL LINES UNDERWRITER-DENTAL SCHEDULING COORDINATOR LAB - HEMATOLOGY ORDERABLES [facility] [address] [place] [address], [facility] [phone] * (ABNORMAL) BASIC METABOLIC PANEL (CALCIUM TOTAL) (06/29/2022 3:04 PM COST AND SALES RECORD SUPERVISOR) BUN 11 7 - 26 mg/dL 06/29/2022 3:52 PM [facility] Creatinine 0.63(L) 0.71 - 1.16 mg/dL 06/29/2022 3:52 PM [facility] Sodium 139 136 - 145 mmol/L 06/29/2022 3:52 PM [facility] Potassium 4.0 3.5 - 4.5 mmol/L 06/29/2022 3:52 PM [facility] Chloride 105 98 - 107 mmol/L 06/29/2022 3:52 PM [facility] CO2 23 22 - 29 mmol/L 06/29/2022 3:52 PM [facility] Glucose 150(H) 70 - 115 mg/dL 06/29/2022 3:52 PM [facility] Calcium 9.7 8.4 - 10.2 mg/dL 06/29/2022 3:52 PM [facility] Anion Gap 15 8 - 18 06/29/2022 3:52 PM [facility] BUN/Creatinine Ratio 17 7 - 23 06/29/2022 3:52 PM [facility] Osmolality Calculated 290 270 - 300 mOsm/kg 06/29/2022 3:52 PM [facility] eGFR by CKD-EPI >90 >=90 mL/min/1.7 3 m2 06/29/2022 3:52 PM [facility] Blood BLOOD SPECIMEN / Unknown Lab Venipuncture / Unknown 06/29/2022 3:04 PM COST AND SALES RECORD SUPERVISOR 06/29/2022 3:26 PM [facility] Marla Richard PERSONAL LINES UNDERWRITER-DENTAL SCHEDULING COORDINATOR LAB - CHEMISTRY ORDERABLES Performing Organization Address [facility]/ZIP Co de Phone Number [facility] [address] [place] [address] [phone] documented in this encounter Visit Diagnoses Diagnosis Pre-op evaluation Preoperative examination, unspecified documented in this encounter Care Teams Supervisor Roving Relationship Specialty Start Date End Date Pankaj Rosenberg MD [address] [facility] [address] [place] [address] PCP - General 10/06/21 documented as of this encounter
--- OUTSIDE RECORDS SUMMARY | 2024-05-13 11:41 | XMS_ITS | Referral Summary ---
Author Organization [facility] Address [address] [place] [address] Care Team Providers Care In Flight Refueling System Repairer Name Role Phone Pankaj Rosenberg MD Primary Care Provider [phone] Source Comments [facility],non-owned Affiliates and Associated Physician Practices is amultiple site organization consisting of ambulatory clinics and hospital sitesin [place], [place], [place] and [place]. This disclosure is being madepursuant to the Care Everywhere program and may not contain all information available regarding this patient. Last updated 18.[facility] [employer] Allergies No known active allergies Medications * [...] gently Restart Allergy medications once cleared by Data Integrity Consultant PROCEDURE PERFORMED: Septoplasty Submucosal Reduction of Inferior Turbinates bilaterally Last Assessment & Plan: Continue nasal saline 2-3 times per day May blow nose gently Restart Allergy medications once cleared by Data Integrity Consultant PROCEDURE PERFORMED: Septoplasty Submucosal Reduction of Inferior [...] surgery. Added automatically from request for surgery [id number] Allergic rhinitis 10/22/2019 Overview (09/16/2021): Last Assessment & Plan: Continue nasal saline 2-3 times per day May blow nose gently Restart Allergy medications once cleared by Data Integrity Consultant Last Assessment & Plan: Continue nasal saline 2-3 times per day May blow nose gently Restart Allergy medications once cleared by Data Integrity Consultant Elbow problem 09/10/2013 Insomnia 09/10/2013 Resolved Problems [...] and heating? Not hard at all 07/27/2022 [facility] [place] of Occupat ional Health - Occupational Stress [...] place to sleep or slept in a retirement (including now)? No 07/27/2022 Sex and Gender [...] 7 - 26 mg/dL 10/07/2022 6:08 PM [facility] Creatinine 0.76 0.71 - 1.16 mg/dL 10/07/2022 6:08 PM [facility] Sodium 138 136 - 145 mmol/L 10/07/2022 6:08 PM [facility] Potassium 4.3 3.5 - 4.5 mmol/L 10/07/2022 6:08 PM [facility] Chloride 103 98 - 107 mmol/L 10/07/2022 6:08 PM [facility] CO2 23 22 - 29 mmol/L 10/07/2022 6:08 PM [facility] Glucose 116(H) 70 - 115 mg/dL 10/07/2022 6:08 PM [facility] Calcium 10.5(H) 8.4 - 10.2 mg/dL 10/07/2022 6:08 PM [facility] Protein Total 8.7(H) 6.0 - 8.3 g/dL 10/07/2022 6:08 PM [facility] Albumin 4.5 3.4 - 5.0 g/dL 10/07/2022 6:08 PM [facility] Bilirubin Total 1.0 0.2 - 1.2 mg/dL 10/07/2022 6:08 PM [facility] Alkaline Phosphatase 98 40 - 150 U/L 10/07/2022 6:08 PM [facility] ALT 40 5 - 55 U/L 10/07/2022 6:08 PM [facility] AST 23 5 - 34 U/L 10/07/2022 6:08 PM [facility] Anion Gap 16 8 - 18 10/07/2022 6:08 PM [facility] BUN/Creatinine Ratio 21 7 - 23 10/07/2022 6:08 PM [facility] Osmolality Calculated 288 270 - 300 mOsm/kg 10/07/2022 6:08 PM [facility] Albumin/Globulin Ratio 1.1 1.1 - 2.3 10/07/2022 6:08 PM [facility] eGFR by CKD-EPI >90 >=90 mL/min/1.7 3 m2 10/07/2022 6:08 PM [facility] Blood BLOOD SPECIMEN / Unknown Venipuncture / Unknown 10/07/2022 5:34 PM CDT 10/07/2022 5:40 PM T Bharati Delaney PA-C LAB - CHEMISTRY ORD ERABLES [facility] [address] [place] [address], [facility] [phone] * (ABNORMAL) HEMOGLOBIN A1C (07/26/2022 3:44 AM [facility]) Hemoglobin A1c 6.3(H) <=5.6 % 07/26/2022 11:04 AM [facility] Estimated Average Glucose 134 mg/dL 07/26/2022 11:04 AM [facility] Comment: HbA1c Interpretation: Normal : < 5.7% Pre-diabetes: 5.7-6.4% Diabetes: Equal to or greater than 6.5% Test results diagnostic of diabetes should be repeated for confirmation. Treatment target values recommended by ADA and other clinical organizations should be used to evaluate metabolic control in patients. Reference: [place] [employer], Standards of Care in Diabetes [...] Gray MD LAB - CHEMISTRY [place] [facility] Organization Address City/State/ZIP Co de Phone Number [facility] [address] [place] [address], [facility] [phone] from Last 3 Months or Most Recently [...] 5:54 PM 09/22/2021 10:49 AM Care Teams In Flight Refueling System Repairer Relationship Specialty Start Date End Date Pankaj Rosenberg MD [address] [address] PCP - General 10/06/21
--- OUTSIDE RECORDS SUMMARY | 2024-05-13 11:41 | XMS_ITS | Encounter Summary ---
Author Organization [facility] Address [address] [place] [address] Care Team Providers Care Asp Developer Name Role Phone Pankaj Rosenberg MD Primary Care Provider [phone] Reason for Visit * Reason Comments Pain [...] Expiration Date Visits Re quested Visits Authorized [id number] 1 1 Encounter Details Date Type Department Care Team (Late st Contact Info) Description 10/07/2022 11:32 PM CDT - 10/08/2022 3:17 PM CDT Emergency [facility] EMERGENCY DEPARTMENT [address] [place] [phone] Carolyn Houston MD [address] [facility] [place] [address] Julio Irwin MD [address] OF [facility] [place] [address] Small bowel obstruction, partial (HCC) (Primary Dx); [...] and heating? Not hard at all 07/27/2022 [place] of Occupat ional Health - Occupational Stress [...] place to sleep or slept in a intermediate (including now)? No 07/27/2022 Sex and Gender [...] Tommy Burr, - 10/08/2022 2:07 PM CDT [facility] INTERNAL MEDICINE DISCHARGE [...] our surgery team in 1-week to discuss intermediate accountant options for recurrent bouts of bowel obstruction. [...] is seen. > Dictated by MD Gwendolyn (orthodontist vice president). I, Adriel Rosen MD have personally reviewed [...] medications, please ask the pharmacy when you picker and sorter load and unload your prescription. You may also call your [...] in your care!? ? Internal Medicine Team? [facility] [address]? [place] [address]? Signed: Tommy Burr DO Internal Medicine Resident [facility] 10/08/2022 2:08 PM documented in this encounter [...] medications, please ask the pharmacy when you picker and sorter load and unload your prescription. You may also call your [...] in your care!? ? Internal Medicine Team? [address]? [place] [address]? documented in this encounter Medications at Time [...] Burgess MD - 10/08/2022 4:51 AM CDT [facility] INTERNAL MEDICINE HISTORY [...] use of insulin ([facility]) 06/16/2021 last A1C 5.6 1 month ago [...] No Stress: No Stress Concern Present (07/27/2022) [place] of Occupational Health - Occupational Stress Questionnaire [...] physician. Devang Burgess MD Internal Medicine Resident [facility] - [facility] 10/08/2022 5:31 AM Associated attestation - Julio [...] use of insulin ([facility]) 06/16/2021 last A1C 5.6 1 month ago [...] is seen. > Dictated by MD Gwendolyn (orthodontist vice president). I, Adriel Rosen MD have personally reviewed [...] use of insulin ([facility]) 06/16/2021 last A1C 5.6 1 month ago [...] No Stress: No Stress Concern Present (07/27/2022) [place] of Occupational Health - Occupational Stress Questionnaire [...] DATE/TIME OF EXAM: 10/07/2022 7:19 PM, LOCATION [facility] INDICATION: R10.84: Abdominal pain, generalized ADDITIONAL CLINICAL [...] seen. > Dictated by Adelita Pruitt MD (orthodontist vice president). I, Adriel Rosen MD have personally reviewed and interpreted this examination/study. > Interpreting Provider: Adriel Rosen MD on 10/08/2022 1:45 AM Medications iopamidol (Isovue 370) 76 % contrast (100 mL Intravenous $ Given - Contrast 10/07/22 1909) droPERidol (Inapsine) injection 1.25 mg (1.25 mg [...] No Stress: No Stress Concern Present (07/27/2022) [place] of Occupational Health - Occupational Stress Questionnaire [...] partial SBO vs ileus and pain control. -[id number] -Medicine has assumed care of pt at [...] MD - 10/07/2022 11:32 PM CDT Bed: [facility] Expected date: Expected time: Means of [...] use of insulin ([facility]) 06/16/2021 last A1C 5.6 1 month ago [...] once daily No Known Allergies PCP: Pankaj oRsenberg MD (Above may be pending completion) Review [...] Type Cap Fingerstick 05/26/ 2023 2:55 PM [facility] Blood BLOOD SPECIMEN / Unknown 10/08/2022 2:50 PM CDT 10/08/2022 2:55 PM CDT Julio Irwin MD LAB - POINT OF CARE ORDERABLES [facility] [address] [place] [address], [facility] [phone] * (ABNORMAL) URINALYSIS REFLEX TO MICROSCOPIC NO CULTURE (10/08/2022 8:51 AM T) Color UA Yellow Straw, Yellow 10/08/2022 9:07 AM [facility] Clarity UA Clear Clear 10/08/2022 9:07 AM [facility] Specific [place] UA 1.042(H) 1.005 - 1.030 10/08/2022 9:07 AM [facility] pH UA 5.0 5.0 - 8.0 pH 10/08/2022 9:07 AM [facility] Protein UA Negative Negative 10/08/2022 9:07 AM [facility] Glucose UA Negative Negative 10/08/2022 9:07 AM [facility] Ketone UA 1+(A) Negative 10/08/2022 9:07 AM [facility] Bilirubin UA Negative Negative 10/08/2022 9:07 AM [facility] Blood UA Negative Negative 10/08/2022 9:07 AM [facility] Nitrite UA Negative Negative 10/08/2022 9:07 AM [facility] Leukocyte Esterase Negative Negative 10/08/2022 9:07 AM [facility] Urobilinogen UA Negative Negative mg/dL 10/08/2022 9:07 AM [facility] RBC UA 0-2 None Seen, 0-2, 3-5 /HPF 10/08/2022 9:07 AM [facility] WBC UA 0-5 None Seen, 0-5 /HPF 10/08/2022 9:07 AM [facility] Squamous Epithelial Cells UA None Seen None Seen, 0-2, 3-5 /HPF 10/08/2022 9:07 AM CDT [facility] Mucus UA 1+ /LPF 10/08/2022 9:07 AM CDT [facility] Urine URINE SPECIMEN OBTAINED BY CLEAN CATCH PROCEDURE / Unknown Collection / Unknown 10/08/2022 8:51 AM CDT 10/08/2022 8:59 AM CDT Narrative [facility] - 10/08/2022 9:07 AM CDT Guillermina Gamez PA-C LAB - URINALYSIS OR DERABLES [address] [address], [place] [phone] * GLUCOSE - POINT OF CARE (10/08/2022 8:45 AM CDT) Glucose WB/POC 114 70 - 115 mg/dL 10/08/2022 8:54 AM CDT [facility] Specimen Type Cap Fingerstick 2022 8:54 AM CDT [facility] Blood BLOOD SPECIMEN / Unknown 10/08/2022 8:45 AM CDT 10/08/2022 8:54 AM CDT Julio Irwin MD LAB - POINT OF CARE ORDERABLES [address] [address], [place] [phone] * CT ABDOMEN PELVIS W CONTRAST (10/07/2022 [...] seen. > Dictated by Adelita Pruitt MD (orthodontist vice president). I, Adriel Rosen MD have personally reviewed and interpreted this examination/study. > Interpreting Provider: Adriel Rosen MD on 10/08/2022 1:45 AM Narrative 10/08/2022 1:45 AM CDT PROCEDURE: ??CT ABDOMEN PELVIS W CONTRAST, DATE/TIME OF EXAM: ??10/07/2022 7:19 PM, LOCATION ??[facility] INDICATION: R10.84: Abdominal pain, generalized ADDITIONAL CLINICAL [...] DATE/TIME OF EXAM: 10/07/2022 7:19 PM, LOCATION [facility] INDICATION: R10.84: Abdominal pain, generalized ADDITIONAL CLINICAL [...] seen. > Dictated by Adelita Pruitt MD (orthodontist vice president). I, Adriel Rosen MD have personally reviewed [...] Gamez PA-C LAB - CHEMISTRY ORD ERABLES [facility] [address] [place] [address], [facility] [phone] * (ABNORMAL) COMPREHENSIVE METABOLIC PANEL (10/07/2022 5:34 PM CDT) BUN 16 7 - 26 mg/dL 10/07/2022 6:08 PM [facility] Creatinine 0.76 0.71 - 1.16 mg/dL 10/07/2022 6:08 PM [facility] Sodium 138 136 - 145 mmol/L 10/07/2022 6:08 PM [facility] Potassium 4.3 3.5 - 4.5 mmol/L 10/07/2022 6:08 PM [facility] Chloride 103 98 - 107 mmol/L 10/07/2022 6:08 PM [facility] CO2 23 22 - 29 mmol/L 10/07/2022 6:08 PM [facility] Glucose 116(H) 70 - 115 mg/dL 10/07/2022 6:08 PM [facility] Calcium 10.5(H) 8.4 - 10.2 mg/dL 10/07/2022 6:08 PM [facility] Protein Total 8.7(H) 6.0 - 8.3 g/dL 10/07/2022 6:08 PM [facility] Albumin 4.5 3.4 - 5.0 g/dL 10/07/2022 6:08 PM [facility] Bilirubin Total 1.0 0.2 - 1.2 mg/dL 10/07/2022 6:08 PM [facility] Alkaline Phosphatase 98 40 - 150 U/L 10/07/2022 6:08 PM [facility] ALT 40 5 - 55 U/L 10/07/2022 6:08 PM [facility] AST 23 5 - 34 U/L 10/07/2022 6:08 PM [facility] Anion Gap 16 8 - 18 10/07/2022 6:08 PM [facility] BUN/Creatinine Ratio 21 7 - 23 10/07/2022 6:08 PM [facility] Osmolality Calculated 288 270 - 300 mOsm/kg 10/07/2022 6:08 PM [facility] Albumin/Globulin Ratio 1.1 1.1 - 2.3 10/07/2022 6:08 PM [facility] eGFR by CKD-EPI >90 >=90 mL/min/1.7 3 m2 10/07/2022 6:08 PM [facility] Blood BLOOD SPECIMEN / Unknown Venipuncture / Unknown 10/07/2022 5:34 PM CDT 10/07/2022 5:40 PM CDT Guillermina Gamez PA-C LAB - CHEMISTRY ORD ERABLES [facility] [address] [place] [address], [facility] [phone] * (ABNORMAL) CBC W AUTO DIFFERENTIAL (10/07/2022 5:34 PM CDT) WBC 12.0(H) 3.5 - 10.5 10? 3 /uL 10/07/2022 5:46 PM [facility] RBC 5.46 4.30 - 5.70 10? 6 /uL 10/07/2022 5:46 PM [facility] Hemoglobin 14.8 12.0 - 17.6 g/dL 10/07/2022 5:46 PM [facility] Hematocrit 43.8 35.2 - 51.7 % 10/07/2022 5:46 PM [facility] MCV 80.2(L) 80.7 - 98.3 fL 10/07/2022 5:46 PM [facility] MCH 27.1 26.7 - 34.0 pg 10/07/2022 5:46 PM [facility] MCHC 33.8 30.8 - 35.9 g/dL 10/07/2022 5:46 PM [facility] RDW-SD 40.0 36.0 - 50.0 fL 10/07/2022 5:46 PM [facility] RDW-CV 13.9 11.2 - 14.8 % 10/07/2022 5:46 PM [facility] Platelet Count 406(H) 150 - 400 10? 3 /uL 10/07/2022 5:46 PM [facility] MPV 10.2 9.4 - 12.9 fL 10/07/2022 5:46 PM [facility] nRBC Absolute 0.00 0 10? 3 /uL 10/07/2022 5:46 PM [facility] nRBC Auto 0.0 0 /100 WBC 10/07/2022 5:46 PM [facility] Neutrophils % 76.9(H) 35.0 - 70.0 % 10/07/2022 5:46 PM [facility] Lymphocytes % 17.2(L) 20.0 - 43.0 % 10/07/2022 5:46 PM [facility] Monocytes % 4.3(L) 5.0 - 13.0 % 10/07/2022 5:46 PM [facility] Eosinophils % 0.7 0.0 - 6.0 % 10/07/2022 5:46 PM [facility] Basophil % 0.5 0.0 - 2.0 % 10/07/2022 5:46 PM [facility] Neutrophils Absolute 9.22(H) 1.60 - 7.00 10? 3 /uL 10/07/2022 5:46 PM [facility] Lymphocyte Absolute 2.07 1.10 - 3.90 10? 3 /uL 10/07/2022 5:46 PM [facility] Monocytes Absolute 0.52 0.26 - 1.07 10? 3 /uL 10/07/2022 5:46 PM [facility] Eosinophils Absolute 0.09 0.00 - 0.47 10? 3 /uL 10/07/2022 5:46 PM [facility] Basophils Absolute 0.06 0.00 - 0.08 10? 3 /uL 10/07/2022 5:46 PM CDT [facility] Immature Granulocytes % 0.4 0.0 - 1.0 % 10/07/2022 5:46 PM CDT [facility] Immature Granulocytes Absolute 0.05 10/07/2022 5:46 PM CDT [facility] Blood BLOOD SPECIMEN / Unknown Venipuncture / Unknown 10/07/2022 5:34 PM CDT 10/07/2022 5:40 PM CDT Guillermina Gamez PA-C LAB - HEMATOLOGY OR DERABLES [facility] [address] [place] [id number], [facility] [phone] documented in this encounter Visit Diagnoses Diagnosis [...] EVENT. documented in this encounter Care Teams Asp Developer Relationship Specialty Start Date End Date Pankaj Rosenberg MD [address] [facility] [address] [place] [address] PCP - General 10/06/21 documented as of this encounter
--- OUTSIDE RECORDS SUMMARY | 2024-05-13 11:41 | XMS_ITS | Encounter Summary ---
Author Organization [facility] Address [address] [place] [address] Care Team Providers Care Home Health Aide Name Role Phone Pankaj Rosenberg MD Primary Care Provider [phone] Reason for Visit * Auth/Cert (Routine) Specialty Diagnoses / Procedures Referred By Horacio t Referred To Contact Diagnoses Gallbladder polyp Gallbladder polyp Procedures LAPAROSCOPIC CHOLECYSTECTOMY Referral ID Status Reason Start Date Expiration Date Visits Re quested Visits Authorized [id number] 1 1 Encounter Details Date Type Department Care Team (Late st Contact Info) Description 07/13/2022 7:25 AM WEB APPLICATION DEV SPECIALIST Anesthesia Event [facility] [address] [place] [address] Ramin Cuello MD [address] [place] [id number] Marla Richard, ETHNOLOGY PROFESSOR-OIM CONSULTANT [address] [facility] [address] Anesthesia Record Procedure Summary Procedure Name Responsible [...] no known notable events for this encounter. APPLICATION DEV SPECIALIST * Ramin Cuello MD - 06/29/2022 1:45 PM CST [...] Anesthetic Plan was discussed with the resident, assistant grocery store manager and PACKAGE LIFT OPERATOR. This evaluation was based on PAT clinic [...] OPTIMIZED - PAT EVALUATION COMPLETE Marla Richard, ETHNOLOGY PROFESSOR-OIM CONSULTANT 06/30/2022 9:01 AM for this procedure. Preoperative [...] for the 06/29/22 encounter (Hospital Encounter) with [facility] 1 Medication Sig Last Dose ??? [...] complication, without long-term current use of insulin ([facility]) Other (+) Nonalcoholic steatohepatitis Problem List: Patient Active Problem List Diagnosis Date Noted ??? Leukocytosis 03/21/2022 Priority: Not Prioritized ??? Partial small bowel obstruction ([facility]) 03/17/2022 Priority: Not Prioritized ??? [...] complication, without long-term current use of insulin ([facility]) 06/16/2021 Priority: Not Prioritized ??? [...] gently Restart Allergy medications once cleared by Aircraft Magneto Mechanic PROCEDURE PERFORMED: Septoplasty Submucosal Reduction of Inferior Turbinates bilaterally Last Assessment & Plan: Continue nasal saline 2-3 times per day May blow nose gently Restart Allergy medications once cleared by Aircraft Magneto Mechanic PROCEDURE PERFORMED: Septoplasty Submucosal Reduction of Inferior [...] surgery. Added automatically from request for surgery [id number] ??? Allergic rhinitis 10/22/2019 Priority: Not Prioritized Last Assessment & Plan: Continue nasal saline 2-3 times per day May blow nose gently Restart Allergy medications once cleared by Aircraft Magneto Mechanic Last Assessment & Plan: Continue nasal saline 2-3 times per day May blow nose gently Restart Allergy medications once cleared by Aircraft Magneto Mechanic ??? Elbow problem 09/10/2013 Priority: Not Prioritized ??? Insomnia 09/10/2013 Priority: Not Prioritized Medical History: Past Medical History: Diagnosis Date ??? Arthrogryposis 06/15/2021 ??? Controlled type 2 diabetes mellitus without complication, without long-term current use of insulin ([facility]) 06/16/2021 last A1C 5.6 1 month ago ??? Essential hypertension controlled with medication ??? GERD (gastroesophageal reflux disease) controlled with medication ??? 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 KARRIE (obstructive sleep apnea) 09/12/2021 Surgical History: Past Surgical History: Procedure Laterality Date ??? Laparotomy N/A 09/17/2021 N/A; LAPAROTOMY EXPLORATORY, BOWEL RESECTION, ENTROLYSIS ??? Small Bowel Resection BARREL LINER Status: No LMP for male patient. unknown OB History No obstetric history on file. Covid Vaccine: Lab Results: Recent Labs Base Name 03/21/22 0815 [id number] SPECIMENTYPE Cap Fingerstick Recent Labs Component [...] 17 (03/17/2022) eGFR by CKD-EPI >90 (06/29/2022) APPLICATION DEV SPECIALIST documented in this encounter Procedure Notes * Jenifer Coto Anes Asst - 07/13/2022 8:05 AM CSTAssociated Order(s): ETT Placement Endotracheal Tube Placement: Patient Location: OR. Intubation Event Date/Time: 07/13/2022 7:34 AM Procedure: intubation ([id number]). Procedure Section: Sedation: under general anesthesia. Indications [...] Jenifer Coto Anes Asst, Performed the procedure APPLICATION DEV SPECIALIST documented in this encounter Miscellaneous Notes * Addendum Note - Ramin Cuello MD - 07/13/2022 5:00 PM CST Addendum created 07/13/22 1700 by Ramin Cuello MD Intraprocedure Staff edited APPLICATION DEV SPECIALIST * Anesthesia Transfer of Care - Jenifer [...] report from the receiving PACUteam. Saman Orantes APPLICATION DEV SPECIALIST * Anesthesia Transfer of Care - Jenifer [...] report from the receiving PACUteam. Saman Orantes APPLICATION DEV SPECIALIST documented in this encounter Plan of Treatment Not on file documented as of this encounter Procedures Procedure Name Priority Date/Time Associated Diagnosis Comments ENDOTRACHEAL TUBE NOTE Routine 07/13/2022 8:05 AM WEB APPLICATION DEV SPECIALIST documented in this encounter Results * ETT LINE PERFORMABLE (07/13/2022 8:05 AM WEB APPLICATION DEV SPECIALIST) Narrative Jenifer Coto Anes Asst - 07/13/2022 8:05 AM WEB APPLICATION DEV SPECIALIST Jenifer Coto Anes Asst ? 07/13/2022 ??8:06 AM Endotracheal Tube Placement: ? Patient Location: OR. Intubation Event Date/Time: ??07/13/2022 7:34 AM Procedure: intubation ([id number]). Procedure Section: ?? Sedation: under general anesthesia. [...] Anesthesia Intra-op $ Given 07/13/2022 7:46 AM WEB APPLICATION DEV SPECIALIST 3 g dexmedeTOMIDine (Precedex) 80 mcg in 20 mL infusion Intravenous, PRN, Starting on Tue07/13/22 at 0750, Until Tue07/13/22 at 0948, Anesthesia Intra-op $ Given 07/13/2022 9:04 AM WEB APPLICATION DEV SPECIALIST 4 mcg $ Given 07/13/2022 8:31 AM WEB APPLICATION DEV SPECIALIST 8 mcg $ Given 07/13/2022 7:50 AM WEB APPLICATION DEV SPECIALIST 8 mcg fentaNYL (PF) (Sublimaze) injection Intravenous, PRN, Starting on Tue07/13/22 at 0731, Until Tue07/13/22 at 0948, Anesthesia Intra-op $ Given 07/13/2022 7:31 AM WEB APPLICATION DEV SPECIALIST 100 mcg HYDROmorphone HCl-NaCl 2-0.9 MG/10ML-% SOSY Intravenous, PRN, Starting on Tue07/13/22 at 0758, Until Tue07/13/22 at 0948, Anesthesia Intra-op $ Given 07/13/2022 7:58 AM WEB APPLICATION DEV SPECIALIST 0.5 mg $ Given 07/13/2022 7:49 AM WEB APPLICATION DEV SPECIALIST 0.5 mg lactated ringers infusion at 20 mL/hr, Intravenous, PRE-OP CONTINUOUS, Starting on Tue07/13/22 at 0545, Until Tue07/13/22 at 1227, Pre-op Restarted 07/13/2022 7:24 AM WEB APPLICATION DEV SPECIALIST $ New Bag/Syringe 07/13/2022 6:58 AM WEB APPLICATION DEV SPECIALIST 20 mL/ hr midazolam (Versed) injection Intravenous, PRN, Starting on Tue07/13/22 at 0725, Until Tue07/13/22 at 0948, Anesthesia Intra-op $ Given 07/13/2022 7:25 AM WEB APPLICATION DEV SPECIALIST 2 mg ondansetron (Zofran) injection Intravenous, PRN, Starting on Tue07/13/22 at 0908, Until Tue07/13/22 at 0948, Anesthesia Intra-op $ Given 07/13/2022 9:08 AM WEB APPLICATION DEV SPECIALIST 4 mg propofol (Diprivan) injection Intravenous, PRN, Starting on Tue07/13/22 at 0731, Until Tue07/13/22 at 0948, Anesthesia Intra-op $ Given 07/13/2022 9:29 AM WEB APPLICATION DEV SPECIALIST 50 mg $ Given 07/13/2022 7:31 AM WEB APPLICATION DEV SPECIALIST 200 mg rocuronium (Zemuron) injection Intravenous, PRN, Starting on Tue07/13/22 at 0731, Until Tue07/13/22 at 0948, Anesthesia Intra-op $ Given 07/13/2022 9:02 AM WEB APPLICATION DEV SPECIALIST 20 mg $ Given 07/13/2022 8:16 AM WEB APPLICATION DEV SPECIALIST 20 mg $ Given 07/13/2022 7:31 AM WEB APPLICATION DEV SPECIALIST 80 mg sugammadex (Bridion) injection Intravenous, PRN, Starting on Tue07/13/22 at 0931, Until Tue07/13/22 at 0948, Anesthesia Intra-op $ Given 07/13/2022 9:31 AM WEB APPLICATION DEV SPECIALIST 250 mg documented in this encounter Care Teams Home Health Aide Relationship Specialty Start Date End Date Pankaj Rosenberg MD [address] [address] PCP - General 10/06/21 documented as of this encounter
--- OUTSIDE RECORDS SUMMARY | 2024-05-13 11:41 | XMS_ITS | Encounter Summary ---
Author Organization [facility] Address [address] [facility] [place] [address] Care Team Providers Care Battery Plate Assembler Name Role Phone Pankaj Rosenberg MD Primary Care Provider [phone] Reason for Visit * Reason Onset Date Comments Results 07/19/2022 Encounter Details Date Type Department Care Team (Late st Contact Info) Description 07/19/2022 Telephone [facility] General [facility] [address] [place] [address] Carolyn Miles MD [address] [place] [address] Results (/) Social History Tobacco Use Types [...] check. Carolyn Miles MD 07/19/2022 9:23 AM ER MACHINE documented in this encounter Plan of Treatment Not on file documented as of this encounter Visit Diagnoses Not on filedocumented in this encounter Care Teams Battery Plate Assembler Relationship Specialty Start Date End Date Pankaj Rosenberg MD [address] [address] PCP - General 10/06/21 documented as of this encounter
--- OUTSIDE RECORDS SUMMARY | 2024-05-13 11:41 | XMS_ITS | Encounter Summary ---
Author Organization [facility] Address [address] [place] [address] Care Team Providers Care Usability Specialist Name Role Phone Pankaj Rosenberg MD Primary Care Provider [phone] Reason for Visit * Auth/Cert (Routine) Specialty Diagnoses / Procedures Referred By Horacio t Referred To Contact Diagnoses Gallbladder polyp Gallbladder polyp Procedures LAPAROSCOPIC CHOLECYSTECTOMY Referral ID Status Reason Start Date Expiration Date Visits Re quested Visits Authorized [id number] 1 1 Encounter Details Date Type Department Care Team (Latest Contact Info) Description 07/13/2022 5:27 AM ASIAN ART CURATOR - 07/13/2022 11:27 AM [facility] Hospital Encounter [facility] [address] [place] [address] Carolyn Miles MD [address] [place] [address] Surgery General Discharge Disposition: Home or Self [...] Comments Blood Pressure 117/72 07/13/2022 11:10 AM ASIAN ART CURATOR Pulse 90 07/13/2022 11:10 AM ASIAN ART CURATOR Temperature 37.1 ??C (98.7 ??F) 07/13/2022 1 0:39 AM ASIAN ART CURATOR Respiratory Rate 18 07/13/2022 11:1 0 AM ASIAN ART CURATOR Oxygen Saturation 94% 07/13/2022 11: 10 AM ASIAN ART CURATOR Inhaled Oxygen Concentration - - Weight 121.2 kg (267 lb 4.8 oz) 07/13/2022 6:01 AM ASIAN ART CURATOR Height 180.3 cm (5' 11 ) 07/13/2022 6:01 AM ASIAN ART CURATOR Body Mass Index 37.28 07/13/2022 6:01 AM ASIAN ART CURATOR documented in this encounter Functional Status Functional [...] current use of insulin ([facility]) 06/16/2021 last A1C 5.6 1 [...] for input(s): INR, PTT in the last 66022 hours. Radiology Impressions: U/S 08/18/2021- found in [...] DO PGY-1 General Surgery 07/12/2022 6:06 AM N ART CURATOR Associated attestation - Carolyn Miles MD - 07/13/2022 7:07 AM ASIAN ART CURATOR I have seen and examined the patient [...] Jessica Vogel MD - Resident - Assisting Refrigerator Car Icer(s): Dylan FL3 Anesthesia Type: general ETT Complications: none Findings: Small gallbladder, no inflammation, no cystic artery identified EBL: minimal blood loss Urine Output : None IV Fluid Intake: per anesthesia Drains: None Specimen(s): ID Type Source Tests Collected by Time Destination A : GALLBLADDER Resection without Tumor [place]bl[place] [id number] Implant(s): None Serena Farmer MD N ART CURATOR * Operative - Carolyn Miles MD - [...] The cystic plate was cleared more than mcc up the gallbladder. There was a single [...] PACU. Carolyn Miles MD 07/13/2022 9:08 AM N ART CURATOR documented in this encounter Miscellaneous Notes * Clinical References ARTURO - Mounika Luke RN - 07/13/2022 10:54 AM ASIAN ART CURATOR [id number] Discharge Instructions for Laparoscopic Gallbladder Removal Surgery [...] Leg swelling Last Reviewed Date: 2021 ?? [id number] [employer]. All rights reserved. This information is not intended as a substitute for professional medical care. Always follow your healthcare professional's instructions. N ART CURATOR documented in this encounter Plan of Treatment Not on file documented as of this encounter Procedures Procedure Name Priority Date/Time Associated Diagnosis Comments GLUCOSE - POINT OF CARE Routine 07/13/2022 9:54 AM ASIAN ART CURATOR PATHOLOGY TISSUE Routine 07/13/2022 9:02 AM ASIAN ART CURATOR Gallbladder polyp AZ LAP,CHOLECYSTECTO MY 07/13/2022 7:53 AM ASIAN ART CURATOR Gallbladder polyp Special Needs SUPINE 2/20am TYPE + SCREEN PANEL ISAAC 07/13/2022 6:35 AM ASIAN ART CURATOR Pre-op exam GLUCOSE - POINT OF CARE Routine 07/13/2022 6:16 AM ASIAN ART CURATOR documented in this encounter Results * (ABNORMAL) GLUCOSE - POINT OF CARE (07/13/2022 9:54 AM ASIAN ART CURATOR) Glucose WB/POC 154(H) 70 - 115 mg/dL 07/13/2022 10:00 AM ASIAN ART CURATOR [facility] Specimen Type Cap Fingerstick 2022 10:00 AM ASIAN ART CURATOR [facility] Blood BLOOD SPECIMEN / Unknown 07/13/2022 9:54 AM ASIAN ART CURATOR 07/13/2022 10:00 AM ASIAN ART CURATOR Carolyn Miles MD LAB - POINT OF CARE ORDERABLES Performing Organization Address [facility] de Phone Number [facility] [address] [place], [place] [address], [facility] [phone] * PATHOLOGY TISSUE (07/13/2022 9:02 AM ASIAN ART CURATOR) Pathologist [facility] Case Report Surgical Pathology Report ? Case: [id number] ? Authorizing Provider: ??Carolyn Miles MD ? Collected: ? 07/13/2022 09:02 AM ? Ordering Location: ? [facility] ?Received: ?07/13/2022 10:25 AM ? Pathologist: ? Gene Guardado MD ? Specimen: ?Gallbladder, GALLBLADDER ? 07/16/2022 1:33 PM [facility] Final Diagnosis Gallbladder, cholecystectomy (A): - Mild chronic cholecystitis 07/16/2022 1:33 PM [facility] Microscopic Description and Comment Microscopic examination substantiates the final diagnosis. No polyp identified grossly. 07/16/2022 1:33 PM [facility] Clinical History The patient is is a 27 year old male who presents with hx of gallbladder polyps recently getting larger on last ultrasound. The patient underwent cholecystectomy 07/16/2022 1:33 PM [facility] Gross Description Requisition [...] wall thickness is up to 0.2 cm. Exceptional Children'S Teacher section is submitted in cassette [id number]. /MA Additional sections are submitted in cassettes A3. /ME 07/16/2022 1:33 PM [facility] Disclaimer The performance characteristics of all immunohistochemical and indirect immunofluorescence stains (if any) cited in this report were determined by the Histopathology Laboratory of [facility]. Some of these tests were developed [...] the attending (teaching) pathologist. 07/16/2022 1:33 PM ASIAN ART CURATOR [facility] Embedded Images 07/16/2022 1:33 PM [facility] Resection without Tumor ENTIRE GALLBLADDER / Unknown 07/13/2022 9:02 AM ASIAN ART CURATOR 07/13/2022 10:25 AM ASIAN ART CURATOR Comment:Pre-op diagnosis: Gallbladder polyp Carolyn Miles MD LAB - PATHOLOGY/CYTO LOGY ORDERABLES Performing Organization Address City/[facility]/ZIP Co de Phone Number [facility] [address] [place] [address], [facility] [phone] * TYPE + SCREEN PANEL (07/13/2022 6:35 AM ASIAN ART CURATOR) Antibody Screen NEG 7:27 AM [facility] ABO Rh O POS 07/13/2022 7:27 AM [facility] Blood Bank BLOOD SPECIMEN / Unknown Venipuncture / Unknown 07/13/2022 6:35 AM ASIAN ART CURATOR 07/13/2022 6:47 AM ASIAN ART CURATOR Marla Richard APRN-SECTION HAND LAB - BLOOD BANK ORDERABLES Performing Organization Address [facility]/ZIP Co de Phone Number [facility] [address] [place] [address], [facility] [phone] * (ABNORMAL) GLUCOSE - POINT OF CARE (07/13/2022 6:16 AM ASIAN ART CURATOR) Glucose WB/POC 139(H) 70 - 115 mg/dL 07/13/2022 6:20 AM [facility] Specimen Type Venous 07/13/2022 6:20 AM [facility] Blood BLOOD SPECIMEN / Unknown 07/13/2022 6:16 AM ASIAN ART CURATOR 07/13/2022 6:20 AM ASIAN ART CURATOR Carolyn Miles MD LAB - POINT OF CARE ORDERABLES Performing Organization Address City/[facility]/ZIP Co de Phone Number [facility] [address] [place] [address], [place] [phone] documented in this encounter Visit Diagnoses Diagnosis [...] MAR., PACU $ Given 07/13/2022 10:15 AM ASIAN ART CURATOR 25 mcg $ Given 07/13/2022 10:00 AM ASIAN ART CURATOR 25 mcg fentaNYL (PF) (Sublimaze) injection 50 [...] at 1227, Pre-op Restarted 07/13/2022 7:24 AM ASIAN ART CURATOR $ New Bag/Syringe 07/13/2022 6:58 AM ASIAN ART CURATOR 20 mL/ hr naloxone (Narcan) injection 0.04 [...] the MAR. $ Given 07/13/2022 10:46 AM ASIAN ART CURATOR 5 mg prochlorperazine (Compazine) injection 10 mg 10 mg, Intravenous, ONCE PRN, Nausea/Vomiting, 1 dose, Starting on Tue07/13/22 at 0955, Until Tue07/13/22 at 1227, First choice, PACU throat lozenge 1 lozenge 1 lozenge, Oral, EVERY 1 HOUR PRN, Sore Throat, Starting on Tue07/13/22 at 0955, Until Tue07/13/22 at 1227, PACU documented in this encounter Active and Recently Administered Medications Times are shown in ASIAN ART CURATOR. Scheduled Medication Order 07/11/2022 07/12/2022 07/13/2022 naloxone [...] PACU documented in this encounter Care Teams Usability Specialist Relationship Specialty Start Date End Date Pankaj Rosenberg MD [address] [facility] [address] [place] [address] PCP - General 10/06/21 documented as of this encounter
--- OUTSIDE RECORDS SUMMARY | 2024-05-13 11:42 | XMS_ITS | Encounter Summary ---
Author Organization [facility] Address [address] [place] [address] Care Team Providers Care Event Planning Manager Name Role Phone Pankaj Rosenberg MD Primary Care Provider [phone] Reason for Visit * Reason Comments Pain Abdominal Pt c/o sharp abdomin al pain around his belly button X 1 day. Pt reports hx bowel resection in September feels the same as when I needed this pt reports hot flashes, n/v. Pt denies fever, chills * Auth/Cert (Routine) Specialty Diagnoses / Procedures Referred By Horcaio t Referred To Contact Referral ID Status Reason Start Date Expiration Date Visits Re quested Visits Authorized [id number] 1 1 Encounter Details Date Type Department Care Team (Late st Contact Info) Description 03/17/2022 2:29 AM CDT - 03/21/2022 11:15 AM [facility] Hospital Encounter [facility] ACUTE [address] [place] [id number] Ananda Shepherd MD [address] [place] [address] [place] [address] Hector Funk DO [address] [place] [address] [place] [address] [place] [phone] Internal Medicine Discharge Disposition: Home or Self [...] Comments Blood Pressure 144/91 03/21/2022 8:13 AM METALWORKING INSTRUCTOR Pulse 70 03/21/2022 8:13 AM METALWORKING INSTRUCTOR Temperature 36.9 ??C (98.4 ??F) 03/21/2022 8:13 AM CS T Respiratory Rate 18 03/21/2022 8:13 AM METALWORKING INSTRUCTOR Oxygen Saturation 98% 03/21/2022 8:13 AM METALWORKING INSTRUCTOR Inhaled Oxygen Concentration - - Weight 117.9 [...] Physician Discharge Summary Patient ID: Chuck Barlow [id number] 26 year old 1995 Admit date: 03/17/2022 [...] g by mouth once daily Elvia Hawkins, VALVE REPAIRER-LINOTYPE MECHANIC CONTINUE taking these medications which have NOT [...] MACHINE TO CHECK BLOOD SUGAR TWICE DAILY Ananad Gilbert, DO OneTouch Verio test strip Generic [...] HYDROcodone-acetaminophen 7.5-325 MG tablet Commonly known as: Pelham lidocaine 5 % patch Commonly known as: Lidoderm loratadine 10 MG tablet Commonly known as: Claritin omeprazole 40 MG capsule Commonly known as: PriLOSEC traMADol HCl 100 MG Tabs Signed: Modesto Traylor MD 03/21/2022 1:06 PM LWORKING INSTRUCTOR documented in this encounter Discharge Instructions * Discharge Instructions* Karrie Melo RN - 03/21/2022 10:21 AM METALWORKING INSTRUCTOR DISCHARGE INSTRUCTIONS: Mr Barlow You were admitted [...] having diarrhea. If you need to call [facility] for any reason, you may reach us at [phone] and dial [phone] for the heavy mobile equipment operator. CONCERNING SYMPTOMS: When to call your [...] Thanks! Modesto Traylor MD Internal Medicine Department [address] [address] LWORKING INSTRUCTOR documented in this encounter Medications at Time [...] this time. Milagros Foreman RN Case Manager [phone] LWORKING INSTRUCTOR * Karrie Melo RN - 03/21/2022 10:41 [...] 0845 by Karrie Melo RN Outcome: Progressing LWORKING INSTRUCTOR * Karrie Melo RN - 03/21/2022 8:46 [...] found in the flowsheet documentation) Outcome: Progressing LWORKING INSTRUCTOR * Lorna Parmar RN - 03/20/2022 7:30 [...] input(s): PROTIME, INR, PTT in the last 19447 hours. CULTURES: Culture Date/Time Value Ref Range [...] and verification. > Dictated by Gwen Fitch MD(residential care officer). I, Andrea Guillory have personally reviewed and interpreted this examination/ study. > Interpreting Provider: Andrea Guillory on 03/17/2022 9:36 AM PATHOLOGY: Specimens (From admission, onward) None ASSESSMENT: Chuck Barlow is a 26 year old male with PMH s/f gastroschisis, SBO as an infant, and SBO with small bowel resection on 09/17/21. He presented to [facility] for partial SBO evident on CT of [...] discharge: Family Transportation (who): patient to arrange [employer]/Support: Lizeth Barlow [employer] person: n/a Home/Functional Status: Functional and Cognitive [...] For any questions or needs please contact: Hr Advisor Name/Phone number: Milagros Foreman RN Case Manager [phone] * Patito Trevizo - 03/18/2022 1:44 PM CDT Corporate Recycling Manager had initial visit with this patient and his mother. I introduced the role of pastoral careand inquired about needs. No immediate needs at this time, but patient and mother aware of the 06/12presence of spot sprayer support as needed. Pastoral Care Ascom: [id number] [...] input(s): PROTIME, INR, PTT in the last 17906 hours. CULTURES: Culture Date/Time Value Ref Range [...] with the patient's care provider, Ms. Plascencia (CT) by Dr. Fitch via telephone at 5:00 PM on 03/17/2022 with readback comprehension and verification. > Dictated by Gwen Fitch MD(residential care officer). IAndrea have personally reviewed and interpreted this examination/ study. > Interpreting Provider: Andrea Guillory on 03/17/2022 9:36 AM PATHOLOGY: Specimens (From admission, onward) None ASSESSMENT: Chuck Barlow is a 26 year old male with PMH s/f gastroschisis, SBO as an , and SBO with small bowel resection on 09/17/21. He presented to [facility] for partial SBO evident on CT of [...] current use of insulin ([facility]) 06/16/2021 ??? History of gastroschisis [...] Reasons: FORDIABETES EDUCATION Blood Glucose Monitoring Suppl (MotionboxUCH VERIO REFLECT) w/Device KIT Use 1 Units [...] 6 hours as needed for Pain Lancets ([employer] DELICA PLUS 33G EXTRA FINE LANCET) USE [...] with the patient's care provider, Ms. Plascencia (CT) by Dr. Fitch via telephone at 5:00 PM on 03/17/2022 with readback comprehension and verification. > Dictated by Gwen Fitch MD(residential care officer). IAndrea have personally reviewed and interpreted this [...] current use of insulin ([facility]) 06/16/2021 ??? History of gastroschisis [...] ulcers, sinus pain Respiratory: cough, hemoptysis, sputum, AKSPER, dyspnea at rest, PND, wheezing Cardiovascular: chest [...] input(s): PROTIME, INR, PTT in the last 27884 hours. Imaging: XR ABDOMEN KUB Result Date: [...] with the patient's care provider, Ms. Plascencia (CT) by Dr. Fitch via telephone at 5:00 PM on 03/17/2022 with readback comprehension and verification. > Dictated by Gwen Fitch MD(residential care officer). IAndrea have personally reviewed and interpreted this [...] MD - 03/17/2022 8:02 AM CDT [facility]: [facility] Expected date: Expected time: Means of arrival: [...] current use of insulin ([facility]) 06/16/2021 ??? History of gastroschisis [...] Change in Procalcitonin Calculator is available at [email or web address]-RTF-[email or web address] Eyes If clinical picture has not improved and PCT remains high, reevaluate and consider treatment failure or other causes. LACTIC ACID BLOOD REFLEX TO REPEAT - Normal CREATININE - POCT INTERFACED - Normal CULTURE BLOOD CULTURE BLOOD URINALYSIS REFLEX TO MICROSCOPIC NO CULTURE XR ABDOMEN KUB Final Result PROCEDURE: XR ABDOMEN KUB, DATE/TIME OF EXAM: 03/17/2022 8:14 AM, LOCATION [facility] INDICATION: K56.600: Partial small bowel obstruction [...] DATE/TIME OF EXAM: 03/17/2022 4:33 AM, LOCATION [facility] HISTORY: R10.13: Abdominal pain, epigastric 26M [...] verification. > Dictated by Gwen Fitch MD (residential care officer). I, Andrea Guillory have personally reviewed and [...] (100 mL $ Given - Contrast 03/17/22 1600) HYDROmorphone (Dilaudid) injection 0.2 mg (0.2 mg Intravenous $ Given 03/17/22 5285) HYDROmorphone (Dilaudid) injection 0.5 mg (0.5 mg Intravenous $ Given 03/17/22 5530) Clinical Impression: 1. Abdominal pain, epigastric 2. [...] POINT OF CARE Routine 03/21/2022 8:15 AM METALWORKING INSTRUCTOR CBC W/O DIFFERENTIAL AM Draw 03/21/2022 6:06 AM METALWORKING INSTRUCTOR RENAL FUNCTION PANEL Routine 03/21/2022 6:06 AM METALWORKING INSTRUCTOR MAGNESIUM BLOOD Routine 03/21/2022 6:06 AM METALWORKING INSTRUCTOR GLUCOSE - POINT OF CARE Routine 03/20/2022 [...] - POINT OF CARE (03/21/2022 8:15 AM METALWORKING INSTRUCTOR) Pathologist [facility] Glucose WB/POC 96 70 - 115 mg/dL 03/21/2022 8:45 AM [facility] Specimen Type Cap Fingerstick 2021 8:45 AM [facility] Blood BLOOD SPECIMEN / Unknown 03/21/2022 8:15 AM METALWORKING INSTRUCTOR 03/21/2022 8:45 AM METALWORKING INSTRUCTOR Modesto Traylor MD LAB - POINT OF CARE ORDERABLES [facility] [address] [place] [address], [place] [phone] * MAGNESIUM BLOOD (03/21/2022 6:06 AM METALWORKING INSTRUCTOR) [facility] Magnesium 2.1 1.6 - 2.6 mg/dL 03/21/2022 8:26 AM [facility] Blood BLOOD SPECIMEN / Unknown Lab Venipuncture / Unknown 03/21/2022 6:06 AM METALWORKING INSTRUCTOR 03/21/2022 7:05 AM METALWORKING INSTRUCTOR Jay King PA-C LAB - CHEMISTRY ORD ERABLES [facility] [address] [place] [address], [place] [phone] * RENAL FUNCTION PANEL (03/21/2022 6:06 AM METALWORKING INSTRUCTOR) Pathologist [facility] BUN 11 7 - 26 mg/dL 03/21/2022 [...] Lab Venipuncture / Unknown 03/21/2022 6:06 AM [facility] 03/21/2022 7:05 AM [facility] Jay King PA-C LAB - CHEMISTRY ORD ERABLES [facility] [address] [place] [address], [facility] [phone] * (ABNORMAL) CBC W/O DIFFERENTIAL (03/21/2022 6:06 AM [facility]) WBC 6.7 3.5 - [...] Lab Venipuncture / Unknown 03/21/2022 6:06 AM METALWORKING INSTRUCTOR 03/21/2022 7:04 AM METALWORKING INSTRUCTOR Jay King PA-C LAB - HEMATOLOGY OR DERABLES Performing Organization Address [facility] Co de Phone Number [facility] [address] [place] [phone] [phone] * GLUCOSE - POINT OF CARE (03/20/2022 8:42 PM CDT) Glucose WB/POC 112 70 - 115 mg/dL 03/20/2022 8:44 PM CDT [facility] Specimen Type Cap Fingerstick 2021 8:44 PM CDT [facility] Blood BLOOD SPECIMEN / Unknown 03/20/2022 8:42 PM CDT 03/20/2022 8:44 PM CDT Modesto Traylor MD LAB - POINT OF CARE ORDERABLES [address] [address], [place] [phone] * (ABNORMAL) GLUCOSE - POINT OF CARE (03/20/2022 5:08 PM CDT) Glucose WB/POC 118(H) 70 - 115 mg/dL 03/20/2022 5:20 PM CDT [facility] Specimen Type Cap Fingerstick 2021 5:20 PM CDT [facility] Blood BLOOD SPECIMEN / Unknown 03/20/2022 5:08 PM CDT 03/20/2022 5:20 PM CDT Modesto Traylor MD LAB - POINT OF CARE ORDERABLES Performing Organization Address City/[facility]/ZIP Co de Phone Number [address] [address], [place] [phone] * GLUCOSE - POINT OF CARE (03/20/2022 12:21 PM CDT) Glucose WB/POC 96 70 - 115 mg/dL 03/20/2022 12:26 PM CDT [facility] Specimen Type Cap Fingerstick 2021 12:26 PM CDT [facility] Blood BLOOD SPECIMEN / Unknown 03/20/2022 12:21 PM CDT 03/20/2022 12:26 PM CDT Modesto Traylor MD LAB - POINT OF CARE ORDERABLES [address] [address], [place] [phone] * GLUCOSE - POINT OF CARE (03/20/2022 7:51 AM CDT) Glucose WB/POC 89 70 - 115 mg/dL 03/20/2022 7:56 AM CDT [facility] Specimen Type Cap Fingerstick 2021 7:56 AM CDT [facility] Blood BLOOD SPECIMEN / Unknown 03/20/2022 7:51 AM CDT 03/20/2022 7:56 AM CDT Modesto Traylor MD LAB - POINT OF CARE ORDERABLES Performing Organization Address [facility] Co de Phone Number [address] [address], [facility] [phone] * MAGNESIUM BLOOD (03/20/2022 4:28 AM CDT) Magnesium 2.1 1.6 - 2.6 mg/dL 03/20/2022 6:42 AM CDT [facility] Comment:Hemolysis detected i n this specimen. Hemolysis is known to cause elevations in this analyte. Caution should be exercised in the interpretation of this result. Recommend repeat testing if clinically indicated. Blood BLOOD SPECIMEN / Unknown Lab Venipuncture / Unknown 03/20/2022 4:28 AM CDT 03/20/2022 5:34 AM CDT Jay King PA-C LAB - CHEMISTRY ORD ERABLES Performing Organization Address [facility]/ZIP Co de Phone Number [address] [address], [facility] [phone] * (ABNORMAL) RENAL FUNCTION PANEL (03/20/2022 4:28 AM CDT) BUN 10 7 - 26 mg/dL 03/20/2022 6:37 AM CDT [facility] Creatinine 0.97 0.71 - 1.16 mg/dL 03/20/2022 6:37 AM CDT [facility] Sodium 144 136 - 145 mmol/L 03/20/2022 6:37 AM CDT [facility] Potassium 4.2 3.5 - 4.5 mmol/L 03/20/2022 6:37 AM T [facility] Comment:Hemolysis detected i n this specimen. Hemolysis may cause false elevations in potassium leading to pseudohyperkalemia or masked hypokalemia. Recommend repeat testing if clinically indicated. Chloride 109(H) 98 - 107 mmol/L 03/20/2022 6:37 AM [facility] CO2 19(L) 22 - 29 mmol/L 03/20/2022 6:37 AM [facility] Glucose 92 70 - 115 mg/dL 03/20/2022 6:37 AM [facility] Albumin 3.5 3.4 - 5.0 g/dL 03/20/2022 6:37 AM [facility] Calcium 9.2 8.4 - 10.2 mg/dL 03/20/2022 6:37 AM [facility] Phosphorus 4.5 2.8 - 5.1 mg/dL 03/20/2022 6:37 AM [facility] Anion Gap 20(H) 8 - 18 03/20/2022 6:37 AM [facility] BUN/Creatinine Ratio 10 7 - 23 1109/2021 6:37 AM [facility] Osmolality Calculated 297 270 - 300 mOsm/kg 03/20/2022 6:37 AM [facility] eGFR by CKD-EPI >90 >=90 mL/min/1. 73 m2 03/20/2022 6:37 AM [facility] Blood BLOOD SPECIMEN / Unknown Lab Venipuncture / Unknown 03/20/2022 4:28 AM CDT 03/20/2022 5:34 AM CDT Jay King PA-C LAB - CHEMISTRY ORD ERABLES Performing Organization Address [facility]/State/[facility] Co de Phone Number [facility] [address] [place] [phone] [phone] * (ABNORMAL) CBC W/O DIFFERENTIAL (03/20/2022 4:27 AM CDT) WBC 7.1 3.5 - 10.5 10? 3 /uL 03/20/2022 5:50 AM [facility] RBC 4.62 4.30 - 5.70 10? 6 /uL 03/20/2022 5:50 AM [facility] Hemoglobin 12.1 12.0 - 17.6 g/dL 03/20/2022 5:50 AM [facility] Hematocrit 37.8 35.2 - 51.7 % 03/20/2022 5:50 AM [facility] MCV 81.8 80.7 - 98.3 fL 03/20/2022 5:50 AM [facility] MCH 26.2(L) 26.7 - 34.0 pg 03/20/2022 5:50 AM [facility] MCHC 32.0 30.8 - 35.9 g/dL 03/20/2022 5:50 AM [facility] RDW-SD 38.5 36.0 - 50.0 fL 03/20/2022 5:50 AM [facility] RDW-CV 13.1 11.2 - 14.8 % 03/20/2022 5:50 AM [facility] Platelet Count 280 150 - 400 10? 3 /uL 03/20/2022 5:50 AM [facility] MPV 11.0 9.4 - 12.9 fL 03/20/2022 5:50 AM [facility] nRBC Absolute 0.00 0 10? 3 /uL 03/20/2022 5:50 AM [facility] nRBC Auto 0.0 0 /100 WBC 03/20/2022 5:50 AM [facility] Blood BLOOD SPECIMEN / Unknown Lab Venipuncture / Unknown 03/20/2022 4:27 AM CDT 03/20/2022 5:34 AM CDT Jay King PA-C LAB - HEMATOLOGY OR DERABLES [facility] [address] [place] [address], [facility] [phone] * (ABNORMAL) GLUCOSE - POINT OF CARE (03/19/2022 8:23 PM CDT) Glucose WB/POC 121(H) 70 - 115 mg/dL 03/19/2022 8:28 PM [facility] Specimen Type Cap Fingerstick 2021 8:28 PM [facility] Blood BLOOD SPECIMEN / Unknown 03/19/2022 8:23 PM CDT 03/19/2022 8:28 PM CDT Modesto Traylor MD LAB - POINT OF CARE ORDERABLES [facility] [address] [place] [address], [place] [phone] * (ABNORMAL) GLUCOSE - POINT OF CARE (03/19/2022 5:39 PM CDT) Glucose WB/POC 144(H) 70 - 115 mg/dL 03/19/2022 5:49 PM CDT [facility] Specimen Type Cap Fingerstick 2021 5:49 PM CDT [facility] Blood BLOOD SPECIMEN / Unknown 03/19/2022 5:39 PM CDT 03/19/2022 5:49 PM CDT Modesto Traylor MD LAB - POINT OF CARE ORDERABLES Performing Organization Address City/[facility]/ZIP Co de Phone Number [address] [address], [place] [phone] * (ABNORMAL) GLUCOSE - POINT OF CARE (03/19/2022 11:45 AM CDT) Glucose WB/POC 136(H) 70 - 115 mg/dL 03/19/2022 11:49 AM CDT [facility] Specimen Type Cap Fingerstick 2021 11:49 AM CDT [facility] Blood BLOOD SPECIMEN / Unknown 03/19/2022 11:45 AM CDT 03/19/2022 11:49 AM CDT Modesto Traylor MD LAB - POINT OF CARE ORDERABLES [address] [address], [place] [phone] * GLUCOSE - POINT OF CARE (03/19/2022 7:37 AM CDT) Glucose WB/POC 89 70 - 115 mg/dL 03/19/2022 7:48 AM CDT [facility] Specimen Type Cap Fingerstick 2021 7:48 AM CDT [facility] Blood BLOOD SPECIMEN / Unknown 03/19/2022 7:37 AM CDT 03/19/2022 7:48 AM CDT Modesto Traylor MD LAB - POINT OF CARE ORDERABLES [address] [address], [place] [phone] * MAGNESIUM BLOOD (03/19/2022 3:21 AM CDT) Pathologist [facility] Magnesium 2.1 1.6 - 2.6 mg/dL 03/19/2022 5:24 AM CDT [facility] Blood BLOOD SPECIMEN / Unknown Lab Venipuncture / Unknown 03/19/2022 3:21 AM CDT 03/19/2022 4:57 AM CDT Jay King PA-C LAB - CHEMISTRY ORD ERABLES Performing Organization Address City/[facility]/ZIP Co de Phone Number [address] [address], [place] [phone] * RENAL FUNCTION PANEL (03/19/2022 3:21 AM CDT) Pathologist [facility] BUN 9 7 - 26 mg/dL 03/19/2022 5:24 AM CDT [facility] Creatinine 0.82 0.71 - 1.16 mg/dL 03/19/2022 5:24 AM T [facility] Sodium 139 136 - 145 mmol/L 03/19/2022 5:24 AM T [facility] Potassium 3.6 3.5 - 4.5 mmol/L 03/19/2022 5:24 AM [facility] Chloride 105 98 - 107 mmol/L 03/19/2022 5:24 AM T [facility] CO2 26 22 - 29 mmol/L 03/19/2022 5:24 AM [facility] Glucose 79 70 - 115 mg/dL 03/19/2022 5:24 AM [facility] Albumin 3.4 3.4 - 5.0 g/dL 03/19/2022 5:24 AM [facility] Calcium 9.2 8.4 - 10.2 mg/dL 03/19/2022 5:24 AM [facility] Phosphorus 3.9 2.8 - 5.1 mg/dL 03/19/2022 5:24 AM [facility] Anion Gap 12 8 - 18 03/19/2022 5:24 AM [facility] BUN/Creatinine Ratio 11 7 - 23 03/19/2022 5:24 AM [facility] Osmolality Calculated 286 270 - 300 mOsm/kg 03/19/2022 5:24 AM [facility] eGFR by CKD-EPI >90 >=90 mL/min/1.7 3 m2 03/19/2022 5:24 AM [facility] Blood BLOOD SPECIMEN / Unknown Lab Venipuncture / Unknown 03/19/2022 3:21 AM CDT 03/19/2022 4:57 AM CDT Jay King PA-C LAB - CHEMISTRY ORD ERABLES [facility] [address] [place] [address], [facility] [phone] * (ABNORMAL) CBC W/O DIFFERENTIAL (03/19/2022 3:21 AM CDT) WBC 7.3 3.5 - 10.5 10? 3 /uL 03/19/2022 5:12 AM [facility] RBC 4.38 4.30 - 5.70 10? 6 /uL 03/19/2022 5:12 AM [facility] Hemoglobin 11.4(L) 12.0 - 17.6 g/dL 03/19/2022 5:12 AM [facility] Hematocrit 36.1 35.2 - 51.7 % 03/19/2022 5:12 AM [facility] MCV 82.4 80.7 - 98.3 fL 03/19/2022 5:12 AM T [facility] MCH 26.0(L) 26.7 - 34.0 pg 03/19/2022 5:12 AM T [facility] MCHC 31.6 30.8 - 35.9 g/dL 03/19/2022 5:12 AM [facility] RDW-SD 39.3 36.0 - 50.0 fL 03/19/2022 5:12 AM [facility] RDW-CV 13.2 11.2 - 14.8 % 03/19/2022 5:12 AM [facility] Platelet Count 306 150 - 400 10? 3 /uL 03/19/2022 5:12 AM [facility] MPV 10.2 9.4 - 12.9 fL 03/19/2022 5:12 AM [facility] nRBC Absolute 0.00 0 10? 3 /uL 03/19/2022 5:12 AM [facility] nRBC Auto 0.0 0 /100 WBC 03/19/2022 5:12 AM [facility] Blood BLOOD SPECIMEN / Unknown Lab Venipuncture / Unknown 03/19/2022 3:21 AM CDT 03/19/2022 4:57 AM CDT Jay King PA-C LAB - HEMATOLOGY OR DERABLES Performing Organization Address City/State/[facility] Co de Phone Number [facility] [address] [place] [address], [facility] [phone] * GLUCOSE - POINT OF CARE (03/18/2022 7:58 PM CDT) Glucose WB/POC 86 70 - 115 mg/dL 03/18/2022 8:06 PM CDT [facility] Specimen Type Cap Fingerstick 2021 8:06 PM CDT [facility] Blood BLOOD SPECIMEN / Unknown 03/18/2022 7:58 PM CDT 03/18/2022 8:06 PM CDT Modesto Traylor MD LAB - POINT OF CARE ORDERABLES Performing Organization Address City/[facility]/ZIP Co de Phone Number [address] [address], [place] [phone] * GLUCOSE - POINT OF CARE (03/18/2022 3:48 PM CDT) Glucose WB/POC 83 70 - 115 mg/dL 03/18/2022 3:52 PM CDT [facility] Specimen Type Cap Fingerstick 2021 3:52 PM CDT [facility] Blood BLOOD SPECIMEN / Unknown 03/18/2022 3:48 PM CDT 03/18/2022 3:52 PM CDT Modesto Traylor MD LAB - POINT OF CARE ORDERABLES Performing Organization Address [facility]/ZIP Co de Phone Number [address] [address], [place] [phone] * GLUCOSE - POINT OF CARE (03/18/2022 12:30 PM CDT) Glucose WB/POC 86 70 - 115 mg/dL 03/18/2022 12:38 PM CDT [facility] Specimen Type Cap Fingerstick 2021 12:38 PM CDT [facility] Blood BLOOD SPECIMEN / Unknown 03/18/2022 12:30 PM CDT 03/18/2022 12:38 PM CDT Modesto Traylor MD LAB - POINT OF CARE ORDERABLES Performing Organization Address City/[facility]/ZIP Co de Phone Number [address] [address], [place] [phone] * GLUCOSE - POINT OF CARE (03/18/2022 7:50 AM CDT) Glucose WB/POC 90 70 - 115 mg/dL 03/18/2022 8:00 AM CDT [facility] Specimen Type Cap Fingerstick 2021 8:00 AM CDT [facility] Blood BLOOD SPECIMEN / Unknown 03/18/2022 7:50 AM CDT 03/18/2022 8:00 AM CDT Hector Funk DO LAB - POINT OF CARE ORDERABLES Performing Organization Address City/[facility]/ZIP Co de Phone Number [address] [address], [facility] [phone] * MAGNESIUM BLOOD (03/18/2022 4:19 AM CDT) Magnesium 2.1 1.6 - 2.6 mg/dL 03/18/2022 5:41 AM T [facility] Blood BLOOD SPECIMEN / Unknown Lab Venipuncture / Unknown 03/18/2022 4:19 AM CDT 03/18/2022 5:12 AM CDT Jay King PA-C LAB - CHEMISTRY ORD ERABLES Performing Organization Address City/[facility]/ZIP Co de Phone Number [address] [address], [facility] [phone] * (ABNORMAL) RENAL FUNCTION PANEL (03/18/2022 4:19 AM CDT) BUN 13 7 - 26 mg/dL 03/18/2022 5:41 AM [facility] Creatinine 0.90 0.71 - 1.16 mg/dL 03/18/2022 5:41 AM [facility] Sodium 141 136 - 145 mmol/L 03/18/2022 5:41 AM [facility] Potassium 4.0 3.5 - 4.5 mmol/L 03/18/2022 5:41 AM [facility] Chloride 107 98 - 107 mmol/L 03/18/2022 5:41 AM [facility] CO2 22 22 - 29 mmol/L 03/18/2022 5:41 AM [facility] Glucose 90 70 - 115 mg/dL 03/18/2022 5:41 AM [facility] Albumin 3.3(L) 3.4 - 5.0 g/dL 03/18/2022 5:41 AM [facility] Calcium 8.8 8.4 - 10.2 mg/dL 03/18/2022 5:41 AM [facility] Phosphorus 3.8 2.8 - 5.1 mg/dL 03/18/2022 5:41 AM [facility] Anion Gap 16 8 - 18 03/18/2022 5:41 AM [facility] BUN/Creatinine Ratio 14 7 - 23 03/18/2022 5:41 AM [facility] Osmolality Calculated 292 270 - 300 mOsm/kg 03/18/2022 5:41 AM [facility] eGFR by CKD-EPI >90 >=90 mL/min/1.7 3 m2 03/18/2022 5:41 AM [facility] Blood BLOOD SPECIMEN / Unknown Lab Venipuncture / Unknown 03/18/2022 4:19 AM CDT 03/18/2022 5:12 AM CDT Jay King PA-C LAB - CHEMISTRY ORD ERABLES [facility] [address] [place], [place] [address], [facility] [phone] * (ABNORMAL) CBC W/O DIFFERENTIAL (03/18/2022 4:19 AM CDT) WBC 9.7 3.5 - 10.5 10? 3 /uL 03/18/2022 5:41 AM [facility] RBC 4.47 4.30 - 5.70 10? 6 /uL 03/18/2022 5:41 AM [facility] Hemoglobin 11.8(L) 12.0 - 17.6 g/dL 03/18/2022 5:41 AM [facility] Hematocrit 36.8 35.2 - 51.7 % 03/18/2022 5:41 AM [facility] MCV 82.3 80.7 - 98.3 fL 03/18/2022 5:41 AM [facility] MCH 26.4(L) 26.7 - 34.0 pg 03/18/2022 5:41 AM [facility] MCHC 32.1 30.8 - 35.9 g/dL 03/18/2022 5:41 AM [facility] RDW-SD 40.2 36.0 - 50.0 fL 03/18/2022 5:41 AM [facility] RDW-CV 13.6 11.2 - 14.8 % 03/18/2022 5:41 AM [facility] Platelet Count 300 150 - 400 10? 3 /uL 03/18/2022 5:41 AM [facility] MPV 10.4 9.4 - 12.9 fL 03/18/2022 5:41 AM [facility] nRBC Absolute 0.00 0 10? 3 /uL 03/18/2022 5:41 AM [facility] nRBC Auto 0.0 0 /100 WBC 03/18/2022 5:41 AM [facility] Blood BLOOD SPECIMEN / Unknown Lab Venipuncture / Unknown 03/18/2022 4:19 AM CDT 03/18/2022 5:12 AM CDT Jay King PA-C LAB - HEMATOLOGY OR DERABLES [address] [address], [facility] [phone] * GLUCOSE - POINT OF CARE (03/17/2022 10:20 PM CDT) [facility] Glucose WB/POC 89 70 - 115 mg/dL 03/17/2022 11:55 PM T [facility] Specimen Type Arterial 03/17/2022 11:55 PM T [facility] Blood BLOOD SPECIMEN / Unknown 03/17/2022 10:20 PM CDT 03/17/2022 11:55 PM CDT Hector Funk DO LAB - POINT OF CARE ORDERABLES [address] [address], [place] [phone] * GLUCOSE - POINT OF CARE (03/17/2022 6:16 PM CDT) Glucose WB/POC 87 70 - 115 mg/dL 03/17/2022 6:21 PM CDT [facility] Specimen Type Cap Fingerstick 2021 6:21 PM CDT [facility] Blood BLOOD SPECIMEN / Unknown 03/17/2022 6:16 PM CDT 03/17/2022 6:21 PM CDT Ananda Shepherd MD LAB - POINT OF CARE ORDERABLES [facility] [address] [place] [address], [facility] [phone] * URINALYSIS REFLEX TO MICROSCOPIC NO CULTURE (03/17/2022 5:03 PM CDT) Color UA Yellow Straw, Yellow 03/17/2022 5:14 PM CDT [facility] Clarity UA Clear Clear 03/17/2022 5:14 PM T [facility] Specific [place] UA 1.024 1.005 - 1.030 03/17/2022 5:14 PM [facility] pH UA 7.0 5.0 - 8.0 pH 03/17/2022 5:14 PM T [facility] Protein UA Negative Negative 03/17/2022 5:14 PM T [facility] Glucose UA Negative Negative 03/17/2022 5:14 PM T [facility] Ketone UA Negative Negative 03/17/2022 5:14 PM T [facility] Bilirubin UA Negative Negative 03/17/2022 5:14 PM [facility] Blood UA Negative Negative 03/17/2022 5:14 PM [facility] Nitrite UA Negative Negative 03/17/2022 5:14 PM [facility] Leukocyte Esterase Negative Negative 03/17/2022 5:14 PM T [facility] Urobilinogen UA Negative Negative mg/dL 03/17/2022 5:14 PM T [facility] RBC UA 0-2 None Seen, 0-2, 3-5 /HPF 03/17/2022 5:14 PM CDT [facility] WBC UA 0-5 None Seen, 0-5 /HPF 03/17/2022 5:14 PM CDT [facility] Squamous Epithelial Cells UA None Seen None Seen, 0-2, 3-5 /HPF 03/17/2022 5:14 PM CDT [facility] Urine URINE SPECIMEN OBTAINED BY CLEAN CATCH PROCEDURE / Unknown Collection / Unknown 03/17/2022 5:03 PM CDT 03/17/2022 5:07 PM CDT Narrative [facility] - 03/17/2022 5:14 PM CDT Eriberto Plascencia PA-C LAB - URIN ALYSIS ORDERABLES [facility] [address] [place] [address], [facility] [phone] * XR ABDOMEN KUB PORTABLE (03/17/2022 3:16 PM CDT) Anatomical Region Laterality Modality Abdomen Radiographic Merissa ging 03/17/2022 3:19 PM CDT Narrative 03/17/2022 3:26 PM CDT PROCEDURE: ??XR ABDOMEN KUB PORTABLE, DATE/TIME OF EXAM: ??03/17/2022 3:17 PM, LOCATION ??[facility] INDICATION: R10.13: Abdominal pain, epigastric R11.14: [...] stomach. Report dictated by Ananda Ashton DO (residential care officer). IAndrea have personally reviewed and interpreted this examination/study. > Interpreting Provider: Andrea Guillory on 03/17/2022 3:26 PM Procedure Note Andrea Guillory MD - 03/17/2022 PROCEDURE: XR ABDOMEN KUB PORTABLE, DATE/TIME OF EXAM: 03/17/2022 3:17PM, LOCATION [facility] INDICATION: R10.13: Abdominal pain, epigastric R11.14: [...] stomach. Report dictated by Ananda Ashton DO (residential care officer). Andrea Zhou have personally reviewed and interpreted this examination/study. > Interpreting Provider: Andrea Guillory on 03/17/2022 3:26 PM Jay King PA-C DIAGNOSTIC IMAGING ORDERABLES * XR ABDOMEN KUB PORTABLE (03/17/2022 1:24 PM CDT) Anatomical Region Laterality Modality Abdomen Radiographic Merissa ging 03/17/2022 1:2 8 PM CDT Narrative 03/17/2022 3:07 PM CDT PROCEDURE: ??XR ABDOMEN KUB PORTABLE, DATE/TIME OF EXAM: ??03/17/2022 1:24 PM, LOCATION ??[facility] INDICATION: R10.13: Abdominal pain, epigastric ADDITIONAL CLINICAL INFORMATION: Ordering Provider Reason For Exam: ??Confirm NG tube placement The tip and side port of an enteric tube terminates in stomach. Andrea Zhou have personally reviewed and interpreted this examination/study. > Interpreting Provider: Andrea Gulilory on 03/17/2022 3:07 PM Procedure Note Andrea Guillory MD - 03/17/2022 PROCEDURE: XR ABDOMEN KUB PORTABLE, DATE/TIME OF EXAM: 03/17/2022 1:24PM, LOCATION [facility] INDICATION: R10.13: Abdominal pain, epigastric ADDITIONAL [...] 1.6 <=2.0 mmol/L 03/17/2022 9:04 AM CDT [facility] Blood BLOOD SPECIMEN / Unknown Venipuncture / Unknown 03/17/2022 8:33 AM CDT 03/17/2022 8:38 AM CDT Carolyn Houston MD LAB - CHEMISTRY [place] Performing Organization Address City/State/[facility] Co de Phone Number [facility] [address] [place] [phone], [facility] [phone] * XR ABDOMEN KUB (03/17/2022 8:27 AM [...] DATE/TIME OF EXAM: ??03/17/2022 8:14 AM, LOCATION [facility] INDICATION: K56.600: Partial small bowel obstruction (CMS/HCC) R11.14: Bilious vomiting with nausea ADDITIONAL CLINICAL INFORMATION: Ordering Provider Reason For Exam: ??post-NGT placement Procedure Note Ginette Wellington MD - 03/17/2022 PROCEDURE: XR ABDOMEN KUB, DATE/TIME OF EXAM: 03/17/2022 8:14 AM,LOCATION [facility] INDICATION: K56.600: Partial small bowel obstruction [...] growth day 5 YAN 03/22/2022 7:30 AM METALWORKING INSTRUCTOR [facility] MICROBIOLOGY Blood PERIPHERAL BLOOD / Unknown Venipuncture / Unknown 03/17/2022 5:27 AM CDT 03/17/2022 5:32 AM CDT Carolyn Houston MD LAB - MICROBIOLOGY O RDERABLES [facility] MICROBIOLOGY [address] [place] [phone] * PROCALCITONIN LEVEL (03/17/2022 5:22 AM CDT) PROCALCITONIN <0.02 <=0.10 ng/mL 03/17/2022 6:42 AM CDT [facility] Blood BLOOD SPECIMEN / Unknown Venipuncture / Unknown 03/17/2022 5:22 AM CDT 03/17/2022 5:47 AM CDT Narrative [facility] - 03/17/2022 6:42 AM CDT The [...] Change in Procalcitonin Calculator is available at [email or web address] Eyes ?? If clinical picture has not improved and PCT remains high, reevaluate and consider treatment failure or other causes. Carolyn Houston MD LAB - CHEMISTRY [place] Performing Organization Address [facility] Co de Phone Number [address] [address], [place] [phone] * CULTURE BLOOD (03/17/2022 5:22 AM CDT) Culture No growth day 5 YAN 03/22/2022 7:30 AM METALWORKING INSTRUCTOR [facility] MICROBIOLOGY Blood PERIPHERAL BLOOD / Unknown Venipuncture / Unknown 03/17/2022 5:22 AM CDT 03/17/2022 5:32 AM CDT Carolyn Houston MD LAB - MICROBIOLOGY O RDERABLES Performing Organization Address City/[facility] Co de Phone Number [facility] [employer] MICROBIOLOGY [address] [place] [address], [facility] [phone] * CT ABDOMEN PELVIS W CONTRAST (03/17/2022 [...] verification. > Dictated by Gwen Fitch MD (residential care officer). I, Andrea Guillory have personally reviewed and interpreted this examination/study. > Interpreting Provider: Andrea Guillory on 03/17/2022 9:36 AM Narrative 03/17/2022 9:36 AM CDT EXAMINATION: CT ABDOMEN PELVIS W CONTRAST DATE/TIME OF EXAM: ??03/17/2022 4:33 AM, LOCATION ??[facility] HISTORY: R10.13: Abdominal pain, epigastric 26M [...] DATE/TIME OF EXAM: 03/17/2022 4:33 AM, LOCATION [facility] HISTORY: R10.13: Abdominal pain, epigastric 26M [...] verification. > Dictated by Gwen Fitch MD (residential care officer). I, Andrea Guillory have personally reviewed and interpreted this examination/study. > Interpreting Provider: Andrea Guillory on 03/17/2022 9:36 AM Eriberto Plascencia PA-C CT ORDERAB LES * CREATININE - POCT INTERFACED (03/17/2022 4:16 AM CDT) Creatinine POCT 0.89 0.30 - 1.30 mg/dL 03/17/2022 4:28 AM CDT [facility] eGFR >90 >90 mL/min/1.7 3 m2 03/17/2022 4:28 AM CDT [facility] Blood BLOOD SPECIMEN / Unknown 03/17/2022 4:16 AM CDT 03/17/2022 4:27 AM CDT Provider Unknown LAB - POINT OF CARE ORDERABLES [facility] [address] [place] [address], [place] [phone] * LIPASE BLOOD (03/17/2022 3:41 AM CDT) Lipase 26 8 - 78 U/L 03/17/2022 4:19 AM CDT [facility] Blood BLOOD SPECIMEN / Unknown Venipuncture / Unknown 03/17/2022 3:41 AM CDT 03/17/2022 3:51 AM CDT Eriberto Plascencia PA-C LAB - CHEM ISTRY ORDERABLES Performing Organization Address [facility]/ZIP Co de Phone Number [address] [address], [place] [phone] * (ABNORMAL) LACTIC ACID BLOOD (03/17/2022 3:41 AM CDT) Pathologist [facility] Lactic Acid-Stat 3.0(H) <=2.0 mmol/L 03/17/2022 4:13 AM CDT [facility] Blood BLOOD SPECIMEN / Unknown Venipuncture / Unknown 03/17/2022 3:41 AM CDT 03/17/2022 3:51 AM CDT Eriberto Plascencia PA-C LAB - CHEM ISTRY ORDERABLES [address] [address], [place] [phone] * (ABNORMAL) CBC W AUTO DIFFERENTIAL (03/17/2022 3:41 AM CDT) WBC 24.2(H) 3.5 - 10.5 10? 3 /uL 03/17/2022 3:55 AM CDT [facility] RBC 5.28 4.30 - 5.70 10? 6 /uL 03/17/2022 3:55 AM [facility] Hemoglobin 13.7 12.0 - 17.6 g/dL 03/17/2022 3:55 AM [facility] Hematocrit 43.2 35.2 - 51.7 % 03/17/2022 3:55 AM [facility] MCV 81.8 80.7 - 98.3 fL 03/17/2022 3:55 AM [facility] MCH 25.9(L) 26.7 - 34.0 pg 03/17/2022 3:55 AM [facility] MCHC 31.7 30.8 - 35.9 g/dL 03/17/2022 3:55 AM [facility] RDW-SD 39.9 36.0 - 50.0 fL 03/17/2022 3:55 AM [facility] RDW-CV 13.5 11.2 - 14.8 % 03/17/2022 3:55 AM [facility] Platelet Count 484(H) 150 - 400 10? 3 /uL 03/17/2022 3:55 AM [facility] MPV 10.1 9.4 - 12.9 fL 03/17/2022 3:55 AM [facility] nRBC Absolute 0.00 0 10? 3 /uL 03/17/2022 3:55 AM [facility] nRBC Auto 0.0 0 /100 WBC 03/17/2022 3:55 AM [facility] Neutrophils % 85.0(H) 35.0 - 70.0 % 03/17/2022 3:55 AM [facility] Lymphocytes % 10.1(L) 20.0 - 43.0 % 03/17/2022 3:55 AM [facility] Monocytes % 3.8(L) 5.0 - 13.0 % 03/17/2022 3:55 AM [facility] Eosinophils % 0.1 0.0 - 6.0 % 03/17/2022 3:55 AM [facility] Basophil % 0.3 0.0 - 2.0 % 03/17/2022 3:55 AM CDT [facility] Neutrophils Absolute 20.57(H) 1.60 - 7.00 10? 3 /uL 03/17/2022 3:55 AM T [facility] Lymphocyte Absolute 2.44 1.10 - 3.90 10? 3 /uL 03/17/2022 3:55 AM T [facility] Monocytes Absolute 0.91 0.26 - 1.07 10? 3 /uL 03/17/2022 3:55 AM T [facility] Eosinophils Absolute 0.02 0.00 - 0.47 10? 3 /uL 03/17/2022 3:55 AM T [facility] Basophils Absolute 0.08 0.00 - 0.08 10? 3 /uL 03/17/2022 3:55 AM [facility] Immature Granulocytes % 0.7 0.0 - 1.0 % 03/17/2022 3:55 AM [facility] Immature Granulocytes Absolute 0.16 03/17/2022 3:55 AM [facility] Blood BLOOD SPECIMEN / Unknown Venipuncture / Unknown 03/17/2022 3:41 AM CDT 03/17/2022 3:51 AM CDT Eriberto Plascencia PA-C LAB - TOM TOLOGY ORDERABLES Performing Organization Address [facility]/State/[facility] Co de Phone Number [address] [address], [facility] [phone] * (ABNORMAL) COMPREHENSIVE METABOLIC PANEL (03/17/2022 3:41 AM CDT) BUN 14 7 - 26 mg/dL 03/17/2022 4:19 AM [facility] Creatinine 0.83 0.71 - 1.16 mg/dL 03/17/2022 4:19 AM [facility] Sodium 138 136 - 145 mmol/L 03/17/2022 4:19 AM [facility] Potassium 4.5 3.5 - 4.5 mmol/L 03/17/2022 4:19 AM [facility] Chloride 105 98 - 107 mmol/L 03/17/2022 4:19 AM [facility] CO2 20(L) 22 - 29 mmol/L 03/17/2022 4:19 AM [facility] Glucose 158(H) 70 - 115 mg/dL 03/17/2022 4:19 AM [facility] Calcium 10.1 8.4 - 10.2 mg/dL 03/17/2022 4:19 AM [facility] Protein Total 8.2 6.0 - 8.3 g/dL 03/17/2022 4:19 AM [facility] Albumin 4.1 3.4 - 5.0 g/dL 03/17/2022 4:19 AM [facility] Bilirubin Total 1.0 0.2 - 1.2 mg/dL 03/17/2022 4:19 AM [facility] Alkaline Phosphatase 113 40 - 150 U/L 03/17/2022 4:19 AM [facility] ALT 40 5 - 55 U/L 03/17/2022 4:19 AM [facility] AST 17 5 - 34 U/L 03/17/2022 4:19 AM [facility] Anion Gap 18 8 - 18 03/17/2022 4:19 AM [facility] BUN/Creatinine Ratio 17 7 - 23 03/17/2022 4:19 AM [facility] Osmolality Calculated 290 270 - 300 mOsm/kg 03/17/2022 4:19 AM [facility] Albumin/Globulin Ratio 1.0(L) 1.1 - 2.3 03/17/2022 4:19 AM [facility] eGFR by CKD-EPI >90 >=90 mL/min/1.7 3 m2 03/17/2022 4:19 AM [facility] Blood BLOOD SPECIMEN / Unknown Venipuncture / Unknown 03/17/2022 3:41 AM T 03/17/2022 3:51 AM [facility] Eriberto Plascencia PA-C LAB - CHEM ISTRY ORDERABLES [facility] [address] [place] [address], [facility] [phone] documented in this encounter Visit Diagnoses Diagnosis [...] 8 hours. $ Given 03/21/2022 6:44 AM METALWORKING INSTRUCTOR 3 mL $ Given 03/20/2022 8:33 PM CDT 3 mL $ Given 03/20/2022 12:58 PM CDT 3 mL acetaminophen (Ofirmev) injection 1,000 mg 1,000 mg, at 400 mL/hr, Intravenous, EVERY 8 HOURS PRN, Mild Pain, Moderate Pain, 3 doses, Starting on Tue03/17/22 at 1307, Until Tue03/19/22 at 0912, See NXVISIONedex for renal dosing guidelines. Patient preference for [...] the MAR. $ Given 03/21/2022 10:35 AM METALWORKING INSTRUCTOR 1,000 mg $ Given 03/20/2022 5:23 PM [...] Until Discontinued $ Given 03/21/2022 8:35 AM METALWORKING INSTRUCTOR 100 mg $ Given 03/20/2022 8:33 PM [...] cause hematoma. $ Given 03/21/2022 8:35 AM METALWORKING INSTRUCTOR 40 mg Ab dominal Tissue $ Given [...] to administration $ Given 03/21/2022 8:35 AM METALWORKING INSTRUCTOR 17 g $ Given 03/20/2022 12:05 PM [...] may contain times in both CDT and METALWORKING INSTRUCTOR. Scheduled Medication Order 03/19/2022 03/20/2022 03/21/2022 0.9% [...] Mcclendon RN)1723 ($ Given - Provider: Miranda Mcclendno RN) phenol 1.4 % liquid 1 spray [...] patency. documented in this encounter Care Teams Event Planning Manager Relationship Specialty Start Date End Date Pankaj Rosenberg MD [address] [facility] [address] [place] [address] PCP - General 10/06/21 documented as of this encounter
--- OUTSIDE RECORDS SUMMARY | 2024-05-13 11:42 | XMS_ITS | Encounter Summary ---
Author Organization [facility] Address [address] [facility] [place] [address] Care Team Providers Care Service Counselor Name Role Phone Pankaj Rosenberg MD Primary Care Provider [phone] Reason for Visit * Reason Comments Post-Op LAP POST OP 5.10.04 Encounter Details Date Type Department Care Team (Late st Contact Info) Description 10/07/2021 1:45 PM CDT Office Visit [facility] General Surgery [address] [facility] [place] [phone] S/P partial resection of colon (Primary Dx) [...] to age 4 who [facility] for evaluation of [...] by mouth once daily ??? blood glucose (NeomobileUCH VERIO) test strip USE 1 STRIP TO CHECK BLOOD SUGAR TWICE DAILY Reasons:FOR DIABETES EDUCATION 100 strip PRN ??? Blood Glucose Monitoring Suppl (NeomobileUCH VERIO REFLECT) w/Device KIT Use 1 Units [...] for Pain 12 tablet 0 ??? Lancets (GüvenRehberiTOUCH DELICA PLUS 33G EXTRA FINE LANCET) USE [...] Take 17 (seventeen) g by mouth once [id number] g 0 ??? pravastatin (PRAVACHOL) 40 MG [...] status documented in this encounter Care Teams Service Counselor Relationship Specialty Start Date End Date Pankaj Rosenberg MD [address] [facility] [address] [place] [id number] PCP - General 10/06/21 documented as of this encounter
--- OUTSIDE RECORDS SUMMARY | 2024-05-13 11:42 | XMS_ITS | Encounter Summary ---
Author Organization [facility] Address [address] [facility] [place] [address] Care Team Providers Care Sea Captain Name Role Phone Pankaj Rosenberg MD Primary Care Provider [phone] Reason for Visit * Reason Comments Establish Care Gallbladder polyp * Consult, Test & Treat (Routine) - Closed Specialty Diagnoses / Procedures Referred By Horacio espinoza Referred To Contact General Surgery Diagnoses [place] [address] [facility] [address] [place] [address] Referral ID Status Reason Start Date Expiration Date Visits Re quested Visits Authorized [id number] Closed 04/30/2022 04/30/2023 1 1 Encounter Details Date Type Department Care Team (Late st Contact Info) Description 06/17/2022 9:30 AM ENDLESS STEAMER TENDER Office Visit [facility] General Surgery [address] [facility] [place] [phone] Carolyn Miles MD [address] [place] [address] Gallbladder polyp (Primary Dx) Social History Tobacco [...] Comments Blood Pressure 158/97 06/17/2022 9:35 AM ENDLESS STEAMER TENDER Pulse 102 06/17/2022 9:35 AM ENDLESS STEAMER TENDER Temperature 37.1 ??C (98.7 ??F) 06/17/2022 9:35 AM CS T Respiratory Rate - - Oxygen Saturation - - Inhaled Oxygen Concentration - - Weight 122.5 kg (270 lb) 06/17/2022 9:35 AM ENDLESS STEAMER TENDER Height 180.3 cm (5' 11 ) 06/17/2022 9:35 AM ENDLESS STEAMER TENDER Body Mass Index 37.66 06/17/2022 9:35 AM ENDLESS STEAMER TENDER documented in this encounter Functional Status Functional [...] complication, without long-term current use of insulin ([facility]) 06/16/2021 ??? 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 [...] by mouth once daily ??? blood glucose (GeniTOUCH VERIO) test strip USE 1 STRIP TO CHECK BLOOD SUGAR TWICE DAILY Reasons:FOR DIABETES EDUCATION (Patient not taking: Reported on 06/17/2022) 100 strip PRN ??? Blood Glucose Monitoring Suppl (GeniTOUCH VERIO REFLECT) w/Device KIT Use 1 Units 2 times daily USE MACHINE TO CHECK BLOOD SUGAR TWICE DAILY (Patient not taking: Reported on 06/17/2022) 1 kit 0 ??? Lancets (GeniTOUCH DELICA PLUS 33G EXTRA FINE LANCET) USE [...] abnormality Carolyn Miles MD 06/17/2022 9:53 AM ESS STEAMER TENDER documented in this encounter Plan of Treatment Not on file documented as of this encounter Visit Diagnoses Diagnosis Gallbladder polyp- Primary Cholesterolosis of gallbladder documented in this encounter Care Teams Sea Captain Relationship Specialty Start Date End Date Pankaj Rosenberg MD [facility] [facility] [address] [place] [address] PCP - General 10/06/21 documented as of this encounter
--- OUTSIDE RECORDS SUMMARY | 2024-05-13 11:42 | XMS_ITS | Encounter Summary ---
Author Organization [facility] Address [address] [facility] [place] [address] Care Team Providers Care Greenhouse Florist Name Role Phone Bertha Ochoa MD Primary Care Provider [phone] Encounter Details Date Type Department Care Team (Late st Contact Info) Description 09/22/2021 11:59 PM CDT Anesthesia Event [facility] [address] [place] [phone] Alexsandra Ingram DO [address] [place] [address] [place] [address] Anesthesia Record Procedure Summary Procedure Name Responsible [...] and heating? Not hard at all 07/27/2022 [facility] [place] [facility] Occup[facility] ional [facility] - Occupational Stress [...] place to sleep or slept in a longterm (including now)? No 07/27/2022 Sex and Gender [...] on filedocumented in this encounter Care Teams Greenhouse Florist Relationship Specialty Start Date End Date Bertha Ochoa MD [address] [place] [address] PCP - General 09/21/21 10/05/21 documented as of this encounter
--- OUTSIDE RECORDS SUMMARY | 2024-05-13 11:42 | XMS_ITS | Encounter Summary ---
Author Organization [facility] Address [address] [facility] [place] [address] Care Team Providers Care Advertising Material Distributor Name Role Phone Pankaj Rosenberg MD Primary Care Provider [phone] Reason for Visit * Reason Comments Retina Evaluation Encounter Details Date Type Department Care Team (Latest Contact Info) Description 02/24/2022 2:00 PM CDT Office Visit [facility] [address] [place] [address] Alise Serra M, OD [address] [facility] [place] [address] Diabetes mellitus without ophthalmic manifestations [...] the eye. 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
--- OUTSIDE RECORDS SUMMARY | 2024-05-13 11:43 | XMS_ITS | Encounter Summary ---
Author Organization [facility] Address [address] [place] [address] Phone Care Team Providers Care Environmental Protection Officer Name Role Phone Charles Vogel MD Primary Care Provider [phone] Encounter Details Date Type Department Care Team (Late st Contact Info) Description 03/11/2020 Telephone [facility] - Internal Medicine - [place] [address] [place] [address] Charles Vogel MD [address] [place] [address] Social History Tobacco Use Types [...] SENT TO [facility],. SHERI DID JAWBONE PULLER FROM THAT PHARMACY BUT WOULD RATHER NOT. NEW PHARMACY [facility] [place] Call back number:[phone] documented in this encounter Plan of Treatment Not on file documented as of this encounter Visit Diagnoses Not on filedocumented in this encounter Care Teams Environmental Protection Officer Relationship Specialty Start Date End Date Charles Vogel MD [address] [place] [address] PCP - General Internal Medicine 02/21/19 documented as of this encounter
--- OUTSIDE RECORDS SUMMARY | 2024-05-13 11:43 | XMS_ITS | Encounter Summary ---
Author Organization [facility] Address [address] [facility] [place] [address] Phone Care Team Providers Care Distributor Publications Name Role Phone Charles Vogel MD Primary Care Provider [phone] Reason for Visit * Reason Onset Date Comments Medication Refill 03/11/2020 Encounter Details Date Type Department Care Team (Late st Contact Info) Description 03/11/2020 Refill [facility] - Internal Medicine - [place] [address] [place] [phone] Charles Vogel MD [address] [place] [address] Medication Refill Social History Tobacco Use Types [...] on filedocumented in this encounter Care Teams Distributor Publications Relationship Specialty Start Date End Date Charles Vogel MD [address] [place] [address] PCP - General Internal Medicine 02/21/19 documented as of this encounter
--- OUTSIDE RECORDS SUMMARY | 2024-05-13 11:43 | XMS_ITS | Encounter Summary ---
Author Organization [facility] Address [address] [place] [address] Phone Care Team Providers Care Fly Maker Name Role Phone Charles Vogel MD Primary Care Provider Encounter Details Date Type Department Care Team (Late st Contact Info) Description 02/13/2020 Telephone [facility] - Internal Medicine - [place] [address] [place] [address] Charles Vogel MD [address] [...] on filedocumented in this encounter Care Teams Fly Maker Relationship Specialty Start Date End Date Charles Vogel MD [address] [place] [address] PCP - General Internal Medicine 02/21/19 documented as of this encounter
--- OUTSIDE RECORDS SUMMARY | 2024-05-13 11:43 | XMS_ITS | Encounter Summary ---
Author Organization [employer] Care Team Providers Care Measurement Supervisor Name Role Phone Charles Vogel MD Primary Care Provider [phone] Encounter Details Date Type Department Care Team [...] documented as of this encounter Care Teams Measurement Supervisor Relationship Specialty Start Date End Date Charles Vogel MD [address] [place] [address] PCP - General Internal Medicine 02/21/19 documented as of this encounter
--- OUTSIDE RECORDS SUMMARY | 2024-05-13 11:43 | XMS_ITS | Encounter Summary ---
Author Organization [facility] Address [address] [place] [address] Phone Care Team Providers Care Revenue Enforcement Agent Name Role Phone Charles Vogel MD Primary Care Provider [phone] Reason for Visit * Reason Onset Date Comments Results 04/24/2020 Encounter Details Date Type Department Care Team (Late st Contact Info) Description 04/24/2020 Telephone [facility] - [place] [address] [place] [phone] Charles Vogel MD [address] [facility] [place] [address] Results Social History Tobacco Use [...] provider's recommendation. Patient aware and verbalized understanding. IT PROFESSIONAL * Telephone Encounter - Antonieta Angel RN - 04/30/2020 4:43 PM CST Attempted to call patient with results, no answer at this time. Left message to call back. IT PROFESSIONAL * Telephone Encounter - Antonieta Angel RN - 04/24/2020 3:02 PM CST ----- Message from Charles Vogel MD sent at 04/24/2020 3:01 PM CREDIT PROFESSIONAL ----- His LFTs elevated. Needs to change atorvastatin to 20 mg every other night. Repeat ALT/AST in 1 month IT PROFESSIONAL documented in this encounter Plan of Treatment Not on file documented as of this encounter Results * AST (SGOT) (06/05/2020) Blood Charles Vogel MD CHEMISTRY ORDERABLES Final Result * ALT (SGPT) (06/05/2020) Blood Charles Vogel MD CHEMISTRY ORDERABLES Final Result documented in this encounter Visit Diagnoses Diagnosis Abnormal liver function test- Primary Other abnormal blood chemistry documented in this encounter Care Teams Revenue Enforcement Agent Relationship Specialty Start Date End Date Charles Vogel MD [address] [place] [address] PCP - General Internal Medicine 02/21/19 documented as of this encounter
--- OUTSIDE RECORDS SUMMARY | 2024-05-13 11:43 | XMS_ITS | Encounter Summary ---
Author Organization [facility] Address [address] [place] [address] Phone Care Team Providers Care Bag Loader Name Role Phone Charles Vogel MD Primary Care Provider [phone] Encounter Details Date Type Department Care Team (Late st Contact Info) Description 03/11/2021 10:40 AM CDT Lab [facility] - Internal Medicine - [place] [address] [place] [address] [facility] Essential hypertension, benign; [...] 181 <=200 mg/dL 03/11/2021 3:52 PM CDT [facility] TRIGLYCERIDES 119 <150 mg/dL 03/11/2021 3:52 PM CDT [facility] HDL CHOLESTEROL 37.7(L) >40 mg/dL 3:52 PM CDT [facility] LDL 120 5 - 130 mg/dL 03/11/2021 3:52 PM CDT [facility] VLDL 24 5 - 55 mg/dL 03/11/2021 3:52 PM CDT [facility] CHOL/HDL RATIO 4.8(H) 0.0 - 4.4 03/11/2021 3:52 PM CDT [facility] NON-HDL CHOLESTEROL 143.3(H) <130 mg/dL 03/11/2021 3:[address] [facility] IS THE PATIENT REQUIRED TO BE FASTING? Yes 03/11/2021 3:52 PM CDT [facility] HAS THE PATIENT BEEN FASTING? Yes 03/11/2021 3:[address] [facility] Blood Venipuncture / Unknown 03/11/2021 10:57 AM CDT 03/11/2021 10:57 AM CDT us Charles Vogel MD CHEMISTRY ORDERABLES Final Result [facility] [address] [place] [address] * (ABNORMAL) CMP (COMPREHENSIVE METABOLIC PANEL) (03/11/2021 10:57 AM CDT) SODIUM 139 136 - 144 mmol/L 03/11/2021 3:52 PM CDT [facility] POTASSIUM 4.0 3.5 - 5.1 mmol/L 03/11/2021 3:52 PM CDT [facility] CHLORIDE 105 100 - 110 mmol/L 03/11/2021 3:52 PM CDT [facility] CO2, VENOUS 22 22 - 32 mmol/L 03/11/2021 3:[address] [facility] ANION GAP 16.0 8.0 - 20.0 mmol/L 03/11/2021 3:[address] [facility] GLUCOSE 102(H) 70 - 99 mg/dL 03/11/2021 3:52 PM CDT [facility] BUN 15 6 - 20 mg/dL 03/11/2021 3:[address] [facility] CREATININE, BLOOD 0.73(L) 0.80 - 1.30 mg/dL 03/11/2021 3:[address] [facility] BUN/CREATININE RATIO 21(H) 12 - 20 ratio 03/11/2021 3:[address] [facility] TOTAL PROTEIN 7.6 6.0 - 8.3 g/dL 03/11/2021 3:[address] [facility] ALBUMIN 4.4 3.5 - 5.2 g/dL 03/11/2021 3:[address] [facility] Comment: The colormetric methods used for the determination of Albumin may lead to falsely elevated test results in patients suffering from renal failure or insufficiency due to interference with other proteins. A/G RATIO 1.4 1.0 - 2.0 03/11/2021 3:52 PM CDT [facility] CALCIUM 9.7 8.9 - 10.3 mg/dL 03/11/2021 3:52 PM CDT [facility] T BILI 0.7 <=1.2 mg/dL 03/11/2021 3:52 PM CDT [facility] SGOT (AST) 22 <=40 U/L 03/11/2021 3:52 PM CDT [facility] SGPT (ALT) 41 <=41 U/L 03/11/2021 3:52 PM CDT [facility] ALKALINE PHOSPHATASE 100 40 - 130 U/L 03/11/2021 3:52 PM CDT [facility] GFR, EST. NONAFRICAN >60 >=60 03/11/2021 3:52 PM CDT [facility] GFR, EST. >60 >=60 021 3:52 PM CDT [facility] Comment: Creatinine Clearance is the preferred criteria for selecting drug dose adjustments in renally impaired patients. ??The GFR is provided as additional pertinent clinical information. GFR is reported in mL/min/1.73 sq m. IS THE PATIENT REQUIRED TO BE FASTING? No 03/11/2021 3:52 PM CDT [facility] Blood Venipuncture / Unknown 03/11/2021 10:57 AM CDT 03/11/2021 10:57 AM CDT us Charles Vogel MD CHEMISTRY ORDERABLES Final Result [facility] [address] [place] [address] documented in this encounter Visit Diagnoses Diagnosis Essential hypertension, benign Mixed hyperlipidemia Abnormal liver function test Other abnormal blood chemistry documented in this encounter Additional Health Concerns Assessment Noted Time PHQ-9 Depression Total Score: 0 12/12/19 21 9:00 AM CDT documented as of this encounter Care Teams Bag Loader Relationship Specialty Start Date End Date Charles Vogel MD [address] [place] [address] PCP - General Internal Medicine 02/21/19 documented as of this encounter
--- OUTSIDE RECORDS SUMMARY | 2024-05-13 11:43 | XMS_ITS | Encounter Summary ---
Author Organization [facility] Address [address] [place] [address] Phone Care Team Providers Care Inspecting Supervisor Name Role Phone Charles Vogel MD Primary Care Provider [phone] Reason for Referral * Radiology Services (Routine) - Closed Specialty Diagnoses / Procedures Referred By Contac t Referred To Contact Radiology Diagnoses Stomach pain Gall bladder polyp Nausea Constipation, unspecified constipation type Procedures NM HEPATOBILIARY WITH Sonu Bro MD Referral ID Status Reason Start Date Expiration Date Visits Re quested Visits Authorized [id number] Closed 01/15/2021 1 1 Reason for Visit * Radiology Services (Routine) - Closed Specialty Diagnoses / Procedures Referred By Contac t Referred To Contact Radiology Diagnoses Stomach pain Gall bladder polyp Nausea Constipation, unspecified constipation type Procedures NM HEPATOBILIARY WITH Sonu Bro MD Referral ID Status Reason Start Date Expiration Date Visits Re quested Visits Authorized [id number] Closed 01/15/2021 1 1 Encounter Details Date Type Department Care Team (Latest Contact Info) Description 01/21/2021 10:00 AM CDT - 01/21/2021 11:59 PM CDT Hospital Encounter [facility] Nuclear Medicine [address] [place] [id number] Sonu Malave MD Discharge Disposition: Discharged to [...] PM T: ??01/21/2021 12:25 PM Report ID: [id number] Reading Location: ??[id number] Procedure Note Jose López MD - 01/21/2021 [...] Jose López M.D. LB: LB Report ID: [id number] Reading Location: [id number] IMPRESSION: 1. No scintigraphic evidence of common [...] documented as of this encounter Care Teams Inspecting Supervisor Relationship Specialty Start Date End Date Charles Vogel MD [address] [place] [address] PCP - General Internal Medicine 02/21/19 documented as of this encounter
--- OUTSIDE RECORDS SUMMARY | 2024-05-13 11:43 | XMS_ITS | Encounter Summary ---
Author Organization [facility] Address [address] [place] [address] Phone Care Team Providers Care Liquid Hydrogen Plant Operator Name Role Phone Charles Vogel MD Primary Care Provider [phone] Encounter Details Date Type Department Care Team (Late st Contact Info) Description 10/21/2020 Telephone [facility] - Internal Medicine - [place] [address] [place] [address] Charles Vogel MD [address] [place] [address] Social History Tobacco Use Types [...] on filedocumented in this encounter Care Teams Liquid Hydrogen Plant Operator Relationship Specialty Start Date End Date Charles Vogel MD [address] [place] [address] PCP - General Internal Medicine 02/21/19 documented as of this encounter
--- OUTSIDE RECORDS SUMMARY | 2024-05-13 11:43 | XMS_ITS | Encounter Summary ---
Author Organization [facility] Address [address] [place] [address] Phone Care Team Providers Care Tool Coordinator Name Role Phone Charles Vogel MD Primary Care Provider Reason for Visit * Reason Onset Date Comments Medication Refill 03/21/2020 Encounter Details Date Type Department Care Team (Late st Contact Info) Description 03/21/2020 Refill [facility] Medicine - [place] [address] [place] [phone] Charles Vogel MD [address] [place] [address] Medication Refill Social History Tobacco [...] Antonieta Angel RN - 03/21/2020 10:35 AM MICRO COMPUTER DATA PROCESSOR Order pended O COMPUTER DATA PROCESSOR documented in this encounter Plan of Treatment Not on file documented as of this encounter Visit Diagnoses Not on filedocumented in this encounter Care Teams Tool Coordinator Relationship Specialty Start Date End Date Charles Vogel MD [address] [place] [address] PCP - General Internal Medicine 02/21/19 documented as of this encounter
--- OUTSIDE RECORDS SUMMARY | 2024-05-13 11:43 | XMS_ITS | Encounter Summary ---
Author Organization [facility] Address [address] [place] [address] Phone Care Team Providers Care Multiple Needle Stitcher Name Role Phone Charles Vogel MD Primary Care Provider [phone]- [phone] Encounter Details Date Type Department Care Team (Late st Contact Info) Description 09/12/2020 Refill [facility] - Internal Medicine - [place] [address] [place] [address] Charles Vogel MD [address] [place] [address] Social History Tobacco Use Types [...] benign documented in this encounter Care Teams Multiple Needle Stitcher Relationship Specialty Start Date End Date Charles Vogel MD [address] [place] [address] PCP - General Internal Medicine 02/21/19 documented as of this encounter
--- OUTSIDE RECORDS SUMMARY | 2024-05-13 11:43 | XMS_ITS | Encounter Summary ---
Author Organization [facility] Address [address] [place] [address] Phone Care Team Providers Care District Wire Chief Name Role Phone Charles Vogel MD Primary Care Provider [phone]- [phone] Reason for Visit * Reason Onset Date Comments Results 12/18/2020 ultrasound Encounter Details Date Type Department Care Team (Late st Contact Info) Description 12/18/2020 Telephone [facility] Internal Medicine - [place] [address] [place] [phone] Charles Vogel MD [address] [place] [address] Results (ultrasound) Social History Tobacco [...] documented as of this encounter Care Teams District Wire Chief Relationship Specialty Start Date End Date Charles Vogel MD [address] [place] [address] PCP - General Internal Medicine 02/21/19 documented as of this encounter
--- OUTSIDE RECORDS SUMMARY | 2024-05-13 11:43 | XMS_ITS | Encounter Summary ---
Author Organization [facility] Address [address] [place] [address] Phone Care Team Providers Care Wire Preparation Machine Tender Name Role Phone Charles Vogel MD Primary Care Provider Encounter Details Date Type Department Care Team (Late st Contact Info) Description 11/19/2020 Refill [facility] - Internal Medicine - [place] [address] [place] [address] Charles Vogel MD [address] [place] [address] Social History Tobacco Use Types [...] while gone. Pleaseauthorize refill Medication: Lisinopril Pharmacy: [id number] - [place], [place] - [address] [facility] [address] [facility] [address] Call back # [phone] documented in this encounter Plan of Treatment Not on file documented as of this encounter Visit Diagnoses Not on filedocumented in this encounter Care Teams Wire Preparation Machine Tender Relationship Specialty Start Date End Date Charles Vogel MD [address] [place] [address] PCP - General Internal Medicine 02/21/19 documented as of this encounter
--- OUTSIDE RECORDS SUMMARY | 2024-05-13 11:43 | XMS_ITS | Encounter Summary ---
Author Organization [facility] Address [address] [place] [address] Phone Care Team Providers Care Digester Capper Name Role Phone Charles Vogel MD Primary Care Provider [phone] Reason for Referral * Radiology Services (Routine) - Closed Specialty Diagnoses / Procedures Referred By Contac t Referred To Contact Radiology Diagnoses Gallbladder polyp Procedures US ABDOMEN LIMITED LEVEL 3 THREE ORGAN Charles Vogel MD [address] [place] [address] Phone: tel: fax: Referral ID Status Reason Start Date Expiration Date Visits Re quested Visits Authorized [id number] Closed 12/11/2020 1 1 Reason for Visit * Reason Comments Follow-up 6 mo f/u Encounter Details Date Type Department Care Team (Late st Contact Info) Description 12/11/2020 9:30 AM CDT Office Visit [facility] - Internal Medicine - [place] [address] [place] [phone] Charles Vogel MD [address] [place] [address] Essential hypertension, benign (Primary Dx); Mixed [...] this encounter Progress Notes * Zaina Perry, FURNITURE ARRANGER - 12/11/2020 9:30 AM CDT Chuck Guzman [...] - 12/11/2020 9:30 AM CDT PROGRESS NOTE [facility] - INTERNAL MEDICINE [address] [place] [address] PHONE: [phone] FAX: [phone] 12/11/2020 NAME: Chuck Barlow, : 1995, Assessment [...] - 144 mmol/L 03/11/2021 3:52 PM CDT [facility] POTASSIUM 4.0 3.5 - 5.1 mmol/L 03/11/2021 3:52 PM CDT [facility] CHLORIDE 105 100 - 110 mmol/L 03/11/2021 3:52 PM CDT [facility] CO2, VENOUS 22 22 - 32 mmol/L 03/11/2021 3:52 PM CDT [facility] ANION GAP 16.0 8.0 - 20.0 mmol/L 03/11/2021 3:52 PM CDT [facility] GLUCOSE 102(H) 70 - 99 mg/dL 03/11/2021 3:52 PM CDT [facility] BUN 15 6 - 20 mg/dL 03/11/2021 3:52 PM CDT [facility] CREATININE, BLOOD 0.73(L) 0.80 - 1.30 mg/dL 03/11/2021 3:52 PM CDT [facility] BUN/CREATININE RATIO 21(H) 12 - 20 ratio 03/11/2021 3:52 PM CDT [facility] TOTAL PROTEIN 7.6 6.0 - 8.3 g/dL 03/11/2021 3:52 PM CDT [facility] ALBUMIN 4.4 3.5 - 5.2 g/dL 03/11/2021 3:52 PM CDT [facility] Comment: The colormetric methods used for the determination of Albumin may lead to falsely elevated test results in patients suffering from renal failure or insufficiency due to interference with other proteins. A/G RATIO 1.4 1.0 - 2.0 03/11/2021 3:52 PM CDT [facility] CALCIUM 9.7 8.9 - 10.3 mg/dL 03/11/2021 3:52 PM CDT [facility] T BILI 0.7 <=1.2 mg/dL 03/11/2021 3:52 PM CDT [facility] SGOT (AST) 22 <=40 U/L 03/11/2021 3:52 PM CDT [facility] SGPT (ALT) 41 <=41 U/L 03/11/2021 3:52 PM CDT [facility] ALKALINE PHOSPHATASE 100 40 - 130 U/L 03/11/2021 3:52 PM CDT [facility] GFR, EST. NONAFRICAN >60 >=60 03/11/2021 3:52 PM CDT [facility] GFR, EST. >60 >=60 021 3:52 PM CDT [facility] Comment: Creatinine Clearance is the preferred criteria for selecting drug dose adjustments in renally impaired patients. ??The GFR is provided as additional pertinent clinical information. GFR is reported in mL/min/1.73 sq m. IS THE PATIENT REQUIRED TO BE FASTING? No 03/11/2021 3:52 PM CDT [facility] Blood Venipuncture / Unknown 03/11/2021 10:57 AM CDT 03/11/2021 10:57 AM CDT Charles Vogel MD CHEMISTRY ORDERABLES Final Result [facility] [address] [place] [address] * (ABNORMAL) LIPID PANEL (12/19/2020) TOTAL CHOLESTEROL [...] PM T: ??12/17/2020 5:03 PM Report ID: [id number] Reading Location: ??[id number] Procedure Note Joseph More MD - 12/17/2020 [...] Electronically signed by Joseph More M.D. JA: BER Report ID: [id number] Reading Location: [id number] IMPRESSION: 0.6 cm gallbladder polyp, unchanged. Continued follow-up in 1 year. Charles Vogel MD [facility] ORDERABLES Final Res ult documented in this encounter Visit Diagnoses Diagnosis Essential hypertension, benign- Primary Mixed hyperlipidemia Gallbladder polyp Cholesterolosis of gallbladder Nonalcoholic steatohepatitis Other chronic nonalcoholic liver disease Gallbladder polyp Cholesterolosis of gallbladder documented in this encounter Additional Health Concerns Assessment Noted Time PHQ-9 Depression Total Score: 0 12/12/19 21 9:00 AM CDT documented as of this encounter Care Teams Digester Capper Relationship Specialty Start Date End Date Charles Vogel MD [address] [place] [address] PCP - General Internal Medicine 02/21/19 documented as of this encounter
--- OUTSIDE RECORDS SUMMARY | 2024-05-13 11:43 | XMS_ITS | Encounter Summary ---
Author Organization [facility] Address [address] [place] [address] Phone Care Team Providers Care Unit Aid Name Role Phone Charles Vogel MD Primary Care Provider [phone]- [phone] Reason for Visit * Reason Onset Date Comments Labs Only 03/13/2021 Encounter Details Date Type Department Care Team (Late st Contact Info) Description 03/13/2021 Telephone [facility] - [place] [address] [place] [phone] Charles Vogel MD [address] [place] [address] Labs Only Social History Tobacco [...] documented as of this encounter Care Teams Unit Aid Relationship Specialty Start Date End Date Charles Vogel MD [address] [place] [address] PCP - General Internal Medicine 02/21/19 documented as of this encounter
--- OUTSIDE RECORDS SUMMARY | 2024-05-13 11:43 | XMS_ITS | Encounter Summary ---
Author Organization [facility] Address [address] [place] [address] Phone Care Team Providers Care Production Line Technician Name Role Phone Charles Vogel MD Primary Care Provider Encounter Details Date Type Department Care Team (Late st Contact Info) Description 01/27/2021 Telephone [facility] Internal Medicine - [place] [address] [place] [address] Charles Vogel MD [address] [place] [address] Social History Tobacco Use Types [...] sore throat, watery eyes. NKA and uses [employer] [facility]. Call back # [phone] documented in this encounter Plan of Treatment Not on file documented as of this encounter Visit Diagnoses Not on filedocumented in this encounter Additional Health Concerns Assessment Noted Time PHQ-9 Depression Total Score: 0 12/12/19 21 9:00 AM CDT documented as of this encounter Care Teams Production Line Technician Relationship Specialty Start Date End Date [place] [address] [place] [address] PCP - General Internal Medicine 02/21/19 documented as of this encounter
--- OUTSIDE RECORDS SUMMARY | 2024-05-13 11:43 | XMS_ITS | Encounter Summary ---
Author Organization [facility] Address [address] [place] [address] Phone Care Team Providers Care In Store Banker Name Role Phone Charles Vogel MD Primary Care Provider Reason for Visit * Reason Onset Date Comments Results 01/22/2021 Encounter Details Date Type Department Care Team (Late st Contact Info) Description 01/22/2021 Telephone [facility] - Gastroenterology - [place] [address] [place] [address] Sonali Rodarte Jud, [facility] [address] [place] [address] Results Social History Tobacco Use Types Packs/Day [...] documented as of this encounter Care Teams In Store Banker Relationship Specialty Start Date End Date Cahrles Vogel MD [address] [place] [address] PCP - General Internal Medicine 02/21/19 documented as of this encounter
--- OUTSIDE RECORDS SUMMARY | 2024-05-13 11:43 | XMS_ITS | Encounter Summary ---
Author Organization [employer] Care Team Providers Care Residential Treatment Specialist Name Role Phone Charles Vogel MD Primary Care Provider [phone]- [phone] Encounter Details Date Type Department Care Team [...] as of this encounter Care Teams Residential Treatment Specialist Relationship Specialty Start Date End Date Charles Vogel MD [address] [place] [address] PCP - General Internal Medicine 02/21/19 documented as of this encounter
--- OUTSIDE RECORDS SUMMARY | 2024-05-13 11:43 | XMS_ITS | Encounter Summary ---
Author Organization [facility] Address [address] [place] [address] Phone Care Team Providers Care Twist Maker Name Role Phone Charles Vogel MD Primary Care Provider [phone]- [phone] Reason for Referral * Radiology Services (Routine) - Closed Specialty Diagnoses / Procedures Referred By Contac t Referred To Contact Radiology Diagnoses Abnormal liver function test Procedures US ABDOMEN COMPLETE Charles Voegl MD [address] [place] [address] Phone: tel: fax: Referral ID Status Reason Start Date Expiration Date Visits Re quested Visits Authorized [id number] Closed 06/06/2020 1 1 PMENT TECHNICIAN Encounter Details Date Type Department Care Team (Late st Contact Info) Description 06/06/2020 Telephone [facility] - Internal Medicine - [place] [address] [place] [id number] Charles Vogel MD [address] [place] [address] Social History Tobacco Use Types Packs/Day Years Used Date Smoking Tobacco: Never Assessed Sex and Gender Information Value Date Recorded Sex Assigned at Not on file Legal Sex Male 7:15 PM CDT Gender Identity Not on file Sexual Orientation Not on file documented as of this encounter Miscellaneous Notes * Telephone Encounter - Antonieta Angel RN - 06/11/2020 10:21 AM EQUIPMENT TECHNICIAN Phoned patient with lab results and provider's recommendations. Patient aware and verbalized understanding. PMENT TECHNICIAN * Telephone Encounter - Antonieta Angel RN - 06/06/2020 1:51 PM CST Attempted to call patient with results, no answer at this time. Left message to call back. PMENT TECHNICIAN * Telephone Encounter - Antonieta Angel RN - 06/06/2020 1:45 PM CST ----- Message from Charles Vogel MD sent at 06/06/2020 12:58 PM EQUIPMENT TECHNICIAN ----- ALT is worse than before. He needs hepatitis screening blood tests and ultrasound of liver. PMENT TECHNICIAN documented in this encounter Plan of Treatment Not on file documented as of this encounter Results * HEPATITIS C ANTIBODY (06/18/2020 8:37 AM EQUIPMENT TECHNICIAN) hepatitis C antibody 0.13 <1 S/CO [facility] ARCH [id number] 06/18/2020 6:45 PM EQUIPMENT TECHNICIAN [facility] Comment: Signal/Cutoff ratio ??< 0.79 is Nondetected Signal/Cutoff ratio 0.80-0.99 is Grayzone Signal/Cutoff ratio > 0.99 is Detected Supplemental assays are recommended if signal/cutoff ratio is >/=1.00. ??Signal/cutoff ratio result >/= 5.00 is 97% predictive of positivity for recombinant immunoblot assay (RIBA) and will be reported to the [place] Department of Public [facility] as required. Blood Venipuncture / Unknown 06/18/2020 8:37 AM EQUIPMENT TECHNICIAN 06/18/2020 9:07 AM EQUIPMENT TECHNICIAN us Charles Vogel MD CHEMISTRY ORDERABLES Final Result Performing Organization Address [facility] Co de Phone Number [facility] [address] [place] [address], [place] * HEPATITIS B SURFACE ANTIGEN (HBSAG) (06/18/2020 8:37 AM EQUIPMENT TECHNICIAN) HEPATITIS B SURFACE ANTIGEN NON DETECTED NON DETECTED [facility] ARCH [id number] B 06/18/2020 6:45 PM EQUIPMENT TECHNICIAN [facility] Comment:A nonreactive test r esult does not exclude the possibility of exposure to or infection with Hepatitis B virus. A nonreactive test result in individuals with prior exposure to hepatitis B may be due to antigen levels below the detection limit of this assay or lack of antigen reactivity to the antibodies in this assay. Blood Venipuncture / Unknown 06/18/2020 8:37 AM EQUIPMENT TECHNICIAN 06/18/2020 9:07 AM EQUIPMENT TECHNICIAN Charles Vogel MD CHEMISTRY ORDERABLES Final Result Performing Organization Address [facility] Co de Phone Number [facility] [address] [place] [address], [place] * US ABDOMEN COMPLETE (06/18/2020 8:33 AM EQUIPMENT TECHNICIAN) Anatomical Region Laterality Modality Abdomen N/A Ultrasound 06/18/2020 3:49 PM EQUIPMENT TECHNICIAN Impressions 06/18/2020 3:52 PM EQUIPMENT TECHNICIAN IMPRESSION: ?? 1. ?? Increased hepatic echogenicity, as seen with steatosis. 2. ??0.7 cm nodular echogenicity adherent to the gallbladder wall, possibly a polyp or adherent sludge. ??Recommend follow-up ultrasound in 6 months. Narrative 06/18/2020 3:52 PM EQUIPMENT TECHNICIAN EXAM DESCRIPTION: ?? US ABDOMEN COMPLETE [...] PM T: ??06/18/2020 3:49 PM Report ID: [id number] Reading Location: ??[id number] Procedure Note Larry Carlos MD - 06/18/2020 [...] signed by Larry Carlos BG: Report ID: [id number] Reading Location: [place] [address] IMPRESSION: 1. Increased hepatic echogenicity, as seen [...] chemistry documented in this encounter Care Teams Twist Maker Relationship Specialty Start Date End Date Charles Vogel MD [address] [place] [address] PCP - General Internal Medicine 02/21/19 documented as of this encounter
--- OUTSIDE RECORDS SUMMARY | 2024-05-13 11:43 | XMS_ITS | Encounter Summary ---
Author Organization [facility] Address [address] [place] [address] Phone Care Team Providers Care Customer Service Driver Name Role Phone Charles Vogel MD Primary Care Provider [phone]- [phone] Reason for Visit * Reason Onset Date Comments Medication Refill 04/01/2020 Medication Refill 04/02/2020 Encounter Details Date Type Department Care Team (Late st Contact Info) Description 04/01/2020 Refill [facility] - Internal Medicine - [place] [address] [address] Charles Vogel MD [address] [place] [address] Medication Refill; Medication Refill Social [...] CST Call to pt who is aware. 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 Please review: much too early to fill. 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 yes MEDICATION(S): amlodipine 5 mg 2 x day PHARMACY: [id number] [place], [place] - [address] [facility] [address] [facility] [address] CALL BACK NUMBER:[phone] Patient only received 14 pills on last refil and is going out of town needs another refill OOD PROCESS WORKER documented in this encounter Plan of Treatment Not on file documented as of this encounter Visit Diagnoses Diagnosis Essential hypertension, benign- Primary documented in this encounter Care Teams Customer Service Driver Relationship Specialty Start Date End Date Charles Vogel MD [address] [place] [address] PCP - General Internal Medicine 02/21/19 documented as of this encounter
--- OUTSIDE RECORDS SUMMARY | 2024-05-13 11:43 | XMS_ITS | Encounter Summary ---
Author Organization [facility] Address [address] [facility] [place] [address] Care Team Providers Care University Demonstrator Name Role Phone Maria Alejandra Benjamin MD Primary Care Provider [phone] Reason for Visit * Auth/Cert Specialty Diagnoses / Procedures Referred By Horacio t Referred To Contact Diagnoses Small Bowel Obstruction Referral ID Status Reason Start Date Expiration Date Visits Re quested Visits Authorized [id number] 1 1 Encounter Details Date Type Department Care Team (Late st Contact Info) Description 09/17/2021 9:40 AM CDT - 09/17/2021 12:15 PM CDT Surgery [facility] [address] [place] [address] Cindi Cesar MD [address] [place] [address] LAPAROTOMY EXPLORATORY, BOWEL RESECTION, ENTROLYSIS Surgery Details Date/Time Status Location OR Service Patient Class Case Class Case Type Trauma Case? 09/17/2021 9:40 AM Posted [facility] OR OR 02 General Inpatient Panel [...] Physician Discharge Summary Patient ID: Chuck Cannon [id number] 26 year old male 1995 Admit date: [...] to age 4 who was transferred to [facility] on OSH on 09/15 for evaluation of small bowel obstruction requiring NG decompression for management of symptoms, with OSH SBFT revealing no contrast in colon after 4 hours but some after 8 hours. He was transferred to [facility] for further evaluation and management. Hospital Course: [...] the PACU. Post-operatively, patient initially required Dilaudid LAB AIDE for pain control. This was discontinued on [...] PT, OT, Regional and Acute Pain Service, It Quality Assurance Analyst Procedures: 09/17/21 - exploratory laparotomy, small bowel [...] Your Medications These medications were sent to [facility] - [address] [facility] [address] [address] [facility] [address] ?? Alcohol Prep 70 % ?? ONETOUCH DELICA PLUS 33G EXTRA FINE LANCET ?? OneTouch Verio Reflect w/Device Kit ?? OneTouch Verio test strip Follow-up Information Maria Alejandra Benjamin MD . Specialty: Family Medicine Geriatric Medicine Why: follow up with pcp in 1-2 weeks Contact information: [address] [place] [address] Discharge Instructions None Signed: Akhil Potter MD General Surgery PGY-3 09/22/2021 3:55 PM documented in this encounter Discharge Instructions * Discharge Instructions* Elvia Hawkins, CHEF'S ASSISTANT-HIGH RISK CASE MANAGER - 09/22/2021 7:27 AM CDT Images from the original note were not included. [facility] GENERAL SURGERY PATIENT DISCHARGE INSTRUCTIONS Date of [...] prior to your discharge. The number is [phone]. Option 1 for General Surgery. Acute Care Surgery Patients: [facility] Surgery [facility]- [address] [place] [address] During Business Hours Questions or Concerns (Adult Patients) 1. Please call the general surgery office at [phone] Outside Business Hours Questions or Concerns (Adult Patients) 1. Please call [facility] Baggage And Mail Agent at [phone] and have the General Surgery cold reduction roller resident paged. Medications: You have been provided a prescription for: Medication List START taking these medications Alcohol Prep 70 % USE 1 SWAB TO CLEAN SKIN TWICE DAILY BEFORE TESTING cyclobenzaprine 10 MG tablet Commonly known as: Flexeril Take 1 (one) tablet by mouth 3 times daily HYDROcodone-acetaminophen 7.5-325 MG tablet Commonly known as: [place] Take 1 (one) tablet by mouth every [...] Your Medications These medications were sent to [facility] - [address] [facility] [address] [address] [facility] [address] Alcohol Prep 70 % cyclobenzaprine 10 MG [...] the number listed above or call the [facility] ([phone]) and ask for the Acute Care Surgery Resident cold reduction roller. A prescription for a different narcotic can [...] Care Everywhere. * Bowel Obstruction (Inpatient Care) (Colombian) documented in this encounter Medications at Time [...] TESTING 100 Each 09/16/2021 06/29/2022 blood glucose (Optizen labsUCH VERIO) test stripIndications:FOR DIABETES EDUCATION USE 1 STRIP TO CHECK BLOOD SUGAR TWICE DAILY Reasons: FOR DIABETES EDUCATION 100 strip 09/16/2021 06/29/2022 Blood Glucose Monitoring Suppl (TradoriaTOUCH VERIO REFLECT) w/Device KIT Use 1 Units [...] for Pain 12 tablet 09/22/2021 03/21/2022 Lancets (Optizen labsUCH DELICA PLUS 33G EXTRA FINE LANCET) USE [...] questions, please contact the outpatient pharmacy at [phone]. Emiliano Mcdonald [facility] at [address], [address] Floor [place], [place] [address] Hours of Operation Tuesday - Tuesday: 8:00am to 6:00pm Tuesday: 9:00am to 1:00pm Epic: [facility] *Ensure the patient and clinic's nearby ZIP codes box is unchecked* * Virginia López RN - 09/22/2021 9:49 AM CDT Discharge To Home Discharge Date: 09/22/2021 Transportation at time of Discharge: Patient arranged Comments: Patient discharged home no further case management needs. Virginia López RN Case audience development manager: [phone] 09/22/2021 * Nicole Shipman PTA - 09/22/2021 8:20 AM CDT [facility] PhysicalTherapy Progress Note Patient: Chuck Cannon Med Record Number: [id number] Date of : 1995 Age: [age] year old Face Mask: Therapist and Debi REDDY wore a surgical mask and eye protection Pt wore a surgical mask [facility] Discharge Recommendation: Patient should be able to [...] will perform home exercise program independently ?? Sleeve Machine Tender Goal(s): Patient to be independent/baseline with functional [...] Hartman OT - 09/21/2021 3:40 PM CDT [facility] Occupational Therapy Progress Note/DC summary Patient: Chuck Cannon [facility] Record Number: [id number] Date of : 1995 Age: [age] year [...] Independently Patient will transfer to toilet Independently [facility] Goal:Patient to be independent/baseline with functional mobility [...] and with family in room. * Kenzie Stone, PT - 09/21/2021 1:11 PM CDT [facility] PhysicalTherapy Progress Note Patient: Chuck Cannon Med Record Number: [id number] Date of : 1995 Age: [age] year [...] will perform home exercise program independently ?? Sleeve Machine Tender Goal(s): Patient to be independent/baseline with functional [...] pre-op epidural for post-op pain management. Subjective: LAB AIDE discontinued overnight last night. Patient reporting 8/10 [...] as a child who was transferred to [facility] from OSH on 09/15 for evaluation of [...] room air - Adequate UOP (0.54) - LAB AIDE discontinued yesterday and transitioned to oral pain [...] as a child who was transferred to [facility] from OSH on 09/15 for evaluation of [...] pre-op epidural for post-op pain management. Subjective: LAB AIDE with adequate pain control over last 24 [...] 3.4 4.5 3.8 Pain Management Meds: dilaudid LAB AIDE 0.4 q15m - attempts/doses given matched well overnight Adjuvants: toradol, lidocaine patches, dilaudid PRN Assessment: Pain Relief/Comfort Goal Met: Yes Anticoagulant Use Checked: Yes Plan: - dicontinue LAB AIDE - schedule oxycodone 10mg q4h with breakthrough [...] as a child who was transferred to [facility] from OSH on 09/15 for evaluation of [...] - Adequate UOP (0.67) - Continues on LAB AIDE, patient reports increased pain with coughing - [...] as a child who was transferred to [facility] from OSH on 09/15 for evaluation of [...] bowel function. NEURO: #Post-operative pain - Dilaudid LAB AIDE per pain team - Multimodal pain regimen: [...] appears well controlled on current regimen with director of federal sales. Denies n/v/f/c/cp/sob. Tolerating PO (sips clears) and having flatus this afternoon. Afebrile, hemodynamically normal, on RA with end tidal co2 monitoring. Can start clears, miralax/docusate/senna. ADAT. Get off LAB AIDE tomorrow if andres clears and transition to [...] care of this patient. Cindi Cesar MD medical clinic manager Trauma / Critical Care / Acute Care [...] pain management. Subjective: Epidural removed yesterday 09/18. LAB AIDE controlling his pain adequately. NGT still in [...] Potter MD ??? HYDROmorphone (Dilaudid) 0.2 mg/ml LAB AIDE Intravenous LAB AIDE Angelina Ingram DO New Bag at ??? [...] 4.5 3.8 - Pain Management Meds: dilaudid LAB AIDE 0.4 q15m - attempts/doses given matched well overnight Adjuvants: toradol, lidocaine patches, dilaudid PRN Assessment: Pain Relief/Comfort Goal Met: Yes Anticoagulant Use Checked: Yes Plan: - Continue LAB AIDE until tolerating PO, then can transition from LAB AIDE to oxycodone PO. - Would recommend starting with oxycodone 10mg q4h scheduled for at least 24 hours to adequately cover his pain and then can de-escalate pending tolerance. - Continue to encourage bowel regimen and early ambulation as tolerates. - Encourage incentive spirometery The patient was seen and the plan was discussed with my attending Dr. Suráez. Angelina Ingram, DO Anesthesiology and Critical Care [...] as a child who was transferred to [facility] from OSH on 09/15 for evaluation of [...] with 1L LR bolus - Continues on LAB AIDE with pain well-controlled today - NG remains [...] as a child who was transferred to [facility] from OSH on 09/15 for evaluation of [...] bowel function. NEURO: #Post-operative pain - Dilaudid LAB AIDE per pain team - Multimodal pain regimen: [...] care of this patient. Cindi Cesar MD medical clinic manager Trauma / Critical Care / Acute Care [...] Jimenez PT - 09/18/2021 3:16 PM CDT [facility] Physical Therapy Initial Evaluation Note Patient: Chuck Cannon [facility] Record Number: [id number] Date of : 1995 Age: [age] year [...] agreed to proceed with treatment; currently utilizing LAB AIDE ?? OBJECTIVE: General Appearance: 26 yo male supine, NAD Precautions: IV's: Peripheral line, epidural line, NG/Dobbhoff, LAB AIDE, catheter Edema: None noted ?? Vitals: (*Assess [...] Patient will perform home exercise program independently [facility] Goal(s): Patient to be independent/baseline with functional [...] 0 exploratory laparotomy, small bowel resection, enterolysis. -LAB AIDE pump initiated for pain -NPO -NG tube [...] Resources Provided: Patient refused Medication affordability concerns: [place]: Virginia López RN Case audience development manager: [phone] 09/18/2021 * Angelina Ingram DO - 09/18/2021 [...] hours or SQH in 2 hours. Continue LAB AIDE at dose as written. Will re-evaluate for [...] as a child who was transferred to [facility] from OSH on 09/15 for evaluation of [...] - Increased pain overnight, now improved following LAB AIDE adjustment per pain team - NG remains [...] as a child who was transferred to [facility] from OSH on 09/15 for evaluation of [...] bowel function. NEURO: #Post-operative pain - Dilaudid LAB AIDE per pain team - Multimodal pain regimen: [...] RENAL: - Ash in place while on LAB AIDE - UOP adequate 0.48cc/kg/hr - Electrolyte repletion [...] are below: Postoperative abdominal pain improved with LAB AIDE. Epidural was removed this morning by pain [...] care of this patient. Cindi Cesar MD medical clinic manager Trauma / Critical Care / Acute Care / Burn Surgeon * Michelle Montesinos, OT - 09/18/2021 8:49 AM CDT [facility] Occupational Therapy Initial Evaluation Note Patient: Chuck Cannon [facility] Record Number: [id number] Date of : 1995 Age: [age] year [...] agreed to proceed with treatment; currently utilizing LAB AIDE OBJECTIVE: General Appearance: 26 yo male supine, NAD Precautions: IV's: Peripheral line, epidural line, NG/Dobbhoff, LAB AIDE, catheter Edema: None noted Vitals: (*Assess the [...] Independently Patient will transfer to toilet Independently Sleeve Machine Tender Goal: Patient to be independent/baseline with functional [...] mIVF -Tachycardia - possibly secondary to pain- LAB AIDE adjusted per pain recs - LR 1L bolus ordered - NG to remain in place, awaiting return of bowel function - CBC - Strict Is/Os - dressings, dry and intact - continue post op care, This note was written with the aid of Medical student Marley MS4 . Patient care was discussed withchief cold reduction roller Tod Ingram MD 09/17/2021 9:19 PM * [...] small bowel obstruction. Patient originally presented to [facility] on 09/11 with 3 day history of abdominal pain. Patient underwent a small bowel follow through on 09/13 which did not show contrast in the colon in 4 hours, but some contrast in the colon in the 8 hours. Patient had an NGtube placed on 09/14 and he was transferred to [facility] today. Patient states that he has not [...] input(s): PROTIME, INR, PTT in the last 91501 hours. RECENT IMAGING: SMFT 09/16/21: Small bowel [...] small bowel obstruction. Leandra originally presented to [facility] on 09/11 with 3 day history of abdominal pain. Patient underwent a small bowel follow through on 09/13 which did not show contrast in the colon in 4 hours, but some contrast in the colon in the 8 hours. Patient had an NG tube placed on 09/14 and he was transferred to [facility] 09/15/21. Patient underwent CT A/P on 09/15 [...] care of this patient. Cindi Cesar MD medical clinic manager * Virginia López RN - 09/16/2021 4:24 [...] Information Primary Emergency Contact: Lizeth Cannon Address: [address] [place] [address] Relation: Other Patient or off premise service representative requests care coordination reach out to [...] true [employer] Resources Provided: Patient refused Glass Toughening Operator Referral: No If patient requires HHC at discharge, he/she requests: Will continue to follow. For any questions or needs please contact: Water And Fire Technician Name/Phone number: Virginia López RN Case audience development manager: [phone] 09/16/2021 * Rene Szymanski, PharmD - 09/16/2021 [...] questions, please contact the outpatient pharmacy at [phone]. Rene Szymanski, Claims Technician [facility] at [address], [address] Floor [place], [place] [address] Hours of Operation Tuesday - Tuesday: 8:00am to 6:00pm Tuesday: 9:00am to 1:00pm [facility]: [facility] *Ensure the patient and clinic's nearby [...] small bowel obstruction. Patient originally presented to [facility] on 09/11 with 3 day history of abdominal pain. Patient underwent a small bowel follow through on 09/13 which did not show contrast in the colon in 4 hours, but some contrast in the colon in the 8 hours. Patient had an NGtube placed on 09/14 and he was transferred to [facility] today. Patient states that he has not [...] input(s): PROTIME, INR, PTT in the last 408[address] hours. RECENT IMAGING: CT Abdomen Pelvis w [...] small bowel obstruction. Leandra originally presented to [facility] on 09/11 with 3 day history of abdominal pain. Patient underwent a small bowel follow through on 09/13 which did not show contrast in the colon in 4 hours, but some contrast in the colon in the 8 hours. Patient had an NG tube placed on 09/14 and he was transferred to [facility] 09/15/21. Patient underwent CT A/P on 09/15 [...] care of this patient. Cindi Cesar MD medical clinic manager * Celeste Payne RN - 09/15/2021 2:46 PM CDT Report received from BRYANT Dahl at [facility]. Patient transfer set up for 2:30pm to [facility]. documented in this encounter H&P Notes * Akhil Potter MD - 09/15/2021 5:58 PM CDT Images from the original note were not included. Acute Care Surgery Inpatient Consult Note Chuck Cannon (26 year old male) Date of : 1995 Admit Date: 09/15/2021 Date of consult: 09/15/2021 Hospital day: 0 Room: [facility]/ Reason for consult: Small bowel obstruction Requesting Physician: Ananda Gilbert DO History of Present Illness: Patient is a 26 year old male with PMH of HTN, HLD, DM2, GERD, gastroschisis who presented as a transfer from [facility] for evaluation of small bowel obstruction. Patient originally presented to [facility] on 09/11 with 3 day history of abdominal pain. Patient underwent a small bowel follow through on 09/13 which did not show contrast in the colon in 4 hours, but some contrast in the colon in the 8 hours. Patient had an NG tube placed on 09/14 and he was transferred to [facility] today. Patient has a history of gastroschisis [...] WBC, HGB, HCT, PLTCOUNT in the last 37536 hours. BMP No results for input(s): NA, POTASSIUM, CL, CO2, BUN, CREATININE, GLUCOSE, CALCIUM, MAGNESIUM, PHOSin the last 26374 hours. LFTs No results for input(s): PROT, ALB, TBILI, ALT, AST, ALKPHOS in the last 72027 hours. Coag No results for input(s): PT, PTT, INR in the last 11818 hours. Cardiac markers No results for input(s): CKTOTAL, CKMB, TROPONINI in the last 03908 hours. Iron Studies No results for input(s): FERRITIN, TRANSFERRIN, IRON, RETICCTPCT, RETICULOCYTE in the last 68398 hours. Urine: UA No results for input(s): COLORU, CLARITYU, PHUR, PROTEINTO, GLUCOSEU, KETONES, BILIRUBINUR, BLOODU,EGFR, NITRITE, UROBILINOGEN, WBCU, RBCU, URINEBACT, YEASTBUDDING in the last 24253 hours. Invalid input(s): LABSPEC, LUEKOCYTE, MUCOUSU UDS No results for input(s): OPIATESUR, LABAMPH, LABBARB, LABBENZ, COCAINESCRN, METHADONE, LABPHEN, LABCANN in the last 71812 hours. Other Blood Alcohol (BAL): No results for input(s): ETOH in the last 10022 hours. Serum Acetaminophen: No results for input(s): ACETAMINO in the last 41336 hours. Serum Salicylate:No results for input(s): SALICYLATE in the last 70070 hours. Microbiology: Microbiology Results (Displays last 21 days for this encounter ONLY) No results found for the last 504 hours. Radiology Impressions: No results found. Pathology: No recent pathology Assessment: Chuck Cannon is a 26 year old male with PMH of HTN, HLD, DM2, GERD, gastroschisis who presented as a transfer from [facility] for evaluation of small bowel obstruction. Leandra originally presented to [facility] on 09/11 with 3 day history of abdominal pain. Patient underwent a small bowel follow through on 09/13 which did not show contrast in the colon in 4 hours, but some contrast in the colon in th e 8 hours. Patient had an NG tube placed on 09/14 and he was transferred to [facility] today. Patient has ahistory of gastroschisis and reportedny two small bowel resections for small bowel obstruction prior to the age of 4. Patient is currently afebrile, hemodynamically stable, non peritonitic on exam, so no acute surgical intervention is indicated. Will obtain CT A/P with IV contrast and leave NG to [facility]. #SBO -NPO, mIVF -NG to LIWS [...] expect > 2 Midnights. Cindi Cesar MD medical clinic manager documented in this encounter Consult Notes * Ana Apodaca RN - 09/21/2021 12:00 PM CDT Inpatient It Quality Assurance Analyst Note Today's Date: 09/21/21 Chuck Cannon is [...] patient's care. Ana Apodaca RN, , [place] It Quality Assurance Analyst * Gloria Monsalve - 09/18/2021 8:38 AM CDTAssociated Order(s): IP CONSULT TO MEDIA AID Substance Abuse - Brief Intervention Referral due [...] Has alcohol brief intervention been completed by social work associate/therapist?: Yes Gloria Monsalve Phone: [phone] 09/18/2021 * Ana Apodaca RN - 09/17/2021 9:58 AM CDT Inpatient It Quality Assurance Analyst Note Today's Date: 09/17/21 Chuck Cannon is [...] your patient's care. Ana Apodaca RN, , [facility] It Quality Assurance Analyst * Ana Apodaca RN - 09/16/2021 11:51 AM CDT Inpatient It Quality Assurance Analyst Note Today's Date: 09/16/21 Chuck Cannon is [...] device, lancets and test strips ordered through [facility] outpatient pharmacy. Compliance With Medications: Patient takes [...] patient's care. Ana Apodaca RN, , [place] It Quality Assurance Analyst documented in this encounter OR Notes * [...] A Serna MD - Resident - Assisting Group Home Worker(s): Marley MS4 Anesthesia Type: general ETT Complications: [...] implants in log * Cindi Cesar MD medical clinic manager Trauma / Critical Care / Acute Care [...] 3 AM CDT Small bowel obstruction (HCC) MS EXPLORATORY OF ABDOMEN 09/17/2021 10:49 AM CDT [...] - 115 mg/dL 09/22/2021 7:[address] [facility] Specimen Type Cap Fingerstick 2021 7:[address] [facility] Blood BLOOD SPECIMEN / Unknown 09/22/2021 7:52 AM CDT 09/22/2021 7:57 AM CDT Ananda Gilbert DO LAB - POINT OF CARE ORDERABLES Performing Organization Address City/[facility]/ZIP Co de Phone Number [address] [address], [facility] [phone] * GLUCOSE - POINT OF CARE (09/22/2021 4:23 AM CDT) Glucose WB/POC 114 70 - 115 mg/dL 09/22/2021 4:[address] [facility] Specimen Type Cap Fingerstick 2021 4:[address] [facility] Blood BLOOD SPECIMEN / Unknown 09/22/2021 4:23 AM CDT 09/22/2021 4:27 AM CDT Ananda Gilbert DO LAB - POINT OF CARE ORDERABLES [address] [address], [place] [phone] * PHOSPHORUS BLOOD (09/22/2021 2:52 AM CDT) Phosphorus 4.5 2.8 - 5.1 mg/dL 09/22/2021 3:[address] [facility] Blood BLOOD SPECIMEN / Unknown Lab Venipuncture / Unknown 09/22/2021 2:52 AM CDT 09/22/2021 3:19 AM CDT Ananda Orellana Vladimir LAB - CHEMISTRY [facility] [address] [address], [place] [phone] * MAGNESIUM BLOOD (09/22/2021 2:52 AM CDT) Magnesium 1.9 1.6 - 2.6 mg/dL 09/22/2021 3:[address] [facility] Blood BLOOD SPECIMEN / Unknown Lab Venipuncture / Unknown 09/22/2021 2:52 AM CDT 09/22/2021 3:19 AM CDT Ananda Orellana Vladimir LAB - CHEMISTRY ORDPatricia REYES [address] [address], [place] [phone] * (ABNORMAL) CBC W/O DIFFERENTIAL (09/22/2021 2:52 AM CDT) WBC 9.5 3.5 - 10.5 10? 3 /uL 09/22/2021 3:[address] [facility] RBC 4.29(L) 4.30 - 5.70 10? 6 /uL 09/22/2021 3:[address] [facility] Hemoglobin 12.0 12.0 - 17.6 g/dL 09/22/2021 3:[address] [facility] Hematocrit 36.4 35.2 - 51.7 % 09/22/2021 3:30 AM [facility] MCV 84.8 80.7 - 98.3 fL 09/22/2021 3:30 AM [facility] MCH 28.0 26.7 - 34.0 pg 09/22/2021 3:30 AM [facility] MCHC 33.0 30.8 - 35.9 g/dL 09/22/2021 3:30 AM [facility] Platelet Count 291 150 - 400 10? 3 /uL 09/22/2021 3:30 AM [facility] RDW-SD 37.0 36.0 - 50.0 fL 09/22/2021 3:30 AM [facility] RDW-CV 12.2 11.2 - 14.8 % 09/22/2021 3:30 AM [facility] MPV 10.8 9.4 - 12.9 fL 09/22/2021 3:30 AM [facility] nRBC Absolute 0.00 0 10? 3 /uL 09/22/2021 3:30 AM [facility] nRBC Auto 0.0 0 /100 WBC 09/22/2021 3:30 AM [facility] Blood BLOOD SPECIMEN / Unknown Lab Venipuncture / Unknown 09/22/2021 2:52 AM CDT 09/22/2021 3:18 AM CDT Ananda Gilbert DO LAB - HEMATOLOGY ORD ERABLES [facility] [address] [place] [address], [facility] [phone] * (ABNORMAL) BASIC METABOLIC PANEL (CALCIUM TOTAL) (09/22/2021 2:52 AM CDT) BUN 8 7 - 26 mg/dL 09/22/2021 3:58 AM [facility] Creatinine 0.80 0.71 - 1.16 mg/dL 09/22/2021 3:58 AM [facility] Sodium 141 136 - 145 mmol/L 09/22/2021 3:58 AM [facility] Potassium 4.1 3.5 - 4.5 mmol/L 09/22/2021 3:58 AM [facility] Comment:Hemolysis detected i n this specimen. Hemolysis may cause false elevations in potassium leading to pseudohyperkalemia or masked hypokalemia. Recommend repeat testing if clinically indicated. Chloride 105 98 - 107 mmol/L 09/22/2021 3:58 AM [facility] CO2 23 22 - 29 mmol/L 09/22/2021 3:58 AM [facility] Glucose 116(H) 70 - 115 mg/dL 09/22/2021 3:58 AM [facility] Calcium 9.6 8.4 - 10.2 mg/dL 09/22/2021 3:58 AM [facility] Anion Gap 17 8 - 18 09/22/2021 3:58 AM [facility] BUN/Creatinine Ratio 10 7 - 23 09/13 3:58 AM [facility] Osmolality Calculated 291 270 - 300 mOsm/kg 09/22/2021 3:58 AM [facility] eGFR by CKD-EPI >90 >=90 mL/min/1. 73 m2 09/22/2021 3:58 AM [facility] Blood BLOOD SPECIMEN / Unknown Lab Venipuncture / Unknown 09/22/2021 2:52 AM CDT 09/22/2021 3:19 AM CDT Ananda Gilbert DO LAB - CHEMISTRY TRAY REYES [facility] Organization Address City/State/ZIP Co de Phone Number [facility] [address] [place] [address], [facility] [phone] * GLUCOSE - POINT OF CARE (09/22/2021 12:10 AM CDT) Glucose WB/POC 99 70 - 115 mg/dL 09/22/2021 12:30 AM [facility] Specimen Type Cap Fingerstick 2021 12:30 AM [facility] Blood BLOOD SPECIMEN / Unknown 09/22/2021 12:10 AM CDT 09/22/2021 12:30 AM CDT Ananda Gilbert DO LAB - POINT OF CARE ORDERABLES [address] [address], [place] [phone] * (ABNORMAL) GLUCOSE - POINT OF CARE (09/21/2021 8:38 PM CDT) Glucose WB/POC 133(H) 70 - 115 mg/dL 09/21/2021 8:53 PM CDT [facility] Specimen Type Cap Fingerstick 2021 8:[address] [facility] Blood BLOOD SPECIMEN / Unknown 09/21/2021 8:38 PM CDT 09/21/2021 8:53 PM CDT Ananda Gilbert DO LAB - POINT OF CARE ORDERABLES [address] [address], [place] [phone] * GLUCOSE - POINT OF CARE (09/21/2021 5:10 PM CDT) Glucose WB/POC 107 70 - 115 mg/dL 09/21/2021 5:[address] [facility] Specimen Type Cap Fingerstick 2021 5:[address] [facility] Blood BLOOD SPECIMEN / Unknown 09/21/2021 5:10 PM CDT 09/21/2021 5:17 PM CDT Ananda Gilbert DO LAB - POINT OF CARE ORDERABLES [address] [address], [place] [phone] * GLUCOSE - POINT OF CARE (09/21/2021 11:56 AM CDT) Glucose WB/POC 95 70 - 115 mg/dL 09/21/2021 12:[address] [facility] Specimen Type Cap Fingerstick 2021 12:[address] [facility] Blood BLOOD SPECIMEN / Unknown 09/21/2021 11:56 AM CDT 09/21/2021 12:01 PM CDT Ananda Gilbert DO LAB - POINT OF CARE ORDERABLES Performing Organization Address City/[facility]/ZIP Co de Phone Number [facility] [address] [place] [address], [place] [phone] * GLUCOSE - POINT OF CARE (09/21/2021 7:27 AM CDT) Glucose WB/POC 113 70 - 115 mg/dL 09/21/2021 7:[address] [facility] Specimen Type Cap Fingerstick 2021 7:[address] [facility] Blood BLOOD SPECIMEN / Unknown 09/21/2021 7:27 AM CDT 09/21/2021 7:31 AM CDT Ananda Gilbert DO LAB - POINT OF CARE ORDERABLES Performing Organization Address City/[facility]/ZIP Co de Phone Number [facility] [address] [place] [phone], [place] [phone] * GLUCOSE - POINT OF CARE (09/21/2021 4:29 AM CDT) Glucose WB/POC 99 70 - 115 mg/dL 09/21/2021 4:[address] [facility] Specimen Type Cap Fingerstick 2021 4:[address] [facility] Blood BLOOD SPECIMEN / Unknown 09/21/2021 4:29 AM CDT 09/21/2021 4:34 AM CDT Ananda Goodrichper DO LAB - POINT OF CARE ORDERABLES [facility] [address] [place] [address], [place] [phone] * PHOSPHORUS BLOOD (09/21/2021 2:35 AM CDT) Phosphorus 4.1 2.8 - 5.1 mg/dL 09/21/2021 3:[address] [facility] Blood BLOOD SPECIMEN / Unknown Venipuncture / Unknown 09/21/2021 2:35 AM CDT 09/21/2021 2:45 AM CDT Ananda Goodrichper LAB - CHEMISTRY ORDPatricia REYES Performing Organization Address [facility]/ZIP Co de Phone Number [address] [address], [facility] [phone] * MAGNESIUM BLOOD (09/21/2021 2:35 AM CDT) Pathologist [facility] Magnesium 1.8 1.6 - 2.6 mg/dL 09/21/2021 3:[address] [facility] Blood BLOOD SPECIMEN / Unknown Venipuncture / Unknown 09/21/2021 2:35 AM CDT 09/21/2021 2:45 AM CDT Ananda Orellana Vladimir GORDON LAB - CHEMISTRY ORDPatricia REYES Performing Organization Address [facility]/State/ZIP Co de Phone Number [address] [address], [facility] [phone] * (ABNORMAL) CBC W/O DIFFERENTIAL (09/21/2021 2:35 AM CDT) [facility] WBC 10.1 3.5 - 10.5 10? 3 /uL 09/21/2021 2:52 AM [facility] RBC 3.80(L) 4.30 - 5.70 10? 6 /uL 09/21/2021 2:52 AM [facility] Hemoglobin 10.7(L) 12.0 - 17.6 g/dL 09/21/2021 2:52 AM [facility] Hematocrit 32.3(L) 35.2 - 51.7 % 09/21/2021 2:52 AM [facility] MCV 85.0 80.7 - 98.3 fL 09/21/2021 2:52 AM [facility] MCH 28.2 26.7 - 34.0 pg 09/21/2021 2:[address] [facility] MCHC 33.1 30.8 - 35.9 g/dL 09/21/2021 2:52 AM [facility] Platelet Count 316 150 - 400 10? 3 /uL 09/21/2021 2:52 AM [facility] RDW-SD 37.1 36.0 - 50.0 fL 09/21/2021 2:52 AM [facility] RDW-CV 11.9 11.2 - 14.8 % 09/21/2021 2:52 AM [facility] MPV 10.0 9.4 - 12.9 fL 09/21/2021 2:52 AM [facility] nRBC Absolute 0.00 0 10? 3 /uL 09/21/2021 2:52 AM [facility] nRBC Auto 0.0 0 /100 WBC 09/21/2021 2:52 AM [facility] Blood BLOOD SPECIMEN / Unknown Venipuncture / Unknown 09/21/2021 2:35 AM CDT 09/21/2021 2:45 AM CDT Ananda Gilbert DO LAB - HEMATOLOGY ORD ERABLES [facility] [address] [place] [address], [facility] [phone] * (ABNORMAL) BASIC METABOLIC PANEL (CALCIUM TOTAL) (09/21/2021 2:35 AM CDT) BUN 5(L) 7 - 26 mg/dL 09/21/2021 3:11 AM [facility] Creatinine 0.58(L) 0.71 - 1.16 mg/dL 09/21/2021 3:11 AM [facility] Sodium 141 136 - 145 mmol/L 09/21/2021 3:11 AM [facility] Potassium 3.4(L) 3.5 - 4.5 mmol/L 09/21/2021 3:11 AM [facility] Chloride 103 98 - 107 mmol/L 09/21/2021 3:11 AM [facility] CO2 27 22 - 29 mmol/L 09/21/2021 3:11 AM [facility] Glucose 107 70 - 115 mg/dL 09/21/2021 3:11 AM [facility] Calcium 9.3 8.4 - 10.2 mg/dL 09/21/2021 3:11 AM [facility] Anion Gap 14 8 - 18 09/21/2021 3:11 AM [facility] BUN/Creatinine Ratio 9 7 - 23 09/21/2021 3:11 AM [facility] Osmolality Calculated 290 270 - 300 mOsm/kg 09/21/2021 3:11 AM [facility] eGFR by CKD-EPI >90 >=90 mL/min/1.7 3 m2 09/21/2021 3:11 AM [facility] Blood BLOOD SPECIMEN / Unknown Venipuncture / Unknown 09/21/2021 2:35 AM CDT 09/21/2021 2:45 AM CDT Ananda Gilbert DO LAB - CHEMISTRY ORDE RABLES [address] [address], [place] [phone] * (ABNORMAL) GLUCOSE - POINT OF CARE (09/21/2021 1:04 AM CDT) Glucose WB/POC 124(H) 70 - 115 mg/dL 09/21/2021 1:09 AM [facility] Specimen Type Cap Fingerstick 2021 1:09 AM [facility] Blood BLOOD SPECIMEN / Unknown 09/21/2021 1:04 AM CDT 09/21/2021 1:08 AM CDT Ananda Gilbert DO LAB - POINT OF CARE ORDERABLES [address] [address], [place] [phone] * (ABNORMAL) GLUCOSE - POINT OF CARE (09/20/2021 8:03 PM CDT) Glucose WB/POC 141(H) 70 - 115 mg/dL 09/20/2021 8:42 PM CDT [facility] Specimen Type Cap Fingerstick 2021 8:[address] [facility] Blood BLOOD SPECIMEN / Unknown 09/20/2021 8:03 PM CDT 09/20/2021 8:42 PM CDT Ananda Orellana Vladimir DO LAB - POINT OF CARE ORDERABLES [address] [address], [place] [phone] * (ABNORMAL) GLUCOSE - POINT OF CARE (09/20/2021 4:47 PM CDT) Glucose WB/POC 121(H) 70 - 115 mg/dL 09/20/2021 4:[address] [facility] Specimen Type Cap Fingerstick 2021 4:[address] [facility] Blood BLOOD SPECIMEN / Unknown 09/20/2021 4:47 PM CDT 09/20/2021 4:52 PM CDT Ananda A Vladimir DO LAB - POINT OF CARE ORDERABLES [address] [address], [place] [phone] * (ABNORMAL) GLUCOSE - POINT OF CARE (09/20/2021 12:09 PM CDT) Glucose WB/POC 148(H) 70 - 115 mg/dL 09/20/2021 12:17 PM CDT [facility] Specimen Type Cap Fingerstick 2021 12:[address] [facility] Blood BLOOD SPECIMEN / Unknown 09/20/2021 12:09 PM CDT 09/20/2021 12:17 PM CDT Ananda Gilbert DO LAB - POINT OF CARE ORDERABLES [address] [address], [facility] [phone] * PHOSPHORUS BLOOD (09/20/2021 9:35 AM CDT) Phosphorus 3.7 2.8 - 5.1 mg/dL 09/20/2021 10:[address] [facility] Blood BLOOD SPECIMEN / Unknown Lab Venipuncture / Unknown 09/20/2021 9:35 AM CDT 09/20/2021 9:40 AM CDT Ananda Gilbert DO LAB - CHEMISTRY ORDE TERRELLMATHIEU Performing Organization Address City/[facility]/ZIP Co de Phone Number [address] [address], [facility] [phone] * MAGNESIUM BLOOD (09/20/2021 9:35 AM CDT) Magnesium 1.8 1.6 - 2.6 mg/dL 09/20/2021 10:[address] [facility] Blood BLOOD SPECIMEN / Unknown Lab Venipuncture / Unknown 09/20/2021 9:35 AM CDT 09/20/2021 9:40 AM CDT Ananda Reyna Vladimir GORDON LAB - CHEMISTRY TRAY REYES [address] [address], [facility] [phone] * (ABNORMAL) CBC W/O DIFFERENTIAL (09/20/2021 9:35 AM CDT) WBC 9.9 3.5 - 10.5 10? 3 /uL 09/20/2021 9:[address] [facility] RBC 4.03(L) 4.30 - 5.70 10? 6 /uL 09/20/2021 9:[address] [facility] Hemoglobin 11.3(L) 12.0 - 17.6 g/dL 09/20/2021 9:44 AM [facility] Hematocrit 34.4(L) 35.2 - 51.7 % 09/20/2021 9:44 AM [facility] MCV 85.4 80.7 - 98.3 fL 09/20/2021 9:44 AM [facility] MCH 28.0 26.7 - 34.0 pg 09/20/2021 9:44 AM [facility] MCHC 32.8 30.8 - 35.9 g/dL 09/20/2021 9:44 AM [facility] Platelet Count 323 150 - 400 10? 3 /uL 09/20/2021 9:44 AM [facility] RDW-SD 37.4 36.0 - 50.0 fL 09/20/2021 9:44 AM [facility] RDW-CV 12.0 11.2 - 14.8 % 09/20/2021 9:44 AM [facility] MPV 9.7 9.4 - 12.9 fL 09/20/2021 9:44 AM [facility] nRBC Absolute 0.00 0 10? 3 /uL 09/20/2021 9:44 AM [facility] nRBC Auto 0.0 0 /100 WBC 09/20/2021 9:44 AM [facility] Blood BLOOD SPECIMEN / Unknown Lab Venipuncture / Unknown 09/20/2021 9:35 AM CDT 09/20/2021 9:40 AM T Ananda Gilbert DO LAB - HEMATOLOGY ORD ERABLES [facility] [address] [place] [address], [facility] [phone] * (ABNORMAL) BASIC METABOLIC PANEL (CALCIUM TOTAL) (09/20/2021 9:35 AM CDT) BUN 5(L) 7 - 26 mg/dL 09/20/2021 10:10 AM [facility] Creatinine 0.60(L) 0.71 - 1.16 mg/dL 09/20/2021 10:10 AM [facility] Sodium 141 136 - 145 mmol/L 09/20/2021 10:10 AM [facility] Potassium 3.6 3.5 - 4.5 mmol/L 09/20/2021 10:10 AM [facility] Chloride 103 98 - 107 mmol/L 09/20/2021 10:10 AM [facility] CO2 25 22 - 29 mmol/L 09/20/2021 10:10 AM [facility] Glucose 126(H) 70 - 115 mg/dL 09/20/2021 10:10 AM [facility] Calcium 9.3 8.4 - 10.2 mg/dL 09/20/2021 10:10 AM [facility] Anion Gap 17 8 - 18 09/20/2021 10:10 AM [facility] BUN/Creatinine Ratio 8 7 - 23 09/20/2021 10:10 AM [facility] Osmolality Calculated 291 270 - 300 mOsm/kg 09/20/2021 10:10 AM [facility] eGFR by CKD-EPI >90 >=90 mL/min/1.7 3 m2 09/20/2021 10:10 AM [facility] Blood BLOOD SPECIMEN / Unknown Lab Venipuncture / Unknown 09/20/2021 9:35 AM CDT 09/20/2021 9:40 AM CDT Ananda Gilbert DO LAB - CHEMISTRY TRAY REYES [facility] Organization Address [facility]/State/[facility] Co de Phone Number [facility] [address] [place] [address], [facility] [phone] * (ABNORMAL) GLUCOSE - POINT OF CARE (09/20/2021 8:48 AM CDT) Glucose WB/POC 124(H) 70 - 115 mg/dL 09/20/2021 8:57 AM [facility] Specimen Type Cap Fingerstick 2021 8:57 AM [facility] Blood BLOOD SPECIMEN / Unknown 09/20/2021 8:48 AM CDT 09/20/2021 8:56 AM CDT Ananda Gilbert DO LAB - POINT OF CARE ORDERABLES [address] [address], [place] [phone] * (ABNORMAL) GLUCOSE - POINT OF CARE (09/20/2021 4:44 AM CDT) Glucose WB/POC 127(H) 70 - 115 mg/dL 09/20/2021 4:54 AM CDT [facility] Specimen Type Cap Fingerstick 2021 4:[address] [facility] Blood BLOOD SPECIMEN / Unknown 09/20/2021 4:44 AM CDT 09/20/2021 4:53 AM CDT Ananda Gilbert DO LAB - POINT OF CARE ORDERABLES Performing Organization Address City/[facility]/ZIP Co de Phone Number [address] [address], [place] [phone] * (ABNORMAL) GLUCOSE - POINT OF CARE (09/20/2021 12:38 AM CDT) Glucose WB/POC 136(H) 70 - 115 mg/dL 09/20/2021 12:[address] [facility] Specimen Type Cap Fingerstick 2021 12:[address] [facility] Blood BLOOD SPECIMEN / Unknown 09/20/2021 12:38 AM CDT 09/20/2021 12:45 AM CDT Ananda Gilbert DO LAB - POINT OF CARE ORDERABLES [address] [address], [place] [phone] * (ABNORMAL) GLUCOSE - POINT OF CARE (09/19/2021 8:04 PM CDT) Glucose WB/POC 125(H) 70 - 115 mg/dL 09/19/2021 8:[address] [facility] Specimen Type Cap Fingerstick 2021 8:[address] [facility] Blood BLOOD SPECIMEN / Unknown 09/19/2021 8:04 PM CDT 09/19/2021 8:08 PM CDT Ananda Goodrichper DO LAB - POINT OF CARE ORDERABLES [address] [address], [place] [phone] * (ABNORMAL) GLUCOSE - POINT OF CARE (09/19/2021 4:24 PM CDT) Glucose WB/POC 139(H) 70 - 115 mg/dL 09/19/2021 4:[address] [facility] Specimen Type Arterial 09/19/2021 4:[address] [facility] Blood BLOOD SPECIMEN / Unknown 09/19/2021 4:24 PM CDT 09/19/2021 4:25 PM CDT Ananda Gilbert DO LAB - POINT OF CARE ORDERABLES Performing Organization Address City/[facility]/ZIP Co de Phone Number [address] [address], [place] [phone] * (ABNORMAL) GLUCOSE - POINT OF CARE (09/19/2021 11:33 AM CDT) Glucose WB/POC 127(H) 70 - 115 mg/dL 09/19/2021 11:[address] [facility] Specimen Type Arterial 09/19/2021 11:[address] [facility] Blood BLOOD SPECIMEN / Unknown 09/19/2021 11:33 AM CDT 09/19/2021 11:34 AM CDT Ananda Goodrichper DO LAB - POINT OF CARE ORDERABLES [address] [address], [place] [phone] * (ABNORMAL) GLUCOSE - POINT OF CARE (09/19/2021 8:08 AM CDT) Glucose WB/POC 121(H) 70 - 115 mg/dL 09/19/2021 8:18 AM CDT [facility] Specimen Type Arterial 09/19/2021 8:[address] [facility] Blood BLOOD SPECIMEN / Unknown 09/19/2021 8:08 AM CDT 09/19/2021 8:18 AM CDT Ananda Gilbert DO LAB - POINT OF CARE ORDERABLES [address] [address], [place] [phone] * GLUCOSE - POINT OF CARE (09/19/2021 4:50 AM CDT) Glucose WB/POC 104 70 - 115 mg/dL 09/19/2021 4:[address] [facility] Specimen Type Cap Fingerstick 2021 4:[address] [facility] Blood BLOOD SPECIMEN / Unknown 09/19/2021 4:50 AM CDT 09/19/2021 4:50 AM CDT Ananda Gilbert DO LAB - POINT OF CARE ORDERABLES [address] [address], [place] [phone] * (ABNORMAL) PHOSPHORUS BLOOD (09/19/2021 3:37 AM CDT) Phosphorus 2.6(L) 2.8 - 5.1 mg/dL 09/19/2021 4:[address] [facility] Blood BLOOD SPECIMEN / Unknown Lab Venipuncture / Unknown 09/19/2021 3:37 AM CDT 09/19/2021 3:45 AM CDT Anadna Gilbert DO LAB - CHEMISTRY ORDE TERRELLMATHIEU Performing Organization Address City/[facility]/ZIP Co de Phone Number [facility] [address] [place] [address], [facility] [phone] * MAGNESIUM BLOOD (09/19/2021 3:37 AM CDT) Pathologist [facility] Magnesium 1.7 1.6 - 2.6 mg/dL 09/19/2021 4:[address] [facility] Blood BLOOD SPECIMEN / Unknown Lab Venipuncture / Unknown 09/19/2021 3:37 AM CDT 09/19/2021 3:45 AM CDT Ananda Gilbert DO LAB - CHEMISTRY ZIPatricia ERIC Performing Organization Address [facility]/ZIP Co de Phone Number [facility] [address] [place] [address], [facility] [phone] * CBC W/O DIFFERENTIAL (09/19/2021 3:37 AM CDT) Pathologist [facility] WBC 7.8 3.5 - 10.5 10? 3 /uL 09/19/2021 4:05 AM [facility] RBC 4.33 4.30 - 5.70 10? 6 /uL 09/19/2021 4:05 AM [facility] Hemoglobin 12.0 12.0 - 17.6 g/dL 09/19/2021 4:05 AM [facility] Hematocrit 37.0 35.2 - 51.7 % 09/19/2021 4:05 AM [facility] MCV 85.5 80.7 - 98.3 fL 09/19/2021 4:05 AM [facility] MCH 27.7 26.7 - 34.0 pg 09/19/2021 4:05 AM [facility] MCHC 32.4 30.8 - 35.9 g/dL 09/19/2021 4:05 AM [facility] Platelet Count 287 150 - 400 10? 3 /uL 09/19/2021 4:05 AM [facility] RDW-SD 37.6 36.0 - 50.0 fL 09/19/2021 4:05 AM [facility] RDW-CV 12.1 11.2 - 14.8 % 09/19/2021 4:05 AM [facility] MPV 10.0 9.4 - 12.9 fL 09/19/2021 4:05 AM [facility] nRBC Absolute 0.00 0 10? 3 /uL 09/19/2021 4:05 AM [facility] nRBC Auto 0.0 0 /100 WBC 09/19/2021 4:05 AM [facility] Blood BLOOD SPECIMEN / Unknown Lab Venipuncture / Unknown 09/19/2021 3:37 AM CDT 09/19/2021 3:46 AM T Ananda Gilbert DO LAB - HEMATOLOGY ORD ERABLES [facility] [address] [place] [address], [facility] [phone] * BASIC METABOLIC PANEL (CALCIUM TOTAL) (09/19/2021 3:37 AM CDT) BUN 9 7 - 26 mg/dL 09/19/2021 4:19 AM [facility] Creatinine 0.73 0.71 - 1.16 mg/dL 09/19/2021 4:19 AM [facility] Sodium 140 136 - 145 mmol/L 09/19/2021 4:19 AM [facility] Potassium 3.5 3.5 - 4.5 mmol/L 09/19/2021 4:19 AM [facility] Chloride 105 98 - 107 mmol/L 09/19/2021 4:19 AM [facility] CO2 23 22 - 29 mmol/L 09/19/2021 4:19 AM [facility] Glucose 104 70 - 115 mg/dL 09/19/2021 4:19 AM [facility] Calcium 8.6 8.4 - 10.2 mg/dL 09/19/2021 4:19 AM [facility] Anion Gap 16 8 - 18 09/19/2021 4:19 AM CDT [facility] BUN/Creatinine Ratio 12 7 - 23 09/19/2021 4:[address] [facility] Osmolality Calculated 289 270 - 300 mOsm/kg 09/19/2021 4:[address] [facility] eGFR by CKD-EPI >90 >=90 mL/min/1.7 3 m2 09/19/2021 4:[address] [facility] Blood BLOOD SPECIMEN / Unknown Lab Venipuncture / Unknown 09/19/2021 3:37 AM CDT 09/19/2021 3:45 AM CDT Ananda Gilbert DO LAB - CHEMISTRY ORDE RABLES [address] [address], [place] [phone] * GLUCOSE - POINT OF CARE (09/19/2021 12:13 AM CDT) Glucose WB/POC 112 70 - 115 mg/dL 09/19/2021 12:[address] [facility] Specimen Type Cap Fingerstick 2021 12:[address] [facility] Blood BLOOD SPECIMEN / Unknown 09/19/2021 12:13 AM CDT 09/19/2021 12:20 AM CDT Ananda Gilbert DO LAB - POINT OF CARE ORDERABLES [facility] [address] [place] [id number], [place] [phone] * GLUCOSE - POINT OF CARE (09/18/2021 8:01 PM CDT) Glucose WB/POC 98 70 - 115 mg/dL 09/18/2021 8:[address] [facility] Specimen Type Cap Fingerstick 2021 8:[address] [facility] Blood BLOOD SPECIMEN / Unknown 09/18/2021 8:01 PM CDT 09/18/2021 8:02 PM CDT Ananda Gilbert DO LAB - POINT OF CARE ORDERABLES Performing Organization Address City/[facility]/ZIP Co de Phone Number [facility] [address] [place] [id number], [place] [phone] * GLUCOSE - POINT OF CARE (09/18/2021 5:11 PM CDT) Glucose WB/POC 107 70 - 115 mg/dL 09/18/2021 5:12 PM CDT [facility] Specimen Type Arterial 09/18/2021 5:[address] [facility] Blood BLOOD SPECIMEN / Unknown 09/18/2021 5:11 PM CDT 09/18/2021 5:12 PM CDT Ananda Gilbert DO LAB - POINT OF CARE ORDERABLES Performing Organization Address [facility]/ZIP Co de Phone Number [address] [address], [place] [phone] * (ABNORMAL) GLUCOSE - POINT OF CARE (09/18/2021 12:04 PM CDT) Glucose WB/POC 125(H) 70 - 115 mg/dL 09/18/2021 12:[address] [facility] Specimen Type Arterial 09/18/2021 12:[address] [facility] Blood BLOOD SPECIMEN / Unknown 09/18/2021 12:04 PM CDT 09/18/2021 12:05 PM CDT Ananda Gilbert DO LAB - POINT OF CARE ORDERABLES Performing Organization Address City/[facility]/ZIP Co de Phone Number [address] [address], [place] [phone] * (ABNORMAL) GLUCOSE - POINT OF CARE (09/18/2021 7:57 AM CDT) Glucose WB/POC 126(H) 70 - 115 mg/dL 09/18/2021 11:[address] [facility] Specimen Type Arterial 09/18/2021 11:[address] [facility] Blood BLOOD SPECIMEN / Unknown 09/18/2021 7:57 AM CDT 09/18/2021 11:47 AM CDT Ananda Orellana Vladimir [facility] - POINT OF CARE ORDERABLES Performing Organization Address City/[facility]/ZIP Co de Phone Number [address] [address], [place] [phone] * (ABNORMAL) GLUCOSE - POINT OF CARE (09/18/2021 4:34 AM CDT) Glucose WB/POC 136(H) 70 - 115 mg/dL 09/18/2021 7:[address] [facility] Specimen Type Cap Fingerstick 2021 7:[address] [facility] Blood BLOOD SPECIMEN / Unknown 09/18/2021 4:34 AM CDT 09/18/2021 7:23 PM CDT Ananda Orellana Vladimir [facility] - POINT OF CARE ORDERABLES Performing Organization Address [facility]/ZIP Co de Phone Number [address] [address], [place] [phone] * PHOSPHORUS BLOOD (09/18/2021 3:06 AM CDT) Phosphorus 3.4 2.8 - 5.1 mg/dL 09/18/2021 3:[address] [facility] Blood BLOOD SPECIMEN / Unknown Lab Venipuncture / Unknown 09/18/2021 3:06 AM CDT 09/18/2021 3:16 AM CDT Ananda Reyna Vladimir [facility] LAB - CHEMISTRY ORDE RABLES [address] [address], [place] [phone] * MAGNESIUM BLOOD (09/18/2021 3:06 AM CDT) Magnesium 2.2 1.6 - 2.6 mg/dL 09/18/2021 3:47 AM [facility] Blood BLOOD SPECIMEN / Unknown Lab Venipuncture / Unknown 09/18/2021 3:06 AM CDT 09/18/2021 3:16 AM CDT Ananda Gilbert DO LAB - CHEMISTRY [place] [facility] [address] [place] [address], [facility] [phone] * (ABNORMAL) CBC W/O DIFFERENTIAL (09/18/2021 3:06 AM CDT) WBC 10.7(H) 3.5 - 10.5 10? 3 /uL 09/18/2021 3:24 AM [facility] RBC 4.46 4.30 - 5.70 10? 6 /uL 09/18/2021 3:24 AM [facility] Hemoglobin 12.6 12.0 - 17.6 g/dL 09/18/2021 3:24 AM [facility] Hematocrit 38.5 35.2 - 51.7 % 09/18/2021 3:24 AM [facility] MCV 86.3 80.7 - 98.3 fL 09/18/2021 3:24 AM [facility] MCH 28.3 26.7 - 34.0 pg 09/18/2021 3:24 AM [facility] MCHC 32.7 30.8 - 35.9 g/dL 09/18/2021 3:24 AM [facility] Platelet Count 380 150 - 400 10? 3 /uL 09/18/2021 3:24 AM [facility] RDW-SD 38.5 36.0 - 50.0 fL 09/18/2021 3:24 AM [facility] RDW-CV 12.2 11.2 - 14.8 % 09/18/2021 3:24 AM [facility] MPV 10.0 9.4 - 12.9 fL 09/18/2021 3:24 AM [facility] nRBC Absolute 0.00 0 10? 3 /uL 09/18/2021 3:24 AM [facility] nRBC Auto 0.0 0 /100 WBC 09/18/2021 3:24 AM [facility] Blood BLOOD SPECIMEN / Unknown Lab Venipuncture / Unknown 09/18/2021 3:06 AM CDT 09/18/2021 3:16 AM CDT Ananda Gilbert DO LAB - HEMATOLOGY ORD ERABLES [facility] [address] [place] [address], [facility] [phone] * (ABNORMAL) BASIC METABOLIC PANEL (CALCIUM TOTAL) (09/18/2021 3:06 AM T) BUN 11 7 - 26 mg/dL 09/18/2021 3:47 AM [facility] Creatinine 0.84 0.71 - 1.16 mg/dL 09/18/2021 3:47 AM [facility] Sodium 139 136 - 145 mmol/L 09/18/2021 3:47 AM [facility] Potassium 4.4 3.5 - 4.5 mmol/L 09/18/2021 3:47 AM [facility] Chloride 108(H) 98 - 107 mmol/L 09/18/2021 3:47 AM [facility] CO2 22 22 - 29 mmol/L 09/18/2021 3:47 AM [facility] Glucose 133(H) 70 - 115 mg/dL 09/18/2021 3:47 AM [facility] Calcium 9.1 8.4 - 10.2 mg/dL 09/18/2021 3:47 AM [facility] Anion Gap 13 8 - 18 09/18/2021 3:47 AM [facility] BUN/Creatinine Ratio 13 7 - 23 09/18/2021 3:47 AM [facility] Osmolality Calculated 289 270 - 300 mOsm/kg 09/18/2021 3:47 AM [facility] eGFR by CKD-EPI >90 >=90 mL/min/1.7 3 m2 09/18/2021 3:47 AM [facility] Blood BLOOD SPECIMEN / Unknown Lab Venipuncture / Unknown 09/18/2021 3:06 AM CDT 09/18/2021 3:16 AM CDT Ananda Orellana Vladimir [facility] - CHEMISTRY ORDE ERIC Performing Organization Address City/[facility]/ZIP Co de Phone Number [address] [address], [facility] [phone] * (ABNORMAL) GLUCOSE - POINT OF CARE (09/18/2021 12:39 AM CDT) Glucose WB/POC 135(H) 70 - 115 mg/dL 09/18/2021 11:[address] [facility] Specimen Type Cap Fingerstick 2021 11:[address] [facility] Blood BLOOD SPECIMEN / Unknown 09/18/2021 12:39 AM CDT 09/18/2021 11:47 AM CDT Ananda Orellana Vladimir [facility] - POINT OF CARE ORDERABLES Performing Organization Address [facility]/ZIP Co de Phone Number [address] [address], [facility] [phone] * XR ABDOMEN KUB PORTABLE (09/17/2021 9:12 [...] MD, FRCR on 09/18/2021 10:34 AM . Annada Gilbert DO DIAGNOSTIC IMAGING O RDERABLES * (ABNORMAL) GLUCOSE - POINT OF CARE (09/17/2021 8:01 PM CDT) Glucose WB/POC 163(H) 70 - 115 mg/dL 09/17/2021 8:[address] [facility] Specimen Type Cap Fingerstick 2021 8:[address] [facility] Blood BLOOD SPECIMEN / Unknown 09/17/2021 8:01 PM CDT 09/17/2021 8:42 PM CDT Ananda Gilbert DO LAB - POINT OF CARE ORDERABLES [facility] [address] [place] [address], [facility] [phone] * (ABNORMAL) CBC W AUTO DIFFERENTIAL (09/17/2021 7:33 PM CDT) WBC 15.3(H) 3.5 - 10.5 10? 3 /uL 09/17/2021 8:44 PM [facility] RBC 4.76 4.30 - 5.70 10? 6 /uL 09/17/2021 8:44 PM [facility] Hemoglobin 13.5 12.0 - 17.6 g/dL 09/17/2021 8:44 PM [facility] Hematocrit 40.5 35.2 - 51.7 % 09/17/2021 8:44 PM [facility] MCV 85.1 80.7 - 98.3 fL 09/17/2021 8:44 PM [facility] MCH 28.4 26.7 - 34.0 pg 09/17/2021 8:44 PM [facility] MCHC 33.3 30.8 - 35.9 g/dL 09/17/2021 8:44 PM [facility] Platelet Count 426(H) 150 - 400 10? 3 /uL 09/17/2021 8:44 PM [facility] RDW-SD 37.2 36.0 - 50.0 fL 09/17/2021 8:44 PM [facility] RDW-CV 12.1 11.2 - 14.8 % 09/17/2021 8:44 PM [facility] MPV 10.0 9.4 - 12.9 fL 09/17/2021 8:44 PM [facility] nRBC Absolute 0.00 0 10? 3 /uL 09/17/2021 8:44 PM [facility] nRBC Auto 0.0 0 /100 WBC 09/17/2021 8:44 PM [facility] Neutrophils % 89.3(H) 35.0 - 70.0 % 09/17/2021 8:44 PM [facility] Lymphocytes % 4.9(L) 20.0 - 43.0 % 09/17/2021 8:44 PM [facility] Monocytes % 4.8(L) 5.0 - 13.0 % 09/17/2021 8:44 PM CDT [facility] Eosinophils % 0.0 0.0 - 6.0 % 09/17/2021 8:[address] [facility] Basophil % 0.3 0.0 - 2.0 % 09/17/2021 8:44 PM [facility] Neutrophils Absolute 13.6(H) 1.6 - 7.0 10? 3 /uL 09/17/2021 8:44 PM [facility] Lymphocyte Absolute 0.7(L) 1.1 - 3.9 10? 3 /uL 09/17/2021 8:[address] [facility] Monocytes Absolute 0.73 0.26 - 1.07 10? 3 /uL 09/17/2021 8:44 PM [facility] Eosinophils Absolute 0.00 0.00 - 0.47 10? 3 /uL 09/17/2021 8:[address] [facility] Basophils Absolute 0.04 0.00 - 0.08 10? 3 /uL 09/17/2021 8:44 PM [facility] Immature Granulocytes % 0.7 0.0 - 1.0 % 09/17/2021 8:44 PM [facility] Immature Granulocytes Absolute 0.11 09/17/2021 8:44 PM [facility] Blood BLOOD SPECIMEN / Unknown Lab Venipuncture / Unknown 09/17/2021 7:33 PM CDT 09/17/2021 8:39 PM CDT Ananda Gilbert DO LAB - HEMATOLOGY ORD ERABLES Performing Organization Address [facility] Co de Phone Number [address] [address] [phone] * (ABNORMAL) GLUCOSE - POINT OF CARE (09/17/2021 6:14 PM CDT) Glucose WB/POC 147(H) 70 - 115 mg/dL 09/18/2021 12:[address] [facility] Specimen Type Arterial 09/18/2021 12:28 AM [facility] Blood BLOOD SPECIMEN / Unknown 09/17/2021 6:14 PM CDT 09/18/2021 12:28 AM CDT Ananda Orellana Vladimir DO LAB - POINT OF CARE ORDERABLES Performing Organization Address [facility] de Phone Number [address] [address], [facility] [phone] * (ABNORMAL) GLUCOSE - POINT OF CARE (09/17/2021 12:39 PM CDT) Glucose WB/POC 136(H) 70 - 115 mg/dL 09/17/2021 8:04 PM CDT [facility] Specimen Type Cap Fingerstick 2021 8:[address] [facility] Blood BLOOD SPECIMEN / Unknown 09/17/2021 12:39 PM CDT 09/17/2021 8:04 PM CDT Ananda Gilbert DO LAB - POINT OF CARE ORDERABLES Performing Organization Address [facility] de Phone Number [address] [address], [facility] [phone] * PATHOLOGY TISSUE (09/17/2021 11:23 AM CDT) Case Report Surgical Pathology Report ? Case: [id number] ? Authorizing Provider: ??Cindi Cesar, ??Collected: ? 09/17/2021 11:23 AM ? MD ? Ordering Location: ? [facility] ?Received: ?09/17/2021 01:42 PM ? Pathologist: ? Steffany Sarmiento MD ? Specimen: ?Colon Ileum, ileum ? 09/21/2021 3:28 PM [facility] Final Diagnosis Small intestine, ileum, resection (A): - Serosal adhesions, stricture, and focal ulceration - Surgical margins viable - See comment 09/21/2021 3:28 PM [facility] Microscopic Description and Comment Microscopic examination substantiates the final diagnosis. 09/21/2021 3:28 PM [facility] Clinical History The patient [...] to the umbilicus, transected. 09/21/2021 3:28 PM [facility] Gross Description The requisition and [...] [place]-pink mucosa with the normal folding pattern. Revenue Stamp Clerk sections are submitted as follows: [id number]-clloarx, en face, A3-strictured area/serosal disruption, A4-uninvolved 09/21/2021 3:28 PM CDT [facility] Disclaimer The performance characteristics of all immunohistochemical and indirect immunofluorescence stains (if any) cited in this report were determined by the Histopathology Laboratory of [facility]. Some of these tests were developed by [...] attending (teaching) pathologist. 09/21/2021 3:28 PM CDT [facility] Embedded Images 09/21/2021 3:28 PM CDT [facility] Biopsy, Excision ENTIRE ILEUM / Unknown 09/17/2021 11:23 AM CDT 09/17/2021 1:42 PM CDT Comment:Pre-op diagnosis: Small bowel obstruction [K56.609] Cindi Cesar MD LAB - PATHOLO GY/CYTOLOGY ORDERABLES Performing Organization Address [facility]/State/[facility] Phone Number [facility] [address] [phone] * [place] SMALL BOWEL SERIES (09/17/2021 10:45 [...] of colon (contrast is seen on the renewals representative exam within the ascending colon, positioned near [...] of colon (contrast is seen on the renewals representative exam within the ascending colon,positioned near midline, from prior outside exam). IMPRESSION: High-grade or complete small bowel obstruction. This report was electronically signed by CITLALLI WELLINGTON M.D. on 09/17/2021 2:18 PM . Ananda Gilbert DO FLUOROSCOPY ORDERABL ES * (ABNORMAL) GLUCOSE - POINT OF CARE (09/17/2021 8:07 AM CDT) Glucose WB/POC 141(H) 70 - 115 mg/dL 09/17/2021 8:41 AM CDT [facility] Specimen Type Arterial 09/17/2021 8:[address] [facility] Blood BLOOD SPECIMEN / Unknown 09/17/2021 8:07 AM CDT 09/17/2021 8:41 AM CDT Ananda Gilbert DO LAB - POINT OF CARE ORDERABLES Performing Organization Address City/[facility]/ZIP Co de Phone Number [address] [address], [place] [phone] * (ABNORMAL) GLUCOSE - POINT OF CARE (09/17/2021 4:35 AM CDT) Glucose WB/POC 130(H) 70 - 115 mg/dL 09/17/2021 4:[address] [facility] Specimen Type Cap Fingerstick 2021 4:[address] [facility] Blood BLOOD SPECIMEN / Unknown 09/17/2021 4:35 AM CDT 09/17/2021 4:35 AM CDT Ananda Gilbert DO LAB - POINT OF CARE ORDERABLES Performing Organization Address City/[facility]/ZIP Co de Phone Number [address] [address], [place] [phone] * PHOSPHORUS BLOOD (09/17/2021 2:28 AM CDT) Phosphorus 4.5 2.8 - 5.1 mg/dL 09/17/2021 3:[address] [facility] Blood BLOOD SPECIMEN / Unknown Lab Venipuncture / Unknown 09/17/2021 2:28 AM CDT 09/17/2021 2:42 AM CDT Ananda Gilbert DO LAB - CHEMISTRY [place] [address] [place] [address], [facility] [phone] * MAGNESIUM BLOOD (09/17/2021 2:28 AM CDT) Pathologist [facility] Magnesium 2.5 1.6 - 2.6 mg/dL 09/17/2021 3:24 AM [facility] Blood BLOOD SPECIMEN / Unknown Lab Venipuncture / Unknown 09/17/2021 2:28 AM CDT 09/17/2021 2:42 AM CDT Ananda Gilbert DO LAB - CHEMISTRY ZIE ERIC [address] [address], [facility] [phone] * (ABNORMAL) CBC W/O DIFFERENTIAL (09/17/2021 2:28 AM CDT) WBC 13.8(H) 3.5 - 10.5 10? 3 /uL 09/17/2021 2:54 AM [facility] RBC 5.14 4.30 - 5.70 10? 6 /uL 09/17/2021 2:54 AM [facility] Hemoglobin 14.5 12.0 - 17.6 g/dL 09/17/2021 2:54 AM [facility] Hematocrit 43.1 35.2 - 51.7 % 09/17/2021 2:54 AM [facility] MCV 83.9 80.7 - 98.3 fL 09/17/2021 2:54 AM [facility] MCH 28.2 26.7 - 34.0 pg 09/17/2021 2:54 AM [facility] MCHC 33.6 30.8 - 35.9 g/dL 09/17/2021 2:54 AM [facility] Platelet Count 413(H) 150 - 400 10? 3 /uL 09/17/2021 2:54 AM [facility] RDW-SD 37.2 36.0 - 50.0 fL 09/17/2021 2:54 AM [facility] RDW-CV 12.2 11.2 - 14.8 % 09/17/2021 2:54 AM [facility] MPV 9.7 9.4 - 12.9 fL 09/17/2021 2:54 AM [facility] nRBC Absolute 0.00 0 10? 3 /uL 09/17/2021 2:54 AM [facility] nRBC Auto 0.0 0 /100 WBC 09/17/2021 2:54 AM [facility] Blood BLOOD SPECIMEN / Unknown Lab Venipuncture / Unknown 09/17/2021 2:28 AM CDT 09/17/2021 2:42 AM CDT Ananda Gilbert DO LAB - HEMATOLOGY ORD ERABLES [facility] [address] [place] [address], [facility] [phone] * (ABNORMAL) BASIC METABOLIC PANEL (CALCIUM TOTAL) (09/17/2021 2:28 AM CDT) BUN 16 7 - 26 mg/dL 09/17/2021 3:24 AM [facility] Creatinine 0.91 0.71 - 1.16 mg/dL 09/17/2021 3:24 AM [facility] Sodium 138 136 - 145 mmol/L 09/17/2021 3:24 AM [facility] Potassium 3.9 3.5 - 4.5 mmol/L 09/17/2021 3:24 AM [facility] Chloride 103 98 - 107 mmol/L 09/17/2021 3:24 AM [facility] CO2 20(L) 22 - 29 mmol/L 09/17/2021 3:24 AM [facility] Glucose 128(H) 70 - 115 mg/dL 09/17/2021 3:24 AM [facility] Calcium 10.1 8.4 - 10.2 mg/dL 09/17/2021 3:24 AM [facility] Anion Gap 19(H) 8 - 18 09/17/2021 3:24 AM [facility] BUN/Creatinine Ratio 18 7 - 23 09/17/2021 3:[address] [facility] Osmolality Calculated 289 270 - 300 mOsm/kg 09/17/2021 3:[address] [facility] eGFR by CKD-EPI >90 >=90 mL/min/1.7 3 m2 09/17/2021 3:[address] [facility] Blood BLOOD SPECIMEN / Unknown Lab Venipuncture / Unknown 09/17/2021 2:28 AM CDT 09/17/2021 2:42 AM CDT Ananda Gilbert DO LAB - CHEMISTRY ORDE RABLES [address] [address], [place] [phone] * (ABNORMAL) GLUCOSE - POINT OF CARE (09/17/2021 12:35 AM CDT) Glucose WB/POC 128(H) 70 - 115 mg/dL 09/17/2021 12:[address] [facility] Specimen Type Cap Fingerstick 2021 12:[address] [facility] Blood BLOOD SPECIMEN / Unknown 09/17/2021 12:35 AM CDT 09/17/2021 12:39 AM CDT Ananda Gilbert DO LAB - POINT OF CARE ORDERABLES [address] [address], [place] [phone] * GLUCOSE - POINT OF CARE (09/16/2021 7:40 PM CDT) Glucose WB/POC 107 70 - 115 mg/dL 09/16/2021 7:[address] [facility] Specimen Type Cap Fingerstick 2021 7:[address] [facility] Blood BLOOD SPECIMEN / Unknown 09/16/2021 7:40 PM CDT 09/16/2021 7:41 PM CDT Ananda Gilbert DO LAB - POINT OF CARE ORDERABLES Performing Organization Address City/[facility]/ZIP Co de Phone Number [address] [address], [place] [phone] * GLUCOSE - POINT OF CARE (09/16/2021 5:59 PM CDT) Glucose WB/POC 100 70 - 115 mg/dL 09/16/2021 7:41 PM CDT [facility] Specimen Type Cap Fingerstick 2021 7:[address] [facility] Blood BLOOD SPECIMEN / Unknown 09/16/2021 5:59 PM CDT 09/16/2021 7:41 PM CDT Ananda Gilbert DO LAB - POINT OF CARE ORDERABLES Performing Organization Address [facility]/ZIP Co de Phone Number [address] [address], [place] [phone] * GLUCOSE - POINT OF CARE (09/16/2021 11:31 AM CDT) Glucose WB/POC 98 70 - 115 mg/dL 09/16/2021 11:[address] [facility] Specimen Type Cap Fingerstick 2021 11:[address] [facility] Blood BLOOD SPECIMEN / Unknown 09/16/2021 11:31 AM CDT 09/16/2021 11:36 AM CDT Ananda Gilbert DO LAB - POINT OF CARE ORDERABLES Performing Organization Address City/[facility]/ZIP Co de Phone Number [address] [address], [place] [phone] * GLUCOSE - POINT OF CARE (09/16/2021 8:57 AM CDT) Glucose WB/POC 84 70 - 115 mg/dL 09/16/2021 9:[address] [facility] Specimen Type Cap Fingerstick 2021 9:[address] [facility] Blood BLOOD SPECIMEN / Unknown 09/16/2021 8:57 AM CDT 09/16/2021 9:02 AM CDT Ananda Orellana Vladimir DO LAB - POINT OF CARE ORDERABLES [address] [address], [place] [phone] * GLUCOSE - POINT OF CARE (09/16/2021 5:26 AM CDT) Glucose WB/POC 79 70 - 115 mg/dL 09/16/2021 5:27 AM CDT [facility] Specimen Type Arterial 09/16/2021 5:[address] [facility] Blood BLOOD SPECIMEN / Unknown 09/16/2021 5:26 AM CDT 09/16/2021 5:27 AM CDT Ananda Orellana Vladimir [facility] LAB - POINT OF CARE ORDERABLES [address] [address], [place] [phone] * PHOSPHORUS BLOOD (09/16/2021 2:38 AM CDT) Phosphorus 3.8 2.8 - 5.1 mg/dL 09/16/2021 3:[address] [facility] Blood BLOOD SPECIMEN / Unknown Lab Venipuncture / Unknown 09/16/2021 2:38 AM CDT 09/16/2021 2:52 AM CDT Ananda Orellana Vladimir [facility] LAB - CHEMISTRY ORDE RABLES [address] [address], [place] [phone] * MAGNESIUM BLOOD (09/16/2021 2:38 AM CDT) Magnesium 2.1 1.6 - 2.6 mg/dL 09/16/2021 3:25 AM [facility] Blood BLOOD SPECIMEN / Unknown Lab Venipuncture / Unknown 09/16/2021 2:38 AM CDT 09/16/2021 2:52 AM CDT Ananda Gilbert DO LAB - CHEMISTRY ORDE ERIC [facility] [address] [place] [address], [facility] [phone] * (ABNORMAL) CBC W/O DIFFERENTIAL (09/16/2021 2:38 AM CDT) WBC 10.6(H) 3.5 - 10.5 10? 3 /uL 09/16/2021 3:02 AM [facility] RBC 4.74 4.30 - 5.70 10? 6 /uL 09/16/2021 3:02 AM [facility] Hemoglobin 13.4 12.0 - 17.6 g/dL 09/16/2021 3:02 AM [facility] Hematocrit 40.3 35.2 - 51.7 % 09/16/2021 3:02 AM [facility] MCV 85.0 80.7 - 98.3 fL 09/16/2021 3:02 AM [facility] MCH 28.3 26.7 - 34.0 pg 09/16/2021 3:02 AM [facility] MCHC 33.3 30.8 - 35.9 g/dL 09/16/2021 3:02 AM [facility] Platelet Count 360 150 - 400 10? 3 /uL 09/16/2021 3:02 AM [facility] RDW-SD 36.3 36.0 - 50.0 fL 09/16/2021 3:02 AM [facility] RDW-CV 11.9 11.2 - 14.8 % 09/16/2021 3:02 AM [facility] MPV 9.7 9.4 - 12.9 fL 09/16/2021 3:02 AM [facility] nRBC Absolute 0.00 0 10? 3 /uL 09/16/2021 3:02 AM [facility] nRBC Auto 0.0 0 /100 WBC 09/16/2021 3:02 AM [facility] Blood BLOOD SPECIMEN / Unknown Lab Venipuncture / Unknown 09/16/2021 2:38 AM CDT 09/16/2021 2:52 AM CDT Ananda Gilbert DO LAB - HEMATOLOGY ORD ERABLES [facility] [address] [place] [address], [facility] [phone] * (ABNORMAL) BASIC METABOLIC PANEL (CALCIUM TOTAL) (09/16/2021 2:38 AM CDT) BUN 7 7 - 26 mg/dL 09/16/2021 3:25 AM [facility] Creatinine 0.77 0.71 - 1.16 mg/dL 09/16/2021 3:25 AM [facility] Sodium 141 136 - 145 mmol/L 09/16/2021 3:25 AM [facility] Potassium 3.8 3.5 - 4.5 mmol/L 09/16/2021 3:25 AM [facility] Chloride 102 98 - 107 mmol/L 09/16/2021 3:25 AM [facility] CO2 20(L) 22 - 29 mmol/L 09/16/2021 3:25 AM [facility] Glucose 77 70 - 115 mg/dL 09/16/2021 3:25 AM [facility] Calcium 9.8 8.4 - 10.2 mg/dL 09/16/2021 3:25 AM [facility] Anion Gap 23(H) 8 - 18 09/16/2021 3:25 AM [facility] BUN/Creatinine Ratio 9 7 - 23 09/16/2021 3:25 AM [facility] Osmolality Calculated 289 270 - 300 mOsm/kg 09/16/2021 3:25 AM [facility] eGFR by CKD-EPI >90 >=90 mL/min/1.7 3 m2 09/16/2021 3:25 AM [facility] Blood BLOOD SPECIMEN / Unknown Lab Venipuncture / Unknown 09/16/2021 2:38 AM CDT 09/16/2021 2:52 AM CDT Ananda Goodrichper DO LAB - CHEMISTRY [facility] [address] [place] [id number], [place] [phone] * (ABNORMAL) HEMOGLOBIN A1C (09/16/2021 2:38 AM CDT) Hemoglobin A1c 6.5(H) <=5.6 % 09/16/2021 11:55 AM CDT [facility] Estimated Average Glucose 140 mg/dL 09/16/2021 11:[address] [facility] Comment: HbA1c Interpretation: Normal : < 5.7% Pre-diabetes: 5.7-6.4% Diabetes: Equal to or greater than 6.5% Test results diagnostic of diabetes should be repeated for confirmation. Treatment target values recommended by ADA and other clinical organizations should be used to evaluate metabolic control in patients. Reference: [place] [employer], Standards of Care in Diabetes [...] Orellana Vladimir LAB - CHEMISTRY [facility] [address] [place] [address], [place] [phone] * GLUCOSE - POINT OF CARE (09/15/2021 11:29 PM CDT) Glucose WB/POC 75 70 - 115 mg/dL 09/15/2021 11:[address] [facility] Specimen Type Arterial 09/15/2021 11:[address] [facility] Blood BLOOD SPECIMEN / Unknown 09/15/2021 11:29 PM CDT 09/15/2021 11:30 PM CDT Ananda Gilbert DO LAB - POINT OF CARE ORDERABLES Performing Organization Address City/State/[facility] Co de Phone Number [facility] [address] [place] [address], [facility] [phone] * CT ABDOMEN PELVIS W CONTRAST (09/15/2021 [...] - 26 mg/dL 09/15/2021 7:32 PM CDT [facility] Creatinine 0.64(L) 0.71 - 1.16 mg/dL 09/15/2021 7:32 PM [facility] Sodium 139 136 - 145 mmol/L 09/15/2021 7:32 PM [facility] Potassium 3.7 3.5 - 4.5 mmol/L 09/15/2021 7:32 PM [facility] Chloride 101 98 - 107 mmol/L 09/15/2021 7:32 PM [facility] CO2 24 22 - 29 mmol/L 09/15/2021 7:32 PM [facility] Glucose 79 70 - 115 mg/dL 09/15/2021 7:32 PM [facility] Calcium 9.7 8.4 - 10.2 mg/dL 09/15/2021 7:32 PM [facility] Protein Total 7.7 6.0 - 8.3 g/dL 09/15/2021 7:32 PM [facility] Albumin 3.7 3.4 - 5.0 g/dL 09/15/2021 7:32 PM [facility] Bilirubin Total 1.2 0.2 - 1.2 mg/dL 09/15/2021 7:32 PM [facility] Alkaline Phosphatase 80 40 - 150 U/L 09/15/2021 7:32 PM [facility] ALT 47 5 - 55 U/L 09/15/2021 7:32 PM [facility] AST 22 5 - 34 U/L 09/15/2021 7:32 PM [facility] Anion Gap 18 8 - 18 09/15/2021 7:32 PM [facility] BUN/Creatinine Ratio 11 7 - 23 09/15/2021 7:32 PM [facility] Osmolality Calculated 285 270 - 300 mOsm/kg 09/15/2021 7:32 PM [facility] Albumin/Globulin Ratio 0.9(L) 1.1 - 2.3 09/15/2021 7:32 PM [facility] eGFR by CKD-EPI >90 >=90 mL/min/1.7 3 m2 09/15/2021 7:32 PM [facility] Blood BLOOD SPECIMEN / Unknown Lab Venipuncture / Unknown 09/15/2021 6:48 PM CDT 09/15/2021 7:07 PM CDT Ananda Gilbert DO LAB - CHEMISTRY ZIE ERIC [facility] [address] [place] [address], [facility] [phone] * (ABNORMAL) CBC W/O DIFFERENTIAL (09/15/2021 6:48 PM CDT) WBC 11.1(H) 3.5 - 10.5 10? 3 /uL 09/15/2021 7:[address] [facility] RBC 4.83 4.30 - 5.70 10? 6 /uL 09/15/2021 7:15 PM [facility] Hemoglobin 13.8 12.0 - 17.6 g/dL 09/15/2021 7:15 PM [facility] Hematocrit 41.0 35.2 - 51.7 % 09/15/2021 7:15 PM [facility] MCV 84.9 80.7 - 98.3 fL 09/15/2021 7:15 PM [facility] MCH 28.6 26.7 - 34.0 pg 09/15/2021 7:15 PM [facility] MCHC 33.7 30.8 - 35.9 g/dL 09/15/2021 7:15 PM [facility] Platelet Count 323 150 - 400 10? 3 /uL 09/15/2021 7:15 PM [facility] RDW-SD 35.8(L) 36.0 - 50.0 fL 09/15/2021 7:15 PM [facility] RDW-CV 11.9 11.2 - 14.8 % 09/15/2021 7:15 PM [facility] MPV 9.8 9.4 - 12.9 fL 09/15/2021 7:15 PM [facility] nRBC Absolute 0.00 0 10? 3 /uL 09/15/2021 7:15 PM [facility] nRBC Auto 0.0 0 /100 WBC 09/15/2021 7:[address] [facility] Blood BLOOD SPECIMEN / Unknown Lab Venipuncture / Unknown 09/15/2021 6:48 PM CDT 09/15/2021 7:07 PM CDT Ananda Gilbert LAB - HEMATOLOGY ORD ERABLES [facility] [address] [place] [address], [facility] [phone] documented in this encounter Visit Diagnoses Diagnosis [...] Reason: Per Administration Instructions - Comment: blood [id number] (Not Administered - Provider: Parisa Soares RN [...] Zackery García RN) HYDROmorphone (Dilaudid) 0.2 mg/ml LAB AIDE (CANCELED) LAB AIDE Dose: 0.4 mg, LAB AIDE Lockout Interval: 15 Minutes, One Hour Limit\Max Limit: 1.6 mg, Clinician Bolus (Load): 0.2 mg, Intravenous, LAB AIDE, Starting on Avani 09/17/21 at 2000, Until Tue09/20/21 at 1645, LAB AIDE Pump Therapy: Normal Risk (LAB AIDE Only) 0804 ($ New Bag/Syringe - Provider: [...] MAR. documented in this encounter Care Teams University Demonstrator Relationship Specialty Start Date End Date Maria Alejandra Benjamin MD [address] [place] [address] PCP - General Family Medicine Geriatric Medicine 09/16/21 09/20/21 documented as of this encounter
--- OUTSIDE RECORDS SUMMARY | 2024-05-13 11:43 | XMS_ITS | Encounter Summary ---
Author Organization [facility] Address [address] [place] [address] Phone Care Team Providers Care Plant Safety Engineer Name Role Phone Charles Vogel MD Primary Care Provider [phone] Reason for Referral * Radiology Services (Routine) - Closed Specialty Diagnoses / Procedures Referred By Horacio espinoza Referred To Contact Radiology Diagnoses Abnormal liver function test Procedures US ABDOMEN COMPLETE Charles Vogel MD [address] [place] [address] Phone: tel: fax: Referral ID Status Reason Start Date Expiration Date Visits Re quested Visits Authorized [id number] Closed 06/06/2020 1 1 ER ETCHER Reason for Visit * Radiology Services (Routine) - Closed Specialty Diagnoses / Procedures Referred By Horacio espinoza Referred To Contact Radiology Diagnoses Abnormal liver function test Procedures US ABDOMEN COMPLETE Charles Vogel MD [address] [place] [address] Phone: tel: fax: Referral ID Status Reason Start Date Expiration Date Visits Re quested Visits Authorized [id number] Closed 06/06/2020 1 1 Encounter Details Date Type Department Care Team (Late st Contact Info) Description 06/18/2020 7:48 AM COPPER ETCHER - 06/18/2020 11:59 PM COPPER ETCHER Hospital Encounter [facility] Ultrasound [address] [place] [address] Charles Vogel MD [address] [place] [address] Discharge Disposition: Discharged to home or Selfcare [...] COVID-19? No / Unsure 06/18/2020 7:35 AM COPPER ETCHER documented as of this encounter Medications at [...] ABDOMEN COMPLETE Routine 06/18/2020 8 :33 AM COPPER ETCHER Abnormal liver function test documented in this encounter Results * US ABDOMEN COMPLETE (06/18/2020 8:33 AM COPPER ETCHER) Anatomical Region Laterality Modality Abdomen N/A Ultrasound 06/18/2020 3:49 PM COPPER ETCHER Impressions 06/18/2020 3:52 PM COPPER ETCHER IMPRESSION: ?? 1. ?? Increased hepatic echogenicity, as seen with steatosis. 2. ??0.7 cm nodular echogenicity adherent to the gallbladder wall, possibly a polyp or adherent sludge. ??Recommend follow-up ultrasound in 6 months. Narrative 06/18/2020 3:52 PM COPPER ETCHER EXAM DESCRIPTION: ?? US ABDOMEN COMPLETE REASON [...] PM T: ??06/18/2020 3:49 PM Report ID: [id number] Reading Location: ??[id number] Procedure Note Larry Carlos MD - 06/18/2020 [...] by Larry Carlos BG: BG Report ID: [id number] Reading Location: [place] [address] IMPRESSION: 1. Increased hepatic echogenicity, as seen with steatosis. 2. 0.7 cm nodular echogenicity adherent to the gallbladder wall, possibly a polyp or adherent sludge. Recommend follow-up ultrasound in 6 months. us Charles Vogel MD [facility] US ORDERABLES Final Res ult documented in this encounter Visit Diagnoses Diagnosis Abnormal liver function test Other abnormal blood chemistry documented in this encounter Care Teams Plant Safety Engineer Relationship Specialty Start Date End Date Charles Vogel MD [address] [place] [address] PCP - General Internal Medicine 02/21/19 documented as of this encounter
--- OUTSIDE RECORDS SUMMARY | 2024-05-13 11:43 | XMS_ITS | Encounter Summary ---
Author Organization [employer] Care Team Providers Care Booth Usher Name Role Phone Charles Vogel MD Primary Care Provider [phone] Encounter Details Date Type Department Care Team [...] COVID-19? No / Unsure 06/18/2020 7:35 AM PHARMACEUTICAL BOTANIST documented as of this encounter Plan of Treatment Not on file documented as of this encounter Visit Diagnoses Not on filedocumented in this encounter Care Teams Booth Usher Relationship Specialty Start Date End Date Charles Vogel MD [address] [place] [address] PCP - General Internal Medicine 02/21/19 documented as of this encounter
--- OUTSIDE RECORDS SUMMARY | 2024-05-13 11:43 | XMS_ITS | Encounter Summary ---
Author Organization [facility] Address [address] [place] [address] Phone Care Team Providers Care Banquet Attendant Name Role Phone Charles Vogel MD Primary Care Provider Reason for Visit * Reason Comments Medication Refill Encounter Details Date Type Department Care Team (Late st Contact Info) Description 05/17/2020 Refill [facility] - Internal Medicine - [place] [address] [place] [address] Charles Vogel MD [address] [place] [address] Medication Refill Social History Tobacco [...] 9:05 AM CST Please review and sign. INTERFACE DEVELOPER documented in this encounter Plan of Treatment Not on file documented as of this encounter Visit Diagnoses Not on filedocumented in this encounter Care Teams Banquet Attendant Relationship Specialty Start Date End Date Charles Vogel MD [address] [place] [address] PCP - General Internal Medicine 02/21/19 documented as of this encounter
--- OUTSIDE RECORDS SUMMARY | 2024-05-13 11:43 | XMS_ITS | Encounter Summary ---
Author Organization [facility] Address [address] [place] [address] Phone Care Team Providers Care Lace Inspector Name Role Phone Charles Vogel MD Primary Care Provider [phone] Reason for Referral * Consult, Test & Initiate Treatment (Less Than 2 Weeks) - Closed Specialty Diagnoses / Procedures Referred By Contact Referred To Contact Gastroenterology Diagnoses Stomach pain Charles Vogel MD [address] [place] [address] Phone: tel: fax: [facility] - Gastroenterology [facility] [address] [place] [address] Phone: tel: fax: Referral ID Status Reason Start Date Expiration Date Visits Re quested Visits Authorized [id number] Closed 01/05/2021 1 1 Scheduling Instructions Chuck [...] Refill [facility] - Internal Medicine [facility] [address] [place] [address] Charles Vogel MD [address] [place] [address] Social History Tobacco Use Types Packs/Day Years [...] documented as of this encounter Care Teams Lace Inspector Relationship Specialty Start Date End Date Charles Vogel MD [address] [place] [address] PCP - General Internal Medicine 02/21/19 documented as of this encounter
--- OUTSIDE RECORDS SUMMARY | 2024-05-13 11:43 | XMS_ITS | Encounter Summary ---
Author Organization [facility] Address [address] [place] [address] Phone Care Team Providers Care Fundraising Specialist Name Role Phone Charles Vogel MD Primary Care Provider Encounter Details Date Type Department Care Team (Late st Contact Info) Description 04/22/2020 Telephone [facility] - Internal Medicine - [place] [address] [place] [address] Charles Vogel MD [address] [place] [address] Social History Tobacco Use Types [...] - 04/22/2020 1:04 PM CST Sent to [facility] T RELATIONS REPRESENTATIVE * Telephone Encounter - Charles Vogel MD - 04/22/2020 11:22 AM GUEST RELATIONS REPRESENTATIVE Needs Lipid, ALT, AST T RELATIONS REPRESENTATIVE * Telephone Encounter - Antonieta Angel RN - 04/22/2020 10:47 AM GUEST RELATIONS REPRESENTATIVE When looking at last phone visit I see that you said that you wanted to recheck lipid panel and theother is not coming up. I know that when dictating sometimes it puts it in differently. T RELATIONS REPRESENTATIVE documented in this encounter Plan of Treatment [...] aftercare documented in this encounter Care Teams Fundraising Specialist Relationship Specialty Start Date End Date Charles Vogel MD [address] [place] [address] PCP - General Internal Medicine 02/21/19 documented as of this encounter
--- OUTSIDE RECORDS SUMMARY | 2024-05-13 11:43 | XMS_ITS | Encounter Summary ---
Author Organization [facility] Address [address] [place] [address] Phone Care Team Providers Care Senior Asp Net Developer Name Role Phone Charles Vogel MD Primary Care Provider [phone] Encounter Details Date Type Department Care Team (Late st Contact Info) Description 02/08/2020 Telephone [facility] - Internal Medicine - [place] [address] [place] [address] Charles Vogel MD [address] [place] [address] Social History Tobacco Use Types [...] ago would like results Call back #: [phone] documented in this encounter Plan of Treatment Not on file documented as of this encounter Visit Diagnoses Not on filedocumented in this encounter Care Teams Senior Asp Net Developer Relationship Specialty Start Date End Date Charles Vogel MD [address] [place] [address] PCP - General Internal Medicine 02/21/19 documented as of this encounter
--- OUTSIDE RECORDS SUMMARY | 2024-05-13 11:43 | XMS_ITS | Encounter Summary ---
Author Organization [facility] Address [address] [place] [address] Phone Care Team Providers Care Hr Administrative Assistant Name Role Phone Charles Vogel MD Primary Care Provider [phone] Reason for Visit * Reason Onset Date Comments Medication Refill 07/21/2020 Encounter Details Date Type Department Care Team (Late st Contact Info) Description 06/19/2020 Telephone [facility] - Internal Medicine - [place] [address] [place] [phone] Charles Vogel MD [address] [facility] [place] [address] Medication Refill Social History Tobacco [...] COVID-19? No / Unsure 06/18/2020 7:35 AM DAIRY PRODUCTS MAKER documented as of this encounter Miscellaneous Notes * Addendum Note - Antonieta Mccallum RN - 07/21/2020 2:09 PM CSTAddended by: ANTONIETA MCCALLUM on: 07/21/2020 02:09 PM Modules accepted: Orders Y PRODUCTS MAKER * Telephone Encounter - Charles Vogel MD - 07/21/2020 1:37 PM DAIRY PRODUCTS MAKER Probably not related to Atorvastatin. He may stop Atorvastatin and we can repeat LFTs in one month and see if it get sbetter. Y PRODUCTS MAKER * Telephone Encounter - Antonieta Mccallum RN - 06/20/2020 10:21 AM DAIRY PRODUCTS MAKER Patient was wondering if the Cholesterol medication could be causing the increase in his liver enzymes? Please advise. Y PRODUCTS MAKER * Telephone Encounter - Antonieta Mccallum RN - 06/19/2020 8:04 AM CST ----- Message from Charles Vogel MD sent at 06/18/2020 5:01 PM DAIRY PRODUCTS MAKER ----- A truss sounds shows fatty liver. He needs to lose weight. Possible small nodule. Needs to repeat ultrasound in 6 months. Hepatitis B&C tests are negative Y PRODUCTS MAKER Y PRODUCTS MAKER documented in this encounter Plan of Treatment Not on file documented as of this encounter Results * HEPATIC FUNCTION PANEL (10/17/2020) Blood us Charles Vogel MD CHEMISTRY ORDERABLES Final Result documented in this encounter Visit Diagnoses Diagnosis Abnormal liver function test- Primary Other abnormal blood chemistry Essential hypertension, benign documented in this encounter Care Teams Hr Administrative Assistant Relationship Specialty Start Date End Date Charles Vogel MD [address] [place] [address] PCP - General Internal Medicine 02/21/19 documented as of this encounter
--- OUTSIDE RECORDS SUMMARY | 2024-05-13 11:43 | XMS_ITS | Encounter Summary ---
Author Organization [facility] Address [address] [place] [address] Phone Care Team Providers Care Casting Wheel Operator Helper Name Role Phone Charles Vogel MD Primary Care Provider [phone] Reason for Referral * Radiology Services (Routine) - Closed Specialty Diagnoses / Procedures Referred By Horacio espinoza Referred To Contact Radiology Diagnoses Gallbladder polyp Procedures US ABDOMEN LIMITED LEVEL 3 THREE ORGAN Charles Vogel MD [address] [place] [address] Phone: tel: fax: Referral ID Status Reason Start Date Expiration Date Visits Re quested Visits Authorized [id number] Closed 12/11/2020 1 1 Reason for Visit * Radiology Services (Routine) - Closed Specialty Diagnoses / Procedures Referred By Horacio espinoza Referred To Contact Radiology Diagnoses Gallbladder polyp Procedures US ABDOMEN LIMITED LEVEL 3 THREE ORGAN Charles Voegl MD [address] [place] [address] Phone: tel: fax: Referral ID Status Reason Start Date Expiration Date Visits Re quested Visits Authorized [id number] Closed 12/11/2020 1 1 Encounter Details Date Type Department Care Team (Late st Contact Info) Description 12/17/2020 10:02 AM CDT - 12/17/2020 11:59 PM CDT Hospital Encounter [facility] Ultrasound [address] [place] [address] Charles Vogel MD [address] [place] [address] Discharge Disposition: Discharged to home or Selfcare [...] PM T: ??12/17/2020 5:03 PM Report ID: [id number] Reading Location: ??[id number] Procedure Note Joseph More MD - 12/17/2020 [...] Joseph More M.D. JA: BRE Report ID: [id number] Reading Location: [id number] IMPRESSION: 0.6 cm gallbladder polyp, unchanged. Continued follow-up in 1 year. us Charles Vogel MD [facility] US ORDERABLES Final Res ult documented in this encounter Visit Diagnoses Diagnosis Gallbladder polyp Cholesterolosis of gallbladder documented in this encounter Additional Health Concerns Assessment Noted Time PHQ-9 Depression Total Score: 0 12/12/19 21 9:00 AM CDT documented as of this encounter Care Teams Casting Wheel Operator Helper Relationship Specialty Start Date End Date Charles Vogel MD [address] [place] [address] PCP - General Internal Medicine 02/21/19 documented as of this encounter
--- OUTSIDE RECORDS SUMMARY | 2024-05-13 11:43 | XMS_ITS | Clinical Summary ---
Author Organization [facility] Address [address] [place] [address] Phone Care Team Providers Care Lodging House Keeper Name Role Phone Charles Vogel MD Primary Care Provider [phone] Allergies No known active allergies Medications lisinopril [...] Lnp-s, Pf, 3 0 Mcg/0.3 Ml Dose ([employer]) 09/20/2020,08/28/2020 DTAP VACCINE, UNSPECIFIED FORMULATION 1994 ,1994 [...] HEPATITIS C ANTIBODY Routine 06/18/2020 8:37 AM CHAIR AND COUCH MAKER Abnormal liver function test from Last 3 Months or Most Recently Relevant to Health Maintenance Results * HEPATITIS C ANTIBODY (06/18/2020 8:37 AM CHAIR AND COUCH MAKER) hepatitis C antibody 0.13 <1 S/CO [facility] ARCH [id number] 06/18/2020 6:45 PM CHAIR AND COUCH MAKER [facility] Comment: Signal/Cutoff ratio ??< 0.79 is Nondetected Signal/Cutoff ratio 0.80-0.99 is Grayzone Signal/Cutoff ratio > 0.99 is Detected Supplemental assays are recommended if signal/cutoff ratio is >/=1.00. ??Signal/cutoff ratio result >/= 5.00 is 97% predictive of positivity for recombinant immunoblot assay (RIBA) and will be reported to the [place] Department of Public Health as required. Blood Venipuncture / Unknown 06/18/2020 8:37 AM CHAIR AND COUCH MAKER 06/18/2020 9:07 AM CHAIR AND COUCH MAKER us Charles Vogel MD CHEMISTRY ORDERABLES Final Result [facility] [address] [place] [address], from Last 3 Months or Most Recently Relevant to Health Maintenance Insurance [facility] Care Teams Lodging House Keeper Relationship Specialty Start Date End Date Charles Vogel MD [address] [place] [address] PCP - General Internal Medicine 02/21/19
--- OUTSIDE RECORDS SUMMARY | 2024-05-13 11:43 | XMS_ITS | Encounter Summary ---
Author Organization [facility] Address [address] [place] [address] Phone Care Team Providers Care Auriculotherapist Name Role Phone Charles Vogel MD Primary Care Provider [phone] Reason for Visit * Reason Onset Date Comments Labs Only 12/24/2020 Encounter Details Date Type Department Care Team (Late st Contact Info) Description 12/24/2020 Telephone [facility] - Internal Medicine - [place] [address] [place] [phone] Charles Vogel MD [address] [place] [address] Labs Only Social History Tobacco [...] 181 <=200 mg/dL 03/11/2021 3:52 PM CDT [facility] TRIGLYCERIDES 119 <150 mg/dL 03/11/2021 3:52 PM CDT [facility] HDL CHOLESTEROL 37.7(L) >40 mg/dL 3:52 PM CDT [facility] LDL 120 5 - 130 mg/dL 03/11/2021 3:52 PM CDT [facility] VLDL 24 5 - 55 mg/dL 03/11/2021 3:52 PM CDT [facility] CHOL/HDL RATIO 4.8(H) 0.0 - 4.4 03/11/2021 3:52 PM CDT [facility] NON-HDL CHOLESTEROL 143.3(H) <130 mg/dL 03/11/2021 3:52 PM CDT [facility] IS THE PATIENT REQUIRED TO BE FASTING? Yes 03/11/2021 3:52 PM CDT [facility] HAS THE PATIENT BEEN FASTING? Yes 03/11/2021 3:52 PM CDT [facility] Blood Venipuncture / Unknown 03/11/2021 10:57 AM CDT 03/11/2021 10:57 AM CDT Charles Vogel MD CHEMISTRY ORDERABLES Final Result [facility] [address] [place] [address] documented in this encounter Visit Diagnoses Diagnosis Mixed hyperlipidemia- Primary Abnormal liver function test Other abnormal blood chemistry documented in this encounter Additional Health Concerns Assessment Noted Time PHQ-9 Depression Total Score: 0 12/12/19 21 9:00 AM CDT documented as of this encounter Care Teams Auriculotherapist Relationship Specialty Start Date End Date Charles Vogel MD [address] [place] [address] PCP - General Internal Medicine 02/21/19 documented as of this encounter
--- OUTSIDE RECORDS SUMMARY | 2024-05-13 11:43 | XMS_ITS | Encounter Summary ---
Author Organization [facility] Address [address] [place] [address] Phone Care Team Providers Care English Professor Name Role Phone Charles Vogel MD Primary Care Provider Reason for Visit * Reason Comments Hypertension Encounter Details Date Type Department Care Team (Late st Contact Info) Description 03/24/2020 2:15 PM MIDDLE OR INTERMEDIATE SCHOOL PRINCIPAL Telemedicine [facility] Medical [facility] - Internal Medicine [place] [address] [place] [address] Charles Vogel MD [address] [place] [address] Essential hypertension, benign (Primary Dx); Mixed hyperlipidemia [...] - 03/24/2020 2:15 PM CST PROGRESS NOTE [facility] MEDICAL [facility] INTERNAL MEDICINE [address] [place] [address] 03/24/2020 Chuck Barlow 1995 Chief Complaint Patient presents with ??? Hypertension Patient telephone visit for follow-up for hypertension. Patient is feeling well. Blood pressure remains stable. No headache or dizziness. No chest pain, palpitation, shortness of breath. In November he had surgery for deviated nasal septum then subsequently had consultation with client resolution specialist. Recommended allergy shots but concerned about taking lisinopril. Patient is advised that we can change lisinopril to different blood pressure medication if client resolution specialist recommended it. ROS Review of Systems [...] By: Charles Vogel MD 03/24/2020 2:20 PM MIDDLE OR INTERMEDIATE SCHOOL PRINCIPAL LE OR INTERMEDIATE SCHOOL PRINCIPAL documented in this encounter Plan of Treatment Not on file documented as of this encounter Visit Diagnoses Diagnosis Essential hypertension, benign- Primary Mixed hyperlipidemia documented in this encounter Care Teams English Professor Relationship Specialty Start Date End Date Charles Vogel MD [address] [place] [address] PCP - General Internal Medicine 02/21/19 documented as of this encounter
--- OUTSIDE RECORDS SUMMARY | 2024-05-13 11:43 | XMS_ITS | Encounter Summary ---
Author Organization [facility] Address [address] [facility] [address] Phone Care Team Providers Care Caustic Pump Operator Name Role Phone Charles Vogel MD Primary Care Provider [phone] Reason for Visit * Reason Comments Medication Refill Encounter Details Date Type Department Care Team (Late st Contact Info) Description 04/29/2021 Refill [facility] - Internal Medicine - [place] [address] [place] [phone] Cahrles Vogel MD [address] [place] [address] Medication Refill Social History Tobacco [...] Status 03/11/2021 143.3 (H) <130 mg/dL Final ARCHITECT documented in this encounter Plan of Treatment Not on file documented as of this encounter Visit Diagnoses Not on filedocumented in this encounter Additional Health Concerns Assessment Noted Time PHQ-9 Depression Total Score: 0 12/12/19 21 9:00 AM CDT documented as of this encounter Care Teams Caustic Pump Operator Relationship Specialty Start Date End Date Charles Vogel MD [address] [place] [address] PCP - General Internal Medicine 02/21/19 documented as of this encounter
--- OUTSIDE RECORDS SUMMARY | 2024-05-13 11:43 | XMS_ITS | Encounter Summary ---
Author Organization [facility] Address [address] [place] [address] Care Team Providers Care Tax Evaluator Name Role Phone Maria Alejandra Benjamin MD Primary Care Provider Bertha Ochoa MD Primary Care Provider Reason for Visit * Auth/Cert Specialty Diagnoses / Procedures Referred By Contac t Referred To Contact Diagnoses Small Bowel Obstruction Referral ID Status Reason Start Date Expiration Date Visits Re quested Visits Authorized [id number] 1 1 Encounter Details Date Type Department Care Team (Latest Contact Info) Description 09/15/2021 4:22 PM CDT - 09/22/2021 9:49 AM CDT Hospital Encounter [facility] ACUTE [address] [place] [address] Ananda Gilbert DO [address] [facility] [address] [place] [id number] General Medicine Discharge Disposition: Home or Self Care [...] Sign Reading Time Taken Comments Blood Pressure 127/89 09/22/2021 7:50 AM CDT Pulse 68 09/22/2021 7:50 AM CDT Temperature 36.5 ??C (97.7 ??F) 09/21/2021 3:54 PM CD T Respiratory Rate 18 09/22/2021 7:50 AM CDT Oxygen Saturation 98% 09/22/2021 7:50 AM CDT Inhaled Oxygen Concentration - - [...] included. Physician Discharge Summary Patient ID: Chuck Barlow [id number] 26 year old male 1995 Admit date: 09/15/2021 Discharge date and time: 09/22/2021 Admitting Physician: Cindi Cesar MD Discharge Physician: Ananda Gilbert DO Admitting Diagnosis: small bowel obstruction Discharge Diagnoses: same Admission Condition: stable Discharged Condition: fair Indication for Admission: Chuck Barlow is a 26 year old male with PMHx of HTN, HLD, T2DM, GERD, gastroschisis, and two small bowel obstructions s/p small bowel resections prior to age 4 who was transferred to [facility] on OSH on 09/15 for evaluation of small bowel obstruction requiring NG decompression for management of symptoms, with OSH SBFT revealing no contrast in colon after 4 hours but some after 8 hours. He was transferred to [facility] for further evaluation and management. [...] the PACU. Post-operatively, patient initially required Dilaudid TOP FLAVOR ATTENDANT for pain control. This was discontinued on [...] PT, OT, Regional and Acute Pain Service, Typewriter Tester Procedures: 09/17/21 - exploratory laparotomy, small bowel [...] Your Medications These medications were sent to [facility] - [address] [facility] [address] [address] [facility] [address] ?? Alcohol Prep 70 % ?? ONETOUCH DELICA PLUS 33G EXTRA FINE LANCET ?? OneTouch Verio Reflect w/Device Kit ?? OneTouch Verio test strip Follow-up Information Maria Alejandra Benjamin MD . Specialty: Family Medicine Geriatric Medicine Why: follow up with pcp in 1-2 weeks Contact information: [address] [place] [address] Discharge Instructions None Signed: Akhil Potter MD General Surgery PGY-3 09/22/2021 3:55 PM documented in this encounter Discharge Instructions * Discharge Instructions* Elvia Hawkins, MARINE STEAM FITTER-AUTOMATION APPLICATION ENGINEER - 09/22/2021 7:27 AM CDT Images from the original note were not included. [facility] GENERAL SURGERY PATIENT DISCHARGE INSTRUCTIONS Date of admission: 09/15/2021 Date of discharge: 09/22/21 The name of your operation is: Exploratory laparotomy, bowel resection with anastomosis, enterolysis The name of your surgeon is: Acute Care Surgery Service Summary of Specific instructions for CHUCK Hinds DAVIS Diet: Regular diet as tolerated, high in [...] prior to your discharge. The number is [phone]. Option 1 for General Surgery. Acute Care Surgery Patients: [facility] Acute Care Surgery Clinic-[address] [place] [id number] During Business Hours Questions or Concerns (Adult Patients) 1. Please call the general surgery office at [phone] Outside Business Hours Questions or Concerns (Adult Patients) 1. Please call [facility] Hospital Firestopper Installer at [phone] and have the General Surgery environmental program manager resident paged. Medications: You have been provided a prescription for: Medication List START taking these medications Alcohol Prep 70 % USE 1 SWAB TO CLEAN SKIN TWICE DAILY BEFORE TESTING cyclobenzaprine 10 MG tablet Commonly known as: Flexeril Take 1 (one) tablet by mouth 3 times daily HYDROcodone-acetaminophen 7.5-325 MG tablet Commonly known as: [place] Take 1 (one) tablet by mouth every [...] known as: Januvia STOP taking these medications atorvastatin 20 MG tablet Commonly known as: Lipitor Where to Get Your Medications These medications were sent to [facility] - [facility] [facility] [address] [address] [place] [id number] Alcohol Prep 70 % cyclobenzaprine 10 MG [...] the number listed above or call the [facility] hospital ([phone]) and ask for the Acute Care Surgery Resident environmental program manager. A prescription for a different narcotic can [...] Care Everywhere. * Bowel Obstruction (Inpatient Care) (Peruvian) documented in this encounter Medications at Time [...] strip 09/16/2021 06/29/2022 Blood Glucose Monitoring Suppl ([facility] VERIO REFLECT) w/Device KIT Use 1 Units [...] for Pain 12 tablet 09/22/2021 03/21/2022 Lancets ([facility] DELICA PLUS 33G EXTRA FINE LANCET) USE [...] Medication to Bedside delivery was completed for Chuckheather Barlow. ??? A total of 5 prescriptions were delivered to the patient for discharge. ??? Medications were given to NURSE (ANGELINA) ??? This delivery included a controlled substance: YES, given to NURSE ANGELINA ??? This delivery included medication that should be stored in the fridge: NO Thank you for allowing the outpatient pharmacy to participate in the care of Chuck Barlow. If you have any questions, please contact the outpatient pharmacy at [phone]. Emiliano Mcdonald CPhT [facility] at [facility] [address] [facility] First Floor [place], [place] [address] Hours of Operation Tuesday - Tuesday: 8:00am to 6:00pm Tuesday: 9:00am to 1:00pm Epic: [facility] *Ensure the patient and clinic's nearby ZIP codes box is unchecked* * Virginia López RN - 09/22/2021 9:49 AM CDT Discharge To Home Discharge Date: 09/22/2021 Transportation at time of Discharge: Patient arranged Comments: Patient discharged home no further case management needs. Virginia López RN Case restaurant district manager: [phone] 09/22/2021 * Nicole Shipman PTA - 09/22/2021 8:20 AM CDT [facility] Physical Medicine and Rehabilitation PhysicalTherapy Progress Note Patient: Chuck Barlow Med Record Number: [id number] Date of : 1995 Age: [age] year old Face Mask: Therapist and Debi REDDY wore a surgical mask and eye protection Pt wore a surgical mask [facility] Discharge Recommendation: Patient should be able [...] will perform home exercise program independently ?? Naval Aircrewman Tactical Helicopter Goal(s): Patient to be independent/baseline with functional [...] family in room and with RN, Angelina nguyen. * Dorothea Hartman OT - 09/21/2021 3:40 PM CDT [facility] Physical Medicine and Rehabilitation Occupational Therapy Progress Note/DC summary Patient: Chuck Barlow Med Record Number: [id number] Date of : 1995 Age: [age] year [...] Independently Patient will transfer to toilet Independently Snf Goal:Patient to be independent/baseline with functional mobility [...] Stone, PT - 09/21/2021 1:11 PM CDT [facility] Physical Medicine and Rehabilitation PhysicalTherapy Progress Note Patient: Chuck Barlow [facility] Record Number: [id number] Date of : 1995 Age: [age] year [...] will perform home exercise program independently ?? Snf Goal(s): Patient to be independent/baseline with functional [...] pre-op epidural for post-op pain management. Subjective: TOP FLAVOR ATTENDANT discontinued overnight last night. Patient reporting 12/23 pain control with scheduled oxycodone, reports that [...] PRN Akhil Potter MD 10 mg at 09/21/21804 ??? dextrose 10 % IV bolus 12.5 g Intravenous PRN Isaiah Barney MD Or ??? dextrose 10 % IV bolus 25 g Intravenous PRN Isaiah Barney MD ??? enoxaparin (Lovenox) injection 40 mg 40 mg Subcutaneous QDAY Akhil Potter MD 40 mg at 09/21/21803 ??? famotidine (Pepcid) injection 20 mg 20 mg Intravenous BID Akhil Potter MD 20 mg at 09/21/21803 ??? glucagon (Glucagen) injection 1 mg 1 mg Intramuscular PRN Isaiah Barney MD ??? glucose (Diabetic Use) (Dex4 Glucose) oral liquid Oral PRN Isaiah Barney MD ??? glucose (Diabetic Use) oral gel Oral PRN Isaiah Braney MD ??? glucose chew tablet 4 tablet 16 g Oral PRN Isaiah Barney MD ??? hydrALAZINE (Apresoline) injection 10 mg 10 mg Intravenous q4h PRN Akhil Potter MD ??? HYDROmorphone (Dilaudid) injection 0.1 mg 0.1 mg Intravenous q2h PRN Isaiah Barney MD Or ??? HYDROmorphone (Dilaudid) injection 0.2 mg 0.2 mg Intravenous q2h PRN Isaiah Barney MD 0.2 mg at 09/17/21 08 ??? insulin lispro (HumaLOG;ADMelog) 100 UNIT/ML pen 0-6 Units 0-6 Units Subcutaneous q4h Isaiah Barney MD 1 Units at 09/17/212013 ??? ketorolac (Toradol) injection 30 mg 30 mg Intravenous q6h PRN Akhil Potter MD 30 mg at 09/21/21803 ??? labetalol (Normodyne; Trandate) injection 10 mg [...] MD 10 mg at 09/17/21 0808 ??? senna-docusate (Senokot-S) tablet 1 tablet 1 tablet Oral QDAY Akhil Potter MD 1 tablet at09/21/21 08 ??? throat lozenge 1 lozenge 1 lozenge Oral q2h PRN Akhil Potter MD ??? traMADol (Ultram) tablet 100 mg 100 mg Oral q8h Angelina Ingram, DO Lab Data: Recent Labs Component Name 09/21/21 0235 09/20/21 0935 09/19/21 0337 09/18/21 0306 09/17/21 1933 WBC 10.1 9.9 7.8 10.7* 15.3* HGB 10.7* 11.3* 12.0 12.6 13.5 HCT 32.3* 34.4* 37.0 38.5 40.5 Recent Labs Component Name 09/21/21 0235 09/20/21 0935 09/19/21 0337 09/18/21 0306 09/17/21 0228 NA 141 141 140 [...] discussed with my attending Dr. Aguilar. Angelina Ingram, Anesthesiology and Critical Care PGY-2 09/21/2021 9:09 [...] days 4 Days Post-Op 09/21/2021 HISTORY: Chuck Barlow is a 26 year old male with PMHx of HTN, HLD, T2DM, GERD, gastroschisis, and multiple small bowel obstructions s/p small bowel resection x2 as a child who was transferred to [facility] from OSH on 09/15 for [...] room air - Adequate UOP (0.54) - TOP FLAVOR ATTENDANT discontinued yesterday and transitioned to oral pain [...] 85.0 85.4 85.5 Recent Labs Component Name 09/21/2123409/20/2135 09/19/21 0337 NA 141 141 140 CL 103 103 105 CO2 27 25 23 BUN 5* 5* 9 CREATININE 0.58* 0.60* 0.73 CALCIUM 9.3 9.3 8.6 MAGNESIUM 1.8 1.8 1.7 PHOS 4.1 3.7 2.6* Recent Labs Component Name 09/15/21 1848 PROT 7.7 ALB 3.7 TBILI 1.2 AST 22 ALT 47 ALKPHOS 80 RECENT IMAGING: No new imaging results. ASSESSMENT: Chuck Barlow is a 26 year old male with PMHx of HTN, HLD, T2DM, GERD, gastroschisis, and multiple small bowel obstructions s/p small bowel resection x2 as a child who was transferred to [facility] from OSH on 09/15 for [...] pre-op epidural for post-op pain management. Subjective: TOP FLAVOR ATTENDANT with adequate pain control over last 24 [...] TID PRN Akhil Potter MD5 mL at 09/16/211118 ??? montelukast (Singulair) tablet 10 mg 10 [...] 3.4 4.5 3.8 Pain Management Meds: dilaudid TOP FLAVOR ATTENDANT 0.4 q15m - attempts/doses given matched well overnight Adjuvants: toradol, lidocaine patches, dilaudid PRN Assessment: Pain Relief/Comfort Goal Met: Yes Anticoagulant Use Checked: Yes Plan: - dicontinue TOP FLAVOR ATTENDANT - schedule oxycodone 10mg q4h with breakthrough dilaudid as needed with plans to de-escalate from scheduled to PRN oxycodone after 24 hours - Continue to encourage bowel regimen and early ambulation as tolerates. - Encourage incentive spirometery The patient was seen and the plan was discussed with my attending Dr. Suárez. Angelina Ingram, DO Anesthesiology and Critical Care PGY-2 09/20/2021 3712 Associated attestation - Nicole Suárez MD - [...] days 3 Days Post-Op 09/20/2021 HISTORY: Chuck Barlow is a 26 year old male with PMHx of HTN, HLD, T2DM, GERD, gastroschisis, and multiple small bowel obstructions s/p small bowel resection x2 as a child who was transferred to [facility] from OSH on 09/15 for [...] - Adequate UOP (0.67) - Continues on TOP FLAVOR ATTENDANT, patient reports increased pain with coughing - [...] Component Name 09/19/21 0337 09/18/21 0306 09/17/21 193 WBC 7.8 10.7* 15.3* HGB 12.0 12.6 [...] IMAGING: No new imaging results. ASSESSMENT: Chuck Barlow is a 26 year old male with PMHx of HTN, HLD, T2DM, GERD, gastroschisis, and multiple small bowel obstructions s/p small bowel resection x2 as a child who was transferred to [facility] from OSH on 09/15 for [...] bowel function. NEURO: #Post-operative pain - Dilaudid TOP FLAVOR ATTENDANT per pain team - Multimodal pain regimen: [...] appears well controlled on current regimen with plate shear operator. Denies n/v/f/c/cp/sob. Tolerating PO (sips clears) and having flatus this afternoon. Afebrile, hemodynamically normal, on RA with end tidal co2 monitoring. Can start clears, miralax/docusate/senna. ADAT. Get off TOP FLAVOR ATTENDANT tomorrow if andres clears and transition to PO pain meds. Recent Labs Component Name 09/20/21 0935 09/19/21 0337 09/18/21 0306 WBC 9.9 7.8 10.7* HGB 11.3* 12.0 12.6 HCT 34.4* 37.0 38.5 PLTCOUNT 323 287 380 Recent Labs Component Name 09/20/21 0935 09/19/21 0337 09/18/21 0306 POTASSIUM 3.6 3.5 4.4 CO2 25 23 22 BUN 5* 9 11 CREATININE 0.60* [...] care of this patient. Cindi Cesar MD sales and production manager Trauma / Critical Care / Acute [...] Outcome: Progressing * Angelina Ingram DO - 09/19/2021 10:05 AM CDT Regional & Acute Pain Service Progress Note Admit Date: 09/15/2021 Hospital Day: 5 The patient is a 26 year old male who is s/p ex lap, lysis of adhesions on 09/17/2021. The patient received a pre-op epidural for post-op pain management. Subjective: Epidural removed yesterday 09/18. TOP FLAVOR ATTENDANT controlling his pain adequately. NGT still in [...] Tod Ingram MD 100 mL/hr at 09/19/21 0600 New Bag at 09/19/21 0600 ??? enoxaparin (Lovenox) injection 40 mg 40 [...] Potter MD ??? HYDROmorphone (Dilaudid) 0.2 mg/ml TOP FLAVOR ATTENDANT Intravenous TOP FLAVOR ATTENDANT Angelina Ingram DO New Bag at ??? [...] 4.5 3.8 - Pain Management Meds: dilaudid TOP FLAVOR ATTENDANT 0.4 q15m - attempts/doses given matched well overnight Adjuvants: toradol, lidocaine patches, dilaudid PRN Assessment: Pain Relief/Comfort Goal Met: Yes Anticoagulant Use Checked: Yes Plan: - Continue TOP FLAVOR ATTENDANT until tolerating PO, then can transition from TOP FLAVOR ATTENDANT to oxycodone PO. - Would recommend starting [...] days 2 Days Post-Op 09/19/2021 HISTORY: Chuck Barlow is a 26 year old male with PMHx of HTN, HLD, T2DM, GERD, gastroschisis, and multiple small bowel obstructions s/p small bowel resection x2 as a child who was transferred to [facility] from OSH on 09/15 for [...] with 1L LR bolus - Continues on TOP FLAVOR ATTENDANT with pain well-controlled today - NG remains [...] IMAGING: No new imaging results. ASSESSMENT: Chuck Barlow is a 26 year old male with PMHx of HTN, HLD, T2DM, GERD, gastroschisis, and multiple small bowel obstructions s/p small bowel resection x2 as a child who was transferred to [facility] from OSH on 09/15 for [...] bowel function. NEURO: #Post-operative pain - Dilaudid TOP FLAVOR ATTENDANT per pain team - Multimodal pain regimen: [...] Component Name 09/19/21 0337 09/18/21 0306 09/17/21 193 WBC 7.8 10.7* 15.3* HGB 12.0 12.6 13.5 HCT 37.0 38.5 40.5 PLTCOUNT 287 380 426* Recent Labs Component Name 09/19/21 03309/18/21 0306 09/17/21 0228 POTASSIUM 3.5 4.4 3.9 [...] care of this patient. Cindi Cesar MD sales and production manager Trauma / Critical Care / Acute [...] Jimenez PT - 09/18/2021 3:16 PM CDT [facility] Physical Medicine and Rehabilitation Physical Therapy Initial Evaluation Note Patient: Chuck Barlow [facility] Record Number: [id number] Date of : 1995 Age: [age] year [...] agreed to proceed with treatment; currently utilizing TOP FLAVOR ATTENDANT ?? OBJECTIVE: General Appearance: 26 yo male supine, NAD Precautions: IV's: Peripheral line, epidural line, NG/Dobbhoff, TOP FLAVOR ATTENDANT, catheter Edema: None noted ?? Vitals: (*Assess [...] Balance: fair fair plus endurance Observation: decreased rain and decreased B step length, distance limited [...] Patient will perform home exercise program independently Snf Goal(s): Patient to be independent/baseline with functional [...] 0 exploratory laparotomy, small bowel resection, enterolysis. -TOP FLAVOR ATTENDANT pump initiated for pain -NPO -NG tube [...] Resources Provided: Patient refused Medication affordability concerns: [place]: Virginia López client business manager Office: [phone] 09/18/2021 * Angelina Ingram DO - 09/18/2021 [...] hours or SQH in 2 hours. Continue TOP FLAVOR ATTENDANT at dose as written. Will re-evaluate for conversion to PO regimen once tolerating diethopefully tomorrow. Angelina Ingram DO 09/18/2021 10:53 AM * Akhil Potter MD - 09/18/2021 9:09 AM CDT Images from the original note were not included. ACUTE CARE SURGERY PROGRESS NOTE ADMIT: 09/15/2021 4:22 PM LOS: 3 days 1 Day Post-Op 09/18/2021 HISTORY: Chuck Barlow is a 26 year old male with PMHx of HTN, HLD, T2DM, GERD, gastroschisis, and multiple small bowel obstructions s/p small bowel resection x2 as a child who was transferred to [facility] from OSH on 09/15 for [...] - Increased pain overnight, now improved following TOP FLAVOR ATTENDANT adjustment per pain team - NG remains [...] RECENT LABS: Recent Labs Component Name 09/18/21 0306 09/17/21 19309/17/21 0228 WBC 10.7* 15.3* 13.8* HGB 12.6 13.5 14.5 HCT 38.5 40.5 43.1 MCV 86.3 85.1 83.9 Recent Labs Component Name 09/18/21 0306 09/17/21 0228 09/16/21 0238 NA 139 138 141 CL 108* 103 102 CO2 22 20* 20* BUN 11 16 7 CREATININE 0.84 0.91 0.77 CALCIUM 9.1 10.1 9.8 MAGNESIUM 2.2 2.5 2.1 PHOS 3.4 4.5 3.8 Recent Labs Component Name 09/15/21 1848 PROT 7.7 ALB 3.7 TBILI 1.2 AST 22 ALT 47 ALKPHOS 80 RECENT IMAGING: XR ABDOMEN 09/17: report pending ASSESSMENT: Chuck Barlow is a 26 year old male with PMHx of HTN, HLD, T2DM, GERD, gastroschisis, and multiple small bowel obstructions s/p small bowel resection x2 as a child who was transferred to [facility] from OSH on 09/15 for [...] bowel function. NEURO: #Post-operative pain - Dilaudid TOP FLAVOR ATTENDANT per pain team - Multimodal pain regimen: [...] RENAL: - Ash in place while on TOP FLAVOR ATTENDANT - UOP adequate 0.48cc/kg/hr - Electrolyte repletion [...] are below: Postoperative abdominal pain improved with TOP FLAVOR ATTENDANT. Epidural was removed this morning by pain [...] Labs Component Name 09/18/21 0306 09/17/21 1933 09/17/218 WBC 10.7* 15.3* 13.8* HGB 12.6 13.5 [...] 18 151/80 94 % 09/17/211954 -- -- 20 -- -- 09/17/21 1557 98.8 ??F (37.1 [...] care of this patient. Cindi Cesar MD sales and production manager Trauma / Critical Care / Acute Care / Burn Surgeon * Michelle Montesinos, OT - 09/18/2021 8:49 AM CDT [facility] Physical Medicine and Rehabilitation Occupational Therapy Initial Evaluation Note Patient: Chuck Barlow [facility] Record Number: [id number] Date of : 1995 Age: [age] year [...] agreed to proceed with treatment; currently utilizing TOP FLAVOR ATTENDANT OBJECTIVE: General Appearance: 26 yo male supine, NAD Precautions: IV's: Peripheral line, epidural line, NG/Dobbhoff, TOP FLAVOR ATTENDANT, catheter Edema: None noted Vitals: (*Assess the [...] Independently Patient will transfer to toilet Independently Naval Aircrewman Tactical Helicopter Goal: Patient to be independent/baseline with functional [...] with family in room and with RN, Maeve aware. * Tod Ingram MD - 09/17/2021 9:19 PM CDT [facility] Post Op Check 09/17/2021 Admit: 09/15/2021 4:22 PM Hospital Day: 3 POD: Day of Surgery NAME: Chuck Barlow Procedure: Exploratory laparotomy, small bowel resection, enterolysis [...] extremities spontaneously, no focal deficits Assessment Chuck Barlow is a 26 year old male s/p exploratory laparotomy, small bowel resection, enterolysis forsmall bowel obstruction. POD#0. Afebrile and tachycardic with uncontrolled pain. Plan: - Multimodal pain regimen will need adjustments - Pain team was called - NPO, mIVF -Tachycardia - possibly secondary to pain- TOP FLAVOR ATTENDANT adjusted per pain recs - LR 1L bolus ordered - NG to remain in place, awaiting return of bowel function - CBC - Strict Is/Os - dressings, dry and intact - continue post op care, This note was written with the aid of Medical student Marley MAGALLANES . Patient care was discussed withchief environmental program manager Tod Ingram MD 09/17/2021 9:19 PM * Celeste Payne RN - 09/17/2021 11:41 AM CDT Problem: Tobacco Use Goal: Inpatient tobacco-use cessation counseling participation Outcome: Completed * Akhil Potter MD - 09/17/2021 7:37 AM CDT Images from the original note were not included. ACUTE CARE SURGERY PROGRESS NOTE ADMIT: 09/15/2021 4:22 PM LOS: 2 days 09/17/2021 HISTORY: Chuck Barlow is a 26 year old male with PMH of HTN, HLD, DM2, GERD, gastroschisis, and two small bowel resections for SBO prior to the age of 4 who presented as a transfer from [facility] for evaluation of small bowel obstruction. Patient originally presented to [facility] on 09/11 with 3 day history of abdominal pain. Patient underwent a small bowel follow through on 09/13 which did not show contrast in the colon in 4 hours, but some contrast in the colon in the 8 hours. Patient had an NGtube placed on 09/14 and he was transferred to [facility] today. Patient states that he [...] affect RECENT LABS: Recent Labs Component Name 09/17/21 0228 09/16/21 0238 09/15/21 1848 WBC 13.8* 10.6* 11.1* HGB 14.5 13.4 13.8 HCT 43.1 40.3 41.0 MCV 83.9 85.0 84.9 Recent Labs Component Name 09/17/21 0228 09/16/21 0238 09/15/21 1848 NA 138 141 139 CL 103 102 101 CO2 20* 20* 24 BUN 16 7 7 CREATININE 0.91 0.77 0.64* CALCIUM 10.1 9.8 9.7 MAGNESIUM 2.5 2.1 - PHOS 4.5 3.8 - Recent Labs Component Name 09/15/21 1848 PROT 7.7 ALB 3.7 TBILI 1.2 AST 22 ALT 47 ALKPHOS 80 No results for input(s): PROTIME, INR, PTT in the last 87754 hours. RECENT IMAGING: FT 09/16/21: Small bowel follow through showing old [...] history of prior abdominal surgeries. ASSESSMENT: Chuck Barlow is a 26 year old male with PMH of HTN, HLD, DM2, GERD, gastroschisis who presented as a transfer from [facility] for evaluation of small bowel obstruction. Leandra originally presented to [facility] on 09/11 with 3 day history of abdominal pain. Patient underwent a small bowel follow through on 09/13 which did not show contrast in the colon in 4 hours, but some contrast in the colon in the 8 hours. Patient had an NG tube placed on 09/14 and he was transferred to [facility] 09/15/21. Patient underwent CT A/P [...] the small bowel. Recent Labs Component Name 09/17/2122709/16/21 0238 09/15/21 1848 WBC 13.8* 10.6* 11.1* HGB 14.5 13.4 13.8 HCT 43.1 40.3 41.0 PLTCOUNT 413* 360 323 Recent Labs Component Name 09/17/2122709/16/21 0238 09/15/21 1848 POTASSIUM 3.9 3.8 3.7 CO2 20* [...] care of this patient. Cindi Cesar MD sales and production manager * Virginia López RN - 09/16/2021 [...] Emergency Contact Information Primary Emergency Contact: Lizeth Barlow Address: [address] [place] [address] Relation: Other Patient or territory service representative requests care coordination reach out [...] true [employer] Resources Provided: Patient refused Conservation Specialist Referral: No If patient requires HHC at discharge, he/she requests: Will continue to follow. For any questions or needs please contact: Guest Associate Name/Phone number: Virginia López RN Case restaurant district manager: [phone] 09/16/2021 * Rene Szymanski, PharmD - 09/16/2021 2:17 PM CDT MEDICATION TO BEDSIDE DELIVERY: COMPLETE Medication to Bedside delivery was completed for Chuck Barlow. ??? A total of 4 prescriptions were delivered to the patient for discharge. ??? Medications were given to NURSE (CELESTE) ??? This delivery included a controlled substance: NO ??? This delivery included medication that should be stored in the fridge: NO Thank you for allowing the outpatient pharmacy to participate in the care of Chuck Barlow. If you have any questions, please contact the outpatient pharmacy at [phone]. Rene Szymanski, Qa Intern [facility] at [address], First Floor [place], [place] [address] Hours of Operation Tuesday - Tuesday: 8:00am to 6:00pm Tuesday: 9:00am to 1:00pm Epic: [facility] *Ensure the patient and clinic's nearby ZIP codes box is unchecked* * Celeste Payne RN - 09/16/2021 11:10 AM CDT Pt had small, formed, hard, bowel movement. * Akhil Potter MD - 09/16/2021 5:47 AM CDT Images from the original note were not included. ACUTE CARE SURGERY PROGRESS NOTE ADMIT: 09/15/2021 4:22 PM LOS: 1 day 09/16/2021 HISTORY: Chuck Barlow is a 26 year old male with PMH of HTN, HLD, DM2, GERD, gastroschisis, and two small bowel resections for SBO prior to the age of 4 who presented as a transfer from [facility] for evaluation of small bowel obstruction. Patient originally presented to [facility] on 09/11 with 3 day history of abdominal pain. Patient underwent a small bowel follow through on 09/13 which did not show contrast in the colon in 4 hours, but some contrast in the colon in the 8 hours. Patient had an NGtube placed on 09/14 and he was transferred to [facility] today. Patient states that he [...] DIET NPO Except: NO EXCEPTIONS Ins/Outs: 09/15 0701 - 09/16 0700 In: - Out: 500 [Urine:500] Physical Exam [...] MCV 85.0 84.9 Recent Labs Component Name 09/16/218 09/15/21 1848 NA 141 139 CL 102 101 CO2 20* 24 BUN 7 7 CREATININE 0.77 0.64* CALCIUM 9.8 9.7 MAGNESIUM 2.1 - PHOS 3.8 - Recent Labs Component Name 09/15/21 1848 PROT 7.7 ALB 3.7 TBILI 1.2 AST 22 ALT 47 ALKPHOS 80 No results for input(s): PROTIME, INR, PTT in the last 97686 hours. RECENT IMAGING: CT Abdomen Pelvis w [...] history of prior abdominal surgeries. ASSESSMENT: Chuck Barlow is a 26 year old male with PMH of HTN, HLD, DM2, GERD, gastroschisis who presented as a transfer from [facility] for evaluation of small bowel obstruction. Leandra originally presented to [facility] on 09/11 with 3 day history of abdominal pain. Patient underwent a small bowel follow through on 09/13 which did not show contrast in the colon in 4 hours, but some contrast in the colon in the 8 hours. Patient had an NG tube placed on 09/14 and he was transferred to [facility] 09/15/21. Patient underwent CT A/P [...] bowel obstruction -Obtain SBFT today -NG to LIWS -Bowel Regimen -IV Zofran [...] care of this patient. Cindi Cesar MD sales and production manager * Celeste Payne RN - 09/15/2021 2:46 PM CDT Report received from BRYANT Dahl at [facility]. Patient transfer set up for 2:30pm to [facility]. documented in this encounter H&P Notes * Akhil Potter MD - 09/15/2021 5:58 PM CDT Images from the original note were not included. Acute Care Surgery Inpatient Consult Note Chuck Barlow (26 year old male) Date of : 1995 Admit Date: 09/15/2021 Date of consult: 09/15/2021 Hospital day: 0 Room: [facility] Reason for consult: Small bowel obstruction Requesting Physician: Ananda Gilbert DO History of Present Illness: Patient is a 26 year old male with PMH of HTN, HLD, DM2, GERD, gastroschisis who presented as a transfer from [facility] for evaluation of small bowel obstruction. Patient originally presented to [facility] on 09/11 with 3 day history of abdominal pain. Patient underwent a small bowel follow through on 09/13 which did not show contrast in the colon in 4 hours, but some contrast in the colon in the 8 hours. Patient had an NG tube placed on 09/14 and he was transferred to [facility] today. Patient has a history [...] WBC, HGB, HCT, PLTCOUNT in the last 65501 hours. BMP No results for input(s): NA, POTASSIUM, CL, CO2, BUN, CREATININE, GLUCOSE, CALCIUM, MAGNESIUM, PHOSin the last 91249 hours. LFTs No results for input(s): PROT, ALB, TBILI, ALT, AST, ALKPHOS in the last 87727 hours. Coag No results for input(s): PT, PTT, INR in the last 89906 hours. Cardiac markers No results for input(s): CKTOTAL, CKMB, TROPONINI in the last 35164 hours. Iron Studies No results for input(s): FERRITIN, TRANSFERRIN, IRON, RETICCTPCT, RETICULOCYTE in the last 65916 hours. Urine: UA No results for input(s): COLORU, CLARITYU, PHUR, PROTEINTO, GLUCOSEU, KETONES, BILIRUBINUR, BLOODU,EGFR, NITRITE, UROBILINOGEN, WBCU, RBCU, URINEBACT, YEASTBUDDING in the last 58096 hours. Invalid input(s): LABSPEC, LUEKOCYTE, MUCOUSU UDS No results for input(s): OPIATESUR, LABAMPH, LABBARB, LABBENZ, COCAINESCRN, METHADONE, LABPHEN, LABCANN in the last 46054 hours. Other Blood Alcohol (BAL): No results for input(s): ETOH in the last 78385 hours. Serum Acetaminophen: No results for input(s): ACETAMINO in the last 66422 hours. Serum Salicylate:No results for input(s): SALICYLATE in the last 31612 hours. Microbiology: Microbiology Results (Displays last 21 days for this encounter ONLY) No results found for the last 504 hours. Radiology Impressions: No results found. Pathology: No recent pathology Assessment: Chuck Barlow is a 26 year old male with PMH of HTN, HLD, DM2, GERD, gastroschisis who presented as a transfer from [facility] for evaluation of small bowel obstruction. Leandra originally presented to [facility] on 09/11 with 3 day history of abdominal pain. Patient underwent a small bowel follow through on 09/13 which did not show contrast in the colon in 4 hours, but some contrast in the colon in th e 8 hours. Patient had an NG tube placed on 09/14 and he was transferred to [facility] today. Patient has ahistory of gastroschisis and reportedny two small bowel resections for small bowel obstruction prior to the age of 4. Patient is currently afebrile, hemodynamically stable, non peritonitic on exam, so no acute surgical intervention is indicated. Will obtain CT A/P with IV contrast and leave NG to LIWS. #SBO -NPO, mIVF -NG to LIWS -Obtain [...] expect > 2 Midnights. Cindi Cesar MD sales and production manager documented in this encounter Consult Notes * Ana Apodaca RN - 09/21/2021 12:00 PM CDT Inpatient Typewriter Tester Note Today's Date: 09/21/21 Chuck R Aud is a 26 year old male currently [...] your patient's care. Ana Apodaca RN, , [facility] Typewriter Tester * Gloria Monsalve - 09/18/2021 8:38 AM CDTAssociated Order(s): IP CONSULT TO TECHNICAL ASST Substance Abuse - Brief Intervention Referral due [...] psychiatric social worker/therapist?: Yes Gloria Monsalve Phone: [phone] 09/18/2021 * Ana Apodaca RN - 09/17/2021 9:58 AM CDT Inpatient Typewriter Tester Note Today's Date: 09/17/21 Chuck Hinds Aud is a 26 year old male currently [...] patient's care. Ana Apodaca RN, , [place] Typewriter Tester * Ana Apodaca RN - 09/16/2021 11:51 AM CDT Inpatient Typewriter Tester Note Today's Date: 09/16/21 Chuck Barlow is a 26 year old male currently [...] device, lancets and test strips ordered through [facility] outpatient pharmacy. Compliance With Medications: [...] patient's care. Ana Apodaca RN, , [place] Typewriter Tester documented in this encounter OR Notes * Brief Op Note - Cindi Cesar MD - 09/17/2021 10:49 AM CDT Brief Op Note Procedure: LAPAROTOMY EXPLORATORY, SMALL BOWEL RESECTION, ENTROLYSIS Patient Name: Chuck Barlow Date of Service: 09/17/2021 Pre-Op Diagnosis: Small bowel obstruction [K56.609] Post-Op Diagnosis: same Surgeon(s) and Role: * Cindi Cesar MD - Primary * Maria A Serna MD - Resident - Assisting Scrub Tech(s): Marley MS4 Anesthesia Type: general ETT Complications: none Findings: strictured area of distal / mid ileum adherent to the anterior abdominal wall, site of obstruction. Resected, primary anastomosis EBL: blood loss of 10 ml Urine Output : see anesthesia record IV Fluid Intake: see anesthesia record Drains: Enteral - Nasal/Oral Nostril/Nare (Active) Output Amount (mL) 1200 ML 09/16/21 180 Output Description Brown;Green 09/16/211999 Tube Status To low intermittent suction 09/17/21 1220 Surrounding Skin Dry;Intact 09/17/21 1220 Site Assessment WDL 09/17/21 1220 Tube Repositioned No 09/16/211999 Specimen(s): ID Type Source Tests Collected by Time Destination A : ileum Biopsy, Excision Soft Tissue, Other PATHOLOGY TISSUE Cindi Cesar MD 09/17/2021 1123 Implant(s): * No implants in log * Cindi Cesar MD sales and production manager Trauma / Critical Care / Acute Care / Burn Surgeon * Operative - Maria A Serna MD - 09/17/2021 10:49 AM CDT GENERAL SURGERY OPERATIVE REPORT NAME: Chuck Barlow : 1995 AGE: [age] year old PROC DATE: 09/17/2021 ATTENDING SURGEON: Cindi Cesra MD RESIDENT SURGEON: Maria A Serna MD PREOPERATIVE DIAGNOSIS: Small bowel obstruction POSTOPERATIVE DIAGNOSIS: Small bowel obstruction PROCEDURES: Exploratory laparotomy, small bowel resection, enterolysis ANESTHESIA: General INDICATIONS: Chuck Barlow is a 26 year old [...] 3 AM CDT Small bowel obstruction (HCC) ME EXPLORATORY OF ABDOMEN 09/17/2021 10:49 AM CDT [...] - 115 mg/dL 09/22/2021 7:57 AM CDT [facility] Specimen Type Cap Fingerstick 2021 7:57 AM CDT [facility] Blood BLOOD SPECIMEN / Unknown 09/22/2021 7:52 AM CDT 09/22/2021 7:57 AM CDT Ananda Reyna Gilbert DO LAB - POINT OF CARE ORDERABLES Performing Organization Address City/[facility]/ZIP Co de Phone Number [address] [address], [facility] [phone] * GLUCOSE - POINT OF CARE (09/22/2021 4:23 AM CDT) Glucose WB/POC 114 70 - 115 mg/dL 09/22/2021 4:27 AM CDT [facility] Specimen Type Cap Fingerstick 2021 4:27 AM CDT [facility] Blood BLOOD SPECIMEN / Unknown 09/22/2021 4:23 AM CDT 09/22/2021 4:27 AM CDT Ananda Orellana Vladimir [facility] - POINT OF CARE ORDERABLES [address] [address], [place] [phone] * PHOSPHORUS BLOOD (09/22/2021 2:52 AM CDT) Phosphorus 4.5 2.8 - 5.1 mg/dL 09/22/2021 3:58 AM CDT [facility] Blood BLOOD SPECIMEN / Unknown Lab Venipuncture / Unknown 09/22/2021 2:52 AM CDT 09/22/2021 3:19 AM CDT Ananda Gilbert LAB - CHEMISTRY [place] Performing Organization Address [facility]/ZIP Co de Phone Number [address] [address], [facility] [phone] * MAGNESIUM BLOOD (09/22/2021 2:52 AM CDT) Magnesium 1.9 1.6 - 2.6 mg/dL 09/22/2021 3:58 AM T [facility] Blood BLOOD SPECIMEN / Unknown Lab Venipuncture / Unknown 09/22/2021 2:52 AM CDT 09/22/2021 3:19 AM CDT Ananda Orellana Vladimir [facility] - CHEMISTRY ZIPatricia ERIC Performing Organization Address [facility]/ZIP Co de Phone Number [address] [address], [facility] [phone] * (ABNORMAL) CBC W/O DIFFERENTIAL (09/22/2021 2:52 AM CDT) WBC 9.5 3.5 - 10.5 10? 3 /uL 09/22/2021 3:30 AM [facility] RBC 4.29(L) 4.30 - 5.70 10? 6 /uL 09/22/2021 3:30 AM [facility] Hemoglobin 12.0 12.0 - 17.6 g/dL 09/22/2021 3:30 AM [facility] Hematocrit 36.4 35.2 - 51.7 % 09/22/2021 3:30 AM [facility] MCV 84.8 80.7 - 98.3 fL 09/22/2021 3:30 AM [facility] MCH 28.0 26.7 - 34.0 pg 09/22/2021 3:30 AM [facility] MCHC 33.0 30.8 - 35.9 g/dL 09/22/2021 3:30 AM [facility] Platelet Count 291 150 - 400 10? 3 /uL 09/22/2021 3:30 AM [facility] RDW-SD 37.0 36.0 - 50.0 fL 09/22/2021 3:30 AM [facility] RDW-CV 12.2 11.2 - 14.8 % 09/22/2021 3:30 AM [facility] MPV 10.8 9.4 - 12.9 fL 09/22/2021 3:30 AM [facility] nRBC Absolute 0.00 0 10? 3 /uL 09/22/2021 3:30 AM [facility] nRBC Auto 0.0 0 /100 WBC 09/22/2021 3:30 AM [facility] Blood BLOOD SPECIMEN / Unknown Lab Venipuncture / Unknown 09/22/2021 2:52 AM CDT 09/22/2021 3:18 AM CDT Ananda Gilbert DO LAB - HEMATOLOGY ORD ERABLES [address] [address], [facility] [phone] * (ABNORMAL) BASIC METABOLIC PANEL (CALCIUM TOTAL) (09/22/2021 2:52 AM CDT) BUN 8 7 - 26 mg/dL 09/22/2021 3:58 AM [facility] Creatinine 0.80 0.71 - 1.16 mg/dL 09/22/2021 3:58 AM [facility] Sodium 141 136 - 145 mmol/L 09/22/2021 3:58 AM [facility] Potassium 4.1 3.5 - 4.5 mmol/L 09/22/2021 3:58 AM [facility] Comment:Hemolysis detected i n this specimen. Hemolysis may cause false elevations in potassium leading to pseudohyperkalemia or masked hypokalemia. Recommend repeat testing if clinically indicated. Chloride 105 98 - 107 mmol/L 09/22/2021 3:58 AM [facility] CO2 23 22 - 29 mmol/L 09/22/2021 3:58 AM [facility] Glucose 116(H) 70 - 115 mg/dL 09/22/2021 3:58 AM [facility] Calcium 9.6 8.4 - 10.2 mg/dL 09/22/2021 3:58 AM [facility] Anion Gap 17 8 - 18 09/22/2021 3:58 AM [facility] BUN/Creatinine Ratio 10 7 - 23 09/13 3:58 AM [facility] Osmolality Calculated 291 270 - 300 mOsm/kg 09/22/2021 3:58 AM [facility] eGFR by CKD-EPI >90 >=90 mL/min/1. 73 m2 09/22/2021 3:58 AM [facility] Blood BLOOD SPECIMEN / Unknown Lab Venipuncture / Unknown 09/22/2021 2:52 AM CDT 09/22/2021 3:19 AM CDT Ananda Gilbert DO LAB - CHEMISTRY ORDE RABLES [address] [address], [facility] [phone] * GLUCOSE - POINT OF CARE (09/22/2021 12:10 AM CDT) [facility] Glucose WB/POC 99 70 - 115 mg/dL 09/22/2021 12:30 AM [facility] Specimen Type Cap Fingerstick 2021 12:30 AM [facility] Blood BLOOD SPECIMEN / Unknown 09/22/2021 12:10 AM CDT 09/22/2021 12:30 AM CDT Ananda Gilbert DO LAB - POINT OF CARE ORDERABLES [address] [address], [place] [phone] * (ABNORMAL) GLUCOSE - POINT OF CARE (09/21/2021 8:38 PM CDT) Glucose WB/POC 133(H) 70 - 115 mg/dL 09/21/2021 8:53 PM CDT [facility] Specimen Type Cap Fingerstick 2021 8:53 PM CDT [facility] Blood BLOOD SPECIMEN / Unknown 09/21/2021 8:38 PM CDT 09/21/2021 8:53 PM CDT Ananda Orellana Vladimir DO LAB - POINT OF CARE ORDERABLES [facility] [address] [place] [address], [place] [phone] * GLUCOSE - POINT OF CARE (09/21/2021 5:10 PM CDT) Glucose WB/POC 107 70 - 115 mg/dL 09/21/2021 5:17 PM CDT [facility] Specimen Type Cap Fingerstick 2021 5:17 PM CDT [facility] Blood BLOOD SPECIMEN / Unknown 09/21/2021 5:10 PM CDT 09/21/2021 5:17 PM CDT Ananda Orellana Vladimir DO LAB - POINT OF CARE ORDERABLES Performing Organization Address City/[facility]/ZIP Co de Phone Number [facility] [address] [place] [address], [place] [phone] * GLUCOSE - POINT OF CARE (09/21/2021 11:56 AM CDT) Glucose WB/POC 95 70 - 115 mg/dL 09/21/2021 12:01 PM CDT [facility] Specimen Type Cap Fingerstick 2021 12:01 PM CDT [facility] Blood BLOOD SPECIMEN / Unknown 09/21/2021 11:56 AM CDT 09/21/2021 12:01 PM CDT Ananda Orellana Vladimir DO LAB - POINT OF CARE ORDERABLES [facility] [address] [place] [address], [place] [phone] * GLUCOSE - POINT OF CARE (09/21/2021 7:27 AM CDT) Glucose WB/POC 113 70 - 115 mg/dL 09/21/2021 7:32 AM CDT [facility] Specimen Type Cap Fingerstick 2021 7:32 AM CDT [facility] Blood BLOOD SPECIMEN / Unknown 09/21/2021 7:27 AM CDT 09/21/2021 7:31 AM CDT Ananda Goodrichper DO LAB - POINT OF CARE ORDERABLES Performing Organization Address City/[facility]/ZIP Co de Phone Number [address] [address], [place] [phone] * GLUCOSE - POINT OF CARE (09/21/2021 4:29 AM CDT) Glucose WB/POC 99 70 - 115 mg/dL 09/21/2021 4:34 AM CDT [facility] Specimen Type Cap Fingerstick 2021 4:34 AM CDT [facility] Blood BLOOD SPECIMEN / Unknown 09/21/2021 4:29 AM CDT 09/21/2021 4:34 AM CDT Ananda Orellana Vladimir [facility] - POINT OF CARE ORDERABLES [address] [address], [place] [phone] * PHOSPHORUS BLOOD (09/21/2021 2:35 AM CDT) Phosphorus 4.1 2.8 - 5.1 mg/dL 09/21/2021 3:11 AM CDT [facility] Blood BLOOD SPECIMEN / Unknown Venipuncture / Unknown 09/21/2021 2:35 AM CDT 09/21/2021 2:45 AM CDT Ananda Gilbert DO LAB - CHEMISTRY ORDPatricia REYES [address] [address], [place] [phone] * MAGNESIUM BLOOD (09/21/2021 2:35 AM CDT) Magnesium 1.8 1.6 - 2.6 mg/dL 09/21/2021 3:11 AM CDT [facility] Blood BLOOD SPECIMEN / Unknown Venipuncture / Unknown 09/21/2021 2:35 AM CDT 09/21/2021 2:45 AM CDT Ananda Orellana Vladimir [facility] - CHEMISTRY ORDPatricia REYES Performing Organization Address City/[facility]/ZIP Co de Phone Number [address] [address], [place] [phone] * (ABNORMAL) CBC W/O DIFFERENTIAL (09/21/2021 2:35 AM CDT) WBC 10.1 3.5 - 10.5 10? 3 /uL 09/21/2021 2:52 AM [facility] RBC 3.80(L) 4.30 - 5.70 10? 6 /uL 09/21/2021 2:52 AM [facility] Hemoglobin 10.7(L) 12.0 - 17.6 g/dL 09/21/2021 2:52 AM [facility] Hematocrit 32.3(L) 35.2 - 51.7 % 09/21/2021 2:52 AM [facility] MCV 85.0 80.7 - 98.3 fL 09/21/2021 2:52 AM [facility] MCH 28.2 26.7 - 34.0 pg 09/21/2021 2:52 AM [facility] MCHC 33.1 30.8 - 35.9 g/dL 09/21/2021 2:52 AM [facility] Platelet Count 316 150 - 400 10? 3 /uL 09/21/2021 2:52 AM [facility] RDW-SD 37.1 36.0 - 50.0 fL 09/21/2021 2:52 AM [facility] RDW-CV 11.9 11.2 - 14.8 % 09/21/2021 2:52 AM [facility] MPV 10.0 9.4 - 12.9 fL 09/21/2021 2:52 AM [facility] nRBC Absolute 0.00 0 10? 3 /uL 09/21/2021 2:52 AM [facility] nRBC Auto 0.0 0 /100 WBC 09/21/2021 2:52 AM [facility] Blood BLOOD SPECIMEN / Unknown Venipuncture / Unknown 09/21/2021 2:35 AM CDT 09/21/2021 2:45 AM CDT Ananda Gilbert DO LAB - HEMATOLOGY ORD ERABLES Performing Organization Address [facility] Co de Phone Number [address] [address] [phone] * (ABNORMAL) BASIC METABOLIC PANEL (CALCIUM TOTAL) (09/21/2021 2:35 AM CDT) BUN 5(L) 7 - 26 mg/dL 09/21/2021 3:11 AM [facility] Creatinine 0.58(L) 0.71 - 1.16 mg/dL 09/21/2021 3:11 AM [facility] Sodium 141 136 - 145 mmol/L 09/21/2021 3:11 AM [facility] Potassium 3.4(L) 3.5 - 4.5 mmol/L 09/21/2021 3:11 AM [facility] Chloride 103 98 - 107 mmol/L 09/21/2021 3:11 AM [facility] CO2 27 22 - 29 mmol/L 09/21/2021 3:11 AM [facility] Glucose 107 70 - 115 mg/dL 09/21/2021 3:11 AM [facility] Calcium 9.3 8.4 - 10.2 mg/dL 09/21/2021 3:11 AM CDT [facility] Anion Gap 14 8 - 18 09/21/2021 3:11 AM T [facility] BUN/Creatinine Ratio 9 7 - 23 09/21/2021 3:11 AM T [facility] Osmolality Calculated 290 270 - 300 mOsm/kg 09/21/2021 3:11 AM T [facility] eGFR by CKD-EPI >90 >=90 mL/min/1.7 3 m2 09/21/2021 3:11 AM T [facility] Blood BLOOD SPECIMEN / Unknown Venipuncture / Unknown 09/21/2021 2:35 AM CDT 09/21/2021 2:45 AM CDT Ananda Gilbert DO LAB - CHEMISTRY ORDE RABLES [address] [address], [place] [phone] * (ABNORMAL) GLUCOSE - POINT OF CARE (09/21/2021 1:04 AM CDT) Glucose WB/POC 124(H) 70 - 115 mg/dL 09/21/2021 1:09 AM CDT [facility] Specimen Type Cap Fingerstick 2021 1:09 AM T [facility] Blood BLOOD SPECIMEN / Unknown 09/21/2021 1:04 AM CDT 09/21/2021 1:08 AM CDT Ananda Gilbert DO LAB - POINT OF CARE ORDERABLES [facility] [address] [place] [address], [place] [phone] * (ABNORMAL) GLUCOSE - POINT OF CARE (09/20/2021 8:03 PM CDT) Glucose WB/POC 141(H) 70 - 115 mg/dL 09/20/2021 8:42 PM CDT [facility] Specimen Type Cap Fingerstick 2021 8:42 PM CDT [facility] Blood BLOOD SPECIMEN / Unknown 09/20/2021 8:03 PM CDT 09/20/2021 8:42 PM CDT Ananda Gilbert DO LAB - POINT OF CARE ORDERABLES [facility] [address] [place] [address], [place] [phone] * (ABNORMAL) GLUCOSE - POINT OF CARE (09/20/2021 4:47 PM CDT) Glucose WB/POC 121(H) 70 - 115 mg/dL 09/20/2021 4:52 PM CDT [facility] Specimen Type Cap Fingerstick 2021 4:52 PM CDT [facility] Blood BLOOD SPECIMEN / Unknown 09/20/2021 4:47 PM CDT 09/20/2021 4:52 PM CDT Ananda Goodrichper LAB - POINT OF CARE ORDERABLES Performing Organization Address City/[facility]/ZIP Co de Phone Number [address] [address], [place] [phone] * (ABNORMAL) GLUCOSE - POINT OF CARE (09/20/2021 12:09 PM CDT) Glucose WB/POC 148(H) 70 - 115 mg/dL 09/20/2021 12:17 PM CDT [facility] Specimen Type Cap Fingerstick 2021 12:17 PM CDT [facility] Blood BLOOD SPECIMEN / Unknown 09/20/2021 12:09 PM CDT 09/20/2021 12:17 PM CDT Ananda Gilbert DO LAB - POINT OF CARE ORDERABLES [address] [address], [place] [phone] * PHOSPHORUS BLOOD (09/20/2021 9:35 AM CDT) Pathologist [facility] Phosphorus 3.7 2.8 - 5.1 mg/dL 09/20/2021 10:10 AM T [facility] Blood BLOOD SPECIMEN / Unknown Lab Venipuncture / Unknown 09/20/2021 9:35 AM CDT 09/20/2021 9:40 AM CDT Ananda Orellana Vladimir LAB - CHEMISTRY ORDPatricia TEJADAMATHIEU [address] [address], [facility] [phone] * MAGNESIUM BLOOD (09/20/2021 9:35 AM CDT) [facility] Magnesium 1.8 1.6 - 2.6 mg/dL 09/20/2021 10:10 AM [facility] Blood BLOOD SPECIMEN / Unknown Lab Venipuncture / Unknown 09/20/2021 9:35 AM CDT 09/20/2021 9:40 AM CDT Ananda A Vladimir [facility] - CHEMISTRY ZIPatricia ERIC Performing Organization Address City/[facility]/ZIP Co de Phone Number [address] [address], [facility] [phone] * (ABNORMAL) CBC W/O DIFFERENTIAL (09/20/2021 9:35 AM CDT) [facility] WBC 9.9 3.5 - 10.5 10? 3 /uL 09/20/2021 9:44 AM [facility] RBC 4.03(L) 4.30 - 5.70 10? 6 /uL 09/20/2021 9:44 AM [facility] Hemoglobin 11.3(L) 12.0 - 17.6 g/dL 09/20/2021 9:44 AM [facility] Hematocrit 34.4(L) 35.2 - 51.7 % 09/20/2021 9:44 AM [facility] MCV 85.4 80.7 - 98.3 fL 09/20/2021 9:44 AM [facility] MCH 28.0 26.7 - 34.0 pg 09/20/2021 9:44 AM [facility] MCHC 32.8 30.8 - 35.9 g/dL 09/20/2021 9:44 AM [facility] Platelet Count 323 150 - 400 10? 3 /uL 09/20/2021 9:44 AM [facility] RDW-SD 37.4 36.0 - 50.0 fL 09/20/2021 9:44 AM [facility] RDW-CV 12.0 11.2 - 14.8 % 09/20/2021 9:44 AM [facility] MPV 9.7 9.4 - 12.9 fL 09/20/2021 9:44 AM [facility] nRBC Absolute 0.00 0 10? 3 /uL 09/20/2021 9:44 AM [facility] nRBC Auto 0.0 0 /100 WBC 09/20/2021 9:44 AM [facility] Blood BLOOD SPECIMEN / Unknown Lab Venipuncture / Unknown 09/20/2021 9:35 AM CDT 09/20/2021 9:40 AM CDT Ananda Gilbert DO LAB - HEMATOLOGY ORD ERABLES Performing Organization Address [facility]/State/ZIP Co de Phone Number [facility] [address] [place] [phone], [facility] [phone] * (ABNORMAL) BASIC METABOLIC PANEL (CALCIUM TOTAL) (09/20/2021 9:35 AM CDT) BUN 5(L) 7 - 26 mg/dL 09/20/2021 10:10 AM [facility] Creatinine 0.60(L) 0.71 - 1.16 mg/dL 09/20/2021 10:10 AM [facility] Sodium 141 136 - 145 mmol/L 09/20/2021 10:10 AM [facility] Potassium 3.6 3.5 - 4.5 mmol/L 09/20/2021 10:10 AM [facility] Chloride 103 98 - 107 mmol/L 09/20/2021 10:10 AM [facility] [facility] CO2 25 22 - 29 mmol/L 09/20/2021 10:10 AM [facility] Glucose 126(H) 70 - 115 mg/dL 09/20/2021 10:10 AM [facility] Calcium 9.3 8.4 - 10.2 mg/dL 09/20/2021 10:10 AM [facility] Anion Gap 17 8 - 18 09/20/2021 10:10 AM [facility] BUN/Creatinine Ratio 8 7 - 23 09/20/2021 10:10 AM [facility] Osmolality Calculated 291 270 - 300 mOsm/kg 09/20/2021 10:10 AM [facility] eGFR by CKD-EPI >90 >=90 mL/min/1.7 3 m2 09/20/2021 10:10 AM [facility] Blood BLOOD SPECIMEN / Unknown Lab Venipuncture / Unknown 09/20/2021 9:35 AM CDT 09/20/2021 9:40 AM CDT Ananda Gilbert DO LAB - CHEMISTRY ORDE RABMATHIEU [address] [address], [place] [phone] * (ABNORMAL) GLUCOSE - POINT OF CARE (09/20/2021 8:48 AM CDT) [facility] Signature Glucose WB/POC 124(H) 70 - 115 mg/dL 09/20/2021 8:57 AM [facility] Specimen Type Cap Fingerstick 2021 8:57 AM [facility] Blood BLOOD SPECIMEN / Unknown 09/20/2021 8:48 AM CDT 09/20/2021 8:56 AM CDT Ananda Gilbert DO LAB - POINT OF CARE ORDERABLES [address] [address], [place] [phone] * (ABNORMAL) GLUCOSE - POINT OF CARE (09/20/2021 4:44 AM CDT) Glucose WB/POC 127(H) 70 - 115 mg/dL 09/20/2021 4:54 AM CDT [facility] Specimen Type Cap Fingerstick 2021 4:54 AM CDT [facility] Blood BLOOD SPECIMEN / Unknown 09/20/2021 4:44 AM CDT 09/20/2021 4:53 AM CDT Ananda Gilbert DO LAB - POINT OF CARE ORDERABLES [address] [address], [place] [phone] * (ABNORMAL) GLUCOSE - POINT OF CARE (09/20/2021 12:38 AM CDT) Glucose WB/POC 136(H) 70 - 115 mg/dL 09/20/2021 12:45 AM CDT [facility] Specimen Type Cap Fingerstick 2021 12:45 AM CDT [facility] Blood BLOOD SPECIMEN / Unknown 09/20/2021 12:38 AM CDT 09/20/2021 12:45 AM CDT Ananda Gilbert DO LAB - POINT OF CARE ORDERABLES [address] [address], [place] [phone] * (ABNORMAL) GLUCOSE - POINT OF CARE (09/19/2021 8:04 PM CDT) Glucose WB/POC 125(H) 70 - 115 mg/dL 09/19/2021 8:08 PM CDT [facility] Specimen Type Cap Fingerstick 2021 8:08 PM CDT [facility] Blood BLOOD SPECIMEN / Unknown 09/19/2021 8:04 PM CDT 09/19/2021 8:08 PM CDT Ananda Gilbert DO LAB - POINT OF CARE ORDERABLES [address] [address], [place] [phone] * (ABNORMAL) GLUCOSE - POINT OF CARE (09/19/2021 4:24 PM CDT) Glucose WB/POC 139(H) 70 - 115 mg/dL 09/19/2021 4:25 PM CDT [facility] Specimen Type Arterial 09/19/2021 4:25 PM CDT [facility] Blood BLOOD SPECIMEN / Unknown 09/19/2021 4:24 PM CDT 09/19/2021 4:25 PM CDT Ananda Gilbert LAB - POINT OF CARE ORDERABLES [address] [address], [place] [phone] * (ABNORMAL) GLUCOSE - POINT OF CARE (09/19/2021 11:33 AM CDT) Glucose WB/POC 127(H) 70 - 115 mg/dL 09/19/2021 11:34 AM CDT [facility] Specimen Type Arterial 09/19/2021 11:34 AM CDT [facility] Blood BLOOD SPECIMEN / Unknown 09/19/2021 11:33 AM CDT 09/19/2021 11:34 AM CDT Ananda Gilbert DO LAB - POINT OF CARE ORDERABLES [address] [address], [place] [phone] * (ABNORMAL) GLUCOSE - POINT OF CARE (09/19/2021 8:08 AM CDT) Glucose WB/POC 121(H) 70 - 115 mg/dL 09/19/2021 8:18 AM CDT [facility] Specimen Type Arterial 09/19/2021 8:18 AM CDT [facility] Blood BLOOD SPECIMEN / Unknown 09/19/2021 8:08 AM CDT 09/19/2021 8:18 AM CDT Ananda A Vladimir [facility] LAB - POINT OF CARE ORDERABLES Performing Organization Address City/[facility]/ZIP Co de Phone Number [address] [address], [place] [phone] * GLUCOSE - POINT OF CARE (09/19/2021 4:50 AM CDT) Glucose WB/POC 104 70 - 115 mg/dL 09/19/2021 4:50 AM CDT [facility] Specimen Type Cap Fingerstick 2021 4:50 AM CDT [facility] Blood BLOOD SPECIMEN / Unknown 09/19/2021 4:50 AM CDT 09/19/2021 4:50 AM CDT Annada Orellana Vladimir [facility] - POINT OF CARE ORDERABLES Performing Organization Address City/[facility]/ZIP Co de Phone Number [address] [address], [place] [phone] * (ABNORMAL) PHOSPHORUS BLOOD (09/19/2021 3:37 AM CDT) Phosphorus 2.6(L) 2.8 - 5.1 mg/dL 09/19/2021 4:19 AM CDT [facility] Blood BLOOD SPECIMEN / Unknown Lab Venipuncture / Unknown 09/19/2021 3:37 AM CDT 09/19/2021 3:45 AM CDT Ananda Reyna Vladimir [facility] - CHEMISTRY ORDE RABLES [address] [address], [place] [phone] * MAGNESIUM BLOOD (09/19/2021 3:37 AM CDT) Magnesium 1.7 1.6 - 2.6 mg/dL 09/19/2021 4:19 AM [facility] Blood BLOOD SPECIMEN / Unknown Lab Venipuncture / Unknown 09/19/2021 3:37 AM CDT 09/19/2021 3:45 AM CDT Ananda Gilbert DO LAB - CHEMISTRY [place] Performing Organization Address [facility] Co de Phone Number [address] [address] [phone] * CBC W/O DIFFERENTIAL (09/19/2021 3:37 AM CDT) WBC 7.8 3.5 - 10.5 10? 3 /uL 09/19/2021 4:05 AM [facility] RBC 4.33 4.30 - 5.70 10? 6 /uL 09/19/2021 4:05 AM [facility] Hemoglobin 12.0 12.0 - 17.6 g/dL 09/19/2021 4:05 AM [facility] Hematocrit 37.0 35.2 - 51.7 % 09/19/2021 4:05 AM [facility] MCV 85.5 80.7 - 98.3 fL 09/19/2021 4:05 AM [facility] MCH 27.7 26.7 - 34.0 pg 09/19/2021 4:05 AM [facility] MCHC 32.4 30.8 - 35.9 g/dL 09/19/2021 4:05 AM [facility] Platelet Count 287 150 - 400 10? 3 /uL 09/19/2021 4:05 AM [facility] RDW-SD 37.6 36.0 - 50.0 fL 09/19/2021 4:05 AM [facility] RDW-CV 12.1 11.2 - 14.8 % 09/19/2021 4:05 AM [facility] MPV 10.0 9.4 - 12.9 fL 09/19/2021 4:05 AM [facility] nRBC Absolute 0.00 0 10? 3 /uL 09/19/2021 4:05 AM [facility] nRBC Auto 0.0 0 /100 WBC 09/19/2021 4:05 AM [facility] Blood BLOOD SPECIMEN / Unknown Lab Venipuncture / Unknown 09/19/2021 3:37 AM CDT 09/19/2021 3:46 AM CDT Ananda Gilbert DO LAB - HEMATOLOGY ORD ERABLES [facility] [address] [place] [address], [facility] [phone] * BASIC METABOLIC PANEL (CALCIUM TOTAL) (09/19/2021 3:37 AM T) BUN 9 7 - 26 mg/dL 09/19/2021 4:19 AM [facility] Creatinine 0.73 0.71 - 1.16 mg/dL 09/19/2021 4:19 AM [facility] Sodium 140 136 - 145 mmol/L 09/19/2021 4:19 AM [facility] Potassium 3.5 3.5 - 4.5 mmol/L 09/19/2021 4:19 AM [facility] Chloride 105 98 - 107 mmol/L 09/19/2021 4:19 AM [facility] CO2 23 22 - 29 mmol/L 09/19/2021 4:19 AM [facility] Glucose 104 70 - 115 mg/dL 09/19/2021 4:19 AM [facility] Calcium 8.6 8.4 - 10.2 mg/dL 09/19/2021 4:19 AM [facility] Anion Gap 16 8 - 18 09/19/2021 4:19 AM [facility] BUN/Creatinine Ratio 12 7 - 23 09/19/2021 4:19 AM [facility] Osmolality Calculated 289 270 - 300 mOsm/kg 09/19/2021 4:19 AM [facility] eGFR by CKD-EPI >90 >=90 mL/min/1.7 3 m2 09/19/2021 4:19 AM [facility] Blood BLOOD SPECIMEN / Unknown Lab Venipuncture / Unknown 09/19/2021 3:37 AM CDT 09/19/2021 3:45 AM CDT Ananda Orellana Vladimir [facility] - CHEMISTRY ZIPatricia TEJADAMATHIEU [facility] [address] [place] [address], [place] [phone] * GLUCOSE - POINT OF CARE (09/19/2021 12:13 AM CDT) Glucose WB/POC 112 70 - 115 mg/dL 09/19/2021 12:20 AM CDT [facility] Specimen Type Cap Fingerstick 2021 12:20 AM CDT [facility] Blood BLOOD SPECIMEN / Unknown 09/19/2021 12:13 AM CDT 09/19/2021 12:20 AM CDT Ananda Goodrichper DO LAB - POINT OF CARE ORDERABLES Performing Organization Address City/[facility]/ZIP Co de Phone Number [address] [address], [place] [phone] * GLUCOSE - POINT OF CARE (09/18/2021 8:01 PM CDT) Glucose WB/POC 98 70 - 115 mg/dL 09/18/2021 8:02 PM CDT [facility] Specimen Type Cap Fingerstick 2021 8:02 PM CDT [facility] Blood BLOOD SPECIMEN / Unknown 09/18/2021 8:01 PM CDT 09/18/2021 8:02 PM CDT Ananda Goodrichper DO LAB - POINT OF CARE ORDERABLES [facility] [address] [place] [address], [place] [phone] * GLUCOSE - POINT OF CARE (09/18/2021 5:11 PM CDT) Glucose WB/POC 107 70 - 115 mg/dL 09/18/2021 5:12 PM CDT [facility] Specimen Type Arterial 09/18/2021 5:12 PM CDT [facility] Blood BLOOD SPECIMEN / Unknown 09/18/2021 5:11 PM CDT 09/18/2021 5:12 PM CDT Ananda Orellana Vladimir DO LAB - POINT OF CARE ORDERABLES [facility] [address] [place] [address], [place] [phone] * (ABNORMAL) GLUCOSE - POINT OF CARE (09/18/2021 12:04 PM CDT) Glucose WB/POC 125(H) 70 - 115 mg/dL 09/18/2021 12:05 PM CDT [facility] Specimen Type Arterial 09/18/2021 12:05 PM CDT [facility] Blood BLOOD SPECIMEN / Unknown 09/18/2021 12:04 PM CDT 09/18/2021 12:05 PM CDT Ananda Orellana Vladimir DO LAB - POINT OF CARE ORDERABLES Performing Organization Address City/[facility]/ZIP Co de Phone Number [facility] [address] [place] [address], [place] [phone] * (ABNORMAL) GLUCOSE - POINT OF CARE (09/18/2021 7:57 AM CDT) Glucose WB/POC 126(H) 70 - 115 mg/dL 09/18/2021 11:48 AM CDT [facility] Specimen Type Arterial 09/18/2021 11:48 AM CDT [facility] Blood BLOOD SPECIMEN / Unknown 09/18/2021 7:57 AM CDT 09/18/2021 11:47 AM CDT Ananda Orellana Vladimir DO LAB - POINT OF CARE ORDERABLES [facility] [address] [place] [address], [place] [phone] * (ABNORMAL) GLUCOSE - POINT OF CARE (09/18/2021 4:34 AM CDT) Glucose WB/POC 136(H) 70 - 115 mg/dL 09/18/2021 7:24 PM CDT [facility] Specimen Type Cap Fingerstick 2021 7:24 PM CDT [facility] Blood BLOOD SPECIMEN / Unknown 09/18/2021 4:34 AM CDT 09/18/2021 7:23 PM CDT Ananda Gilbert DO LAB - POINT OF CARE ORDERABLES [facility] [address] [place] [address], [place] [phone] * PHOSPHORUS BLOOD (09/18/2021 3:06 AM CDT) Phosphorus 3.4 2.8 - 5.1 mg/dL 09/18/2021 3:47 AM CDT [facility] Blood BLOOD SPECIMEN / Unknown Lab Venipuncture / Unknown 09/18/2021 3:06 AM CDT 09/18/2021 3:16 AM CDT Ananda Gilbert DO LAB - CHEMISTRY ORDE ERIC [facility] [address] [place] [address], [place] [phone] * MAGNESIUM BLOOD (09/18/2021 3:06 AM CDT) Magnesium 2.2 1.6 - 2.6 mg/dL 09/18/2021 3:47 AM CDT [facility] Blood BLOOD SPECIMEN / Unknown Lab Venipuncture / Unknown 09/18/2021 3:06 AM CDT 09/18/2021 3:16 AM CDT Ananda Gilbert DO LAB - CHEMISTRY ORDE RABLES [facility] [address] [place] [address], [facility] [phone] * (ABNORMAL) CBC W/O DIFFERENTIAL (09/18/2021 3:06 AM CDT) WBC 10.7(H) 3.5 - 10.5 10? 3 /uL 09/18/2021 3:24 AM [facility] RBC 4.46 4.30 - 5.70 10? 6 /uL 09/18/2021 3:24 AM [facility] Hemoglobin 12.6 12.0 - 17.6 g/dL 09/18/2021 3:24 AM [facility] Hematocrit 38.5 35.2 - 51.7 % 09/18/2021 3:24 AM [facility] MCV 86.3 80.7 - 98.3 fL 09/18/2021 3:24 AM [facility] MCH 28.3 26.7 - 34.0 pg 09/18/2021 3:24 AM [facility] MCHC 32.7 30.8 - 35.9 g/dL 09/18/2021 3:24 AM [facility] Platelet Count 380 150 - 400 10? 3 /uL 09/18/2021 3:24 AM [facility] RDW-SD 38.5 36.0 - 50.0 fL 09/18/2021 3:24 AM [facility] RDW-CV 12.2 11.2 - 14.8 % 09/18/2021 3:24 AM [facility] MPV 10.0 9.4 - 12.9 fL 09/18/2021 3:24 AM [facility] nRBC Absolute 0.00 0 10? 3 /uL 09/18/2021 3:24 AM [facility] nRBC Auto 0.0 0 /100 WBC 09/18/2021 3:24 AM [facility] Blood BLOOD SPECIMEN / Unknown Lab Venipuncture / Unknown 09/18/2021 3:06 AM CDT 09/18/2021 3:16 AM CDT Ananda Gilbert DO LAB - HEMATOLOGY ORD ERABLES Performing Organization Address [facility] Co de Phone Number [facility] [address] [place] [address], [facility] [phone] * (ABNORMAL) BASIC METABOLIC PANEL (CALCIUM TOTAL) (09/18/2021 3:06 AM CDT) BUN 11 7 - 26 mg/dL 09/18/2021 3:47 AM [facility] Creatinine 0.84 0.71 - 1.16 mg/dL 09/18/2021 3:47 AM [facility] Sodium 139 136 - 145 mmol/L 09/18/2021 3:47 AM [facility] Potassium 4.4 3.5 - 4.5 mmol/L 09/18/2021 3:47 AM [facility] Chloride 108(H) 98 - 107 mmol/L 09/18/2021 3:47 AM [facility] CO2 22 22 - 29 mmol/L 09/18/2021 3:47 AM [facility] Glucose 133(H) 70 - 115 mg/dL 09/18/2021 3:47 AM [facility] Calcium 9.1 8.4 - 10.2 mg/dL 09/18/2021 3:47 AM [facility] Anion Gap 13 8 - 18 09/18/2021 3:47 AM [facility] BUN/Creatinine Ratio 13 7 - 23 09/18/2021 3:47 AM [facility] Osmolality Calculated 289 270 - 300 mOsm/kg 09/18/2021 3:47 AM [facility] eGFR by CKD-EPI >90 >=90 mL/min/1.7 3 m2 09/18/2021 3:47 AM [facility] Blood BLOOD SPECIMEN / Unknown Lab Venipuncture / Unknown 09/18/2021 3:06 AM CDT 09/18/2021 3:16 AM CDT Ananda Gilbert DO LAB - CHEMISTRY ORDE RABMATHIEU [facility] [address] [place] [address], [facility] [phone] * (ABNORMAL) GLUCOSE - POINT OF CARE (09/18/2021 12:39 AM CDT) Glucose WB/POC 135(H) 70 - 115 mg/dL 09/18/2021 11:47 AM CDT [facility] Specimen Type Cap Fingerstick 2021 11:47 AM CDT [facility] Blood BLOOD SPECIMEN / Unknown 09/18/2021 12:39 AM CDT 09/18/2021 11:47 AM CDT Ananda Gilbert DO LAB - POINT OF CARE ORDERABLES Performing Organization Address City/[facility]/ZIP Co de Phone Number [facility] [address] [place] [address], [facility] [phone] * XR ABDOMEN KUB PORTABLE (09/17/2021 9:12 [...] POINT OF CARE (09/17/2021 8:01 PM CDT) [facility] Glucose WB/POC 163(H) 70 - 115 mg/dL 09/17/2021 8:42 PM CDT [facility] Specimen Type Cap Fingerstick 2021 8:42 PM CDT [facility] Blood BLOOD SPECIMEN / Unknown 09/17/2021 8:01 PM CDT 09/17/2021 8:42 PM CDT Ananda Gilbert DO LAB - POINT OF CARE ORDERABLES [facility] [address] [place] [address], [facility] [phone] * (ABNORMAL) CBC W AUTO DIFFERENTIAL (09/17/2021 7:33 PM CDT) [facility] WBC 15.3(H) 3.5 - 10.5 10? 3 /uL 09/17/2021 8:44 PM CDT [facility] RBC 4.76 4.30 - 5.70 10? 6 /uL 09/17/2021 8:44 PM [facility] Hemoglobin 13.5 12.0 - 17.6 g/dL 09/17/2021 8:44 PM [facility] Hematocrit 40.5 35.2 - 51.7 % 09/17/2021 8:44 PM [facility] MCV 85.1 80.7 - 98.3 fL 09/17/2021 8:44 PM [facility] MCH 28.4 26.7 - 34.0 pg 09/17/2021 8:44 PM [facility] MCHC 33.3 30.8 - 35.9 g/dL 09/17/2021 8:44 PM [facility] Platelet Count 426(H) 150 - 400 10? 3 /uL 09/17/2021 8:44 PM [facility] RDW-SD 37.2 36.0 - 50.0 fL 09/17/2021 8:44 PM [facility] RDW-CV 12.1 11.2 - 14.8 % 09/17/2021 8:44 PM [facility] MPV 10.0 9.4 - 12.9 fL 09/17/2021 8:44 PM [facility] nRBC Absolute 0.00 0 10? 3 /uL 09/17/2021 8:44 PM [facility] nRBC Auto 0.0 0 /100 WBC 09/17/2021 8:44 PM [facility] Neutrophils % 89.3(H) 35.0 - 70.0 % 09/17/2021 8:44 PM [facility] Lymphocytes % 4.9(L) 20.0 - 43.0 % 09/17/2021 8:44 PM [facility] Monocytes % 4.8(L) 5.0 - 13.0 % 09/17/2021 8:44 PM [facility] Eosinophils % 0.0 0.0 - 6.0 % 09/17/2021 8:44 PM [facility] Basophil % 0.3 0.0 - 2.0 % 09/17/2021 8:44 PM [facility] Neutrophils Absolute 13.6(H) 1.6 - 7.0 10? 3 /uL 09/17/2021 8:44 PM T [facility] Lymphocyte Absolute 0.7(L) 1.1 - 3.9 10? 3 /uL 09/17/2021 8:44 PM T [facility] Monocytes Absolute 0.73 0.26 - 1.07 10? 3 /uL 09/17/2021 8:44 PM T [facility] Eosinophils Absolute 0.00 0.00 - 0.47 10? 3 /uL 09/17/2021 8:44 PM CDT [facility] Basophils Absolute 0.04 0.00 - 0.08 10? 3 /uL 09/17/2021 8:44 PM [facility] Immature Granulocytes % 0.7 0.0 - 1.0 % 09/17/2021 8:44 PM T [facility] Immature Granulocytes Absolute 0.11 09/17/2021 8:44 PM [facility] Blood BLOOD SPECIMEN / Unknown Lab Venipuncture / Unknown 09/17/2021 7:33 PM CDT 09/17/2021 8:39 PM CDT Ananda Gilbert DO LAB - HEMATOLOGY ORD ERABLES [address] [address], [place] [phone] * (ABNORMAL) GLUCOSE - POINT OF CARE (09/17/2021 6:14 PM CDT) [facility] Signature Glucose WB/POC 147(H) 70 - 115 mg/dL 09/18/2021 12:28 AM T [facility] Specimen Type Arterial 09/18/2021 12:28 AM T [facility] Blood BLOOD SPECIMEN / Unknown 09/17/2021 6:14 PM CDT 09/18/2021 12:28 AM CDT Ananda Gilbert DO LAB - POINT OF CARE ORDERABLES [address] [address], [place] [phone] * (ABNORMAL) GLUCOSE - POINT OF CARE (09/17/2021 12:39 PM CDT) Glucose WB/POC 136(H) 70 - 115 mg/dL 09/17/2021 8:04 PM CDT [facility] Specimen Type Cap Fingerstick 2021 8:04 PM CDT [facility] Blood BLOOD SPECIMEN / Unknown 09/17/2021 12:39 PM CDT 09/17/2021 8:04 PM CDT Ananda Gilbert DO LAB - POINT OF CARE ORDERABLES Performing Organization Address [facility] Co de Phone Number [facility] [address] [place] [address], [facility] [phone] * PATHOLOGY TISSUE (09/17/2021 11:23 AM CDT) Case Report Surgical Pathology Report ? Case: [id number] ? Authorizing Provider: ??Cindi Cesar, ??Collected: ? 09/17/2021 11:23 AM ? MD ? Ordering Location: ? [facility] ?Received: ?09/17/2021 01:42 PM ? Pathologist: ? Steffany Sarmiento MD ? Specimen: ?Colon Ileum, ileum ? 09/21/2021 3:28 PM CDT [facility] Final Diagnosis Small intestine, ileum, resection (A): - Serosal adhesions, stricture, and focal ulceration - Surgical margins viable - See comment 09/21/2021 3:28 PM [facility] Microscopic Description and Comment Microscopic examination substantiates the final diagnosis. 09/21/2021 3:28 PM [facility] Clinical History The patient is [...] to the umbilicus, transected. 09/21/2021 3:28 PM [facility] Gross Description The requisition and specimen label(s) are identified with the patient's name, Chuck Barlow. Received in formalin, specimen A , is [...] [place]-pink mucosa with the normal folding pattern. Supervisor Sanding sections are submitted as follows: [id number], en face, A3-strictured area/serosal disruption, A4-uninvolved 09/21/2021 3:28 PM CDT [facility] Disclaimer The performance characteristics of all immunohistochemical and indirect immunofluorescence stains (if any) cited in this report were determined by the Histopathology Laboratory of [facility]. Some of these tests were developed [...] attending (teaching) pathologist. 09/21/2021 3:28 PM CDT [facility] Embedded Images 09/21/2021 3:28 PM CDT [facility] Biopsy, Excision ENTIRE ILEUM / Unknown 09/17/2021 11:23 AM CDT 09/17/2021 1:42 PM CDT Comment:Pre-op diagnosis: Small bowel obstruction [K56.609] Cindi Cesar MD LAB - PATHOLO GY/CYTOLOGY ORDERABLES Performing Organization Address City/State/[facility] Co pr Phone Number [facility] [address] [phone] * [place] SMALL BOWEL SERIES (09/17/2021 10:45 [...] of colon (contrast is seen on the denture technician exam within the ascending colon, positioned near [...] of colon (contrast is seen on the denture technician exam within the ascending colon,positioned near midline, from prior outside exam). IMPRESSION: High-grade or complete small bowel obstruction. This report was electronically signed by CITLALLI WELLINGTON M.D. on 09/17/2021 2:18 PM . Ananda Gilbert DO FLUOROSCOPY ORDERABL ES * (ABNORMAL) GLUCOSE - POINT OF CARE (09/17/2021 8:07 AM CDT) Glucose WB/POC 141(H) 70 - 115 mg/dL 09/17/2021 8:41 AM CDT [facility] Specimen Type Arterial 09/17/2021 8:41 AM T [facility] Blood BLOOD SPECIMEN / Unknown 09/17/2021 8:07 AM CDT 09/17/2021 8:41 AM CDT Ananda Orellana Vladimir [facility] - POINT OF CARE ORDERABLES [address] [address], [place] [phone] * (ABNORMAL) GLUCOSE - POINT OF CARE (09/17/2021 4:35 AM CDT) Glucose WB/POC 130(H) 70 - 115 mg/dL 09/17/2021 4:35 AM CDT [facility] Specimen Type Cap Fingerstick 2021 4:35 AM CDT [facility] Blood BLOOD SPECIMEN / Unknown 09/17/2021 4:35 AM CDT 09/17/2021 4:35 AM CDT Ananda Orellana Vladimir [facility] - POINT OF CARE ORDERABLES [address] [address], [place] [phone] * PHOSPHORUS BLOOD (09/17/2021 2:28 AM CDT) Phosphorus 4.5 2.8 - 5.1 mg/dL 09/17/2021 3:24 AM CDT [facility] Blood BLOOD SPECIMEN / Unknown Lab Venipuncture / Unknown 09/17/2021 2:28 AM CDT 09/17/2021 2:42 AM CDT Ananda Orellana Vladimir [facility] - CHEMISTRY ORDE RABLES [address] [address], [place] [phone] * MAGNESIUM BLOOD (09/17/2021 2:28 AM CDT) Magnesium 2.5 1.6 - 2.6 mg/dL 09/17/2021 3:24 AM [facility] Blood BLOOD SPECIMEN / Unknown Lab Venipuncture / Unknown 09/17/2021 2:28 AM CDT 09/17/2021 2:42 AM CDT Ananda Gilbert DO LAB - CHEMISTRY ZIE ERIC [facility] [address] [place] [address], [facility] [phone] * (ABNORMAL) CBC W/O DIFFERENTIAL (09/17/2021 2:28 AM CDT) WBC 13.8(H) 3.5 - 10.5 10? 3 /uL 09/17/2021 2:54 AM [facility] RBC 5.14 4.30 - 5.70 10? 6 /uL 09/17/2021 2:54 AM [facility] Hemoglobin 14.5 12.0 - 17.6 g/dL 09/17/2021 2:54 AM [facility] Hematocrit 43.1 35.2 - 51.7 % 09/17/2021 2:54 AM [facility] MCV 83.9 80.7 - 98.3 fL 09/17/2021 2:54 AM [facility] MCH 28.2 26.7 - 34.0 pg 09/17/2021 2:54 AM [facility] MCHC 33.6 30.8 - 35.9 g/dL 09/17/2021 2:54 AM [facility] Platelet Count 413(H) 150 - 400 10? 3 /uL 09/17/2021 2:54 AM [facility] RDW-SD 37.2 36.0 - 50.0 fL 09/17/2021 2:54 AM [facility] RDW-CV 12.2 11.2 - 14.8 % 09/17/2021 2:54 AM [facility] MPV 9.7 9.4 - 12.9 fL 09/17/2021 2:54 AM [facility] nRBC Absolute 0.00 0 10? 3 /uL 09/17/2021 2:54 AM [facility] nRBC Auto 0.0 0 /100 WBC 09/17/2021 2:54 AM [facility] Blood BLOOD SPECIMEN / Unknown Lab Venipuncture / Unknown 09/17/2021 2:28 AM CDT 09/17/2021 2:42 AM CDT Ananda Gilbert DO LAB - HEMATOLOGY ORD ERABLES Performing Organization Address City/[facility]/ZIP Co de Phone Number [facility] [address] [place] [address], [facility] [phone] * (ABNORMAL) BASIC METABOLIC PANEL (CALCIUM TOTAL) (09/17/2021 2:28 AM CDT) BUN 16 7 - 26 mg/dL 09/17/2021 3:24 AM [facility] Creatinine 0.91 0.71 - 1.16 mg/dL 09/17/2021 3:24 AM [facility] Sodium 138 136 - 145 mmol/L 09/17/2021 3:24 AM [facility] Potassium 3.9 3.5 - 4.5 mmol/L 09/17/2021 3:24 AM [facility] Chloride 103 98 - 107 mmol/L 09/17/2021 3:24 AM [facility] CO2 20(L) 22 - 29 mmol/L 09/17/2021 3:24 AM [facility] Glucose 128(H) 70 - 115 mg/dL 09/17/2021 3:24 AM [facility] Calcium 10.1 8.4 - 10.2 mg/dL 09/17/2021 3:24 AM [facility] Anion Gap 19(H) 8 - 18 09/17/2021 3:24 AM [facility] BUN/Creatinine Ratio 18 7 - 23 09/17/2021 3:24 AM [facility] Osmolality Calculated 289 270 - 300 mOsm/kg 09/17/2021 3:24 AM [facility] eGFR by CKD-EPI >90 >=90 mL/min/1.7 3 m2 09/17/2021 3:24 AM [facility] Blood BLOOD SPECIMEN / Unknown Lab Venipuncture / Unknown 09/17/2021 2:28 AM CDT 09/17/2021 2:42 AM CDT Ananda Orellana Vladimir DO LAB - CHEMISTRY ZIPatricia REYES Performing Organization Address City/[facility]/ZIP Co de Phone Number [address] [address], [place] [phone] * (ABNORMAL) GLUCOSE - POINT OF CARE (09/17/2021 12:35 AM CDT) Glucose WB/POC 128(H) 70 - 115 mg/dL 09/17/2021 12:39 AM CDT [facility] Specimen Type Cap Fingerstick 2021 12:39 AM CDT [facility] Blood BLOOD SPECIMEN / Unknown 09/17/2021 12:35 AM CDT 09/17/2021 12:39 AM CDT Ananda Goodrichper DO LAB - POINT OF CARE ORDERABLES Performing Organization Address [facility]/ZIP Co de Phone Number [address] [address], [place] [phone] * GLUCOSE - POINT OF CARE (09/16/2021 7:40 PM CDT) Glucose WB/POC 107 70 - 115 mg/dL 09/16/2021 7:41 PM CDT [facility] Specimen Type Cap Fingerstick 2021 7:41 PM CDT [facility] Blood BLOOD SPECIMEN / Unknown 09/16/2021 7:40 PM CDT 09/16/2021 7:41 PM CDT Ananda Orellana Vladimir DO LAB - POINT OF CARE ORDERABLES [address] [address], [place] [phone] * GLUCOSE - POINT OF CARE (09/16/2021 5:59 PM CDT) Glucose WB/POC 100 70 - 115 mg/dL 09/16/2021 7:41 PM CDT [facility] Specimen Type Cap Fingerstick 2021 7:41 PM CDT [facility] Blood BLOOD SPECIMEN / Unknown 09/16/2021 5:59 PM CDT 09/16/2021 7:41 PM CDT Ananda Orellana Vladimir DO LAB - POINT OF CARE ORDERABLES [address] [address], [place] [phone] * GLUCOSE - POINT OF CARE (09/16/2021 11:31 AM CDT) Glucose WB/POC 98 70 - 115 mg/dL 09/16/2021 11:36 AM CDT [facility] Specimen Type Cap Fingerstick 2021 11:36 AM CDT [facility] Blood BLOOD SPECIMEN / Unknown 09/16/2021 11:31 AM CDT 09/16/2021 11:36 AM CDT Ananda Goodrichper DO LAB - POINT OF CARE ORDERABLES Performing Organization Address City/[facility]/ZIP Co de Phone Number [address] [address], [place] [phone] * GLUCOSE - POINT OF CARE (09/16/2021 8:57 AM CDT) Glucose WB/POC 84 70 - 115 mg/dL 09/16/2021 9:02 AM CDT [facility] Specimen Type Cap Fingerstick 2021 9:02 AM CDT [facility] Blood BLOOD SPECIMEN / Unknown 09/16/2021 8:57 AM CDT 09/16/2021 9:02 AM CDT Ananda Goodrichper DO LAB - POINT OF CARE ORDERABLES [address] [address], [place] [phone] * GLUCOSE - POINT OF CARE (09/16/2021 5:26 AM CDT) Glucose WB/POC 79 70 - 115 mg/dL 09/16/2021 5:27 AM CDT [facility] Specimen Type Arterial 09/16/2021 5:27 AM CDT [facility] Blood BLOOD SPECIMEN / Unknown 09/16/2021 5:26 AM CDT 09/16/2021 5:27 AM CDT Ananda Gilbert DO LAB - POINT OF CARE ORDERABLES Performing Organization Address City/[facility]/ZIP Co de Phone Number [address] [address], [place] [phone] * PHOSPHORUS BLOOD (09/16/2021 2:38 AM CDT) Phosphorus 3.8 2.8 - 5.1 mg/dL 09/16/2021 3:25 AM CDT [facility] Blood BLOOD SPECIMEN / Unknown Lab Venipuncture / Unknown 09/16/2021 2:38 AM CDT 09/16/2021 2:52 AM CDT Ananda Gilbert DO LAB - CHEMISTRY ORDE RABMATHIEU [address] [address], [place] [phone] * MAGNESIUM BLOOD (09/16/2021 2:38 AM CDT) Magnesium 2.1 1.6 - 2.6 mg/dL 09/16/2021 3:25 AM CDT [facility] Blood BLOOD SPECIMEN / Unknown Lab Venipuncture / Unknown 09/16/2021 2:38 AM CDT 09/16/2021 2:52 AM CDT Ananda Gilbert DO LAB - CHEMISTRY ORDE RABMATHIEU [facility] [address] [place] [address], [facility] [phone] * (ABNORMAL) CBC W/O DIFFERENTIAL (09/16/2021 2:38 AM CDT) WBC 10.6(H) 3.5 - 10.5 10? 3 /uL 09/16/2021 3:02 AM [facility] RBC 4.74 4.30 - 5.70 10? 6 /uL 09/16/2021 3:02 AM [facility] Hemoglobin 13.4 12.0 - 17.6 g/dL 09/16/2021 3:02 AM [facility] Hematocrit 40.3 35.2 - 51.7 % 09/16/2021 3:02 AM [facility] MCV 85.0 80.7 - 98.3 fL 09/16/2021 3:02 AM [facility] MCH 28.3 26.7 - 34.0 pg 09/16/2021 3:02 AM [facility] MCHC 33.3 30.8 - 35.9 g/dL 09/16/2021 3:02 AM [facility] Platelet Count 360 150 - 400 10? 3 /uL 09/16/2021 3:02 AM [facility] RDW-SD 36.3 36.0 - 50.0 fL 09/16/2021 3:02 AM [facility] RDW-CV 11.9 11.2 - 14.8 % 09/16/2021 3:02 AM [facility] MPV 9.7 9.4 - 12.9 fL 09/16/2021 3:02 AM [facility] nRBC Absolute 0.00 0 10? 3 /uL 09/16/2021 3:02 AM [facility] nRBC Auto 0.0 0 /100 WBC 09/16/2021 3:02 AM [facility] Blood BLOOD SPECIMEN / Unknown Lab Venipuncture / Unknown 09/16/2021 2:38 AM CDT 09/16/2021 2:52 AM CDT Ananda Gilbert DO LAB - HEMATOLOGY ORD ERABLES [facility] [address] [place] [address], [facility] [phone] * (ABNORMAL) BASIC METABOLIC PANEL (CALCIUM TOTAL) (09/16/2021 2:38 AM CDT) BUN 7 7 - 26 mg/dL 09/16/2021 3:25 AM [facility] Creatinine 0.77 0.71 - 1.16 mg/dL 09/16/2021 3:25 AM [facility] Sodium 141 136 - 145 mmol/L 09/16/2021 3:25 AM [facility] Potassium 3.8 3.5 - 4.5 mmol/L 09/16/2021 3:25 AM [facility] Chloride 102 98 - 107 mmol/L 09/16/2021 3:25 AM [facility] CO2 20(L) 22 - 29 mmol/L 09/16/2021 3:25 AM [facility] Glucose 77 70 - 115 mg/dL 09/16/2021 3:25 AM [facility] Calcium 9.8 8.4 - 10.2 mg/dL 09/16/2021 3:25 AM [facility] Anion Gap 23(H) 8 - 18 09/16/2021 3:25 AM [facility] BUN/Creatinine Ratio 9 7 - 23 09/16/2021 3:25 AM [facility] Osmolality Calculated 289 270 - 300 mOsm/kg 09/16/2021 3:25 AM [facility] eGFR by CKD-EPI >90 >=90 mL/min/1.7 3 m2 09/16/2021 3:25 AM [facility] Blood BLOOD SPECIMEN / Unknown Lab Venipuncture / Unknown 09/16/2021 2:38 AM CDT 09/16/2021 2:52 AM CDT Ananda Gilbert DO LAB - CHEMISTRY ORDE RABMATHIEU [facility] [address] [place] [address], [facility] [phone] * (ABNORMAL) HEMOGLOBIN A1C (09/16/2021 2:38 AM CDT) Hemoglobin A1c 6.5(H) <=5.6 % 09/16/2021 11:55 AM CDT [facility] Estimated Average Glucose 140 mg/dL 09/16/2021 11:55 AM CDT [facility] Comment: HbA1c Interpretation: Normal : < 5.7% Pre-diabetes: 5.7-6.4% Diabetes: Equal to or greater than 6.5% Test results diagnostic of diabetes should be repeated for confirmation. Treatment target values recommended by ADA and other clinical organizations should be used to evaluate metabolic control in patients. Reference: [place] [employer], Standards of Care in Diabetes [...] Gilbert DO LAB - CHEMISTRY [place] Performing Organization Address City/[facility] Co de Phone Number [facility] [address] [place] [address], [facility] [phone] * GLUCOSE - POINT OF CARE (09/15/2021 11:29 PM CDT) Glucose WB/POC 75 70 - 115 mg/dL 09/15/2021 11:30 PM CDT [facility] Specimen Type Arterial 09/15/2021 11:30 PM CDT [facility] Blood BLOOD SPECIMEN / Unknown 09/15/2021 11:29 PM CDT 09/15/2021 11:30 PM CDT Ananda Gilbert DO LAB - POINT OF CARE ORDERABLES [facility] [address] [place] [address], [facility] [phone] * CT ABDOMEN PELVIS W CONTRAST (09/15/2021 [...] - 26 mg/dL 09/15/2021 7:32 PM CDT [facility] Creatinine 0.64(L) 0.71 - 1.16 mg/dL 09/15/2021 7:32 PM CDT [facility] Sodium 139 136 - 145 mmol/L 09/15/2021 7:32 PM CDT [facility] Potassium 3.7 3.5 - 4.5 mmol/L 09/15/2021 7:32 PM [facility] Chloride 101 98 - 107 mmol/L 09/15/2021 7:32 PM [facility] CO2 24 22 - 29 mmol/L 09/15/2021 7:32 PM [facility] Glucose 79 70 - 115 mg/dL 09/15/2021 7:32 PM [facility] Calcium 9.7 8.4 - 10.2 mg/dL 09/15/2021 7:32 PM [facility] Protein Total 7.7 6.0 - 8.3 g/dL 09/15/2021 7:32 PM [facility] Albumin 3.7 3.4 - 5.0 g/dL 09/15/2021 7:32 PM [facility] Bilirubin Total 1.2 0.2 - 1.2 mg/dL 09/15/2021 7:32 PM [facility] Alkaline Phosphatase 80 40 - 150 U/L 09/15/2021 7:32 PM [facility] ALT 47 5 - 55 U/L 09/15/2021 7:32 PM [facility] AST 22 5 - 34 U/L 09/15/2021 7:32 PM [facility] Anion Gap 18 8 - 18 09/15/2021 7:32 PM [facility] BUN/Creatinine Ratio 11 7 - 23 09/15/2021 7:32 PM [facility] Osmolality Calculated 285 270 - 300 mOsm/kg 09/15/2021 7:32 PM [facility] Albumin/Globulin Ratio 0.9(L) 1.1 - 2.3 09/15/2021 7:32 PM [facility] eGFR by CKD-EPI >90 >=90 mL/min/1.7 3 m2 09/15/2021 7:32 PM [facility] Blood BLOOD SPECIMEN / Unknown Lab Venipuncture / Unknown 09/15/2021 6:48 PM CDT 09/15/2021 7:07 PM T Ananda Gilbert DO LAB - CHEMISTRY [place] [facility] [address] [place] [address], [facility] [phone] * (ABNORMAL) CBC W/O DIFFERENTIAL (09/15/2021 6:48 PM CDT) WBC 11.1(H) 3.5 - 10.5 10? 3 /uL 09/15/2021 7:15 PM T [facility] RBC 4.83 4.30 - 5.70 10? 6 /uL 09/15/2021 7:15 PM [facility] Hemoglobin 13.8 12.0 - 17.6 g/dL 09/15/2021 7:15 PM [facility] Hematocrit 41.0 35.2 - 51.7 % 09/15/2021 7:15 PM [facility] MCV 84.9 80.7 - 98.3 fL 09/15/2021 7:15 PM [facility] MCH 28.6 26.7 - 34.0 pg 09/15/2021 7:15 PM [facility] MCHC 33.7 30.8 - 35.9 g/dL 09/15/2021 7:15 PM [facility] Platelet Count 323 150 - 400 10? 3 /uL 09/15/2021 7:15 PM [facility] RDW-SD 35.8(L) 36.0 - 50.0 fL 09/15/2021 7:15 PM [facility] RDW-CV 11.9 11.2 - 14.8 % 09/15/2021 7:15 PM [facility] MPV 9.8 9.4 - 12.9 fL 09/15/2021 7:15 PM [facility] nRBC Absolute 0.00 0 10? 3 /uL 09/15/2021 7:15 PM [facility] nRBC Auto 0.0 0 /100 WBC 09/15/2021 7:15 PM [facility] Blood BLOOD SPECIMEN / Unknown Lab Venipuncture / Unknown 09/15/2021 6:48 PM CDT 09/15/2021 7:07 PM CDT Ananda Gilbert LAB - HEMATOLOGY ORD ERABLES [facility] [address] [place] [address], [facility] [phone] documented in this encounter Visit Diagnoses Diagnosis Small bowel obstruction (HCC)- Primary Unspecified intestinal obstruction Small bowel obstruction (HCC) Unspecified intestinal obstruction History of gastroschisis Controlled type 2 diabetes mellitus without complication, without long-term current use of insulin (HCC) Arthrogryposis Other specific muscle disorders KARRIE (obstructive sleep apnea) Obstructive sleep apnea (adult) (pediatric) S/P small bowel resection Other postprocedural status S/P exploratory laparotomy Other postprocedural status Postoperative abdominal pain Abdominal pain, unspecified site documented in this encounter Administered Medications Inactive Administered Medications - up to 3 most recent administrations Medication Order MAR Action Action Date Dose Rate Site *Hold/Avoid Anticoagulants and Antiplatelet agents EVERY 12 HOURS (08 and 20), First [...] 09/19/2021 8:37 PM CDT 3 mL acetaminophen (Ofirmev) injection 1,000 mg 1,000 mg, at 400 mL/hr, Intravenous, EVERY 8 HOURS, 3 doses, First dose on Tue09/17/21 at 2030, Last dose on Tue09/18/21 at 1230, Patient preference for lesser PRN pain meds may be honored when the patient requests a less strong medication, a lower dose, or a less intrusive route of administration when the lesser drug, dose and route have been ordered for the patient. This patient request must be documented in the MAR. $ New Bag/Syringe 09/18/2021 1:51 PM CDT 1,000 mg 400 mL/hr $ New Bag/Syringe 09/18/2021 5:00 AM CDT 1,000 mg 400 mL /hr $ New Bag/Syringe 09/17/2021 9:46 PM CDT 1,000 mg 400 mL /hr acetaminophen (Tylenol) tablet 650 mg 650 mg, [...] ineffective, Starting on Tue09/21/21 at 0633, Until Tu09/22/21 at 1049 cyclobenzaprine (Flexeril) tablet 10 mg 10 mg, Oral, 3 TIMES DAILY PRN, Muscle Spasms, Starting on Tue09/20/21 at 0706, Until Tue09/21/21 at 1249 $ Given 09/21/2021 8:05 AM CDT 10 mg cyclobenzaprine (Flexeril) tablet 10 mg 10 mg, [...] mg/dl. NOTIFY PROVIDER OF HYPOGLYCEMIC EVENT. dextrose 5 % and 0.45 % NaCl with KCl 20 mEq infusion at 100 mL/hr, Intravenous, CONTINUOUS, Starting on Tue09/16/21 at 1130, Until Tue09/17/21 at 1734 $ New Bag/Syringe 09/16/2021 11:25 AM CDT 100 mL/hr dextrose 5 % and 0.45% NaCl infusion at 100 mL/hr, Intravenous, CONTINUOUS, Starting on Avani 09/17/21 at 1815, Until Tue09/20/21 at 1645 $ New Bag/Syringe 09/20/2021 3:04 AM CDT 100 mL/hr $ New Bag/Syringe 09/19/2021 4:15 PM CDT 100 mL /hr $ New Bag/Syringe 09/19/2021 6:00 AM CDT 100 mL /hr enoxaparin (Lovenox) injection 40 mg 40 mg, Subcutaneous, DAILY, First dose on Tue09/15/21 at 1830, Until Discontinued, (for prefilled syringes) do not expel air bubble from the syringe prior to the injection Remind Patient to not rub injection site. Could cause hematoma. $ Given 09/22/2021 8:01 AM CDT 40 mg Ab dominal Tissue $ Given 09/21/2021 8:04 AM CDT [...] Given 09/21/2021 8:04 AM CDT 20 mg fentaNYL (PF) (Sublimaze) injection 50 mcg 50 mcg, Intravenous, EVERY 10 MIN PRN, Moderate Pain, 4 doses, Starting on Avani 09/17/21 at 1232, Until Avani 09/17/21 at 1351, Maximum total of 4 doses. If patient [...] documented in the MAR., PACU $ Given 09/17/2021 1:05 PM CDT 50 mcg $ Given 09/17/2021 12:40 PM CDT 50 mcg $ Given 09/17/2021 12:30 PM CDT 50 mcg glucagon (Glucagen) injection 1 mg 1 mg, Intramuscular, PRN, Bedside Glucose less than 70 mg/dL - If NOT able to eat and/or NPO and withOUT IV Access, Starting on Tue09/15/21 at 2156, Until Tue09/22/21 at 1049, If NOT able [...] at 1049, If able to eat and can swallow [...] 1750, Until Tue09/22/21 at 1049 HYDROmorphone (Dilaudid) 0.2 mg/ml TOP FLAVOR ATTENDANT TOP FLAVOR ATTENDANT Dose: 0.2 mg, TOP FLAVOR ATTENDANT Lockout Interval: 10 Minutes, One Hour Limit\Max Limit: 1.2 mg, Clinician Bolus (Load): 0.2 mg, Intravenous, TOP FLAVOR ATTENDANT, Starting on Avani 09/17/21 at 1615, Until Avani 09/17/21 at 1956, TOP FLAVOR ATTENDANT Pump Therapy: Normal Risk (TOP FLAVOR ATTENDANT Only) $ New Bag/Syringe 09/17/2021 5:11 PM CDT HYDROmorphone (Dilaudid) 0.2 mg/ml TOP FLAVOR ATTENDANT TOP FLAVOR ATTENDANT Dose: 0.4 mg, TOP FLAVOR ATTENDANT Lockout Interval: 15 Minutes, One Hour Limit\Max Limit: 1.6 mg, Clinician Bolus (Load): 0.2 mg, Intravenous, TOP FLAVOR ATTENDANT, Starting on Avani 09/17/21 at 2000, Until [place] 09/20/21 at 1645, TOP FLAVOR ATTENDANT Pump Therapy: Normal Risk (TOP FLAVOR ATTENDANT Only) $ New Bag/Syringe 09/20/2021 8:04 AM CDT $ New Bag/Syringe 09/19/2021 9:19 AM CDT $ New Bag/Syringe 09/18/2021 1:12 PM CDT HYDROmorphone (Dilaudid) 10 mcg/mL, bupivacaine PF (Marcaine PF) 0.0625 % in 0.9% NaCl IV epidural infusion Epidural, CONTINUOUS, Starting on Avani 09/17/21 at 1100, For 5 days, THIS PATIENT IS AT RISK FOR FALLS $ New Bag/Syringe 09/17/2021 12:45 PM CDT HYDROmorphone (Dilaudid) 10 mcg/mL, bupivacaine PF (Marcaine PF) 0.0625 % in 0.9% NaCl IV epidural infusion Epidural, CONTINUOUS, Starting on Avani 09/17/21 at 1330, For 117 hours, THIS PATIENT IS AT RISK FOR FALLS $ New Bag/Syringe 09/17/2021 1:35 PM CDT HYDROmorphone (Dilaudid) injection 0.1 mg 0.1 mg, Intravenous, EVERY 2 HOURS PRN, Moderate Pain, Starting on Tue09/15/21 at 2056, Until Tue09/22/21 at 1049, If oral route [...] 4 HOURS PRN, Severe Pain, Starting on Tue09/15/21 at 1843, Until Tue09/15/21 at 2056, Patient preference for lesser PRN pain meds may be honored when the patient requests a less strong medication, a lower dose, or a less intrusive route of administration when the lesser drug, dose and route have been ordered for the patient. This patient request must be documented in the MAR. $ Given 09/15/2021 6:51 PM CDT 0.2 mg HYDROmorphone (Dilaudid) injection 0.2 mg 0.2 mg, Intravenous, EVERY 2 HOURS PRN, Severe Pain, Starting on Tue09/15/21 at 2056, Until Tue09/22/21 at 1049, Give IV if [...] Given 09/17/2021 12:46 AM CDT 0.2 mg HYDROmorphone (Dilaudid) injection 0.5 mg 0.5 mg, Intravenous, EVERY 10 MIN PRN, Severe Pain, Starting on Avani 09/17/21 at 1232, Until Avani 09/17/21 at 1351, Maximum total of 4 doses If patient [...] documented in the MAR., PACU $ Given 09/17/2021 1:20 PM CDT 0.5 mg $ Given 09/17/2021 12:50 PM CDT 0.5 mg $ Given 09/17/2021 12:35 PM CDT 0.5 mg insulin lispro (HumaLOG;ADMelog) [...] 8:14 PM CDT 1 Units Abdominal Tissue iopamidol (Isovue 300) 61 % contrast Intravenous, CONTRAST ONCE, Starting on Tue09/16/21 at 1451, Until Tue09/18/21 at 1450 $ Given - Contrast 09/16/2021 2:51 PM CDT 200 mL iopamidol (Isovue 370) 76 % contrast Intravenous, CONTRAST ONCE, Starting on Tue09/15/21 at 2002, Until Tue09/17/21 at 2001 $ Given - Contrast 09/15/2021 8:32 PM CDT 100 mL ketorolac (Toradol) injection 30 mg 30 mg, Intravenous, EVERY 6 HOURS PRN, Moderate Pain, Starting on Tue09/16/21 at 1155, Until Tue09/21/21 at 1154 $ Given 09/21/2021 8:04 AM CDT 30 mg $ Given 09/21/2021 1:15 AM CDT 30 mg $ Given 09/19/2021 10:32 PM CDT 30 mg labetalol (Normodyne; Trandate) injection 10 mg 10 mg, Intravenous, EVERY 4 HOURS PRN, SBP greater than 160 mmHg, Hold for HR <60, Starting on Tue09/15/21 at 1751, Until Tue09/22/21 at 1049, Max IV dose is 300mg/24 hours. lactated ringers infusion at 100 mL/hr, Intravenous, CONTINUOUS, Starting on Tue09/15/21 at 1830, Until Tue09/17/21 at 1255 $ New Bag/Syringe 09/16/2021 8:45 AM CDT 100 mL/hr $ New Bag/Syringe 09/15/2021 6:46 PM CDT 100 mL /hr lactated ringers infusion at 75 mL/hr, Intravenous, CONTINUOUS, Starting on Tue09/17/21 at 1245, Until Tue09/17/21 at 1351, PACU Restarted 09/17/2021 12:15 PM CDT 75 mL/hr lactated ringers IV bolus 1,000 mL, at 983.61 mL/hr, Administer over 61 Minutes, ONCE, 1 dose, On Tue09/17/21 at 2115 $ New Bag/Syringe 09/17/2021 10:04 PM CDT 1,000 mL 983.61 mL/hr lactated ringers IV bolus 1,000 mL, at 983.61 mL/hr, Administer over 61 Minutes, ONCE, 1 dose, On Tue09/18/21 at 1845 $ New Bag/Syringe 09/18/2021 6:41 PM CDT 1,000 mL 983.61 mL/hr lidocaine (Lidoderm) 5 % patch 1 patch [...] tablet 10 mg 10 mg, Oral, EVERY 4 HOURS, First [...] documented in the MAR. $ Given 09/21/2021 8:05 AM CDT 10 mg $ Given 09/21/2021 4:32 AM CDT 10 mg $ Given 09/20/2021 9:46 PM CDT 10 mg oxyCODONE (immediate release) (Roxicodone) tablet 10 [...] EVERY 6 HOURS PRN, Nausea/Vomiting, Starting on Tue09/17/21 at 0055, Until Tue09/22/21 at 1049, Max [...] Antiplatelet agents EVERY 12 HOURS (08 and 20), First dose on Tue09/17/21 at 1015, Until [...] hours after removal of the epidural catheter. [id number] (*Reviewed - Provider: Maeve Guardado RN)2050 (*Reviewed [...] RN)2050 (*Reviewed - Provider: Parisa Soares RN) 756 (*Reviewed - Provider: Angelina Garcia RN)2137 (*Reviewed - Provider: Parisa Saores RN) 0801 (*Reviewed - Provider: Angelina Garcia [...] Oral, EVERY 6 HOURS, First dose on [place] 09/20/21 at 0745, Until Discontinued, Patient preference for [...] RN) 0804 ($ Given - Provider: Angelina Radha, RN)2139 ($ Given - Provider: Parisa Soares [...] Reason: Per Administration Instructions - Comment: blood [id number] (Not Administered - Provider: Parisa Soares RN [...] Per Administration Instructions - Comment: blood sugar [id number] (Not Administered - Provider: Angelina Garcia RN - Reason: Per Administration Instructions) lidocaine (Lidoderm) 5 % patch 1 patch 1 patch, Administer over 12 Hours, EVERY 24 HOURS, First dose on Avani 09/17/21 at 2030, Until Discontinued, Apply near pain [...] request must be documented in the JUL. 2145 ($ Given - Provider: Parisa Soares [...] Until Discontinued, Do not crush or chew. 08 ($ Given - Provider: Angelina Garcia [...] dose on Tue09/21/21 at 0900, Until Discontinued 0805 ($ Given - Provider: Angelina Garcia [...] Zackery García RN) HYDROmorphone (Dilaudid) 0.2 mg/ml TOP FLAVOR ATTENDANT (CANCELED) TOP FLAVOR ATTENDANT Dose: 0.4 mg, TOP FLAVOR ATTENDANT Lockout Interval: 15 Minutes, One Hour Limit\Max Limit: 1.6 mg, Clinician Bolus (Load): 0.2 mg, Intravenous, TOP FLAVOR ATTENDANT, Starting on Avani 09/17/21 at 2000, Until Sun 22 at 1645, TOP FLAVOR ATTENDANT Pump Therapy: Normal Risk (TOP FLAVOR ATTENDANT Only) 0804 ($ New Bag/Syringe - Provider: Maeve Guardado, RN) PRN Medication Order 09/20/2021 09/21/2021 09/22/2021 [...] have swallowing difficulties, Starting on Tue09/15/21 at 215, Until Tue09/22/21 at 1049, If able to [...] have swallowing difficulties, Starting on Tue09/15/21 at 215, Until Tue09/22/21 at 1049, If able to [...] patient request must be documented in the 124 ($ Given - Provider: Angelina Garcia RN) [...] with IV Access, Starting on Tue09/15/21 at 215, Until Tue09/22/21 at 1048, If NOT able [...] MAR. documented in this encounter Care Teams Tax Evaluator Relationship Specialty Start Date End Date Maria Alejandra Benjamin MD [address] [place] [address] [place] [address] PCP - General Family Medicine Geriatric Medicine 09/16/21 09/20/21 Bertha Ochoa MD [address] [place] [phone] PCP - General 09/21/21 10/05/21 documented as of this encounter
--- OUTSIDE RECORDS SUMMARY | 2024-05-13 11:43 | XMS_ITS | Encounter Summary ---
Author Organization [employer] Care Team Providers Care Rural Route Mail Carrier Name Role Phone Charles Vogel MD Primary Care Provider [phone] Encounter Details Date Type Department Care Team [...] documented as of this encounter Care Teams Rural Route Mail Carrier Relationship Specialty Start Date End Date Charles Vogel MD [address] [place] [address] PCP - General Internal Medicine 02/21/19 documented as of this encounter
--- OUTSIDE RECORDS SUMMARY | 2024-05-13 11:43 | XMS_ITS | Encounter Summary ---
Author Organization [facility] Address [address] [place] [address] Care Team Providers Care Swimming Pool Installer Name Role Phone Maria Alejandra Benjamin MD Primary Care Provider [phone] Reason for Visit * Auth/Cert Specialty Diagnoses / Procedures Referred By Horacio t Referred To Contact Diagnoses Small Bowel Obstruction Referral ID Status Reason Start Date Expiration Date Visits Re quested Visits Authorized [id number] 1 1 Encounter Details Date Type Department Care Team (Late st Contact Info) Description 09/17/2021 10:05 AM CDT Anesthesia Event [facility] [address] [place] [phone] Darryl Samano MD [address] [facility] [place] [address] Gene Rangel DO [address] [place] [address] Anesthesia Record Procedure Summary Procedure [...] Tolerance: Well 09/15/212024 by Zita Solorio V. ELECTRICAL ASSISTANT-NEWS COMMENTATOR 09/17/21 1730 by Sonia Payne RN Epidural Date: 09/17/21; Time : 0800 09/17/21 0800 by Jeannette Ochoa APRN-FELI 09/18/21 0830 by Maeve Guardado RN Urethral Catheter 09/17/21; 1000 (in O R); General Anesthesia; 09/18/21; 1302; Per order; cmiller 09/17/21 1000 by Jeannette Ochoa APRN-NEWS COMMENTATOR 09/18/21 1302 by Maeve Guardado RN ETT [...] APRN-CNP Procedural Site (Incision) 09/17/21; 1135; Abdomen; [place], island dressing; 09/22/21; 1550 09/17/21 1135 by [...] Postop Pain: adequate (epidural not covering incisions, PRINTING TECHNICIAN managing pain) Postop Hydration: adequate Postop Nausea: [...] prolonged ventilatory support, post op ICU Monitoring, [place], stroke and ) discussed with patient. Patientvoiced [...] gently Restart Allergy medications once cleared by Medication Nurse PROCEDURE PERFORMED: Septoplasty Submucosal Reduction of Inferior Turbinates bilaterally Last Assessment & Plan: Continue nasal saline 2-3 times per day May blow nose gently Restart Allergy medications once cleared by Medication Nurse PROCEDURE PERFORMED: Septoplasty Submucosal Reduction of Inferior [...] surgery. Added automatically from request for surgery [id number] ??? Allergic rhinitis 10/22/2019 Priority: Not Prioritized Last Assessment & Plan: Continue nasal saline 2-3 times per day May blow nose gently Restart Allergy medications once cleared by Medication Nurse Last Assessment & Plan: Continue nasal saline 2-3 times per day May blow nose gently Restart Allergy medications once cleared by Medication Nurse ??? Elbow problem 09/10/2013 Priority: Not Prioritized [...] Results: Recent Labs Base Name 09/17/21 0807 [id number]* SPECIMENTYPE Arterial Recent Labs Component Name [...] Note Patient Location: OR. Procedure: Arterial Line ([id number]). Procedure Section Indications: continuous blood pressure monitoring. [...] Event Date/Time: 09/17/2021 10:16 AM Procedure: intubation ([id number]). Procedure Section: Sedation: under general anesthesia. Indications [...] Provider: Darryl Samano MD Provider #1: Gene Ragnel DO Performed the procedure. * Nicole Suárez [...] Miscellaneous Notes * Addendum Note - Darryl Samano MD - 10/05/2021 1:14 PM CDT Addendum created 10/05/21 1314 by Darryl Samano MD Cosign clinical note * Addendum Note - Sejal Motley MD - 09/18/2021 10:28 AM CDT Addendum created 09/18/21 1028 by Sejal Motley MD Clinical Note Signed * Anesthesia [...] Note Patient Location: OR. Procedure: Arterial Line ([id number]). Procedure Section ?? Indications: continuous blood pressure [...] Event Date/Time: ??09/17/2021 10:16 AM Procedure: intubation ([id number]). Procedure Section: ?? Sedation: under general anesthesia. [...] Starting on Avani 09/17/21 at 1146, Until Avnai 09/17/21 at 1217, Anesthesia Intra-op $ Given [...] mg documented in this encounter Care Teams Swimming Pool Installer Relationship Specialty Start Date End Date Maria Alejandra Benjamin MD [address] [place] [address] PCP - General Family Medicine Geriatric Medicine 09/16/21 09/20/21 documented as of this encounter
--- OUTSIDE RECORDS SUMMARY | 2024-05-13 11:43 | XMS_ITS | Encounter Summary ---
Author Organization [employer] Care Team Providers Care Help Desk Administrator Name Role Phone Charles Vogel MD Primary Care Provider [phone] Encounter Details Date Type Department Care Team [...] documented as of this encounter Care Teams Help Desk Administrator Relationship Specialty Start Date End Date Charles Vogel MD [address] [place] [address] PCP - General Internal Medicine 02/21/19 documented as of this encounter
--- OUTSIDE RECORDS SUMMARY | 2024-05-13 11:43 | XMS_ITS | Encounter Summary ---
Author Organization [employer] Care Team Providers Care Chain Splitter Name Role Phone Charles Vogel MD Primary Care Provider [phone] Encounter Details Date Type Department Care Team [...] documented as of this encounter Care Teams Chain Splitter Relationship Specialty Start Date End Date Charles Vogel MD [address] [place] [address] PCP - General Internal Medicine 02/21/19 documented as of this encounter
--- OUTSIDE RECORDS SUMMARY | 2024-05-13 11:43 | XMS_ITS | Encounter Summary ---
Author Organization [facility] Address [address] [place] [address] Phone Care Team Providers Care Vmware Architect Name Role Phone Charles Vogel MD Primary Care Provider Encounter Details Date Type Department Care Team (Late st Contact Info) Description 07/15/2021 Telephone [facility] - Gastroenterology [facility] [address] [place] [phone] Ruy Duran MD [address] [place] [address] Social History Tobacco Use Types Packs/Day Years [...] Prabhjot Armendariz CMA - 07/15/2021 10:09 AM CLAIMS VICE PRESIDENT 2nd attempt to schedule egd/colon, letter mailed to contact office [place] VICE PRESIDENT documented in this encounter Plan of Treatment Not on file documented as of this encounter Visit Diagnoses Not on filedocumented in this encounter Additional Health Concerns Assessment Noted Time PHQ-9 Depression Total Score: 0 12/12/19 21 9:00 AM CDT documented as of this encounter Care Teams Vmware Architect Relationship Specialty Start Date End Date Charles Vogel MD [address] [place] [address] PCP - General Internal Medicine 02/21/19 documented as of this encounter
--- OUTSIDE RECORDS SUMMARY | 2024-05-13 11:43 | XMS_ITS | Encounter Summary ---
Author Organization [facility] Address [address] [place] [address] Phone Care Team Providers Care Pharmacy Teacher Name Role Phone Charles Vogel MD Primary Care Provider [phone] Reason for Referral * Other (Routine) - Canceled Specialty Diagnoses / Procedures Referred By Contac t Referred To Contact Gastroenterology Diagnoses Stomach pain Nausea Constipation, unspecified constipation type Procedures GASTRO PROCEDURE Sonu Malave MD Referral ID Status Reason Start Date Expiration Date V isits Requested Visits Authorized [id number] Canceled 01/15/2021 1 1 * Other (Routine) - Canceled Specialty Diagnoses / Procedures Referred By Contac t Referred To Contact Gastroenterology Diagnoses Stomach pain Nausea Procedures GASTRO PROCEDURE Sonu Malave MD Referral ID Status Reason Start Date Expiration Date V isits Requested Visits Authorized [id number] Canceled 01/15/2021 1 1 * Radiology Services (Routine) - Closed Specialty Diagnoses / Procedures Referred By Contac t Referred To Contact Radiology Diagnoses Stomach pain Gall bladder polyp Nausea Constipation, unspecified constipation type Procedures NM HEPATOBILIARY WITH PHARM Sonu Malave MD Referral ID Status Reason Start Date Expiration Date Visits Re quested Visits Authorized [id number] Closed 01/15/2021 1 1 Reason for Visit * Reason Comments New Patient Abdominal Pain Constipation Nausea Anorexia Gas * Consult, Test & Initiate Treatment (Less Than 2 Weeks) - Closed Specialty Diagnoses / Procedures Referred By Contact Referred To Contact Gastroenterology Diagnoses Stomach pain Charles Vogel MD [address] [place] [address] Phone: tel: fax: [facility] Gastroenterology [facility] [address] [place] [address] Phone: tel: fax: Referral ID Status Reason Start Date Expiration Date Visits Re quested Visits Authorized [id number] Closed 01/05/2021 1 1 Encounter Details Date Type Department Care Team (Late st Contact Info) Description 01/15/2021 10:15 AM CDT Office Visit [facility] [address] [place] [address] Charles Vogel MD [address] [place] [address] Sonu [place]ave MD Nausea (Primary Dx); Stomach [...] MD - 01/15/2021 10:15 AM CDT [facility] GASTRO[facility]OLOGY CONSULT/H&P NAME: Chuck Barlow DATE [...] Joseph More M.D. JA: BRE Report ID: [id number] Reading Location: [place] [address] Impression: IMPRESSION: 0.6 cm gallbladder polyp, unchanged. [...] PM T: ??01/21/2021 12:25 PM Report ID: [id number] Reading Location: [id number] Procedure Note Jose López MD - 01/21/2021 [...] Jose López M.D. LB: GIAN Report ID: [id number] Reading Location: [id number] IMPRESSION: 1. No scintigraphic evidence of common [...] documented as of this encounter Care Teams Pharmacy Teacher Relationship Specialty Start Date End Date Charles Vogel MD [address] [place] [address] PCP - General Internal Medicine 02/21/19 documented as of this encounter
--- OUTSIDE RECORDS SUMMARY | 2024-05-13 11:43 | XMS_ITS | Encounter Summary ---
Author Organization [facility] Address [address] [place] [address] Phone Care Team Providers Care Job Analyst Name Role Phone Charles Vogel MD Primary Care Provider Encounter Details Date Type Department Care Team (Late st Contact Info) Description 03/10/2020 Refill [facility] [address] [place] [address] Charles Vogel MD [address] [place] [address] Social History Tobacco Use Types [...] 20 mg 1 qd, uses [facility] in [place]. States the pharmacy says they faxed us a request. documented in this encounter Plan of Treatment Not on file documented as of this encounter Visit Diagnoses Not on filedocumented in this encounter Care Teams Job Analyst Relationship Specialty Start Date End Date Charles Vogel MD [address] [place] [address] PCP - General Internal Medicine 02/21/19 documented as of this encounter
--- OUTSIDE RECORDS SUMMARY | 2024-05-13 11:44 | XMS_ITS | Encounter Summary ---
Author Organization [facility] Address [address] [place] [address] Phone Care Team Providers Care Light Technician Name Role Phone Charles Vogel MD Primary Care Provider Reason for Visit * Reason Comments Medication Refill Encounter Details Date Type Department Care Team (Late st Contact Info) Description 02/06/2020 Refill [facility] - Internal Medicine - [facility] [address] [place] [phone] Charles Vogel MD [address] [place] [address] Medication Refill Social History Tobacco Use Types Packs/Day Years Used Date Smoking Tobacco: Never Assessed Sex and Gender Information Value Date Recorded Sex Assigned at Not on file Legal Sex Male 7:15 PM CDT Gender Identity Not on file Sexual Orientation Not on file documented as of this encounter Miscellaneous Notes * Telephone Encounter - Antonieta Angle RN - 02/06/2020 7:58 AM CDT Please review and sign. documented in this encounter Plan of Treatment Not on file documented as of this encounter Visit Diagnoses Not on filedocumented in this encounter Care Teams Light Technician Relationship Specialty Start Date End Date Charles Vogel MD [address] [place] [address] PCP - General Internal Medicine 02/21/19 documented as of this encounter
--- OUTSIDE RECORDS SUMMARY | 2024-05-13 11:44 | XMS_ITS | Encounter Summary ---
Author Organization [facility] Address [address] [place] [address] Phone Care Team Providers Care Strategic Account Manager Name Role Phone Charles Vogel MD Primary Care Provider Reason for Visit * Reason Comments Medication Refill Encounter Details Date Type Department Care Team (Late st Contact Info) Description 01/23/2020 Refill [facility] - Internal Medicine - [facility] [place] [phone] Charles Vogel MD [address] [place] [address] Medication Refill Social History Tobacco [...] filedocumented in this encounter Care Teams Strategic Account Manager Relationship Specialty Start Date End Date Charles Vogel MD [address] [place] [address] PCP - General Internal Medicine 02/21/19 documented as of this encounter
--- OUTSIDE RECORDS SUMMARY | 2024-05-13 11:44 | XMS_ITS | Encounter Summary ---
Author Organization [facility] Address [address] [place] [address] Phone Care Team Providers Care Dental Billing Specialist Name Role Phone Charles Vogel MD Primary Care Provider Reason for Visit * Reason Onset Date Comments Medication Refill 01/24/2020 Encounter Details Date Type Department Care Team (Late st Contact Info) Description 01/23/2020 Refill [facility] - Internal Medicine - [facility] [place] [phone] Charles Vogel MD [address] [place] [address] Medication Refill Social History Tobacco [...] 1:58 PM CDT ----- Message from Bety Bach sent at 01/23/2020 11:49 AM CDT ----- Regarding: RX R/F HAVE YOU CALLED YOUR PHARMACY? yes Medication: AMLODIPINE 5 MG Pharmacy:[facility] Call back number:[phone] DETAILS documented in this encounter Plan of Treatment Not on file documented as of this encounter Visit Diagnoses Not on filedocumented in this encounter Care Teams Dental Billing Specialist Relationship Specialty Start Date End Date Charles Vogel MD [address] [place] [address] PCP - General Internal Medicine 02/21/19 documented as of this encounter
== END 2024-05-06 11:21 | disposition home or self-care (01) ==
PROVIDERS: Emergency Provider Nurse Practitioner Family; PCP Internal Medicine
DX: J06.9 Acute upper respiratory infection, unspecified (principal); B34.9 Viral infection, unspecified; Z20.822 Contact with and (suspected) exposure to COVID-19; I10 Essential (primary) hypertension; E78.5 Hyperlipidemia, unspecified; K21.9 Gastro-esophageal reflux disease without esophagitis
CPT/HCPCS: 87081; 87426; 87804; 87880; 99213; G0463